=== PATIENT | female | born 1955 | race Caucasian/White ===

== ENCOUNTER 2022-11-09 11:57 | Outpatient (REF) | payer MEDICARE, SELFPAY ==
[2022-11-09 12:40] LABS: Bilirubin Urine NEGATIVE (NEGATIVE); Blood Urine NEGATIVE (NEGATIVE); Clarity Urine CLEAR (CLEAR); Color Urine LT. YELLOW (YELLOW); Glucose Urine UA NEGATIVE (NEGATIVE); Ketones Urine NEGATIVE (NEGATIVE); Leukocyte Esterase Urine MODERATE (NEGATIVE); Nitrite Urine POSITIVE (NEGATIVE); Protein Urine NEGATIVE (NEG/TRACE); Specific Gravity Urine 1.025 (1.005-1.025); Urobilinogen Urine 0.2 EU/dL (0.2-1.0); pH Urine 5.5 (5.0-9.0)
[2022-11-09 14:02] LABS: Thyroid Stimulating Hormone 1.967 uIU/mL (0.358-3.740)
== END 2022-11-09 11:58 | disposition home or self-care (01) ==
LOC: LAB 11:57
PROVIDERS: PCP Family Medicine; Visit Provider Family Medicine
DX: N39.0 Urinary tract infection, site not specified (principal)
CPT/HCPCS: 36415; 81003; 84443; 87086; 87150; 87186

== ENCOUNTER 2023-04-11 09:42 | Outpatient (OUT) | payer MEDICARE, SELFPAY ==
--- NOTE | 2023-04-11 09:47 | XR_ITS ---
[address] [address] Patient Name: MARLEY OSBORN MRN: [id number] date: 1955 Sex: F Assigned Patient Location: [facility] Current Patient Location: [facility] Accession/Order Number: [id number] Exam Date: 04/11/2023 10:10 Report Date: 04/11/2023 11:20 At the request of: KATYA WEAVER Procedure: XR DEXA axial skeleton EXAMINATION: XR DEXA axial skeleton HISTORY: Primary Ovarian Failure Z00.00 COMPARISON: No relevant comparison available. TECHNIQUE: Dual-energy X-ray absorptiometry (DXA) was performed. FINDINGS: SPINE ANALYSIS: Average bone mineral density is 1.237 g/cm2. T-score (standard deviation relative to young adult mean): 0.5 . HIP ANALYSIS: Lowest bone mineral density is within the right femoral trochanter, 0.587 g/cm2. T-score (standard deviation relative to young adult mean): -2.3 . XR/XR DEXA axial skeleton IMPRESSION: [employer] Classification: Osteopenia - Moderate Fracture Risk Electronically authenticated by: DENNIS GALEAS Date: 04/11/2023 11:20
--- NOTE | 2023-04-11 09:47 | MM_ITS ---
Patient Name: MARLEY OSBORN MR#: [id number] : 1955 Exam Date: 04/11/2023 Ordering Doctor: MRS. KATYA WEAVER . RADIOLOGY REPORT PROCEDURE: MM TOMOSYNTHESIS SCREENING BI COMPARISON: MG MAMM SCREEN 3D CHANA CAD, 04/17/2022. MG MAMM SCREEN 3D CHANA CAD, 04/16/2021. MG MAMM SCREEN CHANA W CAD, 04/10/2020. MG MAMM CHANA SCRN W CAD DIG, 07/04/2006. INDICATIONS: Screening Calculator Name NCI Breast Cancer Risk Assessment Tool 5 Year Breast Cancer Risk 5.50% Lifetime Breast Cancer Risk 16.90% Personal Breast Cancer No Personal Ovarian Cancer No Treatments None Family Cancers Mother with breast cancer at age 86; Brother with prostate cancer at age 64; Nephew with colon cancer at age 47; Grandfather-paternal with colon cancer at age ~60; Grandfather-paternal with lung cancer at age 30; Grandmother-maternal with uterine cancer at age ~50. LOCATION: [facility] BREAST COMPOSITION: Heterogeneously dense,which may obscure small masses. FINDINGS: DIAGNOSTIC CATEGORY 0--INCOMPLETE: NEED ADDITIONAL IMAGING EVALUATION. RIGHT BREAST: Spiculated appearing 8 mm mass within posterior upper inner quadrant. Spot magnification views and ultrasound evaluation recommended. LEFT BREAST: No significant suspicious finding. No significant change has occurred. RECOMMENDATIONS: ADDITIONAL MAMMOGRAPHIC VIEWS REQUIRED: RIGHT BREAST - RIGHT CRANIOCAUDAL SPOT MAGNIFICATION VIEW - RIGHT OBLIQUE SPOT MAGNIFICATION VIEW - ULTRASOUND: RIGHT BREAST PLEASE NOTE: A NORMAL MAMMOGRAM DOES NOT EXCLUDE THE POSSIBILITY OF BREAST CANCER. A CLINICALLY SUSPICIOUS PALPABLE LUMP SHOULD BE BIOPSIED. Dictated by: Myles Abraham M.D. on 04/11/2023 at 14:37 Approved by: Myles Abraham M.D. on 04/11/2023 at 14:46
== END 2023-04-11 09:43 | disposition home or self-care (01) ==
PROVIDERS: PCP Family Medicine; Visit Provider Nurse Practitioner
DX: Z12.31 Encounter for screening mammogram for malignant neoplasm of breast (principal); E28.39 Other primary ovarian failure; M85.80 Other specified disorders of bone density and structure, unspecified site; Z80.3 Family history of malignant neoplasm of breast; Z80.0 Family history of malignant neoplasm of digestive organs; Z80.1 Family history of malignant neoplasm of trachea, bronchus and lung; Z80.42 Family history of malignant neoplasm of prostate; Z80.8 Family history of malignant neoplasm of other organs or systems; N63.12 Unspecified lump in the right breast, upper inner quadrant
CPT/HCPCS: 77063; 77067; 77080

== ENCOUNTER 2023-05-01 10:01 | Outpatient (OUT) | payer MEDICARE, SELFPAY ==
--- NOTE | 2023-05-01 10:04 | MM_ITS ---
Patient Name: MARLEY OSBORN MR#: [id number] : 1955 Exam Date: 05/01/2023 Ordering Doctor: MRS. KATYA WEAVER . RADIOLOGY REPORT PROCEDURE: MM DIAGNOSTIC MAMMO UNILAT RT, 05/01/2023, 10:25 US BREAST RT LIMITED, 05/01/2023, 10:36 COMPARISON: MM TOMOSYNTHESIS SCREENING BI, 04/11/2023. MG MAMM SCREEN 3D CHANA CAD, 04/17/2022. MG MAMM SCREEN 3D CHANA CAD, 04/16/2021. MG MAMM SCREEN CHANA W CAD, 04/10/2020. INDICATIONS: Abnormal Screening Mammogram, Breast Mass Calculator Name NCI Breast Cancer Risk Assessment Tool 5 Year Breast Cancer Risk 5.50% Lifetime Breast Cancer Risk 16.90% Personal Breast Cancer No Personal Ovarian Cancer No Treatments None Family Cancers Mother with breast cancer at age 86; Brother with prostate cancer at age 64; Nephew with colon cancer at age 47; Grandfather-paternal with colon cancer at age ~60; Grandfather-paternal with lung cancer at age 30; Grandmother-maternal with uterine cancer at age ~50. LOCATION: [facility] BREAST COMPOSITION: Heterogeneously dense,which may obscure small masses. FINDINGS: DIAGNOSTIC CATEGORY 4--SUSPICIOUS FOR MALIGNANCY. FINDING DOES NOT EXHIBIT CLASSIC FINDINGS OF BREAST CANCER: RIGHT BREAST: Spot magnification views demonstrate an 8 mm poorly marginated, spiculated lesion within the posterior upper inner quadrant approximately 3 o'clock. Ultrasound evaluation demonstrates a poorly defined 6 x 6 x 4 mm mass at the 4 o'clock position 3.8 cm from the nipple. Ultrasound-guided tissue sampling is recommended. RECOMMENDATIONS: ULTRASOUND-GUIDED CORE BIOPSY: RIGHT BREAST PLEASE NOTE: A NORMAL MAMMOGRAM DOES NOT EXCLUDE THE POSSIBILITY OF BREAST CANCER. A CLINICALLY SUSPICIOUS PALPABLE LUMP SHOULD BE BIOPSIED. Dictated by: Myles Abraham M.D. on 05/01/2023 at 13:04 Approved by: Myles Abraham M.D. on 05/01/2023 at 13:12
--- OUTSIDE RECORDS SUMMARY | 2023-05-21 00:47 | XMS_ITS | CCD ---
Author Name Unknown Address [address] [place] [address] Organization [facility] Care Team Providers Care Legal Specialist Name Role Phone MD Melva Escobedo Primary Care Provider MD Reggie Quintana Admit Provider MD Reggie Quintana Attending Provider [phone] MD Judith Cordoba Other Provider [phone] Jamil Lundberg MD Primary Care Provider MICHELE LOZANO Attending Unavailable ESCOBEDO ., DR MELVA Laboy Admitting Unavailable ESCOBEDO ., DR MELVA Laboy Consulting Unavailable ESCOBEDO ., DR MELVA Laboy Primary Care Unavailable ESCOBEDO ., DR MELVA Laboy Attending Unavailable ESCOBEDO ., DR MELVA Laboy Consulting Unavailable ESCOBEDO ., DR MELVA Laboy Primary Care Unavailable ESCOBEDO ., DR MELVA Laboy Admitting Unavailable ESCOBEDO ., DR MELVA Laboy Attending Unavailable HAY ., DR TENORIO Attending Unavailable HAY ., DR TENORIO Admitting Unavailable SAMANTHA .CUCO Consulting Unavailable ESCOBEDO ., DR MELVA Laboy Primary Care Unavailable HAY ., DR TENORIO Consulting Unavailable ESCOBEDO ., DR MELVA Laboy Consulting Unavailable ESCOBEDO ., DR MELVA Laboy Primary Care Unavailable ESCOBEDO ., DR MELVA Laboy Admitting Unavailable ESCOBEDO ., DR MELVA Laboy Attending Unavailable ESCOBEDO ., DR MELVA Laboy Primary Care Unavailable SORAYA ., WILLIAMS Attending Unavailable SORAYA ., WILLIAMS Admitting Unavailable HOY ., DR SOLORZANO Consulting Unavailable ZIEBER, DR DENNIS Soto Consulting Unavailable PAY ., DR FORD Consulting Unavailable GRECHNY .SETH Consulting UnavailDENNIS Kate Consulting Unavailable ALYX GUZMAN Consulting Unavailable MICHELE LOZANO Consulting Unavailable DARAMOLRUCHI Hughes Consulting Unavailable SORAYA ., WILLIAMS Consulting Unavailable ESCOBEDO ., DR MELVA Laboy Primary Care Unavailable FAWWAD, SANTAMARIA H Attending Unavailable FAWWAD, SANTAMARIA H Admitting Unavailable FRANSISCO DE LA CRUZ Consulting Unavailable FAWWAD, SANTAMARIA H Consulting Unavailable GAUTAM, THANIA Consulting Unavailable OWOYELE, WILLY Consulting Unavailable TATUM WHEAT Attending Unavailable TATUM WHEAT Admitting Unavailable ESCOBEDO ., DR MELVA Laboy Primary Care Unavailable TATUM WHEAT Consulting Unavailable JONNY ALEMAN Consulting Unavailable ESCOBEDO ., DR MELVA Laboy Admitting Unavailable ESCOBEDO ., DR MELVA Laboy Consulting Unavailable ESCOBEDO ., DR MELVA Laboy Primary Care Unavailable ESCOBEDO ., DR MELVA Laboy Attending Unavailable GUDELIA, DR DENNIS Soto Consulting Unavailable HAY ., DR TENORIO Consulting Unavailable FAWDARRELL, H Consulting Unavailable JEFF OAKES Consulting Unavailable ESCBOEDO ., DR MELVA Laboy Consulting Unavailable ESCOBEDO ., DR MELVA Laboy Attending Unavailable ESCOBEDO ., DR MELVA Laboy Primary Care Unavailable ESCOBEDO ., DR MELVA Laboy Admitting Unavailable [place], DR KAYLEY Snow Consulting Unavailable ESCOBEDO ., DR MELVA Laboy Primary Care Unavailable ESCOBEDO ., DR MELVA Laboy Consulting Unavailable ESCOBEDO ., DR MELVA Laboy Admitting Unavailable ESCOBEDO ., DR MELVA Laboy Attending Unavailable ESCOBEDO ., DR MELVA Laboy Consulting Unavailable ESCOBEDO ., DR MELVA Laboy Primary Care Unavailable ESCOBEDO ., DR MELVA Laboy Attending Unavailable ESCOBEDO ., DR MELVA Laboy Admitting Unavailable ESCOBEDO ., DR MELVA Laboy Consulting Unavailable ESCOBEDO ., DR MELVA Laboy Attending Unavailable ESCOBEDO ., DR MELVA Laboy Primary Care Unavailable ESCOBEDO ., DR MELVA Laboy Admitting Unavailable DORA LAZARO Attending Unavailable DORA LAZARO Admitting Unavailable ESCOBEDO ., DR MELVA Laboy Primary Care Unavailable DORA LAZARO Consulting Unavailable ESCOBEDO ., DR MELVA Laboy Primary Care Unavailable BLAKE, MICHELE Consulting Unavailable MICHELE LOZANO Attending Unavailable MICHELE LOZANO Admitting Unavailable ESCOBEDO ., DR MELVA Laboy Primary Care Unavailable ESCOBEDO ., DR MELVA Laboy Admitting Unavailable ESCOBEDO ., DR MELVA Laboy Consulting Unavailable ESCOBEDO ., DR MELVA Laboy Attending Unavailable AHMED, IRFAN Primary Care Unavailable ZAIRA SARAVIA Attending Unavailable NHAN JUNE Referring Unavailable AHMED, IRFAN Primary Care Unavailable AHMED, IRFAN Primary Care Unavailable AZUL THOMPSON Referring Unavailable AHMED, IRFAN Primary Care Unavailable AHMED, IRFAN Referring Unavailable AHMED, IRFAN Primary Care Unavailable AHMED, IRFAN Referring Unavailable AHMED, IRFAN Primary Care Unavailable MEE HOFFMANN Referring Unavailable AHMED, IRFAN Primary Care Unavailable MELVA MORALES Referring Unavailable Ahmed, Irfan Primary Care Unavailable Frank MOLDER HELPER-TAXONOMIST, Malissa Soto Consulting Un available Alexandra ROPER, Louie rFeeman Admitting Unavailable Alexandra ROPER, Louie Freeman Attending Unavailable Luz MOLDER HELPER-TAXONOMIST, Cintia Rincon Consulting Unavailable Marosc MOLDER HELPER-TAXONOMIST, Rachel Delcid Consulting Margoth anusha Schulz, Cody Francis Consulting Unavailab shira Casas MD, Kei Veloz Consulting Unavailabl e Ahmed, Irfan Consulting Unavailable Judith Cordoba Consulting Unavailable Reggie Quintana Attending Unavailable Reggie Quintana Admitting Unavailable Melva Escobedo Primary Care Unavailable Melva Escobedo Primary Care Unavailable Marty Mclean Attending Unavailab Marty Ames Admitting Unavailab JOSEPH Quintero Attending Unavailable MELVA ESCOBEDO Attending Unavailable EzequielKeya Attending Unavailable EzequielKeya Attending Unavailable EzequielKeya Attending Unavailable ESCOBEDOMELVA KINNEY Attending Unavailable ESCOBEDOMELVA KINNEY Attending Unavailable EzequielKeya Attending Unavailable Allergies Allergy Classification Reported Allergen(s) Allergy Type Date of Onset Reaction(s) Facility (4 sources) Amoxicillin; Translations: [Amoxicillin] Drug Allergy 5 [facility] (4 sources) Cephalexin; Translations: [CEPHALEXIN] Drug Allergy 2 [facility] (3 sources) Lactose; Translations: [lactose] Drug Allergy 5 [facility] (2 sources) Sulfonamides (Antibiotic); Translations: [Sulfa (Sulfonamide Antibiotics)] Allergy to substance 2 [facility] (3 sources) Penicillins; Translations: [PENICILLINS] Propensity to adverse reactions to drug (disorder) 3 [facility] (3 sources) Sulfamethoxazole; Translations: [SULFAMETHOXAZOLE ] Drug Allergy 3 [facility] Repository (3 sources) Cephalexin; Translations: [Keflex] Drug Allergy 5 [facility] Repository (1 source) Sulfonamides (Antibiotic) Drug allergy (disorder) 5 [facility] Repository (1 source) Sulfonamides (Antibiotic); Translations: [sulfa drugs] Propensity to adverse reactions to drug (disorder) [facility] Repository Medications Current Medications Medication Drug Class(es) Dates Sig (Normalized) Sig (Original) acetaminophen 500 mg oral tablet (2 sources) take 1 tablet by mouth every six hours as needed for pain acetaminophen (TYLENOL) 500 MG tablet Take 1 tablet by mouth every 6 hours as needed for Pain 0 Active amitriptyline hydrochloride 10 mg oral tablet (1 source) Tricyclic Antidepressant Start: 05-30-20 22 take 10 mg by mouth at bedtime Amitriptyline Active 10 MG PO Bedtime May 30, 2022 12:00am apixaban 2.5 mg oral tablet (2 sources) Factor Xa Inhibitor take 2 tablets by mouth twice daily apixaban (ELIQUIS) 2.5 MG TABS tablet Take 2 tablets by mouth 2 times daily 0 Active benztropine mesylate 2 mg oral tablet (2 sources) Anticholinergic, Antihistamine take 1 tablet by mouth twice daily benztropine (COGENTIN) 2 MG tablet Take 1 tablet by mouth 2 times daily 0 Active bisoprolol fumarate 2.5 mg / hydroCHLOROthiazide 6.25 mg oral tablet (1 source) Thiazide Diuretic, beta-Adrenergic Js Start: 05-30-20 22 take 1 tablet by mouth once daily Bisoprolol-Hydrochloro thiazide Active 1 TAB PO Daily May 30, 2022 12:00am calcium chloride 0.001 meq/ml / glucose 50 mg/ml / potassium chloride 0.004 meq/ml / sodium chloride 0.103 meq/ml / sodium lactate 0.028 meq/ml injectable solution (1 source) Start: 10-09-19 23 dextrose 5 % in lactated ringers infusion diphenhydrAMINE hydrochloride 25 mg oral capsule (2 sources) Histamine-1 Receptor Antagonist take 1 capsule by mouth every six hours as needed diphenhydrAMINE (BENADRYL) 25 MG capsule Take 1 capsule by mouth every 6 hours as needed for Itching 0 Active docusate sodium 100 mg oral capsule (2 sources) take 1 capsule by mouth twice daily docusate sodium (COLACE) 100 MG capsule Take 1 capsule by mouth 2 times daily 0 Active ergocalciferol 1.25 mg oral capsule (1 source) Provitamin D2 Compound Start: 06-18-19 take 1250 ug by mouth every week Ergocalciferol (Vitamin D2) Active 1250 MCG PO Q7D June 18, 2022 12:00am 1 ml haloperidol 5 mg/ml injection (2 sources) Typical Antipsychotic haloperidol lactate (HALDOL) 5 MG/ML injection Inject into the muscle every 6 hours as needed for Agitation 0 Active hydroCHLOROthiazide 12.5 mg oral tablet (2 sources) Thiazide Diuretic take 0.5 tablet by mouth once daily as needed hydroCHLOROthiazide (HYDRODIURIL) 12.5 MG tablet Take 0.5 tablets by mouth daily as needed 0 Active levothyroxine sodium 0.1 mg oral tablet (2 sources) l-Thyroxine take 0.5 tablet by mouth once daily levothyroxine (SYNTHROID) 100 MCG tablet Take 0.5 tablets by mouth Daily 0 Active LORazepam 1 mg oral tablet (4 sources) Benzodiazepine take 1 tablet by mouth every six hours as needed for anxiety LORazepam (ATIVAN) 1 MG tablet Take 1 tablet by mouth every 6 hours as needed for Anxiety. Max Daily Amount: 4 mg 0 Active LORazepam (ATIVA N) 2 MG/ML injection Inject 0.5 mLs into the muscle every 6 hours as needed. Max Daily Amount: 4 mg 0 Active metroNIDAZOLE 500 mg oral tablet (1 source) Nitroimidazole Antimicrobial Start: 06-18-2022 take 500 mg by mouth twice daily Metronidazole Active 500 MG PO Twice daily June 18, 2022 12:00am miconazole nitrate 20 mg/ml vaginal cream (1 source) Azole Antifungal Start: 06-18-2022 Miconazole Nitrate (Miconazole-7) 2 % Cream Active 1 APPLICATOR VAGINAL Daily at bedtime June 18, 2022 12:00am last dose 06/21/22 microencapsulated potassium chloride 20 meq extended release oral tablet (3 sources) Start: 06-11-2022 Potassium Chloride (Klor-Con M20) 20 mEq Tablet,Er Particles/Crystals Active 20 MEQ PO Daily June 11, 2022 12:00am take 20 mEq by mouth twice daily potassium chloride (KLOR-CON) 20 MEQ packet Take 20 mEq by mouth 2 times daily 0 Active risperiDONE 3 mg oral tablet (8 sources) Atypical Antipsychotic Start: 06-11-2022 take 1 mg by mouth once daily Risperidone Active 1 MG PO Daily 15 June 11, 2022 12:00am Start: 06-11-2022 take 3 mg by mouth at bedtime Risperidone Active 3 MG PO Bedtime 15 June 11, 2022 12:00am Start: 05-30-2022 End: 06-11-2022 take 2 mg by mouth at bedtime Risperidone Discontinued 2 MG PO Bedtime May 30, 2022 12:00am June 11, 2022 8:35am Start: 05-30-2022 End: 06-11-2022 take 2 mg by mouth at bedtime Risperidone Discontinued 0.5 MG PO Bedtime May 30, 2022 12:00am June 11, 2022 8:35am give with 2mg dose risperiDONE micr ospheres ER (RISPERDAL CONSTA) 25 MG SRER injection Inject 2 mLs into the muscle every 14 days 0 Active ziprasidone 20 mg oral capsule (1 source) Atypical Antipsychotic Start: 06-18-2022 take 20 mg by mouth twice daily Ziprasidone Hcl Active 20 MG PO Twice daily 60 June 18, 2022 12:00am Completed/Discontinued Medications Medication Drug Class(es) Dates Sig (Normalized) Sig (Original) ARIPiprazole 5 mg oral tablet (1 source) Atypical Antipsychotic Start: 05-30-2022 End: 06-11-2022 take 5 mg by mouth once daily Aripiprazole Discontinued 5 MG PO Daily May 30, 2022 12:00am June 11, 2022 8:35am 200 ml ciprofloxacin 2 mg/ml injection (3 sources) Quinolone Antimicrobial Start: 10-08-2022 End: 10-09-2022 ciprofloxacin (CIPRO) IVPB 400 mg take 1 tablet by mouth twice dominga ly ciprofloxacin (CIPRO) 500 MG tablet Take 1 tablet by mouth 2 times daily 0 Active Problems Active Problems Problem Classification Problem Date Documented Date Episodic/Chronic Anxiety disorders (1 source) Anxiety disorder, unspecified; Translations: [ANXIETY DISORDER UNSPECIFIED] Onset: 10-09-2022 Chronic Bacterial infection; unspecified site (2 sources) Klebsiella pneumoniae [K. pneumoniae] as the cause of diseases classified elsewhere; Translations: [Unspecified Escherichia coli [E. coli] as the cause of diseases classified elsewhere] Onset: 09-12-2022 Episodic Cardiac dysrhythmias (8 sources) Paroxysmal atrial fibrillation; Translations: [Unspecified atrial fibrillation] Onset: 09-12-2022 Chronic Cardiac dysrhythmias (3 sources) Bradycardia, unspecified; Translations: [Tachycardia, unspecified] Onset: 06-10-2022 Episodic Chronic kidney disease (1 source) Chronic kidney disease; Translations: [CHRONIC KIDNEY DISEASE STAGE 3B] Onset: 09-12-2022 Coagulation and hemorrhagic disorders (1 source) Thrombocytopenia, unspecified; Translations: [THROMBOCYTOPENIA UNSPECIFIED] Onset: 09-12-2022 Chronic Deficiency and other anemia (1 source) Anemia; Translations: [Anemia, unspecified] 06-01-2022 Episodic Delirium, dementia, and amnestic and other cognitive disorders (1 source) Unspecified dementia without behavioral disturbance; Translations: [UNSP JAMEY UNS SEV W/O DSTRB ANXTY] Onset: 10-09-2022 Chronic Disorders of lipid metabolism (1 source) Hyperlipidemia, unspecified; Translations: [HYPERLIPIDEMIA UNSPECIFIED] Onset: 04-29-2022 Chronic Essential hypertension (10 sources) Hypertensive disorder; Translations: [Essential (primary) hypertension] Onset: 12-12-2021 06-01-2022 Chronic Hypertension with complications and secondary hypertension (1 source) Hypertensive chronic kidney disease with stage 1 through stage 4 chronic kidney disease, or unspecified chronic kidney disease; Translations: [HTN CKD W/STAGE 1-4 CKD/UNS CKD] Onset: 09-12-2022 Chronic Menopausal disorders (1 source) Hormone replacement therapy; Translations: [HORMONE REPLACEMENT THERAPY] Onset: 10-09-2022 Episodic Mood disorders (1 source) Mood disorders; Translations: [DEPRESSION UNSPECIFIED] Onset: 10-09-2022 Nonspecific chest pain (2 sources) Other chest pain; Translations: [Other chest pain] Onset: 09-16-2022 Episodic Other aftercare (5 sources) Other terminal block assembler (current) drug therapy; Translations: [OTH METER ATTENDANT CURRENT DRUG THERAPY] Onset: 11-29-2021 Episodic Other endocrine disorders (1 source) Hypoglycemia, unspecified; Translations: [HYPOGLYCEMIA UNSPECIFIED] Onset: 06-10-2022 Chronic Other nervous system disorders (1 source) Metabolic encephalopathy; Translations: [METABOLIC ENCEPHALOPATHY] Onset: 09-12-2022 Chronic Other nervous system disorders (1 source) Difficulty in walking, not elsewhere classified; Translations: [Difficulty in walking, not elsewhere classified] Onset: 05-30-2022 Chronic Other nutritional; endocrine; and metabolic disorders (1 source) Obesity, unspecified; Translations: [OBESITY UNSPECIFIED] Onset: 10-09-2022 Chronic Other nutritional; endocrine; and metabolic disorders (1 source) Body mass index (BMI) 31.0-31.9, adult; Translations: [BODY MASS INDEX BMI 31.0-31.9 ADULT] Onset: 08-19-2022 Chronic Other nutritional; endocrine; and metabolic disorders (1 source) Body mass index (BMI) 26.0-26.9, adult; Translations: [BODY MASS INDEX BMI 26.0-26.9 ADULT] Onset: 10-09-2022 Episodic Residual codes; unclassified (1 source) Confusional state; Translations: [Disorientation, unspecified] 06-01-2022 Episodic Residual codes; unclassified (1 source) Neurocognitive disorder; Translations: [Unspecified symptoms and signs involving cognitive functions and awareness] 06-05-2022 Episodic Residual codes; unclassified (2 sources) Altered mental status; Translations: [Altered mental status, unspecified] 06-14-2022 Episodic Residual codes; unclassified (1 source) Hypothermia, not associated with low environmental temperature; Translations: [HYPOTHERMIA NOT W/LOW ENVIR TEMP] Onset: 09-12-2022 Episodic Schizophrenia and other psychotic disorders (5 sources) Schizophrenia; Translations: [Schizophrenia, unspecified] Onset: 05-30-2022 05-31-2022 Chronic Thyroid disorders (3 sources) Hypothyroidism, unspecified; Translations: [HYPOTHYROIDISM UNSPECIFIED] Onset: 08-27-2022 Chronic Unclassified (4 sources) CONTACT W/AND (SUSP) EXPOS COVID-19; Translations: [CONTACT W/AND (SUSP) EXPOS COVID-19] Onset: 05-11-2022 Unclassified (1 source) CHRN KIDNEY DISEASE STG 3 UNSP; Translations: [CHRN KIDNEY DISEASE STG 3 UNSP] Onset: 06-10-2022 Viral infection (1 source) COVID-19; Translations: [COVID-19] Onset: 12-19-2021 Past or Other Problems Problem Classification Problem Date Documented Da te Episodic/Chronic Acute and unspecified renal failure (1 source) Acute kidney failure, unspecified; Translations: [ACUTE KIDNEY FAILURE UNSPECIFIED] Onset: 06-10-2022 Episodic Deficiency and other anemia (3 sources) Anemia, unspecified; Translations: [Anemia, unspecified] Onset: 05-30-2022 06-18-2022 Episodic E Codes: Fall (1 source) Fall in (into) shower or empty bathtub, initial encounter; Translations: [FALL IN SHOWER/EMPTY BATHTUB INIT] Onset: 12-18-2021 Episodic E Codes: Natural/environment (1 source) Exposure to other specified factors, initial encounter; Translations: [EXPOSURE OTHER SPEC FACTORS INITIAL] Onset: 06-10-2022 Episodic Fluid and electrolyte disorders (10 sources) Hypokalemia; Translations: [Hypokalemia] Onset: 05-30-2022 06-01-2022 Episodic Genitourinary symptoms and ill-defined conditions (3 sources) Hematuria, unspecified; Translations: [HEMATURIA UNSPECIFIED] Onset: 04-03-2022 Episodic Immunizations and screening for infectious disease (1 source) Encounter for immunization; Translations: [ENCOUNTER FOR IMMUNIZATION] Onset: 12-18-2021 Episodic Inflammatory diseases of female pelvic organs (3 sources) Vaginitis; Translations: [Acute vaginitis] Onset: 05-30-2022 06-15-2022 Episodic Malaise and fatigue (6 sources) Other fatigue; Translations: [Weakness] Onset: 05-30-2022 Episodic Open wounds of head; neck; and trunk (4 sources) Laceration without foreign body of other part of head, initial encounter; Translations: [LAC W/O FB OTH PART HEAD INIT ENC] Onset: 12-15-2021 Episodic Other injuries and conditions due to external causes (1 source) Hypothermia, initial encounter; Translations: [HYPOTHERMIA INITIAL ENCOUNTER] Onset: 06-10-2022 Episodic Other screening for suspected conditions (not mental disorders or infectious disease) (4 sources) Encounter for screening mammogram for malignant neoplasm of breast; Translations: [ENC SCR MAMMO MALIG NEOPLASM BREAST] Onset: 04-17-2022 Episodic Pneumonia (except that caused by tuberculosis or sexually transmitted disease) (1 source) Pneumonia, unspecified organism; Translations: [PNEUMONIA UNSPECIFIED ORGANISM] Onset: 04-29-2022 Episodic Residual codes; unclassified (8 sources) Altered mental status, unspecified; Translations: [Altered mental status] Onset: 05-30-2022 06-18-2022 Episodic Residual codes; unclassified (2 sources) Disorientation, unspecified; Translations: [Unspecified psychosis] Onset: 05-30-2022 06-18-2022 Episodic Residual codes; unclassified (2 sources) Unspecified symptoms and signs involving cognitive functions and awareness; Translations: [Unspecified persistent mental disorders due to conditions classified elsewhere] Onset: 05-30-2022 06-18-2022 Episodic Residual codes; unclassified (1 source) Family history of malignant neoplasm of digestive organs; Translations: [FAM HX MALIG NEOPLASM DIGESTIV ORGN] Onset: 06-10-2022 Episodic Residual codes; unclassified (1 source) Family history of malignant neoplasm of other genital organs; Translations: [FAM HX MALIG NEOPLSM OTH GENIT ORGN] Onset: 06-10-2022 Episodic Residual codes; unclassified (1 source) Family history of ischemic heart disease and other diseases of the circulatory system; Translations: [FAM HX ISCHEMIC HRT DZ OTH DZ CIRC] Onset: 06-10-2022 Episodic Residual codes; unclassified (1 source) Physical restraint status; Translations: [PHYSICAL RESTRAINT STATUS] Onset: 06-10-2022 Episodic Residual codes; unclassified (1 source) Family history of malignant neoplasm of breast; Translations: [FAMILY HX MALIG NEOPLASM OF BREAST] Onset: 04-20-2022 Episodic Residual codes; unclassified (1 source) Family history of malignant neoplasm of trachea, bronchus and lung; Translations: [FAM HX MALIG NEOPLSM TRACH BRON LNG] Onset: 04-20-2022 Episodic Residual codes; unclassified (1 source) Family history of malignant neoplasm of prostate; Translations: [FAMILY HX MALIG NEOPLASM PROSTATE] Onset: 04-20-2022 Episodic Unclassified (1 source) CONTACT W/AND (SUSP) EXPOS COVID-19; Translations: [CONTACT W/AND (SUSP) EXPOS COVID-19] Onset: 05-06-2022 Urinary tract infections (13 sources) Urinary tract infectious disease; Translations: [Urinary tract infection, site not specified] Onset: 05-28-2022 06-01-2022 Episodic Results Test Name Value Interpretation Reference Range Facil ity RAD - Ultrasound Reporton RAD - Ultrasound Report [id number]#1.00TIFF [facility] Physician Orderon 05-02-2023 Physician Order [id number]#1.00TIFF [facility] Dexa Scanson 04-16-2023 Dexa Scans [id number]#1.00TIF F [facility] Lab Reportson 04-16-2023 Lab Reports [id number]#1.00TI FF [facility] Outside Mammographyon 2022 Outside Mammography [id number]#1.00TIFF [facility] Hospice Recordson 03-19-2023 Hospice Records [id number]#1.00TIFF [facility] Ambulatory Visit Summaryon 0 02-21-2023 Ambulatory Visit Summary ALYSEMARLEY OGDEN Martinez :1955 Visit Date:02/21/2023 Ambulatory Visit Instructions Your Diagnosis Annual visit for general adult medical examination without abnormal findings Anxiety disorder Major depression with psychotic features Fall HTN (hypertension) Hyperlipidemia, unspecified LISA (obstructive sleep apnea) Class 1 obesity due to excess calories with body mass index (BMI) of 31.0 to 31.9 in adult Screening mammogram for breast cancer Ovarian failure Tests Performed BD Bone Density DEXA -- Results Pending -- MA Mamm Screen w/CAD if perf and 3D Panchito -- Results Pending -- Please visit your patient portal for your results or contact your primary care physician. Your Care Team Attending Physician - Keya Lucas Primary Care Physician - Keya Lucas This Is Your Medications List HYDROmorphone (Dilaudid) Misc Prescription (Handicap Placard) acetaminophen bisacodyl haloperidol (haloperidol 5 mg Tab) levothyroxine (levothyroxine 50 mcg (0.05 mg) Tab) quetiapine (quetiapine 25 mg Tab) quetiapine (quetiapine 50 mg oral tablet) senna (senna 8.6 mg Tab) Procedures Performed Colonoscopy (01/2019), CEIOL - Cataract extraction and insertion of intraocular lens (04/28/2017), Tonsillectomy and adenoidectomy. Discharge Vitals Heart Rate (Peripheral) 86 Blood Pressure 102/68 Height 153 cm Height 60 in Weight 74.6 kg Weight 164.12 lb BMI 31.87 What to do next Scheduled Follow-Up Appointments Friday 11:00 AM EDT Where: [facility] Medicine Office/Clini c Noteon 02-21-2023 Family Medicine Office/Clinic Note Chief Complaint Subsequent Medicare Wellness Visit Review of Systems PHQ Score Initial Depression Screen Score: 0 Physical Exam Vitals & Measurements HR: 86(Peripheral) BP: 102/68 SpO2: 96% HT: 153 cm HT: 60 in WT: 74.6 kg WT: 164.12 lb BMI: 31.87 Assessment/Plan 1. Annual visit for general adult medical examination without abnormal findings (Z00.00: Encounter for general adult medical examination without abnormal findings) The patient is accompanied by spouse, patient was given a customized and personalized print out of all the current AHRQ USPSTF?s recommendations for preventative services and all current CDC recommended immunizations, relevant risk recommendations and the following patient brochures were given. Reviewed Medicare preventative services checklist. CDC-Falls Prevention and home safety screening reviewed. Patient has had 3 falls in last 12 months (while in SNF), voices no worry about falling, exhibits no problems with sitting, standing, or ambulation. Pt voices understanding with keeping walk way area free of clutter to prevent tripping and/or falling. [place] Advance Directives reviewed, patient has copy at home, encouraged to bring in for scanning to chart. Patient denies any problems with ADL?s and Instrumental ADL?s. Cognitive screening completed with memory and clock face drawing. Immunization Record reviewed with the patient. Discussed Shingrix vaccine with educational handout and availability. COVID vaccines have been administered, with 2 boosters, immunization record is up to date. Allergies and medications reviewed and up to date. Patient denies concerns with taking medication as prescribed, reviewed OTC medications with patient, medication list up to date. Blood tests were reviewed: are up to date at this time. Colonoscopy last completed at [facility], has been requested. DEXA scan and Mammogram ordered and faxed to [facility]. Reviewed pain symptoms with patient: reports no pain symptoms. Reviewed all outside providers that patient follows. Last visit summary notes available in chart and/or have been requested. Follow up scheduled as needed AWV has been scheduled, 02/24/2024 15 minutes for completion of Alcohol screening questionnaire, documentation, discussion with patient, provider review. AUDIT score 0. Patient denies alcohol use. No concerns at this time. 2. Anxiety disorder (F41.9: Anxiety disorder, unspecified) Patient taking medications as prescribed, voices effectiveness with medication. [id number] completed with negative findings. Risk score of 0. Following up with PCP as directed with symptom and medication management. Reviewed concerns that needs to be discussed during office visits such as: changes with worrying too much and it is interfering with your work, relationships and/or other parts of your life. Your fear, worry or anxiety is upsetting to you and difficult to control. If additional trouble with depression is noticeable contact your provider. Patient does voice understanding. 3. Major depression with psychotic features (F32.3: Major depressive disorder, single episode, severe with psychotic features) Patient taking Seroquel daily, voices medication is effective. Follows up with PCP with medication management and symptom control. PHQ-9 risk assessment completed with negative findings. Total risk score 6. Patient denies any suicidal ideations at this time. Reviewed additional signs/symptoms to monitor for and report to provider. 4. Fall (W19.XXXA: Unspecified fall, initial encounter) Patient states she is moving slower but is getting stronger/better. Patient denies having any falls since SNF d/c a few weeks ago. While in the SNF patient/ spouse noted that she did have a couple falls without injury. Patient requested a handicap placard- provided. 5. HTN (hypertension) (I10: Essential (primary) hypertension) Patient is not taking medication at this time. Does monitor BP pressure at home. HTN stoplight reviewed with BP goal to be <140/90. Reviewed different factors that can alter blood pressure readings. Education handout provided with s/s to monitor for and report to provider. Patient is encouraged to increase portions of fruit, vegetables, fiber and increase exercise as much as tolerable. Reviewed importance with monitoring foods high in salt content and encouraged to limit intake, if unsure encouraged to discuss with their PCP. Encouraged to eat more chicken, fish and lean white meats and limits red meats in diet. Discussed importance with keeping BP under good control to reduce CVA risk factors. BP in office today 102/68. Will continue to f/u with PCP during office visits and as needed. 6. Hyperlipidemia, unspecified (E78.5: Hyperlipidemia, unspecified) Reviewed healthy lifestyle with low fat diet and exercise regimen. When you are overweight our body produces more lipids. Risk also increases with family history of hyperlipidemia and with monitoring alcohol use and avoid smoking. (more content not included)... Normal [facility] Comment on above: Result Comment: Elec tronically Signed By: Keya Lucas\.br\Date and Time Signed: 02/21/23 13:49 EDT\.br\Electronically Co-Signed By: Kel Mcgee\.br\Date and Time Co- Signed: 02/21/23 12:06 EDT Patient Educationon 02-22-20 Patient Education Fall Prevention in t Home, Adult Falls can cause injuries and affect people of all ages. There are many simple things that you can do to make your home safe and to help prevent falls. Ask for help when making these changes, if needed. What actions can I take to prevent falls? General instructions ? Use good lighting in all rooms. Replace any light bulbs that burn out, turn on lights if it is dark, and use night-lights. ? Place frequently used items in yuzj-kt-onwdr places. Lower the shelves around your home if necessary. ? Set up furniture so that there are clear paths around it. Avoid moving your furniture around. ? Remove throw rugs and other tripping hazards from the floor. ? Avoid walking on wet floors. ? Fix any uneven floor surfaces. ? Add color or contrast paint or tape to grab bars and handrails in your home. Place contrasting color strips on the first and last steps of staircases. ? When you use a stepladder, make sure that it is completely opened and that the sides and supports are firmly locked. Have someone hold the ladder while you are using it. Do not climb a closed stepladder. ? Know where your pets are when moving through your home. What can I do in the bathroom? ? Keep the floor dry. Immediately clean up any water that is on the floor. ? Remove soap buildup in the tub or shower regularly. ? Use nonskid mats or decals on the floor of the tub or shower. ? Attach bath mats securely with double-sided, nonslip rug tape. ? If you need to sit down while you are in the shower, use a plastic, nonslip stool. ? Install grab bars by the toilet and in the tub and shower. Do not use towel bars as grab bars. What can I do in the bedroom? ? Make sure that a bedside light is easy to reach. ? Do not use oversized bedding that reaches the floor. ? Have a firm chair that has side arms to use for getting dressed. What can I do in the kitchen? ? Clean up any spills right away. ? If you need to reach for something above you, use a sturdy step stool that has a grab bar. ? Keep electrical cables out of the way. ? Do not use floor paraguayan or wax that makes floors slippery. If you must use wax, make sure that it is non-skid floor wax. What can I do with my stairs? ? Do not leave any items on the stairs. ? Make sure that you have a light switch at the top and the bottom of the stairs. Have them installed if you do not have them. ? Make sure that there are handrails on both sides of the stairs. Fix handrails that are broken or loose. Make sure that handrails are as long as the staircases. ? Install non-slip stair treads on all stairs in your home. ? Avoid having throw rugs at the top or bottom of stairs, or secure the rugs with carpet tape to prevent them from moving. ? Choose a carpet design that does not hide the edge of steps on the stairs. ? Check any carpeting to make sure that it is firmly attached to the stairs. Fix any carpet that is loose or worn. What can I do on the outside of my home? ? Use bright outdoor lighting. ? Regularly repair the edges of walkways and driveways and fix any cracks. ? Remove high doorway thresholds. ? Trim any shrubbery on the main path into your home. ? Regularly check that handrails are securely fastened and in good repair. Both sides of all steps should have handrails. ? Install guardrails along the edges of any raised decks or porches. ? Clear walkways of debris and clutter, including tools and rocks. ? Have leaves, snow, and ice cleared regularly. ? Use sand or salt on walkways during winter months. ? In the garage, clean up any spills right away, including grease or oil spills. What other actions can I take? ? Wear closed-toe shoes that fit well and support your feet. Wear shoes that have rubber soles or low heels. ? Use mobility aids as needed, such as canes, walkers, scooters, and crutches. ? Review your medicines with your health care provider. Some medicines can cause dizziness or changes in blood pressure, which increase your risk of falling. Talk with your health care provider about other ways that you can decrease your risk of falls. This may include working with a physical therapist or skills trainer to improve your strength, balance, and endurance. Where to find more information ? Centers for Disease Control and Prevention, STEADI: www.cdc.gov ? National Daniels on Aging: www.barrera.nih.gov Contact a health care provider if: ? You are afraid of falling at home. ? You feel weak, drowsy, or dizzy at home. ? You fall at home. Summary ? There are many simple things that you can do to make your home safe and to help prevent falls. ? Ways to make your home safe include removing tripping hazards and installing grab bars in the bathroom. ? Ask for help when making these changes in your home. This information is not intended to replace advice given to you by your health care provider. (more content not included)... Normal [facility] 02-21-2023 Screens [id number] :[address] [facility] Ambulatory Visit Summaryon 0 02-04-2023 Ambulatory Visit Summary MARLEY OSBORN :1955 Visit Date:02/04/2023 Ambulatory Visit Instructions Your Diagnosis BMI 31.0-31.9,adult Non-smoker Major depression with psychotic features Anxiety disorder Your Care Team Attending Physician - Keya Lucas Primary Care Physician - Keya Lucas This Is Your Medications List haloperidol (haloperidol 5 mg Tab) levothyroxine (levothyroxine 50 mcg (0.05 mg) Tab) quetiapine (quetiapine 25 mg Tab) quetiapine (quetiapine 50 mg oral tablet) senna (senna 8.6 mg Tab) Procedures Performed Colonoscopy (01/2019), CEIOL - Cataract extraction and insertion of intraocular lens (04/28/2017), Tonsillectomy and adenoidectomy. Discharge Vitals Heart Rate (Peripheral) 74 Respiratory Rate 18 Blood Pressure 112/82 Height 154.9 cm Height 61 in Weight 75 kg Weight 165 lb BMI 31.26 Medications What How Much When Instructions Changed haloperidol (haloperidol 5 mg Tab) 1 Tablets By Mouth 3 times a day Pickup at [facility]/pharmacy #[id number] Changed levothyroxine (levothyroxine 50 mcg (0.05 mg) Tab) 1 Tablets By Mouth Every day Pickup at [facility]/pharmacy #[id number] Changed quetiapine (quetiapine 25 mg Tab) 1 Tablets By Mouth Every day Pickup at [facility]/pharmacy #[id number] Changed quetiapine (quetiapine 50 mg oral tablet) 1 Tablets By Mouth Every day Pickup at [facility]/pharmacy #[id number] Changed senna (senna 8.6 mg Tab) 1 Tablets By Mouth 2 times a day Pickup at [facility]/pharmacy #[id number] Pharmacy Information [facility]/pharmacy #[id number]: [address] [place], [place] [id number] [phone] Allergies Keflex (rash) penicillins (rash) sulfamethoxazole (rash) Problems Ongoing - Any problem that you are currently receiving treatment for. Anxiety disorder HTN (hypertension) Hyperlipidemia, unspecified Loss of memory Major depression with psychotic features LISA (obstructive sleep apnea) Spasm of muscle Historical - Any problem that you are no longer receiving treatment for. Depression Hypothyroidism IBS - Irritable bowel syndrome Paranoid schizophrenia Normal [facility] Medicine Office/Clini c Noteon 02-04-2023 Family Medicine Office/Clinic Note HPI Staff Marley is a 67 year old female presenting to [facility] care Establish Care: History: Any previous diagnosis: Aniety, HTN, HLD, LISA History of seeing any specialist: When was your last doctors visit: Last provider: Fanny Any recent labs: Health Maintenance UTD: Colonoscopy: Mammogram: Pelvic/Pap: Acute: Current issues/complaints: pt recently just d/c [facility] for 3 months, walking without walker History of Present Illness pt presents today to [facility] Review of Systems PHQ Score Initial Depression Screen Score: 0 ROS - Provider Constitutional: no fever, no chills, no sweats, no fatigue Respiratory: no shortness of breath, no cough, no orthopnea, no wheezing. Cardiovascular: no chest pain, no palpitations, no edema. Neurologic: no headache, no dizziness, no numbness, no weakness. Physical Exam Vitals & Measurements HR: 74(Peripheral) RR: 18 BP: 112/82 SpO2: 96% HT: 61 in HT: 154.9 cm WT: 75 kg WT: 165 lb BMI: 31.26 General: alert, no acute distress ENMT: oral mucosa moist, no pharyngeal erythema or exudate Cardiovascular: regular rate and rhythm, normal peripheral perfusion Respiratory: Lungs CTA, respirations non labored Extremities: no deformity, no trauma Neurological: oriented x 4, LOC appropriate for age, CN II-XII intact, motor strength equal & normal bilaterally, speech normal Assessment/Plan 1. Major depression with psychotic features (F32.3: Major depressive disorder, single episode, severe with psychotic features) pt presents today to establish care. Was in a skilled nursing for 3 months. she was in a catatonic state and her wasn't sure if she would survive. she is doing very well today. answers questions appropriately. will need refills. states that she had labs by Dr. Escobedo in June. will call [place] for results. pt to return in June 2023 for wellness exam and labs. 2. Anxiety disorder (F41.9: Anxiety disorder, unspecified) meds refilled 3. Schizophrenia (F20.9: Schizophrenia, unspecified) meds refilled 4. Non-smoker (Z78.9: Other specified health status) continue not smoking 5. BMI 31.0-31.9,adult (Z68.31: Body mass index [BMI] 31.0-31.9, adult) bmi education complete Orders: haloperidol, 5 mg = 1 tab(s), Oral, TID, # 270 tab(s), Refills(s) 1, [id number], 154.9, cm, 02/04/23 10:18:00 EDT, Height/Length Dosing, 75, kg, 02/04/23 10:18:00 EDT, Weight Dosing levothyroxine, 50 mcg = 1 tab(s), Oral, Daily, # 90 tab(s), Refills(s) 1, [id number], 154.9, cm, 02/04/23 10:18:00 EDT, Height/Length Dosing, 75, kg, 02/04/23 10:18:00 EDT, Weight Dosing potassium chloride, 20 mEq = 1 tab(s), Oral, BID, # 180 tab(s), Refills(s) 3, [id number], 154.9, cm, 09/10/22 10:27:00 EDT, Height/Length Dosing, 76.2, kg, 09/10/22 10:27:00 EDT, Weight Dosing quetiapine, 25 mg = 1 tab(s), Oral, Daily, # 90 tab(s), Refills(s) 1, [id number], 154.9, cm, 02/04/23 10:18:00 EDT, Height/Length Dosing, 75, kg, 02/04/23 10:18:00 EDT, Weight Dosing quetiapine, 50 mg = 1 tab(s), Oral, Daily, # 90 tab(s), Refills(s) 1, [id number], 154.9, cm, 02/04/23 10:18:00 EDT, Height/Length Dosing, 75, kg, 02/04/23 10:18:00 EDT, Weight Dosing senna, 8.6 mg = 1 tab(s), Oral, BID, # 60 tab(s), Refills(s) 3, Pharmacy: [facility]/pharmacy #[id number], 154.9, cm, 02/04/23 10:18:00 EDT, Height/Length Dosing, 75, kg, 02/04/23 10:18:00 EDT, Weight Dosing Follow-up No qualifying data available Problem List/Past Medical History Ongoing Anxiety disorder HTN (hypertension) Hyperlipidemia, unspecified Loss of memory Major depression with psychotic features LISA (obstructive sleep apnea) Schizophrenia Spasm of muscle Historical Depression Hypothyroidism IBS - Irritable bowel syndrome Paranoid schizophrenia Procedure/Surgical History Colonoscopy (01/2019), CEIOL - Cataract extraction and insertion of intraocular lens (04/28/2017), Tonsillectomy and adenoidectomy. Medications haloperidol 5 mg Tab, 5 mg= 1 tab(s), Oral, TID, 1 refills levothyroxine 50 mcg (0.05 mg) Tab, 50 mcg= 1 tab(s), Oral, Daily, 1 refills quetiapine 25 mg Tab, 25 mg= 1 tab(s), Oral, Daily, 1 refills quetiapine 50 mg oral tablet, 50 mg= 1 tab(s), Oral, Daily, 1 refills senna 8.6 mg Tab, 8.6 mg= 1 tab(s), Oral, BID, 3 refills Allergies Keflex (rash) penicillins (rash) sulfamethoxazole (rash) Social History Tobacco Never (less than 100 in lifetime) Tobacco Use:. Never Smokeless Tobacco Use:. Household tobacco concerns: No., 02/04/2023 Family History Dementia: Brother and Brother. Immunizations Vaccine Date Status Comments SARS-CoV-2 (COVID-19) mRNAMUL.ORD![id number] 03/09/2022 Recorded 2022-08-09: TPV65 influenza virus vaccine, inactivated 02/14/2022 Recorded SARS-CoV-2 (COVID-19) mRNA-1273 vaccine 03/29/2021 Recorded 2022-08-09: TPV65 influenza virus vaccine, inactivated 01/27/2021 Recorded SARS-CoV-2 ( (more content not included)... Normal [facility] Comment on above: Result Comment: Elec tronically Signed By: Keya Lucas\.br\Date and Time Signed: 02/04/23 10:44 EDT [facility] Recordson 02-04 [facility] Records [id number]:127 [facility] Transfer Inon 02-04-2023 Transfer In [id number] D:127 Normal [facility] C [place] 10-14-2022 C Bld Final No growth at 5 days. Normal [facility] Comment on above: Performed By: #### U CI #### [place] [address] .eGFRon 10-13-2022 Estimated GFR 54 mL/min/1.73m? Low >=60 [facility] Comment on above: Result Comment: [facility] have implemented the eGFR calculation approach that does not have a coefficient for race and that conforms to the NKF-ASN Task Force Recommendations. Stages of Chronic Kidney Disease GFR Stage 3a Mild to moderate loss of kidney function 59 to 45 Stage 3b Moderate to severe loss of kidney function 44 to 33 Stage 4 Severe loss of kidney function 29 to 15 Stage 5 Kidney failure Less than 15 GFR calculated using the CKD-Epi Creatinine Equation (2020): eGFR = 142 X min(SCr/?, 1)? X max(SCr /?, 1)-1.200 X 0.9938Age X 1.012 [if female] Abbreviations/Units: eGFR (estimated glomerular filtration rate) = mL/min/1.73 m2 SCr (standardized serum creatinine) = mg/dL ? = 0.7 (females) or 0.9 (males) ? = -0.241 (females) or -0.302 (males) min = indicates the minimum of SCr/? or 1 max = indicates the maximum of SCr/? or 1 Age = years Performed By: #### E GFR ####[place] [address] CBC w/ Diffon 10-13-2022 Erythrocyte distribution wid th (RBC) [Ratio] 16.3 % High 11.6-14.8 [facility] Comment on above: Performed By: #### C [id number] #### [address] [address] Hematocrit (Bld) [Volume fraction] 31.7 % Low 36.0-46.0 [facility] Comment on above: Performed By: #### C [id number] #### [address] [address] Hemoglobin (Bld) [Mass/Vol] 10.6 g/dL Low 12.0-16. 0 [facility] Comment on above: Performed By: #### C [id number] #### [address] [address] MCH (RBC) [Entitic mass] 31.5 pg Normal 27.0-35.0 [facility] Comment on above: Performed By: #### C [id number] #### [address] [address] MCHC 33.5 % Normal 31.0-37.0 [facility] Comment on above: Performed By: #### C [id number] #### [address] [address] MCV (RBC) [Entitic vol] 94.0 fL Normal 80.0-100.0 [facility] Comment on above: Performed By: #### C [id number] #### [address] [address] Platelet 216 x10*3/mcL Normal 150-350 [facility] Comment on above: Performed By: #### C [id number] #### [address] [address] Platelet mean volume (Bld) [Entitic vol] 8.7 fL Normal 6.7-10.6 [facility] Comment on above: Performed By: #### C [id number] #### [address] [address] RBC 3.37 x10*6/mcL Low 3.80-5.20 [facility] Comment on above: Performed By: #### C [id number] #### [address] [address] WBC 6.5 x10*3/mcL Normal 4.5-11.0 [facility] Comment on above: Performed By: #### C [id number] #### [address] [address] Diff Autoon 10-13-2022 Baso Absolute 0.0 x10*3/mcL Normal 0.0-0.2 [facility] Comment on above: Performed By: #### C [id number] #### [address] [address] Basophils/100 WBC (Bld) 0.6 % Normal 0.0-1.5 [facility] Comment on above: Performed By: #### C [id number] #### [address] [address] Eos Absolute 0.1 x10*3/mcL Normal 0.0-0.4 [facility] Comment on above: Performed By: #### C [id number] #### [address] [address] Eosinophils/100 WBC (Bld) 2.1 % Normal 0.0-5.4 [facility] Comment on above: Performed By: #### C [id number] #### [address] [address] Lymph Absolute 0.8 x10*3/mcL Low 1.0-4.8 [facility] Comment on above: Performed By: #### C [id number] #### [address] [address] Lymphocytes/100 WBC (Bld) 12.1 % Low 27.2-40.8 [facility] Comment on above: Performed By: #### C [id number] #### [address] [address] [place] Absolute 0.4 x10*3/mcL Normal 0.1-1.1 [facility] Comment on above: Performed By: #### C [id number] #### [address] [address] Monocytes/100 WBC (Bld) 6.2 % Normal 3.7-11.9 [facility] Comment on above: Performed By: #### C [id number] #### [address] [address] Neutro Absolute 5.1 x10*3/mcL Normal 1.8-7.7 [facility] Comment on above: Performed By: #### C [id number] #### [address] [address] Neutro Auto 79.0 % High 47.2-70.8 [facility] Comment on above: Performed By: #### C D:[id number] #### [address] [address] Inpatient Clinical Summaryon 10-13-2022 Inpatient Clinical Summary [address] [address] [place] [address] Clinical Summary Person Information Name: Marley Osborn Age: 66 Years : 1955 Sex: Female PCP: Jamil Lundberg MD Marital Status: Phone: PCP: [phone] Race: White Ethnicity: Not or Language: Greenlandic Visit Id: Visit Reason: hypernatremia, AMS Speciality: Acuity: Enc Type: Inpatient Med Service: Medicine-General Arrival: 10/09/2022 08:56:04 Discharge: Dispo Type: Address: [address] [place] [address] Diagnosis: 1:Hypernatremia; 2:Schizophrenia; 3:Hypothermia; 4:Metabolic encephalopathy; 5:Chronic anticoagulation; 6:Bradycardia; 7:Encounter for palliative care Discharged To: Home Treatments: Devices/Equipment: Professional Skilled Services: Special Services and Community Resources: Mode of Discharge Transportation: Discharge Orders Allergies Keflex (Unknown) amoxicillin (Unknown) sulfa drugs (Unknown) Functional Status: Sensory Deficits: History of Falls: Mobility Assistance Prior to Admission: ADLs: Complete assist Gait: Unable to assess Ambulation Assist: Assistive Device: Gait belt, Walker Special Orthopedic Devices: Current Level of Assistance for Self-Care/Mobility: Cognitive Status: Orientation: Orientation Assessment Identifies self Level of Consciousness: Alert Characteristics of Speech: Imprecise Aspiration Risk: None Affect/Behavior: Agitated, Confused, Irritable, Restless Laboratory or Other Results This Visit (last charted value for your 10/09/2022 visit) Blood Gases 10/09/2022 1:37 PM HCO3 Art: 32 mEq/L -- Normal range between ( 21 and 27 ) pCO2 Art: 55 mmHg -- Normal range between ( 35 and 45 ) pH Art: 7.38 -- Normal range between ( 7.35 and 7.45 ) pO2 Art: 112 mmHg -- Normal range between ( 80 and 100 ) Base Excess Art: 6.0 mEq/L HbO2 Art: 97 % total -- Normal range between ( 94 and 100 ) Carboxyhemoglobin Arterial: 1.0 % total -- Normal range between ( 0.0 and 2.0 ) Hb Totl Arterial: 9.3 g% -- Normal range between ( 12.0 and 16.0 ) Met Hb Arterial: 0.6 % total -- Normal range between ( 0.0 and 2.0 ) Hematology 10/13/2022 7:12 AM WBC: 6.5 x10 RBC: 3.37 x10 Neutro Auto: 79.0 % -- Normal range between ( 47.2 and 70.8 ) Lymph Auto: 12.1 % -- Normal range between ( 27.2 and 40.8 ) Ciales Auto: 6.2 % -- Normal range between ( 3.7 and 11.9 ) Eos Auto: 2.1 % -- Normal range between ( 0.0 and 5.4 ) Basophil Auto: 0.6 % -- Normal range between ( 0.0 and 1.5 ) Baso Absolute: 0.0 x10 MCV: 94.0 fL -- Normal range between ( 80.0 and 100.0 ) MCHC: 33.5 % -- Normal range between ( 31.0 and 37.0 ) Lymph Absolute: 0.8 x10 Hct: 31.7 % -- Normal range between ( 36.0 and 46.0 ) Ciales Absolute: 0.4 x10 MCH: 31.5 pg -- Normal range between ( 27.0 and 35.0 ) Neutro Absolute: 5.1 x10 Hgb: 10.6 g/dL -- Normal range between ( 12.0 and 16.0 ) Mean Platelet Volume: 8.7 fL -- Normal range between ( 6.7 and 10.6 ) Platelet: 216 x10 Eos Absolute: 0.1 x10 RDW: 16.3 % -- Normal range between ( 11.6 and 14.8 ) Coagulation 10/09/2022 11:28 AM PT: 11.5 seconds -- Normal range between ( 9.3 and 11.9 ) INR: 1.1 ratio PTT: 29.1 seconds -- Normal range between ( 20.6 and 29.2 ) Urinalysis 10/09/2022 11:04 AM UA Color: Yellow UA Urobilinogen: Normal mg/dL UA Bili: Negative UA Ketones: 10 mg/dL UA Leukocyte Esterase: 500 UA Nitrite: Negative UA Glucose: Normal mg/dL UA Bacteria: Present /HPF UA Protein: 30 mg/dL UA Blood: Negative UA Spec Grav: 1.026 -- Normal range between ( 1.003 and 1.035 ) UA pH: 5.0 UA Clarity: Turbid UA Source: Catheter UA WBC Clmp: Present /HPF UA Mucus: Present /LPF UA CA Oxalate: Present /HPF UA WBC Quant: 151 /HPF -- Normal range between ( 0 and 5 ) UA RBC Quant: 39 /HPF -- Normal range between ( 0 and 5 ) UA Squepi Cells Quant: 1 /HPF -- Normal range between ( 0 and 29 ) Chemistry 10/13/2022 7:12 AM Creatinine Lvl: 1.11 mg/dL -- Normal range between ( 0.44 and 1.03 ) BUN: 10 mg/dL -- Normal range between ( 8 and 26 ) Glucose Lvl: 114 mg/dL -- Normal range between ( 70 and 99 ) Potassium Lvl: 4.1 mmol/L -- Normal range between ( 3.4 and 4.8 ) Sodium Lvl: 141 mmol/L -- Normal range between ( 133 and 142 ) Calcium Lvl: 9.4 mg/dL -- Normal range between ( 8.5 and 10.3 ) Phosphorus: 2.4 mg/dL -- Normal range between ( 2.5 and 4.6 ) Albumin Lvl: 3.3 g/dL -- Normal range between ( 3.2 and 4.9 ) Magnesium Lvl: 1.8 mg/dL -- Normal range between ( 1.7 and 2.4 ) Chloride: 108 mmol/L -- Normal range between ( 98 and 110 ) CO2: 27 mmol/L -- Normal range between ( 22 and 32 ) Anion Gap: 10 -- Normal range between ( 7 and 17 ) Estimated GFR: 54 mL/min/1.73m? BUN Crea Ratio: 9.0 -- Normal range between ( 10.0 and 20.0 ) 10/10/2022 2:01 PM Creatine Phosphokinas (more content not included)... Normal [facility] Magnesiumon 10-13-2022 Magnesium [Mass/Vol] 1.8 mg/dL Normal 1.7-2.4 [facility] Comment on above: Performed By: #### C [id number] #### [place] [id number] Nephrology Progress Noteon 0 10-13-2022 Nephrology Progress Note Subjective at bedside. Plan is to transfer to hospice care today closer to patients home. She is awake, has taken a few bites of pudding from staff. She is nonconversant. Review of Systems as above Objective Vitals & Measurements T: 36.1 ?C (Axillary) HR: 60 (Monitored) RR: 16 BP: 110/60 SpO2: 98% HT: 165 cm WT: 70.4 kg BMI: 26.08 Additional Vitals No qualifying data available. Lab Results Microbiology - Current Encounter Culture Urine: POS Critical (10/09/22) Labs (Last four charted values) WBC 6.5 (OCTOBER 13) 7.6 (OCTOBER 10) 5.8 (OCTOBER 09) Hgb L 10.6 (OCTOBER 13) L 10.0 (OCTOBER 10) L 9.7 (OCTOBER 09) Hct L 31.7 (OCTOBER 13) L 30.2 (OCTOBER 10) L 29.2 (OCTOBER 09) Plt 216 (OCTOBER 13) 211 (OCTOBER 10) 187 (OCTOBER 09) Na 141 (OCTOBER 13) H 145 (OCTOBER 12) H 146 (OCTOBER 10) H 148 (OCTOBER 10) K 4.1 (OCTOBER 13) 4.2 (OCTOBER 12) 3.4 (OCTOBER 10) 3.6 (OCTOBER 10) CO2 27 (OCTOBER 13) 29 (OCTOBER 12) 28 (OCTOBER 10) 28 (OCTOBER 10) Cl 108 (OCTOBER 13) H 111 (OCTOBER 12) H 113 (OCTOBER 10) H 113 (OCTOBER 10) Cr H 1.11 (OCTOBER 13) H 1.19 (OCTOBER 12) H 1.20 (OCTOBER 10) H 1.24 (OCTOBER 10) BUN 10 (OCTOBER 13) 16 (OCTOBER 12) 26 (OCTOBER 10) 26 (OCTOBER 10) Mg 1.8 (OCTOBER 13) 2.2 (OCTOBER 10) L 1.5 (OCTOBER 09) Phos L 2.4 (OCTOBER 13) L 2.4 (OCTOBER 10) 2.8 (OCTOBER 09) PT 11.5 (OCTOBER 09) INR 1.1 (OCTOBER 09) PTT 29.1 (OCTOBER 09) Diagnostic Results Magnetic Resonance Imaging MRI Brain and MRA Head w/o Contrast 10/10/22 16:51:21 IMPRESSION: Motion degraded examination. No findings of acute intracranial infarct Signed By: Zachery Quintanilla MD Physical Exam Constitutional: awake, noncommunicative, no acute distress ENT: Normocephalic Neck: Supple, non-tender, no lymphadenopathy, trachea midline Lungs: clear, room air with o2 sat 97% CV: Normal rate, regular rhythm Abdomen: Soft, round, normal bowel sounds. Musculoskeletal: minimal movement Skin: Skin is warm, dry and pale, multiple healing bruises on legs, arms and trunk Neurologic: awake, eyes open, noncommunicative, did not follow directions Ellison cath intact with yellow urine Medications Inpatient acetaminophen, 650 mg, Oral, q6hr, PRN acetaminophen, 650 mg, Oral, q6hr, PRN Ativan, 1 mg= 0.5 mL, IV Push, [id number] Times, PRN Benadryl, 25 mg, Oral, q6hr, PRN D5W w/K20 1,000 mL, 1000 mL, IV docusate sodium, 100 mg, Oral, BID levothyroxine, 50 mcg, Oral, Daily Lovenox, 80 mg= 0.8 mL, 1 mg/kg, Subcutaneous, q12hr nitroglycerin, 0.4 mg, SL, q5min, PRN Normal Saline Flush 0.9% injectable solution, 10 mL, IV Push, As Indicated, PRN Normal Saline Flush 0.9% injectable solution, 10 mL, IV Push, BID ondansetron, 4 mg= 2 mL, IV Push, q4hr, PRN polyethylene glycol 3350, 17 g= 1 EA, Oral, Daily, PRN Assessment/Plan 1. Hypernatremia Patient with known catatonic schizophrenia/TD admitted with AMS, hypernatremia due to free water losses and prerenal MILAGRO. Initially managed with Isotonic IVF at outside facility without improvements. Serum sodium range 150-156 mmol/L. Calculated free water deficits 2.75L. She has chronic hypernatremia with appropriate rate of correction on hypotonic IV fluid replacement. DNR CC status with comfort measures. She has minimal intake with poor prognosis, plan is for transfer to hospice center closer to patients home so her can be there. Agree with plan. Patient was transferred from [place] for hypernatremia, AMS, hypotension, hypothermia, UTI and multiple electrolyte imbalances. Sodium level on 10/04/22 was elevated at 150. Admission to [place] ER her sodium was 158 at 13:25. Subsequent sodium levels: 10/08 at 18:23-152, 22:00-155, 10/09 at 02:00- 154, 04:00- 156, 06:00- 156. Hypomagnesemia improved with IV magnesium sulfate. Hypophosphatemia due to poor nutrition. Neurology and behavioral health recommendations noted 2. Schizophrenia 3. Hypothermia 4. Metabolic encephalopathy 5. Chronic anticoagulation 6. Bradycardia 7. Encounter for palliative care Electronically signed by Rachel Sorenson 10/13/22 11:56 EDT Patient seen, personally examined. Reviewed and discussed assessment and plan with nurse practitioner Rachel Day CNP-MOL[employer]PER. I agree with the progress notes written. Electronically signed by Augusto ROPER, Kei Veloz 10/13/22 14:56 EDT Normal [facility] Neurology Progress Noteon Neurology Progress Note Subjective Abnormal monoclonal: We will talk about possible clinical half-way where that is here are neurodiagnostic studies including brain MRI/MRA are negative for any acute event EEG is negative for seizure activity. Her decline in function is related to medication and schizophrenia. She did eat some yesterday. does feel that with her schizophrenia which is basically a terminal illness which has not responded to treatment, it is appropriate to pursue hospice. Neurology concurs Review of Systems Constitutional: [No fevers, chills, sweats] Eye: [No recent visual problems] ENMT: [No ear pain, nasal congestion, sore throat] Respiratory: [No shortness of breath, cough] Cardiovascular: [No Chest pain, palpitations, syncope] Gastrointestinal: [No nausea, vomiting, diarrhea] Genitourinary: [No hematuria] Objective Vitals & Measurements T: 36.1 ?C (Axillary) HR: 57 (Monitored) RR: 16 BP: 110/60 SpO2: 98% HT: 165 cm WT: 70.4 kg BMI: 26.08 Additional Vitals No qualifying data available. Lab Results Test Name Test Result Date/Time WBC 6.5 x10 Hgb 10.6 g/dL (Low) 10/13/2022 07:12 EDT Hct 31.7 % (Low) 10/13/2022 07:12 EDT Platelet 216 x10 Sodium Lvl 141 mmol/L 10/13/2022 07:12 EDT Potassium Lvl 4.1 mmol/L 10/13/2022 07:12 EDT Chloride 108 mmol/L 10/13/2022 07:12 EDT CO2 27 mmol/L 10/13/2022 07:12 EDT Glucose Lvl 114 mg/dL (High) 10/13/2022 07:12 EDT BUN 10 mg/dL 10/13/2022 07:12 EDT Creatinine Lvl 1.11 mg/dL (High) 10/13/2022 07:12 EDT Microbiology - Current Encounter Culture Urine: POS Critical (10/09/22) Diagnostic Results Magnetic Resonance Imaging MRI Brain and MRA Head w/o Contrast 10/10/22 16:51:21 IMPRESSION: Motion degraded examination. No findings of acute intracranial infarct Signed By: Zachery Quintanilla MD Physical Exam Awake minimal speech cranial nerves II through XII are symmetric motor strength is antigravity oriented to person only wearing O2 follows some commands poor endurance Medications Inpatient acetaminophen, 650 mg, Oral, q6hr, PRN acetaminophen, 650 mg, Oral, q6hr, PRN Ativan, 1 mg= 0.5 mL, IV Push, [id number] Times, PRN Benadryl, 25 mg, Oral, q6hr, PRN D5W w/K20 1,000 mL, 1000 mL, IV docusate sodium, 100 mg, Oral, BID levothyroxine, 50 mcg, Oral, Daily Lovenox, 80 mg= 0.8 mL, 1 mg/kg, Subcutaneous, q12hr nitroglycerin, 0.4 mg, SL, q5min, PRN Normal Saline Flush 0.9% injectable solution, 10 mL, IV Push, As Indicated, PRN Normal Saline Flush 0.9% injectable solution, 10 mL, IV Push, BID ondansetron, 4 mg= 2 mL, IV Push, q4hr, PRN polyethylene glycol 3350, 17 g= 1 EA, Oral, Daily, PRN Assessment/Plan 1. Hypernatremia 2. Schizophrenia 3. Hypothermia 4. Metabolic encephalopathy Relatively stable. Refractory schizophrenia. would prefer hospice and [place] 5. Chronic anticoagulation 6. Bradycardia 7. Encounter for palliative care Electronically signed by Cody Schulz MD 10/13/22 09:49 EDT Normal [facility] Progress Note-Nurseon 2022 Progress Note-Nurse report called to recieving facility. Electronically signed by Janell Patrick 10/13/22 15:54 EDT Normal [facility] Renal Panelon 10-13-2022 Albumin [Mass/Vol] 3.3 g/dL Normal 3.2-4.9 [facility] Comment on above: Performed By: #### [employer] #### [address] [place] [address] Anion gap [Moles/Vol] 10 mmol/L Normal 7-17 [facility] Comment on above: Performed By: #### [employer] #### [address] [place] [address] Calcium [Mass/Vol] 9.4 mg/dL Normal 8.5-10.3 [facility] Comment on above: Performed By: #### [employer] #### [address] [place] [address] Chloride [Moles/Vol] 108 mmol/L Normal 98-110 [facility] Comment on above: Performed By: #### [employer] #### [address] [place] [address] CO2 [Moles/Vol] 27 mmol/L Normal 22-32 [facility] Comment on above: Performed By: #### [employer] #### [address] [place] [address] Creatinine [Mass/Vol] 1.11 mg/dL High 0.44-1.03 [facility] Comment on above: Performed By: #### [employer] #### [address] [place] [address] Glucose [Mass/Vol] 114 mg/dL High 70-99 [facility] Comment on above: Performed By: #### [employer] #### [address] [place] [address] Phosphate [Mass/Vol] 2.4 mg/dL Low 2.5-4.6 [facility] Comment on above: Performed By: #### [employer] #### [address] [address] Potassium [Moles/Vol] 4.1 mmol/L Normal 3.4-4.8 [facility] Comment on above: Performed By: #### [employer] #### [address] [address] Sodium [Moles/Vol] 141 mmol/L Normal 133-142 [facility] Comment on above: Performed By: #### [employer] #### [address] [address] Urea nitrogen [Mass/Vol] 10 mg/dL Normal 8-26 [facility] Comment on above: Performed By: #### [employer] #### [address] [address] Urea nitrogen/Creatinine [Ma ss ratio] 9.0 mg/mg Low 10.0-20.0 [facility] Comment on above: Performed By: #### [employer] #### [address] [address] .eGFRon 10-12-2022 Estimated GFR 50 mL/min/1.73m? Low >=60 [facility] Comment on above: Result Comment: [facility] have implemented the eGFR calculation approach that does not have a coefficient for race and that conforms to the NKF-ASN Task Force Recommendations. Stages of Chronic Kidney Disease GFR Stage 3a Mild to moderate loss of kidney function 59 to 45 Stage 3b Moderate to severe loss of kidney function 44 to 33 Stage 4 Severe loss of kidney function 29 to 15 Stage 5 Kidney failure Less than 15 GFR calculated using the CKD-Epi Creatinine Equation (2020): eGFR = 142 X min(SCr/?, 1)? X max(SCr /?, 1)-1.200 X 0.9938Age X 1.012 [if female] Abbreviations/Units: eGFR (estimated glomerular filtration rate) = mL/min/1.73 m2 SCr (standardized serum creatinine) = mg/dL ? = 0.7 (females) or 0.9 (males) ? = -0.241 (females) or -0.302 (males) min = indicates the minimum of SCr/? or 1 max = indicates the maximum of SCr/? or 1 Age = years Performed By: #### E GFR ####[address] [address] Basic Metabolic Profileon Anion gap [Moles/Vol] 9 mmol/L Normal 7-17 [facility] Comment on above: Performed By: #### C [id number] #### [address] [address] Calcium [Mass/Vol] 9.2 mg/dL Normal 8.5-10.3 [facility] Comment on above: Performed By: #### C [id number] #### [address] [address] Chloride [Moles/Vol] 111 mmol/L High 98-110 [facility] Comment on above: Performed By: #### C [id number] #### [address] [address] CO2 [Moles/Vol] 29 mmol/L Normal 22-32 [facility] Comment on above: Performed By: #### C [id number] #### [address] [address] Creatinine [Mass/Vol] 1.19 mg/dL High 0.44-1.03 [facility] Comment on above: Performed By: #### C [id number] #### [address] [address] Glucose [Mass/Vol] 109 mg/dL High 70-99 [facility] Comment on above: Performed By: #### C [id number] #### [address] [address] Potassium [Moles/Vol] 4.2 mmol/L Normal 3.4-4.8 [facility] Comment on above: Performed By: #### C [id number] #### [facility] [address] [place] [address] Sodium [Moles/Vol] 145 mmol/L High 133-142 [facility] Comment on above: Performed By: #### C [id number] #### [facility] [address] [place] [address] Urea nitrogen [Mass/Vol] 16 mg/dL Normal 8-26 [facility] Comment on above: Performed By: #### C [id number] #### [facility] [address] [place] [address] Urea nitrogen/Creatinine [Ma ss ratio] 13.4 mg/mg Normal 10.0-20.0 [facility] Comment on above: Performed By: #### C [id number] #### [address] [address] Nephrology Progress Noteon 0 10-12-2022 Nephrology Progress Note Subjective at bedside. Palliative care is on, her code status is DNR-CC comfort care. Dr Casas discuss prognosis with , at this time, he wants her to be comfortable and does not want feeding tube. Her intake remains poor. One-on-one sitter at bedside. On hypotonic IV fluids with D5W +20 mEq of KCl. I/O 1165/2750. Evaluated by both neurologist and behavioral health, agree with recommendation for comfort care. Serum sodium today 145. Review of Systems As above, all other systems have been reviewed and are negative for complaint. Objective Vitals & Measurements T: 36.5 ?C (Temporal Artery) HR: 56 (Monitored) RR: 16 BP: 124/71 SpO2: 95% HT: 165 cm WT: 74.9 kg BMI: 26.08 Additional Vitals No qualifying data available. Lab Results Microbiology - Current Encounter Culture Urine: POS Critical (10/09/22) Labs (Last four charted values) WBC 7.6 (OCTOBER 10) 5.8 (OCTOBER 09) Hgb L 10.0 (OCTOBER 10) L 9.7 (OCTOBER 09) Hct L 30.2 (OCTOBER 10) L 29.2 (OCTOBER 09) Plt 211 (OCTOBER 10) 187 (OCTOBER 09) Na H 145 (OCTOBER 12) H 146 (OCTOBER 10) H 148 (OCTOBER 10) H 148 (OCTOBER 10) K 4.2 (OCTOBER 12) 3.4 (OCTOBER 10) 3.6 (OCTOBER 10) 3.6 (OCTOBER 10) CO2 29 (OCTOBER 12) 28 (OCTOBER 10) 28 (OCTOBER 10) 29 (OCTOBER 10) Cl H 111 (OCTOBER 12) H 113 (OCTOBER 10) H 113 (OCTOBER 10) H 114 (OCTOBER 10) Cr H 1.19 (OCTOBER 12) H 1.20 (OCTOBER 10) H 1.24 (OCTOBER 10) H 1.25 (OCTOBER 10) BUN 16 (OCTOBER 12) 26 (OCTOBER 10) 26 (OCTOBER 10) H 27 (OCTOBER 10) Mg 2.2 (OCTOBER 10) L 1.5 (OCTOBER 09) Phos L 2.4 (OCTOBER 10) 2.8 (OCTOBER 09) PT 11.5 (OCTOBER 09) INR 1.1 (OCTOBER 09) PTT 29.1 (OCTOBER 09) Diagnostic Results Diagnostic Radiology XR Chest 1 View 10/10/22 03:39:21 IMPRESSION: Esophagogastric tube tip remains at the mid gastric body region. Signed By: Ryan Bess DO Magnetic Resonance Imaging MRI Brain and MRA Head w/o Contrast 10/10/22 16:51:21 IMPRESSION: Motion degraded examination. No findings of acute intracranial infarct Signed By: Zachery Quintanilla MD Physical Exam Constitutional: obtunded, noncommunicative, no acute distress ENT: Normocephalic, mouth breathing, dry oral mucosa Neck: Supple, non-tender, no lymphadenopathy, trachea midline Lungs: diminished bases, room air with o2 sat 97% CV: Normal rate, regular rhythm Abdomen: Soft, round, normal bowel sounds. Musculoskeletal: minimal movement Skin: Skin is warm, dry and pale, multiple healing bruises on legs, arms and trunk Neurologic: Minimal response to painful stimuli, opened eyes with abd palpation, no communicative, did not follow directions Ellison cath intact with yellow urine Medications Inpatient Ativan, 1 mg= 0.5 mL, IV Push, [id number] Times, PRN Benadryl, 25 mg, Oral, q6hr, PRN D5W w/K20 1,000 mL, 1000 mL, IV docusate sodium, 100 mg, Oral, BID levothyroxine, 50 mcg, Oral, Daily Lovenox, 80 mg= 0.8 mL, 1 mg/kg, Subcutaneous, q12hr nitroglycerin, 0.4 mg, SL, q5min, PRN ondansetron, 4 mg= 2 mL, IV Push, q4hr, PRN polyethylene glycol 3350, 17 g= 1 EA, Oral, Daily, PRN Assessment/Plan 1. Hypernatremia Patient with known catatonic schizophrenia/TD admitted with AMS, hypernatremia due to free water losses and prerenal MILAGRO. Initially managed with Isotonic IVF at outside facility without improvements. Serum sodium range 150-156 mmol/L. Calculated free water deficits 2.75L. She has chronic hypernatremia with appropriate rate of correction on hypotonic IV fluid replacement. DNR CC status with comfort measures. She has minimal intake with poor prognosis, at this time the states no feeding tube, but no plan for hospice noted. Will continue with IVF at this time. Patient was transferred from [place] for hypernatremia, AMS, hypotension, hypothermia, UTI and multiple electrolyte imbalances. Sodium level on 10/04/22 was elevated at 150. Admission to [place] ER her sodium was 158 at 13:25. Subsequent sodium levels: 10/08 at 18:23-152, 22:00-155, 10/09 at 02:00- 154, 04:00- 156, 06:00- 156. Hypomagnesemia improved with IV magnesium sulfate. Hypophosphatemia due to poor nutrition. Neurology and behavioral health recommendations noted 2. Schizophrenia 3. Hypothermia 4. Metabolic encephalopathy 5. Chronic anticoagulation 6. Bradycardia 7. Encounter for palliative care Electronically signed by Rachel Sorenson 10/12/22 11:13 EDT Patient seen, personally examined. Thoroughly reviewed and discussed assessment and plan with nurse practitioner Rachel Day CNP, APRN. I agree with the progress notes written. Electronically signed by Augusto ROPER, Kei Roselia 10/12/22 11:21 EDT Normal [facility] Neurology Progress Noteon Neurology Progress Note Subjective A little more awake being fed yogurt by assistants follow some one-step commands no comprehensible language Review of Systems Constitutional: [No fevers, chills, sweats] Eye: [No recent visual problems] ENMT: [No ear pain, nasal congestion, sore throat] Respiratory: [No shortness of breath, cough] Cardiovascular: [No Chest pain, palpitations, syncope] Gastrointestinal: [No nausea, vomiting, diarrhea] Genitourinary: [No hematuria] Objective Vitals & Measurements T: 36.5 ?C (Temporal Artery) HR: 88 (Monitored) RR: 18 BP: 138/71 SpO2: 95% HT: 165 cm WT: 74.9 kg BMI: 26.08 Additional Vitals No qualifying data available. Lab Results Test Name Test Result Date/Time Sodium Lvl 145 mmol/L (High) 10/12/2022 05:23 EDT Potassium Lvl 4.2 mmol/L 10/12/2022 05:23 EDT Chloride 111 mmol/L (High) 10/12/2022 05:23 EDT CO2 29 mmol/L 10/12/2022 05:23 EDT Glucose Lvl 109 mg/dL (High) 10/12/2022 05:23 EDT BUN 16 mg/dL 10/12/2022 05:23 EDT Creatinine Lvl 1.19 mg/dL (High) 10/12/2022 05:23 EDT Microbiology - Current Encounter Culture Urine: POS Critical (10/09/22) Diagnostic Results Diagnostic Radiology XR Chest 1 View 10/10/22 03:39:21 IMPRESSION: Esophagogastric tube tip remains at the mid gastric body region. Signed By: Ryan Bess DO Magnetic Resonance Imaging MRI Brain and MRA Head w/o Contrast 10/10/22 16:51:21 IMPRESSION: Motion degraded examination. No findings of acute intracranial infarct Signed By: Zachery Quintanilla MD Physical Exam Awake in bed eating with assistance cranial nerves II through XII are symmetric motor exam is antigravity no full conversation Medications Inpatient acetaminophen, 650 mg, Oral, q6hr, PRN acetaminophen, 650 mg, Oral, q6hr, PRN Ativan, 1 mg= 0.5 mL, IV Push, [id number] Times, PRN Benadryl, 25 mg, Oral, q6hr, PRN D5W w/K20 1,000 mL, 1000 mL, IV docusate sodium, 100 mg, Oral, BID levothyroxine, 50 mcg, Oral, Daily Lovenox, 80 mg= 0.8 mL, 1 mg/kg, Subcutaneous, q12hr nitroglycerin, 0.4 mg, SL, q5min, PRN Normal Saline Flush 0.9% injectable solution, 10 mL, IV Push, As Indicated, PRN Normal Saline Flush 0.9% injectable solution, 10 mL, IV Push, BID ondansetron, 4 mg= 2 mL, IV Push, q4hr, PRN polyethylene glycol 3350, 17 g= 1 EA, Oral, Daily, PRN Assessment/Plan 1. Hypernatremia Improved 2. Schizophrenia 3. Hypothermia 4. Metabolic encephalopathy Suspect secondary to her psychotic disorder. Continue current treatment 5. Chronic anticoagulation 6. Bradycardia 7. Encounter for palliative care Electronically signed by Cody Schulz MD 10/12/22 14:21 EDT Normal [facility] C Urineon 10-11-2022 C Urine Order added by Discern rule. Final 50-100,000 cfu/ml Enterococcus faecalis isolated ORGANISM [employer] SUSCEPTIBILITY ORGANISM ID: 1 ANTIBIOTIC INTERPRETATION TIMOTHY STATUS POS Enterococcus faecalis Ampicillin S <=2 V Ciprofloxacin R >=8 V Daptomycin S 4 V Gentamicin synergy R Syn-R V Levofloxacin R >=8 V Nitrofurantoin S <=16 V Streptomycin synergy R Syn-R V Tetracycline R >=16 V Vancomycin S 1 V Normal [facility] Comment on above: Performed By: #### U ####[facility] (DEFAULT)[address] [place], [place] [address]PQNBZVTAT[facility] [place] [address] Nephrology Progress Noteon 0 10-11-2022 Nephrology Progress Note Subjective Events noted. Patient remains obtunded. One-on-one sitter at bedside. On hypotonic IV fluids with D5W +20 mEq of KCl. Urine output continues to improve 1100 cc recorded in Ellison bag. Evaluated by both neurologist and behavioral health, comfort measures recommended. No follow-up labs drawn today Review of Systems As above Objective Vitals & Measurements T: 36.2 ?C (Axillary) HR: 54 (Peripheral) RR: 12 BP: 100/60 SpO2: 100% HT: 165 cm WT: 72.5 kg BMI: 26.08 Additional Vitals No qualifying data available. Lab Results Microbiology - Current Encounter Culture Urine: POS Critical (10/09/22) Labs (Last four charted values) WBC 7.6 (OCTOBER 10) 5.8 (OCTOBER 09) Hgb L 10.0 (OCTOBER 10) L 9.7 (OCTOBER 09) Hct L 30.2 (OCTOBER 10) L 29.2 (OCTOBER 09) Plt 211 (OCTOBER 10) 187 (OCTOBER 09) Na H 146 (OCTOBER 10) H 148 (OCTOBER 10) H 148 (OCTOBER 10) H 148 (OCTOBER 10) K 3.4 (OCTOBER 10) 3.6 (OCTOBER 10) 3.6 (OCTOBER 10) 3.6 (OCTOBER 10) CO2 28 (OCTOBER 10) 28 (OCTOBER 10) 29 (OCTOBER 10) 28 (OCTOBER 10) Cl H 113 (OCTOBER 10) H 113 (OCTOBER 10) H 114 (OCTOBER 10) H 112 (OCTOBER 10) Cr H 1.20 (OCTOBER 10) H 1.24 (OCTOBER 10) H 1.25 (OCTOBER 10) H 1.46 (OCTOBER 10) BUN 26 (OCTOBER 10) 26 (OCTOBER 10) H 27 (OCTOBER 10) 26 (OCTOBER 10) Mg 2.2 (OCTOBER 10) L 1.5 (OCTOBER 09) Phos L 2.4 (OCTOBER 10) 2.8 (OCTOBER 09) PT 11.5 (OCTOBER 09) INR 1.1 (OCTOBER 09) PTT 29.1 (OCTOBER 09) Diagnostic Results Diagnostic Radiology XR Chest 1 View 10/10/22 03:39:21 IMPRESSION: Esophagogastric tube tip remains at the mid gastric body region. Signed By: Ryan Bess DO Magnetic Resonance Imaging MRI Brain and MRA Head w/o Contrast 10/10/22 16:51:21 IMPRESSION: Motion degraded examination. No findings of acute intracranial infarct Signed By: Zachery Quintanilla MD Physical Exam Constitutional: obtunded, noncommunicative, no acute distress ENT: Normocephalic, mouth breathing, dry oral mucosa Neck: Supple, non-tender, no lymphadenopathy, trachea midline Lungs: diminished bases, room air with o2 sat 97% CV: Normal rate, regular rhythm Abdomen: Soft, round, normal bowel sounds. Musculoskeletal: minimal movement Skin: Skin is warm, dry and pale, multiple healing bruises on legs, arms and trunk Neurologic: Minimal response to painful stimuli, opened eyes with abd palpation, no communicative, did not follow directions Ellison cath intact with yellow urine Medications Inpatient acetaminophen, 650 mg, Oral, q6hr, PRN acetaminophen, 650 mg, Oral, q6hr, PRN Ativan, 1 mg= 0.5 mL, IV Push, [id number] Times, PRN Benadryl, 25 mg, Oral, q6hr, PRN Cipro, 400 mg= 200 mL, IV Piggyback, q12hr D5W w/K20 1,000 mL, 1000 mL, IV docusate sodium, 100 mg, Oral, BID Eliquis, 5 mg, Oral, BID levothyroxine, 50 mcg, Oral, Daily Lovenox, 80 mg= 0.8 mL, 1 mg/kg, Subcutaneous, q12hr nitroglycerin, 0.4 mg, SL, q5min, PRN Normal Saline Flush 0.9% injectable solution, 10 mL, IV Push, As Indicated, PRN Normal Saline Flush 0.9% injectable solution, 10 mL, IV Push, BID ondansetron, 4 mg= 2 mL, IV Push, q4hr, PRN polyethylene glycol 3350, 17 g= 1 EA, Oral, Daily, PRN Assessment/Plan 1. Hypernatremia Patient with known catatonic schizophrenia/TD admitted with AMS, hypernatremia due to free water losses and prerenal MILAGRO. Initially managed with Isotonic IVF at outside facility without improvements. Serum sodium range 150-156 mmol/L. Calculated free water deficits 2.75L. She has chronic hypernatremia with appropriate rate of correction on hypotonic IV fluid replacement. No labs drawn due to DNR CC status with comfort measures only Patient was transferred from [place] for hypernatremia, AMS, hypotension, hypothermia, UTI and multiple electrolyte imbalances. Sodium level on 10/04/22 was elevated at 150. Admission to [place] ER her sodium was 158 at 13:25. Subsequent sodium levels: 10/08 at 18:23-152, 22:00-155, 10/09 at 02:00- 154, 04:00- 156, 06:00- 156. Hypomagnesemia improved with IV magnesium sulfate. Hypophosphatemia due to poor nutrition. Received K-Phos 30 mmol in hypotonic solution. Neurology and behavioral health recommendations noted We will sign off 2. Schizophrenia 3. Hypothermia 4. Metabolic encephalopathy 5. Chronic anticoagulation 6. Bradycardia 7. Encounter for palliative care Electronically signed by Kei Casas MD 10/11/22 11:57 EDT Normal [facility] Neurology Progress Noteon Neurology Progress Note Subjective Patient does remain intermittently lethargic was able to eat a little today diagnostic studies neurologically been fairly unimpressive brain MRI and MRA had motion artifact but there was no acute infarct she had mild leukomalacia MRA showed no intracranial stenosis and her EEG only showed mild slowing with no seizure activity. P.o. intake has been poor Review of Systems Constitutional: [No fevers, chills, sweats] Eye: [No recent visual problems] ENMT: [No ear pain, nasal congestion, sore throat] Respiratory: [No shortness of breath, cough] Cardiovascular: [No Chest pain, palpitations, syncope] Gastrointestinal: [No nausea, vomiting, diarrhea] Genitourinary: [No hematuria] Objective Vitals & Measurements T: 36.2 ?C (Axillary) HR: 70 (Peripheral) RR: 12 BP: 113/64 SpO2: 99% HT: 165 cm WT: 72.5 kg BMI: 26.08 Additional Vitals No qualifying data available. Lab Results Test Name Test Result Date/Time Sodium Lvl 146 mmol/L (High) 10/10/2022 06:33 EDT Potassium Lvl 3.4 mmol/L 10/10/2022 06:33 EDT Chloride 113 mmol/L (High) 10/10/2022 06:33 EDT CO2 28 mmol/L 10/10/2022 06:33 EDT Glucose Lvl 112 mg/dL (High) 10/10/2022 06:33 EDT BUN 26 mg/dL 10/10/2022 06:33 EDT Creatinine Lvl 1.20 mg/dL (High) 10/10/2022 06:33 EDT Microbiology - Current Encounter Culture Urine: POS Critical (10/09/22) Diagnostic Results Diagnostic Radiology XR Chest 1 View 10/10/22 03:39:21 IMPRESSION: Esophagogastric tube tip remains at the mid gastric body region. Signed By: Ryan Bess DO Magnetic Resonance Imaging MRI Brain and MRA Head w/o Contrast 10/10/22 16:51:21 IMPRESSION: Motion degraded examination. No findings of acute intracranial infarct Signed By: Zachery Quintanilla MD Physical Exam Drowsy weakly overweight pupils react neck supple moves all extremities no posturing Medications Inpatient acetaminophen, 650 mg, Oral, q6hr, PRN acetaminophen, 650 mg, Oral, q6hr, PRN Ativan, 1 mg= 0.5 mL, IV Push, [id number] Times, PRN Benadryl, 25 mg, Oral, q6hr, PRN D5W w/K20 1,000 mL, 1000 mL, IV docusate sodium, 100 mg, Oral, BID levothyroxine, 50 mcg, Oral, Daily Lovenox, 80 mg= 0.8 mL, 1 mg/kg, Subcutaneous, q12hr nitroglycerin, 0.4 mg, SL, q5min, PRN Normal Saline Flush 0.9% injectable solution, 10 mL, IV Push, As Indicated, PRN Normal Saline Flush 0.9% injectable solution, 10 mL, IV Push, BID ondansetron, 4 mg= 2 mL, IV Push, q4hr, PRN polyethylene glycol 3350, 17 g= 1 EA, Oral, Daily, PRN Assessment/Plan 1. Hypernatremia 2. Schizophrenia Longstanding history of mental illness admitted with metabolic encephalopathy hyponatremia work-up negative for acute stroke or seizure activity supportive care for now check metabolic profile in the morning 3. Hypothermia 4. Metabolic encephalopathy 5. Chronic anticoagulation 6. Bradycardia 7. Encounter for palliative care Orders: Basic Metabolic Profile Electronically signed by Cody Schulz MD 10/11/22 19:25 EDT Normal [facility] .eGFRon 10-10-2022 Estimated GFR 50 mL/min/1.73m? Low >=60 [facility] Comment on above: Result Comment: [facility] have implemented the eGFR calculation approach that does not have a coefficient for race and that conforms to the NKF-ASN Task Force Recommendations. Stages of Chronic Kidney Disease GFR Stage 3a Mild to moderate loss of kidney function 59 to 45 Stage 3b Moderate to severe loss of kidney function 44 to 33 Stage 4 Severe loss of kidney function 29 to 15 Stage 5 Kidney failure Less than 15 GFR calculated using the CKD-Epi Creatinine Equation (2020): eGFR = 142 X min(SCr/?, 1)? X max(SCr /?, 1)-1.200 X 0.9938Age X 1.012 [if female] Abbreviations/Units: eGFR (estimated glomerular filtration rate) = mL/min/1.73 m2 SCr (standardized serum creatinine) = mg/dL ? = 0.7 (females) or 0.9 (males) ? = -0.241 (females) or -0.302 (males) min = indicates the minimum of SCr/? or 1 max = indicates the maximum of SCr/? or 1 Age = years Performed By: #### C [id number] #### [facility] [address] [place] [address] Estimated GFR 48 mL/min/1.73m? Low >=60 [facility] Comment on above: Result Comment: [facility] have implemented the eGFR calculation approach that does not have a coefficient for race and that conforms to the NKF-ASN Task Force Recommendations. Stages of Chronic Kidney Disease GFR Stage 3a Mild to moderate loss of kidney function 59 to 45 Stage 3b Moderate to severe loss of kidney function 44 to 33 Stage 4 Severe loss of kidney function 29 to 15 Stage 5 Kidney failure Less than 15 GFR calculated using the CKD-Epi Creatinine Equation (2020): eGFR = 142 X min(SCr/?, 1)? X max(SCr /?, 1)-1.200 X 0.9938Age X 1.012 [if female] Abbreviations/Units: eGFR (estimated glomerular filtration rate) = mL/min/1.73 m2 SCr (standardized serum creatinine) = mg/dL ? = 0.7 (females) or 0.9 (males) ? = -0.241 (females) or -0.302 (males) min = indicates the minimum of SCr/? or 1 max = indicates the maximum of SCr/? or 1 Age = years Performed By: #### C [id number] #### [place] [address] Estimated GFR 47 mL/min/1.73m? Low >=60 [facility] Comment on above: Result Comment: [facility] have implemented the eGFR calculation approach that does not have a coefficient for race and that conforms to the NKF-ASN Task Force Recommendations. Stages of Chronic Kidney Disease GFR Stage 3a Mild to moderate loss of kidney function 59 to 45 Stage 3b Moderate to severe loss of kidney function 44 to 33 Stage 4 Severe loss of kidney function 29 to 15 Stage 5 Kidney failure Less than 15 GFR calculated using the CKD-Epi Creatinine Equation (2020): eGFR = 142 X min(SCr/?, 1)? X max(SCr /?, 1)-1.200 X 0.9938Age X 1.012 [if female] Abbreviations/Units: eGFR (estimated glomerular filtration rate) = mL/min/1.73 m2 SCr (standardized serum creatinine) = mg/dL ? = 0.7 (females) or 0.9 (males) ? = -0.241 (females) or -0.302 (males) min = indicates the minimum of SCr/? or 1 max = indicates the maximum of SCr/? or 1 Age = years Performed By: #### C OMP #### [address] [address] Estimated GFR 39 mL/min/1.73m? Low >=60 [facility] Comment on above: Result Comment: [facility] have implemented the eGFR calculation approach that does not have a coefficient for race and that conforms to the NKF-ASN Task Force Recommendations. Stages of Chronic Kidney Disease GFR Stage 3a Mild to moderate loss of kidney function 59 to 45 Stage 3b Moderate to severe loss of kidney function 44 to 33 Stage 4 Severe loss of kidney function 29 to 15 Stage 5 Kidney failure Less than 15 GFR calculated using the CKD-Epi Creatinine Equation (2020): eGFR = 142 X min(SCr/?, 1)? X max(SCr /?, 1)-1.200 X 0.9938Age X 1.012 [if female] Abbreviations/Units: eGFR (estimated glomerular filtration rate) = mL/min/1.73 m2 SCr (standardized serum creatinine) = mg/dL ? = 0.7 (females) or 0.9 (males) ? = -0.241 (females) or -0.302 (males) min = indicates the minimum of SCr/? or 1 max = indicates the maximum of SCr/? or 1 Age = years Performed By: #### C OMP #### [address] [address] Estimated GFR 45 mL/min/1.73m? Low >=60 [facility] Comment on above: Result Comment: [facility] have implemented the eGFR calculation approach that does not have a coefficient for race and that conforms to the NKF-ASN Task Force Recommendations. Stages of Chronic Kidney Disease GFR Stage 3a Mild to moderate loss of kidney function 59 to 45 Stage 3b Moderate to severe loss of kidney function 44 to 33 Stage 4 Severe loss of kidney function 29 to 15 Stage 5 Kidney failure Less than 15 GFR calculated using the CKD-Epi Creatinine Equation (2020): eGFR = 142 X min(SCr/?, 1)? X max(SCr /?, 1)-1.200 X 0.9938Age X 1.012 [if female] Abbreviations/Units: eGFR (estimated glomerular filtration rate) = mL/min/1.73 m2 SCr (standardized serum creatinine) = mg/dL ? = 0.7 (females) or 0.9 (males) ? = -0.241 (females) or -0.302 (males) min = indicates the minimum of SCr/? or 1 max = indicates the maximum of SCr/? or 1 Age = years Performed By: #### C [id number] #### [address] [address] B12/Folate Lvlon 10-10-2022 Cobalamin (Vitamin B12) [Mass/Vol] 793 pg/mL Normal 180-914 [facility] Comment on above: Performed By: #### B [employer] #### [address] [address] Folate Lvl 10.3 ng/mL Normal >=5.9 [facility] Comment on above: Result Comment: A WH O Technical Consultation has determined that deficient Folate concentrations are considered to be less than 4 ng/mL. Performed By: #### B [employer] #### [address] [address] Basic Metabolic Profileon Anion gap [Moles/Vol] 8 mmol/L Normal 7-17 [facility] Comment on above: Order Comment: until sodium normalized Performed By: #### C [id number] #### [address] [address] Calcium [Mass/Vol] 8.8 mg/dL Normal 8.5-10.3 [facility] Comment on above: Order Comment: until sodium normalized Performed By: #### C [id number] #### [address] [address] Chloride [Moles/Vol] 113 mmol/L High 98-110 [facility] Comment on above: Order Comment: until sodium normalized Performed By: #### C [id number] #### [address] [address] CO2 [Moles/Vol] 28 mmol/L Normal 22-32 [facility] Comment on above: Order Comment: until sodium normalized Performed By: #### C [id number] #### [address] [address] Creatinine [Mass/Vol] 1.20 mg/dL High 0.44-1.03 [facility] Comment on above: Order Comment: until sodium normalized Performed By: #### C [id number] #### [address] [address] Glucose [Mass/Vol] 112 mg/dL High 70-99 [facility] Comment on above: Order Comment: until sodium normalized Performed By: #### C [id number] #### [address] [address] Potassium [Moles/Vol] 3.4 mmol/L Normal 3.4-4.8 [facility] Comment on above: Order Comment: until sodium normalized Performed By: #### C [id number] #### [address] [address] Sodium [Moles/Vol] 146 mmol/L High 133-142 [facility] Comment on above: Order Comment: until sodium normalized Performed By: #### C [id number] #### [address] [address] Urea nitrogen [Mass/Vol] 26 mg/dL Normal 8-26 [facility] Comment on above: Order Comment: until sodium normalized Performed By: #### C [id number] #### [address] [address] Urea nitrogen/Creatinine [Ma ss ratio] 21.7 mg/mg High 10.0-20.0 [facility] Comment on above: Order Comment: until sodium normalized Performed By: #### C [id number] #### [address] [address] Anion gap [Moles/Vol] 9 mmol/L Normal 7-17 [facility] Comment on above: Order Comment: until sodium normalized Performed By: #### C OMP #### [address] [place] [address] Calcium [Mass/Vol] 9.1 mg/dL Normal 8.5-10.3 [facility] Comment on above: Order Comment: until sodium normalized Performed By: #### C OMP #### [address] [address] Chloride [Moles/Vol] 114 mmol/L High 98-110 [facility] Comment on above: Order Comment: until sodium normalized Performed By: #### C OMP #### [address] [address] CO2 [Moles/Vol] 29 mmol/L Normal 22-32 [facility] Comment on above: Order Comment: until sodium normalized Performed By: #### C OMP #### [address] [address] Creatinine [Mass/Vol] 1.25 mg/dL High 0.44-1.03 [facility] Comment on above: Order Comment: until sodium normalized Performed By: #### C OMP #### [address] [address] Glucose [Mass/Vol] 101 mg/dL High 70-99 [facility] Comment on above: Order Comment: until sodium normalized Performed By: #### C OMP #### [address] [address] Potassium [Moles/Vol] 3.6 mmol/L Normal 3.4-4.8 [facility] Comment on above: Order Comment: until sodium normalized Performed By: #### C OMP #### [address] [address] Sodium [Moles/Vol] 148 mmol/L High 133-142 [facility] Comment on above: Order Comment: until sodium normalized Performed By: #### C OMP #### [address] [address] Urea nitrogen [Mass/Vol] 27 mg/dL High 8-26 [facility] Comment on above: Order Comment: until sodium normalized Performed By: #### C OMP #### [address] [address] Urea nitrogen/Creatinine [Ma ss ratio] 21.6 mg/mg High 10.0-20.0 [facility] Comment on above: Order Comment: until sodium normalized Performed By: #### C OMP #### [address] [address] Anion gap [Moles/Vol] 12 mmol/L Normal 7-17 [facility] Comment on above: Order Comment: until sodium normalized Performed By: #### C [id number] #### [address] [address] Calcium [Mass/Vol] 9.0 mg/dL Normal 8.5-10.3 [facility] Comment on above: Order Comment: until sodium normalized Performed By: #### C [id number] #### [address] [address] Chloride [Moles/Vol] 112 mmol/L High 98-110 [facility] Comment on above: Order Comment: until sodium normalized Performed By: #### C [id number] #### [address] [address] CO2 [Moles/Vol] 28 mmol/L Normal 22-32 [facility] Comment on above: Order Comment: until sodium normalized Performed By: #### C [id number] #### [address] [address] Creatinine [Mass/Vol] 1.46 mg/dL High 0.44-1.03 [facility] Comment on above: Order Comment: until sodium normalized Performed By: #### C [id number] #### [address] [address] Glucose [Mass/Vol] 111 mg/dL High 70-99 [facility] Comment on above: Order Comment: until sodium normalized Performed By: #### C [id number] #### [address] [address] Potassium [Moles/Vol] 3.6 mmol/L Normal 3.4-4.8 [facility] Comment on above: Order Comment: until sodium normalized Performed By: #### C [id number] #### [address] [address] Sodium [Moles/Vol] 148 mmol/L High 133-142 [facility] Comment on above: Order Comment: until sodium normalized Performed By: #### C [id number] #### [address] [address] Urea nitrogen [Mass/Vol] 26 mg/dL Normal 8-26 [facility] Comment on above: Order Comment: until sodium normalized Performed By: #### C [id number] #### [address] [address] Urea nitrogen/Creatinine [Ma ss ratio] 17.8 mg/mg Normal 10.0-20.0 [facility] Comment on above: Order Comment: until sodium normalized Performed By: #### C [id number] #### [address] [address] Anion gap [Moles/Vol] 10 mmol/L Normal 7-17 [facility] Comment on above: Order Comment: until sodium normalized Performed By: #### R ENAL #### [address] [address] Calcium [Mass/Vol] 9.2 mg/dL Normal 8.5-10.3 [facility] Comment on above: Order Comment: until sodium normalized Performed By: #### R ENAL #### [address] [address] Chloride [Moles/Vol] 116 mmol/L High 98-110 [facility] Comment on above: Order Comment: until sodium normalized Performed By: #### R ENAL #### [address] [address] CO2 [Moles/Vol] 29 mmol/L Normal 22-32 [facility] Comment on above: Order Comment: until sodium normalized Performed By: #### R ENAL #### [address] [address] Creatinine [Mass/Vol] 1.29 mg/dL High 0.44-1.03 [facility] Comment on above: Order Comment: until sodium normalized Performed By: #### R ENAL #### [facility] [address] [place] [address] Glucose [Mass/Vol] 105 mg/dL High 70-99 [facility] Comment on above: Order Comment: until sodium normalized Performed By: #### R ENAL #### [address] [address] Potassium [Moles/Vol] 3.7 mmol/L Normal 3.4-4.8 [facility] Comment on above: Order Comment: until sodium normalized Performed By: #### R ENAL #### [address] [address] Sodium [Moles/Vol] 151 mmol/L High 133-142 [facility] Comment on above: Order Comment: until sodium normalized Performed By: #### R ENAL #### [address] [address] Urea nitrogen [Mass/Vol] 28 mg/dL High 8-26 [facility] Comment on above: Order Comment: until sodium normalized Performed By: #### R ENAL #### [address] [address] Urea nitrogen/Creatinine [Ma ss ratio] 21.7 mg/mg High 10.0-20.0 [facility] Comment on above: Order Comment: until sodium normalized Performed By: #### R ENAL #### [address] [address] CBC w/ Diffon 10-10-2022 Erythrocyte distribution wid th (RBC) [Ratio] 16.6 % High 11.6-14.8 [facility] Comment on above: Performed By: #### C BC ####[address] [address] Hematocrit (Bld) [Volume fraction] 30.2 % Low 36.0-46.0 [facility] Comment on above: Performed By: #### C BC ####[place] [id number] Hemoglobin (Bld) [Mass/Vol] 10.0 g/dL Low 12.0-16. 0 [facility] Comment on above: Performed By: #### C BC ####[place] [id number] MCH (RBC) [Entitic mass] 31.2 pg Normal 27.0-35.0 [facility] Comment on above: Performed By: #### C BC ####[place] [address] MCHC 33.0 % Normal 31.0-37.0 [facility] Comment on above: Performed By: #### C BC ####[place] [id number] MCV (RBC) [Entitic vol] 94.6 fL Normal 80.0-100.0 [facility] Comment on above: Performed By: #### C BC ####[place] [id number] Platelet 211 x10*3/mcL Normal 150-350 [facility] Comment on above: Performed By: #### C BC ####[place] [id number] Platelet mean volume (Bld) [Entitic vol] 8.5 fL Normal 6.7-10.6 [facility] Comment on above: Performed By: #### C BC ####[place] [id number] RBC 3.19 x10*6/mcL Low 3.80-5.20 [facility] Comment on above: Performed By: #### C BC ####[place] [id number] WBC 7.6 x10*3/mcL Normal 4.5-11.0 [facility] Comment on above: Performed By: #### C ####[facility] [place] [address] CPKon 10-10-2022 Creatine Phosphokinase 20 IU/L Low 38-234 [facility] Comment on above: Performed By: #### C [id number] #### [facility] [address] [place] [address] Consultation Note - Generico n 10-10-2022 Consultation Note - Generic Chief Complaint change in mentation. transfer from [facility] Reason for Consultation Palliative Care was consulted to discuss complex medical decision making in goals of care. History of Present Illness The patient is a 66-year-old female, past medical history of catatonic schizophrenia, chronic kidney disease stage unknown at this time, anemia, hypothyroid, DVT hypertension, coronary artery disease, A-fib on Eliquis, osteoporosis, with frequent admissions due to worsening confusion and psychosis in a catatonic state, transferred from [facility] after presenting to their emergency department with chief complaint of altered mental status and hypernatremia. All medical history obtained from transfer paperwork and also patient's Freddy over the phone. Patient is currently residing at [facility]. Patient arrived to [facility] emergency department at 1317 on 10/08 from [facility], with initial blood pressure of 195/91, heart rate of 55 with subsequent pulse rates in the 40s, temp of 36.2, 100% on room air. Patient received 400 mg Cipro IV piggyback, was started on 5% dextrose in LR. Initial lab results showed a glucose of 96, creatinine 1.97, GFR 60, sodium of 158, potassium 4.1. Normal hepatic function. UA showing positive nitrites, moderate leukocytes, WBC>100. CT of the head without contrast showed no acute intracranial abnormality. EKG showed sinus bradycardia. According to paperwork and report from [facility], with patient's underlying psychiatric disorders, baseline ranges from appropriate behavior to catatonia. Patient was admitted to [facility] on 09/28 due to worsening confusion and psychosis and in a catatonic state. In assessment dated 09/29, patient is noncommunicative does not cooperate, does not follow commands. Patient is seen in [facility] ICU and arouses to name but no communication. Vitals are stable, however, patient is significantly hypothermic with temperature at 34.0, and is bradycardic in the 40's. On room air, BP is stable. [1] Patient seen in bed in ICU. Spouse had just left for home. He was contacted by phone and informed that he would not be able to return to the hospital until Friday unless there is an emergency. He states if 's condition changes he will come in immediately. She has been unresponsive throughout the day. Arouses with deep stimulation but readily returns to sleep. Not eating or drinking. Spouse tells me he understands if she is not waking to eat, her chance of recovery is poor. He describes repeat episodes of unresponsiveness and somnolence over the last 4 months. Notes first episode occurring the day after [place]. He describes approximately 4 episodes with subsequent admissions to either [facility] or [facility], with this being the worst episode. He is unaware of any events or changes to lead up to the current condition. Prior to May, she was eating, drinking, communicating appropriately, and engaging with others. Review of Systems See HPI. Pertinent positives and negatives as discussed above, otherwise, 10 point ROS is negative Physical Exam Vitals & Measurements T: 36 ?C (Axillary) HR: 58 (Monitored) RR: 12 BP: 119/95 SpO2: 97% WT: 71 kg General: Well developed, elderly female laying in her hospital bed, appears to be resting comfortably, in no acute distress Eye: no periorbital edema, drainage or erythema HENT: Normocephalic, external ears unremarkable, moist oral mucosa, no scleral icterus, nares patent Neck: Supple, non-tender, no carotid bruits, no JVD, no lymphadenopathy, trachea midline Lungs: Clear to auscultation, no wheezing or congestion, non-labored respirations without use of accessory muscles Cardiovascular: Normal rate, regular rhythm, no murmur, gallop or edema. Radial and pedal pulses strong and equal Abdomen: Soft, non-tender, non-distended, normal bowel sounds, no masses Musculoskeletal: No obvious deformity, no purposeful movements, normal passive ROM Integumentary: Skin is warm, dry and pink, no rashes or lesions Neurologic: Somnolent, snoring, not following commands, does pull away from painful stimuli when lab attempted to draw blood Psychiatric: Responsive to loud voice and sternal rub, does not keep eyes open Labs (Last four charted values) WBC 7.6 (OCTOBER 10) 5.8 (OCTOBER 09) Hgb L 10.0 (OCTOBER 10) L 9.7 (OCTOBER 09) Hct L 30.2 (OCTOBER 10) L 29.2 (OCTOBER 09) Plt 211 (OCTOBER 10) 187 (OCTOBER 09) Na H 146 (OCTOBER 10) H 148 (OCTOBER 10) H 148 (OCTOBER 10) H 148 (OCTOBER 10) K 3.4 (OCTOBER 10) 3.6 (OCTOBER 10) 3.6 (OCTOBER 10) 3.6 (OCTOBER 10) CO2 28 (OCTOBER 10) 28 (OCTOBER 10) 29 (OCTOBER 10) 28 (OCTOBER 10) Cl H 113 (OCTOBER 10) H 113 (OCTOBER 10) H 114 (OCTOBER 10) H 112 (OCTOBER 10) Cr H 1.20 (OCTOBER 10) H 1.24 (OCTOBER 10) H 1.25 (OCTOBER 10) H 1.46 (OCTOBER 10) BUN 26 (OCTOBER 10) 26 (OCTOBER 10) H 27 (OCTOBER 10) 26 (OCTOBER 10) Mg 2.2 (OCTOBER 10) L 1.5 (OCTOBER 09) Phos L 2.4 (OCTOBER 10) 2.8 (OCTOBER 09) PT 11.5 (OCTOBER 09) INR 1.1 (OCTOBER 09) PTT 29.1 (OCTOBER 09) Cardiac Enzymes Troponin-I: <0.03 (10/09/22 11:28:00) Imaging XR Chest 1 View 10/10/22 03:39:21 EXAM: XR (more content not included)... Normal [facility] Cortisolon 10-10-2022 Cortisol 3.3 mcg/dL Normal [facility] Comment on above: Result Comment: Norm als: 6.7 - 22.6 mcg/dL in A.M. < 10.0 mcg/dL in P.M. Performed By: #### C OMP #### [facility] [address] [place] [address] Cult,Urineon 10-10-2022 Cult,Urine Specimen Description .URINE Culture ENTEROCOCCUS FAECALIS >[id number] CFU/ML Report Status FINAL 10/10/2022 SUSCEPTIBILITY Organism ENTEROCOCCUS FAECALIS Method TIMOTHY Ampicillin <=2 SUSCEPTIBLE Ciprofloxacin >=8 RESISTANT Levofloxacin >=8 RESISTANT Nitrofurantoin <=16 SUSCEPTIBLE Tetracycline >=16 RESISTANT Vancomycin 1 SUSCEPTIBLE Susceptible [facility] Comment on above: Performed By: #### U #### [facility] [address] [place] [address] Bus Cleaner: Jersey Dahl MD [facility] [address] [place], [place] [id number] Bus Cleaner: Kayley Doll MD Diff Autoon 10-10-2022 Baso Absolute 0.1 x10*3/mcL Normal 0.0-0.2 [facility] Comment on above: Performed By: #### . Automated Diff ####[address] [address] Basophils/100 WBC (Bld) 0.8 % Normal 0.0-1.5 [facility] Comment on above: Performed By: #### . Automated Diff ####[address] [address] Eos Absolute 0.2 x10*3/mcL Normal 0.0-0.4 [facility] Comment on above: Performed By: #### . Automated Diff ####[address] [address] Eosinophils/100 WBC (Bld) 2.4 % Normal 0.0-5.4 [facility] Comment on above: Performed By: #### . Automated Diff ####[address] [address] Lymph Absolute 1.6 x10*3/mcL Normal 1.0-4.8 [facility] Comment on above: Performed By: #### . Automated Diff ####[address] [address] Lymphocytes/100 WBC (Bld) 20.4 % Low 27.2-40.8 [facility] Comment on above: Performed By: #### . Automated Diff ####[address] [address] [place]es Absolute 0.6 x10*3/mcL Normal 0.1-1.1 [facility] Comment on above: Performed By: #### . Automated Diff ####[address] [address] Monocytes/100 WBC (Bld) 7.4 % Normal 3.7-11.9 [facility] Comment on above: Performed By: #### . Automated Diff ####[address] [address] Neutro Absolute 5.3 x10*3/mcL Normal 1.8-7.7 [facility] Comment on above: Performed By: #### . Automated Diff ####[address] [address] Neutro Auto 69.0 % Normal 47.2-70.8 [facility] Comment on above: Performed By: #### . Automated Diff ####[address] [address] Free T4on 10-10-2022 Free T4 [Mass/Vol] 1.20 ng/dL High 0.61-1.12 [facility] Comment on above: Result Comment: Refe rence Ranges for Females: Females, 1st Trimester 0.52 ? 1.10 ng/dL Females, 2nd Trimester 0.45 ? 0.99 ng/dL Females, 3rd Trimester 0.48 - 0.95 ng/dL Performed By: #### B TOWN JUSTICE #### [address] [address] MRI Brain + MRA Head w/o Con traston 10-10-2022 MRI Brain + MRA Head w/o Contrast EXAM: MRI Brain + MRA Head w/o Contrast HISTORY: Stroke, COMPARISON: Head CT 10/08/2022 TECHNIQUE: MRI of the brain performed using MRA protocol without contrast. Multisequence multiplanar technique FINDINGS: Motion degraded examination. No restricted diffusion. Global volume loss. No mass effect or midline shift No gross stenosis detected on MRA sequence. Senescent changes: Global volume loss. No gross stenosis detected IMPRESSION: Motion degraded examination. No findings of acute intracranial infarct Final Dictated by: Zachery Quintanilla MD Dictated DT/TM: 10/10/2022 4:33 pm Signed by: Zachery Quintanilla MD Signed (Electronic Signature): 10/10/2022 4:51 pm (If Report Is Signed, Electronically Signed in Other Vendor System) Normal [facility] Comment on above: Order Comment: ATIVA N 2 MG IV IF NEEDED Magnesiumon 10-10-2022 Magnesium [Mass/Vol] 2.2 mg/dL Normal 1.7-2.4 [facility] Comment on above: Performed By: #### M G ####[facility] [place] [address] Nephrology Progress Noteon 0 10-10-2022 Nephrology Progress Note Subjective Patient evaluated in ICU. Spouse present during visit who provided additional history. Patient is obtunded, poorly arousable and noncommunicative. She has been receiving hypotonic IV hydration with D5W plus KCl at 100 cc/h within the past 24 hours, serum sodium slowly trending down from 156 - 146 mmol/L today Serum osmolality 311, urine osmolality 593. She remains oliguric, recorded urine output 450mL. Intermittent hypothermia Neurology consulted Review of Systems As noted above Objective Vitals & Measurements T: 36 ?C (Axillary) HR: 58 (Monitored) RR: 12 BP: 119/95 SpO2: 97% HT: 165 cm WT: 71 kg BMI: 26.08 Additional Vitals No qualifying data available. Lab Results Microbiology - Current Encounter No qualifying data available. Labs (Last four charted values) WBC 7.6 (OCTOBER 10) 5.8 (OCTOBER 09) Hgb L 10.0 (OCTOBER 10) L 9.7 (OCTOBER 09) Hct L 30.2 (OCTOBER 10) L 29.2 (OCTOBER 09) Plt 211 (OCTOBER 10) 187 (OCTOBER 09) Na H 146 (OCTOBER 10) H 148 (OCTOBER 10) H 148 (OCTOBER 10) H 148 (OCTOBER 10) K 3.4 (OCTOBER 10) 3.6 (OCTOBER 10) 3.6 (OCTOBER 10) 3.6 (OCTOBER 10) CO2 28 (OCTOBER 10) 28 (OCTOBER 10) 29 (OCTOBER 10) 28 (OCTOBER 10) Cl H 113 (OCTOBER 10) H 113 (OCTOBER 10) H 114 (OCTOBER 10) H 112 (OCTOBER 10) Cr H 1.20 (OCTOBER 10) H 1.24 (OCTOBER 10) H 1.25 (OCTOBER 10) H 1.46 (OCTOBER 10) BUN 26 (OCTOBER 10) 26 (OCTOBER 10) H 27 (OCTOBER 10) 26 (OCTOBER 10) Mg 2.2 (OCTOBER 10) L 1.5 (OCTOBER 09) Phos L 2.4 (OCTOBER 10) 2.8 (OCTOBER 09) PT 11.5 (OCTOBER 09) INR 1.1 (OCTOBER 09) PTT 29.1 (OCTOBER 09) Diagnostic Results Diagnostic Radiology XR Chest 1 View 10/10/22 03:39:21 IMPRESSION: Esophagogastric tube tip remains at the mid gastric body region. Signed By: Ryan Bess DO Magnetic Resonance Imaging MRI Brain and MRA Head w/o Contrast 10/10/22 16:51:21 IMPRESSION: Motion degraded examination. No findings of acute intracranial infarct Signed By: Zachery Quintanilla MD Physical Exam Constitutional: obtunded, noncommunicative, no acute distress ENT: Normocephalic, mouth breathing, dry oral mucosa Neck: Supple, non-tender, no lymphadenopathy, trachea midline Lungs: diminished bases, room air with o2 sat 97% CV: Normal rate, regular rhythm Abdomen: Soft, round, normal bowel sounds. Musculoskeletal: minimal movement Skin: Skin is warm, dry and pale, multiple healing bruises on legs, arms and trunk Neurologic: Minimal response to painful stimuli, opened eyes with abd palpation, no communicative, did not follow directions Ellison cath intact with yellow urine Medications Inpatient acetaminophen, 650 mg, Oral, q6hr, PRN acetaminophen, 650 mg, Oral, q6hr, PRN Ativan, 1 mg= 0.5 mL, IV Push, [id number] Times, PRN Benadryl, 25 mg, Oral, q6hr, PRN D5W w/K20 1,000 mL, 1000 mL, IV docusate sodium, 100 mg, Oral, BID Eliquis, 5 mg, Oral, BID levothyroxine, 50 mcg, Oral, Daily LORazepam, 2 mg= 1 mL, IV Push, Once, PRN nitroglycerin, 0.4 mg, SL, q5min, PRN Normal Saline Flush 0.9% injectable solution, 10 mL, IV Push, As Indicated, PRN Normal Saline Flush 0.9% injectable solution, 10 mL, IV Push, BID ondansetron, 4 mg= 2 mL, IV Push, q4hr, PRN polyethylene glycol 3350, 17 g= 1 EA, Oral, Daily, PRN Assessment/Plan 1. Hypernatremia Patient with known catatonic schizophrenia/TD admitted with AMS, hypernatremia due to free water losses and prerenal MILAGRO. Initially managed with Isotonic IVF at outside facility without improvements. Serum sodium range 150-156 mmol/L. Calculated free water deficits 2.75L. She has chronic hypernatremia with appropriate rate of correction within the past 24 hours. Serum sodium 146 mmol/L today on IV fluid with D5W plus KCl at 100 cc/h goal not to exceed 12 mmol correction within 24 hours. Replace electrolytes with hypotonic solutions and monitor serum sodium q6 hrs during correction. Patient was transferred from [place] for hypernatremia, AMS, hypotension, hypothermia, UTI and multiple electrolyte imbalances. Sodium level on 10/04/22 was elevated at 150. Admission to [place] ER her sodium was 158 at 13:25. Subsequent sodium levels: 10/08 at 18:23-152, 22:00-155, 10/09 at 02:00- 154, 04:00- 156, 06:00- 156. Hypomagnesemia improved with IV magnesium sulfate. Hypophosphatemia due to poor nutrition. Administer K-Phos 30 mmol in hypotonic solution. Ongoing work-up for encephalopathy, neuro consulted CXR, Blood cultures Obtain iron panel. Mix all IVs in D5W if able. Strict I/Os, daily weights Blood pressure soft. At this time she is not taking PO meds, may use Levo if needed for MAP 60-65. 2. Schizophrenia 3. Hypothermia 4. Metabolic encephalopathy 5. Chronic anticoagulation 6. Bradycardia Electronically signed by Kei Casas MD 10/10/22 18:21 EDT Normal [facility] Osmol,Serumon 10-10-2022 Serum Osmolality 311 mOsm/kg High 280-295 [facility] Comment on above: Performed By: #### R ENAL #### [address] [place] [address] Renal Panelon 10-10-2022 Albumin [Mass/Vol] 3.4 g/dL Normal 3.2-4.9 [facility] Comment on above: Performed By: #### R ENAL #### [address] [place] [address] Anion gap [Moles/Vol] 11 mmol/L Normal 7-17 [facility] Comment on above: Performed By: #### R ENAL #### [address] [place] [address] Calcium [Mass/Vol] 9.1 mg/dL Normal 8.5-10.3 [facility] Comment on above: Performed By: #### R ENAL #### [address] [place] [address] Chloride [Moles/Vol] 113 mmol/L High 98-110 [facility] Comment on above: Performed By: #### R ENAL #### [address] [place] [address] CO2 [Moles/Vol] 28 mmol/L Normal 22-32 [facility] Comment on above: Performed By: #### R ENAL #### [address] [place] [address] Creatinine [Mass/Vol] 1.24 mg/dL High 0.44-1.03 [facility] Comment on above: Performed By: #### R ENAL #### [address] [place] [address] Glucose [Mass/Vol] 93 mg/dL Normal 70-99 [facility] Comment on above: Performed By: #### R ENAL #### [address] [place] [address] Phosphate [Mass/Vol] 2.4 mg/dL Low 2.5-4.6 [facility] Comment on above: Performed By: #### R ENAL #### [address] [place] [address] Potassium [Moles/Vol] 3.6 mmol/L Normal 3.4-4.8 [facility] Comment on above: Performed By: #### R ENAL #### [address] [address] Sodium [Moles/Vol] 148 mmol/L High 133-142 [facility] Comment on above: Performed By: #### R ENAL #### [address] [address] Urea nitrogen [Mass/Vol] 26 mg/dL Normal 8-26 [facility] Comment on above: Performed By: #### R ENAL #### [address] [address] Urea nitrogen/Creatinine [Ma ss ratio] 21.0 mg/mg High 10.0-20.0 [facility] Comment on above: Performed By: #### R ENAL #### [address] [address] Speech Therapy Progress Note on 10-10-2022 Speech Therapy Progress Note Speech therapy order automatically gener ated secondary to deferred nursing swallow screen. Swallow screen was deferred as patient was not alert. Spoke with primary RN. Patient is not alert today and not appropriate for PO trials. This automatic order will be discontinued. RN will obtain new orders when patient is alert, if appropriate at that time. Electronically signed by Hafsa Nguyen 10/10/22 14:50 EDT Normal [facility] TIBCon 10-10-2022 Iron [Mass/Vol] 69 ug/dL Normal 28-170 [facility] Comment on above: Performed By: #### C OMP #### [address] [address] Iron Sat 24.1 % Normal >=16.0 [facility] Comment on above: Performed By: #### C OMP #### [address] [address] TIBC 286 mcg/dL Normal 261-478 [facility] Comment on above: Performed By: #### C OMP #### [address] [address] Transferrin [Mass/Vol] 204 mg/dL Normal 192-382 [facility] Comment on above: Performed By: #### C OMP #### [address] [address] UPCRon 10-10-2022 Creatinine [Mass/Vol] 176.2 mg/dL Normal [facility] Comment on above: Order Comment: Order ed by Discern Rule for Protein-Creatinine Ratio. Result Comment: The reference range has not been established for this test on a random urine sample. The test result should be interpreted based on clinical context. Performed By: #### U CI #### [address] [address] Ur Protein 24 mg/dL High <=10 [facility] Comment on above: Order Comment: Order ed by Discern Rule for Protein-Creatinine Ratio. Performed By: #### U CI #### [address] [address] Urine Protein/Creatinine Ratio 0.14 Normal <=0.2 8 [facility] Comment on above: Order Comment: Order ed by Discern Rule for Protein-Creatinine Ratio. Performed By: #### U CI #### [address] [address] Uric Acidon 10-10-2022 Urate [Mass/Vol] 8.3 mg/dL High 2.6-8.0 [facility] Comment on above: Performed By: #### B [employer]OWN [employer]ICE #### [address] [address] Vitamin D 25-Hydroxy Totalon 10-10-2022 Vitamin D 25-Hydroxy Total 41 ng/mL Normal 30-100 [facility] Comment on above: Result Comment: Bandar min D 25-Hydroxy Total Reference Range: Deficient: < 20 Insufficient: 20 to < 30 Sufficient: 30 - 100 Upper Safety Limit: > 100 Performed By: #### B TOWN JUSTICE #### [address] [address] X SSTon 10-10-2022 Extra SST Collected Normal [facility] Comment on above: Performed By: #### C OMP #### [address] [address] XR Chest 1 Viewon 10-10-2022 XR Chest 1 View EXAM: XR Chest 1 Vie w HISTORY: Line Placement, COMPARISON: None. TECHNIQUE: AP chest x-ray FINDINGS: Esophagogastric tube tip terminates in the region of the mid gastric body. Sidehole is distal to the GE junction level. Similar left basilar opacity is noted. Cardiac size is unchanged. Upper chest is excluded. IMPRESSION: Esophagogastric tube tip remains at the mid gastric body region. Final Dictated by: Ryan Bess DO Dictated DT/TM: 10/10/2022 3:37 am Signed by: Ryan Bess DO Signed (Electronic Signature): 10/10/2022 3:39 am (If Report Is Signed, Electronically Signed in Other Vendor System) Normal [facility] .UA Microscp Aon 10-09-2022 UA Bacteria Present Abnormal Absent [facility] Comment on above: Performed By: #### C [id number] #### [address] [address] UA CA Oxalate Present Abnormal Absent [facility] Comment on above: Performed By: #### C [id number] #### [address] [address] UA Mucus Present Abnormal Absent [facility] Comment on above: Performed By: #### C [id number] #### [address] [address] UA RBC Quant 39 /HPF High 0-5 [facility] Comment on above: Performed By: #### C [id number] #### [address] [address] UA Squepi Cells Quant 1 /HPF Normal 0-29 [facility] Comment on above: Performed By: #### C [id number] #### [facility] [address] [place] [address] UA WBC Clmp Present Abnormal Absent [facility] Comment on above: Performed By: #### C [id number] #### [facility] [address] [place] [address] UA WBC Quant 151 /HPF High 0-5 [facility] Comment on above: Performed By: #### C [id number] #### [id number] [place] [address] .eGFRon 10-09-2022 Estimated GFR 47 mL/min/1.73m? Low >=60 [facility] Comment on above: Result Comment: [facility] have implemented the eGFR calculation approach that does not have a coefficient for race and that conforms to the NKF-ASN Task Force Recommendations. Stages of Chronic Kidney Disease GFR Stage 3a Mild to moderate loss of kidney function 59 to 45 Stage 3b Moderate to severe loss of kidney function 44 to 33 Stage 4 Severe loss of kidney function 29 to 15 Stage 5 Kidney failure Less than 15 GFR calculated using the CKD-Epi Creatinine Equation (2020): eGFR = 142 X min(SCr/?, 1)? X max(SCr /?, 1)-1.200 X 0.9938Age X 1.012 [if female] Abbreviations/Units: eGFR (estimated glomerular filtration rate) = mL/min/1.73 m2 SCr (standardized serum creatinine) = mg/dL ? = 0.7 (females) or 0.9 (males) ? = -0.241 (females) or -0.302 (males) min = indicates the minimum of SCr/? or 1 max = indicates the maximum of SCr/? or 1 Age = years Performed By: #### B [employer]OWN [employer]ICE #### [address] [address] Estimated GFR 49 mL/min/1.73m? Low >=60 [facility] Comment on above: Result Comment: [facility] have implemented the eGFR calculation approach that does not have a coefficient for race and that conforms to the NKF-ASN Task Force Recommendations. Stages of Chronic Kidney Disease GFR Stage 3a Mild to moderate loss of kidney function 59 to 45 Stage 3b Moderate to severe loss of kidney function 44 to 33 Stage 4 Severe loss of kidney function 29 to 15 Stage 5 Kidney failure Less than 15 GFR calculated using the CKD-Epi Creatinine Equation (2020): eGFR = 142 X min(SCr/?, 1)? X max(SCr /?, 1)-1.200 X 0.9938Age X 1.012 [if female] Abbreviations/Units: eGFR (estimated glomerular filtration rate) = mL/min/1.73 m2 SCr (standardized serum creatinine) = mg/dL ? = 0.7 (females) or 0.9 (males) ? = -0.241 (females) or -0.302 (males) min = indicates the minimum of SCr/? or 1 max = indicates the maximum of SCr/? or 1 Age = years Performed By: #### R ENAL #### [address] [address] Estimated GFR 45 mL/min/1.73m? Low >=60 [facility] Comment on above: Result Comment: [facility] have implemented the eGFR calculation approach that does not have a coefficient for race and that conforms to the NKF-ASN Task Force Recommendations. Stages of Chronic Kidney Disease GFR Stage 3a Mild to moderate loss of kidney function 59 to 45 Stage 3b Moderate to severe loss of kidney function 44 to 33 Stage 4 Severe loss of kidney function 29 to 15 Stage 5 Kidney failure Less than 15 GFR calculated using the CKD-Epi Creatinine Equation (2020): eGFR = 142 X min(SCr/?, 1)? X max(SCr /?, 1)-1.200 X 0.9938Age X 1.012 [if female] Abbreviations/Units: eGFR (estimated glomerular filtration rate) = mL/min/1.73 m2 SCr (standardized serum creatinine) = mg/dL ? = 0.7 (females) or 0.9 (males) ? = -0.241 (females) or -0.302 (males) min = indicates the minimum of SCr/? or 1 max = indicates the maximum of SCr/? or 1 Age = years Performed By: #### B TOWN JUSTICE #### [address] [place] [address] Estimated GFR 49 mL/min/1.73m? Low >=60 [facility] Comment on above: Result Comment: [facility] have implemented the eGFR calculation approach that does not have a coefficient for race and that conforms to the NKF-ASN Task Force Recommendations. Stages of Chronic Kidney Disease GFR Stage 3a Mild to moderate loss of kidney function 59 to 45 Stage 3b Moderate to severe loss of kidney function 44 to 33 Stage 4 Severe loss of kidney function 29 to 15 Stage 5 Kidney failure Less than 15 GFR calculated using the CKD-Epi Creatinine Equation (2020): eGFR = 142 X min(SCr/?, 1)? X max(SCr /?, 1)-1.200 X 0.9938Age X 1.012 [if female] Abbreviations/Units: eGFR (estimated glomerular filtration rate) = mL/min/1.73 m2 SCr (standardized serum creatinine) = mg/dL ? = 0.7 (females) or 0.9 (males) ? = -0.241 (females) or -0.302 (males) min = indicates the minimum of SCr/? or 1 max = indicates the maximum of SCr/? or 1 Age = years Performed By: #### E GFR ####[facility] [place] [address] Estimated GFR 53 mL/min/1.73m? Low >=60 [facility] Comment on above: Result Comment: [facility] have implemented the eGFR calculation approach that does not have a coefficient for race and that conforms to the NKF-ASN Task Force Recommendations. Stages of Chronic Kidney Disease GFR Stage 3a Mild to moderate loss of kidney function 59 to 45 Stage 3b Moderate to severe loss of kidney function 44 to 33 Stage 4 Severe loss of kidney function 29 to 15 Stage 5 Kidney failure Less than 15 GFR calculated using the CKD-Epi Creatinine Equation (2020): eGFR = 142 X min(SCr/?, 1)? X max(SCr /?, 1)-1.200 X 0.9938Age X 1.012 [if female] Abbreviations/Units: eGFR (estimated glomerular filtration rate) = mL/min/1.73 m2 SCr (standardized serum creatinine) = mg/dL ? = 0.7 (females) or 0.9 (males) ? = -0.241 (females) or -0.302 (males) min = indicates the minimum of SCr/? or 1 max = indicates the maximum of SCr/? or 1 Age = years Performed By: #### R ENAL #### [facility] [address] [place] [address] GFR/1.73 sq M.predicted MDRD (S/P/Bld) [Vol rate/Area] mL/min/{1.73_m2} Normal >=60 [facility] Comment on above: Result Comment: [facility] have implemented the eGFR calculation approach that does not have a coefficient for race and that conforms to the NKF-ASN Task Force Recommendations. Stages of Chronic Kidney Disease GFR Stage 3a Mild to moderate loss of kidney function 59 to 45 Stage 3b Moderate to severe loss of kidney function 44 to 33 Stage 4 Severe loss of kidney function 29 to 15 Stage 5 Kidney failure Less than 15 GFR calculated using the CKD-Epi Creatinine Equation (2020): eGFR = 142 X min(SCr/?, 1)? X max(SCr /?, 1)-1.200 X 0.9938Age X 1.012 [if female] Abbreviations/Units: eGFR (estimated glomerular filtration rate) = mL/min/1.73 m2 SCr (standardized serum creatinine) = mg/dL ? = 0.7 (females) or 0.9 (males) ? = -0.241 (females) or -0.302 (males) min = indicates the minimum of SCr/? or 1 max = indicates the maximum of SCr/? or 1 Age = years Performed By: #### E GFR ####[address] [address] Ammoniaon 10-09-2022 Ammonia (P) [Moles/Vol] 31 umol/L Normal 9-35 [facility] Comment on above: Performed By: #### C [id number] #### [facility] [address] [place] [address] BNPon 10-09-2022 Natriuretic peptide B (Bld) [Mass/Vol] 88 pg/mL Normal 0-100 [facility] Comment on above: Order Comment: CHRISTIAN lambert came in while doing draws and saw BNP was marked as to be collected 10/10/2022 and had talked to pt's dr and asked for it to be collected today Performed By: #### C OMP #### [facility] [address] [place] [id number] Natriuretic peptide B (Bld) [Mass/Vol] 114 pg/mL High 0-100 [facility] Comment on above: Performed By: #### B TOWN JUSTICE #### [facility] [address] [place] [address] Basic Metabolic Panelon 09-30 Anion gap [Moles/Vol] 7 mmol/L Low 9 - 17 mmol/L [employer] [facility] [employer] Calcium [Mass/Vol] 10.4 mg/dL 8.6 - 10.4 mg/dL [facility] [employer] Chloride [Moles/Vol] 117 mmol/L High 98 - 107 mmol/L [facility] [employer] CO2 [Moles/Vol] 32 mmol/L High 20 - 31 mmol/L [facility] Creatinine [Mass/Vol] 0.88 mg/dL 0.50 - 0.90 mg /dL [facility] OPEN [employer] GFR/1.73 sq M.predicted MDRD (S/P/Bld) [Vol rate/Area] - [facility] [employer] Comment on above: These results are not intended for use in patients <18 years of age. eGFR results are calculated without a race factor using the 2020 CKD-EPI equation. Careful clinical correlation is recommended, particularly when comparing to results calculated using previous equations. The CKD-EPI equation is less accurate in patients with extremes of muscle mass, extra-renal metabolism of creatine, excessive creatine ingestion, or following therapy that affects renal tubular secretion. Glucose [Mass/Vol] 118 mg/dL High 70 - 99 mg/dL [employer] (T/A) Interpretation and review of laboratory results Abnormal [facility] Potassium [Moles/Vol] 3.4 mmol/L Low 3.7 - 5.3 mmol /L [facility] [employer] Sodium [Moles/Vol] 156 mmol/L High 135 - 144 mmol/L [employer] [facility] [employer] Urea nitrogen [Mass/Vol] 31 mg/dL High 8 - 23 mg/d L [employer] [facility] [employer] Urea nitrogen/Creatinine (Bld) [Mass ratio] 35 High 9 - 20 [facility] Anion gap [Moles/Vol] 6 mmol/L Low 9 - 17 mmol/L [facility] Calcium [Mass/Vol] 10.4 mg/dL 8.6 - 10.4 mg/dL [facility] Chloride [Moles/Vol] 118 mmol/L High 98 - 107 mmol/L [facility] CO2 [Moles/Vol] 32 mmol/L High 20 - 31 mmol/L [facility] Creatinine [Mass/Vol] 0.91 mg/dL High 0.50 - 0.90 mg /dL [facility] GFR/1.73 sq M.predicted MDRD (S/P/Bld) [Vol rate/Area] - [facility] Comment on above: These results are not intended for use in patients <18 years of age. eGFR results are calculated without a race factor using the 2020 CKD-EPI equation. Careful clinical correlation is recommended, particularly when comparing to results calculated using previous equations. The CKD-EPI equation is less accurate in patients with extremes of muscle mass, extra-renal metabolism of creatine, excessive creatine ingestion, or following therapy that affects renal tubular secretion. Glucose [Mass/Vol] 94 mg/dL 70 - 99 mg/dL [facility] Interpretation and review of laboratory results Abnormal [facility] Potassium [Moles/Vol] 3.5 mmol/L Low 3.7 - 5.3 mmol /L [facility] Sodium [Moles/Vol] 156 mmol/L High 135 - 144 mmol/L [facility] Urea nitrogen [Mass/Vol] 32 mg/dL High 8 - 23 mg/d L [facility] Urea nitrogen/Creatinine (Bld) [Mass ratio] 35 High 9 - 20 [facility] Anion gap [Moles/Vol] 7 mmol/L Low 9 - 17 mmol/L [facility] Calcium [Mass/Vol] 10.3 mg/dL 8.6 - 10.4 mg/dL [facility] Chloride [Moles/Vol] 117 mmol/L High 98 - 107 mmol/L [facility] CO2 [Moles/Vol] 30 mmol/L 20 - 31 mmol/L [facility] Creatinine [Mass/Vol] 0.9 mg/dL 0.50 - 0.90 mg /dL [facility] GFR/1.73 sq M.predicted MDRD (S/P/Bld) [Vol rate/Area] - [facility] Comment on above: These results are not intended for use in patients <18 years of age. eGFR results are calculated without a race factor using the 2020 CKD-EPI equation. Careful clinical correlation is recommended, particularly when comparing to results calculated using previous equations. The CKD-EPI equation is less accurate in patients with extremes of muscle mass, extra-renal metabolism of creatine, excessive creatine ingestion, or following therapy that affects renal tubular secretion. Glucose [Mass/Vol] 140 mg/dL High 70 - 99 mg/dL [facility] Interpretation and review of laboratory results Abnormal [facility] Potassium [Moles/Vol] 3.0 mmol/L Low 3.7 - 5.3 mmol /L [facility] Sodium [Moles/Vol] 154 mmol/L High 135 - 144 mmol/L [facility] Urea nitrogen [Mass/Vol] 32 mg/dL High 8 - 23 mg/d L [facility] Urea nitrogen/Creatinine (Bl d) [Mass ratio] 36 High 9 - 20 [facility] Basic Metabolic Profon 10-09 Anion gap [Moles/Vol] 7 mmol/L Low 9-17 [facility] Comment on above: Performed By: #### L IPR #### [facility] [employer] [address] [place] [address] Bus Cleaner: Jersey Dahl MD #### SARTHAK ISAAC #### [facility] [address] [place] [address] Bus Cleaner: Kayley Doll MD BUN/CRE Ratio 35 High 9-20 [facility] Comment on above: Performed By: #### L IPR #### [place] [address] [place] [address] Bus Cleaner: Jersey Dahl MD #### CDP, CP #### [facility] [address] [place], [place] [phone] Bus Cleaner: Kayley Doll MD Calcium [Mass/Vol] 10.4 mg/dL Normal 8.6-10.4 [facility] Comment on above: Performed By: #### L IPR #### [address] [address] Bus Cleaner: Jersey Dahl MD #### CDP, CP #### [address] [place], [place] [phone] Bus Cleaner: Kayley Doll MD Chloride [Moles/Vol] 117 mmol/L High 98-107 [facility] Comment on above: Performed By: #### L IPR #### [address] [address] Bus Cleaner: Jersey Dahl MD #### CDP, CP #### [address] [place], [place] [phone] Bus Cleaner: Kayley Doll MD CO2 [Moles/Vol] 32 mmol/L High 20-31 [facility] Comment on above: Performed By: #### L IPR #### [address] [address] Bus Cleaner: Jersey Dahl MD #### CDP, CP #### [facility] [address] [place] [address] [place], [place] [phone] Bus Cleaner: Kayley Doll MD Creatinine [Mass/Vol] 0.88 mg/dL Normal 0.50-0.90 [facility] Comment on above: Performed By: #### L IPR #### [address] [address] Bus Cleaner: Jersey Dahl MD #### CDP, CP #### [address] [place] [address] Bus Cleaner: Kayley Doll MD GFR/1.73 sq M.predicted luis g non-blacks MDRD (S/P/Bld) [Vol rate/Area] mL/min/{1.73_m2} Normal >60 [facility] Comment on above: Result Comment: These results are not intended for use in patients <18 years of age. eGFR results are calculated without a race factor using the 2020 CKD-EPI equation. Careful clinical correlation is recommended, particularly when comparing to results calculated using previous equations. The CKD-EPI equation is less accurate in patients with extremes of muscle mass, extra-renal metabolism of creatine, excessive creatine ingestion, or following therapy that affects renal tubular secretion. Performed By: #### L IPR #### [address] [id number] Bus Cleaner: Jersey Dahl MD #### CDP, CP #### [address] [place] [address] Bus Cleaner: Kayley Doll MD Glucose [Mass/Vol] 118 mg/dL High 70-99 [facility] Comment on above: Performed By: #### L IPR #### [address] [address] Bus Cleaner: Jersey Dahl MD #### CDP, CP #### [address] [place] [address] Bus Cleaner: Kayley Doll MD Potassium [Moles/Vol] 3.4 mmol/L Low 3.7-5.3 [facility] Comment on above: Performed By: #### L IPR #### [address] [address] Bus Cleaner: Jersey Dahl MD #### CDP, CP #### [address] [place] [address] Bus Cleaner: Kayley Doll MD Sodium [Moles/Vol] 156 mmol/L High 135-144 [facility] Comment on above: Performed By: #### L IPR #### [facility] [address] [place] [address] Bus Cleaner: Jersey Dahl MD #### CDP, CP #### [facility] [address] [place], [place] [phone] Bus Cleaner: Kayley Doll MD Urea nitrogen [Mass/Vol] 31 mg/dL High 8-23 [facility] Comment on above: Performed By: #### L IPR #### [facility] [address] [place] [address] Bus Cleaner: Jersey Dahl MD #### CDP, CP #### [facility] [address] [place], [place] [phone] Bus Cleaner: Kayley Doll MD Anion gap [Moles/Vol] 6 mmol/L Low 9-17 [facility] Comment on above: Performed By: #### B MP #### [facility] [address] [place], [place] [phone] Bus Cleaner: Kayley Doll MD BUN/CRE Ratio 35 High 9-20 [facility] Comment on above: Performed By: #### B MP #### [facility] [address] [place], [place] [phone] Bus Cleaner: Kayley Doll MD Calcium [Mass/Vol] 10.4 mg/dL Normal 8.6-10.4 [facility] Comment on above: Performed By: #### B MP #### [facility] [address] [place], [place] [phone] Bus Cleaner: Kayley Doll MD Chloride [Moles/Vol] 118 mmol/L High 98-107 [facility] Comment on above: Performed By: #### B MP #### [facility] [address] [place] [address] Bus Cleaner: Kayley Doll MD CO2 [Moles/Vol] 32 mmol/L High 20-31 [facility] Comment on above: Performed By: #### B MP #### [facility] [address] [place] [address] Bus Cleaner: Kayley Doll MD Creatinine [Mass/Vol] 0.91 mg/dL High 0.50-0.90 [facility] Comment on above: Performed By: #### B MP #### [facility] [address] [place] [address] Bus Cleaner: Kayley Doll MD GFR/1.73 sq M.predicted luis g non-blacks MDRD (S/P/Bld) [Vol rate/Area] mL/min/{1.73_m2} Normal >60 [facility] Comment on above: Result Comment: These results are not intended for use in patients <18 years of age. eGFR results are calculated without a race factor using the 2020 CKD-EPI equation. Careful clinical correlation is recommended, particularly when comparing to results calculated using previous equations. The CKD-EPI equation is less accurate in patients with extremes of muscle mass, extra-renal metabolism of creatine, excessive creatine ingestion, or following therapy that affects renal tubular secretion. Performed By: #### B MP #### [facility] [address] [place] [address] Bus Cleaner: Kayley Doll MD Glucose [Mass/Vol] 94 mg/dL Normal 70-99 [facility] Comment on above: Performed By: #### B MP #### [facility] [address] [place] [address] Bus Cleaner: Kayley Doll MD Potassium [Moles/Vol] 3.5 mmol/L Low 3.7-5.3 [facility] Comment on above: Performed By: #### B MP #### [facility] [address] [place] [address] Bus Cleaner: Kayley Doll MD Sodium [Moles/Vol] 156 mmol/L High 135-144 [facility] Comment on above: Performed By: #### B MP #### [facility] [address] [place], [place] [phone] Bus Cleaner: Kayley Doll MD Urea nitrogen [Mass/Vol] 32 mg/dL High 8-23 [facility] Comment on above: Performed By: #### B MP #### [facility] [address] [place], [place] [phone] Bus Cleaner: Kayley Doll MD Anion gap [Moles/Vol] 7 mmol/L Low 9-17 [facility] Comment on above: Performed By: #### L IPR #### [address] [address] Bus Cleaner: Jersey Dahl MD #### CDP, CP #### [address] [place], [place] [phone] Bus Cleaner: Kayley Doll MD BUN/CRE Ratio 36 High 9-20 [facility] Comment on above: Performed By: #### L IPR #### [address] [address] Bus Cleaner: Jersey Dahl MD #### CDP, CP #### [facility] [address] [place] [address] [place] [place], [place] [phone] Bus Cleaner: Kayley Doll MD Calcium [Mass/Vol] 10.3 mg/dL Normal 8.6-10.4 [facility] Comment on above: Performed By: #### L IPR #### [address] [address] Bus Cleaner: Jersey Dahl MD #### CDP, CP #### [address] [place], [place] [phone] Bus Cleaner: Kayley Doll MD Chloride [Moles/Vol] 117 mmol/L High 98-107 [facility] Comment on above: Performed By: #### L IPR #### [facility] [address] [place] [address] Bus Cleaner: Jersey Dahl MD #### CDP, CP #### [facility] [address] [place], [place] [phone] Bus Cleaner: Kayley Doll MD CO2 [Moles/Vol] 30 mmol/L Normal 20-31 [facility] Comment on above: Performed By: #### L IPR #### [facility] [address] [place] [address] Bus Cleaner: Jersey Dahl MD #### CDP, CP #### [facility] [address] [place], [place] [phone] Bus Cleaner: Kayley Doll MD Creatinine [Mass/Vol] 0.90 mg/dL Normal 0.50-0.90 [facility] Comment on above: Performed By: #### L IPR #### [facility] [address] [place] [address] Bus Cleaner: Jersey Dahl MD #### CDP, CP #### [facility] [address] [place] [address] [place], [place] [phone] Bus Cleaner: Kayley Doll MD GFR/1.73 sq M.predicted luis g non-blacks MDRD (S/P/Bld) [Vol rate/Area] mL/min/{1.73_m2} Normal >60 [facility] Comment on above: Result Comment: These results are not intended for use in patients <18 years of age. eGFR results are calculated without a race factor using the 2020 CKD-EPI equation. Careful clinical correlation is recommended, particularly when comparing to results calculated using previous equations. The CKD-EPI equation is less accurate in patients with extremes of muscle mass, extra-renal metabolism of creatine, excessive creatine ingestion, or following therapy that affects renal tubular secretion. Performed By: #### L IPR #### [address] [address] Bus Cleaner: Jersey Dahl MD #### CDP, CP #### [address] [place], [place] [phone] Bus Cleaner: Kayley Doll MD Glucose [Mass/Vol] 140 mg/dL High 70-99 [facility] Comment on above: Performed By: #### L IPR #### [address] [address] Bus Cleaner: Jersey Dahl MD #### CDP, CP #### [address] [place], [place] [phone] Bus Cleaner: Kayley Doll MD Potassium [Moles/Vol] 3.0 mmol/L Low 3.7-5.3 [facility] Comment on above: Performed By: #### L IPR #### [address] [address] Bus Cleaner: Jersey Dahl MD #### CDP, CP #### [address] [place], [place] [phone] Bus Cleaner: Kayley Doll MD Sodium [Moles/Vol] 154 mmol/L High 135-144 [facility] Comment on above: Performed By: #### L IPR #### [address] [address] Bus Cleaner: Jersey Dahl MD #### CDP, CP #### [address] [place], [place] 1904[address] Bus Cleaner: Kayley Doll MD Urea nitrogen [Mass/Vol] 32 mg/dL High 8-23 [facility] Comment on above: Performed By: #### L IPR #### [address] [address] Bus Cleaner: Jersey Dahl MD #### CDP, CP #### [facility] [address] [place], [place] 1987[address] Bus Cleaner: Kayley Doll MD Anion gap [Moles/Vol] 10 mmol/L Normal 9-17 [facility] Comment on above: Performed By: #### L IPR #### [address] [address] Bus Cleaner: Jersey Dahl MD #### CDP, CP #### [address] [place], [place] [phone] Bus Cleaner: Kayley Doll MD BUN/CRE Ratio 37 High 9-20 [facility] Comment on above: Performed By: #### L IPR #### [address] [address] Bus Cleaner: Jersey Dahl MD #### CDP, CP #### [address] [place], [place] [phone] Bus Cleaner: Kayley Doll MD Calcium [Mass/Vol] 10.3 mg/dL Normal 8.6-10.4 [facility] Comment on above: Performed By: #### L IPR #### [address] [address] Bus Cleaner: Jersey Dahl MD #### CDP, CP #### [address] [place] [address] Bus Cleaner: Kayley Doll MD Chloride [Moles/Vol] 116 mmol/L High 98-107 [facility] Comment on above: Performed By: #### L IPR #### [address] [address] Bus Cleaner: Jersey Dahl MD #### CDP, CP #### [address] [place], [place] [phone] Bus Cleaner: Kayley Doll MD CO2 [Moles/Vol] 29 mmol/L Normal 20-31 [facility] Comment on above: Performed By: #### L IPR #### [facility] [address] [place] [address] Bus Cleaner: Jersey Dahl MD #### CDP, CP #### [facility] [address] [place] [address] Bus Cleaner: Kayley Doll MD Creatinine [Mass/Vol] 0.94 mg/dL High 0.50-0.90 [facility] Comment on above: Performed By: #### L IPR #### [address] [place], [place] [phone] Bus Cleaner: Jersey Dahl MD #### CDP, CP #### [address] [place] [address] Bus Cleaner: Kayley Doll MD GFR/1.73 sq M.predicted luis g non-blacks MDRD (S/P/Bld) [Vol rate/Area] mL/min/{1.73_m2} Normal >60 [facility] Comment on above: Result Comment: These results are not intended for use in patients <18 years of age. eGFR results are calculated without a race factor using the 2020 CKD-EPI equation. Careful clinical correlation is recommended, particularly when comparing to results calculated using previous equations. The CKD-EPI equation is less accurate in patients with extremes of muscle mass, extra-renal metabolism of creatine, excessive creatine ingestion, or following therapy that affects renal tubular secretion. Performed By: #### L IPR #### [facility] [address] [place] [address] Bus Cleaner: Jersey Dahl MD #### CDP, CP #### [facility] [address] [place] [address] Bus Cleaner: Kayley Doll MD Glucose [Mass/Vol] 144 mg/dL High 70-99 [facility] Comment on above: Performed By: #### L IPR #### [address] [place] [address] Bus Cleaner: Jersey Dahl MD #### CDP, CP #### [facility] [address] [place], [place] [phone] Bus Cleaner: Kayley Doll MD Potassium [Moles/Vol] 3.3 mmol/L Low 3.7-5.3 [facility] Comment on above: Performed By: #### L IPR #### [address] [address] Bus Cleaner: Jersey Dahl MD #### CDP, CP #### [address] [place], [place] [phone] Bus Cleaner: Kayley Doll MD Sodium [Moles/Vol] 155 mmol/L High 135-144 [facility] Comment on above: Performed By: #### L IPR #### [address] [address] Bus Cleaner: Jersey Dahl MD #### CDP, CP #### [address] [place], [place] [phone] Bus Cleaner: Kayley Doll MD Urea nitrogen [Mass/Vol] 35 mg/dL High 8-23 [facility] Comment on above: Performed By: #### L IPR #### [address] [address] Bus Cleaner: Jersey Dahl MD #### CDP, CP #### [facility] [address] [place] [address] [place] [place], [place] [phone] Bus Cleaner: Kayley Doll MD Basic Metabolic Profileon Anion gap [Moles/Vol] 10 mmol/L Normal 7-17 [facility] Comment on above: Order Comment: until sodium normalized Performed By: #### C [id number] ####[address] [address] Calcium [Mass/Vol] 9.1 mg/dL Normal 8.5-10.3 [facility] Comment on above: Order Comment: until sodium normalized Performed By: #### C [id number] ####[address] [address] Chloride [Moles/Vol] 117 mmol/L High 98-110 [facility] Comment on above: Order Comment: until sodium normalized Performed By: #### C [id number] ####[address] [address] CO2 [Moles/Vol] 28 mmol/L Normal 22-32 [facility] Comment on above: Order Comment: until sodium normalized Performed By: #### C [id number] ####[address] [address] Creatinine [Mass/Vol] 1.26 mg/dL High 0.44-1.03 [facility] Comment on above: Order Comment: until sodium normalized Performed By: #### C [id number] ####[address] [address] Glucose [Mass/Vol] 90 mg/dL Normal 70-99 [facility] Comment on above: Order Comment: until sodium normalized Performed By: #### C [id number] ####[address] [address] Potassium [Moles/Vol] 3.9 mmol/L Normal 3.4-4.8 [facility] Comment on above: Order Comment: until sodium normalized Performed By: #### C [id number] ####[address] [address] Sodium [Moles/Vol] 151 mmol/L High 133-142 [facility] Comment on above: Order Comment: until sodium normalized Performed By: #### C [id number] ####[address] [address] Urea nitrogen [Mass/Vol] 30 mg/dL High 8-26 [facility] Comment on above: Order Comment: until sodium normalized Performed By: #### C [id number] ####[facility] [place] [address] Urea nitrogen/Creatinine [Ma ss ratio] 23.8 mg/mg High 10.0-20.0 [facility] Comment on above: Order Comment: until sodium normalized Performed By: #### C [id number] ####[address] [place] [address] Anion gap [Moles/Vol] 10 mmol/L Normal 7-17 [facility] Comment on above: Order Comment: until sodium normalized Performed By: #### C [id number] #### [address] [address] Calcium [Mass/Vol] 9.2 mg/dL Normal 8.5-10.3 [facility] Comment on above: Order Comment: until sodium normalized Performed By: #### C [id number] #### [address] [address] Chloride [Moles/Vol] 116 mmol/L High 98-110 [facility] Comment on above: Order Comment: until sodium normalized Performed By: #### C [id number] #### [facility] [address] [place] [address] CO2 [Moles/Vol] 29 mmol/L Normal 22-32 [facility] Comment on above: Order Comment: until sodium normalized Performed By: #### C [id number] #### [address] [address] Creatinine [Mass/Vol] 1.21 mg/dL High 0.44-1.03 [facility] Comment on above: Order Comment: until sodium normalized Performed By: #### C [id number] #### [address] [address] Glucose [Mass/Vol] 81 mg/dL Normal 70-99 [facility] Comment on above: Order Comment: until sodium normalized Performed By: #### C [id number] #### [address] [address] Potassium [Moles/Vol] 4.0 mmol/L Normal 3.4-4.8 [facility] Comment on above: Order Comment: until sodium normalized Performed By: #### C [id number] #### [address] [address] Sodium [Moles/Vol] 151 mmol/L High 133-142 [facility] Comment on above: Order Comment: until sodium normalized Performed By: #### C [id number] #### [address] [address] Urea nitrogen [Mass/Vol] 29 mg/dL High 8-26 [facility] Comment on above: Order Comment: until sodium normalized Performed By: #### C [id number] #### [address] [address] Urea nitrogen/Creatinine [Ma ss ratio] 24.0 mg/mg High 10.0-20.0 [facility] Comment on above: Order Comment: until sodium normalized Performed By: #### C [id number] #### [address] [address] Anion gap [Moles/Vol] 9 mmol/L Normal 7-17 [facility] Comment on above: Performed By: #### U CI #### [address] [address] Calcium [Mass/Vol] 9.4 mg/dL Normal 8.5-10.3 [facility] Comment on above: Performed By: #### U CI #### [address] [address] Chloride [Moles/Vol] 116 mmol/L High 98-110 [facility] Comment on above: Performed By: #### U CI #### [address] [address] CO2 [Moles/Vol] 30 mmol/L Normal 22-32 [facility] Comment on above: Performed By: #### U CI #### [address] [address] Creatinine [Mass/Vol] 1.31 mg/dL High 0.44-1.03 [facility] Comment on above: Performed By: #### U CI #### [address] [address] Glucose [Mass/Vol] 94 mg/dL Normal 70-99 [facility] Comment on above: Performed By: #### U CI #### [address] [address] Potassium [Moles/Vol] 4.0 mmol/L Normal 3.4-4.8 [facility] Comment on above: Performed By: #### U CI #### [address] [address] Sodium [Moles/Vol] 151 mmol/L High 133-142 [facility] Comment on above: Performed By: #### U CI #### [address] [address] Urea nitrogen [Mass/Vol] 31 mg/dL High 8-26 [facility] [facility] Comment on above: Performed By: #### U CI #### [address] [address] Urea nitrogen/Creatinine [Ma ss ratio] 23.7 mg/mg High 10.0-20.0 [facility] Comment on above: Performed By: #### U CI #### [address] [address] Anion gap [Moles/Vol] 9 mmol/L Normal 7-17 [facility] Comment on above: Order Comment: until sodium normalized Performed By: #### C [id number] #### [address] [address] Calcium [Mass/Vol] 9.2 mg/dL Normal 8.5-10.3 [facility] Comment on above: Order Comment: until sodium normalized Performed By: #### C [id number] #### [address] [address] Chloride [Moles/Vol] 116 mmol/L High 98-110 [facility] Comment on above: Order Comment: until sodium normalized Performed By: #### C [id number] #### [address] [address] CO2 [Moles/Vol] 29 mmol/L Normal 22-32 [facility] Comment on above: Order Comment: until sodium normalized Performed By: #### C [id number] #### [address] [address] Creatinine [Mass/Vol] 1.22 mg/dL High 0.44-1.03 [facility] Comment on above: Order Comment: until sodium normalized Performed By: #### C [id number] #### [address] [address] Glucose [Mass/Vol] 145 mg/dL High 70-99 [facility] Comment on above: Order Comment: until sodium normalized Performed By: #### C D:[id number] #### [address] [address] Potassium [Moles/Vol] 3.9 mmol/L Normal 3.4-4.8 [facility] Comment on above: Order Comment: until sodium normalized Performed By: #### C [id number] #### [address] [address] Sodium [Moles/Vol] 150 mmol/L High 133-142 [facility] Comment on above: Order Comment: until sodium normalized Performed By: #### C [id number] #### [address] [address] Urea nitrogen [Mass/Vol] 30 mg/dL High 8-26 [facility] Comment on above: Order Comment: until sodium normalized Performed By: #### C [id number] #### [address] [address] Urea nitrogen/Creatinine [Ma ss ratio] 24.6 mg/mg High 10.0-20.0 [facility] Comment on above: Order Comment: until sodium normalized Performed By: #### C [id number] #### [address] [address] Anion gap [Moles/Vol] 11 mmol/L Normal 7-17 [facility] Comment on above: Order Comment: until sodium normalized Performed By: #### C [id number] #### [address] [address] Calcium [Mass/Vol] 9.5 mg/dL Normal 8.5-10.3 [facility] Comment on above: Order Comment: until sodium normalized Performed By: #### C [id number] #### [address] [address] Chloride [Moles/Vol] 117 mmol/L High 98-110 [facility] Comment on above: Order Comment: until sodium normalized Performed By: #### C [id number] #### [address] [address] CO2 [Moles/Vol] 28 mmol/L Normal 22-32 [facility] Comment on above: Order Comment: until sodium normalized Performed By: #### C [id number] #### [address] [address] Creatinine [Mass/Vol] 1.14 mg/dL High 0.44-1.03 [facility] Comment on above: Order Comment: until sodium normalized Performed By: #### C D:[id number] #### [address] [address] Glucose [Mass/Vol] 99 mg/dL Normal 70-99 [facility] Comment on above: Order Comment: until sodium normalized Performed By: #### C D:[id number] #### [address] [address] Potassium [Moles/Vol] 3.4 mmol/L Normal 3.4-4.8 [facility] Comment on above: Order Comment: until sodium normalized Performed By: #### C D:[id number] #### [address] [address] Sodium [Moles/Vol] 153 mmol/L High 133-142 [facility] Comment on above: Order Comment: until sodium normalized Performed By: #### C [id number] #### [address] [address] Urea nitrogen [Mass/Vol] 33 mg/dL High 8-26 [facility] Comment on above: Order Comment: until sodium normalized Performed By: #### C D:[id number] #### [address] [address] Urea nitrogen/Creatinine [Ma ss ratio] 28.9 mg/mg High 10.0-20.0 [facility] Comment on above: Order Comment: until sodium normalized Performed By: #### C D:[id number] #### [address] [address] Blood Gas Arterialon 023 Base Excess Art 6.0 mEq/L High -2.0-2.0 [facility] Comment on above: Performed By: #### C D:[id number] #### [address] [address] BG Alberto Test Satisfactory Normal [facility] Comment on above: Performed By: #### C D:[id number] #### [address] [address] BG Collection Site Rt Rad Normal [facility] Comment on above: Performed By: #### C D:[id number] #### [address] [address] Carboxyhemoglobin Arterial 1.0 % total Normal 0.0-2.0 [facility] Comment on above: Performed By: #### C D:[id number] #### [address] [address] Hb Totl Arterial 9.3 g% Low 12.0-16.0 [facility] Comment on above: Performed By: #### C D:[id number] #### [address] [address] HbO2 Art 97 % total Normal 94-100 [facility] Comment on above: Performed By: #### C D:[id number] #### [address] [address] HCO3 (Bld) [Moles/Vol] 32 mmol/L High 21-27 [facility] Comment on above: Performed By: #### C D:[id number] #### [address] [address] Met Hb Arterial 0.6 % total Normal 0.0-2.0 [facility] Comment on above: Performed By: #### C D:[id number] #### [address] [place] [address] O2 Meth O2 Normal [facility] Comment on above: Performed By: #### C D:[id number] #### [address] [place] [address] pCO2 Art 55 mmHg High 35-45 [facility] Comment on above: Performed By: #### C [id number] #### [address] [place] [address] pH Art 7.38 Normal 7.35-7.45 [facility] Comment on above: Performed By: #### C D:[id number] #### [address] [place] [address] pO2 Art 112 mmHg High 80-100 [facility] Comment on above: Performed By: #### C D:[id number] #### [address] [address] CBC w/ Diffon 10-09-2022 Erythrocyte distribution wid th (RBC) [Ratio] 16.4 % High 11.6-14.8 [facility] Comment on above: Performed By: #### B [employer]OWN [employer]ICE #### [address] [address] Hematocrit (Bld) [Volume fraction] 29.2 % Low 36.0-46.0 [facility] Comment on above: Performed By: #### B [employer] #### [address] [address] Hemoglobin (Bld) [Mass/Vol] 9.7 g/dL Low 12.0-16. 0 [facility] Comment on above: Performed By: #### B [employer] #### [address] [address] MCH (RBC) [Entitic mass] 31.3 pg Normal 27.0-35.0 [facility] Comment on above: Performed By: #### B [employer] #### [address] [address] MCHC 33.2 % Normal 31.0-37.0 [facility] Comment on above: Performed By: #### B [employer] #### [address] [address] MCV (RBC) [Entitic vol] 94.1 fL Normal 80.0-100.0 [facility] Comment on above: Performed By: #### B [employer] #### [address] [address] Platelet 187 x10*3/mcL Normal 150-350 [facility] Comment on above: Performed By: #### B [employer] #### [address] [address] Platelet mean volume (Bld) [Entitic vol] 8.5 fL Normal 6.7-10.6 [facility] Comment on above: Performed By: #### B [employer] #### [address] [address] RBC 3.10 x10*6/mcL Low 3.80-5.20 [facility] Comment on above: Performed By: #### B [employer] #### [address] [address] WBC 5.8 x10*3/mcL Normal 4.5-11.0 [facility] Comment on above: Performed By: #### B [employer] #### [address] [address] CMPon 10-09-2022 Albumin [Mass/Vol] 3.2 g/dL Normal 3.2-4.9 [facility] Comment on above: Performed By: #### C OMP #### [address] [address] Albumin/Globulin [Mass ratio] 1.1 {ratio} Normal 1.1-2 .2 [facility] Comment on above: Performed By: #### C OMP #### [address] [address] Alk Phos 75 IU/L Normal 32-91 [facility] Comment on above: Performed By: #### C OMP #### [address] [address] ALT [Catalytic activity/Vol] 27 U/L Normal 14-54 [facility] Comment on above: Performed By: #### C OMP #### [address] [address] Anion gap [Moles/Vol] 10 mmol/L Normal 7-17 [facility] Comment on above: Performed By: #### C OMP #### [address] [address] AST [Catalytic activity/Vol] 24 U/L Normal 15-41 [facility] Comment on above: Performed By: #### C OMP #### [address] [address] Bili Total 0.9 mg/dL Normal 0.3-1.2 [facility] Comment on above: Performed By: #### C OMP #### [address] [address] Calcium [Mass/Vol] 9.4 mg/dL Normal 8.5-10.3 [facility] Comment on above: Performed By: #### C OMP #### [address] [address] Chloride [Moles/Vol] 117 mmol/L High 98-110 [facility] Comment on above: Performed By: #### C OMP #### [address] [address] CO2 [Moles/Vol] 28 mmol/L Normal 22-32 [facility] Comment on above: Performed By: #### C OMP #### [address] [address] Creatinine [Mass/Vol] 0.95 mg/dL Normal 0.44-1.03 [facility] Comment on above: Performed By: #### C OMP #### [address] [address] Glucose [Mass/Vol] 150 mg/dL High 70-99 [facility] Comment on above: Performed By: #### C OMP #### [address] [address] Potassium [Moles/Vol] 3.3 mmol/L Low 3.4-4.8 [facility] Comment on above: Performed By: #### C OMP #### [address] [address] Protein [Mass/Vol] 6.1 g/dL Low 6.5-8.1 [facility] Comment on above: Performed By: #### C OMP #### [address] [address] Sodium [Moles/Vol] 152 mmol/L High 133-142 [facility] Comment on above: Performed By: #### C OMP #### [address] [address] Urea nitrogen [Mass/Vol] 33 mg/dL High 8-26 [facility] Comment on above: Performed By: #### C OMP #### [address] [address] Urea nitrogen/Creatinine [Ma ss ratio] 34.7 mg/mg High 10.0-20.0 [facility] Comment on above: Performed By: #### C OMP #### [address] [address] Diff Autoon 10-09-2022 Baso Absolute 0.0 x10*3/mcL Normal 0.0-0.2 [facility] Comment on above: Performed By: #### . Automated Diff ####[address] [address] Basophils/100 WBC (Bld) 0.6 % Normal 0.0-1.5 [facility] Comment on above: Performed By: #### . Automated Diff ####[address] [address] Eos Absolute 0.1 x10*3/mcL Normal 0.0-0.4 [facility] Comment on above: Performed By: #### . Automated Diff ####[address] [address] Eosinophils/100 WBC (Bld) 2.5 % Normal 0.0-5.4 [facility] Comment on above: Performed By: #### . Automated Diff ####[address] [address] Lymph Absolute 0.8 x10*3/mcL Low 1.0-4.8 [facility] Comment on above: Performed By: #### . Automated Diff ####[address] [address] Lymphocytes/100 WBC (Bld) 14.5 % Low 27.2-40.8 [facility] Comment on above: Performed By: #### . Automated Diff ####[address] [address] Ciales Absolute 0.3 x10*3/mcL Normal 0.1-1.1 [facility] Comment on above: Performed By: #### . Automated Diff ####[address] [address] Monocytes/100 WBC (Bld) 5.8 % Normal 3.7-11.9 [facility] Comment on above: Performed By: #### . Automated Diff ####[address] [address] Neutro Absolute 4.5 x10*3/mcL Normal 1.8-7.7 [facility] Comment on above: Performed By: #### . Automated Diff ####[address] [address] Neutro Auto 76.6 % High 47.2-70.8 [facility] Comment on above: Performed By: #### . Automated Diff ####[address] [address] Lactic Acid, Initial w/Rflx 3 Houron 10-09-2022 Lactic Acid, Initial 1.4 mmol/L Normal 0.5-2.0 [facility] Comment on above: Performed By: #### C D:[id number] ####[address] [address] MRSA, PCRon 10-09-2022 LAB ONLY Result Called? No Normal [facility] Comment on above: Performed By: #### B [employer] #### [address] [address] Methicillin Resistant Staph aurus(MRSA) Not detected Normal Not Detected [facility] Comment on above: Result Comment: Mut ations or polymorphisms in primer or probe binding regions may affect detection of new or unknown MRSA variants resulting in a false negative. The [employer] Xpert MRSA Assay is a qualitative in vitro diagnostic test designed for rapid detection of Methicillin-Resistant Staphylococcus aureus (MRSA) from nasal swabs in patients at risk for nasal colonization.The test utilizes automated real-time polymerase chain reaction (PCR) to detect MRSA DNA,because the detection of MRSA is dependent on the number of organisms present. A positive test result does not necessarily indicate the presence of viable organism. It is however,presumptive for the presence of MRSA.Test results might be affected by concurrent antibiotic therapy. Therefore, therapeutic success or failure cannot be assessed using this test because DNA might persist following antimicrobial therapy. Mutations or polymorphisms in primer or probe binding regions may affect detection of new or unknown MRSA variants resulting in a false negative result. Results from the Xpert MRSA Assay should be interpreted in conjunction with other laboratory and clinical data available to the clinician. Performed By: #### B [employer]ICE #### [address] [address] Magnesiumon 10-09-2022 Magnesium [Mass/Vol] 1.5 mg/dL Low 1.7-2.4 [facility] Comment on above: Performed By: #### C D:[id number] #### [address] [address] Myoglobinon 10-09-2022 Myoglobin [Mass/Vol] 37.1 ng/mL Normal [facility] Comment on above: Performed By: #### C OMP #### [address] [address] Osmol,Serumon 10-09-2022 Serum Osmolality 319 mOsm/kg High 280-295 [facility] Comment on above: Performed By: #### C D:[id number] #### [address] [address] Outside [facility] Correspo ndenceon 10-09-2022 Outside [facility] Correspondence [id number] Normal [facility] PTon 10-09-2022 INR Coag (PPP) [Relative time] 1.1 {INR} Normal <=3.5 [facility] Comment on above: Result Comment: INR has no normal range. INR Therapeutic range is: 2.0-3.0 (AF, CVA, TIAs, DVT prophylaxis, acute DVT) 2.5-3.5 (Mech heart valves, recurrent thrombosis/emboli) Performed By: #### C D:[id number] #### [address] [place] [address] PT Coag (PPP) [Time] 11.5 s Normal 9.3-11.9 [facility] Comment on above: Performed By: #### C D:[id number] #### [address] [address] PTTon 10-09-2022 aPTT Coag (Bld) [Time] 29.1 s Normal 20.6-29.2 [facility] Comment on above: Performed By: #### C OMP #### [address] [address] Phosphoruson 10-09-2022 Phosphate [Mass/Vol] 2.8 mg/dL Normal 2.5-4.6 [facility] Comment on above: Performed By: #### C D:[id number] #### [address] [address] TSHon 10-09-2022 TSH Qn 0.97 m[IU]/L Normal 0.45-5.33 [facility] Comment on above: Result Comment: Refe rence Ranges for individuals from to 18 years of age were obtained from The Inna Asencio Handbook (20 ed) published by [facility]. Reference Ranges for Females: Females, 1st Trimester 0.05 ? 3.7 uIU/mL Females, 2nd Trimester 0.31 ? 4.35 uIU/mL Females, 3rd Trimester 0.41 ? 5.18 uIU/mL Performed By: #### C D:[id number] #### [address] [address] Troponin-Ion 10-09-2022 Troponin I.cardiac [Mass/Vol] ng/mL Normal 0.00-0 .03 [facility] Comment on above: Result Comment: An i ncreased Troponin-I value, in the absence of myocardial ischemia, may indicate other etiologies of cardiac damage. Performed By: #### C D:[id number] #### [address] [address] U Lyteson 10-09-2022 Chloride [Moles/Vol] 175 mmol/L Normal [facility] Comment on above: Performed By: #### C OMP #### [address] [address] Potassium [Moles/Vol] 62.0 mmol/L Normal [facility] Comment on above: Performed By: #### C OMP #### [address] [address] Sodium [Moles/Vol] 150 mmol/L Normal [facility] Comment on above: Performed By: #### C OMP #### [address] [address] U Osmolon 10-09-2022 Urine Osmolality 593 mOsm/kg H2O Normal 50-1200 [facility] Comment on above: Order Comment: Dayne e obtain urine and serum testing together. Place Ellison, drain bladder, then obtain sample. Performed By: #### B [employer]ICE #### [address] [address] UA w Culture if Indon 2022 Color (U) Yellow Normal [facility] Comment on above: Performed By: #### U CI #### [address] [address] Ketones Ql (U) 10 mg/dL Abnormal Negative [facility] Comment on above: Performed By: #### U CI #### [address] [address] UA Blood Negative Normal Negative [facility] Comment on above: Performed By: #### U CI #### [address] [address] UA Clarity Turbid Normal [facility] Comment on above: Performed By: #### U CI #### [address] [address] UA Glucose Normal Normal Negative [facility] Comment on above: Performed By: #### U CI #### [address] [address] UA Leukocyte Esterase 500 Abnormal Negative [facility] Comment on above: Performed By: #### U CI #### [address] [address] UA Nitrite Negative Normal Negative [facility] Comment on above: Performed By: #### U CI #### [address] [address] UA pH 5.0 Normal 4.5 - 7.8 [facility] Comment on above: Performed By: #### U CI #### [address] [address] UA Protein 30 mg/dL Abnormal Negative [facility] Comment on above: Performed By: #### U CI #### [address] [address] UA Source Catheter Normal [facility] Comment on above: Performed By: #### U CI #### [address] [address] UA Spec Grav 1.026 Normal 1.003-1.035 [facility] Comment on above: Performed By: #### U CI #### [address] [address] UA Urobilinogen Normal Normal 0.2 - 1.0 [facility] Comment on above: Performed By: #### U CI #### [address] [address] Urobilinogen (U) [Mass/Vol] Negative Normal Negative [facility] Comment on above: Performed By: #### U CI #### [address] [address] XR Chest 1 Viewon 10-09-2022 XR Chest 1 View EXAM: XR Chest 1 Vie w HISTORY: Shortness of breath (SOB), COMPARISON: Chest x-ray dated 09/28/2022. TECHNIQUE: Single portable AP upright view of the chest FINDINGS: Stable enlarged cardiac silhouette is seen, which obscures the underlying left lower chest. As such, the left lung base cannot be accurately assessed. Similarly, a small left pleural effusion cannot be excluded. No significant right pleural effusion is seen. The visualized lungs otherwise appear clear. No obvious pneumothorax is seen. IMPRESSION: Limited evaluation of the left lower lung. Otherwise no radiographic evidence for acute cardiopulmonary disease. Final Dictated by: Dary Duggan MD Dictated DT/TM: 10/09/2022 6:54 pm Signed by: Dary Duggan MD Signed (Electronic Signature): 10/09/2022 7:00 pm (If Report Is Signed, Electronically Signed in Other Vendor System) Normal [facility] Basic Metabolic Panelon 05 Anion gap [Moles/Vol] 10 mmol/L 9 - 17 mmol/L [facility] [employer] Calcium [Mass/Vol] 10.3 mg/dL 8.6 - 10.4 mg/dL [facility] [employer] Chloride [Moles/Vol] 116 mmol/L High 98 - 107 mmol/L [facility] CO2 [Moles/Vol] 29 mmol/L 20 - 31 mmol/L [facility] Creatinine [Mass/Vol] 0.94 mg/dL High 0.50 - 0.90 mg /dL [facility] [employer] GFR/1.73 sq M.predicted MDRD (S/P/Bld) [Vol rate/Area] - [facility] [employer] Comment on above: These results are not intended for use in patients <18 years of age. eGFR results are calculated without a race factor using the 2020 CKD-EPI equation. Careful clinical correlation is recommended, particularly when comparing to results calculated using previous equations. The CKD-EPI equation is less accurate in patients with extremes of muscle mass, extra-renal metabolism of creatine, excessive creatine ingestion, or following therapy that affects renal tubular secretion. Glucose [Mass/Vol] 144 mg/dL High 70 - 99 mg/dL [facility] Interpretation and review of laboratory results Abnormal [facility] [employer] Potassium [Moles/Vol] 3.3 mmol/L Low 3.7 - 5.3 mmol /L [facility] Sodium [Moles/Vol] 155 mmol/L High 135 - 144 mmol/L [facility] [employer] Urea nitrogen [Mass/Vol] 35 mg/dL High 8 - 23 mg/d L [facility] Urea nitrogen/Creatinine (Bld) [Mass ratio] 37 High 9 - 20 [facility] Anion gap [Moles/Vol] 10 mmol/L 9 - 17 mmol/L [facility] Calcium [Mass/Vol] 10.5 mg/dL High 8.6 - 10.4 mg/dL [facility] Chloride [Moles/Vol] 116 mmol/L High 98 - 107 mmol/L [facility] CO2 [Moles/Vol] 29 mmol/L 20 - 31 mmol/L [facility] Creatinine [Mass/Vol] 0.87 mg/dL 0.50 - 0.90 mg /dL [facility] GFR/1.73 sq M.predicted MDRD (S/P/Bld) [Vol rate/Area] - [facility] Comment on above: These results are not intended for use in patients <18 years of age. eGFR results are calculated without a race factor using the 2020 CKD-EPI equation. Careful clinical correlation is recommended, particularly when comparing to results calculated using previous equations. The CKD-EPI equation is less accurate in patients with extremes of muscle mass, extra-renal metabolism of creatine, excessive creatine ingestion, or following therapy that affects renal tubular secretion. Glucose [Mass/Vol] 136 mg/dL High 70 - 99 mg/dL [facility] Interpretation and review of laboratory results Abnormal [facility] Potassium [Moles/Vol] 3.4 mmol/L Low 3.7 - 5.3 mmol /L [facility] Sodium [Moles/Vol] 155 mmol/L High 135 - 144 mmol/L [facility] Urea nitrogen [Mass/Vol] 35 mg/dL High 8 - 23 mg/d L [facility] Urea nitrogen/Creatinine (Bld) [Mass ratio] 40 High 9 - 20 [facility] Anion gap [Moles/Vol] 11 mmol/L 9 - 17 mmol/L [facility] Calcium [Mass/Vol] 10.8 mg/dL High 8.6 - 10.4 mg/dL [facility] Chloride [Moles/Vol] 113 mmol/L High 98 - 107 mmol/L [facility] CO2 [Moles/Vol] 28 mmol/L 20 - 31 mmol/L [facility] Creatinine [Mass/Vol] 0.94 mg/dL High 0.50 - 0.90 mg /dL [facility] GFR/1.73 sq M.predicted MDRD (S/P/Bld) [Vol rate/Area] - [facility] Comment on above: These results are not intended for use in patients <18 years of age. eGFR results are calculated without a race factor using the 2020 CKD-EPI equation. Careful clinical correlation is recommended, particularly when comparing to results calculated using previous equations. The CKD-EPI equation is less accurate in patients with extremes of muscle mass, extra-renal metabolism of creatine, excessive creatine ingestion, or following therapy that affects renal tubular secretion. Glucose [Mass/Vol] 129 mg/dL High 70 - 99 mg/dL [facility] Interpretation and review of laboratory results Abnormal [facility] Potassium [Moles/Vol] 3.5 mmol/L Low 3.7 - 5.3 mmol /L [facility] Sodium [Moles/Vol] 152 mmol/L High 135 - 144 mmol/L [facility] Urea nitrogen [Mass/Vol] 38 mg/dL High 8 - 23 mg/d L [facility] Urea nitrogen/Creatinine (Bld) [Mass ratio] 40 High 9 - 20 [facility] Anion gap [Moles/Vol] 9 mmol/L 9 - 17 mmol/L [facility] Calcium [Mass/Vol] 10.7 mg/dL High 8.6 - 10.4 mg/dL [facility] Chloride [Moles/Vol] 118 mmol/L High 98 - 107 mmol/L [facility] CO2 [Moles/Vol] 30 mmol/L 20 - 31 mmol/L [facility] Creatinine [Mass/Vol] 0.97 mg/dL High 0.50 - 0.90 mg /dL [facility] GFR/1.73 sq M.predicted MDRD (S/P/Bld) [Vol rate/Area] - [facility] Comment on above: These results are not intended for use in patients <18 years of age. eGFR results are calculated without a race factor using the 2020 CKD-EPI equation. Careful clinical correlation is recommended, particularly when comparing to results calculated using previous equations. The CKD-EPI equation is less accurate in patients with extremes of muscle mass, extra-renal metabolism of creatine, excessive creatine ingestion, or following therapy that affects renal tubular secretion. Glucose [Mass/Vol] 78 mg/dL 70 - 99 mg/dL [facility] Interpretation and review of laboratory results Abnormal [facility] Potassium [Moles/Vol] 4.1 mmol/L 3.7 - 5.3 mmol /L [facility] Sodium [Moles/Vol] 157 mmol/L High 135 - 144 mmol/L [facility] Urea nitrogen [Mass/Vol] 37 mg/dL High 8 - 23 mg/d L [facility] Urea nitrogen/Creatinine (Bl d) [Mass ratio] 38 High 9 - 20 [facility] Basic Metabolic Profon 10-08 Anion gap [Moles/Vol] 10 mmol/L Normal 9-17 [facility] Comment on above: Performed By: #### L IPR #### [facility] [address] [place] [address] Bus Cleaner: Jersey Dahl MD #### CDP, CP #### [facility] [address] [place] [address] Bus Cleaner: Kayley Doll MD BUN/CRE Ratio 40 High 9-20 [facility] Comment on above: Performed By: #### L IPR #### [facility] [address] [place] [address] Bus Cleaner: Jersey Dahl MD #### CDP, CP #### [facility] [address] [place] [address] Bus Cleaner: Kayley Doll MD Calcium [Mass/Vol] 10.5 mg/dL High 8.6-10.4 [facility] Comment on above: Performed By: #### L IPR #### [address] [address] Bus Cleaner: Jersey Dahl MD #### CDP, CP #### [facility] [address] [place] [address] Dr. [place], [place] [phone] Bus Cleaner: Kayley Doll MD Chloride [Moles/Vol] 116 mmol/L High 98-107 [facility] Comment on above: Performed By: #### L IPR #### [address] [address] Bus Cleaner: Jersey Dahl MD #### CDP, CP #### [address] [place], [place] [id number] Bus Cleaner: Kayley Doll MD CO2 [Moles/Vol] 29 mmol/L Normal 20-31 [facility] Comment on above: Performed By: #### L IPR #### [address] [address] Bus Cleaner: Jersey Dahl MD #### CDP, CP #### [address] [place] [address] Bus Cleaner: Kayley Doll MD Creatinine [Mass/Vol] 0.87 mg/dL Normal 0.50-0.90 [facility] Comment on above: Performed By: #### L IPR #### [address] [address] Bus Cleaner: Jersey Dahl MD #### CDP, CP #### [address] [place] [address] Bus Cleaner: Kayley Doll MD GFR/1.73 sq M.predicted luis g non-blacks MDRD (S/P/Bld) [Vol rate/Area] mL/min/{1.73_m2} Normal >60 [facility] Comment on above: Result Comment: These results are not intended for use in patients <18 years of age. eGFR results are calculated without a race factor using the 2020 CKD-EPI equation. Careful clinical correlation is recommended, particularly when comparing to results calculated using previous equations. The CKD-EPI equation is less accurate in patients with extremes of muscle mass, extra-renal metabolism of creatine, excessive creatine ingestion, or following therapy that affects renal tubular secretion. Performed By: #### L IPR #### [address] [address] Bus Cleaner: Jersey Dahl MD #### CDP, CP #### [address] [place] [address] Bus Cleaner: Kayley Doll MD Glucose [Mass/Vol] 136 mg/dL High 70-99 [facility] Comment on above: Performed By: #### L IPR #### [address] [address] Bus Cleaner: Jersey Dahl MD #### CDP, CP #### [address] [place], [place] [id number] Bus Cleaner: Kayley Doll MD Potassium [Moles/Vol] 3.4 mmol/L Low 3.7-5.3 [facility] Comment on above: Performed By: #### L IPR #### [address] [address] Bus Cleaner: Jersey Dahl MD #### CDP, CP #### [address] [place] [address] Bus Cleaner: Kayley Doll MD Sodium [Moles/Vol] 155 mmol/L High 135-144 [facility] Comment on above: Performed By: #### L IPR #### [address] [address] Bus Cleaner: Jersey Dahl MD #### CDP, CP #### [address] [place], [place] [phone] Bus Cleaner: Kayley Doll MD Urea nitrogen [Mass/Vol] 35 mg/dL High 8-23 [facility] Comment on above: Performed By: #### L IPR #### [facility] [address] [place] [address] Bus Cleaner: Jersey Dahl MD #### CDP, CP #### [facility] [address] [place] [address] Dr. [place], [place] [phone] Bus Cleaner: Kayley Doll MD Anion gap [Moles/Vol] 11 mmol/L Normal 9-17 [facility] Comment on above: Performed By: #### L IPR #### [address] [address] Bus Cleaner: Jersey Dahl MD #### CDP, CP #### [address] [place] [address] Bus Cleaner: Kayley Doll MD BUN/CRE Ratio 40 High 9-20 [facility] Comment on above: Performed By: #### L IPR #### [address] [address] Bus Cleaner: Jersey Dahl MD #### CDP, CP #### [address] [place], [place] 5803583 Bus Cleaner: Kayley Doll MD Calcium [Mass/Vol] 10.8 mg/dL High 8.6-10.4 [facility] Comment on above: Performed By: #### L IPR #### [address] [address] Bus Cleaner: Jersey Dahl MD #### CDP, CP #### [address] [place], [place] [phone] Bus Cleaner: Kayley Doll MD Chloride [Moles/Vol] 113 mmol/L High 98-107 [facility] Comment on above: Performed By: #### L IPR #### [place] [address] [place] [address] Bus Cleaner: Jersey Dahl MD #### CDP, CP #### [facility] [address] [place], [place] [phone] Bus Cleaner: Kayley Doll MD CO2 [Moles/Vol] 28 mmol/L Normal 20-31 [facility] Comment on above: Performed By: #### L IPR #### [address] [address] Bus Cleaner: Jersey Dahl MD #### CDP, CP #### [facility] [address] [place], [place] [phone] Bus Cleaner: Kayley Doll MD Creatinine [Mass/Vol] 0.94 mg/dL High 0.50-0.90 [facility] Comment on above: Performed By: #### L IPR #### [address] [address] Bus Cleaner: Jersey Dahl MD #### CDP, CP #### [facility] [address] [place] [address] Dr. [place], [place] 1130783 Bus Cleaner: Kayley Doll MD GFR/1.73 sq M.predicted luis g non-blacks MDRD (S/P/Bld) [Vol rate/Area] mL/min/{1.73_m2} Normal >60 [facility] Comment on above: Result Comment: These results are not intended for use in patients <18 years of age. eGFR results are calculated without a race factor using the 2020 CKD-EPI equation. Careful clinical correlation is recommended, particularly when comparing to results calculated using previous equations. The CKD-EPI equation is less accurate in patients with extremes of muscle mass, extra-renal metabolism of creatine, excessive creatine ingestion, or following therapy that affects renal tubular secretion. Performed By: #### L IPR #### [address] [place] [address] Bus Cleaner: Jersey Dahl MD #### CDP, CP #### [facility] [address] [place] [address] Bus Cleaner: Kayley Doll MD Glucose [Mass/Vol] 129 mg/dL High 70-99 [facility] Comment on above: Performed By: #### L IPR #### [address] [address] Bus Cleaner: Jersey Dahl MD #### CDP, CP #### [facility] [address] [place] [address] [place] [address] Bus Cleaner: Kayley Doll MD Potassium [Moles/Vol] 3.5 mmol/L Low 3.7-5.3 [facility] Comment on above: Performed By: #### L IPR #### [address] [address] Bus Cleaner: Jersey Dahl MD #### CDP, CP #### [address] [place] [facility] Bus Cleaner: Kayley Doll MD Sodium [Moles/Vol] 152 mmol/L High 135-144 [facility] Comment on above: Performed By: #### L IPR #### [address] [address] Bus Cleaner: Jersey Dahl MD #### CDP, CP #### [facility] [address] [place] [address] Dr. [place], [place] [phone] Bus Cleaner: Kayley Doll MD Urea nitrogen [Mass/Vol] 38 mg/dL High 8-23 [facility] Comment on above: Performed By: #### L IPR #### [address] [address] Bus Cleaner: Jersey Dahl MD #### CDP, CP #### [facility] [address] [place], [place] [phone] Bus Cleaner: Kayley Doll MD Anion gap [Moles/Vol] 9 mmol/L Normal 9-17 [facility] Comment on above: Performed By: #### L IPR #### [facility] [address] [place] [address] Bus Cleaner: Jersey Dahl MD #### CDP, CP #### [facility] [address] [place], [place] [phone] Bus Cleaner: Kayley Doll MD BUN/CRE Ratio 38 High 9-20 [facility] Comment on above: Performed By: #### L IPR #### [address] [address] Bus Cleaner: Jersey Dahl MD #### CDP, CP #### [address] [place] [address] Bus Cleaner: Kayley Doll MD Calcium [Mass/Vol] 10.7 mg/dL High 8.6-10.4 [facility] Comment on above: Performed By: #### L IPR #### [address] [address] Bus Cleaner: Jersey Dahl MD #### CDP, CP #### [address] [place], [place] [phone] Bus Cleaner: Kayley Doll MD Chloride [Moles/Vol] 118 mmol/L High 98-107 [facility] Comment on above: Performed By: #### L IPR #### [address] [address] Bus Cleaner: Jersey Dahl MD #### CDP, CP #### [address] [place], [place] [phone] Bus Cleaner: Kayley Doll MD CO2 [Moles/Vol] 30 mmol/L Normal 20-31 [facility] Comment on above: Performed By: #### L IPR #### [facility] [address] [place] [address] Bus Cleaner: Jersey Dahl MD #### CDP, CP #### [facility] [address] [place] [address] Bus Cleaner: Kayley Doll MD Creatinine [Mass/Vol] 0.97 mg/dL High 0.50-0.90 [facility] Comment on above: Performed By: #### L IPR #### [facility] [address] [place] [address] Bus Cleaner: Jersey Dahl MD #### CDP, CP #### [facility] [address] [place] [address] [place] [address] Bus Cleaner: Kayley Doll MD GFR/1.73 sq M.predicted luis g non-blacks MDRD (S/P/Bld) [Vol rate/Area] mL/min/{1.73_m2} Normal >60 [facility] Comment on above: Result Comment: These results are not intended for use in patients <18 years of age. eGFR results are calculated without a race factor using the 2020 CKD-EPI equation. Careful clinical correlation is recommended, particularly when comparing to results calculated using previous equations. The CKD-EPI equation is less accurate in patients with extremes of muscle mass, extra-renal metabolism of creatine, excessive creatine ingestion, or following therapy that affects renal tubular secretion. Performed By: #### L IPR #### [facility] [address] [place] [address] Bus Cleaner: Jersey aDhl MD #### CDP, CP #### [facility] [address] [place] [address] Bus Cleaner: Kayley Doll MD Glucose [Mass/Vol] 78 mg/dL Normal 70-99 [facility] Comment on above: Performed By: #### L IPR #### [address] [address] Bus Cleaner: Jersey Dahl MD #### CDP, CP #### [address] [place], [place] 1094483 Bus Cleaner: Kayley Doll MD Potassium [Moles/Vol] 4.1 mmol/L Normal 3.7-5.3 [facility] Comment on above: Performed By: #### L IPR #### [address] [address] Bus Cleaner: Jersey Dahl MD #### CDP, CP #### [address] [place] [address] Bus Cleaner: Kayley Doll MD Sodium [Moles/Vol] 157 mmol/L High 135-144 [facility] Comment on above: Performed By: #### L IPR #### [address] [address] Bus Cleaner: Jersey Dahl MD #### CDP, CP #### [address] [place] [address] Bus Cleaner: Kayley Doll MD Urea nitrogen [Mass/Vol] 37 mg/dL High 8-23 [facility] Comment on above: Performed By: #### L IPR #### [address] [address] Bus Cleaner: Jersey Dahl MD #### CDP, CP #### [facility] [address] [place] [address] Dr. [place] [address] Bus Cleaner: Kayley Doll MD CBC with Auto Differentialon 10-08-2022 Absolute Eos # 0.06 [facility] Absolute Immature Granulocyte 0.03 [facility] Absolute Lymph # 0.68 Low [facility] Absolute Ciales # 0.32 [facility] Basophils (Bld) [#/Vol] 0.03 10*3/uL [facility] Basophils/100 WBC (Bld) 0 % 0 - 2 % [facility] ON [facility] Eosinophils/100 WBC (Bld) 1 % 1 - 4 % [facility] Hematocrit (Bld) [Volume fraction] 35.0 % Low 36.3 - 47.1 % [facility] Hemoglobin (Bld) [Mass/Vol] 11.0 g/dL Low 11.9 - 1 5.1 g/dL [facility] Immature granulocytes/100 WB C (Bld) 0 % 0 [facility] Interpretation and review of laboratory results Abnormal [facility] Lymphocytes/100 WBC (Bld) 10 % Low 24 - 43 % [facility] MCH (RBC) [Entitic mass] 30.9 pg 25.2 - 33.5 pg [facility] MCHC (RBC) [Mass/Vol] 31.4 g/dL 28.4 - 34.8 g/ dL [facility] MCV (RBC) [Entitic vol] 98.3 fL 82.6 - 102.9 fL [facility] Monocytes/100 WBC (Bld) 5 % 3 - 12 % B ON [facility] NRBC Automated 0.0 0.0 per 100 WBC [facility] Platelet distribution width (Bld) [Ratio] 15.5 % High 11.8 - 14.4 % [facility] Platelet mean volume (Bld) [Entitic vol] 10.2 fL 8.1 - 13.5 fL [facility] Platelets (Bld) [#/Vol] 203 10*3/uL [facility] RBC (Bld) [#/Vol] 3.56 10*6/uL Low 3.95 - 5.11 m/uL [facility] Segmented neutrophils/100 WB C (Bld) 84 % High 36 - 65 % [facility] Segs Absolute 5.86 [facility] WBC (Bld) [#/Vol] 7.0 10*3/uL [facility] CBC with Diffon 10-08-2022 Abs. Basophil 0.03 k/uL Normal 0.00-0.20 [facility] Comment on above: Performed By: #### L IPR #### [address] [address] Bus Cleaner: Jersey Dahl MD #### CDP, CP #### [facility] [address] [place] [address] Dr[address] [place] [phone] Bus Cleaner: Kayley Doll MD Abs.Imm.Granulocyte 0.03 k/uL Normal 0.00-0.30 [facility] Comment on above: Performed By: #### L IPR #### [place] [address] Bus Cleaner: Jersey Dahl MD #### CDP, CP #### [address] [place] [phone] Bus Cleaner: Kayley Doll MD Abs.Neutrophil (Seg) 5.86 k/uL Normal 1.50-8.10 [facility] Comment on above: Performed By: #### L IPR #### [place] [address] Bus Cleaner: Jersey Dahl MD #### CDP, CP #### [address] [place] [address] Bus Cleaner: Kayley Doll MD Basophils/100 WBC (Bld) 0 % Normal 0-2 [facility] Comment on above: Performed By: #### L IPR #### [place] [address] Bus Cleaner: Jersey Dahl MD #### CDP, CP #### [facility] [address] [place] [address] [place] [address] Bus Cleaner: Kayley Doll MD Eosinophils (Bld) [#/Vol] 0.06 10*3/uL Normal 0.00-0.4 4 [facility] Comment on above: Performed By: #### L IPR #### [address] [address] Bus Cleaner: Jersey Dahl MD #### CDP, CP #### [address] [place], [place] [phone] Bus Cleaner: Kayley Doll MD Eosinophils/100 WBC (Bld) 1 % Normal 1-4 [facility] Comment on above: Performed By: #### L IPR #### [address] [address] Bus Cleaner: Jersey Dahl MD #### CDP, CP #### [address] [place], [place] 1075483 Bus Cleaner: Kayley Doll MD Erythrocyte distribution wid th (RBC) [Ratio] 15.5 % High 11.8-14.4 [facility] Comment on above: Performed By: #### L IPR #### [address] [address] Bus Cleaner: Jersey Dahl MD #### CDP, CP #### [address] [place] [address]6789[address] Bus Cleaner: Kayley Doll MD Hematocrit (Bld) [Volume fraction] 35.0 % Low 3 6.3-47.1 [facility] Comment on above: Performed By: #### L IPR #### [address] [address] Bus Cleaner: Jersey Dahl MD #### CDP, CP #### [address] [place] [address] Bus Cleaner: Kayley Doll MD Hemoglobin (Bld) [Mass/Vol] 11.0 g/dL Low 11.9-15. 1 [facility] Comment on above: Performed By: #### L IPR #### [address] [address] Bus Cleaner: Jersey Dahl MD #### CDP, CP #### [address] [place] [address]678983 Bus Cleaner: Kayley Doll MD Immature granulocytes/100 WBC (Bld) 0 % Normal 0 [facility] Comment on above: Performed By: #### L IPR #### [address] [address] Bus Cleaner: Jersey Dahl MD #### CDP, CP #### [address] [place] [address] ( Bus Cleaner: Kayley Doll MD Lymphocytes (Bld) [#/Vol] 0.68 10*3/uL Low 1.10-3.7 0 [facility] Comment on above: Performed By: #### L IPR #### [address] [address] Bus Cleaner: Jersey Dahl MD #### CDP, CP #### [address] [place] [address]678983 Bus Cleaner: Kayley Doll MD Lymphocytes/100 WBC (Bld) 10 % Low 24-43 [facility] Comment on above: Performed By: #### L IPR #### [address] [address] Bus Cleaner: Jersey Dahl MD #### CDP, CP #### [address] [place] [address]678983 Bus Cleaner: Kayley Doll MD MCH (RBC) [Entitic mass] 30.9 pg Normal 25.2-33.5 [facility] Comment on above: Performed By: #### L IPR #### [address] [address] Bus Cleaner: Jersey Dahl MD #### CDP, CP #### [facility] [address] [place], [place] [phone] Bus Cleaner: Kayley Doll MD MCHC (RBC) [Mass/Vol] 31.4 g/dL Normal 28.4-34.8 [facility] Comment on above: Performed By: #### L IPR #### [address] [address] Bus Cleaner: Jersey Dahl MD #### CDP, CP #### [facility] [address] [place], [place] [phone] Bus Cleaner: Kayley Doll MD MCV (RBC) [Entitic vol] 98.3 fL Normal 82.6-102.9 [facility] Comment on above: Performed By: #### L IPR #### [address] [address] Bus Cleaner: Jersey Dahl MD #### CDP, CP #### [facility] [address] [place], [place] [phone] Bus Cleaner: Kayley Doll MD Monocytes (Bld) [#/Vol] 0.32 10*3/uL Normal 0.10-1.20 [facility] Comment on above: Performed By: #### L IPR #### [address] [address] Bus Cleaner: Jersey Dahl MD #### CDP, CP #### [facility] [address] [place], [place] [phone] Bus Cleaner: Kayley Doll MD Monocytes/100 WBC (Bld) 5 % Normal 3-12 [facility] Comment on above: Performed By: #### L IPR #### [address] [address] Bus Cleaner: Jersey Dahl MD #### CDP, CP #### [address] [place], [place] 6198983 Bus Cleaner: Kayley Doll MD Neutrophil (Seg) 84 % High 36-65 [facility] Comment on above: Performed By: #### L IPR #### [address] [address] Bus Cleaner: Jersey Dahl MD #### CDP, CP #### [address] [place] [address] Bus Cleaner: Kayley Doll MD NRBC Automated 0.0 per 100 WBC Normal 0.0 [facility] Comment on above: Performed By: #### L IPR #### [address] [address] Bus Cleaner: Jersey Dahl MD #### CDP, CP #### [address] [place] [address] Bus Cleaner: Kayley Doll MD Platelet mean volume (Bld) [ Entitic vol] 10.2 fL Normal 8.1-13.5 [facility] Comment on above: Performed By: #### L IPR #### [address] [address] Bus Cleaner: Jersey Dahl MD #### CDP, CP #### [address] [place] [address] Bus Cleaner: Kayley Doll MD Platelets (Bld) [#/Vol] 203 10*3/uL Normal 138-453 [facility] Comment on above: Performed By: #### L IPR #### [address] [address] Bus Cleaner: Jersey Dahl MD #### CDP, CP #### [address] [place], [place] [phone] Bus Cleaner: Kayley Doll MD RBC (Bld) [#/Vol] 3.56 10*6/uL Low 3.95-5.11 [facility] Comment on above: Performed By: #### L IPR #### [facility] [address] [place], [place] [phone] Bus Cleaner: Jersey Dahl MD #### CDP, CP #### [facility] [address] [place] [address] Bus Cleaner: Kayley Doll MD WBC (Bld) [#/Vol] 7.0 10*3/uL Normal 3.5-11.3 [facility] Comment on above: Performed By: #### L IPR #### [facility] [address] [place], [place] [phone] Bus Cleaner: Jersey Dahl MD #### MARLIN, CP #### [address] [place] [address] Bus Cleaner: Kayley Doll MD CT HEAD WO CONTRASTon 2022 CT HEAD WO CONTRAST EXAMINATION: CT OF THE HEAD WITHOUT CONTRAST 10/08/2022 2:16 pm TECHNIQUE: CT of the head was performed without the administration of intravenous contrast. Automated exposure control, iterative reconstruction, and/or weight based adjustment of the mA/kV was utilized to reduce the radiation dose to as low as reasonably achievable. COMPARISON: None. HISTORY: ORDERING SYSTEM PROVIDED HISTORY: altered mentation, and difficulty swallowing TECHNOLOGIST PROVIDED HISTORY: altered mentation, and difficulty swallowing Decision Support Exception - unselect if not a suspected or confirmed emergency medical condition->Emergency Medical Condition (MA) FINDINGS: BRAIN/VENTRICLES: There is no acute intracranial hemorrhage, mass effect, or midline shift. There is satisfactory overall mccormack-white matter differentiation. The ventricular structures are symmetric and unremarkable. The infratentorial structures are unremarkable. ORBITS: The visualized portion of the orbits demonstrate no acute abnormality. SINUSES: The visualized paranasal sinuses and mastoid air cells demonstrate no acute abnormality. SOFT TISSUES/SKULL: No acute abnormality of the visualized skull or soft tissues. IMPRESSION: No acute intracranial abnormality. Interpreted by: Jay Horn MD Signed by: Jay Horn MD 10/08/22 Final result [facility] WO Contraston 2022 No acute intracrania l abnormality. [facility] RIS CONSOLIDATE D EXAMINATION: CT OF THE HEAD WITHOUT CONTRAST 10/08/2022 2:16 pm TECHNIQUE: CT of the head was performed without the administration of intravenous contrast. Automated exposure control, iterative reconstruction, and/or weight based adjustment of the mA/kV was utilized to reduce the radiation dose to as low as reasonably achievable. COMPARISON: None. HISTORY: ORDERING SYSTEM PROVIDED HISTORY: altered mentation, and difficulty swallowing TECHNOLOGIST PROVIDED HISTORY: altered mentation, and difficulty swallowing Decision Support Exception - unselect if not a suspected or confirmed emergency medical condition->Emergency Medical Condition (MA) FINDINGS: BRAIN/VENTRICLES: There is no acute intracranial hemorrhage, mass effect, or midline shift. There is satisfactory overall mccormack-white matter differentiation. The ventricular structures are symmetric and unremarkable. The infratentorial structures are unremarkable. ORBITS: The visualized portion of the orbits demonstrate no acute abnormality. SINUSES: The visualized paranasal sinuses and mastoid air cells demonstrate no acute abnormality. SOFT TISSUES/SKULL: No acute abnormality of the visualized skull or soft tissues. [facility] CONSOLID[facility] D Jay Horn MD - 10/08/2022 EXAMINATION: CT OF THE HEAD WITHOUT CONTRAST 10/08/2022 2:16 pm TECHNIQUE: CT of the head was performed without the administration of intravenous contrast. Automated exposure control, iterative reconstruction, and/or weight based adjustment of the mA/kV was utilized to reduce the radiation dose to as low as reasonably achievable. COMPARISON: None. HISTORY: ORDERING SYSTEM PROVIDED HISTORY: altered mentation, and difficulty swallowing TECHNOLOGIST PROVIDED HISTORY: altered mentation, and difficulty swallowing Decision Support Exception - unselect if not a suspected or confirmed emergency medical condition->Emergency Medical Condition (MA) FINDINGS: BRAIN/VENTRICLES: There is no acute intracranial hemorrhage, mass effect, or midline shift. There is satisfactory overall mccormack-white matter differentiation. The ventricular structures are symmetric and unremarkable. The infratentorial structures are unremarkable. ORBITS: The visualized portion of the orbits demonstrate no acute abnormality. SINUSES: The visualized paranasal sinuses and mastoid air cells demonstrate no acute abnormality. SOFT TISSUES/SKULL: No acute abnormality of the visualized skull or soft tissues. IMPRESSION: No acute intracranial abnormality. [facility] Work Phone: Radiology Study observation (narrative) [facility] HERNANDEZ [facility] Work Phone: CT Head WO ContrastOrdered B y: Jay Horn on 10-08-2022 [facility] Work Phone: Comp Metabolic Profon 2022 Albumin [Mass/Vol] 4.4 g/dL Normal 3.5-5.2 [facility] Comment on above: Performed By: #### L IPR #### [address] [address] Bus Cleaner: Jersey Dahl MD #### CDP, CP #### [facility] [address] [place] [address] [place] [address] Bus Cleaner: Kayley Doll MD Albumin/Glob Ratio 1.4 Normal 1.0-2.5 [facility] Comment on above: Performed By: #### L IPR #### [address] [address] Bus Cleaner: Jersey Dahl MD #### CDP, CP #### [facility] [address] [place] [address] Dr. [place] [phone] Bus Cleaner: Kayley Doll MD Alkaline Phos 111 U/L High 35-104 [facility] Comment on above: Performed By: #### L IPR #### [address] [place] [address] Bus Cleaner: Jersey Dahl MD #### CDP, CP #### [facility] [address] [place] [address] Dr. [place], [place] [phone] Bus Cleaner: Kayley Doll MD ALT [Catalytic activity/Vol] 26 U/L Normal 5-33 [facility] Comment on above: Performed By: #### L IPR #### [address] [address] Bus Cleaner: Jersey Dahl MD #### CDP, CP #### [facility] [address] [place] [address] Bus Cleaner: Kayley Doll MD Anion gap [Moles/Vol] 12 mmol/L Normal 9-17 [facility] Comment on above: Performed By: #### L IPR #### [address] [address] Bus Cleaner: Jersey Dhal MD #### CDP, CP #### [facility] [address] [place] [address] Bus Cleaner: Kayley Doll MD AST [Catalytic activity/Vol] 23 U/L Normal <32 [facility] Comment on above: Performed By: #### L IPR #### [address] [address] Bus Cleaner: Jersey Dahl MD #### CDP, CP #### [address] [place], [facility] Bus Cleaner: Kayley Doll MD Bilirubin [Mass/Vol] 0.9 mg/dL Normal 0.3-1.2 [facility] Comment on above: Performed By: #### L IPR #### [address] [address] Bus Cleaner: Jersey Dahl MD #### CDP, CP #### [facility] [address] [place] [address] Dr. [place], [place] [phone] Bus Cleaner: Kayley Doll MD BUN/CRE Ratio 40 High 9-20 [facility] Comment on above: Performed By: #### L IPR #### [address] [address] Bus Cleaner: Jersey Dahl MD #### CDP, CP #### [address] [place], [place] [id number] Bus Cleaner: Kayley Doll MD Calcium [Mass/Vol] 11.3 mg/dL High 8.6-10.4 [facility] Comment on above: Performed By: #### L IPR #### [address] [address] Bus Cleaner: Jersey Dahl MD #### CDP, CP #### [address] [place], [place] 6862883 Bus Cleaner: Kayley Doll MD Chloride [Moles/Vol] 117 mmol/L High 98-107 [facility] Comment on above: Performed By: #### L IPR #### [address] [address] Bus Cleaner: Jersey Dahl MD #### CDP, CP #### [address] [place], [place] [phone] Bus Cleaner: Kayley Doll MD CO2 [Moles/Vol] 29 mmol/L Normal 20-31 [facility] Comment on above: Performed By: #### L IPR #### [address] [address] Bus Cleaner: Jersey Dahl MD #### CDP, CP #### [address] [place], [place] 4995483 Bus Cleaner: Kayley Doll MD Creatinine [Mass/Vol] 0.97 mg/dL High 0.50-0.90 [facility] Comment on above: Performed By: #### L IPR #### [address] [address] Bus Cleaner: Jersey Dahl MD #### CDP, CP #### [address] [place], [place] [phone] Bus Cleaner: Kayley Doll MD GFR/1.73 sq M.predicted luis g non-blacks MDRD (S/P/Bld) [Vol rate/Area] mL/min/{1.73_m2} Normal >60 [facility] Comment on above: Result Comment: These results are not intended for use in patients <18 years of age. eGFR results are calculated without a race factor using the 2020 CKD-EPI equation. Careful clinical correlation is recommended, particularly when comparing to results calculated using previous equations. The CKD-EPI equation is less accurate in patients with extremes of muscle mass, extra-renal metabolism of creatine, excessive creatine ingestion, or following therapy that affects renal tubular secretion. Performed By: #### L IPR #### [address] [address] Bus Cleaner: Jersey Dahl MD #### CDP, CP #### [facility] [address] [place] [address] [place] [address] Bus Cleaner: Kayley Doll MD Glucose [Mass/Vol] 96 mg/dL Normal 70-99 [facility] Comment on above: Performed By: #### L IPR #### [address] [address] Bus Cleaner: Jersey Dahl MD #### CDP, CP #### [facility] [address] [place] [address] [place] [address] Bus Cleaner: Kayley Doll MD Potassium [Moles/Vol] 4.1 mmol/L Normal 3.7-5.3 [facility] Comment on above: Performed By: #### L IPR #### [address] [address] Bus Cleaner: Jersey Dahl MD #### CDP, CP #### [facility] [address] [place] [address] [place] [address] Bus Cleaner: Kayley Doll MD Protein [Mass/Vol] 7.6 g/dL Normal 6.4-8.3 [facility] Comment on above: Performed By: #### L IPR #### [facility] [address] [place] [address] Bus Cleaner: Jersey Dahl MD #### CDP, CP #### [facility] [address] [place] [address] Dr. [place], [place] [phone] Bus Cleaner: Kayley Doll MD Sodium [Moles/Vol] 158 mmol/L High 135-144 [facility] Comment on above: Performed By: #### L IPR #### [address] [place] [address] Bus Cleaner: Jersey Dahl MD #### CDP, CP #### [facility] [address] [place] [address] Dr. [place], [place] [phone] Bus Cleaner: Kayley Doll MD Urea nitrogen [Mass/Vol] 39 mg/dL High 8-23 [facility] Comment on above: Performed By: #### L IPR #### [address] [place] [address] Bus Cleaner: Jersey Dahl MD #### CDP, CP #### [address] [place], [place] [phone] Bus Cleaner: Kayley Doll MD Comprehensive Metabolic Pane [facility] 10-08-2022 Albumin [Mass/Vol] 4.4 g/dL 3.5 - 5.2 g/dL [facility] Albumin/Globulin [Mass ratio] 1.4 {ratio} 1.0 - 2.5 [facility] ALP [Catalytic activity/Vol] 111 U/L High 35 - 104 U/L [facility] ALT [Catalytic activity/Vol] 26 U/L 5 - 33 U/L [facility] Anion gap [Moles/Vol] 12 mmol/L 9 - 17 mmol/L [facility] AST [Catalytic activity/Vol] 23 U/L NINF - 32 U/L [facility] Bilirubin [Mass/Vol] 0.9 mg/dL 0.3 - 1.2 mg/dL [facility] Calcium [Mass/Vol] 11.3 mg/dL High 8.6 - 10.4 mg/dL [facility] Chloride [Moles/Vol] 117 mmol/L High 98 - 107 mmol/L [facility] CO2 [Moles/Vol] 29 mmol/L 20 - 31 mmol/L [facility] Creatinine [Mass/Vol] 0.97 mg/dL High 0.50 - 0.90 mg /dL [facility] GFR/1.73 sq M.predicted MDRD (S/P/Bld) [Vol rate/Area] - PINF [facility] Comment on above: These results are not intended for use in patients <18 years of age. eGFR results are calculated without a race factor using the 2020 CKD-EPI equation. Careful clinical correlation is recommended, particularly when comparing to results calculated using previous equations. The CKD-EPI equation is less accurate in patients with extremes of muscle mass, extra-renal metabolism of creatine, excessive creatine ingestion, or following therapy that affects renal tubular secretion. Glucose [Mass/Vol] 96 mg/dL 70 - 99 mg/dL [facility] Interpretation and review of laboratory results Abnormal [facility] Potassium [Moles/Vol] 4.1 mmol/L 3.7 - 5.3 mmol /L [facility] Protein [Mass/Vol] 7.6 g/dL 6.4 - 8.3 g/dL [facility] Sodium [Moles/Vol] 158 mmol/L High 135 - 144 mmol/L [facility] Urea nitrogen [Mass/Vol] 39 mg/dL High 8 - 23 mg/d L [facility] Urea nitrogen/Creatinine (Bl d) [Mass ratio] 40 High 9 - 20 [facility] Cult,Urineon 10-08-2022 Cult,Urine Specimen Description .VOIDED URINE Culture CITROBACTER FREUNDII >[id number] CFU/ML Report Status FINAL 10/07/2022 SUSCEPTIBILITY Organism CITROBACTER FREUNDII Method TIMOTHY Ceftriaxone <=0.25 SUSCEPTIBLE Gentamicin <=1 SUSCEPTIBLE Levofloxacin 1 SUSCEPTIBLE Nitrofurantoin <=16 SUSCEPTIBLE Piperacillin/Tazobactam <=4 SUSCEPTIBLE Tobramycin <=1 SUSCEPTIBLE Trimethoprim/Sulfa <=20 SUSCEPTIBLE Susceptible [facility] Comment on above: Performed By: #### L IPR #### [facility] [address] [place] [address] Bus Cleaner: Jersey Dahl MD #### CDP, CP #### [facility] [address] [place] [address] Bus Cleaner: Kayley Doll MD EKG 12 LeadOrdered By: Nhan argueta on 10-08-2022 Atrial Rate 57 BPM [facility] Work Phone: P [place] 44 degrees [facility] Work Phone: P-R Interval 144 ms [facility] Work Phone: Q-T Interval 442 ms [facility] Work Phone: QRS Duration 78 ms [facility] Work Phone: QTc Calculation (Bazett) 430 ms [facility] Work Phone: R [place] 35 degrees [facility] Work Phone: T [place] 25 degrees [facility] Work Phone: Ventricular Rate 57 BPM [facility] [employer] Work Phone: [facility] Work Phone: EKG 12 Leadon 10-08-2022 Poor data qualit y, interpretation may be adversely affected Sinus bradycardia Otherwise normal ECG No previous ECGs available Confirmed by Nhan June MD ([id number]) on 10/08/2022 5:02:13 PM [facility] Nhan June MD - 10/08/2022 Poor data quality, interpretation may be adversely affected Sinus bradycardia Otherwise normal ECG No previous ECGs available Confirmed by Nhan June MD ([id number]) on 10/08/2022 5:02:13 PM [facility] Work Phone: Glucose, Whole Bloodon 10-08 Glucose [Mass/Vol] 94 mg/dL 74 - 100 mg/dL [facility] Microscopic Urinalysison Bacteria, UA 3+ Abnormal None [facility] Epithelial Cells UA 0 TO 2 [facility] Interpretation and review of laboratory results Abnormal [facility] RBC clumps Auto (Urine sed) [#/Area] 0 TO 2 [facility] WBC, UA GREATER THAN 100 [facility] UA w/Reflex Cultureon 2022 Bilirubin, SemiQt,Ur Negative Normal NEG [facility] Comment on above: Performed By: #### L IPR #### [address] [address] Bus Cleaner: Jersey Dahl MD #### CDP, CP #### [address] [place] [address] Bus Cleaner: Kayley Doll MD Blood, Urine 1+ Abnormal NEG [facility] Comment on above: Performed By: #### L IPR #### [address] [address] Bus Cleaner: Jersey Dahl MD #### CDP, CP #### [address] [place] [address]678983 Bus Cleaner: Kayley Doll MD Clarity (U) Clear Normal CLEAR [facility] Comment on above: Performed By: #### L IPR #### [address] [address] Bus Cleaner: Jersey Dahl MD #### CDP, CP #### [address] [place] [address] Bus Cleaner: Kayley Doll MD Color (U) Yellow Normal YEL [facility] Comment on above: Performed By: #### L IPR #### [address] [address] Bus Cleaner: Jersey Dahl MD #### CDP, CP #### [address] [place], [place] [phone] Bus Cleaner: Kayley Doll MD Glucose Ql (U) Negative Normal NEG [facility] Comment on above: Performed By: #### L IPR #### [address] [address] Bus Cleaner: Jersey Dahl MD #### CDP, CP #### [address] [place], [place] 555[address] Bus Cleaner: Kayley Doll MD Ketones Ql (U) 2+ Abnormal NEG [facility] Comment on above: Performed By: #### L IPR #### [address] [address] Bus Cleaner: Jersey Dahl MD #### CDP, CP #### [address] [place], [place] [phone] Bus Cleaner: Kayley Doll MD Leukocyte esterase Test strip Ql (U) MODERATE Abnormal NEG [facility] Comment on above: Performed By: #### L IPR #### [address] [address] Bus Cleaner: Jersey Dahl MD #### CDP, CP #### [address] [place], [place] [phone] Bus Cleaner: Kayley Doll MD Nitrite,Ur Positive Abnormal NEG [facility] Comment on above: Performed By: #### L IPR #### [address] [address] Bus Cleaner: Jersey Dahl MD #### CDP, CP #### [address] [place], [place] [id number] Bus Cleaner: Kayley Doll MD PH,Ur 6.0 Normal 5.0-9.0 [facility] Comment on above: Performed By: #### L IPR #### [address] [address] Bus Cleaner: Jersey Dahl MD #### CDP, CP #### [address] [place], [place] 6339083 Bus Cleaner: Kayley Doll MD Protein Ql (U) TRACE Abnormal NEG [facility] Comment on above: Performed By: #### L IPR #### [address] [address] Bus Cleaner: Jersey Dahl MD #### CDP, CP #### [address] [place], [place] 4240383 Bus Cleaner: Kayley Doll MD Spec. [place],Ur >1.030 High 1.010-1.020 [facility] Comment on above: Performed By: #### L IPR #### [address] [address] Bus Cleaner: Jersey Dahl MD #### CDP, CP #### [address] [place], [place] 4512683 Bus Cleaner: Kaylye Doll MD Urobilinogen,Ur Normal Normal NORM [facility] Comment on above: Performed By: #### L IPR #### [address] [address] Bus Cleaner: Jersey Dahl MD #### CDP, CP #### [address] [place] [address] Bus Cleaner: Kayley Doll MD Urinalysis with Reflex to Cu ltureon 10-08-2022 Bilirubin Urine Negative NEGATIVE [facility] Color, UA Yellow Yellow [facility] Glucose Auto test strip (U) [Mass/Vol] Negative NEGATIVE [facility] Interpretation and review of laboratory results Abnormal [facility] Ketones (U) [Mass/Vol] 2+ Abnormal NEGATIVE GIO [facility] Leukocyte esterase Auto test strip Ql (U) MODERATE Abnormal NEGATIVE [facility] Nitrite Auto test strip Ql (U) Positive Abnormal NEGAT [facility] Protein (U) [Mass/Vol] 6.0 mg/dL 5.0 - 9.0 [facility] Protein (U) [Mass/Vol] TRACE Abnormal NEGATIVE [facility] Specific [place], UA High 1.010 - 1.020 B ON [facility] Turbidity UA Clear Clear [facility] Urine Hgb 1+ Abnormal NEGATIVE [facility] Urobilinogen, Urine Normal Normal [facility] Urinalysis,Microon 3 Bacteria 3+ Abnormal NONE [facility] Comment on above: Performed By: #### L IPR #### [address] [id number] Bus Cleaner: Jersey Dahl MD #### CDP, CP #### [address] [place] [address] Bus Cleaner: Kayley Doll MD Epithelial cells LM Ql (Urine sed) 0 TO 2 Normal 0 -25 [facility] Comment on above: Performed By: #### L IPR #### [address] [address] Bus Cleaner: Jersey Dahl MD #### CDP, CP #### [facility] [address] [place] [address] [place] [address] Bus Cleaner: Kayley Doll MD Urine RBC's 0 TO 2 Normal 0-2 [facility] Comment on above: Performed By: #### L IPR #### [address] [address] Bus Cleaner: Jersey Dahl MD #### CDP, CP #### [address] [place] [address] Bus Cleaner: Kalyey Doll MD Urine WBC's GREATER THAN 100 Normal 0-5 [facility] Comment on above: Performed By: #### L IPR #### [address] [address] Bus Cleaner: Jersey Dahl MD #### CDP, CP #### [address] [place] [address] Bus Cleaner: Kayley Doll MD Urinalysis, Routineon 2022 Bilirubin, SemiQt,Ur Negative Normal NEG [facility] Comment on above: Performed By: #### L IPR #### [address] [address] Bus Cleaner: Jersey Dahl MD #### CDP, CP #### [address] [place] [address] Bus Cleaner: Kayley Doll MD Blood, Urine Negative Normal NEG [facility] Comment on above: Performed By: #### L IPR #### [address] [address] Bus Cleaner: Jersey Dahl MD #### CDP, CP #### [facility] [address] [place] [address] [place] [address] Bus Cleaner: Kayley Doll MD Clarity (U) Turbid Abnormal CLEAR [facility] Comment on above: Performed By: #### L IPR #### [address] [address] Bus Cleaner: Jersey Dahl MD #### CDP, CP #### [address] [place] [address] Bus Cleaner: Kayley Doll MD Color (U) Yellow Normal YEL [facility] Comment on above: Performed By: #### L IPR #### [address] [address] Bus Cleaner: Jersey Dahl MD #### CDP, CP #### [address] [place], [place] 5483583 Bus Cleaner: Kayley Doll MD Glucose Ql (U) Negative Normal NEG [facility] Comment on above: Performed By: #### L IPR #### [address] [address] Bus Cleaner: Jersey Dahl MD #### CDP, CP #### [address] [place], [place] [phone] Bus Cleaner: Kayley Doll MD Ketones Ql (U) 1+ Abnormal NEG [facility] Comment on above: Performed By: #### L IPR #### [address] [address] Bus Cleaner: Jersey Dahl MD #### CDP, CP #### [address] [place], [place] [phone] Bus Cleaner: Kayley Doll MD Leukocyte esterase Test strip Ql (U) Negative Normal NEG [facility] Comment on above: Performed By: #### L IPR #### [address] [address] Bus Cleaner: Jersey Dahl MD #### CDP, CP #### [address] [place], [place] 0483583 Bus Cleaner: Kayley Doll MD Nitrite,Ur Positive Abnormal NEG [facility] Comment on above: Performed By: #### L IPR #### [address] [address] Bus Cleaner: Jersey Dahl MD #### CDP, CP #### [address] [place], [place] [phone] Bus Cleaner: Kayley Doll MD PH,Ur 6.0 Normal 5.0-9.0 [facility] Comment on above: Performed By: #### L IPR #### [address] [address] Bus Cleaner: Jersey Dahl MD #### CDP, CP #### [address] [place], [place] 8388583 Bus Cleaner: Kayley Doll MD Protein Ql (U) Negative Normal NEG [facility] Comment on above: Performed By: #### L IPR #### [address] [address] Bus Cleaner: Jersey Dahl MD #### CDP, CP #### [address] [place], [place] [id number] Bus Cleaner: Kayley Doll MD Spec. [place],Ur >1.030 High 1.010-1.020 [facility] Comment on above: Performed By: #### L IPR #### [address] [address] Bus Cleaner: Jersey Dahl MD #### CDP, CP #### [address] [place], [place] [phone] Bus Cleaner: Kayley Doll MD Urobilinogen,Ur Normal Normal NORM [facility] Comment on above: Performed By: #### L IPR #### [address] [address] Bus Cleaner: Jersey Dahl MD #### CDP, CP #### [address] [place], [place] 1865283 Bus Cleaner: Kayley Doll MD Urinalysis,Microon 3 Amorphous sediment LM Ql (Urine sed) 3+ Abnormal NONE [facility] Comment on above: Performed By: #### L IPR #### [address] [address] Bus Cleaner: Jersey Dahl MD #### CDP, CP #### [address] [place] [address]678983 Bus Cleaner: Kayley Doll MD Bacteria 2+ Abnormal NONE [facility] Comment on above: Performed By: #### L IPR #### [address] [address] Bus Cleaner: Jersey Dahl MD #### CDP, CP #### [address] [place] [address]678983 Bus Cleaner: Kayley Doll MD Epithelial cells LM Ql (Urine sed) None Normal 0 -25 [facility] Comment on above: Performed By: #### L IPR #### [address] [address] Bus Cleaner: Jersey Dahl MD #### CDP, CP #### [address] [place] [address]678983 Bus Cleaner: Kayley Doll MD Urine RBC's None Normal 0-2 [facility] Comment on above: Performed By: #### L IPR #### [address] [address] Bus Cleaner: Jersey Dahl MD #### CDP, CP #### [address] [place], [place] [phone] Bus Cleaner: Kayley Doll MD Urine WBC's 0 TO 2 Normal 0-5 [facility] Comment on above: Performed By: #### L IPR #### [facility] [address] [place], [place] [phone] Bus Cleaner: Jersey Dahl MD #### CDP, CP #### [facility] [address] [place] [address] Bus Cleaner: Kayley Doll MD Lipid Panelon 10-05-2022 Cholesterol [Mass/Vol] 199 mg/dL NINF - 200 mg /dL [facility] Comment on above: Cholesterol Guidelines: <200 Desirable 200-240 Borderline >240 Undesirable Cholesterol in HDL [Mass/Vol] 107 mg/dL 40 - P INF mg/dL [facility] Comment on above: HDL Guidelines: <40 Undesirable 40-59 Borderline >59 Desirable Cholesterol in LDL [Mass/Vol] 73 mg/dL 0 - 13 0 mg/dL [facility] Comment on above: LDL Guidelines: <100 Desirable 100-129 Near to/above Desirable 130-159 Borderline >159 Undesirable Direct (measured) LDL and calculated LDL are not interchangeable tests. Cholesterol.total/Cholestero l in HDL [Mass ratio] 1.9 {ratio} NINF - 5 [facility] Triglyceride [Mass/Vol] 93 mg/dL NINF - 150 mg/dL [facility] Comment on above: Triglyceride Guidelines: <150 Desirable 150-199 Borderline 200-499 High >499 Very high Based on AHA Guidelines for fasting triglyceride, March 2012. [facility] Lipid Profileon 10-05-2022 Cholesterol [Mass/Vol] 199 mg/dL Normal <200 [facility] Comment on above: Result Comment: Cholesterol Guidelines: <200 Desirable 200-240 Borderline >240 Undesirable Performed By: #### L IPR #### [facility] [address] [place], [place] 1006108 Bus Cleaner: Jersey Dahl MD #### CDP, CP #### [facility] [address] [place] [address] Bus Cleaner: Kayley Doll MD Cholesterol in HDL [Mass/Vol] 107 mg/dL Normal >40 [facility] Comment on above: Result Comment: HDL Guidelines: <40 Undesirable 40-59 Borderline >59 Desirable Performed By: #### L IPR #### [address] [address] Bus Cleaner: Jersey Dahl MD #### CDP, CP #### [address] [place], [place] 5086683 Bus Cleaner: Kayley Doll MD Cholesterol in LDL [Mass/Vol] 73 mg/dL Normal 0-130 [facility] Comment on above: Result Comment: LDL Guidelines: <100 Desirable 100-129 Near to/above Desirable 130-159 Borderline >159 Undesirable Direct (measured) LDL and calculated LDL are not interchangeable tests. Performed By: #### L IPR #### [address] [address] Bus Cleaner: Jersey Dahl MD #### CDP, CP #### [address] [place] [address]678983 Bus Cleaner: Kayley Doll MD Cholesterol.total/Cholestero l in HDL [Mass ratio] 1.9 {ratio} Normal <5 [facility] Comment on above: Performed By: #### L IPR #### [address] [address] Bus Cleaner: Jersey Dahl MD #### CDP, CP #### [address] [place] [address]678983 Bus Cleaner: Kayley Doll MD Triglyceride [Mass/Vol] 93 mg/dL Normal <150 [facility] [facility] Comment on above: Result Comment: Triglyceride Guidelines: <150 Desirable 150-199 Borderline 200-499 High >499 Very high Based on AHA Guidelines for fasting triglyceride, March 2012. Performed By: #### L IPR #### [address] [address] Bus Cleaner: Jersey Dahl MD #### CDP, CP #### [place] [address] [place] [address] Bus Cleaner: Kayley Doll MD CBC with Auto Differentialon 10-04-2022 Absolute Eos # 0.14 [place] [facility] Absolute Immature Granulocyte [facility] Absolute Lymph # 0.95 Low [facility] Absolute Ciales # 0.50 [facility] Basophils (Bld) [#/Vol] 0.03 10*3/uL [facility] Basophils/100 WBC (Bld) 1 % 0 - 2 % B ON [facility] Eosinophils/100 WBC (Bld) 2 % 1 - 4 % [facility] Hematocrit (Bld) [Volume fraction] 32.9 % Low 36.3 - 47.1 % [facility] Hemoglobin (Bld) [Mass/Vol] 10.5 g/dL Low 11.9 - 1 5.1 g/dL [facility] Immature granulocytes/100 WB C (Bld) 0 % 0 [facility] Interpretation and review of laboratory results Abnormal [facility] Lymphocytes/100 WBC (Bld) 15 % Low 24 - 43 % [facility] MCH (RBC) [Entitic mass] 31.3 pg 25.2 - 33.5 pg [facility] MCHC (RBC) [Mass/Vol] 31.9 g/dL 28.4 - 34.8 g/ dL [facility] MCV (RBC) [Entitic vol] 97.9 fL 82.6 - 102.9 fL [facility] Monocytes/100 WBC (Bld) 8 % 3 - 12 % B ON [facility] NRBC Automated 0.0 0.0 per 100 WBC [facility] S [facility] Platelet distribution width (Bld) [Ratio] 15.6 % High 11.8 - 14.4 % [facility] Platelet mean volume (Bld) [Entitic vol] 9.7 fL 8.1 - 13.5 fL [facility] Platelets (Bld) [#/Vol] 148 10*3/uL [facility] RBC (Bld) [#/Vol] 3.36 10*6/uL Low 3.95 - 5.11 m/uL [facility] Segmented neutrophils/100 WB C (Bld) 74 % High 36 - 65 % [facility] Segs Absolute 4.83 [facility] WBC (Bld) [#/Vol] 6.5 10*3/uL [facility]ON [facility] CBC with Diffon 10-04-2022 Abs. Basophil 0.03 k/uL Normal 0.00-0.20 [facility] Comment on above: Performed By: #### L IPR #### [address] [address] Bus Cleaner: Jersey Dahl MD #### CDP, CP #### [address] [place] [address] Bus Cleaner: Kayley Doll MD Abs.Imm.Granulocyte <0.03 Normal 0.00-0.30 [facility] Comment on above: Performed By: #### L IPR #### [address] [address] Bus Cleaner: Jersey Dahl MD #### CDP, CP #### [address] [place] [phone] Bus Cleaner: Kayley Doll MD Abs.Neutrophil (Seg) 4.83 k/uL Normal 1.50-8.10 [facility] Comment on above: Performed By: #### L IPR #### [address] [address] Bus Cleaner: Jersey Dahl MD #### CDP, CP #### [address] [place] 8678983 Bus Cleaner: Kayley Doll MD Basophils/100 WBC (Bld) 1 % Normal 0-2 [facility] Comment on above: Performed By: #### L IPR #### [address] [address] Bus Cleaner: Jersey Dahl MD #### CDP, CP #### [address] [place] [phone] ( Bus Cleaner: Kayley Doll MD Eosinophils (Bld) [#/Vol] 0.14 10*3/uL Normal 0.00-0.4 4 [facility] Comment on above: Performed By: #### L IPR #### [address] [address] Bus Cleaner: Jersey Dahl MD #### CDP, CP #### [address] [place] [phone] ( Bus Cleaner: Kayley Doll MD Eosinophils/100 WBC (Bld) 2 % Normal 1-4 [facility] Comment on above: Performed By: #### L IPR #### [place] [address] Bus Cleaner: Jersey Dahl MD #### CDP, CP #### [address] [place] [address] Bus Cleaner: Kayley Doll MD Erythrocyte distribution wid th (RBC) [Ratio] 15.6 % High 11.8-14.4 [facility] Comment on above: Performed By: #### L IPR #### [address] [address] Bus Cleaner: Jersey Dahl MD #### CDP, CP #### [address] [place] [phone] ( Bus Cleaner: Kayley Doll MD Hematocrit (Bld) [Volume fraction] 32.9 % Low 3 6.3-47.1 [facility] Comment on above: Performed By: #### L IPR #### [address] [address] Bus Cleaner: Jersey Dahl MD #### CDP, CP #### [facility] [address] [place], [place] [phone] Bus Cleaner: Kayley Doll MD Hemoglobin (Bld) [Mass/Vol] 10.5 g/dL Low 11.9-15. 1 [facility] Comment on above: Performed By: #### L IPR #### [address] [address] Bus Cleaner: Jersey Dahl MD #### CDP, CP #### [address] [place] 8678983 Bus Cleaner: Kayley Doll MD Immature granulocytes/100 WBC (Bld) 0 % Normal 0 [facility] Comment on above: Performed By: #### L IPR #### [address] [address] Bus Cleaner: Jersey Dahl MD #### CDP, CP #### [address] [place] [address]678983 Bus Cleaner: Kayley Doll MD Lymphocytes (Bld) [#/Vol] 0.95 10*3/uL Low 1.10-3.7 0 [facility] Comment on above: Performed By: #### L IPR #### [address] [address] Bus Cleaner: Jersey Dahl MD #### CDP, CP #### [facility] [address] [place] [address] Dr. [place] [phone] Bus Cleaner: Kayley Doll MD Lymphocytes/100 WBC (Bld) 15 % Low 24-43 [facility] Comment on above: Performed By: #### L IPR #### [address] [address] Bus Cleaner: Jersey Dahl MD #### CDP, CP #### [facility] [place], [place] [phone] Bus Cleaner: Kayley Doll MD MCH (RBC) [Entitic mass] 31.3 pg Normal 25.2-33.5 [facility] Comment on above: Performed By: #### L IPR #### [address] [phone] Bus Cleaner: Jersey Dahl MD #### CDP, CP #### [address] [place] [phone] Bus Cleaner: Kayley Doll MD MCHC (RBC) [Mass/Vol] 31.9 g/dL Normal 28.4-34.8 [facility] Comment on above: Performed By: #### L IPR #### [address] [address] Bus Cleaner: Jersey Dahl MD #### CDP, CP #### [address] [place] [phone] Bus Cleaner: Kayley Doll MD MCV (RBC) [Entitic vol] 97.9 fL Normal 82.6-102.9 [facility] Comment on above: Performed By: #### L IPR #### [address] [address] Bus Cleaner: Jersey Dahl MD #### CDP, CP #### [address] [place] [address]678983 Bus Cleaner: Kayley Doll MD Monocytes (Bld) [#/Vol] 0.50 10*3/uL Normal 0.10-1.20 [facility] Comment on above: Performed By: #### L IPR #### [address] [address] Bus Cleaner: Jersey Dahl MD #### CDP, CP #### [address] [place] [phone] Bus Cleaner: Kayley Doll MD Monocytes/100 WBC (Bld) 8 % Normal 3-12 [facility] Comment on above: Performed By: #### L IPR #### [place] [address] [place] [address] Bus Cleaner: Jersey Dahl MD #### CDP, CP #### [address] [place], [place] 9465083 Bus Cleaner: Kayley Doll MD Neutrophil (Seg) 74 % High 36-65 [facility] Comment on above: Performed By: #### L IPR #### [address] [address] Bus Cleaner: Jersey Dahl MD #### CDP, CP #### [address] [place] [phone] Bus Cleaner: Kayley Doll MD NRBC Automated 0.0 per 100 WBC Normal 0.0 [facility] Comment on above: Performed By: #### L IPR #### [address] [address] Bus Cleaner: Jersey Dahl MD #### CDP, CP #### [address] [place] [phone] Bus Cleaner: Kayley Doll MD Platelet mean volume (Bld) [Entitic vol] 9.7 fL Normal 8.1-13.5 [facility] Comment on above: Performed By: #### L IPR #### [address] [address] Bus Cleaner: Jersey Dahl MD #### CDP, CP #### [address] [place], [place] [phone] Bus Cleaner: Kayley Doll MD Platelets (Bld) [#/Vol] 148 10*3/uL Normal 138-453 [facility] Comment on above: Performed By: #### L IPR #### [facility] [address] [place] [address] Bus Cleaner: Jersey Dahl MD #### CDP, CP #### [facility] [address] [place], [place] [phone] Bus Cleaner: Kayley Doll MD RBC (Bld) [#/Vol] 3.36 10*6/uL Low 3.95-5.11 [facility] Comment on above: Performed By: #### L IPR #### [facility] [address] [place] [address] Bus Cleaner: Jersey Dahl MD #### CDP, CP #### [facility] [address] [place] [address] [place], [place] [phone] Bus Cleaner: Kayley Doll MD WBC (Bld) [#/Vol] 6.5 10*3/uL Normal 3.5-11.3 [facility] Comment on above: Performed By: #### L IPR #### [facility] [address] [place] [address] Bus Cleaner: Jersey Dahl MD #### CDP, CP #### [facility] [address] [place] [address] [place], [place] [phone] Bus Cleaner: Kayley Doll MD Comp Metabolic Profon 2022 Albumin [Mass/Vol] 3.9 g/dL Normal 3.5-5.2 [facility] Comment on above: Performed By: #### L IPR #### [facility] [address] [place] [address] Bus Cleaner: Jersey Dahl MD #### CDP, CP #### [facility] [address] [place] [address] [place], [place] [phone] Bus Cleaner: Kayley Doll MD Albumin/Glob Ratio 1.1 Normal 1.0-2.5 [facility] Comment on above: Performed By: #### L IPR #### [address] [address] Bus Cleaner: Jersey Dhal MD #### CDP, CP #### [facility] [address] [place], [place] [phone] Bus Cleaner: Kayley Doll MD Alkaline Phos 99 U/L Normal 35-104 [facility] Comment on above: Performed By: #### L IPR #### [address] [address] Bus Cleaner: Jersey Dahl MD #### CDP, CP #### [facility] [address] [place] [address] Dr. [place], [place] [phone] Bus Cleaner: Kayley Doll MD ALT [Catalytic activity/Vol] 27 U/L Normal 5-33 [facility] Comment on above: Performed By: #### L IPR #### [address] [address] Bus Cleaner: Jersey Dahl MD #### CDP, CP #### [address] [place], [place] [phone] Bus Cleaner: Kayley Doll MD Anion gap [Moles/Vol] 10 mmol/L Normal 9-17 [facility] Comment on above: Performed By: #### L IPR #### [address] [address] Bus Cleaner: Jersey Dahl MD #### CDP, CP #### [facility] [address] [place], [place] [phone] Bus Cleaner: Kayley Doll MD AST [Catalytic activity/Vol] 21 U/L Normal <32 [facility] Comment on above: Performed By: #### L IPR #### [address] [address] Bus Cleaner: Jersey Dahl MD #### CDP, CP #### [facility] [address] [place], [place] [phone] Bus Cleaner: Kayley Doll MD Bilirubin [Mass/Vol] 1.0 mg/dL Normal 0.3-1.2 [facility] Comment on above: Performed By: #### L IPR #### [address] [address] Bus Cleaner: Jersey Dahl MD #### CDP, CP #### [address] [place], [place] [phone] Bus Cleaner: Kayley Doll MD BUN/CRE Ratio 40 High 9-20 [facility] Comment on above: Performed By: #### L IPR #### [address] [address] Bus Cleaner: Jersey Dahl MD #### CDP, CP #### [address] [place], [place] [phone] Bus Cleaner: Kayley Doll MD Calcium [Mass/Vol] 10.9 mg/dL High 8.6-10.4 [facility] Comment on above: Performed By: #### L IPR #### [address] [address] Bus Cleaner: Jersey Dahl MD #### CDP, CP #### [address] [place], [place] [phone] Bus Cleaner: Kayley Doll MD Chloride [Moles/Vol] 110 mmol/L High 98-107 [facility] Comment on above: Performed By: #### L IPR #### [address] [address] Bus Cleaner: Jersey Dahl MD #### CDP, CP #### [address] [place], [place] [phone] Bus Cleaner: Kayley Doll MD CO2 [Moles/Vol] 30 mmol/L Normal 20-31 [facility] Comment on above: Performed By: #### L IPR #### [facility] [address] [place] [address] Bus Cleaner: Jersey Dahl MD #### CDP, CP #### [address] [place], [place] [phone] Bus Cleaner: Kayley Doll MD Creatinine [Mass/Vol] 0.99 mg/dL High 0.50-0.90 [facility] Comment on above: Performed By: #### L IPR #### [address] [address] Bus Cleaner: Jersey Dahl MD #### CDP, CP #### [address] [place] [address] Bus Cleaner: Kayley Doll MD GFR/1.73 sq M.predicted luis g non-blacks MDRD (S/P/Bld) [Vol rate/Area] mL/min/{1.73_m2} Normal >60 [facility] Comment on above: Result Comment: These results are not intended for use in patients <18 years of age. eGFR results are calculated without a race factor using the 2020 CKD-EPI equation. Careful clinical correlation is recommended, particularly when comparing to results calculated using previous equations. The CKD-EPI equation is less accurate in patients with extremes of muscle mass, extra-renal metabolism of creatine, excessive creatine ingestion, or following therapy that affects renal tubular secretion. Performed By: #### L IPR #### [place] [address] [place] [address] Bus Cleaner: Jersey Dahl MD #### CDP, CP #### [facility] [address] [place], [place] [phone] Bus Cleaner: Kayley Doll MD Glucose [Mass/Vol] 80 mg/dL Normal 70-99 [facility] Comment on above: Performed By: #### L IPR #### [facility] [address] [place] [address] Bus Cleaner: Jersey Dahl MD #### CDP, CP #### [facility] [address] [place], [place] [phone] Bus Cleaner: Kayley Doll MD Potassium [Moles/Vol] 3.5 mmol/L Low 3.7-5.3 [facility] Comment on above: Performed By: #### L IPR #### [address] [address] Bus Cleaner: Jersey Dahl MD #### CDP, CP #### [facility] [address] [place] [address] Dr. [place], [place] [phone] Bus Cleaner: Kayley Doll MD Protein [Mass/Vol] 7.4 g/dL Normal 6.4-8.3 [facility] Comment on above: Performed By: #### L IPR #### [address] [address] Bus Cleaner: Jersey Dahl MD #### CDP, CP #### [facility] [address] [place] [address] Dr. [place], [place] [phone] Bus Cleaner: Kayley Doll MD Sodium [Moles/Vol] 150 mmol/L High 135-144 [facility] Comment on above: Performed By: #### L IPR #### [address] [address] Bus Cleaner: Jersey Dahl MD #### CDP, CP #### [facility] [address] [place] [address] Dr. [place], [place] [phone] Bus Cleaner: Kayley Doll MD Urea nitrogen [Mass/Vol] 40 mg/dL High 8-23 [facility] Comment on above: Performed By: #### L IPR #### [address] [place] [address] Bus Cleaner: Jersey Dahl MD #### CDP, CP #### [facility] [address] [place] [address] Bus Cleaner: Kayley Doll MD Comprehensive Metabolic Pane [facility] 10-04-2022 Albumin [Mass/Vol] 3.9 g/dL 3.5 - 5.2 g/dL [facility] Albumin/Globulin [Mass ratio] 1.1 {ratio} 1.0 - 2.5 [facility] ALP [Catalytic activity/Vol] 99 U/L 35 - 104 U/L [facility] ALT [Catalytic activity/Vol] 27 U/L 5 - 33 U/L [facility] Anion gap [Moles/Vol] 10 mmol/L 9 - 17 mmol/L [facility] AST [Catalytic activity/Vol] 21 U/L NINF - 32 U/L [facility] Bilirubin [Mass/Vol] 1.0 mg/dL 0.3 - 1.2 mg/dL [facility] Calcium [Mass/Vol] 10.9 mg/dL High 8.6 - 10.4 mg/dL [facility] Chloride [Moles/Vol] 110 mmol/L High 98 - 107 mmol/L [facility] CO2 [Moles/Vol] 30 mmol/L 20 - 31 mmol/L [facility] Creatinine [Mass/Vol] 0.99 mg/dL High 0.50 - 0.90 mg /dL [facility] GFR/1.73 sq M.predicted MDRD (S/P/Bld) [Vol rate/Area] - PINF [facility] Comment on above: These results are not intended for use in patients <18 years of age. eGFR results are calculated without a race factor using the 2020 CKD-EPI equation. Careful clinical correlation is recommended, particularly when comparing to results calculated using previous equations. The CKD-EPI equation is less accurate in patients with extremes of muscle mass, extra-renal metabolism of creatine, excessive creatine ingestion, or following therapy that affects renal tubular secretion. Glucose [Mass/Vol] 80 mg/dL 70 - 99 mg/dL [facility] Interpretation and review of laboratory results Abnormal [facility] Potassium [Moles/Vol] 3.5 mmol/L Low 3.7 - 5.3 mmol /L [facility] Protein [Mass/Vol] 7.4 g/dL 6.4 - 8.3 g/dL [facility] Sodium [Moles/Vol] 150 mmol/L High 135 - 144 mmol/L [facility] Urea nitrogen [Mass/Vol] 40 mg/dL High 8 - 23 mg/d L [facility] Urea nitrogen/Creatinine (Bl d) [Mass ratio] 40 High 9 - 20 [facility] Thyroxine T4on 10-04-2022 T4 [Mass/Vol] 10.7 ug/dL Normal 4.5-10.9 [facility] Comment on above: Performed By: #### L IPR #### [address] [address] Bus Cleaner: Jersey Dahl MD #### CDP, CP #### [facility] [address] [place] [address] Bus Cleaner: Kayley Doll MD Triiodothyronine T3on 2022 Triiodothyronine T3 63 ng/dL Normal 60-181 [facility] Comment on above: Performed By: #### L IPR #### [address] [address] Bus Cleaner: Jersey Dahl MD #### CDP, CP #### [facility] [address] [place] [address] Bus Cleaner: Kayley Doll MD T3, Freeon 10-03-2022 Free T3 [Mass/Vol] 1.96 pg/mL Low 2.02-4.43 [facility] Comment on above: Performed By: #### L IPR #### [address] [address] Bus Cleaner: Jersey Dahl MD #### CDP, CP #### [facility] [address] [place] [address] [place] [address] Bus Cleaner: Kayley Doll MD TSHon 10-03-2022 TSH Qn 0.39 m[IU]/L [facility] Thyroid Stim. Horm.on 2022 Thyroid Stim. Horm. 0.39 uIU/mL Normal 0.30-5.00 [facility] Comment on above: Performed By: #### T 4, FT4, T3, FT3 #### [address] [phone] Bus Cleaner: Jersey Dahl MD #### TSH #### [facility] [address] [place] [address] Dr. [place] [phone] Bus Cleaner: Kayley Doll MD Thyroxine, Freeon 10-03-2022 Thyroxine, Free 1.5 ng/dL Normal 0.9-1.7 [facility] Comment on above: Performed By: #### L IPR #### [address] [phone] Bus Cleaner: Jersey Dahl MD #### CDP, CP #### [facility] [address] [place] [address] [place] [address] Bus Cleaner: Kayley Doll MD ACETAMINOPHENon 09-28-2022 Acetaminophen [Mass/Vol] ug/mL Critically low 10.0-30 .0 [facility] Comment on above: Performed By: #### S ALYC, ACET, ETH ####[facility] [address] [place] [address] Soniya Alon BNPon 09-28-2022 Natriuretic peptide B (Bld) [Mass/Vol] 70.0 pg/mL Normal <=900.0 [facility] Comment on above: Performed By: #### T SH, CMP, BNP, CMADM ####[facility] [address] [place] [address]Dr. Soniya Chi CARDIAC HAYDER ADMITon 023 CK [Catalytic activity/Vol] 19 U/L Critically low 26-1 92 [facility] Comment on above: Performed By: #### T SH, CMP, BNP, CMADM ####[facility] [address] [place] [address]Dr. Soniya Chi CK.MB [Mass/Vol] 1.97 ng/mL Normal <=3.60 [facility] Comment on above: Performed By: #### T SH, CMP, BNP, CMADM ####[facility] [address] [place], [place] [address]Dr. Soniya Chi HSTROP 16.3 pg/mL Normal 4.0-51.3 [facility] Comment on above: Result Comment: CUT- OFF POINTS HAVE BEEN ESTABLISHED BASED ON THE FOURTH UNIVERSAL DEFINITIONS OF MYOCARDIALINFARCTION. THE UPPER REFERENCE LIMIT (URL) OF TROPONIN, DEFINED THE 99TH PERCENTILE OFcTnI DISTRIBUTION IN A REFERENCE POPULATION, HAS BEEN CONFIRMED THE DECISION THRESHOLDFOR DC DIAGNOSIS. Performed By: #### T SH, CMP, BNP, CMADM ####[facility] [address] [place], [place] [address]Dr. Soniya Chi PALMIRA 68 ng/mL Normal 9-82 [facility] Comment on above: Performed By: #### T SH, CMP, BNP, CMADM ####[facility] [address] [place], [place] [address]Dr. Soniya Chi CBC AUTO DIFFon 09-28-2022 BASO # 0.0 103/ul Normal 0.0-0.1 [facility] Comment on above: Performed By: #### C BC ####[facility] [address] [place], [place] [address]Dr. Soniya Alon Basophils/100 WBC (Bld) 0.2 % Normal 0.2-2.0 [facility] Comment on above: Performed By: #### C BC ####[facility] [address] [place], [place] [address]Dr. Soniya Chi EO # 0.0 103/ul Normal 0.0-0.7 [facility] Comment on above: Performed By: #### C BC ####[facility] [address] [place], [place] [address]Dr. Soniya Chi Eosinophils/100 WBC (Bld) 0.3 % Critically low 0.9-7. 0 [facility] Comment on above: Performed By: #### C BC ####[facility] [address] [place], [place] [address]Dr. Soniya Chi Erythrocyte distribution wid th (RBC) [Ratio] 15.8 % Critically high 11.0-15.0 [facility] pitdc Comment on above: Performed By: #### C BC ####[facility] [address] [place], [place] [address]Dr. Soniya Chi Hematocrit (Bld) [Volume fraction] 30.1 % Critically low 36.0-48.0 [facility] Comment on above: Performed By: #### C BC ####[facility] [address] [place], [place] [address]Dr. Soniya Chi Hemoglobin (Bld) [Mass/Vol] 9.9 g/dL Critically low 12.0 -16.0 [facility] Comment on above: Performed By: #### C BC ####[facility] [address] [place], [place] [address]Dr. Soniya Chi IG # 0.02 10e3/ul Normal 0.00-0.03 [facility] Comment on above: Performed By: #### C BC ####[facility] [address] [place], [place] [address]Dr. Soniya Chi IG % 0.2 % Normal 0.0-0.5 [facility] ostal Comment on above: Performed By: #### C BC ####[facility] [address] [place], [place] [address]Dr. Gypsyjuan Chi LYMPH # 0.5 103/ul Critically low 1.2-3.8 [facility] Comment on above: Performed By: #### C BC ####[facility] [address] [place], [place] [address]Dr. Soniya Chi Lymphocytes/100 WBC (Bld) 5.2 % Critically low 20.5-6 0.0 [facility] Comment on above: Performed By: #### C BC ####[facility] [address] [place] [address]Dr. Gypsyjuan Chi MANUAL DIFF REQ NO Normal [facility] Comment on above: Performed By: #### C BC ####[facility] [address] [place] [address]Dr. Gypsyjuan Chi MCH (RBC) [Entitic mass] 31.2 pg Normal 26.7-34.0 [facility] Comment on above: Performed By: #### C BC ####[facility] [address] [place] [address]Dr. Gypsyjuan Alon MCHC (RBC) [Mass/Vol] 32.9 g/dL Normal 29.9-35.2 [facility] Comment on above: Performed By: #### C BC ####[facility] [address] [place] [address]Dr. Soniya Chi MCV (RBC) [Entitic vol] 95.0 fL Normal 81.0-99.0 [facility] Comment on above: Performed By: #### C BC ####[facility] [address] [place] [address]Dr. Soniya Chi MONO # 0.5 103/ul Normal 0.3-0.8 [facility] Comment on above: Performed By: #### C BC ####[facility] [address] [place] [address]Dr. Soniya Chi Monocytes/100 WBC (Bld) 4.6 % Normal 1.7-12.0 [facility] Comment on above: Performed By: #### C BC ####[facility] [address] [place] [address]Dr. Soniya Chi NEUT # 8.9 103/ul Critically high 1.4-6.5 The [facility] Comment on above: Performed By: #### C BC ####[facility] R[address]rruhhk[address] [place] [address]Dr. Soniya Chi Neutrophils/100 WBC (Bld) 89.5 % Critically high 43.0- 75.0 The [facility] Comment on above: Performed By: #### C BC ####[facility] [address] [place] [address]Dr. Soniya Chi Platelet mean volume (Bld) [Entitic vol] 9.9 fL Normal 9.5-13.5 The [facility] Comment on above: Performed By: #### C BC ####[facility] [address]lyleoln[address] [place] [address]Dr. Soniya Chi PLT 163 103/ul Normal 150-450 The [facility] Comment on above: Performed By: #### C BC ####[facility] Otqyn[address]zfnv[address] [place], [place] [address]Dr. Soniya Chi RBC 3.17 106/ul Critically low 4.20-5.40 The [facility] Comment on above: Performed By: #### C BC ####[facility] X[address]tke[address] [place] [address]Dr. Soniya Chi WBC 9.9 103/ul Normal 4.0-11.0 The [facility] Comment on above: Performed By: #### C BC ####[facility] H[address] [place], [place] [address]Dr. Soniya Chi CT HEAD WO CONon 09-28-2022 CT HEAD WO CON Normal [facility] CULTURE BLOODon 09-28-2022 Microscopic examination of blood, culture Culture Observations: NO GROWTH AT 5 DAYS. Normal [facility] Comment on above: Performed By: #### B LDCX2 ####[facility] D[address]weoog[address] [place] [address]Dr. Soniya Chi Microscopic examination of blood, culture Culture Observations: NO GROWTH AT 5 DAYS. Normal [facility] Comment on above: Performed By: #### B LDCX1 ####[facility] Yrdsiyyawt[address] [place], [place] [address]Dr. Soniya Alon Covid-19 PCR (CVDTBH)on 09-01 SARS-CoV-2 (COVID-19) RNA DORIAN+probe Ql (Unsp spec) Not detected Normal NOT DETECTED The [facility] Comment on above: Result Comment: This test is not yet approved or cleared by the [place] FDA. When there are no FDA-approved or cleared tests available, and other criteria are met, FDA can make tests available under an emergency access mechanism called an Emergency Use Authorization (EUA). The EUA for this test is supported by the Electroplater Helper of Health and Human Service's (HHS's) declaration that circumstances exist to justify the emergency use of in vitro diagnostics for the detection and/or diagnosis of the virus that causes COVID-19. This EUA will remain in effect (meaning this test can be used) for the duration of the COVID-19 declaration justifying emergency of IVDs, unless it is terminated or revoked by FDA (after which the test may no longer be used).When diagnostic testing is negative, the possibility of a false negative should be considered inthe context of a patient's recent exposures and the presence of clinical signs and symptomsconsistent with SARS-CoV-2. Performed By: #### C VDTBH ####[facility] Hriinxofon[address] [place], [place] [address]Dr. Soniya Chi DRUG SCREEN RAPID (URINE)on 09-28-2022 AMP Negative Normal NEGATIVE [facility] Comment on above: Performed By: #### D RUGRPD ####[facility] Scsmrlttcb[address] [place], [place] [address]Dr. Soniya Chi BAR Negative Normal NEGATIVE [facility] Comment on above: Performed By: #### D RUGRPD ####[facility] Abbvfnrpxi[address] [place] [address]Dr. Soniya Chi BUP Negative Normal NEGATIVE [facility] Comment on above: Performed By: #### D RUGRPD ####[facility] Osbulwegqr[address] [address]Dr. Soniya Chi BZO Negative Normal NEGATIVE [facility] Comment on above: Performed By: #### D RUGRPD ####[facility] Raskpfybmz[address] [place], [place] [address]Dr. Soniya Chi MARIAH Negative Normal NEGATIVE The [facility] Comment on above: Performed By: #### D RUGRPD ####[facility] Bhdrukqgkt[address] [place], [place] [address]Dr. Soniya Chi CUT-OFFS SEE BELOW Normal [facility] Comment on above: Result Comment: AMP (Amphetamine): 500ng/mL, BAR (Barbituates): 200 ng/mL, BZO (Benzodiazepines): 150 ng/mL, BUP (Buprenorphine): 10 ng/mL, MARIAH (Cocaine): 150 ng/mL, mAMP (Methamphetamine): 500 ng/mL, MTD (Methadone): 200 ng/mL, OPI (Opiates): 100 ng/mL, OXY (Oxycodone): 100 ng/mL, PCP (Phencyclidine): 25 ng/mL, PPX (Propoxyphene): 300 ng/mL, THC (Cannabinoids): 50 ng/mL, TCA (Trycyclic Antidepressants): 300 ng/mL Performed By: #### D RUGRPD ####[facility] Fhizszrgip[address] [place], [place] [address]Dr. Gypsyjuan Chi DRUG CUT HEADER DRUG CLASS TEST SYST EM CUT-OFF CONCENTRATIONS ARE FOLLOWS: Normal The [facility] Comment on above: Performed By: #### D RUGRPD ####[facility] Wllmrjlxeo[address] [place], [place] [address]Dr. Soniya Chi mAMP Negative Normal NEGATIVE The [facility] Comment on above: Performed By: #### D RUGRPD ####[facility] Rpuzoohpuc[address] [place], [place] [address]Dr. Soniya Chi MTD Negative Normal NEGATIVE [facility] Comment on above: Performed By: #### D RUGRPD ####[facility] Qtmbfoxvun647[address] [place], [place] [address]Dr. Soniya Chi OPI Negative Normal NEGATIVE [facility] Comment on above: Performed By: #### D RUGRPD ####[facility] Brsujqvnzy[address] [place], [place] [address]Dr. Soniya Chi OXY Negative Normal NEGATIVE [facility] Comment on above: Performed By: #### D RUGRPD ####[facility] Twvfurzojy[address] [place], [place] [address]Dr. Soniya Chi PCP Negative Normal NEGATIVE [facility] Comment on above: Performed By: #### D RUGRPD ####[facility] Pyvtykxlhd[address] [place], [place] [address]Dr. Soniya Chi PPX Negative Normal NEGATIVE [facility] Comment on above: Performed By: #### D RUGRPD ####[facility] Uuvrexlnrp[address] [place], [place] [address]Dr. Soniya Chi TCA Negative Normal NEGATIVE [facility] Comment on above: Performed By: #### D RUGRPD ####[facility] Vuehywpawe[address] [place], [place] [address]Dr. Soniya Chi THC Negative Normal NEGATIVE [facility] Comment on above: Performed By: #### D RUGRPD ####[facility] Edrpdynfif99[address] [place], [place] [address]Dr. Soniya Chi ER URINE PROFILEon 3 Bilirubin Ql (U) Negative Normal NEGATIVE The [facility] Comment on above: Performed By: #### E RUR ####[facility] Xrdrvftiot[address] [place], [place] [address]Dr. Soniya Chi Clarity (U) CLEAR Normal CLEAR The [facility] Comment on above: Performed By: #### E RUR ####[facility] Pszebujsho[address] [place], [place] [address]Dr. Soniya Chi Color (U) LT. YELLOW Normal YELLOW [facility] Comment on above: Performed By: #### E RUR ####[facility] Qrygjyvxmg[address] [place], [place] [address]Dr. Soniya Chi ERUAHD A micrscopic examina tion will be performed if indicated. Normal The [facility] l Comment on above: Performed By: #### E RUR ####[facility] U[address]mbe[address]qt[address] [place], [place] [address]Dr. Soniya Chi Glucose Ql (U) Negative Normal NEGATIVE The [facility] Comment on above: Performed By: #### E RUR ####[facility] Xpiamiwvln[address] [place], [place] [address]Dr. Soniya Chi Hemoglobin Ql (U) Negative Normal NEGATIVE The [facility] Comment on above: Performed By: #### E RUR ####[facility] Rcsdveaanc[address] [place], [place] [address]Dr. Gypsyjuan Alon Ketones Ql (U) Negative Normal NEGATIVE The [facility] Comment on above: Performed By: #### E RUR ####[facility] Nelsemsdor[address] [place], [place] [address]Dr. Soniya Chi LEUKOCYTES Negative Normal NEGATIVE The [facility] Comment on above: Performed By: #### E RUR ####[facility] Azgokezhyv[address] [place], [place] [address]Dr. Soniya Chi Nitrite Ql (U) Negative Normal NEGATIVE [facility] Comment on above: Performed By: #### E RUR ####[facility] Bifoehpeke[address] [place], [place] [address]Dr. Soniya Chi pH (U) 5.0 [pH] Normal 5-9 The [facility] Comment on above: Performed By: #### E RUR ####[facility] Waorzgumtt[address] [place], [place] [address]Dr. Soniya Alon SPEC GRAVITY 1.025 Normal 1.005-<=1.025 The [facility] Comment on above: Performed By: #### E RUR ####[facility] Eewxvjplys[address] [place], [place] [address]Dr. Soniya Chi UA PROTEIN Negative Normal NEGATIVE/ TRACE The [facility] Comment on above: Performed By: #### E RUR ####[facility] Twpdnbnfok[address] [place], [place] [address]Dr. Soniya Chi UR MICRO IND NOT INDICATED Normal The [facility] Comment on above: Performed By: #### E RUR ####[facility] Xloouwtjac[address] [place], [place] [address]Dr. Soniya Chi Urobilinogen Qn (U) 0.2 {Casimiro'U}/dL Normal 0.2 - 1. 0 The [facility] Comment on above: Performed By: #### E RUR ####[facility] [address] [place] [address]Dr. Soniya Chi ETHANOL (BLD ALC)on 09-29-19 23 ALC NOTE NOTE: 80 mg/dl is th e legal limit for a blood alcohol level Normal The [facility] Comment on above: Performed By: #### S LYNNE ACET, ETH ####[facility] [address] [place] [address]Dr. Soniya Chi Ethanol [Mass/Vol] mg/dL Normal The [facility] Comment on above: Performed By: #### S LYNNE ACET, ETH ####[facility] Ofjffrntzb[address] [place] [address]Dr. Soniya Chi FREE T3on 09-28-2022 FREE T3 2.81 pg/mlL Normal 2.18-3.98 [facility] Comment on above: Performed By: #### F T3 ####[facility] Tamoxbtdzh[address] [place], [place] [address]Dr. Soniya Chi LACTATE/LACTIC ACIDon 2022 Lactate [Moles/Vol] 0.6 mmol/L Normal 0.4-2.[address] [facility] Comment on above: Performed By: #### L ACT ####[facility] Tafirftbrf[address] [place], [place] [address]Dr. Soniya Chi PROF 14(COMP METB)on 023 Albumin [Mass/Vol] 3.4 g/dL Normal 3.4-5.0 The [facility] Comment on above: Performed By: #### T SH, CMP, BNP, CMADM ####[facility] Ggzyetfqft[address] [place], [place] [address]Dr. Soniya Chi Albumin/Globulin [Mass ratio] 0.9 {ratio} Normal The [facility] Comment on above: Performed By: #### T SH, CMP, BNP, CMADM ####[facility] Lxdtsxogvl[address] [place], [place] [address]Dr. Soniya Chi ALP [Catalytic activity/Vol] 113 U/L Normal 46-116 The [facility] Comment on above: Performed By: #### T SH, CMP, BNP, CMADM ####[facility] Dan[address]jtavs[address] [place] [address]Dr. Soniya Chi ALT [Catalytic activity/Vol] 37 U/L Normal 14-59 [facility] Comment on above: Performed By: #### T SH, CMP, BNP, CMADM ####[facility] X[address]noti[address] [place] [address]Dr. Soniya Chi Anion gap [Moles/Vol] 11.6 mmol/L Normal [facility] Comment on above: Performed By: #### T SH, CMP, BNP, CMADM ####[facility] T[address]ryupigr[address] [place] [address]Dr. Soniya Chi AST [Catalytic activity/Vol] 19 U/L Normal 15-37 [facility] Comment on above: Performed By: #### T SH, CMP, BNP, CMADM ####[facility] Oks[address]na[address] [place] [address]Dr. Soniya Chi Bilirubin [Mass/Vol] 0.4 mg/dL Normal 0.2-1.0 [facility] Comment on above: Performed By: #### T SH, CMP, BNP, CMADM ####[facility] Ap[address]sl[address]cs[address] [place] [address]Dr. Soniya Chi Calcium [Mass/Vol] 10.1 mg/dL Normal 8.5-10.1 [facility] Comment on above: Performed By: #### T SH, CMP, BNP, CMADM ####[facility] [address]lbj[address] [place] [address]Dr. Soniya Chi Chloride [Moles/Vol] 107 mmol/L Normal 98-107 [facility] Comment on above: Performed By: #### T SH, CMP, BNP, CMADM ####[facility] V[address]qoxjb[address] [place] [address]Dr. Soniya Chi CO2 [Moles/Vol] 29.9 mmol/L Normal 21.0-32.0 The [facility] Comment on above: Performed By: #### T SH, CMP, BNP, CMADM ####[facility] Mbiqslvndu[address] [place] [address]Dr. Soniya Chi Creatinine [Mass/Vol] 1.11 mg/dL Critically high 0.55-1.02 [facility] Comment on above: Performed By: #### T SH, CMP, BNP, CMADM ####[facility] [address] [place] [address]Dr. Soniya Chi EGFR-AF SRI LANKAN 59 mL/min/1.73m2 Critically low >=60 The [facility] Comment on above: Performed By: #### T SH, CMP, BNP, CMADM ####[facility] Ry[address]ysjoqo[address] [place] [address]Dr. Soniya Chi EGFR-NON AF SRI LANKAN 49 mL/min/1.73m2 Critically low >=60 The [facility] Comment on above: Performed By: #### T SH, CMP, BNP, CMADM ####[facility] Afvrojtlzh[address] [place] [address]Dr. Soniya Chi Globulin (S) [Mass/Vol] 4.0 g/dL Normal [facility] Comment on above: Performed By: #### T SH, CMP, BNP, CMADM ####[facility] Rsmyolugbm[address] [place] [address]Dr. Soniya Chi Glucose [Mass/Vol] 89 mg/dL Normal 74-106 The [facility] Comment on above: Performed By: #### T SH, CMP, BNP, CMADM ####[facility] Zesxpudzlf[address] [place] [address]Dr. Soniya Chi Potassium [Moles/Vol] 4.5 mmol/L Normal 3.5-5.1 The [facility] Comment on above: Performed By: #### T SH, CMP, BNP, CMADM ####[facility] Brqzgiecid[address] [place] [address]Dr. Soniya Chi Protein [Mass/Vol] 7.4 g/dL Normal 6.4-8.2 The [facility] Comment on above: Performed By: #### T SH, CMP, BNP, CMADM ####[facility] Kxd[address]xgaxyp[address] [place] [address]Dr. Soniya Chi Sodium [Moles/Vol] 144 mmol/L Normal 136-145 [facility] Comment on above: Performed By: #### T SH, CMP, BNP, CMADM ####[facility] Apetovhlci[address] [place] [address]Dr. Soniya Chi Urea nitrogen [Mass/Vol] 19.0 mg/dL Critically high 7.0-18 .0 [facility] Comment on above: Performed By: #### T SH, CMP, BNP, CMADM ####[facility] Zietdgqxvl[address] [place], [place] [address]Dr. Soniya Chi Urea nitrogen/Creatinine [Mass ratio] 17.1 mg/mg Normal [facility] Comment on above: Performed By: #### T SH, CMP, BNP, CMADM ####[facility] Ukmbtyknyn[address] [place], [place] [address]Dr. Soniya Chi PROTIMEon 09-28-2022 INR Coag (PPP) [Relative time] 1.01 {INR} Normal [facility] Comment on above: Performed By: #### P T, PTT ####[facility] Yicqusikoh[address] [place], [place] [address]Dr. Soniya Chi INR GUIDELINES SEE BELOW Normal [facility] Comment on above: Result Comment: SHARON RED INR: 2.0 - 3.0 CONDITIONS NOT LISTED BELOW 2.5 - 3.5 FOR PROSTHETIC HEART VALVE REPLACEMENT 2.5 - 3.5 RECURRENT THROMBOSIS Performed By: #### P T, PTT ####[facility] C[address]zpglgur[address] [place], [place] [address]Dr. Soniya Chi PT Coag (PPP) [Time] 10.7 s Normal 9.0-11.6 [facility] Comment on above: Performed By: #### P T, PTT ####[facility] Dvuizljcld[address] [place], [place] [address]Dr. Soniya Chi PTTon 09-28-2022 aPTT Coag (Bld) [Time] 36.7 s Critically high 22.3-36. 2 The [facility] Comment on above: Performed By: #### P T, PTT ####[facility] Bjjepuqnho[address] [place] [address]Dr. Soniya Chi SALICYLATEon 09-28-2022 SALICYLATE <2.8 Normal <=19.9 [facility] Comment on above: Performed By: #### S ALYC, ACET, ETH ####[facility] Kiib[address]uebwo[address] [place] [address]Dr. Soniya Chi SYMPTOMATIC COVID-19 ANTIGEN on 09-28-2022 EUA Statement SEE BELOW Normal The [facility] Comment on above: Result Comment: This test has not been FDA cleared or approved, but has been authorized by the FDA under an Emergency Use Authorization (EUA) for use by authorized laboratories certified under CLIA that meet the requirements to perform moderate or high complexity testing. This test has been authorized only for the detection of proteins from SARS-CoV-2, not for any other viruses or pathogens. The emergency use of this test is authorized for the duration of the declaration that circumstances exist justifying the authorization of emergency use of in vitro diagnostic tests for detection and/or diagnosis of Covid-19 under section 564(b)(1) of the Act, 21 U.S.C. 360bbb-3(b)(1), unless the declaration is terminated or authorization is revoked sooner. Performed By: #### C VDAGS ####[facility] [address]ksnagtt[address] [place] [address]Dr. Soniya Chi SARS-CoV-2 (COVID-19) RNA NA A+probe Ql (Unsp spec) Negative Normal NEGATIVE The [facility]ital Comment on above: Performed By: #### C VDAGS ####[facility] Sk[address]lchwv[address] [place] [address]Dr. Soniya Chi T4on 09-28-2022 T4 [Mass/Vol] 13.20 ug/dL Normal 4.80-13.90 [facility] Comment on above: Performed By: #### T 4 ####[facility] Rsrct[address] [place], [place] [address]Dr. [facility] TSHon 09-28-2022 TSH 0.188 uIU/mL Critically low 0.358-3.740 [facility] Comment on above: Performed By: #### T SH, CMP, BNP, CMADM ####[facility] Sx[address]izyxhm[address] [place] [address]Dr. Soniya Alon XR CHEST 1 Von 09-28-2022 XR CHEST 1 V Normal The [facility] CBC AUTO DIFFon 09-16-2022 BASO # 0.0 103/ul Normal 0.0-0.1 [facility] Comment on above: Performed By: #### C BC ####[facility] Yskvgjorcd[address] [place], [place] [address]DrKarolina Chi Basophils/100 WBC (Bld) 0.4 % Normal 0.2-2.0 [facility] Comment on above: Performed By: #### C BC ####[facility] Iwalrvczif[address] [place], [place] [address]DrKarolina Chi EO # 0.1 103/ul Normal 0.0-0.7 [facility] Comment on above: Performed By: #### C BC ####[facility] Sjwhelhsvg[address] [place], [place] [address]Dr. Soniya Chi Eosinophils/100 WBC (Bld) 1.7 % Normal 0.9-7.0 The [facility] Comment on above: Performed By: #### C BC ####[facility] Ukfnuaprci[address] [place], [place] [address]Dr. Soniya Chi Erythrocyte distribution wid th (RBC) [Ratio] 15.9 % Critically high 11.0-15.0 [facility] pital Comment on above: Performed By: #### C BC ####[facility] Olguvgvnjf[address] [place], [place] [address]Dr. Soniya Chi Hematocrit (Bld) [Volume fraction] 30.6 % Critically low 36.0-48.0 [facility] pital Comment on above: Performed By: #### C BC ####[facility] Z[address]femrjmc[address] [place], [place] [address]Dr. Soniya Chi Hemoglobin (Bld) [Mass/Vol] 9.9 g/dL Critically low 12.0 -16.0 The [facility] Comment on above: Performed By: #### C BC ####[facility] Tix[address]qra[address] [place] [address]DrKarolina Chi IG # 0.01 10e3/ul Normal 0.00-0.03 [facility] Comment on above: Performed By: #### C BC ####[facility] Vabuiyuoee[address] [place], [place] [address]Dr. Soniya Chi IG % 0.2 % Normal 0.0-0.5 [facility] Comment on above: Performed By: #### C BC ####[facility] Cbaqwldegs[address] [place], [place] [address]DrKarolina Chi LYMPH # 1.2 103/ul Normal 1.2-3.8 [facility] Comment on above: Performed By: #### C BC ####[facility] G[address]xrzbjhs[address] [place], [place] [address]Dr. Soniya Chi Lymphocytes/100 WBC (Bld) 22.4 % Normal 20.5-60.0 The [facility] Comment on above: Performed By: #### C BC ####[facility] Bmsjeawjxd[address] [place], [place] [address]DrKarolina Chi MANUAL DIFF REQ NO Normal The [facility] Comment on above: Performed By: #### C BC ####[facility] Ydacxnbvdz[address] [place], [place] [address]DrKarolina Betancurjuan Alon MCH (RBC) [Entitic mass] 30.9 pg Normal 26.7-34.0 [facility] Comment on above: Performed By: #### C BC ####[facility] Bnmlnbbxwb[address] [place], [place] [address]DrKarolina Chi MCHC (RBC) [Mass/Vol] 32.4 g/dL Normal 29.9-35.2 The [facility] Comment on above: Performed By: #### C BC ####[facility] Icmikmtlhu[address] [place], [place] [address]Dr. Soniya Chi MCV (RBC) [Entitic vol] 95.6 fL Normal 81.0-99.0 [facility] Comment on above: Performed By: #### C BC ####[facility] [address]hwzfm[address] [place] [address]Dr. Soniya Chi MONO # 0.4 103/ul Normal 0.3-0.8 [facility] Comment on above: Performed By: #### C BC ####[facility] Emwycahrxd[address] [place] [address]Dr. Soniya Chi Monocytes/100 WBC (Bld) 6.9 % Normal 1.7-12.0 [facility] Comment on above: Performed By: #### C BC ####[facility] Lseeeshttd[address] [place], [place] [address]Dr. Soniya Chi NEUT # 3.6 103/ul Normal 1.4-6.5 [facility] Comment on above: Performed By: #### C BC ####[facility] Vnayrbkjjd[address] [place], [place] [address]Dr. Soniya Chi Neutrophils/100 WBC (Bld) 68.4 % Normal 43.0-75.0 The [facility] Comment on above: Performed By: #### C BC ####[facility] Qdtdrnctis[address] [place], [place] [address]Dr. Soniya Chi Platelet mean volume (Bld) [Entitic vol] 9.5 fL Normal 9.5-13.5 [facility] Comment on above: Performed By: #### C BC ####[facility] [facility] [address] [place], [place] [id number]. Soniya Chi PLT 219 103/ul Normal 150-450 [facility] Comment on above: Performed By: #### C BC ####[facility] Ccqtf[address] [place], [place] [address]Dr. Soniya Chi RBC 3.20 106/ul Critically low 4.20-5.40 [facility] Comment on above: Performed By: #### C BC ####[facility] [address] [place] [address]Dr. Soniya Chi WBC 5.2 103/ul Normal 4.0-11.0 [facility] Comment on above: Performed By: #### C BC ####[facility] [address] [place] [address]Dr. Soniya Chi Office Visiton 09-16-2022 Follow-up visit [id number] Bisi Osborn 1955 F Date Provider Department Center 09/16/2022 MICHELE BURT CARD [facility] No family history on file Level of Service:05011 [place] OFFICE/OUTPATIENT ESTABLISHED MOD MDM 30-39 MIN Reason for Visit and Comments: Follow-up [768810] - Hospitalization - A-fib Edema [[id number]] Palpitations [466204] Normal [facility] PROF CHEM 8 (BAS METB)on Anion gap [Moles/Vol] 10.5 mmol/L Normal [facility] Comment on above: Performed By: #### B MP ####[facility] [address] [place] [address]Dr. Soniya Chi Calcium [Mass/Vol] 10.1 mg/dL Normal 8.5-10.1 [facility] Comment on above: Performed By: #### B MP ####[facility] [address] [place] [address]Dr. Soniya Chi Chloride [Moles/Vol] 107 mmol/L Normal 98-107 [facility] Comment on above: Performed By: #### B MP ####[facility] [address] [place] [address]Dr. Soniya Chi CO2 [Moles/Vol] 29.9 mmol/L Normal 21.0-32.0 [facility] Comment on above: Performed By: #### B MP ####[facility] [address] [place] [address]Dr. Soniya Chi Creatinine [Mass/Vol] 1.27 mg/dL Critically high 0.55-1.02 [facility] Comment on above: Performed By: #### B MP ####[facility] [address] [place] [address]Dr. Soniya Chi EGFR-AF SRI LANKAN 51 mL/min/1.73m2 Critically low >=60 [facility] Comment on above: Performed By: #### B MP ####[facility] [address] [place] [address]Dr. Soniya Chi EGFR-NON AF SRI LANKAN 42 mL/min/1.73m2 Critically low >=60 [facility] Comment on above: Performed By: #### B MP ####[facility] [address] [place] [address]Dr. Soniya Chi Glucose [Mass/Vol] 92 mg/dL Normal 74-106 [facility] Comment on above: Performed By: #### B MP ####[facility] [address] [place] [address]Dr. Soniya Chi Potassium [Moles/Vol] 4.4 mmol/L Normal 3.5-5.1 [facility] Comment on above: Performed By: #### B MP ####[facility] [address] [place] [address]Dr. Soniya Chi Sodium [Moles/Vol] 143 mmol/L Normal 136-145 [facility] Comment on above: Performed By: #### B MP ####[facility] [address] [place] [address]Dr. Soniya Chi Urea nitrogen [Mass/Vol] 28.0 mg/dL Critically high 7.0-18 .0 [facility] Comment on above: Performed By: #### B MP ####[facility] [address] [place] [address]Dr. Soniya Chi Urea nitrogen/Creatinine [Mass ratio] 22.0 mg/mg Normal [facility] Comment on above: Performed By: #### B MP ####[facility] T[address] [place] [address]Dr. Soniya Chi [facility] Recordson 09-11 [facility] Records [id number]:127 [facility] Outside [facility] Correspo ndenceon 09-11-2022 Outside Hospital Correspondence [id number]:127 [facility] Ambulatory Visit Summaryon 0 09-10-2022 Ambulatory Visit Summary MARLEY OSBORN :1955 Visit Date:09/10/2022 Ambulatory Visit Instructions Your Diagnosis HTN (hypertension) Hyperlipidemia, unspecified LISA (obstructive sleep apnea) Loss of memory Anxiety disorder Spasm of muscle Your Care Team Attending Physician - MELVA ESCOBEDO MD Primary Care Physician - MELVA ESCOBEDO MD This Is Your Medications List acetaminophen (acetaminophen 500 mg Tab) amitriptyline (amitriptyline 10 mg Tab) apixaban (apixaban 5 mg oral tablet) bisoprolol-hydrochlorothiazide (bisoprolol-hydrochlorothiazide 2.5 mg-6.25 mg Tab) bisoprolol-hydrochlorothiazide (bisoprolol-hydrochlorothiazide 2.5 mg-6.25 mg Tab) ergocalciferol (ergocalciferol 50,000 intl units Cap) levothyroxine (levothyroxine 75 mcg (0.075 mg) Tab) potassium chloride (Potassium Chloride (Kdk-Bofl-Ann M20) 20 mEq oral tablet, extended release) risperidone (risperidone 1 mg Tab) risperidone (risperidone 2 mg Tab) ziprasidone (ziprasidone 20 mg Cap) Procedures Performed Colonoscopy (01/2019), CEIOL - Cataract extraction and insertion of intraocular lens (04/28/2017), Tonsillectomy and adenoidectomy. Discharge Vitals Heart Rate (Peripheral) 60 Respiratory Rate 20 Blood Pressure 122/78 Height 154.94 cm Height 61 in Weight 76.2 kg Weight 167.64 lb BMI 31.74 What to do next Scheduled Follow-Up Appointments Friday. 2022 10:40 AM EDT With: MELVA ESCOBEDO MD Where: [facility] Medicine [facility] Family Medicine Office/Clini c Noteon 09-10-2022 Family Medicine Office/Clinic Note Chief Complaint hospital follow up HPI Staff TCM: Fax medical release to Michele for records. Face to face for Home health care, to fax notes to Hospital:[facility] Admission date:08/22/22 Discharge date:09/07/22 Symptoms the patient presented with: altered mental status. Current concerns: having hard time coping through this need her Luis con refilled Mamm: 04/17/22 normal Colon: 2-3 years ago AMW:Due Covid: UTD History of Present Illness ANXIETY DISORDER MAJOR DEPRESSION WITH PSYCHOTIC FEATURES HTN HYPERLIPIDEMIA MILD COGNITIVE DISORDER LISA Review of Systems Constitutional: no fever, no chills, WEAK AND FATIGUES, FALL RISK SES THE WALKER Skin: no Jaundice, no rash, no lesions, nopetechiae ENMT: no ear pain, no sore throat, no congestion, no hoarseness; COMPLAINTS OF CONSTANT DROOLIN Respiratory: no shortness of breath, no cough, no orthopnea, no wheezing Cardiovascular: no chest pain, no palpitations, no edema Gastrointestinal: no nausea, no vomiting, no diarrhea, no GI bleeding Genitourinary: no dysuria, no hematuria, no discharge, no paY Musculoskeletal: no back pain, no trauma Neurologic: no headache, no dizziness, no numbness, no weakness SOME PROBLEMS WITH MEMORY Psychiatric: ANOTHER ADMIT WITH SAME SYMPTOMS Additional ROS info: Except as noted in the above Review of Systems and in the History of Present Illness all other systems have been reviewed and are negative or noncontributory. Physical Exam Vitals & Measurements HR: 60(Peripheral) RR: 20 BP: 122/78 SpO2: 100% HT: 61 in HT: 154.94 cm WT: 76.2 kg WT: 167.64 lb BMI: 31.74 General: alert, no acute distress Skin: warm, dry Head: no trauma, normocephalic Neck: Trachea midline, no adenopathy, no tenderness Eye: normal conjunctiva, sclera clear ENMT: TM's clear, oral mucosa moist, no pharyngeal erythema or exudate Cardiovascular: regular rate and rhythm, normal peripheral perfusion Respiratory: Lungs CTA, respirations non labored Chest wall: no deformity. Gastrointestinal: soft, non distended, no tenderness, no guarding. Back: No tenderness, Normal ROM, Normal alignment. Extremities: no deformity, no trauma Neurological: very slow TO ANSER QUESTION, USES WALKER AND SLOW WITH THE WALKING. Psychiatric: cooperative, affect appropriate for age, normal judgement, normal psychiatric thoughts. Assessment/Plan DISCUXXED RECURRENT UTIS AND USING CRANBERRY LONI DAILY. BLOOD PRESSURE CONTROLLED WITH JUST HCTZ WILL CONTINUE AND STAY WITH THE POTASSIUM PILLS DAILY. CHOLESTEROL CONTROLLED, NO COMPLAINTS. ON ELIQUIS NOW, TOO EXPENSIVE RECOMMEND COUMDAIN THRU COUMADIN CLINIC EXPLAINED. RECHECK ONE MONTH. 1. HTN (hypertension) (I10: Essential (primary) hypertension) 2. Hyperlipidemia, unspecified (E78.5: Hyperlipidemia, unspecified) 3. LISA (obstructive sleep apnea) (G47.33: Obstructive sleep apnea (adult) (pediatric)) 4. Loss of memory (R41.3: Other amnesia) 5. Anxiety disorder (F41.9: Anxiety disorder, unspecified) 6. Spasm of muscle (M62.838: Other muscle spasm) Orders: Body Mass Index (BMI) documented 3008F Current tobacco non-user 1036F Depression Screening Negative 3352F Influenza immunization administered or previously received 4274F Most recent diastolic blood pressure <80 mm Hg 3078F Patient screen for fall risk: no falls in last year or 1 fall with no injury in last year 1101F Systolic BP <130 mm Hg (Most Recent) 3074F Follow-up No qualifying data available Problem List/Past Medical History Ongoing Anxiety disorder HTN (hypertension) Hyperlipidemia, unspecified Loss of memory Major depression with psychotic features LISA (obstructive sleep apnea) Spasm of muscle Historical Depression Hypothyroidism IBS - Irritable bowel syndrome Paranoid schizophrenia Procedure/Surgical History Colonoscopy (01/2019), CEIOL - Cataract extraction and insertion of intraocular lens (04/28/2017), Tonsillectomy and adenoidectomy. Medications acetaminophen 500 mg Tab, 500 mg= 1 tab(s), Oral, q4hr, PRN amitriptyline 10 mg Tab, Not taking apixaban 5 mg oral tablet, 5 mg= 1 tab(s), Oral, BID bisoprolol-hydrochlorothiazide 2.5 mg-6.25 mg Tab, 1 tab(s), Oral, Daily, Not taking bisoprolol-hydrochlorothiazide 2.5 mg-6.25 mg Tab, Not taking ergocalciferol 50,000 intl units Cap levothyroxine 75 mcg (0.075 mg) Tab, 75 mcg= 1 tab(s), Oral, Daily Potassium Chloride (Cfl-Yank-Psy M20) 20 mEq oral tablet, extended release, 20 mEq= 1 tab(s), Oral, BID risperidone 1 mg Tab, 1 mg= 1 tab(s), Oral, BID, Not taking risperidone 2 mg Tab, 2 mg= 1 tab(s), Oral, BID ziprasidone 20 mg Cap, 20 mg= 1 cap(s), Oral, BID, Not taking Allergies Keflex (rash) penicillins (rash) sulfamethoxazole (rash) Social History Tobacco Never (less than 100 in lifetime) Tobacco Use:. Never Smokeless Tobacco Use:., 09/10/2022 Family History Dementia: B (more content not included)... Normal [facility] Comment on above: Result Comment: Elec tronically Signed By: FANNY ROPER, MELVA Laboy\.br\Date and Time Signed: 09/10/22 11:29 EDT Outside [facility] Correspo ndenceon 09-02-2022 Outside [facility] Correspondence [id number]:127 Normal [facility] Basic Metabolic Panelon - Anion gap [Moles/Vol] 11 mmol/L 9 - 17 mmol/L [facility] Calcium [Mass/Vol] 10.0 mg/dL 8.6 - 10.4 mg/dL [facility] Chloride [Moles/Vol] 105 mmol/L 98 - 107 mmol/L [facility] CO2 [Moles/Vol] 28 mmol/L 20 - 31 mmol/L [facility] Creatinine [Mass/Vol] 1.06 mg/dL High 0.50 - 0.90 mg /dL [facility] GFR/1.73 sq M.predicted MDRD (S/P/Bld) [Vol rate/Area] 58 mL/min/{1.73_m2} Low - PINF [facility] Comment on above: These results are not intended for use in patients <18 years of age. eGFR results are calculated without a race factor using the 2020 CKD-EPI equation. Careful clinical correlation is recommended, particularly when comparing to results calculated using previous equations. The CKD-EPI equation is less accurate in patients with extremes of muscle mass, extra-renal metabolism of creatine, excessive creatine ingestion, or following therapy that affects renal tubular secretion. Glucose [Mass/Vol] 89 mg/dL 70 - 99 mg/dL [facility] Interpretation and review of laboratory results Abnormal [facility] Potassium [Moles/Vol] 4.2 mmol/L 3.7 - 5.3 mmol /L [facility] Sodium [Moles/Vol] 144 mmol/L 135 - 144 mmol/L [facility] Urea nitrogen [Mass/Vol] 18 mg/dL 8 - 23 mg/d L [facility] Urea nitrogen/Creatinine (Bl d) [Mass ratio] 17 - [facility] Basic Metabolic Profon 08-27 Anion gap [Moles/Vol] 11 mmol/L Normal - [facility] Comment on above: Performed By: #### B LONI, TSH #### [facility] [address] [place] [address] Bus Cleaner: Kayley Doll MD BUN/CRE Ratio 17 Normal - [facility] Comment on above: Performed By: #### B LONI, TSH #### [facility] [address] [place] [address] Bus Cleaner: Kayley Doll MD Calcium [Mass/Vol] 10.0 mg/dL Normal 8.6-10.4 [facility] Comment on above: Performed By: #### B LONI, TSH #### [facility] [address] [place] [address] Bus Cleaner: Kayley Doll MD Chloride [Moles/Vol] 105 mmol/L Normal 98-107 [facility] Comment on above: Performed By: #### B LONI, TSH #### [facility] [address] [place] [address] Bus Cleaner: Kayley Doll MD CO2 [Moles/Vol] 28 mmol/L Normal - [facility] Comment on above: Performed By: #### B MP, TSH #### [facility] [address] [place] [address] Bus Cleaner: Kayley Doll MD Creatinine [Mass/Vol] 1.06 mg/dL High 0.50-0.90 [facility] Comment on above: Performed By: #### B MP, TSH #### [facility] [address] [place] [address] Bus Cleaner: Kayley Doll MD GFR/1.73 sq M.predicted luis g non-blacks MDRD (S/P/Bld) [Vol rate/Area] 58 mL/min/{1.73_m2} Low >60 [facility] Comment on above: Result Comment: These results are not intended for use in patients <18 years of age. eGFR results are calculated without a race factor using the 2020 CKD-EPI equation. Careful clinical correlation is recommended, particularly when comparing to results calculated using previous equations. The CKD-EPI equation is less accurate in patients with extremes of muscle mass, extra-renal metabolism of creatine, excessive creatine ingestion, or following therapy that affects renal tubular secretion. Performed By: #### B LONI, TSH #### [facility] [address] [place] [address] [place] [address] Bus Cleaner: Kayley Doll MD Glucose [Mass/Vol] 89 mg/dL Normal 70-99 [facility] Comment on above: Performed By: #### B LONI, TSH #### [facility] [address] [place] [address] Bus Cleaner: Kayley Doll MD Potassium [Moles/Vol] 4.2 mmol/L Normal 3.7-5.3 [facility] Comment on above: Performed By: #### B LONI, TSH #### [facility] [address] [place] [address] Bus Cleaner: Kayley Doll MD Sodium [Moles/Vol] 144 mmol/L Normal 135-144 [facility] Comment on above: Performed By: #### B MP, TSH #### [facility] [address] [place] [address] Bus Cleaner: Kayley Doll MD Urea nitrogen [Mass/Vol] 18 mg/dL Normal 8-23 [facility] Comment on above: Performed By: #### B MP, TSH #### [facility] [address] [place] [address] Bus Cleaner: Kayley Doll MD Cult,Urineon 08-27-2022 Cult,Urine Specimen Description .CLEAN CATCH URINE Culture NO SIGNIFICANT GROWTH Report Status FINAL 08/26/2022 Normal [facility] Comment on above: Performed By: #### U #### [facility] [address] [place] [address] Bus Cleaner: Jersey Dahl MD [facility] [address] [place] [address] [place] [address] Bus Cleaner: Kayley Doll MD No Panel Informationon 08-27 [facility] TSHon 08-27-2022 TSH Qn 3.78 m[IU]/L [facility] Thyroid Stim. Horm.on 2022 Thyroid Stim. Horm. 3.78 uIU/mL Normal 0.30-5.00 [facility] Comment on above: Performed By: #### B MP, TSH #### [facility] [address] [place] [address] [place] [address] Bus Cleaner: Kayley Doll MD Urinalysison 08-25-2022 Bilirubin Urine Negative NEGATIVE [facility] Color, UA Yellow Yellow [facility] Glucose Auto test strip (U) [Mass/Vol] Negative NEGATIVE [facility] Interpretation and review of laboratory results Abnormal [facility] Ketones (U) [Mass/Vol] Negative NEGATIVE [facility] Leukocyte esterase Auto test strip Ql (U) Negative NEGATIVE [facility] Nitrite Auto test strip Ql (U) Negative NEGAT DEMARCO [facility] Protein (U) [Mass/Vol] 7.0 mg/dL 5.0 - 9.0 GIO N [facility] Protein (U) [Mass/Vol] Negative NEGATIVE GIO N [facility] Specific [place], UA Low 1.010 - 1.020 B ON [facility] Turbidity UA Clear Clear [facility] Urine Hgb Negative NEGATIVE [facility] Urobilinogen, Urine Normal Normal [facility] Urinalysis, Routineon 2022 Bilirubin, SemiQt,Ur Negative Normal NEG [facility] Comment on above: Performed By: #### U A #### [facility] [address] [place] [address] Bus Cleaner: Kayley Dlol MD Blood, Urine Negative Normal NEG [facility] Comment on above: Performed By: #### U A #### [facility] [address] [place] [address] Bus Cleaner: Kayley Doll MD Clarity (U) Clear Normal CLEAR [facility] Comment on above: Performed By: #### U A #### [facility] [address] [place] [address] Bus Cleaner: Kayley Doll MD Color (U) Yellow Normal YEL [facility]ital Comment on above: Performed By: #### U A #### [facility] [address] [place] [address] Bus Cleaner: Kayley Doll MD Glucose Ql (U) Negative Normal NEG [facility] Comment on above: Performed By: #### U A #### [facility] [address] [place] [address] Bus Cleaner: Kalyey Doll MD Ketones Ql (U) Negative Normal NEG [facility] Comment on above: Performed By: #### U A #### [facility] [address] [place] [address] Bus Cleaner: Kayley Doll MD Leukocyte esterase Test strip Ql (U) Negative Normal NEG [facility] Comment on above: Performed By: #### U A #### [facility] [address] [place] [address] Dr[address] [place], [place] [address] Bus Cleaner: Kayley Doll MD Nitrite,Ur Negative Normal NEG [facility] Comment on above: Performed By: #### U A #### [address] [place], [place] [address] Bus Cleaner: Kayley Doll MD PH,Ur 7.0 Normal 5.0-9.0 [facility] Comment on above: Performed By: #### U A #### [address] [place], [place] [address] Bus Cleaner: Kayley Doll MD Protein Ql (U) Negative Normal NEG [facility] Comment on above: Performed By: #### U A #### [address] [place], [place] [address] Bus Cleaner: Kayley Doll MD Spec. [place],Ur <1.005 Low 1.010-1.020 [facility] Comment on above: Performed By: #### U A #### [address] [place], [place] [address] Bus Cleaner: Kayley Doll MD Urobilinogen,Ur Normal Normal NORM [facility] Comment on above: Performed By: #### U A #### [address] [place], [place] [address] Bus Cleaner: Kayley Doll MD CBC AUTO DIFFon 08-22-2022 BASO # 0.0 103/ul Normal 0.0-0.1 [facility]spital Comment on above: Performed By: #### C BC ####[facility] [address] [place] [address]DrKarolina Chi Basophils/100 WBC (Bld) 0.4 % Normal 0.2-2.0 [facility] Comment on above: Performed By: #### C BC ####[facility] [address] [place], [place] [address]Dr. Soniya Chi EO # 0.2 103/ul Normal 0.0-0.7 [facility]ital Comment on above: Performed By: #### C BC ####[facility] [address] [place], [place] [address]Dr. Soniya Chi Eosinophils/100 WBC (Bld) 2.7 % Normal 0.9-7.0 [facility] Comment on above: Performed By: #### C BC ####[facility] [address] [place], [place] [address]Dr. Soniya Chi Erythrocyte distribution wid th (RBC) [Ratio] 15.1 % Critically high 11.0-15.0 The [facility] pitdc Comment on above: Performed By: #### C BC ####[facility] [address] [place], [place] [address]Dr. Soniya Chi Hematocrit (Bld) [Volume fraction] 24.2 % Critically low 36.0-48.0 [facility] Comment on above: Performed By: #### C BC ####[facility] [address] [place], [place] [address]Dr. Soniya Chi Hemoglobin (Bld) [Mass/Vol] 8.0 g/dL Critically low 12.0 -16.0 [facility] Comment on above: Performed By: #### C BC ####[facility] [address] [place], [place] [address]Dr. Soniya Chi IG # 0.03 10e3/ul Normal 0.00-0.03 [facility] Comment on above: Performed By: #### C BC ####[facility] [address] [place], [place] [address]Dr. Soniya Chi IG % 0.5 % Normal 0.0-0.5 [facility] Comment on above: Performed By: #### C BC ####[facility] Z[address] [place], [place] [address]Dr. Soniya Chi LYMPH # 1.3 103/ul Normal 1.2-3.8 [facility] Comment on above: Performed By: #### C BC ####[facility] [address] [place] [address]Dr. Soniya Chi Lymphocytes/100 WBC (Bld) 23.4 % Normal 20.5-60.0 [facility] Comment on above: Performed By: #### C BC ####[facility] [address] [place] [address]Dr. Soniya Chi MANUAL DIFF REQ NO Normal [facility] Comment on above: Performed By: #### C BC ####[facility] [address] [place] [address]Dr. Gypsyjuan Chi MCH (RBC) [Entitic mass] 30.8 pg Normal 26.7-34.0 [facility] Comment on above: Performed By: #### C BC ####[facility] [address] [place], [place] [address]Dr. Soniya Chi MCHC (RBC) [Mass/Vol] 33.1 g/dL Normal 29.9-35.2 [facility] Comment on above: Performed By: #### C BC ####[facility] [address] [place], [place] [address]Dr. Soniya Chi MCV (RBC) [Entitic vol] 93.1 fL Normal 81.0-99.0 [facility] Comment on above: Performed By: #### C BC ####[facility] [address] [place] [address]Dr. Soniya Chi MONO # 0.6 103/ul Normal 0.3-0.8 The [facility] Comment on above: Performed By: #### C BC ####[facility] [address] [place], [place] [address]Dr. Soniya Chi Monocytes/100 WBC (Bld) 10.3 % Normal 1.7-12.0 [facility] Comment on above: Performed By: #### C BC ####[facility] [address] [place] [address]Dr. Soniya Chi NEUT # 3.5 103/ul Normal 1.4-6.5 [facility] Comment on above: Performed By: #### C BC ####[facility] [address] [place] [id number]. Soniya Chi Neutrophils/100 WBC (Bld) 62.7 % Normal 43.0-75.0 [facility] Comment on above: Performed By: #### C BC ####[facility] [address] [place], [place] [address]Dr. Soniya Chi Platelet mean volume (Bld) [ Entitic vol] 10.6 fL Normal 9.5-13.5 [facility] Comment on above: Performed By: #### C BC ####[facility] [address]zddjhbmx[address] [place], [place] [address]Dr. Soniya Alon PLT 133 103/ul Critically low 150-450 [facility] Comment on above: Performed By: #### C BC ####[facility] Aqiohigr[address] [place], [place] [address]Dr. Soniya Chi RBC 2.60 106/ul Critically low 4.20-5.40 The [facility] Comment on above: Performed By: #### C BC ####[facility] Yxcvqmkpyk[address] [place], [place] [address]Dr. Soniya Chi WBC 5.6 103/ul Normal 4.0-11.0 The [facility] Comment on above: Performed By: #### C BC ####[facility] Bqprebebie[address] [place], [place] [address]Dr. Soniya Chi PROF 14(COMP METB)on 023 Albumin [Mass/Vol] 2.3 g/dL Critically low 3.4-5.0 [facility] Comment on above: Performed By: #### C MP, TSH ####[facility] Mii[address] [place], [place] [address]Dr. Soniya Alon Albumin/Globulin [Mass ratio] 0.8 {ratio} Normal [facility] Comment on above: Performed By: #### C MP, TSH ####[facility] [address] [place] [address]Dr. Soniya Chi ALP [Catalytic activity/Vol] 80 U/L Normal 46-116 [facility] Comment on above: Performed By: #### C MP, TSH ####[facility] [address]av[address] [place] [address]Dr. Soniya Chi ALT [Catalytic activity/Vol] 23 U/L Normal 14-59 [facility] Comment on above: Performed By: #### C MP, TSH ####[facility] [address]voxtym[address] [place] [address]Dr. Soniya Chi Anion gap [Moles/Vol] 9.7 mmol/L Normal [facility] Comment on above: Performed By: #### C MP, TSH ####[facility] [address] [place] [address]Dr. Soniya Chi AST [Catalytic activity/Vol] 20 U/L Normal 15-37 [facility] Comment on above: Performed By: #### C LONI, TSH ####[facility] [address]fw[address] [place] [address]Dr. Soniya Chi Bilirubin [Mass/Vol] 0.6 mg/dL Normal 0.2-1.0 [facility] Comment on above: Performed By: #### C MP, TSH ####[facility] [address]se[address] [place] [address]Dr. Soniya Chi Calcium [Mass/Vol] 8.7 mg/dL Normal 8.5-10.1 [facility] Comment on above: Performed By: #### C MP, TSH ####[facility] [address]yl[address] [place] [address]Dr. Soniya Chi Chloride [Moles/Vol] 105 mmol/L Normal 98-107 [facility] Comment on above: Performed By: #### C MP, TSH ####[facility] [address]reitkig[address] [place] [address]Dr. Soniya Chi CO2 [Moles/Vol] 30.0 mmol/L Normal 21.0-32.0 The [facility] Comment on above: Performed By: #### C MP, TSH ####[facility] Kwzkiconpd15[address] [place] [address]Dr. Soniya Chi Creatinine [Mass/Vol] 0.96 mg/dL Normal 0.55-1.02 [facility] Comment on above: Performed By: #### C MP, TSH ####[facility] H[address]tiwadhk[address] [place] [address]Dr. Soniya Chi EGFR-AF SRI LANKAN >60 Normal >=60 [facility] Comment on above: Performed By: #### C MP, TSH ####[facility] Xhkgpsaeps8[address] [place] [address]Dr. Soniya Chi EGFR-NON AF SRI LANKAN 58 mL/min/1.73m2 Critically low >=60 [facility] Comment on above: Performed By: #### C MP, TSH ####[facility] Ynv[address]vfdgyi[address] [place] [address]Dr. Soniya Chi Globulin (S) [Mass/Vol] 2.8 g/dL Normal T [facility] Comment on above: Performed By: #### C MP, TSH ####[facility] [address]iknocm[address] [place] [address]Dr. Soniya Chi Glucose [Mass/Vol] 96 mg/dL Normal 74-106 [facility] Comment on above: Performed By: #### C MP, TSH ####[facility] Bboggctohv[address] [place] [address]Dr. Soniya Chi Potassium [Moles/Vol] 2.7 mmol/L Critically low 3.5-5.1 [facility] Comment on above: Performed By: #### C MP, TSH ####[facility] Mlawnwswhf6636 [place] [address]Dr. Soniya Chi Protein [Mass/Vol] 5.1 g/dL Critically low 6.4-8.2 [facility] Comment on above: Performed By: #### C MP, TSH ####[facility] Njtydaalcg08[address] [place] [address]Dr. Soniya Chi Sodium [Moles/Vol] 141 mmol/L Normal 136-145 [facility] Comment on above: Performed By: #### C MP, TSH ####[facility] Kpmkksbilo8[address] [place] [address]Dr. Soniya Chi Urea nitrogen [Mass/Vol] 17.0 mg/dL Normal 7.0-18.0 [facility] Comment on above: Performed By: #### C MP, TSH ####[facility] Ztrinonwhu[address] [place], [place] [address]Dr. Soniya Chi Urea nitrogen/Creatinine [Mass ratio] 17.7 mg/mg Normal [facility] Comment on above: Performed By: #### C MP, TSH ####[facility] Yskgykvpdm[address] [place], [place] [address]Dr. Soniya Chi TSHon 08-22-2022 TSH 2.840 uIU/mL Normal 0.358-3.740 [facility] Comment on above: Performed By: #### C MP, TSH ####[facility] Cieyowffmw[address] [place], [place] [address]Dr. Soniya Chi CBC AUTO DIFFon 08-21-2022 BASO # 0.0 103/ul Normal 0.0-0.1 [facility] Comment on above: Performed By: #### C BC ####[facility] Ytbvdudece[address] [place], [place] [address]Dr. Soniya Alon Basophils/100 WBC (Bld) 0.3 % Normal 0.2-2.0 [facility] Comment on above: Performed By: #### C BC ####[facility] Cenffvirio[address] [place], [place] [address]Dr. Soniya Chi EO # 0.1 103/ul Normal 0.0-0.7 [facility] Comment on above: Performed By: #### C BC ####[facility] Osfajiqhln[address] [place], [place] [address]Dr. Soniya Alon Eosinophils/100 WBC (Bld) 0.9 % Normal 0.9-7.0 [facility] Comment on above: Performed By: #### C BC ####[facility] Wilov[address]oc[address] [place], [place] [address]Dr. Soniya Chi Erythrocyte distribution wid th (RBC) [Ratio] 15.1 % Critically high 11.0-15.0 [facility] Comment on above: Performed By: #### C BC ####[facility] Dzabumeuig[address] [place], [place] [address]Dr. Soniya Chi Hematocrit (Bld) [Volume fraction] 27.3 % Critically low 36.0-48.0 [facility] Comment on above: Performed By: #### C BC ####[facility] Tgnbotnmyw[address] [place], [place] [address]Dr. Soniya Chi Hemoglobin (Bld) [Mass/Vol] 8.9 g/dL Critically low 12.0 -16.0 [facility] Comment on above: Performed By: #### C BC ####[facility] Yutzbsczcm[address] [place], [place] [address]Dr. Soniya Chi IG # 0.03 10e3/ul Normal 0.00-0.03 [facility] Comment on above: Performed By: #### C BC ####[facility] Kodyggnmof[address] [place], [place] [address]Dr. Soniya Chi IG % 0.5 % Normal 0.0-0.5 [facility] Comment on above: Performed By: #### C BC ####[facility] Z[address]thwwzfph[address] [place], [place] [address]Dr. Soniya Chi LYMPH # 1.0 103/ul Critically low 1.2-3.8 [facility] Comment on above: Performed By: #### C BC ####[facility] Pggvyjdkdk[address] [place], [place] [address]Dr. Gypsyjuan Chi Lymphocytes/100 WBC (Bld) 14.9 % Critically low 20.5-6 0.0 [facility] Comment on above: Performed By: #### C BC ####[facility] Lptgxlrzit[address] [place], [place] [address]Dr. Gypsyjuan Chi MANUAL DIFF REQ NO Normal [facility] Comment on above: Performed By: #### C BC ####[facility] Zzneuazoro75[address] [place] [address]Dr. Soniya Chi MCH (RBC) [Entitic mass] 31.2 pg Normal 26.7-34.0 [facility] Comment on above: Performed By: #### C BC ####[facility] Iopsooxrfj6614 [place] [address]Dr. Soniya Chi MCHC (RBC) [Mass/Vol] 32.6 g/dL Normal 29.9-35.2 [facility] Comment on above: Performed By: #### C BC ####[facility] Jmxuawjuc[address] [place], [place] [address]Dr. Soniya Chi MCV (RBC) [Entitic vol] 95.8 fL Normal 81.0-99.0 [facility] Comment on above: Performed By: #### C BC ####[facility] Xutciijtwh[address] [place], [place] [address]Dr. Soniya Chi MONO # 0.6 103/ul Normal 0.3-0.8 [facility] Comment on above: Performed By: #### C BC ####[facility] Cekwrfbuml[address] [place], [place] [address]Dr. Gypsyjuan Chi Monocytes/100 WBC (Bld) 8.8 % Normal 1.7-12.0 [facility] Comment on above: Performed By: #### C BC ####[facility] H[address]jelkury[address] [place], [place] [address]Dr. Soniya Chi NEUT # 4.9 103/ul Normal 1.4-6.5 [facility] Comment on above: Performed By: #### C BC ####[facility] A[address]acsihq[address] [place], [place] [address]Dr. Soniya Chi Neutrophils/100 WBC (Bld) 74.6 % Normal 43.0-75.0 [facility] Comment on above: Performed By: #### C BC ####[facility] Yl[address]wo[address] [place], [place] [address]Dr. Soniya Chi Platelet mean volume (Bld) [ Entitic vol] 10.7 fL Normal 9.5-13.5 [facility] Comment on above: Performed By: #### C BC ####[facility] [address]jekeps[address] [place] [address]Dr. Gypsyjuan Alon PLT 127 103/ul Critically low 150-450 [facility] Comment on above: Performed By: #### C BC ####[facility] Pwxpwhjhso7[address] [place] [address]Dr. Gypsyjuan Chi RBC 2.85 106/ul Critically low 4.20-5.40 [facility] Comment on above: Performed By: #### C BC ####[facility] Mteikvmgkc98[address] [place] [address]Dr. Soniya Chi WBC 6.6 103/ul Normal 4.0-11.0 [facility] Comment on above: Performed By: #### C BC ####[facility] Xyubqnybhm[address] [place] [address]Dr. Soniya Chi PROF 14(COMP METB)on 023 Albumin [Mass/Vol] 2.8 g/dL Critically low 3.4-5.0 [facility] Comment on above: Performed By: #### T TIFFANIE, CMP ####[facility] Tdaeypugwc[address] [place] [address]Dr. Soniya Chi Albumin/Globulin [Mass ratio] 0.8 {ratio} Normal [facility] Comment on above: Performed By: #### T TIFFANIE, CMP ####[facility] Wizepziifx[address] [place] [address]Dr. Soniya Chi ALP [Catalytic activity/Vol] 101 U/L Normal 46-116 [facility] Comment on above: Performed By: #### T SH, CMP ####[facility] Hmkkffeyca2464 [place] [address]Dr. Soniya Chi ALT [Catalytic activity/Vol] 27 U/L Normal 14-59 [facility] Comment on above: Performed By: #### T SH, CMP ####[facility] Sdwtfypuaw48[address] [place] [address]Dr. Soniya Chi Anion gap [Moles/Vol] 15.6 mmol/L Normal [facility] Comment on above: Performed By: #### T SH, CMP ####[facility] G[address]zfkcgmg6[address] [place] [address]Dr. Soniya Chi AST [Catalytic activity/Vol] 23 U/L Normal 15-37 [facility] Comment on above: Performed By: #### T SH, CMP ####[facility] Favgwdogep[address] [place], [place] [address]Dr. Soniya Chi Bilirubin [Mass/Vol] 0.9 mg/dL Normal 0.2-1.0 [facility] Comment on above: Performed By: #### T TIFFANIE, CMP ####[facility] Yiujcdlmvb[address] [place], [place] [address]Dr. Soniya Chi Calcium [Mass/Vol] 9.1 mg/dL Normal 8.5-10.1 [facility] Comment on above: Performed By: #### T TIFFANIE, CMP ####[facility] Tgtpqajuxy[address] [place], [place] [address]Dr. Soniya Chi Chloride [Moles/Vol] 108 mmol/L Critically high 98-107 [facility] Comment on above: Performed By: #### T TIFFANIE, CMP ####[facility] Fvhxtpppsw[address] [place], [place] [address]Dr. Soniya Chi CO2 [Moles/Vol] 25.8 mmol/L Normal 21.0-32.0 [facility] Comment on above: Performed By: #### T TIFFANIE, CMP ####[facility] Zxbabyrmhe[address] [place], [place] [address]Dr. Soniya Chi Creatinine [Mass/Vol] 1.01 mg/dL Normal 0.55-1.02 [facility] Comment on above: Performed By: #### T TIFFANIE, CMP ####[facility] H[address]ffsokrvc[address] [place], [place] [address]Dr. Soniya Alon EGFR-AF SRI LANKAN >60 Normal >=60 [facility] Comment on above: Performed By: #### T TIFFANIE, CMP ####[facility] Qsohqvqfuk[address] [place], [place] [address]Dr. Soniya Alon EGFR-NON AF SRI LANKAN 55 mL/min/1.73m2 Critically low >=60 [facility] Comment on above: Performed By: #### T SH, CMP ####[facility] Pt[address]jnfqifj[address] [place], [place] [address]Dr. Soniya Chi Globulin (S) [Mass/Vol] 3.3 g/dL Normal [facility] Comment on above: Performed By: #### T SH, CMP ####[facility] Bhanknliuc[address] [place], [place] [address]Dr. Soniya Chi Glucose [Mass/Vol] 68 mg/dL Critically low 74-106 [facility] Comment on above: Performed By: #### T SH, CMP ####[facility] Hdgpthkfyo[address] [place], [place] [address]Dr. Gypsyjuan Chi Potassium [Moles/Vol] 3.4 mmol/L Critically low 3.5-5.1 [facility] Comment on above: Performed By: #### T SH, CMP ####[facility] Lyuxvvbfkm[address] [place], [place] [address]Dr. Soniya Chi Protein [Mass/Vol] 6.1 g/dL Critically low 6.4-8.2 [facility] Comment on above: Performed By: #### T SH, CMP ####[facility] Ushsoacqzt[address] [place], [place] [address]Dr. Gypsyjuan Chi Sodium [Moles/Vol] 146 mmol/L Critically high 136-145 [facility] Comment on above: Performed By: #### T TIFFANIE, CMP ####[facility] C[address]zuprizej[address] [place], [place] [address]Dr. Soniya Chi Urea nitrogen [Mass/Vol] 21.0 mg/dL Critically high 7.0-18 .0 [facility] Comment on above: Performed By: #### T SH, CMP ####[facility] Daqysrgllj[address] [place], [place] [address]Dr. Soniya Chi Urea nitrogen/Creatinine [Mass ratio] 20.8 mg/mg Normal [facility] Comment on above: Performed By: #### T SH, CMP ####[facility] I[address]cjvkxtc[address] [place], [place] [address]Dr. Soniya Chi Patient Educationon 08-22-19 Patient Education Cooking With Less Sa lt Cooking with less salt is one way to reduce the amount of sodium you get from food. Depending on your condition and overall health, your health care provider or diet and nutritional chemist (dietitian) may recommend that you reduce your sodium intake. Most people should have less than 2,300 milligrams (mg) of sodium each day. If you have high blood pressure (hypertension), you may need to limit your sodium to 1,500 mg each day. Follow the tips below to help reduce your sodium intake. What do I need to know about cooking with less salt? Shopping ? Buy sodium-free or low-sodium products. Look for the following words on food labels: ? Low-sodium. ? Sodium-free. ? Reduced-sodium. ? No salt added. ? Unsalted. ? Buy fresh or frozen vegetables. Avoid canned vegetables. ? Avoid buying meats or protein foods that have been injected with broth or saline solution. ? Avoid cured or smoked meats, such as hot dogs, browning, salami, ham, and bologna. Reading food labels ? Check the food label before buying or using packaged ingredients. ? Look for products with no more than 140 mg of sodium in one serving. ? Do not choose foods with salt as one of the first three ingredients on the ingredients list. If salt is one of the first three ingredients, it usually means the item is high in sodium, because ingredients are listed in order of amount in the food item. Cooking ? Use herbs, seasonings without salt, and spices as substitutes for salt in foods. ? Use sodium-free baking soda when baking. ? Le[place]ey, braise, or roast foods to add flavor with less salt. ? Avoid adding salt to pasta, rice, or hot cereals while cooking. ? Drain and rinse canned vegetables before use. ? Avoid adding salt when cooking sweets and desserts. ? Cook with low-sodium ingredients. What are some salt alternatives? The following are herbs, seasonings, and spices that can be used instead of salt to give taste to your food. Herbs should be fresh or dried. Do not choose packaged mixes. Next to the name of the herb, spice, or seasoning are some examples of foods you can pair it with. Herbs ? [place] leaves ? Soups, meat and vegetable dishes, and spaghetti sauce. ? Basil ? Palestinian dishes, soups, pasta, and fish dishes. ? Cilantro ? Meat, poultry, and vegetable dishes. ? [place] powder ? Marinades and Uzbek dishes. ? Chives ? Salad dressings and potato dishes. ? Cumin ? Uzbek dishes, couscous, and meat dishes. ? Dill ? Fish dishes, sauces, and salads. ? Fennel ? Meat and vegetable dishes, breads, and cookies. ? Garlic (do not use garlic salt) ? Palestinian dishes, meat dishes, salad dressings, and sauces. ? Marjoram ? Soups, potato dishes, and meat dishes. ? Oregano ? Pizza and spaghetti sauce. ? Parsley ? Salads, soups, pasta, and meat dishes. ? Dalila ? Palestinian dishes, salad dressings, soups, and red meats. ? Saffron ? Fish dishes, pasta, and some poultry dishes. ? Marco A ? Stuffings and sauces. ? Tarragon ? Fish and poultry dishes. ? Thyme ? Stuffing, meat, and fish dishes. Seasonings ? Lemon juice ? Fish dishes, poultry dishes, vegetables, and salads. ? Vinegar ? Salad dressings, vegetables, and fish dishes. Spices ? Cinnamon ? Sweet dishes, such as cakes, cookies, and puddings. ? Cloves ? Gingerbread, puddings, and marinades for meats. ? Lepe ? Vegetable dishes, fish and poultry dishes, and stir-sr dishes. ? Lizzy ? Vegetables dishes, fish dishes, and stir-sr dishes. ? Nutmeg ? Pasta, vegetables, poultry, fish dishes, and custard. What are some low-sodium ingredients and foods? ? Fresh or frozen fruits and vegetables with no sauce added. ? Fresh or frozen whole meats, poultry, and fish with no sauce added. ? Eggs. ? Noodles, pasta, quinoa, rice. ? Shredded or puffed wheat or puffed rice. ? Regular or quick oats. ? Milk, yogurt, hard cheeses, and low-sodium cheeses. Good cheese choices include [place], [place] Obdulio, and mozzarella. Always check the label for the serving size and sodium content. ? Unsalted butter or margarine. ? Unsalted nuts. ? Sherbet or ice cream (keep to ? cup per serving). ? Homemade pudding. ? Sodium-free baking soda and baking powder. This is not a complete list of low-sodium ingredients and foods. Contact your dietitian for more options. Summary ? Cooking with less salt is one way to reduce the amount of sodium that you get from food. ? Buy sodium-free or low-sodium products. ? Check the food label before using or buying packaged ingredients. ? Use herbs, seasonings without salt, and spices as substitutes for salt in foods. This information is not intended to replace advice given to you by your health care provider. Make sure you discuss any questions you have with your health care provider. Document Released: 05/19/2006 Document Revised: 05/01/2018 Document Reviewed: 05/27/2017 [employer] Patient Education ? 2019 [employer]. Nephr (more content not included)... Normal [facility] TSHon 08-21-2022 TSH 4.750 uIU/mL Critically high 0.358-3.740 [facility] Comment on above: Performed By: #### T , CMP ####[facility] [address] [place] [address]Dr. Soniya Chi CBC AUTO DIFFon 08-20-2022 BASO # 0.0 103/ul Normal 0.0-0.1 [facility] Comment on above: Performed By: #### C BC ####[facility] X[address]jduuwnxg7[address] [place] [address]Dr. Soniya Chi Basophils/100 WBC (Bld) 0.3 % Normal 0.2-2.0 [facility] Comment on above: Performed By: #### C BC ####[facility] Mf[address]cfzecvp[address] [place] [address]Dr. Soniya Chi EO # 0.0 103/ul Normal 0.0-0.7 [facility] Comment on above: Performed By: #### C BC ####[facility] Hxoqukwkxt[address] [place] [address]Dr. Soniya Chi Eosinophils/100 WBC (Bld) 0.6 % Critically low 0.9-7. 0 [facility] Comment on above: Performed By: #### C BC ####[facility] Dalddymlxm[address] [place] [address]Dr. Soniya Chi Erythrocyte distribution wid th (RBC) [Ratio] 15.5 % Critically high 11.0-15.0 [facility] Comment on above: Performed By: #### C BC ####[facility] U[address] [place], [place] [address]Dr. Soniya Chi Hematocrit (Bld) [Volume fraction] 26.7 % Critically low 36.0-48.0 [facility] Comment on above: Performed By: #### C BC ####[facility] B[address]xqawjqm[address] [place], [place] [address]Dr. Soniya Chi Hemoglobin (Bld) [Mass/Vol] 8.7 g/dL Critically low 12.0 -16.0 [facility] Comment on above: Performed By: #### C BC ####[facility] Xxpf[address] [place], [place] [address]Dr. Soniya Chi IG # 0.02 10e3/ul Normal 0.00-0.03 [facility] Comment on above: Performed By: #### C BC ####[facility] Gesphcdmaz[address] [place], [place] [address]Dr. Soniya Chi IG % 0.3 % Normal 0.0-0.5 [facility] Comment on above: Performed By: #### C BC ####[facility] [address] [place], [place] [address]Dr. Soniya Chi LYMPH # 0.9 103/ul Critically low 1.2-3.8 [facility] Comment on above: Performed By: #### C BC ####[facility] [address]ftfapdc[address] [place], [place] [address]Dr. Soniya Chi Lymphocytes/100 WBC (Bld) 12.8 % Critically low 20.5-6 0.0 [facility] Comment on above: Performed By: #### C BC ####[facility] [address]yvuost[address] [place] [address]Dr. Soniya Chi MANUAL DIFF REQ NO Normal [facility] Comment on above: Performed By: #### C BC ####[facility] [address]byqms[address] [place] [address]Dr. Soniya Chi MCH (RBC) [Entitic mass] 30.7 pg Normal 26.7-34.0 [facility] Comment on above: Performed By: #### C BC ####[facility] Nxtowbqfur[address] [place] [address]Dr. Soniya Chi MCHC (RBC) [Mass/Vol] 32.6 g/dL Normal 29.9-35.2 [facility] Comment on above: Performed By: #### C BC ####[facility] Nbxnunciko[address] [place], [place] [address]Dr. Soniya Chi MCV (RBC) [Entitic vol] 94.3 fL Normal 81.0-99.0 [facility] Comment on above: Performed By: #### C BC ####[facility] Tjonjqyokk[address] [place], [place] [address]Dr. Soniya Chi MONO # 0.6 103/ul Normal 0.3-0.8 [facility] Comment on above: Performed By: #### C BC ####[facility] Yrereifaao43[address] [place] [address]Dr. Soniya Chi Monocytes/100 WBC (Bld) 9.4 % Normal 1.7-12.0 [facility] Comment on above: Performed By: #### C BC ####[facility] Ubflmghyhn68[address] [place] [address]Dr. Soniya Chi NEUT # 5.1 103/ul Normal 1.4-6.5 [facility] Comment on above: Performed By: #### C BC ####[facility] Whigsumyyb[address] [place], [place] [address]DrKarolina Chi Neutrophils/100 WBC (Bld) 76.6 % Critically high 43.0- 75.0 [facility] Comment on above: Performed By: #### C BC ####[facility] Bqpvpdfmfh09[address] [place] [address]Dr. Soniya Chi Platelet mean volume (Bld) [ Entitic vol] 11.6 fL Normal 9.5-13.5 [facility] Comment on above: Performed By: #### C BC ####[facility] Rpyjqvrfxv4422 [place] [address]Dr. Soniya Chi PLT 113 103/ul Critically low 150-450 [facility] Comment on above: Performed By: #### C BC ####[facility] Jjizjnhsyz13[address] [place] [address]Dr. Soniya Chi RBC 2.83 106/ul Critically low 4.20-5.40 [facility] Comment on above: Performed By: #### C BC ####[facility] Rdsdhzsnrw3969 [place] [address]Dr. Soniya Alon WBC 6.6 103/ul Normal 4.0-11.0 [facility] Comment on above: Performed By: #### C BC ####[facility] Amprowonms4[address] [place] [address]Dr. Soniya Chi CULTURE URINEon 08-20-2022 CULTURE URINE Normal [facility] Comment on above: Performed By: #### U RCX ####[facility] Oogeynnfss25[address] [place] [address]Dr. Soniya Chi Lab Reportson 08-20-2022 Lab Reports [id number] :127 Normal [facility] Lab Reports [id number]#1.00C D:127 Normal [facility] Lab Reports [id number]#1.00C D:127 Normal [facility] Outside [facility] Correspo ndenceon 08-20-2022 Outside [facility] Correspondence [id number]#1.00CD:127 Normal [facility] Outside Hospital Correspondence [id number]#1.00CD:127 Normal [facility] Outside Hospital Correspondence [id number]#1.00CD:127 Normal [facility] PROF 14(COMP METB)on 023 Albumin [Mass/Vol] 2.7 g/dL Critically low 3.4-5.0 [facility] Comment on above: Performed By: #### C MP, TSH ####[facility] Srvofzlnev[address] [place] [address]Dr. Soniya Chi Albumin/Globulin [Mass ratio] 0.9 {ratio} Normal [facility] Comment on above: Performed By: #### C LONI, TSH ####[facility] Qjuiuckini25[address] [place] [address]Dr. Soniya Chi ALP [Catalytic activity/Vol] 83 U/L Normal 46-116 [facility] Comment on above: Performed By: #### C MP, TSH ####[facility] Mycabwqykz03[address] [place] [address]Dr. Soniya Chi ALT [Catalytic activity/Vol] 29 U/L Normal 14-59 [facility] Comment on above: Performed By: #### C MP, TSH ####[facility] Htbbdllrwa0384 [place] [address]Dr. Soniya Chi Anion gap [Moles/Vol] 12.3 mmol/L Normal [facility] Comment on above: Performed By: #### C MP, TSH ####[facility] Oiriruibsd8252 [place] [address]Dr. Soniya Chi AST [Catalytic activity/Vol] 21 U/L Normal 15-37 [facility] Comment on above: Performed By: #### C MP, TSH ####[facility] Fmuvpjdwkx5396 [place] [address]Dr. Soniya Chi Bilirubin [Mass/Vol] 1.2 mg/dL Critically high 0.2-1.0 [facility] Comment on above: Performed By: #### C MP, TSH ####[facility] Yebycyndbb6226 [place] [address]Dr. Soniya Chi Calcium [Mass/Vol] 9.3 mg/dL Normal 8.5-10.1 [facility] Comment on above: Performed By: #### C MP, TSH ####[facility] Fnhxqyujcy6256 [place] [address]Dr. Soniya Chi Chloride [Moles/Vol] 109 mmol/L Critically high 98-107 [facility] Comment on above: Performed By: #### C MP, TSH ####[facility] Achnxbijjz[address] [place], [place] [address]Dr. Soniya Chi CO2 [Moles/Vol] 27.1 mmol/L Normal 21.0-32.0 [facility] Comment on above: Performed By: #### C MP, TSH ####[facility] Ahckpygndq039[address] [place], [place] [address]Dr. Soniya Chi Creatinine [Mass/Vol] 1.13 mg/dL Critically high 0.55-1.02 [facility] Comment on above: Performed By: #### C MP, TSH ####[facility] Mnrwrrysvi96[address] [place], [place] [address]Dr. Soniya Chi EGFR-AF SRI LANKAN 58 mL/min/1.73m2 Critically low >=60 [facility] Comment on above: Performed By: #### C MP, TSH ####[facility] Oqvxsxrdif[address] [place], [place] [address]Dr. Soniya Chi EGFR-NON AF SRI LANKAN 48 mL/min/1.73m2 Critically low >=60 [facility] Comment on above: Performed By: #### C MP, TSH ####[facility] Gxdtgtrwbr109[address] [place], [place] [address]Dr. Soniya Chi Globulin (S) [Mass/Vol] 3.1 g/dL Normal T [facility] Comment on above: Performed By: #### C MP, TSH ####[facility] Fyyfsgsuxy34[address] [place], [place] [address]Dr. Soniya Chi Glucose [Mass/Vol] 80 mg/dL Normal 74-106 [facility] Comment on above: Performed By: #### C MP, TSH ####[facility] Fbzyinrcks6774 [place] [address]Dr. Soniya Chi Potassium [Moles/Vol] 3.4 mmol/L Critically low 3.5-5.1 [facility] Comment on above: Performed By: #### C MP, TSH ####[facility] Orfovynsbf2160 [place] [address]Dr. Soniya Chi Protein [Mass/Vol] 5.8 g/dL Critically low 6.4-8.2 [facility] Comment on above: Performed By: #### C MP, TSH ####[facility] Jfatmmsdlq[address] [place], [place] [address]Dr. Soniya Chi Sodium [Moles/Vol] 145 mmol/L Normal 136-145 [facility] Comment on above: Performed By: #### C LONI, TSH ####[facility] Mhnssgdpyk[address] [place], [place] [address]Dr. Soniya Chi Urea nitrogen [Mass/Vol] 23.0 mg/dL Critically high 7.0-18 .0 [facility] Comment on above: Performed By: #### C MP, TSH ####[facility] Dxxqnmuide152[address] [place], [place] [address]Dr. Soniya Chi Urea nitrogen/Creatinine [Mass ratio] 20.4 mg/mg Normal [facility] Comment on above: Performed By: #### C MP, TSH ####[facility] Mhkbdkzkpr027[address] [place] [address]Dr. Soniya Chi TSHon 08-20-2022 TSH 6.050 uIU/mL Critically high 0.358-3.740 [facility] Comment on above: Performed By: #### C MP, TSH ####[facility] Lffetvllws[address] [place], [place] [address]Dr. Soniya Chi US THYROIDon 08-20-2022 US THYROID Normal [facility] ECHOCARDIO M/2D COMPLETEon 0 08-19-2022 ECHOCARDIO M/2D COMPLETE Normal [facility] PROF 14(COMP METB)on 023 Albumin [Mass/Vol] 2.8 g/dL Critically low 3.4-5.0 [facility] Comment on above: Performed By: #### T TIFFANIE, CMP ####[facility] Wawuhzdqwj4[address] [place] [address]Dr. Soniya Chi Albumin/Globulin [Mass ratio] 0.9 {ratio} Normal [facility] Comment on above: Performed By: #### T TIFFANIE, CMP ####[facility] Zultxfhioq7303 [place] [address]Dr. Soniya Chi ALP [Catalytic activity/Vol] 95 U/L Normal 46-116 [facility] Comment on above: Performed By: #### T TIFFANIE, CMP ####[facility] Tzfyrlevxu6752 [place] [address]Dr. Soniya Chi ALT [Catalytic activity/Vol] 33 U/L Normal 14-59 [facility] Comment on above: Performed By: #### T TIFFANIE, CMP ####[facility] Ebkvyzvmik2136 [place] [address]Dr. Soniya Chi Anion gap [Moles/Vol] 13.2 mmol/L Normal [facility] Comment on above: Performed By: #### T TIFFANIE, CMP ####[facility] Uziwofsvya7921 [place] [address]Dr. Soniya Chi AST [Catalytic activity/Vol] 25 U/L Normal 15-37 [facility] Comment on above: Performed By: #### T TIFFANIE, CMP ####[facility] Nnngvksepj6553 [place] [address]Dr. Soniya Chi Bilirubin [Mass/Vol] 1.1 mg/dL Critically high 0.2-1.0 [facility] Comment on above: Performed By: #### T TIFFANIE, CMP ####[facility] Spiedzojtr24[address] [place] [address]Dr. Soniya Chi Calcium [Mass/Vol] 9.4 mg/dL Normal 8.5-10.1 [facility] Comment on above: Performed By: #### T SH, CMP ####[facility] Uyjvvooodq2153 [place] [address]Dr. Soniya Chi Chloride [Moles/Vol] 110 mmol/L Critically high 98-107 [facility] Comment on above: Performed By: #### T SH, CMP ####[facility] Eqttjujzbh2380 [place] [address]Dr. Soniya Chi CO2 [Moles/Vol] 27.9 mmol/L Normal 21.0-32.0 [facility] Comment on above: Performed By: #### T SH, CMP ####[facility] Hqcjgbkswa6242 [place] [address]Dr. Soniya Chi Creatinine [Mass/Vol] 1.32 mg/dL Critically high 0.55-1.02 [facility] Comment on above: Performed By: #### T SH, CMP ####[facility] Oumwncjbyj[address] [place], [place] [address]Dr. Soniya Chi EGFR-AF SRI LANKAN 49 mL/min/1.73m2 Critically low >=60 [facility] Comment on above: Performed By: #### T SH, CMP ####[facility] Xgbkfqwguj[address] [place], [place] [address]Dr. Soniya Chi EGFR-NON AF SRI LANKAN 40 mL/min/1.73m2 Critically low >=60 [facility] Comment on above: Performed By: #### T SH, CMP ####[facility] Rzhqescqnm213[address] [place], [place] [address]Dr. Soniya Cih Globulin (S) [Mass/Vol] 3.1 g/dL Normal [facility] Comment on above: Performed By: #### T SH, CMP ####[facility] Slhbuvkvgx[address] [place], [place] [address]Dr. Soniya Chi Glucose [Mass/Vol] 87 mg/dL Normal 74-106 [facility] Comment on above: Performed By: #### T SH, CMP ####[facility] Kfcmeoyuww[address] [place], [place] [address]Dr. Soniya Chi Potassium [Moles/Vol] 4.1 mmol/L Normal 3.5-5.1 [facility] Comment on above: Performed By: #### T SH, CMP ####[facility] Xzplrnsnzf0216 [place] [address]Dr. Gypsyjuan Chi Protein [Mass/Vol] 5.9 g/dL Critically low 6.4-8.2 [facility] Comment on above: Performed By: #### T SH, CMP ####[facility] Ndbdpuvjkn9965 [place] [address]Dr. Soniya Chi Sodium [Moles/Vol] 147 mmol/L Critically high 136-145 [facility] Comment on above: Performed By: #### T SH, CMP ####[facility] V[address]wovmlpz[address] [place], [place] [address]Dr. Soniya Chi Urea nitrogen [Mass/Vol] 21.0 mg/dL Critically high 7.0-18 .0 [facility] Comment on above: Performed By: #### T SH, CMP ####[facility] Esbebsswfn[address] [place], [place] [address]Dr. Soniya Chi Urea nitrogen/Creatinine [Mass ratio] 15.9 mg/mg Normal [facility] Comment on above: Performed By: #### T SH, CMP ####[facility] Kpseuvnvpx[address] [place], [place] [address]Dr. Soniya Chi TSHon 08-19-2022 TSH 5.781 uIU/mL Critically high 0.358-3.740 [facility] Comment on above: Performed By: #### T SH, CMP ####[facility] Qsaxxesdjl[address] [place], [place] [address]Dr. Soniya Chi CT STROKE HEAD WOon 08-19-19 CT STROKE HEAD WO Normal [facility] UA RANDOM W/MICROSCOPICon BACTERIA MODERATE Abnormal NONE SEEN [facility] Comment on above: Performed By: #### U AMIC ####[facility] Lkyacwfewi3164 [place] [address]Dr. Soniya Chi Bilirubin Ql (U) Negative Normal NEGATIVE [facility] Comment on above: Performed By: #### U AMIC ####[facility] Uwhfgrbmdn6732 [place] [address]Dr. Soniya Chi CAST NONE SEEN Normal NONE SEEN [facility] Comment on above: Performed By: #### U AMIC ####[facility] Clfczzerpe94[address] [place], [place] [address]Dr. Soniya Chi Clarity (U) CLEAR Normal CLEAR [facility] Comment on above: Performed By: #### U AMIC ####[facility] Goemrulcfh135[address] [place], [place] [address]Dr. Soniya Chi Color (U) RED Abnormal YELLOW [facility] Comment on above: Performed By: #### U AMIC ####[facility] Guebsvsdhz[address] [place], [place] [address]Dr. Soniya Chi Crystals LM Nom (Urine sed) NONE SEEN Normal NONE SEE N [facility] Comment on above: Performed By: #### U AMIC ####[facility] Ddxlbyjnlf[address] [place], [place] [address]Dr. Soniya Chi Epithelial cells LM Ql (Urin e sed) NONE SEEN Normal NONE SEEN /RARE [facility] pital Comment on above: Performed By: #### U AMIC ####[facility] Sibwuoyoqa359[address] [place], [place] [address]Dr. Soniya Chi Glucose Ql (U) Negative Normal NEGATIVE [facility] Comment on above: Performed By: #### U AMIC ####[facility] Rkushabsek826[address] [place], [place] [address]Dr. Soniya Chi Hemoglobin Ql (U) LARGE Abnormal NEGATIVE [facility] Comment on above: Performed By: #### U AMIC ####[facility] Ihpefynkzl040[address] [place], [place] [address]Dr. Soniya Chi Ketones Ql (U) 40 mg/dl Abnormal NEGATIVE [facility] Comment on above: Performed By: #### U AMIC ####[facility] Iahwguduqe[address] [place], [place] [address]Dr. Soniya Chi LEUKOCYTES LARGE Abnormal NEGATIVE [facility] Comment on above: Performed By: #### U AMIC ####[facility] Hhvpgudyym0176 [place] [address]Dr. Soniya Chi MUCOUS NONE SEEN Normal NONE SEEN [facility] Comment on above: Performed By: #### U AMIC ####[facility] Iymbcvzseb045[address] [place], [place] [address]Dr. Soniya Chi Nitrite Ql (U) Positive Abnormal NEGATIVE [facility] Comment on above: Performed By: #### U AMIC ####[facility] Fqzoqikvvh299[address] [place], [place] [address]Dr. Soniya Chi pH (U) 5.5 [pH] Normal 5-9 [facility] Comment on above: Performed By: #### U AMIC ####[facility] Uwhjusfhpc[address] [place], [place] [address]Dr. Soniya Chi RBC (U) [#/Vol] /uL Abnormal 0-2 [facility] Comment on above: Performed By: #### U AMIC ####[facility] Csxcxrnfju418[address] [place], [place] [address]Dr. Soniya Chi SPEC GRAVITY >=1.030 Abnormal 1.005-<=1.025 [facility] Comment on above: Performed By: #### U AMIC ####[facility] Kufbzwmbni[address] [place], [place] [address]Dr. Soniya Chi UA PROTEIN 100 mg/dl Abnormal NEGATIVE/ TRACE [facility] Comment on above: Performed By: #### U AMIC ####[facility] Uyxbjinbni318[address] [place], [place] [address]Dr. Soniya Chi Urobilinogen Qn (U) 1.0 {Casimiro'U}/dL Normal 0.2 - 1. 0 [facility] Comment on above: Performed By: #### U AMIC ####[facility] Bigkzrqgto26[address] [place], [place] [address]Dr. Soniya Chi WBC (U) [#/Vol] /uL Abnormal NONE SEEN [facility] Comment on above: Performed By: #### U AMIC ####[facility] Dbchuspbdw874[address] [place], [place] [address]Dr. Soniya Chi CBC AUTO DIFFon 08-17-2022 BASO # 0.0 103/ul Normal 0.0-0.1 [facility] Comment on above: Performed By: #### C BC ####[facility] Bvcycpnubd0268 [place] [address]Dr. Soniya Chi Basophils/100 WBC (Bld) 0.2 % Normal 0.2-2.0 [facility] Comment on above: Performed By: #### C BC ####[facility] Eqpxpiqkeh[address] [place], [place] [address]Dr. Soniya Chi EO # 0.0 103/ul Normal 0.0-0.7 [facility] Comment on above: Performed By: #### C BC ####[facility] Qpmhuscxex13[address] [place], [place] [address]Dr. Soniya Chi Eosinophils/100 WBC (Bld) 0.6 % Critically low 0.9-7. 0 [facility] Comment on above: Performed By: #### C BC ####[facility] Qruuxwvtit299[address] [place], [place] [address]Dr. Soniya Chi Erythrocyte distribution wid th (RBC) [Ratio] 15.1 % Critically high 11.0-15.0 [facility] Comment on above: Performed By: #### C BC ####[facility] Hfaohmzmey[address] [place], [place] [address]Dr. Soniya Chi Hematocrit (Bld) [Volume fraction] 30.0 % Critically low 36.0-48.0 [facility] Comment on above: Performed By: #### C BC ####[facility] Jnutxmwuby[address] [place], [place] [address]Dr. Soniya Chi Hemoglobin (Bld) [Mass/Vol] 9.8 g/dL Critically low 12.0 -16.0 [facility] Comment on above: Performed By: #### C BC ####[facility] Pgylolwira[address] [place], [place] [address]Dr. Soniya Chi IG # 0.02 10e3/ul Normal 0.00-0.03 [facility] Comment on above: Performed By: #### C BC ####[facility] Wphawgxemn05[address] [place] [address]Dr. Soniya Chi IG % 0.4 % Normal 0.0-0.5 [facility] Comment on above: Performed By: #### C BC ####[facility] Kgaduaevcd2898 [place] [address]Dr. Soniya Chi LYMPH # 0.8 103/ul Critically low 1.2-3.8 [facility] Comment on above: Performed By: #### C BC ####[facility] Famsidugvs9762 [place] [address]Dr. Soniya Chi Lymphocytes/100 WBC (Bld) 16.1 % Critically low 20.5-6 0.0 [facility] Comment on above: Performed By: #### C BC ####[facility] Grclpexfto[address] [place] [address]Dr. Soniya Chi MANUAL DIFF REQ NO Normal [facility] Comment on above: Performed By: #### C BC ####[facility] Qlnpjqmaos7916 [place] [address]Dr. Soniya Chi MCH (RBC) [Entitic mass] 30.3 pg Normal 26.7-34.0 [facility] Comment on above: Performed By: #### C BC ####[facility] Qewgplrhbg2334 [place] [address]Dr. Soniya Chi MCHC (RBC) [Mass/Vol] 32.7 g/dL Normal 29.9-35.2 [facility] Comment on above: Performed By: #### C BC ####[facility] Ovfefqxxrp2293 [place] [address]Dr. Soniya Chi MCV (RBC) [Entitic vol] 92.9 fL Normal 81.0-99.0 [facility] Comment on above: Performed By: #### C BC ####[facility] Vhikgdkbeu8625 [place] [address]Dr. Soniya Chi MONO # 0.4 103/ul Normal 0.3-0.8 [facility] Comment on above: Performed By: #### C BC ####[facility] Tpiinsnmuf2346 [place], [place] [address]Am. Soniya Chi Monocytes/100 WBC (Bld) 8.1 % Normal 1.7-12.0 [facility] Comment on above: Performed By: #### C BC ####[facility] Japgvbuymt1205 [place], [place] [address]Zw. Soniya Chi NEUT # 3.6 103/ul Normal 1.4-6.5 [facility] Comment on above: Performed By: #### C BC ####[facility] Rwqasqthok101[address] [place] [address]Dr. Soniya Chi Neutrophils/100 WBC (Bld) 74.6 % Normal 43.0-75.0 [facility] Comment on above: Performed By: #### C BC ####[facility] Ltalifozrs1798 [place] [address]Dr. Soniya Chi Platelet mean volume (Bld) [ Entitic vol] 10.6 fL Normal 9.5-13.5 [facility] Comment on above: Performed By: #### C BC ####[facility] Kgatmiandt0023 [place] [address]Dr. Soniya Chi PLT 116 103/ul Critically low 150-450 [facility] Comment on above: Performed By: #### C BC ####[facility] Ergyyyfhgk3761 [place] [address]Dr. Soniya Chi RBC 3.23 106/ul Critically low 4.20-5.40 [facility] Comment on above: Performed By: #### C BC ####[facility] Sqixyoevee9390 [place], [place] [address]So. Soniya Chi WBC 4.8 103/ul Normal 4.0-11.0 [facility] Comment on above: Performed By: #### C BC ####[facility] Ylvhltoezu1574 [place] [address]Dr. Soniya Chi CULTURE URINEon 08-17-2022 CULTURE URINE Normal [facility] Comment on above: Performed By: #### U RCX ####[facility] Rammrdccsn[address] [place], [place] [address]Dr. Soniya Chi ACETONE SERUMon 08-16-2022 ACETONE Negative Normal NEGATIVE [facility] Comment on above: Performed By: #### A CETON ####[facility] [address]qsiqocxa[address] [place], [place] [address]Dr. Soniya Alon AMMONIAon 08-16-2022 Ammonia (P) [Mass/Vol] ug/dL Critically low 11-32 [facility] Comment on above: Performed By: #### A MM ####[facility] Mvfgwkwxsh[address] [place], [place] [address]Dr. Soniya Chi CBC AUTO DIFFon 08-16-2022 BASO # 0.0 103/ul Normal 0.0-0.1 [facility] Comment on above: Performed By: #### C BC ####[facility] [address] [place], [place] [address]DrKarolina Chi Basophils/100 WBC (Bld) 0.2 % Normal 0.2-2.0 [facility] Comment on above: Performed By: #### C BC ####[facility] Jwmizyoega[address] [place], [place] [address]Dr. Soniya Chi EO # 0.1 103/ul Normal 0.0-0.7 [facility] Comment on above: Performed By: #### C BC ####[facility] Gspckqulfy[address] [place], [place] [address]Dr. Soniya Chi Eosinophils/100 WBC (Bld) 1.0 % Normal 0.9-7.0 The [facility] Comment on above: Performed By: #### C BC ####[facility] Xmhomzmedg[address] [place], [place] [address]DrKarolina Chi Erythrocyte distribution wid th (RBC) [Ratio] 15.3 % Critically high 11.0-15.0 The [facility] pital Comment on above: Performed By: #### C BC ####[facility] Upvcytrvun[address] [place], [place] [address]Dr. Soniya Chi Hematocrit (Bld) [Volume fraction] 31.2 % Critically low 36.0-48.0 [facility] Comment on above: Performed By: #### C BC ####[facility] [address] [place] [address]Dr. Soniya Chi Hemoglobin (Bld) [Mass/Vol] 10.3 g/dL Critically low 12.0 -16.0 The [facility] Comment on above: Performed By: #### C BC ####[facility] [address]arsofuuxq[address] [place] [address]Dr. Soniya Chi IG # 0.01 10e3/ul Normal 0.00-0.03 The [facility] Comment on above: Performed By: #### C BC ####[facility] Biqahdzauo[address] [place] [address]Dr. Soniya Chi IG % 0.2 % Normal 0.0-0.5 The [facility] Comment on above: Performed By: #### C BC ####[facility] Vgfafytxuw[address] [place], [place] [address]DrKarolina Chi LYMPH # 0.8 103/ul Critically low 1.2-3.8 [facility] Comment on above: Performed By: #### C BC ####[facility] L[address]kycnsond4[address] [place] [address]Dr. Soniya Chi Lymphocytes/100 WBC (Bld) 14.5 % Critically low 20.5-6 0.0 The [facility] Comment on above: Performed By: #### C BC ####[facility] [address]qycove[address] [place] [address]DrKarolina Chi MANUAL DIFF REQ NO Normal The [facility] Comment on above: Performed By: #### C BC ####[facility] Jhcsyiteka[address] [place], [place] [address]DrKarolina Chi MCH (RBC) [Entitic mass] 30.7 pg Normal 26.7-34.0 The [facility] Comment on above: Performed By: #### C BC ####[facility] Nmltxfbdgx[address] [place], [place] [address]Dr. Soniya Chi MCHC (RBC) [Mass/Vol] 33.0 g/dL Normal 29.9-35.2 The [facility] Comment on above: Performed By: #### C BC ####[facility] [address]ovsyryo[address] [place] [address]Dr. Soniya Chi MCV (RBC) [Entitic vol] 93.1 fL Normal 81.0-99.0 [facility] Comment on above: Performed By: #### C BC ####[facility] Kvyzlliacw[address] [place] [address]Dr. Soniya Chi MONO # 0.3 103/ul Normal 0.3-0.8 The [facility] Comment on above: Performed By: #### C BC ####[facility] Rzylsswntq90[address] [place] [address]Dr. Soniya Chi Monocytes/100 WBC (Bld) 5.7 % Normal 1.7-12.0 [facility] Comment on above: Performed By: #### C BC ####[facility] Nfxpfzcbky[address] [place], [place] [address]Dr. Soniya Chi NEUT # 4.6 103/ul Normal 1.4-6.5 The [facility] Comment on above: Performed By: #### C BC ####[facility] Jfsnjiddcu82[address] [place], [place] [address]Dr. Soniya Chi Neutrophils/100 WBC (Bld) 78.4 % Critically high 43.0- 75.0 The [facility] Comment on above: Performed By: #### C BC ####[facility] Jtixhsydva[address] [place] [address]Dr. Soniya Chi Platelet mean volume (Bld) [ Entitic vol] 10.3 fL Normal 9.5-13.5 The [facility] Comment on above: Performed By: #### C BC ####[facility] Snyucoyiin[address] [place] [address]Dr. Soniya Chi PLT 123 103/ul Critically low 150-450 [facility] Comment on above: Performed By: #### C BC ####[facility] Vngrhrrbwh[address]3 [place], [place] [address]Lr. Soniya Chi RBC 3.35 106/ul Critically low 4.20-5.40 The [facility] Comment on above: Performed By: #### C BC ####[facility] Jmaxocwtlj2987 [place], [place] [address]An. Soniya Chi WBC 5.8 103/ul Normal 4.0-11.0 [facility] ospital Comment on above: Performed By: #### C BC ####[facility] Xkhfxtgutx9[address] [place] [address]Dr. Soniya Chi CPKon 08-16-2022 CK [Catalytic activity/Vol] 32 U/L Normal 26-192 The [facility] Comment on above: Performed By: #### T SH, CK, HSTROPN, CMP ####[facility] Glfjwwmtpd[address] [place] [address]Dr. Soniya Chi CT STROKE HEAD WOon 08-17-[address] STROKE HEAD WO Normal The [facility] CULTURE BLOODon 08-16-2022 Microscopic examination of blood, culture Culture Observations: NO GROWTH AT 5 DAYS. Normal [facility] Comment on above: Performed By: #### B LDCX1 ####[facility] Tstmzsfndn93[address] [place] [address]Dr. Soniya Chi Microscopic examination of blood, culture Culture Observations: NO GROWTH AT 5 DAYS. Normal [facility] Comment on above: Performed By: #### B LDCX2 ####[facility] L[address]ukgyxwsu58[address] [place] [address]Dr. Soniya Chi Covid-19 PCR (CVDTBH)on 07-31 SARS-CoV-2 (COVID-19) RNA DORIAN+probe Ql (Unsp spec) Not detected Normal NOT DETECTED The [facility] Comment on above: Result Comment: When diagnostic testing is negative, the possibility of a false negative should be considered inthe context of a patient's recent exposures and the presence of clinical signs and symptomsconsistent with SARS-CoV-2.This test is not yet approved or cleared by the [place] FDA. When there are no FDA-approved or cleared tests available, and other criteria are met, FDA can make tests available under an emergency access mechanism called an Emergency Use Authorization (EUA). The EUA for this test is supported by the [place] of Health and Human Service's declaration that circumstances exist to justify the emergency use of in vitro diagnostics for the detection and/or diagnosis of the virus that causes COVID-19. This EUA will remain in effect for the duration of the COVID-19 declaration justifying emergency of IVDs, unless it is terminated or revoked by the FDA (after which the test may no longer be used). Performed By: #### C VDTBH ####[facility] Prvdfihnkj14[address] [place], [place] [address]Dr. Soniya Chi DRUG SCREEN RAPID (URINE)on 08-16-2022 AMP Negative Normal NEGATIVE [facility] Comment on above: Performed By: #### E RUR, DRUGRPD ####[facility] Igziuxbttq374[address] [place], [place] [address]Dr. Soniya Chi BAR Negative Normal NEGATIVE [facility] Comment on above: Performed By: #### E RUR, DRUGRPD ####[facility] Kcvydpsscl[address] [place], [place] [address]Dr. Soniya Chi BUP Negative Normal NEGATIVE [facility] Comment on above: Performed By: #### E RUR, DRUGRPD ####[facility] Wqfekdxxuv47[address] [place], [place] [address]Dr. Soniya Chi BZO Negative Normal NEGATIVE [facility] Comment on above: Performed By: #### E RUR, DRUGRPD ####[facility] Eotjnplluw189[address] [place], [place] [address]Dr. Soniya Chi MARIAH Negative Normal NEGATIVE [facility] Comment on above: Performed By: #### E RUR, DRUGRPD ####[facility] Sqlsdgpuny[address] [place], [place] [address]Dr. Soniya Chi CUT-OFFS SEE BELOW Normal [facility] Comment on above: Result Comment: AMP (Amphetamine): 500ng/mL, BAR (Barbituates): 200 ng/mL, BZO (Benzodiazepines): 150 ng/mL, BUP (Buprenorphine): 10 ng/mL, MARIAH (Cocaine): 150 ng/mL, mAMP (Methamphetamine): 500 ng/mL, MTD (Methadone): 200 ng/mL, OPI (Opiates): 100 ng/mL, OXY (Oxycodone): 100 ng/mL, PCP (Phencyclidine): 25 ng/mL, PPX (Propoxyphene): 300 ng/mL, THC (Cannabinoids): 50 ng/mL, TCA (Trycyclic Antidepressants): 300 ng/mL Performed By: #### E RUR, DRUGRPD ####[facility] Bjhocncumv[address] [place], [place] [address]Dr. Soniya Chi DRUG CUT HEADER DRUG CLASS TEST SYST EM CUT-OFF CONCENTRATIONS ARE FOLLOWS: Normal The [facility] Comment on above: Performed By: #### E RUR, DRUGRPD ####[facility] Sbokhiqwhu[address] [place], [place] [address]Dr. Gypsyjuan Chi mAMP Negative Normal NEGATIVE [facility] Comment on above: Performed By: #### E RUR, DRUGRPD ####[facility] Pseatljtcr[address] [place], [place] [address]Dr. Soniya Chi MTD Negative Normal NEGATIVE [facility] Comment on above: Performed By: #### E RUR, DRUGRPD ####[facility] Npuwoubmcj[address] [place], [place] [address]Dr. Soniya Chi OPI Negative Normal NEGATIVE [facility] Comment on above: Performed By: #### E RUR, DRUGRPD ####[facility] Vysdstohdf[address] [place], [place] [address]Dr. Soniya Chi OXY Negative Normal NEGATIVE [facility] Comment on above: Performed By: #### E RUR, DRUGRPD ####[facility] Ldwgcahsbn[address] [place], [place] [address]Dr. Soniya Chi PCP Negative Normal NEGATIVE [facility] Comment on above: Performed By: #### E RUR, DRUGRPD ####[facility] Wswhiqynhb[address] [place], [place] [address]Dr. Soniya Chi PPX Negative Normal NEGATIVE [facility] Comment on above: Performed By: #### Benoit CARTER DRUGRPD ####[facility] Nlcyxammxa[address] [place], [place] [address]Dr. Soniya Chi TCA Negative Normal NEGATIVE [facility] Comment on above: Performed By: #### Benoit CARTER DRUGRPD ####[facility] Zhsplpbzqn[address] [place], [place] [address]Dr. Soniya Chi THC Negative Normal NEGATIVE [facility] Comment on above: Performed By: #### Benoit CARTER DRUGRPD ####[facility] Ndwkvwxdpv924[address] [place], [place] [address]Dr. Soniya Chi ER URINE PROFILEon 3 Bilirubin Ql (U) Negative Normal NEGATIVE The [facility] Comment on above: Performed By: #### Benoit CARTER DRUGRPD ####[facility] Mxikjdjhcd[address] [place], [place] [address]Dr. Soniya Chi Clarity (U) CLEAR Normal CLEAR The [facility] Comment on above: Performed By: #### Benoit CARTER DRUGRPD ####[facility] Pgdjaeptlv[address] [place], [place] [address]Dr. Soniya Chi Color (U) LT. YELLOW Normal YELLOW [facility] Comment on above: Performed By: #### Benoit CARTER DRUGRPD ####[facility] Lmaexupkzo[address] [place], [place] [address]Dr. Soniya Chi ERUAHD A micrscopic examina tion will be performed if indicated. Normal The [facility] l Comment on above: Performed By: #### Benoit CARTER DRUGRPD ####[facility] Wxdeykzqmm[address] [place], [place] [address]Dr. Soniya Chi Glucose Ql (U) Negative Normal NEGATIVE [facility] Comment on above: Performed By: #### Benoit RUCharles DRUGRPD ####[facility] Uvnogehebp402[address] [place], [place] [address]Dr. Soniya Chi Hemoglobin Ql (U) Negative Normal NEGATIVE The [facility] Comment on above: Performed By: #### E RUR, DRUGRPD ####[facility] [address]zsfuy[address] [place] [address]Dr. Soniya Chi Ketones Ql (U) Negative Normal NEGATIVE [facility] Comment on above: Performed By: #### E RUR, DRUGRPD ####[facility] Vrooslhyln64[address] [place] [address]Dr. Soniya Chi LEUKOCYTES Negative Normal NEGATIVE [facility]al Comment on above: Performed By: #### E RUR, DRUGRPD ####[facility] Ddprqslwnw[address] [place], [place] [address]Dr. Soniya Chi Nitrite Ql (U) Negative Normal NEGATIVE [facility] Comment on above: Performed By: #### E RUR, DRUGRPD ####[facility] Kuiawflanp[address] [place], [place] [address]Dr. Soniya Chi pH (U) 7.0 [pH] Normal 5-9 The [facility] Comment on above: Performed By: #### Benoit RUR, DRUGRPD ####[facility] Mnjmvjoocf[address] [place], [place] [address]Dr. Soniya Chi SPEC GRAVITY 1.005 Normal 1.005-<=1.025 The [facility] Comment on above: Performed By: #### E RUR, DRUGRPD ####[facility] Pchpsstsec[address] [place], [place] [address]Dr. Gypsyjuan Chi UA PROTEIN Negative Normal NEGATIVE/ TRACE The [facility] Comment on above: Performed By: #### E RUR, DRUGRPD ####[facility] Zrigjogsor84[address] [place], [place] [address]Dr. Gypsyjuan Chi UR MICRO IND NOT INDICATED Normal The [facility] Comment on above: Performed By: #### E RUR, DRUGRPD ####[facility] Tyrjhswnhu[address] [place], [place] [address]Dr. Soniya Chi Urobilinogen Qn (U) 0.2 {Casimiro'U}/dL Normal 0.2 - 1. 0 The [facility] Comment on above: Performed By: #### E RUR, DRUGRPD ####[facility] Xukpwyvnem[address] [place], [place] [address]Dr. Soniya Chi FREE T3on 08-16-2022 FREE T3 2.61 pg/mlL Normal 2.18-3.98 The [facility] Comment on above: Performed By: #### F T3 ####[facility] Nhetddnwge[address] [place], [place] [address]Dr. Soniya Chi FREE T4on 08-16-2022 Free T4 [Mass/Vol] 0.82 ng/dL Normal 0.76-1.46 The [facility] Comment on above: Performed By: #### F T4 ####[facility] Qtvexvegef2599[address] [place], [place] [address]Dr. Gypsyjuan Alon LACTATE/LACTIC ACIDon 2022 Lactate [Moles/Vol] 1.1 mmol/L Normal 0.4-2.[address] [facility] Comment on above: Performed By: #### L ACT ####[facility] Bzwzsxiyjj[address] [place], [place] [address]Dr. Soniya Alon PH VENOUS BLOODon 08-16-2022 PCO2 VENOUS 58.3 mmHg Critically high 40.0-52.0 The [facility] Comment on above: Performed By: #### P HVEN ####[facility] G[address]sxdkhvz[address] [place] [address]Dr. Gypsyjuan Alon pH VENOUS 7.365 Normal 7.330-7.430 The [facility] Comment on above: Performed By: #### P HVEN ####[facility] Waufsweogh[address] [place], [place] [address]Dr. Soniya Chi PROF 14(COMP METB)on 023 Albumin [Mass/Vol] 3.6 g/dL Normal 3.4-5.0 The [facility] Comment on above: Performed By: #### T SH, CK, HSTROPN, CMP ####[facility] Ytfagqvcre[address] [place], [place] [address]Dr. Soniya Chi Albumin/Globulin [Mass ratio] 1.0 {ratio} Normal The [facility] Comment on above: Performed By: #### T SH, CK, HSTROPN, CMP ####[facility] Sp[address]uhsuyv[address] [place] [address]Dr. Soniya Chi ALP [Catalytic activity/Vol] 115 U/L Normal 46-116 The [facility] Comment on above: Performed By: #### T SH, CK, HSTROPN, CMP ####[facility] J[address]xppawcz32[address] [place] [address]Dr. Soniya Chi ALT [Catalytic activity/Vol] 48 U/L Normal 14-59 [facility] Comment on above: Performed By: #### T SH, CK, HSTROPN, CMP ####[facility] Ayfngyfijk[address] [place], [place] [address]Dr. Soniya Chi Anion gap [Moles/Vol] 9.7 mmol/L Normal [facility] Comment on above: Performed By: #### T SH, CK, HSTROPN, CMP ####[facility] Ilaahocqyv[address] [place], [place] [address]Dr. Soniya Chi AST [Catalytic activity/Vol] 26 U/L Normal 15-37 [facility] Comment on above: Performed By: #### T SH, CK, HSTROPN, CMP ####[facility] Sazcjtyyyx[address] [place] [address]Dr. Soniya Chi Bilirubin [Mass/Vol] 0.7 mg/dL Normal 0.2-1.0 [facility] Comment on above: Performed By: #### T SH, CK, HSTROPN, CMP ####[facility] Vqvsadhjsf[address] [place], [place] [address]Dr. Soniya Chi Calcium [Mass/Vol] 10.1 mg/dL Normal 8.5-10.1 The [facility] Comment on above: Performed By: #### T SH, CK, HSTROPN, CMP ####[facility] Qfczudksgl2754 [place] [address]Dr. Soniya Chi Chloride [Moles/Vol] 104 mmol/L Normal 98-107 The [facility] Comment on above: Performed By: #### T SH, CK, HSTROPN, CMP ####[facility] Nnckqjgvfd4[address] [place] [address]Dr. Soniya Chi CO2 [Moles/Vol] 34.6 mmol/L Critically high 21.0-32.0 [facility] Comment on above: Performed By: #### T SH, CK, HSTROPN, CMP ####[facility] Fsytywpajl[address] [place] [address]Dr. Soniya Chi Creatinine [Mass/Vol] 1.27 mg/dL Critically high 0.55-1.02 [facility] Comment on above: Performed By: #### T SH, CK, HSTROPN, CMP ####[facility] Hjnwvvlwlv[address] [place], [place] [address]Dr. Soniya Chi EGFR-AF SRI LANKAN 51 mL/min/1.73m2 Critically low >=60 [facility] Comment on above: Performed By: #### T SH, CK, HSTROPN, CMP ####[facility] Iyxkoowoee[address] [place], [place] [address]Dr. Soniya Chi EGFR-NON AF SRI LANKAN 42 mL/min/1.73m2 Critically low >=60 [facility] Comment on above: Performed By: #### T SH, CK, HSTROPN, CMP ####[facility] Goojipasvt[address] [place] [address]Dr. Soniya Chi Globulin (S) [Mass/Vol] 3.6 g/dL Normal [facility] Comment on above: Performed By: #### T SH, CK, HSTROPN, CMP ####[facility] F[address]igksdic[address] [place] [address]Dr. Soniya Chi Glucose [Mass/Vol] 100 mg/dL Normal 74-106 [facility] Comment on above: Performed By: #### T SH, CK, HSTROPN, CMP ####[facility] Xbzlhitwdh32[address] [place] [address]Dr. Soniya Chi Potassium [Moles/Vol] 4.3 mmol/L Normal 3.5-5.1 [facility] Comment on above: Performed By: #### T SH, CK, HSTROPN, CMP ####[facility] Uvmpfqsieb6[address] [place] [address]Dr. Soniya Chi Protein [Mass/Vol] 7.2 g/dL Normal 6.4-8.2 [facility] Comment on above: Performed By: #### T SH, CK, HSTROPN, CMP ####[facility] Buhzmomrek[address] [place], [place] [address]Dr. Soniya Chi Sodium [Moles/Vol] 144 mmol/L Normal 136-145 The [facility] Comment on above: Performed By: #### T SH, CK, HSTROPN, CMP ####[facility] Uhpdfambzn[address] [place], [place] [address]Dr. Soniya Chi Urea nitrogen [Mass/Vol] 24.0 mg/dL Critically high 7.0-18 .0 [facility] Comment on above: Performed By: #### T SH, CK, HSTROPN, CMP ####[facility] Luzxswpsyo[address] [place], [place] [address]Dr. Soniya Chi Urea nitrogen/Creatinine [Mass ratio] 18.9 mg/mg Normal The [facility] Comment on above: Performed By: #### T SH, CK, HSTROPN, CMP ####[facility] Ytjyfhunvk[address] [place], [place] [address]Dr. Soniya Chi PROTIMEon 08-16-2022 INR Coag (PPP) [Relative time] 0.97 {INR} Normal The [facility] Comment on above: Performed By: #### P TT, PT ####[facility] Vhrnutirnr[address] [place], [place] [address]Dr. Soniya Chi INR GUIDELINES SEE BELOW Normal [facility] Comment on above: Result Comment: SHARON RED INR: 2.0 - 3.0 CONDITIONS NOT LISTED BELOW 2.5 - 3.5 FOR PROSTHETIC HEART VALVE REPLACEMENT 2.5 - 3.5 RECURRENT THROMBOSIS Performed By: #### P TT, PT ####[facility] Uwqrlahckh[address] [place], [place] [address]Dr. Soniya Chi PT Coag (PPP) [Time] 10.3 s Normal 9.0-11.6 [facility] Comment on above: Performed By: #### P TT, PT ####[facility] [address]vzjan[address] [place] [address]Dr. Soniya Chi PTTon 08-16-2022 aPTT Coag (Bld) [Time] 33.1 s Normal 22.3-36.2 Th e [facility] Comment on above: Performed By: #### P TT, PT ####[facility] Qthfjxahnk[address] [place] [address]Dr. Soniya Chi TROPONIN, HIGH SENSITIVITYon 08-16-2022 HSTROP 9.8 pg/mL Normal 4.0-51.3 [facility] Comment on above: Result Comment: CUT- OFF POINTS HAVE BEEN ESTABLISHED BASED ON THE FOURTH UNIVERSAL DEFINITIONS OF MYOCARDIALINFARCTION. THE UPPER REFERENCE LIMIT (URL) OF TROPONIN, DEFINED THE 99TH PERCENTILE OFcTnI DISTRIBUTION IN A REFERENCE POPULATION, HAS BEEN CONFIRMED THE DECISION THRESHOLDFOR DC DIAGNOSIS. Performed By: #### T SH, CK, HSTROPN, CMP ####[facility] [address] [place] [address]Dr. Soniya Chi TSHon 08-16-2022 TSH 7.844 uIU/mL Critically high 0.358-3.740 The [facility] Comment on above: Performed By: #### T SH, CK, HSTROPN, CMP ####[facility] [address]acbq[address] [place] [address]Dr. 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 Soniya Chi Clarity (U) CLEAR Normal CLEAR The [facility] Comment on above: Performed By: #### U ACSMARCOS SMITH ####[facility] [address]uf[address] [place] [address]Dr. Soniya Chi Color (U) LT. YELLOW Normal YELLOW [facility] Comment on above: Performed By: #### U ACSLUIS, UMICRO ####[facility] Zwfcaf[address]fbh[address] [place] [address]Dr. Soniya Chi Glucose Ql (U) Negative Normal NEGATIVE [facility] Comment on above: Performed By: #### U ACSLUIS, UMICRO ####[facility] [address]kxx[address]cx[address] [place], [place] [address]Dr. Soniya Chi Hemoglobin Ql (U) Negative Normal NEGATIVE The [facility] Comment on above: Performed By: #### U ACSLUIS UMICRO ####[facility] [address]dsr[address] [place], [place] [address]Dr. Soniya Chi Ketones Ql (U) Negative Normal NEGATIVE [facility] Comment on above: Performed By: #### U ACSLUIS UMICRO ####[facility] Wvzmothzec256491 [address] [place], [place] [address]Dr. Soniya Chi LEUKOCYTES MODERATE Abnormal NEGATIVE [facility] Comment on above: Performed By: #### U ACSLUIS ICRO ####[facility] Xbxdvwsuch[address] [place], [place] [address]Dr. Gypsyjuan Chi Nitrite Ql (U) Negative Normal NEGATIVE [facility] Comment on above: Performed By: #### U ACSLUIS, UMICRO ####[facility] Mhlcjyurvd[address] [place], [place] [address]Dr. Soniya Chi pH (U) 5.5 [pH] Normal 5-9 [facility] Comment on above: Performed By: #### U ACSLUIS, UMICRO ####[facility] Tjpokkwihr[address] [place], [place] [address]Dr. Soniya Chi SPEC GRAVITY <=1.005 Abnormal 1.005-<=1.025 The [facility] Comment on above: Performed By: #### U ACSIND, UMICRO ####[facility] Upitldoqhu[address] [place], [place] [address]Dr. Soniya Chi UA PROTEIN Negative Normal NEGATIVE/ TRACE [facility] Comment on above: Performed By: #### U ACSLUIS, UMICRO ####[facility] Ebseqfslfw[address] [place] [address]Dr. Soniya Chi UR MICRO IND INDICATED Normal The [facility] Comment on above: Performed By: #### U ACSLUIS, UMICRO ####[facility] Fbrkbimich[address] [place] [address]Dr. Soniya Chi Urobilinogen Qn (U) 0.2 {Casimiro'U}/dL Normal 0.2 - 1. 0 The [facility] Comment on above: Performed By: #### U ACSLUIS UMICRO ####[facility] Klitzfyskj[address] [place] [address]Dr. Soniya Chi URINE MICROSCOPIC ONLYon BACTERIA TRACE Abnormal NONE SEEN [facility] Comment on above: Performed By: #### U ACSLUIS UMICRO ####[facility] Vbjqsyppoa[address] [place], [place] [address]Dr. Soniya Chi Bacteria identified Cx Nom (U) INDICATED Normal The [facility] Comment on above: Performed By: #### U ACSLUIS UMICRO ####[facility] Setrzdnost89[address] [place], [place] [address]Dr. Soniya Chi CAST NONE SEEN Normal NONE SEEN The [facility] Comment on above: Performed By: #### U ACSLUIS, UMICRO ####[facility] Cvjpedslws[address] [place] [address]Dr. Soniya Chi Crystals LM Nom (Urine sed) NONE SEEN Normal NONE SEE N The [facility] Comment on above: Performed By: #### U ACSLUIS, UMICRO ####[facility] Nxlqjrpjxu49[address] [place] [address]Dr. Soniya Chi Epithelial cells LM Ql (Urine sed) RARE Normal N ONE SEEN /RARE The [facility] Comment on above: Performed By: #### U ACSIND, UMICRO ####[facility] Mnykyyuije[address] [place] [address]Dr. Soniya Chi MUCOUS NONE SEEN Normal NONE SEEN [facility] Comment on above: Performed By: #### [facility], ICRO ####[facility] Vikdeucddn4[address] [place] [address]Dr. Soniya Chi RBC NONE SEEN Abnormal 0-2 [facility] Comment on above: Performed By: #### U ACSLUIS, UMICRO ####[facility] Fwdcvcywds[address] [place] [address]Dr. Soniya Chi WBC 5-10 Abnormal NONE SEEN [facility] Comment on above: Performed By: #### U ACSLUIS [facility] ####[facility] Fnypxbuqct[address] [place], [place] [address]Dr. Soniya Chi Lab Reportson 08-14-2022 Lab Reports [id number] D:127 Normal [facility] Physician Referralon 023 Physician Referral [id number]:127 Normal [facility] CBC AUTO DIFFon 08-13-2022 BASO # 0.0 103/ul Normal 0.0-0.1 [facility] Comment on above: Performed By: #### C BC ####[facility] Amfvlheyye455[address] [place], [place] [address]Dr. Soniya Chi Basophils/100 WBC (Bld) 0.2 % Normal 0.2-2.0 [facility] Comment on above: Performed By: #### C BC ####[facility] Tbcmcntxxs[address] [place] [address]Dr. Soniya Chi EO # 0.1 103/ul Normal 0.0-0.7 [facility] Comment on above: Performed By: #### C BC ####[facility] Cszqcaihld[address] [place] [address]Dr. Soniay Chi Eosinophils/100 WBC (Bld) 1.0 % Normal 0.9-7.0 [facility] Comment on above: Performed By: #### C BC ####[facility] Yngtacauml[address] [place] [address]Dr. Soniya Chi Erythrocyte distribution wid th (RBC) [Ratio] 15.1 % Critically high 11.0-15.0 The [facility] Comment on above: Performed By: #### C BC ####[facility] Szzdciwxgu12[address] [place], [place] [address]Dr. Soniya Chi Hematocrit (Bld) [Volume fraction] 31.1 % Critically low 36.0-48.0 [facility] Comment on above: Performed By: #### C BC ####[facility] Ejuyewmqxc7[address] [place], [place] [address]Dr. Soniya Chi Hemoglobin (Bld) [Mass/Vol] 10.2 g/dL Critically low 12.0 -16.0 The [facility] Comment on above: Performed By: #### C BC ####[facility] Qzezwwqthf23[address] [place], [place] [address]Dr. Soniya Chi IG # 0.01 10e3/ul Normal 0.00-0.03 The [facility] Comment on above: Performed By: #### C BC ####[facility] Eyyzqembno[address] [place], [place] [address]Dr. Soniya Chi IG % 0.2 % Normal 0.0-0.5 [facility] Comment on above: Performed By: #### C BC ####[facility] Xwkqycnztt[address] [place], [place] [address]Dr. Soniya Chi LYMPH # 1.1 103/ul Critically low 1.2-3.8 [facility] Comment on above: Performed By: #### C BC ####[facility] Qfmbkngwlk[address] [place], [place] [address]Dr. Gypsyjuan Chi Lymphocytes/100 WBC (Bld) 22.5 % Normal 20.5-60.0 The [facility] Comment on above: Performed By: #### C BC ####[facility] Yqlthhysnt[address] [place], [place] [address]Dr. Gypsyjuan Chi MANUAL DIFF REQ NO Normal [facility] Comment on above: Performed By: #### C BC ####[facility] Rusvgwfgij[address] [place] [address]Dr. Soniya Alon MCH (RBC) [Entitic mass] 30.5 pg Normal 26.7-34.0 [facility] Comment on above: Performed By: #### C BC ####[facility] Fwobaziefp[address] [place] [address]Dr. Soniya Alon MCHC (RBC) [Mass/Vol] 32.8 g/dL Normal 29.9-35.2 [facility] Comment on above: Performed By: #### C BC ####[facility] H[address]ipzeclw[address] [place] [address]Dr. Soniya Chi MCV (RBC) [Entitic vol] 93.1 fL Normal 81.0-99.0 [facility] Comment on above: Performed By: #### C BC ####[facility] Arphiyqlrv[address] [place], [place] [address]Dr. Soniya Chi MONO # 0.3 103/ul Normal 0.3-0.8 [facility] Comment on above: Performed By: #### C BC ####[facility] Qbmirjxjbz[address] [place], [place] [address]Dr. Soniya Chi Monocytes/100 WBC (Bld) 6.6 % Normal 1.7-12.0 [facility] Comment on above: Performed By: #### C BC ####[facility] Nohsfmijuh[address] [place], [place] [address]Dr. Soniya Chi NEUT # 3.5 103/ul Normal 1.4-6.5 [facility] Comment on above: Performed By: #### C BC ####[facility] Axfylinlle[address] [place], [place] [address]DrKarolina Chi Neutrophils/100 WBC (Bld) 69.5 % Normal 43.0-75.0 [facility] Comment on above: Performed By: #### C BC ####[facility] Bjtflsctin[address] [place], [place] [address]Dr. Soniya Chi Platelet mean volume (Bld) [ Entitic vol] 10.3 fL Normal 9.5-13.5 [facility] Comment on above: Performed By: #### C BC ####[facility] [address] [place], [place] [address]Ie. Soniya Chi PLT 116 103/ul Critically low 150-450 [facility] Comment on above: Performed By: #### C BC ####[facility] [address] [place], [place] [address]Bw. Soniya Chi RBC 3.34 106/ul Critically low 4.20-5.40 [facility] Comment on above: Performed By: #### C BC ####[facility] Vxwkijacbx036[address] [place], [place] [address]Ro. Soniya Chi WBC 5.0 103/ul Normal 4.0-11.0 [facility] Comment on above: Performed By: #### C BC ####[facility] Mbyfurimcg3717 [place], [place] [address]Cp. Soniya Chi Family Medicine Office/Clini c Noteon 08-13-2022 Family Medicine Office/Clinic Note Chief Complaint weakness, some hallucinations, trouble walking at time, the memory issues tried to make referral to neurologist and they said PCP needs to refer HPI Staff Patient is here for chronic follow up Patient would like a referral to a Neurologist for memory loss and hallucinations Mamm: 2021 UTD colon: 2-3 years ago AMW: Flu/Covid:UTD History of Present Illness Lot of changes saw strpour 1mg odf risperdal 2 qhs daily, ziprasadone bid At times forgetting, voice is dragged ut and real slow, drooling a lot Needs referral to neurologist. Review of Systems Constitutional: no fever, no chills, no sweats, wea +weakness, fatigue Skin: no Jaundice, no rash, no lesions, nopetechiae ENMT: no ear pain, no sore throat, no congestion, no hoarseness Respiratory: no shortness of breath, no cough, no orthopnea, no wheezing Cardiovascular: no chest pain, no palpitations, no edema Gastrointestinal: no nausea, no vomiting, no diarrhea, no GI bleeding Genitourinary: no dysuria, no hematuria, no discharge, no pain Neurologic: loss of bslance, memory loss that comes and goes, very hard for her to get up and wealk, not able to get out of the house, weakness Psychiatric: memory loss, hearing voices Additional ROS info: Except as noted in the above Review of Systems and in the History of Present Illness all other systems have been reviewed and are negative or noncontributory. Physical Exam Vitals & Measurements HR: 46(Peripheral) RR: 16 BP: 100/72 SpO2: 93% HT: 61 in HT: 154.94 cm WT: 75.29 kg WT: 165.638 lb BMI: 31.36 General. abnormal presentation, very hard to stand, balance is poor and poos eye contact Skin: warm, dry Head: no trauma, normocephalic Neck: Trachea midline, no adenopathy, no tenderness Eye: normal conjunctiva, sclera clear ENMT: TM's clear, oral mucosa moist, no pharyngeal erythema or exudate Cardiovascular: regular rate and rhythm, normal peripheral perfusion Respiratory: Lungs CTA, respirations non labored Gastrointestinal: soft, non distended, no tenderness, no guarding. Extremities: no deformity, no trauma Neurological: oriented but trouble staying focused, follow commands but does follwo with the eyeys, weak preparation supervisor and leg strength seems not following command, poor balance staggering gait, very slow and slurred speech Psych. hearing voices, very stiff inappropriate Assessment/Plan 1. BMI 31.0-31.9,adult (Z68.31: Body mass index [BMI] 31.0-31.9, adult) Diet and exercise explained Ordered: Basic Metabolic Panel Body Mass Index (BMI) documented 3008F CBC w/ Auto Diff Current tobacco non-user 1036F Falls plan of care documented 0518F Hepatic Function Panel Influenza immunization administered or previously received 4274F Most recent diastolic blood pressure <80 mm Hg 3078F Systolic BP <130 mm Hg (Most Recent) 3074F 2. Major depression with psychotic features (F32.3: Major depressive disorder, single episode, severe with psychotic features) Patient still have some auditory hallucinations, but seems to lack insight into her medical problems. Currently maybe reaction to medicines or something metabolic going on. Ordered: [facility] External Ambulatory Referral 3. Anxiety disorder (F41.9: Anxiety disorder, unspecified) Secondary to the psychosis and memory loss. 4. HTN (hypertension) (I10: Essential (primary) hypertension) Controlled continue bisoprol and low salt diet wioth exercise 5. Spasm of muscle (M62.838: Other muscle spasm) Possible cause of gait disordfer, medicine something neurological will refer to neurology. Ordered: [facility] External Ambulatory Referral Other fatigue (R53.83: Other fatigue) Secondary to all of the abover. Ordered: Basic Metabolic Panel [facility] External Ambulatory Referral Follow-up No qualifying data available Problem List/Past Medical History Ongoing Anxiety disorder HTN (hypertension) Hyperlipidemia, unspecified Loss of memory Major depression with psychotic features LISA (obstructive sleep apnea) Spasm of muscle Historical Depression Hypothyroidism IBS - Irritable bowel syndrome Paranoid schizophrenia Procedure/Surgical History Colonoscopy (01/2019), CEIOL - Cataract extraction and insertion of intraocular lens (04/28/2017), Tonsillectomy and adenoidectomy. Medications amitriptyline 10 mg Tab bisoprolol-hydrochlorothiazide 2.5 mg-6.25 mg Tab, 1 tab(s), Oral, Daily bisoprolol-hydrochlorothiazide 2.5 mg-6.25 mg Tab, Not taking: duplicate ergocalciferol 50,000 intl units Cap risperidone 1 mg Tab, 1 mg= 1 tab(s), Oral, BID risperidone 2 mg Tab, 2 mg= 1 tab(s), Oral, BID, Not taking ziprasidone 20 mg Cap, 20 mg= 1 cap(s), Oral, BID Allergies Keflex (rash) penicillins (rash) sulfamethoxazole (rash) Social History Tobacco Never (less than 100 in lifetime) Tobacco Use:. Never Smokeless Tobacco Use:., 08/13/2022 Family History Dementia: Brother and Brother. Immunizations Vaccin (more content not included)... Normal [facility] Comment on above: Result Comment: Elec tronically Signed By: FANNY ROEPR, MELVA Laboy\.br\Date and Time Signed: 08/13/22 15:10 EDT LIVER PROFILEon 08-13-2022 Albumin [Mass/Vol] 3.6 g/dL Normal 3.4-5.0 [facility] Comment on above: Performed By: #### L [facility] ####[facility] [address] [place] [address]DrKarolina Chi Albumin/Globulin [Mass ratio] 1.0 {ratio} Normal [facility] Comment on above: Performed By: #### Yue HA BMP ####[facility] Itiqyauhed[address] [place], [place] [address]Dr. Soniya Alon ALP [Catalytic activity/Vol] 111 U/L Normal 46-116 [facility] Comment on above: Performed By: #### Yue HA BMP ####[facility] Ccyxaejdbk[address] [place], [place] [address]Dr. Soniya Alon ALT [Catalytic activity/Vol] 46 U/L Normal 14-59 [facility] Comment on above: Performed By: #### Yue HA BMP ####[facility] Gblsuxgukk[address] [place], [place] [address]Dr. Gypsyjuan Chi AST [Catalytic activity/Vol] 17 U/L Normal 15-37 [facility] Comment on above: Performed By: #### Yue HA BMP ####[facility] Qkfmehbrtp[address] [place], [place] [address]Dr. Gypsyjuan Chi BILI, CONJUGATED 0.1 mg/dL Normal 0.0-0.2 [facility] Comment on above: Performed By: #### Yue HA BMP ####[facility] P[address]bjxoizm[address] [place], [place] [address]Dr. Gypsyjuan Chi Bilirubin [Mass/Vol] 0.7 mg/dL Normal 0.2-1.0 [facility] Comment on above: Performed By: #### Yue HA BMP ####[facility] Pgwfcrgixs[address] [place], [place] [address]Dr. Soniya Chi Globulin (S) [Mass/Vol] 3.5 g/dL Normal T [facility] Comment on above: Performed By: #### Yue HA BMP ####[facility] Gqomznbcia[address] [place], [place] [address]Dr. Soniya Chi Protein [Mass/Vol] 7.1 g/dL Normal 6.4-8.2 [facility] Comment on above: Performed By: #### Yue HA BMP ####[facility] Tqnhirgq[address] [place] [address]Dr. Soniya Chi PROF CHEM 8 (BAS METB)on Anion gap [Moles/Vol] 6.8 mmol/L Normal [facility] Comment on above: Performed By: #### L IVER, BMP ####[facility] Gkvbyqnngx189[address] [place], [place] [address]Dr. Soniya Chi Calcium [Mass/Vol] 10.1 mg/dL Normal 8.5-10.1 [facility] Comment on above: Performed By: #### L IVER, BMP ####[facility] Kaqqfvwshy[address] [place], [place] [address]Dr. Soniya Chi Chloride [Moles/Vol] 105 mmol/L Normal 98-107 [facility] Comment on above: Performed By: #### L IVER, BMP ####[facility] Fwaklsohao[address] [place], [place] [address]Dr. Soniya Chi CO2 [Moles/Vol] 32.4 mmol/L Critically high 21.0-32.0 [facility] Comment on above: Performed By: #### L IVER, BMP ####[facility] Oxumccxwhu208[address] [place], [place] [address]Dr. Soniya Chi Creatinine [Mass/Vol] 1.25 mg/dL Critically high 0.55-1.02 [facility] Comment on above: Performed By: #### L IVER, BMP ####[facility] Bknfptwhlg[address] [place], [place] [address]Dr. Soniya Chi EGFR-AF SRI LANKAN 52 mL/min/1.73m2 Critically low >=60 [facility] Comment on above: Performed By: #### L IVER, BMP ####[facility] [address]ixbsidc[address] [place], [place] [address]Dr. Soniya Chi EGFR-NON AF SRI LANKAN 43 mL/min/1.73m2 Critically low >=60 [facility] Comment on above: Performed By: #### L IVER, BMP ####[facility] Dwcpkoxqzu04[address] [place], [place] [address]Dr. Soniya Chi Glucose [Mass/Vol] 86 mg/dL Normal 74-[address] [facility] Comment on above: Performed By: #### Yue HA BMP ####[facility] [address]kvenqjcyw[address] [place] [address]Dr. Soniya Chi Potassium [Moles/Vol] 3.9 mmol/L Normal 3.5-5.1 [facility] Comment on above: Performed By: #### Yue HA BMP ####[facility] Zbiamefzha[address] [place] [address]Dr. Soniya Chi Sodium [Moles/Vol] 142 mmol/L Normal 136-145 [facility] Comment on above: Performed By: #### Yue HA BMP ####[facility] Wy[address]uzckjwb[address] [place] [address]Dr. Soniya Chi Urea nitrogen [Mass/Vol] 23.0 mg/dL Critically high 7.0-18 .0 [facility] Comment on above: Performed By: #### Yue HA BMP ####[facility] Qdkvbrorwi25[address] [place] [address]Dr. Soniya Chi Urea nitrogen/Creatinine [Mass ratio] 18.4 mg/mg Normal [facility] Comment on above: Performed By: #### Yue AH BMP ####[facility] Jak[address] [place] [address]Dr. Soniya Chi Outpatient Clinic Recordon 0 08-07-2022 Outpatient Clinic Record [id number]:127 Normal [facility] Basic Metabolic Panelon 06-02 Anion gap [Moles/Vol] 12.2 mmol/L Normal 6.0-15.0 [facility] Comment on above: Performed By: #### C OVID-19 TERE SOFIANEG #### [facility] [address] [place] [address] [facility] Calcium [Mass/Vol] 9.3 mg/dL Normal 8.2-10.2 [facility] Comment on above: Performed By: #### C OVID-19 TERE SOFIANEG #### [facility] [address] Chloride [Moles/Vol] 100 mmol/L Normal 95-[address] [facility] Comment on above: Performed By: #### C OVID-19 TERE SOFIANEG #### [facility] [address] CO2 [Moles/Vol] 26.6 mmol/L Normal 22.0-30.0 [facility] Comment on above: Performed By: #### C OVID-19 TERE SOFIANEG #### [facility] [address] Creatinine [Mass/Vol] 1.30 mg/dL High 0.44-1.03 [facility] Comment on above: Performed By: #### C OVID-19 TERE SOFIANEG #### [address] Creatinine Clr Calc Pharmacy 39.93 [facility] Comment on above: Result Comment: PERF ORMED BY: [place] [address] PATHOLOGIST RING FACER TRACY DICKERSON M.D. Performed By: #### C OVID-19 TERE SOFIANEG #### [address] Estimated GFR ( Emilie 49 [facility] Comment on above: Result Comment: GFR estimated reference range: According to KDOQI guidelines, <60 ml/min/1.73m2 is sufficient to diagnose a patient with chronic kidney disease. Performed By: #### C OVID-19 TERE, SOFIANEG #### [facility] [address] [place] [address] Estimated GFR (Non- Am 41 [facility] Comment on above: Performed By: #### C OVID-19 TERE SOFIANEG #### [facility] [address] [place] [address] Glucose [Mass/Vol] 101 mg/dL High 70-100 [facility] Comment on above: Result Comment: [place] Glucose Reference Range is dependent on time and content of last meal. Glucose of more than 200 mg/dL in a nonstressed, ambulatory subject supports the diagnosis of Diabetes Mellitus. ADA recommended reference range Performed By: #### C OVID-19 TERE SOFIANEG #### [facility] [address] [place] [address] [place] Potassium [Moles/Vol] 3.8 mmol/L Normal 3.5-5.1 [facility] Comment on above: Performed By: #### C OVID-19 TERE SOFIANEG #### [facility] [address] [place] [id number] [place] Sodium [Moles/Vol] 135 mmol/L Low 136-146 [facility] Comment on above: Performed By: #### C OVID-19 TERE SOFIANEG #### [facility] [address] [place] [id number] [place] Urea nitrogen [Mass/Vol] 26 mg/dL High 9-23 [facility] Comment on above: Performed By: #### C OVID-19 TERE SOFIANEG #### [facility] [address] [place] [address] [place] Creatinine and Glomerular fi ltration rate.predicted panel (S/P/Bld)Ordered By: Marlene Guerra on 06-17-2022 Creatinine [Mass/Vol] 1.30 mg/dL 0.44-1.03 [facility] Estimated glomerular filtrat ion rate (GFR) non- AmericanOrdered By: Marlene Guerra on 06-17-2022 GFR/1.73 sq M.predicted luis g non-blacks MDRD (S/P/Bld) [Vol rate/Area] 41 mL/Min [facility] No Panel InformationOrdered By: Marlene Guerra on 06-17-2022 Estimated GFR () 49 mL/Min [facility] Comment on above: GFR estimated refere nce range: According to KDOQI guidelines, <60 ml/min/1.73m2 is sufficient to diagnose a patient with chronic kidney disease. Pharmacy Creatinine Clearance (Chem 39.93 [facility] Serum or plasma anion gap de terminationOrdered By: Marlene Guerra on 06-17-2022 Anion gap [Moles/Vol] 12.2 mmol/L 6.0-15.0 [facility] Serum or plasma calcium negin urement (mass/volume)Ordered By: Marlene Guerra on 06-17-2022 Calcium [Mass/Vol] 9.3 mg/dL 8.2-10.2 [facility] Serum or plasma chloride russel surement (moles/volume)Ordered By: Marlene Guerra on 06-17-2022 Chloride [Moles/Vol] 100 mmol/L 95-[address] [facility] Serum or plasma glucose negin urement (mass/volume)Ordered By: Marlene Guerra on 06-17-2022 Glucose [Mass/Vol] 101 mg/dL 70-100 [facility] Comment on above: ADA recommended refe rence rangeRandom Glucose Reference Range is dependent on time and content of last meal. Glucose of more than 200 mg/dL in a nonstressed, ambulatory subject supports the diagnosis of Diabetes Mellitus. Serum or plasma potassium me asurement (moles/volume)Ordered By: Marlene Guerra on 06-17-2022 Potassium [Moles/Vol] 3.8 mmol/L 3.5-5.1 [facility] Serum or plasma sodium measu rement (moles/volume)Ordered By: Marlene Guerra on 06-17-2022 Sodium [Moles/Vol] 135 mmol/L 136-146 [facility] Serum or plasma total carbon dioxide measurement (moles/volume)Ordered By: Marlene Guerra on 06-17-2022 CO2 [Moles/Vol] 26.6 mmol/L 22.0-30.0 [facility] Serum or plasma urea nitroge n measurement (mass/volume)Ordered By: Marlene Guerra on 06-17-2022 Urea nitrogen [Mass/Vol] 26 mg/dL 9-23 [facility] Basic Metabolic Panelon 06-02 Anion gap [Moles/Vol] 11.7 mmol/L Normal 6.0-15.0 [facility] Comment on above: Performed By: #### C BC #### [address] Calcium [Mass/Vol] 9.8 mg/dL Normal 8.2-10.2 [facility] Comment on above: Performed By: #### C BC #### [facility] [address] Chloride [Moles/Vol] 103 mmol/L Normal 95-[address] [facility] Comment on above: Performed By: #### C BC #### [facility] [address] CO2 [Moles/Vol] 26.5 mmol/L Normal 22.0-30.0 [facility] Comment on above: Performed By: #### C BC #### [facility] [address] Creatinine [Mass/Vol] 1.44 mg/dL High 0.44-1.03 [facility] Comment on above: Performed By: #### C BC #### [facility] [address] Creatinine Clr Calc Pharmacy 36.05 [facility] Comment on above: Result Comment: PERF ORMED BY: [place] [address] PATHOLOGIST RING FACER TRACY DICKERSON M.D. Performed By: #### C BC #### [address] Estimated GFR ( Emilie 44 [facility] Comment on above: Result Comment: GFR estimated reference range: According to KDOQI guidelines, <60 ml/min/1.73m2 is sufficient to diagnose a patient with chronic kidney disease. Performed By: #### C BC #### [address] Estimated GFR (Non- Am 36 [facility] Comment on above: Performed By: #### C BC #### [address] Glucose [Mass/Vol] 94 mg/dL Normal 70-100 [facility] Comment on above: Result Comment: [place] Glucose Reference Range is dependent on time and content of last meal. Glucose of more than 200 mg/dL in a nonstressed, ambulatory subject supports the diagnosis of Diabetes Mellitus. ADA recommended reference range Performed By: #### C BC #### [facility] [address] Potassium [Moles/Vol] 4.2 mmol/L Normal 3.5-5.1 [facility] Comment on above: Performed By: #### C BC #### [facility] [address] Sodium [Moles/Vol] 137 mmol/L Normal 136-146 [facility] Comment on above: Performed By: #### C BC #### [facility] [address] Urea nitrogen [Mass/Vol] 33 mg/dL High 9-23 [facility] Comment on above: Performed By: #### C BC #### [facility] [address] [place] [address] [place] Basophils Auto (Bld) [#/Vol] Ordered By: Marlene Guerra on 06-15-2022 Basophils (Bld) [#/Vol] 0.0 10*3/uL 0.0-0.2 [facility] Basophils/100 WBC Auto (Bld) Ordered By: Marlene Guerra on 06-15-2022 Basophils/100 WBC (Bld) 0.5 % . [facility] Complete Blood Count Auto Di ffon 06-15-2022 Basophils (Bld) [#/Vol] 0.0 10*3/uL Normal 0.0-0.2 [facility] Comment on above: Result Comment: PERF ORMED BY: [place] [address] PATHOLOGIST RING FACER TRACY DICKERSON M.D. Performed By: #### C BC #### [place] [address] [place] Basophils/100 WBC (Bld) 0.5 % Normal . [facility] Comment on above: Performed By: #### C BC #### [facility] [address] [place] [address] [place] Eosinophils (Bld) [#/Vol] 0.0 10*3/uL Normal 0.0-0.45 [facility] Comment on above: Performed By: #### C BC #### [address] Eosinophils/100 WBC (Bld) 0.3 % Normal . [facility] Comment on above: Performed By: #### C BC #### [address] Erythrocyte distribution wid th (RBC) [Ratio] 15.6 % High 11.9-15.3 [facility] Comment on above: Performed By: #### C BC #### [address] Hematocrit (Bld) [Volume fraction] 34.4 % Normal 34.0-46.4 [facility] Comment on above: Performed By: #### C BC #### [address] Hemoglobin (Bld) [Mass/Vol] 11.2 g/dL Low 11.8-15. 4 [facility] Comment on above: Performed By: #### C BC #### [address] Lymphocytes (Bld) [#/Vol] 0.9 10*3/uL Low 1.00-4.8 [facility] Comment on above: Performed By: #### C BC #### [address] Lymphocytes/100 WBC (Bld) 10.9 % Normal . [facility] Comment on above: Performed By: #### C BC #### [address] MCH (RBC) [Entitic mass] 29.6 pg Normal 24.7-34.3 [facility] Comment on above: Performed By: #### C BC #### [address] MCV (RBC) [Entitic vol] 90.5 fL Normal 80-100 [facility] Comment on above: Performed By: #### C BC #### [facility] [address] [place] [id number] [facility] Mean Corpuscular HGB Conc 32.7 g/dL Normal 32.0-35.0 [facility] Comment on above: Performed By: #### C BC #### [facility] [address] Monocytes (Bld) [#/Vol] 0.8 10*3/uL Normal 0.0-0.8 [facility] Comment on above: Performed By: #### C BC #### [facility] [address] Monocytes/100 WBC (Bld) 9.8 % Normal . [facility] Comment on above: Performed By: #### C BC #### [facility] [address] Neutrophils (Bld) [#/Vol] 6.4 10*3/uL Normal 1.8-7.7 [facility] Comment on above: Performed By: #### C BC #### [facility] [address] Neutrophils/100 WBC (Bld) 78.5 % Normal . [facility] Comment on above: Performed By: #### C BC #### [facility] [address] NRBC% 0.1 /100{WBC} Normal 0-0.5 [facility] Comment on above: Performed By: #### C BC #### [facility] [address] [place] [address] [place] Platelet mean volume (Bld) [Entitic vol] 7.9 fL Normal 6.3-10.7 [facility] Comment on above: Performed By: #### C BC #### [facility] [address] [place] [id number] [place] Platelets (Bld) [#/Vol] 209 10*3/uL Normal 150-450 [facility] Comment on above: Performed By: #### C BC #### [address] [place] [address] [facility] RBC (Bld) [#/Vol] 3.80 10*6/uL Normal 3.60-5.00 [facility] Comment on above: Performed By: #### C BC #### [facility] [address] WBC (Bld) [#/Vol] 8.2 10*3/uL Normal 3.8-11.6 [facility] Comment on above: Performed By: #### C BC #### [address] Eosinophils Auto (Bld) [#/Vo l]Ordered By: Marlene Guerra on 06-15-2022 Eosinophils (Bld) [#/Vol] 0.0 10*3/uL 0.0-0.45 [facility] Eosinophils/100 WBC Auto (Bl d)Ordered By: Marlene Guerra on 06-15-2022 Eosinophils/100 WBC (Bld) 0.3 % . [facility] Erythrocyte distribution wid th Auto (RBC) [Ratio]Ordered By: Marlene Guerra on 06-15-2022 Erythrocyte distribution wid th (RBC) [Ratio] 15.6 % 11.9-15.3 [facility] Hematocrit Auto (Bld) [Volum e fraction]Ordered By: Marlene Guerra on 06-15-2022 Hematocrit (Bld) [Volume fraction] 34.4 % 3 4.0-46.4 [facility] Hemoglobin [Mass/volume] in BloodOrdered By: Marlene Guerra on 06-15-2022 Hemoglobin (Bld) [Mass/Vol] 11.2 g/dL 11.8-15. 4 [facility] Influenza A and B Antigenon 06-15-2022 Influenza A and B Antigen Influenza A and B Reference Range: Negative Negative Results: Culture or molecular confirmation of negative samples is recommended. Infection due to Influenza cannot be ruled-out because the antigen present in the sample may be below the detection limit of the test. Flu A Result Negative for Influenza A Antigen Flu B Result Negative for Influenza B Antigen PERFORMED BY: [place] [address] PATHOLOGIST RING FACER TRACY DICKERSON M.D. Normal [facility] Comment on above: Performed By: #### C OVID-19 JOHN CARRANZAEG #### [facility] [address] [place] [id number] [facility] Influenza virus A and B anti gen detection by immunoassayOrdered By: Kassandra Vasquez on 06-15-2022 FLUAV+FLUBV Ag IA Ql (Unsp spec) [facility] Leukocytes [#/volume] correc scott for nucleated erythrocytes in Blood by Automated counOrdered By: Marlene Guerra on 06-15-2022 WBC corrected for nucl RBC A uto (Bld) [#/Vol] 8.2 10*3/uL 3.8-11.6 [facility] Lymphocytes Auto (Bld) [#/Vo l]Ordered By: Marlene Guerra on 06-15-2022 Lymphocytes (Bld) [#/Vol] 0.9 10*3/uL 1.00-4.8 [facility] Lymphocytes/100 WBC Auto (Bl d)Ordered By: Marlene Guerra on 06-15-2022 Lymphocytes/100 WBC (Bld) 10.9 % . [facility] MCH Auto (RBC) [Entitic mass ]Ordered By: Marlene Guerra on 06-15-2022 MCH (RBC) [Entitic mass] 29.6 pg 24.7-34.3 [facility] MCHC Auto (RBC) [Mass/Vol]Or dered By: Marlene Guerra on 06-15-2022 MCHC (RBC) [Mass/Vol] 32.7 g/dL 32.0-35.0 [facility] MCV Auto (RBC) [Entitic vol] Ordered By: Marlene Guerra on 06-15-2022 MCV (RBC) [Entitic vol] 90.5 fL 80-100 [facility] Monocytes Auto (Bld) [#/Vol] Ordered By: Marlene Guerra on 06-15-2022 Monocytes (Bld) [#/Vol] 0.8 10*3/uL 0.0-0.8 [facility] Monocytes/100 WBC Auto (Bld) Ordered By: Marlene Guerra on 06-15-2022 Monocytes/100 WBC (Bld) 9.8 % . [facility] Neutrophils Auto (Bld) [#/Vo l]Ordered By: Marlene Guerra on 06-15-2022 Neutrophils (Bld) [#/Vol] 6.4 10*3/uL 1.8-7.7 [facility] Neutrophils/100 WBC Auto (Bl d)Ordered By: Marlene Guerra on 06-15-2022 Neutrophils/100 WBC (Bld) 78.5 % . [facility] Nucleated erythrocytes [Pres ence] in Blood by Automated countOrdered By: Marlene Guerra on 06-15-2022 Nucleated RBC Auto Ql (Bld) 0.1 /100{WBC} 0-0.5 [facility] Platelet mean volume Auto (B ld) [Entitic vol]Ordered By: Marlene Guerra on 06-15-2022 Platelet mean volume (Bld) [Entitic vol] 7.9 fL 6.3-10.7 [facility] Platelets Auto (Bld) [#/Vol] Ordered By: Marlene Guerra on 06-15-2022 Platelets (Bld) [#/Vol] 209 10*3/uL 150-450 [facility] RBC Auto (Bld) [#/Vol]Ordere d By: Marlene Guerra on 06-15-2022 RBC (Bld) [#/Vol] 3.80 10*6/uL 3.60-5.00 [facility] Urine Cultureon 06-15-2022 Bacteria identified Cx Nom (U) 25,000 colonies/ml mixed bacterial skin contaminants 2 Days PERFORMED BY: [place] [address] PATHOLOGIST RING FACER TRACY DICKERSON M.D. Normal [facility] Comment on above: Performed By: #### C BC #### [address] Urine culture routineOrdered By: Marlene Guerra on 06-15-2022 Bacteria identified Cx Nom (U) 2 Days [facility] Vaginitis Plus (VG+)on 06-15 Atop[facility]ium Vaginae Low - 0 Normal . [facility] Comment on above: Order Comment: SOURC E OF SPECIMEN: Vagina per Dr. Cordoba. Performed By: #### C BC #### [address] BVAB2 Low - 0 Normal . [facility] Comment on above: Order Comment: SOURC E OF SPECIMEN: Vagina per Dr. Cordoba. Performed By: #### C BC #### [address] Emily Albicans, DORIAN Negative Normal Negative [facility] Comment on above: Order Comment: SOURC E OF SPECIMEN: Vagina per Dr. Cordoba. Result Comment: This test was developed and its performance characteristics determined by [facility]. It has not been cleared or approved by the Food and Drug Administration. Performed By: #### C BC #### [address] Emily Glabrata, DORIAN Negative Normal Negative [facility] Comment on above: Order Comment: SOURC E OF SPECIMEN: Vagina per Dr. Cordoba. Result Comment: This test was developed and its performance characteristics determined by [facility]. It has not been cleared or approved by the Food and Drug Administration. PERFORMED BY: [place] [address] PATHOLOGIST RING FACER TRACY DICKERSON M.D. Performed By: #### C BC #### [address] Chlamydia Trachomotis, DORIAN Negative Normal Negative [facility] Comment on above: Order Comment: SOURC E OF SPECIMEN: Vagina per Dr. Cordoba. Performed By: #### C BC #### [place] [address] [place] Megasphaera Low - 0 Normal . [facility] Comment on above: Order Comment: SOURC E OF SPECIMEN: Vagina per Dr. Cordoba. Result Comment: Calc ulate total score by adding the 3 individual bacterial vaginosis (BV) marker scores together. Total score is interpreted as follows: Total score 0-1: Indicates the absence of BV. Total score 2: Indeterminate for BV. Additional clinical data should be evaluated to establish a diagnosis. Total score 3-6: Indicates the presence of BV. This test was developed and its performance characteristics determined by [facility]. It has not been cleared or approved by the Food and Drug Administration. Performed By: #### C BC #### [address] Neisseria Gonorrhoeae, DORIAN Negative Normal Negative [facility] Comment on above: Order Comment: SOURC E OF SPECIMEN: Vagina per Dr. Cordoba. Result Comment: Perf ormed at: =G - [facility] [address] [id number] Bus Cleaner: Ladan Lanza MD, Phone: [phone] Performed By: #### C BC #### [address] Tric Vag DORIAN Negative Normal Negative [facility] Comment on above: Order Comment: SOURC E OF SPECIMEN: Vagina per Dr. Cordoba. Performed By: #### C BC #### [address] WBC Auto (Bld) [#/Vol]Ordere d By: Marlene Guerra on 06-15-2022 WBC (Bld) [#/Vol] 8.2 10*3/uL 3.8-11.6 [facility] Albumin [Mass/volume] in Ser um or PlasmaOrdered By: Marty Mclean on 06-14-2022 Albumin [Mass/Vol] 4.0 g/dL 3.2-5.5 [facility] Ammoniaon 06-14-2022 Ammonia (P) [Moles/Vol] 10 umol/L Low 11-35 [facility] Comment on above: Result Comment: PERF ORMED BY: [place] [address] PATHOLOGIST RING FACER TRACY DICKERSON M.D. Performed By: #### C BC #### [address] Automated erythrocytes count in urine sediment (number/area)Ordered By: Marty Mclean on 06-14-2022 RBC Auto (Urine sed) [#/Area] 0-1 [HPF] 0-4 [facility] Automated leukocytes count i n urine sediment (number/area)Ordered By: Marty Mclean on 06-14-2022 WBC Auto (Urine sed) [#/Area] None seen [HPF] 0 -4 [facility] Automated urine color determ inationOrdered By: Marty Mclean on 06-14-2022 Color (U) Yellow Normal Yellow [facility] Comment on above: Order Comment: Name Collection Type:: Straight Catheter Performed By: #### C OVID-19 TERE, SOFIANEG #### [facility] [address] Bilirubin Test strip Ql (U)O rdered By: Marty Mclean on 06-14-2022 Bilirubin Ql (U) Negative Negative [facility] COVID-19 Antigenon 3 COVID-19 Antigen Healthcare Worker?: N Reference Range: Negative Negative results, from patients with symptom onset beyond five days, should be treated as presumptive and confirmation with a molecular assay, if necessary, for patient management, may be performed. Negative results do not rule out COVID-19 and should not be used as the sole basis for treatment or patient management decisions, including infection control decisions. Negative results should be considered in the context of a patient's recent exposures, history and the presence of clinical signs and symptoms consistent with COVID-19. The [place] SARS Antigen [facility] does not differentiate between SARS-CoV and SARS-CoV-2. This test was developed and its performance characteristic determined by [facility] and validated at [facility]. This test has not been FDA cleared or approved. This test has been authorized by FDA under an Emergency Use Authorization (EUA). This test has been validated in accordance with the FDA's Guidance Document (Policy for Diagnostics Testing in Laboratories Certified to Perform High Complexity Testing under CLIA prior to Emergency Use Authorization for Coronavirus Disease-2019 during the Public Health Emergency) issued on September 02, 2019. This test is only authorized for the duration of time the declaration that circumstances exist justifying the authorization of the emergency use of in vitro diagnostic tests for detection of SARS-CoV-2 virus and/or diagnosis of COVID-19 infection under section 564(b)(1) of the Act, 21 U.S.C. 360bbb-3(b)(1), unless the authorization is terminated or revoked sooner. SARS-CoV+SARS-CoV-2 (COVID-19) Ag [Presence] in Respiratory specimen by Rapid immunoassay Negative for SARS Antigen by [facility] PERFORMED BY: [place] [address] PATHOLOGIST RING FACER TRACY DICKERSON M.D. Normal [facility] Comment on above: Performed By: #### C OVID-19 TERE, SOFIANEG #### [address] COVID-19 SOFIAOrdered By: Ab aziza Mclean on 06-14-2022 SARS-CoV+SARS-CoV-2 (COVID-1 9) Ag IA.rapid Ql (Resp) Negative Negative [facility] Comment on above: This is a duplicate [place] SARS Antigen (CHU) result to be used for statistical tracking purpose only. Complete Blood Count Auto Di ffon 06-14-2022 Basophils (Bld) [#/Vol] 0.0 10*3/uL Normal 0.0-0.2 [facility] Comment on above: Result Comment: PERF ORMED BY: [place] [address] PATHOLOGIST RING FACER TRACY DICKERSON M.D. Performed By: #### C BC #### [address] Basophils/100 WBC (Bld) 0.2 % Normal . [facility] Comment on above: Performed By: #### C BC #### [address] Eosinophils (Bld) [#/Vol] 0.0 10*3/uL Normal 0.0-0.45 [facility] Comment on above: Performed By: #### C BC #### [address] Eosinophils/100 WBC (Bld) 0.1 % Normal . [facility] Comment on above: Performed By: #### C BC #### [address] Erythrocyte distribution wid th (RBC) [Ratio] 15.8 % High 11.9-15.3 [facility] Comment on above: Performed By: #### C BC #### [address] Hematocrit (Bld) [Volume fraction] 36.6 % Normal 34.0-46.4 [facility] Comment on above: Performed By: #### C BC #### [address] Hemoglobin (Bld) [Mass/Vol] 11.8 g/dL Normal 11.8-15. 4 [facility] Comment on above: Performed By: #### C BC #### [address] Lymphocytes (Bld) [#/Vol] 0.7 10*3/uL Low 1.00-4.8 [facility] Comment on above: Performed By: #### C BC #### [address] Lymphocytes/100 WBC (Bld) 5.8 % Normal . [facility] Comment on above: Performed By: #### C BC #### [address] MCH (RBC) [Entitic mass] 29.4 pg Normal 24.7-34.3 [facility] Comment on above: Performed By: #### C BC #### [address] MCV (RBC) [Entitic vol] 90.8 fL Normal 80-100 [facility] Comment on above: Performed By: #### C BC #### [address] Mean Corpuscular HGB Conc 32.3 g/dL Normal 32.0-35.0 [facility] Comment on above: Performed By: #### C BC #### [facility] [address] [place] [address] [place] Monocytes (Bld) [#/Vol] 0.8 10*3/uL Normal 0.0-0.8 [facility] Comment on above: Performed By: #### C BC #### [facility] [address] [place] [address] [place] Monocytes/100 WBC (Bld) 6.2 % Normal . [facility] Comment on above: Performed By: #### C BC #### [facility] [address] Neutrophils (Bld) [#/Vol] 10.8 10*3/uL High 1.8-7.7 [facility] Comment on above: Performed By: #### C BC #### [facility] [address] Neutrophils/100 WBC (Bld) 87.7 % Normal . [facility] Comment on above: Performed By: #### C BC #### [facility] [address] NRBC% 0.0 /100{WBC} Normal 0-0.5 [facility] Comment on above: Performed By: #### C BC #### [facility] [address] Platelet mean volume (Bld) [Entitic vol] 7.9 fL Normal 6.3-10.7 [facility] Comment on above: Performed By: #### C BC #### [facility] [address] [place] [address] [place] Platelets (Bld) [#/Vol] 255 10*3/uL Normal 150-450 [facility] Comment on above: Performed By: #### C BC #### [facility] [address] [place] [address] [place] RBC (Bld) [#/Vol] 4.02 10*6/uL Normal 3.60-5.00 [facility] Comment on above: Performed By: #### C BC #### [address] WBC (Bld) [#/Vol] 12.3 10*3/uL High 3.8-11.6 [facility] Comment on above: Performed By: #### C BC #### [address] Comprehensive Metabolic Pane nydia 06-14-2022 Albumin [Mass/Vol] 4.0 g/dL Normal 3.2-5.5 [facility] Comment on above: Performed By: #### C MP #### [address] Albumin/Globulin [Mass ratio] 1.1 {ratio} Normal [facility] Comment on above: Performed By: #### C MP #### [address] ALP [Catalytic activity/Vol] 91 U/L Normal 32-92 [facility] Comment on above: Performed By: #### C MP #### [address] ALT [Catalytic activity/Vol] 25 U/L Normal 10-60 [facility] Comment on above: Performed By: #### C MP #### [address] Anion gap [Moles/Vol] 13.7 mmol/L Normal 6.0-15.0 [facility] Comment on above: Performed By: #### C MP #### [address] AST [Catalytic activity/Vol] 17 U/L Normal 10-42 [facility] Comment on above: Performed By: #### C MP #### [address] Bilirubin [Mass/Vol] 0.9 mg/dL Normal 0.3-1.[address] [facility] Comment on above: Performed By: #### C MP #### [address] Calcium [Mass/Vol] 10.1 mg/dL Normal 8.2-10.2 [facility] Comment on above: Performed By: #### C MP #### [facility] [address] Chloride [Moles/Vol] 104 mmol/L Normal 95-[address] [facility] Comment on above: Performed By: #### C MP #### [facility] [address] CO2 [Moles/Vol] 24.6 mmol/L Normal 22.0-30.0 [facility] Comment on above: Performed By: #### C MP #### [address] Creatinine [Mass/Vol] 1.44 mg/dL High 0.44-1.03 [facility] Comment on above: Performed By: #### C MP #### [address] Creatinine Clr Calc Pharmacy 36.05 [facility] Comment on above: Result Comment: PERF ORMED BY: [place] [address] PATHOLOGIST RING FACER TRACY DICKERSON M.D. Performed By: #### C MP #### [address] Estimated GFR ( Emilie 44 [facility] Comment on above: Result Comment: GFR estimated reference range: According to KDOQI guidelines, <60 ml/min/1.73m2 is sufficient to diagnose a patient with chronic kidney disease. Performed By: #### C MP #### [place] [address] [place] Estimated GFR (Non- Am 36 [facility] Comment on above: Performed By: #### C MP #### [address] Globulin (S) [Mass/Vol] 3.5 g/dL Normal [facility] Comment on above: Performed By: #### C MP #### [facility] [address] Glucose [Mass/Vol] 97 mg/dL Normal 70-100 [facility] Comment on above: Result Comment: [facility] Glucose Reference Range is dependent on time and content of last meal. Glucose of more than 200 mg/dL in a nonstressed, ambulatory subject supports the diagnosis of Diabetes Mellitus. ADA recommended reference range Performed By: #### C MP #### [address] Potassium [Moles/Vol] 4.3 mmol/L Normal 3.5-5.1 [facility] Comment on above: Performed By: #### C MP #### [address] Protein [Mass/Vol] 7.5 g/dL Normal 6.1-7.9 [facility] Comment on above: Performed By: #### C MP #### [address] Sodium [Moles/Vol] 138 mmol/L Normal 136-146 [facility] Comment on above: Performed By: #### C MP #### [place] [address] [place] Urea nitrogen [Mass/Vol] 36 mg/dL High 9-23 [facility] Comment on above: Performed By: #### C MP #### [place] [address] [place] Dipstick and Microscopicon 0 06-14-2022 Bacteria,Urine None Seen Normal None Seen [facility] Comment on above: Order Comment: Name Collection Type:: Straight Catheter Performed By: #### C OVID-19 TERE, SOFIANEG #### [place] [address] [place] Hyaline Casts,Urine None Seen Normal 0-8 [facility] Comment on above: Order Comment: Name Collection Type:: Straight Catheter Result Comment: PERF ORMED BY: [place] [address] PATHOLOGIST RING FACER TRACY DICKERSON M.D. Performed By: #### C OVID-19 TERE, SOFIANEG #### [facility] [address] RBC LM.HPF (Urine sed) [#/Area] 0 /[HPF] Normal 0-4 [facility] Comment on above: Order Comment: Name Collection Type:: Straight Catheter Performed By: #### C OVID-19 TERE, SOFIANEG #### [facility] [address] Squamous Epithelial Cell,Urine None Seen Normal 0-2 [facility] Comment on above: Order Comment: Name Collection Type:: Straight Catheter Performed By: #### C OVID-19 TERE, SOFIANEG #### [facility] [address] WBC,Urine None Seen Normal 0-4 [facility] Comment on above: Order Comment: Name Collection Type:: Straight Catheter Performed By: #### C OVID-19 TERE, SOFIANEG #### [facility] [address] [place] [address] Globulin Calc (S) [Mass/Vol] Ordered By: Marty Mclean on 06-14-2022 Globulin (S) [Mass/Vol] 3.5 g/dL [facility] Ketones Auto test strip (U) [Mass/Vol]Ordered By: Marty Mclean on 06-14-2022 Ketones (U) [Mass/Vol] Negative Negative [facility] - UrinalysisOrder ed By: Marty Mclean on 06-14-2022 Hyaline casts LM Ql (Urine sed) None seen [LPF] 0-8 [facility] Monocyte %Ordered By: Marlene Guerra on 06-14-2022 Monocyte % 10 umol/L 11-35 [facility] Nitrite Test strip Ql (U)Ord ered By: Marty Mclean on 06-14-2022 Nitrite Ql (U) Negative Negative [facility] Protein Auto test strip (U) [Mass/Vol]Ordered By: Marty Mclean on 06-14-2022 Protein (U) [Mass/Vol] Negative Negative [facility] Protein [Mass/volume] in Ser um or PlasmaOrdered By: Marty Mclean on 06-14-2022 Protein [Mass/Vol] 7.5 g/dL 6.1-7.9 [facility] Serum or plasma alanine reyes otransferase measurement without P-5'-P (enzymatic activiOrdered By: Marty Mclean on 06-14-2022 ALT No additional P-5'-P [Ca talytic activity/Vol] 25 U/L 10-60 [facility] Serum or plasma albumin/glob ulin mass ratioOrdered By: Marty Mclean on 06-14-2022 Albumin/Globulin [Mass ratio] 1.1 {ratio} [facility] Serum or plasma alkaline derek sphatase measurement (enzymatic activity/volume)Ordered By: Marty Mclean on 06-14-2022 ALP [Catalytic activity/Vol] 91 U/L 32-92 [facility] Serum or plasma aspartate am inotransferase measurement (enzymatic activity/volume)Ordered By: Marty Mclean on 06-14-2022 AST [Catalytic activity/Vol] 17 U/L 10-42 [facility] Serum or plasma total biliru bin measurement (mass/volume)Ordered By: Marty Mclean on 06-14-2022 Bilirubin [Mass/Vol] 0.9 mg/dL 0.3-1.[address] [facility] Tere Ag Negativeon 06-14-19 Tere Ag Negative Negative Normal Negative [facility] Comment on above: Result Comment: This is a duplicate Tere SARS Antigen (CHU) result to be used for statistical tracking purpose only. PERFORMED BY: [facility] [address] [place] [address] PATHOLOGIST RING FACER TRACY DICKERSON M.D. Performed By: #### C OVID-19 TERE, SOFIANEG #### [address] Specific gravity Auto test s trip (U) [Rel density]Ordered By: Marty Mclean on 06-14-2022 Specific gravity (U) [Rel density] 1.018 1.001-1.030 [facility] Squamous epithelial cells de tection in urine sediment by light microscopyOrdered By: Marty Mclean on 06-14-2022 Epithelial cells.squamous LM Ql (Urine sed) None seen [HPF] 0-2 [facility] Urinalysison 06-14-2022 Appearance (U) Clear Normal Clear [facility] Comment on above: Order Comment: Name Collection Type:: Straight Catheter Performed By: #### C OVID-19 TERE, SOFIANEG #### [facility] [address] [place] [address] [place] Bilirubin,Urine Negative Normal Negative [facility] Comment on above: Order Comment: Name Collection Type:: Straight Catheter Performed By: #### C OVID-19 TERE, SOFIANEG #### [facility] [address] [place] [address] [place] Glucose Ql (U) Normal Normal Normal [facility] Comment on above: Order Comment: Name Collection Type:: Straight Catheter Performed By: #### C OVID-19 TERE, SOFIANEG #### [facility] [address] [place] [address] [place] Ketones Ql (U) Negative Normal Negative [facility] Comment on above: Order Comment: Name Collection Type:: Straight Catheter Performed By: #### C OVID-19 TERE, SOFIANEG #### [facility] [address] [place] [address] [place] Leukocyte esterase Test stri p Ql (U) Negative Normal Negative [facility] Comment on above: Order Comment: Name Collection Type:: Straight Catheter Performed By: #### C OVID-19 TERE, SOFIANEG #### [facility] [address] [place] [address] [place] Nitrite,Urine Negative Normal Negative [facility] Comment on above: Order Comment: Name Collection Type:: Straight Catheter Performed By: #### C OVID-19 TERE, SOFIANEG #### [facility] [address] [place] [address] Occult Blood,Urine Negative Normal Negative [facility] Comment on above: Order Comment: Name Collection Type:: Straight Catheter Result Comment: PERF ORMED BY: [place] [address] PATHOLOGIST RING FACER TRACY DICKERSON M.D. Performed By: #### C OVID-19 TERE, SOFIANEG #### [facility] [address] [place] [address] Protein,Urine Negative Normal Negative [facility] Comment on above: Order Comment: Name Collection Type:: Straight Catheter Performed By: #### C OVID-19 TERE, SOFIANEG #### [address] Specificy [place],Urine 1.018 Normal 1.001-1.030 [facility] Comment on above: Order Comment: Name Collection Type:: Straight Catheter Performed By: #### C OVID-19 TERE, SOFIANEG #### [address] Urobilinogen,Urine Normal Normal Normal [facility] Comment on above: Order Comment: Name Collection Type:: Straight Catheter Performed By: #### C OVID-19 TERE, SOFIANEG #### [address] Urine bacteria detection by automated methodOrdered By: Marty Mclean on 06-14-2022 Bacteria Auto Ql (U) None seen None Seen [facility] Urine clarity by refractomet ry automatedOrdered By: Marty Mclean on 06-14-2022 Clarity Refractometry automated (U) Clear Clear [facility] Urine glucose measurement by automated test strip (mass/volume)Ordered By: Marty Mclean on 06-14-2022 Glucose Auto test strip (U) [Mass/Vol] Normal mg/dL Normal [facility] Urine hemoglobin detection b y automated test stripOrdered By: Marty Mclean on 06-14-2022 Hemoglobin Auto test strip Ql (U) Negative Ne gative [facility] Urine leukocyte esterase det ection by automated test stripOrdered By: Marty Mclean on 06-14-2022 Leukocyte esterase Auto test strip Ql (U) Negative Negative [facility] Urine pH measurement by auto mated test stripOrdered By: Marty Mclean on 06-14-2022 pH (U) 6.0 [pH] Normal 5.0-9.0 [facility] Comment on above: Order Comment: Name Collection Type:: Straight Catheter Performed By: #### C OVID-19 TERE, SOFIANEG #### [address] Urobilinogen Auto test strip (U) [Mass/Vol]Ordered By: Marty Mclean on 06-14-2022 Urobilinogen (U) [Mass/Vol] Normal mg/dL Normal [facility] CT head/brain wo conon 06-11 CT head/brain wo con [facility] [place] [address] [place] [address] CT Scan Report Signed Patient: Marley Osborn MR#: [id number] [birth year] : 1955 Acct:[id number] Age/Sex: 66 / F ADM Date: 05/30/22 Loc: Room: [address] [place] [address] Type: ADM IN Attending Dr: Reggie Quintana MD Copies to: Reggie Quintana MD Ordering Provider: Reggie Quintana MD Date of Service: 06/11/22 CT/CT head/brain wo con: fall hit head on floor, nasal and orbital brusing CT BRAIN WITHOUT CONTRAST: CLINICAL HISTORY: Patient fell today and has a lump at the forehead COMPARISON: 06/04/2022 TECHNIQUE: Contiguous axial unenhanced images were obtained through the brain. This CT exam was performed using one or more following dose reduction techniques: Automated exposure control, adjustment of the mA and/or kV according to patient size, or use of iterative reconstruction technique. FINDINGS: Cortical atrophy is again noted. The ventricles are within normal limits for size and position. There are no areas of abnormal attenuation. There is no hemorrhage, mass effect or extra-axial collections. The calvarium is intact. A small subcutaneous hematoma is present at the forehead on the left. CT/CT head/brain wo con IMPRESSION: ATROPHY. NO ACUTE INTRACRANIAL TRAUMA. Impression dictated by: Layne Lew M.D.06/11/2022 7:25 AM Dictation Location: [facility] Transcribed By: UGO 06/11/22 0725 Dictated By: Layne Lew MD 06/11/22 0721 Signed By: 06/11/22 07[address] [facility] [address] head/brain wo conon 06-04 CT head/brain wo con [facility] [place] [address] [place] [address] CT Scan Report Signed Patient: Marley Osborn MR#: [id number] [birth year] : 1955 Acct:[id number] Age/Sex: 66 / F ADM Date: 05/30/22 Loc: Room: [address] [place] [address] Type: ADM IN Attending Dr: Reggie Quintana MD Copies to: MD Reggie Caceres MD Ordering Provider: Marty Mclean MD Date of Service: 06/04/22 CT/CT head/brain wo con: Confusion CT BRAIN WITHOUT CONTRAST: CLINICAL HISTORY: Confusion, dizziness. COMPARISON: None TECHNIQUE: Contiguous axial unenhanced images were obtained through the brain. This CT exam was performed using one or more following dose reduction techniques: Automated exposure control, adjustment of the mA and/or kV according to patient size, or use of iterative reconstruction technique. FINDINGS: There is no evidence of midline shift, intra or extra-axial fluid collection, hemorrhage or CT evidence of stroke. Posterior fossa appears unremarkable. Visualized intraorbital contents appear unremarkable. Visualized paranasal sinuses are clear. The surrounding soft tissues are normal. CT/CT head/brain wo con IMPRESSION: NO ACUTE INTRACRANIAL ABNORMALITY. Impression dictated by: Cody Zayas Jr., D.OKarolina06/04/2022 1:44 PM Dictation Location: [facility]08 Transcribed By: UGO 06/04/22 1344 Dictated By: Cody Zayas Jr, DO 06/04/22 1342 Signed By: 06/04/22 1344 Normal [facility] Basic Metabolic Panelon - Anion gap [Moles/Vol] 10.2 mmol/L Normal 6.0-15.0 [facility] Comment on above: Performed By: #### C BC #### [facility] [address] Calcium [Mass/Vol] 9.6 mg/dL Normal 8.2-10.2 [facility] Comment on above: Performed By: #### C BC #### [facility] [address] Chloride [Moles/Vol] 107 mmol/L Normal 95-[address] [facility] Comment on above: Performed By: #### C BC #### [facility] [address] CO2 [Moles/Vol] 26.8 mmol/L Normal 22.0-30.0 [facility] Comment on above: Performed By: #### C BC #### [facility] [address] Creatinine [Mass/Vol] 1.33 mg/dL High 0.44-1.03 [facility] Comment on above: Performed By: #### C BC #### [facility] [address] [place] [address] [place] Creatinine Clr Calc Pharmacy 38.28 [facility] Comment on above: Result Comment: PERF ORMED BY: [place] [address] PATHOLOGIST RING FACER TRACY DICKERSON M.D. Performed By: #### C BC #### [place] [address] [place] Estimated GFR ( Emilie 48 [facility] Comment on above: Result Comment: GFR estimated reference range: According to KDOQI guidelines, <60 ml/min/1.73m2 is sufficient to diagnose a patient with chronic kidney disease. Performed By: #### C BC #### [facility] [address] [place] [address] [place] Estimated GFR (Non- Am 40 Normal [facility] Comment on above: Performed By: #### C BC #### [facility] [address] Glucose [Mass/Vol] 81 mg/dL Normal 70-100 [facility] Comment on above: Result Comment: [place] Glucose Reference Range is dependent on time and content of last meal. Glucose of more than 200 mg/dL in a nonstressed, ambulatory subject supports the diagnosis of Diabetes Mellitus. ADA recommended reference range Performed By: #### C BC #### [address] Potassium [Moles/Vol] 4.0 mmol/L Normal 3.5-5.1 [facility] Comment on above: Performed By: #### C BC #### [address] Sodium [Moles/Vol] 140 mmol/L Normal 136-146 [facility] Comment on above: Performed By: #### C BC #### [place] [address] [place] Urea nitrogen [Mass/Vol] 27 mg/dL High 9-23 [facility] Comment on above: Performed By: #### C BC #### [address] Complete Blood Count Auto Di ffon 06-02-2022 Basophils (Bld) [#/Vol] 0.0 10*3/uL Normal 0.0-0.2 [facility] Comment on above: Result Comment: PERF ORMED BY: [place] [address] PATHOLOGIST RING FACER TRACY DICKERSON M.D. Performed By: #### C BC #### [place] [address] [place] Basophils/100 WBC (Bld) 0.6 % Normal . [facility] Comment on above: Performed By: #### C BC #### [place] [address] Eosinophils (Bld) [#/Vol] 0.2 10*3/uL Normal 0.0-0.45 [facility] Comment on above: Performed By: #### C BC #### [address] Eosinophils/100 WBC (Bld) 3.8 % Normal . [facility] Comment on above: Performed By: #### C BC #### [address] Erythrocyte distribution wid th (RBC) [Ratio] 15.3 % Normal 11.9-15.3 [facility] Comment on above: Performed By: #### C BC #### [address] Hematocrit (Bld) [Volume fraction] 26.8 % Low 34.0-46.4 [facility] Comment on above: Performed By: #### C BC #### [address] Hemoglobin (Bld) [Mass/Vol] 8.9 g/dL Low 11.8-15. 4 [facility] Comment on above: Performed By: #### C BC #### [address] Lymphocytes (Bld) [#/Vol] 1.0 10*3/uL Normal 1.00-4.8 [facility] Comment on above: Performed By: #### C BC #### [address] Lymphocytes/100 WBC (Bld) 22.6 % Normal . [facility] Comment on above: Performed By: #### C BC #### [address] MCH (RBC) [Entitic mass] 30.2 pg Normal 24.7-34.3 [facility] Comment on above: Performed By: #### C BC #### [address] MCV (RBC) [Entitic vol] 90.2 fL Normal 80-100 [facility] Comment on above: Performed By: #### C BC #### [facility] [address] Mean Corpuscular HGB Conc 33.5 g/dL Normal 32.0-35.0 [facility] Comment on above: Performed By: #### C BC #### [facility] [address] [place] [address] [place] Monocytes (Bld) [#/Vol] 0.4 10*3/uL Normal 0.0-0.8 [facility] Comment on above: Performed By: #### C BC #### [facility] [address] Monocytes/100 WBC (Bld) 9.2 % Normal . [facility] Comment on above: Performed By: #### C BC #### [facility] [address] Neutrophils (Bld) [#/Vol] 2.9 10*3/uL Normal 1.8-7.7 [facility] Comment on above: Performed By: #### C BC #### [facility] [address] Neutrophils/100 WBC (Bld) 63.8 % Normal . [facility] Comment on above: Performed By: #### C BC #### [facility] [address] [place] [address] [place] NRBC% 0.3 /100{WBC} Normal 0-0.5 [facility] Comment on above: Performed By: #### C BC #### [facility] [address] Platelet mean volume (Bld) [Entitic vol] 9.2 fL Normal 6.3-10.7 [facility] Comment on above: Performed By: #### C BC #### [facility] [address] [place] [address] [place] Platelets (Bld) [#/Vol] 131 10*3/uL Low 150-450 [facility] Comment on above: Performed By: #### C BC #### [facility] [address] RBC (Bld) [#/Vol] 2.97 10*6/uL Low 3.60-5.00 [facility] Comment on above: Performed By: #### C BC #### [facility] [address] WBC (Bld) [#/Vol] 4.6 10*3/uL Normal 3.8-11.6 [facility] Comment on above: Performed By: #### C BC #### [facility] [address] Triiodothyronine (T3) Freeon 06-02-2022 Triiodothyronine (T3) Free 2.78 pg/mL Normal 2.50-3.90 [facility] Comment on above: Order Comment: Comme nt can use previous draw if able Result Comment: PERF ORMED BY: [place] [address] PATHOLOGIST RING FACER TRCAY IDCKERSON M.D. Performed By: #### C BC #### [address] Triiodothyronine (T3) Free [ Mass/volume] in Serum or PlasmaOrdered By: Anca Wheeler on 06-02-2022 Free T3 [Mass/Vol] 2.78 pg/mL 2.50-3.90 [facility] Ammoniaon 06-01-2022 Ammonia (P) [Moles/Vol] 15 umol/L Normal 11-35 [facility] Comment on above: Result Comment: PERF ORMED BY: [place] [address] PATHOLOGIST RING FACER TRACY DICKERSON M.D. Performed By: #### A MM, BMP, CBC #### [facility] [address] [place] [address] Basic Metabolic Panelon 12-3 Anion gap [Moles/Vol] 8.8 mmol/L Normal 6.0-15.0 [facility] Comment on above: Performed By: #### A MM, BMP, CBC #### [facility] [address] Calcium [Mass/Vol] 9.4 mg/dL Normal 8.2-10.2 [facility] Comment on above: Performed By: #### A MM, BMP, CBC #### [facility] [address] [place] [address] [place] Chloride [Moles/Vol] 110 mmol/L Normal 95-[address] [facility] Comment on above: Performed By: #### A MM, BMP, CBC #### [facility] [address] CO2 [Moles/Vol] 26.4 mmol/L Normal 22.0-30.0 [facility] Comment on above: Performed By: #### A MM, BMP, CBC #### [address] Creatinine [Mass/Vol] 1.12 mg/dL High 0.44-1.03 [facility] Comment on above: Performed By: #### A MM, BMP, CBC #### [place] [address] [place] Creatinine Clr Calc Pharmacy 45.46 [facility] Comment on above: Result Comment: PERF ORMED BY: [place] [address] PATHOLOGIST RING FACER TRACY DICKERSON M.D. Performed By: #### A MM, BMP, CBC #### [facility] [address] [place] [address] Estimated GFR ( Emilie 59 [facility] Comment on above: Result Comment: GFR estimated reference range: According to KDOQI guidelines, <60 ml/min/1.73m2 is sufficient to diagnose a patient with chronic kidney disease. Performed By: #### A MM, BMP, CBC #### [facility] [address] [place] [address] [place] Estimated GFR (Non- Am 49 [facility] Comment on above: Performed By: #### A SHANE BORRERO, CBC #### [facility] [address] Glucose [Mass/Vol] 79 mg/dL Normal 70-100 [facility] Comment on above: Result Comment: [place] Glucose Reference Range is dependent on time and content of last meal. Glucose of more than 200 mg/dL in a nonstressed, ambulatory subject supports the diagnosis of Diabetes Mellitus. ADA recommended reference range Performed By: #### A SHANE BORRERO, CBC #### [facility] [address] Potassium [Moles/Vol] 3.2 mmol/L Low 3.5-5.1 [facility] Comment on above: Performed By: #### A SHANE BORRERO, CBC #### [facility] [address] Sodium [Moles/Vol] 142 mmol/L Normal 136-146 [facility] Comment on above: Performed By: #### A SHANE BORRERO, CBC #### [facility] [address] Urea nitrogen [Mass/Vol] 25 mg/dL High 9-23 [facility] Comment on above: Performed By: #### A SHANE BORRERO, CBC #### [facility] [address] biopsyOrdered By: Anca walter on 06-01-2022 Transferrin [Mass/Vol] 207 mg/dL 180-380 [facility] Complete Blood Count Auto Di ffon 06-01-2022 Basophils (Bld) [#/Vol] 0.0 10*3/uL Normal 0.0-0.2 [facility] Comment on above: Result Comment: PERF ORMED BY: [place] [address] PATHOLOGIST RING FACER TRACY DICKERSON M.D. Performed By: #### C OVID-19 TERE, SOFIANEG #### [place] [address] [place] Basophils/100 WBC (Bld) 0.5 % Normal . [facility] Comment on above: Performed By: #### C OVID-19 TERE, SOFIANEG #### [facility] [address] Eosinophils (Bld) [#/Vol] 0.2 10*3/uL Normal 0.0-0.45 [facility] Comment on above: Performed By: #### C OVID-19 TERE, SOFIANEG #### [facility] [address] Eosinophils/100 WBC (Bld) 4.1 % Normal . [facility] Comment on above: Performed By: #### C OVID-19 TERE, SOFIANEG #### [address] Erythrocyte distribution wid th (RBC) [Ratio] 14.7 % Normal 11.9-15.3 [facility] Comment on above: Performed By: #### C OVID-19 TERE, SOFIANEG #### [address] Hematocrit (Bld) [Volume fraction] 27.0 % Low 34.0-46.4 [facility] Comment on above: Performed By: #### C OVID-19 TERE, SOFIANEG #### [address] Hemoglobin (Bld) [Mass/Vol] 8.9 g/dL Low 11.8-15. 4 [facility] Comment on above: Performed By: #### C OVID-19 TERE, SOFIANEG #### [facility] [address] [place] [address] [place] Lymphocytes (Bld) [#/Vol] 1.3 10*3/uL Normal 1.00-4.8 [facility] Comment on above: Performed By: #### C OVID-19 TERE, SOFIANEG #### [facility] [address] [place] [address] Lymphocytes/100 WBC (Bld) 26.3 % Normal . [facility] Comment on above: Performed By: #### C OVID-19 TERE, SOFIANEG #### [facility] [address] MCH (RBC) [Entitic mass] 30.0 pg Normal 24.7-34.3 [facility] Comment on above: Performed By: #### C OVID-19 TERE, SOFIANEG #### [address] MCV (RBC) [Entitic vol] 90.7 fL Normal 80-100 [facility] Comment on above: Performed By: #### C OVID-19 TERE, SOFIANEG #### [address] Mean Corpuscular HGB Conc 33.0 g/dL Normal 32.0-35.0 [facility] Comment on above: Performed By: #### C OVID-19 TERE, SOFIANEG #### [address] Monocytes (Bld) [#/Vol] 0.6 10*3/uL Normal 0.0-0.8 [facility] Comment on above: Performed By: #### C OVID-19 TERE, SOFIANEG #### [address] Monocytes/100 WBC (Bld) 11.7 % Normal . [facility] Comment on above: Performed By: #### C OVID-19 TERE, SOFIANEG #### [address] Neutrophils (Bld) [#/Vol] 2.9 10*3/uL Normal 1.8-7.7 [facility] Comment on above: Performed By: #### C OVID-19 TERE, SOFIANEG #### [place] [address] [place] Neutrophils/100 WBC (Bld) 57.4 % Normal . [facility] Comment on above: Performed By: #### C OVID-19 TERE, SOFIANEG #### [address] NRBC% 0.3 /100{WBC} Normal 0-0.5 [facility] Comment on above: Performed By: #### C OVID-19 TERE, SOFIANEG #### [facility] [address] Platelet mean volume (Bld) [Entitic vol] 9.1 fL Normal 6.3-10.7 [facility] Comment on above: Performed By: #### C OVID-19 TERE, SOFIANEG #### [facility] [address] Platelets (Bld) [#/Vol] 95 10*3/uL Low 150-450 [facility] Comment on above: Performed By: #### C OVID-19 TERE, SOFIANEG #### [address] RBC (Bld) [#/Vol] 2.97 10*6/uL Low 3.60-5.00 [facility] Comment on above: Performed By: #### C OVID-19 TERE, SOFIANEG #### [address] WBC (Bld) [#/Vol] 5.1 10*3/uL Normal 3.8-11.6 [facility] Comment on above: Performed By: #### C OVID-19 TERE, SOFIANEG #### [facility] [address] [place] [address] Ferritinon 06-01-2022 Ferritin [Mass/Vol] 212.1 ng/mL Normal 11-306.[address] [facility] Comment on above: Order Comment: Comme nt can use previous draw if able Comment can use previous draw if able Performed By: #### V [id number], GASPER, FE and TIBC, TSH3 #### [facility] [address] Ferritin [Mass/volume] in Se rum or PlasmaOrdered By: Anca Wheeler on 06-01-2022 Ferritin [Mass/Vol] 212.1 ng/mL 11-306.[address] [facility] Folate [Mass/volume] in Seru m or PlasmaOrdered By: Anca Wheeler on 06-01-2022 Folate [Mass/Vol] 5.6 ng/mL >5.9 [facility] Comment on above: Folate reference ran ge: >5.9 ng/mlThe WHO technical consultation on folate and vitamin [id number] has determined that folate concentrations lessthan 4 ng/ml are considered deficient. Iron [Mass/volume] in Serum or PlasmaOrdered By: Anca Wheeler on 06-01-2022 Iron [Mass/Vol] 51 ug/dL 40-150 [facility] Iron and TIBC Profileon 12- % Iron Saturation 17.6 % Low 20-50 [facility] Comment on above: Order Comment: Comme nt can use previous draw if able Comment can use previous draw if able Performed By: #### V [id number], GASPER, FE and TIBC, TSH3 #### [facility] [address] Iron [Mass/Vol] 51 ug/dL Normal 40-150 [facility] Comment on above: Order Comment: Comme nt can use previous draw if able Comment can use previous draw if able Performed By: #### V [id number], GASPER, FE and TIBC, TSH3 #### [facility] [address] [place] [id number] [facility] Total Iron Binding Capacity 290 ug/dL Normal 255-450 [facility] Comment on above: Order Comment: Comme nt can use previous draw if able Comment can use previous draw if able Performed By: #### V [id number], GASPER, FE and TIBC, TSH3 #### [facility] [address] [place] [id number] [facility] Transferrin [Mass/Vol] 207 mg/dL Normal 180-380 [facility] Comment on above: Order Comment: Comme nt can use previous draw if able Comment can use previous draw if able Performed By: #### V [id number], GASPER, FE and TIBC, TSH3 #### [facility] [address] Iron binding capacity [Mass/ volume] in Serum or PlasmaOrdered By: Anca Wheeler on 06-01-2022 Iron binding capacity [Mass/Vol] 290 ug/dL 255 -450 [facility] Iron saturation [Mass Fracti on] in Serum or PlasmaOrdered By: Anca Wheeler on 06-01-2022 Iron saturation [Mass fraction] 17.6 % 20-5 0 [facility] Laboratory - Chemistry and C hemistry - challengeOrdered By: Anca Wheeler on 06-01-2022 Cobalamin (Vitamin B12) [Mass/Vol] 452 pg/mL 180-914 [facility] TSH DL <= 0.005 mIU/L QnOrde red By: Anca Wheeler on 06-01-2022 TSH Qn 2.65 m[IU]/L 0.45-5.33 [facility] Thyroid Stimulating Hormoneo n 06-01-2022 TSH Qn 2.65 m[IU]/L Normal 0.45-5.33 [facility] Comment on above: Order Comment: Sofiee nt can use previous draw if able Comment can use previous draw if able Result Comment: PERF ORMED BY: [facility] [address] [place] [address] PATHOLOGIST RING FACER TRACY DICKERSON M.D. Performed By: #### V [id number], GASPER, FE and TIBC, TSH3 #### [facility] [address] Vit. B12/Folate Profileon Cobalamin (Vitamin B12) [Mass/Vol] 452 pg/mL Normal 180-914 [facility] Comment on above: Order Comment: Comme nt can use previous draw if able Comment can use previous draw if able Performed By: #### V [id number], GASPER, FE and TIBC, TSH3 #### [facility] [address] Folate 5.6 ng/mL Low >5.9 [facility] Comment on above: Order Comment: Comme nt can use previous draw if able Comment can use previous draw if able Result Comment: Yazmin te reference range: >5.9 ng/ml The WHO technical consultation on folate and vitamin b12 deficiencies has determined that folate concentrations less than 4 ng/ml are considered deficient. Performed By: #### V [id number], GASPER, FE and TIBC, TSH3 #### [facility] [address] [place] [address] [place] Casts typing in urine sedime nt by light microscopyOrdered By: Reggie Quintana on 05-31-2022 Casts LM Nom (Urine sed) None seen [LPF] None S een [facility] Cholesterol [Mass/volume] in Serum or PlasmaOrdered By: Reggie Quintana on 05-31-2022 Cholesterol [Mass/Vol] 139 mg/dL 140-200 [facility] Comment on above: Chol less than 200 m g/dl low riskChol 201-239 mg/dl borderline riskChol 240 mg/dl and greater high risk Cholesterol in LDL Calc [Mas s/Vol]Ordered By: Reggie Quintana on 05-31-2022 Cholesterol in LDL [Mass/Vol] 50 mg/dL 0-100 [facility] Comment on above: LDL ATP III CLASSIFI CATIONLDL less than 100 mg/dL OptimalLDL 100-129 mg/dL Near or above optimalLDL 130-159 mg/dL Borderline highLDL 160-189 mg/dL HighLDL greater than 189 mg/dL Very high Cholesterol in VLDL Calc [Ma ss/Vol]Ordered By: Reggie Quintana on 05-31-2022 Cholesterol in VLDL [Mass/Vol] 16 mg/dL [facility] Dipstick and Microscopicon 1 Appearance (U) Clear Normal Clear [facility] Comment on above: Order Comment: Name Collection Type:: Clean-Voided Midstream Performed By: #### C OVID-19 TERE, SOFIANEG #### [facility] [address] [place] [address] [place] Bacteria,Urine Rare High None Seen [facility] Comment on above: Order Comment: Name Collection Type:: Clean-Voided Midstream Performed By: #### C OVID-19 TERE, SOFIANEG #### [facility] [address] [place] [address] [place] Bilirubin,Urine Negative Normal Negative [facility] Comment on above: Order Comment: Name Collection Type:: Clean-Voided Midstream Performed By: #### C OVID-19 TERE, SOFIANEG #### [facility] [address] [place] [address] [place] Color (U) Yellow Normal Yellow [facility] Comment on above: Order Comment: Name Collection Type:: Clean-Voided Midstream Performed By: #### C OVID-19 TERE, SOFIANEG #### [facility] [address] [place] [address] [place] Fine Granular Casts,Urine 1-2 High 0-1 [facility] Comment on above: Order Comment: Name Collection Type:: Clean-Voided Midstream Performed By: #### C OVID-19 TERE, SOFIANEG #### [facility] [address] [place] [address] Glucose Ql (U) Normal Normal Normal [facility] Comment on above: Order Comment: Name Collection Type:: Clean-Voided Midstream Performed By: #### C OVID-19 TERE, SOFIANEG #### [facility] [address] [place] [address] [place] Hyaline Casts,Urine 10-19 High 0-1 [facility] Comment on above: Order Comment: Name Collection Type:: Clean-Voided Midstream Performed By: #### C OVID-19 TERE, SOFIANEG #### [facility] [address] [place] [address] [place] Ketones Ql (U) Negative Normal Negative [facility] Comment on above: Order Comment: Name Collection Type:: Clean-Voided Midstream Performed By: #### C OVID-19 TERE, SOFIANEG #### [facility] [address] [place] [address] [place] Leukocyte esterase Test stri p Ql (U) 2+ High Negative [facility] Comment on above: Order Comment: Name Collection Type:: Clean-Voided Midstream Performed By: #### C OVID-19 TERE, SOFIANEG #### [facility] [address] [place] [address] [place] Mucus,Urine 4+ Critically abnormal [facility] Comment on above: Order Comment: Name Collection Type:: Clean-Voided Midstream Result Comment: PERF ORMED BY: [place] [address] PATHOLOGIST RING FACER TRACY DICKERSON M.D. Performed By: #### C OVID-19 TERE, SOFIANEG #### [place] [address] [place] Nitrite,Urine Negative Normal Negative [facility] Comment on above: Order Comment: Name Collection Type:: Clean-Voided Midstream Performed By: #### C OVID-19 TERE, SOFIANEG #### [address] Occult Blood,Urine Trace High Negative [facility] Comment on above: Order Comment: Name Collection Type:: Clean-Voided Midstream Result Comment: PERF ORMED BY: [place] [address] PATHOLOGIST RING FACER TRACY DICKERSON M.D. Performed By: #### C OVID-19 TERE, SOFIANEG #### [address] Other Casts,Urine None Seen Normal None Seen [facility] Comment on above: Order Comment: Name Collection Type:: Clean-Voided Midstream Performed By: #### C OVID-19 TERE, SOFIANEG #### [facility] [address] [place] [address] pH (U) 5.5 [pH] Normal 5.0-9.0 [facility] Comment on above: Order Comment: Name Collection Type:: Clean-Voided Midstream Performed By: #### C OVID-19 TERE, SOFIANEG #### [place] [address] [place] Protein,Urine Negative Normal Negative [facility] Comment on above: Order Comment: Name Collection Type:: Clean-Voided Midstream Performed By: #### C OVID-19 TERE, SOFIANEG #### [address] [place] [address] [place] RBC,Urine 3-4 Normal 0-4 [facility] Comment on above: Order Comment: Name Collection Type:: Clean-Voided Midstream Performed By: #### C OVID-19 TERE, SOFIANEG #### [address] Specificy [place],Urine 1.030 Normal 1.001-1.030 [facility] Comment on above: Order Comment: Name Collection Type:: Clean-Voided Midstream Performed By: #### C OVID-19 TERE, SOFIANEG #### [place] [address] [place] Squamous Epithelial Cell,Urine 3-4 High 0-2 [facility] Comment on above: Order Comment: Name Collection Type:: Clean-Voided Midstream Performed By: #### C OVID-19 TERE, SOFIANEG #### [address] Uric Acid Crystals,Urine 3+ Normal [facility] Comment on above: Order Comment: Name Collection Type:: Clean-Voided Midstream Performed By: #### C OVID-19 TERE, SOFIANEG #### [address] Urobilinogen,Urine Normal Normal Normal [facility] Comment on above: Order Comment: Name Collection Type:: Clean-Voided Midstream Performed By: #### C OVID-19 TERE, SOFIANEG #### [place] [address] [place] WBC,Urine 10-19 High 0-4 [facility] Comment on above: Order Comment: Name Collection Type:: Clean-Voided Midstream Performed By: #### C OVID-19 TERE, SOFIANEG #### [address] Fine granular cast count in urine sediment by microscopy (number/low power field )Ordered By: Reggie Quintana on 05-31-2022 Fine Granular Casts LM.LPF ( Urine sed) [#/Area] 1-2 [LPF] 0-1 [facility] Lipid Panelon 05-31-2022 Cholesterol [Mass/Vol] 139 mg/dL Low 140-200 [facility] Comment on above: Result Comment: Chol less than 200 mg/dl low risk Chol 201-239 mg/dl borderline risk Chol 240 mg/dl and greater high risk Performed By: #### C OVID-19 TERE, SOFIANEG #### [facility] [address] [place] [address] [place] Cholesterol in HDL [Mass/Vol] 73 mg/dL Normal 35-85 [facility] Comment on above: Result Comment: HDL CHOL ATP-III CLASSIFICATION Cardiovascular Risk HDL > or equal to 60 mg/dL LOW HDL < 40 mg/dL HIGH Performed By: #### C OVID-19 TERE, SOFIANEG #### [facility] [address] [place] [address] [place] Cholesterol.total/Cholestero l in HDL [Mass ratio] 1.9 {ratio} Normal <5.0 [facility] Comment on above: Performed By: #### C OVID-19 TERE, SOFIANEG #### [facility] [address] [place] [address] [place] LDL Cholesterol,Calculated 50 mg/dL Normal 0-100 [facility] Comment on above: Result Comment: LDL ATP III CLASSIFICATION LDL less than 100 mg/dL Optimal LDL 100-129 mg/dL Near or above optimal LDL 130-159 mg/dL Borderline high LDL 160-189 mg/dL High LDL greater than 189 mg/dL Very high Performed By: #### C OVID-19 TERE, SOFIANEG #### [facility] [address] [place] [phone] [place] Triglyceride w/Reflex 81 mg/dL Normal 35-149 [facility] Comment on above: Result Comment: TRIG ATP III CLASSIFICATION TRIG less than 150 mg/dL Normal TRIG 150-199 mg/dL Borderline high TRIG 200-500 mg/dL High TRIG greater than 500 mg/dL Very high Standard traceable to the Center for Disease Conrtrol and Prevention (CDC) test method. Performed By: #### C OVID-19 TERE, SOFIANEG #### [facility] [address] VLDL CHOLESTEROL 16 mg/dL Normal [facility] Comment on above: Performed By: #### C OVID-19 JOHN CARRANZAEG #### [facility] [address] Mucus LM Ql (Urine sed)Order ed By: Reggie Quintana on 05-31-2022 Mucus Ql (Urine sed) 4+ [LPF] [facility] No Panel InformationOrdered By: Reggie Quintana on 05-31-2022 25-Hydroxy Vitamin D Total 13.1 ng/mL 30-100 [facility] Comment on above: VITAMIN D STATUS 25( [place])VITAMIN D RANGE (ng/mL) Deficient <20 Insufficient 20 to <30Sufficient 30 to 100Reference: Ruiz MF,Edgar OLIVAS, Brenda FARMER, et al. Evaluation,treatment, and prevention of vitamin D deficiency; an Endocrine Society clinical practice guideline. JCEM. 2010; 96(7):1911-30. Serum or plasma high density lipoprotein (HDL) cholesterol measurementOrdered By: Reggie Quintana on 05-31-2022 Cholesterol in HDL [Mass/Vol] 73 mg/dL 35-85 [facility] Comment on above: HDL CHOL ATP-III CLA SSIFICATION Cardiovascular RiskHDL > or equal to 60 mg/dL LOWHDL < 40 mg/dL HIGH Serum or plasma total choles terol/high density lipoprotein (HDL) cholesterol mass ratOrdered By: Reggie Quintana on 05-31-2022 Cholesterol.total/Cholestero l in HDL [Mass ratio] 1.9 {ratio} <5.0 [facility] Thyroid Stim Hormone w/Rflxo n 05-31-2022 Thyroid Stim Hormone w/Rflx 2.75 u[iU]/mL Normal 0.45-5.33 [facility] Comment on above: Performed By: #### C OVID-19 MARIA M CARRANZA #### [facility] [address] Triglyceride [Mass/volume] i n Serum or PlasmaOrdered By: Reggie Quintana on 05-31-2022 Triglyceride [Mass/Vol] 81 mg/dL 35-149 [facility] Comment on above: TRIG ATP III CLASSIF ICATIONTRIG less than 150 mg/dL NormalTRIG 150-199 mg/dL Borderline highTRIG 200-500 mg/dL High TRIG greater than 500 mg/dL Very highStandard traceable to the Center for Disease Conrtrol and Prevention (CDC) test method. Urine Cultureon 05-31-2022 Bacteria identified Cx Nom (U) <9,000 colonies/ml mixed bacterial skin contaminants 2 Days PERFORMED BY: [place] [address] PATHOLOGIST RING FACER TRACY DICKERSON M.D. Normal [facility] Comment on above: Performed By: #### C OVID-19 TERE SOFIANEG #### [address] Urine sediment uric acid cry stal count by microscopy (number/high power field)Ordered By: Reggie Quintana on 05-31-2022 Urate crystals LM.HPF (Urine sed) [#/Area] 3+ [HPF] [facility] Vitamin D 25 Hydroxy Totalon 05-31-2022 Vitamin D 25 Hydroxy Total 13.1 ng/mL Low 30-100 [facility] Comment on above: Result Comment: BANDAR MIN D STATUS 25([place])VITAMIN D RANGE (ng/mL) Deficient <20 Insufficient 20 to <30 Sufficient 30 to 100 Reference: Ruiz MF,Edgar NC, Brenda FARMER, et al. Evaluation,treatment, and prevention of vitamin D deficiency; an Endocrine Society clinical practice guideline. JCEM. 2010; 96(7):1911-30. PERFORMED BY: [place] [address] PATHOLOGIST RING FACER TRACY DICKERSON M.D. Performed By: #### C OVID-19 TERE, SOFIANEG #### [place] [id number] [facility] CBC AUTO DIFFon 05-30-2022 BASO # 0.0 103/ul Normal 0.0-0.1 [facility] Comment on above: Performed By: #### C BC ####[facility] [address] [place] [id number]. Soniya Chi Basophils/100 WBC (Bld) 0.2 % Normal 0.2-2.0 [facility] Comment on above: Performed By: #### C BC ####[facility] [address] [place] [address]Dr. Soniya Chi EO # 0.1 103/ul Normal 0.0-0.7 [facility] Comment on above: Performed By: #### C BC ####[facility] [address] [place], [place] [address]Dr. Soniya Chi Eosinophils/100 WBC (Bld) 1.0 % Normal 0.9-7.0 [facility] Comment on above: Performed By: #### C BC ####[facility] [address] [place], [place] [address]Dr. Soniya Chi Erythrocyte distribution wid th (RBC) [Ratio] 14.4 % Normal 11.0-15.0 [facility] Comment on above: Performed By: #### C BC ####[facility] [address] [place], [place] [address]Dr. Soniya Chi Hematocrit (Bld) [Volume fraction] 30.0 % Critically low 36.0-48.0 [facility] Comment on above: Performed By: #### C BC ####[facility] [address] [place], [place] [address]Dr. Soniya Chi Hemoglobin (Bld) [Mass/Vol] 9.7 g/dL Critically low 12.0 -16.0 [facility] Comment on above: Performed By: #### C BC ####[facility] [address]ks[address] [place], [place] [address]Dr. Soniya Chi IG # 0.04 10e3/ul Critically high 0.00-0.03 [facility] Comment on above: Performed By: #### C BC ####[facility] [address] [place], [place] [address]Dr. Soniya Chi IG % 0.5 % Normal 0.0-0.5 [facility] Comment on above: Performed By: #### C BC ####[facility] [address] [place] [address]Dr. Soniya Chi LYMPH # 0.8 103/ul Critically low 1.2-3.8 [facility] Comment on above: Performed By: #### C BC ####[facility] [address] [place], [place] [address]Fw. Soniya Chi Lymphocytes/100 WBC (Bld) 10.0 % Critically low 20.5-6 0.0 [facility] Comment on above: Performed By: #### C BC ####[facility] [address] [place] [address]Dr. Soniya Chi MANUAL DIFF REQ NO Normal [facility] Comment on above: Performed By: #### C BC ####[facility] Sm[address] [place] [address]Dr. Soniya Chi MCH (RBC) [Entitic mass] 29.8 pg Normal 26.7-34.0 [facility] Comment on above: Performed By: #### C BC ####[facility] [address] [place] [address]Dr. Soniya Chi MCHC (RBC) [Mass/Vol] 32.3 g/dL Normal 29.9-35.2 [facility] Comment on above: Performed By: #### C BC ####[facility] [address] [place] [address]DrKarolina Chi MCV (RBC) [Entitic vol] 92.3 fL Normal 81.0-99.0 [facility] Comment on above: Performed By: #### C BC ####[facility] [address] [place] [address]DrKarolina Chi MONO # 0.8 103/ul Normal 0.3-0.8 [facility] Comment on above: Performed By: #### C BC ####[facility] [address] [place] [address]DrKarolina Chi Monocytes/100 WBC (Bld) 9.4 % Normal 1.7-12.0 [facility] Comment on above: Performed By: #### C BC ####[facility] [address] [place] [address]DrKarolina Betancurjuan Alon NEUT # 6.5 103/ul Normal 1.4-6.5 [facility] Comment on above: Performed By: #### C BC ####[facility] [address] [place] [address]DrKarolina Chi Neutrophils/100 WBC (Bld) 78.9 % Critically high 43.0- 75.0 [facility] Comment on above: Performed By: #### C BC ####[facility] [address] [place] [address]DrKarolina Chi Platelet mean volume (Bld) [ Entitic vol] 10.2 fL Normal 9.5-13.5 [facility] Comment on above: Performed By: #### C BC ####[facility] Ap[address] [place], [place] [address]DrKarolina Chi PLT 103 103/ul Critically low 150-450 [facility] Comment on above: Performed By: #### C BC ####[facility] [address] [place], [place] [address]DrKarolina Chi RBC 3.25 106/ul Critically low 4.20-5.40 [facility] Comment on above: Performed By: #### C BC ####[facility] [address] [place] [address]DrKarolina Chi WBC 8.2 103/ul Normal 4.0-11.0 [facility] Comment on above: Performed By: #### C BC ####[facility] [address] [place] [address]DrKarolina Chi PROF 14(COMP METB)on 022 Albumin [Mass/Vol] 2.8 g/dL Critically low 3.4-5.0 [facility] Comment on above: Performed By: #### C MP ####[facility] [address] [place], [place] [address]DrKarolina Byrnes Alon Albumin/Globulin [Mass ratio] 0.8 {ratio} Normal [facility] Comment on above: Performed By: #### C MP ####[facility] [address] [place] [address]Dr. Soniya Alon ALP [Catalytic activity/Vol] 78 U/L Normal 46-116 [facility] Comment on above: Performed By: #### C MP ####[facility] [address] [place] [address]Dr. Soniya Alon ALT [Catalytic activity/Vol] 26 U/L Normal 14-59 [facility] Comment on above: Performed By: #### C MP ####[facility] K[address] [place], [place] [address]Dr. Soniya Chi Anion gap [Moles/Vol] 11.3 mmol/L Normal [facility] Comment on above: Performed By: #### C MP ####[facility] Ofyw[address]vms[address] [place], [place] [address]Dr. Soniya Alon AST [Catalytic activity/Vol] 35 U/L Normal 15-37 [facility] Comment on above: Performed By: #### C MP ####[facility] P[address] [place], [place] [address]Dr. Soniya Chi Bilirubin [Mass/Vol] 0.9 mg/dL Normal 0.2-1.0 [facility] Comment on above: Performed By: #### C MP ####[facility] [address] [place] [address]Dr. Soniya Chi Calcium [Mass/Vol] 9.2 mg/dL Normal 8.5-10.1 [facility] Comment on above: Performed By: #### C MP ####[facility] [address] [place] [address]Dr. Soniya Chi Chloride [Moles/Vol] 113 mmol/L Critically high 98-107 [facility] Comment on above: Performed By: #### C MP ####[facility] [address] [place] [address]Dr. Soniya Chi CO2 [Moles/Vol] 26.5 mmol/L Normal 21.0-32.0 [facility] Comment on above: Performed By: #### C MP ####[facility] [address] [place] [address]Dr. Soniya Alon Creatinine [Mass/Vol] 1.21 mg/dL Critically high 0.55-1.02 [facility] Comment on above: Performed By: #### C MP ####[facility] [address]ch[address] [place] [address]Dr. Soniya Chi EGFR-AF SRI LANKAN 54 mL/min/1.73m2 Critically low >=60 [facility] Comment on above: Performed By: #### C MP ####[facility] [address] [place], [place] [address]Dr. Soniya Chi EGFR-NON AF SRI LANKAN 44 mL/min/1.73m2 Critically low >=60 [facility] Comment on above: Performed By: #### C MP ####[facility] [address] [place], [place] [address]Dr. Soniya Chi Globulin (S) [Mass/Vol] 3.6 g/dL Normal [facility] Comment on above: Performed By: #### C MP ####[facility] V[address] [place], [place] [address]Dr. Soniya Chi Glucose [Mass/Vol] 101 mg/dL Normal 74-106 [facility] Comment on above: Performed By: #### C MP ####[facility] [address] [place], [place] [address]Dr. Soniya Chi Potassium [Moles/Vol] 3.8 mmol/L Normal 3.5-5.1 [facility] Comment on above: Performed By: #### C MP ####[facility] [address] [place], [place] [address]Dr. Soniya Chi Protein [Mass/Vol] 6.4 g/dL Normal 6.4-8.2 [facility] Comment on above: Performed By: #### C MP ####[facility] [address] [place], [place] [address]Dr. Soniya Chi Sodium [Moles/Vol] 147 mmol/L Critically high 136-145 T [facility] Comment on above: Performed By: #### C MP ####[facility] L[address]ior[address]ok[address] [place], [place] [address]Dr. Soniya Chi Urea nitrogen [Mass/Vol] 18.0 mg/dL Normal 7.0-18.0 [facility] Comment on above: Performed By: #### C MP ####[facility] [address] [place], [place] [address]Dr. Soniya Chi Urea nitrogen/Creatinine [Mass ratio] 14.9 mg/mg Normal [facility] Comment on above: Performed By: #### C MP ####[facility] [address] [place], [place] [address]Dr. Soniya Chi PROF CHEM 8 (BAS METB)on Anion gap [Moles/Vol] 9.9 mmol/L Normal [facility] Comment on above: Performed By: #### B MP ####[facility] Jrofaauvev[address] [place], [place] [address]Dr. Soniya Chi Calcium [Mass/Vol] 9.0 mg/dL Normal 8.5-10.1 [facility] Comment on above: Performed By: #### B MP ####[facility] Etaupvsijx[address] [place], [place] [address]Dr. Soniya Chi Chloride [Moles/Vol] 114 mmol/L Critically high 98-107 [facility] Comment on above: Performed By: #### B MP ####[facility] Qgbcdcrnqp73[address] [place], [place] [address]Dr. Soniya Chi CO2 [Moles/Vol] 28.0 mmol/L Normal 21.0-32.0 [facility] Comment on above: Performed By: #### B MP ####[facility] Xckqloxdze75[address] [place], [place] [address]Dr. Soniya Chi Creatinine [Mass/Vol] 1.37 mg/dL Critically high 0.55-1.02 [facility] Comment on above: Performed By: #### B MP ####[facility] Ybsnnyczew[address] [place], [place] [address]Dr. Soniya Chi EGFR-AF SRI LANKAN 47 mL/min/1.73m2 Critically low >=60 [facility] Comment on above: Performed By: #### B MP ####[facility] [address]zb[address] [place] [address]Dr. Soniya Chi EGFR-NON AF SRI LANKAN 38 mL/min/1.73m2 Critically low >=60 [facility] Comment on above: Performed By: #### B MP ####[facility] Rmorteiixn[address] [place] [address]Dr. Soniya Chi Glucose [Mass/Vol] 104 mg/dL Normal 74-106 [facility] Comment on above: Performed By: #### B MP ####[facility] Uvylfcsbgr[address] [place], [place] [address]Dr. Gypsyjuan Alon Potassium [Moles/Vol] 2.9 mmol/L Critically low 3.5-5.1 [facility] Comment on above: Performed By: #### B MP ####[facility] Iclimbcoxn6633[address] [place], [place] [address]Dr. Soniya Alon Sodium [Moles/Vol] 147 mmol/L Critically high 136-145 [facility] Comment on above: Performed By: #### B MP ####[facility] Njvzhhpqyc[address] [place], [place] [address]Dr. Soniya Alon Urea nitrogen [Mass/Vol] 18.0 mg/dL Normal 7.0-18.0 [facility] Comment on above: Performed By: #### B MP ####[facility] Obpcmuhyzx6216[address] [place], [place] [address]Dr. Gypsyjuan Alon Urea nitrogen/Creatinine [Mass ratio] 13.1 mg/mg Normal [facility] Comment on above: Performed By: #### B MP ####[facility] Flzuqhqlbb8[address] [place], [place] [address]Dr. Soniya Alon CBC AUTO DIFFon 05-29-2022 BASO # 0.0 103/ul Normal 0.0-0.1 [facility] Comment on above: Performed By: #### C BC ####[facility] [address]ptzmqp6[address] [place] [address]Dr. Soniya Chi Basophils/100 WBC (Bld) 0.2 % Normal 0.2-2.0 [facility] Comment on above: Performed By: #### C BC ####[facility] Cnnvuajxaz58[address] [place] [address]Dr. Soniya Chi EO # 0.0 103/ul Normal 0.0-0.7 [facility] Comment on above: Performed By: #### C BC ####[facility] Ebphpgheuw6424[address] [place], [place] [address]Dr. Soniya Chi Eosinophils/100 WBC (Bld) 0.5 % Critically low 0.9-7. 0 [facility] Comment on above: Performed By: #### C BC ####[facility] Xrftbseiyy309[address] [place], [place] [address]Dr. Soniya Chi Erythrocyte distribution wid th (RBC) [Ratio] 14.3 % Normal 11.0-15.0 [facility] Comment on above: Performed By: #### C BC ####[facility] Hipoghavvh0675[address] [place], [place] [address]Dr. Soniya Chi Hematocrit (Bld) [Volume fraction] 30.1 % Critically low 36.0-48.0 [facility] Comment on above: Performed By: #### C BC ####[facility] Hqpofszlzz[address] [place], [place] [address]Dr. Soniya Chi Hemoglobin (Bld) [Mass/Vol] 9.7 g/dL Critically low 12.0 -16.0 [facility] Comment on above: Performed By: #### C BC ####[facility] Zqsgcpgffu[address] [place], [place] [address]Dr. Soniya Chi IG # 0.02 10e3/ul Normal 0.00-0.03 [facility] Comment on above: Performed By: #### C BC ####[facility] Zegvhaztwu66[address] [place], [place] [address]Dr. Soniya Chi IG % 0.3 % Normal 0.0-0.5 [facility] Comment on above: Performed By: #### C BC ####[facility] Wkuodywgss8840 [place], [place] [address]We. Soniya Chi LYMPH # 0.9 103/ul Critically low 1.2-3.8 [facility] Comment on above: Performed By: #### C BC ####[facility] Cofkfrimae5890 [place], [place] [address]Bk. Soniya Chi Lymphocytes/100 WBC (Bld) 13.8 % Critically low 20.5-6 0.0 [facility] Comment on above: Performed By: #### C BC ####[facility] Qrzlgjvknq8552 [place] [address]Dr. Soniya Chi MANUAL DIFF REQ NO Normal [facility] Comment on above: Performed By: #### C BC ####[facility] Vigjekybfk[address] [place] [address]Dr. Soniya Chi MCH (RBC) [Entitic mass] 29.8 pg Normal 26.7-34.0 [facility] Comment on above: Performed By: #### C BC ####[facility] Vjkadzzwpv77[address] [place] [address]Dr. Soniya Chi MCHC (RBC) [Mass/Vol] 32.2 g/dL Normal 29.9-35.2 [facility] Comment on above: Performed By: #### C BC ####[facility] Whfcmweije4307 [place] [address]Dr. Soniya Chi MCV (RBC) [Entitic vol] 92.6 fL Normal 81.0-99.0 [facility] Comment on above: Performed By: #### C BC ####[facility] Qjerbjbeqg4170 [place] [address]Dr. Soniya Chi MONO # 0.7 103/ul Normal 0.3-0.8 [facility] Comment on above: Performed By: #### C BC ####[facility] Lzsffrpvob9[address] [place] [address]Dr. Soniya Chi Monocytes/100 WBC (Bld) 10.5 % Normal 1.7-12.0 [facility] Comment on above: Performed By: #### C BC ####[facility] Cgkfjiuamg6602 [place] [address]Dr. Soniya Chi NEUT # 4.8 103/ul Normal 1.4-6.5 [facility] Comment on above: Performed By: #### C BC ####[facility] Zfecgcarlt5878 [place] [address]Dr. Soniya Chi Neutrophils/100 WBC (Bld) 74.7 % Normal 43.0-75.0 [facility] Comment on above: Performed By: #### C BC ####[facility] Vjnmdiknmy5594 [place] [address]Dr. Soniya Chi Platelet mean volume (Bld) [ Entitic vol] 10.6 fL Normal 9.5-13.5 [facility] Comment on above: Performed By: #### C BC ####[facility] Jjcasiwfnc6[address] [place] [address]Dr. Soniya Chi PLT 114 103/ul Critically low 150-450 [facility] Comment on above: Performed By: #### C BC ####[facility] Bcvexsyuiw7[address] [place] [address]Dr. Soniya Chi RBC 3.25 106/ul Critically low 4.20-5.40 [facility] Comment on above: Performed By: #### C BC ####[facility] Wlserripaw[address] [place] [address]Dr. Soniya Chi WBC 6.4 103/ul Normal 4.0-11.0 [facility] Comment on above: Performed By: #### C BC ####[facility] Hmobtigbji[address] [place] [address]DrKarolina Soniya Chi CORTISOLon 05-29-2022 Cortisol 24.0 ug/dL Normal [facility] Comment on above: Result Comment: Javi isol AM 6.2 - 19.4 Cortisol PM 2.3 - 11.9 Performed By: #### C ORTISO ####[facility] Lujsreyjnw[address] [place], [place] [address]Dr. Soniya Chi CULTURE URINEon 05-29-2022 CULTURE URINE Normal [facility] Comment on above: Performed By: #### U RCX ####[facility] Qmixwdudle040[address] [place], [place] [address]Dr. Soniya Chi PROF CHEM 8 (BAS METB)on Anion gap [Moles/Vol] 11.9 mmol/L Normal [facility] Comment on above: Performed By: #### B MP ####[facility] Cpelqbqggf7[address] [place], [place] [address]Dr. Soniya Alon Calcium [Mass/Vol] 9.6 mg/dL Normal 8.5-10.1 [facility] Comment on above: Performed By: #### B MP ####[facility] Lrrrltzcdz33[address] [place], [place] [address]Dr. Soniya Alon Chloride [Moles/Vol] 110 mmol/L Critically high 98-107 [facility] Comment on above: Performed By: #### B MP ####[facility] Salbuotjcd27[address] [place], [place] [address]Dr. Soniya Alon CO2 [Moles/Vol] 25.4 mmol/L Normal 21.0-32.0 [facility] Comment on above: Performed By: #### B MP ####[facility] Hzoransezn2837[address] [place], [place] [address]Dr. Soniya Alon Creatinine [Mass/Vol] 1.24 mg/dL Critically high 0.55-1.02 [facility] Comment on above: Performed By: #### B MP ####[facility] Ppdpdvzoom209[address] [place], [place] [address]Dr. Soniya Chi EGFR-AF SRI LANKAN 52 mL/min/1.73m2 Critically low >=60 [facility] Comment on above: Performed By: #### B MP ####[facility] Tbrwjqrkvc[address] [place], [place] [address]Dr. Soniya Chi EGFR-NON AF SRI LANKAN 43 mL/min/1.73m2 Critically low >=60 [facility] Comment on above: Performed By: #### B MP ####[facility] Laomyslalt[address] [place] [address]Dr. Soniya Chi Glucose [Mass/Vol] 111 mg/dL Critically high 74-106 [facility] Comment on above: Performed By: #### B MP ####[facility] Scauncabib[address] [place] [address]Dr. Soniya Chi Potassium [Moles/Vol] 3.3 mmol/L Critically low 3.5-5.1 [facility] Comment on above: Performed By: #### B MP ####[facility] Bhytbyikfj[address] [place], [place] [address]Dr. Soniya Alon Sodium [Moles/Vol] 144 mmol/L Normal 136-145 [facility] Comment on above: Performed By: #### B MP ####[facility] Dfagikidhe819[address] [place], [place] [address]Dr. Soniya Alon Urea nitrogen [Mass/Vol] 17.0 mg/dL Normal 7.0-18.0 [facility] Comment on above: Performed By: #### B MP ####[facility] Acojynybrv[address] [place], [place] [address]Dr. Soniya Alon Urea nitrogen/Creatinine [Mass ratio] 13.7 mg/mg Normal [facility] Comment on above: Performed By: #### B MP ####[facility] Wbcneyvwdj090[address] [place], [place] [address]Dr. Soniya Alon CBC AUTO DIFFon 05-28-2022 BASO # 0.0 103/ul Normal 0.0-0.1 [facility] Comment on above: Performed By: #### C BC ####[facility] Euzmkgwcbv8[address] [place] [address]Dr. Gypsyjuan Chi Basophils/100 WBC (Bld) 0.2 % Normal 0.2-2.0 [facility] Comment on above: Performed By: #### C BC ####[facility] K[address]zofj[address] [place], [place] [address]Dr. Soniya Chi EO # 0.0 103/ul Normal 0.0-0.7 [facility] Comment on above: Performed By: #### C BC ####[facility] Xnctpikmhc7106 [place] [address]Dr. Soniya Chi Eosinophils/100 WBC (Bld) 0.3 % Critically low 0.9-7. 0 [facility] Comment on above: Performed By: #### C BC ####[facility] Bueflwliso[address] [place], [place] [address]Dr. Soniya Chi Erythrocyte distribution wid th (RBC) [Ratio] 14.4 % Normal 11.0-15.0 [facility] Comment on above: Performed By: #### C BC ####[facility] Fchrlkqoiw4518[address] [place], [place] [address]Dr. Soniya Chi Hematocrit (Bld) [Volume fraction] 30.3 % Critically low 36.0-48.0 [facility] Comment on above: Performed By: #### C BC ####[facility] Tzmpggljxb[address] [place], [place] [address]Dr. Soniya Chi Hemoglobin (Bld) [Mass/Vol] 9.9 g/dL Critically low 12.0 -16.0 [facility] Comment on above: Performed By: #### C BC ####[facility] Rxarknfufo350[address] [place], [place] [address]Dr. Soniya Chi IG # 0.02 10e3/ul Normal 0.00-0.03 [facility] Comment on above: Performed By: #### C BC ####[facility] Ilyxvlseyg332[address] [place], [place] [address]Dr. Soniya Chi IG % 0.3 % Normal 0.0-0.5 [facility] Comment on above: Performed By: #### C BC ####[facility] Iqunnhuipm824[address] [place], [place] [address]Dr. Soniya Chi LYMPH # 0.7 103/ul Critically low 1.2-3.8 [facility] Comment on above: Performed By: #### C BC ####[facility] Qeqttuocud9065[address] [place], [place] [address]Dr. Soniya Chi Lymphocytes/100 WBC (Bld) 11.7 % Critically low 20.5-6 0.0 [facility] Comment on above: Performed By: #### C BC ####[facility] Nldmaxmacj4[address] [place] [address]DrKarolina Chi MANUAL DIFF REQ NO Normal [facility] Comment on above: Performed By: #### C BC ####[facility] Zrryrxtxag0881 [place] [address]Dr. Soniya Chi MCH (RBC) [Entitic mass] 29.8 pg Normal 26.7-34.0 [facility] Comment on above: Performed By: #### C BC ####[facility] Fqfagmcntb9264 [place] [address]Dr. Soniya Chi MCHC (RBC) [Mass/Vol] 32.7 g/dL Normal 29.9-35.2 [facility] Comment on above: Performed By: #### C BC ####[facility] Mkqfxfjkde29[address] [place], [place] [address]DrKarolina Chi MCV (RBC) [Entitic vol] 91.3 fL Normal 81.0-99.0 [facility] Comment on above: Performed By: #### C BC ####[facility] Xzvtioyfyt990[address] [place], [place] [address]DrKarolina Chi MONO # 0.5 103/ul Normal 0.3-0.8 [facility] Comment on above: Performed By: #### C BC ####[facility] Remcvakipt[address] [place], [place] [address]Dr. Soniya Chi Monocytes/100 WBC (Bld) 8.3 % Normal 1.7-12.0 [facility] Comment on above: Performed By: #### C BC ####[facility] Qlwtearfdn[address] [place], [place] [address]DrKarolina Chi NEUT # 4.8 103/ul Normal 1.4-6.5 [facility] Comment on above: Performed By: #### C BC ####[facility] Kyqmnfxlpm[address] [place], [place] [address]DrKarolina Chi Neutrophils/100 WBC (Bld) 79.2 % Critically high 43.0- 75.0 [facility] Comment on above: Performed By: #### C BC ####[facility] Yfggekfhnw285[address] [place], [place] [address]DrKarolina Chi Platelet mean volume (Bld) [ Entitic vol] 10.4 fL Normal 9.5-13.5 [facility] Comment on above: Performed By: #### C BC ####[facility] Gtgroyqima827[address] [place], [place] [address]Dr. Soniya Chi PLT 112 103/ul Critically low 150-450 [facility] Comment on above: Performed By: #### C BC ####[facility] Nqdskglnkg9101[address] [place], [place] [address]Dr. Soniya Chi RBC 3.32 106/ul Critically low 4.20-5.40 [facility] Comment on above: Performed By: #### C BC ####[facility] Ypmuzvtkaq7[address] [place], [place] [address]Dr. Soniya Chi WBC 6.1 103/ul Normal 4.0-11.0 [facility] Comment on above: Performed By: #### C BC ####[facility] Dmkhfeogpq718[address] [place], [place] [address]Dr. Soniya Chi BASO # 0.0 103/ul Normal 0.0-0.1 [facility] Comment on above: Performed By: #### C BC ####[facility] Nbibgfljci267[address] [place], [place] [address]DrKarolina Chi Basophils/100 WBC (Bld) 0.2 % Normal 0.2-2.0 [facility] Comment on above: Performed By: #### C BC ####[facility] Frfxbhbovr749[address] [place], [place] [address]DrKarolina Chi EO # 0.1 103/ul Normal 0.0-0.7 [facility] Comment on above: Performed By: #### C BC ####[facility] Izuklcarou500[address] [place], [place] [address]DrKarolina Chi Eosinophils/100 WBC (Bld) 1.1 % Normal 0.9-7.0 [facility] Comment on above: Performed By: #### C BC ####[facility] Oeygmqnzcx306[address] [place], [place] [address]Dr. Soniya Chi Erythrocyte distribution wid th (RBC) [Ratio] 14.1 % Normal 11.0-15.0 [facility] Comment on above: Performed By: #### C BC ####[facility] Aejqobrznh[address] [place], [place] [address]Dr. Soniya Chi Hematocrit (Bld) [Volume fraction] 31.3 % Critically low 36.0-48.0 [facility] Comment on above: Performed By: #### C BC ####[facility] Hmrumzipfb390[address] [place], [place] [address]Dr. Soniya Chi Hemoglobin (Bld) [Mass/Vol] 10.5 g/dL Critically low 12.0 -16.0 [facility] Comment on above: Performed By: #### C BC ####[facility] Qeqwkemijx253[address] [place], [place] [address]Dr. Soniya Chi IG # 0.02 10e3/ul Normal 0.00-0.03 [facility] Comment on above: Performed By: #### C BC ####[facility] Rjnbhuzjsa34[address] [place], [place] [address]Dr. Soniya Chi IG % 0.3 % Normal 0.0-0.5 [facility] Comment on above: Performed By: #### C BC ####[facility] Tmdywcttdh219[address] [place], [place] [address]Dr. Soniya Chi LYMPH # 0.8 103/ul Critically low 1.2-3.8 [facility] Comment on above: Performed By: #### C BC ####[facility] Vttchsjbpt95[address] [place], [place] [address]Dr. Soniya Chi Lymphocytes/100 WBC (Bld) 13.4 % Critically low 20.5-6 0.0 [facility] Comment on above: Performed By: #### C BC ####[facility] Zrohudfurr9[address] [place] [address]Dr. Soniya Alon MANUAL DIFF REQ NO Normal [facility] Comment on above: Performed By: #### C BC ####[facility] Qqkirjvfeg0873 [place] [address]Dr. Soniya Chi MCH (RBC) [Entitic mass] 30.1 pg Normal 26.7-34.0 [facility] Comment on above: Performed By: #### C BC ####[facility] Gjnjdrindf187[address] [place], [place] [address]Dr. Soniya Alon MCHC (RBC) [Mass/Vol] 33.5 g/dL Normal 29.9-35.2 [facility] Comment on above: Performed By: #### C BC ####[facility] Eeiozrtxof94[address] [place] [address]Dr. Gypsyjuan Chi MCV (RBC) [Entitic vol] 89.7 fL Normal 81.0-99.0 [facility] Comment on above: Performed By: #### C BC ####[facility] Mkcjgxbvku[address] [place], [place] [address]Dr. Gypsyjuan Chi MONO # 0.6 103/ul Normal 0.3-0.8 [facility] Comment on above: Performed By: #### C BC ####[facility] Xzvipjrfjn36[address] [place], [place] [address]Dr. Gypsyjuan Chi Monocytes/100 WBC (Bld) 9.8 % Normal 1.7-12.0 [facility] Comment on above: Performed By: #### C BC ####[facility] Azhgqdldln2316[address] [place], [place] [address]Dr. Soniya Chi NEUT # 4.6 103/ul Normal 1.4-6.5 [facility] Comment on above: Performed By: #### C BC ####[facility] Rpgvdwqsun23[address] [place], [place] [address]Dr. Soniya Chi Neutrophils/100 WBC (Bld) 75.2 % Critically high 43.0- 75.0 [facility] Comment on above: Performed By: #### C BC ####[facility] Rzpbcovarp13[address] [place] [address]Dr. Soniya Chi Platelet mean volume (Bld) [ Entitic vol] 10.6 fL Normal 9.5-13.5 [facility]ital Comment on above: Performed By: #### C BC ####[facility] Arjtftjgvm[address] [place] [address]Dr. Soniya Chi PLT 128 103/ul Critically low 150-450 [facility] Comment on above: Performed By: #### C BC ####[facility] Efjziibane7254 [place] [address]Dr. Soniya Chi RBC 3.49 106/ul Critically low 4.20-5.40 [facility] Comment on above: Performed By: #### C BC ####[facility] Wacljttjod3696 [place] [address]Dr. Soniya Chi WBC 6.1 103/ul Normal 4.0-11.0 [facility] Comment on above: Performed By: #### C BC ####[facility] Rzgaqfpfch[address] [place], [place] [address]Dr. Soniya Chi FREE T4on 05-28-2022 Free T4 [Mass/Vol] 0.93 ng/dL Normal 0.76-1.46 [facility] Comment on above: Performed By: #### B 12FOL, FT4, FETIBC ####[facility] Amulzeflyp[address] [place] [address]Dr. Soniya Chi IRON AND TIBCon 05-28-2022 % SATURATION 32.6 % Normal [facility] Comment on above: Performed By: #### B 12FOL, FT4, FETIBC ####[facility] Foafyclyvq3[address] [place] [address]Dr. Soniya Chi Iron [Mass/Vol] 94.0 ug/dL Normal 50.0-170.0 [facility] Comment on above: Performed By: #### B 12FOL, FT4, FETIBC ####[facility] Zxrpndqwpk4[address] [place] [address]Dr. Soniya Chi TIBC DIRECT 288.0 ug/dL Normal 250.0-450.0 [facility] Comment on above: Performed By: #### B 12FOL, FT4, FETIBC ####[facility] Qqwpjoelkd9[address] [place] [address]Dr. Soniya Chi POINT OF CARE GLUCOSEon 12-2 Glucose [Mass/Vol] 123 mg/dL Critically high 74-106 [facility] Comment on above: Performed By: #### P OCGLUC ####[facility] Rccrtavzxk9[address] [place] [address]Dr. Soniya Chi PROF CHEM 8 (BAS METB)on Anion gap [Moles/Vol] 11.2 mmol/L Normal [facility] Comment on above: Performed By: #### B MP ####[facility] Evxgzifpfv83[address] [place] [address]Dr. Soniya Chi Calcium [Mass/Vol] 9.0 mg/dL Normal 8.5-10.1 [facility] Comment on above: Performed By: #### B MP ####[facility] Fbtcgbhszr[address] [place], [place] [address]Dr. Soniya Chi Chloride [Moles/Vol] 108 mmol/L Critically high 98-107 [facility] Comment on above: Performed By: #### B MP ####[facility] Ldrcdxkomk[address] [place], [place] [address]Dr. Soniya Chi CO2 [Moles/Vol] 26.4 mmol/L Normal 21.0-32.0 [facility] Comment on above: Performed By: #### B MP ####[facility] [address]cjchas[address] [place], [place] [address]Dr. Soniya Chi Creatinine [Mass/Vol] 1.30 mg/dL Critically high 0.55-1.02 [facility] Comment on above: Performed By: #### B MP ####[facility] Gemmuyzalf[address] [place] [address]Dr. Soniya Chi EGFR-AF SRI LANKAN 50 mL/min/1.73m2 Critically low >=60 [facility] Comment on above: Performed By: #### B MP ####[facility] [address]wdlhyimc[address] [place] [address]Dr. Soniya Chi EGFR-NON AF SRI LANKAN 41 mL/min/1.73m2 Critically low >=60 [facility] Comment on above: Performed By: #### B MP ####[facility] Jmrcppawbl[address] [place] [address]Dr. Gypsyjuan Chi Glucose [Mass/Vol] 115 mg/dL Critically high 74-106 T [facility] Comment on above: Performed By: #### B MP ####[facility] Cjitsdohyr[address] [place] [address]Dr. Soniya Chi Potassium [Moles/Vol] 3.6 mmol/L Normal 3.5-5.1 [facility] Comment on above: Performed By: #### B MP ####[facility] Detrfvmzob[address] [place], [place] [address]Dr. Soniya Chi Sodium [Moles/Vol] 142 mmol/L Normal 136-145 [facility] Comment on above: Performed By: #### B MP ####[facility] Yqrnxudwfb[address] [place] [address]Dr. Soniya Alon Urea nitrogen [Mass/Vol] 20.0 mg/dL Critically high 7.0-18 .0 [facility] Comment on above: Performed By: #### B MP ####[facility] Ovzvesfpbk[address] [place], [place] [address]Dr. Soniya Chi Urea nitrogen/Creatinine [Mass ratio] 15.4 mg/mg Normal [facility] Comment on above: Performed By: #### B MP ####[facility] Pzygkktggu[address] [place] [address]Dr. Gypsyjuan Chi Anion gap [Moles/Vol] 12.7 mmol/L Normal [facility] Comment on above: Performed By: #### B MP ####[facility] Lttsdbnama[address] [place], [place] [address]Dr. Soniya Chi Calcium [Mass/Vol] 9.1 mg/dL Normal 8.5-10.1 [facility] Comment on above: Performed By: #### B MP ####[facility] Hyviguerpd[address] [place] [address]Dr. Soniya Chi Chloride [Moles/Vol] 107 mmol/L Normal 98-107 [facility] Comment on above: Performed By: #### B MP ####[facility] Wmphjxnhvl[address] [place] [address]Dr. Soniya Chi CO2 [Moles/Vol] 27.7 mmol/L Normal 21.0-32.0 [facility] Comment on above: Performed By: #### B MP ####[facility] F[address]vqspjd[address] [place], [place] [address]Dr. Soniya Chi Creatinine [Mass/Vol] 1.25 mg/dL Critically high 0.55-1.02 [facility] Comment on above: Performed By: #### B MP ####[facility] Ctrkranqez[address] [place], [place] [address]Dr. Soniya Alon EGFR-AF SRI LANKAN 52 mL/min/1.73m2 Critically low >=60 [facility] Comment on above: Performed By: #### B MP ####[facility] W[address]mfmmozjr[address] [place], [place] [address]Dr. Soniya Alon EGFR-NON AF SRI LANKAN 43 mL/min/1.73m2 Critically low >=60 [facility] Comment on above: Performed By: #### B MP ####[facility] Rwtrwyrrlu[address] [place], [place] [address]Dr. Soniya Chi Glucose [Mass/Vol] 77 mg/dL Normal 74-106 [facility] Comment on above: Performed By: #### B MP ####[facility] Emoqsqxdns[address] [place], [place] [address]Dr. Soniya Chi Potassium [Moles/Vol] 3.4 mmol/L Critically low 3.5-5.1 [facility] Comment on above: Performed By: #### B MP ####[facility] Aoacbwndjk[address] [place], [place] [address]Dr. Gypsyjuan Chi Sodium [Moles/Vol] 144 mmol/L Normal 136-145 [facility] Comment on above: Performed By: #### B MP ####[facility] Esaitxxege[address] [place] [address]Dr. Soniya Chi Urea nitrogen [Mass/Vol] 21.0 mg/dL Critically high 7.0-18 .0 [facility] Comment on above: Performed By: #### B MP ####[facility] [address]pxhzyszul[address] [place], [place] [address]Dr. Soniya Chi Urea nitrogen/Creatinine [Mass ratio] 16.8 mg/mg Normal [facility] Comment on above: Performed By: #### B MP ####[facility] Cnshayaovy[address] [place], [place] [address]Dr. Soniya Chi VIT B12 AND FOLATEon 022 Cobalamin (Vitamin B12) [Mass/Vol] 500.0 pg/mL Normal 193.0-986.0 [facility] Comment on above: Performed By: #### B 12FOL, FT4, FETIBC ####[facility] Eebqapwmpn[address] [place], [place] [address]Dr. Soniya Chi FOLATE 10.30 ng/mL Normal 8.60-58.90 [facility] Comment on above: Performed By: #### B 12FOL, FT4, FETIBC ####[facility] Sflqoqwrgr[address] [place], [place] [address]Dr. Soniya Chi AMMONIAon 05-27-2022 Ammonia (P) [Moles/Vol] 15 umol/L Normal 11-32 [facility] Comment on above: Performed By: #### A MM ####[facility] Jfdpdscevf[address] [place], [place] [address]Dr. Soniya Chi CBC AUTO DIFFon 05-27-2022 BASO # 0.0 103/ul Normal 0.0-0.1 [facility] Comment on above: Performed By: #### C BC ####[facility] Azwdmcxwqg[address] [place], [place] [address]Dr. Soniya Chi Basophils/100 WBC (Bld) 0.4 % Normal 0.2-2.0 [facility] Comment on above: Performed By: #### C BC ####[facility] O[address]ubgowwf[address] [place] [address]Dr. Soniya Chi EO # 0.1 103/ul Normal 0.0-0.7 [facility] Comment on above: Performed By: #### C BC ####[facility] Tthjmmajsa[address] [place] [address]Dr. Soniya Chi Eosinophils/100 WBC (Bld) 1.5 % Normal 0.9-7.0 [facility] Comment on above: Performed By: #### C BC ####[facility] Eyxjcnoupv[address] [place], [place] [address]Dr. Soniya Chi Erythrocyte distribution wid th (RBC) [Ratio] 14.2 % Normal 11.0-15.0 [facility] Comment on above: Performed By: #### C BC ####[facility] Selburcrsh[address] [place], [place] [address]Dr. Soniya Chi Hematocrit (Bld) [Volume fraction] 36.0 % Normal 3 6.0-48.0 [facility] Comment on above: Performed By: #### C BC ####[facility] Jzdidnqxty[address] [place], [place] [address]Dr. Soniya Chi Hemoglobin (Bld) [Mass/Vol] 11.9 g/dL Critically low 12.0 -16.0 [facility] Comment on above: Performed By: #### C BC ####[facility] Jhkefnqyrx[address] [place], [place] [address]Dr. oSniya Chi IG # 0.02 10e3/ul Normal 0.00-0.03 [facility] Comment on above: Performed By: #### C BC ####[facility] Zklwnfnbhf[address] [place], [place] [address]Dr. Soniya Chi IG % 0.4 % Normal 0.0-0.5 [facility] Comment on above: Performed By: #### C BC ####[facility] Bfgjpesaam[address] [place], [place] [address]Dr. Gypsyjuan Chi LYMPH # 1.0 103/ul Critically low 1.2-3.8 [facility] Comment on above: Performed By: #### C BC ####[facility] [address]xvska[address] [place] [address]Dr. Soniya Chi Lymphocytes/100 WBC (Bld) 18.1 % Critically low 20.5-6 0.0 [facility] Comment on above: Performed By: #### C BC ####[facility] R[address]xaawqvu[address] [place] [address]Dr. Soniya Chi MANUAL DIFF REQ NO Normal [facility] Comment on above: Performed By: #### C BC ####[facility] S[address]neezusl[address] [place] [address]Dr. Soniya Chi MCH (RBC) [Entitic mass] 29.9 pg Normal 26.7-34.0 [facility] Comment on above: Performed By: #### C BC ####[facility] Rq[address]pvaveh[address] [place] [address]Dr. Soniya Chi MCHC (RBC) [Mass/Vol] 33.1 g/dL Normal 29.9-35.2 [facility] Comment on above: Performed By: #### C BC ####[facility] H[address]jwsqzu[address] [place] [address]Dr. Soniya Chi MCV (RBC) [Entitic vol] 90.5 fL Normal 81.0-99.0 [facility] Comment on above: Performed By: #### C BC ####[facility] [address]hgwya[address] [place] [address]Dr. Soniya Chi MONO # 0.3 103/ul Normal 0.3-0.8 [facility] Comment on above: Performed By: #### C BC ####[facility] Qxkbpldxbe85[address] [place] [address]Dr. Soniya Chi Monocytes/100 WBC (Bld) 5.4 % Normal 1.7-12.0 [facility] Comment on above: Performed By: #### C BC ####[facility] L[address]utfornn[address] [place] [address]Dr. Soniya Chi NEUT # 4.0 103/ul Normal 1.4-6.5 [facility] Comment on above: Performed By: #### C BC ####[facility] Tz[address]bsbgj[address] [place] [address]Dr. Soniya Chi Neutrophils/100 WBC (Bld) 74.2 % Normal 43.0-75.0 [facility] Comment on above: Performed By: #### C BC ####[facility] Qvaneqfqob[address] [place] [address]Dr. Soniya Chi Platelet mean volume (Bld) [ Entitic vol] 10.0 fL Normal 9.5-13.5 [facility] Comment on above: Performed By: #### C BC ####[facility] Y[address]xlijfjp[address] [place], [place] [address]Dr. Soniya Chi PLT 140 103/ul Critically low 150-450 [facility] Comment on above: Performed By: #### C BC ####[facility] Sxibsphaqu4[address] [place] [address]Dr. Soniya Chi RBC 3.98 106/ul Critically low 4.20-5.40 [facility] Comment on above: Performed By: #### C BC ####[facility] Yjuplisyqn[address] [place], [place] [address]Dr. Soniya Chi WBC 5.4 103/ul Normal 4.0-11.0 The [facility] Comment on above: Performed By: #### C BC ####[facility] Bdzwffejmj[address] [place], [place] [address]Dr. Soniya Alon CT STROKE HEAD WOon 05-27-[address] STROKE HEAD WO Normal [facility] CTA HEAD WO W CONon 05-27-20 22 CTA HEAD WO W CON Normal [facility] CULTURE BLOODon 05-27-2022 Microscopic examination of blood, culture Culture Observations: NO GROWTH AT 5 DAYS. Normal The [facility] al Comment on above: Performed By: #### B LDCX2 ####[facility] L[address]fpvu[address]me[address] [place], [place] [address]Dr. Soniya Alon Microscopic examination of blood, culture Culture Observations: NO GROWTH AT 5 DAYS. Normal [facility] Comment on above: Performed By: #### B LDCX1 ####[facility] [address]buoulb[address] [place] [address]Dr. Soniya Chi Covid-19 PCR (CVDTB)on 05-03 SARS-CoV-2 (COVID-19) RNA DORIAN+probe Ql (Unsp spec) Not detected Normal NOT DETECTED [facility] Comment on above: Result Comment: When diagnostic testing is negative, the possibility of a false negative should be considered inthe context of a patient's recent exposures and the presence of clinical signs and symptomsconsistent with SARS-CoV-2.This test is not yet approved or cleared by the [place] FDA. When there are no FDA-approved or cleared tests available, and other criteria are met, FDA can make tests available under an emergency access mechanism called an Emergency Use Authorization (EUA). The EUA for this test is supported by the [employer] of Health and Human Service's declaration that circumstances exist to justify the emergency use of in vitro diagnostics for the detection and/or diagnosis of the virus that causes COVID-19. This EUA will remain in effect for the duration of the COVID-19 declaration justifying emergency of IVDs, unless it is terminated or revoked by the FDA (after which the test may no longer be used). Performed By: #### C VDTBH ####[facility] [address]qydtege[address] [place] [address]Dr. Soniya Chi ER URINE PROFILEon Bilirubin Ql (U) Negative Normal NEGATIVE [facility] Comment on above: Performed By: #### MARCOS WELDON ####[facility] Kguzsjkmgh[address] [place] [address]Dr. Soniya Chi Clarity (U) CLEAR Normal CLEAR [facility] Comment on above: Performed By: #### MARCOS WELDON ####[facility] Cyqfkpzyiq[address] [place] [address]Dr. Soniya Chi Color (U) LT. YELLOW Normal YELLOW [facility] Comment on above: Performed By: #### MARCOS WELDON ####[facility] Zdfurvrzhv[address] [place] [address]Dr. Soniya GAD A micrscopic examina tion will be performed if indicated. Normal [facility] l Comment on above: Performed By: #### MARCOS WELDON ####[facility] Xhpywxikdl15[address] [place] [address]Dr. Soniya Chi Glucose Ql (U) Negative Normal NEGATIVE [facility] Comment on above: Performed By: #### MARCOS WELDON ####[facility] Xdmhzuttmg[address] [place] [address]Dr. Soniya Chi Hemoglobin Ql (U) Negative Normal NEGATIVE [facility] Comment on above: Performed By: #### MARCOS WELDON ####[facility] Ebjmqecqsu[address] [place] [address]Dr. Soniya Chi Ketones Ql (U) Negative Normal NEGATIVE [facility] Comment on above: Performed By: #### MARCOS WELDON ####[facility] Yudwtumyoc[address] [place], [place] [address]Dr. Soniya Chi LEUKOCYTES SMALL Abnormal NEGATIVE [facility] Comment on above: Performed By: #### MARCOS WELDON ####[facility] Khldjfhaiv[address] [place], [place] [address]Dr. Soniya Chi Nitrite Ql (U) Negative Normal NEGATIVE [facility] Comment on above: Performed By: #### MARCOS WELDON ####[facility] Htgnmowylp[address] [place] [address]Dr. Soniya Chi pH (U) 6.0 [pH] Normal 5-9 [facility] Comment on above: Performed By: #### MARCOS WELDON ####[facility] Pspuhbrwks[address] [place] [address]Dr. Soniya Chi SPEC GRAVITY 1.020 Normal 1.005-<=1.025 The [facility] Comment on above: Performed By: #### MARCOS WELDON ####[facility] Csaqrelfmg[address] [place] [address]Dr. Soniya Chi UA PROTEIN Negative Normal NEGATIVE/ TRACE The [facility] Comment on above: Performed By: #### E RAUL UMICRO ####[facility] Tqgrfnutdq[address] [place], [place] [address]Dr. Soniya Chi UR MICRO IND INDICATED Normal [facility] Comment on above: Performed By: #### E RAUL UMICRO ####[facility] Zydyyunmqx[address] [place], [place] [address]Dr. Soniya Chi Urobilinogen Qn (U) 0.2 {Casimiro'U}/dL Normal 0.2 - 1. 0 [facility] Comment on above: Performed By: #### E RAUL UMICRO ####[facility] Epcutemumz[address] [place], [place] [address]Dr. Soniya Chi FREE T3on 05-27-2022 FREE T3 2.63 pg/mlL Normal 2.18-3.98 [facility] Comment on above: Performed By: #### F T3, TSH ####[facility] Tpuxdzkbel[address] [place], [place] [address]Dr. Soniya Chi INFLUENZA A AND B AGon 05-27 INFLUANEGH SEE BELOW Normal [facility] Comment on above: Result Comment: Nega tive for Flu A protein angiten. Infection due to Flu A cannot be ruled out. Flu A angiten in the sample may be below the detection limit of the test. Performed By: #### I NFLUAB ####[facility] Gffvzygxlh[address] [place], [place] [address]Dr. Soniya Chi INFLUBNEGH SEE BELOW Normal [facility] Comment on above: Result Comment: Nega tive for Flu B protein antigen. Infection due to Flu B cannot be ruled out. Flu B antigen in the sample may be below the detection limit of the test. Performed By: #### I NFLUAB ####[facility] Urrtgffpyr[address] [place], [place] [address]Dr. Soniya Chi INFLUENZA A AG Negative Normal NEGATIVE SEE COMMENT [facility] Comment on above: Performed By: #### I NFLUAB ####[facility] Nepkpqbgms39[address] [place] [address]Dr. Soniya Chi INFLUENZA B AG Negative Normal NEGATIVE SEE COMMENT [facility] Comment on above: Performed By: #### I NFLUAB ####[facility] Ddjhzaoykj[address] [place], [place] [address]Dr. Gypsyjuan Chi INTERNAL CONTROLS Within Normal Limits Normal Wi thin Normal Limits [facility] Comment on above: Performed By: #### I NFLUAB ####[facility] Lspuolmoxf[address] [place], [place] [address]Dr. Soniya Chi LACTATE/LACTIC ACIDon 2021 Lactate [Moles/Vol] 1.2 mmol/L Normal 0.4-1.[address] [facility] Comment on above: Performed By: #### L ACT ####[facility] Jmoaztfvlm[address] [place], [place] [address]Dr. Soniya Chi POINT OF CARE GLUCOSEon 05-03 Glucose [Mass/Vol] 89 mg/dL Normal 74-106 [facility] Comment on above: Performed By: #### P OCGLUC ####[facility] Hocrcjcwyu[address] [place], [place] [address]Dr. Soniya Chi Glucose [Mass/Vol] 89 mg/dL Normal 74-106 [facility] Comment on above: Performed By: #### P OCGLUC ####[facility] Tibnybgvlm[address] [place], [place] [address]Dr. Soniya Chi PROF 14(COMP METB)on 022 Albumin [Mass/Vol] 3.7 g/dL Normal 3.4-5.0 [facility] Comment on above: Performed By: #### C MP ####[facility] [address]jjanbecq[address] [place] [address]Dr. Soniya Chi Albumin/Globulin [Mass ratio] 0.9 {ratio} Normal [facility] Comment on above: Performed By: #### C MP ####[facility] Unapyljnjt[address] [place] [address]Dr. Soniya Chi ALP [Catalytic activity/Vol] 92 U/L Normal 46-116 [facility] Comment on above: Performed By: #### C MP ####[facility] Mves[address]juxmo7039 [place], [place] [address]Bx. Soniya Chi ALT [Catalytic activity/Vol] 34 U/L Normal 14-59 [facility] Comment on above: Performed By: #### C MP ####[facility] Qjnwhiyzjh7211 [place], [place] [address]Pj. Soniya Chi Anion gap [Moles/Vol] 11.0 mmol/L Normal [facility] Comment on above: Performed By: #### C MP ####[facility] Xiq[address]zfcjw[address] [place] [address]Dr. Soniya Chi AST [Catalytic activity/Vol] 19 U/L Normal 15-37 [facility] Comment on above: Performed By: #### C MP ####[facility] Xknrugkagh[address] [place] [address]Dr. Soniya Chi Bilirubin [Mass/Vol] 1.0 mg/dL Normal 0.2-1.0 [facility] Comment on above: Performed By: #### C MP ####[facility] Dkwhdoemjy[address] [place] [address]Dr. Soniya Chi Calcium [Mass/Vol] 10.2 mg/dL Critically high 8.5-10.1 [facility] Comment on above: Performed By: #### C MP ####[facility] Fdoeoefhmg[address] [place] [address]Dr. Soniya Chi Chloride [Moles/Vol] 103 mmol/L Normal 98-107 [facility] Comment on above: Performed By: #### C MP ####[facility] Pmqdkxhmkm98[address] [place] [address]Dr. Soniya Chi CO2 [Moles/Vol] 31.6 mmol/L Normal 21.0-32.0 [facility] Comment on above: Performed By: #### C MP ####[facility] Q[address]zfped[address] [place] [address]Dr. Soniya Chi Creatinine [Mass/Vol] 1.15 mg/dL Critically high 0.55-1.02 [facility] Comment on above: Performed By: #### C MP ####[facility] Feleowqnko[address] [place] [address]Dr. Soniya Chi EGFR-AF SRI LANKAN 57 mL/min/1.73m2 Critically low >=60 [facility] Comment on above: Performed By: #### C MP ####[facility] Swigukeaob[address] [place] [address]Dr. Soniya Chi EGFR-NON AF SRI LANKAN 47 mL/min/1.73m2 Critically low >=60 [facility] Comment on above: Performed By: #### C MP ####[facility] [address]yfueyrmu[address] [place] [address]Dr. Soniya Chi Globulin (S) [Mass/Vol] 4.0 g/dL Normal T [facility] Comment on above: Performed By: #### C MP ####[facility] Jqztumuixk[address] [place] [address]Dr. Soniya Chi Glucose [Mass/Vol] 82 mg/dL Normal 74-106 [facility] Comment on above: Performed By: #### C MP ####[facility] Qxichctwzc75[address] [place] [address]Dr. Soniya Chi Potassium [Moles/Vol] 3.6 mmol/L Normal 3.5-5.1 [facility] Comment on above: Performed By: #### C MP ####[facility] Cbdihziqtb[address] [place] [address]Dr. Soniya Chi Protein [Mass/Vol] 7.7 g/dL Normal 6.4-8.2 [facility] Comment on above: Performed By: #### C MP ####[facility] Tgokosokvd[address] [place] [address]Dr. Soniya Chi Sodium [Moles/Vol] 142 mmol/L Normal 136-145 [facility] Comment on above: Performed By: #### C MP ####[facility] Mrzdgkvwxy87[address] [place] [address]Dr. Soniya Chi Urea nitrogen [Mass/Vol] 31.0 mg/dL Critically high 7.0-18 .0 [facility] Comment on above: Performed By: #### C MP ####[facility] Ufsixxrltt6[address] [place] [address]Dr. Soniya Chi Urea nitrogen/Creatinine [Mass ratio] 27.0 mg/mg Normal [facility] Comment on above: Performed By: #### C MP ####[facility] Yaxplwzvpn[address] [place] [address]Dr. Soniya Chi TSHon 05-27-2022 TSH 8.165 uIU/mL Critically high 0.358-3.740 [facility] Comment on above: Performed By: #### F T3, TSH ####[facility] Ruzugtdbia[address] [place] [address]Dr. Soniya Chi URINE MICROSCOPIC ONLYon BACTERIA TRACE Abnormal NONE SEEN [facility] Comment on above: Performed By: #### Benoit CARTER UMICRO ####[facility] [address]ts[address] [place], [place] [address]Dr. Gypsyjuan Alon Bacteria identified Cx Nom (U) INDICATED Normal [facility] Comment on above: Performed By: #### Benoit CARTER UMICRO ####[facility] E[address]clmlfje[address] [place], [place] [address]Dr. Soniya Alon CAST NONE SEEN Normal NONE SEEN [facility] ostal Comment on above: Performed By: #### Benoit CARTER UMICRO ####[facility] Awlinplriz[address] [place], [place] [address]Dr. Soniya Chi Crystals LM Nom (Urine sed) NONE SEEN Normal NONE SEE N [facility] Comment on above: Performed By: #### Benoit CARTER UMICRO ####[facility] Hs[address]peps[address] [place], [place] [address]Dr. Soniya Chi Epithelial cells LM Ql (Urine sed) FEW Abnormal N ONE SEEN /RARE [facility] Comment on above: Performed By: #### Benoit CARTER UMICRO ####[facility] Urrqwkrjuz[address] [place], [place] [address]Dr. Gypsylan Chi MUCOUS NONE SEEN Normal NONE SEEN [facility] Comment on above: Performed By: #### E RUR, UMICRO ####[facility] Ye[address] [place], [place] [address]Gv. Soniya Chi RBC NONE SEEN Abnormal 0-2 [facility] Comment on above: Performed By: #### MARCOS WELDON ####[facility] Qfddapxpsm1752 [place], [place] [address]Wx. Soniya Chi WBC 2-5 Abnormal NONE SEEN [facility] Comment on above: Performed By: #### MARCOS WELDON ####[facility] Omcqaborge[address] [place], [place] [address]Dj. Soniya Chi XR CHEST 1 Von 05-27-2022 XR CHEST 1 V Normal [facility] Cov[facility] PCR [facility]on SARS-CoV-2 (COVID-19) RNA DORIAN+probe Ql (Unsp spec) Not detected Normal NOT DETECTED The [facility] Comment on above: Result Comment: This test is not yet approved or cleared by the [place] FDA. When there are no FDA-approved or cleared tests available, and other criteria are met, FDA can make tests available under an emergency access mechanism called an Emergency Use Authorization (EUA). The EUA for this test is supported by the [place] of Health and Human Service's (HHS's) declaration that circumstances exist to justify the emergency use of in vitro diagnostics for the detection and/or diagnosis of the virus that causes COVID-19. This EUA will remain in effect (meaning this test can be used) for the duration of the COVID-19 declaration justifying emergency of IVDs, unless it is terminated or revoked by FDA (after which the test may no longer be used).When diagnostic testing is negative, the possibility of a false negative should be considered inthe context of a patient's recent exposures and the presence of clinical signs and symptomsconsistent with SARS-CoV-2. Performed By: #### C VDTB ####[facility] Edavqofxrq[address] [place], [place] [address]Ac. Soniya Chi CBC AUTO DIFFon 04-23-2022 BASO # 0.0 103/ul Normal 0.0-0.1 [facility] Comment on above: Performed By: #### C BC ####[facility] [address] [place] [address]Dr. Soniya Chi Basophils/100 WBC (Bld) 0.4 % Normal 0.2-2.0 [facility] Comment on above: Performed By: #### C BC ####[facility] [address] [place], [place] [address]Dr. Soniya Chi EO # 0.1 103/ul Normal 0.0-0.7 [facility] Comment on above: Performed By: #### C BC ####[facility] Pznpqeqgpr[address] [place], [place] [address]Dr. Soniya Chi Eosinophils/100 WBC (Bld) 1.9 % Normal 0.9-7.0 [facility] Comment on above: Performed By: #### C BC ####[facility] Xclihhtk[address] [place], [place] [address]Dr. Soniya Chi Erythrocyte distribution wid th (RBC) [Ratio] 13.4 % Normal 11.0-15.0 [facility] Comment on above: Performed By: #### C BC ####[facility] Y[address]ufxc[address] [place], [place] [address]Dr. Soniya Chi Hematocrit (Bld) [Volume fraction] 37.0 % Normal 3 6.0-48.0 [facility] Comment on above: Performed By: #### C BC ####[facility] Pkioganofg[address] [place], [place] [address]Dr. Soniya Chi Hemoglobin (Bld) [Mass/Vol] 12.1 g/dL Normal 12.0-16. 0 [facility] Comment on above: Performed By: #### C BC ####[facility] Eyfjercblu[address] [place], [place] [address]Dr. Soniya Chi IG # 0.01 10e3/ul Normal 0.00-0.03 [facility] Comment on above: Performed By: #### C BC ####[facility] Fnhcrcwyti[address] [place], [place] [address]Dr. Soniya Chi IG % 0.2 % Normal 0.0-0.5 [facility] ostal Comment on above: Performed By: #### C BC ####[facility] [address]akerk[address] [place] [address]Dr. Soniya Chi LYMPH # 1.8 103/ul Normal 1.2-3.8 [facility] Comment on above: Performed By: #### C BC ####[facility] Bpztvwmkyz[address] [place] [address]Dr. Soniya Chi Lymphocytes/100 WBC (Bld) 30.9 % Normal 20.5-60.0 [facility] Comment on above: Performed By: #### C BC ####[facility] Zhcrklocpy[address] [place] [address]Dr. Soniya Chi MANUAL DIFF REQ NO Normal [facility] Comment on above: Performed By: #### C BC ####[facility] Jptpxdob[address] [place], [place] [address]Dr. Soniya Chi MCH (RBC) [Entitic mass] 29.7 pg Normal 26.7-34.0 [facility] Comment on above: Performed By: #### C BC ####[facility] Fyxfbfvtmy[address] [place], [place] [address]Dr. Soniya Chi MCHC (RBC) [Mass/Vol] 32.7 g/dL Normal 29.9-35.2 [facility] Comment on above: Performed By: #### C BC ####[facility] Kgoxlnuuou[address] [place] [address]Dr. Soniya Chi MCV (RBC) [Entitic vol] 90.7 fL Normal 81.0-99.0 [facility] Comment on above: Performed By: #### C BC ####[facility] Hlrt[address]chad[address] [place], [place] [address]Dr. Soniya Chi MONO # 0.4 103/ul Normal 0.3-0.8 [facility] Comment on above: Performed By: #### C BC ####[facility] Gspervwctx[address] [place] [address]Dr. Soniya Chi Monocytes/100 WBC (Bld) 6.5 % Normal 1.7-12.0 [facility] Comment on above: Performed By: #### C BC ####[facility] R[address]flmnsqe[address] [place] [address]Dr. Soniya Chi NEUT # 3.4 103/ul Normal 1.4-6.5 [facility] Comment on above: Performed By: #### C BC ####[facility] Vve[address]ffmcr[address] [place], [place] [address]DrKaroilna Gypsyjuan Chi Neutrophils/100 WBC (Bld) 60.1 % Normal 43.0-75.0 [facility] Comment on above: Performed By: #### C BC ####[facility] Gb[address]isl[address] [place], [place] [address]Dr. Soniya Chi Platelet mean volume (Bld) [ Entitic vol] 10.0 fL Normal 9.5-13.5 [facility] pital Comment on above: Performed By: #### C BC ####[facility] B[address]duptrkw[address] [place], [place] [address]Dr. Gypsyjuan Chi PLT 193 103/ul Normal 150-450 [facility] Comment on above: Performed By: #### C BC ####[facility] Wslazretki[address] [place], [place] [address]Dr. Gypsyjuan Chi RBC 4.08 106/ul Critically low 4.20-5.40 The [facility] Comment on above: Performed By: #### C BC ####[facility] Xsxbzig[address] [place], [place] [address]DrKarolina Chi WBC 5.7 103/ul Normal 4.0-11.0 [facility] Comment on above: Performed By: #### C BC ####[facility] Gvrz[address]fsy[address] [place], [place] [address]DrKarolina Chi FREE T3on 04-23-2022 FREE T3 2.90 pg/mlL Normal 2.18-3.98 [facility] Comment on above: Performed By: #### F T3, LIPID, CMP, TSH ####[facility] Jnu[address]rymbv[address] [place], [place] [address]Dr. Soniya Chi FREE T4on 04-23-2022 Free T4 [Mass/Vol] 0.91 ng/dL Normal 0.76-1.46 [facility] Comment on above: Performed By: #### F T4 ####[facility] [address]ipkkup[address] [place] [address]Dr. Soniya Chi LIPID PROFILEon 04-23-2022 CHOL-HDL RATIO NORM SEE BELOW Normal [facility] Comment on above: Result Comment: 3.3 - 4.4 LOW RISK 4.4 - 7.1 AVERAGE RISK 7.1 - 11.0 MODERATE RISK >11.0 HIGH RISK Performed By: #### F T3, LIPID, CMP, TSH ####[facility] [address]mr[address] [place] [address]Dr. Soniya Chi Cholesterol [Mass/Vol] 211 mg/dL Critically high <=200 [facility] Comment on above: Performed By: #### F T3, LIPID, CMP, TSH ####[facility] [address] [place] [address]Dr. Soniya Chi Cholesterol in HDL [Mass/Vol] 109 mg/dL Critically high 4 0-60 [facility] Comment on above: Performed By: #### F T3, LIPID, CMP, TSH ####[facility] V[address] [place] [address]Dr. Soniya Chi Cholesterol in LDL [Mass/Vol] 70.2 mg/dL Normal [facility] Comment on above: Performed By: #### F T3, LIPID, CMP, TSH ####[facility] [address]rbrxmzf[address] [place] [address]Dr. Soniya Chi Cholesterol.total/Cholestero l in HDL [Mass ratio] 1.9 {ratio} Normal [facility] Comment on above: Performed By: #### F T3, LIPID, CMP, TSH ####[facility] [address]ujteg[address] [place] [address]Dr. Soniya Chi HDL NORMAL > or = 60 mg/dl - LO W CARDIOVASCULAR RISK <40 mg/dl - HIGH CARDIOVASCULAR RISK Normal [facility] Comment on above: Performed By: #### F T3, LIPID, CMP, TSH ####[facility] [address]znb4[address] [place] [address]Dr. Soniya Chi LDL CALC NORMAL SEE BELOW Normal The [facility] Comment on above: Result Comment: <100 mg/dl OPTIMAL 100 - 129 mg/dl NEAR OR ABOVE OPTIMAL 130 - 159 mg/dl BORDERLINE HIGH 160 - 189 mg/dl HIGH >190 mg/dl VERY HIGH Performed By: #### F T3, LIPID, CMP, TSH ####[facility] Im[address]rf[address] [place] [address]Dr. Soniya Chi Triglyceride [Mass/Vol] 159 mg/dL Critically high <=150 [facility] Comment on above: Performed By: #### F T3, LIPID, CMP, TSH ####[facility] Ozym[address]osx[address] [place] [address]Dr. Soniya Chi VLDL CALC 31.8 mg/dL Normal [facility] Comment on above: Performed By: #### F T3, LIPID, CMP, TSH ####[facility] V[address]rt[address] [place] [address]Dr. Soniya Chi PROF 14(COMP METB)on 022 Albumin [Mass/Vol] 3.9 g/dL Normal 3.4-5.0 [facility] Comment on above: Performed By: #### F T3, LIPID, CMP, TSH ####[facility] [address]yqdt[address] [place] [address]Dr. Soniya Chi Albumin/Globulin [Mass ratio] 1.0 {ratio} Normal The [facility] Comment on above: Performed By: #### F T3, LIPID, CMP, TSH ####[facility] [address]qs[address]pa[address] [place] [address]Dr. Soniya Chi ALP [Catalytic activity/Vol] 76 U/L Normal 46-116 [facility] Comment on above: Performed By: #### F T3, LIPID, CMP, TSH ####[facility] W[address]itv[address] [place] [address]Dr. Soniya Chi ALT [Catalytic activity/Vol] 35 U/L Normal 14-59 [facility] Comment on above: Performed By: #### F T3, LIPID, CMP, TSH ####[facility] [address]us[address]jwq[address] [place] [address]Dr. Soniya Chi Anion gap [Moles/Vol] 11.8 mmol/L Normal Th e [facility] Comment on above: Performed By: #### F T3, LIPID, CMP, TSH ####[facility] Mdwhnnsxky[address] [place] [address]Dr. Soniya Chi AST [Catalytic activity/Vol] 14 U/L Critically low 15- 37 [facility] Comment on above: Performed By: #### F T3, LIPID, CMP, TSH ####[facility] Lomxa[address]ihc[address] [place] [address]Dr. Soniya Chi Bilirubin [Mass/Vol] 0.6 mg/dL Normal 0.2-1.0 [facility] Comment on above: Performed By: #### F T3, LIPID, CMP, TSH ####[facility] Nnbmeeuesv[address] [place], [place] [address]Dr. Soniya Chi Calcium [Mass/Vol] 10.1 mg/dL Normal 8.5-10.1 [facility] Comment on above: Performed By: #### F T3, LIPID, CMP, TSH ####[facility] Cjtxrgbeom[address] [place], [place] [address]Dr. Soniya Chi Chloride [Moles/Vol] 103 mmol/L Normal 98-107 [facility] Comment on above: Performed By: #### F T3, LIPID, CMP, TSH ####[facility] Ccxbqwcpcs5[address] [place] [address]Dr. Soniya Chi CO2 [Moles/Vol] 29.8 mmol/L Normal 21.0-32.0 The [facility] Comment on above: Performed By: #### F T3, LIPID, CMP, TSH ####[facility] [address]sez[address] [place], [place] [address]Dr. Soniya Chi Creatinine [Mass/Vol] 1.17 mg/dL Critically high 0.55-1.02 [facility] Comment on above: Performed By: #### F T3, LIPID, CMP, TSH ####[facility] [address]fft[address]leag[address] [place] [address]Dr. Soniya Chi EGFR-AF SRI LANKAN 56 mL/min/1.73m2 Critically low >=60 [facility] Comment on above: Performed By: #### F T3, LIPID, CMP, TSH ####[facility] [address]zucesvq[address] [place] [address]Dr. Soniya Chi EGFR-NON AF SRI LANKAN 46 mL/min/1.73m2 Critically low >=60 The [facility] Comment on above: Performed By: #### F T3, LIPID, CMP, TSH ####[facility] Hjuvbebuxs[address] [place] [address]Dr. Soniya Chi Globulin (S) [Mass/Vol] 3.9 g/dL Normal [facility] Comment on above: Performed By: #### F T3, LIPID, CMP, TSH ####[facility] Fdddgyhtjf34[address] [place] [address]Dr. Soniya Chi Glucose [Mass/Vol] 94 mg/dL Normal 74-106 [facility] Comment on above: Performed By: #### F T3, LIPID, CMP, TSH ####[facility] [address]fr[address]hsdbw[address] [place] [address]Dr. Soniya Chi Potassium [Moles/Vol] 3.6 mmol/L Normal 3.5-5.1 [facility] Comment on above: Performed By: #### F T3, LIPID, CMP, TSH ####[facility] Yvvyseqxjp6904 [place] [address]Dr. Soniya Chi Protein [Mass/Vol] 7.8 g/dL Normal 6.4-8.2 The [facility] Comment on above: Performed By: #### F T3, LIPID, CMP, TSH ####[facility] [address]qzjqebrof[address] [place] [address]Dr. Soniya Chi Sodium [Moles/Vol] 141 mmol/L Normal 136-145 [facility] Comment on above: Performed By: #### F T3, LIPID, CMP, TSH ####[facility] Dvueseltpw[address] [place] [address]Dr. Soniya Chi Urea nitrogen [Mass/Vol] 27.0 mg/dL Critically high 7.0-18 .0 [facility] Comment on above: Performed By: #### F T3, LIPID, CMP, TSH ####[facility] Lsiasjtwsi[address] [place] [address]Dr. Soniya Chi Urea nitrogen/Creatinine [Mass ratio] 23.1 mg/mg Normal The [facility] Comment on above: Performed By: #### F T3, LIPID, CMP, TSH ####[facility] O[address]zmtrh[address] [place] [address]Dr. Soniya Chi TSHon 04-23-2022 TSH 3.933 uIU/mL Critically high 0.358-3.740 The [facility] Comment on above: Performed By: #### F T3, LIPID, CMP, TSH ####[facility] Ylbydukyuc[address] [place] [address]Dr. Soniya Chi UA (CLEAN/CATCH) THEATER PROJECTIONIST/MICRO I F IND.on 04-23-2022 Bilirubin Ql (U) Negative Normal NEGATIVE [facility] Comment on above: Performed By: #### U ACSLUIS ICRO ####[facility] Nxsneyjsxh[address] [place], [place] [address]Dr. Soniya Chi Clarity (U) CLEAR Normal CLEAR [facility] Comment on above: Performed By: #### U ACSIND, ICRO ####[facility] Ryxrjzxole64[address] [place] [address]Dr. Soniya Chi Color (U) LT. YELLOW Normal YELLOW [facility] Comment on above: Performed By: #### U ACSIND, ICRO ####[facility] Emgqwinlrs[address] [place] [address]Dr. Soniya Chi Glucose Ql (U) Negative Normal NEGATIVE [facility] Comment on above: Performed By: #### U ACSIND, ICRO ####[facility] Ciosgafslh66[address] [place] [address]Dr. Soniya Chi Hemoglobin Ql (U) Negative Normal NEGATIVE The [facility] Comment on above: Performed By: #### U ACSIND, UMICRO ####[facility] Rcaurizxkv0960 [place] [address]Dr. Soniya Chi Ketones Ql (U) Negative Normal NEGATIVE [facility] Comment on above: Performed By: #### U LUIS ALFORDICRO ####[facility] [address]avxey[address] [place], [place] [address]Dr. Soniya Chi LEUKOCYTES TRACE Abnormal NEGATIVE [facility] Comment on above: Performed By: #### U PRASHANTH UMICRO ####[facility] [address]xjgxma[address] [place], [place] [address]Dr. Soniya Chi Nitrite Ql (U) Negative Normal NEGATIVE [facility] Comment on above: Performed By: #### U PRASHANTH ICRO ####[facility] Q[address]thq[address]qq[address] [place], [place] [address]Dr. Soniya Chi pH (U) 5.5 [pH] Normal 5-9 The [facility] Comment on above: Performed By: #### U LUIS ALFORDICRO ####[facility] Pqxywxtos[address] [place], [place] [address]Dr. Soniya Chi SPEC GRAVITY 1.020 Normal 1.005-<=1.025 The [facility] Comment on above: Performed By: #### Shelby ALFORD ICRO ####[facility] L[address]gzqmejrd[address] [place], [place] [address]Dr. Soniya Chi UA PROTEIN Negative Normal NEGATIVE/ TRACE The [facility] Comment on above: Performed By: #### U LUIS ALFORDICRO ####[facility] [address]uf[address] [place], [place] [address]Dr. Soniya Chi UR MICRO IND INDICATED Normal The [facility] Comment on above: Performed By: #### U PRASHANTH ICRO ####[facility] Rfm[address]nbnf[address] [place], [place] [address]Dr. Soniya Chi Urobilinogen Qn (U) 0.2 {Casimiro'U}/dL Normal 0.2 - 1. 0 The [facility] Comment on above: Performed By: #### U PRASHANTH UMICRO ####[facility] [address] [place], [place] [address]Dr. Soniya Chi URINE MICROSCOPIC ONLYon BACTERIA NONE SEEN Normal NONE SEEN [facility] Comment on above: Performed By: #### LUIS RAOICRO ####[facility] Olisexgamp[address] [place] [address]Dr. Soniya Chi Bacteria identified Cx Nom (U) NOT INDICATED Normal The [facility] Comment on above: Performed By: #### U LUIS ALFORDICRO ####[facility] Hxredaushf[address] [place] [address]Dr. Soniya Chi CAST NONE SEEN Normal NONE SEEN [facility] Comment on above: Performed By: #### U LUIS ALFORDICRO ####[facility] Fetfbmjxye5334 [place] [address]Dr. Soniya Chi Crystals LM Nom (Urine sed) NONE SEEN Normal NONE SEE N The [facility] Comment on above: Performed By: #### LUIS RAOICRO ####[facility] Asxlscwxdk8864 [place] [address]Dr. Soniya Chi Epithelial cells LM Ql (Urine sed) FEW Abnormal N ONE SEEN /RARE The [facility] Comment on above: Performed By: #### LUIS RAOICRO ####[facility] Kxkdonpigb[address] [place] [address]Dr. Soniya Chi MUCOUS TRACE Abnormal NONE SEEN [facility] Comment on above: Performed By: #### LUIS RAOICRO ####[facility] Xhzntnepdv7[address] [place] [address]Dr. Soniya Chi RBC NONE SEEN Abnormal 0-2 [facility] Comment on above: Performed By: #### U PRASHANTH UMICRO ####[facility] J[address]zzeguibg3061 [place] [address]Dr. Soniya Chi WBC 0-2 Abnormal NONE SEEN [facility] Comment on above: Performed By: #### U PRASHANTH UMICRO ####[facility] Wnvufnaymv[address]134 [place] [address]Dr. Soniya Chi MG MAMM SCREEN 3D PANCHITO CADon 04-17-2022 MG MAMM SCREEN 3D PANCHITO CAD Normal The [facility] CULTURE URINEon 04-06-2022 CULTURE URINE Normal The [facility] Comment on above: Performed By: #### U RCX ####[facility] Qobcfbogqj2215 [place] [address]Dr. Soniya Chi ER URINE PROFILEon 2 Bilirubin Ql (U) Negative Normal NEGATIVE The [facility] Comment on above: Performed By: #### U MICRO, ERUR ####[facility] E[address] [place], [place] [address]Dr. Soniya Chi Clarity (U) SL CLOUDY Abnormal CLEAR The [facility] Comment on above: Performed By: #### U MICRO, ERUR ####[facility] [address]qu[address]tozqn[address] [place], [place] [address]Dr. Soniya Chi Color (U) YELLOW Normal YELLOW [facility] Comment on above: Performed By: #### U MICRO, ERUR ####[facility] Ermtupvubv[address] [place], [place] [address]Dr. Soniya Chi ERUAHD A micrscopic examina tion will be performed if indicated. Normal The [facility] l Comment on above: Performed By: #### U MICRO, ERUR ####[facility] M[address]ptswxyu[address] [place], [place] [address]Dr. Soniya Chi Glucose Ql (U) Negative Normal NEGATIVE [facility] Comment on above: Performed By: #### U MICRO, ERUR ####[facility] [address]wrxk[address] [place], [place] [address]Dr. Soniya Chi Hemoglobin Ql (U) LARGE Abnormal NEGATIVE The [facility] Comment on above: Performed By: #### U MICRO, ERUR ####[facility] Pharmuukek[address] [place], [place] [address]Dr. Soniya Chi Ketones Ql (U) Negative Normal NEGATIVE [facility] Comment on above: Performed By: #### U MICRO, ERUR ####[facility] Grgywpkgwu[address] [place], [place] [address]Dr. Soniya Chi LEUKOCYTES LARGE Abnormal NEGATIVE [facility] Comment on above: Performed By: #### U MICRO, ERUR ####[facility] Rbsebkppvh9408 [place] [address]Dr. Soniya Chi Nitrite Ql (U) Negative Normal NEGATIVE [facility] Comment on above: Performed By: #### U MICRO, ERUR ####[facility] Vkmkbtnhgr3487 [place] [address]Dr. Soniya Chi pH (U) 6.5 [pH] Normal 5-9 [facility] Comment on above: Performed By: #### U MICRO, ERUR ####[facility] Tawjggsqdt1655 [place] [address]Dr. Soniya Chi Protein (U) [Mass/Vol] 100 mg/dL Abnormal NEGATIVE/ TRA CE [facility] Comment on above: Performed By: #### U MICRO, ERUR ####[facility] [address]ifq[address] [place], [place] [address]Dr. Soniya Chi SPEC GRAVITY <=1.005 Abnormal 1.005-<=1.025 The [facility] Comment on above: Performed By: #### U MICRO, ERUR ####[facility] [address]jneh[address] [place], [place] [address]Dr. Soniya Chi UR MICRO IND INDICATED Normal The [facility] Comment on above: Performed By: #### U MICRO, ERUR ####[facility] Donmayzqyo[address] [place] [address]Dr. Soniya Chi Urobilinogen Qn (U) 0.2 {Casimiro'U}/dL Normal 0.2 - 1. 0 [facility] Comment on above: Performed By: #### U MICRO, ERUR ####[facility] [address] [place] [address]Dr. Soniya Chi URINE MICROSCOPIC ONLYon BACTERIA MODERATE Abnormal NONE SEEN [facility] ostal Comment on above: Performed By: #### U MICRO, ERUR ####[facility] [address] [place] [address]Dr. Soniya Chi Bacteria identified Cx Nom (U) INDICATED Normal [facility] Comment on above: Performed By: #### U MICRO, ERUR ####[facility] [address] [place] [address]Dr. Soniya Chi CAST NONE SEEN Normal NONE SEEN [facility] o[facility]ital Comment on above: Performed By: #### U MICRO, ERUR ####[facility] [address] [place] [address]Dr. Soniya Chi Crystals LM Nom (Urine sed) NONE SEEN Normal NONE SEE N [facility] Comment on above: Performed By: #### U MICRO, ERUR ####[facility] [address]ub[address] [place] [address]Dr. Soniya Chi Epithelial cells LM Ql (Urine sed) FEW Abnormal N ONE SEEN /RARE [facility] Comment on above: Performed By: #### U MICRO, ERUR ####[facility] [address] [place] [address]Dr. Soniya Chi MUCOUS NONE SEEN Normal NONE SEEN [facility]ital Comment on above: Performed By: #### U MICRO, ERUR ####[facility] [address] [place], [place] [address]Dr. Soniya Chi RBC 20-50 Abnormal 0-2 [facility] Comment on above: Performed By: #### U MICRO, ERUR ####[facility] Z[address] [place], [place] [address]Dr. Soniya Chi WBC (U) [#/Vol] /uL Abnormal NONE SEEN [facility] Comment on above: Performed By: #### U MICRO, ERUR ####[facility] Yj[address]ct[address] [place], [place] [address]Dr. Soniya Chi Covid-19 PCR (CVDTBH)on SARS-CoV-2 (COVID-19) RNA DORIAN+probe Ql (Unsp spec) Not detected Normal NOT DETECTED [facility] Comment on above: Result Comment: This test is not yet approved or cleared by the [place] FDA. When there are no FDA-approved or cleared tests available, and other criteria are met, FDA can make tests available under an emergency access mechanism called an Emergency Use Authorization (EUA). The EUA for this test is supported by the Electroplater Helper of Health and Human Service's (HHS's) declaration that circumstances exist to justify the emergency use of in vitro diagnostics for the detection and/or diagnosis of the virus that causes COVID-19. This EUA will remain in effect (meaning this test can be used) for the duration of the COVID-19 declaration justifying emergency of IVDs, unless it is terminated or revoked by FDA (after which the test may no longer be used).When diagnostic testing is negative, the possibility of a false negative should be considered inthe context of a patient's recent exposures and the presence of clinical signs and symptomsconsistent with SARS-CoV-2. Performed By: #### C VDTB ####[facility] [address] [place], [place] [address]Ty. Gypsyjuan Alon [facility]on 11-30 SARS-CoV-2 (COVID-19) RNA DORIAN+probe Ql (Unsp spec) Detected Critically abnormal NOT DETECTED [facility] Comment on above: Result Comment: This test is not yet approved or cleared by the [place] FDA. When there are no FDA-approved or cleared tests available, and other criteria are met, FDA can make tests available under an emergency access mechanism called an Emergency Use Authorization (EUA). The EUA for this test is supported by the Electroplater Helper of Health and Human Service's declaration that circumstances exist to justify the emergency use of in vitro diagnostics for the detection and/or diagnosis of the virus that causes COVID-19. This EUA will remain in effect for the duration of the COVID-19 declaration justifying emergency of IVDs, unless it is terminated or revoked by the FDA (after which the test may no longer be used). Performed By: #### C VDTB ####[facility] [address]beizp[address] [place], [place] [address]C[address]. [address] HEAD WO CONon 12-15-2021 CT HEAD WO CON Normal [facility] CBC AUTO DIFFon 12-12-2021 BASO # 0.0 103/ul Normal 0.0-0.1 [facility] ospital Comment on above: Performed By: #### C BC ####[facility] [address] [place] [address]Dr. Soniya Chi Basophils/100 WBC (Bld) 0.5 % Normal 0.2-2.0 [facility] Comment on above: Performed By: #### C BC ####[facility] Hdkg[address]es[address] [place], [place] [address]Dr. Soniya Chi EO # 0.1 103/ul Normal 0.0-0.7 [facility] Comment on above: Performed By: #### C BC ####[facility] Ivvvlnzgqi[address] [place], [place] [address]Dr. Soniya Chi Eosinophils/100 WBC (Bld) 1.6 % Normal 0.9-7.0 [facility] Comment on above: Performed By: #### C BC ####[facility] Reshqebaeq[address] [place], [place] [address]Dr. Soniya Chi Erythrocyte distribution wid th (RBC) [Ratio] 12.2 % Normal 11.0-15.0 [facility] Comment on above: Performed By: #### C BC ####[facility] Tjvhx[address] [place], [place] [address]Dr. Soniya Chi Hematocrit (Bld) [Volume fraction] 38.7 % Normal 3 6.0-48.0 [facility] Comment on above: Performed By: #### C BC ####[facility] Seprfswmap[address] [place], [place] [address]Dr. Soniya Chi Hemoglobin (Bld) [Mass/Vol] 12.4 g/dL Normal 12.0-16. 0 [facility] Comment on above: Performed By: #### C BC ####[facility] Mkhswzucyp[address] [place], [place] [address]Dr. Soniya Chi IG # 0.02 10e3/ul Normal 0.00-0.03 [facility] Comment on above: Performed By: #### C BC ####[facility] Wmawiseboq[address] [place], [place] [address]Dr. Soniya Chi IG % 0.3 % Normal 0.0-0.5 [facility] Comment on above: Performed By: #### C BC ####[facility] [address]hoy[address] [place] [address]Dr. Soniya Chi LYMPH # 1.5 103/ul Normal 1.2-3.8 [facility] Comment on above: Performed By: #### C BC ####[facility] [address]jprf[address] [place] [address]Dr. Soniya Chi Lymphocytes/100 WBC (Bld) 20.6 % Normal 20.5-60.0 [facility] Comment on above: Performed By: #### C BC ####[facility] [address]hb[address] [place] [address]Dr. Soniya Chi MANUAL DIFF REQ NO Normal [facility] Comment on above: Performed By: #### C BC ####[facility] Cxjujeoowt[address] [place] [address]Dr. Soniya Chi MCH (RBC) [Entitic mass] 29.5 pg Normal 26.7-34.0 [facility] Comment on above: Performed By: #### C BC ####[facility] X[address]zeeskkf[address] [place] [address]Dr. Soniya Chi MCHC (RBC) [Mass/Vol] 32.0 g/dL Normal 29.9-35.2 [facility] Comment on above: Performed By: #### C BC ####[facility] T[address]qbtnvnk[address] [place] [address]DrKarolina Chi MCV (RBC) [Entitic vol] 91.9 fL Normal 81.0-99.0 [facility] Comment on above: Performed By: #### C BC ####[facility] [address]vszfdhth[address] [place] [address]DrKarolina Chi MONO # 0.5 103/ul Normal 0.3-0.8 [facility] Comment on above: Performed By: #### C BC ####[facility] [address]nxsoia[address] [place] [address]Dr. Soniya Chi Monocytes/100 WBC (Bld) 7.4 % Normal 1.7-12.0 [facility] Comment on above: Performed By: #### C BC ####[facility] Kw[address]cttcq[address] [place] [address]Dr. Gypsyjuan Hci NEUT # 5.1 103/ul Normal 1.4-6.5 [facility]ital Comment on above: Performed By: #### C BC ####[facility] [address]dx[address] [place] [address]DrKarolina Chi Neutrophils/100 WBC (Bld) 69.6 % Normal 43.0-75.0 [facility] Comment on above: Performed By: #### C BC ####[facility] Tqullhhuii[address] [place] [address]DrKarolina Chi Platelet mean volume (Bld) [Entitic vol] 9.7 fL Normal 9.5-13.5 [facility] Comment on above: Performed By: #### C BC ####[facility] Q[address]qux[address]zu[address] [place], [place] [address]DrKarolina Chi PLT 248 103/ul Normal 150-450 [facility] Comment on above: Performed By: #### C BC ####[facility] Otqnugbimz[address] [place], [place] [address]DrKarolina Chi RBC 4.21 106/ul Normal 4.20-5.40 [facility] Comment on above: Performed By: #### C BC ####[facility] Ojqyxzfarw[address] [place], [place] [address]DrKarolina Chi WBC 7.3 103/ul Normal 4.0-11.0 [facility] Comment on above: Performed By: #### C BC ####[facility] Br[address]kl[address] [place] [address]DrKarolina Chi PROF 14(COMP METB)on 022 Albumin [Mass/Vol] 3.8 g/dL Normal 3.4-5.0 [facility] Comment on above: Performed By: #### C MP ####[facility] X[address]uc[address]ox[address] [place], [place] [address]DrKarolina Chi Albumin/Globulin [Mass ratio] 1.0 {ratio} Normal [facility] Comment on above: Performed By: #### C MP ####[facility] Jtabafvvpk[address] [place] [address]Dr. Soniya Alon ALP [Catalytic activity/Vol] 71 U/L Normal 46-116 [facility] Comment on above: Performed By: #### C MP ####[facility] Roflnncbyb[address] [place] [address]Dr. Soniya Alon ALT [Catalytic activity/Vol] 21 U/L Normal 14-59 [facility] Comment on above: Performed By: #### C MP ####[facility] Qlsiupfner[address] [place], [place] [address]Dr. Gypsyjuan Chi Anion gap [Moles/Vol] 12.4 mmol/L Normal [facility] Comment on above: Performed By: #### C MP ####[facility] Xedzohxzif[address] [place], [place] [address]Dr. Gypsyjuan Chi AST [Catalytic activity/Vol] 12 U/L Critically low 15- 37 [facility] Comment on above: Performed By: #### C MP ####[facility] [address]zp[address]xy[address] [place], [place] [address]Dr. Gypsyjuan Chi Bilirubin [Mass/Vol] 0.9 mg/dL Normal 0.2-1.0 [facility] Comment on above: Performed By: #### C MP ####[facility] Idlnxibhik[address] [place], [place] [address]Dr. Soniya Chi Calcium [Mass/Vol] 9.6 mg/dL Normal 8.5-10.1 [facility] Comment on above: Performed By: #### C MP ####[facility] [address] [place], [place] [address]Dr. Soniya Chi Chloride [Moles/Vol] 103 mmol/L Normal 98-107 [facility] Comment on above: Performed By: #### C MP ####[facility] Tts[address] [place], [place] [address]Dr. Soniya Chi CO2 [Moles/Vol] 26.7 mmol/L Normal 21.0-32.0 [facility] Comment on above: Performed By: #### C MP ####[facility] Ywfldnprlj[address] [place] [address]Dr. Soniya Chi Creatinine [Mass/Vol] 1.30 mg/dL Critically high 0.55-1.02 [facility] Comment on above: Performed By: #### C MP ####[facility] X[address]sozte[address] [place] [address]Dr. Soniya Alon EGFR-AF SRI LANKAN 50 mL/min/1.73m2 Critically low >=60 [facility] Comment on above: Performed By: #### C MP ####[facility] Dzzrlotqhc[address] [place] [address]Dr. Soniya Alon EGFR-NON AF SRI LANKAN 41 mL/min/1.73m2 Critically low >=60 [facility] Comment on above: Performed By: #### C MP ####[facility] S[address]amsmnkf[address] [place] [address]Dr. Soniya Alon Globulin (S) [Mass/Vol] 3.7 g/dL Normal [facility] Comment on above: Performed By: #### C MP ####[facility] Hxgdzzihic36[address] [place] [address]Dr. Soniya Alon Glucose [Mass/Vol] 104 mg/dL Normal 74-106 [facility] Comment on above: Performed By: #### C MP ####[facility] [address]qoorjwfyx[address] [place] [address]Dr. Soniya Alon Potassium [Moles/Vol] 4.1 mmol/L Normal 3.5-5.1 [facility] Comment on above: Performed By: #### C MP ####[facility] R[address]izfqotu[address] [place] [address]Dr. Soniya Alon Protein [Mass/Vol] 7.5 g/dL Normal 6.4-8.2 [facility] Comment on above: Performed By: #### C MP ####[facility] F[address]imfuzu[address] [place] [address]Dr. Soniya Alon Sodium [Moles/Vol] 138 mmol/L Normal 136-145 [facility] Comment on above: Performed By: #### C MP ####[facility] Bqjsjcqnzr[address] [place] [address]Dr. Soniya Chi Urea nitrogen [Mass/Vol] 19.0 mg/dL Critically high 7.0-18 .0 [facility] Comment on above: Performed By: #### C MP ####[facility] Dccczulotj[address] [place] [address]Dr. Soniya Chi Urea nitrogen/Creatinine [Mass ratio] 14.6 mg/mg Normal [facility] Comment on above: Performed By: #### C MP ####[facility] Ebuoaglofn[address] [place], [place] [address]Dr. Soniya Chi GLUCOSE BLOODon 11-29-2021 Glucose [Mass/Vol] 106 mg/dL Normal 74-106 [facility] Comment on above: Performed By: #### G COLLEEN, LIPID ####[facility] Lehkkmjcpp[address] [place], [place] [address]Dr. Soniya Chi LIPID PROFILEon 11-29-2021 CHOL-HDL RATIO NORM SEE BELOW Normal [facility] Comment on above: Result Comment: 3.3 - 4.4 LOW RISK 4.4 - 7.1 AVERAGE RISK 7.1 - 11.0 MODERATE RISK >11.0 HIGH RISK Performed By: #### G COLLEEN, LIPID ####[facility] Zfujtabwgg[address] [place], [place] [address]Dr. Soniya Chi Cholesterol [Mass/Vol] 230 mg/dL Critically high <=200 [facility] Comment on above: Performed By: #### G COLLEEN, LIPID ####[facility] [address]jnjx[address] [place] [address]Dr. Soniya Chi Cholesterol in HDL [Mass/Vol] 66 mg/dL Critically high 4 0-60 [facility] Comment on above: Performed By: #### G COLLEEN, LIPID ####[facility] [address]tmxv[address] [place] [address]Dr. Soniya Chi Cholesterol in LDL [Mass/Vol] 113.2 mg/dL Normal [facility] Comment on above: Performed By: #### G COLLEEN, LIPID ####[facility] Rbutbosigy[address] [place] [address]Dr. Soniya Chi Cholesterol.total/Cholestero l in HDL [Mass ratio] 3.5 {ratio} Normal [facility] Comment on above: Performed By: #### G COLLEEN, LIPID ####[facility] Niwezoeeft[address] [place] [address]Dr. Soniya Chi HDL NORMAL > or = 60 mg/dl - LO W CARDIOVASCULAR RISK <40 mg/dl - HIGH CARDIOVASCULAR RISK Normal [facility] Comment on above: Performed By: #### G COLLEEN, LIPID ####[facility] Tn[address]cnxc[address] [place] [address]Dr. Soniya Chi LDL CALC NORMAL SEE BELOW Normal [facility] Comment on above: Result Comment: <100 mg/dl OPTIMAL 100 - 129 mg/dl NEAR OR ABOVE OPTIMAL 130 - 159 mg/dl BORDERLINE HIGH 160 - 189 mg/dl HIGH >190 mg/dl VERY HIGH Performed By: #### G COLLEEN, LIPID ####[facility] Xzmz[address]ypnv[address] [place] [address]Dr. Soniya Chi Triglyceride [Mass/Vol] 254 mg/dL Critically high <=150 [facility] Comment on above: Performed By: #### G COLLEEN, LIPID ####[facility] Xsimxyfyjm[address] [place] [address]Dr. Soniya Chi VLDL CALC 50.8 mg/dL Normal [facility] Comment on above: Performed By: #### G COLLEEN, LIPID ####[facility] Suwdcxwjvz[address] [place] [address]Dr. Soniya Chi Vital Signs Date Time Vital Sign Value Performing Clinician Facility 10-09-2022 07:06-0400 Diastolic blood pressure 89 mm[Hg] Zaira Saravia DO Work Phone: [facility] 10-09-2022 07:06-0400 Heart rate 46 /min Zaira Saravia DO Work Phone: [facility] 10-09-2022 07:06-0400 Respiratory rate 29 /min Zaira Saravia DO Work Phone: [facility] [employer] 10-09-2022 07:06-0400 SaO2% (BldA) [Mass fraction] 99 % Zaira Saravia DO Work Phone: [facility] [employer] 10-09-2022 07:06-0400 Systolic blood pressure 112 mm[Hg] Zaira Saravia DO Work Phone: [facility] [employer] 10-08-2022 13:25-0400 Body temperature 97.11 [degF] Zaira Saravia DO Work Phone: [facility] [employer] 10-08-2022 13:21-0400 Body height 165.1 cm Zaira Saravia DO Work Phone: [facility] [employer] 10-08-2022 13:21-0400 Body mass index (BMI) [Ratio] 29.95 kg/m2 Zaira Saravia DO Work Phone: [facility] [employer] 10-08-2022 13:21-0400 Body weight 81.65 kg Zaira Saravia DO Work Phone: [facility] [employer] 06-18-2022 14:39-0500 Body temperature 97.3 [degF] MD Melva Escobedo Work Phone: [facility] 06-18-2022 14:39-0500 Diastolic blood pressure 71 mm[Hg] MD Melva Escobedo Work Phone: [facility] 06-18-2022 14:39-0500 Heart rate 63 /min MD Melva Escobedo Work Phone: [facility] 06-18-2022 14:39-0500 Respiratory rate 16 /min MD Melva Escobedo Work Phone: [facility] 06-18-2022 14:39-0500 SaO2% (BldA) [Mass fraction] 95 % MD Melva Escobedo Work Phone: [facility] 06-18-2022 14:39-0500 Systolic blood pressure 109 mm[Hg] MD Melva Escobedo Work Phone: [facility] 06-17-2022 09:00-0500 Body weight 70.76 kg MD Melva Escobedo Work Phone: [facility] 06-12-2022 10:32-0500 Body height 154.94 cm MD Melva Escobedo Work Phone: [facility] Encounters Encounter Date Encounter Type Care Provider Facility Start: 02-24-2024 ambulatory Keya L Ezequiel Facility: [facility] Start: 04-29-2023 End: 04-29-2023 ambulatory JOSEPH M ALBERTO Not Available Start: 02-21-2023 End: 02-22-2023 ambulatory Keya L Ezequiel Facility: [facility] Start: 02-04-2023 End: 02-05-2023 ambulatory Keya L Ezequiel Facility[facility] Start: 11-28-2022 ambulatory Melva Escobedo Facility:[facility] Start: 10-23-2022 ambulatory MELVA ESCOBEDO Facility:[facility] Start: 10-09-2022 End: 10-13-2022 Evaluation and management of inpatient Jamil Lundberg Facility:[facility] Start: 10-08-2022 End: 10-09-2022 Emergency department patient visit [facility] Start: 10-08-2022 End: 10-09-2022 Emergency department patient visit Zaira Saravia DO Work Phone: [facility] ED Comment on above: Altered mental statu s, unspecified altered mental status type (Primary Dx); Hypernatremia; Urinary tract infection without hematuria, site unspecified Start: 10-08-2022 End: 10-08-2022 ambulatory [facility] Start: 10-08-2022 End: 10-08-2022 Subsequent hospital visit by physician Jamil Lundberg MD Work Phone: [facility] Start: 10-05-2022 End: 10-06-2022 ambulatory NHAN [facility] Start: 10-04-2022 End: 10-05-2022 ambulatory [facility] Start: 10-04-2022 End: 10-04-2022 Subsequent hospital visit by physician Jamil Lundberg MD Work Phone: [facility] Start: 10-03-2022 End: 10-03-2022 ambulatory [facility] Start: 10-02-2022 End: 10-02-2022 Subsequent hospital visit by physician Jamil Lundberg MD Work Phone: [facility] Start: 09-28-2022 End: 09-29-[address] MELVA ESCOBEDO . Facility:[facility] Start: 09-16-2022 End: 09-17-[address] MEVLA ESCOBEDO . Facility:[facility] Start: 09-16-2022 End: 09-16-2022 ambulatory [facility] Start: 09-10-2022 End: 09-11-2022 ambulatory MELVA ESCOBEDO Facility:[facility] Start: 08-27-2022 End: 08-28-2022 ambulatory [facility] Start: 08-27-2022 End: 08-27-2022 Subsequent hospital visit by physician Jamil Lundberg MD Work Phone: [facility] Start: 08-25-2022 End: 08-26-2022 ambulatory [facility] Start: 08-25-2022 End: 08-25-2022 Subsequent hospital visit by physician Jamil Lundberg MD Work Phone: [facility] Start: 08-16-2022 End: 08-22-2022 Evaluation and management of inpatient DR MELVA ESCOBEDO . Facility:[facility] Start: 08-15-2022 End: 08-15-[address] MELVA ESCOBEDO . Facility:[facility] Start: 08-13-2022 End: 08-14-[address] MELAV ESCOBEDO . Facility:[facility] Start: 08-13-2022 End: 08-14-2022 ambulatory MELVA ESCOBEDO Facility: [facility] Start: 08-01-2022 ambulatory Keya Nieves Facility: [facility] [place] Start: 05-30-2022 End: 06-18-2022 Evaluation and management of inpatient Judith Cordoba Facility:[facility] Start: 05-30-2022 End: 06-18-2022 Evaluation and management of inpatient MD Melva Escobedo Work Phone: [facility] Work Phone: Start: 05-28-2022 End: 05-30-2022 Evaluation and management of inpatient DR MELVA ESCOBEDO . Facility:[facility] Start: 05-06-2022 End: 05-06-[address] MELVA ESCOBEDO . Facility:[facility] Start: 04-23-2022 End: 04-24-[address] MELVA ESCOBEDO . Facility:[facility] Start: 04-17-2022 End: 04-18-[address] MELVA ESCOBEDO . Facility:[facility] Start: 04-03-2022 End: 04-03-[address] OBDULIO BUCK . Facility:[facility] Start: 12-31-2021 End: 12-31-[address] MELVA ESCOBEDO . Facility:[facility] Start: 12-18-2021 End: 12-18-[address] MELVA ESCOBEDO . Facility:[facility] Start: 12-15-2021 End: 12-15-2021 ambulatory TATUM WHEAT Facility:[facility] Start: 12-12-2021 End: 12-13-[address] MELVA ESCOBEDO . Facility:[facility] Start: 11-29-2021 End: 11-30-2021 ambulatory DORA LAZARO Facility:[facility] Procedures Date Procedure Procedure Detail Performing Clinician Start: 10-09-2022 Basic metabolic pane l calcium total Zaira R Saravia DO Work Phone: Start: 10-09-2022 Basic metabolic pane l calcium total Zaira R Saravia DO Work Phone: Start: 10-09-2022 Basic metabolic pane l calcium total Zaira R Saravia DO Work Phone: Start: 10-08-2022 Basic metabolic pane l calcium total Zaira R Saravia DO Work Phone: Start: 10-08-2022 Basic metabolic pane l calcium total Zaira R Saravia DO Work Phone: Start: 10-08-2022 Basic metabolic pane l calcium total Zaira Saravia DO Work Phone: Start: 10-08-2022 Urinalysis microscopic only Zaira Saravia DO Work Phone: Start: 10-08-2022 Urnls dip stick/tabl et rgnt auto w/o microscopy Zaira Saravia DO Work Phone: Start: 10-08-2022 Ct head/brain w/o co ntrast material Zaira Saravia DO Work Phone: Start: 10-08-2022 GLUCOSE, WHOLE BLOOD Ch erick Saravia DO Work Phone: Start: 10-08-2022 Comprehensive metabo lic panel Zaira Saravia DO Work Phone: Start: 10-08-2022 Ecg routine ecg w/le ast 12 lds i&r only Zaira Saravia DO Work Phone: Start: 10-08-2022 Basic metabolic pane l calcium total Melva Morales MOLDER HELPER - TAXONOMIST Work Phone: Start: 10-04-2022 Comprehensive metabo lic panel Jamil Lundberg MD Work Phone: Start: 10-04-2022 Lipid panel Jamil pierce MD Work Phone: Start: 10-02-2022 Assay of thyroid stimulating hormone tsh Jamil Lundberg MD Work Phone: Start: 08-27-2022 Basic metabolic pane l calcium total Mee Hoffmann MOLDER HELPER - [employer]AX[employer]IST Work Phone: Start: 08-25-2022 Urnls dip stick/tabl et rgnt auto w/o microscopy Azul Thompson MD Work Phone: Start: 06-15-2022 Influenza A and B vi annemarie antigen assay MD Melva Escobedo Work Phone: Start: 06-15-2022 Urine culture MD Melva Montaño ight Work Phone: Start: 06-11-2022 CT of head without contrast MD Melva Escobedo Work Phone: Start: 06-04-2022 CT of head without contrast MD Melva Escobedo Work Phone: Plan of Treatment Date Care Activity Detail Author Start: 12-16-2031 DTaP/Tdap/Td vaccine (2 - Tdap) DTaP/Tdap/Td vaccine (2 - Tdap) [facility] Start: 10-05-2027 Lipid panel Lipids [facility] Start: 12-31-2022 Influenza vaccination Flu vaccine (Season Ended) [facility] Start: 08-25-2022 Annual Wellness Visit (AWV) Annual Wellness Visit (AWV) [facility] Start: 06-18-2022 [facility] Start: 06-15-2022 [facility] Start: 06-15-2022 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 to multiple effect evaporator operator [facility] Start: 05-30-2022 Hospital admission [facility] Start: 12-31-2021 Influenza vaccination Flu vaccine (#1) [facility] Start: 02-16-2021 Pneumococcal 65+ years Vaccine (2 - PPSV23 if available, else PCV20) Pneumococcal 65+ years Vaccine (2 - PPSV23 if available, else PCV20) [facility] Start: 2009 Screening for osteoporosis DEXA (modify frequency per FRAX score) [facility] Start: 2004 Screening for malignant neoplasm of breast Breast cancer screen [facility] Start: 2004 Shingles vaccine (1 of 2) Shingles vaccine (1 of 2) [facility] Start: 11-28-1999 Screening for malignant neoplasm of colon [facility] Start: 1989 Diabetes screen Diabetes screen [facility] Start: 1973 DTaP/Tdap/Td vaccine (1 - Tdap) DTaP/Tdap/Td vaccine (1 - Tdap) [facility] Start: 1972 Hepatitis C screening Hepatitis C screen [facility] Start: 1966 Depression Screen Depression Screen [facility] Start: 05-29-1955 COVID-19 Vaccine (#1) COVID-19 Vaccine (#1) [facility] End: 10-11-2022 Basic metabolic 2000 panel - Serum or Plasma Basic Metabolic Panel Lab STAT Every 2 Hours (Lab) for 35 Occurrences starting 10/08/2022 until 10/11/2022, 5 completed [facility] Work Phone: Comment on above: Every 2 Hours (Lab) for 35 Occurrences starting 10/08/2022 until 10/11/2022, 5 completed End: 08-25-2022 Culture, Urine [facility] Work Phone: Comment on above: Once for 1 Occurrenc es starting 08/25/2022 until 08/25/2022 End: 10-08-2022 Culture, Urine [facility] Work Phone: Comment on above: Once for 1 Occurrenc es starting 10/08/2022 until 10/08/2022 Patient Education Schizophrenia (DC) [facility] [place] Instructions [facility] Work Phone: Patient referral [facility] Work Phone: End: 10-02-2022 T3 [facility] Work Phone: Comment on above: Once for 1 Occurrenc es starting 10/02/2022 until 10/02/2022 End: 10-02-2022 T4 [facility] Work Phone: Comment on above: Once for 1 Occurrenc es starting 10/02/2022 until 10/02/2022 End: 10-02-2022 Thyroxine (T4) free [Mass/volume] in Serum or Plasma [facility] Work Phone: Comment on above: Once for 1 Occurrenc es starting 10/02/2022 until 10/02/2022 End: 10-02-2022 Triiodothyronine (T3) Free [Mass/volume] in Serum or Plasma [facility] Work Phone: Comment on above: Once for 1 Occurrenc es starting 10/02/2022 until 10/02/2022 [facility] Payers Date Payer Category Payer Private Health Insurance 2022 Medicare [id number] 2022 Self-pay 1959 Private Health Insurance [id number] 1955 Unknown [id number] [id number]3 1954 Unknown [id number] 2.16.840.1.618027.3.579.2.593 1954 Unknown [id number] 2.16.840.1.007495.3.579.2.593 1954 Unknown [id number] 2.16.840.1.316575.3.579.2.593 1954 Unknown [id number] 2.16.840.1.037112.3.579.2.593 1954 Unknown [id number] 2.16.840.1.819167.3.579.2.593 1954 Unknown [id number] 2.16.840.1.798555.3.579.2.593 1954 Unknown [id number] 2.16.840.1.175493.3.579.2.593 1954 Unknown [id number] 2.16.840.1.727195.3.579.2.593 1954 Unknown [id number] 2.16.840.1.620274.3.579.2.593 1954 Unknown [id number] 2.16.840.1.736634.3.579.2.593 1954 Unknown [id number] 2.16.840.1.057391.3.579.2.593 1954 Unknown [id number] 2.16.840.1.217768.3.579.2.593 1954 Unknown [id number] 2.16.840.1.433224.3.579.2.593 1954 Unknown [id number] 2.16.840.1.196856.3.579.2.593 1954 Unknown [id number] 2.16.840.1.407057.3.579.2.173 1954 Unknown [id number] 2.16.840.1.024353.3.579.2.173 1954 Unknown [id number] 2.16.840.1.029290.3.579.2.173 1954 Unknown [id number] 2.16.840.1.673481.3.579.2.196 1954 Unknown [id number] 2.16.840.1.203678.3.579.2.1259 1954 Unknown [id number] 2.16.840.1.387155.3.579.2.727 1954 Unknown [id number] 2.16.840.1.116996.3.579.2.727 1954 Unknown [id number] 2.16.840.1.462512.3.579.2.727 1954 Unknown [id number] 2.16.840.1.439472.3.579.2.727 1954 Unknown [id number] 2.16.840.1.385974.3.579.2.727 1954 Unknown [id number] 2.16.840.1.672603.3.579.2.727 1954 Unknown [id number] 2.16.840.1.133881.3.579.2.727 Unknown [place] /BS [id number] [id number] Unknown [id number] 2.16.840.1.132531.3.579.2.531 Unknown [id number] 2.16.840.1.477255.3.579.2.531 Social History Date Type Detail Facility Start: 06-15-2022 Tobacco smoking status NHIS Never smoked tobacco (finding) [facility] Start: 1955 Sex Assigned At Female F [facility] Tobacco smoking status [facility] Tobacco smoking consumption unknown [facility] [employer] Work Phone: Start: 1955 Sex Assigned At Not on file B [facility] [employer] Phone: Goals Date Patient Goal Desired Activity /State Functional Status Date Assessment Result Facility 06-18-2022 Functional status Patient is Pro gressing Toward [facility] Work Phone: 05-30-2022 Functional status Disability Sta tus Patient at Baseline [facility] Work Phone: Mental Status Date Assessment Result Facility 06-18-2022 Cognitive function Cognitive Sta tus Patient is Progressing Toward [facility] Work Phone: Clinical Notes 05-31-2022 to 10-13-2022 Note Date & Type Note Facility 10-13-2022 Note Admission Informatio n Patient: Marley Osborn : 1955 Date of Admission: 10/09/2022 08:56:04 Date of Discharge: 10/13/2022 16:45:00 Code Status: [place] DNR - CC [facility] PCP: Tamika ROPER, Jamil Consult: Frank STRICKLAND, Malissa Soto; Luz STRICKLAND, Cintia Rincon; Shay STRICKLAND, Rachel Delcid; Zeus ROPER, Cody Francis; Augusto ROPER, Kei Veloz Diagnoses: 1. Hypernatremia 2. Schizophrenia 3. Hypothermia 4. Metabolic encephalopathy 5. Chronic anticoagulation 6. Bradycardia 7. Encounter for palliative care Brief Hospital Course Summary: The patient is a 66-year-old female, past medical history of catatonic schizophrenia, chronic kidney disease stage unknown at this time, anemia, hypothyroid, DVT hypertension, coronary artery disease, A-fib on Eliquis, osteoporosis, with frequent admissions due to worsening confusion and psychosis in a catatonic state, transferred from [facility] after presenting to their emergency department with chief complaint of altered mental status and hypernatremia. All medical history obtained from transfer paperwork and also patient's Freddy over the phone. Patient is currently residing at [facility]. Admitted to ICU. Consult to nephrology for hyponatremia management. Patient CODE STATUS changed to DNR CC. Transferred to general medical floor on 10/10. Discussed plan of care moving forward with , and options for discharge, after discussion with palliative care opted for hospice. Patient was accepted by [facility], closer to patient's home. Patient was discharged to their facility in stable condition. Assessment: Catatonic schizophrenia Hypernatremia Hypothermia Metabolic encephalopathy Bradycardia Chronic anticoagulation on Eliquis Discharge Plan: - [facility] Discharge Time Spent with Patient: 25 minutes Medications Medications That Were Updated - Follow Current Instructions Other Medications Current: haloperidol (haloperidol 5 mg/mL injectable solution) 5 Milligram Intramuscular (in a muscle) every 6 hours as needed as needed for agitation. Last Dose: Medications That Have Not Changed Other Medications acetaminophen (Tylenol Extra Strength 500 mg oral tablet) 1 Tabs Oral (given by mouth) every 6 hours as needed as needed for pain. Last Dose: apixaban (Eliquis 5 mg oral tablet) 1 Tabs Oral (given by mouth) 2 times a day. Last Dose: benztropine (benztropine 1 mg oral tablet) 1 Tabs Oral (given by mouth) 2 times a day. Last Dose: diphenhydrAMINE (Benadryl 25 mg oral capsule) 1 Capsules Oral (given by mouth) every 6 hours as needed as needed for itching. Last Dose: docusate (docusate sodium 100 mg oral capsule) 1 Capsules Oral (given by mouth) 2 times a day. Scheduled. Last Dose: hydroCHLOROthiazide (hydroCHLOROthiazide 12.5 mg oral tablet) 0.5 Tabs Oral (given by mouth) every day as needed hypertension. Last Dose: levothyroxine (Levoxyl 50 mcg (0.05 mg) oral tablet) 1 Tabs Oral (given by mouth) every day. Last Dose: LORazepam (Ativan 1 mg oral tablet) 1 Tabs Oral (given by mouth) every 6 hours as needed as needed for anxiety. Last Dose: LORazepam (Ativan 2 mg/mL injectable solution) 1 Milligram Intramuscular (in a muscle) every 6 hours as needed anxiety. Last Dose: potassium chloride (Klor-Con M20 oral tablet, extended release) 1 Tabs Oral (given by mouth) 2 times a day. Last Dose: These Medications Were Removed and Should No Longer Be Taken ciprofloxacin (Cipro 500 mg oral tablet) 1 Tabs Oral (given by mouth) 2 times a day for 10 Days. Stop Taking Reason: Physician Request risperiDONE (risperiDONE 2 mg oral tablet) 1 Tabs Oral (given by mouth) 2 times a day. Stop Taking Reason: Physician Request Discharge Plan As noted above in hospital course summary Patient Discharge Condition Stable Discharge Disposition [facility] Objective Vitals & Measurements T: 36.1 ?C (Axillary) HR: 62 (Monitored) RR: 16 BP: 118/72 SpO2: 98% HT: 165 cm WT: 70.4 kg BMI: 26.08 Additional Vitals No qualifying data available. Lab Results Labs (Last four charted values) WBC 6.5 (OCTOBER 13) 7.6 (OCTOBER 10) 5.8 (OCTOBER 09) Hgb L 10.6 (OCTOBER 13) L 10.0 (OCTOBER 10) L 9.7 (OCTOBER 09) Hct L 31.7 (OCTOBER 13) L 30.2 (OCTOBER 10) L 29.2 (OCTOBER 09) Plt 216 (OCTOBER 13) 211 (OCTOBER 10) 187 (OCTOBER 09) Na 141 (OCTOBER 13) H 145 (OCTOBER 12) H 146 (OCTOBER 10) H 148 (OCTOBER 10) K 4.1 (OCTOBER 13) 4.2 (OCTOBER 12) 3.4 (OCTOBER 10) 3.6 (OCTOBER 10) CO2 27 (OCTOBER 13) 29 (OCTOBER 12) 28 (OCTOBER 10) 28 (OCTOBER 10) Cl 108 (OCTOBER 13) H 111 (OCTOBER 12) H 113 (OCTOBER 10) H 113 (OCTOBER 10) Cr H 1.11 (OCTOBER 13) H 1.19 (OCTOBER 12) H 1.20 (OCTOBER 10) H 1.24 (OCTOBER 10) BUN 10 (OCTOBER 13) 16 (OCTOBER 12) 26 (OCTOBER 10) 26 (OCTOBER 10) Mg 1.8 (OCTOBER 13) 2.2 (OCTOBER 10) L 1.5 (OCTOBER 09) Phos L 2.4 (OCTOBER 13) L 2.4 (OCTOBER 10) 2 (more content not included)... [facility] 10-10-2022 Note Chief Complaint Unresponsiveness Reason for Consultation Transfer from [facility] History of Present Illness This is a 66-year-old female with a history of longstanding schizophrenia who also has a history of paroxysmal atrial fibrillation and is on Eliquis 5 mg twice daily who has had multiple psychiatric hospitalizations over the last year according to the because of schizophrenia. She has been at [place] as well as at [facility]. She has apparently been at her current psychiatric facility for approximately a week and a half and apparently she had been very paranoid, and then catatonic. They had been giving her Haldol as needed 5 mg every 6 hours she was also on Risperdal 2 mg twice a day. The reports that earlier in the week she was a alert confused and combative but starting 2 days ago she became much more lethargic not talking and not moving around as much. Yesterday she seemed quite lethargic and was transferred to the [facility] she was found to be hypernatremic as well as hypothermic. She had a sodium of 152 and she was transferred over to [facility]. At this time the reports that she has never been this obtunded. He is agreeable to her having a brain MRI and MRA. He does report in the past the patient became quite combative and I told him we we will use Ativan if needed. In addition she will need EEG and a stat CPK. Temperature is better after her warming blanket. Pertinent labs sodium 152 ammonia 31 B12 793 folate 10.3 vitamin D 2541 BNP 88 magnesium 1.5 Review of Systems Constitutional: [No fevers, chills, sweats] Eye: [No recent visual problems] ENMT: [No ear pain, nasal congestion, sore throat] Respiratory: [No shortness of breath, cough] Cardiovascular: Recent diagnosis of atrial fibrillation Gastrointestinal: [No nausea, vomiting, diarrhea] Genitourinary: [No hematuria] Ra/Lymph: [Negative for bruising tendency, swollen lymph glands] Endocrine: [Negative for excessive thirst, excessive hunger] Musculoskeletal: [No back pain, neck pain, joint pain, muscle pain, decreased range of motion] Integumentary: [No rash, pruritus, abrasions] Neurologic: Obtunded] Psychiatric: [Per chronic schizophrenia no episodes of prolonged unresponsiveness Physical Exam Vitals & Measurements T: 36 ?C (Axillary) TMIN: 36 ?C (Axillary) TMAX: 36.5 ?C (Axillary) HR: 70 (Monitored) RR: 18 BP: 95/62 SpO2: 94% WT: 71 kg 66-year-old white female well-developed well-nourished obtunded does not arouse to speak or follow commands HEENT shows the head is normocephalic atraumatic pupils react to light neck is supple cranial nerves II through XII show no facial asymmetries positive corneals withdraws to nasal stim motor exam with slight increase in tone but no spontaneous movement deep tendon reflexes are 1+ throughout toes are downgoing sensory exam shows some withdrawal but no posturing Additional Vitals No qualifying data available. Assessment/Plan 1. Hypernatremia 2. Schizophrenia 3. Hypothermia 4. Metabolic encephalopathy Rule out brainstem stroke/basilar ischemia. Stat brain MRI and MRA without contrast was ordered. Check CPK rule out rhabdomyolysis. Add EEG to work-up. I did discuss my impression with the at bedside. Time spent with patient, chart, and medical records 70 minutes 5. Chronic anticoagulation 6. Bradycardia Orders: LORazepam, 2 mg, IV Push, Injection, Once, PRN anxiety, First Dose: 10/10/22 13:26:00 EDT, Dispense From Location: [address], 10/10/22 13:26:00 EDT Creatine Phosphokinase Electroencephalogram MRI Brain and MRA Head w/o Contrast Problem List/Past Medical History Ongoing No qualifying data Historical No qualifying data Medications Inpatient acetaminophen, 650 mg, Oral, q6hr, PRN acetaminophen, 650 mg, Oral, q6hr, PRN Benadryl, 25 mg, Oral, q6hr, PRN D5W w/K20 1,000 mL, 1000 mL, IV docusate sodium, 100 mg, Oral, BID Eliquis, 5 mg, Oral, BID levothyroxine, 50 mcg, Oral, Daily LORazepam, 2 mg= 1 mL, IV Push, Once, PRN nitroglycerin, 0.4 mg, SL, q5min, PRN Normal Saline Flush 0.9% injectable solution, 10 mL, IV Push, As Indicated, PRN Normal Saline Flush 0.9% injectable solution, 10 mL, IV Push, BID ondansetron, 4 mg= 2 mL, IV Push, q4hr, PRN polyethylene glycol 3350, 17 g= 1 EA, Oral, Daily, PRN Home Ativan 1 mg oral tablet, 1 mg= 1 tabs, Oral, q6hr, PRN Ativan 2 mg/mL injectable solution, 1 mg, IM, q6hr, PRN Benadryl 25 mg oral capsule, 25 mg= 1 caps, Oral, q6hr, PRN benztropine 1 mg oral tablet, 1 mg= 1 tabs, Oral, BID Cipro 500 mg oral tablet, 500 mg= 1 tabs, Oral, BID docusate sodium 100 mg oral capsule, 100 mg= 1 caps, Oral, BID Eliquis 5 mg oral tablet, 5 mg= 1 tabs, Oral, BID haloperidol 5 mg oral tablet, 5 mg= 1 tabs, Oral, q6hr, PRN haloperidol 5 mg/mL injectable solution, 5 mg, IM, q6hr, PRN hydroCHLOROthiazide 12.5 mg oral tablet, 6.25 mg= 0.5 tabs, Oral, Daily, PRN Klor-Con M2 (more content not included)... [facility] 10-09-2022 Note Reason for Consultat ion Hypernatremia History of Present Illness This is a 66-year-old female, who was initially at [facility] and then sent to [facility] ER on 10/08/22. She has a past medical history of catatonic schizophrenia, chronic kidney disease stage unknown at this time, anemia, hypothyroid, DVT hypertension, coronary artery disease, A-fib on Eliquis, osteoporosis, with frequent admissions due to worsening confusion and psychosis in a catatonic state. She was transferred from [facility] this morning after presenting to their emergency department with chief complaint of altered mental status and hypernatremia. All medical history obtained from extensive transfer paperwork and staff. Prior to sending her to the ER she was given 2 liters of NS. Review of labs on 10/04/22 with a serum sodium of 150, potassium 3.5, CO2 30, cr 0.99. At [facility] she had an initial blood pressure of 195/91, heart rate of 40-55, temp of 36.2, 100% on room air. She received 400 mg Cipro IV piggyback, was started on 5% dextrose in LR. Initial lab results showed a glucose of 96, creatinine 1.97, GFR 60, sodium of 158, potassium 3.5. Normal hepatic function. UA with sp gravity 1.030, pH 6.0, ketones 2+, positive nitrites, moderate leukocytes, WBC>100. CT of the head without contrast showed no acute intracranial abnormality. EKG showed sinus bradycardia. According to paperwork and report from [facility], with patient's underlying psychiatric disorders, baseline ranges from appropriate behavior to catatonia. Patient was admitted to [facility] on 09/28 due to worsening confusion and psychosis and in a catatonic state. In assessment dated 09/29, patient is noncommunicative does not cooperate, does not follow commands. Upon arrival to [facility] she was noted to be hypothermic with a temp of 34.0, bear hugger placed. Nephrology was consulted for hypernatremia. She is seen and evaluated in the ICU, no family present. She is obtunded with little to no response to sternal rub or verbal stimuli. She did open her eyes with palpation of her abdomen. She remained noncommunicative and did not follow any commands. After extensive review of transfer paper work, it appears she has received IVF of at least 2 liters NS, 2 to 3 liters D5LR, and D5/.45 and KCL 40 mEq IV. Review of Systems as above Physical Exam Vitals & Measurements T: 34.0 ?C (Rectal) HR: 71 (Monitored) RR: 12 BP: 103/70 SpO2: 98% HT: 165 cm WT: 71.0 kg BMI: 26.08 Constitutional: obtunded, no acute distress ENT: Normocephalic, mouth breathing, dry oral mucosa Neck: Supple, non-tender, no lymphadenopathy, trachea midline Lungs: diminished bases, room air with o2 sat 97% CV: Normal rate, regular rhythm Abdomen: Soft, round, normal bowel sounds. Musculoskeletal: minimal movement Skin: Skin is warm, dry and pale, multiple healing bruises on legs, arms and trunk Neurologic: Minimal response to painful stimuli, opened eyes with abd palpation, no communicative, did not follow directions Ellison cath intact with yellow urine Additional Vitals No qualifying data available. Assessment/Plan 1. Hypernatremia Transferred to [facility] from [place] for hypernatremia, AMS, hypotension, hypothermia, UTI and multiple electrolyte imbalances. Sodium level on 10/04/22 was elevated at 150. Admission to [place] ER her sodium was 158 at 13:25. Subsequent sodium levels: 10/08 at 18:23-152, 22:00-155, 10/09 at 02:00- 154, 04:00- 156, 06:00- 156. Her potassium was 3.3 and was replaced with 40 mEq of KCL. Magnesium of 1.5 and replaced with mag sulfate 2 gms. Obtain urine electrolytes, urine PCR. Urine and serum osm. Uric acid level. BMP q 6 hours. BNP in the AM. CXR, Blood cultures Obtain iron panel. Change IV fluid to D5W with 20 mEq KCL at 75 ml/hour. Avoid rapid correction. Water deficit calculation for 2.7, 50 % of total deficit to be given over 24 hours. Mix all IVs in D5W if able. Strict I/Os, daily weights Blood pressure soft. At this time she is not taking PO meds, may use Levo if needed for MAP 60-65. 2. Schizophrenia 3. Hypothermia 4. Metabolic encephalopathy 5. Chronic anticoagulation 6. Bradycardia Orders: Dextrose 5% in Water with KCl 20 mEq/L intravenous solution 1,000 mL, 1,000 mL, Soln-IV, IV, 75 mL/hr, Start Date: 10/09/22 16:28:00 EDT, Dispense From Location: [facility], 10/09/22 16:28:00 EDT Basic Metabolic Profile Communication Order Complete Blood Count w/ Differential Culture Blood Magnesium Level Renal Function Panel Strict Intake and Output Weight Problem List/Past Medical History Ongoing No qualifying data Historical No qualifying data Medications Inpatient acetaminophen, 650 mg, Oral, q6hr, PRN acetaminophen, 650 mg, Oral, q6hr, PRN Benadryl, 25 mg, Oral, q6hr, PRN D5W w/K20 1,000 mL, 1000 mL, IV docusate sodium, 100 mg, Oral, BID Eliquis, 5 mg, Oral, BID levothyroxine, 50 mcg, Oral, Daily nitroglycerin, 0.4 mg, SL, q5min, PRN Normal Saline F (more content not included)... [facility] 10-09-2022 Note History of Present I llness The patient is a 66-year-old female, past medical history of catatonic schizophrenia, chronic kidney disease stage unknown at this time, anemia, hypothyroid, DVT hypertension, coronary artery disease, A-fib on Eliquis, osteoporosis, with frequent admissions due to worsening confusion and psychosis in a catatonic state, transferred from [facility] after presenting to their emergency department with chief complaint of altered mental status and hypernatremia. All medical history obtained from transfer paperwork and also patient's Freddy over the phone. Patient is currently residing at [facility]. Patient arrived to [facility] emergency department at 1317 on 10/08 from [facility], with initial blood pressure of 195/91, heart rate of 55 with subsequent pulse rates in the 40s, temp of 36.2, 100% on room air. Patient received 400 mg Cipro IV piggyback, was started on 5% dextrose in LR. Initial lab results showed a glucose of 96, creatinine 1.97, GFR 60, sodium of 158, potassium 4.1. Normal hepatic function. UA showing positive nitrites, moderate leukocytes, WBC>100. CT of the head without contrast showed no acute intracranial abnormality. EKG showed sinus bradycardia. According to paperwork and report from [facility], with patient's underlying psychiatric disorders, baseline ranges from appropriate behavior to catatonia. Patient was admitted to [facility] on 09/28 due to worsening confusion and psychosis and in a catatonic state. In assessment dated 09/29, patient is noncommunicative does not cooperate, does not follow commands. Patient is seen in [facility] ICU and arouses to name but no communication. Vitals are stable, however, patient is significantly hypothermic with temperature at 34.0, and is bradycardic in the 40's. On room air, BP is stable. Review of Systems Unable to obtain due to patient's mentation. Objective General: No acute distress, resting comfortably, nontoxic-appearing, well-nourished Mental Status: Responsive to voice HEENT: No scleral icterus, no drainage Lungs: Clear bilaterally, non-labored respiration, regular rate on room air Heart: Bradycardic, regular rhythm, S1S2 present. No murmur. No edema. Abdomen: Soft, non-tender, non-distended, normal bowel sounds MS: No purposeful movement currently due to mental status Skin: Intact, warm, dry, multiple bruises on lower legs Vitals & Measurements T: 34.0 ?C (Rectal) HR: 56 (Monitored) RR: 10 BP: 113/60 SpO2: 99% HT: 165 cm WT: 71.0 kg BMI: 26.08 Additional Vitals No qualifying data available. Assessment/Plan Brief Hospital Course Summary: The patient is a 66-year-old female, past medical history of catatonic schizophrenia, chronic kidney disease stage unknown at this time, anemia, hypothyroid, DVT hypertension, coronary artery disease, A-fib on Eliquis, osteoporosis, with frequent admissions due to worsening confusion and psychosis in a catatonic state, transferred from [facility] after presenting to their emergency department with chief complaint of altered mental status and hypernatremia. All medical history obtained from transfer paperwork and also patient's Freddy over the phone. Patient is currently residing at [facility]. Admitted to ICU. Assessment: Catatonic schizophrenia Hypernatremia Hypothermia Metabolic encephalopathy Bradycardia Chronic anticoagulation on Eliquis Plan: - Admit patient to ICU - jimy Welsh with temp sensing - Repeat UA with culture, cath specimen - Consult nephrology, Dr. Casas - Await pharmacy medication reconciliation - EKG, currently bradycardia with HR in 40s - thyroid panel, troponin, Mg, phos, cmp, cbc, lactic - d/w Emmie Marie given psych hx and she is familiar with this patient, recently evaluated at [facility], patient also catatonic during psych eval at [facility], no consult at this time but notifying of patient's admission. - D/w patient's Freddy, . Lives in [place] and will not be able to visit until tomorrow. Patient follows with psychiatrist Dr. Lazaro. states the patient has had multiple admissions due to repeat episodes of her catatonia. - Social work for discharge planning - Consider palliative care consult, goals of care, ACP Medical necessity for ongoing hospitalization: Hypernatremia, metabolic encephalopathy, hypothermia Complication risk: Endorgan failure due to hypothermia, increasing sodium Disposition Activity at baseline: Ambulatory, currently resides at [facility] Anticipated Discharge Location: SNF Time spent with the patient bedside, reviewing old and current records, talking to staff and coordinating patient care has been approximately 60 minutes. Code Status: Full Resuscitation Problem List/Past Medical History Ongoing No qualifying data Historical No qualifying data Medications Inpatient acetaminophen, 650 mg, Oral, q6hr, PRN acetaminophen, 650 mg, Oral, q6hr, PRN Dextrose 5% in Lactated Ringers Inj (more content not included)... [facility] 09-16-2022 Note Review of Systems Constitutional: Negative for malaise/fatigue. Cardiovascular: Positive for irregular heartbeat, leg swelling and palpitations. Negative for chest pain, dyspnea on exertion, near-syncope and syncope. Respiratory: Negative for shortness of breath. Neurological: Negative for dizziness, headaches and light-headedness. Marley is in the clinic today to follow up from her recent hospitalization at [facility]. She states that she feels palpitations and/or irregular heartbeats. Her home nurse that came last week stated that she thought Marley's ankles were a bit swollen. No excessive fatigue, chest pain, ABDALLA, or SOB. [facility] 09-16-2022 Note Cardiovascular Medic ine [facility] SUBJECTIVE Chief Complaint Patient presents with Follow-up Hospitalization - A-fib Edema Palpitations Marley Osborn is a 66 y.o. female here for hospital follow-up. She has known HTN, CKD III. HPI Marley is in the clinic today to follow up from her recent hospitalization at [facility]. She states that she feels palpitations and/or irregular heartbeats. Her home nurse that came last week stated that she thought Marley's ankles were a bit swollen. No excessive fatigue, chest pain, ABDALLA, or SOB. She was recently admitted to [facility] for AMS, hypothermia, hypotension, hypothyroidism, and UTI. During her admission she developed a.fib and flutter with controlled ventricular response. She self converted to sinus rhythm/sinus bradycardia. A.fib/flutter was new onset. Today she c/o some anxiety and with accompanied left sided chest pain. This is new for her and just started during visit today as she is nervous about being here. Her accompanied her today (her caregiver) and he states she has not complained of chest pain at home. She denies c/o SOB, dizziness/LH, syncope, bleeding issues. Patient Active Problem List Diagnosis Anxiety disorder HTN (hypertension) Hyperlipidemia, unspecified Loss of memory Major depression with psychotic features (CMS/HCC) LISA (obstructive sleep apnea) No past medical history on file. No family history on file. Social History Tobacco Use Smoking status: Never Smokeless tobacco: Never Substance Use Topics Alcohol use: Yes Comment: rarely Drug use: Never Allergies Allergen Reactions Cephalexin Rash Penicillins Rash Sulfamethoxazole Rash ROS Constitutional: Negative for malaise/fatigue. Cardiovascular: Positive for irregular heartbeat, leg swelling and palpitations. Negative for chest pain, dyspnea on exertion, near-syncope and syncope. Respiratory: Negative for shortness of breath. Neurological: Negative for dizziness, headaches and light-headedness. OBJECTIVE Visit Vitals BP 139/72 (BP Location: Left arm, Patient Position: Sitting) Pulse 72 Ht 1.524 m (5') Wt 76.8 kg (169 lb 6.4 oz) SpO2 96% BMI 33.08 kg/m??? Smoking Status Never BSA 1.8 m??? Medications: Current Outpatient Medications: acetaminophen (Tylenol) 500 mg tablet, Take 500 mg by mouth every 6 (six) hours if needed., Disp: , Rfl: Allergy Relief,diphenhydramin, 25 mg tablet, TAKE 1 TABLET BY MOUTH EVERY 6 HOURS NEEDED FOR ITCHING, Disp: , Rfl: diclofenac (Voltaren) 1 % topical gel, APPLY 2 GRAMS TO BILATERAL SHOULDERS EVERY 8 HOURS NEEDED FOR PIN, Disp: , Rfl: docusate sodium (Colace) 100 mg capsule, TAKE 1 CAPSULE BY MOUTH TWICE DAILY FOR CONSTIPATION, Disp: , Rfl: Eliquis 5 mg tablet, TAKE 1 TABLET BY MOUTH TWICE A DAY FOR BLOOD, Disp: , Rfl: ergocalciferol (Vitamin D-2) 1.25 MG (53626 Units) capsule, TAKE 1 CAPSULE BY MOUTH EVERY 7 DAYS, Disp: , Rfl: hydroCHLOROthiazide (HYDRODiuril) 12.5 mg tablet, TAKE 1/2 TABLET BY MOUTH ONCE DAILY NEEDED FOR HYPERTENSION, Disp: , Rfl: Klor-Con M20 20 mEq ER tablet, Take 20 mEq by mouth in the morning and at bedtime., Disp: , Rfl: levothyroxine (Synthroid, Levoxyl) 75 mcg tablet, TAKE 1 TABLET BY MOUTH EVERY DAY AT 6AM, Disp: , Rfl: risperiDONE (RisperDAL) 2 mg tablet, TAKE 1 TABLET BY MOUTH EVERYDAY AT BEDTIME, Disp: , Rfl: Physical Exam Vitals reviewed. Constitutional: Appearance: Normal appearance. She is obese. HENT: Head: Normocephalic and atraumatic. Right Ear: External ear normal. Left Ear: External ear normal. Eyes: Extraocular Movements: Extraocular movements intact. Conjunctiva/sclera: Conjunctivae normal. Pupils: Pupils are equal, round, and reactive to light. Neck: Vascular: No carotid bruit. Cardiovascular: Rate and Rhythm: Regular rhythm. Bradycardia present. Pulses: Normal pulses. Heart sounds: Normal heart sounds. Pulmonary: Effort: Pulmonary effort is normal. Breath sounds: Normal breath sounds. Abdominal: General: Bowel sounds are normal. Palpations: Abdomen is soft. Musculoskeletal: Cervical back: Neck supple. Right lower leg: Edema present. Left lower leg: Edema present. Comments: Trace BLE edema Skin: General: Skin is warm and dry. Neurological: Mental Status: She is alert and oriented to person, place, and time. Mental status is at baseline. Comments: Delayed response Psychiatric: Mood and Affect: Mood normal. Behavior: Behavior normal. Labs: 08/22/22 Hgb 8, plt 133 Cr 0.96, BUN 17, K 2.7, Na 141, eGFR 58, ALT 23, AST 20 TSH 2.840 08/16/22 Cr 1.27, BUN 24, K 4.3, Na 144, eGFR 42 TSH: 7.84 Testing/Procedures: ECHO 08/19/2022 Ventricular systolic function is normal, LVEF is 55-60%, diastolic function is indeterminate. Mild tricuspid and mitral regurg Mildly elevated right-sided pressures, RVSP 42. IVC is dilated. Trivial pericardial effusion (more content not included)... [facility] 09-02-2022 Note [id number] [facility] 06-17-2022 Progress note Note Date/Time June 17, 2022 2:19pm [facility] [address] [place] [address] Psychiatry Progress Note Signed Patient: Marley Osborn MR#: [id number] : 1955 Acct:[id number] Age/Sex: 66 / F Adm Date: 2 Loc: Room: [address] [place] [address] Type : ADM IN Attending Dr: Reggie Quintana MD Copies to: ~ Date of Service: 06/17/2022 Subjective Subjective Narrative: Ms. Osborn reported that she is doing okay. She reported that she coughed last night and believes that she kept everybody up. She denied any hallucinations atthis time. Denied any side effects to her current medications. MSE: Appearance: grossly normal.? Fair grooming and hygiene, calm, cooperative.? Mental Status: mental status grossly abnormal Mood: ok Affect: Normal Speech and Movement: slow, clear speech Attitude: Cooperative Thought Process: slow processing speed Thought Content: Denied paranoid thoughts. Denies homicidality and suicidality.? Denies auditory hallucinations. Insight: Limited Judgment: Limited Exam Physical Exam Vital Signs: Temp Pulse Resp BP Pulse Ox O2 Del Method 97.5 F L 58 L 16 102/67 95 Room Air 06/17/22 07:30 06/17/22 07:30 06/17/22 07:30 06/17/22 07:30 06/17/22 07:30 06/17/22 07:30 Objective Labs Labs: Abnormal Labs 06/17/22 05:48 Sodium 135 L BUN 26 H Creatinine 1.30 H Glucose 101 H Assessment/Plan Assessment/Plan (1) Schizophrenia: Code(s): F20.9 - Schizophrenia, unspecified Status: Acute (2) Neurocognitive disorder: Code(s): R41.9 - Unspecified symptoms and signs involving cognitive functions and awareness Status: Acute Plan Patient reports feeling better and appears less confused on exam. Anticipate discharge tomorrow with outpatient appointment for possible home health aide -oBGYN recommends Nuswab of vagina, Emperic flagyl and terazol -Continue PT and OT. SNF declined patient, not meeting criteria. -Continue risperidone 1 mg po q daily and 3 mg po hs and Geodon 20 mg bid -Fall risk; continue safety precautions -Continue to monitor mental status -Risks, benefits, and alternatives of treatment explained Documented By: Reggie Quintana MD 06/17/221416 Signed By: <Electronically signed by Reggie Quintana MD> 06/17/22 [facility] Work Phone: [phone] 832-554601-15-2023 Consult note Author Nilo Rosales [facility] June 16, 2022 5:18pm Note Date/Time June 14, 2022 6 :43pm [facility] [address] [place] [address] Hospitalist Consult Note Signed Patient: Marley Osborn MR#: [id number] : 1955 Acct:[id number] Age/Sex: 66 / F Adm Date: 2 Loc: Room: [address] [place] [address] Type: ADM IN Attending Dr: Reggie Quintana MD Copies to: MD Melva Noel MD Kristopher L Lindbloom, DO Linda Obika, APRN~ HPI DATE OF CONSULTATION: 06/14/22 REQUESTING PROVIDER: Reggie Quintana Consult Narrative Reason for Consult: AMS HPI: Patient is a 66-year-old female with past medical history of schizophrenia who was recently discharged from inpatient psychiatric unit who presents with increased hallucinations and anxiety. History of present illness was limited earlier as patient was very agitated, currently she is calm and cooperative and appears to be answering questions appropriately, however nursing staff that is in the room is reporting that she is very confused. She is reporting that she is having burning with urination and abdominal pain when urinating. She denies chest pain, shortness of breath is not any respiratory distress. Afebrile Review of Systems Review of Systems Review of systems: 10 point review of systems obtained, negative unless noted in the HPI below PMFSH Source: Old Records Reviewed Vaccinated for COVID-19?: No Medical History Schizophrenia Social History Smoking Status: Never smoker Substance Use Type: None Meds Medications and Allergies Allergies amoxicillin Allergy (Verified 05/30/22 17:14) Hives cephalexin [From Keflex] Allergy (Verified 05/30/22 17:20) Hives Sulfa (Sulfonamide Antibiotics) Allergy (Verified 05/30/22 17:20) Hives lactose Adverse Reaction (Verified 05/30/22 17:20) Diarrhea Home Medications amitriptyline 10 mg tablet 10 mg PO HS 05/30/22 [History Confirmed 05/30/22] bisoprolol 2.5 mg-hydrochlorothiazide 6.25 mg tablet 1 tab PO DAILY 05/30/22 [History Confirmed 05/30/22] potassium chloride 20 mEq tablet,extended release(part/cryst) (Klor-Con M) 20 meq PO DAILY 30 days #30 tabs 06/11/22 [Rx] risperidone 1 mg tablet 1 mg PO DAILY 15 days #15 tabs 06/11/22 [Rx] risperidone 3 mg tablet 3 mg PO HS 15 days #15 tabs 06/11/22 [Rx] ziprasidone HCl 20 mg capsule 20 mg PO QHS 15 days #15 caps 06/11/22 [Rx] Active Medications: Active Medications Generic Name Dose Route Start Last Admin Trade Name Freq PRN Reason Stop Dose Admin Acetaminophen 500 mg 05/30/22 17:16 Acetaminophen 500 Mg Tablet PO 05/30/23 17:15 Q6H PRN Fever or Pain Al Hydrox/Mg Hydrox/Simethicone 30 ml 12/29/22 17:16 Mag Hydrox/Al Hydrox/Simeth 30 Ml Udc PO 05/30/23 17:15 Q6H PRN Indigestion Amitriptyline HCl 10 mg 05/30/22 22:00 06/13/22 21:07 Amitriptyline 10 Mg Tablet PO 05/30/23 21:59 10 mg HS BASILIA Administration Benztropine Mesylate 1 mg 05/30/22 17:16 Benztropine 2 Mg/2 Ml Ampul IM 05/30/23 17:15 Q6H PRN Dystonia Benztropine Mesylate 1 mg 05/30/22 17:16 Benztropine 1 Mg Tablet PO 05/30/23 17:15 Q6H PRN Dystonia Bisoprolol Fumarate 2.5 mg 05/31/22 09:00 06/14/22 08:18 Bisoprolol 5 Mg Tablet PO 05/31/23 08:59 2.5 mg DAILY BASILIA Administration Ergocalciferol 1,250 mcg 06/15/22 09:00 Ergocalciferol 1,250 Mcg (50,000 Units) Capsule PO 06/15/23 08:59 Q7D BASILIA Hydrochlorothiazide 6.25 mg 05/31/22 09:00 06/14/22 08:19 Hydrochlorothiazide 12.5 Mg Tablet PO 05/31/23 08:59 6.25 mg DAILY BASILIA Administration Hydroxyzine Pamoate 50 mg 05/30/22 17:16 Hydroxyzine Pamoate 50 Mg Capsule PO 05/30/23 17:15 Q6H PRN Anxiety Ibuprofen 400 mg 05/30/22 17:16 06/07/22 08:47 Ibuprofen 400 Mg Tablet PO 05/30/23 17:15 400 mg Q6H PRN Administration Pain Magnesium Hydroxide 30 ml 05/30/22 17:16 Magnesium Hydroxide Susp 30 Ml Udc PO 05/30/23 17:15 Q6H PRN Constipation Multivitamins 1 tab 06/04/22 09:00 06/14/22 08:19 Multivitamin 1 Tab Tablet PO 06/04/23 08:59 1 tab DAILY BASILIA Administration Olanzapine 5 mg 05/30/22 17:16 Olanzapine 10 Mg Vial *Nf* IM 05/30/23 17:15 Q6H PRN Agitation Olanzapine 5 mg 05/30/22 17:16 Olanzapine 5 Mg Tablet PO 05/30/23 17:15 Q6H PRN Agitation Potassium Chloride 20 meq 06/02/22 09:00 06/14/22 08:19 Potassium Chloride Er 20 Meq Tab.Er.Prt PO 06/02/23 08:59 20 meq DAILY BASILIA Administration Risperidone 3 mg 05/30/22 22:00 06/13/22 23:14 Risperidone 3 Mg Tablet PO 05/30/23 21:59 Not Given HS BASILIA Risperidone 1 mg 06/03/22 09:00 06/14/22 08:19 Risperidone 1 Mg Tablet PO 06/03/23 08:59 1 mg DAILY BASILIA Administration Sterile Water 2.1 ml 05/30/22 17:16 Water For Injection,Sterile 10 Ml Vial INJECTION 05/30/23 17:15 PRN PRN To dilute OLANZapine (ZyPREXA) Trazodone HCl 50 mg 05/30/22 17:16 06/13/22 21:07 Trazodone 50 Mg Tablet PO 05/30/23 17:15 50 mg QHS PRN Administration Insomnia Ziprasidone 20 mg 06/14/22 12:05 Ziprasidone 20 Mg Capsule PO 06/14/23 12:04 BID BASILIA Exam Physical Exam Vital Signs: Temp Pulse Resp BP Pulse Ox O2 Del Method 97.9 F 87 20 94/65 L 97 Room Air 06/14/22 15:30 06/14/22 15:30 06/14/22 15:30 06/14/22 15:30 06/14/22 15:30 06/14/22 15:30 Narrative: CONST- Appears well -developed and well nourished No acute distress. HEAD - Normocephalic and atraumatic EENT-Sclera nonicteric and conjunctive are nonerythemic, moist oral mucosa, pharynx clear NECK-Supple, no cervical lymphadenopathy CARDIAC-normal rate, regular rhythm, normal S1 & S2. PULM-diminished without wheeze or rhonchi, RA, no accessory muscle use or cough noted ABD - Soft. Bowel sounds are normal. No distention No tenderness EXTREM-no edema BLE calves nontender SKIN- W/D good turgor MS- MAEX4 spontaneously with equal with equal strength NEURO-confused PSYCH-Mood, affect and behavior appropriate Results Lab Results Labs: Laboratory Results - last 72 hr 06/14/22 14:19: PHA Creatinine Clear 36.05, Sodium 138, Potassium 4.3, Chloride 104, Carbon Dioxide 24.6, Anion Gap 13.7, BUN 36 H, Creatinine 1.44 H, Est GFR ( Amer) 44, Est GFR (Non-Af Amer) 36, Glucose 97, Calcium 10.1, Total Bilirubin 0.9, AST 17, ALT 25, Alkaline Phosphatase 91, Total Protein 7.5, Albumin 4.0, Globulin 3.5, Albumin/Globulin Ratio 1.1 A&P - Hospitalist Assessment/Plan (1) AMS (altered mental status): Plan: Altered mental status Possible vaginitis Patient was reported by nursing staff today have acute confusion, she is reporting dysuria, lower abdominal pain with urination ?CT brain which was done on 06/11/2022 did not show any acute intracranial process, this is likely an infectious process as patient had same symptoms prior to having a UTI during previous stay .?Urinalysis negative, culture pending, ammonia levels within normal limits ?Respiratory panel negative for influenza and COVID ?She was started empirically on Flagyl and Terazol treatment for possible vaginitis, SOFTWARE INTERN following ?Continue supportive care Increased creatinine?likely due to poor oral intake ?Creatinine 1.44, encouraged increased oral intake ?Monitor BMP Schizophrenia ?Continue plan of care Psychiatric team (2) Schizophrenia: Documented By: Marlene Guerra APRN 06/14/22 1842 Signed By: <Electronically signed by DENIA Guerra> 06/15/22 1538 <Electronically signed by Nilo Rosales DO> 06/16/22 1718 [facility] Work Phone: [phone]) 684-197001-15-2023 Progress note Author Marlene Guerra [facility] June 16, 2022 3:07pm Note Date/Time June 16, 2022 2 :37pm [facility] [address] [place] [address] Hospitalist Progress Note Signed Patient: Marley Osborn MR#: [id number] : 1955 Acct:[id number] Age/Sex: 66 / F Adm Date: 2 Loc: Room: [address] [place] [address] Type: ADM IN Attending Dr: Reggie Quintana MD Copies to: ~ Date of Service: 06/16/2022 Subjective Subjective Narrative: Patient seen and examined on follow-up. Mentation significantly improved, reports reports is a little bit tired because she did not get enough sleep. Shedenies lower abdominal pain or burning with urination. Exam Physical Exam Vital Signs: Temp Pulse Resp BP Pulse Ox O2 Del Method 98 F 69 16 147/81 H 97 Room Air 06/16/22 07:30 06/16/22 07:30 06/16/22 07:30 06/16/22 07:30 06/16/22 07:30 06/16/22 07:30 Narrative: CONST- Appears well -developed and well nourished No acute distress. CARDIAC-normal rate, regular rhythm, normal S1 & S2. PULM-diminished without wheeze or rhonchi, RA, no accessory muscle use or cough noted ABD - Soft. Bowel sounds are normal. No distention No tenderness NEURO-confused PSYCH-Mood, affect and behavior appropriate Objective Lab Results 06/15/22 06:13 06/15/22 06:13 Microbiology Results Microbiology 06/15/22 02:15 Clean Void Midstream Urine Culture - Preliminary 20,000 colonies/ml mixed bacterial skin contaminants 1 Day 06/15/22 14:01 Nasopharyngeal Influenza Types A,B Antigen - Final Meds Allergies and Active Meds Allergies amoxicillin Allergy (Verified 05/30/22 17:14) Hives cephalexin [From Keflex] Allergy (Verified 05/30/22 17:20) Hives Sulfa (Sulfonamide Antibiotics) Allergy (Verified 05/30/22 17:20) Hives lactose Adverse Reaction (Verified 05/30/22 17:20) Diarrhea Active Meds: Active Medications Generic Name Dose Route Start Last Admin Trade Name Freq PRN Reason Stop Dose Admin Acetaminophen 500 mg 05/30/22 17:16 Acetaminophen 500 Mg Tablet PO 05/30/23 17:15 Q6H PRN Fever or Pain Al Hydrox/Mg Hydrox/Simethicone 30 ml 05/30/22 17:16 Mag Hydrox/Al Hydrox/Simeth 30 Ml Udc PO 05/30/23 17:15 Q6H PRN Indigestion Amitriptyline HCl 10 mg 05/30/22 22:00 06/15/22 21:02 Amitriptyline 10 Mg Tablet PO 05/30/23 21:59 10 mg HS BASILIA Administration Benztropine Mesylate 1 mg 05/30/22 17:16 Benztropine 2 Mg/2 Ml Ampul IM 05/30/23 17:15 Q6H PRN Dystonia Benztropine Mesylate 1 mg 05/30/22 17:16 Benztropine 1 Mg Tablet PO 05/30/23 17:15 Q6H PRN Dystonia Bisoprolol Fumarate 2.5 mg 05/31/22 09:00 06/16/22 08:33 Bisoprolol 5 Mg Tablet PO 05/31/23 08:59 2.5 mg DAILY BASILIA Administration Ergocalciferol 1,250 mcg 06/15/22 09:00 06/15/22 10:18 Ergocalciferol 1,250 Mcg (50,000 Units) Capsule PO 06/15/23 08:59 1,250 mcg Q7D BASILIA Administration Hydrochlorothiazide 6.25 mg 05/31/22 09:00 06/16/22 08:32 Hydrochlorothiazide 12.5 Mg Tablet PO 05/31/23 08:59 6.25 mg DAILY BASILIA Administration Hydroxyzine Pamoate 50 mg 05/30/22 17:16 Hydroxyzine Pamoate 50 Mg Capsule PO 05/30/23 17:15 Q6H PRN Anxiety Ibuprofen 400 mg 05/30/22 17:16 06/07/22 08:47 Ibuprofen 400 Mg Tablet PO 05/30/23 17:15 400 mg Q6H PRN Administration Pain Magnesium Hydroxide 30 ml 05/30/22 17:16 Magnesium Hydroxide Susp 30 Ml Udc PO 05/30/23 17:15 Q6H PRN Constipation Metronidazole 500 mg 06/15/22 09:30 06/16/22 08:32 Metronidazole 500 Mg Tablet PO 500 mg BID BASILIA Administration Miconazole Nitrate 1 applicator 06/15/22 22:00 06/15/22 21:02 Miconazole 2% Vaginal Cream 45 Gm Tube VAGINAL 06/21/22 22:01 1 applicator QHS BASILIA Administration Multivitamins 1 tab 06/04/22 09:00 06/16/22 08:33 Multivitamin 1 Tab Tablet PO 06/04/23 08:59 1 tab DAILY BASILIA Administration Olanzapine 5 mg 05/30/22 17:16 Olanzapine 10 Mg Vial *Nf* IM 05/30/23 17:15 Q6H PRN Agitation Olanzapine 5 mg 05/30/22 17:16 Olanzapine 5 Mg Tablet PO 05/30/23 17:15 Q6H PRN Agitation Potassium Chloride 20 meq 06/02/22 09:00 06/16/22 08:33 Potassium Chloride Er 20 Meq Tab.Er.Prt PO 06/02/23 08:59 20 meq DAILY BASILIA Administration Risperidone 3 mg 05/30/22 22:00 06/15/22 21:02 Risperidone 3 Mg Tablet PO 05/30/23 21:59 3 mg HS BASILIA Administration Risperidone 1 mg 06/03/22 09:00 06/16/22 08:33 Risperidone 1 Mg Tablet PO 06/03/23 08:59 1 mg DAILY BASILIA Administration Sterile Water 2.1 ml 05/30/22 17:16 06/14/22 19:12 Water For Injection,Sterile 10 Ml Vial INJECTION 05/30/23 17:15 2.1 ml PRN PRN Administration To dilute OLANZapine (ZyPREXA) Sterile Water 2.1 ml 06/14/22 18:45 Water For Injection,Sterile 10 Ml Vial INJECTION 06/14/23 18:44 PRN PRN To dilute OLANZapine (ZyPREXA) Trazodone HCl 50 mg 05/30/22 17:16 06/13/22 21:07 Trazodone 50 Mg Tablet PO 05/30/23 17:15 50 mg QHS PRN Administration Insomnia Ziprasidone 20 mg 06/14/22 12:05 06/16/22 08:32 Ziprasidone 20 Mg Capsule PO 06/14/23 12:04 20 mg BID BASILIA Administration A&P - Hospitalist Assessment/Plan (1) AMS (altered mental status): Plan: Altered mental status?improved Possible vaginitis ?CT brain which was done on 06/11/2022 did not show any acute intracranial process, this is likely an infectious process as patient had same symptoms priorto having a UTI during previous stay .?Urinalysis negative, culture negative for UTI, ammonia levels within normal limits ?Respiratory panel negative for influenza and COVID ?She was started empirically on Flagyl and Terazol treatment for possible vaginitis, SOFTWARE INTERN following ?Continue supportive care Increased creatinine?likely due to poor oral intake ?Creatinine 1.44, encouraged increased oral intake ?Monitor BMP Schizophrenia ?Continue plan of care Psychiatric team (2) Schizophrenia: Documented By: Marlene Guerra APRN 06/16/22 1435 Signed By: <Electronically signed by DENIA Guerra> 06/16/22 1505 [facility] Work Phone: [phone] Progress note Author Marty brewster [facility] June 16, 2022 8:49am Note Date/Time June 16, 2022 8 :48am [facility] [address] [place] [address] Psychiatry Progress Note Signed Patient: Marley Osborn MR#: [id number] : 1955 Acct:[id number] Age/Sex: 66 / F Adm Date: 2 Loc: Room: [address] [place] [address] Type : ADM IN Attending Dr: Reggie Quintana MD Copies to: ~ Date of Service: 06/16/2022 Subjective Subjective Narrative: Ms. Osborn states she is doing better today. She appears less distracted compared to yesterday. She denied any AVH or feeling paranoid. I believe she had a change in mental status due to an active infection. SOFTWARE INTERN started [place] an antifungal. She denied SI/HI. As she continues to receive treatment forher infection, I believe her mental status will improve MSE: Appearance: grossly normal.? Fair grooming and hygiene, calm, cooperative.? Mental Status: mental status grossly abnormal Mood: ok Affect: Normal Speech and Movement: slow, clear speech Attitude: Cooperative Thought Process: slow processing speed Thought Content: Denied paranoid thoughts. Denies homicidality and suicidality.? Denies auditory hallucinations. Insight: Limited Judgment: Limited Exam Physical Exam Vital Signs: Temp Pulse Resp BP Pulse Ox O2 Del Method 98 F 69 16 147/81 H 97 Room Air 06/16/22 07:30 06/16/22 07:30 06/16/22 07:30 06/16/22 07:30 06/16/22 07:30 06/16/22 07:30 Assessment/Plan Assessment/Plan (1) Schizophrenia: Code(s): F20.9 - Schizophrenia, unspecified Status: Acute (2) Neurocognitive disorder: Code(s): R41.9 - Unspecified symptoms and signs involving cognitive functions and awareness Status: Acute Plan Patient reports feeling better and appears less confused on exam -oBGYN recommends Nuswab of vagina, Emperic flagyl and terazol -Continue PT and OT. SNF declined patient, not meeting criteria. -Continue risperidone 1 mg po q daily and 3 mg po hs and Geodon 20 mg bid -Fall risk; continue safety precautions -Continue to monitor mental status -Risks, benefits, and alternatives of treatment explained Documented By: Marty Mclean MD 3 [id number] Signed By: <Electronically signed by Marty Mclean MD> 06/16/22 0849 [facility] Work Phone: 1(368) 581-357701-14-2023 Progress note Author Marty brewster [facility] June 15, 2022 8:48am Note Date/Time June 15, 2022 8 :45am [facility] [address] [place] [address] Psychiatry Progress Note Signed Patient: Marley Osborn MR#: [id number] : 1955 Acct:[id number] Age/Sex: 66 / F Adm Date: 2 Loc: Room: [address] [place] [address] Type : ADM IN Attending Dr: Reggie Quintana MD Copies to: ~ Date of Service: 06/15/2022 Subjective Subjective Narrative: Ms. Osborn was agitated last night and had a change in her mental status. Hospitalist consulted as her WBC were elevated and there was a mild elevation ofcreatinine. Staff noted that there was a greensish discharge noted when she was giving a urine sample. Marley is telling me that she has been having vaginal itching. Will consult Obgyn. She stopped taking her morning medications yesterday but took her night time meds after encouraging. MSE: Appearance: grossly normal.? Fair grooming and hygiene, calm, cooperative.? Mental Status: mental status grossly abnormal Mood: ok Affect: Normal Speech and Movement: slow, clear speech Attitude: agitated Thought Process: slow processing speed Thought Content:+ve for paranoid thoughts. Denies homicidality and suicidality.? Reported auditory hallucinations. Insight: poor Judgment: poor Exam Physical Exam Vital Signs: Temp Pulse Resp BP Pulse Ox O2 Del Method 97.9 F 76 16 100/58 L 95 Room Air 06/14/22 19:51 06/14/22 19:51 06/14/22 19:51 06/14/22 19:51 06/14/22 19:51 06/14/22 19:51 Objective Labs Labs: Abnormal Labs 06/14/22 06/14/22 06/14/22 14:19 19:28 20:43 Corrected WBC 12.3 H Uncorrected WBC Count 12.3 H Hgb RDW 15.8 H Neut # (Auto) 10.8 H Lymph # (Auto) 0.7 L BUN 36 H Creatinine 1.44 H Ammonia 10 L 06/15/22 06/15/22 06:13 06:13 Corrected WBC Uncorrected WBC Count Hgb 11.2 L RDW 15.6 H Neut # (Auto) Lymph # (Auto) 0.9 L BUN 33 H Creatinine 1.44 H Ammonia Assessment/Plan Assessment/Plan (1) Schizophrenia: Code(s): F20.9 - Schizophrenia, unspecified Status: Acute (2) Neurocognitive disorder: Code(s): R41.9 - Unspecified symptoms and signs involving cognitive functions and awareness Status: Acute Plan Patient had an acute change in mental status yesterday. Will rule out infection.Hospitalist and Obgyn consulted. -Continue PT and OT. SNF declined patient, not meeting criteria. -Continue risperidone 1 mg po q daily and 3 mg po hs and Geodon 20 mg bid -Fall risk; continue safety precautions -Continue to monitor mental status -Risks, benefits, and alternatives of treatment explained Documented By: Marty Mclean MD 3 [id number] Signed By: <Electronically signed by Marty Mclean MD> 06/15/22 0848 [facility] Work Phone: 1([phone]) 714-498601-13-2023 Progress note Author Marty brewster [facility] June 14, 2022 3:56pm Note Date/Time June 14, 2022 3 :56pm [facility] [address] [place] [address] Psychiatry Progress Note Signed Patient: Marley Osborn MR#: [id number] : 1955 Acct:[id number] Age/Sex: 66 / F Adm Date: 2 Loc: 1S Room: [address] [place] [address] Type : ADM IN Attending Dr: Reggie Quintana MD Copies to: ~ Date of Service: 06/14/2022 Subjective Subjective Narrative: Ms. Osborn presents as paranoid. She is agitated on exam today and rpeorts hearing voices. She stopped taking her medication this am and has been accusing staff of plotting against her. We will delay her discharge. UA was ordered. MSE: Appearance: grossly normal.? Fair grooming and hygiene, calm, cooperative.? Mental Status: mental status grossly abnormal Mood: ok Affect: Normal Speech and Movement: slow, clear speech Attitude: agitated Thought Process: slow processing speed Thought Content:+ve for paranoid thoughts. Denies homicidality and suicidality.? Reported auditory hallucinations. Insight: poor Judgment: poor Exam Physical Exam Vital Signs: Temp Pulse Resp BP Pulse Ox O2 Del Method 97.9 F 59 L 16 113/58 L 97 Room Air 06/14/22 07:30 06/14/22 07:30 06/14/22 07:30 06/14/22 07:30 06/14/22 07:30 06/14/22 09:00 Objective Labs Labs: Abnormal Labs 06/14/22 14:19 BUN 36 H Creatinine 1.44 H Assessment/Plan Assessment/Plan (1) Schizophrenia: Code(s): F20.9 - Schizophrenia, unspecified Status: Acute (2) Neurocognitive disorder: Code(s): R41.9 - Unspecified symptoms and signs involving cognitive functions and awareness Status: Acute Plan Patient s presents as agitated and paranoid. She stopped taking her meds this morning. -Continue PT and OT. SNF declined patient, not meeting crieteria. -Continue risperidone 1 mg po q daily and 3 mg po hs and increase Geodon to 20 mg bid -Fall risk; continue safety precautions -Continue to monitor mental status -Risks, benefits, and alternatives of treatment explained Documented By: Marty Mclean MD 3 [id number] Signed By: <Electronically signed by Marty Mclean MD> 06/14/22 2175 [facility] Work Phone: 1([phone]) 860-974201-12-2023 Progress note Author Marty brewster [facility] June 13, 2022 12:12pm Note Date/Time June 13, 2022 1 2:12pm [facility] [address] [place] [address] Psychiatry Progress Note Signed Patient: Marley Osborn MR#: [id number] : 1955 Acct:[id number] Age/Sex: 66 / F Adm Date: 2 Loc: Room: [address] [place] [address] Type : ADM IN Attending Dr: Reggie Quintana MD Copies to: ~ Date of Service: 06/13/2022 Subjective Subjective Narrative: Ms. Osborn reports that she is doing well. Sleep and appetite are ok. No SI/HI MSE: Appearance: grossly normal.? Fair grooming and hygiene, calm, cooperative.? Mental Status: mental status grossly abnormal Mood: ok Affect: Normal Speech and Movement: slow, clear speech Attitude: cooperative Thought Process: slow processing speed Thought Content: Denies homicidality and suicidality.? Reported auditory hallucinations. Insight: improving Judgment: improving Exam Physical Exam Vital Signs: Temp Pulse Resp BP Pulse Ox O2 Del Method 96.0 F L 52 L 16 109/61 98 Room Air 06/11/22 21:07 06/12/22 15:30 06/12/22 23:30 06/12/22 15:30 06/12/22 15:30 06/12/22 15:30 Assessment/Plan Assessment/Plan (1) Schizophrenia: Code(s): F20.9 - Schizophrenia, unspecified Status: Acute (2) Neurocognitive disorder: Code(s): R41.9 - Unspecified symptoms and signs involving cognitive functions and awareness Status: Acute Plan Patient seems to be showing improvement with her current symptoms -Continue PT and OT. Case management working on potential placement. -Continue risperidone 1 mg po q daily and 3 mg po hs and Geodon 20 mg with dinner -Fall risk; continue safety precautions -Continue to monitor mental status -Risks, benefits, and alternatives of treatment explained Documented By: Marty Mclean MD 3 [id number] Signed By: <Electronically signed by Marty Mclean MD> 06/13/22 1212 [facility] Work Phone: 1([phone]) 662-724801-11-2023 Progress note Author Marty brewster [facility] June 12, 2022 9:52am Note Date/Time June 12, 2022 9 :52am [facility] [address] [place] [address] Psychiatry Progress Note Signed Patient: Marley Osborn MR#: [id number] : 1955 Acct:[id number] Age/Sex: 66 / F Adm Date: 2 Loc: Room: 1S3973-7 Type : ADM IN Attending Dr: Reggie Quintana MD Copies to: ~ Date of Service: 06/12/2022 Subjective Subjective Narrative: Ms. Osborn reports that she is feeling a little better today. She denied feelingparanoid or having auditory hallucinations. She had a fall today and CT scan showed chronic atrophy and no acute intracranial abnormality. She is isolates most of the time inside her room. MSE: Appearance: grossly normal.? Fair grooming and hygiene, calm, cooperative.? Mental Status: mental status grossly abnormal Mood: ok Affect: Normal Speech and Movement: slow, clear speech Attitude: cooperative Thought Process: slow processing speed Thought Content: Denies homicidality and suicidality.? Reported auditory hallucinations. Insight: improving Judgment: improving Exam Physical Exam Vital Signs: Temp Pulse Resp BP Pulse Ox O2 Del Method 96.0 F L 53 L 16 110/53 L 98 Room Air 06/11/22 21:07 06/12/22 07:30 06/12/22 07:30 06/12/22 07:30 06/12/22 07:30 06/12/22 07:30 Assessment/Plan Assessment/Plan (1) Schizophrenia: Code(s): F20.9 - Schizophrenia, unspecified Status: Acute (2) Neurocognitive disorder: Code(s): R41.9 - Unspecified symptoms and signs involving cognitive functions and awareness Status: Acute Plan Patient seems to be showing improvement with her current symptoms -Continue PT and OT. Case management working on potential placement. -Continue risperidone 1 mg po q daily and 3 mg po hs and Geodon 20 mg with dinner -Fall risk; continue safety precautions -Continue to monitor mental status -Risks, benefits, and alternatives of treatment explained Documented By: Marty Mclean MD 3 0951 Signed By: <Electronically signed by Marty Mclean MD> 06/12/22 0952 [facility] Work Phone: 1([phone] 198-452301-10-2023 Progress note Author Marty brewster [facility] June 11, 2022 6:33pm Note Date/Time June 11, 2022 6 :32pm [facility] [address] [place] [address] Psychiatry Progress Note Signed Patient: Marley Osborn MR#: [id number] : 1955 Acct:[id number] Age/Sex: 66 / F Adm Date: 2 Loc: Room: [address] [place] [address] Type : ADM IN Attending Dr: Reggie Quintana MD Copies to: ~ Date of Service: 06/11/2022 Subjective Subjective Narrative: Ms. Osborn reports that she is feeling a little better today. She slept well last night and has been having less auditory hallucinations. She had a fall today and CT scan showed chronic atrophy and no acute intracranial abnormality. She is isolates most of the time inside her room. MSE: Appearance: grossly normal.? Fair grooming and hygiene, calm, cooperative.? Mental Status: mental status grossly abnormal Mood: ok Affect: Normal Speech and Movement: slow, clear speech Attitude: cooperative Thought Process: slow processing speed Thought Content: Denies homicidality and suicidality.? Reported auditory hallucinations. Insight: improving Judgment: improving Exam Physical Exam Vital Signs: Temp Pulse Resp BP Pulse Ox O2 Del Method 97.2 F L 49 L 16 104/69 99 Room Air 06/10/22 22:36 06/11/22 15:30 06/11/22 15:30 06/11/22 15:30 06/11/22 15:30 06/11/22 15:30 Assessment/Plan Assessment/Plan (1) Schizophrenia: Code(s): F20.9 - Schizophrenia, unspecified Status: Acute (2) Neurocognitive disorder: Code(s): R41.9 - Unspecified symptoms and signs involving cognitive functions and awareness Status: Acute Plan Patient seems to be showing improvement with her current symptoms -Continue PT and OT. Case management working on potential placement. -Continue risperidone 1 mg po q daily and 3 mg po hs and Geodon 20 mg with dinner -Fall risk; continue safety precautions -Continue to monitor mental status -Risks, benefits, and alternatives of treatment explained Documented By: Marty Mclean MD 3 [id number] Signed By: <Electronically signed by Marty Mclean MD> 06/11/22 183 [facility] Work Phone: [phone] Progress note Author Marty brewster [facility] June 10, 2022 10:44am Note Date/Time June 10, 2022 10 :44am [facility] [address] [place] [address] Psychiatry Progress Note Signed Patient: Marley Osborn MR#: [id number] : 1955 Acct:[id number] Age/Sex: 66 / F Adm Date: 2 Loc: Room: [address] [place] [address] Type : ADM IN Attending Dr: Reggie Quintana MD Copies to: ~ Date of Service: 06/10/2022 Subjective Subjective Narrative: Ms. Osborn reports that she is feeling a little better today. She slept well last night and has been having less auditory hallucinations. Patient was personally seen by me on the day of the encounter. I reviewed the history and performed the freitas elements of the assessment. I formulated the planof care and confirmed this with the Resident as noted below Pt denied any SE due to medications. Pt reports her legs are feeling stronger today and she is having an easier time moving around. Pt denies visual hallucinations, SI, or HI. 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 MSE: Appearance: grossly normal.? Fair grooming and hygiene, calm, cooperative.? Mental Status: mental status grossly abnormal Mood: ok Affect: Normal Speech and Movement: slow, clear speech Attitude: cooperative Thought Process: slow processing speed Thought Content: Denies homicidality and suicidality.? Reported auditory hallucinations. Insight: improving Judgment: improving Exam Physical Exam Vital Signs: Temp Pulse Resp BP Pulse Ox O2 Del Method 97.6 F 55 L 16 119/80 100 Room Air 06/10/22 07:49 06/10/22 07:49 06/10/22 07:49 06/10/22 07:49 06/10/22 07:49 06/10/22 07:49 Assessment/Plan Assessment/Plan (1) Schizophrenia: Code(s): F20.9 - Schizophrenia, unspecified Status: Acute (2) Neurocognitive disorder: Code(s): R41.9 - Unspecified symptoms and signs involving cognitive functions and awareness Status: Acute Plan Patient seems to be showing improvement with her current symptoms -Continue PT and OT. Case management working on potential placement. -Continue risperidone 1 mg po q daily and 3 mg po hs and Geodon 20 mg with dinner -Fall risk; continue safety precautions -Continue to monitor mental status -Risks, benefits, and alternatives of treatment explained Documented By: Marty Mclean MD 3 [id number] Signed By: <Electronically signed by Marty Mclean MD> 06/10/22 1044 [facility] Work Phone: 1([phone] 620-714601-08-2023 Progress note Author Reggie Quintana [facility] June 09, 2022 12:26pm Note Date/Time June 09, 2022 12 :26pm [facility] [address] [place] [address] Psychiatry Progress Note Signed Patient: Marley Osborn MR#: [id number] : 1955 Acct:[id number] Age/Sex: 66 / F Adm Date: 2 Loc: Room: [address] [place] [address] Type : ADM IN Attending Dr: Reggie Quintana MD Copies to: ~ Date of Service: 06/09/2022 Subjective Subjective Narrative: Ms. Osborn reported that she heard some things earlier this morning. She reported that when she has increased dose of Risperdal she gets restless. She stated that is why she stopped the medication before. She reported that she cannot sometimes make out the things that she hears. She denied any visual loose [place] at this time. MSE: Appearance: grossly normal. Fair grooming and hygiene, calm, cooperative. Mental Status: mental status grossly abnormal Mood: ok Affect: Normal Speech and Movement: Normal rate and volume Attitude: cooperative Thought Process: slow processing speed Thought Content: Does not endorse paranoid delusions. Endorses no homicidality and no suicidality. Reported auditory hallucinations Insight: improving Judgment: improving Exam Physical Exam Vital Signs: Temp Pulse Resp BP Pulse Ox O2 Del Method 97.8 F 53 L 16 126/76 97 Room Air 06/08/22 07:30 06/09/22 07:25 06/09/22 07:25 06/09/22 07:25 06/09/22 07:25 06/09/22 09:00 Assessment/Plan Assessment/Plan (1) Schizophrenia: Code(s): F20.9 - Schizophrenia, unspecified Status: Acute (2) Neurocognitive disorder: Code(s): R41.9 - Unspecified symptoms and signs involving cognitive functions and awareness Status: Acute Plan Patient seems to be showing improvement with her current symptoms -Continue PT and OT. Case management working on potential placement. -CT scan of the head showing no acute intracranial abnormality -Continue risperidone 1 mg po q daily and 3 mg po hs. We will add Geodon 20 mg with dinner to help with hallucinations -Fall risk; continue safety precautions -Continue to monitor mental status -Risks, benefits, and alternatives of treatment explained -Waiting for PASSR assessment. Documented By: Reggie Quintana MD 06/09/221224 Signed By: <Electronically signed by Reggie Quintana MD> 06/09/221225 [facility] Work Phone: 1([phone]) 136-934501-07-2023 Progress note Author Reggie Quintana [facility] June 08, 2022 12:13pm Note Date/Time June 08, 2022 12 :13pm [facility] [address] [place] [address] Psychiatry Progress Note Signed Patient: Marley Osborn MR#: [id number] : 1955 Acct:[id number] Age/Sex: 66 / F Adm Date: 2 Loc: Room: [address] [place] [address] Type : ADM IN Attending Dr: Reggie Quintana MD Copies to: ~ Date of Service: 06/08/2022 Subjective Subjective Narrative: Ms. Osborn reported that she is doing okay. She reported that she slept okay overnight. She did express some concern for auditory hallucinations but then later stated that it may be her own voice. She denied any visual hallucinations. She stated that overall her mood has been improving. MSE: Appearance: grossly normal. Fair grooming and hygiene, calm, cooperative. Mental Status: mental status grossly abnormal Mood: ok Affect: Normal Speech and Movement: Normal rate and volume Attitude: cooperative Thought Process: slow processing speed Thought Content: Does not endorse paranoid delusions. Endorses no homicidality and no suicidality. Does not appear to be responding to internal stimuli. Insight: improving Judgment: improving Exam Physical Exam Vital Signs: Temp Pulse Resp BP Pulse Ox O2 Del Method 97.8 F 48 L 16 109/73 97 Room Air 06/08/22 07:30 06/08/22 07:30 06/08/22 07:30 06/08/22 07:30 06/08/22 07:30 06/08/22 07:30 Assessment/Plan Assessment/Plan (1) Schizophrenia: Code(s): F20.9 - Schizophrenia, unspecified Status: Acute (2) Neurocognitive disorder: Code(s): R41.9 - Unspecified symptoms and signs involving cognitive functions and awareness Status: Acute Plan Patient seems to be showing improvement with her current symptoms -Continue PT and OT. Case management working on potential placement. -CT scan of the head showing no acute intracranial abnormality -Continue risperidone 1 mg po q daily and 3 mg po hs. -Fall risk; continue safety precautions -Continue to monitor mental status -Risks, benefits, and alternatives of treatment explained -Waiting for PASSR assessment. Documented By: Reggie Quintana MD 06/08/221211 Signed By: <Electronically signed by Reggie Quintana MD> 06/08/221212 [facility] Work Phone: 1(558) 660-989001-06-2023 Progress note Author Marty brewster [facility] June 07, 2022 9:18am Note Date/Time June 07, 2022 9: 17am [facility] [address] [place] [address] Psychiatry Progress Note Signed Patient: Marley Osborn MR#: [id number] : 1955 Acct:[id number] Age/Sex: 66 / F Adm Date: 2 Loc: Room: [address] [place] [address] Type : ADM IN Attending Dr: Reggie Quintana MD Copies to: ~ Date of Service: 06/07/2022 Subjective Subjective Narrative: Ms. Osborn seems distracted and staff noted that she has intermittent confusion.Level II completed and results are pending. Case management following up. She gives short replies after question is repeated. She denied paranoid thoughts orAVH today. She denies SI. MSE: Appearance: grossly normal. Fair grooming and hygiene, calm, cooperative. Difficulty with eye contact today Mental Status: mental status grossly abnormal Mood: ok Affect: reactive affect Speech and Movement: slow speech Attitude: cooperative Thought Process: slow processing speed Thought Content: Does not endorse paranoid delusions. Endorses no homicidality and no suicidality. Does not appear to be responding to internal stimuli. Insight: improving Judgment: improving Exam Physical Exam Vital Signs: Temp Pulse Resp BP Pulse Ox O2 Del Method 98.1 F 60 16 118/70 97 Room Air 06/06/22 21:25 06/06/22 21:25 06/06/22 21:25 06/06/22 21:25 06/06/22 21:25 06/06/22 21:25 Assessment/Plan Assessment/Plan (1) Schizophrenia: Code(s): F20.9 - Schizophrenia, unspecified Status: Acute (2) Neurocognitive disorder: Code(s): R41.9 - Unspecified symptoms and signs involving cognitive functions and awareness Status: Acute Plan Patient seems to be distracted and difficulty managing her ADLs concern for cognitive impairment/dementia with MMSE score of 11/30 -Continue PT and OT. Case management working on potential placement. -CT scan of the head showing no acute intracranial abnormality -Continue risperidone 1 mg po q daily and 3 mg po hs. -Fall risk; continue safety precautions -Continue to monitor mental status -Risks, benefits, and alternatives of treatment explained -Waiting for PASSR assessment. Documented By: Marty Mclean MD 3 [id number] Signed By: <Electronically signed by Marty Mclean MD> 06/07/22 0918 [facility] Work Phone: 1([phone]) 342-168801-05-2023 Progress note Author Marty brewster [facility] June 06, 2022 6:57am Note Date/Time June 06, 2022 6: 57am [facility] [address] [place] [address] Psychiatry Progress Note Signed Patient: Marley Osborn MR#: [id number] : 1955 Acct:[id number] Age/Sex: 66 / F Adm Date: 2 Loc: 1S Room: [address] [place] [address] Type : ADM IN Attending Dr: Reggie Quintana MD Copies to: ~ Date of Service: 06/06/2022 Subjective Subjective Narrative: Ms. Osborn seems distracted and staff noted that she has intermittent confusion.Stated that he had intermittent AH of her 's voice. She has difficulty answering questions as if she does not hear them and is sometimes able to give short replies after question is repeated. She denied paranoid thoughts or AVH today. She denies SI. MSE: Appearance: grossly normal. Fair grooming and hygiene, calm, cooperative. Difficulty with eye contact today Mental Status: mental status grossly abnormal Mood: overwhelmed Affect: flattened affect Speech and Movement: speech is unchanged. Sentences begin clear and intelligiblebut usually end with incomplete thoughts and more garbled, incomprehensible speech. Attitude: cooperative Thought Process: disorganized and slow processing speed Thought Content: Does not endorse paranoid delusions. Endorses no homicidality and no suicidality. Does not appear to be responding to internal stimuli. Insight: limited Judgment: limited Exam Physical Exam Vital Signs: Temp Pulse Resp BP Pulse Ox O2 Del Method 97.5 F L 54 L 16 101/61 94 L Room Air 06/05/22 15:14 06/05/22 20:00 06/05/22 20:00 06/05/22 20:00 06/05/22 20:00 06/05/22 20:00 Assessment/Plan Assessment/Plan (1) Schizophrenia: Code(s): F20.9 - Schizophrenia, unspecified Status: Acute (2) Neurocognitive disorder: Code(s): R41.9 - Unspecified symptoms and signs involving cognitive functions and awareness Status: Acute Plan Patient seems to be distracted and difficulty managing her ADLs concern for cognitive impairment/dementia with MMSE score of 11/30 -Continue PT and OT. Case management working on potential placement. -CT scan of the head showing no acute intracranial abnormality -Continue risperidone 1 mg po q daily and 3 mg po hs. -Fall risk; continue safety precautions -Continue to monitor mental status -Risks, benefits, and alternatives of treatment explained -Consult hospitalist for underlying medical problems, hypokalemia and UTI. Hospitalist is on board for medical management. Documented By: Marty Mclean MD 3 0656 Signed By: <Electronically signed by Marty Mclean MD> 06/06/22 0657 [facility] Work Phone: [phone] 438-960901-04-2023 Progress note Author Marty brewster [facility] June 05, 2022 9:13am Note Date/Time June 05, 2022 9: 13am [facility] [address] [place] [address] Psychiatry Progress Note Signed Patient: Marley Osborn MR#: [id number] : 1955 Acct:[id number] Age/Sex: 66 / F Adm Date: 2 Loc: Room: [address] [place] [address] Type : ADM IN Attending Dr: Reggie Quintana MD Copies to: ~ Date of Service: 06/05/2022 Subjective Subjective Narrative: Ms. Osborn seems distracted and staff noted that she has intermittent confusion. CT scan of the head showing no acute intracranial abnormality She has difficulty answering questions as if she does not hear them and is sometimes able to give short replies after question is repeated. She denied paranoid thoughts or AVH. She denies SI. MSE: Appearance: grossly normal. Fair grooming and hygiene, calm, cooperative. Difficulty with eye contact today Mental Status: mental status grossly abnormal Mood: overwhelmed Affect: flattened affect Speech and Movement: speech is unchanged. Sentences begin clear and intelligiblebut usually end with incomplete thoughts and more garbled, incomprehensible speech. Attitude: cooperative Thought Process: disorganized and slow processing speed Thought Content: Does not endorse paranoid delusions. Endorses no homicidality and no suicidality. Does not appear to be responding to internal stimuli. Insight: limited Judgment: limited Exam Physical Exam Vital Signs: Temp Pulse Resp BP Pulse Ox O2 Del Method 97.3 F L 50 L 16 117/75 96 Room Air 06/05/22 07:30 06/05/22 07:30 06/05/22 07:30 06/05/22 07:30 06/05/22 07:30 06/05/22 07:30 Assessment/Plan Assessment/Plan (1) Schizophrenia: Code(s): F20.9 - Schizophrenia, unspecified Status: Acute (2) Neurocognitive disorder: Code(s): R41.9 - Unspecified symptoms and signs involving cognitive functions and awareness Status: Acute Plan Patient seems to be distracted and difficulty managing her ADLs concern for cognitive impairment/dementia with MMSE score of 05/01 -Continue PT and OT. -CT scan of the head showing no acute intracranial abnormality -Continue risperidone 1 mg po q daily and 3 mg po hs. -Fall risk; continue safety precautions -Continue to monitor mental status -Risks, benefits, and alternatives of treatment explained -Consult hospitalist for underlying medical problems, hypokalemia and UTI. Hospitalist is on board for medical management. Documented By: Marty Mclean MD 3 0912 Signed By: <Electronically signed by Marty Mclean MD> 06/05/22 0913 [facility] Work Phone: 1([phone]) 256-833301-03-2023 Progress note Author Marty brewster [facility] June 04, 2022 8:29am Note Date/Time June 04, 2022 8: 27am [facility] [address] [place] [address] Psychiatry Progress Note Signed Patient: Marley Osborn MR#: [id number] : 1955 Acct:[id number] Age/Sex: 66 / F Adm Date: 2 Loc: Room: [address] [place] [address] Type : ADM IN Attending Dr: Reggie Quintana MD Copies to: ~ Date of Service: 06/04/2022 Subjective Subjective Narrative: Ms. Osborn seems distracted and it was hard for her to get out of bed and use her walker she reports feeling more dizzy. Overnight she was confused, she stated that we have to go somewhere from 3 AM to 11 AM.? She was reassured we were not going anywhere.? She then stated she had to get dressed. Marley has difficulty answering questions as if she does not hear them and is sometimes able to give short replies after question is repeated. She is unable to confirm whether or not she still has AVH. She denies SI. MSE: Appearance: grossly normal. Fair grooming and hygiene, calm, cooperative. Difficulty with eye contact today Mental Status: mental status grossly abnormal Mood: overwhelmed Affect: flattened affect Speech and Movement: speech is unchanged. Sentences begin clear and intelligiblebut usually end with incomplete thoughts and more garbled, incomprehensible speech. Attitude: cooperative Thought Process: disorganized and slow processing speed Thought Content: Does not endorse paranoid delusions. Endorses no homicidality and no suicidality. Does not appear to be responding to internal stimuli. Insight: limited Judgment: limited Exam Physical Exam Vital Signs: Temp Pulse Resp BP Pulse Ox O2 Del Method 98 F 52 L 16 115/64 94 L Room Air 06/03/22 15:58 06/04/22 07:30 06/04/22 07:30 06/04/22 07:30 06/04/22 07:30 06/04/22 07:30 Assessment/Plan Assessment/Plan (1) Schizophrenia: Code(s): F20.9 - Schizophrenia, unspecified Status: Acute Plan Patient seems to be distracted and difficulty managing her ADLs concern for cognitive impairment/dementia with MMSE score of 11/30 -Continue PT and OT. -Order CT scan of the head -Continue risperidone 1 mg po q daily and 3 mg po hs. -Fall risk; continue safety precautions -Continue to monitor mental status -Risks, benefits, and alternatives of treatment explained -Consult hospitalist for underlying medical problems, hypokalemia and UTI. Continue oral antibiotics per hospitalist recommendations. Levofloxacin day 2. Documented By: Marty Mclean MD 825 Signed By: <Electronically signed by Marty Mclean MD> 06/04/22 08 [facility] Work Phone: [phone] Progress note Author Marty brewster [facility] June 03, 2022 12:55pm Note Date/Time June 03, 2022 10 :30am [facility] [address] [place] [address] Psychiatry Progress Note Signed with Addenda Patient: Marley Osborn MR#: [id number] : 1955 Acct:[id number] Age/Sex: 66 / F Adm Date: 2 Loc: 1S Room: [address] [place] [address] Type : ADM IN Attending Dr: Reggie Quintana MD Copies to: ~ ADDENDUM1 Correct MMSE score noted in HPI: 05/31. Not 05/01 as stated in Plan. Addendum Documented By: MD TARA Vasquez 06/03/22 1246 Addendum Signed By: <Electronically signed by MD TARA Vasquez> 06/03/22 1246 <Electronically signed by Marty Mclean MD> 06/03/22 1255 Date of Service: 06/03/2022 Subjective Subjective Narrative: Ms. Osborn seems more confused today. She states people are coming into her roomand doing things for her. According to nursing, she had increased difficulty overnight understanding directions and needed constant fria-ki-rows prompting tocomplete tasks like going to bathroom and washing her hands. Marley has difficulty answering questions as if she does not hear them and is sometimes able to give short replies after question is repeated. She states she feels overwhelmed today but cannot elaborate. She is unable to confirm whether or not she still has AVH. She denies SI. Patient was personally seen by me on the day of the encounter. I reviewed the history and performed the freitas elements of the assessment. I formulated the planof care and confirmed this with the Resident as noted below Mini-Mental State Exam (MMSE) performed with score of 05/31. After being unable to answer many of the questions, she was delighted when she was able to easily identify the two objects. At the conclusion of the test, she states, Thank youfor being patient with me. MSE: Appearance: grossly normal. Fair grooming and hygiene, calm, cooperative. Difficulty with eye contact today Mental Status: mental status grossly abnormal Mood: overwhelmed Affect: flattened affect Speech and Movement: speech is unchanged. Sentences begin clear and intelligiblebut usually end with incomplete thoughts and more garbled, incomprehensible speech. Attitude: cooperative Thought Process: disorganized Thought Content: Does not endorse paranoid delusions. Endorses no homicidality and no suicidality. Does not appear to be responding to internal stimuli. Insight: limited Judgment: limited Exam Physical Exam Vital Signs: Temp Pulse Resp BP Pulse Ox O2 Del Method 97.8 F 52 L 17 124/68 95 Room Air 06/03/22 07:30 06/03/22 07:30 06/03/22 07:30 06/03/22 07:30 06/03/22 07:30 06/03/22 07:30 Assessment/Plan Assessment/Plan (1) Schizophrenia: Code(s): F20.9 - Schizophrenia, unspecified Status: Acute Plan Patient seems to be less coherent than yesterday. Concern for cognitive impairment/dementia with MMSE score of 05/01 -Continue risperidone 1 mg po q daily and 3 mg po hs. -Fall risk; continue safety precautions -Continue to monitor mental status -Risks, benefits, and alternatives of treatment explained -Consult hospitalist for underlying medical problems, hypokalemia and UTI. Continue oral antiobiotics per hospitalist recommendations. Levofloxacin day 2. Documented By: Marty Mclean MD 3 1021 Signed By: <Electronically signed by Marty Mclean MD> 06/03/22 1223 <Electronically signed by MD TARA Vasuqez> 06/03/22 1206 [facility] Work Phone: 1([phone]) 280-811201-01-2023 Consult note Author Elvin Khan [facility] June 02, 2022 12:01pm Note Date/Time June 01, 2022 12:13pm [facility] [address] [place] [address] Hospitalist Consult Note Signed Patient: Marley Osborn MR#: [id number] : 1955 Acct:[id number] Age/Sex: 66 / F Adm Date: 2 Loc: Room: [address] [place] [address] Type: ADM IN Attending Dr: Reggie Quintana MD Copies to: MD Elvin Noel MD Kim E Knight, MD Paula G Smith, MOLDER HELPER~ HPI DATE OF CONSULTATION: 06/01/22 REQUESTING PROVIDER: Reggie Quintana Consult Narrative Reason for Consult: Anemia, hypokalemia, and confusion HPI: Mrs. Osborn is a 66-year-old female with a PMH of schizophrenia, dementia, and HTN that was transferred to [facility] for MHP from [facility] where she was hospitalized for increasing confusion and aggression. Patient seen and evaluated in 1 S., she is sitting in a table eating lunch. She is alert. She denies chest pain, shortness of breath. She denies dysuria. She denies fever, chills. She was admitted to [facility] and work-up included a CT of the head which was negative, CTA of the head neck were also negative for occlusion. She had seen her outpatient psychiatrist for increasing confusion and aggression at home and her risperidonewas increased. Urine culture sensitivity faxed over which shows Streptococcus agalactiae, but only 1 in 10,000. UA repeated here, culture pending. She was previously treated with IV levofloxacin at [facility] for UTI. Hospitalist team has been consulted for medical management of anemia, hypokalemia, UTI, and confusion. Thank you for this consultation. Review of Systems Review of Systems Review of systems: A 10 point review of systems was obtained, negative unless noted in the HPI or below. PMFSH Vaccinated for COVID-19?: No Medical History (Updated 06/01/22 @ 12:31 by Anca Wheeler APRN) Schizophrenia Social History Smoking Status: Never smoker Substance Use Type: None Meds Medications and Allergies Allergies amoxicillin Allergy (Verified 05/30/22 17:14) Hives cephalexin [From Keflex] Allergy (Verified 05/30/22 17:20) Hives Sulfa (Sulfonamide Antibiotics) Allergy (Verified 05/30/22 17:20) Hives lactose Adverse Reaction (Verified 05/30/22 17:20) Diarrhea Home Medications amitriptyline 10 mg tablet 10 mg PO HS 05/30/22 [History Confirmed 05/30/22] aripiprazole 5 mg tablet 5 mg PO DAILY 05/30/22 [History Confirmed 05/30/22] bisoprolol 2.5 mg-hydrochlorothiazide 6.25 mg tablet 1 tab PO DAILY 05/30/22 [History Confirmed 05/30/22] risperidone 0.5 mg tablet 0.5 mg PO HS 05/30/22 [History Confirmed 05/30/22] risperidone 2 mg tablet 2 mg PO HS 05/30/22 [History Confirmed 05/30/22] Active Medications: Active Medications Generic Name Dose Route Start Last Admin Trade Name Freq PRN Reason Stop Dose Admin Acetaminophen 500 mg 05/30/22 17:16 Acetaminophen 500 Mg Tablet PO 05/30/23 17:15 Q6H PRN Fever or Pain Al Hydrox/Mg Hydrox/Simethicone 30 ml 05/30/22 17:16 Mag Hydrox/Al Hydrox/Simeth 30 Ml Udc PO 05/30/23 17:15 Q6H PRN Indigestion Amitriptyline HCl 10 mg 05/30/22 22:00 05/31/22 21:14 Amitriptyline 10 Mg Tablet PO 05/30/23 21:59 10 mg HS BASILIA Administration Benztropine Mesylate 1 mg 05/30/22 17:16 Benztropine 2 Mg/2 Ml Ampul IM 05/30/23 17:15 Q6H PRN Dystonia Benztropine Mesylate 1 mg 05/30/22 17:16 Benztropine 1 Mg Tablet PO 05/30/23 17:15 Q6H PRN Dystonia Bisoprolol Fumarate 2.5 mg 05/31/22 09:00 06/01/22 08:06 Bisoprolol 5 Mg Tablet PO 05/31/23 08:59 2.5 mg DAILY BASILIA Administration Hydrochlorothiazide 6.25 mg 05/31/22 09:00 06/01/22 08:05 Hydrochlorothiazide 12.5 Mg Tablet PO 05/31/23 08:59 6.25 mg DAILY BASILIA Administration Hydroxyzine Pamoate 50 mg 05/30/22 17:16 Hydroxyzine Pamoate 50 Mg Capsule PO 05/30/23 17:15 Q6H PRN Anxiety Ibuprofen 400 mg 05/30/22 17:16 Ibuprofen 400 Mg Tablet PO 05/30/23 17:15 Q6H PRN Pain Magnesium Hydroxide 30 ml 05/30/22 17:16 Magnesium Hydroxide Susp 30 Ml Udc PO 05/30/23 17:15 Q6H PRN Constipation Olanzapine 5 mg 05/30/22 17:16 Olanzapine 10 Mg Vial *Nf* IM 05/30/23 17:15 Q6H PRN Agitation Olanzapine 5 mg 05/30/22 17:16 Olanzapine 5 Mg Tablet PO 05/30/23 17:15 Q6H PRN Agitation Potassium Chloride 40 meq 06/01/22 10:00 06/01/22 10:21 Potassium Chloride Er 20 Meq Tab.Er.Prt PO 06/01/23 09:59 40 meq DAILY BASILIA Administration Risperidone 3 mg 05/30/22 22:00 05/31/22 21:14 Risperidone 3 Mg Tablet PO 05/30/23 21:59 3 mg HS BASILIA Administration Risperidone 0.5 mg 06/01/22 09:00 06/01/22 08:05 Risperidone 0.5 Mg Tablet PO 06/01/23 08:59 0.5 mg DAILY BASILIA Administration Sterile Water 2.1 ml 05/30/22 17:16 Water For Injection,Sterile 10 Ml Vial INJECTION 05/30/23 17:15 PRN PRN To dilute OLANZapine (ZyPREXA) Trazodone HCl 50 mg 05/30/22 17:16 05/31/22 21:14 Trazodone 50 Mg Tablet PO 05/30/23 17:15 50 mg QHS PRN Administration Insomnia Exam Physical Exam Vital Signs: Temp Pulse Resp BP Pulse Ox O2 Del Method 97.4 F L 50 L 18 112/73 98 Room Air 06/01/22 07:30 06/01/22 07:30 06/01/22 07:30 06/01/22 07:30 06/01/22 07:30 06/01/22 07:30 Narrative: CONST- Appears well -developed and well nourished. HEAD - Normocephalic and atraumatic EENT-Sclera nonicteric, conjunctive are non-erythemic, moist oral mucosa, pharynx clear NECK-Supple, no cervical lymphadenopathy CARDIAC-normal rate, regular rhythm, S1 & S2. PULM-diminished without wheeze or rhonchi, RA, no accessory muscle use or cough noted ABD - Soft. Bowel sounds are normal. No distention. No tenderness EXTREM-no edema BLE calves, nontender SKIN- W/D good turgor MS- MAEX4 spontaneously with equal with equal strength NEURO- A&Ox3 speech clear and tongue midline, equal facial symmetry, speech slow, soft PSYCH-Mood, affect, and behavior appropriate Results Lab Results Labs: Laboratory Results - last 72 hr 06/01/22 05:52: Ammonia 15 06/01/22 05:52: PHA Creatinine Clear 45.46, Sodium 142, Potassium 3.2 L, Chloride 110, Carbon Dioxide 26.4, Anion Gap 8.8, BUN 25 H, Creatinine 1.12 H, Est GFR ( Amer) 59, Est GFR (Non-Af Amer) 49, Glucose 79, Calcium 9.4 06/01/22 05:52: Corrected WBC 5.1, Uncorrected WBC Count 5.1, RBC 2.97 L, Hgb 8.9 L, Hct 27.0 L, MCV 90.7, MCH 30.0, MCHC 33.0, RDW 14.7, Plt Count 95 L, MPV 9.1, Neut % (Auto) 57.4, Lymph % (Auto) 26.3, [place] % (Auto) 11.7, Eos % (Auto) 4.1, Baso % (Auto) 0.5, Nucleat RBC Rel Count 0.3, Neut # (Auto) 2.9, Lymph # (Auto) 1.3, [place] # (Auto) 0.6, Eos # (Auto) 0.2, Baso # (Auto) 0.0 05/31/22 21:37: Urine Color Yellow, Urine Appearance Clear, Urine pH 5.5, Ur Specific [place] 1.030, Urine Protein Negative, Urine Glucose (UA) Normal, UrineKetones Negative, Urine Occult Blood Trace H, Urine Nitrite Negative, Urine Bilirubin Negative, Urine Urobilinogen Normal, Ur Leukocyte Esterase 2+ H, UrineRBC 3-4, Urine WBC 10-19 H, Ur Squamous Epith Cells 3-4 H, Uric Acid Crystals 3+, Urine Bacteria Rare H, Hyaline Casts 10-19 H, Fine Granular Casts 1-2 H, Other Casts None seen, Urine Mucus 4+ A 05/31/22 06:26: Triglycerides 81, Cholesterol 139 L, LDL Cholesterol, Calc 50, VLDL Cholesterol 16, HDL Cholesterol 73, Cholesterol/HDL Ratio 1.9, 25-OH Vitamin D Total 13.1 L, TSH 3rd Generation 2.75 Microbiology Results Micro: 05/31/22 21:37 Urine Culture - Pending Urine - Clean-Voided Midstream A&P - Hospitalist Assessment/Plan (1) Anemia: (2) Hypokalemia: (3) UTI (urinary tract infection): (4) Confusion: (5) HTN (hypertension): Plan Anemia?current hemoglobin 8.9, hematocrit 27 ? Check iron studies, ferritin ? CBC in a.m. Hypokalemia ? Repleted, 20 mEq daily ? BMP in a.m. UTI ? UA repeated, culture pending ? Sensitivity from [facility] shows Streptococcus agalactiae ? Oral levofloxacin x3 days Confusion could be secondary to UTI or increasing dementia ? Check TSH, B12, folate HTN ? Continue to monitor Documented By: Anca Wheeler APRN 06/01/22 1211 Signed By: <Electronically signed by DENIA Wheeler> 06/01/22 1246 <Electronically signed by Elvin Khan MD> 06/02/22 1201 [facility] Work Phone: 1(262) 930-298301-01-2023 Progress note Author Marty brewster [facility] June 02, 2022 9:23am Note Date/Time June 02, 2022 9: 23am [facility] [address] [place] [address] Psychiatry Progress Note Signed Patient: Marley Osborn MR#: [id number] : 1955 Acct:[id number] Age/Sex: 66 / F Adm Date: 2 Loc: Room: [address] [place] [address] Type : ADM IN Attending Dr: Reggie Quintana MD Copies to: ~ Date of Service: 06/02/2022 Subjective Subjective Narrative: Ms. Osborn reports she is feeling better today. Hospitalist was consulted due to hypokalemia and potential UTI. She was ordered oral levofloxacin for 3 days. She is slow on exam but thought process is less disorganized. She denied SI/HI and noted medications are helping. MSE: Appearance: grossly normal. Fair grooming and hygiene, calm, cooperative. Mental Status: mental status grossly abnormal Mood: ok Affect: reactive affect Speech and Movement: speech is normal Attitude: cooperative Thought Process: organized Thought Content: Does not endorse paranoid delusions. Endorses no homicidality and no suicidality. Does not appear to be responding to internal stimuli. Insight: improving Judgment: improving Exam Physical Exam Vital Signs: Temp Pulse Resp BP Pulse Ox O2 Del Method 97.4 F L 45 L 16 136/62 96 Room Air 06/01/22 15:26 06/02/22 07:30 06/02/22 07:30 06/02/22 07:30 06/02/22 07:30 06/02/22 07:30 Objective Labs Labs: Abnormal Labs 06/01/22 06/02/22 06/02/22 05:52 06:09 06:09 RBC 2.97 L Hgb 8.9 L Hct 26.8 L Plt Count 131 L BUN 27 H Creatinine 1.33 H Iron Saturation 17.6 L Folate 5.6 L Assessment/Plan Assessment/Plan (1) Schizophrenia: Code(s): F20.9 - Schizophrenia, unspecified Status: Acute Plan Patient presenting reported feeling better. -Continue risperidone 1 mg po q daily and 3 mg po hs. -CBC, BMP labs to monitor signs of infection, electrolytes -Fall risk; continue safety precautions -Continue to monitor mental status -Risks, benefits, and alternatives of treatment explained -Consult hospitalist for underlying medical problems. Documented By: Marty Mclean MD 3 0920 Signed By: <Electronically signed by Marty Mclean MD> 06/02/22 0923 [facility] Work Phone: 1(283) 912-989612-31-2022 Progress note Author Marty brewster [facility] June 01, 2022 8:51am Note Date/Time June 01, 2022 8:50am [facility] [address] [place] [address] Psychiatry Progress Note Signed Patient: Marley Osborn MR#: [id number] : 1955 Acct:[id number] Age/Sex: 66 / F Adm Date: 2 Loc: Room: [address] [place] [address] Type : ADM IN Attending Dr: Reggie Quintana MD Copies to: ~ Date of Service: 06/01/2022 Subjective Subjective Narrative: Ms. Osborn is a 66 year old female transferred from [facility] where she was admitted 05/27 for UTI with confusion, dysphagia, and incomprehensible, slurred speech. Marley endorses visual hallucinations of flashes of shadows and no one at the door . She hears voices calling her name but can sometimes ignore them. She has been feeling anxious lately about something bad happening to her . She has been feeling very tired recently and says she goes into a sleep so deep her Rigoberto has difficulty waking her. Her most recent potassium is 3.2 MSE: Appearance: grossly normal. Fair grooming and hygiene, calm, cooperative. Spends most of interview with eyes closed. Falls asleep mid-sentence. Poor eye contact. Normal psychomotor activity. Mental Status: mental status grossly abnormal Mood: dysthymic Affect: flat affect Speech and Movement: speech slow and sometimes slurred. Many sentences are incomplete, many phrases incomprehensible Attitude: cooperative Thought Process: slowed, disorganized Thought Content: Does not endorse paranoid delusions. Endorses audio and visual hallucinations, no homicidality and no suicidality. Does not appear to be responding to internal stimuli. Insight: limited Judgment: limited Exam Physical Exam Vital Signs: Temp Pulse Resp BP Pulse Ox O2 Del Method 97.4 F L 50 L 18 112/73 98 Room Air 06/01/22 07:30 06/01/22 07:30 06/01/22 07:30 06/01/22 07:30 06/01/22 07:30 06/01/22 07:30 Objective Labs Labs: Abnormal Labs 05/31/22 06/01/22 06/01/22 21:37 05:52 05:52 RBC 2.97 L Hgb 8.9 L Hct 27.0 L Plt Count 95 L Potassium 3.2 L BUN 25 H Creatinine 1.12 H Urine Occult Blood Trace H Ur Leukocyte Esterase 2+ H Urine WBC 10-19 H Ur Squamous Epith Cells 3-4 H Urine Bacteria Rare H Hyaline Casts 10-19 H Fine Granular Casts 1-2 H Urine Mucus 4+ A Assessment/Plan Assessment/Plan (1) Schizophrenia: Code(s): F20.9 - Schizophrenia, unspecified Status: Acute Plan Patient presenting due to worsened hallucinations, aggressive behavior, dysphagia, and speech difficulty. History of schizophrenia with multiple hospitalizations. [place] ED ruled out CVA with negative head CT and negative head/neck CTA. -Continue risperidone per -Given recent UTI with altered mental status, repeat UA today. Received IV levaquin while at [place] beginning 05/27. Cultures pending at time of transfer. -CBC, BMP labs to monitor signs of infection, electrolytes -Fall risk; continue safety precautions -Continue to monitor mental status -Risks, benefits, and alternatives of treatment explained -Consult hospitalist for underlying medical problems. Documented By: Marty Mclean MD 2 0849 Signed By: <Electronically signed by Marty Mclean MD> 06/01/22 0851 [facility] Work Phone: 1(598) 563-547812-30-2022 History and physical note Author Reggie Quintana [facility] May 31, 2022 1:20pm Note Date/Time May 31, 2022 11:07am [facility] [address] [place] [address] Psychiatry H&P Signed Patient: Marley Osborn MR#: [id number] : 1955 Acct:[id number] Age/Sex: 66 / F Adm Date: 2 Loc: Room: [address] [place] [address] Type: ADM IN Attending Dr: Reggie Quintana MD Copies to: MD Melva Noel MD Rebecca Howard, MD, RES~ Date of Service: 05/31/2022 HPI History of Present Illness History of present illness: Ms. Osborn is a 66 year old female transferred from [facility] where she was admitted 05/27 for UTI with confusion, dysphagia, and incomprehensible, slurred speech. According to nursing admit notes, she has been displaying more aggressive behavior hitting , jumping on bed, and breaking things at home. She has reportedly had hallucinations since March. Her outpatient psychiatrist increased her risperidone 2-3 months ago in response to these symptoms. Reported discharge from [facility] 3 weeks ago; I cannot see record of this. She has fair insight into her diagnosis of schizophrenia and her past hospitalizations and can accurately name her medication allergies. However, she does not appear to be a reliable historian for recent events. She does not recognize recent aggression or changes to her behavior. She states she has been on Risperidone since 1811 and is unable to describe recent medication changes. Interview is limited by excessive patient sleepiness. She states her hallucinations have returned in the past year and only worsened in the past week. Marley endorses visual hallucinations of flashes of shadows and no one at the door . She hears voices calling her name but can sometimes ignore them. She has been feeling anxious lately about something bad happening to her . She has been feeling very tired recently and says she goes intoa sleep so deep her Rigoberto has difficulty waking her. She endorses weaknessbut denies dizziness. Denies current or past thoughts of self-harm. Past psych history: Schizophrenia Past hospitalizations: Reported several hospitalizations Past suicide attempts: Denies Family psych history: depression, early dementia Previous medications: unable to accurately assess. According to transfer paperwork, she had been on multiple medications but was weaned off to only risperidone for the past 5 years. Alcohol and drug use: Denies tobacco or recreational drug use. Endorses one alcoholic beverage per week Living: with Rigoberto in apartment complex MSE: Appearance: grossly normal. Fair grooming and hygiene, calm, cooperative. Spends most of interview with eyes closed. Falls asleep mid-sentence. Poor eye contact. Normal psychomotor activity. Mental Status: mental status grossly abnormal Mood: dysthymic Affect: flat affect Speech and Movement: speech slow and sometimes slurred. Many sentences are incomplete, many phrases incomprehensible Attitude: cooperative Thought Process: slowed, disorganized Thought Content: Does not endorse paranoid delusions. Endorses audio and visual hallucinations, no homicidality and no suicidality. Does not appear to be responding to internal stimuli. Insight: limited Judgment: limited Review of Systems: limited due to patient's current cognitive status Constitutional: Pt endorses weakness that makes it hard to walk Neuro: Denies dizziness/lightheadedness. HEENT: Denies vision/hearing changes. Physical exam limited due to patient's current cognitive status General: not in any acute distress Skin: intact HEENT: head atraumatic, face symmetrical. Pulm: Breathing normally without excessive effort Cardio: Regular rate and rhythm Abdomen: Normal inspection Musculoskeletal: Moves all extremities Neuro: Pt alert, oriented to self and situation. Not oriented to time; states mother in 1913 . Fall precautions in place CNII: Visual hurtado intact CNIII,IV,: EOM intact, no nystagmus. CNVIII: Hearing intact bilaterally. CNXII: Tongue protrusion midline Patient was personally seen by me on the day of the encounter. I reviewed the history and performed the freitas elements of the physical examination. I formulated the plan of care and confirmed this with the resident as noted below. Patient presenting due to concern for altered mental status and hallucinations. Continues to report hallucinations. Interview somewhat limited due to cognitionissues. She also reported that she has been feeling shaky. PMFSH Vaccinated for COVID-19?: No Medical History (Updated 05/31/22 @ 12:25 by Kassandra Vasquez MD, RES) Schizophrenia Social History Smoking Status: Never smoker Substance Use Type: None Meds Medications and Allergies Allergies amoxicillin Allergy (Verified 05/30/22 17:14) Hives cephalexin [From Keflex] Allergy (Verified 05/30/22 17:20) Hives Sulfa (Sulfonamide Antibiotics) Allergy (Verified 05/30/22 17:20) Hives lactose Adverse Reaction (Verified 05/30/22 17:20) Diarrhea Home Medications amitriptyline 10 mg tablet 10 mg PO HS 05/30/22 [History Confirmed 05/30/22] aripiprazole 5 mg tablet 5 mg PO DAILY 05/30/22 [History Confirmed 05/30/22] bisoprolol 2.5 mg-hydrochlorothiazide 6.25 mg tablet 1 tab PO DAILY 05/30/22 [History Confirmed 05/30/22] risperidone 0.5 mg tablet 0.5 mg PO HS 05/30/22 [History Confirmed 05/30/22] risperidone 2 mg tablet 2 mg PO HS 05/30/22 [History Confirmed 05/30/22] Exam Physical Exam Vital Signs: Temp Pulse Resp BP Pulse Ox O2 Del Method 98.0 F 45 L 16 153/87 H 95 Room Air 05/30/22 20:00 05/31/22 07:30 05/31/22 07:30 05/31/22 07:30 05/31/22 07:30 05/31/22 07:30 Assessment/Plan (1) Schizophrenia: Code(s): F20.9 - Schizophrenia, unspecified Status: Acute Plan Patient presenting due to worsened hallucinations, aggressive behavior, dysphagia, and speech difficulty. History of schizophrenia with multiple hospitalizations. [place] ED ruled out CVA with negative head CT and negative head/neck CTA. -Restarted home risperidone, dose increased to 3mg. To increase to twice daily beginning tomorrow. -Discontinued home Abilify for concerns of polypharmacy. -Given recent UTI with altered mental status, repeat UA today. Received IV levaquin while at [place] beginning 05/27. Cultures pending at time of transfer. -CBC, BMP labs to monitor signs of infection, electrolytes -Fall risk; continue safety precautions -Continue to monitor mental status -Risks, benefits, and alternatives of treatment explained Documented By: Reggie Quintana MD 05/31/22 1054 Signed By: <Electronically signed by Reggie Quintana MD> 05/31/22 1320 <Electronically signed by MD TARA Vasquez> 05/31/22 1226 [facility] Work Phone: Discharge summary Author Reggie Quintana [facility] June 18, 2022 2:21pm Note Date/Time June 18, 2022 2 :21pm [facility] [address] [place] [address] Discharge Summary Signed Patient: Marley Osborn MR#: [id number] : 1955 Acct:[id number] Age/Sex: 66 / F Adm Date: 2 Loc: Room: [address] [place] [address]: Reggie Quintana MD Copies to: MD Melva Noel MD~ Providers Date of Discharge: 06/18/22 Discharging Provider: Reggie Quintana Primary Care Provider: Melva Escobedo Consults: 05/31/22 10:32 OT [Consult to Occupational Therapy] Routine PT [Consult to Physical Therapy] Routine 06/15/22 07:59 Consult to Gynecology Routine Discharge Diagnosis (1) Schizophrenia: (2) Neurocognitive disorder: Final Diagnosis Final Discharge Diagnosis: Schizophrenia Major neurocognitive disorder Summary Hospital Course Hospital course: According to admission note: [facility] 66 [facility] with confusion, dysphagia, andincomprehensible, slurred speech.? According to nursing admit notes, she has been displaying more aggressive behavior hitting , jumping on bed, and breaking things at home.? She has reportedly had hallucinations since March. Her outpatient psychiatrist increased her risperidone 2-3 months ago in responseto these symptoms. Reported discharge from [facility] 3 weeks ago; I cannot see record of this. She has fair insight into her diagnosis of schizophrenia and her past hospitalizations and can accurately name her medication allergies. However, she does not appear to be a reliable historian for recent events. She does not recognize recent aggression or changes to her behavior. ? She states she has been on Risperidone since 1811 and is unable to describe recent medication changes. Interview is limited by excessive patient sleepiness. She states her hallucinations have returned in the past year and only worsened in the past week. Marley endorses visual hallucinations of flashes of shadows and no one at the door . She hears voices calling her name but can sometimes ignore them.? She has been feeling anxious lately about something bad happening to her .? She has been feeling very tired recently and says she goes intoa sleep so deep her Rigoberto has difficulty waking her. She endorses weaknessbut denies dizziness. Denies current or past thoughts of self-harm. Past psych history: Schizophrenia Past hospitalizations: Reported several hospitalizations Past suicide attempts: Denies Family psych history: depression, early dementia Previous medications: unable to accurately assess. According to transfer paperwork, she had been on multiple medications but was weaned off to only risperidone for the past 5 years. Alcohol and drug use: Denies tobacco or recreational drug use. Endorses one alcoholic beverage per week Living: with Rigoberto in apartment complex Patient was continued on Risperdal and the dose was increased during hospitalization. Geodon was also added to help manage her symptoms. Her symptoms of psychosis gradually improved as time went on. She became less disorganized and started to become more linear. She tolerated her medications and did not report any side effects. She had an episode of altered mental status which was likely attributed to a vaginitis. She did not exhibit any behavior concerning for suicidality during hospital course. Did not have any conflict with peers or others. As her symptoms became better arrangements were made to have her follow-up with outpatient services. We attempted to get her placed but she did not have any skeletal needs and appeal was denied by insurance company. Condition Condition at Discharge: Stable Status at Discharge Cognitive/behavioral status at discharge: Mental Status Exam: Appearance: grossly normal Mental Status: mental status grossly normal Mood: Euthymic mood Affect: Normal affect Speech and Movement: speech and movement normal and speech clear Attitude: cooperative Thought Process: normal Thought Content: Denied hallucinations, no homicidality and no suicidality Insight: Good Judgment: Good Functional status at discharge: uses cane/walker Overall status at discharge: patient is back to baseline Time Spent with Patient Time spent providing/coordinating discharge services (# min): 30 Diagnostic Studies Completed and Pending Studies Pending studies at discharge: 06/15/22 13:52 Vaginitis Plus (VG+) Routine Exam Physical Exam Vital Signs: Temp Pulse Resp BP Pulse Ox O2 Del Method 97.4 F L 61 18 119/73 95 Room Air 06/18/22 08:24 06/18/22 08:24 06/18/22 08:24 06/18/22 08:24 06/18/22 08:24 06/18/22 08:24 Discharge Plan Discharge Plan Patient Disposition: Home Activity: No Activity Restriction Diet: Regular Additional Instructions: Regular diet. No activity restrictions. Instructions: Schizophrenia (DC), [facility] [place] Instructions Prescriptions: New risperidone 3 mg Tablet 3 mg PO HS 15 Days Qty: 15 1RF potassium chloride [Klor-Con M20] 20 mEq Tablet,Er Particles/Crystals 20 meq PO DAILY 30 Days Qty: 30 0RF risperidone 1 mg Tablet 1 mg PO DAILY 15 Days Qty: 15 1RF ergocalciferol (vitamin D2) 1,250 mcg (50,000 unit) Capsule 1,250 mcg PO Q7D Qty: 12 0RF miconazole nitrate [Miconazole-7] 2 % Cream 1 appful vaginal QHS Qty: 45 0RF Rx Instructions: last dose 06/21/22 metronidazole 500 mg Tablet 500 mg PO BID Qty: 7 0RF ziprasidone HCl 20 mg Capsule 20 mg PO BID 30 Days Qty: 60 0RF Continued amitriptyline 10 mg tablet 10 mg PO HS bisoprolol-hydrochlorothiazide 2.5-6.25 mg tablet 1 tab PO DAILY Discontinued aripiprazole 5 mg tablet 5 mg PO DAILY Patient Comments: TAKE 1 TABLET BY MOUTH EVERY DAY risperidone 2 mg tablet 2 mg PO HS risperidone 0.5 mg tablet 0.5 mg PO HS Patient Comments: TAKE 1 TABLET DAILY AT BEDTIME WITH 2MG TABLET Rx Instructions: give with 2mg dose Other Ambulatory Orders: DME Home Medical Equipment (Routine) Timeframe: 1 Year Location: Determined by Patient Ordered By: Reggie Quintana Follow Up: [facility] [Outside] - 06/19/22 9:15 am (Case Management: Friday06/17/22 11:15am, Yusra will call you for a discharge follow up. Psychiatry: 07/02/22 at 10:30am with Dr. Lazaro) [facility] Hotline [Outside] Melva Escobedo MD [Primary Care Provider] - 06/24/22 1:30 pm (for home health referral) Documented By: Reggie Quintana MD 06/18/22 1419 Signed By: <Electronically signed by Reggie Quintana MD> 06/18/22 1421 [facility] Work Phone: Evaluation note* Diagnosis Onset Date Resolution Status AMS (altered mental status) acute Anemia acute Confusion acute HTN (hypertension) acute Hypokalemia acute Neurocognitive disorder acut e Schizophrenia acute UTI (urinary tract infection) acute Vaginitis acute [facility] Work Phone: Evaluation note* Diagnosis Altered mental status, unspecified altered mental status type- Primary Hypernatremia Hyperosmolality and/or hypernatremia Urinary tract infection without hematuria, site unspecified documented in this encounter [facility] Work Phone: Hospital Discharge instructionsAmbulatory Orders* DME Home Medical Equipment Time Frame: 1 Year, Location: Determined By Patient Additional Instructions Regular diet. No activity restrictions.[facility] Work Phone: Chief Complaint and Reason for Visit Chief Complaint Schizophrenia Reason for Visit AMS (altered mental status) Anemia Confusion HTN (hypertension) Hypokalemia Neurocognitive disorder Schizophrenia UTI (urinary tract infection) Vaginitis Advance Directives No Advanced Directives Records Found Advance Directive Response Recorded Date/ Time Advance Directives No May 2:56pm Summary Purpose Family History No Family History Records FoundNo Family History Records FoundNo Family History Records FoundNo Family History Records FoundNo Family History Records FoundNo Family History Records FoundNo Family History Records Found Additional Source Comments Care Teams (unrecognized sec tion and content) Team Status: Inactive Member Role Status Dates Melva Escobedo MD Primary Care Provider Active Reggie Quintana MD Admit Provider, Attending Provider Active Judith Cordoba MD Other Provider Active Team Status: Active Member Role Status Dates Melva Escobedo MD Primary Care Provider Active Legal Specialist Relationship Specialty Start Date End Date Jamil Lundberg MD [address] [place] [address] PCP - General Psychiatry 08/25/22 Legal Specialist Relationship Specialty Start Date End Date Jamil Lundberg MD [address] [place] [address] PCP - General Psychiatry 08/25/22 Legal Specialist Relationship Specialty Start Date End Date Jamil Lundberg MD [address] [place] [address] PCP - General Psychiatry 08/25/22 Legal Specialist Relationship Specialty Start Date End Date Jamil Lundberg MD [address] [place] [address] PCP - General Psychiatry 08/25/22 Legal Specialist Relationship Specialty Start Date End Date Jamil Lundberg MD [address] [place] [address] PCP - General Psychiatry 08/25/22 Legal Specialist Relationship Specialty Start Date End Date Jamil Lundberg MD [address] [place] [address] PCP - General Psychiatry 08/25/22 INFORMATION SOURCE (unrecogn ized section and content) DATE CREATED AUTHOR 09/17/2022 [facility] DATE CREATED AUTHOR AUTHOR'S ORGANIZ ATION 10/10/2022 [facility] DATE CREATED AUTHOR AUTHOR'S ORGANIZ ATION 10/11/2022 [facility] DATE CREATED AUTHOR AUTHOR'S ORGANIZ ATION 10/15/2022 [facility] DATE CREATED AUTHOR AUTHOR'S ORGANIZ ATION 03/08/2023 [facility] DATE CREATED AUTHOR AUTHOR'S ORGANIZ ATION 04/30/2023 [facility] DATE CREATED AUTHOR AUTHOR'S ORGANIZ ATION 05/15/2023 [facility] Reason for Visit (unrecogniz ed section and content) Reason Comments Altered Mental Status Per meghan Guillen. Given multiple liters of fluid, pt continues altered. Scheduled Active and Recently Administ ered Medications (unrecognized section and content) Medication Order 10/07/2022 10/08/2022 10/09/2022 ciprofloxacin (CIPRO) IVPB 400 mg (COMPLETED) 400 mg, IntraVENous, ONCE, 1 dose, On Fri10/08/22 at 1630, Antimicrobial Indications: Urinary Tract Infection 1628 (New Bag - Provider: Hafsa Hermosillo RN) 0557 (Stopped - Provider: Ifeoma Montana RN - Comment: Prior to this RN arrival) Continuous Medication Order 10/07/2022 10/08/2022 10/09/2022 dextrose 5 % in lactated ringers infusion IntraVENous, at 100 mL/hr, CONTINUOUS, Starting on Fri10/08/22 at 1700 1729 (New Bag - Provider: Hafsa Hermosillo RN) 0800 (Patient Transferred to Other Facility - Provider: Johanne Conroy RN) FOR RECORDS PERTAINING TO PATIENTS WHO ARE OR HAVE BEEN ENROLLED IN A CHEMICAL DEPENDENCY/SUBSTANCEABUSE PROGRAM, SOME INFORMATION MAY BE OMITTED. This clinical summary was aggregated from multiple sources. Caution should be exercised in using it in the provision of clinical care. This summary normalizes information from multiple sources, and as a consequence, information in this document may materially change the coding, format and clinical context of patient data. In addition, data may be omitted in some cases. CLINICAL DECISIONS SHOULD BE BASED ON THE PRIMARY CLINICAL RECORDS. [facility]. provides no warranty or guarantee of the accuracy or completeness of information in this document.
== END 2023-05-01 10:02 | disposition home or self-care (01) ==
LOC: MAMMO 10:01
PROVIDERS: PCP Nurse Practitioner; Visit Provider Nurse Practitioner
DX: R92.8 Other abnormal and inconclusive findings on diagnostic imaging of breast (principal); Z80.3 Family history of malignant neoplasm of breast; Z80.42 Family history of malignant neoplasm of prostate; Z80.0 Family history of malignant neoplasm of digestive organs; Z80.1 Family history of malignant neoplasm of trachea, bronchus and lung; Z80.8 Family history of malignant neoplasm of other organs or systems; N63.12 Unspecified lump in the right breast, upper inner quadrant
CPT/HCPCS: 76642; 77065

== ENCOUNTER 2023-05-05 10:10 | Day surgery (SDC) | payer MEDICARE, SELFPAY ==
--- NOTE | 2023-05-05 10:19 | US_ITS ---
[address] [address] Patient Name: MARLEY OSBORN MRN: [id number] date: 1955 Sex: F Assigned Patient Location: [place] Current Patient Location: [place] Accession/Order Number: [id number] Exam Date: 05/05/2023 10:20 Report Date: 05/05/2023 11:48 At the request of: KATYA WEAVER Procedure: US breast vac bx w/ clip RT EXAM: US breast vac bx w/ clip RT HISTORY: Right Breast Mass COMPARISON: Ultrasound breast right 05/01/2023, diagnostic mammography right 05/01/2023 TECHNIQUE: After obtaining informed consent, ultrasound-guided biopsy was performed in the usual sterile manner. The location of the biopsy was then marked as indicated below. FINDINGS: Specimen #, Location: 3 core samples; 4:00 right breast irregular, slightly lobular mass. Biopsy Needle: 13 gauge vacuum core biopsy needle. Marker(s): A single metallic marker was placed in the appropriate targeted location. Medication: Buffered 1% Lidocaine with epinephrine administered locally. Complications: None. Pathology: Pending. US/US breast vac bx w/ clip RT IMPRESSION: 1. Uneventful ultrasound-guided breast biopsy. 2. Pathology results are pending. An addendum to this report will be provided after pathology results are available. Electronically authenticated by: DENNIS GALEAS Date: 05/05/2023 11:48
--- NOTE | 2023-05-05 10:19 | MM_ITS ---
Patient Name: MARLEY OSBORN MR#: [id number] : 1955 Exam Date: 05/05/2023 Ordering Doctor: MRS. KATYA WAEVER . This report includes an Addendum and supersedes previous reports for this exam. RADIOLOGY REPORT PROCEDURE: MM POST BIOPSY RT COMPARISON: MM DIAGNOSTIC MAMMO UNILAT RT, 05/01/2023. MM TOMOSYNTHESIS SCREENING BI, 04/11/2023. MG MAMM SCREEN 3D CHANA CAD, 04/17/2022. MG MAMM SCREEN 3D CHANA CAD, 04/16/2021. INDICATIONS: Right Breast Mass BREAST COMPOSITION: Heterogeneously dense,which may obscure small masses. FINDINGS: DIAGNOSTIC CATEGORY 4--SUSPICIOUS FOR MALIGNANCY. FINDING DOES NOT EXHIBIT CLASSIC FINDINGS OF BREAST CANCER: BIOPSY MARKER: A metallic marker has been placed in the lower-inner quadrant of the right breast. BREAST FINDINGS: The marker clip appears deeper and slightly more posterior within the medial right breasts compared to the lesion seen on mammography. While the biopsied lesion seen via ultrasound is suspicious, it does not appear to correspond to the suspicious lesion seen via mammography. Stereotactic guided biopsy of the suspicious mammographic lesion is recommended. RECOMMENDATIONS: STEREOTACTIC BREAST BIOPSY: RIGHT BREAST Dictated by: Myles Abraham M.D. on 05/06/2023 at 11:39 Approved by: Myles Abraham M.D. on 05/06/2023 at 12:12 ADDENDUM: FINDINGS: DIAGNOSTIC CATEGORY 0--INCOMPLETE: NEED ADDITIONAL IMAGING EVALUATION. RECOMMENDATIONS: SHORT TERM FOLLOW-UP DIAGNOSTIC MAMMOGRAM RIGHT BREAST IN 1 MONTHS. (Diagnostic mammography of right breast with tomographic views to evaluate for persistence of spiculated lesion versus post biopsy changes involving the 8 mm lesion within the upper inner quadrant. If ultrasound biopsy of the lesion cannot be proven than stereotactic guided biopsy is recommended.) Dictated by: Myles Abraham M.D. on 05/22/2023 at 09:10 Approved by: Myles Abraham M.D. on 05/22/2023 at 09:16
[2023-05-05 10:25] VITALS: BP 135/66; PULSE 68; O2SAT 98
[2023-05-05] MEDS: LIDOCAINE HCL 10 ML, SODIUM BICARBONATE 1 MEQ INJ (10:25)
[2023-05-05] MEDS: LIDOCAINE HCL/EPINEPHRINE 10 ML, SODIUM BICARBONATE 1 MEQ INJ (11:15)
--- NOTE | 2023-05-05 14:53 | SUR.PREOP ---
05/01/23 Pt and spouse instructed on procedure, date, time, and prep.
[2023-05-05 15:06] VITALS: BMI 26.1
== END 2023-05-05 11:50 | disposition home or self-care (01) ==
LOC: US 10:10
PROVIDERS: Radiology Diagnostic Radiology; PCP Nurse Practitioner; Visit Provider Nurse Practitioner
DX: D24.1 Benign neoplasm of right breast (principal)
CPT/HCPCS: 19083; 77065; 88305

== ENCOUNTER 2023-07-02 19:48 | Outpatient (OUT) | payer MEDICARE, SELFPAY ==
--- OUTSIDE RECORDS SUMMARY | 2023-07-02 19:52 | XMS_ITS | CCD ---
Author Name Unknown Address [address] [place] [address] Organization [facility] Care Team Providers Care Elder Assistant Name Role Phone MD Melva Escobedo Primary Care Provider MD Reggie Quintana Admit Provider [phone] MD Reggie Quintana Attending Provider [phone] MD Judith Cordoba Other Provider [phone] Jamil Lundberg MD Primary Care Provider [...] .CUCO Consulting Unavailable ESCOBEDO ., DR MELVA Laoby Primary Care Unavailable HAY ., DR TENORIO [...] GRECHNY .SETH Consulting UnavailDENNIS Kate Consulting Unavailable GUZMAN, ALYX Consulting Unavailable MICHELE LOZANO Consulting Unavailable RUCHI TRIMBLE Consulting Unavailable SORAYA ., WILLIAMS Consulting Unavailable ESCOBEDO ., DR MELVA Laboy Primary Care Unavailable FAWWAD, SANTAMARIA H Attending Unavailable FAWWAD, SANTAMARIA H Admitting Unavailable FRANSISCO DE LA CRUZ Consulting Unavailable FAWALT, SANTAMARIA H Consulting Unavailable GAUTAMTHANIA SALAZAR Consulting Unavailable WILLY COBB Consulting Unavailable TATUM WHEAT Attending Unavailable TATUM [...] Unavailable HAY ., DR TENORIO Consulting Unavailable CAIOWDARRELL, SHAIKH Ingris Consulting Unavailable JEFF OAKES Consulting Unavailable ESCOBEDO ., DR MELVA Laboy Consulting Unavailable ESCOBEDO ., DR MELVA Laboy Attending Unavailable ESCOBEDO ., DR MELVA Laboy Primary Care Unavailable ESCOBEDO ., DR MELVA Laboy Admitting Unavailable HOLLYWOOD, DR KAYLEY Snow Consulting Unavailable ESCOBEDO ., [...] MICHELE Consulting Unavailable MICHELE LOZANO Attending Unavailable BLAKE, MICHELE Admitting Unavailable ESCOBEDO ., DR MELVA Laboy [...] Unavailable Ahmed, Irfan Primary Care Unavailable Frank TANKER SERVICE ATTENDANT-ADAPTED PHYSICAL EDUCATION TEACHER, Malissa Soto Consulting Un available Alexandra ROPER, Louie Freeman Admitting Unavailable Alexandra ROPER, Louie Fereman Attending Unavailable Luz TANKER SERVICE ATTENDANT-ADAPTED PHYSICAL EDUCATION TEACHER, Cintia Rincon Consulting Unavailable Shay TANKER SERVICE ATTENDANT-ADAPTED PHYSICAL EDUCATION TEACHER, Rachel Delcid Consulting Margoth anusha LaMgracy, Cody Francis Consulting Unavailab shira Casas MD, Kei Veloz Consulting Unavailabl e Ahmed, Irfan Consulting Unavailable JOSEPH DOMINGUEZ Attending Unavailable Judith Cordoba Consulting Unavailable Melva Escobedo Primary Care Unavailable Natalie Quintanami Admitting Unavailable Natalie Quintanami Attending Unavailable Marty Mclean Admitting Unavailab Marty Ames Attending Unavailab Melva Nunn Primary Care Unavailable MELVA ESCOBEDO Attending Unavailable EzequielKeya jimenez Attending Unavailable EzequielKeya Attending Unavailable MELVA ESCOBEDO Attending Unavailable EzequielKeya jimenez Attending Unavailable EzequielKeya Attending Unavailable EzequielKeya Attending Unavailable MELVA ESCOBEDO Attending Unavailable Keya Nieves Primary Care Physician Allergies Allergy Classification Reported Allergen(s) Allergy Type Date of Onset Reaction(s) Facility (4 sources) Amoxicillin; Translations: [Amoxicillin] Drug Allergy 5 [facility] (5 sources) Cephalexin; Translations: [CEPHALEXIN] Drug Allergy 2 [facility] (3 sources) Lactose; Translations: [lactose] Drug Allergy 5 [facility] (2 sources) Sulfonamides (Antibiotic); Translations: [Sulfa (Sulfonamide Antibiotics)] Allergy to substance 2 [facility] (4 sources) Penicillins; Translations: [PENICILLINS] Propensity to adverse reactions to drug (disorder) 3 [facility] (4 sources) Sulfamethoxazole; Translations: [SULFAMETHOXAZOLE ] Drug Allergy 3 [facility] (3 sources) Cephalexin; Translations: [Keflex] Drug Allergy 5 [facility] (1 source) Sulfonamides (Antibiotic) Drug allergy (disorder) [address] [facility] Rep[facility] (1 source) Sulfonamides (Antibiotic); Translations: [sulfa drugs] Propensity to adverse reactions to drug (disorder) [facility] Repository Medications Current Medications Medication Drug Class(es) Dates Sig (Normalized) Sig (Original) Acetaminophen (3 sources) Start: 02-21-2023 acetaminophen 500 mg, q6hr, PRN as needed for pain, Refills(s) 0 Start Date: 02/21/23 Status: Ordered take 1 tablet by hubert th every six hours as needed for pain acetaminophen (TYLENOL) 500 MG tablet Ta ke 1 tablet by mouth every 6 hours as needed for Pain 0 Active alendronic acid 70 mg oral tablet (1 source) Bisphosphonate Start: 04-14-2023 Fosamax 70 mg Tab 70 mg = 1 tab(s), Oral, q7day, # 12 tab(s), Refills(s) 3, Pharmacy: [facility]/pharmacy #[id number], 153, cm, 02/21/23 11:33:00 EDT, Height/Length Dosing, 74.6, kg, 02/21/23 11:33:00 EDT, Weight Dosing Start Date: 04/14/23 Status: Ordered amitriptyline hydrochloride 10 mg oral tablet (1 source) Tricyclic Antidepressant Start: 05-30-2022 take 10 mg by mouth at bedtime [...] by mouth 2 times daily 0 Active bisacodyl 10 mg rectal suppository (1 source) Stimulant Laxative Start: 02-21-2023 bisacodyl 10 mg, Rectal, PRN as needed for constipation, Refills(s) 0 Start Date: 02/21/23 Status: Ordered bisoprolol fumarate 2.5 mg / hydroCHLOROthiazide 6.25 mg oral tablet (1 source) Thiazide Diuretic, beta-Adrenergic Js Start: 05-30-2022 take 1 tablet by mouth once daily Bisoprolol-Hydrochl orothiazide Active 1 TAB PO Daily May 30, 2022 12:00am calcium chloride 0.001 meq/ml / glucose 50 mg/ml / potassium chloride 0.004 meq/ml / sodium chloride 0.103 meq/ml / sodium lactate 0.028 meq/ml injectable solution (1 source) Start: 10-08-2022 dextrose 5 % in lactated ringers infusion [...] capsule (1 source) Provitamin D2 Compound Start: 06-18-2022 take 1250 ug by mouth every week Ergocalciferol (Vitamin D2) Active 1250 MCG PO Q7D June 18, 2022 12:00am haloperidol 5 mg oral tablet (3 sources) Typical Antipsychotic Start: 02-04-2023 haloperidol 5 mg Tab 5 mg = 1 tab(s), Oral, BID, changed to BID 06/11/23, # 270 tab(s), Refills(s) 1, Pharmacy: [facility]/pharmacy #[id number], 154.9, cm, 02/04/23 10:18:00 EDT, Height/Length Dosing, 75, kg, 02/04/23 10:18:00 EDT, Weight Dosing Start Date: 02/04/23 Status: Ordered haloperidol lact ate (HALDOL) 5 MG/ML injection Inject into the muscle every 6 hours as needed for Agitation 0 Active Handicap Placard (1 source) Start: 02-21-2023 Handicap Placard Handicap Placard, See Instructions, 1 EA, 0, 5 years, Supply Start Date: 02/21/23 Status: Ordered hydroCHLOROthiazide 12.5 mg oral tablet (2 sources) Thiazide Diuretic take 0.5 tablet by mouth once daily as needed hydroCHLOROthiazide (HYDRODIURIL) 12.5 MG tablet Take 0.5 tablets by mouth daily as needed 0 Active levothyroxine sodium 0.05 mg oral tablet (3 sources) l-Thyroxine Start: 02-04-2023 take 1 tablet by mouth once daily levothyroxine 50 mcg (0.05 mg) Tab 50 mcg = 1 tab(s), Oral, Daily, # 90 tab(s), Refills(s) 1, Pharmacy: [facility]/pharmacy #[id number], 154.9, cm, 02/04/23 10:18:00 EDT, Height/Length Dosing, 75, kg, 02/04/23 10:18:00 EDT, Weight Dosing Start Date: 02/04/23 Status: Ordered take 0.5 tablet by mouth once da shruti levothyroxine (SYNTHROID) 100 MCG tablet Take 0.5 [...] by mouth 2 times daily 0 Active QUEtiapine 50 mg oral tablet (1 source) Atypical Antipsychotic Start: 02-04-2023 take 1 tablet by mouth once daily quetiapine 50 mg oral tablet 50 mg = 1 tab(s), Oral, Daily, # 90 tab(s), Refills(s) 1, Pharmacy: [facility]/pharmacy #[id number], 154.9, cm, 02/04/23 10:18:00 EDT, Height/Length Dosing, 75, kg, 02/04/23 10:18:00 EDT, Weight Dosing Start Date: 02/04/23 Status: Ordered risperiDONE 3 mg oral tablet (8 sources) Atypical Antipsychotic Start: 06-11-2022 take 1 mg by mouth once daily Risperidone Active 1 MG PO Daily June 11, 2022 12:00am Start: 06-11-2022 take 3 mg by mouth at bedtime Risperidone Active 3 MG PO Bedtime June 11, 2022 12:00am Start: 05-30-2022 End: [...] the muscle every 14 days 0 Active sennosides, residential 8.6 mg oral tablet (1 source) Start: 06-11-2023 take 1 tablet by mouth twice daily senna 8.6 mg Tab 8.6 mg = 1 tab(s), Oral, BID, # 60 tab(s), Refills(s) 5, Pharmacy: [facility]/pharmacy #[id number], 153, cm, 02/21/23 11:33:00 EDT, Height/Length Dosing, 74.6, kg, 02/21/23 11:33:00 EDT, Weight Dosing Start Date: 06/11/23 Status: Ordered ziprasidone 20 mg oral capsule (1 source) Atypical Antipsychotic Start: 06-18-2022 take 20 mg by mouth twice daily Ziprasidone Hcl Active 20 MG PO Twice daily 60 30 June 18, 2022 12:00am Completed/Discontinued Medications Medication [...] Active Problems Problem Classification Problem Date Documented Da te Episodic/Chronic Anxiety disorders (2 sources) Anxiety disorder, unspecified; Translations: [Anxiety disorder] Onset: 10-09-2022 08-13-2022 Chronic Bacterial infection; unspecified site (2 sources) [...] Onset: 10-09-2022 Chronic Disorders of lipid metabolism (2 sources) Hyperlipidemia, unspecified; Translations: [Hyperlipidemia] Onset: 04-29-2022 08-13-2022 Chronic Essential hypertension (11 sources) Hypertensive disorder; Translations: [Essential (primary) hypertension] Onset: 12-12-2021 06-01-2022 Chronic Hypertension with complications and secondary hypertension (1 source) Hypertensive chronic kidney disease with stage 1 through stage 4 chronic kidney disease, or unspecified chronic kidney disease; Translations: [HTN CKD W/STAGE 1-4 CKD/UNS CKD] Onset: 09-12-2022 Chronic Malaise and fatigue (7 sources) Other fatigue; Translations: [Weakness] Onset: 05-30-2022 Episodic Menopausal disorders (1 source) Hormone replacement therapy; Translations: [HORMONE REPLACEMENT THERAPY] Onset: 10-09-2022 Episodic Mood disorders (2 sources) Depressive disorder; Translations: [Major depression with psychotic features] 08-09-2022 Chronic Mood disorders (1 source) Mood disorders; Translations: [DEPRESSION UNSPECIFIED] Onset: 10-09-2022 Nonspecific chest pain (2 sources) Other chest pain; Translations: [Other chest pain] Onset: 09-16-2022 Episodic Other aftercare (5 sources) 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; Translations: [[facility] CURRENT DRUG THERAPY] Onset: 11-29-2021 Episodic Other bone disease and musculoskeletal deformities (1 source) Osteopenia 04-14-2023 Episodic Other connective tissue disease (1 source) Spasm 08-13-2022 Episodic Other endocrine disorders (1 source) Hypoglycemia, unspecified; Translations: [HYPOGLYCEMIA UNSPECIFIED] Onset: 06-10-2022 Chronic Other gastrointestinal disorders (1 source) Irritable bowel syndrome Onset: 11-30-1988 08-09-2022 Chronic Other nervous system disorders (1 source) [...] 10-09-2022 Episodic Residual codes; unclassified (1 source) Obstructive sleep apnea syndrome 08-13-2022 Chronic Residual codes; unclassified (1 source) Confusional state; [...] NOT W/LOW ENVIR TEMP] Onset: 09-12-2022 Episodic Residual codes; unclassified (1 source) Amnesia 08-13-2022 Episodic Schizophrenia and other psychotic disorders (7 sources) Schizophrenia; Translations: [Schizophrenia, unspecified] Onset: 06-02-2012 05-31-2022 Chronic Thyroid disorders (5 sources) Hypothyroidism, unspecified; Translations: [Hypothyroidism] Onset: 08-27-2022 Chronic Unclassified (4 sources) CONTACT W/AND (SUSP) EXPOS COVID-19; Translations: [CONTACT W/AND (SUSP) EXPOS COVID-19] Onset: 05-11-2022 Unclassified (1 source) CHRN KIDNEY DISEASE STG 3 UNSP; Translations: [CHRN KIDNEY DISEASE STG 3 UNSP] Onset: 06-10-2022 Unclassified (2 sources) Patient encounter status 06-11-2023 Viral infection (1 source) COVID-19; Translations: [COVID-19] [...] Translations: [Acute vaginitis] Onset: 05-30-2022 06-15-2022 Episodic Open wounds of head; neck; and [...] neoplasm of digestive organs; Translations: [FAM HX MALARUN NEOPLASM DIGESTIV ORGN] Onset: 06-10-2022 Episodic Residual [...] Results Test Name Value Interpretation Reference Range Facility CHEMISTRYOrdered By: SYSTEM SYSTEM on 06-11-2023 Albumin [Mass/Vol] 4.1 g/dL Normal 3.3 - 5.0 gm/dL [facility] Albumin/Globulin [Mass ratio] 1.7 {ratio} Normal 1.1 - 2.2 [facility] Alk Phos 99 [iU]/d High 21 - 98 Int._Unit/L [facility] ALT 14 [iU]/d Normal 6 - 46 Int._Unit/L [facility] Anion gap [Moles/Vol] 12 mmol/L Normal 6 - 16 mEq/L [facility] AST 15 [iU]/d Normal 5 - 43 Int._Unit/L [facility] Bili Total 0.8 mg/dL Normal 0.0 - 1.1 mg/dL [facility] Calcium [Mass/Vol] 9.5 mg/dL Normal 8.9 - 11. 1 mg/dL [facility] Chloride [Moles/Vol] 105 mmol/L Normal 101 - 1 11 mmol/L [facility] Cholesterol [Mass/Vol] 219 mg/dL High 120 - 200 mg/dL [facility] Cholesterol in HDL [Mass/Vol] 93 mg/dL Invalid Interpretation Code [facility] Comment on above: Result Comment: '>= 60 LOW RISK' '<= 40 HIGH RISK' Cholesterol in LDL [Mass/Vol] 94 mg/dL Normal <=129mg/dL [facility] Cholesterol in VLDL [Mass/Vol] 33 mg/dL Normal 7 - 40 mg/dL [facility] CO2 [Moles/Vol] 28 mmol/L Normal 21 - 31 mmol/L [facility] Creatinine [Mass/Vol] 1.2 mg/dL Normal 0.5 - 1.3 mg/dL [facility] eGFR 49 mL/min/1.73 m2 Low >=59mL/min / 1.73 m2 [facility] Free T4 [Mass/Vol] 0.95 ng/dL Normal 0.58 - 1. 64 ng/dL [facility] Globulin (S) [Mass/Vol] 2.4 g/dL Normal 1.4 - 4.0 gm/dL [facility] Glucose [Mass/Vol] 97 mg/dL Normal 55 - 199 mg/dL [facility] Potassium [Moles/Vol] 4.0 mmol/L Normal 3.5 - 5.3 mmol/L [facility] Protein [Mass/Vol] 6.5 g/dL Normal 6.0 - 7.8 gm/dL [facility] Sodium [Moles/Vol] 141 mmol/L Normal 135 - 145 mmol/L [facility] Triglyceride [Mass/Vol] 167 mg/dL High <=149mg/dL R em[facility] Chem TSH Qn 1.81 m[IU]/L Normal 0.34 - 5.60 mcIU/mL [facility] Urea nitrogen [Mass/Vol] 22 mg/dL High 5 - 21 mg/dL [facility] Urea nitrogen/Creatinine [Mass ratio] 18 mg/mg Normal 10 - 20 [facility] Vitamin D 25 Hydroxy 17.1 ng/mL Low 30.0 - 100.0 ng/mL [facility] HEMATOLOGYOrdered By: SYSTEM SYSTEM on 06-11-2023 Basophils/100 WBC (Bld) 0.6 % Normal 0.0 - 2.0 % [facility] Basophils/Leukocytes Auto (Bld) [Pure # fraction] 0.0 E9/L Normal 0.0 - 0.2 E9/L [facility] Eosinophils/100 WBC (Bld) 1.0 % Normal 0.0 - 8.0 % [facility] Eosinophils/Leukocytes Auto (Bld) [Pure # fraction] 0.1 E9/L Normal 0.0 - 0.5 E9/L [facility] Lymphocytes/100 WBC (Bld) 22.6 % Normal 14.0 - 50.0 % [facility] Lymphocytes/Leukocytes Auto (Bld) [Pure # fraction] 1.3 E9/L Normal 1.0 - 4.0 E9/L [facility] Monocytes/100 WBC (Bld) 5.5 % Normal 4.0 - 14.0 % [facility] Monocytes/Leukocytes Auto (Bld) [Pure # fraction] 0.3 E9/L Normal 0.2 - 1.0 E9/L [facility] Neutrophils/100 WBC (Bld) 70.3 % Normal 36.0 - 75.0 % [facility] Neutrophils/Leukocytes Auto (Bld) [Pure # fraction] 4.2 E9/L Normal 2.0 - 7.5 E9/L [facility] HEMATOLOGYOrdered By: Venkatesh Rust on 06-11-2023 Erythrocyte distribution width (RBC) [Ratio] 13.9 % Normal 10.9 - 14.2 % [facility] Hematocrit (Bld) [Volume fraction] 36.1 % Normal 34.0 - 46.0 % [facility] Hemoglobin (Bld) [Mass/Vol] 12.0 g/dL Normal 12.0 - 16.0 gm/dL [facility] MCH (RBC) [Entitic mass] 29.1 pg Normal 27.0 - 34.0 pg [facility] MCHC (RBC) [Mass/Vol] 33.1 g/dL Normal 31.4 - 36.0 gm/dL [facility] MCV (RBC) [Entitic vol] 87.9 fL Normal 80.0 - 100.0 fL [facility] Platelet mean volume (Bld) [Entitic vol] 7.9 fL Normal 6.4 - 10.8 fL [facility] Platelets (Bld) [#/Vol] 231.0 E9/L Normal 150. 0 - 500.0 E9/L [facility] RBC (Bld) [#/Vol] 4.1 E12/L Low 4.3 - 5.9 E12/L [facility] WBC corrected for nucl RBC Auto (Bld) [#/Vol] 5.9 E9/L Normal 4.0 - 11.0 E9/L [facility] Consultation Noteon 06-09-19 Consultation Note [id number] .00TIFF Normal [facility] RAD - Ultrasound Reporton RAD - Ultrasound Report [id number] .00TIFF Normal [facility] Pathology Noteon 05-21-2023 Pathology Note [id number]#1 .00TIFF Normal [facility] RAD - Ultrasound Reporton RAD - Ultrasound Report [id number] .00TIFF Normal [facility] Physician Orderon 05-02-2023 Physician Order [id number]#1 .00TIFF Normal [facility] Dexa Scanson 04-16-2023 Dexa Scans [id number]#1. 00TIFF Normal [facility] Lab Reportson 04-16-2023 Lab Reports [id number]#1. 00TIFF Normal [facility] Outside Mammographyon 2022 Outside Mammography [id number]#1 .00TIFF Normal [facility] Hospice Recordson 03-19-2023 Hospice Records [id number] .00TIFF Normal [facility] Ambulatory Visit Summaryon 0 02-21-2023 Ambulatory Visit Summary MARLEY OSBORN :1955 Visit Date:02/21/2023 Ambulatory Visit Instructions Your [...] Follow-Up Appointments Friday 11:00 AM EDT Where: [facility] Family Medicine Office/Clini c Noteon 02-21-2023 Family Medicine [...] of clutter to prevent tripping and/or falling. [place] Advance Directives reviewed, patient has copy at [...] this time. Colonoscopy last completed at [facility], has been requested. DEXA scan and Mammogram ordered and faxed to [facility]. Reviewed pain symptoms with patient: [...] avoid smoking. (more content not included)... Normal [facility] Comment on above: Result Comment: Elec tronically Signed By: Keya Lucas\.br\Date and Time Signed: 02/21/23 13:49 EDT\.br\Electronically Co-Signed By: Kel Mcgee\.br\Date and Time Co-Signed: 02/21/23 12:06 EDT Patient Educationon 02-22-20 Patient Education Fall Prevention in the Home, Adult Falls can cause injuries and [...] night-lights. ? Place frequently used items in ycxq-he-lgzgh places. Lower the shelves around your home [...] the way. ? Do not use floor thai or wax that makes floors slippery. If [...] include working with a physical therapist or employment trainer to improve your strength, balance, and endurance. Where to find more information ? Centers for Disease Control and Prevention, [place]: www.cdc.gov ? National [place] [employer] Aging: www.barrera.nih.gov Contact a health care [...] care provider. (more content not included)... Normal [facility] Screenson 02-21-2023 Screens [id number] .00CD:127 Normal [facility] Ambulatory Visit Summaryon 0 02-04-2023 Ambulatory [...] Mouth 3 times a day Pickup at [facility]/pharmacy #[id number] Changed levothyroxine (levothyroxine 50 mcg (0.05 mg) Tab) 1 Tablets By Mouth Every day Pickup at [facility]/pharmacy #6177 Changed quetiapine (quetiapine 25 mg Tab) 1 Tablets By Mouth Every day Pickup at [facility]/pharmacy #6177 Changed quetiapine (quetiapine 50 mg oral tablet) 1 Tablets By Mouth Every day Pickup at [facility]/pharmacy #[id number] Changed senna (senna 8.6 mg Tab) 1 Tablets By Mouth 2 times a day Pickup at [facility]/pharmacy #6177 Pharmacy Information [facility]/pharmacy #[id number]: [address], [place] [id number] [phone] Allergies Keflex (rash) penicillins (rash) sulfamethoxazole (rash) Problems Ongoing - Any problem that you are currently receiving treatment for. Anxiety disorder HTN (hypertension) Hyperlipidemia, unspecified Loss of memory Major depression with psychotic features LISA (obstructive sleep apnea) Spasm of muscle Historical - Any problem that you are no longer receiving treatment for. Depression Hypothyroidism IBS - Irritable bowel syndrome Paranoid schizophrenia Shilo [facility] Family Medicine Office/Clini c Noteon 02-04-2023 Family Medicine Office/Clinic Note HPI Staff Marley is a 67 year old female presenting to [facility] care Establish Care: History: Any previous diagnosis: Aniety, HTN, HLD, LISA History of seeing any specialist: When was your last doctors visit: Last provider: Fanny Any recent labs: Health Maintenance UTD: Colonoscopy: Mammogram: Pelvic/Pap: Acute: Current issues/complaints: pt recently just d/c [facility] [place] 3 months, walking without walker History of Present Illness pt presents today to establish care Review of Systems PHQ Score Initial Depression [...] today to establish care. Was in a half-way for 3 months. she was in a catatonic state and her wasn't sure if she would survive. she is doing very well today. answers questions appropriately. will need refills. states that she had labs by Dr. Escobedo in June. will call [facility] for results. pt to return in June [...] TID, # 270 tab(s), Refills(s) 1, Pharmacy: [facility]/pharmacy #[id number], 154.9, cm, 02/04/23 10:18:00 EDT, Height/Length Dosing, 75, kg, 02/04/23 10:18:00 EDT, Weight Dosing levothyroxine, 50 mcg = 1 tab(s), Oral, Daily, # 90 tab(s), Refills(s) 1, [id number] 154.9, cm, 02/04/23 10:18:00 EDT, Height/Length Dosing, 75, kg, 02/04/23 10:18:00 EDT, Weight Dosing potassium chloride, 20 mEq = 1 tab(s), Oral, BID, # 180 tab(s), Refills(s) 3, [id number], 154.9, cm, 09/10/22 10:27:00 EDT, Height/Length Dosing, 76.2, kg, 09/10/22 10:27:00 EDT, Weight Dosing quetiapine, 25 mg = 1 tab(s), Oral, Daily, # 90 tab(s), Refills(s) 1, [id number], 154.9, cm, 02/04/23 10:18:00 EDT, Height/Length Dosing, 75, kg, 02/04/23 10:18:00 EDT, Weight Dosing quetiapine, 50 mg = 1 tab(s), Oral, Daily, # 90 tab(s), Refills(s) 1, [id number], 154.9, cm, 02/04/23 10:18:00 EDT, Height/Length Dosing, 75, kg, 02/04/23 10:18:00 EDT, Weight Dosing senna, 8.6 mg = 1 tab(s), Oral, BID, # 60 tab(s), Refills(s) 3, [id number] 154.9, cm, 02/04/23 10:18:00 EDT, [...] Immunizations Vaccine Date Status Comments SARS-CoV-2 (COVID-19) [id number] 03/09/2022 Recorded 2022-08-09: TPV65 influenza virus vaccine, inactivated 02/14/2022 Recorded SARS-CoV-2 (COVID-19) mRNA-1273 vaccine 03/29/2021 Recorded 2022-08-09: TPV65 influenza virus vaccine, inactivated 01/27/2021 Recorded SARS-CoV-2 ( (more content not included)... [facility] Comment on above: Result Comment: Elec tronically Signed By: Keya Lucas\.br\Date and Time Signed: 02/04/23 10:44 EDT Residential Recordson 02-04 Residential Records [id number]. 00CD:127 [facility] Transfer Inon 02-04-2023 Transfer In [id number] .00CD:127 [facility] C Bldon 10-14-2022 C Bld - ---- Final No growth at 5 days. Normal [facility] Comment on above: Performed By: #### U CI #### [address] [address] .eGFRon 10-13-2022 Estimated GFR 54 mL/min/1.73m? Low >=60 [facility] Comment on above: Result Comment: [facility] Laboratories have implemented the eGFR calculation approach [...] = years Performed By: #### E GFR ####[address] [address] CBC w/ Diffon 10-13-2022 Erythrocyte distribution width (RBC) [Ratio] 16.3 % High 11.6-14.8 [facility] Comment on above: Performed By: #### C [id number] #### [address] [place] [address] Hematocrit (Bld) [Volume fraction] 31.7 % Low 36.0-46.0 [facility] Comment on above: Performed By: #### C [id number] #### [address] [address] Hemoglobin (Bld) [Mass/Vol] 10.6 g/dL Low 12.0-16.0 [facility] Comment on above: Performed By: #### C [id number] #### [address] [address] MCH (RBC) [Entitic mass] 31.5 pg Normal 27.0-35.0 [facility] Comment on above: Performed By: #### C [id number] #### [address] [address] MCHC 33.5 % Normal 31.0-37.0 [facility] Comment on above: Performed By: #### C [id number] #### [address] [address] MCV (RBC) [Entitic vol] 94.0 fL Normal 80.0-100.0 [facility] Comment on above: Performed By: #### C D:[id number] #### [address] [address] Platelet 216 x10*3/mcL Normal 150-350 [facility] Comment on above: Performed By: #### C [id number] #### [address] [address] Platelet mean volume (Bld) [Entitic vol] 8.7 fL Normal 6.7-10.6 [facility] Comment on above: Performed By: #### C [id number] #### [address] [address] RBC 3.37 x10*6/mcL Low 3.80-5.20 [facility] Comment on above: Performed By: #### C D:[id number] #### [address] [address] WBC 6.5 x10*3/mcL Normal 4.5-11.0 [facility] Comment on above: Performed By: #### C [id number] #### [address] [address] Diff Autoon 10-13-2022 Baso Absolute 0.0 x10*3/mcL Normal 0.0-0.2 [facility] Comment on above: Performed By: #### C [id number] #### [address] [address] Basophils/100 WBC (Bld) 0.6 % Normal 0.0-1.5 [facility] Comment on above: Performed By: #### C [id number] #### [address] [address] Eos Absolute 0.1 x10*3/mcL Normal 0.0-0.4 [facility] Comment on above: Performed By: #### C D:[id number] #### [address] [address] Eosinophils/100 WBC (Bld) 2.1 % Normal 0.0-5.4 [facility] Comment on above: Performed By: #### C [id number] #### [address] [address] Lymph Absolute 0.8 x10*3/mcL Low 1.0-4.8 [facility] Comment on above: Performed By: #### C D:[id number] #### [address] [address] Lymphocytes/100 WBC (Bld) 12.1 % Low 27.2-40.8 [facility] Comment on above: Performed By: #### C D:[id number] #### [address] [address] [place] Absolute 0.4 x10*3/mcL Normal 0.1-1.1 [facility] Comment on above: Performed By: #### C D:[id number] #### [address] [address] Monocytes/100 WBC (Bld) 6.2 % Normal 3.7-11.9 [facility] Comment on above: Performed By: #### C D:[id number] #### [place] [address] Neutro Absolute 5.1 x10*3/mcL Normal 1.8-7.7 [facility] Comment on above: Performed By: #### C D:[id number] #### [place] [address] Neutro Auto 79.0 % High 47.2-70.8 [facility] Comment on above: Performed By: #### C D:[id number] #### [place] [address] Inpatient Clinical Summaryon 10-13-2022 Inpatient [place] [address] [place] [address] Clinical Summary Person Information Name: Marley Osborn Age: 66 Years : 1955 Sex: Female PCP: Jamil Lundberg MD Marital Status: Phone: PCP: [phone] Race: White Ethnicity: Not or Language: Burmese Visit Id: Visit Reason: hypernatremia, AMS Speciality: Acuity: Enc Type: Inpatient Med Service: Medicine-General Arrival: 10/09/2022 08:56:04 Discharge: Dispo Type: Address: [address] [place] [address] Diagnosis: 1:Hypernatremia; 2:Schizophrenia; 3:Hypothermia; 4:Metabolic encephalopathy; 5:Chronic [...] range between ( 27.2 and 40.8 ) [place] Auto: 6.2 % -- Normal range between [...] range between ( 36.0 and 46.0 ) [place] Absolute: 0.4 x10 MCH: 31.5 pg -- [...] Creatine Phosphokinas (more content not included)... Normal [facility] Magnesiumon 10-13-2022 Magnesium [Mass/Vol] 1.8 mg/dL Normal 1.7-2.4 [facility] Comment on above: Performed By: #### C D:[id number] #### [facility] [address] [place] [address] Nephrology Progress Noteon 0 10-13-2022 Nephrology Progress [...] Ativan, 1 mg= 0.5 mL, IV Push, [id number] Times, PRN Benadryl, 25 mg, Oral, q6hr, [...] Agree with plan. Patient was transferred from [place] for hypernatremia, AMS, hypotension, hypothermia, UTI and multiple electrolyte imbalances. Sodium level on 10/04/22 was elevated at 150. Admission to [place] ER her sodium was 158 at 13:25. [...] assessment and plan with nurse practitioner Rachel NORRIS. I agree with the progress notes written. Electronically signed by Kei Casas MD 10/13/22 14:56 EDT Normal [facility] Neurology Progress Noteon Neurology Progress Note Subjective Abnormal monoclonal: We will talk about possible clinical penitentiary where that is here are neurodiagnostic studies [...] Ativan, 1 mg= 0.5 mL, IV Push, [id number]-[id number] Times, PRN Benadryl, 25 mg, Oral, q6hr, [...] stable. Refractory schizophrenia. would prefer hospice and [place] 5. Chronic anticoagulation 6. Bradycardia 7. Encounter for palliative care Electronically signed by Cody Schulz MD 10/13/22 09:49 EDT Normal [facility] Progress Note-Nurseon 2022 Progress Note-Nurse report called to recieving facility. Electronically signed by Janell Patrick 10/13/22 15:54 EDT Normal [facility] Renal Panelon 10-13-2022 Albumin [Mass/Vol] 3.3 g/dL Normal 3.2-4.9 [facility] Comment on above: Performed By: #### B PHYSICIAN ADVISOR #### [place] [address] [address] Anion gap [Moles/Vol] 10 mmol/L Normal 7-17 [facility] Comment on above: Performed By: #### B PHYSICIAN ADVISOR #### [address] [address] Calcium [Mass/Vol] 9.4 mg/dL Normal 8.5-10.3 [facility] Comment on above: Performed By: #### B PHYSICIAN ADVISOR #### [address] [address] Chloride [Moles/Vol] 108 mmol/L Normal 98-110 [facility] Comment on above: Performed By: #### B PHYSICIAN ADVISOR #### [address] [address] CO2 [Moles/Vol] 27 mmol/L Normal 22-32 [facility] Comment on above: Performed By: #### B PHYSICIAN ADVISOR #### [address] [address] Creatinine [Mass/Vol] 1.11 mg/dL High 0.44-1.03 [facility] Comment on above: Performed By: #### B PHYSICIAN ADVISOR #### [address] [address] Glucose [Mass/Vol] 114 mg/dL High 70-99 [facility] Comment on above: Performed By: #### B PHYSICIAN ADVISOR #### [address] [address] Phosphate [Mass/Vol] 2.4 mg/dL Low 2.5-4.6 [facility] Comment on above: Performed By: #### B PHYSICIAN ADVISOR #### [address] [address] Potassium [Moles/Vol] 4.1 mmol/L Normal 3.4-4.8 [facility] Comment on above: Performed By: #### B PHYSICIAN ADVISOR #### [address] [address] Sodium [Moles/Vol] 141 mmol/L Normal 133-142 [facility] Comment on above: Performed By: #### B PHYSICIAN ADVISOR #### [address] [address] Urea nitrogen [Mass/Vol] 10 mg/dL Normal 8-26 [facility] Comment on above: Performed By: #### B PHYSICIAN ADVISOR #### [address] [address] Urea nitrogen/Creatinine [Mass ratio] 9.0 mg/mg Low 10.0-20.0 [facility] Comment on above: Performed By: #### B PHYSICIAN ADVISOR #### [address] [address] .eGFRon 10-12-2022 Estimated GFR 50 mL/min/1.73m? Low >=60 [facility] Comment on above: Result Comment: [facility] Laboratories have implemented the eGFR calculation approach [...] = years Performed By: #### E GFR ####[address] [address] Basic Metabolic Profileon Anion gap [Moles/Vol] 9 mmol/L Normal 7-17 [facility] Comment on above: Performed By: #### C D:[id number] #### [address] [place] [address] Calcium [Mass/Vol] 9.2 mg/dL Normal 8.5-10.3 [facility] Comment on above: Performed By: #### C D:[id number] #### [address] [address] Chloride [Moles/Vol] 111 mmol/L High 98-110 [facility] Comment on above: Performed By: #### C D:[id number] #### [address] [address] CO2 [Moles/Vol] 29 mmol/L Normal 22-32 [facility] Comment on above: Performed By: #### C D:[id number] #### [address] [address] Creatinine [Mass/Vol] 1.19 mg/dL High 0.44-1.03 [facility] Comment on above: Performed By: #### C D:[id number] #### [address] [address] Glucose [Mass/Vol] 109 mg/dL High 70-99 [facility] Comment on above: Performed By: #### C D:[id number] #### [address] [address] Potassium [Moles/Vol] 4.2 mmol/L Normal 3.4-4.8 [facility] Comment on above: Performed By: #### C D:[id number] #### [address] [address] Sodium [Moles/Vol] 145 mmol/L High 133-142 [facility] Comment on above: Performed By: #### C D:[id number] #### [address] [address] Urea nitrogen [Mass/Vol] 16 mg/dL Normal 8-26 [facility] Comment on above: Performed By: #### C D:[id number] #### [address] [place] [address] Urea nitrogen/Creatinine [Mass ratio] 13.4 mg/mg Normal 10.0-20.0 [facility] Comment on above: Performed By: #### C D:[id number] #### [facility] [address] [place] [address] Nephrology Progress Noteon 0 10-12-2022 Nephrology Progress [...] Ativan, 1 mg= 0.5 mL, IV Push, [id number]-Afyuvndy Times, PRN Benadryl, 25 mg, Oral, q6hr, [...] at this time. Patient was transferred from [place] for hypernatremia, AMS, hypotension, hypothermia, UTI and multiple electrolyte imbalances. Sodium level on 10/04/22 was elevated at 150. Admission to [place] ER her sodium was 158 at 13:25. [...] Electronically signed by Augusto ROPER, Kei Veloz 10/12/22 11:21 EDT Normal [facility] Neurology Progress Noteon Neurology Progress Note [...] Ativan, 1 mg= 0.5 mL, IV Push, [id number]-[id number] Times, PRN Benadryl, 25 mg, Oral, q6hr, [...] Cody Schulz MD 10/12/22 14:21 EDT Normal [facility] C Urineon 10-11-2022 C Urine Order added by Discern rule. ---- Final 50-100,000 cfu/ml Enterococcus faecalis isolated ORGANISM [employer] ---- SUSCEPTIBILITY --- ORGANISM ID: 1 ANTIBIOTIC INTERPRETATION TIMOTHY STATUS POS Enterococcus faecalis Ampicillin S <=2 V Ciprofloxacin R >=8 V Daptomycin S 4 V Gentamicin synergy R Syn-R V Levofloxacin R >=8 V Nitrofurantoin S <=16 V Streptomycin synergy R Syn-R V Tetracycline R >=16 V Vancomycin S 1 V Normal [facility] Comment on above: Performed By: #### U ####[facility] (DEFAULT)[address] [place], [place] [id number] [place] [address] Nephrology Progress Noteon 0 10-11-2022 Nephrology Progress [...] Ativan, 1 mg= 0.5 mL, IV Push, [id number] Times, PRN Benadryl, 25 mg, Oral, q6hr, [...] comfort measures only Patient was transferred from [place] for hypernatremia, AMS, hypotension, hypothermia, UTI and multiple electrolyte imbalances. Sodium level on 10/04/22 was elevated at 150. Admission to [place] ER her sodium was 158 at 13:25. [...] Kei Casas MD 10/11/22 11:57 EDT Normal [facility] Neurology Progress Noteon Neurology Progress Note [...] Ativan, 1 mg= 0.5 mL, IV Push, [id number]-Mecbpedw Times, PRN Benadryl, 25 mg, Oral, q6hr, [...] Orders: Basic Metabolic Profile Electronically signed by Zeus ROPER, Cody Francis 10/11/22 19:25 EDT Normal [facility] .eGFRon 10-10-2022 Estimated GFR 50 mL/min/1.73m? Low >=60 [facility] Comment on above: Result Comment: [facility] Laboratories have implemented the eGFR calculation approach [...] Age = years Performed By: #### C D:[id number] #### [place] [address] Estimated GFR 48 mL/min/1.73m? Low >=60 [facility] Comment on above: Result Comment: [facility] Laboratories have implemented the eGFR calculation approach [...] Age = years Performed By: #### C D:[id number] #### [facility] [address] [place] [address] Estimated GFR 47 mL/min/1.73m? Low >=60 [facility] Comment on above: Result Comment: [facility] Laboratories have implemented the eGFR calculation approach [...] years Performed By: #### C OMP #### [facility] [address] [place] [address] Estimated GFR 39 mL/min/1.73m? Low >=60 [facility] Comment on above: Result Comment: [facility] Laboratories have implemented the eGFR calculation approach [...] years Performed By: #### C OMP #### [address] [address] Estimated GFR 45 mL/min/1.73m? Low >=60 [facility] Comment on above: Result Comment: [facility] Laboratories have implemented the eGFR calculation approach [...] Age = years Performed By: #### C D:[id number] #### [address] [address] B12/Folate Lvlon 10-10-2022 Cobalamin (Vitamin B12) [Mass/Vol] 793 pg/mL Normal 180-914 [facility] Comment on above: Performed By: #### B PHYSICIAN ADVISOR #### [address] [address] Folate Lvl 10.3 ng/mL Normal >=5.9 [facility] Comment on above: Result Comment: A [facility] Technical Consultation has determined that deficient Folate concentrations are considered to be less than 4 ng/mL. Performed By: #### B PHYSICIAN ADVISOR #### [address] [address] Basic Metabolic Profileon Anion gap [Moles/Vol] 8 mmol/L Normal 7-17 [facility] Comment on above: Order Comment: until sodium normalized Performed By: #### C D:[id number] #### [address] [address] Calcium [Mass/Vol] 8.8 mg/dL Normal 8.5-10.3 [facility] Comment on above: Order Comment: until sodium normalized Performed By: #### C D:[id number] #### [address] [address] Chloride [Moles/Vol] 113 mmol/L High 98-110 [facility] Comment on above: Order Comment: until sodium normalized Performed By: #### C D:[id number] #### [address] [address] CO2 [Moles/Vol] 28 mmol/L Normal 22-32 [facility] Comment on above: Order Comment: until sodium normalized Performed By: #### C D:[id number] #### [address] [address] Creatinine [Mass/Vol] 1.20 mg/dL High 0.44-1.03 [facility] Comment on above: Order Comment: until sodium normalized Performed By: #### C D:[id number] #### [address] [address] Glucose [Mass/Vol] 112 mg/dL High 70-99 [facility] Comment on above: Order Comment: until sodium normalized Performed By: #### C D:[id number] #### [address] [address] Potassium [Moles/Vol] 3.4 mmol/L Normal 3.4-4.8 [facility] Comment on above: Order Comment: until sodium normalized Performed By: #### C D:[id number] #### [address] [address] Sodium [Moles/Vol] 146 mmol/L High 133-142 [facility] Comment on above: Order Comment: until sodium normalized Performed By: #### C D:[id number] #### [address] [address] Urea nitrogen [Mass/Vol] 26 mg/dL Normal 8-26 [facility] Comment on above: Order Comment: until sodium normalized Performed By: #### C D:[id number] #### [address] [address] Urea nitrogen/Creatinine [Mass ratio] 21.7 mg/mg High 10.0-20.0 [facility] Comment on above: Order Comment: until sodium normalized Performed By: #### C D:[id number] #### [address] [address] Anion gap [Moles/Vol] 9 mmol/L Normal 7-17 [facility] Comment on above: Order Comment: until sodium normalized Performed By: #### C OMP #### [address] [address] Calcium [Mass/Vol] 9.1 mg/dL Normal 8.5-10.3 [facility] Comment on above: Order Comment: until sodium normalized Performed By: #### C OMP #### [address] [address] Chloride [Moles/Vol] 114 mmol/L High 98-110 [facility] Comment on above: Order Comment: until sodium normalized Performed By: #### C OMP #### [address] [address] CO2 [Moles/Vol] 29 mmol/L Normal 22-32 [facility] Comment on above: Order Comment: until sodium normalized Performed By: #### C OMP #### [address] [address] Creatinine [Mass/Vol] 1.25 mg/dL High 0.44-1.03 [facility] Comment on above: Order Comment: until sodium normalized Performed By: #### C OMP #### [address] [address] Glucose [Mass/Vol] 101 mg/dL High 70-99 [facility] Comment on above: Order Comment: until sodium normalized Performed By: #### C OMP #### [address] [address] Potassium [Moles/Vol] 3.6 mmol/L Normal 3.4-4.8 [facility] Comment on above: Order Comment: until sodium normalized Performed By: #### C OMP #### [address] [address] Sodium [Moles/Vol] 148 mmol/L High 133-142 [facility] Comment on above: Order Comment: until sodium normalized Performed By: #### C OMP #### [address] [address] Urea nitrogen [Mass/Vol] 27 mg/dL High 8-26 [facility] Comment on above: Order Comment: until sodium normalized Performed By: #### C OMP #### [address] [address] Urea nitrogen/Creatinine [Mass ratio] 21.6 mg/mg High 10.0-20.0 [facility] Comment on above: Order Comment: until sodium normalized Performed By: #### C OMP #### [address] [address] Anion gap [Moles/Vol] 12 mmol/L Normal 7-17 [facility] Comment on above: Order Comment: until sodium normalized Performed By: #### C D:[id number] #### [address] [place] [address] Calcium [Mass/Vol] 9.0 mg/dL Normal 8.5-10.3 [facility] Comment on above: Order Comment: until sodium normalized Performed By: #### C D:[id number] #### [address] [address] Chloride [Moles/Vol] 112 mmol/L High 98-110 [facility] Comment on above: Order Comment: until sodium normalized Performed By: #### C D:[id number] #### [address] [address] CO2 [Moles/Vol] 28 mmol/L Normal 22-32 [facility] Comment on above: Order Comment: until sodium normalized Performed By: #### C D:[id number] #### [address] [address] Creatinine [Mass/Vol] 1.46 mg/dL High 0.44-1.03 [facility] Comment on above: Order Comment: until sodium normalized Performed By: #### C D:[id number] #### [address] [address] Glucose [Mass/Vol] 111 mg/dL High 70-99 [facility] Comment on above: Order Comment: until sodium normalized Performed By: #### C D:[id number] #### [address] [address] Potassium [Moles/Vol] 3.6 mmol/L Normal 3.4-4.8 [facility] Comment on above: Order Comment: until sodium normalized Performed By: #### C D:[id number] #### [address] [address] Sodium [Moles/Vol] 148 mmol/L High 133-142 [facility] Comment on above: Order Comment: until sodium normalized Performed By: #### C D:[id number] #### [address] [address] Urea nitrogen [Mass/Vol] 26 mg/dL Normal 8-26 [facility] Comment on above: Order Comment: until sodium normalized Performed By: #### C D:[id number] #### [address] [address] Urea nitrogen/Creatinine [Mass ratio] 17.8 mg/mg Normal 10.0-20.0 [facility] Comment on above: Order Comment: until sodium normalized Performed By: #### C D:[id number] #### [address] [address] Anion gap [Moles/Vol] 10 mmol/L Normal 7-17 [facility] Comment on above: Order Comment: until sodium normalized Performed By: #### R ENAL #### [address] [address] Calcium [Mass/Vol] 9.2 mg/dL Normal 8.5-10.3 [facility] Comment on above: Order Comment: until sodium normalized Performed By: #### R ENAL #### [address] [address] Chloride [Moles/Vol] 116 mmol/L High 98-110 [facility] Comment on above: Order Comment: until sodium normalized Performed By: #### R ENAL #### [address] [address] CO2 [Moles/Vol] 29 mmol/L Normal 22-32 [facility] Comment on above: Order Comment: until sodium normalized Performed By: #### R ENAL #### [address] [address] Creatinine [Mass/Vol] 1.29 mg/dL High 0.44-1.03 [facility] Comment on above: Order Comment: until sodium normalized Performed By: #### R ENAL #### [address] [address] Glucose [Mass/Vol] 105 mg/dL High 70-99 [facility] Comment on above: Order Comment: until sodium normalized Performed By: #### R ENAL #### [address] [address] Potassium [Moles/Vol] 3.7 mmol/L Normal 3.4-4.8 [facility] Comment on above: Order Comment: until sodium normalized Performed By: #### R ENAL #### [address] [address] Sodium [Moles/Vol] 151 mmol/L High 133-142 [facility] Comment on above: Order Comment: until sodium normalized Performed By: #### R ENAL #### [address] [address] Urea nitrogen [Mass/Vol] 28 mg/dL High 8-26 [facility] Comment on above: Order Comment: until sodium normalized Performed By: #### R ENAL #### [address] [address] Urea nitrogen/Creatinine [Mass ratio] 21.7 mg/mg High 10.0-20.0 [facility] Comment on above: Order Comment: until sodium normalized Performed By: #### R ENAL #### [address] [address] CBC w/ Diffon 10-10-2022 Erythrocyte distribution width (RBC) [Ratio] 16.6 % High 11.6-14.8 [facility] Comment on above: Performed By: #### C BC ####[address] [address] Hematocrit (Bld) [Volume fraction] 30.2 % Low 36.0-46.0 [facility] Comment on above: Performed By: #### C BC ####[address] [address] Hemoglobin (Bld) [Mass/Vol] 10.0 g/dL Low 12.0-16.0 [facility] Comment on above: Performed By: #### C BC ####[address] [address] MCH (RBC) [Entitic mass] 31.2 pg Normal 27.0-35.0 [facility] Comment on above: Performed By: #### C BC ####[address] [address] MCHC 33.0 % Normal 31.0-37.0 [facility] Comment on above: Performed By: #### C BC ####[address] [address] MCV (RBC) [Entitic vol] 94.6 fL Normal 80.0-100.0 [facility] Comment on above: Performed By: #### C BC ####[address] [address] Platelet 211 x10*3/mcL Normal 150-350 [facility] Comment on above: Performed By: #### C BC ####[address] [address] Platelet mean volume (Bld) [Entitic vol] 8.5 fL Normal 6.7-10.6 [facility] Comment on above: Performed By: #### C BC ####[address] [address] RBC 3.19 x10*6/mcL Low 3.80-5.20 [facility] Comment on above: Performed By: #### C BC ####[address] [address] WBC 7.6 x10*3/mcL Normal 4.5-11.0 [facility] Comment on above: Performed By: #### C BC ####[address] [address] CPKon 10-10-2022 Creatine Phosphokinase 20 IU/L Low 38-234 Bl [facility] Comment on above: Performed By: #### C D:[id number] #### [address] [address] Consultation Note - Generico n 10-10-2022 Consultation Note - Generic Chief Complaint change in mentation. 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 All medical history obtained from transfer paperwork and also patient's Freddy over the phone. Patient is currently residing at [facility]. Patient arrived to [facility] emergency department at 1317 on 10/08 from [facility], with initial blood pressure of 195/91, [...] bradycardia. According to paperwork and report from [facility], with patient's underlying psychiatric disorders, baseline ranges from appropriate behavior to catatonia. Patient was admitted to [facility] on 09/28 due to worsening confusion and psychosis and in a catatonic state. In assessment dated 09/29, patient is noncommunicative does not cooperate, does not follow commands. Patient is seen in [facility] ICU and arouses to name but no [...] Notes first episode occurring the day after [place]. He describes approximately 4 episodes with subsequent admissions to either [facility] or [facility], with this being the worst episode. He [...] EXAM: XR (more content not included)... Normal [facility] Cortisolon 10-10-2022 Cortisol 3.3 mcg/dL Normal [facility] Comment on above: Result Comment: Norm als: 6.7 - 22.6 mcg/dL in A.M. < 10.0 mcg/dL in P.M. Performed By: #### C OMP #### [facility] [address] [place] [address] Cult,Urineon 10-10-2022 Cult,Urine Specimen Description .URINE Culture ENTEROCOCCUS FAECALIS >[id number] CFU/ML Report Status FINAL 10/10/2022 SUSCEPTIBILITY Organism ENTEROCOCCUS FAECALIS Method TIMOTHY Ampicillin <=2 SUSCEPTIBLE Ciprofloxacin >=8 RESISTANT Levofloxacin >=8 RESISTANT Nitrofurantoin <=16 SUSCEPTIBLE Tetracycline >=16 RESISTANT Vancomycin 1 SUSCEPTIBLE Susceptible [facility] Comment on above: Performed By: #### U RC #### [facility] [place] [address] Lease Examiner: Jersey Dahl MD [facility] [address] [place] [address] Lease Examiner: Kayley Doll MD Diff Autoon 10-10-2022 Baso Absolute 0.1 x10*3/mcL Normal 0.0-0.2 [facility] Comment on above: Performed By: #### . Automated Diff ####[address] [address] Basophils/100 WBC (Bld) 0.8 % Normal 0.0-1.5 [facility] Comment on above: Performed By: #### . Automated Diff ####[address] [address] Eos Absolute 0.2 x10*3/mcL Normal 0.0-0.4 [facility] Comment on above: Performed By: #### . Automated Diff ####[address] [address] Eosinophils/100 WBC (Bld) 2.4 % Normal 0.0-5.4 [facility] Comment on above: Performed By: #### . Automated Diff ####[address] [address] Lymph Absolute 1.6 x10*3/mcL Normal 1.0-4.8 [facility] Comment on above: Performed By: #### . Automated Diff ####[address] [address] Lymphocytes/100 WBC (Bld) 20.4 % Low 27.2-40.8 [facility] Comment on above: Performed By: #### . Automated Diff ####[address] [address] [place] Absolute 0.6 x10*3/mcL Normal 0.1-1.1 [facility] Comment on above: Performed By: #### . Automated Diff ####[address] [address] Monocytes/100 WBC (Bld) 7.4 % Normal 3.7-11.9 [facility] Comment on above: Performed By: #### . Automated Diff ####[address] [address] Neutro Absolute 5.3 x10*3/mcL Normal 1.8-7.7 [facility] Comment on above: Performed By: #### . Automated Diff ####[place] [address] Neutro Auto 69.0 % Normal 47.2-70.8 [facility] Comment on above: Performed By: #### . Automated Diff ####[place] [address] Free T4on 10-10-2022 Free T4 [Mass/Vol] 1.20 ng/dL High 0.61-1.12 [facility] Comment on above: Result Comment: Refe rence Ranges for Females: Females, 1st Trimester 0.52 ? 1.10 ng/dL Females, 2nd Trimester 0.45 ? 0.99 ng/dL Females, 3rd Trimester 0.48 - 0.95 ng/dL Performed By: #### B PHYSICIAN ADVISOR #### [place] [address] MRI Brain + MRA Head w/o Con [...] in Other Vendor System) Normal [facility] Comment on above: Order Comment: ATIVA N 2 MG IV IF NEEDED Magnesiumon 10-10-2022 Magnesium [Mass/Vol] 2.2 mg/dL Normal 1.7-2.4 [facility] Comment on above: Performed By: #### M G ####[place] [address] Nephrology Progress Noteon 0 10-10-2022 Nephrology Progress [...] Ativan, 1 mg= 0.5 mL, IV Push, [id number] Times, PRN Benadryl, 25 mg, Oral, q6hr, [...] hrs during correction. Patient was transferred from [place] for hypernatremia, AMS, hypotension, hypothermia, UTI and multiple electrolyte imbalances. Sodium level on 10/04/22 was elevated at 150. Admission to [place] ER her sodium was 158 at 13:25. [...] Kei Casas MD 10/10/22 18:21 EDT Normal [facility] Osmol,Serumon 10-10-2022 Serum Osmolality 311 mOsm/kg High 280-295 [facility] Comment on above: Performed By: #### R ENAL #### [facility] [address] [place] [address] Renal Panelon 10-10-2022 Albumin [Mass/Vol] 3.4 g/dL Normal 3.2-4.9 [facility] Comment on above: Performed By: #### R ENAL #### [facility] [address] [place] [address] Anion gap [Moles/Vol] 11 mmol/L Normal 7-17 [facility] Comment on above: Performed By: #### R ENAL #### [facility] [address] [place] [address] Calcium [Mass/Vol] 9.1 mg/dL Normal 8.5-10.3 [facility] Comment on above: Performed By: #### R ENAL #### [address] [address] Chloride [Moles/Vol] 113 mmol/L High 98-110 [facility] Comment on above: Performed By: #### R ENAL #### [address] [address] CO2 [Moles/Vol] 28 mmol/L Normal 22-32 [facility] Comment on above: Performed By: #### R ENAL #### [address] [address] Creatinine [Mass/Vol] 1.24 mg/dL High 0.44-1.03 [facility] Comment on above: Performed By: #### R ENAL #### [address] [address] Glucose [Mass/Vol] 93 mg/dL Normal 70-99 [facility] Comment on above: Performed By: #### R ENAL #### [address] [address] Phosphate [Mass/Vol] 2.4 mg/dL Low 2.5-4.6 [facility] Comment on above: Performed By: #### R ENAL #### [address] [address] Potassium [Moles/Vol] 3.6 mmol/L Normal 3.4-4.8 [facility] Comment on above: Performed By: #### R ENAL #### [address] [address] Sodium [Moles/Vol] 148 mmol/L High 133-142 [facility] Comment on above: Performed By: #### R ENAL #### [address] [address] Urea nitrogen [Mass/Vol] 26 mg/dL Normal 8-26 [facility] Comment on above: Performed By: #### R ENAL #### [address] [address] Urea nitrogen/Creatinine [Mass ratio] 21.0 mg/mg High 10.0-20.0 [facility] Comment on above: Performed By: #### R ENAL #### [address] [address] Speech Therapy Progress Note on 10-10-2022 Speech Therapy Progress Note Speech therapy order automatically generated secondary to deferred nursing swallow screen. Swallow screen was deferred as patient was not alert. Spoke with primary RN. Patient is not alert today and not appropriate for PO trials. This automatic order will be discontinued. RN will obtain new orders when patient is alert, if appropriate at that time. Electronically signed by Hafsa Nguyen 10/10/22 14:50 EDT Normal [facility] TIBCon 10-10-2022 Iron [Mass/Vol] 69 ug/dL Normal 28-170 [facility] Comment on above: Performed By: #### C OMP #### [address] [address] Iron Sat 24.1 % Normal >=16.0 [facility] Comment on above: Performed By: #### C OMP #### [address] [address] TIBC 286 mcg/dL Normal 261-478 [facility] Comment on above: Performed By: #### C OMP #### [address] [address] Transferrin [Mass/Vol] 204 mg/dL Normal 192-382 [facility] Comment on above: Performed By: #### C OMP #### [address] [address] UPCRon 10-10-2022 Creatinine [Mass/Vol] 176.2 mg/dL Normal [facility] Comment on above: Order Comment: Order ed by Discern Rule for Protein-Creatinine Ratio. Result Comment: The reference range has not been established for this test on a random urine sample. The test result should be interpreted based on clinical context. Performed By: #### U CI #### [address] [address] Ur Protein 24 mg/dL High <=10 [facility] Comment on above: Order Comment: Order ed by Discern Rule for Protein-Creatinine Ratio. Performed By: #### U CI #### [address] [address] Urine Protein/Creatinine Ratio 0.14 Normal <=0.28 [facility] Comment on above: Order Comment: Order ed by Discern Rule for Protein-Creatinine Ratio. Performed By: #### U CI #### [address] [address] Uric Acidon 10-10-2022 Urate [Mass/Vol] 8.3 mg/dL High 2.6-8.0 [facility] Comment on above: Performed By: #### B PHYSICIAN ADVISOR #### [address] [address] Vitamin D 25-Hydroxy Totalon 10-10-2022 Vitamin D 25-Hydroxy Total 41 ng/mL Normal 30-100 [facility] Comment on above: Result Comment: Bandar min D 25-Hydroxy Total Reference Range: Deficient: < 20 Insufficient: 20 to < 30 Sufficient: 30 - 100 Upper Safety Limit: > 100 Performed By: #### B PHYSICIAN ADVISOR #### [address] [address] X SSTon 10-10-2022 Extra SST Collected Normal [facility] Comment on above: Performed By: #### C OMP #### [address] [address] XR Chest 1 Viewon 10-10-2022 XR Chest [...] Electronically Signed in Other Vendor System) Normal [facility] .UA Microscp Aon 10-09-2022 UA Bacteria Present Abnormal Absent [facility] Comment on above: Performed By: #### C [id number] #### [address] [address] UA CA Oxalate Present Abnormal Absent [facility] Comment on above: Performed By: #### C [id number] #### [address] [address] UA Mucus Present Abnormal Absent [facility] Comment on above: Performed By: #### C [id number] #### [place] [id number] UA RBC Quant 39 /HPF High 0-5 [facility] Comment on above: Performed By: #### C [id number] #### [address] [address] UA Squepi Cells Quant 1 /HPF Normal 0-29 [facility] Comment on above: Performed By: #### C [id number] #### [address] [address] UA WBC Clmp Present Abnormal Absent [facility] Comment on above: Performed By: #### C [id number] #### [address] [address] UA WBC Quant 151 /HPF High 0-5 [facility] Comment on above: Performed By: #### C [id number] #### [address] [address] .eGFRon 10-09-2022 Estimated GFR 47 mL/min/1.73m? Low >=60 [facility] Comment on above: Result Comment: [facility] Laboratories have implemented the eGFR calculation approach [...] Age = years Performed By: #### B PHYSICIAN ADVISOR #### [place] [address] Estimated GFR 49 mL/min/1.73m? Low >=60 [facility] Comment on above: Result Comment: [facility] Laboratories have implemented the eGFR calculation approach [...] years Performed By: #### R ENAL #### [address] [address] Estimated GFR 45 mL/min/1.73m? Low >=60 [facility] Comment on above: Result Comment: [facility] Laboratories have implemented the eGFR calculation approach [...] Age = years Performed By: #### B PHYSICIAN ADVISOR #### [address] [address] Estimated GFR 49 mL/min/1.73m? Low >=60 [facility] Comment on above: Result Comment: [facility] Laboratories have implemented the eGFR calculation approach [...] = years Performed By: #### E GFR ####[facility] [place] [address] Estimated GFR 53 mL/min/1.73m? Low >=60 [facility] Comment on above: Result Comment: [facility] Laboratories have implemented the eGFR calculation approach [...] years Performed By: #### R ENAL #### [facility] [address] [place] [address] GFR/1.73 sq M.predicted MDRD (S/P/Bld) [Vol rate/Area] mL/min/{1.73_m2} Normal >=60 [facility] Comment on above: Result Comment: [facility] Laboratories have implemented the eGFR calculation approach [...] = years Performed By: #### E GFR ####[address] [address] Ammoniaon 10-09-2022 Ammonia (P) [Moles/Vol] 31 umol/L Normal 9-35 [facility] Comment on above: Performed By: #### C [id number] #### [place] [id number] BNPon 10-09-2022 Natriuretic peptide B (Bld) [Mass/Vol] 88 pg/mL Normal 0-100 [facility] Comment on above: Order Comment: CHRISTIAN lambert came in while doing draws and saw BNP was marked as to be collected 10/10/2022 and had talked to pt's dr and asked for it to be collected today Performed By: #### C OMP #### [place] [id number] Natriuretic peptide B (Bld) [Mass/Vol] 114 pg/mL High 0-100 [facility] Comment on above: Performed By: #### B PHYSICIAN ADVISOR #### [address] [address] Basic Metabolic Panelon 09-30 Anion gap [Moles/Vol] 7 mmol/L Low 9 - 17 mmol/L [facility] Calcium [Mass/Vol] 10.4 mg/dL 8.6 - 10. 4 mg/dL [facility] Chloride [Moles/Vol] 117 mmol/L High 98 - 10 7 mmol/L [facility] CO2 [Moles/Vol] 32 mmol/L High 20 - 31 mmol/L [facility] Creatinine [Mass/Vol] 0.88 mg/dL 0.50 - 0.90 mg/dL [facility] GFR/1.73 sq M.predicted MDRD (S/P/Bld) [Vol rate/Area] - PINF [facility] Comment on above: These results are [...] 118 mg/dL High 70 - 99 mg/dL [facility] [employer] Interpretation and review of laboratory results Abnormal [facility] Potassium [Moles/Vol] 3.4 mmol/L Low 3.7 - 5.3 mmol/L [facility] Sodium [Moles/Vol] 156 mmol/L High 135 - 144 mmol/L [facility] Urea nitrogen [Mass/Vol] 31 mg/dL High 8 - 23 mg/dL [facility] Urea nitrogen/Creatinine (Bld) [Mass ratio] 35 High 9 - 20 [facility] Anion gap [Moles/Vol] 6 mmol/L Low 9 - 17 mmol/L [facility] Calcium [Mass/Vol] 10.4 mg/dL 8.6 - 10. 4 mg/dL [facility] Chloride [Moles/Vol] 118 mmol/L High 98 - 10 7 mmol/L [facility] CO2 [Moles/Vol] 32 mmol/L High 20 - 31 mmol/L [facility] Creatinine [Mass/Vol] 0.91 mg/dL High 0.50 - 0.90 mg/dL [facility] GFR/1.73 sq M.predicted MDRD (S/P/Bld) [Vol rate/Area] - PINF [facility] [employer] Comment on above: These results are not intended for use in patients <18 years of age. eGFR results are calculated without a race factor using the 202 CKD-EPI equation. Careful clinical correlation is recommended, particularly when comparing to results calculated using previous equations. The CKD-EPI equation is less accurate in patients with extremes of muscle mass, extra-renal metabolism of creatine, excessive creatine ingestion, or following therapy that affects renal tubular secretion. Glucose [Mass/Vol] 94 mg/dL 70 - 99 mg/dL [facility] Interpretation and review of laboratory results Abnormal [facility] [employer] Potassium [Moles/Vol] 3.5 mmol/L Low 3.7 - 5.3 mmol/L [facility] [employer] Sodium [Moles/Vol] 156 mmol/L High 135 - 144 mmol/L [facility] [employer] Urea nitrogen [Mass/Vol] 32 mg/dL High 8 - 23 mg/dL [facility] [employer] Urea nitrogen/Creatinine (Bld) [Mass ratio] 35 High 9 - 20 [facility] [employer] Anion gap [Moles/Vol] 7 mmol/L Low 9 - 17 mmol/L [facility] [employer] Calcium [Mass/Vol] 10.3 mg/dL 8.6 - 10. 4 mg/dL [facility] [employer] Chloride [Moles/Vol] 117 mmol/L High 98 - 10 7 mmol/L [facility] [employer] CO2 [Moles/Vol] 30 mmol/L 20 - 31 mmol/L [facility] [employer] Creatinine [Mass/Vol] 0.9 mg/dL 0.50 - 0.90 mg/dL [facility] [employer] GFR/1.73 sq M.predicted MDRD (S/P/Bld) [Vol rate/Area] - PINF [facility] Comment on above: These results are [...] 140 mg/dL High 70 - 99 mg/dL [facility] Interpretation and review of laboratory results Abnormal [facility] Potassium [Moles/Vol] 3.0 mmol/L Low 3.7 - 5.3 mmol/L [facility] Sodium [Moles/Vol] 154 mmol/L High 135 - 144 mmol/L [facility] Urea nitrogen [Mass/Vol] 32 mg/dL High 8 - 23 mg/dL [facility] Urea nitrogen/Creatinine (Bld) [Mass ratio] 36 High 9 - 20 [facility] Basic Metabolic Profon 10-09 Anion gap [Moles/Vol] 7 mmol/L Low 9-17 [facility] Comment on above: Performed By: #### L IPR #### [facility] [address] [place] [address] Lease Examiner: Jersey Dahl MD #### CDP, CP #### [facility] [address] [place] [address] [place] [address] Lease Examiner: Kayley Doll MD BUN/CRE Ratio 35 High 9-20 [facility] Comment on above: Performed By: #### L IPR #### [facility] [address] [place] [address] Lease Examiner: Jersey Dahl MD #### CDP, CP #### [facility] [address] [place] [address] Lease Examiner: Kayley Doll MD Calcium [Mass/Vol] 10.4 mg/dL Normal 8.6-10.4 [facility] Comment on above: Performed By: #### L IPR #### [facility] [address] [place] [address] Lease Examiner: Jersey Dahl MD #### CDP, CP #### [facility] [address] [place] [address] Lease Examiner: Kayley Doll MD Chloride [Moles/Vol] 117 mmol/L High 98-107 [facility] Comment on above: Performed By: #### L IPR #### [place] [id number] [place] [address] Lease Examiner: Jersey Dahl MD #### CDP, CP #### [facility] [address] [place], [place] [id number] Lease Examiner: Kayley Doll MD CO2 [Moles/Vol] 32 mmol/L High 20-31 [facility] Comment on above: Performed By: #### L IPR #### [address] [address] Lease Examiner: Jersey Dahl MD #### CDP, CP #### [facility] [address] [place] [address] [place], [place] [id number] Lease Examiner: Kayley Doll MD Creatinine [Mass/Vol] 0.88 mg/dL Normal 0.50-0.90 [facility] Comment on above: Performed By: #### L IPR #### [address] [address] Lease Examiner: Jersey Dahl MD #### CDP, CP #### [facility] [address] [place] [address] [place], [place] [id number] Lease Examiner: Kayley Doll MD GFR/1.73 sq M.predicted among non-blacks MDRD (S/P/Bld) [Vol rate/Area] mL/min/{1.73_m2} Normal >60 [facility] Comment on above: Result Comment: These results [...] secretion. Performed By: #### L IPR #### [address] [address] Lease Examiner: Jersey Dahl MD #### CDP, CP #### [facility] [address] [place], [place] [id number] Lease Examiner: Kayley Doll MD Glucose [Mass/Vol] 118 mg/dL High 70-99 [facility] Comment on above: Performed By: #### L IPR #### [address] [address] Lease Examiner: Jersey Dahl MD #### CDP, CP #### [facility] [address] [place] [address] [address] [place], [place] [phone] Lease Examiner: Kayley Doll MD Potassium [Moles/Vol] 3.4 mmol/L Low 3.7-5.3 [facility] Comment on above: Performed By: #### L IPR #### [address] [address] Lease Examiner: Jersey Dahl MD #### CDP, CP #### [address] [place], [place] [id number] Lease Examiner: Kayley Doll MD Sodium [Moles/Vol] 156 mmol/L High 135-144 [facility] Comment on above: Performed By: #### L IPR #### [address] [address] Lease Examiner: Jersey Dahl MD #### CDP, CP #### [facility] [address] [place] [address] [place] [place], [place] [phone] Lease Examiner: Kayley Doll MD Urea nitrogen [Mass/Vol] 31 mg/dL High 8-23 [facility] Comment on above: Performed By: #### L IPR #### [address] [address] Lease Examiner: Jersey Dahl MD #### CDP, CP #### [address] [place], [place] [phone] Lease Examiner: Kayley Doll MD Anion gap [Moles/Vol] 6 mmol/L Low 9-17 [facility] Comment on above: Performed By: #### B MP #### [facility] [address] [place], [place] [phone] Lease Examiner: Kayley Doll MD BUN/CRE Ratio 35 High 9-20 [facility] Comment on above: Performed By: #### B MP #### [facility] [address] [place], [place] [phone] Lease Examiner: Kayley Doll MD Calcium [Mass/Vol] 10.4 mg/dL Normal 8.6-10.4 [facility] Comment on above: Performed By: #### B MP #### [facility] [address] [place], [place] [address]83 Lease Examiner: Kayley Doll MD Chloride [Moles/Vol] 118 mmol/L High 98-107 [facility] Comment on above: Performed By: #### B MP #### [facility] [address] [place], [place] [phone] Lease Examiner: Kayley Doll MD CO2 [Moles/Vol] 32 mmol/L High 20-31 [facility] Comment on above: Performed By: #### B MP #### [facility] [address] [place], [place] [phone] Lease Examiner: Kayley Doll MD Creatinine [Mass/Vol] 0.91 mg/dL High 0.50-0.90 [facility] Comment on above: Performed By: #### B MP #### [facility] [address] [place] [address] Lease Examiner: Kayley Doll MD GFR/1.73 sq M.predicted among non-blacks MDRD (S/P/Bld) [Vol rate/Area] mL/min/{1.73_m2} Normal >60 [facility] Comment on above: Result Comment: These results [...] secretion. Performed By: #### B MP #### [facility] [address] [place] [address] [place] [place], [place] [phone] Lease Examiner: Kayley Doll MD Glucose [Mass/Vol] 94 mg/dL Normal 70-99 [facility] Comment on above: Performed By: #### B MP #### [address] [place], [place] [phone] Lease Examiner: Kayley Doll MD Potassium [Moles/Vol] 3.5 mmol/L Low 3.7-5.3 [facility] Comment on above: Performed By: #### B MP #### [address] [place] [address] Lease Examiner: Kayley Doll MD Sodium [Moles/Vol] 156 mmol/L High 135-144 [facility] Comment on above: Performed By: #### B MP #### [facility] [address] [place] [address] [place], [place] [phone] Lease Examiner: Kayley Doll MD Urea nitrogen [Mass/Vol] 32 mg/dL High 8-23 [facility] Comment on above: Performed By: #### B MP #### [facility] [address] [place] [address] [place] [address] Lease Examiner: Kyaley Doll MD Anion gap [Moles/Vol] 7 mmol/L Low 9-17 [facility] Comment on above: Performed By: #### L IPR #### [address] [id number] Lease Examiner: Jersey Dahl MD #### CDP, CP #### [facility] [address] [place], [place] [phone] Lease Examiner: Kayley Doll MD BUN/CRE Ratio 36 High 9-20 [facility] Comment on above: Performed By: #### L IPR #### [address] [address] Lease Examiner: Jersey Dahl MD #### CDP, CP #### [facility] [address] [place] [phone] Lease Examiner: Kayley Doll MD Calcium [Mass/Vol] 10.3 mg/dL Normal 8.6-10.4 [facility] Comment on above: Performed By: #### L IPR #### [address] [address] Lease Examiner: Jersey Dahl MD #### CDP, CP #### [facility] [address] [place] [address] [place] [id number] Lease Examiner: Kayley Doll MD Chloride [Moles/Vol] 117 mmol/L High 98-107 [facility] Comment on above: Performed By: #### L IPR #### [address] [address] Lease Examiner: Jersey Dahl MD #### CDP, CP #### [facility] [address] [place] [address] Dr. [place], [place] [phone] Lease Examiner: Kayley Doll MD CO2 [Moles/Vol] 30 mmol/L Normal 20-31 [facility] Comment on above: Performed By: #### L IPR #### [address] [address] Lease Examiner: Jersey Dahl MD #### CDP, CP #### [facility] [address] [place] [address] Dr. [place] [phone] Lease Examiner: Kayley Doll MD Creatinine [Mass/Vol] 0.90 mg/dL Normal 0.50-0.90 [facility] Comment on above: Performed By: #### L IPR #### [id number] [place] [address] Lease Examiner: Jersey Dahl MD #### CDP, CP #### [address] [place] [place] [address] Lease Examiner: Kayley Doll MD GFR/1.73 sq M.predicted among non-blacks MDRD (S/P/Bld) [Vol rate/Area] mL/min/{1.73_m2} Normal >60 [facility] Comment on above: Result Comment: These results [...] secretion. Performed By: #### L IPR #### [address] [address] Lease Examiner: Jersey Dahl MD #### CDP, CP #### [address] [place] [address] Lease Examiner: Kayley Doll MD Glucose [Mass/Vol] 140 mg/dL High 70-99 [facility] Comment on above: Performed By: #### L IPR #### [address] [place] [address] Lease Examiner: Jersey Dahl MD #### CDP, CP #### [address] [place] [address] Lease Examiner: Kayley Doll MD Potassium [Moles/Vol] 3.0 mmol/L Low 3.7-5.3 [facility] Comment on above: Performed By: #### L IPR #### [address] [address] Lease Examiner: Jersey Dahl MD #### CDP, CP #### [facility] [address] [place], [place] [phone] Lease Examiner: Kayley Doll MD Sodium [Moles/Vol] 154 mmol/L High 135-144 [facility] Comment on above: Performed By: #### L IPR #### [address] [address] Lease Examiner: Jersey Dahl MD #### CDP, CP #### [address] [place], [place] [phone] Lease Examiner: Kayley Doll MD Urea nitrogen [Mass/Vol] 32 mg/dL High 8-23 [facility] Comment on above: Performed By: #### L IPR #### [address] [address] Lease Examiner: Jersey Dahl MD #### CDP, CP #### [address] [place], [place] [phone] Lease Examiner: Kayley Doll MD Anion gap [Moles/Vol] 10 mmol/L Normal 9-17 [facility] Comment on above: Performed By: #### L IPR #### [address] [address] Lease Examiner: Jersey Dahl MD #### CDP, CP #### [facility] [address] [place] [address] Dr. [place], [place] [phone] Lease Examiner: Kayley Doll MD BUN/CRE Ratio 37 High 9-20 [facility] Comment on above: Performed By: #### L IPR #### [address] [address] Lease Examiner: Jersey Dahl MD #### CDP, CP #### [facility] [address] [place], [place] [phone] Lease Examiner: Kayley Doll MD Calcium [Mass/Vol] 10.3 mg/dL Normal 8.6-10.4 [facility] Comment on above: Performed By: #### L IPR #### [address] [address] Lease Examiner: Jersey Dahl MD #### CDP, CP #### [facility] [address] [place], [place] [phone] Lease Examiner: Kayley Doll MD Chloride [Moles/Vol] 116 mmol/L High 98-107 [facility] Comment on above: Performed By: #### L IPR #### [address] [address] Lease Examiner: Jersey Dahl MD #### CDP, CP #### [address] [place], [place] [phone] Lease Examiner: Kayley Doll MD CO2 [Moles/Vol] 29 mmol/L Normal 20-31 [facility] Comment on above: Performed By: #### L IPR #### [address] [address] Lease Examiner: Jersey Dahl MD #### CDP, CP #### [facility] [address] [place] [address] Dr. [place] [phone] Lease Examiner: Kayley Doll MD Creatinine [Mass/Vol] 0.94 mg/dL High 0.50-0.90 [facility] Comment on above: Performed By: #### L IPR #### [address] [address] Lease Examiner: Jersey Dahl MD #### CDP, CP #### [facility] [address] [place], [place] [phone] Lease Examiner: Kayley Doll MD GFR/1.73 sq M.predicted among non-blacks MDRD (S/P/Bld) [Vol rate/Area] mL/min/{1.73_m2} Normal >60 [facility] Comment on above: Result Comment: These results [...] secretion. Performed By: #### L IPR #### [address] [address] Lease Examiner: Jersey Dahl MD #### CDP, CP #### [address] [place], [place] [phone] Lease Examiner: Kayley Doll MD Glucose [Mass/Vol] 144 mg/dL High 70-99 [facility] Comment on above: Performed By: #### L IPR #### [address] [address] Lease Examiner: Jersey Dahl MD #### CDP, CP #### [address] [place], [place] [phone] Lease Examiner: Kayley Doll MD Potassium [Moles/Vol] 3.3 mmol/L Low 3.7-5.3 [facility] Comment on above: Performed By: #### L IPR #### [address] [address] Lease Examiner: Jersey Dahl MD #### CDP, CP #### [address] [place], [place] [phone] Lease Examiner: Kayley Doll MD Sodium [Moles/Vol] 155 mmol/L High 135-144 [facility] Comment on above: Performed By: #### L IPR #### [facility] [address] [place] [address] Lease Examiner: Jersey Dahl MD #### CDP, CP #### [facility] [address] [place], [place] [phone] Lease Examiner: Kayley Doll MD Urea nitrogen [Mass/Vol] 35 mg/dL High 8-23 [facility] Comment on above: Performed By: #### L IPR #### [facility] [address] [place] [address] Lease Examiner: Jersey Dahl MD #### CDP, CP #### [facility] [address] [place], [place] [phone] Lease Examiner: Kayley Doll MD Basic Metabolic Profileon Anion gap [Moles/Vol] 10 mmol/L Normal 7-17 [facility] Comment on above: Order Comment: until sodium normalized Performed By: #### C D:[id number] ####[address] [address] Calcium [Mass/Vol] 9.1 mg/dL Normal 8.5-10.3 [facility] Comment on above: Order Comment: until sodium normalized Performed By: #### C D:[id number] ####[address] [place] [address] Chloride [Moles/Vol] 117 mmol/L High 98-110 [facility] Comment on above: Order Comment: until sodium normalized Performed By: #### C D:[id number] ####[address] [address] CO2 [Moles/Vol] 28 mmol/L Normal 22-32 [facility] Comment on above: Order Comment: until sodium normalized Performed By: #### C D:[id number] ####[address] [address] Creatinine [Mass/Vol] 1.26 mg/dL High 0.44-1.03 [facility] Comment on above: Order Comment: until sodium normalized Performed By: #### C D:[id number] ####[address] [address] Glucose [Mass/Vol] 90 mg/dL Normal 70-99 [facility] Comment on above: Order Comment: until sodium normalized Performed By: #### C D:[id number] ####[address] [address] Potassium [Moles/Vol] 3.9 mmol/L Normal 3.4-4.8 [facility] Comment on above: Order Comment: until sodium normalized Performed By: #### C D:[id number] ####[address] [address] Sodium [Moles/Vol] 151 mmol/L High 133-142 [facility] Comment on above: Order Comment: until sodium normalized Performed By: #### C D:[id number] ####[address] [address] Urea nitrogen [Mass/Vol] 30 mg/dL High 8-26 [facility] Comment on above: Order Comment: until sodium normalized Performed By: #### C D:[id number] ####[address] [address] Urea nitrogen/Creatinine [Mass ratio] 23.8 mg/mg High 10.0-20.0 [facility] Comment on above: Order Comment: until sodium normalized Performed By: #### C D:[id number] ####[address] [address] Anion gap [Moles/Vol] 10 mmol/L Normal 7-17 [facility] Comment on above: Order Comment: until sodium normalized Performed By: #### C D:[id number] #### [address] [place] [address] Calcium [Mass/Vol] 9.2 mg/dL Normal 8.5-10.3 [facility] Comment on above: Order Comment: until sodium normalized Performed By: #### C D:[id number] #### [address] [address] Chloride [Moles/Vol] 116 mmol/L High 98-110 [facility] Comment on above: Order Comment: until sodium normalized Performed By: #### C D:[id number] #### [address] [address] CO2 [Moles/Vol] 29 mmol/L Normal 22-32 [facility] Comment on above: Order Comment: until sodium normalized Performed By: #### C D:[id number] #### [address] [address] Creatinine [Mass/Vol] 1.21 mg/dL High 0.44-1.03 [facility] Comment on above: Order Comment: until sodium normalized Performed By: #### C D:[id number] #### [address] [address] Glucose [Mass/Vol] 81 mg/dL Normal 70-99 [facility] Comment on above: Order Comment: until sodium normalized Performed By: #### C D:[id number] #### [address] [address] Potassium [Moles/Vol] 4.0 mmol/L Normal 3.4-4.8 [facility] Comment on above: Order Comment: until sodium normalized Performed By: #### C D:[id number] #### [address] [address] Sodium [Moles/Vol] 151 mmol/L High 133-142 [facility] Comment on above: Order Comment: until sodium normalized Performed By: #### C D:[id number] #### [address] [address] Urea nitrogen [Mass/Vol] 29 mg/dL High 8-26 [facility] Comment on above: Order Comment: until sodium normalized Performed By: #### C D:[id number] #### [address] [address] Urea nitrogen/Creatinine [Mass ratio] 24.0 mg/mg High 10.0-20.0 [facility] Comment on above: Order Comment: until sodium normalized Performed By: #### C D:[id number] #### [address] [address] Anion gap [Moles/Vol] 9 mmol/L Normal 7-17 [facility] Comment on above: Performed By: #### U CI #### [address] [address] Calcium [Mass/Vol] 9.4 mg/dL Normal 8.5-10.3 [facility] Comment on above: Performed By: #### U CI #### [address] [address] Chloride [Moles/Vol] 116 mmol/L High 98-110 [facility] Comment on above: Performed By: #### U CI #### [address] [address] CO2 [Moles/Vol] 30 mmol/L Normal 22-32 [facility] Comment on above: Performed By: #### U CI #### [address] [address] Creatinine [Mass/Vol] 1.31 mg/dL High 0.44-1.03 [facility] Comment on above: Performed By: #### U CI #### [address] [address] Glucose [Mass/Vol] 94 mg/dL Normal 70-99 [facility] Comment on above: Performed By: #### U CI #### [address] [address] Potassium [Moles/Vol] 4.0 mmol/L Normal 3.4-4.8 [facility] Comment on above: Performed By: #### U CI #### [address] [address] Sodium [Moles/Vol] 151 mmol/L High 133-142 [facility] Comment on above: Performed By: #### U CI #### [address] [address] Urea nitrogen [Mass/Vol] 31 mg/dL High 8-26 [facility] Comment on above: Performed By: #### U CI #### [address] [address] Urea nitrogen/Creatinine [Mass ratio] 23.7 mg/mg High 10.0-20.0 [facility] Comment on above: Performed By: #### U CI #### [address] [address] Anion gap [Moles/Vol] 9 mmol/L Normal 7-17 [facility] Comment on above: Order Comment: until sodium normalized Performed By: #### C D:[id number] #### [address] [address] Calcium [Mass/Vol] 9.2 mg/dL Normal 8.5-10.3 [facility] Comment on above: Order Comment: until sodium normalized Performed By: #### C D:[id number] #### [address] [address] Chloride [Moles/Vol] 116 mmol/L High 98-110 [facility] Comment on above: Order Comment: until sodium normalized Performed By: #### C D:[id number] #### [address] [address] CO2 [Moles/Vol] 29 mmol/L Normal 22-32 [facility] Comment on above: Order Comment: until sodium normalized Performed By: #### C D:[id number] #### [address] [address] Creatinine [Mass/Vol] 1.22 mg/dL High 0.44-1.03 [facility] Comment on above: Order Comment: until sodium normalized Performed By: #### C D:[id number] #### [address] [address] Glucose [Mass/Vol] 145 mg/dL High 70-99 [facility] Comment on above: Order Comment: until sodium normalized Performed By: #### C D:[id number] #### [address] [address] Potassium [Moles/Vol] 3.9 mmol/L Normal 3.4-4.8 [facility] Comment on above: Order Comment: until sodium normalized Performed By: #### C D:[id number] #### [address] [address] Sodium [Moles/Vol] 150 mmol/L High 133-142 [facility] Comment on above: Order Comment: until sodium normalized Performed By: #### C D:[id number] #### [address] [address] Urea nitrogen [Mass/Vol] 30 mg/dL High 8-26 [facility] Comment on above: Order Comment: until sodium normalized Performed By: #### C D:[id number] #### [address] [address] Urea nitrogen/Creatinine [Mass ratio] 24.6 mg/mg High 10.0-20.0 [facility] Comment on above: Order Comment: until sodium normalized Performed By: #### C D:[id number] #### [address] [address] Anion gap [Moles/Vol] 11 mmol/L Normal 7-17 [facility] Comment on above: Order Comment: until sodium normalized Performed By: #### C D:[id number] #### [address] [address] Calcium [Mass/Vol] 9.5 mg/dL Normal 8.5-10.3 [facility] Comment on above: Order Comment: until sodium normalized Performed By: #### C D:[id number] #### [address] [address] Chloride [Moles/Vol] 117 mmol/L High 98-110 [facility] Comment on above: Order Comment: until sodium normalized Performed By: #### C D:[id number] #### [address] [address] CO2 [Moles/Vol] 28 mmol/L Normal 22-32 [facility] Comment on above: Order Comment: until sodium normalized Performed By: #### C D:[id number] #### [address] [address] Creatinine [Mass/Vol] 1.14 mg/dL High 0.44-1.03 [facility] Comment on above: Order Comment: until sodium normalized Performed By: #### C D:[id number] #### [address] [address] Glucose [Mass/Vol] 99 mg/dL Normal 70-99 [facility] Comment on above: Order Comment: until sodium normalized Performed By: #### C D:[id number] #### [address] [address] Potassium [Moles/Vol] 3.4 mmol/L Normal 3.4-4.8 [facility] Comment on above: Order Comment: until sodium normalized Performed By: #### C D:[id number] #### [address] [address] Sodium [Moles/Vol] 153 mmol/L High 133-142 [facility] Comment on above: Order Comment: until sodium normalized Performed By: #### C D:[id number] #### [address] [address] Urea nitrogen [Mass/Vol] 33 mg/dL High 8-26 [facility] Comment on above: Order Comment: until sodium normalized Performed By: #### C D:[id number] #### [address] [address] Urea nitrogen/Creatinine [Mass ratio] 28.9 mg/mg High 10.0-20.0 [facility] Comment on above: Order Comment: until sodium normalized Performed By: #### C D:[id number] #### [address] [address] Blood Gas Arterialon 05- 023 Base Excess Art 6.0 mEq/L High -2.0-2.0 [facility] Comment on above: Performed By: #### C D:[id number] #### [address] [address] BG Emigdio Test Satisfactory Normal [facility] Comment on above: Performed By: #### C D:[id number] #### [address] [address] BG Collection Site Rt Rad Normal [facility] Comment on above: Performed By: #### C D:[id number] #### [address] [address] Carboxyhemoglobin Arterial 1.0 % total Normal 0.0-2.0 [facility] Comment on above: Performed By: #### C D:[id number] #### [address] [address] Hb Totl Arterial 9.3 g% Low 12.0-16.0 [facility] Comment on above: Performed By: #### C D:[id number] #### [address] [address] HbO2 Art 97 % total Normal 94-100 [facility] Comment on above: Performed By: #### C D:[id number] #### [address] [address] HCO3 (Bld) [Moles/Vol] 32 mmol/L High 21-27 Bl [facility] Comment on above: Performed By: #### C D:[id number] #### [address] [address] Met Hb Arterial 0.6 % total Normal 0.0-2.0 [facility] Comment on above: Performed By: #### C D:[id number] #### [address] [address] O2 Meth O2 Normal [facility] Comment on above: Performed By: #### C D:[id number] #### [address] [address] pCO2 Art 55 mmHg High 35-45 [facility] Comment on above: Performed By: #### C D:[id number] #### [address] [address] pH Art 7.38 Normal 7.35-7.45 [facility] Comment on above: Performed By: #### C D:[id number] #### [address] [address] pO2 Art 112 mmHg High 80-100 [facility] Comment on above: Performed By: #### C D:[id number] #### [address] [address] CBC w/ Diffon 10-09-2022 Erythrocyte distribution width (RBC) [Ratio] 16.4 % High 11.6-14.8 [facility] Comment on above: Performed By: #### B PHYSICIAN ADVISOR #### [address] [address] Hematocrit (Bld) [Volume fraction] 29.2 % Low 36.0-46.0 [facility] Comment on above: Performed By: #### B PHYSICIAN ADVISOR #### [address] [address] Hemoglobin (Bld) [Mass/Vol] 9.7 g/dL Low 12.0-16.0 [facility] Comment on above: Performed By: #### B PHYSICIAN ADVISOR #### [address] [address] MCH (RBC) [Entitic mass] 31.3 pg Normal 27.0-35.0 [facility] Comment on above: Performed By: #### B PHYSICIAN ADVISOR #### [address] [address] MCHC 33.2 % Normal 31.0-37.0 [facility] Comment on above: Performed By: #### B PHYSICIAN ADVISOR #### [address] [address] MCV (RBC) [Entitic vol] 94.1 fL Normal 80.0-100.0 [facility] Comment on above: Performed By: #### B PHYSICIAN ADVISOR #### [address] [address] Platelet 187 x10*3/mcL Normal 150-350 [facility] Comment on above: Performed By: #### B PHYSICIAN ADVISOR #### [address] [id number] Platelet mean volume (Bld) [Entitic vol] 8.5 fL Normal 6.7-10.6 [facility] Comment on above: Performed By: #### B PHYSICIAN ADVISOR #### [address] [place] [address] RBC 3.10 x10*6/mcL Low 3.80-5.20 [facility] Comment on above: Performed By: #### B PHYSICIAN ADVISOR #### [address] [place] WBC 5.8 x10*3/mcL Normal 4.5-11.0 [facility] Comment on above: Performed By: #### B PHYSICIAN ADVISOR #### [address] [address] CMPon 10-09-2022 Albumin [Mass/Vol] 3.2 g/dL Normal 3.2-4.9 [facility] Comment on above: Performed By: #### C OMP #### [place] [id number] Albumin/Globulin [Mass ratio] 1.1 {ratio} Normal 1.1-2.2 [facility] Comment on above: Performed By: #### C OMP #### [address] [address] Alk Phos 75 IU/L Normal 32-91 [facility] Comment on above: Performed By: #### C OMP #### [address] [address] ALT [Catalytic activity/Vol] 27 U/L Normal 14-54 [facility] Comment on above: Performed By: #### C OMP #### [address] [address] Anion gap [Moles/Vol] 10 mmol/L Normal 7-17 [facility] Comment on above: Performed By: #### C OMP #### [address] [address] AST [Catalytic activity/Vol] 24 U/L Normal 15-41 [facility] Comment on above: Performed By: #### C OMP #### [address] [address] Bili Total 0.9 mg/dL Normal 0.3-1.2 [facility] Comment on above: Performed By: #### C OMP #### [address] [address] Calcium [Mass/Vol] 9.4 mg/dL Normal 8.5-10.3 [facility] Comment on above: Performed By: #### C OMP #### [address] [address] Chloride [Moles/Vol] 117 mmol/L High 98-110 [facility] Comment on above: Performed By: #### C OMP #### [address] [place] [address] CO2 [Moles/Vol] 28 mmol/L Normal 22-32 [facility] Comment on above: Performed By: #### C OMP #### [address] [address] Creatinine [Mass/Vol] 0.95 mg/dL Normal 0.44-1.03 [facility] Comment on above: Performed By: #### C OMP #### [address] [place] [address] Glucose [Mass/Vol] 150 mg/dL High 70-99 [facility] Comment on above: Performed By: #### C OMP #### [address] [address] Potassium [Moles/Vol] 3.3 mmol/L Low 3.4-4.8 [facility] Comment on above: Performed By: #### C OMP #### [address] [address] Protein [Mass/Vol] 6.1 g/dL Low 6.5-8.1 [facility] Comment on above: Performed By: #### C OMP #### [address] [address] Sodium [Moles/Vol] 152 mmol/L High 133-142 [facility] Comment on above: Performed By: #### C OMP #### [address] [address] Urea nitrogen [Mass/Vol] 33 mg/dL High 8-26 [facility] Comment on above: Performed By: #### C OMP #### [address] [address] Urea nitrogen/Creatinine [Mass ratio] 34.7 mg/mg High 10.0-20.0 [facility] Comment on above: Performed By: #### C OMP #### [address] [address] Diff Autoon 10-09-2022 Baso Absolute 0.0 x10*3/mcL Normal 0.0-0.2 [facility] Comment on above: Performed By: #### . Automated Diff ####[address] [address] Basophils/100 WBC (Bld) 0.6 % Normal 0.0-1.5 [facility] Comment on above: Performed By: #### . Automated Diff ####[address] [address] Eos Absolute 0.1 x10*3/mcL Normal 0.0-0.4 [facility] Comment on above: Performed By: #### . Automated Diff ####[address] [address] Eosinophils/100 WBC (Bld) 2.5 % Normal 0.0-5.4 [facility] Comment on above: Performed By: #### . Automated Diff ####[address] [address] Lymph Absolute 0.8 x10*3/mcL Low 1.0-4.8 [facility] Comment on above: Performed By: #### . Automated Diff ####[address] [address] Lymphocytes/100 WBC (Bld) 14.5 % Low 27.2-40.8 [facility] Comment on above: Performed By: #### . Automated Diff ####[address] [address] [place] Absolute 0.3 x10*3/mcL Normal 0.1-1.1 [facility] Comment on above: Performed By: #### . Automated Diff ####[address] [address] Monocytes/100 WBC (Bld) 5.8 % Normal 3.7-11.9 [facility] Comment on above: Performed By: #### . Automated Diff ####[address] [address] Neutro Absolute 4.5 x10*3/mcL Normal 1.8-7.7 [facility] Comment on above: Performed By: #### . Automated Diff ####[address] [address] Neutro Auto 76.6 % High 47.2-70.8 [facility] Comment on above: Performed By: #### . Automated Diff ####[address] [address] Lactic Acid, Initial w/Rflx 3 Houron 05-10-2023 Lactic Acid, Initial 1.4 mmol/L Normal 0.5-2.0 [facility] Comment on above: Performed By: #### C D:[id number] ####[address] [address] MRSA, PCRon 10-09-2022 LAB ONLY Result Called? No Normal [facility] Comment on above: Performed By: #### B PHYSICIAN ADVISOR #### [address] [address] Methicillin Resistant Staph aurus(MRSA) Not detected Normal Not Detected [facility] [facility] Comment on above: Result Comment: Mut ations or polymorphisms in primer or probe binding regions may affect detection of new or unknown MRSA variants resulting in a false negative. The [employer] Xpert MRSA Assay is a qualitative in [...] to the clinician. Performed By: #### B PHYSICIAN ADVISOR #### [address] [address] Magnesiumon 10-09-2022 Magnesium [Mass/Vol] 1.5 mg/dL Low 1.7-2.4 [facility] Comment on above: Performed By: #### C [id number] #### [address] [address] Myoglobinon 10-09-2022 Myoglobin [Mass/Vol] 37.1 ng/mL Normal [facility] Comment on above: Performed By: #### C OMP #### [address] [address] Osmol,Serumon 10-09-2022 Serum Osmolality 319 mOsm/kg High 280-295 [facility] Comment on above: Performed By: #### C [id number] #### [address] [address] Outside Hospital Correspo ndenceon 10-09-2022 Outside Hospital Correspondence [id number]:[id number] Normal [facility] PTon 10-09-2022 INR Coag (PPP) [Relative time] 1.1 {INR} Normal <=3.5 [facility] Comment on above: Result Comment: INR has no normal range. INR Therapeutic range is: 2.0-3.0 (AF, CVA, TIAs, DVT prophylaxis, acute DVT) 2.5-3.5 ([facility] heart valves, recurrent thrombosis/emboli) Performed By: #### C [id number] #### [address] [address] PT Coag (PPP) [Time] 11.5 s Normal 9.3-11.9 [facility] Comment on above: Performed By: #### C [id number] #### [address] [address] PTTon 10-09-2022 aPTT Coag (Bld) [Time] 29.1 s Normal 20.6-29.2 [facility] Comment on above: Performed By: #### C OMP #### [address] [address] Phosphoruson 10-09-2022 Phosphate [Mass/Vol] 2.8 mg/dL Normal 2.5-4.6 [facility] Comment on above: Performed By: #### C [id number] #### [address] [address] TSHon 10-09-2022 TSH Qn 0.97 m[IU]/L Normal 0.45-5.33 [facility] Comment on above: Result Comment: Refe rence Ranges for individuals from to 18 years of age were obtained from The Inna Asencio Handbook (20 ed) published by [facility]. Reference Ranges for Females: Females, 1st Trimester 0.05 ? 3.7 uIU/mL Females, 2nd Trimester 0.31 ? 4.35 uIU/mL Females, 3rd Trimester 0.41 ? 5.18 uIU/mL Performed By: #### C [id number] #### [address] [address] Troponin-Ion 10-09-2022 Troponin I.cardiac [Mass/Vol] ng/mL Normal 0.00-0.03 [facility] Comment on above: Result Comment: An i ncreased Troponin-I value, in the absence of myocardial ischemia, may indicate other etiologies of cardiac damage. Performed By: #### C [id number] #### [address] [address] U Lyteson 10-09-2022 Chloride [Moles/Vol] 175 mmol/L Normal [facility] Comment on above: Performed By: #### C OMP #### [address] [address] Potassium [Moles/Vol] 62.0 mmol/L Normal [facility] Comment on above: Performed By: #### C OMP #### [address] [address] Sodium [Moles/Vol] 150 mmol/L Normal [facility] Comment on above: Performed By: #### C OMP #### [address] [address] U Osmolon 10-09-2022 Urine Osmolality 593 mOsm/kg H2O Normal 50-1200 [facility] Comment on above: Order Comment: Pleas e obtain urine and serum testing together. Place [place], drain bladder, then obtain sample. Performed By: #### B PHYSICIAN ADVISOR #### [address] [address] UA w Culture if Indon 2022 Color (U) Yellow Normal [facility] Comment on above: Performed By: #### U CI #### [address] [place] [address] Ketones Ql (U) 10 mg/dL Abnormal Negative [facility] Comment on above: Performed By: #### U CI #### [address] [place] [address] UA Blood Negative Normal Negative [facility] Comment on above: Performed By: #### U CI #### [address] [place] [address] UA Clarity Turbid Normal [facility] Comment on above: Performed By: #### U CI #### [address] [place] [address] UA Glucose Normal Normal Negative [facility] Comment on above: Performed By: #### U CI #### [address] [place] [address] UA Leukocyte Esterase 500 Abnormal Negative [facility] Comment on above: Performed By: #### U CI #### [address] [address] UA Nitrite Negative Normal Negative [facility] Comment on above: Performed By: #### U CI #### [address] [place] [address] UA pH 5.0 Normal 4.5 - 7.8 [facility] Comment on above: Performed By: #### U CI #### [address] [place] [address] UA Protein 30 mg/dL Abnormal Negative [facility] Comment on above: Performed By: #### U CI #### [address] [place] [address] UA Source Catheter Normal [facility] Comment on above: Performed By: #### U CI #### [address] [place] [address] UA Spec Grav 1.026 Normal 1.003-1.035 [facility] Comment on above: Performed By: #### U CI #### [facility] [address] [place] [address] UA Urobilinogen Normal Normal 0.2 - 1.0 [facility] Comment on above: Performed By: #### U CI #### [facility] [address] [place] [address] Urobilinogen (U) [Mass/Vol] Negative Normal Negative [facility] Comment on above: Performed By: #### U CI #### [facility] [address] [place] [address] XR Chest 1 Viewon 10-09-2022 XR Chest [...] in Other Vendor System) Normal [facility] Basic Metabolic Panelon 05 Anion gap [Moles/Vol] 10 mmol/L 9 - 17 mmol/L [facility] [employer] Calcium [Mass/Vol] 10.3 mg/dL 8.6 - 10. 4 mg/dL [facility] Chloride [Moles/Vol] 116 mmol/L High 98 - 10 7 mmol/L [facility] CO2 [Moles/Vol] 29 mmol/L 20 - 31 mmol/L [facility] Creatinine [Mass/Vol] 0.94 mg/dL High 0.50 - 0.90 mg/dL [facility] GFR/1.73 sq M.predicted MDRD (S/P/Bld) [Vol rate/Area] - PINF [facility] Comment on above: These results are [...] 144 mg/dL High 70 - 99 mg/dL [facility] Interpretation and review of laboratory results Abnormal [facility] [employer] Potassium [Moles/Vol] 3.3 mmol/L Low 3.7 - 5.3 mmol/L [facility] Sodium [Moles/Vol] 155 mmol/L High 135 - 144 mmol/L [facility] Urea nitrogen [Mass/Vol] 35 mg/dL High 8 - 23 mg/dL [facility] Urea nitrogen/Creatinine (Bld) [Mass ratio] 37 High 9 - 20 [facility] Anion gap [Moles/Vol] 10 mmol/L 9 - 17 mmol/L [facility] [employer] Calcium [Mass/Vol] 10.5 mg/dL High 8.6 - 10. 4 mg/dL [facility] Chloride [Moles/Vol] 116 mmol/L High 98 - 10 7 mmol/L [facility] [employer] CO2 [Moles/Vol] 29 mmol/L 20 - 31 mmol/L [facility] Creatinine [Mass/Vol] 0.87 mg/dL 0.50 - 0.90 mg/dL [facility] [employer] GFR/1.73 sq M.predicted MDRD (S/P/Bld) [Vol rate/Area] - PINF [facility] Comment on above: These results are not [...] 136 mg/dL High 70 - 99 mg/dL [facility] Interpretation and review of laboratory results Abnormal [facility] Potassium [Moles/Vol] 3.4 mmol/L Low 3.7 - 5.3 mmol/L [facility] Sodium [Moles/Vol] 155 mmol/L High 135 - 144 mmol/L [facility] Urea nitrogen [Mass/Vol] 35 mg/dL High 8 - 23 mg/dL [facility] Urea nitrogen/Creatinine (Bld) [Mass ratio] 40 High 9 - 20 [facility] Anion gap [Moles/Vol] 11 mmol/L 9 - 17 mmol/L [facility] Calcium [Mass/Vol] 10.8 mg/dL High 8.6 - 10. 4 mg/dL [facility] Chloride [Moles/Vol] 113 mmol/L High 98 - 10 7 mmol/L [facility] CO2 [Moles/Vol] 28 mmol/L 20 - 31 mmol/L [facility] Creatinine [Mass/Vol] 0.94 mg/dL High 0.50 - 0.90 mg/dL [facility] GFR/1.73 sq M.predicted MDRD (S/P/Bld) [Vol rate/Area] - PINF [facility] Comment on above: These results are [...] 129 mg/dL High 70 - 99 mg/dL [facility] Interpretation and review of laboratory results Abnormal [facility] Potassium [Moles/Vol] 3.5 mmol/L Low 3.7 - 5.3 mmol/L [facility] Sodium [Moles/Vol] 152 mmol/L High 135 - 144 mmol/L [facility] Urea nitrogen [Mass/Vol] 38 mg/dL High 8 - 23 mg/dL [facility] Urea nitrogen/Creatinine (Bld) [Mass ratio] 40 High 9 - 20 [facility] Anion gap [Moles/Vol] 9 mmol/L 9 - 17 mmol/L [facility] Calcium [Mass/Vol] 10.7 mg/dL High 8.6 - 10. 4 mg/dL [facility] Chloride [Moles/Vol] 118 mmol/L High 98 - 10 7 mmol/L [facility] CO2 [Moles/Vol] 30 mmol/L 20 - 31 mmol/L [facility] Creatinine [Mass/Vol] 0.97 mg/dL High 0.50 - 0.90 mg/dL [facility] GFR/1.73 sq M.predicted MDRD (S/P/Bld) [Vol rate/Area] - PINF [facility] Comment on above: These results are [...] [Mass/Vol] 78 mg/dL 70 - 99 mg/dL [facility] Interpretation and review of laboratory results Abnormal [facility] Potassium [Moles/Vol] 4.1 mmol/L 3.7 - 5.3 mmol/L [facility] Sodium [Moles/Vol] 157 mmol/L High 135 - 144 mmol/L [facility] Urea nitrogen [Mass/Vol] 37 mg/dL High 8 - 23 mg/dL [facility] Urea nitrogen/Creatinine (Bld) [Mass ratio] 38 High 9 - 20 [facility] Basic Metabolic Profon 10-08 Anion gap [Moles/Vol] 10 mmol/L Normal 9-17 [facility] Comment on above: Performed By: #### L IPR #### [address] [address] Lease Examiner: Jersey Dahl MD #### CDP, CP #### [facility] [address] [place], [place] [id number] Lease Examiner: Kayley Doll MD BUN/CRE Ratio 40 High 9-20 [facility] Comment on above: Performed By: #### L IPR #### [address] [address] Lease Examiner: Jersey Dahl MD #### CDP, CP #### [facility] [address] [place] [address] Lease Examiner: Kayley Doll MD Calcium [Mass/Vol] 10.5 mg/dL High 8.6-10.4 [facility] Comment on above: Performed By: #### L IPR #### [address] [address] Lease Examiner: Jersey Dahl MD #### CDP, CP #### [facility] [address] [place] [address] [place] [address] Lease Examiner: Kayley Doll MD Chloride [Moles/Vol] 116 mmol/L High 98-107 [facility] Comment on above: Performed By: #### L IPR #### [address] [address] Lease Examiner: Jersey Dahl MD #### CDP, CP #### [facility] [address] [place], [place] [phone] Lease Examiner: Kayley Doll MD CO2 [Moles/Vol] 29 mmol/L Normal 20-31 [facility] Comment on above: Performed By: #### L IPR #### [address] [address] Lease Examiner: Jersey Dahl MD #### CDP, CP #### [address] [place], [place] 777[address]83 Lease Examiner: Kayley Doll MD Creatinine [Mass/Vol] 0.87 mg/dL Normal 0.50-0.90 [facility] Comment on above: Performed By: #### L IPR #### [address] [address] Lease Examiner: Jersey Dahl MD #### CDP, CP #### [address] [place], [place] 335[address]83 Lease Examiner: Kayley Doll MD GFR/1.73 sq M.predicted among non-blacks MDRD (S/P/Bld) [Vol rate/Area] mL/min/{1.73_m2} Normal >60 [facility] Comment on above: Result Comment: These results [...] secretion. Performed By: #### L IPR #### [address] [address] Lease Examiner: Jersey Dahl MD #### CDP, CP #### [address] [place], [place] [phone] Lease Examiner: Kayley Doll MD Glucose [Mass/Vol] 136 mg/dL High 70-99 [facility] Comment on above: Performed By: #### L IPR #### [address] [address] Lease Examiner: Jersey Dahl MD #### CDP, CP #### [address] [place], [place] [phone] Lease Examiner: Kayley Doll MD Potassium [Moles/Vol] 3.4 mmol/L Low 3.7-5.3 [facility] Comment on above: Performed By: #### L IPR #### [address] [address] Lease Examiner: Jersey Dahl MD #### CDP, CP #### [facility] [address] [place], [place] 3245783 Lease Examiner: Kayley Doll MD Sodium [Moles/Vol] 155 mmol/L High 135-144 [facility] Comment on above: Performed By: #### L IPR #### [address] [address] Lease Examiner: Jersey Dahl MD #### CDP, CP #### [address] [place], [place] 4982783 Lease Examiner: Kayley Doll MD Urea nitrogen [Mass/Vol] 35 mg/dL High 8-23 [facility] Comment on above: Performed By: #### L IPR #### [address] [address] Lease Examiner: Jersey Dahl MD #### CDP, CP #### [address] [place], [place] 4463883 Lease Examiner: Kayley Doll MD Anion gap [Moles/Vol] 11 mmol/L Normal 9-17 [facility] Comment on above: Performed By: #### L IPR #### [address] [address] Lease Examiner: Jersey Dahl MD #### CDP, CP #### [facility] [address] [place] [address] [place] [place], [place] [phone] Lease Examiner: Kayley Doll MD BUN/CRE Ratio 40 High 9-20 [facility] Comment on above: Performed By: #### L IPR #### [address] [address] Lease Examiner: Jersey Dahl MD #### CDP, CP #### [address] [place], [place] [phone] Lease Examiner: Kayley Doll MD Calcium [Mass/Vol] 10.8 mg/dL High 8.6-10.4 [facility] Comment on above: Performed By: #### L IPR #### [address] [address] Lease Examiner: Jersey Dahl MD #### CDP, CP #### [address] [place], [place] 1837183 Lease Examiner: Kayley Doll MD Chloride [Moles/Vol] 113 mmol/L High 98-107 [facility] Comment on above: Performed By: #### L IPR #### [address] [address] Lease Examiner: Jersey Dahl MD #### CDP, CP #### [address] [place], [place] [phone] Lease Examiner: Kayley Doll MD CO2 [Moles/Vol] 28 mmol/L Normal 20-31 [facility] Comment on above: Performed By: #### L IPR #### [address] [address] Lease Examiner: Jersey Dahl MD #### CDP, CP #### [facility] [address] [place] [address] [place] [address] Lease Examiner: Kayley Doll MD Creatinine [Mass/Vol] 0.94 mg/dL High 0.50-0.90 [facility] Comment on above: Performed By: #### L IPR #### [address] [address] Lease Examiner: Jersey Dahl MD #### CDP, CP #### [address] [place] [address] Lease Examiner: Kayley Doll MD GFR/1.73 sq M.predicted among non-blacks MDRD (S/P/Bld) [Vol rate/Area] mL/min/{1.73_m2} Normal >60 [facility] Comment on above: Result Comment: These results [...] secretion. Performed By: #### L IPR #### [address] [id number] Lease Examiner: Jersey Dahl MD #### CDP, CP #### [address] [place] [place] [address] Lease Examiner: Kayley Doll MD Glucose [Mass/Vol] 129 mg/dL High 70-99 [facility] Comment on above: Performed By: #### L IPR #### [address] [address] Lease Examiner: Jersey Dahl MD #### CDP, CP #### [address] [place] [phone] Lease Examiner: Kayley Doll MD Potassium [Moles/Vol] 3.5 mmol/L Low 3.7-5.3 [facility] Comment on above: Performed By: #### L IPR #### [address] [address] Lease Examiner: Jersey Dahl MD #### CDP, CP #### [address] [place] [address] Lease Examiner: Kayley Doll MD Sodium [Moles/Vol] 152 mmol/L High 135-144 [facility] Comment on above: Performed By: #### L IPR #### [facility] [address] [place] [address] Lease Examiner: Jersey Dahl MD #### CDP, CP #### [facility] [address] [place], [place] [phone] Lease Examiner: Kayley Doll MD Urea nitrogen [Mass/Vol] 38 mg/dL High 8-23 [facility] Comment on above: Performed By: #### L IPR #### [address] [address] Lease Examiner: Jersey Dahl MD #### CDP, CP #### [address] [place], [place] [phone] Lease Examiner: Kayley Doll MD Anion gap [Moles/Vol] 9 mmol/L Normal 9-17 [facility] Comment on above: Performed By: #### L IPR #### [address] [address] Lease Examiner: Jersey Dahl MD #### CDP, CP #### [facility] [address] [place] [address] [place] [place], [place] [phone] Lease Examiner: Kayley Doll MD BUN/CRE Ratio 38 High 9-20 [facility] Comment on above: Performed By: #### L IPR #### [address] [address] Lease Examiner: Jersey Dahl MD #### CDP, CP #### [facility] [address] [place] [address] [place], [place] [phone] Lease Examiner: Kayley Doll MD Calcium [Mass/Vol] 10.7 mg/dL High 8.6-10.4 [facility] Comment on above: Performed By: #### L IPR #### [address] [address] Lease Examiner: Jersey Dahl MD #### CDP, CP #### [facility] [address] [place], [place] [phone] Lease Examiner: Kalyey Doll MD Chloride [Moles/Vol] 118 mmol/L High 98-107 [facility] Comment on above: Performed By: #### L IPR #### [address] [address] Lease Examiner: Jersey Dahl MD #### CDP, CP #### [facility] [address] [place] [address] [place] [place], [place] [phone] Lease Examiner: Kayley Doll MD CO2 [Moles/Vol] 30 mmol/L Normal 20-31 [facility] Comment on above: Performed By: #### L IPR #### [address] [address] Lease Examiner: Jersey Dahl MD #### CDP, CP #### [address] [place] [place] [address] Lease Examiner: Kayley Doll MD Creatinine [Mass/Vol] 0.97 mg/dL High 0.50-0.90 [facility] Comment on above: Performed By: #### L IPR #### [address] [address] Lease Examiner: Jersey Dahl MD #### CDP, CP #### [facility] [address] [place] [address] Lease Examiner: Kayley Doll MD GFR/1.73 sq M.predicted among non-blacks MDRD (S/P/Bld) [Vol rate/Area] mL/min/{1.73_m2} Normal >60 [facility] Comment on above: Result Comment: These results [...] secretion. Performed By: #### L IPR #### [address] [address] Lease Examiner: Jersey Dahl MD #### CDP, CP #### [address] [place] [address] Lease Examiner: Kayley Doll MD Glucose [Mass/Vol] 78 mg/dL Normal 70-99 [facility] Comment on above: Performed By: #### L IPR #### [address] [address] Lease Examiner: Jersey Dahl MD #### CDP, CP #### [address] [place] [address] Lease Examiner: Kayley Doll MD Potassium [Moles/Vol] 4.1 mmol/L Normal 3.7-5.3 [facility] Comment on above: Performed By: #### L IPR #### [address] [address] Lease Examiner: Jersey Dahl MD #### CDP, CP #### [address] [place], [place] [phone] Lease Examiner: Kayley Doll MD Sodium [Moles/Vol] 157 mmol/L High 135-144 [facility] Comment on above: Performed By: #### L IPR #### [address] [address] Lease Examiner: Jersey Dahl MD #### CDP, CP #### [address] [place] [place] [address] Lease Examiner: Kayley Doll MD Urea nitrogen [Mass/Vol] 37 mg/dL High 8-23 [facility] Comment on above: Performed By: #### L IPR #### [facility] [address] [place], [place] [phone] Lease Examiner: Jersey Dahl MD #### CDP, CP #### [facility] [address] [address] Lease Examiner: Kayley Doll MD CBC with Auto Differentialon 10-08-2022 Absolute Eos # 0.06 EXCEL S [facility] Absolute Immature Granulocyte 0.03 [facility] Absolute Lymph # 0.68 Low [facility] Absolute [place] # 0.32 [facility] RS [facility] Basophils (Bld) [#/Vol] 0.03 10*3/uL [facility] Basophils/100 WBC (Bld) 0 % 0 - 2 % [facility] Eosinophils/100 WBC (Bld) 1 % 1 - 4 % [facility] Hematocrit (Bld) [Volume fraction] 35.0 % Low 36.3 - 47.1 % [facility] Hemoglobin (Bld) [Mass/Vol] 11.0 g/dL Low 11.9 - 15.1 g/dL [facility] Immature granulocytes/100 WBC (Bld) 0 % 0 [facility] Interpretation and review of laboratory results Abnormal [facility] Lymphocytes/100 WBC (Bld) 10 % Low 24 - 43 % [facility] MCH (RBC) [Entitic mass] 30.9 pg 25.2 - 33.5 pg [facility] MCHC (RBC) [Mass/Vol] 31.4 g/dL 28.4 - 34.8 g/dL [facility] MCV (RBC) [Entitic vol] 98.3 fL 82.6 - 102.9 fL [facility] Monocytes/100 WBC (Bld) 5 % 3 - 12 % [facility] NRBC Automated 0.0 0.0 per 100 WBC [facility] Platelet distribution width (Bld) [Ratio] 15.5 % High 11.8 - 14.4 % [facility] Platelet mean volume (Bld) [Entitic vol] 10.2 fL 8.1 - 13.5 fL [facility] Platelets (Bld) [#/Vol] 203 10*3/uL [facility] RBC (Bld) [#/Vol] 3.56 10*6/uL Low 3.95 - 5.1 1 m/uL [facility] Segmented neutrophils/100 WBC (Bld) 84 % High 36 - 65 % [facility] Segs Absolute 5.86 [facility] WBC (Bld) [#/Vol] 7.0 10*3/uL [facility] CBC with Diffon 10-08-2022 Abs. Basophil 0.03 k/uL Normal 0.00-0.20 [facility] Comment on above: Performed By: #### L IPR #### [place] [address] Lease Examiner: Jersey Dahl MD #### CDP, CP #### [facility] [address] [place] [address] [place] [phone] Lease Examiner: Kayley Doll MD Abs.Imm.Granulocyte 0.03 k/uL Normal 0.00-0.30 [facility] Comment on above: Performed By: #### L IPR #### [place] [address] Lease Examiner: Jersey Dahl MD #### CDP, CP #### [facility] [address] [place] [phone] Lease Examiner: Kayley Doll MD Abs.Neutrophil (Seg) 5.86 k/uL Normal 1.50-8.10 [facility] Comment on above: Performed By: #### L IPR #### [address] [address] Lease Examiner: Jersey Dahl MD #### CDP, CP #### [address] [place], [place] 1543983 Lease Examiner: Kayley Doll MD Basophils/100 WBC (Bld) 0 % Normal 0-2 [facility] Comment on above: Performed By: #### L IPR #### [address] [address] Lease Examiner: Jersey Dahl MD #### CDP, CP #### [address] [place], [place] 0739783 Lease Examiner: Kayley Doll MD Eosinophils (Bld) [#/Vol] 0.06 10*3/uL Normal 0.00-0.44 [facility] Comment on above: Performed By: #### L IPR #### [address] [address] Lease Examiner: Jersey Dahl MD #### CDP, CP #### [address] [place] [phone] Lease Examiner: Kayley Doll MD Eosinophils/100 WBC (Bld) 1 % Normal 1-4 [facility] Comment on above: Performed By: #### L IPR #### [address] [address] Lease Examiner: Jersey Dahl MD #### CDP, CP #### [address] [place] [phone] Lease Examiner: Kayley Doll MD Erythrocyte distribution width (RBC) [Ratio] 15.5 % High 11.8-14.4 [facility] Comment on above: Performed By: #### L IPR #### [address] [address] Lease Examiner: Jersey Dahl MD #### CDP, CP #### [address] [place] [id number] Lease Examiner: Kayley Doll MD Hematocrit (Bld) [Volume fraction] 35.0 % Low 36.3-47.1 [facility] Comment on above: Performed By: #### L IPR #### [address] [address] Lease Examiner: Jersey Dahl MD #### CDP, CP #### [address] [place] [phone] Lease Examiner: Kayley Doll MD Hemoglobin (Bld) [Mass/Vol] 11.0 g/dL Low 11.9-15.1 [facility] Comment on above: Performed By: #### L IPR #### [address] [address] Lease Examiner: Jersey Dahl MD #### CDP, CP #### [address] [place] [phone] Lease Examiner: Kayley Doll MD Immature granulocytes/100 WBC (Bld) 0 % Normal 0 [facility] Comment on above: Performed By: #### L IPR #### [address] [address] Lease Examiner: Jersey Dahl MD #### CDP, CP #### [address] [place] [phone] Lease Examiner: Kayley Doll MD Lymphocytes (Bld) [#/Vol] 0.68 10*3/uL Low 1.10-3.70 [facility] Comment on above: Performed By: #### L IPR #### [address] [address] Lease Examiner: Jersey Dahl MD #### CDP, CP #### [address] [place] [phone] Lease Examiner: Kayley Doll MD Lymphocytes/100 WBC (Bld) 10 % Low 24-43 [facility] Comment on above: Performed By: #### L IPR #### [address] [address] Lease Examiner: Jersey Dahl MD #### CDP, CP #### [facility] [address] [place] [address] Dr. [place] [phone] Lease Examiner: Kayley Doll MD MCH (RBC) [Entitic mass] 30.9 pg Normal 25.2-33.5 [facility] Comment on above: Performed By: #### L IPR #### [address] [address] Lease Examiner: Jersey Dahl MD #### CDP, CP #### [address] [place] [phone] Lease Examiner: Kayley Doll MD MCHC (RBC) [Mass/Vol] 31.4 g/dL Normal 28.4-34.8 [facility] Comment on above: Performed By: #### L IPR #### [address] [address] Lease Examiner: Jersey Dahl MD #### CDP, CP #### [address] [place] [phone] Lease Examiner: Kayley Doll MD MCV (RBC) [Entitic vol] 98.3 fL Normal 82.6-102.9 [facility] Comment on above: Performed By: #### L IPR #### [address] [address] Lease Examiner: Jersey Dahl MD #### CDP, CP #### [address] [place] [phone] Lease Examiner: Kayley Doll MD Monocytes (Bld) [#/Vol] 0.32 10*3/uL Normal 0.10-1.20 [facility] Comment on above: Performed By: #### L IPR #### [address] [address] Lease Examiner: Jersey Dahl MD #### CDP, CP #### [facility] [address] [place] [address] Dr. [place], [place] [phone] Lease Examiner: Kayley Doll MD Monocytes/100 WBC (Bld) 5 % Normal 3-12 [facility] Comment on above: Performed By: #### L IPR #### [address] [address] Lease Examiner: Jersey Dahl MD #### CDP, CP #### [address] [place] [phone] Lease Examiner: Kayley Doll MD Neutrophil (Seg) 84 % High 36-65 [facility] Comment on above: Performed By: #### L IPR #### [address] [address] Lease Examiner: Jersey Dahl MD #### CDP, CP #### [address] [place], [place] [phone] Lease Examiner: Kayley Doll MD NRBC Automated 0.0 per 100 WBC Normal 0.0 [facility] Comment on above: Performed By: #### L IPR #### [address] [address] Lease Examiner: Jersey Dahl MD #### CDP, CP #### [address] [place] [phone] Lease Examiner: Kayley Doll MD Platelet mean volume (Bld) [Entitic vol] 10.2 fL Normal 8.1-13.5 [facility] Comment on above: Performed By: #### L IPR #### [address] [place] [address] Lease Examiner: Jersey Dahl MD #### CDP, CP #### [address] [place] [address] Lease Examiner: Kayley Doll MD Platelets (Bld) [#/Vol] 203 10*3/uL Normal 138-453 [facility] Comment on above: Performed By: #### L IPR #### [address] [address] Lease Examiner: Jersey Dahl MD #### CDP, CP #### [address] [place] [address] Lease Examiner: Kayley Doll MD RBC (Bld) [#/Vol] 3.56 10*6/uL Low 3.95-5.11 [facility] Comment on above: Performed By: #### L IPR #### [address] [address] Lease Examiner: Jersey Dahl MD #### CDP, CP #### [address] [place] [place] [address] Lease Examiner: Kayley Doll MD WBC (Bld) [#/Vol] 7.0 10*3/uL Normal 3.5-11.3 [facility] Comment on above: Performed By: #### L IPR #### [address] [address] Lease Examiner: Jersey Dahl MD #### CDP, CP #### [address] [place] [address] Lease Examiner: Kayley Doll MD CT HEAD WO CONTRASTon [...] Jay Horn MD 10/08/22 Final result Normal [facility] CT Head WO Contraston 2022 No acute intracrania l abnormality. [facility] EXAMINATION: CT OF THE HEAD WITHOUT CONTRAST [...] of the visualized skull or soft tissues. [facility] Jay Horn MD - 10/08/2022 EXAMINATION: CT [...] soft tissues. IMPRESSION: No acute intracranial abnormality. [employer] Phone: Radiology Study observation (narrative) [employer] Phone: CT Head WO ContrastOrdered B y: Jay Horn on 10-08-2022 [employer] Phone: Comp Metabolic Profon 2022 Albumin [Mass/Vol] 4.4 g/dL Normal 3.5-5.2 [facility] Comment on above: Performed By: #### L IPR #### [employer] [address] [place], [place] [phone] Lease Examiner: Jersey Dahl MD #### CDP, CP #### [facility] [address] [address] Lease Examiner: Kayley Doll MD Albumin/Glob Ratio 1.4 Normal 1.0-2.5 [facility] Comment on above: Performed By: #### L IPR #### [facility] [employer] [address] [place] [address] Lease Examiner: Jersey Dahl MD #### CDP, CP #### [facility] [address] [place], [place] [phone] Lease Examiner: Kayley Doll MD Alkaline Phos 111 U/L High 35-104 [facility] Comment on above: Performed By: #### L IPR #### [facility] [address] [place] [address] Lease Examiner: Jersey Dahl MD #### CDP, CP #### [address] [place] [address] Lease Examiner: Kayley Doll MD ALT [Catalytic activity/Vol] 26 U/L Normal 5-33 [facility] Comment on above: Performed By: #### L IPR #### [address] [address] Lease Examiner: Jersey Dahl MD #### CDP, CP #### [address] [place], [place] [phone] Lease Examiner: Kayley Doll MD Anion gap [Moles/Vol] 12 mmol/L Normal 9-17 [facility] Comment on above: Performed By: #### L IPR #### [address] [address] Lease Examiner: Jersey Dahl MD #### CDP, CP #### [address] [place], [place] [phone] Lease Examiner: Kayley Doll MD AST [Catalytic activity/Vol] 23 U/L Normal <32 [facility] Comment on above: Performed By: #### L IPR #### [address] [address] Lease Examiner: Jersey Dahl MD #### CDP, CP #### [address] [place], [place] [phone] Lease Examiner: Kayley Doll MD Bilirubin [Mass/Vol] 0.9 mg/dL Normal 0.3-1.2 [facility] Comment on above: Performed By: #### L IPR #### [address] [address] Lease Examiner: Jersey Dahl MD #### CDP, CP #### [facility] [address] [place], [place] [phone] Lease Examiner: Kayley Doll MD BUN/CRE Ratio 40 High 9-20 [facility] Comment on above: Performed By: #### L IPR #### [address] [address] Lease Examiner: Jersey Dahl MD #### CDP, CP #### [address] [place], [place] [phone] Lease Examiner: Kayley Doll MD Calcium [Mass/Vol] 11.3 mg/dL High 8.6-10.4 [facility] Comment on above: Performed By: #### L IPR #### [address] [address] Lease Examiner: Jersey Dahl MD #### CDP, CP #### [facility] [address] [place] [address] Dr. [place], [place] [phone] Lease Examiner: Kayley Doll MD Chloride [Moles/Vol] 117 mmol/L High 98-107 [facility] Comment on above: Performed By: #### L IPR #### [address] [address] Lease Examiner: Jersey Dahl MD #### CDP, CP #### [address] [place], [place] [phone] Lease Examiner: Kayley Doll MD CO2 [Moles/Vol] 29 mmol/L Normal 20-31 [facility] Comment on above: Performed By: #### L IPR #### [address] [address] Lease Examiner: Jersey Dahl MD #### CDP, CP #### [address] [place] [address] Lease Examiner: Kayley Doll MD Creatinine [Mass/Vol] 0.97 mg/dL High 0.50-0.90 [facility] Comment on above: Performed By: #### L IPR #### [address] [address] Lease Examiner: Jersey Dahl MD #### CDP, CP #### [address] [place] [address] Lease Examiner: Kayley Doll MD GFR/1.73 sq M.predicted among non-blacks MDRD (S/P/Bld) [Vol rate/Area] mL/min/{1.73_m2} Normal >60 [facility] Comment on above: Result Comment: These results [...] secretion. Performed By: #### L IPR #### [address] [address] Lease Examiner: Jersey Dahl MD #### CDP, CP #### [address] [place] [address] Lease Examiner: Kayely Doll MD Glucose [Mass/Vol] 96 mg/dL Normal 70-99 [facility] Comment on above: Performed By: #### L IPR #### [address] [address] Lease Examiner: Jersey Dahl MD #### CDP, CP #### [address] [place], [place] 7122583 Lease Examiner: Kayley Doll MD Potassium [Moles/Vol] 4.1 mmol/L Normal 3.7-5.3 [facility] Comment on above: Performed By: #### L IPR #### [address] [address] Lease Examiner: Jersey Dahl MD #### CDP, CP #### [address] [place], [place] [phone] Lease Examiner: Kayley Doll MD Protein [Mass/Vol] 7.6 g/dL Normal 6.4-8.3 [facility] Comment on above: Performed By: #### L IPR #### [address] [address] Lease Examiner: Jersey Dahl MD #### CDP, CP #### [address] [place], [place] 1654683 Lease Examiner: Kayley Doll MD Sodium [Moles/Vol] 158 mmol/L High 135-144 [facility] Comment on above: Performed By: #### L IPR #### [address] [address] Lease Examiner: Jersey Dahl MD #### CDP, CP #### [address] [place], [place] [phone] Lease Examiner: Kayley Doll MD Urea nitrogen [Mass/Vol] 39 mg/dL High 8-23 [facility] Comment on above: Performed By: #### L IPR #### [address] [address] Lease Examiner: Jersey Dahl MD #### CDP, CP #### [address] [place], [place] [phone] Lease Examiner: Kayley Doll MD [facility] Metabolic Pane [facility] 10-08-2022 Albumin [Mass/Vol] 4.4 g/dL 3.5 - 5.2 g/dL [facility] Albumin/Globulin [Mass ratio] 1.4 {ratio} 1.0 - 2.5 [facility] ALP [Catalytic activity/Vol] 111 U/L High 35 - 104 U/L [facility] ALT [Catalytic activity/Vol] 26 U/L 5 - 33 U/L [facility] Anion gap [Moles/Vol] 12 mmol/L 9 - 17 mmol/L [facility] AST [Catalytic activity/Vol] 23 U/L NINF - 32 U/L [facility] Bilirubin [Mass/Vol] 0.9 mg/dL 0.3 - 1 .2 mg/dL [facility] Calcium [Mass/Vol] 11.3 mg/dL High 8.6 - 10. 4 mg/dL [facility] Chloride [Moles/Vol] 117 mmol/L High 98 - 10 7 mmol/L [facility] CO2 [Moles/Vol] 29 mmol/L 20 - 31 mmol/L [facility] Creatinine [Mass/Vol] 0.97 mg/dL High 0.50 - 0.90 mg/dL [facility] GFR/1.73 sq M.predicted MDRD (S/P/Bld) [Vol rate/Area] - PINF [facility] Comment on above: These results are [...] [Mass/Vol] 96 mg/dL 70 - 99 mg/dL [facility] Interpretation and review of laboratory results Abnormal [facility] Potassium [Moles/Vol] 4.1 mmol/L 3.7 - 5.3 mmol/L [facility] Protein [Mass/Vol] 7.6 g/dL 6.4 - 8.3 g/dL [facility] [employer] Sodium [Moles/Vol] 158 mmol/L High 135 - 144 mmol/L [facility] [employer] Urea nitrogen [Mass/Vol] 39 mg/dL High 8 - 23 mg/dL [facility] [employer] Urea nitrogen/Creatinine (Bld) [Mass ratio] 40 High 9 - 20 [facility] [employer] [facility] [employer] Cult,Urineon 10-08-2022 Cult,Urine Specimen Description .VOIDED URINE Culture CITROBACTER FREUNDII >[id number] CFU/ML Report Status FINAL 10/07/2022 SUSCEPTIBILITY Organism CITRO[employer] FREUNDII Method TIMOTHY Ceftriaxone <=0.25 SUSCEPTIBLE Gentamicin <=1 SUSCEPTIBLE Levofloxacin 1 SUSCEPTIBLE Nitrofurantoin <=16 SUSCEPTIBLE Piperacillin/Tazobact am <=4 SUSCEPTIBLE Tobramycin <=1 SUSCEPTIBLE Trimethoprim/Sulfa <=20 SUSCEPTIBLE Susceptible [facility] Comment on above: Performed By: #### L IPR #### [facility] [address] [place] [address] Lease Examiner: Jersey Dahl MD #### CDP, CP #### [facility] [address] [place] [address] Lease Examiner: Kayley Doll MD EKG 12 LeadOrdered By: Nhan argueta on 10-08-2022 Atrial Rate 57 BPM [facility] Work Phone: P Hinckley 44 degrees [facility] SYSTEM[facility] [employer] Work Phone: P-R Interval 144 ms [facility] Work Phone: Q-T Interval 442 ms [facility] Work Phone: QRS Duration 78 ms [facility] Work Phone: QTc Calculation (Bazett) 430 ms [facility] Work Phone: R [place]inckley 35 degrees [facility] Work Phone: T [place] 25 degrees [facility] Work Phone: Ventricular Rate 57 BPM [facility] [employer] Work Phone: [facility] Work Phone: EKG 12 Leadon 10-08-2022 Poor data quality, interpretation may be adversely affected Sinus bradycardia Otherwise normal ECG No previous ECGs available Confirmed by Nhan June MD ([id number]) on 10/08/2022 5:02:13 PM [facility] RADIOLOGY Nhan June MD - 10/08/2022 Poor data quality, interpretation may be adversely affected Sinus bradycardia Otherwise normal ECG No previous ECGs available Confirmed by Nhan June MD ([id number]) on 10/08/2022 5:02:13 PM [facility] Work Phone: Glucose, Whole Bloodon 10-08 Glucose [Mass/Vol] 94 mg/dL 74 - 100 mg/dL [facility] Microscopic Urinalysison Bacteria, UA 3+ Abnormal None [facility] Epithelial Cells UA 0 TO 2 [facility] Interpretation and review of laboratory results Abnormal [facility] RBC clumps Auto (Urine sed) [#/Area] 0 TO 2 [facility] WBC, UA GREATER THAN [address] [facility] UA w/Reflex Cultureon 2022 Bilirubin, SemiQt,Ur Negative Normal NEG [facility] Comment on above: Performed By: #### L IPR #### [facility] [address] [place] [address] Lease Examiner: Jersey Dahl MD #### CDP, CP #### [facility] [address] [place] [address] Lease Examiner: Kayley Doll MD Blood, Urine 1+ Abnormal NEG [facility] Comment on above: Performed By: #### L IPR #### [facility] [employer] [address] [place] [address] Lease Examiner: Jersey Dahl MD #### CDP, CP #### [address] [place] [address] Lease Examiner: Kayley Doll MD Clarity (U) Clear Normal CLEAR [facility] Comment on above: Performed By: #### L IPR #### [address] [address] Lease Examiner: Jersey Dahl MD #### CDP, CP #### [address] [place] [address] Lease Examiner: Kayley Doll MD Color (U) Yellow Normal YEL [facility] Comment on above: Performed By: #### L IPR #### [address] [address] Lease Examiner: Jersey Dahl MD #### CDP, CP #### [address] [place], [place] [phone] Lease Examiner: Kayley Doll MD Glucose Ql (U) Negative Normal NEG [facility] in [facility] Comment on above: Performed By: #### L IPR #### [address] [address] Lease Examiner: Jersey Dahl MD #### CDP, CP #### [address] [place], [place] [phone] Lease Examiner: Kayley Doll MD Ketones Ql (U) 2+ Abnormal NEG [facility] in Hospital Comment on above: Performed By: #### L IPR #### [address] [address] Lease Examiner: Jersey Dahl MD #### CDP, CP #### [address] [place], [place] 9459383 Lease Examiner: Kayley Doll MD Leukocyte esterase Test strip Ql (U) MODERATE Abnormal NEG [facility] Comment on above: Performed By: #### L IPR #### [address] [address] Lease Examiner: Jersey Dahl MD #### CDP, CP #### [address] [place] [address] Lease Examiner: Kayley Doll MD Nitrite,Ur Positive Abnormal NEG [facility] Comment on above: Performed By: #### L IPR #### [address] [address] Lease Examiner: Jersey Dahl MD #### CDP, CP #### [address] [place] [address] Lease Examiner: Kayley Doll MD PH,Ur 6.0 Normal 5.0-9.0 [facility] Comment on above: Performed By: #### L IPR #### [address] [address] Lease Examiner: Jersey Dahl MD #### CDP, CP #### [address] [place], [facility] Lease Examiner: Kayley Doll MD Protein Ql (U) TRACE Abnormal NEG [facility] Comment on above: Performed By: #### L IPR #### [address] [address] Lease Examiner: Jersey Dahl MD #### CDP, CP #### [address] [place], [place] [address] Lease Examiner: Kayley Doll MD Spec. [place],Ur >1.030 High 1.010-1.020 [facility] Comment on above: Performed By: #### L IPR #### [address] [address] Lease Examiner: Jersey Dahl MD #### CDP, CP #### [address] [place] [address] Lease Examiner: Kayley Doll MD Urobilinogen,Ur Normal Normal NORM [facility] Comment on above: Performed By: #### L IPR #### [facility] [address] [place], [place] [phone] Lease Examiner: Jersey Dahl MD #### MARLIN, CP #### [address] [place] [address] Lease Examiner: Kayley Doll MD Urinalysis with Reflex to Cu ltureon 10-08-2022 Bilirubin Urine Negative NEGATIVE [facility] Color, UA Yellow Yellow [facility] Glucose Auto test strip (U) [Mass/Vol] Negative NEGATIVE [facility] Interpretation and review of laboratory results Abnormal [facility] Ketones (U) [Mass/Vol] 2+ Abnormal NEGATIVE [facility] Leukocyte esterase Auto test strip Ql (U) MODERATE Abnormal NEGATIVE [facility] Nitrite Auto test strip Ql (U) Positive Abnormal NEGATIVE [facility] Protein (U) [Mass/Vol] 6.0 mg/dL 5.0 - 9.0 [facility] Protein (U) [Mass/Vol] TRACE Abnormal NEGATIVE [facility] Specific [place], UA High 1.010 - 1.020 [facility] Turbidity UA Clear Clear [facility] Urine Hgb 1+ Abnormal NEGATIVE [facility] Urobilinogen, Urine Normal Normal [facility] Urinalysis,Microon 3 Bacteria 3+ Abnormal NONE [facility] Comment on above: Performed By: #### L IPR #### [facility] [address] [place] [address] Lease Examiner: Jersey Dahl MD #### MARLIN, CP #### [facility] [address] [place] [address] [place] [address] Lease Examiner: Kayley Doll MD Epithelial cells LM Ql (Urine sed) 0 TO 2 Normal 0-25 [facility] Comment on above: Performed By: #### L IPR #### [address] [address] Lease Examiner: Jersey Dahl MD #### CDP, CP #### [facility] [address] [place], [place] [phone] Lease Examiner: Kayley Doll MD Urine RBC's 0 TO 2 Normal 0-2 [facility] Comment on above: Performed By: #### L IPR #### [address] [address] Lease Examiner: Jersey Dahl MD #### CDP, CP #### [address] [place], [place] 6783583 Lease Examiner: Kayley Doll MD Urine WBC's GREATER THAN 100 Normal 0-5 [facility] Comment on above: Performed By: #### L IPR #### [address] [address] Lease Examiner: Jersey Dahl MD #### CDP, CP #### [address] [place], [place] [phone] Lease Examiner: Kayley Doll MD Urinalysis, Routineon 2022 Bilirubin, SemiQt,Ur Negative Normal NEG [facility] Comment on above: Performed By: #### L IPR #### [address] [address] Lease Examiner: Jersey Dahl MD #### CDP, CP #### [address] [place], [place] 1062383 Lease Examiner: Kayley Doll MD Blood, Urine Negative Normal NEG [facility] Comment on above: Performed By: #### L IPR #### [address] [address] Lease Examiner: Jersey Dahl MD #### CDP, CP #### [address] [place], [place] 1470783 Lease Examiner: Kayley Doll MD Clarity (U) Turbid Abnormal CLEAR [facility] Comment on above: Performed By: #### L IPR #### [address] [address] Lease Examiner: Jersey Dahl MD #### CDP, CP #### [address] [place], [place] [phone] Lease Examiner: Kayley Doll MD Color (U) Yellow Normal YEL [facility] Comment on above: Performed By: #### L IPR #### [address] [address] Lease Examiner: Jersey Dahl MD #### CDP, CP #### [address] [place], [place] 1097483 Lease Examiner: Kayley Doll MD Glucose Ql (U) Negative Normal NEG [facility] in Hospital Comment on above: Performed By: #### L IPR #### [address] [address] Lease Examiner: Jersey Dahl MD #### CDP, CP #### [address] [place], [place] [phone] Lease Examiner: Kayley Doll MD Ketones Ql (U) 1+ Abnormal NEG [facility] in Hospital Comment on above: Performed By: #### L IPR #### [address] [address] Lease Examiner: Jersey Dahl MD #### CDP, CP #### [address] [place], [place] 3961983 Lease Examiner: Kayley Doll MD Leukocyte esterase Test strip Ql (U) Negative Normal NEG [facility] Comment on above: Performed By: #### L IPR #### [address] [address] Lease Examiner: Jersey Dahl MD #### CDP, CP #### [facility] [address] [place] [address] Dr[address] [place], [place] [phone] Lease Examiner: Kayley Doll MD Nitrite,Ur Positive Abnormal NEG [facility] Comment on above: Performed By: #### L IPR #### [address] [address] Lease Examiner: Jersey Dahl MD #### CDP, CP #### [address] [place] [phone] Lease Examiner: Kayley Doll MD PH,Ur 6.0 Normal 5.0-9.0 [facility] Comment on above: Performed By: #### L IPR #### [address] [address] Lease Examiner: Jersey Dahl MD #### CDP, CP #### [address] [place] [address] Lease Examiner: Kayley Doll MD Protein Ql (U) Negative Normal NEG [facility] Comment on above: Performed By: #### L IPR #### [address] [address] Lease Examiner: Jersey Dahl MD #### CDP, CP #### [address] [place] [address] Lease Examiner: Kayley Doll MD Spec. [place],Ur >1.030 High 1.010-1.020 [facility] Comment on above: Performed By: #### L IPR #### [address] [address] Lease Examiner: Jersey Dahl MD #### CDP, CP #### [facility] [address] [place] [address] Dr[address] [place], [place] [phone] Lease Examiner: Kayley Doll MD Urobilinogen,Ur Normal Normal NORM [facility] Comment on above: Performed By: #### L IPR #### [address] [address] Lease Examiner: Jersey Dahl MD #### CDP, CP #### [facility] [address] [place] [address] Dr. [place], [place] [id number] Lease Examiner: Kayley Doll MD Urinalysis,Microon 3 Amorphous sediment LM Ql (Urine sed) 3+ Abnormal NONE [facility] Comment on above: Performed By: #### L IPR #### [address] [address] Lease Examiner: Jersey Dahl MD #### CDP, CP #### [address] [place], [facility]83 Lease Examiner: Kayley Doll MD Bacteria 2+ Abnormal NONE [facility] Comment on above: Performed By: #### L IPR #### [address] [address] Lease Examiner: Jersey Dahl MD #### CDP, CP #### [address] [place], [facility]83 Lease Examiner: Kayley Doll MD Epithelial cells LM Ql (Urine sed) None Normal 0-25 [facility] Comment on above: Performed By: #### L IPR #### [address] [address] Lease Examiner: Jersey Dahl MD #### CDP, CP #### [address] [place], [place] [phone] Lease Examiner: Kayley Doll MD Urine RBC's None Normal 0-2 [facility] Comment on above: Performed By: #### L IPR #### [facility] [address] [place], [place] [id number] Lease Examiner: Jersey Dahl MD #### CDP, CP #### [facility] [address] [place], [place] [phone] Lease Examiner: Kayley Doll MD Urine WBC's 0 TO 2 Normal 0-5 [facility] Comment on above: Performed By: #### L IPR #### [facility] [address] [place] [address] Lease Examiner: Jersey Dahl MD #### CDP, CP #### [facility] [address] [place], [place] [phone] Lease Examiner: Kayley Doll MD Lipid Panelon 10-05-2022 Cholesterol [Mass/Vol] 199 mg/dL NINF - 200 mg/dL [facility] Comment on above: Cholesterol Guidelines: <200 Desirable 200-240 Borderline >240 Undesirable Cholesterol in HDL [Mass/Vol] 107 mg/dL 40 - PINF mg/dL [facility] Comment on above: HDL Guidelines: <40 Undesirable 40-59 Borderline >59 Desirable Cholesterol in LDL [Mass/Vol] 73 mg/dL 0 - 130 mg/dL [facility] Comment on above: LDL Guidelines: <100 Desirable 100-129 Near to/above Desirable 130-159 Borderline >159 Undesirable Direct (measured) LDL and calculated LDL are not interchangeable tests. Cholesterol.total/Veronica sterol in HDL [Mass ratio] 1.9 {ratio} NINF - 5 [facility] Triglyceride [Mass/Vol] 93 mg/dL NINF - 150 mg/dL [facility] Comment on above: Triglyceride Guidelines: <150 Desirable 150-199 Borderline 200-499 High >499 Very high Based on AHA Guidelines for fasting triglyceride, March 2012. [facility] Lipid Profileon 10-05-2022 Cholesterol [Mass/Vol] 199 mg/dL Normal <200 [facility] Comment on above: Result Comment: Cholesterol Guidelines: <200 Desirable 200-240 Borderline >240 Undesirable Performed By: #### L IPR #### [address] [address] Lease Examiner: Jersey Dahl MD #### CDP, CP #### [address] [place], [place] 7982383 Lease Examiner: Kayley Doll MD Cholesterol in HDL [Mass/Vol] 107 mg/dL Normal >40 [facility] Comment on above: Result Comment: HDL Guidelines: <40 Undesirable 40-59 Borderline >59 Desirable Performed By: #### L IPR #### [address] [address] Lease Examiner: Jersey Dahl MD #### CDP, CP #### [address] [place], [place] 2108783 Lease Examiner: Kayley Doll MD Cholesterol in LDL [Mass/Vol] 73 mg/dL Normal 0-130 [facility] Comment on above: Result Comment: LDL Guidelines: <100 Desirable 100-129 Near to/above Desirable 130-159 Borderline >159 Undesirable Direct (measured) LDL and calculated LDL are not interchangeable tests. Performed By: #### L IPR #### [address] [address] Lease Examiner: Jersey Dahl MD #### CDP, CP #### [address] [place] [phone] Lease Examiner: Kayley Doll MD Cholesterol.total/Veronica sterol in HDL [Mass ratio] 1.9 {ratio} Normal <5 [facility] Comment on above: Performed By: #### L IPR #### [address] [address] Lease Examiner: Jersey Dahl MD #### CDP, CP #### [address] [place], [place] [id number] Lease Examiner: Kayley Doll MD Triglyceride [Mass/Vol] 93 mg/dL Normal <150 [facility] Comment on above: Result Comment: Triglyceride Guidelines: <150 Desirable 150-199 Borderline 200-499 High >499 Very high Based on AHA Guidelines for fasting triglyceride, March 2012. Performed By: #### L IPR #### [facility] [address] [place] [address] Lease Examiner: Jersey Dahl MD #### CDP, CP #### [facility] [address] [address] Lease Examiner: Kayley Doll MD CBC with Auto Differentialon 10-04-2022 Absolute Eos # 0.14 EXCEL [facility] Absolute Immature Granulocyte [facility] Absolute Lymph # 0.95 Low [facility] Absolute [place] # 0.50 [facility] Basophils (Bld) [#/Vol] 0.03 10*3/uL [facility] Basophils/100 WBC (Bld) 1 % 0 - 2 % [facility] Eosinophils/100 WBC (Bld) 2 % 1 - 4 % [facility] Hematocrit (Bld) [Volume fraction] 32.9 % Low 36.3 - 47.1 % [facility] Hemoglobin (Bld) [Mass/Vol] 10.5 g/dL Low 11.9 - 15.1 g/dL [facility] Immature granulocytes/100 WBC (Bld) 0 % 0 [facility] Interpretation and review of laboratory results Abnormal [facility] Lymphocytes/100 WBC (Bld) 15 % Low 24 - 43 % [facility] MCH (RBC) [Entitic mass] 31.3 pg 25.2 - 33.5 pg [facility] MCHC (RBC) [Mass/Vol] 31.9 g/dL 28.4 - 34.8 g/dL [facility] MCV (RBC) [Entitic vol] 97.9 fL 82.6 - 102.9 fL [facility] Monocytes/100 WBC (Bld) 8 % 3 - 12 % [facility] NRBC Automated 0.0 0.0 per 100 WBC [facility] Platelet distribution width (Bld) [Ratio] 15.6 % High 11.8 - 14.4 % [facility] Platelet mean volume (Bld) [Entitic vol] 9.7 fL 8.1 - 13.5 fL [facility] Platelets (Bld) [#/Vol] 148 10*3/uL [facility] RBC (Bld) [#/Vol] 3.36 10*6/uL Low 3.95 - 5.1 1 m/uL [facility] Segmented neutrophils/100 WBC (Bld) 74 % High 36 - 65 % [facility] Segs Absolute 4.83 [facility] WBC (Bld) [#/Vol] 6.5 10*3/uL [facility] CBC with Diffon 10-04-2022 Abs. Basophil 0.03 k/uL Normal 0.00-0.20 [facility] Comment on above: Performed By: #### L IPR #### [address] [address] Lease Examiner: Jersey Dahl MD #### CDP, CP #### [address] [place] [address] Lease Examiner: Kayley Doll MD Abs.Imm.Granulocyte <0.03 Normal 0.00-0.30 [facility] Comment on above: Performed By: #### L IPR #### [address] [place] [address] Lease Examiner: Jersey Dahl MD #### CDP, CP #### [facility] [address] [place] [address] [place] [address] Lease Examiner: Kayley Doll MD Abs.Neutrophil (Seg) 4.83 k/uL Normal 1.50-8.10 [facility] Comment on above: Performed By: #### L IPR #### [address] [address] Lease Examiner: Jersey Dahl MD #### CDP, CP #### [address] [place] [phone] Lease Examiner: Kayley Doll MD Basophils/100 WBC (Bld) 1 % Normal 0-2 [facility] Comment on above: Performed By: #### L IPR #### [address] [address] Lease Examiner: Jersey Dahl MD #### CDP, CP #### [address] [place] [phone] ( Lease Examiner: Kayley Doll MD Eosinophils (Bld) [#/Vol] 0.14 10*3/uL Normal 0.00-0.44 [facility] Comment on above: Performed By: #### L IPR #### [address] [address] Lease Examiner: Jersey Dahl MD #### CDP, CP #### [address] [place] [address] Lease Examiner: Kayley Doll MD Eosinophils/100 WBC (Bld) 2 % Normal 1-4 [facility] Comment on above: Performed By: #### L IPR #### [address] [address] Lease Examiner: Jersey Dahl MD #### CDP, CP #### [address] [place] [phone] ( Lease Examiner: Kayley Doll MD Erythrocyte distribution width (RBC) [Ratio] 15.6 % High 11.8-14.4 [facility] Comment on above: Performed By: #### L IPR #### [address] [address] Lease Examiner: Jersey Dahl MD #### CDP, CP #### [address] [place], [place] 6175583 Lease Examiner: Kayley Doll MD Hematocrit (Bld) [Volume fraction] 32.9 % Low 36.3-47.1 [facility] Comment on above: Performed By: #### L IPR #### [address] [address] Lease Examiner: Jersey Dahl MD #### CDP, CP #### [address] [place] [phone] Lease Examiner: Kayley Doll MD Hemoglobin (Bld) [Mass/Vol] 10.5 g/dL Low 11.9-15.1 [facility] Comment on above: Performed By: #### L IPR #### [address] [address] Lease Examiner: Jersey Dahl MD #### CDP, CP #### [address] [place] [phone] Lease Examiner: Kayley Doll MD Immature granulocytes/100 WBC (Bld) 0 % Normal 0 [facility] Comment on above: Performed By: #### L IPR #### [address] [address] Lease Examiner: Jersey Dahl MD #### CDP, CP #### [address] [place] [phone] Lease Examiner: Kayley Doll MD Lymphocytes (Bld) [#/Vol] 0.95 10*3/uL Low 1.10-3.70 [facility] Comment on above: Performed By: #### L IPR #### [address] [address] Lease Examiner: Jersey Dahl MD #### CDP, CP #### [address] [place], [place] 3265683 Lease Examiner: Kayley Doll MD Lymphocytes/100 WBC (Bld) 15 % Low 24-43 [facility] Comment on above: Performed By: #### L IPR #### [address] [address] Lease Examiner: Jersey Dahl MD #### CDP, CP #### [address] [place], [place] 3304183 Lease Examiner: Kayley Doll MD MCH (RBC) [Entitic mass] 31.3 pg Normal 25.2-33.5 [facility] Comment on above: Performed By: #### L IPR #### [address] [address] Lease Examiner: Jersey Dahl MD #### CDP, CP #### [address] [place] [phone] Lease Examiner: Kayley Doll MD MCHC (RBC) [Mass/Vol] 31.9 g/dL Normal 28.4-34.8 [facility] Comment on above: Performed By: #### L IPR #### [address] [address] Lease Examiner: Jersey Dahl MD #### CDP, CP #### [address] [place] [phone] Lease Examiner: Kayley Doll MD MCV (RBC) [Entitic vol] 97.9 fL Normal 82.6-102.9 [facility] Comment on above: Performed By: #### L IPR #### [address] [address] Lease Examiner: Jersey Dahl MD #### CDP, CP #### [address] [place] [phone] Lease Examiner: Kayley Doll MD Monocytes (Bld) [#/Vol] 0.50 10*3/uL Normal 0.10-1.20 [facility] Comment on above: Performed By: #### L IPR #### [address] [address] Lease Examiner: Jersey Dahl MD #### CDP, CP #### [facility] [address] [place] [address] Dr. [place] [phone] Lease Examiner: Kayley Doll MD Monocytes/100 WBC (Bld) 8 % Normal 3-12 [facility] Comment on above: Performed By: #### L IPR #### [address] [address] Lease Examiner: Jersey Dahl MD #### CDP, CP #### [address] [place] [phone] Lease Examiner: Kayley Doll MD Neutrophil (Seg) 74 % High 36-65 [facility] Comment on above: Performed By: #### L IPR #### [address] [address] Lease Examiner: Jersey Dahl MD #### CDP, CP #### [address] [place] [phone] Lease Examiner: Kayley Doll MD NRBC Automated 0.0 per 100 WBC Normal 0.0 [facility] Comment on above: Performed By: #### L IPR #### [address] [address] Lease Examiner: Jersey Dahl MD #### CDP, CP #### [facility] [address] [place] [address] Dr. [place] [phone] Lease Examiner: Kayley Doll MD Platelet mean volume (Bld) [Entitic vol] 9.7 fL Normal 8.1-13.5 [facility] Comment on above: Performed By: #### L IPR #### [facility] [address] [place] [address] Lease Examiner: Jersey Dahl MD #### CDP, CP #### [facility] [address] [place], [place] 9111683 Lease Examiner: Kayley Doll MD Platelets (Bld) [#/Vol] 148 10*3/uL Normal 138-453 [facility] Comment on above: Performed By: #### L IPR #### [facility] [address] [place] [address] Lease Examiner: Jersey Dahl MD #### CDP, CP #### [facility] [address] [place] [address] Dr. [place], [place] 6407583 Lease Examiner: Kayley Doll MD RBC (Bld) [#/Vol] 3.36 10*6/uL Low 3.95-5.11 [facility] Comment on above: Performed By: #### L IPR #### [facility] [address] [place] [address] Lease Examiner: Jersey Dahl MD #### CDP, CP #### [facility] [address] [place], [place] [phone] Lease Examiner: Kayley Doll MD WBC (Bld) [#/Vol] 6.5 10*3/uL Normal 3.5-11.3 [facility] Comment on above: Performed By: #### L IPR #### [facility] [address] [place] [address] Lease Examiner: Jersey Dalh MD #### CDP, CP #### [facility] [address] [place], [place] 8781283 Lease Examiner: Kayley Doll MD Comp Metabolic Profon 2022 Albumin [Mass/Vol] 3.9 g/dL Normal 3.5-5.2 [facility] Comment on above: Performed By: #### L IPR #### [address] [address] Lease Examiner: Jersey Dahl MD #### CDP, CP #### [facility] [address] [place], [place] 8481283 Lease Examiner: Kayley Doll MD Albumin/Glob Ratio 1.1 Normal 1.0-2.5 [facility] Comment on above: Performed By: #### L IPR #### [address] [address] Lease Examiner: Jersey Dahl MD #### CDP, CP #### [address] [place], [place] 3989883 Lease Examiner: Kayley Doll MD Alkaline Phos 99 U/L Normal 35-104 [facility] Comment on above: Performed By: #### L IPR #### [address] [address] Lease Examiner: Jersey Dahl MD #### CDP, CP #### [address] [place], [place] 1925283 Lease Examiner: Kayley Doll MD ALT [Catalytic activity/Vol] 27 U/L Normal 5-33 [facility] Comment on above: Performed By: #### L IPR #### [address] [address] Lease Examiner: Jersey Dahl MD #### CDP, CP #### [facility] [address] [place], [place] 9452583 Lease Examiner: Kayley Doll MD Anion gap [Moles/Vol] 10 mmol/L Normal 9-17 [facility] Comment on above: Performed By: #### L IPR #### [address] [address] Lease Examiner: Jersey Dahl MD #### CDP, CP #### [facility] [address] [place] [phone] Lease Examiner: Kayley Doll MD AST [Catalytic activity/Vol] 21 U/L Normal <32 [facility] Comment on above: Performed By: #### L IPR #### [address] [address] Lease Examiner: Jersey Dahl MD #### CDP, CP #### [facility] [address] [place], [place] 9197483 Lease Examiner: Kayley Doll MD Bilirubin [Mass/Vol] 1.0 mg/dL Normal 0.3-1.2 [facility] Comment on above: Performed By: #### L IPR #### [address] [address] Lease Examiner: Jersey Dahl MD #### CDP, CP #### [address] [place], [place] 8047283 Lease Examiner: Kayley Doll MD BUN/CRE Ratio 40 High 9-20 [facility] Comment on above: Performed By: #### L IPR #### [address] [address] Lease Examiner: Jersey Dahl MD #### CDP, CP #### [facility] [address] [place] [address] Dr. [place] 1277383 Lease Examiner: Kayley Doll MD Calcium [Mass/Vol] 10.9 mg/dL High 8.6-10.4 [facility] Comment on above: Performed By: #### L IPR #### [address] [address] Lease Examiner: Jersey Dahl MD #### CDP, CP #### [address] [place], [place] 7582083 Lease Examiner: Kayley Doll MD Chloride [Moles/Vol] 110 mmol/L High 98-107 [facility] Comment on above: Performed By: #### L IPR #### [facility] [address] [place] [address] Lease Examiner: Jersey Dahl MD #### CDP, CP #### [facility] [address] [place] [address] [place], [place] 6907283 Lease Examiner: Kayley Doll MD CO2 [Moles/Vol] 30 mmol/L Normal 20-31 [facility] Comment on above: Performed By: #### L IPR #### [address] [address] Lease Examiner: Jersey Dahl MD #### CDP, CP #### [address] [place], [place] 8201083 Lease Examiner: Kayley Doll MD Creatinine [Mass/Vol] 0.99 mg/dL High 0.50-0.90 [facility] Comment on above: Performed By: #### L IPR #### [address] [address] Lease Examiner: Jersey Dahl MD #### CDP, CP #### [address] [place] [phone] Lease Examiner: Kayley Doll MD GFR/1.73 sq M.predicted among non-blacks MDRD (S/P/Bld) [Vol rate/Area] mL/min/{1.73_m2} Normal >60 [facility] Comment on above: Result Comment: These results [...] secretion. Performed By: #### L IPR #### [address] [address] Lease Examiner: Jersey Dahl MD #### CDP, CP #### [address] [place], [place] 1392283 Lease Examiner: Kayley Doll MD Glucose [Mass/Vol] 80 mg/dL Normal 70-99 [facility] Comment on above: Performed By: #### L IPR #### [address] [address] Lease Examiner: Jersey Dahl MD #### CDP, CP #### [address] [place], [place] 9326683 Lease Examiner: Kayley Doll MD Potassium [Moles/Vol] 3.5 mmol/L Low 3.7-5.3 [facility] Comment on above: Performed By: #### L IPR #### [address] [address] Lease Examiner: Jersey Dahl MD #### CDP, CP #### [address] [place], [place] 0920083 Lease Examiner: Kayley Doll MD Protein [Mass/Vol] 7.4 g/dL Normal 6.4-8.3 [facility] Comment on above: Performed By: #### L IPR #### [address] [address] Lease Examiner: Jersey Dahl MD #### CDP, CP #### [address] [place], [place] 8184983 Lease Examiner: Kayley Doll MD Sodium [Moles/Vol] 150 mmol/L High 135-144 [facility] Comment on above: Performed By: #### L IPR #### [address], [place] 4642208 Lease Examiner: Jersey Dahl MD #### CDP, CP #### [facility] [address] [place] [address] Lease Examiner: Kayley Doll MD Urea nitrogen [Mass/Vol] 40 mg/dL High 8-23 [facility] Comment on above: Performed By: #### L IPR #### [facility] [address] [place], [place] 8097108 Lease Examiner: Jersey Dahl MD #### CDP, CP #### [facility] [address] [place] [address] Lease Examiner: Kayley Doll MD Comprehensive Metabolic Pane [facility] 10-04-2022 Albumin [Mass/Vol] 3.9 g/dL 3.5 - 5.2 g/dL [facility] Albumin/Globulin [Mass ratio] 1.1 {ratio} 1.0 - 2.5 [facility] ALP [Catalytic activity/Vol] 99 U/L 35 - 104 U/L [facility] ALT [Catalytic activity/Vol] 27 U/L 5 - 33 U/L [facility] Anion gap [Moles/Vol] 10 mmol/L 9 - 17 mmol/L [facility] AST [Catalytic activity/Vol] 21 U/L NINF - 32 U/L [facility] Bilirubin [Mass/Vol] 1.0 mg/dL 0.3 - 1 .2 mg/dL [facility] Calcium [Mass/Vol] 10.9 mg/dL High 8.6 - 10. 4 mg/dL [facility] Chloride [Moles/Vol] 110 mmol/L High 98 - 10 7 mmol/L [facility] CO2 [Moles/Vol] 30 mmol/L 20 - 31 mmol/L [facility] Creatinine [Mass/Vol] 0.99 mg/dL High 0.50 - 0.90 mg/dL [facility] GFR/1.73 sq M.predicted MDRD (S/P/Bld) [Vol rate/Area] - PINF [facility] Comment on above: These results are [...] [Mass/Vol] 80 mg/dL 70 - 99 mg/dL [facility] Interpretation and review of laboratory results Abnormal [facility] Potassium [Moles/Vol] 3.5 mmol/L Low 3.7 - 5.3 mmol/L [facility] Protein [Mass/Vol] 7.4 g/dL 6.4 - 8.3 g/dL [facility] Sodium [Moles/Vol] 150 mmol/L High 135 - 144 mmol/L [facility] Urea nitrogen [Mass/Vol] 40 mg/dL High 8 - 23 mg/dL [facility] Urea nitrogen/Creatinine (Bld) [Mass ratio] 40 High 9 - 20 [facility] Thyroxine T4on 10-04-2022 T4 [Mass/Vol] 10.7 ug/dL Normal 4.5-10.9 [facility] Comment on above: Performed By: #### L IPR #### [address] [place], [place] [phone] Lease Examiner: Jersey Dahl MD #### CDP, CP #### [facility] [address] [place] [address] [place] [address] Lease Examiner: Kayley Doll MD Triiodothyronine T3on 2022 Triiodothyronine T3 63 ng/dL Normal 60-181 [facility] Comment on above: Performed By: #### L IPR #### [address] [place], [place] 9074508 Lease Examiner: Jersey Dahl MD #### CDP, CP #### [facility] [address] [place], [place] 1252483 Lease Examiner: Kayley Doll MD T3, Freeon 10-03-2022 Free T3 [Mass/Vol] 1.96 pg/mL Low 2.02-4.43 [facility] Comment on above: Performed By: #### L IPR #### [address] [id number] Lease Examiner: Jersey Dahl MD #### CDP, CP #### [address] [place] [address] Lease Examiner: Kayley Doll MD TSHon 10-03-2022 TSH Qn 0.39 m[IU]/L [facility] Thyroid Stim. Horm.on 2022 Thyroid Stim. Horm. 0.39 uIU/mL Normal 0.30-5.00 [facility] Comment on above: Performed By: #### T 4, FT4, T3, FT3 #### [address] [address] Lease Examiner: Jersey Dahl MD #### TSH #### [address] [place] [phone] Lease Examiner: Kayley Doll MD Thyroxine, Freeon 10-03-2022 Thyroxine, Free 1.5 ng/dL Normal 0.9-1.7 [facility] Comment on above: Performed By: #### L IPR #### [address] [address] Lease Examiner: Jersey Dahl MD #### CDP, CP #### [address] [place] [address] Lease Examiner: Kayley Doll MD ACETAMINOPHENon 09-28-2022 Acetaminophen [Mass/Vol] ug/mL Critically low 10.0-30.0 [facility] Comment on above: Performed By: #### S ALYC, ACET, ETH ####[facility] [id number] [place] [address]Dr. Soniya Chi BNPon 09-28-2022 Natriuretic peptide B (Bld) [Mass/Vol] 70.0 pg/mL Normal <=900.[address] [facility] Comment on above: Performed By: #### T SH, CMP, BNP, CMADM ####[facility] [id number] [place] [address]Dr. Soniya Chi CARDIAC HAYDER ADMITon 023 CK [Catalytic activity/Vol] 19 U/L Critically low 26-[address] [facility] Comment on above: Performed By: #### T SH, CMP, BNP, CMADM ####[facility] [id number] [place] [address]Dr. Soniya Chi CK.MB [Mass/Vol] 1.97 ng/mL Normal <=3.60 [facility] Comment on above: Performed By: #### T SH, CMP, BNP, CMADM ####[facility] [id number] [place] [address]Dr[address] Soniya Chi HSTROP 16.3 pg/mL Normal 4.0-51.[address] [facility] Comment on above: Result Comment: CUT- OFF POINTS HAVE BEEN ESTABLISHED BASED ON THE FOURTH UNIVERSAL DEFINITIONS OF MYOCARDIALINFARCTION. THE UPPER REFERENCE LIMIT (URL) OF TROPONIN, DEFINED THE 99TH PERCENTILE OFcTnI DISTRIBUTION IN A REFERENCE POPULATION, HAS BEEN CONFIRMED THE DECISION THRESHOLDFOR [place] DIAGNOSIS. Performed By: #### T SH, CMP, BNP, CMADM ####[facility] Pysfexpyuh0229 [place] [address]Dr. Soniya Chi PALMIRA 68 ng/mL Normal 9-[address] [facility] Comment on above: Performed By: #### T SH, CMP, BNP, CMADM ####[facility] Gbrwnhhlcv43[address] [place] [address]Dr. Soniya Chi CBC AUTO DIFFon 09-28-2022 BASO # 0.0 103/ul Normal 0.0-0.[address] [facility] Comment on above: Performed By: #### C BC ####[facility] Rvytvxrglx8046 [place] [phone]. Soniya Chi Basophils/100 WBC (Bld) 0.2 % Normal 0.2-2.0 [facility] Comment on above: Performed By: #### C BC ####[facility] Dgdsvuqgcv7198 [place] [address]Dr. Soniya Chi EO # 0.0 103/ul Normal 0.0-0.[address] [facility] Comment on above: Performed By: #### C BC ####[facility] Bmoompubmr[address] [place], [place] [address]Dr. Soniya Chi Eosinophils/100 WBC (Bld) 0.3 % Critically low 0.9-7.0 [facility] Comment on above: Performed By: #### C BC ####[facility] Robnhexamg[address] [place], [place] [address]Dr. Soniya Chi Erythrocyte distribution width (RBC) [Ratio] 15.8 % Critically high 11.0-15.0 [facility] Comment on above: Performed By: #### C BC ####[facility] Kyxgpyvylw[address] [place], [place] [address]Dr. Soniya Chi Hematocrit (Bld) [Volume fraction] 30.1 % Critically low 36.0-48.0 [facility] Comment on above: Performed By: #### C BC ####[facility] Folfnanyip[address] [place], [place] [address]Dr. Soniya Chi Hemoglobin (Bld) [Mass/Vol] 9.9 g/dL Critically low 12.0-16.0 [facility] Comment on above: Performed By: #### C BC ####[facility] Pxomttxhjv6447 [place] [address]Dr. Soniya Chi IG # 0.02 10e3/ul Normal 0.00-0.[address] [facility] Comment on above: Performed By: #### C BC ####[facility] Uqmfluuoes[address] [place], [place] [address]Dr. Soniya Chi IG % 0.2 % Normal 0.0-0.[address] [facility] Comment on above: Performed By: #### C BC ####[facility] Shdbxduasm2225 [place] [address]Dr. Gypsyjuan Alon LYMPH # 0.5 103/ul Critically low 1.2-3.8 [facility] Comment on above: Performed By: #### C BC ####[facility] Bepxyxaomr6966 [place] [address]Dr. Gypsyjuan Chi Lymphocytes/100 WBC (Bld) 5.2 % Critically low 20.5-60.0 [facility] Comment on above: Performed By: #### C BC ####[facility] Vllcyaebrz8426 [place] [address]Dr. Soniya Chi MANUAL DIFF REQ NO Normal [facility] Comment on above: Performed By: #### C BC ####[facility] Wcxbjhzkuw3994 [place] [address]Dr. Soniya Chi MCH (RBC) [Entitic mass] 31.2 pg Normal 26.7-34.0 [facility] Comment on above: Performed By: #### C BC ####[facility] Nngnpceaxr2975 [place] [address]Dr. Soniya Alon MCHC (RBC) [Mass/Vol] 32.9 g/dL Normal 29.9-35.2 [facility] Comment on above: Performed By: #### C BC ####[facility] Ellqljhjqb2356 [place] [address]Dr. Soniya Chi MCV (RBC) [Entitic vol] 95.0 fL Normal 81.0-99.0 [facility] Comment on above: Performed By: #### C BC ####[facility] Qweqkdoprf3801 [place] [address]Dr. Soniya Chi MONO # 0.5 103/ul Normal 0.3-0.8 [facility] Comment on above: Performed By: #### C BC ####[facility] Bddwdxlljc1276 [place] [address]Dr. Soniya Chi Monocytes/100 WBC (Bld) 4.6 % Normal 1.7-12.0 [facility] Comment on above: Performed By: #### C BC ####[facility] Eigwfmqgts3867 [place] [address]Dr. Soniya Chi NEUT # 8.9 103/ul Critically high 1.4-6.5 [facility] Comment on above: Performed By: #### C BC ####[facility] Uccwqntqqe5229 [place] [address]Dr. Soniya Chi Neutrophils/100 WBC (Bld) 89.5 % Critically high 43.0-75.0 [facility] Comment on above: Performed By: #### C BC ####[facility] Ikvybxtcch0014 [place] [address]Dr. Soniya Chi Platelet mean volume (Bld) [Entitic vol] 9.9 fL Normal 9.5-13.5 [facility] Comment on above: Performed By: #### C BC ####[facility] Vwpotozmht5760 [place] [address]Dr. Soniya Chi PLT 163 103/ul Normal 150-[address] [facility] Comment on above: Performed By: #### C BC ####[facility] Qocgmhqegv6543 [place] [address]Dr. Soniya Chi RBC 3.17 106/ul Critically low 4.20-5.40 [facility] Comment on above: Performed By: #### C BC ####[facility] Zruspjkchg0267 [place] [address]Dr. Soniya Chi WBC 9.9 103/ul Normal 4.0-11.[address] [facility] Comment on above: Performed By: #### C BC ####[facility] Kysmomfbnu4561 [place] [phone]. Soniya Chi CT HEAD WO CONon 09-28-2022 CT HEAD WO CON Normal [facility] CULTURE BLOODon 09-28-2022 Microscopic examination of blood, culture Culture Observations: NO GROWTH AT [address] [facility] Comment on above: Performed By: #### B LDCX2 ####[facility] Jyhnvbxbyq[address] [place], [place] [id number]. Soniya Chi Microscopic examination of blood, culture Culture Observations: NO GROWTH AT [address] [facility] Comment on above: Performed By: #### B LDCX1 ####[facility] Oauuoehkcc9208 [place] [phone]. Gypsyjuan Alon Covid-19 PCR ([facility])on 09-01 SARS-CoV-2 (COVID-19) RNA DORIAN+probe Ql (Unsp spec) Not detected Normal NOT DETECTED [facility] Comment on above: Result Comment: This test is not yet approved or cleared by the [place] FDA. When there are no FDA-approved or cleared tests available, and other criteria are met, FDA can make tests available under an emergency access mechanism called an Emergency Use Authorization (EUA). The EUA for this test is supported by the [place] of Health and Human Service's (HHS's) declaration [...] with SARS-CoV-2. Performed By: #### C VDTBH ####[facility] Cpatbnlabe2277 [place] [phone]. Soniya Chi DRUG SCREEN RAPID (URINE)on 09-28-2022 AMP Negative Normal NEGATIVE [facility] Comment on above: Performed By: #### D RUGRPD ####[facility] Oucihsjbmd6427 [place], [place] [address]Gf. Soniya Chi BAR Negative Normal NEGATIVE [facility] Comment on above: Performed By: #### D RUGRPD ####[facility] Hiplugjuyg1039 [place], [place] [address]Zu. Soniya Chi BUP Negative Normal NEGATIVE [facility] Comment on above: Performed By: #### D RUGRPD ####[facility] Aisrlfxhsm8[address] [place], [place] [address]Dr. Soniya Chi BZO Negative Normal NEGATIVE [facility] Comment on above: Performed By: #### D RUGRPD ####[facility] Xqgcjfzqxg[address] [place], [place] [address]Dr. Soniya Chi MARIAH Negative Normal NEGATIVE [facility] Comment on above: Performed By: #### D RUGRPD ####[facility] Zvcrmjvfmx593[address] [place], [place] [address]Dr. Soniya Chi CUT-OFFS SEE BELOW Normal [facility] Comment on above: Result Comment: AMP (Amphetamine): 500ng/mL, BAR (Barbituates): 200 ng/mL, BZO (Benzodiazepines): 150 ng/mL, BUP (Buprenorphine): 10 ng/mL, MARIAH (Cocaine): 150 ng/mL, mAMP (Methamphetamine): 500 ng/mL, MTD (Methadone): 200 ng/mL, OPI (Opiates): 100 ng/mL, OXY (Oxycodone): 100 ng/mL, PCP (Phencyclidine): 25 ng/mL, PPX (Propoxyphene): 300 ng/mL, THC (Cannabinoids): 50 ng/mL, TCA (Trycyclic Antidepressants): 300 ng/mL Performed By: #### D RUGRPD ####[facility] Elvspsmhny[address] [place], [place] [address]Dr. Soniya Chi DRUG CUT HEADER DRUG CLASS TEST SYSTEM CUT-OFF CONCENTRATIONS ARE FOLLOWS: Normal [facility] Comment on above: Performed By: #### D RUGRPD ####[facility] Bkloctaujx[address] [place], [place] [address]Dr. Soniya Chi mAMP Negative Normal NEGATIVE [facility] Comment on above: Performed By: #### D RUGRPD ####[facility] Wplnejzoux[address] [place], [place] [address]Dr. Soniya Chi MTD Negative Normal NEGATIVE [facility] Comment on above: Performed By: #### D RUGRPD ####[facility] Fhqjpziwfp[address] [place], [place] [address]Dr. Soniya Chi OPI Negative Normal NEGATIVE [facility] Comment on above: Performed By: #### D RUGRPD ####[facility] Ttirpoxkyt8858 [place] [address]Dr. Soniya Chi OXY Negative Normal NEGATIVE [facility] Comment on above: Performed By: #### D RUGRPD ####[facility] Jlaljvordi6202 [place] [address]Dr. Soniya Chi PCP Negative Normal NEGATIVE [facility] Comment on above: Performed By: #### D RUGRPD ####[facility] Ysoynjlyjd5566 [place] [address]Dr. Soniya Chi PPX Negative Normal NEGATIVE [facility] Comment on above: Performed By: #### D RUGRPD ####[facility] Hlsfeoyhdn[address] [place], [place] [address]Dr. Soniya Chi TCA Negative Normal NEGATIVE [facility] Comment on above: Performed By: #### D RUGRPD ####[facility] Xsrrylzcwm07[address] [place], [place] [address]Dr. Soniya Chi THC Negative Normal NEGATIVE [facility] Comment on above: Performed By: #### D RUGRPD ####[facility] Inqdwpbhre[address] [place], [place] [address]Dr. Soniya Chi ER URINE PROFILEon 3 Bilirubin Ql (U) Negative Normal NEGATIVE [facility] Comment on above: Performed By: #### E RUR ####[facility] Nsxxdlwbrp[address] [place], [place] [address]Dr. Soniya Alon Clarity (U) CLEAR Normal CLEAR [facility] Comment on above: Performed By: #### E RUR ####[facility] Wyyhjwzswc[address] [place], [place] [address]Dr. Soniya Chi Color (U) LT. YELLOW Normal YELLOW [facility] Comment on above: Performed By: #### E RUR ####[facility] Edawogkosg20[address] [place], [place] [address]Dr. Soniya Alon ERUAHD A micrscopic examination will be performed if indicated. Normal [facility] Comment on above: Performed By: #### E RUR ####[facility] Qiphjrhqmq7267 [place] [address]Dr. Soniya Chi Glucose Ql (U) Negative Normal NEGATIVE [facility] Comment on above: Performed By: #### E RUR ####[facility] Kmyriusuao692[address] [place], [place] [address]Dr. Soniya Chi Hemoglobin Ql (U) Negative Normal NEGATIVE [facility] Comment on above: Performed By: #### E RUR ####[facility] Ykfkgnnbud108[address] [place], [place] [address]Dr. Soniya Chi Ketones Ql (U) Negative Normal NEGATIVE [facility] Comment on above: Performed By: #### E RUR ####[facility] Ukaxfxxmxs386[address] [place], [place] [address]Dr. Soniya Chi LEUKOCYTES Negative Normal NEGATIVE [facility] Comment on above: Performed By: #### E RUR ####[facility] Knduiafcwa28[address] [place], [place] [address]Dr. Gypsyjuan Alon Nitrite Ql (U) Negative Normal NEGATIVE [facility] Comment on above: Performed By: #### E RUR ####[facility] Cgmssrpgga35[address] [place], [place] [address]Dr. Gypsyjuan Alon pH (U) 5.0 [pH] Normal 5-9 [facility] Comment on above: Performed By: #### E RUR ####[facility] [address]ubswhvluo[address] [place], [place] [address]Dr. Soniya Chi SPEC GRAVITY 1.025 Normal 1.005-<=1.[address] [place] [address] Comment on above: Performed By: #### E RUR ####[facility] Sutsohptdv[address] [place], [place] [address]Dr. Soniya Chi UA PROTEIN Negative Normal NEGATIVE/ TRACE [facility] Comment on above: Performed By: #### E RUR ####[facility] Enlycwlvpy065[address] [place], [place] [address]Dr. Soniya Chi UR MICRO IND NOT INDICATED Normal [facility] Comment on above: Performed By: #### E RUR ####[facility] Rizbasdngz38[address] [place], [place] [address]Dr. Soniya Chi Urobilinogen Qn (U) 0.2 {Casimiro'U}/dL Normal 0.2 - 1. [address] [facility] Comment on above: Performed By: #### E RUR ####[facility] Lehqoolewp0453 [place] [address]Dr. Soniya Chi ETHANOL (BLD ALC)on 09-29-19 23 ALC NOTE NOTE: 80 mg/dl is th e legal limit for a blood alcohol level Normal [facility] Comment on above: Performed By: #### S ALFEI, ACET, ETH ####[facility] Yzdfevvpba0926 [place] [address]Dr. Soniya Alon Ethanol [Mass/Vol] mg/dL Normal [facility] Comment on above: Performed By: #### S ALFEI, ACET, ETH ####[facility] Bxkyvazkht8825 [place] [address]Dr. Soniya Chi FREE T3on 09-28-2022 FREE T3 2.81 pg/mlL Normal 2.18-3.98 [facility] Comment on above: Performed By: #### F T3 ####[facility] Zagmegjbwm[address] [place], [place] [address]Dr. Soniya Chi LACTATE/LACTIC ACIDon 2022 Lactate [Moles/Vol] 0.6 mmol/L Normal 0.4-2.0 [facility] Comment on above: Performed By: #### L ACT ####[facility] [address]kyzgwrsd65[address] [place], [place] [address]Dr. Gypsyjuan Chi PROF 14(COMP METB)on 023 Albumin [Mass/Vol] 3.4 g/dL Normal 3.4-5.0 [facility] Comment on above: Performed By: #### T SH, CMP, BNP, CMADM ####[facility] Qqixzmrurj1545 [place] [address]Dr. Soniya Chi Albumin/Globulin [Mass ratio] 0.9 {ratio} Normal [facility] Comment on above: Performed By: #### T SH, CMP, BNP, CMADM ####[facility] Pqwazndjnj9826 [place] [address]Dr. Soniya Chi ALP [Catalytic activity/Vol] 113 U/L Normal 46-116 [facility] Comment on above: Performed By: #### T SH, CMP, BNP, CMADM ####[facility] Vtawhiywnz6396 [place] [address]Dr. Soniya Chi ALT [Catalytic activity/Vol] 37 U/L Normal 14-59 [facility] Comment on above: Performed By: #### T SH, CMP, BNP, CMADM ####[facility] Huknxavdoq9998 [place] [address]Dr. Soniya Chi Anion gap [Moles/Vol] 11.6 mmol/L Normal [facility] Comment on above: Performed By: #### T SH, CMP, BNP, CMADM ####[facility] Xsnevoriyz8003 [place] [address]Dr. Soniya Chi AST [Catalytic activity/Vol] 19 U/L Normal 15-37 [facility] Comment on above: Performed By: #### T SH, CMP, BNP, CMADM ####[facility] Eihqzhqcjy3726 [place] [address]Dr. Soniya Chi Bilirubin [Mass/Vol] 0.4 mg/dL Normal 0.2-1.0 [facility] Comment on above: Performed By: #### T SH, CMP, BNP, CMADM ####[facility] Rejokdpbra1122 [place] [address]Dr. Soniya Chi Calcium [Mass/Vol] 10.1 mg/dL Normal 8.5-10.1 [facility] Comment on above: Performed By: #### T SH, CMP, BNP, CMADM ####[facility] Epllnqlvhk1608 [place] [address]Dr. Soniya Chi Chloride [Moles/Vol] 107 mmol/L Normal 98-107 [facility] Comment on above: Performed By: #### T SH, CMP, BNP, CMADM ####[facility] Pjsaxpfhnu3629 [place] [address]Dr. Soniya Chi CO2 [Moles/Vol] 29.9 mmol/L Normal 21.0-32.0 [facility] Comment on above: Performed By: #### T SH, CMP, BNP, CMADM ####[facility] Hpxcdisvnf2668 [place] [address]Dr. Soniya Chi Creatinine [Mass/Vol] 1.11 mg/dL Critically high 0.55-1.02 [facility] Comment on above: Performed By: #### T SH, CMP, BNP, CMADM ####[facility] Qmbtvpqxqf3896 [place] [address]Dr. Soniya Chi EGFR-AF SRI LANKAN 59 mL/min/1.73m2 Critically low >=[address] [facility] Comment on above: Performed By: #### T SH, CMP, BNP, CMADM ####[facility] Xugirtbqei9429 [place] [address]Dr. Soniya Chi EGFR-NON AF SRI LANKAN 49 mL/min/1.73m2 Critically low >=[address] [facility] Comment on above: Performed By: #### T SH, CMP, BNP, CMADM ####[facility] Sqnlfmjcmh[address] [place], [place] [address]Dr. Gypsyjuan Chi Globulin (S) [Mass/Vol] 4.0 g/dL Normal [facility] Comment on above: Performed By: #### T SH, CMP, BNP, CMADM ####[facility] Kvigwsqzol8124 [place] [address]Dr. Soniya Chi Glucose [Mass/Vol] 89 mg/dL Normal 74-106 [facility] Comment on above: Performed By: #### T SH, CMP, BNP, CMADM ####[facility] Sljmqtivfy5471 [place] [address]Dr. Soniya Chi Potassium [Moles/Vol] 4.5 mmol/L Normal 3.5-5.[address] [facility] Comment on above: Performed By: #### T SH, CMP, BNP, CMADM ####[facility] Zaqdtxqzkk8445 [place] [address]Dr. Soniya Chi Protein [Mass/Vol] 7.4 g/dL Normal 6.4-8.2 [facility] Comment on above: Performed By: #### T SH, CMP, BNP, CMADM ####[facility] Bnbagedidq6872 [place] [address]Dr. Soniya Chi Sodium [Moles/Vol] 144 mmol/L Normal 136-145 [facility] Comment on above: Performed By: #### T SH, CMP, BNP, CMADM ####[facility] Kifrbwrybi6229 [place] [address]Dr. Soniya hCi Urea nitrogen [Mass/Vol] 19.0 mg/dL Critically high 7.0-18.0 [facility] Comment on above: Performed By: #### T SH, CMP, BNP, CMADM ####[facility] Eohsvhwikk[address] [place], [place] [address]Dr. Soniya Chi Urea nitrogen/Creatinine [Mass ratio] 17.1 mg/mg Normal [facility] Comment on above: Performed By: #### T SH, CMP, BNP, CMADM ####[facility] H[address]wjxmkjab[address] [place], [place] [address]Dr. Soniya Chi PROTIMEon 09-28-2022 INR Coag (PPP) [Relative time] 1.01 {INR} Normal [facility] Comment on above: Performed By: #### P T, PTT ####[facility] Fravsxineu12[address] [place], [place] [address]Dr. Soniya Chi INR GUIDELINES SEE BELOW Normal [facility] Comment on above: Result Comment: SHARON RED INR: 2.0 - 3.0 CONDITIONS NOT LISTED BELOW 2.5 - 3.5 FOR PROSTHETIC HEART VALVE REPLACEMENT 2.5 - 3.5 RECURRENT THROMBOSIS Performed By: #### P T, PTT ####[facility] Wixordrces[address] [place], [place] [address]Dr. Soniya Chi PT Coag (PPP) [Time] 10.7 s Normal 9.0-11.[address] [facility] Comment on above: Performed By: #### P T, PTT ####[facility] Qiizsbtnsc336[address] [place], [place] [address]Dr. Soniya Chi PTTon 09-28-2022 aPTT Coag (Bld) [Time] 36.7 s Critically high 22.3-36. [address] [facility] Comment on above: Performed By: #### P T, PTT ####[facility] Hiiupaozux6168 [place] [address]Dr. Soniya Chi SALICYLATEon 09-28-2022 SALICYLATE <2.8 Normal <=19.[address] [facility] Comment on above: Performed By: #### S ALYC, ACET, ETH ####[facility] Bntrluinbp7852 [place] [address]DrKarolina Chi SYMPTOMATIC COVID-19 ANTIGEN on 09-28-2022 EUA Statement SEE BELOW Normal [facility] Comment on above: Result Comment: [...] revoked sooner. Performed By: #### C VDAGS ####[facility] Thpdboisis8090 [place] [address]Dr. Soniya Chi SARS-CoV-2 (COVID-19) RNA DORIAN+probe Ql (Unsp spec) Negative Normal NEGATIVE [facility] Comment on above: Performed By: #### C VDAGS ####[facility] Uarunostyk7725 [place] [address]Dr. Soniya Chi T4on 09-28-2022 T4 [Mass/Vol] 13.20 ug/dL Normal 4.80-13.90 [facility] Comment on above: Performed By: #### T 4 ####[facility] Djpggjwnhj[address] [place], [place] [address]Dr. Soniya Chi TSHon 09-28-2022 TSH 0.188 uIU/mL Critically low 0.358-3.740 [facility] Comment on above: Performed By: #### T SH, CMP, BNP, CMADM ####[facility] Gltavvgoul0030 [place] [address]Dr. Soniya Chi XR CHEST 1 Von 09-28-2022 XR CHEST [address] [facility] CBC AUTO DIFFon 09-16-2022 BASO # 0.0 103/ul Normal 0.0-0.1 [facility] Comment on above: Performed By: #### C BC ####[facility] Onbujhxrzr0296 [place] [address]Dr. Gypsyjuan Alon Basophils/100 WBC (Bld) 0.4 % Normal 0.2-2.0 [facility] Comment on above: Performed By: #### C BC ####[facility] Zomvqupycv64[address] [place], [place] [address]Dr. Gypsyjuan Alon EO # 0.1 103/ul Normal 0.0-0.7 [facility] Comment on above: Performed By: #### C BC ####[facility] Ahnowdxshq88[address] [place], [place] [address]Dr. Soniya Chi Eosinophils/100 WBC (Bld) 1.7 % Normal 0.9-7.0 [facility] Comment on above: Performed By: #### C BC ####[facility] Yopmhzarhh8420 [place] [address]Dr. Soniya Chi Erythrocyte distribution width (RBC) [Ratio] 15.9 % Critically high 11.0-15.0 [facility] Comment on above: Performed By: #### C BC ####[facility] Wsqlkwpifd5184 [place] [address]Dr. Soniya Chi Hematocrit (Bld) [Volume fraction] 30.6 % Critically low 36.0-48.0 [facility] Comment on above: Performed By: #### C BC ####[facility] [address]zjanlyihc[address] [place], [place] [address]Dr. Soniya Chi Hemoglobin (Bld) [Mass/Vol] 9.9 g/dL Critically low 12.0-16.0 [facility] Comment on above: Performed By: #### C BC ####[facility] Qzzglwvwqb8860 [place] [address]DrKarolina Chi IG # 0.01 10e3/ul Normal 0.00-0.03 [facility] Comment on above: Performed By: #### C BC ####[facility] Fyohjlmoay2552 [place] [address]DrKarolina Chi IG % 0.2 % Normal 0.0-0.5 [facility] Comment on above: Performed By: #### C BC ####[facility] Jmfyuzldfy[address] [place], [place] [address]DrKarolina Chi LYMPH # 1.2 103/ul Normal 1.2-3.[address] [facility] Comment on above: Performed By: #### C BC ####[facility] Oocqnqxcgc[address] [place], [place] [address]DrKarolina Chi Lymphocytes/100 WBC (Bld) 22.4 % Normal 20.5-60.[address] [facility] Comment on above: Performed By: #### C BC ####[facility] X[address]lljtobav[address] [place], [place] [address]DrKarolina Chi MANUAL DIFF REQ NO Normal [facility] Comment on above: Performed By: #### C BC ####[facility] Ztwydnxkwc7572 [place] [address]DrKarolina Chi MCH (RBC) [Entitic mass] 30.9 pg Normal 26.7-34.[address] [facility] Comment on above: Performed By: #### C BC ####[facility] Iejfxldnlf8979 [place] [address]DrKarolina Chi MCHC (RBC) [Mass/Vol] 32.4 g/dL Normal 29.9-35.[address] [facility] Comment on above: Performed By: #### C BC ####[facility] Wsljjcyfwx[address] [place], [place] [address]DrKarolina Chi MCV (RBC) [Entitic vol] 95.6 fL Normal 81.0-99.0 [facility] Comment on above: Performed By: #### C BC ####[facility] Pqctwnrhzi1589 [place] [address]DrKarolina Soniya Chi MONO # 0.4 103/ul Normal 0.3-0.8 [facility] Comment on above: Performed By: #### C BC ####[facility] Ozzudegfgt6916 [place] [address]DrKarolina Chi Monocytes/100 WBC (Bld) 6.9 % Normal 1.7-12.0 [facility] Comment on above: Performed By: #### C BC ####[facility] Ygsbksqxsz2178 [place] [id number]. Soniya Chi NEUT # 3.6 103/ul Normal 1.4-6.5 [facility] Comment on above: Performed By: #### C BC ####[facility] Pfnqyqhvlu3858 [place] [address]Dr. Gypsyjuan Chi Neutrophils/100 WBC (Bld) 68.4 % Normal 43.0-75.[address] [facility] Comment on above: Performed By: #### C BC ####[facility] Cphkibjhob0929 [place] [address]DrKarolina Soniya Alon Platelet mean volume (Bld) [Entitic vol] 9.5 fL Normal 9.5-13.[address] [facility] Comment on above: Performed By: #### C BC ####[facility] Wzgvsbbfxt5161 [place] [address]Dr. Gypsyjuan Alon PLT 219 103/ul Normal 150-[address] [facility] Comment on above: Performed By: #### C BC ####[facility] Xihqvqoobw1258 [place] [phone] Chi RBC 3.20 106/ul Critically low 4.20-5.40 [facility] Comment on above: Performed By: #### C BC ####[facility] Sdrvlkuywc6457 [place] [phone] Chi WBC 5.2 103/ul Normal 4.0-11.0 [facility] Comment on above: Performed By: #### C BC ####[facility] Bavbgergwb2321 [place] [address]Dr. Soniya Chi Office Visiton 09-16-2022 Follow-up visit [id number] Marley Osborn 1955 F Date Provider Department Center 09/16/2022 166-MICHELE LOZANO CARD [facility] No family history on file Level of Service:46334 MS OFFICE/OUTPATIENT ESTABLISHED MOD MDM 30-39 MIN Reason for Visit and Comments: Follow-up [084269] - Hospitalization - A-fib Edema [[id number]] Palpitations [802286] Normal [facility] PROF CHEM 8 (BAS METB)on Anion gap [Moles/Vol] 10.5 mmol/L Normal [facility] Comment on above: Performed By: #### B MP ####[facility] Mhloyrvdmk0473 [place] [address]Dr. Soniya Chi Calcium [Mass/Vol] 10.1 mg/dL Normal 8.5-10.1 [facility] Comment on above: Performed By: #### B MP ####[facility] Nquoqhxurc6613 [place] [address]Dr. Soniya Chi Chloride [Moles/Vol] 107 mmol/L Normal 98-107 [facility] Comment on above: Performed By: #### B MP ####[facility] Bfgyoycvvw2477 [place] [address]Dr. Soinya Chi CO2 [Moles/Vol] 29.9 mmol/L Normal 21.0-32.0 [facility] Comment on above: Performed By: #### B MP ####[facility] Ipqjnumvey5572 [place] [address]Dr. Soniya Chi Creatinine [Mass/Vol] 1.27 mg/dL Critically high 0.55-1.02 [facility] Comment on above: Performed By: #### B MP ####[facility] Lkcvfloyyo0952 [place] [address]Dr. Soniya Chi EGFR-AF SRI LANKAN 51 mL/min/1.73m2 Critically low >=[address] [facility] Comment on above: Performed By: #### B MP ####[facility] Dfhhymjdks5306 [place] [address]Dr. Soniya Chi EGFR-NON AF SRI LANKAN 42 mL/min/1.73m2 Critically low >=60 [facility] Comment on above: Performed By: #### B MP ####[facility] Etlsgfqtsl3591 [place] [address]Dr. Soniya Chi Glucose [Mass/Vol] 92 mg/dL Normal 74-106 [facility] Comment on above: Performed By: #### B MP ####[facility] Dqltvdyxyh5270 [place] [address]Dr. Soniya Chi Potassium [Moles/Vol] 4.4 mmol/L Normal 3.5-5.1 [facility] Comment on above: Performed By: #### B MP ####[facility] Sqytdzpxyi9099 [place] [address]Dr. Soniya Chi Sodium [Moles/Vol] 143 mmol/L Normal 136-145 [facility] Comment on above: Performed By: #### B MP ####[facility] Wajbwclyyr0175 [place] [address]Dr. Soniya Chi Urea nitrogen [Mass/Vol] 28.0 mg/dL Critically high 7.0-18.0 [facility] Comment on above: Performed By: #### B MP ####[facility] Twsgombhrw8481 [place] [address]Dr. Soniya Chi Urea nitrogen/Creatinine [Mass ratio] 22.0 mg/mg Normal [facility] Comment on above: Performed By: #### B MP ####[facility] Reqzkppknr6471 [place] [address]Dr. Soniya Chi Residential Recordson 09-11 Residential Records [id number] .00CD:127 Normal [facility] Outside [facility] Correspo ndenceon 09-11-2022 Outside [facility] Correspondence [id number] .[id number]:127 [facility] Ambulatory Visit Summaryon 0 09-10-2022 Ambulatory Visit [...] Tab) apixaban (apixaban 5 mg oral tablet) bisoprolol-hydrochlor othiazide (bisoprolol-hydrochlo rothiazide 2.5 mg-6.25 mg Tab) bisoprolol-hydrochlor othiazide (bisoprolol-hydrochlo rothiazide 2.5 mg-6.25 mg Tab) ergocalciferol (ergocalciferol 50,000 intl units Cap) levothyroxine (levothyroxine 75 mcg (0.075 mg) Tab) potassium chloride (Potassium Chloride (Nar-Wkct-Smu M20) 20 mEq oral tablet, extended release) [...] AM EDT With: MELVA ESCOBEDO MD Where: [facility] Medicine [facility] Family Medicine Office/Clini c Noteon 09-10-2022 Family Medicine Office/Clinic Note Chief Complaint hospital follow up HPI Staff TCM: Fax medical release to Michele for records. Face to face for Home health care, to fax notes to Hospital:[facility] Admission date:08/22/22 Discharge date:09/07/22 Symptoms the patient presented with: altered mental status. Current concerns: having hard time coping through this need her Luis rangel refilled Mamm: 04/17/22 normal Colon: 2-3 years [...] tablet, 5 mg= 1 tab(s), Oral, BID bisoprolol-hydrochlor othiazide 2.5 mg-6.25 mg Tab, 1 tab(s), Oral, Daily, Not taking bisoprolol-hydrochlor othiazide 2.5 mg-6.25 mg Tab, Not taking ergocalciferol 50,000 intl units Cap levothyroxine 75 mcg (0.075 mg) Tab, 75 mcg= 1 tab(s), Oral, Daily Potassium Chloride (Xnp-Fjsi-Kza M20) 20 mEq oral tablet, extended release, [...] Dementia: B (more content not included)... Normal [facility] Comment on above: Result Comment: Elec tronically Signed By: FANNY ROPER, MELVA Laboy\.br\Date and Time Signed: 09/10/22 11:29 EDT Outside [facility] Correspo ndenceon 09-02-2022 Outside [facility] Correspondence [id number] .00CD:127 Normal [facility] Basic Metabolic Panelon - Anion gap [Moles/Vol] 11 mmol/L 9 - 17 mmol/L [facility] [employer] Calcium [Mass/Vol] 10.0 mg/dL 8.6 - 10. 4 mg/dL [facility] [employer] Chloride [Moles/Vol] 105 mmol/L 98 - 10 7 mmol/L [facility] CO2 [Moles/Vol] 28 mmol/L 20 - 31 mmol/L [facility] [employer] Creatinine [Mass/Vol] 1.06 mg/dL High 0.50 - 0.90 mg/dL [facility] GFR/1.73 sq M.predicted MDRD (S/P/Bld) [Vol rate/Area] 58 mL/min/{1.73_m2} Low - PINF [facility] Comment on above: These results are not [...] [Mass/Vol] 89 mg/dL 70 - 99 mg/dL [facility] Interpretation and review of laboratory results Abnormal [facility] Potassium [Moles/Vol] 4.2 mmol/L 3.7 - 5.3 mmol/L [facility] Sodium [Moles/Vol] 144 mmol/L 135 - 144 mmol/L [facility] Urea nitrogen [Mass/Vol] 18 mg/dL 8 - 23 mg/dL [facility] Urea nitrogen/Creatinine (Bld) [Mass ratio] 17 9 - 20 [facility] Basic Metabolic Profon 08-27 Anion gap [Moles/Vol] 11 mmol/L Normal 9-17 [facility] Comment on above: Performed By: #### B MP, TSH #### [facility] [address] [place] [address] Lease Examiner: Kayley Doll MD BUN/CRE Ratio 17 Normal - [facility] Comment on above: Performed By: #### B MP, TSH #### [facility] [address] [place] [address] Lease Examiner: Kayley Doll MD Calcium [Mass/Vol] 10.0 mg/dL Normal 8.6-10.4 [facility] Comment on above: Performed By: #### B MP, TSH #### [facility] [address] [place] [address] Lease Examiner: Kayley Doll MD Chloride [Moles/Vol] 105 mmol/L Normal 98-107 [facility] Comment on above: Performed By: #### B MP, TSH #### [facility] [address] [place] [address] Lease Examiner: Kayley Doll MD CO2 [Moles/Vol] 28 mmol/L Normal 20- [facility] Comment on above: Performed By: #### B MP, TSH #### [facility] [address] [place] [address] Lease Examiner: Kayley Doll MD Creatinine [Mass/Vol] 1.06 mg/dL High 0.50-0.90 [facility] Comment on above: Performed By: #### B LONI, TSH #### [facility] [address] [place] [address] Lease Examiner: Kayley Doll MD GFR/1.73 sq M.predicted among non-blacks MDRD (S/P/Bld) [Vol rate/Area] 58 mL/min/{1.73_m2} Low >60 [facility] Comment on above: Result Comment: These results [...] Performed By: #### B LONI, TSH #### [facility] [address] [place] [address] Lease Examiner: Kayley Doll MD Glucose [Mass/Vol] 89 mg/dL Normal 70-99 [facility] Comment on above: Performed By: #### B LONI, TSH #### [facility] [address] [place] [address] Lease Examiner: Kayley Doll MD Potassium [Moles/Vol] 4.2 mmol/L Normal 3.7-5.3 [facility] Comment on above: Performed By: #### B LONI, TSH #### [facility] [address] [place] [address] Lease Examiner: Kayley Doll MD Sodium [Moles/Vol] 144 mmol/L Normal 135-144 [facility] Comment on above: Performed By: #### B LONI, TSH #### [facility] [address] [place] [address] Lease Examiner: Kayley Doll MD Urea nitrogen [Mass/Vol] 18 mg/dL Normal 8-23 [facility] Comment on above: Performed By: #### B MP, TSH #### [facility] [address] [place] [address] Lease Examiner: Kayley Doll MD Cult,Urineon 08-27-2022 Cult,Urine Specimen Description .CLEAN CATCH URINE Culture NO SIGNIFICANT GROWTH Report Status FINAL 08/26/2022 Normal [facility] Comment on above: Performed By: #### U RC #### [facility] [address] [place], [place] [id number] Lease Examiner: Jersey Dahl MD [facility] [address] [place] [address] Lease Examiner: Kayley Doll MD No Panel Informationon 08-27 [facility] TSHon 08-27-2022 TSH Qn 3.78 m[IU]/L [facility] Thyroid Stim. Horm.on 2022 Thyroid Stim. Horm. 3.78 uIU/mL Normal 0.30-5.00 [facility] Comment on above: Performed By: #### B MP, TSH #### [facility] [address] [place] [address] Lease Examiner: Kayley Doll MD Urinalysison 08-25-2022 Bilirubin Urine Negative NEGATIVE [facility] Color, UA Yellow Yellow [facility] Glucose Auto test strip (U) [Mass/Vol] Negative NEGATIVE [facility] Interpretation and review of laboratory results Abnormal [facility] Ketones (U) [Mass/Vol] Negative NEGATIVE [facility] Leukocyte esterase Auto test strip Ql (U) Negative NEGATIVE [facility] Nitrite Auto test strip Ql (U) Negative NEGATIVE [facility] Protein (U) [Mass/Vol] 7.0 mg/dL 5.0 - 9.0 [facility] Protein (U) [Mass/Vol] Negative NEGATIVE [facility] Specific [place], UA Low 1.010 - 1.020 [facility] Turbidity UA Clear Clear [facility] Urine Hgb Negative NEGATIVE [facility] Urobilinogen, Urine Normal Normal [facility] Urinalysis, Routineon 2022 Bilirubin, SemiQt,Ur Negative Normal NEG [facility] Comment on above: Performed By: #### U A #### [facility] [address] [place] [address] Lease Examiner: Kayley Doll MD Blood, Urine Negative Normal NEG [facility] Comment on above: Performed By: #### U A #### [facility] [address] [place] [address] Lease Examiner: Kayley Doll MD Clarity (U) Clear Normal CLEAR [facility] Comment on above: Performed By: #### U A #### [facility] [address] [place] [address] Lease Examiner: Kayley Doll MD Color (U) Yellow Normal YEL [facility] Comment on above: Performed By: #### U A #### [facility] [address] [place] [address] [place] [address] Lease Examiner: Kayley Doll MD Glucose Ql (U) Negative Normal NEG [facility] Comment on above: Performed By: #### U A #### [facility] [address] [place] [address] Lease Examiner: Kayley Doll MD Ketones Ql (U) Negative Normal NEG [facility] in Hospital Comment on above: Performed By: #### U A #### [facility] [address] [place] [address] Lease Examiner: Kayley Doll MD Leukocyte esterase Test strip Ql (U) Negative Normal NEG [facility] Comment on above: Performed By: #### U A #### [facility] [address] [place], [place] [address] Lease Examiner: Kayley Doll MD Nitrite,Ur Negative Normal NEG [facility] Comment on above: Performed By: #### U A #### [facility] [address] [place], [place] [address] Lease Examiner: Kayley Doll MD PH,Ur 7.0 Normal 5.0-9.0 [facility] Comment on above: Performed By: #### U A #### [facility] [address] [place], [place] [address] Lease Examiner: Kayley Doll MD Protein Ql (U) Negative Normal NEG [facility] Comment on above: Performed By: #### U A #### [facility] [address] [place] [id number] Lease Examiner: Kayley Doll MD Spec. [place],Ur <1.005 Low 1.010-1.020 [facility] Comment on above: Performed By: #### U A #### [facility] [address] [place], [facility] Lease Examiner: Kayley Doll MD Urobilinogen,Ur Normal Normal NORM [facility] Comment on above: Performed By: #### U A #### [facility] [address] [place], [facility] Lease Examiner: Kayley Doll MD CBC AUTO DIFFon 08-22-2022 BASO # 0.0 103/ul Normal 0.0-0.1 [facility] Comment on above: Performed By: #### C BC ####[facility] Peabngznjt75[address] [place] [address] Soniya Chi Basophils/100 WBC (Bld) 0.4 % Normal 0.2-2.0 [facility] Comment on above: Performed By: #### C BC ####[facility] Ckhyxndhya5728 [place] [address]Dr. Soniya Chi EO # 0.2 103/ul Normal 0.0-0.[address] [facility] Comment on above: Performed By: #### C BC ####[facility] Ogofdgtnpp5947 [place] [address]Dr. Soniya Chi Eosinophils/100 WBC (Bld) 2.7 % Normal 0.9-7.[address] [facility] Comment on above: Performed By: #### C BC ####[facility] [address] [place], [place] [address]Dr. Soniya Chi Erythrocyte distribution width (RBC) [Ratio] 15.1 % Critically high 11.0-15.[address] [facility] Comment on above: Performed By: #### C BC ####[facility] Enakdlkpux1662 [place] [address]Dr. Soniya Chi Hematocrit (Bld) [Volume fraction] 24.2 % Critically low 36.0-48.[address] [facility] Comment on above: Performed By: #### C BC ####[facility] Hbzrvdmiij[address] [place], [place] [address]Dr. Soniya Chi Hemoglobin (Bld) [Mass/Vol] 8.0 g/dL Critically low 12.0-16.[address] [facility] Comment on above: Performed By: #### C BC ####[facility] [address] [place], [place] [address]Dr. Soniya Chi IG # 0.03 10e3/ul Normal 0.00-0.[address] [facility] Comment on above: Performed By: #### C BC ####[facility] Fcqfejotbo[address] [place], [place] [address]Dr. Soniya Chi IG % 0.5 % Normal 0.0-0.[address] [facility] Comment on above: Performed By: #### C BC ####[facility] [address]qxk[address] [place], [place] [address]Dr. Gypsyjuan Chi LYMPH # 1.3 103/ul Normal 1.2-3.[address] [facility] Comment on above: Performed By: #### C BC ####[facility] Qlrwpsoruu9041 [place] [address]Dr. Soniya Alon Lymphocytes/100 WBC (Bld) 23.4 % Normal 20.5-60.0 [facility] Comment on above: Performed By: #### C BC ####[facility] Siktubuphf2784 [place] [address]Dr. Gypsyjuan Chi MANUAL DIFF REQ NO Normal [facility] Comment on above: Performed By: #### C BC ####[facility] Xwfeopyhox7837 [place] [address]Dr. Soniya Alon MCH (RBC) [Entitic mass] 30.8 pg Normal 26.7-34.0 [facility] Comment on above: Performed By: #### C BC ####[facility] [address]vweehray[address] [place], [place] [address]Dr. Gypsyjuan Chi MCHC (RBC) [Mass/Vol] 33.1 g/dL Normal 29.9-35.2 [facility] Comment on above: Performed By: #### C BC ####[facility] [address] [place], [place] [address]Dr. Gypsyjuan Chi MCV (RBC) [Entitic vol] 93.1 fL Normal 81.0-99.0 [facility] Comment on above: Performed By: #### C BC ####[facility] Jaliyjelau[address] [place], [place] [address]Dr. Soniya Chi MONO # 0.6 103/ul Normal 0.3-0.8 [facility] Comment on above: Performed By: #### C BC ####[facility] Yxdodvefhi[address] [place], [place] [address]Dr. Gypsyjuan Chi Monocytes/100 WBC (Bld) 10.3 % Normal 1.7-12.0 [facility] Comment on above: Performed By: #### C BC ####[facility] [address]mafl[address] [place], [place] [address]Dr. Soniya Chi NEUT # 3.5 103/ul Normal 1.4-6.5 [facility] Comment on above: Performed By: #### C BC ####[facility] Kdqjvgiquf6499 [place] [address]Dr. Soniya Chi Neutrophils/100 WBC (Bld) 62.7 % Normal 43.0-75.0 [facility] Comment on above: Performed By: #### C BC ####[facility] Yyciaclawz0478 [place] [address]Dr. Soniya Chi Platelet mean volume (Bld) [Entitic vol] 10.6 fL Normal 9.5-13.[address] [facility] Comment on above: Performed By: #### C BC ####[facility] Xxwacqgycu3895 [place] [address]Dr. Gypsyjuan Alon PLT 133 103/ul Critically low 150-450 [facility] Comment on above: Performed By: #### C BC ####[facility] Vahetyriac1846 [place] [address]Dr. Gypsyjuan Alon RBC 2.60 106/ul Critically low 4.20-5.40 [facility] Comment on above: Performed By: #### C BC ####[facility] Catbeourdx3282 [place] [address]Dr. Soniya Alon WBC 5.6 103/ul Normal 4.0-11.0 [facility] Comment on above: Performed By: #### C BC ####[facility] Kpqutwvbuj0274 [place] [address]Dr. Soniya Chi PROF 14(COMP METB)on 023 Albumin [Mass/Vol] 2.3 g/dL Critically low 3.4-5.0 [facility] Comment on above: Performed By: #### C MP, TSH ####[facility] Qerkwjeroy9121 [place] [address]Dr. Soniya Chi Albumin/Globulin [Mass ratio] 0.8 {ratio} Normal [facility] Comment on above: Performed By: #### C MP, TSH ####[facility] Wkfuqyqrip7125 [place] [address]Dr. Soniya Alon ALP [Catalytic activity/Vol] 80 U/L Normal 46-[address] [facility] Comment on above: Performed By: #### C MP, TSH ####[facility] Irorimroiv1439 [place] [address]Dr. Soniya Chi ALT [Catalytic activity/Vol] 23 U/L Normal 14-59 [facility] Comment on above: Performed By: #### C MP, TSH ####[facility] Rbzaovenvh8029 [place] [address]Dr. Soniya Chi Anion gap [Moles/Vol] 9.7 mmol/L Normal [facility] Comment on above: Performed By: #### C MP, TSH ####[facility] [address] [place], [place] [address]Dr. Soniya Chi AST [Catalytic activity/Vol] 20 U/L Normal 15-37 [facility] Comment on above: Performed By: #### C MP, TSH ####[facility] [address] [place], [place] [address]Dr. Soniya Chi Bilirubin [Mass/Vol] 0.6 mg/dL Normal 0.2-1.0 [facility] Comment on above: Performed By: #### C MP, TSH ####[facility] Laryufsjmz5170 [place] [address]Dr. Soniya Chi Calcium [Mass/Vol] 8.7 mg/dL Normal 8.5-10.1 [facility] Comment on above: Performed By: #### C MP, TSH ####[facility] Uhqoyzocab2968 [place] [address]Dr. Soniya Chi Chloride [Moles/Vol] 105 mmol/L Normal 98-[address] [facility] Comment on above: Performed By: #### C MP, TSH ####[facility] Bbgjazbnfb5123 [place] [address]Dr. Soniya Chi CO2 [Moles/Vol] 30.0 mmol/L Normal 21.0-32.0 [facility] Comment on above: Performed By: #### C MP, TSH ####[facility] Mtbgqnjxeq3753 [place] [address]Dr. Soniya Chi Creatinine [Mass/Vol] 0.96 mg/dL Normal 0.55-1.02 [facility] Comment on above: Performed By: #### C MP, TSH ####[facility] Rqfysvqthp8885 [place] [address]Dr. Soniya Chi EGFR-AF SRI LANKAN >60 Normal >=60 [facility] Comment on above: Performed By: #### C MP, TSH ####[facility] Jjqzsflaic8634 [place] [address]Dr. Soniya Chi EGFR-NON AF SRI LANKAN 58 mL/min/1.73m2 Critically low >=60 [facility] Comment on above: Performed By: #### C MP, TSH ####[facility] Mxrazamuwm9184 [place] [address]Dr. Soniya Chi Globulin (S) [Mass/Vol] 2.8 g/dL Normal T [facility] Comment on above: Performed By: #### C MP, TSH ####[facility] Ngotedzawr1981 [place] [address]Dr. Soniya Chi Glucose [Mass/Vol] 96 mg/dL Normal 74-106 [facility] Comment on above: Performed By: #### C MP, TSH ####[facility] Lloohdmiqo4537 [place] [address]Dr. Soniya Chi Potassium [Moles/Vol] 2.7 mmol/L Critically low 3.5-5.1 [facility] Comment on above: Performed By: #### C MP, TSH ####[facility] Wlweecxxnk6364 [place] [address]Dr. Soniya Chi Protein [Mass/Vol] 5.1 g/dL Critically low 6.4-8.2 [facility] Comment on above: Performed By: #### C MP, TSH ####[facility] Uczpgmfkiz9128 [place] [address]Dr. Soniya Chi Sodium [Moles/Vol] 141 mmol/L Normal 136-145 [facility] Comment on above: Performed By: #### C MP, TSH ####[facility] Pdhndaknsp1683 [place] [address]Dr. Soniya Chi Urea nitrogen [Mass/Vol] 17.0 mg/dL Normal 7.0-18.0 [facility] Comment on above: Performed By: #### C MP, TSH ####[facility] [address] [place], [place] [address]Dr. Soniya Chi Urea nitrogen/Creatinine [Mass ratio] 17.7 mg/mg Normal [facility] Comment on above: Performed By: #### C MP, TSH ####[facility] [address]fzdnz[address] [place], [place] [address]DrKarolina Chi TSHon 08-22-2022 TSH 2.840 uIU/mL Normal 0.358-3.740 [facility] Comment on above: Performed By: #### C MP, TSH ####[facility] [address]vuheqf[address] [place], [place] [address]Dr. Soniya Chi CBC AUTO DIFFon 08-21-2022 BASO # 0.0 103/ul Normal 0.0-0.1 [facility] Comment on above: Performed By: #### C BC ####[facility] Gnaqhgwgcs[address] [place], [place] [address]Dr. Soniya Chi Basophils/100 WBC (Bld) 0.3 % Normal 0.2-2.0 [facility] Comment on above: Performed By: #### C BC ####[facility] Imedolypjf[address] [place], [place] [address]Dr. Soniya Chi EO # 0.1 103/ul Normal 0.0-0.7 [facility] Comment on above: Performed By: #### C BC ####[facility] Yuitlyyrzc65[address] [place], [place] [address]Dr. Soniya Chi Eosinophils/100 WBC (Bld) 0.9 % Normal 0.9-7.0 [facility] Comment on above: Performed By: #### C BC ####[facility] Ewkgvpguev213[address] [place], [place] [address]Dr. Soniya Chi Erythrocyte distribution width (RBC) [Ratio] 15.1 % Critically high 11.0-15.0 [facility] Comment on above: Performed By: #### C BC ####[facility] Ckonhihrgz[address] [place], [place] [address]DrKarolina Chi Hematocrit (Bld) [Volume fraction] 27.3 % Critically low 36.0-48.[address] [facility] Comment on above: Performed By: #### C BC ####[facility] [address] [place] [address]Dr. Soniya Chi Hemoglobin (Bld) [Mass/Vol] 8.9 g/dL Critically low 12.0-16.[address] [facility] Comment on above: Performed By: #### C BC ####[facility] Gdipugjfue[address] [place], [place] [address]Dr. Soniya Chi IG # 0.03 10e3/ul Normal 0.00-0.[address] [facility] Comment on above: Performed By: #### C BC ####[facility] Ynvpandtij[address] [place], [place] [address]DrKarolina Chi IG % 0.5 % Normal 0.0-0.5 [facility] Comment on above: Performed By: #### C BC ####[facility] Yrldxezlfh[address] [place], [place] [address]DrKarolina Chi LYMPH # 1.0 103/ul Critically low 1.2-3.8 [facility] Comment on above: Performed By: #### C BC ####[facility] Kdzfsqlwlm[address] [place], [place] [address]DrKarolina Chi Lymphocytes/100 WBC (Bld) 14.9 % Critically low 20.5-60.[address] [facility] Comment on above: Performed By: #### C BC ####[facility] Chpuhgthky[address] [place], [place] [address]DrKarolina Chi MANUAL DIFF REQ NO Normal [facility] Comment on above: Performed By: #### C BC ####[facility] Etqaayrfft[address] [place], [place] [address]DrKarolina Cih MCH (RBC) [Entitic mass] 31.2 pg Normal 26.7-34.[address] [facility] Comment on above: Performed By: #### C BC ####[facility] Lorwktautc[address] [place], [place] [address]Dr. Soniya Chi MCHC (RBC) [Mass/Vol] 32.6 g/dL Normal 29.9-35.2 [facility] Comment on above: Performed By: #### C BC ####[facility] [address]ofsjt[address] [place] [address]Dr. Soniya Chi MCV (RBC) [Entitic vol] 95.8 fL Normal 81.0-99.0 [facility] Comment on above: Performed By: #### C BC ####[facility] Mosarlioir[address] [place], [place] [address]DrKarolina Soniya Alon MONO # 0.6 103/ul Normal 0.3-0.8 [facility] Comment on above: Performed By: #### C BC ####[facility] Mwcoamsweb344[address] [place], [place] [address]Dr. Gypsyjuan Chi Monocytes/100 WBC (Bld) 8.8 % Normal 1.7-12.0 [facility] Comment on above: Performed By: #### C BC ####[facility] Ightridqhz188[address] [place], [place] [address]Dr. Soniya Alon NEUT # 4.9 103/ul Normal 1.4-6.5 [facility] Comment on above: Performed By: #### C BC ####[facility] Syfbojypbs[address] [place], [place] [address]DrKarolina Soniya Alon Neutrophils/100 WBC (Bld) 74.6 % Normal 43.0-75.0 [facility] Comment on above: Performed By: #### C BC ####[facility] Ngfohkrmos[address] [place], [place] [address]Dr. Soniya Alon Platelet mean volume (Bld) [Entitic vol] 10.7 fL Normal 9.5-13.[address] [facility] Comment on above: Performed By: #### C BC ####[facility] Elipbwkwsv[address] [place], [place] [address]Dr. Soniya Alon PLT 127 103/ul Critically low 150-450 [facility] Comment on above: Performed By: #### C BC ####[facility] Sfsqwtpwco[address] [place], [place] [address]DrKarolina Soniya Chi RBC 2.85 106/ul Critically low 4.20-5.40 [facility] Comment on above: Performed By: #### C BC ####[facility] [address]ffixly[address] [place] [address]Dr. Soniya Alon WBC 6.6 103/ul Normal 4.0-11.0 [facility] Comment on above: Performed By: #### C BC ####[facility] [address]ef[address]pe[address] [place] [address]Dr. Gypsyjuan Chi PROF 14(COMP METB)on 023 Albumin [Mass/Vol] 2.8 g/dL Critically low 3.4-5.0 [facility] Comment on above: Performed By: #### T TIFFANIE, CMP ####[facility] Jvmmcqgxag175[address] [place], [place] [address]Dr. Gypsyjuan Chi Albumin/Globulin [Mass ratio] 0.8 {ratio} Normal [facility] Comment on above: Performed By: #### T TIFFANIE, CMP ####[facility] Euthuyrvvy[address] [place], [place] [address]Dr. Soniya Alon ALP [Catalytic activity/Vol] 101 U/L Normal 46-116 [facility] Comment on above: Performed By: #### T TIFFANIE, CMP ####[facility] Vws[address]xyiozp[address] [place] [address]Dr. Soniya Chi ALT [Catalytic activity/Vol] 27 U/L Normal 14-59 [facility] Comment on above: Performed By: #### T TIFFANIE, CMP ####[facility] Celknkaehy[address] [place] [address]Dr. Soniya Alon Anion gap [Moles/Vol] 15.6 mmol/L Normal [facility] Comment on above: Performed By: #### T TIFFANIE, CMP ####[facility] Fewlcojywo2560[address] [place], [place] [address]Dr. Soniya Chi AST [Catalytic activity/Vol] 23 U/L Normal 15-37 [facility] Comment on above: Performed By: #### T TIFFANIE, CMP ####[facility] Ad[address]qqrzog[address] [place] [address]Dr. Soniya Chi Bilirubin [Mass/Vol] 0.9 mg/dL Normal 0.2-1.0 [facility] Comment on above: Performed By: #### T SH, CMP ####[facility] Admcjqixrr934[address] [place], [place] [address]Dr. Soniya Chi Calcium [Mass/Vol] 9.1 mg/dL Normal 8.5-10.1 [facility] Comment on above: Performed By: #### T SH, CMP ####[facility] Aosnsxtcqj890[address] [place], [place] [address]Dr. Soniya Chi Chloride [Moles/Vol] 108 mmol/L Critically high 98-107 [facility] Comment on above: Performed By: #### T TIFFANIE, CMP ####[facility] Ltppulqxsw657[address] [place], [place] [address]Dr. Soniya Chi CO2 [Moles/Vol] 25.8 mmol/L Normal 21.0-32.0 [facility] Comment on above: Performed By: #### T SH, CMP ####[facility] Igpvdigong62[address] [place], [place] [address]Dr. Soniya Chi Creatinine [Mass/Vol] 1.01 mg/dL Normal 0.55-1.02 [facility] Comment on above: Performed By: #### T TIFFANIE, CMP ####[facility] Japskftewr[address] [place], [place] [address]Dr. Soniya Chi EGFR-AF SRI LANKAN >60 Normal >=60 [facility] Comment on above: Performed By: #### T SH, CMP ####[facility] Ebmpxbrqug[address] [place], [place] [address]Dr. Soniya Chi EGFR-NON AF SRI LANKAN 55 mL/min/1.73m2 Critically low >=60 [facility] Comment on above: Performed By: #### T SH, CMP ####[facility] Firkwewkzc25[address] [place], [place] [address]Dr. Soniya Chi Globulin (S) [Mass/Vol] 3.3 g/dL Normal [facility] Comment on above: Performed By: #### T SH, CMP ####[facility] [address] [place] [address]Dr. Soniya Chi Glucose [Mass/Vol] 68 mg/dL Critically low 74-106 [facility] Comment on above: Performed By: #### T SH, CMP ####[facility] Qc[address]xlnpo[address] [place] [address]Dr. Soniya Chi Potassium [Moles/Vol] 3.4 mmol/L Critically low 3.5-5.1 [facility] Comment on above: Performed By: #### T SH, CMP ####[facility] Prx[address]mkc6[address] [place] [address]Dr. Soniya Chi Protein [Mass/Vol] 6.1 g/dL Critically low 6.4-8.2 [facility] Comment on above: Performed By: #### T TIFFANIE, CMP ####[facility] Tsdgijvyob[address] [place], [place] [address]Dr. Soniya Chi Sodium [Moles/Vol] 146 mmol/L Critically high 136-145 [facility] Comment on above: Performed By: #### T TIFFANIE, CMP ####[facility] [address]xadwvo[address] [place] [address]Dr. Soniya Chi Urea nitrogen [Mass/Vol] 21.0 mg/dL Critically high 7.0-18.0 [facility] Comment on above: Performed By: #### T TIFFANIE, CMP ####[facility] Ffaxawlelj[address] [place], [place] [address]Dr. Soniya Chi Urea nitrogen/Creatinine [Mass ratio] 20.8 mg/mg Normal [facility] Comment on above: Performed By: #### T TIFFANIE, CMP ####[facility] Ltggdbcwjm[address] [place], [place] [address]Dr. Soniya Chi Patient Educationon 08-22-19 23 Patient Education Cooking With Less Salt Cooking with less salt is one way to reduce the amount of sodium you get from food. Depending on your condition and overall health, your health care provider or diet and nutrition services aide (dietitian) may recommend that you reduce your [...] Use sodium-free baking soda when baking. ? [place], braise, or roast foods to add flavor [...] you can pair it with. Herbs ? Mcnairy leaves ? Soups, meat and vegetable dishes, and spaghetti sauce. ? Basil ? Namibian dishes, soups, pasta, and fish dishes. ? Cilantro ? Meat, poultry, and vegetable dishes. ? [place] powder ? Marinades and [place] dishes. ? Chives ? Salad dressings and potato dishes. ? Cumin ? [place] dishes, couscous, and meat dishes. ? Dill ? Fish dishes, sauces, and salads. ? Fennel ? Meat and vegetable dishes, breads, and cookies. ? Garlic (do not use garlic salt) ? Nam[place]ian dishes, meat dishes, salad dressings, and sauces. ? Marjoram ? Soups, potato dishes, and meat dishes. ? Oregano ? Pizza and spaghetti sauce. ? Parsley ? Salads, soups, pasta, and meat dishes. ? Dalila ? Nam[place]ian dishes, salad dressings, soups, and red meats. [...] and low-sodium cheeses. Good cheese choices include Z[place]ian, Scott Obdulio, and mozzarella. Always check the label [...] 05/19/2006 Document Revised: 05/01/2018 Document Reviewed: 05/27/2017 [employer] Patient Education ? 2019 [employer]. Nephr (more content not included)... Normal [facility] TSHon 08-21-2022 TSH 4.750 uIU/mL Critically high 0.358-3.740 [facility] Comment on above: Performed By: #### T , CMP ####[facility] Ociivrujvo[address] [place], [place] [address]DrKarolina Chi CBC AUTO DIFFon 08-20-2022 BASO # 0.0 103/ul Normal 0.0-0.1 [facility] Comment on above: Performed By: #### C BC ####[facility] Kdvoudsjeq[address] [place], [place] [address]DrKarolina Chi Basophils/100 WBC (Bld) 0.3 % Normal 0.2-2.0 [facility] Comment on above: Performed By: #### C BC ####[facility] V[address]obccprm[address] [place] [address]DrKarolina Chi EO # 0.0 103/ul Normal 0.0-0.7 [facility] Comment on above: Performed By: #### C BC ####[facility] Gjcasftckn[address] [place], [place] [address]DrKarolina Chi Eosinophils/100 WBC (Bld) 0.6 % Critically low 0.9-7.0 [facility] Comment on above: Performed By: #### C BC ####[facility] Cjmkbbpdhg[address] [place], [place] [address]DrKarolina Chi Erythrocyte distribution width (RBC) [Ratio] 15.5 % Critically high 11.0-15.0 [facility] Comment on above: Performed By: #### C BC ####[facility] [address]vpvn[address] [place] [address]DrKarolina Chi Hematocrit (Bld) [Volume fraction] 26.7 % Critically low 36.0-48.0 [facility] Comment on above: Performed By: #### C BC ####[facility] Ihidqoyibo[address] [place], [place] [address]DrKarolina Chi Hemoglobin (Bld) [Mass/Vol] 8.7 g/dL Critically low 12.0-16.0 [facility] Comment on above: Performed By: #### C BC ####[facility] Kywrpkzaff[address] [place], [place] [address]DrKarolina Chi IG # 0.02 10e3/ul Normal 0.00-0.03 [facility] Comment on above: Performed By: #### C BC ####[facility] Gzihnlaies[address] [place], [place] [address]DrKarolina Chi IG % 0.3 % Normal 0.0-0.5 [facility] Comment on above: Performed By: #### C BC ####[facility] Uaucwubjue[address] [place], [place] [address]DrKarolina Chi LYMPH # 0.9 103/ul Critically low 1.2-3.8 [facility] Comment on above: Performed By: #### C BC ####[facility] Uotkcvamvh[address] [place], [place] [address]DrKarolina Chi Lymphocytes/100 WBC (Bld) 12.8 % Critically low 20.5-60.[address] [facility] Comment on above: Performed By: #### C BC ####[facility] [address]qntjnsb19[address] [place], [place] [address]DrKarolina Chi MANUAL DIFF REQ NO Normal [facility] Comment on above: Performed By: #### C BC ####[facility] Pvgxrkpezg75[address] [place], [place] [address]DrKarolina Chi MCH (RBC) [Entitic mass] 30.7 pg Normal 26.7-34.0 [facility] Comment on above: Performed By: #### C BC ####[facility] Ckfoscfmqo[address] [place] [address]DrKarolina Chi MCHC (RBC) [Mass/Vol] 32.6 g/dL Normal 29.9-35.2 [facility] Comment on above: Performed By: #### C BC ####[facility] V[address]atpct[address] [place], [place] [address]DrKarolina Chi MCV (RBC) [Entitic vol] 94.3 fL Normal 81.0-99.0 [facility] Comment on above: Performed By: #### C BC ####[facility] Qnjrylbnff[address] [place], [place] [address]DrKarolina Chi MONO # 0.6 103/ul Normal 0.3-0.8 [facility] Comment on above: Performed By: #### C BC ####[facility] Uqspnvntbu[address] [place], [place] [address]DrKarolina Chi Monocytes/100 WBC (Bld) 9.4 % Normal 1.7-12.0 [facility] Comment on above: Performed By: #### C BC ####[facility] Viqwkhqtrt[address] [place], [place] [address]DrKarolina Chi NEUT # 5.1 103/ul Normal 1.4-6.5 [facility] Comment on above: Performed By: #### C BC ####[facility] S[address]otvgcwg[address] [place], [place] [address]DrKarolina Chi Neutrophils/100 WBC (Bld) 76.6 % Critically high 43.0-75.0 [facility] Comment on above: Performed By: #### C BC ####[facility] Onqbpkklhp[address] [place], [place] [address]DrKarolina Chi Platelet mean volume (Bld) [Entitic vol] 11.6 fL Normal 9.5-13.5 [facility] Comment on above: Performed By: #### C BC ####[facility] Tfpthxjzld[address] [place], [place] [address]Dr. Soniya Chi PLT 113 103/ul Critically low 150-450 [facility] Comment on above: Performed By: #### C BC ####[facility] [address] [place], [place] [address]Uw. Soniya Chi RBC 2.83 106/ul Critically low 4.20-5.40 [facility] Comment on above: Performed By: #### C BC ####[facility] Kkewmen[address] [place], [place] [address]Xk. Soniya Chi WBC 6.6 103/ul Normal 4.0-11.0 [facility] Comment on above: Performed By: #### C BC ####[facility] [address]ez[address] [place], [place] [address]Fq. Soniya Chi CULTURE URINEon 08-20-2022 CULTURE URINE Normal [facility] Comment on above: Performed By: #### U RCX ####[facility] [address] [place], [place] [address]Fz. Soniya Chi Lab Reportson 08-20-2022 Lab Reports [id number]#1. 00CD:127 Normal [facility] Lab Reports [id number]#1 .00CD:127 Normal [facility] Lab Reports [id number]#1 .00CD:127 Normal [facility] Correspo ndenceon 08-20-2022 [facility] Correspondence [id number]#1. 00CD:127 Normal [facility] Correspondence [id number]#1. 00CD:127 Normal [facility] Correspondence [id number]#1. 00CD:127 Normal [facility] PROF 14(COMP METB)on 023 Albumin [Mass/Vol] 2.7 g/dL Critically low 3.4-5.0 [facility] Comment on above: Performed By: #### C MP, TSH ####[facility] [address] [place] [address]Dr. Soniya Chi Albumin/Globulin [Mass ratio] 0.9 {ratio} Normal [facility] Comment on above: Performed By: #### C MP, TSH ####[facility] [address]mprngujme[address] [place] [address]Dr. Soniya Chi ALP [Catalytic activity/Vol] 83 U/L Normal 46-116 [facility] Comment on above: Performed By: #### C MP, TSH ####[facility] Apbhozijwg[address] [place] [address]Dr. Soniya Chi ALT [Catalytic activity/Vol] 29 U/L Normal 14-59 [facility] Comment on above: Performed By: #### C MP, TSH ####[facility] Pvhibusvfu[address] [place] [address]Dr. Soniya Chi Anion gap [Moles/Vol] 12.3 mmol/L Normal [facility] Comment on above: Performed By: #### C MP, TSH ####[facility] Uvhldaiosz5954 [place] [address]Dr. Soniya Chi AST [Catalytic activity/Vol] 21 U/L Normal 15-37 [facility] Comment on above: Performed By: #### C MP, TSH ####[facility] Llgiopgnfx5[address] [place] [address]Dr. Soniya hCi Bilirubin [Mass/Vol] 1.2 mg/dL Critically high 0.2-1.0 [facility] Comment on above: Performed By: #### C MP, TSH ####[facility] Ukpohcfrjj05[address] [place] [address]Dr. Soniya Chi Calcium [Mass/Vol] 9.3 mg/dL Normal 8.5-10.1 [facility] Comment on above: Performed By: #### C MP, TSH ####[facility] Atrbdhltwj20[address] [place] [address]Dr. Soniya Chi Chloride [Moles/Vol] 109 mmol/L Critically high 98-[address] [facility] Comment on above: Performed By: #### C MP, TSH ####[facility] Vbdmquarcf[address] [place], [place] [address]Dr. Soniya Chi CO2 [Moles/Vol] 27.1 mmol/L Normal 21.0-32.0 [facility] Comment on above: Performed By: #### C MP, TSH ####[facility] Ogkfjfqaym[address] [place], [place] [address]Dr. Soniya Chi Creatinine [Mass/Vol] 1.13 mg/dL Critically high 0.55-1.02 [facility] Comment on above: Performed By: #### C LONI, TSH ####[facility] [address]zkmokis[address] [place], [place] [address]Dr. Soniya Alon EGFR-AF SRI LANKAN 58 mL/min/1.73m2 Critically low >=60 [facility] Comment on above: Performed By: #### C LONI, TSH ####[facility] Kactiobclb[address] [place], [place] [address]Dr. Soniya Alon EGFR-NON AF SRI LANKAN 48 mL/min/1.73m2 Critically low >=60 [facility] Comment on above: Performed By: #### C LONI, TSH ####[facility] [address]fcdjyz[address] [place], [place] [address]Dr. Gypsyjuan Chi Globulin (S) [Mass/Vol] 3.1 g/dL Normal [facility] Comment on above: Performed By: #### C LONI, TSH ####[facility] [address]opwqub[address] [place], [place] [address]Dr. Gypsyjuan Chi Glucose [Mass/Vol] 80 mg/dL Normal 74-106 [facility] Comment on above: Performed By: #### C MP, TSH ####[facility] Zxujtizxou[address] [place], [place] [address]Dr. Gypsyjuan Chi Potassium [Moles/Vol] 3.4 mmol/L Critically low 3.5-5.1 [facility] Comment on above: Performed By: #### C MP, TSH ####[facility] [address]ym[address]zhlst[address] [place] [address]Dr. Soniya Chi Protein [Mass/Vol] 5.8 g/dL Critically low 6.4-8.2 [facility] Comment on above: Performed By: #### C MP, TSH ####[facility] Kdoukuoiti35[address] [place] [address]Dr. Soniya Chi Sodium [Moles/Vol] 145 mmol/L Normal 136-145 [facility] Comment on above: Performed By: #### C MP, TSH ####[facility] Bnqxbmozvh6976 [place] [address]Dr. Soniya Chi Urea nitrogen [Mass/Vol] 23.0 mg/dL Critically high 7.0-18.0 [facility] Comment on above: Performed By: #### C MP, TSH ####[facility] Qvqbxxdaae6047 [place] [address]Dr. Soniya Chi Urea nitrogen/Creatinine [Mass ratio] 20.4 mg/mg Normal [facility] Comment on above: Performed By: #### C MP, TSH ####[facility] Hnxcnzwwjb4014 [place] [address]Dr. Soniya Chi TSHon 08-20-2022 TSH 6.050 uIU/mL Critically high 0.358-3.740 [facility] Comment on above: Performed By: #### C MP, TSH ####[facility] [address]osdufufi8[address] [place], [place] [address]Dr. Soniya Chi US THYROIDon 08-20-2022 US THYROID Normal [facility] ECHOCARDIO M/2D COMPLETEon 0 08-19-2022 ECHOCARDIO M/2D COMPLETE Normal [facility] PROF 14(COMP METB)on 023 Albumin [Mass/Vol] 2.8 g/dL Critically low 3.4-5.0 [facility] Comment on above: Performed By: #### T SH, CMP ####[facility] Ncolnwjbku[address] [place] [address]Dr. Soniya Chi Albumin/Globulin [Mass ratio] 0.9 {ratio} Normal [facility] Comment on above: Performed By: #### T TIFFANIE, CMP ####[facility] [address]bdzyqlwg350[address] [place] [address]Dr. Soniya Chi ALP [Catalytic activity/Vol] 95 U/L Normal 46-116 [facility] Comment on above: Performed By: #### T TIFFANIE, CMP ####[facility] [address]purvdbjj[address] [place], [place] [address]Dr. Soniya Chi ALT [Catalytic activity/Vol] 33 U/L Normal 14-59 [facility] Comment on above: Performed By: #### T TIFFANIE, CMP ####[facility] Sdllgyvilj[address] [place], [place] [address]Dr. Soniya Chi Anion gap [Moles/Vol] 13.2 mmol/L Normal [facility] Comment on above: Performed By: #### T TIFFANIE, CMP ####[facility] Ifjoozwaph[address] [place], [place] [address]Dr. Soniya Chi AST [Catalytic activity/Vol] 25 U/L Normal 15-37 [facility] Comment on above: Performed By: #### T TIFFANIE, CMP ####[facility] Xujqknjbnx[address] [place], [place] [address]Dr. Soniya Chi Bilirubin [Mass/Vol] 1.1 mg/dL Critically high 0.2-1.0 [facility] Comment on above: Performed By: #### T TIFFANIE, CMP ####[facility] [address]xbkqpc[address] [place], [place] [address]Dr. Soniya Chi Calcium [Mass/Vol] 9.4 mg/dL Normal 8.5-10.1 [facility] Comment on above: Performed By: #### T TIFFANIE, CMP ####[facility] Aovzigkeyl[address] [place], [place] [address]Dr. Soniya Alon Chloride [Moles/Vol] 110 mmol/L Critically high 98-107 [facility] Comment on above: Performed By: #### T TIFFANIE, CMP ####[facility] Earcyarxvc[address] [place], [place] [address]Dr. Soniya Chi CO2 [Moles/Vol] 27.9 mmol/L Normal 21.0-32.0 [facility] Comment on above: Performed By: #### T SH, CMP ####[facility] Xaiphgiagi[address] [place] [id number]. Soniya Chi Creatinine [Mass/Vol] 1.32 mg/dL Critically high 0.55-1.02 [facility] Comment on above: Performed By: #### T SH, CMP ####[facility] Xxihznmflx[address] [place] [address]Dr. Soniya Chi EGFR-AF SRI LANKAN 49 mL/min/1.73m2 Critically low >=60 [facility] Comment on above: Performed By: #### T SH, CMP ####[facility] Jevmeinjwu[address] [place], [place] [address]Dr. Soniya Chi EGFR-NON AF SRI LANKAN 40 mL/min/1.73m2 Critically low >=60 [facility] Comment on above: Performed By: #### T SH, CMP ####[facility] Rnfpchvegc[address] [place], [place] [address]Dr. Soniya Chi Globulin (S) [Mass/Vol] 3.1 g/dL Normal [facility] Comment on above: Performed By: #### T SH, CMP ####[facility] Oxnmfeqrey508[address] [place], [place] [address]Dr. Soniya Chi Glucose [Mass/Vol] 87 mg/dL Normal 74-106 [facility] Comment on above: Performed By: #### T SH, CMP ####[facility] Mqqsddtvma424[address] [place], [place] [address]Dr. Soniya Chi Potassium [Moles/Vol] 4.1 mmol/L Normal 3.5-5.1 [facility] Comment on above: Performed By: #### T SH, CMP ####[facility] Jrmcrgeqfj[address] [place], [place] [address]Dr. Soniya Chi Protein [Mass/Vol] 5.9 g/dL Critically low 6.4-8.2 [facility] Comment on above: Performed By: #### T SH, CMP ####[facility] Ifuqpjoleo[address] [place], [place] [address]Dr. Yijuan Chi Sodium [Moles/Vol] 147 mmol/L Critically high 136-145 [facility] Comment on above: Performed By: #### T TIFFANIE, CMP ####[facility] [address]kxqapeyhf[address] [place] [address]Dr. Soniya Chi Urea nitrogen [Mass/Vol] 21.0 mg/dL Critically high 7.0-18.0 [facility] Comment on above: Performed By: #### T TIFFANIE, CMP ####[facility] Yssmxvoyom[address] [place], [place] [address]Dr. Soniya Chi Urea nitrogen/Creatinine [Mass ratio] 15.9 mg/mg Normal [facility] Comment on above: Performed By: #### T TIFFANIE, CMP ####[facility] Vdtxhjerkn7[address] [place], [place] [address]Dr. Soniya Chi TSHon 08-19-2022 TSH 5.781 uIU/mL Critically high 0.358-3.740 [facility] Comment on above: Performed By: #### T TIFFANIE, CMP ####[facility] Ieinfqlcoj1134[address] [place], [place] [address]Dr. Soniya Chi CT STROKE HEAD WOon 08-19-19 CT STROKE HEAD WO Normal [facility] UA RANDOM W/MICROSCOPICon BACTERIA MODERATE Abnormal NONE SEEN [facility] Comment on above: Performed By: #### U AMIC ####[facility] Cwferodtfa[address] [place] [address]Dr. Soniya Chi Bilirubin Ql (U) Negative Normal NEGATIVE [facility] Comment on above: Performed By: #### U AMIC ####[facility] Erfvlgrtfl2[address] [place] [phone]. Soniya Chi CAST NONE SEEN Normal NONE SEEN [facility] Comment on above: Performed By: #### U AMIC ####[facility] Xkueztwnrq13[address] [place] [phone]. Soniya Chi Clarity (U) CLEAR Normal CLEAR [facility] Comment on above: Performed By: #### U AMIC ####[facility] Qqjdtcgeef2484 [place] [address]Dr. Soniya Chi Color (U) RED Abnormal YELLOW [facility] Comment on above: Performed By: #### U AMIC ####[facility] Lkwmibgfrx5[address] [place] [address]Dr. Soniya Chi Crystals LM Nom (Urine sed) NONE SEEN Normal NONE SEEN [facility] Comment on above: Performed By: #### U AMIC ####[facility] Wglccfgkdk4587 [place] [address]Dr. Soniya Chi Epithelial cells LM Ql (Urine sed) NONE SEEN Normal NONE SEEN /RARE [facility] Comment on above: Performed By: #### U AMIC ####[facility] Ewuclnaqmw022[address] [place], [place] [address]Dr. Soniya Chi Glucose Ql (U) Negative Normal NEGATIVE [facility] Comment on above: Performed By: #### U AMIC ####[facility] Jaiznhjlop0811[address] [place], [place] [address]Dr. Soniya Chi Hemoglobin Ql (U) LARGE Abnormal NEGATIVE [facility] Comment on above: Performed By: #### U AMIC ####[facility] Bcfwmzplcf9[address] [place], [place] [address]Dr. Soniya Chi Ketones Ql (U) 40 mg/dl Abnormal NEGATIVE [facility] Comment on above: Performed By: #### U AMIC ####[facility] Bppjcnomur677[address] [place], [place] [address]Dr. Soniya Chi LEUKOCYTES LARGE Abnormal NEGATIVE [facility] Comment on above: Performed By: #### U AMIC ####[facility] Owwiuaeaop489[address] [place], [place] [address]Dr. Soniya Chi MUCOUS NONE SEEN Normal NONE SEEN [facility] Comment on above: Performed By: #### U AMIC ####[facility] Seibnsdzhu3933[address] [place], [place] [address]Dr. Soniya Chi Nitrite Ql (U) Positive Abnormal NEGATIVE [facility] Comment on above: Performed By: #### U AMIC ####[facility] Lrnoxdmghj2336[address] [place], [place] [address]Dr. Soniya Chi pH (U) 5.5 [pH] Normal 5-9 [facility] Comment on above: Performed By: #### U AMIC ####[facility] Xptbjwpnke8[address] [place] [address]Dr. Soniya Chi RBC (U) [#/Vol] /uL Abnormal 0-2 [facility] Comment on above: Performed By: #### U AMIC ####[facility] Dbqvclzuao6973 [place] [address]Dr. Soniya Chi SPEC GRAVITY >=1.030 Abnormal 1.005-<=1.0 25 [facility] Comment on above: Performed By: #### U AMIC ####[facility] Kyzhsciauv684[address] [place], [place] [address]Dr. Soniya Chi UA PROTEIN 100 mg/dl Abnormal NEGATIVE/ TRACE [facility] Comment on above: Performed By: #### U AMIC ####[facility] Iyvlqqguda010[address] [place], [place] [address]Dr. Soniya Chi Urobilinogen Qn (U) 1.0 {Casimiro'U}/dL Normal 0.2 - 1. 0 [facility] Comment on above: Performed By: #### U AMIC ####[facility] Munkoteqnb694[address] [place], [place] [address]Dr. Soniya Chi WBC (U) [#/Vol] /uL Abnormal NONE SEEN [facility] Comment on above: Performed By: #### U AMIC ####[facility] Qvdtukhkqo9035[address] [place], [place] [address]Dr. Soniya Chi CBC AUTO DIFFon 08-17-2022 BASO # 0.0 103/ul Normal 0.0-0.1 [facility] Comment on above: Performed By: #### C BC ####[facility] Fcvsyovzoe7[address] [place], [place] [address]Dr. Soniya Chi Basophils/100 WBC (Bld) 0.2 % Normal 0.2-2.0 [facility] Comment on above: Performed By: #### C BC ####[facility] Qmeawudprz394[address] [place], [place] [address]Dr. Soniya Chi EO # 0.0 103/ul Normal 0.0-0.[address] [facility] Comment on above: Performed By: #### C BC ####[facility] Kzdesgogmy25[address] [place] [address]Dr. Soniya Chi Eosinophils/100 WBC (Bld) 0.6 % Critically low 0.9-7.[address] [facility] Comment on above: Performed By: #### C BC ####[facility] Vlgalaskir6[address] [place], [place] [address]Dr. Soniya Chi Erythrocyte distribution width (RBC) [Ratio] 15.1 % Critically high 11.0-15.[address] [facility] Comment on above: Performed By: #### C BC ####[facility] Ousrmzboif[address] [place], [place] [address]Dr. Soniya Chi Hematocrit (Bld) [Volume fraction] 30.0 % Critically low 36.0-48.0 [facility] Comment on above: Performed By: #### C BC ####[facility] Xghelnuese917[address] [place], [place] [address]Dr. Soniya Chi Hemoglobin (Bld) [Mass/Vol] 9.8 g/dL Critically low 12.0-16.[address] [facility] Comment on above: Performed By: #### C BC ####[facility] Pgbtqsfent[address] [place], [place] [address]Dr. Soniya Chi IG # 0.02 10e3/ul Normal 0.00-0.[address] [facility] Comment on above: Performed By: #### C BC ####[facility] Dukdfwjlje879[address] [place], [place] [address]Dr. Soniya Chi IG % 0.4 % Normal 0.0-0.[address] [facility] Comment on above: Performed By: #### C BC ####[facility] Iohgoozmkl279[address] [place], [place] [address]Dr. Soniya Chi LYMPH # 0.8 103/ul Critically low 1.2-3.8 [facility] Comment on above: Performed By: #### C BC ####[facility] Nffwkvtimc55[address] [place], [place] [address]Dr. Soniya Chi Lymphocytes/100 WBC (Bld) 16.1 % Critically low 20.5-60.0 [facility] Comment on above: Performed By: #### C BC ####[facility] Cqlrgulkse9[address] [place] [address]DrKarolina Chi MANUAL DIFF REQ NO Normal [facility] Comment on above: Performed By: #### C BC ####[facility] Qvyseltkmr3726 [place] [address]Dr. Soniya Chi MCH (RBC) [Entitic mass] 30.3 pg Normal 26.7-34.0 [facility] Comment on above: Performed By: #### C BC ####[facility] Jrhothwcsf57[address] [place], [place] [address]Dr. Soniya Chi MCHC (RBC) [Mass/Vol] 32.7 g/dL Normal 29.9-35.2 [facility] Comment on above: Performed By: #### C BC ####[facility] Dmipaghxub084[address] [place], [place] [address]Dr. Soniya Chi MCV (RBC) [Entitic vol] 92.9 fL Normal 81.0-99.0 [facility] Comment on above: Performed By: #### C BC ####[facility] Xaabisgsbe[address] [place], [place] [address]Dr. Soniya Chi MONO # 0.4 103/ul Normal 0.3-0.8 [facility] Comment on above: Performed By: #### C BC ####[facility] Hbhrmcaequ285[address] [place], [place] [address]Dr. Soniya Chi Monocytes/100 WBC (Bld) 8.1 % Normal 1.7-12.0 [facility] Comment on above: Performed By: #### C BC ####[facility] Onuofgpdtg8460[address] [place], [place] [address]DrKarolina Chi NEUT # 3.6 103/ul Normal 1.4-6.5 [facility] Comment on above: Performed By: #### C BC ####[facility] Iphhpxxlwb1930[address] [place], [place] [address]DrKarolina Chi Neutrophils/100 WBC (Bld) 74.6 % Normal 43.0-75.0 [facility] Comment on above: Performed By: #### C BC ####[facility] Eginreuypf85[address] [place] [address]Dr. Soniya Chi Platelet mean volume (Bld) [Entitic vol] 10.6 fL Normal 9.5-13.5 [facility] Comment on above: Performed By: #### C BC ####[facility] Zuderznfvy5[address] [place] [address]Dr. Soniya Chi PLT 116 103/ul Critically low 150-450 [facility] Comment on above: Performed By: #### C BC ####[facility] Tmffszcpsl[address] [place], [place] [address]Dr. Soniya Chi RBC 3.23 106/ul Critically low 4.20-5.40 [facility] Comment on above: Performed By: #### C BC ####[facility] Jtpljryala[address] [place], [place] [address]Dr. Soniya Chi WBC 4.8 103/ul Normal 4.0-11.[address] [facility] Comment on above: Performed By: #### C BC ####[facility] Uljvxitrxd267[address] [place], [place] [address]Dr. Soniya Chi CULTURE URINEon 08-17-2022 CULTURE URINE Normal [facility] Comment on above: Performed By: #### U RCX ####[facility] Qaryjuytoe3025[address] [place], [place] [address]Dr. Soniya Chi ACETONE SERUMon 08-16-2022 ACETONE Negative Normal NEGATIVE [facility] Comment on above: Performed By: #### A CETON ####[facility] Szociymoxv037[address] [place], [place] [address]Dr. Soniya Chi AMMONIAon 08-16-2022 Ammonia (P) [Mass/Vol] ug/dL Critically low 11-[address] [facility] Comment on above: Performed By: #### A MM ####[facility] Wbpqtipzjh9[address] [place], [place] [address]Dr. Soniya Chi CBC AUTO DIFFon 08-16-2022 BASO # 0.0 103/ul Normal 0.0-0.1 [facility] Comment on above: Performed By: #### C BC ####[facility] Onkljgaavk06[address] [place], [place] [address]Dr. Soniya Chi Basophils/100 WBC (Bld) 0.2 % Normal 0.2-2.0 [facility] Comment on above: Performed By: #### C BC ####[facility] Cwftgjkopx576[address] [place], [place] [address]Dr. Soniya Chi EO # 0.1 103/ul Normal 0.0-0.7 [facility] Comment on above: Performed By: #### C BC ####[facility] Pknoafppjp025[address] [place], [place] [address]Dr. Soniya Chi Eosinophils/100 WBC (Bld) 1.0 % Normal 0.9-7.0 [facility] Comment on above: Performed By: #### C BC ####[facility] Kfmdhqulyv[address] [place], [place] [address]Dr. Soniya Chi Erythrocyte distribution width (RBC) [Ratio] 15.3 % Critically high 11.0-15.0 [facility] Comment on above: Performed By: #### C BC ####[facility] Oumqpizvql[address] [place], [place] [address]Dr. Soniya Chi Hematocrit (Bld) [Volume fraction] 31.2 % Critically low 36.0-48.0 [facility] Comment on above: Performed By: #### C BC ####[facility] Zummbfqlfl9[address] [place], [place] [address]Dr. Soniya Chi Hemoglobin (Bld) [Mass/Vol] 10.3 g/dL Critically low 12.0-16.0 [facility] Comment on above: Performed By: #### C BC ####[facility] Bdjqmekrsj95[address] [place], [place] [address]Dr. Soniya Chi IG # 0.01 10e3/ul Normal 0.00-0.[address] [facility] Comment on above: Performed By: #### C BC ####[facility] Lckgytiwdq6439 [place] [address]Dr. Gypsyjuan Chi IG % 0.2 % Normal 0.0-0.5 [facility] Comment on above: Performed By: #### C BC ####[facility] Edmumgvbrz7[address] [place] [address]Dr. Soniya Alon LYMPH # 0.8 103/ul Critically low 1.2-3.8 [facility] Comment on above: Performed By: #### C BC ####[facility] Crtsghroor4572 [place] [address]Dr. Gypsyjuan Chi Lymphocytes/100 WBC (Bld) 14.5 % Critically low 20.5-60.[address] [facility] Comment on above: Performed By: #### C BC ####[facility] Zupcgcawyz80[address] [place] [address]Dr. Soniya Chi MANUAL DIFF REQ NO Normal [facility] Comment on above: Performed By: #### C BC ####[facility] Rzglzukdjj2319 [place] [address]Dr. Soniya Alon MCH (RBC) [Entitic mass] 30.7 pg Normal 26.7-34.[address] [facility] Comment on above: Performed By: #### C BC ####[facility] [address]qwibqtoq97[address] [place], [place] [address]Dr. Soniya Chi MCHC (RBC) [Mass/Vol] 33.0 g/dL Normal 29.9-35.2 [facility] Comment on above: Performed By: #### C BC ####[facility] Vnbxmswbcb47[address] [place] [address]Dr. Soniya Chi MCV (RBC) [Entitic vol] 93.1 fL Normal 81.0-99.0 [facility] Comment on above: Performed By: #### C BC ####[facility] Nlseiudfcc[address] [place], [place] [address]Dr. Soniya Chi MONO # 0.3 103/ul Normal 0.3-0.[address] [facility] Comment on above: Performed By: #### C BC ####[facility] Lnxhgmgfof9[address] [place] [address]Dr. Soniya Chi Monocytes/100 WBC (Bld) 5.7 % Normal 1.7-12.0 [facility] Comment on above: Performed By: #### C BC ####[facility] Jgpkgbnguk4099 [place] [address]Dr. Soniya Chi NEUT # 4.6 103/ul Normal 1.4-6.5 [facility] Comment on above: Performed By: #### C BC ####[facility] Zlazrczkrd8658 [place] [address]Dr. Soniya Chi Neutrophils/100 WBC (Bld) 78.4 % Critically high 43.0-75.[address] [facility] Comment on above: Performed By: #### C BC ####[facility] Tvkwrqmpnn4587 [place] [address]Dr. Soniya Chi Platelet mean volume (Bld) [Entitic vol] 10.3 fL Normal 9.5-13.5 [facility] Comment on above: Performed By: #### C BC ####[facility] Ssznilbxgv5329 [place] [address]Dr. Soniya Chi PLT 123 103/ul Critically low 150-450 [facility] Comment on above: Performed By: #### C BC ####[facility] Haswaravjk3168 [place] [address]Dr. Soniya Chi RBC 3.35 106/ul Critically low 4.20-5.40 [facility] Comment on above: Performed By: #### C BC ####[facility] Zuzwzukzhi8525 [place] [address]Dr. Soniya Chi WBC 5.8 103/ul Normal 4.0-11.[address] [facility] Comment on above: Performed By: #### C BC ####[facility] Cqschiwnoi3867 [place] [address]Dr. Soniya Chi CPKon 08-16-2022 CK [Catalytic activity/Vol] 32 U/L Normal 26-[address] [facility] Comment on above: Performed By: #### T SH, CK, HSTROPN, CMP ####[facility] Hrhfmbyybi[address] [place], [place] [address]No. Soniya Cih CT STROKE HEAD WOon 08-17-19 CT STROKE HEAD WO Normal [facility] CULTURE BLOODon 08-16-2022 Microscopic examination of blood, culture Culture Observations: NO GROWTH AT [address] [facility] Comment on above: Performed By: #### B LDCX1 ####[facility] Tqqjxybxxj6[address] [place], [place] [address]Zv. Gypsyjuan Chi Microscopic examination of blood, culture Culture Observations: NO GROWTH AT [address] [facility] Comment on above: Performed By: #### B LDCX2 ####[facility] Ojpusnxqqi2460 [place], [place] [address]Ek. Soniya Chi Covid-19 PCR (CVDTBH)on 07-31 SARS-CoV-2 (COVID-19) RNA DORIAN+probe Ql (Unsp spec) Not detected Normal NOT DETECTED [facility] Comment on above: Result Comment: When diagnostic [...] for this test is supported by the [place] of Health and Human Service's declaration that [...] be used). Performed By: #### C VDTBH ####[facility] Rhqshegpvy7059 [place], [place] [address]Xc. Soniya Chi DRUG SCREEN RAPID (URINE)on 08-16-2022 AMP Negative Normal NEGATIVE [facility] Comment on above: Performed By: #### E RUR, DRUGRPD ####[facility] Jmnspiupjd7063 [place] [phone]. Gypsyjuan Chi BAR Negative Normal NEGATIVE [facility] Comment on above: Performed By: #### E RUR, DRUGRPD ####[facility] [address]cfkeplkga[address] [place], [place] [address]Dr. Soniya Chi BUP Negative Normal NEGATIVE [facility] Comment on above: Performed By: #### E RUR, DRUGRPD ####[facility] Tnjkynqcwd[address] [place], [place] [address]Dr. Soniya Chi BZO Negative Normal NEGATIVE [facility] Comment on above: Performed By: #### E RUR DRUGRPD ####[facility] Jkrfhoirww[address] [place], [place] [address]Dr. Soniya Chi MARIAH Negative Normal NEGATIVE [facility] Comment on above: Performed By: #### E RUR, DRUGRPD ####[facility] Qbasmegfun18[address] [place], [place] [address]Dr. Soniya Chi CUT-OFFS SEE BELOW Normal [facility] Comment on above: Result Comment: AMP (Amphetamine): 500ng/mL, BAR (Barbituates): 200 ng/mL, BZO (Benzodiazepines): 150 ng/mL, BUP (Buprenorphine): 10 ng/mL, MARIAH (Cocaine): 150 ng/mL, mAMP (Methamphetamine): 500 ng/mL, MTD (Methadone): 200 ng/mL, OPI (Opiates): 100 ng/mL, OXY (Oxycodone): 100 ng/mL, PCP (Phencyclidine): 25 ng/mL, PPX (Propoxyphene): 300 ng/mL, THC (Cannabinoids): 50 ng/mL, TCA (Trycyclic Antidepressants): 300 ng/mL Performed By: #### E RUR, DRUGRPD ####[facility] Tquhrfsyhl[address] [place], [place] [address]Dr. Soniya Chi DRUG CUT HEADER DRUG CLASS TEST SYSTEM CUT-OFF CONCENTRATIONS ARE FOLLOWS: Normal [facility] Comment on above: Performed By: #### E RUR, DRUGRPD ####[facility] Xnneegyelp6840 [place] [address]Dr. Soniya Chi mAMP Negative Normal NEGATIVE [facility] Comment on above: Performed By: #### E RUR, DRUGRPD ####[facility] Xmfqyfrenj[address] [place], [place] [address]Dr. Soniya Chi MTD Negative Normal NEGATIVE [facility] Comment on above: Performed By: #### E RUR, DRUGRPD ####[facility] Qhdkxgiuil[address] [place], [place] [address]Dr. Soniya Chi OPI Negative Normal NEGATIVE [facility] Comment on above: Performed By: #### E RUR, DRUGRPD ####[facility] [address]tlpaleqvd8[address] [place], [place] [address]Dr. Yijuan Chi OXY Negative Normal NEGATIVE [facility] Comment on above: Performed By: #### E RUR, DRUGRPD ####[facility] Wveawhcusi10[address] [place], [place] [address]Dr. Soniya Chi PCP Negative Normal NEGATIVE [facility] Comment on above: Performed By: #### E RUR, DRUGRPD ####[facility] Hoyuwhfasi[address] [place], [place] [address]Dr. Soniya Chi PPX Negative Normal NEGATIVE [facility] Comment on above: Performed By: #### E RUR, DRUGRPD ####[facility] Rtukmmsrmp[address] [place], [place] [address]Dr. Soniya Chi TCA Negative Normal NEGATIVE [facility] Comment on above: Performed By: #### E RUR, DRUGRPD ####[facility] Aalkoefpyc158[address] [place], [place] [address]Dr. Soniya Chi THC Negative Normal NEGATIVE [facility] Comment on above: Performed By: #### E RUR, DRUGRPD ####[facility] Nggxssrkbn906[address] [place], [place] [address]Dr. Soniya Chi ER URINE PROFILEon 3 Bilirubin Ql (U) Negative Normal NEGATIVE [facility] Comment on above: Performed By: #### E RUR, DRUGRPD ####[facility] Yajebekggw359[address] [place], [place] [address]Dr. Soniya Chi Clarity (U) CLEAR Normal CLEAR [facility] Comment on above: Performed By: #### E RUR, DRUGRPD ####[facility] Unjkkluaht[address] [place], [place] [address]Dr. Gypsyjuan Chi Color (U) LT. YELLOW Normal YELLOW [facility] Comment on above: Performed By: #### E RUR, DRUGRPD ####[facility] Zaebhbllpl164[address] [place], [place] [address]Dr. Gypsyjuan Chi ERUAHD A micrscopic examination will be performed if indicated. Normal [facility] Comment on above: Performed By: #### E RUR, DRUGRPD ####[facility] Xaurjchlpj[address] [place], [place] [address]Dr. Soniya Chi Glucose Ql (U) Negative Normal NEGATIVE [facility] Comment on above: Performed By: #### E RUR, DRUGRPD ####[facility] Xmuyenekaz[address] [place], [place] [address]Dr. Soniya Chi Hemoglobin Ql (U) Negative Normal NEGATIVE [facility] Comment on above: Performed By: #### E RUR, DRUGRPD ####[facility] Smwtaelnlp[address] [place], [place] [address]Dr. Soniya Chi Ketones Ql (U) Negative Normal NEGATIVE [facility] Comment on above: Performed By: #### E RUR, DRUGRPD ####[facility] [address]wodjbbhc[address] [place], [place] [address]Dr. Soniya Chi LEUKOCYTES Negative Normal NEGATIVE [facility] Comment on above: Performed By: #### E RUR, DRUGRPD ####[facility] Mirhfissnv[address] [place], [place] [address]Dr. Soniya Chi Nitrite Ql (U) Negative Normal NEGATIVE [facility] Comment on above: Performed By: #### E RUR, DRUGRPD ####[facility] Lujtasumup[address] [place], [place] [address]Dr. Soniya Chi pH (U) 7.0 [pH] Normal 5-[address] [facility] Comment on above: Performed By: #### E RUR, DRUGRPD ####[facility] Eiktqgrknx[address] [place] [address]Dr. Soniya Chi SPEC GRAVITY 1.005 Normal 1.005-<=1.0 25 [facility] Comment on above: Performed By: #### Benoit CARTER DRUGRPD ####[facility] Agvoeqegic[address] [place] [address]Dr. Soniya Chi UA PROTEIN Negative Normal NEGATIVE/ TRACE [facility] Comment on above: Performed By: #### Benoit CARTER DRUGRPD ####[facility] Lqoeoabeco54[address] [place] [address]Dr. Soniya Chi UR MICRO IND NOT INDICATED Normal [facility] Comment on above: Performed By: #### Benoit CARTER DRUGRPD ####[facility] Bxfwmpjgxx[address] [place], [place] [address]Dr. Soniya Chi Urobilinogen Qn (U) 0.2 {Casimiro'U}/dL Normal 0.2 - 1. 0 [facility] Comment on above: Performed By: #### Benoit CARTER DRUGRPD ####[facility] Gcumcbdoit[address] [place], [place] [address]Dr. Soniya Alon FREE T3on 08-16-2022 FREE T3 2.61 pg/mlL Normal 2.18-3.98 [facility] Comment on above: Performed By: #### F T3 ####[facility] Gjcncmpkmq[address] [place], [place] [address]Dr. Gypsyjuan Alon FREE T4on 08-16-2022 Free T4 [Mass/Vol] 0.82 ng/dL Normal 0.76-1.46 [facility] Comment on above: Performed By: #### F T4 ####[facility] Pwqutrirmc[address] [place], [place] [address]Dr. Soniya Chi LACTATE/LACTIC ACIDon 2022 Lactate [Moles/Vol] 1.1 mmol/L Normal 0.4-2.0 [facility] Comment on above: Performed By: #### L ACT ####[facility] Dpfzlwiron[address] [place], [place] [address]Dr. Soniya Chi PH VENOUS BLOODon 08-16-2022 PCO2 VENOUS 58.3 mmHg Critically high 40.0-52.0 [facility] Comment on above: Performed By: #### P HVEN ####[facility] Rpahgizwby8[address] [place] [address]Dr. Soniya Chi pH VENOUS 7.365 Normal 7.330-7.430 [facility] Comment on above: Performed By: #### P HVEN ####[facility] Edcjflcxyi3607 [place] [address]Dr. Soniya Chi PROF 14(COMP METB)on 023 Albumin [Mass/Vol] 3.6 g/dL Normal 3.4-5.0 [facility] Comment on above: Performed By: #### T SH, CK, HSTROPN, CMP ####[facility] Pjdmddvvtk4749 [place] [address]Dr. Soniya Chi Albumin/Globulin [Mass ratio] 1.0 {ratio} Normal [facility] Comment on above: Performed By: #### T SH, CK, HSTROPN, CMP ####[facility] Qyldbczrfy0961 [place] [address]Dr. Soniya Chi ALP [Catalytic activity/Vol] 115 U/L Normal 46-[address] [facility] Comment on above: Performed By: #### T SH, CK, HSTROPN, CMP ####[facility] Ndqszaoyru20[address] [place] [address]Dr. Soniya Chi ALT [Catalytic activity/Vol] 48 U/L Normal 14-[address] [facility] Comment on above: Performed By: #### T SH, CK, HSTROPN, CMP ####[facility] Apwdcmiygo40[address] [place] [address]Dr. Soniya Chi Anion gap [Moles/Vol] 9.7 mmol/L Normal [facility] Comment on above: Performed By: #### T SH, CK, HSTROPN, CMP ####[facility] Lijstbzbml6473 [place] [address]Dr. Soniya Chi AST [Catalytic activity/Vol] 26 U/L Normal 15-37 [facility] Comment on above: Performed By: #### T SH, CK, HSTROPN, CMP ####[facility] Qrvpnwsdcy3871 [place] [address]Dr. Soniya Chi Bilirubin [Mass/Vol] 0.7 mg/dL Normal 0.2-1.0 [facility] Comment on above: Performed By: #### T SH, CK, HSTROPN, CMP ####[facility] Hgutbnhvkm7877 [place] [address]Dr. Soniya Chi Calcium [Mass/Vol] 10.1 mg/dL Normal 8.5-10.1 [facility] Comment on above: Performed By: #### T SH, CK, HSTROPN, CMP ####[facility] Uzqyecevuf9[address] [place] [address]Dr. Soniya Chi Chloride [Moles/Vol] 104 mmol/L Normal 98-[address] [facility] Comment on above: Performed By: #### T SH, CK, HSTROPN, CMP ####[facility] Mpblljfcbc7227 [place] [address]Dr. Soniya Chi CO2 [Moles/Vol] 34.6 mmol/L Critically high 21.0-32.0 [facility] Comment on above: Performed By: #### T SH, CK, HSTROPN, CMP ####[facility] Hnljctzdcy[address] [place], [place] [address]Dr. Soniya Chi Creatinine [Mass/Vol] 1.27 mg/dL Critically high 0.55-1.[address] [facility] Comment on above: Performed By: #### T SH, CK, HSTROPN, CMP ####[facility] Gbcxbzwlwt6862 [place] [address]Dr. Soniya Chi EGFR-AF SRI LANKAN 51 mL/min/1.73m2 Critically low >=[address] [facility] Comment on above: Performed By: #### T SH, CK, HSTROPN, CMP ####[facility] Ephixbxiye0064 [place] [address]Dr. Yilan Chi EGFR-NON AF SRI LANKAN 42 mL/min/1.73m2 Critically low >=[address] [facility] Comment on above: Performed By: #### T SH, CK, HSTROPN, CMP ####[facility] Fmgycpecju[address] [place] [address]Dr. Soniya Chi Globulin (S) [Mass/Vol] 3.6 g/dL Normal [facility] Comment on above: Performed By: #### T SH, CK, HSTROPN, CMP ####[facility] Idwrllscjs7588 [place] [address]Dr. Soniya Chi Glucose [Mass/Vol] 100 mg/dL Normal 74-106 [facility] Comment on above: Performed By: #### T SH, CK, HSTROPN, CMP ####[facility] Lslnjdujnw3314 [place] [address]Dr. Soniya Chi Potassium [Moles/Vol] 4.3 mmol/L Normal 3.5-5.[address] [facility] Comment on above: Performed By: #### T SH, CK, HSTROPN, CMP ####[facility] Vhhbssjnud5084 [place] [address]Dr. Soniya Chi Protein [Mass/Vol] 7.2 g/dL Normal 6.4-8.2 [facility] Comment on above: Performed By: #### T SH, CK, HSTROPN, CMP ####[facility] Jkhfgkoeuw2484 [place] [address]Dr. Soniya Chi Sodium [Moles/Vol] 144 mmol/L Normal 136-145 [facility] Comment on above: Performed By: #### T SH, CK, HSTROPN, CMP ####[facility] Qfceazcmxm5960 [place] [address]Dr. Soniya Chi Urea nitrogen [Mass/Vol] 24.0 mg/dL Critically high 7.0-18.[address] [facility] Comment on above: Performed By: #### T SH, CK, HSTROPN, CMP ####[facility] Ayzxykfxiw5134 [place] [address]Dr. Yilan Chi Urea nitrogen/Creatinine [Mass ratio] 18.9 mg/mg Normal [facility] Comment on above: Performed By: #### T SH, CK, HSTROPN, CMP ####[facility] Ijffozivgi1218 [place] [address]Dr. Soniya Chi PROTIMEon 08-16-2022 INR Coag (PPP) [Relative time] 0.97 {INR} Normal [facility] Comment on above: Performed By: #### P TT, PT ####[facility] Oqulkoprnb1822 [place] [address]Dr. Soniya Chi INR GUIDELINES SEE BELOW Normal [facility] Comment on above: Result Comment: SHARON RED INR: 2.0 - 3.0 CONDITIONS NOT LISTED BELOW 2.5 - 3.5 FOR PROSTHETIC HEART VALVE REPLACEMENT 2.5 - 3.5 RECURRENT THROMBOSIS Performed By: #### P TT, PT ####[facility] Wshirvyhuf[address] [place], [place] [address]Dr. Soniya Chi PT Coag (PPP) [Time] 10.3 s Normal 9.0-11.6 [facility] Comment on above: Performed By: #### P TT, PT ####[facility] Llzmezzenu7757 [place] [address]Dr. Soniya Chi PTTon 08-16-2022 aPTT Coag (Bld) [Time] 33.1 s Normal 22.3-36.2 [facility] Comment on above: Performed By: #### P TT, PT ####[facility] Ffblpsgshp[address] [place], [place] [address]Dr. juan Chi TROPONIN, HIGH SENSITIVITYon 08-16-2022 HSTROP 9.8 pg/mL Normal 4.0-51.3 [facility] Comment on above: Result Comment: CUT- OFF POINTS HAVE BEEN ESTABLISHED BASED ON THE FOURTH UNIVERSAL DEFINITIONS OF MYOCARDIALINFARCTION. THE UPPER REFERENCE LIMIT (URL) OF TROPONIN, DEFINED THE 99TH PERCENTILE OFcTnI DISTRIBUTION IN A REFERENCE POPULATION, HAS BEEN CONFIRMED THE DECISION THRESHOLDFOR [place] DIAGNOSIS. Performed By: #### T SH, CK, HSTROPN, CMP ####[facility] Iecvphfdoo8703 [place] [address]Dr. Soniya Chi TSHon 08-16-2022 TSH 7.844 uIU/mL Critically high 0.358-3.740 [facility] Comment on above: Performed By: #### T SH, CK, HSTROPN, CMP ####[facility] C[address]judpja[address] [place], [place] [address]Dr. Soniya Chi XR CHEST 1 Von 08-16-2022 XR CHEST [address] [facility] UA (CLEAN/CATCH) FOOD AND BEVERAGE DIRECTOR/MICRO I F IND.on 08-15-2022 Bilirubin Ql (U) Negative Normal NEGATIVE [facility] Comment on above: Performed By: #### U ACSIND, ICRO ####[facility] Cleudazhvw[address] [place], [place] [address]Dr. Gypsyjuan Alon Clarity (U) CLEAR Normal CLEAR [facility] Comment on above: Performed By: #### U ACSLUIS, ICRO ####[facility] Fsqelzdgdq[address] [place], [place] [address]Dr. Gypsyjuan Alon Color (U) LT. YELLOW Normal YELLOW [facility] Comment on above: Performed By: #### U ACSLUIS, ICRO ####[facility] Tgbfsjxmki[address] [place], [place] [address]Dr. Gypsyjuan Alon Glucose Ql (U) Negative Normal NEGATIVE [facility] Comment on above: Performed By: #### U ACSLUIS, ICRO ####[facility] Ynolvtnjfw26[address] [place], [place] [address]Dr. Soniya Chi Hemoglobin Ql (U) Negative Normal NEGATIVE [facility] Comment on above: Performed By: #### U ACSIND, UMICRO ####[facility] Eeengmcacj[address] [place], [place] [address]Dr. Soniya Chi Ketones Ql (U) Negative Normal NEGATIVE [facility] Comment on above: Performed By: #### U ACSIND, UMICRO ####[facility] Bnsjiellmy[address] [place], [place] [address]Dr. Soniya Chi LEUKOCYTES MODERATE Abnormal NEGATIVE [facility] Comment on above: Performed By: #### U ACSIND, UMICRO ####[facility] Hzemhaxyeh5967 [place] [address]Dr. Soniya Chi Nitrite Ql (U) Negative Normal NEGATIVE [facility] Comment on above: Performed By: #### U ACSLUIS, UMICRO ####[facility] Abycdewfpy6418 [place] [address]Dr. Soniya Chi pH (U) 5.5 [pH] Normal 5-[address] [facility] Comment on above: Performed By: #### U ACSLUIS, UMICRO ####[facility] Pexrbomfyd1372 [place] [address]Dr. Soniya Chi SPEC GRAVITY <=1.005 Abnormal 1.005-<=1.0 25 [facility] Comment on above: Performed By: #### U PRASHANTH UMICRO ####[facility] Tszqjjcfkl[address] [place], [place] [address]Dr. Soniya Chi UA PROTEIN Negative Normal NEGATIVE/ TRACE [facility] Comment on above: Performed By: #### U PRASHANTH UMICRO ####[facility] [address]furvhsa[address] [place], [place] [address]Dr. Gypsyjuan Chi UR MICRO IND INDICATED Normal [facility] Comment on above: Performed By: #### U PRASHATNH UMICRO ####[facility] [address]voveqsunw[address] [place], [place] [address]Dr. Soniya Chi Urobilinogen Qn (U) 0.2 {Casimiro'U}/dL Normal 0.2 - 1. 0 [facility] Comment on above: Performed By: #### U ACSLUIS, UMICRO ####[facility] [address]yzsn[address] [place], [place] [address]Dr. Soniya Chi URINE MICROSCOPIC ONLYon BACTERIA TRACE Abnormal NONE SEEN [facility] Comment on above: Performed By: #### U ACSLUIS UMICRO ####[facility] Nfycnciixx[address] [place], [place] [address]Dr. Soniya Chi Bacteria identified Cx Nom (U) INDICATED Normal [facility] Comment on above: Performed By: #### U PRASHANTH UMICRO ####[facility] Wsmigzfdik5597 [place] [address]Dr. Soniya Chi CAST NONE SEEN Normal NONE SEEN [facility] Comment on above: Performed By: #### LUIS RAOICRO ####[facility] Qqeegoosac0260 [place] [address]Dr. Soniya Chi Crystals LM Nom (Urine sed) NONE SEEN Normal NONE SEEN [facility] Comment on above: Performed By: #### LUIS RAOICRO ####[facility] Gksklgmwpn6927 [place] [address]Dr. Soniya Chi Epithelial cells LM Ql (Urine sed) RARE Normal NONE SEEN /RARE [facility] Comment on above: Performed By: #### DENIZ RAORO ####[facility] Htwjhvzujf4394 [place] [address]Dr. Soniya Chi MUCOUS NONE SEEN Normal NONE SEEN [facility] Comment on above: Performed By: #### DENIZ RAORO ####[facility] Zzcijonalz4441 [place] [address]Dr. Soniya Chi RBC NONE SEEN Abnormal 0-[address] [facility] Comment on above: Performed By: #### Shelby ALFORD MATTHEWRO ####[facility] Qkorxuqdxo0083 [place] [address]Dr. Soniya Chi WBC 5-10 Abnormal NONE SEEN [facility] Comment on above: Performed By: #### DENIZ RAORO ####[facility] Qfdwagfwko2081 [place] [address]Dr. Soniya Chi Lab Reportson 08-14-2022 Lab Reports [id number] .[id number]:127 Normal [facility] Physician Referralon 023 Physician Referral [id number] .[id number]:127 Normal [facility] CBC AUTO DIFFon 08-13-2022 BASO # 0.0 103/ul Normal 0.0-0.1 [facility] Comment on above: Performed By: #### C BC ####[facility] Cxoimygzzp7493 [place] [address]Dr. Soniya Chi Basophils/100 WBC (Bld) 0.2 % Normal 0.2-2.0 [facility] Comment on above: Performed By: #### C BC ####[facility] D[address]hqkagrg[address] [place], [place] [address]Dr. Soniya Chi EO # 0.1 103/ul Normal 0.0-0.7 [facility] Comment on above: Performed By: #### C BC ####[facility] Ulafwojjmn[address] [place], [place] [address]Dr. Soniya Chi Eosinophils/100 WBC (Bld) 1.0 % Normal 0.9-7.0 [facility] Comment on above: Performed By: #### C BC ####[facility] Zczygtipyg[address] [place], [place] [address]Dr. Soniya Chi Erythrocyte distribution width (RBC) [Ratio] 15.1 % Critically high 11.0-15.0 [facility] Comment on above: Performed By: #### C BC ####[facility] Ztrsrkjpfp[address] [place], [place] [address]Dr. Soniya Chi Hematocrit (Bld) [Volume fraction] 31.1 % Critically low 36.0-48.0 [facility] Comment on above: Performed By: #### C BC ####[facility] [address]qjqpnza[address] [place], [place] [address]Dr. Soniya Chi Hemoglobin (Bld) [Mass/Vol] 10.2 g/dL Critically low 12.0-16.0 [facility] Comment on above: Performed By: #### C BC ####[facility] Rtdhryyopw[address] [place], [place] [address]Dr. Soniya Chi IG # 0.01 10e3/ul Normal 0.00-0.03 [facility] Comment on above: Performed By: #### C BC ####[facility] [address] [place], [place] [address]Dr. Soniya Chi IG % 0.2 % Normal 0.0-0.5 [facility] Comment on above: Performed By: #### C BC ####[facility] Msfwdsrdgy4745 [place] [address]Dr. Soniya Chi LYMPH # 1.1 103/ul Critically low 1.2-3.8 [facility] Comment on above: Performed By: #### C BC ####[facility] Enpyasbekq[address] [place] [address]Dr. Soniya Chi Lymphocytes/100 WBC (Bld) 22.5 % Normal 20.5-60.0 [facility] Comment on above: Performed By: #### C BC ####[facility] Scmxlbrjpj7126 [place] [address]Dr. Soniya Chi MANUAL DIFF REQ NO Normal [facility] Comment on above: Performed By: #### C BC ####[facility] Vhxyqvoyea4819 [place] [address]Dr. Soniya Chi MCH (RBC) [Entitic mass] 30.5 pg Normal 26.7-34.0 [facility] Comment on above: Performed By: #### C BC ####[facility] Afhmeascqh3014 [place] [address]Dr. Soniya Chi MCHC (RBC) [Mass/Vol] 32.8 g/dL Normal 29.9-35.2 [facility] Comment on above: Performed By: #### C BC ####[facility] Toojdqshdc8621 [place] [address]DrKarolina Chi MCV (RBC) [Entitic vol] 93.1 fL Normal 81.0-99.0 [facility] Comment on above: Performed By: #### C BC ####[facility] Ystzsnostw3838 [place] [address]DrKarolina Chi MONO # 0.3 103/ul Normal 0.3-0.8 [facility] Comment on above: Performed By: #### C BC ####[facility] Ffqnvrzvfv3076 [place] [address]Dr. Soniya Chi Monocytes/100 WBC (Bld) 6.6 % Normal 1.7-12.0 [facility] Comment on above: Performed By: #### C BC ####[facility] Jcnchgoigi4220 [place] [address]Dr. Soniya Chi NEUT # 3.5 103/ul Normal 1.4-6.5 [facility] Comment on above: Performed By: #### C BC ####[facility] Qojlymongm0375 [place] [address]Dr. Soniya Chi Neutrophils/100 WBC (Bld) 69.5 % Normal 43.0-75.0 [facility] Comment on above: Performed By: #### C BC ####[facility] Afghltbqhs9033 [place] [address]Dr. Soniya Chi Platelet mean volume (Bld) [Entitic vol] 10.3 fL Normal 9.5-13.5 [facility] Comment on above: Performed By: #### C BC ####[facility] Lcaagsunjf1916 [place] [address]Dr. Soniya Chi PLT 116 103/ul Critically low 150-450 [facility] Comment on above: Performed By: #### C BC ####[facility] Yzkgafnjre3202 [place] [address]Dr. Soniya Chi RBC 3.34 106/ul Critically low 4.20-5.40 [facility] Comment on above: Performed By: #### C BC ####[facility] Hdpmkzgodh7111 [place] [address]Dr. Soniya Chi WBC 5.0 103/ul Normal 4.0-11.0 [facility] Comment on above: Performed By: #### C BC ####[facility] Btfauoagro6796 [place] [address]Dr. 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 Ordered: [facility] [place] External Ambulatory Referral 3. Anxiety disorder (F41.9: Anxiety disorder, unspecified) Secondary to the psychosis and memory loss. 4. HTN (hypertension) (I10: Essential (primary) hypertension) Controlled continue bisoprol and low salt diet wioth exercise 5. Spasm of muscle (M62.838: Other muscle spasm) Possible cause of gait disordfer, medicine something neurological will refer to neurology. Ordered: [facility] [place] External Ambulatory Referral Other fatigue (R53.83: Other fatigue) Secondary to all of the abover. Ordered: Basic Metabolic Panel [facility] [place] External Ambulatory Referral Follow-up [...] and adenoidectomy. Medications amitriptyline 10 mg Tab bisoprolol-hydrochlor othiazide 2.5 mg-6.25 mg Tab, 1 tab(s), Oral, Daily bisoprolol-hydrochlor othiazide 2.5 mg-6.25 mg Tab, Not taking: duplicate [...] Immunizations Vaccin (more content not included)... Normal [facility] Comment on above: Result Comment: Elec tronically Signed By: FANNY ROPER, MELVA Laboy\.br\Date and Time Signed: 08/13/22 15:10 EDT LIVER PROFILEon 08-13-2022 Albumin [Mass/Vol] 3.6 g/dL Normal 3.4-5.0 [facility] Comment on above: Performed By: #### SHANE SARAH ####[facility] Uloxuhldrh[address] [place], [place] [address]Dr. Soniya Chi Albumin/Globulin [Mass ratio] 1.0 {ratio} Normal [facility] Comment on above: Performed By: #### Yue AH BMP ####[facility] Jwqxsziijo139[address] [place], [place] [address]Dr. Soniya Chi ALP [Catalytic activity/Vol] 111 U/L Normal 46-[address] [facility] Comment on above: Performed By: #### Yue HA BMP ####[facility] Jrhxzfadud[address] [place], [place] [address]Dr. Soniya Chi ALT [Catalytic activity/Vol] 46 U/L Normal 14-59 [facility] Comment on above: Performed By: #### Yue HA BMP ####[facility] Fioborbjzd0597 [place] [address]Dr. Soniya Chi AST [Catalytic activity/Vol] 17 U/L Normal 15-37 [facility] Comment on above: Performed By: #### Yue HA, BMP ####[facility] Dxzmrbmuly311[address] [place], [place] [address]Dr. Soniya Chi BILI, CONJUGATED 0.1 mg/dL Normal 0.0-0.2 [facility] Comment on above: Performed By: #### Yue HA, BMP ####[facility] Unbcfrhwow[address] [place], [place] [address]Dr. Soniya Chi Bilirubin [Mass/Vol] 0.7 mg/dL Normal 0.2-1.0 [facility] Comment on above: Performed By: #### Yue HA, BMP ####[facility] Mapscysmzu656[address] [place], [place] [address]Dr. Soniya Chi Globulin (S) [Mass/Vol] 3.5 g/dL Normal [facility] Comment on above: Performed By: #### L LELAND, BMP ####[facility] Oxhltjcbwa[address] [place], [place] [address]Dr. Soniya Chi Protein [Mass/Vol] 7.1 g/dL Normal 6.4-8.2 [facility] Comment on above: Performed By: #### Yue HA, BMP ####[facility] Pnbusjrduf[address] [place], [place] [address]Dr. Soniya Chi PROF CHEM 8 (BAS METB)on Anion gap [Moles/Vol] 6.8 mmol/L Normal [facility] Comment on above: Performed By: #### Yue HA, BMP ####[facility] Lntmzhblkq[address] [place], [place] [address]Dr. Soniya Chi Calcium [Mass/Vol] 10.1 mg/dL Normal 8.5-10.1 [facility] Comment on above: Performed By: #### Yue HA, BMP ####[facility] Cupohhuvti[address] [place], [place] [address]Dr. Soniya Chi Chloride [Moles/Vol] 105 mmol/L Normal 98-[address] [facility] Comment on above: Performed By: #### L IVKATHY, BMP ####[facility] [address]osvfopll[address] [place], [place] [address]Dr. Soniya Chi CO2 [Moles/Vol] 32.4 mmol/L Critically high 21.0-32.0 [facility] Comment on above: Performed By: #### L IVKATHY, BMP ####[facility] [address]hw[address]jsoz[address] [place], [place] [address]Dr. Soniya Chi Creatinine [Mass/Vol] 1.25 mg/dL Critically high 0.55-1.02 [facility] Comment on above: Performed By: #### L IVER, BMP ####[facility] Zkxeskogot5562 [place] [address]Dr. Soniya Chi EGFR-AF SRI LANKAN 52 mL/min/1.73m2 Critically low >=[address] [facility] Comment on above: Performed By: #### L IVER, BMP ####[facility] Oxudsoqnsl7345 [place] [address]Dr. Soniya Chi EGFR-NON AF SRI LANKAN 43 mL/min/1.73m2 Critically low >=60 [facility] Comment on above: Performed By: #### L IVER, BMP ####[facility] Unkjvpexmz2981 [place] [address]Dr. Soniya Chi Glucose [Mass/Vol] 86 mg/dL Normal 74-106 [facility] Comment on above: Performed By: #### L IVER, BMP ####[facility] [address]xf[address] [place], [place] [address]Dr. Soniya Chi Potassium [Moles/Vol] 3.9 mmol/L Normal 3.5-5.1 [facility] Comment on above: Performed By: #### L IVKATHY, BMP ####[facility] [address]hlq[address] [place], [place] [address]Dr. Soniya Chi Sodium [Moles/Vol] 142 mmol/L Normal 136-145 [facility] Comment on above: Performed By: #### L IVKATHY, BMP ####[facility] Srmtfjqxwb224454 [address] [place], [place] [address]Dr. Soniya Chi [place]rea nitrogen [Mass/Vol] 23.0 mg/dL Critically high 7.0-18.0 [facility] Comment on above: Performed By: #### L IVER, BMP ####[facility] [address] [place], [place] [address]Dr. Soniya Chi Urea nitrogen/Creatinine [Mass ratio] 18.4 mg/mg Normal [facility] Comment on above: Performed By: #### L IVER, BMP ####[facility] [address] [place], [place] [address]Dr. Soniya Chi [facility] Recordon 0 08-07-2022 Outpatient Clinic Record [id number] Normal [facility] Basic Metabolic Panelon 06-02 Anion gap [Moles/Vol] 12.2 mmol/L Normal 6.0-15.0 [facility] Comment on above: Performed By: #### S CONSTANCE ZACARIASID-19 TERE #### [facility] [address] Calcium [Mass/Vol] 9.3 mg/dL Normal 8.2-10.2 [facility] Comment on above: Performed By: #### S CONSTANCE ZACARIASID- TERE #### [facility] [address] Chloride [Moles/Vol] 100 mmol/L Normal 95-114 [facility] Comment on above: Performed By: #### S CONSTANCE ZACARIASID- TERE #### [facility] [address] CO2 [Moles/Vol] 26.6 mmol/L Normal 22.0-30.0 [facility] Comment on above: Performed By: #### S CONSTANCE ZACARIASID- TERE #### [facility] [address] Creatinine [Mass/Vol] 1.30 mg/dL High 0.44-1.03 [facility] Comment on above: Performed By: #### S CONSTANCE ZACARIASID-19 TERE #### [facility] [address] [place] [address] [place] Creatinine Clr Calc Pharmacy 39.93 [facility] Comment on above: Result Comment: PERF ORMED BY: [place] [address] PATHOLOGIST [employer] TRACY DICKERSON M.D. Performed By: #### S CONSTANCE ZACARIASID-19 TERE #### [facility] [address] [place] [address] Estimated GFR ( Emilie 49 Normal [facility] Comment on above: Result Comment: GFR estimated reference range: According to KDOQI guidelines, <60 ml/min/1.73m2 is sufficient to diagnose a patient with chronic kidney disease. Performed By: #### S SANKET ZACARIAS TERE #### [facility] [address] [place] [address] [place] Estimated GFR (Non- Am 41 [facility] Comment on above: Performed By: #### S ALLISON ZACARIAS- TERE #### [facility] [address] [place] [address] [place] Glucose [Mass/Vol] 101 mg/dL High 70-100 [facility] Comment on above: Result Comment: [place] Glucose Reference Range is dependent on time and content of last meal. Glucose of more than 200 mg/dL in a nonstressed, ambulatory subject supports the diagnosis of Diabetes Mellitus. ADA recommended reference range Performed By: #### S ALLISON ZACARIAS- TERE #### [facility] [address] [place] [address] [place] Potassium [Moles/Vol] 3.8 mmol/L Normal 3.5-5.1 [facility] Comment on above: Performed By: #### S SANKET ZACARIAS TERE #### [facility] [address] [place] [id number] [place] Sodium [Moles/Vol] 135 mmol/L Low 136-146 [facility] Comment on above: Performed By: #### S SANKET ZACARIAS TERE #### [facility] [address] [place] [id number] [place] Urea nitrogen [Mass/Vol] 26 mg/dL High 9-23 [facility] Comment on above: Performed By: #### S SANKET ZACARIAS TERE #### [facility] [address] [place] [id number] [place] Creatinine and Glomerular fi ltration rate.predicted panel (S/P/Bld)Ordered By: Marlene Guerra on 06-17-2022 Creatinine [Mass/Vol] 1.30 mg/dL 0.44-1.03 [facility] Estimated glomerular filtrat ion rate (GFR) non- AmericanOrdered By: Marlene Guerra on 06-17-2022 GFR/1.73 sq M.predicted among non-blacks MDRD (S/P/Bld) [Vol rate/Area] 41 mL/Min [facility] No Panel InformationOrdered By: Marlene Guerra on 06-17-2022 Estimated GFR () 49 mL/Min [facility] Comment on above: GFR estimated refere nce range: According to KDOQI guidelines, <60 ml/min/1.73m2 is sufficient to diagnose a patient with chronic kidney disease. Pharmacy Creatinine Clearance (Chem 39.93 [facility] Serum or plasma anion gap de terminationOrdered By: Marlene Guerra on 06-17-2022 Anion gap [Moles/Vol] 12.2 mmol/L 6.0-15.0 [facility] Serum or plasma calcium negin urement (mass/volume)Ordered By: Marlene Guerra on 06-17-2022 Calcium [Mass/Vol] 9.3 mg/dL 8.2-10.2 [facility] Serum or plasma chloride russel surement (moles/volume)Ordered By: Marlene Guerra on 06-17-2022 Chloride [Moles/Vol] 100 mmol/L 95-114 [facility] Serum or plasma glucose negin urement (mass/volume)Ordered By: Marlene Guerra on 06-17-2022 Glucose [Mass/Vol] 101 mg/dL 70-100 [facility] Comment on above: ADA recommended refe rence rangeRandom Glucose Reference Range is dependent on time and content of last meal. Glucose of more than 200 mg/dL in a nonstressed, ambulatory subject supports the diagnosis of Diabetes Mellitus. Serum or plasma potassium me asurement (moles/volume)Ordered By: Marlene Guerra on 06-17-2022 Potassium [Moles/Vol] 3.8 mmol/L 3.5-5.1 [facility] Serum or plasma sodium measu rement (moles/volume)Ordered By: Marlene Guerra on 06-17-2022 Sodium [Moles/Vol] 135 mmol/L 136-146 [facility] Serum or plasma total carbon dioxide measurement (moles/volume)Ordered By: Marlene Guerra on 06-17-2022 CO2 [Moles/Vol] 26.6 mmol/L 22.0-30.0 [facility] Serum or plasma urea nitroge n measurement (mass/volume)Ordered By: Marlene Guerra on 06-17-2022 Urea nitrogen [Mass/Vol] 26 mg/dL 9-23 [facility] Basic Metabolic Panelon 06-02 Anion gap [Moles/Vol] 11.7 mmol/L Normal 6.0-15.0 [facility] Comment on above: Performed By: #### C BC #### [facility] [address] Calcium [Mass/Vol] 9.8 mg/dL Normal 8.2-10.2 [facility] Comment on above: Performed By: #### C BC #### [facility] [address] Chloride [Moles/Vol] 103 mmol/L Normal 95-114 [facility] Comment on above: Performed By: #### C BC #### [facility] [address] CO2 [Moles/Vol] 26.5 mmol/L Normal 22.0-30.0 [facility] Comment on above: Performed By: #### C BC #### [facility] [address] [place] [address] [place] Creatinine [Mass/Vol] 1.44 mg/dL High 0.44-1.03 [facility] Comment on above: Performed By: #### C BC #### [facility] [address] [place] [address] [place] Creatinine Clr Calc Pharmacy 36.05 Normal [facility] Comment on above: Result Comment: PERF ORMED BY: [place] [address] PATHOLOGIST [employer] TRACY DICKERSNO M.D. Performed By: #### C BC #### [facility] [address] [place] [address] [place] Estimated GFR ( Emilie 44 Normal [facility] Comment on above: Result Comment: GFR estimated reference range: According to KDOQI guidelines, <60 ml/min/1.73m2 is sufficient to diagnose a patient with chronic kidney disease. Performed By: #### C BC #### [facility] [address] Estimated GFR (Non- Am 36 [facility] Comment on above: Performed By: #### C BC #### [address] Glucose [Mass/Vol] 94 mg/dL Normal 70-100 [facility] Comment on above: Result Comment: [place] Glucose Reference Range is dependent on time and content of last meal. Glucose of more than 200 mg/dL in a nonstressed, ambulatory subject supports the diagnosis of Diabetes Mellitus. ADA recommended reference range Performed By: #### C BC #### [address] Potassium [Moles/Vol] 4.2 mmol/L Normal 3.5-5.1 [facility] Comment on above: Performed By: #### C BC #### [address] Sodium [Moles/Vol] 137 mmol/L Normal 136-146 [facility] Comment on above: Performed By: #### C BC #### [address] Urea nitrogen [Mass/Vol] 33 mg/dL High 9-23 [facility] Comment on above: Performed By: #### C BC #### [place] [address] [place] Basophils Auto (Bld) [#/Vol] Ordered By: Marlene Guerra on 06-15-2022 Basophils (Bld) [#/Vol] 0.0 10*3/uL 0.0-0.2 [facility] Basophils/100 WBC Auto (Bld) Ordered By: Marlene Guerra on 06-15-2022 Basophils/100 WBC (Bld) 0.5 % . [facility] Complete Blood Count Auto Di ffon 06-15-2022 Basophils (Bld) [#/Vol] 0.0 10*3/uL Normal 0.0-0.2 [facility] Comment on above: Result Comment: PERF ORMED BY: [place] [address] PATHOLOGIST [employer] TRACY DICKERSON M.D. Performed By: #### C BC #### [address] Basophils/100 WBC (Bld) 0.5 % Normal . [facility] Comment on above: Performed By: #### C BC #### [address] Eosinophils (Bld) [#/Vol] 0.0 10*3/uL Normal 0.0-0.45 [facility] Comment on above: Performed By: #### C BC #### [address] Eosinophils/100 WBC (Bld) 0.3 % Normal . [facility] Comment on above: Performed By: #### C BC #### [address] Erythrocyte distribution width (RBC) [Ratio] 15.6 % High 11.9-15.3 [facility] Comment on above: Performed By: #### C BC #### [address] Hematocrit (Bld) [Volume fraction] 34.4 % Normal 34.0-46.4 [facility] Comment on above: Performed By: #### C BC #### [address] Hemoglobin (Bld) [Mass/Vol] 11.2 g/dL Low 11.8-15.4 [facility] Comment on above: Performed By: #### C BC #### [address] Lymphocytes (Bld) [#/Vol] 0.9 10*3/uL Low 1.00-4.8 [facility] Comment on above: Performed By: #### C BC #### [facility] [address] [place] [address] [place] Lymphocytes/100 WBC (Bld) 10.9 % Normal . [facility] Comment on above: Performed By: #### C BC #### [facility] [address] MCH (RBC) [Entitic mass] 29.6 pg Normal 24.7-34.3 [facility] Comment on above: Performed By: #### C BC #### [facility] [address] MCV (RBC) [Entitic vol] 90.5 fL Normal 80-100 [facility] Comment on above: Performed By: #### C BC #### [facility] [address] Mean Corpuscular HGB Conc 32.7 g/dL Normal 32.0-35.0 [facility] Comment on above: Performed By: #### C BC #### [facility] [address] [place] [address] [place] Monocytes (Bld) [#/Vol] 0.8 10*3/uL Normal 0.0-0.8 [facility] Comment on above: Performed By: #### C BC #### [facility] [address] [place] [address] [place] Monocytes/100 WBC (Bld) 9.8 % Normal . [facility] Comment on above: Performed By: #### C BC #### [facility] [address] [place] [address] [place] Neutrophils (Bld) [#/Vol] 6.4 10*3/uL Normal 1.8-7.7 [facility] Comment on above: Performed By: #### C BC #### [facility] [address] Neutrophils/100 WBC (Bld) 78.5 % Normal . [facility] Comment on above: Performed By: #### C BC #### [facility] [address] NRBC% 0.1 /100{WBC} Normal 0-0.5 [facility] Comment on above: Performed By: #### C BC #### [address] Platelet mean volume (Bld) [Entitic vol] 7.9 fL Normal 6.3-10.7 [facility] Comment on above: Performed By: #### C BC #### [address] Platelets (Bld) [#/Vol] 209 10*3/uL Normal 150-450 [facility] Comment on above: Performed By: #### C BC #### [address] RBC (Bld) [#/Vol] 3.80 10*6/uL Normal 3.60-5.00 [facility] Comment on above: Performed By: #### C BC #### [address] WBC (Bld) [#/Vol] 8.2 10*3/uL Normal 3.8-11.6 [facility] Comment on above: Performed By: #### C BC #### [address] Eosinophils Auto (Bld) [#/Vo l]Ordered By: Marlene Guerra on 06-15-2022 Eosinophils (Bld) [#/Vol] 0.0 10*3/uL 0.0-0.45 [facility] Eosinophils/100 WBC Auto (Bl d)Ordered By: Marlene Guerra on 06-15-2022 Eosinophils/100 WBC (Bld) 0.3 % . [facility] Erythrocyte distribution wid th Auto (RBC) [Ratio]Ordered By: Marlene Guerra on 06-15-2022 Erythrocyte distribution width (RBC) [Ratio] 15.6 % 11.9-15.3 [facility] Hematocrit Auto (Bld) [Volum e fraction]Ordered By: Marlene Guerra on 06-15-2022 Hematocrit (Bld) [Volume fraction] 34.4 % 34.0-46.4 [facility] Hemoglobin [Mass/volume] in BloodOrdered By: Marlene Guerra on 06-15-2022 Hemoglobin (Bld) [Mass/Vol] 11.2 g/dL 11.8-15.4 [facility] Influenza A and B Antigenon 06-15-2022 Influenza [...] Negative for Influenza B Antigen PERFORMED BY: [place] [address] PATHOLOGIST [employer] TRACY DICKERSON M.D. Normal [facility] Comment on above: Performed By: #### S DEANN, COVID-19 TERE #### [address] Influenza virus A and B anti gen detection by immunoassayOrdered By: Kassandra Vasquez on 06-15-2022 FLUAV+FLUBV Ag IA Ql (Unsp spec) [facility] Leukocytes [#/volume] correc scott for nucleated erythrocytes in Blood by Automated counOrdered By: Marlene Guerra on 06-15-2022 WBC corrected for nucl RBC Auto (Bld) [#/Vol] 8.2 10*3/uL 3.8-11.6 [facility] Lymphocytes Auto (Bld) [#/Vo l]Ordered By: Marlene Guerra on 06-15-2022 Lymphocytes (Bld) [#/Vol] 0.9 10*3/uL 1.00-4.8 [facility] Lymphocytes/100 WBC Auto (Bl d)Ordered By: Marlene Guerra on 06-15-2022 Lymphocytes/100 WBC (Bld) 10.9 % . [facility] MCH Auto (RBC) [Entitic mass ]Ordered By: Marlene Guerra on 06-15-2022 MCH (RBC) [Entitic mass] 29.6 pg 24.7-34.3 [facility] MCHC Auto (RBC) [Mass/Vol]Or dered By: Marlene Guerra on 06-15-2022 MCHC (RBC) [Mass/Vol] 32.7 g/dL 32.0-35.0 [facility] MCV Auto (RBC) [Entitic vol] Ordered By: Marlene Guerra on 06-15-2022 MCV (RBC) [Entitic vol] 90.5 fL 80-100 [facility] Monocytes Auto (Bld) [#/Vol] Ordered By: Marlene Guerra on 06-15-2022 Monocytes (Bld) [#/Vol] 0.8 10*3/uL 0.0-0.8 [facility] Monocytes/100 WBC Auto (Bld) Ordered By: Marlene Guerra on 06-15-2022 Monocytes/100 WBC (Bld) 9.8 % . [facility] Neutrophils Auto (Bld) [#/Vo l]Ordered By: Marlene Guerra on 06-15-2022 Neutrophils (Bld) [#/Vol] 6.4 10*3/uL 1.8-7.7 [facility] Neutrophils/100 WBC Auto (Bl d)Ordered By: Marlene Guerra on 06-15-2022 Neutrophils/100 WBC (Bld) 78.5 % . [facility] Nucleated erythrocytes [Pres ence] in Blood by Automated countOrdered By: Marlene Guerra on 06-15-2022 Nucleated RBC Auto Ql (Bld) 0.1 /100{WBC} 0-0.5 [facility] Platelet mean volume Auto (B ld) [Entitic vol]Ordered By: Marlene Guerra on 06-15-2022 Platelet mean volume (Bld) [Entitic vol] 7.9 fL 6.3-10.7 [facility] Platelets Auto (Bld) [#/Vol] Ordered By: Marlene Guerra on 06-15-2022 Platelets (Bld) [#/Vol] 209 10*3/uL 150-450 [facility] RBC Auto (Bld) [#/Vol]Ordere d By: Marlene Guerra on 06-15-2022 RBC (Bld) [#/Vol] 3.80 10*6/uL 3.60-5.00 [facility] Urine Cultureon 06-15-2022 Bacteria identified Cx Nom (U) 25,000 colonies/ml mixed bacterial skin contaminants 2 Days PERFORMED BY: [place] [address] PATHOLOGIST [employer] TRACY DICKERSON M.D. [facility] Comment on above: Performed By: #### C BC #### [address] Urine culture routineOrdered By: Marlene Guerra on 06-15-2022 Bacteria identified Cx Nom (U) 2 Days [facility] Vaginitis Plus (VG+)on 06-15 Atopobium Vaginae Low - 0 Normal . [facility] Comment on above: Order Comment: SOURC E OF SPECIMEN: Vagina per Dr. Cordoba. Performed By: #### C BC #### [address] BVAB2 Low - 0 Normal . [facility] Comment on above: Order Comment: SOURC E OF SPECIMEN: Vagina per Dr. Cordoba. Performed By: #### C BC #### [place] [address] [place] Emily Albicans, DORIAN Negative Normal Negative [facility] Comment on above: Order Comment: SOURC E OF SPECIMEN: Vagina per Dr. Cordoba. Result Comment: This test was developed and its performance characteristics determined by [facility]. It has not been cleared or approved by the Food and Drug Administration. Performed By: #### C BC #### [address] Emily Glabrata, DORIAN Negative Normal Negative [facility] Comment on above: Order Comment: SOURC E OF SPECIMEN: Vagina per Dr. Cordoba. Result Comment: This test was developed and its performance characteristics determined by [facility]. It has not been cleared or approved by the Food and Drug Administration. PERFORMED BY: [place] [address] PATHOLOGIST [employer] TRACY DICKERSON M.D. Performed By: #### C BC #### [address] Chlamydia Trachomotis, DORIAN Negative Normal Negative [facility] Comment on above: Order Comment: SOURC E OF SPECIMEN: Vagina per Dr. Cordoba. Performed By: #### C BC #### [address] Megasphaera Low - 0 Normal . [facility] Comment on above: Order Comment: [...] developed and its performance characteristics determined by [facility]. It has not been cleared or approved by the Food and Drug Administration. Performed By: #### C BC #### [address] Neisseria Gonorrhoeae, DORIAN Negative Normal Negative [facility] Comment on above: Order Comment: SOURC E OF SPECIMEN: Vagina per Dr. Cordoba. Result Comment: Perf ormed at: = - [facility] [id number] Lease Examiner: Ladan Lanza MD, Phone: [phone] Performed By: #### C BC #### [address] Tric Vag DORIAN Negative Normal Negative [facility] Comment on above: Order Comment: SOURC E OF SPECIMEN: Vagina per Dr. Cordoba. Performed By: #### C BC #### [address] WBC Auto (Bld) [#/Vol]Ordere d By: Marlene Guerra on 06-15-2022 WBC (Bld) [#/Vol] 8.2 10*3/uL 3.8-11.6 [facility] Albumin [Mass/volume] in Ser um or PlasmaOrdered By: Marty Mclean on 06-14-2022 Albumin [Mass/Vol] 4.0 g/dL 3.2-5.5 [facility] Ammoniaon 06-14-2022 Ammonia (P) [Moles/Vol] 10 umol/L Low 11-35 [facility] Comment on above: Result Comment: PERF ORMED BY: [place] [address] PATHOLOGIST [employer] TRACY DICKERSON M.D. Performed By: #### C BC #### [facility] [address] Automated erythrocytes count in urine sediment (number/area)Ordered By: Marty Mclean on 06-14-2022 RBC Auto (Urine sed) [#/Area] 0-1 [HPF] 0-4 [facility] Automated leukocytes count i n urine sediment (number/area)Ordered By: Marty Mclean on 06-14-2022 WBC Auto (Urine sed) [#/Area] None seen [HPF] 0-4 [facility] Automated urine color determ inationOrdered By: Marty Mclean on 06-14-2022 Color (U) Yellow Normal Yellow [facility] Comment on above: Order Comment: Name Collection Type:: Straight Catheter Performed By: #### S OFIANEG, COVID-19 TERE #### [facility] [address] [place] [address] Bilirubin Test strip Ql (U)O rdered By: Marty Mclean on 06-14-2022 Bilirubin Ql (U) Negative Negative [facility] COVID-19 Antigenon 3 COVID-19 Antigen [...] developed and its performance characteristic determined by [facility] and validated at [facility]. This test has not been FDA cleared [...] for SARS Antigen by [facility] PERFORMED BY: [place] [address] PATHOLOGIST [employer] TRACY DICKERSON M.D. Normal [facility] Comment on above: Performed By: #### S DEANN, COVID-19 TERE #### [address] COVID-19 SOFIAOrdered By: Ab aziza Mclean on 06-14-2022 SARS-CoV+SARS-CoV-2 (COVID-19) Ag IA.rapid Ql (Resp) Negative Negative [facility] Comment on above: This is a duplicate Tere SARS Antigen ([facility]) result to be used for statistical tracking purpose only. Complete Blood Count Auto Di ffon 06-14-2022 Basophils (Bld) [#/Vol] 0.0 10*3/uL Normal 0.0-0.2 [facility] Comment on above: Result Comment: PERF ORMED BY: [place] [id number] PATHOLOGIST [employer] TRACY DICKERSON M.D. Performed By: #### C BC #### [facility] [address] Basophils/100 WBC (Bld) 0.2 % Normal . [facility] Comment on above: Performed By: #### C BC #### [facility] [address] [place] [address] [place] Eosinophils (Bld) [#/Vol] 0.0 10*3/uL Normal 0.0-0.45 [facility] Comment on above: Performed By: #### C BC #### [facility] [address] Eosinophils/100 WBC (Bld) 0.1 % Normal . [facility] Comment on above: Performed By: #### C BC #### [address] Erythrocyte distribution width (RBC) [Ratio] 15.8 % High 11.9-15.3 [facility] Comment on above: Performed By: #### C BC #### [address] Hematocrit (Bld) [Volume fraction] 36.6 % Normal 34.0-46.4 [facility] Comment on above: Performed By: #### C BC #### [address] Hemoglobin (Bld) [Mass/Vol] 11.8 g/dL Normal 11.8-15.4 [facility] Comment on above: Performed By: #### C BC #### [facility] [address] [place] [address] [place] Lymphocytes (Bld) [#/Vol] 0.7 10*3/uL Low 1.00-4.8 [facility] Comment on above: Performed By: #### C BC #### [address] Lymphocytes/100 WBC (Bld) 5.8 % Normal . [facility] Comment on above: Performed By: #### C BC #### [facility] [address] MCH (RBC) [Entitic mass] 29.4 pg Normal 24.7-34.3 [facility] Comment on above: Performed By: #### C BC #### [facility] [address] MCV (RBC) [Entitic vol] 90.8 fL Normal 80-100 [facility] Comment on above: Performed By: #### C BC #### [address] Mean Corpuscular HGB Conc 32.3 g/dL Normal 32.0-35.0 [facility] Comment on above: Performed By: #### C BC #### [address] Monocytes (Bld) [#/Vol] 0.8 10*3/uL Normal 0.0-0.8 [facility] Comment on above: Performed By: #### C BC #### [address] Monocytes/100 WBC (Bld) 6.2 % Normal . [facility] Comment on above: Performed By: #### C BC #### [address] Neutrophils (Bld) [#/Vol] 10.8 10*3/uL High 1.8-7.7 [facility] Comment on above: Performed By: #### C BC #### [address] Neutrophils/100 WBC (Bld) 87.7 % Normal . [facility] Comment on above: Performed By: #### C BC #### [address] NRBC% 0.0 /100{WBC} Normal 0-0.5 [facility] Comment on above: Performed By: #### C BC #### [address] Platelet mean volume (Bld) [Entitic vol] 7.9 fL Normal 6.3-10.7 [facility] Comment on above: Performed By: #### C BC #### [address] Platelets (Bld) [#/Vol] 255 10*3/uL Normal 150-450 [facility] Comment on above: Performed By: #### C BC #### [address] RBC (Bld) [#/Vol] 4.02 10*6/uL Normal 3.60-5.00 [facility] Comment on above: Performed By: #### C BC #### [address] WBC (Bld) [#/Vol] 12.3 10*3/uL High 3.8-11.6 [facility] Comment on above: Performed By: #### C BC #### [address] Comprehensive Metabolic Pane nydia 06-14-2022 Albumin [Mass/Vol] 4.0 g/dL Normal 3.2-5.5 [facility] Comment on above: Performed By: #### C MP #### [address] Albumin/Globulin [Mass ratio] 1.1 {ratio} Normal [facility] Comment on above: Performed By: #### C MP #### [address] ALP [Catalytic activity/Vol] 91 U/L Normal 32-92 [facility] Comment on above: Performed By: #### C MP #### [address] ALT [Catalytic activity/Vol] 25 U/L Normal 10-60 [facility] Comment on above: Performed By: #### C MP #### [address] Anion gap [Moles/Vol] 13.7 mmol/L Normal 6.0-15.0 [facility] [facility] Comment on above: Performed By: #### C MP #### [facility] [address] AST [Catalytic activity/Vol] 17 U/L Normal 10-42 [facility] Comment on above: Performed By: #### C MP #### [facility] [address] Bilirubin [Mass/Vol] 0.9 mg/dL Normal 0.3-1.2 [facility] Comment on above: Performed By: #### C MP #### [facility] [address] Calcium [Mass/Vol] 10.1 mg/dL Normal 8.2-10.2 [facility] Comment on above: Performed By: #### C MP #### [facility] [address] [place] [address] Chloride [Moles/Vol] 104 mmol/L Normal 95-114 [facility] Comment on above: Performed By: #### C MP #### [facility] [address] [place] [address] CO2 [Moles/Vol] 24.6 mmol/L Normal 22.0-30.0 [facility] Comment on above: Performed By: #### C MP #### [facility] [address] [place] [address] Creatinine [Mass/Vol] 1.44 mg/dL High 0.44-1.03 [facility] Comment on above: Performed By: #### C MP #### [facility] [address] [place] [address] [place] Creatinine Clr Calc Pharmacy 36.05 [facility] Comment on above: Result Comment: PERF ORMED BY: [place] [address] PATHOLOGIST [employer] TRACY DICKERSON M.D. Performed By: #### C MP #### [address] Estimated GFR ( Emilie 44 Normal [facility] Comment on above: Result Comment: GFR estimated reference range: According to KDOQI guidelines, <60 ml/min/1.73m2 is sufficient to diagnose a patient with chronic kidney disease. Performed By: #### C MP #### [facility] [address] Estimated GFR (Non- Am 36 [facility] Comment on above: Performed By: #### C MP #### [facility] [address] Globulin (S) [Mass/Vol] 3.5 g/dL Normal [facility] Comment on above: Performed By: #### C MP #### [address] Glucose [Mass/Vol] 97 mg/dL Normal 70-100 [facility] Comment on above: Result Comment: [place] om Glucose Reference Range is dependent on time and content of last meal. Glucose of more than 200 mg/dL in a nonstressed, ambulatory subject supports the diagnosis of Diabetes Mellitus. ADA recommended reference range Performed By: #### C MP #### [address] Potassium [Moles/Vol] 4.3 mmol/L Normal 3.5-5.1 [facility] Comment on above: Performed By: #### C MP #### [address] Protein [Mass/Vol] 7.5 g/dL Normal 6.1-7.9 [facility] Comment on above: Performed By: #### C MP #### [place] [address] [place] Sodium [Moles/Vol] 138 mmol/L Normal 136-146 [facility] Comment on above: Performed By: #### C MP #### [place] [address] [place] Urea nitrogen [Mass/Vol] 36 mg/dL High 9-23 [facility] Comment on above: Performed By: #### C MP #### [address] [place] [address] [place] Dipstick and Microscopicon 0 06-14-2022 Bacteria,Urine None Seen Normal None Seen [facility] Comment on above: Order Comment: Name Collection Type:: Straight Catheter Performed By: #### S OFIANEG, COVID-19 TERE #### [address] Hyaline Casts,Urine None Seen Normal 0-8 [facility] Comment on above: Order Comment: Name Collection Type:: Straight Catheter Result Comment: PERF ORMED BY: [place] [address] PATHOLOGIST [employer] TRACY DICKERSON M.D. Performed By: #### S OFIANEG, COVID-19 TERE #### [address] RBC LM.HPF (Urine sed) [#/Area] 0 /[HPF] Normal 0-4 [facility] Comment on above: Order Comment: Name Collection Type:: Straight Catheter Performed By: #### S OFIANEG, COVID-19 TERE #### [address] Squamous Epithelial Cell,Urine None Seen Normal 0-2 [facility] Comment on above: Order Comment: Name Collection Type:: Straight Catheter Performed By: #### S OFIANEG, COVID-19 TERE #### [address] WBC,Urine None Seen Normal 0-4 [facility] Comment on above: Order Comment: Name Collection Type:: Straight Catheter Performed By: #### S OFIANEG, COVID-19 TERE #### [address] Globulin Calc (S) [Mass/Vol] Ordered By: Marty Mclean on 06-14-2022 Globulin (S) [Mass/Vol] 3.5 g/dL [facility] Ketones Auto test strip (U) [Mass/Vol]Ordered By: Marty Mclean on 06-14-2022 Ketones (U) [Mass/Vol] Negative Negative Fi [facility] Laboratory - UrinalysisOrder ed By: Marty Mclean on 06-14-2022 Hyaline casts LM Ql (Urine sed) None seen [LPF] 0-8 [facility] Monocyte %Ordered By: Marlene Guerra on 06-14-2022 Monocyte % 10 umol/L 11-35 [facility] Nitrite Test strip Ql (U)Ord ered By: Marty Mclean on 06-14-2022 Nitrite Ql (U) Negative Negative [facility] Protein Auto test strip (U) [Mass/Vol]Ordered By: Marty Mclean on 06-14-2022 Protein (U) [Mass/Vol] Negative Negative [facility] Protein [Mass/volume] in Ser um or PlasmaOrdered By: Marty Mclean on 06-14-2022 Protein [Mass/Vol] 7.5 g/dL 6.1-7.9 [facility] Serum or plasma alanine reyes otransferase measurement without P-5'-P (enzymatic activiOrdered By: Marty Mclean on 06-14-2022 ALT No additional P-5'-P [Catalytic activity/Vol] 25 U/L 10-60 [facility] Serum or plasma albumin/glob ulin mass ratioOrdered By: Marty Mclean on 06-14-2022 Albumin/Globulin [Mass ratio] 1.1 {ratio} [facility] Serum or plasma alkaline derek sphatase measurement (enzymatic activity/volume)Ordered By: Marty Mclean on 06-14-2022 ALP [Catalytic activity/Vol] 91 U/L 32-92 [facility] Serum or plasma aspartate am inotransferase measurement (enzymatic activity/volume)Ordered By: Marty Mclean on 06-14-2022 AST [Catalytic activity/Vol] 17 U/L 10-42 [facility] Serum or plasma total biliru bin measurement (mass/volume)Ordered By: Marty Mclean on 06-14-2022 Bilirubin [Mass/Vol] 0.9 mg/dL 0.3-1.2 [facility] Tere Ag Negativeon 06-14-19 23 Tere Ag Negative Negative Normal Negative [facility] Comment on above: Result Comment: This is a duplicate Tere SARS Antigen (CHU) result to be used for statistical tracking purpose only. PERFORMED BY: [place] [address] PATHOLOGIST [employer] TRACY DICKERSON M.D. Performed By: #### S OFIANEG, COVID-19 TERE #### [facility] [address] Specific gravity Auto test s trip (U) [Rel density]Ordered By: Marty Mclean on 06-14-2022 Specific gravity (U) [Rel density] 1.018 1.001-1.030 [facility] Squamous epithelial cells de tection in urine sediment by light microscopyOrdered By: Marty Mclean on 06-14-2022 Epithelial cells.squamous LM Ql (Urine sed) None seen [HPF] 0-2 [facility] Urinalysison 06-14-2022 Appearance (U) Clear Normal Clear [facility] Comment on above: Order Comment: Name Collection Type:: Straight Catheter Performed By: #### S OFIANEG, COVID-19 TERE #### [facility] [address] [place] [address] [place] Bilirubin,Urine Negative Normal Negative [facility] Comment on above: Order Comment: Name Collection Type:: Straight Catheter Performed By: #### S OFIANEG, COVID-19 TERE #### [facility] [address] [place] [address] [place] Glucose Ql (U) Normal Normal Normal [facility] Comment on above: Order Comment: Name Collection Type:: Straight Catheter Performed By: #### S OFIANEG, COVID-19 TERE #### [facility] [address] [place] [id number] [place] Ketones Ql (U) Negative Normal Negative [facility] Comment on above: Order Comment: Name Collection Type:: Straight Catheter Performed By: #### S OFIANEG, COVID-19 TERE #### [facility] [address] Leukocyte esterase Test strip Ql (U) Negative Normal Negative [facility] Comment on above: Order Comment: Name Collection Type:: Straight Catheter Performed By: #### S OFIANEG, COVID-19 TERE #### [facility] [address] [place] [address] [place] Nitrite,Urine Negative Normal Negative [facility] Comment on above: Order Comment: Name Collection Type:: Straight Catheter Performed By: #### S OFIANEG, COVID-19 TERE #### [facility] [address] Occult Blood,Urine Negative Normal Negative [facility] Comment on above: Order Comment: Name Collection Type:: Straight Catheter Result Comment: PERF ORMED BY: [place] [address] PATHOLOGIST [employer] TRACY DICKERSON M.D. Performed By: #### S OFIANEG, COVID-19 TERE #### [place] [address] [place] Protein,Urine Negative Normal Negative [facility] Comment on above: Order Comment: Name Collection Type:: Straight Catheter Performed By: #### S OFIANEG, COVID-19 TERE #### [place] [address] [place] Specificy [place],Urine 1.018 Normal 1.001-1.030 [facility] Comment on above: Order Comment: Name Collection Type:: Straight Catheter Performed By: #### S OFIANEG, COVID-19 TERE #### [place] [address] [place] Urobilinogen,Urine Normal Normal Normal [facility] Comment on above: Order Comment: Name Collection Type:: Straight Catheter Performed By: #### S OFIANEG, COVID-19 TERE #### [address] Urine bacteria detection by automated methodOrdered By: Marty Mclean on 06-14-2022 Bacteria Auto Ql (U) None seen None Seen [facility] Urine clarity by refractomet ry automatedOrdered By: Marty Mclean on 06-14-2022 Clarity Refractometry automated (U) Clear Clear [facility] Urine glucose measurement by automated test strip (mass/volume)Ordered By: Marty Mclean on 06-14-2022 Glucose Auto test strip (U) [Mass/Vol] Normal mg/dL Normal [facility] Urine hemoglobin detection b y automated test stripOrdered By: Marty Mclean on 06-14-2022 Hemoglobin Auto test strip Ql (U) Negative Negative [facility] Urine leukocyte esterase det ection by automated test stripOrdered By: Marty Mclean on 06-14-2022 Leukocyte esterase Auto test strip Ql (U) Negative Negative [facility] Urine pH measurement by auto mated test stripOrdered By: Marty Mclean on 06-14-2022 pH (U) 6.0 [pH] Normal 5.0-9.0 [facility] Comment on above: Order Comment: Name Collection Type:: Straight Catheter Performed By: #### S CRISTIANO ZACARIAS #### [address] Urobilinogen Auto test strip (U) [Mass/Vol]Ordered By: Marty Mclean on 06-14-2022 Urobilinogen (U) [Mass/Vol] Normal mg/dL Normal [facility] CT head/brain wo conon 06-11 CT head/brain wo con [facility] [place] [address] [place] [address] CT Scan Report Signed Patient: Marley Osborn MR#: [id number] 17 : 1955 Acct:[id number] Age/Sex: 66 / F ADM Date: 05/30/22 Loc: Room: [address] [place] [address] Type: ADM IN Attending Dr: Reggie Quintana [...] Layne Lew M.D.06/11/2022 7:25 AM Dictation Location: [place] [address] Transcribed By: [facility] 06/11/22724 Dictated By: Layne Lew MD 06/11/2221 Signed By: 06/11/[address] [facility] [address] head/brain wo conon 06-04 CT head/brain wo con [facility] [place] [address] CT Scan Report Signed Patient: Marley Osborn MR#: [id number] 17 : 1955 Acct:[id number] Age/Sex: 66 / F ADM Date: 05/30/22 Loc: Room: [address] [place] [address] Type: ADM IN Attending Dr: Reggie Quintana [...] Zayas Jr., D.OKarolina06/04/2022 1:44 PM Dictation Location: [place] [address] Transcribed By: [facility] 06/04/22 1344 Dictated By: Cody Zayas Jr, DO 06/04/22 1342 Signed By: 06/04/22 1344 [facility] Basic Metabolic Panelon Anion gap [Moles/Vol] 10.2 mmol/L Normal 6.0-15.0 [facility] Comment on above: Performed By: #### C BC #### [facility] [address] Calcium [Mass/Vol] 9.6 mg/dL Normal 8.2-10.2 [facility] Comment on above: Performed By: #### C BC #### [facility] [address] [place] [id number] [place] Chloride [Moles/Vol] 107 mmol/L Normal 95-114 [facility] Comment on above: Performed By: #### C BC #### [facility] [address] [place] [address] [place] CO2 [Moles/Vol] 26.8 mmol/L Normal 22.0-30.0 [facility] Comment on above: Performed By: #### C BC #### [facility] [address] [place] [id number] [place] Creatinine [Mass/Vol] 1.33 mg/dL High 0.44-1.03 [facility] Comment on above: Performed By: #### C BC #### [facility] [address] [place] [id number] [place] Creatinine Clr Calc Pharmacy 38.28 Normal [facility] Comment on above: Result Comment: PERF ORMED BY: [place] [address] PATHOLOGIST [employer] TRACY DICKERSON M.D. Performed By: #### C BC #### [address] Estimated GFR ( Emilie 48 [facility] Comment on above: Result Comment: GFR estimated reference range: According to KDOQI guidelines, <60 ml/min/1.73m2 is sufficient to diagnose a patient with chronic kidney disease. Performed By: #### C BC #### [address] Estimated GFR (Non- Am 40 [facility] Comment on above: Performed By: #### C BC #### [address] Glucose [Mass/Vol] 81 mg/dL Normal 70-100 [facility] Comment on above: Result Comment: [place] Glucose Reference Range is dependent on time and content of last meal. Glucose of more than 200 mg/dL in a nonstressed, ambulatory subject supports the diagnosis of Diabetes Mellitus. ADA recommended reference range Performed By: #### C BC #### [address] Potassium [Moles/Vol] 4.0 mmol/L Normal 3.5-5.1 [facility] Comment on above: Performed By: #### C BC #### [address] Sodium [Moles/Vol] 140 mmol/L Normal 136-146 [facility] Comment on above: Performed By: #### C BC #### [address] Urea nitrogen [Mass/Vol] 27 mg/dL High 9-23 [facility] Comment on above: Performed By: #### C BC #### [address] Complete Blood Count Auto Di ffon 06-02-2022 Basophils (Bld) [#/Vol] 0.0 10*3/uL Normal 0.0-0.2 [facility] Comment on above: Result Comment: PERF ORMED BY: [place] [address] PATHOLOGIST [employer] TRACY DICKERSON M.D. Performed By: #### C BC #### [address] Basophils/100 WBC (Bld) 0.6 % Normal . [facility] Comment on above: Performed By: #### C BC #### [address] Eosinophils (Bld) [#/Vol] 0.2 10*3/uL Normal 0.0-0.45 [facility] Comment on above: Performed By: #### C BC #### [address] Eosinophils/100 WBC (Bld) 3.8 % Normal . [facility] Comment on above: Performed By: #### C BC #### [address] Erythrocyte distribution width (RBC) [Ratio] 15.3 % Normal 11.9-15.3 [facility] Comment on above: Performed By: #### C BC #### [address] Hematocrit (Bld) [Volume fraction] 26.8 % Low 34.0-46.4 [facility] Comment on above: Performed By: #### C BC #### [address] Hemoglobin (Bld) [Mass/Vol] 8.9 g/dL Low 11.8-15.4 [facility] Comment on above: Performed By: #### C BC #### [address] Lymphocytes (Bld) [#/Vol] 1.0 10*3/uL Normal 1.00-4.8 [facility] Comment on above: Performed By: #### C BC #### [address] Lymphocytes/100 WBC (Bld) 22.6 % Normal . [facility] Comment on above: Performed By: #### C BC #### [address] MCH (RBC) [Entitic mass] 30.2 pg Normal 24.7-34.3 [facility] Comment on above: Performed By: #### C BC #### [address] MCV (RBC) [Entitic vol] 90.2 fL Normal 80-100 [facility] Comment on above: Performed By: #### C BC #### [address] Mean Corpuscular HGB Conc 33.5 g/dL Normal 32.0-35.0 [facility] Comment on above: Performed By: #### C BC #### [address] Monocytes (Bld) [#/Vol] 0.4 10*3/uL Normal 0.0-0.8 [facility] Comment on above: Performed By: #### C BC #### [address] Monocytes/100 WBC (Bld) 9.2 % Normal . [facility] Comment on above: Performed By: #### C BC #### [address] Neutrophils (Bld) [#/Vol] 2.9 10*3/uL Normal 1.8-7.7 [facility] Comment on above: Performed By: #### C BC #### [address] Neutrophils/100 WBC (Bld) 63.8 % Normal . [facility] Comment on above: Performed By: #### C BC #### [address] NRBC% 0.3 /100{WBC} Normal 0-0.5 [facility] Comment on above: Performed By: #### C BC #### [address] Platelet mean volume (Bld) [Entitic vol] 9.2 fL Normal 6.3-10.7 [facility] Comment on above: Performed By: #### C BC #### [address] Platelets (Bld) [#/Vol] 131 10*3/uL Low 150-450 [facility] Comment on above: Performed By: #### C BC #### [address] RBC (Bld) [#/Vol] 2.97 10*6/uL Low 3.60-5.00 [facility] Comment on above: Performed By: #### C BC #### [address] WBC (Bld) [#/Vol] 4.6 10*3/uL Normal 3.8-11.6 [facility] Comment on above: Performed By: #### C BC #### [address] Triiodothyronine (T3) Freeon 06-02-2022 Triiodothyronine (T3) Free 2.78 pg/mL Normal 2.50-3.90 [facility] Comment on above: Order Comment: Comme nt can use previous draw if able Result Comment: PERF ORMED BY: [place] [address] PATHOLOGIST [employer] TRACY DICKERSON M.D. Performed By: #### C BC #### [address] Triiodothyronine (T3) Free [ Mass/volume] in Serum or PlasmaOrdered By: Anca Wheeler on 06-02-2022 Free T3 [Mass/Vol] 2.78 pg/mL 2.50-3.90 [facility] Ammoniaon 06-01-2022 Ammonia (P) [Moles/Vol] 15 umol/L Normal 11-35 [facility] Comment on above: Result Comment: PERF ORMED BY: [place] [address] PATHOLOGIST [employer] TRACY DICKERSON M.D. Performed By: #### C BC, BMP, AMM #### [facility] [address] [place] [address] Basic Metabolic Panelon - Anion gap [Moles/Vol] 8.8 mmol/L Normal 6.0-15.0 [facility] Comment on above: Performed By: #### C BC, BMP, AMM #### [address] Calcium [Mass/Vol] 9.4 mg/dL Normal 8.2-10.2 [facility] Comment on above: Performed By: #### C BC, BMP, AMM #### [address] Chloride [Moles/Vol] 110 mmol/L Normal 95-114 [facility] Comment on above: Performed By: #### C BC, BMP, AMM #### [address] CO2 [Moles/Vol] 26.4 mmol/L Normal 22.0-30.0 [facility] Comment on above: Performed By: #### C BC, BMP, AMM #### [facility] [address] [place] [address] Creatinine [Mass/Vol] 1.12 mg/dL High 0.44-1.03 [facility] Comment on above: Performed By: #### C BC, BMP, AMM #### [address] Creatinine Clr Calc Pharmacy 45.46 Normal [facility] Comment on above: Result Comment: PERF ORMED BY: [facility] [address] [place] [address] PATHOLOGIST [employer] TRACY DICKERSON M.D. Performed By: #### C BC, BMP, AMM #### [facility] [address] Estimated GFR ( Emilie 59 [facility] Comment on above: Result Comment: GFR estimated reference range: According to KDOQI guidelines, <60 ml/min/1.73m2 is sufficient to diagnose a patient with chronic kidney disease. Performed By: #### C BC, BMP, AMM #### [facility] [address] Estimated GFR (Non- Am 49 [facility] Comment on above: Performed By: #### C BC, BMP, AMM #### [address] Glucose [Mass/Vol] 79 mg/dL Normal 70-100 [facility] Comment on above: Result Comment: [place] Glucose Reference Range is dependent on time and content of last meal. Glucose of more than 200 mg/dL in a nonstressed, ambulatory subject supports the diagnosis of Diabetes Mellitus. ADA recommended reference range Performed By: #### C BC, BMP, AMM #### [address] Potassium [Moles/Vol] 3.2 mmol/L Low 3.5-5.1 [facility] Comment on above: Performed By: #### C BC, BMP, AMM #### [place] [address] [place] Sodium [Moles/Vol] 142 mmol/L Normal 136-146 [facility] Comment on above: Performed By: #### C BC, BMP, AMM #### [facility] [address] [place] [address] [place] Urea nitrogen [Mass/Vol] 25 mg/dL High 02-22 [facility] Comment on above: Performed By: #### C BC, BMP, AMM #### [facility] [address] biopsyOrdered By: Anca walter on 06-01-2022 Transferrin [Mass/Vol] 207 mg/dL 180-380 [facility] Complete Blood Count Auto Di ffon 06-01-2022 Basophils (Bld) [#/Vol] 0.0 10*3/uL Normal 0.0-0.2 [facility] Comment on above: Result Comment: PERF ORMED BY: [facility] [address] [place] [address] PATHOLOGIST [employer] TRACY DICKERSON M.D. Performed By: #### S OFIANEG, COVID-19 TERE #### [facility] [address] Basophils/100 WBC (Bld) 0.5 % Normal . [facility] Comment on above: Performed By: #### S OFIANEG, COVID-19 TERE #### [facility] [address] [place] [address] Eosinophils (Bld) [#/Vol] 0.2 10*3/uL Normal 0.0-0.45 [facility] Comment on above: Performed By: #### S OFIANEG, COVID-19 TERE #### [facility] [address] [place] [address] Eosinophils/100 WBC (Bld) 4.1 % Normal . [facility] Comment on above: Performed By: #### S OFIANEG, COVID-19 TERE #### [facility] [address] [place] [address] Erythrocyte distribution width (RBC) [Ratio] 14.7 % Normal 11.9-15.3 [facility] Comment on above: Performed By: #### S OFIANEG, COVID-19 TERE #### [facility] [address] Hematocrit (Bld) [Volume fraction] 27.0 % Low 34.0-46.4 [facility] Comment on above: Performed By: #### S OFIANEG, COVID-19 TERE #### [facility] [address] [place] [address] Hemoglobin (Bld) [Mass/Vol] 8.9 g/dL Low 11.8-15.4 [facility] Comment on above: Performed By: #### S ALLISON ZACARIAS- TERE #### [address] Lymphocytes (Bld) [#/Vol] 1.3 10*3/uL Normal 1.00-4.8 [facility] Comment on above: Performed By: #### S CONSTANCE ZACARIASID- TERE #### [address] Lymphocytes/100 WBC (Bld) 26.3 % Normal . [facility] Comment on above: Performed By: #### S CONSTANCE ZACARIASID- TERE #### [address] MCH (RBC) [Entitic mass] 30.0 pg Normal 24.7-34.3 [facility] Comment on above: Performed By: #### S CONSTANCE ZACARIASID- TERE #### [address] MCV (RBC) [Entitic vol] 90.7 fL Normal 80-100 [facility] Comment on above: Performed By: #### S CONSTANCE ZACARIASID- TERE #### [address] Mean Corpuscular HGB Conc 33.0 g/dL Normal 32.0-35.0 [facility] Comment on above: Performed By: #### S CONSTANCE ZACARIASID- TERE #### [address] Monocytes (Bld) [#/Vol] 0.6 10*3/uL Normal 0.0-0.8 [facility] Comment on above: Performed By: #### S CONSTANCE ZACARIASID-19 TERE #### [address] Monocytes/100 WBC (Bld) 11.7 % Normal . [facility] Comment on above: Performed By: #### S OFSANDRA COVID-19 TERE #### [facility] [address] Neutrophils (Bld) [#/Vol] 2.9 10*3/uL Normal 1.8-7.7 [facility] Comment on above: Performed By: #### S OFSANDRA COVID-19 TERE #### [facility] [address] Neutrophils/100 WBC (Bld) 57.4 % Normal . [facility] Comment on above: Performed By: #### S OFSANDRA COVID-19 TERE #### [facility] [address] [place] [address] NRBC% 0.3 /100{WBC} Normal 0-0.5 [facility] Comment on above: Performed By: #### S OFSANDRA COVID-19 TERE #### [address] Platelet mean volume (Bld) [Entitic vol] 9.1 fL Normal 6.3-10.7 [facility] Comment on above: Performed By: #### S OFSANDRA COVID-19 TERE #### [place] [address] [place] Platelets (Bld) [#/Vol] 95 10*3/uL Low 150-450 [facility] Comment on above: Performed By: #### S OFSANDRA COVID-19 TERE #### [address] RBC (Bld) [#/Vol] 2.97 10*6/uL Low 3.60-5.00 [facility] Comment on above: Performed By: #### S OFSANDRA COVID-19 TERE #### [address] WBC (Bld) [#/Vol] 5.1 10*3/uL Normal 3.8-11.6 [facility] Comment on above: Performed By: #### S OFIANEG, COVID-19 TERE #### [facility] [address] [place] [address] [place] Ferritinon 06-01-2022 Ferritin [Mass/Vol] 212.1 ng/mL Normal 11-306.8 [facility] Comment on above: Order Comment: Comme nt can use previous draw if able Comment can use previous draw if able Performed By: #### V [id number], TSH3, FE and TIBC, GASPER #### [facility] [address] [place] [id number] [facility] Ferritin [Mass/volume] in Se rum or PlasmaOrdered By: Anca Wheeler on 06-01-2022 Ferritin [Mass/Vol] 212.1 ng/mL 11-306.8 [facility] Folate [Mass/volume] in Seru m or PlasmaOrdered By: Anca Wheeler on 06-01-2022 Folate [Mass/Vol] 5.6 ng/mL >5.9 [facility] Comment on above: Folate reference ran ge: >5.9 ng/mlThe WHO technical consultation on folate and vitamin [id number] has determined that folate concentrations lessthan 4 ng/ml are considered deficient. Iron [Mass/volume] in Serum or PlasmaOrdered By: Anca Wheeler on 06-01-2022 Iron [Mass/Vol] 51 ug/dL 40-150 [facility] Iron and TIBC Profileon 05-04 % Iron Saturation 17.6 % Low 20-50 [facility] Comment on above: Order Comment: Comme nt can use previous draw if able Comment can use previous draw if able Performed By: #### V [id number], TSH3, FE and TIBC, GASPER #### [facility] [address] [place] [id number] [facility] Iron [Mass/Vol] 51 ug/dL Normal 40-150 [facility] Comment on above: Order Comment: Comme nt can use previous draw if able Comment can use previous draw if able Performed By: #### V [id number], TSH3, FE and TIBC, GASPER #### [facility] [address] [place] [id number] [facility] Total Iron Binding Capacity 290 ug/dL Normal 255-450 [facility] Comment on above: Order Comment: Comme nt can use previous draw if able Comment can use previous draw if able Performed By: #### V [id number], TSH3, FE and TIBC, GASPER #### [facility] [address] Transferrin [Mass/Vol] 207 mg/dL Normal 180-380 [facility] Comment on above: Order Comment: Comme nt can use previous draw if able Comment can use previous draw if able Performed By: #### V [id number], TSH3, FE and TIBC, GASPER #### [facility] [address] Iron binding capacity [Mass/ volume] in Serum or PlasmaOrdered By: Anca Wheeler on 06-01-2022 Iron binding capacity [Mass/Vol] 290 ug/dL 255-450 [facility] Iron saturation [Mass Fracti on] in Serum or PlasmaOrdered By: Anca Wheeler on 06-01-2022 Iron saturation [Mass fraction] 17.6 % 20-50 [facility] Laboratory - Chemistry and C hemistry - challengeOrdered By: Anca Wheeler on 06-01-2022 Cobalamin (Vitamin B12) [Mass/Vol] 452 pg/mL 180-914 [facility] TSH DL <= 0.005 mIU/L QnOrde red By: Anca Wheeler on 06-01-2022 TSH Qn 2.65 m[IU]/L 0.45-5.33 [facility] Thyroid Stimulating Hormoneo n 06-01-2022 TSH Qn 2.65 m[IU]/L Normal 0.45-5.33 [facility] Comment on above: Order Comment: Comme nt can use previous draw if able Comment can use previous draw if able Result Comment: PERF ORMED BY: [place] [address] PATHOLOGIST [employer] TRACY DICKERSON M.D. Performed By: #### V [id number], TSH3, FE and TIBC, GASPER #### [address] Vit. B12/Folate Profileon Cobalamin (Vitamin B12) [Mass/Vol] 452 pg/mL Normal 180-914 [facility] Comment on above: Order Comment: Comme nt can use previous draw if able Comment can use previous draw if able Performed By: #### V [id number], TSH3, FE and TIBC, GASPER #### [facility] [address] Folate 5.6 ng/mL Low >5.9 [facility] Comment on above: Order Comment: Comme nt can use previous draw if able Comment can use previous draw if able Result Comment: Yazmin te reference range: >5.9 ng/ml The WHO technical consultation on folate and vitamin b12 deficiencies has determined that folate concentrations less than 4 ng/ml are considered deficient. Performed By: #### V [id number], TSH3, FE and TIBC, GASPER #### [facility] [address] Casts typing in urine sedime nt by light microscopyOrdered By: Reggie Quintana on 05-31-2022 Casts LM Nom (Urine sed) None seen [LPF] None Seen [facility] Cholesterol [Mass/volume] in Serum or PlasmaOrdered By: Reggie Quintana on 05-31-2022 Cholesterol [Mass/Vol] 139 mg/dL 140-200 [facility] Comment on above: Chol less than 200 m g/dl low riskChol 201-239 mg/dl borderline riskChol 240 mg/dl and greater high risk Cholesterol in LDL Calc [Mas s/Vol]Ordered By: Reggie Quintana on 05-31-2022 Cholesterol in LDL [Mass/Vol] 50 mg/dL 0-100 [facility] Comment on above: LDL ATP III CLASSIFI CATIONLDL less than 100 mg/dL OptimalLDL 100-129 mg/dL Near or above optimalLDL 130-159 mg/dL Borderline highLDL 160-189 mg/dL HighLDL greater than 189 mg/dL Very high Cholesterol in VLDL Calc [Ma ss/Vol]Ordered By: Reggie Quintana on 05-31-2022 Cholesterol in VLDL [Mass/Vol] 16 mg/dL [facility] Dipstick and Microscopicon 1 Appearance (U) Clear Normal Clear [facility] Comment on above: Order Comment: Name Collection Type:: Clean-Voided Midstream Performed By: #### S OFIANEG, COVID-19 TERE #### [facility] [address] [place] [address] [place] Bacteria,Urine Rare High None Seen [facility] Comment on above: Order Comment: Name Collection Type:: Clean-Voided Midstream Performed By: #### S OFIANEG, COVID-19 TERE #### [facility] [address] [place] [address] [place] Bilirubin,Urine Negative Normal Negative [facility] Comment on above: Order Comment: Name Collection Type:: Clean-Voided Midstream Performed By: #### S OFIANEG, COVID-19 TERE #### [facility] [address] [place] [address] [place] Color (U) Yellow Normal Yellow [facility] Comment on above: Order Comment: Name Collection Type:: Clean-Voided Midstream Performed By: #### S OFIANEG, COVID-19 TERE #### [facility] [address] [place] [address] [place] Fine Granular Casts,Urine 1-2 High 0-1 [facility] Comment on above: Order Comment: Name Collection Type:: Clean-Voided Midstream Performed By: #### S OFIANEG, COVID-19 TERE #### [facility] [address] [place] [address] [place] Glucose Ql (U) Normal Normal Normal [facility] Comment on above: Order Comment: Name Collection Type:: Clean-Voided Midstream Performed By: #### S OFIANEG, COVID-19 TERE #### [facility] [address] [place] [address] [place] Hyaline Casts,Urine 10-19 High 0-1 [facility] Comment on above: Order Comment: Name Collection Type:: Clean-Voided Midstream Performed By: #### S OFIANEG, COVID-19 TERE #### [facility] [address] [place] [address] [place] Ketones Ql (U) Negative Normal Negative [facility] Comment on above: Order Comment: Name Collection Type:: Clean-Voided Midstream Performed By: #### S OFIANEG, COVID-19 TERE #### [facility] [address] Leukocyte esterase Test strip Ql (U) 2+ High Negative [facility] Comment on above: Order Comment: Name Collection Type:: Clean-Voided Midstream Performed By: #### S OFIANEG, COVID-19 TERE #### [facility] [address] [place] [address] [place] Mucus,Urine 4+ Critically abnormal [facility] Comment on above: Order Comment: Name Collection Type:: Clean-Voided Midstream Result Comment: PERF ORMED BY: [place] [address] PATHOLOGIST [employer] TRACY DICKERSON M.D. Performed By: #### S OFIANEG, COVID-19 TREE #### [place] [address] [place] Nitrite,Urine Negative Normal Negative [facility] Comment on above: Order Comment: Name Collection Type:: Clean-Voided Midstream Performed By: #### S OFIANEG, COVID-19 TERE #### [facility] [address] [place] [address] [place] Occult Blood,Urine Trace High Negative [facility] Comment on above: Order Comment: Name Collection Type:: Clean-Voided Midstream Result Comment: PERF ORMED BY: [place] [address] PATHOLOGIST [employer] TRACY DICKERSON M.D. Performed By: #### S OFIANEG, COVID-19 TERE #### [facility] [address] [place] [address] [place] Other Casts,Urine None Seen Normal None Seen [facility] Comment on above: Order Comment: Name Collection Type:: Clean-Voided Midstream Performed By: #### S OFIANEG, COVID-19 TERE #### [facility] [address] pH (U) 5.5 [pH] Normal 5.0-9.0 [facility] Comment on above: Order Comment: Name Collection Type:: Clean-Voided Midstream Performed By: #### S OFIANEG, COVID-19 TERE #### [facility] [address] [place] [address] [place] Protein,Urine Negative Normal Negative [facility] Comment on above: Order Comment: Name Collection Type:: Clean-Voided Midstream Performed By: #### S OFIANEG, COVID-19 TERE #### [facility] [address] [place] [address] RBC,Urine 3-4 Normal 0-4 [facility] Comment on above: Order Comment: Name Collection Type:: Clean-Voided Midstream Performed By: #### S OFIANEG, COVID-19 TERE #### [facility] [address] [place] [address] Specificy [place],Urine 1.030 Normal 1.001-1.030 [facility] Comment on above: Order Comment: Name Collection Type:: Clean-Voided Midstream Performed By: #### S OFIANEG, COVID-19 TERE #### [facility] [address] [place] [address] [place] Squamous Epithelial Cell,Urine 3-4 High 0-2 [facility] Comment on above: Order Comment: Name Collection Type:: Clean-Voided Midstream Performed By: #### S OFIANEG, COVID-19 TERE #### [facility] [address] [place] [address] Uric Acid Crystals,Urine 3+ Normal [facility] Comment on above: Order Comment: Name Collection Type:: Clean-Voided Midstream Performed By: #### S OFIANEG, COVID-19 TERE #### [facility] [address] [place] [address] Urobilinogen,Urine Normal Normal Normal [facility] Comment on above: Order Comment: Name Collection Type:: Clean-Voided Midstream Performed By: #### S WARERNSANDRA COVID-19 TERE #### [facility] [address] [place] [address] [place] WBC,Urine 10-19 High 0-4 [facility] Comment on above: Order Comment: Name Collection Type:: Clean-Voided Midstream Performed By: #### S WARRENSANDRA COVID-19 TERE #### [facility] [address] [place] [address] [place] Fine granular cast count in urine sediment by microscopy (number/low power field )Ordered By: Reggie Quintana on 05-31-2022 Fine Granular Casts LM.LPF (Urine sed) [#/Area] 1-2 [LPF] 0-1 [facility] Lipid Panelon 05-31-2022 Cholesterol [Mass/Vol] 139 mg/dL Low 140-200 [facility] Comment on above: Result Comment: Chol less than 200 mg/dl low risk Chol 201-239 mg/dl borderline risk Chol 240 mg/dl and greater high risk Performed By: #### S WARRENSANDRA COVID-19 TERE #### [facility] [address] Cholesterol in HDL [Mass/Vol] 73 mg/dL Normal 35-85 [facility] Comment on above: Result Comment: HDL CHOL ATP-III CLASSIFICATION Cardiovascular Risk HDL > or equal to 60 mg/dL LOW HDL < 40 mg/dL HIGH Performed By: #### S DEANN COVID-19 TERE #### [facility] [address] [place] [address] [place] Cholesterol.total/Veronica sterol in HDL [Mass ratio] 1.9 {ratio} Normal <5.0 [facility] Comment on above: Performed By: #### S WARRENSANDRA COVID-19 TERE #### [facility] [address] [place] [address] [place] LDL Cholesterol,Calculated 50 mg/dL Normal 0-100 [facility] Comment on above: Result Comment: LDL ATP III CLASSIFICATION LDL less than 100 mg/dL Optimal LDL 100-129 mg/dL Near or above optimal LDL 130-159 mg/dL Borderline high LDL 160-189 mg/dL High LDL greater than 189 mg/dL Very high Performed By: #### S ISATUHEIDI COVID-19 TERE #### [facility] [address] Triglyceride w/Reflex 81 mg/dL Normal 35-149 [facility] Comment on above: Result Comment: TRIG ATP III CLASSIFICATION TRIG less than 150 mg/dL Normal TRIG 150-199 mg/dL Borderline high TRIG 200-500 mg/dL High TRIG greater than 500 mg/dL Very high Standard traceable to the Center for Disease Conrtrol and Prevention (CDC) test method. Performed By: #### S ISATUHEIDI, COVID-19 TERE #### [facility] [address] VLDL CHOLESTEROL 16 mg/dL Normal [facility] Comment on above: Performed By: #### S ISATUHEIDI COVID-19 TERE #### [facility] [address] Mucus LM Ql (Urine sed)Order ed By: Reggie Quintana on 05-31-2022 Mucus Ql (Urine sed) 4+ [LPF] [facility] No Panel InformationOrdered By: Reggie Quintana on 05-31-2022 25-Hydroxy Vitamin D Total 13.1 ng/mL 30-100 [facility] Comment on above: VITAMIN D STATUS 25( [...] Cholesterol in HDL [Mass/Vol] 73 mg/dL 35-85 [facility] Comment on above: HDL CHOL ATP-III CLA SSIFICATION Cardiovascular RiskHDL > or equal to 60 mg/dL LOWHDL < 40 mg/dL HIGH Serum or plasma total choles terol/high density lipoprotein (HDL) cholesterol mass ratOrdered By: Reggie Quintana on 05-31-2022 Cholesterol.total/Veronica sterol in HDL [Mass ratio] 1.9 {ratio} <5.0 [facility] Thyroid Stim Hormone w/Rflxo n 05-31-2022 Thyroid Stim Hormone w/Rflx 2.75 u[iU]/mL Normal 0.45-5.33 [facility] Comment on above: Performed By: #### S ALLISON ZACARIAS- TERE #### [facility] [address] [place] [address] Triglyceride [Mass/volume] i n Serum or PlasmaOrdered By: Reggie Quintana on 05-31-2022 Triglyceride [Mass/Vol] 81 mg/dL 35-149 [facility] Comment on above: TRIG ATP III CLASSIF ICATIONTRIG less than 150 mg/dL NormalTRIG 150-199 mg/dL Borderline highTRIG 200-500 mg/dL High TRIG greater than 500 mg/dL Very highStandard traceable to the Center for Disease Conrtrol and Prevention (CDC) test method. Urine Cultureon 05-31-2022 Bacteria identified Cx Nom (U) <9,000 colonies/ml mixed bacterial skin contaminants 2 Days PERFORMED BY: [place] [address] PATHOLOGIST [employer] TRACY DICKERSON M.D. Normal [facility] Comment on above: Performed By: #### S CONSTANCE ZACARIASID- TERE #### [address] Urine sediment uric acid cry stal count by microscopy (number/high power field)Ordered By: Reggie Quintana on 05-31-2022 Urate crystals LM.HPF (Urine sed) [#/Area] 3+ [HPF] [facility] Vitamin D 25 Hydroxy Totalon 05-31-2022 Vitamin D 25 Hydroxy Total 13.1 ng/mL Low 30-100 [facility] Comment on above: Result Comment: BANDAR MIN D STATUS 25(OH)VITAMIN D RANGE (ng/mL) Deficient <20 Insufficient 20 to <30 Sufficient 30 to 100 Reference: Ruiz MF,Edgar NC, Brenda FARMER, et al. Evaluation,treatment, and prevention of vitamin D deficiency; an Endocrine Society clinical practice guideline. JCEM. 2010; 96(7):1911-30. PERFORMED BY: [facility] [address] [place] [address] PATHOLOGIST [employer] TRACY DICKERSON M.D. Performed By: #### S DEANN, COVID-19 TERE #### [address] CBC AUTO DIFFon 05-30-2022 BASO # 0.0 103/ul Normal 0.0-0.1 [facility] Comment on above: Performed By: #### C BC ####[facility] [address] [place] [address]Dr. Soniya Chi Basophils/100 WBC (Bld) 0.2 % Normal 0.2-2.0 [facility] Comment on above: Performed By: #### C BC ####[facility] [address] [place] [address]Dr. Soniya Chi EO # 0.1 103/ul Normal 0.0-0.7 [facility] Comment on above: Performed By: #### C BC ####[facility] [address] [place] [address]Dr. Soniya hCi Eosinophils/100 WBC (Bld) 1.0 % Normal 0.9-7.0 [facility] Comment on above: Performed By: #### C BC ####[facility] [address] [place] [address]Dr. Soniya Chi Erythrocyte distribution width (RBC) [Ratio] 14.4 % Normal 11.0-15.0 [facility] Comment on above: Performed By: #### C BC ####[facility] [address] [place] [address]Dr. Soniya Chi Hematocrit (Bld) [Volume fraction] 30.0 % Critically low 36.0-48.0 [facility] Comment on above: Performed By: #### C BC ####[facility] [address] [place] [address]Dr. Soniya Chi Hemoglobin (Bld) [Mass/Vol] 9.7 g/dL Critically low 12.0-16.[address] [facility] Comment on above: Performed By: #### C BC ####[facility] [address] [place] [address]Dr. Soniya Chi IG # 0.04 10e3/ul Critically high 0.00-0.03 [facility] Comment on above: Performed By: #### C BC ####[facility] [address] [place] [address]Dr. Soniya Chi IG % 0.5 % Normal 0.0-0.[address] [facility] Comment on above: Performed By: #### C BC ####[facility] [address] [place] [address]Dr. Soniya Alon LYMPH # 0.8 103/ul Critically low 1.2-3.8 [facility] Comment on above: Performed By: #### C BC ####[facility] [address] [place] [address]Dr. Soniya Chi Lymphocytes/100 WBC (Bld) 10.0 % Critically low 20.5-60.[address] [facility] Comment on above: Performed By: #### C BC ####[facility] [address] [place] [address]Dr. Soniya Chi MANUAL DIFF REQ NO Normal [facility] Comment on above: Performed By: #### C BC ####[facility] [address] [place] [address]Dr. Soniya Chi MCH (RBC) [Entitic mass] 29.8 pg Normal 26.7-34.[address] [facility] Comment on above: Performed By: #### C BC ####[facility] [address] [place] [address]Dr. Soniya Chi MCHC (RBC) [Mass/Vol] 32.3 g/dL Normal 29.9-35.[address] [facility] Comment on above: Performed By: #### C BC ####[facility] [address] [place], [place] [id number]. Soniya Chi MCV (RBC) [Entitic vol] 92.3 fL Normal 81.0-99.0 [facility] Comment on above: Performed By: #### C BC ####[facility] [address] [place] [address]Dr. Soniya Chi MONO # 0.8 103/ul Normal 0.3-0.8 [facility] Comment on above: Performed By: #### C BC ####[facility] [address] [place] [address]Dr. Soniya Chi Monocytes/100 WBC (Bld) 9.4 % Normal 1.7-12.0 [facility] Comment on above: Performed By: #### C BC ####[facility] [address] [place] [address]Dr. Soniya Chi NEUT # 6.5 103/ul Normal 1.4-6.5 [facility] Comment on above: Performed By: #### C BC ####[facility] [address] [place] [address]Dr. Soniya Chi Neutrophils/100 WBC (Bld) 78.9 % Critically high 43.0-75.[address] [facility] Comment on above: Performed By: #### C BC ####[facility] [address] [place], [place] [address]Dr. Soniya Chi Platelet mean volume (Bld) [Entitic vol] 10.2 fL Normal 9.5-13.[address] [facility] Comment on above: Performed By: #### C BC ####[facility] [address] [place] [address]Dr. Soniya Chi PLT 103 103/ul Critically low 150-450 [facility] Comment on above: Performed By: #### C BC ####[facility] [address] [place] [address]Dr. Soniya Chi RBC 3.25 106/ul Critically low 4.20-5.40 [facility] Comment on above: Performed By: #### C BC ####[facility] [address] [place], [place] [id number]. Soniya Chi WBC 8.2 103/ul Normal 4.0-11.0 [facility] Comment on above: Performed By: #### C BC ####[facility] [address] [place] [address]Dr. Soniya Chi PROF 14(COMP METB)on 05-30- 022 Albumin [Mass/Vol] 2.8 g/dL Critically low 3.4-5.0 [facility] Comment on above: Performed By: #### C MP ####[facility] [address] [place] [address]Dr. Soniya Chi Albumin/Globulin [Mass ratio] 0.8 {ratio} Normal [facility] Comment on above: Performed By: #### C MP ####[facility] [address] [place], [place] [address]Dr. Soniya Chi ALP [Catalytic activity/Vol] 78 U/L Normal 46-116 [facility] Comment on above: Performed By: #### C MP ####[facility] [address] [place], [place] [address]Dr. Soniya Chi ALT [Catalytic activity/Vol] 26 U/L Normal 14-59 [facility] Comment on above: Performed By: #### C MP ####[facility] [address] [place], [place] [address]Dr. Soniya Chi Anion gap [Moles/Vol] 11.3 mmol/L Normal [facility] Comment on above: Performed By: #### C MP ####[facility] [address] [place], [place] [address]Dr. Soniya Chi AST [Catalytic activity/Vol] 35 U/L Normal 15-37 [facility] Comment on above: Performed By: #### C MP ####[facility] [address] [place], [place] [address]Dr. Soniya Chi Bilirubin [Mass/Vol] 0.9 mg/dL Normal 0.2-1.0 [facility] Comment on above: Performed By: #### C MP ####[facility] [address] [place], [place] [address]Dr. Soniya Chi Calcium [Mass/Vol] 9.2 mg/dL Normal 8.5-10.1 [facility] Comment on above: Performed By: #### C MP ####[facility] [address] [place] [address]Dr. Soniya Chi Chloride [Moles/Vol] 113 mmol/L Critically high 98-[address] [facility] Comment on above: Performed By: #### C MP ####[facility] [address] [place] [address]Dr. Soniya Chi CO2 [Moles/Vol] 26.5 mmol/L Normal 21.0-32.0 [facility] Comment on above: Performed By: #### C MP ####[facility] [address] [place] [address]Dr. Soniya Alon Creatinine [Mass/Vol] 1.21 mg/dL Critically high 0.55-1.02 [facility] Comment on above: Performed By: #### C MP ####[facility] [address] [place], [place] [address]Dr. Soniya Chi EGFR-AF SRI LANKAN 54 mL/min/1.73m2 Critically low >=60 [facility] Comment on above: Performed By: #### C MP ####[facility] [address] [place], [place] [address]Dr. Soniya Chi EGFR-NON AF SRI LANKAN 44 mL/min/1.73m2 Critically low >=[address] [facility] Comment on above: Performed By: #### C MP ####[facility] [address] [place] [address]Dr. Soniya Alon Globulin (S) [Mass/Vol] 3.6 g/dL Normal [facility] Comment on above: Performed By: #### C MP ####[facility] [address] [place] [address]Dr. Soniya Alon Glucose [Mass/Vol] 101 mg/dL Normal 74-106 [facility] Comment on above: Performed By: #### C MP ####[facility] [address] [place], [place] [address]Dr. Soniya Chi Potassium [Moles/Vol] 3.8 mmol/L Normal 3.5-5.[address] [facility] Comment on above: Performed By: #### C MP ####[facility] [address] [place] [address]Dr. Soniya Chi Protein [Mass/Vol] 6.4 g/dL Normal 6.4-8.2 [facility] Comment on above: Performed By: #### C MP ####[facility] [address] [place] [address]Dr. Soniya Chi Sodium [Moles/Vol] 147 mmol/L Critically high 136-145 [facility] Comment on above: Performed By: #### C MP ####[facility] [address]bmvnalrwk[address] [place], [place] [address]Dr. Soniya Chi Urea nitrogen [Mass/Vol] 18.0 mg/dL Normal 7.0-18.0 [facility] Comment on above: Performed By: #### C MP ####[facility] Qdqsjrffgs[address] [place], [place] [address]Dr. Soniya Chi Urea nitrogen/Creatinine [Mass ratio] 14.9 mg/mg Normal [facility] Comment on above: Performed By: #### C MP ####[facility] Resisorcwy[address] [place], [place] [address]Dr. Soniya Chi PROF CHEM 8 (BAS METB)on Anion gap [Moles/Vol] 9.9 mmol/L Normal [facility] Comment on above: Performed By: #### B MP ####[facility] Uahfemxxkp48[address] [place] [address]Dr. Soniya Chi Calcium [Mass/Vol] 9.0 mg/dL Normal 8.5-10.1 [facility] Comment on above: Performed By: #### B MP ####[facility] Asefdbmlbx4326 [place] [address]Dr. Soniya Chi Chloride [Moles/Vol] 114 mmol/L Critically high 98-107 [facility] Comment on above: Performed By: #### B MP ####[facility] Djpfjfmbbt2570 [place] [address]Dr. Soniya Chi CO2 [Moles/Vol] 28.0 mmol/L Normal 21.0-32.0 [facility] Comment on above: Performed By: #### B MP ####[facility] Hoqovxfxxb3401 [place] [address]Dr. Soniya Chi Creatinine [Mass/Vol] 1.37 mg/dL Critically high 0.55-1.02 [facility] Comment on above: Performed By: #### B MP ####[facility] Ldbpeeaqku1472 [place] [address]Dr. Soniya Chi EGFR-AF SRI LANKAN 47 mL/min/1.73m2 Critically low >=60 [facility] Comment on above: Performed By: #### B MP ####[facility] Cdwbonzwfp3507 [place] [address]Dr. Soniya Chi EGFR-NON AF SRI LANKAN 38 mL/min/1.73m2 Critically low >=60 [facility] Comment on above: Performed By: #### B MP ####[facility] Zwgajzhvcc5392 [place] [address]Dr. Soniya Chi Glucose [Mass/Vol] 104 mg/dL Normal 74-106 [facility] Comment on above: Performed By: #### B MP ####[facility] Tgrpxunetu7380 [place] [address]Dr. Soniya Chi Potassium [Moles/Vol] 2.9 mmol/L Critically low 3.5-5.1 [facility] Comment on above: Performed By: #### B MP ####[facility] Mwqinbwuaf1092 [place] [address]Dr. Soniya Chi Sodium [Moles/Vol] 147 mmol/L Critically high 136-145 [facility] Comment on above: Performed By: #### B MP ####[facility] Bdtsvxpase3752 [place] [address]Dr. Soniya Chi Urea nitrogen [Mass/Vol] 18.0 mg/dL Normal 7.0-18.0 [facility] Comment on above: Performed By: #### B MP ####[facility] Dolbevuzei1292 [place] [address]Dr. Soniya Chi Urea nitrogen/Creatinine [Mass ratio] 13.1 mg/mg Normal [facility] Comment on above: Performed By: #### B MP ####[facility] Fuudrzmofb8508 [place] [address]Dr. Soniya Chi CBC AUTO DIFFon 05-29-2022 BASO # 0.0 103/ul Normal 0.0-0.1 [facility] Comment on above: Performed By: #### C BC ####[facility] Ahbubujupw353[address] [place], [place] [address]Dr. Gypsyjuan Chi Basophils/100 WBC (Bld) 0.2 % Normal 0.2-2.0 [facility] Comment on above: Performed By: #### C BC ####[facility] Gasbvtekfu447[address] [place], [place] [address]Dr. Soniya Chi EO # 0.0 103/ul Normal 0.0-0.7 [facility] Comment on above: Performed By: #### C BC ####[facility] Vftuzxgizi499[address] [place], [place] [address]Dr. Soniya Chi Eosinophils/100 WBC (Bld) 0.5 % Critically low 0.9-7.0 [facility] Comment on above: Performed By: #### C BC ####[facility] Mzjuzjkfnf[address] [place], [place] [address]Dr. Soniya Chi Erythrocyte distribution width (RBC) [Ratio] 14.3 % Normal 11.0-15.0 [facility] Comment on above: Performed By: #### C BC ####[facility] Kueehnboxf[address] [place], [place] [address]Dr. Soniya Chi Hematocrit (Bld) [Volume fraction] 30.1 % Critically low 36.0-48.0 [facility] Comment on above: Performed By: #### C BC ####[facility] Hiartgnizj9710[address] [place], [place] [address]Dr. Soniya Chi Hemoglobin (Bld) [Mass/Vol] 9.7 g/dL Critically low 12.0-16.0 [facility] Comment on above: Performed By: #### C BC ####[facility] Mmpkllouly6753 [place] [address]Dr. Soniya Chi IG # 0.02 10e3/ul Normal 0.00-0.03 [facility] Comment on above: Performed By: #### C BC ####[facility] Mgixoqwmmp9078 [place] [address]Dr. Soniya Chi IG % 0.3 % Normal 0.0-0.5 [facility] Comment on above: Performed By: #### C BC ####[facility] Ixvcqoetag8031 [place] [address]DrKarolina Chi LYMPH # 0.9 103/ul Critically low 1.2-3.8 [facility] Comment on above: Performed By: #### C BC ####[facility] Zildebevog4300 [place] [address]DrKarolina Chi Lymphocytes/100 WBC (Bld) 13.8 % Critically low 20.5-60.0 [facility] Comment on above: Performed By: #### C BC ####[facility] Kxjuainbfi6156 [place] [address]DrKarolina Chi MANUAL DIFF REQ NO Normal [facility] Comment on above: Performed By: #### C BC ####[facility] Dqfgmbsaxp7681 [place] [phone]. Soniya Chi MCH (RBC) [Entitic mass] 29.8 pg Normal 26.7-34.0 [facility] Comment on above: Performed By: #### C BC ####[facility] Ejlgoeucup2873 [place] [address]Dr. Soniya Chi MCHC (RBC) [Mass/Vol] 32.2 g/dL Normal 29.9-35.2 [facility] Comment on above: Performed By: #### C BC ####[facility] Jjqjjfqbap5628 [place] [address]DrKarolina Chi MCV (RBC) [Entitic vol] 92.6 fL Normal 81.0-99.0 [facility] Comment on above: Performed By: #### C BC ####[facility] Soqomveprf7987 [place] [address]Dr. Soniya Chi MONO # 0.7 103/ul Normal 0.3-0.8 [facility] Comment on above: Performed By: #### C BC ####[facility] Besamuyrzz6108 [place] [address]Dr. Soniya Chi Monocytes/100 WBC (Bld) 10.5 % Normal 1.7-12.0 [facility] Comment on above: Performed By: #### C BC ####[facility] Pgcjmtogle0908 [place] [address]Dr. Soniya Chi NEUT # 4.8 103/ul Normal 1.4-6.5 [facility] Comment on above: Performed By: #### C BC ####[facility] Xehfalkeab7265 [place] [address]Dr. Soniya Chi Neutrophils/100 WBC (Bld) 74.7 % Normal 43.0-75.0 [facility] Comment on above: Performed By: #### C BC ####[facility] Jzluprgyaf4774 [place] [address]Dr. Soniya Chi Platelet mean volume (Bld) [Entitic vol] 10.6 fL Normal 9.5-13.5 [facility] Comment on above: Performed By: #### C BC ####[facility] Drhzypqfwd2897 [place] [address]Dr. Soniya Chi PLT 114 103/ul Critically low 150-450 [facility] Comment on above: Performed By: #### C BC ####[facility] Etawtfbtmq3745 [place] [address]Dr. Soniya Chi RBC 3.25 106/ul Critically low 4.20-5.40 [facility] Comment on above: Performed By: #### C BC ####[facility] Rqdfehzlwq1036 [place] [address]Dr. Soniya Chi WBC 6.4 103/ul Normal 4.0-11.0 [facility] Comment on above: Performed By: #### C BC ####[facility] Bglfjcrsef8931 [place] [address]Dr. Soniya Chi CORTISOLon 05-29-2022 Cortisol 24.0 ug/dL Normal [facility] Comment on above: Result Comment: Javi isol AM 6.2 - 19.4 Cortisol PM 2.3 - 11.9 Performed By: #### C ORTISO ####[facility] X[address]ymgqwiya24[address] [place], [place] [address]Dr. Soniya Chi CULTURE URINEon 05-29-2022 CULTURE URINE Normal [facility] Comment on above: Performed By: #### U RCX ####[facility] Jvgepecnbg007[address] [place], [place] [address]Dr. Soniya Chi PROF CHEM 8 (BAS METB)on Anion gap [Moles/Vol] 11.9 mmol/L Normal [facility] Comment on above: Performed By: #### B MP ####[facility] Jaoejmlnnq99[address] [place], [place] [address]Dr. Soniya Chi Calcium [Mass/Vol] 9.6 mg/dL Normal 8.5-10.1 [facility] Comment on above: Performed By: #### B MP ####[facility] Clvotpluzx008[address] [place], [place] [address]Dr. Soniya Chi Chloride [Moles/Vol] 110 mmol/L Critically high 98-107 [facility] Comment on above: Performed By: #### B MP ####[facility] Hpmwbhnchy065[address] [place], [place] [address]Dr. Soniya Chi CO2 [Moles/Vol] 25.4 mmol/L Normal 21.0-32.0 [facility] Comment on above: Performed By: #### B MP ####[facility] Pczycuqnoe03[address] [place], [place] [address]Dr. Soinya Chi Creatinine [Mass/Vol] 1.24 mg/dL Critically high 0.55-1.02 [facility] Comment on above: Performed By: #### B MP ####[facility] Bvlkqbgxna1950[address] [place], [place] [address]Dr. Soniya Chi EGFR-AF SRI LANKAN 52 mL/min/1.73m2 Critically low >=60 [facility] Comment on above: Performed By: #### B MP ####[facility] Fwkkdbvmum8792 [place] [address]Dr. Soniya Chi EGFR-NON AF SRI LANKAN 43 mL/min/1.73m2 Critically low >=60 [facility] Comment on above: Performed By: #### B MP ####[facility] Ggrvsrxqjo6069 [place] [address]Dr. Soniya Chi Glucose [Mass/Vol] 111 mg/dL Critically high 74-106 [facility] Comment on above: Performed By: #### B MP ####[facility] Emdjazsjow350[address] [place], [place] [address]Dr. Soniya Chi Potassium [Moles/Vol] 3.3 mmol/L Critically low 3.5-5.1 [facility] Comment on above: Performed By: #### B MP ####[facility] Kequjqxyqz[address] [place], [place] [address]Dr. Soniya Alon Sodium [Moles/Vol] 144 mmol/L Normal 136-145 [facility] Comment on above: Performed By: #### B MP ####[facility] Unkuvhvvam06[address] [place], [place] [address]Dr. Soniya Chi Urea nitrogen [Mass/Vol] 17.0 mg/dL Normal 7.0-18.0 [facility] Comment on above: Performed By: #### B MP ####[facility] Suaqalghpb888[address] [place], [place] [address]Dr. Soniya Alon Urea nitrogen/Creatinine [Mass ratio] 13.7 mg/mg Normal [facility] Comment on above: Performed By: #### B MP ####[facility] Alsvbplrrc499[address] [place], [place] [address]Dr. Soniya Alon CBC AUTO DIFFon 05-28-2022 BASO # 0.0 103/ul Normal 0.0-0.1 [facility] Comment on above: Performed By: #### C BC ####[facility] Tfedcsdklw7171 [place] [address]Dr. Soniya Chi Basophils/100 WBC (Bld) 0.2 % Normal 0.2-2.0 [facility] Comment on above: Performed By: #### C BC ####[facility] Lavjrqextg578[address] [place], [place] [address]Dr. Soniya Chi EO # 0.0 103/ul Normal 0.0-0.[address] [facility] Comment on above: Performed By: #### C BC ####[facility] Laqcqfvalw6[address] [place], [place] [address]Dr. Soniya Chi Eosinophils/100 WBC (Bld) 0.3 % Critically low 0.9-7.0 [facility] Comment on above: Performed By: #### C BC ####[facility] Nbxgoduuiz26[address] [place], [place] [address]Dr. Soniya Chi Erythrocyte distribution width (RBC) [Ratio] 14.4 % Normal 11.0-15.0 [facility] Comment on above: Performed By: #### C BC ####[facility] Onlanlrnoz220[address] [place], [place] [address]Dr. Soniya Chi Hematocrit (Bld) [Volume fraction] 30.3 % Critically low 36.0-48.0 [facility] Comment on above: Performed By: #### C BC ####[facility] Yaogiapaiz[address] [place], [place] [address]Dr. Soniya Chi Hemoglobin (Bld) [Mass/Vol] 9.9 g/dL Critically low 12.0-16.0 [facility] Comment on above: Performed By: #### C BC ####[facility] Srdnwunlkd[address] [place], [place] [address]Dr. Soniya Chi IG # 0.02 10e3/ul Normal 0.00-0.[address] [facility] Comment on above: Performed By: #### C BC ####[facility] [address]ca[address] [place], [place] [address]Dr. Soniya Chi IG % 0.3 % Normal 0.0-0.[address] [facility] Comment on above: Performed By: #### C BC ####[facility] Ktkcoyrxad5115 [place], [place] [address]Zl. Soniya Alon LYMPH # 0.7 103/ul Critically low 1.2-3.8 [facility] Comment on above: Performed By: #### C BC ####[facility] Vihpkhbzeq4004 [place], [place] [address]Dn. Soniya Alon Lymphocytes/100 WBC (Bld) 11.7 % Critically low 20.5-60.0 [facility] Comment on above: Performed By: #### C BC ####[facility] Wrrmllekkg2518 [place] [address]Dr. Gypsyjuan Chi MANUAL DIFF REQ NO Normal [facility] Comment on above: Performed By: #### C BC ####[facility] Pfpgexllzg2647 [place] [address]Dr. Soniya Alon MCH (RBC) [Entitic mass] 29.8 pg Normal 26.7-34.0 [facility] Comment on above: Performed By: #### C BC ####[facility] Ylhxxhoaws4201 [place] [address]Dr. Soniya Alon MCHC (RBC) [Mass/Vol] 32.7 g/dL Normal 29.9-35.2 [facility] Comment on above: Performed By: #### C BC ####[facility] Rayjwfoshc2972 [place] [address]Dr. Soniya Chi MCV (RBC) [Entitic vol] 91.3 fL Normal 81.0-99.0 [facility] Comment on above: Performed By: #### C BC ####[facility] Eopkkvjydl5103 [place] [address]Dr. Gypsyjuan Alon MONO # 0.5 103/ul Normal 0.3-0.8 [facility] Comment on above: Performed By: #### C BC ####[facility] Ocnnhzdlqr3414 [place] [address]Dr. Gypsyjuan Chi Monocytes/100 WBC (Bld) 8.3 % Normal 1.7-12.0 [facility] Comment on above: Performed By: #### C BC ####[facility] Wbbcrjfhpu9883 [place], [place] [address]Jn. Soniya Chi NEUT # 4.8 103/ul Normal 1.4-6.5 [facility] Comment on above: Performed By: #### C BC ####[facility] Fayebxkllg2123 [place], [place] [address]Sq. Soniya Chi Neutrophils/100 WBC (Bld) 79.2 % Critically high 43.0-75.0 [facility] Comment on above: Performed By: #### C BC ####[facility] Ymadhxmzck2531 [place] [address]Dr. Soniya Chi Platelet mean volume (Bld) [Entitic vol] 10.4 fL Normal 9.5-13.5 [facility] Comment on above: Performed By: #### C BC ####[facility] Qazsthufnh4505 [place] [address]Dr. Soniya Chi PLT 112 103/ul Critically low 150-450 [facility] Comment on above: Performed By: #### C BC ####[facility] Mhdebdikkp6579 [place] [address]Dr. Soniya Chi RBC 3.32 106/ul Critically low 4.20-5.40 [facility] Comment on above: Performed By: #### C BC ####[facility] Lbxpizzemk1413 [place] [address]Dr. Soniya Chi WBC 6.1 103/ul Normal 4.0-11.0 [facility] Comment on above: Performed By: #### C BC ####[facility] Gmsplbussa4880 [place] [address]Dr. Soniya Chi BASO # 0.0 103/ul Normal 0.0-0.1 [facility] Comment on above: Performed By: #### C BC ####[facility] Nwchjfptha1792 [place] [address]Dr. Soniya Chi Basophils/100 WBC (Bld) 0.2 % Normal 0.2-2.0 [facility] Comment on above: Performed By: #### C BC ####[facility] Zuypxllqya7904 [place] [address]Dr. Soniya Chi EO # 0.1 103/ul Normal 0.0-0.[address] [facility] Comment on above: Performed By: #### C BC ####[facility] Wpnhikluuw2483 [place] [address]Dr. Soniya Chi Eosinophils/100 WBC (Bld) 1.1 % Normal 0.9-7.[address] [facility] Comment on above: Performed By: #### C BC ####[facility] Elvcowdrrl5989 [place] [address]Dr. Soniya Chi Erythrocyte distribution width (RBC) [Ratio] 14.1 % Normal 11.0-15.[address] [facility] Comment on above: Performed By: #### C BC ####[facility] Twetzdghwc[address] [place], [place] [address]Dr. Soniya Chi Hematocrit (Bld) [Volume fraction] 31.3 % Critically low 36.0-48.0 [facility] Comment on above: Performed By: #### C BC ####[facility] Tenhiczyal[address] [place], [place] [address]Dr. Soniya Chi Hemoglobin (Bld) [Mass/Vol] 10.5 g/dL Critically low 12.0-16.[address] [facility] Comment on above: Performed By: #### C BC ####[facility] Nqalaxolhl6659 [place] [address]Dr. Soniya Chi IG # 0.02 10e3/ul Normal 0.00-0.[address] [facility] Comment on above: Performed By: #### C BC ####[facility] Trzrszwhty0259 [place] [address]Dr. Soniya Chi IG % 0.3 % Normal 0.0-0.[address] [facility] Comment on above: Performed By: #### C BC ####[facility] Sffuurdalg55[address] [place], [place] [address]Dr. Soniya Chi LYMPH # 0.8 103/ul Critically low 1.2-3.8 [facility] Comment on above: Performed By: #### C BC ####[facility] Eiekixlvrl5064 [place] [address]Dr. Soniya Alon Lymphocytes/100 WBC (Bld) 13.4 % Critically low 20.5-60.0 [facility] Comment on above: Performed By: #### C BC ####[facility] Odgkxcxudt2549 [place] [address]Dr. Gypsyjuan Chi MANUAL DIFF REQ NO Normal [facility] Comment on above: Performed By: #### C BC ####[facility] Pnqbbwuqug0147 [place] [address]Dr. Gypsyjuan Chi MCH (RBC) [Entitic mass] 30.1 pg Normal 26.7-34.0 [facility] Comment on above: Performed By: #### C BC ####[facility] Qjooudgqmc1065 [place] [address]Dr. Soniya Alon MCHC (RBC) [Mass/Vol] 33.5 g/dL Normal 29.9-35.2 [facility] Comment on above: Performed By: #### C BC ####[facility] Qcnpygtxkv0097 [place] [address]Dr. Gypsyjuan Chi MCV (RBC) [Entitic vol] 89.7 fL Normal 81.0-99.0 [facility] Comment on above: Performed By: #### C BC ####[facility] Btfraormed2209 [place] [address]Dr. Soniya Chi MONO # 0.6 103/ul Normal 0.3-0.8 [facility] Comment on above: Performed By: #### C BC ####[facility] Gvfyvphknf0035 [place] [address]Dr. Gypsyjuan Chi Monocytes/100 WBC (Bld) 9.8 % Normal 1.7-12.0 [facility] Comment on above: Performed By: #### C BC ####[facility] Dcuxsmwpuz[address] [place], [place] [address]Dr. Soniya Chi NEUT # 4.6 103/ul Normal 1.4-6.5 [facility] Comment on above: Performed By: #### C BC ####[facility] Qkbwuaelop6148 [place] [address]Dr. Soniya Chi Neutrophils/100 WBC (Bld) 75.2 % Critically high 43.0-75.0 [facility] Comment on above: Performed By: #### C BC ####[facility] Yiyjlcvnjt5293 [place] [address]Dr. Soniya Chi Platelet mean volume (Bld) [Entitic vol] 10.6 fL Normal 9.5-13.5 [facility] Comment on above: Performed By: #### C BC ####[facility] Bzzascxbom4579 [place] [address]Dr. Soniya Chi PLT 128 103/ul Critically low 150-450 [facility] Comment on above: Performed By: #### C BC ####[facility] Rowpesnybv3825 [place] [address]Dr. Soniya Chi RBC 3.49 106/ul Critically low 4.20-5.40 [facility] Comment on above: Performed By: #### C BC ####[facility] Pepuvumxvf7036 [place] [address]Dr. Soniya Chi WBC 6.1 103/ul Normal 4.0-11.0 [facility] Comment on above: Performed By: #### C BC ####[facility] Awkmoelgcw2172 [place] [address]Dr. Soniya Chi FREE T4on 05-28-2022 Free T4 [Mass/Vol] 0.93 ng/dL Normal 0.76-1.46 [facility] Comment on above: Performed By: #### B 12FOL, FT4, FETIBC ####[facility] Drlfsfewso4719 [place] [address]Dr. Soniya Chi IRON AND TIBCon 05-28-2022 % SATURATION 32.6 % Normal [facility] Comment on above: Performed By: #### B 12FOL, FT4, FETIBC ####[facility] Quoqcksibq6905 [place] [address]Dr. Soniya Chi Iron [Mass/Vol] 94.0 ug/dL Normal 50.0-170.0 [facility] Comment on above: Performed By: #### B 12FOL, FT4, FETIBC ####[facility] Dpenyhcbqm4877 [place] [address]Dr. Soniya Chi TIBC DIRECT 288.0 ug/dL Normal 250.0-450.0 [facility] Comment on above: Performed By: #### B 12FOL, FT4, FETIBC ####[facility] Veqsudfmip3788 [place] [address]Dr. Soniya Chi POINT OF CARE GLUCOSEon 12-2 Glucose [Mass/Vol] 123 mg/dL Critically high 74-106 [facility] Comment on above: Performed By: #### P OCGLUC ####[facility] [address]qfxiczk[address] [place], [place] [address]Dr. Soniya Chi PROF CHEM 8 (BAS METB)on Anion gap [Moles/Vol] 11.2 mmol/L Normal [facility] Comment on above: Performed By: #### B MP ####[facility] Jehwaynuyi7625 [place] [address]Dr. Soniya Chi Calcium [Mass/Vol] 9.0 mg/dL Normal 8.5-10.1 [facility] Comment on above: Performed By: #### B MP ####[facility] Ixaemxayxp3825 [place] [address]Dr. Soniya Chi Chloride [Moles/Vol] 108 mmol/L Critically high 98-107 [facility] Comment on above: Performed By: #### B MP ####[facility] Rgyxdjbkyw0827 [place] [address]Dr. Soniya Chi CO2 [Moles/Vol] 26.4 mmol/L Normal 21.0-32.0 [facility] Comment on above: Performed By: #### B MP ####[facility] Lkduljdlzl5512 [place] [address]Dr. Soniya Chi Creatinine [Mass/Vol] 1.30 mg/dL Critically high 0.55-1.02 [facility] Comment on above: Performed By: #### B MP ####[facility] Oksohqktay3712 [place] [address]Dr. Soniya Chi EGFR-AF SRI LANKAN 50 mL/min/1.73m2 Critically low >=60 [facility] Comment on above: Performed By: #### B MP ####[facility] Eodrzamvmg1168 [place] [address]Dr. Soniya Alon EGFR-NON AF SRI LANKAN 41 mL/min/1.73m2 Critically low >=60 [facility] Comment on above: Performed By: #### B MP ####[facility] Hajkucrdjl3750 [place] [phone]. Soniya Chi Glucose [Mass/Vol] 115 mg/dL Critically high 74-106 [facility] Comment on above: Performed By: #### B MP ####[facility] Oqfmwpcisv3030 [place] [address]Dr. Soniya Chi Potassium [Moles/Vol] 3.6 mmol/L Normal 3.5-5.1 [facility] Comment on above: Performed By: #### B MP ####[facility] Muyhocebab4538 [place] [address]Dr. Soniya Chi Sodium [Moles/Vol] 142 mmol/L Normal 136-145 [facility] Comment on above: Performed By: #### B MP ####[facility] Zpjcolgzgn2232 [place] [address]Dr. Soniya Chi Urea nitrogen [Mass/Vol] 20.0 mg/dL Critically high 7.0-18.0 [facility] Comment on above: Performed By: #### B MP ####[facility] Svgusavdjv1023 [place] [address]Dr. Soniya Chi Urea nitrogen/Creatinine [Mass ratio] 15.4 mg/mg Normal [facility] Comment on above: Performed By: #### B MP ####[facility] Drobmxmkuy[address] [place] [phone]. Soniya Chi Anion gap [Moles/Vol] 12.7 mmol/L Normal [facility] Comment on above: Performed By: #### B MP ####[facility] Kkceckynia[address] [place] [address]Dr. Soniya Chi Calcium [Mass/Vol] 9.1 mg/dL Normal 8.5-10.1 [facility] Comment on above: Performed By: #### B MP ####[facility] Kocquatzio[address] [place] [address]Dr. Soniya Chi Chloride [Moles/Vol] 107 mmol/L Normal 98-[address] [facility] Comment on above: Performed By: #### B MP ####[facility] Mcruyxpjyu[address] [place], [place] [address]Dr. Soniya Chi CO2 [Moles/Vol] 27.7 mmol/L Normal 21.0-32.0 [facility] Comment on above: Performed By: #### B MP ####[facility] Eusetdjrhr[address] [place], [place] [address]Dr. Soniya Chi Creatinine [Mass/Vol] 1.25 mg/dL Critically high 0.55-1.02 [facility] Comment on above: Performed By: #### B MP ####[facility] Ggilazuwcl[address] [place], [place] [address]Dr. Soniya Chi EGFR-AF SRI LANKAN 52 mL/min/1.73m2 Critically low >=[address] [facility] Comment on above: Performed By: #### B MP ####[facility] Zhudlsgwqn[address] [place], [place] [address]Dr. Soniya Alon EGFR-NON AF SRI LANKAN 43 mL/min/1.73m2 Critically low >=[address] [facility] Comment on above: Performed By: #### B MP ####[facility] Gvnqsmepkg[address] [place], [place] [address]Dr. Soniya Chi Glucose [Mass/Vol] 77 mg/dL Normal 74-106 [facility] Comment on above: Performed By: #### B MP ####[facility] Gfjyzuqsxf[address] [place], [place] [address]Dr. Soniya Chi Potassium [Moles/Vol] 3.4 mmol/L Critically low 3.5-5.1 [facility] Comment on above: Performed By: #### B MP ####[facility] Ibwosssyfp[address] [place] [address]Dr. Soniya Chi Sodium [Moles/Vol] 144 mmol/L Normal 136-145 [facility] Comment on above: Performed By: #### B MP ####[facility] Webrkcmyyk[address] [place] [address]Dr. Soniya Chi Urea nitrogen [Mass/Vol] 21.0 mg/dL Critically high 7.0-18.0 [facility] Comment on above: Performed By: #### B MP ####[facility] Vjsxedelby57[address] [place] [address]Dr. Soniya Chi Urea nitrogen/Creatinine [Mass ratio] 16.8 mg/mg Normal [facility] Comment on above: Performed By: #### B MP ####[facility] Mmeshlbxex[address] [place], [place] [address]Dr. Soniya Chi VIT B12 AND FOLATEon 022 Cobalamin (Vitamin B12) [Mass/Vol] 500.0 pg/mL Normal 193.0-986.0 [facility] Comment on above: Performed By: #### B 12FOL, FT4, FETIBC ####[facility] Ybwpymhxqw[address] [place], [place] [address]Dr. Soniya Chi FOLATE 10.30 ng/mL Normal 8.60-58.90 [facility] Comment on above: Performed By: #### B 12FOL, FT4, FETIBC ####[facility] Euebzksrca17[address] [place] [address]Dr. Soniya Chi AMMONIAon 05-27-2022 Ammonia (P) [Moles/Vol] 15 umol/L Normal 11-32 [facility] Comment on above: Performed By: #### A MM ####[facility] T[address]wjdqwum[address] [place], [place] [address]Dr. Soniya Chi CBC AUTO DIFFon 05-27-2022 BASO # 0.0 103/ul Normal 0.0-0.1 [facility] Comment on above: Performed By: #### C BC ####[facility] Ccilgxdmdn6[address] [place] [address]Dr. Soniya Chi Basophils/100 WBC (Bld) 0.4 % Normal 0.2-2.0 [facility] Comment on above: Performed By: #### C BC ####[facility] Sqyrsqaouu8134 [place] [address]Dr. Soniya Chi EO # 0.1 103/ul Normal 0.0-0.[address] [facility] Comment on above: Performed By: #### C BC ####[facility] Qjcbnsnswg7[address] [place], [place] [address]Dr. Soniya Chi Eosinophils/100 WBC (Bld) 1.5 % Normal 0.9-7.0 [facility] Comment on above: Performed By: #### C BC ####[facility] Voyfszpxdv52[address] [place], [place] [address]Dr. Soniya Chi Erythrocyte distribution width (RBC) [Ratio] 14.2 % Normal 11.0-15.0 [facility] Comment on above: Performed By: #### C BC ####[facility] Vltmslkapz097[address] [place], [place] [address]Dr. Soniya Chi Hematocrit (Bld) [Volume fraction] 36.0 % Normal 36.0-48.0 [facility] Comment on above: Performed By: #### C BC ####[facility] Rcvnxhwwsw[address] [place], [place] [address]Dr. Soniya Chi Hemoglobin (Bld) [Mass/Vol] 11.9 g/dL Critically low 12.0-16.0 [facility] Comment on above: Performed By: #### C BC ####[facility] Obfcxxmvzo87[address] [place], [place] [address]Dr. Soniya Chi IG # 0.02 10e3/ul Normal 0.00-0.[address] [facility] Comment on above: Performed By: #### C BC ####[facility] Prvgwxrkdf[address] [place], [place] [address]Dr. Soniya Chi IG % 0.4 % Normal 0.0-0.[address] [facility] Comment on above: Performed By: #### C BC ####[facility] Zwpuaqcexf8184 [place] [address]Dr. Soniya Chi LYMPH # 1.0 103/ul Critically low 1.2-3.8 [facility] Comment on above: Performed By: #### C BC ####[facility] Rzijngemcl2367 [place] [address]Dr. Soniya Alon Lymphocytes/100 WBC (Bld) 18.1 % Critically low 20.5-60.0 [facility] Comment on above: Performed By: #### C BC ####[facility] Esbryjqhrr4203 [place] [address]Dr. Gypsyjuan Chi MANUAL DIFF REQ NO Normal [facility] Comment on above: Performed By: #### C BC ####[facility] Txkuormxze4232 [place] [address]Dr. Soniya Alon MCH (RBC) [Entitic mass] 29.9 pg Normal 26.7-34.0 [facility] Comment on above: Performed By: #### C BC ####[facility] Liudpqdehd7256 [place] [address]Dr. Soniya Chi MCHC (RBC) [Mass/Vol] 33.1 g/dL Normal 29.9-35.2 [facility] Comment on above: Performed By: #### C BC ####[facility] Iwrycmccah0149 [place] [address]Dr. Soniya Chi MCV (RBC) [Entitic vol] 90.5 fL Normal 81.0-99.0 [facility] Comment on above: Performed By: #### C BC ####[facility] Txkmmdlhmz1135 [place] [address]Dr. Soniya Chi MONO # 0.3 103/ul Normal 0.3-0.8 [facility] Comment on above: Performed By: #### C BC ####[facility] Phioyfxwtb3911 [place] [address]Dr. Soniya Chi Monocytes/100 WBC (Bld) 5.4 % Normal 1.7-12.0 [facility] Comment on above: Performed By: #### C BC ####[facility] Ozcuzgbfsp6701 [place] [address]Dr. Soniya Chi NEUT # 4.0 103/ul Normal 1.4-6.5 [facility] Comment on above: Performed By: #### C BC ####[facility] Hvfhsaugys6511 [place] [address]Dr. Soniya Chi Neutrophils/100 WBC (Bld) 74.2 % Normal 43.0-75.0 [facility] Comment on above: Performed By: #### C BC ####[facility] Rldibmxcmq1515 [place] [address]Dr. Soniya Chi Platelet mean volume (Bld) [Entitic vol] 10.0 fL Normal 9.5-13.5 [facility] Comment on above: Performed By: #### C BC ####[facility] Nruaqetesm4305 [place] [address]Dr. Soniya Chi PLT 140 103/ul Critically low 150-450 [facility] Comment on above: Performed By: #### C BC ####[facility] Yahsrpsgsl2445 [place] [address]Dr. Soniya Chi RBC 3.98 106/ul Critically low 4.20-5.40 [facility] Comment on above: Performed By: #### C BC ####[facility] Umzrkjnsxa4390 [place] [address]Dr. Soniya Chi WBC 5.4 103/ul Normal 4.0-11.[address] [facility] Comment on above: Performed By: #### C BC ####[facility] Cheuodgyql34[address] [place] [address]Dr. Soniya Chi CT STROKE HEAD WOon 05-27-[address] STROKE HEAD WO Normal [facility] CTA HEAD WO W CONon 05-27-20 CTA HEAD WO W CON Normal [facility] CULTURE BLOODon 05-27-2022 Microscopic examination of blood, culture Culture Observations: NO GROWTH AT [address] [facility] Comment on above: Performed By: #### B LDCX2 ####[facility] [address]ywjpft[address] [place], [place] [address]Dr. Soniya Chi Microscopic examination of blood, culture Culture Observations: NO GROWTH AT [address] [facility] Comment on above: Performed By: #### B LDCX1 ####[facility] Unpmbpjqst[address] [place], [place] [address]Dr. Soniya Chi Covid-19 PCR (CVDTB)on 05-03 SARS-CoV-2 (COVID-19) RNA DORIAN+probe Ql (Unsp spec) Not detected Normal NOT DETECTED [facility] Comment on above: Result Comment: When diagnostic [...] for this test is supported by the [place] of Health and Human Service's declaration that [...] be used). Performed By: #### C VDTBH ####[facility] Cyyrtsszup217[address] [place], [place] [address]Dr. Soniya Chi ER URINE PROFILEon 2 Bilirubin Ql (U) Negative Normal NEGATIVE [facility] Comment on above: Performed By: #### MARCOS WELDON ####[facility] Mwotovamgb68[address] [place], [place] [address]Dr. Soniya Chi Clarity (U) CLEAR Normal CLEAR [facility] Comment on above: Performed By: #### E MARCOS CARTER ####[facility] Fzycxwqkjb430[address] [place], [place] [address]Dr. Soniya Chi Color (U) LT. YELLOW Normal YELLOW [facility] Comment on above: Performed By: #### MARCOS WELDON ####[facility] Rvssgiboxk[address] [place], [place] [address]Dr. Soniya GORDON A micrscopic examination will be performed if indicated. Normal [facility] Comment on above: Performed By: #### MARCOS WELDON ####[facility] Fvlcpqglct[address] [place] [address]Dr. Soniya Chi Glucose Ql (U) Negative Normal NEGATIVE [facility] Comment on above: Performed By: #### DENIZ WELDONRO ####[facility] Dnxfzvunyg117[address] [place], [place] [address]Dr. Soniya Chi Hemoglobin Ql (U) Negative Normal NEGATIVE [facility] Comment on above: Performed By: #### MARCOS WELDON ####[facility] Zjnoqhhynr[address] [place], [place] [address]Dr. Soniya Chi Ketones Ql (U) Negative Normal NEGATIVE [facility] Comment on above: Performed By: #### DENIZ WELDONRO ####[facility] Ugjlujduls85[address] [place], [place] [address]Dr. Soniya Chi LEUKOCYTES SMALL Abnormal NEGATIVE [facility] Comment on above: Performed By: #### MARCOS WELDON ####[facility] Tojinozrzi9[address] [place], [place] [address]Dr. Soniya Chi Nitrite Ql (U) Negative Normal NEGATIVE [facility] Comment on above: Performed By: #### MARCOS WELDON ####[facility] Egmnylmbkx436[address] [place], [place] [address]Dr. Soniya Chi pH (U) 6.0 [pH] Normal 5-[address] [facility] Comment on above: Performed By: #### MARCOS WELDON ####[facility] Fyqfwaxbpp[address] [place], [place] [address]Dr. Soniya Chi SPEC GRAVITY 1.020 Normal 1.005-<=1.[address] [facility] Comment on above: Performed By: #### MARCOS WELDON ####[facility] [address]zubkpvgxz[address] [place], [place] [address]Dr. Soniya Chi UA PROTEIN Negative Normal NEGATIVE/ TRACE [facility] Comment on above: Performed By: #### MARCOS WELDON ####[facility] Glfnxnejed6[address] [place], [place] [address]Dr. Soniya hCi UR MICRO IND INDICATED Normal [facility] Comment on above: Performed By: #### MARCOS WELDON ####[facility] Lhwhkxraoc[address] [place], [place] [address]Dr. Soniya Chi Urobilinogen Qn (U) 0.2 {Casimiro'U}/dL Normal 0.2 - 1. [address] [facility] Comment on above: Performed By: #### MARCOS WELDON ####[facility] [address]kuszlwsqt95[address] [place], [place] [address]Dr. Soniya Alon FREE T3on 05-27-2022 FREE T3 2.63 pg/mlL Normal 2.18-3.[address] [facility] Comment on above: Performed By: #### F T3, TSH ####[facility] Aaefqsiooq[address] [place], [place] [address]Dr. Soniya Chi INFLUENZA A AND B AGon 05-27 INFLUANEGH SEE BELOW Normal [facility] Comment on above: Result Comment: Nega tive for Flu A protein angiten. Infection due to Flu A cannot be ruled out. Flu A angiten in the sample may be below the detection limit of the test. Performed By: #### I NFLUAB ####[facility] Btybggdwyy[address] [place], [place] [address]Dr. Soniya Chi INFLUBNEGH SEE BELOW Normal [facility] Comment on above: Result Comment: Nega tive for Flu B protein antigen. Infection due to Flu B cannot be ruled out. Flu B antigen in the sample may be below the detection limit of the test. Performed By: #### I NFLUAB ####[facility] Oewxpucszy[address] [place], [place] [address]Dr. Soniya Alon INFLUENZA A AG Negative Normal NEGATIVE SEE COMMENT [facility] Comment on above: Performed By: #### I NFLUAB ####[facility] Zmwikwldwg9037 [place] [address]Dr. Soniya Chi INFLUENZA B AG Negative Normal NEGATIVE SEE COMMENT [facility] Comment on above: Performed By: #### I NFLUAB ####[facility] Htpjyfzxal5[address] [place] [address]Dr. Soniya Chi INTERNAL CONTROLS Within Normal Limits Normal Wi thin Normal Limits [facility] Comment on above: Performed By: #### I NFLUAB ####[facility] Dpnvcedkkw0303 [place] [address]Dr. Soniya Chi LACTATE/LACTIC ACIDon 2021 Lactate [Moles/Vol] 1.2 mmol/L Normal 0.4-1.9 [facility] Comment on above: Performed By: #### L ACT ####[facility] Jdyglmrgeq7464[address] [place], [place] [address]Dr. Soniya Chi POINT OF CARE GLUCOSEon 05-03 Glucose [Mass/Vol] 89 mg/dL Normal 74-106 [facility] Comment on above: Performed By: #### P OCGLUC ####[facility] Hbhkkgandy6338 [place] [address]Dr. Soniya Chi Glucose [Mass/Vol] 89 mg/dL Normal 74-106 [facility] Comment on above: Performed By: #### P OCGLUC ####[facility] Dlysyhxhce2640 [place] [address]Dr. Soniya Chi PROF 14(COMP METB)on 022 Albumin [Mass/Vol] 3.7 g/dL Normal 3.4-5.0 [facility] Comment on above: Performed By: #### C MP ####[facility] Xgeiqtrtzp0827 [place] [address]Dr. Soniya Chi Albumin/Globulin [Mass ratio] 0.9 {ratio} Normal [facility] Comment on above: Performed By: #### C MP ####[facility] Fkplxpaztz3642 [place] [address]Dr. Soniya Chi ALP [Catalytic activity/Vol] 92 U/L Normal 46-[address] [facility] Comment on above: Performed By: #### C MP ####[facility] Zvwkolkato1753 [place] [address]Dr. Soniya Chi ALT [Catalytic activity/Vol] 34 U/L Normal 14-59 [facility] Comment on above: Performed By: #### C MP ####[facility] Vkcbzebqwc0562 [place] [address]Dr. Soniya Chi Anion gap [Moles/Vol] 11.0 mmol/L Normal [facility] Comment on above: Performed By: #### C MP ####[facility] Cbtoopxect6648 [place] [address]Dr. Soniya Chi AST [Catalytic activity/Vol] 19 U/L Normal 15-37 [facility] Comment on above: Performed By: #### C MP ####[facility] Xvwfpunokp[address] [place], [place] [address]Dr. Soniya Alon Bilirubin [Mass/Vol] 1.0 mg/dL Normal 0.2-1.0 [facility] Comment on above: Performed By: #### C MP ####[facility] [address]upyzxmcfo39[address] [place], [place] [address]Dr. Soniya Alon Calcium [Mass/Vol] 10.2 mg/dL Critically high 8.5-10.1 [facility] Comment on above: Performed By: #### C MP ####[facility] [address]gcztqovr[address] [place], [place] [address]Dr. Soniya Alon Chloride [Moles/Vol] 103 mmol/L Normal 98-[address] [facility] Comment on above: Performed By: #### C MP ####[facility] Xqnjoycmip[address] [place], [place] [address]Dr. Soniya Chi CO2 [Moles/Vol] 31.6 mmol/L Normal 21.0-32.0 [facility] Comment on above: Performed By: #### C MP ####[facility] Zdsfmmufdq[address] [place], [place] [address]Dr. Gypsyjuan Alon Creatinine [Mass/Vol] 1.15 mg/dL Critically high 0.55-1.02 [facility] Comment on above: Performed By: #### C MP ####[facility] Ktearidwlw6196 [place] [address]Dr. Soniya Chi EGFR-AF SRI LANKAN 57 mL/min/1.73m2 Critically low >=60 [facility] Comment on above: Performed By: #### C MP ####[facility] Zplebwcklv6386 [place] [address]Dr. Soniya Alon EGFR-NON AF SRI LANKAN 47 mL/min/1.73m2 Critically low >=60 [facility] Comment on above: Performed By: #### C MP ####[facility] Gbhhzgcnus2[address] [place] [address]Dr. Soniya Alon Globulin (S) [Mass/Vol] 4.0 g/dL Normal [facility] Comment on above: Performed By: #### C MP ####[facility] Uqtqhticpw1198 [place] [address]Dr. Soniya Chi Glucose [Mass/Vol] 82 mg/dL Normal 74-106 [facility] Comment on above: Performed By: #### C MP ####[facility] Ewdsskkysu4252 [place] [address]Dr. Soniya Chi Potassium [Moles/Vol] 3.6 mmol/L Normal 3.5-5.1 [facility] Comment on above: Performed By: #### C MP ####[facility] Ckpidjofli1976 [place] [address]Dr. Soniya Chi Protein [Mass/Vol] 7.7 g/dL Normal 6.4-8.2 [facility] Comment on above: Performed By: #### C MP ####[facility] Bxbbbgwbuq9865 [place] [address]Dr. Soniya Chi Sodium [Moles/Vol] 142 mmol/L Normal 136-145 [facility] Comment on above: Performed By: #### C MP ####[facility] Oxswvestos4850 [place] [address]Dr. Soniya Chi Urea nitrogen [Mass/Vol] 31.0 mg/dL Critically high 7.0-18.0 [facility] Comment on above: Performed By: #### C MP ####[facility] Gtepbjhntc6130 [place] [address]Dr. Soniya Chi Urea nitrogen/Creatinine [Mass ratio] 27.0 mg/mg Normal [facility] Comment on above: Performed By: #### C MP ####[facility] Kprtdxuhqn1184 [place] [address]Dr. Soniya Chi TSHon 05-27-2022 TSH 8.165 uIU/mL Critically high 0.358-3.740 [facility] Comment on above: Performed By: #### F T3, TSH ####[facility] Bxdzaavcrz8[address] [place], [place] [address]Dr. Soniya Chi URINE MICROSCOPIC ONLYon BACTERIA TRACE Abnormal NONE SEEN [facility] Comment on above: Performed By: #### Benoit CARTER UMICRO ####[facility] [address]wgnghkspz14[address] [place], [place] [address]Dr. Soniya Chi Bacteria identified Cx Nom (U) INDICATED Normal [facility] Comment on above: Performed By: #### Benoit CARTER UMICRO ####[facility] Tqluvqmqrj[address] [place], [place] [address]Dr. Soniya Chi CAST NONE SEEN Normal NONE SEEN [facility] Comment on above: Performed By: #### Benoit CARTER UMICRO ####[facility] [address]jffzhso20[address] [place], [place] [address]Dr. Soniya Chi Crystals LM Nom (Urine sed) NONE SEEN Normal NONE SEEN [facility] Comment on above: Performed By: #### Benoit CARTER UMICRO ####[facility] Tvmozpsnfm[address] [place], [place] [address]Dr. Soniya Chi Epithelial cells LM Ql (Urine sed) FEW Abnormal NONE SEEN /RARE [facility] Comment on above: Performed By: #### Bneoit CARTER UMICRO ####[facility] Eehhyilmfa57[address] [place], [place] [address]Dr. Soniya Chi MUCOUS NONE SEEN Normal NONE SEEN [facility] Comment on above: Performed By: #### E RUR, UMICRO ####[facility] Xwsyocjgyx5[address] [place], [place] [address]Jk. Soniya Chi RBC NONE SEEN Abnormal 0-[address] [facility] Comment on above: Performed By: #### MARCOS WELDON ####[facility] Vlvamgzgjh3422 [place], [place] [address]Sa. Soniya Chi WBC 2-5 Abnormal NONE SEEN [facility] Comment on above: Performed By: #### E MARCOS CARTER ####[facility] Drdjyamakp5494 [place], [place] [address]Yq. Soniya Chi XR CHEST 1 Von 05-27-2022 XR CHEST [address] [facility] Covid-19 PCR (CVDTB)on SARS-CoV-2 (COVID-19) RNA DORIAN+probe Ql (Unsp spec) Not detected Normal NOT DETECTED [facility] Comment on above: Result Comment: This test is not yet approved or cleared by the [place] FDA. When there are no FDA-approved or cleared tests available, and other criteria are met, FDA can make tests available under an emergency access mechanism called an Emergency Use Authorization (EUA). The EUA for this test is supported by the [place] of Health and Human Service's (HHS's) declaration [...] with SARS-CoV-2. Performed By: #### C VDTBH ####[facility] Mayuvjsvek9437 [place], [place] [address]Fi. Soniya Chi CBC AUTO DIFFon 04-23-2022 BASO # 0.0 103/ul Normal 0.0-0.[address] [facility] Comment on above: Performed By: #### C BC ####[facility] Czyofzwegx8895 [place] [address]Dr. Soniya Chi Basophils/100 WBC (Bld) 0.4 % Normal 0.2-2.0 [facility] Comment on above: Performed By: #### C BC ####[facility] Ffjpjylhbz[address] [place], [place] [address]Dr. Soniya Chi EO # 0.1 103/ul Normal 0.0-0.7 [facility] Comment on above: Performed By: #### C BC ####[facility] Wgrangvepm9[address] [place], [place] [address]Dr. Soniya Chi Eosinophils/100 WBC (Bld) 1.9 % Normal 0.9-7.0 [facility] Comment on above: Performed By: #### C BC ####[facility] [address]vwjptyw[address] [place], [place] [address]Dr. Soniya Chi Erythrocyte distribution width (RBC) [Ratio] 13.4 % Normal 11.0-15.0 [facility] Comment on above: Performed By: #### C BC ####[facility] W[address]opvstre[address] [place], [place] [address]Dr. Soniya Chi Hematocrit (Bld) [Volume fraction] 37.0 % Normal 36.0-48.0 [facility] Comment on above: Performed By: #### C BC ####[facility] Wcjnzprzpk[address] [place], [place] [address]Dr. Soniya Chi Hemoglobin (Bld) [Mass/Vol] 12.1 g/dL Normal 12.0-16.0 [facility] Comment on above: Performed By: #### C BC ####[facility] Itbigqmfne[address] [place], [place] [address]Dr. Soniya Chi IG # 0.01 10e3/ul Normal 0.00-0.03 [facility] Comment on above: Performed By: #### C BC ####[facility] Kinhbseyyi[address] [place], [place] [address]Dr. Soniya Chi IG % 0.2 % Normal 0.0-0.[address] [facility] Comment on above: Performed By: #### C BC ####[facility] Csunajckfb8[address] [place] [address]Dr. Soniya Chi LYMPH # 1.8 103/ul Normal 1.2-3.8 [facility] Comment on above: Performed By: #### C BC ####[facility] Wkeackjrtd9436 [place], [place] [address]Xn. Soniya Alon Lymphocytes/100 WBC (Bld) 30.9 % Normal 20.5-60.0 [facility] Comment on above: Performed By: #### C BC ####[facility] [facility] B[address]znsxida[address] [place] [phone]. Gypsyjuan Chi MANUAL DIFF REQ NO Normal [facility] Comment on above: Performed By: #### C BC ####[facility] Ztvdyxcejd7685 [place] [phone]. Soniya Alon MCH (RBC) [Entitic mass] 29.7 pg Normal 26.7-34.0 [facility] Comment on above: Performed By: #### C BC ####[facility] Kwtlptpmfq[address] [place] [phone]. Soniya Chi MCHC (RBC) [Mass/Vol] 32.7 g/dL Normal 29.9-35.2 [facility] Comment on above: Performed By: #### C BC ####[facility] Muhbmrngaj4[address] [place] [phone]. Gypsyjuan Alon MCV (RBC) [Entitic vol] 90.7 fL Normal 81.0-99.0 [facility] Comment on above: Performed By: #### C BC ####[facility] Iuzdzoragj[address] [place] [phone]. Soniya Alon MONO # 0.4 103/ul Normal 0.3-0.8 [facility] Comment on above: Performed By: #### C BC ####[facility] Hpoedjyfbb43[address] [place] [phone]. Soniya Alon Monocytes/100 WBC (Bld) 6.5 % Normal 1.7-12.0 [facility] Comment on above: Performed By: #### C BC ####[facility] Ybhdslndlb8355 [place] [phone]. Soniya Chi NEUT # 3.4 103/ul Normal 1.4-6.[address] [facility] Comment on above: Performed By: #### C BC ####[facility] Jqevvisnnt24[address] [place] [phone]. Soniya Chi Neutrophils/100 WBC (Bld) 60.1 % Normal 43.0-75.[address] [facility] Comment on above: Performed By: #### C BC ####[facility] Zydohceudx4[address] [place] [phone]. Soniya Chi Platelet mean volume (Bld) [Entitic vol] 10.0 fL Normal 9.5-13.[address] [facility] Comment on above: Performed By: #### C BC ####[facility] Lzxnmmuaiy119[address] [place] [phone]. Soniya Chi PLT 193 103/ul Normal 150-[address] [facility] Comment on above: Performed By: #### C BC ####[facility] Eahybvrcvv1750 [place] [phone]. Soniya Chi RBC 4.08 106/ul Critically low 4.20-5.40 [facility] Comment on above: Performed By: #### C BC ####[facility] Qafmqpiwib8269 [place] [phone]. Soniya Chi WBC 5.7 103/ul Normal 4.0-11.[address] [facility] Comment on above: Performed By: #### C BC ####[facility] Hympyodfwe[address] [place] [phone]. Soniya Chi FREE T3on 04-23-2022 FREE T3 2.90 pg/mlL Normal 2.18-3.[address] [facility] Comment on above: Performed By: #### F T3, LIPID, CMP, TSH ####[facility] Zgbgcnvqaw84[address] [place] [phone]. Soniya Chi FREE T4on 04-23-2022 Free T4 [Mass/Vol] 0.91 ng/dL Normal 0.76-1.46 [facility] Comment on above: Performed By: #### F T4 ####[facility] Uyvbczdpya67[address] [place] [phone]. Soniya Chi LIPID PROFILEon 04-23-2022 CHOL-HDL RATIO NORM SEE BELOW Normal [facility] Comment on above: Result Comment: 3.3 - 4.4 LOW RISK 4.4 - 7.1 AVERAGE RISK 7.1 - 11.0 MODERATE RISK >11.0 HIGH RISK Performed By: #### F T3, LIPID, CMP, TSH ####[facility] Hfwarvqvny7[address] [place] [phone]. Soniya Chi Cholesterol [Mass/Vol] 211 mg/dL Critically high <=200 [facility] Comment on above: Performed By: #### F T3, LIPID, CMP, TSH ####[facility] Cbkxhpttgp37[address] [place] [phone]. Soniya Chi Cholesterol in HDL [Mass/Vol] 109 mg/dL Critically high 40-60 [facility] Comment on above: Performed By: #### F T3, LIPID, CMP, TSH ####[facility] Fskrhcbwch5[address] [place] [phone]. Gypsyjuan Chi Cholesterol in LDL [Mass/Vol] 70.2 mg/dL Normal [facility] Comment on above: Performed By: #### F T3, LIPID, CMP, TSH ####[facility] Yubwinkpwk[address] [place] [phone]. Soniya Chi Cholesterol.total/Veronica sterol in HDL [Mass ratio] 1.9 {ratio} Normal [facility] Comment on above: Performed By: #### F T3, LIPID, CMP, TSH ####[facility] Ctzmplrgmo[address] [place] [phone]. Soniya Chi HDL NORMAL > or = 60 mg/dl - LO W CARDIOVASCULAR RISK <40 mg/dl - HIGH CARDIOVASCULAR RISK Normal [facility] Comment on above: Performed By: #### F T3, LIPID, CMP, TSH ####[facility] Vxpnyigfeq27[address] [place] [phone]. Soniya Chi LDL CALC NORMAL SEE BELOW Normal [facility] Comment on above: Result Comment: <100 mg/dl OPTIMAL 100 - 129 mg/dl NEAR OR ABOVE OPTIMAL 130 - 159 mg/dl BORDERLINE HIGH 160 - 189 mg/dl HIGH >190 mg/dl VERY HIGH Performed By: #### F T3, LIPID, CMP, TSH ####[facility] Scokwmmkeo[address] [place] [phone]. Soniya Chi Triglyceride [Mass/Vol] 159 mg/dL Critically high <=150 [facility] Comment on above: Performed By: #### F T3, LIPID, CMP, TSH ####[facility] B[address]qgofkhbv25[address] [place] [phone]. Soniya Chi VLDL CALC 31.8 mg/dL Normal [facility] Comment on above: Performed By: #### F T3, LIPID, CMP, TSH ####[facility] [address]wnzxbyq[address] [place] [address]Dr. Soniya Chi PROF 14(COMP METB)on 022 Albumin [Mass/Vol] 3.9 g/dL Normal 3.4-5.0 [facility] Comment on above: Performed By: #### F T3, LIPID, CMP, TSH ####[facility] [address]qyczymyix7[address] [place] [address]Dr. Soniya Chi Albumin/Globulin [Mass ratio] 1.0 {ratio} Normal [facility] Comment on above: Performed By: #### F T3, LIPID, CMP, TSH ####[facility] Egldjqpoba[address] [place] [address]Dr. Soniya Chi ALP [Catalytic activity/Vol] 76 U/L Normal 46-116 [facility] Comment on above: Performed By: #### F T3, LIPID, CMP, TSH ####[facility] Ihioonseaq3438 [place] [phone]. Soniya Chi ALT [Catalytic activity/Vol] 35 U/L Normal 14-59 [facility] Comment on above: Performed By: #### F T3, LIPID, CMP, TSH ####[facility] Uoulghebnp[address] [place] [phone]. Soniya Chi Anion gap [Moles/Vol] 11.8 mmol/L Normal [facility] Comment on above: Performed By: #### F T3, LIPID, CMP, TSH ####[facility] Jdxqsukoyc15[address] [place] [address]Dr. Soniya Chi AST [Catalytic activity/Vol] 14 U/L Critically low 15-37 [facility] Comment on above: Performed By: #### F T3, LIPID, CMP, TSH ####[facility] Wlaffzgvyj44[address] [place] [address]Dr. Soniya Chi Bilirubin [Mass/Vol] 0.6 mg/dL Normal 0.2-1.0 [facility] Comment on above: Performed By: #### F T3, LIPID, CMP, TSH ####[facility] Yveccjrhrn[address] [place], [place] [address]Dr. Soniya Chi Calcium [Mass/Vol] 10.1 mg/dL Normal 8.5-10.1 [facility] Comment on above: Performed By: #### F T3, LIPID, CMP, TSH ####[facility] [address]xvtglncxw[address] [place], [place] [address]Dr. Soniya Chi Chloride [Moles/Vol] 103 mmol/L Normal 98-107 [facility] Comment on above: Performed By: #### F T3, LIPID, CMP, TSH ####[facility] Vhvrryundo[address] [place] [address]Dr. Soniya Chi CO2 [Moles/Vol] 29.8 mmol/L Normal 21.0-32.0 [facility] Comment on above: Performed By: #### F T3, LIPID, CMP, TSH ####[facility] Yppsbwdpta32[address] [place] [address]Dr. Soniya Chi Creatinine [Mass/Vol] 1.17 mg/dL Critically high 0.55-1.02 [facility] Comment on above: Performed By: #### F T3, LIPID, CMP, TSH ####[facility] Wlmyzxaayq[address] [place] [address]Dr. Soniya Chi EGFR-AF SRI LANKAN 56 mL/min/1.73m2 Critically low >=[address] [facility] Comment on above: Performed By: #### F T3, LIPID, CMP, TSH ####[facility] Orsmtksyqf80[address] [place] [address]Dr. Soniya Chi EGFR-NON AF SRI LANKAN 46 mL/min/1.73m2 Critically low >=60 [facility] Comment on above: Performed By: #### F T3, LIPID, CMP, TSH ####[facility] Obvzxhsvtj47[address] [place] [address]Dr. Soniya Chi Globulin (S) [Mass/Vol] 3.9 g/dL Normal T [facility] Comment on above: Performed By: #### F T3, LIPID, CMP, TSH ####[facility] [address]xkkqofcb75[address] [place] [address]Dr. Soniya Chi Glucose [Mass/Vol] 94 mg/dL Normal 74-106 [facility] Comment on above: Performed By: #### F T3, LIPID, CMP, TSH ####[facility] [address]brzolsyi[address] [place] [address]Dr. Soniya Chi Potassium [Moles/Vol] 3.6 mmol/L Normal 3.5-5.[address] [facility] Comment on above: Performed By: #### F T3, LIPID, CMP, TSH ####[facility] Sngzgvmvfm8375 [place] [address]Dr. Soniya Chi Protein [Mass/Vol] 7.8 g/dL Normal 6.4-8.2 [facility] Comment on above: Performed By: #### F T3, LIPID, CMP, TSH ####[facility] Wtqqvvjnmg0505 [place] [address]Dr. Soniya Chi Sodium [Moles/Vol] 141 mmol/L Normal 136-145 [facility] Comment on above: Performed By: #### F T3, LIPID, CMP, TSH ####[facility] Acquhydvjg75[address] [place] [address]Dr. Soniya Chi Urea nitrogen [Mass/Vol] 27.0 mg/dL Critically high 7.0-18.0 [facility] Comment on above: Performed By: #### F T3, LIPID, CMP, TSH ####[facility] Scimbbufim37[address] [place] [address]Dr. Soniya Chi Urea nitrogen/Creatinine [Mass ratio] 23.1 mg/mg Normal [facility] Comment on above: Performed By: #### F T3, LIPID, CMP, TSH ####[facility] Crqmohgrrd5537 [place] [address]Dr. Soniya Chi TSHon 04-23-2022 TSH 3.933 uIU/mL Critically high 0.358-3.740 [facility] Comment on above: Performed By: #### F T3, LIPID, CMP, TSH ####[facility] Lyszbbfiwr7[address] [place] [address]Dr. Soniya Chi UA (CLEAN/CATCH) FOOD AND BEVERAGE DIRECTOR/MICRO I F IND.on 04-23-2022 Bilirubin Ql (U) Negative Normal NEGATIVE [facility] Comment on above: Performed By: #### U ACSIND, ICRO ####[facility] Itnikvieja[address] [place], [place] [address]Dr. Soniya Chi Clarity (U) CLEAR Normal CLEAR [facility] Comment on above: Performed By: #### U ACSIND, ICRO ####[facility] Jtsvpfbduz[address] [place], [place] [address]Dr. Soniya Chi Color (U) LT. YELLOW Normal YELLOW [facility] Comment on above: Performed By: #### U ACSIND, UMICRO ####[facility] Rlopwqdnjq164[address] [place], [place] [address]Dr. Soniya Chi Glucose Ql (U) Negative Normal NEGATIVE [facility] Comment on above: Performed By: #### U ACSIND, UMICRO ####[facility] Pkqzbubysa[address] [place], [place] [address]Dr. Soniya Chi Hemoglobin Ql (U) Negative Normal NEGATIVE [facility] Comment on above: Performed By: #### U ACSIND, UMICRO ####[facility] [address]lgcobazoz[address] [place], [place] [address]Dr. Soniya Chi Ketones Ql (U) Negative Normal NEGATIVE [facility] Comment on above: Performed By: #### U ACSIND, UMICRO ####[facility] [address]gkwszu17[address] [place] [address]Dr. Soniya Chi LEUKOCYTES TRACE Abnormal NEGATIVE [facility] Comment on above: Performed By: #### U MARCOS ALFORD ####[facility] Xfckgmatlr1563 [place] [address]Dr. Soniya Chi Nitrite Ql (U) Negative Normal NEGATIVE [facility] Comment on above: Performed By: #### MARCOS RAO ####[facility] Nxkapkpckv3654 [place] [address]Dr. Soniya Chi pH (U) 5.5 [pH] Normal 5-[address] [facility] Comment on above: Performed By: #### MARCOS RAO ####[facility] Okjyomdvve60[address] [place] [address]Dr. Soniya Chi SPEC GRAVITY 1.020 Normal 1.005-<=1.[address] [facility] Comment on above: Performed By: #### MARCOS RAO ####[facility] Czdyfplpor5[address] [place] [address]Dr. Soniya Chi UA PROTEIN Negative Normal NEGATIVE/ TRACE [facility] Comment on above: Performed By: #### MARCOS RAO ####[facility] Mfznwgpqic4[address] [place] [address]Dr. Soniya Chi UR MICRO IND INDICATED Normal [facility] Comment on above: Performed By: #### MARCOS RAO ####[facility] Tbozawgjit9[address] [place] [address]Dr. Soniya Chi Urobilinogen Qn (U) 0.2 {Casimiro'U}/dL Normal 0.2 - 1. [address] [facility] Comment on above: Performed By: #### MARCOS RAO ####[facility] Cxrigdjiiz8306 [place] [address]Dr. Soniya Chi URINE MICROSCOPIC ONLYon BACTERIA NONE SEEN Normal NONE SEEN [facility] Comment on above: Performed By: #### MARCOS RAO ####[facility] Zzgwpurglj4102 [place] [address]Dr. Soniya Chi Bacteria identified Cx Nom (U) NOT INDICATED Normal [facility] Comment on above: Performed By: #### U PRASHANTH UMICRO ####[facility] Idlkelyyza9337 [place] [address]Dr. Soniya Chi CAST NONE SEEN Normal NONE SEEN [facility] Comment on above: Performed By: #### U PRASHANTH UMICRO ####[facility] Wsvmdyplhu0553 [place] [address]Dr. Soniya Chi Crystals LM Nom (Urine sed) NONE SEEN Normal NONE SEEN [facility] Comment on above: Performed By: #### U PRASHANTH UMICRO ####[facility] Cfiinbrbwj28[address] [place] [address]Dr. Soniya Chi Epithelial cells LM Ql (Urine sed) FEW Abnormal NONE SEEN /RARE [facility] Comment on above: Performed By: #### U PRASHANTH UMICRO ####[facility] Eufymnarpf7[address] [place] [address]Dr. Soniya Chi MUCOUS TRACE Abnormal NONE SEEN [facility] Comment on above: Performed By: #### U PRASHANTH ICRO ####[facility] Ykdjqepdba[address] [place], [place] [address]Dr. Soniya Chi RBC NONE SEEN Abnormal 0-[address] [facility] Comment on above: Performed By: #### U PRASHANTH UMICRO ####[facility] Kvzpeuculp1552 [place] [address]Dr. Soniya Chi WBC 0-2 Abnormal NONE SEEN [facility] Comment on above: Performed By: #### U PRASHANTH UMICRO ####[facility] Wryuzsavui0021 [place] [address]Dr. Soniya Chi MG MAMM SCREEN 3D PANCHITO CADon 04-17-2022 MG MAMM SCREEN 3D PANCHITO CAD Normal [facility] CULTURE URINEon 04-06-2022 CULTURE URINE Normal [facility] Comment on above: Performed By: #### U RCX ####[facility] Nrhacohykn2443 [place] [address]Dr. Soniya Chi ER URINE PROFILEon 2 Bilirubin Ql (U) Negative Normal NEGATIVE [facility] Comment on above: Performed By: #### U MICRO, ERUR ####[facility] Nooekyubzv2266 [place] [address]Dr. Soniya Chi Clarity (U) SL CLOUDY Abnormal CLEAR [facility] Comment on above: Performed By: #### U MICRO, ERUR ####[facility] [address]shxkxdox[address] [place], [place] [address]Dr. Gypsyjuan Chi Color (U) YELLOW Normal YELLOW [facility] Comment on above: Performed By: #### U MICRO, ERUR ####[facility] Ctytibqont74[address] [place], [place] [address]Dr. Soniya Chi ERUAHD A micrscopic examination will be performed if indicated. Normal [facility] Comment on above: Performed By: #### U MICRO, ERUR ####[facility] Hgaeezmsnm[address] [place], [place] [address]Dr. Gypsyjuan Chi Glucose Ql (U) Negative Normal NEGATIVE [facility] Comment on above: Performed By: #### U MICRO, ERUR ####[facility] Medywnrxqb8[address] [place], [place] [address]Dr. Gypsyjuan Chi Hemoglobin Ql (U) LARGE Abnormal NEGATIVE [facility] Comment on above: Performed By: #### U MICRO, ERUR ####[facility] Asfjqeczic43[address] [place], [place] [address]Dr. Soniya Cih Ketones Ql (U) Negative Normal NEGATIVE [facility] Comment on above: Performed By: #### U MICRO, ERUR ####[facility] Reoynwbhec315[address] [place], [place] [address]Dr. Soniya Chi LEUKOCYTES LARGE Abnormal NEGATIVE [facility] Comment on above: Performed By: #### U MICRO, ERUR ####[facility] Idkuzahjdy88[address] [place], [place] [address]Dr. Soniya Chi Nitrite Ql (U) Negative Normal NEGATIVE [facility] Comment on above: Performed By: #### U MICRO, ERUR ####[facility] Cwwnsndrzs2452 [place] [address]Dr. Soniya Chi pH (U) 6.5 [pH] Normal 5-[address] [facility] Comment on above: Performed By: #### U MICRO, ERUR ####[facility] Wqjckdtpzc347[address] [place], [place] [address]Dr. Soniya Chi Protein (U) [Mass/Vol] 100 mg/dL Abnormal NEGAT DEMARCO/ TRACE [facility] Comment on above: Performed By: #### U MICRO, ERUR ####[facility] Lyutosaixl86[address] [place], [place] [address]Dr. Soniya Chi SPEC GRAVITY <=1.005 Abnormal 1.005-<=1.[address] [facility] Comment on above: Performed By: #### U MICRO, ERUR ####[facility] [address]tjnovvslx[address] [place], [place] [address]Dr. Soniya Chi UR MICRO IND INDICATED Normal [facility] Comment on above: Performed By: #### U MICRO, ERUR ####[facility] Serbjcpxzh[address] [place], [place] [address]Dr. Soniya Chi Urobilinogen Qn (U) 0.2 {Casimiro'U}/dL Normal 0.2 - 1. [address] [facility] Comment on above: Performed By: #### U MICRO, ERUR ####[facility] Znbzqmfaca[address] [place], [place] [address]Dr. Gypsyjuan Chi URINE MICROSCOPIC ONLYon BACTERIA MODERATE Abnormal NONE SEEN [facility] Comment on above: Performed By: #### U MICRO, ERUR ####[facility] Nzbebuhlem[address] [place], [place] [address]Dr. Gypsyjuan Chi Bacteria identified Cx Nom (U) INDICATED Normal [facility] Comment on above: Performed By: #### U MICRO, ERUR ####[facility] Cnwlneppee[address] [place], [place] [address]Dr. Soniya Chi CAST NONE SEEN Normal NONE SEEN [facility] Comment on above: Performed By: #### U MICRO, ERUR ####[facility] Ijtrilswvj[address] [place], [place] [address]Dr. Soniya Alon Crystals LM Nom (Urine sed) NONE SEEN Normal NONE SEEN [facility] Comment on above: Performed By: #### U MICRO, ERUR ####[facility] Tiynjnrogp6504 [place] [address]Dr. Soniya Chi Epithelial cells LM Ql (Urine sed) FEW Abnormal NONE SEEN /RARE [facility] Comment on above: Performed By: #### U MICRO, ERUR ####[facility] Qziclyvmqf7051 [place] [address]Dr. Soniya Chi MUCOUS NONE SEEN Normal NONE SEEN [facility] Comment on above: Performed By: #### U MICRO, ERUR ####[facility] Mqssdurzvi2475 [place] [address]Dr. Soniya Chi RBC 20-50 Abnormal 0-[address] [facility] Comment on above: Performed By: #### U MICRO, ERUR ####[facility] Zwrayviacv7412 [place] [address]Dr. Soniya Chi WBC (U) [#/Vol] /uL Abnormal NONE SEEN [facility] Comment on above: Performed By: #### U MICRO, ERUR ####[facility] Scvmwzixrh[address] [place], [place] [address]Dr. Soniya Alon [facility]-19 [facility]on SARS-CoV-2 (COVID-19) RNA DORIAN+probe Ql (Unsp spec) Not detected Normal NOT DETECTED [facility] Comment on above: Result Comment: This test is not yet approved or cleared by the [place] FDA. When there are no FDA-approved or cleared tests available, and other criteria are met, FDA can make tests available under an emergency access mechanism called an Emergency Use Authorization (EUA). The EUA for this test is supported by the [place] of Health and Human Service's (HHS's) declaration [...] with SARS-CoV-2. Performed By: #### C VDTB ####[facility] Uklscigxti85[address] [place] [phone]. Soniya Chi Covid-19 PCR ([facility])on 11-30 SARS-CoV-2 (COVID-19) RNA DORIAN+probe Ql (Unsp spec) Detected Critically abnormal NOT DETECTED [facility] Comment on above: Result Comment: This test is not yet approved or cleared by the [place] FDA. When there are no FDA-approved or cleared tests available, and other criteria are met, FDA can make tests available under an emergency access mechanism called an Emergency Use Authorization (EUA). The EUA for this test is supported by the [place] of Health and Human Service's declaration that [...] be used). Performed By: #### C VDTB ####[facility] Szuilbwdai[address] [place], [place] [address]Dr. Soniya Chi CT HEAD WO CONon 12-15-2021 CT HEAD WO CON Normal [facility] CBC AUTO DIFFon 12-12-2021 BASO # 0.0 103/ul Normal 0.0-0.1 [facility] Comment on above: Performed By: #### C BC ####[facility] Paxrkrarbb9861 [place] [address]Dr. Soniya Chi Basophils/100 WBC (Bld) 0.5 % Normal 0.2-2.0 [facility] Comment on above: Performed By: #### C BC ####[facility] Wtnjcxhkeu4837 [place] [phone]. Soniya Chi EO # 0.1 103/ul Normal 0.0-0.[address] [facility] Comment on above: Performed By: #### C BC ####[facility] [address]ptpevnkq[address] [place], [place] [address]Dr. Soniya Chi Eosinophils/100 WBC (Bld) 1.6 % Normal 0.9-7.0 [facility] Comment on above: Performed By: #### C BC ####[facility] Qzxnxszyuk[address] [place], [place] [address]Dr. Soniya Chi Erythrocyte distribution width (RBC) [Ratio] 12.2 % Normal 11.0-15.[address] [facility] Comment on above: Performed By: #### C BC ####[facility] Tecmjeqaqn180[address] [place], [place] [address]Dr. Soniya Chi Hematocrit (Bld) [Volume fraction] 38.7 % Normal 36.0-48.[address] [facility] Comment on above: Performed By: #### C BC ####[facility] Ajqknckkzc[address] [place], [place] [address]Dr. Soniya Chi Hemoglobin (Bld) [Mass/Vol] 12.4 g/dL Normal 12.0-16.[address] [facility] Comment on above: Performed By: #### C BC ####[facility] Iqydtkiwzs[address] [place], [place] [address]Dr. Soniya Chi IG # 0.02 10e3/ul Normal 0.00-0.[address] [facility] Comment on above: Performed By: #### C BC ####[facility] [address]gkolpab[address] [place], [place] [address]Dr. Soniya Chi IG % 0.3 % Normal 0.0-0.[address] [facility] Comment on above: Performed By: #### C BC ####[facility] Ibnfnijgxf9[address] [place], [place] [address]Dr. Soniya Chi LYMPH # 1.5 103/ul Normal 1.2-3.[address] [facility] Comment on above: Performed By: #### C BC ####[facility] [address]pgybxnb[address] [place], [place] [address]Dr. Soniya Chi Lymphocytes/100 WBC (Bld) 20.6 % Normal 20.5-60.0 [facility] Comment on above: Performed By: #### C BC ####[facility] Rnbrrdamur9[address] [place] [address]DrKarolina Chi MANUAL DIFF REQ NO Normal [facility] Comment on above: Performed By: #### C BC ####[facility] Yfbnwomwss1110 [place] [address]Dr. Soniya Chi MCH (RBC) [Entitic mass] 29.5 pg Normal 26.7-34.0 [facility] Comment on above: Performed By: #### C BC ####[facility] [address]jkl[address] [place], [place] [address]DrKarolina Chi MCHC (RBC) [Mass/Vol] 32.0 g/dL Normal 29.9-35.2 [facility] Comment on above: Performed By: #### C BC ####[facility] [address] [place], [place] [address]DrKarolina Chi MCV (RBC) [Entitic vol] 91.9 fL Normal 81.0-99.0 [facility] [facility] Comment on above: Performed By: #### C BC ####[facility] [address] [place], [place] [address]DrKarolina Chi MONO # 0.5 103/ul Normal 0.3-0.8 [facility] Comment on above: Performed By: #### C BC ####[facility] [address] [place], [place] [address]DrKarolina Chi Monocytes/100 WBC (Bld) 7.4 % Normal 1.7-12.0 [facility] Comment on above: Performed By: #### C BC ####[facility] [address] [place], [place] [address]DrKarolina Chi NEUT # 5.1 103/ul Normal 1.4-6.5 [facility] Comment on above: Performed By: #### C BC ####[facility] [address] [place], [place] [address]DrKarolina Chi Neutrophils/100 WBC (Bld) 69.6 % Normal 43.0-75.0 [facility] Comment on above: Performed By: #### C BC ####[facility] [address] [place] [address]DrKarolina Chi Platelet mean volume (Bld) [Entitic vol] 9.7 fL Normal 9.5-13.5 [facility] Comment on above: Performed By: #### C BC ####[facility] [address] [place] [address]DrKarolina Chi PLT 248 103/ul Normal 150-[address] [facility] Comment on above: Performed By: #### C BC ####[facility] I[address]un[address] [place], [place] [address]Dr. Soniya Chi RBC 4.21 106/ul Normal 4.20-5.40 [facility] Comment on above: Performed By: #### C BC ####[facility] Kwr[address] [place], [place] [address]DrKarolina Chi WBC 7.3 103/ul Normal 4.0-11.0 [facility] Comment on above: Performed By: #### C BC ####[facility] [address] [place], [place] [address]DrKarolina Chi PROF 14(COMP METB)on 022 Albumin [Mass/Vol] 3.8 g/dL Normal 3.4-5.0 [facility] Comment on above: Performed By: #### C MP ####[facility] [address] [place], [place] [address]DrKarolina Chi Albumin/Globulin [Mass ratio] 1.0 {ratio} Normal [facility] Comment on above: Performed By: #### C MP ####[facility] [address] [place], [place] [address]DrKarolina Chi ALP [Catalytic activity/Vol] 71 U/L Normal 46-[address] [facility] Comment on above: Performed By: #### C MP ####[facility] [address] [place], [place] [address]DrKarolina Chi ALT [Catalytic activity/Vol] 21 U/L Normal 14-59 [facility] Comment on above: Performed By: #### C MP ####[facility] [address] [place] [address]Dr. Soniya Chi Anion gap [Moles/Vol] 12.4 mmol/L Normal Th [facility] Comment on above: Performed By: #### C MP ####[facility] [address] [place] [address]Dr. Soniya Chi AST [Catalytic activity/Vol] 12 U/L Critically low 15-37 [facility] Comment on above: Performed By: #### C MP ####[facility] [address] [place] [address]Dr. Soniya Alon Bilirubin [Mass/Vol] 0.9 mg/dL Normal 0.2-1.0 [facility] Comment on above: Performed By: #### C MP ####[facility] [address] [place], [place] [address]Dr. Soniya Alon Calcium [Mass/Vol] 9.6 mg/dL Normal 8.5-10.1 [facility] Comment on above: Performed By: #### C MP ####[facility] Y[address]lz[address] [place], [place] [address]Dr. Soniya Alon Chloride [Moles/Vol] 103 mmol/L Normal 98-107 [facility] Comment on above: Performed By: #### C MP ####[facility] R[address]aphuf[address] [place], [place] [address]Dr. Soniya Alon CO2 [Moles/Vol] 26.7 mmol/L Normal 21.0-32.0 [facility] Comment on above: Performed By: #### C MP ####[facility] [address] [place], [place] [address]Dr. Soniya Alon Creatinine [Mass/Vol] 1.30 mg/dL Critically high 0.55-1.02 [facility] Comment on above: Performed By: #### C MP ####[facility] [address] [place], [place] [address]Dr. Soniya Alon EGFR-AF SRI LANKAN 50 mL/min/1.73m2 Critically low >=60 [facility] Comment on above: Performed By: #### C MP ####[facility] [address] [place] [address]Dr. Soniya Alon EGFR-NON AF SRI LANKAN 41 mL/min/1.73m2 Critically low >=60 [facility] Comment on above: Performed By: #### C MP ####[facility] [address] [place] [address]Dr. Soniya Alon Globulin (S) [Mass/Vol] 3.7 g/dL Normal T [facility] Comment on above: Performed By: #### C MP ####[facility] [address] [place] [address]Dr. Gypsyjuan Alon Glucose [Mass/Vol] 104 mg/dL Normal 74-106 [facility] Comment on above: Performed By: #### C MP ####[facility] Ebd[address]cc[address] [place], [place] [address]Dr. Soniya Chi Potassium [Moles/Vol] 4.1 mmol/L Normal 3.5-5.1 [facility] Comment on above: Performed By: #### C MP ####[facility] X[address] [place], [place] [address]Dr. Soniya Alon Protein [Mass/Vol] 7.5 g/dL Normal 6.4-8.2 [facility] Comment on above: Performed By: #### C MP ####[facility] [address] [place], [place] [address]Dr. Gypsyjuan Alon Sodium [Moles/Vol] 138 mmol/L Normal 136-145 [facility] Comment on above: Performed By: #### C MP ####[facility] [address]be[address] [place], [place] [address]Dr. Soniya Alon Urea nitrogen [Mass/Vol] 19.0 mg/dL Critically high 7.0-18.0 [facility] Comment on above: Performed By: #### C MP ####[facility] [address] [place], [place] [address]Dr. Soniya Chi Urea nitrogen/Creatinine [Mass ratio] 14.6 mg/mg Normal [facility] Comment on above: Performed By: #### C MP ####[facility] [address] [place] [address]Dr. Soniya Chi GLUCOSE BLOODon 11-29-2021 Glucose [Mass/Vol] 106 mg/dL Normal 74-106 [facility] Comment on above: Performed By: #### G COLLEEN, LIPID ####[facility] [address] [place] [address]Dr. Soniya Chi LIPID PROFILEon 11-29-2021 CHOL-HDL RATIO NORM SEE BELOW Normal [facility] Comment on above: Result Comment: 3.3 - 4.4 LOW RISK 4.4 - 7.1 AVERAGE RISK 7.1 - 11.0 MODERATE RISK >11.0 HIGH RISK Performed By: #### G COLLEEN, LIPID ####[facility] [address] [place] [address]Dr. Soniya Chi Cholesterol [Mass/Vol] 230 mg/dL Critically high <=200 [facility] Comment on above: Performed By: #### G COLLEEN, LIPID ####[facility] [address] [place] [address]Dr. Soniya Chi Cholesterol in HDL [Mass/Vol] 66 mg/dL Critically high 40-60 [facility] Comment on above: Performed By: #### G COLLEEN, LIPID ####[facility] [address] [place] [address]Dr. Soniya Chi Cholesterol in LDL [Mass/Vol] 113.2 mg/dL Normal [facility] Comment on above: Performed By: #### G COLLEEN, LIPID ####[facility] [address] [place] [address]Dr. Soniya Chi Cholesterol.total/Veronica sterol in HDL [Mass ratio] 3.5 {ratio} Normal [facility] Comment on above: Performed By: #### G COLLEEN, LIPID ####[facility] [address] [place] [address]Dr. Soniya Chi HDL NORMAL > or = 60 mg/dl - LO W CARDIOVASCULAR RISK <40 mg/dl - HIGH CARDIOVASCULAR RISK Normal [facility] Comment on above: Performed By: #### G COLLEEN, LIPID ####[facility] [address] [place], [place] [address]Ks. Soniya Chi LDL CALC NORMAL SEE BELOW Normal [facility] Comment on above: Result Comment: <100 mg/dl OPTIMAL 100 - 129 mg/dl NEAR OR ABOVE OPTIMAL 130 - 159 mg/dl BORDERLINE HIGH 160 - 189 mg/dl HIGH >190 mg/dl VERY HIGH Performed By: #### G COLLEEN, LIPID ####[facility] [address] [place], [place] [address]Ok. Soniya Chi Triglyceride [Mass/Vol] 254 mg/dL Critically high <=150 [facility] Comment on above: Performed By: #### G COLLEEN, LIPID ####[facility] [address] [place] [address]Dr. Soniya Chi VLDL CALC 50.8 mg/dL Normal [facility] Comment on above: Performed By: #### G COLLEEN, LIPID ####[facility] [address] [place] [address]Dr. Soniya Chi Vital Signs Date Time Vital Sign Value Performing Clinician Facility 10-09-2022 07:06-0400 Diastolic blood pressure 89 mm[Hg] Zaira Saravia DO Work Phone: [facility] 10-09-2022 07:06-0400 Heart rate 46 /min Zaira Saravia DO Work Phone: [facility] 10-09-2022 07:06-0400 Respiratory rate 29 /min Zaira Saravia DO Work Phone: [facility] 10-09-2022 07:06-0400 SaO2% (BldA) [Mass fraction] 99 % Zaira Saravia DO Work Phone: [facility] 10-09-2022 07:06-0400 Systolic blood pressure 112 mm[Hg] Zaira Saravia DO Work Phone: [facility] 10-08-2022 13:25-0400 Body temperature 97.11 [degF] Zaira Saravia DO Work Phone: [facility] 10-08-2022 13:21-0400 Body height 165.1 cm Zaira Saravia DO Work Phone: [facility] 10-08-2022 13:21-0400 Body mass index (BMI) [Ratio] 29.95 kg/m2 Zaira Saravia DO Work Phone: [facility] 10-08-2022 13:21-0400 Body weight 81.65 kg Zaira Saravia DO Work Phone: [facility] 06-18-2022 14:39-0500 Body temperature 97.3 [degF] MD Melva Escobedo Work Phone: [facility] 06-18-2022 14:39-0500 Diastolic blood pressure 71 mm[Hg] MD Melva Escobedo Work Phone: [facility] 06-18-2022 14:39-0500 Heart rate 63 /min MD Melva Escobedo Work Phone: [facility] 06-18-2022 14:39-0500 Respiratory rate 16 /min MD Melva Escobedo Work Phone: [facility] 06-18-2022 14:39-0500 SaO2% (BldA) [Mass fraction] 95 % MD Melva Escobedo Work Phone: [facility] 06-18-2022 14:39-0500 Systolic blood pressure 109 mm[Hg] MD Melva Escobedo Work Phone: [facility] 06-17-2022 09:00-0500 Body weight 70.76 kg MD Melva Escobedo Work Phone: [facility] 06-12-2022 10:32-0500 Body height 154.94 cm MD Melva Escobedo Work Phone: [facility] Encounters Encounter Date Encounter Type Care Provider Facility Start: 02-24-2024 ambulatory Keya L Ezequiel Facility: [facility] Start: 01-10-2024 ambulatory Keya L Ezequiel Facility: [facility] [place] Start: 06-11-2023 End: 06-11-2023 Lab Drop off Keya L Ezequiel [facility] Start: 04-29-2023 End: 04-29-2023 ambulatory JOSEPH DOMINGUEZ Not Available Start: 02-21-2023 End: 02-22-2023 ambulatory [facility] Start: 02-04-2023 End: 02-05-2023 ambulatory Keya L Ezequiel Facility:[facility] Start: 11-28-2022 ambulatory Marty Brewer acility:[facility] Start: 10-23-2022 ambulatory MELVA ESCOBEDO Facility:[facility] Start: 10-09-2022 End: 10-13-2022 Evaluation and management of inpatient Jamil Lundberg Facility:[facility] Start: 10-08-2022 End: 10-09-2022 Emergency department patient visit [facility] Start: 10-08-2022 End: 10-09-2022 Emergency department patient visit Zaira Saravia DO Work Phone: [facility] ED Comment on above: Altered mental statu s, unspecified altered mental status type (Primary Dx); Hypernatremia; Urinary tract infection without hematuria, site unspecified Start: 10-08-2022 End: 10-08-2022 ambulatory [facility] Start: 10-08-2022 End: 10-08-2022 Subsequent hospital visit by physician Jamil Lundberg MD Work Phone: [facility] Start: 10-05-2022 End: 10-06-2022 ambulatory NHAN Austin [facility] Start: 10-04-2022 End: 10-05-2022 ambulatory [facility] Start: 10-04-2022 End: 10-04-2022 Subsequent hospital visit by physician Jamil Lundberg MD Work Phone: [facility] Start: 10-03-2022 End: 10-03-2022 [facility] Start: 10-02-2022 End: 10-02-2022 Subsequent hospital visit by physician Jamil Lundberg MD Work Phone: [facility] Start: 09-28-2022 End: 09-29-[address] MELVA ESCOBEDO . Facility:[facility] Start: 09-16-2022 End: 09-17-[address] MELAV ESCOBEDO . Facility:[facility] Start: 09-16-2022 End: 09-16-2022 ambulatory [facility] Start: 09-10-2022 End: 09-11-2022 ambulatory MELVA ESCOBEDO [facility] Start: 08-27-2022 End: 08-28-2022 ambulatory [facility] Start: 08-27-2022 End: 08-27-2022 Subsequent hospital visit by physician Jamil Lundberg MD Work Phone: [facility] Start: 08-25-2022 End: 08-26-2022 ambulatory [facility] Start: 08-25-2022 End: 08-25-2022 Subsequent hospital visit by physician Jamil Lundberg MD Work Phone: [facility] Start: 08-16-2022 End: 08-22-2022 Evaluation and management of inpatient DR MELVA ESCOBEDO . Facility:[facility] Start: 08-15-2022 End: 08-15-[address] MELVA ESCOBEDO . Facility:[facility] Start: 08-13-2022 End: 08-14-[address] MELVA ESCOBEDO . Facility:[facility] Start: 08-13-2022 End: 08-14-2022 ambulatory MEVLA ESCOBEDO [facility] Start: 08-01-2022 ambulatory Keya Nieves Facility: [facility] [place] Start: 05-30-2022 End: 06-18-2022 Evaluation and management of inpatient Judith Cordoba Facility:[facility] Start: 05-30-2022 End: 06-18-2022 Evaluation and management of inpatient MD Melva Escobedo Work Phone: [facility] Work Phone: Start: 05-28-2022 End: 05-30-2022 [...] Start: 11-29-2021 End: 11-30-2021 ambulatory DORA LAZARO Facility: Procedures Date Procedure Procedure Detail Performing Clinician Start: 10-09-2022 Basic metabolic pane l calcium total Zaira Saravia DO Work Phone: Start: 10-09-2022 Basic metabolic pane l calcium total Zaira Saravia DO Work Phone: Start: 10-09-2022 Basic [...] w/le ast 12 lds i&r only Zaira aSravia DO Work Phone: Start: 10-08-2022 Basic metabolic pane l calcium total Melva Morales [employer] SERVICE ATTENDANT - ADAPTED PH[employer]ICAL EDUCATION TEACHER Work Phone: Start: 10-04-2022 Comprehensive metabo lic panel Jamil Lundberg MD Work Phone: Start: 10-04-2022 Lipid panel Jamil pierce MD Work Phone: Start: 10-02-2022 Assay of thyroid stimulating hormone tsh Jamil Lundberg MD Work Phone: Start: 08-27-2022 Basic metabolic pane l calcium total Mee Hoffmann TANKER SERVICE ATTENDANT - ADAPTED PHYSICAL EDUCATION TEACHER Work Phone: Start: 08-25-2022 Urnls dip stick/tabl et rgnt auto w/o microscopy Azul Thompson MD Work Phone: Start: 06-15-2022 Influenza A and B vi annemarie antigen assay MD Melva Escobedo Work Phone: Start: 06-15-2022 Urine culture MD Melva quigley Work Phone: Start: 06-11-2022 CT of head without contrast MD Melva Escobedo Work Phone: Start: 06-04-2022 CT of head without contrast MD Melva Escobedo Work Phone: Start: 01-31-2019 Colonoscopy Keya Schwa b Start: 04-28-2017 Cataract extraction and insertion of intraocular lens Keya Nieves Comment on above: CATARACT EXTRACTION WITH INTRAOCULAR LENS IMPLANTATION RIGHT EYE Tonsillectomy and adenoidectomy Keya Nieves Plan of Treatment Date Care Activity Detail Author Start: 12-16-2031 DTaP/Tdap/Td vaccine (2 - Tdap) DTaP/Tdap/Td vaccine (2 - Tdap) [facility] [employer] [facility] Start: 10-05-2027 Lipid panel Lipids [facility] [employer] Start: 12-31-2022 Influenza vaccination Flu vacc ine (Season Ended) [facility] Start: 08-25-2022 Annual Wellness Visi t (AWV) Annual Wellness Visit (AWV) [facility] Start: 06-18-2022 [facility] Start: 06-15-2022 [facility] Start: 06-15-2022 Referral to ear nose throat physician [facility] Start: 05-30-2022 Hospital admission [facility] Start: 12-31-2021 Influenza vaccination Flu vaccine (# 1) [facility] Start: 02-16-2021 Pneumococcal 65+ yea rs Vaccine (2 - PPSV23 if available, else PCV20) Pneumococcal 65+ years Vaccine (2 - PPSV23 if available, else PCV20) [facility] Start: 2009 Screening for osteoporosis DEX A (modify frequency per FRAX score) [facility] [employer] Start: 2004 Screening for malign ant neoplasm of breast Breast cancer screen [facility] Start: 2004 Shingles vaccine (1 of 2) Stauffer gles vaccine (1 of 2) [facility] [employer] Start: 11-28-1999 Screening for malign ant neoplasm of colon [facility] [employer] Start: 1989 Diabetes screen Diabetes screen [facility] Start: 1973 DTaP/Tdap/Td vaccine (1 - Tdap) DTaP/Tdap/Td vaccine (1 - Tdap) [facility] [employer] Start: 1972 Hepatitis C screening Hepatitis C sc reen [facility] Start: 1966 Depression Screen Depression Screen [facility] Start: 05-29-1955 COVID-19 Vaccine (#1) COVID-19 Vacci ne (#1) [facility] End: 10-11-2022 Basic metabolic 2000 panel - Serum or Plasma Basic Metabolic Panel Lab STAT Every 2 Hours (Lab) for 35 Occurrences starting 10/08/2022 until 10/11/2022, 5 completed [facility] Work Phone: Comment on above: Every 2 Hours (Lab) for 35 Occurrences starting 10/08/2022 until 10/11/2022, 5 completed End: 08-25-2022 Culture, Urine [facility] Work Phone: Comment on above: Once for 1 Occurrenc es starting 08/25/2022 until 08/25/2022 End: 10-08-2022 Culture, Urine [facility] Work Phone: Comment on above: Once for 1 Occurrenc es starting 10/08/2022 until 10/08/2022 Patient Education Schizophrenia (DC) [facility] DC Instructions [facility] Work Phone: Patient referral [facility] Work Phone: End: 10-02-2022 T3 [facility] Work Phone: Comment on above: Once for 1 Occurrenc es starting 10/02/2022 until 10/02/2022 End: 10-02-2022 T4 [facility] Work Phone: Comment on above: Once for 1 Occurrenc es starting 10/02/2022 until 10/02/2022 End: 10-02-2022 Thyroxine (T4) free [Mass/volume] in Serum or Plasma [facility] Work Phone: Comment on above: Once for 1 Occurrenc es starting 10/02/2022 until 10/02/2022 End: 10-02-2022 Triiodothyronine (T3) Free [Mass/volume] in Serum or Plasma [employer] Work Phone: Comment on above: Once for 1 Occurrenc es starting 10/02/2022 until 10/02/2022 [facility] Immunizations Immunization Date Immunization Notes Care Provider Fa lindajeimy 03-09-2022 SARS-CoV-2 (COVID-19 ) [id number] [facility] Comment on above: Result Comment: 2022: [id number] 02-14-2022 influenza virus vaccine, unspecified formulation Keya Ezequiel [facility] 03-29-2021 SARS-CoV-2 (COVID-19 ) mRNA-1273 vaccine Keya Ezequiel [facility] Comment on above: Result Comment: 2022: [id number] 01-27-2021 influenza virus vaccine, unspecified formulation Keya Ezequiel [facility] 08-23-2020 SARS-CoV-2 (COVID-19 ) mRNA-1273 vaccine Keya Ezequiel [facility] 07-27-2020 SARS-CoV-2 (COVID-19 ) mRNA-1273 vaccine Keya Ezequiel [facility] 02-17-2020 pneumococcal conjuga te vaccine, 13 valent Keya Ezequiel [facility] 02-20-2019 influenza virus vaccine, unspecified formulation Keya Ezequiel [facility] 03-31-2018 influenza virus vaccine, unspecified formulation Keya [facility]equ[facility] Payers Date Payer Category Payer Private Health Insurance 2022 Medicare [id number] 2022 Self-pay 1959 Private Health Insurance [id number] 1954 Unknown [id number] 2.16.840.1.813795.3.579.2.593 1954 Unknown [id number] 2.16.840.1.054647.3.579.2.593 1954 Unknown [id number] 2.16.840.1.556495.3.579.2.593 1954 Unknown [id number] 2.16.840.1.464069.3.579.2.593 1954 Unknown [id number] 2.16.840.1.870887.3.579.2.593 1954 Unknown [id number] 2.16.840.1.912268.3.579.2.593 1954 Unknown [id number] 2.16.840.1.505584.3.579.2.593 1954 Unknown [id number] 2.16.840.1.372899.3.579.2.593 1954 Unknown [id number] 2.16.840.1.072244.3.579.2.593 1954 Unknown [id number] 2.16.840.1.495222.3.579.2.593 1954 Unknown [id number] 2.16.840.1.479580.3.579.2.593 1954 Unknown [id number] 2.16.840.1.123048.3.579.2.593 1954 Unknown [id number] 2.16.840.1.768863.3.579.2.593 1954 Unknown [id number] 2.16.840.1.959983.3.579.2.593 1954 Unknown [id number] 2.16.840.1.643486.3.579.2.593 1954 Unknown [id number] 2.16.840.1.499174.3.579.2.173 1954 Unknown [id number] 2.16.840.1.482598.3.579.2.173 1954 Unknown [id number] 2.16.840.1.215854.3.579.2.173 1954 Unknown [id number] 2.16.840.1.406743.3.579.2.196 1954 Unknown [id number] 2.16.840.1.289751.3.579.2.1259 1954 Unknown [id number] 2.16.840.1.593093.3.579.2.727 1954 Unknown [id number] 2.16.840.1.294480.3.579.2.727 1954 Unknown [id number] 2.16.840.1.559270.3.579.2.727 1954 Unknown [id number] 2.16.840.1.273519.3.579.2.727 1954 Unknown [id number] 2.16.840.1.058605.3.579.2.727 1954 Unknown [id number] 2.16.840.1.303129.3.579.2.727 1954 Unknown [id number] 2.16.840.1.760645.3.579.2.727 1954 Unknown [id number] 2.16.840.1.737340.3.579.2.727 Unknown [place] [employer] [id number] [id number] Unknown [id number] 2.16.840.1.077271.3.579.2.531 Unknown [id number] 2.16.840.1.460235.3.579.2.531 Social History Date Type Detail Facility Start: 06-15-2022 End: 06-11-2023 Tobacco smoking status MOIS Never smoked tobacco (finding) [facility] Comment on above: Never a smoker Start: 1955 Sex Assigned At Female F [facility] Tobacco smoking status [facility] Tobacco smoking consumption unknown BON [employer] Phone: Start: 1955 Sex Assigned At Not on file B ON [employer] Phone: Tobacco smoking status Never [facility] Comment on above: Never a smoker Sex Assigned At Female [facility] Goals Date Patient Goal Desired Activity /State Functional Status Date Assessment Result Facility 06-18-2022 Functional status Patient is Pro gressing Toward Baseline [facility] [employer] Work Phone: 05-30-2022 Functional status Disability Sta tus Patient at Baseline [facility] [employer] Work Phone: Mental Status Date Assessment Result Facility 06-18-2022 Cognitive function Cognitive Sta tus Patient is Progressing Toward Baseline [facility] [employer] Work Phone: Clinical Notes 05-31-2022 to 10-13-2022 Note Date & Type Note Facility 10-13-2022 Note Admission Informatio n Patient: Marley Osborn : 1955 Date of Admission: 10/09/2022 08:56:04 Date of Discharge: 10/13/2022 16:45:00 Code Status: [place] DNR - CC Comfort Care PCP: Tamika [...] psychosis in a catatonic state, transferred from [facility] after presenting to their emergency department with chief complaint of altered mental status and hypernatremia. All medical history obtained from transfer paperwork and also patient's Freddy over the phone. Patient is currently residing at [facility]. Admitted to ICU. Consult to nephrology for hyponatremia management. Patient CODE STATUS changed to DNR CC. Transferred to general medical floor on 10/10. Discussed plan of care moving forward with , and options for discharge, after discussion with palliative care opted for hospice. Patient was accepted by [facility], closer to patient's home. Patient was discharged to their facility in stable condition. Assessment: Catatonic schizophrenia Hypernatremia Hypothermia Metabolic encephalopathy Bradycardia Chronic anticoagulation on Eliquis Discharge Plan: - [facility] Discharge Time Spent with Patient: 25 [...] (OCTOBER 10) 2 (more content not included)... [facility] 10-10-2022 Note Chief Complaint Unresponsiveness Reason for Consultation Transfer from [facility] History of Present Illness This is a 66-year-old female with a history of longstanding schizophrenia who also has a history of paroxysmal atrial fibrillation and is on Eliquis 5 mg twice daily who has had multiple psychiatric hospitalizations over the last year according to the because of schizophrenia. She has been at [facility] as well as at [facility]. She has apparently been at her [...] quite lethargic and was transferred to the [facility] she was found to be hypernatremic as well as hypothermic. She had a sodium of 152 and she was transferred over to [facility]. At this time the reports that she [...] Dose: 10/10/22 13:26:00 EDT, Dispense From Location: [id number], 10/10/22 13:26:00 EDT Creatine Phosphokinase Electroencephalogram MRI [...] PRN Klor-Con M2 (more content not included)... [facility] 10-09-2022 Note Reason for Consultat ion Hypernatremia History of Present Illness This is a 66-year-old female, who was initially at [facility] and then sent to [facility] ER on 10/08/22. She has a past medical history of catatonic schizophrenia, chronic kidney disease stage unknown at this time, anemia, hypothyroid, DVT hypertension, coronary artery disease, A-fib on Eliquis, osteoporosis, with frequent admissions due to worsening confusion and psychosis in a catatonic state. She was transferred from [facility] this morning after presenting to their emergency department with chief complaint of altered mental status and hypernatremia. All medical history obtained from extensive transfer paperwork and staff. Prior to sending her to the ER she was given 2 liters of NS. Review of labs on 10/04/22 with a serum sodium of 150, potassium 3.5, CO2 30, cr 0.99. At [facility] ER she had an initial blood pressure of [...] bradycardia. According to paperwork and report from [facility], with patient's underlying psychiatric disorders, baseline ranges from appropriate behavior to catatonia. Patient was admitted to [facility] on 09/28 due to worsening confusion and psychosis and in a catatonic state. In assessment dated 09/29, patient is noncommunicative does not cooperate, does not follow commands. Upon arrival to [facility] she was noted to be hypothermic with [...] data available. Assessment/Plan 1. Hypernatremia Transferred to [facility] from [place] for hypernatremia, AMS, hypotension, hypothermia, UTI and multiple electrolyte imbalances. Sodium level on 10/04/22 was elevated at 150. Admission to [place] ER her sodium was 158 at 13:25. [...] Date: 10/09/22 16:28:00 EDT, Dispense From Location: [employer], 10/09/22 16:28:00 EDT Basic Metabolic Profile Communication [...] Normal Saline F (more content not included)... [facility] 10-09-2022 Note History of Present I llness The patient is a 66-year-old female, past medical history of catatonic schizophrenia, chronic kidney disease stage unknown at this time, anemia, hypothyroid, DVT hypertension, coronary artery disease, A-fib on Eliquis, osteoporosis, with frequent admissions due to worsening confusion and psychosis in a catatonic state, transferred from [facility] after presenting to their emergency department with chief complaint of altered mental status and hypernatremia. All medical history obtained from transfer paperwork and also patient's Freddy over the phone. Patient is currently residing at [facility]. Patient arrived to [facility] emergency department at 1317 on 10/08 from [facility], with initial blood pressure of 195/91, [...] bradycardia. According to paperwork and report from [facility], with patient's underlying psychiatric disorders, baseline ranges from appropriate behavior to catatonia. Patient was admitted to [facility] on 09/28 due to worsening confusion and psychosis and in a catatonic state. In assessment dated 09/29, patient is noncommunicative does not cooperate, does not follow commands. Patient is seen in [facility] ICU and arouses to name but no [...] psychosis in a catatonic state, transferred from [facility] after presenting to their emergency department with chief complaint of altered mental status and hypernatremia. All medical history obtained from transfer paperwork and also patient's Freddy over the phone. Patient is currently residing at [facility]. Admitted to ICU. Assessment: Catatonic schizophrenia [...] Mg, phos, cmp, cbc, lactic - d/w Pat Bakies given psych hx and she is familiar with this patient, recently evaluated at [facility], patient also catatonic during psych eval at [facility], no consult at this time but notifying of patient's admission. - D/w patient's Freddy, . Lives in [place] and will not be able to visit [...] Activity at baseline: Ambulatory, currently resides at [facility] Anticipated Discharge Location: SNF Time spent [...] Lactated Ringers Inj (more content not included)... [facility] 09-16-2022 Note Review of Systems Constitutional: Negative for malaise/fatigue. Cardiovascular: Positive for irregular heartbeat, leg swelling and palpitations. Negative for chest pain, dyspnea on exertion, near-syncope and syncope. Respiratory: Negative for shortness of breath. Neurological: Negative for dizziness, headaches and light-headedness. Marley is in the clinic today to follow up from her recent hospitalization at [facility]. She states that she feels palpitations and/or irregular heartbeats. Her home nurse that came last week stated that she thought Marley's ankles were a bit swollen. No excessive fatigue, chest pain, ABDALLA, or SOB. [facility] 09-16-2022 Note Cardiovascular Medic ine [facility] SUBJECTIVE Chief Complaint Patient presents with Follow-up Hospitalization - A-fib Edema Palpitations Marley Osborn is a 66 y.o. female here for hospital follow-up. She has known HTN, CKD III. HPI Marley is in the clinic today to follow up from her recent hospitalization at [facility]. She states that she feels palpitations and/or irregular heartbeats. Her home nurse that came last week stated that she thought Marley's ankles were a bit swollen. No excessive fatigue, chest pain, ABDALLA, or SOB. She was recently admitted to [facility] for AMS, hypothermia, hypotension, hypothyroidism, and [...] , Rfl: ergocalciferol (Vitamin D-2) 1.25 MG (44734 Units) capsule, TAKE 1 CAPSULE BY MOUTH [...] Trivial pericardial effusion (more content not included)... [facility] 09-02-2022 Note [id number] [facility] 06-17-2022 Progress note Note Date/Time June 17, 2022 2:19pm [facility] [address] [place] [address] Psychiatry Progress Note Signed Patient: Marley Osborn MR#: [id number] : 1955 Acct:[id number] Age/Sex: 66 / F Adm Date: 2 Loc: Room: [address] [place] [address] Type : ADM IN Attending Dr: Reggie [...] <Electronically signed by Reggie Quintana MD> 06/17/22 [facility] Work Phone: 1(100) 977-735801-15-2023 Consult note Author Nilo Rosales [facility] June 16, 2022 5:18pm Note Date/Time June 14, 2022 6 :43pm [facility] [address] [place] [address] Hospitalist Consult Note Signed Patient: Marley Osborn MR#: [id number] : 1955 Acct:[id number] Age/Sex: 66 / F Adm Date: 2 Loc: Room: [address] [place] [address] Type: ADM IN Attending Dr: Reggie Quintana MD Copies to: Reggie Mariano, MD MD Nilo Deleon DO Linda Obika, APRN~ HPI DATE OF [...] Flagyl and Terazol treatment for possible vaginitis, DRY CURER following ?Continue supportive care Increased creatinine?likely due to poor oral intake ?Creatinine 1.44, encouraged increased oral intake ?Monitor BMP Schizophrenia ?Continue plan of care Psychiatric team (2) Schizophrenia: Documented By: Marlene Guerra APRN 06/14/22 1842 Signed By: <Electronically signed by DENIA Guerra> 06/15/22 1538 <Electronically signed by Nilo Rosales DO> 06/16/22 1718 [facility] Work Phone: 1(620) 229-112601-15-2023 Progress note Author Marlene Guerra [facility] June 16, 2022 3:07pm Note Date/Time June 16, 2022 2 :37pm [facility] [address] [place] [address] Hospitalist Progress Note Signed Patient: Marley Osborn MR#: [id number] : 1955 Acct:[id number] Age/Sex: 66 / F Adm Date: 2 Loc: 1S Room: [address] [place] [address] Type: ADM IN Attending Dr: Reggie Quintana [...] Flagyl and Terazol treatment for possible vaginitis, DRY CURER following ?Continue supportive care Increased creatinine?likely due to poor oral intake ?Creatinine 1.44, encouraged increased oral intake ?Monitor BMP Schizophrenia ?Continue plan of care Psychiatric team (2) Schizophrenia: Documented By: Marlene Guerra APRN 06/16/22 1435 Signed By: <Electronically signed by DENIA Guerra> 06/16/22 0547 [facility] Work Phone: 1(368) 150-367001-15-2023 Progress note Author Marty brewster [facility] June 16, 2022 8:49am Note Date/Time June 16, 2022 8 :48am [facility] [address] [place] [address] Psychiatry Progress Note Signed Patient: Marley Osborn MR#: [id number] : 1955 Acct:[id number] Age/Sex: 66 / F Adm Date: 2 Loc: Room: [address] [place] [address] Type : ADM IN Attending Dr: Reggie Quintana MD Copies to: ~ Date of Service: 06/16/2022 Subjective Subjective Narrative: Ms. Osborn states she is doing better today. She appears less distracted compared to yesterday. She denied any AVH or feeling paranoid. I believe she had a change in mental status due to an active infection. DRY CURER started Flagyland an antifungal. She denied SI/HI. [...] signed by Marty Mclean MD> 06/16/22 0849 [facility] Work Phone: 1(125) 737-829101-14-2023 Progress note Author Marty brewster [facility] June 15, 2022 8:48am Note Date/Time June 15, 2022 8 :45am [facility] [address] [place] [address] Psychiatry Progress Note Signed Patient: Marley Osborn MR#: [id number] : 1955 Acct:[id number] Age/Sex: 66 / F Adm Date: 2 Loc: Room: [address] [place] [address] Type : ADM IN Attending Dr: Reggie [...] signed by Marty Mclean MD> 06/15/22 0848 [facility] Work Phone: 1(125) 139-726401-13-2023 Progress note Author Marty brewster [facility] June 14, 2022 3:56pm Note Date/Time June 14, 2022 3 :56pm [facility] [address] [place] [address] Psychiatry Progress Note Signed Patient: Marley Osborn MR#: [id number] : 1955 Acct:[id number] Age/Sex: 66 / F Adm Date: 2 Loc: 1S Room: 8G6090-6 Type : ADM IN Attending Dr: Reggie [...] explained Documented By: Marty Mclean MD 3 [id number] Signed By: <Electronically signed by Marty Mclean MD> 06/14/22 1556 [facility] Work Phone: 1(496) 576-854001-12-2023 Progress note Author Marty brewster [facility] June 13, 2022 12:12pm Note Date/Time June 13, 2022 1 2:12pm [facility] [address] [place] [address] Psychiatry Progress Note Signed Patient: Marley Osborn MR#: [id number] : 1955 Acct:[id number] Age/Sex: 66 / F Adm Date: 2 Loc: Room: [address] [place] [address] Type : ADM IN Attending Dr: Reggie [...] signed by Marty Mclean MD> 06/13/22 1212 [facility] Work Phone: 1(188) 936-605301-11-2023 Progress note Author Marty brewster [facility] June 12, 2022 9:52am Note Date/Time June 12, 2022 9 :52am [facility] [address] [place] [address] Psychiatry Progress Note Signed Patient: Marley Osborn MR#: [id number] : 1955 Acct:[id number] Age/Sex: 66 / F Adm Date: 2 Loc: Room: [address] [place] [address] Type : ADM IN Attending Dr: Reggie [...] signed by Marty Mclean MD> 06/12/22 0952 [facility] Work Phone: 1(408) 452-794901-10-2023 Progress note Author Marty brewster [facility] June 11, 2022 6:33pm Note Date/Time June 11, 2022 6 :32pm [facility] [address] [place] [address] Psychiatry Progress Note Signed Patient: Marley Osborn MR#: [id number] : 1955 Acct:[id number] Age/Sex: 66 / F Adm Date: 2 Loc: Room: [address] [place] [address] Type : ADM IN Attending Dr: Reggie [...] explained Documented By: Marty Mclean MD 3 [id number] Signed By: <Electronically signed by Marty Mclean MD> 06/11/22 1833 [facility] Work Phone: 1(674) 802-980401-09-2023 Progress note Author Marty brewster [facility] June 10, 2022 10:44am Note Date/Time June 10, 2022 10 :44am [facility] [address] [place] [address] Psychiatry Progress Note Signed Patient: Marley Osborn MR#: [id number] : 1955 Acct:[id number] Age/Sex: 66 / F Adm Date: 2 Loc: Room: [address] [place] [address] Type : ADM IN Attending Dr: Reggie [...] Pt denies visual hallucinations, SI, or HI. 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 MSE: Appearance: grossly normal.? [...] explained Documented By: Marty Mclean MD 3 0862 Signed By: <Electronically signed by Marty Mclean MD> 06/10/22 1044 [facility] Work Phone: 1(902) 776-373701-08-2023 Progress note Author Reggie Quintana [facility] June 09, 2022 12:26pm Note Date/Time June 09, 2022 12 :26pm [facility] [address] [place] [address] Psychiatry Progress Note Signed Patient: Marley Osborn MR#: [id number] : 1955 Acct:[id number] Age/Sex: 66 / F Adm Date: 2 Loc: Room: 9N5467-6 Type : ADM IN Attending Dr: Reggie [...] <Electronically signed by Reggie Quintana MD> 06/09/221225 [facility] Work Phone: 1(683) 245-631901-07-2023 Progress note Author Reggie Quintana [facility] June 08, 2022 12:13pm Note Date/Time June 08, 2022 12 :13pm [facility] [address] [place] [address] Psychiatry Progress Note Signed Patient: Marley Osborn MR#: [id number] : 1955 Acct:[id number] Age/Sex: 66 / F Adm Date: 2 Loc: Room: [address] [place] [address] Type : ADM IN Attending Dr: Reggie [...] <Electronically signed by Reggie Quintana MD> 06/08/221212 [facility] Work Phone: 1(993) 324-617501-06-2023 Progress note Author Marty brewster [facility] June 07, 2022 9:18am Note Date/Time June 07, 2022 9: 17am [facility] [address] [place] [address] Psychiatry Progress Note Signed Patient: Marley Osborn MR#: [id number] : 1955 Acct:[id number] Age/Sex: 66 / F Adm Date: 2 Loc: 1S Room: 0P4495-9 Type : ADM IN Attending Dr: Reggie [...] signed by Marty Mclean MD> 06/07/22 0918 [facility] Work Phone: 1(362) 480-623401-05-2023 Progress note Author Marty brewster [facility] June 06, 2022 6:57am Note Date/Time June 06, 2022 6: 57am [facility] [address] [place] [address] Psychiatry Progress Note Signed Patient: Marley Osborn MR#: [id number] : 1955 Acct:[id number] Age/Sex: 66 / F Adm Date: 2 Loc: Room: [address] [place] [address] Type : ADM IN Attending Dr: Reggie [...] signed by Marty Mclean MD> 06/06/22 0657 [facility] Work Phone: 1(300) 601-710301-04-2023 Progress note Author Marty brewster [facility] June 05, 2022 9:13am Note Date/Time June 05, 2022 9: 13am [facility] [address] [place] [address] Psychiatry Progress Note Signed Patient: Marley Osborn MR#: [id number] : 1955 Acct:[id number] Age/Sex: 66 / F Adm Date: 2 Loc: Room: [address] [place] [address] Type : ADM IN Attending Dr: Reggie Quintana MD Copies to: ~ Date of Service: 06/05/2022 Subjective Subjective Narrative: Ms. Osbonr seems distracted and staff noted that she [...] for cognitive impairment/dementia with MMSE score of 30 -Continue PT and OT. -CT scan of [...] signed by Marty Mclean MD> 06/05/22 0913 [facility] Work Phone: 1(506) 907-412201-03-2023 Progress note Author Marty brewster [facility] June 04, 2022 8:29am Note Date/Time June 04, 2022 8: 27am [facility] [address] [place] [address] Psychiatry Progress Note Signed Patient: Marley Osborn MR#: [id number] : 1955 Acct:[id number] Age/Sex: 66 / F Adm Date: 2 Loc: Room: [address] [place] [address] Type : ADM IN Attending Dr: Reggie [...] By: <Electronically signed by Marty Mclean MD> 06/04/22828 [facility] Work Phone: 1(198) 446-719301-02-2023 Progress note Author Marty brewster [facility] June 03, 2022 12:55pm Note Date/Time June 03, 2022 10 :30am [facility] [address] [place] [address] Psychiatry Progress Note Signed with Samia Patient: Marley Osborn MR#: [id number] : 1955 Acct:[id number] Age/Sex: 66 / F Adm Date: 2 Loc: 1S Room: [address] [place] [address] Type : ADM IN Attending Dr: Reggie [...] difficulty overnight understanding directions and needed constant [id number] prompting tocomplete tasks like going to bathroom [...] impairment/dementia with MMSE score of 11/30 -Continue risperidone 1 mg po q daily [...] 06/03/22 1223 <Electronically signed by MD TARA Vasquez> 06/03/22 1206 [facility] Work Phone: 1(927) 457-520701-01-2023 Consult note Author Elvin Khan [facility] June 02, 2022 12:01pm Note Date/Time June 01, 2022 12:13pm [facility] [address] [place] [address] Hospitalist Consult Note Signed Patient: Marley Osborn MR#: [id number] : 1955 Acct:[id number] Age/Sex: 66 / F Adm Date: 2 Loc: Room: [address] [place] [address] Type: ADM IN Attending Dr: Reggie Quintana MD Copies to: MD Elvin Noel MD Kim E Knight, MD Paula G Smith, TANKER SERVICE ATTENDANT~ HPI DATE OF CONSULTATION: 06/01/22 REQUESTING PROVIDER: Reggie Quintana Consult Narrative Reason for Consult: Anemia, hypokalemia, and confusion HPI: Mrs. Osbonr is a 66-year-old female with a PMH of schizophrenia, dementia, and HTN that was transferred to [facility] for MHP from [facility] where she was hospitalized for increasing confusion and aggression. Patient seen and evaluated in 1 S., she is sitting in a table eating lunch. She is alert. She denies chest pain, shortness of breath. She denies dysuria. She denies fever, chills. She was admitted to [facility] and work-up included a CT [...] was previously treated with IV levofloxacin at [facility] for UTI. Hospitalist team has been consulted for medical management of anemia, hypokalemia, UTI, and confusion. Thank you for this consultation. Review of Systems Review of Systems Review of systems: A 10 point review of systems was obtained, negative unless noted in the HPI or below. [facility] Vaccinated for COVID-19?: No Medical History (Updated [...] % (Auto) 57.4, Lymph % (Auto) 26.3, [place] % (Auto) 11.7, Eos % (Auto) 4.1, Baso % (Auto) 0.5, Nucleat RBC Rel Count 0.3, Neut # (Auto) 2.9, Lymph # (Auto) 1.3, [place] # (Auto) 0.6, Eos # (Auto) 0.2, Baso # (Auto) 0.0 05/31/22 21:37: Urine Color Yellow, Urine Appearance Clear, Urine pH 5.5, Ur Specific [place] 1.030, Urine Protein Negative, Urine Glucose (UA) [...] UA repeated, culture pending ? Sensitivity from [facility] shows Streptococcus agalactiae ? Oral levofloxacin x3 days Confusion could be secondary to UTI or increasing dementia ? Check TSH, B12, folate HTN ? Continue to monitor Documented By: Anca Wheeler APRN 06/01/22 1211 Signed By: <Electronically signed by DENIA Wheeler> 06/01/22 1246 <Electronically signed by Elvin Khan MD> 06/02/22 1201 [facility] Work Phone: 1(263) 171-519101-01-2023 Progress note Author Marty brewster [facility] June 02, 2022 9:23am Note Date/Time June 02, 2022 9: 23am [facility] [address] [place] [address] Psychiatry Progress Note Signed Patient: Marley Osborn MR#: [id number] : 1955 Acct:[id number] Age/Sex: 66 / F Adm Date: 2 Loc: Room: [address] [place] [address] Type : ADM IN Attending Dr: Reggie [...] signed by Marty Mclean MD> 06/02/22 0923 [facility] Work Phone: 1(872) 471-825412-31-2022 Progress note Author Marty brewster [facility] June 01, 2022 8:51am Note Date/Time June 01, 2022 8:50am [facility] [address] [place] [address] Psychiatry Progress Note Signed Patient: Marley Osborn MR#: [id number] : 1955 Acct:[id number] Age/Sex: 66 / F Adm Date: 2 Loc: Room: [address] [place] [address] Type : ADM IN Attending Dr: Reggie Quintana MD Copies to: ~ Date of Service: 06/01/2022 Subjective Subjective Narrative: Ms. Osborn is a 66 year old female transferred from [facility] where she was admitted 05/27 for [...] difficulty. History of schizophrenia with multiple hospitalizations. [facility] ED ruled out CVA with negative head CT and negative head/neck CTA. -Continue risperidone per -Given recent UTI with altered mental status, repeat UA today. Received IV levaquin while at [facility] beginning 05/27. Cultures pending at time of transfer. -CBC, BMP labs to monitor signs of infection, electrolytes -Fall risk; continue safety precautions -Continue to monitor mental status -Risks, benefits, and alternatives of treatment explained -Consult hospitalist for underlying medical problems. Documented By: Marty Mclean MD 2 0849 Signed By: <Electronically signed by Marty Mclean MD> 06/01/22 0851 [facility] Work Phone: 1(865) 445-796912-30-2022 History and physical note Author Reggie Quintana [facility] May 31, 2022 1:20pm Note Date/Time May 31, 2022 11:07am [facility] [address] [place] [address] Psychiatry H&P Signed Patient: Marley Osborn MR#: [id number] : 1955 Acct:[id number] Age/Sex: 66 / F Adm Date: 2 Loc: Room: [address] [place] [address] Type: ADM IN Attending Dr: Reggie Quintana MD Copies to: MD Melva Noel MD Rebecca Howard, MD, RES~ Date of Service: 05/31/2022 HPI History of Present Illness History of present illness: Ms. Osborn is a 66 year old female transferred from [facility] where she was admitted 05/27 for UTI with confusion, dysphagia, and incomprehensible, slurred speech. According to nursing admit notes, she has been displaying more aggressive behavior hitting , jumping on bed, and breaking things at home. She has reportedly had hallucinations since March. Her outpatient psychiatrist increased her risperidone 2-3 months ago in response to these symptoms. Reported discharge from [facility] 3 weeks ago; I cannot see record [...] Not oriented to time; states mother in [address] . Fall precautions in place CNII: Visual [...] difficulty. History of schizophrenia with multiple hospitalizations. [facility] ED ruled out CVA with negative head CT and negative head/neck CTA. -Restarted home risperidone, dose increased to 3mg. To increase to twice daily beginning tomorrow. -Discontinued home Abilify for concerns of polypharmacy. -Given recent UTI with altered mental status, repeat UA today. Received IV levaquin while at [facility] beginning 05/27. Cultures pending at time of transfer. -CBC, BMP labs to monitor signs of infection, electrolytes -Fall risk; continue safety precautions -Continue to monitor mental status -Risks, benefits, and alternatives of treatment explained Documented By: Reggie Quintana MD 05/31/22 1054 Signed By: <Electronically signed by Reggie Quintana MD> 05/31/22 1320 <Electronically signed by MD TARA Vasquez> 05/31/22 1222 [facility] Work Phone: Discharge summary Author Reggie Quintana [facility] June 18, 2022 2:21pm Note Date/Time June 18, 2022 2 :21pm [facility] [address] [place] [address] Discharge Summary Signed Patient: Marley Osborn MR#: [id number] : 1955 Acct:[id number] Age/Sex: 66 / F Adm Date: 2 Loc: Room: [address] [place] [address]: Reggie Quintana MD Copies to: [...] [facility] 66 [facility] with confusion, dysphagia, andincomprehensible, slurred speech.? According to nursing admit notes, she has been displaying more aggressive behavior hitting , jumping on bed, and breaking things at home.? She has reportedly had hallucinations since March. Her outpatient psychiatrist increased her risperidone 2-3 months ago in responseto these symptoms. Reported discharge from [facility] 3 weeks ago; I cannot see record [...] diet. No activity restrictions. Instructions: Schizophrenia (DC), [facility] DC Instructions Prescriptions: New risperidone [...] Ordered By: Reggie Quintana Follow Up: [facility] [Outside] - 06/19/22 9:15 am (Case Management: Friday06/17/22 11:15am, Yusra will call you for a discharge follow up. Psychiatry: 07/02/22 at 10:30am with Dr. Lazaro) [facility] Hotline [Outside] Melva Escobedo MD [Primary Care Provider] - 06/24/22 1:30 pm (for home health referral) Documented By: Reggie Quintana MD 06/18/22 1419 Signed By: <Electronically signed by Reggie Quintana MD> 06/18/22 1421 [facility] Work Phone: Evaluation + Plan note Future Appointments Appointment Date:06/24/2023 01:40:00 PM Scheduled Provider:Keya Lucas Location:[facility] Appointment Type: Open Appointment Date:02/24/2024 11:00:00 AM Scheduled Provider: Location:[facility] Appointment Type:FM Medicare Wellness Subsequent Diagnostic Tests Pending * T3 Free [facility] Diagnosis Onset Date Resolution Status AMS (altered mental status) acute Anemia acute Confusion acute HTN (hypertension) acute Hypokalemia acute Neurocognitive disorder acut e Schizophrenia acute UTI (urinary tract infection) acute Vaginitis acute [facility] Work Phone: Evaluation note* Diagnosis Altered mental status, unspecified altered mental status type- Primary Hypernatremia Hyperosmolality and/or hypernatremia Urinary tract infection without hematuria, site unspecified documented in this encounter [facility] Work Phone: Hospital course Narrative No data available for this section [facility] instructionsAmbulatory Orders* DME Home Medical Equipment Time Frame: 1 Year, Location: Determined By Patient Additional Instructions Regular diet. No activity restrictions.[facility] Work Phone: Hospital Discharge instructions No data available for this section [facility] No data available for this section [facility] Chief Complaint and Reason for Visit Chief Complaint Schizophrenia Reason for Visit AMS (altered mental status) Anemia Confusion HTN (hypertension) Hypokalemia Neurocognitive disorder Schizophrenia UTI (urinary tract infection) Vaginitis Advance Directives Advance Directive Response Recorded Date/ Time Advance Directives No May 2:56pm Summary Purpose Family History No Family History Records FoundNo Family History Records FoundNo Family History Records FoundNo Family History Records FoundNo Family History Records FoundNo Family History Records FoundNo Family History Records Found No data available for this section Additional Source Comments Care Teams (unrecognized sec tion and content) Personnel Name: Keya Lucas Address: Address: [address] [place] [address]- Team Status: Inactive Member Role Status Dates Melva Escobedo MD Primary Care Provider Active Reggie Quintana MD Admit Provider, Attending Provider Active Judith Cordoba MD Other Provider Active Team Status: Active Member Role Status Dates Melva Escobedo MD Primary Care Provider Active Elder Assistant Relationship Specialty Start Date End Date Jamil Lundberg MD [address] [place] [address] PCP - General Psychiatry 08/25/22 Elder Assistant Relationship Specialty Start Date End Date Jamil Lundberg MD [address] [place] [address] PCP - General Psychiatry 08/25/22 Elder Assistant Relationship Specialty Start Date End Date Jamil Lundberg MD [address] [place] [address] PCP - General Psychiatry 08/25/22 Elder Assistant Relationship Specialty Start Date End Date Jamil Lundberg MD [address] [place] [address] PCP - General Psychiatry 08/25/22 Elder Assistant Relationship Specialty Start Date End Date Jamil Lundberg MD [address] [place] [address] PCP - General Psychiatry 08/25/22 Elder Assistant Relationship Specialty Start Date End Date Jamil Lundberg MD [address] [place] [address] PCP - General Psychiatry 08/25/22 INFORMATION SOURCE (unrecogn ized section and content) DATE CREATED AUTHOR 09/17/2022 [facility] DATE CREATED AUTHOR AUTHOR'S ORGANIZ ATION 10/10/2022 [facility] DATE CREATED AUTHOR AUTHOR'S ORGANIZ ATION 10/11/2022 [facility] DATE CREATED AUTHOR AUTHOR'S ORGANIZ ATION 10/15/2022 [facility] DATE CREATED AUTHOR AUTHOR'S ORGANIZ ATION 04/30/2023 [facility] EPIC DATE CREATED AUTHOR AUTHOR'S ORGANIZ ATION 05/29/2023 [facility] DATE CREATED AUTHOR AUTHOR'S ORGANIZ ATION 06/09/2023 [facility] Reason for Visit (unrecogniz ed section and [...] Infection 1628 (New Bag - Provider: Hafsa Hermosillo, RN) 0557 (Stopped - Provider: Ifeoma Montana RN - Comment: Prior to this RN arrival) Continuous Medication Order 10/07/2022 10/08/2022 10/09/2022 dextrose 5 % in lactated ringers infusion IntraVENous, at 100 mL/hr, CONTINUOUS, Starting on Fri10/08/22 at 1700 1729 (New Bag - Provider: Hafsa Hermosillo RN) 0800 (Patient Transferred to Other Facility - Provider: Johanne Conroy, CHRISTIAN) FOR RECORDS PERTAINING TO PATIENTS WHO ARE [...] BE BASED ON THE PRIMARY CLINICAL RECORDS. [facility] [facility]. provides no warranty or guarantee of the accuracy or completeness of information in this document.
== END 2023-07-02 19:49 | disposition home or self-care (01) ==
LOC: SLEEP 19:48
PROVIDERS: PCP Nurse Practitioner; Visit Provider Nurse Practitioner
DX: G47.33 Obstructive sleep apnea (adult) (pediatric) (principal)
CPT/HCPCS: 95811

== ENCOUNTER 2023-07-18 10:11 | Outpatient (OUT) | payer MEDICARE, SELFPAY ==
--- NOTE | 2023-07-18 | US_ITS ---
Patient Name: MARLEY OSBORN MR#: [id number] : 1955 Exam Date: 07/18/2023 Ordering Doctor: KATYA WEAVER . RADIOLOGY REPORT PROCEDURE: MM TOMOSYNTHESIS DIAGNOSTIC RT, 07/18/2023, 10:14 US BREAST RT LIMITED, 07/18/2023, 10:50 COMPARISON: MM POST BIOPSY RT, 05/05/2023. MM DIAGNOSTIC MAMMO UNILAT RT, 05/01/2023. MM TOMOSYNTHESIS SCREENING BI, 04/11/2023. MG MAMM SCREEN 3D CHANA CAD, 04/17/2022. INDICATIONS: Right Breast Mass Calculator Name NCI Breast Cancer Risk Assessment Tool 5 Year Breast Cancer Risk 5.50% Lifetime Breast Cancer Risk 16.90% Personal Breast Cancer No Personal Ovarian Cancer No Treatments None Family Cancers Mother with breast cancer at age 86; Brother with prostate cancer at age 64; Nephew with colon cancer at age 47; Grandfather-paternal with colon cancer at age ~60; Grandfather-paternal with lung cancer at age 30; Grandmother-maternal with uterine cancer at age ~50. LOCATION: [facility] BREAST COMPOSITION: Heterogeneously dense,which may obscure small masses. FINDINGS: DIAGNOSTIC CATEGORY 4--SUSPICIOUS FOR MALIGNANCY. FINDING DOES NOT EXHIBIT CLASSIC FINDINGS OF BREAST CANCER: RIGHT BREAST: Within the medial right breast approximately 3 o'clock position is a persistent, spiculated 6 mm opacity suspicious for neoplasm. Ultrasound evaluation demonstrates a nearby prior biopsy marker clip, but no suspicious mass. Stereotactic guided biopsy is recommended. RECOMMENDATIONS: STEREOTACTIC BREAST BIOPSY: RIGHT BREAST PLEASE NOTE: A NORMAL MAMMOGRAM DOES NOT EXCLUDE THE POSSIBILITY OF BREAST CANCER. A CLINICALLY SUSPICIOUS PALPABLE LUMP SHOULD BE BIOPSIED. Dictated by: Myles Abraham M.D. on 07/18/2023 at 11:10 Approved by: Myles Abraham M.D. on 07/18/2023 at 11:13
--- NOTE | 2023-07-18 10:16 | MM_ITS ---
Patient Name: MARLEY OSBORN MR#: [id number] : 1955 Exam Date: 07/18/2023 Ordering Doctor: KATYA WEAVER . RADIOLOGY REPORT PROCEDURE: MM TOMOSYNTHESIS DIAGNOSTIC RT, 07/18/2023, 10:14 US BREAST RT LIMITED, 07/18/2023, 10:50 COMPARISON: MM POST BIOPSY RT, 05/05/2023. MM DIAGNOSTIC MAMMO UNILAT RT, 05/01/2023. MM TOMOSYNTHESIS SCREENING BI, 04/11/2023. MG MAMM SCREEN 3D CHANA CAD, 04/17/2022. INDICATIONS: Right Breast Mass Calculator Name NCI Breast Cancer Risk Assessment Tool 5 Year Breast Cancer Risk 5.50% Lifetime Breast Cancer Risk 16.90% Personal Breast Cancer No Personal Ovarian Cancer No Treatments None Family Cancers Mother with breast cancer at age 86; Brother with prostate cancer at age 64; Nephew with colon cancer at age 47; Grandfather-paternal with colon cancer at age ~60; Grandfather-paternal with lung cancer at age 30; Grandmother-maternal with uterine cancer at age ~50. LOCATION: [facility] BREAST COMPOSITION: Heterogeneously dense,which may obscure small masses. FINDINGS: DIAGNOSTIC CATEGORY 4--SUSPICIOUS FOR MALIGNANCY. FINDING DOES NOT EXHIBIT CLASSIC FINDINGS OF BREAST CANCER: RIGHT BREAST: Within the medial right breast approximately 3 o'clock position is a persistent, spiculated 6 mm opacity suspicious for neoplasm. Ultrasound evaluation demonstrates a nearby prior biopsy marker clip, but no suspicious mass. Stereotactic guided biopsy is recommended. RECOMMENDATIONS: STEREOTACTIC BREAST BIOPSY: RIGHT BREAST PLEASE NOTE: A NORMAL MAMMOGRAM DOES NOT EXCLUDE THE POSSIBILITY OF BREAST CANCER. A CLINICALLY SUSPICIOUS PALPABLE LUMP SHOULD BE BIOPSIED. Dictated by: Myles Abraham M.D. on 07/18/2023 at 11:10 Approved by: Myles Abraham M.D. on 07/18/2023 at 11:13
--- OUTSIDE RECORDS SUMMARY | 2023-07-18 10:29 | XMS_ITS | CCD ---
Author Name Unknown Address [address] [place] [address] Organization [facility] Care Team Providers Care Laboratory Monitor Name Role Phone MD Melva Escobedo Primary Care Provider [phone] MD Reggie Quintana Admit Provider MD Reggie Quintana Attending Provider MD Judith Cordoba Other Provider [phone] Jamil Lundberg MD Primary Care Provider [...] H Consulting Unavailable JEFF OAKES Consulting Unavailable ESCOBEDO ., DR MELVA Laboy Consulting Unavailable ESCOBEDO ., DR MELVA Laboy Attending Unavailable ESCOBEDO ., DR MELVA Laboy Primary Care Unavailable ESCOBEDO ., DR MELVA Laboy Admitting Unavailable [place], DR KAYLEY Snow Consulting Unavailable ESCOBEDO ., [...] Unavailable Ahmed, Irfan Primary Care Unavailable Frank GLOVE FINISHER-TRUCK DRIVER, Malissa Soto Consulting Un available Alexandra ROPER, Louie Freeman Admitting Unavailable Alexandra ROPER, Louie Freeman Attending Unavailable Luz GLOVE FINISHER-TRUCK DRIVER, Cintia Rincon Consulting Unavailable Maroscher GLOVE FINISHER-TRUCK DRIVER, Rachel Delcid Consulting Margoth anusha Schulz, Cody Francis Consulting Unavailab shira Casas MD, Kei Veloz Consulting Unavailabl e Ahmed, Irfan Consulting Unavailable JOSEPH DOMINGUEZ Attending Unavailable Judith Cordoba Consulting Unavailable Melva Escobedo Primary Care Unavailable Mariano Reggie Admitting Unavailable Natalie Quintanami Attending Unavailable Marty Mclean Admitting Unavailab Marty Ames Attending Unavailab Melva Nunn Primary Care Unavailable EzequielKeya Primary Care Physician [phone] Ezequiel, JOINT FINISHER Keya L Admitting Unavailable Ezequiel, JOINT FINISHER Keya Turner Attending Unavailable Ezequiel, JOINT FINISHER Keya L Attending Unavailable MELVA ESCOBEDO Attending Unavailable MELVA ESCOBEDO Attending Unavailable Ezequiel, JOINT FINISHER Keya Turner Attending Unavailable Ezequiel, JOINT FINISHER Keya Turner Attending Unavailable Ezequiel, JOINT FINISHER Keya Turner Attending Unavailable MELVA ESCOBEDO Attending Unavailable Ezequiel, JOINT FINISHER Keya L Attending Unavailable Ezequiel, JOINT FINISHER Keya L Attending Unavailable Ezequiel, JOINT FINISHER Keya L Attending Unavailable Allergies Allergy Classification Reported Allergen(s) Allergy Type Date of Onset Reaction(s) Facility (4 sources) Amoxicillin; Translations: [Amoxicillin] Drug Allergy 5 [facility] (5 sources) Cephalexin; Translations: [CEPHALEXIN] Drug Allergy 2 [facility] (3 sources) Lactose; Translations: [lactose] Drug Allergy 5 [facility] (2 sources) Sulfonamides (Antibiotic); Translations: [Sulfa (Sulfonamide Antibiotics)] Allergy to substance 2 [facility] (4 sources) Penicillins; Translations: [PENICILLINS] Propensity to adverse reactions to drug (disorder) 3 [facility] (4 sources) Sulfamethoxazole; Translations: [SULFAMETHOXAZOLE ] Drug Allergy 3 [facility] Repository (3 sources) Cephalexin; Translations: [Keflex] Drug Allergy 5 [facility] Repository (1 source) Sulfonamides (Antibiotic) Drug allergy (disorder) 5 [facility] Repository (1 source) Sulfonamides (Antibiotic); Translations: [sulfa drugs] Propensity to adverse reactions to drug (disorder) [facility] Repository Medications Current Medications Medication Drug [...] q7day, # 12 tab(s), Refills(s) 3, Pharmacy: [facility]/pharmacy #[id number], 153, cm, 02/21/23 11:33:00 EDT, [...] 06/11/23, # 270 tab(s), Refills(s) 1, Pharmacy: [facility]/pharmacy #[id number], 154.9, [...] Daily, # 90 tab(s), Refills(s) 1, Pharmacy: [facility]/pharmacy #[id number], 154.9, [...] Tablet,Er Particles/Crystals Active 20 MEQ PO Daily 30 June 11, 2022 12:00am take 20 mEq by mouth twice daily potassium chloride (KLOR-CON) 20 MEQ packet Take 20 mEq by mouth 2 times daily 0 Active QUEtiapine 50 mg oral tablet (1 source) Atypical Antipsychotic Start: 02-04-2023 take 1 tablet by mouth once daily quetiapine 50 mg oral tablet 50 mg = 1 tab(s), Oral, Daily, # 90 tab(s), Refills(s) 1, Pharmacy: [facility]/pharmacy #[id number], 154.9, [...] muscle every 14 days 0 Active sennosides, intermediate 8.6 mg oral tablet (1 source) Start: 06-11-2023 take 1 tablet by mouth twice daily senna 8.6 mg Tab 8.6 mg = 1 tab(s), Oral, BID, # 60 tab(s), Refills(s) 5, Pharmacy: [facility]/pharmacy #[id number], 153, cm, 02/21/23 11:33:00 EDT, [...] 09-16-2022 Episodic Other aftercare (5 sources) Other usp (current) drug therapy; Translations: [OTH RESIDENTIAL CURRENT DRUG THERAPY] Onset: 11-29-2021 Episodic Other [...] Results Test Name Value Interpretation Reference Range Jaspreet andrews Physician Orderon 07-04-2023 Physician Order [id number] 10#1.00TIFF Normal [facility] Sleep Studieson 07-04-2023 Sleep Studies [id number] CA#1.00TIFF Normal [facility] Ambulatory Visit Summaryon 0 06-24-2023 Ambulatory Visit Summary MARLEY OSBORN :1955 Visit Date:06/24/2023 Ambulatory Visit Instructions Your Diagnosis Fatigue Daytime somnolence Gasping for breath LISA (obstructive sleep apnea) Drooling Vitamin D deficiency BMI 33.0-33.9,adult Non-smoker Your Care Team Attending Physician - Keya Lucas Primary Care Physician - Keya Lucas This Is Your Medications List Misc Prescription (Handicap Placard) acetaminophen alendronate (Fosamax 70 mg Tab) bisacodyl ergocalciferol (Vitamin D 50,000 intl units (1.25 mg) oral capsule) haloperidol (haloperidol 5 mg Tab) levothyroxine (levothyroxine 50 mcg (0.05 mg) Tab) quetiapine (quetiapine 50 mg oral tablet) senna (senna 8.6 mg Tab) Procedures Performed Colonoscopy (01/2019), CEIOL - Cataract extraction and insertion of intraocular lens (04/28/2017), Tonsillectomy and adenoidectomy. Discharge Vitals Heart Rate (Peripheral) 58 Respiratory Rate 16 Blood Pressure 126/74 Height 152.0 cm Height 60 in Weight 77.3 kg Weight 170.06 lb BMI 33.46 What to do next Scheduled Follow-Up Appointments Friday 1:40 PM EDT With: Keya Lucas Where: [facility] Normal [address] [place] [phone] \.br\ Medications\.br\ What How Much When Why Instructions\.br\ New ergocalciferol (Vitamin D 50,000 intl units (1.25 mg) oral capsule) 1 Capsules By Mouth Every week Fatigue Daytime somnolence Gasping for breath LISA (obstructive sleep apnea) Drooling BMI 33.0-33.9,adult Non-smoker Refills: 3 Pickup at [facility]/pharmacy #[id number]\.br\ Unchanged acetaminophen 500 Milligram Every 6 hours as needed for as needed for pain\.br\ Unchanged alendronate (Fosamax 70 mg Tab) 1 Tablets By Mouth Every 7 days Osteopenia\.br\ Unchanged bisacodyl 10 Milligram By rectum As needed for as needed for constipation\.br\ Unchanged haloperidol (haloperidol 5 mg Tab) 1 Tablets By Mouth 2 times a day changed to BID \.br\ Unchanged levothyroxine (levothyroxine 50 mcg (0.05 mg) Tab) 1 Tablets By Mouth Every day\.br\ Unchanged Misc Prescription (Handicap Placard) See instructions Annual visit for general adult medical examination without abnormal findings Anxiety disorder Major depression with psychotic features Fall 5 years \.br\ Unchanged quetiapine (quetiapine 50 mg oral tablet) 1 Tablets By Mouth Every day\.br\ Unchanged senna (senna 8.6 mg Tab) 1 Tablets By Mouth 2 times a day\.br\ Pharmacy Information\.br\ [facility]/pharmacy #[id number]: [address], [place] [phone]\.br\ Allergies\.br\ Keflex (rash)\.br\ penicillins (rash)\.br\ sulfamethoxazole (rash)\.br\ Problems\.br\ Ongoing - Any problem that you are currently receiving treatment for.\.br\ Anxiety disorder\.br\ Daytime somnolence\.br\ Drooling\.br\ Fatigue\.br\ Gasping for breath\.br\ HTN (hypertension)\.b r\ Hyperlipidemia, unspecified\.br\ Hypothyroid\.br\ Loss of memory\.br\ Major depression with psychotic features\.br\ LISA (obstructive sleep apnea)\.br\ Osteopenia\.br\ Schizophrenia\.br \ Spasm of muscle\.br\ Vitamin D deficiency\.br\ Wellness examination\.br\ Historical - Any problem that you are no longer receiving treatment for.\.br\ Depression\.br\ Hypothyroidism\.b r\ IBS - Irritable bowel syndrome\.br\ Paranoid schizophrenia\.br \ Screening for hyperlipidemia\.b r\ Patient Survey\.br\ You may receive a survey via text or e-mail asking about your office visit. Please share your experience with us by completing your survey. We appreciate your feedback and thank you for choosing us for your care.\.br\ \.br\ [facility] Medicine Office/Clini c Noteon 06-24-2023 [facility] Medicine Office/Clinic Note HPI Staff Marley is a 67 year old female presenting for 2 weeks re check Sleepiness: SHAISTA 06/11/23 increased drooling daytime sleepiness. D/C afternoon dose of Haldol and 25mg dose of Seroquel. May have sleep apnea testing done if no improvement with day sleepiness. pt states she still feels the same amount of sleepiness and drooling has minimal improvement. History of Present Illness pt presents today for follow up on fatigue and drooling Review of Systems PHQ Score Initial Depression Screen Score: 0 SCORE ROS - Provider Constitutional: no fever, no chills, no sweats, no fatigue Respiratory: no shortness of breath, no cough, no orthopnea, no wheezing. Cardiovascular: no chest pain, no palpitations, no edema. Neurologic: no headache, no dizziness, no numbness, no weakness. Physical Exam Vitals & Measurements HR: 58(Peripheral) RR: 16 BP: 126/74 SpO2: 97% HT: 60 in HT: 152.0 cm WT: 77.3 kg WT: 170.06 lb BMI: 33.46 General: alert, no acute distress ENMT: oral mucosa moist, no pharyngeal erythema or exudate Cardiovascular: regular rate and rhythm, normal peripheral perfusion Respiratory: Lungs CTA, respirations non labored Extremities: no deformity, no trauma Neurological: oriented x 4, LOC appropriate for age, CN II-XII intact, motor strength equal & normal bilaterally, speech normal Assessment/Plan 1. Fatigue (R53.83: Other fatigue) pt c/o worsening fatigue. will order vitamin d and pt will have sleep study done at [facility]. RTC 6 months unless needed before that. Ordered: ergocalciferol, 50,000 International_Unit = 1 cap(s), Oral, qWeek, # 4 cap(s), Refills(s) 3, Pharmacy: [facility]/pharmacy #[id number], 152, cm, 06/24/23 13:38:00 EST, Height/Length Dosing, 77.3, kg, 06/24/23 13:38:00 EST, Weight Dosing 2. Daytime somnolence (R40.0: Somnolence) pt c/o worsening day time sleepiness. we decreased a small portion of her psych meds at last visit. but she is still having the issues. will send order to [facility] for sleep study Ordered: ergocalciferol, 50,000 International_Unit = 1 cap(s), Oral, qWeek, # 4 cap(s), Refills(s) 3, Pharmacy: [facility]/pharmacy #[id number], 152, cm, 06/24/23 13:38:00 EST, Height/Length Dosing, 77.3, kg, 06/24/23 13:38:00 EST, Weight Dosing 3. Gasping for breath (R06.89: Other abnormalities of breathing) wakes up gasping for air when sleeping Ordered: ergocalciferol, 50,000 International_Unit = 1 cap(s), Oral, qWeek, # 4 cap(s), Refills(s) 3, [id number], cm, 06/24/23 13:38:00 EST, Height/Length Dosing, 77.3, kg, 06/24/23 13:38:00 EST, Weight Dosing 4. LISA (obstructive sleep apnea) (G47.33: Obstructive sleep apnea (adult) (pediatric)) pt states she had testing about 10 years ago but refused to wear the mask so she never got a machine. Ordered: ergocalciferol, 50,000 International_Unit = 1 cap(s), Oral, qWeek, # 4 cap(s), Refills(s) 3, Pharmacy: [facility]/pharmacy #[id number], 152, cm, 06/24/23 13:38:00 EST, Height/Length Dosing, 77.3, kg, 06/24/23 13:38:00 EST, Weight Dosing 5. Drooling (K11.7: Disturbances of salivary secretion) pt still drooling even with decrease of haldol. educated pt that haldol causes drooling. pt verbalizes understanding Ordered: ergocalciferol, 50,000 International_Unit = 1 cap(s), Oral, qWeek, # 4 cap(s), Refills(s) 3, [id number] 152, cm, 06/24/23 13:38:00 EST, Height/Length Dosing, 77.3, kg, 06/24/23 13:38:00 EST, Weight Dosing 6. Vitamin D deficiency (E55.9: Vitamin D deficiency, unspecified) vitamin d rx sent to pharmacy 7. BMI 33.0-33.9,adult (Z68.33: Body mass index [BMI] 33.0-33.9, adult) BMI education complete Ordered: ergocalciferol, 50,000 International_Unit = 1 cap(s), Oral, qWeek, # 4 cap(s), Refills(s) 3, [id number] 152, cm, 06/24/23 13:38:00 EST, Height/Length Dosing, 77.3, kg, 06/24/23 13:38:00 EST, Weight Dosing 8. Non-smoker (Z78.9: Other specified health status) continue not smoking Ordered: ergocalciferol, 50,000 International_Unit = 1 cap(s), Oral, qWeek, # 4 cap(s), Refills(s) 3, [id number] 152, cm, 06/24/23 13:38:00 EST, Height/Length Dosing, 77.3, kg, 06/24/23 13:38:00 EST, Weight Dosing Follow-up No qualifying data available Problem List/Past Medical History Ongoing Anxiety disorder Daytime somnolence Drooling Fatigue Gasping for breath HTN (hypertension) Hyperlipidemia, unspecified Hypothyroid Loss of memory Major depression with psychotic features LISA (obstructive sleep apnea) Osteopenia Schizophrenia Spasm of muscle Vitamin D deficiency Wellness examination Historical Depression Hypothyroidism IBS - Irritable bowel syndrome Paranoid schizophrenia Screening for hyperlipidemia Procedure/Surgical History Colonoscopy (01/2019), CEIOL - Cataract extraction and insertion of intraocular lens (04/28/2017), Tonsillectomy and adenoidectomy. Medications acetaminophen, 500 mg, q6hr, PRN bisacodyl, 10 mg, Rectal, PRN Fosamax 70 mg Tab (more content not included)... Normal [facility] Comment on above: Result Comment: Elec tronically Signed By: Keya Lucas\.br\Date and Time Signed: 06/24/23 14:09 EST Physician Orderon 06-24-2023 Physician Order [id number] 05#1.00TIFF Normal [facility] T3 Freeon 06-13-2023 Free T3 [Mass/Vol] 2.4 pg/mL Invalid Interpretation Code 2.0-4.[address] [facility] Comment on above: Result Comment: Perf ormed at: [facility] [address] [id number] PhD Nazanin Nolasco Performed By: #### 2 [id number], 9564385, 5524516, 0208760, 5656402, 2621718, [id number], 33093646, 7162957 ####[facility] [address] [place] [address] Ambulatory Visit Summaryon 0 06-11-2023 Ambulatory Visit Summary MARLEY OSBORN :1955 Visit Date:06/11/2023 Ambulatory Visit Instructions Your Diagnosis Wellness examination HTN (hypertension) Hyperlipidemia, unspecified Hypothyroid Osteopenia Fatigue BMI 33.0-33.9,adult Non-smoker Your Care Team Attending Physician - Keya Lucas Primary Care Physician - Keya Lucas This Is Your Medications List [facility] Prescription (Handicap Placard) acetaminophen alendronate (Fosamax 70 mg Tab) bisacodyl haloperidol (haloperidol 5 mg Tab) levothyroxine (levothyroxine 50 mcg (0.05 mg) Tab) quetiapine (quetiapine 50 mg oral tablet) senna (senna 8.6 mg Tab) Procedures Performed Colonoscopy (01/2019), CEIOL - Cataract extraction and insertion of intraocular lens (04/28/2017), Tonsillectomy and adenoidectomy. Discharge Vitals Heart Rate (Peripheral) 60 Respiratory Rate 18 Blood Pressure 122/80 Height 152 cm Height 60 in Weight 77.7 kg Weight 170.94 lb BMI 33.63 What to do next Scheduled Follow-Up Appointments Friday 1:40 PM EST With: Ezequiel MYLES, Keya Turner Where: [facility] Normal [address] [place] [address]- \.br\ Medications\.br\ What How Much When Why Instructions\.br\ New senna (senna 8.6 mg Tab) 1 Tablets By Mouth 2 times a day Refills: 5 Pickup at [facility]/pharmacy #[id number]\.br\ Changed haloperidol (haloperidol 5 mg Tab) 1 Tablets By Mouth 2 times a day changed to BID \.br\ Changed quetiapine (quetiapine 50 mg oral tablet) 1 Tablets By Mouth Every day\.br\ Unchanged acetaminophen 500 Milligram Every 6 hours as needed for as needed for pain\.br\ Unchanged alendronate (Fosamax 70 mg Tab) 1 Tablets By Mouth Every 7 days Osteopenia\.br\ Unchanged bisacodyl 10 Milligram By rectum As needed for as needed for constipation\.br\ Unchanged levothyroxine (levothyroxine 50 mcg (0.05 mg) Tab) 1 Tablets By Mouth Every day\.br\ Unchanged Misc Prescription (Handicap Placard) See instructions Annual visit for general adult medical examination without abnormal findings Anxiety disorder Major depression with psychotic features Fall 5 years \.br\ Pharmacy Information\.br\ [facility]/pharmacy #[id number]: [address], [place] [phone]\.br\ Allergies\.br\ Keflex (rash)\.br\ penicillins (rash)\.br\ sulfamethoxazole (rash)\.br\ Problems\.br\ Ongoing - Any problem that you are currently receiving treatment for.\.br\ Anxiety disorder\.br\ Fatigue\.br\ HTN (hypertension)\.b r\ Hyperlipidemia, unspecified\.br\ Hypothyroid\.br\ Loss of memory\.br\ Major depression with psychotic features\.br\ LISA (obstructive sleep apnea)\.br\ Osteopenia\.br\ Schizophrenia\.br \ Spasm of muscle\.br\ Wellness examination\.br\ Historical - Any problem that you are no longer receiving treatment for.\.br\ Depression\.br\ Hypothyroidism\.b r\ IBS - Irritable bowel syndrome\.br\ Paranoid schizophrenia\.br \ Screening for hyperlipidemia\.b r\ Patient Survey\.br\ You may receive a survey via text or e-mail asking about your office visit. Please share your experience with us by completing your survey. We appreciate your feedback and thank you for choosing us for your care.\.br\ \.br\ [facility] Auto Diffon 06-11-2023 Basophils/100 WBC (Bld) 0.6 % Normal 0.0-2.[address] [facility] Comment on above: Order Comment: Order Added by Discern Expert. Performed By: #### 2 809243, 2885123, 3841661, 3337688, 3077128, 0253250, 408336940, 83988584, 1835613 ####[facility] [address] [place] [address] Basophils/Leukocytes Auto (Bld) [Pure # fraction] 0.0 E9/L Normal 0.0-0.[address] [facility] Comment on above: Order Comment: Order Added by Discern Expert. Performed By: #### 2 788522, 2916383, 4152445, 6134051, 7431209, 3697320, 488054083, 85615694, 3850958 ####[facility] [address] [place] [address] Eosinophils/100 WBC (Bld) 1.0 % Normal 0.0-8.[address] [facility] Comment on above: Order Comment: Order Added by Discern Expert. Performed By: #### 2 091087, 2876459, 6341687, 9111781, 8512389, 4524900, 203839841, 03752122, 1576555 ####[facility] [address] [place] [address] Eosinophils/Leukocyte s Auto (Bld) [Pure # fraction] 0.1 E9/L Normal 0.0-0.[address] [facility] Comment on above: Order Comment: Order Added by Discern Expert. Performed By: #### 2 066074, 8036216, 3338223, 7287834, 0734545, 9066186, 296497397, 25239847, 5503450 ####[address] [place] [address] Lymphocytes/100 WBC (Bld) 22.6 % Normal 14.0-50.[address] [facility] Comment on above: Order Comment: Order Added by Discern Expert. Performed By: #### 2 336584, 2927230, 0162924, 1692233, 2595459, 3584574, 729989419, 89044235, 0724174 ####[address] [place] [address] Lymphocytes/Leukocyte s Auto (Bld) [Pure # fraction] 1.3 E9/L Normal 1.0-4.[address] [facility] Comment on above: Order Comment: Order Added by Discern Expert. Performed By: #### 2 049006, 0497601, 0346169, 5729341, 2760462, 2233693, 538341531, 99992362, 2310350 ####[address] [place] [address] Monocytes/100 WBC (Bld) 5.5 % Normal 4.0-14.[address] [facility] Comment on above: Order Comment: Order Added by Discern Expert. Performed By: #### 2 311033, 4297166, 5301022, 7772189, 0585597, 8998922, 612037472, 16311095, 4293071 ####[address] [place] [address] Monocytes/Leukocytes Auto (Bld) [Pure # fraction] 0.3 E9/L Normal 0.2-1.[address] [facility] Comment on above: Order Comment: Order Added by Discern Expert. Performed By: #### 2 060336, 2984179, 3676945, 6705862, 7235916, 0997486, 264488004, 57731345, 5561582 ####[facility] [address] [place] [address] Neutrophils/100 WBC (Bld) 70.3 % Normal 36.0-75.[address] [facility] Comment on above: Order Comment: Order Added by Discern Expert. Performed By: #### 2 186429, 0178528, 5357925, 8856258, 6493267, 9585211, 125794311, 68745909, 5642301 ####[facility] [address] [place] [address] Neutrophils/Leukocyte s Auto (Bld) [Pure # fraction] 4.2 E9/L Normal 2.0-7.[address] [facility] Comment on above: Order Comment: Order Added by Discern Expert. Performed By: #### 2 319931, 4742072, 3473023, 3329081, 5823477, 6352301, 526122798, 71690045, 2045542 ####[facility] [address] [place] [address] CBC w/ Auto Diffon Erythrocyte distribution width (RBC) [Ratio] 13.9 % Normal 10.9-14.[address] [facility] Comment on above: Performed By: #### 2 033856, 6959276, 0720805, 6970744, 0883626, 5805056, 211345462, 21687936, 4947726 ####[facility] [address] [place] [address] Hematocrit (Bld) [Volume fraction] 36.1 % Normal 34.0-46.[address] [facility] Comment on above: Performed By: #### 2 432487, 8679945, 0007016, 7787798, 0803515, 9005567, 103540419, 13186125, 2629581 ####[facility] [address] [place] [address] Hemoglobin (Bld) [Mass/Vol] 12.0 g/dL Normal 12.0-16.[address] [facility] Comment on above: Performed By: #### 2 668757, 1288194, 4105663, 9829445, 6019785, 9830272, 962049289, 14796043, 0023026 ####[facility] [address] [place] [address] MCH (RBC) [Entitic mass] 29.1 pg Normal 27.0-34.[address] [facility] Comment on above: Performed By: #### 2 377264, 2935161, 9902162, 5077388, 8294411, 8675138, 659811745, 51010071, 7854148 ####[address] [place] [address] MCHC (RBC) [Mass/Vol] 33.1 g/dL Normal 31.4-36.0 [facility] Comment on above: Performed By: #### 2 240340, 2983663, 9298686, 0626841, 8855410, 5481740, 090288093, 83096897, 8463399 ####[address] [address] MCV (RBC) [Entitic vol] 87.9 fL Normal 80.0-100.[address] [facility] Comment on above: Performed By: #### 2 424527, 9740426, 3191483, 4442128, 8912543, 3785966, 835934130, 99842331, 3072264 ####[address] [place] [address] Platelet mean volume (Bld) [Entitic vol] 7.9 fL Normal 6.4-10.[address] [facility] Comment on above: Performed By: #### 2 084018, 1234035, 5319855, 4095147, 1538224, 7892163, 819792475, 04198252, 1652085 ####[address] [place] [address] Platelets (Bld) [#/Vol] 231.0 E9/L Normal 150.0-500.[address] [facility] Comment on above: Performed By: #### 2 228975, 7931055, 9771354, 8160035, 4960643, 3294214, 905714783, 46352333, 5943634 ####[facility] [address] [place] [address] RBC (Bld) [#/Vol] 4.1 E12/L Low 4.3-5.[address] [facility] Comment on above: Performed By: #### 2 938302, 5067704, 7753828, 5848993, 8020478, 2279743, 480478146, 61564563, 8122440 ####[facility] [address] [place] [address] WBC corrected for nucl RBC Auto (Bld) [#/Vol] 5.9 E9/L Normal 4.0-11.[address] [facility] Comment on above: Performed By: #### 2 629622, 3338883, 5194152, 0836694, 6417924, 6163187, 980022897, 51798615, 3390118 ####[facility] [address] [place] [address] CHEMISTRYOrdered By: SYSTEM SYSTEM on 06-11-2023 Albumin [Mass/Vol] 4.1 g/dL Normal 3.3 - 5.0 gm/dL R emisol Chem Albumin/Globulin [Mass ratio] 1.7 {ratio} Normal 1.1 - 2.2 Remisol Chem Alk Phos 99 [iU]/d High 21 - 98 Int._Unit/L Remisol Chem ALT 14 [iU]/d Normal 6 - 46 Int._Unit/L Remisol Chem Anion gap [Moles/Vol] 12 mmol/L Normal 6 - 16 mEq/L R emisol Chem AST 15 [iU]/d Normal 5 - 43 Int._Unit/L Remisol Chem Bili Total 0.8 mg/dL Normal 0.0 - 1.1 mg/dL Remisol C hem Calcium [Mass/Vol] 9.5 mg/dL Normal 8.9 - 11.1 mg/dL Remisol Chem Chloride [Moles/Vol] 105 mmol/L Normal 101 - 111 mmol/ L Remisol Chem Cholesterol [Mass/Vol] 219 mg/dL High [...] 28 mmol/L Normal 21 - 31 mmol/L Remis ol Chem Creatinine [Mass/Vol] 1.2 mg/dL Normal 0.5 - 1.3 mg/d L Remisol Chem eGFR 49 mL/min/1.73 m2 Low >=59mL/min /1.73 m2 Remisol Chem Free T4 [Mass/Vol] 0.95 ng/dL Normal 0.58 - 1.64 ng/dL Remisol Chem Globulin (S) [Mass/Vol] 2.4 g/dL Normal 1.4 - 4.0 gm/dL Remisol Chem Glucose [Mass/Vol] 97 mg/dL Normal 55 - 199 mg/dL Re misol Chem Potassium [Moles/Vol] 4.0 mmol/L Normal 3.5 - 5.3 mmol /L Remisol Chem Protein [Mass/Vol] 6.5 g/dL Normal 6.0 - 7.8 gm/dL R emisol Chem Sodium [Moles/Vol] 141 mmol/L Normal 135 - 145 mmol/L Remisol Chem Triglyceride [Mass/Vol] 167 mg/dL High <=149mg/dL Remisol Chem TSH Qn 1.81 m[IU]/L Normal 0.34 - 5.60 mcIU/mL Remisol Chem Urea nitrogen [Mass/Vol] 22 mg/dL High 5 - 21 mg/dL Remisol Chem Urea nitrogen/Creatinine [Mass ratio] 18 mg/mg Normal 10 - 20 Remisol Chem Vitamin D 25 Hydroxy 17.1 ng/mL Low 30.0 - 100.0 ng/mL Remisol Chem CMPon 06-11-2023 Albumin [Mass/Vol] 4.1 g/dL Normal 3.3-5.[address] [facility] Comment on above: Performed By: #### 2 846934, 0913743, 0404370, 2166258, 1573394, 6740697, 172666419, 72403924, 3354877 ####[address] [place] [address] Albumin/Globulin [Mass ratio] 1.7 {ratio} Normal 1.1-2.[address] [facility] Comment on above: Performed By: #### 2 074979, 2427949, 6589113, 6622898, 0767165, 2785592, 184714798, 11792459, 4013966 ####[facility] [address] [place] [address] Alk Phos 99 Int._Unit/L High 21-98 [facility] Comment on above: Performed By: #### 2 486253, 0475499, 4603045, 3194189, 4161677, 5218082, 604290388, 27531304, 9049954 ####[address] [place] [address] ALT 14 Int._Unit/L Normal 6-46 [facility] Comment on above: Performed By: #### 2 274723, 7940449, 8383693, 1901434, 2523492, 7666425, 959051642, 32213527, 2442549 ####[address] [place] [address] Anion gap [Moles/Vol] 12 mmol/L Normal 6-16 [facility] Comment on above: Performed By: #### 2 178430, 3161663, 8834938, 3977891, 2342197, 5632451, 509330436, 92797892, 3092127 ####[address] [place] [address] AST 15 Int._Unit/L Normal 5-43 [facility] Comment on above: Performed By: #### 2 342117, 4053299, 7388713, 3951294, 9165243, 1046571, 800491716, 40163088, 6432722 ####[facility] [address] [place] [address] Bili Total 0.8 mg/dL Normal 0.0-1.[address] [facility] Comment on above: Performed By: #### 2 881466, 8286502, 2933001, 9008610, 1609482, 8026152, 042204294, 30207093, 5342715 ####[facility] [address] [place] [address] BUN/Creat Ratio 18 No Units Normal 10-20 [facility] Comment on above: Performed By: #### 2 703286, 4659074, 4213342, 8463823, 2113509, 0803695, 339483303, 56604079, 0855154 ####[facility] [address] [place] [address] Calcium [Mass/Vol] 9.5 mg/dL Normal 8.9-11.[address] [facility] Comment on above: Performed By: #### 2 443480, 9162970, 2619680, 5493024, 7240517, 5795752, 404669557, 06546402, 4439659 ####[facility] [address] [place] [address] Chloride [Moles/Vol] 105 mmol/L Normal 101-111 [facility] Comment on above: Performed By: #### 2 271210, 7491454, 8003374, 0614754, 8309366, 6999531, 660842887, 65610127, 0368630 ####[facility] [address] [place] [address] CO2 [Moles/Vol] 28 mmol/L Normal 21-31 [facility] Comment on above: Performed By: #### 2 765691, 2183623, 2087567, 2778075, 3805469, 7941333, 567151520, 36863056, 5607610 ####[facility] [address] [place] [address] Creatinine [Mass/Vol] 1.2 mg/dL Normal 0.5-1.3 [facility] Comment on above: Performed By: #### 2 749261, 9244204, 7448791, 4265355, 9310215, 5886315, 152155016, 56230606, 2254065 ####[facility] [address] [place] [address] Globulin (S) [Mass/Vol] 2.4 g/dL Normal 1.4-4.[address] [facility] Comment on above: Performed By: #### 2 255691, 6078313, 0620369, 2172656, 5638039, 2020140, 387644316, 53556044, 9314165 ####[facility] [address] [place] [address] Glucose [Mass/Vol] 97 mg/dL Normal 55-[address] [facility] Comment on above: Performed By: #### 2 304044, 2504420, 8664219, 4210815, 2040494, 6104173, 757301950, 88237385, 3715493 ####[facility] [address] [place] [address] Potassium [Moles/Vol] 4.0 mmol/L Normal 3.5-5.3 [facility] Comment on above: Performed By: #### 2 997903, 6936645, 1233939, 9351554, 6381431, 5136619, 908459444, 82566309, 4675558 ####[facility] [address] [place] [address] Protein [Mass/Vol] 6.5 g/dL Normal 6.0-7.[address] [facility] Comment on above: Performed By: #### 2 474386, 4521533, 4547704, 5471874, 1505190, 6550247, 024936450, 40260072, 0192128 ####[facility] [address] [place] [address] Sodium [Moles/Vol] 141 mmol/L Normal 135-[address] [facility] Comment on above: Performed By: #### 2 779089, 9197857, 6951676, 3563495, 8809912, 9238656, 420046812, 95014116, 0567466 ####[facility] [address] [place] [address] Urea nitrogen [Mass/Vol] 22 mg/dL High 5-[address] [facility] Comment on above: Performed By: #### 2 090760, 7594118, 4999285, 7707621, 8286941, 3445596, 655282691, 98002327, 5693624 ####[facility] [address] [place] [address] Family Medicine Office/Clini c Noteon 06-11-2023 Family Medicine Office/Clinic Note HPI Staff Marley is a 67 year old female presenting to discuss Pt feeling tired when waking up in the morning, Pt is sleeping all night and is sleeping a lot during the day. Pt goes to exercise 3 times a week. Pt states when getting up she is unsteady of her feet sometimes. Pt is having periods were her mouth is open and she will drool. Pt feels like she is feeling out of it. Needs refill on Senna History of Present Illness pt presents today for annual wellness visit. will draw labs. pt c/o daytime sleepiness and drooling. also feels unsteady on her feet. Review of Systems PHQ Score Initial Depression Screen Score: 0 SCORE ROS - Provider Constitutional: no fever, no chills, no sweats, no fatigue Respiratory: no shortness of breath, no cough, no orthopnea, no wheezing. Cardiovascular: no chest pain, no palpitations, no edema. Neurologic: no headache, no dizziness, no numbness, no weakness. Physical Exam Vitals & Measurements HR: 60(Peripheral) RR: 18 BP: 122/80 SpO2: 99% HT: 60 in HT: 152 cm WT: 77.7 kg WT: 170.94 lb BMI: 33.63 General: alert, no acute distress ENMT: oral mucosa moist, no pharyngeal erythema or exudate Cardiovascular: regular rate and rhythm, normal peripheral perfusion Respiratory: Lungs CTA, respirations non labored Extremities: no deformity, no trauma Neurological: oriented x 4, LOC appropriate for age, CN II-XII intact, motor strength equal & normal bilaterally, speech normal flat affect, drooling some during visit Assessment/Plan 1. Wellness examination (Z00.00: Encounter for general adult medical examination without abnormal findings) pt presents for wellness exam. pt c/o increased drooling and daytime sleepiness. she is currently taking haldol TID and seroquerl BID. will d/c afternoon dose of haldol and 25mg dose of seroquel. pt states she was diagnosed with sleep apnea 5 years ago but refuses to wear mask at night. educated pt that this could also be the cause of the daytime sleepiness. she would like to have labs done and decrease meds. if this does not help she is willing to have sleep apnea study done again. all questions answered. RTC 4 weeks Ordered: CBC w/ Auto Diff Comprehensive Metabolic Panel Free T4 Lipid Panel T3 Free Thyroid Stimulating Hormone Vitamin D 25 Hydroxy 2. HTN (hypertension) (I10: Essential (primary) hypertension) BP at goal today Ordered: CBC w/ Auto Diff Comprehensive Metabolic Panel Free T4 Lab Specimen Collect 20278 Lipid Panel T3 Free Thyroid Stimulating Hormone Vitamin D 25 Hydroxy 3. Hyperlipidemia, unspecified (E78.5: Hyperlipidemia, unspecified) lipid drawn in office today Ordered: CBC w/ Auto Diff Comprehensive Metabolic Panel Free T4 Lab Specimen Collect 51114 Lipid Panel T3 Free Thyroid Stimulating Hormone Vitamin D 25 Hydroxy 4. Hypothyroid (E03.9: Hypothyroidism, unspecified) TSH T3 and T4 drawn in office today Ordered: CBC w/ Auto Diff Comprehensive Metabolic Panel Free T4 Lab Specimen Collect 45116 Lipid Panel T3 Free Thyroid Stimulating Hormone Vitamin D 25 Hydroxy 5. Osteopenia (M85.80: Other specified disorders of bone density and structure, unspecified site) pt to continue aldrenonate Ordered: CBC w/ Auto Diff Comprehensive Metabolic Panel Free T4 Lab Specimen Collect 86917 Lipid Panel T3 Free Thyroid Stimulating Hormone Vitamin D 25 Hydroxy 6. Fatigue (R53.83: Other fatigue) labs drawn in office today Ordered: Free T4 Lab Specimen Collect 64382 T3 Free 7. BMI 33.0-33.9,adult (Z68.33: Body mass index [BMI] 33.0-33.9, adult) BMI education complete 8. Non-smoker (Z78.9: Other specified health status) continue not smoking Orders: haloperidol, 5 mg = 1 tab(s), Oral, BID, changed to BID 06/11/23, # 270 tab(s), Refills(s) 1, [id number] 154.9, cm, 02/04/23 10:18:00 EDT, Height/Length Dosing, 75, kg, 02/04/23 10:18:00 EDT, Weight Dosing senna, 8.6 mg = 1 tab(s), Oral, BID, # 60 tab(s), Refills(s) 3, [id number], 154.9, cm, 02/04/23 10:18:00 EDT, Height/Length Dosing, 75, kg, 02/04/23 10:18:00 EDT, Weight Dosing senna, 8.6 mg = 1 tab(s), Oral, BID, # 60 tab(s), Refills(s) 5, [id number], 153, cm, 02/21/23 11:33:00 EDT, Height/Length Dosing, 74.6, kg, 02/21/23 11:33:00 EDT, Weight Dosing Follow-up No qualifying data available Problem List/Past Medical History Ongoing Anxiety disorder Fatigue HTN (hypertension) Hyperlipidemia, unspecified Hypothyroid Loss of memory Major depression with psychotic features LISA (obstructive sleep apnea) Osteopenia Schizophrenia Spasm of muscle Wellness examination Historical Depression Hypothyroidism IBS - Irritable bowel syndrome Paranoid schizophrenia Screening for hyperlipidemia Procedure/Surgical History Colonoscopy (01/2019), CEIOL - Cataract extraction and insertion of intraocular lens (04/28/2017), Tonsillectomy and (more content not included)... Normal [facility] Comment on above: Result Comment: Elec tronically Signed By: Keya Lucas\.br\Date and Time Signed: 06/11/23 16:21 EST Free T4on 06-11-2023 Free T4 [Mass/Vol] 0.95 ng/dL Normal 0.58-1.[address] [facility] Comment on above: Performed By: #### 2 968528, 8897322, 0068891, 7757311, 4137433, 4658988, 785276917, 55290891, 3794333 ####[facility] [address] [place] [address] HEMATOLOGYOrdered By: SYSTEM SYSTEM on 06-11-2023 Basophils/100 WBC (Bld) 0.6 % Normal 0.0 - 2.0 % [facility] Basophils/Leukocytes Auto (Bld) [Pure # fraction] 0.0 E9/L Normal 0.0 - 0.2 E9/L [facility] Eosinophils/100 WBC (Bld) 1.0 % Normal 0.0 - 8.0 % [facility] Eosinophils/Leukocyte s Auto (Bld) [Pure # fraction] 0.1 E9/L Normal 0.0 - 0.5 E9/L [facility] Lymphocytes/100 WBC (Bld) 22.6 % Normal 14.0 - 50.0 % [facility] Lymphocytes/Leukocyte s Auto (Bld) [Pure # fraction] 1.3 E9/L Normal 1.0 - 4.0 E9/L [facility] Monocytes/100 WBC (Bld) 5.5 % Normal 4.0 - 14.0 % [facility] Monocytes/Leukocytes Auto (Bld) [Pure # fraction] 0.3 E9/L Normal 0.2 - 1.0 E9/L [facility] Neutrophils/100 WBC (Bld) 70.3 % Normal 36.0 - 75.0 % [facility] Neutrophils/Leukocyte s Auto (Bld) [Pure # fraction] 4.2 E9/L [...] [Mass/Vol] 33.1 g/dL Normal 31.4 - 36.0 gm /dL [facility] MCV (RBC) [Entitic vol] 87.9 fL Normal 80.0 - 100.0 fL [facility]eAuto[facility] Platelet mean volume (Bld) [Entitic vol] 7.9 fL Normal 6.4 - 10.8 fL [facility] Platelets (Bld) [#/Vol] 231.0 E9/L Normal 150.0 - 500.0 E9/L [facility] RBC (Bld) [#/Vol] 4.1 E12/L Low 4.3 - 5.9 E12/L [facility]eAuto[facility] WBC corrected for nucl RBC Auto (Bld) [#/Vol] 5.9 E9/L Normal 4.0 - 11.0 E9/L [facility] Lipid Panelon 06-11-2023 Cholesterol [Mass/Vol] 219 mg/dL High 120-[address] [facility] Comment on above: Performed By: #### 2 266469, 5132949, 7121063, 2526772, 1478383, 1759471, 832067836, 71595717, 3389836 ####[facility] [address] [place] [address] Cholesterol in HDL [Mass/Vol] 93 mg/dL Invalid Interpretation Code [facility] Comment on above: Result Comment: '>= 60 LOW RISK' '<= 40 HIGH RISK' Performed By: #### 2 754666, 1310839, 6164569, 6833954, 5774967, 0362802, 133232271, 88280162, 5351701 ####[facility] [address] [place] [address] Cholesterol in LDL [Mass/Vol] 94 mg/dL Normal <=[address] [facility] Comment on above: Performed By: #### 2 816180, 1780935, 1289592, 9993891, 4925536, 3053625, 319613858, 53707905, 7719921 ####[facility] [address] [place] [address] Cholesterol in VLDL [Mass/Vol] 33 mg/dL Normal 7-[address] [facility] Comment on above: Performed By: #### 2 041457, 2454316, 1017931, 2759398, 2559041, 6458529, 704823164, 91434352, 4933466 ####[facility] [address] [place] [address] Triglyceride [Mass/Vol] 167 mg/dL High <=[address] [facility] Comment on above: Performed By: #### 2 502931, 5443937, 9338158, 2090202, 0011718, 1103366, 455499432, 71590327, 3624416 ####[facility] [address] [place] [address] TSHon 06-11-2023 TSH Qn 1.81 m[IU]/L Normal 0.34-5.[address] [facility] Comment on above: Performed By: #### 2 054908, 2294487, 1464834, 7493082, 7028966, 7854607, 059992930, 46571161, 8620708 ####[address] [place] [address] Vitamin D 25 Hydroxyon 06-11 Vitamin D 25 Hydroxy 17.1 ng/mL Low 30.0-100.0 [facility] Comment on above: Performed By: #### 2 162012, 9410859, 2567157, 2170597, 2683320, 9454902, 679928483, 95754489, 8819032 ####[address] [place] [address] eGFRon 06-11-2023 eGFR 49 mL/min/1.73 m2 Low >=[address] [facility] Comment on above: Order Comment: Order added by Discern Expert. Performed By: #### 2 212423, 7115385, 8959527, 0165371, 6887767, 8522474, 138008623, 90768243, 2706895 ####[facility] [address] [place] [address] Consultation Noteon 06-09-19 Consultation Note [id number] D2#1.00TIFF [facility] RAD - Ultrasound Reporton RAD - Ultrasound Report [id number] 5B#1.00TIFF [facility] Pathology Noteon 05-21-2023 Pathology Note [id number] 79#1.00TIFF [facility] RAD - Ultrasound Reporton RAD - Ultrasound Report [id number] 0B#1.00TIFF [facility] Physician Orderon 05-02-2023 Physician Order [id number] BB#1.00TIFF [facility] Dexa Scanson 04-16-2023 Dexa Scans [id number] D#1.00TIFF [facility] Lab Reportson 04-16-2023 Lab Reports [id number] A#1.00TIFF [facility] Outside Mammographyon 2022 Outside Mammography [id number] 08#1.00TIFF [facility] Hospice Recordson 03-19-2023 Hospice Records [id number] 66#1.00TIFF [facility] Ambulatory Visit Summaryon 0 02-21-2023 [...] Follow-Up Appointments Friday 11:00 AM EDT Where: [facility] Family Medicine Office/Clini c Noteon 02-21-2023 Family [...] of clutter to prevent tripping and/or falling. [place] Advance Directives reviewed, patient has copy at [...] this time. Colonoscopy last completed at [facility], has been requested. DEXA scan and Mammogram ordered and faxed to [facility]. Reviewed pain symptoms with patient: [...] avoid smoking. (more content not included)... Normal [facility] Comment on above: Result Comment: Elec [...] night-lights. ? Place frequently used items in lrsr-oz-rxnak places. Lower the shelves around your home [...] the way. ? Do not use floor greenlandic or wax that makes floors slippery. If [...] include working with a physical therapist or six sigma black trainer to improve your strength, balance, and endurance. Where to find more information ? Centers for Disease Control and Prevention, [place]: www.cdc.gov ? National [place] [employer] A[place]: www.barrera.nih.gov Contact a health care [...] care provider. (more content not included)... Normal [facility] Screenson 02-21-2023 Screens [id number] 9E#1.00CD:[address] [facility] Ambulatory Visit Summaryon 0 02-04-2023 Ambulatory Visit [...] [id number]: [address], [place] [phone] Allergies Keflex (rash) penicillins (rash) sulfamethoxazole (rash) Problems Ongoing - Any problem that you are currently receiving treatment for. Anxiety disorder HTN (hypertension) Hyperlipidemia, unspecified Loss of memory Major depression with psychotic features LISA (obstructive sleep apnea) Spasm of muscle Historical - Any problem that you are no longer receiving treatment for. Depression Hypothyroidism IBS - Irritable bowel syndrome Paranoid schizophrenia Normal [facility] Medicine Office/Clini c Noteon 02-04-2023 [facility] Medicine Office/Clinic Note HPI Staff Marley is a 67 year old female presenting to establish care Establish Care: History: Any previous diagnosis: [...] today to establish care. Was in a jail for 3 months. she was in a catatonic state and her wasn't sure if she would survive. she is doing very well today. answers questions appropriately. will need refills. states that she had labs by Dr. Escobedo in June. will call Irene for results. pt to return in June [...] TID, # 270 tab(s), Refills(s) 1, [id number] 154.9, cm, 02/04/23 10:18:00 EDT, Height/Length Dosing, 75, kg, 02/04/23 10:18:00 EDT, Weight Dosing levothyroxine, 50 mcg = 1 tab(s), Oral, Daily, # 90 tab(s), Refills(s) 1, [id number], 154.9, cm, 02/04/23 10:18:00 EDT, Height/Length Dosing, 75, kg, 02/04/23 10:18:00 EDT, Weight Dosing potassium chloride, 20 mEq = 1 tab(s), Oral, BID, # 180 tab(s), Refills(s) 3, [id number], 154.9, cm, 09/10/22 10:27:00 EDT, Height/Length Dosing, 76.2, kg, 09/10/22 10:27:00 EDT, Weight Dosing quetiapine, 25 mg = 1 tab(s), Oral, Daily, # 90 tab(s), Refills(s) 1, [id number], 154.9, cm, 02/04/23 10:18:00 EDT, Height/Length Dosing, 75, kg, 02/04/23 10:18:00 EDT, Weight Dosing quetiapine, 50 mg = 1 tab(s), Oral, Daily, # 90 tab(s), Refills(s) 1, [id number], 154.9, cm, 02/04/23 10:18:00 EDT, [...] Immunizations Vaccine Date Status Comments SARS-CoV-2 (COVID-19) [id number].[id number] 03/09/2022 Recorded 2022-08-09: TPV65 influenza virus vaccine, inactivated 02/14/2022 Recorded SARS-CoV-2 (COVID-19) mRNA-1273 vaccine 03/29/2021 Recorded 2022-08-09: TPV65 influenza virus vaccine, inactivated 01/27/2021 Recorded SARS-CoV-2 ( (more content not included)... Normal [facility] Comment on above: Result Comment: Elec tronically Signed By: Keya Lucas\.jacobo\Date and Time Signed: 02/04/23 10:44 EDT [facility] 02-04 [facility] [id number] 1#1.00CD:127 [facility] Transfer Inon 02-04-2023 Transfer In [id number] E1#1.00CD:127 [facility] C Bldon 10-14-2022 C Bld Final No growth at [address] [facility] Comment on above: Performed By: #### U CI #### [place] [address] .eGFRon 10-13-2022 Estimated GFR 54 mL/min/1.73m? Low >=60 [facility] Comment on above: Result Comment: [facility] have implemented the eGFR calculation [...] = years Performed By: #### E GFR ####[address] [address] CBC w/ Diffon 10-13-2022 Erythrocyte distribution width (RBC) [Ratio] 16.3 % High 11.6-14.8 [facility] Comment on above: Performed By: #### C [id number] #### [address] [address] Hematocrit (Bld) [Volume fraction] 31.7 % Low 36.0-46.0 [facility] Comment on above: Performed By: #### C D:[id number] #### [address] [address] Hemoglobin (Bld) [Mass/Vol] 10.6 g/dL Low 12.0-16.0 [facility] Comment on above: Performed By: #### C D:[id number] #### [address] [address] MCH (RBC) [Entitic mass] 31.5 pg Normal 27.0-35.0 [facility] Comment on above: Performed By: #### C D:[id number] #### [address] [address] MCHC 33.5 % Normal 31.0-37.0 [facility] Comment on above: Performed By: #### C D:[id number] #### [address] [address] MCV (RBC) [Entitic vol] 94.0 fL Normal 80.0-100.0 [facility] Comment on above: Performed By: #### C D:[id number] #### [address] [address] Platelet 216 x10*3/mcL Normal 150-350 [facility] Comment on above: Performed By: #### C D:[id number] #### [address] [address] Platelet mean volume (Bld) [Entitic vol] 8.7 fL Normal 6.7-10.6 [facility] Comment on above: Performed By: #### C D:[id number] #### [address] [address] RBC 3.37 x10*6/mcL Low 3.80-5.20 [facility] Comment on above: Performed By: #### C D:[id number] #### [address] [address] WBC 6.5 x10*3/mcL Normal 4.5-11.0 [facility] Comment on above: Performed By: #### C D:[id number] #### [address] [address] Diff Autoon 10-13-2022 Baso Absolute 0.0 x10*3/mcL Normal 0.0-0.2 [facility] Comment on above: Performed By: #### C D:[id number] #### [address] [address] Basophils/100 WBC (Bld) 0.6 % Normal 0.0-1.5 [facility] Comment on above: Performed By: #### C D:[id number] #### [address] [address] Eos Absolute 0.1 x10*3/mcL Normal 0.0-0.4 [facility] Comment on above: Performed By: #### C D:[id number] #### [address] [address] Eosinophils/100 WBC (Bld) 2.1 % Normal 0.0-5.4 [facility] Comment on above: Performed By: #### C D:[id number] #### [address] [address] Lymph Absolute 0.8 x10*3/mcL Low 1.0-4.8 [facility] Comment on above: Performed By: #### C D:[id number] #### [address] [address] Lymphocytes/100 WBC (Bld) 12.1 % Low 27.2-40.8 [facility] Comment on above: Performed By: #### C D:[id number] #### [address] [address] Tensas Absolute 0.4 x10*3/mcL Normal 0.1-1.1 [facility] Comment on above: Performed By: #### C D:[id number] #### [address] [address] Monocytes/100 WBC (Bld) 6.2 % Normal 3.7-11.9 [facility] Comment on above: Performed By: #### C D:[id number] #### [address] [address] Neutro Absolute 5.1 x10*3/mcL Normal 1.8-7.7 [facility] Comment on above: Performed By: #### C D:[id number] #### [address] [address] Neutro Auto 79.0 % High 47.2-70.8 [facility] Comment on above: Performed By: #### C D:[id number] #### [address] [address] Inpatient Clinical Summaryon 10-13-2022 Inpatient Clinical Summary [address] [address] [address] Clinical Summary Person Information Name: Marley Osborn Age: 66 Years : 1955 Sex: Female PCP: Jamil Lundberg MD Marital Status: Phone: PCP: [phone] Race: White Ethnicity: Not or Language: South African Visit Id: Visit Reason: hypernatremia, AMS Speciality: Acuity: Enc Type: Inpatient Med Service: Medicine-General Arrival: 10/09/2022 08:56:04 Discharge: Dispo Type: Address: [address] [place], [place] [address]tat[place] [facility] [address] Diagnosis: 1:Hypernatremia; 2:Schizophrenia; 3:Hypothermia; 4:Metabolic encephalopathy; 5:Chronic [...] range between ( 27.2 and 40.8 ) Tensas Auto: 6.2 % -- Normal range between [...] range between ( 36.0 and 46.0 ) Tensas Absolute: 0.4 x10 MCH: 31.5 pg -- [...] Creatine Phosphokinas (more content not included)... Normal [facility] Magnesiumon 10-13-2022 Magnesium [Mass/Vol] 1.8 mg/dL Normal 1.7-2.4 [facility] Comment on above: Performed By: #### C [id number] #### [address] [address] Nephrology Progress Noteon 0 10-13-2022 Nephrology Progress [...] Ativan, 1 mg= 0.5 mL, IV Push, s5kg-Datrtmer Times, PRN Benadryl, 25 mg, Oral, q6hr, [...] Agree with plan. Patient was transferred from [place] for hypernatremia, AMS, hypotension, hypothermia, UTI and multiple electrolyte imbalances. Sodium level on 10/04/22 was elevated at 150. Admission to [place] ER her sodium was 158 at 13:25. [...] Kei Casas MD 10/13/22 14:[address] [facility] Neurology Progress Noteon Neurology Progress Note Subjective Abnormal monoclonal: We will talk about possible clinical usp where that is here are neurodiagnostic studies [...] Ativan, 1 mg= 0.5 mL, IV Push, s6nm-Mwrnguvk Times, PRN Benadryl, 25 mg, Oral, q6hr, [...] stable. Refractory schizophrenia. would prefer hospice and [place] 5. Chronic anticoagulation 6. Bradycardia 7. Encounter for palliative care Electronically signed by Cody Schulz MD 10/13/22 09:[address] [facility] Progress Note-Nurseon 2022 Progress Note-Nurse report called to recieving facility. Electronically signed by Janell Patrick 10/13/22 15:[address] [facility] Renal Panelon 10-13-2022 Albumin [Mass/Vol] 3.3 g/dL Normal 3.2-4.9 [facility] Comment on above: Performed By: #### B HOUSE SHORER #### [address] [place] [address] Anion gap [Moles/Vol] 10 mmol/L Normal 7-17 [facility] Comment on above: Performed By: #### B HOUSE SHORER #### [address] [place] [address] Calcium [Mass/Vol] 9.4 mg/dL Normal 8.5-10.3 [facility] Comment on above: Performed By: #### B HOUSE SHORER #### [address] [place] [address] Chloride [Moles/Vol] 108 mmol/L Normal 98-110 [facility] Comment on above: Performed By: #### B HOUSE SHORER #### [address] [place] [address] CO2 [Moles/Vol] 27 mmol/L Normal 22-32 [facility] Comment on above: Performed By: #### B HOUSE SHORER #### [address] [place] [address] Creatinine [Mass/Vol] 1.11 mg/dL High 0.44-1.03 [facility] Comment on above: Performed By: #### B HOUSE SHORER #### [address] [place] [address] Glucose [Mass/Vol] 114 mg/dL High 70-99 [facility] Comment on above: Performed By: #### B HOUSE SHORER #### [address] [address] Phosphate [Mass/Vol] 2.4 mg/dL Low 2.5-4.6 [facility] Comment on above: Performed By: #### B HOUSE SHORER #### [address] [address] Potassium [Moles/Vol] 4.1 mmol/L Normal 3.4-4.8 [facility] Comment on above: Performed By: #### B HOUSE SHORER #### [address] [address] Sodium [Moles/Vol] 141 mmol/L Normal 133-142 [facility] Comment on above: Performed By: #### B HOUSE SHORER #### [address] [address] Urea nitrogen [Mass/Vol] 10 mg/dL Normal 8-26 [facility] Comment on above: Performed By: #### B HOUSE SHORER #### [address] [address] Urea nitrogen/Creatinine [Mass ratio] 9.0 mg/mg Low 10.0-20.0 [facility] Comment on above: Performed By: #### B HOUSE SHORER #### [address] [address] .eGFRon 10-12-2022 Estimated GFR 50 mL/min/1.73m? Low >=60 [facility] Comment on above: Result Comment: [facility] have implemented the eGFR calculation [...] = years Performed By: #### E GFR ####[address] [address] Basic Metabolic Profileon Anion gap [Moles/Vol] 9 mmol/L Normal 7-17 [facility] Comment on above: Performed By: #### C [id number] #### [address] [address] Calcium [Mass/Vol] 9.2 mg/dL Normal 8.5-10.3 [facility] Comment on above: Performed By: #### C [id number] #### [address] [address] Chloride [Moles/Vol] 111 mmol/L High 98-110 [facility] Comment on above: Performed By: #### C [id number] #### [address] [address] CO2 [Moles/Vol] 29 mmol/L Normal 22-32 [facility] Comment on above: Performed By: #### C [id number] #### [address] [address] Creatinine [Mass/Vol] 1.19 mg/dL High 0.44-1.03 [facility] Comment on above: Performed By: #### C [id number] #### [address] [address] Glucose [Mass/Vol] 109 mg/dL High 70-99 [facility] Comment on above: Performed By: #### C [id number] #### [address] [address] Potassium [Moles/Vol] 4.2 mmol/L Normal 3.4-4.8 [facility] Comment on above: Performed By: #### C [id number] #### [address] [address] Sodium [Moles/Vol] 145 mmol/L High 133-142 [facility] Comment on above: Performed By: #### C [id number] #### [address] [address] Urea nitrogen [Mass/Vol] 16 mg/dL Normal 8-26 [facility] Comment on above: Performed By: #### C [id number] #### [address] [address] Urea nitrogen/Creatinine [Mass ratio] 13.4 mg/mg Normal 10.0-20.0 [facility] Comment on above: Performed By: #### C [id number] #### [address] [address] Nephrology Progress Noteon 0 10-12-2022 Nephrology Progress [...] Ativan, 1 mg= 0.5 mL, IV Push, p1vd-Afhlrnef Times, PRN Benadryl, 25 mg, Oral, q6hr, [...] at this time. Patient was transferred from [place] for hypernatremia, AMS, hypotension, hypothermia, UTI and multiple electrolyte imbalances. Sodium level on 10/04/22 was elevated at 150. Admission to [place] ER her sodium was 158 at 13:25. Subsequent sodium levels: 10/08 at 18:23-152, 22:00-155, 10/09 at 02:00- 154, 04:00- 156, 06:00- 156. Hypomagnesemia improved with IV magnesium sulfate. Hypophosphatemia due to poor nutrition. Neurology and behavioral health recommendations noted 2. Schizophrenia 3. Hypothermia 4. Metabolic encephalopathy 5. Chronic anticoagulation 6. Bradycardia 7. Encounter for palliative care Electronically signed by Shay LOZA-Rachel MAXWELL 10/12/22 11:13 EDT Patient seen, personally examined. Thoroughly reviewed and discussed assessment and plan with nurse practitioner Rachel Maroscher [employer]. I agree with the progress notes written. Electronically signed by Augusto ROPER, Kei Veloz 10/12/22 11:[address] [facility] Neurology Progress Noteon Neurology Progress Note [...] Ativan, 1 mg= 0.5 mL, IV Push, x1rb-Ypinhimu Times, PRN Benadryl, 25 mg, Oral, q6hr, [...] Cody Schulz MD 10/12/22 14:[address] [facility] C Urineon 10-11-2022 C Urine Order added by Discern rule. Final 50-100,000 cfu/ml Enterococcus faecalis isolated ORGANISM [employer] ------ SUSCEPTIBILITY ----- ORGANISM ID: 1 ANTIBIOTIC INTERPRETATION TIMOTHY STATUS POS Enterococcus faecalis Ampicillin S <=2 V Ciprofloxacin R >=8 V Daptomycin S 4 V Gentamicin synergy R Syn-R V Levofloxacin R >=8 V Nitrofurantoin S <=16 V Streptomycin synergy R Syn-R V Tetracycline R >=16 V Vancomycin S [address] [facility] Comment on above: Performed By: #### U ####[facility] (DEFAULT)[address] [place], [place] [address]TA[facility] [place] [address] Nephrology Progress Noteon 0 10-11-2022 Nephrology Progress [...] Ativan, 1 mg= 0.5 mL, IV Push, b7ws-Byrlpexy Times, PRN Benadryl, 25 mg, Oral, q6hr, [...] comfort measures only Patient was transferred from [place] for hypernatremia, AMS, hypotension, hypothermia, UTI and multiple electrolyte imbalances. Sodium level on 10/04/22 was elevated at 150. Admission to [place] ER her sodium was 158 at 13:25. [...] Kei Casas MD 10/11/22 11:[address] [facility] Neurology Progress Noteon Neurology Progress Note [...] Ativan, 1 mg= 0.5 mL, IV Push, x0jm-Kyahfrkh Times, PRN Benadryl, 25 mg, Oral, q6hr, [...] Cody Schulz MD 10/11/22 19:[address] [facility] .eGFRon 10-10-2022 Estimated GFR 50 mL/min/1.73m? Low >=60 [facility] Comment on above: Result Comment: [facility] have implemented the eGFR calculation [...] Age = years Performed By: #### C [id number] #### [address] [address] Estimated GFR 48 mL/min/1.73m? Low >=60 [facility] Comment on above: Result Comment: [facility] have implemented the eGFR calculation [...] Age = years Performed By: #### C [id number] #### [address] [address] Estimated GFR 47 mL/min/1.73m? Low >=60 [facility] Comment on above: Result Comment: [facility] have implemented the eGFR calculation [...] years Performed By: #### C OMP #### [facility] [address] [place] [address] Estimated GFR 39 mL/min/1.73m? Low >=60 [facility] Comment on above: Result Comment: [facility] have implemented the eGFR calculation [...] years Performed By: #### C OMP #### [address] [address] Estimated GFR 45 mL/min/1.73m? Low >=60 [facility] Comment on above: Result Comment: [facility] have implemented the eGFR calculation [...] Age = years Performed By: #### C [id number] #### [address] [address] B12/Folate Lvlon 10-10-2022 Cobalamin (Vitamin B12) [Mass/Vol] 793 pg/mL Normal 180-914 [facility] Comment on above: Performed By: #### B HOUSE SHORER #### [address] [address] Folate Lvl 10.3 ng/mL Normal >=5.9 [facility] Comment on above: Result Comment: A [facility] Technical Consultation has determined that deficient Folate concentrations are considered to be less than 4 ng/mL. Performed By: #### B HOUSE SHORER #### [address] [address] Basic Metabolic Profileon Anion gap [Moles/Vol] 8 mmol/L Normal 7-17 [facility] Comment on above: Order Comment: until sodium normalized Performed By: #### C [id number] #### [address] [address] Calcium [Mass/Vol] 8.8 mg/dL Normal 8.5-10.3 [facility] Comment on above: Order Comment: until sodium normalized Performed By: #### C [id number] #### [address] [address] Chloride [Moles/Vol] 113 mmol/L High 98-110 [facility] Comment on above: Order Comment: until sodium normalized Performed By: #### C [id number] #### [address] [address] CO2 [Moles/Vol] 28 mmol/L Normal 22-32 [facility] Comment on above: Order Comment: until sodium normalized Performed By: #### C [id number] #### [address] [address] Creatinine [Mass/Vol] 1.20 mg/dL High 0.44-1.03 [facility] Comment on above: Order Comment: until sodium normalized Performed By: #### C [id number] #### [address] [address] Glucose [Mass/Vol] 112 mg/dL High 70-99 [facility] Comment on above: Order Comment: until sodium normalized Performed By: #### C [id number] #### [address] [address] Potassium [Moles/Vol] 3.4 mmol/L Normal 3.4-4.8 [facility] Comment on above: Order Comment: until sodium normalized Performed By: #### C [id number] #### [address] [address] Sodium [Moles/Vol] 146 mmol/L High 133-142 [facility] Comment on above: Order Comment: until sodium normalized Performed By: #### C [id number] #### [address] [address] Urea nitrogen [Mass/Vol] 26 mg/dL Normal 8-26 [facility] Comment on above: Order Comment: until sodium normalized Performed By: #### C [id number] #### [address] [address] Urea nitrogen/Creatinine [Mass ratio] 21.7 mg/mg High 10.0-20.0 [facility] Comment on above: Order Comment: until sodium normalized Performed By: #### C [id number] #### [address] [address] Anion gap [Moles/Vol] 9 mmol/L Normal 7-17 [facility] Comment on above: Order Comment: until sodium normalized Performed By: #### C OMP #### [address] [address] Calcium [Mass/Vol] 9.1 mg/dL Normal 8.5-10.3 [facility] Comment on above: Order Comment: until sodium normalized Performed By: #### C OMP #### [address] [address] Chloride [Moles/Vol] 114 mmol/L High 98-110 [facility] Comment on above: Order Comment: until sodium normalized Performed By: #### C OMP #### [address] [address] CO2 [Moles/Vol] 29 mmol/L Normal 22-32 [facility] Comment on above: Order Comment: until sodium normalized Performed By: #### C OMP #### [address] [address] Creatinine [Mass/Vol] 1.25 mg/dL High 0.44-1.03 [facility] Comment on above: Order Comment: until sodium normalized Performed By: #### C OMP #### [address] [address] Glucose [Mass/Vol] 101 mg/dL High 70-99 [facility] Comment on above: Order Comment: until sodium normalized Performed By: #### C OMP #### [address] [address] Potassium [Moles/Vol] 3.6 mmol/L Normal 3.4-4.8 [facility] Comment on above: Order Comment: until sodium normalized Performed By: #### C OMP #### [address] [address] Sodium [Moles/Vol] 148 mmol/L High 133-142 [facility] Comment on above: Order Comment: until sodium normalized Performed By: #### C OMP #### [address] [address] Urea nitrogen [Mass/Vol] 27 mg/dL High 8-26 [facility] Comment on above: Order Comment: until sodium normalized Performed By: #### C OMP #### [address] [address] Urea nitrogen/Creatinine [Mass ratio] 21.6 mg/mg High 10.0-20.0 [facility] Comment on above: Order Comment: until sodium normalized Performed By: #### C OMP #### [address] [address] Anion gap [Moles/Vol] 12 mmol/L Normal 7-17 [facility] Comment on above: Order Comment: until sodium normalized Performed By: #### C [id number] #### [address] [address] Calcium [Mass/Vol] 9.0 mg/dL Normal 8.5-10.3 [facility] Comment on above: Order Comment: until sodium normalized Performed By: #### C [id number] #### [address] [address] Chloride [Moles/Vol] 112 mmol/L High 98-110 [facility] Comment on above: Order Comment: until sodium normalized Performed By: #### C [id number] #### [address] [address] CO2 [Moles/Vol] 28 mmol/L Normal 22-32 [facility] Comment on above: Order Comment: until sodium normalized Performed By: #### C [id number] #### [address] [address] Creatinine [Mass/Vol] 1.46 mg/dL High 0.44-1.03 [facility] Comment on above: Order Comment: until sodium normalized Performed By: #### C [id number] #### [address] [address] Glucose [Mass/Vol] 111 mg/dL High 70-99 [facility] Comment on above: Order Comment: until sodium normalized Performed By: #### C [id number] #### [address] [address] Potassium [Moles/Vol] 3.6 mmol/L Normal 3.4-4.8 [facility] Comment on above: Order Comment: until sodium normalized Performed By: #### C [id number] #### [address] [address] Sodium [Moles/Vol] 148 mmol/L High 133-142 [facility] Comment on above: Order Comment: until sodium normalized Performed By: #### C [id number] #### [address] [address] Urea nitrogen [Mass/Vol] 26 mg/dL Normal 8-26 [facility] Comment on above: Order Comment: until sodium normalized Performed By: #### C [id number] #### [address] [address] Urea nitrogen/Creatinine [Mass ratio] 17.8 mg/mg Normal 10.0-20.0 [facility] Comment on above: Order Comment: until sodium normalized Performed By: #### C [id number] #### [address] [address] Anion gap [Moles/Vol] 10 mmol/L Normal 7-17 [facility] Comment on above: Order Comment: until sodium normalized Performed By: #### R ENAL #### [address] [address] Calcium [Mass/Vol] 9.2 mg/dL Normal 8.5-10.3 [facility] Comment on above: Order Comment: until sodium normalized Performed By: #### R ENAL #### [address] [address] Chloride [Moles/Vol] 116 mmol/L High 98-110 [facility] Comment on above: Order Comment: until sodium normalized Performed By: #### R ENAL #### [address] [address] CO2 [Moles/Vol] 29 mmol/L Normal 22-32 [facility] Comment on above: Order Comment: until sodium normalized Performed By: #### R ENAL #### [address] [address] Creatinine [Mass/Vol] 1.29 mg/dL High 0.44-1.03 [facility] Comment on above: Order Comment: until sodium normalized Performed By: #### R ENAL #### [address] [address] Glucose [Mass/Vol] 105 mg/dL High 70-99 [facility] Comment on above: Order Comment: until sodium normalized Performed By: #### R ENAL #### [address] [address] Potassium [Moles/Vol] 3.7 mmol/L Normal 3.4-4.8 [facility] Comment on above: Order Comment: until sodium normalized Performed By: #### R ENAL #### [address] [address] Sodium [Moles/Vol] 151 mmol/L High 133-142 [facility] Comment on above: Order Comment: until sodium normalized Performed By: #### R ENAL #### [address] [address] Urea nitrogen [Mass/Vol] 28 mg/dL High 8-26 [facility] Comment on above: Order Comment: until sodium normalized Performed By: #### R ENAL #### [address] [address] Urea nitrogen/Creatinine [Mass ratio] 21.7 mg/mg High 10.0-20.0 [facility] Comment on above: Order Comment: until sodium normalized Performed By: #### R ENAL #### [address] [address] CBC w/ Diffon 10-10-2022 Erythrocyte distribution width (RBC) [Ratio] 16.6 % High 11.6-14.8 [facility] Comment on above: Performed By: #### C BC ####[place] [id number] Hematocrit (Bld) [Volume fraction] 30.2 % Low 36.0-46.0 [facility] Comment on above: Performed By: #### C BC ####[place] [id number] Hemoglobin (Bld) [Mass/Vol] 10.0 g/dL Low 12.0-16.0 [facility] Comment on above: Performed By: #### C BC ####[place] [id number] MCH (RBC) [Entitic mass] 31.2 pg Normal 27.0-35.0 [facility] Comment on above: Performed By: #### C BC ####[place] [address] MCHC 33.0 % Normal 31.0-37.0 [facility] Comment on above: Performed By: #### C BC ####[place] [id number] MCV (RBC) [Entitic vol] 94.6 fL Normal 80.0-100.0 [facility] Comment on above: Performed By: #### C BC ####[place] [id number] Platelet 211 x10*3/mcL Normal 150-350 [facility] Comment on above: Performed By: #### C BC ####[address] [address] Platelet mean volume (Bld) [Entitic vol] 8.5 fL Normal 6.7-10.6 [facility] Comment on above: Performed By: #### C BC ####[place] [id number] RBC 3.19 x10*6/mcL Low 3.80-5.20 [facility] Comment on above: Performed By: #### C BC ####[facility] [place] [address] WBC 7.6 x10*3/mcL Normal 4.5-11.0 [facility] Comment on above: Performed By: #### C BC ####[facility] [place] [address] CPKon 10-10-2022 Creatine Phosphokinase 20 IU/L Low 38-234 [facility] Comment on above: Performed By: #### C [id number] #### [facility] [address] [place] [address] Consultation Note - Generico n 10-10-2022 Consultation Note - Generic Chief Complaint change in mentation. transfer from [facility] Reason for Consultation Palliative Care was consulted [...] the phone. Patient is currently residing at [facility]. Patient arrived to [facility] emergency department at 1317 on 10/08 from [facility], with initial blood pressure of 195/91, heart [...] bradycardia. According to paperwork and report from [facility], with patient's underlying psychiatric disorders, baseline ranges from appropriate behavior to catatonia. Patient was admitted to [facility] on 09/28 due to worsening confusion and psychosis and in a catatonic state. In assessment dated 09/29, patient is noncommunicative does not cooperate, does not follow commands. Patient is seen in [facility] ICU and arouses to name but no [...] Notes first episode occurring the day after Judi. He describes approximately 4 episodes with subsequent admissions to either [facility] or [facility], with this being the worst episode. [...] EXAM: XR (more content not included)... Normal [facility] Cortisolon 10-10-2022 Cortisol 3.3 mcg/dL Normal [facility] Comment on above: Result Comment: Norm als: 6.7 - 22.6 mcg/dL in A.M. < 10.0 mcg/dL in P.M. Performed By: #### C OMP #### [address] [address] Cult,Urineon 10-10-2022 Cult,Urine Specimen Description .URINE Culture ENTEROCOCCUS FAECALIS >[id number] CFU/ML Report Status FINAL 10/10/2022 SUSCEPTIBILITY Organism ENTEROCOCCUS FAECALIS Method TIMOTHY Ampicillin <=2 SUSCEPTIBLE Ciprofloxacin >=8 RESISTANT Levofloxacin >=8 RESISTANT Nitrofurantoin <=16 SUSCEPTIBLE Tetracycline >=16 RESISTANT Vancomycin 1 SUSCEPTIBLE Susceptible [facility] Comment on above: Performed By: #### U RC #### [facility] [address] [place] [address] Procurement Buyer: Jersey Dahl MD [facility] [address] [place] [address] Procurement Buyer: Kayley Doll MD Diff Autoon 10-10-2022 Baso Absolute 0.1 x10*3/mcL Normal 0.0-0.2 [facility] Comment on above: Performed By: #### . Automated Diff ####[address] [address] Basophils/100 WBC (Bld) 0.8 % Normal 0.0-1.5 [facility] Comment on above: Performed By: #### . Automated Diff ####[address] [address] Eos Absolute 0.2 x10*3/mcL Normal 0.0-0.4 [facility] Comment on above: Performed By: #### . Automated Diff ####[address] [address] Eosinophils/100 WBC (Bld) 2.4 % Normal 0.0-5.4 [facility] Comment on above: Performed By: #### . Automated Diff ####[address] [address] Lymph Absolute 1.6 x10*3/mcL Normal 1.0-4.8 [facility] Comment on above: Performed By: #### . Automated Diff ####[address] [address] Lymphocytes/100 WBC (Bld) 20.4 % Low 27.2-40.8 [facility] Comment on above: Performed By: #### . Automated Diff ####[address] [address] Tensas Absolute 0.6 x10*3/mcL Normal 0.1-1.1 [facility] Comment on above: Performed By: #### . Automated Diff ####[address] [address] Monocytes/100 WBC (Bld) 7.4 % Normal 3.7-11.9 [facility] Comment on above: Performed By: #### . Automated Diff ####[address] [address] Neutro Absolute 5.3 x10*3/mcL Normal 1.8-7.7 [facility] Comment on above: Performed By: #### . Automated Diff ####[address] [address] Neutro Auto 69.0 % Normal 47.2-70.8 [facility] Comment on above: Performed By: #### . Automated Diff ####[address] [address] Free T4on 10-10-2022 Free T4 [Mass/Vol] 1.20 ng/dL High 0.61-1.12 [facility] Comment on above: Result Comment: Refe rence Ranges for Females: Females, 1st Trimester 0.52 ? 1.10 ng/dL Females, 2nd Trimester 0.45 ? 0.99 ng/dL Females, 3rd Trimester 0.48 - 0.95 ng/dL Performed By: #### B HOUSE SHORER #### [address] [address] MRI Brain + MRA Head w/o Con [...] Electronically Signed in Other Vendor System) Normal [facility] Comment on above: Order Comment: ATIVA N 2 MG IV IF NEEDED Magnesiumon 10-10-2022 Magnesium [Mass/Vol] 2.2 mg/dL Normal 1.7-2.4 [facility] Comment on above: Performed By: #### M G ####[place] [id number] [place] [address] Nephrology Progress Noteon 0 10-10-2022 Nephrology Progress [...] Ativan, 1 mg= 0.5 mL, IV Push, z2xe-Ozsvkckf Times, PRN Benadryl, 25 mg, Oral, q6hr, [...] hrs during correction. [place] [place] for hypernatremia, AMS, hypotension, hypothermia, UTI and multiple electrolyte imbalances. Sodium level on 10/04/22 was elevated at 150. Admission to [place] [facility] her sodium was 158 at 13:25. [...] Kei Casas MD 10/10/22 18:[address] [facility] Osmol,Serumon 10-10-2022 Serum Osmolality 311 mOsm/kg High 280-295 [facility] Comment on above: Performed By: #### R ENAL #### [address] [address] Renal Panelon 10-10-2022 Albumin [Mass/Vol] 3.4 g/dL Normal 3.2-4.9 [facility] Comment on above: Performed By: #### R ENAL #### [address] [address] Anion gap [Moles/Vol] 11 mmol/L Normal 7-17 [facility] Comment on above: Performed By: #### R ENAL #### [address] [address] Calcium [Mass/Vol] 9.1 mg/dL Normal 8.5-10.3 [facility] Comment on above: Performed By: #### R ENAL #### [address] [address] Chloride [Moles/Vol] 113 mmol/L High 98-110 [facility] Comment on above: Performed By: #### R ENAL #### [address] [address] CO2 [Moles/Vol] 28 mmol/L Normal 22-32 [facility] Comment on above: Performed By: #### R ENAL #### [address] [address] Creatinine [Mass/Vol] 1.24 mg/dL High 0.44-1.03 [facility] Comment on above: Performed By: #### R ENAL #### [address] [address] Glucose [Mass/Vol] 93 mg/dL Normal 70-99 [facility] Comment on above: Performed By: #### R ENAL #### [address] [address] Phosphate [Mass/Vol] 2.4 mg/dL Low 2.5-4.6 [facility] Comment on above: Performed By: #### R ENAL #### [address] [address] Potassium [Moles/Vol] 3.6 mmol/L Normal 3.4-4.8 [facility] Comment on above: Performed By: #### R ENAL #### [address] [address] Sodium [Moles/Vol] 148 mmol/L High 133-142 [facility] Comment on above: Performed By: #### R ENAL #### [address] [address] Urea nitrogen [Mass/Vol] 26 mg/dL Normal 8-26 [facility] Comment on above: Performed By: #### R ENAL #### [address] [address] Urea nitrogen/Creatinine [Mass ratio] 21.0 mg/mg High 10.0-20.0 [facility] Comment on above: Performed By: #### R ENAL #### [address] [address] Speech Therapy Progress Note on 10-10-2022 Speech [...] by Hafsa Nguyen 10/10/22 14:[address] [facility] TIBCon 10-10-2022 Iron [Mass/Vol] 69 ug/dL Normal 28-170 [facility] Comment on above: Performed By: #### C OMP #### [address] [address] Iron Sat 24.1 % Normal >=16.0 [facility] Comment on above: Performed By: #### C OMP #### [address] [address] TIBC 286 mcg/dL Normal 261-478 [facility] Comment on above: Performed By: #### C OMP #### [address] [address] Transferrin [Mass/Vol] 204 mg/dL Normal 192-382 [facility] Comment on above: Performed By: #### C OMP #### [address] [address] UPCRon 10-10-2022 Creatinine [Mass/Vol] 176.2 mg/dL Normal [facility] Comment on above: Order Comment: Order ed by Discern Rule for Protein-Creatinine Ratio. Result Comment: The reference range has not been established for this test on a random urine sample. The test result should be interpreted based on clinical context. Performed By: #### U CI #### [address] [address] Ur Protein 24 mg/dL High <=10 [facility] Comment on above: Order Comment: Order ed by Discern Rule for Protein-Creatinine Ratio. Performed By: #### U CI #### [address] [address] Urine Protein/Creatinine Ratio 0.14 Normal <=0.28 [facility] Comment on above: Order Comment: Order ed by Discern Rule for Protein-Creatinine Ratio. Performed By: #### U CI #### [address] [address] Uric Acidon 10-10-2022 Urate [Mass/Vol] 8.3 mg/dL High 2.6-8.0 [facility] Comment on above: Performed By: #### B HOUSE SHORER #### [address] [address] Vitamin D 25-Hydroxy Totalon 10-10-2022 Vitamin D 25-Hydroxy Total 41 ng/mL Normal 30-100 [facility] Comment on above: Result Comment: Bandar min D 25-Hydroxy Total Reference Range: Deficient: < 20 Insufficient: 20 to < 30 Sufficient: 30 - 100 Upper Safety Limit: > 100 Performed By: #### B HOUSE SHORER #### [place] [address] X SSTon 10-10-2022 Extra SST Collected Normal [facility] Comment on above: Performed By: #### C OMP #### [place] [address] XR Chest 1 Viewon 10-10-2022 XR Chest 1 View EXAM: XR Chest 1 View HISTORY: Line Placement, COMPARISON: None. TECHNIQUE: AP [...] Electronically Signed in Other Vendor System) Normal [facility] .UA Microscp Aon 10-09-2022 UA Bacteria Present Abnormal Absent [facility] Comment on above: Performed By: #### C [id number] #### [place] [address] UA CA Oxalate Present Abnormal Absent [facility] Comment on above: Performed By: #### C [id number] #### [address] [address] UA Mucus Present Abnormal Absent [facility] Comment on above: Performed By: #### C [id number] #### [place] [id number] UA RBC Quant 39 /HPF High 0-5 [facility] Comment on above: Performed By: #### C [id number] #### [place] [id number] UA Squepi Cells Quant 1 /HPF Normal 0-29 [facility] Comment on above: Performed By: #### C [id number] #### [facility] [address] [place] [address] UA WBC Clmp Present Abnormal Absent [facility] Comment on above: Performed By: #### C [id number] #### [place] [address] [place] [address] UA WBC Quant 151 /HPF High 0-5 [facility] Comment on above: Performed By: #### C [id number] #### [place] [address] [place] [address] .eGFRon 10-09-2022 Estimated GFR 47 mL/min/1.73m? Low >=60 [facility] Comment on above: Result Comment: [facility] have implemented the eGFR calculation [...] Age = years Performed By: #### B HOUSE SHORER #### [address] [address] Estimated GFR 49 mL/min/1.73m? Low >=60 [facility] Comment on above: Result Comment: [facility] have implemented the eGFR calculation [...] years Performed By: #### R ENAL #### [facility] [address] [place] [address] Estimated GFR 45 mL/min/1.73m? Low >=60 [facility] Comment on above: Result Comment: [facility] have implemented the eGFR calculation [...] Age = years Performed By: #### B HOUSE SHORER #### [facility] [address] [place] [address] Estimated GFR 49 mL/min/1.73m? Low >=60 [facility] Comment on above: Result Comment: [facility] have implemented the eGFR calculation [...] = years Performed By: #### E GFR ####[facility] [place] [address] Estimated GFR 53 mL/min/1.73m? Low >=60 [facility] Comment on above: Result Comment: [facility] have implemented the eGFR calculation [...] years Performed By: #### R ENAL #### [address] [address] GFR/1.73 sq M.predicted MDRD (S/P/Bld) [Vol rate/Area] mL/min/{1.73_m2} Normal >=60 [facility] Comment on above: Result Comment: [facility] have implemented the eGFR calculation [...] = years Performed By: #### E GFR ####[address] [address] Ammoniaon 10-09-2022 Ammonia (P) [Moles/Vol] 31 umol/L Normal 9-35 [facility] Comment on above: Performed By: #### C [id number] #### [address] [address] BNPon 10-09-2022 Natriuretic peptide B (Bld) [Mass/Vol] 88 pg/mL Normal 0-100 [facility] Comment on above: Order Comment: CHRISTIAN lambert came in while doing draws and saw BNP was marked as to be collected 10/10/2022 and had talked to pt's dr and asked for it to be collected today Performed By: #### C OMP #### [facility] [address] [place] [address] Natriuretic peptide B (Bld) [Mass/Vol] 114 pg/mL High 0-100 [facility] Comment on above: Performed By: #### B HOUSE SHORER #### [facility] [address] [place] [address] Basic Metabolic Panelon 09-30 Anion gap [Moles/Vol] 7 mmol/L Low 9 - 17 mmol/L [employer] Calcium [Mass/Vol] 10.4 mg/dL 8.6 - 10.4 mg/dL [employer] Chloride [Moles/Vol] 117 mmol/L High 98 - 107 mmol/L [employer] CO2 [Moles/Vol] 32 mmol/L High 20 - 31 mmol/L [facility] [employer] [facility] [employer] Creatinine [Mass/Vol] 0.88 mg/dL 0.50 - 0.90 mg /dL [employer] GFR/1.73 sq M.predicted MDRD (S/P/Bld) [Vol rate/Area] - [facility] [employer] Comment on above: These results are not [...] 118 mg/dL High 70 - 99 mg/dL [employer] Interpretation and review of laboratory results Abnormal [employer] Potassium [Moles/Vol] 3.4 mmol/L Low 3.7 - 5.3 mmol /L [employer] Sodium [Moles/Vol] 156 mmol/L High 135 - 144 mmol/L [employer] Urea nitrogen [Mass/Vol] 31 mg/dL High 8 - 23 mg/dL [employer] Urea nitrogen/Creatinine (Bld) [Mass ratio] 35 High 9 - 20 [facility] Anion gap [Moles/Vol] 6 mmol/L Low 9 - 17 mmol/L [facility] Calcium [Mass/Vol] 10.4 mg/dL 8.6 - 10.4 mg/dL [facility] Chloride [Moles/Vol] 118 mmol/L High 98 - 107 mmol/L [facility] CO2 [Moles/Vol] 32 mmol/L High 20 - 31 mmol/L [facility] Creatinine [Mass/Vol] 0.91 mg/dL High 0.50 - 0.90 mg /dL [facility] GFR/1.73 sq M.predicted MDRD (S/P/Bld) [Vol rate/Area] - [facility] Comment on above: These results are not [...] [Mass/Vol] 94 mg/dL 70 - 99 mg/dL [facility] Interpretation and review of laboratory results Abnormal [facility] Potassium [Moles/Vol] 3.5 mmol/L Low 3.7 - 5.3 mmol /L [facility] Sodium [Moles/Vol] 156 mmol/L High 135 - 144 mmol/L [facility] Urea nitrogen [Mass/Vol] 32 mg/dL High 8 - 23 mg/dL [facility] Urea nitrogen/Creatinine (Bld) [Mass ratio] 35 High 9 - 20 [facility] Anion gap [Moles/Vol] 7 mmol/L Low 9 - 17 mmol/L [facility] Calcium [Mass/Vol] 10.3 mg/dL 8.6 - 10.4 mg/dL [facility] Chloride [Moles/Vol] 117 mmol/L High 98 - 107 mmol/L [facility] CO2 [Moles/Vol] 30 mmol/L 20 - 31 mmol/L [facility] Creatinine [Mass/Vol] 0.9 mg/dL 0.50 - 0.90 mg /dL [facility] GFR/1.73 sq M.predicted MDRD (S/P/Bld) [Vol rate/Area] - PINF [facility] Comment on above: These results are not [...] 140 mg/dL High 70 - 99 mg/dL [facility] Interpretation and review of laboratory results Abnormal [facility] Potassium [Moles/Vol] 3.0 mmol/L Low 3.7 - 5.3 mmol /L [facility] Sodium [Moles/Vol] 154 mmol/L High 135 - 144 mmol/L [facility] Urea nitrogen [Mass/Vol] 32 mg/dL High 8 - 23 mg/dL [facility] Urea nitrogen/Creatinine (Bld) [Mass ratio] 36 High 9 - 20 [facility] Basic Metabolic Profon 10-09 Anion gap [Moles/Vol] 7 mmol/L Low 9-17 [facility] Comment on above: Performed By: #### L IPR #### [facility] [address] [place], [place] [phone] Procurement Buyer: Jersey Dahl MD #### MARLIN, CP #### [facility] [address] [address] Procurement Buyer: Kayley Doll MD BUN/CRE Ratio 35 High 9-20 [facility] Comment on above: Performed By: #### L IPR #### [facility] [address] [place], [place] [id number] Procurement Buyer: Jersey Dahl MD #### CDP, CP #### [facility] [address] [place] [address] [address] [place], [place] [phone] Procurement Buyer: Kayley Doll MD Calcium [Mass/Vol] 10.4 mg/dL Normal 8.6-10.4 [facility] Comment on above: Performed By: #### L IPR #### [address] [address] Procurement Buyer: Jersey Dahl MD #### CDP, CP #### [facility] [address] [place] [address] [address] [place], [place] 5951583 Procurement Buyer: Kayley Doll MD Chloride [Moles/Vol] 117 mmol/L High 98-107 [facility] Comment on above: Performed By: #### L IPR #### [address] [address] Procurement Buyer: Jersey Dahl MD #### CDP, CP #### [address] [place], [place] [phone] Procurement Buyer: Kayley Doll MD CO2 [Moles/Vol] 32 mmol/L High 20-31 [facility] Comment on above: Performed By: #### L IPR #### [address] [address] Procurement Buyer: Jersey Dahl MD #### CDP, CP #### [address] [place], [place] [phone] Procurement Buyer: Kayley Doll MD Creatinine [Mass/Vol] 0.88 mg/dL Normal 0.50-0.90 [facility] Comment on above: Performed By: #### L IPR #### [address] [address] Procurement Buyer: Jersey Dahl MD #### CDP, CP #### [address] [place], [place] 7418183 Procurement Buyer: Kayley Doll MD GFR/1.73 sq M.predicted among non-blacks MDRD (S/P/Bld) [Vol rate/Area] mL/min/{1.73_m2} Normal >60 [facility] Comment on above: Result Comment: These results [...] secretion. Performed By: #### L IPR #### [address] [address] Procurement Buyer: Jersey Dahl MD #### CDP, CP #### [address] [place] [phone] Procurement Buyer: Kayley Doll MD Glucose [Mass/Vol] 118 mg/dL High 70-99 [facility] Comment on above: Performed By: #### L IPR #### [address] [address] Procurement Buyer: Jersey Dahl MD #### CDP, CP #### [address] [place] [phone] Procurement Buyer: Kayley Doll MD Potassium [Moles/Vol] 3.4 mmol/L Low 3.7-5.3 [facility] Comment on above: Performed By: #### L IPR #### [address] [address] Procurement Buyer: Jersey Dahl MD #### CDP, CP #### [facility] [address] [place] [address] [address]. [place], [place] [phone] Procurement Buyer: Kayley Doll MD Sodium [Moles/Vol] 156 mmol/L High 135-144 [facility] Comment on above: Performed By: #### L IPR #### [facility] [address] [place], [place] [phone] Procurement Buyer: Jersey Dahl MD #### CDP, CP #### [facility] [address] [place], [place] [phone] Procurement Buyer: Kayley Doll MD Urea nitrogen [Mass/Vol] 31 mg/dL High 8-23 [facility] Comment on above: Performed By: #### L IPR #### [facility] [address] [place] [address] Procurement Buyer: Jersey Dahl MD #### CDP, CP #### [facility] [address] [place], [place] [phone] Procurement Buyer: Kayley Doll MD Anion gap [Moles/Vol] 6 mmol/L Low 9-17 [facility] Comment on above: Performed By: #### B MP #### [facility] [address] [place], [place] [phone] Procurement Buyer: Kayley Doll MD BUN/CRE Ratio 35 High 9-20 [facility] Comment on above: Performed By: #### B MP #### [facility] [address] [place], [place] [phone] Procurement Buyer: Kayley Doll MD Calcium [Mass/Vol] 10.4 mg/dL Normal 8.6-10.4 [facility] Comment on above: Performed By: #### B MP #### [facility] [address] [place], [place] [phone] Procurement Buyer: Kayley Doll MD Chloride [Moles/Vol] 118 mmol/L High 98-107 [facility] Comment on above: Performed By: #### B MP #### [facility] [address] [place], [place] [phone] Procurement Buyer: Kayley Doll MD CO2 [Moles/Vol] 32 mmol/L High 20-31 [facility] Comment on above: Performed By: #### B MP #### [facility] [address] [place] [address] Procurement Buyer: Kayley Doll MD Creatinine [Mass/Vol] 0.91 mg/dL High 0.50-0.90 [facility] Comment on above: Performed By: #### B MP #### [facility] [address] [place] [address] Procurement Buyer: Kayley Doll MD GFR/1.73 sq M.predicted among non-blacks MDRD (S/P/Bld) [Vol rate/Area] mL/min/{1.73_m2} Normal >60 [facility] Comment on above: Result Comment: These results [...] secretion. Performed By: #### B MP #### [address] [place] [address] Procurement Buyer: Kayley Doll MD Glucose [Mass/Vol] 94 mg/dL Normal 70-99 [facility] Comment on above: Performed By: #### B MP #### [facility] [address] [place] [address] Procurement Buyer: Kayley Doll MD Potassium [Moles/Vol] 3.5 mmol/L Low 3.7-5.3 [facility] Comment on above: Performed By: #### B MP #### [facility] [address] [place] [address] Procurement Buyer: Kayley Doll MD Sodium [Moles/Vol] 156 mmol/L High 135-144 [facility] Comment on above: Performed By: #### B MP #### [facility] [address] [place] [address] Procurement Buyer: Kayley Doll MD Urea nitrogen [Mass/Vol] 32 mg/dL High 8-23 [facility] Comment on above: Performed By: #### B MP #### [facility] [address] [place] [address] Procurement Buyer: Kayley Doll MD Anion gap [Moles/Vol] 7 mmol/L Low 9-17 [facility] Comment on above: Performed By: #### L IPR #### [address] [address] Procurement Buyer: Jersey Dahl MD #### CDP, CP #### [facility] [address] [place] [address] [address] [place] [phone] Procurement Buyer: Kayley Doll MD BUN/CRE Ratio 36 High 9-20 [facility] Comment on above: Performed By: #### L IPR #### [address] [address] Procurement Buyer: Jersey Dahl MD #### CDP, CP #### [facility] [address] [place] [address] [place] [place], [place] 5366583 Procurement Buyer: Kayley Doll MD Calcium [Mass/Vol] 10.3 mg/dL Normal 8.6-10.4 [facility] Comment on above: Performed By: #### L IPR #### [address] [address] Procurement Buyer: Jersey Dahl MD #### CDP, CP #### [facility] [address] [place], [place] [phone] Procurement Buyer: Kayley Doll MD Chloride [Moles/Vol] 117 mmol/L High 98-107 [facility] Comment on above: Performed By: #### L IPR #### [place] [address] [place] [address] Procurement Buyer: Jersey Dahl MD #### CDP, CP #### [facility] [address] [place], [place] [phone] Procurement Buyer: Kayley Doll MD CO2 [Moles/Vol] 30 mmol/L Normal 20-31 [facility] Comment on above: Performed By: #### L IPR #### [address] [address] Procurement Buyer: Jersey Dahl MD #### CDP, CP #### [facility] [address] [place], [place] [phone] Procurement Buyer: Kayley Doll MD Creatinine [Mass/Vol] 0.90 mg/dL Normal 0.50-0.90 [facility] Comment on above: Performed By: #### L IPR #### [address] [address] Procurement Buyer: Jersey Dahl MD #### CDP, CP #### [facility] [address] [place] [address] [place], [place] [phone] Procurement Buyer: Kayley Doll MD GFR/1.73 sq M.predicted among non-blacks MDRD (S/P/Bld) [Vol rate/Area] mL/min/{1.73_m2} Normal >60 [facility] Comment on above: Result Comment: These results [...] secretion. Performed By: #### L IPR #### [address] [address] Procurement Buyer: Jersey Dahl MD #### CDP, CP #### [facility] [address] [place], [place] [phone] Procurement Buyer: Kayley Doll MD Glucose [Mass/Vol] 140 mg/dL High 70-99 [facility] Comment on above: Performed By: #### L IPR #### [address] [address] Procurement Buyer: Jersey Dahl MD #### CDP, CP #### [address] [place], [place] [phone] Procurement Buyer: Kayley Doll MD Potassium [Moles/Vol] 3.0 mmol/L Low 3.7-5.3 [facility] Comment on above: Performed By: #### L IPR #### [address] [address] Procurement Buyer: Jersey Dahl MD #### CDP, CP #### [address] [place], [place] 6571383 Procurement Buyer: Kayley Doll MD Sodium [Moles/Vol] 154 mmol/L High 135-144 [facility] Comment on above: Performed By: #### L IPR #### [address] [address] Procurement Buyer: Jersey Dahl MD #### CDP, CP #### [facility] [address] [place] [address] Dr[place], [place] [phone] Procurement Buyer: Kayley Doll MD Urea nitrogen [Mass/Vol] 32 mg/dL High 8-23 [facility] Comment on above: Performed By: #### L IPR #### [address] [address] Procurement Buyer: Jersey Dahl MD #### CDP, CP #### [facility] [address] [place] [address] Dr[address] [place] [phone] Procurement Buyer: Kayley Doll MD Anion gap [Moles/Vol] 10 mmol/L Normal 9-17 [facility] Comment on above: Performed By: #### L IPR #### [facility] [address] [place] [address] Procurement Buyer: Jersey Dahl MD #### CDP, CP #### [facility] [address] [place], [place] 2393483 Procurement Buyer: Kayley Doll MD BUN/CRE Ratio 37 High 9-20 [facility] Comment on above: Performed By: #### L IPR #### [address] [address] Procurement Buyer: Jersey Dahl MD #### CDP, CP #### [facility] [address] [place] [address] [address] [place], [place] [phone] Procurement Buyer: Kayley Doll MD Calcium [Mass/Vol] 10.3 mg/dL Normal 8.6-10.4 [facility] Comment on above: Performed By: #### L IPR #### [facility] [address] [place] [address] Procurement Buyer: Jersey Dahl MD #### CDP, CP #### [facility] [address] [place] [address] [address] [place], [place] [phone] Procurement Buyer: Kayley Doll MD Chloride [Moles/Vol] 116 mmol/L High 98-107 [facility] Comment on above: Performed By: #### L IPR #### [facility] [address] [place] [address] Procurement Buyer: Jersey Dahl MD #### CDP, CP #### [facility] [address] [place], [place] [phone] Procurement Buyer: Kayley Doll MD CO2 [Moles/Vol] 29 mmol/L Normal 20-31 [facility] Comment on above: Performed By: #### L IPR #### [place] [address] [place] [address] Procurement Buyer: Jersey Dahl MD #### CDP, CP #### [facility] [address] [place], [place] [phone] Procurement Buyer: Kayley Doll MD Creatinine [Mass/Vol] 0.94 mg/dL High 0.50-0.90 [facility] Comment on above: Performed By: #### L IPR #### [address] [address] Procurement Buyer: Jersey Dahl MD #### CDP, CP #### [facility] [address] [place], [place] [phone] Procurement Buyer: Kayley Doll MD GFR/1.73 sq M.predicted among non-blacks MDRD (S/P/Bld) [Vol rate/Area] mL/min/{1.73_m2} Normal >60 [facility] Comment on above: Result Comment: These results [...] secretion. Performed By: #### L IPR #### [facility] [address] [place] [address] Procurement Buyer: Jersey Dahl MD #### CDP, CP #### [facility] [address] [place], [place] [phone] Procurement Buyer: Kayley Doll MD Glucose [Mass/Vol] 144 mg/dL High 70-99 [facility] Comment on above: Performed By: #### L IPR #### [address] [address] Procurement Buyer: Jersey Dahl MD #### CDP, CP #### [facility] [address] [place], [place] [phone] Procurement Buyer: Kayley Doll MD Potassium [Moles/Vol] 3.3 mmol/L Low 3.7-5.3 [facility] Comment on above: Performed By: #### L IPR #### [address] [address] Procurement Buyer: Jersey Dahl MD #### CDP, CP #### [facility] [facility] [address] [place], [place] [id number] Procurement Buyer: Kayley Doll MD Sodium [Moles/Vol] 155 mmol/L High 135-144 [facility] Comment on above: Performed By: #### L IPR #### [address] [address] Procurement Buyer: Jersey Dahl MD #### CDP, CP #### [facility] [address] [place] [address] Dr. [place] [id number] Procurement Buyer: Kayley Doll MD Urea nitrogen [Mass/Vol] 35 mg/dL High 8-23 [facility] Comment on above: Performed By: #### L IPR #### [address] [address] Procurement Buyer: Jersey Dahl MD #### CDP, CP #### [facility] [address] [place] [address] Dr. [place], [place] [id number] Procurement Buyer: Kayley Doll MD Basic Metabolic Profileon Anion gap [Moles/Vol] 10 mmol/L Normal 7-17 [facility] Comment on above: Order Comment: until sodium normalized Performed By: #### C [id number] ####[facility] [place] [address] Calcium [Mass/Vol] 9.1 mg/dL Normal 8.5-10.3 [facility] Comment on above: Order Comment: until sodium normalized Performed By: #### C [id number] ####[address] [address] Chloride [Moles/Vol] 117 mmol/L High 98-110 [facility] Comment on above: Order Comment: until sodium normalized Performed By: #### C [id number] ####[address] [address] CO2 [Moles/Vol] 28 mmol/L Normal 22-32 [facility] Comment on above: Order Comment: until sodium normalized Performed By: #### C [id number] ####[address] [address] Creatinine [Mass/Vol] 1.26 mg/dL High 0.44-1.03 [facility] Comment on above: Order Comment: until sodium normalized Performed By: #### C [id number] ####[address] [address] Glucose [Mass/Vol] 90 mg/dL Normal 70-99 [facility] Comment on above: Order Comment: until sodium normalized Performed By: #### C [id number] ####[address] [address] Potassium [Moles/Vol] 3.9 mmol/L Normal 3.4-4.8 [facility] Comment on above: Order Comment: until sodium normalized Performed By: #### C [id number] ####[address] [address] Sodium [Moles/Vol] 151 mmol/L High 133-142 [facility] Comment on above: Order Comment: until sodium normalized Performed By: #### C [id number] ####[address] [address] Urea nitrogen [Mass/Vol] 30 mg/dL High 8-26 [facility] Comment on above: Order Comment: until sodium normalized Performed By: #### C [id number] ####[address] [address] Urea nitrogen/Creatinine [Mass ratio] 23.8 mg/mg High 10.0-20.0 [facility] Comment on above: Order Comment: until sodium normalized Performed By: #### C D:[id number] ####[address] [address] Anion gap [Moles/Vol] 10 mmol/L Normal 7-17 [facility] Comment on above: Order Comment: until sodium normalized Performed By: #### C [id number] #### [address] [address] Calcium [Mass/Vol] 9.2 mg/dL Normal 8.5-10.3 [facility] Comment on above: Order Comment: until sodium normalized Performed By: #### C [id number] #### [address] [address] Chloride [Moles/Vol] 116 mmol/L High 98-110 [facility] Comment on above: Order Comment: until sodium normalized Performed By: #### C D:[id number] #### [address] [address] CO2 [Moles/Vol] 29 mmol/L Normal 22-32 [facility] Comment on above: Order Comment: until sodium normalized Performed By: #### C D:[id number] #### [address] [address] Creatinine [Mass/Vol] 1.21 mg/dL High 0.44-1.03 [facility] Comment on above: Order Comment: until sodium normalized Performed By: #### C [id number] #### [address] [address] Glucose [Mass/Vol] 81 mg/dL Normal 70-99 [facility] Comment on above: Order Comment: until sodium normalized Performed By: #### C D:[id number] #### [address] [address] Potassium [Moles/Vol] 4.0 mmol/L Normal 3.4-4.8 [facility] Comment on above: Order Comment: until sodium normalized Performed By: #### C D:[id number] #### [address] [address] Sodium [Moles/Vol] 151 mmol/L High 133-142 [facility] Comment on above: Order Comment: until sodium normalized Performed By: #### C D:[id number] #### [address] [address] Urea nitrogen [Mass/Vol] 29 mg/dL High 8-26 [facility] Comment on above: Order Comment: until sodium normalized Performed By: #### C D:[id number] #### [address] [address] Urea nitrogen/Creatinine [Mass ratio] 24.0 mg/mg High 10.0-20.0 [facility] Comment on above: Order Comment: until sodium normalized Performed By: #### C D:[id number] #### [address] [address] Anion gap [Moles/Vol] 9 mmol/L Normal 7-17 [facility] Comment on above: Performed By: #### U CI #### [address] [address] Calcium [Mass/Vol] 9.4 mg/dL Normal 8.5-10.3 [facility] Comment on above: Performed By: #### U CI #### [address] [address] Chloride [Moles/Vol] 116 mmol/L High 98-110 [facility] Comment on above: Performed By: #### U CI #### [address] [address] CO2 [Moles/Vol] 30 mmol/L Normal 22-32 [facility] Comment on above: Performed By: #### U CI #### [address] [address] Creatinine [Mass/Vol] 1.31 mg/dL High 0.44-1.03 [facility] Comment on above: Performed By: #### U CI #### [address] [address] Glucose [Mass/Vol] 94 mg/dL Normal 70-99 [facility] Comment on above: Performed By: #### U CI #### [address] [address] Potassium [Moles/Vol] 4.0 mmol/L Normal 3.4-4.8 [facility] Comment on above: Performed By: #### U CI #### [address] [address] Sodium [Moles/Vol] 151 mmol/L High 133-142 [facility] Comment on above: Performed By: #### U CI #### [address] [address] Urea nitrogen [Mass/Vol] 31 mg/dL High 8-26 [facility] Comment on above: Performed By: #### U CI #### [address] [address] Urea nitrogen/Creatinine [Mass ratio] 23.7 mg/mg High 10.0-20.0 [facility] Comment on above: Performed By: #### U CI #### [address] [address] Anion gap [Moles/Vol] 9 mmol/L Normal 7-17 [facility] Comment on above: Order Comment: until sodium normalized Performed By: #### C [id number] #### [address] [address] Calcium [Mass/Vol] 9.2 mg/dL Normal 8.5-10.3 [facility] Comment on above: Order Comment: until sodium normalized Performed By: #### C [id number] #### [address] [address] Chloride [Moles/Vol] 116 mmol/L High 98-110 [facility] Comment on above: Order Comment: until sodium normalized Performed By: #### C [id number] #### [address] [address] CO2 [Moles/Vol] 29 mmol/L Normal 22-32 [facility] Comment on above: Order Comment: until sodium normalized Performed By: #### C D:[id number] #### [address] [address] Creatinine [Mass/Vol] 1.22 mg/dL High 0.44-1.03 [facility] Comment on above: Order Comment: until sodium normalized Performed By: #### C [id number] #### [address] [address] Glucose [Mass/Vol] 145 mg/dL High 70-99 [facility] Comment on above: Order Comment: until sodium normalized Performed By: #### C D:[id number] #### [address] [address] Potassium [Moles/Vol] 3.9 mmol/L Normal 3.4-4.8 [facility] Comment on above: Order Comment: until sodium normalized Performed By: #### C [id number] #### [address] [address] Sodium [Moles/Vol] 150 mmol/L High 133-142 [facility] Comment on above: Order Comment: until sodium normalized Performed By: #### C D:[id number] #### [address] [address] Urea nitrogen [Mass/Vol] 30 mg/dL High 8-26 [facility] Comment on above: Order Comment: until sodium normalized Performed By: #### C D:[id number] #### [address] [address] Urea nitrogen/Creatinine [Mass ratio] 24.6 mg/mg High 10.0-20.0 [facility] Comment on above: Order Comment: until sodium normalized Performed By: #### C D:[id number] #### [address] [address] Anion gap [Moles/Vol] 11 mmol/L Normal 7-17 [facility] Comment on above: Order Comment: until sodium normalized Performed By: #### C [id number] #### [address] [address] Calcium [Mass/Vol] 9.5 mg/dL Normal 8.5-10.3 [facility] Comment on above: Order Comment: until sodium normalized Performed By: #### C [id number] #### [address] [address] Chloride [Moles/Vol] 117 mmol/L High 98-110 [facility] Comment on above: Order Comment: until sodium normalized Performed By: #### C D:[id number] #### [address] [address] CO2 [Moles/Vol] 28 mmol/L Normal 22-32 [facility] Comment on above: Order Comment: until sodium normalized Performed By: #### C D:[id number] #### [address] [address] Creatinine [Mass/Vol] 1.14 mg/dL High 0.44-1.03 [facility] Comment on above: Order Comment: until sodium normalized Performed By: #### C D:[id number] #### [address] [address] Glucose [Mass/Vol] 99 mg/dL Normal 70-99 [facility] Comment on above: Order Comment: until sodium normalized Performed By: #### C D:[id number] #### [address] [address] Potassium [Moles/Vol] 3.4 mmol/L Normal 3.4-4.8 [facility] Comment on above: Order Comment: until sodium normalized Performed By: #### C D:[id number] #### [address] [address] Sodium [Moles/Vol] 153 mmol/L High 133-142 [facility] Comment on above: Order Comment: until sodium normalized Performed By: #### C [id number] #### [address] [address] Urea nitrogen [Mass/Vol] 33 mg/dL High 8-26 [facility] Comment on above: Order Comment: until sodium normalized Performed By: #### C D:[id number] #### [address] [address] Urea nitrogen/Creatinine [Mass ratio] 28.9 mg/mg High 10.0-20.0 [facility] Comment on above: Order Comment: until sodium normalized Performed By: #### C D:[id number] #### [address] [address] Blood Gas Arterialon 10-09- 023 Base Excess Art 6.0 mEq/L High -2.0-2.0 [facility] Comment on above: Performed By: #### C D:[id number] #### [address] [address] BG Emigdio Test Satisfactory Normal [facility] Comment on above: Performed By: #### C [id number] #### [address] [address] BG Collection Site Rt Rad Normal [facility] Comment on above: Performed By: #### C D:[id number] #### [address] [address] Carboxyhemoglobin Arterial 1.0 % total Normal 0.0-2.0 [facility] Comment on above: Performed By: #### C D:[id number] #### [address] [address] Hb Totl Arterial 9.3 g% Low 12.0-16.0 [facility] Comment on above: Performed By: #### C D:[id number] #### [address] [address] HbO2 Art 97 % total Normal 94-100 [facility] Comment on above: Performed By: #### C D:[id number] #### [address] [address] HCO3 (Bld) [Moles/Vol] 32 mmol/L High 21-27 [facility] Comment on above: Performed By: #### C D:[id number] #### [address] [address] Met Hb Arterial 0.6 % total Normal 0.0-2.0 [facility] Comment on above: Performed By: #### C D:[id number] #### [address] [address] O2 Meth O2 Normal [facility] Comment on above: Performed By: #### C D:[id number] #### [address] [address] pCO2 Art 55 mmHg High 35-45 [facility] Comment on above: Performed By: #### C D:[id number] #### [address] [address] pH Art 7.38 Normal 7.35-7.45 [facility] Comment on above: Performed By: #### C D:[id number] #### [address] [address] pO2 Art 112 mmHg High 80-100 [facility] Comment on above: Performed By: #### C [id number] #### [address] [address] CBC w/ Diffon 10-09-2022 Erythrocyte distribution width (RBC) [Ratio] 16.4 % High 11.6-14.8 [facility] Comment on above: Performed By: #### B HOUSE SHORER #### [facility] [address] [place] [address] Hematocrit (Bld) [Volume fraction] 29.2 % Low 36.0-46.0 [facility] Comment on above: Performed By: #### B HOUSE SHORER #### [address] [address] Hemoglobin (Bld) [Mass/Vol] 9.7 g/dL Low 12.0-16.0 [facility] Comment on above: Performed By: #### B HOUSE SHORER #### [address] [address] MCH (RBC) [Entitic mass] 31.3 pg Normal 27.0-35.0 [facility] Comment on above: Performed By: #### B HOUSE SHORER #### [address] [address] MCHC 33.2 % Normal 31.0-37.0 [facility] Comment on above: Performed By: #### B HOUSE SHORER #### [address] [address] MCV (RBC) [Entitic vol] 94.1 fL Normal 80.0-100.0 [facility] Comment on above: Performed By: #### B HOUSE SHORER #### [facility] [address] [place] [address] Platelet 187 x10*3/mcL Normal 150-350 [facility] Comment on above: Performed By: #### B HOUSE SHORER #### [address] [address] Platelet mean volume (Bld) [Entitic vol] 8.5 fL Normal 6.7-10.6 [facility] Comment on above: Performed By: #### B HOUSE SHORER #### [address] [address] RBC 3.10 x10*6/mcL Low 3.80-5.20 [facility] Comment on above: Performed By: #### B HOUSE SHORER #### [address] [address] WBC 5.8 x10*3/mcL Normal 4.5-11.0 [facility] Comment on above: Performed By: #### B HOUSE SHORER #### [address] [address] CMPon 10-09-2022 Albumin [Mass/Vol] 3.2 g/dL Normal 3.2-4.9 [facility] Comment on above: Performed By: #### C OMP #### [address] [address] Albumin/Globulin [Mass ratio] 1.1 {ratio} Normal 1.1-2.2 [facility] Comment on above: Performed By: #### C OMP #### [address] [address] Alk Phos 75 IU/L Normal 32-91 [facility] Comment on above: Performed By: #### C OMP #### [address] [address] ALT [Catalytic activity/Vol] 27 U/L Normal 14-54 [facility] Comment on above: Performed By: #### C OMP #### [address] [address] Anion gap [Moles/Vol] 10 mmol/L Normal 7-17 [facility] Comment on above: Performed By: #### C OMP #### [address] [address] AST [Catalytic activity/Vol] 24 U/L Normal 15-41 [facility] Comment on above: Performed By: #### C OMP #### [address] [address] Bili Total 0.9 mg/dL Normal 0.3-1.2 [facility] Comment on above: Performed By: #### C OMP #### [address] [address] Calcium [Mass/Vol] 9.4 mg/dL Normal 8.5-10.3 [facility] Comment on above: Performed By: #### C OMP #### [address] [place] [address] Chloride [Moles/Vol] 117 mmol/L High 98-110 [facility] Comment on above: Performed By: #### C OMP #### [address] [place] [address] CO2 [Moles/Vol] 28 mmol/L Normal 22-32 [facility] Comment on above: Performed By: #### C OMP #### [address] [address] Creatinine [Mass/Vol] 0.95 mg/dL Normal 0.44-1.03 [facility] Comment on above: Performed By: #### C OMP #### [address] [address] Glucose [Mass/Vol] 150 mg/dL High 70-99 [facility] Comment on above: Performed By: #### C OMP #### [address] [place] [address] Potassium [Moles/Vol] 3.3 mmol/L Low 3.4-4.8 [facility] Comment on above: Performed By: #### C OMP #### [address] [address] Protein [Mass/Vol] 6.1 g/dL Low 6.5-8.1 [facility] Comment on above: Performed By: #### C OMP #### [address] [place] [address] Sodium [Moles/Vol] 152 mmol/L High 133-142 [facility] Comment on above: Performed By: #### C OMP #### [address] [place] [address] Urea nitrogen [Mass/Vol] 33 mg/dL High 8-26 [facility] Comment on above: Performed By: #### C OMP #### [address] [address] Urea nitrogen/Creatinine [Mass ratio] 34.7 mg/mg High 10.0-20.0 [facility] Comment on above: Performed By: #### C OMP #### [address] [address] Diff Autoon 10-09-2022 Baso Absolute 0.0 x10*3/mcL Normal 0.0-0.2 [facility] Comment on above: Performed By: #### . Automated Diff ####[address] [address] Basophils/100 WBC (Bld) 0.6 % Normal 0.0-1.5 [facility] Comment on above: Performed By: #### . Automated Diff ####[address] [address] Eos Absolute 0.1 x10*3/mcL Normal 0.0-0.4 [facility] Comment on above: Performed By: #### . Automated Diff ####[address] [address] Eosinophils/100 WBC (Bld) 2.5 % Normal 0.0-5.4 [facility] Comment on above: Performed By: #### . Automated Diff ####[address] [address] Lymph Absolute 0.8 x10*3/mcL Low 1.0-4.8 [facility] Comment on above: Performed By: #### . Automated Diff ####[address] [address] Lymphocytes/100 WBC (Bld) 14.5 % Low 27.2-40.8 [facility] Comment on above: Performed By: #### . Automated Diff ####[address] [address] Tensas Absolute 0.3 x10*3/mcL Normal 0.1-1.1 [facility] Comment on above: Performed By: #### . Automated Diff ####[address] [address] Monocytes/100 WBC (Bld) 5.8 % Normal 3.7-11.9 [facility] Comment on above: Performed By: #### . Automated Diff ####[place] [id number] Neutro Absolute 4.5 x10*3/mcL Normal 1.8-7.7 [facility] Comment on above: Performed By: #### . Automated Diff ####[place] [address] Neutro Auto 76.6 % High 47.2-70.8 [facility] Comment on above: Performed By: #### . Automated Diff ####[place] [id number] Lactic Acid, Initial w/Rflx 3 Houron 10-09-2022 Lactic Acid, Initial 1.4 mmol/L Normal 0.5-2.0 [facility] Comment on above: Performed By: #### C D:[id number] ####[place] [address] MRSA, PCRon 10-09-2022 LAB ONLY Result Called? No Normal [facility] Comment on above: Performed By: #### B HOUSE SHORER #### [place] [id number] Methicillin Resistant Staph aurus(MRSA) Not detected Normal Not Detected [facility] Comment on above: Result Comment: Mut ations or polymorphisms in primer or probe binding regions may affect detection of new or unknown MRSA variants resulting in a false negative. The Volt Xpert MRSA Assay is a qualitative in [...] to the clinician. Performed By: #### B HOUSE SHORER #### [address] [address] Magnesiumon 10-09-2022 Magnesium [Mass/Vol] 1.5 mg/dL Low 1.7-2.4 [facility] Comment on above: Performed By: #### C D:[id number] #### [address] [address] Myoglobinon 10-09-2022 Myoglobin [Mass/Vol] 37.1 ng/mL Normal [facility] Comment on above: Performed By: #### C OMP #### [address] [address] Osmol,Serumon 10-09-2022 Serum Osmolality 319 mOsm/kg High 280-295 [facility] Comment on above: Performed By: #### C [id number] #### [address] [address] Outside [facility] Correspo ndenceon 10-09-2022 Outside [facility] Correspondence [phone] [id number] [facility] PTon 10-09-2022 INR Coag (PPP) [Relative time] 1.1 {INR} Normal <=3.5 [facility] Comment on above: Result Comment: INR has no normal range. INR Therapeutic range is: 2.0-3.0 (AF, CVA, TIAs, DVT prophylaxis, acute DVT) 2.5-3.5 [facility] Performed By: #### C D:[id number] #### [address] [address] PT Coag (PPP) [Time] 11.5 s Normal 9.3-11.9 [facility] Comment on above: Performed By: #### C D:[id number] #### [address] [address] PTTon 10-09-2022 aPTT Coag (Bld) [Time] 29.1 s Normal 20.6-29.2 [facility] Comment on above: Performed By: #### C OMP #### [address] [address] Phosphoruson 10-09-2022 Phosphate [Mass/Vol] 2.8 mg/dL Normal 2.5-4.6 [facility] Comment on above: Performed By: #### C D:[id number] #### [address] [address] TSHon 10-09-2022 TSH Qn 0.97 m[IU]/L Normal 0.45-5.33 [facility] Comment on above: Result Comment: Refe rence Ranges for individuals from to 18 years of age were obtained from The Inna Asencio Handbook (20 ed) published by [facility]. Reference Ranges for Females: Females, 1st Trimester 0.05 ? 3.7 uIU/mL Females, 2nd Trimester 0.31 ? 4.35 uIU/mL Females, 3rd Trimester 0.41 ? 5.18 uIU/mL Performed By: #### C D:[id number] #### [address] [address] Troponin-Ion 10-09-2022 Troponin I.cardiac [Mass/Vol] ng/mL Normal 0.00-0.03 [facility] Comment on above: Result Comment: An i ncreased Troponin-I value, in the absence of myocardial ischemia, may indicate other etiologies of cardiac damage. Performed By: #### C D:[id number] #### [address] [address] U Lyteson 10-09-2022 Chloride [Moles/Vol] 175 mmol/L Normal [facility] Comment on above: Performed By: #### C OMP #### [address] [address] Potassium [Moles/Vol] 62.0 mmol/L Normal [facility] Comment on above: Performed By: #### C OMP #### [address] [address] Sodium [Moles/Vol] 150 mmol/L Normal [facility] Comment on above: Performed By: #### C OMP #### [address] [address] U Osmolon 10-09-2022 Urine Osmolality 593 mOsm/kg H2O Normal 50-1200 [facility] Comment on above: Order Comment: Pleas e obtain urine and serum testing together. Place Ellison, drain bladder, then obtain sample. Performed By: #### B HOUSE SHORER #### [address] [address] UA w Culture if Indon 2022 Color (U) Yellow Normal [facility] Comment on above: Performed By: #### U CI #### [address] [address] Ketones Ql (U) 10 mg/dL Abnormal Negative [facility] Comment on above: Performed By: #### U CI #### [address] [address] UA Blood Negative Normal Negative [facility] Comment on above: Performed By: #### U CI #### [address] [address] UA Clarity Turbid Normal [facility] Comment on above: Performed By: #### U CI #### [address] [address] UA Glucose Normal Normal Negative [facility] Comment on above: Performed By: #### U CI #### [address] [address] UA Leukocyte Esterase 500 Abnormal Negative [facility] Comment on above: Performed By: #### U CI #### [address] [address] UA Nitrite Negative Normal Negative [facility] Comment on above: Performed By: #### U CI #### [address] [address] UA pH 5.0 Normal 4.5 - 7.8 [facility] Comment on above: Performed By: #### U CI #### [address] [address] UA Protein 30 mg/dL Abnormal Negative [facility] Comment on above: Performed By: #### U CI #### [address] [address] UA Source Catheter Normal [facility] Comment on above: Performed By: #### U CI #### [address] [address] UA Spec Grav 1.026 Normal 1.003-1.035 [facility] Comment on above: Performed By: #### U CI #### [address] [address] UA Urobilinogen Normal Normal 0.2 - 1.0 [facility] Comment on above: Performed By: #### U CI #### [address] [address] Urobilinogen (U) [Mass/Vol] Negative Normal Negative [facility] Comment on above: Performed By: #### U CI #### [address] [address] XR Chest 1 Viewon 10-09-2022 XR Chest 1 View EXAM: XR Chest 1 View HISTORY: Shortness of breath (SOB), COMPARISON: Chest [...] Electronically Signed in Other Vendor System) Normal [facility] Basic Metabolic Panelon 05 Anion gap [Moles/Vol] 10 mmol/L 9 - 17 mmol/L [facility] Calcium [Mass/Vol] 10.3 mg/dL 8.6 - 10.4 mg/dL [facility] Chloride [Moles/Vol] 116 mmol/L High 98 - 107 mmol/L [facility] CO2 [Moles/Vol] 29 mmol/L 20 - 31 mmol/L [facility] Creatinine [Mass/Vol] 0.94 mg/dL High 0.50 - 0.90 mg /dL [facility] GFR/1.73 sq M.predicted MDRD (S/P/Bld) [Vol rate/Area] - PINF [email or web address] Comment on above: These results are [...] 144 mg/dL High 70 - 99 mg/dL [email or web address] Interpretation and review of laboratory results Abnormal [facility] Potassium [Moles/Vol] 3.3 mmol/L Low 3.7 - 5.3 mmol /L [email or web address] Sodium [Moles/Vol] 155 mmol/L High 135 - 144 mmol/L [facility] Urea nitrogen [Mass/Vol] 35 mg/dL High 8 - 23 mg/dL [facility] Urea nitrogen/Creatinine (Bld) [Mass ratio] 37 High 9 - 20 [facility] Anion gap [Moles/Vol] 10 mmol/L 9 - 17 mmol/L [facility] [employer] Calcium [Mass/Vol] 10.5 mg/dL High 8.6 - 10.4 mg/dL [facility] Chloride [Moles/Vol] 116 mmol/L High 98 - 107 mmol/L [facility] CO2 [Moles/Vol] 29 mmol/L 20 - 31 mmol/L [facility] Creatinine [Mass/Vol] 0.87 mg/dL 0.50 - 0.90 mg /dL [facility] GFR/1.73 sq M.predicted MDRD (S/P/Bld) [Vol rate/Area] - PINF [facility] Comment on above: These results are not [...] 136 mg/dL High 70 - 99 mg/dL [facility] Interpretation and review of laboratory results Abnormal [facility] Potassium [Moles/Vol] 3.4 mmol/L Low 3.7 - 5.3 mmol /L [facility] Sodium [Moles/Vol] 155 mmol/L High 135 - 144 mmol/L [facility] Urea nitrogen [Mass/Vol] 35 mg/dL High 8 - 23 mg/dL [facility] Urea nitrogen/Creatinine (Bld) [Mass ratio] 40 High 9 - 20 [facility] Anion gap [Moles/Vol] 11 mmol/L 9 - 17 mmol/L [facility] Calcium [Mass/Vol] 10.8 mg/dL High 8.6 - 10.4 mg/dL [facility] Chloride [Moles/Vol] 113 mmol/L High 98 - 107 mmol/L [facility] CO2 [Moles/Vol] 28 mmol/L 20 - 31 mmol/L [facility] Creatinine [Mass/Vol] 0.94 mg/dL High 0.50 - 0.90 mg /dL [facility] GFR/1.73 sq M.predicted MDRD (S/P/Bld) [Vol rate/Area] - PINF [facility] Comment on above: These results are not [...] 129 mg/dL High 70 - 99 mg/dL [facility] Interpretation and review of laboratory results Abnormal [facility] Potassium [Moles/Vol] 3.5 mmol/L Low 3.7 - 5.3 mmol /L [facility] Sodium [Moles/Vol] 152 mmol/L High 135 - 144 mmol/L [facility] Urea nitrogen [Mass/Vol] 38 mg/dL High 8 - 23 mg/dL [facility] Urea nitrogen/Creatinine (Bld) [Mass ratio] 40 High 9 - 20 [facility] Anion gap [Moles/Vol] 9 mmol/L 9 - 17 mmol/L [facility] Calcium [Mass/Vol] 10.7 mg/dL High 8.6 - 10.4 mg/dL [facility] Chloride [Moles/Vol] 118 mmol/L High 98 - 107 mmol/L [facility] CO2 [Moles/Vol] 30 mmol/L 20 - 31 mmol/L [facility] Creatinine [Mass/Vol] 0.97 mg/dL High 0.50 - 0.90 mg /dL [facility] GFR/1.73 sq M.predicted MDRD (S/P/Bld) [Vol rate/Area] [facility] Comment on above: These results are [...] [Mass/Vol] 78 mg/dL 70 - 99 mg/dL [facility] Interpretation and review of laboratory results Abnormal [facility] Potassium [Moles/Vol] 4.1 mmol/L 3.7 - 5.3 mmol /L [facility] Sodium [Moles/Vol] 157 mmol/L High 135 - 144 mmol/L [facility] Urea nitrogen [Mass/Vol] 37 mg/dL High 8 - 23 mg/dL [facility] Urea nitrogen/Creatinine (Bld) [Mass ratio] 38 High 9 - 20 [facility] Basic Metabolic Profon 10-08 Anion gap [Moles/Vol] 10 mmol/L Normal 9-17 [facility] Comment on above: Performed By: #### L IPR #### [address] [place], [place] [phone] Procurement Buyer: Jersey Dahl MD #### CDP, CP #### [facility] [address] [place] [address] [place] [address] Procurement Buyer: Kayley Doll MD BUN/CRE Ratio 40 High 9-20 [facility] Comment on above: Performed By: #### L IPR #### [address] [place] [address] Procurement Buyer: Jersey Dahl MD #### CDP, CP #### [facility] [address] [place] [address] [place] [address] Procurement Buyer: Kayley Doll MD Calcium [Mass/Vol] 10.5 mg/dL High 8.6-10.4 [facility] Comment on above: Performed By: #### L IPR #### [address] [address] Procurement Buyer: Jersey Dahl MD #### CDP, CP #### [address] [place] [address] Procurement Buyer: Kayley Doll MD Chloride [Moles/Vol] 116 mmol/L High 98-107 [facility] Comment on above: Performed By: #### L IPR #### [address] [place] [address] Procurement Buyer: Jersey Dahl MD #### CDP, CP #### [facility] [address] [place], [place] [phone] Procurement Buyer: Kayley Doll MD CO2 [Moles/Vol] 29 mmol/L Normal 20-31 [facility] Comment on above: Performed By: #### L IPR #### [address] [address] Procurement Buyer: Jersey Dahl MD #### CDP, CP #### [facility] [address] [place], [place] [phone] Procurement Buyer: Kayley Doll MD Creatinine [Mass/Vol] 0.87 mg/dL Normal 0.50-0.90 [facility] Comment on above: Performed By: #### L IPR #### [address] [address] Procurement Buyer: Jersey Dahl MD #### CDP, CP #### [facility] [address] [place] [address] [place], [place] [phone] Procurement Buyer: Kayley Doll MD GFR/1.73 sq M.predicted among non-blacks MDRD (S/P/Bld) [Vol rate/Area] mL/min/{1.73_m2} Normal >60 [facility] Comment on above: Result Comment: These results [...] secretion. Performed By: #### L IPR #### [address] [address] Procurement Buyer: Jersey Dahl MD #### CDP, CP #### [address] [place], [place] [phone] Procurement Buyer: Kayley Doll MD Glucose [Mass/Vol] 136 mg/dL High 70-99 [facility] Comment on above: Performed By: #### L IPR #### [address] [address] Procurement Buyer: Jersey Dahl MD #### CDP, CP #### [address] [address] Procurement Buyer: Kayley Doll MD Potassium [Moles/Vol] 3.4 mmol/L Low 3.7-5.3 [facility] Comment on above: Performed By: #### L IPR #### [address] [address] Procurement Buyer: Jersey Dahl MD #### CDP, CP #### [address] [place] [address] Procurement Buyer: Kayley Doll MD Sodium [Moles/Vol] 155 mmol/L High 135-144 [facility] Comment on above: Performed By: #### L IPR #### [address] [address] Procurement Buyer: Jersey Dahl MD #### CDP, CP #### [address] [address] Procurement Buyer: Kayley Doll MD Urea nitrogen [Mass/Vol] 35 mg/dL High 8-23 [facility] Comment on above: Performed By: #### L IPR #### [address] [address] Procurement Buyer: Jersey Dahl MD #### CDP, CP #### [facility] [address] [place] [address] Procurement Buyer: Kayley Doll MD Anion gap [Moles/Vol] 11 mmol/L Normal 9-17 [facility] Comment on above: Performed By: #### L IPR #### [address] [place] [address] Procurement Buyer: Jersey Dahl MD #### CDP, CP #### [address] [place] [address] Procurement Buyer: Kayley Doll MD BUN/CRE Ratio 40 High 9-20 [facility] Comment on above: Performed By: #### L IPR #### [address] [address] Procurement Buyer: Jersey Dahl MD #### CDP, CP #### [facility] [address] [place] [address] [place] [address] Procurement Buyer: Kayley Doll MD Calcium [Mass/Vol] 10.8 mg/dL High 8.6-10.4 [facility] Comment on above: Performed By: #### L IPR #### [address] [address] Procurement Buyer: Jersey Dahl MD #### CDP, CP #### [address] [place] [address] Procurement Buyer: Kayley Doll MD Chloride [Moles/Vol] 113 mmol/L High 98-107 [facility] Comment on above: Performed By: #### L IPR #### [address] [address] Procurement Buyer: Jersey Dahl MD #### CDP, CP #### [address] [place], [place] [phone] Procurement Buyer: Kayley Doll MD CO2 [Moles/Vol] 28 mmol/L Normal 20-31 [facility] Comment on above: Performed By: #### L IPR #### [facility] [address] [place] [address] Procurement Buyer: Jersey Dahl MD #### CDP, CP #### [facility] [address] [place] [address] Procurement Buyer: Kayley Doll MD Creatinine [Mass/Vol] 0.94 mg/dL High 0.50-0.90 [facility] Comment on above: Performed By: #### L IPR #### [facility] [place] [address] Procurement Buyer: Jersey Dahl MD #### CDP, CP #### [facility] [address] [place] [address] Procurement Buyer: Kayley Doll MD GFR/1.73 sq M.predicted among non-blacks MDRD (S/P/Bld) [Vol rate/Area] mL/min/{1.73_m2} Normal >60 [facility] Comment on above: Result Comment: These results [...] secretion. Performed By: #### L IPR #### [facility] [address] [place] [address] Procurement Buyer: Jersey Dahl MD #### CDP, CP #### [facility] [address] [place] [address] Procurement Buyer: Kayley Doll MD Glucose [Mass/Vol] 129 mg/dL High 70-99 [facility] Comment on above: Performed By: #### L IPR #### [address] [address] Procurement Buyer: Jersey Dahl MD #### CDP, CP #### [address] [place], [place] [phone] Procurement Buyer: Kayley Doll MD Potassium [Moles/Vol] 3.5 mmol/L Low 3.7-5.3 [facility] Comment on above: Performed By: #### L IPR #### [address] [address] Procurement Buyer: Jersey Dahl MD #### CDP, CP #### [address] [place], [place] [phone] Procurement Buyer: Kayley Doll MD Sodium [Moles/Vol] 152 mmol/L High 135-144 [facility] Comment on above: Performed By: #### L IPR #### [address] [address] Procurement Buyer: Jersey Dahl MD #### CDP, CP #### [address] [place], [place] [phone] Procurement Buyer: Kayley Doll MD Urea nitrogen [Mass/Vol] 38 mg/dL High 8-23 [facility] Comment on above: Performed By: #### L IPR #### [address] [address] Procurement Buyer: Jersey Dahl MD #### CDP, CP #### [address] [place] [address] Procurement Buyer: Kayley Doll MD Anion gap [Moles/Vol] 9 mmol/L Normal 9-17 [facility] Comment on above: Performed By: #### L IPR #### [address] [address] Procurement Buyer: Jersey Dahl MD #### CDP, CP #### [facility] [address] [place], [place] [phone] Procurement Buyer: Kayley Doll MD BUN/CRE Ratio 38 High 9-20 [facility] Comment on above: Performed By: #### L IPR #### [address] [address] Procurement Buyer: Jersey Dahl MD #### CDP, CP #### [facility] [address] [place], [place] 4[address] Procurement Buyer: Kayley Doll MD Calcium [Mass/Vol] 10.7 mg/dL High 8.6-10.4 [facility] Comment on above: Performed By: #### L IPR #### [address] [address] Procurement Buyer: Jersey Dahl MD #### CDP, CP #### [address] [place] [address] Procurement Buyer: Kayley Doll MD Chloride [Moles/Vol] 118 mmol/L High 98-107 [facility] Comment on above: Performed By: #### L IPR #### [address] [address] Procurement Buyer: Jersey Dahl MD #### CDP, CP #### [facility] [address] [place] [address] [place] [address] Procurement Buyer: Kayley Doll MD CO2 [Moles/Vol] 30 mmol/L Normal 20-31 [facility] Comment on above: Performed By: #### L IPR #### [address] [address] Procurement Buyer: Jersey Dahl MD #### CDP, CP #### [facility] [address] [place] [address] [place], [place] [phone] Procurement Buyer: Kayley Doll MD Creatinine [Mass/Vol] 0.97 mg/dL High 0.50-0.90 [facility] Comment on above: Performed By: #### L IPR #### [address] [place] [address] Procurement Buyer: Jersey Dahl MD #### CDP, CP #### [facility] [address] [place] [address] [place] [address] Procurement Buyer: Kayley Doll MD GFR/1.73 sq M.predicted among non-blacks MDRD (S/P/Bld) [Vol rate/Area] mL/min/{1.73_m2} Normal >60 [facility] Comment on above: Result Comment: These results [...] secretion. Performed By: #### L IPR #### [address] [address] Procurement Buyer: Jersey Dahl MD #### CDP, CP #### [address] [address] Procurement Buyer: Kayley Doll MD Glucose [Mass/Vol] 78 mg/dL Normal 70-99 [facility] Comment on above: Performed By: #### L IPR #### [address] [address] Procurement Buyer: Jersey Dahl MD #### CDP, CP #### [facility] [address] [place] [address] [place] [address] Procurement Buyer: Kayley Doll MD Potassium [Moles/Vol] 4.1 mmol/L Normal 3.7-5.3 [facility] Comment on above: Performed By: #### L IPR #### [facility] [address] [place] [address] Procurement Buyer: Jersey Dahl MD #### CDP, CP #### [facility] [address] [place] [address] [address]. [place], [place] [phone] Procurement Buyer: Kayley Doll MD Sodium [Moles/Vol] 157 mmol/L High 135-144 [facility] Comment on above: Performed By: #### L IPR #### [address] [place] [address] Procurement Buyer: Jersey Dahl MD #### CDP, CP #### [facility] [address] [place] [address] [address] [place], [place] [phone] Procurement Buyer: Kayley Doll MD Urea nitrogen [Mass/Vol] 37 mg/dL High 8-23 [facility] Comment on above: Performed By: #### L IPR #### [address] [place] [address] Procurement Buyer: Jersey Dahl MD #### CDP, CP #### [address] [place], [place] [phone] Procurement Buyer: Kayely Doll MD CBC with Auto Differentialon 10-08-2022 Absolute Eos # 0.06 [facility] Absolute Immature Granulocyte 0.03 [facility] Absolute Lymph # 0.68 Low [facility] Absolute T[place]as # 0.32 [facility] Basophils (Bld) [#/Vol] 0.03 10*3/uL [facility] Basophils/100 WBC (Bld) 0 % 0 - 2 % [facility] Eosinophils/100 WBC (Bld) 1 % 1 - 4 % [facility] Hematocrit (Bld) [Volume fraction] 35.0 % Low 36.3 - 47.1 % [facility] Hemoglobin (Bld) [Mass/Vol] 11.0 g/dL Low 11.9 - 15.1 g/dL [facility] Immature granulocytes/100 WBC (Bld) 0 % 0 [facility] Interpretation and review of laboratory results Abnormal [facility] Lymphocytes/100 WBC (Bld) 10 % Low 24 - 43 % [facility] MCH (RBC) [Entitic mass] 30.9 pg 25.2 - 33.5 pg [facility] MCHC (RBC) [Mass/Vol] 31.4 g/dL 28.4 - 34.8 g/ dL [facility] MCV (RBC) [Entitic vol] 98.3 fL 82.6 - 102.9 fL [facility] Monocytes/100 WBC (Bld) 5 % 3 - 12 % [facility] NRBC Automated 0.0 0.0 per 100 WBC [facility] Platelet distribution width (Bld) [Ratio] 15.5 % High 11.8 - 14.4 % [facility] Platelet mean volume (Bld) [Entitic vol] 10.2 fL 8.1 - 13.5 fL [facility] Platelets (Bld) [#/Vol] 203 10*3/uL [facility] RBC (Bld) [#/Vol] 3.56 10*6/uL Low 3.95 - 5.11 m/uL [facility] Segmented neutrophils/100 WBC (Bld) 84 % High 36 - 65 % [facility] Segs Absolute 5.86 [facility] WBC (Bld) [#/Vol] 7.0 10*3/uL [facility] CBC with Diffon 10-08-2022 Abs. Basophil 0.03 k/uL Normal 0.00-0.20 [facility] Comment on above: Performed By: #### L IPR #### [facility] [address] [place] [address] Procurement Buyer: Jersey Dahl MD #### SARTHAK ISAAC #### [facility] [address] [place] [address] Procurement Buyer: Kayley Doll MD Abs.Imm.Granulocyte 0.03 k/uL Normal 0.00-0.30 [facility] Comment on above: Performed By: #### L IPR #### [address] [address] Procurement Buyer: Jersey Dahl MD #### CDP, CP #### [address] [place] [phone] Procurement Buyer: Kayley Doll MD Abs.Neutrophil (Seg) 5.86 k/uL Normal 1.50-8.10 [facility] Comment on above: Performed By: #### L IPR #### [address] [address] Procurement Buyer: Jersey Dahl MD #### CDP, CP #### [address] [place] [phone] Procurement Buyer: Kayley Doll MD Basophils/100 WBC (Bld) 0 % Normal 0-2 [facility] Comment on above: Performed By: #### L IPR #### [address] [address] Procurement Buyer: Jersey Dahl MD #### CDP, CP #### [address] [place] [phone] Procurement Buyer: Kayley Doll MD Eosinophils (Bld) [#/Vol] 0.06 10*3/uL Normal 0.00-0.44 [facility] Comment on above: Performed By: #### L IPR #### [address] [address] Procurement Buyer: Jersey Dahl MD #### CDP, CP #### [address] [place] [phone] Procurement Buyer: Kayley Doll MD Eosinophils/100 WBC (Bld) 1 % Normal 1-4 [facility] Comment on above: Performed By: #### L IPR #### [address] [address] Procurement Buyer: Jersey Dahl MD #### CDP, CP #### [address] [place], [place] [phone] Procurement Buyer: Kayley Doll MD Erythrocyte distribution width (RBC) [Ratio] 15.5 % High 11.8-14.4 [facility] Comment on above: Performed By: #### L IPR #### [address] [address] Procurement Buyer: Jersey Dahl MD #### CDP, CP #### [address] [place], [place] [phone] Procurement Buyer: Kayley Doll MD Hematocrit (Bld) [Volume fraction] 35.0 % Low 36.3-47.1 [facility] Comment on above: Performed By: #### L IPR #### [address] [address] Procurement Buyer: Jersey Dahl MD #### CDP, CP #### [address] [place], [place] [phone] Procurement Buyer: Kayley Doll MD Hemoglobin (Bld) [Mass/Vol] 11.0 g/dL Low 11.9-15.1 [facility] Comment on above: Performed By: #### L IPR #### [address] [address] Procurement Buyer: Jersey Dahl MD #### CDP, CP #### [address] [place], [place] 0674883 Procurement Buyer: Kayley Doll MD Immature granulocytes/100 WBC (Bld) 0 % Normal 0 [facility] Comment on above: Performed By: #### L IPR #### [address] [address] Procurement Buyer: Jersey Dahl MD #### CDP, CP #### [facility] [address] [place] [address] [place] [address] Procurement Buyer: Kayley Doll MD Lymphocytes (Bld) [#/Vol] 0.68 10*3/uL Low 1.10-3.70 [facility] Comment on above: Performed By: #### L IPR #### [address] [address] Procurement Buyer: Jersey Dahl MD #### CDP, CP #### [address] [place] [phone] Procurement Buyer: Kayley Doll MD Lymphocytes/100 WBC (Bld) 10 % Low 24-43 [facility] Comment on above: Performed By: #### L IPR #### [address] [address] Procurement Buyer: Jersey Dahl MD #### CDP, CP #### [facility] [address] [place] [address] [address] [place] [phone] Procurement Buyer: Kayley Doll MD MCH (RBC) [Entitic mass] 30.9 pg Normal 25.2-33.5 [facility] Comment on above: Performed By: #### L IPR #### [address] [address] Procurement Buyer: Jersey Dahl MD #### CDP, CP #### [address] [place] [phone] Procurement Buyer: Kayley Doll MD MCHC (RBC) [Mass/Vol] 31.4 g/dL Normal 28.4-34.8 [facility] Comment on above: Performed By: #### L IPR #### [address] [address] Procurement Buyer: Jersey Dahl MD #### CDP, CP #### [facility] [address] [place], [place] [phone] Procurement Buyer: Kayley Doll MD MCV (RBC) [Entitic vol] 98.3 fL Normal 82.6-102.9 [facility] Comment on above: Performed By: #### L IPR #### [address] [address] Procurement Buyer: Jersey Dahl MD #### CDP, CP #### [facility] [address] [place] [phone] Procurement Buyer: Kayley Doll MD Monocytes (Bld) [#/Vol] 0.32 10*3/uL Normal 0.10-1.20 [facility] Comment on above: Performed By: #### L IPR #### [address] [address] Procurement Buyer: Jersey Dahl MD #### CDP, CP #### [address] [place], [facility] Procurement Buyer: Kayley Doll MD Monocytes/100 WBC (Bld) 5 % Normal 3-12 [facility] Comment on above: Performed By: #### L IPR #### [address] [address] Procurement Buyer: Jersey Dahl MD #### CDP, CP #### [address] [address] Procurement Buyer: Kayley Doll MD Neutrophil (Seg) 84 % High 36-65 [facility] Comment on above: Performed By: #### L IPR #### [address] [address] Procurement Buyer: Jersey Dahl MD #### CDP, CP #### [facility] [address] [place] [address] [address] [place], [place] 5187783 Procurement Buyer: Kayley Doll MD NRBC Automated 0.0 per 100 WBC Normal 0.0 [facility] Comment on above: Performed By: #### L IPR #### [address] [address] Procurement Buyer: Jersey Dahl MD #### CDP, CP #### [address] [place], [place] [phone] Procurement Buyer: Kayley Doll MD Platelet mean volume (Bld) [Entitic vol] 10.2 fL Normal 8.1-13.5 [facility] Comment on above: Performed By: #### L IPR #### [address] [address] Procurement Buyer: Jersey Dahl MD #### CDP, CP #### [address] [place] [phone] Procurement Buyer: Kayley Doll MD Platelets (Bld) [#/Vol] 203 10*3/uL Normal 138-453 [facility] Comment on above: Performed By: #### L IPR #### [address] [address] Procurement Buyer: Jersey Dahl MD #### CDP, CP #### [address] [place], [place] 3875983 Procurement Buyer: Kayley Doll MD RBC (Bld) [#/Vol] 3.56 10*6/uL Low 3.95-5.11 [facility] Comment on above: Performed By: #### L IPR #### [address] [address] Procurement Buyer: Jersey Dahl MD #### CDP, CP #### [address] [place], [place] [phone] Procurement Buyer: Kayley Doll MD WBC (Bld) [#/Vol] 7.0 10*3/uL Normal 3.5-11.3 [facility] Comment on above: Performed By: #### L IPR #### [facility] [address] [place], [place] [phone] Procurement Buyer: Jersey Dahl MD #### CDP, CP #### [facility] [address] [place] [address] Procurement Buyer: Kayley Doll MD CT HEAD WO CONTRASTon [...] not a suspected or confirmed emergency medical condition->Emergenc y Medical Condition (MA) FINDINGS: BRAIN/VENTRICLES: There is [...] Jay Horn MD 10/08/22 Final result Normal [facility] CT Head WO Contraston 2022 No acute intracranial abnormality. [facility] RIS CONSOLIDATED EXAMINATION: CT OF THE HEAD WITHOUT [...] not a suspected or confirmed emergency medical condition->Emergenc y Medical Condition ([place]) FINDINGS: BRAIN/VENTRICLES: There is [...] of the visualized skull or soft tissues. [facility] Jay Hardy MD - 10/08/2022 EXAMINATION: CT OF THE [...] not a suspected or confirmed emergency medical condition->Emergenc y Medical Condition ([place]) FINDINGS: BRAIN/VENTRICLES: There is [...] soft tissues. IMPRESSION: No acute intracranial abnormality. [employer] Phone: Radiology Study observation (narrative) [employer] Phone: CT Head WO ContrastOrdered B y: Jay Horn on 10-08-2022 [facility] [email or web address] Phone: Comp Metabolic Profon 2022 Albumin [Mass/Vol] 4.4 g/dL Normal 3.5-5.2 [facility] Comment on above: Performed By: #### L IPR #### [address] [address] Procurement Buyer: Jersey Dahl MD #### CDP, CP #### [facility] [address] [place], [place] [phone] Procurement Buyer: Kayley Doll MD Albumin/Glob Ratio 1.4 Normal 1.0-2.5 [facility] Comment on above: Performed By: #### L IPR #### [address] [address] Procurement Buyer: Jersey Dahl MD #### CDP, CP #### [address] [place], [place] [phone] Procurement Buyer: Kayley Doll MD Alkaline Phos 111 U/L High 35-104 [facility] Comment on above: Performed By: #### L IPR #### [address] [address] Procurement Buyer: eJrsey Dahl MD #### CDP, CP #### [address] [place], [place] [phone] Procurement Buyer: Kayley Doll MD ALT [Catalytic activity/Vol] 26 U/L Normal 5-33 [facility] Comment on above: Performed By: #### L IPR #### [address] [address] Procurement Buyer: Jersey Dahl MD #### CDP, CP #### [address] [place], [place] [phone] Procurement Buyer: Kayley Doll MD Anion gap [Moles/Vol] 12 mmol/L Normal 9-17 [facility] Comment on above: Performed By: #### L IPR #### [address] [address] Procurement Buyer: Jersey Dahl MD #### CDP, CP #### [facility] [address] [place], [place] [phone] Procurement Buyer: Kayley Doll MD AST [Catalytic activity/Vol] 23 U/L Normal <32 [facility] Comment on above: Performed By: #### L IPR #### [address] [address] Procurement Buyer: Jersey Dahl MD #### CDP, CP #### [facility] [address] [place], [place] [phone] Procurement Buyer: Kayley Doll MD Bilirubin [Mass/Vol] 0.9 mg/dL Normal 0.3-1.2 [facility] Comment on above: Performed By: #### L IPR #### [address] [address] Procurement Buyer: Jersey Dahl MD #### CDP, CP #### [address] [place], [place] 1226883 Procurement Buyer: Kayley Doll MD BUN/CRE Ratio 40 High 9-20 [facility] Comment on above: Performed By: #### L IPR #### [address] [address] Procurement Buyer: Jersey Dahl MD #### CDP, CP #### [facility] [address] [place], [place] [phone] Procurement Buyer: Kayley Doll MD Calcium [Mass/Vol] 11.3 mg/dL High 8.6-10.4 [facility] Comment on above: Performed By: #### L IPR #### [address] [address] Procurement Buyer: Jersey Dahl MD #### CDP, CP #### [address] [place], [place] 6561783 Procurement Buyer: Kayley Doll MD Chloride [Moles/Vol] 117 mmol/L High 98-107 [facility] Comment on above: Performed By: #### L IPR #### [facility] [address] [place] [address] Procurement Buyer: Jersey Dahl MD #### CDP, CP #### [facility] [address] [place] [address] [place] 2635883 Procurement Buyer: Kayley Doll MD CO2 [Moles/Vol] 29 mmol/L Normal 20-31 [facility] Comment on above: Performed By: #### L IPR #### [address] [address] Procurement Buyer: Jersey Dahl MD #### CDP, CP #### [facility] [address] [place] [address] [place], [place] 6303783 Procurement Buyer: Kayley Doll MD Creatinine [Mass/Vol] 0.97 mg/dL High 0.50-0.90 [facility] Comment on above: Performed By: #### L IPR #### [address] [place] [address] Procurement Buyer: Jersey Dahl MD #### CDP, CP #### [facility] [address] [place] [address] [place] [address] Procurement Buyer: Kayley Doll MD GFR/1.73 sq M.predicted among non-blacks MDRD (S/P/Bld) [Vol rate/Area] mL/min/{1.73_m2} Normal >60 [facility] Comment on above: Result Comment: These results [...] secretion. Performed By: #### L IPR #### [address] [address] Procurement Buyer: Jersey Dahl MD #### CDP, CP #### [address] [place], [place] [phone] Procurement Buyer: Kayley Doll MD Glucose [Mass/Vol] 96 mg/dL Normal 70-99 [facility] Comment on above: Performed By: #### L IPR #### [address] [address] Procurement Buyer: Jersey Dahl MD #### CDP, CP #### [address] [place], [place] 4408983 Procurement Buyer: Kayley Doll MD Potassium [Moles/Vol] 4.1 mmol/L Normal 3.7-5.3 [facility] Comment on above: Performed By: #### L IPR #### [address] [address] Procurement Buyer: Jersey Dahl MD #### CDP, CP #### [address] [place], [place] 1819183 Procurement Buyer: Kayley Doll MD Protein [Mass/Vol] 7.6 g/dL Normal 6.4-8.3 [facility] Comment on above: Performed By: #### L IPR #### [address] [address] Procurement Buyer: Jersey Dahl MD #### CDP, CP #### [address] [place], [place] 1959183 Procurement Buyer: Kayley Doll MD Sodium [Moles/Vol] 158 mmol/L High 135-144 [facility] Comment on above: Performed By: #### L IPR #### [address], [place] [phone] Procurement Buyer: Jersey Dahl MD #### CDP, CP #### [facility] [address] [place] [address] Procurement Buyer: Kayley Doll MD Urea nitrogen [Mass/Vol] 39 mg/dL High 8-23 [facility] Comment on above: Performed By: #### L IPR #### [facility] [address] [place], [place] [phone] Procurement Buyer: Jersey Dahl MD #### MARLIN, CP #### [facility] [address] [place] [address] Procurement Buyer: Kayley Doll MD Comprehensive Metabolic Pane [facility] 10-08-2022 Albumin [Mass/Vol] 4.4 g/dL 3.5 - 5.2 g/dL [facility] Albumin/Globulin [Mass ratio] 1.4 {ratio} 1.0 - 2.5 [facility] ALP [Catalytic activity/Vol] 111 U/L High 35 - 104 U/L [facility] ALT [Catalytic activity/Vol] 26 U/L 5 - 33 U/L [facility] Anion gap [Moles/Vol] 12 mmol/L 9 - 17 mmol/L [facility] AST [Catalytic activity/Vol] 23 U/L NINF - 32 U/L [facility] Bilirubin [Mass/Vol] 0.9 mg/dL 0.3 - 1.2 mg/dL [facility] Calcium [Mass/Vol] 11.3 mg/dL High 8.6 - 10.4 mg/dL [facility] Chloride [Moles/Vol] 117 mmol/L High 98 - 107 mmol/L [facility] CO2 [Moles/Vol] 29 mmol/L 20 - 31 mmol/L [facility] Creatinine [Mass/Vol] 0.97 mg/dL High 0.50 - 0.90 mg /dL [facility] GFR/1.73 sq M.predicted MDRD (S/P/Bld) [Vol rate/Area] - PINF [facility] Comment on above: These results are not [...] [Mass/Vol] 96 mg/dL 70 - 99 mg/dL [facility] Interpretation and review of laboratory results Abnormal [facility] Potassium [Moles/Vol] 4.1 mmol/L 3.7 - 5.3 mmol /L [facility] Protein [Mass/Vol] 7.6 g/dL 6.4 - 8.3 g/dL [facility] Sodium [Moles/Vol] 158 mmol/L High 135 - 144 mmol/L [facility] Urea nitrogen [Mass/Vol] 39 mg/dL High 8 - 23 mg/dL [facility] Urea nitrogen/Creatinine (Bld) [Mass ratio] 40 High 9 - 20 [facility] Cult,Urineon 10-08-2022 Cult,Urine Specimen Description .VOIDED URINE Culture CITROBACTER FREUNDII >[id number] CFU/ML Report Status FINAL 10/07/2022 SUSCEPTIBILITY Organism CITROBACTER FREUNDII Method TIMOTHY Ceftriaxone <=0.25 SUSCEPTIBLE Gentamicin <=1 SUSCEPTIBLE Levofloxacin 1 SUSCEPTIBLE Nitrofurantoin <=16 SUSCEPTIBLE Piperacillin/Tazoba ctam <=4 SUSCEPTIBLE Tobramycin <=1 SUSCEPTIBLE Trimethoprim/Sulfa <=20 SUSCEPTIBLE Susceptible [facility] Comment on above: Performed By: #### L IPR #### [facility] [address] [place] [address] Procurement Buyer: Jersey Dahl MD #### SARTHAK ISAAC #### [facility] [address] [place] [address] Procurement Buyer: Kayley Doll MD EKG 12 LeadOrdered By: Nhan argueta on 10-08-2022 Atrial Rate 57 BPM [facility] Work Phone: P [place] 44 degrees [employer] Work Phone: P-R Interval 144 ms [employer] Work Phone: Q-T Interval 442 ms [employer] Work Phone: QRS Duration 78 ms [employer] Work Phone: QTc Calculation (Bazett) 430 ms [employer] Work Phone: R [place] 35 degrees [employer] Work Phone: T [place] 25 degrees [employer] Work Phone: Ventricular Rate 57 BPM [employer] Work Phone: [employer] Work Phone: EKG 12 Leadon 10-08-2022 Poor data quality, interpretation may be adversely affected Sinus bradycardia Otherwise normal ECG No previous ECGs available Confirmed by Nhan June MD ([id number]) on 10/08/2022 5:02:13 PM [facility] Nhan June MD - 10/08/2022 Poor data quality, interpretation may be adversely affected Sinus bradycardia Otherwise normal ECG No previous ECGs available Confirmed by Nhan June MD ([id number]) on 10/08/2022 5:02:13 PM [employer] Work Phone: Glucose, Whole Bloodon 10-08 Glucose [Mass/Vol] 94 mg/dL 74 - 100 mg/dL [facility] [employer] Micro[employer]opic Urinalysison Bacteria, UA 3+ Abnormal None [facility] [employer] Epithelial Cells UA 0 TO 2 [facility] [employer] [facility] Interpretation and review of laboratory results Abnormal [employer] RBC clumps Auto (Urine sed) [#/Area] 0 TO 2 [employer] WBC, UA GREATER THAN 100 [employer] UA w/Reflex Cultureon 2022 Bilirubin, SemiQt,Ur Negative Normal NEG [facility] Comment on above: Performed By: #### L IPR #### [address] [address] Procurement Buyer: Jersey Dahl MD #### CDP, CP #### [facility] [address] [place] [address] Dr. [place], [place] [phone] Procurement Buyer: Kayley Doll MD Blood, Urine 1+ Abnormal NEG [facility] Comment on above: Performed By: #### L IPR #### [address] [address] Procurement Buyer: Jersey Dahl MD #### CDP, CP #### [facility] [address] [place] [address] Dr. [place], [place] [phone] Procurement Buyer: Kayley Doll MD Clarity (U) Clear Normal CLEAR [facility] Comment on above: Performed By: #### L IPR #### [address] [address] Procurement Buyer: Jersey Dahl MD #### CDP, CP #### [address] [place], [place] [phone] Procurement Buyer: Kayley Doll MD Color (U) Yellow Normal YEL [facility] Comment on above: Performed By: #### L IPR #### [address] [address] Procurement Buyer: Jersey Dahl MD #### CDP, CP #### [facility] [address] [place] [address] Dr. [place], [place] [phone] Procurement Buyer: Kayley Doll MD Glucose Ql (U) Negative Normal NEG [facility] Comment on above: Performed By: #### L IPR #### [address] [address] Procurement Buyer: Jersey Dahl MD #### CDP, CP #### [address] [place], [place] 1192483 Procurement Buyer: Kayley Doll MD Ketones Ql (U) 2+ Abnormal NEG [facility] Comment on above: Performed By: #### L IPR #### [address] [address] Procurement Buyer: Jersey Dahl MD #### CDP, CP #### [address] [place], [place] 4917283 Procurement Buyer: Kayley Doll MD Leukocyte esterase Test strip Ql (U) MODERATE Abnormal NEG [facility] Comment on above: Performed By: #### L IPR #### [address] [address] Procurement Buyer: Jersey Dahl MD #### CDP, CP #### [address] [place] [address]32783 Procurement Buyer: Kayley Doll MD Nitrite,Ur Positive Abnormal NEG [facility] Comment on above: Performed By: #### L IPR #### [address] [address] Procurement Buyer: Jersey Dahl MD #### CDP, CP #### [address] [place] [phone] Procurement Buyer: Kayley Doll MD PH,Ur 6.0 Normal 5.0-9.0 [facility] Comment on above: Performed By: #### L IPR #### [address] [address] Procurement Buyer: Jersey Dahl MD #### CDP, CP #### [address] [place], [place] 3711183 Procurement Buyer: Kayley Doll MD Protein Ql (U) TRACE Abnormal NEG [facility] Comment on above: Performed By: #### L IPR #### [facility] [address] [place] [address] Procurement Buyer: Jersey Dahl MD #### CDP, CP #### [facility] [address] [place] [address] Dr. [place], [place] 9446583 Procurement Buyer: Kayley Doll MD Spec. [place],Ur >1.030 High 1.010-1.020 [facility] Comment on above: Performed By: #### L IPR #### [facility] [address] [place] [address] Procurement Buyer: Jersey Dahl MD #### CDP, CP #### [facility] [address] [place] [address] Dr. [place], [place] 1052683 Procurement Buyer: Kayley Doll MD Urobilinogen,Ur Normal Normal NORM [facility] Comment on above: Performed By: #### L IPR #### [facility] [address] [place] [address] Procurement Buyer: Jersey Dahl MD #### CDP, CP #### [facility] [address] [place] [address] Dr. [place], [place] 3546483 Procurement Buyer: Kayley Doll MD Urinalysis with Reflex to Cu ltureon 10-08-2022 Bilirubin Urine Negative NEGATIVE [facility] Color, UA Yellow Yellow [facility] Glucose Auto test strip (U) [Mass/Vol] Negative NEGATIVE [facility] Interpretation and review of laboratory results Abnormal [facility] Ketones (U) [Mass/Vol] 2+ Abnormal NEGATIVE [facility] Leukocyte esterase Auto test strip Ql (U) MODERATE Abnormal NEGATIVE [facility] Nitrite Auto test strip Ql (U) Positive Abnormal NEGATIVE [facility] Protein (U) [Mass/Vol] 6.0 mg/dL 5.0 - 9.0 [facility] Protein (U) [Mass/Vol] TRACE Abnormal NEGATIVE [facility] Specific [place], UA High 1.010 - 1.020 [facility] ON [facility] Turbidity UA Clear Clear [facility] Urine Hgb 1+ Abnormal NEGATIVE [facility] Urobilinogen, Urine Normal Normal [facility] Urinalysis,Microon 3 Bacteria 3+ Abnormal NONE [facility] Comment on above: Performed By: #### L IPR #### [address] [address] Procurement Buyer: Jersey Dahl MD #### CDP, CP #### [facility] [address] [place] [address] Dr. [place] [phone] Procurement Buyer: Kayley Doll MD Epithelial cells LM Ql (Urine sed) 0 TO 2 Normal 0-25 [facility] Comment on above: Performed By: #### L IPR #### [address] [address] Procurement Buyer: Jersey Dahl MD #### CDP, CP #### [address] [place] [phone] Procurement Buyer: Kayley Doll MD Urine RBC's 0 TO 2 Normal 0-2 [facility] Comment on above: Performed By: #### L IPR #### [address] [address] Procurement Buyer: Jersey Dalh MD #### CDP, CP #### [facility] [address] [place] [address] Dr. [place] [phone] Procurement Buyer: Kayley Doll MD Urine WBC's GREATER THAN 100 Normal 0-5 [facility] Comment on above: Performed By: #### L IPR #### [address] [address] Procurement Buyer: Jersey Dahl MD #### CDP, CP #### [facility] [address] [place] [address] Dr. [place], [place] 0456183 Procurement Buyer: Kayley Doll MD Urinalysis, Routineon 2022 Bilirubin, SemiQt,Ur Negative Normal NEG [facility] Comment on above: Performed By: #### L IPR #### [address] [address] Procurement Buyer: Jersey Dahl MD #### CDP, CP #### [address] [place], [place] 1581383 Procurement Buyer: Kayley Doll MD Blood, Urine Negative Normal NEG [facility] Comment on above: Performed By: #### L IPR #### [address] [address] Procurement Buyer: Jersey Dahl MD #### CDP, CP #### [address] [place], [place] [phone] Procurement Buyer: Kayley Doll MD Clarity (U) Turbid Abnormal CLEAR [facility] Comment on above: Performed By: #### L IPR #### [address] [address] Procurement Buyer: Jersey Dahl MD #### CDP, CP #### [address] [place], [place] [phone] Procurement Buyer: Kayley Doll MD Color (U) Yellow Normal L [facility] Comment on above: Performed By: #### L IPR #### [address] [address] Procurement Buyer: Jersey Dahl MD #### CDP, CP #### [address] [place], [place] 1972683 Procurement Buyer: Kayley Doll MD Glucose Ql (U) Negative Normal NEG [facility] Comment on above: Performed By: #### L IPR #### [address] [address] Procurement Buyer: Jersey Dahl MD #### CDP, CP #### [address] [place] [address] Procurement Buyer: Kayley Doll MD Ketones Ql (U) 1+ Abnormal NEG [facility] Comment on above: Performed By: #### L IPR #### [address] [address] Procurement Buyer: Jersey Dahl MD #### CDP, CP #### [address] [place], [place] 8012783 Procurement Buyer: Kayley Doll MD Leukocyte esterase Test strip Ql (U) Negative Normal NEG [facility] Comment on above: Performed By: #### L IPR #### [address] [address] Procurement Buyer: Jersey Dahl MD #### CDP, CP #### [address] [place] [phone] Procurement Buyer: Kayley Doll MD Nitrite,Ur Positive Abnormal NEG [facility] Comment on above: Performed By: #### L IPR #### [address] [address] Procurement Buyer: Jersey Dahl MD #### CDP, CP #### [address] [place], [place] [phone] Procurement Buyer: Kayley Doll MD PH,Ur 6.0 Normal 5.0-9.0 [facility] Comment on above: Performed By: #### L IPR #### [address] [address] Procurement Buyer: Jersey Dahl MD #### CDP, CP #### [address] [place], [place] [phone] Procurement Buyer: Kayley Doll MD Protein Ql (U) Negative Normal NEG [facility] Comment on above: Performed By: #### L IPR #### [address] [address] Procurement Buyer: Jersey Dahl MD #### CDP, CP #### [address] [place] [phone] Procurement Buyer: Kayley Doll MD Spec. [place],Ur >1.030 High 1.010-1.020 [facility] Comment on above: Performed By: #### L IPR #### [address] [address] Procurement Buyer: Jersey Dahl MD #### CDP, CP #### [address] [place] [phone] Procurement Buyer: Kayley Doll MD Urobilinogen,Ur Normal Normal NORM [facility] Comment on above: Performed By: #### L IPR #### [address] [address] Procurement Buyer: Jersey Dahl MD #### CDP, CP #### [address] [place] [phone] Procurement Buyer: Kayley Doll MD Urinalysis,Microon 3 Amorphous sediment LM Ql (Urine sed) 3+ Abnormal [facility] Comment on above: Performed By: #### L IPR #### [address] [address] Procurement Buyer: Jersey Dahl MD #### CDP, CP #### [address] [place] [address] Procurement Buyer: Kayley Doll MD Bacteria 2+ Abnormal [facility] Comment on above: Performed By: #### L IPR #### [address] [address] Procurement Buyer: Jersey Dahl MD #### CDP, CP #### [facility] [address] [place] [address] Dr. [place], [place] 2942683 Procurement Buyer: Kayley Doll MD Epithelial cells LM Ql (Urine sed) None Normal 0-25 [facility] Comment on above: Performed By: #### L IPR #### [address] [address] Procurement Buyer: Jersey Dahl MD #### CDP, CP #### [address] [place] [address] Procurement Buyer: Kayley Doll MD Urine RBC's None Normal 0-2 [facility] Comment on above: Performed By: #### L IPR #### [address] [address] Procurement Buyer: Jersey Dahl MD #### CDP, CP #### [address] [place] [phone] Procurement Buyer: Kayley Doll MD Urine WBC's 0 TO 2 Normal 0-5 [facility] Comment on above: Performed By: #### L IPR #### [address] [address] Procurement Buyer: Jersey Dahl MD #### CDP, CP #### [facility] [address] [place] [address] [place] [address] Procurement Buyer: Kayley Doll MD Lipid Panelon 10-05-2022 Cholesterol [Mass/Vol] 199 mg/dL NINF - 200 mg/dL [facility] Comment on above: Cholesterol Guidelines: <200 Desirable 200-240 Borderline >240 Undesirable Cholesterol in HDL [Mass/Vol] 107 mg/dL 40 - PINF mg/dL [facility] Comment on above: HDL Guidelines: <40 Undesirable 40-59 Borderline >59 Desirable Cholesterol in LDL [Mass/Vol] 73 mg/dL 0 - 130 mg/dL [facility] Comment on above: LDL Guidelines: <100 Desirable 100-129 Near to/above Desirable 130-159 Borderline >159 Undesirable Direct (measured) LDL and calculated LDL are not interchangeable tests. Cholesterol.total/Cho lesterol in HDL [Mass ratio] 1.9 {ratio} NINF - 5 [facility] Triglyceride [Mass/Vol] 93 mg/dL NINF - 150 mg/dL [facility] Comment on above: Triglyceride Guidelines: <150 Desirable 150-199 Borderline 200-499 High >499 Very high Based on AHA Guidelines for fasting triglyceride, March 2012. [facility] Lipid Profileon 10-05-2022 Cholesterol [Mass/Vol] 199 mg/dL Normal <200 [facility] Comment on above: Result Comment: Cholesterol Guidelines: <200 Desirable 200-240 Borderline >240 Undesirable Performed By: #### L IPR #### [address] [id number] Procurement Buyer: Jersey Dahl MD #### CDP, CP #### [facility] [address] [place] [phone] Procurement Buyer: Kayley Doll MD Cholesterol in HDL [Mass/Vol] 107 mg/dL Normal >40 [facility] Comment on above: Result Comment: HDL Guidelines: <40 Undesirable 40-59 Borderline >59 Desirable Performed By: #### L IPR #### [address] [id number] Procurement Buyer: Jersey Dahl MD #### CDP, CP #### [facility] [address] [place] [address] Procurement Buyer: Kayley Doll MD Cholesterol in LDL [Mass/Vol] 73 mg/dL Normal 0-130 [facility] Comment on above: Result Comment: LDL Guidelines: <100 Desirable 100-129 Near to/above Desirable 130-159 Borderline >159 Undesirable Direct (measured) LDL and calculated LDL are not interchangeable tests. Performed By: #### L IPR #### [facility] [address] [place] [address] Procurement Buyer: Jersey Dahl MD #### CDP, CP #### [facility] [address] [place] [address] Dr[address] [place], [place] 2543883 Procurement Buyer: Kayley Doll MD Cholesterol.total/Cho lesterol in HDL [Mass ratio] 1.9 {ratio} Normal <5 [facility] Comment on above: Performed By: #### L IPR #### [address] [place] [address] Procurement Buyer: Jersey Dahl MD #### CDP, CP #### [facility] [address] [place] [address] Dr. [place], [place] [address] Procurement Buyer: Kayley Doll MD Triglyceride [Mass/Vol] 93 mg/dL Normal <150 [facility] Comment on above: Result Comment: Triglyceride Guidelines: <150 Desirable 150-199 Borderline 200-499 High >499 Very high Based on AHA Guidelines for fasting triglyceride, March 2012. Performed By: #### L IPR #### [address] [place] [address] Procurement Buyer: Jersey Dahl MD #### CDP, CP #### [facility] [address] [place] [address] [place] [address] Procurement Buyer: Kayley Doll MD CBC with Auto Differentialon 10-04-2022 Absolute Eos # 0.14 [facility] Absolute Immature Granulocyte [facility] Absolute Lymph # 0.95 Low [facility] Absolute Tensas # 0.50 [facility] Basophils (Bld) [#/Vol] 0.03 10*3/uL [facility] Basophils/100 WBC (Bld) 1 % 0 - 2 % [facility] Eosinophils/100 WBC (Bld) 2 % 1 - 4 % [facility] Hematocrit (Bld) [Volume fraction] 32.9 % Low 36.3 - 47.1 % [facility] Hemoglobin (Bld) [Mass/Vol] 10.5 g/dL Low 11.9 - 15.1 g/dL [facility] Immature granulocytes/100 WBC (Bld) 0 % 0 [facility] Interpretation and review of laboratory results Abnormal [facility] Lymphocytes/100 WBC (Bld) 15 % Low 24 - 43 % [facility] MCH (RBC) [Entitic mass] 31.3 pg 25.2 - 33.5 pg [facility] MCHC (RBC) [Mass/Vol] 31.9 g/dL 28.4 - 34.8 g/ dL [facility] MCV (RBC) [Entitic vol] 97.9 fL 82.6 - 102.9 fL [facility] Monocytes/100 WBC (Bld) 8 % 3 - 12 % [facility] NRBC Automated 0.0 0.0 per 100 WBC [facility] Platelet distribution width (Bld) [Ratio] 15.6 % High 11.8 - 14.4 % [facility] Platelet mean volume (Bld) [Entitic vol] 9.7 fL 8.1 - 13.5 fL [facility] Platelets (Bld) [#/Vol] 148 10*3/uL [facility] RBC (Bld) [#/Vol] 3.36 10*6/uL Low 3.95 - 5.11 m/uL [facility] Segmented neutrophils/100 WBC (Bld) 74 % High 36 - 65 % [facility] Segs Absolute 4.83 [facility] WBC (Bld) [#/Vol] 6.5 10*3/uL [facility] CBC with Diffon 10-04-2022 Abs. Basophil 0.03 k/uL Normal 0.00-0.20 [facility] Comment on above: Performed By: #### L IPR #### [facility] [address] [place], [place] [phone] Procurement Buyer: Jersey Dahl MD #### CDPSARTHAK #### [facility] [address] [place] [address] [place] [address] Procurement Buyer: Kayley Doll MD Abs.Imm.Granulocyte <0.03 Normal 0.00-0.30 [facility] Comment on above: Performed By: #### L IPR #### [address] [address] Procurement Buyer: Jersey Dahl MD #### CDP, CP #### [address] [place] [address] Procurement Buyer: Kayley Doll MD Abs.Neutrophil (Seg) 4.83 k/uL Normal 1.50-8.10 [facility] Comment on above: Performed By: #### L IPR #### [place] [address] Procurement Buyer: Jersey Dahl MD #### CDP, CP #### [address] [place] [address] Procurement Buyer: Kayley Doll MD Basophils/100 WBC (Bld) 1 % Normal 0-2 [facility] Comment on above: Performed By: #### L IPR #### [place] [address] Procurement Buyer: Jersey Dahl MD #### CDP, CP #### [address] [place] [address] Procurement Buyer: Kayley Doll MD Eosinophils (Bld) [#/Vol] 0.14 10*3/uL Normal 0.00-0.44 [facility] Comment on above: Performed By: #### L IPR #### [address] [address] Procurement Buyer: Jersey Dahl MD #### CDP, CP #### [address] [place] [phone] Procurement Buyer: Kayley Doll MD Eosinophils/100 WBC (Bld) 2 % Normal 1-4 [facility] Comment on above: Performed By: #### L IPR #### [address] [address] Procurement Buyer: Jersey Dahl MD #### CDP, CP #### [facility] [address] [place] [address] [place] [address] Procurement Buyer: Kayley Doll MD Erythrocyte distribution width (RBC) [Ratio] 15.6 % High 11.8-14.4 [facility] Comment on above: Performed By: #### L IPR #### [address] [address] Procurement Buyer: Jersey Dahl MD #### CDP, CP #### [address] [place] [phone] Procurement Buyer: Kayley Doll MD Hematocrit (Bld) [Volume fraction] 32.9 % Low 36.3-47.1 [facility] Comment on above: Performed By: #### L IPR #### [address] [address] Procurement Buyer: Jersey Dahl MD #### CDP, CP #### [address] [address] Procurement Buyer: Kayley Doll MD Hemoglobin (Bld) [Mass/Vol] 10.5 g/dL Low 11.9-15.1 [facility] Comment on above: Performed By: #### L IPR #### [address] [address] Procurement Buyer: Jersey Dahl MD #### CDP, CP #### [address] [place], [place] [phone] Procurement Buyer: Kayley Doll MD Immature granulocytes/100 WBC (Bld) 0 % Normal 0 [facility] Comment on above: Performed By: #### L IPR #### [address] [place] [address] Procurement Buyer: Jersey Dahl MD #### CDP, CP #### [facility] [address] [place], [place] [phone] Procurement Buyer: Kayley Doll MD Lymphocytes (Bld) [#/Vol] 0.95 10*3/uL Low 1.10-3.70 [facility] Comment on above: Performed By: #### L IPR #### [address] [address] Procurement Buyer: Jersey Dahl MD #### CDP, CP #### [address] [place], [place] [phone] Procurement Buyer: Kayley Doll MD Lymphocytes/100 WBC (Bld) 15 % Low 24-43 [facility] Comment on above: Performed By: #### L IPR #### [address] [place] [address] Procurement Buyer: Jersey Dahl MD #### CDP, CP #### [facility] [address] [place] [address] Dr. [place], [place] [phone] Procurement Buyer: Kayley Doll MD MCH (RBC) [Entitic mass] 31.3 pg Normal 25.2-33.5 [facility] Comment on above: Performed By: #### L IPR #### [facility] [address] [place] [address] Procurement Buyer: Jersey Dahl MD #### CDP, CP #### [address] [place], [place] [phone] Procurement Buyer: Kayley Doll MD MCHC (RBC) [Mass/Vol] 31.9 g/dL Normal 28.4-34.8 [facility] Comment on above: Performed By: #### L IPR #### [address] [address] Procurement Buyer: Jersey Dahl MD #### CDP, CP #### [address] [address] Procurement Buyer: Kayley Doll MD MCV (RBC) [Entitic vol] 97.9 fL Normal 82.6-102.9 [facility] Comment on above: Performed By: #### L IPR #### [address] [address] Procurement Buyer: Jersey Dahl MD #### CDP, CP #### [address] [place] [phone] Procurement Buyer: Kayley Doll MD Monocytes (Bld) [#/Vol] 0.50 10*3/uL Normal 0.10-1.20 [facility] Comment on above: Performed By: #### L IPR #### [address] [address] Procurement Buyer: Jersey Dahl MD #### CDP, CP #### [address] [place], [place] 9176583 Procurement Buyer: Kayley Doll MD Monocytes/100 WBC (Bld) 8 % Normal 3-12 [facility] Comment on above: Performed By: #### L IPR #### [address] [address] Procurement Buyer: Jersey Dahl MD #### CDP, CP #### [address] [place] [address] Procurement Buyer: Kayley Doll MD Neutrophil (Seg) 74 % High 36-65 [facility] Comment on above: Performed By: #### L IPR #### [address] [address] Procurement Buyer: Jersey Dahl MD #### CDP, CP #### [facility] [address] [place], [place] [phone] Procurement Buyer: Kayley Doll MD NRBC Automated 0.0 per 100 WBC Normal 0.0 [facility] Comment on above: Performed By: #### L IPR #### [address] [address] Procurement Buyer: Jersey Dahl MD #### CDP, CP #### [facility] [address] [place], [place] 6707583 Procurement Buyer: Kayley Doll MD Platelet mean volume (Bld) [Entitic vol] 9.7 fL Normal 8.1-13.5 [facility] Comment on above: Performed By: #### L IPR #### [address] [address] Procurement Buyer: Jersey Dahl MD #### CDP, CP #### [facility] [address] [place] [address] [place], [place] [phone] Procurement Buyer: Kayley Doll MD Platelets (Bld) [#/Vol] 148 10*3/uL Normal 138-453 [facility] Comment on above: Performed By: #### L IPR #### [address] [address] Procurement Buyer: Jersey Dahl MD #### CDP, CP #### [facility] [address] [place] [address] [place], [place] [phone] Procurement Buyer: Kayley Doll MD RBC (Bld) [#/Vol] 3.36 10*6/uL Low 3.95-5.11 [facility] Comment on above: Performed By: #### L IPR #### [address] [address] Procurement Buyer: Jersey Dahl MD #### CDP, CP #### [facility] [address] [place] [address] Procurement Buyer: Kayley Doll MD WBC (Bld) [#/Vol] 6.5 10*3/uL Normal 3.5-11.3 [facility] Comment on above: Performed By: #### L IPR #### [address] [address] Procurement Buyer: Jersey Dahl MD #### CDP, CP #### [address] [place], [place] [phone] Procurement Buyer: Kayley Doll MD Comp Metabolic Profon 2022 Albumin [Mass/Vol] 3.9 g/dL Normal 3.5-5.2 [facility] Comment on above: Performed By: #### L IPR #### [address] [address] Procurement Buyer: Jersey Dahl MD #### CDP, CP #### [address] [place], [place] [phone] Procurement Buyer: Kayley Doll MD Albumin/Glob Ratio 1.1 Normal 1.0-2.5 [facility] Comment on above: Performed By: #### L IPR #### [address] [address] Procurement Buyer: Jersey Dahl MD #### CDP, CP #### [address] [place], [place] [phone] Procurement Buyer: Kayley Doll MD Alkaline Phos 99 U/L Normal 35-104 [facility] Comment on above: Performed By: #### L IPR #### [address] [address] Procurement Buyer: Jersey Dahl MD #### CDP, CP #### [address] [place] [address] Procurement Buyer: Kayley Doll MD ALT [Catalytic activity/Vol] 27 U/L Normal 5-33 [facility] Comment on above: Performed By: #### L IPR #### [facility] [address] [place] [address] Procurement Buyer: Jersey Dahl MD #### CDP, CP #### [facility] [address] [place], [place] 2568683 Procurement Buyer: Kayley Doll MD Anion gap [Moles/Vol] 10 mmol/L Normal 9-17 [facility] Comment on above: Performed By: #### L IPR #### [address] [address] Procurement Buyer: Jersey Dahl MD #### CDP, CP #### [address] [place] [phone] Procurement Buyer: Kayley Doll MD AST [Catalytic activity/Vol] 21 U/L Normal <32 [facility] Comment on above: Performed By: #### L IPR #### [address] [address] Procurement Buyer: Jersey Dahl MD #### CDP, CP #### [address] [place], [place] 6439583 Procurement Buyer: Kayley Doll MD Bilirubin [Mass/Vol] 1.0 mg/dL Normal 0.3-1.2 [facility] Comment on above: Performed By: #### L IPR #### [address] [address] Procurement Buyer: Jersey Dahl MD #### CDP, CP #### [facility] [address] [place] [address] Dr. [place], [place] [phone] Procurement Buyer: Kayley Doll MD BUN/CRE Ratio 40 High 9-20 [facility] Comment on above: Performed By: #### L IPR #### [address] [address] Procurement Buyer: Jersey Dahl MD #### CDP, CP #### [facility] [address] [place], [place] 8484883 Procurement Buyer: Kayley Doll MD Calcium [Mass/Vol] 10.9 mg/dL High 8.6-10.4 [facility] Comment on above: Performed By: #### L IPR #### [address] [address] Procurement Buyer: Jersey Dahl MD #### CDP, CP #### [facility] [address] [place] [address] Dr. [place], [place] 0545883 Procurement Buyer: Kayley Doll MD Chloride [Moles/Vol] 110 mmol/L High 98-107 [facility] Comment on above: Performed By: #### L IPR #### [address] [address] Procurement Buyer: Jersey Dahl MD #### CDP, CP #### [facility] [address] [place] [address] Dr. [place], [place] 1938383 Procurement Buyer: Kayley Doll MD CO2 [Moles/Vol] 30 mmol/L Normal 20-31 [facility] Comment on above: Performed By: #### L IPR #### [address] [address] Procurement Buyer: Jersey Dahl MD #### CDP, CP #### [facility] [address] [place] [address] Dr. [place], [place] 0595683 Procurement Buyer: Kayley Doll MD Creatinine [Mass/Vol] 0.99 mg/dL High 0.50-0.90 [facility] Comment on above: Performed By: #### L IPR #### [address] [address] Procurement Buyer: Jersey Dahl MD #### CDP, CP #### [address] [place] [address] Procurement Buyer: Kayley Doll MD GFR/1.73 sq M.predicted among non-blacks MDRD (S/P/Bld) [Vol rate/Area] mL/min/{1.73_m2} Normal >60 [facility] Comment on above: Result Comment: These results [...] secretion. Performed By: #### L IPR #### [address] [address] Procurement Buyer: Jersey Dahl MD #### CDP, CP #### [address] [address] Procurement Buyer: Kayley Doll MD Glucose [Mass/Vol] 80 mg/dL Normal 70-99 [facility] Comment on above: Performed By: #### L IPR #### [address] [address] Procurement Buyer: Jersey Dahl MD #### CDP, CP #### [address] [place] [address] Procurement Buyer: Kayley Doll MD Potassium [Moles/Vol] 3.5 mmol/L Low 3.7-5.3 [facility] Comment on above: Performed By: #### L IPR #### [address] [address] Procurement Buyer: Jersey Dahl MD #### CDP, CP #### [address] [place], [place] 0826083 Procurement Buyer: Kayley Doll MD Protein [Mass/Vol] 7.4 g/dL Normal 6.4-8.3 [facility] Comment on above: Performed By: #### L IPR #### [address] [place] [address] Procurement Buyer: Jersey Dahl MD #### CDP, CP #### [address] [place], [place] 4907383 Procurement Buyer: Kayley Doll MD Sodium [Moles/Vol] 150 mmol/L High 135-144 [facility] Comment on above: Performed By: #### L IPR #### [address] [address] Procurement Buyer: Jersey Dahl MD #### CDP, CP #### [address] [place], [place] 4315683 Procurement Buyer: Kaylye Doll MD Urea nitrogen [Mass/Vol] 40 mg/dL High 8-23 [facility] Comment on above: Performed By: #### L IPR #### [address] [address] Procurement Buyer: Jersey Dahl MD #### CDP, CP #### [address] [place], [place] 5721783 Procurement Buyer: Kayley Doll MD Comprehensive Metabolic Pane [facility] 10-04-2022 Albumin [Mass/Vol] 3.9 g/dL 3.5 - 5.2 g/dL [facility] Albumin/Globulin [Mass ratio] 1.1 {ratio} 1.0 - 2.5 [facility] ALP [Catalytic activity/Vol] 99 U/L 35 - 104 U/L [facility] ALT [Catalytic activity/Vol] 27 U/L 5 - 33 U/L [facility] Anion gap [Moles/Vol] 10 mmol/L 9 - 17 mmol/L [facility] AST [Catalytic activity/Vol] 21 U/L NINF - 32 U/L [facility] Bilirubin [Mass/Vol] 1.0 mg/dL 0.3 - 1.2 mg/dL [facility] Calcium [Mass/Vol] 10.9 mg/dL High 8.6 - 10.4 mg/dL [facility] Chloride [Moles/Vol] 110 mmol/L High 98 - 107 mmol/L [facility] CO2 [Moles/Vol] 30 mmol/L 20 - 31 mmol/L [facility] Creatinine [Mass/Vol] 0.99 mg/dL High 0.50 - 0.90 mg /dL [facility] GFR/1.73 sq M.predicted MDRD (S/P/Bld) [Vol rate/Area] - PINF [facility] Comment on above: These results are not [...] [Mass/Vol] 80 mg/dL 70 - 99 mg/dL [facility] Interpretation and review of laboratory results Abnormal [facility] Potassium [Moles/Vol] 3.5 mmol/L Low 3.7 - 5.3 mmol /L [facility] Protein [Mass/Vol] 7.4 g/dL 6.4 - 8.3 g/dL [facility] Sodium [Moles/Vol] 150 mmol/L High 135 - 144 mmol/L [facility] Urea nitrogen [Mass/Vol] 40 mg/dL High 8 - 23 mg/dL [facility] Urea nitrogen/Creatinine (Bld) [Mass ratio] 40 High 9 - 20 [facility] Thyroxine T4on 10-04-2022 T4 [Mass/Vol] 10.7 ug/dL Normal 4.5-10.9 [facility] Comment on above: Performed By: #### L IPR #### [address] [place] [address] Procurement Buyer: Jersey Dahl MD #### CDP, CP #### [facility] [address] [place] [address] [place] [address] Procurement Buyer: Kayley Doll MD Triiodothyronine T3on 2022 Triiodothyronine T3 63 ng/dL Normal 60-181 [facility] Comment on above: Performed By: #### L IPR #### [address] [address] Procurement Buyer: Jersey Dahl MD #### CDP, CP #### [address] [address] Procurement Buyer: Kayley Doll MD T3, Freeon 10-03-2022 Free T3 [Mass/Vol] 1.96 pg/mL Low 2.02-4.43 [facility] Comment on above: Performed By: #### L IPR #### [address] [address] Procurement Buyer: Jersey Dahl MD #### CDP, CP #### [address] [address] Procurement Buyer: Kayley Doll MD TSHon 10-03-2022 TSH Qn 0.39 m[IU]/L [facility] Thyroid Stim. Horm.on 2022 Thyroid Stim. Horm. 0.39 uIU/mL Normal 0.30-5.00 [facility] Comment on above: Performed By: #### T 4, FT4, T3, FT3 #### [address] [id number] Procurement Buyer: Jersey Dahl MD #### TSH #### [facility] [address] [place] [address] [place] [address] Procurement Buyer: Kayley Doll MD Thyroxine, Freeon 10-03-2022 Thyroxine, Free 1.5 ng/dL Normal 0.9-1.7 [facility] Comment on above: Performed By: #### L IPR #### [facility] [address] [place], [place] [phone] Procurement Buyer: Jersey Dahl MD #### CDP, CP #### [facility] [address] [place] [address] Procurement Buyer: Kayley Doll MD ACETAMINOPHENon 09-28-2022 Acetaminophen [Mass/Vol] ug/mL Critically low 10.0-30.0 [facility] Comment on above: Performed By: #### S ALYC, ACET, ETH ####[facility] [address] [address]Dr. Soniya Chi BNPon 09-28-2022 Natriuretic peptide B (Bld) [Mass/Vol] 70.0 pg/mL Normal <=900.0 [facility] Comment on above: Performed By: #### T SH, CMP, BNP, CMADM ####[facility] [address] [address]Dr. Soniya Chi CARDIAC HAYDER ADMITon 023 CK [Catalytic activity/Vol] 19 U/L Critically low 26-192 [facility] Comment on above: Performed By: #### T SH, CMP, BNP, CMADM ####[facility] [address] [address]Dr. Soniya Chi CK.MB [Mass/Vol] 1.97 ng/mL Normal <=3.60 [facility] Comment on above: Performed By: #### T SH, CMP, BNP, CMADM ####[facility] [address] [address]Dr. juan Alon HSTROP 16.3 pg/mL Normal 4.0-51.3 [facility] Comment on above: Result Comment: CUT- OFF POINTS HAVE BEEN ESTABLISHED BASED ON THE FOURTH UNIVERSAL DEFINITIONS OF MYOCARDIALINFARCTION. THE UPPER REFERENCE LIMIT (URL) OF TROPONIN, DEFINED THE 99TH PERCENTILE OFcTnI DISTRIBUTION IN A REFERENCE POPULATION, HAS BEEN CONFIRMED THE DECISION THRESHOLDFOR MT DIAGNOSIS. Performed By: #### T SH, CMP, BNP, CMADM ####[facility] [address] [address]Dr. Soniya Chi PALMIRA 68 ng/mL Normal 9-82 [facility] Comment on above: Performed By: #### T SH, CMP, BNP, CMADM ####[facility] [address] [address]Dr. Gypsyjuan Chi CBC AUTO DIFFon 09-28-2022 BASO # 0.0 103/ul Normal 0.0-0.1 [facility] Comment on above: Performed By: #### C BC ####[facility] [address] [place], [place] [address]Dr. Soniya Chi Basophils/100 WBC (Bld) 0.2 % Normal 0.2-2.0 [facility] Comment on above: Performed By: #### C BC ####[facility] [address] [place], [place] [address]Dr. Gypsyjuan Chi EO # 0.0 103/ul Normal 0.0-0.7 [facility] Comment on above: Performed By: #### C BC ####[facility] [address] [place], [place] [address]Dr. Soniya Chi Eosinophils/100 WBC (Bld) 0.3 % Critically low 0.9-7.0 [facility] Comment on above: Performed By: #### C BC ####[facility] [address] [place], [place] [address]Dr. Soniya Chi Erythrocyte distribution width (RBC) [Ratio] 15.8 % Critically high 11.0-15.0 [facility] Comment on above: Performed By: #### C BC ####[facility] [address] [place], [place] [address]Dr. Soniya Chi Hematocrit (Bld) [Volume fraction] 30.1 % Critically low 36.0-48.0 [facility] Comment on above: Performed By: #### C BC ####[facility] [address] [place] [address]Dr. Soniya Chi Hemoglobin (Bld) [Mass/Vol] 9.9 g/dL Critically low 12.0-16.0 [facility] Comment on above: Performed By: #### C BC ####[facility] [address] [place] [address]Dr. Soniya Chi IG # 0.02 10e3/ul Normal 0.00-0.03 [facility] Comment on above: Performed By: #### C BC ####[facility] [address] [place] [address]Dr. Soniya Chi IG % 0.2 % Normal 0.0-0.5 [facility] Comment on above: Performed By: #### C BC ####[facility] [address] [place] [address]Dr. Soniya Chi LYMPH # 0.5 103/ul Critically low 1.2-3.8 [facility] Comment on above: Performed By: #### C BC ####[facility] [address] [place] [address]78[address]Dr. Soniya Chi Lymphocytes/100 WBC (Bld) 5.2 % Critically low 20.5-60.0 [facility] Comment on above: Performed By: #### C BC ####[facility] [address] [place] [address]Dr. Soniya Chi MANUAL DIFF REQ NO Normal [facility] Comment on above: Performed By: #### C BC ####[facility] [address] [place] [address]78[address]Dr. Soniya Chi MCH (RBC) [Entitic mass] 31.2 pg Normal 26.7-34.0 [facility] Comment on above: Performed By: #### C BC ####[facility] [address] [place] [address]78[address]Dr. Soniya Chi MCHC (RBC) [Mass/Vol] 32.9 g/dL Normal 29.9-35.2 [facility] [facility] Comment on above: Performed By: #### C BC ####[facility] [address]ju[address]geo[address] [place] [id number]. Soniya Chi MCV (RBC) [Entitic vol] 95.0 fL Normal 81.0-99.0 [facility] Comment on above: Performed By: #### C BC ####[facility] Iwczxfvqgq5668 [place] [id number]. Soniya Chi MONO # 0.5 103/ul Normal 0.3-0.8 The [facility] Comment on above: Performed By: #### C BC ####[facility] Zmdnegvjyg9775 [place] [phone]. Soniya Chi Monocytes/100 WBC (Bld) 4.6 % Normal 1.7-12.0 The [facility] Comment on above: Performed By: #### C BC ####[facility] Pnvaknzcpx[address] [place], [place] [address]Dr. Soniya Chi NEUT # 8.9 103/ul Critically high 1.4-6.5 The [facility] Comment on above: Performed By: #### C BC ####[facility] Ilmgqkxejp[address] [place], [place] [address]Dr. Soniya Chi Neutrophils/100 WBC (Bld) 89.5 % Critically high 43.0-75.0 The [facility] Comment on above: Performed By: #### C BC ####[facility] Jgufxtiqop[address] [place], [place] [id number]. Soniya Chi Platelet mean volume (Bld) [Entitic vol] 9.9 fL Normal 9.5-13.5 The [facility] Comment on above: Performed By: #### C BC ####[facility] Q[address]js[address]uljcc[address] [place], [place] [address]Dr. Soniya Chi PLT 163 103/ul Normal 150-450 The [facility] Comment on above: Performed By: #### C BC ####[facility] Gmsszocujr0[address] [place] [phone]. Soniya Chi RBC 3.17 106/ul Critically low 4.20-5.40 The [facility] Comment on above: Performed By: #### C BC ####[facility] Wxqbuokshn9[address] [place], [place] [address]Vo. Soniya Chi WBC 9.9 103/ul Normal 4.0-11.0 [facility] Comment on above: Performed By: #### C BC ####[facility] Vddbcozkpr9418 [place], [place] [address]j. [address] CT HEAD WO CONon 09-28-2022 CT HEAD WO CON Normal The [facility] CULTURE BLOODon 09-28-2022 Microscopic examination of blood, culture Culture Observations: NO GROWTH AT 5 DAYS. Normal The [facility] Comment on above: Performed By: #### B LDCX2 ####[facility] Fjynxpmfut6[address] [place] [phone]. Soniya Chi Microscopic examination of blood, culture Culture Observations: NO GROWTH AT 5 DAYS. Normal [facility] Comment on above: Performed By: #### B LDCX1 ####[facility] Fvchvoixgs6034 [place] [phone]. Soniya Chi Covid-19 PCR (CVDTB)on 09-01 SARS-CoV-2 (COVID-19) RNA DORIAN+probe Ql (Unsp spec) Not detected Normal NOT DETECTED The [facility] Comment on above: Result Comment: This test is not yet approved or cleared by the [place] FDA. When there are no FDA-approved or cleared tests available, and other criteria are met, FDA can make tests available under an emergency access mechanism called an Emergency Use Authorization (EUA). The EUA for this test is supported by the [place] of Health and Human Service's (HHS's) declaration [...] with SARS-CoV-2. Performed By: #### C VDTBH ####[facility] Vqyhdnodko9[address] [place] [address]Dr. Soniya Chi DRUG SCREEN RAPID (URINE)on 09-28-2022 AMP Negative Normal NEGATIVE The [facility] Comment on above: Performed By: #### D RUGRPD ####[facility] Ytrqkebbrf7826 [place] [address]Dr. Soniya Chi BAR Negative Normal NEGATIVE The [facility] Comment on above: Performed By: #### D RUGRPD ####[facility] Hdsfcihocx9860 [place] [address]Dr. Soniya Chi BUP Negative Normal NEGATIVE The [facility] Comment on above: Performed By: #### D RUGRPD ####[facility] Aoztwllfpl[address] [place], [place] [address]Dr. Soniya Chi BZO Negative Normal NEGATIVE The [facility] Comment on above: Performed By: #### D RUGRPD ####[facility] Najulwhine[address] [place], [place] [address]Dr. Soniya Chi MARIAH Negative Normal NEGATIVE The [facility] Comment on above: Performed By: #### D RUGRPD ####[facility] Mosjogzksm99[address] [place], [place] [address]Dr. Soniya Chi CUT-OFFS SEE BELOW Normal The [facility] Comment on above: Result Comment: [...] 300 ng/mL Performed By: #### D RUGRPD ####[facility] Jqpqpauyzq[address] [place], [place] [address]Dr. Soniya Chi DRUG CUT HEADER DRUG CLASS TEST SYSTEM CUT-OFF CONCENTRATIONS ARE FOLLOWS: Normal The [facility] Comment on above: Performed By: #### D RUGRPD ####[facility] Emzezzsbmz55[address] [place] [phone]. Soniya Chi mAMP Negative Normal NEGATIVE The [facility] Comment on above: Performed By: #### D RUGRPD ####[facility] Wxcacowcbj16[address] [place] [address]Dr. Soniya Chi MTD Negative Normal NEGATIVE The [facility] Comment on above: Performed By: #### D RUGRPD ####[facility] Crucgwdnje7986 [place] [address]Dr. Soniya Chi OPI Negative Normal NEGATIVE The [facility] Comment on above: Performed By: #### D RUGRPD ####[facility] Xltjxrjewr[address] [place], [place] [address]Dr. Soniya Chi OXY Negative Normal NEGATIVE The [facility] Comment on above: Performed By: #### D RUGRPD ####[facility] Pvijoeeypi5[address] [place] [address]Dr. Soniya Chi PCP Negative Normal NEGATIVE The [facility] Comment on above: Performed By: #### D RUGRPD ####[facility] Fjvgvqypux[address] [place], [place] [address]Dr. Soniya Chi PPX Negative Normal NEGATIVE The [facility] Comment on above: Performed By: #### D RUGRPD ####[facility] Zhliztkuwl[address] [place], [place] [address]Dr. Soniya Chi TCA Negative Normal NEGATIVE The [facility] Comment on above: Performed By: #### D RUGRPD ####[facility] Vkimqdogtu4326 [place] [address]Dr. Soniya Chi THC Negative Normal NEGATIVE The [facility] Comment on above: Performed By: #### D RUGRPD ####[facility] Wnpkmbnyjn[address] [place], [place] [address]Dr. Soniya Chi ER URINE PROFILEon 3 Bilirubin Ql (U) Negative Normal NEGATIVE The [facility] [place] [facility] Comment on above: Performed By: #### E RUR ####[facility] Huszlsnwos7[address] [place] [address]Dr. Soniya Chi Clarity (U) CLEAR Normal CLEAR The [facility] Comment on above: Performed By: #### E RUR ####[facility] Ereqymvbwq47[address] [place], [place] [address]Dr. Soniya Chi Color (U) LT. YELLOW Normal YELLOW The [facility] Comment on above: Performed By: #### E RUR ####[facility] Iethoemaop[address] [place], [place] [address]Dr. Gypsyjuan Chi ERUAHD A micrscopic examination will be performed if indicated. Normal The [facility] Comment on above: Performed By: #### E RUR ####[facility] Jhcxexuvyl[address] [place], [place] [address]Dr. Soniya Chi Glucose Ql (U) Negative Normal NEGATIVE The [facility] Comment on above: Performed By: #### E RUR ####[facility] Pprhhapmwb192[address] [place], [place] [address]Dr. Soniya Chi Hemoglobin Ql (U) Negative Normal NEGATIVE [facility] Comment on above: Performed By: #### E RUR ####[facility] Nlwarvwxqr33[address] [place], [place] [address]Dr. Soniya Chi Ketones Ql (U) Negative Normal NEGATIVE The [facility] Comment on above: Performed By: #### E RUR ####[facility] Qfkidicerc960[address] [place], [place] [address]Dr. Soniya Chi LEUKOCYTES Negative Normal NEGATIVE [facility] Comment on above: Performed By: #### E RUR ####[facility] Wxfgrfqeon[address] [place], [place] [address]Dr. Gypsyjuan Chi Nitrite Ql (U) Negative Normal NEGATIVE The [facility] Comment on above: Performed By: #### E RUR ####[facility] Dhzgqxfdjh6818[address] [place], [place] [address]Dr. Gypsyjuan Chi pH (U) 5.0 [pH] Normal 5-9 The [facility] Comment on above: Performed By: #### E RUR ####[facility] Vyzofjzgkw25[address] [place] [address]Dr. Soniya Chi SPEC GRAVITY 1.025 Normal 1.005-<=1.025 The [facility] Comment on above: Performed By: #### E RUR ####[facility] Zbhsadjegs[address] [place], [place] [address]Dr. Soniya Chi UA PROTEIN Negative Normal NEGATIVE/ TRACE The [facility] Comment on above: Performed By: #### E RUR ####[facility] Ulazaccfdg67[address] [place], [place] [address]Dr. Soniya Chi UR MICRO IND NOT INDICATED Normal The [facility] Comment on above: Performed By: #### E RUR ####[facility] Prbsfvpjhn[address] [place], [place] [address]Dr. Soniya Chi Urobilinogen Qn (U) 0.2 {Casimiro'U}/dL Normal 0.2 - 1. 0 The [facility] Comment on above: Performed By: #### E RUR ####[facility] Kmurvedeqz[address] [place], [place] [address]Dr. Soniya Chi ETHANOL (BLD ALC)on 09-29-19 23 ALC NOTE NOTE: 80 mg/dl is the legal limit for a blood alcohol level Normal [facility] Comment on above: Performed By: #### S ALYC, ACET, ETH ####[facility] Dvbaerogmu6[address] [place], [place] [address]Dr. Soniya Chi Ethanol [Mass/Vol] mg/dL Normal [facility] Comment on above: Performed By: #### S ALYC, ACET, ETH ####[facility] Ppfqanjpuu[address] [place], [place] [address]Dr. Soniya Chi FREE T3on 09-28-2022 FREE T3 2.81 pg/mlL Normal 2.18-3.98 The [facility] Comment on above: Performed By: #### F T3 ####[facility] Fmqhydujoi[address] [place], [place] [address]Dr. Soniya Chi LACTATE/LACTIC ACIDon 2022 Lactate [Moles/Vol] 0.6 mmol/L Normal 0.4-2.0 [facility] Comment on above: Performed By: #### L ACT ####[facility] Erfanoscsh[address] [place] [address]Dr. Soniya Chi PROF 14(COMP METB)on 023 Albumin [Mass/Vol] 3.4 g/dL Normal 3.4-5.0 [facility] Comment on above: Performed By: #### T SH, CMP, BNP, CMADM ####[facility] Tpoobcydyq80[address] [place] [address]Dr. Soniya Chi Albumin/Globulin [Mass ratio] 0.9 {ratio} Normal [facility] Comment on above: Performed By: #### T SH, CMP, BNP, CMADM ####[facility] Pvfiqfymdo32[address] [place] [address]Dr. Soniya Chi ALP [Catalytic activity/Vol] 113 U/L Normal 46-116 [facility] Comment on above: Performed By: #### T SH, CMP, BNP, CMADM ####[facility] Ddvidfahhv4091 [place] [address]Dr. Soniya Chi ALT [Catalytic activity/Vol] 37 U/L Normal 14-59 [facility] Comment on above: Performed By: #### T SH, CMP, BNP, CMADM ####[facility] Hqegjgwsis8[address] [place] [address]Dr. Soniya Chi Anion gap [Moles/Vol] 11.6 mmol/L Normal [facility] Comment on above: Performed By: #### T SH, CMP, BNP, CMADM ####[facility] Vesefhicpg8764 [place] [address]Dr. Soniya Chi AST [Catalytic activity/Vol] 19 U/L Normal 15-37 [facility] Comment on above: Performed By: #### T SH, CMP, BNP, CMADM ####[facility] Xtcziniobg0637 [place] [address]Dr. Soniya Chi Bilirubin [Mass/Vol] 0.4 mg/dL Normal 0.2-1.0 [facility] Comment on above: Performed By: #### T SH, CMP, BNP, CMADM ####[facility] Zzxaxvvqhe1494 [place] [address]Dr. Soniya Chi Calcium [Mass/Vol] 10.1 mg/dL Normal 8.5-10.1 [facility] Comment on above: Performed By: #### T SH, CMP, BNP, CMADM ####[facility] Zwkxqjyjjz2056 [place] [address]Dr. Soniya Chi Chloride [Moles/Vol] 107 mmol/L Normal 98-107 The [facility] Comment on above: Performed By: #### T SH, CMP, BNP, CMADM ####[facility] Xcllkdzwqg8276 [place] [address]Dr. Soniya Chi CO2 [Moles/Vol] 29.9 mmol/L Normal 21.0-32.[address] [facility] Comment on above: Performed By: #### T SH, CMP, BNP, CMADM ####[facility] Ealalmxaml[address] [place], [place] [address]Dr. Soniya Chi Creatinine [Mass/Vol] 1.11 mg/dL Critically high 0.55-1.02 [facility] Comment on above: Performed By: #### T SH, CMP, BNP, CMADM ####[facility] Vuuurglppa[address] [place], [place] [address]Dr. Soniya Chi EGFR-AF IRISH 59 mL/min/1.73m2 Critically low >=60 [facility] Comment on above: Performed By: #### T SH, CMP, BNP, CMADM ####[facility] Yxbpzsdoqy[address] [place], [place] [address]Dr. Soniya Chi EGFR-NON AF IRISH 49 mL/min/1.73m2 Critically low >=60 The [facility] Comment on above: Performed By: #### T SH, CMP, BNP, CMADM ####[facility] Yxwjjidngf27[address] [place] [address]Dr. Soniya Chi Globulin (S) [Mass/Vol] 4.0 g/dL Normal [facility] Comment on above: Performed By: #### T SH, CMP, BNP, CMADM ####[facility] Qxwdfveczx1187 [place] [address]Dr. Soniya Chi Glucose [Mass/Vol] 89 mg/dL Normal 74-106 The [facility] Comment on above: Performed By: #### T SH, CMP, BNP, CMADM ####[facility] Hkxcbfudwm3610 [place] [address]Dr. Soniya Chi Potassium [Moles/Vol] 4.5 mmol/L Normal 3.5-5.1 The [facility] Comment on above: Performed By: #### T SH, CMP, BNP, CMADM ####[facility] Luvtsqfbsd4292 [place] [address]Dr. Soniya Chi Protein [Mass/Vol] 7.4 g/dL Normal 6.4-8.2 The [facility] Comment on above: Performed By: #### T SH, CMP, BNP, CMADM ####[facility] Nflzwjudus6347 [place] [address]Dr. Soniya Chi Sodium [Moles/Vol] 144 mmol/L Normal 136-145 The [facility] Comment on above: Performed By: #### T SH, CMP, BNP, CMADM ####[facility] Kaiyytfcut7694 [place] [address]Dr. Soniya Chi Urea nitrogen [Mass/Vol] 19.0 mg/dL Critically high 7.0-18.0 The [facility] Comment on above: Performed By: #### T SH, CMP, BNP, CMADM ####[facility] Gjilwqavnt8[address] [place] [address]Dr. Soniya Chi Urea nitrogen/Creatinine [Mass ratio] 17.1 mg/mg Normal The [facility] Comment on above: Performed By: #### T SH, CMP, BNP, CMADM ####[facility] Mxtgbcsjcv8276 [place] [address]Dr. Soniya Chi PROTIMEon 09-28-2022 INR Coag (PPP) [Relative time] 1.01 {INR} Normal The [facility] Comment on above: Performed By: #### P T, PTT ####[facility] Tbbyudtfrl8764 [place] [address]Dr. Soniya Chi INR GUIDELINES SEE BELOW Normal The [facility] Comment on above: Result Comment: SHARON RED INR: 2.0 - 3.0 CONDITIONS NOT LISTED BELOW 2.5 - 3.5 FOR PROSTHETIC HEART VALVE REPLACEMENT 2.5 - 3.5 RECURRENT THROMBOSIS Performed By: #### P T, PTT ####[facility] Yvdrkjcfzo[address] [place], [place] [address]Dr. Soniya Chi PT Coag (PPP) [Time] 10.7 s Normal 9.0-11.6 The [facility] Comment on above: Performed By: #### P T, PTT ####[facility] Gwoojpulpx101[address] [place] [address]Dr. Soniya Chi PTTon 09-28-2022 aPTT Coag (Bld) [Time] 36.7 s Critically high 22.3-36.2 The [facility] Comment on above: Performed By: #### P T, PTT ####[facility] Ysgavkngbe[address] [place], [place] [address]Dr. Soniya Chi SALICYLATEon 09-28-2022 SALICYLATE <2.8 Normal <=19.9 The [facility] Comment on above: Performed By: #### S ALYC, ACET, ETH ####[facility] Bniahhohwm9669 [place] [address]Dr. Soniya Chi SYMPTOMATIC COVID-19 ANTIGEN on 09-28-2022 EUA Statement SEE BELOW Normal The [facility] Comment on above: Result Comment: This [...] revoked sooner. Performed By: #### C VDAGS ####[facility] Tptinmnyfm4165 [place] [address]Dr. Soniya Chi SARS-CoV-2 (COVID-19) RNA DORIAN+probe Ql (Unsp spec) Negative Normal NEGATIVE The [facility] Comment on above: Performed By: #### C VDAGS ####[facility] Orlxjhalrs4571 [place] [address]Dr. Soniya Chi T4on 09-28-2022 T4 [Mass/Vol] 13.20 ug/dL Normal 4.80-13.90 The [facility] Comment on above: Performed By: #### T 4 ####[facility] Oketmdusny[address] [place], [place] [address]Dr. Soniya Chi TSHon 09-28-2022 TSH 0.188 uIU/mL Critically low 0.358-3.740 The [facility] Comment on above: Performed By: #### T SH, CMP, BNP, CMADM ####[facility] Eutoywpyxh[address] [place], [place] [address]Dr. Soniya Chi XR CHEST 1 Von 09-28-2022 XR CHEST 1 V Normal The [facility] CBC AUTO DIFFon 09-16-2022 BASO # 0.0 103/ul Normal 0.0-0.1 [facility] Comment on above: Performed By: #### C BC ####[facility] Wvocfdaipr[address] [place], [place] [address]Dr. Soniya Chi Basophils/100 WBC (Bld) 0.4 % Normal 0.2-2.0 The [facility] Comment on above: Performed By: #### C BC ####[facility] Qncrojzxro10[address] [place], [place] [address]Dr. Soniya Chi EO # 0.1 103/ul Normal 0.0-0.7 The [facility] Comment on above: Performed By: #### C BC ####[facility] Qbjeohxogc[address] [place], [place] [address]Dr. Soniya Chi Eosinophils/100 WBC (Bld) 1.7 % Normal 0.9-7.0 [facility] Comment on above: Performed By: #### C BC ####[facility] Rwjclmeuns6713 [place] [address]Dr. Soniya Chi Erythrocyte distribution width (RBC) [Ratio] 15.9 % Critically high 11.0-15.0 [facility] Comment on above: Performed By: #### C BC ####[facility] Tfmpdfrqfl[address] [place], [place] [address]Dr. Gypsyjuan Chi Hematocrit (Bld) [Volume fraction] 30.6 % Critically low 36.0-48.0 [facility] Comment on above: Performed By: #### C BC ####[facility] Lxiikdvkam[address] [place], [place] [address]Dr. Soniya Chi Hemoglobin (Bld) [Mass/Vol] 9.9 g/dL Critically low 12.0-16.0 [facility] Comment on above: Performed By: #### C BC ####[facility] Kjaydmqrdg[address] [place], [place] [address]Dr. Soniya Chi IG # 0.01 10e3/ul Normal 0.00-0.03 The [facility] Comment on above: Performed By: #### C BC ####[facility] Jcghuafccp[address] [place], [place] [address]Dr. Soniya Chi IG % 0.2 % Normal 0.0-0.5 The [facility] Comment on above: Performed By: #### C BC ####[facility] Raiajsyear88[address] [place], [place] [address]Dr. Soniya Chi LYMPH # 1.2 103/ul Normal 1.2-3.8 The [facility] Comment on above: Performed By: #### C BC ####[facility] Igqmhrilta[address] [place], [place] [address]Dr. Soniya Chi Lymphocytes/100 WBC (Bld) 22.4 % Normal 20.5-60.0 The [facility] Comment on above: Performed By: #### C BC ####[facility] Puwsfjurlo[address] [place], [place] [address]Dr. Soniya Chi MANUAL DIFF REQ NO Normal [facility] Comment on above: Performed By: #### C BC ####[facility] Osmbzofiup8[address] [place] [address]Dr. Soniya Chi MCH (RBC) [Entitic mass] 30.9 pg Normal 26.7-34.0 [facility] Comment on above: Performed By: #### C BC ####[facility] Ulvrigzyqt0640 [place] [address]Dr. Soniya Chi MCHC (RBC) [Mass/Vol] 32.4 g/dL Normal 29.9-35.2 [facility] Comment on above: Performed By: #### C BC ####[facility] Lyxqrrmxxs[address] [place], [place] [address]Dr. Soniya Chi MCV (RBC) [Entitic vol] 95.6 fL Normal 81.0-99.0 [facility] Comment on above: Performed By: #### C BC ####[facility] Foorqzscvk[address] [place], [place] [address]DrKarolina Chi MONO # 0.4 103/ul Normal 0.3-0.8 The [facility] Comment on above: Performed By: #### C BC ####[facility] Ejorpnzmiw[address] [place], [place] [address]DrKarolina Chi Monocytes/100 WBC (Bld) 6.9 % Normal 1.7-12.0 The [facility] Comment on above: Performed By: #### C BC ####[facility] Siunozuszi[address] [place], [place] [address]DrKarolina Chi NEUT # 3.6 103/ul Normal 1.4-6.5 The [facility] Comment on above: Performed By: #### C BC ####[facility] Smxvgdujts[address] [place], [place] [address]DrKarolina Chi Neutrophils/100 WBC (Bld) 68.4 % Normal 43.0-75.0 The [facility] Comment on above: Performed By: #### C BC ####[facility] L[address]qaqvbhju[address] [place], [place] [address]DrKarolina Chi Platelet mean volume (Bld) [Entitic vol] 9.5 fL Normal 9.5-13.5 [facility] Comment on above: Performed By: #### C BC ####[facility] Muxadcbgko0611 [place] [address]Dr. Soniya Chi PLT 219 103/ul Normal 150-450 [facility] Comment on above: Performed By: #### C BC ####[facility] Rlokbxpyex3780 [place], [place] [address]Mf. Soniya Chi RBC 3.20 106/ul Critically low 4.20-5.40 [facility] Comment on above: Performed By: #### C BC ####[facility] Qofvftoirh8017 [place] [address]Dr. Soniya Chi WBC 5.2 103/ul Normal 4.0-11.0 [facility] Comment on above: Performed By: #### C BC ####[facility] Vtyradepqj4101 [place] [id number]. Soniya Alon Office Visiton 09-16-2022 Follow-up visit [id number] Marley Osborn 1955 F Date Provider Department Center 09/16/2022 MICHELE BURT [facility] No family history on file Level of Service:61844 MI OFFICE/OUTPATIENT ESTABLISHED MOD MDM 30-39 MIN Reason for Visit and Comments: Follow-up [354338] - Hospitalization - A-fib Edema [[id number]] Palpitations [684876] Normal [facility] PROF CHEM 8 (BAS METB)on Anion gap [Moles/Vol] 10.5 mmol/L Normal [facility] Comment on above: Performed By: #### B MP ####[facility] Fqyzduydmi7586 [place] [address]Dr. Soniya Chi Calcium [Mass/Vol] 10.1 mg/dL Normal 8.5-10.1 [facility] Comment on above: Performed By: #### B MP ####[facility] Rpnmzckoqw6208 [place] [address]Dr. Soniya Alon Chloride [Moles/Vol] 107 mmol/L Normal 98-107 [facility] Comment on above: Performed By: #### B MP ####[facility] Ccowhdqndn8484 [place] [address]Dr. Gypsyjuan Alon CO2 [Moles/Vol] 29.9 mmol/L Normal 21.0-32.[address] [facility] Comment on above: Performed By: #### B MP ####[facility] Jnrnwjgchw1294 [place] [address]Dr. Soniya Chi Creatinine [Mass/Vol] 1.27 mg/dL Critically high 0.55-1.02 [facility] Comment on above: Performed By: #### B MP ####[facility] Jlyqtmdffs[address] [place], [place] [address]Dr. Soniya Chi EGFR-AF IRISH 51 mL/min/1.73m2 Critically low >=60 [facility] Comment on above: Performed By: #### B MP ####[facility] Blbpjwcq[address] [place], [place] [address]Dr. Gypsyjuan Alon EGFR-NON AF IRISH 42 mL/min/1.73m2 Critically low >=60 [facility] Comment on above: Performed By: #### B MP ####[facility] Qpwfapoz[address] [place], [place] [address]Dr. Soniya Chi Glucose [Mass/Vol] 92 mg/dL Normal 74-106 [facility] Comment on above: Performed By: #### B MP ####[facility] Gewrmifwog[address] [place], [place] [address]Dr. Soniya Chi Potassium [Moles/Vol] 4.4 mmol/L Normal 3.5-5.1 [facility] Comment on above: Performed By: #### B MP ####[facility] Qogravbqhy[address] [place], [place] [address]Dr. Soniya Chi Sodium [Moles/Vol] 143 mmol/L Normal 136-145 [facility] Comment on above: Performed By: #### B MP ####[facility] Senpmkzzno[address] [place], [place] [address]Dr. Soniya Chi Urea nitrogen [Mass/Vol] 28.0 mg/dL Critically high 7.0-18.0 [facility] Comment on above: Performed By: #### B MP ####[facility] [address] [place], [place] [address]Ai. Soniya Chi Urea nitrogen/Creatinine [Mass ratio] 22.0 mg/mg Normal [facility] Comment on above: Performed By: #### B MP ####[facility] [address] [place], [place] [address]Ym. Soniya Chi Senior Care Recordson 09-11 Senior Care Records [id number] 58#[id number]:[address] [facility] Outside [facility] Correspo ndenceon 09-11-2022 Outside [facility] Correspondence [id number] 91#[id number]:[address] [facility] Ambulatory Visit Summaryon 0 09-10-2022 Ambulatory [...] Tab) apixaban (apixaban 5 mg oral tablet) bisoprolol-hydrochl orothiazide (bisoprolol-hydroch lorothiazide 2.5 mg-6.25 mg Tab) bisoprolol-hydrochl orothiazide (bisoprolol-hydroch lorothiazide 2.5 mg-6.25 mg Tab) ergocalciferol (ergocalciferol 50,000 intl units Cap) levothyroxine (levothyroxine 75 mcg (0.075 mg) Tab) potassium chloride (Potassium Chloride (Uci-Dibc-Qwd M20) 20 mEq oral tablet, extended release) [...] Appointments Friday. 2022 10:40 AM EDT With: FANNY ROPER, MELVA Laboy Where: [facility] Ying Normal [facility] Family Medicine Office/Clini c Noteon 09-10-2022 Family Medicine Office/Clinic Note Chief Complaint hospital follow up HPI Staff TCM: Fax medical release to [facility] for records. Face to face for Home health care, to fax notes to Hospital:[facility] Admission date:08/22/22 Discharge date:09/07/22 Symptoms the patient presented with: altered mental status. Current concerns: having hard time coping through this need her Klor con refilled Mamm: 04/17/22 normal Colon: 2-3 [...] tablet, 5 mg= 1 tab(s), Oral, BID bisoprolol-hydrochl orothiazide 2.5 mg-6.25 mg Tab, 1 tab(s), Oral, Daily, Not taking bisoprolol-hydrochl orothiazide 2.5 mg-6.25 mg Tab, Not taking ergocalciferol 50,000 intl units Cap levothyroxine 75 mcg (0.075 mg) Tab, 75 mcg= 1 tab(s), Oral, Daily Potassium Chloride (Ssh-Yuud-Odj M20) 20 mEq oral tablet, extended release, [...] Dementia: B (more content not included)... Normal [facility] Comment on above: Result Comment: Elec tronically Signed By: FANNY ROPER, MELVA Laboy\.jacobo\Date and Time Signed: 09/10/22 11:29 EDT Outside [facility] Correspo ndenceon 09-02-2022 Outside [facility] Correspondence [id number]#[id number]:[address] [facility] Basic Metabolic Panelon 08-01 Anion gap [Moles/Vol] 11 mmol/L 9 - 17 mmol/L [facility] Calcium [Mass/Vol] 10.0 mg/dL 8.6 - 10.4 mg/dL [facility] Chloride [Moles/Vol] 105 mmol/L 98 - 107 mmol/L [facility] CO2 [Moles/Vol] 28 mmol/L 20 - 31 mmol/L [facility] Creatinine [Mass/Vol] 1.06 mg/dL High 0.50 - 0.90 mg /dL [facility] GFR/1.73 sq M.predicted MDRD (S/P/Bld) [Vol rate/Area] 58 mL/min/{1.73_m2} Low - PINF [facility] Comment on above: These results are not [...] [Mass/Vol] 89 mg/dL 70 - 99 mg/dL [facility] Interpretation and review of laboratory results Abnormal [facility] Potassium [Moles/Vol] 4.2 mmol/L 3.7 - 5.3 mmol /L [facility] Sodium [Moles/Vol] 144 mmol/L 135 - 144 mmol/L [facility] Urea nitrogen [Mass/Vol] 18 mg/dL 8 - 23 mg/dL [facility] Urea nitrogen/Creatinine (Bld) [Mass ratio] 17 9 - 20 [facility] Basic Metabolic Profon 08-27 Anion gap [Moles/Vol] 11 mmol/L Normal 9-17 [facility] Comment on above: Performed By: #### B LONI, TSH #### [facility] [address] [place] [address] Procurement Buyer: Kayley Doll MD BUN/CRE Ratio 17 Normal 9-20 [facility] Comment on above: Performed By: #### B LONI, TSH #### [facility] [address] [place] [address] Procurement Buyer: Kayley Doll MD Calcium [Mass/Vol] 10.0 mg/dL Normal 8.6-10.4 [facility] Comment on above: Performed By: #### B LONI, TSH #### [facility] [address] [place] [address] Procurement Buyer: Kayley Doll MD Chloride [Moles/Vol] 105 mmol/L Normal 98-107 [facility] Comment on above: Performed By: #### B MP, TSH #### [facility] [address] [place], [place] [id number] Procurement Buyer: Kayley Doll MD CO2 [Moles/Vol] 28 mmol/L Normal 20-31 [facility] Comment on above: Performed By: #### B LONI, TSH #### [facility] [address] [place], [place] [id number] Procurement Buyer: Kayley Doll MD Creatinine [Mass/Vol] 1.06 mg/dL High 0.50-0.90 [facility] Comment on above: Performed By: #### B LONI, TSH #### [facility] [address] [place] [address] Procurement Buyer: Kayley Doll MD GFR/1.73 sq M.predicted among non-blacks MDRD (S/P/Bld) [Vol rate/Area] 58 mL/min/{1.73_m2} Low >60 [facility] Comment on above: Result Comment: These results [...] renal tubular secretion. Performed By: #### B MP, TSH #### [facility] [address] [place] [address] Procurement Buyer: Kayley Doll MD Glucose [Mass/Vol] 89 mg/dL Normal 70-99 [facility] Comment on above: Performed By: #### B LONI, TSH #### [facility] [address] [place] [address] [place] [address] Procurement Buyer: Kayley Doll MD Potassium [Moles/Vol] 4.2 mmol/L Normal 3.7-5.3 [facility] Comment on above: Performed By: #### B MP, TSH #### [facility] [address] [place] [address] [place] [address] Procurement Buyer: Kayley Doll MD Sodium [Moles/Vol] 144 mmol/L Normal 135-144 [facility] Comment on above: Performed By: #### B MP, TSH #### [address] [place] [address] Procurement Buyer: Kayley Doll MD Urea nitrogen [Mass/Vol] 18 mg/dL Normal 8-23 [facility] Comment on above: Performed By: #### B MP, TSH #### [address] [place] [address] Procurement Buyer: Kayley Doll MD Cult,Urineon 08-27-2022 Cult,Urine Specimen Description .CLEAN CATCH URINE Culture NO SIGNIFICANT GROWTH Report Status FINAL 08/26/2022 Normal [facility] Comment on above: Performed By: #### U RC #### [address] [address] Procurement Buyer: Jersey Dahl MD [facility] [address] [place] [address] [place] [address] Procurement Buyer: Kayley Doll MD No Panel Informationon 08-27 [facility] TSHon 08-27-2022 TSH Qn 3.78 m[IU]/L [facility] Thyroid Stim. Horm.on 2022 Thyroid Stim. Horm. 3.78 uIU/mL Normal 0.30-5.00 [facility] Comment on above: Performed By: #### B MP, TSH #### [facility] [address] [place] [address] [place] [address] Procurement Buyer: Kayley Doll MD Urinalysison 08-25-2022 Bilirubin Urine Negative NEGATIVE [facility] Color, UA Yellow Yellow [facility] Glucose Auto test strip (U) [Mass/Vol] Negative NEGATIVE [facility] Interpretation and review of laboratory results Abnormal [facility] Ketones (U) [Mass/Vol] Negative NEGATIVE [facility] Leukocyte esterase Auto test strip Ql (U) Negative NEGATIVE [facility] Nitrite Auto test strip Ql (U) Negative NEGATIVE [facility] Protein (U) [Mass/Vol] 7.0 mg/dL 5.0 - 9.0 [facility] Protein (U) [Mass/Vol] Negative NEGATIVE [facility] Specific [place], UA Low 1.010 - 1.020 B ON [facility] Turbidity UA Clear Clear [facility] Urine Hgb Negative NEGATIVE [facility] Urobilinogen, Urine Normal Normal [facility]inalysis, Routineon 2022 Bilirubin, SemiQt,Ur Negative Normal NEG [facility] Comment on above: Performed By: #### U A #### [address] [place] [address] Procurement Buyer: Kayley Doll MD Blood, Urine Negative Normal NEG [facility] Comment on above: Performed By: #### U A #### [facility] [address] [place] [address] [place] [address] Procurement Buyer: Kayley Doll MD Clarity (U) Clear Normal CLEAR [facility] Comment on above: Performed By: #### U A #### [facility] [address] [place] [address] [place] [address] Procurement Buyer: Kayley Doll MD Color (U) Yellow Normal YEL [facility] Comment on above: Performed By: #### U A #### [facility] [address] [place] [address] [place] [place], [place] [id number] Procurement Buyer: Kayley Doll MD Glucose Ql (U) Negative Normal NEG [facility] Comment on above: Performed By: #### U A #### [facility] [address] [place] [address] [place] [place], [place] [id number] Procurement Buyer: Kayley Doll MD Ketones Ql (U) Negative Normal NEG [facility] Comment on above: Performed By: #### U A #### [facility] [address] [place] [address] [place], [place] [phone] Procurement Buyer: Kayley Doll MD Leukocyte esterase Test strip Ql (U) Negative Normal NEG [facility] Comment on above: Performed By: #### U A #### [address] [place] [address] Procurement Buyer: Kayley Doll MD Nitrite,Ur Negative Normal NEG [facility] Comment on above: Performed By: #### U A #### [facility] [address] [place] [address] [place] [address] Procurement Buyer: Kayley Doll MD PH,Ur 7.0 Normal 5.0-9.0 [facility] Comment on above: Performed By: #### U A #### [facility] [address] [place] [address] [place] [place], [place] [id number] Procurement Buyer: Kayley Doll MD Protein Ql (U) Negative Normal NEG [facility] Comment on above: Performed By: #### U A #### [facility] [address] [place] [address] [place] [place], [place] [id number] Procurement Buyer: Kayley Doll MD Spec. [place],Ur <1.005 Low 1.010-1.020 [facility] Comment on above: Performed By: #### U A #### [facility] [address] [place] [address] [place] [address] Procurement Buyer: Kayley Doll MD Urobilinogen,Ur Normal Normal NORM [facility] Comment on above: Performed By: #### U A #### [facility] [address] [place], [place] [address] Procurement Buyer: Kayley Doll MD CBC AUTO DIFFon 08-22-2022 BASO # 0.0 103/ul Normal 0.0-0.1 [facility] Comment on above: Performed By: #### C BC ####[facility] [address] [place] [address]Dr. Gypsyjuan Chi Basophils/100 WBC (Bld) 0.4 % Normal 0.2-2.0 [facility] Comment on above: Performed By: #### C BC ####[facility] [address] [place], [place] [address]Dr. Gypsyjuan Chi EO # 0.2 103/ul Normal 0.0-0.7 [facility] Comment on above: Performed By: #### C BC ####[facility] [address] [place], [place] [address]Dr. Gypsyjuan Chi Eosinophils/100 WBC (Bld) 2.7 % Normal 0.9-7.0 [facility] Comment on above: Performed By: #### C BC ####[facility] [address] [place] [address]Dr. Soniya Chi Erythrocyte distribution width (RBC) [Ratio] 15.1 % Critically high 11.0-15.0 [facility] Comment on above: Performed By: #### C BC ####[facility] [address] [place], [place] [address]Dr. Soniya Chi Hematocrit (Bld) [Volume fraction] 24.2 % Critically low 36.0-48.0 [facility] Comment on above: Performed By: #### C BC ####[facility] [address] [place], [place] [address]Dr. Soniya Chi Hemoglobin (Bld) [Mass/Vol] 8.0 g/dL Critically low 12.0-16.0 [facility] Comment on above: Performed By: #### C BC ####[facility] [address] [place] [address]Dr. Soniya Chi IG # 0.03 10e3/ul Normal 0.00-0.03 [facility] Comment on above: Performed By: #### C BC ####[facility] [address] [place] [address]Dr. Soniya Chi IG % 0.5 % Normal 0.0-0.5 [facility] Comment on above: Performed By: #### C BC ####[facility] [address] [place] [address]Dr. Soniya Alon LYMPH # 1.3 103/ul Normal 1.2-3.8 [facility] Comment on above: Performed By: #### C BC ####[facility] [address] [place] [address]Dr. Gypsyjuan Chi Lymphocytes/100 WBC (Bld) 23.4 % Normal 20.5-60.0 [facility] Comment on above: Performed By: #### C BC ####[facility] [address] [place] [address]Dr. Gypsyjuan Chi MANUAL DIFF REQ NO Normal [facility] Comment on above: Performed By: #### C BC ####[facility] [address] [place] [address]Dr. Soniya Chi MCH (RBC) [Entitic mass] 30.8 pg Normal 26.7-34.0 [facility] Comment on above: Performed By: #### C BC ####[facility] [address] [place] [address]Dr. Soniya Chi MCHC (RBC) [Mass/Vol] 33.1 g/dL Normal 29.9-35.2 [facility] Comment on above: Performed By: #### C BC ####[facility] [address] [place] [address]Dr. Soniya Chi MCV (RBC) [Entitic vol] 93.1 fL Normal 81.0-99.0 [facility] Comment on above: Performed By: #### C BC ####[facility] [address] [place] [address]Dr. Soniya Chi MONO # 0.6 103/ul Normal 0.3-0.8 [facility] Comment on above: Performed By: #### C BC ####[facility] [address] [place] [address]Dr. Soniya Chi Monocytes/100 WBC (Bld) 10.3 % Normal 1.7-12.0 [facility] Comment on above: Performed By: #### C BC ####[facility] [address] [place] [address]Dr. Soniya Chi NEUT # 3.5 103/ul Normal 1.4-6.5 [facility] Comment on above: Performed By: #### C BC ####[facility] [address] [place] [address]Dr. Soniya Chi Neutrophils/100 WBC (Bld) 62.7 % Normal 43.0-75.0 [facility] Comment on above: Performed By: #### C BC ####[facility] [address] [place] [address]Dr. Soniya Chi Platelet mean volume (Bld) [Entitic vol] 10.6 fL Normal 9.5-13.5 [facility] Comment on above: Performed By: #### C BC ####[facility] [address] [place] [address]Dr. Soniya Chi PLT 133 103/ul Critically low 150-450 [facility] Comment on above: Performed By: #### C BC ####[facility] Q[address]eesbzk75[address] [place] [address]Dr. Soniya Chi RBC 2.60 106/ul Critically low 4.20-5.40 [facility] Comment on above: Performed By: #### C BC ####[facility] U[address]86[address] [place] [address]Dr. Soniya Chi WBC 5.6 103/ul Normal 4.0-11.0 [facility] Comment on above: Performed By: #### C BC ####[facility] [address]iky[address] [place] [address]Dr. Soniya Chi PROF 14(COMP METB)on 023 Albumin [Mass/Vol] 2.3 g/dL Critically low 3.4-5.0 Th [facility] Comment on above: Performed By: #### C MP, TSH ####[facility] [address]uzu[address] [place] [id number]. Soniya Chi Albumin/Globulin [Mass ratio] 0.8 {ratio} Normal [facility] Comment on above: Performed By: #### C MP, TSH ####[facility] [address] [place] [address]Dr. Soniya Chi ALP [Catalytic activity/Vol] 80 U/L Normal 46-116 [facility] Comment on above: Performed By: #### C LONI, TSH ####[facility] [address]thcm[address] [place] [address]Dr. Soniya Chi ALT [Catalytic activity/Vol] 23 U/L Normal 14-59 [facility] Comment on above: Performed By: #### C LONI, TSH ####[facility] [address]im[address]bi[address] [place] [address]Dr. Soniya Chi Anion gap [Moles/Vol] 9.7 mmol/L Normal [facility] Comment on above: Performed By: #### C LONI, TSH ####[facility] X[address]etheoz[address] [place] [address]Dr. Soniya Chi AST [Catalytic activity/Vol] 20 U/L Normal 15-37 [facility] Comment on above: Performed By: #### C MP, TSH ####[facility] [address]ijvhxp[address] [place] [address]Dr. Soniya Chi Bilirubin [Mass/Vol] 0.6 mg/dL Normal 0.2-1.0 [facility] Comment on above: Performed By: #### C MP, TSH ####[facility] V[address] [place] [address]Dr. Soniya Chi Calcium [Mass/Vol] 8.7 mg/dL Normal 8.5-10.1 [facility] Comment on above: Performed By: #### C MP, TSH ####[facility] [address]trvmlbod[address] [place] [address]Dr. Soniya Chi Chloride [Moles/Vol] 105 mmol/L Normal 98-107 [facility] Comment on above: Performed By: #### C MP, TSH ####[facility] Mbnnbikstr036[address] [place] [address]Dr. Soniya Chi CO2 [Moles/Vol] 30.0 mmol/L Normal 21.0-32.0 The [facility] [place] [facility] Comment on above: Performed By: #### C MP, TSH ####[facility] [address]incvpnfvj[address] [place] [address]Dr. Soniya Chi Creatinine [Mass/Vol] 0.96 mg/dL Normal 0.55-1.02 [facility] Comment on above: Performed By: #### C MP, TSH ####[facility] [address]duc[address] [place] [address]Dr. Soniya Chi EGFR-AF IRISH >60 Normal >=60 [facility] [place] [facility] Comment on above: Performed By: #### C MP, TSH ####[facility] [address]fjs[address]kwko07[address] [place] [address]Dr. Soniya Chi EGFR-NON AF IRISH 58 mL/min/1.73m2 Critically low >=60 [facility] Comment on above: Performed By: #### C MP, TSH ####[facility] [address]rhwxv[address] [place] [address]Dr. Soniya Chi Globulin (S) [Mass/Vol] 2.8 g/dL Normal [facility] Comment on above: Performed By: #### C MP, TSH ####[facility] [address] [place] [address]Dr. Soniya Chi Glucose [Mass/Vol] 96 mg/dL Normal 74-106 [facility] Comment on above: Performed By: #### C MP, TSH ####[facility] [address]heb[address] [place] [address]Dr. Soniya Chi Potassium [Moles/Vol] 2.7 mmol/L Critically low 3.5-5.1 [facility] Comment on above: Performed By: #### C MP, TSH ####[facility] L[address]mkfz[address] [place] [address]Dr. Soniya Chi Protein [Mass/Vol] 5.1 g/dL Critically low 6.4-8.2 Th [facility] Comment on above: Performed By: #### C MP, TSH ####[facility] W[address]ub[address] [place] [address]Dr. Soniya Chi Sodium [Moles/Vol] 141 mmol/L Normal 136-145 [facility] Comment on above: Performed By: #### C MP, TSH ####[facility] Xilt[address]fuze[address] [place] [address]Dr. Soniya Alon Urea nitrogen [Mass/Vol] 17.0 mg/dL Normal 7.0-18.0 [facility] Comment on above: Performed By: #### C MP, TSH ####[facility] [address] [place], [place] [address]Dr. Soniya Chi Urea nitrogen/Creatinine [Mass ratio] 17.7 mg/mg Normal [facility] Comment on above: Performed By: #### C MP, TSH ####[facility] [address] [place], [place] [address]Dr. Soniya Chi TSHon 08-22-2022 TSH 2.840 uIU/mL Normal 0.358-3.740 [facility] Comment on above: Performed By: #### C MP, TSH ####[facility] [address] [place], [place] [address]Dr. Soniya Alon CBC AUTO DIFFon 08-21-2022 BASO # 0.0 103/ul Normal 0.0-0.1 [facility] Comment on above: Performed By: #### C BC ####[facility] [address] [place], [place] [address]Dr. Gypsyjuan Chi Basophils/100 WBC (Bld) 0.3 % Normal 0.2-2.0 [facility] Comment on above: Performed By: #### C BC ####[facility] [address] [place], [place] [address]Dr. Soniya Chi EO # 0.1 103/ul Normal 0.0-0.7 [facility] Comment on above: Performed By: #### C BC ####[facility] M[address]qtiijvz[address] [place] [address]Dr. Soniya Chi Eosinophils/100 WBC (Bld) 0.9 % Normal 0.9-7.0 [facility] Comment on above: Performed By: #### C BC ####[facility] [address] [place], [place] [address]Dr. Soniya Chi Erythrocyte distribution width (RBC) [Ratio] 15.1 % Critically high 11.0-15.0 [facility] Comment on above: Performed By: #### C BC ####[facility] [address] [place], [place] [address]Dr. Soniya Chi Hematocrit (Bld) [Volume fraction] 27.3 % Critically low 36.0-48.0 [facility] Comment on above: Performed By: #### C BC ####[facility] [address]rg[address] [place], [place] [address]Dr. Soniya Chi Hemoglobin (Bld) [Mass/Vol] 8.9 g/dL Critically low 12.0-16.0 [facility] Comment on above: Performed By: #### C BC ####[facility] [address] [place], [place] [address]Dr. Soniya Chi IG # 0.03 10e3/ul Normal 0.00-0.03 [facility] Comment on above: Performed By: #### C BC ####[facility] [address] [place], [place] [address]Dr. Soniya Chi IG % 0.5 % Normal 0.0-0.5 [facility] Comment on above: Performed By: #### C BC ####[facility] Rcrynmtl[address] [place], [place] [address]DrKarolina Chi LYMPH # 1.0 103/ul Critically low 1.2-3.8 The [facility] Comment on above: Performed By: #### C BC ####[facility] Gkukdtdllp377[address] [place], [place] [address]Dr. Soniya Chi Lymphocytes/100 WBC (Bld) 14.9 % Critically low 20.5-60.0 The [facility] Comment on above: Performed By: #### C BC ####[facility] Ocv[address]vwlhxr[address] [place] [address]DrKarolina Chi MANUAL DIFF REQ NO Normal The [facility] Comment on above: Performed By: #### C BC ####[facility] Spgqaqhsmw6370 [place] [address]Dr. Soniya Chi MCH (RBC) [Entitic mass] 31.2 pg Normal 26.7-34.0 The [facility] Comment on above: Performed By: #### C BC ####[facility] Rtsgvagsxk[address] [place], [place] [address]DrKarolina Chi MCHC (RBC) [Mass/Vol] 32.6 g/dL Normal 29.9-35.2 The [facility] Comment on above: Performed By: #### C BC ####[facility] Gtmerbpich[address] [place], [place] [address]DrKarolina Chi MCV (RBC) [Entitic vol] 95.8 fL Normal 81.0-99.0 The [facility] Comment on above: Performed By: #### C BC ####[facility] Kqhvuwhsnp[address] [place], [place] [address]DrKarolina Chi MONO # 0.6 103/ul Normal 0.3-0.8 The [facility] Comment on above: Performed By: #### C BC ####[facility] Qwmyplyngt[address] [place], [place] [address]DrKarolina Chi Monocytes/100 WBC (Bld) 8.8 % Normal 1.7-12.0 The [facility] Comment on above: Performed By: #### C BC ####[facility] Fyadscgtfr27[address] [place], [place] [address]DrKarolina Chi NEUT # 4.9 103/ul Normal 1.4-6.5 The [facility] Comment on above: Performed By: #### C BC ####[facility] Elilbdeils36[address] [place], [place] [address]DrKarolina Chi Neutrophils/100 WBC (Bld) 74.6 % Normal 43.0-75.0 [facility] Comment on above: Performed By: #### C BC ####[facility] Jzkiraqsew07[address] [place] [address]Dr. Soniya Chi Platelet mean volume (Bld) [Entitic vol] 10.7 fL Normal 9.5-13.5 [facility] Comment on above: Performed By: #### C BC ####[facility] Toedbvrjho[address] [place] [address]Dr. Soniya Alon PLT 127 103/ul Critically low 150-450 [facility] Comment on above: Performed By: #### C BC ####[facility] Mzecfxqogg6346 [place] [address]Dr. Soniya Alon RBC 2.85 106/ul Critically low 4.20-5.40 [facility] Comment on above: Performed By: #### C BC ####[facility] Ihrafaysmf8726 [place] [address]Dr. Soniya Alon WBC 6.6 103/ul Normal 4.0-11.0 [facility] Comment on above: Performed By: #### C BC ####[facility] Nsgmlcuavi67[address] [place], [place] [address]DrKarolina Soniya Alon PROF 14(COMP METB)on 023 Albumin [Mass/Vol] 2.8 g/dL Critically low 3.4-5.0 [facility] Comment on above: Performed By: #### T TIFFANIE, CMP ####[facility] Hakauzevgp35[address] [place] [address]Dr. Soniya Alon Albumin/Globulin [Mass ratio] 0.8 {ratio} Normal [facility] Comment on above: Performed By: #### T TIFFANIE, CMP ####[facility] Awqbvuctjn23[address] [place], [place] [address]Dr. Soniya Alon ALP [Catalytic activity/Vol] 101 U/L Normal 46-116 [facility] Comment on above: Performed By: #### T TIFFANIE, CMP ####[facility] Q[address]rsywt[address] [place], [place] [address]Dr. Soniya Chi ALT [Catalytic activity/Vol] 27 U/L Normal 14-59 [facility] Comment on above: Performed By: #### T TIFFANIE, CMP ####[facility] Jgggazjpoz[address] [place], [place] [address]Dr. Soniya Chi Anion gap [Moles/Vol] 15.6 mmol/L Normal [facility] Comment on above: Performed By: #### T TIFFANIE, CMP ####[facility] Pzgwridtuo[address] [place], [place] [address]Dr. Soniya Chi AST [Catalytic activity/Vol] 23 U/L Normal 15-37 [facility] Comment on above: Performed By: #### T TIFFANIE, CMP ####[facility] Qdjjruvbfk66[address] [place], [place] [address]Dr. Soniya Chi Bilirubin [Mass/Vol] 0.9 mg/dL Normal 0.2-1.0 [facility] Comment on above: Performed By: #### T TIFFANIE, CMP ####[facility] Uyxvdftqwj30[address] [place], [place] [address]Dr. Soniya Chi Calcium [Mass/Vol] 9.1 mg/dL Normal 8.5-10.1 [facility] Comment on above: Performed By: #### T TIFFANIE, CMP ####[facility] Dzlyfweisi[address] [place], [place] [address]Dr. Soniya Chi Chloride [Moles/Vol] 108 mmol/L Critically high 98-107 The [facility] Comment on above: Performed By: #### T TIFFANIE, CMP ####[facility] Kwubzdhmus[address] [place], [place] [address]Dr. Soniya Chi CO2 [Moles/Vol] 25.8 mmol/L Normal 21.0-32.0 The [facility] [place] [facility] Comment on above: Performed By: #### T TIFFANIE, CMP ####[facility] Sxdabylxuk[address] [place], [place] [address]Dr. Soniya Chi Creatinine [Mass/Vol] 1.01 mg/dL Normal 0.55-1.02 [facility] Comment on above: Performed By: #### T TIFFANIE, CMP ####[facility] Tmjfwskkfk6104 [place] [address]Dr. Soniya Chi EGFR-AF IRISH >60 Normal >=[address] [facility] Comment on above: Performed By: #### T SH, CMP ####[facility] Rqqepemusz5513 [place] [address]Dr. Soniya Chi EGFR-NON AF IRISH 55 mL/min/1.73m2 Critically low >=60 [facility] Comment on above: Performed By: #### T TIFFANIE, CMP ####[facility] Zmshkqaqkj1786 [place] [phone]. Soniya Chi Globulin (S) [Mass/Vol] 3.3 g/dL Normal [facility] Comment on above: Performed By: #### T TIFFANIE, CMP ####[facility] Hondjkwhvb5323 [place] [address]Dr. Soniya Chi Glucose [Mass/Vol] 68 mg/dL Critically low 74-106 Th [facility] Comment on above: Performed By: #### T TIFFANIE, CMP ####[facility] Fsaknwznfl[address] [place], [place] [address]Dr. Soniya Chi Potassium [Moles/Vol] 3.4 mmol/L Critically low 3.5-5.1 [facility] Comment on above: Performed By: #### T TIFFANIE, CMP ####[facility] Xsrduutkix6358 [place] [phone]. Soniya Chi Protein [Mass/Vol] 6.1 g/dL Critically low 6.4-8.2 [facility] Comment on above: Performed By: #### T TIFFANIE, CMP ####[facility] Ognbqplztk6216 [place] [phone]. Soniya Chi Sodium [Moles/Vol] 146 mmol/L Critically high 136-145 [facility] Comment on above: Performed By: #### T SH, CMP ####[facility] Bqkxwjofrv[address] [place], [place] [address]Dr. Soniya Chi Urea nitrogen [Mass/Vol] 21.0 mg/dL Critically high 7.0-18.0 [facility] Comment on above: Performed By: #### T , CMP ####[facility] Kzkuguwfcd9285 [place], [place] [address]Yd. Soniya Chi Urea nitrogen/Creatinine [Mass ratio] 20.8 mg/mg Normal The [facility] Comment on above: Performed By: #### T TIFFANIE, CMP ####[facility] Ussvqbncfy47[address] [place], [place] [address]Qt. Soniya Cih Patient Educationon 08-22-19 23 Patient Education Cooking With Less Salt Cooking with less salt is one way to reduce the amount of sodium you get from food. Depending on your condition and overall health, your health care provider or diet and nutritional yeast supervisor (dietitian) may recommend that you reduce your [...] Use sodium-free baking soda when baking. ? Bonesteel, braise, or roast foods to add flavor [...] you can pair it with. Herbs ? Grayson leaves ? Soups, meat and vegetable dishes, and spaghetti sauce. ? Basil ? Equatorial Guinean dishes, soups, pasta, and fish dishes. ? Cilantro ? Meat, poultry, and vegetable dishes. ? [place] powder ? Marinades and Nigerien dishes. ? Chives ? Salad dressings and potato dishes. ? Cumin ? Nigerien dishes, couscous, and meat dishes. ? Dill ? Fish dishes, sauces, and salads. ? Fennel ? Meat and vegetable dishes, breads, and cookies. ? Garlic (do not use garlic salt) ? Equatorial Guinean dishes, meat dishes, salad dressings, and sauces. ? Marjoram ? Soups, potato dishes, and meat dishes. ? Oregano ? Pizza and spaghetti sauce. ? Parsley ? Salads, soups, pasta, and meat dishes. ? Dalila ? Equatorial Guinean dishes, salad dressings, soups, and red meats. [...] and low-sodium cheeses. Good cheese choices include Jamaican, [place] Obdulio, and mozzarella. Always check the label [...] 05/19/2006 Document Revised: 05/01/2018 Document Reviewed: 05/27/2017 [employer] Patient Education ? 2019 [employer] Nephr (more content not included)... Normal [facility] TSHon 08-21-2022 TSH 4.750 uIU/mL Critically high 0.358-3.740 The [facility] Comment on above: Performed By: #### T SH, CMP ####[facility] Swoaddqvas5030 [place], [place] [address]Sb. Soniya Chi CBC AUTO DIFFon 08-20-2022 BASO # 0.0 103/ul Normal 0.0-0.1 [facility] Comment on above: Performed By: #### C BC ####[facility] Xktvqbltli0777 [place], [place] [address]AqKarolina Chi Basophils/100 WBC (Bld) 0.3 % Normal 0.2-2.0 The [facility] Comment on above: Performed By: #### C BC ####[facility] Mbiczajcfo7[address] [place] [address]Dr. Soniya Chi EO # 0.0 103/ul Normal 0.0-0.7 The [facility] Comment on above: Performed By: #### C BC ####[facility] Beixtuynrw[address] [place], [place] [address]Dr. Gypsyjuan Chi Eosinophils/100 WBC (Bld) 0.6 % Critically low 0.9-7.0 [facility] Comment on above: Performed By: #### C BC ####[facility] Nyjvwikxxy[address] [place], [place] [address]Dr. Gypsyjuan Chi Erythrocyte distribution width (RBC) [Ratio] 15.5 % Critically high 11.0-15.0 [facility] Comment on above: Performed By: #### C BC ####[facility] Charqcbuzn[address] [place], [place] [address]Dr. Soniya Chi Hematocrit (Bld) [Volume fraction] 26.7 % Critically low 36.0-48.0 [facility] Comment on above: Performed By: #### C BC ####[facility] Mmwowxmlfm[address] [place], [place] [address]Dr. Soniya Chi Hemoglobin (Bld) [Mass/Vol] 8.7 g/dL Critically low 12.0-16.0 The [facility] Comment on above: Performed By: #### C BC ####[facility] Imetcambeg2[address] [place], [place] [address]Dr. Gypsyjuan Chi IG # 0.02 10e3/ul Normal 0.00-0.03 The [facility] Comment on above: Performed By: #### C BC ####[facility] Qrytaoeexi60[address] [place], [place] [address]Dr. Soniya Chi IG % 0.3 % Normal 0.0-0.5 The [facility] Comment on above: Performed By: #### C BC ####[facility] Xogjdxethi[address] [place], [place] [address]DrKarolina Chi LYMPH # 0.9 103/ul Critically low 1.2-3.8 [facility] Comment on above: Performed By: #### C BC ####[facility] Znbhyypznc5678 [place] [address]Dr. Soniya Chi Lymphocytes/100 WBC (Bld) 12.8 % Critically low 20.5-60.0 [facility] Comment on above: Performed By: #### C BC ####[facility] Fpqprxaiwm2219 [place] [address]DrKarolina Chi MANUAL DIFF REQ NO Normal [facility] Comment on above: Performed By: #### C BC ####[facility] Lgcgrjfmcg4881 [place] [address]Dr. Soniya Chi MCH (RBC) [Entitic mass] 30.7 pg Normal 26.7-34.0 [facility] Comment on above: Performed By: #### C BC ####[facility] Rleipbmpmt[address] [place], [place] [address]Dr. Sonyia Chi MCHC (RBC) [Mass/Vol] 32.6 g/dL Normal 29.9-35.2 [facility] Comment on above: Performed By: #### C BC ####[facility] Rpllagjcvn[address] [place], [place] [address]DrKarolina Chi MCV (RBC) [Entitic vol] 94.3 fL Normal 81.0-99.0 [facility] Comment on above: Performed By: #### C BC ####[facility] Tzhjtsklfa3307 [place] [address]Dr. Soniya Chi MONO # 0.6 103/ul Normal 0.3-0.8 [facility] Comment on above: Performed By: #### C BC ####[facility] Ufthobtbyu[address] [place], [place] [address]Dr. Soniya Chi Monocytes/100 WBC (Bld) 9.4 % Normal 1.7-12.0 The [facility] Comment on above: Performed By: #### C BC ####[facility] Gnwoexxlud[address] [place], [place] [address]DrKarolina Chi NEUT # 5.1 103/ul Normal 1.4-6.5 [facility] Comment on above: Performed By: #### C BC ####[facility] Cszgnrqitf3006 [place] [address]Dr. Soniya Chi Neutrophils/100 WBC (Bld) 76.6 % Critically high 43.0-75.0 [facility] Comment on above: Performed By: #### C BC ####[facility] Qxlnblkvhd7050 [place] [address]Dr. Soniya Chi Platelet mean volume (Bld) [Entitic vol] 11.6 fL Normal 9.5-13.5 [facility] Comment on above: Performed By: #### C BC ####[facility] Zfdgmpyrdh7121 [place] [address]Dr. Soniya Chi PLT 113 103/ul Critically low 150-450 [facility] Comment on above: Performed By: #### C BC ####[facility] Rejznbcydh0379 [place] [address]Dr. Soniya Chi RBC 2.83 106/ul Critically low 4.20-5.40 [facility] Comment on above: Performed By: #### C BC ####[facility] Didpdvtoqs9444 [place] [address]Dr. Soniya Chi WBC 6.6 103/ul Normal 4.0-11.0 [facility] Comment on above: Performed By: #### C BC ####[facility] Ibdqhkiuup4845 [place] [address]Dr. Soniya Chi CULTURE URINEon 08-20-2022 CULTURE URINE Normal [facility] Comment on above: Performed By: #### U RCX ####[facility] Jivzeyqpgk2207 [place] [address]Dr. Soniya Chi Lab Reportson 08-20-2022 Lab Reports [id number] 2#1.00CD:[address] [facility] Lab Reports [id number]#1.00CD:[address] [facility] Lab Reports [id number] CC#1.00CD:[address] [facility] Outside [facility] Correspo stephanie 08-20-2022 Outside [facility] Correspondence [id number] 4#1.00CD:[address] [facility] Outside [facility] Correspondence [id number] 0#1.00CD:[address] [facility] Outside [facility] Correspondence [id number]. [id number] 8#1.00CD:[address] [facility] PROF 14(COMP METB)on 023 Albumin [Mass/Vol] 2.7 g/dL Critically low 3.4-5.0 [facility] Comment on above: Performed By: #### C MP, TSH ####[facility] Fbzhqpgidg6190 [place] [address]Dr. Soniya Chi Albumin/Globulin [Mass ratio] 0.9 {ratio} Normal [facility] Comment on above: Performed By: #### C MP, TSH ####[facility] Ddhswiouoe9044 [place] [address]Dr. Soniya Chi ALP [Catalytic activity/Vol] 83 U/L Normal 46-116 [facility] Comment on above: Performed By: #### C MP, TSH ####[facility] Qxccebglyj4017 [place] [address]Dr. Soniya Chi ALT [Catalytic activity/Vol] 29 U/L Normal 14-59 [facility] Comment on above: Performed By: #### C MP, TSH ####[facility] Ulxgthxmgt0418 [place] [address]Dr. Soniya Chi Anion gap [Moles/Vol] 12.3 mmol/L Normal [facility] Comment on above: Performed By: #### C MP, TSH ####[facility] Xbihvklkgo7860 [place] [address]Dr. Soniya Chi AST [Catalytic activity/Vol] 21 U/L Normal 15-37 [facility] Comment on above: Performed By: #### C MP, TSH ####[facility] Dbelhbnwjo2669 [place] [address]Dr. Soniya Alon Bilirubin [Mass/Vol] 1.2 mg/dL Critically high 0.2-1.0 [facility] Comment on above: Performed By: #### C MP, TSH ####[facility] Gwnglkvbxw4244 [place] [address]Dr. Soniya Chi Calcium [Mass/Vol] 9.3 mg/dL Normal 8.5-10.1 [facility] Comment on above: Performed By: #### C MP, TSH ####[facility] Irjjzffcwy[address] [place], [place] [address]Dr. Soniya Chi Chloride [Moles/Vol] 109 mmol/L Critically high 98-107 [facility] Comment on above: Performed By: #### C MP, TSH ####[facility] Rjvdaxtign[address] [place], [place] [address]Dr. Gypsyjuan Chi CO2 [Moles/Vol] 27.1 mmol/L Normal 21.0-32.0 The [facility] [place] [facility] Comment on above: Performed By: #### C MP, TSH ####[facility] Qlwkkyoazq23[address] [place], [place] [address]Dr. Soniya Alon Creatinine [Mass/Vol] 1.13 mg/dL Critically high 0.55-1.02 [facility] Comment on above: Performed By: #### C MP, TSH ####[facility] Hllfkcmdas[address] [place], [place] [address]Dr. Gypsyjuan Alon EGFR-AF IRISH 58 mL/min/1.73m2 Critically low >=60 The [facility] Comment on above: Performed By: #### C MP, TSH ####[facility] Jnhpueuaef[address] [place], [place] [address]Dr. Soniya Chi EGFR-NON AF IRISH 48 mL/min/1.73m2 Critically low >=60 The [facility] Comment on above: Performed By: #### C MP, TSH ####[facility] Klyohsppho2[address] [place], [place] [address]Dr. Soniya Chi Globulin (S) [Mass/Vol] 3.1 g/dL Normal [facility] Comment on above: Performed By: #### C MP, TSH ####[facility] Gytsorpcry7[address] [place], [place] [address]Dr. Soniya Chi Glucose [Mass/Vol] 80 mg/dL Normal 74-106 [facility] Comment on above: Performed By: #### C MP, TSH ####[facility] Tccomoqjxp254[address] [place], [place] [address]Dr. Soniya Chi Potassium [Moles/Vol] 3.4 mmol/L Critically low 3.5-5.1 [facility] Comment on above: Performed By: #### C MP, TSH ####[facility] Kdrdeqmxnt[address] [place], [place] [address]Dr. Soniya Chi Protein [Mass/Vol] 5.8 g/dL Critically low 6.4-8.2 Th [facility] Comment on above: Performed By: #### C MP, TSH ####[facility] Ypxanwzodr[address] [place], [place] [address]Dr. Soniya Chi Sodium [Moles/Vol] 145 mmol/L Normal 136-145 [facility] Comment on above: Performed By: #### C MP, TSH ####[facility] Ebbpruildx7[address] [place], [place] [address]Dr. Soniya Chi Urea nitrogen [Mass/Vol] 23.0 mg/dL Critically high 7.0-18.0 [facility] Comment on above: Performed By: #### C MP, TSH ####[facility] Leicdgwcov42[address] [place], [place] [address]Dr. Soniya Chi Urea nitrogen/Creatinine [Mass ratio] 20.4 mg/mg Normal [facility] Comment on above: Performed By: #### C MP, TSH ####[facility] Zommrllpzy[address] [place], [place] [address]Dr. Soniya Chi TSHon 08-20-2022 TSH 6.050 uIU/mL Critically high 0.358-3.740 [facility] Comment on above: Performed By: #### C MP, TSH ####[facility] Kgnzjsxqwt2106 [place] [phone]. Soniya Chi US THYROIDon 08-20-2022 US THYROID Normal [facility] ECHOCARDIO M/2D COMPLETEon 0 08-19-2022 ECHOCARDIO M/2D COMPLETE Normal [facility] PROF 14(COMP METB)on 023 Albumin [Mass/Vol] 2.8 g/dL Critically low 3.4-5.0 [facility] Comment on above: Performed By: #### T TIFFANIE, CMP ####[facility] Ksdidztswy56[address] [place] [address]Dr. Soniya Chi Albumin/Globulin [Mass ratio] 0.9 {ratio} Normal [facility] Comment on above: Performed By: #### T TIFFANIE, CMP ####[facility] Ainxzijuxx1304 [place] [address]Dr. Soniya Chi ALP [Catalytic activity/Vol] 95 U/L Normal 46-116 [facility] Comment on above: Performed By: #### T TIFFANIE, CMP ####[facility] Iauwluialj6224 [place] [address]Dr. Soniya Chi ALT [Catalytic activity/Vol] 33 U/L Normal 14-59 [facility] Comment on above: Performed By: #### T TIFFANIE, CMP ####[facility] Bhsvvanazy0257 [place] [address]Dr. Soniya Chi Anion gap [Moles/Vol] 13.2 mmol/L Normal [facility] Comment on above: Performed By: #### T TIFFANIE, CMP ####[facility] Yfurpxltja6488 [place] [address]Dr. Soniya Chi AST [Catalytic activity/Vol] 25 U/L Normal 15-37 [facility] Comment on above: Performed By: #### T TIFFANIE, CMP ####[facility] Kesojjlqkz9120 [place] [address]Dr. Soniya Chi Bilirubin [Mass/Vol] 1.1 mg/dL Critically high 0.2-1.0 [facility] Comment on above: Performed By: #### T TIFFANIE, CMP ####[facility] Owzzhkjytf73[address] [place] [address]Dr. Soniya Chi Calcium [Mass/Vol] 9.4 mg/dL Normal 8.5-10.1 The [facility] Comment on above: Performed By: #### T SH, CMP ####[facility] Tgfxhdsgte[address] [place], [place] [address]Dr. Soniya Chi Chloride [Moles/Vol] 110 mmol/L Critically high 98-107 [facility] Comment on above: Performed By: #### T SH, CMP ####[facility] Lrrmgcnleh[address] [place], [place] [address]Dr. Soniya Chi CO2 [Moles/Vol] 27.9 mmol/L Normal 21.0-32.0 [facility] [place] [facility] Comment on above: Performed By: #### T TIFFANIE, CMP ####[facility] Ldktndlpug[address] [place], [place] [address]Dr. Soniya Chi Creatinine [Mass/Vol] 1.32 mg/dL Critically high 0.55-1.02 [facility] Comment on above: Performed By: #### T SH, CMP ####[facility] Dlkcgdklkt[address] [place], [place] [address]Dr. Soniya Chi EGFR-AF IRISH 49 mL/min/1.73m2 Critically low >=60 [facility] Comment on above: Performed By: #### T TIFFANIE, CMP ####[facility] Walpmesbot[address] [place], [place] [address]Dr. Soniya Chi EGFR-NON AF IRISH 40 mL/min/1.73m2 Critically low >=60 The [facility] Comment on above: Performed By: #### T SH, CMP ####[facility] Lwmlpgdjov20[address] [place], [place] [address]Dr. Soniya Chi Globulin (S) [Mass/Vol] 3.1 g/dL Normal [facility] Comment on above: Performed By: #### T SH, CMP ####[facility] Mqkjaxklxl[address] [place], [place] [address]Dr. Soniya Chi Glucose [Mass/Vol] 87 mg/dL Normal 74-106 The [facility] Comment on above: Performed By: #### T SH, CMP ####[facility] Gwrlptwjnf7742 [place] [address]Dr. Soniya Chi Potassium [Moles/Vol] 4.1 mmol/L Normal 3.5-5.1 [facility] Comment on above: Performed By: #### T SH, CMP ####[facility] Vmpztnrvif6001 [place] [id number]. Soniya Chi Protein [Mass/Vol] 5.9 g/dL Critically low 6.4-8.2 [facility] Comment on above: Performed By: #### T SH, CMP ####[facility] [facility] Wnscfhpmwp[address] [place], [place] [address]Dr. Soniya Chi Sodium [Moles/Vol] 147 mmol/L Critically high 136-145 [facility] Comment on above: Performed By: #### T SH, CMP ####[facility] Zjczfccdhb[address] [place], [place] [address]Dr. Soniya Alon Urea nitrogen [Mass/Vol] 21.0 mg/dL Critically high 7.0-18.0 [facility] Comment on above: Performed By: #### T SH, CMP ####[facility] Xhiysvolis[address] [place], [place] [address]Dr. Soniya Chi Urea nitrogen/Creatinine [Mass ratio] 15.9 mg/mg Normal [facility] Comment on above: Performed By: #### T SH, CMP ####[facility] Cujbvtzzuv[address] [place], [place] [address]Dr. Soniya Alon TSHon 08-19-2022 TSH 5.781 uIU/mL Critically high 0.358-3.740 [facility] Comment on above: Performed By: #### T SH, CMP ####[facility] Wymdzyqyxx8[address] [place], [place] [address]Dr. Soniya Chi CT STROKE HEAD WOon 08-19-[address] STROKE HEAD WO Normal The [facility] UA RANDOM W/MICROSCOPICon BACTERIA MODERATE Abnormal NONE SEEN The [facility] Comment on above: Performed By: #### U AMIC ####[facility] [address]tyifijdkj[address] [place] [id number]. Soniya Chi Bilirubin Ql (U) Negative Normal NEGATIVE The [facility] Comment on above: Performed By: #### U AMIC ####[facility] Totmnbpjqk[address] [place] [address]Dr. Soniya Chi CAST NONE SEEN Normal NONE SEEN The [facility] Comment on above: Performed By: #### U AMIC ####[facility] Lbzltdzwdo[address] [place] [address]Dr. Soniya Chi Clarity (U) CLEAR Normal CLEAR The [facility] Comment on above: Performed By: #### U AMIC ####[facility] Qaafvpaxhy[address] [place], [place] [address]Dr. Soniya Chi Color (U) RED Abnormal YELLOW The [facility] Comment on above: Performed By: #### U AMIC ####[facility] Arkfghdwfn30[address] [place], [place] [address]Dr. Soniya Chi Crystals LM Nom (Urine sed) NONE SEEN Normal NONE SEEN The [facility] Comment on above: Performed By: #### U AMIC ####[facility] Ikhgymfieh[address] [place], [place] [address]Dr. Soniya Chi Epithelial cells LM Ql (Urine sed) NONE SEEN Normal NONE SEEN /RARE The [facility] Comment on above: Performed By: #### U AMIC ####[facility] Vwooqwpqnu4[address] [place] [address]Dr. Soniya Chi Glucose Ql (U) Negative Normal NEGATIVE The [facility] Comment on above: Performed By: #### U AMIC ####[facility] Sgrrjtpufe[address] [place], [place] [address]Dr. Soniya Chi Hemoglobin Ql (U) LARGE Abnormal NEGATIVE The [facility] Comment on above: Performed By: #### U AMIC ####[facility] Dtyfmooznc4870[address] [place], [place] [address]Dr. Soniya Chi Ketones Ql (U) 40 mg/dl Abnormal NEGATIVE The [facility] Comment on above: Performed By: #### U AMIC ####[facility] Kpwiocvatp[address] [place], [place] [address]Dr. Soniya Chi LEUKOCYTES LARGE Abnormal NEGATIVE The [facility] Comment on above: Performed By: #### U AMIC ####[facility] [address]sf[address]gdhj[address] [place] [address]Dr. Soniya Chi MUCOUS NONE SEEN Normal NONE SEEN The [facility] Comment on above: Performed By: #### U AMIC ####[facility] Tqtoxnczvi[address] [place] [address]Dr. Soniya Chi Nitrite Ql (U) Positive Abnormal NEGATIVE The [facility] Comment on above: Performed By: #### U AMIC ####[facility] Bmjykegdgp8559[address] [place], [place] [address]Dr. Soniya Chi pH (U) 5.5 [pH] Normal 5-9 The [facility] Comment on above: Performed By: #### U AMIC ####[facility] Wuolxlkofc398[address] [place], [place] [address]Dr. Soniya Chi RBC (U) [#/Vol] /uL Abnormal 0-2 The [facility] Comment on above: Performed By: #### U AMIC ####[facility] Bxetkrvosf5[address] [place], [place] [address]Dr. Soniya Chi SPEC GRAVITY >=1.030 Abnormal 1.005-<=1.025 The [facility] Comment on above: Performed By: #### U AMIC ####[facility] Vojgcnzurn5639[address] [place], [place] [address]Dr. Soniya Chi UA PROTEIN 100 mg/dl Abnormal NEGATIVE/ TRACE The [facility] Comment on above: Performed By: #### U AMIC ####[facility] Hntkyjidtr[address] [place], [place] [address]Dr. Soniya Chi Urobilinogen Qn (U) 1.0 {Casimiro'U}/dL Normal 0.2 - 1. 0 The [facility] Comment on above: Performed By: #### U AMIC ####[facility] Vebtdyfomx97[address] [place], [place] [address]Dr. Soniya Chi WBC (U) [#/Vol] /uL Abnormal NONE SEEN The [facility] Comment on above: Performed By: #### U AMIC ####[facility] Ifkaggmxjl24[address] [place] [phone]. Soniya Chi CBC AUTO DIFFon 08-17-2022 BASO # 0.0 103/ul Normal 0.0-0.1 [facility] Comment on above: Performed By: #### C BC ####[facility] Yt[address]uyibso[address] [place] [address]Dr. Gypsyjuan Chi Basophils/100 WBC (Bld) 0.2 % Normal 0.2-2.0 The [facility] Comment on above: Performed By: #### C BC ####[facility] Chihpiqkek8[address] [place], [place] [address]Dr. Gypsyjuan Chi EO # 0.0 103/ul Normal 0.0-0.7 The [facility] Comment on above: Performed By: #### C BC ####[facility] Hpzfrzdimi697[address] [place], [place] [address]Dr. Soniya Chi Eosinophils/100 WBC (Bld) 0.6 % Critically low 0.9-7.0 [facility] Comment on above: Performed By: #### C BC ####[facility] Rczeepilph190[address] [place], [place] [address]Dr. Soniya Alon Erythrocyte distribution width (RBC) [Ratio] 15.1 % Critically high 11.0-15.0 [facility] Comment on above: Performed By: #### C BC ####[facility] Fckqiknzbr110[address] [place], [place] [address]Dr. Gypsyjuan Chi Hematocrit (Bld) [Volume fraction] 30.0 % Critically low 36.0-48.0 The [facility] Comment on above: Performed By: #### C BC ####[facility] Mnprmcsrwm1859[address] [place], [place] [address]Dr. Soniya Chi Hemoglobin (Bld) [Mass/Vol] 9.8 g/dL Critically low 12.0-16.0 [facility] Comment on above: Performed By: #### C BC ####[facility] Pbgwltzvow50[address] [place], [place] [address]Dr. Soniya Chi IG # 0.02 10e3/ul Normal 0.00-0.03 [facility] Comment on above: Performed By: #### C BC ####[facility] Mfbhmrbjnk[address] [place] [address]Dr. Soniya Chi IG % 0.4 % Normal 0.0-0.5 [facility] Comment on above: Performed By: #### C BC ####[facility] Jqqnjtkhsk[address] [place] [address]DrKarolina Soniya Chi LYMPH # 0.8 103/ul Critically low 1.2-3.8 [facility] Comment on above: Performed By: #### C BC ####[facility] Ojnkoiyyod35[address] [place] [address]DrKarolina Soniya Chi Lymphocytes/100 WBC (Bld) 16.1 % Critically low 20.5-60.0 [facility] Comment on above: Performed By: #### C BC ####[facility] Tjwjnjhbfm[address] [place], [place] [address]Dr. Soniya Chi MANUAL DIFF REQ NO Normal [facility] Comment on above: Performed By: #### C BC ####[facility] Eyqcyfslvm11[address] [place], [place] [address]Dr. Soniya Chi MCH (RBC) [Entitic mass] 30.3 pg Normal 26.7-34.0 [facility] Comment on above: Performed By: #### C BC ####[facility] Pfqpnksqvk5725[address] [place], [place] [address]Dr. Soniya Chi MCHC (RBC) [Mass/Vol] 32.7 g/dL Normal 29.9-35.2 [facility] Comment on above: Performed By: #### C BC ####[facility] Wavocnzbny[address] [place], [place] [address]DrKarolina Soniya Chi MCV (RBC) [Entitic vol] 92.9 fL Normal 81.0-99.0 [facility] Comment on above: Performed By: #### C BC ####[facility] Dyfwlbqeds6640[address] [place], [place] [address]DrKarolina Soniya Alon MONO # 0.4 103/ul Normal 0.3-0.8 [facility] Comment on above: Performed By: #### C BC ####[facility] Hzhpixtddi5935 [place] [address]Dr. Soniya Chi Monocytes/100 WBC (Bld) 8.1 % Normal 1.7-12.0 [facility] Comment on above: Performed By: #### C BC ####[facility] Afwfvcnhsb5672 [place] [address]Dr. Soniya Chi NEUT # 3.6 103/ul Normal 1.4-6.5 [facility] Comment on above: Performed By: #### C BC ####[facility] Aqgvohkysa55[address] [place] [address]Dr. Soniya Chi Neutrophils/100 WBC (Bld) 74.6 % Normal 43.0-75.0 [facility] Comment on above: Performed By: #### C BC ####[facility] Babgohqegw48[address] [place] [phone]. Soniya Chi Platelet mean volume (Bld) [Entitic vol] 10.6 fL Normal 9.5-13.5 [facility] Comment on above: Performed By: #### C BC ####[facility] Fainjasbgh84[address] [place] [address]Dr. Soniya Chi PLT 116 103/ul Critically low 150-450 [facility] Comment on above: Performed By: #### C BC ####[facility] Numaukwzti1871 [place] [address]Dr. Soniya Chi RBC 3.23 106/ul Critically low 4.20-5.40 The [facility] Comment on above: Performed By: #### C BC ####[facility] Tnfsumvisp4706 [place] [address]Dr. Soniya Chi WBC 4.8 103/ul Normal 4.0-11.0 The [facility] Comment on above: Performed By: #### C BC ####[facility] Csfvanxddh5[address] [place] [address]Dr. Soniya Chi CULTURE URINEon 08-17-2022 CULTURE URINE Normal The [facility] Comment on above: Performed By: #### U RCX ####[facility] Ovacipcucb[address] [place] [address]Dr. Soniya Chi ACETONE SERUMon 08-16-2022 ACETONE Negative Normal NEGATIVE [facility] Comment on above: Performed By: #### A CETON ####[facility] Ptddkuqttw9[address] [place], [place] [address]Dr. Soniya Chi AMMONIAon 08-16-2022 Ammonia (P) [Mass/Vol] ug/dL Critically low 11-32 [facility] Comment on above: Performed By: #### A MM ####[facility] Ysgnyqpkyw0614[address] [place], [place] [address]Dr. Soniya Alon CBC AUTO DIFFon 08-16-2022 BASO # 0.0 103/ul Normal 0.0-0.1 [facility] Comment on above: Performed By: #### C BC ####[facility] Qrwuwtkylc1814[address] [place], [place] [address]Dr. Soniya Chi Basophils/100 WBC (Bld) 0.2 % Normal 0.2-2.0 [facility] Comment on above: Performed By: #### C BC ####[facility] Hvrmecedbr392[address] [place], [place] [address]Dr. Gypsyjuan Chi EO # 0.1 103/ul Normal 0.0-0.7 [facility] Comment on above: Performed By: #### C BC ####[facility] Ibekkpawog6024[address] [place], [place] [address]Dr. Soniya Chi Eosinophils/100 WBC (Bld) 1.0 % Normal 0.9-7.0 The [facility] Comment on above: Performed By: #### C BC ####[facility] Iikdsvslip2718[address] [place], [place] [address]Dr. Soniya Chi Erythrocyte distribution width (RBC) [Ratio] 15.3 % Critically high 11.0-15.0 [facility] Comment on above: Performed By: #### C BC ####[facility] Csqvcblmrg[address] [place], [place] [address]Dr. Soniya Chi Hematocrit (Bld) [Volume fraction] 31.2 % Critically low 36.0-48.0 [facility] Comment on above: Performed By: #### C BC ####[facility] Rmucumyubr[address] [place] [address]DrKarolina Chi Hemoglobin (Bld) [Mass/Vol] 10.3 g/dL Critically low 12.0-16.0 [facility] Comment on above: Performed By: #### C BC ####[facility] Akbtqxfvca[address] [place], [place] [address]DrKarolina Chi IG # 0.01 10e3/ul Normal 0.00-0.03 [facility] Comment on above: Performed By: #### C BC ####[facility] Zypxqlucun[address] [place], [place] [address]DrKarolina Chi IG % 0.2 % Normal 0.0-0.5 [facility] Comment on above: Performed By: #### C BC ####[facility] Qfecdwpgyu529[address] [place], [place] [address]DrKarolina Chi LYMPH # 0.8 103/ul Critically low 1.2-3.8 [facility] Comment on above: Performed By: #### C BC ####[facility] Nwjzqlgbvn472[address] [place], [place] [address]DrKarolina Chi Lymphocytes/100 WBC (Bld) 14.5 % Critically low 20.5-60.0 [facility] Comment on above: Performed By: #### C BC ####[facility] Ywjzwpngqv45[address] [place], [place] [address]DrKarolina Chi MANUAL DIFF REQ NO Normal [facility] Comment on above: Performed By: #### C BC ####[facility] Dvfikpkytt[address] [place], [place] [address]DrKarolina Chi MCH (RBC) [Entitic mass] 30.7 pg Normal 26.7-34.0 [facility] Comment on above: Performed By: #### C BC ####[facility] Bgawnnbpno15[address] [place], [place] [address]DrKarolina Chi MCHC (RBC) [Mass/Vol] 33.0 g/dL Normal 29.9-35.2 [facility] Comment on above: Performed By: #### C BC ####[facility] Toqrzelcub39[address] [place] [address]DrKarolina Chi MCV (RBC) [Entitic vol] 93.1 fL Normal 81.0-99.0 [facility] Comment on above: Performed By: #### C BC ####[facility] Ywkgtuvlml4351 [place] [address]DrKarolina Chi MONO # 0.3 103/ul Normal 0.3-0.8 [facility] Comment on above: Performed By: #### C BC ####[facility] Iemgyqjcxu28[address] [place] [address]DrKarolina hCi Monocytes/100 WBC (Bld) 5.7 % Normal 1.7-12.0 [facility] Comment on above: Performed By: #### C BC ####[facility] Ptywmdajvg[address] [place], [place] [address]DrKarolina Chi NEUT # 4.6 103/ul Normal 1.4-6.5 [facility] Comment on above: Performed By: #### C BC ####[facility] Vpmnmemsni[address] [place], [place] [address]DrKarolina Chi Neutrophils/100 WBC (Bld) 78.4 % Critically high 43.0-75.0 The [facility] Comment on above: Performed By: #### C BC ####[facility] Jnrmuxzsmm[address] [place], [place] [address]DrKarolina Chi Platelet mean volume (Bld) [Entitic vol] 10.3 fL Normal 9.5-13.5 The [facility] Comment on above: Performed By: #### C BC ####[facility] Cacujjwnnk[address] [place], [place] [address]DrKarolina Chi PLT 123 103/ul Critically low 150-450 The [facility] Comment on above: Performed By: #### C BC ####[facility] Rvtzulquvv9544 [place] [phone] Chi RBC 3.35 106/ul Critically low 4.20-5.40 [facility] Comment on above: Performed By: #### C BC ####[facility] Nkgcidoloy2324 [place] [phone]. Soniya hCi WBC 5.8 103/ul Normal 4.0-11.0 [facility] Comment on above: Performed By: #### C BC ####[facility] Edswizohxl5196 [place] [phone]. Soniya Chi CPKon 08-16-2022 CK [Catalytic activity/Vol] 32 U/L Normal 26-192 [facility] Comment on above: Performed By: #### T SH, CK, HSTROPN, CMP ####[facility] Qxjraukple67[address] [place] [phone]. Soniya Chi CT STROKE HEAD WOon 08-17-[address] STROKE HEAD WO Normal The [facility] CULTURE BLOODon 08-16-2022 Microscopic examination of blood, culture Culture Observations: NO GROWTH AT 5 DAYS. Normal [facility] Comment on above: Performed By: #### B LDCX1 ####[facility] Tycadddjna28[address] [place] [phone]. Soniya Chi Microscopic examination of blood, culture Culture Observations: NO GROWTH AT 5 DAYS. Normal [facility] Comment on above: Performed By: #### B LDCX2 ####[facility] Gxufpqwbjc0352 [place] [phone]. Soniya Cih Covid-19 PCR (CVDTB)on 07-31 SARS-CoV-2 (COVID-19) RNA DORIAN+probe Ql (Unsp spec) Not detected Normal NOT DETECTED The [facility] Comment on above: Result Comment: [...] for this test is supported by the [place] [employer] Service's declaration that [...] be used). Performed By: #### C VDTB ####[facility] Zbxdqqvavm[address] [place], [place] [address]Dr. Soniya [facility] DRUG SCREEN RAPID (URINE)on 08-16-2022 AMP Negative Normal NEGATIVE [facility] Comment on above: Performed By: #### E RUR, DRUGRPD ####[facility] Dborzebqyf125[address] [place], [place] [address]Dr. Soniya Chi BAR Negative Normal NEGATIVE The [facility] Comment on above: Performed By: #### E RUR, DRUGRPD ####[facility] Otnyrnffyl[address] [place], [place] [address]Dr. juan [facility] BUP Negative Normal NEGATIVE The [facility] Comment on above: Performed By: #### E RUR, DRUGRPD ####[facility] Hcmumsomtn08[address] [place], [place] [address]Dr. juan Chi BZO Negative Normal NEGATIVE The [facility] Comment on above: Performed By: #### E RUR, DRUGRPD ####[facility] Ksqdshcqtb448[address] [place], [place] [address]Dr. [facility] MARIAH Negative Normal NEGATIVE The [facility] Comment on above: Performed By: #### E RUR, DRUGRPD ####[facility] Jfbntqjqqw99[address] [place], [place] [address]Dr. [facility] CUT-OFFS SEE BELOW Normal The [facility] Comment on above: Result Comment: [...] ng/mL Performed By: #### E RUR, DRUGRPD ####[facility] Fatfaavoqg[address] [place], [place] [address]Dr. juan Chi DRUG CUT HEADER DRUG CLASS TEST SYSTEM CUT-OFF CONCENTRATIONS ARE FOLLOWS: Normal The [facility] Comment on above: Performed By: #### E RUR, DRUGRPD ####[facility] Bbwpevcwqg[address] [place], [place] [address]Dr. Soniya Chi mAMP Negative Normal NEGATIVE The [facility] Comment on above: Performed By: #### E RUR, DRUGRPD ####[facility] Rqkeucdxeg75[address] [place], [place] [address]Dr. Soniya Chi MTD Negative Normal NEGATIVE The [facility] Comment on above: Performed By: #### E RUR, DRUGRPD ####[facility] Mfyzhberjb370[address] [place], [place] [address]Dr. Soniya Chi OPI Negative Normal NEGATIVE The [facility] Comment on above: Performed By: #### E RUR, DRUGRPD ####[facility] Kanfryoibx9[address] [place], [place] [address]Dr. Soniya Chi OXY Negative Normal NEGATIVE The [facility] Comment on above: Performed By: #### E RUR, DRUGRPD ####[facility] Ykruzatevg[address] [place], [place] [address]Dr. Soniya Chi PCP Negative Normal NEGATIVE The [facility] Comment on above: Performed By: #### E RUR, DRUGRPD ####[facility] Btdvvtxagb[address] [place], [place] [address]Dr. Soniya Chi PPX Negative Normal NEGATIVE The [facility] Comment on above: Performed By: #### E RUR, DRUGRPD ####[facility] Wdlnoqdmzw26[address] [place], [place] [address]Dr. Soniya Chi TCA Negative Normal NEGATIVE The [facility] Comment on above: Performed By: #### E RUR, DRUGRPD ####[facility] Airzmpyccr[address] [place], [place] [address]Dr. Soniya Chi THC Negative Normal NEGATIVE [facility] Comment on above: Performed By: #### E RUR, DRUGRPD ####[facility] Gkpgwucocy[address] [place], [place] [address]Dr. Soniya Chi ER URINE PROFILEon 3 Bilirubin Ql (U) Negative Normal NEGATIVE [facility] Comment on above: Performed By: #### E RUR, DRUGRPD ####[facility] Ftvnemmvue70[address] [place], [place] [address]Dr. Soniya Chi Clarity (U) CLEAR Normal CLEAR [facility] Comment on above: Performed By: #### E RUR, DRUGRPD ####[facility] Owwhikzsby[address] [place], [place] [address]Dr. Snoiya Chi Color (U) LT. YELLOW Normal YELLOW [facility] Comment on above: Performed By: #### E RUR, DRUGRPD ####[facility] Tsmembxcjn[address] [place], [place] [address]Dr. Soniya Alon ERUAHD A micrscopic examination will be performed if indicated. Normal [facility] Comment on above: Performed By: #### E RUR, DRUGRPD ####[facility] Oeibhheppr0[address] [place], [place] [address]Dr. Soniya Chi Glucose Ql (U) Negative Normal NEGATIVE [facility] Comment on above: Performed By: #### E RUR, DRUGRPD ####[facility] Bqwpvkaapx80[address] [place], [place] [address]Dr. Soniya Chi Hemoglobin Ql (U) Negative Normal NEGATIVE The [facility] Comment on above: Performed By: #### E RUR, DRUGRPD ####[facility] Ueiwdfxpgz[address] [place], [place] [address]Dr. Gypsyjuan Chi Ketones Ql (U) Negative Normal NEGATIVE [facility] Comment on above: Performed By: #### E RUR, DRUGRPD ####[facility] Ttkectlsdg[address] [place] [address]Dr. Soniya Chi LEUKOCYTES Negative Normal NEGATIVE The [facility] Comment on above: Performed By: #### Benoit CARTER DRUGRPD ####[facility] Ttdbsjwrpg0787 [place] [address]Dr. Soniya Chi Nitrite Ql (U) Negative Normal NEGATIVE [facility] Comment on above: Performed By: #### Benoit CARTER DRUGRPD ####[facility] Aoqqgrtqdb58[address] [place] [address]Dr. Soniya Chi pH (U) 7.0 [pH] Normal 5-9 [facility] Comment on above: Performed By: #### Benoit CARTER DRUGRPD ####[facility] I[address]amhxpscb[address] [place], [place] [address]Dr. Gypsyjuan Chi SPEC GRAVITY 1.005 Normal 1.005-<=1.025 [facility] Comment on above: Performed By: #### Benoit CARTER DRUGRPD ####[facility] Egfymwqbsb[address] [place], [place] [address]Dr. Gypsyjuan Chi UA PROTEIN Negative Normal NEGATIVE/ TRACE [facility] Comment on above: Performed By: #### Benoit CARTER DRUGRPD ####[facility] Ruhkapaqnm[address] [place], [place] [address]Dr. Gypsyjuan Chi UR MICRO IND NOT INDICATED Normal [facility] Comment on above: Performed By: #### Benoit CARTER DRUGRPD ####[facility] [address]vwhljkkz[address] [place], [place] [address]Dr. Soniya Alon Urobilinogen Qn (U) 0.2 {Casimiro'U}/dL Normal 0.2 - 1. 0 The [facility] Comment on above: Performed By: #### Benoit CARTER DRUGRPD ####[facility] Lwuwhxrqgb[address] [place], [place] [address]Dr. Gypsyjuan Chi FREE T3on 08-16-2022 FREE T3 2.61 pg/mlL Normal 2.18-3.98 [facility] Comment on above: Performed By: #### F T3 ####[facility] Btgdrrthqm7234 [place] [address]Dr. Soniya Chi FREE T4on 08-16-2022 Free T4 [Mass/Vol] 0.82 ng/dL Normal 0.76-1.46 [facility] Comment on above: Performed By: #### F T4 ####[facility] Uyuocscovw[address] [place] [address]Dr. Soniya Chi LACTATE/LACTIC ACIDon 2022 Lactate [Moles/Vol] 1.1 mmol/L Normal 0.4-2.0 [facility] Comment on above: Performed By: #### L ACT ####[facility] Plnueexafk[address] [place], [place] [address]Dr. Soniya Chi PH VENOUS BLOODon 08-16-2022 PCO2 VENOUS 58.3 mmHg Critically high 40.0-52.[address] [facility] Comment on above: Performed By: #### P HVEN ####[facility] Cveprppjfc[address] [place], [place] [address]Dr. Soniya Chi pH VENOUS 7.365 Normal 7.330-7.430 [facility] Comment on above: Performed By: #### P HVEN ####[facility] Vlstxnvwqx0[address] [place], [place] [address]Dr. Soniya Chi PROF 14(COMP METB)on 023 Albumin [Mass/Vol] 3.6 g/dL Normal 3.4-5.0 [facility] Comment on above: Performed By: #### T SH, CK, HSTROPN, CMP ####[facility] Jynfjjfoso2210 [place] [address]Dr. Soniya Chi Albumin/Globulin [Mass ratio] 1.0 {ratio} Normal The [facility] Comment on above: Performed By: #### T SH, CK, HSTROPN, CMP ####[facility] Espuqvybxz9224 [place] [address]Dr. Soniya Chi ALP [Catalytic activity/Vol] 115 U/L Normal 46-116 [facility] Comment on above: Performed By: #### T SH, CK, HSTROPN, CMP ####[facility] Kplyvgioyb4520 [place] [address]Dr. Soniya Chi ALT [Catalytic activity/Vol] 48 U/L Normal 14-59 The [facility] Comment on above: Performed By: #### T SH, CK, HSTROPN, CMP ####[facility] Dbvlcvrvmw6807 [place] [address]Dr. Soniya Chi Anion gap [Moles/Vol] 9.7 mmol/L Normal [facility] Comment on above: Performed By: #### T SH, CK, HSTROPN, CMP ####[facility] Uvvvebpiba3653 [place] [address]Dr. Soniya Chi AST [Catalytic activity/Vol] 26 U/L Normal 15-37 The [facility] Comment on above: Performed By: #### T SH, CK, HSTROPN, CMP ####[facility] Upwifaxour3966 [place] [address]Dr. Soniya Chi Bilirubin [Mass/Vol] 0.7 mg/dL Normal 0.2-1.0 [facility] Comment on above: Performed By: #### T SH, CK, HSTROPN, CMP ####[facility] Skfaetyxxl5463 [place] [address]Dr. Soniya Chi Calcium [Mass/Vol] 10.1 mg/dL Normal 8.5-10.1 [facility] Comment on above: Performed By: #### T SH, CK, HSTROPN, CMP ####[facility] Eyjjrwqkeq5092 [place] [address]Dr. Soniya Chi Chloride [Moles/Vol] 104 mmol/L Normal 98-107 The [facility] Comment on above: Performed By: #### T SH, CK, HSTROPN, CMP ####[facility] Eqkauuyxxz7053 [place] [address]Dr. Soniya Chi CO2 [Moles/Vol] 34.6 mmol/L Critically high 21.0-32.0 [facility] Comment on above: Performed By: #### T SH, CK, HSTROPN, CMP ####[facility] Nspxnrinul2629 [place] [address]Dr. Soniya Chi Creatinine [Mass/Vol] 1.27 mg/dL Critically high 0.55-1.02 The [facility] Comment on above: Performed By: #### T SH, CK, HSTROPN, CMP ####[facility] Uuamsahxld7456 [place] [address]Dr. Soniya Chi EGFR-AF IRISH 51 mL/min/1.73m2 Critically low >=60 The [facility] Comment on above: Performed By: #### T SH, CK, HSTROPN, CMP ####[facility] Uoqphwakyu1430 [place] [address]Dr. Soniya Chi EGFR-NON AF IRISH 42 mL/min/1.73m2 Critically low >=60 The [facility] Comment on above: Performed By: #### T SH, CK, HSTROPN, CMP ####[facility] Tloksjhrrg8198 [place] [address]Dr. Soniya Chi Globulin (S) [Mass/Vol] 3.6 g/dL Normal The [facility] Comment on above: Performed By: #### T SH, CK, HSTROPN, CMP ####[facility] Mnrgrjhafw[address] [place], [place] [address]Dr. Soniya Chi Glucose [Mass/Vol] 100 mg/dL Normal 74-106 [facility] Comment on above: Performed By: #### T SH, CK, HSTROPN, CMP ####[facility] Qemicyorsh6655 [place] [address]Dr. Soniya Chi Potassium [Moles/Vol] 4.3 mmol/L Normal 3.5-5.1 The [facility] Comment on above: Performed By: #### T SH, CK, HSTROPN, CMP ####[facility] Yqglodewub[address] [place], [place] [address]Dr. Soniya Chi Protein [Mass/Vol] 7.2 g/dL Normal 6.4-8.2 [facility] Comment on above: Performed By: #### T SH, CK, HSTROPN, CMP ####[facility] Yadbgshdjs5601 [place] [address]Dr. Soniya Chi Sodium [Moles/Vol] 144 mmol/L Normal 136-145 The [facility] Comment on above: Performed By: #### T SH, CK, HSTROPN, CMP ####[facility] Klrfsuljhp1259 [place] [address]Dr. Soniya Chi Urea nitrogen [Mass/Vol] 24.0 mg/dL Critically high 7.0-18.0 [facility] Comment on above: Performed By: #### T SH, CK, HSTROPN, CMP ####[facility] Izndpizvnc1141 [place] [address]Dr. Soniya Chi Urea nitrogen/Creatinine [Mass ratio] 18.9 mg/mg Normal [facility] Comment on above: Performed By: #### T SH, CK, HSTROPN, CMP ####[facility] Vamywerimg[address] [place], [place] [address]Dr. Soniya Chi PROTIMEon 08-16-2022 INR Coag (PPP) [Relative time] 0.97 {INR} Normal [facility] Comment on above: Performed By: #### P TT, PT ####[facility] Slijzwvrdd64[address] [place], [place] [address]Dr. Soniya Chi INR GUIDELINES SEE BELOW Normal The [facility] Comment on above: Result Comment: SHARON RED INR: 2.0 - 3.0 CONDITIONS NOT LISTED BELOW 2.5 - 3.5 FOR PROSTHETIC HEART VALVE REPLACEMENT 2.5 - 3.5 RECURRENT THROMBOSIS Performed By: #### P TT, PT ####[facility] Mhbjcapakw[address] [place], [place] [address]Dr. Soniya Chi PT Coag (PPP) [Time] 10.3 s Normal 9.0-11.6 The [facility] Comment on above: Performed By: #### P TT, PT ####[facility] Qyncskqhlj[address] [place], [place] [address]Dr. Soniya Chi PTTon 08-16-2022 aPTT Coag (Bld) [Time] 33.1 s Normal 22.3-36.2 The [facility] Comment on above: Performed By: #### P TT, PT ####[facility] Pqdzfslpsj2579 [place] [address]Dr. Soniya Chi TROPONIN, HIGH SENSITIVITYon 08-16-2022 HSTROP 9.8 pg/mL Normal 4.0-51.3 The [facility] Comment on above: Result Comment: CUT- OFF POINTS HAVE BEEN ESTABLISHED BASED ON THE FOURTH UNIVERSAL DEFINITIONS OF MYOCARDIALINFARCTION. THE UPPER REFERENCE LIMIT (URL) OF TROPONIN, DEFINED THE 99TH PERCENTILE OFcTnI DISTRIBUTION IN A REFERENCE POPULATION, HAS BEEN CONFIRMED THE DECISION THRESHOLDFOR MT DIAGNOSIS. Performed By: #### T SH, CK, HSTROPN, CMP ####[facility] Ighsuulgrb0765 [place] [address]Dr. Soniya Chi TSHon 08-16-2022 TSH 7.844 uIU/mL Critically high 0.358-3.740 [facility] Comment on above: Performed By: #### T SH, CK, HSTROPN, CMP ####[facility] Tgpgucqvxz[address] [place], [place] [address]Dr. Soniya Chi XR CHEST 1 Von 08-16-2022 XR CHEST 1 V Normal [facility] UA (CLEAN/CATCH) HIGHBALLER/MICRO I F IND.on 08-15-2022 Bilirubin Ql (U) Negative Normal NEGATIVE [facility] Comment on above: Performed By: #### U ACSLUIS ICRO ####[facility] Nnscyhpzkk[address] [place], [place] [address]Dr. Soniya Chi Clarity (U) CLEAR Normal CLEAR [facility] Comment on above: Performed By: #### U ACSLUIS ICRO ####[facility] [address]jilmbphvq[address] [place], [place] [address]Dr. Soniya Chi Color (U) LT. YELLOW Normal YELLOW [facility] Comment on above: Performed By: #### U ACSLUIS UMICRO ####[facility] Mjuzvqczax1879 [place] [address]Dr. Soniya Chi Glucose Ql (U) Negative Normal NEGATIVE The [facility] Comment on above: Performed By: #### U ACSIND, UMICRO ####[facility] Rfgfuhkkbd3762 [place] [address]Dr. Soniya Chi Hemoglobin Ql (U) Negative Normal NEGATIVE The [facility] Comment on above: Performed By: #### U ACSLUIS, UMICRO ####[facility] Htkntkfyby9785 [place] [address]Dr. Soniya Chi Ketones Ql (U) Negative Normal NEGATIVE The [facility] Comment on above: Performed By: #### U ACSLUIS UMICRO ####[facility] Eqeahrvmse7[address] [place], [place] [address]Dr. Soniya Chi LEUKOCYTES MODERATE Abnormal NEGATIVE The [facility] Comment on above: Performed By: #### U ACSLUIS UMICRO ####[facility] Eiqmuiwkxc0750 [place] [address]Dr. Soniya Chi Nitrite Ql (U) Negative Normal NEGATIVE The [facility] Comment on above: Performed By: #### U ACSLUIS UMICRO ####[facility] Ddjbdmibgc4[address] [place], [place] [address]Dr. Soniya Chi pH (U) 5.5 [pH] Normal 5-9 The [facility] Comment on above: Performed By: #### U ACSLUIS UMICRO ####[facility] Qmercwjegp[address] [place], [place] [address]Dr. Soniya Chi SPEC GRAVITY <=1.005 Abnormal 1.005-<=1.025 The [facility] Comment on above: Performed By: #### U ACSLUIS UMICRO ####[facility] Licuwxukxg[address] [place], [place] [address]Dr. Soniya Chi UA PROTEIN Negative Normal NEGATIVE/ TRACE The [facility] Comment on above: Performed By: #### U ACSLUIS UMICRO ####[facility] Yjxgfazjcg[address] [place], [place] [address]Dr. Soniya Chi UR MICRO IND INDICATED Normal The [facility] Comment on above: Performed By: #### U ACSLUIS UMICRO ####[facility] Xitfgcrywe[address] [place], [place] [address]Dr. Soniya Chi Urobilinogen Qn (U) 0.2 {Casimiro'U}/dL Normal 0.2 - 1. 0 The [facility] Comment on above: Performed By: #### DENIZ RAORO ####[facility] Qtdzcfyhdb9822 [place] [address]Dr. Soniya Chi URINE MICROSCOPIC ONLYon BACTERIA TRACE Abnormal NONE SEEN The [facility] Comment on above: Performed By: #### LUIS RAOICRO ####[facility] Eavzcvzqit1874 [place] [address]Dr. Soniya Chi Bacteria identified Cx Nom (U) INDICATED Normal The [facility] Comment on above: Performed By: #### DENIZ RAORO ####[facility] Qqraetrnde2637 [place] [address]Dr. Soniya Chi CAST NONE SEEN Normal NONE SEEN The [facility] Comment on above: Performed By: #### DENIZ RAORO ####[facility] Ftdkqqsskv9469 [place] [address]Dr. Soniya Chi Crystals LM Nom (Urine sed) NONE SEEN Normal NONE SEEN The [facility] Comment on above: Performed By: #### DENIZ RAORO ####[facility] Wschbugtqi4360 [place] [address]Dr. Soniya Chi Epithelial cells LM Ql (Urine sed) RARE Normal NONE SEEN /RARE The [facility] Comment on above: Performed By: #### LUIS RAOICRO ####[facility] Txeucztvuy9701 [place] [address]Dr. Soniya Chi MUCOUS NONE SEEN Normal NONE SEEN The [facility] Comment on above: Performed By: #### LUIS RAOICRO ####[facility] Vsgwvtuyou7099 [place] [address]Dr. Soniya Chi RBC NONE SEEN Abnormal 0-2 The [facility] Comment on above: Performed By: #### U LUIS ALFORDICRO ####[facility] Xczvqhqsyu7406 [place] [address]Dr. Soniya Chi WBC 5-10 Abnormal NONE SEEN The [facility] Comment on above: Performed By: #### U ACSMARCOS SMITH ####[facility] Vxsxefqchd3507 [place] [address]Dr. Soniya Chi Lab Reportson 08-14-2022 Lab Reports [id number]#[id number]:[address] [facility] Physician Referralon 023 Physician Referral [id number]#[id number]:[address] [facility] CBC AUTO DIFFon 08-13-2022 BASO # 0.0 103/ul Normal 0.0-0.1 The [facility] Comment on above: Performed By: #### C BC ####[facility] Ldrzicjcin2787 [place] [address]Dr. Soniya Chi Basophils/100 WBC (Bld) 0.2 % Normal 0.2-2.0 The [facility] Comment on above: Performed By: #### C BC ####[facility] Gaerllyikx7840 [place] [address]Dr. Soniya Chi EO # 0.1 103/ul Normal 0.0-0.7 The [facility] Comment on above: Performed By: #### C BC ####[facility] Iszuibvucb5907 [place] [address]Dr. Soniya Chi Eosinophils/100 WBC (Bld) 1.0 % Normal 0.9-7.0 [facility] Comment on above: Performed By: #### C BC ####[facility] Ovcujmpico8428 [place] [address]Dr. Soniya Chi Erythrocyte distribution width (RBC) [Ratio] 15.1 % Critically high 11.0-15.0 The [facility] Comment on above: Performed By: #### C BC ####[facility] Zufnfprkis5569 [place] [address]Dr. Soniya Chi Hematocrit (Bld) [Volume fraction] 31.1 % Critically low 36.0-48.0 The [facility] Comment on above: Performed By: #### C BC ####[facility] Xlwzwwunlw1241 [place] [address]Dr. Soniya Chi Hemoglobin (Bld) [Mass/Vol] 10.2 g/dL Critically low 12.0-16.0 The [facility] Comment on above: Performed By: #### C BC ####[facility] Poemyrqkqz5559 [place] [address]Dr. Soniya Chi IG # 0.01 10e3/ul Normal 0.00-0.03 [facility] Comment on above: Performed By: #### C BC ####[facility] Vdysvabyff1130 [place] [address]Dr. Soniya Chi IG % 0.2 % Normal 0.0-0.5 The [facility] Comment on above: Performed By: #### C BC ####[facility] [address]escoipjht[address] [place], [place] [address]Dr. Soniya Chi LYMPH # 1.1 103/ul Critically low 1.2-3.8 The [facility] Comment on above: Performed By: #### C BC ####[facility] Qsfbiibxqn[address] [place], [place] [address]Dr. Soniya Chi Lymphocytes/100 WBC (Bld) 22.5 % Normal 20.5-60.0 The [facility] Comment on above: Performed By: #### C BC ####[facility] Ktjlnjmjsy6473 [place] [address]Dr. Soniya Chi MANUAL DIFF REQ NO Normal [facility] Comment on above: Performed By: #### C BC ####[facility] [address]jbkisqjyw[address] [place], [place] [address]Dr. Soniya Chi MCH (RBC) [Entitic mass] 30.5 pg Normal 26.7-34.0 The [facility] Comment on above: Performed By: #### C BC ####[facility] Gwyvvysgce[address] [place], [place] [address]Dr. Soniya Chi MCHC (RBC) [Mass/Vol] 32.8 g/dL Normal 29.9-35.2 The [facility] Comment on above: Performed By: #### C BC ####[facility] Kgeungdqkq2576 [place] [address]Dr. Soniya Chi MCV (RBC) [Entitic vol] 93.1 fL Normal 81.0-99.0 The [facility] Comment on above: Performed By: #### C BC ####[facility] Jbeczdpvns4442 [place] [address]Dr. Soniya Chi MONO # 0.3 103/ul Normal 0.3-0.8 The [facility] Comment on above: Performed By: #### C BC ####[facility] Jinjxbayxc2906 [place] [address]Dr. Soniya Chi Monocytes/100 WBC (Bld) 6.6 % Normal 1.7-12.0 The [facility] Comment on above: Performed By: #### C BC ####[facility] Hfayucxhiw8253 [place] [address]Dr. Soniya Chi NEUT # 3.5 103/ul Normal 1.4-6.5 The [facility] Comment on above: Performed By: #### C BC ####[facility] Hebluofwxd7239 [place] [address]Dr. Soniya Chi Neutrophils/100 WBC (Bld) 69.5 % Normal 43.0-75.0 The [facility] Comment on above: Performed By: #### C BC ####[facility] Ikxerkwdlm8586 [place] [address]Dr. Soniya Chi Platelet mean volume (Bld) [Entitic vol] 10.3 fL Normal 9.5-13.5 The [facility] Comment on above: Performed By: #### C BC ####[facility] Sernpbafhr7015 [place] [address]Dr. Soniya Chi PLT 116 103/ul Critically low 150-450 The [facility] Comment on above: Performed By: #### C BC ####[facility] Kcqgcxgmgs2249 [place] [address]Dr. Soniya Chi RBC 3.34 106/ul Critically low 4.20-5.40 The [facility] Comment on above: Performed By: #### C BC ####[facility] Ofhbahzsfi3798 [place], [place] [address]Sh. Soniya Chi WBC 5.0 103/ul Normal 4.0-11.0 The [facility] Comment on above: Performed By: #### C BC ####[facility] Vfcvfdzabl2005 [place], [place] [address]Ea. 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 Ordered: [facility] External Ambulatory Referral 3. Anxiety disorder (F41.9: Anxiety disorder, unspecified) Secondary to the psychosis and memory loss. 4. HTN (hypertension) (I10: Essential (primary) hypertension) Controlled continue bisoprol and low salt diet wioth exercise 5. Spasm of muscle (M62.838: Other muscle spasm) Possible cause of gait disordfer, medicine something neurological will refer to neurology. Ordered: [facility] External Ambulatory Referral Other fatigue (R53.83: Other fatigue) Secondary to all of the abover. Ordered: Basic Metabolic Panel [facility] External Ambulatory Referral Follow-up No qualifying data [...] and adenoidectomy. Medications amitriptyline 10 mg Tab bisoprolol-hydrochl orothiazide 2.5 mg-6.25 mg Tab, 1 tab(s), Oral, Daily bisoprolol-hydrochl orothiazide 2.5 mg-6.25 mg Tab, Not taking: duplicate [...] Immunizations Vaccin (more content not included)... Normal [facility] Comment on above: Result Comment: Elec tronically Signed By: FANNY ROPER, MELVA Laboy\.br\Date and Time Signed: 08/13/22 15:10 EDT LIVER PROFILEon 08-13-2022 Albumin [Mass/Vol] 3.6 g/dL Normal 3.4-5.0 [facility] Comment on above: Performed By: #### Yue HA BMP ####[facility] [address]zbszvsztx[address] [place], [place] [address]DrKarolina Chi Albumin/Globulin [Mass ratio] 1.0 {ratio} Normal [facility] Comment on above: Performed By: #### Yue HA BMP ####[facility] Oealkffvxq7059 [place] [address]Dr. Soniya Chi ALP [Catalytic activity/Vol] 111 U/L Normal 46-116 [facility] Comment on above: Performed By: #### Yue HA BMP ####[facility] Qbgocgsomr7785 [place] [address]DrKarolina Chi ALT [Catalytic activity/Vol] 46 U/L Normal 14-59 [facility] Comment on above: Performed By: #### L IVKATHY, BMP ####[facility] Rwjbadwkwe[address] [place], [place] [address]Dr. Soniya Chi AST [Catalytic activity/Vol] 17 U/L Normal 15-37 [facility] Comment on above: Performed By: #### L IVKATHY, BMP ####[facility] Czyaaooktr[address] [place], [place] [address]Dr. Soniya Chi BILI, CONJUGATED 0.1 mg/dL Normal 0.0-0.[address] [facility] Comment on above: Performed By: #### L IVKATHY, BMP ####[facility] Crlnjbgwfd[address] [place], [place] [address]Dr. Soniya Chi Bilirubin [Mass/Vol] 0.7 mg/dL Normal 0.2-1.0 [facility] Comment on above: Performed By: #### L LELAND, BMP ####[facility] Kporixpiqr[address] [place], [place] [address]Dr. Soniya Chi Globulin (S) [Mass/Vol] 3.5 g/dL Normal [facility] Comment on above: Performed By: #### L IVKATHY, BMP ####[facility] Kjwlvjkour[address] [place], [place] [address]Dr. Soniya Chi Protein [Mass/Vol] 7.1 g/dL Normal 6.4-8.2 [facility] Comment on above: Performed By: #### L IVKATHY, BMP ####[facility] Qcbxidrwnb[address] [place], [place] [address]Dr. Soniya Chi PROF CHEM 8 (BAS METB)on Anion gap [Moles/Vol] 6.8 mmol/L Normal [facility] Comment on above: Performed By: #### L IVKATHY, BMP ####[facility] Nyvucqtfyf[address] [place], [place] [address]Dr. Soniya Chi Calcium [Mass/Vol] 10.1 mg/dL Normal 8.5-10.1 [facility] Comment on above: Performed By: #### L IVKATHY, BMP ####[facility] Jshmammapp[address] [place], [place] [address]Dr. Soniya Chi Chloride [Moles/Vol] 105 mmol/L Normal 98-107 [facility] Comment on above: Performed By: #### Yue HA, BMP ####[facility] Oervmjrnhm7841 [place] [address]Dr. Soniya Chi CO2 [Moles/Vol] 32.4 mmol/L Critically high 21.0-32.0 [facility] Comment on above: Performed By: #### Yue HA, BMP ####[facility] Kgmluorrli[address] [place], [place] [address]Dr. Soniya Chi Creatinine [Mass/Vol] 1.25 mg/dL Critically high 0.55-1.02 The [facility] Comment on above: Performed By: #### Yue HA, BMP ####[facility] Qsbbcisfza[address] [place], [place] [address]Dr. Soniya Alon EGFR-AF IRISH 52 mL/min/1.73m2 Critically low >=60 The [facility] Comment on above: Performed By: #### Yue HA, BMP ####[facility] Vvcsipyltg[address] [place], [place] [address]Dr. Soniya Chi EGFR-NON AF IRISH 43 mL/min/1.73m2 Critically low >=60 The [facility] Comment on above: Performed By: #### Yue HA, BMP ####[facility] Fnqqihpnfh[address] [place], [place] [address]Dr. Soniya Chi Glucose [Mass/Vol] 86 mg/dL Normal 74-106 The [facility] Comment on above: Performed By: #### Yue HA, BMP ####[facility] Defhsunher[address] [place], [place] [address]Dr. Soniya Chi Potassium [Moles/Vol] 3.9 mmol/L Normal 3.5-5.1 [facility] Comment on above: Performed By: #### Yue HA, BMP ####[facility] Letjgziwpr[address] [place], [place] [address]Dr. Gypsyjuan Chi Sodium [Moles/Vol] 142 mmol/L Normal 136-145 [facility] Comment on above: Performed By: #### Yue HA, BMP ####[facility] Snmseanehi6974 [place], [place] [address]Xl. Soniya Chi Urea nitrogen [Mass/Vol] 23.0 mg/dL Critically high 7.0-18.0 [facility] Comment on above: Performed By: #### L LELAND BMP ####[facility] Vsriywhnnk7105 [place], [place] [address]Zs. Soniya Chi Urea nitrogen/Creatinine [Mass ratio] 18.4 mg/mg Normal [facility] Comment on above: Performed By: #### L LELAND BMP ####[facility] Pokmnukzon3362 [place], [place] [address]Lm. Soniya Chi Outpatient [facility] Recordon 0 08-07-2022 Outpatient Clinic Record [id number]:[address] [facility] Basic Metabolic Panelon 06-02 Anion gap [Moles/Vol] 12.2 mmol/L Normal 6.0-15.0 [facility] Comment on above: Performed By: #### S DEANN COVID-19 TERE #### [facility] [address] [place] [address] [place] Calcium [Mass/Vol] 9.3 mg/dL Normal 8.2-10.2 [facility] Comment on above: Performed By: #### S OFSANDRA COVID-19 TERE #### [facility] [address] [place] [address] [place] Chloride [Moles/Vol] 100 mmol/L Normal 95-114 [facility] Comment on above: Performed By: #### S OFSANDRA COVID-19 TERE #### [facility] [address] [place] [address] [place] CO2 [Moles/Vol] 26.6 mmol/L Normal 22.0-30.0 [facility] Comment on above: Performed By: #### S OFSANDRA COVID-19 TERE #### [facility] [address] [place] [id number] [place] Creatinine [Mass/Vol] 1.30 mg/dL High 0.44-1.03 [facility] Comment on above: Performed By: #### S DEANN COVID-19 TERE #### [facility] [address] Creatinine Clr Calc Pharmacy 39.93 [facility] Comment on above: Result Comment: PERF ORMED BY: [place] [address] PATHOLOGIST TUBE PULLER TRACY DICKERSON M.D. Performed By: #### S DEANN COVID-19 TERE #### [facility] [address] Estimated GFR ( Emilie 49 [facility] Comment on above: Result Comment: GFR estimated reference range: According to KDOQI guidelines, <60 ml/min/1.73m2 is sufficient to diagnose a patient with chronic kidney disease. Performed By: #### S DEANN COVID-19 TERE #### [address] Estimated GFR (Non- Am 41 [facility] Comment on above: Performed By: #### S WARRENSANDRA COVID-19 TERE #### [address] Glucose [Mass/Vol] 101 mg/dL High 70-100 [facility] Comment on above: Result Comment: [place] Glucose Reference Range is dependent on time and content of last meal. Glucose of more than 200 mg/dL in a nonstressed, ambulatory subject supports the diagnosis of Diabetes Mellitus. ADA recommended reference range Performed By: #### S OFSANDRA COVID-19 TERE #### [facility] [address] [place] [address] Potassium [Moles/Vol] 3.8 mmol/L Normal 3.5-5.1 [facility] Comment on above: Performed By: #### S DEANN COVID-19 TERE #### [facility] [address] [place] [address] [place] Sodium [Moles/Vol] 135 mmol/L Low 136-146 [facility] Comment on above: Performed By: #### S OFDAIJAHEIDI, COVID-19 TERE #### [facility] [address] [place] [address] [place] Urea nitrogen [Mass/Vol] 26 mg/dL High 9-23 [facility] Comment on above: Performed By: #### S OFDAIJAEG, COVID-19 TERE #### [facility] [address] [place] [address] [place] Creatinine and Glomerular fi ltration rate.predicted panel (S/P/Bld)Ordered By: Marlene Guerra on 06-17-2022 Creatinine [Mass/Vol] 1.30 mg/dL 0.44-1.03 [facility] Estimated glomerular filtrat ion rate (GFR) non- AmericanOrdered By: Marlene Guerra on 06-17-2022 GFR/1.73 sq M.predicted among non-blacks MDRD (S/P/Bld) [Vol rate/Area] 41 mL/Min [facility] No Panel InformationOrdered By: Marlene Guerra on 06-17-2022 Estimated GFR () 49 mL/Min [facility] Comment on above: GFR estimated refere nce range: According to KDOQI guidelines, <60 ml/min/1.73m2 is sufficient to diagnose a patient with chronic kidney disease. Pharmacy Creatinine Clearance (Chem 39.93 [facility] Serum or plasma anion gap de terminationOrdered By: Marlene Guerra on 06-17-2022 Anion gap [Moles/Vol] 12.2 mmol/L 6.0-15.0 [facility] Serum or plasma calcium negin urement (mass/volume)Ordered By: Marlene Guerra on 06-17-2022 Calcium [Mass/Vol] 9.3 mg/dL 8.2-10.2 [facility] Serum or plasma chloride russel surement (moles/volume)Ordered By: Marlene Guerra on 06-17-2022 Chloride [Moles/Vol] 100 mmol/L 95-114 [facility] Serum or plasma glucose negin urement (mass/volume)Ordered By: Marlene Guerra on 06-17-2022 Glucose [Mass/Vol] 101 mg/dL 70-100 [facility] Comment on above: ADA recommended refe rence rangeRandom Glucose Reference Range is dependent on time and content of last meal. Glucose of more than 200 mg/dL in a nonstressed, ambulatory subject supports the diagnosis of Diabetes Mellitus. Serum or plasma potassium me asurement (moles/volume)Ordered By: Marlene Guerra on 06-17-2022 Potassium [Moles/Vol] 3.8 mmol/L 3.5-5.1 [facility] Serum or plasma sodium measu rement (moles/volume)Ordered By: Marlene Guerra on 06-17-2022 Sodium [Moles/Vol] 135 mmol/L 136-146 [facility] Serum or plasma total carbon dioxide measurement (moles/volume)Ordered By: Marlene Guerra on 06-17-2022 CO2 [Moles/Vol] 26.6 mmol/L 22.0-30.0 [facility] Serum or plasma urea nitroge n measurement (mass/volume)Ordered By: Marlene Guerra on 06-17-2022 Urea nitrogen [Mass/Vol] 26 mg/dL 9-23 [facility] Basic Metabolic Panelon 06-02 Anion gap [Moles/Vol] 11.7 mmol/L Normal 6.0-15.0 [facility] Comment on above: Performed By: #### C BC #### [facility] [address] [place] [id number] [place] Calcium [Mass/Vol] 9.8 mg/dL Normal 8.2-10.2 [facility] Comment on above: Performed By: #### C BC #### [facility] [address] [place] [address] [place] Chloride [Moles/Vol] 103 mmol/L Normal 95-114 [facility] Comment on above: Performed By: #### C BC #### [facility] [address] [place] [address] [place] CO2 [Moles/Vol] 26.5 mmol/L Normal 22.0-30.0 [facility] Comment on above: Performed By: #### C BC #### [address] Creatinine [Mass/Vol] 1.44 mg/dL High 0.44-1.03 [facility] Comment on above: Performed By: #### C BC #### [place] [address] [place] Creatinine Clr Calc Pharmacy 36.05 [facility] Comment on above: Result Comment: PERF ORMED BY: [place] [address] PATHOLOGIST TUBE PULLER TRACY DICKERSON M.D. Performed By: #### C BC #### [address] Estimated GFR ( Emilie 44 [facility] Comment on above: Result Comment: GFR estimated reference range: According to KDOQI guidelines, <60 ml/min/1.73m2 is sufficient to diagnose a patient with chronic kidney disease. Performed By: #### C BC #### [address] Estimated GFR (Non- Am 36 [facility] Comment on above: Performed By: #### C BC #### [address] Glucose [Mass/Vol] 94 mg/dL Normal 70-100 [facility] Comment on above: Result Comment: [place] Glucose Reference Range is dependent on time and content of last meal. Glucose of more than 200 mg/dL in a nonstressed, ambulatory subject supports the diagnosis of Diabetes Mellitus. ADA recommended reference range Performed By: #### C BC #### [address] Potassium [Moles/Vol] 4.2 mmol/L Normal 3.5-5.1 [facility] Comment on above: Performed By: #### C BC #### [address] Sodium [Moles/Vol] 137 mmol/L Normal 136-146 [facility] Comment on above: Performed By: #### C BC #### [facility] [address] Urea nitrogen [Mass/Vol] 33 mg/dL High 9-23 [facility] Comment on above: Performed By: #### C BC #### [facility] [address] Basophils Auto (Bld) [#/Vol] Ordered By: Marlene Guerra on 06-15-2022 Basophils (Bld) [#/Vol] 0.0 10*3/uL 0.0-0.2 [facility] Basophils/100 WBC Auto (Bld) Ordered By: Marlene Guerra on 06-15-2022 Basophils/100 WBC (Bld) 0.5 % . [facility] Complete Blood Count Auto Di ffon 06-15-2022 Basophils (Bld) [#/Vol] 0.0 10*3/uL Normal 0.0-0.2 [facility] Comment on above: Result Comment: PERF ORMED BY: [place] [address] PATHOLOGIST TUBE PULLER TRACY DICKERSON M.D. Performed By: #### C BC #### [address] Basophils/100 WBC (Bld) 0.5 % Normal . [facility] Comment on above: Performed By: #### C BC #### [place] [address] [place] Eosinophils (Bld) [#/Vol] 0.0 10*3/uL Normal 0.0-0.45 [facility] Comment on above: Performed By: #### C BC #### [place] [address] [place] Eosinophils/100 WBC (Bld) 0.3 % Normal . [facility] Comment on above: Performed By: #### C BC #### [address] Erythrocyte distribution width (RBC) [Ratio] 15.6 % High 11.9-15.3 [facility] Comment on above: Performed By: #### C BC #### [facility] [address] Hematocrit (Bld) [Volume fraction] 34.4 % Normal 34.0-46.4 [facility] Comment on above: Performed By: #### C BC #### [facility] [address] Hemoglobin (Bld) [Mass/Vol] 11.2 g/dL Low 11.8-15.4 [facility] Comment on above: Performed By: #### C BC #### [address] Lymphocytes (Bld) [#/Vol] 0.9 10*3/uL Low 1.00-4.8 [facility] Comment on above: Performed By: #### C BC #### [address] Lymphocytes/100 WBC (Bld) 10.9 % Normal . [facility] Comment on above: Performed By: #### C BC #### [address] MCH (RBC) [Entitic mass] 29.6 pg Normal 24.7-34.3 [facility] Comment on above: Performed By: #### C BC #### [address] MCV (RBC) [Entitic vol] 90.5 fL Normal 80-100 [facility] Comment on above: Performed By: #### C BC #### [address] Mean Corpuscular HGB Conc 32.7 g/dL Normal 32.0-35.0 [facility] Comment on above: Performed By: #### C BC #### [address] Monocytes (Bld) [#/Vol] 0.8 10*3/uL Normal 0.0-0.8 [facility] Comment on above: Performed By: #### C BC #### [address] [address] [place] Monocytes/100 WBC (Bld) 9.8 % Normal . [facility] Comment on above: Performed By: #### C BC #### [facility] [address] Neutrophils (Bld) [#/Vol] 6.4 10*3/uL Normal 1.8-7.7 [facility] Comment on above: Performed By: #### C BC #### [facility] [address] Neutrophils/100 WBC (Bld) 78.5 % Normal . [facility] Comment on above: Performed By: #### C BC #### [address] NRBC% 0.1 /100{WBC} Normal 0-0.5 [facility] Comment on above: Performed By: #### C BC #### [address] Platelet mean volume (Bld) [Entitic vol] 7.9 fL Normal 6.3-10.7 [facility] Comment on above: Performed By: #### C BC #### [facility] [address] [place] [address] [place] Platelets (Bld) [#/Vol] 209 10*3/uL Normal 150-450 [facility] Comment on above: Performed By: #### C BC #### [place] [address] [place] RBC (Bld) [#/Vol] 3.80 10*6/uL Normal 3.60-5.00 [facility] Comment on above: Performed By: #### C BC #### [place] [address] [place] WBC (Bld) [#/Vol] 8.2 10*3/uL Normal 3.8-11.6 [facility] Comment on above: Performed By: #### C BC #### [place] [address] [place] Eosinophils Auto (Bld) [#/Vo l]Ordered By: Marleneneeta Guerra on 06-15-2022 Eosinophils (Bld) [#/Vol] 0.0 10*3/uL 0.0-0.45 [facility] Eosinophils/100 WBC Auto (Bl d)Ordered By: Marlene Charlie on 06-15-2022 Eosinophils/100 WBC (Bld) 0.3 % . [facility] Erythrocyte distribution wid th Auto (RBC) [Ratio]Ordered By: Marlene Charlie on 06-15-2022 Erythrocyte distribution width (RBC) [Ratio] 15.6 % 11.9-15.3 [facility] Hematocrit Auto (Bld) [Volum e fraction]Ordered By: Marleneneeta Guerra on 06-15-2022 Hematocrit (Bld) [Volume fraction] 34.4 % 34.0-46.4 [facility] Hemoglobin [Mass/volume] in BloodOrdered By: Marlene Guerra on 06-15-2022 Hemoglobin (Bld) [Mass/Vol] 11.2 g/dL 11.8-15.4 [facility] Influenza A and B Antigenon [...] Negative for Influenza B Antigen PERFORMED BY: [facility] [address] [place] [address] PATHOLOGIST TUBE PULLER TRACY DICKERSON M.D. Normal [facility] Comment on above: Performed By: #### S DEANN COVID-19 TERE #### [facility] [address] Influenza virus A and B anti gen detection by immunoassayOrdered By: Kassandra Vasquez on 06-15-2022 FLUAV+FLUBV Ag IA Ql (Unsp spec) [facility] Leukocytes [#/volume] correc scott for nucleated erythrocytes in Blood by Automated counOrdered By: Marlene Guerra on 06-15-2022 WBC corrected for nucl RBC Auto (Bld) [#/Vol] 8.2 10*3/uL 3.8-11.6 [facility] Lymphocytes Auto (Bld) [#/Vo l]Ordered By: Marlene Guerra on 06-15-2022 Lymphocytes (Bld) [#/Vol] 0.9 10*3/uL 1.00-4.8 [facility] Lymphocytes/100 WBC Auto (Bl d)Ordered By: Marlene Guerra on 06-15-2022 Lymphocytes/100 WBC (Bld) 10.9 % . [facility] MCH Auto (RBC) [Entitic mass ]Ordered By: Marlene Guerra on 06-15-2022 MCH (RBC) [Entitic mass] 29.6 pg 24.7-34.3 [facility] MCHC Auto (RBC) [Mass/Vol]Or dered By: Marlene Guerra on 06-15-2022 MCHC (RBC) [Mass/Vol] 32.7 g/dL 32.0-35.0 [facility] MCV Auto (RBC) [Entitic vol] Ordered By: Marlene Guerra on 06-15-2022 MCV (RBC) [Entitic vol] 90.5 fL 80-100 [facility] Monocytes Auto (Bld) [#/Vol] Ordered By: Marlene Guerra on 06-15-2022 Monocytes (Bld) [#/Vol] 0.8 10*3/uL 0.0-0.8 [facility] Monocytes/100 WBC Auto (Bld) Ordered By: Marlene Guerra on 06-15-2022 Monocytes/100 WBC (Bld) 9.8 % . [facility] Neutrophils Auto (Bld) [#/Vo l]Ordered By: Marlene Guerra on 06-15-2022 Neutrophils (Bld) [#/Vol] 6.4 10*3/uL 1.8-7.7 [facility] Neutrophils/100 WBC Auto (Bl d)Ordered By: Marlene Guerra on 06-15-2022 Neutrophils/100 WBC (Bld) 78.5 % . [facility] Nucleated erythrocytes [Pres ence] in Blood by Automated countOrdered By: Marlene Guerra on 06-15-2022 Nucleated RBC Auto Ql (Bld) 0.1 /100{WBC} 0-0.5 [facility] Platelet mean volume Auto (B ld) [Entitic vol]Ordered By: Marleneneeta Guerra on 06-15-2022 Platelet mean volume (Bld) [Entitic vol] 7.9 fL 6.3-10.7 [facility] Platelets Auto (Bld) [#/Vol] Ordered By: Marlene Charlie on 06-15-2022 Platelets (Bld) [#/Vol] 209 10*3/uL 150-450 [facility] RBC Auto (Bld) [#/Vol]Ordere d By: Marlene Charlie on 06-15-2022 RBC (Bld) [#/Vol] 3.80 10*6/uL 3.60-5.00 [facility] Urine Cultureon 06-15-2022 Bacteria identified Cx Nom (U) 25,000 colonies/ml mixed bacterial skin contaminants 2 Days PERFORMED BY: [place] [address] PATHOLOGIST TUBE PULLER TRACY DICKERSON M.D. Normal [facility] Comment on above: Performed By: #### C BC #### [facility] [address] [place] [address] Urine culture routineOrdered By: Marlene Guerra on 06-15-2022 Bacteria identified Cx Nom (U) 2 Days [facility] Vaginitis Plus (VG+)on 06-15 Atopobium Vaginae Low - [address] [facility] Comment on above: Order Comment: SOURC E OF SPECIMEN: Vagina per Dr. Cordoba. Performed By: #### C BC #### [facility] [address] [place] [address] [place] BVAB2 Low - 0 Normal . [facility] Comment on above: Order Comment: SOURC E OF SPECIMEN: Vagina per Dr. Cordoba. Performed By: #### C BC #### [facility] [address] [place] [address] [place] Emily Albicans, DORIAN Negative Normal Negative [facility] Comment on above: Order Comment: SOURC E OF SPECIMEN: Vagina per Dr. Cordoba. Result Comment: This test was developed and its performance characteristics determined by [facility]. It has not been cleared or approved by the Food and Drug Administration. Performed By: #### C BC #### [address] Emily Glabrata, DORIAN Negative Normal Negative [facility] Comment on above: Order Comment: SOURC E OF SPECIMEN: Vagina per Dr. Cordoba. Result Comment: This test was developed and its performance characteristics determined by [facility]. It has not been cleared or approved by the Food and Drug Administration. PERFORMED BY: [place] [address] PATHOLOGIST TUBE PULLER TRACY DICKERSON M.D. Performed By: #### C BC #### [address] Chlamydia Trachomotis, DORIAN Negative Normal Negative [facility] Comment on above: Order Comment: SOURC E OF SPECIMEN: Vagina per Dr. Cordoba. Performed By: #### C BC #### [address] Megasphaera Low - 0 Normal . [facility] Comment on above: Order Comment: [...] Administration. Performed By: #### C BC #### [address] Neisseria Gonorrhoeae, DORIAN Negative Normal Negative [facility] Comment on above: Order Comment: SOURC E OF SPECIMEN: Vagina per Dr. Cordoba. Result Comment: Perf ormed at: =G - [facility] [address] [id number] Procurement Buyer: Ladan Lanza MD, Phone: [phone] Performed By: #### C BC #### [facility] [address] Tric Vag DORIAN Negative Normal Negative [facility] Comment on above: Order Comment: SOURC E OF SPECIMEN: Vagina per Dr. Cordoba. Performed By: #### C BC #### [address] WBC Auto (Bld) [#/Vol]Ordere d By: Marlene Guerra on 06-15-2022 WBC (Bld) [#/Vol] 8.2 10*3/uL 3.8-11.6 [facility] Albumin [Mass/volume] in Ser um or PlasmaOrdered By: Marty Mclean on 06-14-2022 Albumin [Mass/Vol] 4.0 g/dL 3.2-5.5 [facility] Ammoniaon 06-14-2022 Ammonia (P) [Moles/Vol] 10 umol/L Low 11-35 [facility] Comment on above: Result Comment: PERF ORMED BY: [place] [address] PATHOLOGIST TUBE PULLER TRACY DICKERSON M.D. Performed By: #### C BC #### [address] Automated erythrocytes count in urine sediment (number/area)Ordered By: Marty Mclean on 06-14-2022 RBC Auto (Urine sed) [#/Area] 0-1 [HPF] 0-4 [facility] Automated leukocytes count i n urine sediment (number/area)Ordered By: Marty Mclean on 06-14-2022 WBC Auto (Urine sed) [#/Area] None seen [HPF] 0-4 [facility] Automated urine color determ inationOrdered By: Marty Mclean on 06-14-2022 Color (U) Yellow Normal Yellow [facility] Comment on above: Order Comment: Name Collection Type:: Straight Catheter Performed By: #### S OFIANEG, COVID-19 TERE #### [place] [address] [facility] Bilirubin Test strip Ql (U)O rdered By: Marty Mclean on 06-14-2022 Bilirubin Ql (U) Negative Negative [facility] COVID-19 Antigenon 3 COVID-19 Antigen Healthcare Worker?: [...] developed and its performance characteristic determined by [facility] and validated at [facility]. This test has not been [...] for SARS Antigen by [facility] PERFORMED BY: [address] [place] [address] PATHOLOGIST TUBE PULLER TRACY DICKERSON M.D. [facility] Comment on above: Performed By: #### S DEANN, COVID-19 TERE #### [facility] [address] COVID-19 SOFIAOrdered By: Ab aziza Mclean on 06-14-2022 SARS-CoV+SARS-CoV-2 (COVID-19) Ag IA.rapid Ql (Resp) Negative Negative [facility] Comment on above: This is a duplicate Tere SARS Antigen ([facility]) result to be used for statistical tracking purpose only. Complete Blood Count Auto Di ffon 06-14-2022 Basophils (Bld) [#/Vol] 0.0 10*3/uL Normal 0.0-0.2 [facility] Comment on above: Result Comment: PERF ORMED BY: [place] [address] PATHOLOGIST TUBE PULLER TRACY DICKERSON M.D. Performed By: #### C BC #### [address] Basophils/100 WBC (Bld) 0.2 % Normal . [facility] Comment on above: Performed By: #### C BC #### [address] Eosinophils (Bld) [#/Vol] 0.0 10*3/uL Normal 0.0-0.45 [facility] Comment on above: Performed By: #### C BC #### [address] Eosinophils/100 WBC (Bld) 0.1 % Normal . [facility] Comment on above: Performed By: #### C BC #### [address] Erythrocyte distribution width (RBC) [Ratio] 15.8 % High 11.9-15.3 [facility] Comment on above: Performed By: #### C BC #### [address] Hematocrit (Bld) [Volume fraction] 36.6 % Normal 34.0-46.4 [facility] Comment on above: Performed By: #### C BC #### [address] Hemoglobin (Bld) [Mass/Vol] 11.8 g/dL Normal 11.8-15.4 [facility] Comment on above: Performed By: #### C BC #### [address] Lymphocytes (Bld) [#/Vol] 0.7 10*3/uL Low 1.00-4.8 [facility] Comment on above: Performed By: #### C BC #### [address] Lymphocytes/100 WBC (Bld) 5.8 % Normal . [facility] Comment on above: Performed By: #### C BC #### [address] MCH (RBC) [Entitic mass] 29.4 pg Normal 24.7-34.3 [facility] Comment on above: Performed By: #### C BC #### [address] MCV (RBC) [Entitic vol] 90.8 fL Normal 80-100 [facility] Comment on above: Performed By: #### C BC #### [address] Mean Corpuscular HGB Conc 32.3 g/dL Normal 32.0-35.0 [facility] Comment on above: Performed By: #### C BC #### [address] Monocytes (Bld) [#/Vol] 0.8 10*3/uL Normal 0.0-0.8 [facility] Comment on above: Performed By: #### C BC #### [address] Monocytes/100 WBC (Bld) 6.2 % Normal . [facility] Comment on above: Performed By: #### C BC #### [address] Neutrophils (Bld) [#/Vol] 10.8 10*3/uL High 1.8-7.7 [facility] Comment on above: Performed By: #### C BC #### [facility] [address] Neutrophils/100 WBC (Bld) 87.7 % Normal . [facility] Comment on above: Performed By: #### C BC #### [facility] [address] NRBC% 0.0 /100{WBC} Normal 0-0.5 [facility] Comment on above: Performed By: #### C BC #### [facility] [address] Platelet mean volume (Bld) [Entitic vol] 7.9 fL Normal 6.3-10.7 [facility] Comment on above: Performed By: #### C BC #### [facility] [address] Platelets (Bld) [#/Vol] 255 10*3/uL Normal 150-450 [facility] Comment on above: Performed By: #### C BC #### [facility] [address] RBC (Bld) [#/Vol] 4.02 10*6/uL Normal 3.60-5.00 [facility] Comment on above: Performed By: #### C BC #### [facility] [address] WBC (Bld) [#/Vol] 12.3 10*3/uL High 3.8-11.6 [facility] Comment on above: Performed By: #### C BC #### [facility] [address] [place] [id number] [facility] Comprehensive Metabolic Pane nydia 06-14-2022 Albumin [Mass/Vol] 4.0 g/dL Normal 3.2-5.5 [facility] Comment on above: Performed By: #### C MP #### [facility] [address] Albumin/Globulin [Mass ratio] 1.1 {ratio} Normal [facility] Comment on above: Performed By: #### C MP #### [facility] [address] [place] [address] ALP [Catalytic activity/Vol] 91 U/L Normal 32-92 [facility] Comment on above: Performed By: #### C MP #### [address] ALT [Catalytic activity/Vol] 25 U/L Normal 10-60 [facility] Comment on above: Performed By: #### C MP #### [address] Anion gap [Moles/Vol] 13.7 mmol/L Normal 6.0-15.0 [facility] Comment on above: Performed By: #### C MP #### [address] AST [Catalytic activity/Vol] 17 U/L Normal 10-42 [facility] Comment on above: Performed By: #### C MP #### [address] Bilirubin [Mass/Vol] 0.9 mg/dL Normal 0.3-1.2 [facility] Comment on above: Performed By: #### C MP #### [address] Calcium [Mass/Vol] 10.1 mg/dL Normal 8.2-10.2 [facility] Comment on above: Performed By: #### C MP #### [address] Chloride [Moles/Vol] 104 mmol/L Normal 95-114 [facility] Comment on above: Performed By: #### C MP #### [address] CO2 [Moles/Vol] 24.6 mmol/L Normal 22.0-30.0 [facility] Comment on above: Performed By: #### C MP #### [address] Creatinine [Mass/Vol] 1.44 mg/dL High 0.44-1.03 [facility] Comment on above: Performed By: #### C MP #### [place] [address] [place] Creatinine Clr Calc Pharmacy 36.05 [facility] Comment on above: Result Comment: PERF ORMED BY: [address] [place] [address] PATHOLOGIST TUBE PULLER TRACY DICKERSON M.D. Performed By: #### C MP #### [address] Estimated GFR ( Emilie 44 [facility] Comment on above: Result Comment: GFR estimated reference range: According to KDOQI guidelines, <60 ml/min/1.73m2 is sufficient to diagnose a patient with chronic kidney disease. Performed By: #### C MP #### [address] Estimated GFR (Non- Am 36 [facility] Comment on above: Performed By: #### C MP #### [address] Globulin (S) [Mass/Vol] 3.5 g/dL [facility] Comment on above: Performed By: #### C MP #### [address] Glucose [Mass/Vol] 97 mg/dL Normal 70-100 [facility] Comment on above: Result Comment: [place] Glucose Reference Range is dependent on time and content of last meal. Glucose of more than 200 mg/dL in a nonstressed, ambulatory subject supports the diagnosis of Diabetes Mellitus. ADA recommended reference range Performed By: #### C MP #### [address] Potassium [Moles/Vol] 4.3 mmol/L Normal 3.5-5.1 [facility] Comment on above: Performed By: #### C MP #### [place] [address] [place] Protein [Mass/Vol] 7.5 g/dL Normal 6.1-7.9 [facility] Comment on above: Performed By: #### C MP #### [address] Sodium [Moles/Vol] 138 mmol/L Normal 136-146 [facility] Comment on above: Performed By: #### C MP #### [address] Urea nitrogen [Mass/Vol] 36 mg/dL High 9- [facility] Comment on above: Performed By: #### C MP #### [address] Dipstick and Microscopicon 0 06-14-2022 Bacteria,Urine None Seen Normal None Seen [facility] Comment on above: Order Comment: Name Collection Type:: Straight Catheter Performed By: #### S OFIANEG, COVID-19 TERE #### [address] Hyaline Casts,Urine None Seen Normal 0-8 [facility] Comment on above: Order Comment: Name Collection Type:: Straight Catheter Result Comment: PERF ORMED BY: [place] [address] PATHOLOGIST TUBE PULLER TRACY DICKERSON M.D. Performed By: #### S OFIANEG, COVID-19 TERE #### [address] RBC LM.HPF (Urine sed) [#/Area] 0 /[HPF] Normal 0-4 [facility] Comment on above: Order Comment: Name Collection Type:: Straight Catheter Performed By: #### S OFIANEG, COVID-19 TERE #### [address] Squamous Epithelial Cell,Urine None Seen Normal 0-2 [facility] Comment on above: Order Comment: Name Collection Type:: Straight Catheter Performed By: #### S OFIANEG, COVID-19 TERE #### [address] [address] [place] WBC,Urine None Seen Normal 0-4 [facility] Comment on above: Order Comment: Name Collection Type:: Straight Catheter Performed By: #### S ALLISON ZACARIAS-Raya CARRANZA #### [facility] [address] [place] [id number] [facility] Globulin Calc (S) [Mass/Vol] Ordered By: Marty Mclean on 06-14-2022 Globulin (S) [Mass/Vol] 3.5 g/dL [facility] Ketones Auto test strip (U) [Mass/Vol]Ordered By: Marty Mclean on 06-14-2022 Ketones (U) [Mass/Vol] Negative Negative [facility] Laboratory - UrinalysisOrder ed By: Marty Mclean on 06-14-2022 Hyaline casts LM Ql (Urine sed) None seen [LPF] 0-8 [facility] Monocyte %Ordered By: Marlene Guerra on 06-14-2022 Monocyte % 10 umol/L 11-35 [facility] Nitrite Test strip Ql (U)Ord ered By: Marty Mclean on 06-14-2022 Nitrite Ql (U) Negative Negative [facility] Protein Auto test strip (U) [Mass/Vol]Ordered By: Marty Mclean on 06-14-2022 Protein (U) [Mass/Vol] Negative Negative [facility] Protein [Mass/volume] in Ser um or PlasmaOrdered By: Marty Mclean on 06-14-2022 Protein [Mass/Vol] 7.5 g/dL 6.1-7.9 [facility] Serum or plasma alanine reyes otransferase measurement without P-5'-P (enzymatic activiOrdered By: Marty Mclean on 06-14-2022 ALT No additional P-5'-P [Catalytic activity/Vol] 25 U/L 10-60 [facility] Serum or plasma albumin/glob ulin mass ratioOrdered By: Marty Mclean on 06-14-2022 Albumin/Globulin [Mass ratio] 1.1 {ratio} [facility] Serum or plasma alkaline derek sphatase measurement (enzymatic activity/volume)Ordered By: Marty Mclean on 06-14-2022 ALP [Catalytic activity/Vol] 91 U/L 32-92 [facility] Serum or plasma aspartate am inotransferase measurement (enzymatic activity/volume)Ordered By: Marty Mclean on 06-14-2022 AST [Catalytic activity/Vol] 17 U/L 10-42 [facility] Serum or plasma total biliru bin measurement (mass/volume)Ordered By: Marty Mclean on 06-14-2022 Bilirubin [Mass/Vol] 0.9 mg/dL 0.3-1.2 [facility] Tere Ag Negativeon 06-14-19 23 Tere Ag Negative Negative Normal Negative [facility] Comment on above: Result Comment: This is a duplicate Tere SARS Antigen (CHU) result to be used for statistical tracking purpose only. PERFORMED BY: [place] [address] PATHOLOGIST TUBE PULLER TRACY DICKERSON M.D. Performed By: #### S DEANN COVID-19 TERE #### [facility] [address] Specific gravity Auto test s trip (U) [Rel density]Ordered By: Marty Mclean on 06-14-2022 Specific gravity (U) [Rel density] 1.018 1.001-1.030 [facility] Squamous epithelial cells de tection in urine sediment by light microscopyOrdered By: Marty Mclean on 06-14-2022 Epithelial cells.squamous LM Ql (Urine sed) None seen [HPF] 0-2 [facility] Urinalysison 06-14-2022 Appearance (U) Clear Normal Clear [facility] Comment on above: Order Comment: Name Collection Type:: Straight Catheter Performed By: #### S OFSANDRA, COVID-19 TERE #### [facility] 1111 [place] [address] [place] Bilirubin,Urine Negative Normal Negative [facility] Comment on above: Order Comment: Name Collection Type:: Straight Catheter Performed By: #### S OFIANEG, COVID-19 TERE #### [facility] [address] [place] [address] [place] Glucose Ql (U) Normal Normal Normal [facility] Comment on above: Order Comment: Name Collection Type:: Straight Catheter Performed By: #### S OFIANEG, COVID-19 TERE #### [place] [address] [place] Ketones Ql (U) Negative Normal Negative [facility] Comment on above: Order Comment: Name Collection Type:: Straight Catheter Performed By: #### S OFIANEG, COVID-19 TERE #### [address] Leukocyte esterase Test strip Ql (U) Negative Normal Negative [facility] Comment on above: Order Comment: Name Collection Type:: Straight Catheter Performed By: #### S OFIANEG, COVID-19 TERE #### [place] [address] [place] Nitrite,Urine Negative Normal Negative [facility] Comment on above: Order Comment: Name Collection Type:: Straight Catheter Performed By: #### S OFIANEG, COVID-19 TERE #### [place] [address] [place] Occult Blood,Urine Negative Normal Negative [facility] Comment on above: Order Comment: Name Collection Type:: Straight Catheter Result Comment: PERF ORMED BY: [place] [address] PATHOLOGIST TUBE PULLER TRACY DICKERSON M.D. Performed By: #### S OFIANEG, COVID-19 TERE #### [facility] [address] [place] [address] [place] Protein,Urine Negative Normal Negative [facility] Comment on above: Order Comment: Name Collection Type:: Straight Catheter Performed By: #### S OFIANEG, COVID-19 TERE #### [facility] [address] [place] [address] [place] Specificy [place],Urine 1.018 Normal 1.001-1.030 [facility] Comment on above: Order Comment: Name Collection Type:: Straight Catheter Performed By: #### S ISATUHEIDI COVID-19 TERE #### [facility] [address] Urobilinogen,Urine Normal Normal Normal [facility] Comment on above: Order Comment: Name Collection Type:: Straight Catheter Performed By: #### S ISATUHEIDI COVID-19 TERE #### [facility] [address] Urine bacteria detection by automated methodOrdered By: Marty Mclean on 06-14-2022 Bacteria Auto Ql (U) None seen None Seen [facility] Urine clarity by refractomet ry automatedOrdered By: Marty Mclean on 06-14-2022 Clarity Refractometry automated (U) Clear Clear [facility] Urine glucose measurement by automated test strip (mass/volume)Ordered By: Marty Mclean on 06-14-2022 Glucose Auto test strip (U) [Mass/Vol] Normal mg/dL Normal [facility] Urine hemoglobin detection b y automated test stripOrdered By: Marty Mclean on 06-14-2022 Hemoglobin Auto test strip Ql (U) Negative Negative [facility] Urine leukocyte esterase det ection by automated test stripOrdered By: Marty Mclean on 06-14-2022 Leukocyte esterase Auto test strip Ql (U) Negative Negative [facility] Urine pH measurement by auto mated test stripOrdered By: Marty Mclean on 06-14-2022 pH (U) 6.0 [pH] Normal 5.0-9.0 [facility] Comment on above: Order Comment: Name Collection Type:: Straight Catheter Performed By: #### S WARRENSANDRA COVID-19 TERE #### [facility] [address] Urobilinogen Auto test strip (U) [Mass/Vol]Ordered By: Marty Mclean on 06-14-2022 Urobilinogen (U) [Mass/Vol] Normal mg/dL Normal [facility] CT head/brain wo conon 06-11 CT head/[place] [address] CT Scan Report Signed Patient: Marley Osborn MR#: [id number] [birth year] : 1955 Acct:[id number] Age/Sex: 66 / F ADM Date: 05/30/22 Loc: Room: [address] [place] [address] Type: ADM IN Attending Dr: Reggie Quintana [...] Layne Lew M.D.06/11/2022 7:25 AM Dictation Location: [place] [address] Transcribed By: [facility] 06/11/22724 Dictated By: Layne Lew MD 06/11/22720 Signed By: 06/11/[address] [facility] [address] head/brain wo conon 06-04 CT head/brain wo con [facility] Main [place] [id number] CT Scan Report Signed Patient: Marley Osborn MR#: [id number] [birth year] : 1955 Acct:[id number] Age/Sex: 66 / F ADM Date: 05/30/22 Loc: Room: [address] [place] [address] Type: ADM IN Attending Dr: Reggie Quintana [...] ABNORMALITY. Impression dictated by: Cody Zayas Jr., D.O.06/04/2022 1:44 PM Dictation Location: [place] [address] Transcribed By: [facility] 06/04/22 1344 Dictated By: Cody Zayas Jr, DO 06/04/22 1342 Signed By: 06/04/22 1344 Normal [facility] Basic Metabolic Panelon Anion gap [Moles/Vol] 10.2 mmol/L Normal 6.0-15.0 [facility] Comment on above: Performed By: #### C BC #### [facility] 1111 [place] [address] [place] Calcium [Mass/Vol] 9.6 mg/dL Normal 8.2-10.2 [facility] Comment on above: Performed By: #### C BC #### [facility] [address] [place] [id number] [place] Chloride [Moles/Vol] 107 mmol/L Normal 95-114 [facility] Comment on above: Performed By: #### C BC #### [address] CO2 [Moles/Vol] 26.8 mmol/L Normal 22.0-30.0 [facility] Comment on above: Performed By: #### C BC #### [facility] [address] Creatinine [Mass/Vol] 1.33 mg/dL High 0.44-1.03 [facility] Comment on above: Performed By: #### C BC #### [address] Creatinine Clr Calc Pharmacy 38.28 [facility] Comment on above: Result Comment: PERF ORMED BY: [place] [address] PATHOLOGIST TUBE PULLER TRACY DICKERSON M.D. Performed By: #### C BC #### [address] Estimated GFR ( Emilie 48 [facility] Comment on above: Result Comment: GFR estimated reference range: According to KDOQI guidelines, <60 ml/min/1.73m2 is sufficient to diagnose a patient with chronic kidney disease. Performed By: #### C BC #### [address] Estimated GFR (Non- Am 40 [facility] Comment on above: Performed By: #### C BC #### [address] Glucose [Mass/Vol] 81 mg/dL Normal 70-100 [facility] Comment on above: Result Comment: [place] om Glucose Reference Range is dependent on time and content of last meal. Glucose of more than 200 mg/dL in a nonstressed, ambulatory subject supports the diagnosis of Diabetes Mellitus. ADA recommended reference range Performed By: #### C BC #### [address] Potassium [Moles/Vol] 4.0 mmol/L Normal 3.5-5.1 [facility] Comment on above: Performed By: #### C BC #### [address] Sodium [Moles/Vol] 140 mmol/L Normal 136-146 [facility] Comment on above: Performed By: #### C BC #### [address] Urea nitrogen [Mass/Vol] 27 mg/dL High 9- [facility] Comment on above: Performed By: #### C BC #### [address] Complete Blood Count Auto Di ffon 06-02-2022 Basophils (Bld) [#/Vol] 0.0 10*3/uL Normal 0.0-0.2 [facility] Comment on above: Result Comment: PERF ORMED BY: [place] [address] PATHOLOGIST TUBE PULLER TRACY DICKERSON M.D. Performed By: #### C BC #### [address] Basophils/100 WBC (Bld) 0.6 % Normal . [facility] Comment on above: Performed By: #### C BC #### [address] Eosinophils (Bld) [#/Vol] 0.2 10*3/uL Normal 0.0-0.45 [facility] Comment on above: Performed By: #### C BC #### [address] Eosinophils/100 WBC (Bld) 3.8 % Normal . [facility] Comment on above: Performed By: #### C BC #### [address] Erythrocyte distribution width (RBC) [Ratio] 15.3 % Normal 11.9-15.3 [facility] Comment on above: Performed By: #### C BC #### [address] Hematocrit (Bld) [Volume fraction] 26.8 % Low 34.0-46.4 [facility] Comment on above: Performed By: #### C BC #### [address] Hemoglobin (Bld) [Mass/Vol] 8.9 g/dL Low 11.8-15.4 [facility] Comment on above: Performed By: #### C BC #### [address] Lymphocytes (Bld) [#/Vol] 1.0 10*3/uL Normal 1.00-4.8 [facility] Comment on above: Performed By: #### C BC #### [address] Lymphocytes/100 WBC (Bld) 22.6 % Normal . [facility] Comment on above: Performed By: #### C BC #### [address] MCH (RBC) [Entitic mass] 30.2 pg Normal 24.7-34.3 [facility] Comment on above: Performed By: #### C BC #### [address] MCV (RBC) [Entitic vol] 90.2 fL Normal 80-100 [facility] Comment on above: Performed By: #### C BC #### [address] Mean Corpuscular HGB Conc 33.5 g/dL Normal 32.0-35.0 [facility] Comment on above: Performed By: #### C BC #### [address] Monocytes (Bld) [#/Vol] 0.4 10*3/uL Normal 0.0-0.8 [facility] Comment on above: Performed By: #### C BC #### [address] Monocytes/100 WBC (Bld) 9.2 % Normal . [facility] Comment on above: Performed By: #### C BC #### [facility] 1[address] [place] [address] [place] Neutrophils (Bld) [#/Vol] 2.9 10*3/uL Normal 1.8-7.7 [facility] Comment on above: Performed By: #### C BC #### [facility] [address] Neutrophils/100 WBC (Bld) 63.8 % Normal . [facility] Comment on above: Performed By: #### C BC #### [facility] [address] NRBC% 0.3 /100{WBC} Normal 0-0.5 [facility] Comment on above: Performed By: #### C BC #### [facility] [address] Platelet mean volume (Bld) [Entitic vol] 9.2 fL Normal 6.3-10.7 [facility] Comment on above: Performed By: #### C BC #### [facility] [address] Platelets (Bld) [#/Vol] 131 10*3/uL Low 150-450 [facility] Comment on above: Performed By: #### C BC #### [facility] [address] RBC (Bld) [#/Vol] 2.97 10*6/uL Low 3.60-5.00 [facility] Comment on above: Performed By: #### C BC #### [facility] [address] WBC (Bld) [#/Vol] 4.6 10*3/uL Normal 3.8-11.6 [facility] Comment on above: Performed By: #### C BC #### [address] Triiodothyronine (T3) Freeon 06-02-2022 Triiodothyronine (T3) Free 2.78 pg/mL Normal 2.50-3.90 [facility] Comment on above: Order Comment: Comme nt can use previous draw if able Result Comment: PERF ORMED BY: [place] [address] PATHOLOGIST TUBE PULLER TRACY DICKERSON M.D. Performed By: #### C BC #### [place] [id number] [facility] Triiodothyronine (T3) Free [ Mass/volume] in Serum or PlasmaOrdered By: Anca Wheeler on 06-02-2022 Free T3 [Mass/Vol] 2.78 pg/mL 2.50-3.90 [facility] Ammoniaon 06-01-2022 Ammonia (P) [Moles/Vol] 15 umol/L Normal 11-35 [facility] Comment on above: Result Comment: PERF ORMED BY: [place] [address] PATHOLOGIST TUBE PULLER TRACY DICKERSON M.D. Performed By: #### C BC, BMP, AMM #### [facility] [address] Basic Metabolic Panelon 12-3 Anion gap [Moles/Vol] 8.8 mmol/L Normal 6.0-15.0 [facility] Comment on above: Performed By: #### C BC, BMP, AMM #### [facility] [address] [place] [address] [place] Calcium [Mass/Vol] 9.4 mg/dL Normal 8.2-10.2 [facility] Comment on above: Performed By: #### C BC, BMP, AMM #### [facility] [address] [place] [id number] [place] Chloride [Moles/Vol] 110 mmol/L Normal 95-114 [facility] Comment on above: Performed By: #### C BC, BMP, AMM #### [facility] [address] [place] [id number] [place] CO2 [Moles/Vol] 26.4 mmol/L Normal 22.0-30.0 [facility] Comment on above: Performed By: #### C BC, BMP, AMM #### [facility] [address] Creatinine [Mass/Vol] 1.12 mg/dL High 0.44-1.03 [facility] Comment on above: Performed By: #### C BC, BMP, AMM #### [facility] [address] [place] [address] [place] Creatinine Clr Calc Pharmacy 45.46 [facility] Comment on above: Result Comment: PERF ORMED BY: [facility] [address] [place] [address] PATHOLOGIST TUBE PULLER TRACY DICKERSON M.D. Performed By: #### C BC, BMP, AMM #### [facility] [address] Estimated GFR ( Emilie 59 [facility] Comment on above: Result Comment: GFR estimated reference range: According to KDOQI guidelines, <60 ml/min/1.73m2 is sufficient to diagnose a patient with chronic kidney disease. Performed By: #### C BC, BMP, AMM #### [facility] [address] [place] [address] [place] Estimated GFR (Non- Am 49 [facility] Comment on above: Performed By: #### C BC, BMP, AMM #### [address] Glucose [Mass/Vol] 79 mg/dL Normal 70-100 [facility] Comment on above: Result Comment: [place] Glucose Reference Range is dependent on time and content of last meal. Glucose of more than 200 mg/dL in a nonstressed, ambulatory subject supports the diagnosis of Diabetes Mellitus. ADA recommended reference range Performed By: #### C BC, BMP, AMM #### [facility] [address] Potassium [Moles/Vol] 3.2 mmol/L Low 3.5-5.1 [facility] Comment on above: Performed By: #### C BC, BMP, AMM #### [facility] [address] [place] [address] Sodium [Moles/Vol] 142 mmol/L Normal 136-146 [facility] Comment on above: Performed By: #### C SHANE BARTLETT AMM #### [address] Urea nitrogen [Mass/Vol] 25 mg/dL High 9-23 [facility] Comment on above: Performed By: #### C SHANE BARTLETT AMM #### [address] biopsyOrdered By: Anca walter on 06-01-2022 Transferrin [Mass/Vol] 207 mg/dL 180-380 [facility] Complete Blood Count Auto Di ffon 06-01-2022 Basophils (Bld) [#/Vol] 0.0 10*3/uL Normal 0.0-0.2 [facility] Comment on above: Result Comment: PERF ORMED BY: [place] [address] PATHOLOGIST TUBE PULLER TRACY DICKERSON M.D. Performed By: #### S OFIANHEIDI, COVID-19 TERE #### [address] Basophils/100 WBC (Bld) 0.5 % Normal . [facility] Comment on above: Performed By: #### S OFIANEG, COVID-19 TERE #### [address] Eosinophils (Bld) [#/Vol] 0.2 10*3/uL Normal 0.0-0.45 [facility] Comment on above: Performed By: #### S OFIANHEIDI, COVID-19 TERE #### [address] Eosinophils/100 WBC (Bld) 4.1 % Normal . [facility] Comment on above: Performed By: #### S OFIANEG, COVID-19 TERE #### [address] Erythrocyte distribution width (RBC) [Ratio] 14.7 % Normal 11.9-15.3 [facility] Comment on above: Performed By: #### S ALLISON ZACARIAS- TERE #### [facility] [address] Hematocrit (Bld) [Volume fraction] 27.0 % Low 34.0-46.4 [facility] Comment on above: Performed By: #### S ALLISON ZACARIAS- TERE #### [address] Hemoglobin (Bld) [Mass/Vol] 8.9 g/dL Low 11.8-15.4 [facility] Comment on above: Performed By: #### S ALLISON ZACARIAS- TERE #### [address] Lymphocytes (Bld) [#/Vol] 1.3 10*3/uL Normal 1.00-4.8 [facility] Comment on above: Performed By: #### S ALLISON ZACARIAS- TERE #### [address] Lymphocytes/100 WBC (Bld) 26.3 % Normal . [facility] Comment on above: Performed By: #### S CONSTANCE ZACARIASID- TERE #### [address] MCH (RBC) [Entitic mass] 30.0 pg Normal 24.7-34.3 [facility] Comment on above: Performed By: #### S CONSTANCE ZACARIASID- TERE #### [address] MCV (RBC) [Entitic vol] 90.7 fL Normal 80-100 [facility] Comment on above: Performed By: #### S CONSTANCE ZACARIASID-19 TERE #### [address] Mean Corpuscular HGB Conc 33.0 g/dL Normal 32.0-35.0 [facility] Comment on above: Performed By: #### S OFSANDRA COVID-19 TERE #### [facility] [address] [place] [address] Monocytes (Bld) [#/Vol] 0.6 10*3/uL Normal 0.0-0.8 [facility] Comment on above: Performed By: #### S OFSANDRA COVID-19 TERE #### [facility] [address] [place] [address] Monocytes/100 WBC (Bld) 11.7 % Normal . [facility] Comment on above: Performed By: #### S OFSANDRA COVID-19 TERE #### [address] Neutrophils (Bld) [#/Vol] 2.9 10*3/uL Normal 1.8-7.7 [facility] Comment on above: Performed By: #### S OFSANDRA COVID-19 TERE #### [address] Neutrophils/100 WBC (Bld) 57.4 % Normal . [facility] Comment on above: Performed By: #### S OFSANDRA COVID-19 TERE #### [address] NRBC% 0.3 /100{WBC} Normal 0-0.5 [facility] Comment on above: Performed By: #### S OFSANDRA COVID-19 TERE #### [address] Platelet mean volume (Bld) [Entitic vol] 9.1 fL Normal 6.3-10.7 [facility] Comment on above: Performed By: #### S OFSANDRA COVID-19 TERE #### [address] Platelets (Bld) [#/Vol] 95 10*3/uL Low 150-450 [facility] Comment on above: Performed By: #### S OFSANDRA COVID-19 TERE #### [facility] [address] RBC (Bld) [#/Vol] 2.97 10*6/uL Low 3.60-5.00 [facility] Comment on above: Performed By: #### S DEANN COVID- TERE #### [facility] [address] [place] [id number] [facility] WBC (Bld) [#/Vol] 5.1 10*3/uL Normal 3.8-11.6 [facility] Comment on above: Performed By: #### S ISATUHEIDI COVID- TERE #### [facility] [address] Ferritinon 06-01-2022 Ferritin [Mass/Vol] 212.1 ng/mL Normal 11-306.8 [facility] Comment on above: Order Comment: Comme nt can use previous draw if able Comment can use previous draw if able Performed By: #### V [id number], TSH3, FE and TIBC, GASPER #### [facility] [address] [place] [id number] [facility] Ferritin [Mass/volume] in Se rum or PlasmaOrdered By: Anca Wheeler on 06-01-2022 Ferritin [Mass/Vol] 212.1 ng/mL 11-306.8 [facility] Folate [Mass/volume] in Seru m or PlasmaOrdered By: Anca Wheeler on 06-01-2022 Folate [Mass/Vol] 5.6 ng/mL >5.9 [facility] Comment on above: Folate reference ran ge: >5.9 ng/mlThe WHO technical consultation on folate and vitamin [id number] has determined that folate concentrations lessthan 4 ng/ml are considered deficient. Iron [Mass/volume] in Serum or PlasmaOrdered By: Anca Wheeler on 06-01-2022 Iron [Mass/Vol] 51 ug/dL 40-150 [facility] Iron and TIBC Profileon 05-04 % Iron Saturation 17.6 % Low 20-50 [facility] Comment on above: Order Comment: Comme nt can use previous draw if able Comment can use previous draw if able Performed By: #### V [id number], TSH3, FE and TIBC, GASPER #### [facility] [address] Iron [Mass/Vol] 51 ug/dL Normal 40-150 [facility] Comment on above: Order Comment: Comme nt can use previous draw if able Comment can use previous draw if able Performed By: #### V [id number], TSH3, FE and TIBC, GASPER #### [facility] [address] Total Iron Binding Capacity 290 ug/dL Normal 255-450 [facility] Comment on above: Order Comment: Comme nt can use previous draw if able Comment can use previous draw if able Performed By: #### V [id number], TSH3, FE and TIBC, GASPER #### [address] Transferrin [Mass/Vol] 207 mg/dL Normal 180-380 [facility] Comment on above: Order Comment: Comme nt can use previous draw if able Comment can use previous draw if able Performed By: #### V [id number], TSH3, FE and TIBC, GASPER #### [address] Iron binding capacity [Mass/ volume] in Serum or PlasmaOrdered By: Anca Wheeler on 06-01-2022 Iron binding capacity [Mass/Vol] 290 ug/dL 255-450 [facility] Iron saturation [Mass Fracti on] in Serum or PlasmaOrdered By: Anca Wheeler on 06-01-2022 Iron saturation [Mass fraction] 17.6 % 20-50 [facility] Laboratory - Chemistry and C hemistry - challengeOrdered By: Anca Wheeler on 06-01-2022 Cobalamin (Vitamin B12) [Mass/Vol] 452 pg/mL 180-914 [facility] TSH DL <= 0.005 mIU/L QnOrde red By: Anca Wheeler on 06-01-2022 TSH Qn 2.65 m[IU]/L 0.45-5.33 [facility] Thyroid Stimulating Hormoneo n 06-01-2022 TSH Qn 2.65 m[IU]/L Normal 0.45-5.33 [facility] Comment on above: Order Comment: Comme nt can use previous draw if able Comment can use previous draw if able Result Comment: PERF ORMED BY: [place] [address] PATHOLOGIST TUBE PULLER TRACY DICKERSON M.D. Performed By: #### V [id number], TSH3, FE and TIBC, GASPER #### [address] Vit. B12/Folate Profileon Cobalamin (Vitamin B12) [Mass/Vol] 452 pg/mL Normal 180-914 [facility] Comment on above: Order Comment: Comme nt can use previous draw if able Comment can use previous draw if able Performed By: #### V [id number], TSH3, FE and TIBC, GASPER #### [facility] [address] [place] [address] Folate 5.6 ng/mL Low >5.9 [facility] Comment on above: Order Comment: Comme nt can use previous draw if able Comment can use previous draw if able Result Comment: Yazmin te reference range: >5.9 ng/ml The WHO technical consultation on folate and vitamin b12 deficiencies has determined that folate concentrations less than 4 ng/ml are considered deficient. Performed By: #### V [id number], TSH3, FE and TIBC, GASPER #### [facility] [address] [place] [address] Casts typing in urine sedime nt by light microscopyOrdered By: Reggie Quintana on 05-31-2022 Casts LM Nom (Urine sed) None seen [LPF] None Seen [facility] Cholesterol [Mass/volume] in Serum or PlasmaOrdered By: Reggie Quintana on 05-31-2022 Cholesterol [Mass/Vol] 139 mg/dL 140-200 [facility] Comment on above: Chol less than 200 m g/dl low riskChol 201-239 mg/dl borderline riskChol 240 mg/dl and greater high risk Cholesterol in LDL Calc [Mas s/Vol]Ordered By: Reggie Quintana on 05-31-2022 Cholesterol in LDL [Mass/Vol] 50 mg/dL 0-100 [facility] Comment on above: LDL ATP III CLASSIFI CATIONLDL less than 100 mg/dL OptimalLDL 100-129 mg/dL Near or above optimalLDL 130-159 mg/dL Borderline highLDL 160-189 mg/dL HighLDL greater than 189 mg/dL Very high Cholesterol in VLDL Calc [Ma ss/Vol]Ordered By: Reggie Quintana on 05-31-2022 Cholesterol in VLDL [Mass/Vol] 16 mg/dL [facility] Dipstick and Microscopicon 1 Appearance (U) Clear Normal Clear [facility] Comment on above: Order Comment: Name Collection Type:: Clean-Voided Midstream Performed By: #### S OFIANEG, COVID-19 TERE #### [facility] [address] [place] [address] [place] Bacteria,Urine Rare High None Seen [facility] Comment on above: Order Comment: Name Collection Type:: Clean-Voided Midstream Performed By: #### S OFIANEG, COVID-19 TERE #### [facility] [address] [place] [address] [place] Bilirubin,Urine Negative Normal Negative [facility] Comment on above: Order Comment: Name Collection Type:: Clean-Voided Midstream Performed By: #### S OFIANEG, COVID-19 TERE #### [facility] [address] [place] [phone] [place] Color (U) Yellow Normal Yellow [facility] Comment on above: Order Comment: Name Collection Type:: Clean-Voided Midstream Performed By: #### S OFIANEG, COVID-19 TERE #### [facility] [address] [place] [id number] [place] Fine Granular Casts,Urine 1-2 High 0-1 [facility] Comment on above: Order Comment: Name Collection Type:: Clean-Voided Midstream Performed By: #### S OFIANEG, COVID-19 TERE #### [facility] [address] [place] [id number] [place] Glucose Ql (U) Normal Normal Normal [facility] Comment on above: Order Comment: Name Collection Type:: Clean-Voided Midstream Performed By: #### S OFIANEG, COVID-19 TERE #### [facility] [address] [place] [address] [place] Hyaline Casts,Urine 10-19 High 0-1 [facility] Comment on above: Order Comment: Name Collection Type:: Clean-Voided Midstream Performed By: #### S OFIANEG, COVID-19 TERE #### [facility] [address] [place] [address] [place] Ketones Ql (U) Negative Normal Negative [facility] Comment on above: Order Comment: Name Collection Type:: Clean-Voided Midstream Performed By: #### S OFIANEG, COVID-19 TERE #### [facility] [address] [place] [address] Leukocyte esterase Test strip Ql (U) 2+ High Negative [facility] Comment on above: Order Comment: Name Collection Type:: Clean-Voided Midstream Performed By: #### S OFIANEG, COVID-19 TERE #### [facility] [address] [place] [address] [place] Mucus,Urine 4+ Critically abnormal [facility] Comment on above: Order Comment: Name Collection Type:: Clean-Voided Midstream Result Comment: PERF ORMED BY: [place] [address] PATHOLOGIST TUBE PULLER TRACY DICKERSON M.D. Performed By: #### S OFIANEG, COVID-19 TERE #### [facility] [address] [place] [address] [place] Nitrite,Urine Negative Normal Negative [facility] Comment on above: Order Comment: Name Collection Type:: Clean-Voided Midstream Performed By: #### S OFIANEG, COVID-19 TERE #### [facility] [address] [place] [address] [place] Occult Blood,Urine Trace High Negative [facility] Comment on above: Order Comment: Name Collection Type:: Clean-Voided Midstream Result Comment: PERF ORMED BY: [place] [address] PATHOLOGIST TUBE PULLER TRACY DICKERSON M.D. Performed By: #### S OFIANEG, COVID-19 TERE #### [facility] [address] [place] [address] Other Casts,Urine None Seen Normal None Seen [facility] Comment on above: Order Comment: Name Collection Type:: Clean-Voided Midstream Performed By: #### S OFIANEG, COVID-19 TERE #### [address] pH (U) 5.5 [pH] Normal 5.0-9.0 [facility] Comment on above: Order Comment: Name Collection Type:: Clean-Voided Midstream Performed By: #### S OFIANEG, COVID-19 TERE #### [address] Protein,Urine Negative Normal Negative [facility] Comment on above: Order Comment: Name Collection Type:: Clean-Voided Midstream Performed By: #### S OFIANEG, COVID-19 TERE #### [address] RBC,Urine 3-4 Normal 0-4 [facility] Comment on above: Order Comment: Name Collection Type:: Clean-Voided Midstream Performed By: #### S OFIANEG, COVID-19 TERE #### [address] Specificy [place],Urine 1.030 Normal 1.001-1.030 [facility] Comment on above: Order Comment: Name Collection Type:: Clean-Voided Midstream Performed By: #### S OFIANEG, COVID-19 TERE #### [facility] [address] [place] [address] Squamous Epithelial Cell,Urine 3-4 High 0-2 [facility] Comment on above: Order Comment: Name Collection Type:: Clean-Voided Midstream Performed By: #### S OFIANEG, COVID-19 TERE #### [facility] [address] [place] [address] Uric Acid Crystals,Urine 3+ Normal [facility] Comment on above: Order Comment: Name Collection Type:: Clean-Voided Midstream Performed By: #### S OFIANEG, COVID-19 TERE #### [facility] [address] Urobilinogen,Urine Normal Normal Normal [facility] Comment on above: Order Comment: Name Collection Type:: Clean-Voided Midstream Performed By: #### S OFIANEG, COVID-19 TERE #### [facility] [address] [place] [address] [place] WBC,Urine 10-19 High 0-4 [facility] Comment on above: Order Comment: Name Collection Type:: Clean-Voided Midstream Performed By: #### S OFIANEG, COVID-19 TERE #### [address] Fine granular cast count in urine sediment by microscopy (number/low power field )Ordered By: Reggie Quintana on 05-31-2022 Fine Granular Casts LM.LPF (Urine sed) [#/Area] 1-2 [LPF] 0-1 [facility] Lipid Panelon 05-31-2022 Cholesterol [Mass/Vol] 139 mg/dL Low 140-200 [facility] Comment on above: Result Comment: Chol less than 200 mg/dl low risk Chol 201-239 mg/dl borderline risk Chol 240 mg/dl and greater high risk Performed By: #### S OFIANEG, COVID-19 TERE #### [facility] [address] [place] [address] Cholesterol in HDL [Mass/Vol] 73 mg/dL Normal 35-85 [facility] Comment on above: Result Comment: HDL CHOL ATP-III CLASSIFICATION Cardiovascular Risk HDL > or equal to 60 mg/dL LOW HDL < 40 mg/dL HIGH Performed By: #### S OFIANEG, COVID-19 TERE #### [place] [id number] [place] Cholesterol.total/Cho lesterol in HDL [Mass ratio] 1.9 {ratio} Normal <5.0 [facility] Comment on above: Performed By: #### S SANKET ZACARIAS TERE #### [facility] [address] LDL Cholesterol,Calculate d 50 mg/dL Normal 0-100 [facility] Comment on above: Result Comment: LDL ATP III CLASSIFICATION LDL less than 100 mg/dL Optimal LDL 100-129 mg/dL Near or above optimal LDL 130-159 mg/dL Borderline high LDL 160-189 mg/dL High LDL greater than 189 mg/dL Very high Performed By: #### S CRISTIANO ZACARIAS #### [facility] [address] Triglyceride w/Reflex 81 mg/dL Normal 35-149 [facility] Comment on above: Result Comment: TRIG ATP III CLASSIFICATION TRIG less than 150 mg/dL Normal TRIG 150-199 mg/dL Borderline high TRIG 200-500 mg/dL High TRIG greater than 500 mg/dL Very high Standard traceable to the Center for Disease Conrtrol and Prevention (CDC) test method. Performed By: #### S ALLISON ZACARIAS-Raya CARRANZA #### [facility] [address] VLDL CHOLESTEROL 16 mg/dL Normal [facility] Comment on above: Performed By: #### S CRISTIANO ZACARIAS #### [facility] [address] Mucus LM Ql (Urine sed)Order ed By: Reggie Quintana on 05-31-2022 Mucus Ql (Urine sed) 4+ [LPF] [facility] No Panel InformationOrdered By: Reggie Quintana on 05-31-2022 25-Hydroxy Vitamin D Total 13.1 ng/mL 30-100 [facility] Comment on above: VITAMIN D STATUS 25( [place])VITAMIN D RANGE (ng/mL) Deficient <20 Insufficient 20 to <30Sufficient 30 to 100Reference: Ruiz MF,Edgar OLIVAS, MalikCarmela FARMER et al. Evaluation,treatment, and prevention of vitamin D deficiency; an Endocrine Society clinical practice guideline. JCEM. 2010; 96(7):1911-30. Serum or plasma high density lipoprotein (HDL) cholesterol measurementOrdered By: Reggie Quintana on 05-31-2022 Cholesterol in HDL [Mass/Vol] 73 mg/dL 35-85 [facility] Comment on above: HDL CHOL ATP-III CLA SSIFICATION Cardiovascular RiskHDL > or equal to 60 mg/dL LOWHDL < 40 mg/dL HIGH Serum or plasma total choles terol/high density lipoprotein (HDL) cholesterol mass ratOrdered By: Reggie Quintana on 05-31-2022 Cholesterol.total/Cho lesterol in HDL [Mass ratio] 1.9 {ratio} <5.0 [facility] Thyroid Stim Hormone w/Rflxo n 05-31-2022 Thyroid Stim Hormone w/Rflx 2.75 u[iU]/mL Normal 0.45-5.33 [facility] Comment on above: Performed By: #### S DEANN COVID-19 TERE #### [facility] [address] [place] [address] Triglyceride [Mass/volume] i n Serum or PlasmaOrdered By: Reggie Quintana on 05-31-2022 Triglyceride [Mass/Vol] 81 mg/dL 35-149 [facility] Comment on above: TRIG ATP III CLASSIF ICATIONTRIG less than 150 mg/dL NormalTRIG 150-199 mg/dL Borderline highTRIG 200-500 mg/dL High TRIG greater than 500 mg/dL Very highStandard traceable to the Center for Disease Conrtrol and Prevention (CDC) test method. Urine Cultureon 05-31-2022 Bacteria identified Cx Nom (U) <9,000 colonies/ml mixed bacterial skin contaminants 2 Days PERFORMED BY: [place] [address] PATHOLOGIST TUBE PULLER TRACY DICKERSON M.D. Normal [facility] Comment on above: Performed By: #### S DEANN COVID-19 TERE #### [facility] [address] [place] [address] [place] Urine sediment uric acid cry stal count by microscopy (number/high power field)Ordered By: Reggie Quintana on 05-31-2022 Urate crystals LM.HPF (Urine sed) [#/Area] 3+ [HPF] [facility] Vitamin D 25 Hydroxy Totalon 05-31-2022 Vitamin D 25 Hydroxy Total 13.1 ng/mL Low 30-100 [facility] Comment on above: Result Comment: BANDAR MIN D STATUS 25(OH)VITAMIN D RANGE (ng/mL) Deficient <20 Insufficient 20 to <30 Sufficient 30 to 100 Reference: Ruiz MF,Edgar NC, Brenda FARMER, et al. Evaluation,treatment, and prevention of vitamin D deficiency; an Endocrine Society clinical practice guideline. JCEM. 2010; 96(7):1911-30. PERFORMED BY: [place] [address] PATHOLOGIST TUBE PULLER TRACY DICKERSON M.D. Performed By: #### S ALLISON ZACARIAS- TERE #### [facility] [address] CBC AUTO DIFFon 05-30-2022 BASO # 0.0 103/ul Normal 0.0-0.1 [facility] Comment on above: Performed By: #### C BC ####[facility] [address] [place] [address]Dr. Yilan Chi Basophils/100 WBC (Bld) 0.2 % Normal 0.2-2.0 [facility] Comment on above: Performed By: #### C BC ####[facility] [address] [place] [address]Dr. Yilan Chi EO # 0.1 103/ul Normal 0.0-0.7 [facility] Comment on above: Performed By: #### C BC ####[facility] [address] [place] [address]Dr. Yilan Chi Eosinophils/100 WBC (Bld) 1.0 % Normal 0.9-7.0 [facility] Comment on above: Performed By: #### C BC ####[facility] [address] [place] [address]Dr. Soniya Chi Erythrocyte distribution width (RBC) [Ratio] 14.4 % Normal 11.0-15.0 [facility] Comment on above: Performed By: #### C BC ####[facility] [address] [place] [address]Dr. Soniya Chi Hematocrit (Bld) [Volume fraction] 30.0 % Critically low 36.0-48.0 [facility] Comment on above: Performed By: #### C BC ####[facility] [address] [place], [place] [address]Dr. Gypsyjuan Chi Hemoglobin (Bld) [Mass/Vol] 9.7 g/dL Critically low 12.0-16.0 [facility] Comment on above: Performed By: #### C BC ####[facility] [address] [place], [place] [address]Dr. Soniya Chi IG # 0.04 10e3/ul Critically high 0.00-0.03 [facility] Comment on above: Performed By: #### C BC ####[facility] [address] [place], [place] [address]Dr. Soniya Chi IG % 0.5 % Normal 0.0-0.5 [facility] Comment on above: Performed By: #### C BC ####[facility] [address] [place], [place] [address]Dr. Soniya Chi LYMPH # 0.8 103/ul Critically low 1.2-3.8 [facility] Comment on above: Performed By: #### C BC ####[facility] [address] [place], [place] [address]Dr. Soniya Chi Lymphocytes/100 WBC (Bld) 10.0 % Critically low 20.5-60.0 [facility] Comment on above: Performed By: #### C BC ####[facility] [address] [place], [place] [address]Dr. Soniya Chi MANUAL DIFF REQ NO Normal [facility] Comment on above: Performed By: #### C BC ####[facility] [address] [place] [id number]. Soniya Chi MCH (RBC) [Entitic mass] 29.8 pg Normal 26.7-34.0 [facility] Comment on above: Performed By: #### C BC ####[facility] Cvnswplpqi8839 [place] [address]Dr. Soniya Chi MCHC (RBC) [Mass/Vol] 32.3 g/dL Normal 29.9-35.2 [facility] Comment on above: Performed By: #### C BC ####[facility] Iaknffbign[address] [place], [place] [address]Dr. Soniya Chi MCV (RBC) [Entitic vol] 92.3 fL Normal 81.0-99.0 [facility] Comment on above: Performed By: #### C BC ####[facility] Fcfmpyzadp2[address] [place], [place] [address]Dr. Soniya Alon MONO # 0.8 103/ul Normal 0.3-0.8 [facility] Comment on above: Performed By: #### C BC ####[facility] Hptsgwidqa9[address] [place], [place] [address]Dr. Soniya Chi Monocytes/100 WBC (Bld) 9.4 % Normal 1.7-12.0 [facility] Comment on above: Performed By: #### C BC ####[facility] Pvgrlugrbk7904[address] [place], [place] [address]Dr. Soniya Chi NEUT # 6.5 103/ul Normal 1.4-6.5 [facility] Comment on above: Performed By: #### C BC ####[facility] Vrubsvfcxj7[address] [place], [place] [address]Dr. Soniya Alon Neutrophils/100 WBC (Bld) 78.9 % Critically high 43.0-75.0 [facility] Comment on above: Performed By: #### C BC ####[facility] Mxwpkqciyp79[address] [place], [place] [address]Dr. Soniya lAon Platelet mean volume (Bld) [Entitic vol] 10.2 fL Normal 9.5-13.5 [facility] Comment on above: Performed By: #### C BC ####[facility] Ntpfuzbsxm8235 [place] [id number]. Gypsyjuan Alon PLT 103 103/ul Critically low 150-450 [facility] Comment on above: Performed By: #### C BC ####[facility] Sktlralsko2225 [place] [address]Dr. Soniya Chi RBC 3.25 106/ul Critically low 4.20-5.40 [facility] Comment on above: Performed By: #### C BC ####[facility] Ayejotavtf4259 [place] [address]Dr. Gypsyjuan Alon WBC 8.2 103/ul Normal 4.0-11.0 [facility] Comment on above: Performed By: #### C BC ####[facility] Dmzyefcioy8772 [place] [address]Dr. Soniya Chi PROF 14(COMP METB)on 022 Albumin [Mass/Vol] 2.8 g/dL Critically low 3.4-5.0 [facility] Comment on above: Performed By: #### C MP ####[facility] Bpmnqykzll8785 [place] [address]Dr. Soniya Chi Albumin/Globulin [Mass ratio] 0.8 {ratio} Normal [facility] Comment on above: Performed By: #### C MP ####[facility] Asvyilaqyz5178 [place] [address]Dr. Soniya Chi ALP [Catalytic activity/Vol] 78 U/L Normal 46-116 [facility] Comment on above: Performed By: #### C MP ####[facility] Rltaltszby4062 [place] [address]Dr. Soniya Chi ALT [Catalytic activity/Vol] 26 U/L Normal 14-59 [facility] Comment on above: Performed By: #### C MP ####[facility] Qgoqbgftgw9290 [place] [address]Dr. Soniya Chi Anion gap [Moles/Vol] 11.3 mmol/L Normal [facility] Comment on above: Performed By: #### C MP ####[facility] Hlkkhdafrn3011 [place], [place] [address]Ly. Soniya Chi AST [Catalytic activity/Vol] 35 U/L Normal 15-37 [facility] Comment on above: Performed By: #### C MP ####[facility] Clokanaexw0394 [place], [place] [address]Bn. Soniya Chi Bilirubin [Mass/Vol] 0.9 mg/dL Normal 0.2-1.0 [facility] Comment on above: Performed By: #### C MP ####[facility] Fivukklwkm1834 [place] [address]Dr. Soniya Chi Calcium [Mass/Vol] 9.2 mg/dL Normal 8.5-10.1 [facility] Comment on above: Performed By: #### C MP ####[facility] Gfdqieqvxb3555 [place] [address]Dr. Soniya Chi Chloride [Moles/Vol] 113 mmol/L Critically high 98-107 [facility] Comment on above: Performed By: #### C MP ####[facility] Gcupeojisc2521 [place] [address]Dr. Soniya Chi CO2 [Moles/Vol] 26.5 mmol/L Normal 21.0-32.0 [facility] [place] [facility] Comment on above: Performed By: #### C MP ####[facility] Zrjwsfvvuy5061 [place] [phone]. Soniya Chi Creatinine [Mass/Vol] 1.21 mg/dL Critically high 0.55-1.02 [facility] Comment on above: Performed By: #### C MP ####[facility] Rrfqgxiiwi4040 [place] [address]Dr. Soniya Chi EGFR-AF IRISH 54 mL/min/1.73m2 Critically low >=60 [facility] Comment on above: Performed By: #### C MP ####[facility] Cdhaibfljp9453 [place] [address]Dr. Soniya Chi EGFR-NON AF IRISH 44 mL/min/1.73m2 Critically low >=60 [facility] Comment on above: Performed By: #### C MP ####[facility] Tkkzjzgjjj2242 [place] [phone]. Soniya Chi Globulin (S) [Mass/Vol] 3.6 g/dL Normal [facility] Comment on above: Performed By: #### C MP ####[facility] Spfrmofuvm6216 [place] [address]Dr. Soniya Chi Glucose [Mass/Vol] 101 mg/dL Normal 74-106 [facility] Comment on above: Performed By: #### C MP ####[facility] Nywrjkggun8245 [place] [address]Dr. Gypsyjuan Chi Potassium [Moles/Vol] 3.8 mmol/L Normal 3.5-5.1 [facility] Comment on above: Performed By: #### C MP ####[facility] Isycwvjwug1395 [place] [address]Dr. Soniya Chi Protein [Mass/Vol] 6.4 g/dL Normal 6.4-8.2 [facility] Comment on above: Performed By: #### C MP ####[facility] Cbudjquyhm7642 [place] [address]Dr. Gypsyjuan Chi Sodium [Moles/Vol] 147 mmol/L Critically high 136-145 [facility] Comment on above: Performed By: #### C MP ####[facility] Brhhwhogvi652[address] [place], [place] [address]Dr. Soniya Alon Urea nitrogen [Mass/Vol] 18.0 mg/dL Normal 7.0-18.0 [facility] Comment on above: Performed By: #### C MP ####[facility] Vlnwrrhhgi4519 [place] [address]Dr. Gypsyjuan Chi Urea nitrogen/Creatinine [Mass ratio] 14.9 mg/mg Normal [facility] Comment on above: Performed By: #### C MP ####[facility] Azibvmwjgi5677 [place] [address]Dr. Soniya Chi PROF CHEM 8 (BAS METB)on Anion gap [Moles/Vol] 9.9 mmol/L Normal [facility] Comment on above: Performed By: #### B MP ####[facility] Brnydtepek4204 [place] [phone]. Soniya Chi Calcium [Mass/Vol] 9.0 mg/dL Normal 8.5-10.1 [facility] Comment on above: Performed By: #### B MP ####[facility] Xbwtftpwwh9319 [place] [address]Dr. Soniya Chi Chloride [Moles/Vol] 114 mmol/L Critically high 98-107 [facility] Comment on above: Performed By: #### B MP ####[facility] Slccfikfrf0742 [place] [address]Dr. Soniya Chi CO2 [Moles/Vol] 28.0 mmol/L Normal 21.0-32.0 [facility] [place] [facility] Comment on above: Performed By: #### B MP ####[facility] Jybznjcslq8[address] [place], [place] [address]Dr. Soniya Chi Creatinine [Mass/Vol] 1.37 mg/dL Critically high 0.55-1.02 [facility] Comment on above: Performed By: #### B MP ####[facility] Jncirxpfjc7523[address] [place], [place] [address]Dr. Soniya Chi EGFR-AF IRISH 47 mL/min/1.73m2 Critically low >=60 [facility] Comment on above: Performed By: #### B MP ####[facility] Aaxacmltsb395[address] [place], [place] [address]Dr. Soniya Chi EGFR-NON AF IRISH 38 mL/min/1.73m2 Critically low >=60 [facility] Comment on above: Performed By: #### B MP ####[facility] Qrbwihrwxu829[address] [place], [place] [address]Dr. Soniya Chi Glucose [Mass/Vol] 104 mg/dL Normal 74-106 [facility] Comment on above: Performed By: #### B MP ####[facility] Bnembxpjbe348[address] [place], [place] [address]Dr. Soniya Chi Potassium [Moles/Vol] 2.9 mmol/L Critically low 3.5-5.1 [facility] Comment on above: Performed By: #### B MP ####[facility] Lzzajyxacu9939 [place] [address]Dr. Soniya Chi Sodium [Moles/Vol] 147 mmol/L Critically high 136-145 [facility] Comment on above: Performed By: #### B MP ####[facility] Gprdwrlnhv97[address] [place], [place] [address]Dr. Soniya Chi Urea nitrogen [Mass/Vol] 18.0 mg/dL Normal 7.0-18.0 [facility] Comment on above: Performed By: #### B MP ####[facility] Seefjegmvk494[address] [place], [place] [address]Dr. Soniya Alon Urea nitrogen/Creatinine [Mass ratio] 13.1 mg/mg Normal [facility] Comment on above: Performed By: #### B MP ####[facility] Sylxhqrmip[address] [place], [place] [address]Dr. Soniya Alon CBC AUTO DIFFon 05-29-2022 BASO # 0.0 103/ul Normal 0.0-0.1 [facility] Comment on above: Performed By: #### C BC ####[facility] Enkniwcabc3701[address] [place], [place] [address]Dr. Soniya Alon Basophils/100 WBC (Bld) 0.2 % Normal 0.2-2.0 [facility] Comment on above: Performed By: #### C BC ####[facility] Ugkhwzogbt765[address] [place], [place] [address]Dr. Soniya Alon EO # 0.0 103/ul Normal 0.0-0.7 [facility] Comment on above: Performed By: #### C BC ####[facility] Hnztpgfgmu9[address] [place], [place] [address]Dr. Soniya Alon Eosinophils/100 WBC (Bld) 0.5 % Critically low 0.9-7.0 [facility] Comment on above: Performed By: #### C BC ####[facility] Xlrfujptak512[address] [place], [place] [address]Dr. Soniya Alon Erythrocyte distribution width (RBC) [Ratio] 14.3 % Normal 11.0-15.0 [facility] Comment on above: Performed By: #### C BC ####[facility] Pwymkvljon2942 [place] [address]Dr. Soniya Chi Hematocrit (Bld) [Volume fraction] 30.1 % Critically low 36.0-48.0 [facility] Comment on above: Performed By: #### C BC ####[facility] Xudkwukkhn8140 [place] [address]Dr. Soniya Chi Hemoglobin (Bld) [Mass/Vol] 9.7 g/dL Critically low 12.0-16.0 [facility] Comment on above: Performed By: #### C BC ####[facility] Oyfuelizog8120[address] [place], [place] [address]Dr. Soniya Chi IG # 0.02 10e3/ul Normal 0.00-0.03 [facility] Comment on above: Performed By: #### C BC ####[facility] Euwnlvqcfx7130[address] [place], [place] [address]Dr. Soniya Chi IG % 0.3 % Normal 0.0-0.5 [facility] Comment on above: Performed By: #### C BC ####[facility] Zbqipujrgr9[address] [place], [place] [address]DrKarolina Chi LYMPH # 0.9 103/ul Critically low 1.2-3.8 [facility] Comment on above: Performed By: #### C BC ####[facility] Ujncvhbcaf827[address] [place], [place] [address]DrKarolina Chi Lymphocytes/100 WBC (Bld) 13.8 % Critically low 20.5-60.0 [facility] Comment on above: Performed By: #### C BC ####[facility] Bqlooiffge[address] [place], [place] [address]DrKarolina Chi MANUAL DIFF REQ NO Normal [facility] Comment on above: Performed By: #### C BC ####[facility] Oonelikmys360[address] [place], [place] [address]Dr. Soniya Chi MCH (RBC) [Entitic mass] 29.8 pg Normal 26.7-34.0 [facility] Comment on above: Performed By: #### C BC ####[facility] Thvwcvoecn2528 [place] [phone]. Soniya Alon MCHC (RBC) [Mass/Vol] 32.2 g/dL Normal 29.9-35.2 [facility] Comment on above: Performed By: #### C BC ####[facility] Ryjukbzzuk0215 [place] [phone] Chi MCV (RBC) [Entitic vol] 92.6 fL Normal 81.0-99.0 [facility] Comment on above: Performed By: #### C BC ####[facility] Sdsrfwpbug538[address] [place], [place] [address]DrKarolina Chi MONO # 0.7 103/ul Normal 0.3-0.8 [facility] Comment on above: Performed By: #### C BC ####[facility] Ftzhhltdnd[address] [place], [place] [address]Dr. Soniya Chi Monocytes/100 WBC (Bld) 10.5 % Normal 1.7-12.0 [facility] Comment on above: Performed By: #### C BC ####[facility] Cuukmxvxxb2890[address] [place], [place] [address]Dr. Soniya Chi NEUT # 4.8 103/ul Normal 1.4-6.5 [facility] Comment on above: Performed By: #### C BC ####[facility] Pbxylxjfim2540[address] [place], [place] [address]Dr. Soniya Chi Neutrophils/100 WBC (Bld) 74.7 % Normal 43.0-75.0 [facility] Comment on above: Performed By: #### C BC ####[facility] Qrpwvthden[address] [place], [place] [address]DrKarolina Chi Platelet mean volume (Bld) [Entitic vol] 10.6 fL Normal 9.5-13.5 [facility] Comment on above: Performed By: #### C BC ####[facility] Dlohqiiszf[address] [place], [place] [address]DrKarolina Chi PLT 114 103/ul Critically low 150-450 [facility] Comment on above: Performed By: #### C BC ####[facility] Nhvtxjjpum6179 [place] [address]DrKarolina Chi RBC 3.25 106/ul Critically low 4.20-5.40 [facility] Comment on above: Performed By: #### C BC ####[facility] Eippbidfta5457 [place] [address]DrKarolina Chi WBC 6.4 103/ul Normal 4.0-11.0 [facility] Comment on above: Performed By: #### C BC ####[facility] Lstasdzalk4369 [place] [phone] Chi CORTISOLon 05-29-2022 Cortisol 24.0 ug/dL Normal [facility] Comment on above: Result Comment: Javi isol AM 6.2 - 19.4 Cortisol PM 2.3 - 11.9 Performed By: #### C ORTISO ####[facility] Lbbyxktjel4916[address] [place], [place] [address]DrKarolina Chi CULTURE URINEon 05-29-2022 CULTURE URINE Normal [facility] Comment on above: Performed By: #### U RCX ####[facility] Muziboogch5[address] [place], [place] [address]DrKarolina Chi PROF CHEM 8 (BAS METB)on Anion gap [Moles/Vol] 11.9 mmol/L Normal [facility] Comment on above: Performed By: #### B MP ####[facility] Exdkhopzvl2789 [place] [address]DrKarolina Chi Calcium [Mass/Vol] 9.6 mg/dL Normal 8.5-10.1 [facility] Comment on above: Performed By: #### B MP ####[facility] Uzganszohm713[address] [place], [place] [address]DrKarolina Chi Chloride [Moles/Vol] 110 mmol/L Critically high 98-107 [facility] Comment on above: Performed By: #### B MP ####[facility] Ofrrwxmjzl314[address] [place], [place] [address]Dr. Soniya Chi CO2 [Moles/Vol] 25.4 mmol/L Normal 21.0-32.0 [facility] [place] [facility] Comment on above: Performed By: #### B MP ####[facility] Drsyyobeak6637 [place] [address]Dr. Soniya Chi Creatinine [Mass/Vol] 1.24 mg/dL Critically high 0.55-1.02 [facility] Comment on above: Performed By: #### B MP ####[facility] Tkpytmvrll6929 [place] [address]Dr. Soniya Chi EGFR-AF IRISH 52 mL/min/1.73m2 Critically low >=60 [facility] Comment on above: Performed By: #### B MP ####[facility] Gejifzresf628[address] [place], [place] [address]Dr. Soniya Chi EGFR-NON AF IRISH 43 mL/min/1.73m2 Critically low >=60 [facility] Comment on above: Performed By: #### B MP ####[facility] Abriqyfmjr8965[address] [place], [place] [address]Dr. Soniya Chi Glucose [Mass/Vol] 111 mg/dL Critically high 74-106 [facility] Comment on above: Performed By: #### B MP ####[facility] Kwafjxalzp8947[address] [place], [place] [address]Dr. Soniya Alon Potassium [Moles/Vol] 3.3 mmol/L Critically low 3.5-5.1 [facility] Comment on above: Performed By: #### B MP ####[facility] Cwtmuoryec7900 [place] [address]Dr. Soniya Chi Sodium [Moles/Vol] 144 mmol/L Normal 136-145 [facility] Comment on above: Performed By: #### B MP ####[facility] Vfudhwctog369[address] [place], [place] [address]Dr. Soniya Chi Urea nitrogen [Mass/Vol] 17.0 mg/dL Normal 7.0-18.0 [facility] Comment on above: Performed By: #### B MP ####[facility] Rscdgtjbnf7090 [place] [address]Dr. Soniya Chi Urea nitrogen/Creatinine [Mass ratio] 13.7 mg/mg Normal [facility] Comment on above: Performed By: #### B MP ####[facility] Ngauwwnogh4864[address] [place], [place] [address]Dr. Soniya Chi CBC AUTO DIFFon 05-28-2022 BASO # 0.0 103/ul Normal 0.0-0.1 [facility] Comment on above: Performed By: #### C BC ####[facility] Jtqyidkqvb8[address] [place], [place] [address]Dr. Soniya Chi Basophils/100 WBC (Bld) 0.2 % Normal 0.2-2.0 [facility] Comment on above: Performed By: #### C BC ####[facility] Mtlgyxedje524[address] [place], [place] [address]Dr. Soniya Chi EO # 0.0 103/ul Normal 0.0-0.7 [facility] Comment on above: Performed By: #### C BC ####[facility] Sgqjwxztsr007[address] [place], [place] [address]Dr. Soniya Chi Eosinophils/100 WBC (Bld) 0.3 % Critically low 0.9-7.0 [facility] Comment on above: Performed By: #### C BC ####[facility] Jazmpsdsrm[address] [place], [place] [address]Dr. Soniya Chi Erythrocyte distribution width (RBC) [Ratio] 14.4 % Normal 11.0-15.0 [facility] Comment on above: Performed By: #### C BC ####[facility] Ookeutluwr[address] [place], [place] [address]Dr. Soniya Chi Hematocrit (Bld) [Volume fraction] 30.3 % Critically low 36.0-48.0 [facility] Comment on above: Performed By: #### C BC ####[facility] Hfirekxnru468[address] [place], [place] [address]Dr. Soniya Chi Hemoglobin (Bld) [Mass/Vol] 9.9 g/dL Critically low 12.0-16.0 [facility] Comment on above: Performed By: #### C BC ####[facility] Pzrjfhhqgd7505 [place] [phone]. Soniya Chi IG # 0.02 10e3/ul Normal 0.00-0.03 [facility] Comment on above: Performed By: #### C BC ####[facility] Sokajeluje4591 [place] [address]Dr. Soniya Chi IG % 0.3 % Normal 0.0-0.5 [facility] Comment on above: Performed By: #### C BC ####[facility] Waxdvihsbq0006 [place] [address]Dr. Soniya Chi LYMPH # 0.7 103/ul Critically low 1.2-3.8 [facility] Comment on above: Performed By: #### C BC ####[facility] Uzsfzbpnfm1206 [place] [address]Dr. Gypsyjuan Chi Lymphocytes/100 WBC (Bld) 11.7 % Critically low 20.5-60.0 [facility] Comment on above: Performed By: #### C BC ####[facility] Rbznwbedcy6805 [place] [address]Dr. Soniya Chi MANUAL DIFF REQ NO Normal [facility] Comment on above: Performed By: #### C BC ####[facility] Ktexffcdxc3763 [place] [address]Dr. Soniya Chi MCH (RBC) [Entitic mass] 29.8 pg Normal 26.7-34.0 [facility] Comment on above: Performed By: #### C BC ####[facility] Airmkjsdsi50[address] [place], [place] [address]Dr. Soniya Chi MCHC (RBC) [Mass/Vol] 32.7 g/dL Normal 29.9-35.2 [facility] Comment on above: Performed By: #### C BC ####[facility] Fmtxtupmsw8317 [place] [address]Dr. Soniya Chi MCV (RBC) [Entitic vol] 91.3 fL Normal 81.0-99.0 [facility] Comment on above: Performed By: #### C BC ####[facility] Natcqmsdim6142 [place] [address]Dr. Soniya Chi MONO # 0.5 103/ul Normal 0.3-0.8 [facility] Comment on above: Performed By: #### C BC ####[facility] Btjmpgstng1315 [place] [address]Dr. Soniya Chi Monocytes/100 WBC (Bld) 8.3 % Normal 1.7-12.0 [facility] Comment on above: Performed By: #### C BC ####[facility] Ypdclumszq1900 [place] [address]Dr. Soniya Chi NEUT # 4.8 103/ul Normal 1.4-6.5 [facility] Comment on above: Performed By: #### C BC ####[facility] Tfhrjbaltf6922 [place] [address]Dr. Soniya Chi Neutrophils/100 WBC (Bld) 79.2 % Critically high 43.0-75.0 [facility] Comment on above: Performed By: #### C BC ####[facility] Vjyesdwkvy9314 [place] [address]Dr. Soniya Chi Platelet mean volume (Bld) [Entitic vol] 10.4 fL Normal 9.5-13.5 [facility] Comment on above: Performed By: #### C BC ####[facility] Ynqdoalvvy6459 [place] [address]Dr. Soniya Chi PLT 112 103/ul Critically low 150-450 [facility] Comment on above: Performed By: #### C BC ####[facility] Dxwisvxise3680 [place] [address]Dr. Soniya Chi RBC 3.32 106/ul Critically low 4.20-5.40 [facility] Comment on above: Performed By: #### C BC ####[facility] Jfvlhowmwd6663 [place] [address]Dr. Soniya Chi WBC 6.1 103/ul Normal 4.0-11.0 [facility] Comment on above: Performed By: #### C BC ####[facility] Ajxmmwesgm8997 [place] [address]Dr. Soniya Chi BASO # 0.0 103/ul Normal 0.0-0.1 [facility] Comment on above: Performed By: #### C BC ####[facility] Afgivxkshn3988 [place] [address]Dr. Soniya Chi Basophils/100 WBC (Bld) 0.2 % Normal 0.2-2.0 [facility] Comment on above: Performed By: #### C BC ####[facility] Zkulmpghjp2262 [place] [address]Dr. Soniya Chi EO # 0.1 103/ul Normal 0.0-0.7 [facility] Comment on above: Performed By: #### C BC ####[facility] Kjvlhufvfw2429 [place] [address]Dr. Soniya Chi Eosinophils/100 WBC (Bld) 1.1 % Normal 0.9-7.0 [facility] Comment on above: Performed By: #### C BC ####[facility] Pbcnxuwjfk2478 [place] [phone]. Soniya Chi Erythrocyte distribution width (RBC) [Ratio] 14.1 % Normal 11.0-15.0 [facility] Comment on above: Performed By: #### C BC ####[facility] Jfsbfwbhwb9329 [place] [phone]. Soniya Chi Hematocrit (Bld) [Volume fraction] 31.3 % Critically low 36.0-48.0 [facility] Comment on above: Performed By: #### C BC ####[facility] Xkdxtoanew1057 [place] [phone]. Soniya Chi Hemoglobin (Bld) [Mass/Vol] 10.5 g/dL Critically low 12.0-16.0 [facility] Comment on above: Performed By: #### C BC ####[facility] Fxmgppltdd6047 [place] [phone]. Soniya Chi IG # 0.02 10e3/ul Normal 0.00-0.03 [facility] Comment on above: Performed By: #### C BC ####[facility] Repexutfny8792 [place] [id number]. Soniya Chi IG % 0.3 % Normal 0.0-0.5 [facility] Comment on above: Performed By: #### C BC ####[facility] Hybjgfmlzf4397 [place], [place] [address]Oi. Soniya Chi LYMPH # 0.8 103/ul Critically low 1.2-3.8 The [facility] Comment on above: Performed By: #### C BC ####[facility] Vcnaeehcvc2785 [place] [id number]. Soniya Chi Lymphocytes/100 WBC (Bld) 13.4 % Critically low 20.5-60.0 [facility] Comment on above: Performed By: #### C BC ####[facility] Onybwofgts5349 [place] [phone]. Soniya Chi MANUAL DIFF REQ NO Normal [facility] Comment on above: Performed By: #### C BC ####[facility] Enxpwjmgvl6900 [place] [phone]. Soniya Chi MCH (RBC) [Entitic mass] 30.1 pg Normal 26.7-34.0 [facility] Comment on above: Performed By: #### C BC ####[facility] Pxjmlaznex9002 [place] [phone]. Soniya Chi MCHC (RBC) [Mass/Vol] 33.5 g/dL Normal 29.9-35.2 [facility] Comment on above: Performed By: #### C BC ####[facility] Xnllgqthho7110 [place] [id number]. Soniya Chi MCV (RBC) [Entitic vol] 89.7 fL Normal 81.0-99.0 [facility] Comment on above: Performed By: #### C BC ####[facility] Cfzrcchjis4338 [place] [id number]. Soniya Chi MONO # 0.6 103/ul Normal 0.3-0.8 [facility] Comment on above: Performed By: #### C BC ####[facility] Mecpouchew2566 [place] [id number]. Soniya Chi Monocytes/100 WBC (Bld) 9.8 % Normal 1.7-12.0 [facility] Comment on above: Performed By: #### C BC ####[facility] Nghaksoeop6040 [place], [place] [address]Kn. Soniya Chi NEUT # 4.6 103/ul Normal 1.4-6.5 [facility] Comment on above: Performed By: #### C BC ####[facility] Obscqilbnd4474 [place] [phone]. Soniya Chi Neutrophils/100 WBC (Bld) 75.2 % Critically high 43.0-75.0 [facility] Comment on above: Performed By: #### C BC ####[facility] Lfxxzyhjdn1939 [place] [phone]. Soniya Chi Platelet mean volume (Bld) [Entitic vol] 10.6 fL Normal 9.5-13.5 [facility] Comment on above: Performed By: #### C BC ####[facility] Nxmhxtohco1738 [place] [phone]. Soniya Chi PLT 128 103/ul Critically low 150-450 [facility] Comment on above: Performed By: #### C BC ####[facility] Vuvmhjrtaf6639 [place] [phone]. Soniya Chi RBC 3.49 106/ul Critically low 4.20-5.40 [facility] Comment on above: Performed By: #### C BC ####[facility] Tvynbtokyv2922 [place] [phone]. Soniya Chi WBC 6.1 103/ul Normal 4.0-11.0 [facility] Comment on above: Performed By: #### C BC ####[facility] Lwcpstvzqs1151 [place] [phone]. Soniya Chi FREE T4on 05-28-2022 Free T4 [Mass/Vol] 0.93 ng/dL Normal 0.76-1.46 [facility] Comment on above: Performed By: #### B 12FOL, FT4, FETIBC ####[facility] Qkpgulrpoc8927 [place] [address]Dr. Soniya Chi IRON AND TIBCon 05-28-2022 % SATURATION 32.6 % Normal [facility] Comment on above: Performed By: #### B 12FOL, FT4, FETIBC ####[facility] Pjqwobmlrh9201 [place] [address]Dr. Soniya Chi Iron [Mass/Vol] 94.0 ug/dL Normal 50.0-170.0 [facility] Comment on above: Performed By: #### B 12FOL, FT4, FETIBC ####[facility] Qadpfmhhxw2748 [place] [address]Dr. Soniya Chi TIBC DIRECT 288.0 ug/dL Normal 250.0-450.0 [facility] Comment on above: Performed By: #### B 12FOL, FT4, FETIBC ####[facility] Frlvdbqhww5085 [place] [address]Dr. Soniya Chi POINT OF CARE GLUCOSEon - Glucose [Mass/Vol] 123 mg/dL Critically high 74-106 [facility] Comment on above: Performed By: #### P OCGLUC ####[facility] Tnxtesxuta7235 [place] [address]Dr. Soniya Chi PROF CHEM 8 (BAS METB)on Anion gap [Moles/Vol] 11.2 mmol/L Normal [facility] Comment on above: Performed By: #### B MP ####[facility] Husucalcdo5573 [place] [address]Dr. Soniya Chi Calcium [Mass/Vol] 9.0 mg/dL Normal 8.5-10.1 [facility] Comment on above: Performed By: #### B MP ####[facility] Fbyoxdpnjm0169 [place] [address]Dr. Soniya Chi Chloride [Moles/Vol] 108 mmol/L Critically high 98-107 [facility] Comment on above: Performed By: #### B MP ####[facility] Squmqkvttf4058 [place] [address]Dr. Soniya Chi CO2 [Moles/Vol] 26.4 mmol/L Normal 21.0-32.[address] [facility] Comment on above: Performed By: #### B MP ####[facility] Vmsoumdsrr9145 [place] [address]Dr. Soniya Chi Creatinine [Mass/Vol] 1.30 mg/dL Critically high 0.55-1.02 [facility] Comment on above: Performed By: #### B MP ####[facility] Xtbojplvpd[address] [place], [place] [address]Dr. Soniya Chi EGFR-AF IRISH 50 mL/min/1.73m2 Critically low >=60 [facility] Comment on above: Performed By: #### B MP ####[facility] Jqadtvwxec75[address] [place], [place] [address]Dr. Gypsyjuan Alon EGFR-NON AF IRISH 41 mL/min/1.73m2 Critically low >=60 [facility] Comment on above: Performed By: #### B MP ####[facility] Qfuxshgwex65[address] [place], [place] [address]Dr. Soniya Chi Glucose [Mass/Vol] 115 mg/dL Critically high 74-106 [facility] Comment on above: Performed By: #### B MP ####[facility] Ibxqhcibxw106[address] [place], [place] [address]Dr. Gypsyjuan Chi Potassium [Moles/Vol] 3.6 mmol/L Normal 3.5-5.1 [facility] Comment on above: Performed By: #### B MP ####[facility] Rtajcndddh7[address] [place], [place] [address]Dr. Soniya Chi Sodium [Moles/Vol] 142 mmol/L Normal 136-145 [facility] Comment on above: Performed By: #### B MP ####[facility] Fxlfnytskv975[address] [place], [place] [address]Dr. Soniya Chi Urea nitrogen [Mass/Vol] 20.0 mg/dL Critically high 7.0-18.0 [facility] Comment on above: Performed By: #### B MP ####[facility] Dmarghwgxz6942 [place] [phone]. Soniya Chi Urea nitrogen/Creatinine [Mass ratio] 15.4 mg/mg Normal [facility] Comment on above: Performed By: #### B MP ####[facility] Eoyuiplnlx8651 [place] [phone]. Gypsyjuan Chi Anion gap [Moles/Vol] 12.7 mmol/L Normal [facility] Comment on above: Performed By: #### B MP ####[facility] Bjxhlrawcs6014 [place] [address]Dr. Gypsyjuan Alon Calcium [Mass/Vol] 9.1 mg/dL Normal 8.5-10.1 [facility] Comment on above: Performed By: #### B MP ####[facility] Kudurfloln[address] [place], [place] [address]Dr. Soniya Chi Chloride [Moles/Vol] 107 mmol/L Normal 98-107 [facility] Comment on above: Performed By: #### B MP ####[facility] Dypvfpwnia[address] [place], [place] [address]Dr. Soniya Alon CO2 [Moles/Vol] 27.7 mmol/L Normal 21.0-32.[address] [facility] Comment on above: Performed By: #### B MP ####[facility] Oqnoiznhtc319[address] [place], [place] [address]Dr. Soniya Chi Creatinine [Mass/Vol] 1.25 mg/dL Critically high 0.55-1.02 [facility] Comment on above: Performed By: #### B MP ####[facility] Hgmxmosqcl838[address] [place], [place] [address]Dr. Soniya Chi EGFR-AF IRISH 52 mL/min/1.73m2 Critically low >=60 [facility] Comment on above: Performed By: #### B MP ####[facility] Geyuxcfezv12[address] [place], [place] [address]Dr. Soniya Chi EGFR-NON AF IRISH 43 mL/min/1.73m2 Critically low >=60 [facility] Comment on above: Performed By: #### B MP ####[facility] Fuwhfhongk1724 [place] [address]Dr. Soniya Chi Glucose [Mass/Vol] 77 mg/dL Normal 74-106 [facility] Comment on above: Performed By: #### B MP ####[facility] Avkpdowbby12[address] [place], [place] [address]Dr. Soniya Chi Potassium [Moles/Vol] 3.4 mmol/L Critically low 3.5-5.1 [facility] Comment on above: Performed By: #### B MP ####[facility] Egxfogiccp9[address] [place], [place] [address]Dr. Soniya Chi Sodium [Moles/Vol] 144 mmol/L Normal 136-145 [facility] Comment on above: Performed By: #### B MP ####[facility] Uogaxqaech885[address] [place], [place] [address]Dr. Soniya Chi Urea nitrogen [Mass/Vol] 21.0 mg/dL Critically high 7.0-18.0 [facility] Comment on above: Performed By: #### B MP ####[facility] Ynqqjctlbc2223[address] [place], [place] [address]Dr. Soniya Chi Urea nitrogen/Creatinine [Mass ratio] 16.8 mg/mg Normal [facility] Comment on above: Performed By: #### B MP ####[facility] Vxnthpsrnd[address] [place], [place] [address]Dr. Soniya Chi VIT B12 AND FOLATEon 022 Cobalamin (Vitamin B12) [Mass/Vol] 500.0 pg/mL Normal 193.0-986.0 [facility] Comment on above: Performed By: #### B 12FOL, FT4, FETIBC ####[facility] Gyylrxdzzu770[address] [place], [place] [address]Dr. Soniya Chi FOLATE 10.30 ng/mL Normal 8.60-58.90 [facility] Comment on above: Performed By: #### B 12FOL, FT4, FETIBC ####[facility] Pulqenlyrv[address] [place], [place] [address]Dr. Soniya Chi AMMONIAon 05-27-2022 Ammonia (P) [Moles/Vol] 15 umol/L Normal 11-32 [facility] Comment on above: Performed By: #### A MM ####[facility] Sowiyrgoos0834 [place] [address]Dr. Soniya Chi CBC AUTO DIFFon 05-27-2022 BASO # 0.0 103/ul Normal 0.0-0.1 [facility] Comment on above: Performed By: #### C BC ####[facility] Dwzdkpxxvo108[address] [place], [place] [address]Dr. Soniya Chi Basophils/100 WBC (Bld) 0.4 % Normal 0.2-2.0 [facility] Comment on above: Performed By: #### C BC ####[facility] Kzxqxqmigl[address] [place], [place] [address]Dr. Soniya Chi EO # 0.1 103/ul Normal 0.0-0.7 [facility] Comment on above: Performed By: #### C BC ####[facility] Bxpkgvobnf80[address] [place], [place] [address]Dr. Soniya Chi Eosinophils/100 WBC (Bld) 1.5 % Normal 0.9-7.0 [facility] Comment on above: Performed By: #### C BC ####[facility] Keebpztqla70[address] [place], [place] [address]Dr. Soniya Chi Erythrocyte distribution width (RBC) [Ratio] 14.2 % Normal 11.0-15.0 [facility] Comment on above: Performed By: #### C BC ####[facility] Apzsypahbn13[address] [place], [place] [address]Dr. Soniya Chi Hematocrit (Bld) [Volume fraction] 36.0 % Normal 36.0-48.0 [facility] Comment on above: Performed By: #### C BC ####[facility] Fjcigyqbii86[address] [place], [place] [address]Dr. Soniya Chi Hemoglobin (Bld) [Mass/Vol] 11.9 g/dL Critically low 12.0-16.0 [facility] Comment on above: Performed By: #### C BC ####[facility] Ocrabrwiwk2538 [place] [phone]. Soniya Chi IG # 0.02 10e3/ul Normal 0.00-0.03 [facility] Comment on above: Performed By: #### C BC ####[facility] Xirfjesudq1035 [place] [phone]. Soniya Chi IG % 0.4 % Normal 0.0-0.5 [facility] Comment on above: Performed By: #### C BC ####[facility] Dbapkdwgud7544 [place] [address]Dr. Soniya Chi LYMPH # 1.0 103/ul Critically low 1.2-3.8 The [facility] Comment on above: Performed By: #### C BC ####[facility] Xkvtxwgxlg7642 [place] [address]Dr. Soniya Chi Lymphocytes/100 WBC (Bld) 18.1 % Critically low 20.5-60.0 [facility] Comment on above: Performed By: #### C BC ####[facility] Gclujtqbru0194 [place] [address]Dr. Soniya Chi MANUAL DIFF REQ NO Normal [facility] Comment on above: Performed By: #### C BC ####[facility] Kohijbzboo8631 [place] [address]Dr. Soniya Chi MCH (RBC) [Entitic mass] 29.9 pg Normal 26.7-34.0 [facility] Comment on above: Performed By: #### C BC ####[facility] Ijxmkfvtbc3983 [place] [address]Dr. Soniya Chi MCHC (RBC) [Mass/Vol] 33.1 g/dL Normal 29.9-35.2 [facility] Comment on above: Performed By: #### C BC ####[facility] Dqozeqcozv3600 [place] [address]Dr. Soniya Chi MCV (RBC) [Entitic vol] 90.5 fL Normal 81.0-99.0 [facility] Comment on above: Performed By: #### C BC ####[facility] Lrfeqggpsj1236 [place] [phone]. Soniya Chi MONO # 0.3 103/ul Normal 0.3-0.8 [facility] Comment on above: Performed By: #### C BC ####[facility] Jlespurcoa0038 [place] [address]Dr. Soniya Chi Monocytes/100 WBC (Bld) 5.4 % Normal 1.7-12.0 [facility] Comment on above: Performed By: #### C BC ####[facility] Uxyhrnhudl3424 [place] [address]Dr. Soniya Chi NEUT # 4.0 103/ul Normal 1.4-6.5 [facility] Comment on above: Performed By: #### C BC ####[facility] Yrgggzkahq8133 [place] [address]Dr. Soniya Chi Neutrophils/100 WBC (Bld) 74.2 % Normal 43.0-75.0 [facility] Comment on above: Performed By: #### C BC ####[facility] Fgleutawrk3396 [place] [phone]. Soniya Chi Platelet mean volume (Bld) [Entitic vol] 10.0 fL Normal 9.5-13.5 [facility] Comment on above: Performed By: #### C BC ####[facility] Hqptumwhml4333 [place] [phone]. Soniya Chi PLT 140 103/ul Critically low 150-450 The [facility] Comment on above: Performed By: #### C BC ####[facility] Kxheklqvaq8490 [place] [phone]. Soniya Chi RBC 3.98 106/ul Critically low 4.20-5.40 [facility] Comment on above: Performed By: #### C BC ####[facility] Oglizdotov7447 [place] [phone]. Soniya Chi WBC 5.4 103/ul Normal 4.0-11.0 [facility] Comment on above: Performed By: #### C BC ####[facility] Tysjpljqck3097 [place], [place] [address]At. Son[address] Chi CT STROKE HEAD WOon 05-27-[address] STROKE HEAD WO Normal The [facility] CTA HEAD WO W CONon 05-27-20 22 CTA HEAD WO W CON Normal The [facility] CULTURE BLOODon 05-27-2022 Microscopic examination of blood, culture Culture Observations: NO GROWTH AT 5 DAYS. Normal The [facility] Comment on above: Performed By: #### B LDCX2 ####[facility] Coyujucxhy4725 [place] [phone]. Soniya Chi Microscopic examination of blood, culture Culture Observations: NO GROWTH AT 5 DAYS. Normal [facility] Comment on above: Performed By: #### B LDCX1 ####[facility] Coudwtdhgq[address] [place], [place] [address]Dr. Soniya Chi Covid-19 PCR (CVDTBH)on 05-03 SARS-CoV-2 (COVID-19) RNA DORIAN+probe Ql (Unsp spec) Not detected Normal NOT DETECTED [facility] Comment on above: Result Comment: [...] for this test is supported by the [place] [employer] and Human Service's declaration that [...] be used). Performed By: #### C VDTBH ####[facility] Ftnbhanvzw1269 [place] [address]Dr. Soniya Chi ER URINE PROFILEon Bilirubin Ql (U) Negative Normal NEGATIVE The [facility] [place] [facility] Comment on above: Performed By: #### DENIZ WELDONRO ####[facility] Fykqypvoib9366 [place] [address]Dr. Soniya Chi Clarity (U) CLEAR Normal CLEAR [facility] Comment on above: Performed By: #### DENIZ WELDONRO ####[facility] Jwwmnnhmrv6658 [place] [address]Dr. Soniya Chi Color (U) LT. YELLOW Normal YELLOW [facility] Comment on above: Performed By: #### LUIS WELDONICRO ####[facility] Dobtgzzuwh0062 [place] [address]Dr. Soniya Chi ERUAHD A micrscopic examination will be performed if indicated. Normal [facility] Comment on above: Performed By: #### DENIZ WELDONRO ####[facility] Iycmcurftr9[address] [place], [place] [address]Dr. Soniya Chi Glucose Ql (U) Negative Normal NEGATIVE The [facility] Comment on above: Performed By: #### Benoit CARTER ICRO ####[facility] Lhlfvrtjzr[address] [place], [place] [address]Dr. Soniya Chi Hemoglobin Ql (U) Negative Normal NEGATIVE The [facility] Comment on above: Performed By: #### DENIZ WELDONRO ####[facility] Shlbuhwtoz[address] [place], [place] [address]Dr. Soniya Chi Ketones Ql (U) Negative Normal NEGATIVE The [facility] Comment on above: Performed By: #### DENIZ WELDONRO ####[facility] Nunqaysswd7[address] [place], [place] [address]Dr. Soniya Chi LEUKOCYTES SMALL Abnormal NEGATIVE The [facility] Comment on above: Performed By: #### DENIZ WELDONRO ####[facility] Zvguqaokku69[address] [place], [place] [address]Dr. Gypsylan Alon Nitrite Ql (U) Negative Normal NEGATIVE The [facility] Comment on above: Performed By: #### DENIZ WELDONRO ####[facility] Btbcypcofy[address] [place], [place] [address]Dr. Yilan Chi pH (U) 6.0 [pH] Normal 5-9 [facility] Comment on above: Performed By: #### MARCOS WELDON ####[facility] Qsotlqgqgf3033 [place] [address]Dr. Soniya Chi SPEC GRAVITY 1.020 Normal 1.005-<=1.025 [facility] Comment on above: Performed By: #### MARCOS WELDON ####[facility] Gjvvmcswte5118 [place] [address]Dr. Gypsyjuan Chi UA PROTEIN Negative Normal NEGATIVE/ TRACE [facility] Comment on above: Performed By: #### MARCOS WELDON ####[facility] Xeujkqmdgr[address] [place], [place] [address]Dr. Soniya Chi UR MICRO IND INDICATED Normal [facility] Comment on above: Performed By: #### MARCOS WELDON ####[facility] Keloklyfgd254[address] [place], [place] [address]Dr. Soniya Alon Urobilinogen Qn (U) 0.2 {Casimiro'U}/dL Normal 0.2 - 1. 0 [facility] Comment on above: Performed By: #### MARCOS WELDON ####[facility] Zguamnokew2257 [place] [address]Dr. Gypsyjuan Chi FREE T3on 05-27-2022 FREE T3 2.63 pg/mlL Normal 2.18-3.98 [facility] Comment on above: Performed By: #### F T3, TSH ####[facility] Aiveedigif14[address] [place], [place] [address]Dr. Soniya Alon INFLUENZA A AND B AGon 05-27 INFLUANEGH SEE BELOW Normal [facility] Comment on above: Result Comment: Nega tive for Flu A protein angiten. Infection due to Flu A cannot be ruled out. Flu A angiten in the sample may be below the detection limit of the test. Performed By: #### I NFLUAB ####[facility] Dwfxjpxbxe[address] [place], [place] [address]Dr. Soniya Chi INFLUBNEGH SEE BELOW Normal [facility] Comment on above: Result Comment: Nega tive for Flu B protein antigen. Infection due to Flu B cannot be ruled out. Flu B antigen in the sample may be below the detection limit of the test. Performed By: #### I NFLUAB ####[facility] Bffhddmobx125[address] [place], [place] [address]Dr. Soniya Alon INFLUENZA A AG Negative Normal NEGATIVE SEE COMMENT [facility] Comment on above: Performed By: #### I NFLUAB ####[facility] Xwemgcpjzi[address] [place], [place] [address]Dr. Soniya Chi INFLUENZA B AG Negative Normal NEGATIVE SEE COMMENT [facility] Comment on above: Performed By: #### I NFLUAB ####[facility] Vsvfmivonx67[address] [place], [place] [address]Dr. Gypsyjuan Chi INTERNAL CONTROLS Within Normal Limits Normal Within Normal Limits [facility] Comment on above: Performed By: #### I NFLUAB ####[facility] Mfnxucrkwp[address] [place], [place] [address]Dr. Soniya Chi LACTATE/LACTIC ACIDon 2021 Lactate [Moles/Vol] 1.2 mmol/L Normal 0.4-1.9 [facility] Comment on above: Performed By: #### L ACT ####[facility] Ratlsxnyyi[address] [place], [place] [address]Dr. Soniya Alon POINT OF CARE GLUCOSEon 05-03 Glucose [Mass/Vol] 89 mg/dL Normal 74-106 [facility] Comment on above: Performed By: #### P OCGLUC ####[facility] Bgbjjdlezv[address] [place], [place] [address]Dr. Soniya Chi Glucose [Mass/Vol] 89 mg/dL Normal 74-106 The [facility] Comment on above: Performed By: #### P OCGLUC ####[facility] Pidttjhmqj[address] [place], [place] [address]Dr. Soniya Chi PROF 14(COMP METB)on 022 Albumin [Mass/Vol] 3.7 g/dL Normal 3.4-5.0 [facility] Comment on above: Performed By: #### C MP ####[facility] Yudizmqfvr9187 [place] [id number]. Soniya Chi Albumin/Globulin [Mass ratio] 0.9 {ratio} Normal [facility] Comment on above: Performed By: #### C MP ####[facility] Aigdhraggm1115 [place] [id number]. Soniya Chi ALP [Catalytic activity/Vol] 92 U/L Normal 46-116 [facility] Comment on above: Performed By: #### C MP ####[facility] Xnsuaegtap5701 [place] [address]Dr. Soniya Chi ALT [Catalytic activity/Vol] 34 U/L Normal 14-59 [facility] Comment on above: Performed By: #### C MP ####[facility] Kxckccntif9012 [place] [address]Dr. Soniya Chi Anion gap [Moles/Vol] 11.0 mmol/L Normal [facility] Comment on above: Performed By: #### C MP ####[facility] Zwxbhmvuyq1115 [place] [address]Dr. Soniya Chi AST [Catalytic activity/Vol] 19 U/L Normal 15-37 [facility] Comment on above: Performed By: #### C MP ####[facility] Loiywudzzy8834 [place] [address]Dr. Soniya Chi Bilirubin [Mass/Vol] 1.0 mg/dL Normal 0.2-1.0 [facility] Comment on above: Performed By: #### C MP ####[facility] Pmtwdjlpcl7879 [place] [address]Dr. Soniya Chi Calcium [Mass/Vol] 10.2 mg/dL Critically high 8.5-10.1 [facility] Comment on above: Performed By: #### C MP ####[facility] Upqrfvlnkz4081 [place] [address]Dr. Soniya Chi Chloride [Moles/Vol] 103 mmol/L Normal 98-107 [facility] Comment on above: Performed By: #### C MP ####[facility] Jzouprkcfg7677 [place] [phone]. Soniya Chi CO2 [Moles/Vol] 31.6 mmol/L Normal 21.0-32.0 [facility] [place] [facility] Comment on above: Performed By: #### C MP ####[facility] Mhoamowgjr1299 [place] [id number]. Soniya Chi Creatinine [Mass/Vol] 1.15 mg/dL Critically high 0.55-1.02 [facility] Comment on above: Performed By: #### C MP ####[facility] Qioxrvfvmw2040 [place] [id number]. Soniya Chi EGFR-AF IRISH 57 mL/min/1.73m2 Critically low >=60 [facility] Comment on above: Performed By: #### C MP ####[facility] Yzshddkydo0591 [place] [address]Dr. Soniya Chi EGFR-NON AF IRISH 47 mL/min/1.73m2 Critically low >=60 [facility] Comment on above: Performed By: #### C MP ####[facility] Mkfvpncukp7712 [place] [id number]. Soniya Chi Globulin (S) [Mass/Vol] 4.0 g/dL Normal [facility] Comment on above: Performed By: #### C MP ####[facility] Lijikejbgu5781 [place] [address]Dr. Soniya Chi Glucose [Mass/Vol] 82 mg/dL Normal 74-106 [facility] Comment on above: Performed By: #### C MP ####[facility] Hhmsbscrvm9900 [place] [id number]. Soniya Chi Potassium [Moles/Vol] 3.6 mmol/L Normal 3.5-5.1 [facility] Comment on above: Performed By: #### C MP ####[facility] Zulaciydaj7250 [place] [phone]. Soniya Chi Protein [Mass/Vol] 7.7 g/dL Normal 6.4-8.2 [facility] Comment on above: Performed By: #### C MP ####[facility] Zzazgconad0725 [place] [address]Dr. Soniya Chi Sodium [Moles/Vol] 142 mmol/L Normal 136-145 [facility] Comment on above: Performed By: #### C MP ####[facility] Ridyrmcsmt6116 [place] [address]Dr. Soniya Chi Urea nitrogen [Mass/Vol] 31.0 mg/dL Critically high 7.0-18.0 [facility] Comment on above: Performed By: #### C MP ####[facility] Jtqjzwpeox2280 [place] [address]Dr. Soniya Chi Urea nitrogen/Creatinine [Mass ratio] 27.0 mg/mg Normal [facility] Comment on above: Performed By: #### C MP ####[facility] Omqfofdtla[address] [place], [place] [address]Dr. Soniya Chi TSHon 05-27-2022 TSH 8.165 uIU/mL Critically high 0.358-3.740 [facility] Comment on above: Performed By: #### F T3, TSH ####[facility] Mclhcjlcie[address] [place], [place] [address]Dr. Soniya Chi URINE MICROSCOPIC ONLYon BACTERIA TRACE Abnormal NONE SEEN [facility] Comment on above: Performed By: #### DENIZ WELDONRO ####[facility] Zqmzwzhyrk[address] [place], [place] [address]Dr. Soniya Alon Bacteria identified Cx Nom (U) INDICATED Normal [facility] Comment on above: Performed By: #### DENIZ WELDONRO ####[facility] Pbwdiesjkr2338 [place] [address]Dr. Soniya Chi CAST NONE SEEN Normal NONE SEEN [facility] Comment on above: Performed By: #### DENIZ WELDONRO ####[facility] Wfomgeqiof0141 [place] [address]Dr. Soniya Chi Crystals LM Nom (Urine sed) NONE SEEN Normal NONE SEEN [facility] Comment on above: Performed By: #### DENIZ WELDONRO ####[facility] Yuzqtvkgqt1404 [place], [place] [address]Pn. Gypsylan Chi Epithelial cells LM Ql (Urine sed) FEW Abnormal NONE SEEN /RARE [facility] Comment on above: Performed By: #### Benoit ROLLINSR, UMICRO ####[facility] Teobazfdqv0781 [place], [place] [address]Zy. Yilan Chi MUCOUS NONE SEEN Normal NONE SEEN [facility] Comment on above: Performed By: #### Benoit ROLLINSR, UMICRO ####[facility] Cmcnmqbgmk4364 [place], [place] [address]Fo. Yilan Chi RBC NONE SEEN Abnormal 0-2 [facility] Comment on above: Performed By: #### Benoit CARTER, UMMATTHEWRO ####[facility] Vbsfvjzvqy7238 [place], [place] [address]Vw. Soniya Chi WBC 2-5 Abnormal NONE SEEN [facility] Comment on above: Performed By: #### Benoit CARTER, UMMATTHEWRO ####[facility] Mcgmptpyhl4295 [place], [place] [address]Rt. Gypsylan Chi XR CHEST 1 Von 05-27-2022 XR CHEST 1 V Normal [facility] Covid-19 PCR ([facility])on SARS-CoV-2 (COVID-19) RNA DORIAN+probe Ql (Unsp spec) Not detected Normal NOT DETECTED [facility] Comment on above: Result Comment: This test is not yet approved or cleared by the [place] FDA. When there are no FDA-approved or cleared tests available, and other criteria are met, FDA can make tests available under an emergency access mechanism called an Emergency Use Authorization (EUA). The EUA for this test is supported by the [place] of Health and Human Service's (HHS's) declaration [...] with SARS-CoV-2. Performed By: #### C VDTB ####[facility] Koqbnfavhx6990 [place] [address]Dr. Soniya Chi CBC AUTO DIFFon 04-23-2022 BASO # 0.0 103/ul Normal 0.0-0.1 [facility] Comment on above: Performed By: #### C BC ####[facility] Akjioyvurg[address] [place], [place] [address]Dr. Soniya Chi Basophils/100 WBC (Bld) 0.4 % Normal 0.2-2.0 [facility] Comment on above: Performed By: #### C BC ####[facility] Dpgqzzambi[address] [place], [place] [address]Dr. Soniya Chi EO # 0.1 103/ul Normal 0.0-0.7 [facility] Comment on above: Performed By: #### C BC ####[facility] Sywwarsmfc99[address] [place], [place] [address]Dr. Soniya Chi Eosinophils/100 WBC (Bld) 1.9 % Normal 0.9-7.0 [facility] Comment on above: Performed By: #### C BC ####[facility] Tazggpngcm[address] [place], [place] [address]Dr. Soniya Chi Erythrocyte distribution width (RBC) [Ratio] 13.4 % Normal 11.0-15.0 [facility] Comment on above: Performed By: #### C BC ####[facility] Choufehcvd[address] [place], [place] [address]Dr. Soniya Chi Hematocrit (Bld) [Volume fraction] 37.0 % Normal 36.0-48.0 [facility] Comment on above: Performed By: #### C BC ####[facility] Ofarhtvjth[address] [place], [place] [address]Dr. Soniya Chi Hemoglobin (Bld) [Mass/Vol] 12.1 g/dL Normal 12.0-16.0 [facility] Comment on above: Performed By: #### C BC ####[facility] Qrtafurlyl2830 [place] [address]Dr. Soniya Chi IG # 0.01 10e3/ul Normal 0.00-0.03 [facility] Comment on above: Performed By: #### C BC ####[facility] Rsxnmysuso1601 [place] [address]Dr. Soniya Chi IG % 0.2 % Normal 0.0-0.5 [facility] Comment on above: Performed By: #### C BC ####[facility] Ylbvenineq8814 [place] [address]Dr. Soniya Chi LYMPH # 1.8 103/ul Normal 1.2-3.8 [facility] Comment on above: Performed By: #### C BC ####[facility] Gyodvpnkqg9216 [place] [address]Dr. Soniya hCi Lymphocytes/100 WBC (Bld) 30.9 % Normal 20.5-60.0 [facility] Comment on above: Performed By: #### C BC ####[facility] Ezbdaigmso9401 [place] [address]Dr. Soniya Chi MANUAL DIFF REQ NO Normal [facility] Comment on above: Performed By: #### C BC ####[facility] Oyjplvezep8578 [place] [address]Dr. Soniya Chi MCH (RBC) [Entitic mass] 29.7 pg Normal 26.7-34.0 [facility] Comment on above: Performed By: #### C BC ####[facility] Bwxyxpqnbz0609 [place] [address]Dr. Soniya Chi MCHC (RBC) [Mass/Vol] 32.7 g/dL Normal 29.9-35.2 [facility] Comment on above: Performed By: #### C BC ####[facility] Njicrsfrrb1366 [place] [address]Dr. Soniya Chi MCV (RBC) [Entitic vol] 90.7 fL Normal 81.0-99.0 [facility] Comment on above: Performed By: #### C BC ####[facility] Gvygrkbtsc4218 [place] [address]Dr. Soniya Chi MONO # 0.4 103/ul Normal 0.3-0.8 [facility] Comment on above: Performed By: #### C BC ####[facility] Vohejeuqov3216 [place] [address]Dr. Soniya Chi Monocytes/100 WBC (Bld) 6.5 % Normal 1.7-12.0 [facility] Comment on above: Performed By: #### C BC ####[facility] Hnfagbcuqy0111 [place] [address]Dr. Soniya Chi NEUT # 3.4 103/ul Normal 1.4-6.5 [facility] Comment on above: Performed By: #### C BC ####[facility] Unjqpxqdsr8749 [place] [address]Dr. Soniya Chi Neutrophils/100 WBC (Bld) 60.1 % Normal 43.0-75.0 [facility] Comment on above: Performed By: #### C BC ####[facility] Jnmiynkjgt2800 [place] [address]Dr. Soniya Chi Platelet mean volume (Bld) [Entitic vol] 10.0 fL Normal 9.5-13.5 [facility] Comment on above: Performed By: #### C BC ####[facility] Pjlxzweqrb9219 [place] [address]Dr. Soniya Chi PLT 193 103/ul Normal 150-450 [facility] Comment on above: Performed By: #### C BC ####[facility] Lplozrcbei5736 [place] [address]Dr. Soniya Chi RBC 4.08 106/ul Critically low 4.20-5.40 [facility] Comment on above: Performed By: #### C BC ####[facility] Akitptffmr7522 [place] [address]Dr. Soniya Chi WBC 5.7 103/ul Normal 4.0-11.0 [facility] Comment on above: Performed By: #### C BC ####[facility] Kjchxfaoeo5225 [place] [phone]. Soniya Chi FREE T3on 04-23-2022 FREE T3 2.90 pg/mlL Normal 2.18-3.98 [facility] Comment on above: Performed By: #### F T3, LIPID, CMP, TSH ####[facility] Bzgtaftaop6437 [place], [place] [address]Bu. Soniya Chi FREE T4on 04-23-2022 Free T4 [Mass/Vol] 0.91 ng/dL Normal 0.76-1.46 [facility] Comment on above: Performed By: #### F T4 ####[facility] Nvzphbqlmz9686 [place] [phone]. Soniya Chi LIPID PROFILEon 04-23-2022 CHOL-HDL RATIO NORM SEE BELOW Normal [facility] Comment on above: Result Comment: 3.3 - 4.4 LOW RISK 4.4 - 7.1 AVERAGE RISK 7.1 - 11.0 MODERATE RISK >11.0 HIGH RISK Performed By: #### F T3, LIPID, CMP, TSH ####[facility] Avcbmqalnx6143 [place] [phone]. Soniya Chi Cholesterol [Mass/Vol] 211 mg/dL Critically high <=200 [facility] Comment on above: Performed By: #### F T3, LIPID, CMP, TSH ####[facility] Dxqjwjtksl3270 [place], [place] [address]Zz. Soniya Chi Cholesterol in HDL [Mass/Vol] 109 mg/dL Critically high 40-60 [facility] Comment on above: Performed By: #### F T3, LIPID, CMP, TSH ####[facility] Bgknerveuz8810 [place], [place] [address]Rz. Soniya Chi Cholesterol in LDL [Mass/Vol] 70.2 mg/dL Normal [facility] Comment on above: Performed By: #### F T3, LIPID, CMP, TSH ####[facility] Wsktgyhwia9777 [place] [phone]. Soniya Chi Cholesterol.total/Cho lesterol in HDL [Mass ratio] 1.9 {ratio} Normal [facility] Comment on above: Performed By: #### F T3, LIPID, CMP, TSH ####[facility] Vweqtmsinu5812 [place] [address]Dr. Soniya Chi HDL NORMAL > or = 60 mg/dl - LOW CARDIOVASCULAR RISK <40 mg/dl - HIGH CARDIOVASCULAR RISK Normal [facility] Comment on above: Performed By: #### F T3, LIPID, CMP, TSH ####[facility] Dkvjhmtfgh6925 [place] [address]Dr. Soniya Chi LDL CALC NORMAL SEE BELOW Normal [facility] Comment on above: Result Comment: <100 mg/dl OPTIMAL 100 - 129 mg/dl NEAR OR ABOVE OPTIMAL 130 - 159 mg/dl BORDERLINE HIGH 160 - 189 mg/dl HIGH >190 mg/dl VERY HIGH Performed By: #### F T3, LIPID, CMP, TSH ####[facility] Pfasediutz6136 [place] [address]Dr. Soniya Chi Triglyceride [Mass/Vol] 159 mg/dL Critically high <=150 [facility] Comment on above: Performed By: #### F T3, LIPID, CMP, TSH ####[facility] Qkjtvsdetu5627 [place] [address]Dr. Soniya Chi VLDL CALC 31.8 mg/dL Normal [facility] Comment on above: Performed By: #### F T3, LIPID, CMP, TSH ####[facility] Giahfunwio2831 [place] [address]Dr. Soniya Chi PROF 14(COMP METB)on 022 Albumin [Mass/Vol] 3.9 g/dL Normal 3.4-5.0 [facility] Comment on above: Performed By: #### F T3, LIPID, CMP, TSH ####[facility] Prulfirlqt4116 [place] [address]Dr. Soniya Chi Albumin/Globulin [Mass ratio] 1.0 {ratio} Normal [facility] Comment on above: Performed By: #### F T3, LIPID, CMP, TSH ####[facility] Wujsimhnvy9228 [place] [address]Dr. Soniya Chi ALP [Catalytic activity/Vol] 76 U/L Normal 46-116 [facility] Comment on above: Performed By: #### F T3, LIPID, CMP, TSH ####[facility] Zmvdxnubdo4742 [place] [address]Dr. Soniya Chi ALT [Catalytic activity/Vol] 35 U/L Normal 14-59 [facility] Comment on above: Performed By: #### F T3, LIPID, CMP, TSH ####[facility] Ojklmtwssb0545 [place] [address]Dr. Soniya Chi Anion gap [Moles/Vol] 11.8 mmol/L Normal Th [facility] Comment on above: Performed By: #### F T3, LIPID, CMP, TSH ####[facility] Ojjzicwcae5560 [place] [address]Dr. Soniya Chi AST [Catalytic activity/Vol] 14 U/L Critically low 15-37 [facility] Comment on above: Performed By: #### F T3, LIPID, CMP, TSH ####[facility] Zkphyaygxh[address] [place], [place] [address]Dr. Soniya Chi Bilirubin [Mass/Vol] 0.6 mg/dL Normal 0.2-1.0 [facility] Comment on above: Performed By: #### F T3, LIPID, CMP, TSH ####[facility] Atugtbscbm[address] [place], [place] [address]Dr. Soniya Chi Calcium [Mass/Vol] 10.1 mg/dL Normal 8.5-10.1 [facility] Comment on above: Performed By: #### F T3, LIPID, CMP, TSH ####[facility] Dfmvmvgbrw0366 [place] [address]Dr. Soniya Chi Chloride [Moles/Vol] 103 mmol/L Normal 98-107 [facility] Comment on above: Performed By: #### F T3, LIPID, CMP, TSH ####[facility] Kcduqruwzb[address] [place], [place] [address]Dr. Soniya Chi CO2 [Moles/Vol] 29.8 mmol/L Normal 21.0-32.[address] [facility] Comment on above: Performed By: #### F T3, LIPID, CMP, TSH ####[facility] Muymsnfpjw5254 [place] [address]Dr. Soniya Alon Creatinine [Mass/Vol] 1.17 mg/dL Critically high 0.55-1.02 [facility] Comment on above: Performed By: #### F T3, LIPID, CMP, TSH ####[facility] Jqldihfuky1631 [place] [address]Dr. Soniya Alon EGFR-AF IRISH 56 mL/min/1.73m2 Critically low >=60 [facility] Comment on above: Performed By: #### F T3, LIPID, CMP, TSH ####[facility] Gregvxkfdv1085 [place] [address]Dr. Gypsyjuan Chi EGFR-NON AF IRISH 46 mL/min/1.73m2 Critically low >=60 [facility] Comment on above: Performed By: #### F T3, LIPID, CMP, TSH ####[facility] Lnrvursiwy5768 [place] [address]Dr. Soniya Chi Globulin (S) [Mass/Vol] 3.9 g/dL Normal [facility] Comment on above: Performed By: #### F T3, LIPID, CMP, TSH ####[facility] Srigupumcp0778 [place] [address]Dr. Soniya Chi Glucose [Mass/Vol] 94 mg/dL Normal 74-106 The [facility] Comment on above: Performed By: #### F T3, LIPID, CMP, TSH ####[facility] Pmpczzddcq1496 [place] [address]Dr. Soniya Chi Potassium [Moles/Vol] 3.6 mmol/L Normal 3.5-5.1 [facility] Comment on above: Performed By: #### F T3, LIPID, CMP, TSH ####[facility] Hfacrorlxq1525 [place] [address]Dr. Soniya Chi Protein [Mass/Vol] 7.8 g/dL Normal 6.4-8.2 [facility] Comment on above: Performed By: #### F T3, LIPID, CMP, TSH ####[facility] Ultazpuvop6172 [place] [address]Dr. Soniya Chi Sodium [Moles/Vol] 141 mmol/L Normal 136-145 [facility] Comment on above: Performed By: #### F T3, LIPID, CMP, TSH ####[facility] Asbemsdbot5365 [place] [address]Dr. Soniya Chi Urea nitrogen [Mass/Vol] 27.0 mg/dL Critically high 7.0-18.0 [facility] Comment on above: Performed By: #### F T3, LIPID, CMP, TSH ####[facility] Wemmzakaja3694 [place] [address]Dr. Soniya Chi Urea nitrogen/Creatinine [Mass ratio] 23.1 mg/mg Normal [facility] Comment on above: Performed By: #### F T3, LIPID, CMP, TSH ####[facility] Csdvptxqqg0267 [place] [address]Dr. Soniya Chi TSHon 04-23-2022 TSH 3.933 uIU/mL Critically high 0.358-3.740 [facility] Comment on above: Performed By: #### F T3, LIPID, CMP, TSH ####[facility] Koixickqdb[address] [place], [place] [address]Dr. Soniya Chi UA (CLEAN/CATCH) HIGHBALLER/MICRO I F IND.on 04-23-2022 Bilirubin Ql (U) Negative Normal NEGATIVE [facility] Comment on above: Performed By: #### U ACSLUIS ICRO ####[facility] Qlingomvpv[address] [place], [place] [address]Dr. Soniya Chi Clarity (U) CLEAR Normal CLEAR [facility] Comment on above: Performed By: #### U ACSLUIS, UMICRO ####[facility] Mwzfdbhoom6886 [place] [address]Dr. Soniya Chi Color (U) LT. YELLOW Normal YELLOW [facility] Comment on above: Performed By: #### U ACSIND, UMICRO ####[facility] Zhhfznwnwa0009 [place] [address]Dr. Soniya Chi Glucose Ql (U) Negative Normal NEGATIVE The [facility] Comment on above: Performed By: #### U ACSLUIS, UMICRO ####[facility] Snxjwlvpke9704 [place] [address]Dr. Soniya Chi Hemoglobin Ql (U) Negative Normal NEGATIVE The [facility] Comment on above: Performed By: #### U ACSLUIS UMICRO ####[facility] Tlhdcsnqrl0150 [place] [address]Dr. Soniya Chi Ketones Ql (U) Negative Normal NEGATIVE The [facility] Comment on above: Performed By: #### U ACSLUIS UMICRO ####[facility] Dpeavurukx0691 [place] [address]Dr. Soniya Chi LEUKOCYTES TRACE Abnormal NEGATIVE [facility] Comment on above: Performed By: #### U ACSLUIS ICRO ####[facility] Eqpjnsqsie0772 [place] [address]Dr. Soniya Chi Nitrite Ql (U) Negative Normal NEGATIVE The [facility] Comment on above: Performed By: #### U ACSLUIS ICRO ####[facility] Cabzhadair4822 [place] [address]Dr. Soniya Chi pH (U) 5.5 [pH] Normal 5-9 [facility] Comment on above: Performed By: #### U PRASHANTH ICRO ####[facility] [address]wjrtbvra[address] [place], [place] [address]Dr. Soniya Chi SPEC GRAVITY 1.020 Normal 1.005-<=1.025 [facility] Comment on above: Performed By: #### U ACSLUIS ICRO ####[facility] Quilxgbgha0618 [place] [address]Dr. Soniya Chi UA PROTEIN Negative Normal NEGATIVE/ TRACE The [facility] Comment on above: Performed By: #### U ACSLUIS UMICRO ####[facility] Hktjcdkirr[address] [place], [place] [address]Dr. Soniya Chi UR MICRO IND INDICATED Normal [facility] Comment on above: Performed By: #### U ACSLUIS UMICRO ####[facility] Lxzmndlrib5787 [place] [address]Dr. Soniya Chi Urobilinogen Qn (U) 0.2 {Casimiro'U}/dL Normal 0.2 - 1. 0 [facility] Comment on above: Performed By: #### U ACSLUIS UMICRO ####[facility] Ycqdazfvmc2727 [place] [address]Dr. Soniya Chi URINE MICROSCOPIC ONLYon BACTERIA NONE SEEN Normal NONE SEEN The [facility] Comment on above: Performed By: #### U ACSLUIS UMICRO ####[facility] Kzygddmpzp7358 [place] [address]Dr. Soniya Chi Bacteria identified Cx Nom (U) NOT INDICATED Normal [facility] Comment on above: Performed By: #### U ACSLUIS UMICRO ####[facility] [address]vvxblhyu[address] [place], [place] [address]Dr. Soniya Chi CAST NONE SEEN Normal NONE SEEN [facility] Comment on above: Performed By: #### U ACSLUIS UMICRO ####[facility] Ovcqqqcehl[address] [place], [place] [address]Dr. Soniya Chi Crystals LM Nom (Urine sed) NONE SEEN Normal NONE SEEN [facility] Comment on above: Performed By: #### U ACSLUIS ICRO ####[facility] Mduuemudhp[address] [place], [place] [address]Dr. Soniya Chi Epithelial cells LM Ql (Urine sed) FEW Abnormal NONE SEEN /RARE The [facility] Comment on above: Performed By: #### U ACSLUIS UMICRO ####[facility] Vgyueojifq[address] [place], [place] [address]Dr. Soniya Chi MUCOUS TRACE Abnormal NONE SEEN [facility] Comment on above: Performed By: #### U ACSLUIS UMICRO ####[facility] Expftioysg7155 [place] [address]Dr. Soniya Chi RBC NONE SEEN Abnormal 0-2 [facility] Comment on above: Performed By: #### U ACSLUIS UMICRO ####[facility] Ohbvnywtxe5391 [place] [address]Dr. Soniya Chi WBC 0-2 Abnormal NONE SEEN [facility] Comment on above: Performed By: #### U ACSIND, UMICRO ####[facility] Pjbrypujtv9157 [place] [address]Dr. Soniya Chi MG MAMM SCREEN 3D PANCHITO CADon 04-17-2022 MG MAMM SCREEN 3D PANCHITO CAD Normal [facility] CULTURE URINEon 04-06-2022 CULTURE URINE Normal The [facility] Comment on above: Performed By: #### U RCX ####[facility] Adymhlqenf8408 [place] [address]Dr. Soniya Chi ER URINE PROFILEon 2 Bilirubin Ql (U) Negative Normal NEGATIVE The [facility] Comment on above: Performed By: #### U MICRO, ERUR ####[facility] Dbyajtfooh[address] [place], [place] [address]Dr. Soniya Chi Clarity (U) SL CLOUDY Abnormal CLEAR [facility] Comment on above: Performed By: #### U MICRO, ERUR ####[facility] Imjqftdbww[address] [place], [place] [address]Dr. Soniya Chi Color (U) YELLOW Normal YELLOW [facility] Comment on above: Performed By: #### U MICRO, ERUR ####[facility] Cyowtossgs[address] [place], [place] [address]Dr. Soniya CASTELLANOAHD A micrscopic examination will be performed if indicated. Normal [facility] Comment on above: Performed By: #### U MICRO, ERUR ####[facility] Ibtdhpvuvb[address] [place], [place] [address]Dr. Soniya Chi Glucose Ql (U) Negative Normal NEGATIVE The [facility] Comment on above: Performed By: #### U MICRO, ERUR ####[facility] Mzhoxhdhlr[address] [place], [place] [address]Dr. Soniya Chi Hemoglobin Ql (U) LARGE Abnormal NEGATIVE The [facility] Comment on above: Performed By: #### U MICRO, ERUR ####[facility] [address]medphlovq[address] [place], [place] [address]Dr. Soniya Chi Ketones Ql (U) Negative Normal NEGATIVE The [facility] Comment on above: Performed By: #### U MICRO, ERUR ####[facility] Ppfnejqdof5893 [place] [address]Dr. Soniya Chi LEUKOCYTES LARGE Abnormal NEGATIVE The [facility] Comment on above: Performed By: #### U MICRO, ERUR ####[facility] Jxbtfwesuw2358 [place] [address]Dr. Soniya Chi Nitrite Ql (U) Negative Normal NEGATIVE The [facility] Comment on above: Performed By: #### U MICRO, ERUR ####[facility] Ukarfgedbx9271 [place] [address]Dr. Soniya Chi pH (U) 6.5 [pH] Normal 5-9 [facility] Comment on above: Performed By: #### U MICRO, ERUR ####[facility] Waimxdynif[address] [place], [place] [address]Dr. Soniya Chi Protein (U) [Mass/Vol] 100 mg/dL Abnormal NEGATIVE/ TRACE The [facility] Comment on above: Performed By: #### U MICRO, ERUR ####[facility] Jkyeicdesm[address] [place], [place] [address]Dr. Soniya Chi SPEC GRAVITY <=1.005 Abnormal 1.005-<=1.025 The [facility] Comment on above: Performed By: #### U MICRO, ERUR ####[facility] Hkvelcwgre[address] [place], [place] [address]Dr. Soniya Chi UR MICRO IND INDICATED Normal The [facility] Comment on above: Performed By: #### U MICRO, ERUR ####[facility] Opndwkqjvs[address] [place], [place] [address]Dr. Soniya Chi Urobilinogen Qn (U) 0.2 {Casimiro'U}/dL Normal 0.2 - 1. 0 The [facility] Comment on above: Performed By: #### U MICRO, ERUR ####[facility] Mgbwbcvynj[address] [place], [place] [address]Dr. Soniya Chi URINE MICROSCOPIC ONLYon BACTERIA MODERATE Abnormal NONE SEEN The [facility] Comment on above: Performed By: #### U MICRO, ERUR ####[facility] Edgbrjnuar[address] [place], [place] [address]Dr. Soniya Chi Bacteria identified Cx Nom (U) INDICATED Normal The [facility] Comment on above: Performed By: #### U MICRO, ERUR ####[facility] Eilsiizhbd2714 [place] [address]Dr. Soniya Chi CAST NONE SEEN Normal NONE SEEN The [facility] Comment on above: Performed By: #### U MICRO, ERUR ####[facility] Tzkkmyrqyb0410 [place] [address]Dr. Soniya Chi Crystals LM Nom (Urine sed) NONE SEEN Normal NONE SEEN The [facility] Comment on above: Performed By: #### U MICRO, ERUR ####[facility] Pezopqtwgl7744 [place] [address]Dr. Soniya Chi Epithelial cells LM Ql (Urine sed) FEW Abnormal NONE SEEN /RARE [facility] Comment on above: Performed By: #### U MICRO, ERUR ####[facility] Uryvzxfqvq3904 [place] [address]Dr. Soniya Chi MUCOUS NONE SEEN Normal NONE SEEN The [facility] Comment on above: Performed By: #### U MICRO, ERUR ####[facility] Phnkdbszrz1085 [place] [address]Dr. Soniya Chi RBC 20-50 Abnormal 0-2 [facility] Comment on above: Performed By: #### U MICRO, ERUR ####[facility] Jxxwnlfgxm1657 [place] [address]Dr. Soniya Chi WBC (U) [#/Vol] /uL Abnormal NONE SEEN The [facility] Comment on above: Performed By: #### U MICRO, ERUR ####[facility] Dyvelanmow0608 [place] [address]Dr. Soniya Chi Covid-19 PCR (CVDTB)on SARS-CoV-2 (COVID-19) RNA DORIAN+probe Ql (Unsp spec) Not detected Normal NOT DETECTED The [facility] Comment on above: Result Comment: This test is not yet approved or cleared by the [place] FDA. When there are no FDA-approved or cleared tests available, and other criteria are met, FDA can make tests available under an emergency access mechanism called an Emergency Use Authorization (EUA). The EUA for this test is supported by the [employer] Fixer of Health and Human Service's (HHS's) declaration [...] with SARS-CoV-2. Performed By: #### C VDTB ####[facility] Otjpkkfgfc3624 [place], [place] [address]Qv. Soniya Chi Covid-19 PCR ([facility])on 11-30 SARS-CoV-2 (COVID-19) RNA DORIAN+probe Ql (Unsp spec) Detected Critically abnormal NOT DETECTED The [facility] Comment on above: Result Comment: This test is not yet approved or cleared by the [place] FDA. When there are no FDA-approved or cleared tests available, and other criteria are met, FDA can make tests available under an emergency access mechanism called an Emergency Use Authorization (EUA). The EUA for this test is supported by the [employer] Fixer of Health and Human Service's declaration that [...] be used). Performed By: #### C VDTB ####[facility] Talrupoasn0153 [place], [place] [address]Wa. Gypsyju[address] Alon CT HEAD WO CONon 12-15-2021 CT HEAD WO CON Normal The [facility] CBC AUTO DIFFon 12-12-2021 BASO # 0.0 103/ul Normal 0.0-0.1 The [facility] Comment on above: Performed By: #### C BC ####[facility] Guiwwqpbfy1168 [place] [address]Dr. Soniya Chi Basophils/100 WBC (Bld) 0.5 % Normal 0.2-2.0 The [facility] Comment on above: Performed By: #### C BC ####[facility] Vcixvtxuph[address] [place], [place] [address]Dr. Soniya Chi EO # 0.1 103/ul Normal 0.0-0.7 The [facility] Comment on above: Performed By: #### C BC ####[facility] Niyuhpguqj4421 [place] [address]Dr. Soniya Chi Eosinophils/100 WBC (Bld) 1.6 % Normal 0.9-7.0 The [facility] Comment on above: Performed By: #### C BC ####[facility] Qrtblbeqyn06[address] [place], [place] [address]Dr. Soniya Chi Erythrocyte distribution width (RBC) [Ratio] 12.2 % Normal 11.0-15.0 [facility] Comment on above: Performed By: #### C BC ####[facility] Wyvfbrinzz[address] [place], [place] [address]Dr. Soniya Chi Hematocrit (Bld) [Volume fraction] 38.7 % Normal 36.0-48.0 The [facility] Comment on above: Performed By: #### C BC ####[facility] Ccczoewmzo[address] [place], [place] [address]Dr. Soniya Chi Hemoglobin (Bld) [Mass/Vol] 12.4 g/dL Normal 12.0-16.0 The [facility] Comment on above: Performed By: #### C BC ####[facility] Nnyxpeqshh[address] [place], [place] [address]Dr. Soniya Chi IG # 0.02 10e3/ul Normal 0.00-0.03 The [facility] Comment on above: Performed By: #### C BC ####[facility] Kpogwrwrno[address] [place], [place] [address]Dr. Soniya Chi IG % 0.3 % Normal 0.0-0.5 [facility] Comment on above: Performed By: #### C BC ####[facility] Evipehoxqn9537 [place] [address]Dr. Soniya Alon LYMPH # 1.5 103/ul Normal 1.2-3.8 [facility] Comment on above: Performed By: #### C BC ####[facility] Fpkqkqdesb4377 [place] [address]Dr. Soniya Chi Lymphocytes/100 WBC (Bld) 20.6 % Normal 20.5-60.0 [facility] Comment on above: Performed By: #### C BC ####[facility] Pddbmmnnxc1053 [place] [address]Dr. Soniya Chi MANUAL DIFF REQ NO Normal [facility] Comment on above: Performed By: #### C BC ####[facility] Hpcsgqxeif0904 [place] [address]Dr. Soniya Chi MCH (RBC) [Entitic mass] 29.5 pg Normal 26.7-34.0 [facility] Comment on above: Performed By: #### C BC ####[facility] Mllrzwkzbz8381 [place] [address]Dr. Gypsyjuan Chi MCHC (RBC) [Mass/Vol] 32.0 g/dL Normal 29.9-35.2 [facility] Comment on above: Performed By: #### C BC ####[facility] Yqyhorigwu5388 [place] [address]Dr. Soniya Chi MCV (RBC) [Entitic vol] 91.9 fL Normal 81.0-99.0 [facility] Comment on above: Performed By: #### C BC ####[facility] Fhxmhpvcdx1781 [place] [address]Dr. Sonyia Chi MONO # 0.5 103/ul Normal 0.3-0.8 The [facility] Comment on above: Performed By: #### C BC ####[facility] Juckdtsrfj2080 [place] [address]Dr. Soniya Chi Monocytes/100 WBC (Bld) 7.4 % Normal 1.7-12.0 The [facility] Comment on above: Performed By: #### C BC ####[facility] Yezklynxsk8690 [place] [address]Dr. Soniya Chi NEUT # 5.1 103/ul Normal 1.4-6.5 The [facility] Comment on above: Performed By: #### C BC ####[facility] Ocqiuosyqz2985 [place] [address]Dr. Soniya Chi Neutrophils/100 WBC (Bld) 69.6 % Normal 43.0-75.0 [facility] Comment on above: Performed By: #### C BC ####[facility] Vanamugdgs8647 [place] [address]Dr. Soniya Chi Platelet mean volume (Bld) [Entitic vol] 9.7 fL Normal 9.5-13.5 [facility] Comment on above: Performed By: #### C BC ####[facility] Mivpxsaxyk7232 [place] [address]Dr. Soniya Chi PLT 248 103/ul Normal 150-450 [facility] Comment on above: Performed By: #### C BC ####[facility] Wypmmczntm3268 [place] [phone]. Soniya Chi RBC 4.21 106/ul Normal 4.20-5.40 [facility] Comment on above: Performed By: #### C BC ####[facility] Urxoucctzi5743 [place] [address]Dr. Soniya Chi WBC 7.3 103/ul Normal 4.0-11.0 [facility] Comment on above: Performed By: #### C BC ####[facility] Tzenzkamjo0097 [place] [address]DrKarolina Chi PROF 14(COMP METB)on 022 Albumin [Mass/Vol] 3.8 g/dL Normal 3.4-5.0 [facility] Comment on above: Performed By: #### C MP ####[facility] Rcchbtaoyp9851 [place] [address]DrKarolina Chi Albumin/Globulin [Mass ratio] 1.0 {ratio} Normal The [facility] Comment on above: Performed By: #### C MP ####[facility] Hhthiowxtv2981 [place] [address]Dr. Soniya Chi ALP [Catalytic activity/Vol] 71 U/L Normal 46-116 [facility] Comment on above: Performed By: #### C MP ####[facility] Pwkynyxrfw5272 [place] [address]Dr. Soniya Chi ALT [Catalytic activity/Vol] 21 U/L Normal 14-59 [facility] Comment on above: Performed By: #### C MP ####[facility] Cwuuqecukx4688 [place] [address]Dr. Soniya Chi Anion gap [Moles/Vol] 12.4 mmol/L Normal Th e [facility] Comment on above: Performed By: #### C MP ####[facility] Ydbwxvaixh[address] [place], [place] [address]Dr. Soniya Chi AST [Catalytic activity/Vol] 12 U/L Critically low 15-37 [facility] Comment on above: Performed By: #### C MP ####[facility] Hjdtdihtix9[address] [place], [place] [address]Dr. Soniya Chi Bilirubin [Mass/Vol] 0.9 mg/dL Normal 0.2-1.0 [facility] Comment on above: Performed By: #### C MP ####[facility] Pebssoctmc2317 [place] [address]Dr. Soniya Chi Calcium [Mass/Vol] 9.6 mg/dL Normal 8.5-10.1 [facility] Comment on above: Performed By: #### C MP ####[facility] Ulvbiqinku1484 [place] [address]Dr. Soniya Chi Chloride [Moles/Vol] 103 mmol/L Normal 98-107 [facility] Comment on above: Performed By: #### C MP ####[facility] Xvbqaslvyq6840 [place] [address]Dr. Soniya Alon CO2 [Moles/Vol] 26.7 mmol/L Normal 21.0-32.[address] [facility] Comment on above: Performed By: #### C MP ####[facility] Gofimtuztt2945 [place] [address]Dr. Soniya Chi Creatinine [Mass/Vol] 1.30 mg/dL Critically high 0.55-1.02 [facility] Comment on above: Performed By: #### C MP ####[facility] Rnvxzippzl4951 [place] [address]Dr. Soniya Chi EGFR-AF IRISH 50 mL/min/1.73m2 Critically low >=60 [facility] Comment on above: Performed By: #### C MP ####[facility] Llnhohheqy3258 [place] [address]Dr. Soniya Chi EGFR-NON AF IRISH 41 mL/min/1.73m2 Critically low >=60 [facility] Comment on above: Performed By: #### C MP ####[facility] Relodibjcd[address] [place], [place] [address]Dr. Soniya Chi Globulin (S) [Mass/Vol] 3.7 g/dL Normal [facility] Comment on above: Performed By: #### C MP ####[facility] Twajridrta7575 [place] [address]Dr. Soniya Chi Glucose [Mass/Vol] 104 mg/dL Normal 74-106 [facility] Comment on above: Performed By: #### C MP ####[facility] Jviocluumc4710 [place] [address]Dr. Soniya Chi Potassium [Moles/Vol] 4.1 mmol/L Normal 3.5-5.1 The [facility] Comment on above: Performed By: #### C MP ####[facility] Yeyzprdnkg6460 [place] [address]Dr. Soniya Chi Protein [Mass/Vol] 7.5 g/dL Normal 6.4-8.2 The [facility] Comment on above: Performed By: #### C MP ####[facility] Zugaatssom0524 [place] [address]Dr. Soniya Chi Sodium [Moles/Vol] 138 mmol/L Normal 136-145 The [facility] Comment on above: Performed By: #### C MP ####[facility] Nkcqgduxem9398 [place] [phone]. Soniya Chi Urea nitrogen [Mass/Vol] 19.0 mg/dL Critically high 7.0-18.0 [facility] Comment on above: Performed By: #### C MP ####[facility] Dnyedhnobx0017 [place] [phone]. Soniya Chi Urea nitrogen/Creatinine [Mass ratio] 14.6 mg/mg Normal [facility] Comment on above: Performed By: #### C MP ####[facility] Sfwfrjnmgd9926 [place] [address]Dr. Soniya Chi GLUCOSE BLOODon 11-29-2021 Glucose [Mass/Vol] 106 mg/dL Normal 74-106 [facility] Comment on above: Performed By: #### G COLLEEN, LIPID ####[facility] Cpgnjnuiet[address] [place], [place] [address]Dr. Soniya Chi LIPID PROFILEon 11-29-2021 CHOL-HDL RATIO NORM SEE BELOW Normal [facility] Comment on above: Result Comment: 3.3 - 4.4 LOW RISK 4.4 - 7.1 AVERAGE RISK 7.1 - 11.0 MODERATE RISK >11.0 HIGH RISK Performed By: #### G COLLEEN, LIPID ####[facility] Jajlnfdtce[address] [place], [place] [address]Dr. Soniya Chi Cholesterol [Mass/Vol] 230 mg/dL Critically high <=200 [facility] Comment on above: Performed By: #### G COLLEEN, LIPID ####[facility] Dzycpsnczi8504 [place] [address]Dr. Soniya Chi Cholesterol in HDL [Mass/Vol] 66 mg/dL Critically high 40-60 [facility] Comment on above: Performed By: #### G COLLEEN, LIPID ####[facility] Qvpkjlfldc5046 [place] [address]Dr. Soniya Chi Cholesterol in LDL [Mass/Vol] 113.2 mg/dL Normal [facility] Comment on above: Performed By: #### G COLLEEN, LIPID ####[facility] Mguyhqwhmg7356 [place] [address]Dr. Soniya Chi Cholesterol.total/Cho lesterol in HDL [Mass ratio] 3.5 {ratio} Normal The [facility] Comment on above: Performed By: #### G COLLEEN, LIPID ####[facility] Ekwucgtuuv4590 [place], [place] [address]Rc. Soniya Chi HDL NORMAL > or = 60 mg/dl - LOW CARDIOVASCULAR RISK <40 mg/dl - HIGH CARDIOVASCULAR RISK Normal The [facility] Comment on above: Performed By: #### G COLLEEN, LIPID ####[facility] Eajrympetg0845 [place], [place] [address]Zr. Soniya Chi LDL CALC NORMAL SEE BELOW Normal [facility] Comment on above: Result Comment: <100 mg/dl OPTIMAL 100 - 129 mg/dl NEAR OR ABOVE OPTIMAL 130 - 159 mg/dl BORDERLINE HIGH 160 - 189 mg/dl HIGH >190 mg/dl VERY HIGH Performed By: #### G COLLEEN, LIPID ####[facility] Ogectyveom7997 [place] [id number]. Soniya Chi Triglyceride [Mass/Vol] 254 mg/dL Critically high <=150 The [facility] Comment on above: Performed By: #### G COLLEEN, LIPID ####[facility] Hhvplpvivt5092 [place] [address]Dr. Soniya Chi VLDL CALC 50.8 mg/dL Normal [facility] Comment on above: Performed By: #### G COLLEEN, LIPID ####[facility] Jmddymitsc3436 [place] [address]Dr. Soniya Chi Vital Signs Date Time Vital Sign Value Performing Clinician Facility 10-09-2022 07:06-0400 Diastolic blood pressure 89 mm[Hg] Zaira Saravia DO Work Phone: [facility] 10-09-2022 07:06-0400 Heart rate 46 /min Zaira Saravia DO Work Phone: [facility] 10-09-2022 07:06-0400 Respiratory rate 29 /min Zaira Saravia DO Work Phone: [facility] 10-09-2022 07:06-0400 SaO2% (BldA) [Mass fraction] 99 % Zaira Saravia DO Work Phone: [facility] [employer] 10-09-2022 07:06-0400 Systolic blood pressure 112 mm[Hg] Zaira Saravia DO Work Phone: [facility] [employer] 10-08-2022 13:25-0400 Body temperature 97.11 [degF] Zaira Saravia DO Work Phone: [facility] [employer] 10-08-2022 13:21-0400 Body height 165.1 cm Zaira Saravia DO Work Phone: [facility] [employer] 10-08-2022 13:21-0400 Body mass index (BMI) [Ratio] 29.95 kg/m2 Zaira Saravia DO Work Phone: [facility] [employer] 10-08-2022 13:21-0400 Body weight 81.65 kg Z[facility]a [facility]avia DO [facility] 06-18-2022 14:39-0500 Body temperature 97.3 [degF] MD Melva Escobedo Work Phone: [facility] 06-18-2022 14:39-0500 Diastolic blood pressure 71 mm[Hg] MD Melva Escobedo Work Phone: [facility] 06-18-2022 14:39-0500 Heart rate 63 /min MD Melva Escobedo Work Phone: [facility] 06-18-2022 14:39-0500 Respiratory rate 16 /min MD Melva Escobedo Work Phone: [facility] 06-18-2022 14:39-0500 SaO2% (BldA) [Mass fraction] 95 % MD Melva Escobedo Work Phone: [facility] 06-18-2022 14:39-0500 Systolic blood pressure 109 mm[Hg] MD Melva Escobedo Work Phone: [facility] 06-17-2022 09:00-0500 Body weight 70.76 kg MD Melva Escobedo Work Phone: [facility] 06-12-2022 10:32-0500 Body height 154.94 cm MD Melva Escobedo Work Phone: [facility] Encounters Encounter Date Encounter Type Care Provider Facility Start: 02-24-2024 ambulatory JOINT FINISHER Keya L Ezequiel Facil [facility]y: [facility] Start: 12-16-2023 ambulatory JOINT FINISHER Keya L Ezequiel Facil ity: [facility] Start: 06-24-2023 End: 06-25-2023 ambulatory JOINT FINISHER Keya L Ezequiel Facility:[facility] Start: 06-11-2023 End: 06-12-2023 ambulatory JOINT FINISHER Keya L Ezequiel Facility:[facility] Start: 06-11-2023 End: 06-11-2023 Lab Drop off Keya L Ezequiel [facility] Start: 04-29-2023 End: 04-29-2023 ambulatory JOSEPH DOMINGUEZ Not Available Start: 02-21-2023 End: 02-22-2023 ambulatory JOINT FINISHER Keya L Ezequiel Facility: [facility] Start: 02-04-2023 End: 02-05-2023 ambulatory JOINT FINISHER Keya L Ezequiel Facility: [facility] Start: 11-28-2022 ambulatory Marty Brewer acility:[facility] Start: 10-23-2022 ambulatory MELVA ESCOBEDO Facility:[facility] Start: 10-09-2022 End: 10-13-2022 [facility] Start: 10-08-2022 End: 10-09-2022 Emergency department patient visit IRFCARLO LUNDBERG [facility] Start: 10-08-2022 End: 10-09-2022 Emergency department patient visit Zaira Saravia DO Work Phone: [facility] ED Comment on above: Altered mental statu s, unspecified altered mental status type (Primary Dx); Hypernatremia; Urinary tract infection without hematuria, site unspecified Start: 10-08-2022 End: 10-08-2022 [facility]ulatory [facility] Start: 10-08-2022 End: 10-08-2022 Subsequent hospital visit by physician Jamil Lundberg MD Work Phone: [facility] Start: 10-05-2022 End: 10-06-2022 [facility]ulatory [facility] Start: 10-04-2022 End: 10-05-2022 ambulatory [facility] Start: 10-04-2022 End: 10-04-2022 Subsequent hospital visit by physician Jamil Lundberg MD Work Phone: [facility] Start: 10-03-2022 End: 10-03-2022 ambulatory [facility] Start: 10-02-2022 End: 10-02-2022 Subsequent hospital visit by physician Jamil Lundberg MD Work Phone: [facility] Start: 09-28-2022 End: 09-29-[address] MELVA ESCOBEDO . Facility:[facility] Start: 09-16-2022 End: 09-17-[address] MELVA ESCOBEDO . Facility: Start: 09-16-2022 End: 09-16-2022 ambulatory [facility] Start: 09-10-2022 End: 09-11-2022 ambulatory MELVA ESCOBEDO [facility] Start: 08-27-2022 End: 08-28-2022 ambulatory [facility] Start: 08-27-2022 End: 08-27-2022 Subsequent hospital visit by physician Jamil Lundberg MD Work Phone: [facility] Start: 08-25-2022 End: 08-26-2022 ambulatory [facility] Start: 08-25-2022 End: 08-25-2022 Subsequent hospital visit by physician Jamil Lundberg MD Work Phone: [facility] Start: 08-16-2022 End: 08-22-2022 Evaluation and management of inpatient DR MELVA ESCOBEDO . Facility:[facility] Start: 08-15-2022 End: 08-15-[address] MELVA ESCOBEDO . Facility:[facility] Start: 08-13-2022 End: 08-14-[address] MELVA ESCOBEDO . Facility:[facility] Start: 08-13-2022 End: 08-14-2022 ambulatory MELVA ESCOBEDO Facility:[facility] Start: 08-01-2022 ambulatory JOINT FINISHER Keya Vogel ity:[facility] Start: 05-30-2022 End: 06-18-2022 Evaluation and management of inpatient Judith Cordoba Facility:[facility] Start: 05-30-2022 End: 06-18-2022 Evaluation and management of inpatient MD Melva Escobedo Work Phone: [address] Work Phone: Start: 05-28-2022 End: 05-30-2022 Evaluation [...] metabolic pane l calcium total Zaira R Manjit DO Work Phone: Start: 10-09-2022 Basic metabolic [...] R Saravia DO Work Phone: Start: 10-08-2022 Urinalysis microscopic only Zaira Fineis DO Work Phone: Start: 10-08-2022 Urnls dip stick/tabl et rgnt auto w/o microscopy Zaira R Saravia DO Work Phone: Start: 10-08-2022 Ct head/brain w/o co ntrast material Zaira R Saravia DO Work Phone: Start: 10-08-2022 GLUCOSE, WHOLE BLOOD Ch erick R Saravia DO Work Phone: Start: 10-08-2022 Comprehensive metabo lic panel Zaira R Saravia DO Work Phone: Start: 10-08-2022 Ecg routine ecg w/le ast 12 lds i&r only Zaira R Saravia DO Work Phone: Start: 10-08-2022 Basic metabolic pane l calcium total Melva Morales [employer] Work Phone: Start: 10-04-2022 Comprehensive metabo lic panel Jamil Lundberg MD Work Phone: Start: 10-04-2022 Lipid panel Jamil pierce MD Work Phone: Start: 10-02-2022 Assay of thyroid stimulating hormone tsh Jamil Lundberg MD Work Phone: Start: 08-27-2022 Basic metabolic pane l calcium total Mee Chelan [employer] Work Phone: Start: 08-25-2022 Urnls dip stick/tabl [...] Escobedo Work Phone: Start: 01-31-2019 Colonoscopy Keya Shavon montemayor Start: 04-28-2017 Cataract extraction and insertion of intraocular lens Keya Nieves Comment on above: CATARACT EXTRACTION WITH INTRAOCULAR LENS IMPLANTATION RIGHT EYE Tonsillectomy and adenoidectomy Keyakrystian Ballab Plan of Treatment Date Care Activity Detail Author Start: 12-16-2031 DTaP/Tdap/Td vaccine (2 - Tdap) DTaP/Tdap/Td vaccine (2 - Tdap) [facility] Start: 10-05-2027 Lipid panel Lipids [facility] [employer] Start: 12-31-2022 Influenza vaccination Flu vacc ine (Season Ended) [facility] [employer] Start: 08-25-2022 Annual Wellness Visi t (AWV) Annual Wellness Visit (AWV) [facility] Start: 06-18-2022 [facility] Start: 06-15-2022 [facility] Start: 06-15-2022 Referral to survey research manager [facility] Start: 05-30-2022 Hospital admission [facility] Start: 12-31-2021 Influenza vaccination Flu vaccine (# 1) [facility] Start: 02-16-2021 Pneumococcal 65+ yea rs Vaccine (2 - PPSV23 if available, else PCV20) Pneumococcal 65+ years Vaccine (2 - PPSV23 if available, else PCV20) [email or web address] Start: 2009 Screening for osteoporosis DEX A (modify frequency per FRAX score) [email or web address] Start: 2004 Screening for malign ant neoplasm of breast Breast cancer screen [email or web address] Start: 2004 Shingles vaccine (1 of 2) Stauffer gles vaccine (1 of 2) [facility] Start: 11-28-1999 Screening for malign ant neoplasm of colon [email or web address] Start: 1989 Diabetes screen Diabetes screen [facility] Start: 1973 DTaP/Tdap/Td vaccine (1 - Tdap) DTaP/Tdap/Td vaccine (1 - Tdap) [facility] Start: 1972 Hepatitis C screening Hepatitis C sc reen [facility] [employer] Start: 1966 Depression Screen Depression Screen [facility] Start: 05-29-1955 COVID-19 Vaccine (#1) COVID-19 Vacci ne (#1) [facility] End: 10-11-2022 Basic metabolic 2000 panel - Serum or Plasma Basic Metabolic Panel Lab STAT Every 2 Hours (Lab) for 35 Occurrences starting 10/08/2022 until 10/11/2022, 5 completed [facility] Work Phone: Comment on above: Every 2 Hours (Lab) for 35 Occurrences starting 10/08/2022 until 10/11/2022, 5 completed End: 08-25-2022 Culture, Urine [facility] Work Phone: Comment on above: Once for 1 Occurrenc es starting 08/25/2022 until 08/25/2022 End: 10-08-2022 Culture, Urine [facility] Work Phone: Comment on above: Once for 1 Occurrenc es starting 10/08/2022 until 10/08/2022 Patient Education Schizophrenia (DC) [facility] [place] Instructions [facility] Work Phone: Patient referral [facility] Work Phone: End: 10-02-2022 [employer] Work Phone: Comment on above: Once for 1 Occurrenc es starting 10/02/2022 until 10/02/2022 End: 10-02-2022 [employer] Phone: Comment on above: Once for 1 Occurrenc es starting 10/02/2022 until 10/02/2022 End: 10-02-2022 Thyroxine (T4) free [Mass/volume] in Serum or Plasma [employer] Work Phone: Comment on above: Once for 1 Occurrenc es starting 10/02/2022 until 10/02/2022 End: 10-02-2022 Triiodothyronine (T3) Free [Mass/volume] in Serum or Plasma [employer] Phone: Comment on above: Once for 1 Occurrenc es starting 10/02/2022 until 10/02/2022 [facility] Immunizations Immunization Date Immunization Notes Care Provider Fa cili 03-09-2022 SARS-CoV-2 (COVID-19 ) [id number] [facility] Ezequ[facility] Comment on above: Result Comment: 2022: [id number] 02-14-2022 influenza virus vaccine, unspecified formulation Key[facility] Ezequiel [facility] 03-29-2021 SARS-CoV-2 (COVID-19 ) mRNA-1273 vaccine [facility] Ezequiel [facility] Comment on above: Result Comment: 2022: [id number] 01-27-2021 influenza virus vaccine, unspecified formulation [facility] Ezequiel [facility] 08-23-2020 SARS-CoV-2 (COVID-19 ) mRNA-1273 vaccine Keya Ezequiel [facility] 07-27-2020 SARS-CoV-2 (COVID-19 ) mRNA-4578 vaccine [facility]a Ezequiel [facility] 02-17-2020 pneumococcal conjuga te vaccine, 13 valent Keya Ezequiel [facility] 02-20-2019 influenza virus vaccine, unspecified formulation [facility] Zeequ[facility] 03-31-2018 influenza virus vaccine, unspecified formulation [facility] Ezequiel [facility] Payers Date Payer Category Payer Private Health Insurance 2022 Medicare [id number] 2022 Self-pay 1959 Private Health Insurance [id number] 1955 Unknown [id number] 2.16.840.1.561083.3.579.2.593 1954 Unknown [id number] 2.16.840.1.807274.3.579.2.59 1954 Unknown [id number] 2.16.840.1.267089.3.579.2.593 1954 Unknown [id number] 2.16.840.1.706017.3.579.2.59 1954 Unknown [id number] 2.16.840.1.173942.3.579.2.593 1954 Unknown [id number] 2.16.840.1.829999.3.579.2.59 1954 Unknown [id number] 2.16.840.1.628227.3.579.2.593 1954 Unknown [id number] 2.16.840.1.852520.3.579.2.593 1954 Unknown [id number] 2.16.840.1.131382.3.579.2.593 1954 Unknown [id number] 2.16.840.1.849994.3.579.2.593 1954 Unknown [id number] 2.16.840.1.781536.3.579.2.593 1954 Unknown [id number] 2.16.840.1.616749.3.579.2.593 1954 Unknown [id number] 2.16.840.1.287560.3.579.2.593 1954 Unknown [id number] 2.16.840.1.153035.3.579.2.593 1954 Unknown [id number] 2.16.840.1.088037.3.579.2.593 1954 Unknown [id number] 2.16.840.1.574600.3.579.2.173 1954 Unknown [id number] 2.16.840.1.017999.3.579.2.173 1954 Unknown [id number] 2.16.840.1.199310.3.579.2.173 1954 Unknown [id number] 2.16.840.1.891788.3.579.2.196 1954 Unknown [id number] 2.16.840.1.544990.3.579.2.1259 1954 Unknown [id number] 2.16.840.1.258609.3.579.2.727 1954 Unknown [id number] 2.16.840.1.386019.3.579.2.727 1954 Unknown [id number] 2.16.840.1.843495.3.579.2.727 1954 Unknown [id number] 2.16.840.1.510949.3.579.2.727 1954 Unknown [id number] 2.16.840.1.787698.3.579.2.727 1954 Unknown [id number] 2.16.840.1.845668.3.579.2.727 1954 Unknown [id number] 2.16.840.1.134042.3.579.2.727 1954 Unknown [id number] 2.16.840.1.479086.3.579.2.727 1954 Unknown [id number] 2.16.840.1.156301.3.579.2.727 1954 Unknown [id number] 2.16.840.1.512517.3.579.2.727 1954 Unknown [id number] 2.16.840.1.448658.3.579.2.727 Unknown Jose BC/ [id number] Unknown [employer] [id number] Unknown [id number] 2.16.840.1.122539.3.579.2.531 Unknown [id number] 2.840.1.401700.3.579.2.531 Social History Date Type Detail Facility Start: 06-15-2022 End: 06-11-2023 Tobacco smoking status IDIS Never smoked tobacco (finding) [facility] Comment on above: Never a smoker Start: 1955 Sex Assigned At Female F [facility] Tobacco smoking status IDIS Tobacco smoking consumption unknown [facility] [email or web address] Phone: Start: 1955 Sex Assigned At Not on file [facility] [email or web address] Phone: Tobacco smoking status Never [facility] Comment on above: Never a smoker Sex Assigned At Female [facility] Goals Date Patient Goal Desired Activity /State Functional Status Date Assessment Result Facility 06-18-2022 Functional status Patient is Pro gressing Toward Baseline [facility] Work Phone: 05-30-2022 Functional status Disability Sta tus Patient at Baseline [facility] Work Phone: Mental Status Date Assessment Result Facility 06-18-2022 Cognitive function Cognitive Sta tus Patient is Progressing Toward Baseline [facility] Work Phone: Clinical Notes 05-31-2022 to 10-13-2022 Note Date & Type Note Facility 10-13-2022 Note Admission Informatio n Patient: Marley Osborn : 1955 Date of Admission: 10/09/2022 08:56:04 Date of Discharge: 10/13/2022 16:45:00 Code Status: [place] DNR - CC Comfort Care PCP: Tamika ROPER, Jamil Consult: Frank LOZA-TRUCK DRIVER, Malissa Soto; Luz LOZA-TRUCK DRIVER, Cintia Rincon; Shay LOZA-TRUCK DRIVER, Rachel Delcid; Zeus ROPER, Cody Francis; Augusto [...] the phone. Patient is currently residing at [facility]. Admitted to ICU. Consult to nephrology for hyponatremia management. Patient CODE STATUS changed to DNR CC. Transferred to general medical floor on 10/10. Discussed plan of care moving forward with , and options for discharge, after discussion with palliative care opted for hospice. Patient was accepted by [facility], closer to patient's home. Patient was discharged to their facility in stable condition. Assessment: Catatonic schizophrenia Hypernatremia Hypothermia Metabolic encephalopathy Bradycardia Chronic anticoagulation on Eliquis Discharge Plan: - [facility] Discharge Time Spent with Patient: 25 [...] summary Patient Discharge Condition Stable Discharge Disposition [facility] Objective Vitals & Measurements T: 36.1 ?C [...] (OCTOBER 10) 2 (more content not included)... [facility] 10-10-2022 Note Chief Complaint Unresponsiveness Reason for Consultation Transfer from [facility] History of Present Illness This is a 66-year-old female with a history of longstanding schizophrenia who also has a history of paroxysmal atrial fibrillation and is on Eliquis 5 mg twice daily who has had multiple psychiatric hospitalizations over the last year according to the because of schizophrenia. She has been at [facility] as well as at [facility]. She has apparently been at her current [...] quite lethargic and was transferred to the [facility] she was found to be hypernatremic as well as hypothermic. She had a sodium of 152 and she was transferred over to [facility]. At this time the reports that [...] Dose: 10/10/22 13:26:00 EDT, Dispense From Location: [address], 10/10/22 13:26:00 EDT Creatine Phosphokinase Electroencephalogram [...] PRN Klor-Con M2 (more content not included)... [facility] 10-09-2022 Note Reason for Consultat ion Hypernatremia History of Present Illness This is a 66-year-old female, who was initially at [facility] and then sent to [facility] ER on 10/08/22. She has a past medical history of catatonic schizophrenia, chronic kidney disease stage unknown at this time, anemia, hypothyroid, DVT hypertension, coronary artery disease, A-fib on Eliquis, osteoporosis, with frequent admissions due to worsening confusion and psychosis in a catatonic state. She was transferred from [facility] this morning after presenting to their emergency department with chief complaint of altered mental status and hypernatremia. All medical history obtained from extensive transfer paperwork and staff. Prior to sending her to the ER she was given 2 liters of NS. Review of labs on 10/04/22 with a serum sodium of 150, potassium 3.5, CO2 30, cr 0.99. At [facility] she had an initial blood pressure of [...] bradycardia. According to paperwork and report from [facility], with patient's underlying psychiatric disorders, baseline ranges from appropriate behavior to catatonia. Patient was admitted to [facility] on 09/28 due to worsening confusion and psychosis and in a catatonic state. In assessment dated 09/29, patient is noncommunicative does not cooperate, does not follow commands. Upon arrival to [facility] she was noted to be hypothermic with [...] data available. Assessment/Plan 1. Hypernatremia Transferred to [facility] from [place] for hypernatremia, AMS, hypotension, hypothermia, UTI and multiple electrolyte imbalances. Sodium level on 10/04/22 was elevated at 150. Admission to [place] ER her sodium was 158 at 13:25. [...] Date: 10/09/22 16:28:00 EDT, Dispense From Location: [facility], 10/09/22 16:28:00 EDT Basic Metabolic Profile Communication [...] Normal Saline F (more content not included)... [facility] 10-09-2022 Note History of Present I [...] the phone. Patient is currently residing at [facility]. Patient arrived to [facility] emergency department at 1317 on 10/08 from [facility], with initial blood pressure of 195/91, heart [...] bradycardia. According to paperwork and report from [facility], with patient's underlying psychiatric disorders, baseline ranges from appropriate behavior to catatonia. Patient was admitted to [facility] on 09/28 due to worsening confusion and psychosis and in a catatonic state. In assessment dated 09/29, patient is noncommunicative does not cooperate, does not follow commands. Patient is seen in [facility] ICU and arouses to name but no [...] the phone. Patient is currently residing at [facility]. Admitted to ICU. Assessment: Catatonic schizophrenia Hypernatremia [...] familiar with this patient, recently evaluated at [facility], patient also catatonic during psych eval at [facility], no consult at this time but notifying of patient's admission. - D/w patient's Freddy, . Lives in [place] and will not be able to visit [...] Activity at baseline: Ambulatory, currently resides at [facility] Anticipated Discharge Location: SNF Time spent with [...] Lactated Ringers Inj (more content not included)... [facility] 09-16-2022 Note Review of Systems Constitutional: Negative for malaise/fatigue. Cardiovascular: Positive for irregular heartbeat, leg swelling and palpitations. Negative for chest pain, dyspnea on exertion, near-syncope and syncope. Respiratory: Negative for shortness of breath. Neurological: Negative for dizziness, headaches and light-headedness. Marley is in the clinic today to follow up from her recent hospitalization at [facility]. She states that she feels palpitations and/or irregular heartbeats. Her home nurse that came last week stated that she thought Marley's ankles were a bit swollen. No excessive fatigue, chest pain, ABDALLA, or SOB. [facility] 09-16-2022 Note Cardiovascular Medic ine [facility] SUBJECTIVE Chief Complaint Patient presents with Follow-up Hospitalization - A-fib Edema Palpitations Marley Osborn is a 66 y.o. female here for hospital follow-up. She has known HTN, CKD III. HPI Marley is in the clinic today to follow up from her recent hospitalization at [facility]. She states that she feels palpitations and/or irregular heartbeats. Her home nurse that came last week stated that she thought Marley's ankles were a bit swollen. No excessive fatigue, chest pain, ABDALLA, or SOB. She was recently admitted to [facility] for AMS, hypothermia, hypotension, hypothyroidism, and UTI. [...] , Rfl: ergocalciferol (Vitamin D-2) 1.25 MG (29734 Units) capsule, TAKE 1 CAPSULE BY MOUTH [...] Trivial pericardial effusion (more content not included)... [facility] 09-02-2022 Note [id number] [facility] 06-17-2022 Progress note Note Date/Time June 17, 2022 2:19pm [facility] [address] [place] [address] Psychiatry Progress Note Signed Patient: Marlye Osborn MR#: [id number] : 1955 Acct:[id number] Age/Sex: 66 / F Adm Date: 2 Loc: Room: [address] [place] [address] Type : ADM IN Attending Dr: Reggie [...] treatment explained Documented By: Reggie Quintana MD 06/17/22 141 Signed By: <Electronically signed by Reggie Quintana MD> 06/17/22 1419 [facility] Work Phone: 1(171) 103-866901-15-2023 Consult note Author Nilo Rosales [facility] June 16, 2022 5:18pm Note Date/Time June 14, 2022 6 :43pm [facility] [address] [place] [address] Hospitalist Consult Note Signed Patient: Marley Osborn MR#: [id number] : 1955 Acct:[id number] Age/Sex: 66 / F Adm Date: 2 Loc: Room: [address] [place] [address] Type: ADM IN Attending Dr: Reggie Quintana [...] Flagyl and Terazol treatment for possible vaginitis, 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 ?Continue supportive care Increased creatinine?likely due to poor oral intake ?Creatinine 1.44, encouraged increased oral intake ?Monitor BMP Schizophrenia ?Continue plan of care Psychiatric team (2) Schizophrenia: Documented By: Marlene Guerra APRN 06/14/22 1842 Signed By: <Electronically signed by DENIA Guerra> 06/15/22 1538 <Electronically signed by Nilo Rosales DO> 06/16/22 1718 [facility] Work Phone: 1([phone]) 691-556101-15-2023 Progress note Author Marlene Guerra [facility] June 16, 2022 3:07pm Note Date/Time June 16, 2022 2 :37pm [facility] [address] [place] [address] Hospitalist Progress Note Signed Patient: Marley Osborn MR#: [id number] : 1955 Acct:[id number] Age/Sex: 66 / F Adm Date: 2 Loc: Room: [address] [place] [address] Type: ADM IN Attending Dr: Reggie Quintana [...] Flagyl and Terazol treatment for possible vaginitis, 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 ?Continue 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 care Increased creatinine?likely due to poor oral intake ?Creatinine 1.44, encouraged increased oral intake ?Monitor BMP Schizophrenia ?Continue plan of care Psychiatric team (2) Schizophrenia: Documented By: Marlene Guerra APRN 06/16/22 1435 Signed By: <Electronically signed by DENIA Guerra> 06/16/22 9519 [facility] Work Phone: 1([phone]) 417-733001-15-2023 Progress note Author Marty brewster [facility] June 16, 2022 8:49am Note Date/Time June 16, 2022 8 :48am [facility] [address] [place], [place] [id number] Psychiatry Progress Note Signed Patient: Marley Osborn MR#: [id number] : 1955 Acct:[id number] Age/Sex: 66 / F Adm Date: 2 Loc: Room: [address] [place] [address] Type : ADM IN Attending Dr: Reggie Quintana MD Copies to: ~ Date of Service: 06/16/2022 Subjective Subjective Narrative: Ms. Osborn states she is doing better today. She appears less distracted compared to yesterday. She denied any AVH or feeling paranoid. I believe she had a change in mental status due to an active infection. 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 She denied SI/HI. [...] signed by Marty Mclean MD> 06/16/22 0849 [facility] Work Phone: 1(777) 269-369901-14-2023 Progress note Author Marty brewster [facility] June 15, 2022 8:48am Note Date/Time June 15, 2022 8 :45am [facility] [address] [place] [address] Psychiatry Progress Note Signed Patient: Marley Osborn MR#: [id number] : 1955 Acct:[id number] Age/Sex: 66 / F Adm Date: 2 Loc: 1S Room: [address] [place] [address] Type : ADM IN Attending Dr: Reggie [...] <Electronically signed by Marty Mclean MD> 06/15/22 0897 [facility] Work Phone: 1(617) 863-520301-13-2023 Progress note Author Marty brewster [facility] June 14, 2022 3:56pm Note Date/Time June 14, 2022 3 :56pm [facility] [address] [place] [address] Psychiatry Progress Note Signed Patient: Marley Osborn MR#: [id number] : 1955 Acct:[id number] Age/Sex: 66 / F Adm Date: 2 Loc: Room: [address] [place] [address] Type : ADM IN Attending Dr: Reggie [...] explained Documented By: Marty Mclean MD 3 [id number] Signed By: <Electronically signed by Marty Mclean MD> 06/14/22 1556 [facility] Work Phone: 1(658) 349-500001-12-2023 Progress note Author Marty brewster [facility] June 13, 2022 12:12pm Note Date/Time June 13, 2022 1 2:12pm [facility] [address] [place] [address] Psychiatry Progress Note Signed Patient: Marley Osborn MR#: [id number] : 1955 Acct:[id number] Age/Sex: 66 / F Adm Date: 2 Loc: Room: 7S2821-0 Type : ADM IN Attending Dr: Reggie [...] signed by Marty Mclean MD> 06/13/22 1212 [facility] Work Phone: 1(596) 970-366601-11-2023 Progress note Author Marty brewster [facility] June 12, 2022 9:52am Note Date/Time June 12, 2022 9 :52am [facility] [address] [place] [address] Psychiatry Progress Note Signed Patient: Marley Osborn MR#: [id number] : 1955 Acct:[id number] Age/Sex: 66 / F Adm Date: 2 Loc: 1S Room: [address] [place] [address] Type : ADM IN Attending Dr: Reggie [...] signed by Marty Mclean MD> 06/12/22 0952 [facility] Work Phone: 1(170) 752-379701-10-2023 Progress note Author Marty brewster [facility] June 11, 2022 6:33pm Note Date/Time June 11, 2022 6 :32pm [facility] [address] [place] [address] Psychiatry Progress Note Signed Patient: Marley Osborn MR#: [id number] : 1955 Acct:[id number] Age/Sex: 66 / F Adm Date: 2 Loc: 1S Room: [address] [place] [address] Type : ADM IN Attending Dr: Reggie [...] treatment explained Documented By: Marty Mclean MD 1831 Signed By: <Electronically signed by Marty Mclean MD> 06/11/221832 [facility] Work Phone: 1(947) 125-729201-09-2023 Progress note Author Marty brewster [facility] June 10, 2022 10:44am Note Date/Time June 10, 2022 10 :44am [facility] [address] [place] [address] Psychiatry Progress Note Signed Patient: Marley Osborn MR#: [id number] : 1955 Acct:[id number] Age/Sex: 66 / F Adm Date: 2 Loc: 1S Room: [address] [place] [address] Type : ADM IN Attending Dr: Reggie [...] Pt denies visual hallucinations, SI, or HI. 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 MSE: Appearance: grossly normal.? [...] explained Documented By: Marty Mclean MD 3 [id number] Signed By: <Electronically signed by Marty Mclean MD> 06/10/22 1044 [facility] Work Phone: 1([phone]) 433-196301-08-2023 Progress note Author Reggie Quintana [facility] June 09, 2022 12:26pm Note Date/Time June 09, 2022 12 :26pm [facility] [address] [place] [address] Psychiatry Progress Note Signed Patient: Marley Osborn MR#: [id number] : 1955 Acct:[id number] Age/Sex: 66 / F Adm Date: 2 Loc: Room: [address] [place] [address] Type : ADM IN Attending Dr: Reggie [...] By: <Electronically signed by Reggie Quintana MD> 06/09/22 1226 [facility] Work Phone: 1(145) 837-865301-07-2023 Progress note Author Reggie Quinatna [facility] June 08, 2022 12:13pm Note Date/Time June 08, 2022 12 :13pm [facility] [address] [place] [address] Psychiatry Progress Note Signed Patient: Marley Osborn MR#: [id number] : 1955 Acct:[id number] Age/Sex: 66 / F Adm Date: 2 Loc: Room: [address] [place] [address] Type : ADM IN Attending Dr: Reggie [...] By: <Electronically signed by Reggie Quintana MD> 06/08/22 [facility] Work Phone: 1([phone]) 267-112501-06-2023 Progress note Author Marty brewster [facility] June 07, 2022 9:18am Note Date/Time June 07, 2022 9: 17am [facility] [address] [place] [address] Psychiatry Progress Note Signed Patient: Marley Osborn MR#: [id number] : 1955 Acct:[id number] Age/Sex: 66 / F Adm Date: 2 Loc: Room: [address] [place] [address] Type : ADM IN Attending Dr: Reggie [...] signed by Marty Mclean MD> 06/07/22 0918 [facility] Work Phone: 1(444) 445-727901-05-2023 Progress note Author Marty brewster [facility] June 06, 2022 6:57am Note Date/Time June 06, 2022 6: 57am [facility] [address] [place] [address] Psychiatry Progress Note Signed Patient: Marley Osborn MR#: [id number] : 1955 Acct:[id number] Age/Sex: 66 / F Adm Date: 2 Loc: Room: [address] [place] [address] Type : ADM IN Attending Dr: Reggie [...] signed by Marty Mclean MD> 06/06/22 0657 [facility] Work Phone: 1(956) 945-751401-04-2023 Progress note Author Marty brewster [facility] June 05, 2022 9:13am Note Date/Time June 05, 2022 9: 13am [facility] [address] [place] [address] Psychiatry Progress Note Signed Patient: Marley Osborn MR#: [id number] : 1955 Acct:[id number] Age/Sex: 66 / F Adm Date: 2 Loc: 1S Room: [address] [place] [address] Type : ADM IN Attending Dr: Reggie [...] score of 11/30 -Continue PT and OT. -CT scan of [...] signed by Marty Mclean MD> 06/05/22 0913 [facility] Work Phone: 1(572) 982-177701-03-2023 Progress note Author Marty brewster [facility] June 04, 2022 8:29am Note Date/Time June 04, 2022 8: 27am [facility] [address] [place] [address] Psychiatry Progress Note Signed Patient: Marley Osborn MR#: [id number] : 1955 Acct:[id number] Age/Sex: 66 / F Adm Date: 2 Loc: Room: [address] [place] [address] Type : ADM IN Attending Dr: Reggie [...] score of 05/01 -Continue PT and OT. -Order CT scan of the head -Continue risperidone 1 mg po q daily and 3 mg po hs. -Fall risk; continue safety precautions -Continue to monitor mental status -Risks, benefits, and alternatives of treatment explained -Consult hospitalist for underlying medical problems, hypokalemia and UTI. Continue oral antibiotics per hospitalist recommendations. Levofloxacin day 2. Documented By: Marty Mclean MD 3 08 Signed By: <Electronically signed by Marty Mclean MD> 06/04/22 0829 [facility] Work Phone: 1(536) 959-164001-02-2023 Progress note Author Marty brewster [facility] June 03, 2022 12:55pm Note Date/Time June 03, 2022 10 :30am [facility] [address] [place] [address] Psychiatry Progress Note Signed with Addenda Patient: Marley Osborn MR#: [id number] : 1955 Acct:[id number] Age/Sex: 66 / F Adm Date: 2 Loc: Room: [address] [place] [address] Type : ADM IN Attending Dr: Reggie [...] difficulty overnight understanding directions and needed constant [id number] prompting tocomplete tasks like going to bathroom [...] impairment/dementia with MMSE score of 30 -Continue risperidone 1 mg po q daily [...] signed by MD TARA Vasquez> 06/03/22 1206 [facility] Work Phone: 1(658) 416-214301-01-2023 Consult note Author Elvin Khan [facility] June 02, 2022 12:01pm Note Date/Time June 01, 2022 12:13pm [facility] [address] [place] [address] Hospitalist Consult Note Signed Patient: Marley Osborn MR#: [id number] : 1955 Acct:[id number] Age/Sex: 66 / F Adm Date: 2 Loc: Room: [address] [place] [address] Type: ADM IN Attending Dr: Reggie Quintana MD Copies to: MD Elvin Noel MD Kim E Knight, MD Paula G Smith, GLOVE FINISHER~ HPI DATE OF CONSULTATION: 06/01/22 REQUESTING PROVIDER: Reggie Quintana Consult Narrative Reason for Consult: Anemia, hypokalemia, and confusion HPI: Mrs. Osborn is a 66-year-old female with a PMH of schizophrenia, dementia, and HTN that was transferred to [facility] for MHP from [facility] where she was hospitalized for increasing confusion and aggression. Patient seen and evaluated in 1 S., she is sitting in a table eating lunch. She is alert. She denies chest pain, shortness of breath. She denies dysuria. She denies fever, chills. She was admitted to [facility] and work-up included a CT [...] was previously treated with IV levofloxacin at [facility] for UTI. Hospitalist team has been consulted for medical management of anemia, hypokalemia, UTI, and confusion. Thank you for this consultation. Review of Systems Review of Systems Review of systems: A 10 point review of systems was obtained, negative unless noted in the HPI or below. [facility] Vaccinated for COVID-19?: No Medical History (Updated [...] % (Auto) 57.4, Lymph % (Auto) 26.3, Tensas % (Auto) 11.7, Eos % (Auto) 4.1, Baso % (Auto) 0.5, Nucleat RBC Rel Count 0.3, Neut # (Auto) 2.9, Lymph # (Auto) 1.3, Tensas # (Auto) 0.6, Eos # (Auto) 0.2, Baso # (Auto) 0.0 05/31/22 21:37: Urine Color Yellow, Urine Appearance Clear, Urine pH 5.5, Ur Specific [place] 1.030, Urine Protein Negative, Urine Glucose (UA) [...] UA repeated, culture pending ? Sensitivity from TB shows Streptococcus agalactiae ? Oral levofloxacin x3 days Confusion could be secondary to UTI or increasing dementia ? Check TSH, B12, folate HTN ? Continue to monitor Documented By: Anca Wheeler APRN 06/01/22 1211 Signed By: <Electronically signed by DENIA Wheeler> 06/01/22 1246 <Electronically signed by Elvin Khan MD> 06/02/22 1201 [facility] Work Phone: 1(895) 873-110401-01-2023 Progress note Author Marty brewster [facility] June 02, 2022 9:23am Note Date/Time June 02, 2022 9: 23am [facility] [address] [place] [address] Psychiatry Progress Note Signed Patient: Marley Osborn MR#: [id number] : 1955 Acct:[id number] Age/Sex: 66 / F Adm Date: 2 Loc: Room: [address] [place] [address] Type : ADM IN Attending Dr: Reggie [...] signed by Marty Mclean MD> 06/02/22 0923 [facility] Work Phone: 1([phone]) 586-403112-31-2022 Progress note Author Marty brewster [facility] June 01, 2022 8:51am Note Date/Time June 01, 2022 8:50am [facility] [address] [place] [address] Psychiatry Progress Note Signed Patient: Marley Osborn MR#: [id number] : 1955 Acct:[id number] Age/Sex: 66 / F Adm Date: 2 Loc: Room: [address] [place] [address] Type : ADM IN Attending Dr: Reggie Quintana MD Copies to: ~ Date of Service: 06/01/2022 Subjective Subjective Narrative: Ms. Osborn is a 66 year old female transferred from [facility] where she was admitted 05/27 for UTI [...] difficulty. History of schizophrenia with multiple hospitalizations. [facility] ruled out CVA with negative head CT and negative head/neck CTA. -Continue risperidone per -Given recent UTI with altered mental status, repeat UA today. Received IV levaquin while at [facility] beginning 05/27. Cultures pending at time of transfer. -CBC, BMP labs to monitor signs of infection, electrolytes -Fall risk; continue safety precautions -Continue to monitor mental status -Risks, benefits, and alternatives of treatment explained -Consult hospitalist for underlying medical problems. Documented By: Marty Mclean MD 2 0849 Signed By: <Electronically signed by Marty Mclean MD> 06/01/22 0851 [facility] Work Phone: 1(310) 140-627712-30-2022 History and physical note Author Reggie Quintana [facility] May 31, 2022 1:20pm Note Date/Time May 31, 2022 11:07am [facility] [address] [place] [address] Psychiatry H&P Signed Patient: Marley Osborn MR#: [id number] : 1955 Acct:[id number] Age/Sex: 66 / F Adm Date: 2 Loc: 1S Room: [address] [place] [address] Type: ADM IN Attending Dr: Reggie Quintana MD Copies to: MD Melva Noel MD Rebecca Howard, MD, RES~ Date of Service: 05/31/2022 HPI History of Present Illness History of present illness: Ms. Osborn is a 66 year old female transferred from [facility] where she was admitted 05/27 for UTI with confusion, dysphagia, and incomprehensible, slurred speech. According to nursing admit notes, she has been displaying more aggressive behavior hitting , jumping on bed, and breaking things at home. She has reportedly had hallucinations since March. Her outpatient psychiatrist increased her risperidone 2-3 months ago in response to these symptoms. Reported discharge from [facility] 3 weeks ago; I cannot see [...] Not oriented to time; states mother in 1911 . Fall precautions in place CNII: Visual [...] difficulty. History of schizophrenia with multiple hospitalizations. [facility] ruled out CVA with negative head CT and negative head/neck CTA. -Restarted home risperidone, dose increased to 3mg. To increase to twice daily beginning tomorrow. -Discontinued home Abilify for concerns of polypharmacy. -Given recent UTI with altered mental status, repeat UA today. Received IV levaquin while at [facility] beginning 05/27. Cultures pending at time of transfer. -CBC, BMP labs to monitor signs of infection, electrolytes -Fall risk; continue safety precautions -Continue to monitor mental status -Risks, benefits, and alternatives of treatment explained Documented By: Reggie Quintana MD 05/31/22 1054 Signed By: <Electronically signed by Reggie Quintana MD> 05/31/22 1320 <Electronically signed by MD TARA Vasquez> 05/31/22 1229 [facility] Work Phone: Discharge summary Author Reggie Quintana [facility] June 18, 2022 2:21pm Note Date/Time June 18, 2022 2 :21pm [facility] [address] [place] [address] Discharge Summary Signed Patient: Marley Osborn MR#: [id number] : 1955 Acct:[id number] Age/Sex: 66 / F Adm Date: 2 Loc: Room: [address] [place] [address]: Reggie Quintana MD Copies to: [...] is a 66 [facility] for [facility]TI with confusion, dysphagia, andincomprehensible, slurred speech.? According to nursing admit notes, she has been displaying more aggressive behavior hitting , jumping on bed, and breaking things at home.? She has reportedly had hallucinations since March. Her outpatient psychiatrist increased her risperidone 2-3 months ago in responseto these symptoms. Reported discharge from [facility] 3 weeks ago; I cannot see [...] diet. No activity restrictions. Instructions: Schizophrenia (DC), [facility] Instructions Prescriptions: New risperidone [...] Patient Ordered By: Reggie Quintana Follow Up: [facility] [Outside] - 06/19/22 9:15 am (Case Management: Friday06/17/22 11:15am, Yusra will call you for a discharge follow up. Psychiatry: 07/02/22 at 10:30am with Dr. Lazaro) [facility] Hotline [Outside] Melva Escobedo MD [Primary Care Provider] - 06/24/22 1:30 pm (for home health referral) Documented By: Reggie Quintana MD 06/18/22 1419 Signed By: <Electronically signed by Reggie Quintana MD> 06/18/22 1421 [facility] Work Phone: Evaluation + Plan note Future Appointments Appointment Date:06/24/2023 01:40:00 PM Scheduled Provider:Keya Lucas Location:[facility] Appointment Type:FM Open Appointment Date:02/24/2024 11:00:00 AM Scheduled [facility] Type:FM Medicare Wellness Subsequent Diagnostic Tests Pending * T3 [facility] Diagnosis Onset Date Resolution Status AMS (altered mental status) acute Anemia acute Confusion acute HTN (hypertension) acute Hypokalemia acute Neurocognitive disorder acut e Schizophrenia acute UTI (urinary tract infection) acute Vaginitis acute [facility] Work Phone: Evaluation note* Diagnosis Altered mental status, unspecified altered mental status type- Primary Hypernatremia Hyperosmolality and/or hypernatremia Urinary tract infection without hematuria, site unspecified documented in this encounter [facility] Work Phone: Hospital course Narrative No data available for this section [facility] instructions[facility]ulatory Orders* DME Home Medical Equipment Time Frame: 1 Year, Location: Determined By Patient Additional Instructions Regular diet. No activity restrictions.[facility] Work Phone: Hospital Discharge instructions No data available for this section [facility] No data available for this section [facility] Chief Complaint and Reason for Visit Chief [...] Found No data available for this section No Family History Records Found Additional Source Comments Care Teams (unrecognized sec tion and content) Team Status: Inactive Member Role Status Dates Melva Escobedo MD Primary Care Provider Active Reggie Quintana MD Admit Provider, Attending Provider Active Judith Cordoba MD Other Provider Active Team Status: Active Member Role Status Dates Melva Escobedo MD Primary Care Provider Active Laboratory Monitor Relationship Specialty Start Date End Date Jamil Lundberg MD [address] [place] [address] PCP - General Psychiatry 08/25/22 Laboratory Monitor Relationship Specialty Start Date End Date Jamil Lundberg MD [address] [place] [address] PCP - General Psychiatry 08/25/22 Laboratory Monitor Relationship Specialty Start Date End Date Jamil Lundberg MD [address] [place] [address] PCP - General Psychiatry 08/25/22 Laboratory Monitor Relationship Specialty Start Date End Date Jamil Lundberg MD [address] [place] [address] PCP - General Psychiatry 08/25/22 Laboratory Monitor Relationship Specialty Start Date End Date Jamil Lundberg MD [address] [place] [address] PCP - General Psychiatry 08/25/22 Laboratory Monitor Relationship Specialty Start Date End Date Jamil Lundberg MD [address] [place] [address] PCP - General Psychiatry 08/25/22 INFORMATION SOURCE (unrecogn ized section and content) DATE CREATED AUTHOR 09/17/2022 [facility] DATE CREATED AUTHOR AUTHOR'S ORGANIZ ATION 10/10/2022 [facility] DATE CREATED AUTHOR AUTHOR'S ORGANIZ ATION 10/11/2022 [facility] DATE CREATED AUTHOR AUTHOR'S ORGANIZ ATION 10/15/2022 [facility] DATE CREATED AUTHOR AUTHOR'S ORGANIZ ATION 04/30/2023 [facility] DATE CREATED AUTHOR AUTHOR'S ORGANIZ ATION 05/29/2023 [facility] DATE CREATED AUTHOR AUTHOR'S ORGANIZ ATION 07/05/2023 [facility] Reason for Visit (unrecogniz ed section and [...] BE BASED ON THE PRIMARY CLINICAL RECORDS. [employer] [facility]. provides no warranty or guarantee of the accuracy or completeness of information in this document.
== END 2023-07-18 10:12 | disposition home or self-care (01) ==
LOC: MAMMO 10:12
PROVIDERS: PCP Nurse Practitioner; Visit Provider Nurse Practitioner
DX: N63.10 Unspecified lump in the right breast, unspecified quadrant (principal); Z80.3 Family history of malignant neoplasm of breast; Z80.42 Family history of malignant neoplasm of prostate; Z80.0 Family history of malignant neoplasm of digestive organs; Z80.1 Family history of malignant neoplasm of trachea, bronchus and lung; Z80.8 Family history of malignant neoplasm of other organs or systems
CPT/HCPCS: 76642; 77065; G0279

== ENCOUNTER 2023-07-28 13:41 | Day surgery (SDC) | payer MEDICARE, SELFPAY ==
--- NOTE | 2023-07-28 13:45 | MM_ITS ---
Patient Name: MARLEY OSBORN MR#: [id number] : 1955 Exam Date: 07/28/2023 Ordering Doctor: KATYA WEAVER . This report includes an Addendum and supersedes previous reports for this exam. RADIOLOGY REPORT PROCEDURE: MM POST BIOPSY RT COMPARISON: MM STEREOTACTIC LOC RT, 07/28/2023. INDICATIONS: Right Breast Mass BREAST COMPOSITION: Heterogeneously dense,which may obscure small masses. FINDINGS: BIOPSY MARKER: A metallic marker has been placed in the targeted location within the lower inner quadrant of the right breast. BREAST FINDINGS: Postprocedural changes with subcutaneous emphysema in density Dictated by: Damien Weiss MD on 07/28/2023 at 15:43 Approved by: Damien Weiss MD on 07/28/2023 at 15:44 ADDENDUM: FINDINGS: DIAGNOSTIC CATEGORY 6--KNOWN BIOPSY PROVEN MALIGNANCY: RIGHT BREAST RECOMMENDATIONS: SURGICAL CONSULTATION. Dictated by: Damien Weiss MD on 08/06/2023 at 09:14 Approved by: Damien Weiss MD on 08/06/2023 at 09:15
--- NOTE | 2023-07-28 13:45 | MM_ITS ---
Patient Name: MARLEY OSBORN MR#: [id number] : 1955 Exam Date: 07/28/2023 Ordering Doctor: KATYA NIEVES . This report includes an Addendum and supersedes previous reports for this exam. RADIOLOGY REPORT PROCEDURE: MM STEREOTACTIC LOC RT COMPARISON: MM TOMOSYNTHESIS DIAGNOSTIC RT, 07/18/2023. INDICATIONS: Right Breast Mass DESCRIPTION: Following informed consent, digital stereotactic mammographic views were obtained to localize the lesion. Multiple vacuum-assisted core biopsies were obtained. Specimen images were obtained to confirm proper sampling. The location of the biopsy was then marked as indicated below. FINDINGS: RECOMMENDATIONS: SPECIMEN #, LOCATION: Six samples, spiculated nodule lower inner quadrant, right mid breast SPECIMEN IMAGE: Targeted densities felt to be visualized in the 3. And 5. Samples BIOPSY NEEDLE: 10 gauge Revolve(r) vacuum core biopsy needle. MARKER(S) PLACED: A single metallic marker was placed in the appropriate targeted location. MEDICATION: 4 cubic cm 1% Buffered 1% lidocaine superficial; 6 cubic cm 1% lidocaine with epinephrine deep. COMPLICATIONS: None. PATHOLOGY / LAB: Pending. CONCLUSION: 1. Technically successful biopsy of the breast lesion. 2. Pathology results are pending. An addendum will be added when pathology results are final. Dictated by: Damien Weiss MD on 07/28/2023 at 15:40 Approved by: Damien Weiss MD on 07/28/2023 at 15:43 ADDENDUM: The pathology report is now available and shows : Invasive ductal carcinoma, NOS type with minor lobular features. Pathology report was faxed to Laya Nieves, nurse practitioner August 05, 2023 and receipt verified with Crystal by telephone. Surgery and oncology follow-up is required Dictated by: Damien Weiss MD on 08/06/2023 at 09:13 Approved by: Damien Weiss MD on 08/06/2023 at 09:14
[2023-07-28 14:00] VITALS: BP 135/69; PULSE 72; O2SAT 99
--- NOTE | 2023-07-28 15:36 | SUR.PREOP ---
07/18/23 Pt and instructed on procedure, date, time, and prep.
== END 2023-07-28 15:25 | disposition home or self-care (01) ==
LOC: MAMMO 13:41
PROVIDERS: Radiology Diagnostic Radiology; PCP Nurse Practitioner; Visit Provider Nurse Practitioner
DX: C50.311 Malignant neoplasm of lower-inner quadrant of right female breast (principal); Z17.0 Estrogen receptor positive status [ER+]
CPT/HCPCS: 19081; 77065; 88305; 88342; 88360

== ENCOUNTER 2023-09-09 14:06 | Outpatient (OUT) | payer MEDICARE, SELFPAY ==
--- NOTE | 2023-09-09 14:12 | US_ITS ---
Patient Name: MARLEY OSBORN MR#: [id number] : 1955 Exam Date: 09/09/2023 Ordering Doctor: Non-Staff Physician RADIOLOGY REPORT PROCEDURE: MM TOMOSYNTHESIS DIAGNOSTIC LT, 09/09/2023, 13:20 US BREAST LT LIMITED, 09/09/2023, 14:33 COMPARISON: MM TOMOSYNTHESIS SCREENING BI, 04/11/2023. MM POST BIOPSY RT, 07/28/2023. MM STEREOTACTIC LOC RT, 07/28/2023. INDICATIONS: Malignant Neoplasm Right Breast Calculator Name NCI Breast Cancer Risk Assessment Tool 5 Year Breast Cancer Risk 5.50% Lifetime Breast Cancer Risk 16.90% Personal Breast Cancer No Personal Ovarian Cancer No Treatments None Family Cancers Mother with breast cancer at age 86; Brother with prostate cancer at age 64; Nephew with colon cancer at age 47; Grandfather-paternal with colon cancer at age ~60; Grandfather-paternal with lung cancer at age 30; Grandmother-maternal with uterine cancer at age ~50. LOCATION: [facility] BREAST COMPOSITION: Heterogeneously dense,which may obscure small masses. FINDINGS: DIAGNOSTIC CATEGORY 2--BENIGN FINDING. NO CHANGE FROM COMPARISON. The left breast is stable in size and overall fibroglandular configuration with a nodular parenchymal pattern limiting diagnostic sensitivity. Stable inversion of the nipple is observed. Ultrasound demonstrates an inverted nipple no focal mass. Borderline dilatation of a single duct measuring 1.7 x 2.5 mm no intraluminal mass. Further evaluation should be based on clinical and physical exam RECOMMENDATIONS: ROUTINE MAMMOGRAM AND CLINICAL EVALUATION IN 12 MONTHS. PLEASE NOTE: A NORMAL MAMMOGRAM DOES NOT EXCLUDE THE POSSIBILITY OF BREAST CANCER. A CLINICALLY SUSPICIOUS PALPABLE LUMP SHOULD BE BIOPSIED. Dictated by: Damien Weiss MD on 09/09/2023 at 14:49 Approved by: Damien Weiss MD on 09/09/2023 at 14:53
== END 2023-09-09 14:07 | disposition home or self-care (01) ==
LOC: US 14:06
PROVIDERS: PCP Nurse Practitioner
DX: N64.59 Other signs and symptoms in breast (principal); C50.911 Malignant neoplasm of unspecified site of right female breast; Z80.3 Family history of malignant neoplasm of breast; Z80.42 Family history of malignant neoplasm of prostate; Z80.0 Family history of malignant neoplasm of digestive organs; Z80.1 Family history of malignant neoplasm of trachea, bronchus and lung; Z80.8 Family history of malignant neoplasm of other organs or systems
CPT/HCPCS: 76642; 77065; G0279

== ENCOUNTER 2023-10-08 08:45 | Outpatient (OUT) | payer MEDICARE, SELFPAY ==
--- NOTE | 2023-10-08 09:01 | ECG_ITS ---
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
--- NOTE | 2023-10-08 09:49 | P.GSHP_ITS ---
History of Present Illness History of Present Illness Chief complaint: right breast invasive ductal carcinoma Narrative: Patient presents for preadmission testing accompanied by her . The patient has been diagnosed with breast cancer, states she has nipple inversion but no other complaints. The patient has a long history of depression and schizophrenia with catatonia. She has had many admissions for psychiatric care, And was on hospice care in the past. After a stay in the [place] facility last year, she was released from hospice care and returned home in December and has been doing well ever since. Her helps care for her at home. She also has a hisstory of atrial fibrillation with no intervention, she was on Eliquis, but was taken off of anticoagulants when she was admitted to the [place] due to frequent falls. Review of Systems ROS Narrative REVIEW OF SYSTEMS: Negative except as stated in HPI, ten or more systems reviewed. Constitutional: No fever , chills, weakness ENT: No sore throat or epistaxis Cardiovascular: No edema or chest pain; intermittent palpitations and activity intolerance Respiratory: No cough or wheezing Musculoskeletal: No joint pain or swelling Gastrointestinal: No abdominal pain, constipation, diarrhea, or vomiting Genitourinary: No dysuria or hematuria Neurological: No numbness, tingling, weakness, or headache Psychiatric: No recent mood changes [facility] Medical History (Updated 10/08/23 @ 09:48 by Zee Crowe NP) History of admission to inpatient psychiatry department ?Z86.59 - Personal history of other mental and behavioral disorders (ICD-10) Palpitations ?R00.2 - Palpitations (ICD-10) History of blood transfusion ?Z92.89 - Personal history of other medical treatment (ICD-10) Anemia ?D64.9 - Anemia, unspecified (ICD-10) Urinary tract infection ?N39.0 - Urinary tract infection, site not specified (ICD-10) Falls ?W19.XXXA - Unspecified fall, initial encounter (ICD-10) Atrial fibrillation ?I48.91 - Unspecified atrial fibrillation (ICD-10) Uterine fibroid ?D25.9 - Leiomyoma of uterus, unspecified (ICD-10) Paranoid schizophrenia ?F20.0 - Paranoid schizophrenia (ICD-10) IBS (irritable bowel syndrome) ?K58.9 - Irritable bowel syndrome without diarrhea (ICD-10) Vitamin D deficiency ?E55.9 - Vitamin D deficiency, unspecified (ICD-10) Osteopenia ?M85.80 - Other specified disorders of bone density and structure, unspecified site (ICD-10) Sleep apnea ?G47.30 - Sleep apnea, unspecified (ICD-10) Major depression with psychotic features ?F32.3 - Major depressive disorder, single episode, severe with psychotic f eatures (ICD-10) Memory loss ?R41.3 - Other amnesia (ICD-10) Inversion, nipple ?N64.59 - Other signs and symptoms in breast (ICD-10) Hypothyroid ?E03.9 - Hypothyroidism, unspecified (ICD-10) Hyperlipidemia ?E78.5 - Hyperlipidemia, unspecified (ICD-10) Hypertension ?I10 - Essential (primary) hypertension (ICD-10) Fatigue ?R53.83 - Other fatigue (ICD-10) Anxiety ?F41.9 - Anxiety disorder, unspecified (ICD-10) DCIS (ductal carcinoma in situ) ?D05.10 - Intraductal carcinoma in situ of unspecified breast (ICD-10) Invasive ductal carcinoma of breast ?C50.919 - Malignant neoplasm of unspecified site of unspecified female breast (ICD-10) Osteoporosis ?M81.0 - Age-related osteoporosis without current pathological fracture (ICD- 10) Depression with anxiety ?F41.8 - Other specified anxiety disorders (ICD-10) Arthritis ?M19.90 - Unspecified osteoarthritis, unspecified site (ICD-10) GERD (gastroesophageal reflux disease) ?K21.9 - Gastro-esophageal reflux disease without esophagitis (ICD-10) Arrhythmia ?I49.9 - Cardiac arrhythmia, unspecified (ICD-10) Schizophrenia ?F20.9 - Schizophrenia, unspecified (ICD-10) Surgical History (Updated 10/08/23 @ 09:10 by Zee Crowe NP) Hx of tonsillectomy ?Z90.89 - Acquired absence of other organs (ICD-10) History of cataract extraction with lens replacement H/O cataract extraction ?Z98.49 - Cataract extraction status, unspecified eye (ICD-10) H/O breast biopsy ?Z98.890 - Other specified postprocedural states (ICD-10) S/P breast biopsy, right ?Z98.890 - Other specified postprocedural states (ICD-10) H/O exploratory laparotomy ?Z98.890 - Other specified postprocedural states (ICD-10) History of adenoidectomy ?Z90.89 - Acquired absence of other organs (ICD-10) HX: benign breast biopsy ?Z98.890 - Other specified postprocedural states (ICD-10) S/P lumpectomy, left breast ?Z98.890 - Other specified postprocedural states (ICD-10) H/O colonoscopy ?Z98.890 - Other specified postprocedural states (ICD-10) Family History (Updated 10/08/23 @ 09:22 by Zee Crowe NP) Other ALS (amyotrophic lateral sclerosis) Dementia Family history of breast cancer Family history of myocardial infarction Social History (Updated 10/08/23 @ 09:16 by Zee Crowe NP) Within the past year, how often did you have a drink containing alcohol: monthly or less Smoking status: Never smoker Non-prescribed substance use: denies use Highest level of school completed/degree received: high school graduate Meds Home Medications and Allergies Home Medications ?Medication ?Instructions ?Recorded ?Confirmed ?Type alendronate 70 mg tablet 70 mg PO QWEEK 05/05/23 10/08/23 History haloperidol 5 mg tablet 5 mg PO BID 05/05/23 10/08/23 History levothyroxine 50 mcg capsule 50 mcg PO DAILY 05/05/23 10/08/23 History quetiapine 25 mg tablet (Seroquel) 50 mg PO .every evening 05/05/23 10/08/23 History ergocalciferol (vitamin D2) 1,250 1,250 mcg PO QWEEK 07/28/23 10/08/23 History mcg (50,000 unit) capsule (Vitamin D2) Allergies Allergy/AdvReac Type Severity Reaction Status Date / Time amoxicillin Allergy Hives Verified 08/14/23 14:39 cephalexin [From Keflex] Allergy Hives Verified 07/28/23 15:33 Sulfa (Sulfonamide Allergy Hives Verified 07/28/23 15:33 Antibiotics) Exam Narrative Exam Narrative: Constitutional: Awake, alert, comfortable, nontoxic, slow to respond but answers appropriately, interactive, vital signs as charted Head: Normocephalic, atraumatic Neck: Supple, normal appearance, normal range of motion, no meningeal signs, no lymphadenopathy Respiratory: No respiratory distress, breath sounds clear Cardiovascular: Regular rate and rhythm, strong and regular heart tones Musculoskeletal: Shuffling gait, no swelling or edema Skin: No rashes or induration, no lesions, only visible skin inspected Neuro: No neurological deficits, normal sensation Psychiatric: Oriented ?3, flat affect Assessment and Plan Assessment and Plan (1) Invasive ductal carcinoma of breast: (2) DCIS (ductal carcinoma in situ): Plan Right breast needle localization lumpectomy with sentinel node biopsy scheduled with Dr. Dunn 10/22/2023.
[2023-10-08 10:08] LABS: Anion Gap 10.1; BUN Creatinine Ratio 15.9; Calcium 9.7 mg/dL (8.5-10.1); Carbon Dioxide 30.9 mmol/L (21.0-32.0); Chloride 104 mmol/L (98-107); Estimated GFR (African America 58 (>=60); Estimated GFR (Non-African Ame 48 (>=60); Glucose 83 mg/dL (74-106); Sodium 141 mmol/L (136-145)
[2023-10-08 10:41] LABS: Basophils Percent Auto 0.9 % (0.2-2.0); Eosinophils Absolute Auto 0.1 10^3/uL (0.0-0.7); Eosinophils Percent Auto 1.3 % (0.9-7.0); Hematocrit 37.2 % (36.0-48.0); Immature Granulocytes Abs Auto 0.01 10^3/uL (0.00-0.03); Immature Granulocytes Pct Auto 0.2 % (0.0-0.5); Lymphocytes Absolute Auto 1.2 10^3/uL (1.2-3.8); Lymphocytes Percent Auto 26.5 % (20.5-60.0); Mean Corpuscular HGB Conc 32.3 g/dL (29.9-35.2); Monocytes Absolute Auto 0.3 10^3/uL (0.3-0.8); Monocytes Percent Auto 7.4 % (1.7-12.0); Neutrophils Absolute Auto 2.8 10^3/uL (1.4-6.5); Neutrophils Percent Auto 63.7 % (43.0-75.0); Platelet Count 210 10^3/uL (150-450); Red Cell Distribution Width 13.1 % (11.0-15.0); White Blood Count 4.5 10^3/uL (4.0-11.0)
[2023-10-08 10:47] LABS: INR 0.99; Prothrombin Time 10.5 sec (9.0-11.6)
== END 2023-10-08 08:46 | disposition home or self-care (01) ==
LOC: PST 08:46
PROVIDERS: PCP Nurse Practitioner; Visit Provider Surgery
DX: Z01.810 Encounter for preprocedural cardiovascular examination (principal); Z01.812 Encounter for preprocedural laboratory examination; Z01.818 Encounter for other preprocedural examination; C50.511 Malignant neoplasm of lower-outer quadrant of right female breast
CPT/HCPCS: 80048; 85025; 85610; 85730; 93005; G0463

== ENCOUNTER 2023-10-22 08:48 | Outpatient (OUT) | payer MEDICARE, SELFPAY ==
--- NOTE | 2023-10-22 10:00 | CA_ITS ---
Patient Name: MARLEY OSBORN MR#: [id number] : 1955 Exam Date: 10/22/2023 Ordering Doctor: DR ABDIRASHID MO M.D. ECHOCARDIOGRAM REPORT PROCEDURE: CA ECHO DOPPLER COMPLETE INDICATIONS: pre op COMPARISON: None. DESCRIPTION: COMPLETE ECHOCARDIOGRAM Real-time transthoracic echocardiography with 2D, M-mode, spectral and color flow Doppler performed. QUALITY: Technical quality was good. LEFT VENTRICLE: Normal chamber size. Normal left ventricular wall thickness. LV EF: Global left ventricular systolic function is normal. Visual estimation of left ventricular ejection fraction is 60%. No obvious segmental wall motion abnormalities. DIASTOLIC: Normal diastolic function. ATRIAL SEPTUM: Inadequately seen. LEFT ATRIUM: Normal chamber size. RIGHT ATRIUM: Normal chamber size. RIGHT VENTRICLE: Normal chamber size. Normal systolic function. TRICUSPID VALVE: Normal mobility and thickness. Mild regurgitation. No evidence of pulmonary hypertension. RVSP 23mmHg MITRAL VALVE: Normal mobility and thickness. No evidence of mitral valve stenosis. Mild mitral regurgitation. AORTIC VALVE: Normal trileaflet appearance. Thickened aortic valve. Normal leaflet mobility. No evidence of aortic valve stenosis. No aortic regurgitation. AORTIC ROOT: Normal diameter and appearance. PULMONIC VALVE: Normal thickness and mobility. No stenosis. Trivial regurgitation. PERICARDIUM: No evidence of pericardial effusion. IVC: Collapses with inspirations. normal size. CONCLUSION: 1. Global left ventricular systolic function is normal; visually estimated ejection fraction is 55 to 60% 2. Normal right ventricular size and systolic function 3. Normal diastolic function 4. Mild tricuspid regurgitation 5. Mild mitral regurgitation Adult Echocardiography Procedure Report Left Ventricle LVEDD (3.7 - 5.6 cm): 4.00 cm LVESD (2.2 - 4.0 cm): 2.94 cm LVIVS thickness (0.6 - 1.2 cm): 0.76 cm LVPW thickness (0.5 - 1.0 cm): 0.84 cm e': 0.07 m/s E - e': 8.67 LVOT Max Gradient: 1.20 mm[Hg] LVOT Area (cm2): 0.55 m/s Peak Velocity (LVOT): 0.55 m/s Mean Velocity (LVOT): 0.36 m/s LVOT Diameter 1.80 cm Left Ventricular Ejection Fraction: 67.87 % Left Atrium LA Volume Index (2D A2C): 27.30 ml/m2 Left Atrium Systolic Dimension: 2.80 cm Mitral Valve MV E to A Ratio: 0.95 Mitral Valve A-Wave Peak Velocity: 0.68 m/s Mitral Valve E-Wave Peak Velocity: 0.64 m/s Right Ventricle RV Internal Diastolic Dimension: 3.29 cm Aorta AO Root Diam: 2.57 cm Ascending Ao Diam: 2.39 cm Aortic Valve AoV Area (Peak Lukas): 1.51 cm2, 1.51 cm2 AoV Area (VTI): 1.63 cm2, 1.63 cm2 Peak Velocity(Antegrade Flow): 0.93 m/s Peak Gradient(Antegrade Flow): 3.46 mm[Hg] Mean Velocity(Antegrade Flow): 0.64 m/s Mean Gradient(Antegrade Flow): 1.90 mm[Hg] Velocity Time Integral: 22.40 cm Tricuspid Valve Peak Velocity (Regurgitant Flow): 1.99 m/s, 1.88 m/s, 2.25 m/s Pulmonic Valve Peak Velocity: 0.67 m/s Peak Gradient: 1.71 mm[Hg], 1.94 mm[Hg] Right Atrium Right Atrium Systolic Pressure: 31.28 ml, 31.28 ml Dictated by: Abdirashid Mo M.D. on 10/22/2023 at 14:52 Approved by: Abdirashid Mo M.D. on 10/22/2023 at 14:59
== END 2023-10-22 08:49 | disposition home or self-care (01) ==
PROVIDERS: PCP Nurse Practitioner; Visit Provider Internal Medicine Interventional Cardiology
DX: Z01.810 Encounter for preprocedural cardiovascular examination (principal); R94.31 Abnormal electrocardiogram [ECG] [EKG]; Z01.818 Encounter for other preprocedural examination
CPT/HCPCS: 93306; 93356

== ENCOUNTER 2023-11-05 08:08 | Outpatient (OUT) | payer MEDICARE, SELFPAY ==
--- NOTE | 2023-11-05 08:00 | NM_ITS ---
Patient Name: MARLEY OSBORN MR#: [id number] : 1955 Exam Date: 11/05/2023 Ordering Doctor: DR JENNIFER CASANOVA M.D. RADIOLOGY REPORT PROCEDURE: NM [place] PERF SPECT REST STR COMPARISON: None. INDICATIONS: PRE PROCEDURE CARDIOVASCULAR EXAM, ABNORMAL EKG TECHNIQUE: Exam Description: Stress/Rest one day protocol gated SPECT Rest Imagin.4 mCi Tc-99m Cardiolite IV on 11/05/2023 Stress Imaging 30.3 mCi Tc-99m Cardiolite IV on 11/05/2023 Exercise Protocol: 0.4 mg Lexiscan given IV Heart Rate (bpm): Rest: 56 Max: 93 PMHR: 61 Blood Pressure: Rest: 138/84 Max: 138/84 Symptoms: Rest and peak stress ECG findings were pending and the exercise portion of the study was pending per attending physician Dr. PERAZA . For more details please see separate cardiac stress test report. FINDINGS: QUALITY OF STUDY: Excellent. PERFUSION DEFECT: None. LOCATION: N/A SIZE: N/A. SEVERITY: N/A. TYPE: N/A. WALL MOTION: Normal. LV SIZE: Normal. 51 mL. TID / TCD: None; 0.8 LVEF: Normal. Calculated EF 72%. SUMMARY: Myocardial perfusion imaging study is NORMAL. CONCLUSION: 1. Normal nuclear medicine myocardial perfusion scan. Dictated by: Myles Abraham M.D. on 11/06/2023 at 13:01 Approved by: Myles Abraham M.D. on 11/06/2023 at 13:03
--- OUTSIDE RECORDS SUMMARY | 2023-11-05 08:15 | XMS_ITS | CCD ---
Author Organization [facility] Care Team Providers Care Applications Support Lead Name Role Phone MD Melva Escobedo Primary Care Provider MD Reggie Quintana Admit Provider MD Reggie Quintana Attending Provider MD Judith Cordoba Other Provider Jamil Lundberg MD Primary Care Provider [phone] ESC[address] ., DR MELVA Laboy Admitting Unavailable ESCOBEDO ., DR MELVA Laboy Consulting Unavailable ESCOBEDO ., DR MELVA Laboy Primary Care Unavailable ESCOBEDO ., DR MELVA Laboy Attending Unavailable ESCOBEDO ., DR MELVA Laboy Consulting Unavailable ESCOBEDO ., DR MELVA Laboy Primary Care Unavailable ESOCBEDO ., DR MELVA aLboy Admitting Unavailable ESCOBEDO ., DR MELVA Laboy [...] Unavailable SORAYA ., WILLIAMS Admitting Unavailable HOY .DR SOLORZANO Consulting Unavailable GUDELIA, DR DENNIS Soto Consulting Unavailable PAY ., DR FORD Consulting Unavailable GRECHNY .SETH Consulting UnavailDENNIS Kate Consulting Unavailable ALYX GUZMAN Consulting Unavailable MICHELE LOZANO Consulting Unavailable RUCHI TRIMBLE Consulting Unavailable SORAYA ., WILLIAMS Consulting Unavailable ESCOBEDO ., DR MELVA Laboy Primary Care Unavailable SHAIKH Ingris ISABEL Attending Unavailable FAWWAD, SANTAMARIA H Admitting Unavailable FRANSISCO DE LA CRUZ Consulting Unavailable MAAME, H Consulting Unavailable GAUTAM, THANIA Consulting Unavailable [...] ESCOBEDO ., DR MELVA Laboy Attending Unavailable ZIEBER, DR DENNIS Soto Consulting Unavailable HAY ., DR TENORIO Consulting Unavailable MAAME, SHAIKH Ingris Consulting Unavailable OAKESJEFF BRASWELL Consulting Unavailable ESCOBEDO ., DR MELVA Laboy Consulting Unavailable ESCOBEDO ., DR MELVA Laboy Attending Unavailable ESCOBEDO ., DR MELVA Laboy Primary Care Unavailable ESCOBEDO ., DR MELVA Laboy Admitting Unavailable SUGAR GROVE, DR KAYLEY Snow Consulting Unavailable ESCOBEDO ., [...] ., DR MELVA Laboy Primary Care Unavailable MICHELE LOZANO Consulting Unavailable MICHELE LOZANO Attending Unavailable BLAKE, [...] Referring Unavailable AHMED, IRFAN Primary Care Unavailable SHUN, MEE Referring Unavailable AHMED, IRFAN Primary Care Unavailable MELVA MORALES Referring Unavailable Ahmed, Irfan Primary Care Unavailable Frank FACE BURLER-MOLDING AND TRIM INSTALLER, Malissa Soto Consulting Un available Alexandra ROPER, Louie Freeman Admitting Unavailable Alexandra ROPER, Louie Freeman Attending Unavailable Luz FACE BURLER-MOLDING AND TRIM INSTALLER, Cintia Rincon Consulting Unavailable Shay FACE BURLER-MOLDING AND TRIM INSTALLER, Rachel Delcid Consulting Margoth vailable LaMritausa, Cody Francis Consulting Unavailab shira Casas MD, Kei Veloz Consulting Unavailabl e Ahmed, Irfan Consulting Unavailable Ezequiel, Keya Turner Primary Care Physician JOSEPH DOMINGUEZ Attending Unavailable JOSEPH DOMINGUEZ Attending Unavailable ELJENNIFER WASHBURN Attending Unavailable Abhishek, Kayley Snow Admitting Unavailable West, Kayley Snow Attending Unavailable Melva Escobedo Primary Care Unavailable Marty Mclean Admitting Unavailab Marty Ames Attending Unavailab le Ezequiel, Keya Turner Attending Unavailable Ezequiel, Keya Turner Attending Unavailable Ezequiel, Keya Turner Attending Unavailable Ezequiel, Keya Turner Attending Unavailable Ezequiel, Keya L Attending Unavailable Ezequiel, Keya L Attending Unavailable Ezequiel, Keya L Attending Unavailable Ezequiel, Keya L Referring Unavailable Moi-MarDeb bravo Attending Unavailabl e Al-Marrawi, Deb Lopez Attending Unavailabl e Ezequiel, Keya Turner Attending Unavailable Ezequiel, Keya L Admitting Unavailable NILLMilo Attending Unavailable Ezequiel, Keya Turner Attending Unavailable Allergies Allergy Classification Reported Allergen(s) Allergy Type Date of Onset Reaction(s) Facility (6 sources) Amoxicillin; Translations: [Amoxicillin] Drug Allergy 5 Eruption of skin (disorder) [facility] (8 sources) Cephalexin; Translations: [cephalexin] Drug Allergy 2 Rash [facility] (3 sources) Lactose; Translations: [lactose] Drug Allergy 5 Diarrhea [facility] (2 sources) Sulfonamides (Antibiotic); Translations: [Sulfa (Sulfonamide Antibiotics)] Allergy to substance 2 Hives [facility] (7 sources) Penicillins; Translations: [penicillins] Propensity to adverse reactions to drug 3 Rash [facility] [employer] Phone: (7 sources) Sulfamethoxazole ; Translations: [sulfamethoxazol e] Drug Allergy 3 Rash [facility] [employer] Phone: (3 sources) Cephalexin; Translations: [Keflex] Drug Allergy 5 [facility] Rep[facility] (1 source) Sulfonamides (Antibiotic) Drug allergy (disorder) 5 [facility] (1 source) Sulfonamides (Antibiotic); Translations: [sulfa drugs] Propensity to adverse reactions to drug (disorder) [facility] Repository Medications Current Medications Medication Drug Class(es) Dates Sig (Normalized) Sig (Original) Acetaminophen (6 sources) Start: 02-21-2023 acetaminophen 500 mg, q6hr, PRN as needed for pain, Refills(s) 0 Start Date: 02/21/23 Status: Ordered take 1 tablet by hubert th every six hours as needed for pain acetaminophen (TYLENOL) 500 MG tablet Ta ke 1 tablet by mouth every 6 hours as needed for Pain 0 Active alendronic acid 70 mg oral tablet (4 sources) Bisphosphonate Start: 04-14-2023 Fosamax 70 mg Tab 70 mg = 1 tab(s), Oral, q7day, # 12 tab(s), Refills(s) 3, Pharmacy: [facility]/pharmacy #[id number], 153, cm, 02/21/23 11:33:00 EDT, [...] 0 Active bisacodyl 10 mg rectal suppository (2 sources) Stimulant Laxative Start: 02-21-2023 bisacodyl 10 mg, [...] 2022 12:00am haloperidol 5 mg oral tablet (6 sources) Typical Antipsychotic Start: 08-06-2023 haloperidol 5 mg Tab 5 mg = 1 tab(s), Oral, BID, changed to BID 06/11/23, # 180 tab(s), Refills(s) 1, Pharmacy: [facility]/pharmacy #[id number], 152, cm, 08/05/23 13:39:00 EST, Height/Length Dosing, 77.1, kg, 08/05/23 13:39:00 EST, Weight Dosing Start Date: 08/06/23 Status: Ordered Start: 02-04-2023 haloperidol 5 mg Tab 5 mg = 1 tab(s), Oral, BID, changed to BID 06/11/23, # 270 tab(s), Refills(s) 1, Pharmacy: [facility]/pharmacy #[id number], 154.9, cm, 02/04/23 10:18:00 EDT, Height/Length Dosing, 75, kg, 02/04/23 10:18:00 EDT, Weight Dosing Start Date: 02/04/23 Status: Ordered haloperidol lact ate (HALDOL) 5 MG/ML injection Inject into the muscle every 6 hours as needed for Agitation 0 Active Handicap Placard (4 sources) Start: 02-21-2023 Handicap Placard Handicap Placard, See Instructions, 1 EA, 0, 5 years, Supply Start Date: 02/21/23 Status: Ordered hydroCHLOROthiazide 12.5 mg oral tablet (2 sources) Thiazide Diuretic take 0.5 tablet by mouth once daily as needed hydroCHLOROthiazide (HYDRODIURIL) 12.5 MG tablet Take 0.5 tablets by mouth daily as needed 0 Active levothyroxine sodium 0.05 mg oral tablet (6 sources) l-Thyroxine Start: 08-05-2023 take 1 tablet by mouth once daily levothyroxine 50 mcg (0.05 mg) Tab 50 mcg = 1 tab(s), Oral, Daily, # 90 tab(s), Refills(s) 1, Pharmacy: [facility]/pharmacy #[id number], 152, cm, 06/24/23 13:38:00 EST, Height/Length Dosing, 77.3, kg, 06/24/23 13:38:00 EST, Weight Dosing Start Date: 08/05/23 Status: Ordered Start: 02-04-2023 take 1 tablet by hubert th once daily levothyroxine 50 mcg (0.05 mg) Tab 50 mcg = 1 tab(s), Oral, Daily, # 90 tab(s), Refills(s) 1, Pharmacy: [facility]/pharmacy #[id number], 154.9, cm, 02/04/23 10:18:00 EDT, Height/Length Dosing, 75, kg, 02/04/23 10:18:00 EDT, Weight Dosing Start Date: 02/04/23 Status: Ordered take 0.5 tablet by m out once daily levothyroxine (SYNTHROID) 100 MCG tablet [...] 0 Active QUEtiapine 50 mg oral tablet (4 sources) Atypical Antipsychotic Start: 08-04-2023 take 1 tablet by mouth once daily quetiapine 50 mg oral tablet 50 mg = 1 tab(s), Oral, Daily, # 90 tab(s), Refills(s) 1, Pharmacy: [facility]/pharmacy #[id number], 152, cm, 06/24/23 13:38:00 EST, Height/Length Dosing, 77.3, kg, 06/24/23 13:38:00 EST, Weight Dosing Start Date: 08/04/23 Status: Ordered Start: 02-04-2023 take 1 tablet by hubert once daily quetiapine 50 mg oral tablet 50 mg = 1 tab(s), Oral, Daily, # 90 tab(s), Refills(s) 1, Pharmacy: [facility]/pharmacy #[id number], 154.9, cm, 02/04/23 10:18:00 EDT, [...] muscle every 14 days 0 Active sennosides, assisted 8.6 mg oral tablet (4 sources) Start: 06-11-2023 take 1 tablet by mouth twice daily senna 8.6 mg Tab 8.6 mg = 1 tab(s), Oral, BID, # 60 tab(s), Refills(s) 5, Pharmacy: [facility]/pharmacy #[id number], 153, cm, 02/21/23 11:33:00 EDT, [...] mg take 1 tablet by mouth twice odminga ly ciprofloxacin (CIPRO) 500 MG tablet Take 1 tablet by mouth 2 times daily 0 Active Vitamin D 50,000 intl units (1.25 mg) oral capsule (3 sources) Start: 10-03-2023 take 1 capsule by mouth every week Vitamin D 50,000 intl units (1.25 mg) oral capsule 50,000 International_Unit = 1 cap(s), Oral, qWeek, # 4 cap(s), Refills(s) 3, Pharmacy: [facility]/pharmacy #[id number], 152, cm, 09/03/23 14:19:00 EDT, Height/Length Dosing, 78.3, kg, 09/03/23 14:19:00 EDT, Weight Dosing Start Date: 10/03/23 Status: Ordered Start: 06-24-2023 take 1 capsule by [facility] every week Vitamin D 50,000 intl units (1.25 mg) oral capsule 50,000 International_Unit = 1 cap(s), Oral, qWeek, # 4 cap(s), Refills(s) 3, Pharmacy: [facility]/pharmacy #[id number], 152, cm, 06/24/23 13:38:00 EST, Height/Length Dosing, 77.3, kg, 06/24/23 13:38:00 EST, Weight Dosing Start Date: 06/24/23 Status: Ordered Problems Active Problems Problem Classification Problem Date Documented Da te Episodic/Chronic Anxiety disorders (5 sources) Anxiety disorder, unspecified; Translations: [Anxiety disorder] Onset: 10-09-2022 08-13-2022 Chronic Bacterial infection; unspecified site (2 sources) Klebsiella pneumoniae [K. pneumoniae] as the cause of diseases classified elsewhere; Translations: [Unspecified Escherichia coli [E. coli] as the cause of diseases classified elsewhere] Onset: 09-12-2022 Episodic Cancer of breast (6 sources) Malignant neoplasm of unspecified site of right female breast; Translations: [Infiltrating duct carcinoma of breast] Onset: 09-01-2023 Chronic Cardiac dysrhythmias (8 sources) Unspecified atrial fibrillation; Translations: [Paroxysmal atrial fibrillation] Onset: 09-12-2022 Chronic Cardiac dysrhythmias (3 sources) Bradycardia, unspecified; Translations: [Tachycardia, unspecified] Onset: 06-10-2022 Episodic Chronic kidney disease (1 source) Chronic kidney disease; Translations: [CHRONIC KIDNEY DISEASE STAGE 3B] Onset: 09-12-2022 Coagulation and hemorrhagic disorders (1 source) Thrombocytopenia, unspecified; Translations: [THROMBOCYTOPENIA UNSPECIFIED] Onset: 09-12-2022 Chronic Coma; stupor; and brain damage (1 source) Daytime somnolence 06-24-2023 Episodic Deficiency and other anemia (1 source) Anemia; Translations: [Anemia, unspecified] 06-01-2022 Episodic Deficiency and other anemia (2 sources) Anemia, unspecified; Translations: [Anemia, unspecified] Onset: 09-12-2022 06-18-2022 Episodic Delirium, dementia, and amnestic and other cognitive disorders (1 source) Unspecified dementia without behavioral disturbance; Translations: [UNSP JAMEY UNS SEV W/O DSTRB ANXTY] Onset: 10-09-2022 Chronic Diseases of mouth; excluding dental (1 source) Dribbling from mouth 06-24-2023 Episodic Disorders of lipid metabolism (5 sources) Hyperlipidemia, unspecified; Translations: [Hyperlipidemia] Onset: 04-29-2022 08-13-2022 Chronic Essential hypertension (11 sources) Hypertensive disorder; Translations: [Essential (primary) hypertension] Onset: 12-12-2021 06-01-2022 Chronic Fluid and electrolyte disorders (7 sources) Hypokalemia; Translations: [Hypokalemia] Onset: 09-19-2022 06-01-2022 Episodic Heart valve disorders (2 sources) Nonrheumatic mitral (valve) insufficiency; Translations: [Nonrheumatic mitral (valve) insufficiency] Onset: 10-15-2023 Chronic Hypertension with complications and secondary hypertension (1 source) Hypertensive chronic kidney disease with stage 1 through stage 4 chronic kidney disease, or unspecified chronic kidney disease; Translations: [HTN CKD W/STAGE 1-4 CKD/UNS CKD] Onset: 09-12-2022 Chronic Inflammatory diseases of female pelvic organs (2 sources) Vaginitis; Translations: [Acute vaginitis] 06-15-2022 Episodic Malaise and fatigue (9 sources) Other fatigue; Translations: [Fatigue] Onset: 08-13-2022 Episodic Menopausal disorders (1 source) Hormone replacement therapy; Translations: [HORMONE REPLACEMENT THERAPY] Onset: 10-09-2022 Episodic Mood disorders (8 sources) Depressive disorder; Translations: [Major depression with psychotic features] 08-09-2022 Chronic Mood disorders (1 source) Mood disorders; Translations: [DEPRESSION UNSPECIFIED] Onset: 10-09-2022 Nonmalignant breast conditions (4 sources) Breast signs and symptoms; Translations: [Other signs and symptoms in breast] Onset: 09-01-2023 Episodic Nutritional deficiencies (3 sources) Vitamin D deficiency 06-24-2023 Chronic Other aftercare (5 sources) Other mcc (current) drug therapy; Translations: [OTH OIL FIELD OPERATOR CURRENT DRUG THERAPY] Onset: 11-29-2021 Episodic Other bone disease and musculoskeletal deformities (4 sources) Osteopenia 04-14-2023 Episodic Other bone disease and musculoskeletal deformities (1 source) Disorder of bone; Translations: [Other specified disorders of bone density and structure, unspecified site] Onset: 10-06-2023 Episodic Other connective tissue disease (2 sources) Spasm 08-13-2022 Episodic Other endocrine disorders (1 source) Hypoglycemia, unspecified; Translations: [HYPOGLYCEMIA UNSPECIFIED] Onset: 06-10-2022 Chronic Other gastrointestinal disorders (4 sources) Irritable bowel syndrome Onset: 11-30-1988 08-09-2022 Chronic Other lower respiratory disease (1 source) Gasping for breath 06-24-2023 Episodic Other nervous system disorders (1 source) Metabolic encephalopathy; Translations: [METABOLIC ENCEPHALOPATHY] Onset: 09-12-2022 Chronic Other nutritional; endocrine; and metabolic disorders (1 source) Obesity, unspecified; Translations: [OBESITY UNSPECIFIED] Onset: 10-09-2022 Chronic Other nutritional; endocrine; and metabolic disorders (1 source) Body mass index (BMI) 31.0-31.9, adult; Translations: [BODY MASS INDEX BMI 31.0-31.9 ADULT] Onset: 08-19-2022 Chronic Other nutritional; endocrine; and metabolic disorders (2 sources) Body mass index 30+ - obesity 09-03-2023 Chronic Other nutritional; endocrine; and metabolic disorders (2 sources) Obesity 09-03-2023 Chronic Other nutritional; endocrine; and metabolic disorders (1 source) Body mass index (BMI) 26.0-26.9, adult; Translations: [BODY MASS INDEX BMI 26.0-26.9 ADULT] Onset: 10-09-2022 Episodic Residual codes; unclassified (4 sources) Obstructive sleep apnea syndrome 08-13-2022 Chronic Residual codes; unclassified (1 source) Confusional state; Translations: [Disorientation, unspecified] 06-01-2022 Episodic Residual codes; unclassified (1 source) Neurocognitive disorder; Translations: [Unspecified symptoms and signs involving cognitive functions and awareness] 06-05-2022 Episodic Residual codes; unclassified (2 sources) Altered mental status; Translations: [Altered mental status, unspecified] 06-14-2022 Episodic Residual codes; unclassified (7 sources) Altered mental status, unspecified; Translations: [Altered mental status] Onset: 09-28-2022 06-18-2022 Episodic Residual codes; unclassified (1 source) Disorientation, unspecified; Translations: [Unspecified psychosis] 06-18-2022 Episodic Residual codes; unclassified (1 source) Unspecified symptoms and signs involving cognitive functions and awareness; Translations: [Unspecified persistent mental disorders due to conditions classified elsewhere] 06-18-2022 Episodic Residual codes; unclassified (1 source) Hypothermia, not associated with low environmental temperature; Translations: [HYPOTHERMIA NOT W/LOW ENVIR TEMP] Onset: 09-12-2022 Episodic Residual codes; unclassified (4 sources) Amnesia 08-13-2022 Episodic Schizophrenia and other psychotic disorders (12 sources) Schizophrenia; Translations: [Schizophrenia, unspecified] Onset: 06-02-2012 05-31-2022 Chronic Thyroid disorders (11 sources) Hypothyroidism, unspecified; Translations: [Hypothyroidism] Onset: 08-27-2022 Chronic Unclassified (4 sources) CONTACT W/AND (SUSP) EXPOS COVID-19; Translations: [CONTACT W/AND (SUSP) EXPOS COVID-19] Onset: 05-11-2022 Unclassified (1 source) CHRN KIDNEY DISEASE STG 3 UNSP; Translations: [CHRN KIDNEY DISEASE STG 3 UNSP] Onset: 06-10-2022 Urinary tract infections (12 sources) Urinary tract infectious disease; Translations: [Urinary tract infection, site not specified] Onset: 05-28-2022 06-01-2022 Episodic Viral infection (1 source) COVID-19; Translations: [COVID-19] Onset: 12-19-2021 Past or Other Problems Problem Classification Problem Date Documented Da te Episodic/Chronic Acute and unspecified renal failure (1 source) Acute kidney failure, unspecified; Translations: [ACUTE KIDNEY FAILURE UNSPECIFIED] Onset: 06-10-2022 Episodic E Codes: Fall (1 source) Fall in (into) shower or empty bathtub, initial encounter; Translations: [FALL IN SHOWER/EMPTY BATHTUB INIT] Onset: 12-18-2021 Episodic E Codes: Natural/environment (1 source) Exposure to other specified factors, initial encounter; Translations: [EXPOSURE OTHER SPEC FACTORS INITIAL] Onset: 06-10-2022 Episodic Genitourinary symptoms and ill-defined conditions (3 sources) Hematuria, unspecified; Translations: [HEMATURIA UNSPECIFIED] Onset: 04-03-2022 Episodic Immunizations and screening for infectious disease (1 source) Encounter for immunization; Translations: [ENCOUNTER FOR IMMUNIZATION] Onset: 12-18-2021 Episodic Open wounds of head; neck; and [...] ORGANISM] Onset: 04-29-2022 Episodic Residual codes; unclassified (1 source) Family [...] [CONTACT W/AND (SUSP) EXPOS COVID-19] Onset: 05-06-2022 Unclassified (8 sources) Patient encounter status 06-11-2023 Results Test Name Value Interpretation Reference Range Facil ity Echocardiographyon Echocardiography [id number]#[id number] Normal [facility] Orders Onlyon 10-23-2023 Orders Only [id number] Marley Osborn 1955 F Date Provider Department Center 10/23/2023 [id number], HISTORICAL CARD [facility] No family history on file Normal [facility] Office Visiton 10-15-2023 Follow-up visit [id number] Marley Osborn 1955 F Date Provider Department Center 10/15/2023 [id number], EHAB BH CARD [facility] No family history on file Level of Service:31557 CT OFFICE/OUTPATIENT ESTABLISHED HIGH MDM 40 MIN Normal [facility] ECG 12-Leadon 10-09-2023 ECG 12-Lead [id number]#[id number] Normal [facility] Insurance Correspondenceon 0 10-09-2023 Insurance Correspondence [id number]#[id number] Normal [facility] Lab Reportson 10-08-2023 Lab Reports [id number]#[id number] Normal [facility] Ambulatory Visit Summaryon 0 10-06-2023 Ambulatory Visit Summary MARLEY OSBORN :1955 Visit Date:10/06/2023 Ambulatory Visit Instructions Your Diagnosis Invasive ductal carcinoma of right breast Osteopenia Your Care Team Attending Physician - Thien ROPER, Deb Lopez Primary Care Physician - Keya Lucas Primary Nurse - Margret GONZALES, Oriana Greenfield RN This Is Your Medications List [facility] [place] Prescription (Handicap Placard) acetaminophen alendronate (Fosamax 70 mg Tab) ergocalciferol (Vitamin D 50,000 intl units (1.25 mg) oral capsule) haloperidol (haloperidol 5 mg Tab) levothyroxine (levothyroxine 50 mcg (0.05 mg) Tab) quetiapine (quetiapine 50 mg oral tablet) senna (senna 8.6 mg Tab) Procedures Performed Biopsy of breast (06/2023), Biopsy of breast (05/2023), Cataract (06/02/2019), Colonoscopy (01/2019), CEIOL - Cataract extraction and insertion of intraocular lens (04/28/2017), Biopsy of breast, Tonsillectomy and adenoidectomy. Discharge Vitals Temperature (Oral) 36.7 ?C Heart Rate (Peripheral) 64 Respiratory Rate 16 Blood Pressure 140/82 Height 152 cm Weight 78.9 kg BMI 34.15 What to do next Scheduled Follow-Up Appointments Friday 1:40 PM EDT With: Keya Lucas Where: [facility] Normal [address] [place] [phone] \.br\ Medications\.br\ What How Much When Why Instructions\.br\ Unchanged acetaminophen 500 Milligram Every 6 hours as needed for as needed for pain\.br\ Unchanged alendronate (Fosamax 70 mg Tab) 1 Tablets By Mouth Every 7 days Osteopenia\.br\ Unchanged ergocalciferol (Vitamin D 50,000 intl units (1.25 mg) oral capsule) 1 Capsules By Mouth Every week Fatigue Daytime somnolence Gasping for breath LISA (obstructive sleep apnea) Drooling BMI 33.0-33.9,adult Non-smoker\.br\ Unchanged haloperidol (haloperidol 5 mg Tab) 1 [...] Tablets By Mouth 2 times a day\.br\ Allergies\.br\ Keflex (rash)\.br\ penicillins (rash)\.br\ sulfamethoxazole (rash)\.br\ Problems\.br\ Ongoing - Any problem that you are currently receiving treatment for.\.br\ Anxiety disorder\.br\ BMI 33.0-33.9,adult\.br\ Fatigue\.br\ HTN (hypertension)\.br\ Hyperlipidemia, unspecified\.br\ Hypothyroid\.br\ Invasive ductal carcinoma of right breast\.br\ Inversion of left nipple\.br\ Loss of memory\.br\ Major depression with psychotic features\.br\ Obesity\.br\ LISA (obstructive sleep apnea)\.br\ Osteopenia\.br\ Schizophrenia\.br\ Vitamin D deficiency\.br\ Historical - Any problem that you are no longer receiving treatment for.\.br\ Depression\.br\ Hypothyroidism\.br\ IBS - Irritable bowel syndrome\.br\ Paranoid schizophrenia\.br\ Screening for hyperlipidemia\.br\ Wellness examination\.br\ Patient Survey\.br\ You may receive a survey via text or e-mail asking about your office visit. Please share your experience with us by completing your survey. We appreciate your feedback and thank you for choosing us for your care.\.br\ Education Materials\.br\ Lumpectomy, Care After\.br\ The following information offers guidance on how to care for yourself after your procedure. Your health care provider may also give you more specific instructions. If you have problems or questions, contact your health care provider.\.br\ What can I expect after the procedure?\.br\ After the procedure, it is common to have:\.br\ ? \.br\ Some pain or redness at the incision site.\.br\ ? \.br\ Breast swelling.\.br\ ? \.br\ Breast tenderness.\.br\ ? \.br\ Stiffness in your arm or shoulder.\.br\ ? \.br\ A change in the shape and feel of your breast.\.br\ ? \.br\ Scar tissue that feels hard to the touch in the area where the lump was removed.\.br\ Follow these instructions at home:\.br\ Medicines\.br\ ? \.br\ Take noou-ybg-dhdatfz and prescription medicines only as told by your health care provider.\.br\ ? \.br\ If you were prescribed an antibiotic, take it as told by your health care provider. Do not stop taking the antibiotic even if you start to feel better.\.br\ ? \.br\ Ask your health care provider if the medicine prescribed to you:\.br\ ? \.br\ Requires you to avoid driving or using machinery.\.br\ ? \.br\ Can cause constipation. You may need to take these actions to prevent or treat constipation:\.br\ ? \.br\ Drink enough fluid to keep your urine pale yellow.\.br\ ? \.br\ Take qrml-mqc-xugiwkd or prescription medicines.\.br\ ? \.br\ Eat foods that are high in fiber, such as beans, whole grains, and fresh fruits and vegetables.\.br\ ? \.br\ Limit foods that are high in fat and processed sugars, such as fried or sweet foods.\.br\ Incision care\.br\ \.br\ \.br\ ? \.br\ Follow instructions from your health care provider about how to take care of your incision. Make sure you:\.br\ ? \.br\ Wash your hands with soap and water for at least 20 seconds before and after you change your bandage (dressing). If soap and water are not available, use hand motor grader operator.\.br\ ? \.br\ Change your dressing as told by your health care provider.\.br\ ? \.br\ Leave stitches (sutures), skin glue, or adhesive strips in place. These skin closures may need to stay in place for 2 weeks or longer. If adhesive strip edges start to loosen and curl up, you may trim the loose edges. Do not remove adhesive strips completely unless your health care provider tells you to do that.\.br\ ? \.br\ Check your incision area every day for signs of infection. Check for:\.br\ ? \.br\ More redness, swelling, or pain.\.br\ ? \.br\ Fluid or blood.\.br\ ? \.br\ Warmth.\.br\ ? \.br\ Pus or a bad smell.\.br\ ? \.br\ Keep your dressing clean and dry.\.br\ ? \.br\ If you were sent home with a surgical drain in place, follow instructions from your health care provider about emptying it.\.br\ Bathing\.br\ ? \.br\ Do not take baths, swim, or use a hot tub until your health care provider approves. Ask your health care provider if you may take showers. You may only be allowed to take sponge baths.\.br\ Activity\.br\ ? \.br\ Rest as told by your health care provider.\.br\ ? \.br\ Do not sit for a long time without moving. Get up to take short walks every 1?2 hours. This will improve blood flow and breathing. Ask for help if you feel weak or unsteady.\.br\ ? \.br\ Be careful to avoid any activities that could cause an injury to your arm on the side of your surgery.\.br\ ? \.br\ Do not lift anything that is heavier than 10 lb (4.5 kg), or the limit that you are told, until your health care provider says that it is safe. Avoid lifting with the arm that is on the side of your surgery.\.br\ ? \.br\ Do not carry heavy objects on your shoulder on the side of your surgery.\.br\ ? \.br\ Do exercises to keep your shoulder and arm from getting stiff and swollen. Talk with your health care provider about which exercises are safe for you.\.br\ ? \.br\ Return to your normal activities as told by your health care provider. Ask your health care provider what activities are safe for you.\.br\ General instructions\.br\ ? \.br\ Wear a supportive bra as told by your health care provider.\.br\ ? \.br\ Raise (elevate) your arm above the level of your heart while you are sitting or lying down.\.br\ ? \.br\ Do not wear tight jewelry on your arm, wrist, or fingers on the side of your surgery.\.br\ ? \.br\ Wear compression stockings as told by your health care provider. These stockings help to prevent blood clots and reduce swelling in your legs.\.br\ ? \.br\ If you had any lymph nodes removed during your procedure, be sure to tell all of your health care providers. It is important to share this information before you have certain procedures, such as blood tests or blood pressure measurements.\.br\ ? \.br\ Keep all follow-up visits.\.br\ ? \.br\ You may need to be screened for extra fluid around the lymph nodes and swelling in the breast and arm (lymphedema).\.br\ Contact a health care provider if:\.br\ ? \.br\ You develop a rash.\.br\ ? \.br\ You have a fever.\.br\ ? \.br\ Your pain worsens or pain medicine is not working.\.br\ ? \.br\ You have swelling, weakness, or numbness in your arm that does n [facility] Consent for Treatmenton 0 Consent for Treatment [id number]#[id number] Normal [facility] ED Emmie Aldridgeon 10-06-2023 [facility] Obstetrics and Gynecology Lumpectomy, Care After The following information offers guidance on how to care for yourself after your procedure. Your health care provider may also give you more specific instructions. If you have problems or questions, contact your health care provider. What can I expect after the procedure? After the procedure, it is common to have: ? Some pain or redness at the incision site. ? Breast swelling. ? Breast tenderness. ? Stiffness in your arm or shoulder. ? A change in the shape and feel of your breast. ? Scar tissue that feels hard to the touch in the area where the lump was removed. Follow these instructions at home: Medicines ? Take swui-pnl-plzsaji and prescription medicines only as told by your health care provider. ? If you were prescribed an antibiotic, take it as told by your health care provider. Do not stop taking the antibiotic even if you start to feel better. ? Ask your health care provider if the medicine prescribed to you: ? Requires you to avoid driving or using machinery. ? Can cause constipation. You may need to take these actions to prevent or treat constipation: ? Drink enough fluid to keep your urine pale yellow. ? Take lwmj-wts-rzhjqid or prescription medicines. ? Eat foods that are high in fiber, such as beans, whole grains, and fresh fruits and vegetables. ? Limit foods that are high in fat and processed sugars, such as fried or sweet foods. Incision care ? Follow instructions from your health care provider about how to take care of your incision. Make sure you: ? Wash your hands with soap and water for at least 20 seconds before and after you change your bandage (dressing). If soap and water are not available, use hand motor grader operator. ? Change your dressing as told by your health care provider. ? Leave stitches (sutures), skin glue, or adhesive strips in place. These skin closures may need to stay in place for 2 weeks or longer. If adhesive strip edges start to loosen and curl up, you may trim the loose edges. Do not remove adhesive strips completely unless your health care provider tells you to do that. ? Check your incision area every day for signs of infection. Check for: ? More redness, swelling, or pain. ? Fluid or blood. ? Warmth. ? Pus or a bad smell. ? Keep your dressing clean and dry. ? If you were sent home with a surgical drain in place, follow instructions from your health care provider about emptying it. Bathing ? Do not take baths, swim, or use a hot tub until your health care provider approves. Ask your health care provider if you may take showers. You may only be allowed to take sponge baths. Activity ? Rest as told by your health care provider. ? Do not sit for a long time without moving. Get up to take short walks every 1?2 hours. This will improve blood flow and breathing. Ask for help if you feel weak or unsteady. ? Be careful to avoid any activities that could cause an injury to your arm on the side of your surgery. ? Do not lift anything that is heavier than 10 lb (4.5 kg), or the limit that you are told, until your health care provider says that it is safe. Avoid lifting with the arm that is on the side of your surgery. ? Do not carry heavy objects on your shoulder on the side of your surgery. ? Do exercises to keep your shoulder and arm from getting stiff and swollen. Talk with your health care provider about which exercises are safe for you. ? Return to your normal activities as told by your health care provider. Ask your health care provider what activities are safe for you. General instructions ? Wear a supportive bra as told by your health care provider. ? Raise (elevate) your arm above the level of your heart while you are sitting or lying down. ? Do not wear tight jewelry on your arm, wrist, or fingers on the side of your surgery. ? Wear compression stockings as told by your health care provider. These stockings help to prevent blood clots and reduce swelling in your legs. ? If you had any lymph nodes removed during your procedure, be sure to tell all of your health care providers. It is important to share this information before you have certain procedures, such as blood tests or blood pressure measurements. ? Keep all follow-up visits. ? You may need to be screened for extra fluid around the lymph nodes and swelling in the breast and arm (lymphedema). Contact a health care provider if: ? You develop a rash. ? You have a fever. ? Your pain worsens or pain medicine is not working. ? You have swelling, weakness, or numbness in your arm that does not improve after a few weeks. ? You have new swelling in your breast. ? You have any of these signs of infection: ? More redness, swelling, or pain in your incision area. ? Fluid or blood coming from your incision. ? Warmth coming from the incision area. ? Pus or a bad smell coming from your in (more content not included)... Normal [facility] ED [facility] Obstetrics and Gynecology Lumpectomy A lumpectomy, sometimes called a partial mastectomy, is surgery to remove a cancerous tumor or mass (the lump) from a breast. It is a form of breast-conserving or breast-preservatio n surgery. This means that the cancerous tissue is removed but the breast remains intact. During a lumpectomy, the portion of the breast that contains the tumor is removed. Lymph nodes under your arm may also be removed. Lymph nodes are part of the body's disease-fighting system (immune system) and are usually the first place where breast cancer spreads. Tell a health care provider about: ? Any allergies you have. ? All medicines you are taking, including vitamins, herbs, eye drops, creams, and jrbs-fxf-adyrugb medicines. ? Any problems you or family members have had with anesthetic medicines. ? Any bleeding problems you have. ? Any surgeries you have had. ? Any medical conditions you have. ? Whether you are or may be . What are the risks? Generally, this is a safe procedure. However, problems may occur, including: ? Bleeding. ? Infection. ? Allergic reaction to medicines. ? Pain, swelling, weakness, or numbness in the arm on the side of your surgery. ? Temporary swelling. ? Change in the shape of the breast, especially if a large portion is removed. ? Scar tissue that forms at the surgical site and feels hard to the touch. ? Blood clots. What happens before the procedure? When to stop eating and drinking Follow instructions from your health care provider about what you may eat and drink. These may include: ? 8 hours before your procedure ? Stop eating most foods. Do not eat meat, fried foods, or fatty foods. ? Eat only light foods, such as toast or crackers. ? All liquids are okay except energy drinks and alcohol. ? 6 hours before your procedure ? Stop eating. ? Drink only clear liquids, such as water, clear fruit juice, black coffee, plain tea, and sports drinks. ? Do not drink energy drinks or alcohol. ? 2 hours before your procedure ? Stop drinking all liquids. ? You may be allowed to take medicines with small sips of water. If you do not follow your health care provider's instructions, your procedure may be delayed or canceled. Medicines Ask your health care provider about: ? Changing or stopping your regular medicines. These include any diabetes medicines or blood thinners you take. ? Taking medicines such as aspirin and ibuprofen. These medicines can thin your blood. Do not take them unless your health care provider tells you to. ? Taking ssml-vgs-msazfod medicines, vitamins, herbs, and supplements. Surgery safety ? Ask your health care provider how your surgery site will be marked. ? A procedure may be done to locate and hayder the tumor area in the breast (localization). This will guide the surgeon to where the incision will be made. This may be done with: ? Imaging, such as a mammogram, ultrasound, or MRI. ? Insertion of a small wire, clip, or seed, or an implant that will reflect a radar signal. ? Also, ask what steps will be taken to help prevent infection. These may include: ? Washing skin with a germ-killing soap. ? Taking antibiotic medicine. General instructions ? You may have screening tests or exams to get normal measurements of your arm, also called baseline measurements. These can be compared to measurements done after surgery to monitor for swelling (lymphedema) that can develop after having lymph nodes removed. ? If you will be going home right after the procedure, plan to have a responsible adult: ? Take you home from the hospital or clinic. You will not be allowed to drive. ? Care for you for the time you are told. What happens during the procedure? ? An IV will be inserted into one of your veins. ? You may be given: ? A sedative. This helps you relax. ? Anesthesia. This will: ? Numb certain areas of your body. ? Make you fall asleep for surgery. ? An electric scalpel will be used to reduce bleeding (electrocautery knife). A curved incision that follows the natural curve of your breast will be made. ? The tumor will be removed along with some of the tissue around it. This will be sent to the lab for testing. Your health care provider may also remove lymph nodes at this time if needed. ? If the tumor is close to the muscles over your chest, some muscle tissue may also be removed. ? A small drain tube may be inserted into your breast area or armpit to collect fluid that may build up after surgery. This tube will be connected to a suction bulb on the outside of your body to remove the fluid. ? The incision will be closed with stitches (sutures). ? A bandage (dressing) may be placed over the incision. The procedure may vary among health care providers and hospitals. What happens after the procedure? ? Your blood pressure, heart rate, breathing rat (more content not included)... Normal [facility] Oncology Progress Noteon Oncology Progress Note Diagnoses 1. Invasive ductal carcinoma of right breast (C50.311: Malignant neoplasm of lower-inner quadrant of right female breast) 2. Osteopenia (M85.80: Other specified disorders of bone density and structure, unspecified site) Oncological History/ROS/PE/Ass essment and Plan Chief Complaint Breast CA Pt states her L breast nipple is becoming inverted, but her CA is in R breast. History of Present Illness 67 year old white female with history of schizophrenia, hypothyroidism, sleep apnea, osteoporosis, HTN and hyperlipidemia who has family history of mom with breast cancer, she was referred to our oncology clinic for that with new diagnosis of invasive ductal carcinoma with DCIS as well of the right breast at 4 o'clock position. Patient was found to have BI-RADS 4 suspicious mass at 4:00 of her right breast on a screening mammogram done on 04/11/2023. She underwent a biopsy on 05/05/2023 but it was consistent with benign tissue at that time. She had diagnostic mammogram and ultrasound done in May 2023 which revealed suspicious BI-RADS 4 6 to 8 mm lesion at 4 o'clock position recommend a biopsy. She underwent another biopsy on July 28, 2023 which this time revealed invasive ductal carcinoma grade 1 with DCIS and without LCIS. ER/CT were positive. 90-100% positive and CT is 80 to 90% positive with HER2 is negative with 1+ low. Patient was referred to our oncology clinic by her primary care nurse practitioner Keya Nieves for further management of the new right breast cancer. Right breast path report 07/28/23: Right breast mass Right breast mass at 3-4 o'clock stereotactic biopsy: Invasive ductal carcinoma, not otherwise specified type, with minor lobular features. Histologic type: Invasive carcinoma of no special type (ductal) with minor lobular features. Glandular (Acinar)/tubular differentiation: Score 2. Nuclear pleomorphism: Score 1 Mitotic rate: Score 1 Overall grade: Grade 1 Largest invasive focus in this limited biopsy sample: At least 3.5 mm. Ductal carcinoma in situ: Present Ydx-ow-alcbqll patterns: Solid Nuclear grade: Grade 1-2 intermediate Necrosis: Not identified Lobular carcinoma in situ: Not identified Lymphatic and or vascular invasion: Not identified. Microcalcification : Not identified. ER +91 to 100%. CT +81 to 90%. HER2 HERLINDA negative 1+ low Patient states that she did not feel any breast masses but she is concerned about the left breast as she has new nipple inversion for the last 2 weeks that she never had before. She denies any nipple bleeding or nipple discharge from any of the breast and denies any enlarged lymph nodes in the axillary regions bilaterally. All other systems were reviewed and are negative. 10/06/23: She was referred to Dr. Garcia from general surgery and-and the plan is to do right breast lumpectomy on 10/22/2023. The left breast diagnostic Mammogram and ultrasound came back BI-RADS 2 benign findings with stable left breast size and overall fibroglandular configuration with nodular parenchymal pattern. Stable inversion of the nipple. No focal mass. Borderline dilatation of a single duct measuring 1.7 x 2.5 mm no intraluminal mass. Recommendation is to repeat in 12 months. -Her right breast biopsy 21 gene Oncotype D recurrence score came back low 10, therefore the risk for recurrence with tamoxifen or endocrine therapy alone if there are no lymph nodes involvement is low 2% or less and chemo benefit is less than 3%. There is no chemo benefit also if there are 1-3 micrometastatic or metastatic lymph nodes. If there is 4 or more risk of recurrence at 9 years would be 40%. Patient is scheduled for surgery on 10/22/2023. Surgical path will need to be reviewed to decide the need for chemo as adjuvant treatment before adjuvant radiation or not. She will need to be referred to right eventually after her surgery if the chemo is planned. ALSO she need adjuvant endocrine therapy for 5-10 RTC in 5 weeks for results of surgical path and final plan of care. Review of Systems General: Patient denied fevers or headaches or dizziness. Lymphatic: No enlarged lymphadenopathy. Cardiovascular: Patient denied CP, SOB or leg edema. Respiratory: no cough or SOB or hemoptysis. Breasts: Positive for left nipple inversion since mid August 2023. Patient did not feel any right breast masses. GI: No nausea or vomiting or diarrhea or constipation or rectal bleeding or emesis or melena. : no gross hematuria or dysuria or frequency currently. Extremities: No edema of the lower extremities. Hematological: No focal masses anywhere and no easy bruising or bleeding tendency. Musculoskeletal: No deformities of the joints or the spine. Neurological: no vision changes or weakness or sensory changes. Physical Exam ECOG PS 1. General: alert, no acute distress HENMT: Normocephalic, atraumatic. Neck: supple and no LAP or thyromegaly. Heart: regular rate and rhythm, No murmurs Lungs: CTA, respirations non labored. (more content not included)... Normal [facility] Outside Labson 10-06-2023 Outside Labs [id number]#1.00TIFF Normal [facility] Reference Lab Reporton 10-05 Reference Lab Report [id number]#1.00TIFF Normal [facility] Outside Radiologyon 09-16-19 24 Outside Radiology [id number]#1.00TIFF Normal [facility] Outside Radiologyon 09-15-19 24 Outside Radiology [id number]#1.00TIFF Normal [facility] Outside Radiology [id number]#1.00TIFF Normal [facility] Consenton 09-10-2023 Consent [id number]#1.00TIFF Normal [facility] Outside Mammographyon 2023 Outside Mammography [id number]#1.00TIFF Normal [facility] Outside Radiologyon 09-10-19 24 Outside Radiology [id number]#1.00TIFF Normal [facility] RAD - Ultrasound Reporton RAD - Ultrasound Report [id number]#1.00TIFF [facility] Consent for Procedure/Surger yon 09-04-2023 Consent for Procedure/Surgery [id number]#1.00TIFF Normal [facility] Consent for Procedure/Surgery [id number]#1.00TIFF [facility] Ambulatory Visit Summaryon 0 09-03-2023 Ambulatory Visit Summary ALYSEMARLEY OGDEN :1955 Visit Date:09/03/2023 Ambulatory Visit Instructions Your Diagnosis Malignant neoplasm of lower-inner quadrant of right female breast Your Care Team Attending Physician - RADHA ROEPR, Milo Soto Primary Care Physician - Keya Lucas This Is Your Medications List Contact prescribing physician if questions or concerns Misc Prescription (Handicap Placard) acetaminophen alendronate (Fosamax 70 mg Tab) ergocalciferol (Vitamin D 50,000 intl units (1.25 mg) oral capsule) haloperidol (haloperidol 5 mg Tab) levothyroxine (levothyroxine 50 mcg (0.05 mg) Tab) quetiapine (quetiapine 50 mg oral tablet) senna (senna 8.6 mg Tab) Procedures Performed Biopsy of breast (06/2023), Biopsy of breast (05/2023), Cataract (06/02/2019), Colonoscopy (01/2019), CEIOL - Cataract extraction and insertion of intraocular lens (04/28/2017), Biopsy of breast, Tonsillectomy and adenoidectomy. Discharge Vitals Heart Rate (Peripheral) 72 Respiratory Rate 16 Blood Pressure 120/76 Height 152 cm Height 60 in Weight 78.3 kg Weight 172.26 lb BMI 33.89 What to do next Scheduled Follow-Up Appointments Friday 10:00 AM EDT With: Thien ROPER, Deb Lopez Where: [facility] Friday 1:40 PM EDT With: Keya Lucas Where: [facility] Normal [address] [id number]- \.br\ Medications\.br\ What How Much When Why Instructions\.br\ Unchanged acetaminophen 500 Milligram Every 6 hours as needed for as needed for pain Contact prescribing physician if questions or concerns \.br\ Unchanged alendronate (Fosamax 70 mg Tab) 1 Tablets By Mouth Every 7 days Osteopenia Contact prescribing physician if questions or concerns \.br\ Unchanged ergocalciferol (Vitamin D 50,000 intl units (1.25 mg) oral capsule) 1 Capsules By Mouth Every week Fatigue Daytime somnolence Gasping for breath LISA (obstructive sleep apnea) Drooling BMI 33.0-33.9,adult Non-smoker Contact prescribing physician if questions or concerns \.br\ Unchanged haloperidol (haloperidol 5 mg Tab) 1 Tablets By Mouth 2 times a day changed to BID Contact prescribing physician if questions or concerns \.br\ Unchanged levothyroxine (levothyroxine 50 mcg (0.05 mg) Tab) 1 Tablets By Mouth Every day Contact prescribing physician if questions or concerns \.br\ Unchanged Misc Prescription (Handicap Placard) See instructions Annual visit for general adult medical examination without abnormal findings Anxiety disorder Major depression with psychotic features Fall 5 years Contact prescribing physician if questions or concerns \.br\ Unchanged quetiapine (quetiapine 50 mg oral tablet) 1 Tablets By Mouth Every day Contact prescribing physician if questions or concerns \.br\ Unchanged senna (senna 8.6 mg Tab) 1 Tablets By Mouth 2 times a day Contact prescribing physician if questions or concerns \.br\ Allergies\.br\ Keflex (rash)\.br\ penicillins (rash)\.br\ sulfamethoxazole (rash)\.br\ Problems\.br\ Ongoing - Any problem that you are currently receiving treatment for.\.br\ Anxiety disorder\.br\ BMI 33.0-33.9,adult\.br\ Fatigue\.br\ HTN (hypertension)\.br\ Hyperlipidemia, unspecified\.br\ Hypothyroid\.br\ Invasive ductal carcinoma of right breast\.br\ Inversion of left nipple\.br\ Loss of memory\.br\ Major depression with psychotic features\.br\ Obesity\.br\ LISA (obstructive sleep apnea)\.br\ Osteopenia\.br\ Schizophrenia\.br\ Vitamin D deficiency\.br\ Historical - Any problem that you are no longer receiving treatment for.\.br\ Depression\.br\ Hypothyroidism\.br\ IBS - Irritable bowel syndrome\.br\ Paranoid schizophrenia\.br\ Screening for hyperlipidemia\.br\ Wellness examination\.br\ Patient Survey\.br\ You may receive a survey via text or e-mail asking about your office visit. Please share your experience with us by completing your survey. We appreciate your feedback and thank you for choosing us for your care.\.br\ \.br\ [facility] Ambulatory Visit Summary ALYSEMARLEY OGDEN :1955 Visit Date:09/03/2023 Ambulatory Visit Instructions Your Diagnosis Malignant neoplasm of lower-inner quadrant of right female breast Your Care Team Attending Physician - RADHA ROPER, Milo Soto Primary Care Physician - Keya Lucas This Is Your Medications List Contact prescribing physician if questions or concerns Misc Prescription (Handicap Placard) acetaminophen alendronate (Fosamax 70 mg Tab) ergocalciferol (Vitamin D 50,000 intl units (1.25 mg) oral capsule) haloperidol (haloperidol 5 mg Tab) levothyroxine (levothyroxine 50 mcg (0.05 mg) Tab) quetiapine (quetiapine 50 mg oral tablet) senna (senna 8.6 mg Tab) Procedures Performed Biopsy of breast (06/2023), Biopsy of breast (05/2023), Cataract (06/02/2019), Colonoscopy (01/2019), CEIOL - Cataract extraction and insertion of intraocular lens (04/28/2017), Biopsy of breast, Tonsillectomy and adenoidectomy. Discharge Vitals Heart Rate (Peripheral) 72 Respiratory Rate 16 Blood Pressure 120/76 Height 152 cm Height 60 in Weight 78.3 kg Weight 172.26 lb BMI 33.89 What to do next Scheduled Follow-Up Appointments Friday 10:00 AM EDT With: Thien ROPER, Deb Lopez Where: [facility] Friday 1:40 PM EDT With: Keya Lucas Where: [facility] Normal [address] [id number] \.br\ Medications\.br\ What How Much When Why Instructions\.br\ Unchanged acetaminophen 500 Milligram Every 6 hours as needed for as needed for pain Contact prescribing physician if questions or concerns \.br\ Unchanged alendronate (Fosamax 70 mg Tab) 1 Tablets By Mouth Every 7 days Osteopenia Contact prescribing physician if questions or concerns \.br\ Unchanged ergocalciferol (Vitamin D 50,000 intl units (1.25 mg) oral capsule) 1 Capsules By Mouth Every week Fatigue Daytime somnolence Gasping for breath LISA (obstructive sleep apnea) Drooling BMI 33.0-33.9,adult Non-smoker Contact prescribing physician if questions or concerns \.br\ Unchanged haloperidol (haloperidol 5 mg Tab) 1 Tablets By Mouth 2 times a day changed to BID Contact prescribing physician if questions or concerns \.br\ Unchanged levothyroxine (levothyroxine 50 mcg (0.05 mg) Tab) 1 Tablets By Mouth Every day Contact prescribing physician if questions or concerns \.br\ Unchanged Misc Prescription (Handicap Placard) See instructions Annual visit for general adult medical examination without abnormal findings Anxiety disorder Major depression with psychotic features Fall 5 years Contact prescribing physician if questions or concerns \.br\ Unchanged quetiapine (quetiapine 50 mg oral tablet) 1 Tablets By Mouth Every day Contact prescribing physician if questions or concerns \.br\ Unchanged senna (senna 8.6 mg Tab) 1 Tablets By Mouth 2 times a day Contact prescribing physician if questions or concerns \.br\ Allergies\.br\ Keflex (rash)\.br\ penicillins (rash)\.br\ sulfamethoxazole (rash)\.br\ Problems\.br\ Ongoing - Any problem that you are currently receiving treatment for.\.br\ Anxiety disorder\.br\ BMI 33.0-33.9,adult\.br\ Fatigue\.br\ HTN (hypertension)\.br\ Hyperlipidemia, unspecified\.br\ Hypothyroid\.br\ Invasive ductal carcinoma of right breast\.br\ Inversion of left nipple\.br\ Loss of memory\.br\ Major depression with psychotic features\.br\ Obesity\.br\ LISA (obstructive sleep apnea)\.br\ Osteopenia\.br\ Schizophrenia\.br\ Vitamin D deficiency\.br\ Historical - Any problem that you are no longer receiving treatment for.\.br\ Depression\.br\ Hypothyroidism\.br\ IBS - Irritable bowel syndrome\.br\ Paranoid schizophrenia\.br\ Screening for hyperlipidemia\.br\ Wellness examination\.br\ Patient Survey\.br\ You may receive a survey via text or e-mail asking about your office visit. Please share your experience with us by completing your survey. We appreciate your feedback and thank you for choosing us for your care.\.br\ \.br\ [facility] Physician Orderon 09-02-2023 Physician Order [id number] Normal [facility] Ambulatory Visit Summaryon 0 09-01-2023 Ambulatory Visit Summary MARLEY OSBORN :1955 Visit Date:09/01/2023 Ambulatory Visit Instructions Your Diagnosis Invasive ductal carcinoma of right breast Your Care Team Attending Physician - Deb Neumann MD Primary Care Physician - Keya Lucas Referring Physician - Keya Lucas This Is Your Medications List Misc Prescription (Handicap Placard) acetaminophen alendronate (Fosamax 70 mg Tab) bisacodyl ergocalciferol (Vitamin D 50,000 intl units (1.25 mg) oral capsule) haloperidol (haloperidol 5 mg Tab) levothyroxine (levothyroxine 50 mcg (0.05 mg) Tab) quetiapine (quetiapine 50 mg oral tablet) senna (senna 8.6 mg Tab) Procedures Performed Cataract (06/02/2019), Colonoscopy (01/2019), CEIOL - Cataract extraction and insertion of intraocular lens (04/28/2017), Tonsillectomy and adenoidectomy. Discharge Vitals Heart Rate (Peripheral) 61 Respiratory Rate 16 Blood Pressure 121/79 Height 152.0 cm Weight 78.5 kg BMI 33.98 What to do next Scheduled Follow-Up Appointments Friday 1:40 PM EDT With: Keya Lucas Where: [facility] [address] [id number]- \.br\ Medications\.br\ What How Much When Why Instructions\.br\ Unchanged acetaminophen 500 Milligram Every 6 hours as needed for as needed for pain\.br\ Unchanged alendronate (Fosamax 70 mg Tab) 1 Tablets By Mouth Every 7 days Osteopenia\.br\ Unchanged bisacodyl 10 Milligram By rectum As needed for as needed for constipation\.br\ Unchanged ergocalciferol (Vitamin D 50,000 intl units (1.25 mg) oral capsule) 1 Capsules By Mouth Every week Fatigue Daytime somnolence Gasping for breath LISA (obstructive sleep apnea) Drooling BMI 33.0-33.9,adult Non-smoker\.br\ Unchanged haloperidol (haloperidol 5 mg Tab) 1 [...] Tablets By Mouth 2 times a day\.br\ Allergies\.br\ Keflex (rash)\.br\ amoxicillin (Rash)\.br\ penicillins (rash)\.br\ sulfamethoxazole (rash)\.br\ Problems\.br\ Ongoing - Any problem that you are currently receiving treatment for.\.br\ Anxiety disorder\.br\ Daytime somnolence\.br\ Drooling\.br\ Fatigue\.br\ Gasping for breath\.br\ HTN (hypertension)\.br\ Hyperlipidemia, unspecified\.br\ Hypothyroid\.br\ Invasive ductal carcinoma of right breast\.br\ Loss of memory\.br\ Major depression with psychotic features\.br\ LISA (obstructive sleep apnea)\.br\ Osteopenia\.br\ Schizophrenia\.br\ Spasm of muscle\.br\ Vitamin D deficiency\.br\ Wellness examination\.br\ Historical - Any problem that you are no longer receiving treatment for.\.br\ Depression\.br\ Hypothyroidism\.br\ IBS - Irritable bowel syndrome\.br\ Paranoid schizophrenia\.br\ Screening for hyperlipidemia\.br\ Patient Survey\.br\ You may receive a survey via text or e-mail asking about your office visit. Please share your experience with us by completing your survey. We appreciate your feedback and thank you for choosing us for your care.\.br\ Education Materials\.br\ Lumpectomy, Care After\.br\ The following information offers guidance on how to care for yourself after your procedure. Your health care provider may also give you more specific instructions. If you have problems or questions, contact your health care provider.\.br\ What can I expect after the procedure?\.br\ After the procedure, it is common to have:\.br\ ? \.br\ Some pain or redness at the incision site.\.br\ ? \.br\ Breast swelling.\.br\ ? \.br\ Breast tenderness.\.br\ ? \.br\ Stiffness in your arm or shoulder.\.br\ ? \.br\ A change in the shape and feel of your breast.\.br\ ? \.br\ Scar tissue that feels hard to the touch in the area where the lump was removed.\.br\ Follow these instructions at home:\.br\ Medicines\.br\ ? \.br\ Take canb-peo-xrsqaqt and prescription medicines only as told by your health care provider.\.br\ ? \.br\ If you were prescribed an antibiotic, take it as told by your health care provider. Do not stop taking the antibiotic even if you start to feel better.\.br\ ? \.br\ Ask your health care provider if the medicine prescribed to you:\.br\ ? \.br\ Requires you to avoid driving or using machinery.\.br\ ? \.br\ Can cause constipation. You may need to take these actions to prevent or treat constipation:\.br\ ? \.br\ Drink enough fluid to keep your urine pale yellow.\.br\ ? \.br\ Take rxht-zaz-xkxxpmb or prescription medicines.\.br\ ? \.br\ Eat foods that are high in fiber, such as beans, whole grains, and fresh fruits and vegetables.\.br\ ? \.br\ Limit foods that are high in fat and processed sugars, such as fried or sweet foods.\.br\ Incision care\.br\ \.br\ \.br\ ? \.br\ Follow instructions from your health care provider about how to take care of your incision. Make sure you:\.br\ ? \.br\ Wash your hands with soap and water for at least 20 seconds before and after you change your bandage (dressing). If soap and water are not available, use hand motor grader operator.\.br\ ? \.br\ Change your dressing as told by your health care provider.\.br\ ? \.br\ Leave stitches (sutures), skin glue, or adhesive strips in place. These skin closures may need to stay in place for 2 weeks or longer. If adhesive strip edges start to loosen and curl up, you may trim the loose edges. Do not remove adhesive strips completely unless your health care provider tells you to do that.\.br\ ? \.br\ Check your incision area every day for signs of infection. Check for:\.br\ ? \.br\ More redness, swelling, or pain.\.br\ ? \.br\ Fluid or blood.\.br\ ? \.br\ Warmth.\.br\ ? \.br\ Pus or a bad smell.\.br\ ? \.br\ Keep your dressing clean and dry.\.br\ ? \.br\ If you were sent home with a surgical drain in place, follow instructions from your health care provider about emptying it.\.br\ Bathing\.br\ ? \.br\ Do not take baths, swim, or use a hot tub until your health care provider approves. Ask your health care provider if you may take showers. You may only be allowed to take sponge baths.\.br\ Activity\.br\ ? \.br\ Rest as told by your health care provider.\.br\ ? \.br\ Do not sit for a long time without moving. Get up to take short walks every 1?2 hours. This will improve blood flow and breathing. Ask for help if you feel weak or unsteady.\.br\ ? \.br\ Be careful to avoid any activities that could cause an injury to your arm on the side of your surgery.\.br\ ? \.br\ Do not lift anything that is heavier than 10 lb (4.5 kg), or the limit that you are told, until your health care provider says that it is safe. Avoid lifting with the arm that is on the side of your surgery.\.br\ ? \.br\ Do not carry heavy objects on your shoulder on the side of your surgery.\.br\ ? \.br\ Do exercises to keep your shoulder and arm from getting stiff and swollen. Talk with your health care provider about which exercises are safe for you.\.br\ ? \.br\ Return to your normal activities as told by your health care provider. Ask your health care provider what activities are safe for you.\.br\ General instructions\.br\ ? \.br\ Wear a supportive bra as told by your health care provider.\.br\ ? \.br\ Raise (elevate) your arm above the level of your heart while you are sitting or lying down.\.br\ ? \.br\ Do not wear tight jewelry on your arm, wrist, or fingers on the side of your surgery.\.br\ ? \.br\ Wear compression stockings as told by your health care provider. These stockings help to prevent blood clots and reduce swelling in your legs.\.br\ ? \.br\ If you had any lymph nodes removed during your procedure, be sure to tell all of your health care providers. It is important to share this information before you have certain procedures, such as blood tests or blood pressure measurements.\.br\ ? \.br\ Keep all follow-up visits.\.br\ ? \.br\ You may need to be screened for extra fluid around the lymph nodes and swelling in the breast and arm (lymphedema).\.br\ Contact a health care provider if:\.br\ ? \.br\ You develop a rash.\.br\ ? \.br\ You have a fever.\.br\ ? \.br\ [facility] Consent for Treatmenton 04 Consent for Treatment [id number] Normal [facility] ED Pat Eduon 09-01-2023 ED [facility] Obstetrics and Gynecology Lumpectomy, Care After The following information offers guidance on how to care for yourself after your procedure. Your health care provider may also give you more specific instructions. If you have problems or questions, contact your health care provider. What can I expect after the procedure? After the procedure, it is common to have: ? Some pain or redness at the incision site. ? Breast swelling. ? Breast tenderness. ? Stiffness in your arm or shoulder. ? A change in the shape and feel of your breast. ? Scar tissue that feels hard to the touch in the area where the lump was removed. Follow these instructions at home: Medicines ? Take cmpp-tup-dfsvjgn and prescription medicines only as told by your health care provider. ? If you were prescribed an antibiotic, take it as told by your health care provider. Do not stop taking the antibiotic even if you start to feel better. ? Ask your health care provider if the medicine prescribed to you: ? Requires you to avoid driving or using machinery. ? Can cause constipation. You may need to take these actions to prevent or treat constipation: ? Drink enough fluid to keep your urine pale yellow. ? Take jlbw-wjc-intthzz or prescription medicines. ? Eat foods that are high in fiber, such as beans, whole grains, and fresh fruits and vegetables. ? Limit foods that are high in fat and processed sugars, such as fried or sweet foods. Incision care ? Follow instructions from your health care provider about how to take care of your incision. Make sure you: ? Wash your hands with soap and water for at least 20 seconds before and after you change your bandage (dressing). If soap and water are not available, use hand motor grader operator. ? Change your dressing as told by your health care provider. ? Leave stitches (sutures), skin glue, or adhesive strips in place. These skin closures may need to stay in place for 2 weeks or longer. If adhesive strip edges start to loosen and curl up, you may trim the loose edges. Do not remove adhesive strips completely unless your health care provider tells you to do that. ? Check your incision area every day for signs of infection. Check for: ? More redness, swelling, or pain. ? Fluid or blood. ? Warmth. ? Pus or a bad smell. ? Keep your dressing clean and dry. ? If you were sent home with a surgical drain in place, follow instructions from your health care provider about emptying it. Bathing ? Do not take baths, swim, or use a hot tub until your health care provider approves. Ask your health care provider if you may take showers. You may only be allowed to take sponge baths. Activity ? Rest as told by your health care provider. ? Do not sit for a long time without moving. Get up to take short walks every 1?2 hours. This will improve blood flow and breathing. Ask for help if you feel weak or unsteady. ? Be careful to avoid any activities that could cause an injury to your arm on the side of your surgery. ? Do not lift anything that is heavier than 10 lb (4.5 kg), or the limit that you are told, until your health care provider says that it is safe. Avoid lifting with the arm that is on the side of your surgery. ? Do not carry heavy objects on your shoulder on the side of your surgery. ? Do exercises to keep your shoulder and arm from getting stiff and swollen. Talk with your health care provider about which exercises are safe for you. ? Return to your normal activities as told by your health care provider. Ask your health care provider what activities are safe for you. General instructions ? Wear a supportive bra as told by your health care provider. ? Raise (elevate) your arm above the level of your heart while you are sitting or lying down. ? Do not wear tight jewelry on your arm, wrist, or fingers on the side of your surgery. ? Wear compression stockings as told by your health care provider. These stockings help to prevent blood clots and reduce swelling in your legs. ? If you had any lymph nodes removed during your procedure, be sure to tell all of your health care providers. It is important to share this information before you have certain procedures, such as blood tests or blood pressure measurements. ? Keep all follow-up visits. ? You may need to be screened for extra fluid around the lymph nodes and swelling in the breast and arm (lymphedema). Contact a health care provider if: ? You develop a rash. ? You have a fever. ? Your pain worsens or pain medicine is not working. ? You have swelling, weakness, or numbness in your arm that does not improve after a few weeks. ? You have new swelling in your breast. ? You have any of these signs of infection: ? More redness, swelling, or pain in your incision area. ? Fluid or blood coming from your incision. ? Warmth coming from the incision area. ? Pus or a bad smell coming from your in (more content not included)... Normal [facility] Obstetrics and Gynecology Lumpectomy A lumpectomy, sometimes called a partial mastectomy, is surgery to remove a cancerous tumor or mass (the lump) from a breast. It is a form of breast-conserving or breast-preservatio n surgery. This means that the cancerous tissue is removed but the breast remains intact. During a lumpectomy, the portion of the breast that contains the tumor is removed. Lymph nodes under your arm may also be removed. Lymph nodes are part of the body's disease-fighting system (immune system) and are usually the first place where breast cancer spreads. Tell a health care provider about: ? Any allergies you have. ? All medicines you are taking, including vitamins, herbs, eye drops, creams, and dccs-ezw-eswsxwh medicines. ? Any problems you or family members have had with anesthetic medicines. ? Any bleeding problems you have. ? Any surgeries you have had. ? Any medical conditions you have. ? Whether you are or may be . What are the risks? Generally, this is a safe procedure. However, problems may occur, including: ? Bleeding. ? Infection. ? Allergic reaction to medicines. ? Pain, swelling, weakness, or numbness in the arm on the side of your surgery. ? Temporary swelling. ? Change in the shape of the breast, especially if a large portion is removed. ? Scar tissue that forms at the surgical site and feels hard to the touch. ? Blood clots. What happens before the procedure? When to stop eating and drinking Follow instructions from your health care provider about what you may eat and drink. These may include: ? 8 hours before your procedure ? Stop eating most foods. Do not eat meat, fried foods, or fatty foods. ? Eat only light foods, such as toast or crackers. ? All liquids are okay except energy drinks and alcohol. ? 6 hours before your procedure ? Stop eating. ? Drink only clear liquids, such as water, clear fruit juice, black coffee, plain tea, and sports drinks. ? Do not drink energy drinks or alcohol. ? 2 hours before your procedure ? Stop drinking all liquids. ? You may be allowed to take medicines with small sips of water. If you do not follow your health care provider's instructions, your procedure may be delayed or canceled. Medicines Ask your health care provider about: ? Changing or stopping your regular medicines. These include any diabetes medicines or blood thinners you take. ? Taking medicines such as aspirin and ibuprofen. These medicines can thin your blood. Do not take them unless your health care provider tells you to. ? Taking vfoe-qhn-baspzzo medicines, vitamins, herbs, and supplements. Surgery safety ? Ask your health care provider how your surgery site will be marked. ? A procedure may be done to locate and hayder the tumor area in the breast (localization). This will guide the surgeon to where the incision will be made. This may be done with: ? Imaging, such as a mammogram, ultrasound, or MRI. ? Insertion of a small wire, clip, or seed, or an implant that will reflect a radar signal. ? Also, ask what steps will be taken to help prevent infection. These may include: ? Washing skin with a germ-killing soap. ? Taking antibiotic medicine. General instructions ? You may have screening tests or exams to get normal measurements of your arm, also called baseline measurements. These can be compared to measurements done after surgery to monitor for swelling (lymphedema) that can develop after having lymph nodes removed. ? If you will be going home right after the procedure, plan to have a responsible adult: ? Take you home from the hospital or clinic. You will not be allowed to drive. ? Care for you for the time you are told. What happens during the procedure? ? An IV will be inserted into one of your veins. ? You may be given: ? A sedative. This helps you relax. ? Anesthesia. This will: ? Numb certain areas of your body. ? Make you fall asleep for surgery. ? An electric scalpel will be used to reduce bleeding (electrocautery knife). A curved incision that follows the natural curve of your breast will be made. ? The tumor will be removed along with some of the tissue around it. This will be sent to the lab for testing. Your health care provider may also remove lymph nodes at this time if needed. ? If the tumor is close to the muscles over your chest, some muscle tissue may also be removed. ? A small drain tube may be inserted into your breast area or armpit to collect fluid that may build up after surgery. This tube will be connected to a suction bulb on the outside of your body to remove the fluid. ? The incision will be closed with stitches (sutures). ? A bandage (dressing) may be placed over the incision. The procedure may vary among health care providers and hospitals. What happens after the procedure? ? Your blood pressure, heart rate, breathing rat (more content not included)... Normal [facility] ONC - Otheron 09-01-2023 ONC - Other [id number] Normal [facility] Oncology Progress Noteon Oncology Progress Note Chief Complaint Breast CA Pt states her L breast nipple is becoming inverted, but her CA is in R breast. History of Present Illness 67 year old white female with history of schizophrenia, hypothyroidism, sleep apnea, osteoporosis, HTN and hyperlipidemia who has family history of mom with breast cancer, she was referred to our oncology clinic for that with new diagnosis of invasive ductal carcinoma with DCIS as well of the right breast at 4 o'clock position. Patient was found to have BI-RADS 4 suspicious mass at 4:00 of her right breast on a screening mammogram done on 04/11/2023. She underwent a biopsy on 05/05/2023 but it was consistent with benign tissue at that time. She had diagnostic mammogram and ultrasound done in May 2023 which revealed suspicious BI-RADS 4 6 to 8 mm lesion at 4 o'clock position recommend a biopsy. She underwent another biopsy on July 28, 2023 which this time revealed invasive ductal carcinoma grade 1 with DCIS and without LCIS. ER/CT were positive. 90-100% positive and CT is 80 to 90% positive with HER2 is negative with 1+ low. Patient was referred to our oncology clinic by her primary care nurse practitioner Keya Nieves for further management of the new right breast cancer. Right breast path report 07/28/23: Right breast mass Right breast mass at 3-4 o'clock stereotactic biopsy: Invasive ductal carcinoma, not otherwise specified type, with minor lobular features. Histologic type: Invasive carcinoma of no special type (ductal) with minor lobular features. Glandular (Acinar)/tubular differentiation: Score 2. Nuclear pleomorphism: Score 1 Mitotic rate: Score 1 Overall grade: Grade 1 Largest invasive focus in this limited biopsy sample: At least 3.5 mm. Ductal carcinoma in situ: Present Ruh-hl-gxddzus patterns: Solid Nuclear grade: Grade 1-2 intermediate Necrosis: Not identified Lobular carcinoma in situ: Not identified Lymphatic and or vascular invasion: Not identified. Microcalcification : Not identified. ER +91 to 100%. CT +81 to 90%. HER2 HERLINDA negative 1+ low Patient states that she did not feel any breast masses but she is concerned about the left breast as she has new nipple inversion for the last 2 weeks that she never had before. She denies any nipple bleeding or nipple discharge from any of the breast and denies any enlarged lymph nodes in the axillary regions bilaterally. All other systems were reviewed and are negative. Review of Systems General: Patient denied fevers or headaches or dizziness. Lymphatic: No enlarged lymphadenopathy. Cardiovascular: Patient denied CP, SOB or leg edema. Respiratory: no cough or SOB or hemoptysis. Breasts: Positive for left nipple inversion since mid August 2023. Patient did not feel any right breast masses. GI: No nausea or vomiting or diarrhea or constipation or rectal bleeding or emesis or melena. : no gross hematuria or dysuria or frequency currently. Extremities: No edema of the lower extremities. Hematological: No focal masses anywhere and no easy bruising or bleeding tendency. Musculoskeletal: No deformities of the joints or the spine. Neurological: no vision changes or weakness or sensory changes. Physical Exam ECOG PS 1. General: alert, no acute distress HENMT: Normocephalic, atraumatic. Neck: supple and no LAP or thyromegaly. Heart: regular rate and rhythm, No murmurs Lungs: CTA, respirations non labored. Breasts: Done with presence of Susanne and Deborah hospice case manager as chaperones. No masses I could feel in the right breast, right axillary and no masses i left breast or left axillary regions. here is left nipple deep inversion. Abdomen: Soft nontender nondistended without hepatosplenomegaly or masses clinically. Extremities: no deformity, no edema. Lymph system: Currently she has no lymphadenopathy in her cervical area subclavian area/axillary areas and inguinal areas bilaterally. Neurological: oriented x 4, LOC appropriate for age, CN II-XII intact, motor strength equal & normal bilaterally, sensation normal bilaterally, speech normal Skin: No rash. Psychiatric: Normal mood and interaction. Diagnoses 1. Invasive ductal carcinoma of right breast (C50.911: Malignant neoplasm of unspecified site of right female breast) at 4 O'clock of the right breast with DCIS and no LCIS. ER positive 90-100%, CT positive 80-90. - Need referral to surgery for lumpectomy. Will see if there is enough tissue form the biopsy to send for Oncotype DX score. 2. 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 PLAN: Referral to surgery for right breast IDC. Diagnostic US and mammogram of the left breast for new breast inversion. 21 gene Oncotype D score from the biopsy of the right breast if enough tissue is available. RTC in 3 weeks for results of above. Follow-up With When Contact Information Thien ROPER, JULIÁN Pelletier, ONC Additional Instructions: Referral to surgery for (more content not included)... Normal [facility] Pathology Noteon 08-19-2023 Pathology Note [id number] Normal [facility] Ambulatory Visit Summaryon 0 08-05-2023 Ambulatory Visit Summary MARLEY OSBORN :1955 Visit Date:08/05/2023 Ambulatory Visit Instructions Your Diagnosis Invasive ductal carcinoma of right breast BMI 33.0-33.9,adult Non-smoker Your Care Team Attending [...] and adenoidectomy. Discharge Vitals Heart Rate (Peripheral) 68 Respiratory Rate 18 Blood Pressure 110/76 Height 152.0 cm Height 60 in Weight 77.110 kg Weight 169.642 lb BMI 33.38 What to do next Scheduled Follow-Up Appointments Friday 1:40 PM EDT With: Keya Lucas Where: [facility] [place] Normal [address] [place], [place] [id number]- \.br\ Medications\.br\ What How Much When Why Instructions\.br\ Unchanged acetaminophen 500 Milligram Every 6 hours as needed for as needed for pain\.br\ Unchanged alendronate (Fosamax 70 mg Tab) 1 Tablets By Mouth Every 7 days Osteopenia\.br\ Unchanged bisacodyl 10 Milligram By rectum As needed for as needed for constipation\.br\ Unchanged ergocalciferol (Vitamin D 50,000 intl units (1.25 mg) oral capsule) 1 Capsules By Mouth Every week Fatigue Daytime somnolence Gasping for breath LISA (obstructive sleep apnea) Drooling BMI 33.0-33.9,adult Non-smoker\.br\ Unchanged haloperidol (haloperidol 5 mg Tab) 1 [...] Tablets By Mouth 2 times a day\.br\ Allergies\.br\ Keflex (rash)\.br\ penicillins (rash)\.br\ sulfamethoxazole (rash)\.br\ Problems\.br\ Ongoing - Any problem that you are currently receiving treatment for.\.br\ Anxiety disorder\.br\ Daytime somnolence\.br\ Drooling\.br\ Fatigue\.br\ Gasping for breath\.br\ HTN (hypertension)\.br\ Hyperlipidemia, unspecified\.br\ Hypothyroid\.br\ Invasive ductal carcinoma of right breast\.br\ Loss of memory\.br\ Major depression with psychotic features\.br\ LISA (obstructive sleep apnea)\.br\ Osteopenia\.br\ Schizophrenia\.br\ Spasm of muscle\.br\ Vitamin D deficiency\.br\ Wellness examination\.br\ Historical - Any problem that you are no longer receiving treatment for.\.br\ Depression\.br\ Hypothyroidism\.br\ IBS - Irritable bowel syndrome\.br\ Paranoid schizophrenia\.br\ Screening for hyperlipidemia\.br\ Patient Survey\.br\ You may receive a survey via text or e-mail asking about your office visit. Please share your experience with us by completing your survey. We appreciate your feedback and thank you for choosing us for your care.\.br\ Education Materials\.br\ Breast Cancer Tumor Analysis\.br\ Why am I having this test?\.br\ This test is used to learn more about your tumor after a breast cancer diagnosis. The test can also help determine the chances that your breast cancer will return after the tumor has been removed (recurrence).\.br\ What is being tested?\.br\ In this test, small pieces of your tumor are studied to learn about the cancer cells. The results will show:\.br\ ? \.br\ The amount of DNA in the cancer cells.\.br\ ? \.br\ How fast the cancer cells are growing (proliferationrate).\ .br\ ? \.br\ Whether certain hormone and protein receptor markers are present or absent.\.br\ ? \.br\ The gene pattern found in the cancer cells.\.br\ This information can help your health care provider decide the best way to treat the breast cancer.\.br\ What kind of sample is taken?\.br\ \.br\ A small piece of breast tissue, called a sample, is needed for this test. The sample might come from:\.br\ ? \.br\ The tissue that is removed and tested to diagnose breast cancer (biopsy).\.br\ ? \.br\ The tumor that is removed during surgery (lumpectomy or mastectomy).\.br\ How are the results reported?\.br\ Your test results will be reported as values.\.br\ ? \.br\ Some values suggest that the cancer has features that are better, or favorable. This might mean that certain treatments are likely to work better or that the cancer is less likely to return.\.br\ ? \.br\ Other values are not good, or are unfavorable. This means that the cancer will be less likely to respond to certain treatments or that the cancer is slightly more likely to come back (recur).\.br\ This type of test can be used to measure:\.br\ Estrogen receptors and progesterone receptors\.br\ Estrogen receptors (ER) and progesterone receptors (CT) are proteins that can be found on cancer cells. When the hormones estrogen and progesterone attach to ER or CT, they tell the cell to grow and divide.\.br\ ? \.br\ ER positive (ER+) or CT positive (CT+) means that the breast cancer cells have one or both of these receptors. Treatment will include medicines that lower hormone levels or keep them from attaching to the receptors.\.br\ ? \.br\ ER negative (ER-) or CT negative (CT-) means that the breast cancer does not have these receptors. Medicines that lower hormone levels or keep them from acting on the cancer cells do not help treat ER- or CT- breast cancers.\.br\ Human epidermal growth factor receptor 2 protein\.br\ Human epidermal growth factor receptor 2 (HER2) is a protein that helps cancer cells grow faster. Breast cancer cells with levels of HER2 that are higher than normal grow and spread faster than cancers without HER2. If the HER2 protein marker is found on breast cancer cells, targeted chemotherapy medicines may be used. A test called immunohistochemistry (IHC) is most often used to measure HER2.\.br\ ? \.br\ 0 to 1+ means that the HER2 level is normal. The tumor is HER2-negative.\.br\ ? \.br\ 2+ means that the HER2 status is unclear (equivocal). More testing with fluorescence in situ hybridization (FISH) will be done to try to get clearer results.\.br\ ? \.br\ FISH negative means that HER2 levels are normal. The tumor is HER2-negative.\.br\ ? \.br\ FISH positive means that HER2 levels are higher than normal. The tumor is HER2-positive.\.br\ ? \.br\ 3+ means that HER2 is higher than normal. The tumor is HER2-positive.\.br\ Gene expression profiling\.br\ Gene expression profiling looks at the pattern of different types of genes in the cancer cells. This is often used on early-stage breast cancers to help predict whether they are more likely to recur and if chemotherapy would help. How results are classified depends on the company that makes the test used. Usually, results are classified by risk:\.br\ ? \.br\ Low risk means that there is a low risk of recurrence and chemotherapy would likely not help.\.br\ ? \.br\ Intermediate risk means that there is a mid-level risk of recurrence.\.br\ ? \.br\ High risk means that there is an increased risk of recurrence and chemotherapy may help to reduce the risk.\.br\ You may have testing to look at the gene patterns of your breast cancer. Testing may help determine whether your cancer is likely to come back in the 5?10 years after treatment.\.br\ S-phase fraction\.br\ S-phase fraction measures the percentage of cells in the tissue sample that are actively dividing (cell division).\.br\ ? \.br\ Less than 5.5% suggests that cell growth is slower. This is a favorable finding.\.br\ ? \.br\ Greater than 5.5% suggests that cell growth is faster. This is unfavorable.\.br\ DNA ploidy\.br\ DNA ploidy measures the amount of DNA in the cancer cells. Knowing this helps predict how fast the cells in a tumor are growing. DNA ploidy can be reported as:\.br\ ? \.br\ Diploid, which means the cancer cells contain a normal amount of DNA. These types of cancer usually grow and spread (metastasize) more slowly. This is a favorable finding.\.br\ ? \.br\ Aneuploid, which means there is an abnormal amount of DNA. These types of cancer usually grow and spread faster and are more aggressive. This is an unfavorable finding.\.br\ DNA ploidy helps predict karan [facility] Family Medicine Office/Clini c Noteon 08-05-2023 Family Medicine Office/Clinic Note HPI Staff Marley is a 67 year old female presenting for follow up on test results Patient pathology notes from 05/05/23 and 07/29/23 History of Present Illness pt presents today to go over breast biopsy results Review of Systems PHQ Score Initial Depression Screen Score: 0 SCORE ROS - Provider Constitutional: no fever, no chills, no sweats, no fatigue Respiratory: no shortness of breath, no cough, no orthopnea, no wheezing. Cardiovascular: no chest pain, no palpitations, no edema. Neurologic: no headache, no dizziness, no numbness, no weakness. Physical Exam Vitals & Measurements HR: 68(Peripheral) RR: 18 BP: 110/76 SpO2: 96% HT: 60 in HT: 152.0 cm WT: 77.110 kg WT: 169.642 lb BMI: 33.38 General: alert, no acute distress ENMT: oral mucosa moist, no pharyngeal erythema or exudate Cardiovascular: regular rate and rhythm, normal peripheral perfusion Respiratory: Lungs CTA, respirations non labored Extremities: no deformity, no trauma Neurological: oriented x 4, LOC appropriate for age, CN II-XII intact, motor strength equal & normal bilaterally, speech normal Assessment/Plan 1. Invasive ductal carcinoma of right breast (C50.911: Malignant neoplasm of unspecified site of right female breast) pt presents with today to go over breast biopsy results. Discussed options of oncologist. would like to stay local if possible. will refer to Dr. Garcia. all questions answered. education on breast cancer handout provided. RTC as needed Ordered: [facility] [place] Internal Ambulatory Referral 2. BMI 33.0-33.9,adult (Z68.33: Body mass index [BMI] 33.0-33.9, adult) BMI education complete Ordered: [facility] [place] Internal Ambulatory Referral 3. Non-smoker (Z78.9: Other specified health status) continue not smoking Ordered: [facility] [place] Internal Ambulatory Referral Orders: levothyroxine, 50 mcg = 1 tab(s), Oral, Daily, # 90 tab(s), Refills(s) 1, [id number], 154.9, cm, 02/04/23 10:18:00 EDT, Height/Length Dosing, 75, kg, 02/04/23 10:18:00 EDT, Weight Dosing levothyroxine, 50 mcg = 1 tab(s), Oral, Daily, # 90 tab(s), Refills(s) 1, [id number], 152, cm, 06/24/23 13:38:00 EST, Height/Length Dosing, 77.3, kg, 06/24/23 13:38:00 EST, Weight Dosing Follow-up No qualifying data available Patient Education Breast Cancer Tumor Analysis Breast Cancer, Female Problem List/Past Medical History Ongoing Anxiety disorder Daytime somnolence Drooling Fatigue Gasping for breath HTN (hypertension) Hyperlipidemia, unspecified Hypothyroid Invasive ductal carcinoma of right breast Loss of memory Major depression with psychotic [...] 10 mg, Rectal, PRN Fosamax 70 mg Tab, 70 mg= 1 tab(s), Oral, q7day, 3 refills haloperidol 5 mg Tab, 5 mg= 1 tab(s), Oral, BID, 1 refills Handicap Placard, See Instructions levothyroxine 50 mcg (0.05 mg) Tab, 50 mcg= 1 tab(s), Oral, Daily, 1 refills quetiapine 50 mg oral tablet, 50 mg= 1 tab(s), Oral, Daily, 1 refills senna 8.6 mg Tab, 8.6 mg= 1 tab(s), Oral, BID, 5 refills Vitamin D 50,000 intl units (1.25 mg) oral capsule, [address]809 International_Unit = 1 cap(s), Oral, qWeek, 3 refills Allergies Keflex (rash) penicillins (rash) sulfamethoxazole (rash) Social History Alcohol - Denies Alcohol Use, 02/21/2023 Household alcohol concerns: No., 02/21/2023 Tobacco - Denies Tobacco Use, 02/21/2023 Never (less than 100 in lifetime) Tobacco Use:. Never Smokeless Tobacco Use:. Household tobacco concerns: No., 08/05/2023 Family History Dementia: Brother and Brother.Negative: Sister. Omayra Gehrig's disease: Sister. Immunizations Vaccine Date Status Comments SARS-CoV-2 (COVID-19) mRNAMUL.ORD![id number] 03/09/2022 Recorded 2022-08-09: TPV65 influenza virus vaccine, inactivated 02/14/2022 Recorded SARS-CoV-2 (COVID-19) mRNA-1273 vaccine 03/29/2021 Recorded 2022-08-09: TPV65 influenza virus vaccine, inactivated 01/27/2021 Recorded SARS-CoV-2 (COVID-19) mRNA-1273 vaccine 08/23/2020 Recorded SARS-CoV-2 (COVID-19) mRNA-1273 vaccine 07/27/2020 Recorded pneumococcal 13-valent vaccine 02/17/2020 Recorded influenza virus vaccine, inactivated 02/20/2019 Recorded influenza virus vaccine, inactivated 03/31/2018 Recorded Normal [facility] Comment on above: Result Comment: Elec tronically Signed By: Keya Lucas\.jacobo\Date and Time Signed: 08/05/23 14:01 EST Pathology Noteon 08-05-2023 Pathology Note [id number]#1.00TIFF Normal [facility] Patient Educationon 08-05-19 Patient Education Obstetrics and Gynecology Breast Cancer Tumor Analysis Why am I having this test? This test is used to learn more about your tumor after a breast cancer diagnosis. The test can also help determine the chances that your breast cancer will return after the tumor has been removed (recurrence). What is being tested? In this test, small pieces of your tumor are studied to learn about the cancer cells. The results will show: ? The amount of DNA in the cancer cells. ? How fast the cancer cells are growing (proliferationrate ). ? Whether certain hormone and protein receptor markers are present or absent. ? The gene pattern found in the cancer cells. This information can help your health care provider decide the best way to treat the breast cancer. What kind of sample is taken? A small piece of breast tissue, called a sample, is needed for this test. The sample might come from: ? The tissue that is removed and tested to diagnose breast cancer (biopsy). ? The tumor that is removed during surgery (lumpectomy or mastectomy). How are the results reported? Your test results will be reported as values. ? Some values suggest that the cancer has features that are better, or favorable. This might mean that certain treatments are likely to work better or that the cancer is less likely to return. ? Other values are not good, or are unfavorable. This means that the cancer will be less likely to respond to certain treatments or that the cancer is slightly more likely to come back (recur). This type of test can be used to measure: Estrogen receptors and progesterone receptors Estrogen receptors (ER) and progesterone receptors (CT) are proteins that can be found on cancer cells. When the hormones estrogen and progesterone attach to ER or CT, they tell the cell to grow and divide. ? ER positive (ER+) or CT positive (CT+) means that the breast cancer cells have one or both of these receptors. Treatment will include medicines that lower hormone levels or keep them from attaching to the receptors. ? ER negative (ER-) or CT negative (CT-) means that the breast cancer does not have these receptors. Medicines that lower hormone levels or keep them from acting on the cancer cells do not help treat ER- or CT- breast cancers. Human epidermal growth factor receptor 2 protein Human epidermal growth factor receptor 2 (HER2) is a protein that helps cancer cells grow faster. Breast cancer cells with levels of HER2 that are higher than normal grow and spread faster than cancers without HER2. If the HER2 protein marker is found on breast cancer cells, targeted chemotherapy medicines may be used. A test called immunohistochemist ry (IHC) is most often used to measure HER2. ? 0 to 1+ means that the HER2 level is normal. The tumor is HER2-negative. ? 2+ means that the HER2 status is unclear (equivocal). More testing with fluorescence in situ hybridization (FISH) will be done to try to get clearer results. ? FISH negative means that HER2 levels are normal. The tumor is HER2-negative. ? FISH positive means that HER2 levels are higher than normal. The tumor is HER2-positive. ? 3+ means that HER2 is higher than normal. The tumor is HER2-positive. Gene expression profiling Gene expression profiling looks at the pattern of different types of genes in the cancer cells. This is often used on early-stage breast cancers to help predict whether they are more likely to recur and if chemotherapy would help. How results are classified depends on the company that makes the test used. Usually, results are classified by risk: ? Low risk means that there is a low risk of recurrence and chemotherapy would likely not help. ? Intermediate risk means that there is a mid-level risk of recurrence. ? High risk means that there is an increased risk of recurrence and chemotherapy may help to reduce the risk. You may have testing to look at the gene patterns of your breast cancer. Testing may help determine whether your cancer is likely to come back in the 5?10 years after treatment. S-phase fraction S-phase fraction measures the percentage of cells in the tissue sample that are actively dividing (cell division). ? Less than 5.5% suggests that cell growth is slower. This is a favorable finding. ? Greater than 5.5% suggests that cell growth is faster. This is unfavorable. DNA ploidy DNA ploidy measures the amount of DNA in the cancer cells. Knowing this helps predict how fast the cells in a tumor are growing. DNA ploidy can be reported as: ? Diploid, which means the cancer cells contain a normal amount of DNA. These types of cancer usually grow and spread (metastasize) more slowly. This is a favorable finding. ? Aneuploid, which means there is an abnormal amount of DNA. These types of cancer usually grow and spread faster and are more aggressive. This is an unfavorable finding. DNA ploidy helps predict long-term outcomes, but it does not help in making tr (more content not included)... Normal [facility] Outside Mammographyon 2023 Outside Mammography [id number]#1.00TIFF Normal [facility] Outside Mammography [id number]#1.00TIFF Normal [facility] Karan 07-28-2023 L Specimen: [id number] Received: 07/29/23 Status: EL Rojas Num: [id number] Spec Type: Surgical Subm Dr: Kayley Weiss MD Tissues: A BREAST CORE NO CALCS (RT BREAST 3-4:00) Procedures: HE/4, Gross/Micro L4, E CADHERIN, ER, CT Age/ Patient Sex Location Account Attending Physician Marley Osborn 67/F [facility] [id number] Kayley Weiss MD SPEC NUM: [id number] RECD: 07/29/23 STATUS: EL ROJAS NUM: [id number] PONCE: 07/28/23 DR: Kayley Weiss MD ENTERED: 07/29/[address]: Ying,Lab Keya Nieves [employer] INST[employer]ER SPEC TYPE: Surgical DEPT: MOE XIONG ORDERED: HE/4, Gross/Micro L4, E CADHERIN, ER, CT ORDERED: HE/4, Gross/Micro L4, E CADHERIN, ER, CT Supplemental Report Addendum 1 Entered: 08/08/23 Supplemental for findings of HER2 by immunohistochemist farshad from [employer]: -Negative/low -Score: 1+ Addendum Signed (signature on file) Vijay Chi MD 08/08/23 2024 -- Pathological Diagnosis Right breast mass at 3?4:00, stereotactic biopsy: - Invasive ductal carcinoma, NOS type, with minor lobular features - Please also see cancer summary and synoptic report below [facility]ER CASE SUMMARY SPECIMEN Procedure: Needle biopsy -- Specimen: [id number] Received: 07/29/23 Status: EL Rojas Num: [id number] Spec Type: Surgical Subm Dr: Kayley Weiss MD Tissues: A BREAST CORE NO CALCS (RT BREAST 3-4:00) Procedures: HE/4, Gross/Micro L4, E CADHERIN, ER, CT -- Patient: Marley Osborn [id number] (Continued) -- Specimen: [id number] Received: 07/29/23 (Continued) Pathological Diagnosis (Continued) Signed (signatu re on file) Vijay Chi MD 07/31/23 1328 -- Specimen: [id number] Received: 07/29/23 Status: EL Rojas Num: [id number] Spec Type: Surgical Subm Dr: Kayley Weiss MD Tissues: A BREAST CORE NO CALCS (RT BREAST 3-4:00) Procedures: HE/4, Gross/Micro L4, E CADHERIN, ER, CT -- Patient: Marley Osborn [id number] (Continued) -- Specimen: [id number] Received: 07/29/23 (Continued) Pathological Diagnosis (Continued) Specimen Laterality: Right TUMOR Histologic Type: Invasive carcinoma of no special type (ductal), with minor lobular features Glandular (Acinar) / Tubular Differentiation: Score 2 Nuclear Pleomorphism: Score 1 Mitotic Rate: Score 1 Overall Grade: Grade 1 (scores of 3, 4 or 5) Largest Invasive Focus in this Limited Biopsy Sample: At least - 3.5 mm Ductal Carcinoma In Situ (DCIS): Present Architectural Patterns: Solid Nuclear Grade: Grade I-II (intermediate) Necrosis: Not identified Lobular Carcinoma In Situ (LCIS): Not identified Lymphatic and / or Vascular Invasion: Not identified Microcalcification s: Not identified Tumor biomarkers: Test(s) Performed: Estrogen Receptor (ER) Status: Positive (greater than 10% of cells demonstrate nuclear positivity) Percentage of Cells with Nuclear Positivity: 91-100% Average Intensity of Staining: Moderate Progesterone Receptor (PgR) Status: Positive Percentage of Cells with Nuclear Positivity: 81-90% Average Intensity of Staining: Moderate HER2 by Immunohistochemist ry: Pending testing at the reference laboratory Cold Ischemia and Fixation Times: Meet requirements specified in latest version of the ASCO / CAP Guidelines Comment(s):- -E-cadherin immunostain also showing findings supporting the above interpretation -Immuno controls are appropriate Clinical Information Right breast mass at 3-4:00 -- Specimen: [id number] Received: 07/29/23 Status: EL Cheemawilliam Num: [id number] Spec Type: Surgical Subm Dr: Kayley Weiss MD Tissues: A BREAST CORE NO CALCS (RT BREAST 3-4:00) Procedures: HE/4, Gross/Micro L4, E CADHERIN, ER, CT -- Patient: Marley Osborn [id number] (Continued) -- Specimen: [id number] Received: 07/29/23 (Continued) Signed (signatu re on file) Vijay Chi MD 07/31/23 1328 (more content not included)... Normal [facility] Physician Orderon 07-23-2023 Physician Order [id number]#1.00TIFF Normal [facility] Physician Orderon 07-04-2023 Physician Order [id number]#1.00TIFF Normal [facility] Sleep Studieson 07-04-2023 Sleep Studies [id number]#1.00TIFF [facility] Ambulatory Visit Summaryon 0 06-24-2023 Ambulatory Visit Summary IRENA MARLEY K :1955 Visit Date:06/24/2023 Ambulatory Visit Instructions Your [...] 1:40 PM EDT With: Keya Lucas Where: [facility] [facility] Normal [address] [place] [address]- \.br\ Medications\.br\ What How Much When Why Instructions\.br\ New ergocalciferol (Vitamin D 50,000 intl units (1.25 mg) oral capsule) 1 Capsules By Mouth Every week Fatigue Daytime somnolence Gasping for breath LISA (obstructive sleep apnea) Drooling BMI 33.0-33.9,adult Non-smoker Refills: 3 Pickup at [facility]/pharmacy #[id number]\.br\ Unchanged acetaminophen 500 Milligram Every 6 hours [...] Mouth 2 times a day\.br\ Pharmacy Information\.br\ [facility]/pharmacy #[id number]: [address], [place] [phone]\.br\ Allergies\.br\ Keflex (rash)\.br\ penicillins (rash)\.br\ sulfamethoxazole (rash)\.br\ Problems\.br\ Ongoing - Any problem that you are currently receiving treatment for.\.br\ Anxiety disorder\.br\ Daytime somnolence\.br\ Drooling\.br\ Fatigue\.br\ Gasping for breath\.br\ HTN (hypertension)\.br\ Hyperlipidemia, unspecified\.br\ Hypothyroid\.br\ Loss of memory\.br\ Major depression with psychotic features\.br\ LISA (obstructive sleep apnea)\.br\ Osteopenia\.br\ Schizophrenia\.br\ Spasm of muscle\.br\ Vitamin D deficiency\.br\ Wellness examination\.br\ Historical - Any problem that you are no longer receiving treatment for.\.br\ Depression\.br\ Hypothyroidism\.br\ IBS - Irritable bowel syndrome\.br\ Paranoid schizophrenia\.br\ Screening for hyperlipidemia\.br\ Patient Survey\.br\ You may receive a survey via text or e-mail asking about your office visit. Please share your experience with us by completing your survey. We appreciate your feedback and thank you for choosing us for your care.\.br\ \.br\ [facility] Medicine Office/Clini c Noteon 06-24-2023 [facility] Medicine Office/Clinic Note HPI Staff Marley is [...] pt will have sleep study done at [facility]. RTC 6 months unless needed before that. Ordered: ergocalciferol, 50,000 International_Unit = 1 cap(s), Oral, qWeek, # 4 cap(s), Refills(s) 3, Pharmacy: [facility]/pharmacy #[id number], 152, cm, 06/24/23 13:38:00 EST, Height/Length Dosing, 77.3, kg, 06/24/23 13:38:00 EST, Weight Dosing 2. Daytime somnolence (R40.0: Somnolence) pt c/o worsening day time sleepiness. we decreased a small portion of her psych meds at last visit. but she is still having the issues. will send order to [facility] for sleep study Ordered: ergocalciferol, 50,000 International_Unit = 1 cap(s), Oral, qWeek, # 4 cap(s), Refills(s) 3, Pharmacy: [facility]/pharmacy #[id number], 152, cm, 06/24/23 13:38:00 EST, Height/Length Dosing, 77.3, kg, 06/24/23 13:38:00 EST, Weight Dosing 3. Gasping for breath (R06.89: Other abnormalities of breathing) wakes up gasping for air when sleeping Ordered: ergocalciferol, 50,000 International_Unit = 1 cap(s), Oral, qWeek, # 4 cap(s), Refills(s) 3, Pharmacy: [facility]/pharmacy #[id number], 152, cm, 06/24/23 13:38:00 EST, Height/Length Dosing, 77.3, kg, 06/24/23 13:38:00 EST, Weight Dosing 4. LISA (obstructive sleep apnea) (G47.33: Obstructive sleep apnea (adult) (pediatric)) pt states she had testing about 10 years ago but refused to wear the mask so she never got a machine. Ordered: ergocalciferol, 50,000 International_Unit = 1 cap(s), Oral, qWeek, # 4 cap(s), Refills(s) 3, Pharmacy: [facility]/pharmacy #[id number], 152, cm, 06/24/23 13:38:00 EST, Height/Length Dosing, 77.3, kg, 06/24/23 13:38:00 EST, Weight Dosing 5. Drooling (K11.7: Disturbances of salivary secretion) pt still drooling even with decrease of haldol. educated pt that haldol causes drooling. pt verbalizes understanding Ordered: ergocalciferol, 50,000 International_Unit = 1 cap(s), Oral, qWeek, # 4 cap(s), Refills(s) 3, [id number], 152, cm, 06/24/23 13:38:00 EST, Height/Length Dosing, 77.3, kg, 06/24/23 13:38:00 EST, Weight Dosing 6. Vitamin D deficiency (E55.9: Vitamin D deficiency, unspecified) vitamin d rx sent to pharmacy 7. BMI 33.0-33.9,adult (Z68.33: Body mass index [BMI] 33.0-33.9, adult) BMI education complete Ordered: ergocalciferol, 50,000 International_Unit = 1 cap(s), Oral, qWeek, # 4 cap(s), Refills(s) 3, Pharmacy: [facility]/pharmacy #[id number], 152, cm, 06/24/23 13:38:00 EST, Height/Length Dosing, 77.3, kg, 06/24/23 13:38:00 EST, Weight Dosing 8. Non-smoker (Z78.9: Other specified health status) continue not smoking Ordered: ergocalciferol, 50,000 International_Unit = 1 cap(s), Oral, qWeek, # 4 cap(s), Refills(s) 3, [id number], 152, cm, 06/24/23 13:38:00 EST, [...] mg Tab (more content not included)... Normal [facility] Comment on above: Result Comment: Elec tronically Signed By: Keya Lucas\.br\Date and Time Signed: 06/24/23 14:09 EST Physician Orderon 06-24-2023 Physician Order [id number] Normal [facility] T3 Freeon 06-13-2023 Free T3 [Mass/Vol] 2.4 pg/mL Invalid Interpretation Code 2.0-4.4 [facility] Comment on above: Result Comment: Perf ormed at: [facility] [address] [id number] PhD Nazanin Nolasco Performed By: #### 2 051959, 6658144, 5677717, 7615618, 9364654, 7763842, [id number], 96067267, 3170549 ####[facility] [address] [place] [address] Ambulatory Visit Summaryon 0 06-11-2023 Ambulatory Visit [...] EST With: Ezequiel MYLES, Keya Turner Where: [facility] [address] [place] [address]- \.br\ Medications\.br\ What How Much When Why Instructions\.br\ New senna (senna 8.6 mg Tab) 1 Tablets By Mouth 2 times a day Refills: 5 Pickup at [facility]/pharmacy #[id number]\.br\ Changed haloperidol (haloperidol 5 mg Tab) 1 [...] features Fall 5 years \.br\ Pharmacy Information\.br\ [facility]/pharmacy #[id number]: [address], [place] [phone]\.br\ Allergies\.br\ Keflex (rash)\.br\ penicillins (rash)\.br\ sulfamethoxazole (rash)\.br\ Problems\.br\ Ongoing - Any problem that you are currently receiving treatment for.\.br\ Anxiety disorder\.br\ Fatigue\.br\ HTN (hypertension)\.br\ Hyperlipidemia, unspecified\.br\ Hypothyroid\.br\ Loss of memory\.br\ Major depression with psychotic features\.br\ LISA (obstructive sleep apnea)\.br\ Osteopenia\.br\ Schizophrenia\.br\ Spasm of muscle\.br\ Wellness examination\.br\ Historical - Any problem that you are no longer receiving treatment for.\.br\ Depression\.br\ Hypothyroidism\.br\ IBS - Irritable bowel syndrome\.br\ Paranoid schizophrenia\.br\ Screening for hyperlipidemia\.br\ Patient Survey\.br\ You may receive a survey via text or e-mail asking about your office visit. Please share your experience with us by completing your survey. We appreciate your feedback and thank you for choosing us for your care.\.br\ \.br\ [facility] Auto Diffon 06-11-2023 Basophils/100 WBC (Bld) 0.6 % Normal 0.0-2.0 [facility] Comment on above: Order Comment: Order Added by Discern Expert. Performed By: #### 2 877277, 0202112, 4798165, 8490477, 5899072, 7233416, 084819460, 55777991, 1157530 ####[facility] [address] [place] [address] Basophils/Leukocyt es Auto (Bld) [Pure # fraction] 0.0 E9/L Normal 0.0-0.2 [facility] Comment on above: Order Comment: Order Added by Discern Expert. Performed By: #### 2 599013, 2409672, 0498596, 9608292, 8741697, 6467900, 542181682, 18104724, 2755430 ####[facility] [address] [place] [address] Eosinophils/100 WBC (Bld) 1.0 % Normal 0.0-8.0 [facility] Comment on above: Order Comment: Order Added by Discern Expert. Performed By: #### 2 486313, 8018268, 7973435, 0546480, 1265428, 4427051, 012002499, 83594442, 7856992 ####[facility] [address] [place] [address] Eosinophils/Leukoc ytes Auto (Bld) [Pure # fraction] 0.1 E9/L Normal 0.0-0.5 [facility] Comment on above: Order Comment: Order Added by Discern Expert. Performed By: #### 2 252778, 6945596, 1632692, 7886753, 6299366, 0034556, 744587353, 51923916, 4358875 ####[facility] [address] [place] [address] Lymphocytes/100 WBC (Bld) 22.6 % Normal 14.0-50.0 [facility] Comment on above: Order Comment: Order Added by Discern Expert. Performed By: #### 2 430175, 9995888, 1820133, 5369120, 2607093, 0171387, 285133728, 72738363, 6677871 ####[address] [place] [address] Lymphocytes/Leukoc ytes Auto (Bld) [Pure # fraction] 1.3 E9/L Normal 1.0-4.0 [facility] Comment on above: Order Comment: Order Added by Discern Expert. Performed By: #### 2 056883, 7337620, 3848129, 3907547, 1220919, 3102203, 876883524, 92530124, 0429525 ####[facility] [address] [place] [address] Monocytes/100 WBC (Bld) 5.5 % Normal 4.0-14.0 [facility] Comment on above: Order Comment: Order Added by Discern Expert. Performed By: #### 2 626736, 7541982, 5247028, 6338755, 3328277, 8477815, 766858597, 09982603, 0944410 ####[address] [place] [address] Monocytes/Leukocyt es Auto (Bld) [Pure # fraction] 0.3 E9/L Normal 0.2-1.0 [facility] Comment on above: Order Comment: Order Added by Discern Expert. Performed By: #### 2 204598, 1371088, 8294089, 0529837, 6194498, 6549371, 893594379, 23404796, 1415037 ####[facility] [address] [place] [address] Neutrophils/100 WBC (Bld) 70.3 % Normal 36.0-75.0 [facility] Comment on above: Order Comment: Order Added by Discern Expert. Performed By: #### 2 266058, 5987228, 0283400, 6349580, 9053380, 9538470, 975568613, 10589733, 8375184 ####[address] [place] [address] Neutrophils/Leukoc ytes Auto (Bld) [Pure # fraction] 4.2 E9/L Normal 2.0-7.5 [facility] Comment on above: Order Comment: Order Added by Discern Expert. Performed By: #### 2 986487, 3803677, 6551042, 5224183, 0517347, 4725737, 186170288, 87566492, 2528162 ####[address] [address] CBC w/ Auto Diffon 4 Erythrocyte distribution width (RBC) [Ratio] 13.9 % Normal 10.9-14.2 [facility] Comment on above: Performed By: #### 2 669536, 3550828, 8865459, 7286650, 5636860, 4987223, 069298855, 87008308, 0662315 ####[facility] [address] [place] [address] Hematocrit (Bld) [Volume fraction] 36.1 % Normal 34.0-46.0 [facility] Comment on above: Performed By: #### 2 158069, 6183104, 8938147, 6475521, 7327850, 5031023, 551892136, 11285842, 6769435 ####[address] [place] [address] Hemoglobin (Bld) [Mass/Vol] 12.0 g/dL Normal 12.0-16.0 [facility] Comment on above: Performed By: #### 2 581702, 6858550, 0903661, 8032459, 7405891, 2509578, 743019706, 01054895, 8394122 ####[facility] [address] [place] [address] MCH (RBC) [Entitic mass] 29.1 pg Normal 27.0-34.0 [facility] Comment on above: Performed By: #### 2 030060, 0402177, 8402690, 1210759, 4523169, 5102061, 583538244, 95633654, 6796670 ####[address] [place] [address] MCHC (RBC) [Mass/Vol] 33.1 g/dL Normal 31.4-36.0 [facility] Comment on above: Performed By: #### 2 804566, 9326703, 5435559, 9523756, 4346285, 1756466, 270780532, 99060270, 8912005 ####[address] [place] [address] MCV (RBC) [Entitic vol] 87.9 fL Normal 80.0-100.0 [facility] Comment on above: Performed By: #### 2 701691, 2322055, 7258518, 6759409, 3987449, 8847945, 788317298, 44568803, 0242723 ####[facility] [address] [place] [address] Platelet mean volume (Bld) [Entitic vol] 7.9 fL Normal 6.4-10.8 [facility] Comment on above: Performed By: #### 2 244651, 3967284, 9477842, 4386381, 5325999, 4523887, 956739307, 70965512, 6341779 ####[facility] [address] [place] [address] Platelets (Bld) [#/Vol] 231.0 E9/L Normal 150.0-500.0 [facility] Comment on above: Performed By: #### 2 113657, 4902616, 3509847, 1085918, 3836503, 8044580, 079107720, 02986398, 7430333 ####[facility] [address] [place] [address] RBC (Bld) [#/Vol] 4.1 E12/L Low 4.3-5.9 [facility] Comment on above: Performed By: #### 2 079155, 9321375, 1009921, 7249694, 3133419, 7985156, 734931570, 09338682, 0133730 ####[facility] [address] [place] [address] WBC corrected for nucl RBC Auto (Bld) [#/Vol] 5.9 E9/L Normal 4.0-11.0 [facility] Comment on above: Performed By: #### 2 129159, 0604615, 5867252, 7259485, 5721320, 7199965, 170242618, 91374522, 9473683 ####[facility] [address] [place] [address] CHEMISTRYOrdered By: SYSTEM SYSTEM on 06-11-2023 Albumin [Mass/Vol] 4.1 g/dL Normal 3.3 - 5.0 gm/dL R emisol Chem Albumin/Globulin [Mass ratio] 1.7 {ratio} Normal 1.1 - 2.2 Remisol Chem Alk Phos 99 [iU]/d High 21 - 98 Int._Unit/L Remis ol Chem ALT 14 [iU]/d Normal 6 - 46 Int._Unit/L Remiso l Chem Anion gap [Moles/Vol] 12 mmol/L Normal 6 - 16 mEq/L Remisol Chem AST 15 [iU]/d Normal 5 - 43 Int._Unit/L Remiso l Chem Bili Total 0.8 mg/dL Normal 0.0 - 1.1 mg/dL Remisol C hem Calcium [Mass/Vol] 9.5 mg/dL Normal 8.9 - 11.1 mg/dL Remisol Chem Chloride [Moles/Vol] 105 mmol/L Normal 101 - 111 mmol/L Remisol Chem Cholesterol [Mass/Vol] 219 mg/dL [...] Remisol Chem eGFR 49 mL/min/1.73 m2 Low >=59mL/min/1.73 m2 Remisol Chem Free T4 [Mass/Vol] 0.95 [...] 1.81 m[IU]/L Normal 0.34 - 5.60 mcIU/mL Rem isol Chem Urea nitrogen [Mass/Vol] 22 mg/dL High 5 - 21 mg/dL Remisol Chem Urea nitrogen/Creatinin e [Mass ratio] 18 mg/mg Normal 10 - 20 Remisol Chem Vitamin D 25 Hydroxy 17.1 ng/mL Low 30.0 - 100.0 ng/mL Remisol Chem CMPon 06-11-2023 Albumin [Mass/Vol] 4.1 g/dL Normal 3.3-5.0 [facility] Comment on above: Performed By: #### 2 534845, 3826616, 6906074, 1904593, 3426488, 9847667, 575376257, 67048940, 5409955 ####[facility] [address] [place] [address] Albumin/Globulin [Mass ratio] 1.7 {ratio} Normal 1.1-2.2 [facility] Comment on above: Performed By: #### 2 138592, 9010079, 5767266, 5667900, 2512079, 1561865, 802730515, 31392861, 5605720 ####[facility] [address] [place] [address] Alk Phos 99 Int._Unit/L High 21-98 [facility] Comment on above: Performed By: #### 2 247063, 8432273, 7776725, 4422613, 2154260, 4484154, 576663834, 69438406, 3686392 ####[facility] [address] [place] [address] ALT 14 Int._Unit/L Normal 6-46 [facility] Comment on above: Performed By: #### 2 249433, 8600605, 6165339, 7681149, 3054761, 3038981, 198815562, 99468101, 1467819 ####[facility] [address] [place] [address] Anion gap [Moles/Vol] 12 mmol/L Normal 6-16 [facility] Comment on above: Performed By: #### 2 978170, 3787751, 6257181, 7722547, 8980417, 5968876, 880198233, 31056428, 6868687 ####[facility] [address] [place] [address] AST 15 Int._Unit/L Normal 5-43 [facility] Comment on above: Performed By: #### 2 587611, 7880558, 3106521, 2075335, 9496417, 1182941, 642952265, 42409582, 4329747 ####[facility] [address] [place] [address] Bili Total 0.8 mg/dL Normal 0.0-1.1 [facility] Comment on above: Performed By: #### 2 609273, 2532798, 5019751, 0815149, 3732654, 4817985, 857438019, 59503509, 4000503 ####[facility] [address] [place] [address] BUN/Creat Ratio 18 No Units Normal 10-20 [facility] Comment on above: Performed By: #### 2 544275, 9541746, 3613762, 6571589, 0906987, 7843355, 515423898, 61863840, 8245866 ####[facility] [address] [place] [address] Calcium [Mass/Vol] 9.5 mg/dL Normal 8.9-11.1 [facility] Comment on above: Performed By: #### 2 664253, 3421479, 0605921, 1825254, 9158756, 7220391, 139076844, 64786027, 8133560 ####[facility] [address] [place] [address] Chloride [Moles/Vol] 105 mmol/L Normal 101-111 [facility] Comment on above: Performed By: #### 2 747408, 8572967, 9285166, 2361514, 8290894, 0232060, 984211147, 06716856, 6759844 ####[facility] [address] [place] [address] CO2 [Moles/Vol] 28 mmol/L Normal 21-31 [facility] Comment on above: Performed By: #### 2 586772, 3489487, 7975105, 9021099, 8067015, 5214002, 658862684, 88165593, 9974547 ####[facility] [address] [place] [address] Creatinine [Mass/Vol] 1.2 mg/dL Normal 0.5-1.3 [facility] Comment on above: Performed By: #### 2 862522, 4214340, 4969731, 0606892, 1646920, 5843465, 953789815, 79356759, 9495591 ####[facility] [address] [place] [address] Globulin (S) [Mass/Vol] 2.4 g/dL Normal 1.4-4.0 [facility] Comment on above: Performed By: #### 2 153625, 4966375, 6998985, 3225159, 5888025, 5322264, 738735486, 04997557, 3986942 ####[address] [place] [address] Glucose [Mass/Vol] 97 mg/dL Normal 55-199 [facility] Comment on above: Performed By: #### 2 278487, 9964663, 8342550, 5661730, 5203462, 3411815, 213246079, 42418410, 4241109 ####[address] [place] [address] Potassium [Moles/Vol] 4.0 mmol/L Normal 3.5-5.3 [facility] Comment on above: Performed By: #### 2 607643, 2807295, 4513839, 0955344, 8410618, 2432161, 552439050, 29123919, 4629127 ####[facility] [address] [place] [address] Protein [Mass/Vol] 6.5 g/dL Normal 6.0-7.8 [facility] Comment on above: Performed By: #### 2 824374, 8836976, 9237235, 9601588, 4949937, 2270391, 657738135, 28660759, 4562013 ####[facility] [address] [place] [address] Sodium [Moles/Vol] 141 mmol/L Normal 135-145 [facility] Comment on above: Performed By: #### 2 122808, 1296946, 5285997, 6698846, 6742906, 4814385, 939122722, 31262422, 1943090 ####[facility] [address] [place] [address] Urea nitrogen [Mass/Vol] 22 mg/dL High 5-21 [facility] Comment on above: Performed By: #### 2 107571, 7026898, 5712891, 9247271, 6542908, 8351204, 175884952, 18886838, 3259310 ####[facility] [address] [place] [address] Family Medicine Office/Clini c Noteon 06-11-2023 Family [...] Metabolic Panel Free T4 Lab Specimen Collect 45452 Lipid Panel T3 Free Thyroid Stimulating Hormone Vitamin D 25 Hydroxy 3. Hyperlipidemia, unspecified (E78.5: Hyperlipidemia, unspecified) lipid drawn in office today Ordered: CBC w/ Auto Diff Comprehensive Metabolic Panel Free T4 Lab Specimen Collect 13009 Lipid Panel T3 Free Thyroid Stimulating Hormone Vitamin D 25 Hydroxy 4. Hypothyroid (E03.9: Hypothyroidism, unspecified) TSH T3 and T4 drawn in office today Ordered: CBC w/ Auto Diff Comprehensive Metabolic Panel Free T4 Lab Specimen Collect 81199 Lipid Panel T3 Free Thyroid Stimulating Hormone Vitamin D 25 Hydroxy 5. Osteopenia (M85.80: Other specified disorders of bone density and structure, unspecified site) pt to continue aldrenonate Ordered: CBC w/ Auto Diff Comprehensive Metabolic Panel Free T4 Lab Specimen Collect 47657 Lipid Panel T3 Free Thyroid Stimulating Hormone Vitamin D 25 Hydroxy 6. Fatigue (R53.83: Other fatigue) labs drawn in office today Ordered: Free T4 Lab Specimen Collect 09793 T3 Free 7. BMI 33.0-33.9,adult (Z68.33: Body mass index [BMI] 33.0-33.9, adult) BMI education complete 8. Non-smoker (Z78.9: Other specified health status) continue not smoking Orders: haloperidol, 5 mg = 1 tab(s), Oral, BID, changed to BID 06/11/23, # 270 tab(s), Refills(s) 1, [facility] 154.9, cm, 02/04/23 10:18:00 EDT, Height/Length Dosing, 75, kg, 02/04/23 10:18:00 EDT, Weight Dosing senna, 8.6 mg = 1 tab(s), Oral, BID, # 60 tab(s), Refills(s) 3, [facility], 154.9, cm, 02/04/23 10:18:00 EDT, Height/Length Dosing, 75, kg, 02/04/23 10:18:00 EDT, Weight Dosing senna, 8.6 mg = 1 tab(s), Oral, BID, # 60 tab(s), Refills(s) 5, [facility], 153, cm, 02/21/23 11:33:00 EDT, [...] Tonsillectomy and (more content not included)... Normal [facility] Comment on above: Result Comment: Elec tronically Signed By: Keya Lucas\.br\Date and Time Signed: 06/11/23 16:21 EST Free T4on 06-11-2023 Free T4 [Mass/Vol] 0.95 ng/dL Normal 0.58-1.64 [facility] Comment on above: Performed By: #### 2 588628, 1854524, 6687625, 4179781, 5078050, 6979996, 365502456, 11365479, 0662841 ####[facility] [address] [place] [address] HEMATOLOGYOrdered By: SYSTEM SYSTEM on 06-11-2023 Basophils/100 WBC (Bld) 0.6 % Normal 0.0 - 2.0 % [facility] Basophils/Leukocyt es Auto (Bld) [Pure # fraction] 0.0 E9/L Normal 0.0 - 0.2 E9/L [facility] Eosinophils/100 WBC (Bld) 1.0 % Normal 0.0 - 8.0 % [facility] Eosinophils/Leukoc ytes Auto (Bld) [Pure # fraction] 0.1 E9/L Normal 0.0 - 0.5 E9/L [facility] Lymphocytes/100 WBC (Bld) 22.6 % Normal 14.0 - 50.0 % [facility] Lymphocytes/Leukoc ytes Auto (Bld) [Pure # fraction] 1.3 E9/L Normal 1.0 - 4.0 E9/L [facility] Monocytes/100 WBC (Bld) 5.5 % Normal 4.0 - 14.0 % [facility] Monocytes/Leukocyt es Auto (Bld) [Pure # fraction] 0.3 E9/L Normal 0.2 - 1.0 E9/L [facility] Neutrophils/100 WBC (Bld) 70.3 % Normal 36.0 - 75.0 % [facility] Neutrophils/Leukoc ytes Auto (Bld) [Pure # fraction] 4.2 E9/L [...] 29.1 pg Normal 27.0 - 34.0 pg [facility] MCHC (RBC) [Mass/Vol] 33.1 g/dL Normal 31.4 - 36.0 gm/dL [facility] MCV (RBC) [Entitic vol] 87.9 fL Normal 80.0 - 100.0 fL [facility] Platelet mean volume (Bld) [Entitic vol] 7.9 fL Normal 6.4 - 10.8 fL [facility] Platelets (Bld) [#/Vol] 231.0 E9/L Normal 150.0 - 500.0 E9/L [facility] RBC (Bld) [#/Vol] 4.1 E12/L Low 4.3 - 5.9 E12/L [facility] WBC corrected for nucl RBC Auto (Bld) [#/Vol] 5.9 E9/L Normal 4.0 - 11.0 E9/L [facility] Lipid Panelon 06-11-2023 Cholesterol [Mass/Vol] 219 mg/dL High 120-200 [facility] Comment on above: Performed By: #### 2 339172, 4859411, 3678341, 4357149, 9682548, 1339369, 920652092, 90268255, 7844461 ####[facility] [address] [place] [address] Cholesterol in HDL [Mass/Vol] 93 mg/dL Invalid Interpretation Code [facility] Comment on above: Result Comment: '>= 60 LOW RISK' '<= 40 HIGH RISK' Performed By: #### 2 890295, 9014290, 3170440, 0710956, 8135259, 2477983, 701092778, 85553801, 4909971 ####[facility] [address] [place] [address] Cholesterol in LDL [Mass/Vol] 94 mg/dL Normal <=129 [facility] Comment on above: Performed By: #### 2 044285, 8412471, 7585485, 5368036, 4115107, 6196608, 282722635, 11351591, 7947177 ####[facility] [address] [place] [address] Cholesterol in VLDL [Mass/Vol] 33 mg/dL Normal 7-40 [facility] Comment on above: Performed By: #### 2 291344, 8675181, 3548208, 4030496, 2917610, 1178185, 568119500, 77079222, 9108084 ####[facility] [address] [place] [address] Triglyceride [Mass/Vol] 167 mg/dL High <=149 [facility] Comment on above: Performed By: #### 2 153267, 1599685, 1719880, 2495635, 7700214, 1899495, [id number], 10611169, 2688813 ####[facility] [address] [place] [address] TSHon 06-11-2023 TSH Qn 1.81 m[IU]/L Normal 0.34-5.60 [facility] Comment on above: Performed By: #### 2 635157, 7813062, 5580747, 2596894, 1803328, 2379536, [id number], 24526426, 2448054 ####[facility] [address] [place] [address] Vitamin D 25 Hydroxyon 06-11 Vitamin D 25 Hydroxy 17.1 ng/mL Low 30.0-100.0 [facility] Comment on above: Performed By: #### 2 083706, 7307307, 3753855, 8657302, 0277381, 5448957, 533474406, 54349682, 9538398 ####[facility] [address] [place] [address] eGFRon 06-11-2023 eGFR 49 mL/min/1.73 m2 Low >=59 [facility] Comment on above: Order Comment: Order added by Discern Expert. Performed By: #### 2 061229, 5497475, 0691536, 2150728, 3414585, 7147311, [id number], 40401209, 7597061 ####[facility] [address] [place] [address] Consultation Noteon 06-09-19 Consultation Note [id number]#[id number] [facility] RAD - Ultrasound Reporton RAD - Ultrasound Report [id number]#1.00TIFF [facility] Pathology Noteon 05-21-2023 Pathology Note [id number]#1.00TIFF [facility] RAD - Ultrasound Reporton RAD - Ultrasound Report [id number]#1.00TIFF [facility] Physician Orderon 05-02-2023 Physician Order [id number]#1.00TIFF [facility] Dexa Scanson 04-16-2023 Dexa Scans [id number]#1.00TIFF [facility] Lab Reportson 04-16-2023 Lab Reports [id number]#1.00TIFF [facility] Outside Mammographyon 2022 Outside Mammography [id number]#1.00TIFF [facility] Hospice Recordson 03-19-2023 Hospice Records [id number]#1.00TIFF [facility] Ambulatory Visit Summaryon 0 02-21-2023 Ambulatory Visit [...] AM EDT Where: [facility] Family Medicine Office/Clini c Noteon 02-21-2023 [...] general adult medical examination without abnormal findings (00.00: Encounter for general adult medical examination without [...] of clutter to prevent tripping and/or falling. [place] Advance Directives reviewed, patient has copy at [...] this time. Colonoscopy last completed at [facility], has been requested. DEXA scan and Mammogram ordered and faxed to [facility]. Reviewed pain symptoms with patient: [...] avoid smoking. (more content not included)... Normal [facility] Comment on above: Result Comment: Elec [...] night-lights. ? Place frequently used items in [place] places. Lower the shelves around your home [...] the way. ? Do not use floor indonesian or wax that makes floors slippery. If [...] include working with a physical therapist or application trainer to improve your strength, balance, and endurance. Where to find more information ? Centers for Disease Control and Prevention, [place]: www.cdc.gov ? National [place] on Aging: www.barrera.nih.gov Contact a health care [...] care provider. (more content not included)... Normal [facility] Screenson 02-21-2023 Screens [id number]#1.00CD:127 Normal [facility] Ambulatory Visit Summaryon 0 02-04-2023 Ambulatory Visit Summary ALYSEMARLEY OGDEN Martinez :1955 Visit Date:02/04/2023 Ambulatory Visit Instructions Your [...] Mouth 3 times a day Pickup at [facility]/pharmacy #6177 Changed levothyroxine (levothyroxine 50 mcg (0.05 mg) Tab) 1 Tablets By Mouth Every day Pickup at [facility]/pharmacy #6177 Changed quetiapine (quetiapine 25 mg Tab) 1 Tablets By Mouth Every day Pickup at [facility]/pharmacy #6177 Changed quetiapine (quetiapine 50 mg oral tablet) 1 Tablets By Mouth Every day Pickup at [facility]/pharmacy #6177 Changed senna (senna 8.6 mg Tab) 1 Tablets By Mouth 2 times a day Pickup at [facility]/pharmacy #6177 [facility] [address] [place], [place] [id number] [phone] Allergies Keflex (rash) penicillins (rash) sulfamethoxazole (rash) Problems Ongoing - Any problem that you are currently receiving treatment for. Anxiety disorder HTN (hypertension) Hyperlipidemia, unspecified Loss of memory Major depression with psychotic features LISA (obstructive sleep apnea) Spasm of muscle Historical - Any problem that you are no longer receiving treatment for. Depression Hypothyroidism IBS - Irritable bowel syndrome Paranoid schizophrenia Normal [facility] Family Medicine Office/Clini c Noteon 02-04-2023 Family Medicine Office/Clinic Note HPI Staff Marley is a 67 year old female presenting to [facility] care Establish Care: History: Any previous diagnosis: Aniety, HTN, HLD, LISA History of seeing any specialist: When was your last doctors visit: Last provider: Fanny Any recent labs: Health Maintenance UTD: Colonoscopy: Mammogram: Pelvic/Pap: Acute: Current issues/complaints: pt recently just d/c [facility] [place] 3 months, walking without walker History of Present Illness pt presents today to [facility] Review of Systems PHQ Score Initial Depression [...] today to establish care. Was in a residential for 3 months. she was in a [...] TID, # 270 tab(s), Refills(s) 1, [facility], 154.9, cm, 02/04/23 10:18:00 EDT, Height/Length Dosing, 75, kg, 02/04/23 10:18:00 EDT, Weight Dosing levothyroxine, 50 mcg = 1 tab(s), Oral, Daily, # 90 tab(s), Refills(s) 1, [facility], 154.9, cm, 02/04/23 10:18:00 EDT, Height/Length Dosing, 75, kg, 02/04/23 10:18:00 EDT, Weight Dosing potassium chloride, 20 mEq = 1 tab(s), Oral, BID, # 180 tab(s), Refills(s) 3, Pharmacy: [facility]/pharmacy #6177, 154.9, cm, 09/10/22 10:27:00 EDT, Height/Length Dosing, 76.2, kg, 09/10/22 10:27:00 EDT, Weight Dosing quetiapine, 25 mg = 1 tab(s), Oral, Daily, # 90 tab(s), Refills(s) 1, [facility], 154.9, cm, 02/04/23 10:18:00 EDT, Height/Length Dosing, 75, kg, 02/04/23 10:18:00 EDT, Weight Dosing quetiapine, 50 mg = 1 tab(s), Oral, Daily, # 90 tab(s), Refills(s) 1, [facility], 154.9, cm, 02/04/23 10:18:00 EDT, Height/Length Dosing, 75, kg, 02/04/23 10:18:00 EDT, Weight Dosing senna, 8.6 mg = 1 tab(s), Oral, BID, # 60 tab(s), Refills(s) 3, Pharmacy: [facility]/pharmacy #6177, 154.9, cm, 02/04/23 10:18:00 EDT, [...] Immunizations Vaccine Date Status Comments SARS-CoV-2 (COVID-19) mRNAMUL.ORD![id number] 03/09/2022 Recorded 2022-08-09: TPV65 influenza virus vaccine, inactivated 02/14/2022 Recorded SARS-CoV-2 (COVID-19) mRNA-1273 vaccine 03/29/2021 Recorded 2022-08-09: TPV65 influenza virus vaccine, inactivated 01/27/2021 Recorded SARS-CoV-2 ( (more content not included)... [facility] Comment on above: Result Comment: Elec tronically Signed By: Ezequiel MYLES, Keya Turner\.br\Date and Time Signed: 02/04/23 10:44 EDT Correction Recordson 02-04 Correction Records [id number]#1.00CD:127 [facility] Transfer Inon 02-04-2023 Transfer In [id number]#1.00CD:127 [facility] C Bldon 10-14-2022 C Bld Final No growth at 5 days. Normal [facility] Comment on above: Performed By: #### U CI #### [place] [address] .eGFRon 10-13-2022 Estimated GFR 54 mL/min/1.73m? Low >=60 [facility] Comment on above: Result Comment: [facility] Laboratories have implemented the eGFR calculation [...] = years Performed By: #### E GFR ####[address] [address] CBC w/ Diffon 10-13-2022 Erythrocyte distribution width (RBC) [Ratio] 16.3 % High 11.6-14.8 [facility] Comment on above: Performed By: #### C D:[id number] #### [address] [address] Hematocrit (Bld) [Volume fraction] 31.7 % Low 36.0-46.0 [facility] Comment on above: Performed By: #### C D:[id number] #### [address] [address] Hemoglobin (Bld) [Mass/Vol] 10.6 g/dL Low 12.0-16.0 [facility] Comment on above: Performed By: #### C D:[id number] #### [address] [address] MCH (RBC) [Entitic mass] 31.5 pg Normal 27.0-35.0 [facility] Comment on above: Performed By: #### C D:[id number] #### [address] [address] MCHC 33.5 % Normal 31.0-37.0 [facility] Comment on above: Performed By: #### C D:[id number] #### [address] [address] MCV (RBC) [Entitic vol] 94.0 fL Normal 80.0-100.0 [facility] Comment on above: Performed By: #### C D:[id number] #### [address] [address] Platelet 216 x10*3/mcL Normal 150-350 [facility] Comment on above: Performed By: #### C D:[id number] #### [address] [address] Platelet mean volume (Bld) [Entitic vol] 8.7 fL Normal 6.7-10.6 [facility] Comment on above: Performed By: #### C D:[id number] #### [address] [address] RBC 3.37 x10*6/mcL Low 3.80-5.20 [facility] Comment on above: Performed By: #### C D:[id number] #### [address] [address] WBC 6.5 x10*3/mcL Normal 4.5-11.0 [facility] Comment on above: Performed By: #### C D:[id number] #### [address] [address] Diff Autoon 10-13-2022 Baso Absolute 0.0 x10*3/mcL Normal 0.0-0.2 [facility] Comment on above: Performed By: #### C D:[id number] #### [address] [address] Basophils/100 WBC (Bld) 0.6 % Normal 0.0-1.5 [facility] Comment on above: Performed By: #### C D:[id number] #### [address] [address] Eos Absolute 0.1 x10*3/mcL Normal 0.0-0.4 [facility] Comment on above: Performed By: #### C D:[id number] #### [address] [address] Eosinophils/100 WBC (Bld) 2.1 % Normal 0.0-5.4 [facility] Comment on above: Performed By: #### C D:[id number] #### [address] [address] Lymph Absolute 0.8 x10*3/mcL Low 1.0-4.8 [facility] Comment on above: Performed By: #### C D:[id number] #### [address] [address] Lymphocytes/100 WBC (Bld) 12.1 % Low 27.2-40.8 [facility] Comment on above: Performed By: #### C D:[id number] #### [address] [address] Assumption Absolute 0.4 x10*3/mcL Normal 0.1-1.1 [facility] Comment on above: Performed By: #### C D:[id number] #### [address] [address] Monocytes/100 WBC (Bld) 6.2 % Normal 3.7-11.9 [facility] Comment on above: Performed By: #### C D:[id number] #### [address] [address] Neutro Absolute 5.1 x10*3/mcL Normal 1.8-7.7 [place] Comment on above: Performed By: #### C D:[id number] #### [address] [address] Neutro Auto 79.0 % High 47.2-70.8 [facility] Comment on above: Performed By: #### C D:[id number] #### [address] [address] Inpatient Clinical Summaryon 10-13-2022 Inpatient Clinical Summary [address] [address] Clinical Summary Person Information Name: Marley Osborn Age: 66 Years : 1955 Sex: Female PCP: Jamil Lundberg MD Marital Status: Phone: PCP: [phone] Race: White Ethnicity: Not or Language: Hungarian Visit Id: Visit Reason: hypernatremia, AMS Speciality: Acuity: Enc Type: Inpatient Med Service: Medicine-General Arrival: 10/09/2022 08:56:04 Discharge: Dispo Type: Address: [address] [place] [id number] Diagnosis: 1:Hypernatremia; 2:Schizophrenia; 3:Hypothermia; 4:Metabolic encephalopathy; 5:Chronic [...] Orthopedic Devices: Current Level of Assistance for Self-Care/Mobility : Cognitive Status: Orientation: Orientation Assessment Identifies self [...] range between ( 27.2 and 40.8 ) Assumption Auto: 6.2 % -- Normal range between [...] range between ( 36.0 and 46.0 ) Assumption Absolute: 0.4 x10 MCH: 31.5 pg -- [...] Creatine Phosphokinas (more content not included)... Normal [facility] Magnesiumon 10-13-2022 Magnesium [Mass/Vol] 1.8 mg/dL Normal 1.7-2.4 [facility] Comment on above: Performed By: #### C D:[id number] #### [facility] [address] [place] [address] Nephrology Progress Noteon 0 10-13-2022 Nephrology Progress [...] Ativan, 1 mg= 0.5 mL, IV Push, [id number] Times, PRN Benadryl, 25 mg, Oral, q6hr, [...] Agree with plan. Patient was transferred from [facility] for hypernatremia, AMS, hypotension, hypothermia, UTI and multiple electrolyte imbalances. Sodium level on 10/04/22 was elevated at 150. Admission to [facility] her sodium was 158 at 13:25. [...] Kei Casas MD 10/13/22 14:56 EDT Normal [facility] Neurology Progress Noteon Neurology Progress Note Subjective Abnormal monoclonal: We will talk about possible clinical assisted where that is here are neurodiagnostic studies [...] Ativan, 1 mg= 0.5 mL, IV Push, [id number] Times, PRN Benadryl, 25 mg, Oral, q6hr, [...] stable. Refractory schizophrenia. would prefer hospice and [place] 5. Chronic anticoagulation 6. Bradycardia 7. Encounter for palliative care Electronically signed by Cody Schulz MD 10/13/22 09:49 EDT Normal [facility] Progress Note-Nurseon 2022 Progress Note-Nurse report called to recieving facility. Electronically signed by Janell Patrick 10/13/22 15:54 EDT Normal [facility] Renal Panelon 10-13-2022 Albumin [Mass/Vol] 3.3 g/dL Normal 3.2-4.9 [place] Comment on above: Performed By: #### B [employer]LD [employer]IN [employer]ER #### [address] [address] Anion gap [Moles/Vol] 10 mmol/L Normal 7-17 [facility] Comment on above: Performed By: #### B [employer]ER #### [address] [place] [address] Calcium [Mass/Vol] 9.4 mg/dL Normal 8.5-10.3 [place] Comment on above: Performed By: #### B [employer]ER #### [address] [place] [address] Chloride [Moles/Vol] 108 mmol/L Normal 98-110 [facility] Comment on above: Performed By: #### B OLD [employer]IN DEALER #### [address] [place] [address] CO2 [Moles/Vol] 27 mmol/L Normal 22-32 [facility] Comment on above: Performed By: #### B OLD [employer]IN DEALER #### [address] [address] Creatinine [Mass/Vol] 1.11 mg/dL High 0.44-1.03 [facility] Comment on above: Performed By: #### B O[employer]ER #### [address] [address] Glucose [Mass/Vol] 114 mg/dL High 70-99 [place] Comment on above: Performed By: #### B O[employer]ER #### [address] [address] Phosphate [Mass/Vol] 2.4 mg/dL Low 2.5-4.6 [facility] Comment on above: Performed By: #### B O[employer]IN [employer]ER #### [address] [address] Potassium [Moles/Vol] 4.1 mmol/L Normal 3.4-4.8 [facility] Comment on above: Performed By: #### B O[employer]ER #### [address] [address] Sodium [Moles/Vol] 141 mmol/L Normal 133-142 [place] Comment on above: Performed By: #### B O[employer]IN DEALER #### [address] [address] Urea nitrogen [Mass/Vol] 10 mg/dL Normal 8-26 [facility] Comment on above: Performed By: #### B OLD COIN DEALER #### [address] [address] Urea nitrogen/Creatinin e [Mass ratio] 9.0 mg/mg Low 10.0-20.0 [facility] Comment on above: Performed By: #### B OLD [employer] DEALER #### [address] [address] .eGFRon 10-12-2022 Estimated GFR 50 mL/min/1.73m? Low >=60 [facility] Comment on above: Result Comment: [facility] Laboratories have implemented the eGFR calculation [...] = years Performed By: #### E GFR ####[address] [address] Basic Metabolic Profileon Anion gap [Moles/Vol] 9 mmol/L Normal 7-17 [facility] Comment on above: Performed By: #### C D:[id number] #### [address] [address] Calcium [Mass/Vol] 9.2 mg/dL Normal 8.5-10.3 [place] Comment on above: Performed By: #### C D:[id number] #### [address] [address] Chloride [Moles/Vol] 111 mmol/L High 98-110 [facility] Comment on above: Performed By: #### C D:[id number] #### [address] [address] CO2 [Moles/Vol] 29 mmol/L Normal 22-32 [facility] Comment on above: Performed By: #### C D:[id number] #### [address] [address] Creatinine [Mass/Vol] 1.19 mg/dL High 0.44-1.03 [facility] Comment on above: Performed By: #### C D:[id number] #### [address] [address] Glucose [Mass/Vol] 109 mg/dL High 70-99 [place] Comment on above: Performed By: #### C D:[id number] #### [address] [address] Potassium [Moles/Vol] 4.2 mmol/L Normal 3.4-4.8 [facility] Comment on above: Performed By: #### C D:[id number] #### [address] [address] Sodium [Moles/Vol] 145 mmol/L High 133-142 [place] Comment on above: Performed By: #### C D:[id number] #### [address] [address] Urea nitrogen [Mass/Vol] 16 mg/dL Normal 8-26 [facility] Comment on above: Performed By: #### C D:[id number] #### [address] [address] Urea nitrogen/Creatinin e [Mass ratio] 13.4 mg/mg Normal 10.0-20.0 [facility] Comment on above: Performed By: #### C D:[id number] #### [address] [address] Nephrology Progress Noteon 0 10-12-2022 Nephrology Progress [...] Ativan, 1 mg= 0.5 mL, IV Push, [id number] Times, PRN Benadryl, 25 mg, Oral, q6hr, [...] at this time. Patient was transferred from [facility] for hypernatremia, AMS, hypotension, hypothermia, UTI and multiple electrolyte imbalances. Sodium level on 10/04/22 was elevated at 150. Admission to [facility] ER her sodium was 158 at 13:25. [...] written. Electronically signed by Kei Casas MD 10/12/22 11:21 EDT Normal [facility] Neurology Progress Noteon Neurology Progress Note Subjective [...] Ativan, 1 mg= 0.5 mL, IV Push, [id number]-[id number] Times, PRN Benadryl, 25 mg, Oral, q6hr, [...] Cody Schulz MD 10/12/22 14:21 EDT Normal [facility] C Urineon 10-11-2022 C Urine Order added by Discern rule. Final 50-100,000 cfu/ml Enterococcus faecalis isolated ORGANISM [employer] ------- SUSCEPTIBILITY ------ ORGANISM ID: 1 ANTIBIOTIC INTERPRETATION TIMOTHY STATUS POS Enterococcus faecalis Ampicillin S <=2 V Ciprofloxacin R >=8 V Daptomycin S 4 V Gentamicin synergy R Syn-R V Levofloxacin R >=8 V Nitrofurantoin S <=16 V Streptomycin synergy R Syn-R V Tetracycline R >=16 V Vancomycin S 1 V Normal [facility] Comment on above: Performed By: #### U ####[facility] (DEFAULT)[address] [place], [place] [address]JB[facility] [place] [address] Nephrology Progress Noteon 0 10-11-2022 Nephrology Progress [...] Ativan, 1 mg= 0.5 mL, IV Push, [id number] Times, PRN Benadryl, 25 mg, Oral, q6hr, [...] comfort measures only Patient was transferred from [facility] for hypernatremia, AMS, hypotension, hypothermia, UTI and multiple electrolyte imbalances. Sodium level on 10/04/22 was elevated at 150. Admission to [facility] her sodium was 158 at 13:25. [...] Kei Casas MD 10/11/22 11:57 EDT Normal [facility] Neurology Progress Noteon Neurology Progress Note Subjective [...] Ativan, 1 mg= 0.5 mL, IV Push, [id number]-Ihhncboy Times, PRN Benadryl, 25 mg, Oral, q6hr, [...] Cody Schulz MD 10/11/22 19:25 EDT Normal [facility] .eGFRon 10-10-2022 Estimated GFR 50 mL/min/1.73m? Low >=60 [facility] Comment on above: Result Comment: [facility] Laboratories have implemented the eGFR calculation [...] Age = years Performed By: #### C D:[id number] #### [address] [address] Estimated GFR 48 mL/min/1.73m? Low >=60 [facility] Comment on above: Result Comment: [facility] Laboratories have implemented the eGFR calculation [...] Age = years Performed By: #### C D:[id number] #### [address] [address] Estimated GFR 47 mL/min/1.73m? Low >=60 [facility] Comment on above: Result Comment: [facility] Laboratories have implemented the eGFR calculation [...] years Performed By: #### C OMP #### [facility] [address] [place] [address] Estimated GFR 39 mL/min/1.73m? Low >=60 [facility] Comment on above: Result Comment: [facility] Laboratories have implemented the eGFR calculation [...] years Performed By: #### C OMP #### [facility] [address] [place] [address] Estimated GFR 45 mL/min/1.73m? Low >=60 [facility] Comment on above: Result Comment: [facility] Laboratories have implemented the eGFR calculation [...] Age = years Performed By: #### C D:[id number] #### [address] [address] B12/Folate Lvlon 10-10-2022 Cobalamin (Vitamin B12) [Mass/Vol] 793 pg/mL Normal 180-914 [facility] Comment on above: Performed By: #### B O[employer]ER #### [address] [address] Folate Lvl 10.3 ng/mL Normal >=5.9 [facility] Comment on above: Result Comment: A [facility] Technical Consultation has determined that deficient Folate concentrations are considered to be less than 4 ng/mL. Performed By: #### B OLD [employer]IN DEALER #### [address] [address] Basic Metabolic Profileon Anion gap [Moles/Vol] 8 mmol/L Normal 7-17 [facility] Comment on above: Order Comment: until sodium normalized Performed By: #### C D:[id number] #### [address] [address] Calcium [Mass/Vol] 8.8 mg/dL Normal 8.5-10.3 [place] Comment on above: Order Comment: until sodium normalized Performed By: #### C D:[id number] #### [address] [address] Chloride [Moles/Vol] 113 mmol/L High 98-110 [facility] Comment on above: Order Comment: until sodium normalized Performed By: #### C D:[id number] #### [address] [address] CO2 [Moles/Vol] 28 mmol/L Normal 22-32 [facility] Comment on above: Order Comment: until sodium normalized Performed By: #### C D:[id number] #### [address] [address] Creatinine [Mass/Vol] 1.20 mg/dL High 0.44-1.03 [facility] Comment on above: Order Comment: until sodium normalized Performed By: #### C D:[id number] #### [address] [address] Glucose [Mass/Vol] 112 mg/dL High 70-99 [place] Comment on above: Order Comment: until sodium normalized Performed By: #### C D:[id number] #### [address] [address] Potassium [Moles/Vol] 3.4 mmol/L Normal 3.4-4.8 [facility] Comment on above: Order Comment: until sodium normalized Performed By: #### C D:[id number] #### [address] [address] Sodium [Moles/Vol] 146 mmol/L High 133-142 [place] Comment on above: Order Comment: until sodium normalized Performed By: #### C D:[id number] #### [address] [address] Urea nitrogen [Mass/Vol] 26 mg/dL Normal 8-26 [facility] Comment on above: Order Comment: until sodium normalized Performed By: #### C D:[id number] #### [address] [address] Urea nitrogen/Creatinin e [Mass ratio] 21.7 mg/mg High 10.0-20.0 [facility] Comment on above: Order Comment: until sodium normalized Performed By: #### C D:[id number] #### [address] [address] Anion gap [Moles/Vol] 9 mmol/L Normal 7-17 [facility] Comment on above: Order Comment: until sodium normalized Performed By: #### C OMP #### [address] [address] Calcium [Mass/Vol] 9.1 mg/dL Normal 8.5-10.3 [place] Comment on above: Order Comment: until sodium normalized Performed By: #### C OMP #### [address] [address] Chloride [Moles/Vol] 114 mmol/L High 98-110 [facility] Comment on above: Order Comment: until sodium normalized Performed By: #### C OMP #### [address] [address] CO2 [Moles/Vol] 29 mmol/L Normal 22-32 [facility] Comment on above: Order Comment: until sodium normalized Performed By: #### C OMP #### [address] [address] Creatinine [Mass/Vol] 1.25 mg/dL High 0.44-1.03 [facility] Comment on above: Order Comment: until sodium normalized Performed By: #### C OMP #### [address] [address] Glucose [Mass/Vol] 101 mg/dL High 70-99 [place] Comment on above: Order Comment: until sodium normalized Performed By: #### C OMP #### [address] [address] Potassium [Moles/Vol] 3.6 mmol/L Normal 3.4-4.8 [facility] Comment on above: Order Comment: until sodium normalized Performed By: #### C OMP #### [address] [place] [address] Sodium [Moles/Vol] 148 mmol/L High 133-142 [place] Comment on above: Order Comment: until sodium normalized Performed By: #### C OMP #### [address] [address] Urea nitrogen [Mass/Vol] 27 mg/dL High 8-26 [facility] Comment on above: Order Comment: until sodium normalized Performed By: #### C OMP #### [address] [address] Urea nitrogen/Creatinin e [Mass ratio] 21.6 mg/mg High 10.0-20.0 [facility] Comment on above: Order Comment: until sodium normalized Performed By: #### C OMP #### [address] [address] Anion gap [Moles/Vol] 12 mmol/L Normal 7-17 [facility] Comment on above: Order Comment: until sodium normalized Performed By: #### C D:[id number] #### [address] [address] Calcium [Mass/Vol] 9.0 mg/dL Normal 8.5-10.3 [place] Comment on above: Order Comment: until sodium normalized Performed By: #### C [id number] #### [address] [address] Chloride [Moles/Vol] 112 mmol/L High 98-110 [facility] Comment on above: Order Comment: until sodium normalized Performed By: #### C [id number] #### [address] [address] CO2 [Moles/Vol] 28 mmol/L Normal 22-32 [facility] Comment on above: Order Comment: until sodium normalized Performed By: #### C [id number] #### [address] [address] Creatinine [Mass/Vol] 1.46 mg/dL High 0.44-1.03 [facility] Comment on above: Order Comment: until sodium normalized Performed By: #### C [id number] #### [address] [address] Glucose [Mass/Vol] 111 mg/dL High 70-99 [place] Comment on above: Order Comment: until sodium normalized Performed By: #### C [id number] #### [address] [address] Potassium [Moles/Vol] 3.6 mmol/L Normal 3.4-4.8 [facility] Comment on above: Order Comment: until sodium normalized Performed By: #### C [id number] #### [address] [address] Sodium [Moles/Vol] 148 mmol/L High 133-142 [place] Comment on above: Order Comment: until sodium normalized Performed By: #### C [id number] #### [address] [address] Urea nitrogen [Mass/Vol] 26 mg/dL Normal 8-26 [facility] Comment on above: Order Comment: until sodium normalized Performed By: #### C [id number] #### [address] [address] Urea nitrogen/Creatinin e [Mass ratio] 17.8 mg/mg Normal 10.0-20.0 [facility] Comment on above: Order Comment: until sodium normalized Performed By: #### C [id number] #### [address] [address] Anion gap [Moles/Vol] 10 mmol/L Normal 7-17 [facility] Comment on above: Order Comment: until sodium normalized Performed By: #### R MAYKEL #### [address] [address] Calcium [Mass/Vol] 9.2 mg/dL Normal 8.5-10.3 [place] Comment on above: Order Comment: until sodium normalized Performed By: #### R ENAL #### [address] [address] Chloride [Moles/Vol] 116 mmol/L High 98-110 [facility] Comment on above: Order Comment: until sodium normalized Performed By: #### R ENAL #### [address] [address] CO2 [Moles/Vol] 29 mmol/L Normal 22-32 [facility] Comment on above: Order Comment: until sodium normalized Performed By: #### R ENAL #### [address] [address] Creatinine [Mass/Vol] 1.29 mg/dL High 0.44-1.03 [facility] Comment on above: Order Comment: until sodium normalized Performed By: #### R ENAL #### [address] [address] Glucose [Mass/Vol] 105 mg/dL High 70-99 [place] Comment on above: Order Comment: until sodium normalized Performed By: #### R ENAL #### [address] [address] Potassium [Moles/Vol] 3.7 mmol/L Normal 3.4-4.8 [facility] Comment on above: Order Comment: until sodium normalized Performed By: #### R ENAL #### [address] [address] Sodium [Moles/Vol] 151 mmol/L High 133-142 [place] Comment on above: Order Comment: until sodium normalized Performed By: #### R ENAL #### [address] [address] Urea nitrogen [Mass/Vol] 28 mg/dL High 8-26 [facility] Comment on above: Order Comment: until sodium normalized Performed By: #### R ENAL #### [address] [address] Urea nitrogen/Creatinin e [Mass ratio] 21.7 mg/mg High 10.0-20.0 [facility] Comment on above: Order Comment: until sodium normalized Performed By: #### R ENAL #### [place] [id number] CBC w/ Diffon 10-10-2022 Erythrocyte distribution width (RBC) [Ratio] 16.6 % High 11.6-14.8 [facility] Comment on above: Performed By: #### C BC ####[place] [id number] Hematocrit (Bld) [Volume fraction] 30.2 % Low 36.0-46.0 [facility] Comment on above: Performed By: #### C BC ####[place] [id number] Hemoglobin (Bld) [Mass/Vol] 10.0 g/dL Low 12.0-16.0 [facility] Comment on above: Performed By: #### C BC ####[place] [id number] MCH (RBC) [Entitic mass] 31.2 pg Normal 27.0-35.0 [facility] Comment on above: Performed By: #### C BC ####[place] [address] MCHC 33.0 % Normal 31.0-37.0 [facility] Comment on above: Performed By: #### C BC ####[place] [id number] MCV (RBC) [Entitic vol] 94.6 fL Normal 80.0-100.0 [facility] Comment on above: Performed By: #### C BC ####[place] [id number] Platelet 211 x10*3/mcL Normal 150-350 [facility] Comment on above: Performed By: #### C BC ####[place] [id number] Platelet mean volume (Bld) [Entitic vol] 8.5 fL Normal 6.7-10.6 [facility] Comment on above: Performed By: #### C BC ####[facility] [place] [address] RBC 3.19 x10*6/mcL Low 3.80-5.20 [facility] Comment on above: Performed By: #### C BC ####[facility] [place] [address] WBC 7.6 x10*3/mcL Normal 4.5-11.0 [facility] Comment on above: Performed By: #### C BC ####[address] [address] CPKon 10-10-2022 Creatine Phosphokinase 20 IU/L Low 38-234 [facility] Comment on above: Performed By: #### C D:[id number] #### [address] [address] Consultation Note - Generico n 10-10-2022 Consultation Note - Generic Chief Complaint change in mentation. 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 All medical history obtained from transfer paperwork and also patient's Freddy over the phone. Patient is currently residing at [facility]. Patient arrived to [facility] emergency department at 1317 on 10/08 from [facility], with initial blood pressure of 195/91, heart [...] bradycardia. According to paperwork and report from [facility], with patient's underlying psychiatric disorders, baseline ranges from appropriate behavior to catatonia. Patient was admitted to [facility] on 09/28 due to worsening confusion and psychosis and in a catatonic state. In assessment dated 09/29, patient is noncommunicative does not cooperate, does not follow commands. Patient is seen in [facility] ICU and arouses to name but no [...] 4 episodes with subsequent admissions to either [facility] or [facility], with this being the worst episode. [...] EXAM: XR (more content not included)... Normal [facility] Cortisolon 10-10-2022 Cortisol 3.3 mcg/dL Normal [facility] Comment on above: Result Comment: Norm als: 6.7 - 22.6 mcg/dL in A.M. < 10.0 mcg/dL in P.M. Performed By: #### C OMP #### [facility] [address] [place] [address] Cult,Urineon 10-10-2022 Cult,Urine Specimen Description .URINE Culture ENTEROCOCCUS FAECALIS >[id number] CFU/ML Report Status FINAL 10/10/2022 SUSCEPTIBILITY Organism ENTEROCOCCUS FAECALIS Method TIMOTHY Ampicillin <=2 SUSCEPTIBLE Ciprofloxacin >=8 RESISTANT Levofloxacin >=8 RESISTANT Nitrofurantoin <=16 SUSCEPTIBLE Tetracycline >=16 RESISTANT Vancomycin 1 SUSCEPTIBLE Susceptible [facility] Comment on above: Performed By: #### U RC #### [facility] [address] [place], [place] [id number] Almond Blancher Hand: Jersey Dahl MD [facility] [address] [place] [address] Almond Blancher Hand: Kayley Doll MD Diff Autoon 10-10-2022 Baso Absolute 0.1 x10*3/mcL Normal 0.0-0.2 [facility] Comment on above: Performed By: #### . Automated Diff ####[address] [address] Basophils/100 WBC (Bld) 0.8 % Normal 0.0-1.5 [facility] Comment on above: Performed By: #### . Automated Diff ####[address] [address] Eos Absolute 0.2 x10*3/mcL Normal 0.0-0.4 [facility] Comment on above: Performed By: #### . Automated Diff ####[address] [address] Eosinophils/100 WBC (Bld) 2.4 % Normal 0.0-5.4 [facility] Comment on above: Performed By: #### . Automated Diff ####[address] [address] Lymph Absolute 1.6 x10*3/mcL Normal 1.0-4.8 [facility] Comment on above: Performed By: #### . Automated Diff ####[address] [address] Lymphocytes/100 WBC (Bld) 20.4 % Low 27.2-40.8 [facility] Comment on above: Performed By: #### . Automated Diff ####[address] [address] Assumption Absolute 0.6 x10*3/mcL Normal 0.1-1.1 [facility] Comment on above: Performed By: #### . Automated Diff ####[address] [address] Monocytes/100 WBC (Bld) 7.4 % Normal 3.7-11.9 [facility] Comment on above: Performed By: #### . Automated Diff ####[address] [address] Neutro Absolute 5.3 x10*3/mcL Normal 1.8-7.7 [place] Comment on above: Performed By: #### . Automated Diff ####[address] [address] Neutro Auto 69.0 % Normal 47.2-70.8 [facility] Comment on above: Performed By: #### . Automated Diff ####[address] [address] Free T4on 10-10-2022 Free T4 [Mass/Vol] 1.20 ng/dL High 0.61-1.12 [place] Comment on above: Result Comment: Refe rence Ranges for Females: Females, 1st Trimester 0.52 ? 1.10 ng/dL Females, 2nd Trimester 0.45 ? 0.99 ng/dL Females, 3rd Trimester 0.48 - 0.95 ng/dL Performed By: #### B OLD COIN DEALER #### [address] [address] MRI Brain + MRA Head w/o Con [...] Electronically Signed in Other Vendor System) Normal [facility] Comment on above: Order Comment: ATIVA N 2 MG IV IF NEEDED Magnesiumon 10-10-2022 Magnesium [Mass/Vol] 2.2 mg/dL Normal 1.7-2.4 [facility] Comment on above: Performed By: #### M G ####[place] [address] Nephrology Progress Noteon 0 10-10-2022 Nephrology Progress [...] Ativan, 1 mg= 0.5 mL, IV Push, [id number] Times, PRN Benadryl, 25 mg, Oral, q6hr, [...] hrs during correction. Patient was transferred from [facility] for hypernatremia, AMS, hypotension, hypothermia, UTI and multiple electrolyte imbalances. Sodium level on 10/04/22 was elevated at 150. Admission to [facility] her sodium was 158 at 13:25. [...] Kei Casas MD 10/10/22 18:21 EDT Normal [facility] Osmol,Serumon 10-10-2022 Serum Osmolality 311 mOsm/kg High 280-295 [facility] Comment on above: Performed By: #### R ENAL #### [address] [address] Renal Panelon 10-10-2022 Albumin [Mass/Vol] 3.4 g/dL Normal 3.2-4.9 [place] Comment on above: Performed By: #### R ENAL #### [address] [address] Anion gap [Moles/Vol] 11 mmol/L Normal 7-17 [facility] Comment on above: Performed By: #### R ENAL #### [address] [address] Calcium [Mass/Vol] 9.1 mg/dL Normal 8.5-10.3 [place] Comment on above: Performed By: #### R ENAL #### [address] [place] [address] Chloride [Moles/Vol] 113 mmol/L High 98-110 [facility] Comment on above: Performed By: #### R ENAL #### [address] [address] CO2 [Moles/Vol] 28 mmol/L Normal 22-32 [facility] Comment on above: Performed By: #### R ENAL #### [address] [address] Creatinine [Mass/Vol] 1.24 mg/dL High 0.44-1.03 [facility] Comment on above: Performed By: #### R ENAL #### [address] [address] Glucose [Mass/Vol] 93 mg/dL Normal 70-99 [place] Comment on above: Performed By: #### R ENAL #### [address] [address] Phosphate [Mass/Vol] 2.4 mg/dL Low 2.5-4.6 [facility] Comment on above: Performed By: #### R ENAL #### [address] [address] Potassium [Moles/Vol] 3.6 mmol/L Normal 3.4-4.8 [facility] Comment on above: Performed By: #### R ENAL #### [address] [address] Sodium [Moles/Vol] 148 mmol/L High 133-142 [place] Comment on above: Performed By: #### R ENAL #### [address] [address] Urea nitrogen [Mass/Vol] 26 mg/dL Normal 8-26 [facility] Comment on above: Performed By: #### R ENAL #### [address] [address] Urea nitrogen/Creatinin e [Mass ratio] 21.0 mg/mg High 10.0-20.0 [facility] Comment on above: Performed By: #### R ENAL #### [address] [address] Speech Therapy Progress Note on 10-10-2022 Speech [...] at that time. Electronically signed by Hafsa gNuyen 10/10/22 14:50 EDT Normal [facility] TIBCon 10-10-2022 Iron [Mass/Vol] 69 ug/dL Normal 28-170 [facility] Comment on above: Performed By: #### C OMP #### [address] [address] Iron Sat 24.1 % Normal >=16.0 [facility] Comment on above: Performed By: #### C OMP #### [address] [address] TIBC 286 mcg/dL Normal 261-478 [facility] Comment on above: Performed By: #### C OMP #### [address] [address] Transferrin [Mass/Vol] 204 mg/dL Normal 192-382 [facility] Comment on above: Performed By: #### C OMP #### [address] [address] UPCRon 10-10-2022 Creatinine [Mass/Vol] 176.2 mg/dL Normal [facility] Comment on above: Order Comment: Order ed by Discern Rule for Protein-Creatinine Ratio. Result Comment: The reference range has not been established for this test on a random urine sample. The test result should be interpreted based on clinical context. Performed By: #### U CI #### [address] [address] Ur Protein 24 mg/dL High <=10 [facility] Comment on above: Order Comment: Order ed by Discern Rule for Protein-Creatinine Ratio. Performed By: #### U CI #### [address] [address] Urine Protein/Creatinine Ratio 0.14 Normal <=0.28 [facility] Comment on above: Order Comment: Order ed by Discern Rule for Protein-Creatinine Ratio. Performed By: #### U CI #### [address] [address] Uric Acidon 10-10-2022 Urate [Mass/Vol] 8.3 mg/dL High 2.6-8.0 [facility] Comment on above: Performed By: #### B OLD COIN DEALER #### [address] [address] Vitamin D 25-Hydroxy Totalon 10-10-2022 Vitamin D 25-Hydroxy Total 41 ng/mL Normal 30-100 [facility] Comment on above: Result Comment: Sharona min D 25-Hydroxy Total Reference Range: Deficient: < 20 Insufficient: 20 to < 30 Sufficient: 30 - 100 Upper Safety Limit: > 100 Performed By: #### B OLD COIN DEALER #### [address] [address] X SSTon 10-10-2022 Extra SST Collected Normal [facility] Comment on above: Performed By: #### C OMP #### [address] [address] XR Chest 1 Viewon 10-10-2022 XR Chest [...] Electronically Signed in Other Vendor System) Normal [facility] .UA Microscp Aon 10-09-2022 UA Bacteria Present Abnormal Absent [facility] Comment on above: Performed By: #### C [id number] #### [address] [address] UA CA Oxalate Present Abnormal Absent [facility] Comment on above: Performed By: #### C [id number] #### [address] [address] UA Mucus Present Abnormal Absent [facility] Comment on above: Performed By: #### C D:[id number] #### [place] [address] [place] [address] UA RBC Quant 39 /HPF High 0-5 [facility] Comment on above: Performed By: #### C D:[id number] #### [place] [address] [place] [address] UA Squepi Cells Quant 1 /HPF Normal 0-29 [facility] Comment on above: Performed By: #### C D:[id number] #### [address] [address] UA WBC Clmp Present Abnormal Absent [facility] Comment on above: Performed By: #### C [id number] #### [address] [address] UA WBC Quant 151 /HPF High 0-5 [facility] Comment on above: Performed By: #### C [id number] #### [address] [address] .eGFRon 10-09-2022 Estimated GFR 47 mL/min/1.73m? Low >=60 [facility] Comment on above: Result Comment: [facility] have implemented the eGFR calculation [...] Age = years Performed By: #### B OLD COIN DEALER #### [address] [address] Estimated GFR 49 mL/min/1.73m? Low >=60 [facility] Comment on above: Result Comment: [facility] have implemented the eGFR calculation [...] years Performed By: #### R ENAL #### [address] [address] Estimated GFR 45 mL/min/1.73m? Low >=60 [facility] Comment on above: Result Comment: [facility] have implemented the eGFR calculation [...] Age = years Performed By: #### B OLD COIN DEALER #### [facility] [address] [place] [address] Estimated GFR 49 mL/min/1.73m? Low >=60 [facility] Comment on above: Result Comment: [facility] have implemented the eGFR calculation [...] = years Performed By: #### E GFR ####[address] [address] Estimated GFR 53 mL/min/1.73m? Low >=60 [facility] Comment on above: Result Comment: [facility] have implemented the eGFR calculation [...] years Performed By: #### R ENAL #### [facility] [address] [place] [address] GFR/1.73 sq M.predicted MDRD (S/P/Bld) [Vol rate/Area] mL/min/{1.73_m2} Normal >=60 [facility] Comment on above: Result Comment: [facility] have implemented the eGFR calculation [...] = years Performed By: #### E GFR ####[place] [address] [place] [address] Ammoniaon 10-09-2022 Ammonia (P) [Moles/Vol] 31 umol/L Normal 9-35 [facility] Comment on above: Performed By: #### C D:[id number] #### [facility] [address] [place] [address] BNPon 10-09-2022 Natriuretic peptide B (Bld) [Mass/Vol] 88 pg/mL Normal 0-100 [facility] Comment on above: Order Comment: CHRISTIAN lambert came in while doing draws and saw BNP was marked as to be collected 10/10/2022 and had talked to pt's dr and asked for it to be collected today Performed By: #### C OMP #### [address] [address] Natriuretic peptide B (Bld) [Mass/Vol] 114 pg/mL High 0-100 [facility] Comment on above: Performed By: #### B OLD COIN DEALER #### [address] [address] Basic Metabolic Panelon 09-30 Anion gap [Moles/Vol] 7 mmol/L Low 9 - 17 mmol/L [facility] [email or web address] Calcium [Mass/Vol] 10.4 mg/dL 8.6 - 10.4 mg/dL [facility] [email or web address] Chloride [Moles/Vol] 117 mmol/L High 98 - 107 mmol/L [facility] [email or web address] CO2 [Moles/Vol] 32 mmol/L High 20 - 31 mmol/L [facility] [employer] [facility] Creatinine [Mass/Vol] 0.88 mg/dL 0.50 - 0.90 mg/dL [facility] [email or web address] GFR/1.73 sq M.predicted MDRD (S/P/Bld) [Vol rate/Area] - [facility] Comment on above: These results are not [...] 118 mg/dL High 70 - 99 mg/dL [employer] Interpretation and review of laboratory results Abnormal [facility] Potassium [Moles/Vol] 3.4 mmol/L Low 3.7 - 5.3 mmol/L [facility] Sodium [Moles/Vol] 156 mmol/L High 135 - 144 mmol/L [facility] Urea nitrogen [Mass/Vol] 31 mg/dL High 8 - 23 mg/dL [facility] Urea nitrogen/Creatinin e (Bld) [Mass ratio] 35 High 9 - 20 [facility] Anion gap [Moles/Vol] 6 mmol/L Low 9 - 17 mmol/L [facility] Calcium [Mass/Vol] 10.4 mg/dL 8.6 - 10.4 mg/dL [facility] Chloride [Moles/Vol] 118 mmol/L High 98 - 107 mmol/L [facility] CO2 [Moles/Vol] 32 mmol/L High 20 - 31 mmol/L [facility] Creatinine [Mass/Vol] 0.91 mg/dL High 0.50 - 0.90 mg/dL [facility] GFR/1.73 sq M.predicted MDRD (S/P/Bld) [Vol rate/Area] - [facility] Comment on above: These results are not [...] [Mass/Vol] 94 mg/dL 70 - 99 mg/dL [facility] Interpretation and review of laboratory results Abnormal [facility] Potassium [Moles/Vol] 3.5 mmol/L Low 3.7 - 5.3 mmol/L [facility] Sodium [Moles/Vol] 156 mmol/L High 135 - 144 mmol/L [facility] Urea nitrogen [Mass/Vol] 32 mg/dL High 8 - 23 mg/dL [facility] Urea nitrogen/Creatinin e (Bld) [Mass ratio] 35 High 9 - 20 [facility] Anion gap [Moles/Vol] 7 mmol/L Low 9 - 17 mmol/L [facility] Calcium [Mass/Vol] 10.3 mg/dL 8.6 - 10.4 mg/dL [facility] Chloride [Moles/Vol] 117 mmol/L High 98 - 107 mmol/L [facility] CO2 [Moles/Vol] 30 mmol/L 20 - 31 mmol/L [facility] Creatinine [Mass/Vol] 0.9 mg/dL 0.50 - 0.90 mg/dL [facility] GFR/1.73 sq M.predicted MDRD (S/P/Bld) [Vol rate/Area] - [facility] Comment on above: These results are not [...] 140 mg/dL High 70 - 99 mg/dL [facility] Interpretation and review of laboratory results Abnormal [facility] Potassium [Moles/Vol] 3.0 mmol/L Low 3.7 - 5.3 mmol/L [facility] Sodium [Moles/Vol] 154 mmol/L High 135 - 144 mmol/L [facility] Urea nitrogen [Mass/Vol] 32 mg/dL High 8 - 23 mg/dL [facility] Urea nitrogen/Creatinin e (Bld) [Mass ratio] 36 High 9 - 20 [facility] Basic Metabolic Profon 10-09 Anion gap [Moles/Vol] 7 mmol/L Low 9-17 [facility] Comment on above: Performed By: #### L IPR #### [facility] [employer] [address] [place] [address] Almond Blancher Hand: Jersey Dahl MD #### SARTHAK ISAAC #### [facility] [address] [place] [address] Almond Blancher Hand: Kayley Doll MD BUN/CRE Ratio 35 High 9-20 [facility] Comment on above: Performed By: #### L IPR #### [facility] [address] [place] [address] Almond Blancher Hand: Jersey Dahl MD #### CDP, CP #### [facility] [address] [place], [place] [id number] Almond Blancher Hand: Kayley Doll MD Calcium [Mass/Vol] 10.4 mg/dL Normal 8.6-10.4 [facility] Comment on above: Performed By: #### L IPR #### [address] [address] Almond Blancher Hand: Jersey Dahl MD #### CDP, CP #### [facility] [address] [place] [address] [address] [place] [id number] Almond Blancher Hand: Kayley Doll MD Chloride [Moles/Vol] 117 mmol/L High 98-107 [facility] Comment on above: Performed By: #### L IPR #### [address] [address] Almond Blancher Hand: Jersey Dahl MD #### CDP, CP #### [facility] [address] [place] [address] [place]. [place], [place] [id number] Almond Blancher Hand: Kayley Doll MD CO2 [Moles/Vol] 32 mmol/L High 20-31 [facility] Comment on above: Performed By: #### L IPR #### [address] [address] Almond Blancher Hand: Jersey Dahl MD #### CDP, CP #### [facility] [address] [place] [address] [address]. [place], [place] [id number] Almond Blancher Hand: Kayley Doll MD Creatinine [Mass/Vol] 0.88 mg/dL Normal 0.50-0.90 [facility] Comment on above: Performed By: #### L IPR #### [address] [address] Almond Blancher Hand: Jersey Dahl MD #### CDP, CP #### [facility] [address] [place], [place] [id number] Almond Blancher Hand: Kayley Doll MD GFR/1.73 sq M.predicted among non-blacks MDRD (S/P/Bld) [Vol rate/Area] mL/min/{1.73_m2} Normal >60 [facility] Comment on above: Result Comment: These [...] secretion. Performed By: #### L IPR #### [address] [address] Almond Blancher Hand: Jersey Dahl MD #### CDP, CP #### [address] [place] [address] Almond Blancher Hand: Kayley Doll MD Glucose [Mass/Vol] 118 mg/dL High 70-99 [facility] Comment on above: Performed By: #### L IPR #### [address] [address] Almond Blancher Hand: Jersey Dahl MD #### CDP, CP #### [facility] [address] [place] [address] [place] [address] Almond Blancher Hand: Kayley Doll MD Potassium [Moles/Vol] 3.4 mmol/L Low 3.7-5.3 [facility] Comment on above: Performed By: #### L IPR #### [address] [id number] Almond Blancher Hand: Jersey Dahl MD #### CDP, CP #### [facility] [address] [place], [place] [id number] Almond Blancher Hand: Kayley Doll MD Sodium [Moles/Vol] 156 mmol/L High 135-144 [facility] Comment on above: Performed By: #### L IPR #### [facility] [address] [place], [place] [id number] Almond Blancher Hand: Jersey Dahl MD #### CDP, CP #### [facility] [address] [place] [address] Almond Blancher Hand: Kayley Doll MD Urea nitrogen [Mass/Vol] 31 mg/dL High 8-23 [facility] Comment on above: Performed By: #### L IPR #### [facility] [address] [place] [address] Almond Blancher Hand: Jersey Dahl MD #### CDP, CP #### [facility] [address] [place], [place] [id number] Almond Blancher Hand: Kayley Doll MD Anion gap [Moles/Vol] 6 mmol/L Low 9-17 [facility] Comment on above: Performed By: #### B MP #### [facility] [address] [place], [place] [id number] Almond Blancher Hand: Kayley Doll MD BUN/CRE Ratio 35 High 9-20 [facility] Comment on above: Performed By: #### B MP #### [facility] [address] [place] [address] Almond Blancher Hand: Kayley Doll MD Calcium [Mass/Vol] 10.4 mg/dL Normal 8.6-10.4 [facility] Comment on above: Performed By: #### B MP #### [facility] [address] [place] [address] Almond Blancher Hand: Kayley Doll MD Chloride [Moles/Vol] 118 mmol/L High 98-107 [facility] Comment on above: Performed By: #### B MP #### [facility] [address] [place] [address] Almond Blancher Hand: Kayley Doll MD CO2 [Moles/Vol] 32 mmol/L High 20-31 [facility] Comment on above: Performed By: #### B MP #### [facility] [address] [place] [address] Almond Blancher Hand: Kayley Doll MD Creatinine [Mass/Vol] 0.91 mg/dL High 0.50-0.90 [facility] Comment on above: Performed By: #### B MP #### [facility] [address] [place] [address] Almond Blancher Hand: Kayley Doll MD GFR/1.73 sq M.predicted among non-blacks MDRD (S/P/Bld) [Vol rate/Area] mL/min/{1.73_m2} Normal >60 [facility] Comment on above: Result Comment: These [...] secretion. Performed By: #### B MP #### [facility] [address] [place] [address] Almond Blancher Hand: Kayley Doll MD Glucose [Mass/Vol] 94 mg/dL Normal 70-99 [facility] Comment on above: Performed By: #### B MP #### [facility] [address] [place] [address] Almond Blancher Hand: Kayley Doll MD Potassium [Moles/Vol] 3.5 mmol/L Low 3.7-5.3 [facility] Comment on above: Performed By: #### B MP #### [facility] [address] [place], [place] [phone] Almond Blancher Hand: Kayley Doll MD Sodium [Moles/Vol] 156 mmol/L High 135-144 [facility] Comment on above: Performed By: #### B MP #### [facility] [address] [place] [address] Almond Blancher Hand: Kayley Doll MD Urea nitrogen [Mass/Vol] 32 mg/dL High 8-23 [facility] Comment on above: Performed By: #### B MP #### [facility] [address] [place] [address] Almond Blancher Hand: Kayley Doll MD Anion gap [Moles/Vol] 7 mmol/L Low 9-17 [facility] Comment on above: Performed By: #### L IPR #### [address] [address] Almond Blancher Hand: Jersey Dahl MD #### CDP, CP #### [facility] [address] [place] [address] [place] [place], [place] [phone] Almond Blancher Hand: Kayley Doll MD BUN/CRE Ratio 36 High 9-20 [facility] Comment on above: Performed By: #### L IPR #### [facility] [address] [place] [address] Almond Blancher Hand: Jersey Dahl MD #### CDP, CP #### [facility] [address] [place], [place] [phone] Almond Blancher Hand: Kayley Doll MD Calcium [Mass/Vol] 10.3 mg/dL Normal 8.6-10.4 [facility] Comment on above: Performed By: #### L IPR #### [facility] [address] [place] [address] Almond Blancher Hand: Jersey Dahl MD #### CDP, CP #### [facility] [address] [place] [address] Almond Blancher Hand: Kayley Doll MD Chloride [Moles/Vol] 117 mmol/L High 98-107 [facility] Comment on above: Performed By: #### L IPR #### [address] [phone] Almond Blancher Hand: Jersey Dahl MD #### CDP, CP #### [facility] [address] [place] [address] Almond Blancher Hand: Kayley Doll MD CO2 [Moles/Vol] 30 mmol/L Normal 20-31 [facility] Comment on above: Performed By: #### L IPR #### [address] [id number] Almond Blancher Hand: Jersey Dahl MD #### CDP, CP #### [facility] [address] [place] [address] Almond Blancher Hand: Kayley Doll MD Creatinine [Mass/Vol] 0.90 mg/dL Normal 0.50-0.90 [facility] Comment on above: Performed By: #### L IPR #### [address] [phone] Almond Blancher Hand: Jersey Dahl MD #### CDP, CP #### [facility] [address] [place] [address] Almond Blancher Hand: Kayley Doll MD GFR/1.73 sq M.predicted among non-blacks MDRD (S/P/Bld) [Vol rate/Area] mL/min/{1.73_m2} Normal >60 [facility] Comment on above: Result Comment: These [...] secretion. Performed By: #### L IPR #### [address] [place] [place] [address] Almond Blancher Hand: Jersey Dahl MD #### CDP, CP #### [address] [place], [place] [phone] Almond Blancher Hand: Kayley Doll MD Glucose [Mass/Vol] 140 mg/dL High 70-99 [facility] Comment on above: Performed By: #### L IPR #### [address] [address] Almond Blancher Hand: Jersey Dahl MD #### CDP, CP #### [address] [place] [address]3883 Almond Blancher Hand: Kayley Doll MD Potassium [Moles/Vol] 3.0 mmol/L Low 3.7-5.3 [facility] Comment on above: Performed By: #### L IPR #### [address] [address] Almond Blancher Hand: Jersey Dahl MD #### CDP, CP #### [address] [place] [address]83 Almond Blancher Hand: Kayley Doll MD Sodium [Moles/Vol] 154 mmol/L High 135-144 [facility] Comment on above: Performed By: #### L IPR #### [address] [address] Almond Blancher Hand: Jersey Dahl MD #### CDP, CP #### [address] [place], [place] 7911983 Almond Blancher Hand: Kayley Doll MD Urea nitrogen [Mass/Vol] 32 mg/dL High 8-23 [facility] Comment on above: Performed By: #### L IPR #### [address] [address] Almond Blancher Hand: Jersey Dahl MD #### CDP, CP #### [facility] [address] [place], [place] [phone] Almond Blancher Hand: Kayley Doll MD Anion gap [Moles/Vol] 10 mmol/L Normal 9-17 [facility] Comment on above: Performed By: #### L IPR #### [address] [address] Almond Blancher Hand: Jersey Dhal MD #### CDP, CP #### [facility] [address] [place], [place] 6176483 Almond Blancher Hand: Kayley Doll MD BUN/CRE Ratio 37 High 9-20 [facility] Comment on above: Performed By: #### L IPR #### [address] [address] Almond Blancher Hand: Jersey Dahl MD #### CDP, CP #### [facility] [address] [place], [place] 9604983 Almond Blancher Hand: Kayley Doll MD Calcium [Mass/Vol] 10.3 mg/dL Normal 8.6-10.4 [facility] Comment on above: Performed By: #### L IPR #### [address] [address] Almond Blancher Hand: Jersey Dahl MD #### CDP, CP #### [facility] [address] [place], [place] 3128683 Almond Blancher Hand: Kayley Doll MD Chloride [Moles/Vol] 116 mmol/L High 98-107 [facility] Comment on above: Performed By: #### L IPR #### [address] [phone] Almond Blancher Hand: Jersey Dahl MD #### CDP, CP #### [facility] [address] [place] [address] Almond Blancher Hand: Kayley Doll MD CO2 [Moles/Vol] 29 mmol/L Normal 20-31 [facility] Comment on above: Performed By: #### L IPR #### [facility] [address] [place] [address] Almond Blancher Hand: Jersey Dahl MD #### CDP, CP #### [facility] [address] [place] [address] Almond Blancher Hand: Kayley Doll MD Creatinine [Mass/Vol] 0.94 mg/dL High 0.50-0.90 [facility] Comment on above: Performed By: #### L IPR #### [address] [address] Almond Blancher Hand: Jersey Dahl MD #### CDP, CP #### [address] [place] [address] Almond Blancher Hand: Kayley Doll MD GFR/1.73 sq M.predicted among non-blacks MDRD (S/P/Bld) [Vol rate/Area] mL/min/{1.73_m2} Normal >60 [facility] Comment on above: Result Comment: These [...] secretion. Performed By: #### L IPR #### [facility] [address] [place] [address] Almond Blancher Hand: Jersey Dahl MD #### CDP, CP #### [facility] [address] [place] [address] Almond Blancher Hand: Kayley Doll MD Glucose [Mass/Vol] 144 mg/dL High 70-99 [facility] Comment on above: Performed By: #### L IPR #### [facility] [address] [place] [address] Almond Blancher Hand: Jersey Dahl MD #### CDP, CP #### [facility] [address] [place], [place] 5960083 Almond Blancher Hand: Kayley Doll MD Potassium [Moles/Vol] 3.3 mmol/L Low 3.7-5.3 [facility] Comment on above: Performed By: #### L IPR #### [address] [address] Almond Blancher Hand: Jersey Dahl MD #### CDP, CP #### [facility] [address] [place] [address] [place]. [place], [place] [id number] Almond Blancher Hand: Kayley Doll MD Sodium [Moles/Vol] 155 mmol/L High 135-144 [facility] Comment on above: Performed By: #### L IPR #### [address] [address] Almond Blancher Hand: Jersey Dahl MD #### CDP, CP #### [facility] [address] [place] [address] [place], [place] 4482583 Almond Blancher Hand: Kayley Doll MD Urea nitrogen [Mass/Vol] 35 mg/dL High 8-23 [facility] Comment on above: Performed By: #### L IPR #### [address] [address] Almond Blancher Hand: Jersey Dahl MD #### CDP, CP #### [facility] [address] [place], [place] 2742483 Almond Blancher Hand: Kayley Doll MD Basic Metabolic Profileon Anion gap [Moles/Vol] 10 mmol/L Normal 7-17 [facility] Comment on above: Order Comment: until sodium normalized Performed By: #### C D:[id number] ####[address] [address] Calcium [Mass/Vol] 9.1 mg/dL Normal 8.5-10.3 [place] Comment on above: Order Comment: until sodium normalized Performed By: #### C D:[id number] ####[address] [address] Chloride [Moles/Vol] 117 mmol/L High 98-110 [facility] Comment on above: Order Comment: until sodium normalized Performed By: #### C D:[id number] ####[address] [address] CO2 [Moles/Vol] 28 mmol/L Normal 22-32 [facility] Comment on above: Order Comment: until sodium normalized Performed By: #### C D:[id number] ####[address] [address] Creatinine [Mass/Vol] 1.26 mg/dL High 0.44-1.03 [facility] Comment on above: Order Comment: until sodium normalized Performed By: #### C D:[id number] ####[address] [address] Glucose [Mass/Vol] 90 mg/dL Normal 70-99 [place] Comment on above: Order Comment: until sodium normalized Performed By: #### C D:[id number] ####[address] [address] Potassium [Moles/Vol] 3.9 mmol/L Normal 3.4-4.8 [facility] Comment on above: Order Comment: until sodium normalized Performed By: #### C D:[id number] ####[address] [address] Sodium [Moles/Vol] 151 mmol/L High 133-142 [place] Comment on above: Order Comment: until sodium normalized Performed By: #### C D:[id number] ####[address] [address] Urea nitrogen [Mass/Vol] 30 mg/dL High 8-26 [facility] Comment on above: Order Comment: until sodium normalized Performed By: #### C D:[id number] ####[address] [address] Urea nitrogen/Creatinin e [Mass ratio] 23.8 mg/mg High 10.0-20.0 [facility] Comment on above: Order Comment: until sodium normalized Performed By: #### C D:[id number] ####[address] [address] Anion gap [Moles/Vol] 10 mmol/L Normal 7-17 [facility] Comment on above: Order Comment: until sodium normalized Performed By: #### C D:[id number] #### [address] [address] Calcium [Mass/Vol] 9.2 mg/dL Normal 8.5-10.3 [place] Comment on above: Order Comment: until sodium normalized Performed By: #### C D:[id number] #### [address] [address] Chloride [Moles/Vol] 116 mmol/L High 98-110 [facility] Comment on above: Order Comment: until sodium normalized Performed By: #### C D:[id number] #### [address] [address] CO2 [Moles/Vol] 29 mmol/L Normal 22-32 [facility] Comment on above: Order Comment: until sodium normalized Performed By: #### C D:[id number] #### [address] [address] Creatinine [Mass/Vol] 1.21 mg/dL High 0.44-1.03 [facility] Comment on above: Order Comment: until sodium normalized Performed By: #### C D:[id number] #### [address] [address] Glucose [Mass/Vol] 81 mg/dL Normal 70-99 [place] Comment on above: Order Comment: until sodium normalized Performed By: #### C D:[id number] #### [address] [address] Potassium [Moles/Vol] 4.0 mmol/L Normal 3.4-4.8 [facility] Comment on above: Order Comment: until sodium normalized Performed By: #### C D:[id number] #### [address] [address] Sodium [Moles/Vol] 151 mmol/L High 133-142 [place] Comment on above: Order Comment: until sodium normalized Performed By: #### C D:[id number] #### [address] [address] Urea nitrogen [Mass/Vol] 29 mg/dL High 8-26 [facility] Comment on above: Order Comment: until sodium normalized Performed By: #### C D:[id number] #### [address] [address] Urea nitrogen/Creatinin e [Mass ratio] 24.0 mg/mg High 10.0-20.0 [facility] Comment on above: Order Comment: until sodium normalized Performed By: #### C D:[id number] #### [address] [address] Anion gap [Moles/Vol] 9 mmol/L Normal 7-17 [facility] Comment on above: Performed By: #### U CI #### [address] [address] Calcium [Mass/Vol] 9.4 mg/dL Normal 8.5-10.3 [place] Comment on above: Performed By: #### U CI #### [address] [address] Chloride [Moles/Vol] 116 mmol/L High 98-110 [facility] Comment on above: Performed By: #### U CI #### [address] [address] CO2 [Moles/Vol] 30 mmol/L Normal 22-32 [facility] Comment on above: Performed By: #### U CI #### [address] [address] Creatinine [Mass/Vol] 1.31 mg/dL High 0.44-1.03 [facility] Comment on above: Performed By: #### U CI #### [address] [address] Glucose [Mass/Vol] 94 mg/dL Normal 70-99 [place] Comment on above: Performed By: #### U CI #### [address] [address] Potassium [Moles/Vol] 4.0 mmol/L Normal 3.4-4.8 [facility] Comment on above: Performed By: #### U CI #### [address] [address] Sodium [Moles/Vol] 151 mmol/L High 133-142 [place] Comment on above: Performed By: #### U CI #### [address] [address] Urea nitrogen [Mass/Vol] 31 mg/dL High 8-26 [facility] Comment on above: Performed By: #### U CI #### [address] [address] Urea nitrogen/Creatinin e [Mass ratio] 23.7 mg/mg High 10.0-20.0 [facility] Comment on above: Performed By: #### U CI #### [address] [address] Anion gap [Moles/Vol] 9 mmol/L Normal 7-17 [facility] Comment on above: Order Comment: until sodium normalized Performed By: #### C D:[id number] #### [address] [address] Calcium [Mass/Vol] 9.2 mg/dL Normal 8.5-10.3 [place] Comment on above: Order Comment: until sodium normalized Performed By: #### C D:[id number] #### [address] [address] Chloride [Moles/Vol] 116 mmol/L High 98-110 [facility] Comment on above: Order Comment: until sodium normalized Performed By: #### C D:[id number] #### [address] [address] CO2 [Moles/Vol] 29 mmol/L Normal 22-32 [facility] Comment on above: Order Comment: until sodium normalized Performed By: #### C D:[id number] #### [address] [address] Creatinine [Mass/Vol] 1.22 mg/dL High 0.44-1.03 [facility] Comment on above: Order Comment: until sodium normalized Performed By: #### C D:[id number] #### [address] [address] Glucose [Mass/Vol] 145 mg/dL High 70-99 [place] Comment on above: Order Comment: until sodium normalized Performed By: #### C D:[id number] #### [address] [address] Potassium [Moles/Vol] 3.9 mmol/L Normal 3.4-4.8 [facility] Comment on above: Order Comment: until sodium normalized Performed By: #### C D:[id number] #### [address] [address] Sodium [Moles/Vol] 150 mmol/L High 133-142 [place] Comment on above: Order Comment: until sodium normalized Performed By: #### C D:[id number] #### [address] [address] Urea nitrogen [Mass/Vol] 30 mg/dL High 8-26 [facility] Comment on above: Order Comment: until sodium normalized Performed By: #### C D:[id number] #### [address] [address] Urea nitrogen/Creatinin e [Mass ratio] 24.6 mg/mg High 10.0-20.0 [facility] Comment on above: Order Comment: until sodium normalized Performed By: #### C D:[id number] #### [address] [address] Anion gap [Moles/Vol] 11 mmol/L Normal 7-17 [facility] Comment on above: Order Comment: until sodium normalized Performed By: #### C D:[id number] #### [address] [address] Calcium [Mass/Vol] 9.5 mg/dL Normal 8.5-10.3 [place] Comment on above: Order Comment: until sodium normalized Performed By: #### C D:[id number] #### [address] [address] Chloride [Moles/Vol] 117 mmol/L High 98-110 [facility] Comment on above: Order Comment: until sodium normalized Performed By: #### C D:[id number] #### [address] [address] CO2 [Moles/Vol] 28 mmol/L Normal 22-32 [facility] Comment on above: Order Comment: until sodium normalized Performed By: #### C D:[id number] #### [address] [address] Creatinine [Mass/Vol] 1.14 mg/dL High 0.44-1.03 [facility] Comment on above: Order Comment: until sodium normalized Performed By: #### C D:[id number] #### [address] [address] Glucose [Mass/Vol] 99 mg/dL Normal 70-99 [place] Comment on above: Order Comment: until sodium normalized Performed By: #### C D:[id number] #### [address] [address] Potassium [Moles/Vol] 3.4 mmol/L Normal 3.4-4.8 [facility] Comment on above: Order Comment: until sodium normalized Performed By: #### C D:[id number] #### [address] [address] Sodium [Moles/Vol] 153 mmol/L High 133-142 [place] Comment on above: Order Comment: until sodium normalized Performed By: #### C D:[id number] #### [address] [address] Urea nitrogen [Mass/Vol] 33 mg/dL High 8-26 [facility] Comment on above: Order Comment: until sodium normalized Performed By: #### C D:[id number] #### [address] [address] Urea nitrogen/Creatinin e [Mass ratio] 28.9 mg/mg High 10.0-20.0 [facility] Comment on above: Order Comment: until sodium normalized Performed By: #### C D:[id number] #### [address] [address] Blood Gas Arterialon 023 Base Excess Art 6.0 mEq/L High -2.0-2.0 [facility] Comment on above: Performed By: #### C D:[id number] #### [address] [address] BG Emigdio Test Satisfactory Normal [facility] Comment on above: Performed By: #### C D:[id number] #### [address] [address] BG Collection Site Rt Rad Normal [place] Comment on above: Performed By: #### C D:[id number] #### [address] [address] Carboxyhemoglobin Arterial 1.0 % total Normal 0.0-2.0 [facility] Comment on above: Performed By: #### C D:[id number] #### [address] [address] Hb Totl Arterial 9.3 g% Low 12.0-16.0 [facility] Comment on above: Performed By: #### C D:[id number] #### [address] [address] HbO2 Art 97 % total Normal 94-100 [facility] Comment on above: Performed By: #### C D:[id number] #### [address] [address] HCO3 (Bld) [Moles/Vol] 32 mmol/L High 21-27 [facility] Comment on above: Performed By: #### C D:[id number] #### [address] [address] Met Hb Arterial 0.6 % total Normal 0.0-2.0 [facility] Comment on above: Performed By: #### C D:[id number] #### [address] [address] O2 Meth O2 Normal [facility] Comment on above: Performed By: #### C D:[id number] #### [address] [place] [address] pCO2 Art 55 mmHg High 35-45 [facility] Comment on above: Performed By: #### C D:[id number] #### [facility] [address] [place] [address] pH Art 7.38 Normal 7.35-7.45 [facility] Comment on above: Performed By: #### C D:[id number] #### [address] [address] pO2 Art 112 mmHg High 80-100 [facility] Comment on above: Performed By: #### C D:[id number] #### [address] [address] CBC w/ Diffon 10-09-2022 Erythrocyte distribution width (RBC) [Ratio] 16.4 % High 11.6-14.8 [facility] Comment on above: Performed By: #### [employer] #### [place] [id number] Hematocrit (Bld) [Volume fraction] 29.2 % Low 36.0-46.0 [facility] Comment on above: Performed By: #### [employer] #### [place] [id number] Hemoglobin (Bld) [Mass/Vol] 9.7 g/dL Low 12.0-16.0 [facility] Comment on above: Performed By: #### [employer] #### [place] [id number] MCH (RBC) [Entitic mass] 31.3 pg Normal 27.0-35.0 [facility] Comment on above: Performed By: #### B [employer]ER #### [place] [address] MCHC 33.2 % Normal 31.0-37.0 [facility] Comment on above: Performed By: #### [employer] #### [place] [id number] MCV (RBC) [Entitic vol] 94.1 fL Normal 80.0-100.0 [facility] Comment on above: Performed By: #### [employer] #### [place] [id number] Platelet 187 x10*3/mcL Normal 150-350 [facility] Comment on above: Performed By: #### [employer] #### [address] [address] Platelet mean volume (Bld) [Entitic vol] 8.5 fL Normal 6.7-10.6 [facility] Comment on above: Performed By: #### [employer] #### [address] [place] [address] RBC 3.10 x10*6/mcL Low 3.80-5.20 [facility] Comment on above: Performed By: #### [employer] #### [address] [address] WBC 5.8 x10*3/mcL Normal 4.5-11.0 [facility] Comment on above: Performed By: #### [employer] #### [address] [address] CMPon 10-09-2022 Albumin [Mass/Vol] 3.2 g/dL Normal 3.2-4.9 [place] Comment on above: Performed By: #### C OMP #### [address] [address] Albumin/Globulin [Mass ratio] 1.1 {ratio} Normal 1.1-2.2 [facility] Comment on above: Performed By: #### C OMP #### [address] [address] Alk Phos 75 IU/L Normal 32-91 [facility] Comment on above: Performed By: #### C OMP #### [address] [address] ALT [Catalytic activity/Vol] 27 U/L Normal 14-54 [facility] Comment on above: Performed By: #### C OMP #### [address] [address] Anion gap [Moles/Vol] 10 mmol/L Normal 7-17 [facility] Comment on above: Performed By: #### C OMP #### [address] [address] AST [Catalytic activity/Vol] 24 U/L Normal 15-41 [facility] Comment on above: Performed By: #### C OMP #### [address] [address] Bili Total 0.9 mg/dL Normal 0.3-1.2 [facility] Comment on above: Performed By: #### C OMP #### [address] [address] Calcium [Mass/Vol] 9.4 mg/dL Normal 8.5-10.3 [place] Comment on above: Performed By: #### C OMP #### [address] [address] Chloride [Moles/Vol] 117 mmol/L High 98-110 [facility] Comment on above: Performed By: #### C OMP #### [address] [address] CO2 [Moles/Vol] 28 mmol/L Normal 22-32 [facility] Comment on above: Performed By: #### C OMP #### [address] [address] Creatinine [Mass/Vol] 0.95 mg/dL Normal 0.44-1.03 [facility] Comment on above: Performed By: #### C OMP #### [address] [address] Glucose [Mass/Vol] 150 mg/dL High 70-99 [place] Comment on above: Performed By: #### C OMP #### [address] [address] Potassium [Moles/Vol] 3.3 mmol/L Low 3.4-4.8 [facility] Comment on above: Performed By: #### C OMP #### [address] [address] Protein [Mass/Vol] 6.1 g/dL Low 6.5-8.1 [place] Comment on above: Performed By: #### C OMP #### [address] [address] Sodium [Moles/Vol] 152 mmol/L High 133-142 [place] Comment on above: Performed By: #### C OMP #### [address] [address] Urea nitrogen [Mass/Vol] 33 mg/dL High 8-26 [facility] Comment on above: Performed By: #### C OMP #### [address] [address] Urea nitrogen/Creatinin e [Mass ratio] 34.7 mg/mg High 10.0-20.0 [facility] Comment on above: Performed By: #### C OMP #### [address] [address] Diff Autoon 10-09-2022 Baso Absolute 0.0 x10*3/mcL Normal 0.0-0.2 [facility] Comment on above: Performed By: #### . Automated Diff ####[address] [address] Basophils/100 WBC (Bld) 0.6 % Normal 0.0-1.5 [facility] Comment on above: Performed By: #### . Automated Diff ####[address] [address] Eos Absolute 0.1 x10*3/mcL Normal 0.0-0.4 [facility] Comment on above: Performed By: #### . Automated Diff ####[address] [address] Eosinophils/100 WBC (Bld) 2.5 % Normal 0.0-5.4 [facility] Comment on above: Performed By: #### . Automated Diff ####[address] [address] Lymph Absolute 0.8 x10*3/mcL Low 1.0-4.8 [facility] Comment on above: Performed By: #### . Automated Diff ####[address] [address] Lymphocytes/100 WBC (Bld) 14.5 % Low 27.2-40.8 [facility] Comment on above: Performed By: #### . Automated Diff ####[place] [address] [place] Absolute 0.3 x10*3/mcL Normal 0.1-1.1 [facility] Comment on above: Performed By: #### . Automated Diff ####[address] [address] Monocytes/100 WBC (Bld) 5.8 % Normal 3.7-11.9 [facility] Comment on above: Performed By: #### . Automated Diff ####[address] [address] Neutro Absolute 4.5 x10*3/mcL Normal 1.8-7.7 [place] Comment on above: Performed By: #### . Automated Diff ####[place] [address] Neutro Auto 76.6 % High 47.2-70.8 [facility] Comment on above: Performed By: #### . Automated Diff ####[place] [id number] Lactic Acid, Initial w/Rflx 3 Houron 10-09-2022 Lactic Acid, Initial 1.4 mmol/L Normal 0.5-2.0 [facility] Comment on above: Performed By: #### C [id number] ####[address] [address] MRSA, PCRon 10-09-2022 LAB ONLY Result Called? No Normal [facility] Comment on above: Performed By: #### B O[employer]IN [employer]ER #### [address] [address] Methicillin Resistant Staph aurus(MRSA) Not detected Normal Not Detected [facility] Comment on above: Result Comment: Mut ations or polymorphisms in primer or probe binding regions may affect detection of new or unknown MRSA variants resulting in a false negative. The [employer] Xpert MRSA Assay is a qualitative in [...] to the clinician. Performed By: #### B OLD COIN DEALER #### [address] [address] Magnesiumon 10-09-2022 Magnesium [Mass/Vol] 1.5 mg/dL Low 1.7-2.4 [facility] Comment on above: Performed By: #### C [id number] #### [address] [address] Myoglobinon 10-09-2022 Myoglobin [Mass/Vol] 37.1 ng/mL Normal [facility] Comment on above: Performed By: #### C OMP #### [address] [address] Osmol,Serumon 10-09-2022 Serum Osmolality 319 mOsm/kg High 280-295 [facility] Comment on above: Performed By: #### C [id number] #### [address] [address] PTon 10-09-2022 INR Coag (PPP) [Relative time] 1.1 {INR} Normal <=3.5 [facility] Comment on above: Result Comment: INR has no normal range. INR Therapeutic range is: 2.0-3.0 (AF, CVA, TIAs, DVT prophylaxis, acute DVT) 2.5-3.5 (Mech heart valves, recurrent thrombosis/emboli) Performed By: #### C [id number] #### [address] [address] PT Coag (PPP) [Time] 11.5 s Normal 9.3-11.9 [facility] Comment on above: Performed By: #### C [id number] #### [address] [address] PTTon 10-09-2022 aPTT Coag (Bld) [Time] 29.1 s Normal 20.6-29.2 [facility] Comment on above: Performed By: #### C OMP #### [address] [address] Phosphoruson 10-09-2022 Phosphate [Mass/Vol] 2.8 mg/dL Normal 2.5-4.6 [facility] Comment on above: Performed By: #### C [id number] #### [address] [address] TSHon 10-09-2022 TSH Qn 0.97 m[IU]/L Normal 0.45-5.33 [facility] Comment on above: Result Comment: Refe rence Ranges for individuals from to 18 years of age were obtained from The Inna Asencio Handbook (20 ed) published by [facility]. Reference Ranges for Females: Females, 1st Trimester 0.05 ? 3.7 uIU/mL Females, 2nd Trimester 0.31 ? 4.35 uIU/mL Females, 3rd Trimester 0.41 ? 5.18 uIU/mL Performed By: #### C [id number] #### [address] [address] Troponin-Ion 10-09-2022 Troponin I.cardiac [Mass/Vol] ng/mL Normal 0.00-0.03 [facility] Comment on above: Result Comment: An i ncreased Troponin-I value, in the absence of myocardial ischemia, may indicate other etiologies of cardiac damage. Performed By: #### C [id number] #### [address] [address] U Lyteson 10-09-2022 Chloride [Moles/Vol] 175 mmol/L Normal [facility] Comment on above: Performed By: #### C OMP #### [address] [address] Potassium [Moles/Vol] 62.0 mmol/L Normal [facility] Comment on above: Performed By: #### C OMP #### [address] [address] Sodium [Moles/Vol] 150 mmol/L Normal [place] Comment on above: Performed By: #### C OMP #### [address] [address] U Osmolon 10-09-2022 Urine Osmolality 593 mOsm/kg H2O Normal 50-1200 [facility] Comment on above: Order Comment: Pleas e obtain urine and serum testing together. Place Ell[place], drain bladder, then obtain sample. Performed By: #### B O[employer]ER #### [address] [address] UA w Culture if Indon 2022 Color (U) Yellow Normal [facility] Comment on above: Performed By: #### U CI #### [address] [address] Ketones Ql (U) 10 mg/dL Abnormal Negative [facility] Comment on above: Performed By: #### U CI #### [address] [address] UA Blood Negative Normal Negative [facility] Comment on above: Performed By: #### U CI #### [address] [address] UA Clarity Turbid Normal [facility] Comment on above: Performed By: #### U CI #### [address] [address] UA Glucose Normal Normal Negative [facility] Comment on above: Performed By: #### U CI #### [address] [address] UA Leukocyte Esterase 500 Abnormal Negative [facility] Comment on above: Performed By: #### U CI #### [address] [address] UA Nitrite Negative Normal Negative [facility] Comment on above: Performed By: #### U CI #### [address] [address] UA pH 5.0 Normal 4.5 - 7.8 [facility] Comment on above: Performed By: #### U CI #### [address] [address] UA Protein 30 mg/dL Abnormal Negative [facility] Comment on above: Performed By: #### U CI #### [address] [address] UA Source Catheter Normal [facility] Comment on above: Performed By: #### U CI #### [address] [address] UA Spec Grav 1.026 Normal 1.003-1.035 [facility] Comment on above: Performed By: #### U CI #### [address] [address] UA Urobilinogen Normal Normal 0.2 - 1.0 [facility] Comment on above: Performed By: #### U CI #### [address] [address] Urobilinogen (U) [Mass/Vol] Negative Normal Negative [facility] Comment on above: Performed By: #### U CI #### [address] [address] XR Chest 1 Viewon 10-09-2022 XR Chest [...] Electronically Signed in Other Vendor System) Normal [facility] Basic Metabolic Panelon 05-0 Anion gap [Moles/Vol] 10 mmol/L 9 - 17 mmol/L [facility] CHOBOLABS Calcium [Mass/Vol] 10.3 mg/dL 8.6 - 10.4 mg/dL [facility] Chloride [Moles/Vol] 116 mmol/L High 98 - 107 mmol/L [facility] [email or web address] CO2 [Moles/Vol] 29 mmol/L 20 - 31 mmol/L [facility] Creatinine [Mass/Vol] 0.94 mg/dL High 0.50 - 0.90 mg/dL [facility] GFR/1.73 sq M.predicted MDRD (S/P/Bld) [Vol rate/Area] - PINF [facility] Comment on above: These results [...] 144 mg/dL High 70 - 99 mg/dL [facility] Interpretation and review of laboratory results Abnormal [facility] Potassium [Moles/Vol] 3.3 mmol/L Low 3.7 - 5.3 mmol/L [facility] [employer] Sodium [Moles/Vol] 155 mmol/L High 135 - 144 mmol/L [facility] Urea nitrogen [Mass/Vol] 35 mg/dL High 8 - 23 mg/dL [facility] Urea nitrogen/Creatinin e (Bld) [Mass ratio] 37 High 9 - 20 [facility] Anion gap [Moles/Vol] 10 mmol/L 9 - 17 mmol/L [facility] Calcium [Mass/Vol] 10.5 mg/dL High 8.6 - 10.4 mg/dL [facility] Chloride [Moles/Vol] 116 mmol/L High 98 - 107 mmol/L [facility] CO2 [Moles/Vol] 29 mmol/L 20 - 31 mmol/L [facility] Creatinine [Mass/Vol] 0.87 mg/dL 0.50 - 0.90 mg/dL [facility] GFR/1.73 sq M.predicted MDRD (S/P/Bld) [Vol rate/Area] - PINF [facility] Comment on above: These results are not [...] 136 mg/dL High 70 - 99 mg/dL [facility] Interpretation and review of laboratory results Abnormal [facility] Potassium [Moles/Vol] 3.4 mmol/L Low 3.7 - 5.3 mmol/L [facility] Sodium [Moles/Vol] 155 mmol/L High 135 - 144 mmol/L [facility] Urea nitrogen [Mass/Vol] 35 mg/dL High 8 - 23 mg/dL [facility] Urea nitrogen/Creatinin e (Bld) [Mass ratio] 40 High 9 - 20 [facility] Anion gap [Moles/Vol] 11 mmol/L 9 - 17 mmol/L [facility] Calcium [Mass/Vol] 10.8 mg/dL High 8.6 - 10.4 mg/dL [facility] Chloride [Moles/Vol] 113 mmol/L High 98 - 107 mmol/L [facility] CO2 [Moles/Vol] 28 mmol/L 20 - 31 mmol/L [facility] Creatinine [Mass/Vol] 0.94 mg/dL High 0.50 - 0.90 mg/dL [facility] [email or web address] GFR/1.73 sq M.predicted MDRD (S/P/Bld) [Vol rate/Area] - PINF [facility] Comment on above: These results are not [...] 129 mg/dL High 70 - 99 mg/dL [facility] Interpretation and review of laboratory results Abnormal [facility] Potassium [Moles/Vol] 3.5 mmol/L Low 3.7 - 5.3 mmol/L [facility] Sodium [Moles/Vol] 152 mmol/L High 135 - 144 mmol/L [facility] Urea nitrogen [Mass/Vol] 38 mg/dL High 8 - 23 mg/dL [facility] Urea nitrogen/Creatinin e (Bld) [Mass ratio] 40 High 9 - 20 [facility] Anion gap [Moles/Vol] 9 mmol/L 9 - 17 mmol/L [facility] Calcium [Mass/Vol] 10.7 mg/dL High 8.6 - 10.4 mg/dL [facility] Chloride [Moles/Vol] 118 mmol/L High 98 - 107 mmol/L [facility] CO2 [Moles/Vol] 30 mmol/L 20 - 31 mmol/L [facility] Creatinine [Mass/Vol] 0.97 mg/dL High 0.50 - 0.90 mg/dL [facility] GFR/1.73 sq M.predicted MDRD (S/P/Bld) [Vol rate/Area] - PINF [facility] Comment on above: These results are not [...] [Mass/Vol] 78 mg/dL 70 - 99 mg/dL [facility] Interpretation and review of laboratory results Abnormal [facility] Potassium [Moles/Vol] 4.1 mmol/L 3.7 - 5.3 mmol/L [facility] Sodium [Moles/Vol] 157 mmol/L High 135 - 144 mmol/L [facility] Urea nitrogen [Mass/Vol] 37 mg/dL High 8 - 23 mg/dL [facility] Urea nitrogen/Creatinin e (Bld) [Mass ratio] 38 High 9 - 20 [facility] Basic Metabolic Profon 10-08 Anion gap [Moles/Vol] 10 mmol/L Normal -17 [facility] Comment on above: Performed By: #### L IPR #### [place] [address] [place] [address] Almond Blancher Hand: Jersey Dahl MD #### CDP, CP #### [facility] [address] [place] [address] Almond Blancher Hand: Kayley Doll MD BUN/CRE Ratio 40 High 9-20 [facility] Comment on above: Performed By: #### L IPR #### [place] [address] [place] [address] Almond Blancher Hand: Jersey Dahl MD #### CDP, CP #### [facility] [address] [place] [address] Almond Blancher Hand: Kayley Doll MD Calcium [Mass/Vol] 10.5 mg/dL High 8.6-10.4 [facility] Comment on above: Performed By: #### L IPR #### [place] [place] [address] Almond Blancher Hand: Jersey Dahl MD #### CDP, CP #### [facility] [address] [place] [address] Dr. [place], [place] [id number] Almond Blancher Hand: Kayley Doll MD Chloride [Moles/Vol] 116 mmol/L High 98-107 [facility] Comment on above: Performed By: #### L IPR #### [facility] [address] [place] [address] Almond Blancher Hand: Jersey Dahl MD #### CDP, CP #### [facility] [address] [place] [address] [place], [place] [id number] Almond Blancher Hand: Kayley Doll MD CO2 [Moles/Vol] 29 mmol/L Normal 20-31 [facility] Comment on above: Performed By: #### L IPR #### [address] [address] Almond Blancher Hand: Jersey Dahl MD #### CDP, CP #### [address] [place], [place] [id number] Almond Blancher Hand: Kayley Doll MD Creatinine [Mass/Vol] 0.87 mg/dL Normal 0.50-0.90 [facility] Comment on above: Performed By: #### L IPR #### [address] [address] Almond Blancher Hand: Jersey Dahl MD #### CDP, CP #### [address] [place], [place] [id number] Almond Blancher Hand: Kayley Doll MD GFR/1.73 sq M.predicted among non-blacks MDRD (S/P/Bld) [Vol rate/Area] mL/min/{1.73_m2} Normal >60 [facility] Comment on above: Result Comment: These [...] secretion. Performed By: #### L IPR #### [address] [address] Almond Blancher Hand: Jersey Dahl MD #### CDP, CP #### [facility] [address] [place] [address] Dr. [place], [place] [id number] Almond Blancher Hand: Kayley Doll MD Glucose [Mass/Vol] 136 mg/dL High 70-99 [facility] Comment on above: Performed By: #### L IPR #### [address] [address] Almond Blancher Hand: Jersey Dahl MD #### CDP, CP #### [address] [place] [id number] Almond Blancher Hand: Kayley Doll MD Potassium [Moles/Vol] 3.4 mmol/L Low 3.7-5.3 [facility] Comment on above: Performed By: #### L IPR #### [address] [address] Almond Blancher Hand: Jersey Dahl MD #### CDP, CP #### [address] [place], [place] 8229883 Almond Blancher Hand: Kayley Doll MD Sodium [Moles/Vol] 155 mmol/L High 135-144 [facility] Comment on above: Performed By: #### L IPR #### [address] [address] Almond Blancher Hand: Jersey Dahl MD #### CDP, CP #### [address] [place], [place] 5346083 Almond Blancher Hand: Kayley Doll MD Urea nitrogen [Mass/Vol] 35 mg/dL High 8-23 [facility] Comment on above: Performed By: #### L IPR #### [address] [address] Almond Blancher Hand: Jersey Dahl MD #### CDP, CP #### [facility] [address] [place], [place] [phone] Almond Blancher Hand: Kayley Doll MD Anion gap [Moles/Vol] 11 mmol/L Normal 9-17 [facility] Comment on above: Performed By: #### L IPR #### [address] [address] Almond Blancher Hand: Jersey Dahl MD #### CDP, CP #### [facility] [address] [place] [address] Almond Blancher Hand: Kayley Doll MD BUN/CRE Ratio 40 High 9-20 [facility] Comment on above: Performed By: #### L IPR #### [address] [address] Almond Blancher Hand: Jersey Dahl MD #### CDP, CP #### [facility] [address] [place], [place] [id number] Almond Blancher Hand: Kayley Doll MD Calcium [Mass/Vol] 10.8 mg/dL High 8.6-10.4 [facility] Comment on above: Performed By: #### L IPR #### [address] [address] Almond Blancher Hand: Jersey Dahl MD #### CDP, CP #### [facility] [address] [place], [place] [id number] Almond Blancher Hand: Kayley Doll MD Chloride [Moles/Vol] 113 mmol/L High 98-107 [facility] Comment on above: Performed By: #### L IPR #### [address] [address] Almond Blancher Hand: Jersey Dahl MD #### CDP, CP #### [facility] [address] [place], [place] [id number] Almond Blancher Hand: Kayley Doll MD CO2 [Moles/Vol] 28 mmol/L Normal 20-31 [facility] Comment on above: Performed By: #### L IPR #### [facility] [address] [place] [address] Almond Blancher Hand: Jersey Dahl MD #### CDP, CP #### [facility] [address] [place], [place] [phone] Almond Blancher Hand: Kayley Doll MD Creatinine [Mass/Vol] 0.94 mg/dL High 0.50-0.90 [facility] Comment on above: Performed By: #### L IPR #### [address] [address] Almond Blancher Hand: Jersey Dahl MD #### CDP, CP #### [address] [place], [place] 0693[address] Almond Blancher Hand: Kayley Doll MD GFR/1.73 sq M.predicted among non-blacks MDRD (S/P/Bld) [Vol rate/Area] mL/min/{1.73_m2} Normal >60 [facility] Comment on above: Result Comment: These [...] secretion. Performed By: #### L IPR #### [facility] [address] [place] [address] Almond Blancher Hand: Jersey Dahl MD #### CDP, CP #### [address] [place], [place] 7262383 Almond Blancher Hand: Kayley Doll MD Glucose [Mass/Vol] 129 mg/dL High 70-99 [facility] Comment on above: Performed By: #### L IPR #### [facility] [address] [place] [address] Almond Blancher Hand: Jersey Dahl MD #### CDP, CP #### [facility] [address] [place], [place] 8426083 Almond Blancher Hand: Kayley Doll MD Potassium [Moles/Vol] 3.5 mmol/L Low 3.7-5.3 [facility] Comment on above: Performed By: #### L IPR #### [facility] [address] [place] [address] Almond Blancher Hand: Jersey Dahl MD #### CDP, CP #### [facility] [address] [place] [address] [place] [address] Almond Blancher Hand: Kayley Doll MD Sodium [Moles/Vol] 152 mmol/L High 135-144 [facility] Comment on above: Performed By: #### L IPR #### [address] [address] Almond Blancher Hand: Jersey Dahl MD #### CDP, CP #### [facility] [address] [place] [address] Dr. [place], [place] 1887183 Almond Blancher Hand: Kayley Doll MD Urea nitrogen [Mass/Vol] 38 mg/dL High 8-23 [facility] Comment on above: Performed By: #### L IPR #### [facility] [address] [place] [address] Almond Blancher Hand: Jersey Dahl MD #### CDP, CP #### [facility] [address] [place], [place] 5693683 Almond Blancher Hand: Kayley Doll MD Anion gap [Moles/Vol] 9 mmol/L Normal 9-17 [facility] Comment on above: Performed By: #### L IPR #### [address] [address] Almond Blancher Hand: Jersey Dahl MD #### CDP, CP #### [facility] [address] [place], [place] 1926883 Almond Blancher Hand: Kayley Doll MD BUN/CRE Ratio 38 High 9-20 [facility] Comment on above: Performed By: #### L IPR #### [address] [address] Almond Blancher Hand: Jersey Dahl MD #### CDP, CP #### [facility] [address] [place], [place] 5497783 Almond Blancher Hand: Kayley Doll MD Calcium [Mass/Vol] 10.7 mg/dL High 8.6-10.4 [facility] Comment on above: Performed By: #### L IPR #### [address] [address] Almond Blancher Hand: Jersey Dahl MD #### CDP, CP #### [facility] [address] [place], [place] [phone] Almond Blancher Hand: Kayley Doll MD Chloride [Moles/Vol] 118 mmol/L High 98-107 [facility] Comment on above: Performed By: #### L IPR #### [address] [address] Almond Blancher Hand: Jersey Dahl MD #### CDP, CP #### [facility] [address] [place], [place] [phone] Almond Blancher Hand: Kayley Doll MD CO2 [Moles/Vol] 30 mmol/L Normal 20-31 [facility] Comment on above: Performed By: #### L IPR #### [address] [address] Almond Blancher Hand: Jersey Dahl MD #### CDP, CP #### [facility] [address] [place] [address] Dr. [place], [place] [phone] Almond Blancher Hand: Kayley Doll MD Creatinine [Mass/Vol] 0.97 mg/dL High 0.50-0.90 [facility] Comment on above: Performed By: #### L IPR #### [address] [address] Almond Blancher Hand: Jersey Dahl MD #### CDP, CP #### [address] [place], [place] [id number] Almond Blancher Hand: Kayley Doll MD GFR/1.73 sq M.predicted among non-blacks MDRD (S/P/Bld) [Vol rate/Area] mL/min/{1.73_m2} Normal >60 [facility] Comment on above: Result Comment: These [...] secretion. Performed By: #### L IPR #### [address] [address] Almond Blancher Hand: Jersey Dahl MD #### CDP, CP #### [address] [place], [place] 1910783 Almond Blancher Hand: Kayley Doll MD Glucose [Mass/Vol] 78 mg/dL Normal 70-99 [facility] Comment on above: Performed By: #### L IPR #### [address] [address] Almond Blancher Hand: Jersey Dahl MD #### CDP, CP #### [address] [place], [place] 6207783 Almond Blancher Hand: Kayley Doll MD Potassium [Moles/Vol] 4.1 mmol/L Normal 3.7-5.3 [facility] Comment on above: Performed By: #### L IPR #### [facility] [address] [place] [address] Almond Blancher Hand: Jersey Dahl MD #### CDP, CP #### [facility] [address] [place] [address] Dr[address] [place] [address] Almond Blancher Hand: Kayley Doll MD Sodium [Moles/Vol] 157 mmol/L High 135-144 [facility] Comment on above: Performed By: #### L IPR #### [address] [place] [address] Almond Blancher Hand: Jersey Dahl MD #### CDP, CP #### [facility] [address] [place] [address] Dr. [place] [address] Almond Blancher Hand: Kayley Doll MD Urea nitrogen [Mass/Vol] 37 mg/dL High 8-23 [facility] Comment on above: Performed By: #### L IPR #### [facility] [address] [place] [address] Almond Blancher Hand: Jersey Dahl MD #### CDP, CP #### [facility] [address] [place] [address] [place] [phone] Almond Blancher Hand: Kayley Doll MD CBC with Auto Differentialon 10-08-2022 Absolute Eos # 0.06 [facility] Absolute Immature Granulocyte 0.03 [facility] Absolute Lymph # 0.68 Low [facility] Absolute Assumption # 0.32 [facility] Basophils (Bld) [#/Vol] 0.03 10*3/uL [facility] Basophils/100 WBC (Bld) 0 % 0 - 2 % [facility] Eosinophils/100 WBC (Bld) 1 % 1 - 4 % [facility] Hematocrit (Bld) [Volume fraction] 35.0 % Low 36.3 - 47.1 % [facility] Hemoglobin (Bld) [Mass/Vol] 11.0 g/dL Low 11.9 - 15.1 g/dL [facility] Immature granulocytes/100 [facility] (Bld) 0 % 0 [facility] Interpretation and review of laboratory results Abnormal [facility] Lymphocytes/100 WBC (Bld) 10 % Low 24 - 43 % [facility] MCH (RBC) [Entitic mass] 30.9 pg 25.2 - 33.5 pg [facility] MCHC (RBC) [Mass/Vol] 31.4 g/dL 28.4 - 34.8 g/dL [facility] MCV (RBC) [Entitic vol] 98.3 fL 82.6 - 102.9 fL [facility] Monocytes/100 WBC (Bld) 5 % 3 - 12 % [facility] NRBC Automated 0.0 0.0 per 100 WBC [facility] Platelet distribution width (Bld) [Ratio] 15.5 % High 11.8 - 14.4 % [facility] Platelet mean volume (Bld) [Entitic vol] 10.2 fL 8.1 - 13.5 fL [facility] Platelets (Bld) [#/Vol] 203 10*3/uL [facility] RBC (Bld) [#/Vol] 3.56 10*6/uL Low 3.95 - 5.11 m/uL [facility] Segmented neutrophils/100 WBC (Bld) 84 % High 36 - 65 % [facility] Segs Absolute 5.86 [facility] WBC (Bld) [#/Vol] 7.0 10*3/uL [facility] [place] [facility] CBC with Diffon 10-08-2022 Abs. Basophil 0.03 k/uL Normal 0.00-0.20 [facility] Comment on above: Performed By: #### L IPR #### [facility] [employer] [facility] [place] [address] Almond Blancher Hand: Jersey Dahl MD #### MARLIN, SARTHAK #### [facility] [address] [place] [id number] Almond Blancher Hand: Kayley Doll MD Abs.Imm.Granulocyt e 0.03 k/uL Normal 0.00-0.30 [facility] Comment on above: Performed By: #### L IPR #### [address] [address] Almond Blancher Hand: Jersey Dahl MD #### CDP, CP #### [address] [place] [phone] Almond Blancher Hand: Kayley Doll MD Abs.Neutrophil (Seg) 5.86 k/uL Normal 1.50-8.10 [facility] Comment on above: Performed By: #### L IPR #### [address] [address] Almond Blancher Hand: Jersey Dahl MD #### CDP, CP #### [address] [place] [id number] Almond Blancher Hand: Kayley Doll MD Basophils/100 WBC (Bld) 0 % Normal 0-2 [facility] Comment on above: Performed By: #### L IPR #### [address] [address] Almond Blancher Hand: Jersey Dahl MD #### CDP, CP #### [address] [place] [address] Almond Blancher Hand: Kayley Doll MD Eosinophils (Bld) [#/Vol] 0.06 10*3/uL Normal 0.00-0.44 [facility] Comment on above: Performed By: #### L IPR #### [address] [address] Almond Blancher Hand: Jersey Dahl MD #### CDP, CP #### [address] [place] [phone] Almond Blancher Hand: Kayley Doll MD Eosinophils/100 WBC (Bld) 1 % Normal 1-4 [facility] Comment on above: Performed By: #### L IPR #### [address] [address] Almond Blancher Hand: Jersey Dahl MD #### CDP, CP #### [facility] [address] [place] [address] [place] [address] Almond Blancher Hand: Kayley Doll MD Erythrocyte distribution width (RBC) [Ratio] 15.5 % High 11.8-14.4 [facility] Comment on above: Performed By: #### L IPR #### [address] [address] Almond Blancher Hand: Jersey Dahl MD #### CDP, CP #### [address] [place] [phone] Almond Blancher Hand: aKyley Doll MD Hematocrit (Bld) [Volume fraction] 35.0 % Low 36.3-47.1 [facility] Comment on above: Performed By: #### L IPR #### [address] [address] Almond Blancher Hand: Jersey Dahl MD #### CDP, CP #### [address] [place] [phone] Almond Blancher Hand: Kayley Doll MD Hemoglobin (Bld) [Mass/Vol] 11.0 g/dL Low 11.9-15.1 [facility] Comment on above: Performed By: #### L IPR #### [address] [address] Almond Blancher Hand: Jersey Dahl MD #### CDP, CP #### [address] [place] [phone] Almond Blancher Hand: Kayley Doll MD Immature granulocytes/100 WBC (Bld) 0 % Normal 0 [facility] Comment on above: Performed By: #### L IPR #### [facility] [address] [place] [address] Almond Blancher Hand: Jersey Dahl MD #### CDP, CP #### [facility] [address] [place], [place] [phone] Almond Blancher Hand: Kayley Doll MD Lymphocytes (Bld) [#/Vol] 0.68 10*3/uL Low 1.10-3.70 [facility] Comment on above: Performed By: #### L IPR #### [address] [address] Almond Blancher Hand: Jersey Dahl MD #### CDP, CP #### [facility] [address] [place], [place] [phone] Almond Blancher Hand: Kayley Doll MD Lymphocytes/100 WBC (Bld) 10 % Low 24-43 [facility] Comment on above: Performed By: #### L IPR #### [address] [address] Almond Blancher Hand: Jersey Dahl MD #### CDP, CP #### [facility] [address] [place] [address] Dr. [place], [place] [phone] Almond Blancher Hand: Kayley Doll MD MCH (RBC) [Entitic mass] 30.9 pg Normal 25.2-33.5 [facility] Comment on above: Performed By: #### L IPR #### [facility] [address] [place] [address] Almond Blancher Hand: Jersey Dahl MD #### CDP, CP #### [facility] [address] [place], [place] [id number] Almond Blancher Hand: Kayley Dlol MD MCHC (RBC) [Mass/Vol] 31.4 g/dL Normal 28.4-34.8 [facility] Comment on above: Performed By: #### L IPR #### [address] [address] Almond Blancher Hand: Jersey Dahl MD #### CDP, CP #### [address] [place] [address] Almond Blancher Hand: Kayley Doll MD MCV (RBC) [Entitic vol] 98.3 fL Normal 82.6-102.9 [facility] Comment on above: Performed By: #### L IPR #### [address] [address] Almond Blancher Hand: Jersey Dahl MD #### CDP, CP #### [address] [place], [place] 5895083 Almond Blancher Hand: Kayley Doll MD Monocytes (Bld) [#/Vol] 0.32 10*3/uL Normal 0.10-1.20 [facility] Comment on above: Performed By: #### L IPR #### [address] [address] Almond Blancher Hand: Jersey Dahl MD #### CDP, CP #### [address] [place], [place] [phone] Almond Blancher Hand: Kayley Doll MD Monocytes/100 WBC (Bld) 5 % Normal 3-12 [facility] Comment on above: Performed By: #### L IPR #### [address] [address] Almond Blancher Hand: Jersey Dahl MD #### CDP, CP #### [address] [place], [place] 0078183 Almond Blancher Hand: Kayley Doll MD Neutrophil (Seg) 84 % High 36-65 [facility] Comment on above: Performed By: #### L IPR #### [address] [address] Almond Blancher Hand: Jersey Dahl MD #### CDP, CP #### [facility] [address] [place], [place] [id number] Almond Blancher Hand: Kayley Doll MD NRBC Automated 0.0 per 100 WBC Normal 0.0 [facility] Comment on above: Performed By: #### L IPR #### [address] [address] Almond Blancher Hand: Jersey Dahl MD #### CDP, CP #### [facility] [address] [place] [phone] Almond Blancher Hand: Kayley Doll MD Platelet mean volume (Bld) [Entitic vol] 10.2 fL Normal 8.1-13.5 [facility] Comment on above: Performed By: #### L IPR #### [address] [address] Almond Blancher Hand: Jersey Dahl MD #### CDP, CP #### [facility] [address] [place] [address] Dr. [place], [place] [id number] Almond Blancher Hand: Kayley Doll MD Platelets (Bld) [#/Vol] 203 10*3/uL Normal 138-453 [facility] Comment on above: Performed By: #### L IPR #### [address] [address] Almond Blancher Hand: Jersey Dahl MD #### CDP, CP #### [facility] [address] [place] [address] [place], [place] [phone] Almond Blancher Hand: Kayley Doll MD RBC (Bld) [#/Vol] 3.56 10*6/uL Low 3.95-5.11 [facility] Comment on above: Performed By: #### L IPR #### [address] [address] Almond Blancher Hand: Jersey Dahl MD #### CDP, CP #### [facility] [address] [place] [address] Almond Blancher Hand: Kayley Doll MD WBC (Bld) [#/Vol] 7.0 10*3/uL Normal 3.5-11.3 [facility] Comment on above: Performed By: #### L IPR #### [place] [address] [place], [place] [id number] Almond Blancher Hand: Jersey Dahl MD #### CDP, CP #### [facility] [address] [place] [address] Almond Blancher Hand: Kayley Doll MD CT HEAD WO CONTRASTon [...] not a suspected or confirmed emergency medical condition->Emergen cy Medical Condition (MA) FINDINGS: BRAIN/VENTRICLES: There is [...] Jay Horn MD 10/08/22 Final result Normal [facility] CT Head WO Contraston 2022 No acute intracranial abnormality. [facility] RIS CONSOLIDATED EXAMINATION: CT OF THE HEAD [...] not a suspected or confirmed emergency medical condition->Emergen cy Medical Condition (MA) FINDINGS: BRAIN/VENTRICLES: There is [...] of the visualized skull or soft tissues. [facility] Jay Hardy MD - 10/08/2022 EXAMINATION: [...] not a suspected or confirmed emergency medical condition->Emergen cy Medical Condition (MA) FINDINGS: BRAIN/VENTRICLES: There is [...] soft tissues. IMPRESSION: No acute intracranial abnormality. [employer] Phone: Radiology Study observation (narrative) [employer] Phone: CT Head WO ContrastOrdered B y: Jay Horn on 10-08-2022 [employer] Phone: Comp Metabolic Profon 2022 Albumin [Mass/Vol] 4.4 g/dL Normal 3.5-5.2 [facility] Comment on above: Performed By: #### L IPR #### [place] [address] [place] [address] Almond Blancher Hand: Jersey Dahl MD #### CDP, CP #### [address] [place], [place] 7269083 Almond Blancher Hand: Kayley Doll MD Albumin/Glob Ratio 1.4 Normal 1.0-2.5 [facility] Comment on above: Performed By: #### L IPR #### [address] [address] Almond Blancher Hand: Jersey Dahl MD #### CDP, CP #### [facility] [address] [place] [address] Dr. [place], [place] [phone] Almond Blancher Hand: Kayley Doll MD Alkaline Phos 111 U/L High 35-104 [facility] Comment on above: Performed By: #### L IPR #### [address] [address] Almond Blancher Hand: Jersey Dahl MD #### CDP, CP #### [address] [place], [place] 5049383 Almond Blancher Hand: Kayley Doll MD ALT [Catalytic activity/Vol] 26 U/L Normal 5-33 [facility] Comment on above: Performed By: #### L IPR #### [address] [address] Almond Blancher Hand: Jersey Dahl MD #### CDP, CP #### [facility] [address] [place], [place] [phone] Almond Blancher Hand: Kayley Doll MD Anion gap [Moles/Vol] 12 mmol/L Normal 9-17 [facility] Comment on above: Performed By: #### L IPR #### [address] [address] Almond Blancher Hand: Jersey Dahl MD #### CDP, CP #### [facility] [address] [place], [place] [id number] Almond Blancher Hand: Kayley Doll MD AST [Catalytic activity/Vol] 23 U/L Normal <32 [facility] Comment on above: Performed By: #### L IPR #### [address] [address] Almond Blancher Hand: Jersey Dahl MD #### CDP, CP #### [facility] [address] [place] [address] Dr. [place], [place] [phone] Almond Blancher Hand: Kayley Doll MD Bilirubin [Mass/Vol] 0.9 mg/dL Normal 0.3-1.2 [facility] Comment on above: Performed By: #### L IPR #### [address] [address] Almond Blancher Hand: Jersey Dahl MD #### CDP, CP #### [facility] [address] [place] [address] Dr. [place], [place] 5583783 Almond Blancher Hand: Kayley Doll MD BUN/CRE Ratio 40 High 9-20 [facility] Comment on above: Performed By: #### L IPR #### [address] [address] Almond Blancher Hand: Jersey Dahl MD #### CDP, CP #### [facility] [address] [place], [place] 7354783 Almond Blancher Hand: Kayley Doll MD Calcium [Mass/Vol] 11.3 mg/dL High 8.6-10.4 [facility] Comment on above: Performed By: #### L IPR #### [address] [address] Almond Blancher Hand: Jersey Dahl MD #### CDP, CP #### [facility] [address] [place] [address] Almond Blancher Hand: Kayley Doll MD Chloride [Moles/Vol] 117 mmol/L High 98-107 [facility] Comment on above: Performed By: #### L IPR #### [address] [id number] Almond Blancher Hand: Jersey Dahl MD #### CDP, CP #### [facility] [address] [place] [address] Almond Blancher Hand: Kayley Doll MD CO2 [Moles/Vol] 29 mmol/L Normal 20-31 [facility] Comment on above: Performed By: #### L IPR #### [address] [id number] Almond Blancher Hand: Jersey Dahl MD #### CDP, CP #### [facility] [address] [place] [address] [place] [address] Almond Blancher Hand: Kayley Doll MD Creatinine [Mass/Vol] 0.97 mg/dL High 0.50-0.90 [facility] Comment on above: Performed By: #### L IPR #### [address] [address] Almond Blancher Hand: Jersey Dahl MD #### CDP, CP #### [facility] [address] [place] [address] [place] [address] Almond Blancher Hand: Kayley Doll MD GFR/1.73 sq M.predicted among non-blacks MDRD (S/P/Bld) [Vol rate/Area] mL/min/{1.73_m2} Normal >60 [facility] Comment on above: Result Comment: These [...] secretion. Performed By: #### L IPR #### [address] [address] Almond Blancher Hand: Jersey Dahl MD #### CDP, CP #### [address] [place], [place] 4615983 Almond Blancher Hand: Kayley Doll MD Glucose [Mass/Vol] 96 mg/dL Normal 70-99 [facility] Comment on above: Performed By: #### L IPR #### [address] [address] Almond Blancher Hand: Jersey Dahl MD #### CDP, CP #### [address] [place] [address]253883 Almond Blancher Hand: Kayley Doll MD Potassium [Moles/Vol] 4.1 mmol/L Normal 3.7-5.3 [facility] Comment on above: Performed By: #### L IPR #### [address] [address] Almond Blancher Hand: Jersey Dahl MD #### CDP, CP #### [address] [place] 0253883 Almond Blancher Hand: Kayley Doll MD Protein [Mass/Vol] 7.6 g/dL Normal 6.4-8.3 [facility] Comment on above: Performed By: #### L IPR #### [address] [address] Almond Blancher Hand: Jersey Dahl MD #### CDP, CP #### [address] [place], [place] 0250583 Almond Blancher Hand: Kayley Doll MD Sodium [Moles/Vol] 158 mmol/L High 135-144 [facility] Comment on above: Performed By: #### L IPR #### [facility] [address] [place], [place] [phone] Almond Blancher Hand: Jersey Dahl MD #### CDP, CP #### [facility] [address] [place] [address] Almond Blancher Hand: Kayley Doll MD Urea nitrogen [Mass/Vol] 39 mg/dL High 8-23 [facility] Comment on above: Performed By: #### L IPR #### [facility] [address] [place], [place] [phone] Almond Blancher Hand: Jersey Dahl MD #### CDP, CP #### [facility] [address] [place] [address] Almond Blancher Hand: Kayley Doll MD Comprehensive Metabolic Pane [facility] 10-08-2022 Albumin [Mass/Vol] 4.4 g/dL 3.5 - 5.2 g/dL [facility] Albumin/Globulin [Mass ratio] 1.4 {ratio} 1.0 - 2.5 [facility] ALP [Catalytic activity/Vol] 111 U/L High 35 - 104 U/L [facility] ALT [Catalytic activity/Vol] 26 U/L 5 - 33 U/L [facility] Anion gap [Moles/Vol] 12 mmol/L 9 - 17 mmol/L [facility] AST [Catalytic activity/Vol] 23 U/L NINF - 32 U/L [facility] Bilirubin [Mass/Vol] 0.9 mg/dL 0.3 - 1.2 mg/dL [facility] Calcium [Mass/Vol] 11.3 mg/dL High 8.6 - 10.4 mg/dL [facility] Chloride [Moles/Vol] 117 mmol/L High 98 - 107 mmol/L [facility] CO2 [Moles/Vol] 29 mmol/L 20 - 31 mmol/L [facility] Creatinine [Mass/Vol] 0.97 mg/dL High 0.50 - 0.90 mg/dL [facility] GFR/1.73 sq M.predicted MDRD (S/P/Bld) [Vol rate/Area] - [facility] Comment on above: These results are not [...] [Mass/Vol] 96 mg/dL 70 - 99 mg/dL [facility] Interpretation and review of laboratory results Abnormal [facility] Potassium [Moles/Vol] 4.1 mmol/L 3.7 - 5.3 mmol/L [facility] Protein [Mass/Vol] 7.6 g/dL 6.4 - 8.3 g/dL [facility] Sodium [Moles/Vol] 158 mmol/L High 135 - 144 mmol/L [facility] Urea nitrogen [Mass/Vol] 39 mg/dL High 8 - 23 mg/dL [facility] Urea nitrogen/Creatinin e (Bld) [Mass ratio] 40 High 9 - 20 [facility] Cult,Urineon 10-08-2022 Cult,Urine Specimen Description .VOIDED URINE Culture CITROBACTER FREUNDII >[id number] CFU/ML Report Status FINAL 10/07/2022 SUSCEPTIBILITY Organism CITROBACTER FREUNDII Method TIMOTHY Ceftriaxone <=0.25 SUSCEPTIBLE Gentamicin <=1 SUSCEPTIBLE Levofloxacin 1 SUSCEPTIBLE Nitrofurantoin <=16 SUSCEPTIBLE Piperacillin/Tazob actam <=4 SUSCEPTIBLE Tobramycin <=1 SUSCEPTIBLE Trimethoprim/Sulfa <=20 SUSCEPTIBLE Susceptible [facility] Comment on above: Performed By: #### L IPR #### [facility] [employer] [address] [place] [address] Almond Blancher Hand: Jersey Dahl MD #### SARTHAK ISAAC #### [facility] [address] [place] [address] Almond Blancher Hand: Kayley Doll MD EKG 12 LeadOrdered By: Nhan argueta on 10-08-2022 Atrial Rate 57 BPM [employer] Work Phone: P [place] 44 degrees [employer] Work Phone: P-R Interval 144 ms [employer] Work Phone: Q-T Interval 442 ms [employer] Work Phone: QRS Duration 78 ms [employer] Work Phone: QTc Calculation (Bazett) 430 ms [employer] Work Phone: R [place] 35 degrees [employer] Work Phone: T [place] 25 degrees [employer] Work Phone: Ventricular Rate 57 BPM [employer] Work Phone: [employer] Work Phone: EKG 12 Leadon 10-08-2022 Poor data quality, interpretation may be adversely affected Sinus bradycardia Otherwise normal ECG No previous ECGs available Confirmed by Nhan June MD ([id number]) on 10/08/2022 5:02:13 PM [facility] Nhan June MD - 10/08/2022 Poor data quality, interpretation may be adversely affected Sinus bradycardia Otherwise normal ECG No previous ECGs available Confirmed by Nhan June MD ([id number]) on 10/08/2022 5:02:13 PM [employer] Work Phone: Glucose, Whole Bloodon 10-08 Glucose [Mass/Vol] 94 mg/dL 74 - 100 mg/dL [facility] Urinalysison Bacteria, UA 3+ Abnormal None [employer] Epithelial Cells UA 0 TO 2 [employer] Interpretation and review of laboratory results Abnormal [employer] RBC clumps Auto (Urine sed) [#/Area] 0 TO 2 [facility] WBC, UA GREATER THAN 100 [facility] UA w/Reflex Cultureon 2022 Bilirubin, SemiQt,Ur Negative Normal NEG [facility] Comment on above: Performed By: #### L IPR #### [address] [address] Almond Blancher Hand: Jersey Dahl MD #### CDP, CP #### [facility] [address] [place] [address] Dr. [place], [place] [phone] Almond Blancher Hand: Kayley Doll MD Blood, Urine 1+ Abnormal NEG [facility] Comment on above: Performed By: #### L IPR #### [address] [address] Almond Blancher Hand: Jersey Dahl MD #### CDP, CP #### [address] [place], [place] 9685483 Almond Blancher Hand: Kayley Doll MD Clarity (U) Clear Normal CLEAR [facility] Comment on above: Performed By: #### L IPR #### [address] [address] Almond Blancher Hand: Jersey Dahl MD #### CDP, CP #### [address] [place], [place] 7359383 Almond Blancher Hand: Kayley Doll MD Color (U) Yellow Normal YEL [facility] Comment on above: Performed By: #### L IPR #### [address] [address] Almond Blancher Hand: Jersey Dahl MD #### CDP, CP #### [address] [place], [place] 5845183 Almond Blancher Hand: Kayley Doll MD Glucose Ql (U) Negative Normal NEG [facility] Comment on above: Performed By: #### L IPR #### [address] [address] Almond Blancher Hand: Jersey Dahl MD #### CDP, CP #### [facility] [address] [place] [address] Dr. [place], [place] [phone] Almond Blancher Hand: Kayley Doll MD Ketones Ql (U) 2+ Abnormal NEG [facility] Comment on above: Performed By: #### L IPR #### [address] [address] Almond Blancher Hand: Jersey Dahl MD #### CDP, CP #### [address] [place], [place] 6233583 Almond Blancher Hand: Kayley Doll MD Leukocyte esterase Test strip Ql (U) MODERATE Abnormal NEG [facility] Comment on above: Performed By: #### L IPR #### [address] [address] Almond Blancher Hand: Jersey Dahl MD #### CDP, CP #### [address] [place], [place] 9631183 Almond Blancher Hand: Kayley Doll MD Nitrite,Ur Positive Abnormal NEG [facility] Comment on above: Performed By: #### L IPR #### [address] [address] Almond Blancher Hand: Jersey Dahl MD #### CDP, CP #### [facility] [address] [place] [address] Dr. [place], [place] [phone] Almond Blancher Hand: Kayley Doll MD PH,Ur 6.0 Normal 5.0-9.0 [facility] Comment on above: Performed By: #### L IPR #### [address] [address] Almond Blancher Hand: Jersey Dahl MD #### CDP, CP #### [address] [place], [place] 0911283 Almond Blancher Hand: Kayley Doll MD Protein Ql (U) TRACE Abnormal NEG [facility] Comment on above: Performed By: #### L IPR #### [facility] [address] [place] [address] Almond Blancher Hand: Jersey Dahl MD #### CDP, CP #### [address] [place], [place] 6860683 Almond Blancher Hand: Kayley Doll MD Spec. [place],Ur >1.030 High 1.010-1.020 [facility] Comment on above: Performed By: #### L IPR #### [address] [address] Almond Blancher Hand: Jersey Dahl MD #### CDP, CP #### [address] [place], [place] 9444483 Almond Blancher Hand: Kayley Doll MD Urobilinogen,Ur Normal Normal NORM [facility] Comment on above: Performed By: #### L IPR #### [address] [address] Almond Blancher Hand: Jersey Dahl MD #### CDP, CP #### [address] [place], [place] 08[address]83 Almond Blancher Hand: Kayley Doll MD Urinalysis with Reflex to Cu ltureon 10-08-2022 Bilirubin Urine Negative NEGATIVE [facility] Color, UA Yellow Yellow [facility] Glucose Auto test strip (U) [Mass/Vol] Negative NEGATIVE [facility] Interpretation and review of laboratory results Abnormal [facility] Ketones (U) [Mass/Vol] 2+ Abnormal NEGATIVE [facility] Leukocyte esterase Auto test strip Ql (U) MODERATE Abnormal NEGATIVE [facility] Nitrite Auto test strip Ql (U) Positive Abnormal NEGATIVE [facility] Protein (U) [Mass/Vol] 6.0 mg/dL 5.0 - 9.0 [facility] Protein (U) [Mass/Vol] TRACE Abnormal NEGATIVE [facility] Specific [place], UA High 1.010 - 1.020 [facility] Turbidity UA Clear Clear [facility] Urine Hgb 1+ Abnormal NEGATIVE [facility] Urobilinogen, Urine Normal Normal [facility] Urinalysis,Microon 3 Bacteria 3+ Abnormal NONE [facility] Comment on above: Performed By: #### L IPR #### [address] [address] Almond Blancher Hand: Jersey Dahl MD #### CDP, CP #### [facility] [address] [place] [address] [place] [address] Almond Blancher Hand: Kayley Doll MD Epithelial cells LM Ql (Urine sed) 0 TO 2 Normal 0-25 [facility] Comment on above: Performed By: #### L IPR #### [address] [address] Almond Blancher Hand: Jersey Dahl MD #### CDP, CP #### [facility] [address] [place] [address] [place] [address] Almond Blancher Hand: Kayley Doll MD Urine RBC's 0 TO 2 Normal 0-2 [facility] Comment on above: Performed By: #### L IPR #### [address] [address] Almond Blancher Hand: Jersey Dahl MD #### CDP, CP #### [facility] [address] [place] [address] [place] [address] Almond Blancher Hand: Kayley Doll MD Urine WBC's GREATER THAN 100 Normal 0-5 [facility] Comment on above: Performed By: #### L IPR #### [address] [address] Almond Blancher Hand: Jersey Dahl MD #### CDP, CP #### [facility] [address] [place] [address] [place] [address] Almond Blancher Hand: Kayley Doll MD Urinalysis, Routineon 2022 Bilirubin, SemiQt,Ur Negative Normal NEG [facility] Comment on above: Performed By: #### L IPR #### [address] [address] Almond Blancher Hand: Jersey Dahl MD #### CDP, CP #### [address] [place] [place] [address] Almond Blancher Hand: Kayley Doll MD Blood, Urine Negative Normal NEG [facility] Comment on above: Performed By: #### L IPR #### [address] [address] Almond Blancher Hand: Jersey Dahl MD #### CDP, CP #### [address] [place] [phone] Almond Blancher Hand: Kayley Doll MD Clarity (U) Turbid Abnormal CLEAR [facility] Comment on above: Performed By: #### L IPR #### [address] [address] Almond Blancher Hand: Jersey Dahl MD #### CDP, CP #### [address] [place], [facility] Almond Blancher Hand: Kayley Doll MD Color (U) Yellow Normal YEL [facility] Comment on above: Performed By: #### L IPR #### [address] [address] Almond Blancher Hand: Jersey Dahl MD #### CDP, CP #### [address] [place], [place] [id number] Almond Blancher Hand: Kayley Doll MD Glucose Ql (U) Negative Normal NEG [facility] Comment on above: Performed By: #### L IPR #### [address] [address] Almond Blancher Hand: Jersey Dahl MD #### CDP, CP #### [facility] [address] [place] [address] Dr. [place], [place] [id number] Almond Blancher Hand: Kayley Doll MD Ketones Ql (U) 1+ Abnormal NEG [facility] Comment on above: Performed By: #### L IPR #### [address] [address] Almond Blancher Hand: Jersey Dahl MD #### CDP, CP #### [facility] [address] [place] [address] Dr. [place], [place] [id number] Almond Blancher Hand: Kayley Doll MD Leukocyte esterase Test strip Ql (U) Negative Normal NEG [facility] Comment on above: Performed By: #### L IPR #### [address] [address] Almond Blancher Hand: Jersey Dahl MD #### CDP, CP #### [address] [place], [place] 8581383 Almond Blancher Hand: Kayley Doll MD Nitrite,Ur Positive Abnormal NEG [facility] Comment on above: Performed By: #### L IPR #### [address] [address] Almond Blancher Hand: Jersey Dahl MD #### CDP, CP #### [facility] [address] [place] [address] [place] [address] Almond Blancher Hand: Kayley Doll MD PH,Ur 6.0 Normal 5.0-9.0 [facility] Comment on above: Performed By: #### L IPR #### [address] [address] Almond Blancher Hand: Jersey Dahl MD #### CDP, CP #### [address] [place], [place] 4706583 Almond Blancher Hand: Kayley Doll MD Protein Ql (U) Negative Normal NEG [facility] Comment on above: Performed By: #### L IPR #### [address] [address] Almond Blancher Hand: Jersey Dahl MD #### CDP, CP #### [address] [place] [place] [address] Almond Blancher Hand: Kayley Doll MD Spec. [place],Ur >1.030 High 1.010-1.020 [facility] Comment on above: Performed By: #### L IPR #### [address] [address] Almond Blancher Hand: Jersey Dahl MD #### CDP, CP #### [address] [place] [address] Almond Blancher Hand: Kayley Doll MD Urobilinogen,Ur Normal Normal NORM [facility] Comment on above: Performed By: #### L IPR #### [address] [address] Almond Blancher Hand: Jersey Dahl MD #### CDP, CP #### [address] [place] [place] [address] Almond Blancher Hand: Kayley Doll MD Urinalysis,Microon 3 Amorphous sediment LM Ql (Urine sed) 3+ Abnormal NONE [facility] Comment on above: Performed By: #### L IPR #### [address] [address] Almond Blancher Hand: Jersey Dahl MD #### CDP, CP #### [address] [place] [address] Almond Blancher Hand: Kayley Doll MD Bacteria 2+ Abnormal NONE [facility] Comment on above: Performed By: #### L IPR #### [address] [place] [address] Almond Blancher Hand: Jersey Dahl MD #### CDP, CP #### [facility] [address] [place] [address] Dr. [place], [place] [id number] Almond Blancher Hand: Kayley Doll MD Epithelial cells LM Ql (Urine sed) None Normal 0-25 [facility] Comment on above: Performed By: #### L IPR #### [address] [address] Almond Blancher Hand: Jersey Dahl MD #### CDP, CP #### [facility] [address] [place] [address] Dr. [place], [place] [phone] Almond Blancher Hand: Kayley Doll MD Urine RBC's None Normal 0-2 [facility] Comment on above: Performed By: #### L IPR #### [address] [address] Almond Blancher Hand: Jersey Dahl MD #### CDP, CP #### [address] [place], [place] 1567183 Almond Blancher Hand: Kayley Doll MD Urine WBC's 0 TO 2 Normal 0-5 [facility] Comment on above: Performed By: #### L IPR #### [address] [address] Almond Blancher Hand: Jersey Dahl MD #### CDP, CP #### [facility] [address] [place] [address] Dr. [place], [place] [phone] Almond Blancher Hand: Kayley Doll MD Lipid Panelon 10-05-2022 Cholesterol [Mass/Vol] 199 mg/dL NINF - 200 mg/dL [facility] Comment on above: Cholesterol Guidelines: <200 Desirable 200-240 Borderline >240 Undesirable Cholesterol in HDL [Mass/Vol] 107 mg/dL 40 - PINF mg/dL [facility] Comment on above: HDL Guidelines: <40 Undesirable 40-59 Borderline >59 Desirable Cholesterol in LDL [Mass/Vol] 73 mg/dL 0 - 130 mg/dL [facility] Comment on above: LDL Guidelines: <100 Desirable 100-129 Near to/above Desirable 130-159 Borderline >159 Undesirable Direct (measured) LDL and calculated LDL are not interchangeable tests. Cholesterol.total/ Cholesterol in HDL [Mass ratio] 1.9 {ratio} NINF - 5 [facility] Triglyceride [Mass/Vol] 93 mg/dL NINF - 150 mg/dL [facility] Comment on above: Triglyceride Guidelines: <150 Desirable 150-199 Borderline 200-499 High >499 Very high Based on AHA Guidelines for fasting triglyceride, March 2012. [facility] Lipid Profileon 10-05-2022 Cholesterol [Mass/Vol] 199 mg/dL Normal <200 [facility] Comment on above: Result Comment: Cholesterol Guidelines: <200 Desirable 200-240 Borderline >240 Undesirable Performed By: #### L IPR #### [address] [address] Almond Blancher Hand: Jersey Dahl MD #### CDP, CP #### [facility] [address] [place] [address] [place] [address] Almond Blancher Hand: Kayley Doll MD Cholesterol in HDL [Mass/Vol] 107 mg/dL Normal >40 [facility] Comment on above: Result Comment: HDL Guidelines: <40 Undesirable 40-59 Borderline >59 Desirable Performed By: #### L IPR #### [address] [address] Almond Blancher Hand: Jersey Dahl MD #### CDP, CP #### [facility] [address] [place] [address] [place] [address] Almond Blancher Hand: Kayley Doll MD Cholesterol in LDL [Mass/Vol] 73 mg/dL Normal 0-130 [facility] Comment on above: Result Comment: LDL Guidelines: <100 Desirable 100-129 Near to/above Desirable 130-159 Borderline >159 Undesirable Direct (measured) LDL and calculated LDL are not interchangeable tests. Performed By: #### L IPR #### [address] [place] [address] Almond Blancher Hand: Jersey Dahl MD #### CDP, CP #### [facility] [address] [place] [address] Dr. [place] [phone] Almond Blancher Hand: Kayley Doll MD Cholesterol.total/ Cholesterol in HDL [Mass ratio] 1.9 {ratio} Normal <5 [facility] Comment on above: Performed By: #### L IPR #### [address] [address] Almond Blancher Hand: Jersey Dahl MD #### CDP, CP #### [address] [place] 0253883 Almond Blancher Hand: Kayley Doll MD Triglyceride [Mass/Vol] 93 mg/dL Normal <150 [facility] Comment on above: Result Comment: Triglyceride Guidelines: <150 Desirable 150-199 Borderline 200-499 High >499 Very high Based on AHA Guidelines for fasting triglyceride, March 2012. Performed By: #### L IPR #### [address] [place] [address] Almond Blancher Hand: Jersey Dahl MD #### CDP, CP #### [facility] [address] [place] [address] Dr. [place] [phone] Almond Blancher Hand: Kayley Doll MD CBC with Auto Differentialon 10-04-2022 Absolute Eos # 0.14 [facility] Absolute Immature Granulocyte [facility] Absolute Lymph # 0.95 Low [facility] Absolute Assumption # 0.50 [facility] Basophils (Bld) [#/Vol] 0.03 10*3/uL [facility] Basophils/100 WBC (Bld) 1 % 0 - 2 % [facility] Eosinophils/100 WBC (Bld) 2 % 1 - 4 % [facility] Hematocrit (Bld) [Volume fraction] 32.9 % Low 36.3 - 47.1 % [facility] Hemoglobin (Bld) [Mass/Vol] 10.5 g/dL Low 11.9 - 15.1 g/dL [facility] Immature granulocytes/100 WBC (Bld) 0 % 0 [facility] Interpretation and review of laboratory results Abnormal [facility] Lymphocytes/100 WBC (Bld) 15 % Low 24 - 43 % [facility] MCH (RBC) [Entitic mass] 31.3 pg 25.2 - 33.5 pg [facility] MCHC (RBC) [Mass/Vol] 31.9 g/dL 28.4 - 34.8 g/dL [facility] MCV (RBC) [Entitic vol] 97.9 fL 82.6 - 102.9 fL [facility] Monocytes/100 WBC (Bld) 8 % 3 - 12 % [facility] NRBC Automated 0.0 0.0 per 100 WBC [facility] Platelet distribution width (Bld) [Ratio] 15.6 % High 11.8 - 14.4 % [facility] Platelet mean volume (Bld) [Entitic vol] 9.7 fL 8.1 - 13.5 fL [facility] Platelets (Bld) [#/Vol] 148 10*3/uL [facility] RBC (Bld) [#/Vol] 3.36 10*6/uL Low 3.95 - 5.11 m/uL [facility] Segmented neutrophils/100 WBC (Bld) 74 % High 36 - 65 % [facility] Segs Absolute 4.83 [facility] WBC (Bld) [#/Vol] 6.5 10*3/uL [facility] CBC with Diffon 10-04-2022 Abs. Basophil 0.03 k/uL Normal 0.00-0.20 [facility] Comment on above: Performed By: #### L IPR #### [facility] [place] [address] Almond Blancher Hand: Jersey Dahl MD #### CDP, CP #### [address] [place] [phone] Almond Blancher Hand: Kayley Doll MD Abs.Imm.Granulocyt e <0.03 Normal 0.00-0.30 [facility] Comment on above: Performed By: #### L IPR #### [address] [address] Almond Blancher Hand: Jersey Dahl MD #### CDP, CP #### [address] [place] 0253883 Almond Blancher Hand: Kayley Doll MD Abs.Neutrophil (Seg) 4.83 k/uL Normal 1.50-8.10 [facility] Comment on above: Performed By: #### L IPR #### [place] [address] Almond Blancher Hand: Jersey Dahl MD #### CDP, CP #### [address] [place] [phone] Almond Blancher Hand: Kayley Doll MD Basophils/100 WBC (Bld) 1 % Normal 0-2 [facility] Comment on above: Performed By: #### L IPR #### [address] [address] Almond Blancher Hand: Jersey Dahl MD #### CDP, CP #### [address] [place] 0253883 Almond Blancher Hand: Kayley Doll MD Eosinophils (Bld) [#/Vol] 0.14 10*3/uL Normal 0.00-0.44 [facility] Comment on above: Performed By: #### L IPR #### [address] [address] Almond Blancher Hand: Jersey Dahl MD #### CDP, CP #### [address] [place], [place] 9003883 Almond Blancher Hand: Kayley Doll MD Eosinophils/100 WBC (Bld) 2 % Normal 1-4 [facility] Comment on above: Performed By: #### L IPR #### [address] [address] Almond Blancher Hand: Jersey Dahl MD #### CDP, CP #### [address] [place], [place] [phone] Almond Blancher Hand: Kayley Doll MD Erythrocyte distribution width (RBC) [Ratio] 15.6 % High 11.8-14.4 [facility] Comment on above: Performed By: #### L IPR #### [address] [address] Almond Blancher Hand: Jersey Dahl MD #### CDP, CP #### [address] [place], [place] 9285283 Almond Blancher Hand: Kayley Doll MD Hematocrit (Bld) [Volume fraction] 32.9 % Low 36.3-47.1 [facility] Comment on above: Performed By: #### L IPR #### [address] [address] Almond Blancher Hand: Jersey Dahl MD #### CDP, CP #### [address] [place], [place] 3378383 Almond Blancher Hand: Kayley Doll MD Hemoglobin (Bld) [Mass/Vol] 10.5 g/dL Low 11.9-15.1 [facility] Comment on above: Performed By: #### L IPR #### [address] [address] Almond Blancher Hand: Jersey Dahl MD #### CDP, CP #### [address] [place], [place] 8517283 Almond Blancher Hand: Kayley Doll MD Immature granulocytes/100 WBC (Bld) 0 % Normal 0 [facility] Comment on above: Performed By: #### L IPR #### [address] [place] [address] Almond Blancher Hand: Jersey Dahl MD #### CDP, CP #### [facility] [address] [place] [address] Dr. [place] [phone] Almond Blancher Hand: Kayley Doll MD Lymphocytes (Bld) [#/Vol] 0.95 10*3/uL Low 1.10-3.70 [facility] Comment on above: Performed By: #### L IPR #### [address] [phone] Almond Blancher Hand: Jersey Dahl MD #### CDP, CP #### [address] [place] [phone] Almond Blancher Hand: Kayley Doll MD Lymphocytes/100 WBC (Bld) 15 % Low 24-43 [facility] Comment on above: Performed By: #### L IPR #### [address] [address] Almond Blancher Hand: Jersey Dahl MD #### CDP, CP #### [address] [place] [phone] Almond Blancher Hand: Kayley Doll MD MCH (RBC) [Entitic mass] 31.3 pg Normal 25.2-33.5 [facility] Comment on above: Performed By: #### L IPR #### [address] [address] Almond Blancher Hand: Jersey Dahl MD #### CDP, CP #### [facility] [address] [place] [address] Dr. [place] [phone] Almond Blancher Hand: Kayley Doll MD MCHC (RBC) [Mass/Vol] 31.9 g/dL Normal 28.4-34.8 [facility] Comment on above: Performed By: #### L IPR #### [address] [address] Almond Blancher Hand: Jersey Dahl MD #### CDP, CP #### [facility] [address] [place] [address] Dr. [place], [place] [phone] Almond Blancher Hand: Kayley Doll MD MCV (RBC) [Entitic vol] 97.9 fL Normal 82.6-102.9 [facility] Comment on above: Performed By: #### L IPR #### [address] [address] Almond Blancher Hand: Jersey Dahl MD #### CDP, CP #### [facility] [address] [place] [address] Dr. [place] [phone] Almond Blancher Hand: Kayley Doll MD Monocytes (Bld) [#/Vol] 0.50 10*3/uL Normal 0.10-1.20 [facility] Comment on above: Performed By: #### L IPR #### [address] [address] Almond Blancher Hand: Jersey Dahl MD #### CDP, CP #### [address] [place] [address] Almond Blancher Hand: Kayley Doll MD Monocytes/100 WBC (Bld) 8 % Normal 3-12 [facility] Comment on above: Performed By: #### L IPR #### [address] [address] Almond Blancher Hand: Jersey Dahl MD #### CDP, CP #### [address] [place], [place] 1160283 Almond Blancher Hand: Kayley Doll MD Neutrophil (Seg) 74 % High 36-65 [facility] Comment on above: Performed By: #### L IPR #### [address] [address] Almond Blancher Hand: Jersey Dahl MD #### CDP, CP #### [address] [place], [place] 3937683 Almond Blancher Hand: Kayley Doll MD NRBC Automated 0.0 per 100 WBC Normal 0.0 [facility] Comment on above: Performed By: #### L IPR #### [address] [address] Almond Blancher Hand: Jersey Dahl MD #### CDP, CP #### [address] [place] [phone] Almond Blancher Hand: Kayley Doll MD Platelet mean volume (Bld) [Entitic vol] 9.7 fL Normal 8.1-13.5 [facility] Comment on above: Performed By: #### L IPR #### [address] [address] Almond Blancher Hand: Jersey Dahl MD #### CDP, CP #### [address] [place] [phone] Almond Blancher Hand: Kayley Doll MD Platelets (Bld) [#/Vol] 148 10*3/uL Normal 138-453 [facility] Comment on above: Performed By: #### L IPR #### [address] [address] Almond Blancher Hand: Jersey Dahl MD #### CDP, CP #### [address] [place] [phone] Almond Blancher Hand: Kayley Doll MD RBC (Bld) [#/Vol] 3.36 10*6/uL Low 3.95-5.11 [facility] Comment on above: Performed By: #### L IPR #### [address] [address] Almond Blancher Hand: Jersey Dahl MD #### CDP, CP #### [facility] [address] [place], [place] [phone] Almond Blancher Hand: Kayley Doll MD WBC (Bld) [#/Vol] 6.5 10*3/uL Normal 3.5-11.3 [facility] Comment on above: Performed By: #### L IPR #### [address] [address] Almond Blancher Hand: Jersey Dahl MD #### CDP, CP #### [address] [place] [phone] Almond Blancher Hand: Kayley Doll MD Comp Metabolic Profon 2022 Albumin [Mass/Vol] 3.9 g/dL Normal 3.5-5.2 [facility] Comment on above: Performed By: #### L IPR #### [address] [address] Almond Blancher Hand: Jersey Dahl MD #### CDP, CP #### [address] [place] [phone] Almond Blancher Hand: Kayley Doll MD Albumin/Glob Ratio 1.1 Normal 1.0-2.5 [facility] Comment on above: Performed By: #### L IPR #### [address] [address] Almond Blancher Hand: Jersey Dahl MD #### CDP, CP #### [facility] [address] [place] [phone] Almond Blancher Hand: Kayley Doll MD Alkaline Phos 99 U/L Normal 35-104 [facility] Comment on above: Performed By: #### L IPR #### [address] [address] Almond Blancher Hand: Jersey Dahl MD #### CDP, CP #### [facility] [address] [place], [place] 0273783 Almond Blancher Hand: Kayley Doll MD ALT [Catalytic activity/Vol] 27 U/L Normal 5-33 [facility] Comment on above: Performed By: #### L IPR #### [facility] [address] [place] [address] Almond Blancher Hand: Jersey Dahl MD #### CDP, CP #### [facility] [address] [place], [place] 7088083 Almond Blancher Hand: Kayley Doll MD Anion gap [Moles/Vol] 10 mmol/L Normal 9-17 [facility] Comment on above: Performed By: #### L IPR #### [address] [address] Almond Blancher Hand: Jersey Dahl MD #### CDP, CP #### [address] [place], [place] [phone] Almond Blancher Hand: Kayley Doll MD AST [Catalytic activity/Vol] 21 U/L Normal <32 [facility] Comment on above: Performed By: #### L IPR #### [address] [address] Almond Blancher Hand: Jersey Dahl MD #### CDP, CP #### [address] [place], [place] [phone] Almond Blancher Hand: Kayley Doll MD Bilirubin [Mass/Vol] 1.0 mg/dL Normal 0.3-1.2 [facility] Comment on above: Performed By: #### L IPR #### [address] [address] Almond Blancher Hand: Jersey Dahl MD #### CDP, CP #### [address] [place] [place] [address] Almond Blancher Hand: Kayley Doll MD BUN/CRE Ratio 40 High 9-20 [facility] Comment on above: Performed By: #### L IPR #### [facility] [address] [place] [address] Almond Blancher Hand: Jersey Dahl MD #### CDP, CP #### [facility] [address] [place], [place] 0107383 Almond Blancher Hand: Kayley Doll MD Calcium [Mass/Vol] 10.9 mg/dL High 8.6-10.4 [facility] Comment on above: Performed By: #### L IPR #### [address] [address] Almond Blancher Hand: Jersey Dahl MD #### CDP, CP #### [facility] [address] [place] [address] Dr. [place] [phone] Almond Blancher Hand: Kayley Doll MD Chloride [Moles/Vol] 110 mmol/L High 98-107 [facility] Comment on above: Performed By: #### L IPR #### [facility] [address] [place] [address] Almond Blancher Hand: Jersey Dahl MD #### CDP, CP #### [facility] [address] [place] [address] Dr. [place], [place] [phone] Almond Blancher Hand: Kayley Doll MD CO2 [Moles/Vol] 30 mmol/L Normal 20-31 [facility] Comment on above: Performed By: #### L IPR #### [facility] [address] [place] [address] Almond Blancher Hand: Jersey Dahl MD #### CDP, CP #### [facility] [address] [place] [address] Dr. [place], [place] [phone] Almond Blancher Hand: Kayley Doll MD Creatinine [Mass/Vol] 0.99 mg/dL High 0.50-0.90 [facility] Comment on above: Performed By: #### L IPR #### [address] [address] Almond Blancher Hand: Jersey Dahl MD #### CDP, CP #### [facility] [address] [place], [place] 4362483 Almond Blancher Hand: Kayley Doll MD GFR/1.73 sq M.predicted among non-blacks MDRD (S/P/Bld) [Vol rate/Area] mL/min/{1.73_m2} Normal >60 [facility] Comment on above: Result Comment: These [...] secretion. Performed By: #### L IPR #### [address] [address] Almond Blancher Hand: Jersey Dahl MD #### CDP, CP #### [address] [place] [address] Almond Blancher Hand: Kayley Doll MD Glucose [Mass/Vol] 80 mg/dL Normal 70-99 [facility] Comment on above: Performed By: #### L IPR #### [address] [address] Almond Blancher Hand: Jersey Dahl MD #### CDP, CP #### [facility] [address] [place] [address] [place] [address] Almond Blancher Hand: Kayley Doll MD Potassium [Moles/Vol] 3.5 mmol/L Low 3.7-5.3 [facility] Comment on above: Performed By: #### L IPR #### [address] [address] Almond Blancher Hand: Jersey Dahl MD #### CDP, CP #### [facility] [address] [place], [place] [phone] Almond Blancher Hand: Kayley Doll MD Protein [Mass/Vol] 7.4 g/dL Normal 6.4-8.3 [facility] Comment on above: Performed By: #### L IPR #### [address] [address] Almond Blancher Hand: Jersey Dahl MD #### CDP, CP #### [facility] [address] [place], [place] [phone] Almond Blancher Hand: Kayley Doll MD Sodium [Moles/Vol] 150 mmol/L High 135-144 [facility] Comment on above: Performed By: #### L IPR #### [address] [id number] Almond Blancher Hand: Jersey Dahl MD #### CDP, CP #### [facility] [address] [place] [address] Dr[place], [place] [phone] Almond Blancher Hand: Kayley Doll MD Urea nitrogen [Mass/Vol] 40 mg/dL High 8-23 [facility] Comment on above: Performed By: #### L IPR #### [address] [address] Almond Blancher Hand: Jersey Dahl MD #### CDP, CP #### [facility] [address] [place] [address] Dr[place], [place] [phone] Almond Blancher Hand: Kayley Doll MD Comprehensive Metabolic Pane [facility] 10-04-2022 Albumin [Mass/Vol] 3.9 g/dL 3.5 - 5.2 g/dL [facility] Albumin/Globulin [Mass ratio] 1.1 {ratio} 1.0 - 2.5 [facility] ALP [Catalytic activity/Vol] 99 U/L 35 - 104 U/L [facility] ALT [Catalytic activity/Vol] 27 U/L 5 - 33 U/L [facility] Anion gap [Moles/Vol] 10 mmol/L 9 - 17 mmol/L [facility] AST [Catalytic activity/Vol] 21 U/L NINF - 32 U/L [facility] Bilirubin [Mass/Vol] 1.0 mg/dL 0.3 - 1.2 mg/dL [facility] Calcium [Mass/Vol] 10.9 mg/dL High 8.6 - 10.4 mg/dL [facility] Chloride [Moles/Vol] 110 mmol/L High 98 - 107 mmol/L [facility] CO2 [Moles/Vol] 30 mmol/L 20 - 31 mmol/L [facility] [facility] Creatinine [Mass/Vol] 0.99 mg/dL High 0.50 - 0.90 mg/dL [facility] GFR/1.73 sq M.predicted MDRD (S/P/Bld) [Vol rate/Area] - [facility] Comment on above: These results are not [...] [Mass/Vol] 80 mg/dL 70 - 99 mg/dL [facility] Interpretation and review of laboratory results Abnormal [facility] Potassium [Moles/Vol] 3.5 mmol/L Low 3.7 - 5.3 mmol/L [facility] Protein [Mass/Vol] 7.4 g/dL 6.4 - 8.3 g/dL [facility] Sodium [Moles/Vol] 150 mmol/L High 135 - 144 mmol/L [facility] Urea nitrogen [Mass/Vol] 40 mg/dL High 8 - 23 mg/dL [facility] Urea nitrogen/Creatinin e (Bld) [Mass ratio] 40 High 9 - 20 [facility] Thyroxine T4on 10-04-2022 T4 [Mass/Vol] 10.7 ug/dL Normal 4.5-10.9 [facility] Comment on above: Performed By: #### L IPR #### [address] [address] Almond Blancher Hand: Jersey Dahl MD #### CDP, CP #### [address] [address] Almond Blancher Hand: Kayley Doll MD Triiodothyronine T3on 2022 Triiodothyronine T3 63 ng/dL Normal 60-181 [facility] Comment on above: Performed By: #### L IPR #### [address] [id number] Almond Blancher Hand: Jersey Dahl MD #### CDP, CP #### [address] [place] [address] Almond Blancher Hand: Kayley Doll MD T3, Freeon 10-03-2022 Free T3 [Mass/Vol] 1.96 pg/mL Low 2.02-4.43 [facility] Comment on above: Performed By: #### L IPR #### [address] [id number] Almond Blancher Hand: Jersey Dahl MD #### CDP, CP #### [address] [place] [address] Almond Blancher Hand: Kayley Doll MD TSHon 10-03-2022 TSH Qn 0.39 m[IU]/L [facility] Thyroid Stim. Horm.on 2022 Thyroid Stim. Horm. 0.39 uIU/mL Normal 0.30-5.00 [facility] Comment on above: Performed By: #### T 4, FT4, T3, FT3 #### [address] [id number] Almond Blancher Hand: Jersey Dahl MD #### TSH #### [facility] [address] [place] [address] Almond Blancher Hand: Kayley Doll MD Thyroxine, Freeon 10-03-2022 Thyroxine, Free 1.5 ng/dL Normal 0.9-1.7 [facility] Comment on above: Performed By: #### L IPR #### [facility] [address] [place], [place] [id number] Almond Blancher Hand: Jersey Dahl MD #### CDP, CP #### [facility] [address] [place] [address] Almond Blancher Hand: Kayley Doll MD ACETAMINOPHENon 2 Acetaminophen [Mass/Vol] ug/mL Critically low 10.0-30.[address] [facility] Comment on above: Performed By: #### S ALYC, ACET, ETH ####[facility] [address] [place] [address]Dr. Soniya Chi BNPon 09-28-2022 Natriuretic peptide B (Bld) [Mass/Vol] 70.0 pg/mL Normal <=900.[address] [facility] Comment on above: Performed By: #### T SH, CMP, BNP, CMADM ####[facility] Iwr[address] [place] [address]Dr. Soniya Chi CARDIAC HAYDER ADMITon 023 CK [Catalytic activity/Vol] 19 U/L Critically low 26-[address] [facility] Comment on above: Performed By: #### T SH, CMP, BNP, CMADM ####[facility] Igqettlazu[address] [place] [address]Dr. Soniya Chi CK.MB [Mass/Vol] 1.97 ng/mL Normal <=3.60 [facility] Comment on above: Performed By: #### T SH, CMP, BNP, CMADM ####[facility] Zownjksadk[address] [place] [address]Dr. juan Chi HSTROP 16.3 pg/mL Normal 4.0-51.[address] [facility] Comment on above: Result Comment: CUT- OFF POINTS HAVE BEEN ESTABLISHED BASED ON THE FOURTH UNIVERSAL DEFINITIONS OF MYOCARDIALINFARCTION. THE UPPER REFERENCE LIMIT (URL) OF TROPONIN, DEFINED THE 99TH PERCENTILE OFcTnI DISTRIBUTION IN A REFERENCE POPULATION, HAS BEEN CONFIRMED THE DECISION THRESHOLDFOR ID DIAGNOSIS. Performed By: #### T SH, CMP, BNP, CMADM ####[facility] Ionsucxepc[address] [place] [address]Dr. Soniya Chi PALMIRA 68 ng/mL Normal 9-82 [facility] Comment on above: Performed By: #### T SH, CMP, BNP, CMADM ####[facility] Rzaoieawxg[address] [place], [place] [address]Dr. Soniya Chi CBC AUTO DIFFon 09-28-2022 BASO # 0.0 103/ul Normal 0.0-0.[address] [facility] Comment on above: Performed By: #### C BC ####[facility] Zwywn[address]lx[address] [place], [place] [address]Dr. Soniya Chi Basophils/100 WBC (Bld) 0.2 % Normal 0.2-2.0 [facility] Comment on above: Performed By: #### C BC ####[facility] Idytzdclvy[address] [place], [place] [address]DrKarolian Chi EO # 0.0 103/ul Normal 0.0-0.[address] [facility] Comment on above: Performed By: #### C BC ####[facility] Qfamippvpz[address] [place], [place] [address]Dr. Soniya Chi Eosinophils/100 WBC (Bld) 0.3 % Critically low 0.9-7.0 [facility] Comment on above: Performed By: #### C BC ####[facility] Gvopvanzti[address] [place], [place] [address]Dr. Soniya Chi Erythrocyte distribution width (RBC) [Ratio] 15.8 % Critically high 11.0-15.[address] [facility] Comment on above: Performed By: #### C BC ####[facility] Xbxmonnsdo[address] [place], [place] [address]DrKarolina Chi Hematocrit (Bld) [Volume fraction] 30.1 % Critically low 36.0-48.0 [facility] Comment on above: Performed By: #### C BC ####[facility] Uttrikvqyv[address] [place] [address]DrKarolina Chi Hemoglobin (Bld) [Mass/Vol] 9.9 g/dL Critically low 12.0-16.0 [facility] Comment on above: Performed By: #### C BC ####[facility] Oaszbikjqu[address] [place], [place] [address]DrKarolina Chi IG # 0.02 10e3/ul Normal 0.00-0.03 [facility] Comment on above: Performed By: #### C BC ####[facility] Mvvtctaylr[address] [place], [place] [address]DrKarolina Chi IG % 0.2 % Normal 0.0-0.[address] [facility] Comment on above: Performed By: #### C BC ####[facility] Nbgymviuuk[address] [place], [place] [address]DrKarolina Chi LYMPH # 0.5 103/ul Critically low 1.2-3.8 [facility] Comment on above: Performed By: #### C BC ####[facility] Rwaukdsrcy[address] [place], [place] [address]DrKarolina Chi Lymphocytes/100 WBC (Bld) 5.2 % Critically low 20.5-60.0 [facility] Comment on above: Performed By: #### C BC ####[facility] Fxvubwyfua[address] [place], [place] [address]DrKarolina Chi MANUAL DIFF REQ NO Normal [facility] Comment on above: Performed By: #### C BC ####[facility] Fccnlmxiiv[address] [place], [place] [address]DrKarolina Chi MCH (RBC) [Entitic mass] 31.2 pg Normal 26.7-34.0 [facility] Comment on above: Performed By: #### C BC ####[facility] Ecktdbrmcz[address] [place], [place] [address]DrKarolina Chi MCHC (RBC) [Mass/Vol] 32.9 g/dL Normal 29.9-35.2 [facility] Comment on above: Performed By: #### C BC ####[facility] Bhmxhuvdzs[address] [place] [address]Dr. Soniya Chi MCV (RBC) [Entitic vol] 95.0 fL Normal 81.0-99.0 [facility] Comment on above: Performed By: #### C BC ####[facility] Qydtaxcukn[address] [place], [place] [address]Dr. Soniya Chi MONO # 0.5 103/ul Normal 0.3-0.8 [facility] Comment on above: Performed By: #### C BC ####[facility] Xmanchdrho[address] [place], [place] [address]Dr. Soniya Chi Monocytes/100 WBC (Bld) 4.6 % Normal 1.7-12.0 [facility] Comment on above: Performed By: #### C BC ####[facility] Nswrlspjjs[address] [place], [place] [address]Dr. Soniya Chi NEUT # 8.9 103/ul Critically high 1.4-6.5 [facility] Comment on above: Performed By: #### C BC ####[facility] Szmpjaxaef[address] [place], [place] [address]Dr. Soniya Chi Neutrophils/100 WBC (Bld) 89.5 % Critically high 43.0-75.0 [facility] Comment on above: Performed By: #### C BC ####[facility] Hbqfdlrhki[address] [place], [place] [address]Dr. Soniya Chi Platelet mean volume (Bld) [Entitic vol] 9.9 fL Normal 9.5-13.5 [facility] Comment on above: Performed By: #### C BC ####[facility] Jvhylzzqop[address] [place], [place] [address]Dr. Soniya Chi PLT 163 103/ul Normal 150-450 [facility] Comment on above: Performed By: #### C BC ####[facility] Wdtcdqptuw[address] [place], [place] [address]Dr. Soniya Chi RBC 3.17 106/ul Critically low 4.20-5.40 [facility] Comment on above: Performed By: #### C BC ####[facility] [address] [place], [place] [address]Py. Soniya Chi WBC 9.9 103/ul Normal 4.0-11.[address] [facility] Comment on above: Performed By: #### C BC ####[facility] R[address]air[address] [place] [id number]. Soniya Chi CT HEAD WO CONon 09-28-2022 CT HEAD WO CON Normal [facility] CULTURE BLOODon 09-28-2022 Microscopic examination of blood, culture Culture Observations: NO GROWTH AT 5 DAYS. Normal [facility] Comment on above: Performed By: #### B LDCX2 ####[facility] P[address]retbysx[address] [place], [place] [address]Mq. Soniya Chi Microscopic examination of blood, culture Culture Observations: NO GROWTH AT 5 DAYS. Normal [facility] Comment on above: Performed By: #### B LDCX1 ####[facility] [address]fez[address] [place], [place] [address]Zh. Soniya Chi Covid-19 PCR ([facility]NEW [facility])on 09-01 SARS-CoV-2 (COVID-19) RNA DORIAN+probe Ql (Unsp spec) Not detected Normal NOT DETECTED [facility] Comment on above: Result Comment: This test is not yet approved or cleared by the [place] FDA. When there are no FDA-approved or cleared tests available, and other criteria are met, FDA can make tests available under an emergency access mechanism called an Emergency Use Authorization (EUA). The EUA for this test is supported by the [place] of Health and Human Service's (HHS's) declaration [...] with SARS-CoV-2. Performed By: #### C VDTBH ####[facility] Z[address]wbxyqum[address] [place] [address]Dr. Soniya Chi DRUG SCREEN RAPID (URINE)on 09-28-2022 AMP Negative Normal NEGATIVE [facility] Comment on above: Performed By: #### D RUGRPD ####[facility] Mq[address]zuhfjij[address] [place] [address]Dr. Soniya Chi BAR Negative Normal NEGATIVE [facility] Comment on above: Performed By: #### D RUGRPD ####[facility] I[address] [place], [place] [address]Dr. Soniya Chi BUP Negative Normal NEGATIVE [facility] Comment on above: Performed By: #### D RUGRPD ####[facility] Aywr[address]jp[address] [place], [place] [address]Dr. Soniya Chi BZO Negative Normal NEGATIVE [facility] Comment on above: Performed By: #### D RUGRPD ####[facility] Obasdsblrs[address] [place], [place] [address]Dr. Soniya Chi MARIAH Negative Normal NEGATIVE [facility] Comment on above: Performed By: #### D RUGRPD ####[facility] Ccaqpfxbzs[address] [place], [place] [address]Dr. Gypsyjuan [facility] CUT-OFFS SEE BELOW Normal [facility] Comment on above: Result Comment: AMP (Amphetamine): 500ng/mL, BAR (Barbituates): 200 ng/mL, BZO (Benzodiazepines): 150 ng/mL, BUP (Buprenorphine): 10 ng/mL, MAIRAH (Cocaine): 150 ng/mL, mAMP (Methamphetamine): 500 ng/mL, MTD (Methadone): 200 ng/mL, OPI (Opiates): 100 ng/mL, OXY (Oxycodone): 100 ng/mL, PCP (Phencyclidine): 25 ng/mL, PPX (Propoxyphene): 300 ng/mL, THC (Cannabinoids): 50 ng/mL, TCA (Trycyclic Antidepressants): 300 ng/mL Performed By: #### D RUGRPD ####[facility] [address]qcvxvi[address] [place] [id number]. Soniya Chi DRUG CUT HEADER DRUG CLASS TEST SYSTEM CUT-OFF CONCENTRATIONS ARE FOLLOWS: Normal [facility] Comment on above: Performed By: #### D RUGRPD ####[facility] [address] [place] [id number]. Yilan Chi mAMP Negative Normal NEGATIVE [facility] Comment on above: Performed By: #### D RUGRPD ####[facility] Jcjwtenbwh[address] [place] [address]Dr. Yilan Chi MTD Negative Normal NEGATIVE [facility] Comment on above: Performed By: #### D RUGRPD ####[facility] Cqezenq[address] [place], [place] [address]Dr. Yilan Chi OPI Negative Normal NEGATIVE [facility] Comment on above: Performed By: #### D RUGRPD ####[facility] Vxyrytiofc[address] [place], [place] [address]Dr. Yilan Chi OXY Negative Normal NEGATIVE [facility] Comment on above: Performed By: #### D RUGRPD ####[facility] Ygerilepem[address] [place], [place] [address]Dr. Yilan Chi PCP Negative Normal NEGATIVE [facility] Comment on above: Performed By: #### D RUGRPD ####[facility] C[address]qifbrbb[address] [place] [address]Dr. Yilan Chi PPX Negative Normal NEGATIVE [facility] Comment on above: Performed By: #### D RUGRPD ####[facility] Pnhfypthkz[address] [place] [address]Dr. Yilan Chi TCA Negative Normal NEGATIVE [facility] Comment on above: Performed By: #### D RUGRPD ####[facility] Pcuidusaoq[address] [place], [place] [address]Dr. Yilan Chi THC Negative Normal NEGATIVE [facility] Comment on above: Performed By: #### D RUGRPD ####[facility] Hobfoonkxf[address] [place], [place] [address]Dr. Soniya Chi ER URINE PROFILEon 3 Bilirubin Ql (U) Negative Normal NEGATIVE [facility] Comment on above: Performed By: #### E RUR ####[facility] Lijzmsvbge[address] [place], [place] [address]Dr. Gypsyjuan Alon Clarity (U) CLEAR Normal CLEAR [facility] Comment on above: Performed By: #### E RUR ####[facility] Rcjtjtyarl[address] [place], [place] [address]Dr. Soniya Chi Color (U) LT. YELLOW Normal YELLOW [facility] Comment on above: Performed By: #### E RUR ####[facility] Jwuijxnoxf[address] [place], [place] [address]Dr. Soniya Chi ERUAHD A micrscopic examination will be performed if indicated. Normal [facility] Comment on above: Performed By: #### E RUR ####[facility] Ketmnwxpim[address] [place], [place] [address]Dr. Soniya Chi Glucose Ql (U) Negative Normal NEGATIVE [facility] Comment on above: Performed By: #### E RUR ####[facility] Ouyxchcptp[address] [place], [place] [address]Dr. Soniya Chi Hemoglobin Ql (U) Negative Normal NEGATIVE [facility] Comment on above: Performed By: #### E RUR ####[facility] Hotqpuoxmi[address] [place], [place] [address]Dr. Soniya Chi Ketones Ql (U) Negative Normal NEGATIVE [facility] Comment on above: Performed By: #### E RUR ####[facility] Rmueekttiq[address] [place], [place] [address]Dr. Soniya Chi LEUKOCYTES Negative Normal NEGATIVE [facility] Comment on above: Performed By: #### E RUR ####[facility] Wjctpqtcip[address] [place], [place] [address]Dr. Soniya Chi Nitrite Ql (U) Negative Normal NEGATIVE [facility] Comment on above: Performed By: #### E RUR ####[facility] Vjgaqejxyx[address] [place], [place] [address]Dr. Soniya Chi pH (U) 5.0 [pH] Normal 5-9 [facility] Comment on above: Performed By: #### E RUR ####[facility] Kxpmqvd[address]jg[address] [place], [place] [address]DrKarolina Soniya Chi SPEC GRAVITY 1.025 Normal 1.005-<=1.025 [facility] Comment on above: Performed By: #### E RUR ####[facility] Lcubnfgnvq458[address] [place], [place] [address]DrKarolina Soniya Alon UA PROTEIN Negative Normal NEGATIVE/ TRACE [facility] Comment on above: Performed By: #### E RUR ####[facility] Sdzrilgkey[address] [place], [place] [address]DrKarolina Gypsyjuan Chi UR MICRO IND NOT INDICATED Normal [facility] Comment on above: Performed By: #### E RUR ####[facility] Dawfrneidw[address] [place], [place] [address]DrKarolina Soniya Alon Urobilinogen Qn (U) 0.2 {Casimiro'U}/dL Normal 0.2 - 1.[address] [facility] Comment on above: Performed By: #### E RUR ####[facility] Fpryrypkmy[address] [place], [place] [address]DrKarolina Soniya Alon ETHANOL (BLD ALC)on 09-29-19 23 ALC NOTE NOTE: 80 mg/dl is the legal limit for a blood alcohol level Normal [facility] Comment on above: Performed By: #### S LYNNE ACET, ETH ####[facility] Tiyxjphjhr[address] [place], [place] [address]DrKarolina Soniya Chi Ethanol [Mass/Vol] mg/dL Normal [facility] Comment on above: Performed By: #### S LYNNE ACET, ETH ####[facility] Rsl[address]uph[address] [place], [place] [address]DrKarolina Soniya Alon FREE T3on 09-28-2022 FREE T3 2.81 pg/mlL Normal 2.18-3.[address] [facility] Comment on above: Performed By: #### F T3 ####[facility] Gugbttcjil[address] [place], [place] [address]Dr. Soniya Chi LACTATE/LACTIC ACIDon 2022 Lactate [Moles/Vol] 0.6 mmol/L Normal 0.4-2.[address] [facility] Comment on above: Performed By: #### L ACT ####[facility] Hzspglbbot3[address] [place] [address]Dr. Soniya Chi PROF 14(COMP METB)on 023 Albumin [Mass/Vol] 3.4 g/dL Normal 3.4-5.0 [facility] Comment on above: Performed By: #### T SH, CMP, BNP, CMADM ####[facility] Howikstfgv[address] [place] [address]Dr. Soniya Chi Albumin/Globulin [Mass ratio] 0.9 {ratio} Normal [facility] Comment on above: Performed By: #### T SH, CMP, BNP, CMADM ####[facility] Mipozdtcby[address] [place], [place] [address]Dr. Soniya Chi ALP [Catalytic activity/Vol] 113 U/L Normal 46-[address] [facility] Comment on above: Performed By: #### T SH, CMP, BNP, CMADM ####[facility] Adaq[address]iaebc[address] [place] [address]Dr. Soniya Chi ALT [Catalytic activity/Vol] 37 U/L Normal 14-[address] [facility] Comment on above: Performed By: #### T SH, CMP, BNP, CMADM ####[facility] Kpbyrkumxq18[address] [place] [address]Dr. Soniya Chi Anion gap [Moles/Vol] 11.6 mmol/L Normal [facility] Comment on above: Performed By: #### T SH, CMP, BNP, CMADM ####[facility] Vaenwctipe[address] [place], [place] [address]Dr. Soniya Chi AST [Catalytic activity/Vol] 19 U/L Normal 15-[address] [facility] Comment on above: Performed By: #### T SH, CMP, BNP, CMADM ####[facility] Fjpeqfdvci[address] [place] [address]Dr. Soniya Chi Bilirubin [Mass/Vol] 0.4 mg/dL Normal 0.2-1.0 [facility] Comment on above: Performed By: #### T SH, CMP, BNP, CMADM ####[facility] Xzsexfogwj[address] [place] [address]Dr. Soniya Chi Calcium [Mass/Vol] 10.1 mg/dL Normal 8.5-10.1 [facility] Comment on above: Performed By: #### T SH, CMP, BNP, CMADM ####[facility] Jbwvpvapvi[address] [place] [address]Dr. Soniya Chi Chloride [Moles/Vol] 107 mmol/L Normal 98-107 [facility] Comment on above: Performed By: #### T SH, CMP, BNP, CMADM ####[facility] Oierrbcwft[address] [place] [address]Dr. Soniya Chi CO2 [Moles/Vol] 29.9 mmol/L Normal 21.0-32.0 [facility] Comment on above: Performed By: #### T SH, CMP, BNP, CMADM ####[facility] Qran[address]wuj[address] [place], [place] [address]Dr. Soniya Chi Creatinine [Mass/Vol] 1.11 mg/dL Critically high 0.55-1.[address] [facility] Comment on above: Performed By: #### T SH, CMP, BNP, CMADM ####[facility] Tvyprvkltd[address] [place], [place] [address]Dr. Soniya Chi EGFR-AF BELIZEAN 59 mL/min/1.73m2 Critically low >=60 [facility] Comment on above: Performed By: #### T SH, CMP, BNP, CMADM ####[facility] Nmzdykhgiw[address] [place] [address]Dr. Soniya Chi EGFR-NON AF BELIZEAN 49 mL/min/1.73m2 Critically low >=60 [facility] Comment on above: Performed By: #### T SH, CMP, BNP, CMADM ####[facility] Fdgdqexdzb[address] [place] [address]Dr. Soniya Chi Globulin (S) [Mass/Vol] 4.0 g/dL Normal [facility] Comment on above: Performed By: #### T SH, CMP, BNP, CMADM ####[facility] L[address]aj[address]ucor[address] [place] [address]Dr. Soniya Chi Glucose [Mass/Vol] 89 mg/dL Normal 74-106 [facility] Comment on above: Performed By: #### T SH, CMP, BNP, CMADM ####[facility] Zciwiynbnn[address] [place] [address]Dr. Soniya Chi Potassium [Moles/Vol] 4.5 mmol/L Normal 3.5-5.1 [facility] Comment on above: Performed By: #### T SH, CMP, BNP, CMADM ####[facility] Sayaennpwb[address] [place] [address]Dr. Soniya Chi Protein [Mass/Vol] 7.4 g/dL Normal 6.4-8.2 [facility] Comment on above: Performed By: #### T SH, CMP, BNP, CMADM ####[facility] Ywogpcrwif[address] [place], [place] [address]Dr. Soniya Chi Sodium [Moles/Vol] 144 mmol/L Normal 136-145 [facility] Comment on above: Performed By: #### T SH, CMP, BNP, CMADM ####[facility] [address]peaajh[address] [place] [address]Dr. Soniya Chi Urea nitrogen [Mass/Vol] 19.0 mg/dL Critically high 7.0-18.0 [facility] Comment on above: Performed By: #### T SH, CMP, BNP, CMADM ####[facility] Qdzldcnxky[address] [place], [place] [address]Dr. Soniya Chi Urea nitrogen/Creatinin e [Mass ratio] 17.1 mg/mg Normal [facility] Comment on above: Performed By: #### T SH, CMP, BNP, CMADM ####[facility] Tibobqlvvz[address] [place] [address]Dr. Soniya Chi PROTIMEon 09-28-2022 INR Coag (PPP) [Relative time] 1.01 {INR} Normal [facility] Comment on above: Performed By: #### P T, PTT ####[facility] Agesixlyjs[address] [place] [address]Dr. Soniya Chi INR GUIDELINES SEE BELOW Normal [facility] Comment on above: Result Comment: SHARON RED INR: 2.0 - 3.0 CONDITIONS NOT LISTED BELOW 2.5 - 3.5 FOR PROSTHETIC HEART VALVE REPLACEMENT 2.5 - 3.5 RECURRENT THROMBOSIS Performed By: #### P T, PTT ####[facility] [address]scjnxxjib[address] [place] [address]Dr. Soniya Chi PT Coag (PPP) [Time] 10.7 s Normal 9.0-11.6 [facility] Comment on above: Performed By: #### P T, PTT ####[facility] [address]hqzl[address] [place] [address]Dr. Soniya Chi PTTon 09-28-2022 aPTT Coag (Bld) [Time] 36.7 s Critically high 22.3-36.2 [facility] Comment on above: Performed By: #### P T, PTT ####[facility] [address]ovospqop[address] [place] [address]Dr. Soniya Chi SALICYLATEon 09-28-2022 SALICYLATE <2.8 Normal <=19.9 [facility] Comment on above: Performed By: #### S ALYC, ACET, ETH ####[facility] Vqklzlffgf[address] [place] [address]Dr. Soniya Chi SYMPTOMATIC COVID-19 ANTIGEN on 09-28-2022 EUA Statement SEE BELOW Normal [facility] Comment on above: Result Comment: This test [...] revoked sooner. Performed By: #### C VDAGS ####[facility] Fjuiqarxoh4[address] [place] [id number]. Soniya Chi SARS-CoV-2 (COVID-19) RNA DORIAN+probe Ql (Unsp spec) Negative Normal NEGATIVE [facility] Comment on above: Performed By: #### C VDAGS ####[facility] Lkrd[address]okltf[address] [place] [address]Dr. Soniya Chi T4on 09-28-2022 T4 [Mass/Vol] 13.20 ug/dL Normal 4.80-13.90 [facility] Comment on above: Performed By: #### T 4 ####[facility] Nyghdeavud[address] [place], [place] [address]Dr. Soniya Chi TSHon 09-28-2022 TSH 0.188 uIU/mL Critically low 0.358-3.740 [facility] Comment on above: Performed By: #### T SH, CMP, BNP, CMADM ####[facility] [address]cbyfma[address] [place] [address]Dr. Soniya Chi XR CHEST 1 Von 09-28-2022 XR CHEST 1 V Normal [facility] CBC AUTO DIFFon 09-16-2022 BASO # 0.0 103/ul Normal 0.0-0.1 [facility] Comment on above: Performed By: #### C BC ####[facility] Ppnpfsqnqy16[address] [place] [address]Dr. Soniya Chi Basophils/100 WBC (Bld) 0.4 % Normal 0.2-2.0 [facility] Comment on above: Performed By: #### C BC ####[facility] Jeuqbgolrt[address] [place] [address]Dr. Soniya Chi EO # 0.1 103/ul Normal 0.0-0.7 [facility] Comment on above: Performed By: #### C BC ####[facility] Arselmheck[address] [place] [address]Dr. Soniya Chi Eosinophils/100 WBC (Bld) 1.7 % Normal 0.9-7.0 [facility] Comment on above: Performed By: #### C BC ####[facility] Jzppdkgdzv76[address] [place] [address]Dr. Soniya Chi Erythrocyte distribution width (RBC) [Ratio] 15.9 % Critically high 11.0-15.0 [facility] Comment on above: Performed By: #### C BC ####[facility] Wueyqnmebi[address] [place], [place] [address]Dr. Soniya Chi Hematocrit (Bld) [Volume fraction] 30.6 % Critically low 36.0-48.0 [facility] Comment on above: Performed By: #### C BC ####[facility] Yvpoimbfbx[address] [place], [place] [address]Dr. Soniya Chi Hemoglobin (Bld) [Mass/Vol] 9.9 g/dL Critically low 12.0-16.0 [facility] Comment on above: Performed By: #### C BC ####[facility] Txvrs[address]xco[address] [place], [place] [address]Dr. Soniya Chi IG # 0.01 10e3/ul Normal 0.00-0.03 [facility] Comment on above: Performed By: #### C BC ####[facility] Kvasqjaxqj[address] [place] [address]Dr. Soniya Chi IG % 0.2 % Normal 0.0-0.5 [facility] Comment on above: Performed By: #### C BC ####[facility] Zbvidaoqbf[address] [place], [place] [address]Dr. Soniya Chi LYMPH # 1.2 103/ul Normal 1.2-3.8 [facility] Comment on above: Performed By: #### C BC ####[facility] Qtgpfsydoq[address] [place], [place] [address]Dr. Soniya Chi Lymphocytes/100 WBC (Bld) 22.4 % Normal 20.5-60.0 [facility] Comment on above: Performed By: #### C BC ####[facility] Bwggmznbnq[address] [place] [address]Dr. Soniya Chi MANUAL DIFF REQ NO Normal [facility] Comment on above: Performed By: #### C BC ####[facility] Vvrlykrufz59[address] [place] [address]Dr. Soniya Chi MCH (RBC) [Entitic mass] 30.9 pg Normal 26.7-34.0 [facility] Comment on above: Performed By: #### C BC ####[facility] Mbgvymlrlg[address] [place], [place] [address]Dr. Soniya Chi MCHC (RBC) [Mass/Vol] 32.4 g/dL Normal 29.9-35.2 [facility] Comment on above: Performed By: #### C BC ####[facility] Afjxkgmznv[address] [place], [place] [address]Dr. Soniya Chi MCV (RBC) [Entitic vol] 95.6 fL Normal 81.0-99.[address] [facility] Comment on above: Performed By: #### C BC ####[facility] Tmscstmqza[address] [place], [place] [address]Dr. Soniya Chi MONO # 0.4 103/ul Normal 0.3-0.8 [facility] Comment on above: Performed By: #### C BC ####[facility] Ejjzlbqt[address] [place], [place] [address]Dr. Soniya Chi Monocytes/100 WBC (Bld) 6.9 % Normal 1.7-12.0 [facility] Comment on above: Performed By: #### C BC ####[facility] Aczjhmuosk[address] [place], [place] [address]Dr. Soniya Chi NEUT # 3.6 103/ul Normal 1.4-6.5 [facility] Comment on above: Performed By: #### C BC ####[facility] Szwgmotbfh[address] [place], [place] [address]Dr. Soniya Chi Neutrophils/100 WBC (Bld) 68.4 % Normal 43.0-75.0 [facility] Comment on above: Performed By: #### C BC ####[facility] Tbwovvkmei85[address] [place] [address]Dr. Gypsyjuan Alon Platelet mean volume (Bld) [Entitic vol] 9.5 fL Normal 9.5-13.[address] [facility] Comment on above: Performed By: #### C BC ####[facility] Kjonlpbuge[address] [place] [address]Dr. Soniya Chi PLT 219 103/ul Normal 150-450 [facility] Comment on above: Performed By: #### C BC ####[facility] Mvwrqqgifm9701 [place] [address]Dr. Soniya Chi RBC 3.20 106/ul Critically low 4.20-5.40 [facility] Comment on above: Performed By: #### C BC ####[facility] Zwznnjdeek7[address] [place] [address]Dr. Soniya Chi WBC 5.2 103/ul Normal 4.0-11.0 [facility] Comment on above: Performed By: #### C BC ####[facility] Pypqpfgrib4[address] [place] [address]Dr. Soniya Chi PROF CHEM 8 (BAS METB)on Anion gap [Moles/Vol] 10.5 mmol/L Normal [facility] Comment on above: Performed By: #### B MP ####[facility] Kckqgkstsj20[address] [place] [address]Dr. Soniya Chi Calcium [Mass/Vol] 10.1 mg/dL Normal 8.5-10.1 [facility] Comment on above: Performed By: #### B MP ####[facility] Trirxhheca[address] [place] [address]Dr. Soniya Chi Chloride [Moles/Vol] 107 mmol/L Normal 98-107 [facility] Comment on above: Performed By: #### B MP ####[facility] Gohgwnmhty[address] [place] [address]Dr. Soniya Chi CO2 [Moles/Vol] 29.9 mmol/L Normal 21.0-32.0 [facility] Comment on above: Performed By: #### B MP ####[facility] Xiqbxhuwko[address] [place] [address]Dr. Soniya Chi Creatinine [Mass/Vol] 1.27 mg/dL Critically high 0.55-1.[address] [facility] Comment on above: Performed By: #### B MP ####[facility] Xkgmwrkgtu40[address] [place] [address]Dr. Soniya Chi EGFR-AF BELIZEAN 51 mL/min/1.73m2 Critically low >=60 [facility] Comment on above: Performed By: #### B MP ####[facility] Ddwgcwvlhp[address] [place] [address]Dr. Soinya Chi EGFR-NON AF BELIZEAN 42 mL/min/1.73m2 Critically low >=[address] [facility] Comment on above: Performed By: #### B MP ####[facility] Mkbhvecmtj[address] [place], [place] [address]Dr. Soniya Chi Glucose [Mass/Vol] 92 mg/dL Normal 74-106 [facility] Comment on above: Performed By: #### B MP ####[facility] Xzbpxtatrd[address] [place], [place] [address]Dr. Soniya Chi Potassium [Moles/Vol] 4.4 mmol/L Normal 3.5-5.[address] [facility] Comment on above: Performed By: #### B MP ####[facility] Ahdmhqijxj[address] [place], [place] [address]Dr. Soniya Chi Sodium [Moles/Vol] 143 mmol/L Normal 136-145 [facility] Comment on above: Performed By: #### B MP ####[facility] Bptnc[address]qnov[address] [place] [address]Dr. Soniya Chi Urea nitrogen [Mass/Vol] 28.0 mg/dL Critically high 7.0-18.[address] [facility] Comment on above: Performed By: #### B MP ####[facility] Fskkvdfyrv[address] [place] [address]Dr. Soniya Alon Urea nitrogen/Creatinin e [Mass ratio] 22.0 mg/mg Normal [facility] Comment on above: Performed By: #### B MP ####[facility] Fpltuhvvyk94[address] [place], [place] [address]XdKarolina Chi Basic Metabolic Panelon - Anion gap [Moles/Vol] 11 mmol/L 9 - 17 mmol/L [facility] Calcium [Mass/Vol] 10.0 mg/dL 8.6 - 10.4 mg/dL [facility] Chloride [Moles/Vol] 105 mmol/L 98 - 107 mmol/L [facility] CO2 [Moles/Vol] 28 mmol/L 20 - 31 mmol/L [facility] Creatinine [Mass/Vol] 1.06 mg/dL High 0.50 - 0.90 mg/dL [facility] GFR/1.73 sq M.predicted MDRD (S/P/Bld) [Vol rate/Area] 58 mL/min/{1.73_m2} Low - PINF [facility] Comment on above: These results are not [...] [Mass/Vol] 89 mg/dL 70 - 99 mg/dL [facility] Interpretation and review of laboratory results Abnormal [facility] Potassium [Moles/Vol] 4.2 mmol/L 3.7 - 5.3 mmol/L [facility] Sodium [Moles/Vol] 144 mmol/L 135 - 144 mmol/L [facility] Urea nitrogen [Mass/Vol] 18 mg/dL 8 - 23 mg/dL [facility] Urea nitrogen/Creatinin e (Bld) [Mass ratio] 17 9 - 20 [facility] Basic Metabolic Profon 08-27 Anion gap [Moles/Vol] 11 mmol/L Normal 9-17 [facility] Comment on above: Performed By: #### B MP, TSH #### [facility] [address] [place] [address] Almond Blancher Hand: Kayley Doll MD BUN/CRE Ratio 17 Normal 9-20 [facility] Comment on above: Performed By: #### B MP, TSH #### [facility] [address] [place], [place] [address] Almond Blancher Hand: Kayley Doll MD Calcium [Mass/Vol] 10.0 mg/dL Normal 8.6-10.4 [facility] Comment on above: Performed By: #### B MP, TSH #### [facility] [address] [place], [place] [address] Almond Blancher Hand: Kayley Doll MD Chloride [Moles/Vol] 105 mmol/L Normal 98-107 [facility] Comment on above: Performed By: #### B LONI, TSH #### [facility] [address] [place], [place] [address]83 Almond Blancher Hand: Kayley Doll MD CO2 [Moles/Vol] 28 mmol/L Normal 20-31 [facility] Comment on above: Performed By: #### B LONI, TSH #### [facility] [address] [place] [address] Almond Blancher Hand: Kayley Doll MD Creatinine [Mass/Vol] 1.06 mg/dL High 0.50-0.90 [facility] Comment on above: Performed By: #### B LONI, TSH #### [facility] [address] [place] [address] Almond Blancher Hand: Kayley Doll MD GFR/1.73 sq M.predicted among non-blacks MDRD (S/P/Bld) [Vol rate/Area] 58 mL/min/{1.73_m2} Low >60 [facility] Comment on above: Result Comment: These [...] Performed By: #### B MP, TSH #### [address] [place], [place] [address]83 Almond Blancher Hand: Kayley Doll MD Glucose [Mass/Vol] 89 mg/dL Normal 70-99 [facility] Comment on above: Performed By: #### B MP, TSH #### [address] [place], [place] [address]83 Almond Blancher Hand: Kayley Doll MD Potassium [Moles/Vol] 4.2 mmol/L Normal 3.7-5.3 [facility] Comment on above: Performed By: #### B MP, TSH #### [address] [place], [place] [address]83 Almond Blancher Hand: Kayley Doll MD Sodium [Moles/Vol] 144 mmol/L Normal 135-144 [facility] Comment on above: Performed By: #### B LONI, TSH #### [address] [place], [place] [address]83 Almond Blancher Hand: Kayley Doll MD Urea nitrogen [Mass/Vol] 18 mg/dL Normal 8-23 [facility] Comment on above: Performed By: #### B MP, TSH #### [address] [place], [place] 634[address]83 Almond Blancher Hand: Kayley Doll MD Cult,Urineon 08-27-2022 Cult,Urine Specimen Description .CLEAN CATCH URINE Culture NO SIGNIFICANT GROWTH Report Status FINAL 08/26/2022 Normal [facility] Comment on above: Performed By: #### U RC #### [facility] [address] [place] [address] Almond Blancher Hand: Jersey Dahl MD [address] [place], [place] 409[address]383 Almond Blancher Hand: Kayley Doll MD No Panel Informationon 08-27 [facility] TSHon 08-27-2022 TSH Qn 3.78 m[IU]/L [facility] Thyroid Stim. Horm.on 2022 Thyroid Stim. Horm. 3.78 uIU/mL Normal 0.30-5.00 [facility] Comment on above: Performed By: #### B MP, TSH #### [facility] [address] [place] [address] Almond Blancher Hand: Kayley Doll MD Urinalysison 08-25-2022 Bilirubin Urine Negative NEGATIVE [facility] Color, UA Yellow Yellow [facility] Glucose Auto test strip (U) [Mass/Vol] Negative NEGATIVE [facility] Interpretation and review of laboratory results Abnormal [facility] Ketones (U) [Mass/Vol] Negative NEGATIVE [facility] Leukocyte esterase Auto test strip Ql (U) Negative NEGATIVE [facility] Nitrite Auto test strip Ql (U) Negative NEGATIVE [facility] Protein (U) [Mass/Vol] 7.0 mg/dL 5.0 - 9.0 [facility] Protein (U) [Mass/Vol] Negative NEGATIVE [facility] Specific Fairchild, UA Low 1.010 - 1.020 [facility] Turbidity UA Clear Clear [facility] Urine Hgb Negative NEGATIVE [facility] Urobilinogen, Urine Normal Normal [facility] Urinalysis, Routineon 2022 Bilirubin, SemiQt,Ur Negative Normal NEG [facility] Comment on above: Performed By: #### U A #### [facility] [address] [place] [address] Almond Blancher Hand: Kayley Doll MD Blood, Urine Negative Normal NEG [facility] Comment on above: Performed By: #### U A #### [facility] [address] [place] [address] Almond Blancher Hand: Kayley Doll MD Clarity (U) Clear Normal CLEAR [facility] Comment on above: Performed By: #### U A #### [facility] [address] [place] [address] Dr[address] [place], [place] [address] Almond Blancher Hand: Kayley Doll MD Color (U) Yellow Normal YEL [facility] Comment on above: Performed By: #### U A #### [facility] [address] [place] [address] Dr[address] [place], [place] [address] Almond Blancher Hand: Kaylye Doll MD Glucose Ql (U) Negative Normal NEG [facility] Comment on above: Performed By: #### U A #### [address] [place], [place] [address]83 Almond Blancher Hand: Kayley Doll MD Ketones Ql (U) Negative Normal NEG [facility] Comment on above: Performed By: #### U A #### [facility] [address] [place] [address] Dr. [place], [place] 0[address] Almond Blancher Hand: Kayley Doll MD Leukocyte esterase Test strip Ql (U) Negative Normal NEG [facility] Comment on above: Performed By: #### U A #### [address] [place], [place] [address] Almond Blancher Hand: Kayley Doll MD Nitrite,Ur Negative Normal NEG [facility] Comment on above: Performed By: #### U A #### [facility] [address] [place] [address] Dr[address] [place], [place] [address]83 Almond Blancher Hand: Kayley Doll MD PH,Ur 7.0 Normal 5.0-9.0 [facility] Comment on above: Performed By: #### U A #### [address] [place] [address] Almond Blancher Hand: Kayley Doll MD Protein Ql (U) Negative Normal NEG [facility] Comment on above: Performed By: #### U A #### [facility] [address] [place], [place] [id number] Almond Blancher Hand: Kayley Doll MD Spec. Fairchild,Ur <1.005 Low 1.010-1.020 [facility] Comment on above: Performed By: #### U A #### [facility] [address] [place], [place] [address]83 Almond Blancher Hand: Kayley Doll MD Urobilinogen,Ur Normal Normal NORM [facility] Comment on above: Performed By: #### U A #### [facility] [address] [place] [address] Almond Blancher Hand: Kayley Doll MD CBC AUTO DIFFon 08-22-2022 BASO # 0.0 103/ul Normal 0.0-0.[address] [facility] Comment on above: Performed By: #### C BC ####[facility] [address]ons[address]qph[address] [place] [address]Dr. Soniya Chi Basophils/100 WBC (Bld) 0.4 % Normal 0.2-2.[address] [facility] Comment on above: Performed By: #### C BC ####[facility] [address]wn[address] [place], [place] [address]DrKarolina Chi EO # 0.2 103/ul Normal 0.0-0.[address] [facility] Comment on above: Performed By: #### C BC ####[facility] Rncilagntu6880 [place] [address]DrKarolina Chi Eosinophils/100 WBC (Bld) 2.7 % Normal 0.9-7.[address] [facility] Comment on above: Performed By: #### C BC ####[facility] Rcrneiucnj95[address] [place] [address]DrKarolina Chi Erythrocyte distribution width (RBC) [Ratio] 15.1 % Critically high 11.0-15.[address] [facility] Comment on above: Performed By: #### C BC ####[facility] Yaruyphqqe7[address] [place] [address]DrKarolina Chi Hematocrit (Bld) [Volume fraction] 24.2 % Critically low 36.0-48.0 [facility] Comment on above: Performed By: #### C BC ####[facility] Unnhjjastc[address] [place] [address]Dr. Soniya Chi Hemoglobin (Bld) [Mass/Vol] 8.0 g/dL Critically low 12.0-16.0 [facility] Comment on above: Performed By: #### C BC ####[facility] Sxidr[address]cf[address] [place], [place] [address]Dr. Soniya Chi IG # 0.03 10e3/ul Normal 0.00-0.[address] [facility] Comment on above: Performed By: #### C BC ####[facility] Izhkdiakwe[address] [place], [place] [address]Dr. Soniya Chi IG % 0.5 % Normal 0.0-0.[address] [facility] Comment on above: Performed By: #### C BC ####[facility] Acyvdncqdx[address] [place], [place] [address]Dr. Soniya Chi LYMPH # 1.3 103/ul Normal 1.2-3.8 [facility] Comment on above: Performed By: #### C BC ####[facility] Utheevemww[address] [place], [place] [address]Dr. Soniya Chi Lymphocytes/100 WBC (Bld) 23.4 % Normal 20.5-60.0 [facility] Comment on above: Performed By: #### C BC ####[facility] [address]hsmp[address] [place], [place] [address]Dr. Soniya Chi MANUAL DIFF REQ NO Normal [facility] Comment on above: Performed By: #### C BC ####[facility] Eikyjnaohf[address] [place], [place] [address]Dr. Soniya Chi MCH (RBC) [Entitic mass] 30.8 pg Normal 26.7-34.0 [facility] Comment on above: Performed By: #### C BC ####[facility] Cpwblxoaqf[address] [place], [place] [address]Dr. Soniya Chi MCHC (RBC) [Mass/Vol] 33.1 g/dL Normal 29.9-35.2 [facility] Comment on above: Performed By: #### C BC ####[facility] Juwzsxxvvu66[address] [place] [address]DrKarolina Soniya Chi MCV (RBC) [Entitic vol] 93.1 fL Normal 81.0-99.0 [facility] Comment on above: Performed By: #### C BC ####[facility] [address] [place], [place] [address]DrKarolina Betancurjuan Alon MONO # 0.6 103/ul Normal 0.3-0.8 [facility] Comment on above: Performed By: #### C BC ####[facility] Air[address]bojjq[address] [place], [place] [address]DrKarolina Chi Monocytes/100 WBC (Bld) 10.3 % Normal 1.7-12.0 [facility] Comment on above: Performed By: #### C BC ####[facility] [address] [place], [place] [address]DrKarolina Chi NEUT # 3.5 103/ul Normal 1.4-6.5 [facility] Comment on above: Performed By: #### C BC ####[facility] Cfsxcsrogl[address] [place], [place] [address]DrKarolina Gypsyjuan Chi Neutrophils/100 WBC (Bld) 62.7 % Normal 43.0-75.0 [facility] Comment on above: Performed By: #### C BC ####[facility] Tjfyrdeoll[address] [place], [place] [address]DrKarolina Chi Platelet mean volume (Bld) [Entitic vol] 10.6 fL Normal 9.5-13.5 [facility] Comment on above: Performed By: #### C BC ####[facility] Z[address]ywsqr[address] [place], [place] [address]DrKarolina Betancurjuan Alon PLT 133 103/ul Critically low 150-450 [facility] Comment on above: Performed By: #### C BC ####[facility] X[address]kptwax[address] [place], [place] [address]DrKarolina Chi RBC 2.60 106/ul Critically low 4.20-5.40 [facility] Comment on above: Performed By: #### C BC ####[facility] Vqyzyhzcki[address] [place] [address]Dr. Soniya Chi WBC 5.6 103/ul Normal 4.0-11.[address] [facility] Comment on above: Performed By: #### C BC ####[facility] Jevfqtztul37[address] [place] [address]Dr. Soniya Chi PROF 14(COMP METB)on 023 Albumin [Mass/Vol] 2.3 g/dL Critically low 3.4-5.0 [facility] Comment on above: Performed By: #### C MP, TSH ####[facility] Hxtzlubruq7[address] [place] [address]Dr. Soniya Chi Albumin/Globulin [Mass ratio] 0.8 {ratio} Normal [facility] Comment on above: Performed By: #### C MP, TSH ####[facility] Yggycuutym6[address] [place] [address]Dr. Soniya Chi ALP [Catalytic activity/Vol] 80 U/L Normal 46-[address] [facility] Comment on above: Performed By: #### C MP, TSH ####[facility] Rdzosxyizt1206 [place] [address]Dr. Soniya Chi ALT [Catalytic activity/Vol] 23 U/L Normal 14-[address] [facility] Comment on above: Performed By: #### C MP, TSH ####[facility] Gizciwpqgi9339 [place] [address]Dr. Soniya Chi Anion gap [Moles/Vol] 9.7 mmol/L Normal [facility] Comment on above: Performed By: #### C MP, TSH ####[facility] Rvfgbywoik5211 [place] [address]Dr. Soniya Chi AST [Catalytic activity/Vol] 20 U/L Normal 15-[address] [facility] Comment on above: Performed By: #### C MP, TSH ####[facility] [address] [place], [place] [address]Dr. Soniya Chi Bilirubin [Mass/Vol] 0.6 mg/dL Normal 0.2-1.0 [facility] Comment on above: Performed By: #### C MP, TSH ####[facility] Wzziplxidf4963 [place] [address]Dr. Soniya Chi Calcium [Mass/Vol] 8.7 mg/dL Normal 8.5-10.1 [facility] Comment on above: Performed By: #### C MP, TSH ####[facility] Hfoaimdxqa9596 [place] [address]Dr. Soniya Chi Chloride [Moles/Vol] 105 mmol/L Normal 98-107 [facility] Comment on above: Performed By: #### C LONI, TSH ####[facility] Alvfeslmza[address] [place], [place] [address]Dr. Soniya Chi CO2 [Moles/Vol] 30.0 mmol/L Normal 21.0-32.0 [facility] Comment on above: Performed By: #### C MP, TSH ####[facility] T[address]cvj[address] [place], [place] [address]Dr. Soniya Chi Creatinine [Mass/Vol] 0.96 mg/dL Normal 0.55-1.02 [facility] Comment on above: Performed By: #### C MP, TSH ####[facility] [address] [place], [place] [address]Dr. Soniya Chi EGFR-AF BELIZEAN >60 Normal >=60 [facility] Comment on above: Performed By: #### C MP, TSH ####[facility] G[address]kkvlurpa18[address] [place] [address]Dr. Soniya Chi EGFR-NON AF BELIZEAN 58 mL/min/1.73m2 Critically low >=60 [facility] Comment on above: Performed By: #### C MP, TSH ####[facility] [address]ys[address] [place], [place] [address]Dr. Soniya Chi Globulin (S) [Mass/Vol] 2.8 g/dL Normal [facility] Comment on above: Performed By: #### C MP, TSH ####[facility] Xvnupmwpie6352 [place] [address]Dr. Soniya Chi Glucose [Mass/Vol] 96 mg/dL Normal 74-106 [facility] Comment on above: Performed By: #### C MP, TSH ####[facility] [address]vywtjla8[address] [place] [address]Dr. Soniya Chi Potassium [Moles/Vol] 2.7 mmol/L Critically low 3.5-5.[address] [facility] Comment on above: Performed By: #### C MP, TSH ####[facility] Tponcvyaic[address] [place], [place] [address]Dr. Soniya Chi Protein [Mass/Vol] 5.1 g/dL Critically low 6.4-8.2 [facility] Comment on above: Performed By: #### C MP, TSH ####[facility] Qxtdztcutm[address] [place], [place] [address]Dr. Soniya Chi Sodium [Moles/Vol] 141 mmol/L Normal 136-145 [facility] Comment on above: Performed By: #### C MP, TSH ####[facility] Aifisexvtf172[address] [place], [place] [address]Dr. Soniya Chi Urea nitrogen [Mass/Vol] 17.0 mg/dL Normal 7.0-18.[address] [facility] Comment on above: Performed By: #### C MP, TSH ####[facility] Aysixyszse10[address] [place], [place] [address]Dr. Soniya Chi Urea nitrogen/Creatinin e [Mass ratio] 17.7 mg/mg Normal [facility] Comment on above: Performed By: #### C MP, TSH ####[facility] Zvzqassjpv4[address] [place] [address]Dr. Soniya Chi TSHon 08-22-2022 TSH 2.840 uIU/mL Normal 0.358-3.740 [facility] Comment on above: Performed By: #### C MP, TSH ####[facility] Yzdbwuhosv065[address] [place], [place] [address]Dr. Soniya Alon CBC AUTO DIFFon 08-21-2022 BASO # 0.0 103/ul Normal 0.0-0.[address] [facility] Comment on above: Performed By: #### C BC ####[facility] Zuxdayhklm422[address] [place], [place] [address]Dr. Soniya Chi Basophils/100 WBC (Bld) 0.3 % Normal 0.2-2.0 [facility] Comment on above: Performed By: #### C BC ####[facility] Ebluzdsfgo67[address] [place], [place] [address]Dr. Soniya Chi EO # 0.1 103/ul Normal 0.0-0.7 [facility] Comment on above: Performed By: #### C BC ####[facility] Gimwsdthve[address] [place], [place] [address]Dr. Soniya Chi Eosinophils/100 WBC (Bld) 0.9 % Normal 0.9-7.0 [facility] Comment on above: Performed By: #### C BC ####[facility] Ivavsynnfu494[address] [place], [place] [address]Dr. Soniya Chi Erythrocyte distribution width (RBC) [Ratio] 15.1 % Critically high 11.0-15.[address] [facility] Comment on above: Performed By: #### C BC ####[facility] Qyofmxauav97[address] [place], [place] [address]Dr. Soniya Chi Hematocrit (Bld) [Volume fraction] 27.3 % Critically low 36.0-48.[address] [facility] Comment on above: Performed By: #### C BC ####[facility] Tgxkqdaxzg349[address] [place], [place] [address]Dr. Soniya Chi Hemoglobin (Bld) [Mass/Vol] 8.9 g/dL Critically low 12.0-16.0 [facility] Comment on above: Performed By: #### C BC ####[facility] Mbhroqseiz899[address] [place], [place] [address]Dr. Soniya Chi IG # 0.03 10e3/ul Normal 0.00-0.03 [facility] Comment on above: Performed By: #### C BC ####[facility] Rftilodqhi479[address] [place], [place] [address]Dr. Soniya Chi IG % 0.5 % Normal 0.0-0.[address] [facility] Comment on above: Performed By: #### C BC ####[facility] Wefvjqllfn7234 [place] [address]Dr. Soniya Chi LYMPH # 1.0 103/ul Critically low 1.2-3.8 [facility] Comment on above: Performed By: #### C BC ####[facility] Qbhdnenpoz9390 [place] [address]Dr. Soniya Chi Lymphocytes/100 WBC (Bld) 14.9 % Critically low 20.5-60.[address] [facility] Comment on above: Performed By: #### C BC ####[facility] Cxakxmyzme2439[address] [place], [place] [address]Dr. Soniya Chi MANUAL DIFF REQ NO Normal [facility] Comment on above: Performed By: #### C BC ####[facility] Nlnwfeupyd[address] [place], [place] [address]Dr. Soniya Chi MCH (RBC) [Entitic mass] 31.2 pg Normal 26.7-34.[address] [facility] Comment on above: Performed By: #### C BC ####[facility] Qbmqadcyhw014[address] [place], [place] [address]Dr. Soniya Chi MCHC (RBC) [Mass/Vol] 32.6 g/dL Normal 29.9-35.2 [facility] Comment on above: Performed By: #### C BC ####[facility] Lrilfuhxvg3099[address] [place], [place] [address]Dr. Soniya Chi MCV (RBC) [Entitic vol] 95.8 fL Normal 81.0-99.0 [facility] Comment on above: Performed By: #### C BC ####[facility] Nkuvtdmssk374[address] [place], [place] [address]Dr. Soniya Chi MONO # 0.6 103/ul Normal 0.3-0.8 [facility] Comment on above: Performed By: #### C BC ####[facility] Eomgdjyrjw7729[address] [place], [place] [address]Dr. Soniya Chi Monocytes/100 WBC (Bld) 8.8 % Normal 1.7-12.[address] [facility] Comment on above: Performed By: #### C BC ####[facility] Lssezvytrl5932 [place] [address]DrKarolina Betancurjuan Chi NEUT # 4.9 103/ul Normal 1.4-6.[address] [facility] Comment on above: Performed By: #### C BC ####[facility] Pxcplnnicm6386 [place] [address]DrKarolina Chi Neutrophils/100 WBC (Bld) 74.6 % Normal 43.0-75.[address] [facility] Comment on above: Performed By: #### C BC ####[facility] Eynkpukhjg9567 [place] [address]DrKarolina Chi Platelet mean volume (Bld) [Entitic vol] 10.7 fL Normal 9.5-13.[address] [facility] Comment on above: Performed By: #### C BC ####[facility] Tjjmvpfhuq7865 [place] [address]DrKarolina Chi PLT 127 103/ul Critically low 150-450 [facility] Comment on above: Performed By: #### C BC ####[facility] Kmivzipcmn38[address] [place], [place] [address]DrKarolina Chi RBC 2.85 106/ul Critically low 4.20-5.40 [facility] Comment on above: Performed By: #### C BC ####[facility] Kklncerisn4260 [place] [address]DrKarolina Chi WBC 6.6 103/ul Normal 4.0-11.[address] [facility] Comment on above: Performed By: #### C BC ####[facility] Krbiwqkwox1333 [place] [address]DrKarolina Chi PROF 14(COMP METB)on 023 Albumin [Mass/Vol] 2.8 g/dL Critically low 3.4-5.0 [facility] Comment on above: Performed By: #### T SH, CMP ####[facility] Pujgcltnrc7652 [place] [address]DrKarolina Byrnes Alon Albumin/Globulin [Mass ratio] 0.8 {ratio} Normal [facility] Comment on above: Performed By: #### T TIFFANIE, CMP ####[facility] Hfqdifemni9578 [place] [address]Dr. Soniya Chi ALP [Catalytic activity/Vol] 101 U/L Normal 46-[address] [facility] Comment on above: Performed By: #### T TIFFANIE, CMP ####[facility] Pjvpdltgef0323 [place] [address]Dr. Gypsyjuan Chi ALT [Catalytic activity/Vol] 27 U/L Normal 14-[address] [facility] Comment on above: Performed By: #### T TIFFANIE, CMP ####[facility] Pufecihena423[address] [place], [place] [address]Dr. Soniya Chi Anion gap [Moles/Vol] 15.6 mmol/L Normal [facility] Comment on above: Performed By: #### T TIFFANIE, CMP ####[facility] Wafainuumw623[address] [place], [place] [address]Dr. Gypsyjuan Chi AST [Catalytic activity/Vol] 23 U/L Normal 15-[address] [facility] Comment on above: Performed By: #### T TIFFANIE, CMP ####[facility] Qtsreoyqpc424[address] [place], [place] [address]Dr. Soniya Chi Bilirubin [Mass/Vol] 0.9 mg/dL Normal 0.2-1.[address] [facility] Comment on above: Performed By: #### T TIFFANIE, CMP ####[facility] Riykrxoyfx1888 [place] [address]Dr. Soniya Chi Calcium [Mass/Vol] 9.1 mg/dL Normal 8.5-10.1 [facility] Comment on above: Performed By: #### T TIFFANIE, CMP ####[facility] Hcjnqavofe01[address] [place], [place] [address]Dr. Soniya Chi Chloride [Moles/Vol] 108 mmol/L Critically high 98-107 [facility] Comment on above: Performed By: #### Nahun MORENO, CMP ####[facility] Bfpghmypvj072[address] [place], [place] [address]Dr. Soniya Chi CO2 [Moles/Vol] 25.8 mmol/L Normal 21.0-32.0 [facility] Comment on above: Performed By: #### T TIFFANIE, CMP ####[facility] Gybbtybphs7516 [place] [address]Dr. Soniay Chi Creatinine [Mass/Vol] 1.01 mg/dL Normal 0.55-1.02 [facility] Comment on above: Performed By: #### T TIFFANIE, CMP ####[facility] Demexmfsdf3426 [place] [address]Dr. Soniya Chi EGFR-AF BELIZEAN >60 Normal >=60 [facility] Comment on above: Performed By: #### T TIFFANIE, CMP ####[facility] Nddwciqxmr[address] [place], [place] [address]Dr. Gypsyjuan Alon EGFR-NON AF BELIZEAN 55 mL/min/1.73m2 Critically low >=60 [facility] Comment on above: Performed By: #### T TIFFANIE, CMP ####[facility] Gnhwsuwhtb37[address] [place], [place] [address]Dr. Soniya Alon Globulin (S) [Mass/Vol] 3.3 g/dL Normal [facility] Comment on above: Performed By: #### T TIFFANIE, CMP ####[facility] Ehryvsvgxz8[address] [place], [place] [address]Dr. Gypsyjuan Chi Glucose [Mass/Vol] 68 mg/dL Critically low 74-106 [facility] Comment on above: Performed By: #### T TIFFANIE, CMP ####[facility] Ybsragudts8464 [place] [address]Dr. Soniya Alon Potassium [Moles/Vol] 3.4 mmol/L Critically low 3.5-5.[address] [facility] Comment on above: Performed By: #### T TIFFANIE, CMP ####[facility] Xzaeplgwkq834[address] [place], [place] [address]Dr. Soniya Chi Protein [Mass/Vol] 6.1 g/dL Critically low 6.4-8.2 [facility] Comment on above: Performed By: #### T TIFFANIE, CMP ####[facility] Ofywncllkz8798 [place] [address]Dr. Soniya Chi Sodium [Moles/Vol] 146 mmol/L Critically high 136-145 [facility] Comment on above: Performed By: #### T TIFFANIE, CMP ####[facility] Ldgxeqkrgt204[address] [place], [place] [address]Dr. Soniya Chi Urea nitrogen [Mass/Vol] 21.0 mg/dL Critically high 7.0-18.[address] [facility] Comment on above: Performed By: #### T TIFFANIE, CMP ####[facility] Lgvaudgexv[address] [place], [place] [address]Dr. Gypsyjuan Chi Urea nitrogen/Creatinin e [Mass ratio] 20.8 mg/mg Normal [facility] Comment on above: Performed By: #### T TIFFANIE, CMP ####[facility] Ljknenqeqi78[address] [place], [place] [address]Dr. Soniya Alon TSHon 08-21-2022 TSH 4.750 uIU/mL Critically high 0.358-3.740 [facility] Comment on above: Performed By: #### T TIFFANIE, CMP ####[facility] Oiovrbreab822[address] [place], [place] [address]Dr. Soniya Alon CBC AUTO DIFFon 08-20-2022 BASO # 0.0 103/ul Normal 0.0-0.[address] [facility] Comment on above: Performed By: #### C BC ####[facility] Jpkapeoiqo469[address] [place], [place] [address]Dr. Soniya Chi Basophils/100 WBC (Bld) 0.3 % Normal 0.2-2.[address] [facility] Comment on above: Performed By: #### C BC ####[facility] Hsmyqghclv[address] [place], [place] [address]Dr. Soniya Chi EO # 0.0 103/ul Normal 0.0-0.[address] [facility] Comment on above: Performed By: #### C BC ####[facility] Rmkjlluivj[address] [place], [place] [address]Dr. Soniya Chi Eosinophils/100 WBC (Bld) 0.6 % Critically low 0.9-7.[address] [facility] Comment on above: Performed By: #### C BC ####[facility] Fcobdmynmo5094 [place] [address]Dr. Soniya Chi Erythrocyte distribution width (RBC) [Ratio] 15.5 % Critically high 11.0-15.[address] [facility] Comment on above: Performed By: #### C BC ####[facility] Unhuusfhiz2903 [place] [address]Dr. Soniya Chi Hematocrit (Bld) [Volume fraction] 26.7 % Critically low 36.0-48.[address] [facility] Comment on above: Performed By: #### C BC ####[facility] Chetplanpv[address] [place], [place] [address]Dr. Soniya Alon Hemoglobin (Bld) [Mass/Vol] 8.7 g/dL Critically low 12.0-16.[address] [facility] Comment on above: Performed By: #### C BC ####[facility] Imshfqasmc[address] [place], [place] [address]Dr. Soniya Chi IG # 0.02 10e3/ul Normal 0.00-0.03 [facility] Comment on above: Performed By: #### C BC ####[facility] Cchfpxumgb9[address] [place], [place] [address]Dr. Soniya Alon IG % 0.3 % Normal 0.0-0.[address] [facility] Comment on above: Performed By: #### C BC ####[facility] Aqclsvhfax45[address] [place], [place] [address]Dr. Soniya Alon LYMPH # 0.9 103/ul Critically low 1.2-3.8 [facility] Comment on above: Performed By: #### C BC ####[facility] Ugfnkmypkc475[address] [place], [place] [address]Dr. Gypsyjuan Chi Lymphocytes/100 WBC (Bld) 12.8 % Critically low 20.5-60.0 [facility] Comment on above: Performed By: #### C BC ####[facility] Gqtyhdpcuz8[address] [place], [place] [address]Dr. Soniya Chi MANUAL DIFF REQ NO Normal [facility] Comment on above: Performed By: #### C BC ####[facility] Pmcbnltndc3093 [place] [address]DrKarolina Soniya Alon MCH (RBC) [Entitic mass] 30.7 pg Normal 26.7-34.[address] [facility] Comment on above: Performed By: #### C BC ####[facility] Rpysoofonf2177 [place] [address]DrKarolina Chi MCHC (RBC) [Mass/Vol] 32.6 g/dL Normal 29.9-35.[address] [facility] Comment on above: Performed By: #### C BC ####[facility] Mqatiayzau5405 [place] [address]DrKarolina Cih MCV (RBC) [Entitic vol] 94.3 fL Normal 81.0-99.[address] [facility] Comment on above: Performed By: #### C BC ####[facility] Ycijnawmgx199[address] [place], [place] [address]DrKarolina Chi MONO # 0.6 103/ul Normal 0.3-0.[address] [facility] Comment on above: Performed By: #### C BC ####[facility] Hwnxzqsnia9827[address] [place], [place] [address]DrKarolina Chi Monocytes/100 WBC (Bld) 9.4 % Normal 1.7-12.[address] [facility] Comment on above: Performed By: #### C BC ####[facility] Ltjryqkgid684[address] [place], [place] [address]DrKarolina Chi NEUT # 5.1 103/ul Normal 1.4-6.5 [facility] Comment on above: Performed By: #### C BC ####[facility] Xwdlocujsr068[address] [place], [place] [address]DrKarolina Chi Neutrophils/100 WBC (Bld) 76.6 % Critically high 43.0-75.0 [facility] Comment on above: Performed By: #### C BC ####[facility] Lhxucbvehi160[address] [place], [place] [address]DrKarolina Chi Platelet mean volume (Bld) [Entitic vol] 11.6 fL Normal 9.5-13.[address] [facility] Comment on above: Performed By: #### C BC ####[facility] Ngoxaiwkdp7791 [place] [address]Dr. Soniya Chi PLT 113 103/ul Critically low 150-450 [facility] Comment on above: Performed By: #### C BC ####[facility] Htexalwdrd6680 [place] [address]Dr. Soniya Chi RBC 2.83 106/ul Critically low 4.20-5.40 [facility] Comment on above: Performed By: #### C BC ####[facility] Gisozclxgh9375 [place] [address]Dr. Soniya Chi WBC 6.6 103/ul Normal 4.0-11.[address] [facility] Comment on above: Performed By: #### C BC ####[facility] Zykcieeaev4484 [place] [address]Dr. Soniya Chi CULTURE URINEon 08-20-2022 CULTURE URINE Normal [facility] Comment on above: Performed By: #### U RCX ####[facility] Wjehbyasaq[address] [place], [place] [address]Dr. Soniya Chi PROF 14(COMP METB)on 023 Albumin [Mass/Vol] 2.7 g/dL Critically low 3.4-5.0 [facility] Comment on above: Performed By: #### C MP, TSH ####[facility] Bkrqkgjytj8625 [place] [address]Dr. Soniya Chi Albumin/Globulin [Mass ratio] 0.9 {ratio} Normal [facility] Comment on above: Performed By: #### C MP, TSH ####[facility] Suuhizbnjz6542 [place] [address]Dr. Soniya Chi ALP [Catalytic activity/Vol] 83 U/L Normal 46-[address] [facility] Comment on above: Performed By: #### C MP, TSH ####[facility] Biqatpiujt8300 [place] [address]Dr. Soniya Chi ALT [Catalytic activity/Vol] 29 U/L Normal 14-[address] [facility] Comment on above: Performed By: #### C MP, TSH ####[facility] Sktzpvkgyc5447 [place] [address]Dr. Soniya Chi Anion gap [Moles/Vol] 12.3 mmol/L Normal [facility] Comment on above: Performed By: #### C MP, TSH ####[facility] Zrhenegliv064[address] [place], [place] [address]Dr. Soniya Alon AST [Catalytic activity/Vol] 21 U/L Normal 15-[address] [facility] Comment on above: Performed By: #### C MP, TSH ####[facility] Pgvxijjrjg484[address] [place], [place] [address]Dr. Soniya Alon Bilirubin [Mass/Vol] 1.2 mg/dL Critically high 0.2-1.[address] [facility] Comment on above: Performed By: #### C OLNI, TSH ####[facility] Dxwxatqrnh212[address] [place], [place] [address]Dr. Soniya Chi Calcium [Mass/Vol] 9.3 mg/dL Normal 8.5-10.1 [facility] Comment on above: Performed By: #### C MP, TSH ####[facility] Bloydhzdiv[address] [place], [place] [address]Dr. Soniya Chi Chloride [Moles/Vol] 109 mmol/L Critically high 98-107 [facility] Comment on above: Performed By: #### C MP, TSH ####[facility] Vmqjbpvtat846[address] [place], [place] [address]Dr. Soniya Chi CO2 [Moles/Vol] 27.1 mmol/L Normal 21.0-32.0 [facility] Comment on above: Performed By: #### C MP, TSH ####[facility] Yfyfqqbuux[address] [place], [place] [address]Dr. Soniya Alon Creatinine [Mass/Vol] 1.13 mg/dL Critically high 0.55-1.[address] [facility] Comment on above: Performed By: #### C MP, TSH ####[facility] Aucglkkzcf50[address] [place], [place] [address]Dr. Soniya Chi EGFR-AF BELIZEAN 58 mL/min/1.73m2 Critically low >=60 [facility] Comment on above: Performed By: #### C MP, TSH ####[facility] Syimgmncgm1577 [place] [address]Dr. Soniya Chi EGFR-NON AF BELIZEAN 48 mL/min/1.73m2 Critically low >=60 [facility] Comment on above: Performed By: #### C MP, TSH ####[facility] Xuqzxfymqf7472 [place] [address]Dr. Soniya Chi Globulin (S) [Mass/Vol] 3.1 g/dL Normal [facility] Comment on above: Performed By: #### C MP, TSH ####[facility] Ckacxfbvjc8426 [place] [address]Dr. Soniya Chi Glucose [Mass/Vol] 80 mg/dL Normal 74-106 [facility] Comment on above: Performed By: #### C LONI, TSH ####[facility] Rcebubymvj6924 [place] [address]Dr. Soniya Chi Potassium [Moles/Vol] 3.4 mmol/L Critically low 3.5-5.[address] [facility] Comment on above: Performed By: #### C MP, TSH ####[facility] Cxxhccrepb[address] [place], [place] [address]Dr. Soniya Chi Protein [Mass/Vol] 5.8 g/dL Critically low 6.4-8.2 [facility] Comment on above: Performed By: #### C MP, TSH ####[facility] Urevnlzylv3863 [place] [address]Dr. Soniya Chi Sodium [Moles/Vol] 145 mmol/L Normal 136-145 [facility] Comment on above: Performed By: #### C MP, TSH ####[facility] Nvbbhapnop6863 [place] [address]Dr. Soniya Chi Urea nitrogen [Mass/Vol] 23.0 mg/dL Critically high 7.0-18.[address] [facility] Comment on above: Performed By: #### C MP, TSH ####[facility] Ggutqvekts6639 [place] [address]Dr. Soniya Chi Urea nitrogen/Creatinin e [Mass ratio] 20.4 mg/mg Normal [facility] Comment on above: Performed By: #### C MP, TSH ####[facility] Cstrxtigiw1405 [place] [address]Dr. Soniya Chi TSHon 08-20-2022 TSH 6.050 uIU/mL Critically high 0.358-3.740 [facility] Comment on above: Performed By: #### C MP, TSH ####[facility] Mpfmkewegz9413 [place] [address]Dr. Soniya Chi US THYROIDon 08-20-2022 US THYROID Normal [facility] ECHOCARDIO M/2D COMPLETEon 0 08-19-2022 ECHOCARDIO M/2D COMPLETE Normal [facility] PROF 14(COMP METB)on 023 Albumin [Mass/Vol] 2.8 g/dL Critically low 3.4-5.0 [facility] Comment on above: Performed By: #### T SH, CMP ####[facility] Jbrpecqvuu038[address] [place], [place] [address]Dr. oSniya Chi Albumin/Globulin [Mass ratio] 0.9 {ratio} Normal [facility] Comment on above: Performed By: #### T SH, CMP ####[facility] Yifeupuimy174[address] [place], [place] [address]Dr. Soniya Chi ALP [Catalytic activity/Vol] 95 U/L Normal 46-[address] [facility] Comment on above: Performed By: #### T SH, CMP ####[facility] Sauvvptcjy22[address] [place], [place] [address]Dr. Soniya Chi ALT [Catalytic activity/Vol] 33 U/L Normal 14-[address] [facility] Comment on above: Performed By: #### T SH, CMP ####[facility] Tlwrwpanvb3470 [place] [address]Dr. Soniya Chi Anion gap [Moles/Vol] 13.2 mmol/L Normal [facility] Comment on above: Performed By: #### T SH, CMP ####[facility] Lxerlcerdp1982 [place] [id number]. Soniya Chi AST [Catalytic activity/Vol] 25 U/L Normal 15-37 [facility] Comment on above: Performed By: #### T SH, CMP ####[facility] Nqmjqgialz4040 [place] [id number]. Soniya Chi Bilirubin [Mass/Vol] 1.1 mg/dL Critically high 0.2-1.[address] [facility] Comment on above: Performed By: #### T SH, CMP ####[facility] Nujfyhktcg70[address] [place], [place] [address]Dr. Soniya Chi Calcium [Mass/Vol] 9.4 mg/dL Normal 8.5-10.1 [facility] Comment on above: Performed By: #### T TIFFANIE, CMP ####[facility] Itvfsrtzsd13[address] [place], [place] [address]Dr. Soniya Chi Chloride [Moles/Vol] 110 mmol/L Critically high 98-[address] [facility] Comment on above: Performed By: #### T SH, CMP ####[facility] Rpteqxnliw02[address] [place], [place] [address]Dr. Soniya Chi CO2 [Moles/Vol] 27.9 mmol/L Normal 21.0-32.0 [facility] Comment on above: Performed By: #### T SH, CMP ####[facility] Gvpycxvusk[address] [place], [place] [address]Dr. Soniya Chi Creatinine [Mass/Vol] 1.32 mg/dL Critically high 0.55-1.[address] [facility] Comment on above: Performed By: #### T SH, CMP ####[facility] Lltjcnavld[address] [place], [place] [address]Dr. Soniya Chi EGFR-AF BELIZEAN 49 mL/min/1.73m2 Critically low >=60 [facility] Comment on above: Performed By: #### T SH, CMP ####[facility] C[address]zx[address]pvk[address] [place], [place] [address]Dr. Soniya Chi EGFR-NON AF BELIZEAN 40 mL/min/1.73m2 Critically low >=60 [facility] Comment on above: Performed By: #### T SH, CMP ####[facility] Chcvuutapb8185 [place] [address]Dr. Soniya Chi Globulin (S) [Mass/Vol] 3.1 g/dL Normal [facility] Comment on above: Performed By: #### T SH, CMP ####[facility] Kpmiawtiif22[address] [place], [place] [address]Dr. Soniya Alon Glucose [Mass/Vol] 87 mg/dL Normal 74-106 [facility] Comment on above: Performed By: #### T SH, CMP ####[facility] Mjviiphyps[address] [place], [place] [address]Dr. Soniya Chi Potassium [Moles/Vol] 4.1 mmol/L Normal 3.5-5.[address] [facility] Comment on above: Performed By: #### T TIFFANIE, CMP ####[facility] Hxztbtulzd[address] [place], [place] [address]Dr. Soniya Chi Protein [Mass/Vol] 5.9 g/dL Critically low 6.4-8.2 [facility] Comment on above: Performed By: #### T SH, CMP ####[facility] Zkoesjenoj[address] [place], [place] [address]Dr. Gypsyjuan Chi Sodium [Moles/Vol] 147 mmol/L Critically high 136-145 [facility] Comment on above: Performed By: #### T TIFFANIE, CMP ####[facility] Iuhlngezsy[address] [place], [place] [address]Dr. Soniya Alon Urea nitrogen [Mass/Vol] 21.0 mg/dL Critically high 7.0-18.[address] [facility] Comment on above: Performed By: #### T SH, CMP ####[facility] Tevpbrvqij[address] [place], [place] [address]Dr. Gypsyjuan Alon Urea nitrogen/Creatinin e [Mass ratio] 15.9 mg/mg Normal [facility] Comment on above: Performed By: #### T SH, CMP ####[facility] Lsztqglllu8[address] [place], [place] [address]Dr. Soniya Chi TSHon 08-19-2022 TSH 5.781 uIU/mL Critically high 0.358-3.740 [facility] Comment on above: Performed By: #### T SH, CMP ####[facility] Xkwxxbdywk[address] [place] [address]Dr. Soniya Chi CT STROKE HEAD WOon 08-19-19 CT STROKE HEAD WO Normal [facility] UA RANDOM W/MICROSCOPICon BACTERIA MODERATE Abnormal NONE SEEN [facility] Comment on above: Performed By: #### U AMIC ####[facility] Huaksolmuy[address] [place] [address]Dr. Soniya Chi Bilirubin Ql (U) Negative Normal NEGATIVE [facility] Comment on above: Performed By: #### U AMIC ####[facility] Hqsmuxmbgy15[address] [place] [address]Dr. Soniya Chi CAST NONE SEEN Normal NONE SEEN [facility] Comment on above: Performed By: #### U AMIC ####[facility] Rlkjmpztnm[address] [place], [place] [address]Dr. Soniya Chi Clarity (U) CLEAR Normal CLEAR [facility] Comment on above: Performed By: #### U AMIC ####[facility] Nuensvhqlw[address] [place] [address]Dr. Soniya Chi Color (U) RED Abnormal YELLOW [facility] Comment on above: Performed By: #### U AMIC ####[facility] Qusepberoq5[address] [place] [address]Dr. Soniya Chi Crystals LM Nom (Urine sed) NONE SEEN Normal NONE SEEN [facility] Comment on above: Performed By: #### U AMIC ####[facility] Jylhfcnjup35[address] [place] [id number]. Soniya Chi Epithelial cells LM Ql (Urine sed) NONE SEEN Normal NONE SEEN /RARE [facility] Comment on above: Performed By: #### U AMIC ####[facility] Rnbixiilyb0[address] [place] [address]Dr. Soniya Chi Glucose Ql (U) Negative Normal NEGATIVE [facility] Comment on above: Performed By: #### U AMIC ####[facility] Wbaubncaoq9783 [place] [address]Dr. Soniya Chi Hemoglobin Ql (U) LARGE Abnormal NEGATIVE [facility] Comment on above: Performed By: #### U AMIC ####[facility] Ihsfmfwmyh5450 [place] [address]Dr. Soniya Chi Ketones Ql (U) 40 mg/dl Abnormal NEGATIVE [facility] Comment on above: Performed By: #### U AMIC ####[facility] Rmbybguswk[address] [place], [place] [address]Dr. Soniya Chi LEUKOCYTES LARGE Abnormal NEGATIVE [facility] Comment on above: Performed By: #### U AMIC ####[facility] Rnmzyknhvw257[address] [place], [place] [address]Dr. Soniya Chi MUCOUS NONE SEEN Normal NONE SEEN [facility] Comment on above: Performed By: #### U AMIC ####[facility] Hvxdlukbeh246[address] [place], [place] [address]Dr. Soniya Chi Nitrite Ql (U) Positive Abnormal NEGATIVE [facility] Comment on above: Performed By: #### U AMIC ####[facility] Djwqbweefv8[address] [place], [place] [address]Dr. Soniya Chi pH (U) 5.5 [pH] Normal 5-9 [facility] Comment on above: Performed By: #### U AMIC ####[facility] Hskpetvmex455[address] [place], [place] [address]Dr. Soniya Chi RBC (U) [#/Vol] /uL Abnormal 0-2 [facility] Comment on above: Performed By: #### U AMIC ####[facility] Kyopllqblx[address] [place], [place] [address]Dr. Soniya Chi SPEC GRAVITY >=1.030 Abnormal 1.005-<=1.025 [facility] Comment on above: Performed By: #### U AMIC ####[facility] Viotlycuwv594[address] [place], [place] [address]Dr. Soniya Chi UA PROTEIN 100 mg/dl Abnormal NEGATIVE/ TRACE [facility] Comment on above: Performed By: #### U AMIC ####[facility] Hwfxdhbmne9529 [place] [address]Dr. Soniya Chi Urobilinogen Qn (U) 1.0 {Casimiro'U}/dL Normal 0.2 - 1.0 [facility] Comment on above: Performed By: #### U AMIC ####[facility] Hyosvtbwxf20[address] [place], [place] [address]Dr. Soniya Chi WBC (U) [#/Vol] /uL Abnormal NONE SEEN [facility] Comment on above: Performed By: #### U AMIC ####[facility] Uvshffftlj[address] [place], [place] [address]Dr. Soniya Chi CBC AUTO DIFFon 08-17-2022 BASO # 0.0 103/ul Normal 0.0-0.1 [facility] Comment on above: Performed By: #### C BC ####[facility] Bcnktntlpr[address] [place], [place] [address]Dr. Soniya Chi Basophils/100 WBC (Bld) 0.2 % Normal 0.2-2.0 [facility] Comment on above: Performed By: #### C BC ####[facility] Nbhwmaxtvz[address] [place], [place] [address]DrKarolina Chi EO # 0.0 103/ul Normal 0.0-0.7 [facility] Comment on above: Performed By: #### C BC ####[facility] Actwocppsz12[address] [place], [place] [address]DrKarolina Chi Eosinophils/100 WBC (Bld) 0.6 % Critically low 0.9-7.0 [facility] Comment on above: Performed By: #### C BC ####[facility] Zrcfhzscvl332[address] [place], [place] [address]DrKarolina Chi Erythrocyte distribution width (RBC) [Ratio] 15.1 % Critically high 11.0-15.0 [facility] Comment on above: Performed By: #### C BC ####[facility] Mknwzvrzwd86[address] [place], [place] [address]DrKarolina Chi Hematocrit (Bld) [Volume fraction] 30.0 % Critically low 36.0-48.0 [facility] Comment on above: Performed By: #### C BC ####[facility] Gxvellofqe1771 [place] [address]DrKarolina Soniya Alon Hemoglobin (Bld) [Mass/Vol] 9.8 g/dL Critically low 12.0-16.0 [facility] Comment on above: Performed By: #### C BC ####[facility] Fhddbojkie28[address] [place], [place] [address]DrKarolina Chi IG # 0.02 10e3/ul Normal 0.00-0.03 [facility] Comment on above: Performed By: #### C BC ####[facility] Tzsvjasomz39[address] [place], [place] [address]DrKarolina Chi IG % 0.4 % Normal 0.0-0.[address] [facility] Comment on above: Performed By: #### C BC ####[facility] Tgrmnerauw7[address] [place], [place] [address]DrKarolina Chi LYMPH # 0.8 103/ul Critically low 1.2-3.8 [facility] Comment on above: Performed By: #### C BC ####[facility] Xopsbxpwoi34[address] [place], [place] [address]DrKarolina Chi Lymphocytes/100 WBC (Bld) 16.1 % Critically low 20.5-60.0 [facility] Comment on above: Performed By: #### C BC ####[facility] Tegrxqrlnd164[address] [place], [place] [address]DrKarolina Chi MANUAL DIFF REQ NO Normal [facility] Comment on above: Performed By: #### C BC ####[facility] Qggyrcatbj360[address] [place], [place] [address]DrKarolina Chi MCH (RBC) [Entitic mass] 30.3 pg Normal 26.7-34.0 [facility] Comment on above: Performed By: #### C BC ####[facility] Gswtgegnec[address] [place], [place] [address]DrKarolina Chi MCHC (RBC) [Mass/Vol] 32.7 g/dL Normal 29.9-35.2 [facility] Comment on above: Performed By: #### C BC ####[facility] Xmdgrvzlwm8605 [place] [address]Dr. Soniya Chi MCV (RBC) [Entitic vol] 92.9 fL Normal 81.0-99.0 [facility] Comment on above: Performed By: #### C BC ####[facility] Nmnpnqkhrr329[address] [place], [place] [address]Dr. Gypsyjuan Alon MONO # 0.4 103/ul Normal 0.3-0.8 [facility] Comment on above: Performed By: #### C BC ####[facility] Bhscckutmg5299[address] [place], [place] [address]Dr. Soniya Chi Monocytes/100 WBC (Bld) 8.1 % Normal 1.7-12.0 [facility] Comment on above: Performed By: #### C BC ####[facility] Kzedcodjus63[address] [place], [place] [address]Dr. Gypsyjuan Alon NEUT # 3.6 103/ul Normal 1.4-6.5 [facility] Comment on above: Performed By: #### C BC ####[facility] Onwelhkeqz365[address] [place], [place] [address]Dr. Gypsyjuan Chi Neutrophils/100 WBC (Bld) 74.6 % Normal 43.0-75.0 [facility] Comment on above: Performed By: #### C BC ####[facility] Egeeywcqdl8[address] [place], [place] [address]Dr. Gypsyjuan Alon Platelet mean volume (Bld) [Entitic vol] 10.6 fL Normal 9.5-13.5 [facility] Comment on above: Performed By: #### C BC ####[facility] Snjxbpcbvb8[address] [place], [place] [address]Dr. Gypsyjuan Alon PLT 116 103/ul Critically low 150-450 [facility] Comment on above: Performed By: #### C BC ####[facility] Yuggphfkcu3336[address] [place], [place] [address]Dr. Soniya Chi RBC 3.23 106/ul Critically low 4.20-5.40 [facility] Comment on above: Performed By: #### C BC ####[facility] Bbpibsodqb[address] [place], [place] [address]Dr. Soniya Chi WBC 4.8 103/ul Normal 4.0-11.0 [facility] Comment on above: Performed By: #### C BC ####[facility] Rskwajdjnv655[address] [place], [place] [address]Dr. Soniya Chi CULTURE URINEon 08-17-2022 CULTURE URINE Normal [facility] Comment on above: Performed By: #### U RCX ####[facility] Ivdijkeqjq57[address] [place], [place] [address]Dr. Soniya Chi ACETONE SERUMon 08-16-2022 ACETONE Negative Normal NEGATIVE [facility] Comment on above: Performed By: #### A CETON ####[facility] Zwrweiunia47[address] [place], [place] [address]Dr. Soniya Chi AMMONIAon 08-16-2022 Ammonia (P) [Mass/Vol] ug/dL Critically low 11-32 [facility] Comment on above: Performed By: #### A MM ####[facility] Fnqkqmkatw[address] [place], [place] [address]Dr. Soniya Chi CBC AUTO DIFFon 08-16-2022 BASO # 0.0 103/ul Normal 0.0-0.1 [facility] Comment on above: Performed By: #### C BC ####[facility] Mwjbmlktmt418[address] [place], [place] [address]Dr. Soniya Chi Basophils/100 WBC (Bld) 0.2 % Normal 0.2-2.0 [facility] Comment on above: Performed By: #### C BC ####[facility] Yhdovuswlv[address] [place], [place] [address]DrKarolina Soniya Chi EO # 0.1 103/ul Normal 0.0-0.7 [facility] Comment on above: Performed By: #### C BC ####[facility] Jltsgcctql96[address] [place], [place] [address]DrKarolina Soniya Chi Eosinophils/100 WBC (Bld) 1.0 % Normal 0.9-7.0 [facility] Comment on above: Performed By: #### C BC ####[facility] Tnkgvcdvqt8678 [place] [address]Dr. Soniya Chi Erythrocyte distribution width (RBC) [Ratio] 15.3 % Critically high 11.0-15.0 [facility] Comment on above: Performed By: #### C BC ####[facility] Jizqajdvog[address] [place], [place] [address]Dr. Soniya Chi Hematocrit (Bld) [Volume fraction] 31.2 % Critically low 36.0-48.0 [facility] Comment on above: Performed By: #### C BC ####[facility] Miyzfygoja14[address] [place], [place] [address]Dr. Soniya Chi Hemoglobin (Bld) [Mass/Vol] 10.3 g/dL Critically low 12.0-16.0 [facility] Comment on above: Performed By: #### C BC ####[facility] Ofoadouuyn14[address] [place], [place] [address]Dr. Soniya Chi IG # 0.01 10e3/ul Normal 0.00-0.03 [facility] Comment on above: Performed By: #### C BC ####[facility] Mmtexpeyvc[address] [place], [place] [address]Dr. Soniya Chi IG % 0.2 % Normal 0.0-0.5 [facility] Comment on above: Performed By: #### C BC ####[facility] Gussgiwavq03[address] [place], [place] [address]Dr. Soniya Chi LYMPH # 0.8 103/ul Critically low 1.2-3.8 [facility] Comment on above: Performed By: #### C BC ####[facility] Kdzcwinxau8[address] [place], [place] [address]Dr. Soniya Chi Lymphocytes/100 WBC (Bld) 14.5 % Critically low 20.5-60.0 [facility] Comment on above: Performed By: #### C BC ####[facility] Ymvdnrymcd8706 [place] [address]Dr. Soniya Alon MANUAL DIFF REQ NO Normal [facility] Comment on above: Performed By: #### C BC ####[facility] Mbuejrwikr[address] [place] [address]Dr. Soniya Chi MCH (RBC) [Entitic mass] 30.7 pg Normal 26.7-34.0 [facility] Comment on above: Performed By: #### C BC ####[facility] Peijmgpyjp[address] [place], [place] [address]Dr. Soniya Alon MCHC (RBC) [Mass/Vol] 33.0 g/dL Normal 29.9-35.2 [facility] Comment on above: Performed By: #### C BC ####[facility] Fngaytiogr318[address] [place], [place] [address]Dr. Soniya Alon MCV (RBC) [Entitic vol] 93.1 fL Normal 81.0-99.0 [facility] Comment on above: Performed By: #### C BC ####[facility] Iuefkwmkta414[address] [place], [place] [address]Dr. Soniya Alon MONO # 0.3 103/ul Normal 0.3-0.8 [facility] Comment on above: Performed By: #### C BC ####[facility] Wgwppicaul42[address] [place], [place] [address]Dr. Soniya Chi Monocytes/100 WBC (Bld) 5.7 % Normal 1.7-12.0 [facility] Comment on above: Performed By: #### C BC ####[facility] Zhjpolizvg[address] [place], [place] [address]Dr. Gypsyjuan Alon NEUT # 4.6 103/ul Normal 1.4-6.5 [facility] Comment on above: Performed By: #### C BC ####[facility] Phccscayhv[address] [place], [place] [address]Dr. Gypsyjuan Chi Neutrophils/100 WBC (Bld) 78.4 % Critically high 43.0-75.0 [facility] Comment on above: Performed By: #### C BC ####[facility] Nkzwgfeoud[address] [place], [place] [address]Dr. Soniya Chi Platelet mean volume (Bld) [Entitic vol] 10.3 fL Normal 9.5-13.[address] [facility] Comment on above: Performed By: #### C BC ####[facility] Dlnuqrpenc37[address] [place] [id number]. Soniya Chi PLT 123 103/ul Critically low 150-450 [facility] Comment on above: Performed By: #### C BC ####[facility] Tkoufeveoh1568 [place] [address]Dr. Soniya Chi RBC 3.35 106/ul Critically low 4.20-5.40 [facility] Comment on above: Performed By: #### C BC ####[facility] Zfwesbjgqy2224 [place] [address]Dr. Soniya Chi WBC 5.8 103/ul Normal 4.0-11.[address] [facility] Comment on above: Performed By: #### C BC ####[facility] Vplkihbgjr28[address] [place] [address]Dr. Soniya Chi CPKon 08-16-2022 CK [Catalytic activity/Vol] 32 U/L Normal 26-[address] [facility] Comment on above: Performed By: #### T SH, CK, HSTROPN, CMP ####[facility] Inscdautdn[address] [place] [address]Dr. Soniya Chi CT STROKE HEAD WOon 08-17-[address] STROKE HEAD WO Normal [facility] CULTURE BLOODon 08-16-2022 Microscopic examination of blood, culture Culture Observations: NO GROWTH AT 5 DAYS. Normal [facility] Comment on above: Performed By: #### B LDCX1 ####[facility] Qfqfzziooi9677 [place] [address]Dr. Soniya Chi Microscopic examination of blood, culture Culture Observations: NO GROWTH AT [address] [facility] Comment on above: Performed By: #### B LDCX2 ####[facility] Ahyskizxwd27[address] [place] [address]Dr. Soniya Alon Covid-19 PCR (CVDTBH)on 07-31 SARS-CoV-2 (COVID-19) RNA DORIAN+probe Ql (Unsp spec) Not detected Normal NOT DETECTED [facility] Comment on above: Result Comment: [...] for this test is supported by the [place] of [employer] and [employer] Service's declaration that [...] be used). Performed By: #### C VDTB ####[facility] Uyxggxvaia[address] [place], [place] [address]Dr. Soniya Chi DRUG SCREEN RAPID (URINE)on 08-16-2022 AMP Negative Normal NEGATIVE [facility] Comment on above: Performed By: #### E RUR, DRUGRPD ####[facility] Cmilmggeuc[address] [place], [place] [address]Dr. Soniya Chi BAR Negative Normal NEGATIVE [facility] Comment on above: Performed By: #### E RUR, DRUGRPD ####[facility] Fargivnulf[address] [place] [address]Dr. Soniya Chi BUP Negative Normal NEGATIVE [facility] Comment on above: Performed By: #### E RUR, DRUGRPD ####[facility] Wfgbamhyws[address] [place], [place] [address]Dr. Soniya Chi BZO Negative Normal NEGATIVE [facility] Comment on above: Performed By: #### E RUR, DRUGRPD ####[facility] Bxvghtpndn8223 [place] [address]Dr. Soniya Chi MARIAH Negative Normal NEGATIVE [facility] Comment on above: Performed By: #### E RUR, DRUGRPD ####[facility] Whqdmtbyxm[address] [place], [place] [address]Dr. Soniya Chi CUT-OFFS SEE BELOW Normal [facility] Comment on above: Result Comment: AMP (Amphetamine): 500ng/mL, BAR (Barbituates): 200 ng/mL, BZO (Benzodiazepines): 150 ng/mL, BUP (Buprenorphine): 10 ng/mL, MARIAH (Cocaine): 150 ng/mL, mAMP (Methamphetamine): 500 ng/mL, MTD (Methadone): 200 ng/mL, OPI (Opiates): 100 ng/mL, OXY (Oxycodone): 100 ng/mL, PCP (Phencyclidine): 25 ng/mL, PPX (Propoxyphene): 300 ng/mL, THC (Cannabinoids): 50 ng/mL, TCA (Trycyclic Antidepressants): 300 ng/mL Performed By: #### Benoit RUR, DRUGRPD ####[facility] Dxrndyrnhw[address] [place], [place] [address]Dr. Soniya Chi DRUG CUT HEADER DRUG CLASS TEST SYSTEM CUT-OFF CONCENTRATIONS ARE FOLLOWS: Normal [facility] Comment on above: Performed By: #### Benoit RUR, DRUGRPD ####[facility] Apieaagedj[address] [place], [place] [address]Dr. Soniya Chi mAMP Negative Normal NEGATIVE [facility] Comment on above: Performed By: #### Benoit RUR, DRUGRPD ####[facility] Pqdfrpxsgh[address] [place], [place] [address]Dr. Soniya Chi MTD Negative Normal NEGATIVE [facility] Comment on above: Performed By: #### E RUR, DRUGRPD ####[facility] Idcfdwgxmh[address] [place], [place] [address]Dr. Soniya Chi OPI Negative Normal NEGATIVE [facility] Comment on above: Performed By: #### E RUR, DRUGRPD ####[facility] Bcnzqnovte[address] [place], [place] [address]Dr. Soniya Chi OXY Negative Normal NEGATIVE [facility] Comment on above: Performed By: #### E RUR, DRUGRPD ####[facility] Eoojdggjzw9325 [place] [address]Dr. Soniya Chi PCP Negative Normal NEGATIVE [facility] Comment on above: Performed By: #### E RUR, DRUGRPD ####[facility] Skklhxlzss[address] [place], [place] [address]Dr. Soniya Chi PPX Negative Normal NEGATIVE [facility] Comment on above: Performed By: #### E RUR, DRUGRPD ####[facility] Pipepezpey[address] [place], [place] [address]Dr. Soniya Chi TCA Negative Normal NEGATIVE [facility] Comment on above: Performed By: #### E RUR, DRUGRPD ####[facility] Euctkyjghg[address] [place], [place] [address]Dr. Soniya Chi THC Negative Normal NEGATIVE [facility] Comment on above: Performed By: #### E RUR, DRUGRPD ####[facility] Twhjgjwmch[address] [place], [place] [address]Dr. Soniya Chi ER URINE PROFILEon 3 Bilirubin Ql (U) Negative Normal NEGATIVE [facility] Comment on above: Performed By: #### E RUR, DRUGRPD ####[facility] Ahrbabtyfk[address] [place], [place] [address]Dr. Soniya Chi Clarity (U) CLEAR Normal CLEAR [facility] Comment on above: Performed By: #### E RUR, DRUGRPD ####[facility] Sebouddtif[address] [place], [place] [address]Dr. Soniya Chi Color (U) LT. YELLOW Normal YELLOW [facility] Comment on above: Performed By: #### E RUR, DRUGRPD ####[facility] Oosdydacgy[address] [place], [place] [address]Dr. Soniya Chi ERUAHD A micrscopic examination will be performed if indicated. Normal [facility] Comment on above: Performed By: #### E RUR, DRUGRPD ####[facility] Pskckvqwkb[address] [place], [place] [address]Dr. Soniya Chi Glucose Ql (U) Negative Normal NEGATIVE [facility] Comment on above: Performed By: #### E RUR, DRUGRPD ####[facility] Fghkhzvmqj9[address] [place], [place] [address]Dr. Soniya Chi Hemoglobin Ql (U) Negative Normal NEGATIVE [facility] Comment on above: Performed By: #### E RUR, DRUGRPD ####[facility] Pzbjoavjzd[address] [place], [place] [address]Dr. Soniya Chi Ketones Ql (U) Negative Normal NEGATIVE [facility] Comment on above: Performed By: #### E RUR, DRUGRPD ####[facility] Gnqbkfhbwk[address] [place], [place] [address]Dr. Soniya Chi LEUKOCYTES Negative Normal NEGATIVE [facility] Comment on above: Performed By: #### E RUR, DRUGRPD ####[facility] Tewtbegqyp[address] [place], [place] [address]Dr. Soniya Chi Nitrite Ql (U) Negative Normal NEGATIVE [facility] Comment on above: Performed By: #### E RUR, DRUGRPD ####[facility] Izmlfgxkqr145[address] [place], [place] [address]Dr. Soniya Chi pH (U) 7.0 [pH] Normal 5-[address] [facility] Comment on above: Performed By: #### E RUR, DRUGRPD ####[facility] Dyvpvszxkm[address] [place], [place] [address]Dr. Soniya Chi SPEC GRAVITY 1.005 Normal 1.005-<=1.025 [facility] Comment on above: Performed By: #### E RUR, DRUGRPD ####[facility] Kmctcgabrf[address] [place], [place] [address]Dr. Soniya Chi UA PROTEIN Negative Normal NEGATIVE/ TRACE [facility] Comment on above: Performed By: #### E RUR, DRUGRPD ####[facility] Fwbsahgalo[address] [place], [place] [address]Dr. Soniya Chi UR MICRO IND NOT INDICATED Normal [facility] Comment on above: Performed By: #### E RUR, DRUGRPD ####[facility] [facility] [address] [place] [address]Dr. Soniya Chi Urobilinogen Qn (U) 0.2 {Casimiro'U}/dL Normal 0.2 - 1.0 [facility] Comment on above: Performed By: #### E RUR, DRUGRPD ####[facility] [address]skxigt[address] [place] [address]Dr. Soniya Chi FREE T3on 08-16-2022 FREE T3 2.61 pg/mlL Normal 2.18-3.98 [facility] Comment on above: Performed By: #### F T3 ####[facility] [address] [place], [place] [address]Dr. Soniya Chi FREE T4on 08-16-2022 Free T4 [Mass/Vol] 0.82 ng/dL Normal 0.76-1.46 [facility] Comment on above: Performed By: #### F T4 ####[facility] [address]ahz[address] [place], [place] [address]Dr. Soniya Chi LACTATE/LACTIC ACIDon 2022 Lactate [Moles/Vol] 1.1 mmol/L Normal 0.4-2.0 [facility] Comment on above: Performed By: #### L ACT ####[facility] Mnmtutyhqx[address] [place], [place] [address]Dr. Soniya Chi PH VENOUS BLOODon 08-16-2022 PCO2 VENOUS 58.3 mmHg Critically high 40.0-52.0 [facility] Comment on above: Performed By: #### P HVEN ####[facility] Tdogsxesmv[address] [place], [place] [address]Dr. Soniya Chi pH VENOUS 7.365 Normal 7.330-7.430 [facility] Comment on above: Performed By: #### P HVEN ####[facility] Vhkiigiqop[address] [place], [place] [address]Dr. Soniya Chi PROF 14(COMP METB)on 023 Albumin [Mass/Vol] 3.6 g/dL Normal 3.4-5.0 [facility] Comment on above: Performed By: #### T SH, CK, HSTROPN, CMP ####[facility] [address]ryanz[address] [place] [address]Dr. Soniya Chi Albumin/Globulin [Mass ratio] 1.0 {ratio} Normal [facility] Comment on above: Performed By: #### T SH, CK, HSTROPN, CMP ####[facility] Pvnc[address]xyxzn[address] [place] [address]Dr. Soniya Chi ALP [Catalytic activity/Vol] 115 U/L Normal 46-116 [facility] Comment on above: Performed By: #### T SH, CK, HSTROPN, CMP ####[facility] Ohixdjtjwr[address] [place] [address]Dr. Soniya Chi ALT [Catalytic activity/Vol] 48 U/L Normal 14-59 [facility] Comment on above: Performed By: #### T SH, CK, HSTROPN, CMP ####[facility] Eflzydzidg[address] [place], [place] [address]Dr. Soniya Chi Anion gap [Moles/Vol] 9.7 mmol/L Normal [facility] Comment on above: Performed By: #### T SH, CK, HSTROPN, CMP ####[facility] Crxaydduee[address] [place], [place] [address]Dr. Soniya Chi AST [Catalytic activity/Vol] 26 U/L Normal 15-[address] [facility] Comment on above: Performed By: #### T SH, CK, HSTROPN, CMP ####[facility] Steeybpvcs[address] [place], [place] [address]Dr. Soniya Chi Bilirubin [Mass/Vol] 0.7 mg/dL Normal 0.2-1.[address] [facility] Comment on above: Performed By: #### T SH, CK, HSTROPN, CMP ####[facility] Cxyk[address]hfox[address] [place], [place] [address]Dr. Soniya Chi Calcium [Mass/Vol] 10.1 mg/dL Normal 8.5-10.1 [facility] Comment on above: Performed By: #### T SH, CK, HSTROPN, CMP ####[facility] Drgcqgfuuu[address] [place] [address]Dr. Soniya Chi Chloride [Moles/Vol] 104 mmol/L Normal 98-107 [facility] Comment on above: Performed By: #### T SH, CK, HSTROPN, CMP ####[facility] B[address]ozquf[address] [place] [address]Dr. Soniya Chi CO2 [Moles/Vol] 34.6 mmol/L Critically high 21.0-32.0 [facility] Comment on above: Performed By: #### T SH, CK, HSTROPN, CMP ####[facility] Hnatfqewqx28[address] [place] [address]Dr. Soniya Chi Creatinine [Mass/Vol] 1.27 mg/dL Critically high 0.55-1.02 [facility] Comment on above: Performed By: #### T SH, CK, HSTROPN, CMP ####[facility] Vwposhzifk[address] [place], [place] [address]Dr. Soniya Chi EGFR-AF BELIZEAN 51 mL/min/1.73m2 Critically low >=60 [facility] Comment on above: Performed By: #### T SH, CK, HSTROPN, CMP ####[facility] Znfpvmxewo[address] [place], [place] [address]Dr. Soniya Chi EGFR-NON AF BELIZEAN 42 mL/min/1.73m2 Critically low >=60 [facility] Comment on above: Performed By: #### T SH, CK, HSTROPN, CMP ####[facility] Hblknapsnv7[address] [place], [place] [address]Dr. Soniya Chi Globulin (S) [Mass/Vol] 3.6 g/dL Normal [facility] Comment on above: Performed By: #### T SH, CK, HSTROPN, CMP ####[facility] [address]jyqvwfjcq[address] [place], [place] [address]Dr. Soniya Chi Glucose [Mass/Vol] 100 mg/dL Normal 74-106 [facility] Comment on above: Performed By: #### T SH, CK, HSTROPN, CMP ####[facility] [address]tav[address]osc[address] [place] [address]Dr. Soniya Chi Potassium [Moles/Vol] 4.3 mmol/L Normal 3.5-5.1 [facility] Comment on above: Performed By: #### T SH, CK, HSTROPN, CMP ####[facility] C[address]axfreyz[address] [place] [address]Dr. Soniya Chi Protein [Mass/Vol] 7.2 g/dL Normal 6.4-8.2 [facility] Comment on above: Performed By: #### T SH, CK, HSTROPN, CMP ####[facility] Xybbybmzjx[address] [place], [place] [address]Dr. Soniya Chi Sodium [Moles/Vol] 144 mmol/L Normal 136-145 [facility] Comment on above: Performed By: #### T SH, CK, HSTROPN, CMP ####[facility] Louiuwybyv[address] [place], [place] [address]Dr. Soniya Chi Urea nitrogen [Mass/Vol] 24.0 mg/dL Critically high 7.0-18.0 [facility] Comment on above: Performed By: #### T SH, CK, HSTROPN, CMP ####[facility] Uiezppliol[address] [place], [place] [address]Dr. Soniya Chi Urea nitrogen/Creatinin e [Mass ratio] 18.9 mg/mg Normal [facility] Comment on above: Performed By: #### T SH, CK, HSTROPN, CMP ####[facility] Uiduafuewn[address] [place], [place] [address]Dr. Soniya Chi PROTIMEon 08-16-2022 INR Coag (PPP) [Relative time] 0.97 {INR} Normal [facility] Comment on above: Performed By: #### P TT, PT ####[facility] Ganjgxuwpj[address] [place], [place] [address]Dr. Soniya Chi INR GUIDELINES SEE BELOW Normal [facility] Comment on above: Result Comment: SHARON RED INR: 2.0 - 3.0 CONDITIONS NOT LISTED BELOW 2.5 - 3.5 FOR PROSTHETIC HEART VALVE REPLACEMENT 2.5 - 3.5 RECURRENT THROMBOSIS Performed By: #### P TT, PT ####[facility] Ngrydhdiyp[address] [place] [address]Dr. Soniya Chi PT Coag (PPP) [Time] 10.3 s Normal 9.0-11.[address] [facility] Comment on above: Performed By: #### P TT, PT ####[facility] [address]conyt[address] [place] [id number]. Soniya Chi PTTon 08-16-2022 aPTT Coag (Bld) [Time] 33.1 s Normal 22.3-36.2 [facility] Comment on above: Performed By: #### P TT, PT ####[facility] [address]chpv[address] [place] [address]Dr. Soniya Chi TROPONIN, HIGH SENSITIVITYon 08-16-2022 HSTROP 9.8 pg/mL Normal 4.0-51.3 [facility] Comment on above: Result Comment: CUT- OFF POINTS HAVE BEEN ESTABLISHED BASED ON THE FOURTH UNIVERSAL DEFINITIONS OF MYOCARDIALINFARCTION. THE UPPER REFERENCE LIMIT (URL) OF TROPONIN, DEFINED THE 99TH PERCENTILE OFcTnI DISTRIBUTION IN A REFERENCE POPULATION, HAS BEEN CONFIRMED THE DECISION THRESHOLDFOR ID DIAGNOSIS. Performed By: #### T SH, CK, HSTROPN, CMP ####[facility] V[address]lc[address] [place] [address]Dr. Soniya Chi TSHon 08-16-2022 TSH 7.844 uIU/mL Critically high 0.358-3.740 [facility] Comment on above: Performed By: #### T SH, CK, HSTROPN, CMP ####[facility] Xyim[address]cqf[address] [place] [address]Dr. 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 Soniya Chi Clarity (U) CLEAR Normal CLEAR [facility] Comment on above: Performed By: #### U ACSIND, UMICRO ####[facility] Az[address]taes[address] [place] [address]Dr. Soniya Chi Color (U) LT. YELLOW Normal YELLOW [facility] Comment on above: Performed By: #### U ACSIND, UMICRO ####[facility] M[address]ixqglwn[address] [place] [address]Dr. Soniya Chi Glucose Ql (U) Negative Normal NEGATIVE [facility] Comment on above: Performed By: #### U ACSIND, UMICRO ####[facility] Qvfzjmaavm5[address] [place] [address]Dr. Soniya Chi Hemoglobin Ql (U) Negative Normal NEGATIVE [facility] Comment on above: Performed By: #### U ACSIND, UMICRO ####[facility] Ssazparoam[address] [place] [address]Dr. Soniya Chi Ketones Ql (U) Negative Normal NEGATIVE [facility] Comment on above: Performed By: #### U ACSIND, UMICRO ####[facility] Cckbbwwxff7[address] [place] [address]Dr. Soniya Chi LEUKOCYTES MODERATE Abnormal NEGATIVE [facility] Comment on above: Performed By: #### U ACSIND, UMICRO ####[facility] Hrrqpmlhaj[address] [place] [address]Dr. Soniya Chi Nitrite Ql (U) Negative Normal NEGATIVE [facility] Comment on above: Performed By: #### U ACSIND, UMICRO ####[facility] Bjwgippqrz26[address] [place] [address]Dr. Soniya Chi pH (U) 5.5 [pH] Normal 5-9 [facility] Comment on above: Performed By: #### U ACSIND, UMICRO ####[facility] Hdijcgnnrk5[address] [place] [address]Dr. Soniya Chi SPEC GRAVITY <=1.005 Abnormal 1.005-<=1.025 [facility] Comment on above: Performed By: #### U ACSIND, UMICRO ####[facility] T[address]tupcpki[address] [place] [address]Dr. Soniya Chi UA PROTEIN Negative Normal NEGATIVE/ TRACE [facility] Comment on above: Performed By: #### U ACSLUIS, UMICRO ####[facility] I[address]lzmlcrh[address] [place] [address]Dr. Soniya Chi UR MICRO IND INDICATED Normal [facility] Comment on above: Performed By: #### U ACSLUIS, UMICRO ####[facility] Kpwbesvxma230[address] [place] [address]Dr. Soniya Chi Urobilinogen Qn (U) 0.2 {Casimiro'U}/dL Normal 0.2 - 1.0 [facility] Comment on above: Performed By: #### U ACSLUIS, UMICRO ####[facility] Ugmfvtmfez[address] [place] [address]Dr. Soniya Chi URINE MICROSCOPIC ONLYon BACTERIA TRACE Abnormal NONE SEEN [facility] Comment on above: Performed By: #### U ACSLUIS, UMICRO ####[facility] Brj[address]vjnfc[address] [place], [place] [address]Dr. Soniya Chi Bacteria identified Cx Nom (U) INDICATED Normal [facility] Comment on above: Performed By: #### U PRASHANTH, UMICRO ####[facility] Okfllgybwu[address] [place] [address]Dr. Soniya Chi CAST NONE SEEN Normal NONE SEEN [facility] Comment on above: Performed By: #### U ACSLUIS, UMICRO ####[facility] Drjzxjazew[address] [place], [place] [address]Dr. Soniya Chi Crystals LM Nom (Urine sed) NONE SEEN Normal NONE SEEN [facility] Comment on above: Performed By: #### U ACSLUIS, UMICRO ####[facility] Tngkdtlkmy[address] [place] [address]Dr. Soniya Chi Epithelial cells LM Ql (Urine sed) RARE Normal NONE SEEN /RARE [facility] Comment on above: Performed By: #### U ACSLUIS, UMICRO ####[facility] Xpyrviqriv06[address] [place] [address]Dr. Soniya Chi MUCOUS NONE SEEN Normal NONE SEEN [facility] Comment on above: Performed By: #### U MARCOS ALFORD ####[facility] Idtoeodndz[address] [place] [address]Dr. Soniya Chi RBC NONE SEEN Abnormal 0-2 [facility] Comment on above: Performed By: #### U MARCOS ALFORD ####[facility] Ycfsboggqr8[address] [place] [address]Dr. Soniya Chi WBC 5-10 Abnormal NONE SEEN [facility] Comment on above: Performed By: #### U MARCOS ALFORD ####[facility] Hrflfobskb16[address] [place] [address]Dr. Soniya Chi CBC AUTO DIFFon 08-13-2022 BASO # 0.0 103/ul Normal 0.0-0.1 [facility] Comment on above: Performed By: #### C BC ####[facility] Pljwmr[address]ohu[address] [place], [place] [address]Dr. Soniya Alon Basophils/100 WBC (Bld) 0.2 % Normal 0.2-2.0 [facility] Comment on above: Performed By: #### C BC ####[facility] Xkqjlaavgq[address] [place], [place] [address]Dr. Soniya Chi EO # 0.1 103/ul Normal 0.0-0.7 [facility] Comment on above: Performed By: #### C BC ####[facility] Xghexxsuwc[address] [place], [place] [address]Dr. Soniya Alon Eosinophils/100 WBC (Bld) 1.0 % Normal 0.9-7.0 [facility] Comment on above: Performed By: #### C BC ####[facility] Kypozdzfma[address] [place], [place] [address]Dr. Soniya Chi Erythrocyte distribution width (RBC) [Ratio] 15.1 % Critically high 11.0-15.0 [facility] Comment on above: Performed By: #### C BC ####[facility] [address] [place], [place] [address]Dr. Gypsyjuan Chi Hematocrit (Bld) [Volume fraction] 31.1 % Critically low 36.0-48.0 [facility] Comment on above: Performed By: #### C BC ####[facility] Vdlvehqmkb7361 [place] [address]Dr. Soniya Chi Hemoglobin (Bld) [Mass/Vol] 10.2 g/dL Critically low 12.0-16.0 [facility] Comment on above: Performed By: #### C BC ####[facility] Awbchvpoew56[address] [place] [address]Dr. Soniya Chi IG # 0.01 10e3/ul Normal 0.00-0.03 [facility] Comment on above: Performed By: #### C BC ####[facility] Frhrdqnsdl7135 [place] [address]Dr. Soniya Chi IG % 0.2 % Normal 0.0-0.[address] [facility] Comment on above: Performed By: #### C BC ####[facility] Pnihnoswyt[address] [place], [place] [address]DrKarolina Chi LYMPH # 1.1 103/ul Critically low 1.2-3.8 [facility] Comment on above: Performed By: #### C BC ####[facility] Tuksqitydw7183 [place] [address]DrKarolina Chi Lymphocytes/100 WBC (Bld) 22.5 % Normal 20.5-60.0 [facility] Comment on above: Performed By: #### C BC ####[facility] Bwdeftctpx2197 [place] [address]DrKarolina Chi MANUAL DIFF REQ NO Normal [facility] Comment on above: Performed By: #### C BC ####[facility] Freirtemoe60[address] [place] [address]DrKarolina Chi MCH (RBC) [Entitic mass] 30.5 pg Normal 26.7-34.0 [facility] Comment on above: Performed By: #### C BC ####[facility] Psmafcvrrk[address] [place], [place] [address]Dr. Soniya Chi MCHC (RBC) [Mass/Vol] 32.8 g/dL Normal 29.9-35.2 [facility] Comment on above: Performed By: #### C BC ####[facility] Zpowivcevl0557 [place] [address]Dr. Soniya Chi MCV (RBC) [Entitic vol] 93.1 fL Normal 81.0-99.0 [facility] Comment on above: Performed By: #### C BC ####[facility] Cekcptuzzz6[address] [place] [address]Dr. Gypsyjuan Alon MONO # 0.3 103/ul Normal 0.3-0.8 [facility] Comment on above: Performed By: #### C BC ####[facility] Eyjlaszmfw1132 [place] [address]Dr. Soniya Chi Monocytes/100 WBC (Bld) 6.6 % Normal 1.7-12.0 [facility] Comment on above: Performed By: #### C BC ####[facility] Supkaftfaf[address] [place], [place] [address]Dr. Gypsyjuan Alon NEUT # 3.5 103/ul Normal 1.4-6.5 [facility] Comment on above: Performed By: #### C BC ####[facility] Lfuzwhkolw8[address] [place] [address]Dr. Soniya Chi Neutrophils/100 WBC (Bld) 69.5 % Normal 43.0-75.0 [facility] Comment on above: Performed By: #### C BC ####[facility] Rbtsqrlrjf2282 [place] [address]Dr. Gypsyjuan Alon Platelet mean volume (Bld) [Entitic vol] 10.3 fL Normal 9.5-13.5 [facility] Comment on above: Performed By: #### C BC ####[facility] Mcqaolfjzo[address] [place], [place] [address]Dr. Gypsyjuan Alon PLT 116 103/ul Critically low 150-450 [facility] Comment on above: Performed By: #### C BC ####[facility] Kkbophaotv6[address] [place] [address]Dr. Soniya Chi RBC 3.34 106/ul Critically low 4.20-5.40 [facility] Comment on above: Performed By: #### C BC ####[facility] Udklkkdtaz87[address] [place] [address]Dr. Soniya Chi WBC 5.0 103/ul Normal 4.0-11.[address] [facility] Comment on above: Performed By: #### C BC ####[facility] Ycvltozabw32[address] [place] [address]Dr. Soniya Chi LIVER PROFILEon 08-13-2022 Albumin [Mass/Vol] 3.6 g/dL Normal 3.4-5.0 [facility] Comment on above: Performed By: #### Yue HA BMP ####[facility] Camlwlcofj34[address] [place] [address]Dr. Soniya Chi Albumin/Globulin [Mass ratio] 1.0 {ratio} Normal [facility] Comment on above: Performed By: #### Yue HA, BMP ####[facility] Uohucsofra[address] [place] [address]Dr. Soniya Chi ALP [Catalytic activity/Vol] 111 U/L Normal 46-116 [facility] Comment on above: Performed By: #### Yue HA BMP ####[facility] Eilaqbqhpg1751 [place] [address]Dr. Soniya Chi ALT [Catalytic activity/Vol] 46 U/L Normal 14-59 [facility] Comment on above: Performed By: #### Yue HA, BMP ####[facility] Jbqbtdnipe6395 [place] [address]Dr. Soniya Chi AST [Catalytic activity/Vol] 17 U/L Normal 15-37 [facility] Comment on above: Performed By: #### Yue HA, BMP ####[facility] Qeglhcynuk54[address] [place] [address]Dr. Gypsyjuan Chi BILI, CONJUGATED 0.1 mg/dL Normal 0.0-0.2 [facility] Comment on above: Performed By: #### Yue HA, BMP ####[facility] Acqtjcznwv3325 [place] [address]Dr. Soniya Chi Bilirubin [Mass/Vol] 0.7 mg/dL Normal 0.2-1.0 [facility] Comment on above: Performed By: #### L IVKATHY, BMP ####[facility] Wkjuhbozqv[address] [place], [place] [address]Dr. Soniya Chi Globulin (S) [Mass/Vol] 3.5 g/dL Normal [facility] Comment on above: Performed By: #### L IVKATHY, BMP ####[facility] Dnhcseymsp[address] [place], [place] [address]Dr. Soniya Chi Protein [Mass/Vol] 7.1 g/dL Normal 6.4-8.2 [facility] Comment on above: Performed By: #### L LELAND, BMP ####[facility] Cguaechtsu[address] [place], [place] [address]Dr. Soniya Chi PROF CHEM 8 (BAS METB)on Anion gap [Moles/Vol] 6.8 mmol/L Normal [facility] Comment on above: Performed By: #### L LELAND, BMP ####[facility] Kxbosptqdn[address] [place], [place] [address]Dr. Soniya Chi Calcium [Mass/Vol] 10.1 mg/dL Normal 8.5-10.1 [facility] Comment on above: Performed By: #### L LELAND, BMP ####[facility] Deicgepugb[address] [place], [place] [address]Dr. Soniya Chi Chloride [Moles/Vol] 105 mmol/L Normal 98-107 [facility] Comment on above: Performed By: #### L IVKATHY, BMP ####[facility] Hibcnygsdt[address] [place], [place] [address]Dr. Soniya Chi CO2 [Moles/Vol] 32.4 mmol/L Critically high 21.0-32.[address] [facility] Comment on above: Performed By: #### L IVKATHY, BMP ####[facility] Ufrqdjimkp[address] [place], [place] [address]Dr. Soniya Chi Creatinine [Mass/Vol] 1.25 mg/dL Critically high 0.55-1.[address] [facility] Comment on above: Performed By: #### Yue HA BMP ####[facility] Smgnnjunsz[address] [place], [place] [address]Dr. Soniya Chi EGFR-AF BELIZEAN 52 mL/min/1.73m2 Critically low >=60 [facility] Comment on above: Performed By: #### Yue HA, BMP ####[facility] Awjjzarygr[address] [place], [place] [address]Dr. Soniya Chi EGFR-NON AF BELIZEAN 43 mL/min/1.73m2 Critically low >=60 [facility] Comment on above: Performed By: #### Yue HA, BMP ####[facility] Asmnzcalal[address] [place], [place] [address]Dr. Gypsyjuan Chi Glucose [Mass/Vol] 86 mg/dL Normal 74-106 [facility] Comment on above: Performed By: #### Yue HA, BMP ####[facility] [address]ziqiheznq[address] [place], [place] [address]Dr. Soniya Chi Potassium [Moles/Vol] 3.9 mmol/L Normal 3.5-5.1 [facility] Comment on above: Performed By: #### Yue HA, BMP ####[facility] [address]ysbvplzci[address] [place], [place] [address]Dr. Soniya Chi Sodium [Moles/Vol] 142 mmol/L Normal 136-145 [facility] Comment on above: Performed By: #### Yue HA, BMP ####[facility] [address]ngwqwbxfi[address] [place], [place] [address]Dr. Soniya Chi Urea nitrogen [Mass/Vol] 23.0 mg/dL Critically high 7.0-18.0 [facility] Comment on above: Performed By: #### Yue HA, BMP ####[facility] Xrb[address]jxsya[address] [place], [place] [address]Dr. Gypsyjuan Chi Urea nitrogen/Creatinin e [Mass ratio] 18.4 mg/mg Normal [facility] Comment on above: Performed By: #### Yue HA, BMP ####[facility] Xim[address]ozpn6478 [place], [place] [address]SqKarolina Chi Creatinine and Glomerular fi ltration rate.predicted panel (S/P/Bld)Ordered By: Marlene Guerra on 06-17-2022 Creatinine [Mass/Vol] 1.30 mg/dL 0.44-1.03 [facility] Estimated glomerular filtrat ion rate (GFR) non- AmericanOrdered By: Marlene Guerra on 06-17-2022 GFR/1.73 sq M.predicted among non-blacks MDRD (S/P/Bld) [Vol rate/Area] 41 mL/Min [facility] No Panel InformationOrdered By: Marlene Guerra on [...] 06-17-2022 Anion gap [Moles/Vol] 12.2 mmol/L 6.0-15.0 [facility] Serum or plasma calcium negin urement (mass/volume)Ordered By: Marlene Guerra on 06-17-2022 Calcium [Mass/Vol] 9.3 mg/dL 8.2-10.2 [facility] Serum or plasma chloride russel surement (moles/volume)Ordered By: Marlene Guerra on 06-17-2022 Chloride [Moles/Vol] 100 mmol/L 95-114 [facility] Serum or plasma glucose negin urement (mass/volume)Ordered By: Marlene Guerra on 06-17-2022 Glucose [Mass/Vol] 101 mg/dL 70-100 [facility] Comment on above: ADA recommended refe rence rangeRandom Glucose Reference Range is dependent on time and content of last meal. Glucose of more than 200 mg/dL in a nonstressed, ambulatory subject supports the diagnosis of Diabetes Mellitus. Serum or plasma potassium me asurement (moles/volume)Ordered By: Marlene Guerra on 06-17-2022 Potassium [Moles/Vol] 3.8 mmol/L 3.5-5.1 [facility] Serum or plasma sodium measu rement (moles/volume)Ordered By: Marlene Guerra on 06-17-2022 Sodium [Moles/Vol] 135 mmol/L 136-146 [facility] Serum or plasma total carbon dioxide measurement (moles/volume)Ordered By: Marlene Guerra on 06-17-2022 CO2 [Moles/Vol] 26.6 mmol/L 22.0-30.0 [facility] Serum or plasma urea nitroge n measurement (mass/volume)Ordered By: Marlene Guerra on 06-17-2022 Urea nitrogen [Mass/Vol] 26 mg/dL 9-23 [facility] Basophils Auto (Bld) [#/Vol] Ordered By: Marlene Guerra on 06-15-2022 Basophils (Bld) [#/Vol] 0.0 10*3/uL 0.0-0.2 [facility] Basophils/100 WBC Auto (Bld) Ordered By: Marlene Guerra on 06-15-2022 Basophils/100 WBC (Bld) 0.5 % . [facility] Eosinophils Auto (Bld) [#/Vo l]Ordered By: Marlene Guerra on 06-15-2022 Eosinophils (Bld) [#/Vol] 0.0 10*3/uL 0.0-0.45 [facility] Eosinophils/100 WBC Auto (Bl d)Ordered By: Marlene Guerra on 06-15-2022 Eosinophils/100 WBC (Bld) 0.3 % . [facility] Erythrocyte distribution wid th Auto (RBC) [Ratio]Ordered By: Marlene Guerra on 06-15-2022 Erythrocyte distribution width (RBC) [Ratio] 15.6 % 11.9-15.3 [facility] Hematocrit Auto (Bld) [Volum e fraction]Ordered By: Marlene Guerra on 06-15-2022 Hematocrit (Bld) [Volume fraction] 34.4 % 34.0-46.4 [facility] Hemoglobin [Mass/volume] in BloodOrdered By: aMrlene Guerra on 06-15-2022 Hemoglobin (Bld) [Mass/Vol] 11.2 g/dL 11.8-15.4 [facility] Influenza virus A and B anti gen detection by immunoassayOrdered By: Kassandra Vasquez on 06-15-2022 FLUAV+FLUBV Ag IA Ql (Unsp spec) [facility] Leukocytes [#/volume] correc scott for nucleated erythrocytes in Blood by Automated counOrdered By: Marlene Guerra on 06-15-2022 WBC corrected for nucl RBC Auto (Bld) [#/Vol] 8.2 10*3/uL 3.8-11.6 [facility] Lymphocytes Auto (Bld) [#/Vo l]Ordered By: Marlene [...] 06-15-2022 MCHC (RBC) [Mass/Vol] 32.7 g/dL 32.0-35.0 [facility] MCV Auto (RBC) [Entitic vol] Ordered By: Marlene Guerra on 06-15-2022 MCV (RBC) [Entitic vol] 90.5 fL 80-100 [facility] Monocytes Auto (Bld) [#/Vol] Ordered By: Marlene Guerra on 06-15-2022 Monocytes (Bld) [#/Vol] 0.8 10*3/uL 0.0-0.8 [facility] Monocytes/100 WBC Auto (Bld) Ordered By: Marlene Guerra on 06-15-2022 Monocytes/100 WBC (Bld) 9.8 % . [facility] Neutrophils Auto (Bld) [#/Vo l]Ordered By: Marlene [...] volume (Bld) [Entitic vol] 7.9 fL 6.3-10.7 [facility] Platelets Auto (Bld) [#/Vol] Ordered By: Marlene Guerra on 06-15-2022 Platelets (Bld) [#/Vol] 209 10*3/uL 150-450 [facility] RBC Auto (Bld) [#/Vol]Ordere d By: Marlene Guerra on 06-15-2022 RBC (Bld) [#/Vol] 3.80 10*6/uL 3.60-5.00 [facility] Urine culture routineOrdered By: Marlene Guerra on 06-15-2022 Bacteria identified Cx Nom (U) 2 Days [facility] WBC Auto (Bld) [#/Vol]Ordere d By: Marlene Guerra on 06-15-2022 WBC (Bld) [#/Vol] 8.2 10*3/uL 3.8-11.6 [facility] Albumin [Mass/volume] in Ser um or PlasmaOrdered By: Marty Mclean on 06-14-2022 Albumin [Mass/Vol] 4.0 g/dL 3.2-5.5 [facility] Automated erythrocytes count in urine sediment (number/area)Ordered By: Marty Mclean on 06-14-2022 RBC Auto (Urine sed) [#/Area] 0-1 [HPF] 0-4 [facility] Automated leukocytes count i n urine sediment (number/area)Ordered By: Marty Mclean on 06-14-2022 WBC Auto (Urine sed) [#/Area] None seen [HPF] 0-4 [facility] Bilirubin Test strip Ql (U)O rdered By: Marty Mclean on 06-14-2022 Bilirubin Ql (U) Negative Negative [facility] COVID-19 SOFIAOrdered By: Ab aziza Mclean on 06-14-2022 SARS-CoV+SARS-CoV- 2 (COVID-19) Ag IA.rapid Ql (Resp) Negative Negative [facility] Comment on above: This is a duplicate Stefania SARS Antigen (CHU) result to be used for statistical tracking purpose only. Color Auto (U)Ordered By: Ab aziza Mclean on 06-14-2022 Color (U) Yellow Yellow [facility] Globulin Calc (S) [Mass/Vol] Ordered By: Marty Mclean on 06-14-2022 Globulin (S) [Mass/Vol] 3.5 g/dL [facility] Ketones Auto test strip (U) [Mass/Vol]Ordered By: Marty Mclean on 06-14-2022 Ketones (U) [Mass/Vol] Negative Negative [facility] Laboratory - UrinalysisOrder ed By: Marty Mclean on 06-14-2022 Hyaline casts LM Ql (Urine sed) None seen [LPF] 0-8 [facility] Monocyte %Ordered By: Marlene Guerra on 06-14-2022 Monocyte % 10 umol/L 11-35 [facility] Nitrite Test strip Ql (U)Ord ered By: Marty Mclean on 06-14-2022 Nitrite Ql (U) Negative Negative [facility] Protein Auto test strip (U) [Mass/Vol]Ordered By: Marty Mclean on 06-14-2022 Protein (U) [Mass/Vol] Negative Negative [facility] Protein [Mass/volume] in Ser um or PlasmaOrdered By: Marty Mclean on 06-14-2022 Protein [Mass/Vol] 7.5 g/dL 6.1-7.9 [facility] Serum or plasma alanine reyes otransferase measurement without P-5'-P (enzymatic activiOrdered By: Marty Mclean on 06-14-2022 ALT No additional P-5'-P [Catalytic activity/Vol] 25 U/L 10-60 [facility] Serum or plasma albumin/glob ulin mass ratioOrdered [...] on 06-14-2022 Bilirubin [Mass/Vol] 0.9 mg/dL 0.3-1.2 [facility] Specific gravity Auto test s trip (U) [Rel density]Ordered By: Marty Mclean on 06-14-2022 Specific gravity (U) [Rel density] 1.018 1.001-1.030 [facility] Squamous epithelial cells de tection in urine sediment by light microscopyOrdered By: Marty Mclean on 06-14-2022 Epithelial cells.squamous LM Ql (Urine sed) None seen [HPF] 0-2 [facility] Urine bacteria detection by automated methodOrdered By: Marty Mclean on 06-14-2022 Bacteria Auto Ql (U) None seen None Seen [facility] Urine clarity by refractomet ry automatedOrdered By: Marty Mclean on 06-14-2022 Clarity Refractometry automated (U) Clear Clear [facility] Urine glucose measurement by automated test strip (mass/volume)Ordered By: Marty Mclean on 06-14-2022 Glucose Auto test strip (U) [Mass/Vol] Normal mg/dL Normal [facility] Urine hemoglobin detection b y automated test stripOrdered By: Marty Mclean on 06-14-2022 Hemoglobin Auto test strip Ql (U) Negative Negative [facility] Urine leukocyte esterase det ection by automated test stripOrdered By: Marty Mclean on 06-14-2022 Leukocyte esterase Auto test strip Ql (U) Negative Negative [facility] Urobilinogen Auto test strip (U) [Mass/Vol]Ordered By: Marty Mclean on 06-14-2022 Urobilinogen (U) [Mass/Vol] Normal mg/dL Normal [facility] pH Auto test strip (U)Ordere d By: Marty Mclean on 06-14-2022 pH (U) 6.0 [pH] 5.0-9.0 [facility] Triiodothyronine (T3) Free [ Mass/volume] in Serum or PlasmaOrdered By: Anca Wheeler on 06-02-2022 Free T3 [Mass/Vol] 2.78 pg/mL 2.50-3.[address] [facility] [address] biopsyOrdered By: Anca walter on 06-01-2022 Transferrin [Mass/Vol] 207 mg/dL 180-380 [facility] Ferritin [Mass/volume] in Se rum or PlasmaOrdered By: Anca Wheeler on 06-01-2022 Ferritin [Mass/Vol] 212.1 ng/mL 11-306.8 [facility] Folate [Mass/volume] in Seru m or PlasmaOrdered By: Anca Wheeler on 06-01-2022 Folate [Mass/Vol] 5.6 ng/mL >5.9 [facility] Comment on above: Folate reference ran ge: >5.9 ng/mlThe WHO technical consultation on folate and vitamin [id number] has determined that folate concentrations lessthan 4 ng/ml are considered deficient. Iron [Mass/volume] in Serum or PlasmaOrdered By: Anca Wheeler on 06-01-2022 Iron [Mass/Vol] 51 ug/dL 40-150 [facility] Iron binding capacity [Mass/ volume] in Serum or PlasmaOrdered By: Anca Wheeler on 06-01-2022 Iron binding capacity [Mass/Vol] 290 ug/dL 255-450 [facility] Iron saturation [Mass Fracti on] in Serum or PlasmaOrdered By: Anca Wheeler on 06-01-2022 Iron saturation [Mass fraction] 17.6 % 20-50 [facility] Laboratory - Chemistry and C hemistry - challengeOrdered By: Anca Wheeler on 06-01-2022 Cobalamin (Vitamin B12) [Mass/Vol] 452 pg/mL 180-914 [facility] TSH DL <= 0.005 mIU/L QnOrde red By: Anca Wheeler on 06-01-2022 TSH Qn 2.65 m[IU]/L 0.45-5.33 [facility] Casts typing in urine sedime nt by light microscopyOrdered By: Reggie Quintana on 05-31-2022 Casts LM Nom (Urine sed) None seen [LPF] None Seen [facility] Cholesterol [Mass/volume] in Serum or PlasmaOrdered By: Reggie Quintana on 05-31-2022 Cholesterol [Mass/Vol] 139 mg/dL 140-200 [facility] Comment on above: Chol less than 200 [...] VLDL [Mass/Vol] 16 mg/dL [facility] Fine granular cast count in urine sediment by microscopy (number/low power field )Ordered By: Reggie Quintana on 05-31-2022 Fine Granular Casts LM.LPF (Urine sed) [#/Area] 1-2 [LPF] 0-1 [facility] Mucus LM Ql (Urine sed)Order ed By: Reggie Quintana on 05-31-2022 Mucus Ql (Urine sed) 4+ [LPF] [facility] No Panel InformationOrdered By: Reggie Quintana on [...] lipoprotein (HDL) cholesterol mass ratOrdered By: Reggie Qunitana on 05-31-2022 Cholesterol.total/ Cholesterol in HDL [Mass ratio] 1.9 {ratio} <5.0 [facility] Triglyceride [Mass/volume] i n Serum or PlasmaOrdered By: Reggie Quintana on 05-31-2022 Triglyceride [Mass/Vol] 81 mg/dL 35-149 [facility] Comment on above: TRIG ATP III CLASSIF ICATIONTRIG less than 150 mg/dL NormalTRIG 150-199 mg/dL Borderline highTRIG 200-500 mg/dL High TRIG greater than 500 mg/dL Very highStandard traceable to the Center for Disease Conrtrol and Prevention (CDC) test method. Urine sediment uric acid cry stal count by microscopy (number/high power field)Ordered By: Reggie Quintana on 05-31-2022 Urate crystals LM.HPF (Urine sed) [#/Area] 3+ [HPF] [facility] CBC AUTO DIFFon 05-30-2022 BASO # 0.0 103/ul Normal 0.0-0.[address] [facility] Comment on above: Performed By: #### C BC ####[facility] [address] [place] [id number]. Soniya Chi Basophils/100 WBC (Bld) 0.2 % Normal 0.2-2.0 [facility] Comment on above: Performed By: #### C BC ####[facility] [address] [place] [address]Dr. Soniya Alon EO # 0.1 103/ul Normal 0.0-0.7 [facility] Comment on above: Performed By: #### C BC ####[facility] [address] [place] [address]Dr. Gypsyjuan Chi Eosinophils/100 WBC (Bld) 1.0 % Normal 0.9-7.0 [facility] Comment on above: Performed By: #### C BC ####[facility] [address] [place] [address]Dr. Gypsyjuan Chi Erythrocyte distribution width (RBC) [Ratio] 14.4 % Normal 11.0-15.[address] [facility] Comment on above: Performed By: #### C BC ####[facility] [address] [place] [id number]. Soniya Chi Hematocrit (Bld) [Volume fraction] 30.0 % Critically low 36.0-48.[address] [facility] Comment on above: Performed By: #### C BC ####[facility] [address] [place] [address]Dr. Soniya Chi Hemoglobin (Bld) [Mass/Vol] 9.7 g/dL Critically low 12.0-16.[address] [facility] Comment on above: Performed By: #### C BC ####[facility] [address] [place] [id number]. Soniya Chi IG # 0.04 10e3/ul Critically high 0.00-0.03 [facility] Comment on above: Performed By: #### C BC ####[facility] [address] [place] [id number]. Soniya Chi IG % 0.5 % Normal 0.0-0.[address] [facility] Comment on above: Performed By: #### C BC ####[facility] [address]qu[address] [place] [address]Dr. Soniya Chi LYMPH # 0.8 103/ul Critically low 1.2-3.8 [facility] Comment on above: Performed By: #### C BC ####[facility] [address]exk[address] [place] [address]Dr. Soniya Chi Lymphocytes/100 WBC (Bld) 10.0 % Critically low 20.5-60.[address] [facility] Comment on above: Performed By: #### C BC ####[facility] [address] [place] [id number]. Soniya Chi MANUAL DIFF REQ NO Normal [facility] Comment on above: Performed By: #### C BC ####[facility] [address] [place] [id number]. Soniya Chi MCH (RBC) [Entitic mass] 29.8 pg Normal 26.7-34.[address] [facility] Comment on above: Performed By: #### C BC ####[facility] [address]xzi[address] [place] [id number]. Soniya Chi MCHC (RBC) [Mass/Vol] 32.3 g/dL Normal 29.9-35.2 [facility] Comment on above: Performed By: #### C BC ####[facility] [address]xvifsruz[address] [place] [id number]. Soniya Chi MCV (RBC) [Entitic vol] 92.3 fL Normal 81.0-99.0 [facility] Comment on above: Performed By: #### C BC ####[facility] Jashnciawy[address] [place] [id number]. Soniya Alon MONO # 0.8 103/ul Normal 0.3-0.[address] [facility] Comment on above: Performed By: #### C BC ####[facility] [address]kfpsjpoh[address] [place] [address]Dr. Soniya Chi Monocytes/100 WBC (Bld) 9.4 % Normal 1.7-12.[address] [facility] Comment on above: Performed By: #### C BC ####[facility] T[address]okqqfdm[address] [place] [address]Dr. Soniya Chi NEUT # 6.5 103/ul Normal 1.4-6.[address] [facility] Comment on above: Performed By: #### C BC ####[facility] [address]itwfq[address] [place] [address]Dr. Soniya Alon Neutrophils/100 WBC (Bld) 78.9 % Critically high 43.0-75.[address] [facility] Comment on above: Performed By: #### C BC ####[facility] [address]pemgk[address] [place] [id number]. Soniya Chi Platelet mean volume (Bld) [Entitic vol] 10.2 fL Normal 9.5-13.[address] [facility] Comment on above: Performed By: #### C BC ####[facility] [address]wts[address] [place] [id number]. Soniya Chi PLT 103 103/ul Critically low 150-450 [facility] Comment on above: Performed By: #### C BC ####[facility] Lk[address]qpfnhj[address] [place] [address]Dr. Gypsyjuan Chi RBC 3.25 106/ul Critically low 4.20-5.40 [facility] Comment on above: Performed By: #### C BC ####[facility] [address]tc[address] [place] [id number]. Gypsyjuan Chi WBC 8.2 103/ul Normal 4.0-11.[address] [facility] Comment on above: Performed By: #### C BC ####[facility] [address] [place] [id number]. Soniya Chi PROF 14(COMP METB)on 05-30- 022 Albumin [Mass/Vol] 2.8 g/dL Critically low 3.4-5.0 [facility] Comment on above: Performed By: #### C MP ####[facility] X[address]azfmxls[address] [place] [id number]. Soniya Alon Albumin/Globulin [Mass ratio] 0.8 {ratio} Normal [facility] Comment on above: Performed By: #### C MP ####[facility] [address]sstrl[address]yo[address] [place] [id number]. Soniya Chi ALP [Catalytic activity/Vol] 78 U/L Normal 46-[address] [facility] Comment on above: Performed By: #### C MP ####[facility] T[address]armq[address] [place] [id number]. Soniya Chi ALT [Catalytic activity/Vol] 26 U/L Normal 14-[address] [facility] Comment on above: Performed By: #### C MP ####[facility] [address]qfltrpd[address] [place] [address]Dr. Soniya Chi Anion gap [Moles/Vol] 11.3 mmol/L Normal [facility] Comment on above: Performed By: #### C MP ####[facility] Rszpinwkiv[address] [place] [address]Dr. Soniya Chi AST [Catalytic activity/Vol] 35 U/L Normal 15-[address] [facility] Comment on above: Performed By: #### C MP ####[facility] [address]axr[address] [place] [address]Dr. Soniya Chi Bilirubin [Mass/Vol] 0.9 mg/dL Normal 0.2-1.[address] [facility] Comment on above: Performed By: #### C MP ####[facility] [address]ks[address]wbq[address] [place] [id number]. Soniya Chi Calcium [Mass/Vol] 9.2 mg/dL Normal 8.5-10.1 [facility] Comment on above: Performed By: #### C MP ####[facility] [address]ek[address] [place] [address]Dr. Soniya Chi Chloride [Moles/Vol] 113 mmol/L Critically high 98-107 [facility] Comment on above: Performed By: #### C MP ####[facility] Lbatqghfps[address] [place] [address]Dr. Soniya Chi CO2 [Moles/Vol] 26.5 mmol/L Normal 21.0-32.0 [facility] Comment on above: Performed By: #### C MP ####[facility] Fybaxjyqey[address] [place] [address]Dr. Soniya Chi Creatinine [Mass/Vol] 1.21 mg/dL Critically high 0.55-1.02 [facility] Comment on above: Performed By: #### C MP ####[facility] [address]ys[address]pm[address]ip[address] [place] [address]Dr. Soniya Chi EGFR-AF BELIZEAN 54 mL/min/1.73m2 Critically low >=60 [facility] Comment on above: Performed By: #### C MP ####[facility] [address]iaqtysbqv[address] [place] [address]Dr. Soniya Chi EGFR-NON AF BELIZEAN 44 mL/min/1.73m2 Critically low >=60 [facility] Comment on above: Performed By: #### C MP ####[facility] Fnlljiaszp27[address] [place] [address]Dr. Soniya Chi Globulin (S) [Mass/Vol] 3.6 g/dL Normal [facility] Comment on above: Performed By: #### C MP ####[facility] Ixwttnclcm[address] [place] [address]Dr. Soniya Chi Glucose [Mass/Vol] 101 mg/dL Normal 74-106 [facility] Comment on above: Performed By: #### C MP ####[facility] Uinkeuyqhl[address] [place] [address]Dr. Soniya Chi Potassium [Moles/Vol] 3.8 mmol/L Normal 3.5-5.1 [facility] Comment on above: Performed By: #### C MP ####[facility] Huqietxqsg59[address] [place] [address]Dr. Soniya Chi Protein [Mass/Vol] 6.4 g/dL Normal 6.4-8.2 [facility] Comment on above: Performed By: #### C MP ####[facility] Pdwoixedaf4211 [place] [address]Dr. Soniya Chi Sodium [Moles/Vol] 147 mmol/L Critically high 136-145 [facility] Comment on above: Performed By: #### C MP ####[facility] Xqgwurnblz74[address] [place] [address]Dr. Soniya Chi Urea nitrogen [Mass/Vol] 18.0 mg/dL Normal 7.0-18.[address] [facility] Comment on above: Performed By: #### C MP ####[facility] [address]zroojbkvh8[address] [place] [address]Dr. Soniya Chi Urea nitrogen/Creatinin e [Mass ratio] 14.9 mg/mg Normal [facility] Comment on above: Performed By: #### C MP ####[facility] Xbefmkzbjx08[address] [place] [address]Dr. Soniya Chi PROF CHEM 8 (BAS METB)on Anion gap [Moles/Vol] 9.9 mmol/L Normal [facility] Comment on above: Performed By: #### B MP ####[facility] Wseyyhyftb[address] [place] [address]Dr. Soniya Chi Calcium [Mass/Vol] 9.0 mg/dL Normal 8.5-10.1 [facility] Comment on above: Performed By: #### B MP ####[facility] Xtxswuverd[address] [place] [address]Dr. Soniya Chi Chloride [Moles/Vol] 114 mmol/L Critically high 98-[address] [facility] Comment on above: Performed By: #### B MP ####[facility] Oxoneuxbos6116 [place] [address]Dr. Soniya Chi CO2 [Moles/Vol] 28.0 mmol/L Normal 21.0-32.0 [facility] Comment on above: Performed By: #### B MP ####[facility] Zynenhmtss60[address] [place] [address]Dr. Soniya Chi Creatinine [Mass/Vol] 1.37 mg/dL Critically high 0.55-1.[address] [facility] Comment on above: Performed By: #### B MP ####[facility] Ljmmnvglje[address] [place] [address]Dr. Soniya Alon EGFR-AF BELIZEAN 47 mL/min/1.73m2 Critically low >=[address] [facility] Comment on above: Performed By: #### B MP ####[facility] Viskjufuyl19[address] [place] [address]Dr. Gypsyjuan Alon EGFR-NON AF BELIZEAN 38 mL/min/1.73m2 Critically low >=[address] [facility] Comment on above: Performed By: #### B MP ####[facility] Yhexlqyucz025[address] [place] [address]Dr. Soniya Chi Glucose [Mass/Vol] 104 mg/dL Normal 74-106 [facility] Comment on above: Performed By: #### B MP ####[facility] Kyypqxkbdm34[address] [place] [address]Dr. Soniya Chi Potassium [Moles/Vol] 2.9 mmol/L Critically low 3.5-5.[address] [facility] Comment on above: Performed By: #### B MP ####[facility] Ymmzxewwzb8[address] [place] [address]Dr. Soniya Chi Sodium [Moles/Vol] 147 mmol/L Critically high 136-145 [facility] Comment on above: Performed By: #### B MP ####[facility] Bbycgqrsie96[address] [place] [address]Dr. Soniya Chi Urea nitrogen [Mass/Vol] 18.0 mg/dL Normal 7.0-18.[address] [facility] Comment on above: Performed By: #### B MP ####[facility] Rcuzgrqrsf1704 [place] [id number]. Soniya Chi Urea nitrogen/Creatinin e [Mass ratio] 13.1 mg/mg Normal [facility] Comment on above: Performed By: #### B MP ####[facility] Fxluafpzwm[address] [place] [address]Dr. Soniya Chi CBC AUTO DIFFon 05-29-2022 BASO # 0.0 103/ul Normal 0.0-0.[address] [facility] Comment on above: Performed By: #### C BC ####[facility] Vwek[address] [place], [place] [address]Dr. Soniya Chi Basophils/100 WBC (Bld) 0.2 % Normal 0.2-2.0 [facility] Comment on above: Performed By: #### C BC ####[facility] Dnepxuhqkt[address] [place], [place] [address]Dr. Soniya Chi EO # 0.0 103/ul Normal 0.0-0.7 [facility] Comment on above: Performed By: #### C BC ####[facility] [address]drbns[address] [place], [place] [address]Dr. Soniya Chi Eosinophils/100 WBC (Bld) 0.5 % Critically low 0.9-7.[address] [facility] Comment on above: Performed By: #### C BC ####[facility] [address] [place], [place] [address]Dr. Soniya Chi Erythrocyte distribution width (RBC) [Ratio] 14.3 % Normal 11.0-15.0 [facility] Comment on above: Performed By: #### C BC ####[facility] [address]tpm[address] [place], [place] [address]Dr. Soniya Cih Hematocrit (Bld) [Volume fraction] 30.1 % Critically low 36.0-48.[address] [facility] Comment on above: Performed By: #### C BC ####[facility] [address]gtjl[address] [place], [place] [address]Dr. Soniya Chi Hemoglobin (Bld) [Mass/Vol] 9.7 g/dL Critically low 12.0-16.0 [facility] Comment on above: Performed By: #### C BC ####[facility] Lerpheglfj[address] [place], [place] [address]Dr. Soniya Chi IG # 0.02 10e3/ul Normal 0.00-0.03 [facility] Comment on above: Performed By: #### C BC ####[facility] Rfezanjmes[address] [place], [place] [address]Dr. Soniya Chi IG % 0.3 % Normal 0.0-0.[address] [facility] Comment on above: Performed By: #### C BC ####[facility] Kuwpizqest74[address] [place] [address]Dr. Soniya Chi LYMPH # 0.9 103/ul Critically low 1.2-3.8 [facility] Comment on above: Performed By: #### C BC ####[facility] Vkuwvfoijt0935 [place] [address]Dr. Gypsyjuan Chi Lymphocytes/100 WBC (Bld) 13.8 % Critically low 20.5-60.0 [facility] Comment on above: Performed By: #### C BC ####[facility] [address]cov[address] [place], [place] [address]Dr. Soniya Chi MANUAL DIFF REQ NO Normal [facility] Comment on above: Performed By: #### C BC ####[facility] [address]vsjubidjc26[address] [place] [address]Dr. Soniya Chi MCH (RBC) [Entitic mass] 29.8 pg Normal 26.7-34.[address] [facility] Comment on above: Performed By: #### C BC ####[facility] [address] [place], [place] [address]Dr. Soniya Alon MCHC (RBC) [Mass/Vol] 32.2 g/dL Normal 29.9-35.2 [facility] Comment on above: Performed By: #### C BC ####[facility] [address] [place], [place] [address]Dr. Soniya Chi MCV (RBC) [Entitic vol] 92.6 fL Normal 81.0-99.0 [facility] Comment on above: Performed By: #### C BC ####[facility] [address]mlcj[address] [place], [place] [address]Dr. Soniya Chi MONO # 0.7 103/ul Normal 0.3-0.8 [facility] Comment on above: Performed By: #### C BC ####[facility] [address]knq[address] [place] [address]Dr. Soniya Chi Monocytes/100 WBC (Bld) 10.5 % Normal 1.7-12.[address] [facility] Comment on above: Performed By: #### C BC ####[facility] [address]uxqczkqdc[address] [place] [address]Dr. Soniya Chi NEUT # 4.8 103/ul Normal 1.4-6.[address] [facility] Comment on above: Performed By: #### C BC ####[facility] Nasuxxzpte4542 [place] [address]Dr. Soniya Chi Neutrophils/100 WBC (Bld) 74.7 % Normal 43.0-75.0 [facility] Comment on above: Performed By: #### C BC ####[facility] Rjueufzloa9715 [place] [address]Dr. Soniya Chi Platelet mean volume (Bld) [Entitic vol] 10.6 fL Normal 9.5-13.[address] [facility] Comment on above: Performed By: #### C BC ####[facility] Xftijapfyh3851 [place] [address]Dr. Soniya Chi PLT 114 103/ul Critically low 150-450 [facility] Comment on above: Performed By: #### C BC ####[facility] Ysylcmfihn[address] [place], [place] [address]Dr. Soniya Chi RBC 3.25 106/ul Critically low 4.20-5.40 [facility] Comment on above: Performed By: #### C BC ####[facility] Uyuqyrbzfb1436 [place] [address]Dr. Soniya Chi WBC 6.4 103/ul Normal 4.0-11.0 [facility] Comment on above: Performed By: #### C BC ####[facility] Quonfrwpeh6916 [place] [address]Dr. Soniya Chi CORTISOLon 05-29-2022 Cortisol 24.0 ug/dL Normal [facility] Comment on above: Result Comment: Javi isol AM 6.2 - 19.4 Cortisol PM 2.3 - 11.9 Performed By: #### C ORTISO ####[facility] Gsbfpwsxqh[address] [place], [place] [address]Dr. Soniya Chi CULTURE URINEon 05-29-2022 CULTURE URINE Normal [facility] Comment on above: Performed By: #### U RCX ####[facility] Mwdvnbwjbx9620 [place] [address]Dr. Soniya Alon PROF CHEM 8 (BAS METB)on Anion gap [Moles/Vol] 11.9 mmol/L Normal [facility] Comment on above: Performed By: #### B MP ####[facility] Doylkvfyng8085 [place] [address]Dr. Soniya Alon Calcium [Mass/Vol] 9.6 mg/dL Normal 8.5-10.1 [facility] Comment on above: Performed By: #### B MP ####[facility] Rfxbzahagf[address] [place], [place] [address]Dr. Soniya Alon Chloride [Moles/Vol] 110 mmol/L Critically high 98-107 [facility] Comment on above: Performed By: #### B MP ####[facility] Fyyrviuiav[address] [place], [place] [address]Dr. Soniya Alon CO2 [Moles/Vol] 25.4 mmol/L Normal 21.0-32.0 [facility] Comment on above: Performed By: #### B MP ####[facility] Ggvidhvxkj[address] [place], [place] [address]Dr. Soniya Alon Creatinine [Mass/Vol] 1.24 mg/dL Critically high 0.55-1.[address] [facility] Comment on above: Performed By: #### B MP ####[facility] Kfutptmlqm5493 [place] [address]Dr. Soniya Chi EGFR-AF BELIZEAN 52 mL/min/1.73m2 Critically low >=60 [facility] Comment on above: Performed By: #### B MP ####[facility] Gppedfyutx1769 [place] [address]Dr. Soniya Chi EGFR-NON AF BELIZEAN 43 mL/min/1.73m2 Critically low >=60 [facility] Comment on above: Performed By: #### B MP ####[facility] Dijuduhglq9034 [place] [id number]. Soniya Chi Glucose [Mass/Vol] 111 mg/dL Critically high 74-106 [facility] Comment on above: Performed By: #### B MP ####[facility] Ingxmqjhno1854 [place] [address]Dr. Soniya Chi Potassium [Moles/Vol] 3.3 mmol/L Critically low 3.5-5.[address] [facility] Comment on above: Performed By: #### B MP ####[facility] Kllrkblqqm0232 [place] [address]Dr. Soniya Alon Sodium [Moles/Vol] 144 mmol/L Normal 136-145 [facility] Comment on above: Performed By: #### B MP ####[facility] Jdhunegscb[address] [place], [place] [address]Dr. Soniya Alon Urea nitrogen [Mass/Vol] 17.0 mg/dL Normal 7.0-18.[address] [facility] Comment on above: Performed By: #### B MP ####[facility] Ieyiofqpwe884[address] [place], [place] [address]Dr. Soniya Alon Urea nitrogen/Creatinin e [Mass ratio] 13.7 mg/mg Normal [facility] Comment on above: Performed By: #### B MP ####[facility] Ybwcitqyoo9112 [place] [address]Dr. Soniya Alon CBC AUTO DIFFon 05-28-2022 BASO # 0.0 103/ul Normal 0.0-0.[address] [facility] Comment on above: Performed By: #### C BC ####[facility] Igzzrkkjpy3468 [place] [address]Dr. Soniya Alon Basophils/100 WBC (Bld) 0.2 % Normal 0.2-2.[address] [facility] Comment on above: Performed By: #### C BC ####[facility] Mkzlyrxzpt9[address] [place], [place] [address]Dr. Soniya Chi EO # 0.0 103/ul Normal 0.0-0.[address] [facility] Comment on above: Performed By: #### C BC ####[facility] Ysnapptgbs3265 [place] [id number]. Soniya Chi Eosinophils/100 WBC (Bld) 0.3 % Critically low 0.9-7.[address] [facility] Comment on above: Performed By: #### C BC ####[facility] Oxmhepujpx1523 [place] [address]Dr. Soniya Chi Erythrocyte distribution width (RBC) [Ratio] 14.4 % Normal 11.0-15.0 [facility] Comment on above: Performed By: #### C BC ####[facility] Bdcooraxfg407[address] [place], [place] [address]Dr. Soniya Chi Hematocrit (Bld) [Volume fraction] 30.3 % Critically low 36.0-48.[address] [facility] Comment on above: Performed By: #### C BC ####[facility] Vcmgllndfx[address] [place], [place] [address]Dr. Soniya Chi Hemoglobin (Bld) [Mass/Vol] 9.9 g/dL Critically low 12.0-16.[address] [facility] Comment on above: Performed By: #### C BC ####[facility] Fcbzquzswd345[address] [place], [place] [address]Dr. Soniya Chi IG # 0.02 10e3/ul Normal 0.00-0.03 [facility] Comment on above: Performed By: #### C BC ####[facility] Gouhpmpnir899[address] [place], [place] [address]Dr. Soniya Chi IG % 0.3 % Normal 0.0-0.5 [facility] Comment on above: Performed By: #### C BC ####[facility] Eqfejskuvz5320[address] [place], [place] [address]Dr. Soniya Chi LYMPH # 0.7 103/ul Critically low 1.2-3.8 [facility] Comment on above: Performed By: #### C BC ####[facility] Yjaatjntjr[address] [place], [place] [address]Dr. Soniya Chi Lymphocytes/100 WBC (Bld) 11.7 % Critically low 20.5-60.[address] [facility] Comment on above: Performed By: #### C BC ####[facility] Jvpxydakiw1570 [place] [address]Dr. Soniya Chi MANUAL DIFF REQ NO Normal [facility] Comment on above: Performed By: #### C BC ####[facility] Crgqqhnppa0999 [place] [address]Dr. Soniya Chi MCH (RBC) [Entitic mass] 29.8 pg Normal 26.7-34.[address] [facility] Comment on above: Performed By: #### C BC ####[facility] Kcpipjyqad0316 [place] [address]Dr. Soniya Chi MCHC (RBC) [Mass/Vol] 32.7 g/dL Normal 29.9-35.2 [facility] Comment on above: Performed By: #### C BC ####[facility] Vcnewpqfxi[address] [place], [place] [address]Dr. Soniya Chi MCV (RBC) [Entitic vol] 91.3 fL Normal 81.0-99.[address] [facility] Comment on above: Performed By: #### C BC ####[facility] H[address]vsutmlol[address] [place], [place] [address]Dr. Soniya Chi MONO # 0.5 103/ul Normal 0.3-0.[address] [facility] Comment on above: Performed By: #### C BC ####[facility] Rkimmgjlsi[address] [place], [place] [address]Dr. Soniya Chi Monocytes/100 WBC (Bld) 8.3 % Normal 1.7-12.0 [facility] Comment on above: Performed By: #### C BC ####[facility] Lvtphqqurh[address] [place], [place] [address]Dr. Soniya Chi NEUT # 4.8 103/ul Normal 1.4-6.5 [facility] Comment on above: Performed By: #### C BC ####[facility] Rsunqiyhoo[address] [place], [place] [address]Dr. Soniya Chi Neutrophils/100 WBC (Bld) 79.2 % Critically high 43.0-75.[address] [facility] Comment on above: Performed By: #### C BC ####[facility] Qmvdsnmrix0829 [place] [address]Dr. Soniya Chi Platelet mean volume (Bld) [Entitic vol] 10.4 fL Normal 9.5-13.5 [facility] Comment on above: Performed By: #### C BC ####[facility] Dipptrruuh4745 [place] [address]Dr. Soniya Chi PLT 112 103/ul Critically low 150-450 [facility] Comment on above: Performed By: #### C BC ####[facility] Uxwebarfna0085 [place] [address]Dr. Soniya Chi RBC 3.32 106/ul Critically low 4.20-5.40 [facility] Comment on above: Performed By: #### C BC ####[facility] Jgwwobgzlo7[address] [place], [place] [address]Dr. Soniya Chi WBC 6.1 103/ul Normal 4.0-11.0 [facility] Comment on above: Performed By: #### C BC ####[facility] Agqimocjif118[address] [place], [place] [address]Dr. Soniya Chi BASO # 0.0 103/ul Normal 0.0-0.1 [facility] Comment on above: Performed By: #### C BC ####[facility] Hfqsitymda89[address] [place], [place] [address]Dr. Soniya Chi Basophils/100 WBC (Bld) 0.2 % Normal 0.2-2.0 [facility] Comment on above: Performed By: #### C BC ####[facility] Muwhkgqpve320[address] [place], [place] [address]Dr. Soniya Chi EO # 0.1 103/ul Normal 0.0-0.7 [facility] Comment on above: Performed By: #### C BC ####[facility] Ctojqrfgvv114[address] [place], [place] [address]Dr. Soniya Chi Eosinophils/100 WBC (Bld) 1.1 % Normal 0.9-7.0 [facility] Comment on above: Performed By: #### C BC ####[facility] Fdwglkfqyw7986 [place] [address]Dr. Soniya Chi Erythrocyte distribution width (RBC) [Ratio] 14.1 % Normal 11.0-15.[address] [facility] Comment on above: Performed By: #### C BC ####[facility] Muofzmyzht1732 [place] [address]Dr. Soniya Chi Hematocrit (Bld) [Volume fraction] 31.3 % Critically low 36.0-48.[address] [facility] Comment on above: Performed By: #### C BC ####[facility] Cnqmnpdjjr[address] [place], [place] [address]Dr. Soniya Chi Hemoglobin (Bld) [Mass/Vol] 10.5 g/dL Critically low 12.0-16.[address] [facility] Comment on above: Performed By: #### C BC ####[facility] Elduphkbeh7[address] [place], [place] [address]Dr. Soniya Chi IG # 0.02 10e3/ul Normal 0.00-0.[address] [facility] Comment on above: Performed By: #### C BC ####[facility] Crspepcegu45[address] [place], [place] [address]Dr. Soniya Chi IG % 0.3 % Normal 0.0-0.[address] [facility] Comment on above: Performed By: #### C BC ####[facility] Pgovccjvsk806[address] [place], [place] [address]Dr. Soniya Chi LYMPH # 0.8 103/ul Critically low 1.2-3.8 [facility] Comment on above: Performed By: #### C BC ####[facility] Ejhqbbofrs[address] [place], [place] [address]Dr. Soniya Chi Lymphocytes/100 WBC (Bld) 13.4 % Critically low 20.5-60.0 [facility] Comment on above: Performed By: #### C BC ####[facility] Jphtptuuqz070[address] [place], [place] [address]Dr. Soniya Chi MANUAL DIFF REQ NO Normal [facility] Comment on above: Performed By: #### C BC ####[facility] Psazypzyga7009 [place] [id number]. Soniya Alon MCH (RBC) [Entitic mass] 30.1 pg Normal 26.7-34.0 [facility] Comment on above: Performed By: #### C BC ####[facility] Cegjvjzjxe1914 [place] [address]Dr. Soniya Chi MCHC (RBC) [Mass/Vol] 33.5 g/dL Normal 29.9-35.2 [facility] Comment on above: Performed By: #### C BC ####[facility] Cwltwbspzq8376 [place] [address]Dr. Soniya Alon MCV (RBC) [Entitic vol] 89.7 fL Normal 81.0-99.0 [facility] Comment on above: Performed By: #### C BC ####[facility] Qvmgrnryni[address] [place], [place] [address]Dr. Soniya Chi MONO # 0.6 103/ul Normal 0.3-0.8 [facility] Comment on above: Performed By: #### C BC ####[facility] Hkxnuoxirk8687 [place] [address]Dr. Gypsyjuan Chi Monocytes/100 WBC (Bld) 9.8 % Normal 1.7-12.0 [facility] Comment on above: Performed By: #### C BC ####[facility] Omzydlqyka[address] [place], [place] [address]Dr. Gypsyjuan Chi NEUT # 4.6 103/ul Normal 1.4-6.5 [facility] Comment on above: Performed By: #### C BC ####[facility] Mgcouzarpl[address] [place], [place] [address]Dr. Soniya Chi Neutrophils/100 WBC (Bld) 75.2 % Critically high 43.0-75.0 [facility] Comment on above: Performed By: #### C BC ####[facility] Pzolhauyig6[address] [place], [place] [address]Dr. Soniya Chi Platelet mean volume (Bld) [Entitic vol] 10.6 fL Normal 9.5-13.5 [facility] Comment on above: Performed By: #### C BC ####[facility] Zijgrylpsk8793 [place] [address]Dr. Soniya Chi PLT 128 103/ul Critically low 150-450 [facility] Comment on above: Performed By: #### C BC ####[facility] Aixlslvvva5799 [place] [address]Dr. Soniya Chi RBC 3.49 106/ul Critically low 4.20-5.40 [facility] Comment on above: Performed By: #### C BC ####[facility] Ruwacnubvk6631 [place] [address]Dr. Soniya Chi WBC 6.1 103/ul Normal 4.0-11.0 [facility] Comment on above: Performed By: #### C BC ####[facility] Awecmgksig1873 [place] [address]Dr. Soniya Chi FREE T4on 05-28-2022 Free T4 [Mass/Vol] 0.93 ng/dL Normal 0.76-1.46 [facility] Comment on above: Performed By: #### B 12FOL, FT4, FETIBC ####[facility] Vgmljldomb5020 [place] [address]Dr. Soniya Chi IRON AND TIBCon 05-28-2022 % SATURATION 32.6 % Normal [facility] Comment on above: Performed By: #### B 12FOL, FT4, FETIBC ####[facility] Gmernkzytn5417 [place] [address]Dr. Soniya Chi Iron [Mass/Vol] 94.0 ug/dL Normal 50.0-170.0 [facility] Comment on above: Performed By: #### B 12FOL, FT4, FETIBC ####[facility] Uzsmbmxquw1778 [place] [address]Dr. Soniya Chi TIBC DIRECT 288.0 ug/dL Normal 250.0-450.0 [facility] Comment on above: Performed By: #### B 12FOL, FT4, FETIBC ####[facility] Pzfwdpqvqc1732 [place] [address]Dr. Soniya Chi POINT OF CARE GLUCOSEon 12-2 Glucose [Mass/Vol] 123 mg/dL Critically high 74-106 [facility] Comment on above: Performed By: #### P OCGLUC ####[facility] Tcskkqyhid6697 [place] [address]Dr. Soniya Chi PROF CHEM 8 (BAS METB)on Anion gap [Moles/Vol] 11.2 mmol/L Normal [facility] Comment on above: Performed By: #### B MP ####[facility] Bjsxqvtlyr1833 [place] [address]Dr. Soniya Chi Calcium [Mass/Vol] 9.0 mg/dL Normal 8.5-10.1 [facility] Comment on above: Performed By: #### B MP ####[facility] Fpqehydqar52[address] [place], [place] [address]Dr. Soniya Chi Chloride [Moles/Vol] 108 mmol/L Critically high 98-[address] [facility] Comment on above: Performed By: #### B MP ####[facility] Mopxthrvbh52[address] [place], [place] [address]Dr. Soniya Chi CO2 [Moles/Vol] 26.4 mmol/L Normal 21.0-32.0 [facility] Comment on above: Performed By: #### B MP ####[facility] Hhksqbsojc[address] [place], [place] [address]Dr. Soniya Chi Creatinine [Mass/Vol] 1.30 mg/dL Critically high 0.55-1.[address] [facility] Comment on above: Performed By: #### B MP ####[facility] Hafnyuyaxg7753 [place] [address]Dr. Soniya Chi EGFR-AF BELIZEAN 50 mL/min/1.73m2 Critically low >=60 [facility] Comment on above: Performed By: #### B MP ####[facility] Fpdjknkvxp85[address] [place], [place] [address]Dr. Soniya Chi EGFR-NON AF BELIZEAN 41 mL/min/1.73m2 Critically low >=[address] [facility] Comment on above: Performed By: #### B MP ####[facility] Savslqqpex6699 [place] [address]Dr. Soniya Alon Glucose [Mass/Vol] 115 mg/dL Critically high 74-106 T [facility] Comment on above: Performed By: #### B MP ####[facility] Dgavnrwkne4395 [place] [address]Dr. Soniya Chi Potassium [Moles/Vol] 3.6 mmol/L Normal 3.5-5.[address] [facility] Comment on above: Performed By: #### B MP ####[facility] Nqkqwxtexa1494 [place] [address]Dr. Soniya Chi Sodium [Moles/Vol] 142 mmol/L Normal 136-145 [facility] Comment on above: Performed By: #### B MP ####[facility] Ovejhehoos5327 [place] [address]Dr. Soniya Chi Urea nitrogen [Mass/Vol] 20.0 mg/dL Critically high 7.0-18.[address] [facility] Comment on above: Performed By: #### B MP ####[facility] Gjpeqadpck[address] [place], [place] [address]Dr. Soniya Chi Urea nitrogen/Creatinin e [Mass ratio] 15.4 mg/mg Normal [facility] Comment on above: Performed By: #### B MP ####[facility] Shkgnxmaso4357 [place] [address]Dr. Soniya Chi Anion gap [Moles/Vol] 12.7 mmol/L Normal [facility] Comment on above: Performed By: #### B MP ####[facility] Cuqicwpfff0808 [place] [address]Dr. Soniya Chi Calcium [Mass/Vol] 9.1 mg/dL Normal 8.5-10.1 [facility] Comment on above: Performed By: #### B MP ####[facility] Ytnkimqwjx6054 [place] [address]Dr. Soniya Chi Chloride [Moles/Vol] 107 mmol/L Normal 98-[address] [facility] Comment on above: Performed By: #### B MP ####[facility] Wmitfypgyn7697 [place] [address]Dr. Soniya Chi CO2 [Moles/Vol] 27.7 mmol/L Normal 21.0-32.0 [facility] Comment on above: Performed By: #### B MP ####[facility] Yedzcselgi6946 [place] [address]Dr. Soniya Chi Creatinine [Mass/Vol] 1.25 mg/dL Critically high 0.55-1.[address] [facility] Comment on above: Performed By: #### B MP ####[facility] Ozwnxepzxl7568 [place] [address]Dr. Soniya Alon EGFR-AF BELIZEAN 52 mL/min/1.73m2 Critically low >=60 [facility] Comment on above: Performed By: #### B MP ####[facility] Ecxgzheeuv2835 [place] [address]Dr. Gypsyjuan Alon EGFR-NON AF BELIZEAN 43 mL/min/1.73m2 Critically low >=60 [facility] Comment on above: Performed By: #### B MP ####[facility] Xwovuextkl2426 [place] [address]Dr. Soniya Aoln Glucose [Mass/Vol] 77 mg/dL Normal 74-106 [facility] Comment on above: Performed By: #### B MP ####[facility] Ifjvjylmft2313 [place] [address]Dr. Soniya Chi Potassium [Moles/Vol] 3.4 mmol/L Critically low 3.5-5.1 [facility] Comment on above: Performed By: #### B MP ####[facility] Qribizvgvt5134 [place] [address]Dr. Soniya Chi Sodium [Moles/Vol] 144 mmol/L Normal 136-145 [facility] Comment on above: Performed By: #### B MP ####[facility] Hgfehmnoom4714 [place] [address]Dr. Soniya Chi Urea nitrogen [Mass/Vol] 21.0 mg/dL Critically high 7.0-18.[address] [facility] Comment on above: Performed By: #### B MP ####[facility] Nyekszkern0974 [place] [address]Dr. Soniya Chi Urea nitrogen/Creatinin e [Mass ratio] 16.8 mg/mg Normal [facility] Comment on above: Performed By: #### B MP ####[facility] Sz[address]kahxiyg[address] [place], [place] [address]Dr. Soniya Chi VIT B12 AND FOLATEon 022 Cobalamin (Vitamin B12) [Mass/Vol] 500.0 pg/mL Normal 193.0-986.0 [facility] Comment on above: Performed By: #### B 12FOL, FT4, FETIBC ####[facility] Yowkhfalbr[address] [place], [place] [address]Dr. Soniya Chi FOLATE 10.30 ng/mL Normal 8.60-58.90 [facility] Comment on above: Performed By: #### B 12FOL, FT4, FETIBC ####[facility] Wuekhinibt[address] [place], [place] [address]Dr. Soniya Chi AMMONIAon 05-27-2022 Ammonia (P) [Moles/Vol] 15 umol/L Normal 11-32 [facility] Comment on above: Performed By: #### A MM ####[facility] Hqrxkxqunf[address] [place], [place] [address]Dr. Soniya Chi CBC AUTO DIFFon 05-27-2022 BASO # 0.0 103/ul Normal 0.0-0.1 [facility] Comment on above: Performed By: #### C BC ####[facility] Strmrjrieh[address] [place], [place] [address]Dr. Soniya Alon Basophils/100 WBC (Bld) 0.4 % Normal 0.2-2.0 [facility] Comment on above: Performed By: #### C BC ####[facility] Kcvcoignes[address] [place], [place] [address]Dr. Soniya Alon EO # 0.1 103/ul Normal 0.0-0.7 [facility] Comment on above: Performed By: #### C BC ####[facility] Iqhcnwrosz5291 [place] [address]Dr. Soniya Chi Eosinophils/100 WBC (Bld) 1.5 % Normal 0.9-7.[address] [facility] Comment on above: Performed By: #### C BC ####[facility] Uhdeuaqega3220 [place] [address]Dr. Soniya Chi Erythrocyte distribution width (RBC) [Ratio] 14.2 % Normal 11.0-15.[address] [facility] Comment on above: Performed By: #### C BC ####[facility] Tygcbglsiw8603 [place] [address]Dr. Soniya Chi Hematocrit (Bld) [Volume fraction] 36.0 % Normal 36.0-48.[address] [facility] Comment on above: Performed By: #### C BC ####[facility] Thkamnkobx23[address] [place], [place] [address]Dr. Soniya Chi Hemoglobin (Bld) [Mass/Vol] 11.9 g/dL Critically low 12.0-16.[address] [facility] Comment on above: Performed By: #### C BC ####[facility] Mhclafordn[address] [place], [place] [address]Dr. Soniya Chi IG # 0.02 10e3/ul Normal 0.00-0.03 [facility] Comment on above: Performed By: #### C BC ####[facility] Ttskmilfyq67[address] [place], [place] [address]Dr. Soniya Chi IG % 0.4 % Normal 0.0-0.5 [facility] Comment on above: Performed By: #### C BC ####[facility] Mitbviyvhg[address] [place], [place] [address]Dr. Soniya Chi LYMPH # 1.0 103/ul Critically low 1.2-3.8 [facility] Comment on above: Performed By: #### C BC ####[facility] Uuvweuifqe65[address] [place], [place] [address]Dr. Soniya Chi Lymphocytes/100 WBC (Bld) 18.1 % Critically low 20.5-60.[address] [facility] Comment on above: Performed By: #### C BC ####[facility] Qwzagsadep4179 [place] [address]Dr. Soniya Chi MANUAL DIFF REQ NO Normal [facility] Comment on above: Performed By: #### C BC ####[facility] Uiwtnebjil6533 [place] [address]Dr. Soniya Alon MCH (RBC) [Entitic mass] 29.9 pg Normal 26.7-34.0 [facility] Comment on above: Performed By: #### C BC ####[facility] Oqkrygsqrg7108 [place] [address]Dr. Soniya Alon MCHC (RBC) [Mass/Vol] 33.1 g/dL Normal 29.9-35.2 [facility] Comment on above: Performed By: #### C BC ####[facility] [address]ufbrgsnv[address] [place], [place] [address]Dr. Soniya Chi MCV (RBC) [Entitic vol] 90.5 fL Normal 81.0-99.[address] [facility] Comment on above: Performed By: #### C BC ####[facility] Ihbqobxpsj[address] [place], [place] [address]Dr. Soniya Alon MONO # 0.3 103/ul Normal 0.3-0.[address] [facility] Comment on above: Performed By: #### C BC ####[facility] Aiqlmpeofv45[address] [place] [address]Dr. Soniya Chi Monocytes/100 WBC (Bld) 5.4 % Normal 1.7-12.0 [facility] Comment on above: Performed By: #### C BC ####[facility] Bvsbcvprra[address] [place], [place] [address]Dr. Gypsyjuan Chi NEUT # 4.0 103/ul Normal 1.4-6.5 [facility] Comment on above: Performed By: #### C BC ####[facility] Oiwmgcjxfy0[address] [place], [place] [address]Dr. Soniya Chi Neutrophils/100 WBC (Bld) 74.2 % Normal 43.0-75.0 [facility] Comment on above: Performed By: #### C BC ####[facility] Ggjydjlbvf66[address] [place] [address]Dr. Soniya Chi Platelet mean volume (Bld) [Entitic vol] 10.0 fL Normal 9.5-13.[address] [facility] Comment on above: Performed By: #### C BC ####[facility] Kzxfrlvzgk6993 [place], [place] [address]Kf. Soniya Chi PLT 140 103/ul Critically low 150-450 [facility] Comment on above: Performed By: #### C BC ####[facility] Tnbotppaag4892 [place], [place] [address]Eo. Soniya Chi RBC 3.98 106/ul Critically low 4.20-5.40 [facility] Comment on above: Performed By: #### C BC ####[facility] Qvwtujkmih3183 [place] [address]Dr. Soniya Chi WBC 5.4 103/ul Normal 4.0-11.[address] [facility] Comment on above: Performed By: #### C BC ####[facility] Xcbmxtxvgc5073 [place] [address]Dr. Soniya Chi CT STROKE HEAD WOon 05-27-20 CT STROKE HEAD WO Normal [facility] CTA HEAD WO W CONon 05-27-20 CTA HEAD WO W CON Normal [facility] CULTURE BLOODon 05-27-2022 Microscopic examination of blood, culture Culture Observations: NO GROWTH AT 5 DAYS. Normal [facility] Comment on above: Performed By: #### B LDCX2 ####[facility] Zfsizimpkw8144 [place] [address]Dr. Soniya Chi Microscopic examination of blood, culture Culture Observations: NO GROWTH AT 5 DAYS. Normal [facility] Comment on above: Performed By: #### B LDCX1 ####[facility] Wlmtfkvihs3458 [place] [address]Dr. Soniya Alon Covid-19 PCR (CVDTB)on 05-03 SARS-CoV-2 (COVID-19) RNA DORIAN+probe Ql (Unsp spec) Not detected Normal NOT DETECTED [facility] Comment on above: Result Comment: [...] for this test is supported by the [employer] of Health and Human Service's declaration that [...] longer be used). Performed By: #### C VDNEW [facility] ####[facility] Ctubazezzh[address] [place], [place] [address]Dr. Soniya Chi ER URINE PROFILEon 2 Bilirubin Ql (U) Negative Normal NEGATIVE [facility] Comment on above: Performed By: #### DENIZ WEDLONRO ####[facility] Ectqykxqfv[address] [place], [place] [address]Dr. Soniya Chi Clarity (U) CLEAR Normal CLEAR [facility] Comment on above: Performed By: #### Benoit CARTER UMICRO ####[facility] Raftwknrdw[address] [place], [place] [address]Dr. Soniya Chi Color (U) LT. YELLOW Normal YELLOW [facility] Comment on above: Performed By: #### Benoit CARTER UMICRO ####[facility] Hynqjkayzu[address] [place], [place] [address]Dr. Soniya Chi ERUAHD A micrscopic examination will be performed if indicated. Normal [facility] Comment on above: Performed By: #### Benoit CARTER UMICRO ####[facility] Nxmcfzkdtr[address] [place], [place] [address]Dr. Soniya Chi Glucose Ql (U) Negative Normal NEGATIVE [facility] Comment on above: Performed By: #### DENIZ WELDONRO ####[facility] Noxhfpnqef9114 [place] [address]Dr. Soniya Chi Hemoglobin Ql (U) Negative Normal NEGATIVE [facility] Comment on above: Performed By: #### DENIZ WELDONRO ####[facility] Cakilfvpzx9672 [place] [address]Dr. Soniya Chi Ketones Ql (U) Negative Normal NEGATIVE [facility] Comment on above: Performed By: #### LUIS WELDONICRO ####[facility] Bsgcraetae[address] [place], [place] [address]Dr. Soniya Chi LEUKOCYTES SMALL Abnormal NEGATIVE [facility] Comment on above: Performed By: #### DENIZ WELDONRO ####[facility] Irwqhnxqkr[address] [place], [place] [address]Dr. Soniya Chi Nitrite Ql (U) Negative Normal NEGATIVE [facility] Comment on above: Performed By: #### DENIZ WELDONRO ####[facility] Ykoslcoppc[address] [place], [place] [address]Dr. Soniya Chi pH (U) 6.0 [pH] Normal 5-9 [facility] Comment on above: Performed By: #### DENIZ WELDONRO ####[facility] Vlljcmzkuh[address] [place], [place] [address]Dr. Soniya Chi SPEC GRAVITY 1.020 Normal 1.005-<=1.025 [facility] Comment on above: Performed By: #### DENIZ WELDONRO ####[facility] Onlbflveto[address] [place], [place] [address]Dr. Soniya Chi UA PROTEIN Negative Normal NEGATIVE/ TRACE [facility] Comment on above: Performed By: #### DENIZ WELDONRO ####[facility] Lvuabwhorg[address] [place], [place] [address]Dr. Soniya Chi UR MICRO IND INDICATED Normal [facility] Comment on above: Performed By: #### DENIZ WELDONRO ####[facility] Sohnqzpoka[address] [place], [place] [address]Dr. Soniya Chi Urobilinogen Qn (U) 0.2 {Casimiro'U}/dL Normal 0.2 - 1.0 [facility] Comment on above: Performed By: #### E MARCOS CARTER ####[facility] Islaaalzyc[address] [place], [place] [address]Dr. Soniya Chi FREE T3on 05-27-2022 FREE T3 2.63 pg/mlL Normal 2.18-3.98 [facility] Comment on above: Performed By: #### F T3, TSH ####[facility] Eysiuddkou[address] [place], [place] [address]Dr. Soniya Chi INFLUENZA A AND B AGon 05-27 INFLUANEGH SEE BELOW Normal [facility] Comment on above: Result Comment: Nega tive for Flu A protein angiten. Infection due to Flu A cannot be ruled out. Flu A angiten in the sample may be below the detection limit of the test. Performed By: #### I NFLUAB ####[facility] Tfphrlygaf[address] [place], [place] [address]Dr. Soniya Chi INFLUBNEGH SEE BELOW Normal [facility] Comment on above: Result Comment: Nega tive for Flu B protein antigen. Infection due to Flu B cannot be ruled out. Flu B antigen in the sample may be below the detection limit of the test. Performed By: #### I NFLUAB ####[facility] Ssyqkdkvuh[address] [place], [place] [address]Dr. Soniya Chi INFLUENZA A AG Negative Normal NEGATIVE SEE COMMENT [facility] Comment on above: Performed By: #### I NFLUAB ####[facility] Deaovssosv84[address] [place], [place] [address]Dr. Soniya Chi INFLUENZA B AG Negative Normal NEGATIVE SEE COMMENT [facility] Comment on above: Performed By: #### I NFLUAB ####[facility] Ywoqpnyfqb[address] [place], [place] [address]Dr. Soniya Chi INTERNAL CONTROLS Within Normal Limits Normal Within Normal Limits [facility] Comment on above: Performed By: #### I NFLUAB ####[facility] Mzvutsapzy5950 [place] [address]Dr. Soniya Chi LACTATE/LACTIC ACIDon 2021 Lactate [Moles/Vol] 1.2 mmol/L Normal 0.4-1.[address] [facility] Comment on above: Performed By: #### L ACT ####[facility] Lzlqsrzwfz[address] [place], [place] [address]Dr. Soniya Chi POINT OF CARE GLUCOSEon 05-03 Glucose [Mass/Vol] 89 mg/dL Normal 74-106 [facility] Comment on above: Performed By: #### P OCGLUC ####[facility] Mwlfxcsxhz12[address] [place], [place] [address]Dr. Soniya Chi Glucose [Mass/Vol] 89 mg/dL Normal 74-106 [facility] Comment on above: Performed By: #### P OCGLUC ####[facility] Jwxiqnrkga[address] [place], [place] [address]Dr. Soniya Chi PROF 14(COMP METB)on 022 Albumin [Mass/Vol] 3.7 g/dL Normal 3.4-5.0 [facility] Comment on above: Performed By: #### C MP ####[facility] Weigqfygxs[address] [place], [place] [address]Dr. Soniya Chi Albumin/Globulin [Mass ratio] 0.9 {ratio} Normal [facility] Comment on above: Performed By: #### C MP ####[facility] Leswelswid[address] [place], [place] [address]Dr. Soniya Chi ALP [Catalytic activity/Vol] 92 U/L Normal 46-116 [facility] Comment on above: Performed By: #### C MP ####[facility] Nopmeryivm[address] [place], [place] [address]Dr. Soniya Chi ALT [Catalytic activity/Vol] 34 U/L Normal 14-59 [facility] Comment on above: Performed By: #### C MP ####[facility] Lwfphetfap39[address] [place], [place] [address]Dr. Soniya Chi Anion gap [Moles/Vol] 11.0 mmol/L Normal [facility] Comment on above: Performed By: #### C MP ####[facility] Rvnldsxmwe1771 [place] [address]Dr. Snoiya Chi AST [Catalytic activity/Vol] 19 U/L Normal 15-[address] [facility] Comment on above: Performed By: #### C MP ####[facility] Xtmhigevlf0592 [place] [address]Dr. Soniya Chi Bilirubin [Mass/Vol] 1.0 mg/dL Normal 0.2-1.[address] [facility] Comment on above: Performed By: #### C MP ####[facility] Gbjgdfgvba7689 [place] [address]Dr. Soniya Chi Calcium [Mass/Vol] 10.2 mg/dL Critically high 8.5-10.1 [facility] Comment on above: Performed By: #### C MP ####[facility] Jkqgfjsizo[address] [place], [place] [address]Dr. Soniya Chi Chloride [Moles/Vol] 103 mmol/L Normal 98-[address] [facility] Comment on above: Performed By: #### C MP ####[facility] Wisrykyzmo8[address] [place], [place] [address]Dr. Soniya Chi CO2 [Moles/Vol] 31.6 mmol/L Normal 21.0-32.0 [facility] Comment on above: Performed By: #### C MP ####[facility] [address]jnsqqs[address] [place], [place] [address]Dr. Soniya Chi Creatinine [Mass/Vol] 1.15 mg/dL Critically high 0.55-1.[address] [facility] Comment on above: Performed By: #### C MP ####[facility] Gryyeqkybr90[address] [place] [address]Dr. Soniya Alon EGFR-AF BELIZEAN 57 mL/min/1.73m2 Critically low >=60 [facility] Comment on above: Performed By: #### C MP ####[facility] Lybuolrvsv1320 [place] [address]Dr. Soniya Alon EGFR-NON AF BELIZEAN 47 mL/min/1.73m2 Critically low >=[address] [facility] Comment on above: Performed By: #### C MP ####[facility] Dczaidoymp8663 [place] [address]Dr. Soniya Chi Globulin (S) [Mass/Vol] 4.0 g/dL Normal [facility] Comment on above: Performed By: #### C MP ####[facility] Csbbntqzbw0853 [place] [address]Dr. Soniya Chi Glucose [Mass/Vol] 82 mg/dL Normal 74-106 [facility] Comment on above: Performed By: #### C MP ####[facility] Jhqogfiewi9156 [place] [address]Dr. Soniya Alon Potassium [Moles/Vol] 3.6 mmol/L Normal 3.5-5.1 [facility] Comment on above: Performed By: #### C MP ####[facility] Tznaxomdhy[address] [place], [place] [address]Dr. Soniya Alon Protein [Mass/Vol] 7.7 g/dL Normal 6.4-8.2 [facility] Comment on above: Performed By: #### C MP ####[facility] Pvyswdyogz[address] [place], [place] [address]Dr. Soniya Alon Sodium [Moles/Vol] 142 mmol/L Normal 136-145 [facility] Comment on above: Performed By: #### C MP ####[facility] Fybfbxybej[address] [place], [place] [address]Dr. Soniya Alon Urea nitrogen [Mass/Vol] 31.0 mg/dL Critically high 7.0-18.0 [facility] Comment on above: Performed By: #### C MP ####[facility] Nbmporxbrb[address] [place], [place] [address]Dr. Soniya Alon Urea nitrogen/Creatinin e [Mass ratio] 27.0 mg/mg Normal [facility] Comment on above: Performed By: #### C MP ####[facility] Lgghrhcisr2096 [place] [address]Dr. Soniya Chi TSHon 05-27-2022 TSH 8.165 uIU/mL Critically high 0.358-3.740 [facility] Comment on above: Performed By: #### F T3, TSH ####[facility] Vhvvxpuobz3537 [place] [address]Dr. Soniya Chi URINE MICROSCOPIC ONLYon BACTERIA TRACE Abnormal NONE SEEN [facility] Comment on above: Performed By: #### E RUR, UMICRO ####[facility] Clrbjhaagu4656 [place] [address]Dr. Soniya Chi Bacteria identified Cx Nom (U) INDICATED Normal [facility] Comment on above: Performed By: #### E RUCharles, UMICRO ####[facility] Avmzaaxisy6434 [place] [address]Dr. Soniya Chi CAST NONE SEEN Normal NONE SEEN [facility] Comment on above: Performed By: #### E RUR, UMICRO ####[facility] Hxaskfkiuk[address] [place], [place] [address]Dr. Soniya Chi Crystals LM Nom (Urine sed) NONE SEEN Normal NONE SEEN [facility] Comment on above: Performed By: #### E RUCharles UMICRO ####[facility] Vsjjsiufgl[address] [place], [place] [address]Dr. Soniya Chi Epithelial cells LM Ql (Urine sed) FEW Abnormal NONE SEEN /RARE [facility] Comment on above: Performed By: #### E RUCharles, UMICRO ####[facility] Squlzqpttt[address] [place], [place] [address]Dr. Soniya Chi MUCOUS NONE SEEN Normal NONE SEEN [facility] Comment on above: Performed By: #### E RUCharles, UMICRO ####[facility] Aewprbgabi4287 [place] [address]Dr. Soniya Chi RBC NONE SEEN Abnormal 0-2 [facility] Comment on above: Performed By: #### E RUCharles UMICRO ####[facility] Hpyfbxvagc3487 [place] [address]Dr. Soniya Chi WBC 2-5 Abnormal NONE SEEN [facility] Comment on above: Performed By: #### Benoit RUCharles UMICRO ####[facility] Lbllogpclg8458 [place] [address]Dr. Soniya Chi XR CHEST 1 Von 05-27-2022 XR CHEST 1 V Normal [facility] Covid-19 PCR ([facility])on SARS-CoV-2 (COVID-19) RNA DORIAN+probe Ql (Unsp spec) Not detected Normal NOT DETECTED [facility] Comment on above: Result Comment: This test is not yet approved or cleared by the [place] FDA. When there are no FDA-approved or cleared tests available, and other criteria are met, FDA can make tests available under an emergency access mechanism called an Emergency Use Authorization (EUA). The EUA for this test is supported by the [place] of Health and Human Service's (HHS's) declaration [...] with SARS-CoV-2. Performed By: #### C VDTBH ####[facility] Paaszhaerm[address] [place], [place] [address]Dr. Soniya Chi CBC AUTO DIFFon 04-23-2022 BASO # 0.0 103/ul Normal 0.0-0.1 [facility] Comment on above: Performed By: #### C BC ####[facility] Jzzjpacmvx7274 [place] [address]Dr. Gypsyjuan Chi Basophils/100 WBC (Bld) 0.4 % Normal 0.2-2.0 [facility] Comment on above: Performed By: #### C BC ####[facility] Qnhszqploe[address] [place], [place] [address]Dr. Gypsyjuan Chi EO # 0.1 103/ul Normal 0.0-0.7 [facility] Comment on above: Performed By: #### C BC ####[facility] Nxwhuyxjor4524 [place] [address]Dr. Soniya Chi Eosinophils/100 WBC (Bld) 1.9 % Normal 0.9-7.[address] [facility] Comment on above: Performed By: #### C BC ####[facility] Etcwsitvif1941 [place] [address]Dr. Soniya Chi Erythrocyte distribution width (RBC) [Ratio] 13.4 % Normal 11.0-15.0 [facility] Comment on above: Performed By: #### C BC ####[facility] Busjngtzub[address] [place], [place] [address]Dr. Soniya Chi Hematocrit (Bld) [Volume fraction] 37.0 % Normal 36.0-48.[address] [facility] Comment on above: Performed By: #### C BC ####[facility] Fiegmyunub[address] [place], [place] [address]Dr. Soniya Chi Hemoglobin (Bld) [Mass/Vol] 12.1 g/dL Normal 12.0-16.0 [facility] Comment on above: Performed By: #### C BC ####[facility] Pltebrepib[address] [place], [place] [address]Dr. Snoiya Chi IG # 0.01 10e3/ul Normal 0.00-0.03 [facility] Comment on above: Performed By: #### C BC ####[facility] Suelrsqxhe[address] [place], [place] [address]Dr. Soniya Chi IG % 0.2 % Normal 0.0-0.5 [facility] Comment on above: Performed By: #### C BC ####[facility] Bkysuuxfyx[address] [place], [place] [address]Dr. Soniya Chi LYMPH # 1.8 103/ul Normal 1.2-3.8 [facility] Comment on above: Performed By: #### C BC ####[facility] Echlamvpfz[address] [place], [place] [address]Dr. Soniya Chi Lymphocytes/100 WBC (Bld) 30.9 % Normal 20.5-60.0 [facility] Comment on above: Performed By: #### C BC ####[facility] Kemopnrzcj3124 [place] [address]Dr. Soniya Chi MANUAL DIFF REQ NO Normal [facility] Comment on above: Performed By: #### C BC ####[facility] Zjhozjmqkz3413 [place] [address]Dr. Soniya Chi MCH (RBC) [Entitic mass] 29.7 pg Normal 26.7-34.0 [facility] Comment on above: Performed By: #### C BC ####[facility] Qbgggcylzn[address] [place], [place] [address]Dr. Soniya Chi MCHC (RBC) [Mass/Vol] 32.7 g/dL Normal 29.9-35.[address] [facility] Comment on above: Performed By: #### C BC ####[facility] Oezpdytdqs[address] [place], [place] [address]Dr. Soniya Chi MCV (RBC) [Entitic vol] 90.7 fL Normal 81.0-99.[address] [facility] Comment on above: Performed By: #### C BC ####[facility] Xjqzmqsatc[address] [place], [place] [address]Dr. Soniya Chi MONO # 0.4 103/ul Normal 0.3-0.8 [facility] Comment on above: Performed By: #### C BC ####[facility] Rnwrnfovim[address] [place], [place] [address]Dr. Gypsyjuan Chi Monocytes/100 WBC (Bld) 6.5 % Normal 1.7-12.0 [facility] Comment on above: Performed By: #### C BC ####[facility] Otlfzldhoe[address] [place], [place] [address]Dr. Soniya Chi NEUT # 3.4 103/ul Normal 1.4-6.5 [facility] Comment on above: Performed By: #### C BC ####[facility] Irwbobwftn[address] [place], [place] [address]Dr. Soniya Chi Neutrophils/100 WBC (Bld) 60.1 % Normal 43.0-75.0 [facility] Comment on above: Performed By: #### C BC ####[facility] Zzcfzxtvsg1269 [place] [address]Dr. Soniya Chi Platelet mean volume (Bld) [Entitic vol] 10.0 fL Normal 9.5-13.[address] [facility] Comment on above: Performed By: #### C BC ####[facility] Myyvuliymx4320 [place] [address]Dr. Soniya Chi PLT 193 103/ul Normal 150-450 [facility] Comment on above: Performed By: #### C BC ####[facility] Ahirtmqhhx4071 [place] [address]Dr. Soniya Chi RBC 4.08 106/ul Critically low 4.20-5.40 [facility] Comment on above: Performed By: #### C BC ####[facility] Jrtdvydxuy4824 [place] [address]Dr. Soniya Chi WBC 5.7 103/ul Normal 4.0-11.0 [facility] Comment on above: Performed By: #### C BC ####[facility] Rxkypriyxb75[address] [place] [address]Dr. Soniya Chi FREE T3on 04-23-2022 FREE T3 2.90 pg/mlL Normal 2.18-3.[address] [facility] Comment on above: Performed By: #### F T3, LIPID, CMP, TSH ####[facility] Hsdhxxniqm4022 [place] [address]Dr. Soniay Chi FREE T4on 04-23-2022 Free T4 [Mass/Vol] 0.91 ng/dL Normal 0.76-1.46 [facility] Comment on above: Performed By: #### F T4 ####[facility] Horgdoxwzj08[address] [place] [address]Dr. Soniya Chi LIPID PROFILEon 04-23-2022 CHOL-HDL RATIO NORM SEE BELOW Normal [facility] Comment on above: Result Comment: 3.3 - 4.4 LOW RISK 4.4 - 7.1 AVERAGE RISK 7.1 - 11.0 MODERATE RISK >11.0 HIGH RISK Performed By: #### F T3, LIPID, CMP, TSH ####[facility] Zrtvgrprbx6354 [place] [address]Dr. Soniya Chi Cholesterol [Mass/Vol] 211 mg/dL Critically high <=200 [facility] Comment on above: Performed By: #### F T3, LIPID, CMP, TSH ####[facility] Azuqdyvxww2161 [place], [place] [address]Bk. Soniya Chi Cholesterol in HDL [Mass/Vol] 109 mg/dL Critically high 40-60 [facility] Comment on above: Performed By: #### F T3, LIPID, CMP, TSH ####[facility] Eqnwdfpkts7349 [place] [address]Dr. Soniya Chi Cholesterol in LDL [Mass/Vol] 70.2 mg/dL Normal [facility] Comment on above: Performed By: #### F T3, LIPID, CMP, TSH ####[facility] Qgmfmclajb5432 [place] [address]Dr. Soniya Chi Cholesterol.total/ Cholesterol in HDL [Mass ratio] 1.9 {ratio} Normal [facility] Comment on above: Performed By: #### F T3, LIPID, CMP, TSH ####[facility] Tgjtnxcoef27[address] [place] [address]Dr. Soniya Chi HDL NORMAL > or = 60 mg/dl - LOW CARDIOVASCULAR RISK <40 mg/dl - HIGH CARDIOVASCULAR RISK Normal [facility] Comment on above: Performed By: #### F T3, LIPID, CMP, TSH ####[facility] Fvekdomcnm3651 [place] [address]Dr. Soniya Chi LDL CALC NORMAL SEE BELOW Normal [facility] Comment on above: Result Comment: <100 mg/dl OPTIMAL 100 - 129 mg/dl NEAR OR ABOVE OPTIMAL 130 - 159 mg/dl BORDERLINE HIGH 160 - 189 mg/dl HIGH >190 mg/dl VERY HIGH Performed By: #### F T3, LIPID, CMP, TSH ####[facility] Vaajgrwdhf7287 [place] [address]Dr. Soniya Chi Triglyceride [Mass/Vol] 159 mg/dL Critically high <=150 [facility] Comment on above: Performed By: #### F T3, LIPID, CMP, TSH ####[facility] Sfickdluhd9120 [place] [address]Dr. Soniya Chi VLDL CALC 31.8 mg/dL Normal [facility] Comment on above: Performed By: #### F T3, LIPID, CMP, TSH ####[facility] Vxznewbmtb0741 [place] [address]Dr. Soniya Chi PROF 14(COMP METB)on 022 Albumin [Mass/Vol] 3.9 g/dL Normal 3.4-5.0 [facility] Comment on above: Performed By: #### F T3, LIPID, CMP, TSH ####[facility] Ombbvrvnci7[address] [place] [address]Dr. Soniya Chi Albumin/Globulin [Mass ratio] 1.0 {ratio} Normal [facility] Comment on above: Performed By: #### F T3, LIPID, CMP, TSH ####[facility] Ksrzlyfzxd1397 [place] [address]Dr. Soniya Chi ALP [Catalytic activity/Vol] 76 U/L Normal 46-[address] [facility] Comment on above: Performed By: #### F T3, LIPID, CMP, TSH ####[facility] Gmeheilzwv6372 [place] [address]Dr. Soniya Chi ALT [Catalytic activity/Vol] 35 U/L Normal 14-[address] [facility] Comment on above: Performed By: #### F T3, LIPID, CMP, TSH ####[facility] Rirkumjpwt4419 [place] [address]Dr. Soniya Chi Anion gap [Moles/Vol] 11.8 mmol/L Normal [facility] [facility] Comment on above: Performed By: #### F T3, LIPID, CMP, TSH ####[facility] Tkjpkryydu03[address] [place] [address]Dr. Soniya Chi AST [Catalytic activity/Vol] 14 U/L Critically low 15-[address] [facility] Comment on above: Performed By: #### F T3, LIPID, CMP, TSH ####[facility] Lcharcvaai8520 [place] [address]Dr. Soniya Chi Bilirubin [Mass/Vol] 0.6 mg/dL Normal 0.2-1.0 [facility] Comment on above: Performed By: #### F T3, LIPID, CMP, TSH ####[facility] Jnqrtzlbiq1712 [place] [address]Dr. Soniya Chi Calcium [Mass/Vol] 10.1 mg/dL Normal 8.5-10.1 [facility] Comment on above: Performed By: #### F T3, LIPID, CMP, TSH ####[facility] Jjyoidkcqc6799 [place] [address]Dr. Soniya Chi Chloride [Moles/Vol] 103 mmol/L Normal 98-107 [facility] Comment on above: Performed By: #### F T3, LIPID, CMP, TSH ####[facility] Dmnbywcokx8735 [place] [address]Dr. Soniya Chi CO2 [Moles/Vol] 29.8 mmol/L Normal 21.0-32.0 [facility] Comment on above: Performed By: #### F T3, LIPID, CMP, TSH ####[facility] Jojqsorcon[address] [place], [place] [address]Dr. Soniya Chi Creatinine [Mass/Vol] 1.17 mg/dL Critically high 0.55-1.[address] [facility] Comment on above: Performed By: #### F T3, LIPID, CMP, TSH ####[facility] Xrrpmotgor9296 [place] [address]Dr. Soniya Chi EGFR-AF BELIZEAN 56 mL/min/1.73m2 Critically low >=60 [facility] Comment on above: Performed By: #### F T3, LIPID, CMP, TSH ####[facility] Sondsmgneb[address] [place], [place] [address]Dr. Soniya Chi EGFR-NON AF BELIZEAN 46 mL/min/1.73m2 Critically low >=60 [facility] Comment on above: Performed By: #### F T3, LIPID, CMP, TSH ####[facility] Fzcolpcnhj7749 [place] [address]Dr. Soniya Chi Globulin (S) [Mass/Vol] 3.9 g/dL Normal [facility] Comment on above: Performed By: #### F T3, LIPID, CMP, TSH ####[facility] Ycziaolkjv5934 [place] [address]Dr. Soniya Chi Glucose [Mass/Vol] 94 mg/dL Normal 74-106 [facility] Comment on above: Performed By: #### F T3, LIPID, CMP, TSH ####[facility] Jbdqeczyaw1750 [place] [address]Dr. Soniya Chi Potassium [Moles/Vol] 3.6 mmol/L Normal 3.5-5.1 [facility] Comment on above: Performed By: #### F T3, LIPID, CMP, TSH ####[facility] Ymgbjcymyz5649 [place] [address]Dr. Soniya Chi Protein [Mass/Vol] 7.8 g/dL Normal 6.4-8.2 [facility] Comment on above: Performed By: #### F T3, LIPID, CMP, TSH ####[facility] Javpxukggl[address] [place], [place] [address]Dr. Soniya Chi Sodium [Moles/Vol] 141 mmol/L Normal 136-145 [facility] Comment on above: Performed By: #### F T3, LIPID, CMP, TSH ####[facility] Dsfkqeikat9964 [place] [address]Dr. Soniya Chi Urea nitrogen [Mass/Vol] 27.0 mg/dL Critically high 7.0-18.0 [facility] Comment on above: Performed By: #### F T3, LIPID, CMP, TSH ####[facility] Ftlonivjiv0656 [place] [address]Dr. Soniya Chi Urea nitrogen/Creatinin e [Mass ratio] 23.1 mg/mg Normal [facility] Comment on above: Performed By: #### F T3, LIPID, CMP, TSH ####[facility] Qtofhwrhix2549 [place] [address]Dr. Soniya Chi TSHon 04-23-2022 TSH 3.933 uIU/mL Critically high 0.358-3.740 [facility] Comment on above: Performed By: #### F T3, LIPID, CMP, TSH ####[facility] Mpzuqissgm1704 [place] [address]Dr. 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 Soniya Chi Clarity (U) CLEAR Normal CLEAR [facility] Comment on above: Performed By: #### U ACSIND, UMICRO ####[facility] Quvistrcgq3432 [place] [address]Dr. Soniya Chi Color (U) LT. YELLOW Normal YELLOW [facility] Comment on above: Performed By: #### U ACSIND, UMICRO ####[facility] Iwpenaobhp9519 [place] [address]Dr. Gypsyjuan Chi Glucose Ql (U) Negative Normal NEGATIVE [facility] Comment on above: Performed By: #### U ACSIND, UMICRO ####[facility] Uqhwtyfnlm[address] [place], [place] [address]Dr. Gypsyjuan Chi Hemoglobin Ql (U) Negative Normal NEGATIVE [facility] Comment on above: Performed By: #### U ACSIND, UMICRO ####[facility] Zzpjxhvdst0172 [place] [address]Dr. Soniya Chi Ketones Ql (U) Negative Normal NEGATIVE [facility] Comment on above: Performed By: #### U ACSIND, UMICRO ####[facility] Aajmlofyvb[address] [place], [place] [address]Dr. Soniya Chi LEUKOCYTES TRACE Abnormal NEGATIVE [facility] Comment on above: Performed By: #### U ACSIND, UMICRO ####[facility] Amyoyijzqa[address] [place], [place] [address]Dr. Soniya Chi Nitrite Ql (U) Negative Normal NEGATIVE [facility] Comment on above: Performed By: #### U ACSIND, UMICRO ####[facility] Cuqxdayekj[address] [place], [place] [address]Dr. Soniya Chi pH (U) 5.5 [pH] Normal 5-9 [facility] Comment on above: Performed By: #### MARCOS RAO ####[facility] Rwqxqwfxkk3027 [place] [address]Dr. Soniya Chi SPEC GRAVITY 1.020 Normal 1.005-<=1.025 [facility] Comment on above: Performed By: #### MARCOS RAO ####[facility] Fsboqjphvd8419 [place] [address]Dr. Soniya Chi UA PROTEIN Negative Normal NEGATIVE/ TRACE [facility] Comment on above: Performed By: #### MARCOS RAO ####[facility] Hcypxifuqx4343 [place] [address]Dr. Soniya Chi UR MICRO IND INDICATED Normal [facility] Comment on above: Performed By: #### MARCOS RAO ####[facility] Ulbhbpdjzr[address] [place], [place] [address]Dr. Soniya Chi Urobilinogen Qn (U) 0.2 {Casimiro'U}/dL Normal 0.2 - 1.0 [facility] Comment on above: Performed By: #### MARCOS RAO ####[facility] Stexehctjv6557 [place] [address]Dr. Sonyia Chi URINE MICROSCOPIC ONLYon BACTERIA NONE SEEN Normal NONE SEEN [facility] Comment on above: Performed By: #### MARCOS RAO ####[facility] Glvhtdcrhc7664 [place] [address]Dr. Soniya Chi Bacteria identified Cx Nom (U) NOT INDICATED Normal [facility] Comment on above: Performed By: #### DENIZ RAORO ####[facility] Bcauhqdurn[address] [place], [place] [address]Dr. Soniya Chi CAST NONE SEEN Normal NONE SEEN [facility] Comment on above: Performed By: #### MARCOS RAO ####[facility] Aahsbrgavy[address] [place], [place] [address]Dr. Soniya Chi Crystals LM Nom (Urine sed) NONE SEEN Normal NONE SEEN [facility] Comment on above: Performed By: #### U ACSLUIS UMICRO ####[facility] Jmwikuamzl7749 [place] [address]Dr. Soniya Chi Epithelial cells LM Ql (Urine sed) FEW Abnormal NONE SEEN /RARE [facility] Comment on above: Performed By: #### U ACSLUIS, UMICRO ####[facility] Dduqzxpyki2698 [place] [address]Dr. Soniya Chi MUCOUS TRACE Abnormal NONE SEEN [facility] Comment on above: Performed By: #### U ACSLUIS, UMICRO ####[facility] Lqxbmkqinw0384 [place] [address]Dr. Soniya Chi RBC NONE SEEN Abnormal 0-2 [facility] Comment on above: Performed By: #### U ACSLUIS UMICRO ####[facility] Kzawpiywpl3550 [place] [address]Dr. Soniya Chi WBC 0-2 Abnormal NONE SEEN [facility] Comment on above: Performed By: #### U ACSLUIS, UMICRO ####[facility] Kzlgwwwesx8678 [place] [address]Dr. Soniya Chi MG MAMM SCREEN 3D PANCHITO CADon 04-17-2022 MG MAMM SCREEN 3D PANCHITO CAD Normal [facility] CULTURE URINEon 04-06-2022 CULTURE URINE Normal [facility] Comment on above: Performed By: #### U RCX ####[facility] Iifearnhdd[address] [place], [place] [address]Dr. Soniya Chi ER URINE PROFILEon 2 Bilirubin Ql (U) Negative Normal NEGATIVE [facility] Comment on above: Performed By: #### U MICRO, ERUR ####[facility] Bavqmqmmnh[address] [place], [place] [address]Dr. Soniya Chi Clarity (U) SL CLOUDY Abnormal CLEAR [facility] Comment on above: Performed By: #### U MICRO, ERUR ####[facility] Phspcxjanl213[address] [place], [place] [address]Dr. Soniya Chi Color (U) YELLOW Normal YELLOW [facility] Comment on above: Performed By: #### U MICRO, ERUR ####[facility] Auhzppobpi98[address] [place], [place] [address]Dr. Soniya GAD A micrscopic examination will be performed if indicated. Normal [facility] Comment on above: Performed By: #### U MICRO, ERUR ####[facility] Wdwjopjydz[address] [place], [place] [address]Dr. Soniya Chi Glucose Ql (U) Negative Normal NEGATIVE [facility] Comment on above: Performed By: #### U MICRO, ERUR ####[facility] Btmsboeufp[address] [place], [place] [address]Dr. Soniya Chi Hemoglobin Ql (U) LARGE Abnormal NEGATIVE [facility] Comment on above: Performed By: #### U MICRO, ERUR ####[facility] Kygjazrhrf[address] [place], [place] [address]Dr. Soniya Chi Ketones Ql (U) Negative Normal NEGATIVE [facility] Comment on above: Performed By: #### U MICRO, ERUR ####[facility] Zcnaimjxcy[address] [place], [place] [address]Dr. Soniya Chi LEUKOCYTES LARGE Abnormal NEGATIVE [facility] Comment on above: Performed By: #### U MICRO, ERUR ####[facility] Ygvdczaykf[address] [place], [place] [address]Dr. Soniya Chi Nitrite Ql (U) Negative Normal NEGATIVE [facility] Comment on above: Performed By: #### U MICRO, ERUR ####[facility] Ckysfeakbu[address] [place], [place] [address]Dr. Soniya Chi pH (U) 6.5 [pH] Normal 5-9 [facility] Comment on above: Performed By: #### U MICRO, ERUR ####[facility] Debsljslnv[address] [place], [place] [address]Dr. Soniya Chi Protein (U) [Mass/Vol] 100 mg/dL Abnormal NEGATIVE/ TRACE [facility] Comment on above: Performed By: #### U MICRO, ERUR ####[facility] Dyhyrsocai0003 [place] [address]Dr. Soniya Chi SPEC GRAVITY <=1.005 Abnormal 1.005-<=1.025 [facility] Comment on above: Performed By: #### U MICRO, ERUR ####[facility] Bwtmmhavwo5878 [place] [address]Dr. Soniya Chi UR MICRO IND INDICATED Normal [facility] Comment on above: Performed By: #### U MICRO, ERUR ####[facility] Skwecdathc3633 [place] [address]Dr. Soniya Chi Urobilinogen Qn (U) 0.2 {Casimiro'U}/dL Normal 0.2 - 1.0 [facility] Comment on above: Performed By: #### U MICRO, ERUR ####[facility] Zbqssxcgon[address] [place], [place] [address]Dr. Soniya Chi URINE MICROSCOPIC ONLYon BACTERIA MODERATE Abnormal NONE SEEN [facility] Comment on above: Performed By: #### U MICRO, ERUR ####[facility] Lblyymrrxg39[address] [place], [place] [address]Dr. Soniya Chi Bacteria identified Cx Nom (U) INDICATED Normal [facility] Comment on above: Performed By: #### U MICRO, ERUR ####[facility] Aerlcwynvg[address] [place], [place] [address]Dr. Soniya Alon CAST NONE SEEN Normal NONE SEEN [facility] Comment on above: Performed By: #### U MICRO, ERUR ####[facility] Bzcdobjbkl5827 [place] [address]Dr. Soniya Chi Crystals LM Nom (Urine sed) NONE SEEN Normal NONE SEEN [facility] Comment on above: Performed By: #### U MICRO, ERUR ####[facility] Jluimgsndj[address] [place], [place] [address]Dr. Soniya Chi Epithelial cells LM Ql (Urine sed) FEW Abnormal NONE SEEN /RARE [facility] Comment on above: Performed By: #### U MICRO, ERUR ####[facility] Hbswuotgaw46[address] [place], [place] [address]Dr. Soniya Chi MUCOUS NONE SEEN Normal NONE SEEN [facility] Comment on above: Performed By: #### U MICRO, ERUR ####[facility] Rbzzxmrmwj5857 [place], [place] [address]Vf. Soniya Chi RBC 20-50 Abnormal 0-2 [facility] Comment on above: Performed By: #### U MICRO, ERUR ####[facility] Tricwdsnid0570 [place], [place] [address]Pc. Soniya Chi WBC (U) [#/Vol] /uL Abnormal NONE SEEN [facility] Comment on above: Performed By: #### U MICRO, ERUR ####[facility] Ntcieotxqj1560 [place], [place] [address]Bz. Soniya Chi Covid-19 PCR (CVDTBH)on SARS-CoV-2 (COVID-19) RNA DORIAN+probe Ql (Unsp spec) Not detected Normal NOT DETECTED [facility] Comment on above: Result Comment: This test is not yet approved or cleared by the [place] FDA. When there are no FDA-approved or cleared tests available, and other criteria are met, FDA can make tests available under an emergency access mechanism called an Emergency Use Authorization (EUA). The EUA for this test is supported by the [employer] of Health and Human Service's (HHS's) declaration [...] with SARS-CoV-2. Performed By: #### C VDTBH ####[facility] Ouqoogalob8247 [place], [place] [address]Bl. Soniya Chi Covid-19 PCR (CVDTBH)on 11-30 SARS-CoV-2 (COVID-19) RNA DORIAN+probe Ql (Unsp spec) Detected Critically abnormal NOT DETECTED [facility] Comment on above: Result Comment: This test is not yet approved or cleared by the [place] FDA. When there are no FDA-approved or cleared tests available, and other criteria are met, FDA can make tests available under an emergency access mechanism called an Emergency Use Authorization (EUA). The EUA for this test is supported by the [place] of Health and Human Service's declaration that [...] be used). Performed By: #### C VDTB ####[facility] Veyldaywvo[address] [place], [place] [address]Dr. Soniya Chi CT HEAD WO CONon 12-15-2021 CT HEAD WO CON Normal [facility] CBC AUTO DIFFon 12-12-2021 BASO # 0.0 103/ul Normal 0.0-0.1 [facility] Comment on above: Performed By: #### C BC ####[facility] Kcqhwxhjdo[address] [place], [place] [address]Dr. Soniya Chi Basophils/100 WBC (Bld) 0.5 % Normal 0.2-2.0 [facility] Comment on above: Performed By: #### C BC ####[facility] Ocystjnpof[address] [place], [place] [address]Dr. Soniya Chi EO # 0.1 103/ul Normal 0.0-0.7 [facility] Comment on above: Performed By: #### C BC ####[facility] Jshribastj[address] [place], [place] [address]Dr. Soniya Chi Eosinophils/100 WBC (Bld) 1.6 % Normal 0.9-7.0 [facility] Comment on above: Performed By: #### C BC ####[facility] Mhehkvykss7[address] [place], [place] [address]DrKarolina Chi Erythrocyte distribution width (RBC) [Ratio] 12.2 % Normal 11.0-15.[address] [facility] Comment on above: Performed By: #### C BC ####[facility] Rknzrqapkp9645 [place] [address]Dr. Soniya Chi Hematocrit (Bld) [Volume fraction] 38.7 % Normal 36.0-48.[address] [facility] Comment on above: Performed By: #### C BC ####[facility] Pecoqkpnta3819 [place] [address]Dr. Soniya Chi Hemoglobin (Bld) [Mass/Vol] 12.4 g/dL Normal 12.0-16.0 [facility] Comment on above: Performed By: #### C BC ####[facility] Yuwwmnhqnw67[address] [place], [place] [address]Dr. Soniya Chi IG # 0.02 10e3/ul Normal 0.00-0.03 [facility] Comment on above: Performed By: #### C BC ####[facility] Esgbulvthy[address] [place], [place] [address]Dr. Soniya Chi IG % 0.3 % Normal 0.0-0.[address] [facility] Comment on above: Performed By: #### C BC ####[facility] Neledbpolb[address] [place], [place] [address]Dr. Soniya Chi LYMPH # 1.5 103/ul Normal 1.2-3.8 [facility] Comment on above: Performed By: #### C BC ####[facility] Ogmtatgjnr7[address] [place], [place] [address]Dr. Soniya Chi Lymphocytes/100 WBC (Bld) 20.6 % Normal 20.5-60.0 [facility] Comment on above: Performed By: #### C BC ####[facility] Dzvockgvxi[address] [place], [place] [address]Dr. Soniya Chi MANUAL DIFF REQ NO Normal [facility] Comment on above: Performed By: #### C BC ####[facility] Ccnpxidyyt1096 [place] [address]Dr. Soniya Chi MCH (RBC) [Entitic mass] 29.5 pg Normal 26.7-34.0 [facility] Comment on above: Performed By: #### C BC ####[facility] Zbvdpsqued5211 [place] [address]Dr. Soniya Chi MCHC (RBC) [Mass/Vol] 32.0 g/dL Normal 29.9-35.2 [facility] Comment on above: Performed By: #### C BC ####[facility] Oqpmwtiaiz2658 [place] [address]Dr. Soniya Chi MCV (RBC) [Entitic vol] 91.9 fL Normal 81.0-99.0 [facility] Comment on above: Performed By: #### C BC ####[facility] Wgodducckf986[address] [place], [place] [address]DrKarolina Chi MONO # 0.5 103/ul Normal 0.3-0.8 [facility] Comment on above: Performed By: #### C BC ####[facility] Evjixorsuf7[address] [place], [place] [address]Dr. Soniya Chi Monocytes/100 WBC (Bld) 7.4 % Normal 1.7-12.0 [facility] Comment on above: Performed By: #### C BC ####[facility] Xrvnzhyjka[address] [place], [place] [address]Dr. Soniya Chi NEUT # 5.1 103/ul Normal 1.4-6.5 [facility] Comment on above: Performed By: #### C BC ####[facility] Bpnmjwcghr50[address] [place], [place] [address]Dr. Soniya Chi Neutrophils/100 WBC (Bld) 69.6 % Normal 43.0-75.0 [facility] Comment on above: Performed By: #### C BC ####[facility] Ckrwrbguax65[address] [place], [place] [address]DrKarolina Chi Platelet mean volume (Bld) [Entitic vol] 9.7 fL Normal 9.5-13.5 [facility] Comment on above: Performed By: #### C BC ####[facility] Zludcqelfj[address] [place], [place] [address]Dr. Soniya Chi PLT 248 103/ul Normal 150-450 [facility] Comment on above: Performed By: #### C BC ####[facility] Pcramxukdt5679 [place] [address]Dr. Soniya Chi RBC 4.21 106/ul Normal 4.20-5.[address] [facility] Comment on above: Performed By: #### C BC ####[facility] Tjvkotgexh4663 [place] [address]Dr. Soniya Chi WBC 7.3 103/ul Normal 4.0-11.[address] [facility] Comment on above: Performed By: #### C BC ####[facility] Xgwnficevt6496 [place] [address]DrKarolina Chi PROF 14(COMP METB)on 022 Albumin [Mass/Vol] 3.8 g/dL Normal 3.4-5.0 [facility] Comment on above: Performed By: #### C MP ####[facility] Aprsncicbl[address] [place], [place] [address]DrKarolina Chi Albumin/Globulin [Mass ratio] 1.0 {ratio} Normal [facility] Comment on above: Performed By: #### C MP ####[facility] Wmtdsstndg3764 [place] [address]Dr. Soniya Chi ALP [Catalytic activity/Vol] 71 U/L Normal 46-[address] [facility] Comment on above: Performed By: #### C MP ####[facility] Wngfravzww9773 [place] [address]DrKarolina Chi ALT [Catalytic activity/Vol] 21 U/L Normal 14-59 [facility] Comment on above: Performed By: #### C MP ####[facility] Ktedpccmxx5058 [place] [address]11DrKarolina Chi Anion gap [Moles/Vol] 12.4 mmol/L Normal [facility] Comment on above: Performed By: #### C MP ####[facility] Fvrwhmllfs2566 [place] [address]Dr. Soniya Chi AST [Catalytic activity/Vol] 12 U/L Critically low 15-[address] [facility] Comment on above: Performed By: #### C MP ####[facility] Azaunbphbq5630 [place] [address]Dr. Soniya Chi Bilirubin [Mass/Vol] 0.9 mg/dL Normal 0.2-1.[address] [facility] Comment on above: Performed By: #### C MP ####[facility] Rpbjonxtbq4792 [place] [address]Dr. Soniya Chi Calcium [Mass/Vol] 9.6 mg/dL Normal 8.5-10.1 [facility] Comment on above: Performed By: #### C MP ####[facility] Oplalhdxoq3996 [place] [address]Dr. Soniya Chi Chloride [Moles/Vol] 103 mmol/L Normal 98-[address] [facility] Comment on above: Performed By: #### C MP ####[facility] Ghokbeoyjq[address] [place], [place] [address]Dr. Soniya Alon CO2 [Moles/Vol] 26.7 mmol/L Normal 21.0-32.0 [facility] Comment on above: Performed By: #### C MP ####[facility] Hneeatpclx7133 [place] [address]Dr. Soniya Chi Creatinine [Mass/Vol] 1.30 mg/dL Critically high 0.55-1.[address] [facility] Comment on above: Performed By: #### C MP ####[facility] Wdlviqonmt3420 [place] [address]Dr. Soniya Alon EGFR-AF BELIZEAN 50 mL/min/1.73m2 Critically low >=60 [facility] Comment on above: Performed By: #### C MP ####[facility] Kbfefhiagz5475 [place] [address]Dr. Soniya Alon EGFR-NON AF BELIZEAN 41 mL/min/1.73m2 Critically low >=60 [facility] Comment on above: Performed By: #### C MP ####[facility] Klbxqqdekt0603 [place] [address]Dr. Soniya Alon Globulin (S) [Mass/Vol] 3.7 g/dL Normal [facility] Comment on above: Performed By: #### C MP ####[facility] Iailqxzpcp3427 [place] [address]Dr. Soniya Chi Glucose [Mass/Vol] 104 mg/dL Normal 74-106 [facility] Comment on above: Performed By: #### C MP ####[facility] Vpegxajlqo3354 [place] [address]Dr. Soniya Chi Potassium [Moles/Vol] 4.1 mmol/L Normal 3.5-5.[address] [facility] Comment on above: Performed By: #### C MP ####[facility] Yppvghxalb0130 [place] [address]Dr. Soniya Chi Protein [Mass/Vol] 7.5 g/dL Normal 6.4-8.2 [facility] Comment on above: Performed By: #### C MP ####[facility] Iurbprjlgz1107 [place] [address]Dr. Soniya Chi Sodium [Moles/Vol] 138 mmol/L Normal 136-145 [facility] Comment on above: Performed By: #### C MP ####[facility] Tsdgemsqzh8196 [place] [address]Dr. Soniya Chi Urea nitrogen [Mass/Vol] 19.0 mg/dL Critically high 7.0-18.[address] [facility] Comment on above: Performed By: #### C MP ####[facility] Wziczmdalz5247 [place] [address]Dr. Soniya Chi Urea nitrogen/Creatinin e [Mass ratio] 14.6 mg/mg Normal [facility] Comment on above: Performed By: #### C MP ####[facility] Chlquhxzwb1305 [place] [address]Dr. Soniya Chi GLUCOSE BLOODon 11-29-2021 Glucose [Mass/Vol] 106 mg/dL Normal 74-106 [facility] Comment on above: Performed By: #### G COLLEEN, LIPID ####[facility] [id number] [place] [id number]. Soniya Chi LIPID PROFILEon 11-29-2021 CHOL-HDL RATIO NORM SEE BELOW Normal [facility] Comment on above: Result Comment: 3.3 - 4.4 LOW RISK 4.4 - 7.1 AVERAGE RISK 7.1 - 11.0 MODERATE RISK >11.0 HIGH RISK Performed By: #### G COLLEEN, LIPID ####[facility] [address] [place], [place] [address]Ay. Gypsyjuan Chi Cholesterol [Mass/Vol] 230 mg/dL Critically high <=200 [facility] Comment on above: Performed By: #### G COLLEEN, LIPID ####[facility] [address] [place], [place] [address]Aw. Soniya Chi Cholesterol in HDL [Mass/Vol] 66 mg/dL Critically high 40-60 [facility] Comment on above: Performed By: #### G COLLEEN, LIPID ####[facility] [address] [place], [place] [address]Dl. Soniya Chi Cholesterol in LDL [Mass/Vol] 113.2 mg/dL Normal [facility] Comment on above: Performed By: #### G COLLEEN, LIPID ####[facility] [address] [place], [place] [address]Nb. Gypsyjuan Chi Cholesterol.total/ Cholesterol in HDL [Mass ratio] 3.5 {ratio} Normal [facility] Comment on above: Performed By: #### G COLLEEN, LIPID ####[facility] [address] [place] [id number]. Soniya Chi HDL NORMAL > or = 60 mg/dl - LOW CARDIOVASCULAR RISK <40 mg/dl - HIGH CARDIOVASCULAR RISK Normal [facility] Comment on above: Performed By: #### G COLLEEN, LIPID ####[facility] [address] [place] [id number]. Gypsylan Chi LDL CALC NORMAL SEE BELOW Normal [facility] Comment on above: Result Comment: <100 mg/dl OPTIMAL 100 - 129 mg/dl NEAR OR ABOVE OPTIMAL 130 - 159 mg/dl BORDERLINE HIGH 160 - 189 mg/dl HIGH >190 mg/dl VERY HIGH Performed By: #### G COLLEEN, LIPID ####[facility] [address] [place] [id number]. Yilan Chi Triglyceride [Mass/Vol] 254 mg/dL Critically high <=[address] [facility] Comment on above: Performed By: #### G COLLEEN, LIPID ####[facility] [address] [place], [place] [address]Ex. Soniya Chi VLDL CALC 50.8 mg/dL Normal [facility] Comment on above: Performed By: #### G COLLEEN, LIPID ####[facility] [address] [place], [place] [address]Nn. Soniya Chi Vital Signs Date Time Vital Sign Value Performing Clinician Facility 10-06-2023 14:27-0400 Body temperature 98.06 [degF] [facility] 10-06-2023 14:27-0400 Diastolic blood pressure 82 mm[Hg] [facility] 10-06-2023 14:27-0400 Heart rate 64 /min [facility] 10-06-2023 14:27-0400 Mean blood pressure 101 mm[Hg] [facility] 10-06-2023 14:27-0400 Respiratory rate 16 /min [facility] 10-06-2023 14:27-0400 SaO2% (BldA) [Mass fraction] 97 % [facility] 10-06-2023 14:27-0400 Systolic blood pressure 140 mm[Hg] [facility] 09-03-2023 14:12-0400 Blood Pressure Location Milo GARCIA [facility] [place] 09-03-2023 14:12-0400 Diastolic blood pressure 76 mm[Hg] Milo GARCIA [facility] [place] 09-03-2023 14:12-0400 Heart rate 72 /min Milo NILL [facility] [place] 09-03-2023 14:12-0400 Respiratory rate 16 /min Milo NILL [facility] [place] 09-03-2023 14:12-0400 Systolic blood pressure 120 mm[Hg] Milo NILL [facility] [place] 09-01-2023 09:51-0400 Diastolic blood pressure 79 mm[Hg] [facility] 09-01-2023 09:51-0400 Heart rate 61 /min [facility] 09-01-2023 09:51-0400 Mean blood pressure 93 mm[Hg] [facility] 09-01-2023 09:51-0400 Respiratory rate 16 /min [facility] 09-01-2023 09:51-0400 SaO2% (BldA) [Mass fraction] 97 % [facility] 09-01-2023 09:51-0400 Systolic blood pressure 121 mm[Hg] [facility] 10-09-2022 07:06-0400 Diastolic blood pressure 89 mm[Hg] Zaira Saravia DO Work Phone: [facility] [email or web address] 10-09-2022 07:06-0400 Heart rate 46 /min Zaira Saravia DO Work Phone: [facility] 10-09-2022 07:06-0400 Respiratory rate 29 /min Zaira Saravia DO Work Phone: [facility] 10-09-2022 07:06-0400 SaO2% (BldA) [Mass fraction] 99 % Zaira Saravia DO Work Phone: [facility] [employer] 10-09-2022 07:06-0400 Systolic blood pressure 112 mm[Hg] Zaira Saravia DO Work Phone: [facility] [employer] 10-08-2022 13:25-0400 Body temperature 97.11 [degF] Zaira Saravia DO Work Phone: [facility] [employer] 10-08-2022 13:21-0400 Body height 165.1 cm Zaira Saravia DO Work Phone: [facility] [employer] 10-08-2022 13:21-0400 Body mass index (BMI) [Ratio] 29.95 kg/m2 Zaira Saravia DO Work Phone: [facility] [employer] 10-08-2022 13:21-0400 Body weight 81.65 kg Zaira Saravia DO Work Phone: [facility] 06-18-2022 14:39-0500 Body temperature 97.3 [degF] MD [...] SaO2% (BldA) [Mass fraction] 95 % MD Mleva Escobedo Work Phone: [facility] 06-18-2022 [...] Start: 02-24-2024 ambulatory Keya L Ezequiel [facility]: [facility] [place] Start: 12-16-2023 ambulatory Kyea L Ezequiel [facility]: [facility] Start: 11-04-2023 ambulatory Keya L Ezequiel Facility: [facility] [place] Start: 10-28-2023 ambulatory Melva Escobedo Facility:[facility] Start: 10-15-2023 End: 10-15-2023 ambulatory AB [facility] Start: 10-15-2023 End: 10-15-2023 Encounter for other preprocedural examination AB [facility] Start: 10-06-2023 End: 10-06-2023 ambulatory Mhd Yaser Al-Brinda Facility:[facility] Start: 10-06-2023 End: 10-06-2023 Patient encounter procedure [facility] Start: 09-10-2023 ambulatory Keya Ezequiel Facility:[facility] Start: 09-03-2023 End: 09-03-2023 ambulatory Milo R NILL Facility: [facility] Start: 09-03-2023 End: 09-03-2023 Patient encounter procedure Milo R NILL [facility] Nill/Said [place] Start: 09-02-2023 ambulatory Keya Ezequiel Facility:[facility] [place] Start: 09-01-2023 End: 09-01-2023 ambulatory Keya L Ezequiel Facility:[facility] Start: 09-01-2023 End: 09-01-2023 Patient encounter procedure [facility]hd [facility] Start: 08-28-2023 End: 08-28-2023 ambulatory JOSEPH DOMINGUEZ Not Available Start: 08-05-2023 End: 08-05-2023 ambulatory Keya L Ezequiel Facility:[facility] Start: 07-28-2023 End: 07-28-2023 ambulatory Kayley Snow Abhishek Facility:[facility] Start: 06-24-2023 End: 06-24-2023 ambulatory Keya L Ezequiel Facility:[facility] Start: 06-11-2023 End: 06-11-2023 Lab Drop off [facility] Start: 06-11-2023 End: 06-11-2023 ambulatory Keya L Ezequiel Facility:[facility] Start: 04-29-2023 End: 04-29-2023 ambulatory JOSEPH DOMINGUEZ Not Available Start: 02-21-2023 End: 02-21-2023 ambulatory Keya L Ezequiel Facility:[facility] Start: 02-04-2023 End: 02-04-2023 ambulatory [facility] Start: 10-09-2022 End: 10-13-2022 Evaluation and management of inpatient Jamil Lundberg Facility:[facility] Start: 10-08-2022 End: 10-09-2022 Emergency department patient visit [facility] Start: 10-08-2022 End: 10-09-2022 Emergency department patient visit Zaira Saravia DO Work Phone: [facility] ED Comment on above: Altered mental statu s, unspecified altered mental status type (Primary Dx); Hypernatremia; Urinary tract infection without hematuria, site unspecified Start: 10-08-2022 End: 10-08-2022 ambulatory [facility] Start: 10-08-2022 End: 10-08-2022 Subsequent hospital visit by physician Jamil Lundberg MD Work Phone: [facility] Start: 10-05-2022 End: 10-06-2022 ambulatory [facility] Start: 10-04-2022 End: 10-05-2022 ambulatory [facility] Start: 10-04-2022 End: 10-04-2022 Subsequent hospital visit by physician Jamil Lundberg MD Work Phone: [facility] Start: 10-03-2022 End: 10-03-2022 ambulatory [facility] Start: 10-02-2022 End: 10-02-2022 Subsequent hospital visit by physician Jamil Lundberg MD Work Phone: [facility] Start: 09-28-2022 End: 09-29-[address] MELVA ESCOBEDO . Facility:[facility] Start: 09-16-2022 End: 09-17-[address] MELVA ESCOBEDO . Facility:[facility] Start: 08-27-2022 End: 08-28-2022 ambulatory [facility] Start: 08-27-2022 End: 08-27-2022 Subsequent hospital visit by physician Jamil Lundberg MD Work Phone: [facility] Start: 08-25-2022 End: 08-26-2022 ambulatory [facility] Start: 08-25-2022 End: 08-25-2022 Subsequent hospital visit by physician Jamil Lundberg MD Work Phone: [facility] Start: 08-16-2022 End: 08-22-2022 Evaluation and management of inpatient DR MELVA ESCOBEDO . Facility:[facility] Start: 08-15-2022 End: 08-15-[address] MELVA ESCOBEDO . Facility:[facility] Start: 08-13-2022 End: 08-14-[address] MELVA ESCOBEDO . Facility:[facility] Start: 05-30-2022 End: 06-18-2022 Evaluation and management of inpatient MD Melva Escobedo Work Phone: [address] Work Phone: Start: 05-28-2022 End: 05-30-2022 Evaluation and management of inpatient DR MELVA ESCOBEDO . Facility:[facility] Start: 05-06-2022 End: 05-06-[address] MELVA ESCOBEDO . Facility:[facility] Start: 04-23-2022 End: 04-24-[address] MELVA ESCOBEDO . Facility:[facility] Start: 04-17-2022 End: 04-18-[address] MELVA ESCOBEDO . Facility:[facility] Start: 04-03-2022 End: 04-03-[address] COBY BUCK . Facility:[facility] Start: 12-31-2021 End: 12-31-[address] MELVA ESCOBEDO . Facility:[facility] Start: 12-18-2021 End: 12-18-[address] MELVA ESCOBEDO . Facility:[facility] Start: 12-15-2021 End: 12-15-2021 ambulatory TATUM WHEAT Facility:[facility] Start: 12-12-2021 End: 12-13-[address] MELVA ESCOBEDO . Facility:[facility] Start: 11-29-2021 End: 11-30-2021 ambulatory DORA LAZARO Facility:[facility] Procedures Date Procedure Procedure Detail Performing Clinician Start: 06-02-2023 Biopsy of breast Michae l NILL Start: 05-02-2023 Biopsy of breast Michae l NILL Start: 10-09-2022 Basic metabolic pane l calcium total Zaira Saravia DO Work Phone: Start: 10-09-2022 Basic metabolic pane l calcium total Zaira Saravia DO Work Phone: Start: 10-09-2022 Basic metabolic pane l calcium total Zaira R Saravia DO Work Phone: Start: 10-08-2022 Basic metabolic pane l calcium total Zaira Fineis DO Work Phone: Start: 10-08-2022 Basic metabolic pane l calcium total Zaira R Saravia DO Work Phone: Start: 10-08-2022 Basic metabolic pane l calcium total Zaira Fineis DO Work Phone: Start: 10-08-2022 Urinalysis microscopic only Zaira Charles Fineis DO Work Phone: Start: 10-08-2022 Urnls [...] metabolic pane l calcium total Melva Morales [employer] Work Phone: Start: 10-04-2022 Comprehensive metabo lic panel Jamil Lundberg MD Work Phone: Start: 10-04-2022 Lipid panel Jamil pierce MD Work Phone: Start: 10-02-2022 Assay of thyroid stimulating hormone tsh Jamil Lundberg MD Work Phone: Start: 08-27-2022 Basic metabolic pane l calcium total Mee Kntuson [employer] Work Phone: Start: 08-25-2022 Urnls dip stick/tabl [...] contrast MD Melva Escobedo Work Phone: Start: 06-02-2019 Cataract (disorder) Bgd Thien Start: 01-31-2019 Colonoscopy Keya montemayor Start: 04-28-2017 Cataract extraction and insertion of intraocular lens Keya Nieves Comment on above: CATARACT EXTRACTION WITH INTRAOCULAR LENS IMPLANTATION RIGHT EYE Biopsy of breast Milo Turner Tonsillectomy and adenoidectomy Keya Nieves Plan of Treatment Date Care Activity Detail Author Start: 12-16-2031 DTaP/Tdap/Td vaccine (2 - Tdap) DTaP/Tdap/Td vaccine (2 - Tdap) [facility] Start: 10-05-2027 Lipid panel Lipids [place] [employer] [facility] [email or web address] Start: 12-31-2022 Influenza vaccination Flu vacc ine (Season Ended) [facility] [email or web address] Start: 08-25-2022 Annual Wellness Visi t (AWV) Annual Wellness Visit (AWV) [facility] [email or web address] Start: 06-18-2022 [facility] Start: 06-15-2022 [facility] Start: 06-15-2022 Referral to keno writer [facility] Start: 05-30-2022 Hospital admission [facility] Start: 12-31-2021 Influenza vaccination Flu vaccine (# 1) [facility] [email or web address] Start: 02-16-2021 Pneumococcal 65+ yea rs Vaccine (2 - PPSV23 if available, else PCV20) Pneumococcal 65+ years Vaccine (2 - PPSV23 if available, else PCV20) [facility] [email or web address] Start: 2009 Screening for osteoporosis DEX A (modify frequency per FRAX score) [facility] Start: 2004 Screening for malign ant neoplasm of breast Breast cancer screen [facility] Start: 2004 Shingles vaccine (1 of 2) Stauffer gles vaccine (1 of 2) [facility] Start: 11-28-1999 Screening for malign ant neoplasm of colon [facility] Start: 1989 Diabetes screen Diabetes screen [facility] Start: 1973 DTaP/Tdap/Td vaccine (1 - Tdap) DTaP/Tdap/Td vaccine (1 - Tdap) [employer] Start: 1972 Hepatitis C screening Hepatitis C sc reen [employer] Start: 1966 Depression Screen Depression Screen [employer] Start: 05-29-1955 COVID-19 Vaccine (#1) COVID-19 Vacci ne (#1) [employer] End: 10-11-2022 Basic metabolic 2000 panel - Serum or Plasma Basic Metabolic Panel Lab STAT Every 2 Hours (Lab) for 35 Occurrences starting 10/08/2022 until 10/11/2022, 5 completed [employer] Work Phone: Comment on above: Every 2 Hours (Lab) for 35 Occurrences starting 10/08/2022 until 10/11/2022, 5 completed End: 08-25-2022 Culture, Urine [employer] Work Phone: Comment on above: Once for 1 Occurrenc es starting 08/25/2022 until 08/25/2022 End: 10-08-2022 Culture, Urine [employer] Work Phone: Comment on above: Once for 1 Occurrenc es starting 10/08/2022 until 10/08/2022 Patient Education Schizophrenia (DC) [facility] Behavioral Health DC Instructions [facility] Work Phone: Patient referral [facility] Work Phone: End: 10-02-2022 T3 [employer] Work Phone: Comment on above: Once for 1 Occurrenc es starting 10/02/2022 until 10/02/2022 End: 10-02-2022 T4 [employer] Work Phone: Comment on above: Once for 1 Occurrenc es starting 10/02/2022 until 10/02/2022 End: 10-02-2022 Thyroxine (T4) free [Mass/volume] in Serum or Plasma [employer] Work Phone: Comment on above: Once for 1 Occurrenc es starting 10/02/2022 until 10/02/2022 End: 10-02-2022 Triiodothyronine (T3) Free [Mass/volume] in Serum or Plasma [facility] [email or web address] Work Phone: Comment on above: Once for 1 Occurrenc es starting 10/02/2022 until 10/02/2022 [facility] Immunizations Immunization Date Immunization Notes Care Provider Mahogany gray 03-09-2022 SARS-CoV-2 (COVID-19 ) [id number] Keya Ezequiel [facility] Comment on above: Result Comment: 2022: [id number] 02-14-2022 influenza virus vaccine, unspecified formulation Keya Ezequiel [facility] 03-29-2021 SARS-CoV-2 (COVID-19 ) mRNA-1273 vaccine Keya Ezequiel [facility] Comment on above: Result Comment: 2022: [id number] 01-27-2021 influenza virus vaccine, unspecified formulation Keya Ezequiel [facility] 08-23-2020 SARS-CoV-2 (COVID-19 ) mRNA-1273 vaccine Keya Ezequiel [facility] 07-27-2020 SARS-CoV-2 (COVID-19 ) mRNA-1273 vaccine Keya Ezequiel [facility] 02-17-2020 pneumococcal conjuga te vaccine, 13 valent Keya Ezequiel [facility] 02-20-2019 influenza virus vaccine, unspecified formulation Keya Ezequiel [facility] 03-31-2018 influenza virus vaccine, unspecified formulation Keya Ezequiel [facility] Payers Date Payer Category Payer Medicare [id number] 2022 Private Health Insurance 2022 Self-pay 1959 Private Health Insurance [id number] 1954 Unknown [id number] 2.16.840.1.436901.3.579.2.593 1954 Unknown [id number] 2.16.840.1.875545.3.579.2.593 1954 Unknown [id number] 2.16.840.1.102100.3.579.2.593 1954 Unknown [id number] 2.16.840.1.637389.3.579.2.593 1954 Unknown [id number] 2.16.840.1.562140.3.579.2.593 1954 Unknown [id number] 2.16.840.1.405175.3.579.2.593 1954 Unknown [id number] 2.16.840.1.464296.3.579.2.593 1954 Unknown [id number] 2.16.840.1.864975.3.579.2.593 1954 Unknown [id number] 2.16.840.1.361556.3.579.2.593 1954 Unknown [id number] 2.16.840.1.768423.3.579.2.593 1954 Unknown [id number] 2.16.840.1.014163.3.579.2.593 1954 Unknown [id number] 2.16.840.1.223512.3.579.2.593 1954 Unknown [id number] 2.16.840.1.460254.3.579.2.593 1954 Unknown [id number] 2.16.840.1.522063.3.579.2.593 1954 Unknown [id number] 2.16.840.1.650548.3.579.2.593 1954 Unknown [id number] 2.16.840.1.419378.3.579.2.173 1954 Unknown [id number] 2.16.840.1.525627.3.579.2.173 1954 Unknown [id number] 2.16.840.1.633688.3.579.2.173 1954 Unknown [id number] 2.16.840.1.129787.3.579.2.196 1954 Unknown [id number] 2.16.840.1.519770.3.579.2.1259 1954 Unknown [id number] 2.16.840.1.842080.3.579.2.1259 1954 Unknown [id number] 2.16.840.1.175952.3.579.2.727 1954 Unknown [id number] 2.16.840.1.254042.3.579.2.727 1954 Unknown [id number] 2.16.840.1.514087.3.579.2.727 1954 Unknown [id number] 2.16.840.1.106387.3.579.2.727 1954 Unknown [id number] 2.16.840.1.065596.3.579.2.727 1954 Unknown [id number] 2.16.840.1.373036.3.579.2.727 1954 Unknown [id number] 2.16.840.1.977444.3.579.2.727 1954 Unknown [id number] 2.16.840.1.895437.3.579.2.727 1954 Unknown [id number] 2.16.840.1.917804.3.579.2.727 1954 Unknown [id number] 2.16.840.1.427186.3.579.2.727 1954 Unknown [id number] 2.16.840.1.651286.3.579.2.727 1954 Unknown [id number] 2.16.840.1.531551.3.579.2.72 Unknown Jose BARTLETT/JAVI [id number] Unknown [id number] Unknown [id number] 2.16.840.1.745326.3.579.2.531 Unknown [id number] 2.16.840.1.655240.3.579.2.531 Social History Date Type Detail Facility Start: 06-15-2022 End: 09-03-2023 Tobacco smoking status COIS Never smoked tobacco (finding) [facility] Comment on above: Never a smoker Start: 1955 Sex Assigned At Female F [facility] Tobacco smoking status COIS Tobacco smoking consumption unknown [facility] [employer] Work Phone: Start: 1955 Sex Assigned At Not on file B ON [employer] Phone: Tobacco smoking status Never [facility] [place] Comment on above: Never a smoker Sex Assigned At [facility] Goals Date Patient Goal Desired Activity /State Functional Status Date Assessment Result Facility 09-03-2023 Functional Status N/A General Hou ginger [place] 06-18-2022 Functional status Patient is Pro gressing Toward Baseline [facility] Work Phone: 05-30-2022 Functional status Disability Sta s Patient at Baseline [facility] Work Phone: Mental Status Date Assessment Result Facility 06-18-2022 Cognitive function Cognitive Sta s Patient is Progressing Toward Baseline [facility] Work Phone: Clinical Notes 05-31-2022 to 10-15-2023 Note Date & Type Note Facility 10-15-2023 Note [facility] Cardiology Clinic Note Chief Complaint: Patient here for 1 year follow up PAF, hypertension, and chest pain. She also needs clearance for breast surgery. Had labs and EKG last week. Surgery scheduled for next Friday at [facility] with Dr. Garcia. states she is no longer on Eliquis because of a few falls last year. She denies chest pain, SOB, lightheadedness/syncope. Says palpitations are much less frequent than they used to be. HPI: Marley is in the clinic today to follow up from her recent hospitalization at [facility]. She states that she feels palpitations and/or irregular heartbeats. Her home nurse that came last week stated that she thought Marley's ankles were a bit swollen. No excessive fatigue, chest pain, ABDALLA, or SOB. She was recently admitted to [facility] for AMS, hypothermia, hypotension, hypothyroidism, and UTI. [...] denies c/o SOB, dizziness/LH, syncope, bleeding issues. UPDATE 10/15/2023 Doing relatively well; continues to have psychiatric issues but however is back home No chest pain, no significant shortness of breath has occasional palpitations She had falls while she was in hospice care however she was significantly sicker at that time. Currently she has no falls. She is stable on her feet. There has been no syncopal episodes. She was unfortunately recently diagnosed with breast cancer and requires upcoming surgery Cardiology ROS: Review of Systems Cardiovascular: Positive for palpitations. All other systems reviewed and are negative. Past Medical History She has no past medical history on file. Surgical History She has no past surgical history on file. Social History She reports that she has never smoked. She has never used smokeless tobacco. She reports current alcohol use. She reports that she does not use drugs. Family History No family history on file. Allergies Cephalexin, Penicillins, and Sulfamethoxazole Medications Current Outpatient Medications: acetaminophen (Tylenol) 500 mg [...] , Rfl: ergocalciferol (Vitamin D-2) 1.25 MG (57853 Units) capsule, TAKE 1 CAPSULE BY MOUTH [...] MOUTH EVERYDAY AT BEDTIME, Disp: , Rfl: Last Recorded Vitals BP 114/82 (BP Location: Left arm, Patient Position: Sitting) Pulse 58 Ht 1.524 m (5') Wt 79.4 kg (175 lb) SpO2 98% BMI 34.18 kg/m??? Physical Examination: GENERAL: alert and oriented x3, well developed, in no acute distress. HEAD: atraumatic, normocephalic. EYES: SHAHRZAD, EOMI. NECK: trachea midline, no JVD present, no carotid bruits present. CARDIAC: S1, S2 present. RRR. No murmur, rubs, or gallops. RESPIRATORY: CTAB, no increased effort of breathing, no rales, rhonchi, or wheezing. ABDOMEN: soft, nontender, nondistended. EXTREMITIES: no lower extremity edema, peripheral pulses are 2+ bilaterally. No rash/skin discoloration present. NEURO: strength/sensation equal and symmetric in bilateral upper and lower extremities. PSYCH: appropriate mood, affect, and judgement. Labs: 08/22/22 Hgb 8, plt 133 Cr [...] 42. IVC is dilated. Trivial pericardial effusion Assessment: Paroxysmal atrial fibrillation/flutter Preoperative evaluation Essential hypertension Hypokalemia Mild mitral regurgitation (more content not included)... [facility] 10-09-2023 Note [id number] [facility] 10-06-2023 Hospital Discharge instructions Patient Education 10/06/2023 14:45:53 Lumpectomy, Care After Lumpectomy, Care After The following information offers guidance on how to care for yourself after your procedure. Your health care provider may also give you more specific instructions. If you have problems or questions, contact your health care provider. What can I expect after the procedure? After the procedure, it is common to have: Some pain or redness at the incision site. Breast swelling. Breast tenderness. Stiffness in your arm or shoulder. A change in the shape and feel of your breast. Scar tissue that feels hard to the touch in the area where the lump was removed. Follow these instructions at home: Medicines Take bope-qju-ydeesne and prescription medicines only as told by your health care provider. If you were prescribed an antibiotic, take it as told by your health care provider. Do not stop taking the antibiotic even if you start to feel better. Ask your health care provider if the medicine prescribed to you: ?Requires you to avoid driving or using machinery. ?Can cause constipation. You may need to take these actions to prevent or treat constipation: ?Drink enough fluid to keep your urine pale yellow. ?Take olqe-nop-xezsely or prescription medicines. ?Eat foods that are high in fiber, such as beans, whole grains, and fresh fruits and vegetables. ?Limit foods that are high in fat and processed sugars, such as fried or sweet foods. Incision care Follow instructions from your health care provider about how to take care of your incision. Make sure you: ?Wash your hands with soap and water for at least 20 seconds before and after you change your bandage (dressing). If soap and water are not available, use hand motor grader operator. ?Change your dressing as told by your health care provider. ?Leave stitches (sutures), skin glue, or adhesive strips in place. These skin closures may need to stay in place for 2 weeks or longer. If adhesive strip edges start to loosen and curl up, you may trim the loose edges. Do not remove adhesive strips completely unless your health care provider tells you to do that. Check your incision area every day for signs of infection. Check for: ?More redness, swelling, or pain. ?Fluid or blood. ?Warmth. ?Pus or a bad smell. Keep your dressing clean and dry. If you were sent home with a surgical drain in place, follow instructions from your health care provider about emptying it. Bathing Do not take baths, swim, or use a hot tub until your health care provider approves. Ask your health care provider if you may take showers. You may only be allowed to take sponge baths. Activity Rest as told by your health care provider. Do not sit for a long time without moving. Get up to take short walks every 1 2 hours. This will improve blood flow and breathing. Ask for help if you feel weak or unsteady. Be careful to avoid any activities that could cause an injury to your arm on the side of your surgery. Do not lift anything that is heavier than 10 lb (4.5 kg), or the limit that you are told, until your health care provider says that it is safe. Avoid lifting with the arm that is on the side of your surgery. Do not carry heavy objects on your shoulder on the side of your surgery. Do exercises to keep your shoulder and arm from getting stiff and swollen. Talk with your health care provider about which exercises are safe for you. Return to your normal activities as told by your health care provider. Ask your health care provider what activities are safe for you. General instructions Wear a supportive bra as told by your health care provider. Raise (elevate) your arm above the level of your heart while you are sitting or lying down. Do not wear tight jewelry on your arm, wrist, or fingers on the side of your surgery. Wear compression stockings as told by your health care provider. These stockings help to prevent blood clots and reduce swelling in your legs. If you had any lymph nodes removed during your procedure, be sure to tell all of your health care providers. It is important to share this information before you have certain procedures, such as blood tests or blood pressure measurements. Keep all follow-up visits. ?You may need to be screened for extra fluid around the lymph nodes and swelling in the breast and arm (lymphedema). Contact a health care provider if: You develop a rash. You have a fever. Your pain worsens or pain medicine is not working. You have swelling, weakness, or numbness in your arm that does not improve after a few weeks. You have new swelling in your breast. You have any of these signs of infection: ?More redness, swelling, or pain in your incision area. ?Fluid or blood coming from your incision. ?Warmth coming from the incision area. ?Pus or a bad smell coming from your incision. Get help right away if: You have very bad pain in your breast or arm. You have swelling in your legs or arms. You have redness, warmth, or pain in your leg or arm. You have chest pain. You have difficulty breathing. These symptoms may be an emergency. Get help right away. Call 911. Do not wait to see if the symptoms will go away. Do not drive yourself to the hospital. Summary After the procedure, it is common to have breast tenderness, swelling in your breast, and stiffness in your arm and shoulder. Follow instructions from your health care provider about how to take care of your incision. Do not lift anything that is heavier than 10 lb (4.5 kg), or the limit that you are told, until your health care provider says that it is safe. Avoid lifting with the arm that is on the side of your surgery. If you had any lymph nodes removed during your procedure, be sure to tell all of your health care providers. This information is not intended to replace advice given to you by your health care provider. Make sure you discuss any questions you have with your health care provider. Document Revised: 07/28/2022 Document Reviewed: 07/28/2022 [employer] Patient Education 2022 [employer]. 10/06/2023 14:45:52 Lumpectomy Lumpectomy A lumpectomy, sometimes called a partial mastectomy, is surgery to remove a cancerous tumor or mass (the lump) from a breast. It is a form of breast-conserving or breast-preservation surgery. This means that the cancerous tissue is removed but the breast remains intact. During a lumpectomy, the portion of the breast that contains the tumor is removed. Lymph nodes under your arm may also be removed. Lymph nodes are part of the body's disease-fighting system (immune system) and are usually the first place where breast cancer spreads. Tell a health care provider about: Any allergies you have. All medicines you are taking, including vitamins, herbs, eye drops, creams, and gofh-yim-xemllfj medicines. Any problems you or family members have had with anesthetic medicines. Any bleeding problems you have. Any surgeries you have had. Any medical conditions you have. Whether you are or may be . What are the risks? Generally, this is a safe procedure. However, problems may occur, including: Bleeding. Infection. Allergic reaction to medicines. Pain, swelling, weakness, or numbness in the arm on the side of your surgery. Temporary swelling. Change in the shape of the breast, especially if a large portion is removed. Scar tissue that forms at the surgical site and feels hard to the touch. Blood clots. What happens before the procedure? When to stop eating and drinking Follow instructions from your health care provider about what you may eat and drink. These may include: 8 hours before your procedure ? Stop eating most foods. Do not eat meat, fried foods, or fatty foods. ?Eat only light foods, such as toast or crackers. ?All liquids are okay except energy drinks and alcohol. 6 hours before your procedure ?Stop eating. ?Drink only clear liquids, such as water, clear fruit juice, black coffee, plain tea, and sports drinks. ?Do not drink energy drinks or alcohol. 2 hours before your procedure ?Stop drinking all liquids. ?You may be allowed to take medicines with small sips of water. If you do not follow your health care provider's instructions, your procedure may be delayed or canceled. Medicines Ask your health care provider about: Changing or stopping your regular medicines. These include any diabetes medicines or blood thinners you take. Taking medicines such as aspirin and ibuprofen. These medicines can thin your blood. Do not take them unless your health care provider tells you to. Taking uykw-cfb-wurfwzt medicines, vitamins, herbs, and supplements. Surgery safety Ask your health care provider how your surgery site will be marked. ?A procedure may be done to locate and hayder the tumor area in the breast (localization). This will guide the surgeon to where the incision will be made. This may be done with: ?Imaging, such as a mammogram, ultrasound, or MRI. ?Insertion of a small wire, clip, or seed, or an implant that will reflect a radar signal. Also, ask what steps will be taken to help prevent infection. These may include: ?Washing skin with a germ-killing soap. ?Taking antibiotic medicine. General instructions You may have screening tests or exams to get normal measurements of your arm, also called baseline measurements. These can be compared to measurements done after surgery to monitor for swelling (lymphedema) that can develop after having lymph nodes removed. If you will be going home right after the procedure, plan to have a responsible adult: ?Take you home from the hospital or clinic. You will not be allowed to drive. ? Care for you for the time you are told. What happens during the procedure? An IV will be inserted into one of your veins. You may be given: ?A sedative. This helps you relax. ? Anesthesia. This will: ?Numb certain areas of your body. ?Make you fall asleep for surgery. An electric scalpel will be used to reduce bleeding (electrocautery knife). A curved incision that follows the natural curve of your breast will be made. The tumor will be removed along with some of the tissue around it. This will be sent to the lab for testing. Your health care provider may also remove lymph nodes at this time if needed. If the tumor is close to the muscles over your chest, some muscle tissue may also be removed. A small drain tube may be inserted into your breast area or armpit to collect fluid that may build up after surgery. This tube will be connected to a suction bulb on the outside of your body to remove the fluid. The incision will be closed with stitches (sutures). A bandage (dressing) may be placed over the incision. The procedure may vary among health care providers and hospitals. What happens after the procedure? Your blood pressure, heart rate, breathing rate, and blood oxygen level will be monitored until you leave the hospital or clinic. You will be given medicine for pain as needed. You will be encouraged to get up and walk as soon as you can. This will improve blood flow and breathing. Ask for help if you feel weak or unsteady. You may have a drain tube in place for 2 3 days to prevent a collection of blood (hematoma) from developing in the breast. You may have a pressure bandage applied for 1 2 days to prevent bleeding or swelling. Ask your health care provider how to care for your bandage at home. You may be given a tight sleeve to wear over your arm on the side of your surgery. Wear the sleeve as told by your health care provider. Do not drive or operate machinery until your health care provider says that it is safe. Where to find more information [place] [employer]: cancer.org National Cancer [place]: cancer.gov Summary A lumpectomy, sometimes called a partial mastectomy, is surgery to remove a cancerous tumor or mass (the lump) from a breast. During a lumpectomy, the portion of the breast that contains the tumor is removed. Plan to have someone take you home from the hospital or clinic. You may have a drain tube in place for 2 3 days to prevent a collection of blood (hematoma) from developing in the breast. This information is not intended to replace advice given to you by your health care provider. Make sure you discuss any questions you have with your health care provider. Document Revised: 08/12/2022 Document Reviewed: 07/28/2022 [employer] Patient Education 2022 [employer]. [facility] 09-03-2023 Note Chief Complaint consultation to discuss lumpectomy HPI Staff 67 year old female presents on consultation from Dr. Neumann to discuss lumpectomy. 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 Denies breast pain. No palpable lumps. Denies skin changes. Reports nipple has has been inverted for may years, denies nipple discharge. New inversion of left nipple. Diagnostic trevor and US of left breast scheduled for 09/16. History of Present Illness 67 yo female with h/o htn, hyperlipidemia, schizophrenia, LISA, osteoporosis, referred for right breast invasive ductal carcinoma with DCIS, ER/CT +, HER2 negative 6 mm spiculated lesion noted on mammogram at 3 o'clock position, patient underwent stereotactic biopsy x 2; patient reports new onset of left nipple inversion that began several weeks ago, no nipple discharge, left mammogram and US scheduled per oncology, had normal left mammogram 04/2023; fmhx of breast cancer in patient's mother dx at age 85; no history of hormone therapy. Review of Systems PHQ Score Initial Depression Screen Score: 0 SCORE ROS - Provider Constitutional: no fever, no sweats, no weight loss. Eyes: no glasses, no blurred vision, no visual loss. ENMT: no dentures, no hoarseness, no swallowing difficulties, no hearing loss, no ear infection(s), no nose bleeds. Cardiovascular: normal blood pressure, no chest pain, regular heartbeat, no heart murmur. Respiratory: no shortness of breath, no cough, no asthma, no wheezing. Gastrointestinal: no nausea, no vomiting, no diarrhea, no constipation, no blood in stool, no change in bowel habits, no abdominal pain, no hepatitis. Genitourinary: no kidney stones, no urine infection, no dysuria. Musculoskeletal: no pain, no weakness. Skin: no changing moles, no rash, no skin lumps. Neurologic: no seizures, no epilepsy, no headache. Psychiatric: no emotional or psychiatric problem. Heme/Lymph: no bleeding problems, no anemia, no blood clots, no transfusions. Allergy/Immunologic: no swollen lymph nodes/glands, no IV drug abuse. Other: Additional ROS info: Except as noted in the above Review of Systems and in the History of Present Illness, all other systems have been reviewed and are negative or noncontributory. Physical Exam Vitals & Measurements HR: 72(Peripheral) RR: 16 BP: 120/76 HT: 60 in HT: 152 cm WT: 78.3 kg WT: 172.26 lb BMI: 33.89 HEENT: normal conjunctiva, sclera clear, no scleral icterus, EOM intact, PERRLA. oral mucosa moist without lesions Neck: trachea midline , no mass, symmetric, no thyromegaly or nodules. no adenopathy Respiratory: lungs CTA, respirations non labored. Cardiovascular: regular rate and rhythm, no murmur, , no pedal edema or varicosities. Chest (Breasts): right breast with chronically inverted nipple, no discharge or skin changes, right medial breast with bx site and minimal induration, no mass or ecchymoses, no drainage; left breast with inverted nipple, no skin changes or discharge, no dominant masses. Gastrointestinal: soft, non distended, no tenderness, no masses, no palpable hernias, diastasis recti no, no hepatosplenomegaly. normal bs Lymphatic: no cervical adenopathy, no axillary adenopathy, no supraclavicular adenopathy. Musculoskeletal: normal gait, digits and nails without infection, nodes, cyanosis, clubbing. Skin: no rashes, no lesions, no ulcers, no subcutaneous nodules, induration. Psychiatric/Neuro: oriented to time, place, person, judgement normal, affect flat, insight intact, no focal deficits. Tests: labs reviewed, x-rays reviewed, review of old records completed , Discussed surgical options, risks, and possible complications with patient. Assessment/Plan 1. Malignant neoplasm of lower-inner quadrant of right female breast (C50.311: Malignant neoplasm of lower-inner quadrant of right female breast) plan right breast lumpectomy with sentinel lymph node biopsy, informed consent obtained; await left breast mammogram and US to make sure no issues with left breast. Levofloxacin 750 mg IV prior to OR SCDs Follow-up No qualifying data available Problem List/Past Medical History Ongoing Anxiety disorder BMI 33.0-33.9,adult Fatigue HTN (hypertension) Hyperlipidemia, unspecified Hypothyroid Invasive ductal carcinoma of right breast Inversion of left nipple Loss of memory Major depression with psychotic features Obesity LISA (obstructive sleep apnea) Osteopenia Schizophrenia Vitamin D deficiency Historical Depression Hypothyroidism IBS - Irritable bowel syndrome Paranoid schizophrenia Screening for hyperlipidemia Wellness examination Procedure/Surgical History Biopsy of breast (06/2023), Biopsy of breast (05/2023), Cataract (06/02/2019), Colonoscopy (01/2019), CEIOL - Cataract extraction and insertion of intraocular lens (04/28/2017), Biopsy of breast, Tonsillectomy and adenoidectomy. Medications acetaminophen, 500 mg, q6hr, PRN Fosamax 70 (more content not included)... [facility] Comment on above: Result Comment: Elec tronically Signed By: RADHA ROPER, Milo Posey\Date and Time Signed: 09/03/23 15:09 EDT 09-01-2023 Hospital Discharge instructions Patient Education 09/01/2023 10:41:05 Lumpectomy, Care After Lumpectomy, Care After The following information offers guidance on how to care for yourself after your procedure. Your health care provider may also give you more specific instructions. If you have problems or questions, contact your health care provider. What can I expect after the procedure? After the procedure, it is common to have: Some pain or redness at the incision site. Breast swelling. Breast tenderness. Stiffness in your arm or shoulder. A change in the shape and feel of your breast. Scar tissue that feels hard to the touch in the area where the lump was removed. Follow these instructions at home: Medicines Take etgl-qph-afwcnvt and prescription medicines only as told by your health care provider. If you were prescribed an antibiotic, take it as told by your health care provider. Do not stop taking the antibiotic even if you start to feel better. Ask your health care provider if the medicine prescribed to you: ?Requires you to avoid driving or using machinery. ?Can cause constipation. You may need to take these actions to prevent or treat constipation: ?Drink enough fluid to keep your urine pale yellow. ?Take hvba-csy-ylrepdr or prescription medicines. ?Eat foods that are high in fiber, such as beans, whole grains, and fresh fruits and vegetables. ?Limit foods that are high in fat and processed sugars, such as fried or sweet foods. Incision care Follow instructions from your health care provider about how to take care of your incision. Make sure you: ?Wash your hands with soap and water for at least 20 seconds before and after you change your bandage (dressing). If soap and water are not available, use hand motor grader operator. ?Change your dressing as told by your health care provider. ?Leave stitches (sutures), skin glue, or adhesive strips in place. These skin closures may need to stay in place for 2 weeks or longer. If adhesive strip edges start to loosen and curl up, you may trim the loose edges. Do not remove adhesive strips completely unless your health care provider tells you to do that. Check your incision area every day for signs of infection. Check for: ?More redness, swelling, or pain. ?Fluid or blood. ?Warmth. ?Pus or a bad smell. Keep your dressing clean and dry. If you were sent home with a surgical drain in place, follow instructions from your health care provider about emptying it. Bathing Do not take baths, swim, or use a hot tub until your health care provider approves. Ask your health care provider if you may take showers. You may only be allowed to take sponge baths. Activity Rest as told by your health care provider. Do not sit for a long time without moving. Get up to take short walks every 1 2 hours. This will improve blood flow and breathing. Ask for help if you feel weak or unsteady. Be careful to avoid any activities that could cause an injury to your arm on the side of your surgery. Do not lift anything that is heavier than 10 lb (4.5 kg), or the limit that you are told, until your health care provider says that it is safe. Avoid lifting with the arm that is on the side of your surgery. Do not carry heavy objects on your shoulder on the side of your surgery. Do exercises to keep your shoulder and arm from getting stiff and swollen. Talk with your health care provider about which exercises are safe for you. Return to your normal activities as told by your health care provider. Ask your health care provider what activities are safe for you. General instructions Wear a supportive bra as told by your health care provider. Raise (elevate) your arm above the level of your heart while you are sitting or lying down. Do not wear tight jewelry on your arm, wrist, or fingers on the side of your surgery. Wear compression stockings as told by your health care provider. These stockings help to prevent blood clots and reduce swelling in your legs. If you had any lymph nodes removed during your procedure, be sure to tell all of your health care providers. It is important to share this information before you have certain procedures, such as blood tests or blood pressure measurements. Keep all follow-up visits. ?You may need to be screened for extra fluid around the lymph nodes and swelling in the breast and arm (lymphedema). Contact a health care provider if: You develop a rash. You have a fever. Your pain worsens or pain medicine is not working. You have swelling, weakness, or numbness in your arm that does not improve after a few weeks. You have new swelling in your breast. You have any of these signs of infection: ?More redness, swelling, or pain in your incision area. ?Fluid or blood coming from your incision. ?Warmth coming from the incision area. ?Pus or a bad smell coming from your incision. Get help right away if: You have very bad pain in your breast or arm. You have swelling in your legs or arms. You have redness, warmth, or pain in your leg or arm. You have chest pain. You have difficulty breathing. These symptoms may be an emergency. Get help right away. Call 911. Do not wait to see if the symptoms will go away. Do not drive yourself to the hospital. Summary After the procedure, it is common to have breast tenderness, swelling in your breast, and stiffness in your arm and shoulder. Follow instructions from your health care provider about how to take care of your incision. Do not lift anything that is heavier than 10 lb (4.5 kg), or the limit that you are told, until your health care provider says that it is safe. Avoid lifting with the arm that is on the side of your surgery. If you had any lymph nodes removed during your procedure, be sure to tell all of your health care providers. This information is not intended to replace advice given to you by your health care provider. Make sure you discuss any questions you have with your health care provider. Document Revised: 07/28/2022 Document Reviewed: 07/28/2022 [employer] Patient Education 2022 [employer] 09/01/2023 10:41:03 Lumpectomy Lumpectomy A lumpectomy, sometimes called a partial mastectomy, is surgery to remove a cancerous tumor or mass (the lump) from a breast. It is a form of breast-conserving or breast-preservation surgery. This means that the cancerous tissue is removed but the breast remains intact. During a lumpectomy, the portion of the breast that contains the tumor is removed. Lymph nodes under your arm may also be removed. Lymph nodes are part of the body's disease-fighting system (immune system) and are usually the first place where breast cancer spreads. Tell a health care provider about: Any allergies you have. All medicines you are taking, including vitamins, herbs, eye drops, creams, and zxyp-wxq-sdrvqjx medicines. Any problems you or family members have had with anesthetic medicines. Any bleeding problems you have. Any surgeries you have had. Any medical conditions you have. Whether you are or may be . What are the risks? Generally, this is a safe procedure. However, problems may occur, including: Bleeding. Infection. Allergic reaction to medicines. Pain, swelling, weakness, or numbness in the arm on the side of your surgery. Temporary swelling. Change in the shape of the breast, especially if a large portion is removed. Scar tissue that forms at the surgical site and feels hard to the touch. Blood clots. What happens before the procedure? When to stop eating and drinking Follow instructions from your health care provider about what you may eat and drink. These may include: 8 hours before your procedure ? Stop eating most foods. Do not eat meat, fried foods, or fatty foods. ?Eat only light foods, such as toast or crackers. ?All liquids are okay except energy drinks and alcohol. 6 hours before your procedure ?Stop eating. ?Drink only clear liquids, such as water, clear fruit juice, black coffee, plain tea, and sports drinks. ?Do not drink energy drinks or alcohol. 2 hours before your procedure ?Stop drinking all liquids. ?You may be allowed to take medicines with small sips of water. If you do not follow your health care provider's instructions, your procedure may be delayed or canceled. Medicines Ask your health care provider about: Changing or stopping your regular medicines. These include any diabetes medicines or blood thinners you take. Taking medicines such as aspirin and ibuprofen. These medicines can thin your blood. Do not take them unless your health care provider tells you to. Taking argx-uzk-ejbmuys medicines, vitamins, herbs, and supplements. Surgery safety Ask your health care provider how your surgery site will be marked. ?A procedure may be done to locate and hayder the tumor area in the breast (localization). This will guide the surgeon to where the incision will be made. This may be done with: ?Imaging, such as a mammogram, ultrasound, or MRI. ?Insertion of a small wire, clip, or seed, or an implant that will reflect a radar signal. Also, ask what steps will be taken to help prevent infection. These may include: ?Washing skin with a germ-killing soap. ?Taking antibiotic medicine. General instructions You may have screening tests or exams to get normal measurements of your arm, also called baseline measurements. These can be compared to measurements done after surgery to monitor for swelling (lymphedema) that can develop after having lymph nodes removed. If you will be going home right after the procedure, plan to have a responsible adult: ?Take you home from the hospital or clinic. You will not be allowed to drive. ? Care for you for the time you are told. What happens during the procedure? An IV will be inserted into one of your veins. You may be given: ?A sedative. This helps you relax. ? Anesthesia. This will: ?Numb certain areas of your body. ?Make you fall asleep for surgery. An electric scalpel will be used to reduce bleeding (electrocautery knife). A curved incision that follows the natural curve of your breast will be made. The tumor will be removed along with some of the tissue around it. This will be sent to the lab for testing. Your health care provider may also remove lymph nodes at this time if needed. If the tumor is close to the muscles over your chest, some muscle tissue may also be removed. A small drain tube may be inserted into your breast area or armpit to collect fluid that may build up after surgery. This tube will be connected to a suction bulb on the outside of your body to remove the fluid. The incision will be closed with stitches (sutures). A bandage (dressing) may be placed over the incision. The procedure may vary among health care providers and hospitals. What happens after the procedure? Your blood pressure, heart rate, breathing rate, and blood oxygen level will be monitored until you leave the hospital or clinic. You will be given medicine for pain as needed. You will be encouraged to get up and walk as soon as you can. This will improve blood flow and breathing. Ask for help if you feel weak or unsteady. You may have a drain tube in place for 2 3 days to prevent a collection of blood (hematoma) from developing in the breast. You may have a pressure bandage applied for 1 2 days to prevent bleeding or swelling. Ask your health care provider how to care for your bandage at home. You may be given a tight sleeve to wear over your arm on the side of your surgery. Wear the sleeve as told by your health care provider. Do not drive or operate machinery until your health care provider says that it is safe. Where to find more information [place] [employer]: cancer.org National Cancer [place]: cancer.gov Summary A lumpectomy, sometimes called a partial mastectomy, is surgery to remove a cancerous tumor or mass (the lump) from a breast. During a lumpectomy, the portion of the breast that contains the tumor is removed. Plan to have someone take you home from the hospital or clinic. You may have a drain tube in place for 2 3 days to prevent a collection of blood (hematoma) from developing in the breast. This information is not intended to replace advice given to you by your health care provider. Make sure you discuss any questions you have with your health care provider. Document Revised: 08/12/2022 Document Reviewed: 07/28/2022 [employer] Patient Education 2022 [employer]. Follow Up Care 08/14/2023 17:20:44 With:Thien ROPER, Deb Lopez, JULIÁN, ONC Address: When: Unknown Comments:Referral to surgery for right breast IDC.Diagnostic US and mammogram of the left breast for new breast inversion.21 gene Oncotype D score from the biopsy of the right breast if enough tissue is available.RTC in 3 weeks for results of above. [facility] 10-13-2022 Note Admission Informatio n Patient: Marley Osobrn : 1955 Date of Admission: 10/09/2022 08:56:04 Date of Discharge: 10/13/2022 16:45:00 Code Status: [place] DNR - CC Comfort Care PCP: Tamika [...] psychosis in a catatonic state, transferred from [facility] after presenting to their emergency department with chief complaint of altered mental status and hypernatremia. All medical history obtained from transfer paperwork and also patient's Freddy over the phone. Patient is currently residing at [facility]. Admitted to ICU. Consult to nephrology for hyponatremia management. Patient CODE STATUS changed to DNR CC. Transferred to general medical floor on 10/10. Discussed plan of care moving forward with , and options for discharge, after discussion with palliative care opted for hospice. Patient was accepted by [facility], closer to patient's home. Patient was discharged to their facility in stable condition. Assessment: Catatonic schizophrenia Hypernatremia Hypothermia Metabolic encephalopathy Bradycardia Chronic anticoagulation on Eliquis Discharge Plan: - [facility] Discharge Time Spent with Patient: 25 [...] summary Patient Discharge Condition Stable Discharge Disposition [facility] Objective Vitals & Measurements T: 36.1 [...] (OCTOBER 10) 2 (more content not included)... [facility] 10-10-2022 Note Chief Complaint Unresponsiveness Reason for Consultation Transfer from [facility] History of Present Illness This is a 66-year-old female with a history of longstanding schizophrenia who also has a history of paroxysmal atrial fibrillation and is on Eliquis 5 mg twice daily who has had multiple psychiatric hospitalizations over the last year according to the because of schizophrenia. She has been at [facility] as well as at [facility]. She has apparently been at her current [...] quite lethargic and was transferred to the [facility] she was found to be hypernatremic as well as hypothermic. She had a sodium of 152 and she was transferred over to [facility]. At this time the reports that she [...] Dose: 10/10/22 13:26:00 EDT, Dispense From Location: [address], 10/10/22 13:26:00 EDT Creatine Phosphokinase Electroencephalogram [...] PRN Klor-Con M2 (more content not included)... [facility] 10-09-2022 Note Reason for Consultat ion Hypernatremia History of Present Illness This is a 66-year-old female, who was initially at [facility] and then sent to [facility] ER on 10/08/22. She has a past medical history of catatonic schizophrenia, chronic kidney disease stage unknown at this time, anemia, hypothyroid, DVT hypertension, coronary artery disease, A-fib on Eliquis, osteoporosis, with frequent admissions due to worsening confusion and psychosis in a catatonic state. She was transferred from [facility] this morning after presenting to their emergency department with chief complaint of altered mental status and hypernatremia. All medical history obtained from extensive transfer paperwork and staff. Prior to sending her to the ER she was given 2 liters of NS. Review of labs on 10/04/22 with a serum sodium of 150, potassium 3.5, CO2 30, cr 0.99. At [facility] ER she had an initial blood [...] bradycardia. According to paperwork and report from [facility], with patient's underlying psychiatric disorders, baseline ranges from appropriate behavior to catatonia. Patient was admitted to [facility] on 09/28 due to worsening confusion and psychosis and in a catatonic state. In assessment dated 09/29, patient is noncommunicative does not cooperate, does not follow commands. Upon arrival to [facility] she was noted to be hypothermic with [...] data available. Assessment/Plan 1. Hypernatremia Transferred to [facility] from [facility] for hypernatremia, AMS, hypotension, hypothermia, UTI and multiple electrolyte imbalances. Sodium level on 10/04/22 was elevated at 150. Admission to [facility] her sodium was 158 at 13:25. [...] Date: 10/09/22 16:28:00 EDT, Dispense From Location: [facility], 10/09/22 16:28:00 EDT Basic Metabolic Profile Communication [...] Normal Saline F (more content not included)... [facility] 10-09-2022 Note History of Present I llness The patient is a 66-year-old female, past medical history of catatonic schizophrenia, chronic kidney disease stage unknown at this time, anemia, hypothyroid, DVT hypertension, coronary artery disease, A-fib on Eliquis, osteoporosis, with frequent admissions due to worsening confusion and psychosis in a catatonic state, transferred from [facility] after presenting to their emergency department with chief complaint of altered mental status and hypernatremia. All medical history obtained from transfer paperwork and also patient's Freddy over the phone. Patient is currently residing at [facility]. Patient arrived to [facility] emergency department at 1317 on 10/08 from [facility], with initial blood pressure of 195/91, heart [...] bradycardia. According to paperwork and report from [facility], with patient's underlying psychiatric disorders, baseline ranges from appropriate behavior to catatonia. Patient was admitted to [facility] on 09/28 due to worsening confusion and psychosis and in a catatonic state. In assessment dated 09/29, patient is noncommunicative does not cooperate, does not follow commands. Patient is seen in [facility] ICU and arouses to name but no [...] psychosis in a catatonic state, transferred from [facility] after presenting to their emergency department with chief complaint of altered mental status and hypernatremia. All medical history obtained from transfer paperwork and also patient's Freddy over the phone. Patient is currently residing at [facility]. Admitted to ICU. Assessment: Catatonic schizophrenia Hypernatremia Hypothermia Metabolic encephalopathy Bradycardia Chronic anticoagulation on Eliquis Plan: - Admit patient to ICU - Cuate harris, jimy elenaey with temp sensing - Repeat UA with culture, cath specimen - Consult nephrology, Dr. Casas - Await pharmacy medication reconciliation - EKG, currently bradycardia with HR in 40s - thyroid panel, troponin, Mg, phos, cmp, cbc, lactic - d/w Pat Bakies given psych hx and she is familiar with this patient, recently evaluated at [facility], patient also catatonic during psych eval at [facility], no consult at this time but notifying of patient's admission. - D/w patient's Freddy, . Lives in [place] and will not be able to visit [...] Activity at baseline: Ambulatory, currently resides at [facility] Anticipated Discharge Location: SNF Time spent with [...] Lactated Ringers Inj (more content not included)... [facility] 06-17-2022 Progress note Note Date/Time June 17, 2022 2:19pm [facility] [address] [place], [place] [id number] Psychiatry Progress Note Signed Patient: Marley Osborn MR#: [id number] : 1955 Acct:[id number] Age/Sex: 66 / F Adm Date: 2 Loc: 1S Room: 2L6156-1 Type : ADM IN Attending Dr: Reggie [...] <Electronically signed by Reggie Quintana MD> 06/17/22 7915 [facility] Work Phone: 1(435) 550-466801-15-2023 Consult note Author Nilo Rosales [facility] June 16, 2022 5:18pm Note Date/Time June 14, 2022 6 :43pm [facility] [address] [place] [address] Hospitalist Consult Note Signed Patient: Marley Osborn MR#: [id number] : 1955 Acct:[id number] Age/Sex: 66 / F Adm Date: 2 Loc: Room: [address] [place] [address] Type: ADM IN Attending Dr: Reggie Quintana [...] Flagyl and Terazol treatment for possible vaginitis, ICT SALES REPRESENTATIVE following ?Continue supportive care Increased creatinine?likely due to poor oral intake ?Creatinine 1.44, encouraged increased oral intake ?Monitor BMP Schizophrenia ?Continue plan of care Psychiatric team (2) Schizophrenia: Documented By: Marlene Guerra APRN 06/14/22 599 Signed By: <Electronically signed by DENIA Guerra> 06/15/22 1538 <Electronically signed by Nilo Rosales DO> 06/16/22 1718 [facility] Work Phone: 1(801) 654-377601-15-2023 Progress note Author Marlene Guerra [facility] June 16, 2022 3:07pm Note Date/Time June 16, 2022 2 :37pm [facility] [address] [place] [address] Hospitalist Progress Note Signed Patient: Marley Osborn MR#: [id number] : 1955 Acct:[id number] Age/Sex: 66 / F Adm Date: 2 Loc: Room: [address] [place] [address] Type: ADM IN Attending Dr: Reggie Quintana [...] Flagyl and Terazol treatment for possible vaginitis, ICT SALES REPRESENTATIVE following ?Continue supportive care Increased creatinine?likely due to poor oral intake ?Creatinine 1.44, encouraged increased oral intake ?Monitor BMP Schizophrenia ?Continue plan of care Psychiatric team (2) Schizophrenia: Documented By: Marlene Guerra APRN 06/16/22 4158 Signed By: <Electronically signed by DENIA Guerra> 06/16/22 7173 [facility] Work Phone: 1(904) 309-779101-15-2023 Progress note Author Marty brewster [facility] June 16, 2022 8:49am Note Date/Time June 16, 2022 8 :48am [facility] [address] [place] [address] Psychiatry Progress Note Signed Patient: Marley Osborn MR#: [id number] : 1955 Acct:[id number] Age/Sex: 66 / F Adm Date: 2 Loc: Room: [address] [place] [address] Type : ADM IN Attending Dr: Reggie Quintana MD Copies to: ~ Date of Service: 06/16/2022 Subjective Subjective Narrative: Ms. Osborn states she is doing better today. She appears less distracted compared to yesterday. She denied any AVH or feeling paranoid. I believe she had a change in mental status due to an active infection. 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 She denied SI/HI. [...] signed by Marty Mclean MD> 06/16/22 0849 [facility] Work Phone: 1(359) 255-356501-14-2023 Progress note Author Marty brewster [facility] June 15, 2022 8:48am Note Date/Time June 15, 2022 8 :45am [facility] [address] [place] [address] Psychiatry Progress Note Signed Patient: Marley Osborn MR#: [id number] : 1955 Acct:[id number] Age/Sex: 66 / F Adm Date: 2 Loc: 1S Room: [address] [place] [address] Type : ADM IN Attending Dr: Reggie [...] signed by Marty Mclean MD> 06/15/22 0848 [facility] Work Phone: 1(190) 651-777201-13-2023 Progress note Author Marty brewster [facility] June 14, 2022 3:56pm Note Date/Time June 14, 2022 3 :56pm [facility] [address] [place] [address] Psychiatry Progress Note Signed Patient: Marley Osborn MR#: [id number] : 1955 Acct:[id number] Age/Sex: 66 / F Adm Date: 2 Loc: Room: [address] [place] [address] Type : ADM IN Attending Dr: Reggie [...] signed by Marty Mclean MD> 06/14/22 1556 [facility] Work Phone: 1(527) 240-252901-12-2023 Progress note Author Marty brewster [facility] June 13, 2022 12:12pm Note Date/Time June 13, 2022 1 2:12pm [facility] [address] [place] [address] Psychiatry Progress Note Signed Patient: Marley Osborn MR#: [id number] : 1955 Acct:[id number] Age/Sex: 66 / F Adm Date: 2 Loc: Room: [address] [place] [address] Type : ADM IN Attending Dr: Reggie [...] signed by Marty Mclean MD> 06/13/22 1212 [facility] Work Phone: 1(782) 910-160501-11-2023 Progress note Author Marty brewster [facility] June 12, 2022 9:52am Note Date/Time June 12, 2022 9 :52am [facility] [address] [place] [address] Psychiatry Progress Note Signed Patient: Marley Osborn MR#: [id number] : 1955 Acct:[id number] Age/Sex: 66 / F Adm Date: 2 Loc: Room: [address] [place] [address] Type : ADM IN Attending Dr: Reggie [...] signed by Marty Mclean MD> 06/12/22 0952 [facility] Work Phone: 1(337) 622-303101-10-2023 Progress note Author Marty brewster [facility] June 11, 2022 6:33pm Note Date/Time June 11, 2022 6 :32pm [facility] [address] [place] [address] Psychiatry Progress Note Signed Patient: Marley Osborn MR#: [id number] : 1955 Acct:[id number] Age/Sex: 66 / F Adm Date: 2 Loc: Room: [address] [place] [address] Type : ADM IN Attending Dr: Reggie [...] signed by Marty Mclean MD> 06/11/22 1833 [facility] Work Phone: 1(952) 258-526101-09-2023 Progress note Author Marty brewster [facility] June 10, 2022 10:44am Note Date/Time June 10, 2022 10 :44am [facility] [address] [place] [address] Psychiatry Progress Note Signed Patient: Marley Osborn MR#: [id number] : 1955 Acct:[id number] Age/Sex: 66 / F Adm Date: 2 Loc: Room: [address] [place] [address] Type : ADM IN Attending Dr: Reggie [...] Pt denies visual hallucinations, SI, or HI. 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 MSE: Appearance: grossly normal.? [...] explained Documented By: Marty Mclean MD 3 2041 Signed By: <Electronically signed by Marty Mclean MD> 06/10/22 1044 [facility] Work Phone: 1(471) 480-136701-08-2023 Progress note Author Reggie Quintana [facility] June 09, 2022 12:26pm Note Date/Time June 09, 2022 12 :26pm [facility] [address] [place] [address] Psychiatry Progress Note Signed Patient: Marley Osborn MR#: [id number] : 1955 Acct:[id number] Age/Sex: 66 / F Adm Date: 2 Loc: 1S Room: [address] [place] [address] Type : ADM IN Attending Dr: Reggie [...] <Electronically signed by Reggie Quintana MD> 06/09/221225 [facility] Work Phone: 1(149) 658-185401-07-2023 Progress note Author Reggie Quintana [facility] June 08, 2022 12:13pm Note Date/Time June 08, 2022 12 :13pm [facility] [address] [place] [address] Psychiatry Progress Note Signed Patient: Marley Osborn MR#: [id number] : 1955 Acct:[id number] Age/Sex: 66 / F Adm Date: 2 Loc: Room: [address] [place] [address] Type : ADM IN Attending Dr: Reggie [...] By: <Electronically signed by Reggie Quintana MD> 06/08/223 [facility] Work Phone: 1(524) 396-911401-06-2023 Progress note Author Marty brewster [facility] June 07, 2022 9:18am Note Date/Time June 07, 2022 9: 17am [facility] [address] [place] [address] Psychiatry Progress Note Signed Patient: Marley Osborn MR#: [id number] : 1955 Acct:[id number] Age/Sex: 66 / F Adm Date: 2 Loc: Room: [address] [place] [address] Type : ADM IN Attending Dr: Reggie [...] signed by Marty Mclean MD> 06/07/22 0918 [facility] Work Phone: 1(585) 169-848701-05-2023 Progress note Author Marty brewster [facility] June 06, 2022 6:57am Note Date/Time June 06, 2022 6: 57am [facility] [address] [place] [address] Psychiatry Progress Note Signed Patient: Marley Osborn MR#: [id number] : 1955 Acct:[id number] Age/Sex: 66 / F Adm Date: 2 Loc: Room: [address] [place] [address] Type : ADM IN Attending Dr: Reggie [...] signed by Marty Mclean MD> 06/06/22 0657 [facility] Work Phone: 1(895) 732-125801-04-2023 Progress note Author Marty brewster [facility] June 05, 2022 9:13am Note Date/Time June 05, 2022 9: 13am [facility] [address] [place] [address] Psychiatry Progress Note Signed Patient: Marley Osborn MR#: [id number] : 1955 Acct:[id number] Age/Sex: 66 / F Adm Date: 2 Loc: 1S Room: [address] [place] [address] Type : ADM IN Attending Dr: Reggie [...] signed by Marty Mclean MD> 06/05/22 0913 [facility] Work Phone: 1(227) 503-238101-03-2023 Progress note Author Marty brewster [facility] June 04, 2022 8:29am Note Date/Time June 04, 2022 8: 27am [facility] [address] [place] [address] Psychiatry Progress Note Signed Patient: Marley Osborn MR#: [id number] : 1955 Acct:[id number] Age/Sex: 66 / F Adm Date: 2 Loc: 1S Room: [address] [place] [address] Type : ADM IN Attending Dr: Reggie [...] 2. Documented By: Marty Mclean MD 3 0826 Signed By: <Electronically signed by Marty Mclean MD> 06/04/22 0829 [facility] Work Phone: 1(317) 406-657901-02-2023 Progress note Author Marty brewster [facility] June 03, 2022 12:55pm Note Date/Time June 03, 2022 10 :30am [facility] [address] [place] [address] Psychiatry Progress Note Signed with Addenda Patient: Marley Osborn MR#: [id number] : 1955 Acct:[id number] Age/Sex: 66 / F Adm Date: 2 Loc: Room: [address] [address] Type : ADM IN Attending Dr: Reggie [...] difficulty overnight understanding directions and needed constant [id number] prompting tocomplete tasks like going to bathroom [...] State Exam (MMSE) performed with score of 12/30. After being unable to answer many of [...] signed by MD TARA Vasquez> 06/03/22 1206 [facility] Work Phone: 1(842) 562-974101-01-2023 Consult note Author Elvin Khan [facility] June 02, 2022 12:01pm Note Date/Time June 01, 2022 12:13pm [facility] [facility] [address] [place] [address] Hospitalist Consult Note Signed Patient: Marley Osborn MR#: [id number] : 1955 Acct:[id number] Age/Sex: 66 / F Adm Date: 2 Loc: Room: [address] [place] [address] Type: ADM IN Attending Dr: Reggie Quintana MD Copies to: MD Elvin Noel MD Kim E Knight, MD Paula G Smith, APRN~ HPI DATE OF CONSULTATION: 06/01/22 REQUESTING PROVIDER: Reggie Quintana Consult Narrative Reason for Consult: Anemia, hypokalemia, and confusion HPI: Mrs. Osborn is a 66-year-old female with a PMH of schizophrenia, dementia, and HTN that was transferred to [facility] for MHP from [facility] where she was hospitalized for increasing confusion and aggression. Patient seen and evaluated in 1 S., she is sitting in a table eating lunch. She is alert. She denies chest pain, shortness of breath. She denies dysuria. She denies fever, chills. She was admitted to [facility] and work-up included a CT [...] was previously treated with IV levofloxacin at [facility] for UTI. Hospitalist team has been consulted for medical management of anemia, hypokalemia, UTI, and confusion. Thank you for this consultation. Review of Systems Review of Systems Review of systems: A 10 point review of systems was obtained, negative unless noted in the HPI or below. [facility] Vacc[facility] for [facility]-19?: No Medical History [...] % (Auto) 57.4, Lymph % (Auto) 26.3, Assumption % (Auto) 11.7, Eos % (Auto) 4.1, Baso % (Auto) 0.5, Nucleat RBC Rel Count 0.3, Neut # (Auto) 2.9, Lymph # (Auto) 1.3, Assumption # (Auto) 0.6, Eos # (Auto) 0.2, Baso # (Auto) 0.0 05/31/22 21:37: Urine Color Yellow, Urine Appearance Clear, Urine pH 5.5, Ur Specific Fair[place] 1.030, Urine Protein Negative, Urine Glucose (UA) [...] UA repeated, culture pending ? Sensitivity from [facility] shows Streptococcus agalactiae ? Oral levofloxacin x3 days Confusion could be secondary to UTI or increasing dementia ? Check TSH, B12, folate HTN ? Continue to monitor Documented By: Anca Wheeler APRN 06/01/22 1211 Signed By: <Electronically signed by DENIA Wheeler> 06/01/22 1246 <Electronically signed by Elvin Khan MD> 06/02/22 1201 [facility] Work Phone: 1(369) 880-115701-01-2023 Progress note Author Marty brewster [facility] June 02, 2022 9:23am Note Date/Time June 02, 2022 9: 23am [facility] [address] [place] [address] Psychiatry Progress Note Signed Patient: Marley Osborn MR#: [id number] : 1955 Acct:[id number] Age/Sex: 66 / F Adm Date: 2 Loc: 1S Room: [address] [place] [address] Type : ADM IN Attending Dr: Reggie [...] By: <Electronically signed by Marty Mclean MD> 06/02/22922 [facility] Work Phone: 1(741) 235-785212-31-2022 Progress note Author Marty brewster [facility] June 01, 2022 8:51am Note Date/Time June 01, 2022 8:50am [facility] [address] [place] [address] Psychiatry Progress Note Signed Patient: Marley Osborn MR#: [id number] : 1955 Acct:[id number] Age/Sex: 66 / F Adm Date: 2 Loc: 1S Room: [address] [place] [address] Type : ADM IN Attending Dr: Reggie Quintana MD Copies to: ~ Date of Service: 06/01/2022 Subjective Subjective Narrative: Ms. Osborn is a 66 year old female transferred from [facility] where she was admitted 05/27 for [...] difficulty. History of schizophrenia with multiple hospitalizations. [facility] ED ruled out CVA with negative head CT and negative head/neck CTA. -Continue risperidone per -Given recent UTI with altered mental status, repeat UA today. Received IV levaquin while at [facility] beginning 05/27. Cultures pending at time of transfer. -CBC, BMP labs to monitor signs of infection, electrolytes -Fall risk; continue safety precautions -Continue to monitor mental status -Risks, benefits, and alternatives of treatment explained -Consult hospitalist for underlying medical problems. Documented By: Marty Mclean MD 2 0849 Signed By: <Electronically signed by Marty Mclean MD> 06/01/22 0851 [facility] Work Phone: 1(203) 149-249912-30-2022 History and physical note Author Reggie Quintana [facility] May 31, 2022 1:20pm Note Date/Time May 31, 2022 11:07am [facility] [address] [place] [address] Psychiatry H&P Signed Patient: Marley Osborn MR#: [id number] : 1955 Acct:[id number] Age/Sex: 66 / F Adm Date: 2 Loc: Room: [address] [place] [address] Type: ADM IN Attending Dr: Reggie Quintana MD Copies to: MD Melva Noel MD Rebecca Howard, MD, RES~ Date of Service: 05/31/2022 HPI History of Present Illness History of present illness: Ms. Osborn is a 66 year old female transferred from [facility] ICU where she was admitted 05/27 for UTI with confusion, dysphagia, and incomprehensible, slurred speech. According to nursing admit notes, she has been displaying more aggressive behavior hitting , jumping on bed, and breaking things at home. She has reportedly had hallucinations since March. Her outpatient psychiatrist increased her risperidone 2-3 months ago in response to these symptoms. Reported discharge from [facility] 3 weeks ago; I cannot see [...] difficulty. History of schizophrenia with multiple hospitalizations. [facility] ED ruled out CVA with negative head CT and negative head/neck CTA. -Restarted home risperidone, dose increased to 3mg. To increase to twice daily beginning tomorrow. -Discontinued home Abilify for concerns of polypharmacy. -Given recent UTI with altered mental status, repeat UA today. Received IV levaquin while at [facility] beginning 05/27. Cultures pending at time of transfer. -CBC, BMP labs to monitor signs of infection, electrolytes -Fall risk; continue safety precautions -Continue to monitor mental status -Risks, benefits, and alternatives of treatment explained Documented By: Reggie Quintana MD 05/31/22 1054 Signed By: <Electronically signed by Reggie Quintana MD> 05/31/22 1320 <Electronically signed by MD TARA Vasquez> 05/31/22 1229 [facility] Work Phone: Discharge summary Author Reggie Quintana [facility] June 18, 2022 2:21pm Note Date/Time June 18, 2022 2 :21pm [facility] [address] [place] [address] Discharge Summary Signed Patient: Marley Osborn MR#: [id number] : 1955 Acct:[id number] Age/Sex: 66 / F Adm Date: 2 Loc: Room: [address] [place] [address]: Reggie Quintana MD Copies to: [...] is a 66 [facility] for [facility]TI with confusion, dysphagia, andincomprehensible, slurred speech.? According to nursing admit notes, she has been displaying more aggressive behavior hitting , jumping on bed, and breaking things at home.? She has reportedly had hallucinations since March. Her outpatient psychiatrist increased her risperidone 2-3 months ago in responseto these symptoms. Reported discharge from [facility] 3 weeks ago; I cannot see [...] diet. No activity restrictions. Instructions: Schizophrenia (DC), [facility] Health DC Instructions Prescriptions: New risperidone [...] Patient Ordered By: Reggie Quintana Follow Up: [facility] [Outside] - 06/19/22 9:15 am (Case Management: Friday06/17/22 11:15am, Yusra will call you for a discharge follow up. Psychiatry: 07/02/22 at 10:30am with Dr. Lazaro) [facility] Hotline [Outside] Melva Escobedo MD [Primary Care Provider] - 06/24/22 1:30 pm (for home health referral) Documented By: Reggie Quintana MD 06/18/22 1419 Signed By: <Electronically signed by Reggie Quintana MD> 06/18/22 1421 [facility] Work Phone: Evaluation + Plan note Future Appointments Appointment Date:06/24/2023 01:40:00 PM Scheduled Provider:Keya Lucas Location:[facility] Appointment Type: Open Appointment Date:02/24/2024 11:00:00 AM Scheduled Provider: Location:[facility] Appointment Type: Medicare Wellness Subsequent Diagnostic Tests Pending * T3 Free 06/11/23 [facility] Future Appointments Appointment Date:09/29/2023 10:00:00 AM Scheduled Provider:[facility] Type:ONC Office Visit 30 (FT) Appointment Date:12/16/2023 01:40:00 PM Scheduled Provider:Keya Lucas Location:[facility] Appointment Type:FM Open Appointment Date:02/24/2024 11:00:00 AM Scheduled Provider: Location:[facility] Appointment Type:FM Medicare Wellness Subsequent Future Scheduled Tests Radiology* US Breast Unilateral Lt Complete 09/02/23 * MA Mamm Diag w/CAD if perf and 3D LT 09/02/23 [facility] Future Appointments Appointment Date:09/29/2023 10:00:00 AM Scheduled Provider:Deb Neumann MD Location:[facility]COLOGY Appointment Type:ONC Office Visit 30 (FT) Appointment Date:12/16/2023 01:40:00 PM Scheduled Provider:Keya Lucas Location:[facility] Appointment Type: Open Appointment Date:02/24/2024 11:00:00 AM Scheduled Provider: Location:[facility] Appointment Type:FM Medicare Wellness Subsequent General Surgery [facility] Evaluation + Plan note Future Appointments Appointment Date:11/11/2023 10:30:00 AM Scheduled Provider:Deb Neumann MD Location:[facility].ONCOLOGY Appointment Type:ONC Office Visit 30 (FT) Appointment Date:12/16/2023 01:40:00 PM Scheduled Provider:Keya Lucas Location:[facility] Appointment Type: Open Appointment Date:02/24/2024 11:00:00 AM Scheduled Provider: Location:[facility] Appointment Type:FM Medicare Wellness Subsequent [facility]* Diagnosis Onset Date Resolution Status AMS (altered mental status) acute Anemia acute Confusion acute HTN (hypertension) acute Hypokalemia acute Neurocognitive disorder acut e Schizophrenia acute UTI (urinary tract infection) acute Vaginitis acute [facility] Work Phone: Evaluation note* Diagnosis Altered mental status, unspecified altered mental status type- Primary Hypernatremia Hyperosmolality and/or hypernatremia Urinary tract infection without hematuria, site unspecified documented in this encounter [facility] Work Phone: Hospital course Narrative No data available for this section [facility] instructionsAmbulatory Orders* DME Home Medical Equipment Time Frame: 1 Year, Location: Determined By Patient Additional Instructions Regular diet. No activity restrictions.[facility] Work Phone: Hospital Discharge instructions No data available for this section [facility] No data available for this section [facility] Chief Complaint and Reason for Visit [...] this section No Family History Records Found No data available for this section No data available for this section No data available for this section No Family History Records FoundNo Family History [...] Melva Escobedo MD Primary Care Provider Active Applications Support Lead Relationship Specialty Start Date End Date Jamil Lundberg MD [address] [place] [address] PCP - General Psychiatry 08/25/22 Applications Support Lead Relationship Specialty Start Date End Date Jamil Lundberg MD [address] [place] [address] PCP - General Psychiatry 08/25/22 Applications Support Lead Relationship Specialty Start Date End Date Jamil Lundberg MD [address] [place] [address] PCP - General Psychiatry 08/25/22 Applications Support Lead Relationship Specialty Start Date End Date Jamil Lundberg MD [address] [place] [address] PCP - General Psychiatry 08/25/22 Applications Support Lead Relationship Specialty Start Date End Date Jamil Lundberg MD [address] [place] [address] PCP - General Psychiatry 08/25/22 Applications Support Lead Relationship Specialty Start Date End Date Jamil Lundberg MD [address] [place] [address] PCP - General Psychiatry 08/25/22 Reason for Visit (unrecogniz ed section and [...] 1700 1729 (New Bag - Provider: Hafsa Hermosillo, CHRISTIAN) 0800 (Patient Transferred to Other Facility - Provider: Johanne Conroy, CHRISTIAN) INFORMATION SOURCE (unrecogn ized section and content) DATE CREATED AUTHOR 10/10/2022 [facility] DATE CREATED AUTHOR AUTHOR'S ORGANIZ ATION 10/11/2022 [facility] DATE CREATED AUTHOR AUTHOR'S ORGANIZ ATION 10/15/2022 [facility] DATE CREATED AUTHOR AUTHOR'S ORGANIZ ATION 08/29/2023 [facility] DATE CREATED AUTHOR AUTHOR'S ORGANIZ ATION 10/27/2023 [facility] DATE CREATED AUTHOR AUTHOR'S ORGANIZ ATION 10/28/2023 [facility] DATE CREATED AUTHOR AUTHOR'S ORGANIZ ATION 11/04/[address] [facility] FOR RECORDS PERTAINING TO PATIENTS WHO ARE [...] BE BASED ON THE PRIMARY CLINICAL RECORDS. [facility], [facility]. provides no warranty or guarantee of the accuracy or completeness of information in this document.
[2023-11-05] MEDS: REGADENOSON 0.4 MG/5 ML SYRINGE 0.400000000000000022 MG IV (09:58)
== END 2023-11-05 08:09 | disposition home or self-care (01) ==
LOC: NM 08:08
PROVIDERS: PCP Nurse Practitioner; Visit Provider Internal Medicine Interventional Cardiology
DX: R94.31 Abnormal electrocardiogram [ECG] [EKG] (principal); Z01.810 Encounter for preprocedural cardiovascular examination
CPT/HCPCS: 78452; 93017; A9500; J2785

== ENCOUNTER 2023-11-06 09:26 | Outpatient (OUT) | payer MEDICARE, SELFPAY ==
--- NOTE | 2023-11-06 09:29 | XR_ITS ---
The [address] [address] Patient Name: MARLEY OSBORN MRN: [id number] date: 1955 Sex: F Assigned Patient Location: [facility] Current Patient Location: Accession/Order Number: [id number] Exam Date: 11/06/2023 09:40 Report Date: 11/07/2023 09:37 At the request of: KATYA WEAVER Procedure: XR shoulder RT min 2V PROCEDURE: XR shoulder RT min 2V HISTORY: Right Shoulder Pain, Recent Fall COMPARISON: None. FINDINGS: BONES:No fracture, acute abnormality, or significant arthropathy. SOFT TISSUES:No visible soft tissue swelling. EFFUSION:None visible. OTHER: Negative. XR/XR shoulder RT min 2V IMPRESSION: 1. No acute bone abnormality or significant degenerative joint disease. Electronically authenticated by: DENNIS GALEAS Date: 11/07/2023 09:37
== END 2023-11-06 09:27 | disposition home or self-care (01) ==
LOC: RAD 09:26
PROVIDERS: PCP Nurse Practitioner; Visit Provider Nurse Practitioner
DX: M25.511 Pain in right shoulder (principal)
CPT/HCPCS: 73030

== ENCOUNTER 2023-12-03 10:36 | Outpatient (OUT) | payer MEDICARE, SELFPAY ==
--- NOTE | 2023-12-03 11:38 | P.GSHP_ITS ---
History of Present Illness History of Present Illness Chief complaint: Right breast invasive ductal canrinoma Narrative: Patient presents for preadmission testing accompanied by her who cares for her at home. The patient has been diagnosed with breast cancer, states she has nipple inversion but no other complaints. The patient has a long history of depression and schizophrenia with catatonia. She has had many admissions for psychiatric care, And was on hospice care in the past. After a stay in the [facility] last year, she was released from hospice care and returned home in December and has been doing well ever since. She also has a history of atrial fibrillation with no intervention, she was on Eliquis, but was taken off of anticoagulants when she was admitted to the [place] due to frequent falls. She was originally scheduled for this procedure in September, but cardiac clearance was requested due to her untreated A-fib. Patient has now been cleared by cardiology and her states that she has been prescribed Eliquis but were instructed to start it after her procedure. Review of Systems ROS Narrative Negative except as stated in HPI, ten or more systems reviewed. Constitutional: No fever , chills, weakness ENT: No sore throat or epistaxis Cardiovascular: No edema or chest pain; intermittent palpitations and activity intolerance Respiratory: No cough or wheezing Musculoskeletal: No joint pain or swelling Gastrointestinal: No abdominal pain, constipation, diarrhea, or vomiting Genitourinary: No dysuria or hematuria Neurological: No numbness, tingling, weakness, or headache Psychiatric: No recent mood changes [facility] Medical History (Updated 10/08/23 @ 09:48 by Zee Crowe NP) History of admission to inpatient psychiatry department ?Z86.59 - Personal history of other mental and behavioral disorders (ICD-10) Palpitations ?R00.2 - Palpitations (ICD-10) History of blood transfusion ?Z92.89 - Personal history of other medical treatment (ICD-10) Anemia ?D64.9 - Anemia, unspecified (ICD-10) Urinary tract infection ?N39.0 - Urinary tract infection, site not specified (ICD-10) Falls ?W19.XXXA - Unspecified fall, initial encounter (ICD-10) Atrial fibrillation ?I48.91 - Unspecified atrial fibrillation (ICD-10) Uterine fibroid ?D25.9 - Leiomyoma of uterus, unspecified (ICD-10) Paranoid schizophrenia ?F20.0 - Paranoid schizophrenia (ICD-10) IBS (irritable bowel syndrome) ?K58.9 - Irritable bowel syndrome without diarrhea (ICD-10) Vitamin D deficiency ?E55.9 - Vitamin D deficiency, unspecified (ICD-10) Osteopenia ?M85.80 - Other specified disorders of bone density and structure, unspecified site (ICD-10) Sleep apnea ?G47.30 - Sleep apnea, unspecified (ICD-10) Major depression with psychotic features ?F32.3 - Major depressive disorder, single episode, severe with psychotic features (ICD-10) Memory loss ?R41.3 - Other amnesia (ICD-10) Inversion, nipple ?N64.59 - Other signs and symptoms in breast (ICD-10) Hypothyroid ?E03.9 - Hypothyroidism, unspecified (ICD-10) Hyperlipidemia ?E78.5 - Hyperlipidemia, unspecified (ICD-10) Hypertension ?I10 - Essential (primary) hypertension (ICD-10) Fatigue ?R53.83 - Other fatigue (ICD-10) Anxiety ?F41.9 - Anxiety disorder, unspecified (ICD-10) DCIS (ductal carcinoma in situ) ?D05.10 - Intraductal carcinoma in situ of unspecified breast (ICD-10) Invasive ductal carcinoma of breast ?C50.919 - Malignant neoplasm of unspecified site of unspecified female breast (ICD-10) Osteoporosis ?M81.0 - Age-related osteoporosis without current pathological fracture (ICD- 10) Depression with anxiety ?F41.8 - Other specified anxiety disorders (ICD-10) Arthritis ?M19.90 - Unspecified osteoarthritis, unspecified site (ICD-10) GERD (gastroesophageal reflux disease) ?K21.9 - Gastro-esophageal reflux disease without esophagitis (ICD-10) Arrhythmia ?I49.9 - Cardiac arrhythmia, unspecified (ICD-10) Schizophrenia ?F20.9 - Schizophrenia, unspecified (ICD-10) Surgical History (Updated 10/08/23 @ 09:10 by Zee Crowe NP) Hx of tonsillectomy ?Z90.89 - Acquired absence of other organs (ICD-10) History of cataract extraction with lens replacement H/O cataract extraction ?Z98.49 - Cataract extraction status, unspecified eye (ICD-10) H/O breast biopsy ?Z98.890 - Other specified postprocedural states (ICD-10) S/P breast biopsy, right ?Z98.890 - Other specified postprocedural states (ICD-10) H/O exploratory laparotomy ?Z98.890 - Other specified postprocedural states (ICD-10) History of adenoidectomy ?Z90.89 - Acquired absence of other organs (ICD-10) HX: benign breast biopsy ?Z98.890 - Other specified postprocedural states (ICD-10) S/P lumpectomy, left breast ?Z98.890 - Other specified postprocedural states (ICD-10) H/O colonoscopy ?Z98.890 - Other specified postprocedural states (ICD-10) Family History (Updated 10/08/23 @ 09:22 by Zee Crowe NP) Other ALS (amyotrophic lateral sclerosis) Dementia Family history of breast cancer Family history of myocardial infarction Social History (Updated 10/08/23 @ 09:16 by Zee Crowe NP) Within the past year, how often did you have a drink containing alcohol: monthly or less Smoking status: Never smoker Non-prescribed substance use: denies use Highest level of school completed/degree received: high school graduate Meds Home Medications and Allergies Home Medications ?Medication ?Instructions ?Recorded ?Confirmed ?Type alendronate 70 mg tablet 70 mg PO QWEEK 05/05/23 10/08/23 History haloperidol 5 mg tablet 5 mg PO BID 05/05/23 10/08/23 History levothyroxine 50 mcg capsule 50 mcg PO DAILY 05/05/23 10/08/23 History quetiapine 25 mg tablet (Seroquel) 50 mg PO .every evening 05/05/23 10/08/23 History ergocalciferol (vitamin D2) 1,250 1,250 mcg PO QWEEK 07/28/23 10/08/23 History mcg (50,000 unit) capsule (Vitamin D2) Allergies Allergy/AdvReac Type Severity Reaction Status Date / Time amoxicillin Allergy Hives Verified 12/03/23 11:20 cephalexin [From Keflex] Allergy Hives Verified 12/03/23 11:20 Sulfa (Sulfonamide Allergy Hives Verified 12/03/23 11:20 Antibiotics) Exam Narrative Exam Narrative: Constitutional: Awake, alert, comfortable, nontoxic, slow to respond but answers appropriately, interactive, vital signs as charted Head: Normocephalic, atraumatic Neck: Supple, normal appearance, normal range of motion, no meningeal signs, no lymphadenopathy Respiratory: No respiratory distress, breath sounds clear Cardiovascular: Regular rate and rhythm, strong and regular heart tones Musculoskeletal: Shuffling gait, no swelling or edema Skin: No rashes or induration, no lesions, only visible skin inspected Neuro: No neurological deficits, normal sensation Psychiatric: Oriented ?3, flat affect Assessment and Plan Assessment and Plan (1) DCIS (ductal carcinoma in situ): (2) Invasive ductal carcinoma of breast: Plan Right breast needle localization lumpectomy with sentinel node biopsy scheduled with Dr. Dunn 12/17/2023.
[2023-12-03 12:04] LABS: INR 0.99; Partial Thromboplastin Time 31.6 sec (22.3-36.2); Prothrombin Time 10.5 sec (9.0-11.6)
[2023-12-03 12:05] LABS: Anion Gap 12.9; BUN Creatinine Ratio 12.4; Calcium 9.5 mg/dL (8.5-10.1); Carbon Dioxide 27.5 mmol/L (21.0-32.0); Chloride 104 mmol/L (98-107); Estimated GFR (African America 53 (>=60); Estimated GFR (Non-African Ame 44 (>=60); Glucose 86 mg/dL (74-106); Potassium 4.4 mmol/L (3.5-5.1); Sodium 140 mmol/L (136-145)
[2023-12-03 12:31] LABS: Basophils Absolute Auto 0.1 10^3/uL (0.0-0.1); Basophils Percent Auto 0.9 % (0.2-2.0); Eosinophils Absolute Auto 0.1 10^3/uL (0.0-0.7); Eosinophils Percent Auto 1.9 % (0.9-7.0); Hematocrit 35.5 % (36.0-48.0); Hemoglobin 11.8 g/dL (12.0-16.0); Immature Granulocytes Abs Auto 0.02 10^3/uL (0.00-0.03); Immature Granulocytes Pct Auto 0.4 % (0.0-0.5); Lymphocytes Absolute Auto 1.3 10^3/uL (1.2-3.8); Lymphocytes Percent Auto 23.7 % (20.5-60.0); Mean Corpuscular HGB Conc 33.2 g/dL (29.9-35.2); Mean Corpuscular Volume 93.2 fL (81.0-99.0); Mean Platelet Volume 9.9 fL (9.5-13.5); Monocytes Absolute Auto 0.4 10^3/uL (0.3-0.8); Monocytes Percent Auto 6.4 % (1.7-12.0); Neutrophils Absolute Auto 3.8 10^3/uL (1.4-6.5); Neutrophils Percent Auto 66.7 % (43.0-75.0); Platelet Count 242 10^3/uL (150-450); Red Blood Count 3.81 10^6/uL (4.20-5.40); Red Cell Distribution Width 12.9 % (11.0-15.0); White Blood Count 5.7 10^3/uL (4.0-11.0)
== END 2023-12-03 10:37 | disposition home or self-care (01) ==
LOC: PST 10:37
PROVIDERS: PCP Nurse Practitioner; Visit Provider Surgery
DX: Z01.812 Encounter for preprocedural laboratory examination (principal); Z01.818 Encounter for other preprocedural examination; C50.311 Malignant neoplasm of lower-inner quadrant of right female breast
CPT/HCPCS: 80048; 85025; 85610; 85730; G0463

== ENCOUNTER 2023-12-17 06:49 | Day surgery (SDC) | payer MEDICARE, SELFPAY ==
[2023-10-08 09:46] VITALS: BP 118/78; PULSE 70; TEMP 36.2; O2SAT 97; BMI 33.6
[2023-12-03 11:34] VITALS: BP 110/60; PULSE 60; TEMP 36.2; O2SAT 97; BMI 33.0
[2023-12-17] VITALS (8 sets, daily range): BP systolic 108–148; BP diastolic 69–93; PULSE 80–91; TEMP 36.1–36.4; O2SAT 93–97; BMI 32.6
--- NOTE | 2023-12-17 | NM_ITS ---
The [address] [address] Patient Name: MARLEY OSBORN MRN: [id number] date: 1955 Sex: F Assigned Patient Location: SURGOUT Current Patient Location: Accession/Order Number: [id number] Exam Date: 12/17/2023 08:25 Report Date: 12/17/2023 11:51 At the request of: GABBY GARCIA Procedure: NM sentinel node w imaging EXAM: NM sentinel node w imaging HISTORY: INVASIVE DUCTAL CARCINOMA RT BREAST COMPARISON: Ultrasound breast for 924, mammography 07/28/2023, 05/05/2023 TECHNIQUE/FINDINGS: 0.89 mCi of technetium 99 M filtered sulfur colloid was injected in 4 equal all clots around the small mass and biopsy marker clip seen via ultrasound. NM/NM sentinel node w imaging IMPRESSION: 1. Successful nuclear medicine injection within right breast for sentinel node localization. Electronically authenticated by: DENNIS GALEAS Date: 12/17/2023 11:51
--- NOTE | 2023-12-17 | OP_ITS ---
OPERATION DATE: 12/17/2023 PREOPERATIVE DIAGNOSIS: Right breast cancer. POSTOPERATIVE DIAGNOSIS: Right breast cancer. POSTOPERATIVE DIAGNOSIS: Right breast lumpectomy with sentinel lymph node biopsy. SURGEON: Milo Dunn M.D. ANESTHESIA: General with laryngeal mask airway, as well as local with 0.5% Marcaine plain. ESTIMATED BLOOD LOSS: Less than 10 mL. INDICATIONS AND CONSENT: Patient is a 68-year-old female, recently diagnosed with invasive right breast cancer, a small lesion at the 3 o?clock position of the right breast. Indications, risks, benefits, alternatives of proceeding with needle localized lumpectomy and sentinel lymph node biopsy were explained extensively to the patient, including risks of bleeding, infection, scarring, pain, recurrence, need for further breast or axillary surgery, anesthetic complications. All of her questions were answered. Informed consent was obtained. PROCEDURE: Patient was brought to the operating room, placed in the supine position. She had previously undergone sentinel node injection and needle localization down in Radiology. She was prepped and draped in the usual sterile fashion. Curvilinear incision was made at the right axilla, below the area of hair bearing skin, carried down through subcutaneous tissue using electrocautery as well as sharp dissection. The clavipectoral fascia was incised. A probe was used to probe the axilla. There were very slight areas of increased activity in the subpectoral, medial portion of the axilla. Underneath this area, a lymph node was isolated from along the chest wall. It was freed up using a harmonic scalpel to divide the lymphatics as well as small vessels. Ex vivo counts, however, were not increased. Additional nodes inferior and medial to this one. This also appeared to have some transient increased activity with the probe, was removed in identical fashion, but this had no to very little activity ex vivo. The blue dye was not injected due to possible interactions with the patient?s medication. Several of the large nodes were noted within the deep mid axilla. These were dissected free as well using the harmonic scalpel to divide the vessels and lymphatics. They did not have increased activity ex vivo. The wound was palpated. There were no other areas of increased enlarged lymph nodes or inflammation. The wound was irrigated. There was good hemostasis. The subcutaneous tissue was re-approximated with interrupted 3-0 Monocryl suture. Skin was then closed with a running 4-0 subcuticular Monocryl suture. Attention was then turned to the breast where a curvilinear incision was made just medial and inferior to the wire. It was carried down through the skin using electrocautery. Superior and inferior skin flaps were raised. The wire was then brought out into the septal part of the incision. The superior flap was the carried down to the pectoralis fascia. The wire was widely excised, posterior down to the pectoralis fascia. The specimen was marked with a short stitch superiorly, a long stitch laterally and sent off to Radiology where the clip was noted to be within the specimen. The wound was irrigated. Hemostasis was achieved. The subcutaneous tissue was re-approximated with interrupted 3-0 Monocryl suture. The skin was closed with a running 4-0 subcuticular Monocryl suture. Skin glue was applied to both incisions, as well as a sterile pressure dressing and the patient?s bra. Sponge and needle counts were correct x2 per nursing personnel. Patient tolerated procedure well, was sent to recovery room in good condition. CC: BRIAN Mcginnis
--- OUTSIDE RECORDS SUMMARY | 2023-12-17 06:53 | XMS_ITS | CCD ---
Author Organization [facility] Care Team Providers Care Production Clerk Name Role Phone MD Melva Escobedo Primary Care Provider [phone] MD Reggie Quintana Admit Provider MD Reggie Quintana Attending Provider MD Judith Cordoba Other Provider [phone] 1 Jamil Lundberg MD Primary Care Provider ESCOBEDO ., DR MELVA Laboy Admitting Unavailable [...] Admitting Unavailable HOY .DR SOLORZANO Consulting Unavailable ZINILESH, DR DENNIS Soto Consulting Unavailable PAY ., DR FORD Consulting Unavailable GRECHNY .SETH Consulting UnavailDENNIS Kate Consulting Unavailable ALYX GUZMAN Consulting Unavailable MICHELE LOZANO Consulting Unavailable RUCHI TRIMBLE Consulting Unavailable SORAYA ., WILLIAMS Consulting Unavailable ESCOBEDO ., DR MELVA Laboy Primary Care Unavailable SHAIKH Ingris ISABEL Attending Unavailable SHAIKH Ingris ISABEL Admitting Unavailable FRANSISCO DE LA CRUZ Consulting Unavailable SHAIKH Ingris ISABEL Consulting Unavailable GAUTAM, THANIA Consulting Unavailable OWOYZULEYMA, WILLY Consulting Unavailable TATUM WHEAT Attending Unavailable [...] Unavailable HAY ., DR TENORIO Consulting Unavailable SHAIKH Ingris ISABEL Consulting Unavailable OAKESJEFF BRASWELL Consulting Unavailable ESCOBEDO ., DR MELVA Laboy Consulting Unavailable ESCOBEDO ., DR MELVA Laboy Attending Unavailable ESCOBEDO ., DR MELVA Laboy Primary Care Unavailable ESCOBEDO ., DR MELVA Laboy Admitting Unavailable COLUMBIA, DR KAYLEY Snow Consulting Unavailable ESCOBEDO ., [...] ESCOBEDO ., DR MELVA Laboy Admitting Unavailable CHIVO, DORA Attending Unavailable DORA LAZARO Admitting Unavailable ESCOBEDO ., DR MELVA Laboy Primary Care Unavailable DORA LAZARO Consulting Unavailable ESCOBEDO ., DR MELVA Laboy Primary Care Unavailable MICHELE LOZANO Consulting Unavailable MICHELE LOZANO Attending Unavailable MICHELE [...] Unavailable Ahmed, Irfan Primary Care Unavailable Frank CASER-DENTAL SURGERY DOCTOR, Malissa Soto Consulting Un available Alexandra ROPER, Louie Freeman Admitting Unavailable Alexandra ROPER, Louie Freeman Attending Unavailable Luz CASER-DENTAL SURGERY DOCTOR, Cintia Rincon Consulting Unavailable Shay CASER-DENTAL SURGERY DOCTOR, Rachel Delcid Consulting Margoth vailable LaMgracy, Cody Francis Consulting Unavailab shira Casas MD, Kei Veloz Consulting Unavailabl e Ahmed, Irfan Consulting Unavailable Ezequiel, Keya Turner Primary Care Physician JOSEPH DOMINGUEZ Attending Unavailable ALBERTO, JOSEPH Martinez Attending Unavailable FABBY HERMAN Attending Unavailable West, Kayley Snow Attending Unavailable West, Kayley Snow Admitting Unavailable VinayMarty lyn Attending Unavailab le Marty Mclean Admitting Unavailab Melva Nunn Primary Care Unavailable JENNIFER CASANOVA Attending Unavailable Ezequiel, Keya Turner Attending Unavailable Ezequiel, Keya L Attending Unavailable Ezequiel, Keya L Attending Unavailable NILL, Milo Soto Attending Unavailable Al-Marrawi, Deb Lopez Attending Unavailabl e Al-Marrawi, Deb Lopez Attending Unavailabl e Ezequiel, Keya Turner Referring Unavailable Ezequiel, Keya Turner Admitting Unavailable Ezequiel, Keya Turner Attending Unavailable NILL, Milo Soto Attending Unavailable NILL, Milo Soto Attending Unavailable Ezequiel, Keya Turner Attending Unavailable Ezequiel, Keya Turner Attending Unavailable Ezequiel, Keya L Attending Unavailable Ezequiel, Keya L Attending Unavailable Ezequiel, Keya L Attending Unavailable Ezequiel, Keya L Attending Unavailable Allergies Allergy Classification Reported Allergen(s) Allergy Type Date of Onset Reaction(s) Facility Cephalosporins (antibiotic) (1 source) Cephalexin; Translations: [Keflex] Drug Allergy [facility] Repository Penicillins (antibiotic) (2 sources) Amoxicillin; Translations: [amoxicillin] Drug Allergy [facility] Repository Sulfonamides (antibiotic) (1 source) Sulfamethoxazole ; Translations: [sulfamethoxazol e] Drug Allergy [facility] Repository (5 sources) Amoxicillin; Translations: [Amoxicillin] Drug Allergy 5 Eruption of skin (disorder) [facility] (9 sources) Cephalexin; Translations: [cephalexin] Drug Allergy 2 Rash [facility] (3 sources) Lactose; Translations: [lactose] Drug Allergy 5 Diarrhea [facility] (2 sources) Sulfonamides (Antibiotic); Translations: [Sulfa (Sulfonamide Antibiotics)] Allergy to substance 2 Hives [facility] (7 sources) Penicillins; Translations: [penicillins] Propensity to adverse reactions to drug 3 Rash [employer]! [facility] Phone: (7 sources) Sulfamethoxazole ; Translations: [sulfamethoxazol e] Drug Allergy 3 Rash [employer] Phone: (2 sources) Cephalexin; Translations: [Keflex] Drug Allergy 5 [facility] Repository (1 source) Sulfonamides (Antibiotic) Drug allergy (disorder) 5 [facility] Repository (1 source) Sulfonamides (Antibiotic); Translations: [sulfa drugs] Propensity to adverse reactions to drug (disorder) [facility] Repository Medications Current Medications Medication Drug Class(es) Dates Sig (Normalized) Sig (Original) Acetaminophen (7 sources) Start: 02-21-2023 acetaminophen 500 mg, q6hr, PRN as needed for pain, Refills(s) 0 Start Date: 02/21/23 Status: Ordered take 1 tablet by hubert th every six hours as needed for pain acetaminophen (TYLENOL) 500 MG tablet Ta ke 1 tablet by mouth every 6 hours as needed for Pain 0 Active alendronic acid 70 mg oral tablet (5 sources) Bisphosphonate Start: 04-14-2023 Fosamax 70 mg Tab 70 mg = 1 tab(s), Oral, q7day, # 12 tab(s), Refills(s) 3, Pharmacy: [facility]/pharmacy #[id number], 153, cm, 02/21/23 11:33:00 EDT, Height/Length [...] 2022 12:00am haloperidol 5 mg oral tablet (7 sources) Typical Antipsychotic Start: 08-06-2023 haloperidol 5 mg Tab 5 mg = 1 tab(s), Oral, BID, changed to BID 06/11/23, # 180 tab(s), Refills(s) 1, [id number], 152, cm, 08/05/23 13:39:00 EST, Height/Length Dosing, 77.1, kg, 08/05/23 13:39:00 EST, Weight Dosing Start Date: 08/06/23 Status: Ordered Start: 02-04-2023 haloperidol 5 mg Tab 5 mg = 1 tab(s), Oral, BID, changed to BID 06/11/23, # 270 tab(s), Refills(s) 1, [id number], 154.9, cm, 02/04/23 10:18:00 EDT, Height/Length Dosing, 75, kg, 02/04/23 10:18:00 EDT, Weight Dosing Start Date: 02/04/23 Status: Ordered haloperidol lact ate (HALDOL) 5 MG/ML injection Inject into the muscle every 6 hours as needed for Agitation 0 Active Handicap Placard (5 sources) Start: 02-21-2023 Handicap Placard Handicap Placard, See Instructions, 1 EA, 0, 5 years, Supply Start Date: 02/21/23 Status: Ordered hydroCHLOROthiazide 12.5 mg oral tablet (2 sources) Thiazide Diuretic take 0.5 tablet by mouth once daily as needed hydroCHLOROthiazide (HYDRODIURIL) 12.5 MG tablet Take 0.5 tablets by mouth daily as needed 0 Active levothyroxine sodium 0.05 mg oral tablet (7 sources) l-Thyroxine Start: 12-05-2023 take 1 tablet by mouth once daily levothyroxine 50 mcg (0.05 mg) Tab See Instructions, TAKE 1 TABLET BY MOUTH EVERY DAY, # 90 tab(s), Refills(s) 1, Pharmacy: [id number], 152, cm, 11/04/23 14:36:00 EDT, Height/Length Dosing, 79, kg, 11/04/23 14:36:00 EDT, Weight Dosing Start Date: 12/05/23 Status: Ordered Start: 08-05-2023 take 1 tablet by hubert once daily levothyroxine 50 mcg (0.05 mg) Tab 50 mcg = 1 tab(s), Oral, Daily, # 90 tab(s), Refills(s) 1, [id number], 152, cm, 06/24/23 13:38:00 EST, Height/Length Dosing, 77.3, kg, 06/24/23 13:38:00 EST, Weight Dosing Start Date: 08/05/23 Status: Ordered Start: 02-04-2023 take 1 tablet by [facility] once daily levothyroxine 50 mcg (0.05 mg) Tab 50 mcg = 1 tab(s), Oral, Daily, # 90 tab(s), Refills(s) 1, [id number], 154.9, cm, 02/04/23 10:18:00 EDT, Height/Length Dosing, 75, kg, 02/04/23 10:18:00 EDT, Weight Dosing Start Date: 02/04/23 Status: Ordered take 0.5 tablet by [facility] once daily levothyroxine (SYNTHROID) 100 MCG tablet Take 0.5 tablets by mouth Daily 0 Active lidocaine 0.05 mg/mg medicated patch (1 source) Antiarrhythmic, Amide Local Anesthetic Start: 11-04-2023 lidocaine Top 5% film Patch 1 patch(es), Topical, Daily, 30 patch(es), Refill(s) 1, apply 12 hours on and 12 hours off daily, [id number] 152, cm, 11/04/23 14:36:00 EDT, Height/Length Dosing, 79, kg, 11/04/23 14:36:00 EDT, Weight Dosing Start Date: 11/04/23 Status: Ordered LORazepam 1 mg oral tablet (4 sources) [...] 0 Active QUEtiapine 50 mg oral tablet (5 sources) Atypical Antipsychotic Start: 11-18-2023 take 1 tablet by mouth once daily quetiapine 50 mg oral tablet 50 mg = 1 tab(s), Oral, Daily, # 90 tab(s), Refills(s) 1, Pharmacy: [facility]/pharmacy #[id number], 152, cm, 11/04/23 14:36:00 EDT, Height/Length Dosing, 79, kg, 11/04/23 14:36:00 EDT, Weight Dosing Start Date: 11/18/23 Status: Ordered Start: 08-04-2023 take 1 tablet by hubert th once daily quetiapine 50 mg oral tablet 50 mg = 1 tab(s), Oral, Daily, # 90 tab(s), Refills(s) 1, Pharmacy: [facility]/pharmacy #[id number], 152, cm, 06/24/23 13:38:00 EST, Height/Length Dosing, 77.3, kg, 06/24/23 13:38:00 EST, Weight Dosing Start Date: 08/04/23 Status: Ordered Start: 02-04-2023 take 1 tablet by hubert th once daily quetiapine 50 mg oral tablet 50 mg = 1 tab(s), Oral, Daily, # 90 tab(s), Refills(s) 1, Pharmacy: [facility]/pharmacy #[id number], 154.9, cm, 02/04/23 10:18:00 EDT, Height/Length [...] muscle every 14 days 0 Active sennosides, custodial 8.6 mg oral tablet (5 sources) Start: 06-11-2023 take 1 tablet by mouth twice daily senna 8.6 mg Tab 8.6 mg = 1 tab(s), Oral, BID, # 60 tab(s), Refills(s) 5, Pharmacy: [facility]/pharmacy #[id number], 153, cm, 02/21/23 11:33:00 EDT, Height/Length [...] 50,000 intl units (1.25 mg) oral capsule (4 sources) Start: 10-28-2023 take 1 capsule by mouth every week Vitamin D 50,000 intl units (1.25 mg) oral capsule 50,000 International_Unit = 1 cap(s), Oral, qWeek, # 4 cap(s), Refills(s) 3, Pharmacy: [facility]/pharmacy #[id number], 152, cm, 10/06/23 14:29:00 EDT, Height/Length Dosing, 78.9, kg, 10/06/23 14:29:00 EDT, Weight Dosing Start Date: 10/28/23 Status: Ordered Start: 10-03-2023 take 1 capsule by [facility] every week Vitamin D 50,000 intl units (1.25 mg) oral capsule 50,000 International_Unit = 1 cap(s), Oral, qWeek, # 4 cap(s), Refills(s) 3, Pharmacy: [facility]/pharmacy #[id number], 152, cm, 09/03/23 14:19:00 EDT, Height/Length Dosing, 78.3, kg, 09/03/23 14:19:00 EDT, Weight Dosing Start Date: 10/03/23 Status: Ordered Start: 06-24-2023 take 1 capsule by [facility] every week Vitamin D 50,000 intl units (1.25 mg) oral capsule 50,000 International_Unit = 1 cap(s), Oral, qWeek, # 4 cap(s), Refills(s) 3, Pharmacy: [facility]/pharmacy #[id number], 152, cm, 06/24/23 13:38:00 EST, Height/Length Dosing, 77.3, kg, 06/24/23 13:38:00 EST, Weight Dosing Start Date: 06/24/23 Status: Ordered Problems Active Problems Problem Classification Problem Date Documented Da te Episodic/Chronic Anxiety disorders (6 sources) Anxiety disorder, unspecified; Translations: [Anxiety disorder] Onset: 10-09-2022 08-13-2022 Chronic Bacterial infection; unspecified site (2 sources) Klebsiella pneumoniae [K. pneumoniae] as the cause of diseases classified elsewhere; Translations: [Unspecified Escherichia coli [E. coli] as the cause of diseases classified elsewhere] Onset: 09-12-2022 Episodic Cancer of breast (8 sources) Malignant neoplasm of unspecified site of [...] mouth 06-24-2023 Episodic Disorders of lipid metabolism (6 sources) Hyperlipidemia, unspecified; Translations: [Hyperlipidemia] Onset: 04-29-2022 08-13-2022 Chronic Essential hypertension (12 sources) Hypertensive disorder; Translations: [Essential (primary) hypertension] [...] [Acute vaginitis] 06-15-2022 Episodic Malaise and fatigue (10 sources) Other fatigue; Translations: [Fatigue] Onset: 08-13-2022 Episodic Menopausal disorders (1 source) Hormone replacement therapy; Translations: [HORMONE REPLACEMENT THERAPY] Onset: 10-09-2022 Episodic Mood disorders (10 sources) Depressive disorder; Translations: [Major depression with psychotic features] 08-09-2022 Chronic Mood disorders (1 source) Mood disorders; Translations: [DEPRESSION UNSPECIFIED] Onset: 10-09-2022 Nonmalignant breast conditions (5 sources) Breast signs and symptoms; Translations: [Other signs and symptoms in breast] Onset: 09-01-2023 Episodic Nutritional deficiencies (4 sources) Vitamin D deficiency 06-24-2023 Chronic Other aftercare (5 sources) Other group home (current) drug therapy; Translations: [OTH WOUND CARE COORDINATOR CURRENT DRUG THERAPY] Onset: 11-29-2021 Episodic Other bone disease and musculoskeletal deformities (5 sources) Osteopenia 04-14-2023 Episodic Other bone disease and musculoskeletal deformities (1 source) Disorder of bone; Translations: [Other specified disorders of bone density and structure, unspecified site] Onset: 10-06-2023 Episodic Other connective tissue disease (2 sources) Spasm 08-13-2022 Episodic Other endocrine disorders (1 source) Hypoglycemia, unspecified; Translations: [HYPOGLYCEMIA UNSPECIFIED] Onset: 06-10-2022 Chronic Other gastrointestinal disorders (5 sources) Irritable bowel syndrome Onset: 11-30-1988 08-09-2022 Chronic Other injuries and conditions due to external causes (1 source) History of fall 11-04-2023 Episodic Other lower respiratory disease (1 source) Gasping [...] Chronic Other nutritional; endocrine; and metabolic disorders (3 sources) Body mass index 30+ - obesity 09-03-2023 Chronic Other nutritional; endocrine; and metabolic disorders (3 sources) Obesity 09-03-2023 Chronic Other nutritional; endocrine; and metabolic disorders (1 source) Body mass index (BMI) 26.0-26.9, adult; Translations: [BODY MASS INDEX BMI 26.0-26.9 ADULT] Onset: 10-09-2022 Episodic Residual codes; unclassified (5 sources) Obstructive sleep apnea syndrome 08-13-2022 Chronic [...] TEMP] Onset: 09-12-2022 Episodic Residual codes; unclassified (5 sources) Amnesia 08-13-2022 Episodic Schizophrenia and other psychotic disorders (14 sources) Schizophrenia; Translations: [Schizophrenia, unspecified] Onset: 06-02-2012 05-31-2022 Chronic Thyroid disorders (13 sources) Hypothyroidism, unspecified; Translations: [Hypothyroidism] Onset: 08-27-2022 Chronic Unclassified (4 sources) CONTACT W/AND (SUSP) EXPOS COVID-19; Translations: [CONTACT W/AND (SUSP) EXPOS COVID-19] Onset: 05-11-2022 Unclassified (1 source) CHRN KIDNEY DISEASE STG 3 UNSP; Translations: [CHRN KIDNEY DISEASE STG 3 UNSP] Onset: 06-10-2022 Unclassified (1 source) Pain of right shoulder region 11-04-2023 Urinary tract infections (12 sources) Urinary tract [...] W/AND (SUSP) EXPOS COVID-19] Onset: 05-06-2022 Unclassified (10 sources) Patient encounter status 06-11-2023 Results Test Name Value Interpretation Reference Range Facil ity Ambulatory Visit Summaryon 0 12-16-2023 Ambulatory Visit Summary Ambulatory Visit Summary MARLEY OSBORN :1955 Visit Date:12/16/2023 Ambulatory Visit Instructions Your Diagnosis Hypothyroid Invasive ductal carcinoma of right breast Non-smoker BMI 33.0-33.9,adult Your Care Team Attending Physician - Keya Lucas Primary Care Physician - Keya Lucas This Is Your Medications List Misc Prescription (Handicap Placard) acetaminophen ergocalciferol (Vitamin D 50,000 intl units (1.25 mg) oral capsule) haloperidol (haloperidol 5 mg Tab) levothyroxine (levothyroxine 50 mcg (0.05 mg) Tab) lidocaine topical (lidocaine Top 5% film Patch) quetiapine (quetiapine 50 mg oral tablet) senna (senna 8.6 mg Tab) Procedures Performed Biopsy of breast (06/2023), Biopsy of breast (05/2023), Cataract (06/02/2019), Colonoscopy (01/2019), CEIOL - Cataract extraction and insertion of intraocular lens (04/28/2017), Biopsy of breast, Tonsillectomy and adenoidectomy. Discharge Vitals Temperature (Temporal Artery) 36.3 ?C Heart Rate (Peripheral) 62 Respiratory Rate 18 Blood Pressure 116/78 Height 152.0 cm Height 60 in Weight 76.6 kg Weight 168.52 lb BMI 33.15 What to do next Scheduled Follow-Up Appointments Friday 1:00 PM EDT With: Milo GARCIA MD Where: [facility] General Surgery [place] Invalid Interpretation Code [address] [place] [address]- \.br\ Friday 2:40 PM EST \.br\ With: Keya Lucas\.br\ Where: [facility] Family Medicine [facility] Family Medicine Office/Clini c Noteon 12-16-2023 Family Medicine Office/Clinic Note Family Medicine Office/Clinic Note [facility] Staff Marley is a 68 year female presenting with 6 month follow up SHAISTA on 11/04/23 .. SHAISTA X-rays order @ [facility] for his right shoulder pain and sent Lidocin patches to pharmacy states this came back NEG Dr. Lazaro is the credit cashier she started seeing for the last couple months. She goes every 2 months... She gets refills from this doctor History of Present Illness pt presents today for 6 month follow up. Review of Systems PHQ Score Initial Depression Screen Score: 0 SCORE Physical Exam Vitals & Measurements T: 36.3 ?C(Temporal Artery) HR: 62(Peripheral) RR: 18 BP: 116/78 SpO2: 62% HT: 60 in HT: 152.0 cm WT: 76.6 kg WT: 168.52 lb BMI: 33.15 General: alert, no acute distress ENMT: oral mucosa moist, no pharyngeal erythema or exudate Cardiovascular: regular rate and rhythm, normal peripheral perfusion Respiratory: Lungs CTA, respirations non labored Extremities: no deformity, no trauma Neurological: oriented x 4, LOC appropriate for age, CN II-XII intact, motor strength equal & normal bilaterally, speech normal Assessment/Plan 1. Hypothyroid (E03.9: Hypothyroidism, unspecified) does not need refills at this time TSH was normal. RTC in June for wellness visit with labs 2. Invasive ductal carcinoma of right breast (C50.311: Malignant neoplasm of lower-inner quadrant of right female breast) pt is scheduled for lumpectomy tomorrow. then will see oncology January 04 3. Non-smoker (Z78.9: Other specified health status) continue not smoking 4. BMI 33.0-33.9,adult (Z68.33: Body mass index [BMI] 33.0-33.9, adult) BMI education given Orders: alendronate, 70 mg = 1 tab(s), Oral, q7day, # 12 tab(s), Refills(s) 3, Pharmacy: [facility] #[id number], 153, cm, 02/21/23 11:33:00 EDT, Height/Length Dosing, 74.6, kg, 02/21/23 11:33:00 EDT, Weight Dosing senna, 8.6 mg = 1 tab(s), Oral, Once a day (at bedtime), PRN as needed for constipation, # 25 tab(s), Refills(s) 5, Pharmacy: [facility] #[id number], 153, cm, 02/21/23 11:33:00 EDT, Height/Length Dosing, 74.6, kg, 02/21/23 11:33:00 EDT, Weight Dosing Follow-up No qualifying data available Problem List/Past Medical History Ongoing Anxiety disorder BMI 33.0-33.9,adult Fatigue History of recent fall HTN (hypertension) Hyperlipidemia, unspecified Hypothyroid 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 Medications acetaminophen, 500 mg, q6hr, PRN haloperidol 5 mg Tab, 5 mg= 1 tab(s), Oral, BID, 1 refills Handicap Placard, See Instructions levothyroxine 50 mcg (0.05 mg) Tab, See Instructions lidocaine Top 5% film Patch, 1 patch(es), Topical, Daily, 1 refills quetiapine 50 mg oral tablet, 50 mg= 1 tab(s), Oral, Daily, 1 refills senna 8.6 mg Tab, 8.6 mg= 1 tab(s), Oral, Once a day (at bedtime), PRN, 5 refills Vitamin D 50,000 intl units (1.25 mg) oral capsule, 58142 International_Unit = 1 cap(s), Oral, qWeek, 3 refills Allergies Keflex (rash) penicillins (rash) sulfamethoxazole (rash) Social History Alcohol - Denies Alcohol Use, 02/21/2023 Household alcohol concerns: No., 02/21/2023 Substance Abuse - Denies Substance Abuse, 09/03/2023 Tobacco - Denies Tobacco Use, 02/21/2023 Never (less than 100 in lifetime) Tobacco Use:. Never Smokeless Tobacco Use:. Cigarettes, Household tobacco concerns: No., 12/16/2023 Family History Dementia: Brother and Brother.Negative: Sister. Omayra Gehrig's disease: Sister. Immunizations Vaccine Date Status Comments influenza virus vaccine, inactivated 03/05/2023 Recorded SARS-CoV-2 (COVID-19) [id number] 03/09/2022 Recorded 2022-08-09: [id number] influenza virus vaccine, inactivated 02/14/2022 Recorded SARS-CoV-2 (COVID-19) mRNA-1273 vaccine 03/29/2021 Recorded 2022-08-09: [id number] influenza virus vaccine, inactivated 01/27/2021 Recorded SARS-CoV-2 (COVID-19) mRNA-1273 vaccine 08/23/2020 Recorded SARS-CoV-2 (COVID-19) mRNA-1273 vaccine 07/27/2020 Recorded pneumococcal 13-valent vaccine 02/17/2020 Recorded influenza virus vaccine, inactivated 02/20/2019 Recorded influenza virus vaccine, inactivated 03/31/2018 Recorded Normal [facility] Comment on above: Result Comment: Elec tronically Signed By: Keya Lucas\.br\Date and Time Signed: 12/16/23 14:08 EDT Ambulatory Visit Summaryon 0 12-10-2023 Ambulatory Visit Summary Ambulatory Visit Summary MARLEY OSBORN :1955 Visit Date:12/10/2023 Ambulatory Visit Instructions Your Care Team Attending Physician - RADHA ROPER, Milo Soto Primary Care Physician - Keya Lucas This Is Your Medications List Misc Prescription (Handicap Placard) acetaminophen alendronate (Fosamax 70 mg Tab) ergocalciferol (Vitamin D 50,000 intl units (1.25 mg) oral capsule) haloperidol (haloperidol 5 mg Tab) levothyroxine (levothyroxine 50 mcg (0.05 mg) Tab) lidocaine topical (lidocaine Top 5% film Patch) quetiapine (quetiapine 50 mg oral tablet) senna (senna 8.6 mg Tab) Procedures Performed Biopsy of breast (06/2023), Biopsy of breast (05/2023), Cataract (06/02/2019), Colonoscopy (01/2019), CEIOL - Cataract extraction and insertion of intraocular lens (04/28/2017), Biopsy of breast, Tonsillectomy and adenoidectomy. Discharge Vitals Heart Rate (Peripheral) 70 Respiratory Rate 16 Blood Pressure 138/80 Height 152 cm Height 60 in Weight 77 kg Weight 169.4 lb BMI 33.33 What to do next Scheduled Follow-Up Appointments Friday 1:40 PM EDT With: Keya Lucas Where: [facility] Invalid Interpretation Code [address], [address] [place] [address]- \.br\ Friday 11:00 AM EDT \.br\ With: Thien ROPER, Deb Lopez\.br\ Where: [facility]\.br\ Friday 11:00 AM EDT \.br\ With:\.br\ Where: [facility] General Surgery Office/Clini c Noteon 12-10-2023 General Surgery Office/Clinic Note General Surgery Office/Clinic Note Chief Complaint update H&P HPI Staff 68 year old female presents to update H&P for right breast lumpectomy with SN biopsy scheduled 12/16. Last evaluation completed 09/02. Patient required cardiac clearance which has received. Denies changes since last evaluation. History of Present Illness 68 yo female with h/o htn, paroxysmal atrial fibrillation (no longer on Eliquis due to frequent falls), hyperlipidemia, hypothyroidism, LISA, schizophrenia, osteoporosis here for H & P update prior to breast surgery; patient initially seen in August for right breast invasive ductal carcinoma and DCIS, ER/MT positive, HER 2 negative, noted as a 6 mm spiculated mass at 3 o'clock position on mammogram; patient seen by Oncology, had low Oncotype Dx; initially scheduled for surgery in September, but had to have Cardiac clearance that required a nuclear medicine stress test, which was negative for ischemia; patient denies changes in the breast, no pain or nipple discharge, no skin changes. no asa or NSAID use; no tobacco use; no fmhx of breast or ovarian cancers. Review of Systems PHQ Score Initial Depression [...] no anemia, no blood clots, no transfusions. Allergy/Immunologi c: no swollen lymph nodes/glands, no IV drug abuse. Other: Additional ROS info: Except as noted in the above Review of Systems and in the History of Present Illness, all other systems have been reviewed and are negative or noncontributory. Physical Exam Vitals & Measurements HR: 70(Peripheral) RR: 16 BP: 138/80 HT: 60 in HT: 152 cm WT: 77 kg WT: 169.4 lb BMI: 33.33 HEENT: normal conjunctiva, sclera clear, no scleral icterus, EOM intact, PERRLA. oral mucosa moist without lesions Neck: trachea midline , no mass, symmetric, no thyromegaly or nodules. no adenopathy Respiratory: lungs CTA, respirations non labored. Cardiovascular: regular rate and rhythm, no murmur, , no pedal edema or varicosities. Chest (Breasts): symmetric, no discharge, no palpable breast or axillary lumps, masses or tenderness; small scar at 3 o'clock position of right breast from biopsy; bilateral nipple retraction, no nipple discharge or skin changes Gastrointestinal: obese, soft, non distended, no tenderness, no masses, no palpable hernias, diastasis recti no, no hepatosplenomegaly . normal bs Lymphatic: no cervical adenopathy, no axillary adenopathy, no inguinal adenopathy. Musculoskeletal: abnormalgait, digits and nails without infection, nodes, cyanosis, clubbing. Skin: no rashes, no lesions, no ulcers, no subcutaneous nodules, induration. Psychiatric/Neuro: oriented to time, place, person, judgement normal, affect flat, insight intact, no focal deficits. Tests: labs reviewed, x-rays reviewed, review of old records completed , Discussed surgical options, risks, and possible complications with patient. Assessment/Plan 1. Invasive ductal carcinoma of right breast (C50.311: Malignant neoplasm of lower-inner quadrant of right female breast) plan right breast needle-localized lumpectomy with sentinel lymph node biopsy, NO methylene blue due to possible drug reaction with patient's medications; informed consent obtained. Levaquin 750 mg IV prior to OR SCDs Follow-up No qualifying data available Problem List/Past Medical History Ongoing Anxiety disorder BMI 33.0-33.9,adult Fatigue History of recent fall HTN (hypertension) Hyperlipidemia, unspecified Hypothyroid 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 (more content not included)... Normal [facility] Comment on above: Result Comment: Elec tronically Signed By: RADHA ROPER, Milo Posey\Date and Time Signed: 12/10/23 19:57 EDT 36on 11-24-2023 36 Regarding stress test from 11/05/2023: MD Estrella Lemon MA No ischemia; she is at acceptable risk to proceed with surgery. Recommend strict heart rate and blood pressure control and avoidance of major fluid shifts. Thank you Normal [facility] Consultation Noteon 11-20-19 Consultation Note [id number] 7564#1.00TIFF Normal [facility] RAD - MISCon 11-07-2023 RAD - MISC [id number] 227#1.00TIFF [facility] Cardiovascular Reporton Cardiovascular Report [id number] FEA#1.00TIFF Normal [facility] Pre-Certification Formon Pre-Certification Form [id number]#1.00TIFF Normal [facility] Physician Orderon 11-05-2023 Physician Order [id number]#1.00TIFF Normal [facility] Ambulatory Visit Summaryon 0 11-04-2023 Ambulatory Visit Summary MARLEY OSBORN :1955 Visit Date:11/04/2023 Ambulatory Visit Instructions Your Diagnosis Right shoulder pain History of recent fall BMI 34.0-34.9,adult Non-smoker Your Care Team Attending Physician - Keya Lucas Primary Care Physician - Keya Lucas This Is Your Medications List Misc Prescription (Handicap Placard) acetaminophen alendronate (Fosamax 70 mg Tab) ergocalciferol (Vitamin D 50,000 intl units (1.25 mg) oral capsule) haloperidol (haloperidol 5 mg Tab) levothyroxine (levothyroxine 50 mcg (0.05 mg) Tab) lidocaine topical (lidocaine Top 5% film Patch) quetiapine (quetiapine 50 mg oral tablet) senna (senna 8.6 mg Tab) Procedures Performed Biopsy of breast (06/2023), Biopsy of breast (05/2023), Cataract (06/02/2019), Colonoscopy (01/2019), CEIOL - Cataract extraction and insertion of intraocular lens (04/28/2017), Biopsy of breast, Tonsillectomy and adenoidectomy. Discharge Vitals Heart Rate (Peripheral) 78 Respiratory Rate 18 Blood Pressure 122/86 Height 152.0 cm Height 60 in Weight 79.0 kg Weight 173.8 lb BMI 34.19 What to do next Scheduled Follow-Up Appointments Friday 10:30 AM EDT With: Thien ROPER, Deb Lopez Where: [facility] Friday 1:40 PM EDT With: Keya Lucas Where: [facility] [place] [facility] [address] [place] [address]- \.br\ Medications\.br\ What How Much When Why Instructions\.br\ New lidocaine topical (lidocaine Top 5% film Patch) 1 Patches Topical Every day Right shoulder pain History of recent fall BMI 34.0-34.9,adult Non-smoker Refills: 1 apply 12 hours on and 12 hours off daily Pickup at [facility]/pharmacy #[id number]\.br\ Unchanged acetaminophen 500 Milligram Every 6 hours [...] Mouth 2 times a day\.br\ Pharmacy Information\.br\ [facility]/pharmacy #[id number]: [address], [place] [phone]\.br\ Allergies\.br\ Keflex (rash)\.br\ penicillins (rash)\.br\ sulfamethoxazole (rash)\.br\ Problems\.br\ Ongoing - Any problem that you are currently receiving treatment for.\.br\ Anxiety disorder\.br\ BMI 33.0-33.9,adult\.br\ Fatigue\.br\ History of recent fall\.br\ HTN (hypertension)\.br\ Hyperlipidemia, unspecified\.br\ Hypothyroid\.br\ Invasive ductal carcinoma of right breast\.br\ Inversion of left nipple\.br\ Loss of memory\.br\ Major depression with psychotic features\.br\ Obesity\.br\ LISA (obstructive sleep apnea)\.br\ Osteopenia\.br\ Right shoulder pain\.br\ Schizophrenia\.br\ Vitamin D deficiency\.br\ Historical - Any [...] for choosing us for your care.\.br\ \.br\ [facility] Family Medicine Office/Clini c Noteon 11-04-2023 Family Medicine Office/Clinic Note HPI Staff Marley is a 67 year old female presenting for follow up from a fall Pt fell at home a month ago and right arm and shoulder, got tangled up with some cords behind the couch. Pain has improved since falling. when lift arm straight up in front does have pain from right shoulder down arm. pain now 3/10 and when using it go up to a 5/10 intermittent ache Pt does have appointment with psychiatrist in 2 weeks going try and wean off of the haloperidol History of Present Illness pt presents today for right shoulder pain. feel a month ago Review of Systems PHQ Score Initial Depression Screen Score: 0 SCORE Physical Exam Vitals & Measurements HR: 78(Peripheral) RR: 18 BP: 122/86 SpO2: 96% HT: 60 in HT: 152.0 cm WT: 79.0 kg WT: 173.8 lb BMI: 34.19 General: alert, no acute distress ENMT: oral mucosa moist, no pharyngeal erythema or exudate Cardiovascular: regular rate and rhythm, normal peripheral perfusion Respiratory: Lungs CTA, respirations non labored Extremities: no deformity, no trauma Neurological: oriented x 4, LOC appropriate for age, CN II-XII intact, motor strength equal & normal bilaterally, speech normal Assessment/Plan 1. Right shoulder pain (M25.511: Pain in right shoulder) right shoulder pain since falling a month ago. did not go to ER. pain is somewhat improved. but she is still struggling with lift objects. will order x ray TB[facility]. lidocaine patches sent to pharmacy. Ordered: lidocaine topical, 1 patch(es), Topical, Daily, 30 patch(es), Refill(s) 1, apply 12 hours on and 12 hours off daily, [id number], 152, cm, 11/04/23 14:36:00 EDT, Height/Length Dosing, 79, kg, 11/04/23 14:36:00 EDT, Weight Dosing 2. History of recent fall (Z91.81: History of falling) pt fell on her right side about 1 month ago right shoulder has been hurting ever since Ordered: lidocaine topical, 1 patch(es), Topical, Daily, 30 patch(es), Refill(s) 1, apply 12 hours on and 12 hours off daily, [id number], 152, cm, 11/04/23 14:36:00 EDT, Height/Length Dosing, 79, kg, 11/04/23 14:36:00 EDT, Weight Dosing 3. BMI 34.0-34.9,adult (Z68.34: Body mass index [BMI] 34.0-34.9, adult) BMI education Ordered: lidocaine topical, 1 patch(es), Topical, Daily, 30 patch(es), Refill(s) 1, apply 12 hours on and 12 hours off daily, [id number], 152, cm, 11/04/23 14:36:00 EDT, Height/Length Dosing, 79, kg, 11/04/23 14:36:00 EDT, Weight Dosing 4. Non-smoker (Z78.9: Other specified health status) continue not smoking Ordered: lidocaine topical, 1 patch(es), Topical, Daily, 30 patch(es), Refill(s) 1, apply 12 hours on and 12 hours off daily, [id number], 152, cm, 11/04/23 14:36:00 EDT, Height/Length Dosing, 79, kg, 11/04/23 14:36:00 EDT, Weight Dosing Follow-up No qualifying data available Problem List/Past Medical History Ongoing Anxiety disorder BMI 33.0-33.9,adult Fatigue History of recent fall HTN (hypertension) Hyperlipidemia, unspecified Hypothyroid 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 Medications acetaminophen, 500 mg, q6hr, PRN Fosamax 70 mg Tab, 70 mg= 1 tab(s), Oral, q7day, 3 refills haloperidol 5 mg Tab, 5 mg= 1 tab(s), Oral, BID, 1 refills Handicap Placard, See Instructions levothyroxine 50 mcg (0.05 mg) Tab, 50 mcg= 1 tab(s), Oral, Daily, 1 refills lidocaine Top 5% film Patch, 1 patch(es), Topical, Daily, 1 refills quetiapine 50 mg oral tablet, 50 mg= 1 tab(s), Oral, Daily, 1 refills senna 8.6 mg Tab, 8.6 mg= 1 tab(s), Oral, BID, 5 refills, Not taking Vitamin D 50,000 intl units (1.25 mg) oral capsule, 43802 International_Unit = 1 cap(s), Oral, qWeek, 3 refills Allergies Keflex (rash) penicillins (rash) sulfamethoxazole (rash) Social History Alcohol - Denies Alcohol Use, 02/21/2023 Household alcohol concerns: No., 02/21/2023 Substance Abuse - Denies Substance Abuse, 09/03/2023 Tobacco - Denies Tobacco Use, 02/21/2023 Never (less than 100 in lifetime) Tobacco Use:. Never Smokeless Tobacco Use:. Household tobacco concerns: No., 11/04/2023 Family History Dementia: Brother and Brother.Negative: Sister. Omayra Gehrig's disease: Sister. Immunizations Vaccine Date Status Comments SARS-CoV-2 (COVID-19) mRNAMUL.ORD![id number] 03/09/2022 Recorded 2022-08-09: TPV65 influenza virus vaccine, inactivated 02/14/2022 Recorded SARS-CoV-2 (COVID-19) mRNA-1273 vaccine more content not included)... [facility] Comment on above: Result Comment: Elec tronically Signed By: Keya Lucas\.br\Date and Time Signed: 11/04/23 14:59 EDT Echocardiographyon Echocardiography [id number] 85B#1.00TIFF [facility] Orders Onlyon 10-23-2023 Orders Only [id number] Marley Osborn 1955 F Date Provider Department Center 10/23/2023 [id number], HISTORICAL [facility] No family history on file Normal [facility] Office Visiton 10-15-2023 Follow-up visit [id number] Marley Osborn 1955 F Date Provider Department Center 10/15/2023 [id number], EHAB [facility] No family history on file Level of Service:23710 MT OFFICE/OUTPATIENT ESTABLISHED HIGH MDM 40 MIN Normal [facility] ECG 12-Leadon 10-09-2023 ECG 12-Lead [id number] 10A#1.00TIFF [facility] Insurance Correspondenceon 0 10-09-2023 Insurance Correspondence [id number]#1.00TIFF [facility] Lab Reportson 10-08-2023 Lab Reports [id number] [id number]#1.00TIFF [facility] Ambulatory Visit Summaryon 0 10-06-2023 Ambulatory Visit Summary MARLEY OSBORN :1955 Visit Date:10/06/2023 Ambulatory Visit Instructions Your Diagnosis Invasive ductal carcinoma of right breast Osteopenia Your Care Team Attending Physician - Thien ROPER, Deb Lopez Primary Care Physician - Keya Lucas Primary Nurse - Margret GONZALES, Oriana Oswald RN, Oriana This Is Your Medications List [facility] Prescription (Handicap Placard) acetaminophen alendronate (Fosamax 70 [...] 1:40 PM EDT With: Keya Lucas Where: [address] \.br\ Medications\.br\ What How Much When Why [...] 1 Tablets By Mouth Every day\.br\ [facility] Pres[facility] (Handicap Placard) See instructions Annual visit [...] instructions at home:\.br\ Medicines\.br\ ? \.br\ Take trph-xef-qzgkxyt and prescription medicines only as told by [...] your urine pale yellow.\.br\ ? \.br\ Take bxyq-kqa-khnljgr or prescription medicines.\.br\ ? \.br\ Eat foods [...] and water are not available, use hand glove maker.\.br\ ? \.br\ Change your dressing as told [...] numbness in your arm that does n [facility] Consent for Treatmenton 050 Consent for Treatment [id number]#1.00TIFF Normal [facility] ED Pat Eduon 10-06-2023 ED [facility] Lumpectomy, Care After The [...] these instructions at home: Medicines ? Take lscp-hsd-yfcvdjf and prescription medicines only as told by [...] keep your urine pale yellow. ? Take slzq-jfj-ftqwclz or prescription medicines. ? Eat foods that [...] and water are not available, use hand glove maker. ? Change your dressing as told by [...] your in (more content not included)... Normal [facility] ED [facility] Lumpectomy A lumpectomy, sometimes [...] including vitamins, herbs, eye drops, creams, and gjzk-uad-vraafsx medicines. ? Any problems you or family [...] care provider tells you to. ? Taking gxgr-vlj-cuprczs medicines, vitamins, herbs, and supplements. Surgery safety [...] breathing rat (more content not included)... Normal [facility] Oncology Progress Noteon Oncology Progress Note [...] grade 1 with DCIS and without LCIS. ER/MT were positive. 90-100% positive and MT is 80 to 90% positive with HER2 [...] 3.5 mm. Ductal carcinoma in situ: Present Bvh-ic-zgxaevg patterns: Solid Nuclear grade: Grade 1-2 intermediate Necrosis: Not identified Lobular carcinoma in situ: Not identified Lymphatic and or vascular invasion: Not identified. Microcalcification : Not identified. ER +91 to 100%. MT +81 to 90%. HER2 HERLINDA negative 1+ [...] non labored. (more content not included)... Normal [facility] Outside Labson 10-06-2023 Outside Labs [id number]#1.00TIFF Normal [facility] Reference Lab Reporton 10-05 Reference Lab Report [id number]#1.00TIFF Normal [facility] Outside Radiologyon 09-16-19 24 Outside Radiology [id number] [id number]#1.00TIFF Normal [facility] Outside Radiologyon 09-15-19 24 Outside Radiology [id number]#1.00TIFF Normal [facility] Outside Radiology [id number] 0DED#1.00TIFF [facility] Consenton 09-10-2023 Consent [id number]#1.00TIFF Normal [facility] Outside Mammographyon 2023 Outside Mammography [id number] 11DF#1.00TIFF Normal [facility] Outside Radiologyon 09-10-19 24 Outside Radiology [id number]#1.00TIFF [facility] RAD - Ultrasound Reporton RAD - Ultrasound Report [id number] [id number]#1.00TIFF [facility] Consent for Procedure/Surger yon 09-04-2023 Consent for Procedure/Surgery [id number]#1.00TIFF Normal [facility] Consent for Procedure/Surgery [id number] 4CC2#1.00TIFF [facility] Ambulatory Visit Summaryon 0 09-03-2023 Ambulatory Visit Summary MARLEY OSBORN:1955 Visit Date:09/03/2023 Ambulatory Visit Instructions Your Diagnosis [...] 1:40 PM EDT With: Keya Lucas Where: [address] [address]- \.br\ Medications\.br\ What How Much When Why [...] for choosing us for your care.\.br\ \.br\ [facility] Ambulatory Visit Summary MARLEY OSBORN :1955 Visit Date:09/03/2023 Ambulatory Visit Instructions Your Diagnosis Malignant neoplasm of lower-inner quadrant of right female breast Your Care Team Attending Physician - Milo GARCIA MD Primary Care Physician - Keya Lucas This [...] 1:40 PM EDT With: Keya Lucas Where: [facility] [place] [facility] [address] [place] [address]- \.br\ Medications\.br\ What How Much When Why [...] for choosing us for your care.\.br\ \.br\ [facility] Physician Orderon 09-02-2023 Physician Order [id number]#1.00TIFF Normal [facility] Ambulatory Visit Summaryon 0 09-01-2023 Ambulatory Visit Summary MARLEY OSOBRN :1955 Visit Date:09/01/2023 Ambulatory Visit Instructions Your Diagnosis Invasive ductal carcinoma of right breast Your Care Team Attending Physician - Thien ROPER, Deb Lopez Primary Care Physician - Keya Lucas Referring [...] 1:40 PM EDT With: Keya Lucas Where: [facility] [place] [facility] [address] [place] [address]- \.br\ Medications\.br\ What How Much When Why [...] instructions at home:\.br\ Medicines\.br\ ? \.br\ Take ruat-fca-ubmucqo and prescription medicines only as told by [...] your urine pale yellow.\.br\ ? \.br\ Take puib-oha-shstagu or prescription medicines.\.br\ ? \.br\ Eat foods [...] and water are not available, use hand glove maker.\.br\ ? \.br\ Change your dressing as told [...] \.br\ You have a fever.\.br\ ? \.br\ [facility] Consent for Treatmenton Consent for Treatment [id number] 1645#1.00TIFF Normal [facility] ED Pat Eduon 09-01-2023 ED [facility] Lumpectomy, Care After The [...] these instructions at home: Medicines ? Take dcva-bmc-lvslxtc and prescription medicines only as told by [...] keep your urine pale yellow. ? Take qfgt-lcr-vwuqehb or prescription medicines. ? Eat foods that [...] and water are not available, use hand glove maker. ? Change your dressing as told by [...] your in (more content not included)... Normal [facility] ED [facility] Lumpectomy A lumpectomy, sometimes [...] including vitamins, herbs, eye drops, creams, and bzlj-lnt-blseogv medicines. ? Any problems you or family [...] care provider tells you to. ? Taking bnid-xrh-eqptckr medicines, vitamins, herbs, and supplements. Surgery safety [...] breathing rat (more content not included)... Normal [facility] ONC - Otheron 09-01-2023 ONC - Other [id number] 8640#1.00TIFF Normal [facility] Oncology Progress Noteon Oncology Progress Note Chief [...] grade 1 with DCIS and without LCIS. ER/MT were positive. 90-100% positive and MT is 80 to 90% positive with HER2 [...] 3.5 mm. Ductal carcinoma in situ: Present Iue-fw-kunuphb patterns: Solid Nuclear grade: Grade 1-2 intermediate Necrosis: Not identified Lobular carcinoma in situ: Not identified Lymphatic and or vascular invasion: Not identified. Microcalcification : Not identified. ER +91 to 100%. MT +81 to 90%. HER2 HERLINDA negative 1+ [...] Done with presence of Susanne and Deborah case briefer as chaperones. No masses I could feel [...] DCIS and no LCIS. ER positive 90-100%, MT positive 80-90. - Need referral to surgery [...] Follow-up With When Contact Information Thien ROPER, Deb Lopez, JULIÁN, ONC Additional Instructions: Referral to surgery for (more content not included)... Normal [facility] Pathology Noteon 08-19-2023 Pathology Note [id number]#1.00TIFF Normal [facility] Ambulatory Visit Summaryon 0 08-05-2023 Ambulatory Visit Summary MARLEY OSBORN :1955 Visit Date:08/05/2023 Ambulatory Visit Instructions Your Diagnosis Invasive ductal carcinoma of right breast BMI 33.0-33.9,adult Non-smoker Your Care Team Attending Physician - Keya Lucas Primary Care Physician - Keya Lucas This Is Your Medications List [facility] Prescription (Handicap Placard) acetaminophen alendronate (Fosamax 70 [...] 1:40 PM EDT With: Keya Lucas Where: [facility] Normal [address] [place] [address]- \.br\ Medications\.br\ What How Much When Why [...] receptors\.br\ Estrogen receptors (ER) and progesterone receptors (MT) are proteins that can be found on cancer cells. When the hormones estrogen and progesterone attach to ER or MT, they tell the cell to grow and divide.\.br\ ? \.br\ ER positive (ER+) or MT positive (MT+) means that the breast cancer cells have one or both of these receptors. Treatment will include medicines that lower hormone levels or keep them from attaching to the receptors.\.br\ ? \.br\ ER negative (ER-) or MT negative (MT-) means that the breast cancer does not have these receptors. Medicines that lower hormone levels or keep them from acting on the cancer cells do not help treat ER- or MT- breast cancers.\.br\ Human epidermal growth factor receptor [...] unfavorable finding.\.br\ DNA ploidy helps predict karan [facility] Family Medicine Office/Clini c Noteon 08-05-2023 Family [...] cancer handout provided. RTC as needed Ordered: [facility] [place] Ambulatory Referral 2. BMI 33.0-33.9,adult (Z68.33: Body mass index [BMI] 33.0-33.9, adult) BMI education complete Ordered: [facility] [place] Internal Ambulatory Referral 3. Non-smoker (Z78.9: Other specified health status) continue not smoking Ordered: [facility] [place] Internal Ambulatory Referral Orders: levothyroxine, 50 mcg = 1 tab(s), Oral, Daily, # 90 tab(s), Refills(s) 1, Pharmacy: [id number], 154.9, cm, 02/04/23 10:18:00 EDT, Height/Length Dosing, 75, kg, 02/04/23 10:18:00 EDT, Weight Dosing levothyroxine, 50 mcg = 1 tab(s), Oral, Daily, # 90 tab(s), Refills(s) 1, Pharmacy: [id number], 152, cm, 06/24/23 13:38:00 EST, Height/Length [...] 50,000 intl units (1.25 mg) oral capsule, 95667 International_Unit = 1 cap(s), Oral, qWeek, 3 [...] Immunizations Vaccine Date Status Comments SARS-CoV-2 (COVID-19) mRNAMUL.ORD![id number] 03/09/2022 Recorded 2022-08-09: TPV65 influenza virus vaccine, inactivated 02/14/2022 Recorded SARS-CoV-2 (COVID-19) mRNA-1273 vaccine 03/29/2021 Recorded 2022-08-09: TPV65 influenza virus vaccine, inactivated 01/27/2021 Recorded SARS-CoV-2 (COVID-19) mRNA-1273 vaccine 08/23/2020 Recorded SARS-CoV-2 (COVID-19) mRNA-1273 vaccine 07/27/2020 Recorded pneumococcal 13-valent vaccine 02/17/2020 Recorded influenza virus vaccine, inactivated 02/20/2019 Recorded influenza virus vaccine, inactivated 03/31/2018 Recorded Normal [facility] Comment on above: Result Comment: Elec tronically Signed By: Keya Lucas\.br\Date and Time Signed: 08/05/23 14:01 EST Pathology Noteon 08-05-2023 Pathology Note [id number]#1.00TIFF Normal [facility] Patient Educationon 08-05-19 Patient Education Obstetrics and [...] receptors Estrogen receptors (ER) and progesterone receptors (MT) are proteins that can be found on cancer cells. When the hormones estrogen and progesterone attach to ER or MT, they tell the cell to grow and divide. ? ER positive (ER+) or MT positive (MT+) means that the breast cancer cells have one or both of these receptors. Treatment will include medicines that lower hormone levels or keep them from attaching to the receptors. ? ER negative (ER-) or MT negative (MT-) means that the breast cancer does not have these receptors. Medicines that lower hormone levels or keep them from acting on the cancer cells do not help treat ER- or MT- breast cancers. Human epidermal growth factor receptor [...] making tr (more content not included)... Normal [facility] Outside Mammographyon 2023 Outside Mammography [id number]#1.00TIFF Normal [facility] Outside Mammography [id number]#1.00TIFF Normal [facility] Karan 07-28-2023 L Specimen: [id number] Received: 07/29/23 Status: EL Bunch Num: [id number] Spec Type: Surgical Subm Dr: Kayley Weiss MD Tissues: A BREAST CORE NO CALCS (RT BREAST 3-4:00) Procedures: HE/4, Gross/Micro L4, E CADHERIN, ER, MT Age/ Patient Sex Location Account Attending Physician Marley Osborn 67/F [facility] [id number] Kayley Weiss MD SPEC NUM: [id number] RECD: 07/29/23 STATUS: EL CRYSTAL NUM: [id number] PONCE: 07/28/23- SUBM DR: Kayley Weiss MD ENTERED: 07/29/238 [facility] DR: Ying,Lab Keya Nieves DENTAL SURGERY DOCTOR SPEC TYPE: Surgical DEPT: MOE XIONG ORDERED: HE/4, Gross/Micro L4, E CADHERIN, ER, MT ORDERED: HE/4, Gross/Micro L4, E CADHERIN, ER, MT Supplemental Report Addendum 1 Entered: 08/08/23 Supplemental for findings of HER2 by immunohistochemist farshad from [employer]: -Negative/low -Score: 1+ Addendum Signed (signature on file) Vijay Chi MD 08/08/2339 -- Pathological Diagnosis Right breast mass at 3?4:00, stereotactic biopsy: - Invasive ductal carcinoma, NOS type, with minor lobular features - Please also see cancer summary and synoptic report below [facility]ER CASE SUMMARY SPECIMEN Procedure: Needle biopsy -- Specimen: [id number] Received: 07/29/23-1256 Status: EL Bunch Num: [id number] Spec Type: Surgical Subm Dr: Kayley Weiss MD Tissues: A BREAST CORE NO CALCS (RT BREAST 3-4:00) Procedures: HE/4, Gross/Micro L4, E CADHERIN, ER, MT -- Patient: Marley Osborn [id number] (Continued) -- Specimen: [id number] Received: 07/29/23 (Continued) Pathological Diagnosis (Continued) Signed (signatu re on file) Vijay Chi MD 07/31/23 1328 -- Specimen: [id number] Received: 07/29/23 Status: EL Bunch Num: [id number] Spec Type: Surgical Subm Dr: Kayley Weiss MD Tissues: A BREAST CORE NO CALCS (RT BREAST 3-4:00) Procedures: HE/4, Gross/Micro L4, E CADHERIN, ER, MT -- Patient: Marley Osborn [id number] (Continued) -- Specimen: [id number] Received: 07/29/23-1257 (Continued) Pathological Diagnosis (Continued) Specimen Laterality: Right [...] Right breast mass at 3-4:00 -- Specimen: [id number] Received: 07/29/23-1257 Status: EL Bunch Num: [id number] Spec Type: Surgical Subm Dr: Kayley Weiss MD Tissues: A BREAST CORE NO CALCS (RT BREAST 3-4:00) Procedures: HE/4, Gross/Micro L4, E CADHERIN, ER, MT -- Patient: Marley Osborn [id number] (Continued) -- Specimen: [id number] Received: 07/29/23-1257 (Continued) Signed (signatu re on file) Vijay Chi MD 07/31/23 1328 (more content not included)... Normal [facility] Physician Orderon 07-23-2023 Physician Order [id number]#1.00TIFF [facility] Physician Orderon 07-04-2023 Physician Order [id number]#1.00TIFF [facility] Sleep Studieson 07-04-2023 Sleep Studies [id number] 06CA#1.00TIFF [facility] Ambulatory Visit Summaryon 0 06-24-2023 Ambulatory Visit Summary MARLEY OSBORN :1955 Visit Date:06/24/2023 Ambulatory Visit Instructions Your Diagnosis Fatigue Daytime somnolence Gasping for breath LISA (obstructive sleep apnea) Drooling Vitamin D deficiency BMI 33.0-33.9,adult Non-smoker Your Care Team Attending Physician - Keya Lucas Primary Care Physician - Keya Lucas This Is Your Medications List [facility] Prescription (Handicap Placard) acetaminophen alendronate (Fosamax 70 [...] 1:40 PM EDT With: Keya Lucas Where: [address] \.br\ Medications\.br\ What How Much When Why Instructions\.br\ New ergocalciferol (Vitamin D 50,000 intl units (1.25 mg) oral capsule) 1 Capsules By Mouth Every week Fatigue Daytime somnolence Gasping for breath LISA (obstructive sleep apnea) Drooling BMI 33.0-33.9,adult Non-smoker Refills: 3 Pickup at [facility]/pharmacy #[id number]\.br\ Unchanged acetaminophen 500 Milligram Every 6 hours [...] Mouth 2 times a day\.br\ Pharmacy Information\.br\ [id number]: [address], [place] [phone]\.br\ Allergies\.br\ Keflex (rash)\.br\ penicillins (rash)\.br\ sulfamethoxazole (rash)\.br\ [...] choosing us for your care.\.br\ \.br\ [facility] Family Medicine Office/Clini c Noteon 06-24-2023 Family Medicine Office/Clinic Note HPI Staff Marley [...] pt will have sleep study done at [facility]. RTC 6 months unless needed before that. Ordered: ergocalciferol, 50,000 International_Unit = 1 cap(s), Oral, qWeek, # 4 cap(s), Refills(s) 3, Pharmacy: [facility], 152, cm, 06/24/23 13:38:00 EST, Height/Length Dosing, 77.3, kg, 06/24/23 13:38:00 EST, Weight Dosing 2. Daytime somnolence (R40.0: Somnolence) pt c/o worsening day time sleepiness. we decreased a small portion of her psych meds at last visit. but she is still having the issues. will send order to [facility] for sleep study Ordered: ergocalciferol, 50,000 International_Unit = 1 cap(s), Oral, qWeek, # 4 cap(s), Refills(s) 3, Pharmacy: [facility], 152, cm, 06/24/23 13:38:00 EST, Height/Length Dosing, 77.3, kg, 06/24/23 13:38:00 EST, Weight Dosing 3. Gasping for breath (R06.89: Other abnormalities of breathing) wakes up gasping for air when sleeping Ordered: ergocalciferol, 50,000 International_Unit = 1 cap(s), Oral, qWeek, # 4 cap(s), Refills(s) 3, [facility], 152, cm, 06/24/23 13:38:00 EST, Height/Length Dosing, 77.3, kg, 06/24/23 13:38:00 EST, Weight Dosing 4. LISA (obstructive sleep apnea) (G47.33: Obstructive sleep apnea (adult) (pediatric)) pt states she had testing about 10 years ago but refused to wear the mask so she never got a machine. Ordered: ergocalciferol, 50,000 International_Unit = 1 cap(s), Oral, qWeek, # 4 cap(s), Refills(s) 3, [facility], 152, cm, 06/24/23 13:38:00 EST, Height/Length Dosing, 77.3, kg, 06/24/23 13:38:00 EST, Weight Dosing 5. Drooling (K11.7: Disturbances of salivary secretion) pt still drooling even with decrease of haldol. educated pt that haldol causes drooling. pt verbalizes understanding Ordered: ergocalciferol, 50,000 International_Unit = 1 cap(s), Oral, qWeek, # 4 cap(s), Refills(s) 3, [facility], 152, cm, 06/24/23 13:38:00 EST, Height/Length Dosing, 77.3, kg, 06/24/23 13:38:00 EST, Weight Dosing 6. Vitamin D deficiency (E55.9: Vitamin D deficiency, unspecified) vitamin d rx sent to pharmacy 7. BMI 33.0-33.9,adult (Z68.33: Body mass index [BMI] 33.0-33.9, adult) BMI education complete Ordered: ergocalciferol, 50,000 International_Unit = 1 cap(s), Oral, qWeek, # 4 cap(s), Refills(s) 3, [facility], 152, cm, 06/24/23 13:38:00 EST, Height/Length Dosing, 77.3, kg, 06/24/23 13:38:00 EST, Weight Dosing 8. Non-smoker (Z78.9: Other specified health status) continue not smoking Ordered: ergocalciferol, 50,000 International_Unit = 1 cap(s), Oral, qWeek, # 4 cap(s), Refills(s) 3, [facility], 152, cm, 06/24/23 13:38:00 EST, Height/Length [...] mg Tab (more content not included)... Normal [facility] Comment on above: Result Comment: Elec tronically Signed By: Keya Lucas\.br\Date and Time Signed: 06/24/23 14:09 EST Physician Orderon 06-24-2023 Physician Order [id number]#1.00TIFF Normal [facility] T3 Freeon 06-13-2023 Free T3 [Mass/Vol] 2.4 pg/mL Invalid Interpretation Code 2.0-4.4 [facility] Comment on above: Result Comment: Perf ormed at: [facility] [address] [id number] PhD Nazanin Nolasco Performed By: #### 2 178105, 4638168, 5151780, 8838533, 2144207, 7948260, 903811408, 81068933, 9498632 ####[facility] [address] [place] [address] Ambulatory Visit Summaryon 0 06-11-2023 Ambulatory Visit [...] Follow-Up Appointments Friday 1:40 PM EST With: Keya Lucas Where: [facility] Normal [address] [place] [phone]- \.br\ Medications\.br\ What How Much When Why Instructions\.br\ New senna (senna 8.6 mg Tab) 1 Tablets By Mouth 2 times a day Refills: 5 Pickup at [facility]/pharmacy #2753\.br\ Changed haloperidol (haloperidol 5 mg Tab) 1 [...] features Fall 5 years \.br\ Pharmacy Information\.br\ [facility]: [address], [place] [phone]\.br\ Allergies\.br\ Keflex (rash)\.br\ penicillins (rash)\.br\ sulfamethoxazole (rash)\.br\ [...] for choosing us for your care.\.br\ \.br\ [facility] Auto Diffon 06-11-2023 Basophils/100 WBC (Bld) 0.6 % Normal 0.0-2.0 [facility] Comment on above: Order Comment: Order Added by Discern Expert. Performed By: #### 2 982671, 4743135, 2939228, 3569453, 6816688, 2014849, 169797240, 26909595, 3095274 ####[address] [place] [address] Basophils/Leukocyt es Auto (Bld) [Pure # fraction] 0.0 E9/L Normal 0.0-0.2 [facility] Comment on above: Order Comment: Order Added by Discern Expert. Performed By: #### 2 265988, 3362586, 0533215, 7987389, 6430034, 5794035, 614015924, 58363991, 0575096 ####[address] [place] [address] Eosinophils/100 WBC (Bld) 1.0 % Normal 0.0-8.0 [facility] Comment on above: Order Comment: Order Added by Discern Expert. Performed By: #### 2 897845, 1156526, 5187913, 1368296, 9737850, 3621051, 918395899, 02100462, 7380393 ####[address] [address] Eosinophils/Leukoc ytes Auto (Bld) [Pure # fraction] 0.1 E9/L Normal 0.0-0.5 [facility] Comment on above: Order Comment: Order Added by Discern Expert. Performed By: #### 2 384444, 2024922, 1606269, 2493969, 2895929, 4649401, 329656131, 50204279, 4099863 ####[address] [place] [address] Lymphocytes/100 WBC (Bld) 22.6 % Normal 14.0-50.0 [facility] Comment on above: Order Comment: Order Added by Discern Expert. Performed By: #### 2 568183, 3947222, 1093881, 9696210, 5135423, 9443407, 372977345, 95019378, 6491536 ####[address] [place] [address] Lymphocytes/Leukoc ytes Auto (Bld) [Pure # fraction] 1.3 E9/L Normal 1.0-4.0 [facility] Comment on above: Order Comment: Order Added by Discern Expert. Performed By: #### 2 629270, 5935642, 8331600, 6397547, 3521225, 8745452, 613264965, 39850147, 1475597 ####[address] [place] [address] Monocytes/100 WBC (Bld) 5.5 % Normal 4.0-14.0 [facility] Comment on above: Order Comment: Order Added by Discern Expert. Performed By: #### 2 500711, 4358285, 1205466, 3284620, 3993455, 5251141, 051882801, 43422681, 2432053 ####[address] [address] Monocytes/Leukocyt es Auto (Bld) [Pure # fraction] 0.3 E9/L Normal 0.2-1.0 [facility] Comment on above: Order Comment: Order Added by Timur Expert. Performed By: #### 2 775315, 6326035, 7994588, 6825055, 8300023, 5536253, 498749267, 68321120, 2689520 ####[address] [place] [address] Neutrophils/100 WBC (Bld) 70.3 % Normal 36.0-75.0 [facility] Comment on above: Order Comment: Order Added by Discern Expert. Performed By: #### 2 475142, 7673408, 2761458, 9923089, 7301146, 6247541, 636413666, 83742522, 1174800 ####[address] [place] [address] Neutrophils/Leukoc ytes Auto (Bld) [Pure # fraction] 4.2 E9/L Normal 2.0-7.5 [facility] Comment on above: Order Comment: Order Added by Discern Expert. Performed By: #### 2 732068, 6408976, 6754543, 5001824, 5933362, 0600148, 158073827, 87147127, 1884407 ####[facility] [address] [place] [address] CBC w/ Auto Diffon Erythrocyte distribution width (RBC) [Ratio] 13.9 % Normal 10.9-14.2 [facility] Comment on above: Performed By: #### 2 056264, 4228370, 1147730, 8097893, 4034245, 3025676, 135325026, 30069687, 5845685 ####[address] [place] [address] Hematocrit (Bld) [Volume fraction] 36.1 % Normal 34.0-46.0 [facility] Comment on above: Performed By: #### 2 519581, 0322874, 0529514, 6105187, 8919899, 9093761, 880360188, 44867819, 0861508 ####[address] [place] [address] Hemoglobin (Bld) [Mass/Vol] 12.0 g/dL Normal 12.0-16.0 [facility] Comment on above: Performed By: #### 2 073189, 8752065, 3160286, 1484763, 7239232, 6798381, 589380872, 45913339, 7236297 ####[address] [place] [address] MCH (RBC) [Entitic mass] 29.1 pg Normal 27.0-34.0 [facility] Comment on above: Performed By: #### 2 150688, 2061752, 1050446, 1236299, 6710979, 2938329, 163092229, 69541444, 8215624 ####[address] [place] [address] MCHC (RBC) [Mass/Vol] 33.1 g/dL Normal 31.4-36.0 [facility] Comment on above: Performed By: #### 2 900290, 2709220, 5006054, 6281898, 6860253, 1743222, 058685438, 63253462, 8544982 ####[facility] [address] [place] [address] MCV (RBC) [Entitic vol] 87.9 fL Normal 80.0-100.0 [facility] Comment on above: Performed By: #### 2 714915, 7676224, 2866334, 0294928, 5742762, 3894877, 538099350, 54844874, 5097560 ####[address] [address] Platelet mean volume (Bld) [Entitic vol] 7.9 fL Normal 6.4-10.8 [facility] Comment on above: Performed By: #### 2 515057, 3952483, 3416532, 2363924, 8917961, 2101288, 367599560, 60794859, 3937867 ####[address] [address] Platelets (Bld) [#/Vol] 231.0 E9/L Normal 150.0-500.0 [facility] Comment on above: Performed By: #### 2 738012, 0210870, 8222781, 4638471, 0991297, 5772218, 932953247, 24823778, 9685661 ####[address] [address] RBC (Bld) [#/Vol] 4.1 E12/L Low 4.3-5.9 [facility] Comment on above: Performed By: #### 2 333519, 3438256, 1212629, 3203419, 6956562, 8787011, 587371774, 81754657, 6430349 ####[address] [address] WBC corrected for nucl RBC Auto (Bld) [#/Vol] 5.9 E9/L Normal 4.0-11.0 [facility] Comment on above: Performed By: #### 2 072897, 7107550, 8744589, 5237990, 6336606, 9645586, 048253246, 49286809, 3046842 ####[facility] [address] [place] [address] CHEMISTRYOrdered By: SYSTEM SYSTEM on 06-11-2023 Albumin [...] 06-11-2023 Albumin [Mass/Vol] 4.1 g/dL Normal 3.3-5.0 [facility] Comment on above: Performed By: #### 2 210141, 3122268, 2518559, 5644607, 5899349, 1718176, 294020390, 79542379, 4630610 ####[facility] [address] [place] [address] Albumin/Globulin [Mass ratio] 1.7 {ratio} Normal 1.1-2.2 [facility] Comment on above: Performed By: #### 2 931738, 5209588, 0521502, 0954329, 6918872, 8409275, 357527934, 39552508, 6926460 ####[facility] [address] [place] [address] Alk Phos 99 Int._Unit/L High 21-98 [facility] Comment on above: Performed By: #### 2 846898, 5411583, 5284825, 0555637, 5854805, 5193261, 983132889, 08451277, 5360728 ####[facility] [address] [place] [address] ALT 14 Int._Unit/L Normal 6-46 [facility] Comment on above: Performed By: #### 2 381157, 2150063, 1398485, 3462549, 6198003, 6266739, 099369001, 86569063, 3766121 ####[facility] [address] [place] [address] Anion gap [Moles/Vol] 12 mmol/L Normal 6-16 [facility] Comment on above: Performed By: #### 2 831695, 1015555, 7246533, 8107730, 6405771, 8220007, 711150442, 15011985, 9651298 ####[facility] [address] [place] [address] AST 15 Int._Unit/L Normal 5-43 [facility] Comment on above: Performed By: #### 2 718077, 8295197, 1242360, 9922240, 3184303, 8712757, 526146662, 60456091, 6942822 ####[facility] [address] [place] [address] Bili Total 0.8 mg/dL Normal 0.0-1.1 [facility] Comment on above: Performed By: #### 2 616422, 7303132, 6980776, 9669287, 5686067, 9851199, 615670420, 08313211, 9636660 ####[facility] [address] [place] [address] BUN/Creat Ratio 18 No Units Normal 10-20 [facility] Comment on above: Performed By: #### 2 858127, 7428248, 8725682, 2692722, 6337070, 1660722, 497022373, 03638951, 5038145 ####[facility] [address] [place] [address] Calcium [Mass/Vol] 9.5 mg/dL Normal 8.9-11.1 [facility] Comment on above: Performed By: #### 2 822511, 7964323, 9443684, 0612498, 3297455, 8318421, 625271452, 16042801, 4558586 ####[facility] [address] [place] [address] Chloride [Moles/Vol] 105 mmol/L Normal 101-111 [facility] Comment on above: Performed By: #### 2 407573, 8720961, 0200778, 1714445, 6692323, 9891442, 343711556, 05659279, 1040712 ####[facility] [address] [place] [address] CO2 [Moles/Vol] 28 mmol/L Normal 21-31 [facility] Comment on above: Performed By: #### 2 332912, 3161694, 7984295, 4458069, 5074940, 2837229, 323336309, 57683309, 4100551 ####[facility] [address] [place] [address] Creatinine [Mass/Vol] 1.2 mg/dL Normal 0.5-1.3 [facility] Comment on above: Performed By: #### 2 546089, 1549331, 5752645, 4659580, 7669362, 5467878, 535178948, 70783250, 7101113 ####[facility] [address] [place] [address] Globulin (S) [Mass/Vol] 2.4 g/dL Normal 1.4-4.0 [facility] Comment on above: Performed By: #### 2 380276, 8471425, 3572201, 5369103, 4409730, 3975954, 609733420, 02311311, 5123212 ####[facility] [address] [place] [address] Glucose [Mass/Vol] 97 mg/dL Normal 55-199 [facility] Comment on above: Performed By: #### 2 887648, 3397712, 9747687, 4082819, 3154798, 4452416, 718175407, 49487188, 6974020 ####[facility] [address] [place] [address] Potassium [Moles/Vol] 4.0 mmol/L Normal 3.5-5.3 [facility] Comment on above: Performed By: #### 2 538875, 3241275, 3434425, 8768996, 8618488, 4663217, 979358803, 83673136, 7239931 ####[facility] [address] [place] [address] Protein [Mass/Vol] 6.5 g/dL Normal 6.0-7.8 [facility] Comment on above: Performed By: #### 2 624037, 4689095, 2392453, 1878374, 1416292, 8859182, 678616170, 99735690, 9167714 ####[facility] [address] [place] [address] Sodium [Moles/Vol] 141 mmol/L Normal 135-145 [facility] Comment on above: Performed By: #### 2 175578, 8489081, 8693336, 4856398, 2525677, 2407957, 832503730, 20142629, 8673255 ####[facility] [address] [place] [address] Urea nitrogen [Mass/Vol] 22 mg/dL High 5-21 [facility] Comment on above: Performed By: #### 2 946780, 7717879, 1650325, 5367383, 3358730, 9251323, 236936169, 27411317, 6827081 ####[facility] [address] [place] [address] Family Medicine Office/Clini c Noteon 06-11-2023 Family [...] Metabolic Panel Free T4 Lab Specimen Collect 55951 Lipid Panel T3 Free Thyroid Stimulating Hormone Vitamin D 25 Hydroxy 3. Hyperlipidemia, unspecified (E78.5: Hyperlipidemia, unspecified) lipid drawn in office today Ordered: CBC w/ Auto Diff Comprehensive Metabolic Panel Free T4 Lab Specimen Collect 27364 Lipid Panel T3 Free Thyroid Stimulating Hormone Vitamin D 25 Hydroxy 4. Hypothyroid (E03.9: Hypothyroidism, unspecified) TSH T3 and T4 drawn in office today Ordered: CBC w/ Auto Diff Comprehensive Metabolic Panel Free T4 Lab Specimen Collect 94137 Lipid Panel T3 Free Thyroid Stimulating Hormone Vitamin D 25 Hydroxy 5. Osteopenia (M85.80: Other specified disorders of bone density and structure, unspecified site) pt to continue aldrenonate Ordered: CBC w/ Auto Diff Comprehensive Metabolic Panel Free T4 Lab Specimen Collect 72799 Lipid Panel T3 Free Thyroid Stimulating Hormone Vitamin D 25 Hydroxy 6. Fatigue (R53.83: Other fatigue) labs drawn in office today Ordered: Free T4 Lab Specimen Collect 83639 T3 Free 7. BMI 33.0-33.9,adult (Z68.33: Body mass index [BMI] 33.0-33.9, adult) BMI education complete 8. Non-smoker (Z78.9: Other specified health status) continue not smoking Orders: haloperidol, 5 mg = 1 tab(s), Oral, BID, changed to BID 06/11/23, # 270 tab(s), Refills(s) 1, Pharmacy: [facility]/pharmacy #6177, 154.9, cm, 02/04/23 10:18:00 EDT, Height/Length Dosing, 75, kg, 02/04/23 10:18:00 EDT, Weight Dosing senna, 8.6 mg = 1 tab(s), Oral, BID, # 60 tab(s), Refills(s) 3, Pharmacy: [facility]6177, 154.9, cm, 02/04/23 10:18:00 EDT, Height/Length Dosing, 75, kg, 02/04/23 10:18:00 EDT, Weight Dosing senna, 8.6 mg = 1 tab(s), Oral, BID, # 60 tab(s), Refills(s) 5, Pharmacy: [facility]/pharmacy #6177, 153, cm, 02/21/23 11:33:00 EDT, Height/Length [...] Tonsillectomy and (more content not included)... Normal [facility] Comment on above: Result Comment: Elec tronically Signed By: Ezequiel MYLES, Keya Turner\.br\Date and Time Signed: 06/11/23 16:21 EST Free T4on 06-11-2023 Free T4 [Mass/Vol] 0.95 ng/dL Normal 0.58-1.64 [facility] Comment on above: Performed By: #### 2 267125, 6358259, 3758022, 6832717, 6340218, 1789977, 049307232, 19648536, 0792370 ####[facility] [address] [place] [address] HEMATOLOGYOrdered By: SYSTEM SYSTEM on 06-11-2023 Basophils/100 [...] 22.6 % Normal 14.0 - 50.0 % [facility] HemeAutoSS Lymphocytes/Leukoc ytes Auto (Bld) [Pure # fraction] 1.3 E9/L Normal 1.0 - 4.0 E9/L [facility] HemeAutoSS Monocytes/100 WBC (Bld) 5.5 % Normal 4.0 - 14.0 % [facility] HemeAutoSS Monocytes/Leukocyt es Auto (Bld) [Pure # fraction] 0.3 E9/L Normal 0.2 - 1.0 E9/L [facility] HemeAutoSS Neutrophils/100 WBC (Bld) 70.3 % Normal 36.0 - 75.0 % [facility] HemeAutoSS Neutrophils/Leukoc ytes Auto (Bld) [Pure # fraction] 4.2 E9/L Normal 2.0 - 7.5 E9/L FT HemeAutoSS HEMATOLOGYOrdered By: Venkatesh Rust on 06-11-2023 Erythrocyte distribution width (RBC) [Ratio] 13.9 % Normal 10.9 - 14.2 % [facility] HemeAutoSS Hematocrit (Bld) [Volume fraction] 36.1 % Normal 34.0 - 46.0 % [facility]eAutoSS Hemoglobin (Bld) [Mass/Vol] 12.0 g/dL Normal 12.0 - 16.0 gm/dL FT HemeAutoSS MCH (RBC) [Entitic mass] 29.1 pg [...] 5.9 E9/L Normal 4.0 - 11.0 E9/L [facility] HemeAutoSS Lipid Panelon 06-11-2023 Cholesterol [Mass/Vol] 219 mg/dL High 120-200 [facility] Comment on above: Performed By: #### 2 936342, 8459529, 2616327, 3825209, 5218951, 0821871, 351796435, 59942556, 5097093 ####[facility] [facility] [address] [place] [address] Cholesterol in HDL [Mass/Vol] 93 mg/dL Invalid Interpretation Code [facility] Comment on above: Result Comment: '>= 60 LOW RISK' '<= 40 HIGH RISK' Performed By: #### 2 [id number], 0546593, 0895320, 0781209, 3793495, 1550337, [id number], 60215509, 7085625 ####[facility] [address] [place] [address] Cholesterol in LDL [Mass/Vol] 94 mg/dL Normal <=129 [facility] Comment on above: Performed By: #### 2 142536, 5688786, 1359820, 8905958, 6647094, 6686582, [id number], 71769462, 6491145 ####[facility] [address] [place] [address] Cholesterol in VLDL [Mass/Vol] 33 mg/dL Normal 7-40 [facility] Comment on above: Performed By: #### 2 874744, 1311465, 9007026, 4031086, 9901981, 8781825, 854125885, 09552232, 1368225 ####[facility] [address] [place] [address] Triglyceride [Mass/Vol] 167 mg/dL High <=149 [facility] Comment on above: Performed By: #### 2 045884, 5865243, 3538521, 9389639, 8696195, 2740872, 971269283, 57202266, 6469868 ####[facility] [address] [place] [address] TSHon 06-11-2023 TSH Qn 1.81 m[IU]/L Normal 0.34-5.60 [facility] Comment on above: Performed By: #### 2 465456, 2325182, 9871691, 9635116, 9837200, 3325489, 475976919, 99865834, 3257229 ####[facility] [address] [place] [address] Vitamin D 25 Hydroxyon 06-11 Vitamin D 25 Hydroxy 17.1 ng/mL Low 30.0-100.0 [facility] Comment on above: Performed By: #### 2 386733, 4637475, 5870733, 0972855, 6300716, 0118837, 440727510, 40152488, 4714302 ####[facility] [address] [place] [address] eGFRon 06-11-2023 eGFR 49 mL/min/1.73 m2 Low >=59 [facility] Comment on above: Order Comment: Order added by Discern Expert. Performed By: #### 2 673477, 7782932, 3523934, 2747710, 7447175, 6887639, 597332756, 85605471, 8612422 ####[facility] [address] [place] [address] Consultation Noteon 06-09-19 24 Consultation Note [id number] 0DD2#1.00TIFF Normal [facility] RAD - Ultrasound Reporton RAD - Ultrasound Report [id number]#1.00TIFF Normal [facility] Pathology Noteon 05-21-2023 Pathology Note [id number]#1.00TIFF Normal [facility] RAD - Ultrasound Reporton RAD - Ultrasound Report [id number]#1.00TIFF Normal [facility] Physician Orderon 05-02-2023 Physician Order [id number]#1.00TIFF Normal [facility] Dexa Scanson 04-16-2023 Dexa Scans [id number] 3ED#1.00TIFF Normal [facility] Lab Reportson 04-16-2023 Lab Reports [id number] 5FA#1.00TIFF Normal [facility] Outside Mammographyon 2022 Outside Mammography [id number] 2008#1.00TIFF [facility] Hospice Recordson 03-19-2023 Hospice Records [id number] 0166#1.00TIFF [facility] Ambulatory Visit Summaryon 0 02-21-2023 Ambulatory [...] Follow-Up Appointments Friday 11:00 AM EDT [place] [facility] [place]-21-2023 Family Medicine Office/Clinic [...] of clutter to prevent tripping and/or falling. [place] Advance Directives reviewed, patient has copy at [...] this time. Colonoscopy last completed at [facility], has been requested. DEXA scan and Mammogram ordered and faxed to [facility]. Reviewed pain symptoms with patient: reports no [...] avoid smoking. (more content not included)... Normal [facility] Comment on above: Result Comment: [...] night-lights. ? Place frequently used items in tcmc-hr-ihedu places. Lower the shelves around your home [...] the way. ? Do not use floor lao or wax that makes floors slippery. If [...] include working with a physical therapist or wellness trainer to improve your strength, balance, and endurance. Where to find more information ? Centers for Disease Control and Prevention, [place]: www.cdc.gov ? National [place] on Aging: www.barrera.nih.gov Contact a health care [...] care provider. (more content not included)... Normal [facility] Screenson 02-21-2023 Screens [id number]#1.00CD:127 Normal [facility] Ambulatory Visit Summaryon 0 02-04-2023 [...] Mouth 3 times a day Pickup at [facility]/pharmacy #6177 Changed levothyroxine (levothyroxine 50 mcg (0.05 mg) Tab) 1 Tablets By Mouth Every day Pickup at [facility]/pharmacy #6177 Changed quetiapine (quetiapine 25 mg Tab) 1 Tablets By Mouth Every day Pickup at [facility]/pharmacy #6177 Changed quetiapine (quetiapine 50 mg oral tablet) 1 Tablets By Mouth Every day Pickup at [facility]/pharmacy #6177 Changed senna (senna 8.6 mg Tab) 1 Tablets By Mouth 2 times a day Pickup at [facility]/pharmacy #6177 Pharmacy Information [facility]/pharmacy #6177: [address], [place] [id number] [phone] Allergies Keflex (rash) penicillins (rash) sulfamethoxazole (rash) Problems Ongoing - Any problem that you are currently receiving treatment for. Anxiety disorder HTN (hypertension) Hyperlipidemia, unspecified Loss of memory Major depression with psychotic features LISA (obstructive sleep apnea) Spasm of muscle Historical - Any problem that you are no longer receiving treatment for. Depression Hypothyroidism IBS - Irritable bowel syndrome Paranoid schizophrenia Shilo [facility] Family Medicine Office/Clini c Noteon 02-04-2023 Family Medicine Office/Clinic Note HPI Staff Marley is a 67 year old female presenting to [facility] Establish Care: History: Any previous diagnosis: Aniety, [...] by Dr. Escobedo in June. will call [facility] for results. pt to return in June [...] TID, # 270 tab(s), Refills(s) 1, Pharmacy: [id number], 154.9, cm, 02/04/23 10:18:00 EDT, Height/Length Dosing, 75, kg, 02/04/23 10:18:00 EDT, Weight Dosing levothyroxine, 50 mcg = 1 tab(s), Oral, Daily, # 90 tab(s), Refills(s) 1, [facility], 154.9, cm, 02/04/23 10:18:00 EDT, Height/Length Dosing, 75, kg, 02/04/23 10:18:00 EDT, Weight Dosing potassium chloride, 20 mEq = 1 tab(s), Oral, BID, # 180 tab(s), Refills(s) 3, [facility], 154.9, cm, 09/10/22 10:27:00 EDT, Height/Length Dosing, 76.2, kg, 09/10/22 10:27:00 EDT, Weight Dosing quetiapine, 25 mg = 1 tab(s), Oral, Daily, # 90 tab(s), Refills(s) 1, [facility], 154.9, cm, 02/04/23 10:18:00 EDT, Height/Length Dosing, 75, kg, 02/04/23 10:18:00 EDT, Weight Dosing quetiapine, 50 mg = 1 tab(s), Oral, Daily, # 90 tab(s), Refills(s) 1, [facility], 154.9, cm, 02/04/23 10:18:00 EDT, Height/Length Dosing, 75, kg, 02/04/23 10:18:00 EDT, Weight Dosing senna, 8.6 mg = 1 tab(s), Oral, BID, # 60 tab(s), Refills(s) 3, [facility], 154.9, cm, 02/04/23 10:18:00 EDT, Height/Length [...] Immunizations Vaccine Date Status Comments SARS-CoV-2 (COVID-19) [id number] 03/09/2022 Recorded 2022-08-09: TPV65 influenza virus vaccine, inactivated 02/14/2022 Recorded SARS-CoV-2 (COVID-19) mRNA-1273 vaccine 03/29/2021 Recorded 2022-08-09: TPV65 influenza virus vaccine, inactivated 01/27/2021 Recorded SARS-CoV-2 ( (more content not included)... [facility] Comment on above: Result Comment: Elec tronically Signed By: Keya Lucas\.br\Date and Time Signed: 02/04/23 10:44 EDT Long Term Recordson 02-04 Long Term Records [id number]#1.00CD:127 [facility] Transfer Inon 02-04-2023 Transfer In [id number]#1.00CD:127 [facility] C Bldon 10-14-2022 C Bld Final No growth at 5 days. Normal [facility] Comment on above: Performed By: #### U CI #### [address] [address] .eGFRon 10-13-2022 Estimated GFR 54 mL/min/1.73m? Low >=60 [facility] Comment on above: Result Comment: [facility] have implemented the eGFR calculation [...] = years Performed By: #### E GFR ####[address] [address] CBC w/ Diffon 10-13-2022 Erythrocyte distribution width (RBC) [Ratio] 16.3 % High 11.6-14.8 [facility] Comment on above: Performed By: #### C D:[id number] #### [address] [address] Hematocrit (Bld) [Volume fraction] 31.7 % Low 36.0-46.0 [facility] Comment on above: Performed By: #### C D:[id number] #### [place] [address] Hemoglobin (Bld) [Mass/Vol] 10.6 g/dL Low 12.0-16.0 [facility] Comment on above: Performed By: #### C D:[id number] #### [place] [address] MCH (RBC) [Entitic mass] 31.5 pg Normal 27.0-35.0 [facility] Comment on above: Performed By: #### C D:[id number] #### [place] [address] MCHC 33.5 % Normal 31.0-37.0 [facility] Comment on above: Performed By: #### C D:[id number] #### [place] [address] MCV (RBC) [Entitic vol] 94.0 fL Normal 80.0-100.0 [facility] Comment on above: Performed By: #### C D:[id number] #### [place] [address] Platelet 216 x10*3/mcL Normal 150-350 [facility] Comment on above: Performed By: #### C D:[id number] #### [address] [address] Platelet mean volume (Bld) [Entitic vol] 8.7 fL Normal 6.7-10.6 [facility] Comment on above: Performed By: #### C D:[id number] #### [address] [address] RBC 3.37 x10*6/mcL Low 3.80-5.20 [facility] Comment on above: Performed By: #### C D:[id number] #### [address] [address] WBC 6.5 x10*3/mcL Normal 4.5-11.0 [facility] Comment on above: Performed By: #### C D:[id number] #### [address] [address] Diff Autoon 10-13-2022 Baso Absolute 0.0 x10*3/mcL Normal 0.0-0.2 [facility] Comment on above: Performed By: #### C D:[id number] #### [address] [address] Basophils/100 WBC (Bld) 0.6 % Normal 0.0-1.5 [facility] Comment on above: Performed By: #### C D:[id number] #### [address] [address] Eos Absolute 0.1 x10*3/mcL Normal 0.0-0.4 [facility] Comment on above: Performed By: #### C D:[id number] #### [address] [address] Eosinophils/100 WBC (Bld) 2.1 % Normal 0.0-5.4 [facility] Comment on above: Performed By: #### C D:[id number] #### [address] [address] Lymph Absolute 0.8 x10*3/mcL Low 1.0-4.8 [facility] Comment on above: Performed By: #### C D:[id number] #### [address] [address] Lymphocytes/100 WBC (Bld) 12.1 % Low 27.2-40.8 [facility] Comment on above: Performed By: #### C D:[id number] #### [address] [address] Labette Absolute 0.4 x10*3/mcL Normal 0.1-1.1 [facility] Comment on above: Performed By: #### C D:[id number] #### [address] [address] Monocytes/100 WBC (Bld) 6.2 % Normal 3.7-11.9 [facility] Comment on above: Performed By: #### C D:[id number] #### [address] [address] Neutro Absolute 5.1 x10*3/mcL Normal 1.8-7.7 [facility] Comment on above: Performed By: #### C D:[id number] #### [address] [address] Neutro Auto 79.0 % High 47.2-70.8 [facility] Comment on above: Performed By: #### C D:[id number] #### [address] [address] Inpatient Clinical Summaryon 10-13-2022 Inpatient Clinical Summary [address] [address] [place] [address] Clinical Summary Person Information Name: Marley Osborn Age: 66 Years : 1955 Sex: Female PCP: Jamil Lundberg MD Marital Status: Phone: PCP: [phone] Race: White Ethnicity: Not or Language: Azerbaijani Visit Id: Visit Reason: hypernatremia, AMS Speciality: Acuity: Enc Type: Inpatient Med Service: Medicine-General Arrival: 10/09/2022 08:56:04 Discharge: Dispo Type: Address: [address] [place] [address] Diagnosis: 1:Hypernatremia; 2:Schizophrenia; 3:Hypothermia; 4:Metabolic encephalopathy; 5:Chronic [...] range between ( 27.2 and 40.8 ) Labette Auto: 6.2 % -- Normal range between [...] range between ( 36.0 and 46.0 ) Labette Absolute: 0.4 x10 MCH: 31.5 pg -- [...] Creatine Phosphokinas (more content not included)... Normal [facility] Magnesiumon 10-13-2022 Magnesium [Mass/Vol] 1.8 mg/dL Normal 1.7-2.4 [facility] Comment on above: Performed By: #### C D:[id number] #### [place] [address] Nephrology Progress Noteon 0 10-13-2022 Nephrology Progress [...] Ativan, 1 mg= 0.5 mL, IV Push, [id number]-[id number] Times, PRN Benadryl, 25 mg, Oral, q6hr, [...] Agree with plan. Patient was transferred from [place] for hypernatremia, AMS, hypotension, hypothermia, UTI and multiple electrolyte imbalances. Sodium level on 10/04/22 was elevated at 150. Admission to [facility] ER her sodium was 158 at 13:25. [...] Kei Casas MD 10/13/22 14:56 EDT Normal [facility] Neurology Progress Noteon Neurology Progress Note Subjective Abnormal monoclonal: We will talk about possible clinical retirement where that is here are neurodiagnostic studies [...] Ativan, 1 mg= 0.5 mL, IV Push, x9fs-Kkpbghxs Times, PRN Benadryl, 25 mg, Oral, q6hr, [...] stable. Refractory schizophrenia. would prefer hospice and [place] 5. Chronic anticoagulation 6. Bradycardia 7. Encounter for palliative care Electronically signed by Cody Schulz MD 10/13/22 09:49 EDT Normal [facility] Progress Note-Nurseon 2022 Progress Note-Nurse report called to recieving facility. Electronically signed by Janell Patrick 10/13/22 15:54 EDT Normal [facility] Renal Panelon 10-13-2022 Albumin [Mass/Vol] 3.3 g/dL Normal 3.2-4.9 [facility] Comment on above: Performed By: #### B AUGER OPERATOR #### [address] [address] Anion gap [Moles/Vol] 10 mmol/L Normal 7-17 [facility] Comment on above: Performed By: #### B AUGER OPERATOR #### [place] [address] [place] [address] Calcium [Mass/Vol] 9.4 mg/dL Normal 8.5-10.3 [facility] Comment on above: Performed By: #### B AUGER OPERATOR #### [address] [address] Chloride [Moles/Vol] 108 mmol/L Normal 98-110 [facility] Comment on above: Performed By: #### B AUGER OPERATOR #### [address] [address] CO2 [Moles/Vol] 27 mmol/L Normal 22-32 [facility] Comment on above: Performed By: #### B AUGER OPERATOR #### [address] [address] Creatinine [Mass/Vol] 1.11 mg/dL High 0.44-1.03 [facility] Comment on above: Performed By: #### B AUGER OPERATOR #### [address] [address] Glucose [Mass/Vol] 114 mg/dL High 70-99 [facility] Comment on above: Performed By: #### B AUGER OPERATOR #### [address] [place] [address] Phosphate [Mass/Vol] 2.4 mg/dL Low 2.5-4.6 [facility] Comment on above: Performed By: #### B AUGER OPERATOR #### [address] [address] Potassium [Moles/Vol] 4.1 mmol/L Normal 3.4-4.8 [facility] Comment on above: Performed By: #### B AUGER OPERATOR #### [place] [address] [place] [address] Sodium [Moles/Vol] 141 mmol/L Normal 133-142 [facility] Comment on above: Performed By: #### B AUGER OPERATOR #### [address] [address] Urea nitrogen [Mass/Vol] 10 mg/dL Normal 8-26 [facility] Comment on above: Performed By: #### B AUGER OPERATOR #### [address] [address] Urea nitrogen/Creatinin e [Mass ratio] 9.0 mg/mg Low 10.0-20.0 [facility] Comment on above: Performed By: #### B AUGER OPERATOR #### [address] [address] .eGFRon 10-12-2022 Estimated GFR 50 mL/min/1.73m? Low >=60 [facility] Comment on above: Result Comment: [facility] have implemented the eGFR calculation [...] = years Performed By: #### E GFR ####[address] [address] Basic Metabolic Profileon Anion gap [Moles/Vol] 9 mmol/L Normal 7-17 [facility] Comment on above: Performed By: #### C D:[id number] #### [address] [address] Calcium [Mass/Vol] 9.2 mg/dL Normal 8.5-10.3 [facility] Comment on above: Performed By: #### C D:[id number] #### [address] [address] Chloride [Moles/Vol] 111 mmol/L High 98-110 [facility] Comment on above: Performed By: #### C D:[id number] #### [address] [address] CO2 [Moles/Vol] 29 mmol/L Normal 22-32 [facility] Comment on above: Performed By: #### C D:[id number] #### [address] [address] Creatinine [Mass/Vol] 1.19 mg/dL High 0.44-1.03 [facility] Comment on above: Performed By: #### C D:[id number] #### [address] [address] Glucose [Mass/Vol] 109 mg/dL High 70-99 [facility] Comment on above: Performed By: #### C D:[id number] #### [address] [address] Potassium [Moles/Vol] 4.2 mmol/L Normal 3.4-4.8 [facility] Comment on above: Performed By: #### C D:[id number] #### [address] [address] Sodium [Moles/Vol] 145 mmol/L High 133-142 [facility] Comment on above: Performed By: #### C D:[id number] #### [address] [address] Urea nitrogen [Mass/Vol] 16 mg/dL Normal 8-26 [facility] Comment on above: Performed By: #### C D:[id number] #### [facility] [address] [place] [address] Urea nitrogen/Creatinin e [Mass ratio] 13.4 mg/mg Normal 10.0-20.0 [facility] Comment on above: Performed By: #### C D:[id number] #### [facility] [address] [place] [address] Nephrology Progress Noteon 0 10-12-2022 Nephrology Progress [...] Ativan, 1 mg= 0.5 mL, IV Push, n5ro-Mdstkeqk Times, PRN Benadryl, 25 mg, Oral, q6hr, [...] at this time. Patient was transferred from [place] for hypernatremia, AMS, hypotension, hypothermia, UTI and multiple electrolyte imbalances. Sodium level on 10/04/22 was elevated at 150. Admission to [place] ER her sodium was 158 at 13:25. [...] Kei Casas MD 10/12/22 11:21 EDT Normal [facility] Neurology Progress Noteon Neurology Progress Note [...] Ativan, 1 mg= 0.5 mL, IV Push, z8oh-Xztylebl Times, PRN Benadryl, 25 mg, Oral, q6hr, [...] Cody Schulz MD 10/12/22 14:21 EDT Normal [facility] C Urineon 10-11-2022 C Urine Order [...] >=16 V Vancomycin S 1 V Normal [facility] Comment on above: Performed By: #### U RC ####[facility] (DEFAULT)[address] [place], [place] [address] [place] [address] Nephrology Progress Noteon 0 5-12-2023 Nephrology Progress Note Subjective Events noted. Patient [...] Ativan, 1 mg= 0.5 mL, IV Push, w2hm-Jvfmtxjp Times, PRN Benadryl, 25 mg, Oral, q6hr, [...] comfort measures only Patient was transferred from [place] for hypernatremia, AMS, hypotension, hypothermia, UTI and multiple electrolyte imbalances. Sodium level on 10/04/22 was elevated at 150. Admission to [place] ER her sodium was 158 at 13:25. [...] Kei Casas MD 10/11/22 11:57 EDT Normal [facility] Neurology Progress Noteon Neurology Progress Note [...] Ativan, 1 mg= 0.5 mL, IV Push, c7oj-Npiwgtta Times, PRN Benadryl, 25 mg, Oral, q6hr, [...] Cody Schulz MD 10/11/22 19:25 EDT Normal [facility] .eGFRon 10-10-2022 Estimated GFR 50 mL/min/1.73m? Low >=60 [facility] Comment on above: Result Comment: [facility] have implemented the eGFR calculation [...] Age = years Performed By: #### C D:[id number] #### [place] [address] Estimated GFR 48 mL/min/1.73m? Low >=60 [facility] Comment on above: Result Comment: [facility] have implemented the eGFR calculation [...] Age = years Performed By: #### C D:[id number] #### [address] [address] Estimated GFR 47 mL/min/1.73m? Low >=60 [facility] Comment on above: Result Comment: [facility] have implemented the eGFR calculation [...] years Performed By: #### C OMP #### [address] [address] Estimated GFR 39 mL/min/1.73m? Low >=60 [facility] Comment on above: Result Comment: [facility] have implemented the eGFR calculation [...] years Performed By: #### C OMP #### [address] [address] Estimated GFR 45 mL/min/1.73m? Low >=60 [facility] Comment on above: Result Comment: [facility] have implemented the eGFR calculation [...] Age = years Performed By: #### C D:[id number] #### [address] [address] B12/Folate Lvlon 10-10-2022 Cobalamin (Vitamin B12) [Mass/Vol] 793 pg/mL Normal 180-914 [facility] Comment on above: Performed By: #### B AUGER OPERATOR #### [address] [address] Folate Lvl 10.3 ng/mL Normal >=5.9 [facility] Comment on above: Result Comment: [facility] Technical Consultation has determined that deficient Folate concentrations are considered to be less than 4 ng/mL. Performed By: #### B AUGER OPERATOR #### [address] [address] Basic Metabolic Profileon Anion gap [Moles/Vol] 8 mmol/L Normal 7-17 [facility] Comment on above: Order Comment: until sodium normalized Performed By: #### C D:[id number] #### [address] [address] Calcium [Mass/Vol] 8.8 mg/dL Normal 8.5-10.3 [facility] Comment on above: Order Comment: until sodium normalized Performed By: #### C D:[id number] #### [address] [address] Chloride [Moles/Vol] 113 mmol/L High 98-110 [facility] Comment on above: Order Comment: until sodium normalized Performed By: #### C D:[id number] #### [address] [address] CO2 [Moles/Vol] 28 mmol/L Normal 22-32 [facility] Comment on above: Order Comment: until sodium normalized Performed By: #### C D:[id number] #### [address] [address] Creatinine [Mass/Vol] 1.20 mg/dL High 0.44-1.03 [facility] Comment on above: Order Comment: until sodium normalized Performed By: #### C D:[id number] #### [address] [address] Glucose [Mass/Vol] 112 mg/dL High 70-99 [facility] Comment on above: Order Comment: until sodium normalized Performed By: #### C D:[id number] #### [address] [address] Potassium [Moles/Vol] 3.4 mmol/L Normal 3.4-4.8 [facility] Comment on above: Order Comment: until sodium normalized Performed By: #### C D:[id number] #### [address] [address] Sodium [Moles/Vol] 146 mmol/L High 133-142 [facility] Comment on above: Order Comment: until sodium normalized Performed By: #### C D:[id number] #### [address] [address] Urea nitrogen [Mass/Vol] 26 mg/dL Normal 8-26 [facility] Comment on above: Order Comment: until sodium normalized Performed By: #### C D:[id number] #### [address] [address] Urea nitrogen/Creatinin e [Mass ratio] 21.7 mg/mg High 10.0-20.0 [facility] Comment on above: Order Comment: until sodium normalized Performed By: #### C D:[id number] #### [address] [address] Anion gap [Moles/Vol] 9 mmol/L Normal 7-17 [facility] Comment on above: Order Comment: until sodium normalized Performed By: #### C OMP #### [address] [address] Calcium [Mass/Vol] 9.1 mg/dL Normal 8.5-10.3 [facility] Comment on above: Order Comment: until sodium normalized Performed By: #### C OMP #### [address] [address] Chloride [Moles/Vol] 114 mmol/L High 98-110 [facility] Comment on above: Order Comment: until sodium normalized Performed By: #### C OMP #### [address] [address] CO2 [Moles/Vol] 29 mmol/L Normal 22-32 [facility] Comment on above: Order Comment: until sodium normalized Performed By: #### C OMP #### [address] [address] Creatinine [Mass/Vol] 1.25 mg/dL High 0.44-1.03 [facility] Comment on above: Order Comment: until sodium normalized Performed By: #### C OMP #### [address] [address] Glucose [Mass/Vol] 101 mg/dL High 70-99 [facility] Comment on above: Order Comment: until sodium normalized Performed By: #### C OMP #### [address] [address] Potassium [Moles/Vol] 3.6 mmol/L Normal 3.4-4.8 [facility] Comment on above: Order Comment: until sodium normalized Performed By: #### C OMP #### [address] [address] Sodium [Moles/Vol] 148 mmol/L High 133-142 [facility] Comment on above: Order Comment: until sodium normalized Performed By: #### C OMP #### [address] [address] Urea nitrogen [Mass/Vol] 27 mg/dL High 8-26 [facility] Comment on above: Order Comment: until sodium normalized Performed By: #### C OMP #### [address] [address] Urea nitrogen/Creatinin e [Mass ratio] 21.6 mg/mg High 10.0-20.0 [facility] Comment on above: Order Comment: until sodium normalized Performed By: #### C OMP #### [address] [address] Anion gap [Moles/Vol] 12 mmol/L Normal 7-17 [facility] Comment on above: Order Comment: until sodium normalized Performed By: #### C [id number] #### [address] [address] Calcium [Mass/Vol] 9.0 mg/dL Normal 8.5-10.3 [facility] Comment on above: Order Comment: until sodium normalized Performed By: #### C [id number] #### [address] [address] Chloride [Moles/Vol] 112 mmol/L High 98-110 [facility] Comment on above: Order Comment: until sodium normalized Performed By: #### C [id number] #### [address] [address] CO2 [Moles/Vol] 28 mmol/L Normal 22-32 [facility] Comment on above: Order Comment: until sodium normalized Performed By: #### C [id number] #### [address] [address] Creatinine [Mass/Vol] 1.46 mg/dL High 0.44-1.03 [facility] Comment on above: Order Comment: until sodium normalized Performed By: #### C [id number] #### [address] [address] Glucose [Mass/Vol] 111 mg/dL High 70-99 [facility] Comment on above: Order Comment: until sodium normalized Performed By: #### C [id number] #### [address] [address] Potassium [Moles/Vol] 3.6 mmol/L Normal 3.4-4.8 [facility] Comment on above: Order Comment: until sodium normalized Performed By: #### C [id number] #### [address] [address] Sodium [Moles/Vol] 148 mmol/L High 133-142 [facility] Comment on above: Order Comment: until sodium normalized Performed By: #### C [id number] #### [address] [address] Urea nitrogen [Mass/Vol] 26 mg/dL Normal 8-26 [facility] Comment on above: Order Comment: until sodium normalized Performed By: #### C [id number] #### [address] [address] Urea nitrogen/Creatinin e [Mass ratio] 17.8 mg/mg Normal 10.0-20.0 [facility] Comment on above: Order Comment: until sodium normalized Performed By: #### C [id number] #### [address] [address] Anion gap [Moles/Vol] 10 mmol/L Normal 7-17 [facility] Comment on above: Order Comment: until sodium normalized Performed By: #### R ENAL #### [address] [address] Calcium [Mass/Vol] 9.2 mg/dL Normal 8.5-10.3 [facility] Comment on above: Order Comment: until sodium normalized Performed By: #### R ENAL #### [address] [address] Chloride [Moles/Vol] 116 mmol/L High 98-110 [facility] Comment on above: Order Comment: until sodium normalized Performed By: #### R ENAL #### [address] [address] CO2 [Moles/Vol] 29 mmol/L Normal 22-32 [facility] Comment on above: Order Comment: until sodium normalized Performed By: #### R ENAL #### [address] [address] Creatinine [Mass/Vol] 1.29 mg/dL High 0.44-1.03 [facility] Comment on above: Order Comment: until sodium normalized Performed By: #### R ENAL #### [address] [address] Glucose [Mass/Vol] 105 mg/dL High 70-99 [facility] Comment on above: Order Comment: until sodium normalized Performed By: #### R ENAL #### [address] [address] Potassium [Moles/Vol] 3.7 mmol/L Normal 3.4-4.8 [facility] Comment on above: Order Comment: until sodium normalized Performed By: #### R ENAL #### [address] [address] Sodium [Moles/Vol] 151 mmol/L High 133-142 [facility] Comment on above: Order Comment: until sodium normalized Performed By: #### R ENAL #### [address] [address] Urea nitrogen [Mass/Vol] 28 mg/dL High 8-26 [facility] Comment on above: Order Comment: until sodium normalized Performed By: #### R ENAL #### [address] [address] Urea nitrogen/Creatinin e [Mass ratio] 21.7 mg/mg High 10.0-20.0 [facility] Comment on above: Order Comment: until sodium normalized Performed By: #### R ENAL #### [address] [address] CBC w/ Diffon 10-10-2022 Erythrocyte distribution width (RBC) [Ratio] 16.6 % High 11.6-14.8 [facility] Comment on above: Performed By: #### C BC ####[address] [address] Hematocrit (Bld) [Volume fraction] 30.2 % Low 36.0-46.0 [facility] Comment on above: Performed By: #### C BC ####[address] [address] Hemoglobin (Bld) [Mass/Vol] 10.0 g/dL Low 12.0-16.0 [facility] Comment on above: Performed By: #### C BC ####[address] [address] MCH (RBC) [Entitic mass] 31.2 pg Normal 27.0-35.0 [facility] Comment on above: Performed By: #### C BC ####[address] [address] MCHC 33.0 % Normal 31.0-37.0 [facility] Comment on above: Performed By: #### C BC ####[place] [id number] MCV (RBC) [Entitic vol] 94.6 fL Normal 80.0-100.0 [facility] Comment on above: Performed By: #### C BC ####[place] [id number] Platelet 211 x10*3/mcL Normal 150-350 [facility] Comment on above: Performed By: #### C BC ####[address] [address] Platelet mean volume (Bld) [Entitic vol] 8.5 fL Normal 6.7-10.6 [facility] Comment on above: Performed By: #### C BC ####[place] [id number] RBC 3.19 x10*6/mcL Low 3.80-5.20 [facility] Comment on above: Performed By: #### C BC ####[address] [address] WBC 7.6 x10*3/mcL Normal 4.5-11.0 [facility] Comment on above: Performed By: #### C BC ####[place] [id number] CPKon 10-10-2022 Creatine Phosphokinase 20 IU/L Low 38-234 [facility] Comment on above: Performed By: #### C [id number] #### [place] [id number] Consultation Note - Generico n 10-10-2022 Consultation Note - Generic Chief Complaint change in mentation. transfer from [facility] Reason for Consultation Palliative Care was [...] the phone. Patient is currently residing at [facility]. Patient arrived to [facility] emergency department at 1317 on 10/08 from [facility], with initial blood pressure of 195/91, heart [...] bradycardia. According to paperwork and report from [facility], with patient's underlying psychiatric disorders, baseline ranges from appropriate behavior to catatonia. Patient was admitted to [facility] on 09/28 due to worsening confusion and psychosis and in a catatonic state. In assessment dated 09/29, patient is noncommunicative does not cooperate, does not follow commands. Patient is seen in [facility] ICU and arouses to name [...] 4 episodes with subsequent admissions to either [facility] or [facility], with this being the worst episode. He [...] EXAM: XR (more content not included)... Normal [facility] Cortisolon 10-10-2022 Cortisol 3.3 mcg/dL Normal [facility] Comment on above: Result Comment: Norm als: 6.7 - 22.6 mcg/dL in A.M. < 10.0 mcg/dL in P.M. Performed By: #### C OMP #### [facility] [address] [place] [address] Cult,Urineon 10-10-2022 Cult,Urine Specimen Description .URINE Culture ENTEROCOCCUS FAECALIS >[id number] CFU/ML Report Status FINAL 10/10/2022 SUSCEPTIBILITY Organism ENTEROCOCCUS FAECALIS Method TIMOTHY Ampicillin <=2 SUSCEPTIBLE Ciprofloxacin >=8 RESISTANT Levofloxacin >=8 RESISTANT Nitrofurantoin <=16 SUSCEPTIBLE Tetracycline >=16 RESISTANT Vancomycin 1 SUSCEPTIBLE Susceptible [facility] Comment on above: Performed By: #### U RC #### [facility] [address] [place] [address] Regulatory Affairs Analyst: Jersey Dahl MD [facility] [address] [place] [address] Regulatory Affairs Analyst: Kayley Doll MD Diff Autoon 10-10-2022 Baso Absolute 0.1 x10*3/mcL Normal 0.0-0.2 [facility] Comment on above: Performed By: #### . Automated Diff ####[address] [address] Basophils/100 WBC (Bld) 0.8 % Normal 0.0-1.5 [facility] Comment on above: Performed By: #### . Automated Diff ####[address] [address] Eos Absolute 0.2 x10*3/mcL Normal 0.0-0.4 [facility] Comment on above: Performed By: #### . Automated Diff ####[address] [address] Eosinophils/100 WBC (Bld) 2.4 % Normal 0.0-5.4 [facility] Comment on above: Performed By: #### . Automated Diff ####[address] [address] Lymph Absolute 1.6 x10*3/mcL Normal 1.0-4.8 [facility] Comment on above: Performed By: #### . Automated Diff ####[address] [address] Lymphocytes/100 WBC (Bld) 20.4 % Low 27.2-40.8 [facility] Comment on above: Performed By: #### . Automated Diff ####[address] [address] Labette Absolute 0.6 x10*3/mcL Normal 0.1-1.1 [facility] Comment on above: Performed By: #### . Automated Diff ####[address] [address] Monocytes/100 WBC (Bld) 7.4 % Normal 3.7-11.9 [facility] Comment on above: Performed By: #### . Automated Diff ####[address] [address] Neutro Absolute 5.3 x10*3/mcL Normal 1.8-7.7 [facility] Comment on above: Performed By: #### . Automated Diff ####[place] [address] Neutro Auto 69.0 % Normal 47.2-70.8 [facility] Comment on above: Performed By: #### . Automated Diff ####[place] [id number] Free T4on 10-10-2022 Free T4 [Mass/Vol] 1.20 ng/dL High 0.61-1.12 [facility] Comment on above: Result Comment: Refe rence Ranges for Females: Females, 1st Trimester 0.52 ? 1.10 ng/dL Females, 2nd Trimester 0.45 ? 0.99 ng/dL Females, 3rd Trimester 0.48 - 0.95 ng/dL Performed By: #### B AUGER OPERATOR #### [place] [address] MRI Brain + MRA Head w/o Con [...] Electronically Signed in Other Vendor System) Normal [facility] Comment on above: Order Comment: ATIVA N 2 MG IV IF NEEDED Magnesiumon 10-10-2022 Magnesium [Mass/Vol] 2.2 mg/dL Normal 1.7-2.4 [facility] Comment on above: Performed By: #### M G ####[place] [address] [place] [address] Nephrology Progress Noteon 0 10-10-2022 Nephrology Progress [...] Ativan, 1 mg= 0.5 mL, IV Push, [id number] Times, PRN Benadryl, 25 mg, Oral, q6hr, [...] hrs during correction. Patient was transferred from [place] for hypernatremia, AMS, hypotension, hypothermia, UTI and multiple electrolyte imbalances. Sodium level on 10/04/22 was elevated at 150. Admission to [place] ER her sodium was 158 at 13:25. [...] Kei Casas MD 10/10/22 18:21 EDT Normal [facility] Osmol,Serumon 10-10-2022 Serum Osmolality 311 mOsm/kg High 280-295 [facility] Comment on above: Performed By: #### R ENAL #### [facility] [address] [place] [address] Renal Panelon 10-10-2022 Albumin [Mass/Vol] 3.4 g/dL Normal 3.2-4.9 [facility] Comment on above: Performed By: #### R ENAL #### [facility] [address] [place] [address] Anion gap [Moles/Vol] 11 mmol/L Normal 7-17 [facility] Comment on above: Performed By: #### R ENAL #### [address] [address] Calcium [Mass/Vol] 9.1 mg/dL Normal 8.5-10.3 [facility] Comment on above: Performed By: #### R ENAL #### [address] [address] Chloride [Moles/Vol] 113 mmol/L High 98-110 [facility] Comment on above: Performed By: #### R ENAL #### [address] [address] CO2 [Moles/Vol] 28 mmol/L Normal 22-32 [facility] Comment on above: Performed By: #### R ENAL #### [address] [address] Creatinine [Mass/Vol] 1.24 mg/dL High 0.44-1.03 [facility] Comment on above: Performed By: #### R ENAL #### [address] [address] Glucose [Mass/Vol] 93 mg/dL Normal 70-99 [facility] Comment on above: Performed By: #### R ENAL #### [address] [address] Phosphate [Mass/Vol] 2.4 mg/dL Low 2.5-4.6 [facility] Comment on above: Performed By: #### R ENAL #### [address] [address] Potassium [Moles/Vol] 3.6 mmol/L Normal 3.4-4.8 [facility] Comment on above: Performed By: #### R ENAL #### [address] [place] [address] Sodium [Moles/Vol] 148 mmol/L High 133-142 [facility] Comment on above: Performed By: #### R ENAL #### [address] [address] Urea nitrogen [Mass/Vol] 26 mg/dL Normal 8-26 [facility] Comment on above: Performed By: #### R ENAL #### [address] [address] Urea nitrogen/Creatinin e [Mass ratio] 21.0 mg/mg High 10.0-20.0 [facility] Comment on above: Performed By: #### R ENAL #### [address] [address] Speech Therapy Progress Note on 10-10-2022 Speech [...] by Hafsa Nguyen 10/10/22 14:50 EDT Normal [facility] TIBCon 10-10-2022 Iron [Mass/Vol] 69 ug/dL Normal 28-170 [facility] Comment on above: Performed By: #### C OMP #### [address] [address] Iron Sat 24.1 % Normal >=16.0 [facility] Comment on above: Performed By: #### C OMP #### [address] [address] TIBC 286 mcg/dL Normal 261-478 [facility] Comment on above: Performed By: #### C OMP #### [address] [address] Transferrin [Mass/Vol] 204 mg/dL Normal 192-382 [facility] Comment on above: Performed By: #### C OMP #### [address] [address] UPCRon 10-10-2022 Creatinine [Mass/Vol] 176.2 mg/dL Normal [facility] Comment on above: Order Comment: Order ed by Discern Rule for Protein-Creatinine Ratio. Result Comment: The reference range has not been established for this test on a random urine sample. The test result should be interpreted based on clinical context. Performed By: #### U CI #### [address] [address] Ur Protein 24 mg/dL High <=10 [facility] Comment on above: Order Comment: Order ed by Discern Rule for Protein-Creatinine Ratio. Performed By: #### U CI #### [address] [address] Urine Protein/Creatinine Ratio 0.14 Normal <=0.28 [facility] Comment on above: Order Comment: Order ed by Discern Rule for Protein-Creatinine Ratio. Performed By: #### U CI #### [address] [address] Uric Acidon 10-10-2022 Urate [Mass/Vol] 8.3 mg/dL High 2.6-8.0 [facility] Comment on above: Performed By: #### B AUGER OPERATOR #### [address] [address] Vitamin D 25-Hydroxy Totalon 10-10-2022 Vitamin D 25-Hydroxy Total 41 ng/mL Normal 30-100 [facility] Comment on above: Result Comment: Sharona min D 25-Hydroxy Total Reference Range: Deficient: < 20 Insufficient: 20 to < 30 Sufficient: 30 - 100 Upper Safety Limit: > 100 Performed By: #### B AUGER OPERATOR #### [address] [address] X SSTon 10-10-2022 Extra SST Collected Normal [facility] Comment on above: Performed By: #### C OMP #### [address] [address] XR Chest 1 Viewon 10-10-2022 XR Chest [...] Electronically Signed in Other Vendor System) Normal [facility] .UA Microscp Aon 10-09-2022 UA Bacteria Present Abnormal Absent [facility] Comment on above: Performed By: #### C [id number] #### [place] [address] UA CA Oxalate Present Abnormal Absent [facility] Comment on above: Performed By: #### C [id number] #### [place] [address] UA Mucus Present Abnormal Absent [facility] Comment on above: Performed By: #### C [id number] #### [place] [address] UA RBC Quant 39 /HPF High 0-5 [facility] Comment on above: Performed By: #### C [id number] #### [place] [id number] UA Squepi Cells Quant 1 /HPF Normal 0-29 [facility] Comment on above: Performed By: #### C [id number] #### [place] [id number] UA WBC Clmp Present Abnormal Absent [facility] Comment on above: Performed By: #### C [id number] #### [address] [address] UA WBC Quant 151 /HPF High 0-5 [facility] Comment on above: Performed By: #### C [id number] #### [address] [address] .eGFRon 10-09-2022 Estimated GFR 47 mL/min/1.73m? Low >=60 [facility] Comment on above: Result Comment: [facility] have implemented the eGFR calculation [...] Age = years Performed By: #### B AUGER OPERATOR #### [address] [address] Estimated GFR 49 mL/min/1.73m? Low >=60 [facility] Comment on above: Result Comment: [facility] have implemented the eGFR calculation [...] years Performed By: #### R ENAL #### [address] [address] Estimated GFR 45 mL/min/1.73m? Low >=60 [facility] Comment on above: Result Comment: [facility] have implemented the eGFR calculation [...] Age = years Performed By: #### B AUGER OPERATOR #### [address] [address] Estimated GFR 49 mL/min/1.73m? Low >=60 [facility] Comment on above: Result Comment: [facility] have implemented the eGFR calculation [...] = years Performed By: #### E GFR ####[facility] [place] [address] Estimated GFR 53 mL/min/1.73m? Low >=60 [facility] Comment on above: Result Comment: [facility] have implemented the eGFR calculation [...] years Performed By: #### R ENAL #### [facility] [address] [place] [address] GFR/1.73 sq M.predicted MDRD (S/P/Bld) [Vol rate/Area] mL/min/{1.73_m2} Normal >=60 [facility] Comment on above: Result Comment: [facility] have implemented the eGFR calculation [...] = years Performed By: #### E GFR ####[facility] [place] [address] Ammoniaon 10-09-2022 Ammonia (P) [Moles/Vol] 31 umol/L Normal 9-35 [facility] Comment on above: Performed By: #### C [id number] #### [address] [address] BNPon 10-09-2022 Natriuretic peptide B (Bld) [Mass/Vol] 88 pg/mL Normal 0-100 [facility] Comment on above: Order Comment: CHRISTIAN lambert came in while doing draws and saw BNP was marked as to be collected 10/10/2022 and had talked to pt's and asked for it to be collected today Performed By: #### C OMP #### [address] [address] Natriuretic peptide B (Bld) [Mass/Vol] 114 pg/mL High 0-100 [facility] Comment on above: Performed By: #### B AUGER OPERATOR #### [address] [address] Basic Metabolic Panelon 05 Anion gap [Moles/Vol] 7 mmol/L Low 9 - 17 mmol/L [facility] Calcium [Mass/Vol] 10.4 mg/dL 8.6 - 10.4 mg/dL [facility] Chloride [Moles/Vol] 117 mmol/L High 98 - 107 mmol/L [facility] CO2 [Moles/Vol] 32 mmol/L High 20 - 31 mmol/L [facility] Creatinine [Mass/Vol] 0.88 mg/dL 0.50 - 0.90 mg/dL [facility] GFR/1.73 sq M.predicted MDRD (S/P/Bld) [Vol rate/Area] - PINF [facility] Comment on above: These results [...] 118 mg/dL High 70 - 99 mg/dL [facility] Interpretation and review of laboratory results Abnormal [facility] Potassium [Moles/Vol] 3.4 mmol/L Low 3.7 - 5.3 mmol/L [facility] Sodium [Moles/Vol] 156 mmol/L High 135 - 144 mmol/L [facility] Urea nitrogen [Mass/Vol] 31 mg/dL High 8 - 23 mg/dL [facility] Urea nitrogen/Creatinin e (Bld) [Mass ratio] 35 High 9 - 20 [facility] Anion gap [Moles/Vol] 6 mmol/L Low 9 - 17 mmol/L [facility] Calcium [Mass/Vol] 10.4 mg/dL 8.6 - 10.4 mg/dL [facility] Chloride [Moles/Vol] 118 mmol/L High 98 - 107 mmol/L [facility] CO2 [Moles/Vol] 32 mmol/L High 20 - 31 mmol/L [facility] Creatinine [Mass/Vol] 0.91 mg/dL High 0.50 - 0.90 mg/dL [facility] [employer] GFR/1.73 sq M.predicted MDRD (S/P/Bld) [Vol rate/Area] - PINF [facility] Comment on above: These results [...] [Mass/Vol] 94 mg/dL 70 - 99 mg/dL [facility] Interpretation and review of laboratory results Abnormal [facility] Potassium [Moles/Vol] 3.5 mmol/L Low 3.7 - 5.3 mmol/L [facility] Sodium [Moles/Vol] 156 mmol/L High 135 - 144 mmol/L [facility] Urea nitrogen [Mass/Vol] 32 mg/dL High 8 - 23 mg/dL [facility] Urea nitrogen/Creatinin e (Bld) [Mass ratio] 35 High 9 - 20 [facility] Anion gap [Moles/Vol] 7 mmol/L Low 9 - 17 mmol/L [facility] Calcium [Mass/Vol] 10.3 mg/dL 8.6 - 10.4 mg/dL [facility] Chloride [Moles/Vol] 117 mmol/L High 98 - 107 mmol/L [facility] CO2 [Moles/Vol] 30 mmol/L 20 - 31 mmol/L [facility] Creatinine [Mass/Vol] 0.9 mg/dL 0.50 - 0.90 mg/dL [facility] [employer] [facility] GFR/1.73 sq M.predicted MDRD (S/P/Bld) [Vol rate/Area] - PINF [facility] Comment on above: These results [...] 140 mg/dL High 70 - 99 mg/dL [facility] Interpretation and review of laboratory results Abnormal [facility] Potassium [Moles/Vol] 3.0 mmol/L Low 3.7 - 5.3 mmol/L [facility] Sodium [Moles/Vol] 154 mmol/L High 135 - 144 mmol/L [facility] Urea nitrogen [Mass/Vol] 32 mg/dL High 8 - 23 mg/dL [facility] Urea nitrogen/Creatinin e (Bld) [Mass ratio] 36 High 9 - 20 [facility] Basic Metabolic Profon 10-09 Anion gap [Moles/Vol] 7 mmol/L Low 9-17 [facility] Comment on above: Performed By: #### L IPR #### [place] [address] [place] [address] Regulatory Affairs Analyst: Jersey Dahl MD #### CDP, CP #### [facility] [address] [place] [address] [place] [address] Regulatory Affairs Analyst: Kayley Doll MD BUN/CRE Ratio 35 High 9-20 [facility] Comment on above: Performed By: #### L IPR #### [address] [place] [address] Regulatory Affairs Analyst: Jersey Dahl MD #### CDP, CP #### [facility] [address] [place] [address] Regulatory Affairs Analyst: Kayley Doll MD Calcium [Mass/Vol] 10.4 mg/dL Normal 8.6-10.4 [facility] Comment on above: Performed By: #### L IPR #### [address] [place] [address] Regulatory Affairs Analyst: Jersey Dahl MD #### CDP, CP #### [facility] [address] [place] [address] [address] [place], [place] [id number] Regulatory Affairs Analyst: Kayley Doll MD Chloride [Moles/Vol] 117 mmol/L High 98-107 [facility] Comment on above: Performed By: #### L IPR #### [facility] [address] [place] [address] Regulatory Affairs Analyst: Jersey Dahl MD #### CDP, CP #### [facility] [address] [place] [address] [place] [address] Regulatory Affairs Analyst: Kalyey Doll MD CO2 [Moles/Vol] 32 mmol/L High 20-[address] [facility] Comment on above: Performed By: #### L IPR #### [address] [address] Regulatory Affairs Analyst: Jersey Dahl MD #### CDP, CP #### [address] [place], [place] [id number] Regulatory Affairs Analyst: Kayley Doll MD Creatinine [Mass/Vol] 0.88 mg/dL Normal 0.50-0.90 [facility] Comment on above: Performed By: #### L IPR #### [address] [place] [address] Regulatory Affairs Analyst: Jersey Dahl MD #### CDP, CP #### [address] [place], [place] [id number] Regulatory Affairs Analyst: Kayley Doll MD GFR/1.73 sq M.predicted among non-blacks MDRD (S/P/Bld) [Vol rate/Area] mL/min/{1.73_m2} Normal >60 [facility] Comment on above: Result Comment: These [...] secretion. Performed By: #### L IPR #### [address] [address] Regulatory Affairs Analyst: Jersey Dahl MD #### CDP, CP #### [facility] [address] [place] [address] Dr. [place], [place] [id number] Regulatory Affairs Analyst: Kayley Doll MD Glucose [Mass/Vol] 118 mg/dL High 70-99 [facility] Comment on above: Performed By: #### L IPR #### [address] [address] Regulatory Affairs Analyst: Jersey Dahl MD #### CDP, CP #### [address] [place], [place] [phone] Regulatory Affairs Analyst: Kayley Doll MD Potassium [Moles/Vol] 3.4 mmol/L Low 3.7-5.3 [facility] Comment on above: Performed By: #### L IPR #### [address] [address] Regulatory Affairs Analyst: Jersey Dahl MD #### CDP, CP #### [address] [place], [place] [id number] Regulatory Affairs Analyst: Kayley Doll MD Sodium [Moles/Vol] 156 mmol/L High 135-144 [facility] Comment on above: Performed By: #### L IPR #### [address] [address] Regulatory Affairs Analyst: Jersey Dahl MD #### CDP, CP #### [address] [place], [place] [phone] Regulatory Affairs Analyst: Kayley Doll MD Urea nitrogen [Mass/Vol] 31 mg/dL High 8-23 [facility] Comment on above: Performed By: #### L IPR #### [address], [place] [phone] Regulatory Affairs Analyst: Jersey Dahl MD #### CDP, CP #### [facility] [address] [place], [place] [phone] Regulatory Affairs Analyst: Kayley Doll MD Anion gap [Moles/Vol] 6 mmol/L Low 9-17 [facility] Comment on above: Performed By: #### B MP #### [facility] [address] [place], [place] [id number] Regulatory Affairs Analyst: Kayley Doll MD BUN/CRE Ratio 35 High 9-20 [facility] Comment on above: Performed By: #### B MP #### [facility] [address] [place], [place] [id number] Regulatory Affairs Analyst: Kayley Doll MD Calcium [Mass/Vol] 10.4 mg/dL Normal 8.6-10.4 [facility] Comment on above: Performed By: #### B MP #### [facility] [address] [place] [address] Regulatory Affairs Analyst: Kayley Doll MD Chloride [Moles/Vol] 118 mmol/L High 98-107 [facility] Comment on above: Performed By: #### B MP #### [facility] [address] [place], [place] [phone] Regulatory Affairs Analyst: Kayley Doll MD CO2 [Moles/Vol] 32 mmol/L High 20-[address] [facility] Comment on above: Performed By: #### B MP #### [facility] [address] [place] [address] Regulatory Affairs Analyst: Kayley Doll MD Creatinine [Mass/Vol] 0.91 mg/dL High 0.50-0.90 [facility] Comment on above: Performed By: #### B MP #### [facility] [address] [place], [place] [phone] Regulatory Affairs Analyst: Kayley Doll MD GFR/1.73 sq M.predicted among non-blacks MDRD (S/P/Bld) [Vol rate/Area] mL/min/{1.73_m2} Normal >60 [facility] Comment on above: Result Comment: These [...] secretion. Performed By: #### B MP #### [facility] [address] [place] [address] [place] [address] Regulatory Affairs Analyst: Kayley Doll MD Glucose [Mass/Vol] 94 mg/dL Normal 70-99 [facility] Comment on above: Performed By: #### B MP #### [facility] [address] [place] [address] [place], [place] [phone] Regulatory Affairs Analyst: Kayley Doll MD Potassium [Moles/Vol] 3.5 mmol/L Low 3.7-5.3 [facility] Comment on above: Performed By: #### B MP #### [address] [place], [place] [phone] Regulatory Affairs Analyst: Kayley Doll MD Sodium [Moles/Vol] 156 mmol/L High 135-144 [facility] Comment on above: Performed By: #### B MP #### [facility] [address] [place] [address] [place], [place] [phone] Regulatory Affairs Analyst: Kayley Doll MD Urea nitrogen [Mass/Vol] 32 mg/dL High 8-23 [facility] Comment on above: Performed By: #### B MP #### [facility] [address] [place] [address] [place] [address] Regulatory Affairs Analyst: Kayley Doll MD Anion gap [Moles/Vol] 7 mmol/L Low 9-17 [facility] Comment on above: Performed By: #### L IPR #### [address] [place] [address] Regulatory Affairs Analyst: Jersey Dahl MD #### CDP, CP #### [facility] [address] [place], [place] [phone] Regulatory Affairs Analyst: Kayley Doll MD BUN/CRE Ratio 36 High 9-20 [facility] Comment on above: Performed By: #### L IPR #### [address] [address] Regulatory Affairs Analyst: Jersey Dahl MD #### CDP, CP #### [facility] [address] [place] [address] [place], [place] [phone] Regulatory Affairs Analyst: Kayley Doll MD Calcium [Mass/Vol] 10.3 mg/dL Normal 8.6-10.4 [facility] Comment on above: Performed By: #### L IPR #### [address] [address] Regulatory Affairs Analyst: Jersey Dahl MD #### CDP, CP #### [facility] [address] [place] [address] [place]. [place], [place] [phone] Regulatory Affairs Analyst: Kayley Doll MD Chloride [Moles/Vol] 117 mmol/L High 98-107 [facility] Comment on above: Performed By: #### L IPR #### [address] [address] Regulatory Affairs Analyst: Jersey Dahl MD #### CDP, CP #### [facility] [address] [place] [address] [place], [place] [phone] Regulatory Affairs Analyst: Kayley Doll MD CO2 [Moles/Vol] 30 mmol/L Normal 20-[address] [facility] Comment on above: Performed By: #### L IPR #### [address] [address] Regulatory Affairs Analyst: Jersey Dahl MD #### CDP, CP #### [facility] [address] [place] [address] [place] [address] Regulatory Affairs Analyst: Kayley Doll MD Creatinine [Mass/Vol] 0.90 mg/dL Normal 0.50-0.90 [facility] Comment on above: Performed By: #### L IPR #### [address] [address] Regulatory Affairs Analyst: Jersey Dahl MD #### CDP, CP #### [address] [place] [address] Regulatory Affairs Analyst: Kayley Doll MD GFR/1.73 sq M.predicted among non-blacks MDRD (S/P/Bld) [Vol rate/Area] mL/min/{1.73_m2} Normal >60 [facility] Comment on above: Result Comment: These [...] secretion. Performed By: #### L IPR #### [address] [address] Regulatory Affairs Analyst: Jersey Dahl MD #### CDP, CP #### [facility] [address] [place] [address] [place] [address] Regulatory Affairs Analyst: Kayley Doll MD Glucose [Mass/Vol] 140 mg/dL High 70-99 [facility] Comment on above: Performed By: #### L IPR #### [address] [address] Regulatory Affairs Analyst: Jersey Dahl MD #### CDP, CP #### [address] [place], [place] [phone] Regulatory Affairs Analyst: Kayley Doll MD Potassium [Moles/Vol] 3.0 mmol/L Low 3.7-5.3 [facility] Comment on above: Performed By: #### L IPR #### [address] [address] Regulatory Affairs Analyst: Jersey Dahl MD #### CDP, CP #### [address] [place], [place] 2345283 Regulatory Affairs Analyst: Kayley Doll MD Sodium [Moles/Vol] 154 mmol/L High 135-144 [facility] Comment on above: Performed By: #### L IPR #### [address] [address] Regulatory Affairs Analyst: Jersey Dahl MD #### CDP, CP #### [address] [place], [place] [phone] Regulatory Affairs Analyst: Kayley Doll MD Urea nitrogen [Mass/Vol] 32 mg/dL High 8-23 [facility] Comment on above: Performed By: #### L IPR #### [address] [address] Regulatory Affairs Analyst: Jersey Dahl MD #### CDP, CP #### [address] [place], [place] [phone] Regulatory Affairs Analyst: Kayley Doll MD Anion gap [Moles/Vol] 10 mmol/L Normal 9-17 [facility] Comment on above: Performed By: #### L IPR #### [address] [address] Regulatory Affairs Analyst: Jersey Dahl MD #### CDP, CP #### [address] [place], [place] 2207283 Regulatory Affairs Analyst: Kayley Doll MD BUN/CRE Ratio 37 High 9-20 [facility] Comment on above: Performed By: #### L IPR #### [address] [address] Regulatory Affairs Analyst: Jersey Dahl MD #### CDP, CP #### [facility] [address] [place], [place] [phone] Regulatory Affairs Analyst: Kayley Doll MD Calcium [Mass/Vol] 10.3 mg/dL Normal 8.6-10.4 [facility] Comment on above: Performed By: #### L IPR #### [address] [address] Regulatory Affairs Analyst: Jersey Dahl MD #### CDP, CP #### [facility] [address] [place] [address] [place]. [place], [place] [phone] Regulatory Affairs Analyst: Kayley Doll MD Chloride [Moles/Vol] 116 mmol/L High 98-107 [facility] Comment on above: Performed By: #### L IPR #### [address] [address] Regulatory Affairs Analyst: Jersey Dahl MD #### CDP, CP #### [facility] [address] [place] [address] [place], [place] 3980583 Regulatory Affairs Analyst: Kayley Doll MD CO2 [Moles/Vol] 29 mmol/L Normal 20-[address] [facility] Comment on above: Performed By: #### L IPR #### [address] [address] Regulatory Affairs Analyst: Jersey Dahl MD #### CDP, CP #### [facility] [address] [place] [address] [place]. [place], [place] 0142383 Regulatory Affairs Analyst: Kayley Doll MD Creatinine [Mass/Vol] 0.94 mg/dL High 0.50-0.90 [facility] Comment on above: Performed By: #### L IPR #### [address] [address] Regulatory Affairs Analyst: Jersey Dahl MD #### CDP, CP #### [address] [place] [address] Regulatory Affairs Analyst: Kayley Doll MD GFR/1.73 sq M.predicted among non-blacks MDRD (S/P/Bld) [Vol rate/Area] mL/min/{1.73_m2} Normal >60 [facility] Comment on above: Result Comment: These [...] secretion. Performed By: #### L IPR #### [address] [address] Regulatory Affairs Analyst: Jersey Dahl MD #### CDP, CP #### [address] [place] [address] Regulatory Affairs Analyst: Kayley Doll MD Glucose [Mass/Vol] 144 mg/dL High 70-99 [facility] Comment on above: Performed By: #### L IPR #### [address] [address] Regulatory Affairs Analyst: Jersey Dahl MD #### CDP, CP #### [address] [place] [address] Regulatory Affairs Analyst: Kayley Doll MD Potassium [Moles/Vol] 3.3 mmol/L Low 3.7-5.3 [facility] Comment on above: Performed By: #### L IPR #### [address] [address] Regulatory Affairs Analyst: Jersey Dahl MD #### CDP, CP #### [facility] [address] [place], [place] [phone] Regulatory Affairs Analyst: Kayley Doll MD Sodium [Moles/Vol] 155 mmol/L High 135-144 [facility] Comment on above: Performed By: #### L IPR #### [address] [place], [place] 6260908 Regulatory Affairs Analyst: Jersey Dahl MD #### CDP, CP #### [facility] [address] [place], [place] 6947983 Regulatory Affairs Analyst: Kayley Doll MD Urea nitrogen [Mass/Vol] 35 mg/dL High 8-23 [facility] Comment on above: Performed By: #### L IPR #### [address] [address] Regulatory Affairs Analyst: Jresey Dahl MD #### CDP, CP #### [facility] [address] [place], [place] 3107183 Regulatory Affairs Analyst: Kayley Doll MD Basic Metabolic Profileon Anion gap [Moles/Vol] 10 mmol/L Normal 7-17 [facility] Comment on above: Order Comment: until sodium normalized Performed By: #### C D:[id number] ####[facility] [place] [address] Calcium [Mass/Vol] 9.1 mg/dL Normal 8.5-10.3 [facility] Comment on above: Order Comment: until sodium normalized Performed By: #### C D:[id number] ####[facility] [place] [address] Chloride [Moles/Vol] 117 mmol/L High 98-110 [facility] Comment on above: Order Comment: until sodium normalized Performed By: #### C D:[id number] ####[facility] [place] [address] CO2 [Moles/Vol] 28 mmol/L Normal 22-32 [facility] Comment on above: Order Comment: until sodium normalized Performed By: #### C D:[id number] ####[address] [address] Creatinine [Mass/Vol] 1.26 mg/dL High 0.44-1.03 [facility] Comment on above: Order Comment: until sodium normalized Performed By: #### C D:[id number] ####[address] [address] Glucose [Mass/Vol] 90 mg/dL Normal 70-99 [facility] Comment on above: Order Comment: until sodium normalized Performed By: #### C D:[id number] ####[address] [address] Potassium [Moles/Vol] 3.9 mmol/L Normal 3.4-4.8 [facility] Comment on above: Order Comment: until sodium normalized Performed By: #### C D:[id number] ####[address] [address] Sodium [Moles/Vol] 151 mmol/L High 133-142 [facility] Comment on above: Order Comment: until sodium normalized Performed By: #### C D:[id number] ####[address] [address] Urea nitrogen [Mass/Vol] 30 mg/dL High 8-26 [facility] Comment on above: Order Comment: until sodium normalized Performed By: #### C D:[id number] ####[address] [address] Urea nitrogen/Creatinin e [Mass ratio] 23.8 mg/mg High 10.0-20.0 [facility] Comment on above: Order Comment: until sodium normalized Performed By: #### C D:[id number] ####[address] [address] Anion gap [Moles/Vol] 10 mmol/L Normal 7-17 [facility] Comment on above: Order Comment: until sodium normalized Performed By: #### C D:[id number] #### [address] [address] Calcium [Mass/Vol] 9.2 mg/dL Normal 8.5-10.3 [facility] Comment on above: Order Comment: until sodium normalized Performed By: #### C D:[id number] #### [address] [address] Chloride [Moles/Vol] 116 mmol/L High 98-110 [facility] Comment on above: Order Comment: until sodium normalized Performed By: #### C D:[id number] #### [address] [address] CO2 [Moles/Vol] 29 mmol/L Normal 22-32 [facility] Comment on above: Order Comment: until sodium normalized Performed By: #### C D:[id number] #### [address] [address] Creatinine [Mass/Vol] 1.21 mg/dL High 0.44-1.03 [facility] Comment on above: Order Comment: until sodium normalized Performed By: #### C D:[id number] #### [address] [address] Glucose [Mass/Vol] 81 mg/dL Normal 70-99 [facility] Comment on above: Order Comment: until sodium normalized Performed By: #### C D:[id number] #### [address] [address] Potassium [Moles/Vol] 4.0 mmol/L Normal 3.4-4.8 [facility] Comment on above: Order Comment: until sodium normalized Performed By: #### C D:[id number] #### [address] [address] Sodium [Moles/Vol] 151 mmol/L High 133-142 [facility] Comment on above: Order Comment: until sodium normalized Performed By: #### C D:[id number] #### [address] [address] Urea nitrogen [Mass/Vol] 29 mg/dL High 8-26 [facility] Comment on above: Order Comment: until sodium normalized Performed By: #### C D:[id number] #### [address] [address] Urea nitrogen/Creatinin e [Mass ratio] 24.0 mg/mg High 10.0-20.0 [facility] Comment on above: Order Comment: until sodium normalized Performed By: #### C D:[id number] #### [address] [address] Anion gap [Moles/Vol] 9 mmol/L Normal 7-17 [facility] Comment on above: Performed By: #### U CI #### [address] [address] Calcium [Mass/Vol] 9.4 mg/dL Normal 8.5-10.3 [facility] Comment on above: Performed By: #### U CI #### [address] [address] Chloride [Moles/Vol] 116 mmol/L High 98-110 [facility] Comment on above: Performed By: #### U CI #### [address] [address] CO2 [Moles/Vol] 30 mmol/L Normal 22-32 [facility] Comment on above: Performed By: #### U CI #### [address] [address] Creatinine [Mass/Vol] 1.31 mg/dL High 0.44-1.03 [facility] Comment on above: Performed By: #### U CI #### [address] [address] Glucose [Mass/Vol] 94 mg/dL Normal 70-99 [facility] Comment on above: Performed By: #### U CI #### [address] [address] Potassium [Moles/Vol] 4.0 mmol/L Normal 3.4-4.8 [facility] Comment on above: Performed By: #### U CI #### [address] [address] Sodium [Moles/Vol] 151 mmol/L High 133-142 [facility] Comment on above: Performed By: #### U CI #### [address] [address] Urea nitrogen [Mass/Vol] 31 mg/dL High 8-26 [facility] Comment on above: Performed By: #### U CI #### [address] [address] Urea nitrogen/Creatinin e [Mass ratio] 23.7 mg/mg High 10.0-20.0 [facility] Comment on above: Performed By: #### U CI #### [address] [address] Anion gap [Moles/Vol] 9 mmol/L Normal 7-17 [facility] Comment on above: Order Comment: until sodium normalized Performed By: #### C D:[id number] #### [address] [address] Calcium [Mass/Vol] 9.2 mg/dL Normal 8.5-10.3 [facility] Comment on above: Order Comment: until sodium normalized Performed By: #### C D:[id number] #### [address] [address] Chloride [Moles/Vol] 116 mmol/L High 98-110 [facility] Comment on above: Order Comment: until sodium normalized Performed By: #### C D:[id number] #### [address] [address] CO2 [Moles/Vol] 29 mmol/L Normal 22-32 [facility] Comment on above: Order Comment: until sodium normalized Performed By: #### C D:[id number] #### [address] [address] Creatinine [Mass/Vol] 1.22 mg/dL High 0.44-1.03 [facility] Comment on above: Order Comment: until sodium normalized Performed By: #### C D:[id number] #### [address] [address] Glucose [Mass/Vol] 145 mg/dL High 70-99 [facility] Comment on above: Order Comment: until sodium normalized Performed By: #### C D:[id number] #### [address] [address] Potassium [Moles/Vol] 3.9 mmol/L Normal 3.4-4.8 [facility] Comment on above: Order Comment: until sodium normalized Performed By: #### C D:[id number] #### [address] [address] Sodium [Moles/Vol] 150 mmol/L High 133-142 [facility] Comment on above: Order Comment: until sodium normalized Performed By: #### C D:[id number] #### [address] [address] Urea nitrogen [Mass/Vol] 30 mg/dL High 8-26 [facility] Comment on above: Order Comment: until sodium normalized Performed By: #### C D:[id number] #### [address] [address] Urea nitrogen/Creatinin e [Mass ratio] 24.6 mg/mg High 10.0-20.0 [facility] Comment on above: Order Comment: until sodium normalized Performed By: #### C D:[id number] #### [address] [address] Anion gap [Moles/Vol] 11 mmol/L Normal 7-17 [facility] Comment on above: Order Comment: until sodium normalized Performed By: #### C D:[id number] #### [address] [address] Calcium [Mass/Vol] 9.5 mg/dL Normal 8.5-10.3 [facility] Comment on above: Order Comment: until sodium normalized Performed By: #### C D:[id number] #### [address] [address] Chloride [Moles/Vol] 117 mmol/L High 98-110 [facility] Comment on above: Order Comment: until sodium normalized Performed By: #### C D:[id number] #### [address] [address] CO2 [Moles/Vol] 28 mmol/L Normal 22-32 [facility] Comment on above: Order Comment: until sodium normalized Performed By: #### C D:[id number] #### [address] [address] Creatinine [Mass/Vol] 1.14 mg/dL High 0.44-1.03 [facility] Comment on above: Order Comment: until sodium normalized Performed By: #### C D:[id number] #### [address] [address] Glucose [Mass/Vol] 99 mg/dL Normal 70-99 [facility] Comment on above: Order Comment: until sodium normalized Performed By: #### C D:[id number] #### [address] [address] Potassium [Moles/Vol] 3.4 mmol/L Normal 3.4-4.8 [facility] Comment on above: Order Comment: until sodium normalized Performed By: #### C D:[id number] #### [address] [address] Sodium [Moles/Vol] 153 mmol/L High 133-142 [facility] Comment on above: Order Comment: until sodium normalized Performed By: #### C D:[id number] #### [address] [address] Urea nitrogen [Mass/Vol] 33 mg/dL High 8-26 [facility] Comment on above: Order Comment: until sodium normalized Performed By: #### C D:[id number] #### [address] [address] Urea nitrogen/Creatinin e [Mass ratio] 28.9 mg/mg High 10.0-20.0 [facility] Comment on above: Order Comment: until sodium normalized Performed By: #### C D:[id number] #### [address] [address] Blood Gas Arterialon 023 Base Excess Art 6.0 mEq/L High -2.0-2.0 [facility] Comment on above: Performed By: #### C D:[id number] #### [address] [address] BG Alberto Test Satisfactory Normal [facility] Comment on above: Performed By: #### C D:[id number] #### [address] [address] BG Collection Site Rt Rad Normal [facility] Comment on above: Performed By: #### C D:[id number] #### [address] [address] Carboxyhemoglobin Arterial 1.0 % total Normal 0.0-2.0 [facility] Comment on above: Performed By: #### C D:[id number] #### [address] [address] Hb Totl Arterial 9.3 g% Low 12.0-16.0 [facility] Comment on above: Performed By: #### C D:[id number] #### [address] [address] HbO2 Art 97 % total Normal 94-100 [facility] Comment on above: Performed By: #### C D:[id number] #### [address] [address] HCO3 (Bld) [Moles/Vol] 32 mmol/L High 21-27 [facility] Comment on above: Performed By: #### C D:[id number] #### [address] [address] Met Hb Arterial 0.6 % total Normal 0.0-2.0 [facility] Comment on above: Performed By: #### C D:[id number] #### [address] [address] O2 Meth O2 Normal [facility] Comment on above: Performed By: #### C D:[id number] #### [address] [address] pCO2 Art 55 mmHg High 35-45 [facility] Comment on above: Performed By: #### C D:[id number] #### [address] [address] pH Art 7.38 Normal 7.35-7.45 [facility] Comment on above: Performed By: #### C D:[id number] #### [address] [address] pO2 Art 112 mmHg High 80-100 [facility] Comment on above: Performed By: #### C D:[id number] #### [address] [address] CBC w/ Diffon 10-09-2022 Erythrocyte distribution width (RBC) [Ratio] 16.4 % High 11.6-14.8 [facility] Comment on above: Performed By: #### B AUGER OPERATOR #### [address] [address] Hematocrit (Bld) [Volume fraction] 29.2 % Low 36.0-46.0 [facility] Comment on above: Performed By: #### B AUGER OPERATOR #### [address] [address] Hemoglobin (Bld) [Mass/Vol] 9.7 g/dL Low 12.0-16.0 [facility] Comment on above: Performed By: #### B AUGER OPERATOR #### [address] [address] MCH (RBC) [Entitic mass] 31.3 pg Normal 27.0-35.0 [facility] Comment on above: Performed By: #### B AUGER OPERATOR #### [address] [address] MCHC 33.2 % Normal 31.0-37.0 [facility] Comment on above: Performed By: #### B AUGER OPERATOR #### [place] [id number] MCV (RBC) [Entitic vol] 94.1 fL Normal 80.0-100.0 [facility] Comment on above: Performed By: #### B AUGER OPERATOR #### [place] [id number] Platelet 187 x10*3/mcL Normal 150-350 [facility] Comment on above: Performed By: #### B AUGER OPERATOR #### [place] [id number] Platelet mean volume (Bld) [Entitic vol] 8.5 fL Normal 6.7-10.6 [facility] Comment on above: Performed By: #### B AUGER OPERATOR #### [place] [id number] RBC 3.10 x10*6/mcL Low 3.80-5.20 [facility] Comment on above: Performed By: #### B AUGER OPERATOR #### [address] [address] WBC 5.8 x10*3/mcL Normal 4.5-11.0 [facility] Comment on above: Performed By: #### B AUGER OPERATOR #### [place] [id number] CMPon 10-09-2022 Albumin [Mass/Vol] 3.2 g/dL Normal 3.2-4.9 [facility] Comment on above: Performed By: #### C OMP #### [place] [id number] Albumin/Globulin [Mass ratio] 1.1 {ratio} Normal 1.1-2.2 [facility] Comment on above: Performed By: #### C OMP #### [address] [address] Alk Phos 75 IU/L Normal 32-91 [facility] Comment on above: Performed By: #### C OMP #### [address] [address] ALT [Catalytic activity/Vol] 27 U/L Normal 14-54 [facility] Comment on above: Performed By: #### C OMP #### [address] [address] Anion gap [Moles/Vol] 10 mmol/L Normal 7-17 [facility] Comment on above: Performed By: #### C OMP #### [address] [address] AST [Catalytic activity/Vol] 24 U/L Normal 15-41 [facility] Comment on above: Performed By: #### C OMP #### [address] [address] Bili Total 0.9 mg/dL Normal 0.3-1.2 [facility] Comment on above: Performed By: #### C OMP #### [address] [address] Calcium [Mass/Vol] 9.4 mg/dL Normal 8.5-10.3 [facility] Comment on above: Performed By: #### C OMP #### [address] [address] Chloride [Moles/Vol] 117 mmol/L High 98-110 [facility] Comment on above: Performed By: #### C OMP #### [address] [address] CO2 [Moles/Vol] 28 mmol/L Normal 22-32 [facility] Comment on above: Performed By: #### C OMP #### [address] [address] Creatinine [Mass/Vol] 0.95 mg/dL Normal 0.44-1.03 [facility] Comment on above: Performed By: #### C OMP #### [address] [address] Glucose [Mass/Vol] 150 mg/dL High 70-99 [facility] Comment on above: Performed By: #### C OMP #### [address] [address] Potassium [Moles/Vol] 3.3 mmol/L Low 3.4-4.8 [facility] Comment on above: Performed By: #### C OMP #### [address] [address] Protein [Mass/Vol] 6.1 g/dL Low 6.5-8.1 [facility] Comment on above: Performed By: #### C OMP #### [address] [address] Sodium [Moles/Vol] 152 mmol/L High 133-142 [facility] Comment on above: Performed By: #### C OMP #### [address] [address] Urea nitrogen [Mass/Vol] 33 mg/dL High 8-26 [facility] Comment on above: Performed By: #### C OMP #### [address] [address] Urea nitrogen/Creatinin e [Mass ratio] 34.7 mg/mg High 10.0-20.0 [facility] Comment on above: Performed By: #### C OMP #### [address] [address] Diff Autoon 10-09-2022 Baso Absolute 0.0 x10*3/mcL Normal 0.0-0.2 [facility] Comment on above: Performed By: #### . Automated Diff ####[address] [address] Basophils/100 WBC (Bld) 0.6 % Normal 0.0-1.5 [facility] Comment on above: Performed By: #### . Automated Diff ####[address] [address] Eos Absolute 0.1 x10*3/mcL Normal 0.0-0.4 [facility] Comment on above: Performed By: #### . Automated Diff ####[address] [address] Eosinophils/100 WBC (Bld) 2.5 % Normal 0.0-5.4 [facility] Comment on above: Performed By: #### . Automated Diff ####[address] [address] Lymph Absolute 0.8 x10*3/mcL Low 1.0-4.8 [facility] Comment on above: Performed By: #### . Automated Diff ####[address] [address] Lymphocytes/100 WBC (Bld) 14.5 % Low 27.2-40.8 [facility] Comment on above: Performed By: #### . Automated Diff ####[address] [address] Labette Absolute 0.3 x10*3/mcL Normal 0.1-1.1 [facility] Comment on above: Performed By: #### . Automated Diff ####[address] [address] Monocytes/100 WBC (Bld) 5.8 % Normal 3.7-11.9 [facility] Comment on above: Performed By: #### . Automated Diff ####[address] [address] Neutro Absolute 4.5 x10*3/mcL Normal 1.8-7.7 [facility] Comment on above: Performed By: #### . Automated Diff ####[address] [address] Neutro Auto 76.6 % High 47.2-70.8 [facility] Comment on above: Performed By: #### . Automated Diff ####[address] [address] Lactic Acid, Initial w/Rflx 3 Houron 10-09-2022 Lactic Acid, Initial 1.4 mmol/L Normal 0.5-2.0 [facility] Comment on above: Performed By: #### C [id number] ####[address] [address] MRSA, PCRon 10-09-2022 LAB ONLY Result Called? No Normal [facility] Comment on above: Performed By: #### B AUGER OPERATOR #### [place] [id number] Methicillin Resistant Staph aurus(MRSA) Not detected Normal Not Detected [facility] Comment on above: Result Comment: Mut ations or polymorphisms in primer or probe binding regions may affect detection of new or unknown MRSA variants resulting in a false negative. The Vaprema Xpert MRSA Assay is a qualitative in [...] to the clinician. Performed By: #### B AUGER OPERATOR #### [address] [address] Magnesiumon 10-09-2022 Magnesium [Mass/Vol] 1.5 mg/dL Low 1.7-2.4 [facility] Comment on above: Performed By: #### C [id number] #### [address] [address] Myoglobinon 10-09-2022 Myoglobin [Mass/Vol] 37.1 ng/mL Normal [facility] Comment on above: Performed By: #### C OMP #### [address] [address] Osmol,Serumon 10-09-2022 Serum Osmolality 319 mOsm/kg High 280-295 [facility] Comment on above: Performed By: #### C [id number] #### [address] [address] PTon 10-09-2022 INR Coag (PPP) [Relative time] 1.1 {INR} Normal <=3.5 [facility] Comment on above: Result Comment: INR has no normal range. INR Therapeutic range is: 2.0-3.0 (AF, CVA, TIAs, DVT prophylaxis, acute DVT) 2.5-3.5 ([facility] heart valves, recurrent thrombosis/emboli) Performed By: #### C [id number] #### [address] [address] PT Coag (PPP) [Time] 11.5 s Normal 9.3-11.9 [facility] Comment on above: Performed By: #### C [id number] #### [address] [address] PTTon 10-09-2022 aPTT Coag (Bld) [Time] 29.1 s Normal 20.6-29.2 [facility] Comment on above: Performed By: #### C OMP #### [address] [address] Phosphoruson 10-09-2022 Phosphate [Mass/Vol] 2.8 mg/dL Normal 2.5-4.6 [facility] Comment on above: Performed By: #### C [id number] #### [address] [address] TSHon 10-09-2022 TSH Qn 0.97 m[IU]/L Normal 0.45-5.33 [facility] Comment on above: Result Comment: Refe rence Ranges for individuals from to 18 years of age were obtained from The Inna Asencio Handbook (20 ed) published by [facility]. Reference Ranges for Females: Females, 1st Trimester 0.05 ? 3.7 uIU/mL Females, 2nd Trimester 0.31 ? 4.35 uIU/mL Females, 3rd Trimester 0.41 ? 5.18 uIU/mL Performed By: #### C [id number] #### [address] [address] Troponin-Ion 10-09-2022 Troponin I.cardiac [Mass/Vol] ng/mL Normal 0.00-0.03 [facility] Comment on above: Result Comment: An i ncreased Troponin-I value, in the absence of myocardial ischemia, may indicate other etiologies of cardiac damage. Performed By: #### C [id number] #### [address] [address] U Lyteson 10-09-2022 Chloride [Moles/Vol] 175 mmol/L Normal [facility] Comment on above: Performed By: #### C OMP #### [address] [address] Potassium [Moles/Vol] 62.0 mmol/L Normal [facility] Comment on above: Performed By: #### C OMP #### [address] [address] Sodium [Moles/Vol] 150 mmol/L Normal [facility] Comment on above: Performed By: #### C OMP #### [address] [address] U Osmolon 10-09-2022 Urine Osmolality 593 mOsm/kg H2O Normal 50-1200 [facility] Comment on above: Order Comment: Pleas e obtain urine and serum testing together. Place Ell[place], drain bladder, then obtain sample. Performed By: #### B AUGER OPERATOR #### [address] [address] UA w Culture if Indon 2022 Color (U) Yellow Normal [facility] Comment on above: Performed By: #### U CI #### [address] [place] [address] Ketones Ql (U) 10 mg/dL Abnormal Negative [facility] Comment on above: Performed By: #### U CI #### [address] [place] [address] UA Blood Negative Normal Negative [facility] Comment on above: Performed By: #### U CI #### [address] [place] [address] UA Clarity Turbid Normal [facility] Comment on above: Performed By: #### U CI #### [address] [place] [address] UA Glucose Normal Normal Negative [facility] Comment on above: Performed By: #### U CI #### [address] [place] [address] UA Leukocyte Esterase 500 Abnormal Negative [facility] Comment on above: Performed By: #### U CI #### [address] [place] [address] UA Nitrite Negative Normal Negative [facility] Comment on above: Performed By: #### U CI #### [address] [place] [address] UA pH 5.0 Normal 4.5 - 7.8 [facility] Comment on above: Performed By: #### U CI #### [address] [place] [address] UA Protein 30 mg/dL Abnormal Negative [facility] Comment on above: Performed By: #### U CI #### [address] [place] [address] UA Source Catheter Normal [facility] Comment on above: Performed By: #### U CI #### [address] [place] [address] UA Spec Grav 1.026 Normal 1.003-1.035 [facility] Comment on above: Performed By: #### U CI #### [facility] [address] [place] [address] UA Urobilinogen Normal Normal 0.2 - 1.0 [facility] Comment on above: Performed By: #### U CI #### [facility] [address] [place] [address] Urobilinogen (U) [Mass/Vol] Negative Normal Negative [facility] Comment on above: Performed By: #### U CI #### [facility] [address] [place] [address] XR Chest 1 Viewon 10-09-2022 XR Chest [...] Electronically Signed in Other Vendor System) Normal [facility] Basic Metabolic Panelon 05-0 Anion gap [Moles/Vol] 10 mmol/L 9 - 17 mmol/L [facility] Calcium [Mass/Vol] 10.3 mg/dL 8.6 - 10.4 mg/dL [facility] Chloride [Moles/Vol] 116 mmol/L High 98 - 107 mmol/L [facility] CO2 [Moles/Vol] 29 mmol/L 20 - 31 mmol/L [facility] Creatinine [Mass/Vol] 0.94 mg/dL High 0.50 - 0.90 mg/dL [facility] GFR/1.73 sq M.predicted MDRD (S/P/Bld) [Vol rate/Area] - PINF [facility] Comment on above: These results [...] 144 mg/dL High 70 - 99 mg/dL [facility] Interpretation and review of laboratory results Abnormal [facility] Potassium [Moles/Vol] 3.3 mmol/L Low 3.7 - 5.3 mmol/L [facility] Sodium [Moles/Vol] 155 mmol/L High 135 - 144 mmol/L [facility] Urea nitrogen [Mass/Vol] 35 mg/dL High 8 - 23 mg/dL [facility] Urea nitrogen/Creatinin e (Bld) [Mass ratio] 37 High 9 - 20 [facility] Anion gap [Moles/Vol] 10 mmol/L 9 - 17 mmol/L [facility] Calcium [Mass/Vol] 10.5 mg/dL High 8.6 - 10.4 mg/dL [facility] Chloride [Moles/Vol] 116 mmol/L High 98 - 107 mmol/L [facility] CO2 [Moles/Vol] 29 mmol/L 20 - 31 mmol/L [facility] Creatinine [Mass/Vol] 0.87 mg/dL 0.50 - 0.90 mg/dL [facility] GFR/1.73 sq M.predicted MDRD (S/P/Bld) [Vol rate/Area] - PINF [facility] Comment on above: These results [...] 136 mg/dL High 70 - 99 mg/dL [facility] Interpretation and review of laboratory results Abnormal [facility] Potassium [Moles/Vol] 3.4 mmol/L Low 3.7 - 5.3 mmol/L [facility] Sodium [Moles/Vol] 155 mmol/L High 135 - 144 mmol/L [facility] Urea nitrogen [Mass/Vol] 35 mg/dL High 8 - 23 mg/dL [facility] Urea nitrogen/Creatinin e (Bld) [Mass ratio] 40 High 9 - 20 [facility] Anion gap [Moles/Vol] 11 mmol/L 9 - 17 mmol/L [facility] Calcium [Mass/Vol] 10.8 mg/dL High 8.6 - 10.4 mg/dL [facility] Chloride [Moles/Vol] 113 mmol/L High 98 - 107 mmol/L [facility] CO2 [Moles/Vol] 28 mmol/L 20 - 31 mmol/L [facility] Creatinine [Mass/Vol] 0.94 mg/dL High 0.50 - 0.90 mg/dL [facility] GFR/1.73 sq M.predicted MDRD (S/P/Bld) [Vol rate/Area] - PINF [facility] Comment on above: These results [...] 129 mg/dL High 70 - 99 mg/dL [facility] Interpretation and review of laboratory results Abnormal [facility] Potassium [Moles/Vol] 3.5 mmol/L Low 3.7 - 5.3 mmol/L [facility] Sodium [Moles/Vol] 152 mmol/L High 135 - 144 mmol/L [facility] Urea nitrogen [Mass/Vol] 38 mg/dL High 8 - 23 mg/dL [facility] Urea nitrogen/Creatinin e (Bld) [Mass ratio] 40 High 9 - 20 [facility] Anion gap [Moles/Vol] 9 mmol/L 9 - 17 mmol/L [facility] Calcium [Mass/Vol] 10.7 mg/dL High 8.6 - 10.4 mg/dL [facility] Chloride [Moles/Vol] 118 mmol/L High 98 - 107 mmol/L [facility] CO2 [Moles/Vol] 30 mmol/L 20 - 31 mmol/L [facility] Creatinine [Mass/Vol] 0.97 mg/dL High 0.50 - 0.90 mg/dL [facility] GFR/1.73 sq M.predicted MDRD (S/P/Bld) [Vol rate/Area] - PINF [facility] Comment on above: These results [...] [Mass/Vol] 78 mg/dL 70 - 99 mg/dL [facility] Interpretation and review of laboratory results Abnormal [facility] Potassium [Moles/Vol] 4.1 mmol/L 3.7 - 5.3 mmol/L [facility] Sodium [Moles/Vol] 157 mmol/L High 135 - 144 mmol/L [facility] Urea nitrogen [Mass/Vol] 37 mg/dL High 8 - 23 mg/dL [facility] Urea nitrogen/Creatinin e (Bld) [Mass ratio] 38 High 9 - 20 [facility] Basic Metabolic Profon 10-08 Anion gap [Moles/Vol] 10 mmol/L Normal - [facility] Comment on above: Performed By: #### L IPR #### [address] [address] Regulatory Affairs Analyst: Jersey Dahl MD #### CDP, CP #### [facility] [address] [place], [place] [id number] Regulatory Affairs Analyst: Kayley Doll MD BUN/CRE Ratio 40 High 9-20 [facility] Comment on above: Performed By: #### L IPR #### [address] [address] Regulatory Affairs Analyst: Jersey Dahl MD #### CDP, CP #### [facility] [address] [place], [place] [phone] Regulatory Affairs Analyst: Kayley Doll MD Calcium [Mass/Vol] 10.5 mg/dL High 8.6-10.4 [facility] Comment on above: Performed By: #### L IPR #### [address] [address] Regulatory Affairs Analyst: Jersey Dahl MD #### CDP, CP #### [facility] [address] [place] [address] [place], [place] [id number] Regulatory Affairs Analyst: Kayley Doll MD Chloride [Moles/Vol] 116 mmol/L High 98-107 [facility] Comment on above: Performed By: #### L IPR #### [address] [address] Regulatory Affairs Analyst: Jersey Dahl MD #### CDP, CP #### [facility] [address] [place], [place] [id number] Regulatory Affairs Analyst: Kayley Doll MD CO2 [Moles/Vol] 29 mmol/L Normal 20-[address] [facility] Comment on above: Performed By: #### L IPR #### [address] [address] Regulatory Affairs Analyst: Jersey Dahl MD #### CDP, CP #### [facility] [address] [place] [address] [place] [place], [place] 8443583 Regulatory Affairs Analyst: Kayley Doll MD Creatinine [Mass/Vol] 0.87 mg/dL Normal 0.50-0.90 [facility] Comment on above: Performed By: #### L IPR #### [address] [address] Regulatory Affairs Analyst: Jersey Dahl MD #### CDP, CP #### [address] [place], [place] [phone] Regulatory Affairs Analyst: Kayley Doll MD GFR/1.73 sq M.predicted among non-blacks MDRD (S/P/Bld) [Vol rate/Area] mL/min/{1.73_m2} Normal >60 [facility] Comment on above: Result Comment: These [...] secretion. Performed By: #### L IPR #### [address] [address] Regulatory Affairs Analyst: Jersey Dahl MD #### CDP, CP #### [address] [place], [place] [phone] Regulatory Affairs Analyst: Kayley Doll MD Glucose [Mass/Vol] 136 mg/dL High 70-99 [facility] Comment on above: Performed By: #### L IPR #### [address] [address] Regulatory Affairs Analyst: Jersey Dahl MD #### CDP, CP #### [address] [place], [place] [phone] Regulatory Affairs Analyst: Kayley Doll MD Potassium [Moles/Vol] 3.4 mmol/L Low 3.7-5.3 [facility] Comment on above: Performed By: #### L IPR #### [facility] [address] [place] [address] Regulatory Affairs Analyst: Jersey Dahl MD #### CDP, CP #### [facility] [address] [place], [place] [phone] Regulatory Affairs Analyst: Kayley Doll MD Sodium [Moles/Vol] 155 mmol/L High 135-144 [facility] Comment on above: Performed By: #### L IPR #### [address] [address] Regulatory Affairs Analyst: Jersey Dahl MD #### CDP, CP #### [facility] [address] [place] [address] [place]. [place], [place] [phone] Regulatory Affairs Analyst: Kayley Doll MD Urea nitrogen [Mass/Vol] 35 mg/dL High 8-23 [facility] Comment on above: Performed By: #### L IPR #### [address] [address] Regulatory Affairs Analyst: Jersey Dahl MD #### CDP, CP #### [facility] [address] [place] [address] [address]. [place], [place] [phone] Regulatory Affairs Analyst: Kayley Doll MD Anion gap [Moles/Vol] 11 mmol/L Normal 9-17 [facility] Comment on above: Performed By: #### L IPR #### [address] [address] Regulatory Affairs Analyst: Jersey Dahl MD #### CDP, CP #### [facility] [address] [place], [place] [phone] Regulatory Affairs Analyst: Kayley Doll MD BUN/CRE Ratio 40 High 9-20 [facility] Comment on above: Performed By: #### L IPR #### [address] [address] Regulatory Affairs Analyst: Jersey Dahl MD #### CDP, CP #### [facility] [address] [place], [place] [phone] Regulatory Affairs Analyst: Kayley Doll MD Calcium [Mass/Vol] 10.8 mg/dL High 8.6-10.4 [facility] Comment on above: Performed By: #### L IPR #### [address] [address] Regulatory Affairs Analyst: Jersey Dahl MD #### CDP, CP #### [address] [place], [place] [phone] Regulatory Affairs Analyst: Kayley Doll MD Chloride [Moles/Vol] 113 mmol/L High 98-107 [facility] Comment on above: Performed By: #### L IPR #### [address] [address] Regulatory Affairs Analyst: Jersey Dahl MD #### CDP, CP #### [address] [place], [place] [phone] Regulatory Affairs Analyst: Kayley Doll MD CO2 [Moles/Vol] 28 mmol/L Normal 20-[address] [facility] Comment on above: Performed By: #### L IPR #### [address] [address] Regulatory Affairs Analyst: Jersey Dahl MD #### CDP, CP #### [facility] [address] [place] [address] [place] [address] Regulatory Affairs Analyst: Kayley Doll MD Creatinine [Mass/Vol] 0.94 mg/dL High 0.50-0.90 [facility] Comment on above: Performed By: #### L IPR #### [address] [address] Regulatory Affairs Analyst: Jersey Dahl MD #### CDP, CP #### [address] [place] [address] Regulatory Affairs Analyst: Kayley Doll MD GFR/1.73 sq M.predicted among non-blacks MDRD (S/P/Bld) [Vol rate/Area] mL/min/{1.73_m2} Normal >60 [facility] Comment on above: Result Comment: These [...] secretion. Performed By: #### L IPR #### [address] [address] Regulatory Affairs Analyst: Jersey Dahl MD #### CDP, CP #### [address] [place] [address] Regulatory Affairs Analyst: Kayley Doll MD Glucose [Mass/Vol] 129 mg/dL High 70-99 [facility] Comment on above: Performed By: #### L IPR #### [address] [address] Regulatory Affairs Analyst: Jersey Dahl MD #### CDP, CP #### [address] [place], [place] 2183183 Regulatory Affairs Analyst: Kayley Doll MD Potassium [Moles/Vol] 3.5 mmol/L Low 3.7-5.3 [facility] Comment on above: Performed By: #### L IPR #### [address] [address] Regulatory Affairs Analyst: Jersey Dahl MD #### CDP, CP #### [address] [place] [address] Regulatory Affairs Analyst: Kayley Doll MD Sodium [Moles/Vol] 152 mmol/L High 135-144 [facility] Comment on above: Performed By: #### L IPR #### [facility] [address] [place] [address] Regulatory Affairs Analyst: Jersey Dahl MD #### CDP, CP #### [facility] [address] [place], [place] [phone] Regulatory Affairs Analyst: Kayley Doll MD Urea nitrogen [Mass/Vol] 38 mg/dL High 8-23 [facility] Comment on above: Performed By: #### L IPR #### [address] [address] Regulatory Affairs Analyst: Jersey Dahl MD #### CDP, CP #### [facility] [address] [place] [address] [place] [place] [phone] Regulatory Affairs Analyst: Kayley Doll MD Anion gap [Moles/Vol] 9 mmol/L Normal 9-17 [facility] Comment on above: Performed By: #### L IPR #### [facility] [address] [place] [address] Regulatory Affairs Analyst: Jersey Dahl MD #### CDP, CP #### [address] [place], [place] [phone] Regulatory Affairs Analyst: Kayley Doll MD BUN/CRE Ratio 38 High 9-20 [facility] Comment on above: Performed By: #### L IPR #### [address] [address] Regulatory Affairs Analyst: Jersey Dahl MD #### CDP, CP #### [facility] [address] [place], [place] [phone] Regulatory Affairs Analyst: Kayley Doll MD Calcium [Mass/Vol] 10.7 mg/dL High 8.6-10.4 [facility] Comment on above: Performed By: #### L IPR #### [address] [address] Regulatory Affairs Analyst: Jersey Dahl MD #### CDP, CP #### [facility] [address] [place], [place] [phone] Regulatory Affairs Analyst: Kayley Doll MD Chloride [Moles/Vol] 118 mmol/L High 98-107 [facility] Comment on above: Performed By: #### L IPR #### [address] [address] Regulatory Affairs Analyst: Jersey Dahl MD #### CDP, CP #### [facility] [address] [place] [address] [place] [address] Regulatory Affairs Analyst: Kayley Doll MD CO2 [Moles/Vol] 30 mmol/L Normal 20-[address] [facility] Comment on above: Performed By: #### L IPR #### [address] [address] Regulatory Affairs Analyst: Jersey Dahl MD #### CDP, CP #### [facility] [address] [place] [address] [place] [address] Regulatory Affairs Analyst: Kayley Doll MD Creatinine [Mass/Vol] 0.97 mg/dL High 0.50-0.90 [facility] Comment on above: Performed By: #### L IPR #### [address] [address] Regulatory Affairs Analyst: Jersey Dahl MD #### CDP, CP #### [facility] [address] [place] [address] Regulatory Affairs Analyst: Kayley Doll MD GFR/1.73 sq M.predicted among non-blacks MDRD (S/P/Bld) [Vol rate/Area] mL/min/{1.73_m2} Normal >60 [facility] Comment on above: Result Comment: These [...] secretion. Performed By: #### L IPR #### [address] [address] Regulatory Affairs Analyst: Jersey Dahl MD #### CDP, CP #### [address] [place] [address] Regulatory Affairs Analyst: Kayley Doll MD Glucose [Mass/Vol] 78 mg/dL Normal 70-99 [facility] Comment on above: Performed By: #### L IPR #### [address] [address] Regulatory Affairs Analyst: Jersey Dahl MD #### CDP, CP #### [address] [place] [address] Regulatory Affairs Analyst: Kayley Doll MD Potassium [Moles/Vol] 4.1 mmol/L Normal 3.7-5.3 [facility] Comment on above: Performed By: #### L IPR #### [address] [address] Regulatory Affairs Analyst: Jersey Dahl MD #### CDP, CP #### [address] [place] [address] Regulatory Affairs Analyst: Kayley Doll MD Sodium [Moles/Vol] 157 mmol/L High 135-144 [facility] Comment on above: Performed By: #### L IPR #### [address] [address] Regulatory Affairs Analyst: Jersey Dahl MD #### CDP, CP #### [address] [place] [address] Regulatory Affairs Analyst: Kayley Doll MD Urea nitrogen [Mass/Vol] 37 mg/dL High 8-23 [facility] Comment on above: Performed By: #### L IPR #### [facility] [address] [place], [place] [phone] Regulatory Affairs Analyst: Jersey Dahl MD #### CDP, CP #### [facility] [address] [place] [address] Regulatory Affairs Analyst: Kayley Doll MD CBC with Auto Differentialon 10-08-2022 Absolute Eos # 0.06 [facility] Absolute Immature Granulocyte 0.03 [facility] Absolute Lymph # 0.68 Low [facility] Absolute Labette # 0.32 [facility] Basophils (Bld) [#/Vol] 0.03 10*3/uL [facility] Basophils/100 WBC (Bld) 0 % 0 - 2 % [facility] Eosinophils/100 WBC (Bld) 1 % 1 - 4 % [facility] Hematocrit (Bld) [Volume fraction] 35.0 % Low 36.3 - 47.1 % [facility] Hemoglobin (Bld) [Mass/Vol] 11.0 g/dL Low 11.9 - 15.1 g/dL [facility] Immature granulocytes/100 WBC (Bld) 0 % 0 [facility] Interpretation and review of laboratory results Abnormal [facility] Lymphocytes/100 WBC (Bld) 10 % Low 24 - 43 % [facility] MCH (RBC) [Entitic mass] 30.9 pg 25.2 - 33.5 pg [facility] MCHC (RBC) [Mass/Vol] 31.4 g/dL 28.4 - 34.8 g/dL [facility] MCV (RBC) [Entitic vol] 98.3 fL 82.6 - 102.9 fL [facility] Monocytes/100 WBC (Bld) 5 % 3 - 12 % [facility] NRBC Automated 0.0 0.0 per 100 WBC [facility] Platelet distribution width (Bld) [Ratio] 15.5 % High 11.8 - 14.4 % [facility] Platelet mean volume (Bld) [Entitic vol] 10.2 fL 8.1 - 13.5 fL [facility] Platelets (Bld) [#/Vol] 203 10*3/uL [facility] RBC (Bld) [#/Vol] 3.56 10*6/uL Low 3.95 - 5.11 m/uL [facility] Segmented neutrophils/100 WBC (Bld) 84 % High 36 - 65 % [facility] Segs Absolute 5.86 [facility] WBC (Bld) [#/Vol] 7.0 10*3/uL [facility] CBC with Diffon 10-08-2022 Abs. Basophil 0.03 k/uL Normal 0.00-0.20 [facility] Comment on above: Performed By: #### L IPR #### [place] [address] Regulatory Affairs Analyst: Jersey Dahl MD #### CDP, CP #### [facility] [address] [place] [address] [place] [phone] Regulatory Affairs Analyst: Kayley Doll MD Abs.Imm.Granulocyt e 0.03 k/uL Normal 0.00-0.30 [facility] Comment on above: Performed By: #### L IPR #### [place] [address] Regulatory Affairs Analyst: Jersey Dahl MD #### CDP, CP #### [facility] [address] [place] [address] [place] [phone] Regulatory Affairs Analyst: Kayley Doll MD Abs.Neutrophil (Seg) 5.86 k/uL Normal 1.50-8.10 [facility] Comment on above: Performed By: #### L IPR #### [place] [phone] Regulatory Affairs Analyst: Jersey Dahl MD #### CDP, CP #### [address] [place], [place] [phone] Regulatory Affairs Analyst: Kayley Doll MD Basophils/100 WBC (Bld) 0 % Normal 0-2 [facility] Comment on above: Performed By: #### L IPR #### [address] [address] Regulatory Affairs Analyst: Jersey Dahl MD #### CDP, CP #### [facility] [address] [place] [address] Dr. [place], [place] [phone] Regulatory Affairs Analyst: Kayley Doll MD Eosinophils (Bld) [#/Vol] 0.06 10*3/uL Normal 0.00-0.44 [facility] Comment on above: Performed By: #### L IPR #### [address] [address] Regulatory Affairs Analyst: Jersey Dahl MD #### CDP, CP #### [address] [place] [phone] Regulatory Affairs Analyst: Kayley Doll MD Eosinophils/100 WBC (Bld) 1 % Normal 1-4 [facility] Comment on above: Performed By: #### L IPR #### [address] [address] Regulatory Affairs Analyst: Jersey Dahl MD #### CDP, CP #### [address] [place], [place] [phone] Regulatory Affairs Analyst: Kayley Doll MD Erythrocyte distribution width (RBC) [Ratio] 15.5 % High 11.8-14.4 [facility] Comment on above: Performed By: #### L IPR #### [address] [address] Regulatory Affairs Analyst: Jersey Dahl MD #### CDP, CP #### [address] [place], [place] [phone] Regulatory Affairs Analyst: Kayley Doll MD Hematocrit (Bld) [Volume fraction] 35.0 % Low 36.3-47.1 [facility] Comment on above: Performed By: #### L IPR #### [address] [address] Regulatory Affairs Analyst: Jersey Dahl MD #### CDP, CP #### [address] [place] [phone] Regulatory Affairs Analyst: Kayley Doll MD Hemoglobin (Bld) [Mass/Vol] 11.0 g/dL Low 11.9-15.1 [facility] Comment on above: Performed By: #### L IPR #### [address] [address] Regulatory Affairs Analyst: Jersey Dahl MD #### CDP, CP #### [address] [place] [phone] Regulatory Affairs Analyst: Kayley Doll MD Immature granulocytes/100 WBC (Bld) 0 % Normal 0 [facility] Comment on above: Performed By: #### L IPR #### [address] [address] Regulatory Affairs Analyst: Jersey Dahl MD #### CDP, CP #### [address] [place] [phone] Regulatory Affairs Analyst: Kayley Doll MD Lymphocytes (Bld) [#/Vol] 0.68 10*3/uL Low 1.10-3.70 [facility] Comment on above: Performed By: #### L IPR #### [address] [address] Regulatory Affairs Analyst: Jersey Dahl MD #### CDP, CP #### [address] [place] [phone] Regulatory Affairs Analyst: Kayley Doll MD Lymphocytes/100 WBC (Bld) 10 % Low 24-43 [facility] Comment on above: Performed By: #### L IPR #### [address] [phone] Regulatory Affairs Analyst: Jersey Dahl MD #### CDP, CP #### [facility] [address] [place] [address] Dr. [place] [phone] Regulatory Affairs Analyst: Kayley Doll MD MCH (RBC) [Entitic mass] 30.9 pg Normal 25.2-33.5 [facility] Comment on above: Performed By: #### L IPR #### [address] [phone] Regulatory Affairs Analyst: Jersey Dahl MD #### CDP, CP #### [address] [place] [phone] Regulatory Affairs Analyst: Kayley Doll MD MCHC (RBC) [Mass/Vol] 31.4 g/dL Normal 28.4-34.8 [facility] Comment on above: Performed By: #### L IPR #### [address] [address] Regulatory Affairs Analyst: Jersey Dahl MD #### CDP, CP #### [address] [place] [phone] Regulatory Affairs Analyst: Kayley Doll MD MCV (RBC) [Entitic vol] 98.3 fL Normal 82.6-102.9 [facility] Comment on above: Performed By: #### L IPR #### [address] [address] Regulatory Affairs Analyst: Jersey Dahl MD #### CDP, CP #### [address] [place] [phone] Regulatory Affairs Analyst: Kayley Doll MD Monocytes (Bld) [#/Vol] 0.32 10*3/uL Normal 0.10-1.20 [facility] Comment on above: Performed By: #### L IPR #### [address] [address] Regulatory Affairs Analyst: Jersey Dahl MD #### CDP, CP #### [facility] [address] [place] [address] Dr. [place], [place] [phone] Regulatory Affairs Analyst: Kayley Doll MD Monocytes/100 WBC (Bld) 5 % Normal 3-12 [facility] Comment on above: Performed By: #### L IPR #### [address] [address] Regulatory Affairs Analyst: Jersey Dahl MD #### CDP, CP #### [address] [place] [phone] Regulatory Affairs Analyst: Kayley Doll MD Neutrophil (Seg) 84 % High 36-65 [facility] Comment on above: Performed By: #### L IPR #### [address] [address] Regulatory Affairs Analyst: Jersey Dahl MD #### CDP, CP #### [address] [place], [place] [phone] Regulatory Affairs Analyst: Kayley Doll MD NRBC Automated 0.0 per 100 WBC Normal 0.0 [facility] Comment on above: Performed By: #### L IPR #### [address] [address] Regulatory Affairs Analyst: Jersey Dahl MD #### CDP, CP #### [facility] [address] [place] [address] Dr. [place] [phone] Regulatory Affairs Analyst: Kayley Doll MD Platelet mean volume (Bld) [Entitic vol] 10.2 fL Normal 8.1-13.5 [facility] Comment on above: Performed By: #### L IPR #### [place] [address] [place] [address] Regulatory Affairs Analyst: Jersey Dahl MD #### CDP, CP #### [address] [place], [place] [phone] Regulatory Affairs Analyst: Kayley Doll MD Platelets (Bld) [#/Vol] 203 10*3/uL Normal 138-453 [facility] Comment on above: Performed By: #### L IPR #### [place] [address] [place] [address] Regulatory Affairs Analyst: Jersey Dahl MD #### CDP, CP #### [address] [place] [phone] Regulatory Affairs Analyst: Kayley Doll MD RBC (Bld) [#/Vol] 3.56 10*6/uL Low 3.95-5.11 [facility] Comment on above: Performed By: #### L IPR #### [address] [address] Regulatory Affairs Analyst: Jersey Dahl MD #### CDP, CP #### [address] [place] [phone] Regulatory Affairs Analyst: Kayley Doll MD WBC (Bld) [#/Vol] 7.0 10*3/uL Normal 3.5-11.3 [facility] Comment on above: Performed By: #### L IPR #### [address] [address] Regulatory Affairs Analyst: Jersey Dahl MD #### CDP, CP #### [address] [place] [address] Regulatory Affairs Analyst: Kayley Doll MD CT HEAD WO CONTRASTon [...] Jay Horn MD 10/08/22 Final result Normal [facility] CT Head WO Contraston 2022 No acute intracranial abnormality. [facility] EXAMINATION: CT OF THE HEAD [...] of the visualized skull or soft tissues. [facility] Jay Horn MD - 10/08/2022 [...] soft tissues. IMPRESSION: No acute intracranial abnormality. [employer] Phone: Radiology Study observation (narrative) [employer] Phone: CT Head WO ContrastOrdered B y: Jay Horn on 10-08-2022 [facility] Comp Metabolic Profon 2022 Albumin [Mass/Vol] 4.4 g/dL Normal 3.5-5.2 [facility] Comment on above: Performed By: #### L IPR #### [facility] [address] [place], [place] [phone] Regulatory Affairs Analyst: Jersey Dahl MD #### CDP, CP #### [facility] [address] [place] [address] [place] [address] Regulatory Affairs Analyst: Kayley Doll MD Albumin/Glob Ratio 1.4 Normal 1.0-2.5 [facility] Comment on above: Performed By: #### L IPR #### [facility] 5 CUPS and some sugar [address] [place] [address] Regulatory Affairs Analyst: Jersey Dahl MD #### CDP, CP #### [facility] [address] [place] [address] Regulatory Affairs Analyst: Kayley Doll MD Alkaline Phos 111 U/L High 35-104 [facility] Comment on above: Performed By: #### L IPR #### [place] [address] [place] [address] Regulatory Affairs Analyst: Jersey Dahl MD #### CDP, CP #### [address] [place] [address] Regulatory Affairs Analyst: Kayley Doll MD ALT [Catalytic activity/Vol] 26 U/L Normal 5-33 [facility] Comment on above: Performed By: #### L IPR #### [address] [address] Regulatory Affairs Analyst: Jersey Dahl MD #### CDP, CP #### [address] [place], [place] [phone] Regulatory Affairs Analyst: Kayley Doll MD Anion gap [Moles/Vol] 12 mmol/L Normal 9-17 [facility] Comment on above: Performed By: #### L IPR #### [address] [address] Regulatory Affairs Analyst: Jersey Dahl MD #### CDP, CP #### [address] [place], [place] [phone] Regulatory Affairs Analyst: Kayley Doll MD AST [Catalytic activity/Vol] 23 U/L Normal <32 [facility] Comment on above: Performed By: #### L IPR #### [address] [address] Regulatory Affairs Analyst: Jersey Dahl MD #### CDP, CP #### [address] [place], [place] [phone] Regulatory Affairs Analyst: Kayley Doll MD Bilirubin [Mass/Vol] 0.9 mg/dL Normal 0.3-1.2 [facility] Comment on above: Performed By: #### L IPR #### [place] [address] [place] [address] Regulatory Affairs Analyst: Jersey Dahl MD #### CDP, CP #### [facility] [address] [place] [address] Dr. [place], [place] [phone] Regulatory Affairs Analyst: Kayley Doll MD BUN/CRE Ratio 40 High 9-20 [facility] Comment on above: Performed By: #### L IPR #### [address] [address] Regulatory Affairs Analyst: Jersey Dahl MD #### CDP, CP #### [address] [place], [place] [phone] Regulatory Affairs Analyst: Kayley Doll MD Calcium [Mass/Vol] 11.3 mg/dL High 8.6-10.4 [facility] Comment on above: Performed By: #### L IPR #### [address] [address] Regulatory Affairs Analyst: Jersey Dahl MD #### CDP, CP #### [address] [place], [place] [phone] Regulatory Affairs Analyst: Kayley Doll MD Chloride [Moles/Vol] 117 mmol/L High 98-107 [facility] Comment on above: Performed By: #### L IPR #### [address] [address] Regulatory Affairs Analyst: Jersey Dahl MD #### CDP, CP #### [address] [place], [place] [phone] Regulatory Affairs Analyst: Kayley Doll MD CO2 [Moles/Vol] 29 mmol/L Normal 20-[address] [facility] Comment on above: Performed By: #### L IPR #### [address] [address] Regulatory Affairs Analyst: Jersey Dahl MD #### CDP, CP #### [facility] [address] [place] [address] [place] [address] Regulatory Affairs Analyst: Kayley Doll MD Creatinine [Mass/Vol] 0.97 mg/dL High 0.50-0.90 [facility] Comment on above: Performed By: #### L IPR #### [place] [address] [place] [address] Regulatory Affairs Analyst: Jersey Dahl MD #### CDP, CP #### [facility] [address] [place] [address] [place] [address] Regulatory Affairs Analyst: Kayley Doll MD GFR/1.73 sq M.predicted among non-blacks MDRD (S/P/Bld) [Vol rate/Area] mL/min/{1.73_m2} Normal >60 [facility] Comment on above: Result Comment: These [...] secretion. Performed By: #### L IPR #### [place] [address] [place] [address] Regulatory Affairs Analyst: Jersey Dahl MD #### CDP, CP #### [facility] [address] [place] [address] [place] [address] Regulatory Affairs Analyst: Kayley Doll MD Glucose [Mass/Vol] 96 mg/dL Normal 70-99 [facility] Comment on above: Performed By: #### L IPR #### [facility] [address] [place] [address] Regulatory Affairs Analyst: Jersey Dahl MD #### CDP, CP #### [address] [place], [place] 0444183 Regulatory Affairs Analyst: Kayley Doll MD Potassium [Moles/Vol] 4.1 mmol/L Normal 3.7-5.3 [facility] Comment on above: Performed By: #### L IPR #### [address] [address] Regulatory Affairs Analyst: Jersey Dahl MD #### CDP, CP #### [address] [place], [place] 1458283 Regulatory Affairs Analyst: Kayley Doll MD Protein [Mass/Vol] 7.6 g/dL Normal 6.4-8.3 [facility] Comment on above: Performed By: #### L IPR #### [address] [address] Regulatory Affairs Analyst: Jersey Dahl MD #### CDP, CP #### [address] [place], [place] [phone] Regulatory Affairs Analyst: Kayley Doll MD Sodium [Moles/Vol] 158 mmol/L High 135-144 [facility] Comment on above: Performed By: #### L IPR #### [address] [address] Regulatory Affairs Analyst: Jersey Dahl MD #### CDP, CP #### [address] [place], [place] 7153983 Regulatory Affairs Analyst: Kayley Doll MD Urea nitrogen [Mass/Vol] 39 mg/dL High 8-23 [facility] Comment on above: Performed By: #### L IPR #### [address] [address] Regulatory Affairs Analyst: Jersey Dahl MD #### CDP, CP #### [address] [place], [place] [phone] Regulatory Affairs Analyst: Kayley Doll MD Comprehensive Met[facility] 10-08-2022 Albumin [Mass/Vol] 4.4 g/dL 3.5 - 5.2 g/dL [facility] Albumin/Globulin [Mass ratio] 1.4 {ratio} 1.0 - 2.5 [facility] ALP [Catalytic activity/Vol] 111 U/L High 35 - 104 U/L [facility] ALT [Catalytic activity/Vol] 26 U/L 5 - 33 U/L [facility] Anion gap [Moles/Vol] 12 mmol/L 9 - 17 mmol/L [facility] AST [Catalytic activity/Vol] 23 U/L NINF - 32 U/L [facility] Bilirubin [Mass/Vol] 0.9 mg/dL 0.3 - 1.2 mg/dL [facility] Calcium [Mass/Vol] 11.3 mg/dL High 8.6 - 10.4 mg/dL [facility] Chloride [Moles/Vol] 117 mmol/L High 98 - 107 mmol/L [facility] CO2 [Moles/Vol] 29 mmol/L 20 - 31 mmol/L [facility] Creatinine [Mass/Vol] 0.97 mg/dL High 0.50 - 0.90 mg/dL [facility] GFR/1.73 sq M.predicted MDRD (S/P/Bld) [Vol rate/Area] - PINF [facility] Comment on above: These results [...] [Mass/Vol] 96 mg/dL 70 - 99 mg/dL [facility] Interpretation and review of laboratory results Abnormal [facility] Potassium [Moles/Vol] 4.1 mmol/L 3.7 - 5.3 mmol/L [facility] Protein [Mass/Vol] 7.6 g/dL 6.4 - 8.3 g/dL [facility] [email or web address] Sodium [Moles/Vol] 158 mmol/L High 135 - 144 mmol/L [facility] [employer] Urea nitrogen [Mass/Vol] 39 mg/dL High 8 - 23 mg/dL [facility] [employer] Urea nitrogen/Creatinin e (Bld) [Mass ratio] 40 High 9 - 20 [facility] [employer] [facility] [employer] Cult,Urineon 10-08-2022 Cult,Urine Specimen Description .VOIDED URINE Culture CITROBACTER FREUNDII >[id number] CFU/ML Report Status FINAL 10/07/2022 SUSCEPTIBILITY Organism CITROBACTER FREUNDII Method TIMOTHY Ceftriaxone <=0.25 SUSCEPTIBLE Gentamicin <=1 SUSCEPTIBLE Levofloxacin 1 SUSCEPTIBLE Nitrofurantoin <=16 SUSCEPTIBLE Piperacillin/Tazob actam <=4 SUSCEPTIBLE Tobramycin <=1 SUSCEPTIBLE Trimethoprim/Sulfa <=20 SUSCEPTIBLE Susceptible [facility] Comment on above: Performed By: #### L IPR #### [facility] [address] [place] [address] Regulatory Affairs Analyst: Jersey Dahl MD #### CDP, CP #### [facility] [address] [place] [address] Regulatory Affairs Analyst: Kayley Doll MD EKG 12 LeadOrdered By: Nhan argueta on 10-08-2022 Atrial Rate 57 BPM [facility] [email or web address] Work Phone: P [place] 44 degrees [facility] [email or web address] Work Phone: P-R Interval 144 ms [facility] [email or web address] Work Phone: Q-T Interval 442 ms [employer] Work Phone: QRS Duration 78 ms [employer] Work Phone: QTc Calculation (Bazett) 430 ms [employer] Work Phone: R [place] 35 degrees [employer] Work Phone: T [place] 25 degrees [employer] Work Phone: Ventricular Rate 57 BPM [facility] [employer] Work Phone: [employer] Work Phone: EKG 12 Leadon 10-08-2022 Poor data quality, interpretation may be adversely affected Sinus bradycardia Otherwise normal ECG No previous ECGs available Confirmed by Nhan June MD ([id number]) on 10/08/2022 5:02:13 PM [facility] Nhan June MD - 10/08/2022 Poor data quality, interpretation may be adversely affected Sinus bradycardia Otherwise normal ECG No previous ECGs available Confirmed by Nhan June MD ([id number]) on 10/08/2022 5:02:13 PM [employer] [facility] Work Phone: Glucose, Whole Bloodon 10-08 Glucose [Mass/Vol] 94 mg/dL 74 - 100 mg/dL [facility] Via[employer] [facility] Microscopic Urinalysison Bacteria, UA 3+ Abnormal None [facility] Epithelial Cells UA 0 TO 2 [facility] Interpretation and review of laboratory results Abnormal [facility] RBC clumps Auto (Urine sed) [#/Area] 0 TO 2 [facility] WBC, UA GREATER THAN [address] [facility] UA w/Reflex Cultureon 2022 Bilirubin, SemiQt,Ur Negative Normal NEG [facility] Comment on above: Performed By: #### L IPR #### [facility] 5 CUPS and some sugar [address] [place] [address] Regulatory Affairs Analyst: Jersey Dahl MD #### MARLIN CP #### [facility] [address] [place] [address] Regulatory Affairs Analyst: Kayley Doll MD Blood, Urine 1+ Abnormal NEG [facility] Comment on above: Performed By: #### L IPR #### [facility] 5 CUPS and some sugar [facility] [place] [address] Regulatory Affairs Analyst: Jersey Dahl MD #### CDP, CP #### [facility] [address] [place] [address] Dr. [place], [place] [phone] Regulatory Affairs Analyst: Kayley Doll MD Clarity (U) Clear Normal CLEAR [facility] Comment on above: Performed By: #### L IPR #### [address] [address] Regulatory Affairs Analyst: Jersey Dahl MD #### CDP, CP #### [address] [place], [place] [phone] Regulatory Affairs Analyst: Kayley Doll MD Color (U) Yellow Normal YEL [facility] Comment on above: Performed By: #### L IPR #### [address] [address] Regulatory Affairs Analyst: Jersey Dahl MD #### CDP, CP #### [address] [place], [place] [phone] Regulatory Affairs Analyst: Kayley Doll MD Glucose Ql (U) Negative Normal NEG [facility] Comment on above: Performed By: #### L IPR #### [address] [address] Regulatory Affairs Analyst: Jersey Dahl MD #### CDP, CP #### [address] [place], [place] [phone] Regulatory Affairs Analyst: Kayley Doll MD Ketones Ql (U) 2+ Abnormal NEG [facility] Comment on above: Performed By: #### L IPR #### [address] [address] Regulatory Affairs Analyst: Jersey Dahl MD #### CDP, CP #### [address] [place], [place] [phone] Regulatory Affairs Analyst: Kayley Doll MD Leukocyte esterase Test strip Ql (U) MODERATE Abnormal NEG [facility] Comment on above: Performed By: #### L IPR #### [address] [address] Regulatory Affairs Analyst: Jersey Dahl MD #### CDP, CP #### [facility] [address] [place] [address] [place] [address] Regulatory Affairs Analyst: Kayley Doll MD Nitrite,Ur Positive Abnormal NEG [facility] Comment on above: Performed By: #### L IPR #### [address] [address] Regulatory Affairs Analyst: Jersey Dahl MD #### CDP, CP #### [address] [place] [address] Regulatory Affairs Analyst: Kayley Doll MD PH,Ur 6.0 Normal 5.0-9.0 [facility] Comment on above: Performed By: #### L IPR #### [address] [address] Regulatory Affairs Analyst: Jersey Dahl MD #### CDP, CP #### [facility] [address] [place] [address] [place] [address] Regulatory Affairs Analyst: Kayley Doll MD Protein Ql (U) TRACE Abnormal NEG [facility] Comment on above: Performed By: #### L IPR #### [address] [address] Regulatory Affairs Analyst: Jersey Dahl MD #### CDP, CP #### [facility] [address] [place] [address] [place] [address] Regulatory Affairs Analyst: Kayley Doll MD Spec. [place],Ur >1.030 High 1.010-1.020 [facility] Comment on above: Performed By: #### L IPR #### [address] [address] Regulatory Affairs Analyst: Jersey Dahl MD #### CDP, CP #### [facility] [address] [place] [address] [place] [address] Regulatory Affairs Analyst: Kayley Doll MD Urobilinogen,Ur Normal Normal NORM [facility] Comment on above: Performed By: #### L IPR #### [facility] [address] [place] [address] Regulatory Affairs Analyst: Jersey Dahl MD #### CDP, CP #### [facility] [address] [place] [address] [place] [address] Regulatory Affairs Analyst: Kayley Doll MD Urinalysis with Reflex to Cu ltureon 10-08-2022 Bilirubin Urine Negative NEGATIVE [facility] Color, UA Yellow Yellow [facility] Glucose Auto test strip (U) [Mass/Vol] Negative NEGATIVE [facility] Interpretation and review of laboratory results Abnormal [facility] Ketones (U) [Mass/Vol] 2+ Abnormal NEGATIVE [facility] Leukocyte esterase Auto test strip Ql (U) MODERATE Abnormal NEGATIVE [facility] Nitrite Auto test strip Ql (U) Positive Abnormal NEGATIVE [facility] Protein (U) [Mass/Vol] 6.0 mg/dL 5.0 - 9.0 [facility] Protein (U) [Mass/Vol] TRACE Abnormal NEGATIVE [facility] Specific [place], UA High 1.010 - 1.020 [facility] Turbidity UA Clear Clear [facility] Urine Hgb 1+ Abnormal NEGATIVE [facility] Urobilinogen, Urine Normal Normal [facility] Urinalysis,Microon 3 Bacteria 3+ Abnormal NONE [facility] Comment on above: Performed By: #### L IPR #### [facility] [address] [place] [address] Regulatory Affairs Analyst: Jersey Dahl MD #### CDP, CP #### [facility] [address] [place] [address] [place] [address] Regulatory Affairs Analyst: Kayley Doll MD Epithelial cells LM Ql (Urine sed) 0 TO 2 Normal 0-25 [facility] Comment on above: Performed By: #### L IPR #### [address] [address] Regulatory Affairs Analyst: Jersey Dahl MD #### CDP, CP #### [facility] [address] [place], [place] [phone] Regulatory Affairs Analyst: Kayley Doll MD Urine RBC's 0 TO 2 Normal 0-2 [facility] Comment on above: Performed By: #### L IPR #### [address] [address] Regulatory Affairs Analyst: Jersey Dahl MD #### CDP, CP #### [facility] [address] [place] [address] [address]. [place] [phone] Regulatory Affairs Analyst: Kayley Doll MD Urine WBC's GREATER THAN 100 Normal 0-5 [facility] Comment on above: Performed By: #### L IPR #### [address] [address] Regulatory Affairs Analyst: Jersey Dahl MD #### CDP, CP #### [address] [place] [phone] Regulatory Affairs Analyst: Kayley Doll MD Urinalysis, Routineon 2022 Bilirubin, SemiQt,Ur Negative Normal NEG [facility] Comment on above: Performed By: #### L IPR #### [address] [address] Regulatory Affairs Analyst: Jersey Dahl MD #### CDP, CP #### [facility] [address] [place] [address] Dr. [place], [place] [phone] Regulatory Affairs Analyst: Kayley Doll MD Blood, Urine Negative Normal NEG [facility] Comment on above: Performed By: #### L IPR #### [address] [address] Regulatory Affairs Analyst: Jersey Dahl MD #### CDP, CP #### [address] [place], [place] 0878583 Regulatory Affairs Analyst: Kayley Doll MD Clarity (U) Turbid Abnormal CLEAR [facility] Comment on above: Performed By: #### L IPR #### [address] [address] Regulatory Affairs Analyst: Jersey Dahl MD #### CDP, CP #### [address] [place], [place] 0893883 Regulatory Affairs Analyst: Kayley Doll MD Color (U) Yellow Normal YEL [facility] Comment on above: Performed By: #### L IPR #### [address] [address] Regulatory Affairs Analyst: Jersey Dahl MD #### CDP, CP #### [address] [place], [place] [phone] Regulatory Affairs Analyst: Kayley Doll MD Glucose Ql (U) Negative Normal NEG [facility] Comment on above: Performed By: #### L IPR #### [address] [address] Regulatory Affairs Analyst: Jersey Dahl MD #### CDP, CP #### [address] [place], [place] [phone] Regulatory Affairs Analyst: Kayley Doll MD Ketones Ql (U) 1+ Abnormal NEG [facility] Comment on above: Performed By: #### L IPR #### [address] [address] Regulatory Affairs Analyst: Jersey Dahl MD #### CDP, CP #### [address] [place], [place] [phone] Regulatory Affairs Analyst: Kayley Doll MD Leukocyte esterase Test strip Ql (U) Negative Normal NEG [facility] Comment on above: Performed By: #### L IPR #### [address] [address] Regulatory Affairs Analyst: Jersey Dahl MD #### CDP, CP #### [facility] [address] [place] [address] Dr. [place], [place] [phone] Regulatory Affairs Analyst: Kayley Doll MD Nitrite,Ur Positive Abnormal NEG [facility] Comment on above: Performed By: #### L IPR #### [address] [address] Regulatory Affairs Analyst: Jersey Dahl MD #### CDP, CP #### [address] [place] [address] Regulatory Affairs Analyst: Kayley Doll MD PH,Ur 6.0 Normal 5.0-9.0 [facility] Comment on above: Performed By: #### L IPR #### [address] [address] Regulatory Affairs Analyst: Jersey Dahl MD #### CDP, CP #### [address] [place], [place] [phone] Regulatory Affairs Analyst: Kayley Doll MD Protein Ql (U) Negative Normal NEG [facility] Comment on above: Performed By: #### L IPR #### [address] [address] Regulatory Affairs Analyst: Jersey Dahl MD #### CDP, CP #### [facility] [address] [place] [address] [place] [address] Regulatory Affairs Analyst: Kayley Doll MD Spec. [place],Ur >1.030 High 1.010-1.020 [facility] Comment on above: Performed By: #### L IPR #### [address] [address] Regulatory Affairs Analyst: Jersey Dahl MD #### CDP, CP #### [address] [place], [place] [phone] Regulatory Affairs Analyst: Kayley Doll MD Urobilinogen,Ur Normal Normal NORM [facility] Comment on above: Performed By: #### L IPR #### [address] [address] Regulatory Affairs Analyst: Jersey Dahl MD #### CDP, CP #### [address] [place], [place] [phone] Regulatory Affairs Analyst: Kayley Doll MD Urinalysis,Microon 3 Amorphous sediment LM Ql (Urine sed) 3+ Abnormal NONE [facility] Comment on above: Performed By: #### L IPR #### [address] [address] Regulatory Affairs Analyst: Jersey Dahl MD #### CDP, CP #### [address] [place], [place] [phone] Regulatory Affairs Analyst: Kayley Doll MD Bacteria 2+ Abnormal [facility] Comment on above: Performed By: #### L IPR #### [address] [address] Regulatory Affairs Analyst: Jersey Dahl MD #### CDP, CP #### [address] [place], [place] [phone] Regulatory Affairs Analyst: Kayley Doll MD Epithelial cells LM Ql (Urine sed) None Normal 0-25 [facility] Comment on above: Performed By: #### L IPR #### [address] [address] Regulatory Affairs Analyst: Jersey Dahl MD #### CDP, CP #### [address] [place] [address] Regulatory Affairs Analyst: Kayley Doll MD Urine RBC's None Normal 0-2 [facility] Comment on above: Performed By: #### L IPR #### [facility] [address] [place], [place] [phone] Regulatory Affairs Analyst: Jersey Dahl MD #### CDP, CP #### [facility] [address] [address] Regulatory Affairs Analyst: Kayley Doll MD Urine WBC's 0 TO 2 Normal 0-5 [facility] Comment on above: Performed By: #### L IPR #### [facility] 5 CUPS and some sugar [address] [place], [place] [phone] Regulatory Affairs Analyst: Jersey Dahl MD #### CDP, CP #### [facility] [address] [place] [address] Regulatory Affairs Analyst: Kayley Doll MD Lipid Panelon 10-05-2022 Cholesterol [Mass/Vol] 199 mg/dL NINF - 200 mg/dL [facility] Comment on above: Cholesterol Guidelines: <200 Desirable 200-240 Borderline >240 Undesirable Cholesterol in HDL [Mass/Vol] 107 mg/dL 40 - PINF mg/dL [facility] Comment on above: HDL Guidelines: <40 Undesirable 40-59 Borderline >59 Desirable Cholesterol in LDL [Mass/Vol] 73 mg/dL 0 - 130 mg/dL [facility] Comment on above: LDL Guidelines: <100 Desirable 100-129 Near to/above Desirable 130-159 Borderline >159 Undesirable Direct (measured) LDL and calculated LDL are not interchangeable tests. Cholesterol.total/ Cholesterol in HDL [Mass ratio] 1.9 {ratio} NINF - 5 [facility] Triglyceride [Mass/Vol] 93 mg/dL NINF - 150 mg/dL [facility] Comment on above: Triglyceride Guidelines: <150 Desirable 150-199 Borderline 200-499 High >499 Very high Based on AHA Guidelines for fasting triglyceride, March 2012. [facility] Lipid Profileon 10-05-2022 Cholesterol [Mass/Vol] 199 mg/dL Normal <200 [facility] Comment on above: Result Comment: Cholesterol Guidelines: <200 Desirable 200-240 Borderline >240 Undesirable Performed By: #### L IPR #### [address] [address] Regulatory Affairs Analyst: Jersey Dahl MD #### CDP, CP #### [address] [place] [address] Regulatory Affairs Analyst: Kayley Doll MD Cholesterol in HDL [Mass/Vol] 107 mg/dL Normal >40 [facility] Comment on above: Result Comment: HDL Guidelines: <40 Undesirable 40-59 Borderline >59 Desirable Performed By: #### L IPR #### [address] [address] Regulatory Affairs Analyst: Jersey Dahl MD #### CDP, CP #### [address] [place] [phone] Regulatory Affairs Analyst: Kayley Doll MD Cholesterol in LDL [Mass/Vol] 73 mg/dL Normal 0-130 [facility] Comment on above: Result Comment: LDL Guidelines: <100 Desirable 100-129 Near to/above Desirable 130-159 Borderline >159 Undesirable Direct (measured) LDL and calculated LDL are not interchangeable tests. Performed By: #### L IPR #### [address] [address] Regulatory Affairs Analyst: Jersey Dahl MD #### CDP, CP #### [address] [place] [address] Regulatory Affairs Analyst: Kayley Doll MD Cholesterol.total/ Cholesterol in HDL [Mass ratio] 1.9 {ratio} Normal <5 [facility] Comment on above: Performed By: #### L IPR #### [address] [address] Regulatory Affairs Analyst: Jersey Dahl MD #### CDP, CP #### [address] [place] [address] Regulatory Affairs Analyst: Kayley Doll MD Triglyceride [Mass/Vol] 93 mg/dL Normal <150 [facility] Comment on above: Result Comment: Triglyceride Guidelines: <150 Desirable 150-199 Borderline 200-499 High >499 Very high Based on AHA Guidelines for fasting triglyceride, March 2012. Performed By: #### L IPR #### [facility] [address] [place], [place] [phone] Regulatory Affairs Analyst: Jersey Dahl MD #### CDP, CP #### [facility] [address] [place] [address] Regulatory Affairs Analyst: Kayley Doll MD CBC with Auto Differentialon 10-04-2022 Absolute Eos # 0.14 [facility] Absolute Immature Granulocyte [facility] Absolute Lymph # 0.95 Low [facility] Absolute Labette # 0.50 [facility] RS [facility] Basophils (Bld) [#/Vol] 0.03 10*3/uL [facility] Basophils/100 WBC (Bld) 1 % 0 - 2 % [facility] Eosinophils/100 WBC (Bld) 2 % 1 - 4 % [facility] Hematocrit (Bld) [Volume fraction] 32.9 % Low 36.3 - 47.1 % [facility] Hemoglobin (Bld) [Mass/Vol] 10.5 g/dL Low 11.9 - 15.1 g/dL [facility] Immature granulocytes/100 WBC (Bld) 0 % 0 [facility] Interpretation and review of laboratory results Abnormal [facility] Lymphocytes/100 WBC (Bld) 15 % Low 24 - 43 % [facility] MCH (RBC) [Entitic mass] 31.3 pg 25.2 - 33.5 pg [facility] MCHC (RBC) [Mass/Vol] 31.9 g/dL 28.4 - 34.8 g/dL [facility] MCV (RBC) [Entitic vol] 97.9 fL 82.6 - 102.9 fL [facility] Monocytes/100 WBC (Bld) 8 % 3 - 12 % [facility] NRBC Automated 0.0 0.0 per 100 WBC [facility] Platelet distribution width (Bld) [Ratio] 15.6 % High 11.8 - 14.4 % [facility] Platelet mean volume (Bld) [Entitic vol] 9.7 fL 8.1 - 13.5 fL [facility] Platelets (Bld) [#/Vol] 148 10*3/uL [facility] RBC (Bld) [#/Vol] 3.36 10*6/uL Low 3.95 - 5.11 m/uL [facility] Segmented neutrophils/100 WBC (Bld) 74 % High 36 - 65 % [facility] Segs Absolute 4.83 [facility] WBC (Bld) [#/Vol] 6.5 10*3/uL [facility] CBC with Diffon 10-04-2022 Abs. Basophil 0.03 k/uL Normal 0.00-0.20 [facility] Comment on above: Performed By: #### L IPR #### [address] [phone] Regulatory Affairs Analyst: Jersey Dahl MD #### [place], CP #### [address] [place] [address] Regulatory Affairs Analyst: Kayley Doll MD Abs.Imm.Granulocyt e <0.03 Normal 0.00-0.30 [facility] Comment on above: Performed By: #### L IPR #### [address] [place] [address] Regulatory Affairs Analyst: Jersey Dahl MD #### CDP, CP #### [facility] [address] [place] [address] [place] [address] Regulatory Affairs Analyst: Kayley Doll MD Abs.Neutrophil (Seg) 4.83 k/uL Normal 1.50-8.10 [facility] Comment on above: Performed By: #### L IPR #### [address] [address] Regulatory Affairs Analyst: Jersey Dahl MD #### CDP, CP #### [address] [place] [address] Regulatory Affairs Analyst: Kayley Doll MD Basophils/100 WBC (Bld) 1 % Normal 0-2 [facility] Comment on above: Performed By: #### L IPR #### [address] [address] Regulatory Affairs Analyst: Jersey Dahl MD #### CDP, CP #### [address] [place] [phone] Regulatory Affairs Analyst: Kayley Doll MD Eosinophils (Bld) [#/Vol] 0.14 10*3/uL Normal 0.00-0.44 [facility] Comment on above: Performed By: #### L IPR #### [address] [address] Regulatory Affairs Analyst: Jersey Dahl MD #### CDP, CP #### [address] [place] [phone] Regulatory Affairs Analyst: Kayley Doll MD Eosinophils/100 WBC (Bld) 2 % Normal 1-4 [facility] Comment on above: Performed By: #### L IPR #### [address] [address] Regulatory Affairs Analyst: Jersey Dahl MD #### CDP, CP #### [address] [place] [phone] Regulatory Affairs Analyst: Kayley Doll MD Erythrocyte distribution width (RBC) [Ratio] 15.6 % High 11.8-14.4 [facility] Comment on above: Performed By: #### L IPR #### [address] [address] Regulatory Affairs Analyst: Jersey Dahl MD #### CDP, CP #### [facility] [address] [place] [address] [place] [address] Regulatory Affairs Analyst: Kayley Doll MD Hematocrit (Bld) [Volume fraction] 32.9 % Low 36.3-47.1 [facility] Comment on above: Performed By: #### L IPR #### [address] [address] Regulatory Affairs Analyst: Jersey Dahl MD #### CDP, CP #### [address] [place], [place] 8066783 Regulatory Affairs Analyst: Kayley Doll MD Hemoglobin (Bld) [Mass/Vol] 10.5 g/dL Low 11.9-15.1 [facility] Comment on above: Performed By: #### L IPR #### [address] [address] Regulatory Affairs Analyst: Jersey Dahl MD #### CDP, CP #### [address] [place] [phone] Regulatory Affairs Analyst: Kayley Doll MD Immature granulocytes/100 WBC (Bld) 0 % Normal 0 [facility] Comment on above: Performed By: #### L IPR #### [address] [address] Regulatory Affairs Analyst: Jersey Dahl MD #### CDP, CP #### [address] [place], [place] 8695383 Regulatory Affairs Analyst: Kayley Doll MD Lymphocytes (Bld) [#/Vol] 0.95 10*3/uL Low 1.10-3.70 [facility] Comment on above: Performed By: #### L IPR #### [address] [address] Regulatory Affairs Analyst: Jersey Dahl MD #### CDP, CP #### [address] [place], [place] 8083283 Regulatory Affairs Analyst: Kayley Doll MD Lymphocytes/100 WBC (Bld) 15 % Low 24-43 [facility] Comment on above: Performed By: #### L IPR #### [address] [phone] Regulatory Affairs Analyst: Jersey Dahl MD #### CDP, CP #### [address] [place], [place] 7102283 Regulatory Affairs Analyst: Kayley Doll MD MCH (RBC) [Entitic mass] 31.3 pg Normal 25.2-33.5 [facility] Comment on above: Performed By: #### L IPR #### [address] [phone] Regulatory Affairs Analyst: Jersey Dahl MD #### CDP, CP #### [address] [place], [place] 0672283 Regulatory Affairs Analyst: Kayley Doll MD MCHC (RBC) [Mass/Vol] 31.9 g/dL Normal 28.4-34.8 [facility] Comment on above: Performed By: #### L IPR #### [address] [address] Regulatory Affairs Analyst: Jersey Dhal MD #### CDP, CP #### [address] [place], [place] 5349983 Regulatory Affairs Analyst: Kayley Doll MD MCV (RBC) [Entitic vol] 97.9 fL Normal 82.6-102.9 [facility] Comment on above: Performed By: #### L IPR #### [address] [address] Regulatory Affairs Analyst: Jersey Dahl MD #### CDP, CP #### [address] [place] [address] Regulatory Affairs Analyst: Kayley Doll MD Monocytes (Bld) [#/Vol] 0.50 10*3/uL Normal 0.10-1.20 [facility] Comment on above: Performed By: #### L IPR #### [address] [address] Regulatory Affairs Analyst: Jersey Dahl MD #### CDP, CP #### [address] [place] [phone] Regulatory Affairs Analyst: Kayley Doll MD Monocytes/100 WBC (Bld) 8 % Normal 3-12 [facility] Comment on above: Performed By: #### L IPR #### [address] [address] Regulatory Affairs Analyst: Jersey Dahl MD #### CDP, CP #### [address] [place] [phone] Regulatory Affairs Analyst: Kayley Doll MD Neutrophil (Seg) 74 % High 36-65 [facility] Comment on above: Performed By: #### L IPR #### [address] [address] Regulatory Affairs Analyst: Jersey Dahl MD #### CDP, CP #### [address] [place] [phone] Regulatory Affairs Analyst: Kayley Doll MD NRBC Automated 0.0 per 100 WBC Normal 0.0 [facility] Comment on above: Performed By: #### L IPR #### [address] [address] Regulatory Affairs Analyst: Jersey Dahl MD #### CDP, CP #### [address] [place] [phone] Regulatory Affairs Analyst: Kayley Doll MD Platelet mean volume (Bld) [Entitic vol] 9.7 fL Normal 8.1-13.5 [facility] Comment on above: Performed By: #### L IPR #### [facility] [address] [place] [address] Regulatory Affairs Analyst: Jersey Dahl MD #### CDP, CP #### [facility] [address] [place], [place] 9991083 Regulatory Affairs Analyst: Kayley Doll MD Platelets (Bld) [#/Vol] 148 10*3/uL Normal 138-453 [facility] Comment on above: Performed By: #### L IPR #### [facility] [address] [place] [address] Regulatory Affairs Analyst: Jersey Dahl MD #### CDP, CP #### [facility] [address] [place], [place] [phone] Regulatory Affairs Analyst: Kayley Doll MD RBC (Bld) [#/Vol] 3.36 10*6/uL Low 3.95-5.11 [facility] Comment on above: Performed By: #### L IPR #### [facility] [address] [place] [address] Regulatory Affairs Analyst: Jersey Dahl MD #### CDP, CP #### [facility] [address] [place] [address] [place]. [place], [place] [phone] Regulatory Affairs Analyst: Kayley Doll MD WBC (Bld) [#/Vol] 6.5 10*3/uL Normal 3.5-11.3 [facility] Comment on above: Performed By: #### L IPR #### [facility] [address] [place] [address] Regulatory Affairs Analyst: Jersey Dahl MD #### CDP, CP #### [facility] [address] [place], [place] 8421783 Regulatory Affairs Analyst: Kayley Doll MD Comp Metabolic Profon 2022 Albumin [Mass/Vol] 3.9 g/dL Normal 3.5-5.2 [facility] Comment on above: Performed By: #### L IPR #### [address] [place] [address] Regulatory Affairs Analyst: Jersey Dahl MD #### CDP, CP #### [facility] [address] [place], [place] 5227783 Regulatory Affairs Analyst: Kayley Doll MD Albumin/Glob Ratio 1.1 Normal 1.0-2.5 [facility] Comment on above: Performed By: #### L IPR #### [address] [address] Regulatory Affairs Analyst: Jersey Dahl MD #### CDP, CP #### [facility] [address] [place] [address] Dr. [place], [place] [phone] Regulatory Affairs Analyst: Kayley Doll MD Alkaline Phos 99 U/L Normal 35-104 [facility] Comment on above: Performed By: #### L IPR #### [address] [address] Regulatory Affairs Analyst: Jersey Dahl MD #### CDP, CP #### [facility] [address] [place] [address] Dr. [place], [place] 8570083 Regulatory Affairs Analyst: Kayley Doll MD ALT [Catalytic activity/Vol] 27 U/L Normal 5-33 [facility] Comment on above: Performed By: #### L IPR #### [address] [address] Regulatory Affairs Analyst: Jersey Dahl MD #### CDP, CP #### [facility] [address] [place], [place] 9290083 Regulatory Affairs Analyst: Kayley Doll MD Anion gap [Moles/Vol] 10 mmol/L Normal 9-17 [facility] Comment on above: Performed By: #### L IPR #### [address] [address] Regulatory Affairs Analyst: Jersey Dahl MD #### CDP, CP #### [facility] [address] [place], [place] 9470983 Regulatory Affairs Analyst: Kayley Doll MD AST [Catalytic activity/Vol] 21 U/L Normal <32 [facility] Comment on above: Performed By: #### L IPR #### [address] [address] Regulatory Affairs Analyst: Jersey Dahl MD #### CDP, CP #### [address] [place], [place] [phone] Regulatory Affairs Analyst: Kayley Doll MD Bilirubin [Mass/Vol] 1.0 mg/dL Normal 0.3-1.2 [facility] Comment on above: Performed By: #### L IPR #### [address] [address] Regulatory Affairs Analyst: Jersey Dahl MD #### CDP, CP #### [address] [place], [place] 8373183 Regulatory Affairs Analyst: Kayley Doll MD BUN/CRE Ratio 40 High 9-20 [facility] Comment on above: Performed By: #### L IPR #### [address] [address] Regulatory Affairs Analyst: Jersey Dahl MD #### CDP, CP #### [address] [place], [place] 8123183 Regulatory Affairs Analyst: Kayley Doll MD Calcium [Mass/Vol] 10.9 mg/dL High 8.6-10.4 [facility] Comment on above: Performed By: #### L IPR #### [address] [address] Regulatory Affairs Analyst: Jersey Dahl MD #### CDP, CP #### [address] [place], [place] 4404383 Regulatory Affairs Analyst: Kayley Doll MD Chloride [Moles/Vol] 110 mmol/L High 98-107 [facility] Comment on above: Performed By: #### L IPR #### [facility] [address] [place] [address] Regulatory Affairs Analyst: Jersey Dahl MD #### CDP, CP #### [facility] [address] [place] [address] [place], [place] [phone] Regulatory Affairs Analyst: Kayley Doll MD CO2 [Moles/Vol] 30 mmol/L Normal 20-[address] [facility] Comment on above: Performed By: #### L IPR #### [address] [address] Regulatory Affairs Analyst: Jersey Dahl MD #### CDP, CP #### [address] [place], [place] 5338283 Regulatory Affairs Analyst: Kayley Doll MD Creatinine [Mass/Vol] 0.99 mg/dL High 0.50-0.90 [facility] Comment on above: Performed By: #### L IPR #### [address] [place] [address] Regulatory Affairs Analyst: Jersey Dahl MD #### CDP, CP #### [address] [place], [place] 9256483 Regulatory Affairs Analyst: Kayley Doll MD GFR/1.73 sq M.predicted among non-blacks MDRD (S/P/Bld) [Vol rate/Area] mL/min/{1.73_m2} Normal >60 [facility] Comment on above: Result Comment: These [...] secretion. Performed By: #### L IPR #### [address] [address] Regulatory Affairs Analyst: Jersey Dahl MD #### CDP, CP #### [address] [place], [place] [id number] Regulatory Affairs Analyst: Kayley Doll MD Glucose [Mass/Vol] 80 mg/dL Normal 70-99 [facility] Comment on above: Performed By: #### L IPR #### [address] [address] Regulatory Affairs Analyst: Jersey Dahl MD #### CDP, CP #### [address] [place], [place] [address] Regulatory Affairs Analyst: Kayley Doll MD Potassium [Moles/Vol] 3.5 mmol/L Low 3.7-5.3 [facility] Comment on above: Performed By: #### L IPR #### [address] [address] Regulatory Affairs Analyst: Jersey Dahl MD #### CDP, CP #### [address] [place], [place] [address]383 Regulatory Affairs Analyst: Kayley Doll MD Protein [Mass/Vol] 7.4 g/dL Normal 6.4-8.3 [facility] Comment on above: Performed By: #### L IPR #### [address] [address] Regulatory Affairs Analyst: Jersey Dahl MD #### CDP, CP #### [address] [place], [place] [address] Regulatory Affairs Analyst: Kayley Doll MD Sodium [Moles/Vol] 150 mmol/L High 135-144 [facility] Comment on above: Performed By: #### L IPR #### [address] [place], [place] [address] Regulatory Affairs Analyst: Jersey Dahl MD #### CDP, CP #### [facility] [address] [place] [address] Regulatory Affairs Analyst: Kayley Doll MD Urea nitrogen [Mass/Vol] 40 mg/dL High 8-23 [facility] Comment on above: Performed By: #### L IPR #### [facility] [address] [place], [place] [address]70[address] Regulatory Affairs Analyst: Jersey Dahl MD #### MARLIN, CP #### [facility] [address] [place] [address] Regulatory Affairs Analyst: Kayley Doll MD Comprehensive Metabolic Pane [facility] 10-04-2022 Albumin [Mass/Vol] 3.9 g/dL 3.5 - 5.2 g/dL [facility] Albumin/Globulin [Mass ratio] 1.1 {ratio} 1.0 - 2.5 [facility] ALP [Catalytic activity/Vol] 99 U/L 35 - 104 U/L [facility] ALT [Catalytic activity/Vol] 27 U/L 5 - 33 U/L [facility] Anion gap [Moles/Vol] 10 mmol/L 9 - 17 mmol/L [facility] AST [Catalytic activity/Vol] 21 U/L NINF - 32 U/L [facility] Bilirubin [Mass/Vol] 1.0 mg/dL 0.3 - 1.2 mg/dL [facility] Calcium [Mass/Vol] 10.9 mg/dL High 8.6 - 10.4 mg/dL [facility] Chloride [Moles/Vol] 110 mmol/L High 98 - 107 mmol/L [facility] CO2 [Moles/Vol] 30 mmol/L 20 - 31 mmol/L [facility] Creatinine [Mass/Vol] 0.99 mg/dL High 0.50 - 0.90 mg/dL [facility] GFR/1.73 sq M.predicted MDRD (S/P/Bld) [Vol rate/Area] - PINF [facility] Comment on above: These results [...] [Mass/Vol] 80 mg/dL 70 - 99 mg/dL [facility] Interpretation and review of laboratory results Abnormal [facility] Potassium [Moles/Vol] 3.5 mmol/L Low 3.7 - 5.3 mmol/L [facility] Protein [Mass/Vol] 7.4 g/dL 6.4 - 8.3 g/dL [facility] Sodium [Moles/Vol] 150 mmol/L High 135 - 144 mmol/L [facility] Urea nitrogen [Mass/Vol] 40 mg/dL High 8 - 23 mg/dL [facility] Urea nitrogen/Creatinin e (Bld) [Mass ratio] 40 High 9 - 20 [facility] Thyroxine T4on 10-04-2022 T4 [Mass/Vol] 10.7 ug/dL Normal 4.5-10.9 [facility] Comment on above: Performed By: #### L IPR #### [address] [place], [place] [id number] Regulatory Affairs Analyst: Jersey Dahl MD #### CDP, CP #### [facility] [address] [place] [address] Regulatory Affairs Analyst: Kayley Doll MD Triiodothyronine T3on 2022 Triiodothyronine T3 63 ng/dL Normal 60-181 [facility] Comment on above: Performed By: #### L IPR #### [facility] 5 CUPS and some sugar [facility] [place], [place] [id number] Regulatory Affairs Analyst: Jersey Dahl MD #### CDP, CP #### [facility] [address] [place] [address] [place] [address] Regulatory Affairs Analyst: Kayley Doll MD T3, Freeon 10-03-2022 Free T3 [Mass/Vol] 1.96 pg/mL Low 2.02-4.43 [facility] Comment on above: Performed By: #### L IPR #### [address] [id number] Regulatory Affairs Analyst: Jersey Dahl MD #### CDP, CP #### [facility] [address] [place] [address] [place] [address] Regulatory Affairs Analyst: Kayley Doll MD TSHon 10-03-2022 TSH Qn 0.39 m[IU]/L [facility] Thyroid Stim. Horm.on 2022 Thyroid Stim. Horm. 0.39 uIU/mL Normal 0.30-5.00 [facility] Comment on above: Performed By: #### T 4, FT4, T3, FT3 #### [address] [address] Regulatory Affairs Analyst: Jersey Dahl MD #### TSH #### [address] [place] [address] Regulatory Affairs Analyst: Kayley Doll MD Thyroxine, Freeon 10-03-2022 Thyroxine, Free 1.5 ng/dL Normal 0.9-1.[address] [facility] Comment on above: Performed By: #### L IPR #### [address] [address] Regulatory Affairs Analyst: Jersey Dahl MD #### CDP, CP #### [facility] [address] [place] [address] [place] [address] Regulatory Affairs Analyst: Kayley Doll MD ACETAMINOPHENon 09-28-2022 Acetaminophen [Mass/Vol] ug/mL Critically low 10.0-30.0 [facility] Comment on above: Performed By: #### S ALYC, ACET, ETH ####[facility] [address] [place] [address]Dr. Soniya Chi BNPon 09-28-2022 Natriuretic peptide B (Bld) [Mass/Vol] 70.0 pg/mL Normal <=900.0 [facility] Comment on above: Performed By: #### T SH, CMP, BNP, CMADM ####[facility] [address] [place] [address]Dr. Soniya Chi CARDIAC HAYDER ADMITon 023 CK [Catalytic activity/Vol] 19 U/L Critically low 26-192 [facility] Comment on above: Performed By: #### T SH, CMP, BNP, CMADM ####[facility] [address]lc58[address] [place] [address]Dr. Soniya Chi CK.MB [Mass/Vol] 1.97 ng/mL Normal <=3.60 [facility] Comment on above: Performed By: #### T SH, CMP, BNP, CMADM ####[facility] I[address] [place], [place] [address]Dr. Soniya Chi HSTROP 16.3 pg/mL Normal 4.0-51.3 [facility] Comment on above: Result Comment: CUT- OFF POINTS HAVE BEEN ESTABLISHED BASED ON THE FOURTH UNIVERSAL DEFINITIONS OF MYOCARDIALINFARCTION. THE UPPER REFERENCE LIMIT (URL) OF TROPONIN, DEFINED THE 99TH PERCENTILE OFcTnI DISTRIBUTION IN A REFERENCE POPULATION, HAS BEEN CONFIRMED THE DECISION THRESHOLDFOR MO DIAGNOSIS. Performed By: #### T SH, CMP, BNP, CMADM ####[facility] Xyeagr[address]im[address] [place] [address]Dr. Soniya Chi PALMIRA 68 ng/mL Normal 9-82 [facility] Comment on above: Performed By: #### T SH, CMP, BNP, CMADM ####[facility] [address]fr[address] [place] [address]Dr. Soniya Chi CBC AUTO DIFFon 09-28-2022 BASO # 0.0 103/ul Normal 0.0-0.1 [facility] Comment on above: Performed By: #### C BC ####[facility] [address]taltj[address] [place] [phone]. Soniya Chi Basophils/100 WBC (Bld) 0.2 % Normal 0.2-2.0 [facility] Comment on above: Performed By: #### C BC ####[facility] B[address] [place], [place] [address]Dr. Soniya Chi EO # 0.0 103/ul Normal 0.0-0.7 [facility] Comment on above: Performed By: #### C BC ####[facility] Sxiotwxsu[address] [place], [place] [address]Dr. Soniya Chi Eosinophils/100 WBC (Bld) 0.3 % Critically low 0.9-7.0 [facility] Comment on above: Performed By: #### C BC ####[facility] Eqnebkbg[address] [place], [place] [address]Dr. Soniya Chi Erythrocyte distribution width (RBC) [Ratio] 15.8 % Critically high 11.0-15.0 [facility] Comment on above: Performed By: #### C BC ####[facility] Y[address]ld[address]ju[address] [place], [place] [address]Dr. Soniya Chi Hematocrit (Bld) [Volume fraction] 30.1 % Critically low 36.0-48.0 [facility] Comment on above: Performed By: #### C BC ####[facility] [address]muhma[address] [place], [place] [address]Dr. Soniya Chi Hemoglobin (Bld) [Mass/Vol] 9.9 g/dL Critically low 12.0-16.0 [facility] Comment on above: Performed By: #### C BC ####[facility] Adjahetjiv[address] [place], [place] [address]Dr. Soniya Chi IG # 0.02 10e3/ul Normal 0.00-0.03 [facility] Comment on above: Performed By: #### C BC ####[facility] Pvfgof[address] [place], [place] [address]Dr. Soniya Chi IG % 0.2 % Normal 0.0-0.5 [facility] Comment on above: Performed By: #### C BC ####[facility] S[address]uzsbyd50[address] [place] [phone]. Soniya Alon LYMPH # 0.5 103/ul Critically low 1.2-3.8 [facility] Comment on above: Performed By: #### C BC ####[facility] Xxixmdtqyy17[address] [place] [phone]. Gypsyjuan Chi Lymphocytes/100 WBC (Bld) 5.2 % Critically low 20.5-60.0 [facility] Comment on above: Performed By: #### C BC ####[facility] [address] [place] [phone]. Soniya Chi MANUAL DIFF REQ NO Normal [facility] Comment on above: Performed By: #### C BC ####[facility] [address]iq[address]p1389 [place] [phone]. Soniya Chi MCH (RBC) [Entitic mass] 31.2 pg Normal 26.7-34.0 [facility] Comment on above: Performed By: #### C BC ####[facility] Girpxemfpk9[address] [place] [phone]. Gypsyjuan Chi MCHC (RBC) [Mass/Vol] 32.9 g/dL Normal 29.9-35.2 [facility] Comment on above: Performed By: #### C BC ####[facility] Aw[address]wa[address]oz[address]40[address] [place] [phone]. Soniya Chi MCV (RBC) [Entitic vol] 95.0 fL Normal 81.0-99.0 [facility] Comment on above: Performed By: #### C BC ####[facility] Scrixbedug[address]1 [place] [address]Dr. Soniya Chi MONO # 0.5 103/ul Normal 0.3-0.8 [facility] Comment on above: Performed By: #### C BC ####[facility] Injjihcnfy[address] [place] [phone]. Soniya Chi Monocytes/100 WBC (Bld) 4.6 % Normal 1.7-12.0 [facility] Comment on above: Performed By: #### C BC ####[facility] B[address]xhfurbn5[address] [place] [phone]. Soniya Chi NEUT # 8.9 103/ul Critically high 1.4-6.5 [facility] Comment on above: Performed By: #### C BC ####[facility] Fosdacqeam28[address] [place] [phone]. Soniya Chi Neutrophils/100 WBC (Bld) 89.5 % Critically high 43.0-75.0 [facility] Comment on above: Performed By: #### C BC ####[facility] Gaycvoylmg6154 [place] [phone]. Soniya Chi Platelet mean volume (Bld) [Entitic vol] 9.9 fL Normal 9.5-13.5 [facility] Comment on above: Performed By: #### C BC ####[facility] Olf[address]vvya5[address] [place] [address]Dr. Soniya Chi PLT 163 103/ul Normal 150-450 [facility] Comment on above: Performed By: #### C BC ####[facility] Jay[address] [place], [place] [address]Dr. Soniya Chi RBC 3.17 106/ul Critically low 4.20-5.40 [facility] Comment on above: Performed By: #### C BC ####[facility] Cxlftlcbbu16[address] [place] [phone]. Soniya Chi WBC 9.9 103/ul Normal 4.0-11.0 [facility] Comment on above: Performed By: #### C BC ####[facility] Q[address] [place] [phone]. Soniya Chi CT HEAD WO CONon 09-28-2022 CT HEAD WO CON Normal [facility] CULTURE BLOODon 09-28-2022 Microscopic examination of blood, culture Culture Observations: NO GROWTH AT 5 DAYS. Normal [facility] Comment on above: Performed By: #### B LDCX2 ####[facility] [address] [place] [phone]. Soniya Alon Microscopic examination of blood, culture Culture Observations: NO GROWTH AT 5 DAYS. Normal [facility] Comment on above: Performed By: #### B LDCX1 ####[facility] Njiguwvzgc2946 [place] [phone]. Soniya Chi [facility]-01 SARS-CoV-2 (COVID-19) RNA DORIAN+probe Ql (Unsp spec) Not detected Normal NOT DETECTED [facility] Comment on above: Result Comment: This test is not yet approved or cleared by the [place] FDA. When there are no FDA-approved or cleared tests available, and other criteria are met, FDA can make tests available under an emergency access mechanism called an Emergency Use Authorization (EUA). The EUA for this test is supported by the [place] of Health and Human Service's (HHS's) declaration [...] with SARS-CoV-2. Performed By: #### C VDTBH ####[facility] U[address]ub[address] [place] [phone]. Soniya Alon DRUG SCREEN RAPID (URINE)on 09-28-2022 AMP Negative Normal NEGATIVE [facility] Comment on above: Performed By: #### D RUGRPD ####[facility] [address] [place], [place] [address]Gg. Gypsyjuan Chi BAR Negative Normal NEGATIVE [facility] Comment on above: Performed By: #### D RUGRPD ####[facility] Lxtlehmots9792 [place], [place] [address]Dn. Soniya Chi BUP Negative Normal NEGATIVE [facility] Comment on above: Performed By: #### D RUGRPD ####[facility] Ec[address]qu[address] [place], [place] [address]Dr. Soniya Chi BZO Negative Normal NEGATIVE [facility] Comment on above: Performed By: #### D RUGRPD ####[facility] C[address]rotipko[address] [place], [place] [address]Dr. Soniya Chi MARIAH Negative Normal NEGATIVE [facility] Comment on above: Performed By: #### D RUGRPD ####[facility] Wlpwwrhpta[address] [place], [place] [address]Dr. Soniya Chi CUT-OFFS SEE BELOW Normal [facility] Comment on above: Result Comment: AMP (Amphetamine): 500ng/mL, BAR (Barbituates): 200 ng/mL, BZO (Benzodiazepines): 150 ng/mL, BUP (Buprenorphine): 10 ng/mL, MARIAH (Cocaine): 150 ng/mL, mAMP (Methamphetamine): 500 ng/mL, MTD (Methadone): 200 ng/mL, OPI (Opiates): 100 ng/mL, OXY (Oxycodone): 100 ng/mL, PCP (Phencyclidine): 25 ng/mL, PPX (Propoxyphene): 300 ng/mL, THC (Cannabinoids): 50 ng/mL, TCA (Trycyclic Antidepressants): 300 ng/mL Performed By: #### D RUGRPD ####[facility] Y[address]mjrm[address] [place], [place] [address]Dr. Soniya Chi DRUG CUT HEADER DRUG CLASS TEST SYSTEM CUT-OFF CONCENTRATIONS ARE FOLLOWS: Normal [facility] Comment on above: Performed By: #### D RUGRPD ####[facility] Shhw[address]zezss[address] [place], [place] [address]Dr. Soniya Chi mAMP Negative Normal NEGATIVE [facility] Comment on above: Performed By: #### D RUGRPD ####[facility] Jispvxglny[address] [place], [place] [address]Dr. Soniya Chi MTD Negative Normal NEGATIVE [facility] Comment on above: Performed By: #### D RUGRPD ####[facility] Pdntorbigp[address] [place], [place] [address]Dr. Soniya Chi OPI Negative Normal NEGATIVE [facility] Comment on above: Performed By: #### D RUGRPD ####[facility] X[address]atddl8[address] [place] [address]Dr. Soniya Chi OXY Negative Normal NEGATIVE [facility] Comment on above: Performed By: #### D RUGRPD ####[facility] Hgkrwyigsx0724 [place] [address]Dr. Soniya Chi PCP Negative Normal NEGATIVE [facility] Comment on above: Performed By: #### D RUGRPD ####[facility] N[address] [place], [place] [address]Dr. Soniya Chi PPX Negative Normal NEGATIVE [facility] Comment on above: Performed By: #### D RUGRPD ####[facility] D[address]ugldgqz[address] [place], [place] [address]Dr. Soniya Chi TCA Negative Normal NEGATIVE [facility] Comment on above: Performed By: #### D RUGRPD ####[facility] X[address]lozv[address] [place], [place] [address]Dr. Soniya Chi THC Negative Normal NEGATIVE [facility] Comment on above: Performed By: #### D RUGRPD ####[facility] Gfdimebqzc5[address] [place], [place] [address]Dr. Soniya Chi ER URINE PROFILEon 3 Bilirubin Ql (U) Negative Normal NEGATIVE [facility] Comment on above: Performed By: #### E RUR ####[facility] Bl[address]qfpmk[address] [place], [place] [address]Dr. Soniya Chi Clarity (U) CLEAR Normal CLEAR [facility] Comment on above: Performed By: #### E RUR ####[facility] Eulnhivjsd[address] [place], [place] [address]Dr. Soniya Chi Color (U) LT. YELLOW Normal YELLOW [facility] Comment on above: Performed By: #### E RUR ####[facility] [address]vqjxgc[address] [place], [place] [address]Dr. Soniya Chi ERUAHD A micrscopic examination will be performed if indicated. Normal [facility] Comment on above: Performed By: #### E RUR ####[facility] Jx[address]wibqfw4803 [place] [address]Dr. Soniya Chi Glucose Ql (U) Negative Normal NEGATIVE [facility] Comment on above: Performed By: #### E RUR ####[facility] Ympmp[address]tyvw[address] [place], [place] [address]Dr. Soniya Chi Hemoglobin Ql (U) Negative Normal NEGATIVE [facility] Comment on above: Performed By: #### E RUR ####[facility] Qvoxidejpw15[address] [place], [place] [address]Dr. Soniya Chi Ketones Ql (U) Negative Normal NEGATIVE [facility] Comment on above: Performed By: #### E RUR ####[facility] Vobgsravjs65[address] [place], [place] [address]Dr. Soniya Chi LEUKOCYTES Negative Normal NEGATIVE [facility] Comment on above: Performed By: #### E RUR ####[facility] Htagfrgank[address] [place], [place] [address]Dr. Soniya Chi Nitrite Ql (U) Negative Normal NEGATIVE [facility] Comment on above: Performed By: #### E RUR ####[facility] Lwoetwerrn[address] [place], [place] [address]Dr. Soniya Chi pH (U) 5.0 [pH] Normal 5-9 [facility] Comment on above: Performed By: #### E RUR ####[facility] Mffhvrqclc[address] [place], [place] [address]Dr. Gypsyjuan Alon SPEC GRAVITY 1.025 Normal 1.005-<=1.025 [facility] Comment on above: Performed By: #### E RUR ####[facility] Hzfzvjkshn[address] [place], [place] [address]Dr. Soniya Chi UA PROTEIN Negative Normal NEGATIVE/ TRACE [facility] Comment on above: Performed By: #### E RUR ####[facility] Fvhltutxhx[address] [place], [place] [address]Dr. Soniya Chi UR MICRO IND NOT INDICATED Normal [facility] Comment on above: Performed By: #### E RUR ####[facility] Xpxgndkrar[address] [place], [place] [address]Dr. Soniya Chi Urobilinogen Qn (U) 0.2 {Casimiro'U}/dL Normal 0.2 - 1.0 [facility] Comment on above: Performed By: #### E RUR ####[facility] [address]xy[address] [place] [address]Dr. Soniya Chi ETHANOL (BLD ALC)on 09-29-19 23 ALC NOTE NOTE: 80 mg/dl is the legal limit for a blood alcohol level Normal [facility] Comment on above: Performed By: #### S ALYC, ACET, ETH ####[facility] Gsf[address]upnxl3[address] [place] [address]Dr. Soniya Alon Ethanol [Mass/Vol] mg/dL Normal [facility] Comment on above: Performed By: #### S ALYC, ACET, ETH ####[facility] Xgrrwbdcio[address] [place], [place] [address]Dr. Soniya Chi FREE T3on 09-28-2022 FREE T3 2.81 pg/mlL Normal 2.18-3.98 [facility] Comment on above: Performed By: #### F T3 ####[facility] V[address] [place], [place] [address]Dr. Soniya Alon LACTATE/LACTIC ACIDon 2022 Lactate [Moles/Vol] 0.6 mmol/L Normal 0.4-2.0 [facility] Comment on above: Performed By: #### L ACT ####[facility] E[address]ro[address]dx[address] [place], [place] [address]Dr. Gypsyjuan Chi PROF 14(COMP METB)on 023 Albumin [Mass/Vol] 3.4 g/dL Normal 3.4-5.0 [facility] Comment on above: Performed By: #### T SH, CMP, BNP, CMADM ####[facility] Eyqroyploo[address] [place], [place] [address]Dr. Soniya Alon Albumin/Globulin [Mass ratio] 0.9 {ratio} Normal [facility] Comment on above: Performed By: #### T SH, CMP, BNP, CMADM ####[facility] Pcqlseymma3235 [place] [address]Dr. Soniya Chi ALP [Catalytic activity/Vol] 113 U/L Normal 46-116 [facility] Comment on above: Performed By: #### T SH, CMP, BNP, CMADM ####[facility] Wferbfvcny6844 [place] [address]Dr. Soniya Chi ALT [Catalytic activity/Vol] 37 U/L Normal 14-59 [facility] Comment on above: Performed By: #### T SH, CMP, BNP, CMADM ####[facility] Eaxpzcjeyi0545 [place] [address]Dr. Soniya Chi Anion gap [Moles/Vol] 11.6 mmol/L Normal [facility] Comment on above: Performed By: #### T SH, CMP, BNP, CMADM ####[facility] Egnxozflta8412 [place] [address]Dr. Soniya Chi AST [Catalytic activity/Vol] 19 U/L Normal 15-37 [facility] Comment on above: Performed By: #### T SH, CMP, BNP, CMADM ####[facility] Guygtvqrdg5482 [place] [address]Dr. Soniya Chi Bilirubin [Mass/Vol] 0.4 mg/dL Normal 0.2-1.0 [facility] Comment on above: Performed By: #### T SH, CMP, BNP, CMADM ####[facility] Pghnjwnznj2241 [place] [address]Dr. Soniya Chi Calcium [Mass/Vol] 10.1 mg/dL Normal 8.5-10.1 [facility] Comment on above: Performed By: #### T SH, CMP, BNP, CMADM ####[facility] Actergtwqw7161 [place] [address]Dr. Soniya Chi Chloride [Moles/Vol] 107 mmol/L Normal 98-107 [facility] Comment on above: Performed By: #### T SH, CMP, BNP, CMADM ####[facility] Ahwvvemhpo3604 [place] [address]Dr. Soniya Chi CO2 [Moles/Vol] 29.9 mmol/L Normal 21.0-32.0 [facility] Comment on above: Performed By: #### T SH, CMP, BNP, CMADM ####[facility] Cdkmqdyokl4090 [place] [address]Dr. Soniya Chi Creatinine [Mass/Vol] 1.11 mg/dL Critically high 0.55-1.02 [facility] Comment on above: Performed By: #### T SH, CMP, BNP, CMADM ####[facility] Yjdnbkgxbm9979 [place] [address]Dr. Soniya Chi EGFR-AF JAPANESE 59 mL/min/1.73m2 Critically low >=60 [facility] Comment on above: Performed By: #### T SH, CMP, BNP, CMADM ####[facility] Tfdqihbbyh5099 [place] [address]Dr. Gypsyjuan Chi EGFR-NON AF JAPANESE 49 mL/min/1.73m2 Critically low >=60 [facility] Comment on above: Performed By: #### T SH, CMP, BNP, CMADM ####[facility] [address]prntqhk[address] [place], [place] [address]Dr. Soniya Chi Globulin (S) [Mass/Vol] 4.0 g/dL Normal [facility] Comment on above: Performed By: #### T SH, CMP, BNP, CMADM ####[facility] Cznwygnwas9180 [place] [address]Dr. Soniya Chi Glucose [Mass/Vol] 89 mg/dL Normal 74-106 [facility] Comment on above: Performed By: #### T SH, CMP, BNP, CMADM ####[facility] Ismutjfgcg7435 [place] [address]Dr. Gypsyjuan Chi Potassium [Moles/Vol] 4.5 mmol/L Normal 3.5-5.1 [facility] Comment on above: Performed By: #### T SH, CMP, BNP, CMADM ####[facility] [address] [place] [address]Dr. Soniya Chi Protein [Mass/Vol] 7.4 g/dL Normal 6.4-8.2 [facility] Comment on above: Performed By: #### T SH, CMP, BNP, CMADM ####[facility] Hzudijqqik[address] [place] [address]Dr. Soniya Chi Sodium [Moles/Vol] 144 mmol/L Normal 136-145 [facility] Comment on above: Performed By: #### T SH, CMP, BNP, CMADM ####[facility] Acocoigmod[address] [place] [address]Dr. Soniya Chi Urea nitrogen [Mass/Vol] 19.0 mg/dL Critically high 7.0-18.0 [facility] Comment on above: Performed By: #### T SH, CMP, BNP, CMADM ####[facility] Jaowboerga[address] [place], [place] [address]Dr. Soniya Chi Urea nitrogen/Creatinin e [Mass ratio] 17.1 mg/mg Normal [facility] Comment on above: Performed By: #### T SH, CMP, BNP, CMADM ####[facility] [address] [place], [place] [address]Dr. Soniya Chi PROTIMEon 09-28-2022 INR Coag (PPP) [Relative time] 1.01 {INR} Normal [facility] Comment on above: Performed By: #### P T, PTT ####[facility] [address]fqve[address] [place], [place] [address]Dr. Soniya Chi INR GUIDELINES SEE BELOW Normal The [facility] Comment on above: Result Comment: SHARON RED INR: 2.0 - 3.0 CONDITIONS NOT LISTED BELOW 2.5 - 3.5 FOR PROSTHETIC HEART VALVE REPLACEMENT 2.5 - 3.5 RECURRENT THROMBOSIS Performed By: #### P T, PTT ####[facility] [address]tv[address] [place], [place] [address]Dr. Soniya Chi PT Coag (PPP) [Time] 10.7 s Normal 9.0-11.6 [facility] Comment on above: Performed By: #### P T, PTT ####[facility] Lebvdtdbxe[address] [place], [place] [address]Dr. Soniya Chi PTTon 04-29-2023 aPTT Coag (Bld) [Time] 36.7 s Critically high 22.3-36.2 [facility] Comment on above: Performed By: #### P T, PTT ####[facility] [address]vhcjtz[address] [place] [id number]. Soniya Chi SALICYLATEon 09-28-2022 SALICYLATE <2.8 Normal <=19.9 [facility] Comment on above: Performed By: #### S ALYC, ACET, ETH ####[facility] Dtlpqyweyr[address] [place] [id number]. Soniya Chi SYMPTOMATIC COVID-19 ANTIGEN on 09-28-2022 EUA Statement SEE BELOW Normal The [facility] Comment on above: Result Comment: This [...] revoked sooner. Performed By: #### C VDAGS ####[facility] Nfccmvyoms63[address] [place] [address]Dr. Soniya Chi SARS-CoV-2 (COVID-19) RNA DORIAN+probe Ql (Unsp spec) Negative Normal NEGATIVE [facility] Comment on above: Performed By: #### C VDAGS ####[facility] Efsrsckuzn60[address] [place] [address]Dr. Soniya Chi T4on 09-28-2022 T4 [Mass/Vol] 13.20 ug/dL Normal 4.80-13.90 [facility] Comment on above: Performed By: #### T 4 ####[facility] Jgfyygesdn99[address] [place] [address]Dr. Soniya Chi TSHon 09-28-2022 TSH 0.188 uIU/mL Critically low 0.358-3.740 The [facility] Comment on above: Performed By: #### T SH, CMP, BNP, CMADM ####[facility] Akbipljgkw[address] [place] [id number]. Gypsyjuan Alon XR CHEST 1 Von 09-28-2022 XR CHEST 1 V Normal [facility] CBC AUTO DIFFon 09-16-2022 BASO # 0.0 103/ul Normal 0.0-0.1 [facility] Comment on above: Performed By: #### C BC ####[facility] Pjl[address]ntpli[address] [place] [address]Dr. Soniya Chi Basophils/100 WBC (Bld) 0.4 % Normal 0.2-2.0 [facility] Comment on above: Performed By: #### C BC ####[facility] Qvwsrywhag5860 [place] [address]Dr. Soniya Chi EO # 0.1 103/ul Normal 0.0-0.7 [facility] Comment on above: Performed By: #### C BC ####[facility] Iozjszydwx4275 [place] [address]Dr. Soniya Chi Eosinophils/100 WBC (Bld) 1.7 % Normal 0.9-7.0 [facility] Comment on above: Performed By: #### C BC ####[facility] Tugyiyqmgq9435 [place] [address]Dr. Soniya Chi Erythrocyte distribution width (RBC) [Ratio] 15.9 % Critically high 11.0-15.0 [facility] Comment on above: Performed By: #### C BC ####[facility] Kmqkathbxi99[address] [place] [address]Dr. Soniya Chi Hematocrit (Bld) [Volume fraction] 30.6 % Critically low 36.0-48.0 [facility] Comment on above: Performed By: #### C BC ####[facility] Azwdbbztin0883 [place] [address]Dr. Soniya Chi Hemoglobin (Bld) [Mass/Vol] 9.9 g/dL Critically low 12.0-16.0 [facility] Comment on above: Performed By: #### C BC ####[facility] Eyxpknvwmj3137 [place] [address]Dr. Soniya Chi IG # 0.01 10e3/ul Normal 0.00-0.03 [facility] Comment on above: Performed By: #### C BC ####[facility] Wlkvzasnlh1523 [place] [address]Dr. Soniya Chi IG % 0.2 % Normal 0.0-0.5 [facility] Comment on above: Performed By: #### C BC ####[facility] Rofwgohqhz[address] [place], [place] [address]DrKarolina Chi LYMPH # 1.2 103/ul Normal 1.2-3.8 [facility] Comment on above: Performed By: #### C BC ####[facility] Wguevzbrgv[address] [place], [place] [address]Dr. Soniya Chi Lymphocytes/100 WBC (Bld) 22.4 % Normal 20.5-60.0 [facility] Comment on above: Performed By: #### C BC ####[facility] Tcguyztetg[address] [place], [place] [address]DrKarolina Chi MANUAL DIFF REQ NO Normal [facility] Comment on above: Performed By: #### C BC ####[facility] Civnveurqr[address] [place], [place] [address]Dr. Soniya Chi MCH (RBC) [Entitic mass] 30.9 pg Normal 26.7-34.0 [facility] Comment on above: Performed By: #### C BC ####[facility] Nxhzfuvple9[address] [place], [place] [address]Dr. Soniya Chi MCHC (RBC) [Mass/Vol] 32.4 g/dL Normal 29.9-35.2 [facility] Comment on above: Performed By: #### C BC ####[facility] Ieclhzgatl5[address] [place], [place] [address]Dr. Soniya Chi MCV (RBC) [Entitic vol] 95.6 fL Normal 81.0-99.0 [facility] Comment on above: Performed By: #### C BC ####[facility] Hnkstldqri6[address] [place] [address]DrKarolina Soniya Chi MONO # 0.4 103/ul Normal 0.3-0.8 [facility] Comment on above: Performed By: #### C BC ####[facility] Vapzvcbotq0866 [place] [address]DrKarolina Chi Monocytes/100 WBC (Bld) 6.9 % Normal 1.7-12.0 [facility] Comment on above: Performed By: #### C BC ####[facility] Xwzwqvsskb[address] [place], [place] [address]DrKarolina Soniya Chi NEUT # 3.6 103/ul Normal 1.4-6.5 [facility] Comment on above: Performed By: #### C BC ####[facility] Dsjqvnykeg[address] [place], [place] [address]DrKarolina Chi Neutrophils/100 WBC (Bld) 68.4 % Normal 43.0-75.0 [facility] Comment on above: Performed By: #### C BC ####[facility] Sivohervll[address] [place], [place] [address]DrKarolina Gypsyjuan Chi Platelet mean volume (Bld) [Entitic vol] 9.5 fL Normal 9.5-13.5 [facility] Comment on above: Performed By: #### C BC ####[facility] Jhbfjbsihb[address] [place], [place] [address]Dr. Soniya Alon PLT 219 103/ul Normal 150-450 [facility] Comment on above: Performed By: #### C BC ####[facility] Nwedptoqch[address] [place], [place] [id number] Chi RBC 3.20 106/ul Critically low 4.20-5.40 [facility] Comment on above: Performed By: #### C BC ####[facility] Gfmphkgtab3548 [place] [id number] hCi WBC 5.2 103/ul Normal 4.0-11.0 [facility] Comment on above: Performed By: #### C BC ####[facility] Gwdxwuohkl44[address] [place] [address]Dr. Soniya Chi PROF CHEM 8 (BAS METB)on Anion gap [Moles/Vol] 10.5 mmol/L Normal [facility] Comment on above: Performed By: #### B MP ####[facility] Aumjssvvye3906 [place] [address]DrKarolina Chi Calcium [Mass/Vol] 10.1 mg/dL Normal 8.5-10.1 [facility] Comment on above: Performed By: #### B MP ####[facility] Yushprygvx[address] [place], [place] [address]Dr. Soniya Chi Chloride [Moles/Vol] 107 mmol/L Normal 98-107 [facility] Comment on above: Performed By: #### B MP ####[facility] Jncnguexrl45[address] [place], [place] [address]DrKarolina Chi CO2 [Moles/Vol] 29.9 mmol/L Normal 21.0-32.0 [facility] Comment on above: Performed By: #### B MP ####[facility] Aqlqwfemxg24[address] [place], [place] [address]DrKarolina Chi Creatinine [Mass/Vol] 1.27 mg/dL Critically high 0.55-1.02 [facility] Comment on above: Performed By: #### B MP ####[facility] Ydjxzjbzks[address] [place], [place] [address]DrKarolina Chi EGFR-AF JAPANESE 51 mL/min/1.73m2 Critically low >=60 [facility] Comment on above: Performed By: #### B MP ####[facility] S[address]rtcxus[address] [place], [place] [address]DrKarolina Chi EGFR-NON AF JAPANESE 42 mL/min/1.73m2 Critically low >=60 [facility] Comment on above: Performed By: #### B MP ####[facility] H[address]cpfj[address] [place], [place] [address]DrKarolina Chi Glucose [Mass/Vol] 92 mg/dL Normal 74-106 [facility] Comment on above: Performed By: #### B MP ####[facility] [address]cnkfnpeec[address] [place] [phone]. Soniya Chi Potassium [Moles/Vol] 4.4 mmol/L Normal 3.5-5.1 [facility] Comment on above: Performed By: #### B MP ####[facility] Hxfaqynovi95[address] [place] [id number]. Soniya Alon Sodium [Moles/Vol] 143 mmol/L Normal 136-145 [facility] Comment on above: Performed By: #### B MP ####[facility] Gkeakfvnfh[address] [place] [id number]. Soniya Chi Urea nitrogen [Mass/Vol] 28.0 mg/dL Critically high 7.0-18.0 [facility] Comment on above: Performed By: #### B MP ####[facility] [address]jrciwcy[address] [place] [id number]. Soniya Chi Urea nitrogen/Creatinin e [Mass ratio] 22.0 mg/mg Normal [facility] Comment on above: Performed By: #### B MP ####[facility] [address]pou[address]xby[address] [place] [id number]. Soniya Chi Basic Metabolic Panelon 08-01 Anion gap [Moles/Vol] 11 mmol/L 9 - 17 mmol/L [facility] Via6 Calcium [Mass/Vol] 10.0 mg/dL 8.6 - 10.4 mg/dL [facility] Via6 Chloride [Moles/Vol] 105 mmol/L 98 - 107 mmol/L [facility] CO2 [Moles/Vol] 28 mmol/L 20 - 31 mmol/L [facility] Creatinine [Mass/Vol] 1.06 mg/dL High 0.50 - 0.90 mg/dL [facility] GFR/1.73 sq M.predicted MDRD (S/P/Bld) [Vol rate/Area] 58 mL/min/{1.73_m2} Low - [facility] Comment on above: These results are [...] [Mass/Vol] 89 mg/dL 70 - 99 mg/dL [facility] Interpretation and review of laboratory results Abnormal [facility] Potassium [Moles/Vol] 4.2 mmol/L 3.7 - 5.3 mmol/L [facility] Sodium [Moles/Vol] 144 mmol/L 135 - 144 mmol/L [facility] Urea nitrogen [Mass/Vol] 18 mg/dL 8 - 23 mg/dL [facility] Urea nitrogen/Creatinin e (Bld) [Mass ratio] 17 9 - 20 [facility] Basic Metabolic Profon 08-27 Anion gap [Moles/Vol] 11 mmol/L Normal 9-17 [facility] Comment on above: Performed By: #### B LONI, TSH #### [facility] [address] [place] [address] [place] [address] Regulatory Affairs Analyst: Kayley Doll MD BUN/CRE Ratio 17 Normal 9-20 [facility] Comment on above: Performed By: #### B LONI, TSH #### [facility] [address] [place] [address] Regulatory Affairs Analyst: Kayley Doll MD Calcium [Mass/Vol] 10.0 mg/dL Normal 8.6-10.4 [facility] Comment on above: Performed By: #### B LONI, TSH #### [facility] [address] [place] [address] Regulatory Affairs Analyst: Kayley Doll MD Chloride [Moles/Vol] 105 mmol/L Normal 98-107 [facility] Comment on above: Performed By: #### B LONI, TSH #### [facility] [address] [place], [place] [id number] Regulatory Affairs Analyst: Kayley Doll MD CO2 [Moles/Vol] 28 mmol/L Normal 20-[address] [facility] Comment on above: Performed By: #### B MP, TSH #### [facility] [address] [place], [place] [id number] Regulatory Affairs Analyst: Kayley Doll MD Creatinine [Mass/Vol] 1.06 mg/dL High 0.50-0.90 [facility] Comment on above: Performed By: #### B LONI, TSH #### [facility] [address] [place] [address] Regulatory Affairs Analyst: Kayley Doll MD GFR/1.73 sq M.predicted among non-blacks MDRD (S/P/Bld) [Vol rate/Area] 58 mL/min/{1.73_m2} Low >60 [facility] Comment on above: Result Comment: These [...] Performed By: #### B LONI, TSH #### [facility] [address] [place] [address] Regulatory Affairs Analyst: Kayley Doll MD Glucose [Mass/Vol] 89 mg/dL Normal 70-99 [facility] Comment on above: Performed By: #### B LONI, TSH #### [facility] [address] [place] [address] Regulatory Affairs Analyst: Kayley Doll MD Potassium [Moles/Vol] 4.2 mmol/L Normal 3.7-5.3 [facility] Comment on above: Performed By: #### B LONI, TSH #### [facility] [address] [place] [address] Regulatory Affairs Analyst: Kayley Doll MD Sodium [Moles/Vol] 144 mmol/L Normal 135-144 [facility] Comment on above: Performed By: #### B MP, TSH #### [facility] [address] [place] [address] Regulatory Affairs Analyst: Kayley Doll MD Urea nitrogen [Mass/Vol] 18 mg/dL Normal 8-23 [facility] Comment on above: Performed By: #### B MP, TSH #### [facility] [address] [place] [address] Regulatory Affairs Analyst: Kayley Doll MD Cult,Urineon 08-27-2022 Cult,Urine Specimen Description .CLEAN CATCH URINE Culture NO SIGNIFICANT GROWTH Report Status FINAL 08/26/2022 Normal [facility] Comment on above: Performed By: #### U #### [facility] [address] [place], [place] [id number] Regulatory Affairs Analyst: Jersey Dahl MD [facility] [address] [place] [address] Regulatory Affairs Analyst: Kayley Doll MD No Panel Informationon 08-27 [facility] TSHon 08-27-2022 TSH Qn 3.78 m[IU]/L [facility] Thyroid Stim. Horm.on 2022 Thyroid Stim. Horm. 3.78 uIU/mL Normal 0.30-5.00 [facility] Comment on above: Performed By: #### B MP, TSH #### [facility] [address] [place] [address] Regulatory Affairs Analyst: Kayley Doll MD Urinalysison 08-25-2022 Bilirubin Urine Negative NEGATIVE [facility] Color, UA Yellow Yellow [facility] Glucose Auto test strip (U) [Mass/Vol] Negative NEGATIVE [facility] Interpretation and review of laboratory results Abnormal [facility] Ketones (U) [Mass/Vol] Negative NEGATIVE [facility] Leukocyte esterase Auto test strip Ql (U) Negative NEGATIVE [facility] Nitrite Auto test strip Ql (U) Negative NEGATIVE [facility] Protein (U) [Mass/Vol] 7.0 mg/dL 5.0 - 9.0 [facility] Protein (U) [Mass/Vol] Negative NEGATIVE [facility] Specific [place], UA Low 1.010 - 1.020 [facility] Turbidity UA Clear Clear [facility] Urine Hgb Negative NEGATIVE [facility] Urobilinogen, Urine Normal Normal [facility] Urinalysis, Routineon 2022 Bilirubin, SemiQt,Ur Negative Normal NEG [facility] Comment on above: Performed By: #### U A #### [facility] [address] [place] [address] [place] [address] Regulatory Affairs Analyst: Kayley Doll MD Blood, Urine Negative Normal NEG [facility] Comment on above: Performed By: #### U A #### [facility] [address] [place], [place] [id number] Regulatory Affairs Analyst: Kayley Doll MD Clarity (U) Clear Normal CLEAR [facility] Comment on above: Performed By: #### U A #### [facility] [address] [place] [address] Dr. [place], [place] [id number] Regulatory Affairs Analyst: Kayley Doll MD Color (U) Yellow Normal YEL [facility] Comment on above: Performed By: #### U A #### [facility] [address] [place] [address] Regulatory Affairs Analyst: Kayley Doll MD Glucose Ql (U) Negative Normal NEG [facility] Comment on above: Performed By: #### U A #### [facility] [address] [place] [address] Regulatory Affairs Analyst: Kayley Doll MD Ketones Ql (U) Negative Normal NEG [facility] Comment on above: Performed By: #### U A #### [facility] [address] [place], [place] [id number] Regulatory Affairs Analyst: Kayley Doll MD Leukocyte esterase Test strip Ql (U) Negative Normal NEG [facility] Comment on above: Performed By: #### U A #### [facility] [address] [place], [facility] Regulatory Affairs Analyst: Kayley Doll MD Nitrite,Ur Negative Normal NEG [facility] Comment on above: Performed By: #### U A #### [facility] [address] [place] [address] Dr. [place], [facility] Regulatory Affairs Analyst: Kayley Doll MD PH,Ur 7.0 Normal 5.0-9.0 [facility] Comment on above: Performed By: #### U A #### [facility] [address] [place] [address] Dr. [place], [facility]83 Regulatory Affairs Analyst: Kayley Doll MD Protein Ql (U) Negative Normal NEG [facility] Comment on above: Performed By: #### U A #### [facility] [address] [place] [address] Dr. [place], [facility]83 Regulatory Affairs Analyst: Kayley Doll MD Spec. [place],Ur <1.005 Low 1.010-1.020 [facility] Comment on above: Performed By: #### U A #### [facility] [address] [place], [facility] Regulatory Affairs Analyst: Kayley Doll MD Urobilinogen,Ur Normal Normal NORM [facility] Comment on above: Performed By: #### U A #### [facility] [address] [place] [address] [place] [address] Regulatory Affairs Analyst: Kayley Doll MD CBC AUTO DIFFon 08-22-2022 BASO # 0.0 103/ul Normal 0.0-0.1 [facility] Comment on above: Performed By: #### C BC ####[facility] Hmrpelaknc[address] [place] [id number]. Soniya Chi Basophils/100 WBC (Bld) 0.4 % Normal 0.2-2.0 [facility] Comment on above: Performed By: #### C BC ####[facility] [address]xscezi[address] [place], [place] [address]Dr. Soniya Chi EO # 0.2 103/ul Normal 0.0-0.7 [facility] Comment on above: Performed By: #### C BC ####[facility] Uuvtoxonif[address] [place], [place] [address]Dr. Soniya Chi Eosinophils/100 WBC (Bld) 2.7 % Normal 0.9-7.0 [facility] Comment on above: Performed By: #### C BC ####[facility] [address] [place], [place] [address]Dr. Soniya Chi Erythrocyte distribution width (RBC) [Ratio] 15.1 % Critically high 11.0-15.0 [facility] Comment on above: Performed By: #### C BC ####[facility] Opmrsumikf[address] [place], [place] [address]Dr. Soniya Chi Hematocrit (Bld) [Volume fraction] 24.2 % Critically low 36.0-48.0 [facility] Comment on above: Performed By: #### C BC ####[facility] Is[address] [place], [place] [address]Dr. Soniya Chi Hemoglobin (Bld) [Mass/Vol] 8.0 g/dL Critically low 12.0-16.0 [facility] Comment on above: Performed By: #### C BC ####[facility] [address] [place], [place] [address]Dr. Soniya Chi IG # 0.03 10e3/ul Normal 0.00-0.03 [facility] Comment on above: Performed By: #### C BC ####[facility] E[address]fmzr[address] [place], [place] [address]Dr. Soniya Chi IG % 0.5 % Normal 0.0-0.5 [facility] Comment on above: Performed By: #### C BC ####[facility] Mrbmixvftk3[address] [place] [id number]. Soniya Alon LYMPH # 1.3 103/ul Normal 1.2-3.8 [facility] Comment on above: Performed By: #### C BC ####[facility] Ljuitrvqoi[address] [place] [id number]. Soniya Chi Lymphocytes/100 WBC (Bld) 23.4 % Normal 20.5-60.0 [facility] Comment on above: Performed By: #### C BC ####[facility] Mfswmeterq0724 [place] [id number]. Soniya Chi MANUAL DIFF REQ NO Normal [facility] Comment on above: Performed By: #### C BC ####[facility] Bypajigyew[address] [place] [id number]. Soniya Chi MCH (RBC) [Entitic mass] 30.8 pg Normal 26.7-34.0 [facility] Comment on above: Performed By: #### C BC ####[facility] Vokewwyhak[address] [place] [id number]. Soniya Alon MCHC (RBC) [Mass/Vol] 33.1 g/dL Normal 29.9-35.2 [facility] Comment on above: Performed By: #### C BC ####[facility] Knsmmltunw[address] [place] [id number]. Soniya Chi MCV (RBC) [Entitic vol] 93.1 fL Normal 81.0-99.0 [facility] Comment on above: Performed By: #### C BC ####[facility] [address] [place] [address]Dr. Soniya Chi MONO # 0.6 103/ul Normal 0.3-0.8 [facility] Comment on above: Performed By: #### C BC ####[facility] Umxhhvtxgi9650 [place] [id number]. Soniya Chi Monocytes/100 WBC (Bld) 10.3 % Normal 1.7-12.0 [facility] Comment on above: Performed By: #### C BC ####[facility] Cxnairmxxl2639 [place] [id number]. Soniya Chi NEUT # 3.5 103/ul Normal 1.4-6.5 [facility] Comment on above: Performed By: #### C BC ####[facility] Dfwqjzsqah4[address] [place] [id number]. Soniya Chi Neutrophils/100 WBC (Bld) 62.7 % Normal 43.0-75.0 [facility] Comment on above: Performed By: #### C BC ####[facility] Thkwznpvea[address] [place] [id number]. Soniya Chi Platelet mean volume (Bld) [Entitic vol] 10.6 fL Normal 9.5-13.5 [facility] Comment on above: Performed By: #### C BC ####[facility] [address]wsbemnqhg74[address] [place] [id number]. Soniya Chi PLT 133 103/ul Critically low 150-450 [facility] Comment on above: Performed By: #### C BC ####[facility] Rpohspfyrp[address] [place] [id number]. Soniya Chi RBC 2.60 106/ul Critically low 4.20-5.40 [facility] Comment on above: Performed By: #### C BC ####[facility] Zuehjiuzkv4013 [place] [id number]. Soniya Chi WBC 5.6 103/ul Normal 4.0-11.0 [facility] Comment on above: Performed By: #### C BC ####[facility] Dmmimmrina2522 [place] [id number]. Soniya Chi PROF 14(COMP METB)on 023 Albumin [Mass/Vol] 2.3 g/dL Critically low 3.4-5.0 [facility] Comment on above: Performed By: #### C MP, TSH ####[facility] Jmklyqkcox2320 [place] [id number]. Soniya Chi Albumin/Globulin [Mass ratio] 0.8 {ratio} Normal [facility] Comment on above: Performed By: #### C MP, TSH ####[facility] Vuhffqvhyp6176 [place] [phone]. Soniya Chi ALP [Catalytic activity/Vol] 80 U/L Normal 46-116 [facility] Comment on above: Performed By: #### C MP, TSH ####[facility] Mpdwktwkbu9870 [place] [phone]. Soniya Chi ALT [Catalytic activity/Vol] 23 U/L Normal 14-59 [facility] Comment on above: Performed By: #### C MP, TSH ####[facility] Tycqkfwahv6582 [place] [phone]. Soniya Chi Anion gap [Moles/Vol] 9.7 mmol/L Normal [facility] Comment on above: Performed By: #### C MP, TSH ####[facility] Ftvtipqdyr3054 [place] [address]Dr. Soniya Chi AST [Catalytic activity/Vol] 20 U/L Normal 15-37 [facility] Comment on above: Performed By: #### C MP, TSH ####[facility] Omdvjuhkmc4566 [place] [phone]. Soniya Chi Bilirubin [Mass/Vol] 0.6 mg/dL Normal 0.2-1.0 [facility] Comment on above: Performed By: #### C MP, TSH ####[facility] Hjhfhhpwym3932 [place] [phone]. Soniya Chi Calcium [Mass/Vol] 8.7 mg/dL Normal 8.5-10.1 [facility] Comment on above: Performed By: #### C MP, TSH ####[facility] Zabagyhict6584 [place] [phone]. Soniya Chi Chloride [Moles/Vol] 105 mmol/L Normal 98-107 [facility] Comment on above: Performed By: #### C MP, TSH ####[facility] Ohckrrwrtz2197 [place] [phone]. Soniya Chi CO2 [Moles/Vol] 30.0 mmol/L Normal 21.0-32.0 [facility] Comment on above: Performed By: #### C MP, TSH ####[facility] Fjseesplqq9831 [place] [address]Dr. Soniya Chi Creatinine [Mass/Vol] 0.96 mg/dL Normal 0.55-1.02 [facility] Comment on above: Performed By: #### C MP, TSH ####[facility] Nzceyzzses6431 [place] [address]Dr. Soniya Chi EGFR-AF JAPANESE >60 Normal >=60 [facility] Comment on above: Performed By: #### C MP, TSH ####[facility] Loeyrssvcg6431 [place] [address]Dr. Soniya Chi EGFR-NON AF JAPANESE 58 mL/min/1.73m2 Critically low >=60 [facility] Comment on above: Performed By: #### C MP, TSH ####[facility] Jnjwkvplsd0876 [place] [address]Dr. Soniya Chi Globulin (S) [Mass/Vol] 2.8 g/dL Normal [facility] Comment on above: Performed By: #### C MP, TSH ####[facility] Xafuqdmrks4866 [place] [address]Dr. Soniya Chi Glucose [Mass/Vol] 96 mg/dL Normal 74-106 [facility] Comment on above: Performed By: #### C MP, TSH ####[facility] Miuvmfzxip3455 [place] [address]Dr. Soniya Chi Potassium [Moles/Vol] 2.7 mmol/L Critically low 3.5-5.1 [facility] Comment on above: Performed By: #### C MP, TSH ####[facility] Ayhnstfnvm3432 [place] [address]Dr. Soniya Alon Protein [Mass/Vol] 5.1 g/dL Critically low 6.4-8.2 [facility] Comment on above: Performed By: #### C MP, TSH ####[facility] Kwfypkvsff6539 [place] [address]Dr. Soniya Chi Sodium [Moles/Vol] 141 mmol/L Normal 136-145 [facility] Comment on above: Performed By: #### C MP, TSH ####[facility] Zmhzfoftve323[address] [place], [place] [address]Dr. Soniya Chi Urea nitrogen [Mass/Vol] 17.0 mg/dL Normal 7.0-18.0 [facility] Comment on above: Performed By: #### C MP, TSH ####[facility] Rgftkfrzsa7[address] [place], [place] [address]Dr. Soniya Chi Urea nitrogen/Creatinin e [Mass ratio] 17.7 mg/mg Normal [facility] Comment on above: Performed By: #### C MP, TSH ####[facility] Onvkbxlmgr1393[address] [place], [place] [address]Dr. Soniya Chi TSHon 08-22-2022 TSH 2.840 uIU/mL Normal 0.358-3.740 [facility] Comment on above: Performed By: #### C MP, TSH ####[facility] Qlwrnbykcm2749[address] [place], [place] [address]Dr. Soniya Chi CBC AUTO DIFFon 08-21-2022 BASO # 0.0 103/ul Normal 0.0-0.1 [facility] Comment on above: Performed By: #### C BC ####[facility] Vdfgzwxuiq7747[address] [place], [place] [address]Dr. Soniya Chi Basophils/100 WBC (Bld) 0.3 % Normal 0.2-2.0 [facility] Comment on above: Performed By: #### C BC ####[facility] Zezxwfecnh2616[address] [place], [place] [address]Dr. Soniya Chi EO # 0.1 103/ul Normal 0.0-0.7 [facility] Comment on above: Performed By: #### C BC ####[facility] Rqusyzemvb2415[address] [place], [place] [address]Dr. Soniya Chi Eosinophils/100 WBC (Bld) 0.9 % Normal 0.9-7.0 [facility] Comment on above: Performed By: #### C BC ####[facility] Prmwdcjvjh7382 [place] [address]Dr. Soniya Chi Erythrocyte distribution width (RBC) [Ratio] 15.1 % Critically high 11.0-15.0 [facility] Comment on above: Performed By: #### C BC ####[facility] Yfozyxdqaw3574 [place] [address]Dr. Soniya Chi Hematocrit (Bld) [Volume fraction] 27.3 % Critically low 36.0-48.0 [facility] Comment on above: Performed By: #### C BC ####[facility] Xzmuzysznh869[address] [place], [place] [address]Dr. Soniya Chi Hemoglobin (Bld) [Mass/Vol] 8.9 g/dL Critically low 12.0-16.0 [facility] Comment on above: Performed By: #### C BC ####[facility] Itmalaqxtn3218[address] [place], [place] [address]Dr. Soniya Chi IG # 0.03 10e3/ul Normal 0.00-0.03 [facility] Comment on above: Performed By: #### C BC ####[facility] Jgzzyotmxo1066[address] [place], [place] [address]Dr. Gypsyjuan Chi IG % 0.5 % Normal 0.0-0.5 [facility] Comment on above: Performed By: #### C BC ####[facility] Ycwanwnfsn0936[address] [place], [place] [address]Dr. Soniya Chi LYMPH # 1.0 103/ul Critically low 1.2-3.8 [facility] Comment on above: Performed By: #### C BC ####[facility] Vuscmggwwd9776[address] [place], [place] [address]Dr. Soniya Chi Lymphocytes/100 WBC (Bld) 14.9 % Critically low 20.5-60.0 [facility] Comment on above: Performed By: #### C BC ####[facility] Spgdidkwcv0860[address] [place], [place] [address]Dr. Gypsyjuan Chi MANUAL DIFF REQ NO Normal [facility] Comment on above: Performed By: #### C BC ####[facility] Xboguzlzyb6756 [place] [phone]. Soniya Chi MCH (RBC) [Entitic mass] 31.2 pg Normal 26.7-34.0 [facility] Comment on above: Performed By: #### C BC ####[facility] Kdetymdzpn1767 [place] [phone]. Soniya Chi MCHC (RBC) [Mass/Vol] 32.6 g/dL Normal 29.9-35.2 [facility] Comment on above: Performed By: #### C BC ####[facility] Xeeqanfruc[address] [place], [place] [id number]. Soniya Chi MCV (RBC) [Entitic vol] 95.8 fL Normal 81.0-99.0 [facility] Comment on above: Performed By: #### C BC ####[facility] Nhlbyhaylq5360[address] [place], [place] [address]Dr. Soniya Chi MONO # 0.6 103/ul Normal 0.3-0.8 [facility] Comment on above: Performed By: #### C BC ####[facility] Tiafqiaggt094[address] [place], [place] [address]Dr. Soniya Chi Monocytes/100 WBC (Bld) 8.8 % Normal 1.7-12.0 [facility] Comment on above: Performed By: #### C BC ####[facility] Mwqxmvuuop8946[address] [place], [place] [address]Dr. Soniya Chi NEUT # 4.9 103/ul Normal 1.4-6.5 [facility] Comment on above: Performed By: #### C BC ####[facility] Upzmwbkdqh36[address] [place], [place] [id number]. Soniya Chi Neutrophils/100 WBC (Bld) 74.6 % Normal 43.0-75.0 [facility] Comment on above: Performed By: #### C BC ####[facility] Ppmxpsnvgq6875[address] [place], [place] [address]Dr. Soniya Chi Platelet mean volume (Bld) [Entitic vol] 10.7 fL Normal 9.5-13.5 [facility] Comment on above: Performed By: #### C BC ####[facility] Fqarwrbjdd5137 [place] [phone]. Soniya Chi PLT 127 103/ul Critically low 150-450 [facility] Comment on above: Performed By: #### C BC ####[facility] Nnvgzdyzqe5829 [place] [phone]. Soniya Chi RBC 2.85 106/ul Critically low 4.20-5.40 [facility] Comment on above: Performed By: #### C BC ####[facility] Kwvkfdcrcl9731 [place] [phone]. Soniya Chi WBC 6.6 103/ul Normal 4.0-11.0 [facility] Comment on above: Performed By: #### C BC ####[facility] Wvalopsrui4008 [place] [address]Dr. Soniya Alon PROF 14(COMP METB)on 023 Albumin [Mass/Vol] 2.8 g/dL Critically low 3.4-5.0 [facility] Comment on above: Performed By: #### T TIFFANIE, CMP ####[facility] Gwtnhkgbmb027[address] [place], [place] [address]Dr. Soniya Chi Albumin/Globulin [Mass ratio] 0.8 {ratio} [facility] Comment on above: Performed By: #### T TIFFANIE, CMP ####[facility] Rbcyyjuhil3376 [place] [address]Dr. Soniya Chi ALP [Catalytic activity/Vol] 101 U/L Normal 46-116 [facility] Comment on above: Performed By: #### T SH, CMP ####[facility] Aijqqfxgtv7716 [place] [address]Dr. Soniya Alon ALT [Catalytic activity/Vol] 27 U/L Normal 14-59 [facility] Comment on above: Performed By: #### T SH, CMP ####[facility] Cuzcmfpxvh6314 [place] [address]Dr. Soniya Chi Anion gap [Moles/Vol] 15.6 mmol/L Normal [facility] Comment on above: Performed By: #### T SH, CMP ####[facility] Jrmziielov8714 [place] [address]Dr. Soniya Chi AST [Catalytic activity/Vol] 23 U/L Normal 15-37 [facility] Comment on above: Performed By: #### T SH, CMP ####[facility] Joxutnoozm8540[address] [place], [place] [address]Dr. Soniya Chi Bilirubin [Mass/Vol] 0.9 mg/dL Normal 0.2-1.0 [facility] Comment on above: Performed By: #### T SH, CMP ####[facility] Qhqptlanot7260[address] [place], [place] [address]Dr. Soniya Chi Calcium [Mass/Vol] 9.1 mg/dL Normal 8.5-10.1 [facility] Comment on above: Performed By: #### T SH, CMP ####[facility] Btyiaycake2056[address] [place], [place] [address]Dr. Soniya Chi Chloride [Moles/Vol] 108 mmol/L Critically high 98-107 [facility] Comment on above: Performed By: #### T SH, CMP ####[facility] Lyuomdbqpz002[address] [place], [place] [address]Dr. Soniya Chi CO2 [Moles/Vol] 25.8 mmol/L Normal 21.0-32.0 [facility] Comment on above: Performed By: #### T SH, CMP ####[facility] Rqlxbvavpv6277[address] [place], [place] [address]Dr. Soniya Chi Creatinine [Mass/Vol] 1.01 mg/dL Normal 0.55-1.02 [facility] Comment on above: Performed By: #### T SH, CMP ####[facility] Ijmexmjomc6440[address] [place], [place] [address]Dr. Soniya Chi EGFR-AF JAPANESE >60 Normal >=60 [facility] Comment on above: Performed By: #### T SH, CMP ####[facility] Fvtdjxhgnl2216[address] [place], [place] [address]Dr. Soniya Chi EGFR-NON AF JAPANESE 55 mL/min/1.73m2 Critically low >=60 [facility] Comment on above: Performed By: #### T SH, CMP ####[facility] Cdmnirfeno259[address] [place], [place] [address]Dr. Soniya Chi Globulin (S) [Mass/Vol] 3.3 g/dL Normal [facility] Comment on above: Performed By: #### T SH, CMP ####[facility] Wxepaiuumb0736[address] [place], [place] [address]Dr. Soniya Chi Glucose [Mass/Vol] 68 mg/dL Critically low 74-106 [facility] Comment on above: Performed By: #### T SH, CMP ####[facility] Zmpdzzqbki7646[address] [place], [place] [address]Dr. Soniya Chi Potassium [Moles/Vol] 3.4 mmol/L Critically low 3.5-5.1 [facility] Comment on above: Performed By: #### T SH, CMP ####[facility] Paedsppbnz6329[address] [place], [place] [address]Dr. Soniya Chi Protein [Mass/Vol] 6.1 g/dL Critically low 6.4-8.2 [facility] Comment on above: Performed By: #### T SH, CMP ####[facility] Mnkjyjckgv382[address] [place], [place] [address]Dr. Soniya Alon Sodium [Moles/Vol] 146 mmol/L Critically high 136-[address] [facility] Comment on above: Performed By: #### T SH, CMP ####[facility] Ogtxitdknl7567[address] [place], [place] [address]Dr. Soniya Chi Urea nitrogen [Mass/Vol] 21.0 mg/dL Critically high 7.0-18.0 [facility] Comment on above: Performed By: #### T SH, CMP ####[facility] Chkiplwvhe2823[address] [place], [place] [address]Dr. Gypsyjuan Alon Urea nitrogen/Creatinin e [Mass ratio] 20.8 mg/mg Normal [facility] Comment on above: Performed By: #### T SH, CMP ####[facility] Xcrgrghbgi829[address] [place], [place] [address]Dr. Soniya Chi TSHon 08-21-2022 TSH 4.750 uIU/mL Critically high 0.358-3.740 [facility] Comment on above: Performed By: #### T SH, CMP ####[facility] Higvcrakbp6939[address] [place], [place] [address]Dr. Soniya Chi CBC AUTO DIFFon 08-20-2022 BASO # 0.0 103/ul Normal 0.0-0.1 [facility] Comment on above: Performed By: #### C BC ####[facility] Ewzitbthsb6669[address] [place], [place] [address]Dr. Soniya Chi Basophils/100 WBC (Bld) 0.3 % Normal 0.2-2.0 [facility] Comment on above: Performed By: #### C BC ####[facility] Cmbppxdjbq1349[address] [place], [place] [address]Dr. Soniya Chi EO # 0.0 103/ul Normal 0.0-0.7 [facility] Comment on above: Performed By: #### C BC ####[facility] Piarbeswkg4459[address] [place], [place] [address]Dr. Soniya Chi Eosinophils/100 WBC (Bld) 0.6 % Critically low 0.9-7.0 [facility] Comment on above: Performed By: #### C BC ####[facility] Imosoaxdqx2514[address] [place], [place] [address]Dr. Soniya Chi Erythrocyte distribution width (RBC) [Ratio] 15.5 % Critically high 11.0-15.0 [facility] Comment on above: Performed By: #### C BC ####[facility] Sktoxjyauh4474[address] [place], [place] [address]Dr. Soniya Chi Hematocrit (Bld) [Volume fraction] 26.7 % Critically low 36.0-48.0 [facility] Comment on above: Performed By: #### C BC ####[facility] Foyalcwjsv8747[address] [place], [place] [address]Dr. Soniya Chi Hemoglobin (Bld) [Mass/Vol] 8.7 g/dL Critically low 12.0-16.0 [facility] Comment on above: Performed By: #### C BC ####[facility] Esswcfwksk7475 [place] [id number]. Soniya Chi IG # 0.02 10e3/ul Normal 0.00-0.03 [facility] Comment on above: Performed By: #### C BC ####[facility] Fgijabaxna2408 [place] [id number]. Soniya Chi IG % 0.3 % Normal 0.0-0.5 [facility] Comment on above: Performed By: #### C BC ####[facility] Wwhxasqzqz1727 [place] [address]Dr. Soniya Chi LYMPH # 0.9 103/ul Critically low 1.2-3.8 [facility] Comment on above: Performed By: #### C BC ####[facility] Kbyhtxeafv8367 [place] [address]Dr. Gypsyjuan Chi Lymphocytes/100 WBC (Bld) 12.8 % Critically low 20.5-60.0 [facility] Comment on above: Performed By: #### C BC ####[facility] Exzizwlmlw9516 [place] [address]Dr. Soniya Chi MANUAL DIFF REQ NO Normal [facility] Comment on above: Performed By: #### C BC ####[facility] Zqrgeztazg6823 [place] [address]Dr. Soniya Chi MCH (RBC) [Entitic mass] 30.7 pg Normal 26.7-34.0 [facility] Comment on above: Performed By: #### C BC ####[facility] Lizzjeaprk4874 [place] [address]Dr. Soniya Chi MCHC (RBC) [Mass/Vol] 32.6 g/dL Normal 29.9-35.2 [facility] Comment on above: Performed By: #### C BC ####[facility] Xdzpvwnorw4324 [place] [address]Dr. Soniya Chi MCV (RBC) [Entitic vol] 94.3 fL Normal 81.0-99.0 [facility] Comment on above: Performed By: #### C BC ####[facility] Qehnrxzhsy7974 [place] [id number]. Soniya Chi MONO # 0.6 103/ul Normal 0.3-0.8 [facility] Comment on above: Performed By: #### C BC ####[facility] Zfixlwhluz8438 [place] [id number]. Soniya Chi Monocytes/100 WBC (Bld) 9.4 % Normal 1.7-12.0 [facility] Comment on above: Performed By: #### C BC ####[facility] Rpasedcgpc0156 [place] [phone]. Soniya Chi NEUT # 5.1 103/ul Normal 1.4-6.5 [facility] Comment on above: Performed By: #### C BC ####[facility] Kilqxggkqu5403 [place] [id number]. Soniya Chi Neutrophils/100 WBC (Bld) 76.6 % Critically high 43.0-75.0 [facility] Comment on above: Performed By: #### C BC ####[facility] Jynflrlcaa6063 [place] [id number]. Soniya Chi Platelet mean volume (Bld) [Entitic vol] 11.6 fL Normal 9.5-13.5 [facility] Comment on above: Performed By: #### C BC ####[facility] Pizyhwngnk7453 [place] [id number]. Soniya Chi PLT 113 103/ul Critically low 150-450 [facility] Comment on above: Performed By: #### C BC ####[facility] Xzwtvfnzgc4723 [place] [id number]. Soniya Chi RBC 2.83 106/ul Critically low 4.20-5.40 [facility] Comment on above: Performed By: #### C BC ####[facility] Irfbzmsshv0717 [place] [id number]. Soniya Chi WBC 6.6 103/ul Normal 4.0-11.0 [facility] Comment on above: Performed By: #### C BC ####[facility] Iaispipmoy286[address] [place], [place] [address]Dr. Soniya Chi CULTURE URINEon 08-20-2022 CULTURE URINE Normal [facility] Comment on above: Performed By: #### U RCX ####[facility] Oiicksurnb59[address] [place], [place] [address]Dr. Soniya Chi PROF 14(COMP METB)on 023 Albumin [Mass/Vol] 2.7 g/dL Critically low 3.4-5.0 [facility] Comment on above: Performed By: #### C MP, TSH ####[facility] Rbukgktaqy8125 [place] [address]Dr. Soniya Chi Albumin/Globulin [Mass ratio] 0.9 {ratio} Normal [facility] Comment on above: Performed By: #### C MP, TSH ####[facility] Dddnzzbape0117[address] [place], [place] [address]Dr. Soniya Chi ALP [Catalytic activity/Vol] 83 U/L Normal 46-116 [facility] Comment on above: Performed By: #### C MP, TSH ####[facility] Sjasaufyrx5722 [place] [address]Dr. Soniya Chi ALT [Catalytic activity/Vol] 29 U/L Normal 14-59 [facility] Comment on above: Performed By: #### C MP, TSH ####[facility] Hjipltvjmp3253 [place] [address]Dr. Soniya Chi Anion gap [Moles/Vol] 12.3 mmol/L Normal [facility] Comment on above: Performed By: #### C MP, TSH ####[facility] Qrklijlkcy232[address] [place], [place] [address]Dr. Soniya Chi AST [Catalytic activity/Vol] 21 U/L Normal 15-37 [facility] Comment on above: Performed By: #### C MP, TSH ####[facility] Ixtretazwh2960 [place] [address]Dr. Soniya Chi Bilirubin [Mass/Vol] 1.2 mg/dL Critically high 0.2-1.0 [facility] Comment on above: Performed By: #### C MP, TSH ####[facility] Meseweumoz3867 [place] [address]Dr. Soniya Chi Calcium [Mass/Vol] 9.3 mg/dL Normal 8.5-10.1 [facility] Comment on above: Performed By: #### C MP, TSH ####[facility] Zcaluqnbww3034 [place] [address]Dr. Soniya Chi Chloride [Moles/Vol] 109 mmol/L Critically high 98-107 [facility] Comment on above: Performed By: #### C MP, TSH ####[facility] Kysvkyfbtb7279 [place] [address]Dr. Soniya Chi CO2 [Moles/Vol] 27.1 mmol/L Normal 21.0-32.0 [facility] Comment on above: Performed By: #### C MP, TSH ####[facility] Zhowcljswi[address] [place], [place] [address]Dr. Soniya Chi Creatinine [Mass/Vol] 1.13 mg/dL Critically high 0.55-1.02 [facility] Comment on above: Performed By: #### C MP, TSH ####[facility] Amrtykxgui86[address] [place], [place] [address]Dr. Soniya Chi EGFR-AF JAP[place]ESE 58 mL/min/1.73m2 Critically low >=60 [facility] Comment on above: Performed By: #### C MP, TSH ####[facility] Lefyyiudva6[address] [place], [place] [address]Dr. Soniya Chi EGFR-NON AF [place]ESE 48 mL/min/1.73m2 Critically low >=60 [facility] Comment on above: Performed By: #### C MP, TSH ####[facility] Rqnysbxzue1501 [place] [address]Dr. Soniya Chi Globulin (S) [Mass/Vol] 3.1 g/dL Normal [facility] Comment on above: Performed By: #### C MP, TSH ####[facility] Ldbfeeoiqo7859 [place] [address]Dr. Soniya Chi Glucose [Mass/Vol] 80 mg/dL Normal 74-106 [facility] Comment on above: Performed By: #### C MP, TSH ####[facility] Ynwuqvrdyn0921 [place] [address]Dr. Gypsyjuan Alon Potassium [Moles/Vol] 3.4 mmol/L Critically low 3.5-5.1 [facility] Comment on above: Performed By: #### C MP, TSH ####[facility] Iyvbstggga9045 [place] [address]Dr. Soniya Chi Protein [Mass/Vol] 5.8 g/dL Critically low 6.4-8.2 Th [facility] Comment on above: Performed By: #### C MP, TSH ####[facility] Cbqumzqulf9593 [place] [address]Dr. Soniya Chi Sodium [Moles/Vol] 145 mmol/L Normal 136-145 [facility] Comment on above: Performed By: #### C LONI, TSH ####[facility] Lrcpxacsgx[address] [place], [place] [address]Dr. Soniya Chi Urea nitrogen [Mass/Vol] 23.0 mg/dL Critically high 7.0-18.0 [facility] Comment on above: Performed By: #### C LONI, TSH ####[facility] Fauvcttnry[address] [place], [place] [address]Dr. Gypsyjuan Chi Urea nitrogen/Creatinin e [Mass ratio] 20.4 mg/mg Normal [facility] Comment on above: Performed By: #### C LONI, TSH ####[facility] Duigxllrzn93[address] [place], [place] [address]Dr. Soniya Chi TSHon 08-20-2022 TSH 6.050 uIU/mL Critically high 0.358-3.740 [facility] Comment on above: Performed By: #### C MP, TSH ####[facility] Kllzpvamjk[address] [place], [place] [address]Dr. Soniya Chi US THYROIDon 08-20-2022 US THYROID Normal [facility] ECHOCARDIO M/2D COMPLETEon 0 08-19-2022 ECHOCARDIO M/2D COMPLETE Normal [facility] PROF 14(COMP METB)on 03-20-2 023 Albumin [Mass/Vol] 2.8 g/dL Critically low 3.4-5.0 Th [facility] Comment on above: Performed By: #### T TIFFANIE, CMP ####[facility] Idxpnprpgr[address] [place] [address]Dr. Soniya Chi Albumin/Globulin [Mass ratio] 0.9 {ratio} Normal [facility] Comment on above: Performed By: #### T TIFFANIE, CMP ####[facility] Efxxarwqyq7229 [place] [address]Dr. Soniya Chi ALP [Catalytic activity/Vol] 95 U/L Normal 46-116 [facility] Comment on above: Performed By: #### T TIFFANIE, CMP ####[facility] Asssokhhne[address] [place], [place] [address]Dr. Soniya Chi ALT [Catalytic activity/Vol] 33 U/L Normal 14-59 [facility] Comment on above: Performed By: #### Nahun MORENO, CMP ####[facility] Ejbdrtzuga[address] [place], [place] [address]Dr. Soniya Chi Anion gap [Moles/Vol] 13.2 mmol/L Normal [facility] Comment on above: Performed By: #### Nahun MORENO, CMP ####[facility] Idgqutkmgk[address] [place], [place] [address]Dr. Soniya Chi AST [Catalytic activity/Vol] 25 U/L Normal 15-37 [facility] Comment on above: Performed By: #### Nahun MORENO, CMP ####[facility] Evfffzqylh85[address] [place], [place] [address]Dr. Soniya Chi Bilirubin [Mass/Vol] 1.1 mg/dL Critically high 0.2-1.0 [facility] Comment on above: Performed By: #### Nahun MORENO, CMP ####[facility] Rxasknsrrj8[address] [place], [place] [address]Dr. Soniya Chi Calcium [Mass/Vol] 9.4 mg/dL Normal 8.5-10.1 [facility] Comment on above: Performed By: #### Nahun MORENO, CMP ####[facility] Ggpjrwthmz[address] [place], [place] [address]Dr. Soniya Chi Chloride [Moles/Vol] 110 mmol/L Critically high 98-107 [facility] Comment on above: Performed By: #### T SH, CMP ####[facility] Sjxkvjsnnc[address] [place], [place] [address]Dr. Soniya Chi CO2 [Moles/Vol] 27.9 mmol/L Normal 21.0-32.0 [facility] Comment on above: Performed By: #### T SH, CMP ####[facility] Mxhkyvewpu6[address] [place], [place] [address]Dr. Soniya Chi Creatinine [Mass/Vol] 1.32 mg/dL Critically high 0.55-1.02 [facility] Comment on above: Performed By: #### T TIFFANIE, CMP ####[facility] Isrfgtbiqr85[address] [place], [place] [address]Dr. Soniya Chi EGFR-AF JAPANESE 49 mL/min/1.73m2 Critically low >=60 [facility] Comment on above: Performed By: #### T TIFFANIE, CMP ####[facility] Zoezbvjcfl[address] [place], [place] [address]Dr. Soniya Chi EGFR-NON AF JAPANESE 40 mL/min/1.73m2 Critically low >=60 [facility] Comment on above: Performed By: #### T TIFFANIE, CMP ####[facility] Vtizawpwbk[address] [place], [place] [address]Dr. Soniya Chi Globulin (S) [Mass/Vol] 3.1 g/dL Normal [facility] Comment on above: Performed By: #### T TIFFANIE, CMP ####[facility] Mgfhwnddgc9259[address] [place], [place] [address]Dr. Soniya Chi Glucose [Mass/Vol] 87 mg/dL Normal 74-106 [facility] Comment on above: Performed By: #### T TIFFANIE, CMP ####[facility] Wxzjekanhx744[address] [place], [place] [address]Dr. Soniya Chi Potassium [Moles/Vol] 4.1 mmol/L Normal 3.5-5.1 [facility] Comment on above: Performed By: #### T TIFFANIE, CMP ####[facility] Ggmrgmlbba60[address] [place] [id number]. Soniya Chi Protein [Mass/Vol] 5.9 g/dL Critically low 6.4-8.2 Th [facility] Comment on above: Performed By: #### T TIFFANIE, CMP ####[facility] Utenwopckb7637 [place] [phone]. Soniya Chi Sodium [Moles/Vol] 147 mmol/L Critically high 136-145 [facility] Comment on above: Performed By: #### T TIFFANIE, CMP ####[facility] Cbezpkchas2871 [place] [phone]. Soniya Chi Urea nitrogen [Mass/Vol] 21.0 mg/dL Critically high 7.0-18.0 [facility] Comment on above: Performed By: #### T TIFFANIE, CMP ####[facility] Qnvtciijta357[address] [place], [place] [address]Dr. Soniya Chi Urea nitrogen/Creatinin e [Mass ratio] 15.9 mg/mg Normal [facility] Comment on above: Performed By: #### T TIFFANIE, CMP ####[facility] Biretpzxuh[address]29[address] [place], [place] [address]Dr. Soniya Chi TSHon 08-19-2022 TSH 5.781 uIU/mL Critically high 0.358-3.740 [facility] Comment on above: Performed By: #### T TIFFANIE, CMP ####[facility] Telfomtsdc[address]62 [place] [address]Dr. Son[address] Chi CT STROKE HEAD WOon 08-19-[address] STROKE HEAD WO Normal [facility] UA RANDOM W/MICROSCOPICon BACTERIA MODERATE Abnormal NONE SEEN The [facility] Comment on above: Performed By: #### U AMIC ####[facility] Dcohnbkepr7576[address] [place], [place] [address]Dr. Soniya Chi Bilirubin Ql (U) Negative Normal NEGATIVE [facility] Comment on above: Performed By: #### U AMIC ####[facility] Revehacpmg3633 [place] [address]Dr. Soniya Chi CAST NONE SEEN Normal NONE SEEN [facility] Comment on above: Performed By: #### U AMIC ####[facility] Jxxwhewtxc7428 [place] [address]Dr. Soniya Chi Clarity (U) CLEAR Normal CLEAR [facility] Comment on above: Performed By: #### U AMIC ####[facility] Mcqntoxlyk4241 [place] [address]Dr. Soniya Chi Color (U) RED Abnormal YELLOW [facility] Comment on above: Performed By: #### U AMIC ####[facility] Ouenpohpdu6[address] [place], [place] [address]Dr. Soniya Chi Crystals LM Nom (Urine sed) NONE SEEN Normal NONE SEEN [facility] Comment on above: Performed By: #### U AMIC ####[facility] Wdrevymmpl6218[address] [place], [place] [address]Dr. Soniya Chi Epithelial cells LM Ql (Urine sed) NONE SEEN Normal NONE SEEN /RARE [facility] Comment on above: Performed By: #### U AMIC ####[facility] Thjhzbkcpb599[address] [place], [place] [address]Dr. Soniya Chi Glucose Ql (U) Negative Normal NEGATIVE [facility] Comment on above: Performed By: #### U AMIC ####[facility] Iavnqvnyru6440[address] [place], [place] [address]Dr. Soniya Chi Hemoglobin Ql (U) LARGE Abnormal NEGATIVE [facility] Comment on above: Performed By: #### U AMIC ####[facility] Gvpnibbodu9404[address] [place], [place] [address]Dr. Soniya Chi Ketones Ql (U) 40 mg/dl Abnormal NEGATIVE [facility] Comment on above: Performed By: #### U AMIC ####[facility] Iyackqxarl9356[address] [place], [place] [address]Dr. Soniya Chi LEUKOCYTES LARGE Abnormal NEGATIVE The [facility] Comment on above: Performed By: #### U AMIC ####[facility] Jgkzeevtvd5923[address] [place], [place] [address]Dr. Gypsylan Chi MUCOUS NONE SEEN Normal NONE SEEN [facility] Comment on above: Performed By: #### U AMIC ####[facility] Ysgruodnft2603 [place] [address]Dr. Soniya Chi Nitrite Ql (U) Positive Abnormal NEGATIVE [facility] Comment on above: Performed By: #### U AMIC ####[facility] Zpzjlunfbq6201[address] [place], [place] [address]Dr. Soniya Chi pH (U) 5.5 [pH] Normal 5-9 [facility] Comment on above: Performed By: #### U AMIC ####[facility] Qoieczdaxs030[address] [place], [place] [address]Dr. Soniya Chi RBC (U) [#/Vol] /uL Abnormal 0-2 [facility] Comment on above: Performed By: #### U AMIC ####[facility] Nmqtqcnbng9036[address] [place], [place] [address]Dr. Soniya Chi SPEC GRAVITY >=1.030 Abnormal 1.005-<=1.025 [facility] Comment on above: Performed By: #### U AMIC ####[facility] Ibisvmtbjk129[address] [place], [place] [address]Dr. Soniya Chi UA PROTEIN 100 mg/dl Abnormal NEGATIVE/ TRACE [facility] Comment on above: Performed By: #### U AMIC ####[facility] Ytcqgdpfae03[address] [place], [place] [address]Dr. Soniya Chi Urobilinogen Qn (U) 1.0 {Casimiro'U}/dL Normal 0.2 - 1.0 [facility] Comment on above: Performed By: #### U AMIC ####[facility] Evcahvpxpl2855[address] [place], [place] [address]Dr. Soniya Chi WBC (U) [#/Vol] /uL Abnormal NONE SEEN [facility] Comment on above: Performed By: #### U AMIC ####[facility] Tqlpvermmp8165[address] [place], [place] [address]Dr. Soniya Chi CBC AUTO DIFFon 08-17-2022 BASO # 0.0 103/ul Normal 0.0-0.1 [facility] Comment on above: Performed By: #### C BC ####[facility] Fquyritxyn8932 [place] [phone]. Soniya Chi Basophils/100 WBC (Bld) 0.2 % Normal 0.2-2.0 [facility] Comment on above: Performed By: #### C BC ####[facility] Bdxrgnaoxo[address] [place], [place] [id number]. Soniya Chi EO # 0.0 103/ul Normal 0.0-0.7 [facility] Comment on above: Performed By: #### C BC ####[facility] Kpehwgvchm110[address] [place], [place] [address]Dr. Soniya Chi Eosinophils/100 WBC (Bld) 0.6 % Critically low 0.9-7.0 [facility] Comment on above: Performed By: #### C BC ####[facility] Snhpcurmbx16[address] [place], [place] [address]Dr. Soniya Chi Erythrocyte distribution width (RBC) [Ratio] 15.1 % Critically high 11.0-15.0 [facility] Comment on above: Performed By: #### C BC ####[facility] Raorcfyqeq474[address] [place], [place] [address]Dr. Soniya Chi Hematocrit (Bld) [Volume fraction] 30.0 % Critically low 36.0-48.0 [facility] Comment on above: Performed By: #### C BC ####[facility] Vgrdesdlan[address] [place], [place] [address]Dr. Soniya Chi Hemoglobin (Bld) [Mass/Vol] 9.8 g/dL Critically low 12.0-16.0 [facility] Comment on above: Performed By: #### C BC ####[facility] Svrlogxqap0[address] [place], [place] [address]Dr. Soniya Chi IG # 0.02 10e3/ul Normal 0.00-0.03 [facility] Comment on above: Performed By: #### C BC ####[facility] Hmxcgksjul7[address] [place], [place] [address]Dr. Soniya Chi IG % 0.4 % Normal 0.0-0.5 [facility] Comment on above: Performed By: #### C BC ####[facility] Fxyyegrhbl56[address] [place] [phone]. Soniya Alon LYMPH # 0.8 103/ul Critically low 1.2-3.8 [facility] Comment on above: Performed By: #### C BC ####[facility] Osubiuwrjn1441 [place] [phone]. Gypsyjuan Chi Lymphocytes/100 WBC (Bld) 16.1 % Critically low 20.5-60.0 [facility] Comment on above: Performed By: #### C BC ####[facility] Mezuzqtngd7[address] [place] [phone]. Soniya Chi MANUAL DIFF REQ NO Normal [facility] Comment on above: Performed By: #### C BC ####[facility] Zhwherfdoc4073 [place] [phone]. Soniya Chi MCH (RBC) [Entitic mass] 30.3 pg Normal 26.7-34.0 [facility] Comment on above: Performed By: #### C BC ####[facility] Yaknofpmga16[address] [place] [phone]. Gypsyjuan Chi MCHC (RBC) [Mass/Vol] 32.7 g/dL Normal 29.9-35.2 [facility] Comment on above: Performed By: #### C BC ####[facility] Jedsdjofmf19[address] [place] [phone]. Soniya Chi MCV (RBC) [Entitic vol] 92.9 fL Normal 81.0-99.0 [facility] Comment on above: Performed By: #### C BC ####[facility] Ftrqgjnzkv5400 [place] [phone]. Soniya Chi MONO # 0.4 103/ul Normal 0.3-0.8 [facility] Comment on above: Performed By: #### C BC ####[facility] Zmqirgnaib2462 [place] [phone]. Soniya Chi Monocytes/100 WBC (Bld) 8.1 % Normal 1.7-12.0 [facility] Comment on above: Performed By: #### C BC ####[facility] Xreaxvunml9203 [place] [phone]. Soniya Chi NEUT # 3.6 103/ul Normal 1.4-6.5 [facility] Comment on above: Performed By: #### C BC ####[facility] Yomnskjbnt8088 [place], [place] [address]Qs. Soniya Chi Neutrophils/100 WBC (Bld) 74.6 % Normal 43.0-75.0 [facility] Comment on above: Performed By: #### C BC ####[facility] Tizxffqsix0299 [place] [phone]. Soniya Chi Platelet mean volume (Bld) [Entitic vol] 10.6 fL Normal 9.5-13.5 [facility] Comment on above: Performed By: #### C BC ####[facility] Xnypprpttm2621 [place] [phone]. Soniya Chi PLT 116 103/ul Critically low 150-450 [facility] Comment on above: Performed By: #### C BC ####[facility] Dkvrjcldip1430 [place] [phone]. Soniya Chi RBC 3.23 106/ul Critically low 4.20-5.40 [facility] Comment on above: Performed By: #### C BC ####[facility] Scuvbydfiv0754 [place] [phone]. Soniya Chi WBC 4.8 103/ul Normal 4.0-11.0 [facility] Comment on above: Performed By: #### C BC ####[facility] Qeuuqliklz0949 [place], [place] [address]Vz. Soniya Chi CULTURE URINEon 08-17-2022 CULTURE URINE Normal [facility] Comment on above: Performed By: #### U RCX ####[facility] Qcaojizmpq4217 [place] [phone]. Soniya Chi ACETONE SERUMon 08-16-2022 ACETONE Negative Normal NEGATIVE [facility] Comment on above: Performed By: #### A CETON ####[facility] Boimvkofhs4626 [place] [address]Dr. Soniya Chi AMMONIAon 08-16-2022 Ammonia (P) [Mass/Vol] ug/dL Critically low 11-32 [facility] Comment on above: Performed By: #### A MM ####[facility] Quhuoygvuj8[address] [place], [place] [address]Dr. Soniya Chi CBC AUTO DIFFon 08-16-2022 BASO # 0.0 103/ul Normal 0.0-0.1 [facility] Comment on above: Performed By: #### C BC ####[facility] Vkhvewkuri7850[address] [place], [place] [address]Dr. Gypsyjuan Chi Basophils/100 WBC (Bld) 0.2 % Normal 0.2-2.0 [facility] Comment on above: Performed By: #### C BC ####[facility] Btwpufrptz3[address] [place], [place] [address]Dr. Gypsyjuan Alon EO # 0.1 103/ul Normal 0.0-0.7 [facility] Comment on above: Performed By: #### C BC ####[facility] Hqhkojqviz33[address] [place], [place] [address]Dr. Soniya Alon Eosinophils/100 WBC (Bld) 1.0 % Normal 0.9-7.0 [facility] Comment on above: Performed By: #### C BC ####[facility] Wjubswxnrs[address] [place], [place] [address]Dr. Soniya Chi Erythrocyte distribution width (RBC) [Ratio] 15.3 % Critically high 11.0-15.0 [facility] Comment on above: Performed By: #### C BC ####[facility] Immfxofexk2[address] [place], [place] [address]Dr. Soniya Chi Hematocrit (Bld) [Volume fraction] 31.2 % Critically low 36.0-48.0 [facility] Comment on above: Performed By: #### C BC ####[facility] Dtkfzcmady[address] [place], [place] [address]Dr. Soniya Chi Hemoglobin (Bld) [Mass/Vol] 10.3 g/dL Critically low 12.0-16.0 [facility] Comment on above: Performed By: #### C BC ####[facility] Lznwbzejbw4548 [place] [address]Dr. Soniya Chi IG # 0.01 10e3/ul Normal 0.00-0.03 [facility] Comment on above: Performed By: #### C BC ####[facility] Hvikmjbrbe0807 [place] [address]Dr. Soniya Chi IG % 0.2 % Normal 0.0-0.5 [facility] Comment on above: Performed By: #### C BC ####[facility] Pqsynqczpa5548 [place] [address]DrKarolina Chi LYMPH # 0.8 103/ul Critically low 1.2-3.8 [facility] Comment on above: Performed By: #### C BC ####[facility] Ihvnjbcmqc8898 [place] [address]DrKarolina Chi Lymphocytes/100 WBC (Bld) 14.5 % Critically low 20.5-60.0 [facility] Comment on above: Performed By: #### C BC ####[facility] Aawdhniosa4407 [place] [address]DrKarolina Chi MANUAL DIFF REQ NO Normal [facility] Comment on above: Performed By: #### C BC ####[facility] Yinicbupyz2850 [place] [address]Dr. Soniya Chi MCH (RBC) [Entitic mass] 30.7 pg Normal 26.7-34.0 [facility] Comment on above: Performed By: #### C BC ####[facility] Zzcmsvhnes9393 [place] [address]Dr. Soniya Chi MCHC (RBC) [Mass/Vol] 33.0 g/dL Normal 29.9-35.2 [facility] Comment on above: Performed By: #### C BC ####[facility] Sfnbytcfnx8298 [place] [address]DrKarolina Chi MCV (RBC) [Entitic vol] 93.1 fL Normal 81.0-99.0 [facility] Comment on above: Performed By: #### C BC ####[facility] Guwxriwrxp5527 [place] [phone]. Soniya Chi MONO # 0.3 103/ul Normal 0.3-0.8 [facility] Comment on above: Performed By: #### C BC ####[facility] Wvllzheplz8230 [place] [phone]. Soniya Chi Monocytes/100 WBC (Bld) 5.7 % Normal 1.7-12.0 [facility] Comment on above: Performed By: #### C BC ####[facility] Hbwekhxruc3606 [place] [phone]. Soniya Chi NEUT # 4.6 103/ul Normal 1.4-6.5 [facility] Comment on above: Performed By: #### C BC ####[facility] Zqkfxkkobo4794 [place] [address]Dr. Soniya Chi Neutrophils/100 WBC (Bld) 78.4 % Critically high 43.0-75.0 [facility] Comment on above: Performed By: #### C BC ####[facility] Aijibalhjt1371 [place] [phone]. Soniya Chi Platelet mean volume (Bld) [Entitic vol] 10.3 fL Normal 9.5-13.5 [facility] Comment on above: Performed By: #### C BC ####[facility] Wjepopcmjw0413 [place] [phone]. Soniya Chi PLT 123 103/ul Critically low 150-450 [facility] Comment on above: Performed By: #### C BC ####[facility] Kacnobozdj3041 [place] [phone]. Soniya Chi RBC 3.35 106/ul Critically low 4.20-5.40 [facility] Comment on above: Performed By: #### C BC ####[facility] Fqibzribpq4351 [place] [phone]. Soniya Chi WBC 5.8 103/ul Normal 4.0-11.0 [facility] Comment on above: Performed By: #### C BC ####[facility] Nogaqmnbzk8536 [place] [phone]. Soniya Chi CPKon 08-16-2022 CK [Catalytic activity/Vol] 32 U/L Normal 26-192 [facility] Comment on above: Performed By: #### T SH, CK, HSTROPN, CMP ####[facility] Hhqiyblijk0151 [place] [phone]. Sonyia Chi CT STROKE HEAD WOon 08-17-[address] STROKE HEAD WO Normal [facility] CULTURE BLOODon 08-16-2022 Microscopic examination of blood, culture Culture Observations: NO GROWTH AT 5 DAYS. Normal [facility] Comment on above: Performed By: #### B LDCX1 ####[facility] Ktmotzhnbn1918 [place] [address]Dr. Soniya Chi Microscopic examination of blood, culture Culture Observations: NO GROWTH AT 5 DAYS. Normal [facility] Comment on above: Performed By: #### B LDCX2 ####[facility] Hjogmybwfu5374 [place] [address]Dr. Soniya Chi Covid-19 PCR (CVDTB)on 07-31 SARS-CoV-2 (COVID-19) RNA DORIAN+probe Ql (Unsp spec) Not detected Normal NOT DETECTED [facility] Comment on above: Result Comment: When [...] for this test is supported by the Director Of Enterprise Strategy of Health and Human Service's declaration that [...] be used). Performed By: #### C VDTBH ####[facility] Lxzlmrvmlh7400 [place] [address]Dr. Soniya Chi DRUG SCREEN RAPID (URINE)on 08-16-2022 AMP Negative Normal NEGATIVE [facility] Comment on above: Performed By: #### E RUR, DRUGRPD ####[facility] Aeijjgyryp4564[address] [place], [place] [address]Dr. Soniya Chi BAR Negative Normal NEGATIVE [facility] Comment on above: Performed By: #### E RUR, DRUGRPD ####[facility] Fpwvkogkgm488[address] [place], [place] [address]Dr. Soniya Chi BUP Negative Normal NEGATIVE [facility] Comment on above: Performed By: #### E RUR, DRUGRPD ####[facility] Gbfmemcuhi4069[address] [place], [place] [address]Dr. Soniya Chi BZO Negative Normal NEGATIVE [facility] Comment on above: Performed By: #### E RUR, DRUGRPD ####[facility] Tflkcblgkt9834[address] [place], [place] [address]Dr. Soniya Chi MARIAH Negative Normal NEGATIVE [facility] Comment on above: Performed By: #### E RUR, DRUGRPD ####[facility] Ljcrnhnbla0532[address] [place], [place] [address]Dr. Soniya [facility] CUT-OFFS SEE BELOW Normal [facility] Comment on above: Result Comment: AMP (Amphetamine): 500ng/mL, BAR (Barbituates): 200 ng/mL, BZO (Benzodiazepines): 150 ng/mL, BUP (Buprenorphine): 10 ng/mL, MARIAH (Cocaine): 150 ng/mL, mAMP (Methamphetamine): 500 ng/mL, MTD (Methadone): 200 ng/mL, OPI (Opiates): 100 ng/mL, OXY (Oxycodone): 100 ng/mL, PCP (Phencyclidine): 25 ng/mL, PPX (Propoxyphene): 300 ng/mL, THC (Cannabinoids): 50 ng/mL, TCA (Trycyclic Antidepressants): 300 ng/mL Performed By: #### E RUR, DRUGRPD ####[facility] Qnquyxukay1750 [place] [phone]. Soniya Chi DRUG CUT HEADER DRUG CLASS TEST SYSTEM CUT-OFF CONCENTRATIONS ARE FOLLOWS: Normal [facility] Comment on above: Performed By: #### E RUR, DRUGRPD ####[facility] Zmvctixqso7266 [place] [address]Dr. Yijuan Chi mAMP Negative Normal NEGATIVE [facility] Comment on above: Performed By: #### E RUR, DRUGRPD ####[facility] Wzayysfspm207[address] [place], [place] [address]Dr. Yijuan Chi MTD Negative Normal NEGATIVE [facility] Comment on above: Performed By: #### E RUR, DRUGRPD ####[facility] Miiodgkizg[address] [place], [place] [address]Dr. Yijuan Chi OPI Negative Normal NEGATIVE [facility] Comment on above: Performed By: #### E RUR, DRUGRPD ####[facility] Nzxpffgldx72[address] [place], [place] [address]Dr. Yilan Chi OXY Negative Normal NEGATIVE [facility] Comment on above: Performed By: #### E RUR, DRUGRPD ####[facility] Zlvyqganpb7[address] [place], [place] [address]Dr. Yilan Chi PCP Negative Normal NEGATIVE [facility] Comment on above: Performed By: #### E RUR, DRUGRPD ####[facility] Ikvvxvdobo28[address] [place], [place] [address]Dr. Yilan Chi PPX Negative Normal NEGATIVE [facility] Comment on above: Performed By: #### E RUR, DRUGRPD ####[facility] Tvorevmdoe[address] [place], [place] [address]Dr. Yilan Chi TCA Negative Normal NEGATIVE [facility] Comment on above: Performed By: #### E RUR, DRUGRPD ####[facility] [address]qvj[address]ov[address] [place], [place] [address]Dr. Yilan Chi THC Negative Normal NEGATIVE [facility] Comment on above: Performed By: #### E RUR, DRUGRPD ####[facility] Vxnecmyjwv34[address] [place], [place] [address]Dr. Soniya Chi ER URINE PROFILEon 3 Bilirubin Ql (U) Negative Normal NEGATIVE [facility] Comment on above: Performed By: #### Benoit CARTER, DRUGRPD ####[facility] Aiyciyzpap[address] [place], [place] [address]Dr. Gypsylan Chi Clarity (U) CLEAR Normal CLEAR [facility] Comment on above: Performed By: #### Benoit CARTER DRUGRPD ####[facility] Pqeeixviku56[address] [place], [place] [address]Dr. Gypsylan Chi Color (U) LT. YELLOW Normal YELLOW [facility] Comment on above: Performed By: #### Benoit CARTER DRUGRPD ####[facility] Dkaklsjjmv169[address] [place], [place] [address]Dr. Gypsyjuan Chi ERUAHD A micrscopic examination will be performed if indicated. Normal [facility] Comment on above: Performed By: #### Benoit CARTER DRUGRPD ####[facility] Wdptbxidmw77[address] [place], [place] [address]Dr. Yilan Chi Glucose Ql (U) Negative Normal NEGATIVE [facility] Comment on above: Performed By: #### Benoit CARTER DRUGRPD ####[facility] Yeynzmlxys1344[address] [place], [place] [address]Dr. Yilan Chi Hemoglobin Ql (U) Negative Normal NEGATIVE The [facility] Comment on above: Performed By: #### Benoit CARTER DRUGRPD ####[facility] Pyszlqylhv32[address] [place], [place] [address]Dr. Yilan Chi Ketones Ql (U) Negative Normal NEGATIVE [facility] Comment on above: Performed By: #### Benoit RUCharles DRUGRPD ####[facility] Yhpuknxygm[address] [place], [place] [address]Dr. Yilan Chi LEUKOCYTES Negative Normal NEGATIVE [facility] Comment on above: Performed By: #### Benoit RUR DRUGRPD ####[facility] Odfqhqbnmx[address] [place], [place] [address]Dr. Yilan Chi Nitrite Ql (U) Negative Normal NEGATIVE [facility] Comment on above: Performed By: #### Benoit CARTER DRUGRPD ####[facility] [address]wlryiluc[address] [place] [address]Dr. Soniya Chi pH (U) 7.0 [pH] Normal 5-9 [facility] Comment on above: Performed By: #### Benoit CARTER DRUGRPD ####[facility] Rsqtypnpho9[address] [place], [place] [address]Dr. Soniya Chi SPEC GRAVITY 1.005 Normal 1.005-<=1.025 The [facility] Comment on above: Performed By: #### Benoit CARTER DRUGRPD ####[facility] Vljvrpwlch[address] [place], [place] [address]Dr. Soniya Alon UA PROTEIN Negative Normal NEGATIVE/ TRACE [facility] Comment on above: Performed By: #### Benoit CARTER DRUGRPD ####[facility] Ktxmgaqebf4[address] [place], [place] [address]Dr. Soniya Alon UR MICRO IND NOT INDICATED Normal [facility] Comment on above: Performed By: #### Benoit CARTER DRUGRPD ####[facility] Rlqdluvdtt4[address] [place], [place] [address]Dr. Soniya Chi Urobilinogen Qn (U) 0.2 {Casimiro'U}/dL Normal 0.2 - 1.0 [facility] Comment on above: Performed By: #### Benoit CARTER DRUGRPD ####[facility] Kxehqplnsr[address] [place], [place] [address]Dr. Soniya Chi FREE T3on 08-16-2022 FREE T3 2.61 pg/mlL Normal 2.18-3.98 [facility] Comment on above: Performed By: #### F T3 ####[facility] Zkqjchousr[address] [place], [place] [address]Dr. Soniya Chi FREE T4on 08-16-2022 Free T4 [Mass/Vol] 0.82 ng/dL Normal 0.76-1.46 [facility] Comment on above: Performed By: #### F T4 ####[facility] [address]re[address] [place] [address]Dr. Soniya Alon LACTATE/LACTIC ACIDon 2022 Lactate [Moles/Vol] 1.1 mmol/L Normal 0.4-2.0 [facility] Comment on above: Performed By: #### L ACT ####[facility] Bgljphqzfw7[address] [place] [address]Dr. Soniya Chi PH VENOUS BLOODon 08-16-2022 PCO2 VENOUS 58.3 mmHg Critically high 40.0-52.0 [facility] Comment on above: Performed By: #### P HVEN ####[facility] Holssqmugs[address] [place] [address]Dr. Soniya Alon pH VENOUS 7.365 Normal 7.330-7.430 [facility] Comment on above: Performed By: #### P HVEN ####[facility] Fouzmvqkcb7485 [place] [address]Dr. Soniya Chi PROF 14(COMP METB)on 023 Albumin [Mass/Vol] 3.6 g/dL Normal 3.4-5.0 [facility] Comment on above: Performed By: #### T SH, CK, HSTROPN, CMP ####[facility] Xqadkfssne2350 [place] [address]Dr. Soniya Alon Albumin/Globulin [Mass ratio] 1.0 {ratio} Normal [facility] Comment on above: Performed By: #### T SH, CK, HSTROPN, CMP ####[facility] Kqczdrnorv0972 [place] [address]Dr. Soniya Alon ALP [Catalytic activity/Vol] 115 U/L Normal 46-116 [facility] Comment on above: Performed By: #### T SH, CK, HSTROPN, CMP ####[facility] Vkygvatitg2957 [place] [address]Dr. Soniya Chi ALT [Catalytic activity/Vol] 48 U/L Normal 14-59 [facility] Comment on above: Performed By: #### T SH, CK, HSTROPN, CMP ####[facility] Djaewxsisp6898 [place] [address]Dr. Soniya Chi Anion gap [Moles/Vol] 9.7 mmol/L Normal [facility] Comment on above: Performed By: #### T SH, CK, HSTROPN, CMP ####[facility] Giyfypbkbd2539 [place] [address]Dr. Soniya Chi AST [Catalytic activity/Vol] 26 U/L Normal 15-37 [facility] Comment on above: Performed By: #### T SH, CK, HSTROPN, CMP ####[facility] Svabgyoooq3869 [place] [address]Dr. Soniya Chi Bilirubin [Mass/Vol] 0.7 mg/dL Normal 0.2-1.0 [facility] Comment on above: Performed By: #### T SH, CK, HSTROPN, CMP ####[facility] Timetunodo9147[address] [place], [place] [address]Dr. Soniya Chi Calcium [Mass/Vol] 10.1 mg/dL Normal 8.5-10.1 [facility] Comment on above: Performed By: #### T SH, CK, HSTROPN, CMP ####[facility] Mzrbmpcisc[address] [place], [place] [address]Dr. Soniya Chi Chloride [Moles/Vol] 104 mmol/L Normal 98-107 [facility] Comment on above: Performed By: #### T SH, CK, HSTROPN, CMP ####[facility] Akccydykkl8932[address] [place], [place] [address]Dr. Soniya Chi CO2 [Moles/Vol] 34.6 mmol/L Critically high 21.0-32.0 [facility] Comment on above: Performed By: #### T SH, CK, HSTROPN, CMP ####[facility] Kwpiljuxit7747[address] [place], [place] [address]Dr. Soniya Chi Creatinine [Mass/Vol] 1.27 mg/dL Critically high 0.55-1.02 [facility] Comment on above: Performed By: #### T SH, CK, HSTROPN, CMP ####[facility] Eblrbtaphk3335 [place] [address]Dr. Soniya Chi EGFR-AF JAPANESE 51 mL/min/1.73m2 Critically low >=60 [facility] Comment on above: Performed By: #### T SH, CK, HSTROPN, CMP ####[facility] Roovnigmjl6150 [place] [address]Dr. Soniya Chi EGFR-NON AF JAPANESE 42 mL/min/1.73m2 Critically low >=60 [facility] Comment on above: Performed By: #### T SH, CK, HSTROPN, CMP ####[facility] Qiatpegntz2033 [place] [address]Dr. Soniya Chi Globulin (S) [Mass/Vol] 3.6 g/dL Normal [facility] Comment on above: Performed By: #### T SH, CK, HSTROPN, CMP ####[facility] Upcaagguwl9835[address] [place], [place] [address]Dr. Soniya Chi Glucose [Mass/Vol] 100 mg/dL Normal 74-106 [facility] Comment on above: Performed By: #### T SH, CK, HSTROPN, CMP ####[facility] Xxulamwlhe7[address] [place], [place] [address]Dr. Soniya Chi Potassium [Moles/Vol] 4.3 mmol/L Normal 3.5-5.1 [facility] Comment on above: Performed By: #### T SH, CK, HSTROPN, CMP ####[facility] Gdyzbpbriu439[address] [place], [place] [address]Dr. Soniya Chi Protein [Mass/Vol] 7.2 g/dL Normal 6.4-8.2 [facility] Comment on above: Performed By: #### T SH, CK, HSTROPN, CMP ####[facility] Hwwelpwawg8868[address] [place], [place] [address]Dr. Soniya Chi Sodium [Moles/Vol] 144 mmol/L Normal 136-145 [facility] Comment on above: Performed By: #### T SH, CK, HSTROPN, CMP ####[facility] Yocxtkwtmx2859 [place] [address]Dr. Soniya Chi Urea nitrogen [Mass/Vol] 24.0 mg/dL Critically high 7.0-18.0 [facility] Comment on above: Performed By: #### T SH, CK, HSTROPN, CMP ####[facility] Adynmmguyt5710[address] [place], [place] [address]Dr. Soniya Chi Urea nitrogen/Creatinin e [Mass ratio] 18.9 mg/mg Normal [facility] Comment on above: Performed By: #### T SH, CK, HSTROPN, CMP ####[facility] Nykzuyteuf0[address] [place], [place] [address]Dr. Soniya Chi PROTIMEon 08-16-2022 INR Coag (PPP) [Relative time] 0.97 {INR} Normal [facility] Comment on above: Performed By: #### P TT, PT ####[facility] Shzkuhqqfu12[address] [place], [place] [address]Dr. Soniya Chi INR GUIDELINES SEE BELOW Normal [facility] Comment on above: Result Comment: SHARON RED INR: 2.0 - 3.0 CONDITIONS NOT LISTED BELOW 2.5 - 3.5 FOR PROSTHETIC HEART VALVE REPLACEMENT 2.5 - 3.5 RECURRENT THROMBOSIS Performed By: #### P TT, PT ####[facility] Cqhedarsgl8[address] [place], [place] [address]Dr. Soniya Chi PT Coag (PPP) [Time] 10.3 s Normal 9.0-11.6 [facility] Comment on above: Performed By: #### P TT, PT ####[facility] Jdvugcpypy[address] [place], [place] [address]Dr. Soniya Chi PTTon 08-16-2022 aPTT Coag (Bld) [Time] 33.1 s Normal 22.3-36.2 [facility] Comment on above: Performed By: #### P TT, PT ####[facility] Anfxxkywfh[address] [place], [place] [address]Dr. Soniya Chi TROPONIN, HIGH SENSITIVITYon 08-16-2022 HSTROP 9.8 pg/mL Normal 4.0-51.3 [facility] Comment on above: Result Comment: CUT- OFF POINTS HAVE BEEN ESTABLISHED BASED ON THE FOURTH UNIVERSAL DEFINITIONS OF MYOCARDIALINFARCTION. THE UPPER REFERENCE LIMIT (URL) OF TROPONIN, DEFINED THE 99TH PERCENTILE OFcTnI DISTRIBUTION IN A REFERENCE POPULATION, HAS BEEN CONFIRMED THE DECISION THRESHOLDFOR MO DIAGNOSIS. Performed By: #### T SH, CK, HSTROPN, CMP ####[facility] Jxmvgulogr8525 [place] [address]Dr. Soniya Chi TSHon 08-16-2022 TSH 7.844 uIU/mL Critically high 0.358-3.740 [facility] Comment on above: Performed By: #### T SH, CK, HSTROPN, CMP ####[facility] Hgdulfocrk9853 [place] [address]Dr. Soniya Alon XR CHEST 1 Von 08-16-2022 XR CHEST 1 V Normal [facility] UA (CLEAN/CATCH) LITIGATION SUPPORT ANALYST/MICRO I F IND.on 08-15-2022 Bilirubin Ql (U) Negative Normal NEGATIVE [facility] Comment on above: Performed By: #### [facility] ####[facility] Csfnitmjfe6573[address] [place], [place] [address]Dr. Soniya Chi Clarity (U) CLEAR Normal CLEAR [facility] Comment on above: Performed By: #### [facility] ####[facility] Upbvfnmfll3340 [place] [address]Dr. Soniya Chi Color (U) LT. YELLOW Normal YELLOW [facility] Comment on above: Performed By: #### U ACSIND ICRO ####[facility] Pjuovbtyro5492 [place] [address]Dr. Soniya Chi Glucose Ql (U) Negative Normal NEGATIVE [facility] Comment on above: Performed By: #### U ACSIND ICRO ####[facility] Pgznizxvnn249[address] [place], [place] [address]Dr. Soniya Chi Hemoglobin Ql (U) Negative Normal NEGATIVE [facility] Comment on above: Performed By: #### U ACSIND ICRO ####[facility] Vgiwtzkhva9048 [place] [address]Dr. Soniya Chi Ketones Ql (U) Negative Normal NEGATIVE [facility] Comment on above: Performed By: #### U PRASHANTH UMICRO ####[facility] Guwovwhlfk9312 [place] [address]Dr. Soniya Chi LEUKOCYTES MODERATE Abnormal NEGATIVE [facility] Comment on above: Performed By: #### U PRASHANTH UMICRO ####[facility] Yiwoxvkari07[address] [place], [place] [address]Dr. Soniya Chi Nitrite Ql (U) Negative Normal NEGATIVE [facility] Comment on above: Performed By: #### U PRASHANTH UMICRO ####[facility] Unceqxahtv2064[address] [place], [place] [address]Dr. Soniya Chi pH (U) 5.5 [pH] Normal 5-9 [facility] Comment on above: Performed By: #### U PRASHANTH UMICRO ####[facility] Ytneqvhjqs2036[address] [place], [place] [address]Dr. Soniya Chi SPEC GRAVITY <=1.005 Abnormal 1.005-<=1.025 [facility] Comment on above: Performed By: #### U PRASHANTH UMICRO ####[facility] Wqdbwmtbkh9[address] [place], [place] [address]Dr. Soniya Chi UA PROTEIN Negative Normal NEGATIVE/ TRACE [facility] Comment on above: Performed By: #### U PRASHANTH UMICRO ####[facility] Ovtymsnjqr[address] [place], [place] [address]Dr. Soniya Chi UR MICRO IND INDICATED Normal [facility] Comment on above: Performed By: #### U PRASHANTH UMICRO ####[facility] Ehcwomzilb[address] [place], [place] [address]Dr. Soniya Chi Urobilinogen Qn (U) 0.2 {Casimiro'U}/dL Normal 0.2 - 1.0 [facility] Comment on above: Performed By: #### U PRASHANTH UMICRO ####[facility] Knksfijjjt[address] [place], [place] [address]Dr. Soniya Chi URINE MICROSCOPIC ONLYon 03- 16-2023 BACTERIA TRACE Abnormal NONE SEEN [facility] Comment on above: Performed By: #### U PRASHANTH UMICRO ####[facility] Ivxwyhflsv2524 [place] [address]Dr. Soniya Chi Bacteria identified Cx Nom (U) INDICATED Normal [facility] Comment on above: Performed By: #### U ACSLUIS UMICRO ####[facility] Zweujncvrl4691 [place] [address]Dr. Soniya Chi CAST NONE SEEN Normal NONE SEEN [facility] Comment on above: Performed By: #### U ACSLUIS UMICRO ####[facility] Shumosnayz2655 [place] [address]Dr. Soniya Chi Crystals LM Nom (Urine sed) NONE SEEN Normal NONE SEEN [facility] Comment on above: Performed By: #### U ACSLUIS UMICRO ####[facility] Bonngkbyyi0321 [place] [address]Dr. Soniya Chi Epithelial cells LM Ql (Urine sed) RARE Normal NONE SEEN /RARE [facility] Comment on above: Performed By: #### U ACSLUIS UMICRO ####[facility] Cjdgkgcgtp4211 [place] [address]Dr. Soniya Chi MUCOUS NONE SEEN Normal NONE SEEN [facility] Comment on above: Performed By: #### U ACSLUIS UMICRO ####[facility] Lmpixdlprc15[address] [place], [place] [address]Dr. Soniya hCi RBC NONE SEEN Abnormal 0-2 [facility] Comment on above: Performed By: #### U ACSLUIS UMICRO ####[facility] Jpskaiyide9602 [place] [address]Dr. Soniya Chi WBC 5-10 Abnormal NONE SEEN [facility] Comment on above: Performed By: #### U ACSLUIS, UMICRO ####[facility] Lwwwsnzyjz4415 [place] [address]Dr. Soniya Chi CBC AUTO DIFFon 08-13-2022 BASO # 0.0 103/ul Normal 0.0-0.1 [facility] Comment on above: Performed By: #### C BC ####[facility] Scwbgipzgs8279 [place] [id number]. Soniya Chi Basophils/100 WBC (Bld) 0.2 % Normal 0.2-2.0 [facility] Comment on above: Performed By: #### C BC ####[facility] Yglcztkjft7345[address] [place], [place] [address]Dr. Soniya Chi EO # 0.1 103/ul Normal 0.0-0.7 [facility] Comment on above: Performed By: #### C BC ####[facility] Jhhbesknzd2174[address] [place], [place] [address]Dr. Soniya Chi Eosinophils/100 WBC (Bld) 1.0 % Normal 0.9-7.0 [facility] Comment on above: Performed By: #### C BC ####[facility] Wdghdsymqq1723[address] [place], [place] [address]Dr. Soniya Chi Erythrocyte distribution width (RBC) [Ratio] 15.1 % Critically high 11.0-15.0 [facility] Comment on above: Performed By: #### C BC ####[facility] Qjyvhaswkz0299[address] [place], [place] [address]Dr. Soniya Chi Hematocrit (Bld) [Volume fraction] 31.1 % Critically low 36.0-48.0 [facility] Comment on above: Performed By: #### C BC ####[facility] Gkaspxwkgj155[address] [place], [place] [address]Dr. Soniya Chi Hemoglobin (Bld) [Mass/Vol] 10.2 g/dL Critically low 12.0-16.0 [facility] Comment on above: Performed By: #### C BC ####[facility] Vegcyvfixf2428[address] [place], [place] [address]Dr. Soniya Alon IG # 0.01 10e3/ul Normal 0.00-0.03 [facility] Comment on above: Performed By: #### C BC ####[facility] Leiahgidom6769[address] [place], [place] [address]Dr. Gypsyjuan Chi IG % 0.2 % Normal 0.0-0.5 [facility] Comment on above: Performed By: #### C BC ####[facility] Hbrdpguxxk2664 [place] [id number]. Soniya Chi LYMPH # 1.1 103/ul Critically low 1.2-3.8 [facility] Comment on above: Performed By: #### C BC ####[facility] Dcicgingeh5885 [place] [phone]. Soniya Chi Lymphocytes/100 WBC (Bld) 22.5 % Normal 20.5-60.0 [facility] Comment on above: Performed By: #### C BC ####[facility] Mqimwazbge2181 [place] [address]Dr. Soniya Chi MANUAL DIFF REQ NO Normal [facility] Comment on above: Performed By: #### C BC ####[facility] Tsglwxuhms1878 [place] [phone]. Soniya Chi MCH (RBC) [Entitic mass] 30.5 pg Normal 26.7-34.0 [facility] Comment on above: Performed By: #### C BC ####[facility] Ppvhemziin8388 [place] [phone]. Soniya Chi MCHC (RBC) [Mass/Vol] 32.8 g/dL Normal 29.9-35.2 [facility] Comment on above: Performed By: #### C BC ####[facility] Gwejiodywb2156 [place] [phone] Chi MCV (RBC) [Entitic vol] 93.1 fL Normal 81.0-99.0 [facility] Comment on above: Performed By: #### C BC ####[facility] Sgdzvnathl0321 [place] [phone] Chi MONO # 0.3 103/ul Normal 0.3-0.8 [facility] Comment on above: Performed By: #### C BC ####[facility] Dlctvdpaok4904 [place] [phone]. Soniya Chi Monocytes/100 WBC (Bld) 6.6 % Normal 1.7-12.0 [facility] Comment on above: Performed By: #### C BC ####[facility] Wzbihggrav1383 [place] [phone]. Soniya Chi NEUT # 3.5 103/ul Normal 1.4-6.5 [facility] Comment on above: Performed By: #### C BC ####[facility] Ajykostcke3747 [place] [phone]. Soniya Chi Neutrophils/100 WBC (Bld) 69.5 % Normal 43.0-75.0 [facility] Comment on above: Performed By: #### C BC ####[facility] Dwdtsdypwb6816 [place] [phone]. Soniya Chi Platelet mean volume (Bld) [Entitic vol] 10.3 fL Normal 9.5-13.5 [facility] Comment on above: Performed By: #### C BC ####[facility] Sqdhhfftyb7921 [place] [phone]. Soniya Chi PLT 116 103/ul Critically low 150-450 [facility] Comment on above: Performed By: #### C BC ####[facility] Bkgmktkgnr0883 [place] [phone]. Soniya Chi RBC 3.34 106/ul Critically low 4.20-5.40 [facility] Comment on above: Performed By: #### C BC ####[facility] Otbzifxzye7144 [place] [phone]. Soniya Chi WBC 5.0 103/ul Normal 4.0-11.0 [facility] Comment on above: Performed By: #### C BC ####[facility] Edpyfsyois4034 [place] [phone]. Soniya Chi LIVER PROFILEon 08-13-2022 Albumin [Mass/Vol] 3.6 g/dL Normal 3.4-5.0 [facility] Comment on above: Performed By: #### L LELAND, BMP ####[facility] Krmwkwvtvd8658 [place] [phone]. Soniya Chi Albumin/Globulin [Mass ratio] 1.0 {ratio} Normal [facility] Comment on above: Performed By: #### L IVER, BMP ####[facility] Steqvaspwn5265 [place] [address]Dr. Soniya Chi ALP [Catalytic activity/Vol] 111 U/L Normal 46-116 [facility] Comment on above: Performed By: #### L IVER, BMP ####[facility] Mnpbpxalhq65[address] [place], [place] [address]Dr. Soniya Chi ALT [Catalytic activity/Vol] 46 U/L Normal 14-59 [facility] Comment on above: Performed By: #### L IVER, BMP ####[facility] Sqhinwkfgz4088[address] [place], [place] [address]Dr. Soniya Chi AST [Catalytic activity/Vol] 17 U/L Normal 15-37 [facility] Comment on above: Performed By: #### L IVER, BMP ####[facility] Kalbhtqyta750[address] [place], [place] [address]Dr. Soniya Chi BILI, CONJUGATED 0.1 mg/dL Normal 0.0-0.2 [facility] Comment on above: Performed By: #### L IVER, BMP ####[facility] Lafqiwqgcp4710[address] [place], [place] [address]Dr. Soniya Chi Bilirubin [Mass/Vol] 0.7 mg/dL Normal 0.2-1.0 [facility] Comment on above: Performed By: #### L IVER, BMP ####[facility] Lrtbvskcar184[address] [place], [place] [address]Dr. Soniya Chi Globulin (S) [Mass/Vol] 3.5 g/dL Normal [facility] Comment on above: Performed By: #### L IVER, BMP ####[facility] Boedptnfzj01[address] [place], [place] [address]Dr. Soniya Chi Protein [Mass/Vol] 7.1 g/dL Normal 6.4-8.2 [facility] Comment on above: Performed By: #### L IVER, BMP ####[facility] Vfmpkuayob70[address] [place], [place] [address]Dr. Soniya Chi PROF CHEM 8 (BAS METB)on Anion gap [Moles/Vol] 6.8 mmol/L Normal [facility] Comment on above: Performed By: #### Yue HA, BMP ####[facility] Kfioqysgif678[address] [place], [place] [address]Dr. Soniya Chi Calcium [Mass/Vol] 10.1 mg/dL Normal 8.5-10.1 [facility] Comment on above: Performed By: #### Yue HA, BMP ####[facility] Uecbpmxzdd4[address] [place], [place] [address]Dr. Soniya Chi Chloride [Moles/Vol] 105 mmol/L Normal 98-107 [facility] Comment on above: Performed By: #### Yue HA, BMP ####[facility] Zlcpqvgaxc9[address] [place], [place] [address]Dr. Soniya Chi CO2 [Moles/Vol] 32.4 mmol/L Critically high 21.0-32.0 [facility] Comment on above: Performed By: #### Yue HA, BMP ####[facility] Zelinzbvgv20[address] [place], [place] [address]Dr. Soniya Chi Creatinine [Mass/Vol] 1.25 mg/dL Critically high 0.55-1.02 [facility] Comment on above: Performed By: #### Yue HA, BMP ####[facility] Wfddhgmvtd[address] [place], [place] [address]Dr. Soniya Chi EGFR-AF J[place]ESE 52 mL/min/1.73m2 Critically low >=60 [facility] Comment on above: Performed By: #### Yue HA, BMP ####[facility] Lximtsmg[address] [place], [place] [address]Dr. Soniya Chi EGFR-NON AF JAPANESE 43 mL/min/1.73m2 Critically low >=60 [facility] Comment on above: Performed By: #### Yue HA, BMP ####[facility] [address] [place], [place] [address]Dr. Soniya Chi Glucose [Mass/Vol] 86 mg/dL Normal 74-106 [facility] Comment on above: Performed By: #### L IVER, BMP ####[facility] [address] [place] [id number]. Soniya Chi Potassium [Moles/Vol] 3.9 mmol/L Normal 3.5-5.1 [facility] Comment on above: Performed By: #### L IVER, BMP ####[facility] [address] [place] [id number]. Soniya Chi Sodium [Moles/Vol] 142 mmol/L Normal 136-145 [facility] Comment on above: Performed By: #### L IVER, BMP ####[facility] [address] [place] [id number]. Soniya Chi Urea nitrogen [Mass/Vol] 23.0 mg/dL Critically high 7.0-18.0 [facility] Comment on above: Performed By: #### L IVER, BMP ####[facility] [address] [place] [address]Dr. Soniya Chi Urea nitrogen/Creatinin e [Mass ratio] 18.4 mg/mg Normal [facility] Comment on above: Performed By: #### L IVER, BMP ####[facility] [address] [place] [address]Dr. Soniya Chi Creatinine and Glomerular fi ltration rate.predicted panel (S/P/Bld)Ordered By: Marlene Guerra on 06-17-2022 Creatinine [Mass/Vol] 1.30 mg/dL 0.44-1.03 [facility] Estimated glomerular filtrat ion rate (GFR) non- AmericanOrdered By: Marlene Guerra on 06-17-2022 GFR/1.73 sq M.predicted among non-blacks MDRD (S/P/Bld) [Vol rate/Area] 41 mL/Min [facility] No Panel InformationOrdered By: Marlene Guerra on 06-17-2022 Estimated GFR () 49 mL/Min [facility] Comment on above: GFR estimated refere nce range: According to KDOQI guidelines, <60 ml/min/1.73m2 is sufficient to diagnose a patient with chronic kidney disease. Pharmacy Creatinine Clearance (Chem 39.93 [facility] Serum or plasma anion gap de terminationOrdered By: Marlene Guerra on 06-17-2022 Anion gap [Moles/Vol] 12.2 mmol/L 6.0-15.0 [facility] Serum or plasma calcium negin urement (mass/volume)Ordered By: Marlene Guerra on 06-17-2022 Calcium [Mass/Vol] 9.3 mg/dL 8.2-10.2 [facility] Serum or plasma chloride russel surement (moles/volume)Ordered By: Marlene Guerra on 06-17-2022 Chloride [Moles/Vol] 100 mmol/L 95-114 [facility] Serum or plasma glucose negin urement (mass/volume)Ordered By: Marlene Guerra on 06-17-2022 Glucose [Mass/Vol] 101 mg/dL 70-100 [facility] Comment on above: ADA recommended refe rence rangeRandom Glucose Reference Range is dependent on time and content of last meal. Glucose of more than 200 mg/dL in a nonstressed, ambulatory subject supports the diagnosis of Diabetes Mellitus. Serum or plasma potassium me asurement (moles/volume)Ordered By: Marlene Guerra on 06-17-2022 Potassium [Moles/Vol] 3.8 mmol/L 3.5-5.1 [facility] Serum or plasma sodium measu rement (moles/volume)Ordered By: Marlene Guerra on 06-17-2022 Sodium [Moles/Vol] 135 mmol/L 136-146 [facility] Serum or plasma total carbon dioxide measurement (moles/volume)Ordered By: Marlene Guerra on 06-17-2022 CO2 [Moles/Vol] 26.6 mmol/L 22.0-30.0 [facility] Serum or plasma urea nitroge n measurement (mass/volume)Ordered By: Marlnee Guerra on 06-17-2022 Urea nitrogen [Mass/Vol] 26 mg/dL 9-23 [facility] Basophils Auto (Bld) [#/Vol] Ordered By: Marlene Guerra on 06-15-2022 Basophils (Bld) [#/Vol] 0.0 10*3/uL 0.0-0.2 [facility] Basophils/100 WBC Auto (Bld) Ordered By: Marlene Guerra on 06-15-2022 Basophils/100 WBC (Bld) 0.5 % . [facility] Eosinophils Auto (Bld) [#/Vo l]Ordered By: Marlene Guerra on 06-15-2022 Eosinophils (Bld) [#/Vol] 0.0 10*3/uL 0.0-0.45 [facility] Eosinophils/100 WBC Auto (Bl d)Ordered By: Marlene Guerra on 06-15-2022 Eosinophils/100 WBC (Bld) 0.3 % . [facility] Erythrocyte distribution wid th Auto (RBC) [Ratio]Ordered By: Marlene Guerra on 06-15-2022 Erythrocyte distribution width (RBC) [Ratio] 15.6 % 11.9-15.3 [facility] Hematocrit Auto (Bld) [Volum e fraction]Ordered By: Marlene Guerra on 06-15-2022 Hematocrit (Bld) [Volume fraction] 34.4 % 34.0-46.4 [facility] Hemoglobin [Mass/volume] in BloodOrdered By: Marlene Guerra on 06-15-2022 Hemoglobin (Bld) [Mass/Vol] 11.2 g/dL 11.8-15.4 [facility] Influenza virus A and B anti gen detection by immunoassayOrdered By: Kassandra Vasquez on 06-15-2022 FLUAV+FLUBV Ag IA Ql (Unsp spec) [facility] Leukocytes [#/volume] correc scott for nucleated erythrocytes in Blood by Automated counOrdered By: Marlene Guerra on 06-15-2022 WBC corrected for nucl RBC Auto (Bld) [#/Vol] 8.2 10*3/uL 3.8-11.6 [facility] Lymphocytes Auto (Bld) [#/Vo l]Ordered By: Marlene Guerra on 06-15-2022 Lymphocytes (Bld) [#/Vol] 0.9 10*3/uL 1.00-4.8 [facility] Lymphocytes/100 WBC Auto (Bl d)Ordered By: Marlene Guerra on 06-15-2022 Lymphocytes/100 WBC (Bld) 10.9 % . [facility] MCH Auto (RBC) [Entitic mass ]Ordered By: Marlene Guerra on 06-15-2022 MCH (RBC) [Entitic mass] 29.6 pg 24.7-34.3 [facility] MCHC Auto (RBC) [Mass/Vol]Or dered By: Marlene Guerra on 06-15-2022 MCHC (RBC) [Mass/Vol] 32.7 g/dL 32.0-35.0 [facility] MCV Auto (RBC) [Entitic vol] Ordered By: Marlene Guerra on 06-15-2022 MCV (RBC) [Entitic vol] 90.5 fL 80-100 [facility] Monocytes Auto (Bld) [#/Vol] Ordered By: Marlene Guerra on 06-15-2022 Monocytes (Bld) [#/Vol] 0.8 10*3/uL 0.0-0.8 [facility] Monocytes/100 WBC Auto (Bld) Ordered By: Marlene Guerra on 06-15-2022 Monocytes/100 WBC (Bld) 9.8 % . [facility] Neutrophils Auto (Bld) [#/Vo l]Ordered By: Marlene Guerra on 06-15-2022 Neutrophils (Bld) [#/Vol] 6.4 10*3/uL 1.8-7.7 [facility] Neutrophils/100 WBC Auto (Bl d)Ordered By: Marlene Guerra on 06-15-2022 Neutrophils/100 WBC (Bld) 78.5 % . [facility] Nucleated erythrocytes [Pres ence] in Blood by Automated countOrdered By: Marlene Guerra on 06-15-2022 Nucleated RBC Auto Ql (Bld) 0.1 /100{WBC} 0-0.5 [facility] Platelet mean volume Auto (B ld) [Entitic vol]Ordered By: Marlene Guerra on 06-15-2022 Platelet mean volume (Bld) [Entitic vol] 7.9 fL 6.3-10.7 [facility] Platelets Auto (Bld) [#/Vol] Ordered By: Marlene Guerra on 06-15-2022 Platelets (Bld) [#/Vol] 209 10*3/uL 150-450 [facility] RBC Auto (Bld) [#/Vol]Ordere d By: Marlene Guerra on 06-15-2022 RBC (Bld) [#/Vol] 3.80 10*6/uL 3.60-5.00 [facility] Urine culture routineOrdered By: Marlene Guerra on 06-15-2022 Bacteria identified Cx Nom (U) 2 Days [facility] WBC Auto (Bld) [#/Vol]Ordere d By: Marlene Guerra on 06-15-2022 WBC (Bld) [#/Vol] 8.2 10*3/uL 3.8-11.6 [facility] Albumin [Mass/volume] in Ser um or PlasmaOrdered By: Marty Mclean on 06-14-2022 Albumin [Mass/Vol] 4.0 g/dL 3.2-5.5 [facility] Automated erythrocytes count in urine sediment (number/area)Ordered By: Marty Mclean on 06-14-2022 RBC Auto (Urine sed) [#/Area] 0-1 [HPF] 0-4 [facility] Automated leukocytes count i n urine sediment (number/area)Ordered By: Marty Mclean on 06-14-2022 WBC Auto (Urine sed) [#/Area] None seen [HPF] 0-4 [facility] Bilirubin Test strip Ql (U)O rdered By: Marty Mclean on 06-14-2022 Bilirubin Ql (U) Negative Negative [facility] COVID-19 SOFIAOrdered By: Ab aziza Mclean on 06-14-2022 SARS-CoV+SARS-CoV- 2 (COVID-19) Ag IA.rapid Ql (Resp) Negative Negative [facility] Comment on above: This is a duplicate Stefania SARS Antigen (CHU) result to be used for statistical tracking purpose only. Color Auto (U)Ordered By: Ab aziza Mclean on 06-14-2022 Color (U) Yellow Yellow [facility] Globulin Calc (S) [Mass/Vol] Ordered By: Marty Mclean on 06-14-2022 Globulin (S) [Mass/Vol] 3.5 g/dL [facility] Ketones Auto test strip (U) [Mass/Vol]Ordered By: Marty Mclean on 06-14-2022 Ketones (U) [Mass/Vol] Negative Negative [facility] Laboratory - UrinalysisOrder ed By: Marty Mclean on 06-14-2022 Hyaline casts LM Ql (Urine sed) None seen [LPF] 0-8 [facility] Monocyte %Ordered By: Marlene Guerra on 06-14-2022 Monocyte % 10 umol/L 11-35 [facility] Nitrite Test strip Ql (U)Ord ered By: Marty Mclean on 06-14-2022 Nitrite Ql (U) Negative Negative [facility] Protein Auto test strip (U) [Mass/Vol]Ordered By: Marty Mclean on 06-14-2022 Protein (U) [Mass/Vol] Negative Negative [facility] Protein [Mass/volume] in Ser um or PlasmaOrdered By: Marty Mclean on 06-14-2022 Protein [Mass/Vol] 7.5 g/dL 6.1-7.9 [facility] Serum or plasma alanine reyes otransferase measurement without P-5'-P (enzymatic activiOrdered By: Marty Mclean on 06-14-2022 ALT No additional P-5'-P [Catalytic activity/Vol] 25 U/L 10-60 [facility] Serum or plasma albumin/glob ulin mass ratioOrdered By: Marty Mclean on 06-14-2022 Albumin/Globulin [Mass ratio] 1.1 {ratio} [facility] Serum or plasma alkaline derek sphatase measurement (enzymatic activity/volume)Ordered By: Marty Mclean on 06-14-2022 ALP [Catalytic activity/Vol] 91 U/L 32-92 [facility] Serum or plasma aspartate am inotransferase measurement (enzymatic activity/volume)Ordered By: Marty Mclean on 06-14-2022 AST [Catalytic activity/Vol] 17 U/L 10-42 [facility] Serum or plasma total biliru bin measurement (mass/volume)Ordered By: Marty Mclean on 06-14-2022 Bilirubin [Mass/Vol] 0.9 mg/dL 0.3-1.2 [facility] Specific gravity Auto test s trip (U) [Rel density]Ordered By: Marty Mclean on 06-14-2022 Specific gravity (U) [Rel density] 1.018 1.001-1.030 [facility] Squamous epithelial cells de tection in urine sediment by light microscopyOrdered By: Marty Mclean on 06-14-2022 Epithelial cells.squamous LM Ql (Urine sed) None seen [HPF] 0-2 [facility] Urine bacteria detection by automated methodOrdered By: Marty Mclean on 06-14-2022 Bacteria Auto Ql (U) None seen None Seen [facility] Urine clarity by refractomet ry automatedOrdered By: Marty Mclean on 06-14-2022 Clarity Refractometry automated (U) Clear Clear [facility] Urine glucose measurement by automated test strip (mass/volume)Ordered By: Marty Mclean on 06-14-2022 Glucose Auto test strip (U) [Mass/Vol] Normal mg/dL Normal [facility] Urine hemoglobin detection b y automated test stripOrdered By: Marty Mclean on 06-14-2022 Hemoglobin Auto test strip Ql (U) Negative Negative [facility] Urine leukocyte esterase det ection by automated test stripOrdered By: Marty Mclean on 06-14-2022 Leukocyte esterase Auto test strip Ql (U) Negative Negative [facility] Urobilinogen Auto test strip (U) [Mass/Vol]Ordered By: Marty Mclean on 06-14-2022 Urobilinogen (U) [Mass/Vol] Normal mg/dL Normal [facility] pH Auto test strip (U)Ordere d By: Marty Mclean on 06-14-2022 pH (U) 6.0 [pH] 5.0-9.0 [facility] Triiodothyronine (T3) Free [ Mass/volume] in Serum or PlasmaOrdered By: Anca Wheeler on 06-02-2022 Free T3 [Mass/Vol] 2.78 pg/mL 2.50-3.[address] [facility] [address] biopsyOrdered By: Anca walter on 06-01-2022 Transferrin [Mass/Vol] 207 mg/dL 180-380 [facility] Ferritin [Mass/volume] in Se rum or PlasmaOrdered By: Anca Wheeler on 06-01-2022 Ferritin [Mass/Vol] 212.1 ng/mL 11-306.8 [facility] Folate [Mass/volume] in Seru m or PlasmaOrdered By: Anca Wheeler on 06-01-2022 Folate [Mass/Vol] 5.6 ng/mL >5.9 [facility] Comment on above: Folate reference ran ge: >5.9 ng/mlThe WHO technical consultation on folate and vitamin [id number] has determined that folate concentrations lessthan 4 ng/ml are considered deficient. Iron [Mass/volume] in Serum or PlasmaOrdered By: Anca Wheeler on 06-01-2022 Iron [Mass/Vol] 51 ug/dL 40-150 [facility] Iron binding capacity [Mass/ volume] in Serum or PlasmaOrdered By: Anca Wheeler on 06-01-2022 Iron binding capacity [Mass/Vol] 290 ug/dL 255-450 [facility] Iron saturation [Mass Fracti on] in Serum or PlasmaOrdered By: Anca Wheeler on 06-01-2022 Iron saturation [Mass fraction] 17.6 % 20-50 [facility] Laboratory - Chemistry and C hemistry - challengeOrdered By: Anca Wheeler on 06-01-2022 Cobalamin (Vitamin B12) [Mass/Vol] 452 pg/mL 180-914 [facility] TSH DL <= 0.005 mIU/L QnOrde red By: Anca Wheeler on 06-01-2022 TSH Qn 2.65 m[IU]/L 0.45-5.33 [facility] Casts typing in urine sedime nt by light microscopyOrdered By: Reggie Quintana on 05-31-2022 Casts LM Nom (Urine sed) None seen [LPF] None Seen [facility] Cholesterol [Mass/volume] in Serum or PlasmaOrdered By: Reggie Quintana on 05-31-2022 Cholesterol [Mass/Vol] 139 mg/dL 140-200 [facility] Comment on above: Chol less than 200 m g/dl low riskChol 201-239 mg/dl borderline riskChol 240 mg/dl and greater high risk Cholesterol in LDL Calc [Mas s/Vol]Ordered By: Reggie Quintana on 05-31-2022 Cholesterol in LDL [Mass/Vol] 50 mg/dL 0-100 [facility] Comment on above: LDL ATP III CLASSIFI CATIONLDL less than 100 mg/dL OptimalLDL 100-129 mg/dL Near or above optimalLDL 130-159 mg/dL Borderline highLDL 160-189 mg/dL HighLDL greater than 189 mg/dL Very high Cholesterol in VLDL Calc [Ma ss/Vol]Ordered By: Reggie Quintana on 05-31-2022 Cholesterol in VLDL [Mass/Vol] 16 mg/dL [facility] Fine granular cast count in urine sediment by microscopy (number/low power field )Ordered By: Reggie Quintana on 05-31-2022 Fine Granular Casts LM.LPF (Urine sed) [#/Area] 1-2 [LPF] 0-1 [facility] Mucus LM Ql (Urine sed)Order ed By: Reggie Quintana on 05-31-2022 Mucus Ql (Urine sed) 4+ [LPF] [facility] No Panel InformationOrdered By: Reggie Quintana on 05-31-2022 25-Hydroxy Vitamin D Total 13.1 ng/mL 30-100 [facility] Comment on above: VITAMIN D STATUS 25( OH)VITAMIN D RANGE (ng/mL) Deficient <20 Insufficient 20 to <30Sufficient 30 to 100Reference: Ruiz CAMILO,Edgar OLIVAS, Brenda FARMER, et al. Evaluation,treatment, and prevention of vitamin D deficiency; an Endocrine Society clinical practice guideline. JCEM. 2010; 96(7):1911-30. Serum or plasma high density lipoprotein (HDL) cholesterol measurementOrdered By: Reggie Quintana on 05-31-2022 Cholesterol in HDL [Mass/Vol] 73 mg/dL 35-85 [facility] Comment on above: HDL CHOL ATP-III CLA SSIFICATION Cardiovascular RiskHDL > or equal to 60 mg/dL LOWHDL < 40 mg/dL HIGH Serum or plasma total choles terol/high density lipoprotein (HDL) cholesterol mass ratOrdered By: Reggie Quintana on 05-31-2022 Cholesterol.total/ Cholesterol in HDL [Mass ratio] 1.9 {ratio} <5.0 [facility] Triglyceride [Mass/volume] i n Serum or PlasmaOrdered By: Reggie Quintana on 05-31-2022 Triglyceride [Mass/Vol] 81 mg/dL 35-149 [facility] Comment on above: TRIG ATP III CLASSIF [...] crystals LM.HPF (Urine sed) [#/Area] 3+ [HPF] [facility] CBC AUTO DIFFon 05-30-2022 BASO # 0.0 103/ul Normal 0.0-0.1 [facility] Comment on above: Performed By: #### C BC ####[facility] [address] [place] [address]Dr. Soniya Chi Basophils/100 WBC (Bld) 0.2 % Normal 0.2-2.0 [facility] Comment on above: Performed By: #### C BC ####[facility] [address] [place] [id number] Chi EO # 0.1 103/ul Normal 0.0-0.7 [facility] Comment on above: Performed By: #### C BC ####[facility] [address] [place] [id number]. Soniya Chi Eosinophils/100 WBC (Bld) 1.0 % Normal 0.9-7.0 [facility] Comment on above: Performed By: #### C BC ####[facility] [address] [place], [place] [address]Dr. Soniya Chi Erythrocyte distribution width (RBC) [Ratio] 14.4 % Normal 11.0-15.0 [facility] Comment on above: Performed By: #### C BC ####[facility] [address] [place], [place] [address]Dr. Soniya Chi Hematocrit (Bld) [Volume fraction] 30.0 % Critically low 36.0-48.0 [facility] Comment on above: Performed By: #### C BC ####[facility] Ar[address] [place], [place] [address]Dr. Soniya Chi Hemoglobin (Bld) [Mass/Vol] 9.7 g/dL Critically low 12.0-16.0 [facility] Comment on above: Performed By: #### C BC ####[facility] [address] [place], [place] [address]Dr. Soniya Chi IG # 0.04 10e3/ul Critically high 0.00-0.03 [facility] Comment on above: Performed By: #### C BC ####[facility] [address] [place], [place] [address]DrKarolina Chi IG % 0.5 % Normal 0.0-0.5 [facility] Comment on above: Performed By: #### C BC ####[facility] [address] [place], [place] [address]DrKarolina Chi LYMPH # 0.8 103/ul Critically low 1.2-3.8 [facility] Comment on above: Performed By: #### C BC ####[facility] [address] [place], [place] [address]Dr. Soniya Chi Lymphocytes/100 WBC (Bld) 10.0 % Critically low 20.5-60.0 [facility] Comment on above: Performed By: #### C BC ####[facility] [address] [place], [place] [address]Dr. Soniya Chi MANUAL DIFF REQ NO Normal [facility] Comment on above: Performed By: #### C BC ####[facility] [address] [place] [address]Dr. Soniya Chi MCH (RBC) [Entitic mass] 29.8 pg Normal 26.7-34.0 [facility] Comment on above: Performed By: #### C BC ####[facility] [address] [place] [address]Dr. Soniya Chi MCHC (RBC) [Mass/Vol] 32.3 g/dL Normal 29.9-35.2 [facility] Comment on above: Performed By: #### C BC ####[facility] [address] [place], [place] [address]Dr. Soniya Chi MCV (RBC) [Entitic vol] 92.3 fL Normal 81.0-99.0 [facility] Comment on above: Performed By: #### C BC ####[facility] [address] [place], [place] [address]Dr. Soniya Chi MONO # 0.8 103/ul Normal 0.3-0.8 [facility] Comment on above: Performed By: #### C BC ####[facility] [address] [place], [place] [address]Dr. Soniya Chi Monocytes/100 WBC (Bld) 9.4 % Normal 1.7-12.0 [facility] Comment on above: Performed By: #### C BC ####[facility] [address] [place], [place] [address]Dr. Soniya Chi NEUT # 6.5 103/ul Normal 1.4-6.5 [facility] Comment on above: Performed By: #### C BC ####[facility] [address] [place], [place] [address]Dr. Soniya Chi Neutrophils/100 WBC (Bld) 78.9 % Critically high 43.0-75.0 [facility] Comment on above: Performed By: #### C BC ####[facility] [address] [place], [place] [address]Dr. Soniya Chi Platelet mean volume (Bld) [Entitic vol] 10.2 fL Normal 9.5-13.5 [facility] Comment on above: Performed By: #### C BC ####[facility] [address] [place] [address]Dr. Soniya Chi PLT 103 103/ul Critically low 150-450 [facility] Comment on above: Performed By: #### C BC ####[facility] [address] [place] [address]Dr. Soniya Chi RBC 3.25 106/ul Critically low 4.20-5.40 [facility] Comment on above: Performed By: #### C BC ####[facility] [address] [place] [address]Dr. Soniya Chi WBC 8.2 103/ul Normal 4.0-11.0 [facility] Comment on above: Performed By: #### C BC ####[facility] [address] [place] [address]DrKarolina Chi PROF 14(COMP METB)on 022 Albumin [Mass/Vol] 2.8 g/dL Critically low 3.4-5.0 [facility] Comment on above: Performed By: #### C MP ####[facility] [address] [place] [address]Dr. Soniya Chi Albumin/Globulin [Mass ratio] 0.8 {ratio} Normal [facility] Comment on above: Performed By: #### C MP ####[facility] [address] [place] [address]Dr. Soniya Chi ALP [Catalytic activity/Vol] 78 U/L Normal 46-116 [facility] Comment on above: Performed By: #### C MP ####[facility] [address] [place], [place] [address]Dr. Soniya Chi ALT [Catalytic activity/Vol] 26 U/L Normal 14-59 [facility] Comment on above: Performed By: #### C MP ####[facility] [address] [place], [place] [address]Dr. Soniya Chi Anion gap [Moles/Vol] 11.3 mmol/L Normal [facility] Comment on above: Performed By: #### C MP ####[facility] [address]va[address] [place] [address]Dr. Soniya Chi AST [Catalytic activity/Vol] 35 U/L Normal 15-37 [facility] Comment on above: Performed By: #### C MP ####[facility] [address] [place] [address]Dr. Soniya Alon Bilirubin [Mass/Vol] 0.9 mg/dL Normal 0.2-1.0 [facility] Comment on above: Performed By: #### C MP ####[facility] [address]cmsg[address] [place], [place] [address]Dr. Soniya Chi Calcium [Mass/Vol] 9.2 mg/dL Normal 8.5-10.1 [facility] Comment on above: Performed By: #### C MP ####[facility] [address]zb[address] [place], [place] [address]Dr. Soniya Chi Chloride [Moles/Vol] 113 mmol/L Critically high 98-107 [facility] Comment on above: Performed By: #### C MP ####[facility] Dob[address] [place], [place] [address]Dr. Soniya Alon CO2 [Moles/Vol] 26.5 mmol/L Normal 21.0-32.0 [facility] Comment on above: Performed By: #### C MP ####[facility] [address] [place], [place] [address]Dr. Soniya Chi Creatinine [Mass/Vol] 1.21 mg/dL Critically high 0.55-1.02 [facility] Comment on above: Performed By: #### C MP ####[facility] [address] [place], [place] [address]Dr. Soniya Chi EGFR-AF JAPANESE 54 mL/min/1.73m2 Critically low >=60 [facility] Comment on above: Performed By: #### C MP ####[facility] [address] [place], [place] [address]Dr. Soniya Chi EGFR-NON AF JAPANESE 44 mL/min/1.73m2 Critically low >=60 [facility] Comment on above: Performed By: #### C MP ####[facility] [address] [place] [address]Dr. Soniya Chi Globulin (S) [Mass/Vol] 3.6 g/dL Normal [facility] Comment on above: Performed By: #### C MP ####[facility] [address]tb[address] [place] [address]Dr. Soniya Chi Glucose [Mass/Vol] 101 mg/dL Normal 74-106 [facility] Comment on above: Performed By: #### C MP ####[facility] [address]wr[address]wrv[address] [place] [address]Dr. Soniya Chi Potassium [Moles/Vol] 3.8 mmol/L Normal 3.5-5.1 [facility] Comment on above: Performed By: #### C MP ####[facility] [address] [place], [place] [address]Dr. Soniya Chi Protein [Mass/Vol] 6.4 g/dL Normal 6.4-8.2 [facility] Comment on above: Performed By: #### C MP ####[facility] Yzedfiskfu25[address] [place], [place] [address]Dr. Soniya Chi Sodium [Moles/Vol] 147 mmol/L Critically high 136-145 [facility] Comment on above: Performed By: #### C MP ####[facility] Gprlmiklbq676[address] [place], [place] [address]Dr. Soniya Chi Urea nitrogen [Mass/Vol] 18.0 mg/dL Normal 7.0-18.0 [facility] Comment on above: Performed By: #### C MP ####[facility] Tdqxznmchr214[address] [place], [place] [address]Dr. Soniya Chi Urea nitrogen/Creatinin e [Mass ratio] 14.9 mg/mg Normal [facility] Comment on above: Performed By: #### C MP ####[facility] Sosfkvnqxy5943[address] [place], [place] [address]Dr. Soniya Chi PROF CHEM 8 (BAS METB)on 12- 29-2022 Anion gap [Moles/Vol] 9.9 mmol/L Normal [facility] Comment on above: Performed By: #### B MP ####[facility] Tayybfbxix8405[address] [place], [place] [address]Dr. Gypsyjuan Alon Calcium [Mass/Vol] 9.0 mg/dL Normal 8.5-10.1 [facility] Comment on above: Performed By: #### B MP ####[facility] Wudprheife2418[address] [place], [place] [address]Dr. Soniya Chi Chloride [Moles/Vol] 114 mmol/L Critically high 98-107 [facility] Comment on above: Performed By: #### B MP ####[facility] Hjytuzqsqa2590[address] [place], [place] [address]Dr. Soniya Chi CO2 [Moles/Vol] 28.0 mmol/L Normal 21.0-32.0 [facility] Comment on above: Performed By: #### B MP ####[facility] Bhygykisty9678[address] [place], [place] [address]Dr. Soniya Chi Creatinine [Mass/Vol] 1.37 mg/dL Critically high 0.55-1.02 [facility] Comment on above: Performed By: #### B MP ####[facility] Ynrqhiwocp1723[address] [place], [place] [address]Dr. Soniya Chi EGFR-AF JAPANESE 47 mL/min/1.73m2 Critically low >=60 The [facility] Comment on above: Performed By: #### B MP ####[facility] Vlggecberw677[address] [place], [place] [address]Dr. Soniya Chi EGFR-NON AF JAPANESE 38 mL/min/1.73m2 Critically low >=60 The [facility] Comment on above: Performed By: #### B MP ####[facility] Wgflrnfuqh2201[address] [place], [place] [address]Dr. Soniya Chi Glucose [Mass/Vol] 104 mg/dL Normal 74-106 [facility] Comment on above: Performed By: #### B MP ####[facility] Pawecijizp8165[address] [place], [place] [address]Dr. Soniya Chi Potassium [Moles/Vol] 2.9 mmol/L Critically low 3.5-5.1 [facility] Comment on above: Performed By: #### B MP ####[facility] Xcnlakkxdz9084[address] [place], [place] [address]Dr. Soniya Chi Sodium [Moles/Vol] 147 mmol/L Critically high 136-[address] [facility] Comment on above: Performed By: #### B MP ####[facility] Egeraetldl587[address] [place], [place] [address]Dr. Soniya Alon Urea nitrogen [Mass/Vol] 18.0 mg/dL Normal 7.0-18.0 The [facility] Comment on above: Performed By: #### B MP ####[facility] Mtzuwumucs1848[address] [place], [place] [address]Dr. Gypsyjuan Chi Urea nitrogen/Creatinin e [Mass ratio] 13.1 mg/mg Normal [facility] Comment on above: Performed By: #### B MP ####[facility] Uvhfumvgwn7076[address] [place], [place] [address]Dr. Soniya Alon CBC AUTO DIFFon 05-29-2022 BASO # 0.0 103/ul Normal 0.0-0.1 [facility] Comment on above: Performed By: #### C BC ####[facility] Ndxazcvdgo7938[address] [place], [place] [address]Dr. Gypsyjuan Chi Basophils/100 WBC (Bld) 0.2 % Normal 0.2-2.0 The [facility] Comment on above: Performed By: #### C BC ####[facility] Owalanrfms1207[address] [place], [place] [address]Dr. Soniya Alon EO # 0.0 103/ul Normal 0.0-0.7 The [facility] Comment on above: Performed By: #### C BC ####[facility] Yegstaqpfa3673[address] [place], [place] [address]Dr. Gypsyjuan Chi Eosinophils/100 WBC (Bld) 0.5 % Critically low 0.9-7.0 The [facility] Comment on above: Performed By: #### C BC ####[facility] Qgxogtfviq6332 [place] [address]Dr. Soniya Chi Erythrocyte distribution width (RBC) [Ratio] 14.3 % Normal 11.0-15.0 The [facility] Comment on above: Performed By: #### C BC ####[facility] Vkhtwfduaa5823 [place] [address]Dr. Soniya Chi Hematocrit (Bld) [Volume fraction] 30.1 % Critically low 36.0-48.0 The [facility] Comment on above: Performed By: #### C BC ####[facility] Rjynfkpsrm1728 [place] [address]Dr. Soniya Chi Hemoglobin (Bld) [Mass/Vol] 9.7 g/dL Critically low 12.0-16.0 [facility] Comment on above: Performed By: #### C BC ####[facility] Jvmdyjwviw4654[address] [place], [place] [address]Dr. Soniya Chi IG # 0.02 10e3/ul Normal 0.00-0.03 The [facility] Comment on above: Performed By: #### C BC ####[facility] Vebvylfohy9566[address] [place], [place] [address]Dr. Soniya Chi IG % 0.3 % Normal 0.0-0.5 [facility] Comment on above: Performed By: #### C BC ####[facility] Tfrtnoqfti6789[address] [place], [place] [address]Dr. Soniya Chi LYMPH # 0.9 103/ul Critically low 1.2-3.8 [facility] Comment on above: Performed By: #### C BC ####[facility] Mjgihbnpwp5310[address] [place], [place] [address]Dr. Soniya Chi Lymphocytes/100 WBC (Bld) 13.8 % Critically low 20.5-60.0 The [facility] Comment on above: Performed By: #### C BC ####[facility] Sbuisjnnyh357[address] [place], [place] [address]Dr. Soniya Chi MANUAL DIFF REQ NO Normal [facility] Comment on above: Performed By: #### C BC ####[facility] Vwgxikekvg4499 [place] [id number]. Soniya Chi MCH (RBC) [Entitic mass] 29.8 pg Normal 26.7-34.0 The [facility] Comment on above: Performed By: #### C BC ####[facility] Oavlntxctx9893 [place] [id number]. Soniya Chi MCHC (RBC) [Mass/Vol] 32.2 g/dL Normal 29.9-35.2 The [facility] Comment on above: Performed By: #### C BC ####[facility] Xwvdbcwflc[address] [place], [place] [address]Dr. Soniya Chi MCV (RBC) [Entitic vol] 92.6 fL Normal 81.0-99.0 The [facility] Comment on above: Performed By: #### C BC ####[facility] Kqbsngxrlf7946[address] [place], [place] [address]Dr. Soniya Chi MONO # 0.7 103/ul Normal 0.3-0.8 The [facility] Comment on above: Performed By: #### C BC ####[facility] Nfzxpymqoa4104[address] [place], [place] [address]Dr. Soniya Chi Monocytes/100 WBC (Bld) 10.5 % Normal 1.7-12.0 The [facility] Comment on above: Performed By: #### C BC ####[facility] Yotdkwwcwk0299[address] [place], [place] [id number]. Soniya Chi NEUT # 4.8 103/ul Normal 1.4-6.5 The [facility] Comment on above: Performed By: #### C BC ####[facility] Ovpwonsxse3280[address] [place], [place] [address]Dr. Soniya Chi Neutrophils/100 WBC (Bld) 74.7 % Normal 43.0-75.0 The [facility] Comment on above: Performed By: #### C BC ####[facility] Zbwxtyjjpk7377[address] [place], [place] [address]Dr. Soniya Chi Platelet mean volume (Bld) [Entitic vol] 10.6 fL Normal 9.5-13.5 The [facility] Comment on above: Performed By: #### C BC ####[facility] Hgbiyadrcy1238 [place], [place] [address]Tc. Soniya Chi PLT 114 103/ul Critically low 150-450 [facility] Comment on above: Performed By: #### C BC ####[facility] Xnojjrhkuv5540 [place], [place] [address]Sz. Soniya Chi RBC 3.25 106/ul Critically low 4.20-5.40 [facility] Comment on above: Performed By: #### C BC ####[facility] Iwsaddeqlb2713 [place] [id number]. Soniya Chi WBC 6.4 103/ul Normal 4.0-11.0 The [facility] Comment on above: Performed By: #### C BC ####[facility] Pbaovonmuc0917 [place] [id number]. Soniya Chi CORTISOLon 05-29-2022 Cortisol 24.0 ug/dL Normal [facility] Comment on above: Result Comment: Javi isol AM 6.2 - 19.4 Cortisol PM 2.3 - 11.9 Performed By: #### C ORTISO ####[facility] Klhzsfywns6650 [place] [id number]. Soniya Chi CULTURE URINEon 05-29-2022 CULTURE URINE Normal [facility] Comment on above: Performed By: #### U RCX ####[facility] Lacyylyfxm9338 [place] [id number]. Soniya Alon PROF CHEM 8 (BAS METB)on Anion gap [Moles/Vol] 11.9 mmol/L Normal [facility] Comment on above: Performed By: #### B MP ####[facility] Wkihvrfjqn7093 [place] [id number]. Soniya Alon Calcium [Mass/Vol] 9.6 mg/dL Normal 8.5-10.1 [facility] Comment on above: Performed By: #### B MP ####[facility] Mckdckvykv2208 [place] [id number]. Soniya Alon Chloride [Moles/Vol] 110 mmol/L Critically high 98-107 [facility] Comment on above: Performed By: #### B MP ####[facility] Vrhqimhhti3765 [place] [address]Dr. Gypsyjuan Alon CO2 [Moles/Vol] 25.4 mmol/L Normal 21.0-32.0 [facility] Comment on above: Performed By: #### B MP ####[facility] Ijlpcvosxw7624 [place] [address]Dr. Soniya Chi Creatinine [Mass/Vol] 1.24 mg/dL Critically high 0.55-1.02 [facility] Comment on above: Performed By: #### B MP ####[facility] Xvqgdizlea7171 [place] [address]Dr. Soniya Chi EGFR-AF JAPANESE 52 mL/min/1.73m2 Critically low >=60 [facility] Comment on above: Performed By: #### B MP ####[facility] Nmrnzdurrv989[address] [place], [place] [address]Dr. Soniya Chi EGFR-NON AF JAPANESE 43 mL/min/1.73m2 Critically low >=60 [facility] Comment on above: Performed By: #### B MP ####[facility] Drcajrltmt4625[address] [place], [place] [address]Dr. Soniya Chi Glucose [Mass/Vol] 111 mg/dL Critically high 74-106 [facility] Comment on above: Performed By: #### B MP ####[facility] Chcjaccbjj6169[address] [place], [place] [address]Dr. Soniya Chi Potassium [Moles/Vol] 3.3 mmol/L Critically low 3.5-5.1 [facility] Comment on above: Performed By: #### B MP ####[facility] Ybzldyyksh5199[address] [place], [place] [address]Dr. Soniya Chi Sodium [Moles/Vol] 144 mmol/L Normal 136-145 [facility] Comment on above: Performed By: #### B MP ####[facility] Jmyymnbntz1954[address] [place], [place] [address]Dr. Soniya Chi Urea nitrogen [Mass/Vol] 17.0 mg/dL Normal 7.0-18.0 The [facility] Comment on above: Performed By: #### B MP ####[facility] Kwyptrmsgr9278[address] [place], [place] [address]Dr. Soniya Chi Urea nitrogen/Creatinin e [Mass ratio] 13.7 mg/mg Normal [facility] Comment on above: Performed By: #### B MP ####[facility] Xjzolhcwiu0149[address] [place], [place] [address]Dr. Soniya Chi CBC AUTO DIFFon 05-28-2022 BASO # 0.0 103/ul Normal 0.0-0.1 The [facility] Comment on above: Performed By: #### C BC ####[facility] Awaytymvbo1829[address] [place], [place] [address]Dr. Soniya Chi Basophils/100 WBC (Bld) 0.2 % Normal 0.2-2.0 [facility] Comment on above: Performed By: #### C BC ####[facility] Ikwqsbzhkc7068[address] [place], [place] [address]Dr. Soniya Chi EO # 0.0 103/ul Normal 0.0-0.7 The [facility] Comment on above: Performed By: #### C BC ####[facility] Wooehwsxnn3718[address] [place], [place] [address]Dr. Soniya Chi Eosinophils/100 WBC (Bld) 0.3 % Critically low 0.9-7.0 [facility] Comment on above: Performed By: #### C BC ####[facility] Mmveflvdgq3610[address] [place], [place] [address]Dr. Soniya Chi Erythrocyte distribution width (RBC) [Ratio] 14.4 % Normal 11.0-15.0 The [facility] Comment on above: Performed By: #### C BC ####[facility] Hgtrhfulfm4447[address] [place], [place] [address]DrKarolina Chi Hematocrit (Bld) [Volume fraction] 30.3 % Critically low 36.0-48.0 The [facility] Comment on above: Performed By: #### C BC ####[facility] Hlgjjbznoh2776[address] [place], [place] [address]Dr. Soniya Chi Hemoglobin (Bld) [Mass/Vol] 9.9 g/dL Critically low 12.0-16.0 The [facility] Comment on above: Performed By: #### C BC ####[facility] Gzuhyvoolj2252 [place] [address]Dr. Soniya Chi IG # 0.02 10e3/ul Normal 0.00-0.03 The [facility] Comment on above: Performed By: #### C BC ####[facility] Udtyayilfb8758 [place] [address]Dr. Soniya Chi IG % 0.3 % Normal 0.0-0.5 The [facility] Comment on above: Performed By: #### C BC ####[facility] Ebrszowjrw0897[address] [place], [place] [address]Dr. Soniya Chi LYMPH # 0.7 103/ul Critically low 1.2-3.8 [facility] Comment on above: Performed By: #### C BC ####[facility] Yqwbtjsldx1269[address] [place], [place] [address]Dr. Soniya Chi Lymphocytes/100 WBC (Bld) 11.7 % Critically low 20.5-60.0 The [facility] Comment on above: Performed By: #### C BC ####[facility] Azpdozhpfz6549[address] [place], [place] [address]Dr. Soniya Chi MANUAL DIFF REQ NO Normal [facility] Comment on above: Performed By: #### C BC ####[facility] Ohixvjrrcs6275[address] [place], [place] [address]Dr. Soniya Chi MCH (RBC) [Entitic mass] 29.8 pg Normal 26.7-34.0 The [facility] Comment on above: Performed By: #### C BC ####[facility] Dxqlpumhkw1966[address] [place], [place] [address]Dr. Soniya Chi MCHC (RBC) [Mass/Vol] 32.7 g/dL Normal 29.9-35.2 The [facility] Comment on above: Performed By: #### C BC ####[facility] Pzmyqfjatn1033[address] [place], [place] [address]Dr. Soniya Chi MCV (RBC) [Entitic vol] 91.3 fL Normal 81.0-99.0 The [facility] Comment on above: Performed By: #### C BC ####[facility] Zmeglpbarw5742 [place] [address]DrKarolina Chi MONO # 0.5 103/ul Normal 0.3-0.8 The [facility] Comment on above: Performed By: #### C BC ####[facility] Popzzatdjo9368[address] [place], [place] [address]DrKarolina Soniya Alon Monocytes/100 WBC (Bld) 8.3 % Normal 1.7-12.0 The [facility] Comment on above: Performed By: #### C BC ####[facility] Ifduvubjvi3759[address] [place], [place] [address]DrKarolina Soniya Chi NEUT # 4.8 103/ul Normal 1.4-6.5 The [facility] Comment on above: Performed By: #### C BC ####[facility] Eokekedwff875[address] [place], [place] [address]DrKarolina Soniya Alon Neutrophils/100 WBC (Bld) 79.2 % Critically high 43.0-75.0 The [facility] Comment on above: Performed By: #### C BC ####[facility] Flqfbgbezk6246[address] [place], [place] [address]DrKarolina Betancurjuan Alon Platelet mean volume (Bld) [Entitic vol] 10.4 fL Normal 9.5-13.5 The [facility] Comment on above: Performed By: #### C BC ####[facility] Ntffbtayyc0108[address] [place], [place] [address]DrKarolina Soniya Alon PLT 112 103/ul Critically low 150-450 [facility] Comment on above: Performed By: #### C BC ####[facility] Rxrwspiyix6277 [place] [id number] Betancurjuan Alon RBC 3.32 106/ul Critically low 4.20-5.40 [facility] Comment on above: Performed By: #### C BC ####[facility] Uelblnpaqj1332[address] [place], [place] [address]DrKarolina Chi WBC 6.1 103/ul Normal 4.0-11.0 The [facility] Comment on above: Performed By: #### C BC ####[facility] Wfnzxqheqd3364 [place] [id number]. Soniya Chi BASO # 0.0 103/ul Normal 0.0-0.1 The [facility] Comment on above: Performed By: #### C BC ####[facility] Hqobswjfyj5067[address] [place], [place] [address]Dr. Soniya Chi Basophils/100 WBC (Bld) 0.2 % Normal 0.2-2.0 The [facility] Comment on above: Performed By: #### C BC ####[facility] Oiaxkwzqzd4256[address] [place], [place] [address]Dr. Soniya Chi EO # 0.1 103/ul Normal 0.0-0.7 The [facility] Comment on above: Performed By: #### C BC ####[facility] Npbnoeiitk2054[address] [place], [place] [address]Dr. Soniya Chi Eosinophils/100 WBC (Bld) 1.1 % Normal 0.9-7.0 The [facility] Comment on above: Performed By: #### C BC ####[facility] Kmmqigjowp1110[address] [place], [place] [address]Dr. Soniya Chi Erythrocyte distribution width (RBC) [Ratio] 14.1 % Normal 11.0-15.0 The [facility] Comment on above: Performed By: #### C BC ####[facility] Oouzsodvue04[address] [place], [place] [id number]. Soniya Chi Hematocrit (Bld) [Volume fraction] 31.3 % Critically low 36.0-48.0 The [facility] Comment on above: Performed By: #### C BC ####[facility] Phkkeqycte3199[address] [place], [place] [address]Dr. Soniya Chi Hemoglobin (Bld) [Mass/Vol] 10.5 g/dL Critically low 12.0-16.0 The [facility] Comment on above: Performed By: #### C BC ####[facility] Dwgsohlntn6868[address] [place], [place] [address]Dr. Soniya Chi IG # 0.02 10e3/ul Normal 0.00-0.03 The [facility] Comment on above: Performed By: #### C BC ####[facility] Hjdnxortvk9665 [place] [address]DrKarolina Soniya Chi IG % 0.3 % Normal 0.0-0.5 [facility] Comment on above: Performed By: #### C BC ####[facility] Hxyawzhekp0652 [place] [address]DrKarolina Soniya Alon LYMPH # 0.8 103/ul Critically low 1.2-3.8 [facility] Comment on above: Performed By: #### C BC ####[facility] Lmfenkzlis9142 [place] [address]DrKarolina Soniya Alon Lymphocytes/100 WBC (Bld) 13.4 % Critically low 20.5-60.0 [facility] Comment on above: Performed By: #### C BC ####[facility] Ntkmdjapvo5618 [place] [address]DrKarolina Soniya Alon MANUAL DIFF REQ NO Normal [facility] Comment on above: Performed By: #### C BC ####[facility] Exzlxvlkcm1313 [place] [address]DrKarolina Soniya Alon MCH (RBC) [Entitic mass] 30.1 pg Normal 26.7-34.0 The [facility] Comment on above: Performed By: #### C BC ####[facility] Vjepmamvsv1356 [place] [address]DrKarolina Soniya Alon MCHC (RBC) [Mass/Vol] 33.5 g/dL Normal 29.9-35.2 The [facility] Comment on above: Performed By: #### C BC ####[facility] Lgtiyaiseb1520 [place] [address]DrKarolina Soniya Alon MCV (RBC) [Entitic vol] 89.7 fL Normal 81.0-99.0 The [facility] Comment on above: Performed By: #### C BC ####[facility] Gciuwsrjwb7770 [place] [address]Dr. Soniya Chi MONO # 0.6 103/ul Normal 0.3-0.8 The [facility] Comment on above: Performed By: #### C BC ####[facility] Wdlrrzcqio9004 [place] [id number]. Soniya Chi Monocytes/100 WBC (Bld) 9.8 % Normal 1.7-12.0 The [facility] Comment on above: Performed By: #### C BC ####[facility] Oirqicbdvs1603 [place] [address]Dr. Soniya Chi NEUT # 4.6 103/ul Normal 1.4-6.5 The [facility] Comment on above: Performed By: #### C BC ####[facility] Gvckcpwwmy5319 [place] [address]Dr. Soniya Chi Neutrophils/100 WBC (Bld) 75.2 % Critically high 43.0-75.0 The [facility] Comment on above: Performed By: #### C BC ####[facility] Koytjqjmdj3891 [place] [address]Dr. Soniya Chi Platelet mean volume (Bld) [Entitic vol] 10.6 fL Normal 9.5-13.5 The [facility] Comment on above: Performed By: #### C BC ####[facility] Abmqiizgqc8063 [place] [address]Dr. Soniya Chi PLT 128 103/ul Critically low 150-450 [facility] Comment on above: Performed By: #### C BC ####[facility] Dycdwtsitc0137 [place] [id number]. Soniya Chi RBC 3.49 106/ul Critically low 4.20-5.40 [facility] Comment on above: Performed By: #### C BC ####[facility] Arvljfinjj7966[address] [place], [place] [address]Dr. Soniya Chi WBC 6.1 103/ul Normal 4.0-11.0 The [facility] Comment on above: Performed By: #### C BC ####[facility] Ouvwkeinfn4759 [place] [address]Dr. Soniya Chi FREE T4on 05-28-2022 Free T4 [Mass/Vol] 0.93 ng/dL Normal 0.76-1.46 [facility] Comment on above: Performed By: #### B 12FOL, FT4, FETIBC ####[facility] Uwtdhzuuhg0929 [place] [address]Dr. oSniya Chi IRON AND TIBCon 05-28-2022 % SATURATION 32.6 % Normal [facility] Comment on above: Performed By: #### B 12FOL, FT4, FETIBC ####[facility] Tssphpvabd4326 [place] [address]Dr. Soniya Chi Iron [Mass/Vol] 94.0 ug/dL Normal 50.0-170.0 [facility] Comment on above: Performed By: #### B 12FOL, FT4, FETIBC ####[facility] Aozdfpfkap6829 [place] [address]Dr. Soniya Chi TIBC DIRECT 288.0 ug/dL Normal 250.0-450.0 [facility] Comment on above: Performed By: #### B 12FOL, FT4, FETIBC ####[facility] Mjxhasaisl2118 [place] [address]Dr. Soniya Chi POINT OF CARE GLUCOSEon 05-03 Glucose [Mass/Vol] 123 mg/dL Critically high 74-[address] [facility] Comment on above: Performed By: #### P OCGLUC ####[facility] Vrmfoeswvv6893[address] [place], [place] [address]Dr. Soniya Chi PROF CHEM 8 (BAS METB)on Anion gap [Moles/Vol] 11.2 mmol/L Normal [facility] Comment on above: Performed By: #### B MP ####[facility] Jfscgixvph4701[address] [place], [place] [address]Dr. Soniya Chi Calcium [Mass/Vol] 9.0 mg/dL Normal 8.5-10.1 [facility] Comment on above: Performed By: #### B MP ####[facility] Stebfvmmyh299[address] [place], [place] [address]Dr. Soniya Chi Chloride [Moles/Vol] 108 mmol/L Critically high 98-107 [facility] Comment on above: Performed By: #### B MP ####[facility] Shavwtqjbo7778 [place] [address]Dr. Soniya Chi CO2 [Moles/Vol] 26.4 mmol/L Normal 21.0-32.0 [facility] Comment on above: Performed By: #### B MP ####[facility] Xlvstzxtwf647[address] [place], [place] [address]Dr. Soniya Chi Creatinine [Mass/Vol] 1.30 mg/dL Critically high 0.55-1.02 [facility] Comment on above: Performed By: #### B MP ####[facility] Nlbmcchswy7[address] [place], [place] [address]Dr. Soniya Chi EGFR-AF J[place]ESE 50 mL/min/1.73m2 Critically low >=60 [facility] Comment on above: Performed By: #### B MP ####[facility] Parxkibrwc7927[address] [place], [place] [address]Dr. Soniya Chi EGFR-NON AF [place] 41 mL/min/1.73m2 Critically low >=60 [facility] [facility] Comment on above: Performed By: #### B MP ####[facility] Wxbqjlkbfx38[address] [place], [place] [address]Dr. Soniya Chi Glucose [Mass/Vol] 115 mg/dL Critically high 74-106 [facility] Comment on above: Performed By: #### B MP ####[facility] Zmsogoespl4134[address] [place], [place] [address]Dr. Soniya Chi Potassium [Moles/Vol] 3.6 mmol/L Normal 3.5-5.1 [facility] Comment on above: Performed By: #### B MP ####[facility] Pvaomkpxxr3075[address] [place], [place] [address]Dr. Soniya Chi Sodium [Moles/Vol] 142 mmol/L Normal 136-145 [facility] Comment on above: Performed By: #### B MP ####[facility] Oghloozpny8880[address] [place], [place] [address]Dr. Soniya Chi Urea nitrogen [Mass/Vol] 20.0 mg/dL Critically high 7.0-18.0 [facility] Comment on above: Performed By: #### B MP ####[facility] Eoilirgtng5[address] [place] [address]Dr. Soniya Chi Urea nitrogen/Creatinin e [Mass ratio] 15.4 mg/mg Normal [facility] Comment on above: Performed By: #### B MP ####[facility] Lsqtgtihjf5056 [place] [address]Dr. Soniya Chi Anion gap [Moles/Vol] 12.7 mmol/L Normal [facility] Comment on above: Performed By: #### B MP ####[facility] Nsmploxznm3019[address] [place], [place] [address]Dr. Soniya Chi Calcium [Mass/Vol] 9.1 mg/dL Normal 8.5-10.1 [facility] Comment on above: Performed By: #### B MP ####[facility] Ulyyexbobr9166[address] [place], [place] [address]Dr. Soniya Chi Chloride [Moles/Vol] 107 mmol/L Normal 98-107 [facility] Comment on above: Performed By: #### B MP ####[facility] Vshgspvnxp0929[address] [place], [place] [address]Dr. Soniya Chi CO2 [Moles/Vol] 27.7 mmol/L Normal 21.0-32.0 [facility] Comment on above: Performed By: #### B MP ####[facility] Bywwuurous924[address] [place], [place] [address]Dr. Soniya Chi Creatinine [Mass/Vol] 1.25 mg/dL Critically high 0.55-1.02 [facility] Comment on above: Performed By: #### B MP ####[facility] Wotywtfljj4325[address] [place], [place] [address]Dr. Soniya Chi EGFR-AF JAPANESE 52 mL/min/1.73m2 Critically low >=60 [facility] Comment on above: Performed By: #### B MP ####[facility] Wrtqrpqugc548[address] [place], [place] [address]Dr. Soniya Chi EGFR-NON AF JAPANESE 43 mL/min/1.73m2 Critically low >=60 [facility] Comment on above: Performed By: #### B MP ####[facility] Yquepqwwsl8374 [place] [address]Dr. Soniya Chi Glucose [Mass/Vol] 77 mg/dL Normal 74-106 [facility] Comment on above: Performed By: #### B MP ####[facility] Zamsuqylwm2517 [place] [address]Dr. Soniya Chi Potassium [Moles/Vol] 3.4 mmol/L Critically low 3.5-5.1 [facility] Comment on above: Performed By: #### B MP ####[facility] Rggaywzyvt569[address] [place], [place] [address]Dr. Soniya Chi Sodium [Moles/Vol] 144 mmol/L Normal 136-145 [facility] Comment on above: Performed By: #### B MP ####[facility] Xmkvcfeuvv228[address] [place], [place] [address]Dr. Soniya Chi Urea nitrogen [Mass/Vol] 21.0 mg/dL Critically high 7.0-18.0 [facility] Comment on above: Performed By: #### B MP ####[facility] Esakxbvbwg4477[address] [place], [place] [address]Dr. Soniya Chi Urea nitrogen/Creatinin e [Mass ratio] 16.8 mg/mg Normal The [facility] Comment on above: Performed By: #### B MP ####[facility] Cngfqnufyu0106 [place] [address]Dr. Soniya Chi VIT B12 AND FOLATEon 05-28- 022 Cobalamin (Vitamin B12) [Mass/Vol] 500.0 pg/mL Normal 193.0-986.0 [facility] Comment on above: Performed By: #### B 12FOL, FT4, FETIBC ####[facility] Rjxwmyroup8944 [place] [address]Dr. Soniya Chi FOLATE 10.30 ng/mL Normal 8.60-58.90 [facility] Comment on above: Performed By: #### B 12FOL, FT4, FETIBC ####[facility] Dtexicpkfv2960 [place] [address]Dr. Soniya Chi AMMONIAon 05-27-2022 Ammonia (P) [Moles/Vol] 15 umol/L Normal 11-32 [facility] Comment on above: Performed By: #### A MM ####[facility] Tuoetqsnct1070[address] [place], [place] [address]Dr. Soniya Chi CBC AUTO DIFFon 05-27-2022 BASO # 0.0 103/ul Normal 0.0-0.1 [facility] Comment on above: Performed By: #### C BC ####[facility] Cunekgkyas7679[address] [place], [place] [address]Dr. Soniya Chi Basophils/100 WBC (Bld) 0.4 % Normal 0.2-2.0 [facility] Comment on above: Performed By: #### C BC ####[facility] Mjktsqpokp0732[address] [place], [place] [address]Dr. Soniya Chi EO # 0.1 103/ul Normal 0.0-0.7 [facility] Comment on above: Performed By: #### C BC ####[facility] Lmkdmfanji1965[address] [place], [place] [address]Dr. Soniya Chi Eosinophils/100 WBC (Bld) 1.5 % Normal 0.9-7.0 [facility] Comment on above: Performed By: #### C BC ####[facility] Sfodatearg215140 [address] [place], [place] [address]Dr. Soniya Chi Erythrocyte distribution width (RBC) [Ratio] 14.2 % Normal 11.0-15.0 [facility] Comment on above: Performed By: #### C BC ####[facility] Vtumlocchc4879[address] [place], [place] [address]DrKarolina Chi Hematocrit (Bld) [Volume fraction] 36.0 % Normal 36.0-48.0 [facility] Comment on above: Performed By: #### C BC ####[facility] Vxrptvoijx9912[address] [place], [place] [address]DrKarolina Chi Hemoglobin (Bld) [Mass/Vol] 11.9 g/dL Critically low 12.0-16.0 [facility] Comment on above: Performed By: #### C BC ####[facility] Mpsrydkrsn8217 [place] [address]DrKarolina Chi IG # 0.02 10e3/ul Normal 0.00-0.03 [facility] Comment on above: Performed By: #### C BC ####[facility] Ijcedpetvb4358 [place] [address]DrKarolina Chi IG % 0.4 % Normal 0.0-0.5 [facility] Comment on above: Performed By: #### C BC ####[facility] Kmkaltkxpw6216[address] [place], [place] [address]DrKarolina Chi LYMPH # 1.0 103/ul Critically low 1.2-3.8 [facility] Comment on above: Performed By: #### C BC ####[facility] Oyebxmkyvk0025[address] [place], [place] [address]DrKarolina Chi Lymphocytes/100 WBC (Bld) 18.1 % Critically low 20.5-60.0 [facility] Comment on above: Performed By: #### C BC ####[facility] Edlalrhsyo3083[address] [place], [place] [address]DrKarolina Chi MANUAL DIFF REQ NO Normal [facility] Comment on above: Performed By: #### C BC ####[facility] Pppbeqovlr867[address] [place], [place] [address]DrKarolina Chi MCH (RBC) [Entitic mass] 29.9 pg Normal 26.7-34.0 [facility] Comment on above: Performed By: #### C BC ####[facility] Ugielhdxvk7018[address] [place], [place] [address]DrKarolina Chi MCHC (RBC) [Mass/Vol] 33.1 g/dL Normal 29.9-35.2 [facility] Comment on above: Performed By: #### C BC ####[facility] Isfsibefxr0070[address] [place], [place] [address]DrKarolina Chi MCV (RBC) [Entitic vol] 90.5 fL Normal 81.0-99.0 [facility] Comment on above: Performed By: #### C BC ####[facility] Vdryubhkuu9958[address] [place], [place] [address]DrKarolina Soniya Chi MONO # 0.3 103/ul Normal 0.3-0.8 [facility] Comment on above: Performed By: #### C BC ####[facility] Rljxjfwtsd3411[address] [place], [place] [address]DrKarolina Soniya Alon Monocytes/100 WBC (Bld) 5.4 % Normal 1.7-12.0 [facility] Comment on above: Performed By: #### C BC ####[facility] Uchiudujpw669140 [address] [place], [place] [address]DrKarolina Soniya Chi NEUT # 4.0 103/ul Normal 1.4-6.5 [facility] Comment on above: Performed By: #### C BC ####[facility] Xqpmhagixy3210[address] [place], [place] [address]DrKarolina Soniya Chi Neutrophils/100 WBC (Bld) 74.2 % Normal 43.0-75.0 [facility] Comment on above: Performed By: #### C BC ####[facility] Uxdsmsmlua9835[address] [place], [place] [address]DrKarolina Soniya Alon Platelet mean volume (Bld) [Entitic vol] 10.0 fL Normal 9.5-13.5 [facility] Comment on above: Performed By: #### C BC ####[facility] Jewnzwubua7233[address] [place], [place] [address]DrKarolina Snoiya Alon PLT 140 103/ul Critically low 150-450 [facility] Comment on above: Performed By: #### C BC ####[facility] Cxexmgiyjb400[address] [place], [place] [id number] Betancurjuan Alon RBC 3.98 106/ul Critically low 4.20-5.40 [facility] Comment on above: Performed By: #### C BC ####[facility] Pklzrzrcxq1170[address] [place], [place] [address]Dr. Soniya Chi WBC 5.4 103/ul Normal 4.0-11.0 [facility] Comment on above: Performed By: #### C BC ####[facility] Gfwmimeksv1268 [place], [place] [address]Zj. Soniya Chi CT STROKE HEAD WOon 05-27-[address] STROKE HEAD WO Normal The [facility] CTA HEAD WO W CONon 05-27-20 22 CTA HEAD WO W CON Normal [facility] CULTURE BLOODon 05-27-2022 Microscopic examination of blood, culture Culture Observations: NO GROWTH AT 5 DAYS. Normal The [facility] Comment on above: Performed By: #### B LDCX2 ####[facility] Ktvkzugajb3837 [place], [place] [address]Wl. Soniya Chi Microscopic examination of blood, culture Culture Observations: NO GROWTH AT 5 DAYS. Normal [facility] Comment on above: Performed By: #### B LDCX1 ####[facility] Ncvmvxbzni8360 [place], [place] [address]Ak. Soniya Chi Covid-19 PCR (CVDTBH)on 05-03 SARS-CoV-2 (COVID-19) RNA DORIAN+probe Ql (Unsp spec) Not detected Normal NOT DETECTED [facility] Comment on above: Result Comment: When [...] for this test is supported by the [place] of Health and Human Service's declaration that [...] be used). Performed By: #### C VDTBH ####[facility] Zocguuhpyq8325[address] [place], [place] [address]Dr. Soniya Chi ER URINE PROFILEon 2 Bilirubin Ql (U) Negative Normal NEGATIVE [facility] Comment on above: Performed By: #### MARCOS WELDON ####[facility] Otrjgztmua5504[address] [place], [place] [address]Dr. Soniya Chi Clarity (U) CLEAR Normal CLEAR The [facility] Comment on above: Performed By: #### MARCOS WELDON ####[facility] Aqcpmzovsp6926[address] [place], [place] [address]Dr. Soniya Chi Color (U) LT. YELLOW Normal YELLOW The [facility] Comment on above: Performed By: #### MARCOS WELDON ####[facility] Onmimtchek0813[address] [place], [place] [address]Dr. Soniya Chi ERUAHD A micrscopic examination will be performed if indicated. Normal The [facility] Comment on above: Performed By: #### MARCOS WELDON ####[facility] Pikbcktred6947[address] [place], [place] [address]Dr. Soniya Chi Glucose Ql (U) Negative Normal NEGATIVE [facility] Comment on above: Performed By: #### MARCOS WELDON ####[facility] Bvngehmqwz1299[address] [place], [place] [address]Dr. Gypsylan Chi Hemoglobin Ql (U) Negative Normal NEGATIVE [facility] Comment on above: Performed By: #### MARCOS WELDON ####[facility] Tgcevmiooe6775[address] [place], [place] [address]Dr. Soniya Chi Ketones Ql (U) Negative Normal NEGATIVE [facility] Comment on above: Performed By: #### MARCOS WELDON ####[facility] Tqazlpmvzr7094[address] [place], [place] [address]Dr. Soniya Chi LEUKOCYTES SMALL Abnormal NEGATIVE The [facility] Comment on above: Performed By: #### MARCOS WELDON ####[facility] Othwdawkzr7416[address] [place], [place] [address]Dr. Gypsylan Chi Nitrite Ql (U) Negative Normal NEGATIVE [facility] Comment on above: Performed By: #### Benoit CARTER UMICRO ####[facility] Aabtnwxcfk7993 [place] [address]Dr. Soniya Chi pH (U) 6.0 [pH] Normal 5-9 [facility] Comment on above: Performed By: #### Benoit CARTER UMICRO ####[facility] Xsueiknwnh1374 [place] [address]Dr. Soniya Chi SPEC GRAVITY 1.020 Normal 1.005-<=1.025 [facility] Comment on above: Performed By: #### Benoit CARTER UMICRO ####[facility] Wrkiiyvmjl7269[address] [place], [place] [address]Dr. Soniya Chi UA PROTEIN Negative Normal NEGATIVE/ TRACE [facility] Comment on above: Performed By: #### Benoit CARTER UMICRO ####[facility] Aipecckbpg8407[address] [place], [place] [address]Dr. Soniya Chi UR MICRO IND INDICATED Normal The [facility] Comment on above: Performed By: #### Benoit CARTER UMICRO ####[facility] Vsnjtambcd7030[address] [place], [place] [address]Dr. Soniya Chi Urobilinogen Qn (U) 0.2 {Casimiro'U}/dL Normal 0.2 - 1.0 [facility] Comment on above: Performed By: #### Benoit CARTER UMICRO ####[facility] Ymrsfifbhd4570[address] [place], [place] [address]Dr. Soniya Chi FREE T3on 05-27-2022 FREE T3 2.63 pg/mlL Normal 2.18-3.98 [facility] Comment on above: Performed By: #### F T3, TSH ####[facility] Sredovmjzh110[address] [place], [place] [address]Dr. Soniya Chi INFLUENZA A AND B AGon 05-27 INFLUANEGH SEE BELOW Normal [facility] Comment on above: Result Comment: Nega tive for Flu A protein angiten. Infection due to Flu A cannot be ruled out. Flu A angiten in the sample may be below the detection limit of the test. Performed By: #### I NFLUAB ####[facility] Vphzxlznvf6727[address] [place], [place] [address]Dr. Soniya Chi INFLUBNEGH SEE BELOW Normal [facility] Comment on above: Result Comment: Nega tive for Flu B protein antigen. Infection due to Flu B cannot be ruled out. Flu B antigen in the sample may be below the detection limit of the test. Performed By: #### I NFLUAB ####[facility] Pkhjqhteem3215[address] [place], [place] [address]Dr. Soniya Chi INFLUENZA A AG Negative Normal NEGATIVE SEE COMMENT The [facility] Comment on above: Performed By: #### I NFLUAB ####[facility] Yromjdeesi73[address] [place], [place] [address]Dr. Soniya Chi INFLUENZA B AG Negative Normal NEGATIVE SEE COMMENT [facility] Comment on above: Performed By: #### I NFLUAB ####[facility] Bwwrphubzf259[address] [place], [place] [address]Dr. Soniya Chi INTERNAL CONTROLS Within Normal Limits Normal Within Normal Limits [facility] Comment on above: Performed By: #### I NFLUAB ####[facility] Mffmtjqhnp4276[address] [place], [place] [address]DrKarolina Chi LACTATE/LACTIC ACIDon 2021 Lactate [Moles/Vol] 1.2 mmol/L Normal 0.4-1.9 The [facility] Comment on above: Performed By: #### L ACT ####[facility] Inzmdiyhhh2943[address] [place], [place] [address]Dr. Soniya Chi POINT OF CARE GLUCOSEon 05-03 Glucose [Mass/Vol] 89 mg/dL Normal 74-106 [facility] Comment on above: Performed By: #### P OCGLUC ####[facility] Qqdzhnenmv0036[address] [place], [place] [address]Dr. Soniya Chi Glucose [Mass/Vol] 89 mg/dL Normal 74-106 [facility] Comment on above: Performed By: #### P OCGLUC ####[facility] Xdpjwnvgsa8640[address] [place], [place] [address]DrKarolina Chi PROF 14(COMP METB)on 022 Albumin [Mass/Vol] 3.7 g/dL Normal 3.4-5.0 [facility] Comment on above: Performed By: #### C MP ####[facility] Ainobqpglr4675 [place] [address]Dr. Soniya Cih Albumin/Globulin [Mass ratio] 0.9 {ratio} Normal [facility] Comment on above: Performed By: #### C MP ####[facility] Hddzzrkdtm4985 [place] [address]Dr. Soniya Chi ALP [Catalytic activity/Vol] 92 U/L Normal 46-116 [facility] Comment on above: Performed By: #### C MP ####[facility] Qjizaxofzg5959[address] [place], [place] [address]Dr. Soniya Chi ALT [Catalytic activity/Vol] 34 U/L Normal 14-59 [facility] Comment on above: Performed By: #### C MP ####[facility] Mmxqbompkd3486[address] [place], [place] [address]DrKarolina Chi Anion gap [Moles/Vol] 11.0 mmol/L Normal [facility] Comment on above: Performed By: #### C MP ####[facility] Uargwrcdys415[address] [place], [place] [address]DrKarolina Chi AST [Catalytic activity/Vol] 19 U/L Normal 15-37 [facility] Comment on above: Performed By: #### C MP ####[facility] Wevvzonvmq077[address] [place], [place] [address]DrKarolina Chi Bilirubin [Mass/Vol] 1.0 mg/dL Normal 0.2-1.0 [facility] Comment on above: Performed By: #### C MP ####[facility] Cpwjwwpukv3637[address] [place], [place] [address]DrKarolina Chi Calcium [Mass/Vol] 10.2 mg/dL Critically high 8.5-10.[address] [facility] Comment on above: Performed By: #### C MP ####[facility] Lawocoqtty8868[address] [place], [place] [address]Dr. Soniya Alon Chloride [Moles/Vol] 103 mmol/L Normal 98-107 [facility] Comment on above: Performed By: #### C MP ####[facility] Auauymdmds1940 [place] [address]Dr. Soniya Chi CO2 [Moles/Vol] 31.6 mmol/L Normal 21.0-32.0 [facility] Comment on above: Performed By: #### C MP ####[facility] Ncddgfsiru508[address] [place], [place] [address]Dr. Soniya Alon Creatinine [Mass/Vol] 1.15 mg/dL Critically high 0.55-1.02 [facility] Comment on above: Performed By: #### C MP ####[facility] Ouamkycofm896[address] [place], [place] [address]Dr. Gypsyjuan Alon EGFR-AF JAP[place]ESE 57 mL/min/1.73m2 Critically low >=60 [facility] Comment on above: Performed By: #### C MP ####[facility] Kywntkajrv8949[address] [place], [place] [address]Dr. Soniya Alon EGFR-NON AF JAP[place]ESE 47 mL/min/1.73m2 Critically low >=60 [facility] Comment on above: Performed By: #### C MP ####[facility] Krfyhzyvxl0478[address] [place], [place] [address]Dr. Gypsyjuan Chi Globulin (S) [Mass/Vol] 4.0 g/dL Normal [facility] Comment on above: Performed By: #### C MP ####[facility] Fbhtuitiht146[address] [place], [place] [address]Dr. Soniya Alon Glucose [Mass/Vol] 82 mg/dL Normal 74-106 [facility] Comment on above: Performed By: #### C MP ####[facility] Gtfmwkwdpr890[address] [place], [place] [address]Dr. Gypsyjuan Chi Potassium [Moles/Vol] 3.6 mmol/L Normal 3.5-5.1 [facility] Comment on above: Performed By: #### C MP ####[facility] Urhzyijxyt3325[address] [place], [place] [address]Dr. Soniya Chi Protein [Mass/Vol] 7.7 g/dL Normal 6.4-8.2 [facility] Comment on above: Performed By: #### C MP ####[facility] Khexnzxupy6963 [place] [address]Dr. Soniya Chi Sodium [Moles/Vol] 142 mmol/L Normal 136-145 [facility] Comment on above: Performed By: #### C MP ####[facility] Ywksudhssf0706[address] [place], [place] [address]Dr. Soniya Chi Urea nitrogen [Mass/Vol] 31.0 mg/dL Critically high 7.0-18.0 [facility] Comment on above: Performed By: #### C MP ####[facility] Fukdxggglx0649[address] [place], [place] [address]Dr. Soniya Chi Urea nitrogen/Creatinin e [Mass ratio] 27.0 mg/mg Normal [facility] Comment on above: Performed By: #### C MP ####[facility] Bjsfkcdlvc652[address] [place], [place] [address]Dr. Soniya Chi TSHon 05-27-2022 TSH 8.165 uIU/mL Critically high 0.358-3.740 [facility] Comment on above: Performed By: #### F T3, TSH ####[facility] Ucpedughmr8430[address] [place], [place] [address]Dr. Soniya Chi URINE MICROSCOPIC ONLYon BACTERIA TRACE Abnormal NONE SEEN [facility] Comment on above: Performed By: #### MARCOS WELDON ####[facility] [address]vqyfgctye[address] [place], [place] [address]Dr. Soniya Chi Bacteria identified Cx Nom (U) INDICATED Normal [facility] Comment on above: Performed By: #### DENIZ WELDONRO ####[facility] Oglethfvsq684[address] [place], [place] [address]Dr. Soniya Alon CAST NONE SEEN Normal NONE SEEN [facility] Comment on above: Performed By: #### MARCOS WELDON ####[facility] Rfnhtecevr035[address] [place], [place] [address]Dr. Gypsyjuan Chi Crystals LM Nom (Urine sed) NONE SEEN Normal NONE SEEN [facility] Comment on above: Performed By: #### E RIAR UMICRO ####[facility] Ze[address]wnzjwid4488 [place] [address]Dr. Gypsyjuan Chi Epithelial cells LM Ql (Urine sed) FEW Abnormal NONE SEEN /RARE [facility] Comment on above: Performed By: #### Benoit RUR, UMICRO ####[facility] [address]pslcqmwiw85[address] [place] [id number]. Gypsyjuan Chi MUCOUS NONE SEEN Normal NONE SEEN [facility] Comment on above: Performed By: #### E RIAR UMICRO ####[facility] Fwrlralqbk7054 [place] [address]Dr. Gypsyjuan Chi RBC NONE SEEN Abnormal 0-2 [facility] Comment on above: Performed By: #### Benoit CARTER UMICRO ####[facility] Pbxhozlzpw5398 [place] [address]Dr. Soniya Chi WBC 2-5 Abnormal NONE SEEN [facility] Comment on above: Performed By: #### Benoit CARTER, UMICRO ####[facility] Wjkkpgfslv5782 [place] [address]Dr. Soniya Chi XR CHEST 1 Von 05-27-2022 XR CHEST 1 V Normal [facility]on SARS-CoV-2 (COVID-19) RNA DORIAN+probe Ql (Unsp spec) Not detected Normal NOT DETECTED [facility] Comment on above: Result Comment: This test is not yet approved or cleared by the [place] FDA. When there are no FDA-approved or cleared tests available, and other criteria are met, FDA can make tests available under an emergency access mechanism called an Emergency Use Authorization (EUA). The EUA for this test is supported by the [employer] of Health and Human Service's (HHS's) declaration [...] with SARS-CoV-2. Performed By: #### C VDTB ####[facility] Kvhqiipgdr8354 [place] [address]Dr. Soniya Chi CBC AUTO DIFFon 04-23-2022 BASO # 0.0 103/ul Normal 0.0-0.1 [facility] Comment on above: Performed By: #### C BC ####[facility] Tixerpouhn[address] [place], [place] [address]Dr. Soniya Chi Basophils/100 WBC (Bld) 0.4 % Normal 0.2-2.0 [facility] Comment on above: Performed By: #### C BC ####[facility] Kucicbjvtd656[address] [place], [place] [address]Dr. Soniya Chi EO # 0.1 103/ul Normal 0.0-0.7 [facility] Comment on above: Performed By: #### C BC ####[facility] Qgdfbukwdr63[address] [place], [place] [address]Dr. Soniya Chi Eosinophils/100 WBC (Bld) 1.9 % Normal 0.9-7.0 [facility] Comment on above: Performed By: #### C BC ####[facility] Dromujligg9088[address] [place], [place] [address]Dr. Soniya Chi Erythrocyte distribution width (RBC) [Ratio] 13.4 % Normal 11.0-15.0 [facility] Comment on above: Performed By: #### C BC ####[facility] Gnnrkgazrh56[address] [place], [place] [address]DrKarolina Chi Hematocrit (Bld) [Volume fraction] 37.0 % Normal 36.0-48.0 [facility] Comment on above: Performed By: #### C BC ####[facility] Pjoilyqsdz3233[address] [place], [place] [address]Dr. Soniya Chi Hemoglobin (Bld) [Mass/Vol] 12.1 g/dL Normal 12.0-16.0 [facility] Comment on above: Performed By: #### C BC ####[facility] Ewwavzdhhr6098 [place] [address]DrKarolina Chi IG # 0.01 10e3/ul Normal 0.00-0.03 [facility] Comment on above: Performed By: #### C BC ####[facility] Gjzzmubkmn88[address] [place], [place] [address]Dr. Soniya Chi IG % 0.2 % Normal 0.0-0.5 [facility] Comment on above: Performed By: #### C BC ####[facility] Ikzxjjjkvl1365[address] [place], [place] [address]DrKarolina Chi LYMPH # 1.8 103/ul Normal 1.2-3.8 [facility] Comment on above: Performed By: #### C BC ####[facility] Buajnlhjmm9032[address] [place], [place] [address]DrKarolina Chi Lymphocytes/100 WBC (Bld) 30.9 % Normal 20.5-60.0 [facility] Comment on above: Performed By: #### C BC ####[facility] Dubkabkmdv1396[address] [place], [place] [address]DrKarolina Chi MANUAL DIFF REQ NO Normal [facility] Comment on above: Performed By: #### C BC ####[facility] Gkdapmxotr7559[address] [place], [place] [address]DrKarolina Chi MCH (RBC) [Entitic mass] 29.7 pg Normal 26.7-34.0 [facility] Comment on above: Performed By: #### C BC ####[facility] Svcgshbqoy5[address] [place], [place] [address]DrKarolina Chi MCHC (RBC) [Mass/Vol] 32.7 g/dL Normal 29.9-35.2 [facility] Comment on above: Performed By: #### C BC ####[facility] Mkfthudnxj[address] [place], [place] [address]DrKarolina Chi MCV (RBC) [Entitic vol] 90.7 fL Normal 81.0-99.0 [facility] Comment on above: Performed By: #### C BC ####[facility] Gxnnhjkeyp4[address] [place], [place] [address]Dr. Soniya Chi MONO # 0.4 103/ul Normal 0.3-0.8 [facility] Comment on above: Performed By: #### C BC ####[facility] Zutyzkzdpg0075[address] [place], [place] [address]Dr. Soniya Alon Monocytes/100 WBC (Bld) 6.5 % Normal 1.7-12.0 [facility] Comment on above: Performed By: #### C BC ####[facility] Bvuwbyobsz512[address] [place], [place] [address]Dr. Soniya Chi NEUT # 3.4 103/ul Normal 1.4-6.5 [facility] Comment on above: Performed By: #### C BC ####[facility] Yfiiqzhoff6801[address] [place], [place] [address]Dr. Soniya Alon Neutrophils/100 WBC (Bld) 60.1 % Normal 43.0-75.0 [facility] Comment on above: Performed By: #### C BC ####[facility] Cinxntmwzx3896[address] [place], [place] [address]Dr. Soniya Alon Platelet mean volume (Bld) [Entitic vol] 10.0 fL Normal 9.5-13.5 [facility] Comment on above: Performed By: #### C BC ####[facility] Sshptvyrtf13[address] [place], [place] [address]Dr. Soniya Alon PLT 193 103/ul Normal 150-450 [facility] Comment on above: Performed By: #### C BC ####[facility] Zkgpsklynd2508[address] [place], [place] [address]Dr. Gypsyjuan Alon RBC 4.08 106/ul Critically low 4.20-5.40 [facility] Comment on above: Performed By: #### C BC ####[facility] Yniavcymuc9735[address] [place], [place] [address]Dr. Soniya Chi WBC 5.7 103/ul Normal 4.0-11.0 [facility] Comment on above: Performed By: #### C BC ####[facility] Gsgtrzkznd6274 [place] [address]Dr. Soniya Chi FREE T3on 04-23-2022 FREE T3 2.90 pg/mlL Normal 2.18-3.98 [facility] Comment on above: Performed By: #### F T3, LIPID, CMP, TSH ####[facility] Cbeuxtddjg[address] [place] [id number]. Soniya Chi FREE T4on 04-23-2022 Free T4 [Mass/Vol] 0.91 ng/dL Normal 0.76-1.46 [facility] Comment on above: Performed By: #### F T4 ####[facility] Uddezmozpv[address]3 [place] [address]Dr. Soniya Chi LIPID PROFILEon 04-23-2022 CHOL-HDL RATIO NORM SEE BELOW Normal The [facility] Comment on above: Result Comment: 3.3 - 4.4 LOW RISK 4.4 - 7.1 AVERAGE RISK 7.1 - 11.0 MODERATE RISK >11.0 HIGH RISK Performed By: #### F T3, LIPID, CMP, TSH ####[facility] Cdgaikxvhf5699 [place] [address]Dr. Soniya Chi Cholesterol [Mass/Vol] 211 mg/dL Critically high <=200 [facility] Comment on above: Performed By: #### F T3, LIPID, CMP, TSH ####[facility] Nwpewjhequ[address] [place] [id number]. Soniya Chi Cholesterol in HDL [Mass/Vol] 109 mg/dL Critically high 40-60 The [facility] Comment on above: Performed By: #### F T3, LIPID, CMP, TSH ####[facility] Qiidwznvjq5390 [place] [address]Dr. Soniya Alon Cholesterol in LDL [Mass/Vol] 70.2 mg/dL Normal The [facility] Comment on above: Performed By: #### F T3, LIPID, CMP, TSH ####[facility] Ykcktulxit4105 [place] [address]Dr. Soniya Chi Cholesterol.total/ Cholesterol in HDL [Mass ratio] 1.9 {ratio} Normal The [facility] Comment on above: Performed By: #### F T3, LIPID, CMP, TSH ####[facility] Hvxnxmxlrd8789 [place] [address]DrKarolina Chi HDL NORMAL > or = 60 mg/dl - LOW CARDIOVASCULAR RISK <40 mg/dl - HIGH CARDIOVASCULAR RISK Normal [facility] Comment on above: Performed By: #### F T3, LIPID, CMP, TSH ####[facility] Gqieygdmgs1473 [place] [address]Dr. Soniya Chi LDL CALC NORMAL SEE BELOW Normal [facility] Comment on above: Result Comment: <100 mg/dl OPTIMAL 100 - 129 mg/dl NEAR OR ABOVE OPTIMAL 130 - 159 mg/dl BORDERLINE HIGH 160 - 189 mg/dl HIGH >190 mg/dl VERY HIGH Performed By: #### F T3, LIPID, CMP, TSH ####[facility] Uvaxcjnxwv0402 [place] [address]DrKarolina Chi Triglyceride [Mass/Vol] 159 mg/dL Critically high <=150 [facility] Comment on above: Performed By: #### F T3, LIPID, CMP, TSH ####[facility] Nousnuwuqi9806 [place] [address]Dr. Soniya Chi VLDL CALC 31.8 mg/dL Normal [facility] Comment on above: Performed By: #### F T3, LIPID, CMP, TSH ####[facility] Gqozstsfle2167 [place] [address]DrKarolina Chi PROF 14(COMP METB)on 022 Albumin [Mass/Vol] 3.9 g/dL Normal 3.4-5.0 [facility] Comment on above: Performed By: #### F T3, LIPID, CMP, TSH ####[facility] Srrebvotqo9155 [place] [address]DrKarolina Chi Albumin/Globulin [Mass ratio] 1.0 {ratio} Normal [facility] Comment on above: Performed By: #### F T3, LIPID, CMP, TSH ####[facility] Klfunxhdqd8208 [place] [address]Dr. Soniya Chi ALP [Catalytic activity/Vol] 76 U/L Normal 46-116 [facility] Comment on above: Performed By: #### F T3, LIPID, CMP, TSH ####[facility] Jxcijqacot9901 [place] [address]Dr. Soniya Chi ALT [Catalytic activity/Vol] 35 U/L Normal 14-59 [facility] Comment on above: Performed By: #### F T3, LIPID, CMP, TSH ####[facility] Offmnkndci9871 [place] [address]Dr. Soniya Chi Anion gap [Moles/Vol] 11.8 mmol/L Normal [facility] Comment on above: Performed By: #### F T3, LIPID, CMP, TSH ####[facility] Soplyvcdgy2659 [place] [address]Dr. Soniya Chi AST [Catalytic activity/Vol] 14 U/L Critically low 15-37 [facility] Comment on above: Performed By: #### F T3, LIPID, CMP, TSH ####[facility] Wvyvojvzyp5579 [place] [address]Dr. Soniya Chi Bilirubin [Mass/Vol] 0.6 mg/dL Normal 0.2-1.0 [facility] Comment on above: Performed By: #### F T3, LIPID, CMP, TSH ####[facility] Mqixgdznvn1445 [place] [address]Dr. Soniya Chi Calcium [Mass/Vol] 10.1 mg/dL Normal 8.5-10.1 [facility] Comment on above: Performed By: #### F T3, LIPID, CMP, TSH ####[facility] Mpoibcqpjd6414 [place] [address]Dr. Soniya Chi Chloride [Moles/Vol] 103 mmol/L Normal 98-107 [facility] Comment on above: Performed By: #### F T3, LIPID, CMP, TSH ####[facility] Cqaljpnizb6396 [place] [address]Dr. Soniya Chi CO2 [Moles/Vol] 29.8 mmol/L Normal 21.0-32.0 [facility] Comment on above: Performed By: #### F T3, LIPID, CMP, TSH ####[facility] Xlyvuidopo5256 [place] [address]Dr. Soniya Chi Creatinine [Mass/Vol] 1.17 mg/dL Critically high 0.55-1.02 [facility] Comment on above: Performed By: #### F T3, LIPID, CMP, TSH ####[facility] Kyllmkflof8987 [place] [address]Dr. Soniya Chi EGFR-AF JAPANESE 56 mL/min/1.73m2 Critically low >=60 [facility] Comment on above: Performed By: #### F T3, LIPID, CMP, TSH ####[facility] Qpwqmmgnbh6206 [place] [address]Dr. Soniya Chi EGFR-NON AF JAPANESE 46 mL/min/1.73m2 Critically low >=60 [facility] Comment on above: Performed By: #### F T3, LIPID, CMP, TSH ####[facility] Huouxcmzop8931 [place] [address]Dr. Soniya Chi Globulin (S) [Mass/Vol] 3.9 g/dL Normal [facility] Comment on above: Performed By: #### F T3, LIPID, CMP, TSH ####[facility] Ssjhqhjtcg6808 [place] [address]Dr. Soniya Chi Glucose [Mass/Vol] 94 mg/dL Normal 74-106 [facility] Comment on above: Performed By: #### F T3, LIPID, CMP, TSH ####[facility] Aogjyqhixc1308 [place] [address]Dr. Soniya Chi Potassium [Moles/Vol] 3.6 mmol/L Normal 3.5-5.1 [facility] Comment on above: Performed By: #### F T3, LIPID, CMP, TSH ####[facility] Aajbvkukmc2979 [place] [address]Dr. Soniya Chi Protein [Mass/Vol] 7.8 g/dL Normal 6.4-8.2 [facility] Comment on above: Performed By: #### F T3, LIPID, CMP, TSH ####[facility] Ukdrgbntgt3639 [place] [address]Dr. Soniya Chi Sodium [Moles/Vol] 141 mmol/L Normal 136-145 [facility] Comment on above: Performed By: #### F T3, LIPID, CMP, TSH ####[facility] Hnvkqlfaac7283 [place] [address]Dr. Soniya Chi Urea nitrogen [Mass/Vol] 27.0 mg/dL Critically high 7.0-18.0 [facility] Comment on above: Performed By: #### F T3, LIPID, CMP, TSH ####[facility] Pmuienijtv5190 [place] [address]Dr. Soniya Chi Urea nitrogen/Creatinin e [Mass ratio] 23.1 mg/mg Normal [facility] Comment on above: Performed By: #### F T3, LIPID, CMP, TSH ####[facility] Ztuiergqfh8368 [place] [address]Dr. Soniya Chi TSHon 04-23-2022 TSH 3.933 uIU/mL Critically high 0.358-3.740 [facility] Comment on above: Performed By: #### F T3, LIPID, CMP, TSH ####[facility] Fucbdxxyry3[address] [place], [place] [address]Dr. 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 Tosoblupdh46[address] [place], [place] [address]Dr. Soniya Chi Clarity (U) CLEAR Normal CLEAR [facility] Comment on above: Performed By: #### U PRASHANTH ICRO ####[facility] Gewbfblbto2[address] [place], [place] [address]Dr. Soniya Chi Color (U) LT. YELLOW Normal YELLOW [facility] Comment on above: Performed By: #### U ACSLUIS UMICRO ####[facility] Taadoisxfg[address]39[address] [place], [place] [address]Dr. Soniya Chi Glucose Ql (U) Negative Normal NEGATIVE [facility] Comment on above: Performed By: #### U ACSIND, UMICRO ####[facility] Yxjxjmoxdw5054 [place] [address]Dr. Soniya Chi Hemoglobin Ql (U) Negative Normal NEGATIVE The [facility] Comment on above: Performed By: #### U ACSIND, UMICRO ####[facility] Xljgujgytc9063 [place] [address]Dr. Soniya Chi Ketones Ql (U) Negative Normal NEGATIVE [facility] Comment on above: Performed By: #### U ACSIND, UMICRO ####[facility] Prxthyjrvb3712 [place] [address]Dr. Soniya Chi LEUKOCYTES TRACE Abnormal NEGATIVE [facility] Comment on above: Performed By: #### U ACSLUIS, UMICRO ####[facility] Rseyglwyjq5536 [place] [address]Dr. Soniya Chi Nitrite Ql (U) Negative Normal NEGATIVE [facility] Comment on above: Performed By: #### U ACSLUIS, UMICRO ####[facility] Oxibohqkcp24[address] [place], [place] [address]Dr. Soniya Chi pH (U) 5.5 [pH] Normal 5-9 [facility] Comment on above: Performed By: #### U ACSLUIS, UMICRO ####[facility] Pdvupjldgi8562 [place] [address]Dr. Soniya Chi SPEC GRAVITY 1.020 Normal 1.005-<=1.025 [facility] Comment on above: Performed By: #### U ACSIND, UMICRO ####[facility] Vxewvjjahj0490 [place] [address]Dr. Soniya Chi UA PROTEIN Negative Normal NEGATIVE/ TRACE [facility] Comment on above: Performed By: #### U ACSIND, UMICRO ####[facility] Zbdslsnrfw9987 [place] [address]Dr. Soniya Chi UR MICRO IND INDICATED Normal [facility] Comment on above: Performed By: #### U ACSIND, UMICRO ####[facility] Tklvydkufm8355 [place] [address]Dr. Soniya Chi Urobilinogen Qn (U) 0.2 {Casimiro'U}/dL Normal 0.2 - 1.0 The [facility] Comment on above: Performed By: #### U ACSLUIS, UMICRO ####[facility] Eqgsbjsrxt1295 [place] [address]Dr. Soniya Chi URINE MICROSCOPIC ONLYon BACTERIA NONE SEEN Normal NONE SEEN The [facility] Comment on above: Performed By: #### U ACSLUIS, UMICRO ####[facility] Afixasrjeo0316 [place] [address]Dr. Soniya Chi Bacteria identified Cx Nom (U) NOT INDICATED Normal [facility] Comment on above: Performed By: #### U ACSLUIS, UMICRO ####[facility] Cjgmcexfqh5814 [place] [address]Dr. Soniya Chi CAST NONE SEEN Normal NONE SEEN The [facility] Comment on above: Performed By: #### U ACSLUIS, UMICRO ####[facility] Kenghruymk7161 [place] [address]Dr. Soniya Chi Crystals LM Nom (Urine sed) NONE SEEN Normal NONE SEEN The [facility] Comment on above: Performed By: #### U ACSLUIS, UMICRO ####[facility] Ijhoeksmew4183 [place] [address]Dr. Soniya Chi Epithelial cells LM Ql (Urine sed) FEW Abnormal NONE SEEN /RARE The [facility] Comment on above: Performed By: #### U ACSLUIS, UMICRO ####[facility] Wiyhroctoo0960 [place] [address]Dr. Soniya Chi MUCOUS TRACE Abnormal NONE SEEN The [facility] Comment on above: Performed By: #### U ACSLUIS, UMICRO ####[facility] Sjsixamznn6285 [place] [address]Dr. Soniya Chi RBC NONE SEEN Abnormal 0-2 [facility] Comment on above: Performed By: #### U ACSLUIS, UMICRO ####[facility] Zzgowsnjkf6857 [place] [address]Dr. Soniya Chi WBC 0-2 Abnormal NONE SEEN The [facility] Comment on above: Performed By: #### U ACSIND, UMICRO ####[facility] Gsuvoptavr9164 [place] [address]Dr. Soniya Chi MG MAMM SCREEN 3D PANCHITO CADon 04-17-2022 MG MAMM SCREEN 3D PANCHITO CAD Normal [facility] CULTURE URINEon 04-06-2022 CULTURE URINE Normal [facility] Comment on above: Performed By: #### U RCX ####[facility] Armxeetxce8768 [place] [address]Dr. Soniya Chi ER URINE PROFILEon 2 Bilirubin Ql (U) Negative Normal NEGATIVE [facility] Comment on above: Performed By: #### U MICRO, ERUR ####[facility] Odyhuoziom5277[address] [place], [place] [address]Dr. Soniay Chi Clarity (U) SL CLOUDY Abnormal CLEAR [facility] Comment on above: Performed By: #### U MICRO, ERUR ####[facility] Ayulwgikml0776[address] [place], [place] [address]Dr. Soniya Chi Color (U) YELLOW Normal YELLOW The [facility] Comment on above: Performed By: #### U MICRO, ERUR ####[facility] Zxsweykjvo7687[address] [place], [place] [address]Dr. Soniya Chi ERUAHD A micrscopic examination will be performed if indicated. Normal [facility] Comment on above: Performed By: #### U MICRO, ERUR ####[facility] Tsjshjwpps[address] [place], [place] [address]Dr. Soniya Chi Glucose Ql (U) Negative Normal NEGATIVE [facility] Comment on above: Performed By: #### U MICRO, ERUR ####[facility] Yyahugfslb6339[address] [place], [place] [address]Dr. Soniya Chi Hemoglobin Ql (U) LARGE Abnormal NEGATIVE The [facility] Comment on above: Performed By: #### U MICRO, ERUR ####[facility] Evcusmcqng4225[address] [place], [place] [address]Dr. Soniya Chi Ketones Ql (U) Negative Normal NEGATIVE [facility] Comment on above: Performed By: #### U MICRO, ERUR ####[facility] Wejbptutcr5265 [place] [address]Dr. Soniya Chi LEUKOCYTES LARGE Abnormal NEGATIVE The [facility] Comment on above: Performed By: #### U MICRO, ERUR ####[facility] Igyjbcrvqf1392 [place] [address]Dr. Soniya Chi Nitrite Ql (U) Negative Normal NEGATIVE [facility] Comment on above: Performed By: #### U MICRO, ERUR ####[facility] Bjbdqfmlof017[address] [place], [place] [address]Dr. Soniya Chi pH (U) 6.5 [pH] Normal 5-9 [facility] Comment on above: Performed By: #### U MICRO, ERUR ####[facility] Yupjacnjfb7211[address] [place], [place] [address]Dr. Soniya Chi Protein (U) [Mass/Vol] 100 mg/dL Abnormal NEGATIVE/ TRACE The [facility] Comment on above: Performed By: #### U MICRO, ERUR ####[facility] Evuoscytlz6896[address] [place], [place] [address]Dr. Soniya Chi SPEC GRAVITY <=1.005 Abnormal 1.005-<=1.025 [facility] Comment on above: Performed By: #### U MICRO, ERUR ####[facility] Jezwazpuvc01[address] [place], [place] [address]Dr. Soniya Chi UR MICRO IND INDICATED Normal [facility] Comment on above: Performed By: #### U MICRO, ERUR ####[facility] Kdizouywdg7034[address] [place], [place] [address]Dr. Soniya Chi Urobilinogen Qn (U) 0.2 {Casimiro'U}/dL Normal 0.2 - 1.0 The [facility] Comment on above: Performed By: #### U MICRO, ERUR ####[facility] Fsxniratlu3093[address] [place], [place] [address]Dr. Soniya Chi URINE MICROSCOPIC ONLYon BACTERIA MODERATE Abnormal NONE SEEN The [facility] Comment on above: Performed By: #### U MICRO, ERUR ####[facility] Ehaggkahaq939[address] [place], [place] [address]Dr. Soniya Chi Bacteria identified Cx Nom (U) INDICATED Normal [facility] Comment on above: Performed By: #### U MICRO, ERUR ####[facility] Bqtupqjqwv544[address] [place], [place] [address]Dr. Soniya Chi CAST NONE SEEN Normal NONE SEEN [facility] Comment on above: Performed By: #### U MICRO, ERUR ####[facility] Qvaekuxoim8804 [place] [address]Dr. Soniya Chi Crystals LM Nom (Urine sed) NONE SEEN Normal NONE SEEN The [facility] Comment on above: Performed By: #### U MICRO, ERUR ####[facility] Xqxdeqchzh937[address] [place], [place] [address]Dr. Soniya Chi Epithelial cells LM Ql (Urine sed) FEW Abnormal NONE SEEN /RARE The [facility] Comment on above: Performed By: #### U MICRO, ERUR ####[facility] Izkxtzlacq8[address] [place], [place] [address]Dr. Soniya Chi MUCOUS NONE SEEN Normal NONE SEEN [facility] Comment on above: Performed By: #### U MICRO, ERUR ####[facility] Bblnyjsxun7151 [place] [address]Dr. Soniya Chi RBC 20-50 Abnormal 0-2 The [facility] Comment on above: Performed By: #### U MICRO, ERUR ####[facility] Wqevwaeztg0[address] [place], [place] [address]Dr. Soniya Chi WBC (U) [#/Vol] /uL Abnormal NONE SEEN [facility] Comment on above: Performed By: #### U MICRO, ERUR ####[facility] Rgsjidryza[address] [place], [place] [address]Dr. Soniya Chi Covid-19 PCR ([facility])on 08-0 SARS-CoV-2 (COVID-19) RNA DORIAN+probe Ql (Unsp spec) Not detected Normal NOT DETECTED The [facility] Comment on above: Result Comment: This test is not yet approved or cleared by the [place] FDA. When there are no FDA-approved or cleared tests available, and other criteria are met, FDA can make tests available under an emergency access mechanism called an Emergency Use Authorization (EUA). The EUA for this test is supported by the [place] of Health and Human Service's (HHS's) declaration [...] with SARS-CoV-2. Performed By: #### C VDTB ####[facility] Eoweqjostb2983 [place], [place] [address]Gg. Soniya Chi [facility]on 11-30 SARS-CoV-2 (COVID-19) RNA DORIAN+probe Ql (Unsp spec) Detected Critically abnormal NOT DETECTED The [facility] Comment on above: Result Comment: This test is not yet approved or cleared by the [place] FDA. When there are no FDA-approved or cleared tests available, and other criteria are met, FDA can make tests available under an emergency access mechanism called an Emergency Use Authorization (EUA). The EUA for this test is supported by the [employer] Of [employer] of Health and Human Service's declaration that [...] be used). Performed By: #### C VDTB ####[facility] Bmmmsppgjb8657 [place], [place] [address]If. Soniya Chi CT HEAD WO CONon 12-15-2021 CT HEAD WO CON Normal [facility] CBC AUTO DIFFon 12-12-2021 BASO # 0.0 103/ul Normal 0.0-0.1 [facility] Comment on above: Performed By: #### C BC ####[facility] Uptzferksz8664 [place] [id number]. Soniya Alon Basophils/100 WBC (Bld) 0.5 % Normal 0.2-2.0 [facility] Comment on above: Performed By: #### C BC ####[facility] Ylohdcioxd3899 [place] [address]Dr. Soniya Alon EO # 0.1 103/ul Normal 0.0-0.7 [facility] Comment on above: Performed By: #### C BC ####[facility] Agvoktroko1608 [place] [address]Dr. Soniya Chi Eosinophils/100 WBC (Bld) 1.6 % Normal 0.9-7.0 [facility] Comment on above: Performed By: #### C BC ####[facility] Dfruwbwoqg9383 [place] [address]Dr. Gypsyjuan Chi Erythrocyte distribution width (RBC) [Ratio] 12.2 % Normal 11.0-15.0 [facility] Comment on above: Performed By: #### C BC ####[facility] Conypfwaal[address] [place] [id number]. Soniya Chi Hematocrit (Bld) [Volume fraction] 38.7 % Normal 36.0-48.0 [facility] Comment on above: Performed By: #### C BC ####[facility] Bhinkiyous[address] [place] [id number]. Soniya Chi Hemoglobin (Bld) [Mass/Vol] 12.4 g/dL Normal 12.0-16.0 [facility] Comment on above: Performed By: #### C BC ####[facility] Wogmmhkrzg[address] [place] [id number]. Soniya hCi IG # 0.02 10e3/ul Normal 0.00-0.03 [facility] Comment on above: Performed By: #### C BC ####[facility] Xpjsawcoyl7172 [place], [place] [address]Vx. Soniya Chi IG % 0.3 % Normal 0.0-0.5 [facility] Comment on above: Performed By: #### C BC ####[facility] Mhbjkaouil[address] [place] [id number]. Soniya Chi LYMPH # 1.5 103/ul Normal 1.2-3.8 [facility] Comment on above: Performed By: #### C BC ####[facility] Avsktrkzop[address] [place] [id number]. Soniya Chi Lymphocytes/100 WBC (Bld) 20.6 % Normal 20.5-60.0 [facility] Comment on above: Performed By: #### C BC ####[facility] Ezvbmovwsq9174 [place] [id number]. Soniya Chi MANUAL DIFF REQ NO Normal The [facility] Comment on above: Performed By: #### C BC ####[facility] Flqhwngqou79[address] [place] [id number]. Soniya Chi MCH (RBC) [Entitic mass] 29.5 pg Normal 26.7-34.0 [facility] Comment on above: Performed By: #### C BC ####[facility] Bxyburemtj8235 [place] [id number]. Soniya hCi MCHC (RBC) [Mass/Vol] 32.0 g/dL Normal 29.9-35.2 [facility] Comment on above: Performed By: #### C BC ####[facility] Zoqibznecy38[address] [place] [id number]. Soniya Chi MCV (RBC) [Entitic vol] 91.9 fL Normal 81.0-99.0 [facility] Comment on above: Performed By: #### C BC ####[facility] Ocueeqmekm4172 [place] [id number]. Soniya Chi MONO # 0.5 103/ul Normal 0.3-0.8 [facility] Comment on above: Performed By: #### C BC ####[facility] Qsvlcexxev5864 [place] [id number]. Soniya Chi Monocytes/100 WBC (Bld) 7.4 % Normal 1.7-12.0 [facility] Comment on above: Performed By: #### C BC ####[facility] Kluurwlhby14[address] [place] [id number]. Soniya Chi NEUT # 5.1 103/ul Normal 1.4-6.5 [facility] Comment on above: Performed By: #### C BC ####[facility] Uvleserjvn7797 [place] [id number]. Soniya Chi Neutrophils/100 WBC (Bld) 69.6 % Normal 43.0-75.0 [facility] Comment on above: Performed By: #### C BC ####[facility] Oyxixflqhj[address] [place] [address]Dr. Soniya Chi Platelet mean volume (Bld) [Entitic vol] 9.7 fL Normal 9.5-13.5 [facility] Comment on above: Performed By: #### C BC ####[facility] Yhfmfrebhz7365 [place] [id number]. Soniya Chi PLT 248 103/ul Normal 150-450 [facility] Comment on above: Performed By: #### C BC ####[facility] Hvemtgbytg1071 [place] [id number]. Soniya Chi RBC 4.21 106/ul Normal 4.20-5.40 [facility] Comment on above: Performed By: #### C BC ####[facility] Mwkvgfqwrc9624 [place] [id number]. Soniya Chi WBC 7.3 103/ul Normal 4.0-11.0 [facility] Comment on above: Performed By: #### C BC ####[facility] Pyzpnflhnt8548 [place] [address]Dr. Soniya Alon PROF 14(COMP METB)on 022 Albumin [Mass/Vol] 3.8 g/dL Normal 3.4-5.0 [facility] Comment on above: Performed By: #### C MP ####[facility] Rccfnmisef5120 [place] [id number]. Soniya Chi Albumin/Globulin [Mass ratio] 1.0 {ratio} Normal [facility] Comment on above: Performed By: #### C MP ####[facility] Wtgrpavciv8407 [place] [id number]. Soniya Chi ALP [Catalytic activity/Vol] 71 U/L Normal 46-116 [facility] Comment on above: Performed By: #### C MP ####[facility] Sgzxynowxd2872 [place] [address]Dr. Soniya Chi ALT [Catalytic activity/Vol] 21 U/L Normal 14-59 [facility] Comment on above: Performed By: #### C MP ####[facility] Ryftqlzmbr3301 [place] [address]Dr. Soniya Chi Anion gap [Moles/Vol] 12.4 mmol/L Normal [facility] Comment on above: Performed By: #### C MP ####[facility] [address]ps[address] [place], [place] [address]Dr. Soniya Chi AST [Catalytic activity/Vol] 12 U/L Critically low 15-37 [facility] Comment on above: Performed By: #### C MP ####[facility] [address] [place], [place] [address]Dr. Soniya Chi Bilirubin [Mass/Vol] 0.9 mg/dL Normal 0.2-1.0 [facility] Comment on above: Performed By: #### C MP ####[facility] [address]ugp[address] [place], [place] [address]Dr. Soniya Alon Calcium [Mass/Vol] 9.6 mg/dL Normal 8.5-10.1 [facility] Comment on above: Performed By: #### C MP ####[facility] Nhfklquwds[address] [place], [place] [address]Dr. Soniya Alon Chloride [Moles/Vol] 103 mmol/L Normal 98-107 [facility] Comment on above: Performed By: #### C MP ####[facility] Bckyyvcqix[address] [place], [place] [address]Dr. Soniya Chi CO2 [Moles/Vol] 26.7 mmol/L Normal 21.0-32.0 The [facility] Comment on above: Performed By: #### C MP ####[facility] Xixuuqykwe1867 [place] [address]Dr. Soniya Chi Creatinine [Mass/Vol] 1.30 mg/dL Critically high 0.55-1.02 [facility] Comment on above: Performed By: #### C MP ####[facility] Xosycsipkb3613 [place] [address]Dr. Soniya Chi EGFR-AF JAPANESE 50 mL/min/1.73m2 Critically low >=60 [facility] Comment on above: Performed By: #### C MP ####[facility] Lvwwxlpimi9710 [place] [address]Dr. Soniya Chi EGFR-NON AF JAPANESE 41 mL/min/1.73m2 Critically low >=60 [facility] Comment on above: Performed By: #### C MP ####[facility] Eiuumxmkxg[address] [place], [place] [address]Dr. Soniya Alon Globulin (S) [Mass/Vol] 3.7 g/dL Normal [facility] Comment on above: Performed By: #### C MP ####[facility] Hhmmktjlhk7268 [place] [address]Dr. Soniya Alon Glucose [Mass/Vol] 104 mg/dL Normal 74-106 [facility] Comment on above: Performed By: #### C MP ####[facility] Qwpesqxtxn7330 [place] [address]Dr. Soniya Alon Potassium [Moles/Vol] 4.1 mmol/L Normal 3.5-5.1 [facility] Comment on above: Performed By: #### C MP ####[facility] [address]xkvvcmlzi[address] [place], [place] [address]Dr. Soniya Chi Protein [Mass/Vol] 7.5 g/dL Normal 6.4-8.2 [facility] Comment on above: Performed By: #### C MP ####[facility] Oklfehncsp5976 [place] [phone]. Soniya Chi Sodium [Moles/Vol] 138 mmol/L Normal 136-145 [facility] Comment on above: Performed By: #### C MP ####[facility] Ildectkncq6194 [place] [address]Dr. Soniya Chi Urea nitrogen [Mass/Vol] 19.0 mg/dL Critically high 7.0-18.0 [facility] Comment on above: Performed By: #### C MP ####[facility] Vhzmmosztz8304 [place] [address]Dr. Soniya Chi Urea nitrogen/Creatinin e [Mass ratio] 14.6 mg/mg Normal [facility] Comment on above: Performed By: #### C MP ####[facility] Hufmowj[address] [place], [place] [address]Dr. Soniya Chi GLUCOSE BLOODon 11-29-2021 Glucose [Mass/Vol] 106 mg/dL Normal 74-106 [facility] Comment on above: Performed By: #### G COLLEEN, LIPID ####[facility] Qjdqcnoawt[address] [place], [place] [address]Dr. Soniya Chi LIPID PROFILEon 11-29-2021 CHOL-HDL RATIO NORM SEE BELOW Normal [facility] Comment on above: Result Comment: 3.3 - 4.4 LOW RISK 4.4 - 7.1 AVERAGE RISK 7.1 - 11.0 MODERATE RISK >11.0 HIGH RISK Performed By: #### G COLLEEN, LIPID ####[facility] Umeznuxcnt[address] [place], [place] [address]Dr. Soniya Chi Cholesterol [Mass/Vol] 230 mg/dL Critically high <=200 [facility] Comment on above: Performed By: #### G COLLEEN, LIPID ####[facility] [address] [place], [place] [address]Dr. Soniya Chi Cholesterol in HDL [Mass/Vol] 66 mg/dL Critically high 40-60 [facility] Comment on above: Performed By: #### G COLLEEN, LIPID ####[facility] Hxdchiy[address] [place], [place] [address]Dr. Soniya Chi Cholesterol in LDL [Mass/Vol] 113.2 mg/dL Normal [facility] Comment on above: Performed By: #### G COLLEEN, LIPID ####[facility] Ssaunghfmx9[address] [place] [address]Dr. Soniya Chi Cholesterol.total/ Cholesterol in HDL [Mass ratio] 3.5 {ratio} Normal [facility] Comment on above: Performed By: #### G COLLEEN, LIPID ####[facility] [address]laofvdpye0[address] [place] [address]Dr. Soniya Chi HDL NORMAL > or = 60 mg/dl - LOW CARDIOVASCULAR RISK <40 mg/dl - HIGH CARDIOVASCULAR RISK Normal [facility] Comment on above: Performed By: #### G COLLEEN, LIPID ####[facility] Pbe[address]ighir1144 [place] [address]Dr. Soniya Chi LDL CALC NORMAL SEE BELOW Normal [facility] Comment on above: Result Comment: <100 mg/dl OPTIMAL 100 - 129 mg/dl NEAR OR ABOVE OPTIMAL 130 - 159 mg/dl BORDERLINE HIGH 160 - 189 mg/dl HIGH >190 mg/dl VERY HIGH Performed By: #### G COLLEEN, LIPID ####[facility] [address]oyvkhxglp[address] [place] [id number]. Soniya Chi Triglyceride [Mass/Vol] 254 mg/dL Critically high <=150 [facility] Comment on above: Performed By: #### G COLLEEN, LIPID ####[facility] Clctmssbrr[address] [place] [id number]. Soniya Chi VLDL CALC 50.8 mg/dL Normal [facility] Comment on above: Performed By: #### G COLLEEN, LIPID ####[facility] Gvsuwsgifo1343 [place] [id number]. Soniya Chi Vital Signs Date Time Vital Sign Value Performing Clinician Facility 12-10-2023 15:25-0400 Blood Pressure Location Milo GARCIA [facility] 12-10-2023 15:25-0400 Diastolic blood pressure 80 mm[Hg] Milo GARCIA [facility] 12-10-2023 15:25-0400 Heart rate 70 /min Milo NILL [facility] 12-10-2023 15:25-0400 Respiratory rate 16 /min Milo NILL [facility] 12-10-2023 15:25-0400 Systolic blood pressure 138 mm[Hg] Milo NILL [facility] 10-06-2023 14:27-0400 Body temperature 98.06 [degF] Mhd Al-Marrawi [facility] 10-06-2023 14:27-0400 Diastolic blood pressure 82 mm[Hg] Mhd Al-Marrawi [facility] [place] [facility] 10-06-2023 14:27-0400 Heart rate 64 /min Mhd Al-Marrawi [facility] [place] [facility] 10-06-2023 14:27-0400 Mean blood pressure 101 mm[Hg] Mhd Al-Marrawi [facility] [place] [facility] 10-06-2023 14:27-0400 Respiratory rate 16 /min Mhd Al-Marrawi [facility] [place] [facility] 10-06-2023 14:27-0400 SaO2% (BldA) [Mass fraction] 97 % Mhd Al-Marrawi [facility] [place] [facility] 10-06-2023 14:27-0400 Systolic blood pressure 140 mm[Hg] Mhd Al-Marrawi [facility] [place] [facility] 09-03-2023 14:12-0400 Blood Pressure Location Milo NILL [facility] 09-03-2023 14:12-0400 Diastolic blood pressure 76 mm[Hg] Milo NILL [facility] 09-03-2023 14:12-0400 Heart rate 72 /min Milo GARCIA [facility] [place] 09-03-2023 14:12-0400 Respiratory rate 16 /min Milo GARCIA [facility] [place] 09-03-2023 14:12-0400 Systolic blood pressure 120 mm[Hg] Milo GARCIA [facility] [place] 09-01-2023 09:51-0400 Diastolic blood pressure 79 mm[Hg] Mhd Al-Marrawi [facility] [place] [facility] 09-01-2023 09:51-0400 Heart rate 61 /min Mhd Al-Marrawi [facility] [place] [facility] 09-01-2023 09:51-0400 Mean blood pressure 93 mm[Hg] Mhd Al-Marrawi [facility] [place] [facility] 09-01-2023 09:51-0400 Respiratory rate 16 /min Mhd Al-Marrawi [facility] [place] [facility] 09-01-2023 09:51-0400 SaO2% (BldA) [Mass fraction] 97 % Mhd Al-Marrawi [facility] [place] [facility] 09-01-2023 09:51-0400 Systolic blood pressure 121 mm[Hg] Mhd Al-Marrawi [facility] [place] [facility] 10-09-2022 07:06-0400 Diastolic blood pressure 89 mm[Hg] Zaira Saravia DO Work Phone: [facility] [employer] 10-09-2022 07:06-0400 Heart rate 46 /min Zaira Saravia DO Work Phone: [facility] [employer] 10-09-2022 07:06-0400 Respiratory rate 29 /min Zaira Saravia DO Work Phone: [facility] 10-09-2022 07:06-0400 SaO2% (BldA) [Mass fraction] 99 % Zaira Saravia DO Work Phone: [facility] [email or web address] 10-09-2022 07:06-0400 Systolic blood pressure 112 mm[Hg] Zaira Saravia DO Work Phone: [facility] [email or web address] 10-08-2022 13:25-0400 Body temperature 97.11 [degF] Zaira Saravia DO Work Phone: [facility] [email or web address] 10-08-2022 13:21-0400 Body height 165.1 cm Zaira Saravia DO Work Phone: [facility] [email or web address] 10-08-2022 13:21-0400 Body mass index (BMI) [Ratio] 29.95 kg/m2 Zaira Saravia DO Work Phone: [facility] [email or web address] 10-08-2022 13:21-0400 Body weight 81.65 kg Zaira Saravia DO Work Phone: [facility] [email or web address] 06-18-2022 14:39-0500 Body temperature 97.3 [degF] MD Melva Escobedo Work Phone: [facility] 06-18-2022 14:39-0500 Diastolic blood pressure 71 mm[Hg] MD Melva Escobedo Work Phone: [facility] 06-18-2022 14:39-0500 Heart rate 63 /min MD Melva Escobedo Work Phone: [facility] 06-18-2022 14:39-0500 Respiratory rate 16 /min MD Melva Escobedo Work Phone: [facility] 06-18-2022 14:39-0500 SaO2% (BldA) [Mass fraction] 95 % MD Melva Escobedo Work Phone: [facility] 06-18-2022 14:39-0500 Systolic blood pressure 109 mm[Hg] MD Melva Escobedo Work Phone: [facility] 06-17-2022 09:00-0500 Body weight 70.76 kg MD Melva Escobedo Work Phone: [facility] 06-12-2022 [id number] Body height 154.94 cm MD Melva Escobedo Work Phone: [facility] Encounters Encounter Date Encounter Type Care Provider Facility Start: 06-15-2024 ambulatory Keya L Ezequiel Facility: [facility] [place] Start: 02-24-2024 ambulatory Keya L Ezequiel Facility: [facility] Start: 12-22-2023 ambulatory Milo R NILL Facility : [facility] Start: 12-16-2023 End: 12-16-2023 ambulatory Keya L Ezequiel Facility:[facility] Start: 12-16-2023 ambulatory Keya Ezequiel Facility: [facility] [place] Start: 12-10-2023 End: 12-10-2023 ambulatory Milo R NILL Facility: [facility] Start: 12-10-2023 End: 12-10-2023 [facility] Start: 11-18-2023 ambulatory Marty Brewer acility:[facility] Start: 11-12-2023 End: 11-12-2023 ambulatory FABBY HERMAN Not Available Start: 11-04-2023 End: 11-04-2023 ambulatory Keya L Ezequiel Facility:[facility] [place] Start: 10-15-2023 End: 10-15-2023 ambulatory [facility] Start: 10-15-2023 End: 10-15-2023 Encounter for other preprocedural examination [facility] Start: 10-06-2023 End: 10-06-2023 ambulatory Mhd Yaser Al-Marrawi Facility:[facility] Start: 10-06-2023 End: 10-06-2023 Patient encounter procedure Mhd Yaser Al-Marrawi [facility] [place] [facility] Start: 09-10-2023 ambulatory Keya Ezequiel Facility:[facility] Start: 09-03-2023 End: 09-03-2023 ambulatory Milo R NILL Facility: [facility] Start: 09-03-2023 End: 09-03-2023 Patient encounter procedure Milo R NILL [facility] [place] Start: 09-02-2023 ambulatory Keya Ezequiel Facility:[facility] [place] Start: 09-01-2023 End: 09-01-2023 ambulatory Mhd Yaser Al-Marrawi Facility:[facility] Start: 09-01-2023 End: 09-01-2023 Patient encounter procedure d ser [facility] Start: 08-28-2023 End: 08-28-2023 ambulatory JOSEPH DOMINGUEZ Not Available Start: 08-05-2023 End: 08-05-2023 ambulatory Keya L Ezequiel Facility:[facility] Start: 07-28-2023 End: 07-28-2023 ambulatory Kayley V West Facility:[facility] Start: 06-24-2023 End: 06-24-2023 [facility] Start: 06-11-2023 End: 06-11-2023 Lab Drop off Keya L Ezequiel [facility] [place] [facility] Start: 06-11-2023 End: 06-11-2023 ambulatory Keya L Ezequiel Facility:[facility] Start: 04-29-2023 End: 04-29-2023 ambulatory JOSEPH DOMINGUEZ Not Available Start: 02-21-2023 End: 02-21-2023 ambulatory [facility] Start: 02-04-2023 End: 02-04-2023 [facility] Start: 10-09-2022 End: 10-13-2022 Evaluation and management of inpatient Rasheedacarlo Lundberg Facility:[facility] Start: 10-08-2022 End: 10-09-2022 Emergency department patient visit [facility] Start: 10-08-2022 End: 10-09-2022 Emergency department patient visit Zaira Saravia DO Work Phone: [facility] ED Comment on above: Altered mental statu s, unspecified altered mental status type (Primary Dx); Hypernatremia; Urinary tract infection without hematuria, site unspecified Start: 10-08-2022 End: 10-08-2022 [facility] Start: 10-08-2022 End: 10-08-2022 Subsequent hospital visit by physician Jamil Lundberg MD Work Phone: [facility] Start: 10-05-2022 End: 10-06-2022 ambulatory NHAN JUNE [facility] Start: 10-04-2022 End: 10-05-2022 ambulatory JAMIL [facility] Start: 10-04-2022 End: 10-04-2022 Subsequent hospital visit by physician Jamil Lundberg MD Work Phone: [facility] Start: 10-03-2022 End: 10-03-2022 ambulatory [facility] Start: 10-02-2022 End: 10-02-2022 Subsequent hospital visit by physician Jamil Lundberg MD Work Phone: [facility] Start: 09-28-2022 End: 09-29-[address] MELVA ESCOBEDO . Facility:[facility] Start: 09-16-2022 End: 09-17-[address] MELVA ESCOBEDO . Facility:[facility] Start: 08-27-2022 End: 08-28-2022 ambulatory [facility] Start: 08-27-2022 End: 08-27-2022 Subsequent hospital visit by physician Jamil Lundberg MD Work Phone: [facility] Start: 08-25-2022 End: 08-26-2022 ambulatory [facility] Start: 08-25-2022 End: 08-25-2022 Subsequent hospital visit by physician Jamil Lundberg MD Work Phone: [facility] Start: 08-16-2022 End: 08-22-2022 Evaluation and management of inpatient DR MELVA ESCOBEDO . Facility:[facility] Start: 08-15-2022 End: 08-15-[address] MELVA ESCOBEDO . Facility:[facility] Start: 08-13-2022 End: 08-14-[address] MELVA ESCOBEDO . Facility:[facility] Start: 05-30-2022 End: 06-18-2022 Evaluation and management of inpatient MD Melva Escobedo Work Phone: [facility] [facility] Work Phone: Start: 05-28-2022 End: 05-30-2022 Evaluation [...] total Zaira Fineis DO Work Phone: Start: 10-09-2022 Basic metabolic [...] Ct head/brain w/o co ntrast material Zaira Fineis DO Work Phone: Start: 10-08-2022 GLUCOSE, WHOLE BLOOD Ch erick Saravia DO Work Phone: Start: 10-08-2022 Comprehensive metabo lic panel Zaira Fineis DO Work Phone: Start: 10-08-2022 Ecg routine ecg w/le ast 12 lds i&r only Zaira Fineis DO Work Phone: Start: 10-08-2022 Basic metabolic pane l calcium total Melva Morales CASER - DENTAL SURGERY DOCTOR Work Phone: Start: 10-04-2022 Comprehensive metabo lic panel Jamil Lundberg MD Work Phone: Start: 10-04-2022 Lipid panel Jamil pierce MD Work Phone: Start: 10-02-2022 Assay of thyroid stimulating hormone tsh Jamil Lundberg MD Work Phone: Start: 08-27-2022 Basic metabolic pane l calcium total Mee Hoffmann CASER - DENTAL SURGERY DOCTOR Work Phone: Start: 08-25-2022 Urnls dip stick/tabl [...] Escobedo Work Phone: Start: 06-02-2019 Cataract (disorder) Deb Neumann Start: 01-31-2019 Colonoscopy Keya montemayor Start: 04-28-2017 Cataract extraction and insertion of intraocular lens Keya Nieves Comment on above: CATARACT EXTRACTION WITH INTRAOCULAR LENS IMPLANTATION RIGHT EYE Biopsy of breast Milo COATES [facility] Tonsillectomy and adenoidectomy Keya Nieves Plan of Treatment Date Care Activity Detail Author Start: 12-16-2031 DTaP/Tdap/Td vaccine (2 - Tdap) DTaP/Tdap/Td vaccine (2 - Tdap) [facility] Start: 10-05-2027 Lipid panel Lipids [facility] [employer] Start: 12-31-2022 Influenza vaccination Flu vacc ine (Season Ended) [facility] [employer] Start: 08-25-2022 Annual Wellness Visi t (AWV) Annual Wellness Visit (AWV) [facility] Start: 06-18-2022 [facility] Start: 06-15-2022 [facility] Start: 06-15-2022 Referral to customer supply coordinator [facility] Start: 05-30-2022 Hospital admission [facility] Start: 12-31-2021 Influenza vaccination Flu vaccine (# 1) [facility] Start: 02-16-2021 Pneumococcal 65+ yea rs Vaccine (2 - PPSV23 if available, else PCV20) Pneumococcal 65+ years Vaccine (2 - PPSV23 if available, else PCV20) [facility] Start: 2009 Screening for osteoporosis DEX A (modify frequency per FRAX score) [facility] Start: 2004 Screening for malign ant neoplasm of breast Breast cancer screen [facility] Start: 2004 Shingles vaccine (1 of 2) Stauffer gles vaccine (1 of 2) [facility] Start: 11-28-1999 Screening for malign ant neoplasm of colon [facility] Start: 1989 Diabetes screen Diabetes screen [facility] Start: 1973 DTaP/Tdap/Td vaccine (1 - Tdap) DTaP/Tdap/Td vaccine (1 - Tdap) [facility] Start: 1972 Hepatitis C screening Hepatitis C sc reen [facility] Start: 1966 Depression Screen Depression Screen [facility] Start: 05-29-1955 COVID-19 Vaccine (#1) COVID-19 Vacci ne (#1) [facility] End: 10-11-2022 Basic metabolic 2000 panel - Serum or Plasma Basic Metabolic Panel Lab STAT Every 2 Hours (Lab) for 35 Occurrences starting 10/08/2022 until 10/11/2022, 5 completed [facility] [email or web address] Work Phone: Comment on above: Every 2 Hours (Lab) for 35 Occurrences starting 10/08/2022 until 10/11/2022, 5 completed End: 08-25-2022 Culture, Urine Grasshoppers! [facility] Work Phone: Comment on above: Once for 1 Occurrenc es starting 08/25/2022 until 08/25/2022 End: 10-08-2022 Culture, Urine [facility] Work Phone: Comment on above: Once for 1 Occurrenc es starting 10/08/2022 until 10/08/2022 Patient Education Schizophrenia (DC) [facility] [facility] DC Instructions [facility] Work Phone: Patient referral [facility] Work Phone: End: 10-02-2022 T3 [employer] Work Phone: Comment on above: Once for 1 Occurrenc es starting 10/02/2022 until 10/02/2022 End: 10-02-2022 T4 [employer] Work Phone: Comment on above: Once for 1 Occurrenc es starting 10/02/2022 until 10/02/2022 End: 10-02-2022 Thyroxine (T4) free [Mass/volume] in Serum or Plasma [employer] Work Phone: Comment on above: Once for 1 Occurrenc es starting 10/02/2022 until 10/02/2022 End: 10-02-2022 Triiodothyronine (T3) Free [Mass/volume] in Serum or Plasma [employer] Work Phone: Comment on above: Once for 1 Occurrenc es starting 10/02/2022 until 10/02/2022 [facility] Immunizations Immunization Date Immunization Notes Care Provider Mahogany gray 03-09-2022 SARS-CoV-2 (COVID-19 ) mRNAMUL.[id number] Keya Ezequiel [facility] Comment on above: Result Comment: 2022: [id number] 02-14-2022 influenza virus vaccine, unspecified formulation Keya Ezequiel [facility] 03-29-2021 SARS-CoV-2 (COVID-19 ) mRNA-1273 vaccine Keya Ezequile [facility] Comment on above: Result Comment: 2022: [id number] 01-27-2021 influenza virus vaccine, unspecified formulation Keya Ezequiel [facility] 08-23-2020 SARS-CoV-2 (COVID-19 ) mRNA-1273 vaccine Keya Ezequiel [facility] 07-27-2020 SARS-CoV-2 (COVID-19 ) mRNA-1273 vaccine Keya Ezequiel [facility] 02-17-2020 pneumococcal conjuga te vaccine, 13 valent Keya Ezequiel [facility] 02-20-2019 influenza virus vaccine, unspecified formulation Keya Ezequiel [facility] 03-31-2018 influenza virus vaccine, unspecified formulation Keya Ezequiel [facility] Payers Date Payer Category Payer Medicare [id number] 2022 Private Health Insurance 2022 Self-pay 1959 Private Health Insurance [id number] 1955 Unknown [id number] 2..840.1.638455.3.579.2.59 1954 Unknown [id number] .840.1.553129.3.579.2.59 1954 Unknown [id number] .840.1.880913.3.579.2.59 1954 Unknown [id number] 2..840.1.117415.3.579.2.59 1954 Unknown [id number] 2.16.840.1.232900.3.579.2.59 1954 Unknown [id number] 2.16.840.1.990795.3.579.2.593 1954 Unknown [id number] 2.16.840.1.874148.3.579.2.593 1954 Unknown [id number] 2.16.840.1.711058.3.579.2.593 1954 Unknown [id number] 2.16.840.1.876927.3.579.2.593 1954 Unknown [id number] 2.16.840.1.076326.3.579.2.593 1954 Unknown [id number] 2.16.840.1.478881.3.579.2.593 1954 Unknown [id number] 2.16.840.1.413994.3.579.2.593 1954 Unknown [id number] 2.16.840.1.566834.3.579.2.593 1954 Unknown [id number] 2.16.840.1.011018.3.579.2.593 1954 Unknown [id number] 2.16.840.1.054443.3.579.2.593 1954 Unknown [id number] 2.16.840.1.678889.3.579.2.173 1954 Unknown [id number] 2.16.840.1.400118.3.579.2.173 1954 Unknown [id number] 2.16.840.1.650311.3.579.2.173 1954 Unknown [id number] 2.16.840.1.080212.3.579.2.196 1954 Unknown [id number] 2.16.840.1.464758.3.579.2.1259 1954 Unknown [id number] 2.16.840.1.073399.3.579.2.1259 1954 Unknown [id number] 2.16.840.1.248323.3.579.2.1259 1954 Unknown [id number] 2.16.840.1.332182.3.579.2.72 1954 Unknown [id number] 2.16.840.1.196389.3.579.2. 1954 Unknown [id number] 2.16.840.1.777522.3.579.2. 1954 Unknown [id number] 2.16.840.1.207838.3.579.2. 1954 Unknown [id number] 2.16.840.1.502847.3.579.2. 1954 Unknown [id number] 2.16.840.1.904330.3.579.2 1954 Unknown [id number] 2.16.840.1.653517.3.579.2. 1954 Unknown [id number] 2.840.1.285828.3.579.2 1954 Unknown [id number] 2.16.840.1.985879.3.579.2. 1954 Unknown [id number] 2.16.840.1.059856.3.579.2 1954 Unknown [id number] 2.16.840.1.947997.3.579.2. 1954 Unknown [id number] 2.16840.1.954313.3.579.2. 1954 Unknown [id number] 2.16.840.1.180761.3.579.2. 1954 Unknown [id number] 2.16.840.1.682439.3.579.2 1954 Unknown [id number] 2.16.840.1.441560.3.579.2 Unknown Mamou /BS [id number] Unknown [facility] [id number] Unknown [id number] 2.16.840.1.383718.3.579.2.531 Unknown [id number] 2.16.840.1.643601.3.579.2.531 Social History Date Type Detail Facility Start: 06-15-2022 End: 12-10-2023 Tobacco smoking status NYIS Never smoked tobacco (finding) [facility] Comment on above: Never a smoker Start: 1955 Sex Assigned At Female F [facility] Tobacco smoking status [facility] Tobacco smoking consumption unknown [facility] [employer] Phone: Start: 1955 Sex Assigned At Not on file [facility] [employer] Phone: Tobacco smoking status Never [facility] [place] Comment on above: Never a smoker Sex Assigned At Female [facility] Goals Date Patient Goal Desired Activity /State Functional Status Date Assessment Result Facility 12-10-2023 Functional Status N/A [facility] [place] 09-03-2023 Functional Status N/A General H[facility] 06-18-2022 Functional status Patient is Pro gressing Toward Baseline [facility] Work Phone: 05-30-2022 Functional status Disability Sta tus Patient at Baseline [facility] Work Phone: Mental Status Date Assessment Result Facility 06-18-2022 Cognitive function Cognitive Sta tus Patient is Progressing Toward Baseline [facility] Work Phone: Clinical Notes 05-31-2022 to 10-15-2023 Note Date & Type Note Facility 10-15-2023 Note [facility] Card[facility] Clinic Note Chief Complaint: Patient here for 1 year follow up PAF, hypertension, and chest pain. She also needs clearance for breast surgery. Had labs and EKG last week. Surgery scheduled for next Friday at [facility] with Dr. Nill. states she is no longer on Eliquis because of a few falls last year. She denies chest pain, SOB, lightheadedness/syncope. Says palpitations are much less frequent than they used to be. HPI: Marley is in the clinic today to follow up from her recent hospitalization at [facility]. She states that she feels palpitations and/or irregular heartbeats. Her home nurse that came last week stated that she thought Marley's ankles were a bit swollen. No excessive fatigue, chest pain, ABDALLA, or SOB. She was recently admitted to [facility] for AMS, hypothermia, hypotension, hypothyroidism, and [...] , Rfl: ergocalciferol (Vitamin D-2) 1.25 MG (01112 Units) capsule, TAKE 1 CAPSULE BY MOUTH [...] Mild mitral regurgitation (more content not included)... [facility] 10-09-2023 Note [id number] [facility] 10-06-2023 Hospital Discharge instructions Patient Education 10/06/2023 [...] Follow these instructions at home: Medicines Take vdyy-wjm-dpzlavz and prescription medicines only as told by [...] to keep your urine pale yellow. ?Take juzt-nuq-yxkzdsl or prescription medicines. ?Eat foods that are [...] and water are not available, use hand glove maker. ?Change your dressing as told by your [...] provider. Document Revised: 07/28/2022 Document Reviewed: 07/28/2022 [employer] Patient Education 2022 [employer]. 10/06/2023 14:45:52 Lumpectomy Lumpectomy A lumpectomy, sometimes [...] including vitamins, herbs, eye drops, creams, and vknl-dqg-dvuszhj medicines. Any problems you or family members [...] health care provider tells you to. Taking qvhc-ifi-vmklgrb medicines, vitamins, herbs, and supplements. Surgery safety [...] is safe. Where to find more information [place] [employer]: cancer.org National Cancer [place]: cancer.gov Summary A lumpectomy, sometimes called a [...] provider. Document Revised: 08/12/2022 Document Reviewed: 07/28/2022 [employer] Patient Education 2022 [employer]. [facility] 09-03-2023 Note Chief Complaint consultation to [...] right breast invasive ductal carcinoma with DCIS, ER/MT +, HER2 negative 6 mm spiculated lesion [...] PRN Fosamax 70 (more content not included)... [facility] Comment on above: Result Comment: [...] Follow these instructions at home: Medicines Take ofsv-sqf-wntxeru and prescription medicines only as told by [...] to keep your urine pale yellow. ?Take rxmu-gqn-diaanon or prescription medicines. ?Eat foods that are [...] and water are not available, use hand glove maker. ?Change your dressing as told by your [...] provider. Document Revised: 07/28/2022 Document Reviewed: 07/28/2022 [employer] Patient Education 2022 [employer]. 09/01/2023 10:41:03 Lumpectomy Lumpectomy A lumpectomy, sometimes [...] including vitamins, herbs, eye drops, creams, and syaf-msy-fcavbpp medicines. Any problems you or family members [...] health care provider tells you to. Taking jkxr-hvf-mzftwbg medicines, vitamins, herbs, and supplements. Surgery safety [...] is safe. Where to find more information [place] [employer]: cancer.org National Cancer [place]: cancer.gov Summary A lumpectomy, sometimes called a [...] provider. Document Revised: 08/12/2022 Document Reviewed: 07/28/2022 [employer] Patient Education 2022 [employer]. Follow Up Care 08/14/2023 17:20:44 With:Thien ROPER, JULIÁN Pelletier, ONC Address: When: Unknown Comments:Referral to surgery for right breast IDC.Diagnostic US and mammogram of the left breast for new breast inversion.21 gene Oncotype D score from the biopsy of the right breast if enough tissue is available.RTC in 3 weeks for results of above. [facility] 10-13-2022 Note Admission Informatio n Patient: Marley Osborn : 1955 Date of Admission: 10/09/2022 08:56:04 Date of Discharge: 10/13/2022 16:45:00 Code Status: [place] DNR - CC Comfort Care PCP: Tamika [...] the phone. Patient is currently residing at [facility]. Admitted to ICU. Consult to nephrology for hyponatremia management. Patient CODE STATUS changed to DNR CC. Transferred to general medical floor on 10/10. Discussed plan of care moving forward with , and options for discharge, after discussion with palliative care opted for hospice. Patient [facility], closer to patient's home. Patient was [...] (OCTOBER 10) 2 (more content not included)... [facility] 10-10-2022 Note Chief Complaint Unresponsiveness Reason for Consultation Transfer from [facility] History of Present Illness This is a 66-year-old female with a history of longstanding schizophrenia who also has a history of paroxysmal atrial fibrillation and is on Eliquis 5 mg twice daily who has had multiple psychiatric hospitalizations over the last year according to the because of schizophrenia. She has been at [facility] as well as at [facility]. She has apparently been at her current [...] quite lethargic and was transferred to the [facility] she was found to be hypernatremic as well as hypothermic. She had a sodium of 152 and she was transferred over to [facility]. At this time the reports that she [...] Dose: 10/10/22 13:26:00 EDT, Dispense From Location: [address], 10/10/22 13:26:00 EDT Creatine Phosphokinase Electroencephalogram [...] PRN Klor-Con M2 (more content not included)... [facility] 10-09-2022 Note Reason for Consultat ion Hypernatremia History of Present Illness This is a 66-year-old female, who was initially at [facility] and then sent to [facility] ER on 10/08/22. She has a past medical history of catatonic schizophrenia, chronic kidney disease stage unknown at this time, anemia, hypothyroid, DVT hypertension, coronary artery disease, A-fib on Eliquis, osteoporosis, with frequent admissions due to worsening confusion and psychosis in a catatonic state. She was transferred from [facility] this morning after presenting to their emergency department with chief complaint of altered mental status and hypernatremia. All medical history obtained from extensive transfer paperwork and staff. Prior to sending her to the ER she was given 2 liters of NS. Review of labs on 10/04/22 with a serum sodium of 150, potassium 3.5, CO2 30, cr 0.99. At [facility] she had an initial blood pressure [...] bradycardia. According to paperwork and report from [facility], with patient's underlying psychiatric disorders, baseline ranges from appropriate behavior to catatonia. Patient was admitted to [facility] on 09/28 due to worsening confusion and psychosis and in a catatonic state. In assessment dated 09/29, patient is noncommunicative does not cooperate, does not follow commands. Upon arrival to [facility] she was noted to be [...] data available. Assessment/Plan 1. Hypernatremia Transferred to [facility] from [place] for hypernatremia, AMS, hypotension, hypothermia, UTI and multiple electrolyte imbalances. Sodium level on 10/04/22 was elevated at 150. Admission to [facility] ER her sodium was 158 at 13:25. [...] Date: 10/09/22 16:28:00 EDT, Dispense From Location: [facility], 10/09/22 16:28:00 EDT Basic Metabolic Profile [...] Normal Saline F (more content not included)... [facility] 10-09-2022 Note History of Present I [...] the phone. Patient is currently residing at [facility]. Patient arrived to [facility] emergency department at 1317 on 10/08 from [facility], with initial blood pressure of 195/91, heart [...] bradycardia. According to paperwork and report from [facility], with patient's underlying psychiatric disorders, baseline ranges from appropriate behavior to catatonia. Patient was admitted to [facility] on 09/28 due to worsening confusion and psychosis and in a catatonic state. In assessment dated 09/29, patient is noncommunicative does not cooperate, does not follow commands. Patient is seen in [facility] ICU and arouses to name [...] the phone. Patient is currently residing at [facility]. Admitted to ICU. Assessment: Catatonic schizophrenia Hypernatremia [...] familiar with this patient, recently evaluated at [facility], patient also catatonic during psych eval at [facility], no consult at this time but notifying of patient's admission. - D/w patient's Freddy, . Lives in [place] and will not be able to visit until tomorrow. Patient follows with psychiatrist Dr. Lazaor. states the patient has had multiple admissions due to repeat episodes of her catatonia. - Social work for discharge planning - Consider palliative care consult, goals of care, ACP Medical necessity for ongoing hospitalization: Hypernatremia, metabolic encephalopathy, hypothermia Complication risk: Endorgan failure due to hypothermia, increasing sodium Disposition Activity at baseline: Ambulatory, currently resides at [facility] Anticipated Discharge Location: [facility] Time spent with the patient bedside, reviewing old and current records, talking to staff and coordinating patient care has been approximately 60 minutes. Code Status: Full Resuscitation Problem List/Past Medical History Ongoing No qualifying data Historical No qualifying data Medications Inpatient acetaminophen, 650 mg, Oral, q6hr, PRN acetaminophen, 650 mg, Oral, q6hr, PRN Dextrose 5% in Lactated Ringers Inj (more content not included)... [facility] 06-17-2022 Progress note Note Date/Time June 17, 2022 2:19pm [facility] [address] [place] [address] Psychiatry Progress Note Signed Patient: Marley Osborn MR#: [id number] : 1955 Acct:[id number] Age/Sex: 66 / F Adm Date: 2 Loc: Room: [address] [place] [address] Type : ADM IN Attending Dr: Reggie [...] <Electronically signed by Reggie Quintana MD> 06/17/22 [facility] Work Phone: 1(686) 828-683901-15-2023 Consult note Author Nilo Rosales [facility] June 16, 2022 5:18pm Note Date/Time June 14, 2022 6 :43pm [facility] [address] [place] [address] Hospitalist Consult Note Signed Patient: Marley Osborn MR#: [id number] : 1955 Acct:[id number] Age/Sex: 66 / F Adm Date: 2 Loc: Room: [address] [place] [address] Type: ADM IN Attending Dr: Reggie Quintana [...] Flagyl and Terazol treatment for possible vaginitis, SOLUTION SPECIALIST following ?Continue supportive care Increased creatinine?likely due to poor oral intake ?Creatinine 1.44, encouraged increased oral intake ?Monitor BMP Schizophrenia ?Continue plan of care Psychiatric team (2) Schizophrenia: Documented By: Marlene Guerra APRN 06/14/22 1842 Signed By: <Electronically signed by DENIA Guerra> 06/15/22 1538 <Electronically signed by Nilo Rosales DO> 06/16/22 3939 [facility] Work Phone: 1(309) 936-714801-15-2023 Progress note Author Marlene Guerra [facility] June 16, 2022 3:07pm Note Date/Time June 16, 2022 2 :37pm [facility] [address] [place] [address] Hospitalist Progress Note Signed Patient: Marley Osborn MR#: [id number] : 1955 Acct:[id number] Age/Sex: 66 / F Adm Date: 2 Loc: Room: [address] [place] [address] Type: ADM IN Attending Dr: Reggie Quintana [...] Flagyl and Terazol treatment for possible vaginitis, SOLUTION SPECIALIST following ?Continue supportive care Increased creatinine?likely due to poor oral intake ?Creatinine 1.44, encouraged increased oral intake ?Monitor BMP Schizophrenia ?Continue plan of care Psychiatric team (2) Schizophrenia: Documented By: Marlene Guerra APRN 06/16/22 1435 Signed By: <Electronically signed by DENIA Guerra> 06/16/22 5776 [facility] Work Phone: 1(450) 559-572401-15-2023 Progress note Author Marty brewster [facility] June 16, 2022 8:49am Note Date/Time June 16, 2022 8 :48am [facility] [address] [place] [address] Psychiatry Progress Note Signed Patient: Marley Osborn MR#: [id number] : 1955 Acct:[id number] Age/Sex: 66 / F Adm Date: 2 Loc: Room: [address] [place] [address] Type : ADM IN Attending Dr: Reggie Quintana MD Copies to: ~ Date of Service: 06/16/2022 Subjective Subjective Narrative: Ms. Osborn states she is doing better today. She appears less distracted compared to yesterday. She denied any AVH or feeling paranoid. I believe she had a change in mental status due to an active infection. SOLUTION SPECIALIST started Flagyland an antifungal. She denied SI/HI. [...] signed by Marty Mclean MD> 06/16/22 0849 [facility] Work Phone: 1(345) 234-946501-14-2023 Progress note Author Marty brewster [facility] June 15, 2022 8:48am Note Date/Time June 15, 2022 8 :45am [facility] [address] [place] [address] Psychiatry Progress Note Signed Patient: Marley Osborn MR#: [id number] : 1955 Acct:[id number] Age/Sex: 66 / F Adm Date: 2 Loc: Room: [address] [place] [address] Type : ADM IN Attending Dr: Reggie [...] signed by Marty Mclean MD> 06/15/22 0848 [facility] Work Phone: 1(960) 932-110901-13-2023 Progress note Author Marty brewster [facility] June 14, 2022 3:56pm Note Date/Time June 14, 2022 3 :56pm [facility] [address] [place] [address] Psychiatry Progress Note Signed Patient: Marley Osborn MR#: [id number] : 1955 Acct:[id number] Age/Sex: 66 / F Adm Date: 2 Loc: 1S Room: [address] [place] [address] Type : ADM IN Attending Dr: Reggie [...] explained Documented By: Marty Mclean MD [id number] Signed By: <Electronically signed by Marty Mclean MD> 06/14/22 1316 [facility] Work Phone: 1(113) 987-733501-12-2023 Progress note Author Marty brwester [facility] June 13, 2022 12:12pm Note Date/Time June 13, 2022 1 2:12pm [facility] [address] [place] [address] Psychiatry Progress Note Signed Patient: Marley Osborn MR#: [id number] : 1955 Acct:[id number] Age/Sex: 66 / F Adm Date: 2 Loc: Room: [address] [place] [address] Type : ADM IN Attending Dr: Reggie [...] signed by Marty Mclean MD> 06/13/22 1212 [facility] Work Phone: 1(671) 233-432201-11-2023 Progress note Author Marty brewster [facility] June 12, 2022 9:52am Note Date/Time June 12, 2022 9 :52am [facility] [address] [place] [address] Psychiatry Progress Note Signed Patient: Marley Osborn MR#: [id number] : 1955 Acct:[id number] Age/Sex: 66 / F Adm Date: 2 Loc: Room: [address] [place] [address] Type : ADM IN Attending Dr: Reggie [...] signed by Marty Mclean MD> 06/12/22 0952 [facility] Work Phone: 1(944) 902-499001-10-2023 Progress note Author Marty brewster [facility] June 11, 2022 6:33pm Note Date/Time June 11, 2022 6 :32pm [facility] [address] [place] [address] Psychiatry Progress Note Signed Patient: Marley Osborn MR#: [id number] : 1955 Acct:[id number] Age/Sex: 66 / F Adm Date: 2 Loc: Room: [address] [place] [address] Type : ADM IN Attending Dr: Reggie [...] explained Documented By: Marty Mclean MD 3 [id number] Signed By: <Electronically signed by Marty Mclean MD> 06/11/22 1833 [facility] Work Phone: 1(779) 594-144101-09-2023 Progress note Author Marty brewster [facility] June 10, 2022 10:44am Note Date/Time June 10, 2022 10 :44am [facility] [address] [place] [address] Psychiatry Progress Note Signed Patient: Marley Osborn MR#: [id number] : 1955 Acct:[id number] Age/Sex: 66 / F Adm Date: 2 Loc: Room: [address] [place] [address] Type : ADM IN Attending Dr: Reggie [...] Pt denies visual hallucinations, SI, or HI. 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 MSE: Appearance: grossly normal.? [...] <Electronically signed by Marty Mclean MD> 06/10/22 1048 [facility] Work Phone: 1(119) 808-733801-08-2023 Progress note Author Reggie Quintana [facility] June 09, 2022 12:26pm Note Date/Time June 09, 2022 12 :26pm [facility] [address] [place] [address] Psychiatry Progress Note Signed Patient: Marley Osborn MR#: [id number] : 1955 Acct:[id number] Age/Sex: 66 / F Adm Date: 2 Loc: Room: [address] [place] [address] Type : ADM IN Attending Dr: Reggie [...] <Electronically signed by Reggie Quintana MD> 06/09/221225 [facility] Work Phone: 1(223) 574-331601-07-2023 Progress note Author Reggie Quintana [facility] June 08, 2022 12:13pm Note Date/Time June 08, 2022 12 :13pm [facility] [address] [place] [address] Psychiatry Progress Note Signed Patient: Marley Osborn MR#: [id number] : 1955 Acct:[id number] Age/Sex: 66 / F Adm Date: 2 Loc: Room: 4E8769-8 Type : ADM IN Attending Dr: Reggie [...] <Electronically signed by Reggie Quintana MD> 06/08/221212 [facility] Work Phone: 1(755) 508-572101-06-2023 Progress note Author Marty brewster [facility] June 07, 2022 9:18am Note Date/Time June 07, 2022 9: 17am [facility] [address] [place] [address] Psychiatry Progress Note Signed Patient: Marley Osborn MR#: [id number] : 1955 Acct:[id number] Age/Sex: 66 / F Adm Date: 2 Loc: Room: [address] [place] [address] Type : ADM IN Attending Dr: Reggie [...] signed by Marty Mclean MD> 06/07/22 0918 [facility] Work Phone: 1(237) 142-178401-05-2023 Progress note Author Marty brewster [facility] June 06, 2022 6:57am Note Date/Time June 06, 2022 6: 57am [facility] [address] [place] [address] Psychiatry Progress Note Signed Patient: Marley Osborn MR#: [id number] : 1955 Acct:[id number] Age/Sex: 66 / F Adm Date: 2 Loc: Room: [address] [place] [address] Type : ADM IN Attending Dr: Reggie [...] signed by Marty Mclean MD> 06/06/22 0657 [facility] Work Phone: 1(241) 600-545801-04-2023 Progress note Author Marty Ritchie z [facility] June 05, 2022 9:13am Note Date/Time June 05, 2022 9: 13am [facility] [address] [place] [address] Psychiatry Progress Note Signed Patient: Marley Osborn MR#: [id number] : 1955 Acct:[id number] Age/Sex: 66 / F Adm Date: 2 Loc: Room: [address] [place] [address] Type : ADM IN Attending Dr: Reggie [...] signed by Marty Mclean MD> 06/05/22 0913 [facility] Work Phone: 1(824) 560-560901-03-2023 Progress note Author Marty brewster [facility] June 04, 2022 8:29am Note Date/Time June 04, 2022 8: 27am [facility] [address] [place] [address] Psychiatry Progress Note Signed Patient: Marley Osborn MR#: [id number] : 1955 Acct:[id number] Age/Sex: 66 / F Adm Date: 2 Loc: Room: [address] [place] [address] Type : ADM IN Attending Dr: Reggie [...] for cognitive impairment/dementia with MMSE score of 1130 -Continue PT and OT. -Order CT scan [...] signed by Marty Mclean MD> 06/04/22 08 [facility] Work Phone: 1(264) 908-728401-02-2023 Progress note Author Marty brewster [facility] June 03, 2022 12:55pm Note Date/Time June 03, 2022 10 :30am [facility] [address] [place] [address] Psychiatry Progress Note Signed with Addenda Patient: Marley Osborn MR#: [id number] : 1955 Acct:[id number] Age/Sex: 66 / F Adm Date: 2 Loc: 1S Room: [address] [place] [address] Type : ADM IN Attending Dr: Reggie [...] difficulty overnight understanding directions and needed constant [id number]-pfpq prompting tocomplete tasks like going to bathroom [...] State Exam (MMSE) performed with score of /30. After being unable to answer many of [...] signed by MD TARA Vasquez> 06/03/22 1206 [facility] Work Phone: 1(724) 166-485601-01-2023 Consult note Author Elvin Khan [facility] June 02, 2022 12:01pm Note Date/Time June 01, 2022 12:13pm [facility] [address] [place] [address] Hospitalist Consult Note Signed Patient: Marley Osborn MR#: [id number] : 1955 Acct:[id number] Age/Sex: 66 / F Adm Date: 2 Loc: Room: [address] [place] [address] Type: ADM IN Attending Dr: Reggie Quintana MD Copies to: MD Elvin Noel MD Kim E Knight, MD Paula G Smith, CASER~ HPI DATE OF CONSULTATION: 06/01/22 REQUESTING PROVIDER: Reggie Quintana Consult Narrative Reason for Consult: Anemia, hypokalemia, and confusion HPI: Mrs. Osborn is a 66-year-old female with a PMH of schizophrenia, dementia, and HTN that was transferred to [facility] for MHP from [facility] where she was hospitalized for increasing confusion and aggression. Patient seen and evaluated in 1 S., she is sitting in a table eating lunch. She is alert. She denies chest pain, shortness of breath. She denies dysuria. She denies fever, chills. She was admitted to [facility] and work-up included a CT of the [...] was previously treated with IV levofloxacin at [facility] for UTI. Hospitalist team has been consulted [...] % (Auto) 57.4, Lymph % (Auto) 26.3, [place] % (Auto) 11.7, Eos % (Auto) 4.1, Baso % (Auto) 0.5, Nucleat RBC Rel Count 0.3, Neut # (Auto) 2.9, Lymph # (Auto) 1.3, [place] # (Auto) 0.6, Eos # (Auto) 0.2, Baso # (Auto) 0.0 05/31/22 21:37: Urine Color Yellow, Urine Appearance Clear, Urine pH 5.5, Ur Specific [place] 1.030, Urine Protein Negative, Urine Glucose (UA) [...] signed by Elvin Khan MD> 06/02/22 1201 [facility] Work Phone: 1([phone]) 180-411501-01-2023 Progress note Author Marty brewster [facility] June 02, 2022 9:23am Note Date/Time June 02, 2022 9: 23am [facility] [address] [place] [address] Psychiatry Progress Note Signed Patient: Marley Osborn MR#: [id number] : 1955 Acct:[id number] Age/Sex: 66 / F Adm Date: 2 Loc: Room: [address] [place] [address] Type : ADM IN Attending Dr: Reggie [...] signed by Marty Mclean MD> 06/02/22 0923 [facility] Work Phone: 1(340) 645-790512-31-2022 Progress note Author Marty brewster [facility] June 01, 2022 8:51am Note Date/Time June 01, 2022 8:50am [facility] [address] [place] [address] Psychiatry Progress Note Signed Patient: Marley Osborn MR#: [id number] : 1955 Acct:[id number] Age/Sex: 66 / F Adm Date: 2 Loc: Room: [address] [place] [address] Type : ADM IN Attending Dr: Reggie Quintana MD Copies to: ~ Date of Service: 06/01/2022 Subjective Subjective Narrative: Ms. Osborn is a 66 year old female transferred from [facility] where she was admitted 05/27 for [...] difficulty. History of schizophrenia with multiple hospitalizations. [facility] ruled out CVA with negative head CT and negative head/neck CTA. -Continue risperidone per -Given recent UTI with altered mental status, repeat UA today. Received IV levaquin while at [facility] beginning 05/27. Cultures pending at time of transfer. -CBC, BMP labs to monitor signs of infection, electrolytes -Fall risk; continue safety precautions -Continue to monitor mental status -Risks, benefits, and alternatives of treatment explained -Consult hospitalist for underlying medical problems. Documented By: Marty Mclean MD 2 0849 Signed By: <Electronically signed by Marty Mclean MD> 06/01/22 0851 [facility] Work Phone: 1(211) 546-381712-30-2022 History and physical note Author Reggie Quintana [facility] May 31, 2022 1:20pm Note Date/Time May 31, 2022 11:07am [facility] [address] [place] [address] Psychiatry H&P Signed Patient: Marley Osborn MR#: [id number] : 1955 Acct:[id number] Age/Sex: 66 / F Adm Date: 2 Loc: Room: [address] [place] [address] Type: ADM IN Attending Dr: Reggie Quintana MD Copies to: MD Melva Noel MD Rebecca Howard, MD, RES~ Date of Service: 05/31/2022 HPI History of Present Illness History of present illness: Ms. Osborn is a 66 year old female transferred from [facility] where she was admitted 05/27 for UTI with confusion, dysphagia, and incomprehensible, slurred speech. According to nursing admit notes, she has been displaying more aggressive behavior hitting , jumping on bed, and breaking things at home. She has reportedly had hallucinations since March. Her outpatient psychiatrist increased her risperidone 2-3 months ago in response to these symptoms. Reported discharge from [facility] 3 weeks ago; I cannot see record [...] difficulty. History of schizophrenia with multiple hospitalizations. [facility] ruled out CVA with negative head CT and negative head/neck CTA. -Restarted home risperidone, dose increased to 3mg. To increase to twice daily beginning tomorrow. -Discontinued home Abilify for concerns of polypharmacy. -Given recent UTI with altered mental status, repeat UA today. Received IV levaquin while at [facility] beginning 05/27. Cultures pending at time of transfer. -CBC, BMP labs to monitor signs of infection, electrolytes -Fall risk; continue safety precautions -Continue to monitor mental status -Risks, benefits, and alternatives of treatment explained Documented By: Reggie Quintana MD 05/31/22 1054 Signed By: <Electronically signed by Reggie Quintana MD> 05/31/22 1320 <Electronically signed by MD TARA Vasquez> 05/31/22 1229 [facility] Work Phone: Discharge summary Author Reggie Quintana [facility] June 18, 2022 2:21pm Note Date/Time June 18, 2022 2 :21pm [facility] [address] [place] [address] Discharge Summary Signed Patient: Marley Osborn MR#: [id number] : 1955 Acct:[id number] Age/Sex: 66 / F Adm Date: 2 Loc: Room: [address] [place] [address]: Reggie Quintana MD Copies to: MD Melva Noel MD~ Providers Date of Discharge: 06/18/22 Discharging Provider: Reggie Quintnaa Primary Care Provider: Melva Escobedo Consults: 05/31/22 10:32 OT [Consult to Occupational Therapy] Routine PT [Consult to Physical Therapy] Routine 06/15/22 07:59 Consult to Gynecology Routine Discharge Diagnosis (1) Schizophrenia: (2) Neurocognitive disorder: Final Diagnosis Final Discharge Diagnosis: Schizophrenia Major neurocognitive disorder Summary Hospital Course Hospital course: According to admission note: Ms. Osborn is a 66 [facility] for UTI with confusion, dysphagia, andincomprehensible, slurred speech.? According to nursing admit notes, she has been displaying more aggressive behavior hitting , jumping on bed, and breaking things at home.? She has reportedly had hallucinations since March. Her outpatient psychiatrist increased her risperidone 2-3 months ago in responseto these symptoms. Reported discharge from [facility] 3 weeks ago; I cannot see record [...] diet. No activity restrictions. Instructions: Schizophrenia (DC), [facility] [place] Instructions [...] Psychiatry: 07/02/22 at 10:30am with Dr. Lazaro) [facility] Hotline [Outside] Melva Escobedo MD [Primary Care Provider] - 06/24/22 1:30 pm (for home health referral) Documented By: Reggie Qunitana MD 06/18/22 1419 Signed By: <Electronically signed by Reggie Quintana MD> 06/18/22 1421 [facility] Work Phone: Evaluation + Plan note Future Appointments Appointment Date:06/24/2023 01:40:00 PM Scheduled Provider:Keya Lucas Location:[facility] Appointment Type: Open Appointment Date:02/24/2024 11:00:00 AM Scheduled Provider: Location:[facility] Appointment Type: Medicare Wellness Subsequent Diagnostic Tests Pending * T[facility]ments Appointment Date:09/29/2023 10:00:00 AM Scheduled Provider:Deb Neumann MD Location:[facility].ONCOLOGY Appointment Type:ONC Office Visit 30 (FT) Appointment Date:12/16/2023 01:40:00 PM Scheduled Provider:Keya Lucas Location:[facility] Appointment Type: Open Appointment Date:02/24/2024 11:00:00 AM Scheduled Provider: Location:[facility] Appointment Type: Medicare Wellness Subsequent Future Scheduled Tests Radiology* US Breast Unilateral Lt Complete 09/02/23 * MA Mamm Diag w/CAD if perf and 3D LT [facility]02[facility]23 [facility] Future App[facility]ments Appointment Date:09/29/2023 10:00:00 AM Scheduled Provider:Deb Neumann MD Location:[facility].ONCOLOGY Appointment Type:ONC Office Visit 30 (FT) Appointment Date:12/16/2023 01:40:00 PM Scheduled Provider:Keya Lucas Location:[facility] Appointment Type: Open Appointment Date:02/24/2024 11:00:00 AM Scheduled Provider: Location:[facility] Appointment Type: Medicare Wellness Subsequent General Surgery [facility] Evaluation + Plan note Future Appointments Appointment Date:11/11/2023 10:30:00 AM Scheduled Provider:Deb Neumann MD Location:[facility]ONCOLOGY Appointment Type:ONC Office Visit 30 (FT) Appointment Date:12/16/2023 01:40:00 PM Scheduled Provider:Keya Lucas Location:[facility] Appointment Type:FM Open Appointment Date:02/24/2024 11:00:00 AM Scheduled Provider: Location:[facility] Appointment Type: Medicare Wellness Subsequent [facility] Future Appointments Appointment Date:12/16/2023 01:40:00 PM Scheduled Provider:Keya Lucas Location:[facility] Appointment Type:FM Open Appointment Date:12/22/2023 01:00:00 PM Scheduled Provider:Milo GARCIA MD Location:[facility] Appointment Type:GS Post Op 15 Appointment Date:01/05/2024 11:00:00 AM Scheduled Provider:Deb Neumann MD Location:[facility]ONCOLOGY Appointment Type:ONC Office Visit 30 (FT) Appointment Date:02/24/2024 11:00:00 AM Scheduled Provider: Location:[facility] Appointment Type:FM Medicare Wellness Subsequent [facility] Evaluation note* Diagnosis Onset Date Resolution Status AMS (altered mental status) acute Anemia acute Confusion acute HTN (hypertension) acute Hypokalemia acute Neurocognitive disorder acut e Schizophrenia acute UTI (urinary tract infection) acute Vaginitis [facility] Work Phone: Evaluation note* Diagnosis Altered mental status, unspecified altered mental status type- Primary Hypernatremia Hyperosmolality and/or hypernatremia Urinary tract infection without hematuria, site unspecified documented in this encounter [facility] Work Phone: Hospital course Narrative No data available for this section [facility] Discharge instructionsAmbulatory Orders* DME Home Medical Equipment Time Frame: 1 Year, Location: Determined By Patient Additional Instructions Regular diet. No activity restrictions.[facility] Work Phone: Hospital Discharge instructions No data available for this section [facility] No data available for this section [facility] Chief Complaint and Reason for Visit [...] Melva Escobedo MD Primary Care Provider Active Production Clerk Relationship Specialty Start Date End Date Jamil Lundberg MD [address] [place] [address] PCP - General Psychiatry 08/25/22 Production Clerk Relationship Specialty Start Date End Date Jamil Lundberg MD [address] [place] [address] PCP - General Psychiatry 08/25/22 Production Clerk Relationship Specialty Start Date End Date Jamil Lundberg MD [address] [place] [address] PCP - General Psychiatry 08/25/22 Production Clerk Relationship Specialty Start Date End Date Jamil Lundberg MD [address] [place] [address] PCP - General Psychiatry 08/25/22 Production Clerk Relationship Specialty Start Date End Date Jamil Lundberg MD [address] [place] [address] PCP - General Psychiatry 08/25/22 Production Clerk Relationship Specialty Start Date End Date Jamil Lundberg MD [address] [place] [address] PCP - General Psychiatry 08/25/22 Reason for [...] 1628 (New Bag - Provider: Hafsa Hermosillo, CHRISTIAN) 0557 (Stopped - Provider: Ifeoma Montana RN [...] [facility] DATE CREATED AUTHOR AUTHOR'S ORGANIZ ATION 10/15/2022 [facility] DATE CREATED AUTHOR AUTHOR'S ORGANIZ ATION 11/13/2023 [facility] DATE CREATED AUTHOR AUTHOR'S ORGANIZ ATION 11/19/2023 [facility] DATE CREATED AUTHOR AUTHOR'S ORGANIZ ATION 11/25/2023 [facility] DATE CREATED AUTHOR AUTHOR'S ORGANIZ ATION 12/17/2023 [facility] FOR RECORDS PERTAINING TO PATIENTS WHO ARE [...] BE BASED ON THE PRIMARY CLINICAL RECORDS. [facility] [employer] [facility]. provides no warranty or guarantee of the accuracy or completeness of information in this document.
--- NOTE | 2023-12-17 07:55 | US_ITS ---
The [address] [address] Patient Name: MARLEY OSBORN MRN: [id number] date: 1955 Sex: F Assigned Patient Location: SURGOUT Current Patient Location: Accession/Order Number: [id number] Exam Date: 12/17/2023 07:56 Report Date: 12/18/2023 04:33 At the request of: GABBY GARCIA Procedure: US sentinel node EXAM: US sentinel node HISTORY: Invasive ductal carcinoma COMPARISON: Ultrasound breast 09/09/2023, mammography 07/28/2023 TECHNIQUE: Percutaneous ultrasound of right breast. FINDINGS: Two biopsy clips identified within right breast as expected. The biopsy clip and associated mass of concern is present at the 3:00 position. US/US sentinel node IMPRESSION: Localization of 3:00 biopsy marker clip and adjacent small suspicious mass for nuclear medicine sentinel node injection. Electronically authenticated by: DENNIS GALEAS Date: 12/18/2023 04:33
--- NOTE | 2023-12-17 07:55 | US_ITS ---
The [address] [address] Patient Name: MARLEY OSBORN MRN: [id number] date: 1955 Sex: F Assigned Patient Location: SURGOUT Current Patient Location: [facility] Accession/Order Number: [id number] Exam Date: 12/17/2023 09:15 Report Date: 12/17/2023 14:38 At the request of: GABBY GARCIA Procedure: US breast needle loc RT EXAM: US breast needle loc RT HISTORY: Invasive ductal carcinoma COMPARISON: Ultrasound breast left Limited 09/09/2023, mammography 07/28/2023, 07/18/2023 TECHNIQUE: Percutaneous ultrasound evaluation of right breast. FINDINGS: Within the right breast at the 3:00 position is a biopsy marker clip adjacent the small heterogeneous masslike area which produces posterior shadowing. Skin surface was prepped and normal sterile fashion and anesthetized with 1% buffered lidocaine. A 5 cm long needle and localization wire were advanced into the right breast from a cephalad approach with the needle lying deep to the biopsy marker clip and suspicious lesion. Needle was locked in place via the curved wire. The patient tolerated the procedure well and there were no postprocedural complications. Patient was prepped and returned to surgery. US/US breast needle loc RT IMPRESSION: Successful wire localization of right breast 3:00 biopsy marker clip and adjacent lesion. Electronically authenticated by: DENNIS GALEAS Date: 12/17/2023 14:38
--- NOTE | 2023-12-17 08:00 | US_ITS ---
[address] [address] Patient Name: MARLEY OSBORN MRN: [id number] date: 1955 Sex: F [facility] Location: [facility] Accession/Order Number: [id number] Exam Date: 12/17/2023 08:01 Report Date: 12/17/2023 14:34 At the request of: GABBY GARCIA Procedure: US surgical specimen RT EXAM: US surgical specimen RT HISTORY: Invasive ductal carcinoma COMPARISON: Ultrasound breast needle localization right 12/17/2023 TECHNIQUE: Ultrasound evaluation of the surgical specimen FINDINGS: Localization wire and prior biopsy clip are both identified within the tissue sample. US/US surgical specimen RT IMPRESSION: 1. Surgical specimen includes the biopsy marker clip and localization wire. Electronically authenticated by: DENNIS GALEAS Date: 12/17/2023 14:34
--- NOTE | 2023-12-17 08:11 | PC.NURSE ---
0811: pt taken down to ultrasound.
[2023-12-17] MEDS: LIDOCAINE HCL 10 ML, SODIUM BICARBONATE 1 MEQ INJ (09:20)
--- NOTE | 2023-12-17 10:06 | PC.NURSE ---
(1000) Patient returned from radiology.
[2023-12-17] MEDS: LEVOFLOXACIN IN DEXTROSE 5 % 750 MG/150 ML IV.SOLN 100 MG IV (12:23)
[2023-12-17] MEDS: LACTATED RINGER'S SOLUTION 1,000 ML 50 ML IV (14:25)
[2023-12-17] MEDS: BUPIVACAINE HCL 0.5% PF 50 MG/10 ML VIAL 20 ML INJ (14:34)
== END 2023-12-17 16:14 | disposition home or self-care (01) ==
PROVIDERS: Radiology Diagnostic Radiology; PCP Nurse Practitioner; Visit Provider Surgery
DX: C50.811 Malignant neoplasm of overlapping sites of right female breast (principal); F20.2 Catatonic schizophrenia; I48.91 Unspecified atrial fibrillation; Z91.81 History of falling; G47.33 Obstructive sleep apnea (adult) (pediatric); Z79.899 Other long term (current) drug therapy; E78.5 Hyperlipidemia, unspecified; I10 Essential (primary) hypertension; K21.9 Gastro-esophageal reflux disease without esophagitis; M19.90 Unspecified osteoarthritis, unspecified site
CPT/HCPCS: 19301; 38525; 19285; 36415; 76098; 76965; 78195; 88307; 94667; A4648; A9541; J0665; J1100; J1885; J2250; J2371; J2405; J2704; J3010

== ENCOUNTER 2024-03-08 09:14 | Outpatient (OUT) | payer MEDICARE, SELFPAY ==
[2024-03-08 11:29] LABS: Alanine Aminotransferase 21 U/L (14-59); Albumin Level 3.5 g/dL (3.4-5.0); Alkaline Phosphatase 89 U/L (46-116); Aspartate Amino Transferase 12 U/L (15-37); Bilirubin Direct 0.1 mg/dL (0.0-0.2); Bilirubin Total 0.6 mg/dL (0.2-1.0); Globulin 3.5 g/dL
== END 2024-03-08 09:15 | disposition home or self-care (01) ==
LOC: LAB 09:14
PROVIDERS: PCP Nurse Practitioner
DX: M85.80 Other specified disorders of bone density and structure, unspecified site (principal); C50.311 Malignant neoplasm of lower-inner quadrant of right female breast; Z79.811 Long term (current) use of aromatase inhibitors
CPT/HCPCS: 36415; 80069; 80076

== ENCOUNTER 2024-04-13 10:45 | Outpatient (OUT) | payer MEDICARE, SELFPAY ==
--- NOTE | 2024-04-13 10:47 | MM_ITS ---
Patient Name: MARLEY OSBORN MR#: [id number] : 1955 Exam Date: 04/13/2024 Ordering Doctor: JANETTE Neumann RADIOLOGY REPORT PROCEDURE: MM TOMOSYNTHESIS DIAGNOSTIC BI COMPARISON: MM POST BIOPSY RT, 07/28/2023. MM TOMOSYNTHESIS DIAGNOSTIC LT, 09/09/2023. INDICATIONS: Malignant Neoplasm Of Lower Inner Quadrant Of Right Female Calculator Name NCI Breast Cancer Risk Assessment Tool 5 Year Breast Cancer Risk 5.50% Lifetime Breast Cancer Risk 16.20% Personal Breast Cancer No Personal Ovarian Cancer No Treatments None Family Cancers Mother with breast cancer at age 86; Brother with prostate cancer at age 64; Nephew with colon cancer at age 47; Grandfather-paternal with colon cancer at age ~60; Grandfather-paternal with lung cancer at age 30; Grandmother-maternal with uterine cancer at age ~50. LOCATION: [facility] BREAST COMPOSITION: The breasts are heterogeneously dense,which may obscure small masses. FINDINGS: DIAGNOSTIC CATEGORY 3--PROBABLY BENIGN FINDING. THE FOLLOWING FINDING(S) HAS A HIGH PROBABILITY OF A BENIGN ETIOLOGY: Scattered benign-appearing calcifications are present. Scattered benign-appearing lymph nodes are present. RIGHT BREAST: Interval lumpectomy 6 o'clock position of the right breast with new focal asymmetry and density deep to a linear scar marker. One of the micro clip markers is now absent. Additional linear scar markers right axilla and left breast. This likely represents postprocedural changes, given the difference from the prior exam six-month follow-up recommended. LEFT BREAST: No significant suspicious finding. RECOMMENDATIONS: SHORT TERM FOLLOW-UP DIAGNOSTIC MAMMOGRAM RIGHT BREAST IN 6 MONTHS. PLEASE NOTE: A NORMAL MAMMOGRAM DOES NOT EXCLUDE THE POSSIBILITY OF BREAST CANCER. A CLINICALLY SUSPICIOUS PALPABLE LUMP SHOULD BE BIOPSIED. Dictated by: Damien Weiss MD on 04/13/2024 at 11:33 Approved by: Damien Weiss MD on 04/13/2024 at 11:36
== END 2024-04-13 10:46 | disposition home or self-care (01) ==
LOC: MAMMO 10:45
PROVIDERS: PCP Nurse Practitioner; Visit Provider Internal Medicine
DX: M85.80 Other specified disorders of bone density and structure, unspecified site (principal); C50.311 Malignant neoplasm of lower-inner quadrant of right female breast; Z80.3 Family history of malignant neoplasm of breast; Z80.42 Family history of malignant neoplasm of prostate; Z80.0 Family history of malignant neoplasm of digestive organs; Z80.1 Family history of malignant neoplasm of trachea, bronchus and lung; Z80.8 Family history of malignant neoplasm of other organs or systems
CPT/HCPCS: 77066; G0279

== ENCOUNTER 2024-04-20 08:48 | Outpatient (OUT) | payer MEDICARE, SELFPAY ==
--- NOTE | 2024-04-20 09:05 | CT_ITS ---
The [address] [address] Patient Name: MARLEY OSBORN MRN: [id number] date: 1955 Sex: F Assigned Patient Location: LAB Current Patient Location: Accession/Order Number: [id number] Exam Date: 04/20/2024 10:07 Report Date: 04/21/2024 05:54 At the request of: JANETTE BEAN Procedure: CT head/brain wo/w con EXAMINATION: CT head/brain wo/w con HISTORY: Disorientation , Malignant Neoplasm Breast COMPARISON: CT head 10/08/2022 TECHNIQUE: Axial CT images were obtained without IV contrast. Dose reduction techniques were achieved by using automated exposure control and/or adjustment of mA and/or kV according to patient size and/or use of iterative reconstruction technique. FINDINGS: BRAIN: No edema, hemorrhage, mass, acute infarction, or inappropriate atrophy. CSF SPACES: No hydrocephalus, subarachnoid hemorrhage, or mass. Appropriate for age. SKULL: No fracture, mass, or other significant visible lesion. SINUSES: No significant mucosal thickening or fluid on the limited views. ORBITS: No appreciable abnormality on the limited views. OTHER: Negative CT/CT head/brain wo/w con IMPRESSION: 1. No acute abnormality or findings to suggest metastatic disease. 2. Age consistent chronic changes. Electronically authenticated by: DENNIS GALEAS Date: 04/21/2024 05:54
[2024-04-20 09:19] LABS: Estimated GFR (African America 43 (>=60 mL/min/1.73m^2); Estimated GFR (Non-African Ame 36 (>=60 mL/min/1.73m^2)
== END 2024-04-20 08:49 | disposition home or self-care (01) ==
LOC: LAB 08:49
PROVIDERS: PCP Nurse Practitioner; Visit Provider Internal Medicine
DX: M85.80 Other specified disorders of bone density and structure, unspecified site (principal); R41.0 Disorientation, unspecified; C50.311 Malignant neoplasm of lower-inner quadrant of right female breast
CPT/HCPCS: 36415; 70470; 82565; Q9967

== ENCOUNTER 2024-06-11 08:38 | Outpatient (OUT) | payer MEDICARE, SELFPAY ==
[2024-06-11 13:26] LABS: Alanine Aminotransferase 24 U/L (14-59); Albumin Globulin Ratio 1.1; Albumin Level 4.1 g/dL (3.4-5.0); Alkaline Phosphatase 98 U/L (46-116); Aspartate Amino Transferase 15 U/L (15-37); Bilirubin Direct 0.2 mg/dL (0.0-0.2); Globulin 3.6 g/dL; Total Protein 7.7 g/dL (6.4-8.2)
[2024-06-12 22:54] LABS: Bilirubin Total 0.8 mg/dL (0.2-1.0)
== END 2024-06-11 08:39 | disposition home or self-care (01) ==
LOC: LAB 08:38
PROVIDERS: PCP Nurse Practitioner; Visit Provider Internal Medicine
DX: M85.80 Other specified disorders of bone density and structure, unspecified site (principal); C50.311 Malignant neoplasm of lower-inner quadrant of right female breast
CPT/HCPCS: 36415; 80076

== ENCOUNTER 2024-06-21 10:31 | Outpatient (OUT) | payer MEDICARE, SELFPAY ==
--- NOTE | 2024-06-21 10:33 | US_ITS ---
[address] [address] Patient Name: MARLEY OSBORN MRN: [id number] date: 1955 Sex: F Assigned Patient Location: US Current Patient Location: Accession/Order Number: [id number] Exam Date: 06/21/2024 10:43 Report Date: 06/22/2024 00:33 At the request of: KATYA WEAVER Procedure: US pelvis w/ transvaginal EXAM: US Pelvis Transvaginal CLINICAL INDICATION: Pelvic Pain, History Fibroids TECHNIQUE: Real-time transvaginal pelvic ultrasound with image documentation. Transvaginal imaging was used for better evaluation of the endometrium and adnexa. COMPARISON: No relevant prior studies available. FINDINGS: LIMITATIONS: Bowel gas limit sensitivity. UTERUS/CERVIX: Uterus has been removed. Neither ovary is detected. US/US pelvis w/ transvaginal IMPRESSION: Neither ovary is seen. Hysterectomy changes. If persistent concern, consider CT imaging Electronically authenticated by: LOU HANKS Date: 06/22/2024 00:33
== END 2024-06-21 10:32 | disposition home or self-care (01) ==
LOC: US 10:31
PROVIDERS: PCP Nurse Practitioner; Visit Provider Nurse Practitioner
DX: R10.2 Pelvic and perineal pain (principal)
CPT/HCPCS: 76830; 76856

== ENCOUNTER 2024-10-01 13:10 | Outpatient (OUT) | payer MEDICARE, SELFPAY ==
--- NOTE | 2024-10-01 13:21 | MR_ITS ---
The [address] [address] Patient Name: MARLEY OSBORN MRN: [id number] date: 1955 Sex: F Assigned Patient Location: MRI Current Patient Location: MRI Accession/Order Number: [id number] Exam Date: 10/01/2024 14:37 Report Date: 10/01/2024 14:38 At the request of: KATYA WEAVER Procedure: MR head/brain wo con EXAMINATION: MRI OF THE BRAIN WITHOUT CONTRAST CLINICAL HISTORY: Disorientation COMPARISON: None TECHNIQUE: Multiecho, multiplanar imaging of the brain was performed without enhancement. FINDINGS: No evidence of restriction diffusion is an diffusion-weighted imaging. No evidence of blood products are seen on T2 Star imaging. Cortical atrophy with mild chronic microvascular ischemic changes. Posterior fossa appears grossly unremarkable. Intraorbital contents appear grossly unremarkable. Minimal ethmoid sinus disease. MR/MR head/brain wo con IMPRESSION: NO ACUTE INTRACRANIAL PROCESS. CORTICAL ATROPHY WITH MILD CHRONIC MICROVASCULAR ISCHEMIC CHANGES. Impression dictated by: Cody Zayas Jr., D.O. 10/01/2024 2:38 PM Dictation Location: [place] [address] Electronically authenticated by: [id number] Y Date: 10/01/2024 14:38
== END 2024-10-01 13:11 | disposition home or self-care (01) ==
LOC: MRI 13:12
PROVIDERS: PCP Nurse Practitioner; Visit Provider Nurse Practitioner
DX: R41.0 Disorientation, unspecified (principal); R41.89 Other symptoms and signs involving cognitive functions and awareness; E66.9 Obesity, unspecified; Z78.9 Other specified health status; Z68.34 Body mass index [BMI] 34.0-34.9, adult
CPT/HCPCS: 70551

== ENCOUNTER 2024-10-08 07:55 | Observation (INO) | payer MEDICARE, SELFPAY ==
[2024-10-08] VITALS (28 sets, daily range): BP systolic 100–138; BP diastolic 45–73; PULSE 56–117; TEMP 32.7–37.3; O2SAT 91–98; BMI 41.4; BMI 33.8
--- NOTE | 2024-10-08 08:11 | ECG_ITS ---
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 Measurements Intervals [place] Rate: 56 P: 70 LA: 160 QRS: 40 QRSD: 102 T: 33 QT: 400 QTc: 392 Interpretive Statements 1100 Sinus rhythm 4068 Nonspecific [place] abnormality Abnormal ECG Compared to ECG 10/08/2023 09:44:07 Sinus bradycardia no longer present Electronically Signed On 10-08-2024 18:42:35 EDT by TOM WALLER M.D.
--- NOTE | 2024-10-08 08:20 | ED.GENADUL1 ---
HPI HPI - General Adult General Chief complaint: Altered Mental Status Stated complaint: ALTERED MENTAL STATUS Time Seen by Provider: 10/08/24 08:11 Source: patient Mode of arrival: ambulance Limitations: no limitations History of Present Illness HPI narrative: Patient is a 68-year-old female who is presented to the ER with chief complaint of more sluggish, confusion, decreased mental status. Patient's had no fall. Patient lives at home with . Patient uses a walker. This week she has been walking around with her 2 feet, but the last couple days she has been more fatigued, weak. Patient does have moderate flat affect, monotone, answering questions somewhat appropriately. At home patient's states that she will intermittently answer questions and then she will not. Patient just had an MRI last week, no acute findings. Patient has been acting rather normal this week until yesterday and today. Patient was more shuffling, more decreased activity, more decreased motor function. No falls. No head injury. Patient has no headache, chest pain, shortness of breath. Patient has no abdominal pain, nausea or vomiting. No rash. Patient is supposed to be wearing her CPAP mask every night, she refuses to do this. Patient will sleep in a reclining chair in the upright position. Patient slept on the couch in the family room with patient last night as well. She snored all night. Patient is not wearing her CPAP at nighttime. Patient sees Dr. Gardner for neurology. Patient sees a nurse practitioner for a PCP. 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 All systems are negative except as noted/marked. All systems reviewed and otherwise negative. Nurses note and vital signs reviewed and patient is not hypoxic. General: The patient appears flat affect, soft voice, monotone, intermittently have to stimulate the patient a few times to answer questions by lightly tapping on her arm or leg. Patient is confused to time slightly, believes it is July, does know the president and place and name. Patient is resting comfortably on cart. Patient is not toxic, mildly lethargic, or listless Skin: Warm, dry, no pallor noted. There is no rash noted. No petechiae, purpura. Head: Normocephalic, atraumatic Eye: Normal conjunctiva, no drainage, EOMI. PERRL Ears, Nose, Mouth, and Throat: oral mucosa is moist. Nares patent. Mouth without vesicles. Cardiovascular: Regular Rate and Rhythm, no murmur, gallop, rub Respiratory: Patient is in no distress, no accessory muscle use, lungs are clear to auscultation, no wheezing, rales or rhonchi Back: non-tender, no CVA tenderness bilaterally to percussion. No CT LS midline pain GI: Soft, obese, no tenderness to palpation, no masses appreciated. No rebound, guarding, or rigidity noted. No distention Musculoskeletal: Patient has full range of motion of all of the extremities, no motor, sensory, or focal neurological deficits Neurological: A&O x4, normal speech Psychiatric: Cooperative, flat affect, not suicidal homicidal, monotone, no facial expression Related Data Home Medications ?Medication ?Instructions ?Recorded ?Confirmed alendronate 70 mg tablet 70 mg PO QWEEK 05/05/23 10/08/24 haloperidol 5 mg tablet 5 mg PO BID 05/05/23 10/08/24 levothyroxine 50 mcg capsule 50 mcg PO DAILY 05/05/23 10/08/24 quetiapine 25 mg tablet (Seroquel) 50 mg PO .every evening 05/05/23 10/08/24 ergocalciferol (vitamin D2) 1,250 1,250 mcg PO QWEEK 07/28/23 10/08/24 mcg (50,000 unit) capsule (Vitamin D2) Previous Rx's ?Medication ?Instructions ?Recorded hydrocodone 5 mg-acetaminophen 325 1 tab PO Q6H PRN Pain Scale 4-6 12/17/23 mg tablet #14 tabs Allergies Allergy/AdvReac Type Severity Reaction Status Date / Time amoxicillin Allergy Hives Verified 12/03/23 11:20 cephalexin (From Keflex) Allergy Hives Verified 12/03/23 11:20 Sulfa (Sulfonamide Allergy Hives Verified 12/03/23 11:20 Antibiotics) [facility] Medical History (Updated 10/08/24 @ 09:30 by Rayo Engel MD) History of admission to inpatient psychiatry department ?Z86.59 - Personal history of other mental and behavioral disorders (ICD-10) Palpitations ?R00.2 - Palpitations (ICD-10) History of blood transfusion ?Z92.89 - Personal history of other medical treatment (ICD-10) Anemia ?D64.9 - Anemia, unspecified (ICD-10) Urinary tract infection ?N39.0 - Urinary tract infection, site not specified (ICD-10) Falls ?W19.XXXA - Unspecified fall, initial encounter (ICD-10) Atrial fibrillation ?I48.91 - Unspecified atrial fibrillation (ICD-10) Uterine fibroid ?D25.9 - Leiomyoma of uterus, unspecified (ICD-10) Paranoid schizophrenia ?F20.0 - Paranoid schizophrenia (ICD-10) IBS (irritable bowel syndrome) ?K58.9 - Irritable bowel syndrome without diarrhea (ICD-10) Vitamin D deficiency ?E55.9 - Vitamin D deficiency, unspecified (ICD-10) Osteopenia ?M85.80 - Other specified disorders of bone density and structure, unspecified site (ICD-10) Sleep apnea ?G47.30 - Sleep apnea, unspecified (ICD-10) Major depression with psychotic features ?F32.3 - Major depressive disorder, single episode, severe with psychotic features (ICD-10) Memory loss ?R41.3 - Other amnesia (ICD-10) Inversion, nipple ?N64.59 - Other signs and symptoms in breast (ICD-10) Hypothyroid ?E03.9 - Hypothyroidism, unspecified (ICD-10) Hyperlipidemia ?E78.5 - Hyperlipidemia, unspecified (ICD-10) Hypertension ?I10 - Essential (primary) hypertension (ICD-10) Fatigue ?R53.83 - Other fatigue (ICD-10) Anxiety ?F41.9 - Anxiety disorder, unspecified (ICD-10) DCIS (ductal carcinoma in situ) ?D05.10 - Intraductal carcinoma in situ of unspecified breast (ICD-10) Invasive ductal carcinoma of breast ?C50.919 - Malignant neoplasm of unspecified site of unspecified female breast (ICD-10) Osteoporosis ?M81.0 - Age-related osteoporosis without current pathological fracture (ICD-10) Depression with anxiety ?F41.8 - Other specified anxiety disorders (ICD-10) Arthritis ?M19.90 - Unspecified osteoarthritis, unspecified site (ICD-10) GERD (gastroesophageal reflux disease) ?K21.9 - Gastro-esophageal reflux disease without esophagitis (ICD-10) Arrhythmia ?I49.9 - Cardiac arrhythmia, unspecified (ICD-10) Schizophrenia ?F20.9 - Schizophrenia, unspecified (ICD-10) Surgical History (Updated 10/08/23 @ 09:10 by Zee Crowe NP) Hx of tonsillectomy ?Z90.89 - Acquired absence of other organs (ICD-10) History of cataract extraction with lens replacement H/O cataract extraction ?Z98.49 - Cataract extraction status, unspecified eye (ICD-10) H/O breast biopsy ?Z98.890 - Other specified postprocedural states (ICD-10) S/P breast biopsy, right ?Z98.890 - Other specified postprocedural states (ICD-10) H/O exploratory laparotomy ?Z98.890 - Other specified postprocedural states (ICD-10) History of adenoidectomy ?Z90.89 - Acquired absence of other organs (ICD-10) HX: benign breast biopsy ?Z98.890 - Other specified postprocedural states (ICD-10) S/P lumpectomy, left breast ?Z98.890 - Other specified postprocedural states (ICD-10) H/O colonoscopy ?Z98.890 - Other specified postprocedural states (ICD-10) Family History (Updated 10/08/23 @ 09:22 by Zee Crowe NP) Other ALS (amyotrophic lateral sclerosis) Dementia Family history of breast cancer Family history of myocardial infarction Social History (Updated 12/17/23 @ 07:22 by Malissa Evangelista) Within the past year, how often did you have a drink containing alcohol: monthly or less Smoking status: Never smoker Non-prescribed substance use: denies use Highest level of school completed/degree received: Bachelor's degree Exam Constitutional Vital Signs, click to edit/add: Last Vital Signs Temp 91.2 F L 10/08/24 09:12 Pulse 58 L 10/08/24 09:10 Resp 14 10/08/24 09:10 BP 100/50 10/08/24 09:00 Pulse Ox 98 10/08/24 09:10 O2 Del Method Room Air 10/08/24 08:02 Course Vital Signs Vital signs: Vital Signs Pulse Rate 64 10/08/24 08:01 Temperature 91.2 F L 10/08/24 09:12 Pulse Rate 58 L 10/08/24 09:10 Respiratory Rate 14 10/08/24 09:10 Blood Pressure 100/50 10/08/24 09:00 Pulse Oximetry 98 10/08/24 09:10 Oxygen Delivery Method Room Air 10/08/24 08:02 Medical Decision Making MDM Narrative Medical decision making narrative: Patient seen and examined: IV, CT head, chest x-ray, labs, EKG, urine Differential diagnosis includes but is not limited to: Confusion, electrolyte abnormality, UTI, pneumonia, dehydration, brain mass, intracranial bleed Diagnostics and management: Patient will have laboratory studies Relevant laboratory interpretation: CO2 51, lactic acid 2.6, minimal elevation of BUN and creatinine. Radiological studies: Please see the formal radiological report. CT of the brain shows no acute right intracranial pathology, chest x-ray shows no acute infiltrate, infection Reevaluation: Patient is responding slightly better to IV fluids, but still has flat affect. No skin sores, patient's perianal region is very clean, no signs acute signs of infection or sores per Alyse Louise RN. Shared decision making: I discussed with the patient the necessary laboratory findings and radiological findings. Social barriers to healthcare: There are no food insecurities, there is no issue with transportation, there are no insurance barriers. Disposition: I discussed with the patient and findings of hypothermia with no source. Multiple different rectal temperatures were done, along with 2 different probes, and patient's rectal temperature 91 is correct. Patient does feel cold to touch, we actually talked temperature as well, his was normal. states that the apartment they live in is 71 degrees. He did put a few blankets on the patient last evening because she was cold. Patient was given 2 L of warm fluid, patient is on a Bear hugger. I discussed case with Dr. Hay, we will start patient on prophylactic antibiotic. No elevation white blood cell count, she is not acidotic, she does have a lactic of 2.6, pH 7.36. Slight increase in BUN and creatinine. 2 L of warmed fluid aggressive resuscitation, Cuate hugger, multiple bedside visits reassessing patient, Critical care time 32 minutes exclusive from separate billable procedures that were performed. The following was considered in the determination of critical care but not limited to the level of medical decision making, intensive cardiac and/or respiratory monitoring, frequent vital sign monitoring, evaluation of laboratory studies, evaluation of radiographic studies, oxygen monitoring, and constant monitoring and speaking to family at bedside Lab Data Lab results reviewed: Yes I reviewed the patient's lab results Labs: Lab Results 10/08/24 10/08/24 10/08/24 Range/Units 08:23 08:28 08:58 WBC 4.7 (4.0-11.0) 10^3/uL RBC 3.66 L (4.20-5.40) 10^6/uL Hgb 11.3 L (12.0-16.0) g/dL Hct 33.6 L (36.0-48.0) % MCV 91.8 (81.0-99.0) fL MCH 30.9 (26.7-34.0) pg MCHC 33.6 (29.9-35.2) g/dL RDW 13.5 (11.0-15.0) % Plt Count 145 L (150-450) 10^3/uL MPV 9.9 (9.5-13.5) fL Neut % (Auto) 68.6 (43.0-75.0) % Lymph % (Auto) 23.9 (20.5-60.0) % Randall % (Auto) 5.4 (1.7-12.0) % Eos % (Auto) 1.5 (0.9-7.0) % Baso % (Auto) 0.4 (0.2-2.0) % Neut # (Auto) 3.2 (1.4-6.5) 10^3/uL Lymph # (Auto) 1.1 L (1.2-3.8) 10^3/uL Randall # (Auto) 0.3 (0.3-0.8) 10^3/uL Eos # (Auto) 0.1 (0.0-0.7) 10^3/uL Baso # (Auto) 0.0 (0.0-0.1) 10^3/uL Abs Immat Gran (auto) 0.01 (0.00-0.03) 10^3/uL Imm/Tot Granulo (auto) 0.2 (0.0-0.5) % VBG pH 7.368 (7.330-7.430) VBG pCO2 51.4 (40.0-52.0) mmHg Sodium 138 (136-145) mmol/L Potassium 3.5 (3.5-5.1) mmol/L Chloride 101 (98-107) mmol/L Carbon Dioxide 28.5 (21.0-32.0) mmol/L Anion Gap 12.0 BUN 20.0 H (7.0-18.0) mg/dL Creatinine 1.31 H (0.55-1.02) mg/dL Est GFR ( Amer) 49 L (>=60 mL/min/1.73m^2) Est GFR (Non-Af Amer) 40 L (>=60 mL/min/1.73m^2) BUN/Creatinine Ratio 15.3 Glucose 113 H (74-106) mg/dL Lactate 2.6 H* (0.4-2.0) mmol/L Calcium 10.0 (8.5-10.1) mg/dL Total Bilirubin 1.0 (0.2-1.0) mg/dL AST 20 (15-37) U/L ALT 36 (14-59) U/L Alkaline Phosphatase 130 H (46-116) U/L Ammonia <10 L (11-32) umol/L Troponin I High Sens 11.0 (4.0-51.3) pg/mL Total Protein 7.2 (6.4-8.2) g/dL Albumin 3.6 (3.4-5.0) g/dL Globulin 3.6 g/dL Albumin/Globulin Ratio 1.0 TSH 1.804 (0.358-3.740) uIU/mL Urine Color Lt. yellow (YELLOW) Urine Clarity Clear (CLEAR) Urine pH 6.0 (5.0-9.0) Ur Specific [place] <=1.005 A (1.005-1.025) Urine Protein Negative (NEG/TRACE) mg/dL Urine Glucose (UA) Negative (NEGATIVE) mg/dL Urine Ketones Negative (NEGATIVE) mg/dL Urine Occult Blood Negative (NEGATIVE) Urine Nitrite Negative (NEGATIVE) Urine Bilirubin Negative (NEGATIVE) Urine Urobilinogen 0.2 (0.2-1.0) EU/dL Ur Leukocyte Esterase Negative (NEGATIVE) Urine RBC None seen (0-2) #/HPF Urine WBC None seen (NONE SEEN) #/HPF Ur Squamous Epith Cells Rare (NONE/RARE) #/LPF Urine Crystals None seen (None Seen) #/HPF Urine Bacteria Trace A (NONE SEEN) #/HPF Urine Casts None seen (NONE SEEN) #/LPF Urine Mucus None seen (NONE SEEN) Ur Culture Indicated? No Acetaminophen <2.0 L (10.0-30.0) ug/mL Ethanol Quant <3 mg/dL ECG Data Attestation: I personally reviewed and interpreted this ECG as follows: (EKG interpretation. Artifact noted secondary to patient's shaking. Normal axis deviation. QTc of 392, nonspecific ST changes. Sinus bradycardia at 56 beats a minute. No other acute abnormality.) Discharge Plan Discharge Chief Complaint: Altered Mental Status Clinical Impression: Hypothermia, Hypercarbia, Confusion Patient Disposition: Admitted as Observation Time of Disposition Decision: 09:29 Condition: Fair
[2024-10-08 08:36] LABS: Basophils Percent Auto 0.4 % (0.2-2.0); Eosinophils Absolute Auto 0.1 10^3/uL (0.0-0.7); Eosinophils Percent Auto 1.5 % (0.9-7.0); Hematocrit 33.6 % (36.0-48.0); Hemoglobin 11.3 g/dL (12.0-16.0); Immature Granulocytes Abs Auto 0.01 10^3/uL (0.00-0.03); Immature Granulocytes Pct Auto 0.2 % (0.0-0.5); Lymphocytes Absolute Auto 1.1 10^3/uL (1.2-3.8); Lymphocytes Percent Auto 23.9 % (20.5-60.0); Mean Corpuscular HGB Conc 33.6 g/dL (29.9-35.2); Mean Corpuscular Hemoglobin 30.9 pg (26.7-34.0); Mean Corpuscular Volume 91.8 fL (81.0-99.0); Mean Platelet Volume 9.9 fL (9.5-13.5); Monocytes Absolute Auto 0.3 10^3/uL (0.3-0.8); Monocytes Percent Auto 5.4 % (1.7-12.0); Neutrophils Absolute Auto 3.2 10^3/uL (1.4-6.5); Neutrophils Percent Auto 68.6 % (43.0-75.0); Platelet Count 145 10^3/uL (150-450); Red Blood Count 3.66 10^6/uL (4.20-5.40); Red Cell Distribution Width 13.5 % (11.0-15.0); White Blood Count 4.7 10^3/uL (4.0-11.0)
[2024-10-08 08:39] LABS: PCO2 VBG 51.4 mmHg (40.0-52.0); pH VBG 7.368 (7.330-7.430)
[2024-10-08 08:46] LABS: Ammonia <10 umol/L (11-32)
[2024-10-08 09:00] LABS: Thyroid Stimulating Hormone 1.804 uIU/mL (0.358-3.740)
[2024-10-08 09:02] LABS: BUN Creatinine Ratio 15.3; Carbon Dioxide 28.5 mmol/L (21.0-32.0); Chloride 101 mmol/L (98-107); Estimated GFR (African America 49 (>=60 mL/min/1.73m^2); Estimated GFR (Non-African Ame 40 (>=60 mL/min/1.73m^2); Glucose 113 mg/dL (74-106); Potassium 3.5 mmol/L (3.5-5.1); Sodium 138 mmol/L (136-145)
[2024-10-08 09:03] LABS: Alanine Aminotransferase 36 U/L (14-59); Albumin Level 3.6 g/dL (3.4-5.0); Alkaline Phosphatase 130 U/L (46-116); Aspartate Amino Transferase 20 U/L (15-37); Globulin 3.6 g/dL; Total Protein 7.2 g/dL (6.4-8.2)
[2024-10-08 09:05] LABS: Lactate/Lactic Acid 2.6 mmol/L (0.4-2.0)
[2024-10-08 09:09] LABS: Bilirubin Urine NEGATIVE (NEGATIVE); Blood Urine NEGATIVE (NEGATIVE); Clarity Urine CLEAR (CLEAR); Color Urine LT. YELLOW (YELLOW); Glucose Urine UA NEGATIVE (NEGATIVE); Ketones Urine NEGATIVE (NEGATIVE); Leukocyte Esterase Urine NEGATIVE (NEGATIVE); Nitrite Urine NEGATIVE (NEGATIVE); Protein Urine NEGATIVE (NEG/TRACE); Specific Gravity Urine <=1.005 (1.005-1.025); Urobilinogen Urine 0.2 EU/dL (0.2-1.0)
[2024-10-08] MEDS: 0.9 % SODIUM CHLORIDE 1,000 ML 1000 ML IV ×2 (09:14→10:56)
[2024-10-08 09:17] LABS: Bacteria Urine TRACE #/HPF (NONE SEEN); Cast Seen? NONE SEEN #/LPF (NONE SEEN); Crystals Seen? None Seen #/HPF (None Seen); Mucus Urine NONE SEEN (NONE SEEN); RBC Urine NONE SEEN #/HPF (0-2); Squamous Epithelial Cell Urine RARE #/LPF (NONE/RARE); Urine Culture Indicated NO; WBC Urine NONE SEEN #/HPF (NONE SEEN)
[2024-10-08 09:24] LABS: Acetaminophen <2.0 ug/mL (10.0-30.0); Ethanol <3 mg/dL
[2024-10-08 09:41] LABS: Amphetamine Screen Urine NEGATIVE (NEGATIVE); Barbiturates Screen Urine NEGATIVE (NEGATIVE); Benzodiazepines Screen Urine NEGATIVE (NEGATIVE); Buprenorphine Screen Urine NEGATIVE (NEGATIVE); Cannabinoid Screen Urine NEGATIVE (NEGATIVE); Cocaine Screen Urine NEGATIVE (NEGATIVE); Methadone Screen Urine NEGATIVE (NEGATIVE); Methamphetamines Screen Urine NEGATIVE (NEGATIVE); Opiate Screen Urine NEGATIVE (NEGATIVE); Oxycodone Screen Urine NEGATIVE (NEGATIVE); Phencyclidine Screen Urine NEGATIVE (NEGATIVE); Tricyclic Antidepressant Urine POSITIVE (NEGATIVE)
[2024-10-08] MEDS: LEVOFLOXACIN IN DEXTROSE 5 % 750 MG/150 ML PREMIX 100 MG IV (09:52)
[2024-10-08 09:55] LABS: Influenza Virus A Antigen Negative; Influenza Virus B Antigen Negative; Internal Control Within Normal Limits; SARS-CoV-2 Ag NEGATIVE (NEGATIVE)
--- NOTE | 2024-10-08 11:49 | P.HP_ITS ---
HPI H&P: HPI History of Present Illness Chief complaint: ALTERED MENTAL STATUS, HYPOTHERMIA, CONFUSION Narrative: 68-year-old female with history of catatonic schizophrenia, atrial fibrillation, hypothyroidism, history of breast cancer currently in remission was brought over to ED by his spouse who is also her primary caregiver for unusual behavior/change in mental status that has been ongoing for about 4 weeks. I was unable to get any meaningful information out of the patient and most of the information was obtained from patient's spouse. According to him, for past couple of weeks, patient has had a flat affect, she is awake and alert and appears that she is understanding when he talks to her but does not seem to respond back as much. She has prior history of catatonic schizophrenia and this is not the first time she has acted this way. According to him, she has been st able from [facility] point a few with no medication changes or hospital admission for at least a year. Workup in ED revealed patient was hypothermic but other than that at no acute change or metabolic abnormality was noted on workup except for mild lactic acidosis. She was started on IV hydration and empirically treated with IV Levaquin. There is no report of fever, respiratory symptoms or GI symptoms. There are no localizing signs or symptoms to suggest/point towards a source of infection. Opioid HPI Opioid Management Most Recent Pain and Opioid Data: Last Pain Assessment Today, 11:00 Last ORT Total Score 2 Today, 10:51 Last ORT Risk Category Low Risk Today, 10:51 Ur Phencyclidine Scrn, (NEGATIVE) Negative Today, 08:58 Review of Systems ROS Status of ROS unobtainable due to mental status (But does not appear to be in any distress or pain.) [facility] Medical History (Updated 10/08/24 @ 12:02 by Shaikh Bharti MD) CKD stage 3a, GFR 45-59 ml/min ?N18.31 - Chronic kidney disease, stage 3a (ICD-10) Schizophrenia, catatonic type ?F20.2 - Catatonic schizophrenia (ICD-10) History of admission to inpatient psychiatry department ?Z86.59 - Personal history of other mental and behavioral disorders (ICD-10) Palpitations ?R00.2 - Palpitations (ICD-10) History of blood transfusion ?Z92.89 - Personal history of other medical treatment (ICD-10) Anemia ?D64.9 - Anemia, unspecified (ICD-10) Urinary tract infection ?N39.0 - Urinary tract infection, site not specified (ICD-10) Falls ?W19.XXXA - Unspecified fall, initial encounter (ICD-10) Atrial fibrillation ?I48.91 - Unspecified atrial fibrillation (ICD-10) Uterine fibroid ?D25.9 - Leiomyoma of uterus, unspecified (ICD-10) Paranoid schizophrenia ?F20.0 - Paranoid schizophrenia (ICD-10) IBS (irritable bowel syndrome) ?K58.9 - Irritable bowel syndrome without diarrhea (ICD-10) Vitamin D deficiency ?E55.9 - Vitamin D deficiency, unspecified (ICD-10) Osteopenia ?M85.80 - Other specified disorders of bone density and structure, unspecified site (ICD-10) Sleep apnea ?G47.30 - Sleep apnea, unspecified (ICD-10) Major depression with psychotic features ?F32.3 - Major depressive disorder, single episode, severe with psychotic features (ICD-10) Memory loss ?R41.3 - Other amnesia (ICD-10) Inversion, nipple ?N64.59 - Other signs and symptoms in breast (ICD-10) Hypothyroid ?E03.9 - Hypothyroidism, unspecified (ICD-10) Hyperlipidemia ?E78.5 - Hyperlipidemia, unspecified (ICD-10) Hypertension ?I10 - Essential (primary) hypertension (ICD-10) Fatigue ?R53.83 - Other fatigue (ICD-10) Anxiety ?F41.9 - Anxiety disorder, unspecified (ICD-10) DCIS (ductal carcinoma in situ) ?D05.10 - Intraductal carcinoma in situ of unspecified breast (ICD-10) Invasive ductal carcinoma of breast ?C50.919 - Malignant neoplasm of unspecified site of unspecified female breast (ICD-10) Osteoporosis ?M81.0 - Age-related osteoporosis without current pathological fracture (ICD- 10) Depression with anxiety ?F41.8 - Other specified anxiety disorders (ICD-10) Arthritis ?M19.90 - Unspecified osteoarthritis, unspecified site (ICD-10) GERD (gastroesophageal reflux disease) ?K21.9 - Gastro-esophageal reflux disease without esophagitis (ICD-10) Arrhythmia ?I49.9 - Cardiac arrhythmia, unspecified (ICD-10) Schizophrenia ?F20.9 - Schizophrenia, unspecified (ICD-10) Surgical History (Updated 10/08/23 @ 09:10 by Zee Crowe NP) Hx of tonsillectomy ?Z90.89 - Acquired absence of other organs (ICD-10) History of cataract extraction with lens replacement H/O cataract extraction ?Z98.49 - Cataract extraction status, unspecified eye (ICD-10) H/O breast biopsy ?Z98.890 - Other specified postprocedural states (ICD-10) S/P breast biopsy, right ?Z98.890 - Other specified postprocedural states (ICD-10) H/O exploratory laparotomy ?Z98.890 - Other specified postprocedural states (ICD-10) History of adenoidectomy ?Z90.89 - Acquired absence of other organs (ICD-10) HX: benign breast biopsy ?Z98.890 - Other specified postprocedural states (ICD-10) S/P lumpectomy, left breast ?Z98.890 - Other specified postprocedural states (ICD-10) H/O colonoscopy ?Z98.890 - Other specified postprocedural states (ICD-10) Family History (Updated 10/08/23 @ 09:22 by Zee Crowe NP) Other ALS (amyotrophic lateral sclerosis) Dementia Family history of breast cancer Family history of myocardial infarction Social History (Updated 12/17/23 @ 07:22 by Malissa Evangelista) Within the past year, how often did you have a drink containing alcohol: monthly or less Smoking status: Never smoker Non-prescribed substance use: denies use Highest level of school completed/degree received: Bachelor's degree Meds Home Medications and Allergies Home Medications ?Medication ?Instructions ?Recorded ?Confirmed ?Type alendronate 70 mg tablet 70 mg PO QWEEK 05/05/2302/24 History haloperidol 5 mg tablet 5 mg PO BID 05/05/23 5 History levothyroxine 50 mcg capsule 50 mcg PO DAILY 05/05/23 10/08/24 History quetiapine 25 mg tablet (Seroquel) 50 mg PO .every aldo alexy 05/05/23 10/08/24 History ergocalciferol (vitamin D2) 1,250 1,250 mcg PO QWEEK 0 07/28/23 10/08/24 History mcg (50,000 unit) capsule (Vitamin D2) hydrocodone 5 mg-acetaminophen 325 1 tab PO Q6H PRN Pa in Scale 4-6 12/17/23 10/08/24 Rx mg tablet #14 tabs Allergies Allergy/AdvReac Type Severity Reaction Status Date / Time amoxicillin Allergy Hives Verified 12/03/23 11:20 cephalexin (From Keflex) Allergy Hives Verified 12/03/23 11:20 Sulfa (Sulfonamide Allergy Hives Verified 12/03/23 11:20 Antibiotics) Exam Constitutional Vital Signs, click to edit/add: Last Vital Signs Temp 90.8 F L 10/08/24 10:51 Pulse 68 10/08/24 10:51 Resp 16 10/08/24 10:51 BP 115/70 10/08/24 10:51 Pulse Ox 97 10/08/24 10:51 O2 Del Method Nasal Cannula 10/08/24 10:51 O2 Flow Rate 2 10/08/24 10:51 Common normals: no apparent distress and average body habitus Exam limitations: altered mental status General appearance: cooperative and comfortable Orientation/consciousness: Yes confused and Yes lethargic Respiratory Common normals: normal respiratory effort, no use of accessory muscles and clear to auscultation bilaterally Cardio Common normals: regular rate, regular rhythm, S1 normal heart sound and S2 normal heart sound GI Common normals: Normal to inspection, nondistended, normoactive bowel sounds present, soft to palpation and non-tender Extremity Common normals: normal to inspection and full ROM Neuro Common normals: moves all extremities, no focal motor deficits and no sensory deficits noted Meningeal signs: no meningeal signs Speech: abnormal speech Gait (neuro): unable to assess gait Psych Appearance: well kempt Attitude: withdrawn Speech: minimal and slow Mood and affect: flat affect Thought process: incoherent and confused Results Labs Labs: Short CBC 10/08/24 Range/Units 08:23 WBC 4.7 (4.0-11.0) 10^3/uL Hgb 11.3 L (12.0-16.0) g/dL Hct 33.6 L (36.0-48.0) % Plt Count 145 L (150-450) 10^3/uL BMP 10/08/24 08:23 Sodium 138 Potassium 3.5 Chloride 101 Carbon Dioxide 28.5 BUN 20.0 H Creatinine 1.31 H Glucose 113 H Calcium 10.0 Liver Function 10/08/24 Range/Units 08:23 Total Bilirubin 1.0 (0.2-1.0) mg/dL AST 20 (15-37) U/L ALT 36 (14-59) U/L Alkaline Phosphatase 130 H (46-116) U/L Albumin 3.6 (3.4-5.0) g/dL Urine 10/08/24 Range/Units 08:58 Urine Color Lt. yellow (YELLOW) Urine Clarity Clear (CLEAR) Urine pH 6.0 (5.0-9.0) Ur Specific [place] <=1.005 A (1.005-1.025) Urine Protein Negative (NEG/TRACE) mg/dL Urine Glucose (UA) Negative (NEGATIVE) mg/dL ABG ABG results: 10/08/24 08:23 VBG pH 7.368 VBG pCO2 51.4 Assessment and Plan Assessment and Plan (1) Hypothermia: Assessment and Plan: Unclear etiology. Currently has blu hugger in place. TSH normal. Infectious workup sent. Closely monitor. Qualifiers: Encounter type: subsequent encounter Qualified Code(s): T68.XXXD - Hypothermia, subsequent encounter (2) Schizophrenia, catatonic type: Assessment and Plan: Suspect change in mental status secondary to acute catatonia. Will give a trial of Valium. Continue with home medications. Patient is calm/comfortable. Once medically cleared, she will likely need inpatient psych admission or evaluation. (3) Atrial fibrillation: Assessment and Plan: In normal sinus rhythm Qualifiers: Atrial fibrillation type: paroxysmal Qualified Code(s): I48.0 - Paroxysmal atrial fibrillation (4) Hypothyroid: Assessment and Plan: TSH at goal. Continue with levothyroxine. Qualifiers: Hypothyroidism type: unspecified Qualified Code(s): E03.9 - Hypothyroidism, unspecified (5) CKD stage 3a, GFR 45-59 ml/min: Assessment and Plan: Renal function at baseline. Monitor. (6) Lactic acid acidosis: Assessment and Plan: On IV fluids. Recheck lactate.
[2024-10-08 12:01] LABS: Lactate/Lactic Acid 0.7 mmol/L (0.4-2.0)
[2024-10-08] MEDS: LACTATED RINGER'S SOLUTION 1,000 ML 100 ML IV ×2 (12:02→22:25)
[2024-10-08] MEDS: ENOXAPARIN SODIUM 40 MG/0.4 ML SYRINGE SUBQ (12:03)
[2024-10-08] MEDS: LORAZEPAM 2 MG/ML VIAL IV (13:08)
--- NOTE | 2024-10-08 14:20 | PC.NURSE ---
LATE ENTRY FOR 1420 Dr. Hay notified of pt being rigid when turning and obtunded when working with pt. Discussed the possibility to send pt to another hospital for higher care. Care discussed with Dr. Hay and EUGENIA of med-surg Nasra Elmore RN. Dr. Hay told RN that he would continue care here and pt does not need sent to another hospital.
[2024-10-08 15:43] LABS: ABG PCO2 44.9 mmHg (35.0-45.0); Allen Test POSITIVE (POSITIVE); Base Excess ABG 2.3 mmol/L (-2.0-2.0); HCO3 ABG 27.2 mmol/L (22.0-26.0); Liters per Minute 2; Oxygen Saturation ABG 98.8 %; Puncture Site RR; pH ABG 7.392 (7.350-7.450)
--- NOTE | 2024-10-08 16:39 | PC.NURSE ---
Teleneuro consult called at [phone].
[2024-10-09] VITALS (8 sets, daily range): BP systolic 128–152; BP diastolic 53–90; PULSE 76–100; TEMP 36.3–37.4; O2SAT 94–97
[2024-10-09 05:51] LABS: Hematocrit 30.8 % (36.0-48.0); Hemoglobin 10.1 g/dL (12.0-16.0); Mean Corpuscular HGB Conc 32.8 g/dL (29.9-35.2); Mean Corpuscular Hemoglobin 30.5 pg (26.7-34.0); Mean Corpuscular Volume 93.1 fL (81.0-99.0); Mean Platelet Volume 10.3 fL (9.5-13.5); Platelet Count 139 10^3/uL (150-450); Red Blood Count 3.31 10^6/uL (4.20-5.40); White Blood Count 6.9 10^3/uL (4.0-11.0)
[2024-10-09 06:06] LABS: Alanine Aminotransferase 28 U/L (14-59); Albumin Globulin Ratio 0.8; Albumin Level 2.8 g/dL (3.4-5.0); Alkaline Phosphatase 110 U/L (46-116); Aspartate Amino Transferase 17 U/L (15-37); BUN Creatinine Ratio 11.7; Calcium 8.9 mg/dL (8.5-10.1); Chloride 107 mmol/L (98-107); Estimated GFR (African America 43 (>=60 mL/min/1.73m^2); Estimated GFR (Non-African Ame 36 (>=60 mL/min/1.73m^2); Globulin 3.3 g/dL; Glucose 83 mg/dL (74-106); Sodium 140 mmol/L (136-145); Total Protein 6.1 g/dL (6.4-8.2)
[2024-10-09 06:37] LABS: Basophils Abs Manual 0.06 10^3/uL (0.00-0.10); Lymphocytes Absolute Manual 0.55 10^3/uL (1.20-3.80); Monocytes Absolute Manual 0.62 10^3/uL (0.30-0.80); Segmented Neut Absolute Manual 5.65 10^3/uL (1.4-6.5)
[2024-10-09] MEDS: LACTATED RINGER'S SOLUTION 1,000 ML 100 ML IV ×2 (07:41→16:50)
[2024-10-09] MEDS: ENOXAPARIN SODIUM 40 MG/0.4 ML SYRINGE SUBQ (08:31)
--- NOTE | 2024-10-09 08:51 | PM.PN ---
Progress Note: Subjective Subjective Interval history: Patient resting. at bedside. She had a similar episode about 2 years ago. He said she started acting more forgetful, eating salsa with a spoon, sleeping more during the day. She also has become more forgetful, and weak over the last week. She was exercising about 3 times a week and going to appointments until 1 week ago. He denies any recent illness or medication changes. Doctors have decreased her Haloperidol and seroquel. She also had a recent MRI. I have discussed with him that work up so far has been negative. TSH was normal, CT head, MRI Head normal. UA negative and chest X-ray negative. Will get Teleneuro consult today. WBC's were 6.9 and lactate 0.7, patient is no longer hypothermic and temp is 98 degrees. She is getting Levaquin IV and fluids. Exam Narrative Exam Narrative: General: Patient opens eyes to name only, does not speak Skin: no visible rashes, or ulcers Head: atraumatic, acephalic Eyes: PERRLA, no nystagmus present, conjunctiva clear, no scleral icterus Neck: no masses palpated Heart: Normal rate and rhythm, no murmurs/rubs/gallops Lungs: no audible wheezes, crackles and normal breath sounds all lung hurtado Abdomen: Normal audible bowel sounds, no distension, No palpable masses, no organomegaly, no rebound/guarding/ or rigidity Musculoskeletal: no swelling bilateral lower extremities Neuro: cannot assess due to patient's current mental status Constitutional Vital Signs, click to edit/add: Last Vital Signs Temp 99.3 F 10/09/24 06:35 Pulse 96 H 10/09/24 04:30 Resp 18 10/09/24 04:30 BP 128/76 10/09/24 04:30 Pulse Ox 96 10/09/24 04:30 O2 Del Method Nasal Cannula 10/09/24 04:30 O2 Flow Rate 2 10/09/24 04:30 Progress Note: Objective Labs Labs: Short CBC 10/09/24 Range/Units 05:11 WBC 6.9 (4.0-11.0) 10^3/uL Hgb 10.1 L (12.0-16.0) g/dL Hct 30.8 L (36.0-48.0) % Plt Count 139 L (150-450) 10^3/uL BMP 10/08/24 10/09/24 08:23 05:11 Sodium 138 140 Potassium 3.5 4.0 Chloride 101 107 Carbon Dioxide 28.5 28.0 BUN 20.0 H 17.0 Creatinine 1.31 H 1.45 H Glucose 113 H 83 Calcium 10.0 8.9 Liver Function 10/08/24 10/09/24 Range/Units 08:23 05:11 Total Bilirubin 1.0 1.0 (0.2-1.0) mg/dL AST 20 17 (15-37) U/L ALT 36 28 (14-59) U/L Alkaline Phosphatase 130 H 110 (46-116) U/L Albumin 3.6 2.8 L (3.4-5.0) g/dL Urine 10/08/24 Range/Units 08:58 Urine Color Lt. yellow (YELLOW) Urine Clarity Clear (CLEAR) Urine pH 6.0 (5.0-9.0) Ur Specific [place] <=1.005 A (1.005-1.025) Urine Protein Negative (NEG/TRACE) mg/dL Urine Glucose (UA) Negative (NEGATIVE) mg/dL Progress Note: A&P Assessment and Plan (1) Hypothermia: Assessment and Plan: Unclear etiology. off blu hugger. TSH normal. Infectious workup sent and so far normal, blood culture pending. Closely monitor. Qualifiers: Encounter type: subsequent encounter Qualified Code(s): T68.XXXD - Hypothermia, subsequent encounter (2) Schizophrenia, catatonic type: Assessment and Plan: Suspect change in mental status secondary to acute catatonia. Will give a trial of Valium. Continue with home medications. Patient is calm/comfortable. Once medically cleared, she will likely need inpatient psych admission or evaluation and possible transfer (3) Atrial fibrillation: Assessment and Plan: In normal sinus rhythm Qualifiers: Atrial fibrillation type: paroxysmal Qualified Code(s): I48.0 - Paroxysmal atrial fibrillation (4) Hypothyroid: Assessment and Plan: TSH at goal. Continue with levothyroxine. Qualifiers: Hypothyroidism type: unspecified Qualified Code(s): E03.9 - Hypothyroidism, unspecified (5) CKD stage 3a, GFR 45-59 ml/min: Assessment and Plan: Renal function at baseline. Monitor. (6) Lactic acid acidosis: Assessment and Plan: resolved with IVF Plan Patient is a full code Teleneuro evaluation today, Continue with IVF and levaquin. Inpatient and expected to stay 1-2 more days Urinary Catheter Management Urinary Catheter Management Pure Wick: Cath placed during this visit: no
--- NOTE | 2024-10-09 10:04 | PC.NURSE ---
Teleneuro Access called to check on consult. Informed group has 24 hrs to respond. Call back this afternoon if we dont hear from [employer].
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
--- NOTE | 2024-10-09 22:13 | PC.NURSE ---
Nurse went in room to ask patient if she would take her meds. She looked at nurse and said something If my told you. . Nurse asked patient can u take your pills patient said no .
[2024-10-10] MEDS: LACTATED RINGER'S SOLUTION 1,000 ML 100 ML IV ×3 (02:25→21:12)
[2024-10-10 05:38] VITALS: BP 150/90; PULSE 72; TEMP 36.7; O2SAT 92
[2024-10-10 06:09] LABS: Basophils Percent Auto 0.4 % (0.2-2.0); Eosinophils Percent Auto 0.4 % (0.9-7.0); Hemoglobin 10.3 g/dL (12.0-16.0); Immature Granulocytes Abs Auto 0.04 10^3/uL (0.00-0.03); Immature Granulocytes Pct Auto 0.5 % (0.0-0.5); Lymphocytes Absolute Auto 0.9 10^3/uL (1.2-3.8); Lymphocytes Percent Auto 12.7 % (20.5-60.0); Mean Corpuscular HGB Conc 33.2 g/dL (29.9-35.2); Mean Corpuscular Hemoglobin 30.9 pg (26.7-34.0); Mean Corpuscular Volume 93.1 fL (81.0-99.0); Mean Platelet Volume 9.9 fL (9.5-13.5); Monocytes Absolute Auto 0.7 10^3/uL (0.3-0.8); Monocytes Percent Auto 9.1 % (1.7-12.0); Neutrophils Absolute Auto 5.6 10^3/uL (1.4-6.5); Neutrophils Percent Auto 76.9 % (43.0-75.0); Platelet Count 136 10^3/uL (150-450); Red Blood Count 3.33 10^6/uL (4.20-5.40); Red Cell Distribution Width 13.6 % (11.0-15.0); White Blood Count 7.3 10^3/uL (4.0-11.0)
[2024-10-10 06:34] LABS: Alanine Aminotransferase 25 U/L (14-59); Albumin Globulin Ratio 0.9; Alkaline Phosphatase 111 U/L (46-116); Anion Gap 11.9; Aspartate Amino Transferase 18 U/L (15-37); Bilirubin Total 1.5 mg/dL (0.2-1.0); Calcium 9.3 mg/dL (8.5-10.1); Carbon Dioxide 27.8 mmol/L (21.0-32.0); Chloride 105 mmol/L (98-107); Estimated GFR (African America 51 (>=60 mL/min/1.73m^2); Estimated GFR (Non-African Ame 42 (>=60 mL/min/1.73m^2); Globulin 3.4 g/dL; Glucose 87 mg/dL (74-106); Potassium 3.7 mmol/L (3.5-5.1); Sodium 141 mmol/L (136-145); Total Protein 6.4 g/dL (6.4-8.2)
[2024-10-10] MEDS: LEVOFLOXACIN IN DEXTROSE 5 % 750 MG/150 ML PREMIX 100 MG IV (08:00)
--- NOTE | 2024-10-10 08:28 | PM.PN ---
Progress Note: Subjective Subjective Interval history: Patient resting. at bedside. I have discussed with him that work up so far has been negative. TSH was normal, CT head, MRI Head normal. UA negative, UDS normal, and chest X-ray negative. Teleneuro consult yesterday had no new suggestions but plans to check in with patient today. WBC's were 6.9 and lactate 0.7, patient is no longer hypothermic and temp is 98 degrees. She is getting Levaquin IV and fluids. She does answer questions today and says she would like to try some peach yogurt. This is improvement since yesterday. Exam Narrative Exam Narrative: General: Patient opens eyes to name only, and answers some questions Skin: no visible rashes, or ulcers Head: atraumatic, acephalic Eyes: PERRLA, no nystagmus present, conjunctiva clear, no scleral icterus Neck: no masses palpated Heart: Normal rate and rhythm, no murmurs/rubs/gallops Lungs: no audible wheezes, crackles and normal breath sounds all lung hurtado Abdomen: Normal audible bowel sounds, no distension, No palpable masses, no organomegaly, no rebound/guarding/ or rigidity Musculoskeletal: no swelling bilateral lower extremities Neuro: cannot assess due to patient's current mental status Constitutional Vital Signs, click to edit/add: Last Vital Signs Temp 98.0 F 10/10/24 05:38 Pulse 72 10/10/24 05:38 Resp 20 10/10/24 05:38 BP 150/90 H 10/10/24 05:38 Pulse Ox 92 L 10/10/24 05:38 O2 Del Method Nasal Cannula 10/10/24 05:38 O2 Flow Rate 2 10/10/24 05:38 Progress Note: Objective Labs Labs: Short CBC 10/10/24 Range/Units 05:58 WBC 7.3 (4.0-11.0) 10^3/uL Hgb 10.3 L (12.0-16.0) g/dL Hct 31.0 L (36.0-48.0) % Plt Count 136 L (150-450) 10^3/uL BMP 10/10/24 05:58 Sodium 141 Potassium 3.7 Chloride 105 Carbon Dioxide 27.8 BUN 14.0 Creatinine 1.27 H Glucose 87 Calcium 9.3 Liver Function 10/10/24 Range/Units 05:58 Total Bilirubin 1.5 H (0.2-1.0) mg/dL AST 18 (15-37) U/L ALT 25 (14-59) U/L Alkaline Phosphatase 111 (46-116) U/L Albumin 3.0 L (3.4-5.0) g/dL Progress Note: A&P Assessment and Plan (1) Hypothermia: Assessment and Plan: Unclear etiology. off blu hugger. TSH normal. Infectious workup sent and so far normal, blood culture pending. Closely monitor. But normal Temp for the last 24 hours Qualifiers: Encounter type: subsequent encounter Qualified Code(s): T68.XXXD - Hypothermia, subsequent encounter (2) Schizophrenia, catatonic type: Assessment and Plan: Suspect change in mental status secondary to acute catatonia or worsening schizophrenia. Continue with home medications. Patient is calm/comfortable. Once medically cleared, she will may need inpatient psych admission or evaluation and possible transfer (3) Atrial fibrillation: Assessment and Plan: In normal sinus rhythm, on Eliquis Qualifiers: Atrial fibrillation type: paroxysmal Qualified Code(s): I48.0 - Paroxysmal atrial fibrillation (4) Hypothyroid: Assessment and Plan: TSH at goal. Continue with levothyroxine. Qualifiers: Hypothyroidism type: unspecified Qualified Code(s): E03.9 - Hypothyroidism, unspecified (5) CKD stage 3a, GFR 45-59 ml/min: Assessment and Plan: Renal function at baseline. Monitor. (6) Lactic acid acidosis: Assessment and Plan: resolved with IVF Plan Patient is a full code continue IVF, encourage some oral intake, PT/OT evaluations, If no further Neuro recs and little to no improvement in mental status, will consider transfer to inpatient psych; continue Levaquin IV Urinary Catheter Management Urinary Catheter Management Pure Wick: Cath placed during this visit: yes Urethral indwelling: Yes Reason for continuing: acute urinary retention Insertion date: 10/10/24 Insertion time: 02:00
[2024-10-10] MEDS: ONDANSETRON PF 4 MG/2 ML VIAL IV (10:37)
[2024-10-10 11:32] VITALS: O2SAT 92
[2024-10-10 11:41] VITALS: BP 126/80; PULSE 87; TEMP 36.7; O2SAT 92
--- NOTE | 2024-10-10 12:41 | PC.NURSE ---
Teleneuro staff Alivia called to check on pt. Status update given. Pt unable to follow commands for an assessment on camera. States theywere just checking to make sure pt condition had not worsened overnight. Will check back tomorrow on status.
[2024-10-10] MEDS: QUETIAPINE FUMARATE 25 MG TABLET 50 MG PO (18:47)
[2024-10-10] MEDS: Letrozole 2.5 mg tablet 2.5 EACH PO (18:47)
[2024-10-10] MEDS: APIXABAN 5 MG TABLET PO (18:49)
[2024-10-10] MEDS: HALOPERIDOL 5 MG TABLET PO (18:49)
--- NOTE | 2024-10-10 18:56 | PC.NURSE ---
Pt agreeable to taking po meds..meds given in applesauce
[2024-10-10 19:19] VITALS: BP 114/71; PULSE 66; TEMP 36.5; O2SAT 92
[2024-10-10 20:00] VITALS: O2SAT 88
[2024-10-11] VITALS (8 sets, daily range): BP systolic 110–144; BP diastolic 66–88; PULSE 54–69; TEMP 36.3–36.7; O2SAT 91–96
--- NOTE | 2024-10-11 01:57 | PC.NURSE ---
Patient stated she was hungry and asked for oatmeal. Ate 100%. Oriented to Place, month and year. While bathing patient was able to lift arms on her own.
[2024-10-11] MEDS: LEVOTHYROXINE SODIUM 25 MCG TABLET 50 MCG PO (05:35)
[2024-10-11 06:31] LABS: Basophils Percent Auto 0.2 % (0.2-2.0); Eosinophils Absolute Auto 0.1 10^3/uL (0.0-0.7); Eosinophils Percent Auto 1.4 % (0.9-7.0); Hematocrit 28.7 % (36.0-48.0); Hemoglobin 9.7 g/dL (12.0-16.0); Immature Granulocytes Abs Auto 0.02 10^3/uL (0.00-0.03); Immature Granulocytes Pct Auto 0.2 % (0.0-0.5); Lymphocytes Absolute Auto 1.1 10^3/uL (1.2-3.8); Lymphocytes Percent Auto 11.5 % (20.5-60.0); Mean Corpuscular HGB Conc 33.8 g/dL (29.9-35.2); Mean Corpuscular Hemoglobin 31.4 pg (26.7-34.0); Mean Corpuscular Volume 92.9 fL (81.0-99.0); Mean Platelet Volume 9.8 fL (9.5-13.5); Monocytes Absolute Auto 0.8 10^3/uL (0.3-0.8); Monocytes Percent Auto 8.5 % (1.7-12.0); Neutrophils Absolute Auto 7.4 10^3/uL (1.4-6.5); Neutrophils Percent Auto 78.2 % (43.0-75.0); Platelet Count 127 10^3/uL (150-450); Red Blood Count 3.09 10^6/uL (4.20-5.40); Red Cell Distribution Width 13.7 % (11.0-15.0); White Blood Count 9.5 10^3/uL (4.0-11.0)
[2024-10-11 07:05] LABS: Alanine Aminotransferase 24 U/L (14-59); Albumin Globulin Ratio 0.8; Albumin Level 2.6 g/dL (3.4-5.0); Alkaline Phosphatase 105 U/L (46-116); Anion Gap 10.2; Aspartate Amino Transferase 20 U/L (15-37); BUN Creatinine Ratio 12.5; Bilirubin Total 1.5 mg/dL (0.2-1.0); Calcium 9.1 mg/dL (8.5-10.1); Carbon Dioxide 31.3 mmol/L (21.0-32.0); Chloride 107 mmol/L (98-107); Estimated GFR (African America 50 (>=60 mL/min/1.73m^2); Estimated GFR (Non-African Ame 41 (>=60 mL/min/1.73m^2); Globulin 3.3 g/dL; Glucose 92 mg/dL (74-106); Potassium 3.5 mmol/L (3.5-5.1); Sodium 145 mmol/L (136-145); Total Protein 5.9 g/dL (6.4-8.2)
[2024-10-11] MEDS: LACTATED RINGER'S SOLUTION 1,000 ML 100 ML IV ×2 (07:16→17:39)
--- NOTE | 2024-10-11 08:12 | PM.PN ---
Progress Note: Subjective Subjective Interval history: Patient is doing much better today. She is up in the Chair and is answer questions appropriately. She woke up at 3am this morning and ate a full breakfast per nursing staff. is at bedside. Patient is working with occupational therapy this morning. Hopefully she will work well with Physical Therapy today. Exam Narrative Exam Narrative: General: Patient opens eyes and answers some questions appropriately today, sitting in chair Skin: no visible rashes, or ulcers Head: atraumatic, acephalic Eyes: PERRLA, no nystagmus present, conjunctiva clear, no scleral icterus Neck: no masses palpated Heart: Normal rate and rhythm, no murmurs/rubs/gallops Lungs: no audible wheezes, crackles and normal breath sounds all lung hurtado Abdomen: Normal audible bowel sounds, no distension, No palpable masses, no organomegaly, no rebound/guarding/ or rigidity Musculoskeletal: no swelling bilateral lower extremities Constitutional Vital Signs, click to edit/add: Last Vital Signs Temp 97.6 F 10/11/24 04:00 Pulse 64 10/11/24 04:00 Resp 18 10/11/24 04:00 BP 115/74 10/11/24 04:00 Pulse Ox 94 L 10/11/24 04:00 O2 Del Method Nasal Cannula 10/11/24 04:00 O2 Flow Rate 2 10/11/24 04:00 Progress Note: Objective Labs Labs: Short CBC 10/11/24 Range/Units 06:22 WBC 9.5 (4.0-11.0) 10^3/uL Hgb 9.7 L (12.0-16.0) g/dL Hct 28.7 L (36.0-48.0) % Plt Count 127 L (150-450) 10^3/uL BMP 10/11/24 06:22 Sodium 145 Potassium 3.5 Chloride 107 Carbon Dioxide 31.3 BUN 16.0 Creatinine 1.28 H Glucose 92 Calcium 9.1 Liver Function 10/11/24 Range/Units 06:22 Total Bilirubin 1.5 H (0.2-1.0) mg/dL AST 20 (15-37) U/L ALT 24 (14-59) U/L Alkaline Phosphatase 105 (46-116) U/L Albumin 2.6 L (3.4-5.0) g/dL Progress Note: A&P Assessment and Plan (1) Hypothermia: Assessment and Plan: TSH normal. Infectious workup so far normal, blood culture negative, chest X-ray and Head CT negative. Temp for the last 48 hours. Continue empiric Levaquin. Will switch to oral once taking more by mouth. Qualifiers: Encounter type: subsequent encounter Qualified Code(s): T68.XXXD - Hypothermia, subsequent encounter (2) Schizophrenia, catatonic type: Assessment and Plan: Suspect change in mental status secondary to acute catatonia or worsening schizophrenia but much improvement of mental status today. Continue with home medications. Patient is calm/comfortable. Once medically stable, she may need inpatient psych admission or evaluation and possible transfer (3) Atrial fibrillation: Assessment and Plan: In normal sinus rhythm, on Eliquis Qualifiers: Atrial fibrillation type: paroxysmal Qualified Code(s): I48.0 - Paroxysmal atrial fibrillation (4) Hypothyroid: Assessment and Plan: TSH at goal. Continue with levothyroxine Qualifiers: Hypothyroidism type: unspecified Qualified Code(s): E03.9 - Hypothyroidism, unspecified (5) CKD stage 3a, GFR 45-59 ml/min: Assessment and Plan: Renal function at baseline. Monitor. (6) Lactic acid acidosis: Assessment and Plan: resolved with IVF Plan Patient is a full code PT/OT evaluations today, Final neurology recommendations, Patient is improving from yesterday but still very physically weak. Trying to sort out best plan for patient, inpatient psych or possibly assisted facility for rehab. Urinary Catheter Management Urinary Catheter Management Pure Wick: Cath placed during this visit: yes Urethral indwelling: Yes Reason for continuing: acute urinary retention Insertion date: 10/10/24 Insertion time: 14:55
[2024-10-11] MEDS: HALOPERIDOL 5 MG TABLET PO ×2 (08:57→20:02)
[2024-10-11] MEDS: APIXABAN 5 MG TABLET PO ×2 (08:57→20:02)
[2024-10-11] MEDS: Letrozole 2.5 mg tablet 2.5 EACH PO (08:59)
--- NOTE | 2024-10-11 10:01 | CM.NOTE ---
Rounds made with Dr. Hernandes. Dr. Hernandes reviews plan of care with and Jse. Await PT/OT consults.
--- NOTE | 2024-10-11 11:21 | SWNOTE1 ---
SW spoke to case management and pt's asked about pt going skilled. If she qualifies, he would like the [facility]. SW reached out to Niesha and Lonnie at [facility]. 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 They do have openings and will review the referral. Referral sent to [facility]. Referral included face sheet, ED note, H&P, provider notes, case management report, telenuero consult, nursing notes, diagnostic imaging, med list, and PT/OT notes.
--- NOTE | 2024-10-11 12:51 | SWNOTE1 ---
[facility] is able to accept and will start precert. SW updated nurse and doctor.
--- NOTE | 2024-10-11 14:03 | SWNOTE1 ---
SW also stopped in and spoke with pt's and updated him in regards to [facility]. Pt's is happy they are able to accept. He did tell SW about the onset of symptoms and the same occurrence back in 2021.
--- NOTE | 2024-10-11 14:04 | SWNOTE1 ---
Medicare Outpatient Observation Notice reviewed and discussed with patient's . Pt's verbalized understanding and SW signed the form that it was reviewed. Original given to patient and copy placed in patient?s chart.
[2024-10-11] MEDS: QUETIAPINE FUMARATE 25 MG TABLET 50 MG PO (20:02)
[2024-10-12] VITALS (8 sets, daily range): BP systolic 116–136; BP diastolic 70–82; PULSE 55–73; TEMP 34.9–36.6; O2SAT 90–96
[2024-10-12] MEDS: LACTATED RINGER'S SOLUTION 1,000 ML 100 ML IV (03:32)
--- NOTE | 2024-10-12 03:38 | PC.NURSE ---
Patient found to have a rectal temp of 95.3. Cuate carl
[2024-10-12] MEDS: LEVOTHYROXINE SODIUM 25 MCG TABLET 50 MCG PO (05:41)
[2024-10-12 06:11] LABS: Basophils Percent Auto 0.5 % (0.2-2.0); Eosinophils Absolute Auto 0.2 10^3/uL (0.0-0.7); Eosinophils Percent Auto 3.6 % (0.9-7.0); Hematocrit 26.9 % (36.0-48.0); Hemoglobin 8.8 g/dL (12.0-16.0); Immature Granulocytes Abs Auto 0.01 10^3/uL (0.00-0.03); Immature Granulocytes Pct Auto 0.2 % (0.0-0.5); Lymphocytes Absolute Auto 1.6 10^3/uL (1.2-3.8); Lymphocytes Percent Auto 25.9 % (20.5-60.0); Mean Corpuscular HGB Conc 32.7 g/dL (29.9-35.2); Mean Corpuscular Hemoglobin 30.7 pg (26.7-34.0); Mean Corpuscular Volume 93.7 fL (81.0-99.0); Mean Platelet Volume 10.3 fL (9.5-13.5); Monocytes Absolute Auto 0.5 10^3/uL (0.3-0.8); Monocytes Percent Auto 8.8 % (1.7-12.0); Neutrophils Absolute Auto 3.7 10^3/uL (1.4-6.5); Platelet Count 127 10^3/uL (150-450); Red Blood Count 2.87 10^6/uL (4.20-5.40); Red Cell Distribution Width 13.9 % (11.0-15.0)
[2024-10-12 06:29] LABS: Alanine Aminotransferase 24 U/L (14-59); Albumin Globulin Ratio 0.8; Albumin Level 2.4 g/dL (3.4-5.0); Alkaline Phosphatase 104 U/L (46-116); Anion Gap 10.2; Aspartate Amino Transferase 20 U/L (15-37); BUN Creatinine Ratio 15.1; Bilirubin Total 1.2 mg/dL (0.2-1.0); Carbon Dioxide 31.3 mmol/L (21.0-32.0); Chloride 110 mmol/L (98-107); Estimated GFR (African America 54 (>=60 mL/min/1.73m^2); Estimated GFR (Non-African Ame 45 (>=60 mL/min/1.73m^2); Globulin 3.2 g/dL; Glucose 83 mg/dL (74-106); Potassium 3.5 mmol/L (3.5-5.1); Sodium 148 mmol/L (136-145); Total Protein 5.6 g/dL (6.4-8.2)
[2024-10-12 07:25] LABS: Thyroid Stimulating Hormone 4.383 uIU/mL (0.358-3.740)
[2024-10-12 07:27] LABS: Lactate/Lactic Acid 0.8 mmol/L (0.4-2.0)
--- NOTE | 2024-10-12 08:24 | P.PN_ITS ---
Progress Note: Subjective Subjective Interval history: Patient sitting up in chair and eating breakfast. She appears in no acute distress and says she just feels hot and sweaty from Cuate Hugger. She has no other complaints. Eating and drinking well. Will stop fluids and transition to oral Levaquin today. Lactate normal, WBC's normal, vitals normal. Exam Narrative Exam Narrative: General: Patient answers questions appropriately today, sitting in chair Skin: no visible rashes, or ulcers Head: atraumatic, acephalic Eyes: PERRLA, no nystagmus present, conjunctiva clear, no scleral icterus Neck: no masses palpated Heart: Normal rate and rhythm, no murmurs/rubs/gallops Lungs: no audible wheezes, crackles and normal breath sounds all lung hurtado Abdomen: Normal audible bowel sounds, no distension, No palpable masses, no organomegaly, no rebound/guarding/ or rigidity Musculoskeletal: no swelling bilateral lower extremities Constitutional Vital Signs, click to edit/add: Last Vital Signs Temp 96.6 F L 10/12/24 05:48 Pulse 55 L 10/12/24 03:00 Resp 16 10/12/24 03:00 BP 136/73 10/12/24 03:00 Pulse Ox 91 L 10/12/24 03:00 O2 Del Method Room Air 10/12/24 03:00 O2 Flow Rate 2 10/11/24 22:05 Progress Note: Objective Labs Labs: Short CBC 10/12/24 Range/Units 06:02 WBC 6.0 (4.0-11.0) 10^3/uL Hgb 8.8 L (12.0-16.0) g/dL Hct 26.9 L (36.0-48.0) % Plt Count 127 L (150-450) 10^3/uL BMP 10/12/24 06:02 Sodium 148 H Potassium 3.5 Chloride 110 H Carbon Dioxide 31.3 BUN 18.0 Creatinine 1.19 H Glucose 83 Calcium 9.0 Liver Function 10/12/24 Range/Units 06:02 Total Bilirubin 1.2 H (0.2-1.0) mg/dL AST 20 (15-37) U/L ALT 24 (14-59) U/L Alkaline Phosphatase 104 (46-116) U/L Albumin 2.4 L (3.4-5.0) g/dL Progress Note: A&P Assessment and Plan (1) Hypothermia: Assessment and Plan: Patient with episode last night at 95.3, Cuate Hugger applied and temp came up to 96.6; No other vital sign changes, I have rechecked lactate level, normal, Blood cultures rechecked and UA pending. Also check Chest X-ray today. WBC's normal. TSH slightly elevated this morning. I am suspicious that her Schizophrenia is playing a role in her body's ability of thermoregulation and this is less likely early signs of sepsis. She is still empirically being treated with Levaquin IV despite no infectious source. I will transition to PO Levaquin for a total of 2 more days. Initial blood and urine cultures negative. I will also stop evening dose of Haloperidol and place on morning 5mg and will continue Seroquel 50mg at night time only. This medication interaction could also be contributing to her hypothermia. Qualifiers: Encounter type: subsequent encounter Qualified Code(s): T68.XXXD - Hypothermia, subsequent encounter (2) Schizophrenia: Assessment and Plan: Patient with initial presentation of Catatonia, but since has been very respondent. Continue Haloperidol, Seroquel but adjust haloperidol dosing as above Qualifiers: Schizophrenia type: unspecified Qualified Code(s): F20.9 - Schizophrenia, unspecified (3) Atrial fibrillation: Assessment and Plan: Currently in NSR, on Eliquis Qualifiers: Atrial fibrillation type: paroxysmal Qualified Code(s): I48.0 - Paroxysmal atrial fibrillation (4) Hypothyroid: Assessment and Plan: rechecked TSH this morning due to episode of hypothermia last night. TSH elevated to 4.3 today, I have increased levothyroxine to 100mcg daily. Qualifiers: Hypothyroidism type: unspecified Qualified Code(s): E03.9 - Hypothy roidism, unspecified (5) CKD stage 3a, GFR 45-59 ml/min: Assessment and Plan: cr 1.19 (6) Lactic acid acidosis: Assessment and Plan: I rechecked lactate level this morning due to hypothermia and lactate normal 0.8 (7) Weakness generalized: Assessment and Plan: continue to work with PT/OT and would benefit from rehab facility at discharge, she Has been approved to go to the [facility]. (8) DCIS (ductal carcinoma in situ): Assessment and Plan: continue Letrozole Qualifiers: Laterality: unspecified laterality Qualified Code(s): D05.10 - Intraductal carcinoma in situ of unspecified breast Plan Patient is a full code She is on Eliquis Patient has been accepted at SNF for rehab, If chest x-ray normal, and temp remains stable today without intervention, and tolerates medication change, probable discharge to the [facility] this evening or tomorrow. Urinary Catheter Management Urinary Catheter Management Pure Wick: Cath placed during this visit: yes Urethral indwelling: Yes Reason for continuing: acute urinary retention Insertion date: 10/10/24 Insertion time: 14:55
[2024-10-12] MEDS: APIXABAN 5 MG TABLET PO ×2 (08:39→21:03)
[2024-10-12] MEDS: Letrozole 2.5 mg tablet 2.5 EACH PO (08:39)
[2024-10-12] MEDS: HALOPERIDOL 5 MG TABLET PO (08:39)
[2024-10-12] MEDS: LEVOFLOXACIN IN DEXTROSE 5 % 750 MG/150 ML PREMIX 100 MG IV (08:39)
--- NOTE | 2024-10-12 09:39 | SWNOTE1 ---
Pt is approved to go to [facility]. LAST let case management know that is rounding with doctor. Pt is getting testing done, then doctor will determine if she is medically stable.
--- NOTE | 2024-10-12 09:41 | CM.NOTE ---
Rounds made with Dr. Hernandes. Dr. Hernandes reviews plan of care and abnormal findings with Jes and . Potential discharge later today after additional testing.
--- NOTE | 2024-10-12 10:05 | SWNOTE1 ---
SW updated nurse and pt's that pt is approved, just waiting to make sure pt is medically stable for discharge.
--- NOTE | 2024-10-12 11:32 | SWNOTE1 ---
SW spoke to doctor and pt is staying another day, possible discharge tomorrow to [facility] tomorrow. SW updated Lonnie and Niesha at [facility].
--- NOTE | 2024-10-12 11:41 | SWNOTE1 ---
SW did complete HENS online.
--- NOTE | 2024-10-12 14:38 | SWNOTE1 ---
LAST faxed updated physician notes, med list, labs, and vitals to [facility] and [facility] [place].
--- NOTE | 2024-10-12 16:14 | PT.DAILY ---
Physical Therapy Daily Note PT Daily Note/Assess Start: 10/11/24 10:27 Freq: Status: Active Protocol: Document 10/12/24 13:45 ESHULTSophia (Rec: 10/12/24 16:14 ESHULTSophia [id number]) Physical Therapy Daily Note/Assessment Time In/Time Out Time In 13:45 Time Out 16:05 Subjective Subjective Patient is more awake and alert today. Holds appropriate conversation and follows directions. Therapeutic Exercise Time Therapeutic Exercise 10 Minutes (minutes) Therapeutic Exercise 1 Units Therapeutic Exercise Treatment Therapeutic Exercise Seated and standing exercises 10 reps each to promote B Treatment LE strength. Therapeutic Activity Time Therapeutic Activity 5 Minutes (minutes) Therapeutic Activity 0 Units Therapeutic Activity Treatment Chair Transfer Standby Assistance Ability Therapeutic Activity Dynamic standing activity with use of RW and SBA Comments Total Physical Therapy Time Total Therapy 15 Minutes Total Physical 1 Therapy Units Summary Daily Note Summary Patient is more alert today and able to follow along in seated and standing exercise program. SBA with sit to stand. Patient continues to demonstrate weakness and will benefit from SNF [facility]. Patient was up in chair with call light in reach, alarm placed and all needs met.
[2024-10-12] MEDS: QUETIAPINE FUMARATE 25 MG TABLET 50 MG PO (21:03)
[2024-10-12 21:59] LABS: Basophils Percent Auto 0.6 % (0.2-2.0); Eosinophils Absolute Auto 0.2 10^3/uL (0.0-0.7); Eosinophils Percent Auto 3.8 % (0.9-7.0); Hematocrit 27.3 % (36.0-48.0); Hemoglobin 8.8 g/dL (12.0-16.0); Immature Granulocytes Abs Auto 0.03 10^3/uL (0.00-0.03); Immature Granulocytes Pct Auto 0.6 % (0.0-0.5); Lymphocytes Absolute Auto 1.3 10^3/uL (1.2-3.8); Lymphocytes Percent Auto 25.1 % (20.5-60.0); Mean Corpuscular HGB Conc 32.2 g/dL (29.9-35.2); Mean Corpuscular Hemoglobin 30.8 pg (26.7-34.0); Mean Corpuscular Volume 95.5 fL (81.0-99.0); Mean Platelet Volume 10.8 fL (9.5-13.5); Monocytes Absolute Auto 0.5 10^3/uL (0.3-0.8); Neutrophils Absolute Auto 3.1 10^3/uL (1.4-6.5); Neutrophils Percent Auto 59.9 % (43.0-75.0); Platelet Count 147 10^3/uL (150-450); Red Blood Count 2.86 10^6/uL (4.20-5.40); White Blood Count 5.2 10^3/uL (4.0-11.0)
[2024-10-12 22:13] LABS: Lactate/Lactic Acid 1.4 mmol/L (0.4-2.0)
[2024-10-12 22:22] LABS: Alanine Aminotransferase 24 U/L (14-59); Albumin Globulin Ratio 0.7; Albumin Level 2.3 g/dL (3.4-5.0); Alkaline Phosphatase 105 U/L (46-116); Anion Gap 6.9; Aspartate Amino Transferase 16 U/L (15-37); BUN Creatinine Ratio 14.9; Bilirubin Total 0.9 mg/dL (0.2-1.0); Calcium 8.9 mg/dL (8.5-10.1); Carbon Dioxide 31.9 mmol/L (21.0-32.0); Chloride 108 mmol/L (98-107); Estimated GFR (African America 42 (>=60 mL/min/1.73m^2); Estimated GFR (Non-African Ame 35 (>=60 mL/min/1.73m^2); Globulin 3.4 g/dL; Glucose 120 mg/dL (74-106); Magnesium 1.7 mg/dL (1.8-2.4); Potassium 3.8 mmol/L (3.5-5.1); Sodium 143 mmol/L (136-145); Total Protein 5.7 g/dL (6.4-8.2)
[2024-10-12] MEDS: LACTATED RINGER'S SOLUTION 1,000 ML 125 ML IV (22:43)
[2024-10-13 04:00] VITALS: BP 121/72; PULSE 86; TEMP 36.7; O2SAT 93
[2024-10-13 05:14] VITALS: O2SAT 96
[2024-10-13 05:39] LABS: Basophils Percent Auto 0.5 % (0.2-2.0); Eosinophils Absolute Auto 0.2 10^3/uL (0.0-0.7); Eosinophils Percent Auto 3.8 % (0.9-7.0); Hematocrit 26.3 % (36.0-48.0); Hemoglobin 8.6 g/dL (12.0-16.0); Immature Granulocytes Abs Auto 0.03 10^3/uL (0.00-0.03); Immature Granulocytes Pct Auto 0.5 % (0.0-0.5); Lymphocytes Absolute Auto 1.7 10^3/uL (1.2-3.8); Lymphocytes Percent Auto 28.1 % (20.5-60.0); Mean Corpuscular HGB Conc 32.7 g/dL (29.9-35.2); Mean Corpuscular Hemoglobin 30.8 pg (26.7-34.0); Mean Corpuscular Volume 94.3 fL (81.0-99.0); Mean Platelet Volume 10.2 fL (9.5-13.5); Monocytes Absolute Auto 0.6 10^3/uL (0.3-0.8); Monocytes Percent Auto 9.8 % (1.7-12.0); Neutrophils Absolute Auto 3.5 10^3/uL (1.4-6.5); Neutrophils Percent Auto 57.3 % (43.0-75.0); Platelet Count 148 10^3/uL (150-450); Red Blood Count 2.79 10^6/uL (4.20-5.40); Red Cell Distribution Width 13.8 % (11.0-15.0)
[2024-10-13 05:59] LABS: Alanine Aminotransferase 23 U/L (14-59); Albumin Globulin Ratio 0.8; Albumin Level 2.4 g/dL (3.4-5.0); Alkaline Phosphatase 101 U/L (46-116); Anion Gap 7.8; Aspartate Amino Transferase 14 U/L (15-37); BUN Creatinine Ratio 13.9; Calcium 8.7 mg/dL (8.5-10.1); Carbon Dioxide 32.9 mmol/L (21.0-32.0); Chloride 108 mmol/L (98-107); Estimated GFR (African America 46 (>=60 mL/min/1.73m^2); Estimated GFR (Non-African Ame 38 (>=60 mL/min/1.73m^2); Globulin 3.1 g/dL; Glucose 83 mg/dL (74-106); Potassium 3.7 mmol/L (3.5-5.1); Sodium 145 mmol/L (136-145); Total Protein 5.5 g/dL (6.4-8.2)
[2024-10-13] MEDS: LACTATED RINGER'S SOLUTION 1,000 ML 125 ML IV (06:06)
[2024-10-13] MEDS: LEVOTHYROXINE SODIUM 100 MCG TABLET PO (06:06)
[2024-10-13 07:29] VITALS: PULSE 62
[2024-10-13] MEDS: APIXABAN 5 MG TABLET PO (08:50)
[2024-10-13] MEDS: HALOPERIDOL 5 MG TABLET PO (08:51)
[2024-10-13] MEDS: ACETAMINOPHEN 325 MG TABLET 650 MG PO (08:51)
[2024-10-13] MEDS: Letrozole 2.5 mg tablet 2.5 EACH PO (08:51)
--- NOTE | 2024-10-13 09:30 | SWNOTE1 ---
SW did receive a message from Lonnie at [facility] and pt's precert is good thru today. If she is not stable to come today, then a new precert will need to be started. LAST notified doctor.
--- NOTE | 2024-10-13 09:31 | P.DS_ITS ---
DS: Providers Provider Date of admission: 10/08/24 10:26 Primary care physician: KATYA WEAVER Attending physician on admission: Shaikh Bharti Consults: 10/08/24 Speech Therapy Eval and Treat Routine Reason for consultation: Failed dysphagia screen with RN 10/08/24 10:51 Physical Therapy Eval and Treat Routine Reason for consultation: Ambulatory dysfunction/weakness 10/08/24 15:40 Consult to TeleNeurology Routine Reason for consultation: confusion 10/10/24 08:27 Occupational Therapy Eval and Treat Routine Reason for consultation: weakness Has provider been notified: No Discharging clinician: Alyse Hernandes DS: Diagnosis Discharge Diagnosis (1) Hypothermia: Qualifiers: Encounter type: subsequent encounter Qualified Code(s): T68.XXXD - Hypothermia, subsequent encounter (2) Schizophrenia: Qualifiers: Schizophrenia type: unspecified Qualified Code(s): F20.9 - Schizophrenia, unspecified (3) Atrial fibrillation: Qualifiers: Atrial fibrillation type: paroxysmal Qualified Code(s): I48.0 - Paroxysmal atrial fibrillation (4) Hypothyroid: Qualifiers: Hypothyroidism type: unspecified Qualified Code(s): E03.9 - Hypothyroidism, unspecified (5) CKD stage 3a, GFR 45-59 ml/min: (6) Lactic acid acidosis: (7) Weakness generalized: (8) DCIS (ductal carcinoma in situ): Qualifiers: Laterality: unspecified laterality Qualified Code(s): D05.10 - Intraductal carcinoma in situ of unspecified breast DS: Summary Hospital Course Hospital Course: Patient admitted 10/08/24 68-year-old female with history of catatonic schizophrenia, atrial fibrillation, hypothyroidism, history of breast cancer currently in remission was brought over to ED by his spouse who is also her primary caregiver for unusual behavior/change in mental status that has been ongoing for about 4 weeks. Workup in ED revealed patient was hypothermic but other than that at no acute change or metabolic abnormality was noted on workup except for mild lactic acidosis. CT head no acute findings. She was started on IV hydration and empirically treated with IV Levaquin. There is no report of fever, respiratory symptoms or GI symptoms. CXR showed RLL infiltrate. She was treated with IV Levaquin and transitioned to oral Levaquin 750mg q 48 hours, she will need 2 more doses. Blood cultures and urine cultures negative. Lactates normal. WBC's normal. TSH slightly elevated and I did increase her levothyroxine to 100mcg daily. I am suspicious that her Schizophrenia is playing a role in her body's ability of thermoregulation. I have also stopped evening dose of Haloperidol and place on morning 5mg and will continue Seroquel 50mg at night time only. This medication interaction could also be contributing to her hypothermia episodes which over the last 2 days are only at night. Maybe her sleep apnea is also playing a role. I think all things considered it's going to take some time for her body to adjust to medication changes, and I'm not certain this is an acute finding. Infectious work up has been negative. [facility] to complete 2 more doses of Levaquin, and changes with Haldol. She is alert today, has been contributing to PT and is progressing back to her baseline. She will resume other home meds and will need TFT's in 1 month. Status at Discharge Functional status at discharge: uses cane/walker Overall status at discharge: patient is progressing back to baseline Time Spent with Patient Time attestation: Total time spent providing and/or coordinating discharge services: Time spent: greater than 30 minutes Exam Narrative Exam Narrative: General: Patient answers questions appropriately today, sitting in chair Skin: no visible rashes, or ulcers Head: atraumatic, acephalic Eyes: PERRLA, no nystagmus present, conjunctiva clear, no scleral icterus Neck: no masses palpated Heart: Normal rate and rhythm, no murmurs/rubs/gallops Lungs: no audible wheezes, crackles and normal breath sounds all lung hurtado Abdomen: Normal audible bowel sounds, no distension, No palpable masses, no organomegaly, no rebound/guarding/ or rigidity Musculoskeletal: no swelling bilateral lower extremities Constitutional Vital Signs, click to edit/add: Last Vital Signs Temp 98.1 F 10/13/24 04:00 Pulse 62 10/13/24 07:29 Resp 16 10/13/24 08:00 BP 121/72 10/13/24 04:00 Pulse Ox 96 10/13/24 05:14 O2 Del Method Nasal Cannula 10/13/24 05:14 O2 Flow Rate 2 10/13/24 05:14 DS: Data Data Completed and Pending Labs on day of discharge: Labs from last 24 hours 10/13/24 10/12/24 05:32 21:30 WBC 6.0 5.2 RBC 2.79 L 2.86 L Hgb 8.6 L 8.8 L Hct 26.3 L 27.3 L MCV 94.3 95.5 MCH 30.8 30.8 MCHC 32.7 32.2 RDW 13.8 14.0 Plt Count 148 L 147 L MPV 10.2 10.8 Neut % (Auto) 57.3 59.9 Lymph % (Auto) 28.1 25.1 [place] % (Auto) 9.8 10.0 Eos % (Auto) 3.8 3.8 Baso % (Auto) 0.5 0.6 Neut # (Auto) 3.5 3.1 Lymph # (Auto) 1.7 1.3 [place] # (Auto) 0.6 0.5 Eos # (Auto) 0.2 0.2 Baso # (Auto) 0.0 0.0 Abs Immat Gran (auto) 0.03 0.03 Imm/Tot Granulo (auto) 0.5 0.6 H Sodium 145 143 Potassium 3.7 3.8 Chloride 108 H 108 H Carbon Dioxide 32.9 H 31.9 Anion Gap 7.8 6.9 BUN 19.0 H 22.0 H Creatinine 1.37 H 1.48 H Est GFR ( Amer) 46 L 42 L Est GFR (Non-Af Amer) 38 L 35 L BUN/Creatinine Ratio 13.9 14.9 Glucose 83 120 H Lactate 1.4 Calcium 8.7 8.9 Magnesium 1.7 L Total Bilirubin 1.0 0.9 AST 14 L 16 ALT 23 24 Alkaline Phosphatase 101 105 Total Protein 5.5 L 5.7 L Albumin 2.4 L 2.3 L Globulin 3.1 3.4 Albumin/Globulin Ratio 0.8 0.7 Preliminary micro results at discharge 10/08/24 08:28 Blood Culture Result 2 - Preliminary Blood NO GROWTH AT 36-48 HOURS. FINAL TO FOLLOW. 10/08/24 08:23 Blood Culture Result 1 - Preliminary Blood NO GROWTH AT 36-48 HOURS. FINAL TO FOLLOW. Discharge Plan Discharge Disposition: Xfer SNF Condition: Fair Discharge Medications: New haloperidol 5 mg Tablet 5 mg PO AM Qty: 30 0RF levothyroxine 100 mcg Tablet 100 mcg PO ACB Qty: 30 0RF levofloxacin 750 mg Tablet 750 mg PO Q48H Qty: 2 0RF Continued Eliquis 5 mg tablet 5 mg PO BID letrozole 2.5 mg tablet 2.5 mg PO DAILY quetiapine 50 mg tablet 50 mg PO .QHS alendronate 70 mg tablet 70 mg PO QWEEK Rx Instructions: Wednesdays ergocalciferol (vitamin D2) [Vitamin D2] 1,250 mcg (50,000 unit) capsule 1,250 mcg PO QWEEK Rx Instructions: Discontinued levothyroxine 50 mcg tablet 50 mcg PO .ACB haloperidol 5 mg tablet 5 mg PO BID hydrocodone-acetaminophen 5-325 mg Tablet 1 tab PO Q6H PRN (Reason: Pain Scale 4-6) Qty: 14 0RF Print Language: [place] Islander Leak Patcher/Button Station Worker Instructions: Discharge to [facility] skilled Forms: Portal Instructions Discharge location: To the [facility]
[2024-10-13] MEDS: ONDANSETRON PF 4 MG/2 ML VIAL IV (10:41)
--- NOTE | 2024-10-13 11:08 | PT.DAILY ---
Physical Therapy Daily Note PT Daily Note/Assess Start: 10/11/24 10:27 Freq: Status: Active Protocol: Document 10/13/24 11:04 SANA (Rec: 10/13/24 11:08 SANA [id number]) Physical Therapy Daily Note/Assessment Time In/Time Out Time In 10:50 Time Out 11:02 Pain In Pain N/A Pain Out Pain N/A Subjective Subjective Pt sitting on the toilet upon arrival with nursing. Pt OK with MOLD REPAIR TECHNICIAN taking over her care at this time. Therapeutic Exercise Time Therapeutic Exercise 5 Minutes (minutes) Therapeutic Exercise 0 Units Therapeutic Exercise Treatment Therapeutic Exercise Pt instructed to complete bilat LE strengthening ex Treatment while sitting in BS chair. Pt seems to be lethargic with delayed responses to questions and directions - nursing is notified. Therapeutic Activity Time Therapeutic Activity 7 Minutes (minutes) Therapeutic Activity 1 Units Therapeutic Activity Treatment Chair Transfer Standby Assistance Ability Therapeutic Activity Pt able to perform pericare herself while sitting on Comments toilet. Sit>stand using grab bar SBA. Pt amb 5' to sink with RW, SBA. Static standing at sink to wash her hands and fix hair - no LOB. Pt amb 25' in room to BS chair using RW, CGA for safety. Remains in BS chair for seated ex. Feet are elevated upon completion, chair alarm set and call light within reach. Total Physical Therapy Time Total Therapy 12 Minutes Total Physical 1 Therapy Units Summary Daily Note Summary Lethargic once in BS chair - nursing notified. Steady with gait and static/dynamic balance activities using RW.
[2024-10-13 11:28] VITALS: BP 97/67; PULSE 61; TEMP 36.3; O2SAT 93
[2024-10-13 11:43] VITALS: O2SAT 90
--- NOTE | 2024-10-13 11:51 | CM.NOTE ---
Rounds made with Dr. Hernandes. Plan for discharge later today to [facility] discussed with Mr. Anderson and Jes. Understanding verbalized.
--- NOTE | 2024-10-13 11:58 | SWNOTE1 ---
Pt stable for discharge later today. LAST called [facility] to see if they have transport, waiting to hear back. LAST spoke to pt's to see if he would want to transport if we assisted getting her in car and [facility] assisted getting her out. He voiced he was not sure. He voiced she was doing well earlier today, but now seems pretty tired. SW heard back from [facility] and they do not have transport available today. SW to call trips.
--- NOTE | 2024-10-13 12:08 | SWNOTE1 ---
LAST faxed dc med rec, PT/OT from today, labs, vitals, and nursing notes to [facility]. [facility] does not have transport available. LAST called and set up trips. The time they can do it is around 5:00. LAST notified [facility], pt's nurse, and pt's of discharge time. LAST already completed HENS. LAST took packet to the floor.
--- NOTE | 2024-10-13 12:09 | SWNOTE1 ---
Pt is discharging to [facility].
--- NOTE | 2024-10-13 12:23 | SWNOTE1 ---
SW spoke to in regards to time and he is alright with 5:00. SW did express that if he decides he wants to take her over to let SW or nurse know and we can cancel trips.
== END 2024-10-13 16:55 ==
LOC: ER 09:30 → MS 10:35
PROVIDERS: Registered Nurse; Admitting Provider Internal Medicine; Emergency Provider Emergency Medicine; PCP Nurse Practitioner; Visit Provider Family Medicine
DX: R68.0 Hypothermia, not associated with low environmental temperature (principal); F20.2 Catatonic schizophrenia; R53.1 Weakness; E87.20 Acidosis, unspecified; R33.9 Retention of urine, unspecified; I48.0 Paroxysmal atrial fibrillation; E03.9 Hypothyroidism, unspecified; N18.31 Chronic kidney disease, stage 3a; M81.0 Age-related osteoporosis without current pathological fracture; D05.10 Intraductal carcinoma in situ of unspecified breast; G47.30 Sleep apnea, unspecified; Z79.890 Hormone replacement therapy; Z79.899 Other long term (current) drug therapy; Z79.83 Long term (current) use of bisphosphonates; Z88.1 Allergy status to other antibiotic agents; Z88.2 Allergy status to sulfonamides
CPT/HCPCS: 36415; 36600; 70450; 71045; 80053; 80307; 80320; 80329; 81001; 81003; 82140; 82800; 82805; 83605; 83735; 84443; 84484; 85007; 85025; 85027; 87040; 87804; 87811; 92526; 92610; 93005; 94761; 96365; 96366; 96372; 96375; 96376; 97110; 97161; 97165; 97530; 97535; 99285; G0378; J1650; J2060; J2405

== ENCOUNTER 2025-03-27 20:15 | Emergency (ER) | payer MEDICARE, SELFPAY ==
[2025-03-27] VITALS (30 sets, daily range): BP systolic 117–159; BP diastolic 53–74; PULSE 62–93; TEMP 34.3–34.9; O2SAT 90–97; BMI 31.1
--- OUTSIDE RECORDS SUMMARY | 2025-03-27 20:21 | XMS_ITS | Clinical Summary ---
Author Organization [facility] Address [address] [place] [address] Care Team Providers Care Motor Inspection Mechanic Name Role Phone Ezequiel Keya BLOCKMASON Unavailable Allergies Active AllergyReactionsCriticalityNoted UykwDshdtwcvQnreoiyrflCnljMmh96/17/2023 Other Reaction(s): Unknown YampuahsqtxErorVwk55/17/2023 Other Reaction(s): Unknown Sulfa PmwonrqjyxjWatdTgk97/17/2023 Other Reaction(s): Unknown Medications MedicationSigDispense QuantityRefillsLast FilledStart DateEnd DateStatus acetaminophen (Tylenol) 500 MG tablet Take 1 tablet by mouth every 6 (six) hours if needed.09/07/2022ctive apixaban (Eliquis) 2.5 MG tablet Take 2 tablets by mouth in the morning and 2 tablets before bedtime.Active benztropine (Cogentin) 2 MG tablet Take 1 tablet by mouth in the morning and 1 tablet before bedtime.Active Ziac 2.5-6.25 MG tablet 1 (one) time each day at the same time.Active diphenhydrAMINE (BENADryl) 25 MG capsule Take 25 mg by mouth.Active Docusate Sodium (DSS) 100 MG capsule Take 1 capsule by mouth in the morning and 1 capsule before bedtime.09/07/2022 Active haloperidol (Haldol) 5 MG tablet Take 5 mg by mouth in the morning and 5 mg before bedtime.Active HYDROmorphone (Dilaudid) 2 MG tablet 11/08/2022ctive levothyroxine (Synthroid, Levoxyl) 50 MCG tablet Take 50 mcg by mouth in the morning.Active QUEtiapine (SEROquel) 50 MG tablet Take 50 mg by mouth DailyActive sennosides (Senokot) 8.6 MG tablet Take 8.6 mg by mouth.02/04/2023ctive vancomycin (Vancocin) 125 MG capsule 12/12/2022ctive ergocalciferol (Vitamin D2) 1.25 MG (12331 UT) capsule Take 50,000 Int'l Units by mouth 1 (one) time per week10/03/2023ctive alendronate (Fosamax) 70 MG tablet Take 70 mg by mouth once a week04/14/2023ctive Femara 2.5 MG chemo tablet Take 2.5 mg by mouth Daily.01/05/2024ctive Active Problems ProblemNoted DateDiagnosed BypsUlkkwcxeykq54/04/8813Wvoeqjk80/04/2024Snoring 02/04/2024OSA (obstructive sleep apnea)11/12/2023 Social History Tobacco UseTypesPacks/DayYears UsedDateSmoking Tobacco: NeverSmokeless Tobacco: Never Tobacco Cessation:Counseling Given: Not Answered Alcohol UseStandard Drinks/WeekCommentsNever0 (1 standard drink = 0.6 oz pure alcohol)CommentsUnknownSex and Gender InformationValueDate RecordedSex Assigned at BirthNot on fileLegal IttHrmcql65/01/2023 8:31 PM EDTGender Identity Not on fileSexual OrientationNot on file Last Filed Vital Signs Vital SignReadingTime TakenCommentsBlood Zznqthzw556/9009 9:22 AM EDT Qbnpc184702/04/2024 9:22 AM EDTTemperature--Respiratory Dvzm014811/12/2023 11:22 AM EDTOxygen Cppwwzsjip42%02/04/2024 9:22 AM EDTInhaled Oxygen Concentration-- Qyponb54.2 kg (168 lb)02/04/2024 9:22 AM JPSEdzdel084.4 cm (5')02/04/2024 9:22 AM EDTBody Mass Index32.8102/04/2024 9:22 AM EDT Plan of Treatment DateTypeDepartmentCare Team (Latest Contact Info)Fboqzkuyghg19/31/2026 10:00 AM EDTOffice Visit [facility] [address] [place] [id number] Ameena Beal MD [address] [place] [address] Health MaintenanceDue DateLast DoneCommentsCT Vnoojshalwwa50/28/1955Colonoscopy 1954olorectal Cancer Tkpnzkqon56/28/1955FIT-DNA1954FIT1954 FOBT1954 8351Ntfwcmnmesrxh50/28/0747Sylaxzqjq70/28/1995Pneumococcal Vaccine: 65+ Years (2 of 2 - PCV20 or PCV21)/Influenza Vaccine (#1) /, 02/24/2024, 03/05/2023, Additional history exists Insurance Care Teams Team MemberRelationshipSpecialtyStart DateEnd Date Keya Nieves NP [address] [place], [place] [id number] Referring PhysicianFamily Hlamgabm62/6/23
--- OUTSIDE RECORDS SUMMARY | 2025-03-27 20:21 | XMS_ITS | Clinical Summary ---
Author Organization [facility] Address [id number] [address] [place] [address] Care Team Providers Care Nutrition Services Worker Name Role Phone Keya Nieves ACID CONCENTRATOR-[employer]ER [employer] Primary Care Provider [phone] Social History Tobacco UseTypesPacks/DayYears UsedDateSmoking Tobacco: Never Assessed CommentsUnknownSex and Gender InformationValueDate RecordedSex Assigned at Not on fileLegal UcoKfbmzj25/09/2025 4:43 PM EDTGender IdentityNot on fileSexual OrientationNot on file Plan of Treatment Health MaintenanceDue DateLast DoneCommentsDepression Mvzcklhyg90/28/1967Tobacco Czxfkunqo45/28/1967Adult BMI Arjrwkdct12/28/1973Zoster (Shingles) Vaccine (1 of 2)2004Fall Risk Rigmmoksj28/28/2020COVID-19 Vaccine (2023- season) , 03/05/2023, 03/09/2022, Additional history existsInfluenza Yqyqnwn26/, 02/24/2024, 03/05/2023, Additional history exists DTaP,Tdap and Td Vaccines (2 - Tdap) Medical Devices Not on file Insurance Care Teams Team MemberRelationshipSpecialtyStart DateEnd Date Keya Nieves, ACID CONCENTRATOR-[employer]PLER [employer] [address] [place] [address] [place] [address] PCP - GeneralNurse Practitioner10/08/24
--- OUTSIDE RECORDS SUMMARY | 2025-03-27 20:21 | XMS_ITS ---
Author Organization [facility] Care Team Providers Care Wire Technician Name Role Phone Niesha Gusman Unavailable Unavailable Masoud Terrell Unavailable Unavailable Jamil Lundberg Unavailable Unavailable Layne Caba Unavailable Unavailable Rodrigue CORBETT, Nasra Riley Unavailable Unavailable Bakies, Malissa Unavailable Unavailable Scott Waddell Unavailable Unavailable Zenia MENDOZACMee Unavailable Unavailable Allergies and adverse reactions Code CodeSystem Substance Reaction Severity StartDate Concern Status 723 RXNORM Amoxicillin Mild Unknown active [id number] CTSulfa AntibioticsMildUnknownactive Care Team Name Role Address Phone Organization Dates Jamil Lundberg [address], [facility], [place] (Office): : [facility] 09/29/2022 - 10/08/2022 Niesha Gusman [address] [place], [address], [place] (Office): [facility] 09/29/2022 - 10/08/2022 Masoud Terrell [address], [facility], [place] (Office): : : [facility] 09/29/2022 - 10/08/2022 Layne Caba [address] [place], [address], [facility] (Cell): : [facility] 09/29/2022 - 10/08/2022 Nasra Husain IRRIGATION INSTALLATION SPECIALIST [address] [place], [address], [facility] (Office): : : [facility] 09/29/2022 - 10/08/2022 Malissa [facility], [place] (Cell): [facility] 09/29/2022 - 10/08/2022 Scott Waddell [address] [place], [address], [facility] (Office): : [facility] 09/29/2022 - 10/08/2022 Mee Knutson IRRIGATION INSTALLATION SPECIALIST-C [address], [address], [facility] (Cell): : : [facility] 09/29/2022 - 10/08/2022 Insurance Providers Problems Problem # Description Date of onset Resolved Date Code CodeSystem Concern Status 1 AGE-RELATED OSTEOPOROSIS WITHOUT CURRENT PATHOLOGICAL FRACTURE 09/29/[address] active 2 ATHEROSCLEROTIC HEART DISEASE OF [place] CORONARY ARTERY WITHOUT ANGINA PECTORIS 09/29/[address] active 3 CATATONIC SCHIZOPHRENIA 09/29/[address] active 4 ANEMIA, UNSPECIFIED 08/23/[address] active 5 CHRONIC KIDNEY DISEASE, UNSPECIFIED 08/23/[address] active 6 HYPERTENSIVE CHRONIC KIDNEY DISEASE WITH STAGE 1 THROUGH STAGE 4 CHRONIC KIDNEY DISEASE, OR UNSPECIFIED CHRONIC KIDNEY DISEASE 08/23/[address] active 7 HYPOTHYROIDISM, UNSPECIFIED 08/23/[address] active 8 METABOLIC ENCEPHALOPATHY 08/23/[address] active 9 PARANOID SCHIZOPHRENIA 08/23/1909/07/[address] completed 10 PERSONAL HISTORY OF OTHER VENOUS THROMBOSIS AND EMBOLISM 08/23/[address] active 11 UNSPECIFIED ATRIAL FIBRILLATION 08/23/[address] active 12 URINARY TRACT INFECTION, SITE NOT SPECIFIED 08/23/1909/07/[address] completed 13 ZOSTER WITHOUT COMPLICATIONS 08/23/[address] active Reason for Referral No Reasons for Referral Entered Social History Social History Observation Description Start Date End Date Code Code System Current Smoking Status Tobacco smoking consumption unknown 257031287 SNOMED CT Sex Assigned At Female 1955 02543-2 [facility] Gender Identity Sexual Orientation Vital Signs Code Code System Vitals Name Values and Units Timing Information 33606-4 [facility] Pain Level Value=3.0 10/08/2022 9279-1 [facility] Respiratory Rate Value=20.0 Units=/m in 10/08/2022 8462-4 [facility] Blood Pressure-Diastolic Value=97 Un its=mmHg 10/08/2022 8480-6 [facility] Blood Pressure-Systolic Fetjv=794 Un its=mmHg 10/08/2022 8867-4 [facility] Heart rate Value=57.0 Units=/min 01/2023 8310-5 [facility] Body Temperature Value=97.5 Units= F 10/08/2022 06831-5 [facility] O2 % BldC Oximetry Value=92.0 Units= % 10/08/2022 98592-6 [facility] Weight Qlukk=914.5 Units=Lbs 8302-2 [facility] Height Value=61.0 Units=Inches 08/22/2022
--- OUTSIDE RECORDS SUMMARY | 2025-03-27 20:21 | XMS_ITS | Clinical Summary ---
Author Organization [facility] Address [address], [address] [place] [address] Care Team Providers Care Account Classification Clerk Name Role Phone Jamil Lundberg MD Primary Care Provider [phone] Allergies Active AllergyReactionsCriticalityNoted TabeZzzbdyrrFmkcgykymwTzkvRms55/17/2023 AvreysestbeGevuKbo72/17/6827XjbswtiywyyfbxsqAlrlVdl93/17/2023 Medications MedicationSigDispense QuantityRefillsLast FilledStart DateEnd DateStatus levothyroxine (SYNTHROID) 100 MCG tablet Take 0.5 tablets by mouth DailyActive apixaban (ELIQUIS) 2.5 MG TABS tablet Take 2 tablets by mouth 2 times dailyActive benztropine (COGENTIN) 2 MG tablet Take 1 tablet by mouth 2 times dailyActive ciprofloxacin (CIPRO) 500 MG tablet Take 1 tablet by mouth 2 times dailyActive docusate sodium (COLACE) 100 MG capsule Take 1 capsule by mouth 2 times dailyActive potassium chloride (KLOR-CON) 20 MEQ packet Take 20 mEq by mouth 2 times dailyActive risperiDONE (RISPERDAL) 2 MG tablet Take 1 tablet by mouth 2 times dailyActive acetaminophen (TYLENOL) 500 MG tablet Take 1 tablet by mouth every 6 hours as needed for PainActive LORazepam (ATIVAN) 1 MG tablet Take 1 tablet by mouth every 6 hours as needed for Anxiety. Max Daily Amount: 4 mgActive diphenhydrAMINE (BENADRYL) 25 MG capsule Take 1 capsule by mouth every 6 hours as needed for ItchingActive haloperidol lactate (HALDOL) 5 MG/ML injection Inject into the muscle every 6 hours as needed for AgitationActive hydroCHLOROthiazide (HYDRODIURIL) 12.5 MG tablet Take 0.5 tablets by mouth daily as neededActive LORazepam (ATIVAN) 2 MG/ML injection Inject 0.5 mLs into the muscle every 6 hours as needed. Max Daily Amount: 4 mg Active risperiDONE microspheres ER (RISPERDAL CONSTA) 25 MG SRER injection Inject 2 mLs into the muscle every 14 daysActive Social History Tobacco UseTypesPacks/DayYears UsedDateSmoking Tobacco: Never Assessed CommentsNoSex and Gender InformationValueDate RecordedSex Assigned at BirthNot on fileLegal ShqExskeu78/26/2023 1:13 PM EDTGender IdentityNot on fileSexual OrientationNot on file Last Filed Vital Signs Vital SignReadingTime TakenCommentsBlood Mdkokekv696/8910/09/2022 7:06 AM EDT Rzqgo848810/09/2022 7:06 AM CUOElzxrmjuuhp57.2 ??C (97.1 ??F)10/08/2022 1:25 PM EDTRespiratory Onrd310310/09/2022 7:06 AM EDTOxygen Olyiltipxj73%10/09/2022 7:06 AM EDTInhaled Oxygen Concentration--Icsnby79.6 kg (180 lb)10/08/2022 1:21 PM EDT Gujidi302.1 cm (5' 5 )10/08/2022 1:21 PM EDTBody Mass Index29.95010/08/2022 1:21 PM EDT Plan of Treatment Health MaintenanceDue DateLast DoneCommentsDepression Rpsoul0811/27/1966Hepatitis C ymcyoa0211/27/1972Breast cancer ecbnst8711/27/19946121Upxugustpsb81/28/2000Colorectal Cancer Yjieuh9911/28/1999FIT/FOBT: Average risk11/28/1999Fecal-DNA (Cologuard): Average risk11/28/1999Sigmoidoscopy/CT mojkjgegcyjf14/28/2000Shingles vaccine (1 of 2)2004DEXA (modify frequency per FRAX score)2009Respiratory Syncytial Virus (RSV) or age 60 yrs+ (1 - Risk 60-74 years 1-dose series)2014Pneumococcal 50+ years Vaccine (2 of 2 - PCV20 or PCV21) /Annual Wellness Visit (Medicare Advantage)06/02/2024Flu vaccine (#1)/, 01/27/2021, 02/20/2019, Additional history existsCOVID-19 Vaccine ( season)/12/2021, 03/29/2021, 08/23/2020, Additional history jvfvxyDotiiw59/05/166106/3DTaP/Tdap/Td vaccine (2 - Tdap)Hepatitis A vaccineAged OutNo longer eligible based on patient's age to complete this topicHepatitis B vaccineAged OutNo longer eligible based on patient's age to complete this topicHib vaccine Aged OutNo longer eligible based on patient's age to complete this topic Meningococcal (ACWY) vaccineAged OutNo longer eligible based on patient's age to complete this topicMeningococcal B vaccineAged OutNo longer eligible based on patient's age to complete this topicPolio vaccineAged OutNo longer eligible based on patient's age to complete this topic Procedures Procedure NamePriorityDate/TimeAssociated DiagnosisCommentsLIPID PANELRoutine 10/04/2022 6:50 AM EDT from Last 3 Months or Most Recently Relevant to Health Maintenance Results * Lipid Panel (10/04/2022 6:50 AM EDT)ComponentValueRef RangeTest MethodAnalysis TimePerformed AtPathologist BqygbuhnlEsgdyjryepj304<200 mg/dL10/04/2022 6:50 AM EDTMERCY LABORATORIESComment: Cholesterol Guidelines: <200 Desirable 200-240 ??Borderline >240 Undesirable OUT563>40 mg/dL10/04/2022 6:50 AM EDTMERCY LABORATORIESComment: HDL Guidelines: <40 Undesirable 40-59 ?Borderline >59 Desirable LDL Bubvdoogsvo313 - 130 mg/dL10/04/2022 6:50 AM EDTMERCY LABORATORIESComment: LDL Guidelines: <100 Desirable 100-129 ?? Near to/above Desirable 130-159 ?? Borderline >159 Undesirable Direct (measured) LDL and calculated LDL are not interchangeable tests. Chol/HDL Ratio1.9< 6:50 AM EDTMERCY LABORATORIESComment:Triglycerides 93<150 mg/dL10/04/2022 6:50 AM EDTMERCY LABORATORIESComment: Triglyceride Guidelines: <150 Desirable 150-199 ??Borderline 200-499 ??High >499 Very high Based on AHA Guidelines for fasting triglyceride, March 2012. Specimen (Source)Anatomical Location / LateralityCollection Method / Volume Collection TimeReceived Time10/04/2022 6:50 AM EDT10/04/2022 6:56 AM EDT Narrative Authorizing ProviderResult TypeResult StatusIrroslyn Lundberg MDCHEMISTRY ORDERABLES Final ResultPerforming OrganizationAddressCity/State/ZIP CodePhone Number [facility] [address] [place] [address], [facility] [phone] [facility] [address] [place] [address], [facility] [phone] from Last 3 Months or Most Recently Relevant to Health Maintenance Insurance Care Teams Team MemberRelationshipSpecialtyStart DateEnd Date Jamil Lundberg MD [address] [place] [address] PCP - GeneralPsychiatry08/25/22
--- OUTSIDE RECORDS SUMMARY | 2025-03-27 20:21 | XMS_ITS | Clinical Summary ---
Author Organization [facility] Address [address] [place] [address] Care Team Providers Care Crm Manager Name Role Phone EzequielEstheladi INSPECTOR REPAIRER-C Primary Care Provider [phone] Allergies Active AllergyReactionsCriticalityNoted LvbdOqsgpxocCofzvtrjkpMubiIms77/17/2023 AcnitxedbbyEdaiOxt47/17/7789UfkkealwuuthuyqgKdmwNjz11/17/2023 Medications MedicationSigDispense QuantityRefillsLast FilledStart DateEnd DateStatus ergocalciferol (Vitamin D-2) 1.25 MG (72907 Units) capsule TAKE 1 CAPSULE BY MOUTH EVERY 7 DAYS06/18/2022ctive levothyroxine (Synthroid, Levoxyl) 75 mcg tablet Take 50 mcg by mouth in the morning.09/07/2022ctive haloperidol (Haldol) 5 mg tablet Take 5 mg by mouth in the morning and at bedtime.08/06/2023ctive QUEtiapine (SEROquel) 50 mg tablet Take 50 mg by mouth in the morning.08/04/2023ctive alendronate (Fosamax) 70 mg tablet Take 70 mg by mouth every 7 (seven) days.09/15/2023ctive letrozole (Femara) 2.5 mg chemo tablet Take 2.5 mg by mouth in the morning Take with or without food.Active calcium 500 mg calcium (1,250 mg) tablet Take 1 tablet by mouth with breakfast and with evening meal.Active apixaban (Eliquis) 5 mg tablet Indications:Paroxysmal atrial fibrillation (CMS/HCC)Take 1 tablet (5 mg) by mouth two times daily. 180 tablet 5Active Active Problems ProblemNoted DateDiagnosed DateCervical cancer cfcaqvhth60/29/2025History of uterine tdteogw9012/28/2024Impaired pajnllyen60/29/9553Ercuombns33/29/2025Pelvic pain12/28/2024Well woman exam12/28/2024History of recent fall04/28/2024ight shoulder pain04/28/20247543Laicmfcouij56/04/9721Pjeriqt31/04/5435Roaloxx77/04/2024 AMS (altered mental status)nemia Jnfmhmcej13FatigueHypokalemia10/15/2023 10/15/20235810Vjjakijsyxp97Inversion of left qhgzco9410/15/2023 10/15/2023Malignant neoplasm of lower-inner quadrant of female nwqlod2510/15/2023 10/15/2023Neurocognitive gdjwgqks90MI 33.0-33.9,adult OsteopeniaSchizophrenia10/15/2023 10/15/2023UTI (urinary tract infection)Vaginitis10/15/2023 10/15/2023Vitamin D smynmltdyc08therosclerosis of coronary artery without angina ychlsrqc98/29/2023nxiety /17/2023HTN (hypertension)09/16/2022Hyperlipidemia, ytmyafiskos29/17/2023Loss of memory 09/16/2022Major depression with psychotic llwhmbhy32/17/2023OSA (obstructive sleep apnea)09/16/2022trial gsxzntvyzele32/23/2023hronic kidney disease due to twqwioovecnr91/23/2023isorder of vein08/22/2022Metabolic encephalopathy 08/22/2022 Encounters DateTypeDepartmentCare ThnmNbunbisomnx18/29/2025 10:40 AM EDTOffice Visit [facility] [address] [place] [address] Guerrero Tracey CNP Paroxysmal atrial fibrillation (CMS/HCC) (Primary Dx); Nonrheumatic mitral valve regurgitation; Primary hypertension; LISA (obstructive sleep apnea)from Last 3 Months Immunizations ImmunizationAdministration DatesNext FkzFWB3812/15/2021Influenza, High-dose Seasonal, Quadrivalent, Preservative Free02/14/2022,01/27/2021Influenza, injectable, MDCK, preservative free, mavbntirpdyx33/21/2019,03/31/2018Moderna 12 YR UP Vaccine BiValent Lhyuvxt4803/09/2022Moderna SARS-CoV-2 Ysbexsdtcre90/28/2021 ,08/23/2020,1Pneumococcal Conjugate PCV 13002/17/2020 Family History Medical HistoryRelationNameCommentsHeart attackFatherRelationNameStatusComments FatherDeceasedMotherDeceased Social History Tobacco UseTypesPacks/DayYears UsedDateSmoking Tobacco: NeverSmokeless Tobacco: Never Tobacco Cessation:Counseling Given: Not Answered Alcohol UseStandard Drinks/WeekCommentsYes0 (1 standard drink = 0.6 oz pure alcohol)rarelyUT Safety & EnvironmentAnswerDate RecordedFear of Current or Ex-PartnerNot on file07/24/2023Emotionally AbusedNot on file07/24/2023hysically AbusedNot on file07/24/2023Sexually AbusedNot on file07/24/2023hysically or Sexually AbusedNot on file07/24/2023CommentsUnknownSex and Gender InformationValueDate RecordedSex Assigned at ScfxkXaygfn41/29/2025 10:21 AM EDT Legal GiyEzzdkz83/23/2023 11:24 AM EDTGender IrumuwjfZitsui05/29/2025 10:21 AM EDTSexual OrientationHeterosexual or Wmjdohtz15/29/2025 10:21 AM EDT Last Filed Vital Signs Vital SignReadingTime TakenCommentsBlood Jjemdptq786/70012/28/2024 10:44 AM EDT Rmlwp543612/28/2024 10:44 AM EDTTemperature--Respiratory Rate--Oxygen Saturation 96%12/28/2024 10:44 AM EDTInhaled Oxygen Concentration--Nnvhke15.5 kg (173 lb) 12/28/2024 10:44 AM KIVImsseu868.4 cm (5')12/28/2024 10:44 AM EDTBody Mass Index 33.7912/28/2024 10:44 AM EDT Plan of Treatment Health MaintenanceDue DateLast DoneCommentsCT Lfsgcrlzemfr59/28/1955Colonoscopy 1954olorectal Cancer Tvpgvboxy53/28/1955FIT-DNA1954FIT1954 FOBT1954Medicare Annual Wellness (AWV)1955 6447Iqbwqxqmnnmdp50/28/1955 Depression Tvtirdqvx98/28/1967Adult Ukabicm5611/27/1976Zoster Vaccines (1 of 2) 2004Fall Risk Epmsmwqrv17/28/2020Pneumococcal Vaccine: 50+ Years (2 of 2 - PPSV23, PCV20, or PCV21)COVID-19 Vaccine (2024- season), 03/05/2023, 03/09/2022, Additional history exists Influenza Vaccine (#1), 02/24/2024, 03/05/2023, Additional history existsHIB VaccinesAged OutNo longer eligible based on patient's age to complete this topicHPV VaccinesAged OutNo longer eligible based on patient's age to complete this topicIPV VaccinesAged OutNo longer eligible based on patient's age to complete this topicMeningococcal B VaccineAged OutNo longer eligible based on patient's age to complete this topicMeningococcal VaccineAged OutNo longer eligible based on patient's age to complete this topicRotavirus Vaccines Aged OutNo longer eligible based on patient's age to complete this topic Insurance Care Teams Team MemberRelationshipSpecialtyStart DateEnd Keya Nieves FNP-C [address] [place] [address] PCP - GeneralNurse Practitioner12/28/24
--- OUTSIDE RECORDS SUMMARY | 2025-03-27 20:22 | XMS_ITS | CCD ---
Author Organization [facility] Care Team Providers Care Distribution Engineer Name Role Phone MD Melva Escobedo Primary Care Provider MD Reggie Quintana Admit Provider [phone] MD Reggie Quintana Attending Provider MD Judith Cordoba Other Provider [phone] Jamil Lundberg MD Primary Care Provider [...] ESCOBEDO ., DR MELVA Laboy Admitting Unavailable [place], DR AKYLEY Snow Consulting Unavailable ESCOBEDO ., DR MELVA [...] Unavailable Ahmed, Irfan Primary Care Unavailable Frank LOZA-BOTTLE AND GLASS INSPECTOR, Malissa Soto Consulting Un available Alexandra ROPER, Louie Freeman Admitting Unavailable Alexandra ROPER, Louie Freeman Attending Unavailable Luz BASSN-BOTTLE AND GLASS INSPECTOR, Cintia Rincon Consulting Unavailable Shay SURGICAL TECHNOLOGY INSTRUCTOR-BOTTLE AND GLASS INSPECTOR, Rachel Delcid Consulting Margoth anusha Schulz, Cody Francis Consulting Unavailab shira Casas MD, Kei Veloz Consulting Unavailabl e Ahmed, Irfan Consulting Unavailable Ezequiel, Keya L Primary Care Physician MD Melva Escobedo Primary Care Provider MD Marty Mclean Attending Provider MD Milo Garcia Attending Provider [phone] Deb Neumann Attending Unavailabl e Al-Marrawi, Mhd Yaser Admitting Unavailabl e Ezequiel Keya ROPER Unavailable Ezequiel, TAX SERVICES PROFESSIONAL Keya L Admitting Unavailable Ezequiel, TAX SERVICES PROFESSIONAL Keya L Attending Unavailable Ezequiel, TAX SERVICES PROFESSIONAL Keya L Attending Unavailable AMEENA DOMINGUEZ Attending Unavailable FABBY GARDNER Attending Unavailable ZEE JIMENEZ Attending Unavailable EzequielKeya Attending Unavailable Ezequiel, Keya Turner Admitting Unavailable Ezequiel, Keya Turner Attending Unavailable Al-MarDeb bravo Attending Unavailabl e Al-Marrawi, Bgd Yaser Admitting Unavailabl e Ezequiel, TAX SERVICES PROFESSIONAL Keya L Attending Unavailable Ezequiel, TAX SERVICES PROFESSIONAL Keya L Admitting Unavailable Al-Marrawi, Mhd Yaser Admitting Unavailabl e Al-Marrawi, Deb Yaser Attending Unavailabl e Ezequiel, TAX SERVICES PROFESSIONAL Keya Turner Attending Unavailable Al-Marrawi, Deb Yaser Attending Unavailabl e Al-Marrawi, Deb Yadaja Attending Unavailabl e Al-Marrawi, Mhd Yaser Admitting Unavailabl e Al-Marratutu, Mhd Yaser Referring Unavailabl e MICHELE LOZANO Attending Unavailable BARNEY LOZANO Attending Unavailable Ezequiel, Keya L Attending Unavailable Ezequiel, Keya L Admitting Unavailable Ezequiel, Keya L Attending Unavailable Ezequiel, Keya L Admitting Unavailable Ezequiel, Keya L Attending Unavailable Ezequiel, Keya L Admitting Unavailable Ezequiel, Keya L Attending Unavailable Al-Marrawi, Deb Yaser Admitting Unavailabl e Al-Marrawi, Deb Yaser Attending Unavailabl e Ezequiel, Keya L Attending Unavailable Ezequiel, Keya L Attending Unavailable Al-Marrawi, Deb Corbinser Attending Unavailabl e Al-Marrawi, Deb Lopez Attending Unavailabl e VinayMarty lyn Attending Unavailab Marty mAes Admitting Unavailab Melva Nunn Primary Care Unavailable Allergies Allergy ClassificationReported Allergen(s)Allergy TypeDate of OnsetReaction(s) Facility (13 sources)Amoxicillin; Translations: [Amoxicillin]Drug Ffftxok36-22-4934 Eruption of skin (disorder)[facility] (20 sources)Cephalexin; Translations: [cephalexin]Drug Xpisljy10-79-2673Mpks [facility] (4 sources)Lactose; Translations: [lactose]Drug Gjxpozb66-56-5611ZkvnajpeCincinnati [facility] (3 sources)Sulfonamides (Antibiotic); Translations: [Sulfa (Sulfonamide Antibiotics)]Allergy to -05-3748SmhlkYpdxlpgvyC[facility] (19 sources)Penicillins; Translations: [penicillins]Propensity to adverse reactions to qmke62-01-7317DvddANZHenrico Doctors' [facility] [employer] Phone: (20 sources)Sulfamethoxazole; Translations: [sulfamethoxazole]Drug Allergy 49-21-6249SekyDLSInova Women's Hospital [employer] Phone: (9 sources)Cephalexin; Translations: [Keflex]Drug Ienamkc66-17-8413LjoGrand [facility] (1 source)Sulfonamides (Antibiotic)Drug allergy (disorder)87-36-6665ItoGrand Lake Joint [facility] (1 source)Sulfonamides (Antibiotic); Translations: [sulfa drugs]Propensity to adverse reactions to drug (disorder)[facility] (12 sources)Penicillins; Translations: [penicillins]Drug Oinhgbbcndf76-12-2889 RashNOFreeman Health System (5 sources)Sulfonamides (Antibiotic)Drug Edblxix85-64-8600DlgkIKMA Healthcare Medications Current Medications MedicationDrug Class(es)DatesSig (Normalized)Sig (Original)Acetaminophen (20 sources)Start: 54-98-5287qprygtyepyfjj 500 mg, q6hr, PRN as needed for pain, Refills(s) 0 Start Date: 02/21/23 Status: Ordered Repeat number: 1Start: 82-12-2712ulthgitgiyqka 500 mg, q6hr, PRN as needed for pain, Refills(s) 0 Start Date: 02/21/23 Status: OrderedStart: 61-78-4986tzve 1 tablet by mouth every six hours as neededacetaminophen (Tylenol) 500 MG tablet Take 1 tablet by mouth every 6 (six) hours if needed. 09/07/2022 Activealendronic acid 70 mg oral tablet (19 sources)BisphosphonateStart: 15-60-4545lwodtokbxcw 70 mg Tab See Instructions, TAKE 1 TABLET BY MOUTH EVERY 7 DAYS, # 12 tab(s), Refills(s) 3, Pharmacy: [id number], 152, cm, 01/05/24 10:57:00 EDT, Height/Length Dosing, 76.6, kg, 01/05/24 10:57:00 EDT, Weight Dosing Start Date: 01/14/24 Status: Ordered Quantity: 12.0 Unit: tab(s) Repeat number: 1Start: 28-77-6709snvqvzgjxlg 70 mg Tab TAKE 1 TABLET BY MOUTH EVERY 7 DAYS Start Date: 01/05/24 Status: OrderedStart: 13-32-8364Bycptdr 70 mg Tab 70 mg = 1 tab(s), Oral, q7day, # 12 tab(s), Refills(s) 3, Pharmacy: [facility]/pharmacy #[id number], 153, cm, 02/21/23 11:33:00 EDT, Height/Length Dosing, 74.6, kg, 02/21/23 11:33:00 EDT, WeightDosing Start Date: 04/14/23 Status: OrderedStart: 58-79-4041nahl 1 tablet by mouth every week alendronate (Fosamax) 70 MG tablet Take 70 mg by mouth once a week 04/14/2023 Activeamitriptyline hydrochloride 10 mg oral tablet (2 sources)Tricyclic AntidepressantStart: 55-81-6954eqbi 10 mg by mouth at bedtimeAmitriptyline Active 10 MG PO Bedtime May 30, 2022 1:00amapixaban 5 mg oral tablet (11 sources)Factor Xa InhibitorStart: 11-23-5870lvxv 1 tablet by mouth twice dailyEliquis 5 mg oral tablet 5 mg = 1 tab(s), Oral, BID, # 60 tab(s), Refills(s) 0 Start Date: 06/15/24 Status: Ordered Quantity: 60.0 Unit: tab(s) Repeat number: 1take 2 tablets by mouth in the morningapixaban (Eliquis) 2.5 MG tablet Take 2 tablets by mouth in the morning and 2 tablets before bedtime. Activebenztropine mesylate 2 mg oral tablet (7 sources)Anticholinergic, Antihistaminetake 1 tablet by mouth in the morning benztropine (Cogentin) 2 MG tablet Take 1 tablet by mouth in the morning and 1 tablet before bedtime. Activebisacodyl 10 mg rectal suppository (2 sources)Stimulant LaxativeStart: 95-13-7253oeqpbuwhg 10 mg, Rectal, PRN as needed for constipation, Refills(s) 0 Start Date: 02/21/23 Status: Ordered bisoprolol fumarate 2.5 mg / hydroCHLOROthiazide 6.25 mg oral tablet (7 sources)Thiazide Diuretic, beta-Adrenergic BlockerStart: 27-64-2571pwec 1 tablet by mouth once dailyBisoprolol-Hydrochlorothiazide Active 1 TAB PO Daily May 30, 2022 1:00amcalcium chloride 0.001 meq/ml / glucose 50 mg/ml / potassium chloride 0.004 meq/ml / sodium chloride 0.103 meq/ml / sodium lactate 0.028 meq/ml injectable solution (1 source)Start: 15-53-9393dvfaqwph 5 % in lactated ringers infusion diphenhydrAMINE hydrochloride 25 mg oral capsule (7 sources)Histamine-1 Receptor AntagonistdiphenhydrAMINE (BENADryl) 25 MG capsule Take 25 mg by mouth. Activedocusate sodium 100 mg oral capsule (7 sources)Start: 61-96-1672lcuk 1 capsule by mouth in the morningDocusate Sodium (DSS) 100 MG capsule Take 1 capsule by mouth in the morning and 1 capsule before bedtime. 09/07/2022 Activeergocalciferol 1.25 mg oral capsule (14 sources)Provitamin D2 CompoundStart: 41-95-3235fgnc 1 capsule by mouth every weekergocalciferol 50,000 intl units Cap See Instructions, TAKE 1 CAPSULE BY MOUTH EVERY WEEK, # 12 cap(s), Refills(s) 1, Pharmacy: [facility] [id number], 152, cm, 06/15/24 14:32:00 EST, Height/Length Dosing, 77.8, kg, 06/15/24 14:32:00 EST, Weight Dosing Start Date: 06/16/24 Status: Ordered Quantity: 12.0 Unit: cap(s) Repeat number: 1Start: 91-67-7420llsh 1250 ug by mouth every weekErgocalciferol (Vitamin D2) Active 1250 MCG PO Q7D June 18, 2022 1:00amhaloperidol 5 mg oral tablet (20 sources)Typical AntipsychoticStart: 22-10-5513cbjtvavehdx 5 mg Tab 5 mg = 1 tab(s), Oral, BID, changed to BID 06/11/23, # 180 tab(s), Refills(s) 1, Pharmacy: [facility]/pharmacy #[id number], 152, cm, 08/05/23 13:39:00 EST, Height/Length Dosing, 77.1, kg, 08/05/23 13:39:00 EST, Weight Dosing Start Date: 08/06/23 Status: Ordered Quantity: 180.0 Unit: tab(s) Repeat number: 2haloperidol lactate (HALDOL) 5 MG/ML injection Inject into the muscle every 6 hours as needed for Agitation 0 ActiveHandicap Placard (15 sources)Start: 81-18-9241Avtyhawl Placard Handicap Placard, See Instructions, 1 EA, 0, 5 years, Supply Start Date: 02/21/23 Status: Ordered Quantity: 1.0 Unit: EA Repeat number: 1 Indications: Anxiety disorder, unspecified; Encounter for general adult medical examination without abnormal findings; Major depressive disorder,single episode, severe with psychotic features; Unspecified fall, initial encounter;Start: 77-37-1495Bieinlbg Placard Handicap Placard, See Instructions, 1 EA, 0, 5 years, Supply Start Date: 02/21/23 Status: OrderedhydroCHLOROthiazide 12.5 mg oral tablet (2 sources)Thiazide Diuretictake 0.5 tablet by mouth once daily as needed hydroCHLOROthiazide (HYDRODIURIL) 12.5 MG tablet Take 0.5 tablets by mouth daily as needed 0 ActiveHYDROmorphone hydrochloride 2 mg oral tablet (5 sources)Opioid AgonistStart: 56-06-7574NGZASdbvdncye (Dilaudid) 2 MG tablet 11/08/2022 Activeletrozole 2.5 mg oral tablet (13 sources)Aromatase InhibitorStart: 71-40-4443Edcghh 2.5 mg Tab See Instructions, Start Femara after radiation is complete. Take 1 tab daily., # 30 tab(s), Refills(s) 11, Pharmacy: [facility]/pharmacy #[id number], 152, cm, 03/15/24 11:13:00 EDT, Height/Length Dosing, 77.6, kg, 03/15/24 11:13:00 EDT, Weight Dosing Start Date: 04/27/24 Status: Ordered Quantity: 30.0 Unit: tab(s) Repeat number: 12 Indications: Other specified disorders of bone density and structure, unspecified site; Malignant neoplasm of lower-inner quadrant of right female breast;levothyroxine sodium 0.05 mg oral tablet (20 sources)l-ThyroxineStart: 68-09-7001xwau 1 tablet by mouth once daily levothyroxine 50 mcg (0.05 mg) Tab See Instructions, TAKE 1 TABLET BY MOUTH EVERY DAY, # 90 tab(s),Refills(s) 1, Pharmacy: [id number], 152, cm, 06/15/24 14:32:00 EST, Height/Length Dosing, 77.8, kg, 06/15/24 14:32:00 EST, Weight Dosing Start Date: 07/20/24 Status: Ordered Quantity: 90.0 Unit: tab(s) Repeat number: 1Start: 90-12-3292prlv 1 tablet by mouth once dailylevothyroxine 50 mcg (0.05 mg) Tab See Instructions, TAKE 1 TABLET BY MOUTH EVERY DAY, # 90 tab(s),Refills(s) 1, Pharmacy: [facility] [id number], 152, cm, 11/04/23 14:36:00 EDT, Height/Length Dosing, 79, kg, 11/04/23 14:36:00 EDT, Weight Dosing Start Date: 12/05/23 Status: OrderedStart: 26-01-1035warw 1 tablet by mouth once daily levothyroxine 50 mcg (0.05 mg) Tab 50 mcg = 1 tab(s), Oral, Daily, # 90 tab(s), Refills(s) 1, Pharmacy: [facility]/pharmacy #[id number], 152, cm, 06/24/23 13:38:00 EST, Height/Length Dosing, 77.3, kg, 06/24/23 13:38:00 EST, Weight Dosing Start Date: 08/05/23 Status: OrderedStart: 84-07-0899xjmb 1 tablet by mouth once daily levothyroxine 50 mcg (0.05 mg) Tab 50 mcg = 1 tab(s), Oral, Daily, # 90 tab(s), Refills(s) 1, [id number] 154.9, cm, 02/04/23 10:18:00 EDT, Height/Length Dosing, 75, kg, 02/04/23 10:18:00 EDT, Weight Dosing Start Date: 02/04/23 Status: Orderedtake 1 tablet by mouth in the morninglevothyroxine (Synthroid, Levoxyl) 50 MCG tablet Take 50 mcg by mouth in the morning. Active take 0.5 tablet by mouth once dailylevothyroxine (SYNTHROID) 100 MCG tablet Take 0.5 tablets by mouth Daily 0 Activelidocaine 0.05 mg/mg medicated patch (4 sources)Antiarrhythmic, Amide Local AnestheticStart: 82-67-8711jftpjbvuu Top 5% film Patch 1 patch(es), Topical, Daily, 30 patch(es), Refill(s) 1, apply 12 hours on and 12 hours off daily, [facility]/pharmacy #[id number], 152, cm, 11/04/23 14:36:00 EDT, Height/Length Dosing,79, kg, 11/04/23 14:36:00 EDT, Weight Dosing Start Date: 11/04/23 Status: OrderedLORazepam 1 mg oral tablet (4 sources)Benzodiazepinetake 1 tablet by mouth every six hours as needed for anxietyLORazepam (ATIVAN) 1 MG tablet Take 1 tablet by mouth every 6 hours as needed for Anxiety. Max Daily Amount: 4 mg 0 ActiveLORazepam (ATIVAN) 2 MG/ML injection Inject 0.5 mLs into the muscle every 6 hours as needed. Max Daily Amount: 4 mg 0 ActivemetroNIDAZOLE 500 mg oral tablet (2 sources)Nitroimidazole AntimicrobialStart: 76-70-1006pkuq 500 mg by mouth twice dailyMetronidazole Active 500 MG PO Twice daily June 18, 2022 1:00ammiconazole nitrate 20 mg/ml vaginal cream (2 sources)Azole AntifungalStart: 53-73-2778Jivgwnnpve Nitrate (Miconazole-7) 2 % Cream Active 1 APPLICATOR VAGINAL Daily at bedtime 2022 1:00am last dose 06/21/22Misc Medication (7 sources)Start: 42-94-1316Yidl Medication calcium Start Date: 02/24/24 Status: Ordered Repeat number: 1Start: 06-03-9623Msrh Medication calcium Start Date: 02/24/24 Status: Orderedmicroencapsulated potassium chloride 20 meq extended release oral tablet (4 sources)Start: 94-35-3234Jgttalpwq Chloride (Klor-Con M20) 20 mEq Tablet,Er Particles/Crystals Active 20 MEQ PO Daily June 11, 2022 1:00amtake 20 mEq by mouth twice dailypotassium chloride (KLOR-CON) 20 MEQ packet Take 20 mEq by mouth 2 times daily 0 ActiveQUEtiapine 25 mg oral tablet (20 sources)Atypical AntipsychoticStart: 72-14-9070ekcl 1 tablet by mouth once dailyquetiapine 25 mg Tab See Instructions, TAKE 1 TABLET BY MOUTH EVERY DAY, # 90 tab(s), Refills(s) 1,Pharmacy: [id number], 152, cm, 01/05/24 10:57:00 EDT, Height/Length Dosing, 76.6, kg, 01/04/2410:57:00 EDT, Weight Dosing Start Date: 01/14/24 Status: Ordered Quantity: 90.0 Unit: tab(s) Repeat number: 1Start: 44-72-6580zjoo 1 tablet by mouth once dailyquetiapine 50 mg oral tablet 50 mg = 1 tab(s), Oral, Daily, # 90 tab(s), Refills(s) 1, Pharmacy: [facility]/pharmacy #[id number], 152, cm, 11/04/23 14:36:00 EDT, Height/Length Dosing, 79, kg, 11/04/23 14:36:00 EDT, Weight Dosing Start Date: 11/18/23 Status: OrderedrisperiDONE 3 mg oral tablet (12 sources)Atypical AntipsychoticStart: 86-56-9651bdop 1 mg by mouth once daily Risperidone Active 1 MG PO Daily June 11, 2022 1:00amStart: 34-81-8964lrzh 3 mg by mouth at bedtimeRisperidone Active 3 MG PO Bedtime June 11, 2022 1:00amStart: 05-30-2022 End: 35-23-1187upjy 2 mg by mouth at bedtimeRisperidone Discontinued 0.5 MG PO Bedtime May 30, 2022 1:00am June 11, 2022 9:35am give with 2mg dose Start: 05-30-2022 End: 04-55-4017mimq 2 mg by mouth at bedtimeRisperidone Discontinued 2 MG PO Bedtime May 30, 2022 1:00am June 11, 2022 9:35amrisperiDONE microspheres ER (RISPERDAL CONSTA) 25 MG SRER injection Inject 2 mLs into the muscle every 14 days 0 Activesennosides, nursing home 8.6 mg oral tablet (13 sources)Start: 31-80-6844ptdyixdbcp (Senokot) 8.6 MG tablet Take 8.6 mg by mouth. 02/04/2023 ActiveStart: 06-34-9594gdoe 1 tablet by mouth once daily at bedtime as needed for constipationsenna 8.6 mg Tab 8.6 mg = 1 tab(s), Oral, Once a day (at bedtime), PRN as needed for constipation, # 25 tab(s), Refills(s) 5, Pharmacy: [facility]/pharmacy #[id number], 153, cm, 02/21/23 11:33:00 EDT, Height/Length Dosing, 74.6, kg, 02/21/23 11:33:00 EDT, Weight Dosing Start Date: 06/11/23 Status: Orderedvancomycin 125 mg oral capsule (5 sources)Glycopeptide AntibacterialStart: 44-24-6686aaklneiozn (Vancocin) 125 MG capsule 12/12/2022 Activeziprasidone 20 mg oral capsule (2 sources)Atypical AntipsychoticStart: 80-90-3027rlmp 20 mg by mouth twice dailyZiprasidone Hcl Active 20 MG PO Twice daily 60 30 June 18, 2022 1:00am Completed/Discontinued Medications MedicationDrug Class(es)DatesSig (Normalized)Sig (Original)ARIPiprazole 5 mg oral tablet (2 sources)Atypical AntipsychoticStart: 05-30-2022 End: 83-14-8863ltet 5 mg by mouth once dailyAripiprazole Discontinued 5 MG PO Daily May 30, 2022 1:00am June 11, 2022 9:78ay471 ml ciprofloxacin 2 mg/ml injection (3 sources)Quinolone AntimicrobialStart: 10-08-2022 End: 16-75-2070vrqqnbzwezgbm (CIPRO) IVPB 400 mgtake 1 tablet by mouth twice dailyciprofloxacin (CIPRO) 500 MG tablet Take 1 tablet by mouth 2 times daily 0 ActiveVitamin D 50,000 intl units (1.25 mg) oral capsule (7 sources)Start: 10-12-6358pxnr 1 capsule by mouth every weekVitamin D 50,000 intl units (1.25 mg) oral capsule 50,000 International_Unit = 1 cap(s), Oral, qWeek, # 4 cap(s), Refills(s) 3, Pharmacy: [facility]/pharmacy #[id number], 152, cm, 10/06/23 14:29:00 EDT, Height/Length Dosing, 78.9, kg, 10/06/23 14:29:00 EDT, Weight Dosing Start Date: 10/28/23 Status: OrderedStart: 43-77-3464zrwm 1 capsule by mouth every weekVitamin D 50,000 intl units (1.25 mg) oral capsule 50,000 International_Unit = 1 cap(s), Oral, qWeek, # 4 cap(s), Refills(s) 3, Pharmacy: [facility]/pharmacy #[id number], 152, cm, 09/03/23 14:19:00 EDT, Height/Length Dosing, 78.3, kg, 09/03/23 14:19:00 EDT, Weight Dosing Start Date: 10/03/23 Status: Ordered Start: 83-91-4978xhrv 1 capsule by mouth every weekVitamin D 50,000 intl units (1.25 mg) oral capsule 50,000 International_Unit = 1 cap(s), Oral, qWeek, # 4 cap(s), Refills(s) 3, Pharmacy: [facility]/pharmacy #[id number], 152, cm, 06/24/23 13:38:00 EST, Height/Length Dosing, 77.3, kg, 06/24/23 13:38:00 EST, Weight Dosing Start Date: 06/24/23 Status: Ordered Problems Active Problems Problem ClassificationProblemDateDocumented DateEpisodic/ChronicAbdominal pain (6 sources)Pain in kowxsj85-00-1376DjgqqhhzDlvjsfi disorders (18 sources)Anxiety disorder, unspecified; Translations: [Anxiety disorder] Onset: 286206-36-0364InalupsYmmiibjcb infection; unspecified site (2 sources)Klebsiella pneumoniae [K. pneumoniae] as the cause of diseases classified elsewhere; Translations: [Unspecified Escherichia coli [E. coli] as the cause of diseases classified elsewhere]Onset: 17-49-7840DfcmxmdzQibukr of breast (20 sources)Malignant neoplasm of unspecified site of right female breast; Translations: [Infiltrating duct carcinoma of breast]Onset: 72-98-8128Rybtrwy Cardiac dysrhythmias (8 sources)Unspecified atrial fibrillation; Translations: [Paroxysmal atrial fibrillation]Onset: 26-84-4563ScgnrebFbzobnh dysrhythmias (3 sources)Bradycardia, unspecified; Translations: [Tachycardia, unspecified] Onset: 97-82-2020IahufajeCkkfjbzj (2 sources)After-cataract of bilateral eyes; Translations: [Other secondary cataract, bilateral]75-25-1997SwutvwcDtkrkmj kidney disease (1 source)Chronic kidney disease; Translations: [CHRONIC KIDNEY DISEASE STAGE 3B]Onset: 06-11-6390Pxbrsusqrhw and hemorrhagic disorders (1 source)Thrombocytopenia, unspecified; Translations: [THROMBOCYTOPENIA UNSPECIFIED]Onset: 48-94-0433BhkdekiKtom; stupor; and brain damage (1 source)Daytime lgfpdyxruo86-48-2938HmxzcbwmBnyiwlqplk and other anemia (2 sources)Anemia; Translations: [Anemia, unspecified]09-50-7498Enurphbf Deficiency and other anemia (2 sources)Anemia, unspecified; Translations: [Anemia, unspecified]Onset: 027242-33-1055MzjshjorQpjzcjih, dementia, and amnestic and other cognitive disorders (1 source)Unspecified dementia without behavioral disturbance; Translations: [UNSP JAMEY UNS SEV W/O DSTRB ANXTY]Onset: 34-31-5533YzcvqnaSkuzzgvh of mouth; excluding dental (1 source)Dribbling from rhatb79-69-1066GpmczpruTlwzjeznh of lipid metabolism (18 sources)Hyperlipidemia, unspecified; Translations: [Hyperlipidemia]Onset: 362075-79-8233XvwjdewRkeruqwhk hypertension (20 sources)Hypertensive disorder; Translations: [Essential (primary) hypertension]Onset: 817785-15-7164WjanoicBrbuo and electrolyte disorders (8 sources)Hypokalemia; Translations: [Hypokalemia]Onset: EpisodicHeart valve disorders (2 sources)Nonrheumatic mitral (valve) insufficiency; Translations: [Nonrheumatic mitral (valve) insufficiency]Onset: 81-15-4505VtszizyNrsxcbflomep with complications and secondary hypertension (1 source)Hypertensive chronic kidney disease with stage 1 through stage 4 chronic kidney disease, or unspecified chronic kidney disease; Translations: [HTN CKD W/STAGE 1-4 CKD/UNS CKD]Onset: 55-24-6518AvpxvgwYnjojtbvawlr diseases of female pelvic organs (3 sources)Vaginitis; Translations: [Acute vaginitis]92-22-7415EcodtmafBrpckmi and fatigue (20 sources)Other fatigue; Translations: [Fatigue]Onset: 76-64-0583Qtsxofpa Menopausal disorders (1 source)Hormone replacement therapy; Translations: [HORMONE REPLACEMENT THERAPY]Onset: 50-32-2461ZresdozhGzkkygxnhdren mental health disorders (6 sources)Confusional garkb82-14-7125XrrxlyzSjuu disorders (20 sources)Depressive disorder; Translations: [Major depression with psychotic features]17-32-7282CyorvwuPhnb disorders (1 source)Mood disorders; Translations: [DEPRESSION UNSPECIFIED]Onset: 97-93-9129Avxrffjhyhub breast conditions (17 sources)Breast signs and symptoms; Translations: [Other signs and symptoms in breast]Onset: 22-55-7444UbjbajkxVinqvchtlgf deficiencies (16 sources)Vitamin D xddcgwbafg99-36-7168WthqutrPpsga aftercare (5 sources)Other usp (current) drug therapy; Translations: [OTH FUEL QUALITY TECH CURRENT DRUG THERAPY]Onset: 67-46-0185KkbsznrvNusvg bone disease and musculoskeletal deformities (17 sources)Kvxtphyosl54-18-7469PudxkampSdmdc bone disease and musculoskeletal deformities (3 sources)Disorder of bone; Translations: [Other specified disorders of bone density and structure, unspecified site]Onset: 80-13-1772UirmpacyAzwmq connective tissue disease (2 sources)Otdcb29-04-6194QkbkqvhvZlnzf endocrine disorders (1 source)Hypoglycemia, unspecified; Translations: [HYPOGLYCEMIA UNSPECIFIED] Onset: 74-69-0287XdxjereCotib female genital disorders (6 sources)History of gynecological hvtlsehl83-04-6951NawilxllGnuwz gastrointestinal disorders (17 sources)Irritable bowel syndromeOnset: 584393-22-4480DgzcnqtVfltz injuries and conditions due to external causes (13 sources)History of kwku11-17-7745BviwdjaoRpfaf lower respiratory disease (1 source)Gasping for ycbmey56-91-3271RuhkrehdEztpj nervous system disorders (1 source)Metabolic encephalopathy; Translations: [METABOLIC ENCEPHALOPATHY] Onset: 03-05-6725FuceipqYgusj nervous system disorders (5 sources)Impaired tsnjulxrn29-89-9696PntbqwxuPfsxf nutritional; endocrine; and metabolic disorders (1 source)Obesity, unspecified; Translations: [OBESITY UNSPECIFIED]Onset: 75-63-9981TrteizpGtglw nutritional; endocrine; and metabolic disorders (1 source)Body mass index (BMI) 31.0-31.9, adult; Translations: [BODY MASS INDEX BMI 31.0-31.9 ADULT]Onset: 35-10-8870PprwrztVdzuo nutritional; endocrine; and metabolic disorders (20 sources)Body mass index 30+ - eitintr98-44-9018NoifpfiRbibf nutritional; endocrine; and metabolic disorders (15 sources)Chgqcit30-37-1914EwoxnibUlkqa nutritional; endocrine; and metabolic disorders (1 source)Body mass index (BMI) 26.0-26.9, adult; Translations: [BODY MASS INDEX BMI 26.0-26.9 ADULT]Onset: 01-19-3966DnaxqqfpDxfnodoy codes; unclassified (20 sources)Obstructive sleep apnea syndrome; Translations: [Obstructive sleep apnea (adult) (pediatric)]Onset: 295850-29-9440SdlvmkbQtlaobmx codes; unclassified (6 sources)Hypersomnia; Translations: [Hypersomnia, unspecified]Onset: 753669-74-1638JagynxvKorbfqlg codes; unclassified (2 sources)Confusional state; Translations: [Disorientation, unspecified] 62-90-6570MpnvzelzMemheqhe codes; unclassified (2 sources)Neurocognitive disorder; Translations: [Unspecified symptoms and signs involving cognitive functions and awareness]91-43-0712MzookluqSnzqzfft codes; unclassified (3 sources)Altered mental status; Translations: [Altered mental status, unspecified]26-56-4883HpcztpxbHvqyjyyh codes; unclassified (7 sources)Altered mental status, unspecified; Translations: [Altered mental status]Onset: 548222-78-5249XisqbxshZsmtgfjy codes; unclassified (1 source)Disorientation, unspecified; Translations: [Unspecified psychosis] 69-60-5070RmtfcwqxJfdgsqry codes; unclassified (1 source)Unspecified symptoms and signs involving cognitive functions and awareness; Translations: [Unspecified persistent mental disorders due to conditions classified elsewhere]84-18-4674DgcpdpdzGpxzbupa codes; unclassified (1 source)Hypothermia, not associated with low environmental temperature; Translations: [HYPOTHERMIA NOT W/LOW ENVIR TEMP]Onset: 05-50-2690Mfictyyd Residual codes; unclassified (17 sources)Klilwkc61-51-0732BldulswnRucjzogkfvzom and other psychotic disorders (20 sources)Schizophrenia; Translations: [Schizophrenia, unspecified]Onset: 628769-55-5584OtnmghlMnwamlo disorders (20 sources)Hypothyroidism, unspecified; Translations: [Hypothyroidism]Onset: 19-07-5906BqjrjjbFkppnmeutngy (4 sources)CONTACT W/AND (SUSP) EXPOS COVID-19; Translations: [CONTACT W/AND (SUSP) EXPOS COVID-19]Onset: 18-48-6611Vyfhknmhxknd (1 source)CHRN KIDNEY DISEASE STG 3 UNSP; Translations: [CHRN KIDNEY DISEASE STG 3 UNSP]Onset: 87-27-2182Ymwpvnhiqlql (20 sources)Patient encounter phigbq17-23-1409Tnxepkklmobk (13 sources)Pain of right shoulder pffwyq01-59-4806Vyxnftxakilx (6 sources)Cancer cervix screening eblazs41-23-6377Utrvbttjeryo (5 sources)Awl-pqipmp77-61urvyat18-27-6072Keewlhr tract infections (13 sources)Urinary tract infectious disease; Translations: [Urinary tract infection, site not specified]Onset: 324920-07-7984TaongymeDfgtd infection (1 source)COVID-19; Translations: [COVID-19]Onset: 12-19-2021 Past or Other Problems Problem ClassificationProblemDateDocumented DateEpisodic/ChronicAcute and unspecified renal failure (1 source)Acute kidney failure, unspecified; Translations: [ACUTE KIDNEY FAILURE UNSPECIFIED]Onset: 48-94-7889UvqlsqywW Codes: Fall (1 source)Fall in (into) shower or empty bathtub, initial encounter; Translations: [FALL IN SHOWER/EMPTY BATHTUB INIT]Onset: 10-05-6637MuntentvM Codes: Natural/environment (1 source)Exposure to other specified factors, initial encounter; Translations: [EXPOSURE OTHER SPEC FACTORS INITIAL]Onset: 47-34-9685AbjtfhtuBjoixrfoslnba symptoms and ill-defined conditions (3 sources)Hematuria, unspecified; Translations: [HEMATURIA UNSPECIFIED]Onset: 17-30-2885TbgdgnuiFawkjebxckemo and screening for infectious disease (1 source)Encounter for immunization; Translations: [ENCOUNTER FOR IMMUNIZATION] Onset: 49-52-5207GpddmkwvPjkh wounds of head; neck; and trunk (4 sources)Laceration without foreign body of other part of head, initial encounter; Translations: [LAC W/O FBOTH PART HEAD INIT ENC]Onset: 12-15-2021 EpisodicOther injuries and conditions due to external causes (1 source)Hypothermia, initial encounter; Translations: [HYPOTHERMIA INITIAL ENCOUNTER]Onset: 37-54-1004VihylraqAegdl lower respiratory disease (6 sources)Hypoxia; Translations: [Hypoxemia]Onset: 135020-01-2358Obghygts Other lower respiratory disease (6 sources)Snoring; Translations: [Snoring]Onset: 417441-65-4984Dotplepv Other screening for suspected conditions (not mental disorders or infectious disease) (4 sources)Encounter for screening mammogram for malignant neoplasm of breast; Translations: [ENC SCR MAMMO MALIG NEOPLASM BREAST]Onset: 31-73-0316Wgntncnl Pneumonia (except that caused by tuberculosis or sexually transmitted disease) (1 source)Pneumonia, unspecified organism; Translations: [PNEUMONIA UNSPECIFIED ORGANISM]Onset: 61-68-9561KbvqurlyKjvkzyxp codes; unclassified (1 source)Family history of malignant neoplasm of digestive organs; Translations: [FAM HX MALIG NEOPLASM DIGESTIV ORGN]Onset: 89-08-5420Wnzlgtkk Residual codes; unclassified (1 source)Family history of malignant neoplasm of other genital organs; Translations: [FAM HX MALIG NEOPLSM OTH GENIT ORGN]Onset: 88-29-3982Abrhxncu Residual codes; unclassified (1 source)Family history of ischemic heart disease and other diseases of the circulatory system; Translations: [FAM HX ISCHEMIC HRT DZ OTH DZ CIRC]Onset: 94-79-4267ReblusecTtcusxyg codes; unclassified (1 source)Physical restraint status; Translations: [PHYSICAL RESTRAINT STATUS] Onset: 31-73-1384TnzjmzglYaghsdyp codes; unclassified (1 source)Family history of malignant neoplasm of breast; Translations: [FAMILY HX MALIG NEOPLASM OF BREAST]Onset: 91-04-1685YobqgznhZpchkifz codes; unclassified (1 source)Family history of malignant neoplasm of trachea, bronchus and lung; Translations: [FAM HX MALIG NEOPLSM TRACH BRON LNG]Onset: 15-40-3369Mcznbtvk Residual codes; unclassified (1 source)Family history of malignant neoplasm of prostate; Translations: [FAMILY HX MALIG NEOPLASM PROSTATE]Onset: 37-39-4241TxtelosuPucbrijgyqmj (1 source)CONTACT W/AND (SUSP) EXPOS COVID-19; Translations: [CONTACT W/AND (SUSP) EXPOS COVID-19]Onset: 05-06-2022 Results Test NameValueInterpretationReference RangeFacilityT3 Freeon 81-25-6263Eken T3 [Mass/Vol]4.7 pg/mLHigh2.0-4.4[facility] Orthopaedic InstituteComment on above:Result Comment: Performed at: [facility] [address] [id number] PhD Nazanin NolascoPerformed By: #### [id number] #### [facility] [address], [place] [address]Sbhzjyuwenn 25-60-5301MuwcfpxktBjrvrkstl From: Keya Lucas To: [facility] - Clinical; Sent: 02/24/2025 08:17:23 EDT Show up: 02/24/2025 08:17:00 EDT Subject: Ambulatory Reminder Due Date/Time: 02/25/2025 08:16:00 EDT Her thyroid levels are off so we need to decrease her synthroid dose. I will send new dose to pharmacy. she is also iron deficient. I will send in iron supplements to pharmacy as well. hopefully making these adjustments will help with her fatigue Results: Date Result Name Ind Value Ref Range 02/23/2025 9:21 WBC 4.8 E9/L (4.0 - 11.0) 02/23/2025 9:21 RBC (L) 3.8 E12/L (4.3 - 5.9) 02/23/2025 9:21 HGB (L) 11.5 gm/dL (12.0 - 16.0) 02/23/2025 9:21 Hct 34.0 % (34.0 - 46.0) 02/23/2025 9:21 MCV 89.7 fL (80.0 - 100.0) 02/23/2025 9:21 MCH 30.4 pg (27.0 - 34.0) 02/23/2025 9:21 MCHC 33.9 gm/dL (31.4 - 36.0) 02/23/2025 9:21 RDW 13.9 % (10.9 - 14.2) 02/23/2025 9:21 Platelet 234.0 E9/L (150.0 - 500.0) 02/23/2025 9:21 MPV 8.5 fL (6.4 - 10.8) 02/23/2025 9:21 Neutro Auto 56.2 % (36.0 - 75.0) 02/23/2025 9:21 Lymph Auto 33.9 % (14.0 - 50.0) 02/23/2025 9:21 [place] Auto 6.9 % (4.0 - 14.0) 02/23/2025 9:21 Eos Auto 2.1 % (0.0 - 8.0) 02/23/2025 9:21 Basophil Auto 0.9 % (0.0 - 2.0) 02/23/2025 9:21 Neutro Absolute 2.7 E9/L (2.0 - 7.5) 02/23/2025 9:21 Lymph Absolute 1.6 E9/L (1.0 - 4.0) 02/23/2025 9:21 [place] Absolute 0.3 E9/L (0.2 - 1.0) 02/23/2025 9:21 Eos Absolute 0.1 E9/L (0.0 - 0.5) 02/23/2025 9:21 Basophil Absolute 0.0 E9/L (0.0 - 0.2) 02/23/2025 9:21 Glucose Lvl 78 mg/dL (55 - 199) 02/23/2025 9:21 BUN (H) 29 mg/dL (5 - 21) 02/23/2025 9:21 Creatinine 1.3 mg/dL (0.5 - 1.3) 02/23/2025 9:21 eGFR (L) 44 mL/min/1.73 m2 (>=59 - ) 02/23/2025 9:21 BUN/Creat Ratio (H) 22 (10 - 20) 02/23/2025 9:21 Sodium Lvl 142 mmol/L (135 - 145) 02/23/2025 9:21 Potassium Lvl 4.4 mmol/L (3.5 - 5.3) 02/23/2025 9:21 Chloride 105 mmol/L (101 - 111) 02/23/2025 9:21 CO2 31 mmol/L (21 - 31) 02/23/2025 9:21 AGAP 10 mEq/L (6 - 16) 02/23/2025 9:21 Calcium Lvl 10.5 mg/dL (8.9 - 11.1) 02/23/2025 9:21 Alk Phos (H) 104 Int._Unit/L (21 - 98) 02/23/2025 9:21 ALT 21 Int._Unit/L (6 - 46) 02/23/2025 9:21 AST 20 Int._Unit/L (5 - 43) 02/23/2025 9:21 Total Protein 7.5 gm/dL (6.0 - 7.8) 02/23/2025 9:21 Albumin Lvl 4.1 gm/dL (3.3 - 5.0) 02/23/2025 9:21 Globulin 3.4 gm/dL (1.4 - 4.0) 02/23/2025 9:21 A/G Ratio 1.2 (1.1 - 2.2) 02/23/2025 9:21 Bili Total 0.7 mg/dL (0.0 - 1.1) 02/23/2025 9:21 Iron 96 mcg/dL (35 - 153) 02/23/2025 9:21 Transferrin 293 mg/dL (200 - 370) 02/23/2025 9:21 TIBC (H) 410 mcg/dL (250 - 400) 02/23/2025 9:21 TSH (L) 0.01 mcIU/mL (0.34 - 5.60) 02/23/2025 9:21 T4 Free (H) 1.65 ng/dL (0.58 - 1.64) 02/23/2025 9:21 Vitamin D 25 Hydroxy 77.8 ng/mL (30.0 - 100.0) 02/23/2025 9:21 Ferritin Lvl 128 ng/mL (11 - 307) Freddy called, HIPPA, and given information. Verbalized understanding. [facility] Summaryon [id number] Visit SummaryAmbulatory Visit Summary MARLEY OSBORN :1955 Visit Date:02/23/2025 Ambulatory Visit Instructions Your Diagnosis Right otitis media Chronic kidney disease, stage 3b Paroxysmal atrial fibrillation Pale Fatigue Invasive ductal carcinoma of right breast BMI 34.0-34.9,adult Nonsmoker Your Care Team Attending Physician - Keya Lucas Primary Care Physician - Keya Lucas This Is Your Medications List Misc Prescription (Handicap Placard) Non-Formulary Medication (Misc Medication) acetaminophen alendronate (alendronate 70 mg Tab) apixaban (Eliquis 5 mg oral tablet) azithromycin (azithromycin 250 mg Tab) ergocalciferol (ergocalciferol 50,000 intl units Cap) haloperidol (haloperidol 5 mg Tab) letrozole (Femara 2.5 mg Tab) levothyroxine (levothyroxine 100 mcg (0.1 mg) Tab) methylPREDNISolone (Medrol 4 mg Tab) quetiapine (quetiapine 25 mg Tab) Procedures Performed Lumpectomy of right breast (12/17/2023), Biopsy of breast (06/2023), Biopsy of breast (05/2023), Cataract (06/02/2019), Colonoscopy (01/2019), CEIOL - Cataract extraction and insertion of intraocularlens (04/28/2017), Biopsy of breast, Tonsillectomy and adenoidectomy. Discharge Vitals Temperature (Temporal Artery) 36.3 ???C Heart Rate (Peripheral) 56 Respiratory Rate 18 Blood Pressure 122/84 Height 152.0 cm Height 60 in Weight 79.9 kg Weight 176.149 lb BMI 34.58 What to do next Scheduled Follow-Up Appointments Friday 1:00 PM EST With: Thien ROPER, Deb Lopez Where: [facility] You Need to Complete the Following B-Type Natriuretic Peptide, Blood, Routine collect, 02/23/25, Order for future visit, Lab Collect, Chronic kidney disease, stage 3b Hypertensive chronic kidney disease Paroxysmal atrial fibrillation Osteoporosis BMI 34.0- 34.9,adult Nonsmoker Pale Fatigue, Required... Medications What How Much When Why Instructions New azithromycin (azithromycin 250 mg Tab) 1 Packets By Mouth As Directed Right otitis media Chronic kidney disease, stage 3b Hypertensive chronic kidney disease Paroxysmal atrial fibrillation Osteoporosis Pale Fatigue BMI 34.0- 34.9,adult Nonsmoker Duration: 5 Days as directed on package labeling Pickup at [facility]/pharmacy #[id number] New methylPREDNISolone (Medrol 4 mg Tab) 1 Packets By Mouth As Directed Right otitis media Chronic kidney disease, stage 3b Hypertensive chronic kidney disease Paroxysmal atrial fibrillation Osteoporosis Pale Fatigue BMI 34.0- 34.9,adult Nonsmoker Duration: 6 Days as directed on package labeling Pickup at [facility]/pharmacy #[id number] Unchanged acetaminophen 500 Milligram Every 6 hours as needed for as needed for pain Unchanged alendronate (alendronate 70 mg Tab) See instructions TAKE 1 TABLET BY MOUTH EVERY 7 DAYS Unchanged apixaban (Eliquis 5 mg oral tablet) 1 Tablets By Mouth 2 times a day Unchanged ergocalciferol (ergocalciferol 50,000 intl units Cap) See instructions TAKE 1 CAPSULE BY MOUTH EVERY WEEK Unchanged haloperidol (haloperidol 5 mg Tab) 1 Tablets By Mouth Every day changed to BID Unchanged letrozole (Femara 2.5 mg Tab) See instructions Invasive ductal carcinoma of right breast Osteopenia Start Femara after radiation is complete. Take 1 tab daily. Unchanged levothyroxine (levothyroxine 100 mcg (0.1 mg) Tab) See instructions TAKE 1 TABLET BY MOUTH EVERY DAY Unchanged Misc Prescription (Handicap Placard) See instructions Annual visit for general adult medical examination without abnormal findings Anxiety disorder Major depression with psychotic features Fall 5 years Unchanged Non-Formulary Medication (Misc Medication) calcium Unchanged quetiapine (quetiapine 25 mg Tab) See instructions TAKE 1 TABLET BY MOUTH EVERY DAY Pharmacy Information [facility]/pharmacy #[id number]: [address], [place] [id number] [phone] Allergies Keflex (rash) penicillins (rash) sulfamethoxazole (rash) Problems Ongoing - Any problem that you are currently receiving treatment for. 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 Depression Hypothyroidism IBS - Irritable bowel syndrome Paranoid schizophrenia Screening for hyperlipidemia Wellness examination Patient Survey You may rece (more content not included)...[facility] Visit SummaryAmbulatory Visit Summary MARLEY OSBORN :1955 Visit Date:02/23/2025 Ambulatory Visit Instructions Your Diagnosis Right otitis media Chronic kidney disease, stage 3b Paroxysmal atrial fibrillation Pale Fatigue BMI 34.0-34.9,adult Nonsmoker Your Care Team Attending Physician - Keya Lucas Primary Care Physician - Keya Lucas This Is Your Medications List Misc Prescription (Handicap Placard) Non-Formulary Medication (Misc Medication) acetaminophen alendronate (alendronate 70 mg Tab) apixaban (Eliquis 5 mg oral tablet) azithromycin (azithromycin 250 mg Tab) ergocalciferol (ergocalciferol 50,000 intl units Cap) haloperidol (haloperidol 5 mg Tab) letrozole (Femara 2.5 mg Tab) levothyroxine (levothyroxine 100 mcg (0.1 mg) Tab) methylPREDNISolone (Medrol 4 mg Tab) quetiapine (quetiapine 25 mg Tab) Procedures Performed Lumpectomy of right breast (12/17/2023), Biopsy of breast (06/2023), Biopsy of breast (05/2023), Cataract (06/02/2019), Colonoscopy (01/2019), CEIOL - Cataract extraction and insertion of intraocularlens (04/28/2017), Biopsy of breast, Tonsillectomy and adenoidectomy. Discharge Vitals Temperature (Temporal Artery) 36.3 ???C Heart Rate (Peripheral) 56 Respiratory Rate 18 Blood Pressure 122/84 Height 152.0 cm Height 60 in Weight 79.9 kg Weight 176.149 lb BMI 34.58 What to do next Scheduled Follow-Up Appointments Friday 1:00 PM EST With: Thien ROPER, Deb Lopez Where: [facility] You Need to Complete the Following B-Type Natriuretic Peptide, Blood, Routine collect, 02/23/25, Order for future visit, Lab Collect, Chronic kidney disease, stage 3b Hypertensive chronic kidney disease Paroxysmal atrial fibrillation Osteoporosis BMI 34.0- 34.9,adult Nonsmoker Pale Fatigue, Required... Medications What How Much When Why Instructions New azithromycin (azithromycin 250 mg Tab) 1 Packets By Mouth As Directed Right otitis media Chronic kidney disease, stage 3b Hypertensive chronic kidney disease Paroxysmal atrial fibrillation Osteoporosis Pale Fatigue BMI 34.0- 34.9,adult Nonsmoker Duration: 5 Days as directed on package labeling Pickup at [facility]/pharmacy #[id number] New methylPREDNISolone (Medrol 4 mg Tab) 1 Packets By Mouth As Directed Right otitis media Chronic kidney disease, stage 3b Hypertensive chronic kidney disease Paroxysmal atrial fibrillation Osteoporosis Pale Fatigue BMI 34.0- 34.9,adult Nonsmoker Duration: 6 Days as directed on package labeling Pickup at [facility]/pharmacy #[id number] Unchanged acetaminophen 500 Milligram Every 6 hours as needed for as needed for pain Unchanged alendronate (alendronate 70 mg Tab) See instructions TAKE 1 TABLET BY MOUTH EVERY 7 DAYS Unchanged apixaban (Eliquis 5 mg oral tablet) 1 Tablets By Mouth 2 times a day Unchanged ergocalciferol (ergocalciferol 50,000 intl units Cap) See instructions TAKE 1 CAPSULE BY MOUTH EVERY WEEK Unchanged haloperidol (haloperidol 5 mg Tab) 1 Tablets By Mouth Every day changed to BID Unchanged letrozole (Femara 2.5 mg Tab) See instructions Invasive ductal carcinoma of right breast Osteopenia Start Femara after radiation is complete. Take 1 tab daily. Unchanged levothyroxine (levothyroxine 100 mcg (0.1 mg) Tab) See instructions TAKE 1 TABLET BY MOUTH EVERY DAY Unchanged Misc Prescription (Handicap Placard) See instructions Annual visit for general adult medical examination without abnormal findings Anxiety disorder Major depression with psychotic features Fall 5 years Unchanged Non-Formulary Medication (Misc Medication) calcium Unchanged quetiapine (quetiapine 25 mg Tab) See instructions TAKE 1 TABLET BY MOUTH EVERY DAY Pharmacy Information [facility]/pharmacy #[id number]: [address], [place] [id number] [phone] Allergies Keflex (rash) penicillins (rash) sulfamethoxazole (rash) Problems Ongoing - Any problem that you are currently receiving treatment for. 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 Depression Hypothyroidism IBS - Irritable bowel syndrome Paranoid schizophrenia Screening for hyperlipidemia Wellness examination Patient Survey You may receive a survey via text or e-mail asking about (more content not included)...[facility] w/ Auto Diffon 02-23-2025 Basophil Absolute0.0 E9/LNormal0.0-0.2FPremier HealthComment on above:Performed By: #### [id number] #### [facility] [address], [place] [address]Efhzljqdt/100 WBC (Bld)0.9 %Normal0.0-2.0Mercy HospitalComment on above:Performed By: #### [id number] #### [facility] [address], [place] [address]Mst Absolute0.1 E9/LNormal0.0-0.5FPremier Health Comment on above:Performed By: #### [id number] #### [facility] [address], [place] [address]Zmgmbuqfwlc/100 WBC (Bld)2.1 %Normal0.0-8.0Mercy HospitalComment on above:Performed By: #### [id number] #### [facility] [address], [place] [address]Cpodaxfdlyy distribution width (RBC) [Ratio]13.9 %Normal 10.9-14.2FPremier HealthComment on above:Performed By: #### [id number] #### [facility] [address], [place] [address]Hdupkhsxzk (Bld) [Volume fraction]34.0 %Fcpscy35.0-46.0Mercy HospitalComment on above:Performed By: #### [id number] #### [facility] [address] [place] [address]Pqefkzslkn (Bld) [Mass/Vol]11.5 g/dLLow12.0-16.0Mer[facility] HospitalComment on above:Performed By: #### [id number] #### [facility] [address] [place] [address]Pushk Absolute1.6 E9/LNormal1.0-4.0[facility] Comment on above:Performed By: #### [id number] #### [facility] [address] [place] [address]Pjerowjddqx/100 WBC (Bld)33.9 %Jxympg71.0-50.0Mer[facility] HospitalComment on above:Performed By: #### [id number] #### [facility] [address] [place] [address] 14506HFU (RBC) [Entitic mass]30.4 syNsiirq94.0-34.0Mer[facility] HospitalComment on above:Performed By: #### [id number] #### [facility] [address], [place] [address]TMCS (RBC) [Mass/Vol]33.9 g/yLGesohy33.4-36.0Mercy HospitalComment on above:Performed By: #### [id number] #### [facility] [address], [place] [address]SVD (RBC) [Entitic vol]89.7 qWQybueh50.0-100.0Mer[facility] HospitalComment on above:Performed By: #### [id number] #### [facility] [address] [place] [address]Zucx Absolute0.3 E9/LNormal0.2-1.0[facility] Comment on above:Performed By: #### [id number] #### [facility] [address] [place] [address] 288[address]Tbvjrrtoq/100 WBC (Bld)6.9 %Normal4.0-14.0Mercy HospitalComment on above:Performed By: #### [id number] #### [facility] [address], [place] [address]Ssjnnz Absolute2.7 E9/LNormal2.0-7.5FPremier Health Comment on above:Performed By: #### [id number] #### [facility] [address] [place] [address]Xfdbqt Auto56.2 %Ukhpmu67.0-75.0[facility] Comment on above:Performed By: #### [id number] #### [facility] [address] [place] [address]Krsjumqt444.0 E9/KXnuiku229.0-500.0[facility] Comment on above:Performed By: #### [id number] #### [facility] [address] [place] [address]Erunmorq mean volume (Bld) [Entitic vol]8.5 fLNormal6.4-10.8 [facility] HospitalComment on above:Performed By: #### [id number] #### [facility] [address] [place] [address] 278[address]TSO2.8 E12/LLow4.3-5.9Mercy HospitalComment on above:Performed By: #### [id number] #### [facility] [address] [place] [address]XZT1.8 E9/LNormal4.0-11.0Mer[facility] HospitalComment on above:Performed By: #### [id number] #### [facility] [address] [place] [address]VVGul 39-39-2105Najfcyc [Mass/Vol]4.1 g/dLNormal3.3-5.0Mer[facility] HospitalComment on above:Performed By: #### [id number] #### [facility] [address], [place] [address]Neukcus/Globulin [Mass ratio]1.2 {ratio}Normal1.1-2.2FPremier HealthComment on above:Performed By: #### [id number] #### [facility] [address], [place] [address]Nhk Lycj578 Int._Unit/TJcrs79-03LhvnavMercy Hospital Comment on above:Performed By: #### [id number] #### [facility] [address] [place] [address] 005[address]USA01 Int._Unit/LNormal6-46Mer[facility] HospitalComment on above:Performed By: #### [id number] #### [facility] [address], [place] [address]Jfwyn gap [Moles/Vol]10 mmol/LNormal6-16Mercy HospitalComment on above:Performed By: #### [id number] #### [facility] [address], [place] [address]DMH98 Int._Unit/LNormal5-43Mer[facility] HospitalComment on above:Performed By: #### [id number] #### [facility] [address], [place] [address]Uggr Total0.7 mg/dLNormal0.0-1.1FPremier Health Comment on above:Performed By: #### [id number] #### [facility] [address], [place] [address]UAY/Creat Ratio22 No TqbhgBjhb00-47ClcyjoMercy Hospital Comment on above:Performed By: #### [id number] #### [facility] [address], [place] [address]Jghrcgg [Mass/Vol]10.5 mg/dLNormal8.9-11.1FPremier HealthComment on above:Performed By: #### [id number] #### [facility] [address], [place] [address]Hrevusct [Moles/Vol]105 mmol/FUrezab252-453ObczhoMercy HospitalComment on above:Performed By: #### [id number] #### [facility] [address], [place] [address]IT6 [Moles/Vol]31 mmol/HFzbgtc60-38YixbsmMercy Hospital Comment on above:Performed By: #### [id number] #### [facility] [address], [place] [address]Ujfsmaycoj [Mass/Vol]1.3 mg/dLNormal0.5-1.3FPremier HealthComment on above:Performed By: #### [id number] #### [facility] [address], [place] [address]Eeqgyfqr (S) [Mass/Vol]3.4 g/dLNormal1.4-4.0Mercy HospitalComment on above:Performed By: #### [id number] #### [facility] [address], [place] [address]Oflmcfj [Mass/Vol]78 mg/hWNknrmq07-445UufijhMercy HospitalComment on above:Performed By: #### [id number] #### [facility] [address], [place] [address]Dxslpbzbu [Moles/Vol]4.4 mmol/LNormal3.5-5.3FPremier HealthComment on above:Performed By: #### [id number] #### [facility] [address], [place] [address]Uxochde [Mass/Vol]7.5 g/dLNormal6.0-7.8Mercy HospitalComment on above:Performed By: #### [id number] #### [facility] [address], [place] [address]Ddirls [Moles/Vol]142 mmol/ETmfovh023-351HsdrfaMercy HospitalComment on above:Performed By: #### [id number] #### [facility] [address], [place] [address]Zqsh nitrogen [Mass/Vol]29 mg/dLHigh5-21Mercy HospitalComment on above:Performed By: #### [id number] #### [facility] [address], [place] [address] Office/Clinic Noteon 50-77-9329Lgvzld Medicine Office/Clinic NoteCl[facility]Clinic Note HPI Staff Pt is here for different things going on ??? ( would not clarify while making appt) is wondering if we can draw her CBC and TSH due to being lethargic Has sleep apnea and wears a CPAP, claims that it is leaking from the mask She has no color to her pretty much all day She is sleeping harder than usual, has to shake her to wake her up 2 night s ago she was having heart palpitations said she jumps a lot when she is sleeping History of Present Illness pt presents today for worsening fatigue, says she is pale and she just isn't herself Review of Systems PHQ Score Initial Depression Screen Score: 0 SCORE Physical Exam Vitals & Measurements T: 36.3 ???C(Temporal Artery) HR: 56(Peripheral) RR: 18 BP: 122/84 SpO2: 97% HT: 60 in HT: 152.0 cm WT: 79.9 kg WT: 176.149 lb BMI: 34.58 General: alert, no acute distress ENMT: oral mucosa moist, no pharyngeal erythema or exudate Cardiovascular: regular rate and rhythm, normal peripheral perfusion Respiratory: Lungs CTA, respirations non labored Extremities: no deformity, no trauma Neurological: oriented x 4, LOC appropriate for age, CN II-XII intact, motor strength equal & normal bilaterally, speech normal Assessment/Plan 1. Right otitis media (H66.91: Otitis media, unspecified, right ear) right OM noted on exam. will treat with z mohsen and medrol dose pack Ordered: azithromycin, = 1 packet(s), Oral, As Directed, as directed on package labeling, X 5 day(s), # 6 tab(s), Refills(s) 0, [id number], cm, 02/23/25 8:48:00 EDT, Height/Length Dosing, 79.9, kg, 02/23/25 8:48:00 EDT, Weight Dosing methylPREDNISolone, = 1 packet(s), Oral, As Directed, as directed on package labeling, X 6 day(s), # 21 tab(s), Refills(s) 0, [id number], 152, cm, 02/23/25 8:48:00 EDT, Height/Length Dosing, 79.9, kg, 02/23/25 8:48:00 EDT, Weight Dosing 2. Chronic kidney disease, stage 3b (N18.32: Chronic kidney disease, stage 3b) cmp checked today Ordered: azithromycin, = 1 packet(s), Oral, As Directed, as directed on package labeling, X 5 day(s), # 6 tab(s), Refills(s) 0, [id number], 152, cm, 02/23/25 8:48:00 EDT, Height/Length Dosing, 79.9, kg, 02/23/25 8:48:00 EDT, Weight Dosing methylPREDNISolone, = 1 packet(s), Oral, As Directed, as directed on package labeling, X 6 day(s), # 21 tab(s), Refills(s) 0, [id number], 152, cm, 02/23/25 8:48:00 EDT, Height/Length Dosing, 79.9, kg, 02/23/25 8:48:00 EDT, Weight Dosing B-Type Natriuretic Peptide CBC w/ Auto Diff Comprehensive Metabolic Panel Ferritin Free T4 Iron Level T3 Free Thyroid Stimulating Hormone TIBC Calculated Vitamin D 25 Hydroxy 3. Paroxysmal atrial fibrillation (I48.0: Paroxysmal atrial fibrillation) sinus rhythm in office today Ordered: azithromycin, = 1 packet(s), Oral, As Directed, as directed on package labeling, X 5 day(s), # 6 tab(s), Refills(s) 0, [id number], 152, cm, 02/23/25 8:48:00 EDT, Height/Length Dosing, 79.9, kg, 02/23/25 8:48:00 EDT, Weight Dosing methylPREDNISolone, = 1 packet(s), Oral, As Directed, as directed on package labeling, X 6 day(s), # 21 tab(s), Refills(s) 0, Pharmacy: [facility]/pharmacy #[id number], 152, cm, 02/23/25 8:48:00 EDT, Height/Length Dosing, 79.9, kg, 02/23/25 8:48:00 EDT, Weight Dosing B-Type Natriuretic Peptide CBC w/ Auto Diff Comprehensive Metabolic Panel Ferritin Free T4 Iron Level T3 Free Thyroid Stimulating Hormone TIBC Calculated Vitamin D 25 Hydroxy 4. Pale (R23.1: Pallor) Ordered: azithromycin, = 1 packet(s), Oral, As Directed, as directed on package labeling, X 5 day(s), # 6 tab(s), Refills(s) 0, Pharmacy: [facility]/pharmacy #[id number], 152, cm, 02/23/25 8:48:00 EDT, Height/Length Dosing, 79.9, kg, 02/23/25 8:48:00 EDT, Weight Dosing methylPREDNISolone, = 1 packet(s), Oral, As Directed, as directed on package labeling, X 6 day(s), # 21 tab(s), Refills(s) 0, Pharmacy: [facility]/pharmacy #[id number], 152, cm, 02/23/25 8:48:00 EDT, Height/Length Dosing, 79.9, kg, 02/23/25 8:48:00 EDT, Weight Dosing B-Type Natriuretic Peptide CBC w/ Auto Diff Comprehensive Metabolic Panel Ferritin Free T4 Iron Level T3 Free Thyroid Stimulating Hormone TIBC Calculated Vitamin D 25 Hydroxy 5. Fatigue (R53.83: Other fatigue) pt and state she is very fatigued and sleeps a lot. when she does sleep she twitches a lot.will check labs today. she is to follow up with oncology in May. If labs are all normal, I feel the fatigue may be from the Femara she is taking. Ordered: azithromycin, = 1 packet(s), Oral, As Directed, as directed on package labeling, X 5 day(s), # 6 tab(s), Refills(s) 0, Pharmacy: [facility]/pharmacy #[id number], 152, cm, 02/23/25 8:48:00 EDT, Height/Length Dosing, 79.9, kg, 02/23/25 8:48:00 EDT, Weight Dosing methylPREDNISolone, = 1 packet(s), Oral, As Directed, as directed on package labeling, X 6 day(s), # 21 tab(s) (more content not included)...NormalMercy HospitalComment on above:Result Comment: Electronically Signed By: Keya Lucas\Date and Time Signed: 02/23/25 09:16 EDTFerritinon 06-70-0595Fqlkbpjf Kyf828 ng/iTOiwpzt74-071XfkjecMercy HospitalComment on above:Performed By: #### [id number] #### [facility] [address], [place] [address]Japh T4on 63-69-9071Ojba T4 [Mass/Vol]1.65 ng/dLHigh0.58-1.64 Mercy HospitalComment on above:Performed By: #### [id number] #### [facility] [address], [place] [address]Axoqaq 53-64-1534Rbrh97 microgram/xKDzaqiy03-334JnbxqwMercy HospitalComment on above:Performed By: #### [id number] #### [facility] [address], [place] [address]SJVE Calculatedon 81-09-1212YMBZ469 microgram/oVXwqx695-307 Mercy HospitalComment on above:Performed By: #### [id number] #### [facility] [address], [place] [address]Pikfhotdbim [Mass/Vol]293 mg/zJUwehaw429-726FfdcgxMercy HospitalComment on above:Performed By: #### [id number] #### [facility] [address], [place] [address]JPXwa 25-06-1351NDS Qn0.01 m[IU]/LLow0.34-5.60Mercy HospitalComment on above:Performed By: #### [id number] #### [facility] [address], [place] [address]Vkqqdew D 25 Hydroxyon 67-64-6151Dbugrzm D 25 Lnxjeop20.8 ng/mL Hrveuy61.0-100.0Mercy HospitalComment on above:Performed By: #### [id number] #### [facility] [address], [place] [address]wKBHia 26-64-7864sZPV32 mL/min/1.73 m2Low>=59Mercy HospitalComment on above:Performed By: #### [id number] #### [facility] [address], [place] [address]Yrgmyg Visiton 98-30-3368Cqtgww-up [id number] Marley Osborn 1955 F Date Provider Department Center 12/28/2024 [id number], [facility] Family History Problem Relation Age of Onset Heart attack Father Family Status - Relation Status Age at Mother Father Level of Service:61723 [place] OFFICE/OUTPATIENT ESTABLISHED MOD MDM 30 [facility] 54-36-0932FhvadmmsrDyovdyynx From: Keya Lucas To: [facility] - Clinical; Sent: 12/10/2024 08:11:36 EDT Show up: 12/10/2024 08:09:00 EDT Subject: Ambulatory Reminder Due Date/Time: 12/11/2024 08:08:00 EDT Her thyroid test is low. I see that Dr. Miguel increased her Synthroid to 100 in September. Is he managing her thyroid now? If so, he will need to be notified. If I am still managing it, I would like to decrease her dose. Just let me know how her wants to proceed. I can send lower dose into pharmacy. Results: Date Result Name Ind Value Ref Range 12/09/2024 8:58 Glucose Lvl 94 mg/dL (55 - 199) 12/09/2024 8:58 BUN (H) 25 mg/dL (5 - 21) 12/09/2024 8:58 Creatinine (H) 1.4 mg/dL (0.5 - 1.3) 12/09/2024 8:58 eGFR (L) 40 mL/min/1.73 m2 (>=59 - ) 12/09/2024 8:58 BUN/Creat Ratio 18 (10 - 20) 12/09/2024 8:58 Sodium Lvl 138 mmol/L (135 - 145) 12/09/2024 8:58 Potassium Lvl 3.9 mmol/L (3.5 - 5.3) 12/09/2024 8:58 Chloride 103 mmol/L (101 - 111) 12/09/2024 8:58 CO2 26 mmol/L (21 - 31) 12/09/2024 8:58 AGAP 13 mEq/L (6 - 16) 12/09/2024 8:58 Calcium Lvl 9.6 mg/dL (8.9 - 11.1) 12/09/2024 8:58 Alk Phos 94 Int._Unit/L (21 - 98) 12/09/2024 8:58 ALT 15 Int._Unit/L (6 - 46) 12/09/2024 8:58 AST 18 Int._Unit/L (5 - 43) 12/09/2024 8:58 Total Protein 7.3 gm/dL (6.0 - 7.8) 12/09/2024 8:58 Albumin Lvl 4.3 gm/dL (3.3 - 5.0) 12/09/2024 8:58 Globulin 3.0 gm/dL (1.4 - 4.0) 12/09/2024 8:58 A/G Ratio 1.4 (1.1 - 2.2) 12/09/2024 8:58 Bili Total 0.9 mg/dL (0.0 - 1.1) 12/09/2024 8:58 Chol (H) 212 mg/dL (120 - 200) 12/09/2024 8:58 Trig (H) 251 mg/dL ( - <=149) 12/09/2024 8:58 HDL 76 mg/dL 12/09/2024 8:58 LDL Direct 100 mg/dL ( - <=129) 12/09/2024 8:58 VLDL (H) 50 mg/dL (7 - 40) 12/09/2024 8:58 TSH (L) 0.01 mcIU/mL (0.34 - 5.60) Spoke with pt's . He states pt only saw Dr Miguel at [facility]. Advised pt you would senda new rx to pharmacy [facility]. please advise [phone] From: Mary Jo Walter LPN (B - Clinical) To: Keya Lucas; Sent: 12/10/2024 13:21:29 EDT Show up: 12/10/2024 13:21:00 EDT Subject: re- labsNormalMercy HospitalCMPon 01-79-8518Lgznuxr [Mass/Vol]4.3 g/dLNormal3.3-5.0Mercy HospitalComment on above: Performed By: #### [id number] #### [facility] [address], [place] [address]Nurcyyv/Globulin [Mass ratio]1.4 {ratio}Normal1.1-2.2FPremier HealthComment on above:Performed By: #### [id number] #### [facility] [address], [place] [address]Yft Phos94 Int._Unit/FYnspht93-63EwsyusMercy Hospital Comment on above:Performed By: #### [id number] #### [facility] [address], [place] [address]IDU08 Int._Unit/LNormal6-46Mercy HospitalComment on above:Performed By: #### [id number] #### [facility] [address], [place] [address]Dphzh gap [Moles/Vol]13 mmol/LNormal6-16Mercy HospitalComment on above:Performed By: #### [id number] #### [facility] [address], [place] [address]CHV68 Int._Unit/LNormal5-43Mercy HospitalComment on above:Performed By: #### [id number] #### [facility] [address], [place] [address]Xzql Total0.9 mg/dLNormal0.0-1.1FPremier Health Comment on above:Performed By: #### [id number] #### [facility] [address], [place] [address]NMO/Creat Ratio18 No HocvnOpqgec71-69FfmfkyMercy HospitalComment on above:Performed By: #### [id number] #### [facility] [address], [place] [address]Qlxxoyn [Mass/Vol]9.6 mg/dLNormal8.9-11.1FPremier HealthComment on above:Performed By: #### [id number] #### [facility] [address], [place] [address]Meugunuh [Moles/Vol]103 mmol/SKtdlaa482-657IwoagkMercy HospitalComment on above:Performed By: #### [id number] #### [facility] [address], [place] [address]GF2 [Moles/Vol]26 mmol/LAtzvau71-40HzrcgkMercy Hospital Comment on above:Performed By: #### [id number] #### [facility] [address], [place] [address]Zqskpeulyz [Mass/Vol]1.4 mg/dLHigh0.5-1.3FPremier HealthComment on above:Performed By: #### [id number] #### [facility] [address], [place] [address]Rtjmfjxo (S) [Mass/Vol]3.0 g/dLNormal1.4-4.0Mercy HospitalComment on above:Performed By: #### [id number] #### [facility] [address], [place] [address]Rpeosxj [Mass/Vol]94 mg/yBHnsrny34-887PiabquMercy HospitalComment on above:Performed By: #### [id number] #### [facility] [address], [place] [address]Detqsqwle [Moles/Vol]3.9 mmol/LNormal3.5-5.3FPremier HealthComment on above:Performed By: #### [id number] #### [facility] [address] [place] [address]Iiuhaml [Mass/Vol]7.3 g/dLNormal6.0-7.8Mercy HospitalComment on above:Performed By: #### [id number] #### [facility] [address] [place] [address]Drfpsd [Moles/Vol]138 mmol/YKdwwrw352-665RyuprkMercy HospitalComment on above:Performed By: #### [id number] #### [facility] [address] [place] [address]Sxkw nitrogen [Mass/Vol]25 mg/dLHigh5-21Mercy HospitalComment on above:Performed By: #### [id number] #### [facility] [address] [place] [address]Xhspb Panelon 55-97-2938Gjzvqtajqsa [Mass/Vol]212 mg/dLHigh 120-200Mercy HospitalComment on above:Performed By: #### [id number] #### [facility] [address] [place] [address]Ardgwxwtdtr in HDL [Mass/Vol]76 mg/dLInvalid Interpretation CodeMercy HospitalComment on above:Result Comment: '>= 60 LOW RISK' '<= 40 HIGH RISK'Performed By: #### [id number] #### [facility] [address] [place] [address]Pouwdolgwir in LDL [Mass/Vol]100 mg/dLNormal<=129Mercy HospitalComment on above:Performed By: #### [id number] #### [facility] [address], [place] [address]Jsqkwsalbuu in VLDL [Mass/Vol]50 mg/dLHigh7-40Mercy HospitalComment on above:Performed By: #### [id number] #### [facility] [address], [place] [address]Nzeswufsnstb [Mass/Vol]251 mg/dLHigh<=149Mercy HospitalComment on above:Performed By: #### [id number] #### [facility] [address], [place] [address]RWRgo 17-28-8508FZZ Qn0.01 m[IU]/LLow0.34-5.60Mercy HospitalComment on above:Performed By: #### [id number] #### [facility] [address] [place] [address]hKUYwj 51-75-3063bQCO90 mL/min/1.73 m2Low>=59Mercy HospitalComment on above:Performed By: #### [id number] #### [facility] [address] [place] [address]UI Mamm Diag w/CAD if perf and 3D RTon 73-50-6485WW Mamm Diag w/CAD if perf and 3D RTExam Date/Time: 11/29/2024 09:52 EDT Reason for Exam: Z85.3;Breast Cancer, personal history of Report IMPRESSION: BIRADS 2 BENIGN FINDINGS, NORMAL INTERVAL FOLLOW-UP Follow-up: 6 MONTH RECALL, AT THE TIME OF ANNUAL SCREENING FOR THE LEFT BREAST. Category B - There are scattered areas of fibroglandular density. Vascular calcifications: Absent. EXAM: MA Mamm Diag w/CAD if perf and 3D RT DATE: 11/29/2024 9:04 AM CLINICAL HISTORY: Breast Cancer, personal history of, Z85.3. COMPARISONS: Outside bilateral mammograms 04/13/2024 and left breast mammograms 09/20/2023. TECHNIQUE: Routine full-field, XCCL and ML digital mammograms and 3D breast tomosynthesis were obtained of the right breast. FINDINGS: Diminishing ill-defined density subjacent to the right lumpectomy scar. Stable biopsy marking clips. No other significant changes are identified from the prior studies, given differences in technique and positioning. Dense Breast: No. CAD analysis was performed and used in the interpretation. Board Certified Radiologists. Accredited by the ACR and FDA. MAMMOGRAPHY IS VERY IMPORTANT TO YOUR HEALTH. THE CURRENT [place] [employer] GUIDELINES RECOMMENDS ANNUAL MAMMOGRAPHY BEGINNING AT AGE 40. THIS FACILITY UTILIZES A REMINDER SYSTEM TO ENSURE ALL PATIENTS RECEIVE REMINDER NOTIFICATIONS AT THE APPROPRIATE TIME BASED ON THE RECOMMENDATIONS OF THIS EXAM. Report Ordering Provider: Deb Neumann FINAL REPORT Dictated: 11/29/2024 10:01 am Vikram Noe MD Signed (Electronic Signature): 11/29/2024 10:01 am Signed by: Vikram Noe MD Transcribed by: AMAIRANI Technologist: KAREN Assessment: BI-RADS Category 2-Benign finding Recommendation: Normal interval follow-upKindred Healthcare CHEMISTRYOrdered By: SYSTEM SYSTEM on 38-05-0970Nqujnzq [Mass/Vol]4.5 g/dLNormal 3.3 - 5.0 gm/dLRemisol ChemAlbumin/Globulin [Mass ratio]1.5 {ratio}Normal1.1 - 2.2Remisol ChemALP [Catalytic activity/Vol]118 [iU]/dHigh21 - 98 Int._Unit/L Remisol ChemALT No additional P-5'-P [Catalytic activity/Vol]16 [iU]/dNormal6 - 46 Int._Unit/LRemisol ChemAnion gap [Moles/Vol]12 mmol/LNormal6 - 16 mEq/L Remisol ChemAST [Catalytic activity/Vol]15 [iU]/dNormal5 - 43 Int._Unit/LRemisol ChemBilirubin [Mass/Vol]0.9 mg/dLNormal0.0 - 1.1 mg/dLRemisol ChemCalcium [Mass/Vol]10.2 mg/dLNormal8.9 - 11.1 mg/dLRemisol ChemChloride [Moles/Vol]103 mmol/HCjfykb861 - 111 mmol/LRemisol ChemCO2 [Moles/Vol]30 mmol/EGxdqsp49 - 31 mmol/LRemisol ChemCreatinine [Mass/Vol]1.2 mg/dLNormal0.5 - 1.3 mg/dLRemisol ChemGFR/1.73 sq M.predicted MDRD (S/P/Bld) [Vol rate/Area]49 mL/min/1.73 m2Low >=59mL/min/1.73 a6Uxstqea ChemGlobulin (S) [Mass/Vol]3.0 g/dLNormal1.4 - 4.0 gm/dLRemisol ChemGlucose [Mass/Vol]81 mg/zYYurhkh51 - 199 mg/dLRemisol Chem Potassium [Moles/Vol]4.9 mmol/LNormal3.5 - 5.3 mmol/LRemisol ChemProtein [Mass/Vol]7.5 g/dLNormal6.0 - 7.8 gm/dLRemisol ChemSodium [Moles/Vol]140 mmol/L Rgfvvp859 - 145 mmol/LRemisol ChemUrea nitrogen [Mass/Vol]25 mg/dLHigh5 - 21 mg/dLRemisol ChemUrea nitrogen/Creatinine [Mass ratio]21 mg/dgRapl34 - 20Remisol ChemCMPon 07-92-6992Odwndfl [Mass/Vol]4.5 g/dLNormal3.3-5.0Mercy HospitalComment on above:Performed By: #### [id number] #### [facility] [address], [place] [address]Luwxcme/Globulin [Mass ratio]1.5 {ratio}Normal1.1-2.2FPremier HealthComment on above:Performed By: #### [id number] #### [facility] [address], [place] [address]Czg Dtiy058 Int._Unit/PBndg98-74GtazcnMercy Hospital Comment on above:Performed By: #### [id number] #### [facility] [address], [place] [address]NWJ35 Int._Unit/LNormal6-46Mercy HospitalComment on above:Performed By: #### [id number] #### [facility] [address], [place] [address]Tkwko gap [Moles/Vol]12 mmol/LNormal6-16Mercy HospitalComment on above:Performed By: #### [id number] #### [facility] [address], [place] [address]NJV49 Int._Unit/LNormal5-43Mercy HospitalComment on above:Performed By: #### [id number] #### [facility] [address], [place] [address]Lqhb Total0.9 mg/dLNormal0.0-1.1FPremier Health Comment on above:Performed By: #### [id number] #### [facility] [address] [place] [address]FAF/Creat Ratio21 No MbthjUtlx72-17YnmvmoMercy Hospital Comment on above:Performed By: #### [id number] #### [facility] [address], [place] [address]Deeyakz [Mass/Vol]10.2 mg/dLNormal8.9-11.1FPremier HealthComment on above:Performed By: #### [id number] #### [facility] [address] [place] [address]Dtygckpu [Moles/Vol]103 mmol/MUvurci423-262BjqyrgMercy HospitalComment on above:Performed By: #### [id number] #### [facility] [address], [place] [address]ZO8 [Moles/Vol]30 mmol/UMvymit25-19SxtoemMercy Hospital Comment on above:Performed By: #### [id number] #### [facility] [address], [place] [address]Rzkzgdudlw [Mass/Vol]1.2 mg/dLNormal0.5-1.3FPremier HealthComment on above:Performed By: #### [id number] #### [facility] [address], [place] [address]Vhncmfmu (S) [Mass/Vol]3.0 g/dLNormal1.4-4.0Mercy HospitalComment on above:Performed By: #### [id number] #### [facility] [address], [place] [address]Dywyuis [Mass/Vol]81 mg/cCHjbzsn63-868QzshmcMercy HospitalComment on above:Performed By: #### [id number] #### [facility] [address], [place] [address]Hivrpdnqz [Moles/Vol]4.9 mmol/LNormal3.5-5.3FPremier HealthComment on above:Performed By: #### [id number] #### [facility] [address], [place] [address]Aanxgmr [Mass/Vol]7.5 g/dLNormal6.0-7.8Mercy HospitalComment on above:Performed By: #### [id number] #### [facility] [address] [place] [address]Lrpbnf [Moles/Vol]140 mmol/PDlxpkl017-490YpxxroMercy HospitalComment on above:Performed By: #### [id number] #### [facility] [address] [place] [address]Wvft nitrogen [Mass/Vol]25 mg/dLHigh5-21Mercy HospitalComment on above:Performed By: #### [id number] #### [facility] [address], [place] [address]nEBApp 83-12-8673cDLZ21 mL/min/1.73 m2Low>=59Mercy HospitalComment on above:Performed By: #### [id number] #### [facility] [address] [place] [address]R Urineon 07-57-4471Rdoaqpfd identified Cx Nom (U)Microbiology PROCEDURE: Urine Culture [R1] SOURCE: U Random BODY SITE: COLLECTED DATE/TIME: 09/15/2024 09:21 EDT RECEIVED DATE/TIME: 09/15/2024 18:10 EDT START DATE/TIME: 09/15/2024 18:10 EDT FREE TEXT SOURCE: Keya Lucas Jodi L FINAL REPORTS Final Report [] Verified Date/Time: 09/17/2024 10:23 EDT 3,000 cfu/ml Mixed skin contaminants Performing Locations R1: This test was performed at: [facility], [address] [place] [address], [address]- , , DzsqzbYzztpkKindred HealthcareComment on above:Performed By: #### [id number] #### [facility] [address] [place] [address]Eiclroqzgru 32-74-6854IntbioaxqKipgxyzpv From: Keya Lucas To: B - Clinical; Sent: 09/17/2024 11:27:04 EDT Show up: 09/17/2024 11:27:00 EDT Subject: Ambulatory Reminder Due Date/Time: 09/18/2024 11:26:00 EDT urine culture was negative Results: Date Result Type Ind Result Name 09/15/2024 9:21 EDT MBO NEG Urine Culture understandsKindred HealthcareRemindersReminders From: Keya Lucas To: [facility] - Clinical; Sent: 09/17/2024 11:27:04 EDT Show up: 09/17/2024 11:27:00 EDT Subject: Ambulatory Reminder Due Date/Time: 09/18/2024 11:26:00 EDT urine culture was negative Results: Date Result Type Ind Result Name 09/15/2024 9:21 EDT MBO NEG [facility]No[facility] Summaryon 17-29-4034Httyesptll Visit SummaryAmbulatory Visit Summary MARLEY OSBORN :1955 Visit Date:09/15/2024 Ambulatory Visit Instructions Your Diagnosis Confusion BMI 34.0-34.9,adult Obesity (BMI 30-39.9) Nonsmoker Your Care Team Attending Physician - Keya Lucas Primary Care Physician - Keya Lucas This Is Your Medications List Misc Prescription (Handicap Placard) Non-Formulary Medication (Misc Medication) acetaminophen alendronate (alendronate 70 mg Tab) apixaban (Eliquis 5 mg oral tablet) ergocalciferol (ergocalciferol 50,000 intl units Cap) haloperidol (haloperidol 5 mg Tab) letrozole (Femara 2.5 mg Tab) levothyroxine (levothyroxine 50 mcg (0.05 mg) Tab) quetiapine (quetiapine 25 mg Tab) Procedures Performed Lumpectomy of right breast (12/17/2023), Biopsy of breast (06/2023), Biopsy of breast (05/2023), Cataract (06/02/2019), Colonoscopy (01/2019), CEIOL - Cataract extraction and insertion of intraocularlens (04/28/2017), Biopsy of breast, Tonsillectomy and adenoidectomy. Discharge Vitals Temperature (Tympanic) 36.8 ???C Heart Rate (Peripheral) 66 Respiratory Rate 18 Blood Pressure 128/84 Height 152 cm Height 60 in Weight 78.8 kg Weight 173.724 lb BMI 34.11 What to do next Scheduled Follow-Up Appointments Friday 10:40 AM EDT With: Thien ROPER, Deb Lopez Where: [facility] 2024 11:00 AM EDT With: Where: [facility] [place] [id number] Medications What How Much When Why Instructions Unchanged acetaminophen 500 Milligram Every 6 hours as needed for as needed for pain Unchanged alendronate (alendronate 70 mg Tab) See instructions TAKE 1 TABLET BY MOUTH EVERY 7 DAYS Unchanged apixaban (Eliquis 5 mg oral tablet) 1 Tablets By Mouth 2 times a day Unchanged ergocalciferol (ergocalciferol 50,000 intl units Cap) See instructions TAKE 1 CAPSULE BY MOUTH EVERY WEEK Unchanged haloperidol (haloperidol 5 mg Tab) 1 Tablets By Mouth 2 times a day changed to BID 03/25 Unchanged letrozole (Femara 2.5 mg Tab) See instructions Invasive ductal carcinoma of right breast Osteopenia Start Femara after radiation is complete. Take 1 tab daily. Unchanged levothyroxine (levothyroxine 50 mcg (0.05 mg) Tab) See instructions TAKE 1 TABLET BY MOUTH EVERY DAY Unchanged Misc Prescription (Handicap Placard) See instructions Annual visit for general adult medical examination without abnormal findings Anxiety disorder Major depression with psychotic features Fall 5 years Unchanged Non-Formulary Medication (Misc Medication) calcium Unchanged quetiapine (quetiapine 25 mg Tab) See instructions TAKE 1 TABLET BY MOUTH EVERY DAY Allergies Keflex (rash) penicillins (rash) sulfamethoxazole (rash) Problems Ongoing - Any problem that you are currently receiving treatment for. 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 Depression Hypothyroidism IBS - Irritable bowel syndrome Paranoid schizophrenia Screening for hyperlipidemia Wellness examination Patient Survey You may receive a survey via text or e-mail asking about your office visit. Please share your experience with us by completing your survey. We appreciate your feedback and thank you for choosing us for your care. [facility] Medicine Office/Clinic Noteon [phone] Office[facility] NoteF[facility] Office/Clinic Note Chief Complaint Increased confusion HPI Staff Marley is a 68 year old female presenting for acute visit Dysuria: Onset: past week Symptoms: increased confusion, incontinence OTC used: NA Last UTI: last year Hx of kidney stones: no UA in office documented in chart Increased confusion the past 1wk. TSH: 1.15 mcIU/mL (06/15/24 15:03:00) History of Present Illness pt presents today with . he feels she has become more confused over the past week Review of Systems PHQ Score Initial Depression Screen Score: 0 SCORE Physical Exam Vitals & Measurements T: 36.8 ???C(Tympanic) HR: 66(Peripheral) RR: 18 BP: 128/84 SpO2: 99% HT: 152 cm HT: 60 in WT: 173.724 lb WT: 78.8 kg BMI: 34.11 General: alert, no acute distress ENMT: oral mucosa moist, no pharyngeal erythema or exudate Cardiovascular: regular rate and rhythm, normal peripheral perfusion Respiratory: Lungs CTA, respirations non labored Extremities: no deformity, no trauma Neurological: oriented x 4, LOC appropriate for age, CN II-XII intact, motor strength equal & normal bilaterally, speech normal Assessment/Plan 1. Confusion (R41.0: Disorientation, unspecified) gives a couple examples of how her confusion is worsening. he states there have been times that he will say the same thing to her 5 times and she just blanks out. I asked her about this and Iasked when this happens do you hear him? She responded yes I can hear him but it's just not computing in my brain. her states the last time this happened she had UTI. urine is negative in office today. will send for culture. pt is supposed to wear CPAP for apnea but she is not able to tolerate the masks. Will order MRI for further evaluation. pt is established with Dr. Gardner for LISA but has never seen anyone for her worsening cognition. Her mother had epilepsy. I wonder if these episodes are absence seizures. another differential diagnosis is possibly mets to her brain from the breast cancer. I will order MRI of brain without contrast. and will send referral to [facility] for further workup. Ordered: [facility] External Ambulatory Referral MRI Brain w/o Contrast Urine Culture Urnls Dip Stick Auto w/o Microscopy POC 04104 2. Impaired cognition (R41.89: Other symptoms and signs involving cognitive functions and awareness) see above. Ordered: [facility] External Ambulatory Referral MRI Brain w/o Contrast 3. BMI 34.0-34.9,adult (Z68.34: Body mass index [BMI] 34.0-34.9, adult) BMI education given Ordered: [facility] External Ambulatory Referral MRI Brain w/o Contrast 4. Obesity (BMI 30-39.9) (E66.9: Obesity, unspecified) see above Ordered: [facility] External Ambulatory Referral MRI Brain w/o Contrast 5. Nonsmoker (Z78.9: Other specified health status) continue not smoking Ordered: [facility] External Ambulatory Referral MRI Brain w/o Contrast Follow-up No qualifying data available Problem List/Past Medical History Ongoing Anxiety disorder BMI 33.0-33.9,adult BMI 34.0-34.9,adult Cervical cancer screening Confusion Fatigue History of recent fall History of uterine fibroid HTN (hypertension) Hyperlipidemia, unspecified Hypothyroid Impaired cognition Invasive ductal carcinoma of right breast Inversion of left nipple Loss of memory Major depression with psychotic features Nonsmoker Obesity Obesity (BMI 30-39.9) LISA (obstructive sleep apnea) Osteopenia Pelvic pain Right shoulder pain Schizophrenia Vitamin D deficiency Well woman exam Historical Depression Hypothyroidism IBS - Irritable bowel syndrome Paranoid schizophrenia Screening for hyperlipidemia Wellness examination Procedure/Surgical History Lumpectomy of right breast (12/17/2023), Biopsy of breast (06/2023), Biopsy of breast (05/2023), Cataract (06/02/2019), Colonoscopy (01/2019), CEIOL - Cataract extraction and insertion of intraocularlens (04/28/2017), Biopsy of breast, Tonsillectomy and adenoidectomy. Medications acetaminophen, 500 mg, q6hr, PRN alendronate 70 mg Tab, See Instructions Eliquis 5 mg oral tablet, 5 mg= 1 tab(s), Oral, BID ergocalciferol 50,000 intl units Cap, See Instructions Femara 2.5 mg Tab, See Instructions, 11 refills haloperidol 5 mg Tab, 5 mg= 1 tab(s), Oral, BID, 1 refills Handicap Placard, See Instructions levothyroxine 50 mcg (0.05 mg) Tab, See Instructions Misc Medication quetiapine 25 mg Tab, See Instructions Allergies Keflex (rash) penicillins (rash) sulfamethoxazole (rash) Social History Alcohol - Denies Alcohol Use, 02/21/2023 Current. Wine. 1-2 times per week., 06/15/2024 Substance Abuse - Denies Substance Abuse, 09/03/2023 Never., 06/15/2024 Tobacco - Denies Tobacco Use, 02/21/2023 Never (less than 100 in lifetime) Tobacco Use:. Never Smokeless Tobacco Use:. Household tobacco concerns: No. Yes, 09/15/2024 Family History Dementia: Brother and Brother.Negative: Sister. Omayra (more content not included)...NormalMercy HospitalComment on above:Result Comment: Electronically Signed By: Keya Lucas\Date and Time Signed: 09/15/24 11:18 EDTCMPon 39-90-0100Vhytjkl [Mass/Vol]4.4 g/dLNormal 3.3-5.0Mercy HospitalComment on above:Performed By: #### [id number] #### [facility] [address], [place] [address]Dudduyq/Globulin (S) [Mass conc ratio]1.4Bcvxvn8.1-2.2FPremier HealthComment on above:Performed By: #### [id number] #### [facility] [address], [place] [address]VWG [Catalytic activity/Vol]86 Int._Unit/EQkyiuc57-42NqroitMercy HospitalComment on above:Performed By: #### [id number] #### [facility] [address], [place] [address]OMU No additional P-5'-P [Catalytic activity/Vol]14 Int._Unit/L Normal6-46Mercy HospitalComment on above:Performed By: #### [id number] #### [facility] [address], [place] [address]Pbxjz gap [Moles/Vol]12 mmol/LNormal6-16Mercy HospitalComment on above:Performed By: #### [id number] #### [facility] [address], [place] [address]ZPI [Catalytic activity/Vol]15 Int._Unit/LNormal5-43Mercy HospitalComment on above:Performed By: #### [id number] #### [facility] [address], [place] [address]Ikbfybyoa [Mass/Vol]0.6 mg/dLNormal0.0-1.1FPremier HealthComment on above:Performed By: #### [id number] #### [facility] [address], [place] [address]Hqunool [Mass/Vol]9.8 mg/dLNormal8.9-11.1FPremier HealthComment on above:Performed By: #### [id number] #### [facility] [address], [place] [address]Jdyarsoi [Moles/Vol]106 mmol/AGwfooy689-608IlfcrmMercy HospitalComment on above:Performed By: #### [id number] #### [facility] [address], [place] [address]WA5 [Moles/Vol]28 mmol/ZJmglth08-54FqdeapMercy Hospital Comment on above:Performed By: #### [id number] #### [facility] [address], [place] [address]Lxgqhwkhda [Mass/Vol]1.2 mg/dLNormal0.5-1.3FPremier HealthComment on above:Performed By: #### [id number] #### [facility] [address], [place] [address]Tavraedc (S) [Mass/Vol]2.6 g/dLNormal1.4-4.0Mercy HospitalComment on above:Performed By: #### [id number] #### [facility] [address], [place] [address]Uhu[place]yl [Mass/Vol]76 mg/eKSrdvdb37-807DigudsMercy HospitalComment on above:Performed By: #### [id number] #### [facility] [address], [place] [address]Qbtdxkwkn [Moles/Vol]4.3 mmol/LNormal3.5-5.3FPremier HealthComment on above:Performed By: #### [id number] #### [facility] [address], [place] [address]Wvkqjgl [Mass/Vol]7.0 g/dLNormal6.0-7.8Mercy HospitalComment on above:Performed By: #### [id number] #### [facility] [address], [place] [address]Szafyc [Moles/Vol]142 mmol/NUucbun466-718RmwzadMercy HospitalComment on above:Performed By: #### [id number] #### [facility] [address], [place] [address]Qbne nitrogen [Mass/Vol]23 mg/dLHigh5-21Mercy HospitalComment on above:Performed By: #### [id number] #### [facility] [address], [place] [address]Gwqd nitrogen/Creatinine [Mass ratio]19 No DfibxSxieet72-45 [facility] HospitalComment on above:Performed By: #### [id number] #### [facility] [address], [place] [address]Rjxax Panelon 96-42-6424Dnoykdxulim [Mass/Vol]200 mg/dLNormal 120-200Mercy HospitalComment on above:Performed By: #### [id number] #### [facility] [address], [place] [address]Zbvnlpwcmjo in HDL [Mass/Vol]87 mg/dLInvalid Interpretation CodeMercy HospitalComment on above:Result Comment: '>= 60 LOW RISK' '<= 40 HIGH RISK'Performed By: #### [id number] #### [facility] [address], [place] [address]Xpepxltgckh in LDL [Mass/Vol]80 mg/dLNormal<=129Mercy HospitalComment on above:Performed By: #### [id number] #### [facility] [address], [place] [address]Gwsmpqucogm in VLDL [Mass/Vol]45 mg/dLHigh7-40Mercy HospitalComment on above:Performed By: #### [id number] #### [facility] [address], [place] [address]Nxvfcrlblgvz [Mass/Vol]225 mg/dLHigh<=149Mercy HospitalComment on above:Performed By: #### [id number] #### [facility] [address], [place] [address]ATYda 27-12-0232XDG Qn1.15 m[IU]/LNormal0.34-5.60Mercy HospitalComment on above:Performed By: #### [id number] #### [facility] [address], [place] [address]bJUQjq 70-86-3608pWQX79 mL/min/1.73 m2Low>=59Mercy HospitalComment on above:Performed By: #### [id number] #### [facility] [address], [place] [address]Qytyhvciav Visit Summaryon 72-87-3939Cgovislrvm Visit Summary Ambulatory Visit Summary MARLEY OSBORN :1955 Visit Date:06/15/2024 Ambulatory Visit Instructions Your Diagnosis Hyperlipidemia, unspecified Hypothyroid HTN (hypertension) Pelvic pain History of uterine fibroid Confusion Your Care Team Attending Physician - Keya Lucas Primary Care Physician - Keya Lucas This Is Your Medications List Misc Prescription (Handicap Placard) Non-Formulary Medication (Misc Medication) acetaminophen alendronate (alendronate 70 mg Tab) apixaban (Eliquis 5 mg oral tablet) ergocalciferol (ergocalciferol 50,000 intl units Cap) haloperidol (haloperidol 5 mg Tab) letrozole (Femara 2.5 mg Tab) levothyroxine (levothyroxine 50 mcg (0.05 mg) Tab) quetiapine (quetiapine 25 mg Tab) Procedures Performed Lumpectomy of right breast (12/17/2023), Biopsy of breast (06/2023), Biopsy of breast (05/2023), Cataract (06/02/2019), Colonoscopy (01/2019), CEIOL - Cataract extraction and insertion of intraocularlens (04/28/2017), Biopsy of breast, Tonsillectomy and adenoidectomy. Discharge Vitals Temperature (Oral) 6.3 ???C Heart Rate (Peripheral) 78 Respiratory Rate 18 Blood Pressure 116/82 Height 152.0 cm Height 60 in Weight 77.80 kg Weight 171.519 lb BMI 33.67 What to do next Scheduled Follow-Up Appointments Friday 10:40 AM EDT With: Thien ROPER, Deb Lopez Where: [facility] 2024 11:00 AM EDT With: Where: [place] [id number]- Medications What How Much When Why Instructions Unchanged acetaminophen 500 Milligram Every 6 hours as needed for as needed for pain Unchanged alendronate (alendronate 70 mg Tab) See instructions TAKE 1 TABLET BY MOUTH EVERY 7 DAYS Unchanged apixaban (Eliquis 5 mg oral tablet) 1 Tablets By Mouth 2 times a day Unchanged ergocalciferol (ergocalciferol 50,000 intl units Cap) See instructions TAKE 1 CAPSULE BY MOUTH EVERY WEEK Unchanged haloperidol (haloperidol 5 mg Tab) 1 Tablets By Mouth 2 times a day changed to BID 03/25 Unchanged letrozole (Femara 2.5 mg Tab) See instructions Invasive ductal carcinoma of right breast Osteopenia Start Femara after radiation is complete. Take 1 tab daily. Unchanged levothyroxine (levothyroxine 50 mcg (0.05 mg) Tab) See instructions TAKE 1 TABLET BY MOUTH EVERY DAY Unchanged Misc Prescription (Handicap Placard) See instructions Annual visit for general adult medical examination without abnormal findings Anxiety disorder Major depression with psychotic features Fall 5 years Unchanged Non-Formulary Medication (Misc Medication) calcium Unchanged quetiapine (quetiapine 25 mg Tab) See instructions TAKE 1 TABLET BY MOUTH EVERY DAY Allergies Keflex (rash) penicillins (rash) sulfamethoxazole (rash) Problems Ongoing - Any problem that you are currently receiving treatment for. Anxiety disorder BMI 33.0-33.9,adult Cervical cancer screening Confusion Fatigue History of recent fall History of uterine fibroid HTN (hypertension) Hyperlipidemia, unspecified Hypothyroid Invasive ductal carcinoma of right breast Inversion of left nipple Loss of memory Major depression with psychotic features Obesity LISA (obstructive sleep apnea) Osteopenia Pelvic pain Right shoulder pain Schizophrenia Vitamin D deficiency Well woman exam Historical - Any problem that you are no longer receiving treatment for. Depression Hypothyroidism IBS - Irritable bowel syndrome Paranoid schizophrenia Screening for hyperlipidemia Wellness examination Patient Survey You may receive a survey via text or e-mail asking about your office visit. Please share your experience with us by completing your survey. We appreciate your feedback and thank you for choosing us for your care. [facility] Medicine Office/Clinic Noteon [phone] Medicine Office[facility]Cl[facility] Office/Clinic Note [facility] Staff Marley is a 68 year old female presenting for wellness visit Woman check up: Last pap: last June Results of lap pap: normal Where was it done hx: # of pregnancies... 0 abortions... 0 live births.. 0. living children...0 menstrual cycle (normal,heavy,ect): not in 10 years History of STD: no Do you want tested for STD today: no Vaginal discharge, odor, itching: no Self breast exam at home? no Hx of breast, cervical or uterine cancer in the family: grandmother- uterine cancer.... mother breast cancer.... patient has breast cancer history of hysterectomy? no Mammogram... every April History of Present Illness pt presents today for annual wellness visit Review of Systems PHQ Score Initial Depression Screen Score: 0 SCORE Physical Exam Vitals & Measurements T: 6.3 ???C(Oral) HR: 78(Peripheral) RR: 18 BP: 116/82 SpO2: 99% HT: 60 in HT: 152.0 cm WT: 77.80 kg WT: 171.519 lb BMI: 33.67 General: alert, no acute distress ENMT: oral mucosa moist, no pharyngeal erythema or exudate Cardiovascular: regular rate and rhythm, normal peripheral perfusion Respiratory: Lungs CTA, respirations non labored Extremities: no deformity, no trauma Neurological: oriented x 4, LOC appropriate for age, CN II-XII intact, motor strength equal & normal bilaterally, speech normal Assessment/Plan 1. Hyperlipidemia, unspecified (E78.5: Hyperlipidemia, unspecified) pt presents for wellness visit. is currently being treated for breast cancer. otherwise is feeling decent. lipid panel drawn Ordered: Comprehensive Metabolic Panel Comprehensive Metabolic Panel Lipid Panel Lipid Panel Thyroid Stimulating Hormone Thyroid Stimulating Hormone 2. Hypothyroid (E03.9: Hypothyroidism, unspecified) TSH drawn in office today Ordered: Comprehensive Metabolic Panel Comprehensive Metabolic Panel Lipid Panel Lipid Panel Thyroid Stimulating Hormone Thyroid Stimulating Hormone 3. HTN (hypertension) (I10: Essential (primary) hypertension) BP at goal today Ordered: Comprehensive Metabolic Panel Comprehensive Metabolic Panel Lipid Panel Lipid Panel Thyroid Stimulating Hormone Thyroid Stimulating Hormone 4. Pelvic pain (R10.2: Pelvic and perineal pain) pelvic u/s ordered 5. History of uterine fibroid (Z86.018: Personal history of other benign neoplasm) see above 6. Confusion (R41.0: Disorientation, unspecified) says she seems to be more confused and when she gets that way she usually has a UTI. will do u/s in office today. she is prone to UTI's. pt accidentally put TP in urine so they will bring urine back to be tested Follow-up No qualifying data available Problem List/Past Medical History Ongoing Anxiety disorder BMI 33.0-33.9,adult Cervical cancer screening Confusion Fatigue History of recent fall History of uterine fibroid HTN (hypertension) Hyperlipidemia, unspecified Hypothyroid Invasive ductal carcinoma of right breast Inversion of left nipple Loss of memory Major depression with psychotic features Obesity LISA (obstructive sleep apnea) Osteopenia Pelvic pain Right shoulder pain Schizophrenia Vitamin D deficiency Well woman exam Historical Depression Hypothyroidism IBS - Irritable bowel syndrome Paranoid schizophrenia Screening for hyperlipidemia Wellness examination Procedure/Surgical History Lumpectomy of right breast (12/17/2023), Biopsy of breast (06/2023), Biopsy of breast (05/2023), Cataract (06/02/2019), Colonoscopy (01/2019), CEIOL - Cataract extraction and insertion of intraocularlens (04/28/2017), Biopsy of breast, Tonsillectomy and adenoidectomy. Medications acetaminophen, 500 mg, q6hr, PRN alendronate 70 mg Tab, See Instructions Eliquis 5 mg oral tablet, 5 mg= 1 tab(s), Oral, BID ergocalciferol 50,000 intl units Cap, See Instructions Femara 2.5 mg Tab, See Instructions, 11 refills haloperidol 5 mg Tab, 5 mg= 1 tab(s), Oral, BID, 1 refills Handicap Placard, See Instructions levothyroxine 50 mcg (0.05 mg) Tab, See Instructions Misc Medication quetiapine 25 mg Tab, See Instructions Allergies Keflex (rash) penicillins (rash) sulfamethoxazole (rash) Social History Alcohol - Denies Alcohol Use, 02/21/2023 Current. Wine. 1-2 times per week., 06/15/2024 Substance Abuse - Denies Substance Abuse, 09/03/2023 Never., 06/15/2024 Tobacco - Denies Tobacco Use, 02/21/2023 Never (less than 100 in lifetime) Tobacco Use:., 06/15/2024 Family History Dementia: Brother and Brother.Negative: Sister. Omayra Gehrig's disease: Sister. Immunizations Vaccine Date Status Comments influenza virus vaccine, inactivated 03/20/2024 Recorded influenza virus vaccine, inactivated 02/24/2024 Given influenza virus vaccine, inactivated 03/05/2023 Recorded SARS-CoV-2 (COVID-19) [id number] 03/09/2022 Recorded 2022-08-09: [id number] influenza virus vaccine, (more content not included)...Kindred HealthcareComment on above:Result Comment: Electronically Signed By: Keya Lucas\.br\Date and Time Signed: 06/15/24 15:14 ESTOffice Visiton [id number]-up [id number] Marley Osborn 1955 F Date Provider Department Center 04/28/2024 [facility] Family History Problem Relation Age of Onset Heart attack Father Family Status - Relation Status Age at Father Level of Service:[address] [place] OFFICE/OUTPATIENT ESTABLISHED LOW MDM 20 MIN Reason for Visit and Comments: Atrial Fibrillation [80][facility] Urineon 30-09-9733Bmynudqa identified Cx Nom (U)Microbiology PROCEDURE: Urine Culture [R1] SOURCE: U CleanCatch BODY SITE: COLLECTED DATE/TIME: 03/15/2024 12:20 EDT RECEIVED DATE/TIME: 03/15/2024 14:49 EDT START DATE/TIME: 03/15/2024 14:49 EDT FREE TEXT SOURCE: Thien ROPER, Deb Neumann MD, Deb Lopez FINAL REPORTS Final Report [] Verified Date/Time: 03/17/2024 10:28 EDT 15,000 cfu/ml Streptococcus agalactiae (Group B) Presumptive isolated. Penicillin is the drug of choice for Beta Hemolytic Streptococci Isolates. Routine susceptibility testing on Beta Hemolytic Streptococcus isolates is no longer performed. Susceptibilities will continue to be performed on Isolates from sterile body fluids and serious wound infections. 2,000 cfu/ml Mixed skin contaminants Performing Locations R1: This test was performed at: [facility], [address] [place] [address], [address]- , , MswfqxLauddbTriHealth Bethesda North HospitalComment on above:Performed By: #### [id number] #### [facility] [address] [place] [address]Dwhjgdmhl 51-20-3326Wyshtbx (P) [Moles/Vol]32 zipzjGfihzd50-77 [facility] HospitalComment on above:Performed By: #### [id number] #### [facility] [address] [place] [address]HVD w/ Auto Diffon 22-27-0465Ttzvydgab/100 WBC (Bld)0.5 %Normal 0.0-2.0Mer[facility] HospitalComment on above:Performed By: #### [id number] #### [facility] [address] [place] [address]Bgsvgrbre/Leukocytes Auto (Bld) [Pure # fraction]0.0 E9/LNormal 0.0-0.2FPremier HealthComment on above:Performed By: #### [id number] #### [facility] [address] [place] [address]94[address]Rywhmmqiori (Bld) [#/Vol]0.1 E9/LNormal0.0-0.5FPremier HealthComment on above:Performed By: #### [id number] #### [facility] [address] [place] [address]79[address]Yfuvazrmuwd/100 WBC (Bld)2.0 %Normal0.0-8.0Mer[facility] HospitalComment on above:Performed By: #### [id number] #### [facility] [address], [place] [address]Ivvlftsircp distribution width (RBC) [Ratio]12.7 %Normal 10.9-14.2FPremier HealthComment on above:Performed By: #### [id number] #### [facility] [address] [place] [address]Ucdbmelump (Bld) [Volume fraction]38.0 %Thzemi90.0-46.0Mer[facility] HospitalComment on above:Performed By: #### [id number] #### [facility] [address] [place] [address]Kogjrponyb (Bld) [Mass/Vol]13.1 g/tWUiqnoo18.0-16.0Mer[facility] HospitalComment on above:Performed By: #### [id number] #### [facility] [address] [place] [address]Myjqaocxcmv (Bld) [#/Vol]1.7 E9/LNormal1.0-4.0Mer[facility] HospitalComment on above:Performed By: #### [id number] #### [facility] [address] [place] [address]Fhtikwlvpae/100 WBC (Bld)28.0 %Fkklzy16.0-50.0Mer[facility] HospitalComment on above:Performed By: #### [id number] #### [facility] [address] [place] [address] 05014WOC (RBC) [Entitic mass]31.3 knTwvznw69.0-34.0Mer[facility] HospitalComment on above:Performed By: #### [id number] #### [facility] [address] [place] [address]67[address]MKGN (RBC) [Mass/Vol]34.4 g/eGFrrqmw45.4-36.0Mer[facility] HospitalComment on above:Performed By: #### [id number] #### [facility] [address] [place] [address] 973[address]NTE (RBC) [Entitic vol]90.8 wBXucygr72.0-100.0Mercy HospitalComment on above:Performed By: #### [id number] #### [facility] [address] [place] [address]Ufshkzgbj (Bld) [#/Vol]0.4 E9/LNormal0.2-1.0Mer[facility] HospitalComment on above:Performed By: #### [id number] #### [facility] [address] [place] [address]Qgcxexnaalk (Bld) [#/Vol]3.9 E9/LNormal2.0-7.5FPremier HealthComment on above:Performed By: #### [id number] #### [facility] [address] [place] [address]Khjiuwtwahb/100 WBC (Bld)63.0 %Yrcdpj98.0-75.0Mercy HospitalComment on above:Performed By: #### [id number] #### [facility] [address] [place] [address]Rhcywcek796.0 E9/GCemwkb698.0-500.0[facility] Comment on above:Performed By: #### [id number] #### [facility] [address] [place] [address]Tltmldbt mean volume (Bld) [Entitic vol]7.5 fLNormal6.4-10.8 [facility] HospitalComment on above:Performed By: #### [id number] #### [facility] [address] [place] [address]GRR (Bld) [#/Vol]4.2 E12/LLow4.3-5.9[facility] Comment on above:Performed By: #### [id number] #### [facility] [address] 15[address]OSB corrected for nucl RBC Auto (Bld) [#/Vol]6.2 E9/LNormal 4.0-11.0Mercy HospitalComment on above:Performed By: #### [id number] #### [place] [facility] [address], [place] [address]LJJEZJADWAvmxzde By: SYSTEM SYSTEM on 06-29-1056Iolledm [Mass/Vol]4.5 g/dLNormal3.3 - 5.0 gm/dLRemisol ChemAlbumin/Globulin [Mass ratio] 1.6 {ratio}Normal1.1 - 2.2Remisol ChemALP [Catalytic activity/Vol]87 [iU]/d Rhezsw20 - 98 Int._Unit/LRemisol ChemALT No additional P-5'-P [Catalytic activity/Vol]17 [iU]/dNormal6 - 46 Int._Unit/LRemisol ChemAmmonia (P) [Moles/Vol]32 myeiBdczyb97 - 35 mcmolRemisol ChemAnion gap [Moles/Vol]12 mmol/L Normal6 - 16 mEq/LRemisol ChemAST [Catalytic activity/Vol]16 [iU]/dNormal5 - 43 Int._Unit/LRemisol ChemBilirubin [Mass/Vol]0.6 mg/dLNormal0.0 - 1.1 mg/dLRemisol ChemCalcium [Mass/Vol]10.2 mg/dLNormal8.9 - 11.1 mg/dLRemisol ChemChloride [Moles/Vol]104 mmol/BAzzwzc663 - 111 mmol/LRemisol ChemCO2 [Moles/Vol]27 mmol/L Sccayu22 - 31 mmol/LRemisol ChemCreatinine [Mass/Vol]1.2 mg/dLNormal0.5 - 1.3 mg/dLRemisol YhuvbBZY91 mL/min/1.73 m2Low>=59mL/min/1.73 d9Xhhsbfh ChemGlobulin (S) [Mass/Vol]2.8 g/dLNormal1.4 - 4.0 gm/dLRemisol ChemGlucose [Mass/Vol]94 mg/eEOejzji25 - 199 mg/dLRemisol ChemPotassium [Moles/Vol]4.3 mmol/LNormal3.5 - 5.3 mmol/LRemisol ChemProtein [Mass/Vol]7.3 g/dLNormal6.0 - 7.8 gm/dLRemisol ChemSodium [Moles/Vol]139 mmol/NUnzjwd267 - 145 mmol/LRemisol ChemTSH Qn1.56 m[IU]/LNormal0.34 - 5.60 mcIU/mLRemisol ChemUrea nitrogen [Mass/Vol]25 mg/dLHigh 5 - 21 mg/dLRemisol ChemUrea nitrogen/Creatinine [Mass ratio]21 mg/smKuwr51 - 20 Remisol ChemCMPon 15-22-2735Dzzuyah [Mass/Vol]4.5 g/dLNormal3.3-5.0Mercy HospitalComment on above:Performed By: #### [id number] #### [facility] [address] [place] [address]Zhygpdf/Globulin (S) [Mass conc ratio]1.2Pjpcff3.1-2.2FPremier HealthComment on above:Performed By: #### [id number] #### [facility] [address] [place] [address]40ECE [Catalytic activity/Vol]87 Int._Unit/UPkytwe94-47JjzwwdMercy HospitalComment on above:Performed By: #### [id number] #### [facility] [address], [place] [address]AKX No additional P-5'-P [Catalytic activity/Vol]17 Int._Unit/L Normal6-46Mercy HospitalComment on above:Performed By: #### [id number] #### [facility] [address], [place] [address]Vzqgg gap [Moles/Vol]12 mmol/LNormal6-16Mercy HospitalComment on above:Performed By: #### [id number] #### [facility] [address], [place] [address]UCW [Catalytic activity/Vol]16 Int._Unit/LNormal5-43Mercy HospitalComment on above:Performed By: #### [id number] #### [facility] [address], [place] [address]Oyittxhas [Mass/Vol]0.6 mg/dLNormal0.0-1.1FPremier HealthComment on above:Performed By: #### [id number] #### [facility] [address], [place] [address]Hyjuqjp [Mass/Vol]10.2 mg/dLNormal8.9-11.1FPremier HealthComment on above:Performed By: #### [id number] #### [facility] [address] [place] [address]Dpjbliso [Moles/Vol]104 mmol/EAycmfq730-069ViswieMercy HospitalComment on above:Performed By: #### [id number] #### [facility] [address], [place] [address]AD2 [Moles/Vol]27 mmol/HIbaeab98-56EqqxagMercy Hospital Comment on above:Performed By: #### [id number] #### [facility] [address], [place] [address]Hufgjeaujy [Mass/Vol]1.2 mg/dLNormal0.5-1.3FPremier HealthComment on above:Performed By: #### [id number] #### [facility] [address], [place] [address]Qvhbrhqn (S) [Mass/Vol]2.8 g/dLNormal1.4-4.0Mercy HospitalComment on above:Performed By: #### [id number] #### [facility] [address], [place] [address]Wdqzmnv [Mass/Vol]94 mg/sEJwrsmr55-876RaupkvMercy HospitalComment on above:Performed By: #### [id number] #### [facility] [address], [place] [address]Cwbkawbbp [Moles/Vol]4.3 mmol/LNormal3.5-5.3FPremier HealthComment on above:Performed By: #### [id number] #### [facility] [address], [place] [address]Osavxjx [Mass/Vol]7.3 g/dLNormal6.0-7.8Mercy HospitalComment on above:Performed By: #### [id number] #### [facility] [address], [place] [address]Tmzjpq [Moles/Vol]139 mmol/XMlmezr042-593GgusqrMercy HospitalComment on above:Performed By: #### [id number] #### [facility] [address], [place] [address]Wvji nitrogen [Mass/Vol]25 mg/dLHigh5-21Mercy HospitalComment on above:Performed By: #### [id number] #### [facility] [address], [place] [address]Ugvq nitrogen/Creatinine [Mass ratio]21 No IgdqdVdvy87-53OguwayMercy HospitalComment on above:Performed By: #### [id number] #### [facility] [address], [place] [address]BKBDDZKVDUIfnjfrf By: SYSTEM SYSTEM on 08-02-2168Wvpkcdlsa/100 WBC (Bld)0.5 %Normal0.0 - 2.0 %Remisol HemeBasophils/Leukocytes Auto (Bld) [Pure # fraction]0.0 E9/LNormal0.0 - 0.2 E9/LRemisol HemeEosinophils (Bld) [#/Vol]0.1 E9/LNormal0.0 - 0.5 E9/LRemisol HemeEosinophils/100 WBC (Bld)2.0 %Normal0.0 - 8.0 %Remisol HemeErythrocyte distribution width (RBC) [Ratio]12.7 %Nfogut84.9 - 14.2 %Remisol HemeHematocrit (Bld) [Volume fraction]38.0 %Mjzbpe34.0 - 46.0 % Remisol HemeHemoglobin (Bld) [Mass/Vol]13.1 g/xPUtxvar57.0 - 16.0 gm/dLRemisol HemeLymphocytes (Bld) [#/Vol]1.7 E9/LNormal1.0 - 4.0 E9/LRemisol Heme Lymphocytes/100 WBC (Bld)28.0 %Jrdkcl95.0 - 50.0 %Remisol HemeMCH (RBC) [Entitic mass]31.3 eiXbfkpx80.0 - 34.0 pgRemisol HemeMCHC (RBC) [Mass/Vol]34.4 g/dL Forhrj24.4 - 36.0 gm/dLRemisol HemeMCV (RBC) [Entitic vol]90.8 eEGxblbj58.0 - 100.0 fLRemisol HemeMonocytes (Bld) [#/Vol]0.4 E9/LNormal0.2 - 1.0 E9/LRemisol HemeMonocytes/100 WBC (Bld)6.5 %Normal4.0 - 14.0 %Remisol HemeNeutrophils (Bld) [#/Vol]3.9 E9/LNormal2.0 - 7.5 E9/LRemisol HemeNeutrophils/100 WBC (Bld)63.0 % Yphhjv18.0 - 75.0 %Remisol DqpbUhxntgno063.0 E9/XLsojpl479.0 - 500.0 E9/LRemisol HemePlatelet mean volume (Bld) [Entitic vol]7.5 fLNormal6.4 - 10.8 fLRemisol HemeRBC (Bld) [#/Vol]4.2 E12/LLow4.3 - 5.9 E12/LRemisol HemeWBC corrected for nucl RBC Auto (Bld) [#/Vol]6.2 E9/LNormal4.0 - 11.0 E9/LRemisol HemeTSH With T4fr Reflexon 71-44-9815CXA Qn1.56 m[IU]/LNormal0.34-5.60Mercy HospitalComment on above:Performed By: #### [id number] #### [place] [facility] [address], [place] [address]XC with Cult Rflxon 87-46-4164Wpoxmqla Auto Ql (U)TraceNormal TraceMercy HospitalComment on above:Performed By: #### [id number] #### [facility] [address], [place] [address]Efmrjonxd Ql (U)NegativeNormalNegativeMercy HospitalComment on above:Performed By: #### [id number] #### [facility] [address], [place] [address]Gduuvwr (U)ClearNormalClearMercy HospitalComment on above:Performed By: #### [id number] #### [facility] [address], [place] [address]Zqncr (U)ColorlessAbnormalYellowMercy Hospital Comment on above:Result Comment: Microscopic readings are only performed on those samples that meet specific criteria set forth by [facility].Performed By: #### [id number] #### [facility] [address], [place] [address]Vlkloyhxfn cells.squamous Auto (Urine sed) [#/Area]0-2Invalid Interpretation CodeMercy HospitalComment on above:Performed By: #### [id number] #### [facility] [address], [place] [address]Zmzdtho Ql (U)NegativeNormalNegBarney Children's Medical Center Comment on above:Performed By: #### [id number] #### [facility] [address], [place] [address]Lmdjgtojtv Auto test strip (U) [Mass/Vol]NegativeNormalNegative Mercy HospitalComment on above:Performed By: #### [id number] #### [facility] [address], [place] [address]Dpuxebb Auto test strip Ql (U)NegativeNormalNegBarney Children's Medical CenterComment on above:Performed By: #### [id number] #### [facility] [address] [place] [address]Wroldxmgn esterase Auto test strip Ql (U)75 Jacoby/uLAbnormal NegativeMercy HospitalComment on above:Performed By: #### [id number] #### [facility] [address] [place] [address]Tckwr Auto Ql (U)NegativeNormalNegativeMercy HospitalComment on above:Performed By: #### [id number] #### [facility] [address] [place] [address]Ykxipxq Auto test strip Ql (U)NegativeNormalNegativeMercy HospitalComment on above:Performed By: #### [id number] #### [facility] [address] [place] [address]1999uB (U)5.5 [pH]Invalid Interpretation Code5.0-9.0Mercy HospitalComment on above:Performed By: #### [id number] #### [facility] [address] [place] [address]Jmmorac Ql (U)NegativeNormalNegBarney Children's [facility] Center Comment on above:Performed By: #### [id number] #### [facility] [address] [place] [address]IAX Ql (U)7-5Xjbfhx4-2Fhrvld [facility] Orthopaedic InstituteComment on above:Performed By: #### [id number] #### [facility] [address] [place] [address]Xgghfozj gravity (U) [Rel density]1.004Invalid Interpretation Code1.005-1.030Mercy HospitalComment on above:Performed By: #### [id number] #### [facility] [address] [place] [address]Kcpafkkgcwfw (U) [Mass/Vol]NegativeNormalNegativeMercy HospitalComment on above:Performed By: #### [id number] #### [facility] [address], [place] [address]DEV Auto (Urine sed) [#/Area]3-7Atlmfs5-3Ughuuv [facility] Orthopaedic InstituteComment on above:Performed By: #### [id number] #### [place] [facility] [address], [place] [address]Xqvu of Urine collection methodClean CatchNormalFisher [facility] Orthopaedic InstituteComment on above:Performed By: #### [id number] #### [facility] [address], [place] [address]ANZXRTJMOOVtmfvzl By: SYSTEM SYSTEM on 55-20-3963Sewtlwoa Auto Ql (U)Trace /HPFNormalTrace/HPFFT UA Auto SSBilirubin Ql (U)NegativeNormal Negativemg/dLFT UA Auto SSClarity (U)Clear (03/15/24 12:20 PM)NormalClearFTMC UA Auto SSColor (U)Colorless 1 *ABN* (03/15/24 12:20 PM)Invalid Interpretation CodeYellowFT UA Auto SSComment on above:Interpretive Data: Microscopic readings are only performed on those samples that meet specific criteria set forth by [facility].Epithelial cells.squamous Auto (Urine sed) [#/Area]0-2 graded/HPF Invalid Interpretation CodeFTMC UA Auto SSGlucose Ql (U)NegativeNormal Negativemg/dLFTMC UA Auto SSHemoglobin Auto test strip (U) [Mass/Vol]Negative NormalNegativemg/dLFTMC UA Auto SSKetones Auto test strip Ql (U)NegativeNormal Negativemg/dLFTMC UA Auto SSLeukocyte esterase Auto test strip Ql (U)75 Jacoby/uL Jacoby/uLInvalid Interpretation CodeNegativeLeu/uLFTMC UA Auto SSMucus Auto Ql (U) NegativeNormalNegativegraded/LPFFTMC UA Auto SSNitrite Auto test strip Ql (U) NegativeNormalNegativemg/dLFTMC UA Auto SSpH (U)5.5 *NA* (03/15/24 12:20 PM)Invalid Interpretation Code5.0 - 9.0FTMC UA Auto SSProtein Ql (U)NegativeNormalNegativemg/dLFTMC UA Auto SSRBC Ql (U)0-3 graded/HPFNormal 0-3graded/HPFAMERICAN HOSPITAL ASSOCIATION UA Auto SSSpecific gravity (U) [Rel density]1.004 *NA* (03/15/24 12:20 PM)Invalid Interpretation Code1.005 - 1.030[facility] UA Auto SS Urobilinogen (U) [Mass/Vol]NegativeNormalNegativemg/dLAMERICAN HOSPITAL ASSOCIATION UA Auto SSWBC Auto (Urine sed) [#/Area]0-5 graded/HPFNormal0-5graded/[facility] UA Auto SSURINALYSIS Ordered By: Vera Moss on 17-22-6245OG Spec DescClean Catch (03/15/24 12:20 PM)NormalAMERICAN HOSPITAL ASSOCIATION UA Auto SSeGFRon 34-23-0494gHHD25 mL/min/1.73 m2 Low>=59Fisher [facility] Orthopaedic InstituteComment on above:Performed By: #### [id number] #### [facility] [address], [place] [address]OJGFOWCIZEdzlkex By: SYSTEM SYSTEM on 22-35-4851Lccczle [Mass/Vol]4.1 g/dLNormal3.3 - 5.0 gm/dLRemisol ChemAlbumin/Globulin [Mass ratio] 1.7 {ratio}Normal1.1 - 2.2Remisol ChemAlk Phos99 [iU]/dHigh21 - 98 Int._Unit/L Remisol OfroWRH80 [iU]/dNormal6 - 46 Int._Unit/LRemisol ChemAnion gap [Moles/Vol]12 mmol/LNormal6 - 16 mEq/LRemisol PauaXLS07 [iU]/dNormal5 - 43 Int._Unit/LRemisol ChemBili Total0.8 mg/dLNormal0.0 - 1.1 mg/dLRemisol Chem Calcium [Mass/Vol]9.5 mg/dLNormal8.9 - 11.1 mg/dLRemisol ChemChloride [Moles/Vol]105 mmol/VUeurfk220 - 111 mmol/LRemisol ChemCholesterol [Mass/Vol]219 mg/mWWhzz529 - 200 mg/dLRemisol ChemCholesterol in HDL [Mass/Vol]93 mg/dL Invalid Interpretation CodeRemisol ChemComment on above:Result Comment: '>= 60 LOW RISK' '<= 40 HIGH RISK'Cholesterol in LDL [Mass/Vol]94 mg/dLNormal<=129mg/dLRemisol ChemCholesterol in VLDL [Mass/Vol]33 mg/dLNormal7 - 40 mg/dLRemisol ChemCO2 [Moles/Vol]28 mmol/IVdwslg62 - 31 mmol/LRemisol ChemCreatinine [Mass/Vol]1.2 mg/dLNormal0.5 - 1.3 mg/dLRemisol MrsmoADB48 mL/min/1.73 m2Low>=59mL/min/1.73 m2 Remisol ChemFree T4 [Mass/Vol]0.95 ng/dLNormal0.58 - 1.64 ng/dLRemisol Chem Globulin (S) [Mass/Vol]2.4 g/dLNormal1.4 - 4.0 gm/dLRemisol ChemGlucose [Mass/Vol]97 mg/zXIbxieq47 - 199 mg/dLRemisol ChemPotassium [Moles/Vol]4.0 mmol/LNormal3.5 - 5.3 mmol/LRemisol ChemProtein [Mass/Vol]6.5 g/dLNormal6.0 - 7.8 gm/dLRemisol ChemSodium [Moles/Vol]141 mmol/LEjlfih612 - 145 mmol/LRemisol ChemTriglyceride [Mass/Vol]167 mg/dLHigh<=149mg/dLRemisol ChemTSH Qn1.81 m[IU]/L Normal0.34 - 5.60 mcIU/mLRemisol ChemUrea nitrogen [Mass/Vol]22 mg/dLHigh5 - 21 mg/dLRemisol ChemUrea nitrogen/Creatinine [Mass ratio]18 mg/nfFsdrba82 - 20 Remisol ChemVitamin D 25 Fjuzuxr13.1 ng/mLLow30.0 - 100.0 ng/mLRemisol Chem HEMATOLOGYOrdered By: SYSTEM SYSTEM on 03-26-4333Hciyxyzal/100 WBC (Bld)0.6 % Normal0.0 - 2.0 %[facility] HemeAutoSSBasophils/Leukocytes Auto (Bld) [Pure # fraction]0.0 E9/LNormal0.0 - 0.2 E9/LFTMC HemeAutoSSEosinophils/100 WBC (Bld)1.0 %Normal0.0 - 8.0 %[facility] HemeAutoSSEosinophils/Leukocytes Auto (Bld) [Pure # fraction]0.1 E9/LNormal0.0 - 0.5 E9/LFTMC HemeAutoSSLymphocytes/100 WBC (Bld) 22.6 %Pmpyhv75.0 - 50.0 %[facility] HemeAutoSSLymphocytes/Leukocytes Auto (Bld) [Pure # fraction]1.3 E9/LNormal1.0 - 4.0 E9/LFTMC HemeAutoSSMonocytes/100 WBC (Bld)5.5 %Normal4.0 - 14.0 %[facility] HemeAutoSSMonocytes/Leukocytes Auto (Bld) [Pure # fraction]0.3 E9/LNormal0.2 - 1.0 E9/LFTMC HemeAutoSSNeutrophils/100 WBC (Bld) 70.3 %Eelwhv30.0 - 75.0 %[facility] HemeAutoSSNeutrophils/Leukocytes Auto (Bld) [Pure # fraction]4.2 E9/LNormal2.0 - 7.5 E9/LFTMC HemeAutoSSHEMATOLOGYOrdered By: Carolyn Rust on 55-88-4482Bbkxwackwfm distribution width (RBC) [Ratio]13.9 % Achhsc31.9 - 14.2 %[facility] HemeAutoSSHematocrit (Bld) [Volume fraction]36.1 %Normal 34.0 - 46.0 %[facility] HemeAutoSSHemoglobin (Bld) [Mass/Vol]12.0 g/gVDdwjku25.0 - 16.0 gm/dLFTMC HemeAutoSSMCH (RBC) [Entitic mass]29.1 akNarfrr58.0 - 34.0 pgFTMC HemeAutoSSMCHC (RBC) [Mass/Vol]33.1 g/wGIfnwhi95.4 - 36.0 gm/dLFTMC HemeAutoSS MCV (RBC) [Entitic vol]87.9 gOCnytfn44.0 - 100.0 fLFTMC HemeAutoSSPlatelet mean volume (Bld) [Entitic vol]7.9 fLNormal6.4 - 10.8 fLAMERICAN HOSPITAL ASSOCIATION HemeAutoSSPlatelets (Bld) [#/Vol]231.0 E9/PAiphtu897.0 - 500.0 E9/[facility] HemeAutoSSRBC (Bld) [#/Vol] 4.1 E12/LLow4.3 - 5.9 E12/[facility] HemeAutoSSWBC corrected for nucl RBC Auto (Bld) [#/Vol]5.9 E9/LNormal4.0 - 11.0 E9/[facility] HemeAutoSSC Bldon 10-14-2022 Bld Final No growth at 5 days.NormalLutheran HospitalComment on above: Performed By: #### [employer] #### [place] [id number].eGFRon 83-98-2500Wfdnzvzwq GFR54 mL/min/1.73m?Low>=60Lutheran HospitalComment on above:Result Comment: [facility] have implemented the eGFR calculation approach that does not havea coefficient for race and that conforms to [...] maximum of SCr/? or 1 Age = yearsPerformed By: #### EGFR ####[address] [address]GQQ w/ Diffon 53-09-0250Dnufjhgusqq distribution width (RBC) [Ratio]16.3 %High11.6-14.8BSumma Health Akron CampusComment on above: Performed By: #### CD:[id number] #### [address] [address]Xabhpyueyk (Bld) [Volume fraction]31.7 %Low36.0-46.0Lutheran HospitalComment on above:Performed By: #### CD:[id number] #### [address] [address]Vwqzafkvoe (Bld) [Mass/Vol]10.6 g/dLLow12.0-16.0Lutheran HospitalComment on above:Performed By: #### CD:[id number] #### [address] [address]LLF (RBC) [Entitic mass]31.5 slEhiazx93.0-35.0Lutheran HospitalComment on above:Performed By: #### CD:[id number] #### [address] [address]TIAS42.5 %Wccypr44.0-37.0Lutheran HospitalComment on above:Performed By: #### CD:[id number] #### [address] [address]RDO (RBC) [Entitic vol]94.0 vLJlipjq36.0-100.0Lutheran HospitalComment on above:Performed By: #### CD:[id number] #### [address] [address]Mgktzyrn926 x10*3/atOVcjxva596-902EkrkfsdulLutheran HospitalComment on above:Performed By: #### CD:[id number] #### [address] [address]Nkoobzvy mean volume (Bld) [Entitic vol]8.7 fLNormal6.7-10.6 Lutheran HospitalComment on above:Performed By: #### CD:[id number] #### [address] [address]UKC1.37 x10*6/mcLLow3.80-5.20[facility] Comment on above:Performed By: #### CD:[id number] #### [address] [address]ZTF7.5 x10*3/mcLNormal4.5-11.0[facility] Comment on above:Performed By: #### CD:[id number] #### [address] [address]Taxd Autoon 04-19-8505Aimk Absolute0.0 x10*3/mcLNormal0.0-0.2 Lutheran HospitalComment on above:Performed By: #### CD:[id number] #### [address] [address]Cnefivjht/100 WBC (Bld)0.6 %Normal0.0-1.5BSumma Health Akron CampusComment on above:Performed By: #### CD:[id number] #### [address] [address]Bya Absolute0.1 x10*3/mcLNormal0.0-0.4BSumma Health Akron CampusComment on above:Performed By: #### CD:[id number] #### [address] [address]Vtomnlyvsef/100 WBC (Bld)2.1 %Normal0.0-5.4BSumma Health Akron CampusComment on above:Performed By: #### CD:[id number] #### [address], [place] [address]Inscr Absolute0.8 x10*3/mcLLow1.0-4.8BSumma Health Akron CampusComment on above:Performed By: #### CD:[id number] #### [address] [address]Kroazpvcfnq/100 WBC (Bld)12.1 %Low27.2-40.8BSumma Health Akron CampusComment on above:Performed By: #### CD:[id number] #### [address] [address]Dxjs Absolute0.4 x10*3/mcLNormal0.1-1.1BSumma Health Akron CampusComment on above:Performed By: #### CD:[id number] #### [address] [address]Dvowofawf/100 WBC (Bld)6.2 %Normal3.7-11.9BSumma Health Akron CampusComment on above:Performed By: #### CD:[id number] #### [address] [address]Mxdioa Absolute5.1 x10*3/mcLNormal1.8-7.7BSumma Health Akron CampusComment on above:Performed By: #### CD:[id number] #### [address] [address]Xxowmv Auto79.0 %High47.2-70.8BSumma Health Ak[facility] Campus Comment on above:Performed By: #### CD:[id number] #### [address] [address]Tduydzipi Clinical Summaryon 93-10-4826Uiocxlvyj Clinical Summary[address] [address] [address] Clinical Summary Person Information Name: Marley Osborn Age: 66 Years : 1955 Sex: Female PCP: Tamika ROPER, Jamil Marital Status: Phone: PCP: [phone] Race: White Ethnicity: Not or Language: Guatemalan Visit Id: Visit Reason: hypernatremia, AMS Speciality: Acuity: Enc Type: Inpatient Med Service: Medicine-General Arrival: 10/09/2022 08:56:04 Discharge: Dispo Type: Address: [address] [place] [address] Diagnosis: 1:Hypernatremia; 2:Schizophrenia; 3:Hypothermia; 4:Metabolic encephalopathy; 5:Chronic [...] range between ( 27.2 and 40.8 ) [place] Auto: 6.2 % -- Normal range between [...] range between ( 36.0 and 46.0 ) [place] Absolute: 0.4 x10 MCH: 31.5 pg -- [...] 2:01 PM Creatine Phosphokinas (more content not included)...NormalLutheran HospitalMagnesiumon 34-52-2779Qqksppvzc [Mass/Vol]1.8 mg/dLNormal1.7-2.4 Lutheran HospitalComment on above:Performed By: #### CD:[id number] #### [address] [address]Ofakpfezhv Progress Noteon 62-94-3112Wsjuqesirb Progress Note Subjective at bedside. Plan is [...] Ativan, 1 mg= 0.5 mL, IV Push, k5rr-Xswdggvs Times, PRN Benadryl, 25 mg, Oral, q6hr, [...] with Isotonic IVF at outside facility without improvements.Serum sodium range 150-156 mmol/L. Calculated free water deficits 2.75L. She has chronic hypernatremia with appropriate rate of correction on hypotonic IV fluid replacement. DNR CC status with comfort measures. She has minimal intake with poor prognosis, plan is for transfer to hospice center closer to patients home so her can be there. Agree with plan. Patient was transferred from [facility] for hypernatremia, AMS, hypotension, hypothermia, UTI and multiple electrolyte imbalances. Sodium level on 10/04/22 was elevated at 150. Admission to [facility] ER her sodium was 158 at 13:25. [...] signed by Kei Casas MD 10/13/22 14:56 EDTNoMetroHealth [facility] Neurology Progress Noteon 19-91-5136Jnsaqyrsi Progress NoteSubjective Abnormal monoclonal: We will talk about possible clinical alf where that is here are neurodiagnostic studies [...] Ativan, 1 mg= 0.5 mL, IV Push, u3rf-Tjoypxsp Times, PRN Benadryl, 25 mg, Oral, q6hr, [...] stable. Refractory schizophrenia. would prefer hospice and Ord 5. Chronic anticoagulation 6. Bradycardia 7. Encounter for palliative care Electronically signed by Cody Schulz MD 10/13/22 09:49 EDTNoMetroHealth [facility] Progress Note-Nurseon 04-06-8472Xfwvdsnt Note-Nursereport called to recieving facility. Electronically signed by Janell Patrick 10/13/22 15:54 EDTNoMetroHealth Cleveland Heights Medical CenterRenal Panel on 99-95-7201Ltcjumw [Mass/Vol]3.3 g/dLNormal3.2-4.9BSumma Health Akron CampusComment on above:Performed By: #### BNP #### [address], [place] [address]Sazba gap [Moles/Vol]10 mmol/LNormal7-17Lutheran HospitalComment on above:Performed By: #### BNP #### [address], [place] [address]Dgipvxy [Mass/Vol]9.4 mg/dLNormal8.5-10.3BSumma Health Akron CampusComment on above:Performed By: #### BNP #### [address], [place] [address]Wrtgfvnp [Moles/Vol]108 mmol/PZibimw99-547RgozbdwxnLutheran HospitalComment on above:Performed By: #### BNP #### [address], [place] [address]WW7 [Moles/Vol]27 mmol/QJxgspc84-69LpnwivnddLutheran HospitalComment on above:Performed By: #### BNP #### [address], [place] [address]Tmvhucskgs [Mass/Vol]1.11 mg/dLHigh0.44-1.03Bl[facility] Health SystemComment on above:Performed By: #### BNP #### [address] [address]Wychhyq [Mass/Vol]114 mg/lBDkkc04-31YswujcddwLutheran HospitalComment on above:Performed By: #### BNP #### [address] [address]Nubaktihv [Mass/Vol]2.4 mg/dLLow2.5-4.6BSumma Health Akron CampusComment on above:Performed By: #### BNP #### [address] [address]Ranrbzzla [Moles/Vol]4.1 mmol/LNormal3.4-4.8BSumma Health Akron CampusComment on above:Performed By: #### BNP #### [address] [address]Dkvfkj [Moles/Vol]141 mmol/RNbsqfg748-042UyxmejnlhLutheran HospitalComment on above:Performed By: #### BNP #### [address] [address]Jbzi nitrogen [Mass/Vol]10 mg/dLNormal8-26Lutheran HospitalComment on above:Performed By: #### BNP #### [address] [address]Vfqu nitrogen/Creatinine [Mass ratio]9.0 mg/mgLow10.0-20.0 Lutheran HospitalComment on above:Performed By: #### BNP #### [address] [address].eGFRon 09-74-9834Exidvdxgl GFR50 mL/min/1.73m?Low>=60Lutheran HospitalComment on above:Result Comment: [facility] have implemented the eGFR calculation approach that does not havea coefficient for race and that conforms to [...] maximum of SCr/? or 1 Age = yearsPerformed By: #### EGFR ####[address] [address]Swqat Metabolic Profileon 23-88-5404Lzvkw gap [Moles/Vol] 9 mmol/LNormal7-17Lutheran HospitalComment on above:Performed By: #### [id number] #### [address] [address]Iaucvhu [Mass/Vol]9.2 mg/dLNormal8.5-10.3BSumma Health Ak[facility] CampusComment on above:Performed By: #### CD:[id number] #### [address] [address]Wdvvkfbw [Moles/Vol]111 mmol/XRhbs99-481LezokhttxLutheran HospitalComment on above:Performed By: #### CD:[id number] #### [address] [address]SD7 [Moles/Vol]29 mmol/XEvhasf91-25XanboafwoLutheran HospitalComment on above:Performed By: #### CD:[id number] #### [address] [address]Ocweclzyyv [Mass/Vol]1.19 mg/dLHigh0.44-1.03Lutheran HospitalComment on above:Performed By: #### CD:[id number] #### [address] [address]Pzrbnec [Mass/Vol]109 mg/kXNfog93-03LzjsfptgrLutheran HospitalComment on above:Performed By: #### CD:[id number] #### [address] [address]Nhwgkdzof [Moles/Vol]4.2 mmol/LNormal3.4-4.8BSumma Health Akron CampusComment on above:Performed By: #### CD:[id number] #### [address] [address]Enhhee [Moles/Vol]145 mmol/IGbmf225-602GegfjosogLutheran HospitalComment on above:Performed By: #### CD:[id number] #### [address] [address]Bixw nitrogen [Mass/Vol]16 mg/dLNormal8-26Lutheran HospitalComment on above:Performed By: #### CD:[id number] #### [address] [address]Twpo nitrogen/Creatinine [Mass ratio]13.4 mg/skYbfqog83.0-20.0 Lutheran HospitalComment on above:Performed By: #### CD:[id number] #### [address] [address]Hwgolplvto Progress Noteon 55-01-8180Fwcvpvgayc Progress Note Subjective at bedside. Palliative care is on, her code status is DNR-CC comfort care. Dr Casas discussprognosis with , at this time, he wants [...] Ativan, 1 mg= 0.5 mL, IV Push, k3gs-Xxouhsrs Times, PRN Benadryl, 25 mg, Oral, q6hr, [...] with Isotonic IVF at outside facility without improvements.Serum sodium range 150-156 mmol/L. Calculated free water deficits 2.75L. She has chronic hypernatremia with appropriate rate of correction on hypotonic IV fluid replacement. DNR CC status with comfort measures. She has minimal intake with poor prognosis, at this time the states no feeding tube, but noplan for hospice noted. Will continue with IVF at this time. Patient was transferred from [facility] for hypernatremia, AMS, hypotension, hypothermia, UTI and multiple electrolyte imbalances. Sodium level on 10/04/22 was elevated at 150. Admission to [facility] ER her sodium was 158 at 13:25. [...] reviewed and discussed assessment and plan with nursepractitioner Rachel Day CNP, APRN. I agree with the progress notes written. Electronically signed by Kei Casas MD 10/12/22 11:21 EDTNoMet[facility] Progress Noteon 74-70-2320Qlsaepsmu Progress NoteSubjective A little more awake being fed yogurt [...] Ativan, 1 mg= 0.5 mL, IV Push, u0du-Swwlyfcn Times, PRN Benadryl, 25 mg, Oral, q6hr, [...] signed by Cody Schulz MD 10/12/22 14:21 [facility] C Urineon 10-11-2022 UrineOrder added by Discern rule. Final 50-100,000 cfu/ml Enterococcus faecalis isolated ORGANISM [employer] SUSCEPTIBILITY ORGANISM ID: 1 ANTIBIOTIC INTERPRETATION TIMOTHY STATUS POS Enterococcus faecalis Ampicillin S <=2 V Ciprofloxacin R >=8 V Daptomycin S 4 V Gentamicin synergy R Syn-R V Levofloxacin R >=8 V Nitrofurantoin S <=16 V Streptomycin synergy R Syn-R V Tetracycline R >=16 V Vancomycin S 1 VNKettering Health PrebleComment on above:Performed By: #### URC ####[facility] (DEFAULT)[address] [place], [place] [address]GCVZQKSZNEASTERN STATE HOSPITAL[address] [place], [place] [address]Zzocqcqfbq Progress Noteon 37-02-1269Cpqgkielvt Progress NoteSubjective Events noted. Patient remains obtunded. One-on-one sitter [...] Ativan, 1 mg= 0.5 mL, IV Push, t5pu-Jwqjvcqy Times, PRN Benadryl, 25 mg, Oral, q6hr, [...] with Isotonic IVF at outside facility without improvements.Serum sodium range 150-156 mmol/L. Calculated free water deficits 2.75L. She has chronic hypernatremia with appropriate rate of correction on hypotonic IV fluid replacement. No labs drawn due to DNR CC status with comfort measures only Patient was transferred from [facility] for hypernatremia, AMS, hypotension, hypothermia, UTI and multiple electrolyte imbalances. Sodium level on 10/04/22 was elevated at 150. Admission to [facility] ER her sodium was 158 at 13:25. [...] signed by Kei Casas MD 10/11/22 11:57 [facility] Neurology Progress Noteon 39-59-9550Fcftajfuo Progress NoteSubjective Patient does remain intermittently lethargic was able [...] Ativan, 1 mg= 0.5 mL, IV Push, n3pu-Jddfacfa Times, PRN Benadryl, 25 mg, Oral, q6hr, [...] care for now check metabolic profile in themorning 3. Hypothermia 4. Metabolic encephalopathy 5. Chronic anticoagulation 6. Bradycardia 7. Encounter for palliative care Orders: Basic Metabolic Profile Electronically signed by Cody Schulz MD 10/11/22 19:25 [facility] .eGFRon 65-30-2087Gjtgqitke GFR50 mL/min/1.73m?Low>=60Lutheran HospitalComment on above:Result Comment: [facility] have implemented the eGFR calculation approach that does not havea coefficient for race and that conforms to [...] maximum of SCr/? or 1 Age = yearsPerformed By: #### CD:[id number] #### [address] [address]Avuomuczo GFR48 mL/min/1.73m?Low>=60Lutheran HospitalComment on above:Result Comment: [facility] have implemented the eGFR calculation approach that does not havea coefficient for race and that conforms to [...] maximum of SCr/? or 1 Age = yearsPerformed By: #### CD:[id number] #### [address] [address]Ggyggpxop GFR47 mL/min/1.73m?Low>=60Lutheran HospitalComment on above:Result Comment: [facility] have implemented the eGFR calculation approach that does not havea coefficient for race and that conforms to [...] maximum of SCr/? or 1 Age = yearsPerformed By: #### COMP #### [address] [address]Kqrfntlrz GFR39 mL/min/1.73m?Low>=60Lutheran HospitalComment on above:Result Comment: [facility] have implemented the eGFR calculation approach that does not havea coefficient for race and that conforms to [...] maximum of SCr/? or 1 Age = yearsPerformed By: #### COMP #### [address] [address]Ivvtmbtet GFR45 mL/min/1.73m?Low>=60Lutheran HospitalComment on above:Result Comment: [facility] have implemented the eGFR calculation approach that does not havea coefficient for race and that conforms to [...] maximum of SCr/? or 1 Age = yearsPerformed By: #### CD:[id number] #### [address] [address]N14/Folate Lvlon 74-19-8753Uonkbivbx (Vitamin B12) [Mass/Vol] 793 pg/eXZkxxnd675-629SnueuhekmSumma Health Akron CampusComment on above:Performed By: #### BNP #### [address] [address]Acdvrh Lvl10.3 ng/mLNormal>=5.9BSumma Health Akron Campus Comment on above:Result Comment: A WHO Technical Consultation has determined that deficient Folate concentrations are considered to be less than 4 ng/mL. Performed By: #### BNP #### [address] [address]Nwfny Metabolic Profileon 06-46-4076Jodlw gap [Moles/Vol]8 mmol/LNormal7-17Lutheran HospitalComment on above:Order Comment: until sodium normalizedPerformed By: #### CD:[id number] #### [address] [address]Tfuzmfr [Mass/Vol]8.8 mg/dLNormal8.5-10.3BSumma Health Akron CampusComment on above:Order Comment: until sodium normalizedPerformed By: #### CD:[id number] #### [address] [address]Mbskdkwj [Moles/Vol]113 mmol/MVplu92-787RwwvpbvmfLutheran HospitalComment on above:Order Comment: until sodium normalizedPerformed By: #### CD:[id number] #### [address] [address]HQ3 [Moles/Vol]28 mmol/IEvxvar48-48CarnfkqelLutheran HospitalComment on above:Order Comment: until sodium normalizedPerformed By: #### CD:[id number] #### [address] [address]Tewcwkrjyc [Mass/Vol]1.20 mg/dLHigh0.44-1.03Lutheran HospitalComment on above:Order Comment: until sodium normalizedPerformed By: #### CD:[id number] #### [address] [address]Ixxltti [Mass/Vol]112 mg/lWEdjt00-53BqmalwwvxLutheran HospitalComment on above:Order Comment: until sodium normalizedPerformed By: #### CD:[id number] #### [address] [address]Zrfexhhkz [Moles/Vol]3.4 mmol/LNormal3.4-4.8BSumma Health Akron CampusComment on above:Order Comment: until sodium normalizedPerformed By: #### CD:[id number] #### [address] [address]Xuwaew [Moles/Vol]146 mmol/JPsfb366-729EzgqbzheuLutheran HospitalComment on above:Order Comment: until sodium normalizedPerformed By: #### CD:[id number] #### [address] [address]Ljpo nitrogen [Mass/Vol]26 mg/dLNormal8-26Blanch[facility] Valley Health SystemComment on above:Order Comment: until sodium normalizedPerformed By: #### CD:[id number] #### [address] [address]Svtk nitrogen/Creatinine [Mass ratio]21.7 mg/ofYlrn09.0-20.0 Lutheran HospitalComment on above:Order Comment: until sodium normalizedPerformed By: #### CD:[id number] #### [address] [address]Mkjmp gap [Moles/Vol]9 mmol/LNormal7-17Lutheran HospitalComment on above:Order Comment: until sodium normalizedPerformed By: #### COMP #### [address] [address]Zvgzknq [Mass/Vol]9.1 mg/dLNormal8.5-10.3BSumma Health Akron CampusComment on above:Order Comment: until sodium normalizedPerformed By: #### COMP #### [address] [address]Ynlvtdxe [Moles/Vol]114 mmol/CFvzn26-519HwyotuldrLutheran HospitalComment on above:Order Comment: until sodium normalizedPerformed By: #### COMP #### [address] [address]LE0 [Moles/Vol]29 mmol/EQrkvay52-43QjqnmelvqLutheran HospitalComment on above:Order Comment: until sodium normalizedPerformed By: #### COMP #### [address] [address]Npkubqeqti [Mass/Vol]1.25 mg/dLHigh0.44-1.03Lutheran HospitalComment on above:Order Comment: until sodium normalizedPerformed By: #### COMP #### [address] [address]Aymhwlj [Mass/Vol]101 mg/nAMtvt85-73LljnahgvbLutheran HospitalComment on above:Order Comment: until sodium normalizedPerformed By: #### COMP #### [address] [address]Ravysgfgm [Moles/Vol]3.6 mmol/LNormal3.4-4.8BSumma Health Akron CampusComment on above:Order Comment: until sodium normalizedPerformed By: #### COMP #### [address] [address]Gfrofh [Moles/Vol]148 mmol/ZDepk200-309UckxizwxdLutheran HospitalComment on above:Order Comment: until sodium normalizedPerformed By: #### COMP #### [address] [address]Mxlu nitrogen [Mass/Vol]27 mg/dLHigh8-26Lutheran HospitalComment on above:Order Comment: until sodium normalizedPerformed By: #### COMP #### [address] [address]Isxu nitrogen/Creatinine [Mass ratio]21.6 mg/sbCuot76.0-20.0 Lutheran HospitalComment on above:Order Comment: until sodium normalizedPerformed By: #### COMP #### [address] [address]Ugpxf gap [Moles/Vol]12 mmol/LNormal7-17Lutheran HospitalComment on above:Order Comment: until sodium normalizedPerformed By: #### CD:[id number] #### [address] [address]Naxxgjz [Mass/Vol]9.0 mg/dLNormal8.5-10.3BSumma Health Akron CampusComment on above:Order Comment: until sodium normalizedPerformed By: #### CD:[id number] #### [address] [address]Lamobfln [Moles/Vol]112 mmol/IIaey20-282AyfnmugmdLutheran HospitalComment on above:Order Comment: until sodium normalizedPerformed By: #### CD:[id number] #### [address] [address]BL4 [Moles/Vol]28 mmol/YHgqagw78-50SyagegiknLutheran HospitalComment on above:Order Comment: until sodium normalizedPerformed By: #### CD:[id number] #### [address] [address]Hksevlmnbm [Mass/Vol]1.46 mg/dLHigh0.44-1.03Lutheran HospitalComment on above:Order Comment: until sodium normalizedPerformed By: #### CD:[id number] #### [address] [address]Dvkzvrq [Mass/Vol]111 mg/jTHptq61-62HycdiaeyeLutheran HospitalComment on above:Order Comment: until sodium normalizedPerformed By: #### CD:[id number] #### [address] [address]Fincrffjo [Moles/Vol]3.6 mmol/LNormal3.4-4.8BSumma Health Akron CampusComment on above:Order Comment: until sodium normalizedPerformed By: #### CD:[id number] #### [address] [address]Ueimns [Moles/Vol]148 mmol/XYuot046-284SithyhboyLutheran HospitalComment on above:Order Comment: until sodium normalizedPerformed By: #### CD:[id number] #### [address] [address]Fhcp nitrogen [Mass/Vol]26 mg/dLNormal8-26Lutheran HospitalComment on above:Order Comment: until sodium normalizedPerformed By: #### CD:[id number] #### [address] [address]Otfo nitrogen/Creatinine [Mass ratio]17.8 mg/arBryeir89.0-20.0 Lutheran HospitalComment on above:Order Comment: until sodium normalizedPerformed By: #### CD:[id number] #### [address] [address]Sfrny gap [Moles/Vol]10 mmol/LNormal7-17Lutheran HospitalComment on above:Order Comment: until sodium normalizedPerformed By: #### RENAL #### [address] [address]Wqxazrg [Mass/Vol]9.2 mg/dLNormal8.5-10.3BSumma Health Akron CampusComment on above:Order Comment: until sodium normalizedPerformed By: #### RENAL #### [address] [address]Cqufaral [Moles/Vol]116 mmol/FRjow52-166UkqskqnfyLutheran HospitalComment on above:Order Comment: until sodium normalizedPerformed By: #### RENAL #### [address] [address]NE4 [Moles/Vol]29 mmol/ZAlxgha08-00JctcyhxesLutheran HospitalComment on above:Order Comment: until sodium normalizedPerformed By: #### RENAL #### [address] [address]Dwncshvkbe [Mass/Vol]1.29 mg/dLHigh0.44-1.03Lutheran HospitalComment on above:Order Comment: until sodium normalizedPerformed By: #### RENAL #### [address] [address]Rrbghsa [Mass/Vol]105 mg/lKJcdz72-52GwhlhlppuLutheran HospitalComment on above:Order Comment: until sodium normalizedPerformed By: #### RENAL #### [address] [address]Jflmawbin [Moles/Vol]3.7 mmol/LNormal3.4-4.8BSumma Health Akron CampusComment on above:Order Comment: until sodium normalizedPerformed By: #### RENAL #### [address] [address]Trbopq [Moles/Vol]151 mmol/BWdmc465-590KgxatbpquLutheran HospitalComment on above:Order Comment: until sodium normalizedPerformed By: #### RENAL #### [address] [address]Bagp nitrogen [Mass/Vol]28 mg/dLHigh8-26Lutheran HospitalComment on above:Order Comment: until sodium normalizedPerformed By: #### RENAL #### [address] [address]Xqrp nitrogen/Creatinine [Mass ratio]21.7 mg/crJltf46.0-20.0 Lutheran HospitalComment on above:Order Comment: until sodium normalizedPerformed By: #### RENAL #### [address] [address]MZI w/ Diffon 55-40-6125Zbihdvmecrw distribution width (RBC) [Ratio]16.6 %High11.6-14.8BSumma Health Akron CampusComment on above: Performed By: #### CBC ####[address] [address]Iyqxmaxrfc (Bld) [Volume fraction]30.2 %Low36.0-46.0 Lutheran HospitalComment on above:Performed By: #### CBC ####[address] [address]Jkainlmtvi (Bld) [Mass/Vol]10.0 g/dLLow12.0-16.0Lutheran HospitalComment on above:Performed By: #### CBC ####[address] [address]MMZ (RBC) [Entitic mass]31.2 woRqqeoi71.0-35.0Lutheran HospitalComment on above:Performed By: #### CBC ####[address] [address]EMAL78.0 %Vhmmau20.0-37.0 Lutheran HospitalComment on above:Performed By: #### CBC ####[address] [address]YKA (RBC) [Entitic vol]94.6 dQSqqedy39.0-100.0Lutheran HospitalComment on above:Performed By: #### CBC ####[address] [address]Toxpysvg901 x10*3/stBXqyuqi340-394GxzzwzvshLutheran HospitalComment on above:Performed By: #### CBC ####[address] [address]Dinvfpwn mean volume (Bld) [Entitic vol]8.5 fL Normal6.7-10.6BSumma Health Akron CampusComment on above:Performed By: #### CBC ####[address] [address]GVW6.19 x10*6/mcLLow3.80-5.20Lutheran HospitalComment on above:Performed By: #### CBC ####[address] [address]XYO2.6 x10*3/mcLNormal4.5-11.0Lutheran HospitalComment on above:Performed By: #### CBC ####[address] [address]HTEwh 36-37-8794Wpycdntj Iybwcnxjkocvw11 IU/AJrl85-592 Lutheran HospitalComment on above:Performed By: #### CD:[id number] #### [address] [address]Tpthlszdtvim Note - Genericon 75-87-2209Xlflmisqfbte Note - GenericChief Complaint change in mentation. 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 All medical history obtained from transfer paperwork and also patient's Freddy over the phone. Patient is currently residing at [facility]. Patient arrived to [facility] emergency department at 1317 on 10/08 from [facility],with initial blood pressure of 195/91, heart rate of 55 with subsequent pulse rates in the 40s, temp of 36.2, 100% on room air. Patient received 400 mg Cipro IV piggyback, was started on 5% dextrose in LR. Initial lab results showed a glucose of 96, creatinine 1.97, GFR 60, sodium of 158, potassium4.1. Normal hepatic function. UA showing positive nitrites, moderate leukocytes, WBC>100. CT of the head without contrast showed no acute intracranial abnormality. EKG showed sinus bradycardia. According to paperwork and report from [facility], with patient's underlying psychiatric disorders, baseline ranges from appropriate behavior to catatonia. Patient was admitted to [facility] on 09/28 due toworsening confusion and psychosis and in a catatonic state. In assessment dated 09/29, patient is noncommunicative does not cooperate, does not follow commands. Patient is seen in [facility] ICU and arouses to name but [...] Notes first episode occurring the day after [place]. He describes approximately 4 episodes with subsequent admissions to either [facility] or [facility], with this being the worst [...] 10/10/22 03:39:21 EXAM: XR (more content not included)...NormalLutheran Hospital Cortisolon 55-22-3758Jtsefdhk2.3 mcg/dLNormalLutheran Hospital Comment on above:Result Comment: Normals: 6.7 - 22.6 mcg/dL in A.M. < 10.0 mcg/dL in P.M.Performed By: #### COMP #### [facility] [address] [place], [place] [address]Nsmb,Urineon 94-16-8027Opgj,UrineSpecimen Description .URINE Culture ENTEROCOCCUS FAECALIS >[id number] CFU/ML Report Status FINAL 10/10/2022 SUSCEPTIBILITY Organism ENTEROCOCCUS FAECALIS Method TIMOTHY Ampicillin <=2 SUSCEPTIBLE Ciprofloxacin >=8 RESISTANT Levofloxacin >=8 RESISTANT Nitrofurantoin <=16 SUSCEPTIBLE Tetracycline >=16 RESISTANT Vancomycin 1 SUSCEPTIBLESusceptibleFirelands Regional Medical CenterComment on above: Performed By: #### URC #### [facility] [address] [place] [address] De Icer Element Winder: Jersey Dahl MD [facility] [address] [place] [address] De Icer Element Winder: Gonzalo Greene Autoon 99-68-3552Bhxd Absolute0.1 x10*3/mcL Normal0.0-0.2BSumma Health Akron CampusComment on above:Performed By: #### .Automated Diff ####[facility] [place], [place] [address]Dfzluxapq/100 WBC (Bld)0.8 %Normal0.0-1.5BSumma Health Akron Campus Comment on above:Performed By: #### .Automated Diff ####[facility] [place], [place] [address]Qnk Absolute0.2 x10*3/mcLNormal 0.0-0.4BSumma Health Akron CampusComment on above:Performed By: #### .Automated Diff ####[address] [address]Nxhmtdstxht/100 WBC (Bld)2.4 %Normal0.0-5.4BSumma Health Akron Campus Comment on above:Performed By: #### .Automated Diff ####[address] [address]Peswb Absolute1.6 x10*3/mcLNormal 1.0-4.8BSumma Health Akron CampusComment on above:Performed By: #### .Automated Diff ####[address] [address]Zsobpmnnsfh/100 WBC (Bld)20.4 %Low27.2-40.8BSumma Health [facility] Campus Comment on above:Performed By: #### .Automated Diff ####[address] [address]Gsmr Absolute0.6 x10*3/mcLNormal 0.1-1.1BSumma Health Akron CampusComment on above:Performed By: #### .Automated Diff ####[address] [address]Vrmvaitzb/100 WBC (Bld)7.4 %Normal3.7-11.9BSumma Health [facility] Comment on above:Performed By: #### .Automated Diff ####[address] [address]Ehsqtz Absolute5.3 x10*3/mcL Normal1.8-7.7BTogus VA Medical Center SystemComment on above:Performed By: #### .Automated Diff ####[address] [address]Hnvjgv Auto69.0 %Euxzrt68.2-70.8BSumma Health Akron CampusComment on above:Performed By: #### .Automated Diff ####[address] [address]Bryj T4on 20-23-4236Ncrh T4 [Mass/Vol]1.20 ng/dL High0.61-1.12Lutheran HospitalComment on above:Result Comment: Reference Ranges for Females: Females, 1st Trimester 0.52 ? 1.10 ng/dL Females, 2nd Trimester 0.45 ? 0.99 ng/dL Females, 3rd Trimester 0.48 - 0.95 ng/dLPerformed By: #### BNP #### [facility] [address] [place] [address]EJP Brain + MRA Head w/o Contraston 53-03-4685OOP Brain + MRA Head w/o ContrastEXAM: MRI Brain + MRA Head w/o Contrast [...] Is Signed, Electronically Signed in Other Vendor System)Normal Lutheran HospitalComment on above:Order Comment: ATIVAN 2 MG IV IF NEEDEDMagnesiumon 91-25-4877Ctqeysuvc [Mass/Vol]2.2 mg/dLNormal1.7-2.4BSumma Health Akron CampusComment on above:Performed By: #### MG ####[address] [address]Cmzjoidzxl Progress Noteon 63-43-3021Uokxphjokl Progress NoteSubjective Patient evaluated in ICU. Spouse present during [...] Ativan, 1 mg= 0.5 mL, IV Push, i1em-Aarvdmwc Times, PRN Benadryl, 25 mg, Oral, q6hr, [...] with Isotonic IVF at outside facility without improvements.Serum sodium range 150-156 mmol/L. Calculated free water [...] hrs during correction. Patient was transferred from [facility] for hypernatremia, AMS, hypotension, hypothermia, UTI and multiple electrolyte imbalances. Sodium level on 10/04/22 was elevated at 150. Admission to [facility] ER her sodium was 158 at 13:25. [...] signed by Kei Casas MD 10/10/22 18:21 EDTNormalLutheran Hospital Osmol,Serumon 79-82-2574Tngqc Peowihgyvv030 mOsm/thWagl817-041RzhkkobovLutheran HospitalComment on above:Performed By: #### RENAL #### [address] [address]Ztbvg Panelon 50-00-8062Vasptuk [Mass/Vol]3.4 g/dLNormal3.2-4.9 Lutheran HospitalComment on above:Performed By: #### RENAL #### [address] [address]Bgcug gap [Moles/Vol]11 mmol/LNormal7-17Lutheran HospitalComment on above:Performed By: #### RENAL #### [address] [address]Ufarxkr [Mass/Vol]9.1 mg/dLNormal8.5-10.3BSumma Health Akron CampusComment on above:Performed By: #### RENAL #### [address] [address]Syephcuy [Moles/Vol]113 mmol/ZQtez43-098WwrthlsqwLutheran HospitalComment on above:Performed By: #### RENAL #### [address] [address]KU5 [Moles/Vol]28 mmol/YXkdauk07-41WrstgmizrLutheran HospitalComment on above:Performed By: #### RENAL #### [address] [address]Mevcrjnvfw [Mass/Vol]1.24 mg/dLHigh0.44-1.03Lutheran HospitalComment on above:Performed By: #### RENAL #### [address] [address]Tgovonh [Mass/Vol]93 mg/sXPuwzzc15-60HvxtzashlLutheran HospitalComment on above:Performed By: #### RENAL #### [address] [address]Rphveogfd [Mass/Vol]2.4 mg/dLLow2.5-4.6BSumma Health Akron CampusComment on above:Performed By: #### RENAL #### [address] [address]Lcitvufoo [Moles/Vol]3.6 mmol/LNormal3.4-4.8BSumma Health Akron CampusComment on above:Performed By: #### RENAL #### [address] [address]Oddbql [Moles/Vol]148 mmol/TUrui270-800HztwhxntvLutheran HospitalComment on above:Performed By: #### RENAL #### [address] [address]Ltdr nitrogen [Mass/Vol]26 mg/dLNormal8-26Lutheran HospitalComment on above:Performed By: #### RENAL #### [address] [address]Skjb nitrogen/Creatinine [Mass ratio]21.0 mg/qwKrxm67.0-20.0 Lutheran HospitalComment on above:Performed By: #### RENAL #### [address] [address]Lrzoqd Therapy Progress Noteon 92-97-1898Qnnbar Therapy Progress NoteSpeech therapy order automatically generated secondary to deferred nursing swallow screen. Swallow screen was deferred as patient was not alert. Spoke with primary RN. Patient is not alert today and not appropriate for PO trials. This automatic order will be discontinued. RN will obtain new orders w hen patient is alert, if appropriate at that time. Electronically signed by Wendy Hafsa Saul 10/10/22 14:50 EDTNormalLutheran Hospital TIBCon 65-73-9055Nsap [Mass/Vol]69 ug/yGImsupe85-653RvgshfylvLutheran HospitalComment on above:Performed By: #### COMP #### [address] [address]Lzxa Sat24.1 %Normal>=16.0Lutheran HospitalComment on above:Performed By: #### COMP #### [address] [address]KQUS995 mcg/eGLyleew155-394VotbgvwqyLutheran Hospital Comment on above:Performed By: #### COMP #### [address] [address]Ujvfsysovrn [Mass/Vol]204 mg/dTEtmios779-661IjxyqmvqmLutheran HospitalComment on above:Performed By: #### COMP #### [address] [address]TWLRhk 38-28-3215Tmyeprmymh [Mass/Vol]176.2 mg/dLNormal Lutheran HospitalComment on above:Order Comment: Ordered by Discern Rule for Protein-Creatinine Ratio.Result Comment: The reference range has not been established for this test on a random urine sample. The test result should be interpreted based on clinical context.Performed By: #### UCI #### [address] [address]Wg Idvdsur07 mg/dLHigh<=10Blanch[facility] Valley Health SystemComment on above:Order Comment: Ordered by Discern Rule for Protein-Creatinine Ratio. Performed By: #### UCI #### [address] [address]Lzvey Protein/Creatinine Ratio0.14Normal<=0.28Lutheran HospitalComment on above:Order Comment: Ordered by Discern Rule for Protein-Creatinine Ratio.Performed By: #### [employer]CI #### [address] [address]Zrot Acidon 57-22-0654Moayg [Mass/Vol]8.3 mg/dLHigh2.6-8.0 Lutheran HospitalComment on above:Performed By: #### BNP #### [address] [address]Dslqzfa D 25-Hydroxy Totalon 23-44-7210Lyhuxmq D 25-Hydroxy Total41 ng/uHFhftek83-926BwttstczrLutheran HospitalComment on above:Result Comment: Vitamin D 25-Hydroxy Total Reference Range: Deficient: < 20 Insufficient: 20 to < 30 Sufficient: 30 - 100 Upper Safety Limit: > 100Performed By: #### BNP #### [address] [address]E SSTon 88-29-2657Abrgb SSTCollectedNormalLutheran HospitalComment on above:Performed By: #### COMP #### [address] [address]XB Chest 1 Viewon 53-96-5973GZ Chest 1 ViewEXAM: XR Chest 1 View HISTORY: Line Placement, [...] Is Signed, Electronically Signed in Other Vendor System)Normal [facility].UA Microscp Aon 70-35-1315CD BacteriaPresent AbnormalAbsCincinnati VA Medical CenterComment on above:Performed By: #### CD:[id number] #### [address] [address]DL CA OxalatePresentAbnormalDoctors HospitalComment on above:Performed By: #### CD:[id number] #### [address] [address]TM MucusPresentAbnormalDoctors Hospital Comment on above:Performed By: #### CD:[id number] #### [address] [address]UX RBC Quant39 /HPFHigh0-5BSumma Health Akron CampusComment on above:Performed By: #### CD:[id number] #### [address] [address]BR Squepi Cells Quant1 /HPFNormal0-29Lutheran HospitalComment on above:Performed By: #### CD:[id number] #### [address] [address]VI WBC ClmpPresentAbnWVUMedicine Barnesville Hospital Comment on above:Performed By: #### CD:[id number] #### [address] [address]YH WBC Dwmlg381 /HPFHigh0-5BSumma Health Akron Campus Comment on above:Performed By: #### CD:[id number] #### [address] [address].eGFRon 35-28-5996Rcametaxn GFR47 mL/min/1.73m?Low>=60Lutheran HospitalComment on above:Result Comment: [facility] have implemented the eGFR calculation approach that does not havea coefficient for race and that conforms to [...] maximum of SCr/? or 1 Age = yearsPerformed By: #### BNP #### [address] [address]Odquouyhw GFR49 mL/min/1.73m?Low>=60Lutheran HospitalComment on above:Result Comment: [facility] have implemented the eGFR calculation approach that does not havea coefficient for race and that conforms to [...] maximum of SCr/? or 1 Age = yearsPerformed By: #### RENAL #### [address] [address]Hlghvdiaq GFR45 mL/min/1.73m?Low>=60Lutheran HospitalComment on above:Result Comment: [facility] have implemented the eGFR calculation approach that does not havea coefficient for race and that conforms to [...] maximum of SCr/? or 1 Age = yearsPerformed By: #### BNP #### [facility] [address] [place], [place] [address]Kxvotjlra GFR49 mL/min/1.73m?Low>=60Lutheran HospitalComment on above:Result Comment: [facility] have implemented the eGFR calculation approach that does not havea coefficient for race and that conforms to [...] maximum of SCr/? or 1 Age = yearsPerformed By: #### EGFR ####[facility] [place], [place] [address]Zzqloeeux GFR53 mL/min/1.73m?Low>=60Lutheran HospitalComment on above:Result Comment: [facility] have implemented the eGFR calculation approach that does not havea coefficient for race and that conforms to [...] maximum of SCr/? or 1 Age = yearsPerformed By: #### RENAL #### [facility] [address] [place], [place] [address]AXJ/1.73 sq M.predicted MDRD (S/P/Bld) [Vol rate/Area] mL/min/{1.73_m2}Normal>=60Lutheran HospitalComment on above:Result Comment: [facility] have implemented the eGFR calculation approach that does not havea coefficient for race and that conforms to [...] maximum of SCr/? or 1 Age = yearsPerformed By: #### EGFR ####[facility] [place], [place] [address]Rdacjczqp 06-83-5517Murbhhy (P) [Moles/Vol]31 umol/L Normal9-35Lutheran HospitalComment on above:Performed By: #### CD:[id number] #### [address] [address]ZACyr 06-06-1733Zfhoyigukih peptide B (Bld) [Mass/Vol]88 pg/mL Normal0-100Lutheran HospitalComment on above:Order Comment: CHRISTIAN Mittal came in while doing draws and saw BNP was marked as to be collected 10/10/2022 and had talked to pt's and asked for it to be collected today Performed By: #### COMP #### [address] [address]Esuexulzlko peptide B (Bld) [Mass/Vol]114 pg/mLHigh0-100 Lutheran HospitalComment on above:Performed By: #### BNP #### [address] [address]Itcok Metabolic Panelon 30-29-5342Xzxte gap [Moles/Vol]7 mmol/L Low9 - 17 mmol/LBON [facility]OURS MERCY HEALTHCalcium [Mass/Vol]10.4 mg/dL8.6 - 10.4 mg/dLBON SECOURS MERCY HEALTHChloride [Moles/Vol]117 mmol/LHigh98 - 107 mmol/L [facility] HEALTHCO2 [Moles/Vol]32 mmol/LHigh20 - 31 mmol/LBON [facility] MERCY HEALTHCreatinine [Mass/Vol]0.88 mg/dL0.50 - 0.90 mg/dLBON SECGL[facility]WO[facility] HEALTHGFR/1.73 sq M.predicted MDRD (S/P/Bld) [Vol rate/Area]- PINRUSSELL COUNTY MEDICAL CENTERComtrinity health [facility] on above: These results are not intended [...] therapy that affects renal tubular secretion. Glucose [Mass/Vol]118 mg/hKAfbo23 - 99 mg/dLBON [facility] Interpretation and review of laboratory resultsAbnormalBON [facility] Potassium [Moles/Vol]3.4 mmol/LLow3.7 - 5.3 mmol/LBON [facility] HOSPITALSodium [Moles/Vol]156 mmol/SCguz963 - 144 mmol/LBON [facility] YOUNGST[facility] HOSPITALUrea nitrogen [Mass/Vol]31 mg/dLHigh8 - 23 mg/dLBON MERCY HEALTH ST. [facility] YOUNGST[facility] HOSPITALUrea nitrogen/Creatinine (Bld) [Mass ratio]99Ndam8 - 20BON [facility] HOSPITALBON SECGL[facility]WO[facility] HEALTHAnion gap [Moles/Vol]6 mmol/LLow9 - 17 mmol/LBON [facility] HOSPITALCalcium [Mass/Vol]10.4 mg/dL8.6 - 10.4 mg/dLBON [facility] Chloride [Moles/Vol]118 mmol/LHigh98 - 107 mmol/LBON [facility] HOSPITALCO2 [Moles/Vol]32 mmol/LHigh20 - 31 mmol/LBON [facility] HEALTHCreatinine [Mass/Vol]0.91 mg/dLHigh0.50 - 0.90 mg/dLBON [facility] HEALTHGFR/1.73 sq M.predicted MDRD (S/P/Bld) [Vol rate/Area]- [facility] on above: These results are not intended [...] therapy that affects renal tubular secretion. Glucose [Mass/Vol]94 mg/dL70 - 99 mg/dLBON [facility]WO[facility] HOSPITALWhatSalonInterpretation and review of laboratory resultsAbnormalBON [facility]OSPITALPotassium [Moles/Vol]3.5 mmol/LLow3.7 - 5.3 mmol/LBON SECKINDR[facility]ITAL LIMASodium [Moles/Vol]156 mmol/QGxkx995 - 144 mmol/LBON [facility]GL[facility] HEALTHUrea nitrogen [Mass/Vol]32 mg/dLHigh8 - 23 mg/dLB[facility] AptoUrea nitrogen/Creatinine (Bld) [Mass ratio]97Atff8 - 20BON [facility] HOS[facility]ITALBON [facility] HOSPITALAnion gap [Moles/Vol]7 mmol/LLow9 - 17 mmol/LBON [facility] HEALTHCalcium [Mass/Vol]10.3 mg/dL8.6 - 10.4 mg/dLBON [facility] Chloride [Moles/Vol]117 mmol/LHigh98 - 107 mmol/LBON [facility] HEALTHCO2 [Moles/Vol]30 mmol/L20 - 31 mmol/LBON [facility] HOSPITALCreatinine [Mass/Vol] 0.9 mg/dL0.50 - 0.90 mg/dLBON [facility]WOOD [facility]IAL HOSPITALWhatSalonGFR/1.73 sq M.predicted MDRD (S/P/Bld) [Vol rate/Area]- PINFBON MERCY HEALTH ST. ELIZABETH YOUNGSTOWN HOSPITALComment on above: These results are not intended [...] therapy that affects renal tubular secretion. Glucose [Mass/Vol]140 mg/jMKmmm15 - 99 mg/dLB[facility] Apto Interpretation and review of laboratory resultsAbnormalBON [facility] Potassium [Moles/Vol]3.0 mmol/LLow3.7 - 5.3 mmol/LBON [facility] YOU[facility] HOSPITALSodium [Moles/Vol]154 mmol/LIqle223 - 144 mmol/LBON [facility] YOUNGST[facility] HOSPITALUrea nitrogen [Mass/Vol]32 mg/dLHigh8 - 23 mg/dLBON [facility] ST. [facility] YOUNGSTOWN HOSPITALUrea nitrogen/Creatinine (Bld) [Mass ratio]31Pibx8 - 20B[facility] SI[facility]X FALLSBasic Metabolic Profon 37-36-3485Esdvn gap [Moles/Vol]7 mmol/LLow9-17Firelands Regional Medical CenterComment on above:Performed By: #### LIPR #### [facility] [address] [place] [address] De [employer]cer Element Winder: Jersey Dahl MD #### CDP, CP #### [facility] [address] [place] [address] [place] [address] De Icer Element Winder: Kayley Doll MDBUN/CRE Xqcfq32Ydgp8-76QlcloFirelands Regional Medical Center Comment on above:Performed By: #### LIPR #### [facility] [address] [place] [address] De Icer Element Winder: Jersey Dahl MD #### CDP, CP #### [facility] [address] [place] [address] [address] [place] [id number] De Icer Element Winder: DAVIS Greenealcium [Mass/Vol]10.4 mg/dLNormal8.6-10.4Firelands Regional Medical CenterComment on above:Performed By: #### LIPR #### [facility] [address] [place] [address] De Icer Element Winder: Jersey Dahl MD #### CDP, CP #### [facility] [address] [place] [address] [place] [address] De Icer Element Winder: DAVIS Greenehloride [Moles/Vol]117 mmol/LXdzb49-933HulrbFirelands Regional Medical CenterComment on above:Performed By: #### LIPR #### [address] [place] [address] De Icer Element Winder: Jersey Dahl MD #### CDP, CP #### [address] [place], [place] 5049483 De Icer Element Winder: DAVIS GreeneO2 [Moles/Vol]32 mmol/RSrja73-62VmemxGlenbeigh Hospital on above:Performed By: #### LIPR #### [address] [address] De Icer Element Winder: Jersey Dahl MD #### CDP, CP #### [address] [place], [place] [id number] De Icer Element Winder: DAVIS Greenereatinine [Mass/Vol]0.88 mg/dLNormal0.50-0.90 [facility] on above:Performed By: #### LIPR #### [address] [address] De Icer Element Winder: Jersey Dahl MD #### CDP, CP #### [address] [place], [place] [phone] De Icer Element Winder: Kayley Doll MDGFR/1.73 sq M.predicted among non-blacks MDRD (S/P/Bld) [Vol rate/Area]mL/min/{1.73_m2}Normal>60[facility] Medical CenterComtrinity health [facility] hospital on above:Result Comment: These results are not intended for [...] or following therapy that affects renal tubular secretion.Performed By: #### LIPR #### [address] [address] De Icer Element Winder: Jersey Dahl MD #### CDP, CP #### [address] [place] [phone] De Icer Element Winder: Kayley Doll MDGlucose [Mass/Vol]118 mg/iIJrum17-36LvaicTriHealth McCullough-Hyde Memorial HospitalComment on above:Performed By: #### LIPR #### [address] [address] De Icer Element Winder: Jersey Dahl MD #### CDP, CP #### [address] [place] [phone] De Icer Element Winder: MOHAN Greeneotassium [Moles/Vol]3.4 mmol/LLow3.7-5.3Mst. vincent hospitaly Spangle HospitalComment on above:Performed By: #### LIPR #### [address] [address] De Icer Element Winder: Jersey Dahl MD #### CDP, CP #### [address] [place] [phone] De Icer Element Winder: LIZ Greeneodium [Moles/Vol]156 mmol/FMpgt634-171DkmjrFirelands Regional Medical CenterComment on above:Performed By: #### LIPR #### [address] [address] De Icer Element Winder: Jersey Dahl MD #### CDP, CP #### [address] [place] [phone] De Icer Element Winder: Kayley Doll MDUrea nitrogen [Mass/Vol]31 mg/dLHigh8-23Fire[facility] Medical CenterComment on above:Performed By: #### LIPR #### [address] [address] De Icer Element Winder: Jersey Dahl MD #### CDP, CP #### [facility] [address] [place] [address] [place] [address] De Icer Element Winder: Kayley Doll MDAnion gap [Moles/Vol]6 mmol/LLow9-17[facility] Medical CenterComment on above:Performed By: #### BMP #### [address] [place] [address] De Icer Element Winder: SULAIMAN GreeneN/CRE Qmbva80Lkym7-30IptgxFirelands Regional Medical Center Comment on above:Performed By: #### BMP #### [address] [place] [address] De Icer Element Winder: Kayley Doll MDCalcium [Mass/Vol]10.4 mg/dLNormal8.6-10.4[facility] HospitalComment on above:Performed By: #### BMP #### [address] [place] [address] De Icer Element Winder: DAVIS Greenehloride [Moles/Vol]118 mmol/DGcdy02-890Verjz Tiffin HospitalComment on above:Performed By: #### BMP #### [address] [place] [address] De Icer Element Winder: Kayley Doll MDCO2 [Moles/Vol]32 mmol/GEeuc88-11Hgxre [facility]iffin HospitalComment on above:Performed By: #### BMP #### [address] [place] [address] De Icer Element Winder: DAVIS Greenereatinine [Mass/Vol]0.91 mg/dLHigh0.50-0.90Fire[facility] Regional Medical CenterComment on above:Performed By: #### BMP #### [address] [place] [address] De Icer Element Winder: Kayley Doll MDGFR/1.73 sq M.predicted among non-blacks MDRD (S/P/Bld) [Vol rate/Area]mL/min/{1.73_m2}Normal>60[facility] Hospitalcy [facility] HospitalComment on above:Result Comment: These results are not intended for [...] or following therapy that affects renal tubular secretion.Performed By: #### BMP #### [address] [place] [address] De Icer Element Winder: Kayley Doll MDGlucose [Mass/Vol]94 mg/bGOjghko53-47Ilfpi Hartford HospitalComment on above:Performed By: #### BMP #### [address] [place], [facility] De Icer Element Winder: MOHAN Greeneotassium [Moles/Vol]3.5 mmol/LLow3.7-5.3Mst. vincent hospitaly Spangle HospitalComment on above:Performed By: #### BMP #### [address] [place], [place] [id number] De Icer Element Winder: LIZ Greeneodium [Moles/Vol]156 mmol/RWrge249-058WhkdbFirelands Regional Medical CenterComment on above:Performed By: #### BMP #### [address] [place], [place] 0235983 De Icer Element Winder: Kayley Doll MDUrea nitrogen [Mass/Vol]32 mg/dLHigh8-23[facility] HospitalComment on above:Performed By: #### BMP #### [address] [place] [address] De Icer Element Winder: Kayley Doll MDAnion gap [Moles/Vol]7 mmol/LLow9-17[facility] HospitalComment on above:Performed By: #### LIPR #### [address] [address] De Icer Element Winder: Jersey Dahl MD #### CDP, CP #### [address] [place], [place] [address]2583 De Icer Element Winder: Kayley Doll MDBUN/CRE Alowf56Jhrw1-08RwqmbFirelands Regional Medical Center Comment on above:Performed By: #### LIPR #### [address] [address] De Icer Element Winder: Jersey Dahl MD #### CDP, CP #### [address] [place], [place] 2672883 De Icer Element Winder: Kayley Doll MDCalcium [Mass/Vol]10.3 mg/dLNormal8.6-10.4Fire[facility] Regional Medical CenterComment on above:Performed By: #### LIPR #### [address] [address] De Icer Element Winder: Jersey Dahl MD #### CDP, CP #### [address] [place], [place] [phone] De Icer Element Winder: Kayley Doll MDChloride [Moles/Vol]117 mmol/YTyxa09-792MtaevFirelands Regional Medical CenterComment on above:Performed By: #### LIPR #### [address] [address] De Icer Element Winder: Jersey Dahl MD #### CDP, CP #### [address] [place], [place] [phone] De Icer Element Winder: Kayley Doll MDCO2 [Moles/Vol]30 mmol/LSuldsi73-29PmzvsFirelands Regional Medical CenterComment on above:Performed By: #### LIPR #### [address] [address] De Icer Element Winder: Jersey Dahl MD #### CDP, CP #### [address] [place], [place] [phone] De Icer Element Winder: DAVIS Greenereatinine [Mass/Vol]0.90 mg/dLNormal0.50-0.90 [facility] Medical CenterComment on above:Performed By: #### LIPR #### [address] [address] De Icer Element Winder: Jersey Dahl MD #### CDP, CP #### [address] [place] [address] De Icer Element Winder: Kayley Doll MDGFR/1.73 sq M.predicted among non-blacks MDRD (S/P/Bld) [Vol rate/Area]mL/min/{1.73_m2}Normal>60[facility] Medical CenterComment on above:Result Comment: These results are not intended for [...] or following therapy that affects renal tubular secretion.Performed By: #### LIPR #### [address] [address] De Icer Element Winder: Jersey Dahl MD #### CDP, CP #### [address] [place], [place] [phone] De Icer Element Winder: Kayley Doll MDGlucose [Mass/Vol]140 mg/bTHmyx43-25NqyzwTriHealth McCullough-Hyde Memorial HospitalComment on above:Performed By: #### LIPR #### [facility] [address] [place] [address] De Icer Element Winder: Jersey Dahl MD #### CDP, CP #### [address] [place] [address] De Icer Element Winder: MOHAN Greeneotassium [Moles/Vol]3.0 mmol/LLow3.7-5.3[facility] Hartford HospitalComment on above:Performed By: #### LIPR #### [address] [address] De Icer Element Winder: Jersey Dahl MD #### CDP, CP #### [address] [place] [address] De Icer Element Winder: LIZ Greeneodium [Moles/Vol]154 mmol/QVrna018-790CckwuFirelands Regional Medical CenterComment on above:Performed By: #### LIPR #### [address] [address] De Icer Element Winder: Jersey Dahl MD #### CDP, CP #### [address] [place] [place] [address] De Icer Element Winder: Kayley Doll MDUrea nitrogen [Mass/Vol]32 mg/dLHigh8-23[facility] Medical CenterComment on above:Performed By: #### LIPR #### [address] [address] De Icer Element Winder: Jersey Dahl MD #### CDP, CP #### [address] [place] [place] [address] De Icer Element Winder: Bill Greene gap [Moles/Vol]10 mmol/LNormal9-17[facility] Medical CenterComment on above:Performed By: #### LIPR #### [address] [address] De Icer Element Winder: Jersey Dahl MD #### CDP, CP #### [address] [place], [place] 6509983 De Icer Element Winder: Kayley Sturtz, MDBUN/CRE Jutvb22Jviq1-68RxepsFirelands Regional Medical Center Comment on above:Performed By: #### LIPR #### [address] [address] De Icer Element Winder: Jersey Dahl MD #### CDP, CP #### [address] [place], [place] 3423083 De Icer Element Winder: DAVIS Greenealcium [Mass/Vol]10.3 mg/dLNormal8.6-10.4[facility] HospitalComment on above:Performed By: #### LIPR #### [address] [address] De Icer Element Winder: Jersey Dahl MD #### CDP, CP #### [address] [place], [place] [address]01183 De Icer Element Winder: DAVIS Greenehloride [Moles/Vol]116 mmol/LZigq41-306Zraed Tiffin HospitalComment on above:Performed By: #### LIPR #### [address] [address] De Icer Element Winder: Jersey Dahl MD #### CDP, CP #### [address] [place], [place] [address]93783 De Icer Element Winder: DAVIS GreeneO2 [Moles/Vol]29 mmol/GVulpgw58-78Nmfrm [facility]iffin HospitalComment on above:Performed By: #### LIPR #### [address] [address] De Icer Element Winder: Jersey Dahl MD #### CDP, CP #### [address] [place], [place] 8058483 De Icer Element Winder: DAVIS Greenereatinine [Mass/Vol]0.94 mg/dLHigh0.50-0.90[facility] HospitalComment on above:Performed By: #### LIPR #### [address] [address] De Icer Element Winder: Jersey Dahl MD #### CDP, CP #### [address] [place], [place] 1823783 De Icer Element Winder: Kayley Doll MDGFR/1.73 sq M.predicted among non-blacks MDRD (S/P/Bld) [Vol rate/Area]mL/min/{1.73_m2}Normal>60MerBridgeport HospitalComment on above:Result Comment: These results are not intended for [...] or following therapy that affects renal tubular secretion.Performed By: #### LIPR #### [address] [address] De Icer Element Winder: Jersey Dahl MD #### CDP, CP #### [address] [place] [address] De Icer Element Winder: Kayley Doll MDGlucose [Mass/Vol]144 mg/zCCljj44-69Mbakg Hartford HospitalComment on above:Performed By: #### LIPR #### [address] [address] De Icer Element Winder: Jersey Dahl MD #### CDP, CP #### [address] [place] [address] De Icer Element Winder: MOHAN Greeneotassium [Moles/Vol]3.3 mmol/LLow3.7-5.3[facility] HospitalComment on above:Performed By: #### LIPR #### [address] [id number] De Icer Element Winder: Jersey Dahl MD #### CDP, CP #### [facility] [address] [place], [place] 8029483 De Icer Element Winder: LIZ Greeneodium [Moles/Vol]155 mmol/QNbyt259-098GwqpkFirelands Regional Medical CenterComment on above:Performed By: #### LIPR #### [address] [place] [address] De Icer Element Winder: Jersey Dahl MD #### CDP, CP #### [facility] [address] [place], [place] 2706083 De Icer Element Winder: Kayley Doll MDUrea nitrogen [Mass/Vol]35 mg/dLHigh8-23[facility] Medical CenterComment on above:Performed By: #### LIPR #### [address] [address] De Icer Element Winder: Jersey Dahl MD #### CDP, CP #### [facility] [address] [place], [place] 5713283 De Icer Element Winder: James Greene Metabolic Profileon 46-11-4749Nmpvb gap [Moles/Vol]10 mmol/LNormal7-17Lutheran HospitalComment on above: Order Comment: until sodium normalizedPerformed By: #### CD:[id number] ####[address] [address]Pdnfuji [Mass/Vol]9.1 mg/dLNormal8.5-10.3BSumma Health Akron CampusComment on above: Order Comment: until sodium normalizedPerformed By: #### CD:[id number] ####[address] [place], [place] [address]Aieljojc [Moles/Vol]117 mmol/UOvso64-176YpdsepkqhLutheran HospitalComment on above: Order Comment: until sodium normalizedPerformed By: #### CD:[id number] ####[address] [address]LQ6 [Moles/Vol]28 mmol/XNpzczz98-87UfalljxcaLutheran HospitalComment on above: Order Comment: until sodium normalizedPerformed By: #### CD:[id number] ####[address] [address]Fylnbizwfs [Mass/Vol]1.26 mg/dLHigh0.44-1.03Lutheran HospitalComment on above: Order Comment: until sodium normalizedPerformed By: #### CD:[id number] ####[address] [address]Hntyjde [Mass/Vol]90 mg/qWOympag24-01IzzidxhhzLutheran HospitalComment on above: Order Comment: until sodium normalizedPerformed By: #### CD:[id number] ####[address] [address]Tyndwvayi [Moles/Vol]3.9 mmol/LNormal3.4-4.8BSumma Health Akron CampusComment on above:Order Comment: until sodium normalizedPerformed By: #### CD:[id number] ####[address] [address]Hjkfzr [Moles/Vol]151 mmol/ZOund292-813WebjhetdpLutheran HospitalComment on above: Order Comment: until sodium normalizedPerformed By: #### CD:[id number] ####[address] [address]Wwcn nitrogen [Mass/Vol]30 mg/dLHigh8-26Lutheran HospitalComment on above:Order Comment: until sodium normalizedPerformed By: #### CD:[id number] ####[address] [address]Okif nitrogen/Creatinine [Mass ratio]23.8 mg/huJxqq92.0-20.0Lutheran HospitalComment on above:Order Comment: until sodium normalizedPerformed By: #### CD:[id number] ####[address] [address]Deswo gap [Moles/Vol]10 mmol/LNormal7-17[facility] Comment on above:Order Comment: until sodium normalizedPerformed By: #### CD:[id number] #### [address] [address]Bzaertq [Mass/Vol]9.2 mg/dLNormal8.5-10.3BTogus VA Medical Center SystemComment on above:Order Comment: until sodium normalizedPerformed By: #### CD:[id number] #### [address] [address]Lqrtescd [Moles/Vol]116 mmol/JJqky08-963LawwkuoozLutheran HospitalComment on above:Order Comment: until sodium normalizedPerformed By: #### CD:[id number] #### [address] [address]LX8 [Moles/Vol]29 mmol/MCddwlx47-93ZlyitakfpLutheran HospitalComment on above:Order Comment: until sodium normalizedPerformed By: #### CD:[id number] #### [address] [address]Tsubugucea [Mass/Vol]1.21 mg/dLHigh0.44-1.03Lutheran HospitalComment on above:Order Comment: until sodium normalizedPerformed By: #### CD:[id number] #### [address] [address]Amyfqjr [Mass/Vol]81 mg/sBQxcqyv78-24OkobiebnuLutheran HospitalComment on above:Order Comment: until sodium normalizedPerformed By: #### CD:[id number] #### [address] [address]Lhcpkwoaq [Moles/Vol]4.0 mmol/LNormal3.4-4.8BTogus VA Medical Center SystemComment on above:Order Comment: until sodium normalizedPerformed By: #### CD:[id number] #### [address] [address]Crbuyd [Moles/Vol]151 mmol/CPril651-266MfyllojhvLutheran HospitalComment on above:Order Comment: until sodium normalizedPerformed By: #### CD:[id number] #### [address] [address]Fibd nitrogen [Mass/Vol]29 mg/dLHigh8-26Lutheran HospitalComment on above:Order Comment: until sodium normalizedPerformed By: #### CD:[id number] #### [address] [address]Vlpl nitrogen/Creatinine [Mass ratio]24.0 mg/pzLbnl70.0-20.0 Lutheran HospitalComment on above:Order Comment: until sodium normalizedPerformed By: #### CD:[id number] #### [address] [address]Kburq gap [Moles/Vol]9 mmol/LNormal7-17Lutheran HospitalComment on above:Performed By: #### UCI #### [address] [address]Dbefhab [Mass/Vol]9.4 mg/dLNormal8.5-10.3BSumma Health Akron CampusComment on above:Performed By: #### UCI #### [address] [address]Byounltg [Moles/Vol]116 mmol/BOayh14-399FryyxxqvrLutheran HospitalComment on above:Performed By: #### UCI #### [address] [address]CL4 [Moles/Vol]30 mmol/WWnghqz80-06YzpugtkdtLutheran HospitalComment on above:Performed By: #### UCI #### [address] [address]Jvocaeizev [Mass/Vol]1.31 mg/dLHigh0.44-1.03Lutheran HospitalComment on above:Performed By: #### UCI #### [address] [address]Yepmwjm [Mass/Vol]94 mg/gGAcbirq61-67KmozglhteLutheran HospitalComment on above:Performed By: #### UCI #### [address] [address]Cxhohwpqe [Moles/Vol]4.0 mmol/LNormal3.4-4.8BSumma Health Akron CampusComment on above:Performed By: #### UCI #### [address] [address]Vrqxmq [Moles/Vol]151 mmol/TOjae073-970OlffwbhztLutheran HospitalComment on above:Performed By: #### UCI #### [address] [address]Iieg nitrogen [Mass/Vol]31 mg/dLHigh8-26Lutheran HospitalComment on above:Performed By: #### UCI #### [address] [address]Jxei nitrogen/Creatinine [Mass ratio]23.7 mg/ewZfqb38.0-20.0 [facility] HospitalComment on above:Performed By: #### UCI #### [address] [address]Sffbd gap [Moles/Vol]9 mmol/LNormal7-17Lutheran HospitalComment on above:Order Comment: until sodium normalizedPerformed By: #### CD:[id number] #### [address] [address]Onagzrn [Mass/Vol]9.2 mg/dLNormal8.5-10.3BSumma Health Akron CampusComment on above:Order Comment: until sodium normalizedPerformed By: #### CD:[id number] #### [address] [address]Nbvgsckg [Moles/Vol]116 mmol/AVlth95-068JexfaixckLutheran HospitalComment on above:Order Comment: until sodium normalizedPerformed By: #### CD:[id number] #### [address] [address]WX8 [Moles/Vol]29 mmol/PRchaat35-99CnwtbxivyLutheran HospitalComment on above:Order Comment: until sodium normalizedPerformed By: #### CD:[id number] #### [address] [address]Nwrdggoxxn [Mass/Vol]1.22 mg/dLHigh0.44-1.03Lutheran HospitalComment on above:Order Comment: until sodium normalizedPerformed By: #### CD:[id number] #### [address] [address]Obttlru [Mass/Vol]145 mg/yBPuta68-57JniowyerfLutheran HospitalComment on above:Order Comment: until sodium normalizedPerformed By: #### CD:[id number] #### [address] [address]Bzuebctpr [Moles/Vol]3.9 mmol/LNormal3.4-4.8BSumma Health Akron CampusComment on above:Order Comment: until sodium normalizedPerformed By: #### CD:[id number] #### [address] [address]Ojdbls [Moles/Vol]150 mmol/LFsvc422-816GbqkqbdnnLutheran HospitalComment on above:Order Comment: until sodium normalizedPerformed By: #### CD:[id number] #### [address] [address]Xtjs nitrogen [Mass/Vol]30 mg/dLHigh8-26Lutheran HospitalComment on above:Order Comment: until sodium normalizedPerformed By: #### CD:[id number] #### [address] [address]Ppaq nitrogen/Creatinine [Mass ratio]24.6 mg/tfMiki49.0-20.0 [facility] HospitalComment on above:Order Comment: until sodium normalizedPerformed By: #### CD:[id number] #### [address] [address]Yvcvk gap [Moles/Vol]11 mmol/LNormal7-17Lutheran HospitalComment on above:Order Comment: until sodium normalizedPerformed By: #### CD:[id number] #### [address] [address]Ymebobm [Mass/Vol]9.5 mg/dLNormal8.5-10.3BTogus VA Medical Center SystemComment on above:Order Comment: until sodium normalizedPerformed By: #### CD:[id number] #### [address] [address]Hpvuecfe [Moles/Vol]117 mmol/EMuxq07-699AolxqoookLutheran HospitalComment on above:Order Comment: until sodium normalizedPerformed By: #### CD:[id number] #### [address] [address]AE7 [Moles/Vol]28 mmol/BMqqttj67-65CageoihrdLutheran HospitalComment on above:Order Comment: until sodium normalizedPerformed By: #### CD:[id number] #### [address] [address]Mojxglwrvp [Mass/Vol]1.14 mg/dLHigh0.44-1.03Lutheran HospitalComment on above:Order Comment: until sodium normalizedPerformed By: #### CD:[id number] #### [address] [address]Ouywybn [Mass/Vol]99 mg/oRRplozg24-03IxvklsmccLutheran HospitalComment on above:Order Comment: until sodium normalizedPerformed By: #### CD:[id number] #### [address] [address]Gdnzjduga [Moles/Vol]3.4 mmol/LNormal3.4-4.8BSumma Health Akron CampusComment on above:Order Comment: until sodium normalizedPerformed By: #### CD:[id number] #### [address] [place], [place] [address]Cmyjtr [Moles/Vol]153 mmol/XXsxr761-759NgjtqnpbyLutheran HospitalComment on above:Order Comment: until sodium normalizedPerformed By: #### CD:[id number] #### [facility] [address] [place], [place] [address]Ygho nitrogen [Mass/Vol]33 mg/dLHigh8-26Lutheran HospitalComment on above:Order Comment: until sodium normalizedPerformed By: #### CD:[id number] #### [facility] [address] [place], [place] [address]Crto nitrogen/Creatinine [Mass ratio]28.9 mg/oyUpzw68.0-20.0 Lutheran HospitalComment on above:Order Comment: until sodium normalizedPerformed By: #### CD:[id number] #### [address] [address]Qubiz Gas Arterialon 35-03-1648Csfz Excess Art6.0 mEq/LHigh -2.0-2.0Lutheran HospitalComment on above:Performed By: #### CD:[id number] #### [address] [address]AX Emigdio TestSatisfactoryTrumbull Regional Medical Center Comment on above:Performed By: #### CD:[id number] #### [facility] [address] [place] [address]OB Collection SiteRt RadTrumbull Regional Medical Center Comment on above:Performed By: #### CD:[id number] #### [facility] [address] [place] [address]Cuvlizcigxhcnhtmc Arterial1.0 % totalNormal0.0-2.0Lutheran HospitalComment on above:Performed By: #### CD:[id number] #### [facility] [address] [place] [address]Ah Totl Arterial9.3 g%Low12.0-16.0Lutheran HospitalComment on above:Performed By: #### CD:[id number] #### [address], [place] [address]AmJ1 Art97 % vqtdzOjssff66-716Nilmyclou [facility] Comment on above:Performed By: #### CD:[id number] #### [address], [place] [address]TKW0 (Bld) [Moles/Vol]32 mmol/HEuqp05-06MfaniffnqLutheran HospitalComment on above:Performed By: #### CD:[id number] #### [address] [address]Rhp Hb Arterial0.6 % totalNormal0.0-2.0Lutheran HospitalComment on above:Performed By: #### :[id number] #### [address] [address]D4 RctvJ8MqpmvvBbnsejdbsLutheran HospitalComment on above: Performed By: #### CD:[id number] #### [address], [place] [address]oGL4 Art55 drTrXxvz99-38ZdvchiwjtLutheran HospitalComment on above:Performed By: #### CD:[id number] #### [address] [address]jH Art7.46Azwgqk7.35-7.45Lutheran HospitalComment on above:Performed By: #### CD:[id number] #### [address] [address]gT9 Uim954 dwYqFxxi33-744XbeffwehqLutheran HospitalComment on above:Performed By: #### CD:[id number] #### [address] [address]WIF w/ Diffon 21-92-9914Dqdxaxxnwww distribution width (RBC) [Ratio]16.4 %High11.6-14.8BSumma Health Akron CampusComment on above: Performed By: #### BNP #### [address] [address]Hcycyaoteg (Bld) [Volume fraction]29.2 %Low36.0-46.0Lutheran HospitalComment on above:Performed By: #### BNP #### [address] [address]Qaqafwgtws (Bld) [Mass/Vol]9.7 g/dLLow12.0-16.0Lutheran HospitalComment on above:Performed By: #### BNP #### [address] [address]PGX (RBC) [Entitic mass]31.3 tyOtvbnd37.0-35.0Lutheran HospitalComment on above:Performed By: #### BNP #### [address] [address]IWWE94.2 %Diuzub25.0-37.0Lutheran HospitalComment on above:Performed By: #### BNP #### [address] [address]MCJ (RBC) [Entitic vol]94.1 iNPbanvd20.0-100.0Lutheran HospitalComment on above:Performed By: #### BNP #### [address] [address]Wokydtxl759 x10*3/ejKOejxvk209-728LdrunnvdnLutheran HospitalComment on above:Performed By: #### BNP #### [address] [address]Lfdwvjbu mean volume (Bld) [Entitic vol]8.5 fLNormal6.7-10.6 Lutheran HospitalComment on above:Performed By: #### BNP #### [address] [address]CFW6.10 x10*6/mcLLow3.80-5.20[facility] Comment on above:Performed By: #### BNP #### [address] [address]ZNA3.8 x10*3/mcLNormal4.5-11.0[facility] Comment on above:Performed By: #### BNP #### [address] [address]RWHri 09-02-5391Bhbnbzm [Mass/Vol]3.2 g/dLNormal3.2-4.9 Luther[facility] HospitalComment on above:Performed By: #### COMP #### [address] [address]Xehjuqc/Globulin [Mass ratio]1.1 {ratio}Normal1.1-2.2BSumma Health Akron CampusComment on above:Performed By: #### COMP #### [address] [address]Zmo Phos75 IU/SLrxnwy23-50OsptccxyfLutheran HospitalComment on above:Performed By: #### COMP #### [address], [place] [address]MMP [Catalytic activity/Vol]27 U/KLelrln58-99KrulyxmvqLutheran HospitalComment on above:Performed By: #### COMP #### [address] [address]Dskqv gap [Moles/Vol]10 mmol/LNormal7-17Lutheran HospitalComment on above:Performed By: #### COMP #### [address] [address]IMM [Catalytic activity/Vol]24 U/EKrvpwb23-69AvlowshzfLutheran HospitalComment on above:Performed By: #### COMP #### [address], [place] [address]Ebsa Total0.9 mg/dLNormal0.3-1.2BSumma Health [facility] Campus Comment on above:Performed By: #### COMP #### [address], [place] [address]Siyslff [Mass/Vol]9.4 mg/dLNormal8.5-10.3BSumma Health Akron CampusComment on above:Performed By: #### COMP #### [address], [place] [address] [Moles/Vol]117 mmol/PGhzl94-257RmslgxvzqLutheran HospitalComment on above:Performed By: #### COMP #### [address] [address]NZ8 [Moles/Vol]28 mmol/MVdyhhb91-26AdkxkdmbmLutheran HospitalComment on above:Performed By: #### COMP #### [address] [address]Silpsedrby [Mass/Vol]0.95 mg/dLNormal0.44-1.03Lutheran HospitalComment on above:Performed By: #### COMP #### [address] [address]Ohecybb [Mass/Vol]150 mg/tMFdfd21-08NytlrzvagLutheran HospitalComment on above:Performed By: #### COMP #### [address] [address]Slqjakauw [Moles/Vol]3.3 mmol/LLow3.4-4.8BSumma Health Akron CampusComment on above:Performed By: #### COMP #### [address] [address]Rsomqls [Mass/Vol]6.1 g/dLLow6.5-8.1BSumma Health Akron CampusComment on above:Performed By: #### COMP #### [address] [address]Lxqnto [Moles/Vol]152 mmol/JOlgg158-723ZobrycpefLutheran HospitalComment on above:Performed By: #### COMP #### [address] [address]Ejkq nitrogen [Mass/Vol]33 mg/dLHigh8-26Lutheran HospitalComment on above:Performed By: #### COMP #### [address] [address]Jnlf nitrogen/Creatinine [Mass ratio]34.7 mg/spGaxt61.0-20.0 Lutheran HospitalComment on above:Performed By: #### COMP #### [address] [address]Kqbd Autoon 66-10-6575Swfw Absolute0.0 x10*3/mcLNormal0.0-0.2 Lutheran HospitalComment on above:Performed By: #### .Automated Diff ####[address] [address] Basophils/100 WBC (Bld)0.6 %Normal0.0-1.5BSumma Health Akron CampusComment on above:Performed By: #### .Automated Diff ####[address] [address]Jvl Absolute0.1 x10*3/mcLNormal0.0-0.4 Luther[facility] HospitalComment on above:Performed By: #### .Automated Diff ####[address] [address] Eosinophils/100 WBC (Bld)2.5 %Normal0.0-5.4BSumma Health Akron CampusComment on above:Performed By: #### .Automated Diff ####[address] [address]Lkgpi Absolute0.8 x10*3/mcLLow1.0-4.8BSumma Health Akron CampusComment on above:Performed By: #### .Automated Diff ####[address] [address] Lymphocytes/100 WBC (Bld)14.5 %Low27.2-40.8BSumma Health Akron CampusComment on above:Performed By: #### .Automated Diff ####[address] [address]Cegj Absolute0.3 x10*3/mcLNormal0.1-1.1 Lutheran HospitalComment on above:Performed By: #### .Automated Diff ####[address] [address] Monocytes/100 WBC (Bld)5.8 %Normal3.7-11.9BSumma Health Akron CampusComment on above:Performed By: #### .Automated Diff ####[address] [address]Vfpzzk Absolute4.5 x10*3/mcLNormal1.8-7.7 Lutheran HospitalComment on above:Performed By: #### .Automated Diff ####[address] [address]Gonaai Auto76.6 %High47.2-70.8BSumma Health Akron CampusComment on above:Performed By: #### .Automated Diff ####[address] [address]Dyqmrh Acid, Initial w/Rflx 3 Houron 44-02-7248Rwlknl Acid, Initial1.4 mmol/LNormal0.5-2.0Lutheran HospitalComment on above:Performed By: #### CD:[id number] ####[address] [address]RLQU, PCRon 89-33-9932UKZ ONLY Result Called?No NormalLutheran HospitalComment on above:Performed By: #### BNP #### [address] [address]Yblfypxygrv Resistant Staph aurus(MRSA)Not detectedNormalNot DetectedLutheran HospitalComment on above:Result Comment: Mutations or polymorphisms in primer or probe binding regions may affect detectionof new or unknown MRSA variants resulting in a false negative. The [employer] Xpert MRSA Assay is a qualitative in vitro diagnostic test designed for rapid detectionof Methicillin-Resistant Staphylococcus aureus (MRSA) from nasal swabs [...] laboratory and clinical data available to the clinician.Performed By: #### BNP #### [address] [address]Hosnsyybdee 33-99-9856Mshdqrbgp [Mass/Vol]1.5 mg/dLLow1.7-2.4 Lutheran HospitalComment on above:Performed By: #### CD:[id number] #### [address] [address]Tfkvldabtdb 72-43-4956Oxnlqvfik [Mass/Vol]37.1 ng/mLNormal Lutheran HospitalComment on above:Performed By: #### COMP #### [address] [address]Cmtzn,Serumon 99-25-4810Qzpum Kuxyrhkmmr982 mOsm/eqOkaq284-776 Luther[facility] HospitalComment on above:Performed By: #### CD:[id number] #### [address] [address]AOzo 99-34-7993HKB Coag (PPP) [Relative time]1.1 {INR}Normal <=3.5BSumma Health Akron CampusComment on above:Result Comment: INR has no normal range. INR Therapeutic range is: 2.0-3.0 (AF, CVA, TIAs, DVT prophylaxis, acute DVT) 2.5-3.5 ([facility], recurrent thrombosis/emboli)Performed By: #### CD:[id number] #### [address] [address]DM Coag (PPP) [Time]11.5 sNormal9.3-11.9BSumma Health Akron CampusComment on above:Performed By: #### CD:[id number] #### [address] [address]HUWov 83-28-4153dZXL Coag (Bld) [Time]29.1 vXsoofq40.6-29.2 Luther[facility] HospitalComment on above:Performed By: #### COMP #### [address] [address]Iezsszrlrwpl 65-18-6529Qjlufazhk [Mass/Vol]2.8 mg/dLNormal 2.5-4.6BSumma Health Akron CampusComment on above:Performed By: #### CD:[id number] #### [address] [address]HPFte 30-18-5227CNV Qn0.97 m[IU]/LNormal0.45-5.33Lutheran HospitalComment on above:Result Comment: Reference Ranges for individuals from to 18 years of age were obtained from The Inna Asencio Handbook (20 ed) published by [facility]. Reference Ranges for Females: Females, 1st Trimester 0.05 ? 3.7 uIU/mL Females, 2nd Trimester 0.31 ? 4.35 uIU/mL Females, 3rd Trimester 0.41 ? 5.18 uIU/mLPerformed By: #### CD:[id number] #### [address] [address]Xyupipou-Ruu 10-36-7755Jblmrtxo I.cardiac [Mass/Vol]ng/mLNormal 0.00-0.03Lutheran HospitalComment on above:Result Comment: An increased Troponin-I value, in the absence of myocardial ischemia, may indicate other etiologies of cardiac damage.Performed By: #### CD:[id number] #### [address] [address]L Lyteson 35-88-9733Qlkiwvpg [Moles/Vol]175 mmol/LNormal Luther[facility] HospitalComment on above:Performed By: #### COMP #### [address] [address]Vifvfujmb [Moles/Vol]62.0 mmol/LNormalLutheran HospitalComment on above:Performed By: #### COMP #### [address] [address]Fsbdvo [Moles/Vol]150 mmol/LNormalLutheran HospitalComment on above:Performed By: #### COMP #### [address] [address]J Osmolon 30-39-9306Rooiy Mjlzdrshdx114 mOsm/kg E4QOqwnct 50-1200Lutheran HospitalComment on above:Order Comment: Please obtain urine and serum testing together. Place [place], drain bladder, then obtain sample.Performed By: #### BNP #### [address] [address]JL w Culture if Indon 14-52-1320Rxbki (U)YellowNormChildren's Hospital for RehabilitationComment on above:Performed By: #### UCI #### [address] [address]Yaeqyxs Ql (U)10 mg/dLAbnormalNegAshtabula County Medical CenterComment on above:Performed By: #### UCI #### [address], [place] [address]KS BloodNegativeNormmdNegAshtabula County Medical Center Comment on above:Performed By: #### UCI #### [address], [place] [address]SD ClarityTurbidNormChildren's Hospital for RehabilitationComment on above:Performed By: #### UCI #### [address], [place] [address]WO GlucoseNormalNocarolinaeast medical centerNegAshtabula County Medical Center Comment on above:Performed By: #### UCI #### [address], [place] [address]IS Leukocyte Hyuqjsqt433CsfzvkvkWkckmoblFhooewkrg Valley Health SystemComment on above:Performed By: #### UCI #### [address] [place] [address]OR NitriteNegativeNormalNegAshtabula County Medical Center Comment on above:Performed By: #### UCI #### [address] [address]ES pH5.7Jgzjws5.5 - 7.8BSumma Health Akron CampusComment on above:Performed By: #### UCI #### [address] [address]LW Qapchgc61 mg/dLAbnormalNegativeLutheran HospitalComment on above:Performed By: #### UCI #### [address] [address]XO SourceCatheterNormalLutheran HospitalComment on above:Performed By: #### UCI #### [address] [address]DL Spec Grav1.294Traejx4.003-1.035Lutheran HospitalComment on above:Performed By: #### UCI #### [address] [address]XH UrobilinogenNormalNormal0.2 - 1.0Lutheran HospitalComment on above:Performed By: #### UCI #### [address] [address]Xpdlgtznyegd (U) [Mass/Vol]NegativeNormalNegAshtabula County Medical CenterComment on above:Performed By: #### UCI #### [address] [address]IW Chest 1 Viewon 35-95-8096CX Chest 1 ViewEXAM: XR Chest 1 View HISTORY: Shortness of [...] pleural effusion is seen. The visualized lungs otherwiseappear clear. No obvious pneumothorax is seen. IMPRESSION: Limited evaluation of the left lower lung. Otherwise no radiographic evidence for acute cardiopulmonary disease. Final Dictated by: Dary Duggan MD Dictated DT/TM: 10/09/2022 6:54 pm Signed by: Dary Duggan MD Signed (Electronic Signature): 10/09/2022 7:00 pm (If Report Is Signed, Electronically Signed in Other Vendor System)Normal Luther[facility] HospitalBasic Metabolic Panelon 22-79-7826Awehp gap [Moles/Vol]10 mmol/L9 - 17 mmol/LBON [employer] HEALTHCalcium [Mass/Vol]10.3 mg/dL8.6 - 10.4 mg/dLBON SECTRIRIGA HEALTHChloride [Moles/Vol]116 mmol/LHigh 98 - 107 mmol/LBON CovocativeCO2 [Moles/Vol]29 mmol/L20 - 31 mmol/LBON CovocativeCreatinine [Mass/Vol]0.94 mg/dLHigh0.50 - 0.90 mg/dLBON CovocativeGFR/1.73 sq M.predicted MDRD (S/P/Bld) [Vol rate/Area]- [facility] HOSPITALAdmittedlyComment on above: These results are not intended [...] therapy that affects renal tubular secretion. Glucose [Mass/Vol]144 mg/dRQjeo57 - 99 mg/dLBON Covocative Interpretation and review of laboratory resultsAbnormalBON [facility] - GILBERTAdmittedly Potassium [Moles/Vol]3.3 mmol/LLow3.7 - 5.3 mmol/LBON CovocativeSodium [Moles/Vol]155 mmol/AXcbp855 - 144 mmol/LBON CovocativeUrea nitrogen [Mass/Vol]35 mg/dLHigh8 - 23 mg/dLBON [facility] - GILBERTAdmittedlyUrea nitrogen/Creatinine (Bld) [Mass ratio]29Izfz7 - 20BON [facility]– MILWAUKEEAnion gap [Moles/Vol]10 mmol/L9 - 17 mmol/LBON [facility]GL[facility]WO[facility] HEALTHCalcium [Mass/Vol]10.5 mg/dLHigh8.6 - 10.4 mg/dLBON [facility] Chloride [Moles/Vol]116 mmol/LHigh98 - 107 mmol/LBON [facility] HOSPITALCO2 [Moles/Vol]29 mmol/L20 - 31 mmol/LBON [facility] HOSPITALCreatinine [Mass/Vol] 0.87 mg/dL0.50 - 0.90 mg/dLBON [facility] HOSPITALGFR/1.73 sq M.predicted MDRD (S/P/Bld) [Vol rate/Area]- [facility]OSPITALComment on above: These results are not intended [...] therapy that affects renal tubular secretion. Glucose [Mass/Vol]136 mg/wJExkk11 - 99 mg/dLBON [facility] Interpretation and review of laboratory resultsAbnormalBON [facility] Potassium [Moles/Vol]3.4 mmol/LLow3.7 - 5.3 mmol/LBON [facility] HOSPITALSodium [Moles/Vol]155 mmol/UKswu012 - 144 mmol/LBON [facility] HOSPITALUrea nitrogen [Mass/Vol]35 mg/dLHigh8 - 23 mg/dLBON [facility] HOSPITALUrea nitrogen/Creatinine (Bld) [Mass ratio]72Rfnu3 - 20BON [facility] - SIOUX FALLSAnion gap [Moles/Vol]11 mmol/L9 - 17 mmol/LBON [facility] HOSPITALCalcium [Mass/Vol]10.8 mg/dLHigh8.6 - 10.4 mg/dLBON [facility] Chloride [Moles/Vol]113 mmol/LHigh98 - 107 mmol/LBON [facility] HOSPITALCO2 [Moles/Vol]28 mmol/L20 - 31 mmol/LBON [facility]ITALY HEALTHCreatinine [Mass/Vol] 0.94 mg/dLHigh0.50 - 0.90 mg/dLBON [facility] HEALTHGFR/1.73 sq M.predicted MDRD (S/P/Bld) [Vol rate/Area]- PINFBINOVA FAIR OAKS HOSPITALComment on above: These results are not intended [...] therapy that affects renal tubular secretion. Glucose [Mass/Vol]129 mg/tPOfzb46 - 99 mg/dLBON [facility] Interpretation and review of laboratory resultsAbnormalBON [facility] Potassium [Moles/Vol]3.5 mmol/LLow3.7 - 5.3 mmol/LBON [facility] HOSPITALSodium [Moles/Vol]152 mmol/FGmjc028 - 144 mmol/LBON [facility]GL[facility] HEALTHUrea nitrogen [Mass/Vol]38 mg/dLHigh8 - 23 mg/dLBON [facility] HOSPITALUrea nitrogen/Creatinine (Bld) [Mass ratio]63Wxkw6 - 20BON [facility] HOSPITALBON [facility] HEALTHAnion gap [Moles/Vol]9 mmol/L9 - 17 mmol/LBON SECKINDR[facility]OSPITAL LIMACalcium [Mass/Vol]10.7 mg/dLHigh8.6 - 10.4 mg/dLBON [facility] Chloride [Moles/Vol]118 mmol/LHigh98 - 107 mmol/LBON [facility] HOSPITALCO2 [Moles/Vol]30 mmol/L20 - 31 mmol/LBON [facility] HEALTHCreatinine [Mass/Vol] 0.97 mg/dLHigh0.50 - 0.90 mg/dLBON [facility]GL[facility] HEALTHGFR/1.73 sq M.predicted MDRD (S/P/Bld) [Vol rate/Area]- PINRUSSELL COUNTY MEDICAL CENTERComment on above: These results are not intended [...] therapy that affects renal tubular secretion. Glucose [Mass/Vol]78 mg/dL70 - 99 mg/dLBON [facility] HOSPITALInterpretation and review of laboratory resultsAbnormalBON [facility] HOSPITALPotassium [Moles/Vol]4.1 mmol/L3.7 - 5.3 mmol/LBON [facility]OS[facility]ITALSodium [Moles/Vol] 157 mmol/NEkoh994 - 144 mmol/LBON [facility] HOSPITALUrea nitrogen [Mass/Vol]37 mg/dLHigh8 - 23 mg/dLBON MER[facility] ST[facility] HOSPITALUrea nitrogen/Creatinine (Bld) [Mass ratio]98Rgna7 - 20[facility]X FALLSBasic Metabolic Profon [id number] gap [Moles/Vol]10 mmol/LNormal9-17Fire[facility] Medical CenterComment on above:Performed By: #### LIPR #### [address] [address] [employer]: Jersey Dahl MD #### MARLIN, CP #### [address] [place] [address] [employer]: Kayley Doll MDBUN/CRE [id number] Regional Medical Center Comment on above:Performed By: #### LIPR #### [address] [address] [employer]: Jersey Dahl MD #### MARLIN, CP #### [address] [place] [address] [employer] Winder: DAVIS Greenealcium [Mass/Vol]10.5 mg/dLHigh8.6-10.4Fire[facility] Medical CenterComment on above:Performed By: #### LIPR #### [address] [address] [employer]: Jersey Dahl MD #### CDP, CP #### [address] [place] [address] [employer] W[employer]: DAVIS Greenehloride [Moles/Vol]116 mmol/RTitt09-745BlvdpFirelands Regional Medical CenterComment on above:Performed By: #### LIPR #### [address] [address] [employer]: Jersey Dahl MD #### CDP, CP #### [address] [place] [address] [employer]: Kayley Doll MDCO2 [Moles/Vol]29 mmol/MQvjljn61-68LynmwFirelands Regional Medical CenterComment on above:Performed By: #### LIPR #### [address] [address] [employer]: Jersey Dahl MD #### CDP, CP #### [address] [place] [address] [employer] W[employer]: DAVIS Greenereatinine [Mass/Vol]0.87 mg/dLNormal0.50-0.90 [facility] CenterComment on above:Performed By: #### LIPR #### [address] [address] [employer]: Jersey Dahl MD #### CDP, CP #### [address] [place] [address] [employer]: Kayley Doll MDGFR/1.73 sq M.predicted among non-blacks MDRD (S/P/Bld) [Vol rate/Area]mL/min/{1.73_m2}Normal>60Fire[facility] Medical CenterComment on above:Result Comment: These results are not intended for [...] or following therapy that affects renal tubular secretion.Performed By: #### LIPR #### [address] [address] [employer]: Jersey Dahl MD #### CDP, CP #### [address] [place], [place] [phone] [employer]: Kayley Doll MDGlucose [Mass/Vol]136 mg/kLQtyg13-36TlkgcTriHealth McCullough-Hyde Memorial HospitalComment on above:Performed By: #### LIPR #### [address] [address] [employer]: Jersey Dahl MD #### CDP, CP #### [address] [place], [place] [phone] [employer]: Tashi Greenessium [Moles/Vol]3.4 mmol/LLow3.7-5.3Mst. vincent hospitaly Hartford HospitalComment on above:Performed By: #### LIPR #### [address] [address] [employer] Winder: Jersey Dahl MD #### CDP, CP #### [address] [place], [place] 8[address]83 [employer] Winder: LIZ Greeneodium [Moles/Vol]155 mmol/GAqit419-883Ejrgf Hartford HospitalComment on above:Performed By: #### LIPR #### [address] [address] [employer] Winder: Jersey Dahl MD #### CDP, CP #### [address] [place] [address] [employer] Winder: Kayley Doll MDUrea nitrogen [Mass/Vol]35 mg/dLHigh8-23[facility] CenterComment on above:Performed By: #### LIPR #### [address] [place] [address] [employer] Winder: Jersey Dahl MD #### CDP, CP #### [facility] [address] [place] [address] [address] [place], [place] [phone] [employer] Winder: Kayley Doll MDAnion gap [Moles/Vol]11 mmol/LNormal9-17[facility] CenterComment on above:Performed By: #### LIPR #### [address] [address] [employer] Winder: Jersey Dahl MD #### CDP, CP #### [address] [place], [place] [phone] [employer] Winder: Kayley Doll MDBUN/CRE Qnyvs40Liql9-75KexjhFirelands Regional Medical Center Comment on above:Performed By: #### LIPR #### [address] [address] [employer] Winder: Jersey Dahl MD #### CDP, CP #### [address] [place] [address] De [employer] Winder: DAVIS Greenealcium [Mass/Vol]10.8 mg/dLHigh8.6-10.4[facility] Medical CenterComment on above:Performed By: #### LIPR #### [address] [address] [employer] Winder: Jersey Dahl MD #### CDP, CP #### [address] [place] [address] De [employer] Winder: DAVIS Greenehloride [Moles/Vol]113 mmol/XXrop55-106WfnxsFirelands Regional Medical CenterComment on above:Performed By: #### LIPR #### [address] [address] [employer] Winder: Jersey Dahl MD #### CDP, CP #### [address] [place], [place] 7101283 De [employer] Winder: DAVIS GreeneO2 [Moles/Vol]28 mmol/PLxbjon03-77DnunbFirelands Regional Medical CenterComtrinity health [facility] on above:Performed By: #### LIPR #### [address] [address] [employer] Winder: Jersey Dahl MD #### CDP, CP #### [address] [place], [place] 5908983 De [employer] Winder: DAVIS Greenereatinine [Mass/Vol]0.94 mg/dLHigh0.50-0.90[facility] CenterComtrinity health oakland hospital on above:Performed By: #### LIPR #### [address] [address] [employer] Winder: Jersey Dahl MD #### CDP, CP #### [address] [place], [place] [phone] De [employer] Winder: Kayley Doll MDGFR/1.73 sq M.predicted among non-blacks MDRD (S/P/Bld) [Vol rate/Area]mL/min/{1.73_m2}Normal>60[facility] Medical CenterComment on above:Result Comment: These results are not intended for [...] or following therapy that affects renal tubular secretion.Performed By: #### LIPR #### [address] [place] [address] De [employer] Winder: Jersey Dahl MD #### CDP, CP #### [address] [place] [phone] De [employer] Winder: Kayley Doll MDGlucose [Mass/Vol]129 mg/zQLcfd61-23WpgauTriHealth McCullough-Hyde Memorial HospitalComment on above:Performed By: #### LIPR #### [address] [address] [employer] Winder: Jersey Dahl MD #### CDP, CP #### [address] [place] [phone] De [employer] Winder: MOHAN Greeneotassium [Moles/Vol]3.5 mmol/LLow3.7-5.3Mst. vincent hospitaly [facility]angle HospitalComment on above:Performed By: #### LIPR #### [address] [address] [employer] Winder: Jersey Dahl MD #### CDP, CP #### [address] [place] [phone] De [employer] Winder: LIZ Greeneodium [Moles/Vol]152 mmol/PGdbm362-875HejjkFirelands Regional Medical CenterComment on above:Performed By: #### LIPR #### [address] [address] [employer] Winder: Jersey Dahl MD #### CDP, CP #### [address] [place] [phone] De [employer] Winder: Kayley Doll MDUrea nitrogen [Mass/Vol]38 mg/dLHigh8-23[facility] Medical CenterComment on above:Performed By: #### LIPR #### [address] [address] [employer] Winder: Jersey Dahl MD #### CDP, CP #### [address] [place] [address] De [employer] Element Winder: Kayley Doll MDAnion gap [Moles/Vol]9 mmol/LNormal9-17[facility] Medical CenterComment on above:Performed By: #### LIPR #### [address] [address] [employer] Winder: Jersey Dahl MD #### CDP, CP #### [address] [place], [place] 1908183 De [employer] Winder: Kayley Doll MDBUN/CRE Ypkoa96Xstk4-19QrfbwFirelands Regional Medical Center Comment on above:Performed By: #### LIPR #### [address] [address] [employer] Winder: Jersey Dahl MD #### CDP, CP #### [address] [place] [address] [employer] Winder: Kayley Doll MDCalcium [Mass/Vol]10.7 mg/dLHigh8.6-10.4Fire[facility] Medical CenterComment on above:Performed By: #### LIPR #### [address] [address] De [employer] Winder: Jersey Dahl MD #### CDP, CP #### [address] [place] [address] [employer] Winder: Kayley Doll MDChloride [Moles/Vol]118 mmol/UErcj65-929IlooyFirelands Regional Medical CenterComment on above:Performed By: #### LIPR #### [address] [address] De [employer] Winder: Jersey Dahl MD #### CDP, CP #### [address] [place], [place] 2999983 De [employer] Winder: DAVIS GreeneO2 [Moles/Vol]30 mmol/KEzrdha25-26VykdoFirelands Regional Medical CenterComment on above:Performed By: #### LIPR #### [facility] CantonOuterstuff [address] [place] [address] De [employer] Winder: Jersey Dahl MD #### CDP, CP #### [address] [place] [address] De Icer Element Winder: DAVIS Greenereatinine [Mass/Vol]0.97 mg/dLHigh0.50-0.90Fire[facility] Medical CenterComment on above:Performed By: #### LIPR #### [address] [place] [address] De [employer] Winder: Jersey Dahl MD #### CDP, CP #### [address] [place] [address] De [employer] Winder: Kayley Doll MDGFR/1.73 sq M.predicted among non-blacks MDRD (S/P/Bld) [Vol rate/Area]mL/min/{1.73_m2}Normal>60[facility] Medical CenterComment on above:Result Comment: These results are not intended for [...] or following therapy that affects renal tubular secretion.Performed By: #### LIPR #### [facility] [employer] [address] [place] [address] De [employer] Winder: Jersey Dahl MD #### CDP, CP #### [address] [place] [address] De Icer Element Winder: Kayley Doll MDGlucose [Mass/Vol]78 mg/bGJzjrtl43-09IzgatTriHealth McCullough-Hyde Memorial HospitalComment on above:Performed By: #### LIPR #### [address] [place] [address] De I[employer] Element Winder: Jersey Dahl MD #### CDP, CP #### [address] [place], [place] [phone] De [employer]cer Element Winder: MOHAN Greeneotassium [Moles/Vol]4.1 mmol/LNormal3.7-5.3Mst. vincent hospitaly Hartford HospitalComment on above:Performed By: #### LIPR #### [address] [address] De I[employer] Winder: Jersey Dahl MD #### CDP, CP #### [address] [place], [place] 8710483 De [employer] Winder: LIZ Greeneodium [Moles/Vol]157 mmol/FBwrv231-394RmxqnFirelands Regional Medical CenterComment on above:Performed By: #### LIPR #### [address] [address] De I[employer] Winder: Jersey Dahl MD #### CDP, CP #### [address] [place], [place] 5121483 De [employer] Winder: Kayley Doll MDUrea nitrogen [Mass/Vol]37 mg/dLHigh8-23[facility] Medical CenterComment on above:Performed By: #### LIPR #### [address] [address] [employer] Winder: Jersey Dahl MD #### CDP, CP #### [address] [place], [place] 6862783 De [employer] Winder: Kayley Doll [facility] with Auto Differentialon [id number] Eos #0.06[facility] SYSTEMAbsolute Immature Granulocyte0.03[facility] HEALTH SYSTEMAbsolute Lymph #0.68LowBON SECOURS MERCY HEALTHAbsolute [place] #0.32 [facility] HEALTHBasophils (Bld) [#/Vol]0.03 10*3/uLBON [facility]OURS [facility] HEALTHBasophils/100 WBC (Bld)0 %0 - 2 %[facility] SYSTEMEosinophils/100 WBC (Bld)1 %1 - 4 %[facility] HOSPITALHematocrit (Bld) [Volume fraction] 35.0 %Low36.3 - 47.1 %[facility]MM[facility]ULATE HOSPITALHemoglobin (Bld) [Mass/Vol]11.0 g/dLLow11.9 - 15.1 g/dLBON SECKINDRED HOSPITAL LIMAImmature granulocytes/100 WBC (Bld)0 %0[facility] IMMACULATE HOSPITALInterpretation and review of laboratory results AbnormalBON SECKINDRED HOSPITAL LIMALymphocytes/100 WBC (Bld)10 %Low24 - 43 %[facility] ALLIANCEH (RBC) [Entitic mass]30.9 pg25.2 - 33.5 pgBON SECLANCASTER MUNICIPAL HOSPITALHC (RBC) [Mass/Vol]31.4 g/dL28.4 - 34.8 g/dLBON SECLANCASTER MUNICIPAL HOSPITALV (RBC) [Entitic vol]98.3 fL82.6 - 102.9 fLBON SECOURS MARY IMMACULATE HOSPITAL Monocytes/100 WBC (Bld)5 %3 - 12 %[facility] IMM[facility]ULATE HOSPITALNRBC Automated0.00.0 per 100 WBCBANNER [facility] SECKINDRED HOSPITAL LIMAPlatelet distribution width (Bld) [Ratio]15.5 %High11.8 - 14.4 %[facility] SECGLENWOOD REGIONAL MEDICAL [facility]ENTER HEALTHPlatelet mean volume (Bld) [Entitic vol]10.2 fL8.1 - 13.5 fLBANNER BAYWOOD MEDICAL CENTER SECGLENWOOD REGIONAL MEDICAL [facility]ENTER HEALTHPlatelets (Bld) [#/Vol]203 10*3/uLBON SECGLENWOOD REGIONAL MEDICAL CENTER HEALTHRBC (Bld) [#/Vol]3.56 10*6/uLLow3.95 - 5.11 m/uL [facility] IMMAC[facility]ATE HOSPITALSegmented neutrophils/100 WBC (Bld)84 %High36 - 65 %[facility] SECGLENWOOD REG[facility]AL [facility] HEALTHSegs Absolute5.86[facility] SECGLENWOOD [facility] HEALTHWBC (Bld) [#/Vol] 7.0 10*3/uLBON [facility] with Diffon [id number]. Basophil0.03 k/uLNormal0.00-0.20[facility] HospitalComment on above:Performed By: #### LIPR #### [address] [place] [address] [employer] Winder: Jersey Dahl MD #### CDP, CP #### [address] [place], [place] [phone] [employer] Winder: Leonard Greene.Imm.Granulocyte0.03 k/uLNormal0.00-0.30Fire[facility] Medical CenterComment on above:Performed By: #### LIPR #### [address] [address] De I[employer] Winder: Jersey Dahl MD #### CDP, CP #### [address] [place] [phone] De Icer Element Winder: Leonard Greene.Neutrophil (Seg)5.86 k/uLNormal1.50-8.10Fire[facility] Medical CenterComment on above:Performed By: #### LIPR #### [address] [address] De [employer] Winder: Jersey Dahl MD #### CDP, CP #### [address] [place] [address] De Icer Element Winder: Kayley Doll MDBasophils/100 WBC (Bld)0 %Normal0-2MKettering Health Dayton HospitalComment on above:Performed By: #### LIPR #### [address] [address] [employer] Winder: Jersey Dahl MD #### CDP, CP #### [address] [place] [phone] De [employer] Element Winder: Kayley Doll MDEosinophils (Bld) [#/Vol]0.06 10*3/uLNormal 0.00-0.44Fire[facility] Medical CenterComment on above:Performed By: #### LIPR #### [address] [address] [employer] Winder: Jersey Dahl MD #### CDP, CP #### [address] [place], [place] 1488683 De Icer Element Winder: Kayley Doll MDEosinophils/100 WBC (Bld)1 %Normal1-4Fire[facility] Medical CenterComment on above:Performed By: #### LIPR #### [address] [address] De I[employer] Winder: Jersey Dahl MD #### CDP, CP #### [address] [place] [phone] De [employer] Winder: Kayley Doll MDErythrocyte distribution width (RBC) [Ratio]15.5 % High11.8-14.4Fire[facility] Medical CenterComment on above:Performed By: #### LIPR #### [address] [address] De [employer] Winder: Jersey Dahl MD #### CDP, CP #### [address] [place] [address] De Icer Element Winder: Kayley Doll MDHematocrit (Bld) [Volume fraction]35.0 %Low 36.3-47.1MTriHealth McCullough-Hyde Memorial HospitalComment on above:Performed By: #### LIPR #### [address] [address] De [employer] Winder: Jersey Dahl MD #### CDP, CP #### [address] [place] [phone] De [employer] Winder: Kayley Doll MDHemoglobin (Bld) [Mass/Vol]11.0 g/dLLow11.9-15.1 [facility] on above:Performed By: #### LIPR #### [address] [address] De I[employer] Element Winder: Jersey Dahl MD #### CDP, CP #### [address] [place] [address] De [employer] Winder: Kayley Doll MDImmature granulocytes/100 WBC (Bld)0 %Hwgnxq[address]Rqxq[address] [place] [address] on above:Performed By: #### LIPR #### [address] [address] De Icer Element Winder: Jersey Dahl MD #### CDP, CP #### [address] [place] [phone] De Icer Element Winder: Kayley Doll MDLymphocytes (Bld) [#/Vol]0.68 10*3/uLLow1.10-3.70 [facility] on above:Performed By: #### LIPR #### [address] [address] De I[employer] Element Winder: Jersey Dahl MD #### CDP, CP #### [address] [place] [phone] De Icer Element Winder: Kayley Doll MDLymphocytes/100 WBC (Bld)10 %Rsh58-37RhmhtGlenbeigh Hospital on above:Performed By: #### LIPR #### [address] [address] De I[employer] Element Winder: Jersey Dahl MD #### CDP, CP #### [address] [place] [address] De Icer Element Winder: GISSEL GreeneCH (RBC) [Entitic mass]30.9 qrOagdkt84.2-33.5 [facility] Medical CenterComment on above:Performed By: #### LIPR #### [address] [address] De I[employer] Element Winder: Jersey Dahl MD #### CDP, CP #### [address] [place] [phone] De Icer Element Winder: GISSEL GreeneCHC (RBC) [Mass/Vol]31.4 g/iMGfrbhe23.4-34.8Fire[facility] Medical CenterComment on above:Performed By: #### LIPR #### [address] [address] De I[employer] Winder: Jersey Dahl MD #### MARLIN, CP #### [address] [place] [phone] De [employer] Winder: GISSEL GreeneCV (RBC) [Entitic vol]98.3 cMPmzzcy45.6-102.9 [facility] CenterComment on above:Performed By: #### LIPR #### [address] [address] De Icer Element Winder: Jersey Dahl MD #### CDP, CP #### [address] [place] [phone] De Icer Element Winder: GISSEL Greeneonocytes (Bld) [#/Vol]0.32 10*3/uLNormal0.10-1.20 [facility] CenterComtrinity health oak[facility] hospital on above:Performed By: #### LIPR #### [address] [address] De I[employer] Winder: Jersey Dahl MD #### CDP, CP #### [address] [place] [address] De Icer Element Winder: GISSEL Greeneonocytes/100 WBC (Bld)5 %Normal3-12[facility] Medical CenterComment on above:Performed By: #### LIPR #### [address] [address] De I[employer] Winder: Jersey Dahl MD #### CDP, CP #### [address] [place] [phone] De [employer] Winder: Kayley Doll MDNeutrophil (Seg)84 %Bang06-43AiygoFirelands Regional Medical Center Comment on above:Performed By: #### LIPR #### [address] [address] De I[employer] Winder: Jersey Dahl MD #### CDP, CP #### [address] [place] [address] De [employer] Element Winder: Kayley Doll MDNRBC Automated0.0 per 100 WBCNormal0.0Fire[facility] Medical CenterComment on above:Performed By: #### LIPR #### [address] [address] De [employer] Winder: Jersey Dahl MD #### CDP, CP #### [address] [place] [phone] De [employer] Element Winder: Trevon Greene mean volume (Bld) [Entitic vol]10.2 fL Normal8.1-13.5Fire[facility] Medical CenterComment on above:Performed By: #### LIPR #### [address] [address] De I[employer] Element Winder: Jersey Dahl MD #### CDP, CP #### [address] [place] [phone] De Icer Element Winder: Elisabeth Greene (Bld) [#/Vol]203 10*3/dFUebmyy557-250 [facility] CenterComment on above:Performed By: #### LIPR #### [address] [address] De I[employer] Winder: Jersey Dahl MD #### CDP, CP #### [address] [place] [phone] De Icer Element Winder: MARTA Greene (Bld) [#/Vol]3.56 10*6/uLLow3.95-5.11[facility] Medical CenterComment on above:Performed By: #### LIPR #### [address] [address] De Icer Element Winder: Jersey Dahl MD #### CDP, CP #### [address] [place] [address] De Icer Element Winder: COLTEN Greene (Bld) [#/Vol]7.0 10*3/uLNormal3.5-11.3Mst. vincent hospitaly Hartford HospitalComment on above:Performed By: #### LIPR #### [address] [address] De Icer Element Winder: Jersey Dahl MD #### CDP, CP #### [address] [place] [address] De Icer Element Winder: Kayley Doll MDCT HEAD WO CONTRASTon [id number] HEAD WO CONTRASTEXAMINATION: CT OF THE HEAD WITHOUT CONTRAST 10/08/2022 [...] Signed by: Jay Horn MD 10/08/22 Final resultNormalFirelands Regional Medical CenterCT Head WO Contraston [id number] acute intracranial abnormality. [facility] CONSOLIDATEDEXAMINATION: CT OF THE HEAD WITHOUT CONTRAST 10/08/2022 [...] visualized skull or soft tissues. [facility] Jay Correa MD - 10/08/2022 EXAMINATION: CT OF THE [...] soft tissues. IMPRESSION: No acute intracranial abnormality. [facility] [email or web address] Phone: radiology Study observation (narrative)[facility] [email or web address] Phone: ct Head WO ContrastOrdered By: Jay Horn on [id number] [facility] - GILBERTCatchFree Phone: Comj Metabolic Profon [id number] [Mass/Vol]4.4 g/dLNormal3.5-5.2[facility] HospitalComment on above:Performed By: #### LIPR #### [employer] [address] [place], [place] [id number] De Icer Element Winder: Jersey Dahl MD #### CDP, CP #### [address] [place] [address] De Icer Element Winder: Kayley Doll MDAlbumin/Glob Ratio1.6Igndgu8.0-2.5Fire[facility] Medical CenterComment on above:Performed By: #### LIPR #### [employer] [address] [place] [address] De Icer Element Winder: Jersey Dahl MD #### CDP, CP #### [address] [place] [address] De [employer]cer Element Winder: Dali Greenekaline Fvgq283 U/BFiid04-178TidplFirelands Regional Medical CenterComment on above:Performed By: #### LIPR #### [address] [address] De Icer Element Winder: Jersey Dahl MD #### CDP, CP #### [address] [place], [place] 1985783 De [employer]cer [employer] Winder: Kayley Doll MDALT [Catalytic activity/Vol]26 U/LNormal5-33[facility] HospitalComment on above:Performed By: #### LIPR #### [address] [address] De Icer Element Winder: Jersey Dahl MD #### CDP, CP #### [address] [place] [phone] De Icer Element Winder: Kayley Doll MDAnion gap [Moles/Vol]12 mmol/LNormal9-17[facility] HospitalComment on above:Performed By: #### LIPR #### [address] [address] De Icer Element Winder: Jersey Dahl MD #### CDP, CP #### [address] [place] [phone] De Icer Element Winder: Kayley Doll MDAST [Catalytic activity/Vol]23 U/LNormal<32[facility] Hospitalcy [facility] HospitalComment on above:Performed By: #### LIPR #### [address] [address] De Icer Element Winder: Jersey Dahl MD #### CDP, CP #### [address] [place] [phone] De Icer Element Winder: Kayley Doll MDBilirubin [Mass/Vol]0.9 mg/dLNormal0.3-1.2[facility] Spangle HospitalComment on above:Performed By: #### LIPR #### [address] [address] De Icer Element Winder: Jersey Dahl MD #### CDP, CP #### [address] [place], [place] 265[address] De [employer] Element Winder: Kayley Doll MDBUN/CRE Qrbup38Sfqb7-80QhgewFirelands Regional Medical Center Comment on above:Performed By: #### LIPR #### [address] [address] De I[employer] Element Winder: Jersey Dahl MD #### CDP, CP #### [address] [place] [address] De Icer Element Winder: DAVIS Greenealcium [Mass/Vol]11.3 mg/dLHigh8.6-10.4[facility] Medical CenterComment on above:Performed By: #### LIPR #### [address] [address] De I[employer] Winder: Jersey Dahl MD #### CDP, CP #### [address] [place] [address] De [employer] Element Winder: DAVIS Greenehloride [Moles/Vol]117 mmol/XPhvn19-892Gbapx Tiffin HospitalComment on above:Performed By: #### LIPR #### [address] [address] [employer] Winder: Jersey Dahl MD #### CDP, CP #### [address] [place] [address] De [employer]cer Element Winder: Kayley Doll MDCO2 [Moles/Vol]29 mmol/IMexhoa46-93NlrwhFirelands Regional Medical CenterComment on above:Performed By: #### LIPR #### [address] [address] De I[employer] Element Winder: Jersey Dahl MD #### CDP, CP #### [address] [place], [place] [phone] De [employer]cer Element Winder: DAVIS Greenereatinine [Mass/Vol]0.97 mg/dLHigh0.50-0.90[facility] Medical CenterComtrinity health [facility] hospital on above:Performed By: #### LIPR #### [address] [address] De [employer] Winder: Jersey Dahl MD #### CDP, CP #### [address] [place], [place] 9903383 [employer] Winder: Kayley Doll MDGFR/1.73 sq M.predicted among non-blacks MDRD (S/P/Bld) [Vol rate/Area]mL/min/{1.73_m2}Normal>60[facility] Medical CenterComment on above:Result Comment: These results are not intended for [...] or following therapy that affects renal tubular secretion.Performed By: #### LIPR #### [address] [address] [employer] Winder: Jersey Dahl MD #### CDP, CP #### [address] [place] [phone] De I[employer] Winder: Kayley Doll MDGlucose [Mass/Vol]96 mg/iUWmggls25-24UvudbTriHealth McCullough-Hyde Memorial HospitalComtrinity health [facility] hospital on above:Performed By: #### LIPR #### [address] [address] De I[employer] Winder: Jersey Dahl MD #### CDP, CP #### [address] [place], [place] 7410683 De [employer]cer Element Winder: MOHAN Greeneotassium [Moles/Vol]4.1 mmol/LNormal3.7-5.3MTriHealth McCullough-Hyde Memorial HospitalComment on above:Performed By: #### LIPR #### [address] [address] De Icer [employer] Winder: Jersey Dahl MD #### CDP, CP #### [address] [place], [place] 3167383 De [employer]cer Element Winder: MOHAN Greenerotein [Mass/Vol]7.6 g/dLNormal6.4-8.3Mst. vincent hospitaly Spangle HospitalComment on above:Performed By: #### LIPR #### [address] [address] De Icer Element Winder: Jersey Dahl MD #### CDP, CP #### [address] [place] [phone] De [employer] Winder: LIZ Greeneodium [Moles/Vol]158 mmol/QZaab215-197HgxmbFirelands Regional Medical CenterComment on above:Performed By: #### LIPR #### [address] [address] De Icer Element Winder: Jersey Dahl MD #### CDP, CP #### [address] [place] [phone] De [employer] Element Winder: Kayley Doll MDUrea nitrogen [Mass/Vol]39 mg/dLHigh8-23[facility] Medical CenterComment on above:Performed By: #### LIPR #### [address] [address] De Icer Element Winder: Jersey Dahl MD #### CDP, CP #### [address] [place], [place] 2155183 De [employer]cer Element Winder: DAVIS Greeneomprehensive Metabolic Panelon [id number] [Mass/Vol]4.4 g/dL3.5 - 5.2 g/dLBON SECOURS MERCY HEALTHAlbumin/Globulin [Mass ratio]1.4 {ratio}1.0 - 2.5[facility]Y HEALTHALP [Catalytic activity/Vol] 111 U/LHigh35 - 104 U/LBON SECOURS [facility]LEY SURGICAL HOSPITALY HEALTHALT [Catalytic activity/Vol]26 U/L5 - 33 U/LBON [facility]OURS [facility]LEY SURGICAL HOSPITALY HEALTHAnion gap [Moles/Vol]12 mmol/L9 - 17 mmol/L [facility] HEALTHAST [Catalytic activity/Vol]23 U/LNINF - 32 U/LBON [facility]GL[facility]WO[facility] HEALTHBilirubin [Mass/Vol]0.9 mg/dL0.3 - 1.2 mg/dLBON SECOURS [facility] HEALTHCalcium [Mass/Vol]11.3 mg/dLHigh8.6 - 10.4 mg/dLB[facility] HEALTHChloride [Moles/Vol]117 mmol/LHigh98 - 107 mmol/LB[facility] HEALTH CO2 [Moles/Vol]29 mmol/L20 - 31 mmol/[facility] AptoCreatinine [Mass/Vol]0.97 mg/dLHigh0.50 - 0.90 mg/dLB[facility] AptoGFR/1.73 sq M.predicted MDRD (S/P/Bld) [Vol rate/Area]- PINFBON [facility]STOWN HOSPITALComment on above: These results are not intended [...] therapy that affects renal tubular secretion. Glucose [Mass/Vol]96 mg/dL70 - 99 mg/dLB[facility] AptoInterpretation and review of laboratory resultsAbnormalBON [facility] HEALTHPotassium [Moles/Vol]4.1 mmol/L3.7 - 5.3 mmol/LBON [facility] HEALTHProtein [Mass/Vol] 7.6 g/dL6.4 - 8.3 g/dLBON [facility]GL[facility] HEALTHSodium [Moles/Vol]158 mmol/LHigh 135 - 144 mmol/LB[facility] AptoUrea nitrogen [Mass/Vol]39 mg/dLHigh8 - 23 mg/dLBON [facility] YOUNG[facility] HOSPITALUrea nitrogen/Creatinine (Bld) [Mass ratio]40 High9 - 20BON [facility] FALLSCult,Urineon [id number],UrineSpecimen Description .VOIDED URINE Culture CITROBACTER FREUNDII >[id number] CFU/ML Report Status FINAL 10/07/2022 SUSCEPTIBILITY Organism CITROBACTER FREUNDII Method TIMOTHY Ceftriaxone <=0.25 SUSCEPTIBLE Gentamicin <=1 SUSCEPTIBLE Levofloxacin 1 SUSCEPTIBLE Nitrofurantoin <=16 SUSCEPTIBLE Piperacillin/Tazobactam <=4 SUSCEPTIBLE Tobramycin <=1 SUSCEPTIBLE Trimethoprim/Sulfa <=20 SUSCEPTIBLESusceptibleFirelands Regional Medical CenterComment on above:Performed By: #### LIPR #### [address] [place], [place] [id number] [employer]: Jersey Dahl MD #### CDP, CP #### [facility] [address] [place] [address] De Icer Element Winder: Kayley Doll MDEKG 12 LeadOrdered By: Nhan June on 10-08-2022 Atrial Droc50DDRNYD [facility] GILBERTValcare Medical [facility]OSPITALSTYLIGHT Phone: P Surd79uhhymovLAWLake Taylor Transitional Care HospitalSTYLIGHT Phone: P-R Mtsnglvm690 [facility] CenterSTYLIGHT Phone: Q-T [id number] [facility] HospitalValcare Medical [facility]ITALSTYLIGHT Phone: QRS [id number] [facility] HospitalValcare Medical [facility]ITALSTYLIGHT Phone: QTc Calculation (Meagan)430 [facility] [place], [place] [employer] [facility]ITALSTYLIGHT Phone: R [id number] SECValcare Medical [facility]ITALSTYLIGHT Phone: T [id number] HealthSTYLIGHT Phone: Ventricular [id number] [facility] GILBERTValcare Medical [facility]ITALSTYLIGHT Phone: [facility] Work Phone: EKG 12 Leadon 10-08-2022 Poor data quality, interpretation may be adversely affected Sinus bradycardia Otherwise normal ECG No previous ECGs available Confirmed by Nhan June MD ([id number]) on 10/08/2022 5:02:13 PMFANNIN REGIONAL HOSPITALNhan June MD - 10/08/2022 Poor data quality, interpretation may be adversely affected Sinus bradycardia Otherwise normal ECG No previous ECGs available Confirmed by Nhan June MD ([id number]) on 10/08/2022 5:02:13 PM [facility] Work Phone: Glucose, Whole Bloodon [id number] [Mass/Vol]94 mg/dL74 - 100 mg/dLB[facility] FALLSMicroscopic Urinalysison [id number], UA3+AbnormalNoneBON [facility] Epithelial Cells UA0 TO 2[address] [facility] HOSPITALInterpretation and review of laboratory resultsAbnormalBON SECOURS MARY IMMACULATE HOSPITALRB clumps Auto (Urine sed) [#/Area]0 TO 2[address] [facility] HOSPITALWBC, UAGREATER THAN 100B[facility] FALLSUA w/Reflex Cultureon [id number], SemiQt,UrNegativeNormalNEGMercy Hartford HospitalComment on above:Performed By: #### LIPR #### [facility] WebPT [facility] [place] [address] [employer] Winder: Jersey Dahl MD #### CDP, CP #### [facility] [address] [place] [address] De [employer] Winder: Kayley Doll MDMinneapolis Va Health Care System, Urine1+AbnormalNEGFirelands Regional Medical Center Comment on above:Performed By: #### LIPR #### [facility] WebPT [address] [place] [address] [phone] [employer] W[employer]: Jersey Dahl MD #### CDP, CP #### [address] [place], [place] [phone] De [employer] Winder: DAVIS Greenelarity (U)ClearNormalCLEARFirelands Regional Medical Center Comment on above:Performed By: #### LIPR #### [address] [address] [employer] Winder: Jersey Dahl MD #### CDP, CP #### [address] [place], [place] [phone] De [employer] Winder: DAVIS Greeneolor (U)YellowNoalYThe Christ Hospital Comment on above:Performed By: #### LIPR #### [address] [address] [employer] Winder: Jersey Dahl MD #### CDP, CP #### [address] [place], [place] 8201983 De [employer] Winder: Kayley Doll MDGlucose Ql (U)NegativeNormalNEGFirelands Regional Medical CenterComment on above:Performed By: #### LIPR #### [address] [address] [employer] Winder: Jersey Dahl MD #### CDP, CP #### [address] [place], [place] [phone] De [employer] Winder: Kayley Doll MDKetones Ql (U)2+AbnormalNEGFirelands Regional Medical Center Comment on above:Performed By: #### LIPR #### [address] [address] [employer] Winder: Jersey Dahl MD #### CDP, CP #### [address] [place], [place] [phone] [employer] Winder: Kayley Doll MDLeukocyte esterase Test strip Ql (U)MODERATE AbnormalNEGMerUniversity Hospitals St. John Medical Center HospitalComment on above:Performed By: #### LIPR #### [address] [address] De [employer] Winder: Jersey Dahl MD #### CDP, CP #### [address] [place] [address] De [employer]cer Element Winder: Richard Greeneite,UrPositiveAbnormalNEGFirelands Regional Medical Center Comment on above:Performed By: #### LIPR #### [address] [address] [employer] Winder: Jersey Dahl MD #### CDP, CP #### [address] [place] [address] De [employer] Winder: MOHAN Greene,Ur6.8Kfcoab9.0-9.0Firelands Regional Medical CenterComment on above:Performed By: #### LIPR #### [address] [address] De [employer] Winder: Jersey Dahl MD #### CDP, CP #### [address] [place] [address] De [employer]cer Element Winder: Judy Greene Ql (U)TRACEAbnormalNEGTrumbull Regional Medical Center HospitalComment on above:Performed By: #### LIPR #### [address] [address] De [employer] Winder: Jersey Dahl MD #### CDP, CP #### [address] [place] [address] De [employer]cer Element Winder: LIZ Greenepec. [place],Ur>1.116Ndqv7.010-1.020Mer[facility] [place] HospitalComment on above:Performed By: #### LIPR #### [address] [id number] De [employer] Element Winder: Jersey Dahl MD #### MARLIN, CP #### [facility] [address] [place] [address] De Icer Element Winder: Kayley Doll MDUrobilinogen,UrNormalNormalNORMMercy Hartford HospitalComment on above:Performed By: #### LIPR #### [employer] [address] [place], [place] [phone] De Icer Element Winder: Jersey Dahl MD #### MARLIN, CP #### [facility] [address] [place] [address] De Icer Element Winder: Kayley Doll MDUrinalysis with Reflex to Cultureon 10-08-2022 Bilirubin UrineNegativeNEGATIVEBON SECOURS [facility] SURG[facility] HOSPITALY HEALTHColor, UAYellowYellowBON SECOURS [facility] SURGICAL HOSPITALY HEALTHGlucose Auto test strip (U) [Mass/Vol]NegativeNEGATIVEB[facility] HEALTHInterpretation and review of laboratory resultsAbnormalB[facility] HEALTHKetones (U) [Mass/Vol]2+AbnormalNEGATIVEBON SECOURS [facility] SUR[facility] HOSPITALY HEALTHLeukocyte esterase Auto test strip Ql (U)MODERATEAbnormalNEGATIVEB[facility] HEALTHNitrite Auto test strip Ql (U)PositiveAbnormalNEGATIVEB[facility] HEALTHProtein (U) [Mass/Vol]6.0 mg/dL5.0 - 9.0[facility] HEALTHProtein (U) [Mass/Vol]TRACEAbnormalNEGATIVEB[facility] HEALTH Specific [place], UAHigh1.010 - 1.020[facility] HEALTHTurbidity UAClear ClearBON SECOURS [facility] HOSPITALY HEALTHUrine Hgb1+AbnormalNEGATIVEB[facility]ALTH Urobilinogen, UrineNormalNormalB[facility] HEALTHB[facility]ALTH Urinalysis,Microon [id number]+AbnormalNONEMercy Hartford HospitalComment on above:Performed By: #### LIPR #### [employer] [address] [place], [place] [phone] De Icer Element Winder: Jersey Dahl MD #### CDP, CP #### [facility] [address] [place] [address] [place] [address] De [employer] Winder: Kayley Doll MDEpithelial cells LM Ql (Urine sed)0 TO 6Pqmtox3-34 [facility] Medical CenterComment on above:Performed By: #### LIPR #### [address] [address] De [employer]cer Element Winder: Jersey Dahl MD #### CDP, CP #### [address] [place] [address] De [employer]cer Element Winder: Kayley Doll MDUrine RBC's0 TO 9Dfgktm4-8JbmflTriHealth [facility] Comment on above:Performed By: #### LIPR #### [address] [address] De Icer Element Winder: Jersey Dahl MD #### CDP, CP #### [address] [place] [address] De Icer Element Winder: Kayley Doll MDUrine WBC'sGREATER THAN 162Ixghzi8-2Ekkwj Hartford HospitalComment on above:Performed By: #### LIPR #### [address] [address] De Icer Element Winder: Jersey Dahl MD #### CDP, CP #### [address] [place] [address] De [employer]cer [employer] Winder: Kayley Doll MDUrinalysis, Routineon [id number], SemiQt,UrNegativeNormalNEGMercy Hartford HospitalComment on above:Performed By: #### LIPR #### [address] [address] De Icer Element Winder: Jersey Dahl MD #### CDP, CP #### [facility] [address] [place] [address] Dr[place], [place] [phone] De Icer Element Winder: Kayley Doll MDBlood, UrineNegativeNormalNEGFirelands Regional Medical Center Comment on above:Performed By: #### LIPR #### [address] [address] De Icer Element Winder: Jersey Dahl MD #### CDP, CP #### [address] [place], [place] [phone] De Icer Element Winder: DAVIS Greenelarity (U)TurbidAbnormalCLEARMercy Hartford HospitalComment on above:Performed By: #### LIPR #### [address] [address] De Icer [employer] Winder: Jersey Dahl MD #### CDP, CP #### [address] [place], [place] [phone] De Icer Element Winder: DAVIS Greeneolor (U)YellowNormalYELMerBridgeport Hospital Comment on above:Performed By: #### LIPR #### [address] [address] De Icer Element Winder: Jersey Dahl MD #### CDP, CP #### [address] [place], [place] [phone] De Icer Element Winder: Kayley Doll MDGlucose Ql (U)NegativeNormalNEGFirelands Regional Medical CenterComment on above:Performed By: #### LIPR #### [address] [address] De Icer Element Winder: Jersey Dahl MD #### CDP, CP #### [facility] [address] [place] [address] [place]. [place], [place] [phone] De Icer Element Winder: Kayley Doll MDKetones Ql (U)1+AbnormalNEGFirelands Regional Medical Center Comment on above:Performed By: #### LIPR #### [address] [address] De Icer Element Winder: Jersey Dahl MD #### CDP, CP #### [address] [place] [address] De Icer Element Winder: Kayley Doll MDLeukocyte esterase Test strip Ql (U)NegativeNormal NEGMerUniversity Hospitals St. John Medical Center HospitalComment on above:Performed By: #### LIPR #### [address] [address] De Icer Element Winder: Jersey Dahl MD #### CDP, CP #### [address] [place], [place] 5573783 De Icer Element Winder: Kayley Doll MDNitrite,UrPositiveAbnormalNEGFirelands Regional Medical Center Comment on above:Performed By: #### LIPR #### [address] [address] De Icer Element Winder: Jersey Dahl MD #### CDP, CP #### [address] [place], [place] 5981583 De Icer Element Winder: Kayley Doll [facility],Ur6.4Autfth7.0-9.0Firelands Regional Medical CenterComment on above:Performed By: #### LIPR #### [address] [address] De Icer Element Winder: Jersey Dahl MD #### CDP, CP #### [address] [place], [place] [phone] De Icer Element Winder: MOHAN Greenerotein Ql (U)NegativeNormalNEGFirelands Regional Medical CenterComment on above:Performed By: #### LIPR #### [address] [address] De Icer Element Winder: Jersey Dahl MD #### CDP, CP #### [address] [place] [address] De Icer Element Winder: LIZ Greenepec. [place],Ur>1.761Jtxr4.010-1.020Firelands Regional Medical CenterComment on above:Performed By: #### LIPR #### [address] [address] De Icer Element Winder: Jersey Dahl MD #### CDP, CP #### [address] [place] [address] De Icer Element Winder: Kayley Doll MDUrobilinogen,UrNormalNormalNORMFirelands Regional Medical CenterComment on above:Performed By: #### LIPR #### [address] [address] De Icer Element Winder: Jersey Dahl MD #### CDP, CP #### [address] [place] [address] De Icer Element Winder: Kayley Doll MDUrinalysis,Microon [id number] sediment LM Ql (Urine sed)3+AbnormalNONEMeJohn C. Stennis Memorial Hospital HospitalComment on above:Performed By: #### LIPR #### [address] [address] De Icer Element Winder: Jersey Dahl MD #### CDP, CP #### [address] [place] [address] De Icer Element Winder: Kayley Doll MDBacteria2+AbnormalNONEMeJohn C. Stennis Memorial Hospital HospitalComment on above:Performed By: #### LIPR #### [address] [address] De Icer Element Winder: Jersey Dahl MD #### CDP, CP #### [address] [place], [place] 2674983 De Icer Element Winder: Kayley Doll MDEpithelial cells LM Ql (Urine sed)NoneNormal0-25 [facility] Medical CenterComment on above:Performed By: #### LIPR #### [facility] [address] [place] [address] De Icer Element Winder: Jersey Dahl MD #### CDP, CP #### [facility] [address] [place], [place] 0[address]3483 De Icer Element Winder: Gregg Greene RBC'sNoneNormal0-2MTriHealth McCullough-Hyde Memorial Hospital Comment on above:Performed By: #### LIPR #### [facility] [address] [place] [address] De Icer Element Winder: Jersey Dahl MD #### CDP, CP #### [facility] [address] [place], [place] [phone] De Icer Element Winder: Kayley Doll MDUrine WBC's0 TO 3Wjfkfr7-6QdugpFirelands Regional Medical Center Comment on above:Performed By: #### LIPR #### [facility] [address] [place] [address] De Icer Element Winder: Jersey Dahl MD #### CDP, CP #### [facility] [address] [place] [address] [place] [address] De Icer Element Winder: Kayley Doll MDLipid Panelon [id number] [Mass/Vol]199 mg/dLNINF - 200 mg/dLBON [facility] YOU[facility]OWN HOSPITALComment on above: Cholesterol Guidelines: <200 Desirable 200-240 Borderline >240 Undesirable Cholesterol in HDL [Mass/Vol]107 mg/dL40 - PINF mg/dLBON [facility] Comment on above: HDL Guidelines: <40 Undesirable 40-59 Borderline >59 Desirable Cholesterol in LDL [Mass/Vol]73 mg/dL0 - 130 mg/dLBON [facility] Comment on above: LDL Guidelines: <100 Desirable 100-129 Near to/above Desirable 130-159 Borderline >159 Undesirable Direct (measured) LDL and calculated LDL are not interchangeable tests. Cholesterol.total/Cholesterol in HDL [Mass ratio]1.9 {ratio}NINF - 5B[facility] HOSPITALTriglyceride [Mass/Vol]93 mg/dLNINF - 150 mg/dLBON [facility] HOSPITALComtrinity health [facility] on above: Triglyceride Guidelines: <150 Desirable 150-199 Borderline 200-499 High >499 Very high Based on AHA Guidelines for fasting triglyceride, March 2012. [facility]NG[facility] HOSPITALLipid Profileon [id number] [Mass/Vol]199 mg/dLNormal<200[facility] on above:Result Comment: Cholesterol Guidelines: <200 Desirable 200-240 Borderline >240 UndesirablePerformed By: #### LIPR #### [address] [address] De Icer Element Winder: Jersey Dahl MD #### CDP, CP #### [address] [place] [phone] De Icer Element Winder: DAVIS Greeneholesterol in HDL [Mass/Vol]107 mg/dLNormal>40 [facility] on above:Result Comment: HDL Guidelines: <40 Undesirable 40-59 Borderline >59 DesirablePerformed By: #### LIPR #### [address] [address] De Icer Element Winder: Jersey Dahl MD #### CDP, CP #### [address] [place] [phone] De Icer Element Winder: DAVIS Greeneholesterol in LDL [Mass/Vol]73 mg/dLNormal0-130 [facility] on above:Result Comment: LDL Guidelines: <100 Desirable 100-129 Near to/above Desirable 130-159 Borderline >159 Undesirable Direct (measured) LDL and calculated LDL are not interchangeable tests.Performed By: #### LIPR #### [address] [address] De Icer Element Winder: Jersey Dahl MD #### CDP, CP #### [facility] [address] [place] [address] Dr. [place], [place] 0[address]1683 De Icer Element Winder: DAVIS Greeneholesterosandra.total/Cholesterol in HDL [Mass ratio] 1.9 {ratio}Normal<5Firelands Regional Medical CenterComment on above:Performed By: #### LIPR #### [address] [place], [place] 9[address]12[address] De Icer Element Winder: Jersey Dahl MD #### CDP, CP #### [address] [place], [place] [address] De Icer Element Winder: Kayley Doll MDTriglyceride [Mass/Vol]93 mg/dLNormal<150Firelands Regional Medical CenterComment on above:Result Comment: Triglyceride Guidelines: <150 Desirable 150-199 Borderline 200-499 High >499 Very high Based on AHA Guidelines for fasting triglyceride, March 2012.Performed By: #### LIPR #### [address] [place] [address] De Icer Element Winder: Jersey Dahl MD #### CDP, CP #### [address] [place] [address] De Icer Element Winder: DAVIS GreeneBC with Auto Differentialon [id number] Eos #0.14[facility] HEALTHAbsolute Immature GranulocyteBON SECOURS MERCY HEALTHAbsolute Lymph #0.95LowB[facility] SECOURS MERCY HEALTHAbsolute [place] #0.50[facility] HEALTHBasophils (Bld) [#/Vol]0.03 10*3/uLBON SECOURS MERCY [facility]ALTH Basophils/100 WBC (Bld)1 %0 - 2 %[facility] HEALTHEosinophils/100 WBC (Bld)2 %1 - 4 %[facility] HEALTHHematocrit (Bld) [Volume fraction]32.9 % Low36.3 - 47.1 %[facility] HEALTHHemoglobin (Bld) [Mass/Vol]10.5 g/dLLow 11.9 - 15.1 g/dLBON [facility] ST[facility] HOSPITALImmature granulocytes/100 WBC (Bld)0 %0 [facility] HOSPITALInterpretation and review of laboratory resultsAbnormal [facility] HOSPITALLymphocytes/100 WBC (Bld)15 %Low24 - 43 %[facility] ALLIANCEH (RBC) [Entitic mass]31.3 pg25.2 - 33.5 pgBON MEMOR[facility] SYSTEM MARI[facility]IAL HOSPITALHC (RBC) [Mass/Vol]31.9 g/dL28.4 - 34.8 g/dLBON SECLANCASTER MUNICIPAL HOSPITALV (RBC) [Entitic vol]97.9 fL82.6 - 102.9 fLBON SECOURS MARY IMMACULATE HOSPITALMonocytes/100 WBC (Bld)8 %3 - 12 %[facility] HOSPITALNRBC Automated0.00.0 per 100 WBCBON SECOURS MARY IMMACULATE HOSPITALPlatelet distribution width (Bld) [Ratio]15.6 %High11.8 - 14.4 %[facility] HOSPITALPlatelet mean volume (Bld) [Entitic vol]9.7 fL8.1 - 13.5 fLTWIN COUNTY REGIONAL HEALTHCARE HEALTHPlatelets (Bld) [#/Vol]148 10*3/uLBON [facility] ST[facility] ELIZABETH YOUNGSTOWN HOSPITALRBC (Bld) [#/Vol]3.36 10*6/uLLow3.95 - 5.11 m/uLBON SECOURS MARY IMMACULATE HOSPITALSegmented neutrophils/100 WBC (Bld)74 %High36 - 65 %[facility] M[facility] IMMACULATE HOSPITALSegs Absolute4.83[facility] HOSPITALWBC (Bld) [#/Vol]6.5 10*3/uLBON [facility] - SI[facility]X FALLSCBC with Diffon [id number]. Basophil0.03 k/uLNormal0.00-0.20Fire[facility] Medical CenterComment on above:Performed By: #### LIPR #### [facility] Web[employer] [address] [place] [address] De [employer]cer Element Winder: Jersey Dahl MD #### SARTHAK ISAAC #### [facility] [address] [place] [address] De [employer]cer Element Winder: Leonard Greene.Imm.Granulocyte<0.03Uhggsk7.00-0.30Fire[facility] Regional Medical CenterComment on above:Performed By: #### LIPR #### [address] [address] [employer] Winder: Jersey Dahl MD #### CDP, CP #### [address] [place] [address] De Icer Element Winder: Leonard Greene.Neutrophil (Seg)4.83 k/uLNormal1.50-8.10[facility] Medical CenterComment on above:Performed By: #### LIPR #### [address] [address] De Icer Element Winder: Jersey Dahl MD #### CDP, CP #### [address] [place] [address] De [employer]cer Element Winder: Kayley Doll MDBasophils/100 WBC (Bld)1 %Normal0-2MTriHealth McCullough-Hyde Memorial HospitalComment on above:Performed By: #### LIPR #### [address] [address] De Icer Element Winder: Jersey Dahl MD #### CDP, CP #### [address] [place] [address] De Icer Element Winder: Kayley Doll MDEosinophils (Bld) [#/Vol]0.14 10*3/uLNormal 0.00-0.44[facility] Medical CenterComment on above:Performed By: #### LIPR #### [address] [address] De [employer] Winder: Jersey Dahl MD #### CDP, CP #### [address] [place] [phone] De [employer]cer Element Winder: Kayley Doll MDEosinophils/100 WBC (Bld)2 %Normal1-4Fire[facility] Medical CenterComment on above:Performed By: #### LIPR #### [address] [place] [address] De Icer Element Winder: Jersey Dahl MD #### CDP, CP #### [address] [place] [phone] [employer] Winder: Kayley Doll MDErythrocyte distribution width (RBC) [Ratio]15.6 % High11.8-14.4Fire[facility] Regional Medical CenterComment on above:Performed By: #### LIPR #### [address] [address] [employer] Winder: Jersey Dahl MD #### CDP, CP #### [address] [place] [phone] De [employer]cer Element Winder: Kayley Doll MDHematocrit (Bld) [Volume fraction]32.9 %Low 36.3-47.1Mst. vincent hospitaly Hartford HospitalComment on above:Performed By: #### LIPR #### [address] [address] De Icer Element Winder: Jersey Dahl MD #### CDP, CP #### [address] [place] [phone] De [employer] Winder: Kayley Doll MDHemoglobin (Bld) [Mass/Vol]10.5 g/dLLow11.9-15.1 [facility] CenterComment on above:Performed By: #### LIPR #### [address] [address] De [employer] Element Winder: Jersey Dahl MD #### CDP, CP #### [address] [place] [phone] De Icer Element Winder: Kayley Doll MDImmature granulocytes/100 WBC (Bld)0 %Dldyrr4DqwnhFirelands Regional Medical CenterComment on above:Performed By: #### LIPR #### [address] [address] De Icer Element Winder: Jersey Dahl MD #### CDP, CP #### [address] [place] [phone] De Icer Element Winder: Kayley Doll MDLymphocytes (Bld) [#/Vol]0.95 10*3/uLLow1.10-3.70 [facility] CenterComment on above:Performed By: #### LIPR #### [address] [address] De Icer Element Winder: Jersey Dahl MD #### CDP, CP #### [address] [place] [address] De [employer]cer Element Winder: Kayley Doll MDLymphocytes/100 WBC (Bld)15 %Fqx99-88JmdfwFirelands Regional Medical CenterComment on above:Performed By: #### LIPR #### [address] [address] [employer] Winder: Jersey Dahl MD #### CDP, CP #### [address] [place] [address] De Icer Element Winder: LUKASZ Greene (RBC) [Entitic mass]31.3 uoKmwlgb60.2-33.5 [facility] CenterComment on above:Performed By: #### LIPR #### [address] [address] [employer] Winder: Jersey Dahl MD #### CDP, CP #### [address] [place] [phone] De Icer Element Winder: LUKASZ GreeneC (RBC) [Mass/Vol]31.9 g/tKMujkmu39.4-34.8Fire[facility] Medical CenterComment on above:Performed By: #### LIPR #### [address] [address] De [employer] Winder: Jersey Dahl MD #### CDP, CP #### [address] [place] [phone] De [employer] Winder: GISSEL GreeneCV (RBC) [Entitic vol]97.9 uGKisiso86.6-102.9 [facility] Medical CenterComment on above:Performed By: #### LIPR #### [address] [address] De Icer Element Winder: Jersey Dahl MD #### CDP, CP #### [address] [place] [address] De Icer Element Winder: GISSEL Greeneonocytes (Bld) [#/Vol]0.50 10*3/uLNormal0.10-1.20 [facility] CenterComment on above:Performed By: #### LIPR #### [address] [address] De Icer Element Winder: Jersey Dahl MD #### CDP, CP #### [address] [place] [address] De Icer Element Winder: GISSEL Greeneonocytes/100 WBC (Bld)8 %Normal3-12[facility] CenterComment on above:Performed By: #### LIPR #### [address] [address] De Icer Element Winder: Jersey Dahl MD #### CDP, CP #### [address] [place] [phone] ( De Icer Element Winder: Kayley Doll MDNeutrophil (Seg)74 %Ciyy70-21AqcduFirelands Regional Medical Center Comment on above:Performed By: #### LIPR #### [facility] [address] [place] [address] De Icer Element Winder: Jersey Dahl MD #### CDP, CP #### [address] [place], [place] [id number] De Icer Element Winder: Kayley Doll MDNRBC Automated0.0 per 100 WBCNormal0.0[facility] Medical CenterComment on above:Performed By: #### LIPR #### [address] [place] [address] De Icer Element Winder: Jersey Dahl MD #### CDP, CP #### [address] [place] [phone] De Icer Element Winder: Trevon Greene mean volume (Bld) [Entitic vol]9.7 fL Normal8.1-13.5[facility] Medical CenterComment on above:Performed By: #### LIPR #### [address] [place] [address] De Icer Element Winder: Jersey Dahl MD #### CDP, CP #### [address] [place] [address] De Icer Element Winder: Elisabeth Greene (Bld) [#/Vol]148 10*3/zTKucgpo613-795 [facility] CenterComment on above:Performed By: #### LIPR #### [facility] [address] [place] [address] De Icer Element Winder: Jersey Dahl MD #### CDP, CP #### [address] [place] [address] De Icer Element Winder: MER GreeneBC (Bld) [#/Vol]3.36 10*6/uLLow3.95-5.11[facility] Spangle HospitalComment on above:Performed By: #### LIPR #### [address] [address] De Icer Element Winder: Jersey Dahl MD #### CDP, CP #### [address] [place] [address] De Icer Element Winder: Kayley Doll MDWBC (d) [#/Vol]6.5 10*3/uLNormal3.5-11.3Mst. vincent hospitaly Spangle HospitalComment on above:Performed By: #### LIPR #### [address] [address] De Icer Element Winder: Jersey Dahl MD #### CDP, CP #### [address] [place] [phone] ( De Icer Element Winder: DAVIS Greenelayton hospital Metabolic Profon 62-70-6107Ajaucpt [Mass/Vol] 3.9 g/dLNormal3.5-5.2Mst. vincent hospitaly Spangle HospitalComment on above:Performed By: #### LIPR #### [address] [address] De Icer Element Winder: Jersey Dahl MD #### CDP, CP #### [address] [place], [place] [phone] De Icer Element Winder: Kayley Doll MDAlbumin/Glob Ratio1.1Tallwj6.0-2.5[facility] CenterComment on above:Performed By: #### LIPR #### [address] [address] De Icer Element Winder: Jersey Dahl MD #### CDP, CP #### [address] [place] [address] De Icer Element Winder: Dali Greenekaline Phos99 U/KQvglei15-427HyxkaFirelands Regional Medical CenterComment on above:Performed By: #### LIPR #### [address] [address] De Icer Element Winder: Jersey Dahl MD #### CDP, CP #### [address] [place], [place] 1467183 De Icer Element Winder: Kayley Doll MDALT [Catalytic activity/Vol]27 U/LNormal5-33[facility] CenterComment on above:Performed By: #### LIPR #### [address] [address] De Icer Element Winder: Jersey Dahl MD #### CDP, CP #### [address] [place], [place] [address]83 De Icer Element Winder: Kayley Doll MDAnichioma gap [Moles/Vol]10 mmol/LNormal9-17[facility] HospitalComment on above:Performed By: #### LIPR #### [address] [address] De Icer Element Winder: Jersey Dahl MD #### CDP, CP #### [address] [place], [place] 446[address]83 De Icer Element Winder: Kayley Doll MDAST [Catalytic activity/Vol]21 U/LNormal<32[facility] CenterComment on above:Performed By: #### LIPR #### [address] [address] De Icer Element Winder: Jersey Dahl MD #### CDP, CP #### [address] [place], [place] 3468883 De Icer Element Winder: Kayley Doll MDBilirubin [Mass/Vol]1.0 mg/dLNormal0.3-1.2MKettering Health Dayton HospitalComment on above:Performed By: #### LIPR #### [address] [address] De Icer Element Winder: Jersey Dahl MD #### CDP, CP #### [facility] [address] [place] [address] Dr. [place], [place] [phone] De Icer Element Winder: Kayley Doll MDBUN/CRE Fznxu46Zdev5-60LpkmhFirelands Regional Medical Center Comment on above:Performed By: #### LIPR #### [address] [place] [address] De Icer Element Winder: Jersey Dahl MD #### CDP, CP #### [address] [place] [address] De Icer Element Winder: DAVIS Greenealcium [Mass/Vol]10.9 mg/dLHigh8.6-10.4[facility] CenterComment on above:Performed By: #### LIPR #### [address] [address] De Icer Element Winder: Jersey Dahl MD #### CDP, CP #### [address] [place] [address] De Icer Element Winder: DAVIS Greenehloride [Moles/Vol]110 mmol/LYhbz42-067KozalFirelands Regional Medical CenterComment on above:Performed By: #### LIPR #### [address] [address] De Icer Element Winder: Jersey Dahl MD #### CDP, CP #### [facility] [address] [place] [address] [place] [address] De Icer Element Winder: DAVIS GreeneO2 [Moles/Vol]30 mmol/IPupdei37-05OzvgmFirelands Regional Medical CenterComment on above:Performed By: #### LIPR #### [address] [address] De Icer Element Winder: Jersey Dahl MD #### CDP, CP #### [address] [place], [place] 2352983 De Icer Element Winder: DAVIS Greenereatinine [Mass/Vol]0.99 mg/dLHigh0.50-0.90[facility] Medical CenterComtrinity health [facility] hospital on above:Performed By: #### LIPR #### [address] [address] De Icer Element Winder: Jersey Dahl MD #### CDP, CP #### [address] [place], [place] [address]83 De Icer Element Winder: Kayley Doll MDGFR/1.73 sq M.predicted among non-blacks MDRD (S/P/Bld) [Vol rate/Area]mL/min/{1.73_m2}Normal>60[facility] Medical CenterComment on above:Result Comment: These results are not intended for [...] or following therapy that affects renal tubular secretion.Performed By: #### LIPR #### [address] [address] De Icer Element Winder: Jersey Dahl MD #### CDP, CP #### [address] [place], [place] 32[address]683 De Icer Element Winder: Kayley Doll MDGlucose [Mass/Vol]80 mg/eIAgvbmy51-35TblfiTriHealth McCullough-Hyde Memorial HospitalComment on above:Performed By: #### LIPR #### [address] [address] De Icer Element Winder: Jersey Dahl MD #### CDP, CP #### [address] [place], [place] 3158983 De Icer Element Winder: MOHAN Greeneotassium [Moles/Vol]3.5 mmol/LLow3.7-5.3Mst. vincent hospitaly [facility] HospitalComment on above:Performed By: #### LIPR #### [address] [address] De Icer Element Winder: Jersey Dahl MD #### CDP, CP #### [address] [place] [phone] De Icer Element Winder: MOHAN Greenerotein [Mass/Vol]7.4 g/dLNormal6.4-8.3Mst. vincent hospitaly Sp[facility] HospitalComment on above:Performed By: #### LIPR #### [address] [address] De Icer Element Winder: Jersey Dahl MD #### CDP, CP #### [address] [place] [phone] ( De Icer Element Winder: LIZ Greeneodium [Moles/Vol]150 mmol/YFvwr781-457QggbkFirelands Regional Medical CenterComment on above:Performed By: #### LIPR #### [address] [address] De Icer Element Winder: Jersey Dahl MD #### CDP, CP #### [address] [place] [address] De Icer Element Winder: Kayley Doll MDUrea nitrogen [Mass/Vol]40 mg/dLHigh8-23[facility] Medical CenterComment on above:Performed By: #### LIPR #### [address] [address] De Icer Element Winder: Jersey Dahl MD #### CDP, CP #### [address] [place] [phone] De Icer Element Winder: Kayley Doll [facility] GROVEomprehensive Metabolic Panelon 96-37-1577Ixuqprp [Mass/Vol]3.9 g/dL3.5 - 5.2 g/dLBON [facility] FeebboAlbumin/Globulin [Mass ratio]1.1 {ratio}1.0 - 2.5[facility] FeebboALP [Catalytic activity/Vol]99 U/L35 - 104 U/LBON [facility]ITALSidecar HEALTHALT [Catalytic activity/Vol]27 U/L5 - 33 U/LBON [facility]OS[facility]ITALWhatSalonAnion gap [Moles/Vol]10 mmol/L9 - 17 mmol/LBON [facility]ERSidecar HEALTHAST [Catalytic activity/Vol]21 U/LNINF - 32 U/LBON [facility]ENTERWhatSalonBilirubin [Mass/Vol]1.0 mg/dL0.3 - 1.2 mg/dLB[facility] Apto Calcium [Mass/Vol]10.9 mg/dLHigh8.6 - 10.4 mg/dLBON [facility]ITALWhatSalonChloride [Moles/Vol]110 mmol/LHigh98 - 107 mmol/LBON [facility] AptoCO2 [Moles/Vol] 30 mmol/L20 - 31 mmol/LBON [facility]ITALWhatSalonCreatinine [Mass/Vol]0.99 mg/dL High0.50 - 0.90 mg/dLBON [facility] FeebboGFR/1.73 sq M.predicted MDRD (S/P/Bld) [Vol rate/Area]- PINFBON MER[facility] ST[facility] YOUNGSTOWN HOSPITALComment on above: These results are not intended [...] therapy that affects renal tubular secretion. Glucose [Mass/Vol]80 mg/dL70 - 99 mg/dLBON [facility] FeebboInterpretation and review of laboratory resultsAbnormalBON [facility]PIN[facility] FeebboPotassium [Moles/Vol]3.5 mmol/LLow3.7 - 5.3 mmol/LBON [facility] Xintu Shuju HEALTHProtein [Mass/Vol]7.4 g/dL6.4 - 8.3 g/dLBON [facility]OS[facility]ITALSodium [Moles/Vol]150 mmol/OTsuv257 - 144 mmol/LBON [facility]NG[facility] HOSPITALUrea nitrogen [Mass/Vol]40 mg/dLHigh8 - 23 mg/dLBON [facility]NG[facility] HOSPITALUrea nitrogen/Creatinine (Bld) [Mass ratio]36Aexg2 - 20BON [facility] LIMABON [facility] Thyroxine T4on 86-41-9648U2 [Mass/Vol]10.7 ug/dLNormal4.5-10.9Fire[facility] Medical CenterComment on above:Performed By: #### LIPR #### [address] [place] [address] De Icer Element Winder: Jersey Dahl MD #### CDP, CP #### [address] [place] [phone] De Icer Element Winder: Kayley Doll MDTriiodothyronine T3on 93-82-8960Pgunbyjuimbgvngw T363 ng/aUKvxlao88-659PncnhFirelands Regional Medical CenterComment on above:Performed By: #### LIPR #### [address] [id number] De Icer Element Winder: Jersey Dahl MD #### CDP, CP #### [address] [place] [phone] De Icer Element Winder: Kayley Doll MDT3, [facility] 41-51-2823Zwrt T3 [Mass/Vol]1.96 pg/mL Low2.02-4.43[facility] Medical CenterComment on above:Performed By: #### LIPR #### [address] [id number] De Icer Element Winder: Jersey Dahl MD #### CDP, CP #### [address] [place] [address] De Icer Element Winder: Kayley Doll MDTSHo 36-27-1863LBZ Qn0.39 m[IU]/LBON [facility] HOSPITALBON [facility] HOSPITALThyroid Stim. Horm.on 28-40-0277Ademhhu Stim. Horm.0.39 uIU/mLNormal0.30-5.00[facility] Medical CenterComment on above: Performed By: #### T4, FT4, T3, FT3 #### [address] [id number] De Icer Element Winder: Jeresy Dahl MD #### TSH #### [address] [place] [phone] De Icer Element Winder: Kayley Doll MDThyroxine, Freeon 86-99-6503Iimysxsqi, Free1.5 ng/dLNormal0.9-1.7Fire[facility] Medical CenterComment on above:Performed By: #### LIPR #### [place] [address] De Icer Element Winder: Jersey Dahl MD #### CDP, CP #### [address] [place] [address] De Icer Element Winder: Kayley Doll MDACETAMINOPHENon 34-41-7006Ftjifalguhirp [Mass/Vol] ug/mLCritically low10.0-30.0The [facility] HospitalComment on above:Performed By: #### SALYC, ACET, ETH ####[facility] [address] [address]Dr. Soniya ChiBNPon 43-95-7796Oidzybbibhz peptide B (Bld) [Mass/Vol]70.0 pg/mLNormal<=900.0The [facility] HospitalComment on above: Performed By: #### TSH, CMP, BNP, CMADM ####[facility] [address] [address]Dr. Soniya ChiCARDIAC HAYDER ADMITon [id number] [Catalytic activity/Vol]19 U/LCritically dip63-740Xax [facility] HospitalComment on above:Performed By: #### TSH, CMP, BNP, CMADM ####[facility] [address]ref[address]up[address] [address]Dr. Soniya ChiCK.MB [Mass/Vol]1.97 ng/mLNormal<=3.60The [facility] HospitalComment on above:Performed By: #### TSH, CMP, BNP, CMADM ####[facility] [address] [address]Dr. Soniya ChiLolunZCCKZN91.3 pg/mLNormal4.0-51.3The [facility] HospitalComment on above:Result Comment: CUT-OFF POINTS HAVE BEEN ESTABLISHED BASED ON THE FOURTH UNIVERSAL DEFINITIONS OF MYOCARDIALINFARCTION. THE UPPER REFERENCE LIMIT (URL) OF TROPONIN, DEFINED THE 99TH PERCENTILE OFcT nI DISTRIBUTION IN A REFERENCE POPULATION, HAS BEEN CONFIRMED THE DECISION THRESHOLDFOR MN DIAGNOSIS.Performed By: #### TSH, CMP, BNP, CMADM ####[facility] F[address] [place], [place] [address]Dr. Soniya ChiMYO68 ng/mLNormal9-82The [facility] HospitalComment on above:Performed By: #### TSH, CMP, BNP, CMADM ####[facility] Wnwuakqesp[address] [place], [place] [address]Dr. Soniya AlonCBC AUTO DIFFon 71-76-0787PQVY #0.0 103/ulNormal0.0-0.1 The [facility] HospitalComment on above:Performed By: #### CBC ####[facility] Odgzrvbzma[address] [place], [place] [address]Dr.Soniya Chi Basophils/100 WBC (Bld)0.2 %Normal0.2-2.0The [facility] HospitalComment on above: Performed By: #### CBC ####[facility] Gmarjslmyu[address] [place], [place] [address]Dr.Soniya ChangEO #0.0 103/ulNormal0.0-0.7The [facility] HospitalComment on above:Performed By: #### CBC ####[facility] Pjrubdbjsa[address] [place], [place] [address]Dr.Gypsyjuan ChangEosinophils/100 WBC (Bld)0.3 %Critically low0.9-7.0The [facility] HospitalComment on above: Performed By: #### CBC ####[facility] Npdfxhiokz[address] [place], [place] [address]Dr.Soniya ChangErythrocyte distribution width (RBC) [Ratio]15.8 %Critically high11.0-15.0The [facility] HospitalComment on above: Performed By: #### CBC ####[facility] Qpnbcuscbk[address] [place], [place] [address]Dr.Yilan ChangHematocrit (Bld) [Volume fraction]30.1 % Critically low36.0-48.0The [facility] HospitalComment on above:Performed By: #### CBC ####[facility] Lyayzqmglx[address] [place], [place] [address]Dr. Soniya ChangHemoglobin (Bld) [Mass/Vol]9.9 g/dLCritically low12.0-16.0The [facility] HospitalComment on above:Performed By: #### CBC ####[facility] Ngqusdikjx[address] [place], [place] [address]Dr.Yijuan ChangIG #0.02 10e3/ulNormal0.00-0.03The [facility] HospitalComment on above:Performed By: #### CBC ####[facility] Mxlbdypdap[address] [place], [place] [address]Dr. Soniya ChangIG %0.2 %Normal0.0-0.5The [facility] HospitalComment on above:Performed By: #### CBC ####[facility] Xqnewczdfx[address] [place], [place] [address]Dr.Gypsylan ChangLYMPH #0.5 103/ulCritically low1.2-3.8The [facility] HospitalComment on above:Performed By: #### CBC ####[facility] Vfrhnnosdk[address] [place], [place] [address]Dr.Yilan ChangLymphocytes/100 WBC (Bld)5.2 %Critically low20.5-60.0The [facility] HospitalComment on above: Performed By: #### CBC ####[facility] [address] [address]Dr.Soniya ChiMANUAL DIFF REQNONormalThe [facility] HospitalComment on above:Performed By: #### CBC ####[facility] [address]mys[address] [place] [address]Dr.Soniya ChiH (RBC) [Entitic mass]31.2 kfIrwoyc68.7-34.0The [facility]kley HospitalComment on above: Performed By: #### CBC ####[facility] Zmjmhamevf[address] [place], [place] [address]Dr.Soniya ChiHC (RBC) [Mass/Vol]32.9 g/dLNormal 29.9-35.2The [facility] HospitalComment on above:Performed By: #### CBC ####[facility] Vrzopxknwb[address] [place], [place] [address]Dr. Soniya ChiV (RBC) [Entitic vol]95.0 yQPbpysc36.0-99.0The [facility] Comment on above:Performed By: #### CBC ####[facility] Hvanndtiub[address] [place], [place] [address]Dr.Soniya ChiMONO #0.5 103/ulNormal0.3-0.8 [facility] HospitalComment on above:Performed By: #### CBC ####[facility] Fvxdrmwavq[address] [place], [place] [address]Dr.Soniya Alon Monocytes/100 WBC (Bld)4.6 %Normal1.7-12.0The [facility] HospitalComment on above: Performed By: #### CBC ####[facility] Vyfvyfbyxt[address] [place], [place] [address]Dr.Soniya AlonNEUT #8.9 103/ulCritically high1.4-6.5 The [facility] HospitalComment on above:Performed By: #### CBC ####[facility] Flcbgglhip[address] [place], [place] [address]Dr.Soniya Alon Neutrophils/100 WBC (Bld)89.5 %Critically high43.0-75.0The [facility] Comment on above:Performed By: #### CBC ####[facility] [address] [place] [address]Dr.Soniya ChiPlatelet mean volume (Bld) [Entitic vol]9.9 fLNormal9.5-13.5The [facility] HospitalComment on above:Performed By: #### CBC ####[facility] Tmxyiswzud[address] [place], [place] [address]Dr.Soniya ChiPLT163 103/qmMrfmfk808-582Rjt [facility]ley HospitalComment on above:Performed By: #### CBC ####[facility] Lwgnvkfewo[address] [place], [place] [address]Dr.Soniya AlonRBC3.17 106/ulCritically low4.20-5.40The [facility] HospitalComment on above:Performed By: #### CBC ####[facility] Aqnrszaymt[address] [place], [place] [address]Dr.Soniya ChiWBC9.9 103/ul Normal4.0-11.0The [facility] HospitalComment on above:Performed By: #### CBC ####[facility] Ogxrpqpblz[address] [place], [place] [address]Dr. Soniya ChiCT HEAD WO CONon [id number] HEAD WO CONNormalGrand [facility] Joint [facility] Hospital CULTURE BLOODon 55-86-3823Zrslukkwgzj examination of blood, cultureCulture Observations: NO GROWTH AT 5 DAYS.NormalGrand Lake Joint Township District Memorial HospitalComment on above:Performed By: #### BLDCX2 ####[facility] Umlhoqfjhs[address] [place], [place] [address]Dr. Gypsyjuan ChiMicroscopic examination of blood, cultureCulture Observations: NO GROWTH AT 5 DAYS.NormalGrand Lake Joint Township District Memorial HospitalComment on above:Performed By: #### BLDCX1 ####[facility] Bvnsphftuk[address] [place], [place] [address]Dr. Gypsyjuan ChiCovid-19 PCR (CVDTB)on 31-35-0284VIAG-CoV-2 (COVID-19) RNA DORIAN+probe Ql (Unsp spec)Not detectedNormalNOT DETECTEDGrand [facility] Joint [facility] District [facility] Hospital Comment on above:Result Comment: This test is not yet approved or cleared by the [place] FDA. When there are no FDA-approved or cleared tests available, and other criteria are met, FDA can make tests available under an emergency access mechanism called an Emergency Use Authorization (EUA). The EUA for this test is supported by the Welcome Hostess of Health and Human Service's (HHS's) declaration that circumstances exist to justify the emergency use of in vitro diagnostics for the detection and/or diagnosis of the virus that causes COVID- 19. This EUA will remain in effect (meaning [...] presence of clinical signs and symptomsconsistent with SARS-CoV-2.Performed By: #### CVDTBH ####[facility] Tneskzmzon[address] [place], [place] [address]Dr. Soniya ChiDRUG SCREEN RAPID (URINE)on 75-40-4484ILDQyybykitXdmsokVHIWSRYAZmw [facility] HospitalComment on above:Performed By: #### DRUGRPD ####[facility] Oaozqqxsxb[address] [place], [place] [address]Dr. Soniya ChiBAR NegativeNormalNEGATIVEGrand Lake Joint [facility] District Memorial HospitalComment on above:Performed By: #### DRUGRPD ####[facility] Zkyitanbug[address] [place], [place] [address]Dr. Soniya ChiBUPNegativeNormalNEGATIVEGuernsey Memorial Hospital HospitalComment on above:Performed By: #### DRUGRPD ####[facility] Crhtskobyu[address] [place], [place] [address]Dr. Soniya ChiBZONegativeNormalNEGATIVEGuernsey Memorial Hospital HospitalComment on above:Performed By: #### DRUGRPD ####[facility] Lujauqowwc[address] [place], [place] [address]Dr. Soniya ChiCOCNegative NormalNEGATIVEGrand Lake Joint [facility] District Memorial HospitalComment on above:Performed By: #### DRUGRPD ####[facility] Gwvhjufsqi[address] [place], [place] [address]Dr. Soniya ChiCUT-CHESAPEAKE REGIONAL MEDICAL CENTERSEE BELOWRipley County Memorial HospitalalThOhioHealth O'Bleness HospitalComment on above:Result Comment: AMP (Amphetamine): 500ng/mL, BAR (Barbituates): 200 ng/mL, BZO (Benzodiazepines): 150 ng/mL, BUP (Buprenorphine): 10 ng/mL, MARIAH (Cocaine): 150 ng/mL, mAMP (Methamphetamine): 500 ng/mL, MTD (Methadone): 200 ng/mL, OPI (Opiates): 100 ng/mL, OXY (Oxycodone): 100 ng/mL, PCP (Phencyclidine): 25 ng/mL, PPX (Propoxyphene): 300 ng/mL, THC (Cannabinoids): 50 ng/mL, TCA (Trycyclic Antidepressants): 300 ng/mLPerformed By: #### DRUGRPD ####[facility] Qnsigrtejm[address] [place], [place] [address]Dr. Soniya ChiDRUG CUT HEADERDRUG CLASS TEST SYSTEM CUT-OFF CONCENTRATIONS ARE FOLLOWS:NormalGrand Lake Joint Township District Memorial HospitalComment on above:Performed By: #### DRUGRPD ####[facility] Bqiambwbyq[address] [place], [place] [address]Dr. Soniya ChimAMP NegativeNormalNEGATIVEGrand Lake Joint [facility] District Memorial HospitalComment on above:Performed By: #### DRUGRPD ####[facility] Jkzrzhxbwh[address] [place], [place] [address]Dr. Soniya ChiMTDNegativeNormalNEGATIVEGrand Lake Joint [facility] District Memorial HospitalComment on above:Performed By: #### DRUGRPD ####[facility] Gmpxfvspwn[address] [place], [place] [address]Dr. Soniya ChiOPINegativeNormalNEGATIVEGrand [facility] Memorial HospitalComment on above:Performed By: #### DRUGRPD ####[facility] Mpncqcvzmf[address] [place], [place] [address]Dr. Soniya ChiOXYNegative NormalNEGATIVEGrand Lake Joint [facility] District Memorial HospitalComment on above:Performed By: #### DRUGRPD ####[facility] Bpssezncdy[address] [place], [place] [address]Dr. Yilan ChangPCPNegativeNormalNEGATIVEGuernsey Memorial Hospital HospitalComment on above: Performed By: #### DRUGRPD ####[facility] [address] [place] [address]Dr. Yilan ChangPPXNegativeNormalNEGATIVEGuernsey Memorial Hospital HospitalComment on above:Performed By: #### DRUGRPD ####[facility] [address]genuox[address] [place] [address]Dr. Yilan ChangTCANegative NormalNEGATIVEGuernsey Memorial Hospital HospitalComment on above:Performed By: #### DRUGRPD ####[facility] [address]qjajwxt[address] [place], [place] [address]Dr. Yilan ChangTHCNegativeNormalNEGATIVEGrand [facility] Memorial HospitalComment on above: Performed By: #### DRUGRPD ####[facility] Mnconxvblw[address] [place], [place] [address]Dr. Yilan ChangER URINE PROFILEon 58-46-8969Upfcxmvtc Ql (U)NegativeNormalNEGATIVEGrand [facility] Memorial HospitalComment on above:Performed By: #### ERUR ####[facility] Szvwsfftwk[address] [place], [place] [address]Dr. Yilan ChangClarity (U)CLEARNormalCLEARGuernsey Memorial Hospital HospitalComment on above:Performed By: #### ERUR ####[facility] Hsssyqvnom[address] [place], [place] [address]Dr. Yilan ChangColor (U)LT. YELLOWNormalYELLOWGrand Lake Joint Township District Memorial HospitalComment on above:Performed By: #### ERUR ####[facility] [address]xyryxchqm[address] [place], [place] [address]Dr. Yilan ChangERUAHDA micrscopic examination will be performed if indicated.NormalGrand Lake Joint Township District Memorial HospitalComment on above:Performed By: #### ERUR ####[facility] F[address]ropkdqum[address] [place], [place] [address]Dr. Yilan ChangGlucose Ql (U) NegativeNormalNEGATIVEGuernsey Memorial Hospital HospitalComment on above:Performed By: #### ERUR ####[facility] [address]te[address] [place] [address]Dr. Yilan ChangHemoglobin Ql (U)NegativeNormalNEGATIVEThe [facility] Comment on above:Performed By: #### ERUR ####[facility] Zxfaxdqfmx[address] [place], [place] [address]Dr. Yilan ChangKetones Ql (U)NegativeNormal NEGATIVEThe [facility]kley HospitalComment on above:Performed By: #### ERUR ####[facility] Dkrutceufw[address] [place], [place] [address]Dr. Yilan ChangLEUKOCYTESNegativeNormalNEGATIVEThe Berkley HospitalComment on above:Performed By: #### ERUR ####[facility] Rgfhwhgaqo512[address] [place], [place] [address]Dr. Yilan ChangNitrite Ql (U)NegativeNormalNEGATIVEThe Berkley HospitalComment on above:Performed By: #### ERUR ####[facility] Sbtcepdtcd486[address] [place], [place] [address]Dr. Soniya ChangpH (U)5.0 [pH] Normal5-9The Berkley HospitalComment on above:Performed By: #### ERUR ####[facility] Dfayejcdyv78[address] [place], [place] [address]Dr. Soniya ChiSPEC GRAVITY1.052Ktjyxp5.005-<=1.025The Berkley HospitalComment on above:Performed By: #### ERUR ####[facility] Szbnpamzsl2340[address] [place], [place] [address]Dr. Yilan AlonUA PROTEINNegativeNormalNEGATIVE/ TRACE The Berkley HospitalComment on above:Performed By: #### ERUR ####[facility] Agoghsurmo68[address] [place], [place] [address]Dr. Soniya ChiUR MICRO INDNOT INDICATEDNormalThe Berkley HospitalComment on above:Performed By: #### ERUR ####[facility] Jhufgcnxzs879[address] [place], [place] [address]Dr. Gypsylan ChangUrobilinogen Qn (U)0.2 {Casimiro'U}/dLNormal0.2 - 1.0The [facility] City HospitalComment on above:Performed By: #### ERUR ####[facility] Rxkxkhhmyb858[address] [place], [place] [address]Dr. Yilan ChangETHANOL (BLD ALC)on 95-74-8751CLB NOTENOTE: 80 mg/dl is the legal limit for a blood alcohol levelNoGeorgetown Behavioral HospitalComment on above:Performed By: #### REMI PABLO, ETH ####[facility] Damjmjgwhj3885[address] [place], [place] [address]Dr. Yilan ChangEthanol [Mass/Vol]mg/dLNoGeorgetown Behavioral HospitalComment on above:Performed By: #### REMI PABLO, ETH ####[facility] Mbwqawvkmm717[address] [place], [place] [address]Dr. Yilan ChangFREE T3on 79-60-9638FZHH T3 2.81 pg/mlLNormal2.18-3.98The [facility] HospitalComment on above:Performed By: #### FT3 ####[facility] Pgpqgtjlgl267[address] [place], [place] [address]Dr.Yilan ChangLACTATE/LACTIC ACIDon 21-67-2247Hvamvtu [Moles/Vol]0.6 mmol/L Normal0.4-2.0The [facility] HospitalComment on above:Performed By: #### LACT ####[facility] Uccxiywtpx6964[address] [place], [place] [address]Dr. Yilan ChangPROF 14(COMP METB)on 60-42-1332Sqsplec [Mass/Vol]3.4 g/dLNormal 3.4-5.0The [facility] HospitalComment on above:Performed By: #### TSH, CMP, BNP, CMADM ####[facility] Uvqdxdemgq095[address] [place], [place] [address]Dr. Yilan ChangAlbumin/Globulin [Mass ratio]0.9 {ratio}NormalThe [facility] HospitalComment on above:Performed By: #### TSH, CMP, BNP, CMADM ####[facility] Qlkvsbrjek517[address] [place], [place] [address]Dr. Yilan ChangALP [Catalytic activity/Vol]113 U/ZDpufnv70-635Ese [facility] HospitalComment on above:Performed By: #### TSH, CMP, BNP, CMADM ####[facility] [address] [place] [address]Dr. Yilan ChangALT [Catalytic activity/Vol]37 U/KZitvlx04-03Kfj [facility] HospitalComment on above:Performed By: #### TSH, CMP, BNP, CMADM ####[facility] Yzdzfnckdq[address] [place] [address]Dr. Yilan ChangAnion gap [Moles/Vol]11.6 mmol/LNormal The [facility] HospitalComment on above:Performed By: #### TSH, CMP, BNP, CMADM ####[facility] Eflvalqfwp363[address] [place], [place] [address]Dr. Yilan ChangAST [Catalytic activity/Vol]19 U/OUnknon82-38Xla [facility] Comment on above:Performed By: #### TSH, CMP, BNP, CMADM ####[facility] Rfdqpwynev0650[address] [place], [place] [address]Dr. Yilan ChangBilirubin [Mass/Vol]0.4 mg/dLNormal0.2-1.0The [facility] on above:Performed By: #### TSH, CMP, BNP, CMADM ####[facility] Midcguhnum799[address] [place], [place] [address]Dr. Yilan ChangCalcium [Mass/Vol]10.1 mg/dLNormal 8.5-10.1The [facility] HospitalComtr[facility] on above:Performed By: #### TSH, CMP, BNP, CMADM ####[facility] Onldyuvvuq3967[address] [place], [place] [address]Dr. Yilan ChangChloride [Moles/Vol]107 mmol/BUugagd49-510Mon [facility] HospitalComment on above:Performed By: #### TSH, CMP, BNP, CMADM ####[facility] Kqcmaxykzy238[address] [place], [place] [address]Dr. Yilan ChangCO2 [Moles/Vol]29.9 mmol/IWizagy16.0-32.0The [facility] on above: Performed By: #### TSH, CMP, BNP, CMADM ####[facility] Tqgtwjqvbu764[address] [place], [place] [address]Dr. Yilan ChangCreatinine [Mass/Vol]1.11 mg/dLCritically high0.55-1.02The [facility] HospitalComment on above:Performed By: #### TSH, CMP, BNP, CMADM ####[facility] Sfheydiawo[address] [place], [place] [address]Dr. Yilan ChangEGFR-AF ZJCLKOLP39 mL/min/1.73m2 Critically low>=60The [facility] on above:Performed By: #### TSH, CMP, BNP, CMADM ####[facility] Xxtaqzdudu4438[address] [place], [place] [address]Dr. Yilan ChangEGFR-NON AF YPVJWGLD73 mL/min/1.40k6Rjmvbdxqse low>=60 The [facility] HospitalComtr[facility] on above:Performed By: #### TSH, CMP, BNP, CMADM ####[facility] Nsbeklyjln246[address] [place], [place] [address]Dr. Yilan ChangGlobulin (S) [Mass/Vol]4.0 g/dLNormalThe [facility] HospitalComtrinity health [facility] hospital on above:Performed By: #### TSH, CMP, BNP, CMADM ####[facility] Fkprglvycw046[address] [place], [place] [address]Dr. Yilan ChangGlucose [Mass/Vol]89 mg/uKCwpslh73-896Jds [facility] on above:Performed By: #### TSH, CMP, BNP, CMADM ####[facility] Xfpakpihug8[address] [place], [place] [address]Dr. Yilan ChangPotassium [Moles/Vol]4.5 mmol/LNormal 3.5-5.1The [facility] on above:Performed By: #### TSH, CMP, BNP, CMADM ####[facility] Uiubvveiyv2964[address] [place], [place] [address]Dr. Yilan ChangProtein [Mass/Vol]7.4 g/dLNormal6.4-8.2The [facility] Comment on above:Performed By: #### TSH, CMP, BNP, CMADM ####[facility] G[address]weglxbq[address] [place] [address]Dr. Yilan ChangSodium [Moles/Vol]144 mmol/IKnpeew257-522Mgn [facility] HospitalComment on above: Performed By: #### TSH, CMP, BNP, CMADM ####[facility] Fsapsgigdh4523[address] [place], [place] [address]Dr. Yilan ChangUrea nitrogen [Mass/Vol]19.0 mg/dLCritically high7.0-18.0The [facility] HospitalComment on above:Performed By: #### TSH, CMP, BNP, CMADM ####[facility] Ldxkayyvdi3827[address] [place], [place] [address]Dr. Gypsylan ChangUrea nitrogen/Creatinine [Mass ratio] 17.1 mg/mgNoGeorgetown Behavioral HospitalComment on above:Performed By: #### TSH, CMP, BNP, CMADM ####[facility] Ayirquuesm5[address] [place], [place] [address]Dr. Soniya ChangPROTIMEon 48-06-8102GQH Coag (PPP) [Relative time]1.01 {INR}NormalThe [facility] HospitalComment on above:Performed By: #### PT, PTT ####[facility] Zyynxxkyce564[address] [place], [place] [address]Dr. Soniya ChiINR GUIDELINESSEE BELOWMetroHealth Parma Medical CenterComment on above: Result Comment: DESIRED INR: 2.0 - 3.0 CONDITIONS NOT LISTED BELOW 2.5 - 3.5 FOR PROSTHETIC HEART VALVE REPLACEMENT 2.5 - 3.5 RECURRENT THROMBOSISPerformed By: #### PT, PTT ####[facility] Caxxwnrgxc48[address] [place], [place] [address]Dr. Soniya ChiPT Coag (PPP) [Time]10.7 sNormal9.0-11.6The [facility] HospitalComment on above:Performed By: #### PT, PTT ####[facility] Ypcjcimdgo8722[address] [place], [place] [address]Dr. Soniya ChiPTTon 43-11-7092hEPD Coag (Bld) [Time]36.7 sCritically high22.3-36.2The [facility] HospitalComment on above:Performed By: #### PT, PTT ####[facility] [address]asrccec[address] [place] [address]Dr. Soniya ChangSALICYLATEon 76-79-9311QCFHCARJOL<2.8Normal<=19.9The [facility] HospitalComment on above: Performed By: #### SALYC, ACET, ETH ####[facility] Fnzwdatfeh[address] [place] [address]Dr. Soniya ChangSYMPTOMATIC COVID-19 ANTIGENon 88-74-0266SMY StatementSEE BELOWNoalThe [facility] HospitalComment on above: Result Comment: This test has [...] declaration is terminated or authorization is revoked sooner.Performed By: #### CVDAGS ####[facility] Mrlylgbtgt[address] [place] [address]Dr. Soniya ChiBuybrGMYR-IkV-8 (COVID-19) RNA DORIAN+probe Ql (Unsp spec)Negative NormalNEGATIVEThe [facility] HospitalComment on above:Performed By: #### CVDAGS ####[facility] P[address]uenxrli[address] [place] [address]Dr. Soniya ChiT4on 57-92-5376Z3 [Mass/Vol]13.20 ug/dLNormal4.80-13.90The [facility] HospitalComment on above:Performed By: #### T4 ####[facility] Fkvmxityvf[address] [place] [address]Dr. Soniya ChangTSHon 59-89-5554QKD1.188 uIU/mLCritically low0.358-3.740[facility] Memorial HospitalComment on above:Performed By: #### TSH, CMP, BNP, CMADM ####[facility] Alaeblewkf[address] [place] [address]Dr. Yilan ChangXR CHEST 1 Von 45-27-2448MH CHEST 1 VNormalThe [facility] AUTO DIFFon 96-64-2267EKKE #0.0 103/ulNormal0.0-0.1The [facility] HospitalComment on above:Performed By: #### CBC ####[facility] Ajlzjcpspb[address] [place], [place] [address]Dr.Gypsyjuan ChangBasophils/100 WBC (Bld)0.4 %Normal0.2-2.0The [facility] HospitalComment on above:Performed By: #### CBC ####[facility] Uwqpewcdzw0300[address] [place], [place] [address]Dr.Yilan ChangEO #0.1 103/ul Normal0.0-0.7The [facility] HospitalComment on above:Performed By: #### CBC ####[facility] Zlklsqcpao209[address] [place], [place] [address]Dr. Gypsylan ChangEosinophils/100 WBC (Bld)1.7 %Normal0.9-7.0The [facility] Comment on above:Performed By: #### CBC ####[facility] Qqfeaetfhf470[address] [place], [place] [address]Dr.Gypsylan ChangErythrocyte distribution width (RBC) [Ratio]15.9 %Critically high11.0-15.0The [facility] HospitalComment on above:Performed By: #### CBC ####[facility] Ckprdhhgdm185[address] [place], [place] [address]Dr.Gypsyjuan ChangHematocrit (Bld) [Volume fraction]30.6 % Critically low36.0-48.0The [facility] HospitalComment on above:Performed By: #### CBC ####[facility] Fjlmtvqzke[address] [place] [address]Dr. Soniya ChangHemoglobin (Bld) [Mass/Vol]9.9 g/dLCritically low12.0-16.0The [facility] HospitalComment on above:Performed By: #### CBC ####[facility] Hbnneqnefa274[address] [place], [place] [address]Dr.Gypsylan ChangIG #0.01 10e3/ulNormal0.00-0.03The [facility] HospitalComment on above:Performed By: #### CBC ####[facility] Pkjplrgrad377[address] [place], [place] [address]Dr. Soniya ChangIG %0.2 %Normal0.0-0.5The [facility] HospitalComment on above:Performed By: #### CBC ####[facility] Nvibofkahz9045[address] [place], [place] [address]Dr.Soniya ChangLYMPH #1.2 103/ulNormal1.2-3.8The [facility] Comment on above:Performed By: #### CBC ####[facility] Hbpzqagnlx0705[address] [place], [place] [address]Dr.Gypsyjuan ChiLymphocytes/100 WBC (Bld)22.4 %Majfds32.5-60.0The [facility] HospitalComment on above:Performed By: #### CBC ####[facility] Pawcxgvmps470[address] [place], [place] [address]Dr. Gypsyjuan ChiMANUAL DIFF REQNONormalThe [facility] HospitalComment on above: Performed By: #### CBC ####[facility] Mhtonvufeq6822[address] [place], [place] [address]Dr.Soniya ChiMCH (RBC) [Entitic mass]30.9 pgNormal 26.7-34.0The [facility] HospitalComment on above:Performed By: #### CBC ####[facility] Hwhixkeled919[address] [place], [place] [address]Dr. Soniya ChiMCHC (RBC) [Mass/Vol]32.4 g/zERansxf33.9-35.2The [facility] Comment on above:Performed By: #### CBC ####[facility] Vlchsvrsap627[address] [place], [place] [address]Dr.Soniya ChiMCV (RBC) [Entitic vol]95.6 fL Avwupq56.0-99.0The [facility] HospitalComment on above:Performed By: #### CBC ####[facility] Jmvlyvspfo8945[address] [place], [place] [address]Dr. Soniya AlonMONO #0.4 103/ulNormal0.3-0.8The Berkley HospitalComment on above: Performed By: #### CBC ####[facility] Ngvzbprklj707[address] [place], [place] [address]Dr.Gypsyjuan AlonMonocytes/100 WBC (Bld)6.9 %Normal 1.7-12.0The [facility] HospitalComment on above:Performed By: #### CBC ####[facility] Ldwidvnlxo3399[address] [place], [place] [address]Dr. Soniya ChiNEUT #3.6 103/ulNormal1.4-6.5The Berkley HospitalComment on above: Performed By: #### CBC ####[facility] Hrbguegbod0036[address] [place], [place] [address]Dr.Soniya ChiNeutrophils/100 WBC (Bld)68.4 %Normal 43.0-75.0The [facility] HospitalComment on above:Performed By: #### CBC ####[facility] Rftnunybqm036[address] [place], [place] [address]Dr. Gypsyjuan ChiPlatelet mean volume (Bld) [Entitic vol]9.5 fLNormal9.5-13.5The [facility] HospitalComment on above:Performed By: #### CBC ####[facility] Plvtwjqmga460[address] [place], [place] [address]Dr.Soniya ChiPLT219 103/ul Qoedcx822-025Prl [facility] HospitalComment on above:Performed By: #### CBC ####[facility] Qqgpgdalcs076[address] [place], [place] [address]Dr. Soniya ChiRBC3.20 106/ulCritically low4.20-5.40The [facility] HospitalComment on above:Performed By: #### CBC ####[facility] Xijltadvwp659[address] [place], [place] [address]Dr.Yijuan ChangWBC5.2 103/ulNormal4.0-11.0The [facility] HospitalComment on above:Performed By: #### CBC ####[facility] Xnzfxrwnvb0168[address] [place], [place] [address]Dr.Soniya ChangPROF CHEM 8 (BAS METB)on 55-52-6179Ojngx gap [Moles/Vol]10.5 mmol/LNormalThe [facility] HospitalComment on above:Performed By: #### BMP ####[facility] Nkozgkykwb9850[address] [place], [place] [address]Dr.Soniya ChangCalcium [Mass/Vol]10.1 mg/dLNormal8.5-10.1The [facility] HospitalComment on above: Performed By: #### BMP ####[facility] Vgxfghxpep2301[address] [place], [place] [address]Dr.Gypsylan ChangChloride [Moles/Vol]107 mmol/LNormal 98-107The [facility] HospitalComment on above:Performed By: #### BMP ####[facility] Emfiqqgfwl5722[address] [place], [place] [address]Dr.Yilan ChangCO2 [Moles/Vol]29.9 mmol/FFeagtm93.0-32.0The [facility] HospitalComment on above: Performed By: #### BMP ####[facility] Kzaqkaxdpy935[address] [place], [place] [address]Dr.Soniya ChangCreatinine [Mass/Vol]1.27 mg/dL Critically high0.55-1.02The [facility] HospitalComment on above:Performed By: #### BMP ####[facility] Xkphktueax425[address] [place], [place] [address]Dr.Yilan ChangEGFR-AF OSCLWHEY90 mL/min/1.36t0Owbxfnrqor low>=60The [facility] HospitalComment on above:Performed By: #### BMP ####[facility] [address]uv[address]se[address] [place] [address]Dr.Soniya ChangEGFR-NON AF AFLWTMWW23 mL/min/1.30c2Cpxdpcvxoi low>=60The [facility] HospitalComtrinity health [facility] hospital on above: Performed By: #### BMP ####[facility] Cxnyxaauqn[address] [place] [address]Dr.Soniya ChangGlucose [Mass/Vol]92 mg/pVDniusa34-304 The [facility] HospitalComment on above:Performed By: #### BMP ####[facility] Gnxhgtnsxv40[address] [place] [address]Dr.Soniya Chi Potassium [Moles/Vol]4.4 mmol/LNormal3.5-5.1The [facility] HospitalComment on above:Performed By: #### BMP ####[facility] Ivoujbtcse[address] [place], [place] [address]Dr.Gypsyjuan ChangSodium [Moles/Vol]143 mmol/LNormal 136-145The [facility] HospitalComment on above:Performed By: #### BMP ####[facility] Respuvfnke744[address] [place], [place] [address]Dr.Soniya ChangUrea nitrogen [Mass/Vol]28.0 mg/dLCritically high7.0-18.0The [facility] HospitalComment on above:Performed By: #### BMP ####[facility] Xuqpnhwycz3865[address] [place], [place] [address]Dr.Soniya ChangUrea nitrogen/Creatinine [Mass ratio] 22.0 mg/mgNormalThe [facility] HospitalComment on above:Performed By: #### BMP ####[facility] Kcqovqkhuo48[address] [place], [place] [address]Dr. Soniya ChangBasic Metabolic Panelon 83-22-9800Avykj gap [Moles/Vol]11 mmol/L9 - 17 mmol/LBON [facility]OURS MERCY HEALTHCalcium [Mass/Vol]10.0 mg/dL8.6 - 10.4 mg/dLBON SECOURS MERCY HEALTHChloride [Moles/Vol]105 mmol/L98 - 107 mmol/LBON [facility]OURS MERCY HEALTHCO2 [Moles/Vol]28 mmol/L20 - 31 mmol/LBON [facility] Creatinine [Mass/Vol]1.06 mg/dLHigh0.50 - 0.90 mg/dLBON [facility] GFR/1.73 sq M.predicted MDRD (S/P/Bld) [Vol rate/Area]58 mL/min/{1.73_m2}Low- PINFBON MERCY [facility] ST. [facility]IZAB[facility] YOUNGSTOWN HOSPITALComment on above: These results are not intended [...] therapy that affects renal tubular secretion. Glucose [Mass/Vol]89 mg/dL70 - 99 mg/dLBON [facility] HOSPITALInterpretation and review of laboratory resultsAbnormalBON [facility] HOSPITALPotassium [Moles/Vol]4.2 mmol/L3.7 - 5.3 mmol/LBON [facility] HOSPITALSodium [Moles/Vol] 144 mmol/L135 - 144 mmol/LBON [facility] HOSPITALUrea nitrogen [Mass/Vol]18 mg/dL8 - 23 mg/dLBON [facility] HOSPITALUrea nitrogen/Creatinine (Bld) [Mass ratio]179 - 20BON [facility] HOSPITALBasic Metabolic Profon 77-43-9662Akemp gap [Moles/Vol]11 mmol/LNormal9-17Fire[facility] Regional Medical CenterComment on above:Performed By: #### BMP, TSH #### [facility] [address] [place] [address] [employer] Winder: Kayley Doll MDBUN/CRE Owiwj07Nhhwml0-54Woovl [facility] Comment on above:Performed By: #### SHANE, TSH #### [facility] [address] [place] [address] [employer] Winder: DAVIS Greenealcium [Mass/Vol]10.0 mg/dLNormal8.6-10.4Fire[facility] Regional Medical CenterComment on above:Performed By: #### BMP, TSH #### [address] [place], [place] [id number] [employer] Winder: DAVIS Greenehloride [Moles/Vol]105 mmol/ELhouob52-211XsvokFirelands Regional Medical CenterComment on above:Performed By: #### BMP, TSH #### [facility] [address] [place], [place] [id number] [employer] Winder: Kayley Doll MDCO2 [Moles/Vol]28 mmol/TPvsicx12-77Bvsua [facility]iff[facility] HospitalComment on above:Performed By: #### BMP, TSH #### [address] [place] [address] [employer] Winder: DAVIS Greenereatinine [Mass/Vol]1.06 mg/dLHigh0.50-0.90Fire[facility] Medical CenterComment on above:Performed By: #### BMP, TSH #### [address] [place] [address] [employer] Winder: Kayley Doll MDGFR/1.73 sq M.predicted among non-blacks MDRD (S/P/Bld) [Vol rate/Area]58 mL/min/{1.73_m2}Low>60[facility] Hartford HospitalComment on above:Result Comment: These results are not intended for [...] or following therapy that affects renal tubular secretion.Performed By: #### BMP, TSH #### [address] [place] [address] [employer] Winder: Kayley Doll MDGlucose [Mass/Vol]89 mg/nGPydmxe82-51Lsuxx Spangle HospitalComment on above:Performed By: #### BMP, TSH #### [address] [place] [address] [employer] Winder: MOHAN Greeneotassium [Moles/Vol]4.2 mmol/LNormal3.7-5.3MTriHealth McCullough-Hyde Memorial HospitalComment on above:Performed By: #### BMP, TSH #### [address] [place] [address] [employer] Winder: LIZ Greeneodium [Moles/Vol]144 mmol/AXtruzv473-262EuhfyFirelands Regional Medical CenterComment on above:Performed By: #### BMP, TSH #### [address] [place] [address] [employer] Winder: Kayley Doll MDUrea nitrogen [Mass/Vol]18 mg/dLNormal8-23Firelands Regional Medical CenterComment on above:Performed By: #### BMP, TSH #### [address] [place] [address] [employer] Winder: Ines Greene,Urineon [id number],UrineSpecimen Description .CLEAN CATCH URINE Culture NO SIGNIFICANT GROWTH Report Status FINAL 08/26/2022NormalFirelands Regional Medical CenterComment on above: Performed By: #### URC #### [address] [address] [employer] Icer Element Winder: Jersey Dahl MD [address] [place] [address] De [employer] Winder: Kayley Doll MDNo Panel Informationon [id number] [facility] HOSPITALTSHon 18-41-1264QOJ Qn3.78 m[IU]/LBON [facility] HOSPITALThyroid Stim. Horm.on 02-15-4305Vhcrraf Stim. Horm.3.78 uIU/mLNormal0.30-5.00Fire[facility] Regional Medical CenterComment on above:Performed By: #### BMP, TSH #### [facility] [address] [place] [address] De Icer Element Winder: Kayley Doll MDUrinagustinison 94-67-4915Rmhddhjkg UrineNegative NEGATIVEBON [facility] HOSPITALColor, UAYellowYellowBON [facility] Glucose Auto test strip (U) [Mass/Vol]NegativeNEGATIVEBON [facility] Interpretation and review of laboratory resultsAbnormalBON [facility] Ketones (U) [Mass/Vol]NegativeNEGATIVEBON [facility] HOSPITALLeukocyte esterase Auto test strip Ql (U)NegativeNEGATIVEBON [facility] HOSPITALNitrite Auto test strip Ql (U)NegativeNEGATIVEBON [facility] HEALTHProtein (U) [Mass/Vol]7.0 mg/dL5.0 - 9.0BON [facility] HEALTHProtein (U) [Mass/Vol]NegativeNEGATIVEBON [facility]ITALSpecific [place], UALow1.010 - 1.020BON [facility] Turbidity UAClearClearBON MER[facility] ST[facility] YOUNGSTOWN HOSPITALUrine HgbNegativeNEGATIVEBON [facility] HOSPITALUrobilinogen, UrineNormalNormalBON [facility] SIOUX FALLSUrinalysis, Routineon 42-62-3648Pgnjimewu, SemiQt,UrNegative NormalNEGFirelands Regional Medical CenterComment on above:Performed By: #### UA #### [facility] [address] [place], [place] [id number] De Icer Element Winder: Ashlee Greene, UrineNegativeNormalL[facility] Comment on above:Performed By: #### UA #### [facility] [address] [place] [address] De Icer Element Winder: DAVIS Greenelarity (U)ClearNoalCAdena Health System Comment on above:Performed By: #### UA #### [facility] [address] [place] [address] De Icer Element Winder: Kayley Sturtz, MDColor (U)YellowNormalYELMercy Spangle Hospital Comment on above:Performed By: #### UA #### [facility] [address] [place] [address] Dr. [place], [place] [address] De Icer Element Winder: Kayley Doll MDGlucose Ql (U)NegativeNormalNEGFirelands Regional Medical CenterComment on above:Performed By: #### UA #### [facility] [address] [place] [address] Dr. [place], [facility] De Icer Element Winder: Kayley Doll MDKetones Ql (U)NegativeNormalNEGFirelands Regional Medical CenterComment on above:Performed By: #### UA #### [address] [place], [facility] De Icer Element Winder: Kayley Doll MDLeukocyte esterase Test strip Ql (U)NegativeNormal NEGFirelands Regional Medical CenterComment on above:Performed By: #### UA #### [facility] [address] [place] [address] Dr. [place], [facility] De Icer Element Winder: Kayley Doll MDNitrite,UrNegativeNormalNEGFirelands Regional Medical Center Comment on above:Performed By: #### UA #### [facility] [address] [place] [address] Dr. [place], [place] [id number] [employer] Winder: MOHAN Greene,Ur7.5Nlrsnv0.0-9.0MerBridgeport HospitalComment on above:Performed By: #### UA #### [facility] [address] [place] [address] [place] [address] De [employer]cer [employer] Winder: MOHAN Greenerotein Ql (U)NegativeNormalNEGFirelands Regional Medical CenterComment on above:Performed By: #### UA #### [facility] [address] [place] [address] Dr. [place], [place] [id number] [employer] Winder: LIZ Greenepec. [place],Ur<1.396Lod8.010-1.020Mercy Spangle HospitalComment on above:Performed By: #### UA #### [facility] [address] [place], [place] [id number] De [employer] Winder: Real GreeneUrNormalNormalNORMMerBridgeport HospitalComment on above:Performed By: #### UA #### [facility] [address] [place] [address] De Icer Element Winder: NEREIDA Greene AUTO DIFFon [id number] #0.0 103/ulNormal 0.0-0.1The [facility] HospitalComment on above:Performed By: #### CBC ####[facility] Oflvndypiu[address] [place], [place] [address]Dr.Yilan Chi Basophils/100 WBC (Bld)0.4 %Normal0.2-2.0The [facility] HospitalComment on above: Performed By: #### CBC ####[facility] Wemsevpefr[address] [address] [place], [place] [address]Dr.Yilan ChangEO #0.2 103/ulNormal0.0-0.7The [facility] HospitalComment on above:Performed By: #### CBC ####[facility] Oqsgdnhyrt[address] [place], [place] [address]Dr.Yilan ChangEosinophils/100 WBC (Bld)2.7 %Normal0.9-7.0The [facility] HospitalComtr[facility] on above:Performed By: #### CBC ####[facility] Dpqgozekzh424[address] [place], [place] [address]Dr.Yilan ChangErythrocyte distribution width (RBC) [Ratio]15.1 %Critically high11.0-15.0The [facility] HospitalComment on above:Performed By: #### CBC ####[facility] Qzqxvllqed1113[address] [place], [place] [address]Dr. Yilan ChangHematocrit (Bld) [Volume fraction]24.2 %Critically low36.0-48.0The [facility] HospitalComment on above:Performed By: #### CBC ####[facility] [address] [place] [address]Dr.Soniya ChangHemoglobin (Bld) [Mass/Vol]8.0 g/dLCritically low12.0-16.0The [facility] HospitalComment on above:Performed By: #### CBC ####[facility] Ecfnednubj030[address] [place], [place] [address]Dr.Gypsylan ChangIG #0.03 10e3/ulNormal0.00-0.03The [facility] HospitalComment on above:Performed By: #### CBC ####[facility] Xcfvbesncq634[address] [place], [place] [address]Dr.Gypsyjuan ChangIG %0.5 %Normal 0.0-0.5The [facility] HospitalComment on above:Performed By: #### CBC ####[facility] Xfafcxmtep0670[address] [place], [place] [address]Dr.Soniya ChangLYMPH #1.3 103/ulNormal1.2-3.8The [facility] HospitalComment on above:Performed By: #### CBC ####[facility] Ybdojlabyk45[address] [place], [place] [address]Dr.Gypsyjuan ChiLymphocytes/100 WBC (Bld)23.4 %Xlsdxg57.5-60.0The [facility] HospitalComment on above:Performed By: #### CBC ####[facility] Boojxfhvjy56[address] [place], [place] [address]Dr.Gypsyjuan ChiMANUAL DIFF REQ NONormalThe [facility] HospitalComment on above:Performed By: #### CBC ####[facility] Mphgruwwla9970[address] [place], [place] [address]Dr. Soniya ChiMCH (RBC) [Entitic mass]30.8 ikHkhpdw13.7-34.0The [facility] Comment on above:Performed By: #### CBC ####[facility] Rnzzaoxwxo402[address] [place], [place] [address]Dr.Soniya ChiMCHC (RBC) [Mass/Vol]33.1 g/dL Vgsims16.9-35.2The [facility] HospitalComment on above:Performed By: #### CBC ####[facility] [address] [place] [address]Dr. Soniya ChiMCV (RBC) [Entitic vol]93.1 aVUfrlyl95.0-99.0The [facility] Comment on above:Performed By: #### CBC ####[facility] Geuokgpuqn1765[address] [place], [place] [address]Dr.Soniya ChiMONO #0.6 103/ulNormal0.3-0.8 The [facility] HospitalComment on above:Performed By: #### CBC ####[facility] Snmlffdksu9980[address] [place], [place] [address]Dr.Soniya Chi Monocytes/100 WBC (Bld)10.3 %Normal1.7-12.0The [facility] HospitalComment on above:Performed By: #### CBC ####[facility] Fkqximzxrh494[address] [place], [place] [address]Dr.Soniya ChiNEUT #3.5 103/ulNormal1.4-6.5The [facility] HospitalComment on above:Performed By: #### CBC ####[facility] Goazfdiupw745[address] [place], [place] [address]Dr.Soniya ChiNeutrophils/100 WBC (Bld)62.7 %Qcxjwd71.0-75.0The [facility] HospitalComment on above:Performed By: #### CBC ####[facility] Vpgyqsotjb18119[address] [place], [place] [address]Dr.Soniya ChiPlatelet mean volume (Bld) [Entitic vol]10.6 fLNormal9.5-13.5 The [facility] HospitalComment on above:Performed By: #### CBC ####[facility] Ibrjjurcsr785[address] [place], [place] [address]Dr.Soniya LwyveTNC905 103/ulCritically rhj697-652Fid [facility] HospitalComment on above:Performed By: #### CBC ####[facility] Xgswcfttqk847[address] [place], [place] [address]Dr.Soniya AlonRBC2.60 106/ulCritically low4.20-5.40The [facility] Comment on above:Performed By: #### CBC ####[facility] [address] [place] [address]Dr.Gypsyjuan AlonWBC5.6 103/ulNormal4.0-11.0The [facility] HospitalComment on above:Performed By: #### CBC ####[facility] [address]cjz[address] [place] [address]Dr.Soniya ChiPROF 14(COMP METB)on 61-32-2427Bwdyxni [Mass/Vol]2.3 g/dLCritically low3.4-5.0The [facility] HospitalComment on above:Performed By: #### CMP, TSH ####[facility] Pvzkokwgia466[address] [place], [place] [address]Dr. Soniya Chi Albumin/Globulin [Mass ratio]0.8 {ratio}NormalThe [facility] HospitalComment on above:Performed By: #### CMP, TSH ####[facility] Sbztabxyyz4665[address] [place], [place] [address]Dr. Soniya ChiALP [Catalytic activity/Vol]80 U/L Fmenyi46-637Oht [facility] HospitalComment on above:Performed By: #### CMP, TSH ####[facility] Ulfdobooyf416[address] [place], [place] [address]Dr. Soniya ChiALT [Catalytic activity/Vol]23 U/PWstxso91-62Jsi [facility] Comment on above:Performed By: #### CMP, TSH ####[facility] Sohrcraxru8928[address] [place], [place] [address]Dr. Soniya ChiAnion gap [Moles/Vol]9.7 mmol/LNormalThe [facility] HospitalComment on above:Performed By: #### CMP, TSH ####[facility] Jjxeeblhha212[address] [place], [place] [address]Dr. Soniya ChangAST [Catalytic activity/Vol]20 U/NGdqfuu53-15Kni [facility] HospitalComment on above:Performed By: #### CMP, TSH ####[facility] Ouuhglkkwd898[address] [place], [place] [address]Dr. Soniya Chi Bilirubin [Mass/Vol]0.6 mg/dLNormal0.2-1.0The [facility] HospitalComment on above: Performed By: #### CMP, TSH ####[facility] Adxzwxszqe589[address] [place], [place] [address]Dr. Yilan ChangCalcium [Mass/Vol]8.7 mg/dLNormal 8.5-10.1The [facility] HospitalComment on above:Performed By: #### CMP, TSH ####[facility] Gtrilmjgkf2275[address] [place], [place] [address]Dr. Yilan ChangChloride [Moles/Vol]105 mmol/STwyrdf12-513Kkm [facility] Comment on above:Performed By: #### CMP, TSH ####[facility] Xszufmgfgq795994 [address] [place], [place] [address]Dr. Yilan ChangCO2 [Moles/Vol]30.0 mmol/GQcgysu49.0-32.0The [facility] HospitalComment on above: Performed By: #### CMP, TSH ####[facility] Lotxjakkla9527[address] [place], [place] [address]Dr. Yilan ChangCreatinine [Mass/Vol]0.96 mg/dLNormal 0.55-1.02The [facility] HospitalComment on above:Performed By: #### CMP, TSH ####[facility] Vlmwpdrnok633[address] [place], [place] [address]Dr. Yilan ChangEGFR-AF PALESTINIAN>60Normal>=60The [facility] HospitalComment on above: Performed By: #### CMP, TSH ####[facility] Ejuxfzkkyf088[address] [place], [place] [address]Dr. Yilan ChangEGFR-NON AF HGEHUNJS13 mL/min/1.73m2 Critically low>=60The [facility] HospitalComment on above:Performed By: #### CMP, TSH ####[facility] Wmpksssdjl705[address] [place], [place] [address]Dr. Yilan ChangGlobulin (S) [Mass/Vol]2.8 g/dLNormalThe [facility] HospitalComment on above:Performed By: #### CMP, TSH ####[facility] Dcpmeinydf690594 [address] [place], [place] [address]Dr. Yilan ChangGlucose [Mass/Vol]96 mg/dLNormal 74-106The [facility] HospitalComment on above:Performed By: #### CMP, TSH ####[facility] Igkpkappbl715[address] [place], [place] [address]Dr. Yilan ChangPotassium [Moles/Vol]2.7 mmol/LCritically low3.5-5.1The [facility] HospitalComment on above:Performed By: #### CMP, TSH ####[facility] Iqjxgatyzn618[address] [place], [place] [address]Dr. Yilan ChangProtein [Mass/Vol]5.1 g/dLCritically low6.4-8.2The [facility] HospitalComment on above: Performed By: #### CMP, TSH ####[facility] Amzrxjkizx845[address] [place], [place] [address]Dr. Yilan ChangSodium [Moles/Vol]141 mmol/LNormal 136-145The [facility] HospitalComment on above:Performed By: #### CMP, TSH ####[facility] Yznbuhhvwm216[address] [place], [place] [address]Dr. Yilan ChangUrea nitrogen [Mass/Vol]17.0 mg/dLNormal7.0-18.0The [facility] Comment on above:Performed By: #### CMP, TSH ####[facility] Kmdmpmolxl690[address] [place], [place] [address]Dr. Yilan ChangUrea nitrogen/Creatinine [Mass ratio]17.7 mg/mgNormalThe [facility] HospitalComment on above:Performed By: #### CMP, TSH ####[facility] Drxpulyorb545[address] [place], [place] [address]Dr. Yilan ChangTSHon 74-43-9473MUK8.840 uIU/mLNormal 0.358-3.740The [facility] HospitalComment on above:Performed By: #### CMP, TSH ####[facility] Ojovxpcaek0764[address] [place], [place] [address]Dr. Soniya ChangCBC AUTO DIFFon 16-01-0385ILDG #0.0 103/ulNormal0.0-0.1The [facility] HospitalComment on above:Performed By: #### CBC ####[facility] Xeaedeajkb027[address] [place], [place] [address]Dr.Gypsyjuan ChangBasophils/100 WBC (Bld)0.3 %Normal0.2-2.0The [facility] HospitalComment on above:Performed By: #### CBC ####[facility] Ysrstpteav377994 [address] [place], [place] [address]Dr.Gypsylan ChangEO #0.1 103/ulNormal0.0-0.7The [facility] HospitalComment on above:Performed By: #### CBC ####[facility] Yntsjdmcoz834[address] [place], [place] [address]Dr.Soniya ChangEosinophils/100 WBC (Bld)0.9 %Normal 0.9-7.0The [facility] HospitalComment on above:Performed By: #### CBC ####[facility] Sxmevuvydd325[address] [place], [place] [address]Dr.Soniya Chi Erythrocyte distribution width (RBC) [Ratio]15.1 %Critically high11.0-15.0The [facility] HospitalComment on above:Performed By: #### CBC ####[facility] Mcuasgzkvy715[address] [place], [place] [address]Dr.Soniya ChangHematocrit (Bld) [Volume fraction]27.3 %Critically low36.0-48.0The [facility] HospitalComment on above:Performed By: #### CBC ####[facility] Aereqvzeno1413[address] [place], [place] [address]Dr.Soniya ChangHemoglobin (Bld) [Mass/Vol]8.9 g/dL Critically low12.0-16.0The [facility] HospitalComment on above:Performed By: #### CBC ####[facility] Tsqfhrsbmk974[address] [place], [place] [address]Dr. Soniya ChangIG #0.03 10e3/ulNormal0.00-0.03The [facility] HospitalComment on above: Performed By: #### CBC ####[facility] [address] [place] [address]Dr.Soniya ChiIG %0.5 %Normal0.0-0.5The [facility] HospitalComment on above:Performed By: #### CBC ####[facility] [address]ixn[address] [place] [address]Dr.Soniya ChiLYMPH #1.0 103/ulCritically low1.2-3.8The [facility] HospitalComment on above:Performed By: #### CBC ####[facility] Hwfzzksyry701[address] [place], [place] [address]Dr.Soniya ChiLymphocytes/100 WBC (Bld)14.9 %Critically low20.5-60.0The [facility] HospitalComment on above:Performed By: #### CBC ####[facility] Lmkkvvlbcb314[address] [place], [place] [address]Dr.Soniya ChiMANUAL DIFF REQ NONormalThe [facility] HospitalComment on above:Performed By: #### CBC ####[facility] Zyrbywgcpq9730[address] [place], [place] [address]Dr. Soniya ChiST. [facility] (RBC) [Entitic mass]31.2 ouAghbos85.7-34.0The [facility] Comment on above:Performed By: #### CBC ####[facility] Yqnzkicjdb728[address] [place], [place] [address]Dr.Soniya ChiHC (RBC) [Mass/Vol]32.6 g/dL Mazoje47.9-35.2The [facility] HospitalComment on above:Performed By: #### CBC ####[facility] Erjipuwjoc668[address] [place], [place] [address]Dr. Soniya ChiV (RBC) [Entitic vol]95.8 vNBfzipi41.0-99.0The [facility] Comment on above:Performed By: #### CBC ####[facility] Arvjjhcnzg175[address] [place], [place] [address]Dr.Soniya ChiMONO #0.6 103/ulNormal0.3-0.8 The [facility] HospitalComment on above:Performed By: #### CBC ####[facility] [address]waqiu[address] [place] [address]Dr.Soniya Chi Monocytes/100 WBC (Bld)8.8 %Normal1.7-12.0The [facility]ment on above: Performed By: #### CBC ####[facility] Piyimvhkvj[address] [place] [address]Dr.Soniya hCiNEUT #4.9 103/ulNormal1.4-6.5The [facility] HospitalComment on above:Performed By: #### CBC ####[facility] Udhawbzjxl5[address] [place] [address]Dr.Soniya ChiNeutrophils/100 WBC (Bld)74.6 %Xobaty90.0-75.0The [facility] HospitalComment on above:Performed By: #### CBC ####[facility] Tcvgmywrgr423[address] [place], [place] [address]Dr.Soniya ChiPlatelet mean volume (Bld) [Entitic vol]10.7 fLNormal9.5-13.5 The [facility] HospitalComment on above:Performed By: #### CBC ####[facility] Kdlxztpoxs445[address] [place], [place] [address]Dr.Soniya RwpklNRG944 103/ulCritically htz477-236Xkm [facility] Healthment on above:Performed By: #### CBC ####[facility] Bdhetkrjkn389[address] [place], [place] [address]Dr.Soniya ChangRBC2.85 106/ulCritically low4.20-5.40The [facility] Comment on above:Performed By: #### CBC ####[facility] Trswklsllu12[address] [place], [place] [address]Dr.Soniya ChangWBC6.6 103/ulNormal4.0-11.0The [facility] on above:Performed By: #### CBC ####[facility] Lvradtzcyq185[address] [place], [place] [address]Dr.Soniya ChangPROF 14(COMP METB)on 19-20-1735Lxrbsza [Mass/Vol]2.8 g/dLCritically low3.4-5.0The [facility] HospitalComment on above:Performed By: #### TSH, CMP ####[facility] [address]dbwra[address] [place] [address]Dr. Soniya Chi Albumin/Globulin [Mass ratio]0.8 {ratio}NormalThe [facility] HospitalComtr[facility] on above:Performed By: #### TSH, CMP ####[facility] [address]bujvwmoy[address] [place] [address]Dr. Soniya ChangALP [Catalytic activity/Vol]101 U/L Ryxioh71-881Hfs [facility] HospitalComment on above:Performed By: #### TSH, CMP ####[facility] [address]kzcwnc[address] [place] [address]Dr. Soniya ChangALT [Catalytic activity/Vol]27 U/UPxpxza79-52Wbf [facility] Comment on above:Performed By: #### TSH, CMP ####[facility] Pxaprvnuko5768[address] [place], [place] [address]Dr. Soniya ChiAnion gap [Moles/Vol]15.6 mmol/LNormalThe [facility] HospitalComment on above:Performed By: #### TSH, CMP ####[facility] Aiwjvumebn5317[address] [place], [place] [address]Dr. Soniya ChangAST [Catalytic activity/Vol]23 U/KEqepqv69-05Gks [facility] on above:Performed By: #### TSH, CMP ####[facility] Clkjldpixi0[address] [place], [place] [address]Dr. Soniya Chi Bilirubin [Mass/Vol]0.9 mg/dLNormal0.2-1.0The [facility] HospitalComment on above: Performed By: #### TSH, CMP ####[facility] Vymrkwsego8860[address] [place], [place] [address]Dr. Soniya ChangCalcium [Mass/Vol]9.1 mg/dLNormal 8.5-10.1The [facility] HospitalComment on above:Performed By: #### TSH, CMP ####[facility] Yvvkpdfsma0890[address] [place], [place] [address]Dr. Soniya ChangChloride [Moles/Vol]108 mmol/LCritically teot85-648Ufl [facility] HospitalComment on above:Performed By: #### TSH, CMP ####[facility] Ysfncbgzlf898[address] [place], [place] [address]Dr. Yilan ChangCO2 [Moles/Vol]25.8 mmol/TYqkfgm05.0-32.0The [facility] HospitalComment on above: Performed By: #### TSH, CMP ####[facility] Llkpcbisgo5818[address] [place], [place] [address]Dr. Yilan ChangCreatinine [Mass/Vol]1.01 mg/dLNormal 0.55-1.02The [facility] HospitalComment on above:Performed By: #### TSH, CMP ####[facility] Gsnfzglcrp414[address] [place], [place] [address]Dr. Yilan ChangEGFR-AF PALESTINIAN>60Normal>=60The [facility] HospitalCom[facility] on above: Performed By: #### TSH, CMP ####[facility] Ugolrmvfze981[address] [place], [place] [address]Dr. Yilan ChangEGFR-NON AF DMNNXTKI30 mL/min/1.73m2 Critically low>=60The [facility] HospitalCom[facility] on above:Performed By: #### TSH, CMP ####[facility] Nfrkqudncc376[address] [place], [place] [address]Dr. Yilan ChangGlobulin (S) [Mass/Vol]3.3 g/dLNormalThe [facility] HospitalComtr[facility] on above:Performed By: #### TSH, CMP ####[facility] Zmjwavwtif1775[address] [place], [place] [address]Dr. Yilan ChangGlucose [Mass/Vol]68 mg/dL Critically bed01-738Asy [facility] HospitalComment on above:Performed By: #### TSH, CMP ####[facility] Wkuywncfbr3928[address] [place], [place] [address]Dr. Yilan ChangPotassium [Moles/Vol]3.4 mmol/LCritically low3.5-5.1The [facility] HospitalComment on above:Performed By: #### TSH, CMP ####[facility] Wvrxatmwpd624[address] [place], [place] [address]Dr. Soniya Chi Protein [Mass/Vol]6.1 g/dLCritically low6.4-8.2The [facility] HospitalComment on above:Performed By: #### TSH, CMP ####[facility] Uoqwtllgvb838[address] [place], [place] [address]Dr. Soniya ChiSodium [Moles/Vol]146 mmol/LCritically dsej889-303Uxf [facility] HospitalComment on above:Performed By: #### TSH, CMP ####[facility] Pcyjdiozbi715[address] [place], [place] [address]Dr. Soniya ChangUrea nitrogen [Mass/Vol]21.0 mg/dLCritically high7.0-18.0The [facility] HospitalComment on above:Performed By: #### TSH, CMP ####[facility] Nbcsrngrwy196[address] [place], [place] [address]Dr. Soniya ChiUrea nitrogen/Creatinine [Mass ratio]20.8 mg/mgNormalThe [facility] HospitalComment on above:Performed By: #### TSH, CMP ####[facility] Atiyorzvcj644[address] [place], [place] [address]Dr. Soniya ChiTSHon 85-06-1316MJV3.750 uIU/mL Critically high0.358-3.740The [facility] HospitalCom[facility] on above:Performed By: #### TSH, CMP ####[facility] Ajlwrimlma779[address] [place], [place] [address]Dr. Soniya ChiCBC AUTO DIFFon 60-05-9023QWHA #0.0 103/ulNormal0.0-0.1 The [facility] HospitalCom[facility] on above:Performed By: #### CBC ####[facility] Vsnpliqzlt0360[address] [place], [place] [address]Dr.Soniya Chi Basophils/100 WBC (Bld)0.3 %Normal0.2-2.0The [facility] HospitalComment on above: Performed By: #### CBC ####[facility] Hswpqczlgo1988[address] [place], [place] [address]Dr.Gypsylan ChangEO #0.0 103/ulNormal0.0-0.7The [facility] HospitalComment on above:Performed By: #### CBC ####[facility] Muwvfskpiz622[address] [place], [place] [address]Dr.Yilan ChangEosinophils/100 WBC (Bld)0.6 %Critically low0.9-7.0The [facility] HospitalComment on above: Performed By: #### CBC ####[facility] Eppjlauruv939[address] [place], [place] [address]Dr.Yilan ChangErythrocyte distribution width (RBC) [Ratio]15.5 %Critically high11.0-15.0The [facility] HospitalComment on above: Performed By: #### CBC ####[facility] Kpclnqxtqx8218[address] [place], [place] [address]Dr.Yilan ChangHematocrit (Bld) [Volume fraction]26.7 % Critically low36.0-48.0The [facility] HospitalComment on above:Performed By: #### CBC ####[facility] Nacbdpttkx677[address] [place], [place] [address]Dr. Yilan ChangHemoglobin (Bld) [Mass/Vol]8.7 g/dLCritically low12.0-16.0The [facility] HospitalComment on above:Performed By: #### CBC ####[facility] Shjdjwibhy647[address] [place], [place] [address]Dr.Yilan ChangIG #0.02 10e3/ulNormal0.00-0.03The [facility] HospitalComment on above:Performed By: #### CBC ####[facility] Zjfkzmbnqz7868[address] [place], [place] [address]Dr. Yilan ChangIG %0.3 %Normal0.0-0.5The [facility] HospitalComment on above:Performed By: #### CBC ####[facility] Phmgeigana0160[address] [place], [place] [address]Dr.Yilan ChangLYMPH #0.9 103/ulCritically low1.2-3.8The [facility] HospitalComment on above:Performed By: #### CBC ####[facility] [address]zqhng[address] [place] [address]Dr.Soniya ChiLymphocytes/100 WBC (Bld)12.8 %Critically low20.5-60.0The [facility] HospitalComment on above: Performed By: #### CBC ####[facility] Tzhfqqujoq511[address] [place], [place] [address]Dr.Soniya ChiMANUAL DIFF REQNONormalThe [facility] HospitalComment on above:Performed By: #### CBC ####[facility] Ekqjazopjl4230[address] [place], [place] [address]Dr.Soniya ChiH (RBC) [Entitic mass]30.7 avHhmtvr06.7-34.0The [facility] HospitalComment on above: Performed By: #### CBC ####[facility] Miuklrrtrv027[address] [place], [place] [address]Dr.Soniya ChiHC (RBC) [Mass/Vol]32.6 g/dLNormal 29.9-35.2The [facility] HospitalComment on above:Performed By: #### CBC ####[facility] Qkpmvebqep38[address] [place], [place] [address]Dr. Soniya ChiV (RBC) [Entitic vol]94.3 vZQkfgrb93.0-99.0The [facility] Comment on above:Performed By: #### CBC ####[facility] Vuubbqnetq8715[address] [place], [place] [address]Dr.Soniya ChiMONO #0.6 103/ulNormal0.3-0.8 The [facility] HospitalComment on above:Performed By: #### CBC ####[facility] Pfajizuyky700[address] [place], [place] [address]Dr.Soniya Chi Monocytes/100 WBC (Bld)9.4 %Normal1.7-12.0The [facility] HospitalComment on above: Performed By: #### CBC ####[facility] Muiutcjudg620[address] [place], [place] [address]Dr.Soniya ChiNEUT #5.1 103/ulNormal1.4-6.5The [facility] HospitalComment on above:Performed By: #### CBC ####[facility] [address]htsbtqk[address] [place] [address]Dr.Soniya ChiNeutrophils/100 WBC (Bld)76.6 %Critically high43.0-75.0The [facility] HospitalComment on above: Performed By: #### CBC ####[facility] Mqdmgjcvdz[address] [place] [address]Dr.Soniya ChiPlatelet mean volume (Bld) [Entitic vol] 11.6 fLNormal9.5-13.5The [facility] HospitalComment on above:Performed By: #### CBC ####[facility] Jyzgmttitx[address] [place], [place] [address]Dr. Soniya ChiPLT113 103/ulCritically kpm737-987Wnq [facility] HospitalComment on above:Performed By: #### CBC ####[facility] Yukghondfp138[address] [place], [place] [address]Dr.Soniya AlonRBC2.83 106/ulCritically low4.20-5.40The [facility] HospitalComment on above:Performed By: #### CBC ####[facility] Qawwykqgnp505[address] [place], [place] [address]Dr.Soniya ChiWBC6.6 103/ul Normal4.0-11.0The [facility] HospitalComment on above:Performed By: #### CBC ####[facility] Azeyrwojdf099[address] [place], [place] [address]Dr. Soniya ChiCULTURE URINEon 21-91-5422IBCANHK URINENormalThe [facility] Comment on above:Performed By: #### URCX ####[facility] Slmiqwwomp427[address] [place], [place] [address]Dr. Soniya AlonPROF 14(COMP METB)on 56-69-3381Nweqcjs [Mass/Vol]2.7 g/dLCritically low3.4-5.0[facility] Comment on above:Performed By: #### CMP, TSH ####[facility] Ehsbatagil436[address] [place], [place] [address]Dr. Soniya Chi Albumin/Globulin [Mass ratio]0.9 {ratio}NormalThe [facility] HospitalComment on above:Performed By: #### CMP, TSH ####[facility] [address]grdnxv[address] [place] [address]Dr. Yilan ChangALP [Catalytic activity/Vol]83 U/L Ahpyis27-858Yye [facility] HospitalComment on above:Performed By: #### CMP, TSH ####[facility] F[address]jdqrgda[address] [place] [address]Dr. Yilan ChangALT [Catalytic activity/Vol]29 U/BLpiofc97-76Rsv [facility] Comment on above:Performed By: #### CMP, TSH ####[facility] [address]dtxwwxrq[address] [place] [address]Dr. Yilan ChangAnion gap [Moles/Vol]12.3 mmol/LNormalThe [facility] HospitalComment on above:Performed By: #### CMP, TSH ####[facility] Cqwfxihfnk56[address] [place], [place] [address]Dr. Yilan ChangAST [Catalytic activity/Vol]21 U/ZWdwxbt34-33Exv [facility] HospitalComment on above:Performed By: #### CMP, TSH ####[facility] Efakxriufr7299[address] [place], [place] [address]Dr. Yilan Chi Bilirubin [Mass/Vol]1.2 mg/dLCritically high0.2-1.0The [facility] HospitalComment on above:Performed By: #### CMP, TSH ####[facility] Tyvczdotre959[address] [place], [place] [address]Dr. Yilan ChangCalcium [Mass/Vol]9.3 mg/dLNormal 8.5-10.1The [facility] HospitalComment on above:Performed By: #### CMP, TSH ####[facility] Mdrqoedylj27[address] [place], [place] [address]Dr. Yilan ChangChloride [Moles/Vol]109 mmol/LCritically pjzb60-362Vva [facility] HospitalComment on above:Performed By: #### CMP, TSH ####[facility] Wxijxziqos[address] [place], [place] [address]Dr. Yilan ChangCO2 [Moles/Vol]27.1 mmol/WTmywou55.0-32.0The [facility] HospitalComment on above: Performed By: #### CMP, TSH ####[facility] Pwebyoryhi[address] [place], [place] [address]Dr. Yilan ChangCreatinine [Mass/Vol]1.13 mg/dL Critically high0.55-1.02The [facility] HospitalComment on above:Performed By: #### CMP, TSH ####[facility] Qhhdqrqrcd1823[address] [place], [place] [address]Dr. Yilan ChangEGFR-AF DXZIXQOM61 mL/min/1.67s8Pyxkuqjlia low>=60The [facility] HospitalComment on above:Performed By: #### CMP, TSH ####[facility] Ttitsqkydy[address] [place], [place] [address]Dr. Yilan ChangEGFR- NON AF IVJCEXMX57 mL/min/1.54p9Jcslahrdmk low>=60The [facility] on above:Performed By: #### CMP, TSH ####[facility] Zlbotkwtgo72[address] [place], [place] [address]Dr. Yilan ChangGlobulin (S) [Mass/Vol]3.1 g/dL NormalThe [facility] on above:Performed By: #### CMP, TSH ####[facility] Qnnqdciver259[address] [place], [place] [address]Dr. Yilan ChangGlucose [Mass/Vol]80 mg/jHJsvqvl72-595Dwl [facility] on above:Performed By: #### CMP, TSH ####[facility] Mzlemtzutm69[address] [place], [place] [address]Dr. Yilan ChangPotassium [Moles/Vol]3.4 mmol/L Critically low3.5-5.1The [facility] HospitalComment on above:Performed By: #### CMP, TSH ####[facility] Ydcaxwtwsh9890[address] [place], [place] [address]Dr. Yilan ChangProtein [Mass/Vol]5.8 g/dLCritically low6.4-8.2The [facility] HospitalComment on above:Performed By: #### CMP, TSH ####[facility] [address]ub[address] [place], [place] [address]Sx. Soniya ChangSodium [Moles/Vol]145 mmol/SRpmphx534-713Sba [facility] HospitalComment on above: Performed By: #### CMP, TSH ####[facility] Onbqcajaag36[address] [place], [place] [address]Ic. Soniya ChangUrea nitrogen [Mass/Vol]23.0 mg/dL Critically high7.0-18.0The [facility] HospitalComment on above:Performed By: #### CMP, TSH ####[facility] Ftukvnugtj[address] [place] [id number]. Gypsylan ChangUrea nitrogen/Creatinine [Mass ratio]20.4 mg/mgNoGeorgetown Behavioral HospitalComment on above:Performed By: #### CMP, TSH ####[facility] Abtnqluwdd69[address] [place] [address]Dr. Soniya ChangTSHon 60-91-0492GZC6.050 uIU/mLCritically high0.358-3.740The [facility] HospitalComment on above:Performed By: #### CMP, TSH ####[facility] [address]qolblbm[address] [place] [address]Dr. Soniya ChiUS THYROIDon 03-71-0081PF THYROID NormalThe [facility] HospitalECHOCARDIO M/2D COMPLETEon 36-21-4531NFCJSFEUTQ M/2D COMPLETEMetroHealth Parma Medical CenterPROF 14(COMP METB)on 12-80-3974Tvmmbtj [Mass/Vol]2.8 g/dLCritically low3.4-5.0The [facility] HospitalComment on above: Performed By: #### TSH, CMP ####[facility] Rqtghtmeqc[address] [place] [id number]. Gypsylan ChangAlbumin/Globulin [Mass ratio]0.9 {ratio}NormalThe [facility] HospitalComment on above:Performed By: #### TSH, CMP ####[facility] Elzoylkxgy[address] [place] [address]Dr. Soniya ChiALP [Catalytic activity/Vol]95 U/JLhgqoy69-756Iom [facility] Comment on above:Performed By: #### TSH, CMP ####[facility] Qdkvjqtlwz[address] [place] [address]Dr. Yilan ChangALT [Catalytic activity/Vol]33 U/LGkolev34-43Kse [facility] HospitalComment on above:Performed By: #### TSH, CMP ####[facility] Miaxkmtawk[address] [place] [address]Dr. Yiujan ChangAnion gap [Moles/Vol]13.2 mmol/LNormalThe [facility] HospitalComment on above:Performed By: #### TSH, CMP ####[facility] Cmmidfielj[address] [place], [place] [address]Dr. Yilan ChangAST [Catalytic activity/Vol]25 U/AImmyss78-67Tly [facility] HospitalComment on above:Performed By: #### TSH, CMP ####[facility] Afuegxocia444[address] [place], [place] [address]Dr. Yilan ChangBilirubin [Mass/Vol]1.1 mg/dLCritically high0.2-1.0The [facility] HospitalComment on above:Performed By: #### TSH, CMP ####[facility] Etwdgcawtw9745[address] [place], [place] [address]Dr. Yijuan Chi Calcium [Mass/Vol]9.4 mg/dLNormal8.5-10.1The [facility] HospitalComment on above: Performed By: #### TSH, CMP ####[facility] Zeerkeccpa62[address] [place], [place] [address]Dr. Yilan ChangChloride [Moles/Vol]110 mmol/L Critically sisd57-674Qgq [facility] HospitalComment on above:Performed By: #### TSH, CMP ####[facility] Wiroyehxer018[address] [place], [place] [address]Dr. Yilan ChangCO2 [Moles/Vol]27.9 mmol/JZfemln26.0-32.0The [facility] HospitalComment on above:Performed By: #### TSH, CMP ####[facility] Upjemwnxgp654[address] [place], [place] [address]Dr. Yilan ChangCreatinine [Mass/Vol]1.32 mg/dLCritically high0.55-1.02The [facility] HospitalComment on above:Performed By: #### TSH, CMP ####[facility] Nvpmwknwql9650[address] [place], [place] [address]Dr. Yilan ChangEGFR-AF NNVXTGML88 mL/min/1.73m2 Critically low>=60The [facility] HospitalComment on above:Performed By: #### TSH, CMP ####[facility] Jsgjtbqxuw357[address] [place], [place] [address]Dr. Yilan ChangEGFR-NON AF JPLUKUKO15 mL/min/1.36r9Schaczgfyp low>=60The [facility] HospitalComment on above:Performed By: #### TSH, CMP ####[facility] Erayovpfvo8[address] [place], [place] [address]Dr. Yilan ChangGlobulin (S) [Mass/Vol]3.1 g/dLNormalThe [facility] HospitalComment on above:Performed By: #### TSH, CMP ####[facility] Ocgxjnfkpv8037[address] [place], [place] [address]Dr. Yilan ChangGlucose [Mass/Vol]87 mg/hFDwgllc07-724Sdz [facility] Comment on above:Performed By: #### TSH, CMP ####[facility] Wfbvciabvh849[address] [place], [place] [address]Dr. Yilan ChangPotassium [Moles/Vol]4.1 mmol/LNormal3.5-5.1The [facility] HospitalComment on above: Performed By: #### TSH, CMP ####[facility] Gqxnvhynpi4838[address] [place], [place] [address]Dr. Yilan ChangProtein [Mass/Vol]5.9 g/dLCritically low6.4-8.2The [facility] HospitalComment on above:Performed By: #### TSH, CMP ####[facility] Tvtkzlinhk064[address] [place], [place] [address]Dr. Yilan ChangSodium [Moles/Vol]147 mmol/LCritically hdvj121-828Mga [facility] HospitalComment on above:Performed By: #### TSH, CMP ####[facility] Fkpmcspqfl[address] [place] [address]Dr. Yilan ChangUrea nitrogen [Mass/Vol]21.0 mg/dLCritically high7.0-18.0[facility] HospitalComment on above:Performed By: #### TSH, CMP ####[facility] Xvommdlhlg[address] [place] [address]Dr. Yilan ChangUrea nitrogen/Creatinine [Mass ratio] 15.9 mg/mgNormalThOhioHealth O'Bleness HospitalComment on above:Performed By: #### TSH, CMP ####[facility] Qewgqlwksc66[address] [place] [address]Dr. Yilan ChangTSHon 02-43-2639ACT2.781 uIU/mLCritically high0.358-3.740The [facility] HospitalComment on above:Performed By: #### TSH, CMP ####[facility] Aquzaosxib6420[address] [place], [place] [address]Dr. Soniya ChiCT STROKE HEAD WOon 82-64-3645KJ STROKE HEAD WONormalGrand [facility] Joint [facility] District Memorial HospitalUA RANDOM W/MICROSCOPICon 12-27-7997SLTDBGTAIYCBHMLHTiyowkroTRSE [facility] Comment on above:Performed By: #### UAMIC ####[facility] Zsmmizkjyg1327[address] [place], [place] [address]Dr. Gypsylan ChangBilirubin Ql (U)Negative NormalNEGATIVEGrand Lake Joint Township District Memorial HospitalComment on above:Performed By: #### UAMIC ####[facility] Ebmehrwvao846[address] [place], [place] [address]Dr. Gypsylan ChangCASTNONE SEENNormalNONE SEENGrand [facility] District Memorial HospitalComment on above: Performed By: #### UAMIC ####[facility] Oahghlxafb0010[address] [place], [place] [address]Dr. Gypsylan ChangClarity (U)CLEARNormalCLEARGrand [facility] District Memorial HospitalComment on above:Performed By: #### UAMIC ####[facility] Uppnrwgdej2517[address] [place], [place] [address]Dr. Gypsylan ChangColor (U)RED AbnormalYELLOWThe Justice HospitalComment on above:Performed By: #### UAMIC ####[facility] Bahnbbxakf065[address] [place], [place] [address]Dr. Yilan ChangCrystals LM Nom (Urine sed)NONE SEENNormalNONE SEENGrand [facility] District Memorial HospitalComment on above:Performed By: #### UAMIC ####[facility] Bwiwjbhoyf214[address] [place], [place] [address]Dr. Yilan ChangEpithelial cells LM Ql (Urine sed)NONE SEENNormalNONE SEEN /RAREThe [facility] Comment on above:Performed By: #### UAMIC ####[facility] Nmiifdacid805[address] [place], [place] [address]Dr. Yilan ChangGlucose Ql (U)NegativeNormal NEGATIVEGrand Lake Joint [facility] District Memorial HospitalComment on above:Performed By: #### UAMIC ####[facility] Hpiciimine8622[address] [place], [place] [address]Dr. Yilan ChangHemoglobin Ql (U)LARGEAbnormalNEGATIVEGrand [facility] Joint [facility] District Memorial HospitalComment on above:Performed By: #### UAMIC ####[facility] Wahrdnqtcq632[address] [place], [place] [address]Dr. Yilan ChangKetones Ql (U)40 mg/dlAbnormalNEGATIVE The [facility] HospitalComment on above:Performed By: #### UAMIC ####[facility] Bqbplklzfl1244[address] [place], [place] [address]Dr. Yilan Chi LEUKOCYTESLARGEAbnormalNEGATIVEGrand [facility] Memorial HospitalComment on above:Performed By: #### UAMIC ####[facility] Rutskugzyn[address]119[address] [place], [place] [address]Dr. Yilan ChangMUCOUSNONE SEENNormalNONE SEENGrand [facility] Hospital Comment on above:Performed By: #### UAMIC ####[facility] Wofxsykklh7838[address] [place], [place] [address]Dr. Yilan ChangNitrite Ql (U)Positive AbnormalNEGATIVEGrand Lake Joint [facility] District Memorial HospitalComment on above:Performed By: #### UAMIC ####[facility] Rbcyjcligq3875[address] [place], [place] [address]Dr. Yilan ChangpH (U)5.5 [pH]Normal5-9The [facility] HospitalComment on above: Performed By: #### UAMIC ####[facility] Huhbxsbeur5260[address] [place], [place] [address]Dr. Gypsylan ChangRBC (U) [#/Vol]/uLAbnormal0-2The [facility] HospitalComment on above:Performed By: #### UAMIC ####[facility] Zsxbesbhzg848[address] [place], [place] [address]Dr. Soniya ChangSPEC GRAVITY >=1.084Crdicpzl5.005-<=1.025The [facility] HospitalComment on above:Performed By: #### UAMIC ####[facility] Jrggzaejuz1099[address] [place], [place] [address]Dr. Soniya ChangUA AWQGEJM726 mg/dlAbnormalNEGATIVE/ TRACEThe [facility] HospitalComment on above:Performed By: #### UAMIC ####[facility] Ejudwtffgb620[address] [place], [place] [address]Dr. Soniya ChangUrobilinogen Qn (U)1.0 {Casimiro'U}/dLNormal0.2 - 1.0The [facility] HospitalComment on above: Performed By: #### UAMIC ####[facility] Mwnckixhfd420[address] [place], [place] [address]Dr. Soniya ChangWBC (U) [#/Vol]/uLAbnormalNONE SEENThe [facility] HospitalComment on above:Performed By: #### UAMIC ####[facility] Zlhgqtpqvw6617[address] [place], [place] [address]Dr. Soniya ChangCBC AUTO DIFF on 28-62-4850FXOG #0.0 103/ulNormal0.0-0.1The [facility] HospitalComtr[facility] on above: Performed By: #### CBC ####[facility] Fdmgbisonw534[address] [place], [place] [address]Dr.Soniya ChangBasophils/100 WBC (Bld)0.2 %Normal 0.2-2.0The [facility] HospitalComment on above:Performed By: #### CBC ####[facility] Nowacylpxq348894 [address] [place], [place] [address]Dr.Yilan ChangEO # 0.0 103/ulNormal0.0-0.7The [facility] HospitalComment on above:Performed By: #### CBC ####[facility] Hzwcbtrcsp1422[address] [place], [place] [address]Dr. Yilan ChangEosinophils/100 WBC (Bld)0.6 %Critically low0.9-7.0The [facility] HospitalComment on above:Performed By: #### CBC ####[facility] Ynbmikbgeo409694 [address] [place], [place] [address]Dr.Yilan ChangErythrocyte distribution width (RBC) [Ratio]15.1 %Critically high11.0-15.0The [facility] HospitalComment on above:Performed By: #### CBC ####[facility] Mbrapbioss356594 [address] [place], [place] [address]Dr.Yilan ChangHematocrit (Bld) [Volume fraction]30.0 %Critically low36.0-48.0The [facility] HospitalComment on above:Performed By: #### CBC ####[facility] Pjmzjjvybk977[address] [place], [place] [address]Dr.Yilan ChangHemoglobin (Bld) [Mass/Vol]9.8 g/dL Critically low12.0-16.0The [facility] HospitalComment on above:Performed By: #### CBC ####[facility] Rnegmiweoy249[address] [place], [place] [address]Dr. Yilan ChangIG #0.02 10e3/ulNormal0.00-0.03The [facility] HospitalComment on above: Performed By: #### CBC ####[facility] Qcnwqfqmap412[address] [place], [place] [address]Dr.Yilan ChangIG %0.4 %Normal0.0-0.5The [facility] HospitalComment on above:Performed By: #### CBC ####[facility] Phyakatbmm7720[address] [place], [place] [address]Dr.Yilan ChangLYMPH #0.8 103/ulCritically low1.2-3.8The [facility] HospitalComment on above:Performed By: #### CBC ####[facility] Seckezkqtz1550[address] [place], [place] [address]Dr.Soniya ChiLymphocytes/100 WBC (Bld)16.1 %Critically low20.5-60.0The [facility] HospitalComment on above:Performed By: #### CBC ####[facility] Ohwmpojsnb988[address] [place], [place] [address]Dr.Soniya ChiMANUAL DIFF REQ NONormalThe [facility] HospitalComment on above:Performed By: #### CBC ####[facility] Chsknscxmb2216[address] [place], [place] [address]Dr. Soniya ChiH (RBC) [Entitic mass]30.3 yeUyoydl26.7-34.0The [facility] Comment on above:Performed By: #### CBC ####[facility] Lzfhyfwdnu707[address] [place], [place] [address]Dr.Soniya ChiHC (RBC) [Mass/Vol]32.7 g/dL Ztdkno26.9-35.2The [facility] HospitalComment on above:Performed By: #### CBC ####[facility] Teqematdgo660[address] [place], [place] [address]Dr. Soniya ChiV (RBC) [Entitic vol]92.9 yXIczszh05.0-99.0The [facility] Comment on above:Performed By: #### CBC ####[facility] Njsehegawc5518[address] [place], [place] [address]Dr.Soniya ChiMONO #0.4 103/ulNormal0.3-0.8 The [facility] HospitalComment on above:Performed By: #### CBC ####[facility] Wsbefhkvab886[address] [place], [place] [address]Dr.Gypsyjuan Chi Monocytes/100 WBC (Bld)8.1 %Normal1.7-12.0The [facility] HospitalComment on above: Performed By: #### CBC ####[facility] Japlmtijqn490094 [address] [place], [place] [address]Dr.Yilan ChangNEUT #3.6 103/ulNormal1.4-6.5The [facility] HospitalComment on above:Performed By: #### CBC ####[facility] Rragqndhre869494 [address] [place], [place] [address]Dr.Soniya ChiNeutrophils/100 WBC (Bld)74.6 %Bufffl37.0-75.0The [facility] HospitalComment on above:Performed By: #### CBC ####[facility] Cgzzgruwgj3687[address] [place], [place] [address]Dr.Soniya ChiPlatelet mean volume (Bld) [Entitic vol]10.6 fLNormal9.5-13.5 The [facility] HospitalComment on above:Performed By: #### CBC ####[facility] Hjihudfvdo436[address] [place], [place] [address]Dr.Soniya ChiPLT116 103/ulCritically mnz327-825Mbg [facility] HospitalComment on above:Performed By: #### CBC ####[facility] Gtjzvecgxw8635[address] [place], [place] [address]Dr.Soniya ChiRBC3.23 106/ulCritically low4.20-5.40The [facility] Comment on above:Performed By: #### CBC ####[facility] Cnavzkbxsp157[address] [place], [place] [address]Dr.Soniya ChiWBC4.8 103/ulNormal4.0-11.0The [facility] HospitalComment on above:Performed By: #### CBC ####[facility] Ocqiwbnplo200[address] [place], [place] [address]Dr.Soniya ChiCULTURE URINEon 10-06-3097QLOTJQK URINENormalThe [facility] HospitalComment on above:Performed By: #### URCX ####[facility] Yddesmzrui106[address] [place], [place] [address]Dr. Soniya ChiACETONE SERUMon 20-23-3796OKTARXNQyjkaydlBooncaKUOAUBCXPry [facility] HospitalComment on above:Performed By: #### ACETON ####[facility] Lbmlnxktrk594[address] [place], [place] [address]Dr. Yilan Chi AMMONIAon 09-41-7911Xdlshow (P) [Mass/Vol]ug/dLCritically fmf00-03Vnx [facility] HospitalComment on above:Performed By: #### AMM ####[facility] Svzwqhygro1290[address] [place], [place] [address]Dr.Soniya ChiCBC AUTO DIFFon 11-24-2694QFNT #0.0 103/ulNormal0.0-0.1The [facility] HospitalComment on above: Performed By: #### CBC ####[facility] Cmardsbkdg501[address] [place], [place] [address]Dr.Gypsyjuan ChangBasophils/100 WBC (Bld)0.2 %Normal 0.2-2.0The [facility] HospitalComment on above:Performed By: #### CBC ####[facility] Mhhvrhamik163[address] [place], [place] [address]Dr.Gypsylan ChangEO # 0.1 103/ulNormal0.0-0.7The [facility] HospitalComment on above:Performed By: #### CBC ####[facility] Ghblnavcnc135194 [address] [place], [place] [address]Dr. Soniya ChangEosinophils/100 WBC (Bld)1.0 %Normal0.9-7.0The [facility] Comment on above:Performed By: #### CBC ####[facility] Yerufojlac7585[address] [place], [place] [address]Dr.Gypsyjuan ChangErythrocyte distribution width (RBC) [Ratio]15.3 %Critically high11.0-15.0The [facility] HospitalComment on above:Performed By: #### CBC ####[facility] Bidpgnmeuf1114[address] [place], [place] [address]Dr.Gypsyjuan ChangHematocrit (Bld) [Volume fraction]31.2 % Critically low36.0-48.0The [facility] HospitalComment on above:Performed By: #### CBC ####[facility] Pqxrdvnmcz3737[address] [place], [place] [address]Dr. Gypsyjuan ChangHemoglobin (Bld) [Mass/Vol]10.3 g/dLCritically low12.0-16.0The [facility] HospitalComment on above:Performed By: #### CBC ####[facility] Pvnsjtxpwv8960[address] [place], [place] [address]Dr.Gypsyjuan AlonIG #0.01 10e3/ulNormal0.00-0.03The [facility] HospitalComment on above:Performed By: #### CBC ####[facility] Izdvwnfhid367[address] [place], [place] [address]Dr. Soniya ChiIG %0.2 %Normal0.0-0.5The [facility] HospitalComment on above:Performed By: #### CBC ####[facility] Fyllyjtzaq8685[address] [place], [place] [address]Dr.Soniya ChiLYMPH #0.8 103/ulCritically low1.2-3.8The [facility] HospitalComment on above:Performed By: #### CBC ####[facility] Njgznivfan386[address] [place], [place] [address]Dr.Soniya ChiLymphocytes/100 WBC (Bld)14.5 %Critically low20.5-60.0The [facility] HospitalComment on above: Performed By: #### CBC ####[facility] Extxfxnytp205[address] [place], [place] [address]Dr.Soniya ChiMANUAL DIFF REQNONormalThe [facility] HospitalComment on above:Performed By: #### CBC ####[facility] Fpwwndcidd315[address] [place], [place] [address]Dr.Soniya ChiST. [facility] (RBC) [Entitic mass]30.7 ncFhslxs70.7-34.0The [facility] HospitalComment on above: Performed By: #### CBC ####[facility] Rzqewsgjgk6[address] [place], [place] [address]Dr.Soniya ChiHC (RBC) [Mass/Vol]33.0 g/dLNormal 29.9-35.2The [facility] HospitalComment on above:Performed By: #### CBC ####[facility] Zdpvsvrrsp924[address] [place], [place] [address]Dr. Soniya ChiMCV (RBC) [Entitic vol]93.1 lVZmkqbn37.0-99.0The [facility] Comment on above:Performed By: #### CBC ####[facility] Ihpdgooves8050[address] [place], [place] [address]Dr.Soinya GabrielO #0.3 103/ulNormal0.3-0.8 The [facility] HospitalComment on above:Performed By: #### CBC ####[facility] Bnuikonxsi743[address] [place], [place] [address]DrKarolinaGypsyjuan Chi Monocytes/100 WBC (Bld)5.7 %Normal1.7-12.0The [facility] HospitalComment on above: Performed By: #### CBC ####[facility] Hbcxizbmdv714[address] [place], [place] [address]Dr.Soniya AlonNEUT #4.6 103/ulNormal1.4-6.5The [facility] HospitalComment on above:Performed By: #### CBC ####[facility] Cyezkgkvsi278[address] [place], [place] [address]Dr.Soniya AlonNeutrophils/100 WBC (Bld)78.4 %Critically high43.0-75.0The [facility] HospitalComment on above: Performed By: #### CBC ####[facility] Apninaoqna5925[address] [place], [place] [address]Dr.Soniya ChiPlatelet mean volume (Bld) [Entitic vol] 10.3 fLNormal9.5-13.5The [facility] HospitalComment on above:Performed By: #### CBC ####[facility] Lrmimspyvx788[address] [place], [place] [address]Dr. Soniya ChiPLT123 103/ulCritically ayd420-784Ols [facility] HospitalComment on above:Performed By: #### CBC ####[facility] Wggulfgsvi596[address] [place], [place] [address]DrJimmy ChiRBC3.35 106/ulCritically low4.20-5.40The [facility] HospitalComment on above:Performed By: #### CBC ####[facility] Vvdzmziwed86119[address] [place], [place] [address]Dr.Soniya ChiWBC5.8 103/ul Normal4.0-11.0[facility] HospitalComment on above:Performed By: #### CBC ####[facility] Q[address]xc[address]qy[address] [place] [address]Dr. Soniya ChiCPKon 96-20-7612CZ [Catalytic activity/Vol]32 U/DJdcznw07-962Bck [facility] HospitalComment on above:Performed By: #### TSH, CK, HSTROPN, CMP ####[facility] Rbigsjikod[address] [place] [id number]. Soniya ChiCT STROKE HEAD WOon 01-46-7933XT STROKE HEAD WONormalGrand Lake Joint Township District Memorial HospitalCULTURE BLOODon 95-44-7447Isfvqlkqlst examination of blood, culture Culture Observations: NO GROWTH AT 5 DAYS.NormalThe [facility] HospitalComment on above:Performed By: #### BLDCX1 ####[facility] Qizwpdnpve[address] [place] [address]Dr. Soniya ChiMicroscopic examination of blood, cultureCulture Observations: NO GROWTH AT 5 DAYS.NormalGrand Lake Joint Township District Memorial HospitalComment on above:Performed By: #### BLDCX2 ####[facility] Noyevqjvdy[address] [place] [address]Dr. Soniya ChiCovid-19 PCR ([facility])on 42-70-7772EPJV-CoV-2 (COVID-19) RNA DORIAN+probe Ql (Unsp spec)Not detectedNormalNOT DETECTEDThe [facility] Comment on above:Result Comment: When diagnostic testing is negative, the possibility of a false negative should be considered inthe context of a patient's recent exposures and the presence of clinical signs and sympt omsconsistent with SARS-CoV-2.This test is not yet approved or cleared by the [place] FDA. When there are no FDA-approved or cleared tests available, and other criteria are met, FDA can make tests available under an emergency access mechanism called an Emergency Use Authorization (EUA). The EUA for this test is supported by the [place] of Health and Human Service's declaration that circumstances exist to justify the emergency use of in vitro diagnostics for the detection and/or diagnosis of the virus that causes COVID-19. This EUA will remain in effect for the duration of the COVID-19declaration justifying emergency of IVDs, unless it is terminated or revoked by the FDA (after which the test may no longer be used).Performed By: #### CVDTBH ####[facility] Bmddgvrmlb9067[address] [place], [place] [address]Dr. Soniya ChiDRUG SCREEN RAPID (URINE)on 06-06-2598UETVftzdkaeFbpmgbJBZNVEOIJyb [facility] HospitalComment on above:Performed By: #### ERUR, DRUGRPD ####[facility] Ezbxzhyigr477[address] [place], [place] [address]Dr. Soniya ChiBARNegativeNormalNEGATIVEGrand [facility] Joint [facility] District Memorial HospitalComment on above:Performed By: #### ERUR, DRUGRPD ####[facility] Phxoautnrn503[address] [place], [place] [address]Dr. Soniya ChiBUP NegativeNormalNEGATIVEGrand [facility] District Memorial HospitalComment on above:Performed By: #### ERUR, DRUGRPD ####[facility] Zzcyyqwbni[address] [place], [place] [address]Dr. Soniya ChiBZONegativeNormalNEGATIVEGrand [facility] District Memorial HospitalComment on above:Performed By: #### ERUR, DRUGRPD ####[facility] Tegikeocpe0904[address] [place], [place] [address]Dr. Soniya ChiCOCNegativeNormalNEGATIVEGrand Lake [facility] District Memorial HospitalComment on above:Performed By: #### ERUR, DRUGRPD ####[facility] Myhaobkwzo[address] [place], [place] [address]Dr. Soniya Chi CUT-OFFSSEE BELOWNormalThe [facility] HospitalComment on above:Result Comment: AMP (Amphetamine): 500ng/mL, BAR (Barbituates): 200 ng/mL, BZO (Benzodiazepines): 15 0 ng/mL, BUP (Buprenorphine): 10 ng/mL, MARIAH (Cocaine): 150 ng/mL, mAMP (Methamphetamine): 500 ng/mL, MTD (Methadone): 200 ng/mL, OPI (Opiates): 100 ng/mL, OXY (Oxycodone): 100 ng/mL, PCP (Phencyclidine): 25 ng/mL, PPX (Propoxyphene): 300 ng/mL, THC (Cannabinoids): 50 ng/mL, TCA (Trycyclic Antidepressants): 300 ng/mLPerformed By: #### ERUR, DRUGRPD ####[facility] Bjmlfhhpuh[address] [place], [place] [address]Dr. Soniya ChangDRUG CUT HEADERDRUG CLASS TEST SYSTEM CUT-OFF CONCENTRATIONS ARE FOLLOWS:NormalThe [facility] HospitalComment on above:Performed By: #### ERUR, DRUGRPD ####[facility] Koiwljjwos654[address] [place], [place] [address]Dr. Soniya ChimAMP NegativeNormalNEGATIVEGrand [facility] District Memorial HospitalComment on above:Performed By: #### ERUR, DRUGRPD ####[facility] Qworjlxaod163[address] [place], [place] [address]Dr. Soniya ChangMTDNegativeNormalNEGATIVEGuernsey Memorial Hospital HospitalComment on above:Performed By: #### ERUR, DRUGRPD ####[facility] Rcfjxjpsla[address] [place], [place] [address]Dr. Soniya ChangOPINegativeNormalNEGATIVEGrand Lake Joint Township District Memorial HospitalComment on above:Performed By: #### ERUR, DRUGRPD ####[facility] Aqhvwmevbv9[address] [place], [place] [address]Dr. Soniya ChangOXY NegativeNormalNEGATIVEGuernsey Memorial Hospital HospitalComment on above:Performed By: #### ERUR, DRUGRPD ####[facility] Tatdhsfvoj14[address] [place], [place] [address]Dr. Yijuan ChangPCPNegativeNormalNEGATIVEGuernsey Memorial Hospital HospitalComment on above:Performed By: #### ERUR, DRUGRPD ####[facility] Satddldgmy714[address] [place], [place] [address]Dr. Yijuan ChangPPXNegativeNormalNEGATIVEGuernsey Memorial Hospital HospitalComment on above:Performed By: #### ERUR, DRUGRPD ####[facility] Getldvacae60[address] [place], [place] [address]Dr. Yilan ChangTCA NegativeNormalNEGATIVEGrand Lake Joint Township District Memorial HospitalComment on above:Performed By: #### LUIS DRUGRPD ####[facility] Fsvyoqeixd818[address] [place], [place] [address]Dr. Yilan ChangTHCNegativeNormalNEGATIVEGrand Lake [facility] District Memorial HospitalComment on above:Performed By: #### LUIS DRUGRPD ####[facility] Yighwfdxwr1833[address] [place], [place] [address]Dr. Yilan ChangER URINE PROFILEon 08-16-2022 Bilirubin Ql (U)NegativeNormalNEGATIVEGrand Lake Joint Township District Memorial HospitalComment on above: Performed By: #### LUIS DRUGRPD ####[facility] Athzkclzhs812[address] [place], [place] [address]Dr. Yilan ChangClarity (U)CLEARNormalCLEARGrand Lake Joint Township District Memorial HospitalComment on above:Performed By: #### LUIS DRUGRPD ####[facility] Cdgnzwqnkf644694 [address] [place], [place] [address]Dr. Yilan ChangColor (U)LT. YELLOWNormalYELLOWGrand Lake Joint Township District Memorial HospitalComment on above:Performed By: #### LUIS DRUGRPD ####[facility] Svfhlwiril720[address] [place], [place] [address]Dr. Yilan ChangERUAHDA micrscopic examination will be performed if indicated.NormalThe [facility] HospitalComment on above:Performed By: #### LUIS DRUGRPD ####[facility] Dvjaeqsggy206[address] [place], [place] [address]Dr. Yilan ChangGlucose Ql (U)NegativeNormalNEGATIVEGrand [facility] Hospital Comment on above:Performed By: #### LUIS DRUGRPD ####[facility] Hbhfzryywz2270[address] [place], [place] [address]Dr. Yilan ChangHemoglobin Ql (U)NegativeNormalNEGATIVEGrand Lake Joint Township District Memorial HospitalComment on above:Performed By: #### NONAR, DRUGRPD ####[facility] Jfaojsxtlm037[address] [place], [place] [address]Dr. Yilan ChangKetones Ql (U)NegativeNormalNEGATIVEThe [facility] HospitalComment on above:Performed By: #### LUIS DRUGRPD ####[facility] [address]rmhcmsxl[address] [place] [address]Dr. Soniya Chi LEUKOCYTESNegativeNormalNEGATIVEGuernsey Memorial Hospital HospitalComment on above:Performed By: #### LUIS DRUGRPD ####[facility] Hvmepoqeig[address] [place] [address]Dr. Soniya ChiNitrite Ql (U)NegativeNormalNEGATIVEThe [facility] HospitalComment on above:Performed By: #### LUIS DRUGRPD ####[facility] Wsbxrvtiwa[address] [place] [address]Dr. Gypsyjuan ChangpH (U)7.0 [pH]Normal5-9The [facility] HospitalComment on above:Performed By: #### LUIS DRUGRPD ####[facility] Wifaktftsg4865[address] [place], [place] [address]Dr. Gypsyjuan ChiSPEC GRAVITY1.502Hyibgl1.005-<=1.025The [facility] HospitalComment on above:Performed By: #### LUIS DRUGRPD ####[facility] Pxlbmrchkx284[address] [place], [place] [address]Dr. Gypsyjuan ChiUA PROTEIN NegativeNormalNEGATIVE/ TRACEThe [facility]kley HospitalComment on above:Performed By: #### LUIS DRUGRPD ####[facility] Ysaianyfnh898[address] [place], [place] [address]Dr. Soniya ChiUR MICRO INDNOT INDICATEDNormalThe [facility] HospitalComment on above:Performed By: #### LUIS DRUGRPD ####[facility] Jdbxyrhbpz432[address] [place], [place] [address]Dr. Soniya Chi Urobilinogen Qn (U)0.2 {Casimiro'U}/dLNormal0.2 - 1.0The [facility] HospitalComment on above:Performed By: #### LUIS DRUGRPD ####[facility] Egnepluyry338[address] [place], [place] [address]Dr. Yilan ChangFREE T3on 53-07-4946UUJX T3 2.61 pg/mlLNormal2.18-3.98The [facility] HospitalComment on above:Performed By: #### FT3 ####[facility] Pqrkkqeqlm[address] [place] [address]Dr.Yilan ChangFREE T4on 11-94-5788Zhsa T4 [Mass/Vol]0.82 ng/dLNormal 0.76-1.46The [facility] HospitalComment on above:Performed By: #### FT4 ####[facility] Fushisfjbw6517[address] [place], [place] [address]Dr. Soniya ChangLACTATE/LACTIC ACIDon 76-18-7378Cvfijsf [Moles/Vol]1.1 mmol/LNormal 0.4-2.0The [facility] HospitalComment on above:Performed By: #### LACT ####[facility] Nrgxjtapnm5[address] [place], [place] [address]Dr. Soniya ChangPH VENOUS BLOODon 60-21-7371JVF7 CBVVLU37.3 mmHgCritically high 40.0-52.0The [facility] HospitalComment on above:Performed By: #### PHVEN ####[facility] Exmunwuilb418[address] [place], [place] [address]Dr. Yijuan ChangpH VENOUS7.280Wplrsm1.330-7.430The [facility] HospitalComment on above: Performed By: #### PHVEN ####[facility] Ivykamcpfh1730[address] [place], [place] [address]Dr. Yilan ChangPROF 14(COMP METB)on 40-03-8127Qxdanyt [Mass/Vol]3.6 g/dLNormal3.4-5.0The [facility] HospitalComment on above:Performed By: #### TSH, CK, HSTROPN, CMP ####[facility] Sbnywnkntt6475[address] [place], [place] [address]Dr. Gypsyjuan ChangAlbumin/Globulin [Mass ratio]1.0 {ratio}NormalThe [facility] HospitalComment on above:Performed By: #### TSH, CK, HSTROPN, CMP ####[facility] Mykxqljoso[address] [place] [address]Dr. Yilan ChangALP [Catalytic activity/Vol]115 U/FNgozcv65-056Vws [facility] HospitalComment on above:Performed By: #### TSH, CK, HSTROPN, CMP ####[facility] Gncnngabhr[address] [place] [address]Dr. Yilan ChangALT [Catalytic activity/Vol]48 U/RZjoioh18-03Pqb [facility] HospitalComment on above: Performed By: #### TSH, CK, HSTROPN, CMP ####[facility] Chcqgemzyw5[address] [place] [address]Dr. Yilan ChangAnion gap [Moles/Vol]9.7 mmol/LNormalThe [facility] HospitalComment on above:Performed By: #### TSH, CK, HSTROPN, CMP ####[facility] Tbcwzzhzjg57[address] [place], [place] [address]Dr. Yilan ChangAST [Catalytic activity/Vol]26 U/TWbepif72-54Xvb [facility] HospitalComment on above:Performed By: #### TSH, CK, HSTROPN, CMP ####[facility] Gdtkrladht152[address] [place], [place] [address]Dr. Yilan Chi Bilirubin [Mass/Vol]0.7 mg/dLNormal0.2-1.0The [facility] HospitalComment on above: Performed By: #### TSH, CK, HSTROPN, CMP ####[facility] Lvolsemdfx33[address] [place], [place] [address]Dr. Yilan ChangCalcium [Mass/Vol]10.1 mg/dL Normal8.5-10.1The [facility] HospitalComment on above:Performed By: #### TSH, CK, HSTROPN, CMP ####[facility] Dzsypyxedz112[address] [place], [place] [address]Dr. Yilan ChangChloride [Moles/Vol]104 mmol/CXynchz82-768Ncz [facility] HospitalComment on above:Performed By: #### TSH, CK, HSTROPN, CMP ####[facility] Erpdfkwyqc[address] [place] [address]Dr. Yilan ChangCO2 [Moles/Vol]34.6 mmol/LCritically high21.0-32.0The [facility] HospitalComment on above:Performed By: #### TSH, CK, HSTROPN, CMP ####[facility] Seivygpqvz[address] [place] [address]Dr. Yilan ChangCreatinine [Mass/Vol]1.27 mg/dLCritically high0.55-1.02The [facility] HospitalComment on above:Performed By: #### TSH, CK, HSTROPN, CMP ####[facility] Rvwxadydds417[address] [place], [place] [address]Dr. Yilan ChangEGFR-AF GGKROHWP66 mL/min/1.37v3Ujdbclkmhw low>=60The [facility] HospitalComtrinity health [facility] hospital on above: Performed By: #### TSH, CK, HSTROPN, CMP ####[facility] Nqofsuplxh987[address] [place], [place] [address]Dr. Yilan ChangEGFR-NON AF NAEBXYOK71 mL/min/1.08m4Ycdpbosoeb low>=60The [facility] on above:Performed By: #### TSH, CK, HSTROPN, CMP ####[facility] Rwzxkfxepv16[address] [place], [place] [address]Dr. Yilan ChangGlobulin (S) [Mass/Vol]3.6 g/dLNormal The [facility] HospitalComment on above:Performed By: #### TSH, CK, HSTROPN, CMP ####[facility] Onvakeowpu7944[address] [place], [place] [address]Dr. Yilan ChangGlucose [Mass/Vol]100 mg/yKRjecco04-207Dbd [facility] HospitalComment on above:Performed By: #### TSH, CK, HSTROPN, CMP ####[facility] Hzerouogcl9712[address] [place], [place] [address]Dr. Yilan ChangPotassium [Moles/Vol]4.3 mmol/LNormal3.5-5.1The [facility] HospitalComment on above: Performed By: #### TSH, CK, HSTROPN, CMP ####[facility] Egrjcveqkb[address] [place] [address]Dr. Yilan ChangProtein [Mass/Vol]7.2 g/dL Normal6.4-8.2The [facility] HospitalComment on above:Performed By: #### TSH, CK, HSTROPN, CMP ####[facility] Njywsnvjel4550[address] [place], [place] [address]Dr. Yilan ChangSodium [Moles/Vol]144 mmol/OStawld651-143Utv [facility] HospitalComment on above:Performed By: #### TSH, CK, HSTROPN, CMP ####[facility] Xgcguqbadi[address] [place], [place] [address]Dr. Yilan ChangUrea nitrogen [Mass/Vol]24.0 mg/dLCritically high7.0-18.0The [facility] HospitalComtrinity health oak[facility] hospital on above:Performed By: #### TSH, CK, HSTROPN, CMP ####[facility] Cavtapmgfo8688[address] [place], [place] [address]Dr. Yilan ChangUrea nitrogen/Creatinine [Mass ratio]18.9 mg/mgNormalThe [facility] HospitalComment on above:Performed By: #### TSH, CK, HSTROPN, CMP ####[facility] Yccjtqnbbh62[address] [place], [place] [address]Dr. Soniya ChangPROTIMEon 80-36-4966QXL Coag (PPP) [Relative time]0.97 {INR}NormalThe [facility] Comment on above:Performed By: #### PTT, PT ####[facility] Agbksmpqpu4985[address] [place], [place] [address]Dr. Soniya ChiINR GUIDELINESSEE BELOWNormal The [facility] HospitalComment on above:Result Comment: DESIRED INR: 2.0 - 3.0 CONDITIONS NOT LISTED BELOW 2.5 - 3.5 FOR PROSTHETIC HEART VALVE REPLACEMENT 2.5 - 3.5 RECURRENT THROMBOSISPerformed By: #### PTT, PT ####[facility] Mxsjmwujsi9760[address] [place], [place] [address]Dr. Soniya ChangPT Coag (PPP) [Time]10.3 sNormal9.0-11.6The [facility] HospitalComment on above:Performed By: #### PTT, PT ####[facility] Rsppzbldok[address] [place] [address]Dr. Soniya ChiPTTon 28-84-1069mKPK Coag (Bld) [Time]33.1 wVocobf92.3-36.2 The [facility] HospitalComment on above:Performed By: #### PTT, PT ####[facility] S[address]uldtegi[address] [place] [address]Dr. Soniya Chi TROPONIN, HIGH SENSITIVITYon 76-18-7029WWYIYN7.8 pg/mLNormal4.0-51.3The [facility] HospitalComment on above:Result Comment: CUT-OFF POINTS HAVE BEEN ESTABLISHED BASED ON THE FOURTH UNIVERSAL DEFINITIONS OF MYOCARDIALINFARCTION. THE UPPER REFERENCE LIMIT (URL) OF TROPONIN, DEFINED THE 99TH PERCENTILE OFcTnI DISTRIBUTION IN A REFERENCE POPULATION, HAS BEEN CONFIRMED THE DECISION THRESHOLDFOR MN DIAGNOSIS.Performed By: #### TSH, CK, HSTROPN, CMP ####[facility] Gqlfhjwopv[address] [place] [address]Dr. Soniya ChiTSHon 39-95-7815GTX2.844 uIU/mLCritically high0.358-3.740The [facility] HospitalComment on above:Performed By: #### TSH, CK, HSTROPN, CMP ####[facility] Nobtsubvcd32[address] [place], [place] [address]Dr. Gypsyjuan ChiXR CHEST 1 Von 02-84-5108OY CHEST 1 VNormalThe [facility] HospitalUA (CLEAN/CATCH) MAINTENANCE INSPECTOR/MICRO IF IND.on 45-17-7376Nmagcwzoz Ql (U)NegativeNormalNEGATIVEThe [facility] Comment on above:Performed By: #### MARCOS VERA ####[facility] G[address]ql[address]vxfpr[address] [place] [address]Dr. Soniya ChiClarity (U) CLEARNormalCLEARThe [facility] HospitalComment on above:Performed By: #### DENIZ VERARO ####[facility] [address]hrxbjimt[address] [place] [address]Dr. Yilan ChangColor (U)LT. YELLOWNormalYELLOWThe [facility] Comment on above:Performed By: #### MARCOS VERA ####[facility] Kszxntfhue[address] [place] [address]Dr. Yilan ChangGlucose Ql (U) NegativeNormalNEGATIVEThe [facility] HospitalComment on above:Performed By: #### MARCOS VERA ####[facility] H[address]vwtjpd[address] [place] [address]Dr. Yilan ChangHemoglobin Ql (U)NegativeNormalNEGATIVEThe [facility] HospitalComment on above:Performed By: #### MARCOS VERA ####[facility] Fijzvdzksd26[address] [place], [place] [address]Dr. Yilan Chi Ketones Ql (U)NegativeNormalNEGATIVEThe [facility] HospitalComment on above: Performed By: #### MARCOS VERA ####[facility] Kzxmyhrrds8917[address] [place], [place] [address]Dr. Yilan ChangLEUKOCYTESMODERATEAbnormalNEGATIVE The [facility] HospitalComment on above:Performed By: #### MARCOS VERA ####[facility] Jkyobdaaei459[address] [place], [place] [address]Dr. Yilan ChangNitrite Ql (U)NegativeNormalNEGATIVEThe [facility] HospitalComment on above:Performed By: #### MARCOS VERA ####[facility] Fptjuibpso[address] [place] [address]Dr. Yilan ChangpH (U)5.5 [pH]Normal5-9The [facility] HospitalComment on above:Performed By: #### MARCOS VERA ####[facility] Okdepilzil1475[address] [place], [place] [address]Dr. Yilan ChangSPEC GRAVITY<=1.088Kealacvu4.005-<=1.025The [facility] HospitalComment on above:Performed By: #### MARCOS VERA ####[facility] Luxxqitqpb[address] [place] [address]Dr. Soniya ChiUA PROTEINNegativeNormal NEGATIVE/ TRACEThe [facility] HospitalComment on above:Performed By: #### LUIS VERAICRO ####[facility] K[address]ckjhzzq[address] [place] [address]Dr. Soniya ChiUR MICRO INDINDICATEDNormalThe [facility] HospitalComment on above:Performed By: #### CHUY UMICRO ####[facility] Msoqvgkkut[address] [place] [address]Dr. Soniya ChiUrobilinogen Qn (U)0.2 {Casimiro'U}/dLNormal0.2 - 1.0The [facility] HospitalComtr[facility] on above:Performed By: #### LUIS VERAICRO ####[facility] Yodhjuiknw4824[address] [place], [place] [address]Dr. Soniya Todd MICROSCOPIC ONLYon 08-15-2022 BACTERIATRACEAbnormalNONE SEENThe [facility] HospitalComtr[facility] health [facility] on above:Performed By: #### CHUY ICRO ####[facility] Kgadkpaedr[address] [place], [place] [address]Dr. Soniya ChiBacteria identified Cx Nom (U)INDICATED NormalThe [facility] HospitalComtr[facility] health [facility] on above:Performed By: #### LUIS VERAICRO ####[facility] Npmvnmgaoi8938[address] [place], [place] [address]Dr. Soniya ChangCASTNONE SEENNormalNONE SEENThe [facility] HospitalComtr[facility] health [facility] on above: Performed By: #### LUIS VERAICRO ####[facility] Nqhrwqseky745[address] [place], [place] [address]Dr. Soniya ChiCrystals LM Nom (Urine sed)NONE SEENNormalNONE SEENFayette [facility] Memorial Hospital on above:Performed By: #### CHUY UMICRO ####[facility] Tmjddhukmj579[address] [place], [place] [address]Dr. Soniya ChangEpithelial cells LM Ql (Urine sed)RARENormalNONE SEEN /RAREThe [facility] HospitalComment on above:Performed By: #### CHUY ICRO ####[facility] Zaylknacxb312[address] [place], [place] [address]Dr. Yilan ChangMUCOUSNONE SEENNormalNONE SEENThe [facility] HospitalComment on above: Performed By: #### KIRSTENCSLUIS UMICRO ####[facility] Ssqbvocwuy2536[address] [place], [place] [address]Dr. Yilan ChangRBCNONE SEENAbnormal0-2The [facility] HospitalComment on above:Performed By: #### CHUY [facility]ITALRO ####[facility] Uxhaisedqp350[address] [place], [place] [address]Dr. Yilan ChangWBC5-10AbnormalNONE SEENGrand Lake Joint Township District Memorial HospitalComment on above: Performed By: #### CHUY ICRO ####[facility] Lzocleljws[address] [place], [place] [address]Dr. Gypsylan ChangCBC AUTO DIFFon 70-60-1930MPFS # 0.0 103/ulNormal0.0-0.1The [facility] HospitalComment on above:Performed By: #### CBC ####[facility] Kgtqgakqvu09[address] [place], [place] [address]Dr. Gypsylan ChangBasophils/100 WBC (Bld)0.2 %Normal0.2-2.0The [facility] HospitalComment on above:Performed By: #### CBC ####[facility] Zmfkqypjbo16[address] [place], [place] [address]Dr.Yilan ChangEO #0.1 103/ulNormal0.0-0.7The [facility] HospitalComment on above:Performed By: #### CBC ####[facility] Hdounlevye7525[address] [place], [place] [address]Dr.Gypsylan ChangEosinophils/100 WBC (Bld)1.0 %Normal0.9-7.0The [facility] HospitalComment on above:Performed By: #### CBC ####[facility] Gjtwguolut834[address] [place], [place] [address]Dr.Yilan ChangErythrocyte distribution width (RBC) [Ratio]15.1 %Critically high11.0-15.0The [facility] HospitalComment on above:Performed By: #### CBC ####[facility] Ncobuepnej045[address] [place], [place] [address]Dr. Soniya ChangHematocrit (Bld) [Volume fraction]31.1 %Critically low36.0-48.0The [facility] HospitalComment on above:Performed By: #### CBC ####[facility] Rnepxyoque944[address] [place], [place] [address]Dr.Soniya ChangHemoglobin (Bld) [Mass/Vol]10.2 g/dLCritically low12.0-16.0The [facility] HospitalComment on above:Performed By: #### CBC ####[facility] Qxztrlfxug579394 [address] [place], [place] [address]Dr.Yilan ChangIG #0.01 10e3/ulNormal0.00-0.03The [facility] HospitalComment on above:Performed By: #### CBC ####[facility] Vwfiaqinqp518[address] [place], [place] [address]Dr.Gypsylan ChangIG %0.2 %Normal 0.0-0.5The [facility] HospitalComment on above:Performed By: #### CBC ####[facility] Jgdjhzfcfd290[address] [place], [place] [address]Dr.Soniya ChangLYMPH #1.1 103/ulCritically low1.2-3.8The [facility] HospitalComment on above:Performed By: #### CBC ####[facility] Hzsfiwaudu095[address] [place], [place] [address]Dr.Gypsylan ChangLymphocytes/100 WBC (Bld)22.5 %Uyraos59.5-60.0The [facility] HospitalComment on above:Performed By: #### CBC ####[facility] Mzrbemphmp029[address] [place], [place] [address]Dr.Gypsylan ChangMANUAL DIFF REQ NONormalThe [facility] HospitalComment on above:Performed By: #### CBC ####[facility] Zaeddpfazx[address] [place], [place] [address]Dr. Soniya ChiH (RBC) [Entitic mass]30.5 vsWvzoev00.7-34.0The [facility] Comment on above:Performed By: #### CBC ####[facility] Qvforbaspk[address] [place] [address]Dr.Soniya ChiMCHC (RBC) [Mass/Vol]32.8 g/dL Wldujk12.9-35.2The [facility] HospitalComment on above:Performed By: #### CBC ####[facility] Akidabijlk637[address] [place], [place] [address]Dr. Soniya ChiMCV (RBC) [Entitic vol]93.1 fBLmxihe57.0-99.0The [facility] Comment on above:Performed By: #### CBC ####[facility] Fatljlzrar801[address] [place], [place] [address]Dr.Soniya ChiMONO #0.3 103/ulNormal0.3-0.8 The [facility] HospitalComment on above:Performed By: #### CBC ####[facility] Bdxudzbhfb2900[address] [place], [place] [address]Dr.Soniya Chi Monocytes/100 WBC (Bld)6.6 %Normal1.7-12.0The [facility] HospitalComment on above: Performed By: #### CBC ####[facility] Miruzauize801[address] [place], [place] [address]Dr.Soniya ChiNEUT #3.5 103/ulNormal1.4-6.5The [facility] HospitalComment on above:Performed By: #### CBC ####[facility] Kquiffefbs374[address] [place], [place] [address]Dr.Soniya ChiNeutrophils/100 WBC (Bld)69.5 %Rjobjx56.0-75.0The [facility] HospitalComment on above:Performed By: #### CBC ####[facility] Eucthzsbxd741[address] [place], [place] [address]Dr.Soniya ChiPlatelet mean volume (Bld) [Entitic vol]10.3 fLNormal9.5-13.5 The [facility] HospitalComment on above:Performed By: #### CBC ####[facility] Lwbkrhgkjt[address] [place] [address]Dr.Yilan RfdpmBNA133 103/ulCritically mtl700-759Lga [facility] HospitalComment on above:Performed By: #### CBC ####[facility] Dlahjvwxwe[address] [place] [address]Dr.Yilan ChangRBC3.34 106/ulCritically low4.20-5.40The [facility] Comment on above:Performed By: #### CBC ####[facility] Qhxhbeigql[address] [place] [address]Dr.Yilan ChangWBC5.0 103/ulNormal4.0-11.0The [facility] HospitalComment on above:Performed By: #### CBC ####[facility] Camoguptpz1404[address] [place], [place] [address]Dr.Soniya AlonLIVER PROFILEon 37-76-5022Tdqnubg [Mass/Vol]3.6 g/dLNormal3.4-5.0The [facility] HospitalComment on above:Performed By: #### LIVER, BMP ####[facility] Apyuvrheop178[address] [place], [place] [address]Dr. Gypsylan ChangAlbumin/Globulin [Mass ratio]1.0 {ratio}NormalThe [facility] on above:Performed By: #### LIVER, BMP ####[facility] Ijsqnnjcow05119[address] [place], [place] [address]Dr. Yilan ChangALP [Catalytic activity/Vol]111 U/XDptdfu81-405Pue [facility] Comment on above:Performed By: #### LIVER, BMP ####[facility] Sofnxovjea[address] [place], [place] [address]Dr. Yilan ChangALT [Catalytic activity/Vol]46 U/KAhmesi68-63Aby [facility] HospitalComment on above:Performed By: #### LIVER, BMP ####[facility] Levjkqhdxu2412[address] [place], [place] [address]Dr. Yilan ChangAST [Catalytic activity/Vol]17 U/L Ejktzo90-18Bup [facility] HospitalComment on above:Performed By: #### LIVER, BMP ####[facility] Zfjurtgrhw[address] [place] [address]Dr. Yilan ChangBILI, CONJUGATED0.1 mg/dLNormal0.0-0.2The [facility] HospitalComment on above:Performed By: #### LIVER, BMP ####[facility] Oraoapgduh584[address] [place], [place] [address]Dr. Yilan ChangBilirubin [Mass/Vol]0.7 mg/dL Normal0.2-1.0The [facility] HospitalComment on above:Performed By: #### LIVER, BMP ####[facility] Bxqmdqoacm6040[address] [place], [place] [address]Dr. Yilan ChangGlobulin (S) [Mass/Vol]3.5 g/dLNormalThe [facility] HospitalComment on above:Performed By: #### LIVER, BMP ####[facility] Yfhthndtkq39999[address] [place], [place] [address]Dr. Yilan ChangProtein [Mass/Vol]7.1 g/dLNormal 6.4-8.2The [facility] HospitalComment on above:Performed By: #### LIVER, BMP ####[facility] Acqrmpenmx[address] [place], [place] [address]Dr. Yilan ChangPROF CHEM 8 (BAS METB)on 15-26-1040Avkyx gap [Moles/Vol]6.8 mmol/L NormalThe [facility] HospitalComment on above:Performed By: #### LIVER, BMP ####[facility] Thqzsaramv2330[address] [place], [place] [address]Dr. Yilan ChangCalcium [Mass/Vol]10.1 mg/dLNormal8.5-10.1The [facility] Comment on above:Performed By: #### LIVER, BMP ####[facility] Jzvrjpzidw[address] [place], [place] [address]Dr. Yilan ChangChloride [Moles/Vol]105 mmol/VRzihzl06-765Odk [facility] HospitalComment on above:Performed By: #### LIVER, BMP ####[facility] Cwfhukpteq[address] [place] [address]Dr. Yilan ChangCO2 [Moles/Vol]32.4 mmol/LCritically high21.0-32.0The [facility] HospitalComment on above:Performed By: #### LIVER, BMP ####[facility] Btzhhgpngg[address] [place], [place] [address]Dr. Yilan ChangCreatinine [Mass/Vol]1.25 mg/dLCritically high0.55-1.02The [facility] HospitalComment on above:Performed By: #### LIVER, BMP ####[facility] Hzrjijocnx594[address] [place], [place] [address]Dr. Yilan ChangEGFR-AF GCYXMXCD03 mL/min/1.54d7Arqenwglot low>=60The [facility] Healthment on above: Performed By: #### LIVER, BMP ####[facility] Guwriunoex[address] [place], [place] [address]Dr. Yilan ChangEGFR-NON AF TJGKQMXX61 mL/min/1.73m2 Critically low>=60The [facility] HospitalComment on above:Performed By: #### LIVER, BMP ####[facility] Tbfyuxvabc[address] [place], [place] [address]Dr. Yilan ChangGlucose [Mass/Vol]86 mg/lBCxhjyo24-125Nua [facility] Comment on above:Performed By: #### LIVER, BMP ####[facility] Vrrflkglrm[address] [place], [place] [address]Dr. Yilan ChangPotassium [Moles/Vol]3.9 mmol/LNormal3.5-5.1The [facility] HospitalComment on above: Performed By: #### LIVER, BMP ####[facility] Vvoerrmick[address] [place], [place] [address]Dr. Yilan ChangSodium [Moles/Vol]142 mmol/LNormal 136-145The [facility] HospitalComment on above:Performed By: #### LIVER, BMP ####[facility] Moaymbeqph95[address] [place], [place] [address]Dr. Yilan ChangUrea nitrogen [Mass/Vol]23.0 mg/dLCritically high7.0-18.0The [facility] HospitalComment on above:Performed By: #### LIVER, BMP ####[facility] Ltoyifzdpt[address] [place], [place] [address]Ff. Yilan ChangUrea nitrogen/Creatinine [Mass ratio]18.4 mg/mgNormalThOhioHealth O'Bleness HospitalComment on above:Performed By: #### LIVER, BMP ####[facility] [address] [place], [place] [address]Ee. Yilan ChangCreatinine and Glomerular filtration rate.predicted panel (S/P/Bld)Ordered By: Marlene Guerra on 06-17-2022 Creatinine [Mass/Vol]1.30 mg/dL0.44-1.03[facility] Estimated glomerular filtration rate (GFR) non- AmericanOrdered By: Marlene Guerra on 45-59-2779JHX/1.73 sq M.predicted among non-blacks MDRD (S/P/Bld) [Vol rate/Area]41 mL/MinOhio State University Wexner Medical CenterNo Panel InformationOrdered By: Marlene Guerra on 20-28-5261Syeptkvla GFR ()49 mL/MinOhio State University Wexner Medical CenterComment on above:GFR estimated reference range: According to KDOQI guidelines, <60 ml/min/1.73m2 is sufficient todiagnose a patient with chronic kidney disease.Pharmacy Creatinine Clearance (Chem39.93[facility] Hospitalerum or plasma anion gap determinationOrdered By: Marlene Guerra on 36-22-9699Uuewq gap [Moles/Vol]12.2 mmol/L6.0-15.0[facility] Hospitalerum or plasma calcium measurement (mass/volume)Ordered By: Marlene Guerra on 12-24-3067Zdtawvv [Mass/Vol]9.3 mg/dL8.2-10.2FRegency Hospital Cleveland Westerum or plasma chloride measurement (moles/volume)Ordered By: Marlene Guerra on 95-50-9856Nctwoual [Moles/Vol]100 mmol/V30-963HhkylsnmwParma Community General Hospitalerum or plasma glucose measurement (mass/volume)Ordered By: Marlene Guerra on 24-60-6712Osnfbrj [Mass/Vol]101 mg/qJ52-234VfpadftqzOhio State University Wexner Medical CenterComment on above:ADA recommended reference rangeRandom Glucose Reference Range is dependent on time and content of last meal. Glucose of more than 200 mg/dL in a nonstressed, ambulatory subject supports the diagnosisof Diabetes Mellitus.Serum or plasma potassium measurement (moles/volume)Ordered By: Marlene Guerra on 70-17-2675Yapwctvjg [Moles/Vol]3.8 mmol/L3.5-5.1FRegency Hospital Cleveland Westerum or plasma sodium measurement (moles/volume)Ordered By: Marlene Guerra on 82-78-2179Ayrjab [Moles/Vol]135 mmol/E642-518HbuttraulParma Community General Hospitalerum or plasma total carbon dioxide measurement (moles/volume) Ordered By: Marlene Guerra on 52-57-4097ST5 [Moles/Vol]26.6 mmol/L22.0-30.0 [facility] Hospitalerum or plasma urea nitrogen measurement (mass/volume)Ordered By: Marlene Guerra on 29-90-8082Hnoh nitrogen [Mass/Vol]26 mg/dL9-23[facility] CenterBasophils Auto (Bld) [#/Vol]Ordered By: Marlene Guerra on 93-19-6251Yvrtyuwix (Bld) [#/Vol]0.0 10*3/uL0.0-0.2FProMedica Bay Park HospitalBasophils/100 WBC Auto (Bld)Ordered By: Marlene Guerra on 30-20-7464Cwkmdalfm/100 WBC (Bld)0.5 %.[facility] Eosinophils Auto (Bld) [#/Vol]Ordered By: Marlene Guerra on 10-19-6020Ugpfeyhkojs (Bld) [#/Vol]0.0 10*3/uL0.0-0.45[facility] CenterEosinophils/100 WBC Auto (Bld)Ordered By: Marlene Guerra on 21-59-5281Putmaslsxsu/100 WBC (Bld)0.3 %.[facility] CenterErythrocyte distribution width Auto (RBC) [Ratio]Ordered By: Marlene Guerra on 67-71-1567Ufqalnrddpw distribution width (RBC) [Ratio]15.6 %11.9-15.3FProMedica Bay Park HospitalHematocrit Auto (Bld) [Volume fraction]Ordered By: Marlene Guerra on 12-87-5714Nycuabrzfv (Bld) [Volume fraction]34.4 %34.0-46.4FProMedica Bay Park HospitalHemoglobin [Mass/volume] in BloodOrdered By: Marlene Guerra on 65-62-0267Tfdlpyshnh (Bld) [Mass/Vol]11.2 g/dL11.8-15.4FProMedica Bay Park HospitalInfluenza virus A and B antigen detection by immunoassayOrdered By: Kassandra Vasquez on 06-15-2022 FLUAV+FLUBV Ag IA Ql (Unsp spec)[facility] CenterLeukocytes [#/volume] corrected for nucleated erythrocytes in Blood by Automated coun Ordered By: Marlene Guerra on 90-02-4780GSU corrected for nucl RBC Auto (Bld) [#/Vol]8.2 10*3/uL3.8-11.6FProMedica Bay Park HospitalLymphocytes Auto (Bld) [#/Vol]Ordered By: Marlene Guerra on 42-27-3730Lyuiermoewo (Bld) [#/Vol]0.9 10*3/uL1.00-4.8[facility] CenterLymphocytes/100 WBC Auto (Bld) Ordered By: Marlene Guerra on 49-97-3791Jbdmaxouymh/100 WBC (Bld)10.9 %.[facility] CenterMCH Auto (RBC) [Entitic mass]Ordered By: Marlene Guerra on 66-38-7828KWA (RBC) [Entitic mass]29.6 pg24.7-34.3FProMedica Bay Park HospitalMCHC Auto (RBC) [Mass/Vol]Ordered By: Marlene Guerra on 90-03-3027DUDR (RBC) [Mass/Vol]32.7 g/dL32.0-35.0[facility] CenterMCV Auto (RBC) [Entitic vol]Ordered By: Marlene Guerra on 67-75-1292PPP (RBC) [Entitic vol]90.5 fL 80-100[facility] CenterMonocytes Auto (Bld) [#/Vol]Ordered By: Marlene Guerra on 77-94-7914Xdserpbxy (Bld) [#/Vol]0.8 10*3/uL0.0-0.8[facility] CenterMonocytes/100 WBC Auto (Bld)Ordered By: Marlene Guerra on 20-08-2777Ufkjfxpwb/100 WBC (Bld)9.8 %.[facility] Neutrophils Auto (Bld) [#/Vol]Ordered By: Marlene Guerra on 33-08-4278Pzodwhcvoyu (Bld) [#/Vol]6.4 10*3/uL1.8-7.7FProMedica Bay Park HospitalNeutrophils/100 WBC Auto (Bld)Ordered By: Marlene Guerra on 59-47-5595Ttyvtwmipkv/100 WBC (Bld)78.5 %.[facility] CenterNucleated erythrocytes [Presence] in Blood by Automated countOrdered By: Marlene Guerra on 89-61-2957Vnfuiqttw RBC Auto Ql (Bld)0.1 /100{WBC}0-0.5FProMedica Bay Park HospitalPlatelet mean volume Auto (Bld) [Entitic vol]Ordered By: Marlene Guerra on 06-98-5726Xnxrwcca mean volume (Bld) [Entitic vol]7.9 fL6.3-10.7FProMedica Bay Park Hospital Platelets Auto (Bld) [#/Vol]Ordered By: Marlene Guerra on 48-55-1660Kojabbusr (Bld) [#/Vol]209 10*3/jX731-924BwxvzitawOhio State University Wexner Medical CenterRBC Auto (Bld) [#/Vol]Ordered By: Marlene Guerra on 12-06-5346RGN (Bld) [#/Vol]3.80 10*6/uL 3.60-5.00[facility] CenterUrine culture routineOrdered By: Marleen Guerra on 76-99-6008Uxfkmbod identified Cx Nom (U)2 DaysOhio State University Wexner Medical CenterWBC Auto (Bld) [#/Vol]Ordered By: Marlene Guerra on 89-16-0338SGS (Bld) [#/Vol]8.2 10*3/uL3.8-11.6FProMedica Bay Park HospitalAlbumin [Mass/volume] in Serum or PlasmaOrdered By: Marty Mclean on 06-14-2022 Albumin [Mass/Vol]4.0 g/dL3.2-5.5FProMedica Bay Park HospitalAutomated erythrocytes count in urine sediment (number/area)Ordered By: Marty Mclean on 05-33-4509YRT Auto (Urine sed) [#/Area]0-1 [HPF]0-4FProMedica Bay Park HospitalAutomated leukocytes count in urine sediment (number/area)Ordered By: Marty Mclean on 77-99-7154UTH Auto (Urine sed) [#/Area]None seen [HPF]0-4FProMedica Bay Park HospitalBilirubin Test strip Ql (U)Ordered By: Marty Mclean on 62-21-3596Cflqvhwgy Ql (U)Negative NegativeOhio State University Wexner Medical CenterCOVID-19 SOFIAOrdered By: Marty Mclean on 47-88-0577WBMD-CoV+SARS-CoV-2 (COVID-19) Ag IA.rapid Ql (Resp) NegativeNegativeOhio State University Wexner Medical CenterComment on above:This is a duplicate Stefania SARS Antigen ([facility]) result to be used for statistical tracking purpose only.Color Auto (U)Ordered By: Marty Mclean on 83-45-3226Gplqt (U)YellowYellowOhio State University Wexner Medical CenterGlobulin Calc (S) [Mass/Vol] Ordered By: Marty Mclean on 97-85-5624Bxgbfacp (S) [Mass/Vol]3.5 g/dL [facility] CenterKetones Auto test strip (U) [Mass/Vol]Ordered By: Marty Mclean on 74-78-3797Cnxfrfe (U) [Mass/Vol]NegativeNegative [facility] CenterLaboratory - UrinalysisOrdered By: Marty Mclean on 64-23-6610Gzrsyug casts LM Ql (Urine sed)None seen [LPF]0-8 [facility] CenterMonocyte %Ordered By: Marlene Guerra on 06-14-2022 Monocyte %10 umol/V05-41AuidezoloOhio State University Wexner Medical CenterNitrite Test strip Ql (U)Ordered By: Marty Mclean on 59-02-1329Eogvbcw Ql (U)NegativeNegative [facility] CenterProtein Auto test strip (U) [Mass/Vol]Ordered By: Marty Mclean on 59-35-1122Ugwtewu (U) [Mass/Vol]NegativeNegative [facility] CenterProtein [Mass/volume] in Serum or PlasmaOrdered By: Marty Mclean on 03-92-7618Syhycbd [Mass/Vol]7.5 g/dL6.1-7.9 [facility] Hospitalerum or plasma alanine aminotransferase measurement without P-5'-P (enzymatic activiOrdered By: Marty Mclean on 74-24-9870GRI No additional P-5'-P [Catalytic activity/Vol]25 U/I93-56JknrtkhkpParma Community General Hospitalerum or plasma albumin/globulin mass ratioOrdered By: Marty Mclean on 07-61-1746Qzuqxyw/Globulin [Mass ratio]1.1 {ratio} [facility] Hospitalerum or plasma alkaline phosphatase measurement (enzymatic activity/volume)Ordered By: Marty Mclean on 12-21-5303GOM [Catalytic activity/Vol]91 U/I08-08RkfkblsqpParma Community General Hospitalerum or plasma aspartate aminotransferase measurement (enzymatic activity/volume)Ordered By: Marty Mclean on 97-93-7887QRC [Catalytic activity/Vol]17 U/X06-28UwmzljiytParma Community General Hospitalerum or plasma total bilirubin measurement (mass/volume)Ordered By: Marty Mclean on 14-27-8814Zauykddyg [Mass/Vol]0.9 mg/dL0.3-1.2FProMedica Bay Park Hospital Specific gravity Auto test strip (U) [Rel density]Ordered By: Marty Mclean on 20-11-5874Kuirgwcr gravity (U) [Rel density]1.0181.001-1.030 [facility] Hospitalquamous epithelial cells detection in urine sediment by light microscopyOrdered By: Marty Mclean on 06-14-2022 Epithelial cells.squamous LM Ql (Urine sed)None seen [HPF]0-2FProMedica Bay Park HospitalUrine bacteria detection by automated methodOrdered By: Marty Mclean on 18-98-8240Upkhuqqn Auto Ql (U)None seenNone Seen [facility] CenterUrine clarity by refractometry automatedOrdered By: Marty Mclean on 50-58-3178Sxhsfds Refractometry automated (U)Clear ClearOhio State University Wexner Medical CenterUrine glucose measurement by automated test strip (mass/volume)Ordered By: Marty Mclean on 61-62-1712Frknenn Auto test strip (U) [Mass/Vol]Normal mg/dLNoMarietta Memorial HospitalUrine hemoglobin detection by automated test stripOrdered By: Marty Mclean on 55-05-5914Caqdxwojeh Auto test strip Ql (U)NegativeNegative [facility] CenterUrine leukocyte esterase detection by automated test stripOrdered By: Marty Mclean on 38-21-7894Wfnzopuaj esterase Auto test strip Ql (U)NegativeNegativeOhio State University We[facility] Medical Center Urobilinogen Auto test strip (U) [Mass/Vol]Ordered By: Marty Mclean on 15-69-7734Zwrjregpzbww (U) [Mass/Vol]Normal mg/dLNoMarietta Memorial HospitalpH Auto test strip (U)Ordered By: Marty Mclean on 97-15-6687iI (U)6.0 [pH]5.0-9.0[facility] CenterTriiodothyronine (T3) Free [Mass/volume] in Serum or PlasmaOrdered By: Anca Wheeler on 06-02-2022 Free T3 [Mass/Vol]2.78 pg/mL2.50-3.90[facility] CenterCT biopsy Ordered By: Anca Wheeler on 34-83-9706Qhqrouwsxns [Mass/Vol]207 mg/uS993-463 [facility] CenterFerritin [Mass/volume] in Serum or Plasma Ordered By: Anca Wheeler on 31-62-6782Dxrybwhq [Mass/Vol]212.1 ng/lH94-250.8 [facility] CenterFolate [Mass/volume] in Serum or PlasmaOrdered By: Anca Wheeler on 88-51-4469Kjzdfz [Mass/Vol]5.6 ng/mL>5.9[facility] CenterComment on above:Folate reference range: >5.9 ng/mlThe WHO technical consultation on folate and vitamin k26dgbzynoduxzm has determined that folate concentrations lessthan 4 ng/ml are considered deficient.Iron [Mass/volume] in Serum or PlasmaOrdered By: Anca Wheeler on 95-56-4632Nwht [Mass/Vol]51 ug/dL99-036LqogvgtafOhio State University Wexner Medical CenterIron binding capacity [Mass/volume] in Serum or PlasmaOrdered By: Anca Wheeler on 34-80-7819Fisr binding capacity [Mass/Vol]290 ug/kY791-059PazwucerqOhio State University Wexner Medical CenterIron saturation [Mass Fraction] in Serum or PlasmaOrdered By: Anca Wheeler on 93-88-0358Yted saturation [Mass fraction]17.6 %20-50[facility] CenterLaboratory - Chemistry and Chemistry - challengeOrdered By: Anca Wheeler on 86-48-3553Jmmqhonth (Vitamin B12) [Mass/Vol]452 pg/wM987-743GiwirsfgzMetroHealth [facility] DL <= 0.005 mIU/L QnOrdered By: Anca Wheeler on 86-17-2260WSY Qn2.65 m[IU]/L0.45-5.33[facility] CenterCast typing in urine sediment by light microscopyOrdered By: Reggie Quitnana on 30-90-4778Mhuqs LM Nom (Urine sed)None seen [LPF]None SeenOhio State University Wexner Medical CenterCholesterol [Mass/volume] in Serum or PlasmaOrdered By: Reggie Quintana on 05-31-2022 Cholesterol [Mass/Vol]139 mg/jO480-690TzakunglzOhio State University Wexner Medical CenterComment on above:Chol less than 200 mg/dl low riskChol 201-239 mg/dl borderline riskChol 240 mg/dl and greater high riskCholesterol in LDL Calc [Mass/Vol]Ordered By: Reggie Quintana on 19-03-3732Zqqaipbxays in LDL [Mass/Vol]50 mg/dL0-100[facility] CenterComment on above:LDL ATP III CLASSIFICATIONLDL less than 100 mg/dL OptimalLDL 100-129 mg/dL Near or above lqklcntGRC072-178 mg/dL Borderline highLDL 160-189 mg/dL HighLDL greater than 189 mg/dL Very high Cholesterol in VLDL Calc [Mass/Vol]Ordered By: Reggie Quintana on 05-31-2022 Cholesterol in VLDL [Mass/Vol]16 mg/dLOhio State University Wexner Medical CenterFine granular cast count in urine sediment by microscopy (number/low power field ) Ordered By: Reggie Quintana on 05-05-5217Ignm Granular Casts LM.LPF (Urine sed) [#/Area]1-2 [LPF]0-1FProMedica Bay Park HospitalMucus LM Ql (Urine sed) Ordered By: Reggie Quintana on 28-23-2730Rghui Ql (Urine sed)4+ [LPF][facility] CenterNo Panel InformationOrdered By: Reggie Quintana on 84-47-635734106389-Uhbngei Vitamin D Total13.1 ng/gW55-217BrpsfbchpOhio State University Wexner Medical CenterComment on above:VITAMIN D STATUS 25(OH)VITAMIN D RANGE (ng/mL) Deficient <20 Insufficient 20 to <26Jpawoxigjv51 to 100Reference: Ruiz MF,Edgar NC, Brenda FARMER, et al. Evaluation,treatment, and prevention of vitamin D deficiency; an Endocrine Society clinical practice guideline. JCEM. 2010; 96 (7):1911-30.Serum or plasma high density lipoprotein (HDL) cholesterol measurementOrdered By: Reggie Quintana on 78-02-0968Cxmyhbwrwbd in HDL [Mass/Vol] 73 mg/wD72-16HzeshnnkuOhio State University Wexner Medical CenterComment on above:HDL CHOL ATP-III CLASSIFICATION Cardiovascular RiskHDL > or equal to 60 mg/dL LOWHDL < 40 mg/dL HIGHSerum or plasma total cholesterol/high density lipoprotein (HDL) cholesterol mass ratOrdered By: Reggie Quintana on 47-22-3554Mcazytsxmpy.total/Cholesterol in HDL [Mass ratio]1.9 {ratio}<5.0[facility] CenterTriglyceride [Mass/volume] in Serum or PlasmaOrdered By: Reggie Quintana on 05-31-2022 Triglyceride [Mass/Vol]81 mg/nW07-333MauxlucfxOhio State University Wexner Medical CenterComment on above:TRIG ATP III CLASSIFICATIONTRIG less than 150 mg/dL NormalTRIG 150-199 mg/dL Borderline highTRIG 200-500 mg/dL High TRIG greater than 500 mg/dL Very highStandard traceable to the Center for Disease Conrtrol and Prevention (CDC) test method.Urine sediment uric acid crystal count by microscopy (number/high power field)Ordered By: Reggie Quintana on 44-19-0667Ozeev crystals LM.HPF (Urine sed) [#/Area]3+ [HPF][facility] CenterCBC AUTO DIFFon 64-49-2425PQVX #0.0 103/ulNormal0.0-0.1The [facility] HospitalComment on above: Performed By: #### CBC ####[facility] [address] [place] [address]Dr.Yilan ChangBasophils/100 WBC (Bld)0.2 %Normal 0.2-2.0The [facility] HospitalComment on above:Performed By: #### CBC ####[facility] [address] [place] [address]Dr.Yilan ChangEO # 0.1 103/ulNormal0.0-0.7The [facility] HospitalComment on above:Performed By: #### CBC ####[facility] [address] [place] [address]Dr. Yilan ChangEosinophils/100 WBC (Bld)1.0 %Normal0.9-7.0The [facility] Comment on above:Performed By: #### CBC ####[facility] [address] [place] [address]Dr.Yilan ChangErythrocyte distribution width (RBC) [Ratio]14.4 %Dmvdol37.0-15.0The [facility] HospitalComment on above: Performed By: #### CBC ####[facility] [address] [place] [address]Dr.Soniya ChiHematocrit (Bld) [Volume fraction]30.0 % Critically low36.0-48.0The [facility] HospitalComment on above:Performed By: #### CBC ####[facility] [address] [place] [address]Dr. Soniya ChiHemoglobin (Bld) [Mass/Vol]9.7 g/dLCritically low12.0-16.0The [facility] HospitalComment on above:Performed By: #### CBC ####[facility] I[address] [place], [place] [address]Dr.Soniya ChiIG #0.04 10e3/ulCritically high0.00-0.03The [facility] HospitalComment on above:Performed By: #### CBC ####[facility] [address] [place], [place] [address]Dr.Soniya ChiIG %0.5 %Normal0.0-0.5The [facility] HospitalComment on above: Performed By: #### CBC ####[facility] Qlipyeiwpn[address] [place], [place] [address]Dr.Soniya ChiLYMPH #0.8 103/ulCritically low1.2-3.8 The [facility] HospitalComment on above:Performed By: #### CBC ####[facility] D[address]wgkcyjw[address] [place], [place] [address]Dr.Soniya Chi Lymphocytes/100 WBC (Bld)10.0 %Critically low20.5-60.0The [facility] Comment on above:Performed By: #### CBC ####[facility] Glgpddeyrv[address] [place], [place] [address]Dr.Soniya ChiMANUAL DIFF REQNONormalThe [facility] HospitalComment on above:Performed By: #### CBC ####[facility] [address]qs[address]ap[address] [place], [place] [address]Dr.Soniya ChiMCH (RBC) [Entitic mass]29.8 ikRqfvaf02.7-34.0The Justice HospitalComment on above: Performed By: #### CBC ####[facility] [address] [place] [address]Dr.Soniya AlonMCHC (RBC) [Mass/Vol]32.3 g/dLNormal 29.9-35.2The [facility] HospitalComment on above:Performed By: #### CBC ####[facility] [address]riqhb[address] [place], [place] [address]Dr. Soniya ChiMCV (RBC) [Entitic vol]92.3 hRHrsenm72.0-99.0The [facility] Comment on above:Performed By: #### CBC ####[facility] D[address]wl[address]mc[address] [place], [place] [address]Dr.Soniya ChiMONO #0.8 103/ulNormal0.3-0.8 The [facility] HospitalComment on above:Performed By: #### CBC ####[facility] L[address]zzlyq[address] [place], [place] [address]Dr.Soniya Chi Monocytes/100 WBC (Bld)9.4 %Normal1.7-12.0The [facility] HospitalComment on above: Performed By: #### CBC ####[facility] Egwnbsvkpt[address] [place], [place] [address]Dr.Soniya ChiNEUT #6.5 103/ulNormal1.4-6.5The [facility] HospitalComment on above:Performed By: #### CBC ####[facility] Wgmqgrjuuc[address] [place], [place] [address]Dr.Soniya ChiNeutrophils/100 WBC (Bld)78.9 %Critically high43.0-75.0The [facility] HospitalComment on above: Performed By: #### CBC ####[facility] Vqscmglioi[address] [place], [place] [address]Dr.Soniya ChiPlatelet mean volume (Bld) [Entitic vol] 10.2 fLNormal9.5-13.5The [facility] HospitalComment on above:Performed By: #### CBC ####[facility] C[address]fgvorvin[address] [place], [place] [address]Dr. Yilan LafzbSAG095 103/ulCritically vvn351-013Emg [facility] HospitalComment on above:Performed By: #### CBC ####[facility] [address] [place] [address]Dr.Soniya ChangRBC3.25 106/ulCritically low4.20-5.40The [facility] HospitalComment on above:Performed By: #### CBC ####[facility] S[address]aveptqek[address] [place], [place] [address]Dr.Gypsyjuan ChangWBC8.2 103/ul Normal4.0-11.0The [facility] HospitalComment on above:Performed By: #### CBC ####[facility] Cipleqedox[address] [place], [place] [address]Dr. Soniya ChangPROF 14(COMP METB)on 59-34-6471Pjfwpfq [Mass/Vol]2.8 g/dLCritically low3.4-5.0The [facility] HospitalComment on above:Performed By: #### CMP ####[facility] Urqnmnszhq[address] [place], [place] [address]Dr. Soniya ChangAlbumin/Globulin [Mass ratio]0.8 {ratio}NormalGrand Lake Joint Township District [facility] Comment on above:Performed By: #### CMP ####[facility] [address]wnomxquev[address] [place], [place] [address]Dr.Soniya ChangALP [Catalytic activity/Vol]78 U/OHbagkx15-041Ajo [facility] HospitalComment on above:Performed By: #### CMP ####[facility] Ftdiovilqb[address] [place], [place] [address]Dr. Soniya ChangALT [Catalytic activity/Vol]26 U/XEsjyuo26-16Uva [facility] Comment on above:Performed By: #### CMP ####[facility] O[address]qcgwacz[address] [place], [place] [address]Dr.Soniya ChiAnion gap [Moles/Vol]11.3 mmol/LNormalThe [facility] HospitalComment on above:Performed By: #### CMP ####[facility] F[address]jlwoxzzd[address] [place], [place] [address]Dr. Soniya ChangAST [Catalytic activity/Vol]35 U/BCdutlq60-69Din [facility] Comment on above:Performed By: #### CMP ####[facility] Uvupubsvvq[address] [place], [place] [address]Dr.Yijuan ChangBilirubin [Mass/Vol]0.9 mg/dL Normal0.2-1.0The [facility] HospitalComment on above:Performed By: #### CMP ####[facility] Wvgjtbiisw[address] [place], [place] [address]Dr. Yilan ChangCalcium [Mass/Vol]9.2 mg/dLNormal8.5-10.1The [facility] HospitalComment on above:Performed By: #### CMP ####[facility] [address]arxsdbwa[address] [place], [place] [address]Dr.Yilan ChangChloride [Moles/Vol]113 mmol/LCritically pwni08-521Cho [facility] HospitalComment on above:Performed By: #### CMP ####[facility] Qxrviwpoyf[address] [place], [place] [address]Dr. Yilan ChangCO2 [Moles/Vol]26.5 mmol/MNnwzyq18.0-32.0The [facility] HospitalComment on above:Performed By: #### CMP ####[facility] V[address]nmkduv[address] [place], [place] [address]Dr.Yijuan ChangCreatinine [Mass/Vol]1.21 mg/dL Critically high0.55-1.02The [facility] HospitalComment on above:Performed By: #### CMP ####[facility] [address]wpyxmjbbh[address] [place], [place] [address]Dr.Yilan ChangEGFR-AF ZHCPLUMY03 mL/min/1.92m7Fgyucydxms low>=60The [facility] HospitalComment on above:Performed By: #### CMP ####[facility] K[address]jpafvpqe[address] [place], [place] [address]Dr.Yilan ChangEGFR-NON AF VTYVZXFZ22 mL/min/1.99a4Sagsfmudra low>=60The [facility] HospitalComment on above: Performed By: #### CMP ####[facility] Y[address]vwszqmh[address] [place], [place] [address]Dr.Yilan ChangGlobulin (S) [Mass/Vol]3.6 g/dLNormUniversity Hospitals Beachwood Medical CenterComment on above:Performed By: #### CMP ####[facility] Ouxrfghhma[address] [place], [place] [address]Dr.Yilan ChangGlucose [Mass/Vol]101 mg/bNDpnvxb07-148Mug [facility] HospitalComment on above:Performed By: #### CMP ####[facility] [address]iyc[address] [place], [place] [address]Dr.Yilan ChangPotassium [Moles/Vol]3.8 mmol/LNormal3.5-5.1The [facility] HospitalComment on above:Performed By: #### CMP ####[facility] J[address]enntuxt[address] [place], [place] [address]Dr.Yilan ChangProtein [Mass/Vol]6.4 g/dLNormal6.4-8.2The [facility] HospitalComment on above:Performed By: #### CMP ####[facility] [address]un[address] [place], [place] [address]Dr.Yilan ChangSodium [Moles/Vol]147 mmol/LCritically issk825-025Zhy [facility] HospitalComment on above:Performed By: #### CMP ####[facility] [address]ktieqcw[address] [place], [place] [address]Dr.Yilan ChangUrea nitrogen [Mass/Vol]18.0 mg/dLNormal7.0-18.0The [facility] HospitalComment on above: Performed By: #### CMP ####[facility] [address]jb[address] [place], [place] [address]Dr.Yilan ChangUrea nitrogen/Creatinine [Mass ratio] 14.9 mg/mgNormUniversity Hospitals Beachwood Medical CenterComment on above:Performed By: #### CMP ####[facility] I[address]zautpe[address] [place], [place] [address]Dr. Yilan ChangPROF CHEM 8 (BAS METB)on 24-65-9737Alnml gap [Moles/Vol]9.9 mmol/L NormalThe [facility] HospitalComment on above:Performed By: #### BMP ####[facility] [address] [place] [address]Dr.Soniya Chi Calcium [Mass/Vol]9.0 mg/dLNormal8.5-10.1The [facility] HospitalComment on above: Performed By: #### BMP ####[facility] [address] [place] [address]Dr.Yilan ChangChloride [Moles/Vol]114 mmol/LCritically mfdl63-109Blz [facility] City HospitalComment on above:Performed By: #### BMP ####[facility] Mhqecqswce038[address] [place], [place] [address]Dr. Yilan ChangCO2 [Moles/Vol]28.0 mmol/ZBctizu22.0-32.0The [facility] City HospitalComment on above:Performed By: #### BMP ####[facility] Udajdakkuc075[address] [place], [place] [address]Dr.Soniya ChangCreatinine [Mass/Vol]1.37 mg/dL Critically high0.55-1.02The [facility] HospitalComment on above:Performed By: #### BMP ####[facility] Znsnzqqupt993[address] [place], [place] [address]Dr.Yilan ChangEGFR-AF QYQAZMAZ51 mL/min/1.46a3Hjcfeehyvv low>=60The [facility] HospitalComment on above:Performed By: #### BMP ####[facility] Rxqkdmbhdu737[address] [place], [place] [address]Dr.Yilan ChangEGFR-NON AF WSKCWLMK83 mL/min/1.16j0Fnmyswgvec low>=60The [facility] HospitalComment on above: Performed By: #### BMP ####[facility] Dspabwwkjb961894 [address] [place], [place] [address]Dr.Yilan ChangGlucose [Mass/Vol]104 mg/mWOwxxlx22-021 The [facility] HospitalComment on above:Performed By: #### BMP ####[facility] Iizxpgkfbk675[address] [place], [place] [address]Dr.Gypsylan Chi Potassium [Moles/Vol]2.9 mmol/LCritically low3.5-5.1The [facility] HospitalComment on above:Performed By: #### BMP ####[facility] Vudteevtyf426[address] [place], [place] [address]Dr.Yilan ChangSodium [Moles/Vol]147 mmol/LCritically wewh789-102Idn [facility] HospitalComment on above:Performed By: #### BMP ####[facility] Hdogfdeqlk043594 [address] [place], [place] [address]Dr. Yilan ChangUrea nitrogen [Mass/Vol]18.0 mg/dLNormal7.0-18.0The [facility] Comment on above:Performed By: #### BMP ####[facility] Pmyymduyjx466394 [address] [place], [place] [address]Dr.Yilan ChangUrea nitrogen/Creatinine [Mass ratio]13.1 mg/mgNormalThe [facility] HospitalComment on above:Performed By: #### BMP ####[facility] Plithtkmws744[address] [place], [place] [address]Dr. Yilan ChangCBC AUTO DIFFon 99-51-2810PZVQ #0.0 103/ulNormal0.0-0.1The [facility] HospitalComment on above:Performed By: #### CBC ####[facility] Dnoxrpclaa280[address] [place], [place] [address]Dr.Yilan ChangBasophils/100 WBC (Bld)0.2 %Normal0.2-2.0The [facility] HospitalComment on above:Performed By: #### CBC ####[facility] Boeboxquxz413[address] [place], [place] [address]Dr.Yilan ChangEO #0.0 103/ulNormal0.0-0.7The [facility] HospitalComment on above:Performed By: #### CBC ####[facility] Uubrssdbzl727[address] [place], [place] [address]Dr.Yilan ChangEosinophils/100 WBC (Bld)0.5 %Critically low0.9-7.0The [facility] HospitalComment on above:Performed By: #### CBC ####[facility] Xtannxlooq249994 [address] [place], [place] [address]Dr. Yilan ChangErythrocyte distribution width (RBC) [Ratio]14.3 %Jqhoxk69.0-15.0The [facility] HospitalComment on above:Performed By: #### CBC ####[facility] [address]ou[address] [place] [address]Dr.Soniya ChangHematocrit (Bld) [Volume fraction]30.1 %Critically low36.0-48.0The [facility] HospitalComment on above:Performed By: #### CBC ####[facility] Xfigdmbscg460[address] [place], [place] [address]Dr.Soniya ChangHemoglobin (Bld) [Mass/Vol]9.7 g/dL Critically low12.0-16.0The [facility] HospitalComment on above:Performed By: #### CBC ####[facility] Obmnjkibvb700[address] [place], [place] [address]Dr. Yilan ChangIG #0.02 10e3/ulNormal0.00-0.03The [facility] HospitalComment on above: Performed By: #### CBC ####[facility] Ykxndwjwyg866[address] [place], [place] [address]Dr.Gypsyjuan ChangIG %0.3 %Normal0.0-0.5The [facility] HospitalComment on above:Performed By: #### CBC ####[facility] Crfszravln016694 [address] [place], [place] [address]Dr.Soniya ChangLYMPH #0.9 103/ulCritically low1.2-3.8The [facility] HospitalComment on above:Performed By: #### CBC ####[facility] Stwviscdyi423[address] [place], [place] [address]Dr.Soniya ChangLymphocytes/100 WBC (Bld)13.8 %Critically low20.5-60.0The [facility] HospitalComment on above:Performed By: #### CBC ####[facility] Xffssimxos347[address] [place], [place] [address]Dr.Gypsyjuan ChangMANUAL DIFF REQ NONormalThe [facility] HospitalComment on above:Performed By: #### CBC ####[facility] Osw[address]ldjdi[address] [place] [address]Dr. Soniya ChiH (RBC) [Entitic mass]29.8 tiQsfuxf32.7-34.0The [facility] Comment on above:Performed By: #### CBC ####[facility] Oqhibqdrtw817[address] [place], [place] [address]Dr.Soniya ChiHC (RBC) [Mass/Vol]32.2 g/dL Iklbut82.9-35.2The [facility] HospitalComment on above:Performed By: #### CBC ####[facility] Doqftfqiyr384594 [address] [place], [place] [address]Dr. Soniya ChiMCV (RBC) [Entitic vol]92.6 pXEmpked31.0-99.0The [facility] Comment on above:Performed By: #### CBC ####[facility] Fpddrjzfio119[address] [place], [place] [address]Dr.Soniya AlonMONO #0.7 103/ulNormal0.3-0.8 The [facility] HospitalComment on above:Performed By: #### CBC ####[facility] Cecqcyerrl638294 [address] [place], [place] [address]Dr.Soniya Chi Monocytes/100 WBC (Bld)10.5 %Normal1.7-12.0The [facility] HospitalComment on above:Performed By: #### CBC ####[facility] Iesmpqfwqy353794 [address] [place], [place] [address]Dr.Soniya AlonNEUT #4.8 103/ulNormal1.4-6.5The [facility] HospitalComment on above:Performed By: #### CBC ####[facility] Oiyeckipan8417[address] [place], [place] [address]Dr.Soniya ChiNeutrophils/100 WBC (Bld)74.7 %Yixaqo88.0-75.0The [facility] HospitalComment on above:Performed By: #### CBC ####[facility] Kgwefjceyo695094 [address] [place], [place] [address]Dr.Soniya AlonPlatelet mean volume (Bld) [Entitic vol]10.6 fLNormal9.5-13.5 The [facility] HospitalComment on above:Performed By: #### CBC ####[facility] Tjcrteuegr479[address] [place], [place] [address]Dr.Soniya EvakwBJV198 103/ulCritically pzn109-972Sbz [facility] HospitalComment on above:Performed By: #### CBC ####[facility] Llunotclyj5838[address] [place], [place] [address]Dr.Soniya ChangRBC3.25 106/ulCritically low4.20-5.40[facility] Comment on above:Performed By: #### CBC ####[facility] Zllbpwvxnl153794 [address] [place], [place] [address]Dr.Soniya ChangWBC6.4 103/ulNormal4.0-11.0The [facility] HospitalComment on above:Performed By: #### CBC ####[facility] Eiehjhqsda3728[address] [place], [place] [address]Dr.Gypsyjuan AlonCORTISOLon 56-00-1702Fymctcrt07.0 ug/dLNoGeorgetown Behavioral HospitalComment on above:Result Comment: Cortisol AM 6.2 - 19.4 Cortisol PM 2.3 - 11.9Performed By: #### CORTISO ####[facility] Grwlluzfgt730[address] [place], [place] [address]Dr. Gypsyjuan AlonCULTURE URINEon 46-39-7603OCWTRPM URINEMetroHealth Parma Medical [facility] Comment on above:Performed By: #### URCX ####[facility] Pqsgtjxpre335[address] [place], [place] [address]Dr. Gypsyjuan ChangPROF CHEM 8 (BAS METB)on 77-22-5632Xvzai gap [Moles/Vol]11.9 mmol/LNormalThe [facility] HospitalComment on above:Performed By: #### BMP ####[facility] Pilpzmxhof2775[address] [place], [place] [address]Dr.Soniya ChangCalcium [Mass/Vol]9.6 mg/dLNormal 8.5-10.1The [facility] HospitalComment on above:Performed By: #### BMP ####[facility] Dpkprxfzks385[address] [place], [place] [address]Dr. Yilan ChangChloride [Moles/Vol]110 mmol/LCritically jihh77-622Ocb [facility] HospitalComment on above:Performed By: #### BMP ####[facility] Qbmiymikcm238[address] [place], [place] [address]Dr.Yilan ChangCO2 [Moles/Vol] 25.4 mmol/VPeamry48.0-32.0The [facility] HospitalComment on above:Performed By: #### BMP ####[facility] Ggpofhsrqr004[address] [place], [place] [address]Dr.Yilan ChangCreatinine [Mass/Vol]1.24 mg/dLCritically high0.55-1.02The [facility] HospitalComment on above:Performed By: #### BMP ####[facility] Mgmlzflwqj2700[address] [place], [place] [address]Dr.Yilan ChangEGFR-AF QHJQEREY30 mL/min/1.60v0Uohmrpayfk low>=60The [facility] HospitalComment on above: Performed By: #### BMP ####[facility] Flwrnhyxhd560[address] [place], [place] [address]Dr.Yilan ChangEGFR-NON AF JNXXSKYS11 mL/min/1.73m2 Critically low>=60The [facility] HospitalComment on above:Performed By: #### BMP ####[facility] Bcqhingfur456[address] [place], [place] [address]Dr. Yilan ChangGlucose [Mass/Vol]111 mg/dLCritically pfyq74-756Blp [facility] Comment on above:Performed By: #### BMP ####[facility] Auuzoabwjb808[address] [place], [place] [address]Dr.Yilan ChangPotassium [Moles/Vol]3.3 mmol/LCritically low3.5-5.1The [facility] HospitalComment on above:Performed By: #### BMP ####[facility] Ooespwirrh149694 [address] [place], [place] [address]Dr.Yilan ChangSodium [Moles/Vol]144 mmol/FPguxhh793-718Zfa [facility] HospitalComment on above:Performed By: #### BMP ####[facility] [address] [place] [address]Dr.Yilan ChangUrea nitrogen [Mass/Vol]17.0 mg/dLNormal7.0-18.0The [facility] HospitalComment on above: Performed By: #### BMP ####[facility] Kbazjkfarm694[address] [place], [place] [address]Dr.Yilan ChangUrea nitrogen/Creatinine [Mass ratio] 13.7 mg/mgNormalThe [facility] HospitalComment on above:Performed By: #### BMP ####[facility] Eetrytwfxv339[address] [place], [place] [address]Dr. Yilan ChangCBC AUTO DIFFon 65-44-9459PASB #0.0 103/ulNormal0.0-0.1The [facility] HospitalComment on above:Performed By: #### CBC ####[facility] Nxtwhebalu628[address] [place], [place] [address]Dr.Yilan ChangBasophils/100 WBC (Bld)0.2 %Normal0.2-2.0The [facility] HospitalComment on above:Performed By: #### CBC ####[facility] Ynvuiqdunf772494 [address] [place], [place] [address]Dr.Yilan ChangEO #0.0 103/ulNormal0.0-0.7The [facility] HospitalComtr[facility] on above:Performed By: #### CBC ####[facility] Bgdmhilkhl0536[address] [place], [place] [address]Dr.Yilan ChangEosinophils/100 WBC (Bld)0.3 %Critically low0.9-7.0The [facility] HospitalComment on above:Performed By: #### CBC ####[facility] Lakinhglxv982[address] [place], [place] [address]Dr. Yilan ChangErythrocyte distribution width (RBC) [Ratio]14.4 %Gvigjn29.0-15.0The [facility] HospitalComment on above:Performed By: #### CBC ####[facility] Txnunthfjb472394 [address] [place], [place] [address]Dr.Yilan ChangHematocrit (Bld) [Volume fraction]30.3 %Critically low36.0-48.0The [facility] HospitalComment on above:Performed By: #### CBC ####[facility] Midgnmgcwg1814[address] [place], [place] [address]Dr.Soniya ChiHemoglobin (Bld) [Mass/Vol]9.9 g/dL Critically low12.0-16.0The [facility] HospitalComment on above:Performed By: #### CBC ####[facility] Hegpkjqhyv2635[address] [place], [place] [address]Dr. Soniya ChiIG #0.02 10e3/ulNormal0.00-0.03The [facility] HospitalComment on above: Performed By: #### CBC ####[facility] Ohwsqnxtal324[address] [place], [place] [address]Dr.Soniya ChiIG %0.3 %Normal0.0-0.5The [facility] HospitalComment on above:Performed By: #### CBC ####[facility] Esvvzussyu7614[address] [place], [place] [address]Dr.Soniya ChiLYMPH #0.7 103/ulCritically low1.2-3.8The [facility] HospitalComment on above:Performed By: #### CBC ####[facility] Zfpnfamxlz2064[address] [place], [place] [address]Dr.Soniya ChiLymphocytes/100 WBC (Bld)11.7 %Critically low20.5-60.0The [facility] HospitalComment on above:Performed By: #### CBC ####[facility] Giskzbbcis796[address] [place], [place] [address]Dr.Soniya ChiMANUAL DIFF REQ NONormalThe [facility] HospitalComment on above:Performed By: #### CBC ####[facility] Vzzjmpgqfz569[address] [place], [place] [address]Dr. Soniya ChiST. [facility] (RBC) [Entitic mass]29.8 bkIpuxeq24.7-34.0The [facility] Comment on above:Performed By: #### CBC ####[facility] Wabqoxqgcv7610[address] [place], [place] [address]Dr.Soniya ChiMCHC (RBC) [Mass/Vol]32.7 g/dL Aeeiys10.9-35.2The [facility] HospitalComment on above:Performed By: #### CBC ####[facility] [address]ks[address] [place] [address]Dr. Soniya ChiMCV (RBC) [Entitic vol]91.3 lMIsgfvq38.0-99.0The [facility] Comment on above:Performed By: #### CBC ####[facility] [address]qxivxu[address] [place] [address]Dr.Soniya ChiMONO #0.5 103/ulNormal0.3-0.8 The [facility] HospitalComment on above:Performed By: #### CBC ####[facility] Ulskfiwksj5216[address] [place], [place] [address]Dr.Soniya Chi Monocytes/100 WBC (Bld)8.3 %Normal1.7-12.0The [facility] HospitalComment on above: Performed By: #### CBC ####[facility] Fydpohezot6822[address] [place], [place] [address]Dr.Soniya ChiNEUT #4.8 103/ulNormal1.4-6.5The [facility] HospitalComment on above:Performed By: #### CBC ####[facility] Earupwvvyh690694 [address] [place], [place] [address]Dr.Soniya ChiNeutrophils/100 WBC (Bld)79.2 %Critically high43.0-75.0The [facility] HospitalComment on above: Performed By: #### CBC ####[facility] Lmwvijxygl077694 [address] [place], [place] [address]Dr.Soniya ChiPlatelet mean volume (Bld) [Entitic vol] 10.4 fLNormal9.5-13.5The [facility] HospitalComment on above:Performed By: #### CBC ####[facility] Pskhlnemym905294 [address] [place], [place] [address]Dr. Soniya XpurrYND453 103/ulCritically hku416-082Gid [facility] HospitalComment on above:Performed By: #### CBC ####[facility] Cm[address]cwcp[address] [place] [address]Dr.Yilan ChangRBC3.32 106/ulCritically low4.20-5.40The [facility] HospitalComment on above:Performed By: #### CBC ####[facility] Arxlldoywg[address] [place] [address]Dr.Yilan ChangWBC6.1 103/ul Normal4.0-11.0The [facility] HospitalComment on above:Performed By: #### CBC ####[facility] Pvxjghiifi9[address] [place], [place] [address]Dr. Yilan ChangBASO #0.0 103/ulNormal0.0-0.1The [facility] HospitalComment on above: Performed By: #### CBC ####[facility] Szcujsulez493494 [address] [place], [place] [address]Dr.Yilan ChangBasophils/100 WBC (Bld)0.2 %Normal 0.2-2.0The Premier Healthment on above:Performed By: #### CBC ####[facility] Kbxngmnbct6836[address] [place], [place] [address]Dr.Yilan ChangEO # 0.1 103/ulNormal0.0-0.7The [facility] HospitalComment on above:Performed By: #### CBC ####[facility] Tajavaqwtk989[address] [place], [place] [address]Dr. Yilan ChangEosinophils/100 WBC (Bld)1.1 %Normal0.9-7.0The [facility] Comment on above:Performed By: #### CBC ####[facility] Tzqxjihbtg8[address] [place], [place] [address]Dr.Yilan ChangErythrocyte distribution width (RBC) [Ratio]14.1 %Ieedvy05.0-15.0The [facility] HospitalComment on above: Performed By: #### CBC ####[facility] Rzkhhrycvm0790[address] [place], [place] [address]Dr.Gypsylan ChangHematocrit (Bld) [Volume fraction]31.3 % Critically low36.0-48.0The [facility] HospitalComment on above:Performed By: #### CBC ####[facility] Ijgolsyiyi[address] [place] [address]Dr. Soniya ChiHemoglobin (Bld) [Mass/Vol]10.5 g/dLCritically low12.0-16.0The [facility] HospitalComment on above:Performed By: #### CBC ####[facility] Ohwolvxrnl518[address] [place], [place] [address]Dr.Soniya ChangIG #0.02 10e3/ulNormal0.00-0.03The [facility] HospitalComment on above:Performed By: #### CBC ####[facility] Srkkmgaasi588[address] [place], [place] [address]Dr. Soniya AlonIG %0.3 %Normal0.0-0.5The [facility] HospitalComment on above:Performed By: #### CBC ####[facility] Okqmylwvbl757[address] [place], [place] [address]Dr.Soniya ChiLYMPH #0.8 103/ulCritically low1.2-3.8The [facility] HospitalComment on above:Performed By: #### CBC ####[facility] Fidrkxvbue216[address] [place], [place] [address]Dr.Gypsyjuan ChiLymphocytes/100 WBC (Bld)13.4 %Critically low20.5-60.0The [facility] HospitalComment on above: Performed By: #### CBC ####[facility] Kbrbcmyppa910[address] [place], [place] [address]Dr.Gypsyjuan AlonMANUAL DIFF REQNONormalThe [facility] HospitalComment on above:Performed By: #### CBC ####[facility] Ikulowddzu308[address] [place], [place] [address]Dr.Soniya ChiMCH (RBC) [Entitic mass]30.1 msKeorlh51.7-34.0The [facility] HospitalComment on above: Performed By: #### CBC ####[facility] Qkyhuofhqg364[address] [place], [place] [address]Dr.Soniya ChiMCHC (RBC) [Mass/Vol]33.5 g/dLNormal 29.9-35.2The [facility] HospitalComment on above:Performed By: #### CBC ####[facility] Yqkvxiotbb[address] [place] [address]Dr. Soniya ChiMCV (RBC) [Entitic vol]89.7 rGQmpupa58.0-99.0The [facility] Comment on above:Performed By: #### CBC ####[facility] Qqvjbsstbw935[address] [place], [place] [address]Dr.Soniya ChiMONO #0.6 103/ulNormal0.3-0.8 The [facility] HospitalComment on above:Performed By: #### CBC ####[facility] Lhbtmlfaxu539[address] [place], [place] [address]DrJimmy Chi Monocytes/100 WBC (Bld)9.8 %Normal1.7-12.0The [facility] HospitalComment on above: Performed By: #### CBC ####[facility] Fptzvgadrq8867[address] [place], [place] [address]Dr.Soniya ChiNEUT #4.6 103/ulNormal1.4-6.5The [facility] HospitalComment on above:Performed By: #### CBC ####[facility] Yvbcdoxupl1000[address] [place], [place] [address]Dr.Soniya ChiNeutrophils/100 WBC (Bld)75.2 %Critically high43.0-75.0The [facility] HospitalComment on above: Performed By: #### CBC ####[facility] Vpzzwqjyko4301[address] [place], [place] [address]Dr.Soniya ChiPlatelet mean volume (Bld) [Entitic vol] 10.6 fLNormal9.5-13.5The [facility] HospitalComment on above:Performed By: #### CBC ####[facility] Lwvcewyxvl754[address] [place], [place] [address]Dr. Soniya ChiPLT128 103/ulCritically kbr538-423Bdw [facility] HospitalComment on above:Performed By: #### CBC ####[facility] Umdsigfgjo1410[address] [place], [place] [address]Dr.Soniya ChiRBC3.49 106/ulCritically low4.20-5.40The [facility] HospitalComment on above:Performed By: #### CBC ####[facility] Niikwjokdl546[address] [place], [place] [address]Dr.Soniya ChiWBC6.1 103/ul Normal4.0-11.0The [facility] HospitalComment on above:Performed By: #### CBC ####[facility] Mkatphmhno9110[address] [place], [place] [address]Dr. Soniya AlonFREE T4on 95-75-6967Qkhl T4 [Mass/Vol]0.93 ng/dLNormal0.76-1.46The [facility] HospitalComment on above:Performed By: #### B12FOL, FT4, FETIBC ####[facility] Epkyhsrhfe435[address] [place], [place] [address]Dr. Soniya ChiIRON AND TIBCon 05-28-2022% HUKWOYROSG42.6 %NormalThe [facility] on above:Performed By: #### B12FOL, FT4, FETIBC ####[facility] Uezgcnxltb12119[address] [place], [place] [address]Dr. Gypsyjuan ChiIron [Mass/Vol]94.0 ug/eFMgaast72.0-170.0The [facility] HospitalComtr[facility] on above: Performed By: #### B12FOL, FT4, FETIBC ####[facility] Hzieqsblds4767[address] [place], [place] [address]Dr. Soniya ChiTIBC AWMZUY547.0 ug/dLNormal 250.0-450.0The [facility] HospitalComment on above:Performed By: #### B12FOL, FT4, FETIBC ####[facility] Xzemwjuqrw019[address] [place], [place] [address]Dr. Soniya ChiPIEDM[facility] GLUCOSEon 89-90-1595Dpnsndg [Mass/Vol]123 mg/dLCritically zotl70-623Mhs [facility] HospitalComment on above:Performed By: #### POCGLUC ####[facility] Dksifcoklw452[address] [place], [place] [address]Dr. Yilan ChangPROF CHEM 8 (BAS METB)on 35-83-7296Myxdz gap [Moles/Vol] 11.2 mmol/LNormalThe [facility] HospitalComment on above:Performed By: #### BMP ####[facility] [address]qawkhtci[address] [place] [address]Dr. Yilan ChangCalcium [Mass/Vol]9.0 mg/dLNormal8.5-10.1The [facility] HospitalComment on above:Performed By: #### BMP ####[facility] Lhgcueaviv950[address] [place], [place] [address]Dr.Yilan ChangChloride [Moles/Vol]108 mmol/LCritically giwy62-882Qcp [facility] HospitalComment on above:Performed By: #### BMP ####[facility] Uafkigwtds7928[address] [place], [place] [address]Dr. Yilan ChangCO2 [Moles/Vol]26.4 mmol/XBstsyk71.0-32.0The [facility] HospitalComment on above:Performed By: #### BMP ####[facility] Voixkgmikq913[address] [place], [place] [address]Dr.Yilan ChangCreatinine [Mass/Vol]1.30 mg/dL Critically high0.55-1.02The [facility] HospitalComment on above:Performed By: #### BMP ####[facility] Arfkwvxktg249[address] [place], [place] [address]Dr.Yilan ChangEGFR-AF WMWVOJSF08 mL/min/1.62e2Bfgrxkiwcw low>=60The [facility] HospitalComment on above:Performed By: #### BMP ####[facility] Bgvisczkzo104[address] [place], [place] [address]Dr.Yilan ChangEGFR-NON AF PXFHGBWG69 mL/min/1.01g3Fhvrkrgphf low>=60The [facility] HospitalComtr[facility] on above: Performed By: #### BMP ####[facility] Zwyxnsmpcr564[address] [place], [place] [address]Dr.Yilan ChangGlucose [Mass/Vol]115 mg/dLCritically kcnx80-155Exq [facility] HospitalComment on above:Performed By: #### BMP ####[facility] V[address]wbsibto[address] [place] [address]Dr. Yilan ChangPotassium [Moles/Vol]3.6 mmol/LNormal3.5-5.1The [facility] Comment on above:Performed By: #### BMP ####[facility] Qxlrvqshja244[address] [place], [place] [address]Dr.Yilan ChangSodium [Moles/Vol]142 mmol/L Rwdjgm447-821Xhh [facility] HospitalComment on above:Performed By: #### BMP ####[facility] Evfsibijjh364[address] [place], [place] [address]Dr. Yilan ChangUrea nitrogen [Mass/Vol]20.0 mg/dLCritically high7.0-18.0The [facility] HospitalComment on above:Performed By: #### BMP ####[facility] Yneiknomlm775[address] [place], [place] [address]Dr.Yilan ChangUrea nitrogen/Creatinine [Mass ratio]15.4 mg/mgNormalThe [facility] HospitalComment on above:Performed By: #### BMP ####[facility] Jxqazcslnn4736[address] [place], [place] [address]Dr.Yilan ChangAnion gap [Moles/Vol]12.7 mmol/LNormal The [facility] HospitalComment on above:Performed By: #### BMP ####[facility] Glvuhdeizt7780[address] [place], [place] [address]Dr.Yilan Chi Calcium [Mass/Vol]9.1 mg/dLNormal8.5-10.1The [facility] HospitalComment on above: Performed By: #### BMP ####[facility] Skqpwhxnxh2367[address] [place], [place] [address]Dr.Yilan ChangChloride [Moles/Vol]107 mmol/LNormal 98-107The [facility] HospitalComment on above:Performed By: #### BMP ####[facility] Mjdwghicnq4601[address] [place], [place] [address]Dr.Yilan ChangCO2 [Moles/Vol]27.7 mmol/ZThssic74.0-32.0The [facility] HospitalComment on above: Performed By: #### BMP ####[facility] [address]leqomd[address] [place] [address]Dr.Yilan ChangCreatinine [Mass/Vol]1.25 mg/dL Critically high0.55-1.02The [facility] HospitalComtr[facility] on above:Performed By: #### BMP ####[facility] Ahjtqizwwi399[address] [place], [place] [address]Dr.Yilan ChangEGFR-AF FWJOWYDR37 mL/min/1.01u8Sckrvibvte low>=60The [facility] HospitalComtr[facility] on above:Performed By: #### BMP ####[facility] Ptggpuzkma607[address] [place], [place] [address]Dr.Yilan ChangEGFR-NON AF FVZPPQQN08 mL/min/1.06c4Kwmxtnejun low>=60The [facility] on above: Performed By: #### BMP ####[facility] Vnnmbmhvmy5816[address] [place], [place] [address]Dr.Yilan ChangGlucose [Mass/Vol]77 mg/dUBbpxwj79-400 The [facility] HospitalComtr[facility] on above:Performed By: #### BMP ####[facility] Dbvpwqsesq8987[address] [place], [place] [address]Dr.Yilan Chi Potassium [Moles/Vol]3.4 mmol/LCritically low3.5-5.1The [facility] on above:Performed By: #### BMP ####[facility] Aisuhnclil[address] [place], [place] [address]Dr.Yilan ChangSodium [Moles/Vol]144 mmol/LNormal 136-145The [facility] on above:Performed By: #### BMP ####[facility] Iwqjhuzhis7967[address] [place], [place] [address]Dr.Yilan ChangUrea nitrogen [Mass/Vol]21.0 mg/dLCritically high7.0-18.0The [facility] on above:Performed By: #### BMP ####[facility] Wrhlejrosj[address] [place], [place] [address]Dr.Yilan ChangUrea nitrogen/Creatinine [Mass ratio] 16.8 mg/mgNormalThe [facility] Healthment on above:Performed By: #### BMP ####[facility] Imjvxlenzk7164[address] [place], [place] [address]Dr. Soniya ChiVIT B12 AND FOLATEon 89-45-2967Prighywso (Vitamin B12) [Mass/Vol] 500.0 pg/ySNrsqry004.0-986.0The [facility] on above:Performed By: #### B12FOL, FT4, FETIBC ####[facility] Zqmewqpanu[address] [place], [place] [address]Dr. Soniya ChiVmcgkRHTGIV13.30 ng/mLNormal8.60-58.90The [facility] on above:Performed By: #### B12FOL, FT4, FETIBC ####[facility] Wrddnofknz[address] [place], [place] [address]Dr. Gypsyjuan ChangAMMONIAon 84-35-7284Xnnxcsm (P) [Moles/Vol]15 umol/VDkuiiu76-61Hcl [facility] on above:Performed By: #### AMM ####[facility] Xjhqjtokor[address] [place], [place] [address]Dr.Gypsyjuan ChiCBC AUTO DIFFon 09-53-3042LXVW #0.0 103/ulNormal0.0-0.1The [facility] on above: Performed By: #### CBC ####[facility] Qnobgedshx725[address] [place], [place] [address]Dr.Gypsyjuan ChangBasophils/100 WBC (Bld)0.4 %Normal 0.2-2.0The [facility] on above:Performed By: #### CBC ####[facility] Vywwjxowbx9364[address] [place], [place] [address]Dr.Gypsylan ChangEO # 0.1 103/ulNormal0.0-0.7The [facility] on above:Performed By: #### CBC ####[facility] Xqfpgzopcv2637[address] [place], [place] [address]Dr. Gypsyjuan ChangEosinophils/100 WBC (Bld)1.5 %Normal0.9-7.0The [facility] Comment on above:Performed By: #### CBC ####[facility] Wllcbueuwf907[address] [place], [place] [address]Dr.Soniya ChangErythrocyte distribution width (RBC) [Ratio]14.2 %Lvryiu98.0-15.0The [facility] HospitalComment on above: Performed By: #### CBC ####[facility] Klydahbqdk020[address] [place], [place] [address]Dr.Soniya ChangHematocrit (Bld) [Volume fraction]36.0 % Xyfkph20.0-48.0The [facility] HospitalComment on above:Performed By: #### CBC ####[facility] Zqtaefcwpw265[address] [place], [place] [address]Dr. Soniya ChangHemoglobin (Bld) [Mass/Vol]11.9 g/dLCritically low12.0-16.0The [facility] HospitalComment on above:Performed By: #### CBC ####[facility] Dkbqsnrzcq822[address] [place], [place] [address]Dr.Soniya ChangIG #0.02 10e3/ulNormal0.00-0.03The [facility] HospitalComment on above:Performed By: #### CBC ####[facility] Frrowxxwpj183[address] [place], [place] [address]Dr. Soniya ChangIG %0.4 %Normal0.0-0.5The [facility] HospitalComment on above:Performed By: #### CBC ####[facility] Mnvsonriak29[address] [place], [place] [address]Dr.Soniya ChangLYMPH #1.0 103/ulCritically low1.2-3.8The [facility] HospitalComment on above:Performed By: #### CBC ####[facility] Puzbjnyeqy217[address] [place], [place] [address]Dr.Soniya ChangLymphocytes/100 WBC (Bld)18.1 %Critically low20.5-60.0The [facility] HospitalComment on above: Performed By: #### CBC ####[facility] Fjfkyopsrw913[address] [place], [place] [address]Dr.Soniya ChiMANUAL DIFF REQNONormalThe [facility] HospitalComment on above:Performed By: #### CBC ####[facility] Daispejwky194[address] [place], [place] [address]Dr.Soniya ChiH (RBC) [Entitic mass]29.9 dnLhdyoh96.7-34.0The [facility] HospitalComment on above: Performed By: #### CBC ####[facility] Uxtdptavoj066[address] [place], [place] [address]Dr.Soniya ChiHC (RBC) [Mass/Vol]33.1 g/dLNormal 29.9-35.2The [facility] HospitalComment on above:Performed By: #### CBC ####[facility] Vtomwcnzip963094 [address] [place], [place] [address]Dr. Soniya ChiV (RBC) [Entitic vol]90.5 rPFgjejr20.0-99.0The [facility] Comment on above:Performed By: #### CBC ####[facility] Byhzjxbdlu917[address] [place], [place] [address]Dr.Soniya ChiMONO #0.3 103/ulNormal0.3-0.8 The [facility] HospitalComment on above:Performed By: #### CBC ####[facility] Pirvumvtge6780[address] [place], [place] [address]Dr.Soniya Chi Monocytes/100 WBC (Bld)5.4 %Normal1.7-12.0The [facility] HospitalComment on above: Performed By: #### CBC ####[facility] Prdkzprvcy067[address] [place], [place] [address]Dr.Soniya ChiNEUT #4.0 103/ulNormal1.4-6.5The [facility] HospitalComment on above:Performed By: #### CBC ####[facility] Hvvcmjguzt3928[address] [place], [place] [address]Dr.Soniya ChiNeutrophils/100 WBC (Bld)74.2 %Dmnwrf12.0-75.0The [facility] HospitalComment on above:Performed By: #### CBC ####[facility] [address] [place] [address]Dr.Soniya ChiPlatelet mean volume (Bld) [Entitic vol]10.0 fLNormal9.5-13.5 The [facility] HospitalComment on above:Performed By: #### CBC ####[facility] Figpbswavb[address] [place] [address]Dr.Soniya JbghaOSS776 103/ulCritically kva397-499Kbt [facility] HospitalComment on above:Performed By: #### CBC ####[facility] Avtmselhaq[address] [place] [address]Dr.Soniya ChangRBC3.98 106/ulCritically low4.20-5.40[facility] Comment on above:Performed By: #### CBC ####[facility] Uhmgkzkbll[address] [place] [address]Dr.Soniya ChangWBC5.4 103/ulNormal4.0-11.0The [facility] HospitalComment on above:Performed By: #### CBC ####[facility] Yytigmiuiv[address] [place], [place] [address]Dr.Soniya ChangCT STROKE HEAD WOon 55-41-4186DV STROKE HEAD WONormalGrand [facility] Joint [facility] District Memorial HospitalCTA HEAD WO W CONon 51-68-0643EOH HEAD WO W CONNormalGrand [facility] Joint [facility] Memorial HospitalCULTURE BLOODon 05-27-2022 Microscopic examination of blood, cultureCulture Observations: NO GROWTH AT 5 DAYS.NormalThe [facility] HospitalComment on above:Performed By: #### BLDCX2 ####[facility] Wtvtiidred609[address] [place], [place] [address]Dr. Soniya ChiMicroscopic examination of blood, cultureCulture Observations: NO GROWTH AT 5 DAYS.NormalGrand Lake Joint Township District Memorial HospitalComment on above:Performed By: #### BLDCX1 ####[facility] Nuhudtajcv255[address] [place], [place] [address]Dr. Soniya ChiCovid-19 PCR (CVDTBH)on 97-62-3838IDKH-CoV-2 (COVID-19) RNA DORIAN+probe Ql (Unsp spec)Not detectedNormalNOT DETECTEDThe [facility] Comment on above:Result Comment: When diagnostic testing is negative, the possibility of a false negative should be considered inthe context of a patient's recent exposures and the presence of clinical signs and sympt omsconsistent with SARS-CoV-2.This test is not yet approved or cleared by the [place] FDA. When there are no FDA-approved or cleared tests available, and other criteria are met, FDA can make tests available under an emergency access mechanism called an Emergency Use Authorization (EUA). The EUA for this test is supported by the [place] of Health and Human Service's declaration that circumstances exist to justify the emergency use of in vitro diagnostics for the detection and/or diagnosis of the virus that causes COVID-19. This EUA will remain in effect for the duration of the COVID-19declaration justifying emergency of IVDs, unless it is terminated or revoked by the FDA (after which the test may no longer be used).Performed By: #### CVDTB ####[facility] Rxmpvsogss347[address] [place], [place] [address]Dr. Soniya ChangER URINE PROFILEon 82-93-1264Tlhgmxwdn Ql (U)NegativeNormalNEGATIVEGrand [facility] Comment on above:Performed By: #### DENIZ SMITHRO ####[facility] Pcmxhlezgq[address] [place], [place] [address]Dr. Yilan ChangClarity (U) CLEARNormalCLEARGrand [facility] Joint [facility] District Memorial HospitalComment on above:Performed By: #### LUIS UMICRO ####[facility] Axhnocmvlo1048[address] [place], [place] [address]Dr. Yilan ChangColor (U)LT. YELLOWNormalYELLOWGrand Lake Joint Township District Memorial HospitalComment on above:Performed By: #### LUIS UMICRO ####[facility] Jcnhaqajik[address] [place], [place] [id number]. Gypsylan ChangERUAHDA micrscopic examination will be performed if indicated.NormalGrand Lake Joint Township District Memorial HospitalComment on above: Performed By: #### LUIS UMICRO ####[facility] Ubhdbxfemv66[address] [place], [place] [address]Dr. Yilan ChangGlucose Ql (U)NegativeNormalNEGATIVEGuernsey Memorial Hospital HospitalComment on above:Performed By: #### LUIS UMICRO ####[facility] Lmjescrwdb8[address] [place] [id number]. Yilan Chi Hemoglobin Ql (U)NegativeNormalNEGATIVEGuernsey Memorial Hospital HospitalComment on above: Performed By: #### LUIS UMICRO ####[facility] Fuhajlduwj[address] [place] [address]Dr. Yilan ChangKetones Ql (U)NegativeNormalNEGATIVEGuernsey Memorial Hospital HospitalComment on above:Performed By: #### LUIS UMICRO ####[facility] Paganlupco[address] [place] [address]Dr. Gypsyjuan Chi LEUKOCYTESSMALLAbnormalNEGATIVEGrand Lake Joint Township District Memorial HospitalComment on above:Performed By: #### LUIS UMICRO ####[facility] Xrqkibobrz4585 [place] [address]Dr. Yijuan ChangNitrite Ql (U)NegativeNormalNEGATIVEGrand Lake Joint Township District Memorial HospitalComment on above:Performed By: #### LUIS UMICRO ####[facility] Uwcysmszku6017 [place] [address]Dr. Yijuan ChangpH (U) 6.0 [pH]Normal5-9The [facility] HospitalComment on above:Performed By: #### LUIS UMICRO ####[facility] Lupidhjhpp9[address] [place], [place] [address]Ia. Yijuan ChiSPEC GRAVITY1.286Nqocdj1.005-<=1.025The [facility] Comment on above:Performed By: #### LUIS UMICRO ####[facility] Woqyblzohc24[address] [place] [address]Dr. Yilan ChangUA PROTEIN NegativeNormalNEGATIVE/ TRACEThe [facility]ley HospitalComment on above:Performed By: #### LUIS UMICRO ####[facility] Juqgesktpk[address] [place] [address]Dr. Soniya ChiUR MICRO INDINDICATEDMain Campus Medical Center on above:Performed By: #### ERUR, UMICRO ####[facility] Rsvaelpzmx[address] [place], [place] [id number]. Yilan ChangUrobilinogen Qn (U)0.2 {Casimiro'U}/dLNormal0.2 - 1.0The [facility] on above: Performed By: #### ERUR UMICRO ####[facility] Txflwwrfha[address] [place], [place] [id number]. Yilan ChangFREE T3on 61-27-7802NWSL T32.63 pg/mlL Normal2.18-3.98The [facility] on above:Performed By: #### FT3, TSH ####[facility] Rzfhrfrxto7034[address] [place], [place] [address]Dr. Yilan ChangINFLUENZA A AND B AGon 81-55-4623DGNEGTPAPSUJZRegency Hospital Cleveland WestComtrinity health [facility] on above:Result Comment: Negative for Flu A protein angiten. Infection due to Flu A cannot be ruled out. FluA angiten in the sample may be below the detection limit of the test.Performed By: #### INFLUAB ####[facility] Ignrvrahcw252[address] [place], [place] [address]Dr. Yilan ChangINFLUBNEGHSEE [facility] on above:Result Comment: Negative for Flu B protein antigen. Infection due to Flu B cannot be ruled out. FluB antigen in the sample may be below the detection limit of the test.Performed By: #### INFLUAB ####[facility] Aynfmkqsxd237[address] [place], [place] [address]Dr. Yilan ChangINFLUENZA A AGNegativeNormalNEGATIVE SEE COMMENTThe [facility] on above:Performed By: #### INFLUAB ####[facility] Raejyyatur040[address] [place], [place] [address]Dr. Yilan ChangINFLUENZA B AGNegativeNormalNEGATIVE SEE COMMENTThe [facility] Comment on above:Performed By: #### INFLUAB ####[facility] Wliocjztox295[address] [place], [place] [address]Dr. Soniya ChiINTERNAL CONTROLSWithin Normal LimitsNormalWithin Normal LimitsThe [facility] HospitalComment on above: Performed By: #### INFLUAB ####[facility] Matkauawlu332[address] [place], [place] [address]Dr. Soniya ChiLACTATE/LACTIC ACIDon 21-03-3434Heodwjc [Moles/Vol]1.2 mmol/LNormal0.4-1.9The [facility] HospitalComment on above: Performed By: #### LACT ####[facility] Qeyjslmxar416[address] [place], [place] [address]Dr. Soniya ChiPOINT OF CARE GLUCOSEon 05-27-2022 Glucose [Mass/Vol]89 mg/qUGhcixg53-271Frh [facility] HospitalComtrinity health [facility] hospital on above: Performed By: #### POCGLUC ####[facility] Oalapqefis[address] [place], [place] [address]Dr. Soniya ChiGlucose [Mass/Vol]89 mg/dMDfawhp59-704 The [facility] HospitalComment on above:Performed By: #### POCGLUC ####[facility] Mergvqoujv99[address] [place], [place] [address]Dr. Soniya ChiPROF 14(COMP METB)on 24-31-8333Yahhgpj [Mass/Vol]3.7 g/dLNormal3.4-5.0The [facility] HospitalComment on above:Performed By: #### CMP ####[facility] Pruqrxkfjj466[address] [place], [place] [address]Dr.Soniya Chi Albumin/Globulin [Mass ratio]0.9 {ratio}NormalThe [facility] HospitalComment on above:Performed By: #### CMP ####[facility] Tsiftyynhk075[address] [place], [place] [address]Dr.Soniya ChiALP [Catalytic activity/Vol]92 U/LNormal 46-116The [facility] HospitalComment on above:Performed By: #### CMP ####[facility] Qjbrmwotyh8213[address] [place], [place] [address]Dr.Soniya ChiALT [Catalytic activity/Vol]34 U/QGhtbcu40-22Lxw [facility] HospitalComment on above: Performed By: #### CMP ####[facility] M[address]ukleerud[address] [place] [address]Dr.Yijuan ChangAnion gap [Moles/Vol]11.0 mmol/LNormal The [facility] HospitalComment on above:Performed By: #### CMP ####[facility] Qasftvulns111[address] [place], [place] [address]Dr.Yijuan ChangAST [Catalytic activity/Vol]19 U/DTgpoae92-85Hpj [facility] HospitalComment on above: Performed By: #### CMP ####[facility] Tkjtrhwegr344[address] [place], [place] [address]Dr.Yijuan ChangBilirubin [Mass/Vol]1.0 mg/dLNormal 0.2-1.0The [facility] HospitalComment on above:Performed By: #### CMP ####[facility] Stljejbvcq2522[address] [place], [place] [address]Dr.Soniya Chi Calcium [Mass/Vol]10.2 mg/dLCritically high8.5-10.1The [facility] HospitalComment on above:Performed By: #### CMP ####[facility] Imftfwnvih6036[address] [place], [place] [address]Dr.Yijuan ChangChloride [Moles/Vol]103 mmol/LNormal 98-107The [facility] HospitalComment on above:Performed By: #### CMP ####[facility] Dgvissjdgn4085[address] [place], [place] [address]Dr.Yijuan ChangCO2 [Moles/Vol]31.6 mmol/RCandao41.0-32.0The [facility] HospitalComment on above: Performed By: #### CMP ####[facility] Eqwzffcfrn7516[address] [place], [place] [address]Dr.Yilan ChangCreatinine [Mass/Vol]1.15 mg/dL Critically high0.55-1.02The [facility] HospitalComment on above:Performed By: #### CMP ####[facility] Mjsyqaskuw915[address] [place], [place] [address]Dr.Yilan ChangEGFR-AF FVVKWRZT39 mL/min/1.52g9Doampqzgel low>=60The [facility] HospitalComment on above:Performed By: #### CMP ####[facility] Oiyqfsycso385[address] [place], [place] [address]Dr.Soniya ChangEGFR-NON AF QGGYIXEP99 mL/min/1.23l4Duipvmcmms low>=60The [facility] HospitalComment on above: Performed By: #### CMP ####[facility] Uglnjnfszo712[address] [place], [place] [address]Dr.Soniya ChangGlobulin (S) [Mass/Vol]4.0 g/dLNormalThe [facility] HospitalComment on above:Performed By: #### CMP ####[facility] Ofnzdbccbt201[address] [place], [place] [address]Dr.Soniya ChangGlucose [Mass/Vol]82 mg/eTPnxubb79-587Eud [facility] HospitalComment on above:Performed By: #### CMP ####[facility] Sqnnnokdof0436[address] [place], [place] [address]Dr.Soniya ChangPotassium [Moles/Vol]3.6 mmol/LNormal3.5-5.1The [facility] HospitalComment on above:Performed By: #### CMP ####[facility] Pxyfkqhrzl6640[address] [place], [place] [address]Dr.Soniya ChangProtein [Mass/Vol]7.7 g/dLNormal6.4-8.2[facility] HospitalComment on above:Performed By: #### CMP ####[facility] Hnyoudrkrf960[address] [place], [place] [address]Dr.Gypsylan ChangSodium [Moles/Vol]142 mmol/IYkvmzk811-899Olo [facility] HospitalComment on above:Performed By: #### CMP ####[facility] Jjhbmzbhpc0414[address] [place], [place] [address]Dr.Soniya ChangUrea nitrogen [Mass/Vol]31.0 mg/dLCritically high7.0-18.0The [facility] HospitalComment on above:Performed By: #### CMP ####[facility] Oqenfkawwc536[address] [place], [place] [address]Dr.Yilan ChangUrea nitrogen/Creatinine [Mass ratio] 27.0 mg/mgNoGeorgetown Behavioral HospitalComment on above:Performed By: #### CMP ####[facility] Rtgmrlagih[address] [place] [address]Dr. Gypsyjuan ChangTSHon 60-69-5121WAC6.165 uIU/mLCritically high0.358-3.740The [facility] HospitalComment on above:Performed By: #### FT3, TSH ####[facility] Ycfbmhdupi[address] [place] [address]Dr. Soniya ChangURINE MICROSCOPIC ONLYon 98-09-9627YGFOLFVMIQQZVQanbqgtpEXDG SEENGrand [facility] Hospital Comment on above:Performed By: #### DENIZ SMITHRO ####[facility] [address]zljk[address] [place] [address]Dr. Soniya ChangBacteria identified Cx Nom (U)INDICATEDNoGeorgetown Behavioral HospitalComment on above: Performed By: #### DENIZ SMITHRO ####[facility] Wvajbmunpk4741 [place] [address]Dr. Soniya ChangCASTNONE SEENNormalNONE SEENGrand [facility] Joint [facility] District Memorial HospitalComment on above:Performed By: #### DENIZ SMITHRO ####[facility] Pwhgghnftb22[address] [place] [address]Dr. Soniya ChangCrystals LM Nom (Urine sed)NONE SEENNormalNONE SEENThe [facility] HospitalComment on above: Performed By: #### DENIZ SMITHRO ####[facility] Ukktfrizhh4919 [place] [address]Dr. Soniya ChangEpithelial cells LM Ql (Urine sed)FEW AbnormalNONE SEEN /RAREThe [facility] HospitalComment on above:Performed By: #### LUIS SMITHICRO ####[facility] Tsghcikkzj6[address] [place] [address]Dr. Soniya ChangMUCOUSNONE SEENNormalNONE SEENGrand Lake Joint Township District Memorial HospitalComment on above:Performed By: #### DENIZ SMITHRO ####[facility] Cytsxosuog[address] [place], [place]Dr. Soniya ChiRBCNONE SEENAbnormal0-2The [facility] HospitalComment on above:Performed By: #### MARCOS SMITH ####[facility] Qmblsldniv9433 [place], [place]Dr. Soniya ChangWBC2-5 AbnormalNONE SEENThe [facility] HospitalComment on above:Performed By: #### MARCOS SMITH ####[facility] Jndbgiyqyq9[address] [place], [place] [address]Te. Soniay ChangXR CHEST 1 Von 20-39-5720KF CHEST 1 VNormalGrand Lake Joint Township District Memorial HospitalCovid-19 PCR (CVDTB)on 71-97-7913EGTA-CoV-2 (COVID-19) RNA DORIAN+probe Ql (Unsp spec)Not detectedNormalNOT DETECTEDThe [facility] HospitalComment on above: Result Comment: This test is not yet approved or cleared by the [place] FDA. When there are no FDA-approved or cleared tests available, and other criteria are met, FDA can make tests available under an emergency access mechanism called an Emergency Use Authorization (EUA). The EUA for this test is supported by the [place] of Health and Human Service's (HHS's) declaration [...] presence of clinical signs and symptomsconsistent with SARS-CoV-2.Performed By: #### CVDTBH ####[facility] Gqmtsmgzxh8[address] [place], [place] [address]Qd. Soniya ChiC AUTO DIFFon 03-38-2100UUJX #0.0 103/ulNormal0.0-0.1The [facility] HospitalComment on above:Performed By: #### CBC ####[facility] Ahrolwhveb2334[address] [place], [place] [address]Dr.Yilan ChangBasophils/100 WBC (Bld)0.4 %Normal 0.2-2.0The [facility] HospitalComment on above:Performed By: #### CBC ####[facility] Qpelmpbijw387[address] [place], [place] [address]Dr.Yilan ChangEO # 0.1 103/ulNormal0.0-0.7The [facility] HospitalComment on above:Performed By: #### CBC ####[facility] Ktbvkltrhy914[address] [place], [place] [address]Dr. Yilan ChangEosinophils/100 WBC (Bld)1.9 %Normal0.9-7.0The [facility] Comment on above:Performed By: #### CBC ####[facility] Oqrsnuhjen807[address] [place], [place] [address]Dr.Yilan ChangErythrocyte distribution width (RBC) [Ratio]13.4 %Dkwzdh39.0-15.0The [facility] HospitalComment on above: Performed By: #### CBC ####[facility] Yacdojkpaz8540[address] [place], [place] [address]Dr.Gypsylan ChangHematocrit (Bld) [Volume fraction]37.0 % Thhhku26.0-48.0The [facility] HospitalComment on above:Performed By: #### CBC ####[facility] Hsjlsqyfsf525[address] [place], [place] [address]Dr. Gypsylan ChangHemoglobin (Bld) [Mass/Vol]12.1 g/yYBkpxok61.0-16.0The [facility] HospitalComment on above:Performed By: #### CBC ####[facility] Upnthrxarm7523[address] [place], [place] [address]Dr.Yilan ChangIG #0.01 10e3/ulNormal0.00-0.03The [facility] HospitalComment on above:Performed By: #### CBC ####[facility] Umkdcxrjmi232[address] [place], [place] [address]Dr. Yilan ChangIG %0.2 %Normal0.0-0.5The [facility] HospitalComment on above:Performed By: #### CBC ####[facility] Ppgnoyhtna9[address] [place], [place] [address]DrKarolinaSoniya ChiCATHOLIC HEALTHH #1.8 103/ulNormal1.2-3.8The [facility] Comment on above:Performed By: #### CBC ####[facility] Snyodfpxxa44[address] [place], [place] [address]Dr.Soniya ChiMohawk Valley General Hospitalhocytes/100 WBC (Bld)30.9 %Udeppy92.5-60.0The [facility] HospitalComment on above:Performed By: #### CBC ####[facility] Frywsgeqxt0640[address] [place], [place] [address]DrKarolina Soniya ChiMANUAL DIFF REQNONormalThe [facility] HospitalComment on above: Performed By: #### CBC ####[facility] Efrepdoiqo2445[address] [place], [place] [address]Dr.Soniya ChiST. [facility]ANCIS [facility] (RBC) [Entitic mass]29.7 pgNormal 26.7-34.0The [facility] HospitalComment on above:Performed By: #### CBC ####[facility] Gwumznwhxf99[address] [place], [place] [address]DrKarolina Soniya ChiST. ELIZAB[facility] (RBC) [Mass/Vol]32.7 g/eACqttod24.9-35.2[facility] Comment on above:Performed By: #### CBC ####[facility] Fuwosngsfq932[address] [place], [place] [address]DrKarolinaSoniya ChiV (RBC) [Entitic vol]90.7 fL Gjwpyv27.0-99.0The [facility] HospitalComment on above:Performed By: #### CBC ####[facility] Wfzojvrkln[address] [place], [place] [address]Karolina Soniya ChiBARTON COUNTY MEMORIAL HOSPITALO #0.4 103/ulNormal0.3-0.8The [facility] HospitalComment on above: Performed By: #### CBC ####[facility] Kqlxypnxlf232[address] [place], [place] [address]Dr.Soniya ChangMonocytes/100 WBC (Bld)6.5 %Normal 1.7-12.0The [facility] HospitalComment on above:Performed By: #### CBC ####[facility] Rqsukicbhe50[address] [place] [address]Dr. Gypsylan ChangNEUT #3.4 103/ulNormal1.4-6.5The [facility] HospitalComment on above: Performed By: #### CBC ####[facility] Bnisovbseu2924[address] [place], [place] [address]Dr.Gypsylan ChangNeutrophils/100 WBC (Bld)60.1 %Normal 43.0-75.0The [facility] HospitalComment on above:Performed By: #### CBC ####[facility] Zrzbibpnuo98[address] [place], [place] [address]Dr. Soniya ChangPlatelet mean volume (Bld) [Entitic vol]10.0 fLNormal9.5-13.5The [facility] HospitalComment on above:Performed By: #### CBC ####[facility] Euirkzvoyk059[address] [place], [place] [address]Dr.Soniya PiimwYWD421 103/ul Goqgdv424-550Yaz [facility] HospitalComment on above:Performed By: #### CBC ####[facility] Tdqshouneb467[address] [place], [place] [address]Dr. Soniya ChangRBC4.08 106/ulCritically low4.20-5.40The [facility] HospitalComment on above:Performed By: #### CBC ####[facility] Tvmnioohqw48[address] [place], [place] [address]Dr.Soniya ChangWBC5.7 103/ulNormal4.0-11.0The [facility] HospitalComment on above:Performed By: #### CBC ####[facility] Ncfirgwryl[address] [place], [place] [address]Dr.Yilan ChangFREE T3on 29-43-2981QWUY T32.90 pg/mlLNormal2.18-3.98The [facility] HospitalComment on above:Performed By: #### FT3, LIPID, CMP, TSH ####[facility] [address]yrkdwtqln[address] [place] [id number]. Yilan ChangFREE T4on 29-94-3715Xrrk T4 [Mass/Vol]0.91 ng/dLNormal0.76-1.46The [facility] Comment on above:Performed By: #### FT4 ####[facility] Zbpiuejwtt040[address] [place] [id number].Yilan ChangLIPID PROFILEon 04-23-2022 CHOL-HDL RATIO NORMSEE BELOWNoGeorgetown Behavioral HospitalComment on above:Result Comment: 3.3 - 4.4 LOW RISK 4.4 - 7.1 AVERAGE RISK 7.1 - 11.0 MODERATE RISK >11.0 HIGH RISKPerformed By: #### FT3, LIPID, CMP, TSH ####[facility] Dbxlzcmcjq[address] [place] [address]Dr. Yilan ChangCholesterol [Mass/Vol]211 mg/dLCritically high<=200The [facility] HospitalComment on above: Performed By: #### FT3, LIPID, CMP, TSH ####[facility] Bmzisdidxs69[address] [place] [id number]. Yilan ChangCholesterol in HDL [Mass/Vol] 109 mg/dLCritically buli34-37Ccy [facility] City HospitalComment on above:Performed By: #### FT3, LIPID, CMP, TSH ####[facility] Htbiopaixd[address] [place] [id number]. Yilan ChangCholesterol in LDL [Mass/Vol]70.2 mg/dL NormalThe [facility] City HospitalComment on above:Performed By: #### FT3, LIPID, CMP, TSH ####[facility] Wrrffxrnyg38[address] [place] [id number]. Yilan ChangCholesterol.total/Cholesterol in HDL [Mass ratio]1.9 {ratio}Normal The [facility] HospitalCom[facility] on above:Performed By: #### FT3, LIPID, CMP, TSH ####[facility] Vubjqmebny[address] [place] [address]Dr. Yilan ChangHDL NORMAL> or = 60 mg/dl - LOW CARDIOVASCULAR RISK <40 mg/dl - HIGH CARDIOVASCULAR RISKMetroHealth Parma Medical CenterComment on above:Performed By: #### FT3, LIPID, CMP, TSH ####[facility] Jfzelnjzen[address] [place] [address]Dr. Soniya ChangLDL CALC NORMALSEE BELOWMetroHealth Parma Medical CenterComment on above:Result Comment: <100 mg/dl OPTIMAL 100 - 129 mg/dl NEAR OR ABOVE OPTIMAL 130 - 159 mg/dl BORDERLINE HIGH 160 - 189 mg/dl HIGH >190 mg/dl VERY HIGHPerformed By: #### FT3, LIPID, CMP, TSH ####[facility] Lmpjwumqqc[address] [place] [address]Dr. Soniya Chi Triglyceride [Mass/Vol]159 mg/dLCritically high<=150The [facility] HospitalComment on above:Performed By: #### FT3, LIPID, CMP, TSH ####[facility] Mvmymitvcm[address] [place] [address]Dr. Soniya ChiVLDL CALC31.8 mg/dLNoGeorgetown Behavioral HospitalComment on above:Performed By: #### FT3, LIPID, CMP, TSH ####[facility] Wwjizriwny[address] [place] [address]Dr. Soniya ChiPROF 14(COMP METB)on 94-55-2571Qdfxefm [Mass/Vol]3.9 g/dL Normal3.4-5.0The [facility] HospitalComment on above:Performed By: #### FT3, LIPID, CMP, TSH ####[facility] Lsdmkhqaaw[address] [place] [address]Dr. Soniya ChiAlbumin/Globulin [Mass ratio]1.0 {ratio}NormalThe [facility] HospitalComtrinity health [facility] hospital on above:Performed By: #### FT3, LIPID, CMP, TSH ####[facility] Whpssorsjq[address] [place] [address]Dr. Soniya ChiALP [Catalytic activity/Vol]76 U/PQzxfra77-613Ztj [facility] Comment on above:Performed By: #### FT3, LIPID, CMP, TSH ####[facility] Jwfmtnonbp[address] [place] [address]Dr. Yilan ChangALT [Catalytic activity/Vol]35 U/XQkmjiw59-58Sfj Premier Healthment on above:Performed By: #### FT3, LIPID, CMP, TSH ####[facility] Icqhznlvtg94[address] [place] [address]Dr. Yilan ChangAnion gap [Moles/Vol]11.8 mmol/LNormal The [facility] HospitalComment on above:Performed By: #### FT3, LIPID, CMP, TSH ####[facility] Jbtkacqbug[address] [place] [address]Dr. Yilan ChangAST [Catalytic activity/Vol]14 U/LCritically vjh50-99Uia [facility] HospitalComtr[facility] on above:Performed By: #### FT3, LIPID, CMP, TSH ####[facility] Klcyrgmpgh26[address] [place] [address]Dr. Yilan Chi Bilirubin [Mass/Vol]0.6 mg/dLNormal0.2-1.0The [facility] HospitalComment on above: Performed By: #### FT3, LIPID, CMP, TSH ####[facility] Albwjvcldq[address] [place] [address]Dr. Yilan ChangCalcium [Mass/Vol]10.1 mg/dL Normal8.5-10.1The [facility] on above:Performed By: #### FT3, LIPID, CMP, TSH ####[facility] Afuhlaoxvy[address] [place] [address]Dr. Yilan ChangChloride [Moles/Vol]103 mmol/WLtiqjn88-419Vzm [facility] HospitalComment on above:Performed By: #### FT3, LIPID, CMP, TSH ####[facility] Akyotsepmt[address] [place], [place] [address]Dr. Yilan ChangCO2 [Moles/Vol]29.8 mmol/GLcqfwv86.0-32.0The [facility] HospitalComment on above: Performed By: #### FT3, LIPID, CMP, TSH ####[facility] Gjdhfttfev[address] [place], [place] [address]Dr. Yilan ChangCreatinine [Mass/Vol]1.17 mg/dLCritically high0.55-1.02The [facility] HospitalComment on above:Performed By: #### FT3, LIPID, CMP, TSH ####[facility] Hugvqtawvh[address] [place] [address]Dr. Yilan ChangEGFR-AF DOWYYXMR74 mL/min/1.73m2 Critically low>=60The [facility] HospitalComment on above:Performed By: #### FT3, LIPID, CMP, TSH ####[facility] Vwjzodpqkr65[address] [place] [address]Dr. Yilan ChangEGFR-NON AF LFJOKBUR93 mL/min/1.43h9Sdntdudiwg low>=60 The [facility] HospitalComment on above:Performed By: #### FT3, LIPID, CMP, TSH ####[facility] Ralbunjifc[address] [place] [address]Dr. Yilan ChangGlobulin (S) [Mass/Vol]3.9 g/dLNormalThe [facility] HospitalComment on above:Performed By: #### FT3, LIPID, CMP, TSH ####[facility] Ffjolfcldo[address] [place] [address]Dr. Yilan ChangGlucose [Mass/Vol]94 mg/yYSfjxzy83-640Aqe [facility] Healthment on above:Performed By: #### FT3, LIPID, CMP, TSH ####[facility] Ogkdycelpv33[address] [place] [address]Dr. Yilan ChangPotassium [Moles/Vol]3.6 mmol/LNormal 3.5-5.1The [facility] Healthment on above:Performed By: #### FT3, LIPID, CMP, TSH ####[facility] Bpjznjjoma94[address] [place], [place] [address]Dr. Yilan ChangProtein [Mass/Vol]7.8 g/dLNormal6.4-8.2The [facility] Comment on above:Performed By: #### FT3, LIPID, CMP, TSH ####[facility] Vtecanrnos98[address] [place], [place] [address]Dr. Yilan ChangSodium [Moles/Vol]141 mmol/TOcagcw384-188Hel [facility] HospitalComment on above: Performed By: #### FT3, LIPID, CMP, TSH ####[facility] Irgjbnfhsk74[address] [place] [address]Dr. Soniya ChangUrea nitrogen [Mass/Vol]27.0 mg/dLCritically high7.0-18.0The [facility] HospitalComment on above:Performed By: #### FT3, LIPID, CMP, TSH ####[facility] Ccwtejficf27[address] [place] [address]Dr. Yilan ChangUrea nitrogen/Creatinine [Mass ratio] 23.1 mg/mgNormalThe [facility] HospitalComment on above:Performed By: #### FT3, LIPID, CMP, TSH ####[facility] Oyypmxjoet7[address] [place] [address]Dr. Gypsyjuan ChangTSHon 35-82-0920XKR0.933 uIU/mLCritically high 0.358-3.740[facility] Memorial HospitalComment on above:Performed By: #### FT3, LIPID, CMP, TSH ####[facility] Guoaqxsnlm609[address] [place], [place] [address]Dr. Soniya ChiUA (CLEAN/CATCH) MAINTENANCE INSPECTOR/MICRO IF IND.on 53-89-8494Prlldpwos Ql (U)NegativeNormalNEGATIVEGrand Lake Joint Township District Memorial HospitalComment on above:Performed By: #### UACSLUIS UMICRO ####[facility] Huzzahvdii[address] [place], [place] [address]Dr. Soniya ChangClarity (U)CLEARNormalCLEARGrand Lake Joint [facility] District Memorial HospitalComment on above:Performed By: #### UACSLUIS UMICRO ####[facility] Bwrqknskat[address] [place], [place] [address]Dr. Soniya ChangColor (U)LT. YELLOWNormalYELLOWGrand Lake Joint Township District Memorial HospitalComment on above:Performed By: #### UACSIND UMICRO ####[facility] Rtpcjctzdl[address] [place], [place] [address]Dr. Yilan ChangGlucose Ql (U)NegativeNormalNEGATIVEThe [facility] HospitalComment on above:Performed By: #### CHUY UMICRO ####[facility] Sbyibimqjd6[address] [place] [address]Dr. Gypsylan ChangHemoglobin Ql (U)NegativeNormalNEGATIVEThe [facility] HospitalComment on above:Performed By: #### CHUY UMICRO ####[facility] Txkkbtmqoe75[address] [place] [address]Dr. Soniya ChiKetones Ql (U)NegativeNormal NEGATIVEThe [facility] HospitalComment on above:Performed By: #### CHUY UMICRO ####[facility] Ucnasyjlud30[address] [place], [place] [address]Dr. Soniya ChiLEUKOCYTESTRACEAbnormalNEGATIVEThe [facility] HospitalComment on above: Performed By: #### CHUY UMICRO ####[facility] Nkcnkviqbz48[address] [place], [place] [address]Dr. Soniya ChangNitrite Ql (U)NegativeNormal NEGATIVEGrand Lake Joint Township District Memorial HospitalComment on above:Performed By: #### CHUY UMICRO ####[facility] Ashmyfmbkf284[address] [place], [place] [address]Dr. Soniya ChipH (U)5.5 [pH]Normal5-9The [facility] HospitalComment on above: Performed By: #### CHUY UMICRO ####[facility] Zorpzaamge9[address] [place], [place] [address]Dr. Soniya ChiSPEC GRAVITY1.020Normal 1.005-<=1.025The [facility] HospitalComment on above:Performed By: #### CHUY UMICRO ####[facility] Lggnhftkaf7[address] [place], [place] [address]Dr. Soniya ChiUA PROTEINNegativeNormalNEGATIVE/ TRACEThe [facility] Comment on above:Performed By: #### CHUY UMICRO ####[facility] Jirbrbnicx47[address] [place], [place] [address]Dr. Soniya ChiUR MICRO IND INDICATEDNormalThe [facility]kley HospitalComment on above:Performed By: #### CHUY UMICRO ####[facility] Hatdhoboia[address] [place] [address]Dr. Soniya ChangUrobilinogen Qn (U)0.2 {Casimiro'U}/dLNormal0.2 - 1.0The [facility] HospitalComment on above:Performed By: #### CHUY UMICRO ####[facility] Laoxqktrrn[address] [place] [address]Dr. Soniya ChiURINE MICROSCOPIC ONLYon 41-60-9608PZGQNGZDINRV SEENNormalNONE SEEN The [facility] HospitalComtr[facility] on above:Performed By: #### LUIS VERAICRO ####[facility] Qevwpoykzo060[address] [place], [place] [address]Dr. Soniya ChangBacteria identified Cx Nom (U)NOT INDICATEDMetroHealth Parma Medical CenterComtrinity health oak[facility] hospital on above:Performed By: #### LUIS VERAICRO ####[facility] Jpufhtfzee01[address] [place], [place] [address]Dr. Soniya ChangCAST NONE SEENNormalNONE SEENThe [facility] HospitalComtr[facility] health [facility] hospital on above:Performed By: #### LUIS VERAICRO ####[facility] Apitwbatsh69[address] [place], [place] [address]Dr. Soniya ChangCrystals LM Nom (Urine sed)NONE SEENNormalNONE SEENThe [facility] HospitalComtr[facility] health [facility] hospital on above:Performed By: #### LUIS VERAICRO ####[facility] Dxdeoxnnuc0[address] [place] [address]Dr. Soniya ChangEpithelial cells LM Ql (Urine sed)FEWAbnormalNONE SEEN /RAREThe [facility] HospitalComtrinity health [facility] hospital on above:Performed By: #### LUIS VERAICRO ####[facility] Ojeoreaniq[address] [place] [address]Dr. Soniya ChiMUCOUSTRACEAbnormalNONE SEENThe [facility] HospitalComment on above: Performed By: #### LUIS VERAICRO ####[facility] Ywidlhurmm6834 [place] [id number]. Yilan ChangRBCNONE SEENAbnormal0-2[facility] HospitalComment on above:Performed By: #### MARCOS VERA ####[facility] Kynaeoytur1303 [place] [address]Dr. Yilan ChangWBC0-2AbnormalNONE SEENGrand Lake Joint Township District Memorial HospitalComment on above: Performed By: #### MARCOS VERA ####[facility] Ratctnlmhw24[address] [place] [address]Dr. Yilan ChangMG MAMM SCREEN 3D PANCHITO CADon 40-35-4814WH MAMM SCREEN 3D PANCHITO CADNormOhioHealth Pickerington [facility] Hospital HospitalCULTURE URINEon 87-46-8311HRYJOUB URINENormUniversity Hospitals Beachwood Medical CenterComment on above:Performed By: #### URCX ####[facility] Axejfmzayw[address] [place] [address]Dr. Yilan ChangER URINE PROFILEon 79-87-8137Nnhwwjopa Ql (U)NegativeNormal NEGATIVEGrand Lake Joint Township District Memorial HospitalComment on above:Performed By: #### LUIS RODRÍGUEZ ####[facility] Xclqclrkhc[address] [place], [place] [address]Dr. Yilan ChangClarity (U)SL CLOUDYAbnormalCLEARThOhioHealth O'Bleness HospitalComment on above:Performed By: #### NONA RODRÍGUEZR ####[facility] Rhwmefkuhc4675 [place] [address]Dr. Yilan ChangColor (U)YELLOWNormalYELLOWGrand Lake Joint Township District Memorial HospitalComment on above:Performed By: #### NONA RODRÍGUEZR ####[facility] Lapkxiivhk64[address] [place], [place] [address]Dr. Soniya ChangERUAHD A micrscopic examination will be performed if indicated.NormalGrand Lake Joint Township District Memorial HospitalComment on above:Performed By: #### MARCOS ERUR ####[facility] Hugpfasynv344[address] [place], [place] [address]Dr. Gypsylan ChangGlucose Ql (U) NegativeNormalNEGATIVEUniversity Hospitals Elyria Medical Centerue HospitalComment on above:Performed By: #### MARCOS, ERUR ####[facility] Klklszsdyv8372 [place] [address]Dr. Yilan ChangHemoglobin Ql (U)LARGEAbnormalNEGATIVEThe [facility] Comment on above:Performed By: #### MARCOS, ERUR ####[facility] Lrxyosfkcs8197 [place] [address]Dr. Yilan ChangKetones Ql (U) NegativeNormalNEGATIVEThe [facility] HospitalComment on above:Performed By: #### MARCOS, ERUR ####[facility] Zfqggsjcuv22[address] [place] [address]Dr. Yilan ChangLEUKOCYTESLARGEAbnormalNEGATIVEGuernsey Memorial Hospital HospitalComment on above:Performed By: #### MARCOS ERUR ####[facility] Sflyniybhq[address] [place], [place] [address]r. Yilan ChangNitrite Ql (U)NegativeNormal NEGATIVEGrand Lake Joint Township District Memorial HospitalComment on above:Performed By: #### MARCOS ERUR ####[facility] Lptggwxhfx[address] [place], [place] [address]Dr. Yilan ChangpH (U)6.5 [pH]Normal5-9The [facility] HospitalComment on above: Performed By: #### MARCOS, ERUR ####[facility] Ayqvryostv6003 [place] [address]Dr. Yilan ChangProtein (U) [Mass/Vol]100 mg/dLAbnormal NEGATIVE/ TRACEThe [facility] HospitalComment on above:Performed By: #### MARCOS, ERUR ####[facility] Cpwghrftbo9821 [place] [address]Dr. Yilan ChangSPEC GRAVITY<=1.774Cbhxsprl9.005-<=1.025The [facility] HospitalComment on above:Performed By: #### MARCOS, ERUR ####[facility] Mdjapwzqac3281 [address] Yilan ChangUR MICRO INDINDICATEDNoGeorgetown Behavioral HospitalComment on above:Performed By: #### MARCOS ERUR ####[facility] Rvoaluwqmb1343 [place] [address]Dr. Soniya Chi Urobilinogen Qn (U)0.2 {Casimiro'U}/dLNormal0.2 - 1.0The [facility] HospitalComment on above:Performed By: #### MARCOS, ERUR ####[facility] Daimtzsxqt5369 [place] [address]Dr. Soniya ChiURINE MICROSCOPIC ONLYon 76-21-3870AJPROZUPXAOATFQDShfhbfzeBKWO SEENThe [facility] HospitalComment on above:Performed By: #### MARCOS ERUR ####[facility] Fqvftgefkp0706 [place] [address]Dr. Soniya ChiBacteria identified Cx Nom (U) INDICATEDMetroHealth Parma Medical CenterComment on above:Performed By: #### MARCOS ERUR ####[facility] Nfmmwgcryc[address] [place], [place] [address]Dr. Soniya ChangCASTNONE SEENNormalNONE SEENGrand Lake Joint Township District Memorial HospitalComtrinity health [facility] hospital on above: Performed By: #### MARCOS ERUR ####[facility] Xpaysorrfy[address] [place], [place] [address]Dr. Soniya ChiCrystals LM Nom (Urine sed)NONE SEEN NormalNONE SEENThe [facility] HospitalComtrinity health oak[facility] hospital on above:Performed By: #### MARCOS, ERUR ####[facility] Kgjxqyilpc7648 [place] [address]Dr. Soniya ChangEpithelial cells LM Ql (Urine sed)FEWAbnormalNONE SEEN /RAREThe [facility] HospitalComtrinity health oak[facility] hospital on above:Performed By: #### MARCOS, ERUR ####[facility] Dxaypxfzrl8081 [place] [address]Dr. Soniya ChangMUCOUS NONE SEENNormalNONE SEENThe [facility] HospitalComment on above:Performed By: #### LUIS RODRÍGUEZ ####[facility] Hfmripfidi7367 [place], [place]Dr. Soniya ChiUawmbCUN47-52Oqgxkfvt2-4Lqb [facility] on above:Performed By: #### NONA RODRÍGUEZR ####[facility] Uittktfzey5084 [place], [place]Dr. Gypsyjuan AlonWBC (U) [#/Vol]/uLAbnormalNONE SEEN The [facility] HospitalComtrinity health [facility] hospital on above:Performed By: #### NONA RODRÍGUEZR ####[facility] Hbrnvyecar8908 [place], [place]Dr. Soniya ChiCovid-19 PCR (CVDTBH)on 40-40-4167HPKY-CoV-2 (COVID-19) RNA DORIAN+probe Ql (Unsp spec)Not detectedNormalNOT DETECTEDThe [facility] on above:Result Comment: This test is not yet approved or cleared by the [place] FDA. When there are no FDA-approved or cleared tests available, and other criteria are met, FDA can make tests available under an emergency access mechanism called an Emergency Use Authorization (EUA). The EUA for this test is supported by the Welcome Hostess of Health and Human Service's (HHS's) declaration [...] presence of clinical signs and symptomsconsistent with SARS-CoV-2.Performed By: #### CVDTBH ####[facility] Oipnrojnvn6566 [place], [place] [address]Ud. Soniya Chi Covid-19 PCR (CVDTBH)on 05-58-3499ZBHS-CoV-2 (COVID-19) RNA DORIAN+probe Ql (Unsp spec)DetectedCritically abnormalNOT DETECTEDThe [facility] HospitalComment on above:Result Comment: This test is not yet approved or cleared by the [place] FDA. When there are no FDA-approved or cleared tests available, and other criteria are met, FDA can make tests available under an emergency access mechanism called an Emergency Use Authorization (EUA). The EUA for this test is supported by the Welcome Hostess of Health and Human Service's declaration that circumstances exist to justify the emergency use of in vitro diagnostics for the detection and/or diagnosis of the virusthat causes COVID-19. This EUA will remain in effect for the duration of the COVID-19 declaration justifying emergency of IVDs, unless it is terminated or revoked by the FDA (after which the test mayno longer be used).Performed By: #### CVDTBH ####[facility] Cerngnjmer[address] [place], [place] [address]Dr. Soniya ChangCT HEAD WO CON on 58-48-7144VX HEAD WO CONNormalGrand Lake Joint Township District Memorial HospitalCBC AUTO DIFFon 12-12-2021 BASO #0.0 103/ulNormal0.0-0.1[facility] HospitalComment on above:Performed By: #### CBC ####[facility] Zqezegbscg1965[address] [place], [place] [address]Dr.Soniya ChangBasophils/100 WBC (Bld)0.5 %Normal0.2-2.0The [facility] HospitalComment on above:Performed By: #### CBC ####[facility] Wgwcxompfv[address] [place], [place] [address]Dr.Soniya ChangEO #0.1 103/ul Normal0.0-0.7The [facility] HospitalComment on above:Performed By: #### CBC ####[facility] Sddwtyezkr5564[address] [place], [place] [address]Dr. Soniya ChangEosinophils/100 WBC (Bld)1.6 %Normal0.9-7.0The [facility] Comment on above:Performed By: #### CBC ####[facility] Pqchpwjmhd65[address] [place], [place] [address]Dr.Soniya ChangErythrocyte distribution width (RBC) [Ratio]12.2 %Iesyvx95.0-15.0The [facility] HospitalComment on above: Performed By: #### CBC ####[facility] Uayefihyds33[address] [place], [place] [address]Dr.Soniya ChiHematocrit (Bld) [Volume fraction]38.7 % Cymcse61.0-48.0The [facility] HospitalComment on above:Performed By: #### CBC ####[facility] Srtgpmuqgj29[address] [place], [place] [address]Dr. Soniya ChiHemoglobin (Bld) [Mass/Vol]12.4 g/cWDpxsik92.0-16.0The [facility] HospitalComment on above:Performed By: #### CBC ####[facility] Ltjjfyrnmj613[address] [place], [place] [address]Dr.Soniya ChangIG #0.02 10e3/ulNormal0.00-0.03The [facility] HospitalComment on above:Performed By: #### CBC ####[facility] Wkxdjvrzzt[address] [place], [place] [address]Dr. Soniya ChangIG %0.3 %Normal0.0-0.5The [facility] HospitalComment on above:Performed By: #### CBC ####[facility] Lgzfemsaxn[address] [place], [place] [address]Dr.Soniya ChiLYMPH #1.5 103/ulNormal1.2-3.8The [facility] Comment on above:Performed By: #### CBC ####[facility] Rxbhiqvenl55[address] [place], [place] [address]Dr.Soniya ChiLymphocytes/100 WBC (Bld)20.6 %Tmpylf35.5-60.0The [facility] HospitalComment on above:Performed By: #### CBC ####[facility] Cekvyqvjge23[address] [place], [place] [address]Dr. Soniya ChiMANUAL DIFF REQNONormalThe [facility] HospitalComment on above: Performed By: #### CBC ####[facility] Mvdkimhqtd[address] [place], [place] [address]Dr.Soniya ChiMCH (RBC) [Entitic mass]29.5 pgNormal 26.7-34.0The [facility] HospitalComment on above:Performed By: #### CBC ####[facility] Cyjthhsoge[address] [place], [place] [address]Dr. Soniya ChiHC (RBC) [Mass/Vol]32.0 g/vPUdvvyp88.9-35.2The [facility] Comment on above:Performed By: #### CBC ####[facility] Qaifrfhpxe[address] [place], [place] [address]Dr.Soniya ChiV (RBC) [Entitic vol]91.9 fL Ubhcua28.0-99.0The [facility] HospitalComment on above:Performed By: #### CBC ####[facility] Xgogwyvusa[address] [place], [place] [address]Dr. Soniya ChiMONO #0.5 103/ulNormal0.3-0.8The [facility] HospitalComment on above: Performed By: #### CBC ####[facility] Ogvvkhiyec360[address] [place], [place] [address]Dr.Soniya ChiMonocytes/100 WBC (Bld)7.4 %Normal 1.7-12.0The [facility] HospitalComment on above:Performed By: #### CBC ####[facility] Gbkpttztil325[address] [place], [place] [address]Dr. Soniya ChiNEUT #5.1 103/ulNormal1.4-6.5The [facility] HospitalComment on above: Performed By: #### CBC ####[facility] Ogvgkfsnte[address] [place], [place] [address]Dr.Soniya ChiNeutrophils/100 WBC (Bld)69.6 %Normal 43.0-75.0The [facility] HospitalComment on above:Performed By: #### CBC ####[facility] Euahlqzjpc[address] [place], [place] [address]Dr. Soniya ChiPlatelet mean volume (Bld) [Entitic vol]9.7 fLNormal9.5-13.5The [facility] HospitalComment on above:Performed By: #### CBC ####[facility] Fqmtyjyifj66[address] [place] [address]Dr.Soniya NdetyZUA661 103/ul Zmbwgo440-324Jeh [facility] HospitalComment on above:Performed By: #### CBC ####[facility] Xkssvqoiqu40[address] [place] [address]Dr. Soniya ChangRBC4.21 106/ulNormal4.20-5.40The [facility] HospitalComment on above: Performed By: #### CBC ####[facility] Sdtongzxjk[address] [place] [address]Dr.Yilan ChangWBC7.3 103/ulNormal4.0-11.0The [facility] HospitalComment on above:Performed By: #### CBC ####[facility] Lmkyuacpvv40[address] [place] [address]Dr.Gypsylan ChangPROF 14(COMP METB)on 43-04-7971Vvghmjz [Mass/Vol]3.8 g/dLNormal3.4-5.0The [facility] Comment on above:Performed By: #### CMP ####[facility] Otgrhqccda[address] [place] [address]Dr.Gypsylan ChangAlbumin/Globulin [Mass ratio] 1.0 {ratio}NormalThe [facility] HospitalComment on above:Performed By: #### CMP ####[facility] Fcobcauksh79[address] [place] [address]Dr. Yilan ChangALP [Catalytic activity/Vol]71 U/VAdgbxt25-280Uhq [facility] Comment on above:Performed By: #### CMP ####[facility] Jxvggbglcj90[address] [place] [address]Dr.Yilan ChangALT [Catalytic activity/Vol]21 U/EKfviru80-03Nap [facility] HospitalComment on above:Performed By: #### CMP ####[facility] Imtrxqdvke9[address] [place] [address]Dr. Yilan ChangAnion gap [Moles/Vol]12.4 mmol/LNormalThe [facility] HospitalComment on above:Performed By: #### CMP ####[facility] Devbykaynx6285 [place], [place] [address]Ry.Yilan ChangAST [Catalytic activity/Vol]12 U/L Critically xfa22-17Jiq [facility] HospitalComment on above:Performed By: #### CMP ####[facility] Iufglwjwfv9610 [place] [address]Dr. Yilan ChangBilirubin [Mass/Vol]0.9 mg/dLNormal0.2-1.0The [facility] Comment on above:Performed By: #### CMP ####[facility] Lyjmxpjcja4345 [place] [address]Dr.Yilan ChangCalcium [Mass/Vol]9.6 mg/dL Normal8.5-10.1The [facility] HospitalComment on above:Performed By: #### CMP ####[facility] Hqmgzdrrwt[address] [place], [place] [address]Dr. Yilan ChangChloride [Moles/Vol]103 mmol/YLuvdra86-825Nmu [facility] Comment on above:Performed By: #### CMP ####[facility] Jlyxvlfafa[address] [place], [place] [address]Dr.Yilan ChangCO2 [Moles/Vol]26.7 mmol/L Lugbvl97.0-32.0The [facility] HospitalComment on above:Performed By: #### CMP ####[facility] Yljwuexsex6739 [place] [address]Dr. Yilan ChangCreatinine [Mass/Vol]1.30 mg/dLCritically high0.55-1.02The [facility] HospitalComment on above:Performed By: #### CMP ####[facility] Ohvnazaspo57[address] [place] [address]Dr.Yilan ChangEGFR-AF JPRJUEQK17 mL/min/1.97g3Ezponxyaag low>=60The [facility] HospitalComment on above: Performed By: #### CMP ####[facility] Fupvrrsbro8[address] [place], [place] [address]Dr.Yilan ChangEGFR-NON AF LQHHTFIZ30 mL/min/1.73m2 Critically low>=60The [facility] HospitalComment on above:Performed By: #### CMP ####[facility] Vjqmrdirpn[address] [place], [place] [address]Dr. Yilan ChangGlobulin (S) [Mass/Vol]3.7 g/dLNormUniversity Hospitals Beachwood Medical CenterComtrinity health [facility] hospital on above:Performed By: #### CMP ####[facility] Qkeqnyadpr[address] [place], [place] [address]Dr.Yilan ChangGlucose [Mass/Vol]104 mg/cAXorbop56-146 [facility] on above:Performed By: #### CMP ####[facility] Vhisfizb[address] [place], [place] [address]Dr.Yilan Chi Potassium [Moles/Vol]4.1 mmol/LNormal3.5-5.1[facility] on above:Performed By: #### CMP ####[facility] Jyidrlxgkl[address] [place], [place] [address]Dr.Yilan ChangProtein [Mass/Vol]7.5 g/dLNormal6.4-8.2 [facility] HospitalCom[facility] on above:Performed By: #### CMP ####[facility] Nrhmoitztk[address] [place], [place] [address]Dr.Yilan ChangSodium [Moles/Vol]138 mmol/QScyevb367-661Sxs [facility] on above: Performed By: #### CMP ####[facility] Rbddetjxmj[address] [place], [place] [address]Dr.Yilan ChangUrea nitrogen [Mass/Vol]19.0 mg/dL Critically high7.0-18.0[facility] on above:Performed By: #### CMP ####[facility] Qyzzqeovap[address] [place], [place] [address]Dr. Yilan ChangUrea nitrogen/Creatinine [Mass ratio]14.6 mg/mgNoRegency Hospital Company on above:Performed By: #### CMP ####[facility] Lcrtbhedev[address] [place], [place] [address]Dr.Yilan ChangGLUCOSE BLOODon 86-33-0595Tldfdnl [Mass/Vol]106 mg/qKXvsics32-463[facility] on above:Performed By: #### GLUC, LIPID ####[facility] [address] [address]Dr. Soniya ChiLIPID PROFILEon 67-96-5924VMSM-HDL RATIO NORMSEE [facility] CenterCom[facility] on above:Result Comment: 3.3 - 4.4 LOW RISK 4.4 - 7.1 AVERAGE RISK 7.1 - 11.0 MODERATE RISK >11.0 HIGH RISKPerformed By: #### GLUC, LIPID ####[facility] Cfosuzcrub[address] [place], [place] [address]Dr. Yilan ChangCholesterol [Mass/Vol]230 mg/dL Critically high<=200[facility] on above:Performed By: #### GLUC, LIPID ####[facility] Byxjtannjo[address] [place], [place] [address]Dr. Yilan ChangCholesterol in HDL [Mass/Vol]66 mg/dLCritically jcfe33-45Ynd [facility] on above:Performed By: #### GLUC, LIPID ####[facility] Xtfemkcvsq[address] [place], [place] [address]Dr. Soniya Chi Cholesterol in LDL [Mass/Vol]113.2 mg/dL[facility] on above:Performed By: #### GLUC, LIPID ####[facility] Seykhoyshi[address] [place], [place] [address]Dr. Yilan ChangCholesterol.total/Cholesterol in HDL [Mass ratio]3.5 {ratio}NormalF[facility] on above:Performed By: #### GLUC, LIPID ####[facility] Ntdcgrxxjq[address] [place], [place] [address]Dr. Yilan ChangHDL NORMAL> or = 60 mg/dl - LOW CARDIOVASCULAR RISK <40 mg/dl - HIGH CARDIOVASCULAR RISKMain Campus Medical Center on above:Performed By: #### GLUC, LIPID ####[facility] Znileomtui[address] [place], [place] [address]Dr. Yilan ChangLDL CALC NORMALSEE [facility] CenterCom[facility] on above:Result Comment: <100 mg/dl OPTIMAL 100 - 129 mg/dl NEAR OR ABOVE OPTIMAL 130 - 159 mg/dl BORDERLINE HIGH 160 - 189 mg/dl HIGH >190 mg/dl VERY HIGHPerformed By: #### GLUC, LIPID ####[facility] [address] [address]Dr. Soniya ChiTriglyceride [Mass/Vol]254 mg/dLCritically high<=150[facility] HospitalComment on above:Performed By: #### GLUC, LIPID ####[facility] C[address]fnpu[address] [address]Dr. Soniya ChiVLDL CALC50.8 mg/dLNoGeorgetown Behavioral HospitalComment on above:Performed By: #### GLUC, LIPID ####[facility] [address] [address]Dr. Soniya Chi Vital Signs Date TimeVital SignValuePerforming DjyiksrqhWuhvbpkm20-98-9500 11:05-0500 Diastolic blood dxayqosr48 mm[Hg][facility] [address] [place], [place] 7066001-13-2025 11:05-0500Heart rate61 /minMhd [facility] [address] [place], [place] 7066001-13-2025 11:05-0500Mean blood iuuzubdu79 mm[Hg]d Dc-Marrawi [address] [place], [place] 7066001-13-2025 11:05-0500 Respiratory rate16 /minMhd [facility] Hospital[facility] [address] [place], [place] 70[address]001-13-2025 11:05-6771MmJ6% (BldA) [Mass fraction]100 %Mhd [facility] Hospital[facility]i [address]01-13-2025 11:05-0500 Systolic blood acfhkwcm038 mm[Hg]d [facility] [address]10-14-2024 11:11-0400Body tsmnsqzsdde14.7 [degF]Mhd Dc-Marrawi [address] [place], [place] 4807910-14-2024 11:11-0400 Diastolic blood jznzofkz77 mm[Hg]Mhd Al-Marrawi [address] [place], [place] 4807910-14-2024 11:11-0400Heart rate70 /minMhd Dc-Marrawi [address] [place], [place] 4807910-14-2024 11:11-0400Mean blood huquwqem02 mm[Hg]Mhd Dc-Marrawi [address] [place], [place] 4807910-14-2024 11:11-0400 Respiratory rate16 /minMhd Dc-Marrawi [address] [place], [place] 4807910-14-2024 11:11-2536XjA3% (BldA) [Mass fraction]100 %Mhd Dc-Marrawi [address] [place], [place] 4807910-14-2024 11:11-0400 Systolic blood dmvvxetj461 mm[Hg]Mhd Dc-Marrawi [address] [place], [place] 4807909-04-2024 09:22-0400Body iybvct329.4 cmAngradha Jimenez DRONE SOFTWARE DEVELOPMENT ENGINEER Work Phone: NOFreeman Health SystemIjgqadhqtc34-47-5675 09:22-0400Body mass index (BMI) [Ratio]32.81 kg/u9MqcxxiZee Jimenez DRONE SOFTWARE DEVELOPMENT ENGINEER Work Phone: [facility] HospitalFrvmpmretj69-85-0161 09:22-0400Body xnaawr34.2 kg Zee Jimenez DRONE SOFTWARE DEVELOPMENT ENGINEER Work Phone: NOFreeman Health [phone] 09:22-0400Diastolic blood ztloebxd26 mm[Hg]Zee Jimenez DRONE SOFTWARE DEVELOPMENT ENGINEER Work Phone: [facility] HospitalCgfycjlrny00-35-0128 09:22-0400Heart rate73 /min Zee Jimenez DRONE SOFTWARE DEVELOPMENT ENGINEER Work Phone: NOFreeman Health SystemVcisncvupe15-93-9063 09:22-3768BaV9% (BldA) [Mass fraction]98 %Zee Jimenez DRONE SOFTWARE DEVELOPMENT ENGINEER Work Phone: NOFreeman Health SystemTuzvfyrzrw51-52-3463 09:22-0400Systolic blood mm[Hg]Zee Jimenez DRONE SOFTWARE DEVELOPMENT ENGINEER Work Phone: NOFreeman Health SystemWoetpamwcb39-57-4983 10:53-0400Body temperature 97.52 [degF]Mhd Al-Marrawi [address] [place], [place] 4807908-05-2024 10:53-0400 Diastolic blood mm[Hg]Mhd Al-Marrawi [address] [place], [place] 4807908-05-2024 10:53-0400Heart rate68 /minMhd Al-Marrawi [address] [place], [place] 4807908-05-2024 10:53-0400Mean blood jnnogbgg23 mm[Hg]Mhd Al-Marrawi [address] [place], [place] 4807908-05-2024 10:53-0400 Respiratory rate16 /minMhd Al-Marrawi [address] [place], [place] 4807908-05-2024 10:53-9672PpO0% (BldA) [Mass fraction]98 %Mhd Al-Marrawi [address] [place], [place] 4807908-05-2024 10:53-0400 Systolic blood puuzwike112 mm[Hg]Mhd Al-Marrawi [address] [place], [place] 4807907-10-2024 15:25-0400Blood Pressure LocationMichael NILL [phone]-IbickRegency Hospital [facility]07-10-2024 15:25-0400Diastolic blood poxglayt30 mm[Hg]Milo NILL [phone]-HrzutRegency Hospital [facility]07-10-2024 15:25-0400Heart rate70 /minMichael NILL [phone]-NhppzRegency Hospital [facility]07-10-2024 15:25-0400Respiratory rate16 /minMichael NILL [phone]-YkzrhRegency Hospital [facility]07-10-2024 15:25-0400Systolic blood eimwzkjj273 mm[Hg]Milo NILL [phone]-WyeywRegency Hospital [facility]05-06-2024 14:27-0400Body poluzwwxldg14.06 [degF]Mhd Dc-Marrawi [facility]05-06-2024 14:27-0400 Diastolic blood jenxurjs51 mm[Hg]Mhd Al-Marrawi [address] [place], [place] 4807905-06-2024 14:27-0400Heart rate64 /minMhd Dc-Marrawi [address] [place], [place] 4807905-06-2024 14:27-0400Mean blood ggiqpuwy889 mm[Hg]Mhd Dc-Marrawi [address] [place], [place] 4807905-06-2024 14:27-0400 Respiratory rate16 /minMhd Al-Marrawi [address] [place], [place] 4807905-06-2024 14:27-1510NxU7% (BldA) [Mass fraction]97 %Mhd Dc-Marrawi [address] [place], [place] 4807905-06-2024 14:27-0400 Systolic blood mm[Hg]Mhd Dc-Marrawi [address] [place], [place] 4807904-03-2024 14:12-0400Blood Pressure LocationMichael NILL [facility]04-03-2024 14:12-0400Diastolic blood cgtwcuth23 mm[Hg]Milo NILL [facility]04-03-2024 14:12-0400Heart rate 72 /minMichael NILL [facility] Swkmavsn38-91-5615 14:12-0400 Respiratory rate16 /minMichael NILL [facility] Fpcavjlc07-80-9276 14:12-0400Systolic blood mjfakaoe042 mm[Hg]Milo NILL [facility] Surgery Glkururo71-36-1760 09:51-0400Diastolic blood lseovchw59 mm[Hg]Mhd Al-Marrawi [address]04-01-2024 09:51-0400Heart rate61 /minMhd Al-Marrawi [address]04-01-2024 09:51-0400Mean blood emikfejc61 mm[Hg]Mhd Al-Marrawi [address] [place], [place] 7066004-01-2024 09:51-0400 Respiratory rate16 /minMhd Al-Marrawi [address]04-01-2024 09:51-1136XfO4% (BldA) [Mass fraction]97 %Mhd Al-Marrawi [address]04-01-2024 09:51-0400 Systolic blood kayxfyuz170 mm[Hg]Mhd Al-Marrawi [address]05-10-2023 07:06-0400 Diastolic blood jgdrzebd24 mm[Hg]Zaira Saravia DO Work Phone: bon [facility]05-10-2023 07:06-0400Heart rate46 /minZaira Saravia DO Work Phone: bon [facility]05-10-2023 07:06-0400 Respiratory rate29 /minCherick Saravia DO Work Phone: bCHIOMA [facility]05-10-2023 07:06-0864ShX0% (BldA) [Mass fraction]99 %Zaira Saravia DO Work Phone: NCHIOMA [facility]05-10-2023 07:06-0400Systolic blood ctihpegn115 mm[Hg]Zaira Saravia DO Work Phone: BCHIOMA [facility]05-09-2023 13:25-0400Body zgxkhidcmht27.11 [degF]Zaira Saravia DO Work Phone: [facility]-09-2023 13:21-0400Body kuhyba076.1 cmClauren Saravia DO Work Phone: [facility]05-09-2023 13:21-0400Body mass index (BMI) [Ratio]29.95 kg/s7Kyuovbfwterick Saravia DO Work Phone: [facility]05-09-2023 13:21-0400Body hoevqc40.65 kgCherick Saravia DO Work Phone: [facility]01-17-2023 14:39-0500Body falvdrotzni20.3 [degF]MD Melva Escobedo Work Phone: [phone]01-17-2023 14:39-0500 Diastolic blood bffeaqis65 mm[Hg]MD Melva Escobedo Work Phone: [phone] [place], [place] [address]2601-17-2023 14:39-0500 Heart rate63 /minMD Melva Escobedo Work Phone: [facility]01-17-2023 14:39-0500 Respiratory rate16 /minMD Melva Escobedo Work Phone: [phone]01-17-2023 14:39-0500 SaO2% (BldA) [Mass fraction]95 %MD Melva Escobedo Work Phone: [facility]01-17-2023 14:39-0500 Systolic blood hyqzmbnk239 mm[Hg]MD Melva Escobedo Work Phone: [facility]01-16-2023 09:00-0500 Body lnbvym93.76 kgMD Melva Escobedo Work Phone: [facility]01-11-2023 10:32-0500 Body bdwiio832.94 cmMD Melva Escobedo Work Phone: [facility] Encounters Encounter DateEncounter TypeCare ProviderFacilityStart: 70-69-6189iqidxlyevl Marty McleanFacility:[facility]tart: 02-24-2025 End: 28-59-4218wpzljlkywoGngc L SchwabFacility:FT BellevueStart: 02-23-2025 End: 01-24-2794iscyzlwymsElfh L SchwabFacility:FTMCStart: 12-28-2024 End: 60-16-3504cgfgbgpjstMXPYPremier Health Atrium Medical Centertart: 12-09-2024 End: 75-77-3323hklzqnaedaFUT Jodi L SchwabFacility:FT BellevueStart: 11-29-2024 End: 92-07-6885rssbxbtbbsQhp Yaser Al-MarrawiFacility:FTMCStart: 11-29-2024 End: 80-95-4545Yzolwwd encounter procedureMhd Yaser Al-Marrawi [facility] Start: 11-02-2024 End: 44-69-1137sbvsluhhthYxu Yaser Al-MarrawiFacility:FTMCStart: 11-02-2024 End: 99-54-9054Qdtcmtw encounter procedureMhd Yaser Al-Marrawi [facility] Start: 10-28-2024 End: 09-00-1480dlpvxcbizgBky Yaser Al-MarrawiFacility:FTMCStart: 10-28-2024 End: 21-30-3131Tymfijo encounter procedurekari Neumann [facility] Start: 10-04-2024 End: 47-47-4999Pvh-admission assessmentMhkari Jessica Neumann [facility] Start: 09-15-2024 End: 68-58-7992Lzh Drop offJodi L Ezequiel [facility] Start: 09-15-2024 End: 99-25-5372bjccqcpqctGexx L SchwabFacility:FTMCStart: 08-30-2024 End: 49-76-8048Lmwhdj Cresencio Dominguez MD Work Phone: noms NB OPHTStart: 08-30-2024 End: 81-59-4863Xhynopdominga Dominguez MD Work Phone: noms NB OPHTStart: 08-30-2024 End: 00-71-0800qagfuvnlumVKEVW M ALLENNot AvailableStart: 06-16-2024 End: 32-34-6061ojqfnpmgccNHZ Keya L SchwabFacility:FT FM BellevueStart: 06-15-2024 End: 36-88-0595Qpl Drop offJodi L Ezequiel [facility] Start: 06-15-2024 End: 60-19-3843cxnxjwvmxlLGW Keya L SchwabFacility:FTMCStart: 06-14-2024 End: 57-68-8770boqjhjxiwuHbt Emeralddaja Moi-MarrawiFacility:FTMCStart: 06-14-2024 End: 81-98-0868Xzkcvqr encounter procedurekari Jessica Neumann [facility] Start: 04-28-2024 End: 87-04-8335kdjoavpbqhJFRYXWK [facility] Hospitaltart: 03-15-2024 End: 78-49-3719siutggjzoaPbr Yaser Al-MarrawiFacility:FTMCStart: 03-15-2024 End: 01-22-1918Fpaymfx encounter procedureMhd Yaser Al-Marrawi [facility] Start: 03-15-2024 End: 81-89-4541srlvvmbgopPwq Yaser Al-MarrawiFacility:FTMCStart: 03-15-2024 End: 57-17-9210Ldyzvrq encounter procedureMhd Yaser Al-Marrawi [facility] Start: 02-04-2024 End: 44-49-9960Wwyqwj flowsheetAngela Gillmor DRONE SOFTWARE DEVELOPMENT ENGINEER Work Phone: noMS [facility] STATE ROUTEStart: 02-04-2024 End: 50-34-1219Bkjypw flowsheetAngela Gillmor DRONE SOFTWARE DEVELOPMENT ENGINEER Work Phone: NOMS [facility] STATE ROUTEStart: 02-04-2024 End: 15-70-3207Bktjnc outpatient visit 25 minutesAngela Lesamor DRONE SOFTWARE DEVELOPMENT ENGINEER Work Phone: noms JUTSICE STATE ROUTEComment on above:LISA (obstructive sleep apnea) (Primary Dx); Hypersomnia; Hypoxia; SnoringStart: 02-04-2024 End: 88-71-4469mtcazfmntxQHHSNR GILLMORNot AvailableStart: 01-06-2024 End: 13-52-6122Ogfhxim encounter procedureMichael R NILL [phone]-Odskd [facility] [place] Start: 01-05-2024 End: 93-50-3309Iqopfpw encounter procedureMhd Yaser Al-Marrawi [facility] Start: 12-22-2023 End: 00-86-3278Rltbiws encounter procedureMichael R NILL [phone]-EsogrOhio [facility] [place] Start: 12-17-2023 End: 97-30-4825vqlesysfymJJ Melva Escobedo Work Phone: [facility] Work Phone: Start: 12-17-2023 End: 35-67-7839Ncwiydug ReferredMD Melva Escobedo Work Phone: [facility]-LAB Path Spec [place] HospStart: 12-10-2023 End: 34-92-5344Twyvkbh encounter procedureMichael R NILL [phone]-Fglsc General Surgery [place] Start: 50-51-7555Lzvomdvliy RecurringMD Melva Escobedo Work Phone: [facility]-BH CredibleStart: 11-12-2023 End: 01-31-3833kjxptcgzomXIZETL DANMELVINot AvailableStart: 10-06-2023 End: 23-58-8557Crwinhl encounter procedureMhd Emeraldser Al-Marrawi [facility] Start: 09-03-2023 End: 54-92-5655Kuhfgqx encounter procedureMichael R NILL General Surgery Nill/S[facility] Start: 09-01-2023 End: 07-48-4536Fkmjuea encounter procedureMhd Yaser Al-Marrawi [facility] Start: 06-11-2023 End: 87-47-8079Fpg Drop Elma Nieves [facility] Start: 10-09-2022 End: 76-82-4431Mrddufjqyq and management of jeronimoJosefinaroslyn Tamika Facility:[facility] HospitalStart: 10-08-2022 End: 90-59-1440Ulilygbpu department patient visitJAMIL [facility] HospitalStart: 10-08-2022 End: 18-59-7446Plepevgxd department patient visitZaira Saravia DO Work Phone: [facility] EDComment on above:Altered mental status, unspecified altered mental status type (Primary Dx); Hypernatremia; Urinary tract infection without hematuria, site unspecifiedStart: 10-08-2022 End: 02-41-3501bxqlfujzekQPLCSNorth [facility] Specialty Hospital HospitalStart: 10-08-2022 End: 30-53-5912Nkexqsvtwd hospital visit by Mary Lundberg MD Work Phone: mthz LaboratoryStart: 10-05-2022 End: 78-63-9756ynvinoblnkVLM Osman [facility] HospitalStart: 10-04-2022 End: 96-21-2991vggicpveytHHZMMNorth Carolina Specialty Hospital HospitalStart: 10-04-2022 End: 61-00-9895Yudixazzbi hospital visit by Mary Lundberg MD Work Phone: mthz LaboratoryStart: 10-03-2022 End: 00-92-9196wxogrwlchiJVCMANorth Carolina Specialty Hospital HospitalStart: 10-02-2022 End: 89-08-6531Gqvsulsamb hospital visit by Mary Lundberg MD Work Phone: mthz LaboratoryStart: 09-28-2022 End: 01-04-0315ndzewjzxpuYG KIM E KNIGHT .Facility:V4Tdkaq: 09-16-2022 End: 27-78-5806hwrozykvybMT KIM E KNIGHT .Facility:O2Lrtnd: 08-27-2022 End: 72-75-4814qytecedxaaTXBMQ AHMEDMercy Spangle HospitalStart: 08-27-2022 End: 87-18-7991Tpeyxyqxqp hospital visit by Mary Lundberg MD Work Phone: mthz LaboratoryStart: 08-25-2022 End: 38-13-5498cpfxuwccnwCMYHS AHMEDProvidence Hospitalmartinez Wright HospitalStart: 08-25-2022 End: 25-55-9243Tufxcqcllh hospital visit by Mary Lundberg MD Work Phone: mthz LaboratoryStart: 08-16-2022 End: 81-73-9329Txzdbyjmaw and management of inpatientDR MELAV Benoit ESCOBEDO . Facility:E9Lcptc: 08-15-2022 End: 48-05-3916ngerpkblrrSL MELVA Benoit ESCOBEDO .Facility:X0Pedpq: 08-13-2022 End: 26-75-2140wuwytjtpkmRY MELVA Benoit ESCOBEDO .Facility:O2Vpcuh: 05-30-2022 End: 86-27-2414Coshrwhypf and management of inpatientMD Melva Escobedo Work Phone: [facility] Work Phone: Start: 05-28-2022 End: 15-80-4426Jiwatltisu and management of inpatientDR MELVA ESCOBEDO . Facility:B8Ivajp: 05-06-2022 End: 39-17-6915mfcpzmrykyIJ MELVA Benoit ESCOBEDO .Facility:Z0Bteqa: 04-23-2022 End: 81-01-8386gmzepwdtzkRN MELVA Benoit ESCOBEDO .Facility:T7Qnetl: 04-17-2022 End: 66-99-8445uvnktyuaxlMA MELVA Benoit ESCOBEDO .Facility:A5Lblkh: 04-03-2022 End: 13-87-7998txqzifnqkuJX COBY BUCK .Facility:R3Opvhh: 12-31-2021 End: 63-90-6306jngrrfiksnZX MELVA Benoit ESCOBEDO .Facility:V8Arvlp: 12-18-2021 End: 03-62-0188xstmnpfmmwXJ MELVA Benoit ESCOBEDO .Facility:Q9Canfl: 12-15-2021 End: 66-26-7564gmxteiuokpZRPHWWV D KATKOFacility:H9Hzuok: 12-12-2021 End: 48-34-0938waogncjpeyVP KIM E KNIGHT .Facility:O5Bjxta: 11-29-2021 End: 00-07-3222wmlgffmimvSRLVU SPROUTFacility:H1 Procedures DateProcedureProcedure DetailPerforming ClinicianStart: 08-30-2024 End: 38-29-8797Zrfvh medical xm&eval comprhnsv estab pt 1/>PCO (posterior capsular opacification), bilateralKerry Juan Dominguez MD Work Phone: comment on above:PCO (posterior capsular opacification), bilateral (Primary Dx); PseudophakiaStart: 70-27-1404Nvzilknafg of right breastMichael NILL Start: 70-66-8532Kevimg of breastMichael NILL Start: 03-03-4310Etbcmw of breastMichael NILL Start: 47-68-4882Dnwmj metabolic panel calcium total Zaira R Saravia DO Work Phone: Start: 85-01-5160Jegiu metabolic panel calcium total Zaira R Saravia DO Work Phone: Start: 32-31-7169Ngrrg metabolic panel calcium total Zaira R Saravia DO Work Phone: Start: 67-66-1732Lbstf metabolic panel calcium total Zaira R Saravia DO Work Phone: Start: 24-50-7066Qkjqs metabolic panel calcium total Zaira R Saravia DO Work Phone: Start: 21-34-4739Kkoxp metabolic panel calcium total Zaira R Saravia DO Work Phone: Start: 15-11-9826Qvrmndtaab microscopic onlyChristina R Saravia DO Work Phone: Start: 32-22-5886Vqhrj dip stick/tablet rgnt auto w/o microscopyChristina R Saravia DO Work Phone: Start: 02-72-2499Fp head/brain w/o contrast material Zaira R Saravia DO Work Phone: Start: 66-23-2262DXCEPLP, WHOLE BLOODCherick Soto Saravia DO Work Phone: Start: 08-90-6994Yjvkexocjnzra metabolic panel Zaira R Saravia DO Work Phone: Start: 94-09-5300Ezu routine ecg w/least 12 lds i&r onlyChristina R Saravia DO Work Phone: Start: 69-11-1223Fopng metabolic panel calcium total Melva Morales SURGICAL TECHNOLOGY INSTRUCTOR - BOTTLE AND GLASS INSPECTOR Work Phone: Start: 79-76-3707Udomuyxvtbzdl metabolic panelJamil Lundberg MD Work Phone: Start: 96-94-1968Crclg panelIrroslyn Lundberg MD Work Phone: Start: 23-07-9387Aomkg of thyroid stimulating hormone tshJamil Lundberg MD Work Phone: Start: 40-00-2002Wcown metabolic panel calcium total Mee Zenia SURGICAL TECHNOLOGY INSTRUCTOR - BOTTLE AND GLASS INSPECTOR Work Phone: Start: 97-83-9164Gwkfp dip stick/tablet rgnt auto w/o microscopyAzul Thompson MD Work Phone: Start: 23-15-8213Kkmziijnc A and B virus antigen assay MD Melva Escobedo Work Phone: Start: 38-15-6092Vhzoh cultureMD Melva Escobedo Work Phone: Start: 34-24-7136OM of head without contrastMD Melva Escobedo Work Phone: Start: 73-09-8122FI of head without contrastMD Melva Escobedo Work Phone: Start: 15-51-8407Vxredopf (disorder)Mhd Thien Start: 26-21-6821GgnuauxsmggBvjc Ezequiel Start: 54-39-6076Qckblbel extraction and insertion of intraocular lensJodi Ezequiel Comment on above:CATARACT EXTRACTION WITH INTRAOCULAR LENS IMPLANTATION RIGHT EYEBiopsy of breastMichael NILL Tonsillectomy and adenoidectomyJodi Ezequiel Plan of Treatment DateCare ActivityDetailAuthorStart: 30-15-0721PSpW/Tdap/Td vaccine (2 - Tdap) DTaP/Tdap/Td vaccine (2 - Tdap)[facility]Start: 34-64-7731Gsamm panelLipidsBON [facility]ITALStart: 08-30-2024 End: 02-90-3158Jkcfelw encounter procedureNOMS NB OPHTComment on above:Arrived Start: 02-04-2024 End: 97-79-4943Ifdwnhl encounter ppftolasw46/04/2024 9:30 AM EDT [facility] [address] [place] [address] Zee Jimenez, ARIC [address] [place], [place] ArrivedNOMS [facility] ROUTEComment on above: ArrivedStart: 78-02-0303Gywyrleyv vaccinationInfluenza Vaccine (#1)[facility] HealthcareStart: 33-15-3408Pfvqgsbwf vaccinationFlu vaccine (Season Ended)[facility]Start: 07-55-5978Imkxub Wellness Visit (AWV)Annual Wellness Visit (AWV)[facility]Start: 06-88-6299AwgeobibgParma Community General Hospitaltart: 37-04-9130PipackqonParma Community General Hospitaltart: 06-15-2022 Referral to gynecologistParma Community General Hospitaltart: 05-30-2022 Hospital admissionParma Community General Hospitaltart: [phone] vaccinationFlu vaccine (#1)[facility]: 54-04-9738Wluovovnmvby 65+ years Vaccine (2 - PPSV23 if available, else PCV20)Pneumococcal 65+ years Vaccine (2 - PPSV23 if available, else PCV20)[facility]: 93-20-7621Eboxoelgvhyu Vaccine: 65+ Years (2 of 2 - PPSV23 or PCV20)Pneumococcal Vaccine: 65+ Years (2 of 2 - PPSV23 or PCV20)[facility] HealthcareStart: 2009 Screening for osteoporosisDEXA (modify frequency per FRAX score)[facility]: 20-01-6080Abouirqjc for malignant neoplasm of breastBreast cancer screenSentara CarePlex Hospital: 25-06-1757Wtnzsrnl vaccine (1 of 2) Shingles vaccine (1 of 2)[facility]: 52-02-1971Jeblnvali for malignant neoplasm of colonSentara CarePlex Hospital: 73-08-6914Kmikagjnf for malignant neoplasm of breastMammogramNOMS HealthcareStart: 1989 Diabetes screenDiabetes [facility]: 1973 DTaP/Tdap/Td vaccine (1 - Tdap)DTaP/Tdap/Td vaccine (1 - Tdap)[facility]: 33-60-3527Cxiagpoth C screeningHepatitis C [facility]: 96-16-6275Pxobrtzqxz ScreenDepression [facility]: 78-80-6560CVPMT-19 Vaccine (#1)COVID-19 Vaccine (#1)[facility]: 70-38-0261Htithjamh for malignant neoplasm of colonNOMS Healthcare End: 41-68-1327Rthjz metabolic 2000 panel - Serum or PlasmaBasic Metabolic Panel Lab STAT Every 2 Hours (Lab) for 35 Occurrences starting 10/08/2022 until 09/30, 5 completedB[facility] Work Phone: comment on above:Every 2 Hours (Lab) for 35 Occurrences starting 10/08/2022 until 10/11/2022, 5 completed End: 40-36-4030Cvxidjd, UrineBON [facility]OURS [facility]ARY [facility]UL[facility] Work Phone: Comment on above:Once for 1 Occurrences starting 08/25/2022 until 08/25/2022 End: 18-72-5834Fnxagxr, UrineBON [facility]CTRIR[facility] Work Phone: comment on above:Once for 1 Occurrences starting 10/08/2022 until 10/08/2022atient EducationSchizophrenia (DC) [facility] InstructionsGu[facility] Work Phone: Patient referralGuernsey Memorial Hospital Ctr Work Phone: End: 59-00-5460T7DQI [employer] Work Phone: comment on above:Once for 1 Occurrences starting 10/02/2022 until 10/02/2022 End: 58-69-4345K8GPI [employer] Work Phone: comment on above:Once for 1 Occurrences starting 10/02/2022 until 10/02/2022 End: 82-90-9990Krnfopjbe (T4) free [Mass/volume] in Serum or PlasmaBON [facility] Work Phone: comnvjn on above:Once for 1 Occurrences starting 10/02/2022 until 10/02/2022 End: 64-89-3037Xmfkzpsuboahapmf (T3) Free [Mass/volume] in Serum or PlasmaBON [facility] Work Phone: Comment on above:Once for 1 Occurrences starting 10/02/2022 until 10/02/2022[facility] Immunizations Immunization DateImmunizationNotesCare WhgfjjxfNczrvbrp90-50-3910nzfkjngfg virus vaccine, unspecified formulationkari PraterBrinda [phone]-BingfOhio State University [facility] General Surgery [place] 17-30-2977zxiiesgkk, high dose seasonal, preservative-free; Translations: [Fluzone High Dose Vaccine]kari PraterBrinda [phone]-OzdocLourdes Specialty Hospital 21-34-9156gusckkysm virus vaccine, unspecified formulationMichael NILL [phone]-KoofzParkview Health [facility] 03-53-9550OLRW-CoV-2 (COVID-19) mRNAMUL.ORD![id number] Ezequiel [phone]-JmgerParkview Health Bryan Hospital Comment on above:Result Comment: 2022-08-09: LKU2585-78-4938pjodouhgx virus vaccine, unspecified formulationJodi Ezequiel [phone]-KherlParkview Health Bryan Hospital 74-50-9114QRPB-CoV-2 (COVID-19) mRNA-1273 vaccineJodi Ezequiel [phone]-TbqzzParkview Health [facility] Comment on above:Result Comment: 2022-08-09: TCV5001-03-4993ugqmwottq virus vaccine, unspecified formulationJodi Ezequiel [phone]-HudpkParkview Health Bryan Hospital 79-05-3917GOAW-CoV-2 (COVID-19) mRNA-1273 vaccineJodi Ezequiel [phone]-TjjalParkview Health [facility] Hospital 51-32-9420FMNU-CoV-2 (COVID-19) mRNA-1271 vaccineJodi Ezequiel [phone]-BybecParkview Health [facility] Hospital 30-08-7301cvsswlpxkqib conjugate vaccine, 13 valentJodi Ezequiel [phone]-PcphsParkview Health [facility] Hospital 36-85-5853pbkjhvkaz virus vaccine, unspecified formulationJodi Ezequiel [phone]-NdxfjParkview Health [facility] Hospital 47-39-8428uqjvnpbnj virus vaccine, unspecified formulationJodi Ezequiel [phone]-MjcucParkview Health [facility] Hospital Payers DatePayer CategoryPayerPolicy [id number] Health [id number] Medicare (Managed Care)[facility] Member Subscriber Plan / Payer (Effective 2017-Present) Name: Marley Osborn Relation to Subscriber: Self Name: Marley Osborn Martinez Payer ID: [id number] (IC) Type: Not on file Address: [address] [id number] 90-28-7447Qpkvilm Health [id number] [id number] 2.0.1.594398.3.57[id number] 2.840.1.611805.3.57[id number] 2.16840.1.738506.3.57[id number] 2.840.1.779961.3.57[id number] 2.16840.1.042095.3.579.[id number] 2.16840.1.760110.3.57[id number] 2.16840.1.003279.3.57[id number] 2.16840.1.996277.3.57[id number] 2.16.840.1.397817.3.579.[id number] 2.16.840.1.816015.3.57[id number] 2.16.840.1.248036.3.57[id number] 2.16.840.1.194760.3.579.2.36357-40-3982Dflpoiw1170816 2.16.840.1.749899.3.579.2.91679-49-7462Aegvybs4494035 2.16.840.1.163353.3.579.2.22111-61-7218Vafcwvj5151092 2.16840.1.285676.3.579.2.22320-42-6778Mebkiws12523931 2.16840.1.089313.3.579.[id number] 2.16840.1.425809.3.579.2.72558-58-9935Crjnyvs73045077 2.16840.1.268011.3.579.[id number] 2.16840.1.514426.3.579.[id number] 2.16840.1.213862.3.57[id number] 2.16.840.1.303929.3.579.2.28508-40-0513Kghhmjg8420559 2.16840.1.228342.3.579.2.224486-80-5729Pmpacsx7003434 2.16.840.1.172347.3.579.2.238570-69-7653Mefgcpk8161341 2.16840.1.427156.3.579.2.272838-79-4530Hnjlpdx89534038 2.16840.1.772702.3.579.2.17093-90-8343Tnvhwhx99723252 2.16840.1.041237.3.579.2.56821-50-6311Xdsykja08263259 2.840.1.453635.3.579.2.24596-76-9315Msqzfos67842585 2.840.1.052558.3.579.2.68530-26-3170Jbeylsy48741988 2.840.1.440109.3.579.2.[id number] 2.840.1.084603.3.579.2.53228-46-1336Pzykror19104230 2.840.1.535581.3.579.2.70612-14-4883Xdofwlf71966622 2.840.1.360393.3.57[id number] 2.840.1.753346.3.57[id number] 2.840.1.155848.3.579.[id number] 2.16840.1.935682.3.579.2.18946-94-8281Mmputsf84476687 2.840.1.226416.3.579.[id number] 2.840.1.269387.3.579.2.89193-75-4236Abthowi28553738 2..840.1.346251.3.579.2.[id number] 2.16.840.1.768012.3.5[id number] /[id number]-a45c-46a3-k010-02yx7u[id number] 08u26282-792a-8176-[id number] 2..840.1.300732.3.579.2.531 Social History DateTypeDetailFacilityStart: 06-15-2022 End: 46-31-5788Nxestep smoking status NHISNever smoked tobacco (finding) [facility] CenterComment on above:Never a smokerdenies useStart: 91-48-9502Ozx [facility]igned At [facility] status NHISTobacco smoking consumption [facility] Work Phone: start: 86-18-9209Mfd Assigned At BirthNot on [facility] Work Phone: Tobao smoking statusNeWilson Health Family Medicine BellevueComment on above:Never a smokerdenies useStart: 11-12-2023 End: 59-65-9061Sjo Assigned At [facility] Hospitaltart: 96-75-1085Cwgavww use and exposureSmokeless tobacco non-userNOMS Healthcare Start: 11-12-2023 End: 05-04-8613Emmdhfgcv beverage intakeLifetime non-drinker (finding)[facility] HealthcareStart: 11-12-2023 End: 68-53-2959Dwuusry of Social functionNOMS HealthcareSexual OrientationAvita Health System [facility] Start: 05-76-7797DqtPzeulf (finding)[facility] Goals DatePatient GoalDesired Activity/State Functional Status PcolMaulhujfkzDajlebMhijfsaq30-91-4849Balqgughgs StatusN/AFisherHonorhealth [facility] General Surgery Xtfmsmfw58-71-7474Hhbfqdhzsh StatusN/AGeneral Surgery Jnuwlxhf78-32-9287 Functional statusPatient is Progressing Toward BaselineMary Rutan Hospital Work Phone: [phone]cdtsqr statusDisability Status Patient at BaselineMary Rutan Hospital Work Phone: Mental Status LnemAptzlyxmqjDzeohhFulzpbwi68-56-1188Rbeilefde functionCognitive Status Patient is Progressing Toward BaselineMary Rutan Hospital Work Phone: Clinical Notes 05-31-2022 to 12-28-2024 Note Date & UqueRxysXqxnvhjw65-24-7026 NoteSUBJECTIVE Reason for Visit: Marley Osborn is a 69 y.o. year old female patient being seen for follow-up visit. HPI: Marley Osborn is a 69 y.o. year old female with significant medical history of hypertension, CKD 3, A-fib/flutter, breast cancer, schizophrenia, LISA on cpap, and hypothyroidism. 10/08/2024 ED visit: Marley Osborn a 68 y.o. female who is admitted to [facility] with altered mental status with mild lactic acidosis. Unclear etiology of the patients altered mental status but she has had presentations similar to this in the past in the setting of infections. The notes a degree of cognitive decline over the past year with a strong family history of dementia. Unclear what the etiology of her current presentation is, no obvious metabolic or infectious cause. She is forgetful about her home medication dosing, perhaps she took extra doses of her antipsychotics. Would continue supportive care and workup of infection per the medicine team. 12/28/2024 office visit: Patient seen evaluate in the office, accompanied by her . She reports that she has increase in sleepiness over the last few months. Of note she is on Haldol and Seroquel being managed per her psychiatrist for schizophrenia. She has had some recent adjustments to psych medications in the last few months. She is due to see her psychiatrist in 2 weeks. Otherwise, she denies chest pain, shortness of breath, palpitations. Endorses stable lower extremity edema. 04/28/2024 office visit (Michele De La Garzacker): Pt has been home for the past year or so. Pt has only had 1 fall since being home. She feels well. She states she ambulates without issues, confirms this. She does not ambulate with any assistive devices. Denies c/o CP, dyspnea, orthopnea, PND, LE edema, dizziness/LH, palpitations, syncope. Medical History[1] Surgical History[2] Problem List[3] family history includes Heart attack in her father. Social History[4] OBJECTIVE Visit Vitals Smoking Status Never Physical Exam Constitutional: General Appearance: well-developed, appears stated age. Level of Distress: no acute distress. Neck: Jugular Veins: normal jugular venous pressure. Lungs: Auscultation: no rales or rhonchi and normal breath sounds. Cardiovascular: Rate And Rhythm: regular Heart Sounds: normal S1 and s2; Systolic Murmur: not heard. Diastolic Murmur: not heard. Extremities: +1 LE edema. Peripheral Pulses: Pulses: full and equal in all extremities except if noted. Abdomen: Inspection and Palpation: non distended or tender and soft. Musculoskeletal: Inspection: no joint tenderness or swelling. Neurologic: Gait: normal gait. Psychiatric: Mental Status: alert and normal affect. Skin: Inspection and Palpation: warm and dry. Allergies: Allergies[5] Outpatient Medications: Current Outpatient Medications Medication Instructions alendronate (FOSAMAX) 70 mg, oral, Every 7 days apixaban (ELIQUIS) 5 mg, oral, 2 times daily calcium 500 mg calcium (1,250 mg) tablet 1 tablet, oral, 2 times daily with meals ergocalciferol (Vitamin D-2) 1.25 MG (10737 Units) capsule TAKE 1 CAPSULE BY MOUTH EVERY 7 DAYS haloperidol (HALDOL) 5 mg, oral, 2 times daily RT letrozole (FEMARA) 2.5 mg, oral, Daily, Take with or without food. levothyroxine (SYNTHROID, LEVOXYL) 50 mcg, oral, Daily QUEtiapine (SEROQUEL) 50 mg, oral, Daily Recent Labs: No visits with results within 6 Month(s) from this visit. Latest known visit with results is: No results found for any previous visit. 12/03/2023 Hgb 11.8, plt 242 Cr 1.21, BUN 15, K 4.4, eGFR 44 08/22/22 Hgb 8, plt 133 Cr 0.96, BUN 17, K 2.7, Na 141, eGFR 58, ALT 23, AST 20 TSH 2.840 08/16/22 Cr 1.27, BUN 24, K 4.3, Na 144, eGFR 42 TSH: 7.84 I have personally reviewed and anaylzed the following laboratory results above. These findings have been analyzed in the context of the patient's clinical presentation. Cardiovascular Diagnostic Studies: TTE 10/22/2023: Conclusion: 1. Global left ventricular systolic function is normal; visually estimated ejection fraction is 55 to 60% 2. Normal right ventricular size and systolic function. 3. Normal diastolic function. 4. Mild tricuspid regurgitation. 5. Mild mitral regurgitation TTE 08/19/2022:: Ventricular systolic function is normal, LVEF is 55-60%, diastolic function is indeterminate. Mild tricuspid and mitral regurg Mildly elevated right-sided pressures, RVSP 42. IVC is dilated. Trivial pericardial effusion Stress test 11/05/2023: Normal myocardial perfusion scan 12 Lead ECG: No results found for this or any previous visit (from the past 4464 hours). 10/08/2024 twelve-lead ECG: SR I have personally reviewed and analyzed all available cardiac diagnostic tests and imaging reports. Findings have been analyzed in the context of the patient's clinical status. Assessment and Plan #Paroxysmal A-fib [id number] = 3 (fe (more content not included)...[facility]07-29-2025 NotePatient is here today for a follow up appointment. Per patient is sleeping to much, patient is not using her cpap at night, is concerned she could have a blockage. Patient was inpatient at [facility] in September then went to the [place] for rehab. Patient states she has occasional palpitations leg swelling occasional dizziness and fatigue Patient denies chest pain.[facility]07-10-2025 NoteNurse Consultation Note Reason for Visit patient came IO for lab draw Assessment/Plan 1. Hyperlipidemia, unspecified (E78.5: Hyperlipidemia, unspecified) Medications acetaminophen, 500 mg, q6hr, PRN alendronate 70 mg Tab, See Instructions Eliquis 5 mg oral tablet, 5 mg= 1 tab(s), Oral, BID ergocalciferol 50,000 intl units Cap, See Instructions Femara 2.5 mg Tab, See Instructions, 11 refills haloperidol 5 mg Tab, 5 mg= 1 tab(s), Oral, BID, 1 refills Handicap Placard, See Instructions levothyroxine 50 mcg (0.05 mg) Tab, See Instructions Misc Medication quetiapine 25 mg Tab, See Instructions Allergies Keflex (rash) penicillins (rash) sulfamethoxazole (rash) Immunizations Vaccine Date Status Comments influenza virus vaccine, inactivated 03/20/2024 Recorded influenza virus vaccine, inactivated 02/24/2024 Given influenza virus vaccine, inactivated 03/05/2023 Recorded SARS-CoV-2 (COVID-19) mRNAMUL.ORD![id number] 03/09/2022 Recorded 2022-08-09: TPV65 influenza virus vaccine, inactivated 02/14/2022 Recorded SARS-CoV-2 (COVID-19) mRNA-1273 vaccine 03/29/2021 Recorded 2022-08-09: TPV65 influenza virus vaccine, inactivated 01/27/2021 Recorded SARS-CoV-2 (COVID-19) mRNA-1273 vaccine 08/23/2020 Recorded SARS-CoV-2 (COVID-19) mRNA-1273 vaccine 07/27/2020 Recorded pneumococcal 13-valent vaccine 02/17/2020 Recorded influenza virus vaccine, inactivated 02/20/2019 Recorded influenza virus vaccine, inactivated 03/31/2018 [facility] NoteOncology Progress Note Chief Complaint Follow up for breast cancer, Needs mamm ordered for [facility] not [facility]. Pt here with Freddy Osborn. Oncological History/ROS/PE/Assessment and Plan Diagnoses 1. Invasive ductal carcinoma of right breast (C50.311: Malignant neoplasm of lower-inner quadrant of right female breast) 2. Osteopenia (M85.80: Other specified disorders of bone density and structure, unspecified site) History of Present Illness 68 year old white female with history of schizophrenia, hypothyroidism, sleep apnea, osteoporosis, HTN and hyperlipidemia who has family history of mom with breast cancer, she was referred to our oncology clinic for that with new diagnosis of invasive ductal carcinoma with DCIS as well of the rightbreast at 4 o'clock position. Patient was found [...] grade 1 with DCIS and without LCIS. ER/MN were positive. 90-100% positive and MN is 80 to 90% positive with HER2 [...] 3.5 mm. Ductal carcinoma in situ: Present Jgc-tw-waqrvbv patterns: Solid Nuclear grade: Grade 1-2 intermediate Necrosis: Not identified Lobular carcinoma in situ: Not identified Lymphatic and or vascular invasion: Not identified. Microcalcification: Not identified. ER +91 to 100%. MN +81 to 90%. HER2 HERLINDA negative 1+ low Patient states that she did not feel any breast masses but she is concerned about the left breast as she has new nipple inversion for the last 2 weeks that she never had before. She denies any nipplebleeding or nipple discharge from any of the breast and denies any enlarged lymph nodes in the axillary regions bilaterally. All other systems were reviewed and are negative. 10/06/23: She was referred to Dr. Nill from general surgery and-and the plan is to do right breast lumpectomyon 10/22/2023. The left breast diagnostic Mammogram and ultrasound came back BI-RADS 2 benign findings with stable left breast size and overall fibroglandular configuration with nodular parenchymal pattern. Stable inversion of the nipple. Nofocal mass. Borderline dilatation of a single duct [...] risk of recurrence at 9 years would be40%. Patient was originally scheduled for surgery on 10/22/2023. Due to need for cardiac clearance for history of A fib, surgery was not done till 12/17/23. 01/05/24: She is here post right lumpectomy done on 12/17/23 and she wants to know the treatment plan. Surgical path revealed pT1b, pN0, right breast invasive ductal carcinoma 0.9 cm greatest dimension, grade 1well differentiated, all margins were negative, closest margin is 0.9 cm associated with DCIS, no evidence of LVI. all 4 sentinel lymph nodes were negative for malignancy. previously and by biopsy itwas ER+, MN+, HER2 1+. Her husbands stated she had DEXA scan in 2022 at [facility] when found to have osteopenia and was started on vitamin D 50K weekly and Fosamax 70 mg once a week. She is not on calcium. 03/15/24: She is here for 2 months follow up for her right breast cancer history. her stated she has been acting delusional or confused for few days now as they went to [employer] this morning and could not order the same food she always usually order and was confused when she tried to go to the bathroom there. She has LISA but not been wearing the CPAP macing as the mask has not been fitting well. They also sees psychiatrist as well as sleep MD and last seen was 1 monthago. She denied any fever or dysuria but has been urinating a lot lately (more content not included)...[facility] History of Present illness Narrative* Ameena Dominguez MD - 08/30/2024 9:30 AM EDT Assessment/Plan PCO OU: (Posterior Capsule Opacification) Can be observed without intervention if PCO is not visually significant. Nd:YAG laser capsulotomy may be considered if impairment of vision rises to a level that dose not meet the patient's functional needs or interferes with activities of daily living. Risks, benefits and alternatives to the procedure will be reviewed. If the patient has undergone Nd:YAG laser capsulotomy, they are to notify their clerk checker promptly if they have asignificant change in symptoms, such as flashes of light (photopsia), an increase in floaters, lossof visual field or decrease in visual acuity. documented in this encounterLiberty HospitalWycjawnzgd13-16-1479 NoteNurse Consultation Note Physical Exam Pt brought in urine sample to be checked pt was unable to provide urine sample at yesterdays appointment. Assessment/Plan Confusion (R41.0: Disorientation, unspecified) Medications acetaminophen, 500 mg, q6hr, PRN alendronate 70 mg Tab, See Instructions Eliquis 5 mg oral tablet, 5 mg= 1 tab(s), Oral, BID ergocalciferol 50,000 intl units Cap, See Instructions Femara 2.5 mg Tab, See Instructions, 11 refills haloperidol 5 mg Tab, 5 mg= 1 tab(s), Oral, BID, 1 refills Handicap Placard, See Instructions levothyroxine 50 mcg (0.05 mg) Tab, See Instructions Misc Medication quetiapine 25 mg Tab, See Instructions Allergies Keflex (rash) penicillins (rash) sulfamethoxazole (rash) Immunizations Vaccine Date Status Comments influenza virus vaccine, inactivated 03/20/2024 Recorded influenza virus vaccine, inactivated 02/24/2024 Given influenza virus vaccine, inactivated 03/05/2023 Recorded SARS-CoV-2 (COVID-19) mRNAMUL.ORD![id number] 03/09/2022 Recorded 2022-08-09: TPV65 influenza virus vaccine, inactivated 02/14/2022 Recorded SARS-CoV-2 (COVID-19) mRNA-1273 vaccine 03/29/2021 Recorded 2022-08-09: TPV65 influenza virus vaccine, inactivated 01/27/2021 Recorded SARS-CoV-2 (COVID-19) mRNA-1273 vaccine 08/23/2020 Recorded SARS-CoV-2 (COVID-19) mRNA-1273 vaccine 07/27/2020 Recorded pneumococcal 13-valent vaccine 02/17/2020 Recorded influenza virus vaccine, inactivated 02/20/2019 Recorded influenza virus vaccine, inactivated 03/31/2018 Recorded Lab Results Ambulatory Point of Care Results Bilirubin Urine Dipstick: Negative (06/16/24 08:37:00) Blood Urine Dipstick: Negative (06/16/24 08:37:00) Glucose Urine Dipstick: Negative (06/16/24 08:37:00) Ketones Urine Dipstick: Negative (06/16/24 08:37:00) Leukocytes Urine Dipstick: Negative (06/16/24 08:37:00) Nitrite Urine Dipstick: Negative (06/16/24 08:37:00) Protein Urine Dipstick: Negative (06/16/24 08:37:00) Specific [place] Urine Dipstick: 1.020 (06/16/24 08:37:00) Urine Appearance Urine Dipstick: Clear (06/16/24 08:37:00) Urine Color Urine Dipstick: Light yellow (06/16/24 08:37:00) Urobilinogen Urine Dipstick: Normal 0.2-1 EU/dl (06/16/24 08:37:00) pH Urine Dipstick: 5.5 (06/16/24 08:37:00)[facility]01-13-[facility] NoteOncology Progress Note Chief Complaint Follow up on Breast Cancer and lab results and CT scan. Pt is here with her Rigoberto. Diagnoses 1. Invasive ductal carcinoma of right breast (C50.311: Malignant neoplasm of lower-inner quadrant of right female breast) Oncological History/ROS/PE/Assessment and Plan Diagnoses 1. Invasive ductal carcinoma of right breast (C50.311: Malignant neoplasm of lower-inner quadrant of right female breast) 2. Osteopenia (M85.80: Other specified disorders of bone density and structure, unspecified site) History of Present Illness 68 year old white female with history of schizophrenia, hypothyroidism, sleep apnea, osteoporosis, HTN and hyperlipidemia who has family history of mom with breast cancer, she was referred to our oncology clinic for that with new diagnosis of invasive ductal carcinoma with DCIS as well of the rightbreast at 4 o'clock position. Patient was found [...] grade 1 with DCIS and without LCIS. ER/MN were positive. 90-100% positive and MN is 80 to 90% positive with HER2 [...] 3.5 mm. Ductal carcinoma in situ: Present Qnk-bu-guaprtm patterns: Solid Nuclear grade: Grade 1-2 intermediate Necrosis: Not identified Lobular carcinoma in situ: Not identified Lymphatic and or vascular invasion: Not identified. Microcalcification: Not identified. ER +91 to 100%. MN +81 to 90%. HER2 HERLINDA negative 1+ low Patient states that she did not feel any breast masses but she is concerned about the left breast as she has new nipple inversion for the last 2 weeks that she never had before. She denies any nipplebleeding or nipple discharge from any of the breast and denies any enlarged lymph nodes in the axillary regions bilaterally. All other systems were reviewed and are negative. 10/06/23: She was referred to Dr. Garcia from general surgery and-and the plan is to do right breast lumpectomyon 10/22/2023. The left breast diagnostic Mammogram and ultrasound came back BI-RADS 2 benign findings with stable left breast size and overall fibroglandular configuration with nodular parenchymal pattern. Stable inversion of the nipple. Nofocal mass. Borderline dilatation of a single duct [...] risk of recurrence at 9 years would be40%. Patient was originally scheduled for surgery on 10/22/2023. Due to need for cardiac clearance for history of A fib, surgery was not done till 12/17/23. 01/05/24: She is here post right lumpectomy done on 12/17/23 and she wants to know the treatment plan. Surgical path revealed pT1b, pN0, right breast invasive ductal carcinoma 0.9 cm greatest dimension, grade 1well differentiated, all margins were negative, closest margin is 0.9 cm associated with DCIS, no evidence of LVI. all 4 sentinel lymph nodes were negative for malignancy. previously and by biopsy itwas ER+, MN+, HER2 1+. Her husbands stated she had DEXA scan in 2022 at [facility] when found to have osteopenia and was started on vitamin D 50K weekly and Fosamax 70 mg once a week. She is not on calcium. 03/15/24: She is here for 2 months follow up for her right breast cancer history. her stated she has been acting delusional or confused for few days now as they went to [employer] this morning and could not order the same food she always usually order and was confused when she tried to go to the bathroom there. She has LISA but not been wearing the CPAP macing as the mask has not been fitting well. They also sees (more content not included)...[facility]2024 NoteCardiovascular [facility] SUBJECTIVE Chief Complaint Patient presents with Atrial Fibrillation Marley Osborn is a 68 y.o. female here for follow-up. She has known HTN, CKD III, a.fib/flutter. Her accompanied her today. HPI Patient here for 6 mo follow up PAF, hypertension, mitral valve regurgitation, and hx of pericardial effusion. Had labs last month. She is not taking Eliquis or hydrochlorothiazide. said she's not taking Eliquis due to frequent falls. Patient denies chest pain, SOB, palpitations, and lightheadedness/syncope. 04/28/2024 Pt has been home for the past year or so. Pt has only had 1 fall since being home. She feels well. She states she ambulates without issues, confirms this. She does not ambulate with any assistive devices. Denies c/o CP, dyspnea, orthopnea, PND, LE edema, dizziness/LH, palpitations, syncope. Patient Active Problem List Diagnosis Anxiety disorder HTN (hypertension) Hyperlipidemia, unspecified Loss of memory Major depression with psychotic features (CMS/HCC) LISA (obstructive sleep apnea) AMS (altered mental status) Anemia Confusion Fatigue Hypokalemia Hypothyroid Inversion of left nipple Malignant neoplasm of lower-inner quadrant of female breast (CMS/HCC) Neurocognitive disorder BMI 33.0-33.9,adult Osteopenia Schizophrenia (CMS/HCC) UTI (urinary tract infection) Vaginitis Vitamin D deficiency History of recent fall Hypersomnia Hypoxia Right shoulder pain Snoring Past Medical History: Diagnosis Date Abnormal ECG Arrhythmia Atrial fibrillation (CMS/HCC) Cancer (CMS/HCC) Heart valve disease Pericardial effusion Family History Problem Relation Name Age of Onset Heart attack Father Social History Tobacco Use Smoking status: Never Smokeless tobacco: Never Substance Use Topics Alcohol use: Yes Comment: rarely Drug use: Never Allergies Allergen Reactions Cephalexin Rash Penicillins Rash Sulfamethoxazole Rash ROS Musculoskeletal: Positive for falls. Psychiatric/Behavioral: Positive for memory loss. All other systems reviewed and are negative. OBJECTIVE Visit Vitals BP 130/84 (BP Location: Left arm, Patient Position: Sitting) Pulse 57 Ht 1.524 m (5') Wt 77.6 kg (171 lb) SpO2 97% BMI 33.40 kg/m??? Smoking Status Never BSA 1.81 m??? Medications: Current Outpatient Medications: alendronate (Fosamax) 70 mg tablet, Take 70 mg by mouth every 7 (seven) days., Disp: , Rfl: calcium 500 mg calcium (1,250 mg) tablet, Take 1 tablet by mouth with breakfast and with evening meal., Disp: , Rfl: ergocalciferol (Vitamin D-2) 1.25 MG (09328 Units) capsule, TAKE 1 CAPSULE BY MOUTH EVERY 7 DAYS, Disp: , Rfl: haloperidol (Haldol) 5 mg tablet, Take 5 mg by mouth in the morning and at bedtime., Disp: , Rfl: letrozole (Femara) 2.5 mg chemo tablet, Take 2.5 mg by mouth in the morning Take with or without food., Disp: , Rfl: levothyroxine (Synthroid, Levoxyl) 75 mcg tablet, Take 50 mcg by mouth in the morning., Disp: , Rfl: QUEtiapine (SEROquel) 50 mg tablet, Take 50 mg by mouth in the morning., Disp: , Rfl: apixaban (Eliquis) 5 mg tablet, Take 1 tablet (5 mg) by mouth two times daily., Disp: 180 tablet, Rfl: 3 Physical Exam Vitals reviewed. Constitutional: Appearance: Normal [...] Affect: Mood normal. Behavior: Behavior normal. Labs: 12/03/2023 Hgb 11.8, plt 242 Cr 1.21, BUN 15, K 4.4, eGFR 44 08/22/22 Hgb 8, plt 133 Cr 0.96, BUN 17, K 2.7, Na 141, eGFR 58, ALT 23, AST 20 TSH 2.840 08/16/22 Cr 1.27, BUN 24, K 4.3, Na 144, eGFR 42 TSH: 7.84 Testing/Procedures: Stress test 11/05/2023: normal myocardial perfusion scan ECHO 08/19/2022 Ventricular systolic function is normal, LVEF is 55-60%, diastolic function is indeterminate. Mild tricuspid and mitral regurg Mildly elevated right-sided pressures, RVSP 42. IVC is dilated. Trivial pericardial effus (more content not included)...[facility]2024 NotePatient here for 6 mo follow up PAF, hypertension, mitral valve regurgitation, and hx of pericardial effusion. Had labs last month. She is not taking Eliquis or hydrochlorothiazide. said she's not taking Eliquis due to frequent falls. Patient denies chest pain, SOB, palpitations, and lightheadedness/syncope. Review of Systems Musculoskeletal: Positive for falls. Psychiatric/Behavioral: Positive for memory loss. All other systems reviewed and are negative.[facility] 03-15-2024 Hospital Discharge instructions Follow Up Care 03/15/2024 11:59:42 With:Thien ROPER, Deb Lopez, MED, ONC Address: When: Unknown Comments:Continue femora 2.5 mg daily. Repeat diagnostic right mammogram in September 2024.RTC in 5-6 months with CMP prior. [facility] 10-14-2024 NoteOncology Progress Note Chief Complaint Follow up on Breast Ca Oncological History/ROS/PE/Assessment and Plan Diagnoses 1. Invasive ductal carcinoma of right breast (C50.311: Malignant neoplasm of lower-inner quadrant of right female breast) 2. Osteopenia (M85.80: Other specified disorders of bone density and structure, unspecified site) History of Present Illness 68 year old white female with history of schizophrenia, hypothyroidism, sleep apnea, osteoporosis, HTN and hyperlipidemia who has family history of mom with breast cancer, she was referred to our oncology clinic for that with new diagnosis of invasive ductal carcinoma with DCIS as well of the rightbreast at 4 o'clock position. Patient was found [...] grade 1 with DCIS and without LCIS. ER/MN were positive. 90-100% positive and MN is 80 to 90% positive with HER2 [...] 3.5 mm. Ductal carcinoma in situ: Present Acm-al-awmgsfi patterns: Solid Nuclear grade: Grade 1-2 intermediate Necrosis: Not identified Lobular carcinoma in situ: Not identified Lymphatic and or vascular invasion: Not identified. Microcalcification: Not identified. ER +91 to 100%. MN +81 to 90%. HER2 HERLINDA negative 1+ low Patient states that she did not feel any breast masses but she is concerned about the left breast as she has new nipple inversion for the last 2 weeks that she never had before. She denies any nipplebleeding or nipple discharge from any of the breast and denies any enlarged lymph nodes in the axillary regions bilaterally. All other systems were reviewed and are negative. 10/06/23: She was referred to Dr. Garcia from general surgery and-and the plan is to do right breast lumpectomyon 10/22/2023. The left breast diagnostic Mammogram and ultrasound came back BI-RADS 2 benign findings with stable left breast size and overall fibroglandular configuration with nodular parenchymal pattern. Stable inversion of the nipple. Nofocal mass. Borderline dilatation of a single duct [...] risk of recurrence at 9 years would be40%. Patient was originally scheduled for surgery on 10/22/2023. Due to need for cardiac clearance for history of A fib, surgery was not done till 12/17/23. 01/05/24: She is here post right lumpectomy done on 12/17/23 and she wants to know the treatment plan. Surgical path revealed pT1b, pN0, right breast invasive ductal carcinoma 0.9 cm greatest dimension, grade 1well differentiated, all margins were negative, closest margin is 0.9 cm associated with DCIS, no evidence of LVI. all 4 sentinel lymph nodes were negative for malignancy. previously and by biopsy itwas ER+, MN+, HER2 1+. Her husbands stated she had DEXA scan in 20[facility] at [facility] when found to have osteopenia and was started on vitamin D 50K weekly and Fosamax 70 mg once a week. She is not on calcium. 03/15/24: She is here for 2 months follow up for her right breast cancer history. her stated she has been acting delusional or confused for few days now as they went to [employer] this morning and could not order the same food she always usually order and was confused when she tried to go to the bathroom there. She has LISA but not been wearing the CPAP macing as the mask has not been fitting well. They also sees psychiatrist as well as sleep MD and last seen was 1 monthago. She denied any fever or dysuria but has been urinating a lot lately. She denied headaches or dizziness or blurry vision or fall, confirmed (more content not included)...[facility]09-04-2024 History of Present illness Narrative* Zee Jimenez NP - 02/04/2024 9:30 AM EDT Images from the original note were not included. Chief Complaint Patient presents with Sleep Apnea Patient is here today for follow-up of LISA. I am following the plan of care established by the physician Dr. Gardner who is present in the office today and supervising care. Dodie Andre states she has not been using her machine. She states the last time she used her mask she hadpain at the bottom of her lungs and they felt dried out. She states this occurred when she started using her new mask. She did not feel that way with the old mask. Past Medical History: Diagnosis Date Cataract Hypertension (CMS/HCC) Schizophrenia, schizo-affective (CMS/HCC) Past Surgical History: Procedure Laterality Date CATARACT EXTRACTION HYSTERECTOMY No family history on file. Social History Tobacco Use Smoking status: Never Smokeless tobacco: Never Substance Use Topics Alcohol use: Never Allergies: Cephalexin, Penicillins, and Sulfa antibiotics General: No fever or chills HEENT: No nasal congestion or runny nose Pulmonary: No shortness of breath or cough Cardiovascular: No chest pain or palpitations GI: No nausea or vomiting : No dysuria or hematuria Musculoskeletal: No new aches or pains or muscle weakness Infectious: no recurrent fevers or infections Dermatologic: No rashes or skin lesions Neurologic: No new headaches or dizziness Vitals: 02/04/24 0922 BP: 136/90 Pulse: 73 SpO2: 98% Body mass index is 32.81 kg/m . weight: 168 lb Neurologic exam: General: Normal body habitus, cooperative, pleasant Mental status: Awake, alert to person, place and time. Recent and remote memory are intact. Attention and concentration are normal. Fund of knowledge is appropriate for level of education. Mood Depressed Affect flat HEENT: NC/AT Cranial nerves: CN II: Visual hurtado full to confrontation. No loss of vision CN III, IV, : pupils equal round and reactive to light. Extraocular movements intact. No ptosis present. CN V: Facial sensation is normal. CN VII: Full and symmetric facial movement. CN VIII: Hearing is normal CN IX and X: Palate elevates symmetrically. CN XI: Shoulder shrug is normal bilaterally. CN XII: Tongue is midline without atrophy or fasciculation. Speech: Clear and fluent no aphasia or dysarthria Pronator drift: Negative bilateral upper extremity Coordination: Intact, no signs of dysmetria Good finger to nose and rapid alternating movements Sensory: Sensation is intact to light, temperature and vibratory touch throughout four extremities. Pinprick intact in all four extremities. Motor: LUE 5/5 RUE 5/5 LLE 5/5 RLE 5/5 Tone: Physiologic, no tremor, bradykinesia or rigidity DTR: Bilateral Biceps 2/4 Bilateral BR 2/4 Bilateral Patellar 1/4 Gait: Normal to casual gait Romberg's Negative Review and summary of old records: Assessment/Plan Diagnoses and all orders for this visit: LISA (obstructive sleep apnea) - CPAP ORDERS Hypersomnia Hypoxia Snoring 68-year-old female with a moderate to severe obstructive sleep apnea. She remains noncompliant withthe machine. She has gotten a new mask, she states this is the second one she has tried. She does not like this mask as when she tried it the 1 time she had pain in her lungs and felt dried out. She now has not wore a mask in several weeks. We did discuss the humidity on her machine. She states it is running out of water. She could turn the humidity down to see if the water last longer. I did encourage her to call her DME and discuss a 3rd mask and the humidity on her machine. Really she does need to try her current mask more than one night and she did only try her previous mask 11 nights. She needs to give this more of an effort. She also can use OTC products to help this. She is on multiple meds that can also be contributing to this. She is adamant she does not want an over the nose full facemask but yet states she can not get a seal and she can not keep her mouth closed. This patient likely will never tolerate just a nasal mask.She would benefit from an under the nose full facemask such as dream wear or AirFit and that was what she was sent and only tried one time. She does have significant daytime hypersomnia which is likely partially related to the untreated sleep apnea however she also thinks that this is from the Haldol. She feels like her daytime sleepiness has worsened on the Haldol. She did discuss that with Dr. Lazaro she states and dosage was not changed. She has underlying schizophrenia with catatonia and is on both Seroquel and the Haldol. . She does once again mentioned the Inspire. She is currently being treated for breast cancer. She has had her surgery. She is not a candidate until her breast cancer is in remission. She would still need clearance from her breast surgeon and her oncologist. I am not convinced inspire would be a goodoption for her due to the fact that the generator is placed in the chest area and would block imaging that she may need in the future. She was counseled on her increased risk of stroke heart attack sudden worsening mood and memory plus other complications from not wearing her CPAP machine. . . . Plan Consider Inspire She would need clearance from oncologist and surgeon Send order to DME to call patient and discuss humidity on machine and possibly another mask Use OTC products such as xylimelts and biotene Reviewed compliance download Compliance download at next visit She is currently only taking femara for breast cancer treatment for 5-10 years and mammogram every year Get the mask on every single night She needs to make better effort in wearing mask and not giving up so easily Continue with Dr. Lazaro The patient was counseled on the risks of stroke, MN, and sudden with LISA, along with the need for compliance with the CPAP/BiPAP treatment. 40 minutes or more of cardiovascular exercise at least 3 days a week. The patient was counseled on proper sleep hygiene and adequate hours of sleep. Return to clinic: 3 months documented in this encounterLiberty [id number] Hospital Discharge instructions Follow Up Care 01/05/2024 11:37:41 With:Thien ROPER, Mhkari Lopez, MED, ONC Address: When: Unknown Comments:Check CBCD, CMP, Ammonia level, TSH and FT4.Check UA with micro and Urine culture.CT brain with andwithout.Hold Femara for 7-10 days to see if confusion gets better off it.RTC in 3 months with LFTs prior. [facility] [id number] Hospital Discharge instructions Patient Education 01/05/2024 11:25:02 Bone Density Test Bone Density Test A bone density test uses a type of X-ray to measure the amount of calcium and other minerals in a person's bones. It can measure bone density in the hip and the spine. The test is similar to having aregular X-ray. This test may also be called: Bone densitometry. Bone mineral density test. Dual-energy X-ray absorptiometry (DEXA). You may have this test to: Diagnose a condition that causes weak or thin bones (osteoporosis). Screen you for osteoporosis. Predict your risk for a broken bone (fracture). Determine how well your osteoporosis treatment is working. Tell a health care provider about: Any allergies you have. All medicines you are taking, including vitamins, herbs, eye drops, creams, and ydha-nmv-buogjsj medicines. Any problems you or family members have had with anesthetic medicines. Any blood disorders you have. Any surgeries you have had. Any medical conditions you have. Whether you are or may be . Any medical tests you have had within the past 14 days that used contrast material. What are the risks? Generally, this is a safe test. However, it does expose you to a small amount of radiation, which can slightly increase your cancer risk. What happens before the test? Do not take any calcium supplements within the 24 hours before your test. You will need to remove all metal jewelry, eyeglasses, removable dental appliances, and any other metal objects on your body. What happens during the test? You will lie down on an exam table. There will be an X-ray generator below you and an imaging device above you. Other devices, such as boxes or braces, may be used to position your body properly for the scan. The machine will slowly scan your body. You will need to keep very still while the machine does thescan. The images will show up on a screen in the room. Images will be examined by a specialist after yourtest is finished. The procedure may vary among health care providers and hospitals. What can I expect after the test? It is up to you to get the results of your test. Ask your health care provider, or the department that is doing the test, when your results will be ready. Summary A bone density test is an imaging test that uses a type of X-ray to measure the amount of calcium and other minerals in your bones. The test may be used to diagnose or screen you for a condition that causes weak or thin bones (osteoporosis), predict your risk for a broken bone (fracture), or determine how well your osteoporosis treatment is working. Do not take any calcium supplements within 24 hours before your test. Ask your health care provider, or the department that is doing the test, when your results will be ready. This information is not intended to replace advice given to you by your health care provider. Make sure you discuss any questions you have with your health care provider. Document Revised: 01/30/2022 Document Reviewed: 11/02/2020 [employer] Patient Education 2022 Legal Egg. 01/05/2024 11:22:44 Osteopenia Osteopenia Osteopenia is a loss of thickness (density) inside the bones. Another name for osteopenia is low bone mass. Mild osteopenia is a normal part of aging. It is not a disease, and it does not cause symptoms. However, if you have osteopenia and continue to lose bone mass, you could develop a condition that causes the bones to become thin and break more easily (osteoporosis). Osteoporosis can cause you to lose some height, have back pain, and have a stooped posture. Although osteopenia is not a disease, making changes to your lifestyle and diet can help to prevent osteopenia from developing into osteoporosis. What are the causes? Osteopenia is caused by loss of calcium in the bones. Bones are constantly changing. Old bone cellsare continually being replaced with new bone cells. This process builds new bone. The mineral calcium is needed to build new bone and maintain bone density. Bone density is usually highest around age 35. After that, most people's bodies cannot replace all the bone they have lost with new bone. What increases the risk? You are more likely to develop this condition if: You are older than age 50. You are a woman who went through menopause early. You have a long illness that keeps you in bed. You do not get enough exercise. You lack certain nutrients (malnutrition). You have an overactive thyroid gland (hyperthyroidism). You use products that contain nicotine or tobacco, such as cigarettes, e- cigarettes and chewing tobacco, or you drink a lot of alcohol. You are taking medicines that weaken the bones, such as steroids. What are the signs or symptoms? This condition does not cause any symptoms. You may have a slightly higher risk for bone breaks (fractures), so getting fractures more easily than normal may be an indication of osteopenia. How is this diagnosed? This condition may be diagnosed based on an X-ray exam that measures bone density (dual-energy X-ray absorptiometry, or DEXA). This test can measure bone density in your hips, spine, and wrists. Osteopenia has no symptoms, so this condition is usually diagnosed after a routine bone density screening test is done for osteoporosis. This routine screening is usually done for: Women who are age 65 or older. Men who are age 70 or older. If you have risk factors for osteopenia, you may have the screening test at an earlier age. How is this treated? Making dietary and lifestyle changes can lower your risk for osteoporosis. If you have severe osteopenia that is close to becoming osteoporosis, this condition can be treatedwith medicines and dietary supplements such as calcium and vitamin D. These supplements help to rebuild bone density. Follow these instructions at home: Eating and drinking Eat a diet that is high in calcium and vitamin D. Calcium is found in dairy products, beans, salmon, and leafy green vegetables like spinach and broccoli. Look for foods that have vitamin D and calcium added to them (fortified foods), such as orange juice, cereal, and bread. Lifestyle Do 30 minutes or more of a weight-bearing exercise every day, such as walking, jogging, or playing a sport. These types of exercises strengthen the bones. Do not use any products that contain nicotine or tobacco, such as cigarettes, e- cigarettes, and chewing tobacco. If you need help quitting, ask your health care provider. Do not drink alcohol if: ?Your health care provider tells you not to drink. ?You are , may be , or are planning to become . If you drink alcohol: ?Limit how much you use to: ?0 1 drink a day for women. ?0 2 drinks a day for men. ?Be aware of how much alcohol is in your drink. In the [place] one drink equals one 12 oz bottle of beer (355 mL), one 5 oz glass of wine (148 mL), or one 1 oz glass of hard liquor (44 mL). General instructions Take sglh-ykk-rvygdby and prescription medicines only as told by your health care provider. These include vitamins and supplements. Take precautions at home to lower your risk of falling, such as: ?Keeping rooms well-lit and free of clutter, such as cords. ?Installing safety rails on stairs. ?Using rubber mats in the bathroom or other areas that are often wet or slippery. Keep all follow-up visits. This is important. Contact a health care provider if: You have not had a bone density screening for osteoporosis and you are: ?A woman who is age 65 or older. ?A man who is age 70 or older. You are a postmenopausal woman who has not had a bone density screening for osteoporosis. You are older than age 50 and you want to know if you should have bone density screening for osteoporosis. Summary Osteopenia is a loss of thickness (density) inside the bones. Another name for osteopenia is low bone mass. Osteopenia is not a disease, but it may increase your risk for a condition that causes the bones tobecome thin and break more easily (osteoporosis). You may be at risk for osteopenia if you are older than age 50 or if you are a woman who went through early menopause. Osteopenia does not cause any symptoms, but it can be diagnosed with a bone density screening test. Dietary and lifestyle changes are the first treatment for osteopenia. These may lower your risk forosteoporosis. This information is not intended to replace advice given to you by your health care provider. Make sure you discuss any questions you have with your health care provider. Document Revised: 11/02/2020 Document Reviewed: 11/02/2020 [employer] Patient Education 2022 Legal Egg. 01/05/2024 09:08:03 Lumpectomy, Care After Lumpectomy, Care After The [...] Follow these instructions at home: Medicines Take qcmp-dun-szhikql and prescription medicines only as told by [...] to keep your urine pale yellow. ?Take ormp-isf-ccrsidh or prescription medicines. ?Eat foods that are [...] and water are not available, use hand nanotechnician. ?Change your dressing as told by your [...] your health care provider approves. Ask your healthcare provider if you may take showers. You [...] breast tenderness, swelling in your breast, and stiffnessin your arm and shoulder. Follow instructions from [...] provider. Document Revised: 07/28/2022 Document Reviewed: 07/28/2022 [employer] Patient Education 2022 Legal Egg. Follow Up Care 11/24/2023 08:36:58 With:Thien ROPER, Deb Lopez, MED, ONC Address: When: Unknown Comments:No need for chemo since no lymph nodes involvement.Refer to Rad Onc for adjuvant radiation to rightbreast.Start AI like Femara 2.5 mg once daily after she completes her radiation. She needs adjuvantendocrine therapy for 5-10 years.start Calcium 500 mg bid and continue Fosamax 70 mg once a week and continue Vitamin D 50,000 units weekly.LFTs 6 weeks after she starts Femara.RTC after the LFTs aredone. [facility] 07-17-2024 Reason for referral (narrative) , 12/17/23-R. Breast lumpectomy Referred by: Thien ROPER, Deb Lopez [facility] 05-06-2024 Hospital Discharge instructions Patient Education 10/06/2023 14:45:53 [...] Follow these instructions at home: Medicines Take tubr-oaf-plwryvi and prescription medicines only as told by [...] to keep your urine pale yellow. ?Take otmc-rzs-drdmaxz or prescription medicines. ?Eat foods that are [...] and water are not available, use hand nanotechnician. ?Change your dressing as told by your [...] your health care provider approves. Ask your healthcare provider if you may take showers. You [...] breast tenderness, swelling in your breast, and stiffnessin your arm and shoulder. Follow instructions from [...] provider. Document Revised: 07/28/2022 Document Reviewed: 07/28/2022 [employer] Patient Education 2022 Legal Egg. 10/06/2023 14:45:52 Lumpectomy Lumpectomy A lumpectomy, sometimes called a partial mastectomy, is surgery to remove a cancerous tumor or mass(the lump) from a breast. It is a form of breast- conserving or breast-preservation surgery. This means that the [...] including vitamins, herbs, eye drops, creams, and prmu-jgy-mfcrpjt medicines. Any problems you or family members [...] These include any diabetes medicines or blood thinnersyou take. Taking medicines such as aspirin and ibuprofen. These medicines can thin your blood. Do not take them unless your health care provider tells you to. Taking dicv-hst-ewduhhr medicines, vitamins, herbs, and supplements. Surgery safety [...] This will be sent to the lab fortesting. Your health care provider may also remove [...] blood oxygen level will be monitored until youleave the hospital or clinic. You will be [...] is safe. Where to find more information [employer]: cancer.org National Cancer Wink: cancer.gov Summary A lumpectomy, sometimes called a partial mastectomy, is surgery to remove a cancerous tumor or mass(the lump) from a breast. During a lumpectomy, [...] provider. Document Revised: 08/12/2022 Document Reviewed: 07/28/2022 Elsevier Patient Education 2022 Legal Egg. [facility]04-01-2024 Hospital Discharge instructions Patient Education 09/01/2023 10:41:05 [...] Follow these instructions at home: Medicines Take mzln-ihm-fysntlq and prescription medicines only as told by [...] to keep your urine pale yellow. ?Take vufz-gbs-wgvgkdt or prescription medicines. ?Eat foods that are [...] and water are not available, use hand nanotechnician. ?Change your dressing as told by your [...] your health care provider approves. Ask your healthcare provider if you may take showers. You [...] breast tenderness, swelling in your breast, and stiffnessin your arm and shoulder. Follow instructions from [...] provider. Document Revised: 07/28/2022 Document Reviewed: 07/28/2022 [employer] Patient Education 2022 Legal Egg. 09/01/2023 10:41:03 Lumpectomy Lumpectomy A lumpectomy, sometimes called a partial mastectomy, is surgery to remove a cancerous tumor or mass(the lump) from a breast. It is a form of breast- conserving or breast-preservation surgery. This means that the [...] including vitamins, herbs, eye drops, creams, and ahuc-jus-mawymnf medicines. Any problems you or family members [...] These include any diabetes medicines or blood thinnersyou take. Taking medicines such as aspirin and ibuprofen. These medicines can thin your blood. Do not take them unless your health care provider tells you to. Taking oqni-yym-oztofzf medicines, vitamins, herbs, and supplements. Surgery safety [...] This will be sent to the lab fortesting. Your health care provider may also remove [...] blood oxygen level will be monitored until youleave the hospital or clinic. You will be [...] is safe. Where to find more information [employer]: cancer.org National Cancer Wink: cancer.gov Summary A lumpectomy, sometimes called a partial mastectomy, is surgery to remove a cancerous tumor or mass(the lump) from a breast. During a lumpectomy, [...] provider. Document Revised: 08/12/2022 Document Reviewed: 07/28/2022 [employer] Patient Education 2022 Legal Egg. 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 [facility]05-14-2023 NoteAdmission Information Patient: Marley Osborn : 1955 Date of Admission: 10/09/2022 08:56:04 Date of Discharge: 10/13/2022 16:45:00 Code Status: [place] DNR - CC Comfort Care PCP: Tamika ROPER, Jamil Consult: Frank LOZA-BOTTLE AND GLASS INSPECTOR, Malissa Soto; Luz LOZA-BOTTLE AND GLASS INSPECTOR, Cintia Rincon; Shay LOZA-HANS, Rachel Delcid; Zeus ROPER, Cody Francis; Augusto [...] psychosis in a catatonic state, transferred from [facility] after presenting to their emergency department with chief complaint of altered mental status and hypernatremia. All medical history obtained from transfer paperwork and also patient's Freddy over the phone. Patient is currently residing at [facility]. Admitted to ICU. Consult to nephrology for hyponatremia management. Patient CODE STATUS changed to DNR CC. Transferred to general medical floor on 10/10. Discussed plan of care moving forward with , and options for discharge, after discussion with palliative care opted for hospice. Patient was accepted by [facility], closer to patient's home. Patient was discharged to their facility in stable condition. Assessment: Catatonic schizophrenia Hypernatremia Hypothermia Metabolic encephalopathy Bradycardia Chronic anticoagulation on Eliquis Discharge Plan: - [facility] Discharge Time Spent with Patient: 25 [...] 2.4 (OCTOBER 10) 2 (more content not included)...[facility]05-11-2023 NoteChief Complaint Unresponsiveness Reason for Consultation Transfer from [facility] History of Present Illness This is a 66-year-old female with a history of longstanding schizophrenia who also has a history ofparoxysmal atrial fibrillation and is on Eliquis 5 mg twice daily who has had multiple psychiatric hospitalizations over the last year according to the because of schizophrenia. She has been at [facility] as well as at [facility]. She has apparently been at [...] quite lethargic and was transferred to the [facility] she was found to be hypernatremic as well as hypothermic. She had a sodium of 152 and she was transferred over to [facility]. At this time the reports that [...] spontaneous movement deep tendon reflexes are 1+ throughouttoes are downgoing sensory exam shows some withdrawal but no posturing Additional Vitals No qualifying data available. Assessment/Plan 1. Hypernatremia 2. Schizophrenia 3. Hypothermia 4. Metabolic encephalopathy Rule out brainstem stroke/basilar ischemia. Stat brain MRI and MRA without contrast was ordered. Check CPK rule out rhabdomyolysis. Add EEG to work-up. I did discuss my impression with the atbedside. Time spent with patient, chart, and medical records 70 minutes 5. Chronic anticoagulation 6. Bradycardia Orders: LORazepam, 2 mg, IV Push, Injection, Once, PRN anxiety, First Dose: 10/10/22 13:26:00 EDT, DispenseFrom Location: [address], 10/10/22 13:26:00 EDT Creatine Phosphokinase Electroencephalogram [...] Daily, PRN Klor-Con M2 (more content not included)...[facility] 10-09-2022 NoteReason for Consultation Hypernatremia History of Present Illness This is a 66-year-old female, who was initially at [facility] and then sent to [facility] ER on 10/08/22. She has a past medical history of catatonic schizophrenia,chronic kidney disease stage unknown at this time, anemia, hypothyroid, DVT hypertension, coronary artery disease, A- fib on Eliquis, osteoporosis, with frequent admissions due to worsening confusion and psychosis in a catatonic state. She was transferred from [facility] this morning after presentingto their emergency department with chief complaint of altered mental status and hypernatremia. All medical history obtained from extensive transfer paperwork and staff. Prior to sending her to the [facility] was given 2 liters of NS. Review of labs on 10/04/22 with a serum sodium of 150, potassium 3.5, CO2 30, cr 0.99. At [facility] she had an initial blood pressure of [...] bradycardia. According to paperwork and report from [facility], with patient's underlying psychiatric disorders, baseline ranges from appropriate behavior to catatonia. Patient was admitted to [facility] on 09/28 due toworsening confusion and psychosis and in a catatonic state. In assessment dated 09/29, patient is noncommunicative does not cooperate, does not follow commands. Upon arrival to [facility] she was noted to behypothermic with a temp of 34.0, bear hugger placed. Nephrology was consulted for hypernatremia. She is seen and evaluated in the ICU, no family present. She is obtunded with little to no response to sternal rub or verbal stimuli. She did open her eyeswith palpation of her abdomen. She remained noncommunicative and did not follow any commands. Afterextensive review of transfer paper work, it appears she has received IVF of at least 2 liters NS, 2to 3 liters D5LR, and D5/.45 and KCL [...] data available. Assessment/Plan 1. Hypernatremia Transferred to [facility] from [facility] for hypernatremia, AMS, hypotension, hypothermia, UTI and multiple electrolyte imbalances. Sodium level on 10/04/22 was elevated at 150. Admission to [facility] ER her sodiumwas 158 at 13:25. Subsequent sodium levels: 10/08 at 18:23-152, 22:00-155, 10/09 at 02:00- 154, 04:00-156, 06:00- 156. Her potassium was 3.3 and [...] Date: 10/09/22 16:28:00 EDT, Dispense From Location: [facility], 10/09/22 16:28:00 EDT Basic Metabolic Profile [...] PRN Normal Saline F (more content not included)...[facility] 10-09-2022 NoteHistory of Present Illness The patient is a 66-year-old female, past medical history of catatonic schizophrenia, chronic kidney disease stage unknown at this time, anemia, hypothyroid, DVT hypertension, coronary artery disease, A-fib on Eliquis, osteoporosis, with frequent admissions due to worsening confusion and psychosis in a catatonic state, transferred from [facility] after presenting to their emergency department with chief complaint of altered mental status and hypernatremia. All medical history obtained from transfer paperwork and also patient's Freddy over the phone. Patient is currently residing at [facility]. Patient arrived to [facility] emergency department at 1317 on 10/08 from [facility],with initial blood pressure of 195/91, heart rate of 55 with subsequent pulse rates in the 40s, temp of 36.2, 100% on room air. Patient received 400 mg Cipro IV piggyback, was started on 5% dextrose in LR. Initial lab results showed a glucose of 96, creatinine 1.97, GFR 60, sodium of 158, potassium4.1. Normal hepatic function. UA showing positive nitrites, moderate leukocytes, WBC>100. CT of the head without contrast showed no acute intracranial abnormality. EKG showed sinus bradycardia. According to paperwork and report from [facility], with patient's underlying psychiatric disorders, baseline ranges from appropriate behavior to catatonia. Patient was admitted to [facility] on 09/28 due toworsening confusion and psychosis and in a catatonic state. In assessment dated 09/29, patient is noncommunicative does not cooperate, does not follow commands. Patient is seen in [facility] ICU and arouses to name but [...] psychosis in a catatonic state, transferred from [facility] after presenting to their emergency department with chief complaint of altered mental status and hypernatremia. All medical history obtained from transfer paperwork and also patient's Freddy over the phone. Patient is currently residing at [facility]. Admitted to ICU. Assessment: Catatonic [...] - D/w patient's Freddy, . Lives in [place] and will not be able to visit untiltomorrow. Patient follows with psychiatrist Dr. Lazaro. states the patient has had multipleadmissions due to repeat episodes of her catatonia. - Social work for discharge planning - Consider palliative care consult, goals of care, ACP Medical necessity for ongoing hospitalization: Hypernatremia, metabolic encephalopathy, hypothermia Complication risk: Endorgan failure due to hypothermia, increasing sodium Disposition Activity at baseline: Ambulatory, currently resides at [facility] Anticipated Discharge Location: [facility] Time spent with the patient bedside, reviewing old and current records, talking to staff and coordinating patient care has been approximately 60 minutes. Code Status: Full Resuscitation Problem List/Past Medical History Ongoing No qualifying data Historical No qualifying data Medications Inpatient acetaminophen, 650 mg, Oral, q6hr, PRN acetaminophen, 650 mg, Oral, q6hr, PRN Dextrose 5% in Lactated Ringers Inj (more content not included)...[facility]01-16-2023 Progress note Author Reggie Quintana [facility] June 17, 2022 2:18pmNote Date/TimeJan2022 2:19pm[place] [address] Psychiatry Progress Note Signed Patient: Marley Osborn MR#: [id number] : 1955 Acct:[id number] Age/Sex: 66 / F Adm Date: 2 Loc: Room: [address] [place] [address] Type : ADM IN Attending Dr: Reggie Quintana MD Copies to: ~ Date of Service: 06/17/2022 Subjective Subjective Narrative: Ms. Osborn reported that she is doing okay. She reported that she coughed last night and believes that she kept everybody up. She denied any hallucinations atthis time. Denied any side effects to hercurrent medications. MSE: Appearance: grossly normal.? Fair grooming [...] <Electronically signed by Reggie Quintana MD> 06/17/22 [facility] Work Phone: 1(119) 453-298601-15-2023 Consult note Author Nilo Rosales [facility] June 16, 2022 5:18pmNote Date/TimeJan2022 6:43pm[place] [address] Hospitalist Consult Note Signed Patient: Marley Osborn MR#: [id number] : 1955 Acct:[id number] Age/Sex: 66 / F Adm Date: 2 Loc: Room: [address] [place] [address] Type: ADM IN Attending Dr: Reggie Quintana MD Copies to: MD Melva Noel MD Kristopher L Lindbloom, DO Linda Obika, SURGICAL TECHNOLOGY INSTRUCTOR~ HPI DATE OF CONSULTATION: 06/14/22 REQUESTING PROVIDER: [...] reporting that she is having burning with urinationand abdominal pain when urinating. She denies chest [...] Sodium 138, Potassium 4.3, Chloride 104, Carbon Foqbjlb05.6, Anion Gap 13.7, BUN 36 H, Creatinine 1.44 H, Est GFR ( Amer) 44, Est GFR (Non-Af Amer)36, Glucose 97, Calcium 10.1, Total Bilirubin 0.9, [...] Flagyl and Terazol treatment for possible vaginitis, SPORTS MARKETER following ?Continue supportive care Increased creatinine?likely due to poor oral intake ?Creatinine 1.44, encouraged increased oral intake ?Monitor BMP Schizophrenia ?Continue plan of care Psychiatric team (2) Schizophrenia: Documented By: Marlene Guerra APRN 06/14/22 1842 Signed By: <Electronically signed by DENIA Guerra> 06/15/22 1538 <Electronically signed by Nilo Rosales DO> 06/16/22 1718 [facility] Work Phone: 1(740) 353-709101-15-2023 Progress note Author Marlene Guerra [facility] June 16, 2022 3:07pmNote Date/TimeJanuary 2022 2:37pm[address] [address] Hospitalist Progress Note Signed Patient: Marley Osborn MR#: [id number] : 1955 Acct:[id number] Age/Sex: 66 / F Adm Date: 2 Loc: 1S Room: 8Q3963-1 Type: ADM IN Attending Dr: Reggie Quintana [...] Tab.Er.Prt PO 06/02/23 08:59 20 meq DAILY BAISLIA Administration Risperidone 3 mg 05/30/22 22:00 06/15/22 [...] Flagyl and Terazol treatment for possible vaginitis, SPORTS MARKETER following ?Continue supportive care Increased creatinine?likely due to poor oral intake ?Creatinine 1.44, encouraged increased oral intake ?Monitor BMP Schizophrenia ?Continue plan of care Psychiatric team (2) Schizophrenia: Documented By: Marlene Guerra APRN 06/16/22 1435 Signed By: <Electronically signed by DENIA Guerra> 06/16/22 1507 [facility] Work Phone: 1(150) 517-318201-15-2023 Progress note Author Marty brewster [facility] June 16, 2022 8:49amNote Date/TimeJanuary 2022 8:48am[place] [address] Psychiatry Progress Note Signed Patient: Marley Obsorn MR#: [id number] : 1955 Acct:[id number] Age/Sex: 66 / F Adm Date: 2 Loc: Room: [address] [place] [address] Type : ADM IN Attending Dr: Reggie Quintana MD Copies to: ~ Date of Service: 06/16/2022 Subjective Subjective Narrative: Ms. Osborn states she is doing better today. She appears less distracted compared to yesterday. Shedenied any AVH or feeling paranoid. I believe she had a change in mental status due to an active infection. SPORTS MARKETER started Flagyland an antifungal. She denied SI/HI. [...] signed by Marty Mclean MD> 06/16/22 0849 [facility] Work Phone: 1(317) 180-761301-14-2023 Progress note Author Marty brewster [facility] June 15, 2022 8:48amNote Date/TimeJan2022 8:45[place] [address] Psychiatry Progress Note Signed Patient: Marley Osborn MR#: [id number] : 1955 Acct:[id number] Age/Sex: 66 / F Adm Date: 2 Loc: Room: [address] [place] [address] Type : ADM IN Attending Dr: Reggie [...] signed by Marty Mclean MD> 06/15/22 0848 [facility] Work Phone: 1(484) 604-674301-13-2023 Progress note Author Marty brewster [facility] June 14, 2022 3:56pmNote Date/TimeJan2022 3:56pmP[place] [address] Psychiatry Progress Note Signed Patient: Marley Osborn MR#: [id number] : 1955 Acct:[id number] Age/Sex: 66 / F Adm Date: 2 Loc: 1S Room: [address] [place] [address] Type : ADM IN Attending Dr: Reggie Quintana MD Copies to: ~ Date of Service: 06/14/2022 Subjective Subjective Narrative: Ms. Osborn presents as paranoid. She is agitated on exam today and rpeorts hearing voices. She stopped taking her medication this am and has been accusing staff of plotting against her. We will delayher discharge. UA was ordered. MSE: Appearance: grossly [...] explained Documented By: Marty Mclean MD 3 [id number] Signed By: <Electronically signed by Marty Mclean MD> 06/14/22 1554 [facility] Work Phone: 1(986) 906-644101-12-2023 Progress note Author Marty brewster [facility] June 13, 2022 12:12pmNote Date/TimeJanuary 2022 12:12pm[address] [address] Psychiatry Progress Note Signed Patient: Marley Osborn MR#: [id number] : 1955 Acct:[id number] Age/Sex: 66 / F Adm Date: 2 Loc: Room: [address] [place] [address] Type : ADM IN Attending Dr: Reggie [...] signed by Marty Mclean MD> 06/13/22 1212 [facility] Work Phone: 1(853) 955-842301-11-2023 Progress note Author Marty brewster [facility] June 12, 2022 9:52amNote Date/TimeJanuary 2022 9:52[place], [place] [address] Psychiatry Progress Note Signed Patient: Marley Osborn MR#: [id number] : 1955 Acct:[id number] Age/Sex: 66 / F Adm Date: 2 Loc: Room: [address] [place] [address] Type : ADM IN Attending Dr: Reggie [...] signed by Marty Mclean MD> 06/12/22 0952 [facility] Work Phone: 1(894) 531-799401-10-2023 Progress note Author Marty brewster [facility] June 11, 2022 6:33pmNote Date/TimeJan2022 6:32pm[place] [address] Psychiatry Progress Note Signed Patient: Marley Osborn MR#: [id number] : 1955 Acct:[id number] Age/Sex: 66 / F Adm Date: 2 Loc: Room: [address] [place] [address] Type : ADM IN Attending Dr: Reggie [...] signed by Marty Mclean MD> 06/11/22 1833 [facility] Work Phone: 1(151) 375-151001-09-2023 Progress note Author Marty brewster [facility] June 10, 2022 10:44amNote Date/TimeJanuary 2022 10:44[place] [address] Psychiatry Progress Note Signed Patient: Marley Osborn MR#: [id number] : 1955 Acct:[id number] Age/Sex: 66 / F Adm Date: 2 Loc: Room: [address] [place] [address] Type : ADM IN Attending Dr: Reggie Quintana MD Copies to: ~ Date of Service: 06/10/2022 Subjective Subjective Narrative: Ms. Osborn reports that she is feeling a little better today. She slept well last night and has been having less auditory hallucinations. Patient was personally seen by me on the day of the encounter. I reviewed the history and performedthe freitas elements of the assessment. I formulated the planof care and confirmed this with the Resident as noted below Pt denied any SE due to medications. Pt reports her legs are feeling stronger today and she is having an easier time moving around. Pt denies visual hallucinations, SI, or HI. diet clerk working on placement. MSE: Appearance: grossly normal.? [...] <Electronically signed by Marty Mclean MD> 06/10/22 [facility] Work Phone: 1(566) 805-863701-08-2023 Progress note Author Reggie Quintana [facility] June 09, 2022 12:26pmNote Date/TimeJan2022 12:26[place] [address] Psychiatry Progress Note Signed Patient: Marley Osborn MR#: [id number] : 1955 Acct:[id number] Age/Sex: 66 / F Adm Date: 2 Loc: Room: [address] [place] [address] Type : ADM IN Attending Dr: Reggie Quintana MD Copies to: ~ Date of Service: 06/09/2022 Subjective Subjective Narrative: Ms. Osborn reported that she heard some things earlier this morning. She reported that when she hasincreased dose of Risperdal she gets restless. She [...] <Electronically signed by Reggie Quintana MD> 06/09/221225 [facility] Work Phone: 1(137) 243-711601-07-2023 Progress note Author Reggie Quintana [facility] June 08, 2022 12:13pmNote Date/TimeJan2022 12:13pm[place] [address] Psychiatry Progress Note Signed Patient: Marley Osborn MR#: [id number] : 1955 Acct:[id number] Age/Sex: 66 / F Adm Date: 2 Loc: 1S Room: [address] [place] [address] Type : ADM IN Attending Dr: Reggie [...] <Electronically signed by Reggie Quintana MD> 06/08/223 [facility] Work Phone: 1(935) 871-619601-06-2023 Progress note Author Marty brewster [facility] June 07, 2022 9:18amNote Date/TimeJanuary 2022 9:[place] 1548470 Psychiatry Progress Note Signed Patient: Marley Osborn MR#: [id number] : 1955 Acct:[id number] Age/Sex: 66 / F Adm Date: 2 Loc: 1S Room: [address] [place] [address] Type : ADM IN Attending Dr: Reggie [...] signed by Marty Mclean MD> 06/07/22 0918 [facility] Work Phone: 1(797) 831-825701-05-2023 Progress note Author Marty brewster [facility] June 06, 2022 6:57amNote Date/TimeJanuary 2022 6:57am[address] [address] Psychiatry Progress Note Signed Patient: Marley Osborn MR#: [id number] : 1955 Acct:[id number] Age/Sex: 66 / F Adm Date: 2 Loc: 1S Room: [address] [place] [address] Type : ADM IN Attending Dr: Reggie [...] signed by Marty Mclean MD> 06/06/22 0657 [facility] [facility] Work Phone: 1(998) 866-277701-04-2023 Progress note Author Marty brewster [facility] June 05, 2022 9:13amNote Date/TimeJan2022 9:13[place], [place] [address] Psychiatry Progress Note Signed Patient: Marley Osborn MR#: [id number] : 1955 Acct:[id number] Age/Sex: 66 / F Adm Date: 2 Loc: Room: [address] [place] [address] Type : ADM IN Attending Dr: Reggie [...] signed by Marty Mclean MD> 06/05/22 0913 [facility] Work Phone: 1(694) 754-904201-03-2023 Progress note Author Marty brewster [facility] June 04, 2022 8:29amNote Date/TimeJan2022 8:27[place], [place] [address] Psychiatry Progress Note Signed Patient: Marley Osborn MR#: [id number] : 1955 Acct:[id number] Age/Sex: 66 / F Adm Date: 2 Loc: Room: [address] [place] [address] Type : ADM IN Attending Dr: Reggie [...] hear them and is sometimes able to giveshort replies after question is repeated. She is [...] signed by Marty Mclean MD> 06/04/22 08 [facility] Work Phone: 1(509) 878-520301-02-2023 Progress note Author Marty brewster [facility] June 03, 2022 12:55pmNote Date/TimeJanuary 2022 10:30[place] [address] Psychiatry Progress Note Signed with Samia Patient: Marley Osborn MR#: [id number] : 1955 Acct:[id number] Age/Sex: 66 / F Adm Date: 2 Loc: Room: [address] [place] [address] Type : ADM IN Attending Dr: Reggie [...] difficulty overnight understanding directions and needed constant rblv-[id number]-[id number] prompting tocomplete tasks like going to bathroom [...] the encounter. I reviewed the history and performedthe freitas elements of the assessment. I formulated [...] impairment/dementia with MMSE score of 1130 -Continue risperidone 1 mg po q daily [...] signed by MD TARA Vasquez> 06/03/22 1206 [facility] Work Phone: 1(796) 251-553801-01-2023 Consult note Author Elvin Khan [facility] June 02, 2022 12:01pmNote Date/TimeDecember 2021 12:13[place] [address] Hospitalist Consult Note Signed Patient: Marley Osborn MR#: [id number] : 1955 Acct:[id number] Age/Sex: 66 / F Adm Date: 2 Loc: Room: [address] [place] [address] Type: ADM IN Attending Dr: Reggie Quintana MD Copies to: MD Elvin Noel MD Kim E Knight, MD Paula G Smith, DENIA~ HPI DATE OF CONSULTATION: 06/01/22 REQUESTING PROVIDER: Reggie Quintana Consult Narrative Reason for Consult: Anemia, hypokalemia, and confusion HPI: Mrs. Osborn is a 66-year-old female with a PMH of schizophrenia, dementia, and HTN that was transferred to [facility] for MHP from [facility] where she was hospitalized for increasing confusion and aggression. Patient seen and evaluated in 1 S., she is sitting in a table eating lunch. She is alert. She denies chest pain, shortness of breath. She denies dysuria. She denies fever, chills. She was admitted to [facility] and work-up included a CT of [...] was previously treated with IV levofloxacin at [facility] for UTI. Hospitalist team has been [...] % (Auto) 57.4, Lymph % (Auto) 26.3, [place] % (Auto) 11.7, Eos % (Auto) 4.1, Baso % (Auto) 0.5, Nucleat RBC Rel Count 0.3, Neut # (Auto) 2.9, Lymph # (Auto) 1.3, [place] # (Auto) 0.6, Eos # (Auto) 0.2, Baso # (Auto) 0.0 05/31/22 21:37: Urine Color Yellow, Urine Appearance Clear, Urine pH 5.5, Ur Specific [place] 1.030, Urine Protein Negative, Urine Glucose (UA) Normal, UrineKetones Negative, Urine Occult Blood TraceH, Urine Nitrite Negative, Urine Bilirubin Negative, Urine [...] L, LDL Cholesterol, Calc 50, VLDL Cholesterol 16,HDL Cholesterol 73, Cholesterol/HDL Ratio 1.9, 25-OH Vitamin [...] signed by Elvin Khan MD> 06/02/22 1201 [facility] Work Phone: 1([phone]) 657-246901-01-2023 Progress note Author Marty brewster [facility] June 02, 2022 9:23amNote Date/TimeJan2022 9:23[place] [address] Psychiatry Progress Note Signed Patient: Marley Osborn MR#: [id number] : 1955 Acct:[id number] Age/Sex: 66 / F Adm Date: 2 Loc: Room: [address] [place] [address] Type : ADM IN Attending Dr: Reggie [...] By: <Electronically signed by Marty Mclean MD> 06/02/2223 [facility] Work Phone: 1(555) 848-730712-31-2022 Progress note Author Marty brewster [facility] June 01, 2022 8:51amNote Date/TimeDecember 2021 8:50[place] [address] Psychiatry Progress Note Signed Patient: Marley Osborn MR#: [id number] : 1955 Acct:[id number] Age/Sex: 66 / F Adm Date: 2 Loc: Room: [address] [place] [address] Type : ADM IN Attending Dr: Reggie Quintana MD Copies to: ~ Date of Service: 06/01/2022 Subjective Subjective Narrative: Ms. Osborn is a 66 year old female transferred from [facility] where she was admitted 05/27 for UTI [...] sometimes slurred. Many sentences are incomplete, many phrasesincomprehensible Attitude: cooperative Thought Process: slowed, disorganized Thought [...] difficulty. History of schizophrenia with multiple hospitalizations. [facility] ruled out CVA with negative head CT and negative head/neck CTA. -Continue risperidone per -Given recent UTI with altered mental status, repeat UA today. Received IV levaquin while at [facility] beginning 05/27. Cultures pending at time of transfer. -CBC, BMP labs to monitor signs of infection, electrolytes -Fall risk; continue safety precautions -Continue to monitor mental status -Risks, benefits, and alternatives of treatment explained -Consult hospitalist for underlying medical problems. Documented By: Marty Mclean MD 2 0849 Signed By: <Electronically signed by Marty Mclean MD> 06/01/22 0851 [facility] Work Phone: 1(131) 111-225112-30-2022 History and physical note Author Reggie Quintana [facility] May 31, 2022 1:20pmNote Date/TimeDecemb2021 11:07am[place] [address] Psychiatry H&P Signed Patient: Marley Osborn MR#: [id number] : 1955 Acct:[id number] Age/Sex: 66 / F Adm Date: 2 Loc: Room: [address] [place] [address] Type: ADM IN Attending Dr: Reggie Quintana MD Copies to: MD Melva Noel MD Rebecca Howard, MD, RES~ Date of Service: 05/31/2022 HPI History of Present Illness History of present illness: Ms. Osborn is a 66 year old female transferred from [facility] where she was admitted 05/27 for UTI with confusion, dysphagia, and incomprehensible, slurred speech. According to nursing admit notes, she has been displaying more aggressive behavior hitting , jumping on bed, and breaking things at home. She has reportedly had hallucinations since March. Her outpatient psychiatrist increased her risperidone 2-3 months ago in response to these symptoms. Reported discharge from [facility] 3 weeks ago; I cannot see record of this. She has fair insight into her diagnosis of schizophrenia and her past hospitalizations and can accurately name her medication allergies. However, she does not appear to be a reliable historian for recent events. She does not recognize recent aggression or changes to her behavior. She states she hasbeen on Risperidone since 1811 and is unable [...] According to transfer paperwork, she had been onmultiple medications but was weaned off to only [...] sometimes slurred. Many sentences are incomplete, many phrasesincomprehensible Attitude: cooperative Thought Process: slowed, disorganized Thought [...] the encounter. I reviewed the history and performedthe freitas elements of the physical examination. I formulated the plan of care and confirmed this withthe resident as noted below. Patient presenting due to concern for altered mental status and hallucinations. Continues to reporthallucinations. Interview somewhat limited due to cognitionissues. She [...] difficulty. History of schizophrenia with multiple hospitalizations. [facility] ruled out CVA with negative head CT and negative head/neck CTA. -Restarted home risperidone, dose increased to 3mg. To increase to twice daily beginning tomorrow. -Discontinued home Abilify for concerns of polypharmacy. -Given recent UTI with altered mental status, repeat UA today. Received IV levaquin while at [facility] beginning 05/27. Cultures pending at time of transfer. -CBC, BMP labs to monitor signs of infection, electrolytes -Fall risk; continue safety precautions -Continue to monitor mental status -Risks, benefits, and alternatives of treatment explained Documented By: Reggie Quintana MD 05/31/22 1054 Signed By: <Electronically signed by Reggie Quintana MD> 05/31/22 1320 <Electronically signed by MD TRAA Vasquez> 05/31/22 1226 [facility] Work Phone: Discharge summary Author Reggie Quintana [facility] June 18, 2022 2:21pmNote Date/TimeJan2022 2:21[place] [address] Discharge Summary Signed Patient: Marley Osborn MR#: [id number] : 1955 Acct:[id number] Age/Sex: 66 / F Adm Date: 2 Loc: Room: [address] [place] [address]: Reggie Quintana MD Copies to: [...] is a 66 [facility] with confusion, dysphagia, andincomprehensible, slurred speech.? According to nursing admit notes, she has been displaying more aggressive behavior hitting , jumping on bed, and breaking things at home.? She has reportedly had hallucinations since March. Her outpatient psychiatrist increased her risperidone 2-3 months ago in responseto these symptoms. Reported discharge from [facility] 3 weeks ago; I cannot see [...] According to transfer paperwork, she had been onmultiple medications but was weaned off to only [...] better arrangements were made to have her follow- up with outpatient services. We attempted to get [...] diet. No activity restrictions. Instructions: Schizophrenia (DC), [facility] [place] Instructions Prescriptions: New risperidone [...] Patient Ordered By: Reggie Quintana Follow Up: [facility] [Outside] - 06/19/22 9:15 am (Case Management: Friday06/17/22 11:15am, Yusra will call you for a discharge follow up. Psychiatry: 07/02/22 at 10:30am with Dr. Lazaro) [facility] Hotline [Outside] Melva Escobedo MD [Primary Care Provider] - 06/24/22 1:30 pm (for home health referral) Documented By: Reggie Quintana MD 06/18/22 1419 Signed By: <Electronically signed by Reggie Quintana MD> 06/18/22 1421 [facility] Work Phone: Evaluation + Plan note Future Appointments Appointment Date:06/24/2023 01:40:00 PM Scheduled Provider:Keya Lucas Location:[facility] Appointment Type: Open Appointment Date:02/24/2024 11:00:00 AM Scheduled Provider: Location:[facility] Appointment Type:FM Medicare Wellness Subsequent Diagnostic Tests Pending * T[facility] Future App[facility]ments Appointment Date:09/29/2023 10:00:00 AM Scheduled Provider:Deb Neumann MD Location:[facility] Appointment Type:ONC Office Visit 30 (FT) Appointment Date:12/16/2023 01:40:00 PM Scheduled Provider:Keya Lucas Location:[facility] Appointment Type: Open Appointment Date:02/24/2024 11:00:00 AM Scheduled Provider: Location:[facility] Appointment Type:FM Medicare Wellness Subsequent Future Scheduled Tests Radiology* US Breast Unilateral Lt Complete 09/02/23 * MA Mamm Diag w/CAD if perf and 3D LT [facility]02/23 [facility] Future Appointments Appointment Date:09/29/2023 10:00:00 AM Scheduled Provider:Deb Neumann MD Location:[facility] Appointment Type:ONC Office Visit 30 (FT) Appointment Date:12/16/2023 01:40:00 PM Scheduled Provider:Keya Lucas [facility] Type:FM Open Appointment Date:02/24/2024 11:00:00 AM Scheduled Provider: [facility] App[facility] Type: Medicare Wellness Subsequent General Surgery [facility] Evaluation + Plan note Future Appointments Appointment Date:11/11/2023 10:30:00 AM Scheduled Provider:Deb Neumann MD Location:[facility] Appointment Type:ONC Office Visit 30 (FT) Appointment Date:12/16/2023 01:40:00 PM Scheduled Provider:Keya Lucas Location:[facility] Appointment Type: Open Appointment Date:02/24/2024 11:00:00 AM Scheduled Provider: Location:[facility] Appointment Type:FM Medicare Wellness [facility] Future App[facility]ments Appointment Date:12/16/2023 01:40:00 PM Scheduled Provider:Keya Lucas [facility] Appointment Type:FM Open Appointment Date:12/22/2023 01:00:00 PM Scheduled Provider:Milo GARCIA MD Location:[facility] Appointment Type:GS Post Op 15 Appointment Date:01/05/2024 11:00:00 AM Scheduled Provider:Deb Neumann MD Location:[facility] Appointment Type:ONC Office Visit 30 (FT) Appointment Date:02/24/2024 11:00:00 AM Scheduled Provider: [facility] App[facility] Future Appointments Appointment Date:01/05/2024 11:00:00 AM Scheduled Provider:Deb Neumann MD Location:[facility] Appointment Type:ONC Office Visit 30 (FT) Appointment Date:01/06/2024 04:00:00 PM Scheduled Provider:Milo GARCIA MD Location:[facility] Appointment Type:GS Post Op 15 Appointment Date:02/24/2024 11:00:00 AM Scheduled Provider: Location:[facility] Appointment Type: Medicare Wellness Subsequent Appointment Date:06/15/2024 02:40:00 PM Scheduled Provider:Keya Luacs Location:[facility] Appointment Type:[facility] General Surgery [place] Evaluation + Plan note Future Appointments Appointment Date:01/06/2024 04:00:00 PM Scheduled Provider:Milo GARCIA MD Location:[facility] Appointment Type:GS Post Op 15 Appointment Date:02/24/2024 11:00:00 AM Scheduled Provider: Location:[facility] Appointment Type: Medicare Wellness Subsequent Appointment Date:04/06/2024 01:40:00 PM Scheduled Provider:Deb Neumann MD Location:.[facility] Appointment Type:ONC Office Visit 20 (FT) Appointment Date:06/15/2024 02:40:00 PM Scheduled Provider:Keya Lucas Location:[facility] Appointment Type: Open Future Scheduled Tests Laboratory* Hepatic Function Panel 03/22/24 [facility] Evaluation + Plan note Future Appointments Appointment Date:02/24/2024 11:00:00 AM Scheduled Provider: Location:[facility] Appointment Type: Medicare Wellness Subsequent Appointment Date:04/06/2024 01:40:00 PM Scheduled Provider:Deb Neumann MD Location:[facility] Appointment Type:ONC Office Visit 20 (FT) Appointment Date:06/15/2024 02:40:00 PM Scheduled Provider:Keya Lucas Location:[facility] Appointment Type: Open Future Scheduled Tests Laboratory* Hepatic Function Panel 03/22/24 [facility] Evaluation + Plan note Future Appointments Appointment Date:06/14/2024 11:00:00 AM Scheduled Provider:Deb Neumann MD Location:[facility] Appointment Type:ONC Office Visit 20 (FT) Appointment Date:06/15/2024 02:40:00 PM Scheduled Provider:Keya Lucas Location:[facility] Appointment Type: Open Appointment Date:02/24/2025 11:00:00 AM Scheduled Provider: Location:[facility] Appointment Type: Medicare Wellness Subsequent Diagnostic Tests Pending * Urine Culture 03/15/24 [facility] evaluation + Plan note Future Appointments Appointment Date:06/14/2024 11:00:00 AM Scheduled Provider:Deb Neumann MD Location:[facility] Appointment Type:ONC Office Visit 20 (FT) Appointment Date:06/15/2024 02:40:00 PM Scheduled Provider:Keya Lucas Location:[facility] Appointment Type: Open Appointment Date:02/24/2025 11:00:00 AM Scheduled Provider: Location:[facility] Appointment Type:FM Medicare Wellness Subsequent Diagnostic Tests Pending * Hepatic Function Panel 06/07/24 [facility] evaluation + Plan note Future Appointments Appointment Date:06/15/2024 02:40:00 PM Scheduled Provider:Keya Lucas Location:[facility] Appointment Type: Open Appointment Date:10/26/2024 10:40:00 AM Scheduled Provider:Deb Neumann MD Location:.ONCOLOGY Appointment Type:ONC Office Visit 20 (FT) Appointment Date:02/24/2025 11:00:00 AM Scheduled Provider: Location:[facility] Appointment Type: Medicare Wellness Subsequent Diagnostic Tests Pending * Comprehensive Metabolic Panel 10/12/24 [facility] evaluation + Plan note Future Appointments Appointment Date:10/26/2024 10:40:00 AM Scheduled Provider:Deb Neumann MD Location:[facility] Appointment Type:ONC Office Visit 20 (FT) Appointment Date:02/24/2025 11:00:00 AM Scheduled Provider: Location:[facility] Appointment Type: Medicare Wellness Subsequent Diagnostic Tests Pending * Comprehensive Metabolic Panel 06/15/24 * Thyroid Stimulating Hormone 06/15/24 * Lipid Panel 06/15/24 Future Scheduled Tests Laboratory* Comprehensive Metabolic Panel 06/15/24 * Lipid Panel 06/15/24 * Thyroid Stimulating Hormone 06/15/24 [facility] evaluation + Plan note Future Appointments Appointment Date:10/26/2024 10:40:00 AM Scheduled Provider:[facility]C Office Visit 20 (FT) Appointment Date:02/24/2025 11:00:00 AM Scheduled Provider: Location:[facility] Appointment Type: Medicare Wellness Subsequent Diagnostic Tests Pending * Urine Culture 09/15/24 Future Scheduled Tests Laboratory* Comprehensive Metabolic Panel 06/15/24 * Lipid Panel 06/15/24 * Thyroid Stimulating Hormone 06/15/24 [facility] [employer] + Plan note Future Appointments Appointment Date:02/24/2025 11:00:00 AM Scheduled Provider: Location:[facility] Appointment Type: Medicare Wellness Subsequent Future Scheduled Tests Laboratory* Comprehensive Metabolic Panel 06/15/24 * Comprehensive Metabolic Panel 10/26/24 * Lipid Panel 06/15/24 * Thyroid Stimulating Hormone 06/15/24 [facility] [employer] + Plan note Future Appointments Appointment Date:11/02/2024 02:00:00 PM Scheduled Provider:Deb Neumann MD Location:.ONCOLOGY Appointment Type:ONC Office Visit 20 (FT) Appointment Date:02/24/2025 11:00:00 AM Scheduled Provider: Location:[facility] Appointment Type: Medicare Wellness Subsequent Future Scheduled Tests Laboratory* Comprehensive Metabolic Panel 06/15/24 * Lipid Panel 06/15/24 * Thyroid Stimulating Hormone 06/15/24 [facility] evaluation + Plan note Future Appointments Appointment Date:02/24/2025 11:00:00 AM Scheduled Provider: Location:[facility] Appointment Type: Medicare Wellness Subsequent Appointment Date:05/03/2025 01:00:00 PM Scheduled Provider:Deb Neumann MD Location:.ONCOLOGY Appointment Type:ONC Office Visit 20 (FT) Future Scheduled Tests Laboratory* Comprehensive Metabolic Panel 06/15/24 * Comprehensive Metabolic Panel 05/03/25 * Hepatic Function Panel 05/03/25 * Lipid Panel 06/15/24 * Thyroid Stimulating Hormone 06/15/24 Radiology* BD Bone Density DEXA 04/12/25 * MA Mamm Diag w/CAD if perf and 3D RT 11/03/24 * MA Mamm Screen w/CAD if perf and 3D [place] 04/12/25 [facility] Evaluation + Plan note Future Appointments Appointment Date:02/24/2025 11:00:00 AM Scheduled Provider: [facility] Appoint[facility] Type: Medicare Wellness Subsequent Appointment Date:05/03/2025 01:00:00 PM Scheduled Provider:Thien ROPER, Deb Lopez Location:.ONCOLOGY Appointment Type:ONC Office Visit 20 (FT) Future Scheduled Tests Laboratory* Comprehensive Metabolic Panel 06/15/24 * Comprehensive Metabolic Panel 05/03/25 * Hepatic Function Panel 05/03/25 * Lipid Panel 06/15/24 * Thyroid Stimulating Hormone 06/15/24 Radiology* BD Bone Density DEXA 04/12/25 * MA Mamm Screen w/CAD if perf and 3D [place] 04/12/25 [facility] Evaluation note* Diagnosis Onset Date Resolution Status AMS (altered mental status) acuteAnemiaacuteConfusionacuteHTN (hypertension)acuteHypokalemiaacute Neurocognitive disorderacuteSchizophreniaacuteUTI (urinary tract infection)acute Vaginitisacute [facility] Work Phone: Evaluation note* Diagnosis Altered mental status, unspecified altered mental status type- Primary Hypernatremia Hyperosmolality and/or hypernatremia Urinary tract infection without hematuria, site unspecified documented in this encounter [facility] Work Phone: evaluation noteNo assessment information available [facility] Work Phone: Evaluation note* Diagnosis LISA (obstructive sleep apnea)- Primary Obstructive sleep apnea (adult) (pediatric) Hypersomnia Hypersomnia, unspecified Hypoxia Hypoxemia Snoring Other dyspnea and respiratory abnormality [facility] Diagnosis PCO (posterior capsular opacification), bilateral- Primary Unspecified after-cataract Pseudophakia Lens replaced by other means documented [facility] this [facility] Narrative No data available for this section [facility] Dis[facility] instructionsAmbulatory Orders* DME Home Medical Equipment Time Frame: 1 Year, Location: Determined By Patient Additional Instructions Regular diet. No activity restrictions.[facility] Work Phone: Hospital Discharge instructions No data available for this section [facility] No data available for this section [facility] Chief Complaint and Reason for Visit Chief Complaint Schizophrenia Reason for Visit AMS (altered mental status) Anemia Confusion HTN (hypertension) Hypokalemia Neurocognitive disorder Schizophrenia UTI (urinary tract infection) Vaginitis Chief Complaint BH Unknown Advance Directives No Advanced Directives Records Found Advance Directive Response Recorded Date/ Time Advance Directives No May 2:56pm Advance Directive Response Recorded Date/ Time Advance Directives No May 3:56pm Summary Purpose Family History No Family History [...] Melva Escobedo MD Primary Care Provider Active Nahum Noel Provider, Attending ProviderActiveJudith Cordoba MD Other ProviderActive Team Status: Active Member Role Status Dates Mevla Escobedo MD Primary Care Provider Active Team MemberRelationshipSpecialtyStart DateEnd Date Jamil Lundberg MD [address] [place] [address] PCP - GeneralPsychiatry08/25/22Team MemberRelationshipSpecialtyStart DateEnd Date Jamil Lundberg MD [address] [place] [address] PCP - GeneralPsychiatry08/25/22Team MemberRelationshipSpecialtyStart DateEnd Date Jamil Lundberg MD [address] [place] [address] PCP - GeneralPsychiatry08/25/22Team MemberRelationshipSpecialtyStart DateEnd Date Jamil Lundberg MD [address] [place] [address] PCP - GeneralPsychiatry08/25/22Team MemberRelationshipSpecialtyStart DateEnd Date Jamil Lundberg MD [address] [place] [address] PCP - GeneralPsychiatry08/25/22Team MemberRelationshipSpecialtyStart DateEnd Date Jamil Lundberg MD [address] [place] [address] PCP - GeneralPsychiatry08/25/22 Team Status: Active Member Role Status Dates Melva Escobedo MD Primary Care Provider Active S tart: December 09, 2023 Candelario Caceres ProviderActiveStart: December 09, 2023 Team Status: Inactive Member Role Status Dates Milo Garcia MD FACS Attending Provider Active Start: December 17, 2023 End: December 17, 2023Team MemberRelationshipSpecialtyStart DateEnd Date Keya Nieves MD [address] [place], [place] [id number] [facility]04/07/23Team MemberRelationshipSpecialtyStart DateEnd Date Keya Nieves MD [address] [place], [place] [phone] Referring PhysicianP[facility]04/07/23Te MemberRelationshipSpecialtyStart DateEnd Date Keya Nieves MD [address] [place], [place] [phone] Referring PhysicianP[facility]04/07/23Team MemberRelationshipSpecialtyStart DateEnd Date Keya Nieves MD [address] [place], [place] [phone] Referring PhysicianP[facility]mont [facility] Hospital04/07/23 Reason for Visit (unrecogniz ed section and content) ReasonCommentsAltered Mental StatusPer Sojourn, sodium high. Given multiple liters of fluid, pt continues altered.ReasonCommentsSleep ApneaReasonCommentsEye ExamBlurred Vision Scheduled Active and Recently Administ ered Medications (unrecognized section and content) Medication Order//03/2023 ciprofloxacin (CIPRO) IVPB 400 mg (COMPLETED) 400 mg, IntraVENous, ONCE, 1 dose, On Fri10/08/22 at 1630, Antimicrobial Indications: Urinary Tract Infection * 1628 (New Bag - Provider: Hafsa Hermosillo RN) * 0557 (Stopped - Provider: Ifeoma A Rubén, RN - Comment: Prior to this RN arrival) Medication Order305//03/2023 dextrose 5 % in lactated ringers infusion IntraVENous, at 100 mL/hr, CONTINUOUS, Starting on Fri10/08/22 at 1700 * 1729 (New Bag - Provider: Hafsa Hermosillo, RN) * 0800 (Patient Transferred to Other Facility - Provider: Johanne Conroy, CHRISTIAN) INFORMATION SOURCE (unrecogn ized section and content) DATE CREATED AUTHOR 10/10/2022 [facility] DATE CREATED AUTHOR AUTHOR'S ORGANIZ ATION 10/11/2022 [facility] DATE CREATED AUTHOR AUTHOR'S ORGANIZ ATION 10/15/2022 [facility] DATE CREATED AUTHOR AUTHOR'S ORGANIZ ATION 03/17/2024 [facility] DATE CREATED AUTHOR AUTHOR'S ORGANIZ ATION 03/22/2024 [facility] DATE CREATED AUTHOR AUTHOR'S ORGANIZ ATION 06/18/2024 [facility] DATE CREATED AUTHOR AUTHOR'S ORGANIZ ATION 06/20/2024 [facility] DATE CREATED AUTHOR AUTHOR'S ORGANIZ ATION 08/30/2024 [facility] DATE CREATED AUTHOR AUTHOR'S ORGANIZ ATION 09/16/2024 [facility] DATE CREATED AUTHOR AUTHOR'S ORGANIZ ATION 09/19/2024 [facility] DATE CREATED AUTHOR AUTHOR'S ORGANIZ ATION 10/30/2024 [facility] DATE CREATED AUTHOR AUTHOR'S ORGANIZ ATION 12/11/2024 [facility] DATE CREATED AUTHOR AUTHOR'S ORGANIZ ATION 12/14/2024 [facility] DATE CREATED AUTHOR AUTHOR'S ORGANIZ ATION 12/29/2024 [facility] DATE CREATED AUTHOR AUTHOR'S ORGANIZ ATION 02/25/2025 [facility] DATE CREATED AUTHOR AUTHOR'S ORGANIZ ATION 03/04/2025 [facility] DATE CREATED AUTHOR AUTHOR'S ORGANIZ ATION 03/19/2025 [facility] Goals (unrecognized section and content) Goals may be documented in a n alternate section FOR RECORDS PERTAINING TO PATIENTS WHO ARE [...] BE BASED ON THE PRIMARY CLINICAL RECORDS. [facility] [employer] [facility]. provides no warranty or guarantee of the accuracy or completeness of information in this document.
--- NOTE | 2025-03-27 20:25 | ECG_ITS ---
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 Measurements Intervals [place] Rate: 66 P: 61 KS: 162 QRS: 62 QRSD: 80 T: 15 QT: 384 QTc: 398 Interpretive Statements 1100 Sinus rhythm 4068 Nonspecific Twave abnormality 9130 borderline ECG Compared to ECG 10/08/2024 08:02:07 No significant changes Electronically Signed On 03-27-2025 22:23:04 EDT by TOM WALLER M.D.
--- NOTE | 2025-03-27 20:25 | XR_ITS ---
The [address] [address] Patient Name: MARLEY OSBORN MRN: [id number] date: 1955 Sex: F Assigned Patient Location: ER Current Patient Location: Accession/Order Number: [id number] Exam Date: 03/27/2025 20:28 Report Date: 03/28/2025 08:03 At the request of: RAHUL MCNEAL MD Procedure: XR chest 1V PORTABLE AP ERECT CHEST 5 hours CLINICAL HISTORY: altered mental status COMPARISON: 10/12/2024 The heart is borderline enlarged. There is no vascular congestion. Right basilar atelectasis or scarring is seen. There is no other consolidation. There is no effusion or pneumothorax. The osseous structures are intact. Mild endplate spurring and slight dextroscoliotic curvature are noted. XR/XR chest 1V IMPRESSION: RIGHT BASILAR ATELECTASIS OR SCARRING. NO OTHER ACUTE FINDINGS Impression dictated by: Layne Lew M.D. 03/28/2025 8:03 AM Dictation Location: [place] [address] Electronically authenticated by: [id number] Y Date: 03/28/2025 08:03
--- NOTE | 2025-03-27 20:27 | ED.GENADUL1 ---
HPI HPI - General Adult General Chief complaint: Psychiatric Symptoms Stated complaint: other Time Seen by Provider: 03/27/25 20:21 Source: family Mode of arrival: Wheelchair History of Present Illness HPI narrative: past history of schizophrenia and catatonia. Past history of A. fib, hypothermia and hypothyroidism. Presents stuporous. states she has been this way for 2 days. States when he is speaking to her she just stares. No injury he is aware of. No fever, GI symptoms. He brought her to the ER via private vehicle. She was helped into a wheelchair and brought back by security awake but non verbal. Eyes open with blank stare Related Data Home Medications ?Medication ?Instructions ?Recorded ?Confirmed alendronate 70 mg tablet 70 mg PO QWEEK 05/05/23 10/08/24 ergocalciferol (vitamin D2) 1,250 1,250 mcg PO QWEEK 07/28/23 10/08/24 mcg (50,000 unit) capsule (Vitamin D2) apixaban 5 mg tablet (Eliquis) 5 mg PO BID 10/09/24 10/09/24 letrozole 2.5 mg tablet 2.5 mg PO DAILY 10/09/24 10/09/24 quetiapine 50 mg tablet 50 mg PO .QHS 10/09/24 10/09/24 Previous Rx's ?Medication ?Instructions ?Recorded haloperidol 5 mg tablet 5 mg PO AM #30 tabs 10/13/24 levofloxacin 750 mg tablet 750 mg PO Q48H #2 tabs 10/13/24 levothyroxine 100 mcg tablet 100 mcg PO ACB #30 tabs 10/13/24 Allergies Allergy/AdvReac Type Severity Reaction Status Date / Time amoxicillin Allergy Hives Verified 12/03/23 11:20 cephalexin (From Keflex) Allergy Hives Verified 12/03/23 11:20 Sulfa (Sulfonamide Allergy Hives Verified 12/03/23 11:20 Antibiotics) Opioid HPI Opioid Management Most Recent Opioid Data: Last Pain Scale 0 10/13/24, 09:53 Last Pain Intensity 0 10/11/24, 10:28 Last ORT Total Score 2 10/08/24, 10:51 Last ORT Risk Category Low Risk 10/08/24, 10:51 Ur Phencyclidine Scrn, (NEGATIVE) Negative Today, 20:52 Review of Systems ROS Status of ROS unobtainable due to mental status PFSH [facility] Medical History (Updated 03/27/25 @ 21:49 by Wojciech Bowser MD) CKD stage 3a, GFR 45-59 ml/min ?N18.31 - Chronic kidney disease, stage 3a (ICD-10) Schizophrenia, catatonic type ?F20.2 - Catatonic schizophrenia (ICD-10) History of admission to inpatient psychiatry department ?Z86.59 - Personal history of other mental and behavioral disorders (ICD-10) Palpitations ?R00.2 - Palpitations (ICD-10) History of blood transfusion ?Z92.89 - Personal history of other medical treatment (ICD-10) Anemia ?D64.9 - Anemia, unspecified (ICD-10) Urinary tract infection ?N39.0 - Urinary tract infection, site not specified (ICD-10) Falls ?W19.XXXA - Unspecified fall, initial encounter (ICD-10) Atrial fibrillation ?I48.91 - Unspecified atrial fibrillation (ICD-10) Uterine fibroid ?D25.9 - Leiomyoma of uterus, unspecified (ICD-10) Paranoid schizophrenia ?F20.0 - Paranoid schizophrenia (ICD-10) IBS (irritable bowel syndrome) ?K58.9 - Irritable bowel syndrome without diarrhea (ICD-10) Vitamin D deficiency ?E55.9 - Vitamin D deficiency, unspecified (ICD-10) Osteopenia ?M85.80 - Other specified disorders of bone density and structure, unspecified site (ICD-10) Sleep apnea ?G47.30 - Sleep apnea, unspecified (ICD-10) Major depression with psychotic features ?F32.3 - Major depressive disorder, single episode, severe with psychotic features (ICD-10) Memory loss ?R41.3 - Other amnesia (ICD-10) Inversion, nipple ?N64.59 - Other signs and symptoms in breast (ICD-10) Hypothyroid ?E03.9 - Hypothyroidism, unspecified (ICD-10) Hyperlipidemia ?E78.5 - Hyperlipidemia, unspecified (ICD-10) Hypertension ?I10 - Essential (primary) hypertension (ICD-10) Fatigue ?R53.83 - Other fatigue (ICD-10) Anxiety ?F41.9 - Anxiety disorder, unspecified (ICD-10) DCIS (ductal carcinoma in situ) ?D05.10 - Intraductal carcinoma in situ of unspecified breast (ICD-10) Invasive ductal carcinoma of breast ?C50.919 - Malignant neoplasm of unspecified site of unspecified female breast (ICD-10) Osteoporosis ?M81.0 - Age-related osteoporosis without current pathological fracture (ICD-10) Depression with anxiety ?F41.8 - Other specified anxiety disorders (ICD-10) Arthritis ?M19.90 - Unspecified osteoarthritis, unspecified site (ICD-10) GERD (gastroesophageal reflux disease) ?K21.9 - Gastro-esophageal reflux disease without esophagitis (ICD-10) Arrhythmia ?I49.9 - Cardiac arrhythmia, unspecified (ICD-10) Schizophrenia ?F20.9 - Schizophrenia, unspecified (ICD-10) Surgical History (Updated 10/08/23 @ 09:10 by Zee Crowe NP) Hx of tonsillectomy ?Z90.89 - Acquired absence of other organs (ICD-10) History of cataract extraction with lens replacement H/O cataract extraction ?Z98.49 - Cataract extraction status, unspecified eye (ICD-10) H/O breast biopsy ?Z98.890 - Other specified postprocedural states (ICD-10) S/P breast biopsy, right ?Z98.890 - Other specified postprocedural states (ICD-10) H/O exploratory laparotomy ?Z98.890 - Other specified postprocedural states (ICD-10) History of adenoidectomy ?Z90.89 - Acquired absence of other organs (ICD-10) HX: benign breast biopsy ?Z98.890 - Other specified postprocedural states (ICD-10) S/P lumpectomy, left breast ?Z98.890 - Other specified postprocedural states (ICD-10) H/O colonoscopy ?Z98.890 - Other specified postprocedural states (ICD-10) Family History (Updated 10/08/23 @ 09:22 by Zee Crowe NP) Other ALS (amyotrophic lateral sclerosis) Dementia Family history of breast cancer Family history of myocardial infarction Social History (Updated 12/17/23 @ 07:22 by Malissa Evangelista) Within the past year, how often did you have a drink containing alcohol: monthly or less Smoking status: Never smoker Non-prescribed substance use: denies use Highest level of school completed/degree received: Bachelor's degree Exam Constitutional Vital Signs, click to edit/add: Last Vital Signs Temp 93.8 F L 03/27/25 21:07 Pulse 68 03/27/25 20:18 Resp 16 03/27/25 20:18 BP 147/72 H 03/27/25 20:18 Pulse Ox 96 03/27/25 20:18 O2 Del Method Room Air 03/27/25 20:18 Common normals: average body habitus, alert and well nourished Exam limitations: altered mental status Other: slow response but does answer questions. offers no complaint HENMT Common normals: normocephalic and head/scalp atraumatic Eye Common normals: PERRL and conjunctivae normal Respiratory Common normals: normal respiratory effort, no retractions, no use of accessory muscles and clear to auscultation bilaterally Cardio Common normals: regular rate, regular rhythm, S1 normal heart sound and S2 normal heart sound GI Common normals: Normal to inspection, nondistended, normoactive bowel sounds present, soft to palpation and non-tender Extremity Common normals: normal to inspection Neuro Other: awake. slow to respond to verbal stimuli. but eventually does respond with short answers and then fades back to states of staring Course Vital Signs Vital signs: Vital Signs Pulse Rate 68 03/27/25 20:18 Respiratory Rate 16 03/27/25 20:18 Blood Pressure 147/72 H 03/27/25 20:18 Pulse Oximetry 96 03/27/25 20:18 Oxygen Delivery Method Room Air 03/27/25 20:18 Temperature 93.8 F L 03/27/25 21:07 Pulse Rate 68 03/27/25 20:18 Respiratory Rate 16 03/27/25 20:18 Blood Pressure 147/72 H 03/27/25 20:18 Pulse Oximetry 96 03/27/25 20:18 Oxygen Delivery Method Room Air 03/27/25 20:18 Medical Decision Making MDM Narrative Medical decision making narrative: past history of schizophrenia catatonia and appears to be in a state of catatonia now. states she has been this way since yesterday. She arrives and appears to be stuporous. Workup initiated including labs, blood cultures and CT brain. VSS but she is hypothermic with temp 94 rectal. warm fluids and warm blankets ordered along with the bear hugger labs reveal hypothermia, hyperthyroid. Clinically high suspicion of schizophrenia catatonia. CT brain neg. cxary per my review ? hazy infiltrate RLL. blood culutures already ordered. Levaqui ordered. Discussed with hospitalist Dr Segura who recommends transfer to [facility] Discussed with hospitalist Dr Jaeger at [facility] and patient accepted in transfer Lab Data Labs: Lab Results 03/27/25 03/27/25 03/27/25 Range/Units 20:27 20:29 20:52 WBC 5.7 (4.0-11.0) 10^3/uL RBC 3.80 L (4.20-5.40) 10^6/uL Hgb 11.4 L (12.0-16.0) g/dL Hct 34.5 L (36.0-48.0) % MCV 90.8 (81.0-99.0) fL MCH 30.0 (26.7-34.0) pg MCHC 33.0 (29.9-35.2) g/dL RDW 14.0 (11.0-15.0) % Plt Count 190 (150-450) 10^3/uL MPV 9.7 (9.5-13.5) fL Neut % (Auto) 72.1 (43.0-75.0) % Lymph % (Auto) 19.1 L (20.5-60.0) % Howard % (Auto) 7.0 (1.7-12.0) % Eos % (Auto) 1.2 (0.9-7.0) % Baso % (Auto) 0.4 (0.2-2.0) % Neut # (Auto) 4.1 (1.4-6.5) 10^3/uL Lymph # (Auto) 1.1 L (1.2-3.8) 10^3/uL Howard # (Auto) 0.4 (0.3-0.8) 10^3/uL Eos # (Auto) 0.1 (0.0-0.7) 10^3/uL Baso # (Auto) 0.0 (0.0-0.1) 10^3/uL Abs Immat Gran (auto) 0.01 (0.00-0.03) 10^3/uL Imm/Tot Granulo (auto) 0.2 (0.0-0.5) % ESR 88 H (<=30) mm/hr PT 10.8 (9.0-11.6) sec INR 1.02 Sodium 141 (136-145) mmol/L Potassium 4.4 (3.5-5.1) mmol/L Chloride 103 (98-107) mmol/L Carbon Dioxide 30.1 (21.0-32.0) mmol/L Anion Gap 12.3 BUN 28.0 H (7.0-18.0) mg/dL Creatinine 1.41 H (0.55-1.02) mg/dL Est GFR ( Amer) 45 L (>=60 mL/min/1.73m^2) Est GFR (Non-Af Amer) 37 L (>=60 mL/min/1.73m^2) BUN/Creatinine Ratio 19.9 Glucose 93 (74-106) mg/dL Lactate 1.0 (0.4-2.0) mmol/L Calcium 10.2 H (8.5-10.1) mg/dL Total Bilirubin 0.5 (0.2-1.0) mg/dL AST 19 (15-37) U/L ALT 39 (14-59) U/L Alkaline Phosphatase 134 H (46-116) U/L Troponin I High Sens 10.8 (4.0-51.3) pg/mL C-Reactive Protein 1.36 H (<=0.50) mg/dL Total Protein 7.7 (6.4-8.2) g/dL Albumin 3.7 (3.4-5.0) g/dL Globulin 4.0 g/dL Albumin/Globulin Ratio 0.9 TSH 0.011 L (0.358-3.740) uIU/mL Urine Color Lt. yellow (YELLOW) Urine Clarity Clear (CLEAR) Urine pH 6.0 (5.0-9.0) Ur Specific [place] <=1.005 A (1.005-1.025) Urine Protein Negative (NEG/TRACE) mg/dL Urine Glucose (UA) Negative (NEGATIVE) mg/dL Urine Ketones Negative (NEGATIVE) mg/dL Urine Occult Blood Negative (NEGATIVE) Urine Nitrite Negative (NEGATIVE) Urine Bilirubin Negative (NEGATIVE) Urine Urobilinogen 0.2 (0.2-1.0) EU/dL Ur Leukocyte Esterase Negative (NEGATIVE) Urine RBC None seen (0-2) #/HPF Urine WBC 0-2 A (NONE SEEN) #/HPF Ur Squamous Epith Cells Rare (NONE/RARE) #/LPF Urine Crystals None seen (None Seen) #/HPF Urine Bacteria None seen (NONE SEEN) #/HPF Urine Casts None seen (NONE SEEN) #/LPF Urine Mucus None seen (NONE SEEN) Salicylates <2.8 (<=19.9) mg/dL Urine Opiates Screen Negative (NEGATIVE) Ur Buprenorphine Scrn Negative (NEGATIVE) Ur Oxycodone Screen Negative (NEGATIVE) Urine Methadone Screen Negative (NEGATIVE) Acetaminophen <2.0 L (10.0-30.0) ug/mL Ur Barbiturates Screen Negative (NEGATIVE) U Tricyclic Antidepress Negative (NEGATIVE) Ur Phencyclidine Scrn Negative (NEGATIVE) Ur Amphetamines Screen Negative (NEGATIVE) U Methamphetamines Scrn Negative (NEGATIVE) U Benzodiazepines Scrn Negative (NEGATIVE) Urine Cocaine Screen Negative (NEGATIVE) U Cannabinoids Screen Negative (NEGATIVE) Ethanol Quant <3 mg/dL POC Glucose 96 (74-106) mg/dL Critical Care Time Critical Care Time Total Critical Care Time: 45 Discharge Plan Discharge Chief Complaint: Psychiatric Symptoms Clinical Impression: Hypothermia, Hyperthyroidism, Catatonia schizophrenia Patient Disposition: [facility]
[2025-03-27 20:34] LABS: Hematocrit 34.5 % (36.0-48.0); Hemoglobin 11.4 g/dL (12.0-16.0); Immature Granulocytes Abs Auto 0.01 10^3/uL (0.00-0.03); Immature Granulocytes Pct Auto 0.2 % (0.0-0.5); Lymphocytes Absolute Auto 1.1 10^3/uL (1.2-3.8); Mean Corpuscular HGB Conc 33.0 g/dL (29.9-35.2); Mean Corpuscular Hemoglobin 30.0 pg (26.7-34.0); Mean Corpuscular Volume 90.8 fL (81.0-99.0); Platelet Count 190 10^3/uL (150-450); Red Blood Count 3.80 10^6/uL (4.20-5.40); White Blood Count 5.7 10^3/uL (4.0-11.0)
[2025-03-27 20:53] LABS: Lactate/Lactic Acid 1.0 mmol/L (0.4-2.0)
[2025-03-27 20:55] LABS: INR 1.02; Prothrombin Time 10.8 sec (9.0-11.6)
[2025-03-27] MEDS: 0.9 % SODIUM CHLORIDE 1,000 ML 999 ML IV (20:59)
[2025-03-27 21:00] LABS: Alanine Aminotransferase 39 U/L (14-59); Albumin Globulin Ratio 0.9; Albumin Level 3.7 g/dL (3.4-5.0); Alkaline Phosphatase 134 U/L (46-116); Anion Gap 12.3; Aspartate Amino Transferase 19 U/L (15-37); Blood Urea Nitrogen 28.0 mg/dL (7.0-18.0); Calcium 10.2 mg/dL (8.5-10.1); Carbon Dioxide 30.1 mmol/L (21.0-32.0); Chloride 103 mmol/L (98-107); Estimated GFR (African America 45 (>=60 mL/min/1.73m^2); Estimated GFR (Non-African Ame 37 (>=60 mL/min/1.73m^2); Globulin 4.0 g/dL; Glucose 93 mg/dL (74-106); Potassium 4.4 mmol/L (3.5-5.1); Salicylate <2.8 mg/dL (<=19.9); Sodium 141 mmol/L (136-145); Thyroid Stimulating Hormone 0.011 uIU/mL (0.358-3.740); Total Protein 7.7 g/dL (6.4-8.2)
[2025-03-27 21:01] LABS: Acetaminophen <2.0 ug/mL (10.0-30.0)
[2025-03-27 21:01] LABS: Glucose Urine UA NEGATIVE (NEGATIVE)
[2025-03-27 21:07] LABS: Cast Seen? NONE SEEN #/LPF (NONE SEEN); Crystals Seen? None Seen #/HPF (None Seen)
[2025-03-27 22:01] LABS: Cannabinoid Screen Urine NEGATIVE (NEGATIVE); Methamphetamines Screen Urine NEGATIVE (NEGATIVE); Tricyclic Antidepressant Urine NEGATIVE (NEGATIVE)
[2025-03-27] MEDS: LEVOFLOXACIN IN DEXTROSE 5 % 500 MG/100 ML PREMIX 100 MG IV (22:17)
--- NOTE | 2025-03-27 22:28 | PC.NURSE ---
Patient's is leaving to go home for the night. He is aware that she is going to be transferred to [facility]. He was offered for us to call him when she gets a transport time or when she leaves this ED, he declined the phone call, states he will call this hospital in the morning before he drives to [facility] to make sure she has left here.
== END 2025-03-28 00:10 | disposition short-term general hospital (02) ==
PROVIDERS: Emergency Provider Internal Medicine; PCP Nurse Practitioner
DX: F20.2 Catatonic schizophrenia (principal); I48.91 Unspecified atrial fibrillation; E03.9 Hypothyroidism, unspecified; R68.0 Hypothermia, not associated with low environmental temperature; E05.90 Thyrotoxicosis, unspecified without thyrotoxic crisis or storm; Z79.899 Other long term (current) drug therapy
CPT/HCPCS: 36415; 70450; 71045; 80053; 80179; 80307; 80320; 80329; 81001; 82140; 82948; 83605; 84443; 84484; 85025; 85610; 85652; 86140; 87040; 93005; 96365; 99285

== ENCOUNTER 2025-05-19 12:24 | Outpatient (OUT) | payer MEDICARE, SELFPAY ==
--- OUTSIDE RECORDS SUMMARY | 2025-05-19 12:28 | XMS_ITS | Clinical Summary ---
Author Organization [facility] Address [address] [place] [address] Care Team Providers Care Custom Shop Worker Name Role Phone Ezequiel Keya OIL HEATER INSTALLER Unavailable Allergies Active AllergyReactionsCriticalityNoted LfbyLbvsprhgQqboboghfhYencOqf60/17/2023 Other Reaction(s): Unknown ZnbawrvkwdyGqqzPnf73/17/2023 Other Reaction(s): Unknown Sulfa EsqfaidcjrgCaabIwu90/17/2023 Other Reaction(s): Unknown Medications MedicationSigDispense QuantityRefillsLast FilledStart [...] capsule 12/12/2022ctive ergocalciferol (Vitamin D2) 1.25 MG (46193 UT) capsule Take 50,000 Int'l Units by mouth 1 (one) time per week10/03/2023ctive alendronate (Fosamax) 70 MG tablet Take 70 mg by mouth once a week04/14/2023ctive Femara 2.5 MG chemo tablet Take 2.5 mg by mouth Daily.01/05/2024ctive Active Problems ProblemNoted DateDiagnosed PmobYeblnxfuinf56/04/2608Yyzvvgh21/04/2024Snoring 02/04/2024OSA (obstructive sleep apnea)11/12/2023 Social History Tobacco UseTypesPacks/DayYears UsedDateSmoking Tobacco: NeverSmokeless Tobacco: Never Tobacco Cessation:Counseling Given: Not Answered Alcohol UseStandard Drinks/WeekCommentsNever0 (1 standard drink = 0.6 oz pure alcohol)CommentsUnknownSex and Gender InformationValueDate RecordedSex Assigned at BirthNot on fileLegal AumHlbwfc84/01/2023 8:31 PM EDTGender Identity Not on fileSexual OrientationNot on file Last Filed Vital Signs Vital SignReadingTime TakenCommentsBlood Fbwpdpvj893/9009 9:22 AM EDT Onvec208702/04/2024 9:22 AM EDTTemperature--Respiratory Rssk283811/12/2023 11:22 AM EDTOxygen Sqgmsarhwn97%02/04/2024 9:22 AM EDTInhaled Oxygen Concentration-- Uphxcv40.2 kg (168 lb)02/04/2024 9:22 AM VQBHrmqna172.4 cm (5')02/04/2024 9:22 AM EDTBody Mass Index32.8102/04/2024 9:22 AM EDT Plan of Treatment DateTypeDepartmentCare Team (Latest Contact Info)Xrjpfgsmpll92/31/2026 10:00 AM EDTOffice Visit [facility] [address] [place] [phone] Ameena Beal MD [address] [place] [address] Health MaintenanceDue DateLast DoneCommentsCT Iqinedvhrpea30/28/1956Colonoscopy 1955olorectal Cancer Uczxwdunb60/28/1955FIT-DNA1955FIT1955 FOBT1955 8302Dyoyztkninegr80/28/1331Totgrqtcr67/28/1995Pneumococcal Vaccine: 65+ Years (2 of 2 - PCV20 or PCV21)/COVID-19 Vaccine (2024- season)/, 03/05/2023, 03/09/2022, Additional history existsInfluenza Vaccine (#1)/, 02/24/2024, 03/05/2023, Additional history exists Insurance Care Teams Team MemberRelationshipSpecialtyStart DateEnd Date Keya Nieves NP [address] [place] [address] Referring PhysicianFamily Txvjcuuk40/6/23
--- OUTSIDE RECORDS SUMMARY | 2025-05-19 12:28 | XMS_ITS | Encounter Summary ---
Author Organization [facility] Address [address] [place] [address] Care Team Providers Care Sewage Screen Operator Name Role Phone Keya Nieves SHIP CARPENTER-C Primary Care Provider [phone] Reason for Visit * ReasonCommentsMed Refill Encounter Details DateTypeDepartmentCare Team (Latest Contact Info)Kevifhwowqh93/05/2025Refill [facility] [address] [place] [address] Alyson Morrissey, FINANCIAL ANALYSIS MANAGER [address] [place] [phone] Paroxysmal atrial fibrillation (CMS/HCC) Social History Tobacco UseTypesPacks/DayYears UsedDateSmoking Tobacco: NeverSmokeless Tobacco: NeverAlcohol UseStandard Drinks/WeekCommentsYes0 (1 standard drink = 0.6 oz pure alcohol)rarelyUT Safety & EnvironmentAnswerDate RecordedFear of Current or Ex-PartnerNot on file07/24/2023Emotionally AbusedNot on file07/24/2023hysically AbusedNot on file07/24/2023Sexually AbusedNot on file07/24/2023hysically or Sexually AbusedNot on file07/24/2023CommentsUnknownSex and Gender InformationValueDate RecordedSex Assigned at WuteeXbbvvp52/29/2025 10:21 AM EDT Legal ErnUzdpbt06/23/2023 11:24 AM EDTGender BhnjpcvmTteqbl93/29/2025 10:21 AM EDTSexual OrientationHeterosexual or Pxtjfoav57/29/2025 10:21 AM EDTdocumented as of this encounter Plan of Treatment Not on file documented as of this encounter Visit Diagnoses Diagnosis Paroxysmal atrial fibrillation (CMS/HCC) Atrial fibrillation documented in this encounter Care Teams Team MemberRelationshipSpecialtyStart DateEnd Date Keya Nieves FNP-C [address] [place] [address] PCP - GeneralNurse Practitioner12/28/24documented as of this encounter
--- OUTSIDE RECORDS SUMMARY | 2025-05-19 12:28 | XMS_ITS | Clinical Summary ---
Author Organization [facility] [employer] Address [id number] [address] [place] [address] Care Team Providers Care Tomography Technologist Name Role Phone Keya Nieves DIELECTRIC TESTER-ELECTRICIAN MANAGER Primary Care Provider [phone] Social History Tobacco UseTypesPacks/DayYears UsedDateSmoking Tobacco: Never Assessed CommentsUnknownSex and Gender InformationValueDate RecordedSex Assigned at Not on fileLegal NjwBqmqzo34/09/2025 4:43 PM EDTGender IdentityNot on fileSexual OrientationNot on file Plan of Treatment Health MaintenanceDue DateLast DoneCommentsDepression Ecijvghks00/28/1967Tobacco Xjmttcekb11/28/1967Adult BMI Huiwghqug77/28/1973Zoster (Shingles) Vaccine (1 of 2)2004Fall Risk Ghbbghspi67/28/2020COVID-19 Vaccine ( season) /, 03/05/2023, 03/09/2022, Additional history existsInfluenza Bxlfgue97/, 02/24/2024, 03/05/2023, Additional history exists DTaP,Tdap and Td Vaccines (2 - Tdap)/2RSV ( or age 60+ yrs)Gpodjnedk47/18/2023 Medical Devices Not on file Insurance Care Teams Team MemberRelationshipSpecialtyStart DateEnd Date Keya Nieves, DIELECTRIC TESTER-ELECTRICIAN MANAGER [address] [place] [address] [place] [address] PCP - GeneralNurse Practitioner10/08/24
--- OUTSIDE RECORDS SUMMARY | 2025-05-19 12:28 | XMS_ITS | Clinical Summary ---
Author Organization [facility] Address [address] [place] [address] Care Team Providers Care Risk Compliance Analyst Name Role Phone EzequielEstheladi GRAVEL ROOFER-C Primary Care Provider [phone] Allergies Active AllergyReactionsCriticalityNoted JdvxMttyiqebRkdemgvcjgGuvsVkp70/17/2023 VxfuaqozhziJedeHol86/17/6941NqiocwxusrtfhmrwRwciKtw47/17/2023 Medications MedicationSigDispense QuantityRefillsLast FilledStart DateEnd DateStatus ergocalciferol (Vitamin D-2) 1.25 MG (04320 Units) capsule TAKE 1 CAPSULE BY MOUTH [...] mouth with breakfast and with evening meal.Active Eliquis 5 mg tablet Indications:Paroxysmal atrial fibrillation (CMS/HCC)TAKE 1 TABLET BY MOUTH TWO TIMES DAILY. 60 tablet 1115Active apixaban (Eliquis) 5 mg tablet Indications:Paroxysmal atrial fibrillation (CMS/HCC)Take 1 tablet (5 mg) by mouth two times daily. 180 tablet /12/2024Discontinued Active Problems ProblemNoted DateDiagnosed DateCervical cancer nglljlzos14/29/2025History of uterine wqrsubo9212/28/2024Impaired dqqepakzd08/29/4944Aslqxchwi89/29/2025Pelvic pain12/28/2024Well woman exam12/28/2024History of recent fall04/28/2024ight shoulder pain04/28/20245577Mgwanttqvav52/04/6812Fpsconw44/04/3650Nwzfspi97/04/2024 AMS (altered mental status)nemia Ornoaxacz25FatigueHypokalemia10/15/2023 10/15/20236511Wtvfeghzhza56Inversion of left gqeobm8810/15/2023 10/15/2023Malignant neoplasm of lower-inner quadrant of female cnzgmb0110/15/2023 10/15/2023Neurocognitive yjsuneiz36MI 33.0-33.9,adult OsteopeniaSchizophrenia10/15/2023 10/15/2023UTI (urinary tract infection)Vaginitis10/15/2023 10/15/2023Vitamin D vfzsyinxqg45therosclerosis of coronary artery without angina /29/2023nxiety bomfoegk55/17/2023HTN (hypertension)09/16/2022Hyperlipidemia, qghgtomkeox86/17/2023Loss of memory 09/16/2022Major depression with psychotic lyjqpaqn63/17/2023OSA (obstructive sleep apnea)09/16/2022trial xpgdvfprmosi49/23/2023hronic kidney disease due to ofwignebfoci07/23/2023isorder of vein08/22/2022Metabolic encephalopathy 08/22/2022 Encounters DateTypeDepartmentCare NzioTxltyicgseg82/05/2025[facility] [address] [place] [address] Alyson Morrissey CNP Paroxysmal atrial fibrillation (CMS/HCC)from Last 3 Months Immunizations ImmunizationAdministration DatesNext GuoJKG8612/15/2021Influenza, High-dose Seasonal, Quadrivalent, Preservative Free02/14/2022,01/27/2021Influenza, injectable, MDCK, preservative free, wadwpdghgiwp92/21/2019,03/31/2018Moderna 12 YR UP Vaccine BiValent Nxwnzor7203/09/2022Moderna SARS-CoV-2 Cdjkbwdtqed25/28/2021 ,08/23/2020,07/27/2020neumococcal Conjugate PCV 13002/17/2020 Family History Medical HistoryRelationNameCommentsHeart [...] file07/24/2023CommentsUnknownSex and Gender InformationValueDate RecordedSex Assigned at EvyuzKystje70/29/2025 10:21 AM EDT Legal RpdZkmjrs61/23/2023 11:24 AM EDTGender YojmvyduUfgvxs28/29/2025 10:21 AM EDTSexual OrientationHeterosexual or Ohrdzpci07/29/2025 10:21 AM EDT Last Filed Vital Signs Vital SignReadingTime TakenCommentsBlood Hftjkwiv676/7007 10:44 AM EDT Ivgqz057712/28/2024 10:44 AM EDTTemperature--Respiratory Rate--Oxygen Saturation 96%12/28/2024 10:44 AM EDTInhaled Oxygen Concentration--Abmyyr52.5 kg (173 lb) 12/28/2024 10:44 AM YAKKosxbi882.4 cm (5')12/28/2024 10:44 AM EDTBody Mass Index 33.7912/28/2024 10:44 AM EDT Plan of Treatment Health MaintenanceDue DateLast DoneCommentsCT Obvqdxxwhcaa34/28/1955Colonoscopy 1954olorectal Cancer Fmjrtzvea46/28/1955FIT-DNA1954FIT1954 FOBT1954Medicare Annual Wellness (AWV)1955 4235Rodsxvlwjcqoz49/28/1955 Depression Lndfoeale07/28/1967Adult Hwqwhdh6311/27/1976Zoster Vaccines (1 of 2) 2004Fall Risk Jyluightt85/28/2020Pneumococcal Vaccine: 50+ Years (2 of 2 - PPSV23, PCV20, or PCV21)COVID-19 Vaccine ( season), 03/05/2023, 03/09/2022, Additional history exists Influenza [...] topic Insurance Care Teams Team MemberRelationshipSpecialtyStart DateEnd Date Keya Nieves FNP-C [address] [place] [address] PCP - GeneralNurse Practitioner12/28/24
--- OUTSIDE RECORDS SUMMARY | 2025-05-19 12:28 | XMS_ITS | Clinical Summary ---
Author Organization [facility] Address [address], [address] [place] [address] Care Team Providers Care Medical Supply Technician Name Role Phone Jamil Lundberg MD Primary Care Provider [phone] Allergies Active AllergyReactionsCriticalityNoted EgrbEtifgtwcHbojgxpwjxKeueHtp64/17/2023 ZrqvmenayeeMlxrBml34/17/9139HnbkwwyixdawjejuZqgaRri93/17/2023 Medications MedicationSigDispense QuantityRefillsLast FilledStart DateEnd DateStatus levothyroxine [...] InformationValueDate RecordedSex Assigned at BirthNot on fileLegal FfvPcqyhu53/26/2023 1:13 PM EDTGender IdentityNot on fileSexual OrientationNot on file Last Filed Vital Signs Vital SignReadingTime TakenCommentsBlood Uiueidfu005/8910/09/2022 7:06 AM EDT Awnpc237710/09/2022 7:06 AM GCARxevsjuxdgv18.2 ??C (97.1 ??F)10/08/2022 1:25 PM EDTRespiratory Jbkq754110/09/2022 7:06 AM EDTOxygen Vzbsrangju04%10/09/2022 7:06 AM EDTInhaled Oxygen Concentration--Qinbyf22.6 kg (180 lb)10/08/2022 1:21 PM EDT Gtbzkx678.1 cm (5' 5 )10/08/2022 1:21 PM EDTBody Mass Index29.95010/08/2022 1:21 PM EDT Plan of Treatment Health MaintenanceDue DateLast DoneCommentsDepression Mpupcj9611/27/1966Hepatitis C cgtpod3011/27/1972Breast cancer wapoyc5111/27/19940150Nmtfrbyitws78/28/2000Colorectal Cancer Jhdjys1011/28/1999FIT/FOBT: Average risk11/28/1999Fecal-DNA (Cologuard): Average risk11/28/1999Sigmoidoscopy/CT /28/2000Shingles vaccine (1 of 2)2004DEXA (modify frequency per FRAX score)2009Respiratory Syncytial Virus (RSV) or age 60 yrs+ (1 - Risk 60-74 years 1-dose series)2014Pneumococcal 50+ years Vaccine (2 of 2 - PCV20 or PCV21) /Annual Wellness Visit (Medicare Advantage)06/02/2024Flu vaccine (#1)/, 01/27/2021, 02/20/2019, Additional history existsCOVID-19 Vaccine ( season)/12/2021, 03/29/2021, 08/23/2020, Additional history ndvqyrZiewnu44/05/012968/3DTaP/Tdap/Td vaccine (2 - Tdap)Hepatitis A vaccineAged OutNo [...] 6:50 AM EDT)ComponentValueRef RangeTest MethodAnalysis TimePerformed AtPathologist UdzracutiWvxibtjgpqc290<200 mg/dL10/04/2022 6:50 AM EDTMERCY LABORATORIESComment: Cholesterol Guidelines: <200 Desirable 200-240 ??Borderline >240 Undesirable OYA330>40 mg/dL10/04/2022 6:50 AM EDTMERCY LABORATORIESComment: HDL Guidelines: <40 Undesirable 40-59 ?Borderline >59 Desirable LDL Lxzzydnsdqh553 - 130 mg/dL10/04/2022 6:50 AM EDTMERCY LABORATORIESComment: [...] MDCHEMISTRY ORDERABLES Final ResultPerforming OrganizationAddressCity/State/ZIP CodePhone Number [facility] [address] [place] [address], [facility] [phone] [facility] [email or web address] [address] [place] [address], [facility] [phone] from Last 3 Months or Most Recently Relevant to Health Maintenance Insurance Care Teams Team MemberRelationshipSpecialtyStart DateEnd Date Jamil Lundberg MD [address] [place] [address] PCP - GeneralPsychiatry08/25/22
== END 2025-05-19 12:25 | disposition home or self-care (01) ==
LOC: FHNEUROLOG 12:24
PROVIDERS: PCP Nurse Practitioner; Visit Provider Psychiatry & Neurology Neurology
DX: G47.33 Obstructive sleep apnea (adult) (pediatric) (principal)
CPT/HCPCS: G0463